=== PATIENT | male | born 1950 | race Caucasian/White ===

== ENCOUNTER → 2018-08-24 | Outpatient (CLI) | payer MEDICARE ==
[~2018-08-24] MED LIST: CYCL10TA9 PO; LISI40TA PO; MTF500T PO; NAPR-243 PO; PROP80CA4 PO; ROSU10TA12 PO; SILD100T PO
--- NOTE | 2018-08-24 15:26 | Diagnostic Imaging Report ---
INDICATION: Renal insufficiency. TECHNIQUE: Bilateral renal sonography was performed in the routine fashion. FINDINGS: The right kidney measures 12.9 x 5.1 x 5.6 cm. The left kidney measures 13.2 x 6.0 x 5.4 cm. Both kidneys show normal cortical echogenicity and thickness with no hydronephrosis or mass. There are bilateral ureteral jets. The urinary bladder appears unremarkable. IMPRESSION: Unremarkable bilateral renal sonography. Dictated by: Dictated on workstation # [id number]
== END ==
LOC: RAD 13:38
PROVIDERS: ATTEND Family Medicine
DX: N28.9 Disorder of kidney and ureter, unspecified (principal)
CPT/HCPCS: 76770

== ENCOUNTER 2019-10-14 21:51 | Emergency (ER) | payer MEDICARE ==
[~2019-10-14] VITALS: Ht 190.5 cm; Wt 105.0 kg
--- OUTSIDE RECORDS SUMMARY | 2019-10-14 22:25 | XMS REPORT | CCD ---
Author Author Inocente Og D.O. Organization [facility] Address [address] [place] [address] Phone Care Team Providers Care [place] Name Role Phone Najma Og D.O. PP Unavailable CCM Unavailable Summary Purpose Interface Exchange Insurance Providers Payer name Policy type / Coverage type Covered republican ID Effective Begin Date Effective End Date [employer]RO[employer] MEDICARE Medicare Part B [id number] Unknown [facility] Medicare Part B [id number] Un known Family history Father Diagnosis Age At Onset Diabetes mellitus Type 2 Unknown Myocardial infarction Unknown Brother Diagnosis Age At Onset Diabetes mellitus Type 2 Unknown Mother Diagnosis Age At Onset Osteoarthritis Unknown Cerebrovascular disease Unknown Social History Social History Element Codes Description Effective Dates Tobacco history SNOMED CT: 816535066 Never smoker 12/21/2014 Marital status Unknown 07/30/2010 Employment Unknown Retired 07/30/2010 Allergies, Adverse Reactions, Alerts Substance Reaction Codes Entered Date Inactivated Date Status * NO KNOWN ENVIRONMENTAL ALLERGIES Unknown 04/24/2010 N o Inactive Date Active * NO KNOWN FOOD ALLERGIES Unknown 04/24/2010 No Inactiv e Date Active * NO KNOWN DRUG ALLERGIES Unknown 04/24/2010 No Inactiv e Date Active Problems Condition Codes Effective Dates Condition Status Essential hypertension ICD-9: 401.9 ICD-10: I10 07/22/2013 Active Stress reaction ICD-9: 308.9 ICD-10: F43.0 08/30/2019 Active Type 2 diabetes mellitus with hyperglycemia ICD-9: 250 .02 ICD-10: E11.65 06/02/2019 Active Gastro-esophageal reflux disease without esophagitis I CD-9: 530.81 ICD-10: K21.9 06/02/2019 Active Mixed hyperlipidemia ICD-9: 272.2 ICD-10: E78.2 05/24/2019 Active Type 2 diabetes mellitus without complications ICD-9: 250.00 ICD-10: E11.9 09/18/2014 Active Chronic kidney disease, unspecified ICD-9: 585.9 ICD-10: N18.9 08/20/2018 Active Unspecified kidney failure ICD-9: 586 ICD-10: N19 08/19/2018 Active Type 1 diabetes mellitus with unspecified complication s ICD-9: 250.00 ICD-10: E10.8 09/18/2014 Active Mixed hyperlipidemia ICD-9: 272.4 ICD-10: E78.2 12/14/2013 Active Nicotine dependence, unspecified, uncomplicated ICD-9: 305.1 ICD-10: F17.200 07/09/2016 Active Encounter for screening for malignant neoplasm of pros sommers ICD-9: V76.44 ICD-10: Z12.5 08/30/2015 Active Male erectile disorder ICD-9: 607.84 ICD-10: F52.21 01/13/2018 Active Glossitis ICD-9: 529.0 ICD-10: K14.0 10/06/2017 Active Actinic keratosis ICD-9: 702.0 ICD-10: L57.0 03/02/2012 Active Other fatigue ICD-9: 780.79 ICD-10: R53.83 08/15/2014 Active Bitten or stung by nonvenomous insect an d other nonvenomous arthropods, subsequent encounter ICD-9: V58.89 ICD-10: W57.XXXD 09/11/2015 Active Insect bite (nonvenomous), right thigh, subsequent enc ounter ICD-9: V58.89 ICD-10: S70.361D 09/11/2015 Active Bitten or stung by nonvenomous insect an d other nonvenomous arthropods, initial encounter ICD-9: 919.4 ICD-10: W57.XXXA 09/09/2015 Active Insect bite (nonvenomous), right thigh, initial encoun ter ICD-9: 916.4 ICD-10: S70.361A 09/09/2015 Active Abnormal weight gain ICD-9: 783.1 ICD-10: R63.5 09/05/2015 Active Encounter for immunization ICD-9: V06.5 ICD-10: Z23 09/05/2015 Active Encounter for screening for malignant neoplasm of colo n ICD-9: V76.51 ICD-10: Z12.11 09/05/2015 Active Diarrhea, unspecified ICD-9: 787.91 ICD-10: R19.7 11/25/2012 Active FLU VACCINE ICD-9: V04.81 ICD-10: Z23 01/16/2015 Active PNEUMOCOCCAL VACCINE ICD-9: V03.82 ICD-10: Z23 01/16/2015 Active Impaired fasting glucose ICD-9: 790.21 ICD-10: R73.01 12/14/2013 Active ACTINIC KERATOSIS ICD-9: 702.0 03/02/2012 Active DM W/O COMPLICATION TYPE II ICD-9: 250.00 09/18/2014 Acti ve MALAISE AND FATIGUE ICD-9: 780.79 08/15/2014 Active HYPERLIPIDEMIA NEC/NOS ICD-9: 272.4 12/14/2013 Active IMPAIRED FASTING GLUCOSE ICD-9: 790.21 12/14/2013 Active Post herpetic neuralgia ICD-9: 053.19 09/23/2013 Active Shingles ICD-9: 053.9 09/23/2013 Active HYPERTENSION ICD-9: 401.9 07/22/2013 Active DIARRHEA ICD-9: 787.91 11/25/2012 Active Dry skin dermatitis ICD-9: 692.89 08/27/2012 Active Fungal dermatitis ICD-9: 111.9 08/27/2012 Active Hypertension Unknown 04/15/2011 Active URINARY TRACT INFECTION ICD-9: 599.0 10/29/2010 Active TOBACCO USE DISORDER ICD-9: 305.1 04/24/2010 Active Erectile dysfunction ICD-9: 607.84 04/19/2010 Active MIXED HYPERLIPIDEMIA ICD-9: 272.2 04/19/2010 Active Osteoarthritis ICD-9: 715.90 04/19/2010 Active ROUTINE MEDICAL EXAM ICD-9: V70.0 04/19/2010 Active Medications Medication Codes Instructions Start Date Stop Date Status Fill Instructions fenofibrate micronized 134 mg capsule RxNorm: 787874 1 Capsule(s) Oral QD for triglycerides 10/03/2019 01/01/2020 Active amlodipine 5 mg tablet RxNorm: 736665 TAKE 1 TABLET BY MOUTH ON CE DAILY 09/12/2019 12/10/2019 Active propranolol ER 80 mg capsule,24 hr,extended release RxNorm: 498203 TAKE 1 CAPSULE BY MOUTH ONCE DAILY 09/08/2019 12/06/2019 Active metformin ER 500 mg tablet,extended release 24 hr RxNorm: 86 0975 TAKE 1 TABLET BY MOUTH ONCE DAILY 09/08/2019 12/06/2019 Active escitalopram 10 mg tablet RxNorm: 722399 1 Tablet(s) Oral QD 201911/28/2019 Active fenofibrate micronized 134 mg capsule RxNorm: 424608 TA KE 1 CAPSULE BY MOUTH ONCE DAILY FOR TRIGLYCERIDES 07/08/2019 10/02/2019 Inactive amlodipine 5 mg tablet RxNorm: 303492 TAKE 1 TABLET BY MOUTH ON CE DAILY 06/16/2019 09/11/2019 Inactive metformin ER 500 mg tablet,extended release 24 hr RxNorm: 86 0975 TAKE 1 TABLET BY MOUTH ONCE DAILY 06/10/2019 09/07/2019 Inactive propranolol ER 80 mg capsule,24 hr,extended release RxNorm: 801289 TAKE 1 CAPSULE BY MOUTH ONCE DAILY 06/10/2019 09/07/2019 Inactive Vitamin D3 25 mcg (1,000 unit) capsule RxNorm: 127649 1 Capsule(s) Oral two times a day 06/02/2019 No Stop Date Active turmeric 400 mg capsule RxNorm: 1 Capsule(s) Oral QD 06/02/2019 No Stop Date Active Fish Oil 120 mg-180 mg-500 mg capsule RxNorm: 2 Capsule(s) Ora l QD 06/02/2019 No Stop Date Active 16.2 mg-0.1037 mg-0.0194 mg tablet RxNorm: 7108896 1 Tablet(s) Oral four times a day as needed abdominal pain/diarrhea 06/02/2019 No Stop D ate Active fenofibrate micronized 134 mg capsule RxNorm: 002266 1 Capsule(s) Oral QD for triglycerides 04/14/2019 07/07/2019 Inactive amlodipine 5 mg tablet RxNorm: 581178 TAKE 1 TABLET BY MOUTH ON CE DAILY 03/22/2019 06/15/2019 Inactive metformin ER 500 mg tablet,extended release 24 hr RxNorm: 86 0975 TAKE 1 TABLET BY MOUTH ONCE DAILY 03/15/2019 06/09/2019 Inactive propranolol ER 80 mg capsule,24 hr,extended release RxNorm: 829732 TAKE 1 CAPSULE BY MOUTH ONCE DAILY 03/15/2019 06/09/2019 Inactive amlodipine 5 mg tablet RxNorm: 725753 1 Tablet(s) PO QD 12/27/2018 Inactive fenofibrate micronized 134 mg capsule RxNorm: 329507 TA KE 1 CAPSULE BY MOUTH ONCE DAILY FOR TRIGLYCERIDES 10/11/2018 04/13/2019 Inactive amlodipine 5 mg tablet RxNorm: 965828 1 Tablet(s) PO QD 09/30/2018 Inactive metformin ER 500 mg tablet,extended release 24 hr RxNorm: 86 0975 TAKE 1 TABLET BY MOUTH ONCE DAILY 09/21/2018 03/14/2019 Inactive propranolol ER 80 mg capsule,24 hr,extended release RxNorm: 285811 TAKE 1 CAPSULE BY MOUTH ONCE DAILY 09/21/2018 03/14/2019 Inactive amlodipine 5 mg tablet RxNorm: 451661 1 Tablet(s) PO QD 08/25/2018 Inactive amlodipine 5 mg tablet RxNorm: 042121 1 Tablet(s) PO QD 08/25/2018 Inactive lisinopril 40 mg tablet RxNorm: 045604 TAKE 1 TABLET BY MOUTH O NCE DAILY 07/21/2018 08/24/2018 Inactive fenofibrate micronized 134 mg capsule RxNorm: 362522 TA KE 1 CAPSULE BY MOUTH ONCE DAILY FOR TRIGLYCERIDES 07/12/2018 10/10/2018 Inactive propranolol ER 80 mg capsule,24 hr,extended release RxNorm: 908354 TAKE 1 CAPSULE BY MOUTH ONCE DAILY 06/21/2018 09/20/2018 Inactive lisinopril 40 mg tablet RxNorm: 087109 TAKE 1 TABLET BY MOUTH O NCE DAILY 04/26/2018 07/20/2018 Inactive metformin ER 500 mg tablet,extended release 24 hr RxNorm: 262201 1 Tablet(s) QD 03/31/2018 09/20/2018 Inactive lisinopril 40 mg tablet RxNorm: 522527 TAKE 1 TABLET BY MOUTH O NCE DAILY 01/28/2018 04/25/2018 Inactive Vitamin D3 5,000 unit tablet RxNorm: 558749 1 Tablet(s) PO QD 01/1908/18/2018 Inactive fenofibrate micronized 134 mg capsule RxNorm: 901897 1 Capsule(s) PO QD for triglycerides 01/19/2018 07/11/2018 Inactive metformin ER 500 mg tablet,extended release 24 hr RxNorm: 472601 1 Tablet(s) QD 12/31/2017 03/30/2018 Inactive metformin ER 500 mg tablet,extended release 24 hr RxNorm: 421155 Tablet(s) 12/30/2017 12/30/2017 Inactive propranolol ER 80 mg capsule,24 hr,extended release RxNorm: 977756 1 Capsule(s) PO QD 12/17/2017 06/14/2018 Inactive metformin ER 500 mg tablet,extended release 24 hr RxNorm: 86 0975 1 Tablet(s) PO QD DUE FOR LABS AND APPT 12/02/2017 12/30/2017 Inactive Crestor 10 mg tablet RxNorm: 226927 TAKE ONE TABLET BY MOUTH ON CE DAILY 11/01/2017 01/18/2018 Inactive lisinopril 40 mg tablet RxNorm: 962277 TAKE ONE TABLET BY MOUTH ONCE DAILY 11/01/2017 01/27/2018 Inactive metformin ER 500 mg tablet,extended release 24 hr RxNorm: 86 0975 1 Tablet(s) PO QD DUE FOR LABS AND APPT 10/16/2017 10/30/2017 Inactive metformin ER 500 mg tablet,extended release 24 hr RxNorm: 86 0975 1 Tablet(s) PO QD DUE FOR LABS AND APPT 09/08/2017 09/22/2017 Inactive propranolol ER 80 mg capsule,24 hr,extended release RxNorm: 919887 1 Capsule(s) PO QD DUE FOR APPT 09/08/2017 12/17/2017 Inactive Crestor 10 mg tablet RxNorm: 524484 1 Tablet(s) PO QD T CHELSI ONE TABLET BY MOUTH DAILY 03/11/2017 09/06/2017 Inactive propranolol ER 80 mg capsule,24 hr,extended release RxNorm: 182238 1 Capsule(s) PO QD TAKE ONE CAPSULE BY MOUTH DAILY - REPLACES AMLODOPINE 03/11/2017 09/08/2017 Inactive metformin ER 500 mg tablet,extended release 24 hr RxNorm: 86 0975 1 Tablet(s) PO QD 03/11/2017 09/08/2017 Inactive lisinopril 40 mg tablet RxNorm: 647100 1 Tablet(s) PO QD 03/11/2017 0 09/06/2017 Inactive lisinopril 40 mg tablet RxNorm: 516031 1 Tablet(s) PO QD 02/16/2017 1 05/11/2016 Inactive metformin ER 500 mg tablet,extended release 24 hr RxNorm: 86 0975 1 Tablet(s) PO QD Due for labs and follow up before further refills 02/16/2017 017 Inactive propranolol ER 80 mg capsule,24 hr,extended release RxNorm: 579693 Capsule(s) TAKE ONE CAPSULE BY MOUTH DAILY - REPLACES AMLODOPINE 11/19/20162016 Inactive lisinopril 40 mg tablet RxNorm: 764889 1 Tablet(s) PO QD 11/17/2016 1 04/18/2016 Inactive metformin ER 500 mg tablet,extended release 24 hr RxNorm: 86 0975 1 Tablet(s) PO QD 11/17/2016 02/16/2017 Inactive lisinopril 40 mg tablet RxNorm: 243104 1 Tablet(s) PO Q D TAKE ONE TABLET BY MOUTH DAILY 08/19/2016 11/17/2016 Inactive metformin ER 500 mg tablet,extended release 24 hr RxNorm: 86 0975 Tablet(s) TAKE ONE TABLET BY MOUTH DAILY 08/19/2016 11/16/2016 Inactive propranolol ER 80 mg capsule,24 hr,extended release RxNorm: 194639 Capsule(s) TAKE ONE CAPSULE BY MOUTH DAILY - REPLACES AMLODOPINE 08/19/20162016 Inactive Crestor 10 mg tablet RxNorm: 191129 TAKE ONE TABLET BY MOUTH DAILY 06/16/2016 03/10/2017 Inactive lisinopril 40 mg tablet RxNorm: 268792 1 Tablet(s) PO Q D TAKE ONE TABLET BY MOUTH DAILY 05/23/2016 08/18/2016 Inactive metformin ER 500 mg tablet,extended release 24 hr RxNorm: 86 0975 TAKE ONE TABLET BY MOUTH DAILY 05/23/2016 08/19/2016 Inactive propranolol ER 80 mg capsule,24 hr,extended release RxNorm: 016767 TAKE ONE CAPSULE BY MOUTH DAILY - REPLACES AMLODOPINE 05/23/2016 08/19/2016 [place] [facility] Crestor 10 mg tablet RxNorm: 411377 TAKE ONE TABLET BY MOUTH DAILY 03/31/2016 06/15/2016 Inactive metformin ER 500 mg tablet,extended release 24 hr RxNorm: 86 0975 TAKE ONE TABLET BY MOUTH DAILY 02/19/2016 05/22/2016 Inactive propranolol ER 80 mg capsule,24 hr,extended release RxNorm: 043782 TAKE ONE CAPSULE BY MOUTH DAILY - REPLACES AMLODOPINE 11/23/2015 05/20/2016 [place] [facility] metformin ER 500 mg tablet,extended release 24 hr RxNorm: 86 0975 TAKE ONE TABLET BY MOUTH DAILY 11/08/2015 02/05/2016 Inactive Bactroban Nasal 2 % ointment RxNorm: 097486 Apply topic ally to affected area twice daily 09/10/2015 03/09/2016 Inactive Vibramycin 100 mg capsule RxNorm: 405960 1 Capsule(s) PO BID 201509/23/2015 Inactive lisinopril 40 mg tablet RxNorm: 039748 1 Tablet(s) PO Q D TAKE ONE TABLET BY MOUTH DAILY 08/27/2015 02/22/2016 Inactive metformin ER 500 mg tablet,extended release 24 hr RxNorm: 86 0975 TAKE ONE TABLET BY MOUTH DAILY 08/06/2015 11/03/2015 Inactive Levsin/SL 0.125 mg sublingual tablet RxNorm: 9429751 1 T ablet(s) SL Q4H as needed for stomach cramps 06/29/2015 07/03/2015 Inactive lisinopril 40 mg tablet RxNorm: 906420 Tablet(s) TAKE ONE TABLE T BY MOUTH DAILY 06/07/2015 08/26/2015 Inactive propranolol ER 80 mg capsule,24 hr,extended release RxNorm: 386914 TAKE ONE CAPSULE BY MOUTH DAILY - REPLACES AMLODOPINE 05/30/2015 11/22/2015 [place] [facility] metformin ER 500 mg tablet,extended release 24 hr RxNorm: 86 0975 1 Tablet(s) PO QD 05/10/2015 08/05/2015 Inactive Crestor 10 mg tablet RxNorm: 662980 TAKE ONE TABLET BY MOUTH DAILY 04/18/2015 10/14/2015 Inactive metformin ER 500 mg tablet,extended release 24 hr RxNorm: 86 0975 TAKE ONE TABLET BY MOUTH DAILY 02/07/2015 05/10/2015 Inactive sildenafil 20 mg tablet RxNorm: 709193 1 Tablet(s) PO QD 01/17/2015 1 04/17/2014 Inactive propranolol ER 80 mg capsule,24 hr,extended release RxNorm: 675301 1 Capsule(s) PO QD replaces amlodopine 11/28/2014 05/26/2015 Inactive [[facility] FOR UNINSURED PATIENTS -- BIN:[id number], PCN: ASPROD1, Group: [id number], ID# [id number], Process claim through [employer], for questions: . THIS IS NOT INSURANCE.] lisinopril 40 mg tablet RxNorm: 520676 TAKE ONE TABLET BY MOUTH DAILY 11/16/2014 06/07/2015 Inactive lisinopril 40 mg tablet RxNorm: 714440 1 Tablet(s) PO QD 08/21/2014 0 11/15/2014 Inactive [AttnRPh: Saving apply/adjudicate RxGRP: SG20 RxBIN:[id number] RxPCN: ID#:[id number]] lisinopril 40 mg tablet RxNorm: 595442 1 Tablet(s) PO Q D NEEDS SEEN FOR APPOINTMENT 07/14/2014 08/21/2014 Inactive [AttnRPh: Saving apply/adjudicate RxGRP:SG20 RxBIN:[id number] RxPCN: ID#:[id number]] Crestor 10 mg tablet RxNorm: 871993 TAKE ONE TABLET BY MOUTH EV EILEEN DAY 07/06/2014 01/01/2015 Inactive metformin ER 500 mg tablet,extended release 24 hr RxNorm: 86 0975 1 Tablet(s) QD TAKE ONE TABLET BY MOUTH ONCE A DAY 06/09/2014 12/05/2014 Inactive propranolol ER 80 mg capsule,24 hr,extended release RxNorm: 757101 1 Capsule(s) PO QD replaces amlodopine 06/05/2014 11/28/2014 Inactive [[facility] FOR UNINSURED PATIENTS -- BIN:[id number], PCN: [id number], Group: [id number], ID# [id number], Process claim through [employer], for questions: . THIS IS NOT INSURANCE.] propranolol ER 80 mg capsule,24 hr,extended release RxNorm: 769373 1 Capsule(s) PO QD replaces amlodopine 03/07/2014 06/05/2014 Inactive [[facility] FOR UNINSURED PATIENTS -- BIN:[id number], PCN: [id number], Group: [id number], ID# [id number], Process claim through [employer], for questions: . THIS IS NOT INSURANCE.] metformin ER 500 mg tablet,extended release 24 hr RxNorm: 86 0975 TAKE ONE TABLET BY MOUTH ONCE A DAY 12/15/2013 06/09/2014 Inactive propranolol ER 80 mg capsule,24 hr,extended release RxNorm: 046212 1 Capsule(s) PO QD replaces amlodopine 12/09/2013 03/07/2014 Inactive [[facility] -- BIN:292062, PCN: [id number], Group: [id number], ID# [id number], Process claim through [employer], for questions: . THIS IS NOT INSURANCE.] acyclovir 800 mg tablet RxNorm: 409313 1 Tablet(s) PO QID 09/23/2013 09/29/2013 Inactive gabapentin 300 mg capsule RxNorm: 070605 1 Capsule(s) PO BID 201310/07/2013 Inactive metformin ER 500 mg tablet,extended release 24 hr RxNorm: 86 0975 1 Tablet(s) PO QD 09/19/2013 12/14/2013 Inactive propranolol ER 80 mg capsule,24 hr,extended release RxNorm: 779765 1 Capsule(s) PO QD replaces amlodopine 09/15/2013 12/09/2013 Inactive metformin ER 500 mg 24 hr tablet,extended release RxNorm: 86 0975 1 Tablet(s) PO QD 09/15/2013 09/18/2013 Inactive lisinopril 40 mg tablet RxNorm: 092648 1 Tablet(s) PO QD 07/19/2013 0 07/14/2014 Inactive Crestor 10 mg tablet RxNorm: 901328 Tablet(s) PO TAKE O NE TABLET BY MOUTH EVERY DAY 07/12/2013 07/05/2014 Inactive propranolol ER 80 mg capsule,24 hr,extended release RxNorm: 688022 1 Capsule(s) PO QD replaces amlodopine 06/20/2013 09/15/2013 Inactive triamcinolone acetonide 0.1 % topical ointment RxNorm: 87248 36 Application TOP BID 06/20/2013 06/26/2013 Inactive Crestor 10 mg tablet RxNorm: 339139 1 Tablet(s) PO QD 04/18/201310/2013 Inactive Viagra 100 mg tablet RxNorm: 417478 1 Tablet(s) PO as directed 01/0508/18/2018 Inactive TAKE ONE TABLET BY MOUTH DIRECTED Crestor 10 mg tablet RxNorm: 819477 1 Tablet(s) PO QD 01/17/201304/06 Inactive metformin ER 500 mg tablet,extended release 24 hr RxNorm: 86 0975 1 Tablet(s) PO QD TAKE ONE TABLET BY MOUTH EVERY DAY 12/23/2012 09/15/2013 Inactive triamcinolone acetonide 0.1 % topical ointment RxNorm: 10608 36 Application TOP BID 08/27/2012 09/02/2012 Inactive ketoconazole 2 % topical cream RxNorm: 575677 1 Application TOP QAM 08/27/2012 09/02/2012 Inactive lisinopril 40 mg tablet RxNorm: 242835 1 Tablet(s) PO QD 07/21/2012 0 07/15/2013 Inactive Crestor 10 mg tablet RxNorm: 703765 1 Tablet(s) PO QD 07/21/201210/04 Inactive amlodipine 10 mg tablet RxNorm: 642857 1 Tablet(s) PO QHS 07/21/2012 07/15/2013 Inactive metformin ER 500 mg tablet,extended release 24 hr RxNorm: 86 0977 Tablet(s) PO TAKE ONE TABLET BY MOUTH EVERY DAY 03/31/2012 12/22/2012 Inactive lisinopril 40 mg tablet RxNorm: 940930 1 Tablet(s) PO QD 07/29/2011 0 07/20/2012 Inactive amlodipine 10 mg tablet RxNorm: 958790 1 Tablet(s) PO QHS 07/29/2011 07/20/2012 Inactive amlodipine 10 mg Tab RxNorm: 417277 1 Tablet(s) PO QHS 07/29/2011 Inactive Viagra 100 mg tablet RxNorm: 161350 1 Tablet(s) PO as directed 07/0601/24/2013 Inactive TAKE ONE TABLET BY MOUTH DIRECTED Crestor 10 mg tablet RxNorm: 379402 1 Tablet(s) PO QD 07/29/201107/05 Inactive Norvasc 5 mg Tab RxNorm: 629484 1 Tablet(s) PO QD 07/16/2011 07/28/19 12 Inactive Norvasc 5 mg Tab RxNorm: 350293 1 Tablet(s) PO QD 06/26/2011 07/15/19 12 Inactive lisinopril 40 mg Tab RxNorm: 235423 1 Tablet(s) PO QD 05/13/201107/06 Inactive metformin ER 500 mg tablet,extended release 24 hr RxNorm: 86 0977 1 Tablet(s) PO QD 03/18/2011 07/28/2011 Inactive Crestor 10 mg Tab RxNorm: 875233 1 Tablet(s) PO QHS 01/27/20112011 Inactive metformin ER 500 mg 24 hr Tab RxNorm: 335199 1 Tablet(s) PO QD 11/0403/17/2011 Inactive Viagra 100 mg Tab RxNorm: 753709 Tablet(s) PO TAKE ON E TABLET BY MOUTH DIRECTED 08/26/2010 07/28/2011 Inactive metformin ER 500 mg 24 hr Tab RxNorm: 117723 1 Tablet(s) PO QD 07/0611/18/2010 Inactive Crestor 10 mg Tab RxNorm: 022106 1 Tablet(s) PO QHS 07/30/20102010 Inactive Crestor 10 mg Tab RxNorm: 645057 1 Tablet(s) PO QHS 05/20/20102010 Inactive Wellbutrin SR 150 mg Tab RxNorm: 865241 1 Tablet(s) PO QAM 04/24/19 11 07/22/2010 Inactive Multivitamin And Mineral tablet RxNorm: 1 Tablet(s) PO QD No Start Date Active FreeStyle Lite Strips RxNorm: 1 Unit Dose Miscel laneous AC & HS check blood sugar AC and HS No Start Date Active Co Q-10 200 mg capsule RxNorm: 770513 1 Capsule(s) PO QD No Start Date Active lancets RxNorm: 1 Milliliter(s) Miscellaneous AC & HS No Start Robert e Active Vitamin D3 4,000 unit capsule RxNorm: 9202003 1 Capsule(s) PO QD No Start Date 07/08/2016 Inactive Fish Oil 360 mg-1,200 mg capsule RxNorm: 026152 2 Capsule(s) PO QD No Start Date 01/30/2019 Inactive hydrocodone 5 mg-acetaminophen 325 mg tablet RxNorm: 492569 1 Tablet(s) PO Q4H as needed for severe pain No Start Date 12/30/2015 Inactive Xanax 0.25 mg tablet RxNorm: 772669 1/2 Tablet(s) PO PRN for se andrea stress No Start Date 07/08/2016 Inactive lisinopril 40 mg Tab RxNorm: 067836 1 Tablet(s) PO QD No Start Date 0 05/12/2011 Inactive Fish Oil 1,000 mg capsule RxNorm: 1 Capsule(s) PO QD No Start Date 09/18/2014 Inactive naproxen 500 mg Tab RxNorm: 757074 1 Tablet(s) PO BID No Start Date 0 07/28/2011 Inactive aspirin 81 mg tablet RxNorm: 048423 1 Tablet(s) PO QD No Start Date 0 05/09/2018 Inactive Crestor 10 mg Tab RxNorm: 808798 1 Tablet(s) PO QD No Start Date 07/06 Inactive Crestor 5 mg tablet RxNorm: 798172 1 Tablet(s) PO QD No Start Date Inactive Fish Oil Oral RxNorm: Oral No Start Date 09/18/2014 Inactive Viagra 100 mg Tab RxNorm: 730661 1 Tablet(s) PO as directed No Star t Date 08/25/2010 Inactive metformin ER 500 mg 24 hr tablet,extended release RxNorm: 86 0975 1 Tablet(s) PO QD No Start Date 09/14/2013 Inactive Medication Administered No Medication Administered data Immunizations Vaccine Codes Date Status Influenza CVX: 135 01/26/2019 Complete Influenza CVX: 135 01/26/2019 Complete Pneumococcal CVX: 33 09/06/2015 Influenza CVX: 135 01/17/2015 Pneumococcal CVX: 133 01/17/2015 Results Observation Observation Code Item Item Code Result Date [facility] Location GLYCOSYLATED HEMOGLOBIN TEST 04812 Hgb A1c 13054-8 6.6 % 0 08/24/2019 Unknown MEAN GLUC 8466827 Calc Mean Gluc 143 mg/dL 08/24/2019 Unkn own COMPREHENSIVE METABOLIC 60776 AST 24 U/L 2019 Unknown COMPREHENSIVE METABOLIC 46096 ALT 32 U/L 2019 Unknown COMPREHENSIVE METABOLIC 82061 BUN 14 mg/dL 2019 Unknown COMPREHENSIVE METABOLIC 33355 ALBUMIN 4.7 g/dL 2019 Unknown COMPREHENSIVE METABOLIC 09909 CHLORIDE 103 mmol/L 08/23 Unknown COMPREHENSIVE METABOLIC 75970 Bili Total 0.5 mg/dL 08/23 Unknown COMPREHENSIVE METABOLIC 15701 ALK PHOS 57 U/L 2019 Unknown COMPREHENSIVE METABOLIC 74880 SODIUM 140 mmol/L 08/23 Unknown COMPREHENSIVE METABOLIC 19408 CREATININE 1.20 mg/dL 08/05 Unknown COMPREHENSIVE METABOLIC 17999 CALCIUM 9.9 mg/dL 2019 Unknown COMPREHENSIVE METABOLIC 98276 POTASSIUM 4.4 mmol/L 08/23 Unknown COMPREHENSIVE METABOLIC 62582 Total Protein 6.9 g/dL Unknown COMPREHENSIVE METABOLIC 20485 Glucose 123 mg/dL 2019 Unknown COMPREHENSIVE METABOLIC 04274 Bicarbonate 25 mmol/L 08/05 Unknown COMPREHENSIVE METABOLIC 50463 AGAP 12 mmol/L 2019 Unknown GFR CALC 2326433 GFR Afr Amr >60 mL/min 08/24/2019 Unknow n GFR CALC 5862351 GFR Non Afr Amr 60 mL/min 08/24/2019 Unk nown GLYCOSYLATED HEMOGLOBIN TEST 29989 Hgb A1c 10833-6 6.7 % 0 05/24/2019 Unknown COMPREHENSIVE METABOLIC 26431 AST 21 U/L 2019 Unknown COMPREHENSIVE METABOLIC 92476 ALT 26 U/L 2019 Unknown COMPREHENSIVE METABOLIC 28748 BUN 14 mg/dL 2019 Unknown COMPREHENSIVE METABOLIC 19305 ALBUMIN 4.4 g/dL 2019 Unknown COMPREHENSIVE METABOLIC 22174 CHLORIDE 102 mmol/L 05/24 Unknown COMPREHENSIVE METABOLIC 64881 Bili Total 0.4 mg/dL 05/24 Unknown COMPREHENSIVE METABOLIC 49383 ALK PHOS 55 U/L 2019 Unknown COMPREHENSIVE METABOLIC 06838 SODIUM 139 mmol/L 05/24 Unknown COMPREHENSIVE METABOLIC 69539 CREATININE 1.28 mg/dL 05/07 Unknown COMPREHENSIVE METABOLIC 38770 CALCIUM 9.7 mg/dL 2019 Unknown COMPREHENSIVE METABOLIC 03486 POTASSIUM 4.7 mmol/L 05/24 Unknown COMPREHENSIVE METABOLIC 18127 Total Protein 6.8 g/dL Unknown COMPREHENSIVE METABOLIC 61449 Glucose 130 mg/dL 2019 Unknown COMPREHENSIVE METABOLIC 19452 Bicarbonate 29 mmol/L 05/07 Unknown COMPREHENSIVE METABOLIC 24503 AGAP 8 mmol/L 2019 Unknown MEAN GLUC 8398916 Calc Mean Gluc 146 mg/dL 05/24/2019 Unkn own GFR CALC 1302770 GFR Afr Amr >60 mL/min 05/24/2019 Unknow n GFR CALC 2761105 GFR Non Afr Amr 56 mL/min 05/24/2019 Unk nown MEAN GLUC 1422904 Calc Mean Gluc 140 mg/dL 01/26/2019 Unkn own GLYCOSYLATED HEMOGLOBIN TEST 26664 Hgb A1c 76549-3 6.5 % 1 Unknown COMPREHENSIVE METABOLIC 78966 AST 17 U/L 2018 Unknown COMPREHENSIVE METABOLIC 23266 ALT 19 U/L 2018 Unknown COMPREHENSIVE METABOLIC 99087 BUN 19 mg/dL 2018 Unknown COMPREHENSIVE METABOLIC 78690 ALBUMIN 4.3 g/dL 2018 Unknown COMPREHENSIVE METABOLIC 85532 CHLORIDE 103 mmol/L 01/26 Unknown COMPREHENSIVE METABOLIC 93921 Bili Total 0.6 mg/dL 01/26 Unknown COMPREHENSIVE METABOLIC 46802 ALK PHOS 60 U/L 2018 Unknown COMPREHENSIVE METABOLIC 33530 SODIUM 140 mmol/L 01/26 Unknown COMPREHENSIVE METABOLIC 33032 CREATININE 1.21 mg/dL 01/05 Unknown COMPREHENSIVE METABOLIC 61245 CALCIUM 9.6 mg/dL 2018 Unknown COMPREHENSIVE METABOLIC 45463 POTASSIUM 4.5 mmol/L 01/26 Unknown COMPREHENSIVE METABOLIC 77960 Total Protein 6.7 g/dL Unknown COMPREHENSIVE METABOLIC 91348 Glucose 111 mg/dL 2018 Unknown COMPREHENSIVE METABOLIC 42606 Bicarbonate 28 mmol/L 01/05 Unknown COMPREHENSIVE METABOLIC 60109 AGAP 9 mmol/L 2018 Unknown COMPLETE BLOOD COUNT [id number] WBC 10.7 10e9/L 019 Unknown COMPLETE BLOOD COUNT [id number] RBC 4.38 10e12/L 2018 Unknown COMPLETE BLOOD COUNT [id number] HEMOGLOBIN 13.7 g/dL 01/27/20 19 Unknown COMPLETE BLOOD COUNT [id number] HEMATOCRIT 42.0 % 01/27/20 19 Unknown COMPLETE BLOOD COUNT [id number] MCV 95.9 fL 9 Unknown COMPLETE BLOOD COUNT [id number] MCH 31.3 pg 9 Unknown COMPLETE BLOOD COUNT [id number] MCHC 32.6 g/dL 9 Unknown COMPLETE BLOOD COUNT [id number] PLATELET COUNT 232 10e9/L Unknown COMPLETE BLOOD COUNT [id number] Mean Plt Volume 11.4 fL Unknown COMPLETE BLOOD COUNT [id number] Neut Auto 68.7 % 9 Unknown COMPLETE BLOOD COUNT [id number] Lymph Auto 21.2 % 01/27/20 19 Unknown COMPLETE BLOOD COUNT [id number] [place] Auto 8.1 % 9 Unknown COMPLETE BLOOD COUNT [id number] RDW 14.1 % 9 Unknown COMPLETE BLOOD COUNT 9008951 Eos Auto 1.8 % 9 Unknown COMPLETE BLOOD COUNT 8694526 Baso Auto 0.2 % 9 Unknown COMPLETE BLOOD COUNT [id number] Neutrophil Abs 7.35 10e9/L Unknown COMPLETE BLOOD COUNT [id number] Lymphocyte Abs 2.27 10e9/L Unknown COMPLETE BLOOD COUNT [id number] Monocyte Abs 0.87 10e9/L 01/05 Unknown COMPLETE BLOOD COUNT [id number] Eosinophil Abs 0.19 10e9/L Unknown COMPLETE BLOOD COUNT 4298159 RDW-SD 47.7 fL 9 Unknown COMPLETE BLOOD COUNT [id number] Basophil Abs 0.02 10e9/L 01/05 Unknown GFR CALC [id number] GFR Non Afr Amr 59 mL/min 01/26/2019 Unk nown GFR CALC [id number] GFR Afr Amr >60 mL/min 01/26/2019 Unknow n LIPID GROUP 92305 Cholesterol 215 mg/dL 01/26/2019 Unkno wn LIPID GROUP 08872 Triglyceride 221 mg/dL 01/26/2019 Unkn own LIPID GROUP 51807 HDL CHOLESTEROL 41 mg/dL 01/26/2019 U nknown LIPID GROUP 49600 Chol/HDL Ratio 5.24 ratio 01/26/2019 U nknown LIPID GROUP 56727 NON-HDL Chol 174 mg/dL 01/26/2019 Unkn own LIPID GROUP 82634 LDL Cholesterol 130 mg/dL 01/26/2019 [place] [address] Glucose 104 mg/dL 09/30 [place] [address] CREATININE 1.18 mg/dL [place] [address] BUN 19 mg/dL 09/30 [place] [address] SODIUM 139 mmol/L 09/05 [place] [address] POTASSIUM 4.1 mmol/L 09/05 [place] [address] CHLORIDE 105 mmol/L 09/05 [place] [address] Bicarbonate 26 mmol/L [place] [address] AGAP 8 mmol/L 09/30 [place] [address] CALCIUM 9.3 mg/dL 09/30 Unknown GFR CALC 1578859 GFR Non Afr Amr >60 mL/min 09/30/2018 Un known GFR CALC 6743464 GFR Afr Amr >60 mL/min 09/30/2018 Unknow n MICROALBUMIN URINE RANDOM 56889 U Microalbumin <2.0 mg/L 08/19/2018 Unknown MICROALBUMIN URINE RANDOM 04803 U Creatinine 66 mg/dL 0 08/19/2018 Unknown MICROALBUMIN URINE RANDOM 02138 ALB/CR Ratio <3.0 mg/gCR 08/19/2018 Unknown COMPREHENSIVE METABOLIC 53143 AST 21 U/L 2018 Unknown COMPREHENSIVE METABOLIC 97273 ALT 20 U/L 2018 Unknown COMPREHENSIVE METABOLIC 46861 BUN 31 mg/dL 2018 Unknown COMPREHENSIVE METABOLIC 87942 ALBUMIN 4.4 g/dL 2018 Unknown COMPREHENSIVE METABOLIC 53810 CHLORIDE 105 mmol/L 08/16 Unknown COMPREHENSIVE METABOLIC 54402 Bili Total 0.5 mg/dL 08/16 Unknown COMPREHENSIVE METABOLIC 41980 ALK PHOS 40 U/L 2018 Unknown COMPREHENSIVE METABOLIC 24722 SODIUM 140 mmol/L 08/16 Unknown COMPREHENSIVE METABOLIC 29370 CREATININE 1.45 mg/dL 08/04 Unknown COMPREHENSIVE METABOLIC 76870 CALCIUM 9.8 mg/dL 2018 Unknown COMPREHENSIVE METABOLIC 74432 POTASSIUM 5.1 mmol/L 08/16 Unknown COMPREHENSIVE METABOLIC 45932 Total Protein 6.9 g/dL Unknown COMPREHENSIVE METABOLIC 63985 Glucose 110 mg/dL 2018 Unknown COMPREHENSIVE METABOLIC 49007 Bicarbonate 25 mmol/L 08/04 Unknown COMPREHENSIVE METABOLIC 42515 AGAP 10 mmol/L 2018 Unknown GFR CALC 7117522 GFR Afr Amr 58 mL/min 08/16/2018 Unknown GFR CALC 5692041 GFR Non Afr Amr 48 mL/min 08/16/2018 Unk nown GLYCOSYLATED HEMOGLOBIN TEST 81316 Hgb A1c 01745-3 5.9 % 0 08/16/2018 Unknown LIPID GROUP 22269 Cholesterol 226 mg/dL 08/16/2018 Unkno wn LIPID GROUP 58971 Triglyceride 335 mg/dL 08/16/2018 Unkn own LIPID GROUP 88125 HDL CHOLESTEROL 32 mg/dL 08/16/2018 U nknown LIPID GROUP 86102 Chol/HDL Ratio 7.06 ratio 08/16/2018 U nknown LIPID GROUP 48243 NON-HDL Chol 194 mg/dL 08/16/2018 Unkn own LIPID GROUP 06301 LDL Cholesterol 127 mg/dL 08/16/2018 U nknown THYROID STIMULATING HORMONE 33583 TSH 2.475 uIU/mL 08/16/2018 Unknown COMPLETE BLOOD COUNT 9283755 WBC 7.5 10e9/L 08/17/19 19 Unknown COMPLETE BLOOD COUNT [id number] RBC 4.09 10e12/L 2018 Unknown COMPLETE BLOOD COUNT 1442326 HEMOGLOBIN 12.9 g/dL 08/17/19 19 Unknown COMPLETE BLOOD COUNT [id number] HEMATOCRIT 40.0 % 08/17/19 19 Unknown COMPLETE BLOOD COUNT [id number] MCV 97.8 fL 9 Unknown COMPLETE BLOOD COUNT 0751004 MCH 31.5 pg 9 Unknown COMPLETE BLOOD COUNT 0689552 MCHC 32.3 g/dL 9 Unknown COMPLETE BLOOD COUNT 7759604 PLATELET COUNT 258 10e9/L Unknown COMPLETE BLOOD COUNT 1926788 Mean Plt Volume 11.4 fL Unknown COMPLETE BLOOD COUNT 2446824 Neut Auto 62.9 % 9 Unknown COMPLETE BLOOD COUNT 0999116 Lymph Auto 27.3 % 08/17/19 19 Unknown COMPLETE BLOOD COUNT 7229843 [place] Auto 8.2 % 9 Unknown COMPLETE BLOOD COUNT 5509456 RDW 13.3 % 9 Unknown COMPLETE BLOOD COUNT 6139085 Eos Auto 1.5 % 9 Unknown COMPLETE BLOOD COUNT 9117465 Baso Auto 0.1 % 9 Unknown COMPLETE BLOOD COUNT 0876362 Neutrophil Abs 4.72 10e9/L Unknown COMPLETE BLOOD COUNT 1994861 Lymphocyte Abs 2.05 10e9/L Unknown COMPLETE BLOOD COUNT [id number] Monocyte Abs 0.62 10e9/L 08/04 Unknown COMPLETE BLOOD COUNT [id number] Eosinophil Abs 0.11 10e9/L Unknown COMPLETE BLOOD COUNT 9379521 RDW-SD 46.7 fL 9 Unknown COMPLETE BLOOD COUNT [id number] Basophil Abs 0.01 10e9/L 08/04 Unknown MEAN GLUC 2160418 Calc Mean Gluc 123 mg/dL 08/16/2018 Unkn own LIPID GROUP 19497 Cholesterol 212 mg/dL 05/05/2018 Unkno wn LIPID GROUP 74601 Triglyceride 271 mg/dL 05/05/2018 Unkn own LIPID GROUP 92156 HDL CHOLESTEROL 38 mg/dL 05/05/2018 U nknown LIPID GROUP 55937 Chol/HDL Ratio 5.58 ratio 05/05/2018 U nknown LIPID GROUP 59087 NON-HDL Chol 174 mg/dL 05/05/2018 Unkn own LIPID GROUP 96920 LDL Cholesterol 120 mg/dL 05/05/2018 U nknown GFR CALC 5455484 GFR Non Afr Amr 49 mL/min 05/05/2018 Unk nown GFR CALC 7696369 GFR Afr Amr 59 mL/min 05/05/2018 Unknown GLYCOSYLATED HEMOGLOBIN TEST 47259 Hgb A1c 98498-8 6.0 % 0 05/05/2018 Unknown MEAN GLUC 1549540 Calc Mean Gluc 126 mg/dL 05/05/2018 Unkn own COMPREHENSIVE METABOLIC 69613 AST 18 U/L 2018 Unknown COMPREHENSIVE METABOLIC 31784 ALT 23 U/L 2018 Unknown COMPREHENSIVE METABOLIC 07070 BUN 30 mg/dL 2018 Unknown COMPREHENSIVE METABOLIC 84321 ALBUMIN 4.3 g/dL 2018 Unknown COMPREHENSIVE METABOLIC 05426 CHLORIDE 106 mmol/L 05/05 Unknown COMPREHENSIVE METABOLIC 67656 Bili Total 0.4 mg/dL 05/05 Unknown COMPREHENSIVE METABOLIC 01821 ALK PHOS 39 U/L 2018 Unknown COMPREHENSIVE METABOLIC 78095 SODIUM 139 mmol/L 05/05 Unknown COMPREHENSIVE METABOLIC 03232 CREATININE 1.44 mg/dL 04/08 Unknown COMPREHENSIVE METABOLIC 88097 CALCIUM 9.6 mg/dL 2018 Unknown COMPREHENSIVE METABOLIC 47760 POTASSIUM 4.7 mmol/L 05/05 Unknown COMPREHENSIVE METABOLIC 78035 Total Protein 6.6 g/dL Unknown COMPREHENSIVE METABOLIC 79755 Glucose 112 mg/dL 2018 Unknown COMPREHENSIVE METABOLIC 05948 Bicarbonate 28 mmol/L 04/08 Unknown COMPREHENSIVE METABOLIC 94214 AGAP 5 mmol/L 2018 Unknown THYROID STIMULATING HORMONE 22009 TSH 3.725 uIU/mL 05/05/2018 Unknown COMPLETE BLOOD COUNT 5830644 WBC 8.2 10e9/L 05/05/19 19 Unknown COMPLETE BLOOD COUNT [id number] RBC 4.02 10e12/L 2018 Unknown COMPLETE BLOOD COUNT [id number] HEMOGLOBIN 12.7 g/dL 05/05/19 19 Unknown COMPLETE BLOOD COUNT 4475903 HEMATOCRIT 39.3 % 05/05/19 19 Unknown COMPLETE BLOOD COUNT 3122789 MCV 97.8 fL 9 Unknown COMPLETE BLOOD COUNT 2020374 MCH 31.6 pg 9 Unknown COMPLETE BLOOD COUNT 1435714 MCHC 32.3 g/dL 9 Unknown COMPLETE BLOOD COUNT 2912315 PLATELET COUNT 213 10e9/L Unknown COMPLETE BLOOD COUNT 4675657 Mean Plt Volume 11.7 fL Unknown COMPLETE BLOOD COUNT 6770112 Neut Auto 55.7 % 9 Unknown COMPLETE BLOOD COUNT 1486269 Lymph Auto 33.2 % 05/05/19 19 Unknown COMPLETE BLOOD COUNT 3343880 [place] Auto 8.5 % 9 Unknown COMPLETE BLOOD COUNT 2033632 RDW 13.9 % 9 Unknown COMPLETE BLOOD COUNT 4696466 Eos Auto 2.4 % 9 Unknown COMPLETE BLOOD COUNT 4016643 Baso Auto 0.2 % 9 Unknown COMPLETE BLOOD COUNT 1027824 Neutrophil Abs 4.57 10e9/L Unknown COMPLETE BLOOD COUNT 5387132 Lymphocyte Abs 2.72 10e9/L Unknown COMPLETE BLOOD COUNT 3948757 Monocyte Abs 0.70 10e9/L 04/08 Unknown COMPLETE BLOOD COUNT 1368089 Eosinophil Abs 0.20 10e9/L Unknown COMPLETE BLOOD COUNT [id number] Basophil Abs 0.02 10e9/L 04/08 Unknown COMPLETE BLOOD COUNT [id number] RDW-SD 48.8 fL 01/30/201 9 Unknown MICROALBUMIN URINE RANDOM 09926 U Microalbumin 19.3 mg/L 01/19/2018 Unknown MICROALBUMIN URINE RANDOM 82998 U Creatinine 96 mg/dL 1 Unknown MICROALBUMIN URINE RANDOM 80459 ALB/CR Ratio 20.1 mg/gCR 01/19/2018 Unknown LIPID GROUP 83603 Cholesterol 173 mg/dL 01/13/2018 Unkno wn LIPID GROUP 75816 Triglyceride 386 mg/dL 01/13/2018 Unkn own LIPID GROUP 53552 HDL CHOLESTEROL 37 mg/dL 01/13/2018 U nknown LIPID GROUP 37494 Chol/HDL Ratio 4.68 ratio 01/13/2018 U nknown LIPID GROUP 86979 NON-HDL Chol 136 mg/dL 01/13/2018 Unkn own LIPID GROUP 79191 LDL Cholesterol 59 mg/dL 01/13/2018 U nknown COMPLETE BLOOD COUNT 2768816 WBC TNP:Client Request 01/13/2018 Unknown COMPLETE BLOOD COUNT [id number] RBC TNP:Client Request 01/13/2018 Unknown COMPLETE BLOOD COUNT 9304044 HEMOGLOBIN TNP:Client Request 01/13/2018 Unknown COMPLETE BLOOD COUNT [id number] HEMATOCRIT TNP:Client Request 01/13/2018 Unknown COMPLETE BLOOD COUNT [id number] MCV TNP:Client Request 01/13/2018 Unknown COMPLETE BLOOD COUNT 6016689 MCH TNP:Client Request 01/13/2018 Unknown COMPLETE BLOOD COUNT [id number] MCHC TNP:Client Request 01/13/2018 Unknown COMPLETE BLOOD COUNT [id number] PLATELET COUNT TNP:Client Req uest 01/13/2018 Unknown COMPLETE BLOOD COUNT 6738913 Mean Plt Volume TNP:Client Re quest 01/13/2018 Unknown COMPLETE BLOOD COUNT [id number] Neut Auto TNP:Client Request 01/13/2018 Unknown COMPLETE BLOOD COUNT [id number] Lymph Auto TNP:Client Request 01/13/2018 Unknown COMPLETE BLOOD COUNT [id number] [place] Auto TNP:Client Request 01/13/2018 Unknown COMPLETE BLOOD COUNT [id number] RDW TNP:Client Request 01/13/2018 Unknown COMPLETE BLOOD COUNT [id number] Eos Auto TNP:Client Request 01/13/2018 Unknown COMPLETE BLOOD COUNT [id number] Baso Auto TNP:Client Request 01/13/2018 Unknown COMPLETE BLOOD COUNT 1147568 Neutrophil Abs TNP:Client Req uest 01/13/2018 Unknown COMPLETE BLOOD COUNT [id number] Lymphocyte Abs TNP:Client Req uest 01/13/2018 Unknown COMPLETE BLOOD COUNT [id number] Monocyte Abs TNP:Client Reque st 01/13/2018 Unknown COMPLETE BLOOD COUNT [id number] Eosinophil Abs TNP:Client Req uest 01/13/2018 Unknown COMPLETE BLOOD COUNT [id number] Basophil Abs TNP:Client Reque st 01/13/2018 Unknown COMPLETE BLOOD COUNT [id number] RDW-SD TNP:Client Request 01/13/2018 Unknown GLYCOSYLATED HEMOGLOBIN TEST 00885 Hgb A1c 40421-1 6.2 % 1 Unknown THYROID STIMULATING HORMONE 85205 TSH 2.764 uIU/mL 01/13/2018 Unknown COMPREHENSIVE METABOLIC 34799 AST 19 U/L 2017 Unknown COMPREHENSIVE METABOLIC 37923 ALT 21 U/L 2017 Unknown COMPREHENSIVE METABOLIC 10145 BUN 16 mg/dL 2017 Unknown COMPREHENSIVE METABOLIC 35540 ALBUMIN 4.2 g/dL 2017 Unknown COMPREHENSIVE METABOLIC 28312 CHLORIDE 105 mmol/L 01/13 Unknown COMPREHENSIVE METABOLIC 24072 Bili Total 0.5 mg/dL 01/13 Unknown COMPREHENSIVE METABOLIC 98729 ALK PHOS 85 U/L 2017 Unknown COMPREHENSIVE METABOLIC 51201 SODIUM 139 mmol/L 01/13 Unknown COMPREHENSIVE METABOLIC 66497 CREATININE 1.07 mg/dL 01/04 Unknown COMPREHENSIVE METABOLIC 72898 CALCIUM 9.2 mg/dL 2017 Unknown COMPREHENSIVE METABOLIC 89336 POTASSIUM 4.4 mmol/L 01/13 Unknown COMPREHENSIVE METABOLIC 56671 Total Protein 7.7 g/dL Unknown COMPREHENSIVE METABOLIC 64436 Glucose 130 mg/dL 2017 Unknown COMPREHENSIVE METABOLIC 61114 Bicarbonate 27 mmol/L 01/04 Unknown COMPREHENSIVE METABOLIC 69367 AGAP 7 mmol/L 2017 Unknown PSA EQUIMOLAR JERSON 52138 PSA Total 1.16 ng/mL 8 Unknown MEAN GLUC 5687724 Calc Mean Gluc 131 mg/dL 01/13/2018 Unkn own GFR CALC 4148015 GFR Non Afr Amr >60 mL/min 01/13/2018 Un known GFR CALC 8900740 GFR Afr Amr >60 mL/min 01/13/2018 Unknow n MEAN GLUC 6020369 Calc Mean Gluc 134 mg/dL 10/06/2017 Unkn own GFR CALC 4187008 GFR Afr Amr >60 mL/min 10/06/2017 Unknow n GFR CALC 0842898 GFR Non Afr Amr >60 mL/min 10/06/2017 Un known GLYCOSYLATED HEMOGLOBIN TEST 14205 Hgb A1c 43782-8 6.3 % 0 10/06/2017 Unknown VITAMIN B 12 16404 VITAMIN B12 1202 pg/mL 10/06/2017 Unk nown COMPLETE BLOOD COUNT [id number] WBC 7.4 10e9/L 10/07/19 18 Unknown COMPLETE BLOOD COUNT [id number] RBC 4.24 10e12/L 2017 Unknown COMPLETE BLOOD COUNT [id number] HEMOGLOBIN 13.5 g/dL 10/07/19 18 Unknown COMPLETE BLOOD COUNT 9333734 HEMATOCRIT 41.6 % 10/07/19 18 Unknown COMPLETE BLOOD COUNT 0868537 MCV 98.1 fL 8 Unknown COMPLETE BLOOD COUNT 9643857 MCH 31.8 pg 8 Unknown COMPLETE BLOOD COUNT 1353793 MCHC 32.5 g/dL 8 Unknown COMPLETE BLOOD COUNT 9497203 PLATELET COUNT 223 10e9/L 06/2017 Unknown COMPLETE BLOOD COUNT 2310909 Mean Plt Volume 11.9 fL 06/2017 Unknown COMPLETE BLOOD COUNT 6057216 Neut Auto 58.0 % 8 Unknown COMPLETE BLOOD COUNT 6946109 Lymph Auto 29.7 % 10/07/19 18 Unknown COMPLETE BLOOD COUNT 9145918 [place] Auto 8.3 % 8 Unknown COMPLETE BLOOD COUNT 6201069 RDW 14.0 % 8 Unknown COMPLETE BLOOD COUNT 9665490 Eos Auto 3.7 % 8 Unknown COMPLETE BLOOD COUNT 7042884 Baso Auto 0.3 % 8 Unknown COMPLETE BLOOD COUNT [id number] Neutrophil Abs 4.29 10e9/L Unknown COMPLETE BLOOD COUNT 1121041 Lymphocyte Abs 2.20 10e9/L Unknown COMPLETE BLOOD COUNT [id number] Monocyte Abs 0.61 10e9/L 06/2017 Unknown COMPLETE BLOOD COUNT [id number] Eosinophil Abs 0.27 10e9/L Unknown COMPLETE BLOOD COUNT 0877881 Basophil Abs 0.02 10e9/L 06/2017 Unknown COMPLETE BLOOD COUNT [id number] RDW-SD 48.6 fL 07/03/201 8 Unknown LIPID GROUP 26259 Cholesterol 216 mg/dL 10/06/2017 Unkno wn LIPID GROUP 77462 Triglyceride 335 mg/dL 10/06/2017 Unkn own LIPID GROUP 49658 HDL CHOLESTEROL 33 mg/dL 10/06/2017 U nknown LIPID GROUP 07325 Chol/HDL Ratio 6.55 ratio 10/06/2017 U nknown LIPID GROUP 93489 NON-HDL Chol 183 mg/dL 10/06/2017 Unkn own LIPID GROUP 05015 LDL Cholesterol 116 mg/dL 10/06/2017 U nknown COMPREHENSIVE METABOLIC 35627 AST 15 U/L 2017 Unknown COMPREHENSIVE METABOLIC 32944 ALT 15 U/L 2017 Unknown COMPREHENSIVE METABOLIC 65682 BUN 21 mg/dL 2017 Unknown COMPREHENSIVE METABOLIC 14465 ALBUMIN 4.1 g/dL 2017 Unknown COMPREHENSIVE METABOLIC 52908 CHLORIDE 107 mmol/L 10/06 Unknown COMPREHENSIVE METABOLIC 45998 Bili Total 0.6 mg/dL 10/06 Unknown COMPREHENSIVE METABOLIC 99850 ALK PHOS 68 U/L 2017 Unknown COMPREHENSIVE METABOLIC 37159 SODIUM 140 mmol/L 10/06 Unknown COMPREHENSIVE METABOLIC 58017 CREATININE 1.12 mg/dL 06/2017 Unknown COMPREHENSIVE METABOLIC 08033 CALCIUM 9.7 mg/dL 2017 Unknown COMPREHENSIVE METABOLIC 42741 POTASSIUM 4.6 mmol/L 10/06 Unknown COMPREHENSIVE METABOLIC 19229 Total Protein 6.6 g/dL Unknown COMPREHENSIVE METABOLIC 10550 Glucose 114 mg/dL 2017 Unknown COMPREHENSIVE METABOLIC 25873 Bicarbonate 26 mmol/L 06/2017 Unknown COMPREHENSIVE METABOLIC 22258 AGAP 7 mmol/L 2017 Unknown GLYCOSYLATED HEMOGLOBIN TEST 43446 Hgb A1c 88583-7 6.1 % 1 05/05/2016 Unknown GFR CALC 5682753 GFR Non Afr Amr >60 mL/min 03/05/2017 Un known GFR CALC 0044360 GFR Afr Amr >60 mL/min 03/05/2017 Unknow n MEAN GLUC 8377422 Calc Mean Gluc 128 mg/dL 03/05/2017 Unkn own COMPREHENSIVE METABOLIC 61959 AST 18 U/L 2016 Unknown COMPREHENSIVE METABOLIC 45569 ALT 20 U/L 2016 Unknown COMPREHENSIVE METABOLIC 70126 BUN 15 mg/dL 2016 Unknown COMPREHENSIVE METABOLIC 08949 ALBUMIN 4.3 g/dL 2016 Unknown COMPREHENSIVE METABOLIC 58820 CHLORIDE 105 mmol/L 03/05 Unknown COMPREHENSIVE METABOLIC 79107 Bili Total 0.5 mg/dL 03/05 Unknown COMPREHENSIVE METABOLIC 44133 ALK PHOS 57 U/L 2016 Unknown COMPREHENSIVE METABOLIC 74849 SODIUM 141 mmol/L 03/05 Unknown COMPREHENSIVE METABOLIC 02981 CREATININE 1.07 mg/dL 02/06 Unknown COMPREHENSIVE METABOLIC 74911 CALCIUM 9.3 mg/dL 2016 Unknown COMPREHENSIVE METABOLIC 76870 POTASSIUM 4.8 mmol/L 03/05 Unknown COMPREHENSIVE METABOLIC 97398 Total Protein 6.2 g/dL Unknown COMPREHENSIVE METABOLIC 00801 Glucose 118 mg/dL 2016 Unknown COMPREHENSIVE METABOLIC 12306 Bicarbonate 29 mmol/L 02/06 Unknown COMPREHENSIVE METABOLIC 97747 AGAP 7 mmol/L 2016 Unknown FREE T4 62823 T4 Free 1.38 ng/dL 03/05/2017 Unknown COMPLETE BLOOD COUNT 2289180 WBC 8.4 10e9/L 03/05/20 17 Unknown COMPLETE BLOOD COUNT [id number] RBC 4.11 10e12/L 2016 Unknown COMPLETE BLOOD COUNT [id number] HEMOGLOBIN 12.8 g/dL 03/05/20 17 Unknown COMPLETE BLOOD COUNT 1343130 HEMATOCRIT 40.1 % 03/05/20 17 Unknown COMPLETE BLOOD COUNT [id number] MCV 97.6 fL 7 Unknown COMPLETE BLOOD COUNT 7328377 MCH 31.1 pg 7 Unknown COMPLETE BLOOD COUNT 8531403 MCHC 31.9 g/dL 7 Unknown COMPLETE BLOOD COUNT 4772882 PLATELET COUNT 184 10e9/L Unknown COMPLETE BLOOD COUNT 3233258 Mean Plt Volume 11.3 fL Unknown COMPLETE BLOOD COUNT 2090888 Neut Auto 62.5 % 7 Unknown COMPLETE BLOOD COUNT 4679022 Lymph Auto 26.4 % 03/05/20 17 Unknown COMPLETE BLOOD COUNT [id number] [place] Auto 7.9 % 7 Unknown COMPLETE BLOOD COUNT 2864548 RDW 13.5 % 7 Unknown COMPLETE BLOOD COUNT 2580742 Eos Auto 3.0 % 7 Unknown COMPLETE BLOOD COUNT 9694738 Baso Auto 0.2 % 7 Unknown COMPLETE BLOOD COUNT 2720416 Neutrophil Abs 5.25 10e9/L Unknown COMPLETE BLOOD COUNT [id number] Lymphocyte Abs 2.22 10e9/L Unknown COMPLETE BLOOD COUNT [id number] Monocyte Abs 0.66 10e9/L 02/06 Unknown COMPLETE BLOOD COUNT [id number] Eosinophil Abs 0.25 10e9/L Unknown COMPLETE BLOOD COUNT [id number] RDW-SD 46.7 fL 7 Unknown COMPLETE BLOOD COUNT [id number] Basophil Abs 0.02 10e9/L 02/06 Unknown THYROID STIMULATING HORMONE 32335 TSH 2.330 uIU/mL 03/05/2017 Unknown LIPID GROUP 83934 Cholesterol 135 mg/dL 03/05/2017 Unkno wn LIPID GROUP 96747 Triglyceride 297 mg/dL 03/05/2017 Unkn own LIPID GROUP 09841 HDL CHOLESTEROL 34 mg/dL 03/05/2017 U nknown LIPID GROUP 61879 Chol/HDL Ratio 3.97 ratio 03/05/2017 U nknown LIPID GROUP 89190 NON-HDL Chol 101 mg/dL 03/05/2017 Unkn own LIPID GROUP 39501 LDL Cholesterol 42 mg/dL 03/05/2017 U nknown GLYCOSYLATED HEMOGLOBIN TEST 47311 Hgb A1c 63211-7 6.5 % 1 05/07/2015 Unknown GFR CALC 0207706 GFR Non Afr Amr 55 mL/min 03/06/2016 Unk nown GFR CALC 4014488 GFR Afr Amr >60 mL/min 03/06/2016 Unknow n COMPLETE BLOOD COUNT 3866493 WBC 8.5 10e9/L 03/06/20 16 Unknown COMPLETE BLOOD COUNT 1367742 RBC 4.32 10e12/L 2015 Unknown COMPLETE BLOOD COUNT 8004505 HEMOGLOBIN 13.5 g/dL 03/06/20 16 Unknown COMPLETE BLOOD COUNT [id number] HEMATOCRIT 41.3 % 03/06/20 16 Unknown COMPLETE BLOOD COUNT 5779005 MCV 95.6 fL 6 Unknown COMPLETE BLOOD COUNT 2462553 MCH 31.3 pg 6 Unknown COMPLETE BLOOD COUNT 9977986 MCHC 32.7 g/dL 6 Unknown COMPLETE BLOOD COUNT 3434865 PLATELET COUNT 191 10e9/L 04/2015 Unknown COMPLETE BLOOD COUNT 2230004 Mean Plt Volume 11.7 fL 04/2015 Unknown COMPLETE BLOOD COUNT 9169779 Neut Auto 64.2 % 6 Unknown COMPLETE BLOOD COUNT [id number] Lymph Auto 25.9 % 03/06/20 16 Unknown COMPLETE BLOOD COUNT 5407296 [place] Auto 7.8 % 6 Unknown COMPLETE BLOOD COUNT 7484608 RDW 13.4 % 6 Unknown COMPLETE BLOOD COUNT 8038514 Eos Auto 2.0 % 6 Unknown COMPLETE BLOOD COUNT 7192885 Baso Auto 0.1 % 6 Unknown COMPLETE BLOOD COUNT [id number] Neutrophil Abs 5.46 10e9/L Unknown COMPLETE BLOOD COUNT 9337785 Lymphocyte Abs 2.20 10e9/L Unknown COMPLETE BLOOD COUNT [id number] Monocyte Abs 0.66 10e9/L 04/2015 Unknown COMPLETE BLOOD COUNT 3897852 Eosinophil Abs 0.17 10e9/L Unknown COMPLETE BLOOD COUNT [id number] RDW-SD 45.0 fL 6 Unknown COMPLETE BLOOD COUNT [id number] Basophil Abs 0.01 10e9/L 04/2015 Unknown FREE T4 75253 T4 Free 1.34 ng/dL 03/06/2016 Unknown MEAN GLUC 3906364 Calc Mean Gluc 140 mg/dL 03/06/2016 Unkn own COMPREHENSIVE METABOLIC 78716 AST 15 U/L 2015 Unknown COMPREHENSIVE METABOLIC 51289 ALT 18 U/L 2015 Unknown COMPREHENSIVE METABOLIC 19756 BUN 21 mg/dL 2015 Unknown COMPREHENSIVE METABOLIC 54673 ALBUMIN 4.3 g/dL 2015 Unknown COMPREHENSIVE METABOLIC 50590 CHLORIDE 103 mmol/L 03/06 Unknown COMPREHENSIVE METABOLIC 86328 Bili Total 0.4 mg/dL 03/06 Unknown COMPREHENSIVE METABOLIC 18439 ALK PHOS 68 U/L 2015 Unknown COMPREHENSIVE METABOLIC 61510 SODIUM 140 mmol/L 03/06 Unknown COMPREHENSIVE METABOLIC 72361 CREATININE 1.31 mg/dL 04/2015 Unknown COMPREHENSIVE METABOLIC 50475 CALCIUM 9.4 mg/dL 2015 Unknown COMPREHENSIVE METABOLIC 69737 POTASSIUM 4.8 mmol/L 03/06 Unknown COMPREHENSIVE METABOLIC 49735 Total Protein 6.6 g/dL Unknown COMPREHENSIVE METABOLIC 81302 Glucose 142 mg/dL 2015 Unknown COMPREHENSIVE METABOLIC 86294 Bicarbonate 29 mmol/L 04/2015 Unknown COMPREHENSIVE METABOLIC 28551 AGAP 8 mmol/L 2015 Unknown THYROID STIMULATING HORMONE 76357 TSH 2.288 uIU/mL 03/06/2016 Unknown LIPID GROUP 13577 Cholesterol 154 mg/dL 03/06/2016 Unkno wn LIPID GROUP 80177 Triglyceride 266 mg/dL 03/06/2016 Unkn own LIPID GROUP 46293 HDL CHOLESTEROL 38 mg/dL 03/06/2016 U nknown LIPID GROUP 44031 Chol/HDL Ratio 4.05 ratio 03/06/2016 U nknown LIPID GROUP 06907 NON-HDL Chol 116 mg/dL 03/06/2016 Unkn own LIPID GROUP 76364 LDL Cholesterol 63 mg/dL 03/06/2016 U nknown MEAN GLUC 3448707 Mean Glucose 128 mg/dL 08/31/2015 Unknow n COMPLETE BLOOD COUNT [id number] WBC 8.4 10e9/L 08/31/19 16 Unknown COMPLETE BLOOD COUNT [id number] RBC 4.12 10e12/L 2015 Unknown COMPLETE BLOOD COUNT 4680056 HEMOGLOBIN 12.8 g/dL 08/31/19 16 Unknown COMPLETE BLOOD COUNT 8386455 HEMATOCRIT 39.6 % 08/31/19 16 Unknown COMPLETE BLOOD COUNT 7041650 MCV 96.1 fL 6 Unknown COMPLETE BLOOD COUNT [id number] MCH 31.1 pg 6 Unknown COMPLETE BLOOD COUNT 8884033 MCHC 32.3 g/dL 6 Unknown COMPLETE BLOOD COUNT 9503016 PLATELET COUNT 184 10e9/L Unknown COMPLETE BLOOD COUNT 2713692 Mean Plt Volume 12.0 fL Unknown COMPLETE BLOOD COUNT 7298725 Neut Auto 59.8 % 6 Unknown COMPLETE BLOOD COUNT 9246728 Lymph Auto 27.9 % 08/31/19 16 Unknown COMPLETE BLOOD COUNT [id number] [place] Auto 9.1 % 6 Unknown COMPLETE BLOOD COUNT 0383717 RDW 13.6 % 6 Unknown COMPLETE BLOOD COUNT 7574579 Eos Auto 3.1 % 6 Unknown COMPLETE BLOOD COUNT 4780646 Baso Auto 0.1 % 6 Unknown COMPLETE BLOOD COUNT [id number] Neutrophil Abs 5.02 10e9/L Unknown COMPLETE BLOOD COUNT [id number] Lymphoctye Abs 2.34 10e9/L Unknown COMPLETE BLOOD COUNT [id number] Monocyte Abs 0.76 10e9/L 08/05 Unknown COMPLETE BLOOD COUNT [id number] Eosinophil Abs 0.26 10e9/L Unknown COMPLETE BLOOD COUNT [id number] RDW-SD 46.3 fL 6 Unknown COMPLETE BLOOD COUNT [id number] Basophil Abs 0.01 10e9/L 08/05 Unknown GLYCOSYLATED HEMOGLOBIN TEST 21433 Hgb A1c 89738-9 6.1 % 0 08/31/2015 Unknown GFR CALC [id number] GFR Non Afr Amr >60 mL/min 08/31/2015 Un known GFR CALC [id number] GFR Afr Amr >60 mL/min 08/31/2015 Unknow n FREE T4 61995 T4 Free 1.21 ng/dL 08/31/2015 Unknown THYROID STIMULATING HORMONE 54084 TSH 2.988 uIU/mL 08/31/2015 Unknown COMPREHENSIVE METABOLIC 57074 AST 16 U/L 2015 Unknown COMPREHENSIVE METABOLIC 58375 ALT 19 U/L 2015 Unknown COMPREHENSIVE METABOLIC 88358 BUN 17 mg/dL 2015 Unknown COMPREHENSIVE METABOLIC 80220 ALBUMIN 4.3 g/dL 2015 Unknown COMPREHENSIVE METABOLIC 30459 CHLORIDE 107 mmol/L 08/30 Unknown COMPREHENSIVE METABOLIC 82334 Bili Total 0.4 mg/dL 08/30 Unknown COMPREHENSIVE METABOLIC 70873 ALK PHOS 66 U/L 2015 Unknown COMPREHENSIVE METABOLIC 61076 SODIUM 140 mmol/L 08/30 Unknown COMPREHENSIVE METABOLIC 92357 CREATININE 1.07 mg/dL 08/05 Unknown COMPREHENSIVE METABOLIC 80128 CALCIUM 9.5 mg/dL 2015 Unknown COMPREHENSIVE METABOLIC 36852 POTASSIUM 4.5 mmol/L 08/30 Unknown COMPREHENSIVE METABOLIC 87819 Total Protein 6.7 g/dL Unknown COMPREHENSIVE METABOLIC 15730 Glucose 122 mg/dL 2015 Unknown COMPREHENSIVE METABOLIC 33724 Bicarbonate 26 mmol/L 08/05 Unknown COMPREHENSIVE METABOLIC 97448 AGAP 7 mmol/L 2015 Unknown LIPID GROUP 27780 Cholesterol 171 mg/dL 08/31/2015 Unkno wn LIPID GROUP 42081 Triglyceride 428 mg/dL 08/31/2015 Unkn own LIPID GROUP 08513 HDL CHOLESTEROL 35 mg/dL 08/31/2015 U nknown LIPID GROUP 01327 Chol/HDL Ratio 4.89 ratio 08/31/2015 U nknown LIPID GROUP 92767 NON-HDL Chol 136 mg/dL 08/31/2015 Unkn own LIPID GROUP 26518 LDL Cholesterol 50 mg/dL 08/31/2015 U nknown PSA EQUIMOLAR JERSON 39373 PSA Total 0.47 ng/mL 6 Unknown GFR CALC [id number] GFR AA >60 ML/MIN 01/12/2015 Unknown GFR CALC [id number] GFR NON-AA >60 ML/MIN 01/12/2015 Unknown COMPREHENSIVE METABOLIC 47668 AST 18 U/L 2014 Unknown COMPREHENSIVE METABOLIC 69341 ALT 19 IU/L 2014 Unknown COMPREHENSIVE METABOLIC 19136 BUN 19 MG/DL 2014 Unknown COMPREHENSIVE METABOLIC 82429 ALBUMIN 4.7 GM/DL 2014 Unknown COMPREHENSIVE METABOLIC 51998 CHLORIDE 104 MMOL/L 01/12 Unknown COMPREHENSIVE METABOLIC 11455 BILI TOT 0.8 MG/DL 2014 Unknown COMPREHENSIVE METABOLIC 37543 ALK PHOS 58 U/L 2014 Unknown COMPREHENSIVE METABOLIC 47877 SODIUM 139 MMOL/L 01/12 Unknown COMPREHENSIVE METABOLIC 05594 CREATININE 1.09 MG/DL 12/2014 Unknown COMPREHENSIVE METABOLIC 83151 CALCIUM 9.6 MG/DL 2014 Unknown COMPREHENSIVE METABOLIC 13242 POTASSIUM 4.4 MMOL/L 01/12 Unknown COMPREHENSIVE METABOLIC 78087 PROT TOT 6.7 GM/DL 2014 Unknown COMPREHENSIVE METABOLIC 70913 Glucose 109 MG/DL 2014 Unknown COMPREHENSIVE METABOLIC 68523 BICARB 27 MMOL/L 2014 Unknown COMPREHENSIVE METABOLIC 33408 ANION GAP 8 MEQ/L 2014 Unknown LIPID GROUP 57141 HDL TEST 36 MG/DL 01/12/2015 Unknown LIPID GROUP 99833 TRIG 220 MG/DL 01/12/2015 Unknown LIPID GROUP 99644 TEST LDL 58 MG/DL 01/12/2015 Unknown LIPID GROUP 43021 CHOL 138 MG/DL 01/12/2015 Unknown LIPID GROUP 35863 RCHOL/HDL 3.83 RATIO 01/12/2015 Unknow n LIPID GROUP 57955 NON-HDL CH 102 MG/DL 01/12/2015 Unknow n GLYCOSYLATED HEMOGLOBIN TEST 83277 A1C HPLC 06779-3 6.1 % 1 Unknown COMPLETE BLOOD COUNT 5327178 WBC 7.1 10e9/L 01/13/20 15 Unknown COMPLETE BLOOD COUNT [id number] RBC 4.38 10e12/L 2014 Unknown COMPLETE BLOOD COUNT 6906335 HGB 13.7 g/dL 5 Unknown COMPLETE BLOOD COUNT [id number] HCT DET 41.3 % 5 Unknown COMPLETE BLOOD COUNT 4862505 MCV 94.3 fL 5 Unknown COMPLETE BLOOD COUNT 9873712 MCH 31.3 pg 5 Unknown COMPLETE BLOOD COUNT 6180273 MCHC 33.2 g/dL 5 Unknown COMPLETE BLOOD COUNT [id number] PLT 174 10e9/L 01/13/20 15 Unknown COMPLETE BLOOD COUNT 0300047 MPV 11.8 fL 5 Unknown COMPLETE BLOOD COUNT 3444339 SAMIR % 61.3 % 5 Unknown COMPLETE BLOOD COUNT 9539639 LY % 28.3 % 5 Unknown COMPLETE BLOOD COUNT [id number] MON % 7.6 % 5 Unknown COMPLETE BLOOD COUNT 3142792 EOS % 2.7 % 5 Unknown COMPLETE BLOOD COUNT 3565915 BASO % 0.1 % 5 Unknown COMPLETE BLOOD COUNT 6260297 RDW 13.1 % 5 Unknown COMPLETE BLOOD COUNT [id number] ABS SAMIR 4.35 10e9/L 015 Unknown COMPLETE BLOOD COUNT 3169236 ABS LYMPH 2.01 10e9/L 015 Unknown COMPLETE BLOOD COUNT 1440963 ABS MONO 0.54 10e9/L 015 Unknown COMPLETE BLOOD COUNT [id number] ABS EOS 0.19 10e9/L 015 Unknown COMPLETE BLOOD COUNT 6461743 ABS BASO 0.01 10e9/L 015 Unknown COMPLETE BLOOD COUNT [id number] RDW-SD 43.9 fL 5 Unknown GLYCOSYLATED HEMOGLOBIN TEST 15349 A1C [facility] 62595-6 6.1 % 0 08/15/2014 Unknown COMPLETE BLOOD COUNT [id number] WBC 9.7 10e9/L 08/16/19 15 Unknown COMPLETE BLOOD COUNT 8339152 RBC 4.29 10e12/L 2014 Unknown COMPLETE BLOOD COUNT 7719599 HGB 13.3 g/dL 5 Unknown COMPLETE BLOOD COUNT 9543851 HCT DET 40.5 % 5 Unknown COMPLETE BLOOD COUNT 6220959 MCV 94.4 fL 5 Unknown COMPLETE BLOOD COUNT 6843281 MCH 31.0 pg 5 Unknown COMPLETE BLOOD COUNT 6964522 MCHC 32.8 g/dL 5 Unknown COMPLETE BLOOD COUNT 6861557 PLT 227 10e9/L 08/16/19 15 Unknown COMPLETE BLOOD COUNT 0716106 MPV 11.0 fL 5 Unknown COMPLETE BLOOD COUNT 0865221 SAMIR % 66.4 % 5 Unknown COMPLETE BLOOD COUNT 6195407 LY % 23.7 % 5 Unknown COMPLETE BLOOD COUNT 5990884 MON % 8.1 % 5 Unknown COMPLETE BLOOD COUNT 4199196 EOS % 1.6 % 5 Unknown COMPLETE BLOOD COUNT [id number] BASO % 0.2 % 5 Unknown COMPLETE BLOOD COUNT 3624596 RDW 13.4 % 5 Unknown COMPLETE BLOOD COUNT 7842740 ABS SAMIR 6.44 10e9/L 015 Unknown COMPLETE BLOOD COUNT 1827846 ABS LYMPH 2.30 10e9/L 015 Unknown COMPLETE BLOOD COUNT 8682127 ABS MONO 0.79 10e9/L 015 Unknown COMPLETE BLOOD COUNT 7146799 ABS EOS 0.16 10e9/L 015 Unknown COMPLETE BLOOD COUNT 6609418 ABS BASO 0.02 10e9/L 015 Unknown COMPLETE BLOOD COUNT [id number] RDW-SD 44.7 fL 5 Unknown COMPREHENSIVE METABOLIC 63850 AST 17 U/L 2014 Unknown COMPREHENSIVE METABOLIC 81561 ALT 23 IU/L 2014 Unknown COMPREHENSIVE METABOLIC 25663 BUN 16 MG/DL 2014 Unknown COMPREHENSIVE METABOLIC 37877 ALBUMIN 4.3 GM/DL 2014 Unknown COMPREHENSIVE METABOLIC 76197 CHLORIDE 107 MMOL/L 08/15 Unknown COMPREHENSIVE METABOLIC 75704 BILI TOT 0.4 MG/DL 2014 Unknown COMPREHENSIVE METABOLIC 91124 ALK PHOS 91 U/L 2014 Unknown COMPREHENSIVE METABOLIC 64269 SODIUM 139 MMOL/L 08/15 Unknown COMPREHENSIVE METABOLIC 62904 CREATININE 1.07 MG/DL 08/04 Unknown COMPREHENSIVE METABOLIC 71480 CALCIUM 9.6 MG/DL 2014 Unknown COMPREHENSIVE METABOLIC 99851 POTASSIUM 4.6 MMOL/L 08/15 Unknown COMPREHENSIVE METABOLIC 50798 PROT TOT 6.7 GM/DL 2014 Unknown COMPREHENSIVE METABOLIC 31742 Glucose 111 MG/DL 2014 Unknown COMPREHENSIVE METABOLIC 40824 BICARB 27 MMOL/L 2014 Unknown COMPREHENSIVE METABOLIC 45234 ANION GAP 5 MEQ/L 2014 Unknown GFR CALC 3753159 GFR AA >60 ML/MIN 08/15/2014 Unknown GFR CALC 4239597 GFR NON-AA >60 ML/MIN 08/15/2014 Unknown THYROID STIMULATING HORMONE 48061 TSH 1.598 uIU/ML 08/15/2014 Unknown LIPID GROUP 17663 HDL TEST 33 MG/DL 08/15/2014 Unknown LIPID GROUP 92322 TRIG 187 MG/DL 08/15/2014 Unknown LIPID GROUP 51523 TEST LDL 58 MG/DL 08/15/2014 Unknown LIPID GROUP 78691 CHOL 128 MG/DL 08/15/2014 Unknown LIPID GROUP 89247 RCHOL/HDL 3.88 RATIO 08/15/2014 Unknow n LIPID GROUP 79763 NON-HDL CH 95 MG/DL 08/15/2014 Unknow n PSA EQUIMOLAR JERSON 72403 PSA EQ 0.70 NG/ML 5 Unknown FREE T4 50174 FREE T4 1.32 NG/DL 08/15/2014 Unknown GFR CALC 8601025 GFR AA >60 ML/MIN 12/14/2013 Unknown GFR CALC 8038848 GFR NON-AA 58.0L ML/MIN 12/14/2013 Unkno wn COMPLETE BLOOD COUNT 5807929 WBC 8.7 10e9/L 12/15/19 14 Unknown COMPLETE BLOOD COUNT 9986940 RBC 4.32 10e12/L 2013 Unknown COMPLETE BLOOD COUNT 3492503 HGB 13.5 g/dL 4 Unknown COMPLETE BLOOD COUNT 0405603 HCT DET 40.6 % 4 Unknown COMPLETE BLOOD COUNT 2700096 MCV 94.0 fL 4 Unknown COMPLETE BLOOD COUNT 6337831 MCH 31.3 pg 4 Unknown COMPLETE BLOOD COUNT 5103396 MCHC 33.3 g/dL 4 Unknown COMPLETE BLOOD COUNT 7580872 PLT 205 10e9/L 12/15/19 14 Unknown COMPLETE BLOOD COUNT 5120717 MPV 11.7 fL 4 Unknown COMPLETE BLOOD COUNT 4618592 SAMIR % 62.5 % 4 Unknown COMPLETE BLOOD COUNT 5826456 LY % 26.9 % 4 Unknown COMPLETE BLOOD COUNT 3997010 MON % 8.8 % 4 Unknown COMPLETE BLOOD COUNT 9950857 EOS % 1.7 % 4 Unknown COMPLETE BLOOD COUNT 8890456 BASO % 0.1 % 4 Unknown COMPLETE BLOOD COUNT 3775972 RDW 13.4 % 4 Unknown COMPLETE BLOOD COUNT [id number] ABS SAMIR 5.44 10e9/L 014 Unknown COMPLETE BLOOD COUNT 1637727 ABS LYMPH 2.34 10e9/L 014 Unknown COMPLETE BLOOD COUNT 8538280 ABS MONO 0.77 10e9/L 014 Unknown COMPLETE BLOOD COUNT 4742453 ABS EOS 0.15 10e9/L 014 Unknown COMPLETE BLOOD COUNT 1428805 ABS BASO 0.01 10e9/L 014 Unknown COMPLETE BLOOD COUNT 9553918 RDW-SD 44.7 fL 4 Unknown COMPREHENSIVE METABOLIC 36141 AST 14 U/L 2013 Unknown COMPREHENSIVE METABOLIC 22768 ALT 12 IU/L 2013 Unknown COMPREHENSIVE METABOLIC 55458 BUN 24 MG/DL 2013 Unknown COMPREHENSIVE METABOLIC 27047 ALBUMIN 4.5 GM/DL 2013 Unknown COMPREHENSIVE METABOLIC 30270 CHLORIDE 104 MMOL/L 12/14 Unknown COMPREHENSIVE METABOLIC 05453 BILI TOT 0.6 MG/DL 2013 Unknown COMPREHENSIVE METABOLIC 32785 ALK PHOS 82 U/L 2013 Unknown COMPREHENSIVE METABOLIC 17778 SODIUM 135 MMOL/L 12/14 Unknown COMPREHENSIVE METABOLIC 46742 CREATININE 1.25 MG/DL 12/05 Unknown COMPREHENSIVE METABOLIC 57527 CALCIUM 9.8 MG/DL 2013 Unknown COMPREHENSIVE METABOLIC 38104 POTASSIUM 4.7 MMOL/L 12/14 Unknown COMPREHENSIVE METABOLIC 53249 PROT TOT 6.7 GM/DL 2013 Unknown COMPREHENSIVE METABOLIC 67024 Glucose 126 MG/DL 2013 Unknown COMPREHENSIVE METABOLIC 04650 BICARB 27 MMOL/L 2013 Unknown COMPREHENSIVE METABOLIC 42938 ANION GAP 4 MEQ/L 2013 Unknown THYROID STIMULATING HORMONE 96669 TSH 3.281 uIU/ML 12/14/2013 Unknown FREE T4 01881 FREE T4 1.28 NG/DL 12/14/2013 Unknown LIPID GROUP 24193 HDL TEST 36 MG/DL 12/14/2013 Unknown LIPID GROUP 63670 TRIG 253 MG/DL 12/14/2013 Unknown LIPID GROUP 24250 TEST LDL 56 MG/DL 12/14/2013 Unknown LIPID GROUP 24438 CHOL 143 MG/DL 12/14/2013 Unknown LIPID GROUP 50765 RCHOL/HDL 3.97 RATIO 12/14/2013 Unknow n LIPID GROUP 80952 NON-HDL CH 107 MG/DL 12/14/2013 Unknow n GLYCOSYLATED HEMOGLOBIN TEST 02048 A1C HPLC 97804-4 6.1 % 0 12/14/2013 Unknown GLYCOSYLATED HEMOGLOBIN TEST 14661 A1C HPLC 67816-9 6.0 % 0 06/08/2013 Unknown LIPID GROUP 82912 HDL TEST 39 MG/DL 06/08/2013 Unknown LIPID GROUP 78988 TRIG 166 MG/DL 06/08/2013 Unknown LIPID GROUP 17641 TEST LDL 86 MG/DL 06/08/2013 Unknown LIPID GROUP 32631 CHOL 158 MG/DL 06/08/2013 Unknown LIPID GROUP 79527 RCHOL/HDL 4.05 RATIO 06/08/2013 Unknow n COMPREHENSIVE METABOLIC 13806 AST 17 U/L 2013 Unknown COMPREHENSIVE METABOLIC 11704 ALT 25 IU/L 2013 Unknown COMPREHENSIVE METABOLIC 62856 BUN 18 MG/DL 2013 Unknown COMPREHENSIVE METABOLIC 80779 ALBUMIN 4.5 GM/DL 2013 Unknown COMPREHENSIVE METABOLIC 65881 CHLORIDE 103 MMOL/L 06/08 Unknown COMPREHENSIVE METABOLIC 81968 BILI TOT 0.4 MG/DL 2013 Unknown COMPREHENSIVE METABOLIC 77514 ALK PHOS 72 U/L 2013 Unknown COMPREHENSIVE METABOLIC 15795 SODIUM 137 MMOL/L 06/08 Unknown COMPREHENSIVE METABOLIC 59951 CREATININE 1.07 MG/DL 08/2013 Unknown COMPREHENSIVE METABOLIC 82186 CALCIUM 9.7 MG/DL 2013 Unknown COMPREHENSIVE METABOLIC 43971 POTASSIUM 4.7 MMOL/L 06/08 Unknown COMPREHENSIVE METABOLIC 65684 PROT TOT 6.6 GM/DL 2013 Unknown COMPREHENSIVE METABOLIC 73329 Glucose 130 MG/DL 2013 Unknown COMPREHENSIVE METABOLIC 51513 BICARB 25 MMOL/L 2013 Unknown COMPREHENSIVE METABOLIC 99926 ANION GAP 9 MEQ/L 2013 Unknown FREE T4 13309 FREE T4 1.29 NG/DL 06/08/2013 Unknown THYROID STIMULATING HORMONE 11133 TSH 2.445 uIU/ML 06/08/2013 Unknown GFR CALC 0685046 GFR AA >60 ML/MIN 06/08/2013 Unknown GFR CALC 9368088 GFR NON-AA >60 ML/MIN 06/08/2013 Unknown COMPLETE BLOOD COUNT 8044771 WBC 8.2 10e9/L 06/09/19 14 Unknown COMPLETE BLOOD COUNT 1220917 RBC 4.63 10e12/L 2013 Unknown COMPLETE BLOOD COUNT 5600406 HGB 14.1 g/dL 4 Unknown COMPLETE BLOOD COUNT 8335693 HCT DET 42.6 % 4 Unknown COMPLETE BLOOD COUNT 5259708 MCV 92.0 fL 4 Unknown COMPLETE BLOOD COUNT 5354263 MCH 30.5 pg 4 Unknown COMPLETE BLOOD COUNT 3772653 MCHC 33.1 g/dL 4 Unknown COMPLETE BLOOD COUNT 1437570 PLT 222 10e9/L 06/09/19 14 Unknown COMPLETE BLOOD COUNT 4844191 MPV 10.8 fL 4 Unknown COMPLETE BLOOD COUNT 4945728 SAMIR % 60.8 % 4 Unknown COMPLETE BLOOD COUNT 5407335 LY % 29.2 % 4 Unknown COMPLETE BLOOD COUNT 2523469 MON % 7.6 % 4 Unknown COMPLETE BLOOD COUNT 7089138 EOS % 2.3 % 4 Unknown COMPLETE BLOOD COUNT 0414395 BASO % 0.1 % 4 Unknown COMPLETE BLOOD COUNT 5667510 RDW 13.7 % 4 Unknown COMPLETE BLOOD COUNT 4698830 ABS SAMIR 4.99 10e9/L 014 Unknown COMPLETE BLOOD COUNT 0429168 ABS LYMPH 2.39 10e9/L 014 Unknown COMPLETE BLOOD COUNT 8352564 ABS MONO 0.62 10e9/L 014 Unknown COMPLETE BLOOD COUNT 4061911 ABS EOS 0.19 10e9/L 014 Unknown COMPLETE BLOOD COUNT 0116245 ABS BASO 0.01 10e9/L 014 Unknown COMPLETE BLOOD COUNT 3906432 RDW-SD 45.2 fL 4 Unknown LIPID GROUP 69638 HDL TEST 40 MG/DL 11/11/2012 Unknown LIPID GROUP 88625 TRIG 153 MG/DL 11/11/2012 Unknown LIPID GROUP 42817 TEST LDL 71 MG/DL 11/11/2012 Unknown LIPID GROUP 78814 CHOL 142 MG/DL 11/11/2012 Unknown LIPID GROUP 36256 RCHOL/HDL 3.55 RATIO 11/11/2012 Unknow n GFR CALC 0673062 GFR AA >60 ML/MIN 11/11/2012 Unknown GFR CALC 1324690 GFR NON-AA 57.0L ML/MIN 11/11/2012 Unkno wn HEMOGLOBIN A1C (GLYCOSYLATED) 2327560 A1C [facility] 18619-2 5.9 % 11/11/2012 Unknown THYROID STIMULATING HORMONE 60791 TSH 2.439 uIU/ML 11/11/2012 Unknown COMPLETE BLOOD COUNT 6048072 WBC 8.5 10e9/L 11/12/19 13 Unknown COMPLETE BLOOD COUNT 1865512 RBC 4.42 10e12/L 2012 Unknown COMPLETE BLOOD COUNT 6030944 HGB 13.7 g/dL 3 Unknown COMPLETE BLOOD COUNT 5108200 HCT DET 41.3 % 3 Unknown COMPLETE BLOOD COUNT 1198839 MCV 93.4 fL 3 Unknown COMPLETE BLOOD COUNT 1963148 MCH 31.0 pg 3 Unknown COMPLETE BLOOD COUNT 5985830 MCHC 33.2 g/dL 3 Unknown COMPLETE BLOOD COUNT 5432007 PLT 220 10e9/L 11/12/19 13 Unknown COMPLETE BLOOD COUNT 9452071 MPV 10.8 fL 3 Unknown COMPLETE BLOOD COUNT 3006132 SAMIR % 60.4 % 3 Unknown COMPLETE BLOOD COUNT 5393663 LY % 28.7 % 3 Unknown COMPLETE BLOOD COUNT 2657462 MON % 8.0 % 3 Unknown COMPLETE BLOOD COUNT 3544292 EOS % 2.8 % 3 Unknown COMPLETE BLOOD COUNT 3239972 BASO % 0.1 % 3 Unknown COMPLETE BLOOD COUNT 3333225 RDW 13.7 % 3 Unknown COMPLETE BLOOD COUNT 3524668 ABS SAMIR 5.13 10e9/L 013 Unknown COMPLETE BLOOD COUNT 7558962 ABS LYMPH 2.44 10e9/L 013 Unknown COMPLETE BLOOD COUNT 6656760 ABS MONO 0.68 10e9/L 013 Unknown COMPLETE BLOOD COUNT 8560643 ABS EOS 0.24 10e9/L 013 Unknown COMPLETE BLOOD COUNT 5145671 ABS BASO 0.01 10e9/L 013 Unknown COMPLETE BLOOD COUNT 7662640 RDW-SD 45.6 fL 3 Unknown COMPREHENSIVE METABOLIC 00205 AST 19 U/L 2012 Unknown COMPREHENSIVE METABOLIC 93503 ALT 28 IU/L 2012 Unknown COMPREHENSIVE METABOLIC 14288 BUN 31 MG/DL 2012 Unknown COMPREHENSIVE METABOLIC 44733 ALBUMIN 4.7 GM/DL 2012 Unknown COMPREHENSIVE METABOLIC 93655 CHLORIDE 106 MMOL/L 11/11 Unknown COMPREHENSIVE METABOLIC 00474 BILI TOT 0.5 MG/DL 2012 Unknown COMPREHENSIVE METABOLIC 98809 ALK PHOS 64 U/L 2012 Unknown COMPREHENSIVE METABOLIC 88959 SODIUM 136 MMOL/L 11/11 Unknown COMPREHENSIVE METABOLIC 73932 CREATININE 1.27 MG/DL 11/2012 Unknown COMPREHENSIVE METABOLIC 52824 CALCIUM 9.4 MG/DL 2012 Unknown COMPREHENSIVE METABOLIC 39637 POTASSIUM 4.9 MMOL/L 11/11 Unknown COMPREHENSIVE METABOLIC 40957 PROT TOT 6.7 GM/DL 2012 Unknown COMPREHENSIVE METABOLIC 55783 Glucose 108 MG/DL 2012 Unknown COMPREHENSIVE METABOLIC 19660 BICARB 21 MMOL/L 2012 Unknown COMPREHENSIVE METABOLIC 98319 ANION GAP 9 MEQ/L 2012 Unknown THYROID STIMULATING HORMONE 63873 TSH 2.572 uIU/ML 05/04/2012 Unknown COMPLETE BLOOD COUNT 6894849 WBC 9.3 10e9/L 05/04/19 13 Unknown COMPLETE BLOOD COUNT 4112842 RBC 4.43 10e12/L 2012 Unknown COMPLETE BLOOD COUNT 3646464 HGB 14.2 g/dL 3 Unknown COMPLETE BLOOD COUNT 7429264 HCT DET 41.1 % 3 Unknown COMPLETE BLOOD COUNT 4868772 MCV 92.8 fL 3 Unknown COMPLETE BLOOD COUNT 6173711 MCH 32.1 pg 3 Unknown COMPLETE BLOOD COUNT 3508614 MCHC 34.5 g/dL 3 Unknown COMPLETE BLOOD COUNT 6678447 PLT 193 10e9/L 05/04/19 13 Unknown COMPLETE BLOOD COUNT 9162976 MPV 10.8 fL 3 Unknown COMPLETE BLOOD COUNT 0333214 SAMIR % 63.0 % 3 Unknown COMPLETE BLOOD COUNT 4460194 LY % 25.3 % 3 Unknown COMPLETE BLOOD COUNT 6134867 MON % 9.1 % 3 Unknown COMPLETE BLOOD COUNT 3690222 EOS % 2.5 % 3 Unknown COMPLETE BLOOD COUNT 3844645 BASO % 0.1 % 3 Unknown COMPLETE BLOOD COUNT 4865777 RDW 12.6 % 3 Unknown COMPLETE BLOOD COUNT 9616610 ABS SAMIR 5.86 10e9/L 013 Unknown COMPLETE BLOOD COUNT 0218821 ABS LYMPH 2.35 10e9/L 013 Unknown COMPLETE BLOOD COUNT 1325449 ABS MONO 0.85 10e9/L 013 Unknown COMPLETE BLOOD COUNT 3365750 ABS EOS 0.23 10e9/L 013 Unknown COMPLETE BLOOD COUNT 1944767 ABS BASO 0.01 10e9/L 013 Unknown COMPLETE BLOOD COUNT 5858194 RDW-SD 41.2 fL 3 Unknown LIPID GROUP 00617 HDL TEST 35 MG/DL 05/04/2012 Unknown LIPID GROUP 76338 TRIG 236 MG/DL 05/04/2012 Unknown LIPID GROUP 14884 TEST LDL 64 MG/DL 05/04/2012 Unknown LIPID GROUP 71866 CHOL 146 MG/DL 05/04/2012 Unknown LIPID GROUP 56450 RCHOL/HDL 4.17 RATIO 05/04/2012 Unknow n COMPREHENSIVE METABOLIC 63501 AST 23 U/L 2012 Unknown COMPREHENSIVE METABOLIC 78586 ALT 33 IU/L 2012 Unknown COMPREHENSIVE METABOLIC 54523 BUN 16 MG/DL 2012 Unknown COMPREHENSIVE METABOLIC 17871 ALBUMIN 4.8 GM/DL 2012 Unknown COMPREHENSIVE METABOLIC 61915 CHLORIDE 104 MMOL/L 05/04 Unknown COMPREHENSIVE METABOLIC 47978 BILI TOT 0.5 MG/DL 2012 Unknown COMPREHENSIVE METABOLIC 37581 ALK PHOS 70 U/L 2012 Unknown COMPREHENSIVE METABOLIC 43086 SODIUM 138 MMOL/L 05/04 Unknown COMPREHENSIVE METABOLIC 55938 CREATININE 1.08 MG/DL 04/07 Unknown COMPREHENSIVE METABOLIC 27970 CALCIUM 9.7 MG/DL 2012 Unknown COMPREHENSIVE METABOLIC 20057 POTASSIUM 4.4 MMOL/L 05/04 Unknown COMPREHENSIVE METABOLIC 56511 PROT TOT 6.8 GM/DL 2012 Unknown COMPREHENSIVE METABOLIC 63723 Glucose 114 MG/DL 2012 Unknown COMPREHENSIVE METABOLIC 94931 BICARB 27 MMOL/L 2012 Unknown COMPREHENSIVE METABOLIC 17468 ANION GAP 7 MEQ/L 2012 Unknown FREE T4 58288 FREE T4 1.11 NG/DL 05/04/2012 Unknown GFR CALC 5592426 GFR AA >60 ML/MIN 05/04/2012 Unknown GFR CALC 0074374 GFR NON-AA >60 ML/MIN 05/04/2012 Unknown GLYCOSYLATED HEMOGLOBIN TEST 36800 A1C HPLC 44210-1 5.8 % 0 10/29/2011 Unknown COMPREHENSIVE METABOLIC 90961 AST 17 U/L 2011 Unknown COMPREHENSIVE METABOLIC 46396 ALT 21 IU/L 2011 Unknown COMPREHENSIVE METABOLIC 86431 BUN 17 MG/DL 2011 Unknown COMPREHENSIVE METABOLIC 05768 ALBUMIN 4.8 GM/DL 2011 Unknown COMPREHENSIVE METABOLIC 14176 CHLORIDE 106 MMOL/L 10/28 Unknown COMPREHENSIVE METABOLIC 75491 BILI TOT 0.6 MG/DL 2011 Unknown COMPREHENSIVE METABOLIC 46070 ALK PHOS 57 U/L 2011 Unknown COMPREHENSIVE METABOLIC 15161 SODIUM 139 MMOL/L 10/28 Unknown COMPREHENSIVE METABOLIC 17675 CREATININE 1.08 MG/DL 10/05 Unknown COMPREHENSIVE METABOLIC 87434 CALCIUM 9.6 MG/DL 2011 Unknown COMPREHENSIVE METABOLIC 04048 POTASSIUM 4.4 MMOL/L 10/28 Unknown COMPREHENSIVE METABOLIC 30173 PROT TOT 6.9 GM/DL 2011 Unknown COMPREHENSIVE METABOLIC 70885 Glucose 104 MG/DL 2011 Unknown COMPREHENSIVE METABOLIC 09612 BICARB 25 MMOL/L 2011 Unknown COMPREHENSIVE METABOLIC 10393 ANION GAP 8 MEQ/L 2011 Unknown LIPID GROUP 15763 HDL TEST 39 MG/DL 10/29/2011 Unknown LIPID GROUP 47839 TRIG 176 MG/DL 10/29/2011 Unknown LIPID GROUP 48701 TEST LDL 70 MG/DL 10/29/2011 Unknown LIPID GROUP 56099 CHOL 144 MG/DL 10/29/2011 Unknown LIPID GROUP 28053 RCHOL/HDL 3.69 RATIO 10/29/2011 Unknow n GFR CALC 6031344 GFR AA >60 ML/MIN 10/29/2011 Unknown GFR CALC 6822247 GFR NON-AA >60 ML/MIN 10/29/2011 Unknown GFR CALC 3292589 GFR AA >60 ML/MIN 03/14/2011 Unknown GFR CALC 4764735 GFR NON-AA >60 ML/MIN 03/14/2011 Unknown GLYCOSYLATED HEMOGLOBIN TEST 10368 A1C HPLC 54892-8 5.7 % 1 05/15/2010 Unknown COMPREHENSIVE METABOLIC 32725 AST 18 U/L 2010 Unknown COMPREHENSIVE METABOLIC 10809 ALT 25 IU/L 2010 Unknown COMPREHENSIVE METABOLIC 59801 BUN 15 MG/DL 2010 Unknown COMPREHENSIVE METABOLIC 36940 ALBUMIN 4.6 GM/DL 2010 Unknown COMPREHENSIVE METABOLIC 54467 CHLORIDE 107 MMOL/L 03/14 Unknown COMPREHENSIVE METABOLIC 75955 BILI TOT 0.6 MG/DL 2010 Unknown COMPREHENSIVE METABOLIC 24588 ALK PHOS 54 U/L 2010 Unknown COMPREHENSIVE METABOLIC 84132 SODIUM 140 MMOL/L 03/14 Unknown COMPREHENSIVE METABOLIC 18191 CREATININE 1.02 MG/DL 12/2010 Unknown COMPREHENSIVE METABOLIC 66734 CALCIUM 9.4 MG/DL 2010 Unknown COMPREHENSIVE METABOLIC 51193 POTASSIUM 4.6 MMOL/L 03/14 Unknown COMPREHENSIVE METABOLIC 29968 PROT TOT 7.0 GM/DL 2010 Unknown COMPREHENSIVE METABOLIC 72926 Glucose 107 MG/DL 2010 Unknown COMPREHENSIVE METABOLIC 71454 BICARB 28 MMOL/L 2010 Unknown COMPREHENSIVE METABOLIC 42969 ANION GAP 5 MEQ/L 2010 Unknown LIPID GROUP 61575 HDL TEST 39 MG/DL 03/14/2011 Unknown LIPID GROUP 00521 TRIG 157 MG/DL 03/14/2011 Unknown LIPID GROUP 20840 TEST LDL 66 MG/DL 03/14/2011 Unknown LIPID GROUP 12368 CHOL 136 MG/DL 03/14/2011 Unknown LIPID GROUP 92281 RCHOL/HDL 3.49 RATIO 03/14/2011 Unknow n GFR CALC 4802337 GFR AA >60 ML/MIN 11/11/2010 Unknown GFR CALC 4122065 GFR NON-AA >60 ML/MIN 11/11/2010 Unknown LIPID GROUP 89520 HDL TEST 39 MG/DL 11/11/2010 Unknown LIPID GROUP 05957 TRIG 212 MG/DL 11/11/2010 Unknown LIPID GROUP 94228 TEST LDL 67 MG/DL 11/11/2010 Unknown LIPID GROUP 13472 CHOL 148 MG/DL 11/11/2010 Unknown LIPID GROUP 43121 RCHOL/HDL 3.79 RATIO 11/11/2010 Unknow n COMPREHENSIVE METABOLIC 99580 AST 17 U/L 2010 Unknown COMPREHENSIVE METABOLIC 39124 ALT 21 IU/L 2010 Unknown COMPREHENSIVE METABOLIC 83327 BUN 16 MG/DL 2010 Unknown COMPREHENSIVE METABOLIC 87332 ALBUMIN 4.6 GM/DL 2010 Unknown COMPREHENSIVE METABOLIC 64376 CHLORIDE 106 MMOL/L 11/11 Unknown COMPREHENSIVE METABOLIC 94427 BILI TOT 0.5 MG/DL 2010 Unknown COMPREHENSIVE METABOLIC 52250 ALK PHOS 61 U/L 2010 Unknown COMPREHENSIVE METABOLIC 79236 SODIUM 139 MMOL/L 11/11 Unknown COMPREHENSIVE METABOLIC 20721 CREATININE 1.00 MG/DL 11/2010 Unknown COMPREHENSIVE METABOLIC 61632 CALCIUM 9.5 MG/DL 2010 Unknown COMPREHENSIVE METABOLIC 45728 POTASSIUM 4.5 MMOL/L 11/11 Unknown COMPREHENSIVE METABOLIC 01907 PROT TOT 6.9 GM/DL 2010 Unknown COMPREHENSIVE METABOLIC 35678 Glucose 111 MG/DL 2010 Unknown COMPREHENSIVE METABOLIC 68894 BICARB 26 MMOL/L 2010 Unknown COMPREHENSIVE METABOLIC 83851 ANION GAP 7 MEQ/L 2010 Unknown HEMOGLOBIN A1C (GLYCOSYLATED) 50412 A1C HPLC 09048-2 5.6 % 07/24/2010 Unknown GFR CALC 3848968 GFR AA >60 ML/MIN 07/23/2010 Unknown GFR CALC 4497668 GFR NON-AA >60 ML/MIN 07/23/2010 Unknown COMPREHENSIVE METABOLIC 01017 AST 19 U/L 2010 Unknown COMPREHENSIVE METABOLIC 23214 ALT 33 IU/L 2010 Unknown COMPREHENSIVE METABOLIC 51588 BUN 14 MG/DL 2010 Unknown COMPREHENSIVE METABOLIC 90673 ALBUMIN 4.7 GM/DL 2010 Unknown COMPREHENSIVE METABOLIC 33570 CHLORIDE 107 MMOL/L 07/23 Unknown COMPREHENSIVE METABOLIC 56846 BILI TOT 0.4 MG/DL 2010 Unknown COMPREHENSIVE METABOLIC 27939 ALK PHOS 80 U/L 2010 Unknown COMPREHENSIVE METABOLIC 51470 SODIUM 141 MMOL/L 07/23 Unknown COMPREHENSIVE METABOLIC 74797 CREATININE 0.97 MG/DL 07/05 Unknown COMPREHENSIVE METABOLIC 70453 CALCIUM 9.5 MG/DL 2010 Unknown COMPREHENSIVE METABOLIC 36025 POTASSIUM 4.1 MMOL/L 07/23 Unknown COMPREHENSIVE METABOLIC 12804 PROT TOT 6.8 GM/DL 2010 Unknown COMPREHENSIVE METABOLIC 95179 Glucose 120 MG/DL 2010 Unknown COMPREHENSIVE METABOLIC 38096 BICARB 26 MMOL/L 2010 Unknown COMPREHENSIVE METABOLIC 04064 ANION GAP 8 MEQ/L 2010 Unknown LIPID GROUP 82334 HDL TEST 41 MG/DL 07/23/2010 Unknown LIPID GROUP 12967 TRIG 175 MG/DL 07/23/2010 Unknown LIPID GROUP 28046 TEST LDL 72 MG/DL 07/23/2010 Unknown LIPID GROUP 46004 CHOL 148 MG/DL 07/23/2010 Unknown LIPID GROUP 91852 RCHOL/HDL 3.61 RATIO 07/23/2010 Unknow n PSA FREE AND TOTAL 58761|08699 % FREE PSA FOOTNOTE % 011 Unknown PSA FREE AND TOTAL 48785|32916 XPSA TOTAL 0.83 NG/ML 011 Unknown PSA FREE AND TOTAL 52145|22172 XPSA FREE 0.13 NG/ML 04/26/19 11 Unknown VITAMIN D TOTAL (25 HYDROXY) 83965 VIT D TOTL 26 NG/ML 04/22/2010 Unknown TESTOSTERONE TOTAL 39319 TESTOS TO 387 NG/DL 04/19/2010 Unknown GFR CALC [id number] GFR AA >60 ML/MIN 04/19/2010 Unknown GFR CALC 2398377 GFR NON-AA >60 ML/MIN 04/19/2010 Unknown COMPLETE BLOOD COUNT 22539 WBC 7.0 10e9/L 04/19/19 11 Unknown COMPLETE BLOOD COUNT 38930 RBC 5.07 10e12/L 2010 Unknown COMPLETE BLOOD COUNT 88291 HGB 15.6 g/dL 1 Unknown COMPLETE BLOOD COUNT 40007 HCT DET 46.2 % 1 Unknown COMPLETE BLOOD COUNT 63969 MCV 91.1 fL 1 Unknown COMPLETE BLOOD COUNT 28751 MCH 30.8 pg 1 Unknown COMPLETE BLOOD COUNT 78695 MCHC 33.8 g/dL 1 Unknown COMPLETE BLOOD COUNT 59842 PLT 205 10e9/L 04/19/19 11 Unknown COMPLETE BLOOD COUNT 59859 MPV 11.1 fL 1 Unknown COMPLETE BLOOD COUNT 86334 SAMIR % 62.4 % 1 Unknown COMPLETE BLOOD COUNT 13524 LY % 28.5 % 1 Unknown COMPLETE BLOOD COUNT 57982 MON % 6.9 % 1 Unknown COMPLETE BLOOD COUNT 87448 EOS % 2.1 % 1 Unknown COMPLETE BLOOD COUNT 64144 BASO % 0.1 % 1 Unknown COMPLETE BLOOD COUNT 43355 RDW 13.4 % 1 Unknown COMPLETE BLOOD COUNT 03202 ABS SAMIR 4.37 10e9/L 011 Unknown COMPLETE BLOOD COUNT 99908 ABS LYMPH 2.00 10e9/L 011 Unknown COMPLETE BLOOD COUNT 61266 ABS MONO 0.48 10e9/L 011 Unknown COMPLETE BLOOD COUNT 09435 ABS EOS 0.15 10e9/L 011 Unknown COMPLETE BLOOD COUNT 23696 ABS BASO 0.01 10e9/L 011 Unknown COMPLETE BLOOD COUNT 04567 RDW-SD 43.8 fL 1 Unknown LIPID GROUP 64405 HDL TEST 39 MG/DL 04/19/2010 Unknown LIPID GROUP 11965 TRIG 244 MG/DL 04/19/2010 Unknown LIPID GROUP 33495 TEST LDL 168 MG/DL 04/19/2010 Unknown LIPID GROUP 90119 CHOL 256 MG/DL 04/19/2010 Unknown LIPID GROUP 34782 RCHOL/HDL 6.56 RATIO 04/19/2010 Unknow n COMPREHENSIVE METABOLIC 77024 AST 28 U/L 2010 Unknown COMPREHENSIVE METABOLIC 03250 ALT 46 IU/L 2010 Unknown COMPREHENSIVE METABOLIC 98406 BUN 14 MG/DL 2010 Unknown COMPREHENSIVE METABOLIC 75491 ALBUMIN 4.9 GM/DL 2010 Unknown COMPREHENSIVE METABOLIC 87355 CHLORIDE 104 MMOL/L 04/19 Unknown COMPREHENSIVE METABOLIC 20737 BILI TOT 0.8 MG/DL 2010 Unknown COMPREHENSIVE METABOLIC 26027 ALK PHOS 71 U/L 2010 Unknown COMPREHENSIVE METABOLIC 15779 SODIUM 139 MMOL/L 04/19 Unknown COMPREHENSIVE METABOLIC 89803 CREATININE 1.06 MG/DL 04/06 Unknown COMPREHENSIVE METABOLIC 48230 CALCIUM 9.9 MG/DL 2010 Unknown COMPREHENSIVE METABOLIC 29678 POTASSIUM 4.3 MMOL/L 04/19 Unknown COMPREHENSIVE METABOLIC 02764 PROT TOT 7.2 GM/DL 2010 Unknown COMPREHENSIVE METABOLIC 60839 Glucose 99 MG/DL 2010 Unknown COMPREHENSIVE METABOLIC 06433 BICARB 28 MMOL/L 2010 Unknown COMPREHENSIVE METABOLIC 61164 ANION GAP 7 MEQ/L 2010 Unknown FREE T4 [id number] FREE T4 1.26 NG/DL 04/19/2010 Unknown Procedures Procedure Codes Date ROUTINE VENIPUNCTURE CPT-4: 51145 08/24/2019 COMPREHEN METABOLIC PANEL CPT-4: 17900 08/24/2019 A1C HPLC CPT-4: 73334 08/24/2019 ROUTINE VENIPUNCTURE CPT-4: 90798 05/24/2019 COMPREHEN METABOLIC PANEL CPT-4: 59024 05/24/2019 A1C HPLC CPT-4: 07394 05/24/2019 FLU VACC PRSV FREE INC ANTIG 65 AND OLDER CPT-4: 53114 01/26/2019 FLU VACC PRSV FREE INC ANTIG 65 AND OLDER CPT-4: 49202 01/26/2019 ADMIN INFLUENZA VIRUS VAC CPT-4: G0008 01/26/2019 ROUTINE VENIPUNCTURE CPT-4: 22668 01/26/2019 COMPREHEN METABOLIC PANEL CPT-4: 59171 01/26/2019 COMPLETE CBC W/AUTO DIFF WBC CPT-4: 64417 01/26/2019 LIPID PANEL CPT-4: 47631 01/26/2019 A1C HPLC CPT-4: 64080 01/26/2019 ROUTINE VENIPUNCTURE CPT-4: 55398 09/30/2018 METABOLIC PANEL TOTAL CA CPT-4: 53716 09/30/2018 URINALYSIS NONAUTO W/O SCOPE CPT-4: 08414 08/19/2018 URINE CULTURE/ COLONY COUNT CPT-4: 12348 08/19/2018 MICROALBUMIN QUANTITATIVE CPT-4: 63502 08/19/2018 ROUTINE VENIPUNCTURE CPT-4: 97851 08/16/2018 ASSAY THYROID STIM HORMONE CPT-4: 35278 08/16/2018 COMPREHEN METABOLIC PANEL CPT-4: 36732 08/16/2018 COMPLETE CBC W/AUTO DIFF WBC CPT-4: 15410 08/16/2018 LIPID PANEL CPT-4: 46732 08/16/2018 A1C HPLC CPT-4: 47825 08/16/2018 LIPID PANEL CPT-4: 40059 05/05/2018 COMPREHEN METABOLIC PANEL CPT-4: 18486 05/05/2018 ROUTINE VENIPUNCTURE CPT-4: 46583 05/05/2018 A1C HPLC CPT-4: 06582 05/05/2018 COMPLETE CBC W/AUTO DIFF WBC CPT-4: 41844 05/05/2018 ASSAY THYROID STIM HORMONE CPT-4: 20908 05/05/2018 MICROALBUMIN QUANTITATIVE CPT-4: 19910 01/19/2018 PRESCRIP TRANSMIT VIA ERX SY CPT-4: G8553 01/19/2018 ROUTINE VENIPUNCTURE CPT-4: 40722 01/13/2018 COMPREHEN METABOLIC PANEL CPT-4: 74640 01/13/2018 A1C HPLC CPT-4: 55278 01/13/2018 LIPID PANEL CPT-4: 66868 01/13/2018 ASSAY OF PSA TOTAL CPT-4: 93228 01/13/2018 ASSAY THYROID STIM HORMONE CPT-4: 30684 01/13/2018 ROUTINE VENIPUNCTURE CPT-4: 70301 10/06/2017 COMPREHEN METABOLIC PANEL CPT-4: 39243 10/06/2017 COMPLETE CBC W/AUTO DIFF WBC CPT-4: 89333 10/06/2017 LIPID PANEL CPT-4: 12514 10/06/2017 A1C HPLC CPT-4: 63403 10/06/2017 VITAMIN B-12 CPT-4: 45923 10/06/2017 DESTRUCT PREMALG LESION (Cryosurgery) CPT-4: 38611 DESTRUCT PREMALG LES 2-14 CPT-4: 89316 04/23/2017 PRESCRIP TRANSMIT VIA ERX SY CPT-4: G8553 03/11/2017 ROUTINE VENIPUNCTURE CPT-4: 66416 03/05/2017 ASSAY OF FREE THYROXINE CPT-4: 21200 03/05/2017 ASSAY THYROID STIM HORMONE CPT-4: 42698 03/05/2017 COMPREHEN METABOLIC PANEL CPT-4: 06105 03/05/2017 COMPLETE CBC W/AUTO DIFF WBC CPT-4: 62242 03/05/2017 LIPID PANEL CPT-4: 88619 03/05/2017 A1C HPLC CPT-4: 15545 03/05/2017 ROUTINE VENIPUNCTURE CPT-4: 50392 06/16/2016 ASSAY OF FREE THYROXINE CPT-4: 89511 06/16/2016 ASSAY THYROID STIM HORMONE CPT-4: 68248 06/16/2016 COMPREHEN METABOLIC PANEL CPT-4: 71931 06/16/2016 COMPLETE CBC W/AUTO DIFF WBC CPT-4: 74251 06/16/2016 LIPID PANEL CPT-4: 40336 06/16/2016 A1C HPLC CPT-4: 05886 06/16/2016 ROUTINE VENIPUNCTURE CPT-4: 81409 03/06/2016 ASSAY OF FREE THYROXINE CPT-4: 40543 03/06/2016 ASSAY THYROID STIM HORMONE CPT-4: 61656 03/06/2016 COMPREHEN METABOLIC PANEL CPT-4: 08860 03/06/2016 COMPLETE CBC W/AUTO DIFF WBC CPT-4: 19628 03/06/2016 LIPID PANEL CPT-4: 80361 03/06/2016 A1C HPLC CPT-4: 68530 03/06/2016 PRESCRIP TRANSMIT VIA ERX SY CPT-4: G8553 09/10/2015 PNEUMOCOCCAL VACC 23 ROSANNE IM CPT-4: 33758 09/06/2015 ADMIN PNEUMOCOCCAL VACCINE CPT-4: G0009 09/06/2015 ROUTINE VENIPUNCTURE CPT-4: 86942 08/31/2015 COMPREHEN METABOLIC PANEL CPT-4: 44207 08/31/2015 COMPLETE CBC W/AUTO DIFF WBC CPT-4: 63942 08/31/2015 LIPID PANEL CPT-4: 93101 08/31/2015 ASSAY OF PSA TOTAL CPT-4: 32052 08/31/2015 A1C HPLC CPT-4: 70414 08/31/2015 ASSAY OF FREE THYROXINE CPT-4: 16628 08/31/2015 ASSAY THYROID STIM HORMONE CPT-4: 82752 08/31/2015 PRESCRIP TRANSMIT VIA ERX SY CPT-4: G8553 06/29/2015 FLU VACC PRSV FREE INC ANTIG 65 AND OLDER CPT-4: 10896 01/17/2015 PNEUMOCOCCAL VACC 13 ROSANNE IM CPT-4: 38378 01/17/2015 ADMIN INFLUENZA VIRUS VAC CPT-4: G0008 01/17/2015 ADMIN PNEUMOCOCCAL VACCINE CPT-4: G0009 01/17/2015 DESTRUCT PREMALG LESION (Cryosurgery) CPT-4: 36619 PRESCRIP TRANSMIT VIA ERX SY CPT-4: G8553 01/17/2015 ROUTINE VENIPUNCTURE CPT-4: 25427 01/12/2015 COMPREHEN METABOLIC PANEL CPT-4: 89170 01/12/2015 COMPLETE CBC W/AUTO DIFF WBC CPT-4: 59600 01/12/2015 LIPID PANEL CPT-4: 19144 01/12/2015 A1C HPLC CPT-4: 18835 01/12/2015 DESTRUCT PREMALG LESION (Cryosurgery) CPT-4: 43020 ROUTINE VENIPUNCTURE CPT-4: 95643 08/15/2014 COMPREHEN METABOLIC PANEL CPT-4: 75894 08/15/2014 COMPLETE CBC W/AUTO DIFF WBC CPT-4: 15771 08/15/2014 LIPID PANEL CPT-4: 42973 08/15/2014 A1C HPLC CPT-4: 93875 08/15/2014 ASSAY OF PSA TOTAL CPT-4: 41256 08/15/2014 ASSAY OF FREE THYROXINE CPT-4: 41289 08/15/2014 ASSAY THYROID STIM HORMONE CPT-4: 15560 08/15/2014 ROUTINE VENIPUNCTURE CPT-4: 96316 12/14/2013 ASSAY OF FREE THYROXINE CPT-4: 30634 12/14/2013 ASSAY THYROID STIM HORMONE CPT-4: 04281 12/14/2013 COMPREHEN METABOLIC PANEL CPT-4: 19675 12/14/2013 COMPLETE CBC W/AUTO DIFF WBC CPT-4: 94197 12/14/2013 LIPID PANEL CPT-4: 77343 12/14/2013 A1C HPLC CPT-4: 83733 12/14/2013 ROUTINE VENIPUNCTURE CPT-4: 81822 06/08/2013 ASSAY OF FREE THYROXINE CPT-4: 32870 06/08/2013 ASSAY THYROID STIM HORMONE CPT-4: 86966 06/08/2013 COMPREHEN METABOLIC PANEL CPT-4: 79262 06/08/2013 COMPLETE CBC W/AUTO DIFF WBC CPT-4: 30483 06/08/2013 LIPID PANEL CPT-4: 42465 06/08/2013 A1C HPLC CPT-4: 05960 06/08/2013 ROUTINE VENIPUNCTURE CPT-4: 10737 11/11/2012 COMPREHEN METABOLIC PANEL CPT-4: 36080 11/11/2012 COMPLETE CBC W/AUTO DIFF WBC CPT-4: 18496 11/11/2012 LIPID PANEL CPT-4: 27185 11/11/2012 A1C GLYCOSYLATED HEMOGLOBIN TEST CPT-4: 92088 013 ASSAY THYROID STIM HORMONE CPT-4: 23331 11/11/2012 ROUTINE VENIPUNCTURE CPT-4: 22827 05/04/2012 ASSAY OF FREE THYROXINE CPT-4: 77182 05/04/2012 ASSAY THYROID STIM HORMONE CPT-4: 03303 05/04/2012 COMPREHEN METABOLIC PANEL CPT-4: 41849 05/04/2012 COMPLETE CBC W/AUTO DIFF WBC CPT-4: 25030 05/04/2012 LIPID PANEL CPT-4: 24222 05/04/2012 DESTRUCT PREMALG LESION (Cryosurgery) CPT-4: 03366 DESTRUCT PREMALG LES 2-14 CPT-4: 79946 03/02/2012 ROUTINE VENIPUNCTURE CPT-4: 04601 10/29/2011 COMPREHEN METABOLIC PANEL CPT-4: 75986 10/29/2011 LIPID PANEL CPT-4: 62858 10/29/2011 A1C GLYCOSYLATED HEMOGLOBIN TEST CPT-4: 08768 012 ROUTINE VENIPUNCTURE CPT-4: 34084 07/29/2011 COMPREHEN METABOLIC PANEL CPT-4: 12431 07/29/2011 LIPID PANEL CPT-4: 93640 07/29/2011 A1C GLYCOSYLATED HEMOGLOBIN TEST CPT-4: 12367 012 ROUTINE VENIPUNCTURE CPT-4: 74473 03/14/2011 COMPREHEN METABOLIC PANEL CPT-4: 31843 03/14/2011 LIPID PANEL CPT-4: 33016 03/14/2011 A1C GLYCOSYLATED HEMOGLOBIN TEST CPT-4: 08982 011 ROUTINE VENIPUNCTURE CPT-4: 51274 11/11/2010 COMPREHEN METABOLIC PANEL CPT-4: 24267 11/11/2010 LIPID PANEL CPT-4: 29625 11/11/2010 URINE CULTURE/ COLONY COUNT CPT-4: 16215 11/11/2010 URINALYSIS NONAUTO W/O SCOPE CPT-4: 93333 10/29/2010 URINE CULTURE/ COLONY COUNT CPT-4: 06461 10/29/2010 LIPID PANEL CPT-4: 97460 07/23/2010 COMPREHEN METABOLIC PANEL CPT-4: 61661 07/23/2010 ROUTINE VENIPUNCTURE CPT-4: 31170 07/23/2010 ROUTINE VENIPUNCTURE CPT-4: 87314 04/26/2010 PSA FREE AND TOTAL CPT-4: 21297|34572 04/26/2010 OCCULT BLOOD FECES CPT-4: 72296 04/24/2010 ROUTINE VENIPUNCTURE CPT-4: 79629 04/19/2010 COMPLETE CBC W/AUTO DIFF WBC CPT-4: 44567 04/19/2010 COMPREHEN METABOLIC PANEL CPT-4: 38443 04/19/2010 LIPID PANEL CPT-4: 51479 04/19/2010 TESTOSTERONE TOTAL - MALE CPT-4: 25854 04/19/2010 ASSAY THYROID STIM HORMONE CPT-4: 83083 04/19/2010 ASSAY OF FREE THYROXINE CPT-4: 51756 04/19/2010 VITAMIN D TOTAL (25 HYDROXY) CPT-4: 37012 04/19/2010 Vital Signs Date Vital 08/30/2019 Blood Pressure 1: 144/76 Code: 8480-6 Heart Rate 1: 84 bpm Respiratory Rate: 20 bpm SpO2: 98% Temperature: 36.9 (C) / 98.4 (F) We ight: 240 lbs 06/02/2019 Blood Pressure 1: 132/80 Code: 8480-6 BMI: 29.5 Code: 72772-6 Heart Rate 1: 64 bpm Height: 6'3" Respiratory Rate: 18 bpm SpO2: 97% Tempera ture: 36.6 (C) / 97.9 (F) Weight: 236 lbs 01/31/2019 Blood Pressure 1: 146/80 Code: 8480-6 Heart Rate 1: 60 bpm Respiratory Rate: 18 bpm SpO2: 96% Temperature: 36.8 (C) / 98.3 (F) We ight: 231 lbs 09/30/2018 Blood Pressure 1: 142/80 Code: 8480-6 He art Rate 1: 65 bpm 08/19/2018 Blood Pressure 1: 116/74 Code: 8480-6 Heart Rate 1: 64 bpm Respiratory Rate: 20 bpm SpO2: 96% Temperature: 36.6 (C) / 97.9 (F) We ight: 227 lbs 05/10/2018 Blood Pressure 1: 112/70 Code: 8480-6 BMI: 28.9 Code: 40931-6 Heart Rate 1: 60 bpm Height: 6'3" Respiratory Rate: 20 bpm SpO2: 95% Tempera ture: 36.6 (C) / 97.9 (F) Weight: 231 lbs 01/19/2018 Blood Pressure 1: 150/82 Code: 8480-6 Heart Rate 1: 63 bpm Respiratory Rate: 18 bpm SpO2: 98% Temperature: 36.0 (C) / 96.8 (F) We ight: 225 lbs 10/15/2017 Blood Pressure 1: 126/82 Code: 8480-6 BMI: 27.9 Code: 87683-6 Heart Rate 1: 64 bpm Height: 6'3" Respiratory Rate: 20 bpm SpO2: 96% Tempera ture: 36.7 (C) / 98.1 (F) Weight: 223 lbs 04/23/2017 Blood Pressure 1: 136/74 Code: 8480-6 BMI: 28.7 Code: 81547-3 Heart Rate 1: 76 bpm Height: 6'3" Respiratory Rate: 20 bpm Temperature: 37 .0 (C) / 98.6 (F) Weight: 230 lbs 03/11/2017 Blood Pressure 1: 136/66 Code: 8480-6 BMI: 28.6 Code: 61713-5 Heart Rate 1: 60 bpm Height: 6'3" Respiratory Rate: 20 bpm Temperature: 36 .7 (C) / 98.1 (F) Weight: 229 lbs 07/09/2016 Blood Pressure 1: 132/80 Code: 8480-6 BMI: 27.7 Code: 75825-4 Heart Rate 1: 64 bpm Height: 6'3" Respiratory Rate: 20 bpm SpO2: 96% Tempera ture: 36.9 (C) / 98.4 (F) Weight: 222 lbs 03/10/2016 Blood Pressure 1: 134/78 Code: 8480-6 BMI: 28.5 Code: 50310-5 Heart Rate 1: 60 bpm Height: 6'3" Respiratory Rate: 20 bpm SpO2: 96% Tempera ture: 36.7 (C) / 98.1 (F) Weight: 228 lbs 09/12/2015 Blood Pressure 1: 136/78 Code: 8480-6 Heart Rate 1: 84 bpm Height: Respiratory Rate: 24 bpm SpO2: 97% Temperature: 36.4 (C) / 97.6 (F) We ight: 09/10/2015 Blood Pressure 1: 124/76 Code: 8480-6 BMI: 28.5 Code: 33637-3 Heart Rate 1: 76 bpm Height: 6'3" Respiratory Rate: 24 bpm SpO2: 97% Tempera ture: 36.4 (C) / 97.6 (F) Weight: 228 lbs 09/06/2015 Blood Pressure 1: 12482 Code: 8480-6 BMI: 29.0 Code: 22583-3 Heart Rate 1: 66 bpm Height: 6'3" Respiratory Rate: 20 bpm SpO2: 97% Tempera ture: 36.4 (C) / 97.6 (F) Weight: 232 lbs 06/29/2015 Blood Pressure 1: 124 Code: 8480-6 Heart Rate 1: 88 bpm Height: Respiratory Rate: 20 bpm Temperature: 36.7 (C) / 98.1 (F) Weight: 01/17/2015 Blood Pressure 1: 12478 Code: 8480-6 BMI: 27.7 Code: 62138-0 Heart Rate 1: 76 bpm Height: 6'3" Respiratory Rate: 20 bpm Temperature: 36 .6 (C) / 97.8 (F) Weight: 222 lbs 09/19/2014 Blood Pressure 1: 128/80 Code: 8480-6 BMI: 27.4 Code: 15439-9 Heart Rate 1: 64 bpm Height: 6'3" Respiratory Rate: 20 bpm Temperature: 36 .4 (C) / 97.6 (F) Weight: 219 lbs 10/17/2013 Blood Pressure 1: 116/70 Code: 8480-6 Heart Rate 1: 88 bpm Respiratory Rate: 20 bpm Temperature: 36.9 (C) / 98.4 (F) Weight: 220 lbs 09/23/2013 Blood Pressure 1: 124/80 Code: 8480-6 BMI: 28.7 Code: 26410-3 Heart Rate 1: 76 bpm Height: 6'3" Respiratory Rate: 20 bpm Temperature: 36 .8 (C) / 98.2 (F) Weight: 230 lbs 07/22/2013 Blood Pressure 1: 128/70 Code: 8480-6 He art Rate 1: 78 bpm 06/20/2013 Blood Pressure 1: 144/86 Code: 8480-6 BMI: 28.7 Code: 29973-8 Heart Rate 1: 92 bpm Height: 6'3" Respiratory Rate: 20 bpm Temperature: 36 .4 (C) / 97.6 (F) Weight: 230 lbs 11/25/2012 Blood Pressure 1: 128/80 Code: 8480-6 BMI: 27.5 Code: 77651-9 Heart Rate 1: 92 bpm Height: 6'3" Respiratory Rate: 20 bpm Temperature: 36 .8 (C) / 98.3 (F) Weight: 220 lbs 08/27/2012 Blood Pressure 1: 142/80 Code: 8480-6 BMI: 27.7 Code: 71945-5 Heart Rate 1: 76 bpm Height: 6'3" Respiratory Rate: 20 bpm Temperature: 36 .8 (C) / 98.3 (F) Weight: 222 lbs 05/11/2012 Blood Pressure 1: 136/80 Code: 8480-6 BMI: 27.7 Code: 65245-2 Heart Rate 1: 76 bpm Height: 6'3" Respiratory Rate: 20 bpm Temperature: 36 .8 (C) / 98.3 (F) Weight: 222 lbs 03/02/2012 Blood Pressure 1: 136/70 Code: 8480-6 BMI: 28.0 Code: 60533-1 Heart Rate 1: 80 bpm Height: 6'3" Respiratory Rate: 20 bpm Temperature: 36 .6 (C) / 97.8 (F) Weight: 224 lbs 12/11/2011 Blood Pressure 1: 142/80 Code: 8480-6 BMI: 27.1 Code: 54666-3 Heart Rate 1: 84 bpm Height: 6'3" Respiratory Rate: 20 bpm Temperature: 36 .9 (C) / 98.4 (F) Weight: 217 lbs 08/14/2011 Blood Pressure 1: 130/82 Code: 8480-6 He art Rate 1: 64 bpm 07/29/2011 Blood Pressure 1: 132/64 Code: 8480-6 BMI: 26.7 Code: 91023-4 Heart Rate 1: 72 bpm Height: 6'3" Respiratory Rate: 20 bpm Temperature: 36 .6 (C) / 97.9 (F) Weight: 214 lbs 07/23/2011 Blood Pressure 1: 138/76 Code: 8480-6 He art Rate 1: 100 bpm 06/24/2011 Blood Pressure 1: 124/72 Code: 8480-6 He art Rate 1: 64 bpm 05/20/2011 Blood Pressure 1: 142/87 Code: 8480-6 He art Rate 1: 76 bpm 04/29/2011 Blood Pressure 1: 166/90 Code: 8480-6 Bl ood Pressure 2: 150/76 Code: 8480-6 Heart Rate 1: 90 bpm 04/15/2011 Blood Pressure 1: 174/82 Code: 8480-6 Bl ood Pressure 2: 156/86 Code: 8480-6 Heart Rate 1: 76 bpm 03/18/2011 Blood Pressure 1: 142/88 Code: 8480-6 BMI: 26.4 Code: 97939-1 Heart Rate 1: 80 bpm Height: 6'3" Respiratory Rate: 20 bpm Temperature: 36 .7 (C) / 98.0 (F) Weight: 211 lbs 07/30/2010 Blood Pressure 1: 140/86 Code: 8480-6 Heart Rate 1: 80 bpm Temperature: 36.4 (C) / 97.6 (F) Weight: 219 lbs 04/24/2010 Blood Pressure 1: 136/80 Code: 8480-6 Heart Rate 1: 72 bpm Temperature: 36.1 (C) / 97.0 (F) Weight: 216 lbs Functional Status No Functional Status data Reason For Visit Reason For Visit Effective Dates Notes follow up 08/30/2019 Patient has basal ce ll carcinoma on face and will be having laser treatment done on it follow up 06/02/2019 lab draw 05/24/2019 follow up 01/31/2019 lab draw 01/26/2019 Flu shot blood pressure check 09/30/2018 follow up 08/19/2018 lab draw 08/16/2018 follow up 05/10/2018 lab draw 05/05/2018 follow up 01/19/2018 lab draw 01/13/2018 here for fasting lab work follow up 10/15/2017 lab draw 10/06/2017 skin lesion 04/23/2017 follow up 03/11/2017 lab draw 03/05/2017 follow up 07/09/2016 lab draw 06/16/2016 follow up 03/10/2016 lab draw 03/06/2016 follow up 09/12/2015 2 day tick bite 09/10/2015 Patient noticed tick bite on Satur morning on 09/08/15 at own home to inner thigh right side- follow up 09/06/2015 Discuss labs- 4 ceci h followup lab draw 08/31/2015 diarrhea 06/29/2015 follow up 01/17/2015 lab draw 01/12/2015 follow up 09/19/2014 lab draw 08/15/2014 lab draw 12/14/2013 follow up 10/17/2013 rash 09/23/2013 blood pressure check 07/22/2013 follow up 06/20/2013 Discuss coming off t he metformin lab draw 06/08/2013 follow up 11/25/2012 lab draw 11/11/2012 rash 08/27/2012 Having sense of smel l problems the last 3 weeks follow up 05/11/2012 discuss labs lab draw 05/04/2012 skin lesion 03/02/2012 request cryotherapy follow up 12/11/2011 discuss labs from [facility] 2011 lab draw 10/29/2011 blood pressure check 08/14/2011 high blood pressure 07/29/2011 readings are up and down, currently taking amlodipine 7.5mg daily, and lisinopril 40mg blood pressure check 07/23/2011 blood pressure check 06/24/2011 blood pressure check 05/20/2011 blood pressure check 04/29/2011 blood pressure check 04/15/2011 follow up 03/18/2011 discuss labs lab draw 11/11/2010 follow up 07/30/2010 discuss labs lab draw 07/23/2010 Yearly Checkup/Physical 04/24/2010 discuss labs Encounters Encounter Performer Location Codes Date ([id number]) OFFICE/OUTPATIENT VISIT EST Diagnosis: Type 2 diabetes mellitus with hyperglycemia[ICD10: E11.65] Diagnosis: Essential hypertension[ICD10: I10] Diagnosis: Stress reaction[ICD10: F43.0] Najma [employer] CPT-4: 69755 08/30/2019 ([id number]) NURSE/OUTPATIENT VISIT EST Diagnosis: Essential (primary) hypertension[ICD10: I10] Diagnosis: Type 2 diabetes mellitus with hyperglycemia[ICD10: E11.65] Najma OG [employer] CPT-4: 64049 08/24/2019 ([id number]) OFFICE/OUTPATIENT VISIT EST Diagnosis: Essential (primary) hypertension[ICD10: I10] Diagnosis: Gastro-esophageal reflux disease without esophagitis[ICD10: K21.9] Diagnosis: Type 2 diabetes mellitus with hyperglycemia[ICD10: E11.65] Najma OG DO [facility] CPT-4: 63892 06/02/2019 ([id number]) NURSE/OUTPATIENT VISIT EST Diagnosis: Type 2 diabetes mellitus without complications[ICD10: E11.9] Diagnosis: Essential (primary) hypertension[ICD10: I10] Diagnosis: Mixed hyperlipidemia[ICD10: E78.2] Najma OG DO [facility] CPT-4: 83853 05/24/2019 ([id number]) OFFICE/OUTPATIENT VISIT EST Diagnosis: Essential (primary) hypertension[ICD10: I10] Diagnosis: Type 2 diabetes mellitus without complications[ICD10: E11.9] Diagnosis: Mixed hyperlipidemia[ICD10: E78.2] Najma OG [facility] CPT-4: 62641 01/31/2019 ([id number]) NURSE/OUTPATIENT VISIT EST Diagnosis: Mixed hyperlipidemia[ICD10: E78.2] Diagnosis: Type 2 diabetes mellitus without complications[ICD10: E11.9] Diagnosis: Essential (primary) hypertension[ICD10: I10] Diagnosis: Chronic kidney disease, unspecified[ICD10: N18.9] Najma OG DO [employer] CPT-4: 66492 01/26/2019 ([id number]) NURSE/OUTPATIENT VISIT EST Diagnosis: Chronic kidney disease, unspecified[ICD10: N18.9] Diagnosis: Essential (primary) hypertension[ICD10: I10] Najma OG DO [facility] CPT-4: 37173 09/30/2018 ([id number]) OFFICE/OUTPATIENT VISIT EST Diagnosis: Essential (primary) hypertension[ICD10: I10] Diagnosis: Type 2 diabetes mellitus without complications[ICD10: E11.9] Diagnosis: Mixed hyperlipidemia[ICD10: E78.2] Diagnosis: Unspecified kidney failure[ICD10: N19] Najma ABBOTTTg CHAPMAN Matilda OG [employer] CPT-4: 81850 08/19/2018 ([id number]) NURSE/OUTPATIENT VISIT EST Diagnosis: Essential (primary) hypertension[ICD10: I10] Diagnosis: Type 1 diabetes mellitus with unspecified complications[ICD10: E10.8] Diagnosis: Mixed hyperlipidemia[ICD10: E78.2] Najma GODINEZ [employer] CPT-4: 77875 08/16/2018 ([id number]) OFFICE/OUTPATIENT VISIT EST Diagnosis: Essential (primary) hypertension[ICD10: I10] Diagnosis: Type 2 diabetes mellitus without complications[ICD10: E11.9] Diagnosis: Mixed hyperlipidemia[ICD10: E78.2] Najma ROWAN [employer] CPT-4: 38532 05/10/2018 ([id number]) NURSE/OUTPATIENT VISIT EST Diagnosis: Essential (primary) hypertension[ICD10: I10] Diagnosis: Mixed hyperlipidemia[ICD10: E78.2] Diagnosis: Type 1 diabetes mellitus with unspecified complications[ICD10: E10.8] Najma MCARTHUR [employer] CPT-4: 29397 05/05/2018 ([id number]) OFFICE/OUTPATIENT VISIT EST Diagnosis: Type 2 diabetes mellitus without complications[ICD10: E11.9] Diagnosis: Mixed hyperlipidemia[ICD10: E78.2] Diagnosis: Nicotine dependence, unspecified, uncomplicated[ICD10: F17.200] Diagnosis: Essential (primary) hypertension[ICD10: I10] Najma [employer] CPT-4: 84979 01/19/2018 ([id number]) NURSE/OUTPATIENT VISIT EST Diagnosis: Type 1 diabetes mellitus with unspecified complications[ICD10: E10.8] Diagnosis: Essential (primary) hypertension[ICD10: I10] Diagnosis: Male erectile disorder[ICD10: F52.21] Diagnosis: Encounter for screening for malignant neoplasm of prostate[ICD10: Z12.5] Najma OG [employer] CPT-4: 05104 01/13/2018 ([id number]) OFFICE/OUTPATIENT VISIT EST Diagnosis: Type 2 diabetes mellitus without complications[ICD10: E11.9] Diagnosis: Essential (primary) hypertension[ICD10: I10] Diagnosis: Mixed hyperlipidemia[ICD10: E78.2] Najma OG [facility] CPT-4: 91001 10/15/2017 ([id number]) NURSE/OUTPATIENT VISIT EST Diagnosis: Type 2 diabetes mellitus without complications[ICD10: E11.9] Diagnosis: Mixed hyperlipidemia[ICD10: E78.2] Diagnosis: Essential (primary) hypertension[ICD10: I10] Diagnosis: Glossitis[ICD10: K14.0] Najma THAKKAR [employer] CPT-4: 38588 10/06/2017 ([id number]) OFFICE/OUTPATIENT VISIT EST Diagnosis: Type 2 diabetes mellitus without complications[ICD10: E11.9] Diagnosis: Mixed hyperlipidemia[ICD10: E78.2] Diagnosis: Essential (primary) hypertension[ICD10: I10] Najma OG DO [facility] CPT-4: 07754 03/11/2017 ([id number]) OFFICE/OUTPATIENT VISIT EST Diagnosis: Type 1 diabetes mellitus with unspecified complications[ICD10: E10.8] Diagnosis: Mixed hyperlipidemia[ICD10: E78.2] Diagnosis: Essential (primary) hypertension[ICD10: I10] Diagnosis: Other fatigue[ICD10: R53.83] Najma OG [employer] CPT-4: 20666 03/05/2017 ([id number]) OFFICE/OUTPATIENT VISIT EST Diagnosis: Type 2 diabetes mellitus without complications[ICD10: E11.9] Diagnosis: Mixed hyperlipidemia[ICD10: E78.2] Diagnosis: Essential (primary) hypertension[ICD10: I10] Diagnosis: Nicotine dependence, unspecified, uncomplicated[ICD10: F17.200] Najma OG [employer] CPT-4: 82068 07/09/2016 ([id number]) OFFICE/OUTPATIENT VISIT EST Diagnosis: Type 1 diabetes mellitus with unspecified complications[ICD10: E10.8] Diagnosis: Mixed hyperlipidemia[ICD10: E78.2] Diagnosis: Essential (primary) hypertension[ICD10: I10] Najma OG [employer] CPT-4: 85596 06/16/2016 ([id number]) OFFICE/OUTPATIENT VISIT EST Diagnosis: Type 2 diabetes mellitus without complications[ICD10: E11.9] Diagnosis: Mixed hyperlipidemia[ICD10: E78.2] Diagnosis: Essential (primary) hypertension[ICD10: I10] Najma OG [employer] CPT-4: 17900 03/10/2016 ([id number]) OFFICE/OUTPATIENT VISIT EST Diagnosis: Type 1 diabetes mellitus with unspecified complications[ICD10: E10.8] Diagnosis: Mixed hyperlipidemia[ICD10: E78.2] Diagnosis: Essential (primary) hypertension[ICD10: I10] Najma OG [facility] CPT-4: 12946 03/06/2016 ([id number]) OFFICE/OUTPATIENT VISIT EST Diagnosis: Bitten or stung by nonvenomous insect and other nonvenomous arthropods, subsequent encounter[ICD10: W57.XXXD] Diagnosis: Insect bite (nonvenomous), right thigh, subsequent encounter[ICD10: S70.361D] Barbara ABBOTTQUELINE Matilda SAMSONSonarworksBIJAN [facility] CPT-4: 43776 11/2015 ([id number]) OFFICE/OUTPATIENT VISIT EST Diagnosis: Bitten or stung by nonvenomous insect and other nonvenomous arthropods, initial encounter[ICD10: W57.XXXA] Diagnosis: Insect bite (nonvenomous), right thigh, initial encounter[ICD10: S70.361A] Barbara ABBOTTQUELINE Matilda OG [facility] CPT-4: 47587 09/2015 ([id number]) OFFICE/OUTPATIENT VISIT EST Diagnosis: Mixed hyperlipidemia[ICD10: E78.2] Diagnosis: Essential (primary) hypertension[ICD10: I10] Diagnosis: Type 2 diabetes mellitus without complications[ICD10: E11.9] Diagnosis: Encounter for immunization[ICD10: Z23] Diagnosis: Encounter for screening for malignant neoplasm of colon[ICD10: Z12.11] Diagnosis: Abnormal weight gain[ICD10: R63.5] Barbara ABBOTTDAREN GRETCHEN OG [facility] CPT-4: 03389 09/06/2015 ([id number]) OFFICE/OUTPATIENT VISIT EST Diagnosis: Type 2 diabetes mellitus without complications[ICD10: E11.9] Diagnosis: Mixed hyperlipidemia[ICD10: E78.2] Diagnosis: Essential (primary) hypertension[ICD10: I10] Diagnosis: Encounter for screening for malignant neoplasm of prostate[ICD10: Z12.5] Diagnosis: Other fatigue[ICD10: R53.83] Najma OG [facility] CPT-4: 10187 08/31/2015 OFFICE/OUTPATIENT VISIT EST Diagnosis: Diarrhea, unspecified[ICD10: R19.7] Henrietta Lubin KAYLEY OG [facility] CPT-4: 28006 06/29/2015 OFFICE/OUTPATIENT VISIT EST Diagnosis: PNEUMOCOCCAL VACCINE[ICD10: Z23] Diagnosis: FLU VACCINE[ICD10: Z23] Diagnosis: Essential (primary) hypertension[ICD10: I10] Diagnosis: Mixed hyperlipidemia[ICD10: E78.2] Diagnosis: Type 1 diabetes mellitus with unspecified complications[ICD10: E10.8] Diagnosis: Actinic keratosis[ICD10: L57.0] [facility] CPT-4: 93880 01/17/2015 ([id number]) OFFICE/OUTPATIENT VISIT EST Diagnosis: Type 2 diabetes mellitus without complications[ICD10: E11.9] Diagnosis: Impaired fasting glucose[ICD10: R73.01] Diagnosis: Mixed hyperlipidemia[ICD10: E78.2] Diagnosis: Essential (primary) hypertension[ICD10: I10] Najma OG [facility] CPT-4: 17149 01/12/2015 ([id number]) OFFICE/OUTPATIENT VISIT EST Diagnosis: - I - HYPERLIPIDEMIA NEC/NOS[ICD9: 272.4] Diagnosis: HYPERTENSION[ICD9: 401.9] Diagnosis: DM W/O COMPLICATION TYPE II[ICD9: 250.00] Diagnosis: ACTINIC KERATOSIS[ICD9: 702.0] Najma OG [facility] CPT-4: 35842 09/19/2014 ([id number]) OFFICE/OUTPATIENT VISIT EST Diagnosis: HYPERLIPIDEMIA NEC/NOS[ICD9: 272.4] Diagnosis: HYPERTENSION[ICD9: 401.9] Diagnosis: IMPAIRED FASTING GLUCOSE[ICD9: 790.21] Diagnosis: MALAISE AND FATIGUE[ICD9: 780.79] Najma Orendbijan OG DO [facility] CPT-4: 14797 08/15/2014 ([id number]) OFFICE/OUTPATIENT VISIT EST Diagnosis: HYPERLIPIDEMIA NEC/NOS[ICD9: 272.4] Diagnosis: HYPERTENSION[ICD9: 401.9] Diagnosis: IMPAIRED FASTING GLUCOSE[ICD9: 790.21] Najma OG DO [facility] CPT-4: 35525 12/14/2013 ([id number]) OFFICE/OUTPATIENT VISIT EST Diagnosis: Post herpetic neuralgia[ICD9: 053.19] Najma OG [facility] CPT-4: 28579 10/17/2013 OFFICE/OUTPATIENT VISIT EST Diagnosis: Shingles[ICD9: 053.9] Diagnosis: Post herpetic neuralgia[ICD9: 053.19] Jeanie Navarro CLAUDE OG [facility] CPT-4: 60027 09/23/2013 ([id number]) OFFICE/OUTPATIENT VISIT EST Diagnosis: HYPERTENSION[ICD9: 401.9] Diagnosis: HYPERLIPIDEMIA NEC/NOS[ICD9: 272.4] Diagnosis: IMPAIRED FASTING GLUCOSE[ICD9: 790.21] Najma OG [facility] CPT-4: 55310 06/20/2013 ([id number]) OFFICE/OUTPATIENT VISIT EST Diagnosis: HYPERLIPIDEMIA NEC/NOS[ICD9: 272.4] Diagnosis: MALAISE AND FATIGUE[ICD9: 780.79] Diagnosis: ROUTINE MEDICAL EXAM[ICD9: V70.0] Diagnosis: HYPERTENSION[ICD9: 401.9] Diagnosis: IMPAIRED FASTING GLUCOSE[ICD9: 790.21] Najma OG [facility] CPT-4: 29354 06/08/2013 ([id number]) OFFICE/OUTPATIENT VISIT EST Diagnosis: HYPERLIPIDEMIA NEC/NOS[ICD9: 272.4] Diagnosis: HYPERTENSION[ICD9: 401.9] Diagnosis: IMPAIRED FASTING GLUCOSE[ICD9: 790.21] Diagnosis: DIARRHEA[ICD9: 787.91] Najma Orendbijan Stallings [facility] CPT-4: 40284 11/25/2012 ([id number]) OFFICE/OUTPATIENT VISIT EST Diagnosis: HYPERLIPIDEMIA NEC/NOS[ICD9: 272.4] Diagnosis: HYPERTENSION[ICD9: 401.9] Diagnosis: IMPAIRED FASTING GLUCOSE[ICD9: 790.21] Diagnosis: MALAISE AND FATIGUE[ICD9: 780.79] Najma OG DO [facility] CPT-4: 51450 11/11/2012 OFFICE/OUTPATIENT VISIT EST Diagnosis: Fungal dermatitis[ICD9: 111.9] Diagnosis: Dry skin dermatitis[ICD9: 692.89] Henrietta Tristian FILI OG DO [facility] CPT-4: 51752 08/27/2012 ([id number]) OFFICE/OUTPATIENT VISIT EST Diagnosis: HYPERTENSION[ICD9: 401.9] Diagnosis: HYPERLIPIDEMIA NEC/NOS[ICD9: 272.4] Najma Heverpepperbijan OG DO [facility] CPT-4: 38701 05/11/2012 ([id number]) OFFICE/OUTPATIENT VISIT EST Diagnosis: HYPERLIPIDEMIA NEC/NOS[ICD9: 272.4] Diagnosis: HYPERTENSION[ICD9: 401.9] Diagnosis: ROUTINE MEDICAL EXAM[ICD9: V70.0] Najma OG DO [facility] CPT-4: 59097 05/04/2012 ([id number]) OFFICE/OUTPATIENT VISIT EST Diagnosis: HYPERTENSION[ICD9: 401.9] Diagnosis: HYPERLIPIDEMIA NEC/NOS[ICD9: 272.4] Diagnosis: IMPAIRED FASTING GLUCOSE[ICD9: 790.21] Najma Og SHABNAM OG DO [facility] CPT-4: 76941 12/11/2011 ([id number]) OFFICE/OUTPATIENT VISIT EST Diagnosis: HYPERLIPIDEMIA NEC/NOS[ICD9: 272.4] Diagnosis: HYPERTENSION[ICD9: 401.9] Diagnosis: IMPAIRED FASTING GLUCOSE[ICD9: 790.21] Najma Heverpepperbijan ABBOTTQ ADELA SAMSONNDBIJAN WADE [facility] CPT-4: 00855 10/29/2011 ([id number]) OFFICE/OUTPATIENT VISIT EST Diagnosis: HYPERTENSION[ICD9: 401.9] Namja MCARTHUR Matilda PAYAN [facility] CPT-4: 20818 08/14/2011 ([id number]) OFFICE/OUTPATIENT VISIT EST Diagnosis: HYPERTENSION[ICD9: 401.9] Diagnosis: IMPAIRED FASTING GLUCOSE[ICD9: 790.21] Najma LONGER [facility] CPT-4: 85258 07/29/2011 ([id number]) OFFICE/OUTPATIENT VISIT EST Diagnosis: HYPERTENSION[ICD9: 401.9] Najma [facility] CPT-4: 39312 07/23/2011 ([id number]) OFFICE/OUTPATIENT VISIT EST Diagnosis: HYPERTENSION[ICD9: 401.9] Najma [facility]SON [facility] CPT-4: 40669 06/24/2011 OFFICE/OUTPATIENT VISIT EST Diagnosis: HYPERTENSION[ICD9: 401.9] Najma [facility]SON [facility] CPT-4: 65454 05/20/2011 OFFICE/OUTPATIENT VISIT EST Diagnosis: HYPERTENSION[ICD9: 401.9] Najma SAMSON NDER DO [facility] CPT-4: 79595 04/15/2011 OFFICE/OUTPATIENT VISIT EST Diagnosis: HYPERLIPIDEMIA NEC/NOS[ICD9: 272.4] Diagnosis: IMPAIRED FASTING GLUCOSE[ICD9: 790.21] Najma LONGER [facility] CPT-4: 64215 03/18/2011 ([id number]) OFFICE/OUTPATIENT VISIT EST Najma OG DO [facility] CPT-4: 02891 07/30/2010 ([id number]) PREV VISIT, EST, AGE 40-64 Najma OG DO [facility] CPT-4: 74047 04/24/2010 Plan of Care Planned Activity Notes Codes Status Date Appointment: Srikanthbijan Najma AmeenaMatilde [id number] CAN[facility] 09/01/2019 Visit Diagnosis Plan: Type 2 diabetes mellitus with hy perglycemia Discussion: Lab discussed Accuchecks daily Continue current meds Check CMP and HbA1C in 3mos then fwup ICD-9 : 250.02 ICD-10 : E11.65 08/30/2019 Visit Diagnosis Plan: Stress reaction Discussion: Rest art lexapro ICD-9 : 308.9 ICD-10 : F43.0 08/30/2019 Visit Diagnosis Plan: Essential hypertension Discussio n: Stable ICD-9 : 401.9 ICD-10 : I10 08/30/2019 Appointment: Najma Og WPtel: [address] [place] [address] [place] FOLLOW UP 08/30/2019 Patient Education: escitalopram oxalate- [employer] Co upon [id number] [email or web address]/[email or web address] Completed 08/30/2019 Appointment: Najma Og WPtel: [address] [place] [address] [place] LAB 08/24/2019 Visit Diagnosis Plan: Type 2 diabetes mellitus with hy perglycemia Discussion: Lab discussed Accuchecks daily Continue current meds and work on lifestyle Check CMP and HbA1C in 3mos then fwup ICD-9 : 250.02 ICD-10 : E11.65 06/02/2019 Visit Diagnosis Plan: Essential (primary) hypertension Discussion: Stable ICD-9 : 401.9 ICD-10 : I10 06/02/2019 Visit Diagnosis Plan: Gastro-esophageal reflux disease without esophagitis Discussion: Pepcid 20mg daily ICD-9 : 530.81 ICD-10 : K21.9 06/02/2019 Appointment: Najma Og WPtel: [address] [place], [place] [phone] [place] FOLLOW UP 06/02/2019 Appointment: Najma Og WPtel: [address] [place], [place] [phone] [place] LAB 05/24/2019 Visit Diagnosis Plan: Essential (primary) hypertension Discussion: Stable ICD-9 : 401.9 ICD-10 : I10 01/31/2019 Visit Diagnosis Plan: Type 2 diabetes mellitus without complications Discussion: Lab discussed Accuchecks daily Continue current meds Check CMP and HbA1C in 3mos then fwup ICD-9 : 250.00 ICD-10 : E11.9 01/31/2019 Visit Diagnosis Plan: Mixed hyperlipidemia Discussion: Mediterranean diet Combination of cardio and weight bearing exercise ICD-9 : 272.2 ICD-10 : E78.2 01/31/2019 Appointment: Najma Og WPtel: [address] [place] [address] US FOLLOW UP 01/31/2019 Appointment: Najma Og WPtel: [address] [place] [address] US LAB 01/26/2019 Appointment: Najma Og WPtel: [address] [place] [address] US LAB 09/30/2018 Visit Diagnosis Plan: Unspecified kidney failure Discu ssion: Culture urine, if negative will likely need renal US ICD-9 : 586 ICD-10 : N19 08/19/2018 Visit Diagnosis Plan: Essential (primary) hypertension Discussion: Stable ICD-9 : 401.9 ICD-10 : I10 08/19/2018 Visit Diagnosis Plan: Type 2 diabetes mellitus without complications Discussion: Lab discussed Accuchecks daily Continue current meds Check CMP and HbA1C in 3mos then fwup ICD-9 : 250.00 ICD-10 : E11.9 08/19/2018 Appointment: Najma Og WPtel: [address] [place] [address] US FOLLOW UP 08/19/2018 Appointment: Najma Og WPtel: [address] [place] [address] US LAB 08/16/2018 Visit Diagnosis Plan: Essential (primary) hypertension Discussion: Stable ICD-9 : 401.9 ICD-10 : I10 05/10/2018 Visit Diagnosis Plan: Type 2 diabetes mellitus without complications Discussion: Lab discussed Accuchecks daily Lifestyle change ICD-9 : 250.00 ICD-10 : E11.9 05/10/2018 Visit Diagnosis Plan: Mixed hyperlipidemia Discussion: Continue current meds Lifestyle change--Mediterranean diet with combo of cardio/weight bearing exercise Follow Up: 3 months ICD-9 : 272.4 ICD-10 : E78.2 05/10/2018 Appointment: Najma Og WPtel: [address] [place] [address] US FOLLOW UP 05/10/2018 Patient Education: Low Back Pain Exercises: Illustration Completed 05/10/2018 Patient Education: Low Back Pain Exercises Completed 05/10/2018 Appointment: Najma Og WPtel: [address] [place] [address] US LAB 05/05/2018 Visit Diagnosis Plan: Type 2 diabetes mellitus without complications DiscussionLab discussed: Lab discussed Accuchecks daily Follow Up: 4 months ICD-9 : 250.00 ICD-10 : E11.9 01/19/2018 Visit Diagnosis Plan: Nicotine dependence, unspecified , uncomplicated Discussion: Smoking cessation Recommend Low Dose CT Scan of Lungs--patient states he will think about it Recommend Shingrix Recommend flu shot now--patient wants to wait until end of month ICD-9 : 305.1 ICD-10 : F17.200 01/19/2018 Visit Diagnosis Plan: Mixed hyperlipidemia Discussion: Lab discussed Add fenofibrate 134mg daily ICD-9 : 272.4 ICD-10 : E78.2 01/19/2018 Appointment: Najma Og WPtel: [address] [place] [address] FOLLOW UP 01/19/2018 Patient Education: Patient Medication Summary Completed 01/19/2018 Appointment: Najma Og WPtel: [address] [place] [address] US LAB 01/13/2018 Patient Education: Patient Medication Summary Completed 01/13/2018 Visit Diagnosis Plan: Type 2 diabetes mellitus without complications Discussion: Lab discussed Continue current meds Accuchecks daily Recommend shingrix ICD-9 : 250.00 ICD-10 : E11.9 10/15/2017 Visit Diagnosis Plan: Mixed hyperlipidemia Discussion: Restart crestor at 5mg daily Make sure taking Vitamin D3 1000u daily Follow Up: 3 months ICD-9 : 272.2 ICD-10 : E78.2 10/15/2017 Visit Diagnosis Plan: Essential (primary) hypertension Discussion: Stable ICD-9 : 401.9 ICD-10 : I10 10/15/2017 Appointment: Najma Og WPtel: [address] [place], [place] [phone] FOLLOW UP 10/15/2017 Patient Education: Patient Medication Summary Completed 10/15/2017 Appointment: Najma Og WPtel: [address] [place], [place] [phone] [place] LAB 10/06/2017 Patient Education: Patient Medication Summary Completed 10/06/2017 Visit Diagnosis Plan: Actinic keratosis Discussion: Cr yotherapy as above ICD-9 : 702.0 ICD-10 : L57.0 04/23/2017 Appointment: Najma Og WPtel: [address] [place] [address] OFFICE SURGERY 04/23/2017 Patient Education: Patient Medication Summary Completed 04/23/2017 Visit Diagnosis Plan: Type 2 diabetes mellitus without complications Discussion: Lab discussed Accuchecks daily Continue current meds ICD-9 : 250.00 ICD-10 : E11.9 03/11/2017 Visit Diagnosis Plan: Essential (primary) hypertension Discussion: Stable Will return after first of year for cryotherapy to AKs of arms and face ICD-9 : 401.9 ICD-10 : I10 03/11/2017 Visit Diagnosis Plan: Mixed hyperlipidemia Discussion: Lab discussed TG have went up but patient wants to keep meds the same and focus on diet/exercise/lifestyle change the next 6mos then recheck ICD-9 : 272.2 ICD-10 : E78.2 03/11/2017 Appointment: Najma gO WPtel: [address] [place], [place] [phone] FOLLOW UP 03/11/2017 Patient Education: Patient Medication Summary Completed 03/11/2017 Appointment: Najma Og WPtel: [address] [place], [place] [phone] [place] LAB 03/05/2017 Patient Education: Patient Medication Summary Completed 03/05/2017 Visit Diagnosis Plan: Mixed hyperlipidemia Discussion: Lab discussed Continue current meds ICD-9 : 272.2 ICD-10 : E78.2 07/09/2016 Visit Diagnosis Plan: Type 2 diabetes mellitus without complications Discussion: Lab discussed Accuchecks daily Continue metformin Follow Up: 3 months ICD-9 : 250.00 ICD-10 : E11.9 07/09/2016 Visit Diagnosis Plan: Nicotine dependence, unspecified , uncomplicated Discussion: Smoking cessation ICD-9 : 305.1 ICD-10 : F17.200 07/09/2016 Appointment: Najma Og WPtel: [address] [place], [place] [phone] [place] 07/08 lm ~sl 07/09 confirmed~sl FOLLOW UP 08/2016 Patient Education: Patient Medication Summary Completed 07/09/2016 Appointment: Najma Og WPtel: [address] [place], [place] [phone] US LAB 06/16/2016 Patient Education: Patient Medication Summary Completed 06/16/2016 Visit Plan: Lab discussed Accuchecks maribel ly Lifestyle change for 3mos then check CMP, HbA1C in 3mos Has had flu and pneumonia shot 03/10/2016 Appointment: Najma Og WPtel: [address] [place], [place] [phone] US 03/06 confirmed `sl FOLLOW UP 03/10/2016 Patient Education: Patient Medication Summary Completed 03/10/2016 Appointment: Najma Og WPtel: [address] [place], [place] [phone] [place] LAB 03/06/2016 Patient Education: Patient Medication Summary Completed 03/06/2016 Referral: [id number] [facility] Ref[facility] Completed 10/22/2015 Visit Plan: Tick bite area looks much be tter Continue current rxs and close monitoring Follow up if any new symptoms or worsening appearance 09/12/2015 Appointment: Barbara Brower [address] [place], [place] [phone] 09/10 confirmed~sl FOLLOW UP 09/12/2015 Patient Education: Patient Medication Summary Completed 09/12/2015 Visit Plan: Cover as above 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 topical steroids to calm down the inflammation(suspect most of redness is due to histamine response vs infection) Monitor closely Follow up in 2 days to recheck 09/10/2015 Appointment: Barbara Brower [address] [place] [address] ACUTE ILLNESS 09/10/2015 Patient Education: Patient Medication Summary Completed 09/10/2015 Visit Plan: Counseled on weight gain, im proving diet and exercise No med changes today Needs repeat cmp and lipids in 4 months to see if trigs, glucose and A1C are improved with diet and exericse Pneumonvax given Appt with Dr Keller to be arranged for routine colonoscopy Patient to consider shingles vaccine 09/06/2015 Appointment: Barbara Brower [address] [place] [address] FOLLOW UP 09/06/2015 Patient Education: Patient Medication Summary Completed 09/06/2015 Care Plan: Referral Order SNOMED-CT : [id number] Pending 09/06/2015 Appointment: Najma Og WPtel: [address] [place] [address] LAB 08/31/2015 Patient Education: Patient Medication Summary Completed 08/31/2015 Visit Plan: Offered aggressive (KUB, IV fluids, Labs) vs. conservative (oral hydration, treat symptoms, watchful waiting). Elects for conservative + labs. CBC & CMP at [facility] Discussed needed oral hydration (preferably with sports drinks), 24 hour clear liquid followed by BRAT diet and advance as tolerated Discussed s/s of worsening, go to UC/ER. 06/29/2015 Appointment: Henrietta Lubin WPtel: [phone] ACUTE ILLNESS 06/29/2015 Patient Education: Patient Medication Summary Completed 06/29/2015 Visit Plan: Lab discussed Will keep meds the same Discussed diet/exercise at length Cryotherapy as above to AKs of arms Flu and Prevnar 13 given Trial of revatio per patient request for ED--warned of no nitrates Recheck 4mos 01/17/2015 Appointment: Najma Og WPtel: [address] [place], [place] [phone] [place] 01/16 confirmed~sl FOLLOW UP 01/17/2015 Patient Education: Patient Medication Summary Completed 01/17/2015 Appointment: Najma Og WPtel: [address] [place], [place] [phone] [place] LAB 01/12/2015 Patient Education: Patient Medication Summary Completed 01/12/2015 Visit Plan: Lab discussed Start accuchec ks daily Cryotherapy as above 09/19/2014 Appointment: Najma Og WPtel: [address] [place], [place] [phone] 09/18 confirmed -mf FOLLOW UP 09/19/2014 Patient Education: Patient Medication Summary Completed 09/19/2014 Appointment: Najma Og WPtel: [address] [place], [place] [phone] [place] LAB 08/15/2014 Patient Education: Patient Medication Summary Completed 08/15/2014 Appointment: Najma Og WPtel: [address] [place], [place] [phone] ACUTE ILLNESS 12/14/2013 Patient Education: Patient Medication Summary Completed 12/14/2013 Visit Plan: Patient using tylenol prn pa in Discussed possible shingles shot for booster in 9-12mos 10/17/2013 Appointment: Najma Og WPtel: [address] [place], [place] [phone] [place] FOLLOW UP 10/17/2013 Patient Education: Patient Medication Summary Completed 10/17/2013 Appointment: Jeanie Briceño WPtel: [address] [place] [address] ACUTE ILLNESS 09/23/2013 Patient Education: Patient Medication Summary Completed 09/23/2013 Appointment: Najma Og WPtel: [address] [place], [place] [phone] [place] BP CHECK 07/22/2013 Patient Education: Patient Medication Summary Completed 07/22/2013 Visit Plan: Lab discussed Discussed swit arun amlodopine to beta slim to see if helps with tremor BP check in 1mo 06/20/2013 Appointment: Najma Og WPtel: [address] [place], [place] [phone] 06/17 no answer FOLLOW UP 06/20/2013 Patient Education: Patient Medication Summary Completed 06/20/2013 Appointment: Najma Og WPtel: [address] [place], [place] [phone] [place] LAB 06/08/2013 Patient Education: Patient Medication Summary Completed 06/08/2013 Visit Plan: BRAT diet and yogurt and gat orade Lab discussed Continue current meds Spot checks on BS 11/25/2012 Appointment: Najma Og WPtel: [address] [place], [place] [phone] 11/24 vm FOLLOW UP 11/25/2012 Patient Education: Patient Medication Summary Completed 11/25/2012 Appointment: Najma Og WPtel: [address] [place], [place] [phone] LAB 11/11/2012 Patient Education: Patient Medication Summary Completed 11/11/2012 Appointment: Henrietta Lubin WPtel: [address] [place], [place] [phone] [place] WORK IN 08/27/2012 Patient Education: Patient Medication Summary Completed 08/27/2012 Visit Plan: Pt going to get new home BP moniter Continue crestor and restart fish oil and will check fasting lab in 6mos Lab results discussed 05/11/2012 Appointment: Najma Og WPtel: [address] [place], [place] [phone] 05/10 vm FOLLOW UP 05/11/2012 Patient Education: Patient Medication Summary Completed 05/11/2012 Appointment: Najma Og WPtel: [address] [place], [place] [phone] [place] LAB 05/04/2012 Patient Education: Patient Medication Summary Completed 05/04/2012 Visit Plan: 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 and forehead 03/02/2012 Appointment: Najma Og WPtel: [address] [place], [place] [phone] 03/01 OFFICE SURGERY 03/02/2012 Patient Education: Patient Medication Summary Completed 03/02/2012 Visit Plan: Labs discussed--recheck lab end of Feb/first of Mar Continue current meds and continue to moniter BS daily and BP 1-2 times a week Plan on cryotherapy this fall so can wear longsleeves after procedure See urology 12/11/2011 Appointment: Najma Og WPtel: [address] [place], [place] [phone] FOLLOW UP 12/11/2011 Patient Education: Patient Medication Summary Completed 12/11/2011 Appointment: Najma Og WPtel: [address] [place], [place] [id number] LAB 10/29/2011 Patient Education: Patient Medication Summary Completed 10/29/2011 Appointment: Najma Og WPtel: [address] [place], [place] [phone] BP CHECK 08/14/2011 Patient Education: Patient Medication Summary Completed 08/14/2011 Appointment: Najma Og WPtel: [address] [place], [place] [phone] ACUTE ILLNESS 07/29/2011 Patient Education: Patient Medication Summary Completed 07/29/2011 Appointment: Najma Og WPtel: [address] [place], [place] [phone] BP CHECK 07/23/2011 Patient Education: Patient Medication Summary Completed 07/23/2011 Appointment: Najma Og WPtel: [address] [place], [place] [phone] BP CHECK 06/24/2011 Patient Education: Patient Medication Summary Completed 06/24/2011 Appointment: Najma Og WPtel: [address] [place], [place] [phone] [place] BP CHECK 05/20/2011 Patient Education: Patient Medication Summary Completed 05/20/2011 Appointment: Najma Og WPtel: [address] [place], [place] [phone] US BP CHECK 04/29/2011 Patient Education: Patient Medication Summary Completed 04/29/2011 Appointment: Najma Og WPtel: [address] [place] [phone] [place] BP CHECK 04/15/2011 Patient Education: Patient Medication Summary Completed 04/15/2011 Visit Plan: Continue current meds Add fi sh oil 1gm daily Glucometer given to use for accuchecks prn 03/18/2011 Appointment: Najma Og WPtel: [address] [place], [place] [phone] [place] FOLLOW UP 03/18/2011 Patient Education: Patient Medication Summary Completed 03/18/2011 Appointment: Najma Og WPtel: [address] [place] [phone] [place] LAB 03/14/2011 Patient Education: Patient Medication Summary Completed 03/14/2011 Appointment: Najma Og WPtel: [address] [place] [phone] [place] LAB 11/11/2010 Appointment: Najma Og WPtel: [address] [place] [phone] [place] UA 11/11/2010 Patient Education: Patient Medication Summary Completed 11/11/2010 Appointment: Najma Og WPtel: [address] [place] [phone] [place] LAB 10/29/2010 Patient Education: Patient Medication Summary Completed 10/29/2010 Appointment: Najma Og WPtel: [address] [place] [phone] US FOLLOW UP 07/30/2010 Patient Education: Patient Medication Summary Completed 07/30/2010 Appointment: Najma Og WPtel: [address] [place], [place] [phone] [place] LAB 07/23/2010 Patient Education: Patient Medication Summary Completed 07/23/2010 Appointment: Najma Og WPtel: [address] [place], [place] [phone] [place] LAB 04/26/2010 Patient Education: Patient Medication Summary Completed 04/26/2010 Visit Plan: Add PSA to lab Restart Crest or at 10mg daily Trial of Wellbutrin to aid in smoking cessation Check Lipids and LFTs in 3mos 04/24/2010 Appointment: Najma Og WPtel: [address] [place], [place] [phone] FOLLOW UP 04/24/2010 Patient Education: Patient Medication Summary Completed 04/24/2010 Appointment: Najma Og WPtel: [address] [place] [phone] [place] LAB 04/19/2010 Patient Education: Patient Medication Summary Completed 04/19/2010 Referral: Donavon Keller WPtel: [address] [id number] Referral Completed Instructions Comment . Lab discussed Accuchecks daily Lifestyle change for 3mos then check CMP, HbA1C in 3mos Has had flu and pneumonia shot . Tick bite area looks much better Continue current rxs and close monitoring Follow up if any new symptoms or worsening appearance . Cover as above OTC antihistamines and topical steroids to calm down the inflammation(suspect most of redness is due to histamine response vs infection) Monitor closely Follow up in 2 days to recheck . Counseled on weight gain, improving di et and exercise No med changes today Needs repeat cmp and lipids in 4 months to see if trigs, glucose and A1C are improved with diet and exericse Pneumonvax given Appt with Dr Keller to be arranged for routine colonoscopy Patient to consider shingles vaccine . Offered aggressive (KUB, IV fluids, L abs) vs. conservative (oral hydration, treat symptoms, watchful waiting). Elects for conservative + labs. CBC & CMP at [facility] Discussed needed oral hydration (preferably with sports drinks), 24 hour clear liquid followed by BRAT diet and advance as tolerated Discussed s/s of worsening, go to UC/ER. . Lab discussed Will keep meds the same Discussed diet/exercise at length Cryotherapy as above to AKs of arms Flu and Prevnar 13 given Trial of revatio per patient request for ED--warned of no nitrates Recheck 4mos . Lab discussed Start accuchecks daily Cryotherapy as above . Patient using tylenol prn pain Discussed possible shingles shot for booster in 9-12mos . Lab discussed Discussed switching amlodopine to beta slim to see if helps with tremor BP check in 1mo . BRAT diet and yogurt and gatorade Lab discussed Continue current meds Spot checks on BS . Pt going to get new home BP moniter Continue crestor and restart fish oil and will check fasting lab in 6mos Lab results discussed . 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 of arms and forehead . Labs discussed--recheck lab end of Feb /first of Mar Continue current meds and continue to moniter BS daily and BP 1-2 times a week Plan on cryotherapy this fall so can wear longsleeves after procedure See urology . Continue current meds Add fish oil 1gm daily Glucometer given to use for accuchecks prn . Add PSA to lab Restart Crestor at 10mg daily Trial of Wellbutrin to aid in smoking cessation Check Lipids and LFTs in 3mos Medical Equipment No Medical Equipment data Health Concerns Section Health Concerns data not found Goals Section Goals data not found Interventions Section Interventions data not found Health Status Evaluations/Outcomes Section Health Status Evaluations/Outcomes data not found Advance Directives No Advance Directive data
--- OUTSIDE RECORDS SUMMARY | 2019-10-14 22:26 | XMS REPORT | CCD ---
Author Author Inocente Og D.O. Organization [facility] Address [address] [place] [address] Phone Care Team Providers Care Hatch Tender Name Role Phone Najma Og D.O. PP Unavailable CCM Unavailable Summary Purpose Interface Exchange Insurance Providers Payer name Policy type / Coverage type Covered constitution party ID Effective Begin Date Effective End Date [employer] MEDICARE Medicare Part B [id number] [facility] Medicare Part B [id number] Un known Family history Father Diagnosis Age At Onset Diabetes mellitus Type 2 Unknown Myocardial infarction Unknown Brother Diagnosis Age At Onset Diabetes mellitus Type 2 Unknown Mother Diagnosis Age At Onset Osteoarthritis Unknown Cerebrovascular disease Unknown Social History Social History Element Codes Description Effective Dates Tobacco history SNOMED CT: 456300973 Never smoker 12/21/2014 Marital status Unknown 07/30/2010 [...] Start Date Stop Date Status Fill Instructions amlodipine 5 mg tablet RxNorm: 932000 TAKE 1 TABLET BY MOUTH ON CE DAILY 09/12/2019 12/10/2019 Active propranolol ER 80 mg capsule,24 hr,extended release RxNorm: 181671 TAKE 1 CAPSULE BY MOUTH ONCE DAILY 09/08/2019 12/06/2019 Active metformin ER 500 mg tablet,extended release 24 hr RxNorm: 86 0975 TAKE 1 TABLET BY MOUTH ONCE DAILY 09/08/2019 12/06/2019 Active escitalopram 10 mg tablet RxNorm: 472911 1 Tablet(s) Oral QD 201911/28/2019 Active fenofibrate micronized 134 mg capsule RxNorm: 569314 TA KE 1 CAPSULE BY MOUTH ONCE DAILY FOR TRIGLYCERIDES 07/08/2019 10/05/2019 Active amlodipine 5 mg tablet RxNorm: 754146 TAKE 1 TABLET BY MOUTH ON CE DAILY 06/16/2019 09/11/2019 Inactive metformin ER 500 mg tablet,extended release 24 hr RxNorm: 86 0975 TAKE 1 TABLET BY MOUTH ONCE DAILY 06/10/2019 09/07/2019 Inactive propranolol ER 80 mg capsule,24 hr,extended release RxNorm: 764586 TAKE 1 CAPSULE BY MOUTH ONCE DAILY 06/10/2019 09/07/2019 Inactive Vitamin D3 25 mcg (1,000 unit) capsule RxNorm: 756366 1 Capsule(s) Oral two times a day 06/02/2019 No Stop Date Active turmeric 400 mg capsule RxNorm: 1 Capsule(s) Oral QD 06/02/2019 No Stop Date Active Fish Oil 120 mg-180 mg-500 mg capsule RxNorm: 2 Capsule(s) Ora l QD 06/02/2019 No Stop Date Active 16.2 mg-0.1037 mg-0.0194 mg tablet RxNorm: 7308721 1 Tablet(s) Oral four times a day as needed abdominal pain/diarrhea 06/02/2019 No Stop D ate Active fenofibrate micronized 134 mg capsule RxNorm: 305402 1 Capsule(s) Oral QD for triglycerides 04/14/2019 07/07/2019 Inactive amlodipine 5 mg tablet RxNorm: 891551 TAKE 1 TABLET BY MOUTH ON CE DAILY 03/22/2019 06/15/2019 Inactive metformin ER 500 mg tablet,extended release 24 hr RxNorm: 86 0975 TAKE 1 TABLET BY MOUTH ONCE DAILY 03/15/2019 06/09/2019 Inactive propranolol ER 80 mg capsule,24 hr,extended release RxNorm: 502828 TAKE 1 CAPSULE BY MOUTH ONCE DAILY 03/15/2019 06/09/2019 Inactive amlodipine 5 mg tablet RxNorm: 591803 1 Tablet(s) PO QD 12/27/2018 Inactive fenofibrate micronized 134 mg capsule RxNorm: 341337 TA KE 1 CAPSULE BY MOUTH ONCE DAILY FOR TRIGLYCERIDES 10/11/2018 04/13/2019 Inactive amlodipine 5 mg tablet RxNorm: 142226 1 Tablet(s) PO QD 09/30/2018 Inactive metformin ER 500 mg tablet,extended release 24 hr RxNorm: 86 0975 TAKE 1 TABLET BY MOUTH ONCE DAILY 09/21/2018 03/14/2019 Inactive propranolol ER 80 mg capsule,24 hr,extended release RxNorm: 221090 TAKE 1 CAPSULE BY MOUTH ONCE DAILY 09/21/2018 03/14/2019 Inactive amlodipine 5 mg tablet RxNorm: 779322 1 Tablet(s) PO QD 08/25/2018 Inactive amlodipine 5 mg tablet RxNorm: 594632 1 Tablet(s) PO QD 08/25/2018 Inactive lisinopril 40 mg tablet RxNorm: 909344 TAKE 1 TABLET BY MOUTH O NCE DAILY 07/21/2018 08/24/2018 Inactive fenofibrate micronized 134 mg capsule RxNorm: 738741 TA KE 1 CAPSULE BY MOUTH ONCE DAILY FOR TRIGLYCERIDES 07/12/2018 10/10/2018 Inactive propranolol ER 80 mg capsule,24 hr,extended release RxNorm: 700079 TAKE 1 CAPSULE BY MOUTH ONCE DAILY 06/21/2018 09/20/2018 Inactive lisinopril 40 mg tablet RxNorm: 208754 TAKE 1 TABLET BY MOUTH O NCE DAILY 04/26/2018 07/20/2018 Inactive metformin ER 500 mg tablet,extended release 24 hr RxNorm: 926166 1 Tablet(s) QD 03/31/2018 09/20/2018 Inactive lisinopril 40 mg tablet RxNorm: 752199 TAKE 1 TABLET BY MOUTH O NCE DAILY 01/28/2018 04/25/2018 Inactive Vitamin D3 5,000 unit tablet RxNorm: 973095 1 Tablet(s) PO QD 01/1908/18/2018 Inactive fenofibrate micronized 134 mg capsule RxNorm: 919388 1 Capsule(s) PO QD for triglycerides 01/19/2018 07/11/2018 Inactive metformin ER 500 mg tablet,extended release 24 hr RxNorm: 545029 1 Tablet(s) QD 12/31/2017 03/30/2018 Inactive metformin ER 500 mg tablet,extended release 24 hr RxNorm: 708567 Tablet(s) 12/30/2017 12/30/2017 Inactive propranolol ER 80 mg capsule,24 hr,extended release RxNorm: 353482 1 Capsule(s) PO QD 12/17/2017 06/14/2018 Inactive metformin ER 500 mg tablet,extended release 24 hr RxNorm: 86 0975 1 Tablet(s) PO QD DUE FOR LABS AND APPT 12/02/2017 12/30/2017 Inactive Crestor 10 mg tablet RxNorm: 884544 TAKE ONE TABLET BY MOUTH ON CE DAILY 11/01/2017 01/18/2018 Inactive lisinopril 40 mg tablet RxNorm: 854172 TAKE ONE TABLET BY MOUTH ONCE DAILY [...] ER 80 mg capsule,24 hr,extended release RxNorm: 882540 1 Capsule(s) PO QD DUE FOR APPT 09/08/2017 12/17/2017 Inactive Crestor 10 mg tablet RxNorm: 827985 1 Tablet(s) PO QD T CHELSI ONE TABLET BY MOUTH DAILY 03/11/2017 09/06/2017 Inactive propranolol ER 80 mg capsule,24 hr,extended release RxNorm: 354711 1 Capsule(s) PO QD TAKE ONE CAPSULE BY MOUTH DAILY - REPLACES AMLODOPINE 03/11/2017 09/08/2017 Inactive metformin ER 500 mg tablet,extended release 24 hr RxNorm: 86 0975 1 Tablet(s) PO QD 03/11/2017 09/08/2017 Inactive lisinopril 40 mg tablet RxNorm: 964199 1 Tablet(s) PO QD 03/11/2017 0 09/06/2017 Inactive lisinopril 40 mg tablet RxNorm: 744860 1 Tablet(s) PO QD 02/16/2017 1 05/11/2016 Inactive metformin ER 500 mg tablet,extended release 24 hr RxNorm: 86 0975 1 Tablet(s) PO QD Due for labs and follow up before further refills 02/16/2017 017 Inactive propranolol ER 80 mg capsule,24 hr,extended release RxNorm: 890515 Capsule(s) TAKE ONE CAPSULE BY MOUTH DAILY - REPLACES AMLODOPINE 11/19/20162016 Inactive lisinopril 40 mg tablet RxNorm: 116538 1 Tablet(s) PO QD 11/17/2016 1 04/18/2016 Inactive metformin ER 500 mg tablet,extended release 24 hr RxNorm: 86 0975 1 Tablet(s) PO QD 11/17/2016 02/16/2017 Inactive lisinopril 40 mg tablet RxNorm: 297065 1 Tablet(s) PO Q D TAKE ONE TABLET BY MOUTH DAILY 08/19/2016 11/17/2016 Inactive metformin ER 500 mg tablet,extended release 24 hr RxNorm: 86 0975 Tablet(s) TAKE ONE TABLET BY MOUTH DAILY 08/19/2016 11/16/2016 Inactive propranolol ER 80 mg capsule,24 hr,extended release RxNorm: 621989 Capsule(s) TAKE ONE CAPSULE BY MOUTH DAILY - REPLACES AMLODOPINE 08/19/20162016 Inactive Crestor 10 mg tablet RxNorm: 900003 TAKE ONE TABLET BY MOUTH DAILY 06/16/2016 03/10/2017 Inactive lisinopril 40 mg tablet RxNorm: 061376 1 Tablet(s) PO Q D TAKE ONE TABLET BY MOUTH DAILY 05/23/2016 08/18/2016 Inactive metformin ER 500 mg tablet,extended release 24 hr RxNorm: 86 0975 TAKE ONE TABLET BY MOUTH DAILY 05/23/2016 08/19/2016 Inactive propranolol ER 80 mg capsule,24 hr,extended release RxNorm: 302473 TAKE ONE CAPSULE BY MOUTH DAILY - REPLACES AMLODOPINE 05/23/2016 08/19/2016 Yvonne ctive Crestor 10 mg tablet RxNorm: 326702 TAKE ONE TABLET BY MOUTH DAILY 03/31/2016 06/15/2016 Inactive metformin ER 500 mg tablet,extended release 24 hr RxNorm: 86 0975 TAKE ONE TABLET BY MOUTH DAILY 02/19/2016 05/22/2016 Inactive propranolol ER 80 mg capsule,24 hr,extended release RxNorm: 782698 TAKE ONE CAPSULE BY MOUTH DAILY - REPLACES AMLODOPINE 11/23/2015 05/20/2016 Yvonne ctive metformin ER 500 mg tablet,extended release 24 hr RxNorm: 86 0975 TAKE ONE TABLET BY MOUTH DAILY 11/08/2015 02/05/2016 Inactive Bactroban Nasal 2 % ointment RxNorm: 754859 Apply topic ally to affected area twice daily 09/10/2015 03/09/2016 Inactive Vibramycin 100 mg capsule RxNorm: 029616 1 Capsule(s) PO BID 201509/23/2015 Inactive lisinopril 40 mg tablet RxNorm: 115988 1 Tablet(s) PO Q D TAKE ONE TABLET BY MOUTH DAILY 08/27/2015 02/22/2016 Inactive metformin ER 500 mg tablet,extended release 24 hr RxNorm: 86 0975 TAKE ONE TABLET BY MOUTH DAILY 08/06/2015 11/03/2015 Inactive Levsin/SL 0.125 mg sublingual tablet RxNorm: 7075960 1 T ablet(s) SL Q4H as needed for stomach cramps 06/29/2015 07/03/2015 Inactive lisinopril 40 mg tablet RxNorm: 546784 Tablet(s) TAKE ONE TABLE T BY MOUTH DAILY 06/07/2015 08/26/2015 Inactive propranolol ER 80 mg capsule,24 hr,extended release RxNorm: 373878 TAKE ONE CAPSULE BY MOUTH DAILY - REPLACES AMLODOPINE 05/30/2015 11/22/2015 Yvonne ctive metformin ER 500 mg tablet,extended release 24 hr RxNorm: 86 0975 1 Tablet(s) PO QD 05/10/2015 08/05/2015 Inactive Crestor 10 mg tablet RxNorm: 052044 TAKE ONE TABLET BY MOUTH DAILY 04/18/2015 10/14/2015 Inactive metformin ER 500 mg tablet,extended release 24 hr RxNorm: 86 0975 TAKE ONE TABLET BY MOUTH DAILY 02/07/2015 05/10/2015 Inactive sildenafil 20 mg tablet RxNorm: 517610 1 Tablet(s) PO QD 01/17/2015 1 04/17/2014 Inactive propranolol ER 80 mg capsule,24 hr,extended release RxNorm: 156765 1 Capsule(s) PO QD replaces amlodopine 11/28/2014 05/26/2015 Inactive [SALINASIN GS FOR UNINSURED PATIENTS -- BIN:[id number], PCN: [id number], Group: [id number], ID# [id number], Process claim through [employer], for questions: . THIS IS NOT INSURANCE.] lisinopril 40 mg tablet RxNorm: 283516 TAKE ONE TABLET BY MOUTH DAILY 11/16/2014 06/07/2015 Inactive lisinopril 40 mg tablet RxNorm: 969212 1 Tablet(s) PO QD 08/21/2014 0 11/15/2014 Inactive [AttnRPh: Saving apply/adjudicate RxGRP: SG20 RxBIN:[id number] RxPCN: ID#:[id number]] lisinopril 40 mg tablet RxNorm: 960146 1 Tablet(s) PO Q D NEEDS SEEN FOR APPOINTMENT 07/14/2014 08/21/2014 Inactive [AttnRPh: Saving apply/adjudicate RxGRP:SG20 RxBIN:[id number] RxPCN: ID#:[id number]] Crestor 10 mg tablet RxNorm: 680010 TAKE ONE TABLET BY MOUTH 07/06/2014 01/01/2015 Inactive metformin ER 500 mg tablet,extended release 24 hr RxNorm: 86 0975 1 Tablet(s) QD TAKE ONE TABLET BY MOUTH ONCE A DAY 06/09/2014 12/05/2014 Inactive propranolol ER 80 mg capsule,24 hr,extended release RxNorm: 274663 1 Capsule(s) PO QD replaces amlodopine 06/05/2014 11/28/2014 Inactive [SAVIN GS FOR UNINSURED PATIENTS -- BIN:[id number], PCN: [id number], Group: [id number], ID# [id number], Process claim through [employer], for questions: . THIS IS NOT INSURANCE.] propranolol ER 80 mg capsule,24 hr,extended release RxNorm: 318881 1 Capsule(s) PO QD replaces amlodopine 03/07/2014 06/05/2014 Inactive [SAVIN GS FOR UNINSURED PATIENTS -- BIN:856384, PCN: [id number], Group: [id number], ID# [id number], Process claim through [employer], for questions: . THIS IS NOT INSURANCE.] metformin ER 500 mg tablet,extended release 24 hr RxNorm: 86 0975 TAKE ONE TABLET BY MOUTH ONCE A DAY 12/15/2013 06/09/2014 Inactive propranolol ER 80 mg capsule,24 hr,extended release RxNorm: 879905 1 Capsule(s) PO QD replaces amlodopine 12/09/2013 03/07/2014 Inactive [NICOLAS FOR UNINSURED PATIENTS -- BIN:763346, PCN: [id number], Group: [id number], ID# [id number], Process claim through [employer], for questions: . THIS IS NOT INSURANCE.] acyclovir 800 mg tablet RxNorm: 797565 1 Tablet(s) PO QID 09/23/2013 09/29/2013 Inactive gabapentin 300 mg capsule RxNorm: 378031 1 Capsule(s) PO BID 201310/07/2013 Inactive metformin ER 500 mg tablet,extended release 24 hr RxNorm: 86 0975 1 Tablet(s) PO QD 09/19/2013 12/14/2013 Inactive propranolol ER 80 mg capsule,24 hr,extended release RxNorm: 383464 1 Capsule(s) PO QD replaces amlodopine 09/15/2013 12/09/2013 Inactive metformin ER 500 mg 24 hr tablet,extended release RxNorm: 86 0975 1 Tablet(s) PO QD 09/15/2013 09/18/2013 Inactive lisinopril 40 mg tablet RxNorm: 101372 1 Tablet(s) PO QD 07/19/2013 0 07/14/2014 Inactive Crestor 10 mg tablet RxNorm: 829672 Tablet(s) PO TAKE O NE TABLET BY MOUTH EVERY DAY 07/12/2013 07/05/2014 Inactive propranolol ER 80 mg capsule,24 hr,extended release RxNorm: 154089 1 Capsule(s) PO QD replaces amlodopine 06/20/2013 09/15/2013 Inactive triamcinolone acetonide 0.1 % topical ointment RxNorm: 65832 36 Application TOP BID 06/20/2013 06/26/2013 Inactive Crestor 10 mg tablet RxNorm: 945941 1 Tablet(s) PO QD 04/18/201310/2013 Inactive Viagra 100 mg tablet RxNorm: 920176 1 Tablet(s) PO as directed 01/0508/18/2018 Inactive TAKE ONE TABLET BY MOUTH DIRECTED Crestor 10 mg tablet RxNorm: 559934 1 Tablet(s) PO QD 01/17/201304/06 Inactive metformin ER 500 mg tablet,extended release 24 hr RxNorm: 86 0975 1 Tablet(s) PO QD TAKE ONE TABLET BY MOUTH EVERY DAY 12/23/2012 09/15/2013 Inactive triamcinolone acetonide 0.1 % topical ointment RxNorm: 88426 36 Application TOP BID 08/27/2012 09/02/2012 Inactive ketoconazole 2 % topical cream RxNorm: 416770 1 Application TOP QAM 08/27/2012 09/02/2012 Inactive lisinopril 40 mg tablet RxNorm: 801850 1 Tablet(s) PO QD 07/21/2012 0 07/15/2013 Inactive Crestor 10 mg tablet RxNorm: 847814 1 Tablet(s) PO QD 07/21/201210/04 Inactive amlodipine 10 mg tablet RxNorm: 333557 1 Tablet(s) PO QHS 07/21/2012 07/15/2013 Inactive metformin ER 500 mg tablet,extended release 24 hr RxNorm: 86 0977 Tablet(s) PO TAKE ONE TABLET BY MOUTH EVERY DAY 03/31/2012 12/22/2012 Inactive lisinopril 40 mg tablet RxNorm: 055645 1 Tablet(s) PO QD 07/29/2011 0 07/20/2012 Inactive amlodipine 10 mg tablet RxNorm: 773023 1 Tablet(s) PO QHS 07/29/2011 07/20/2012 Inactive amlodipine 10 mg Tab RxNorm: 679342 1 Tablet(s) PO QHS 07/29/2011 Inactive Viagra 100 mg tablet RxNorm: 435416 1 Tablet(s) PO as directed 07/0601/24/2013 Inactive TAKE ONE TABLET BY MOUTH DIRECTED Crestor 10 mg tablet RxNorm: 563283 1 Tablet(s) PO QD 07/29/201107/05 Inactive Norvasc 5 mg Tab RxNorm: 184916 1 Tablet(s) PO QD 07/16/2011 07/28/19 Inactive Norvasc 5 mg Tab RxNorm: 325586 1 Tablet(s) PO QD 06/26/2011 07/15/19 12 Inactive lisinopril 40 mg Tab RxNorm: 507040 1 Tablet(s) PO QD 05/13/201107/06 Inactive metformin ER 500 mg tablet,extended release 24 hr RxNorm: 86 0977 1 Tablet(s) PO QD 03/18/2011 07/28/2011 Inactive Crestor 10 mg Tab RxNorm: 340127 1 Tablet(s) PO QHS 01/27/20112011 Inactive metformin ER 500 mg 24 hr Tab RxNorm: 264075 1 Tablet(s) PO QD 11/0403/17/2011 Inactive Viagra 100 mg Tab RxNorm: 286317 Tablet(s) PO TAKE ON E TABLET BY MOUTH DIRECTED 08/26/2010 07/28/2011 Inactive metformin ER 500 mg 24 hr Tab RxNorm: 589813 1 Tablet(s) PO QD 07/0611/18/2010 Inactive Crestor 10 mg Tab RxNorm: 949198 1 Tablet(s) PO QHS 07/30/20102010 Inactive Crestor 10 mg Tab RxNorm: 847820 1 Tablet(s) PO QHS 05/20/20102010 Inactive Wellbutrin SR 150 mg Tab RxNorm: 769097 1 Tablet(s) PO QAM 04/24/19 11 07/22/2010 Inactive Multivitamin And Mineral tablet RxNorm: 1 Tablet(s) PO QD No Start Date Active FreeStyle Lite Strips RxNorm: 1 Unit Dose Miscel laneous AC & HS check blood sugar AC and HS No Start Date Active Co Q-10 200 mg capsule RxNorm: 628541 1 Capsule(s) PO QD No Start Date Active lancets RxNorm: 1 Milliliter(s) Miscellaneous AC & HS No Start Robert e Active Vitamin D3 4,000 unit capsule RxNorm: 6757441 1 Capsule(s) PO QD No Start Date 07/08/2016 Inactive Fish Oil 360 mg-1,200 mg capsule RxNorm: 585940 2 Capsule(s) PO QD No Start Date 01/30/2019 Inactive hydrocodone 5 mg-acetaminophen 325 mg tablet RxNorm: 657266 1 Tablet(s) PO Q4H as needed for severe pain No Start Date 12/30/2015 Inactive Xanax 0.25 mg tablet RxNorm: 702380 1/2 Tablet(s) PO PRN for se andrea stress No Start Date 07/08/2016 Inactive lisinopril 40 mg Tab RxNorm: 000617 1 Tablet(s) PO QD No Start Date 0 05/12/2011 Inactive Fish Oil 1,000 mg capsule RxNorm: 1 Capsule(s) PO QD No Start Date 09/18/2014 Inactive naproxen 500 mg Tab RxNorm: 401178 1 Tablet(s) PO BID No Start Date 0 07/28/2011 Inactive aspirin 81 mg tablet RxNorm: 833952 1 Tablet(s) PO QD No Start Date 0 05/09/2018 Inactive Crestor 10 mg Tab RxNorm: 989976 1 Tablet(s) PO QD No Start Date 07/06 Inactive Crestor 5 mg tablet RxNorm: 062105 1 Tablet(s) PO QD No Start Date Inactive Fish Oil Oral RxNorm: Oral No Start Date 09/18/2014 Inactive Viagra 100 mg Tab RxNorm: 962161 1 Tablet(s) PO as directed No Star [...] Code Item Item Code Result Date S [facility] Location GLYCOSYLATED HEMOGLOBIN TEST 70008 Hgb A1c 64426-4 6.6 % 0 08/24/2019 Unknown MEAN GLUC 9797286 Calc Mean Gluc 143 mg/dL 08/24/2019 Unkn own COMPREHENSIVE METABOLIC 42889 AST 24 U/L 2019 Unknown COMPREHENSIVE METABOLIC 52456 ALT 32 U/L 2019 Unknown COMPREHENSIVE METABOLIC 32286 BUN 14 mg/dL 2019 Unknown COMPREHENSIVE METABOLIC 01798 ALBUMIN 4.7 g/dL 2019 Unknown COMPREHENSIVE METABOLIC 19057 CHLORIDE 103 mmol/L 08/23 Unknown COMPREHENSIVE METABOLIC 58566 Bili Total 0.5 mg/dL 08/23 Unknown COMPREHENSIVE METABOLIC 16582 ALK PHOS 57 U/L 2019 Unknown COMPREHENSIVE METABOLIC 25979 SODIUM 140 mmol/L 08/23 Unknown COMPREHENSIVE METABOLIC 37744 CREATININE 1.20 mg/dL 08/05 Unknown COMPREHENSIVE METABOLIC 31149 CALCIUM 9.9 mg/dL 2019 Unknown COMPREHENSIVE METABOLIC 44688 POTASSIUM 4.4 mmol/L 08/23 Unknown COMPREHENSIVE METABOLIC 12963 Total Protein 6.9 g/dL Unknown COMPREHENSIVE METABOLIC 74846 Glucose 123 mg/dL 2019 Unknown COMPREHENSIVE METABOLIC 68840 Bicarbonate 25 mmol/L 08/05 Unknown COMPREHENSIVE METABOLIC 69060 AGAP 12 mmol/L 2019 Unknown GFR CALC 0282028 GFR Afr Amr >60 mL/min 08/24/2019 Unknow n GFR CALC 2041150 GFR Non Afr Amr 60 mL/min 08/24/2019 Unk nown GLYCOSYLATED HEMOGLOBIN TEST 27574 Hgb A1c 93744-5 6.7 % 0 05/24/2019 Unknown COMPREHENSIVE METABOLIC 58123 AST 21 U/L 2019 Unknown COMPREHENSIVE METABOLIC 51180 ALT 26 U/L 2019 Unknown COMPREHENSIVE METABOLIC 77704 BUN 14 mg/dL 2019 Unknown COMPREHENSIVE METABOLIC 24041 ALBUMIN 4.4 g/dL 2019 Unknown COMPREHENSIVE METABOLIC 07142 CHLORIDE 102 mmol/L 05/24 Unknown COMPREHENSIVE METABOLIC 56722 Bili Total 0.4 mg/dL 05/24 Unknown COMPREHENSIVE METABOLIC 27515 ALK PHOS 55 U/L 2019 Unknown COMPREHENSIVE METABOLIC 14357 SODIUM 139 mmol/L 05/24 Unknown COMPREHENSIVE METABOLIC 90698 CREATININE 1.28 mg/dL 05/07 Unknown COMPREHENSIVE METABOLIC 49610 CALCIUM 9.7 mg/dL 2019 Unknown COMPREHENSIVE METABOLIC 50940 POTASSIUM 4.7 mmol/L 05/24 Unknown COMPREHENSIVE METABOLIC 69836 Total Protein 6.8 g/dL Unknown COMPREHENSIVE METABOLIC 17514 Glucose 130 mg/dL 2019 Unknown COMPREHENSIVE METABOLIC 58066 Bicarbonate 29 mmol/L 05/07 Unknown COMPREHENSIVE METABOLIC 76461 AGAP 8 mmol/L 2019 Unknown MEAN GLUC 8289989 Calc Mean Gluc 146 mg/dL 05/24/2019 Unkn own GFR CALC 8731228 GFR Afr Amr >60 mL/min 05/24/2019 Unknow n GFR CALC 7100097 GFR Non Afr Amr 56 mL/min 05/24/2019 Unk nown MEAN GLUC 7000217 Calc Mean Gluc 140 mg/dL 01/26/2019 Unkn own GLYCOSYLATED HEMOGLOBIN TEST 77919 Hgb A1c 44578-7 6.5 % 1 Unknown COMPREHENSIVE METABOLIC 60802 AST 17 U/L 2018 Unknown COMPREHENSIVE METABOLIC 66568 ALT 19 U/L 2018 Unknown COMPREHENSIVE METABOLIC 76674 BUN 19 mg/dL 2018 Unknown COMPREHENSIVE METABOLIC 34250 ALBUMIN 4.3 g/dL 2018 Unknown COMPREHENSIVE METABOLIC 50218 CHLORIDE 103 mmol/L 01/26 Unknown COMPREHENSIVE METABOLIC 03143 Bili Total 0.6 mg/dL 01/26 Unknown COMPREHENSIVE METABOLIC 65617 ALK PHOS 60 U/L 2018 Unknown COMPREHENSIVE METABOLIC 60787 SODIUM 140 mmol/L 01/26 Unknown COMPREHENSIVE METABOLIC 10657 CREATININE 1.21 mg/dL 01/05 Unknown COMPREHENSIVE METABOLIC 97434 CALCIUM 9.6 mg/dL 2018 Unknown COMPREHENSIVE METABOLIC 23217 POTASSIUM 4.5 mmol/L 01/26 Unknown COMPREHENSIVE METABOLIC 55032 Total Protein 6.7 g/dL Unknown COMPREHENSIVE METABOLIC 51740 Glucose 111 mg/dL 2018 Unknown COMPREHENSIVE METABOLIC 15943 Bicarbonate 28 mmol/L 01/05 Unknown COMPREHENSIVE METABOLIC 98548 AGAP 9 mmol/L 2018 Unknown COMPLETE BLOOD COUNT 7069505 WBC 10.7 10e9/L 019 Unknown COMPLETE BLOOD COUNT 7673286 RBC 4.38 10e12/L 2018 Unknown COMPLETE BLOOD COUNT 8448938 HEMOGLOBIN 13.7 g/dL 01/27/20 19 Unknown COMPLETE BLOOD COUNT 8770135 HEMATOCRIT 42.0 % 01/27/20 19 Unknown COMPLETE BLOOD COUNT 1822916 MCV 95.9 fL 9 Unknown COMPLETE BLOOD COUNT 4811297 MCH 31.3 pg 9 Unknown COMPLETE BLOOD COUNT 4548144 MCHC 32.6 g/dL 9 Unknown COMPLETE BLOOD COUNT 8008579 PLATELET COUNT 232 10e9/L Unknown COMPLETE BLOOD COUNT 0110571 Mean Plt Volume 11.4 fL Unknown COMPLETE BLOOD COUNT 9939798 Neut Auto 68.7 % 9 Unknown COMPLETE BLOOD COUNT 2565733 Lymph Auto 21.2 % 01/27/20 19 Unknown COMPLETE BLOOD COUNT 4213335 [place] Auto 8.1 % 9 Unknown COMPLETE BLOOD COUNT 0827621 Eos Auto 1.8 % 9 Unknown COMPLETE BLOOD COUNT 1021641 RDW 14.1 % 9 Unknown COMPLETE BLOOD COUNT 5728908 Baso Auto 0.2 % 9 Unknown COMPLETE BLOOD COUNT 9271982 Neutrophil Abs 7.35 10e9/L Unknown COMPLETE BLOOD COUNT 2366142 Lymphocyte Abs 2.27 10e9/L Unknown COMPLETE BLOOD COUNT 5302294 Monocyte Abs 0.87 10e9/L 01/05 Unknown COMPLETE BLOOD COUNT 2483008 Eosinophil Abs 0.19 10e9/L Unknown COMPLETE BLOOD COUNT 9514489 RDW-SD 47.7 fL 9 Unknown COMPLETE BLOOD COUNT 3905984 Basophil Abs 0.02 10e9/L 01/05 Unknown GFR CALC 6121537 GFR Afr Amr >60 mL/min 01/26/2019 Unknow n GFR CALC 3099005 GFR Non Afr Amr 59 mL/min 01/26/2019 Unk nown LIPID GROUP 61546 Cholesterol 215 mg/dL 01/26/2019 Unkno wn LIPID GROUP 11059 Triglyceride 221 mg/dL 01/26/2019 Unkn own LIPID GROUP 10377 HDL CHOLESTEROL 41 mg/dL 01/26/2019 U nknown LIPID GROUP 05330 Chol/HDL Ratio 5.24 ratio 01/26/2019 U nknown LIPID GROUP 19672 NON-HDL Chol 174 mg/dL 01/26/2019 Unkn own LIPID GROUP 34361 LDL Cholesterol 130 mg/dL 01/26/2019 [place] [address] Glucose 104 mg/dL 09/30 [place] [address] CREATININE 1.18 mg/dL [place] [address] BUN 19 mg/dL 09/30 [place] [address] SODIUM 139 mmol/L 09/05 [place] [address] POTASSIUM 4.1 mmol/L 09/05 [place] [address] CHLORIDE 105 mmol/L 09/05 [place] [address] Bicarbonate 26 mmol/L [place] [address] AGAP 8 mmol/L 09/30 [place] [address] CALCIUM 9.3 mg/dL 09/30 Unknown GFR CALC 9231283 GFR Non Afr Amr >60 mL/min 09/30/2018 Un known GFR CALC 9426484 GFR Afr Amr >60 mL/min 09/30/2018 Unknow n MICROALBUMIN URINE RANDOM 14546 U Microalbumin <2.0 mg/L 08/19/2018 Unknown MICROALBUMIN URINE RANDOM 88576 U Creatinine 66 mg/dL 0 08/19/2018 Unknown MICROALBUMIN URINE RANDOM 10827 ALB/CR Ratio <3.0 mg/gCR 08/19/2018 Unknown COMPREHENSIVE METABOLIC 89369 AST 21 U/L 2018 Unknown COMPREHENSIVE METABOLIC 65300 ALT 20 U/L 2018 Unknown COMPREHENSIVE METABOLIC 52872 BUN 31 mg/dL 2018 Unknown COMPREHENSIVE METABOLIC 54799 ALBUMIN 4.4 g/dL 2018 Unknown COMPREHENSIVE METABOLIC 60181 CHLORIDE 105 mmol/L 08/16 Unknown COMPREHENSIVE METABOLIC 53857 Bili Total 0.5 mg/dL 08/16 Unknown COMPREHENSIVE METABOLIC 27435 ALK PHOS 40 U/L 2018 Unknown COMPREHENSIVE METABOLIC 27078 SODIUM 140 mmol/L 08/16 Unknown COMPREHENSIVE METABOLIC 09305 CREATININE 1.45 mg/dL 08/04 Unknown COMPREHENSIVE METABOLIC 57746 CALCIUM 9.8 mg/dL 2018 Unknown COMPREHENSIVE METABOLIC 18419 POTASSIUM 5.1 mmol/L 08/16 Unknown COMPREHENSIVE METABOLIC 69130 Total Protein 6.9 g/dL Unknown COMPREHENSIVE METABOLIC 73621 Glucose 110 mg/dL 2018 Unknown COMPREHENSIVE METABOLIC 94421 Bicarbonate 25 mmol/L 08/04 Unknown COMPREHENSIVE METABOLIC 71455 AGAP 10 mmol/L 2018 Unknown GFR CALC [id number] GFR Non Afr Amr 48 mL/min 08/16/2018 Unk nown GFR CALC [id number] GFR Afr Amr 58 mL/min 08/16/2018 Unknown GLYCOSYLATED HEMOGLOBIN TEST 45326 Hgb A1c 98587-4 5.9 % 0 08/16/2018 Unknown LIPID GROUP 71806 Cholesterol 226 mg/dL 08/16/2018 Unkno wn LIPID GROUP 87780 Triglyceride 335 mg/dL 08/16/2018 Unkn own LIPID GROUP 28660 HDL CHOLESTEROL 32 mg/dL 08/16/2018 U nknown LIPID GROUP 44375 Chol/HDL Ratio 7.06 ratio 08/16/2018 U nknown LIPID GROUP 39262 NON-HDL Chol 194 mg/dL 08/16/2018 Unkn own LIPID GROUP 14997 LDL Cholesterol 127 mg/dL 08/16/2018 U nknown THYROID STIMULATING HORMONE 56595 TSH 2.475 uIU/mL 08/16/2018 Unknown COMPLETE BLOOD COUNT [id number] WBC 7.5 10e9/L 08/17/19 19 Unknown COMPLETE BLOOD COUNT [id number] RBC 4.09 10e12/L 2018 Unknown COMPLETE BLOOD COUNT [id number] HEMOGLOBIN 12.9 g/dL 08/17/19 19 Unknown COMPLETE BLOOD COUNT [id number] HEMATOCRIT 40.0 % 08/17/19 19 Unknown COMPLETE BLOOD COUNT [id number] MCV 97.8 fL 9 Unknown COMPLETE BLOOD COUNT [id number] MCH 31.5 pg 9 Unknown COMPLETE BLOOD COUNT [id number] MCHC 32.3 g/dL 9 Unknown COMPLETE BLOOD COUNT [id number] PLATELET COUNT 258 10e9/L Unknown COMPLETE BLOOD COUNT 8047990 Mean Plt Volume 11.4 fL Unknown COMPLETE BLOOD COUNT 7868954 Neut Auto 62.9 % 9 Unknown COMPLETE BLOOD COUNT 1260015 Lymph Auto 27.3 % 08/17/19 19 Unknown COMPLETE BLOOD COUNT [id number] [place] Auto 8.2 % 9 Unknown COMPLETE BLOOD COUNT 6706805 Eos Auto 1.5 % 9 Unknown COMPLETE BLOOD COUNT 8606549 RDW 13.3 % 9 Unknown COMPLETE BLOOD COUNT [id number] Baso Auto 0.1 % 9 Unknown COMPLETE BLOOD COUNT [id number] Neutrophil Abs 4.72 10e9/L Unknown COMPLETE BLOOD COUNT [id number] Lymphocyte Abs 2.05 10e9/L Unknown COMPLETE BLOOD COUNT [id number] Monocyte Abs 0.62 10e9/L 08/04 Unknown COMPLETE BLOOD COUNT [id number] Eosinophil Abs 0.11 10e9/L Unknown COMPLETE BLOOD COUNT [id number] RDW-SD 46.7 fL 9 Unknown COMPLETE BLOOD COUNT [id number] Basophil Abs 0.01 10e9/L 08/04 Unknown MEAN GLUC [id number] Calc Mean Gluc 123 mg/dL 08/16/2018 Unkn own LIPID GROUP 69123 Cholesterol 212 mg/dL 05/05/2018 [facility] w[facility] 56226 Triglyceride 271 mg/dL 05/05/2018 [facility] own [facility] 78091 HDL CHOLESTEROL 38 mg/dL 05/05/2018 U nknown LIPID GROUP 24269 Chol/HDL Ratio 5.58 ratio 05/05/2018 U nknown LIP[facility] GROUP 61052 NON-HDL Chol 174 mg/dL 05/05/2018 [facility] own LIP[facility] GROUP 73668 LDL Cholesterol 120 mg/dL 05/05/2018 U nknown GFR CALC 3379696 GFR Non Afr Amr 49 mL/min 05/05/2018 Unk nown GFR CALC 1912748 GFR Afr Amr 59 mL/min 05/05/2018 Unknown GLYCOSYLATED HEMOGLOBIN TEST 35739 Hgb A1c 90577-3 6.0 % 0 05/05/2018 Unknown MEAN GLUC 1806908 Calc Mean Gluc 126 mg/dL 05/05/2018 Unkn own COMPREHENSIVE METABOLIC 24607 AST 18 U/L 2018 Unknown COMPREHENSIVE METABOLIC 64871 ALT 23 U/L 2018 Unknown COMPREHENSIVE METABOLIC 04999 BUN 30 mg/dL 2018 Unknown COMPREHENSIVE METABOLIC 99158 ALBUMIN 4.3 g/dL 2018 Unknown COMPREHENSIVE METABOLIC 77387 CHLORIDE 106 mmol/L 05/05 Unknown COMPREHENSIVE METABOLIC 95281 Bili Total 0.4 mg/dL 05/05 Unknown COMPREHENSIVE METABOLIC 20406 ALK PHOS 39 U/L 2018 Unknown COMPREHENSIVE METABOLIC 00312 SODIUM 139 mmol/L 05/05 Unknown COMPREHENSIVE METABOLIC 93562 CREATININE 1.44 mg/dL 04/08 Unknown COMPREHENSIVE METABOLIC 99421 CALCIUM 9.6 mg/dL 2018 Unknown COMPREHENSIVE METABOLIC 36292 POTASSIUM 4.7 mmol/L 05/05 Unknown COMPREHENSIVE METABOLIC 49272 Total Protein 6.6 g/dL Unknown COMPREHENSIVE METABOLIC 09624 Glucose 112 mg/dL 2018 Unknown COMPREHENSIVE METABOLIC 34213 Bicarbonate 28 mmol/L 04/08 Unknown COMPREHENSIVE METABOLIC 21469 AGAP 5 mmol/L 2018 Unknown THYROID STIMULATING HORMONE 39602 TSH 3.725 uIU/mL 05/05/2018 Unknown COMPLETE BLOOD COUNT 8272267 WBC 8.2 10e9/L 05/05/19 19 Unknown COMPLETE BLOOD COUNT [id number] RBC 4.02 10e12/L 2018 Unknown COMPLETE BLOOD COUNT 8931045 HEMOGLOBIN 12.7 g/dL 05/05/19 19 Unknown COMPLETE BLOOD COUNT [id number] HEMATOCRIT 39.3 % 05/05/19 19 Unknown COMPLETE BLOOD COUNT [id number] MCV 97.8 fL 9 Unknown COMPLETE BLOOD COUNT 2749579 MCH 31.6 pg 9 Unknown COMPLETE BLOOD COUNT 4010938 MCHC 32.3 g/dL 9 Unknown COMPLETE BLOOD COUNT [id number] PLATELET COUNT 213 10e9/L Unknown COMPLETE BLOOD COUNT 5282711 Mean Plt Volume 11.7 fL Unknown COMPLETE BLOOD COUNT 2416052 Neut Auto 55.7 % 9 Unknown COMPLETE BLOOD COUNT 4137784 Lymph Auto 33.2 % 05/05/19 19 Unknown COMPLETE BLOOD COUNT 8564132 [place] Auto 8.5 % 9 Unknown COMPLETE BLOOD COUNT 1132815 Eos Auto 2.4 % 9 Unknown COMPLETE BLOOD COUNT 8883895 RDW 13.9 % 9 Unknown COMPLETE BLOOD COUNT 6682248 Baso Auto 0.2 % 9 Unknown COMPLETE BLOOD COUNT 1157094 Neutrophil Abs 4.57 10e9/L Unknown COMPLETE BLOOD COUNT 1149634 Lymphocyte Abs 2.72 10e9/L Unknown COMPLETE BLOOD COUNT 0734018 Monocyte Abs 0.70 10e9/L 04/08 Unknown COMPLETE BLOOD COUNT 2979793 Eosinophil Abs 0.20 10e9/L Unknown COMPLETE BLOOD COUNT [id number] Basophil Abs 0.02 10e9/L 04/08 Unknown COMPLETE BLOOD COUNT [id number] RDW-SD 48.8 fL 9 Unknown MICROALBUMIN URINE RANDOM 37491 U Microalbumin 19.3 mg/L 01/19/2018 Unknown MICROALBUMIN URINE RANDOM 16445 U Creatinine 96 mg/dL 1 Unknown MICROALBUMIN URINE RANDOM 03302 ALB/CR Ratio 20.1 mg/gCR 01/19/2018 Unknown LIPID GROUP 05815 Cholesterol 173 mg/dL 01/13/2018 [facility] 65052 Triglyceride 386 mg/dL 01/13/2018 [facility] own L[facility] 35908 HDL CHOLESTEROL 37 mg/dL 01/13/2018 U nknown LIPID GROUP 53243 Chol/HDL Ratio 4.68 ratio 01/13/2018 U nknown LIP[facility] GROUP 57365 NON-HDL Chol 136 mg/dL 01/13/2018 [facility] own LIP[facility] GROUP 96726 LDL Cholesterol 59 mg/dL 01/13/2018 U nknown COMPLETE BLOOD COUNT 1116763 WBC TNP:Client Request 01/13/2018 Unknown COMPLETE BLOOD COUNT 1071439 RBC TNP:Client Request 01/13/2018 Unknown COMPLETE BLOOD COUNT [id number] HEMOGLOBIN TNP:Client Request 01/13/2018 Unknown COMPLETE BLOOD COUNT 3780817 HEMATOCRIT TNP:Client Request 01/13/2018 Unknown COMPLETE BLOOD COUNT [id number] MCV TNP:Client Request 01/13/2018 Unknown COMPLETE BLOOD COUNT 2940636 MCH TNP:Client Request 01/13/2018 Unknown COMPLETE BLOOD COUNT 1373049 MCHC TNP:Client Request 01/13/2018 Unknown COMPLETE BLOOD COUNT [id number] PLATELET COUNT TNP:Client Req uest 01/13/2018 Unknown COMPLETE BLOOD COUNT 9726063 Mean Plt Volume TNP:Client Re quest 01/13/2018 Unknown COMPLETE BLOOD COUNT 0770401 Neut Auto TNP:Client Request 01/13/2018 Unknown COMPLETE BLOOD COUNT [id number] Lymph Auto TNP:Client Request 01/13/2018 Unknown COMPLETE BLOOD COUNT [id number] [place] Auto TNP:Client Request 01/13/2018 Unknown COMPLETE BLOOD COUNT [id number] RDW TNP:Client Request 01/13/2018 Unknown COMPLETE BLOOD COUNT 1482577 Eos Auto TNP:Client Request 01/13/2018 Unknown COMPLETE BLOOD COUNT [id number] Baso Auto TNP:Client Request 01/13/2018 Unknown COMPLETE BLOOD COUNT [id number] Neutrophil Abs TNP:Client Req uest 01/13/2018 Unknown COMPLETE BLOOD COUNT [id number] Lymphocyte Abs TNP:Client Req uest 01/13/2018 Unknown COMPLETE BLOOD COUNT [id number] Monocyte Abs TNP:Client Reque st 01/13/2018 Unknown COMPLETE BLOOD COUNT [id number] Eosinophil Abs TNP:Client Req uest 01/13/2018 Unknown COMPLETE BLOOD COUNT [id number] Basophil Abs TNP:Client Reque st 01/13/2018 Unknown COMPLETE BLOOD COUNT [id number] RDW-SD TNP:Client Request 01/13/2018 Unknown GLYCOSYLATED HEMOGLOBIN TEST 53186 Hgb A1c 86124-1 6.2 % 1 Unknown THYROID STIMULATING HORMONE 31085 TSH 2.764 uIU/mL 01/13/2018 Unknown COMPREHENSIVE METABOLIC 28981 AST 19 U/L 2017 Unknown COMPREHENSIVE METABOLIC 28883 ALT 21 U/L 2017 Unknown COMPREHENSIVE METABOLIC 99411 BUN 16 mg/dL 2017 Unknown COMPREHENSIVE METABOLIC 32206 ALBUMIN 4.2 g/dL 2017 Unknown COMPREHENSIVE METABOLIC 43876 CHLORIDE 105 mmol/L 01/13 Unknown COMPREHENSIVE METABOLIC 97000 Bili Total 0.5 mg/dL 01/13 Unknown COMPREHENSIVE METABOLIC 44578 ALK PHOS 85 U/L 2017 Unknown COMPREHENSIVE METABOLIC 16785 SODIUM 139 mmol/L 01/13 Unknown COMPREHENSIVE METABOLIC 60288 CREATININE 1.07 mg/dL 01/04 Unknown COMPREHENSIVE METABOLIC 68940 CALCIUM 9.2 mg/dL 2017 Unknown COMPREHENSIVE METABOLIC 49973 POTASSIUM 4.4 mmol/L 01/13 Unknown COMPREHENSIVE METABOLIC 18397 Total Protein 7.7 g/dL Unknown COMPREHENSIVE METABOLIC 26796 Glucose 130 mg/dL 2017 Unknown COMPREHENSIVE METABOLIC 61966 Bicarbonate 27 mmol/L 01/04 Unknown COMPREHENSIVE METABOLIC 06095 AGAP 7 mmol/L 2017 Unknown PSA EQUIMOLAR JERSON 42556 PSA Total 1.16 ng/mL 8 Unknown MEAN GLUC 5644353 Calc Mean Gluc 131 mg/dL 01/13/2018 Unkn own GFR CALC 8580587 GFR Non Afr Amr >60 mL/min 01/13/2018 Un known GFR CALC 1465607 GFR Afr Amr >60 mL/min 01/13/2018 Unknow n MEAN GLUC 6975070 Calc Mean Gluc 134 mg/dL 10/06/2017 Unkn own GFR CALC 5822776 GFR Non Afr Amr >60 mL/min 10/06/2017 Un known GFR CALC 2770053 GFR Afr Amr >60 mL/min 10/06/2017 Unknow n GLYCOSYLATED HEMOGLOBIN TEST 68509 Hgb A1c 95191-9 6.3 % 0 10/06/2017 Unknown VITAMIN B 12 44332 VITAMIN B12 1202 pg/mL 10/06/2017 Unk nown COMPLETE BLOOD COUNT 6646853 WBC 7.4 10e9/L 10/07/19 18 Unknown COMPLETE BLOOD COUNT 4163417 RBC 4.24 10e12/L 2017 Unknown COMPLETE BLOOD COUNT 8180630 HEMOGLOBIN 13.5 g/dL 10/07/19 18 Unknown COMPLETE BLOOD COUNT 8106630 HEMATOCRIT 41.6 % 10/07/19 18 Unknown COMPLETE BLOOD COUNT 9149268 MCV 98.1 fL 8 Unknown COMPLETE BLOOD COUNT 6221040 MCH 31.8 pg 8 Unknown COMPLETE BLOOD COUNT 2546930 MCHC 32.5 g/dL 8 Unknown COMPLETE BLOOD COUNT [id number] PLATELET COUNT 223 10e9/L 06/2017 Unknown COMPLETE BLOOD COUNT 9045041 Mean Plt Volume 11.9 fL 06/2017 Unknown COMPLETE BLOOD COUNT 2814526 Neut Auto 58.0 % 8 Unknown COMPLETE BLOOD COUNT 7609295 Lymph Auto 29.7 % 10/07/19 18 Unknown COMPLETE BLOOD COUNT 7675726 [place] Auto 8.3 % 8 Unknown COMPLETE BLOOD COUNT 1014677 RDW 14.0 % 8 Unknown COMPLETE BLOOD COUNT 2973179 Eos Auto 3.7 % 8 Unknown COMPLETE BLOOD COUNT 8952752 Baso Auto 0.3 % 8 Unknown COMPLETE BLOOD COUNT 4185182 Neutrophil Abs 4.29 10e9/L Unknown COMPLETE BLOOD COUNT [id number] Lymphocyte Abs 2.20 10e9/L Unknown COMPLETE BLOOD COUNT 8113104 Monocyte Abs 0.61 10e9/L 06/2017 Unknown COMPLETE BLOOD COUNT 9835041 Eosinophil Abs 0.27 10e9/L Unknown COMPLETE BLOOD COUNT 7589094 Basophil Abs 0.02 10e9/L 06/2017 Unknown COMPLETE BLOOD COUNT 2556655 RDW-SD 48.6 fL 8 Unknown LIPID GROUP 49960 Cholesterol 216 mg/dL 10/06/2017 [facility] w[facility] 68907 Triglyceride 335 mg/dL 10/06/2017 Unkn own LIP[facility] GROUP 84582 HDL CHOLESTEROL 33 mg/dL 10/06/2017 U nknown LIPID GROUP 13901 Chol/HDL Ratio 6.55 ratio 10/06/2017 U nknown LIPID GROUP 85232 NON-HDL Chol 183 mg/dL 10/06/2017 Unkn own LIP[facility] GROUP 28144 LDL Cholesterol 116 mg/dL 10/06/2017 U nknown COMPREHENSIVE METABOLIC 09191 AST 15 U/L 2017 Unknown COMPREHENSIVE METABOLIC 55409 ALT 15 U/L 2017 Unknown COMPREHENSIVE METABOLIC 45404 BUN 21 mg/dL 2017 Unknown COMPREHENSIVE METABOLIC 15324 ALBUMIN 4.1 g/dL 2017 Unknown COMPREHENSIVE METABOLIC 85203 CHLORIDE 107 mmol/L 10/06 Unknown COMPREHENSIVE METABOLIC 85176 Bili Total 0.6 mg/dL 10/06 Unknown COMPREHENSIVE METABOLIC 61303 ALK PHOS 68 U/L 2017 Unknown COMPREHENSIVE METABOLIC 55635 SODIUM 140 mmol/L 10/06 Unknown COMPREHENSIVE METABOLIC 87907 CREATININE 1.12 mg/dL 06/2017 Unknown COMPREHENSIVE METABOLIC 86689 CALCIUM 9.7 mg/dL 2017 Unknown COMPREHENSIVE METABOLIC 90091 POTASSIUM 4.6 mmol/L 10/06 Unknown COMPREHENSIVE METABOLIC 73781 Total Protein 6.6 g/dL Unknown COMPREHENSIVE METABOLIC 83189 Glucose 114 mg/dL 2017 Unknown COMPREHENSIVE METABOLIC 18619 Bicarbonate 26 mmol/L 06/2017 Unknown COMPREHENSIVE METABOLIC 99241 AGAP 7 mmol/L 2017 Unknown GLYCOSYLATED HEMOGLOBIN TEST 01133 Hgb A1c 65410-3 6.1 % 1 05/05/2016 Unknown GFR CALC 1737828 GFR Non Afr Amr >60 mL/min 03/05/2017 Un known GFR CALC 3347302 GFR Afr Amr >60 mL/min 03/05/2017 Unknow n MEAN GLUC 4682719 Calc Mean Gluc 128 mg/dL 03/05/2017 Unkn own COMPREHENSIVE METABOLIC 75580 AST 18 U/L 2016 Unknown COMPREHENSIVE METABOLIC 52124 ALT 20 U/L 2016 Unknown COMPREHENSIVE METABOLIC 60421 BUN 15 mg/dL 2016 Unknown COMPREHENSIVE METABOLIC 59033 ALBUMIN 4.3 g/dL 2016 Unknown COMPREHENSIVE METABOLIC 22473 CHLORIDE 105 mmol/L 03/05 Unknown COMPREHENSIVE METABOLIC 58801 Bili Total 0.5 mg/dL 03/05 Unknown COMPREHENSIVE METABOLIC 87056 ALK PHOS 57 U/L 2016 Unknown COMPREHENSIVE METABOLIC 05315 SODIUM 141 mmol/L 03/05 Unknown COMPREHENSIVE METABOLIC 09195 CREATININE 1.07 mg/dL 02/06 Unknown COMPREHENSIVE METABOLIC 58366 CALCIUM 9.3 mg/dL 2016 Unknown COMPREHENSIVE METABOLIC 54058 POTASSIUM 4.8 mmol/L 03/05 Unknown COMPREHENSIVE METABOLIC 85775 Total Protein 6.2 g/dL Unknown COMPREHENSIVE METABOLIC 49029 Glucose 118 mg/dL 2016 Unknown COMPREHENSIVE METABOLIC 62952 Bicarbonate 29 mmol/L 02/06 Unknown COMPREHENSIVE METABOLIC 26542 AGAP 7 mmol/L 2016 Unknown FREE T4 51341 T4 Free 1.38 ng/dL 03/05/2017 Unknown COMPLETE BLOOD COUNT [id number] WBC 8.4 10e9/L 03/05/20 17 Unknown COMPLETE BLOOD COUNT 5903574 RBC 4.11 10e12/L 2016 Unknown COMPLETE BLOOD COUNT [id number] HEMOGLOBIN 12.8 g/dL 03/05/20 17 Unknown COMPLETE BLOOD COUNT 2429355 HEMATOCRIT 40.1 % 03/05/20 17 Unknown COMPLETE BLOOD COUNT 1923748 MCV 97.6 fL 7 Unknown COMPLETE BLOOD COUNT 8071373 MCH 31.1 pg 7 Unknown COMPLETE BLOOD COUNT 2257923 MCHC 31.9 g/dL 7 Unknown COMPLETE BLOOD COUNT 9133040 PLATELET COUNT 184 10e9/L Unknown COMPLETE BLOOD COUNT 7269614 Mean Plt Volume 11.3 fL Unknown COMPLETE BLOOD COUNT 9220475 Neut Auto 62.5 % 7 Unknown COMPLETE BLOOD COUNT 8430909 Lymph Auto 26.4 % 03/05/20 17 Unknown COMPLETE BLOOD COUNT 1380883 [place] Auto 7.9 % 7 Unknown COMPLETE BLOOD COUNT 6121450 RDW 13.5 % 7 Unknown COMPLETE BLOOD COUNT 8651245 Eos Auto 3.0 % 7 Unknown COMPLETE BLOOD COUNT 0277279 Baso Auto 0.2 % 7 Unknown COMPLETE BLOOD COUNT 6703733 Neutrophil Abs 5.25 10e9/L Unknown COMPLETE BLOOD COUNT 2969857 Lymphocyte Abs 2.22 10e9/L Unknown COMPLETE BLOOD COUNT [id number] Monocyte Abs 0.66 10e9/L 02/06 Unknown COMPLETE BLOOD COUNT 6366616 Eosinophil Abs 0.25 10e9/L Unknown COMPLETE BLOOD COUNT 4061584 RDW-SD 46.7 fL 7 Unknown COMPLETE BLOOD COUNT [id number] Basophil Abs 0.02 10e9/L 02/06 Unknown THYROID STIMULATING HORMONE 65491 TSH 2.330 uIU/mL 03/05/2017 Unknown LIPID GROUP 37414 Cholesterol 135 mg/dL 03/05/2017 [facility] wn LIPID GROUP 03760 Triglyceride 297 mg/dL 03/05/2017 Unkn own LIPID GROUP 33800 HDL CHOLESTEROL 34 mg/dL 03/05/2017 U nknown LIPID GROUP 11238 Chol/HDL Ratio 3.97 ratio 03/05/2017 U nknown LIPID GROUP 73860 NON-HDL Chol 101 mg/dL 03/05/2017 Unkn own LIPID GROUP 52084 LDL Cholesterol 42 mg/dL 03/05/2017 U nknown GLYCOSYLATED HEMOGLOBIN TEST 70134 Hgb A1c 28561-9 6.5 % 1 05/07/2015 Unknown GFR CALC 1324204 GFR Non Afr Amr 55 mL/min 03/06/2016 Unk nown GFR CALC 2606301 GFR Afr Amr >60 mL/min 03/06/2016 Unknow n COMPLETE BLOOD COUNT 6733695 WBC 8.5 10e9/L 03/06/20 16 Unknown COMPLETE BLOOD COUNT [id number] RBC 4.32 10e12/L 2015 Unknown COMPLETE BLOOD COUNT 2237885 HEMOGLOBIN 13.5 g/dL 03/06/20 16 Unknown COMPLETE BLOOD COUNT 3046198 HEMATOCRIT 41.3 % 03/06/20 16 Unknown COMPLETE BLOOD COUNT 6662975 MCV 95.6 fL 6 Unknown COMPLETE BLOOD COUNT 6695910 MCH 31.3 pg 6 Unknown COMPLETE BLOOD COUNT 9548796 MCHC 32.7 g/dL 6 Unknown COMPLETE BLOOD COUNT 9836698 PLATELET COUNT 191 10e9/L 04/2015 Unknown COMPLETE BLOOD COUNT 0397602 Mean Plt Volume 11.7 fL 04/2015 Unknown COMPLETE BLOOD COUNT 0396205 Neut Auto 64.2 % 6 Unknown COMPLETE BLOOD COUNT 7921446 Lymph Auto 25.9 % 03/06/20 16 Unknown COMPLETE BLOOD COUNT 7152923 [place] Auto 7.8 % 6 Unknown COMPLETE BLOOD COUNT 1097580 RDW 13.4 % 6 Unknown COMPLETE BLOOD COUNT 5832515 Eos Auto 2.0 % 6 Unknown COMPLETE BLOOD COUNT 6717905 Baso Auto 0.1 % 6 Unknown COMPLETE BLOOD COUNT 8579544 Neutrophil Abs 5.46 10e9/L Unknown COMPLETE BLOOD COUNT 1188749 Lymphocyte Abs 2.20 10e9/L Unknown COMPLETE BLOOD COUNT 2923552 Monocyte Abs 0.66 10e9/L 04/2015 Unknown COMPLETE BLOOD COUNT 0314899 Eosinophil Abs 0.17 10e9/L Unknown COMPLETE BLOOD COUNT 3650776 RDW-SD 45.0 fL 6 Unknown COMPLETE BLOOD COUNT [id number] Basophil Abs 0.01 10e9/L 04/2015 Unknown FREE T4 88200 T4 Free 1.34 ng/dL 03/06/2016 Unknown MEAN GLUC 6110331 Calc Mean Gluc 140 mg/dL 03/06/2016 Unkn own COMPREHENSIVE METABOLIC 22309 AST 15 U/L 2015 Unknown COMPREHENSIVE METABOLIC 27569 ALT 18 U/L 2015 Unknown COMPREHENSIVE METABOLIC 09609 BUN 21 mg/dL 2015 Unknown COMPREHENSIVE METABOLIC 85335 ALBUMIN 4.3 g/dL 2015 Unknown COMPREHENSIVE METABOLIC 51369 CHLORIDE 103 mmol/L 03/06 Unknown COMPREHENSIVE METABOLIC 65535 Bili Total 0.4 mg/dL 03/06 Unknown COMPREHENSIVE METABOLIC 13318 ALK PHOS 68 U/L 2015 Unknown COMPREHENSIVE METABOLIC 82570 SODIUM 140 mmol/L 03/06 Unknown COMPREHENSIVE METABOLIC 01072 CREATININE 1.31 mg/dL 04/2015 Unknown COMPREHENSIVE METABOLIC 79516 CALCIUM 9.4 mg/dL 2015 Unknown COMPREHENSIVE METABOLIC 26433 POTASSIUM 4.8 mmol/L 03/06 Unknown COMPREHENSIVE METABOLIC 64589 Total Protein 6.6 g/dL Unknown COMPREHENSIVE METABOLIC 78554 Glucose 142 mg/dL 2015 Unknown COMPREHENSIVE METABOLIC 32737 Bicarbonate 29 mmol/L 04/2015 Unknown COMPREHENSIVE METABOLIC 08254 AGAP 8 mmol/L 2015 Unknown THYROID STIMULATING HORMONE 68134 TSH 2.288 uIU/mL 03/06/2016 Unknown LIPID GROUP 59080 Cholesterol 154 mg/dL 03/06/2016 Unkno wn LIPID GROUP 78990 Triglyceride 266 mg/dL 03/06/2016 Unkn own LIPID GROUP 82648 HDL CHOLESTEROL 38 mg/dL 03/06/2016 U nknown LIPID GROUP 47713 Chol/HDL Ratio 4.05 ratio 03/06/2016 U nknown LIPID GROUP 89260 NON-HDL Chol 116 mg/dL 03/06/2016 Unkn own LIPID GROUP 40413 LDL Cholesterol 63 mg/dL 03/06/2016 U nknown MEAN GLUC 2810828 Mean Glucose 128 mg/dL 08/31/2015 Unknow n COMPLETE BLOOD COUNT [id number] WBC 8.4 10e9/L 08/31/19 16 Unknown COMPLETE BLOOD COUNT 6288258 RBC 4.12 10e12/L 2015 Unknown COMPLETE BLOOD COUNT 6319617 HEMOGLOBIN 12.8 g/dL 08/31/19 16 Unknown COMPLETE BLOOD COUNT [id number] HEMATOCRIT 39.6 % 08/31/19 16 Unknown COMPLETE BLOOD COUNT 9275558 MCV 96.1 fL 6 Unknown COMPLETE BLOOD COUNT 8266158 MCH 31.1 pg 6 Unknown COMPLETE BLOOD COUNT 1059155 MCHC 32.3 g/dL 6 Unknown COMPLETE BLOOD COUNT 4181420 PLATELET COUNT 184 10e9/L Unknown COMPLETE BLOOD COUNT 7984886 Mean Plt Volume 12.0 fL Unknown COMPLETE BLOOD COUNT 4297529 Neut Auto 59.8 % 6 Unknown COMPLETE BLOOD COUNT 4946514 Lymph Auto 27.9 % 08/31/19 16 Unknown COMPLETE BLOOD COUNT 9812415 [place] Auto 9.1 % 6 Unknown COMPLETE BLOOD COUNT 0236244 RDW 13.6 % 6 Unknown COMPLETE BLOOD COUNT 2299192 Eos Auto 3.1 % 6 Unknown COMPLETE BLOOD COUNT 3496289 Baso Auto 0.1 % 6 Unknown COMPLETE BLOOD COUNT [id number] Neutrophil Abs 5.02 10e9/L Unknown COMPLETE BLOOD COUNT 7922830 Lymphoctye Abs 2.34 10e9/L Unknown COMPLETE BLOOD COUNT 3178948 Monocyte Abs 0.76 10e9/L 08/05 Unknown COMPLETE BLOOD COUNT 7837767 Eosinophil Abs 0.26 10e9/L Unknown COMPLETE BLOOD COUNT 6349696 RDW-SD 46.3 fL 6 Unknown COMPLETE BLOOD COUNT 5359904 Basophil Abs 0.01 10e9/L 08/05 Unknown GLYCOSYLATED HEMOGLOBIN TEST 02236 Hgb A1c 50055-7 6.1 % 0 08/31/2015 Unknown GFR CALC 1112065 GFR Non Afr Amr >60 mL/min 08/31/2015 Un known GFR CALC 5230537 GFR Afr Amr >60 mL/min 08/31/2015 Unknow n FREE T4 41061 T4 Free 1.21 ng/dL 08/31/2015 Unknown THYROID STIMULATING HORMONE 97637 TSH 2.988 uIU/mL 08/31/2015 Unknown COMPREHENSIVE METABOLIC 96479 AST 16 U/L 2015 Unknown COMPREHENSIVE METABOLIC 55569 ALT 19 U/L 2015 Unknown COMPREHENSIVE METABOLIC 44174 BUN 17 mg/dL 2015 Unknown COMPREHENSIVE METABOLIC 51412 ALBUMIN 4.3 g/dL 2015 Unknown COMPREHENSIVE METABOLIC 32074 CHLORIDE 107 mmol/L 08/30 Unknown COMPREHENSIVE METABOLIC 05601 Bili Total 0.4 mg/dL 08/30 Unknown COMPREHENSIVE METABOLIC 67028 ALK PHOS 66 U/L 2015 Unknown COMPREHENSIVE METABOLIC 09870 SODIUM 140 mmol/L 08/30 Unknown COMPREHENSIVE METABOLIC 35197 CREATININE 1.07 mg/dL 08/05 Unknown COMPREHENSIVE METABOLIC 16165 CALCIUM 9.5 mg/dL 2015 Unknown COMPREHENSIVE METABOLIC 45960 POTASSIUM 4.5 mmol/L 08/30 Unknown COMPREHENSIVE METABOLIC 80693 Total Protein 6.7 g/dL Unknown COMPREHENSIVE METABOLIC 57815 Glucose 122 mg/dL 2015 Unknown COMPREHENSIVE METABOLIC 89826 Bicarbonate 26 mmol/L 08/05 Unknown COMPREHENSIVE METABOLIC 69823 AGAP 7 mmol/L 2015 Unknown LIPID GROUP 69607 Cholesterol 171 mg/dL 08/31/2015 Unkno wn LIPID GROUP 29288 Triglyceride 428 mg/dL 08/31/2015 Unkn own LIPID GROUP 20310 HDL CHOLESTEROL 35 mg/dL 08/31/2015 U nknown LIPID GROUP 67227 Chol/HDL Ratio 4.89 ratio 08/31/2015 U nknown LIPID GROUP 14606 NON-HDL Chol 136 mg/dL 08/31/2015 Unkn own LIPID GROUP 17705 LDL Cholesterol 50 mg/dL 08/31/2015 U nknown PSA EQUIMOLAR JERSON 43644 PSA Total 0.47 ng/mL 6 Unknown GFR CALC 7583843 GFR AA >60 ML/MIN 01/12/2015 Unknown GFR CALC 4153571 GFR NON-AA >60 ML/MIN 01/12/2015 Unknown COMPREHENSIVE METABOLIC 61514 AST 18 U/L 2014 Unknown COMPREHENSIVE METABOLIC 08281 ALT 19 IU/L 2014 Unknown COMPREHENSIVE METABOLIC 22906 BUN 19 MG/DL 2014 Unknown COMPREHENSIVE METABOLIC 07435 ALBUMIN 4.7 GM/DL 2014 Unknown COMPREHENSIVE METABOLIC 00419 CHLORIDE 104 MMOL/L 01/12 Unknown COMPREHENSIVE METABOLIC 80119 BILI TOT 0.8 MG/DL 2014 Unknown COMPREHENSIVE METABOLIC 53341 ALK PHOS 58 U/L 2014 Unknown COMPREHENSIVE METABOLIC 71936 SODIUM 139 MMOL/L 01/12 Unknown COMPREHENSIVE METABOLIC 85520 CREATININE 1.09 MG/DL 12/2014 Unknown COMPREHENSIVE METABOLIC 75859 CALCIUM 9.6 MG/DL 2014 Unknown COMPREHENSIVE METABOLIC 57345 POTASSIUM 4.4 MMOL/L 01/12 Unknown COMPREHENSIVE METABOLIC 38192 PROT TOT 6.7 GM/DL 2014 Unknown COMPREHENSIVE METABOLIC 77584 Glucose 109 MG/DL 2014 Unknown COMPREHENSIVE METABOLIC 16154 BICARB 27 MMOL/L 2014 Unknown COMPREHENSIVE METABOLIC 97830 ANION GAP 8 MEQ/L 2014 Unknown LIPID GROUP 81647 HDL TEST 36 MG/DL 01/12/2015 Unknown LIPID GROUP 33725 TRIG 220 MG/DL 01/12/2015 Unknown LIPID GROUP 58273 TEST LDL 58 MG/DL 01/12/2015 Unknown LIPID GROUP 12826 CHOL 138 MG/DL 01/12/2015 Unknown LIPID GROUP 24678 RCHOL/HDL 3.83 RATIO 01/12/2015 Unknow n LIPID GROUP 50922 NON-HDL CH 102 MG/DL 01/12/2015 Unknow n GLYCOSYLATED HEMOGLOBIN TEST 34157 A1C HPLC 72048-2 6.1 % 1 Unknown COMPLETE BLOOD COUNT 1159529 WBC 7.1 10e9/L 01/13/20 15 Unknown COMPLETE BLOOD COUNT 6379514 RBC 4.38 10e12/L 2014 Unknown COMPLETE BLOOD COUNT 2770706 HGB 13.7 g/dL 5 Unknown COMPLETE BLOOD COUNT 2685745 HCT DET 41.3 % 5 Unknown COMPLETE BLOOD COUNT 0111815 MCV 94.3 fL 5 Unknown COMPLETE BLOOD COUNT 2474822 MCH 31.3 pg 5 Unknown COMPLETE BLOOD COUNT 3783825 MCHC 33.2 g/dL 5 Unknown COMPLETE BLOOD COUNT 2579174 PLT 174 10e9/L 01/13/20 15 Unknown COMPLETE BLOOD COUNT 7111883 MPV 11.8 fL 5 Unknown COMPLETE BLOOD COUNT 6898420 SAMIR % 61.3 % 5 Unknown COMPLETE BLOOD COUNT 2545500 LY % 28.3 % 5 Unknown COMPLETE BLOOD COUNT 9049193 MON % 7.6 % 5 Unknown COMPLETE BLOOD COUNT 1759407 EOS % 2.7 % 5 Unknown COMPLETE BLOOD COUNT 8738712 BASO % 0.1 % 5 Unknown COMPLETE BLOOD COUNT 6072988 RDW 13.1 % 5 Unknown COMPLETE BLOOD COUNT 3162908 ABS SAMIR 4.35 10e9/L 015 Unknown COMPLETE BLOOD COUNT 7599422 ABS LYMPH 2.01 10e9/L 015 Unknown COMPLETE BLOOD COUNT 0453786 ABS MONO 0.54 10e9/L 015 Unknown COMPLETE BLOOD COUNT 5967706 ABS EOS 0.19 10e9/L 015 Unknown COMPLETE BLOOD COUNT 2349519 ABS BASO 0.01 10e9/L 015 Unknown COMPLETE BLOOD COUNT 3086668 RDW-SD 43.9 fL 5 Unknown GLYCOSYLATED HEMOGLOBIN TEST 94343 A1C HPLC 45384-1 6.1 % 0 08/15/2014 Unknown COMPLETE BLOOD COUNT 6098875 WBC 9.7 10e9/L 08/16/19 15 Unknown COMPLETE BLOOD COUNT [id number] RBC 4.29 10e12/L 2014 Unknown COMPLETE BLOOD COUNT [id number] HGB 13.3 g/dL 5 Unknown COMPLETE BLOOD COUNT [id number] HCT DET 40.5 % 5 Unknown COMPLETE BLOOD COUNT [id number] MCV 94.4 fL 5 Unknown COMPLETE BLOOD COUNT [id number] MCH 31.0 pg 5 Unknown COMPLETE BLOOD COUNT [id number] MCHC 32.8 g/dL 5 Unknown COMPLETE BLOOD COUNT [id number] PLT 227 10e9/L 08/16/19 15 Unknown COMPLETE BLOOD COUNT [id number] MPV 11.0 fL 5 Unknown COMPLETE BLOOD COUNT [id number] SAMIR % 66.4 % 5 Unknown COMPLETE BLOOD COUNT [id number] LY % 23.7 % 5 Unknown COMPLETE BLOOD COUNT [id number] MON % 8.1 % 5 Unknown COMPLETE BLOOD COUNT [id number] EOS % 1.6 % 5 Unknown COMPLETE BLOOD COUNT [id number] BASO % 0.2 % 5 Unknown COMPLETE BLOOD COUNT [id number] RDW 13.4 % 5 Unknown COMPLETE BLOOD COUNT [id number] ABS SAMIR 6.44 10e9/L 015 Unknown COMPLETE BLOOD COUNT [id number] ABS LYMPH 2.30 10e9/L 015 Unknown COMPLETE BLOOD COUNT [id number] ABS MONO 0.79 10e9/L 015 Unknown COMPLETE BLOOD COUNT [id number] ABS EOS 0.16 10e9/L 015 Unknown COMPLETE BLOOD COUNT [id number] ABS BASO 0.02 10e9/L 015 Unknown COMPLETE BLOOD COUNT [id number] RDW-SD 44.7 fL 5 Unknown COMPREHENSIVE METABOLIC 47140 AST 17 U/L 2014 Unknown COMPREHENSIVE METABOLIC 64945 ALT 23 IU/L 2014 Unknown COMPREHENSIVE METABOLIC 77954 BUN 16 MG/DL 2014 Unknown COMPREHENSIVE METABOLIC 40167 ALBUMIN 4.3 GM/DL 2014 Unknown COMPREHENSIVE METABOLIC 70902 CHLORIDE 107 MMOL/L 08/15 Unknown COMPREHENSIVE METABOLIC 75551 BILI TOT 0.4 MG/DL 2014 Unknown COMPREHENSIVE METABOLIC 49734 ALK PHOS 91 U/L 2014 Unknown COMPREHENSIVE METABOLIC 85949 SODIUM 139 MMOL/L 08/15 Unknown COMPREHENSIVE METABOLIC 27488 CREATININE 1.07 MG/DL 08/04 Unknown COMPREHENSIVE METABOLIC 32101 CALCIUM 9.6 MG/DL 2014 Unknown COMPREHENSIVE METABOLIC 93859 POTASSIUM 4.6 MMOL/L 08/15 Unknown COMPREHENSIVE METABOLIC 44223 PROT TOT 6.7 GM/DL 2014 Unknown COMPREHENSIVE METABOLIC 27900 Glucose 111 MG/DL 2014 Unknown COMPREHENSIVE METABOLIC 75603 BICARB 27 MMOL/L 2014 Unknown COMPREHENSIVE METABOLIC 30360 ANION GAP 5 MEQ/L 2014 Unknown GFR CALC [id number] GFR AA >60 ML/MIN 08/15/2014 Unknown GFR CALC 1569110 GFR NON-AA >60 ML/MIN 08/15/2014 Unknown THYROID STIMULATING HORMONE 66468 TSH 1.598 uIU/ML 08/15/2014 Unknown LIPID GROUP 38487 HDL TEST 33 MG/DL 08/15/2014 Unknown LIPID GROUP 45260 TRIG 187 MG/DL 08/15/2014 Unknown LIPID GROUP 98992 TEST LDL 58 MG/DL 08/15/2014 Unknown LIPID GROUP 13200 CHOL 128 MG/DL 08/15/2014 Unknown LIPID GROUP 64028 RCHOL/HDL 3.88 RATIO 08/15/2014 Unknow n LIPID GROUP 55386 NON-HDL CH 95 MG/DL 08/15/2014 Unknow n PSA EQUIMOLAR JERSON 32422 PSA EQ 0.70 NG/ML 5 Unknown FREE T4 83313 FREE T4 1.32 NG/DL 08/15/2014 Unknown GFR CALC 3324031 GFR AA >60 ML/MIN 12/14/2013 Unknown GFR CALC 4104113 GFR NON-AA 58.0L ML/MIN 12/14/2013 Unkno wn COMPLETE BLOOD COUNT 7675140 WBC 8.7 10e9/L 12/15/19 14 Unknown COMPLETE BLOOD COUNT 2565681 RBC 4.32 10e12/L 2013 Unknown COMPLETE BLOOD COUNT 3351141 HGB 13.5 g/dL 4 Unknown COMPLETE BLOOD COUNT 3291077 HCT DET 40.6 % 4 Unknown COMPLETE BLOOD COUNT 9440234 MCV 94.0 fL 4 Unknown COMPLETE BLOOD COUNT 8989658 MCH 31.3 pg 4 Unknown COMPLETE BLOOD COUNT 3000415 MCHC 33.3 g/dL 4 Unknown COMPLETE BLOOD COUNT 1169571 PLT 205 10e9/L 12/15/19 14 Unknown COMPLETE BLOOD COUNT 9477873 MPV 11.7 fL 4 Unknown COMPLETE BLOOD COUNT 4496739 SAMIR % 62.5 % 4 Unknown COMPLETE BLOOD COUNT 3690040 LY % 26.9 % 4 Unknown COMPLETE BLOOD COUNT 6397543 MON % 8.8 % 4 Unknown COMPLETE BLOOD COUNT 9595366 EOS % 1.7 % 4 Unknown COMPLETE BLOOD COUNT 4633769 BASO % 0.1 % 4 Unknown COMPLETE BLOOD COUNT 0303708 RDW 13.4 % 4 Unknown COMPLETE BLOOD COUNT 9378306 ABS SAMIR 5.44 10e9/L 014 Unknown COMPLETE BLOOD COUNT 6975602 ABS LYMPH 2.34 10e9/L 014 Unknown COMPLETE BLOOD COUNT 2837822 ABS MONO 0.77 10e9/L 014 Unknown COMPLETE BLOOD COUNT 8202785 ABS EOS 0.15 10e9/L 014 Unknown COMPLETE BLOOD COUNT 1201549 ABS BASO 0.01 10e9/L 014 Unknown COMPLETE BLOOD COUNT 8928994 RDW-SD 44.7 fL 4 Unknown COMPREHENSIVE METABOLIC 13671 AST 14 U/L 2013 Unknown COMPREHENSIVE METABOLIC 91553 ALT 12 IU/L 2013 Unknown COMPREHENSIVE METABOLIC 93449 BUN 24 MG/DL 2013 Unknown COMPREHENSIVE METABOLIC 40907 ALBUMIN 4.5 GM/DL 2013 Unknown COMPREHENSIVE METABOLIC 32309 CHLORIDE 104 MMOL/L 12/14 Unknown COMPREHENSIVE METABOLIC 51677 BILI TOT 0.6 MG/DL 2013 Unknown COMPREHENSIVE METABOLIC 64364 ALK PHOS 82 U/L 2013 Unknown COMPREHENSIVE METABOLIC 95165 SODIUM 135 MMOL/L 12/14 Unknown COMPREHENSIVE METABOLIC 25165 CREATININE 1.25 MG/DL 12/05 Unknown COMPREHENSIVE METABOLIC 87424 CALCIUM 9.8 MG/DL 2013 Unknown COMPREHENSIVE METABOLIC 51065 POTASSIUM 4.7 MMOL/L 12/14 Unknown COMPREHENSIVE METABOLIC 32188 PROT TOT 6.7 GM/DL 2013 Unknown COMPREHENSIVE METABOLIC 48543 Glucose 126 MG/DL 2013 Unknown COMPREHENSIVE METABOLIC 89233 BICARB 27 MMOL/L 2013 Unknown COMPREHENSIVE METABOLIC 27998 ANION GAP 4 MEQ/L 2013 Unknown THYROID STIMULATING HORMONE 04873 TSH 3.281 uIU/ML 12/14/2013 Unknown FREE T4 48734 FREE T4 1.28 NG/DL 12/14/2013 Unknown LIPID GROUP 54356 HDL TEST 36 MG/DL 12/14/2013 Unknown LIPID GROUP 19941 TRIG 253 MG/DL 12/14/2013 Unknown LIPID GROUP 62342 TEST LDL 56 MG/DL 12/14/2013 Unknown LIPID GROUP 66630 CHOL 143 MG/DL 12/14/2013 Unknown LIPID GROUP 04883 RCHOL/HDL 3.97 RATIO 12/14/2013 Unknow n LIPID GROUP 74294 NON-HDL CH 107 MG/DL 12/14/2013 Unknow n GLYCOSYLATED HEMOGLOBIN TEST 63593 A1C HPLC 16418-6 6.1 % 0 12/14/2013 Unknown GLYCOSYLATED HEMOGLOBIN TEST 21276 A1C HPLC 88455-4 6.0 % 0 06/08/2013 Unknown LIPID GROUP 43511 HDL TEST 39 MG/DL 06/08/2013 Unknown LIPID GROUP 65222 TRIG 166 MG/DL 06/08/2013 Unknown LIPID GROUP 10452 TEST LDL 86 MG/DL 06/08/2013 Unknown LIPID GROUP 95010 CHOL 158 MG/DL 06/08/2013 Unknown LIPID GROUP 02176 RCHOL/HDL 4.05 RATIO 06/08/2013 Unknow n COMPREHENSIVE METABOLIC 76525 AST 17 U/L 2013 Unknown COMPREHENSIVE METABOLIC 52261 ALT 25 IU/L 2013 Unknown COMPREHENSIVE METABOLIC 59083 BUN 18 MG/DL 2013 Unknown COMPREHENSIVE METABOLIC 82551 ALBUMIN 4.5 GM/DL 2013 Unknown COMPREHENSIVE METABOLIC 14987 CHLORIDE 103 MMOL/L 06/08 Unknown COMPREHENSIVE METABOLIC 46555 BILI TOT 0.4 MG/DL 2013 Unknown COMPREHENSIVE METABOLIC 91836 ALK PHOS 72 U/L 2013 Unknown COMPREHENSIVE METABOLIC 72577 SODIUM 137 MMOL/L 06/08 Unknown COMPREHENSIVE METABOLIC 40801 CREATININE 1.07 MG/DL 08/2013 Unknown COMPREHENSIVE METABOLIC 63422 CALCIUM 9.7 MG/DL 2013 Unknown COMPREHENSIVE METABOLIC 41079 POTASSIUM 4.7 MMOL/L 06/08 Unknown COMPREHENSIVE METABOLIC 62242 PROT TOT 6.6 GM/DL 2013 Unknown COMPREHENSIVE METABOLIC 40950 Glucose 130 MG/DL 2013 Unknown COMPREHENSIVE METABOLIC 31092 BICARB 25 MMOL/L 2013 Unknown COMPREHENSIVE METABOLIC 22753 ANION GAP 9 MEQ/L 2013 Unknown FREE T4 63125 FREE T4 1.29 NG/DL 06/08/2013 Unknown THYROID STIMULATING HORMONE 81978 TSH 2.445 uIU/ML 06/08/2013 Unknown GFR CALC 4486330 GFR AA >60 ML/MIN 06/08/2013 Unknown GFR CALC 6874301 GFR NON-AA >60 ML/MIN 06/08/2013 Unknown COMPLETE BLOOD COUNT 2988111 WBC 8.2 10e9/L 06/09/19 14 Unknown COMPLETE BLOOD COUNT 3157157 RBC 4.63 10e12/L 2013 Unknown COMPLETE BLOOD COUNT 0339379 HGB 14.1 g/dL 4 Unknown COMPLETE BLOOD COUNT 3912491 HCT DET 42.6 % 4 Unknown COMPLETE BLOOD COUNT 4805025 MCV 92.0 fL 4 Unknown COMPLETE BLOOD COUNT 8942780 MCH 30.5 pg 4 Unknown COMPLETE BLOOD COUNT 7331571 MCHC 33.1 g/dL 4 Unknown COMPLETE BLOOD COUNT 7135949 PLT 222 10e9/L 06/09/19 14 Unknown COMPLETE BLOOD COUNT 1010748 MPV 10.8 fL 4 Unknown COMPLETE BLOOD COUNT 7789061 SAMIR % 60.8 % 4 Unknown COMPLETE BLOOD COUNT 3508459 LY % 29.2 % 4 Unknown COMPLETE BLOOD COUNT 7857328 MON % 7.6 % 4 Unknown COMPLETE BLOOD COUNT [id number] EOS % 2.3 % 4 Unknown COMPLETE BLOOD COUNT 5820635 BASO % 0.1 % 4 Unknown COMPLETE BLOOD COUNT 4015835 RDW 13.7 % 4 Unknown COMPLETE BLOOD COUNT 5792328 ABS SAMIR 4.99 10e9/L 014 Unknown COMPLETE BLOOD COUNT 0863314 ABS LYMPH 2.39 10e9/L 014 Unknown COMPLETE BLOOD COUNT 8879159 ABS MONO 0.62 10e9/L 014 Unknown COMPLETE BLOOD COUNT 4004816 ABS EOS 0.19 10e9/L 014 Unknown COMPLETE BLOOD COUNT 9445837 ABS BASO 0.01 10e9/L 014 Unknown COMPLETE BLOOD COUNT 1634522 RDW-SD 45.2 fL 4 Unknown LIPID GROUP 87870 HDL TEST 40 MG/DL 11/11/2012 Unknown LIPID GROUP 43289 TRIG 153 MG/DL 11/11/2012 Unknown LIPID GROUP 61559 TEST LDL 71 MG/DL 11/11/2012 Unknown LIPID GROUP 71177 CHOL 142 MG/DL 11/11/2012 Unknown LIPID GROUP 85377 RCHOL/HDL 3.55 RATIO 11/11/2012 Unknow n GFR CALC 7394390 GFR AA >60 ML/MIN 11/11/2012 Unknown GFR CALC 5083242 GFR NON-AA 57.0L ML/MIN 11/11/2012 Unkno wn HEMOGLOBIN A1C (GLYCOSYLATED) 5469339 A1C HPLC 70654-2 5.9 % 11/11/2012 Unknown THYROID STIMULATING HORMONE 96984 TSH 2.439 uIU/ML 11/11/2012 Unknown COMPLETE BLOOD COUNT 0806208 WBC 8.5 10e9/L 11/12/19 13 Unknown COMPLETE BLOOD COUNT 3585445 RBC 4.42 10e12/L 2012 Unknown COMPLETE BLOOD COUNT 7929104 HGB 13.7 g/dL 3 Unknown COMPLETE BLOOD COUNT 0360508 HCT DET 41.3 % 3 Unknown COMPLETE BLOOD COUNT 4826284 MCV 93.4 fL 3 Unknown COMPLETE BLOOD COUNT 1805246 MCH 31.0 pg 3 Unknown COMPLETE BLOOD COUNT 1268702 MCHC 33.2 g/dL 3 Unknown COMPLETE BLOOD COUNT 1943407 PLT 220 10e9/L 11/12/19 13 Unknown COMPLETE BLOOD COUNT 4334755 MPV 10.8 fL 3 Unknown COMPLETE BLOOD COUNT 7677322 SAMIR % 60.4 % 3 Unknown COMPLETE BLOOD COUNT 3613142 LY % 28.7 % 3 Unknown COMPLETE BLOOD COUNT 5968520 MON % 8.0 % 3 Unknown COMPLETE BLOOD COUNT 8203390 EOS % 2.8 % 3 Unknown COMPLETE BLOOD COUNT 7213778 BASO % 0.1 % 3 Unknown COMPLETE BLOOD COUNT 0033558 RDW 13.7 % 3 Unknown COMPLETE BLOOD COUNT 7564081 ABS SAMIR 5.13 10e9/L 013 Unknown COMPLETE BLOOD COUNT 7236772 ABS LYMPH 2.44 10e9/L 013 Unknown COMPLETE BLOOD COUNT 5602598 ABS MONO 0.68 10e9/L 013 Unknown COMPLETE BLOOD COUNT 6488063 ABS EOS 0.24 10e9/L 013 Unknown COMPLETE BLOOD COUNT 7614053 ABS BASO 0.01 10e9/L 013 Unknown COMPLETE BLOOD COUNT 9917546 RDW-SD 45.6 fL 3 Unknown COMPREHENSIVE METABOLIC 47710 AST 19 U/L 2012 Unknown COMPREHENSIVE METABOLIC 65422 ALT 28 IU/L 2012 Unknown COMPREHENSIVE METABOLIC 79399 BUN 31 MG/DL 2012 Unknown COMPREHENSIVE METABOLIC 72018 ALBUMIN 4.7 GM/DL 2012 Unknown COMPREHENSIVE METABOLIC 28451 CHLORIDE 106 MMOL/L 11/11 Unknown COMPREHENSIVE METABOLIC 03827 BILI TOT 0.5 MG/DL 2012 Unknown COMPREHENSIVE METABOLIC 06897 ALK PHOS 64 U/L 2012 Unknown COMPREHENSIVE METABOLIC 22329 SODIUM 136 MMOL/L 11/11 Unknown COMPREHENSIVE METABOLIC 60503 CREATININE 1.27 MG/DL 11/2012 Unknown COMPREHENSIVE METABOLIC 51741 CALCIUM 9.4 MG/DL 2012 Unknown COMPREHENSIVE METABOLIC 23350 POTASSIUM 4.9 MMOL/L 11/11 Unknown COMPREHENSIVE METABOLIC 11880 PROT TOT 6.7 GM/DL 2012 Unknown COMPREHENSIVE METABOLIC 07698 Glucose 108 MG/DL 2012 Unknown COMPREHENSIVE METABOLIC 43026 BICARB 21 MMOL/L 2012 Unknown COMPREHENSIVE METABOLIC 13416 ANION GAP 9 MEQ/L 2012 Unknown THYROID STIMULATING HORMONE 87363 TSH 2.572 uIU/ML 05/04/2012 Unknown COMPLETE BLOOD COUNT 5252071 WBC 9.3 10e9/L 05/04/19 13 Unknown COMPLETE BLOOD COUNT 3779441 RBC 4.43 10e12/L 2012 Unknown COMPLETE BLOOD COUNT 5710043 HGB 14.2 g/dL 3 Unknown COMPLETE BLOOD COUNT 9228526 HCT DET 41.1 % 3 Unknown COMPLETE BLOOD COUNT 4462306 MCV 92.8 fL 3 Unknown COMPLETE BLOOD COUNT 0145294 MCH 32.1 pg 3 Unknown COMPLETE BLOOD COUNT 4359589 MCHC 34.5 g/dL 3 Unknown COMPLETE BLOOD COUNT 0335607 PLT 193 10e9/L 05/04/19 13 Unknown COMPLETE BLOOD COUNT 6885269 MPV 10.8 fL 3 Unknown COMPLETE BLOOD COUNT 1450420 SAMIR % 63.0 % 3 Unknown COMPLETE BLOOD COUNT 9135094 LY % 25.3 % 3 Unknown COMPLETE BLOOD COUNT 1558568 MON % 9.1 % 3 Unknown COMPLETE BLOOD COUNT 0089174 EOS % 2.5 % 3 Unknown COMPLETE BLOOD COUNT 5131103 BASO % 0.1 % 3 Unknown COMPLETE BLOOD COUNT 0817703 RDW 12.6 % 3 Unknown COMPLETE BLOOD COUNT 3986966 ABS SAMIR 5.86 10e9/L 013 Unknown COMPLETE BLOOD COUNT 8802849 ABS LYMPH 2.35 10e9/L 013 Unknown COMPLETE BLOOD COUNT 0341804 ABS MONO 0.85 10e9/L 013 Unknown COMPLETE BLOOD COUNT 1834831 ABS EOS 0.23 10e9/L 013 Unknown COMPLETE BLOOD COUNT 1148630 ABS BASO 0.01 10e9/L 013 Unknown COMPLETE BLOOD COUNT 9573191 RDW-SD 41.2 fL 3 Unknown LIPID GROUP 29456 HDL TEST 35 MG/DL 05/04/2012 Unknown LIPID GROUP 49943 TRIG 236 MG/DL 05/04/2012 Unknown LIPID GROUP 39034 TEST LDL 64 MG/DL 05/04/2012 Unknown LIPID GROUP 64588 CHOL 146 MG/DL 05/04/2012 Unknown LIPID GROUP 86286 RCHOL/HDL 4.17 RATIO 05/04/2012 Unknow n COMPREHENSIVE METABOLIC 09840 AST 23 U/L 2012 Unknown COMPREHENSIVE METABOLIC 65335 ALT 33 IU/L 2012 Unknown COMPREHENSIVE METABOLIC 61395 BUN 16 MG/DL 2012 Unknown COMPREHENSIVE METABOLIC 66790 ALBUMIN 4.8 GM/DL 2012 Unknown COMPREHENSIVE METABOLIC 79319 CHLORIDE 104 MMOL/L 05/04 Unknown COMPREHENSIVE METABOLIC 36618 BILI TOT 0.5 MG/DL 2012 Unknown COMPREHENSIVE METABOLIC 08339 ALK PHOS 70 U/L 2012 Unknown COMPREHENSIVE METABOLIC 84986 SODIUM 138 MMOL/L 05/04 Unknown COMPREHENSIVE METABOLIC 28802 CREATININE 1.08 MG/DL 04/07 Unknown COMPREHENSIVE METABOLIC 03960 CALCIUM 9.7 MG/DL 2012 Unknown COMPREHENSIVE METABOLIC 39845 POTASSIUM 4.4 MMOL/L 05/04 Unknown COMPREHENSIVE METABOLIC 70803 PROT TOT 6.8 GM/DL 2012 Unknown COMPREHENSIVE METABOLIC 15774 Glucose 114 MG/DL 2012 Unknown COMPREHENSIVE METABOLIC 51044 BICARB 27 MMOL/L 2012 Unknown COMPREHENSIVE METABOLIC 49925 ANION GAP 7 MEQ/L 2012 Unknown FREE T4 35807 FREE T4 1.11 NG/DL 05/04/2012 Unknown GFR CALC 9934189 GFR AA >60 ML/MIN 05/04/2012 Unknown GFR CALC 7754627 GFR NON-AA >60 ML/MIN 05/04/2012 Unknown GLYCOSYLATED HEMOGLOBIN TEST 94503 A1C HPLC 36963-7 5.8 % 0 10/29/2011 Unknown COMPREHENSIVE METABOLIC 88822 AST 17 U/L 2011 Unknown COMPREHENSIVE METABOLIC 78420 ALT 21 IU/L 2011 Unknown COMPREHENSIVE METABOLIC 69602 BUN 17 MG/DL 2011 Unknown COMPREHENSIVE METABOLIC 06760 ALBUMIN 4.8 GM/DL 2011 Unknown COMPREHENSIVE METABOLIC 93388 CHLORIDE 106 MMOL/L 10/28 Unknown COMPREHENSIVE METABOLIC 77163 BILI TOT 0.6 MG/DL 2011 Unknown COMPREHENSIVE METABOLIC 44928 ALK PHOS 57 U/L 2011 Unknown COMPREHENSIVE METABOLIC 45826 SODIUM 139 MMOL/L 10/28 Unknown COMPREHENSIVE METABOLIC 34131 CREATININE 1.08 MG/DL 10/05 Unknown COMPREHENSIVE METABOLIC 63441 CALCIUM 9.6 MG/DL 2011 Unknown COMPREHENSIVE METABOLIC 17783 POTASSIUM 4.4 MMOL/L 10/28 Unknown COMPREHENSIVE METABOLIC 07282 PROT TOT 6.9 GM/DL 2011 Unknown COMPREHENSIVE METABOLIC 70482 Glucose 104 MG/DL 2011 Unknown COMPREHENSIVE METABOLIC 75778 BICARB 25 MMOL/L 2011 Unknown COMPREHENSIVE METABOLIC 22196 ANION GAP 8 MEQ/L 2011 Unknown LIPID GROUP 77908 HDL TEST 39 MG/DL 10/29/2011 Unknown LIPID GROUP 45758 TRIG 176 MG/DL 10/29/2011 Unknown LIPID GROUP 95721 TEST LDL 70 MG/DL 10/29/2011 Unknown LIPID GROUP 73972 CHOL 144 MG/DL 10/29/2011 Unknown LIPID GROUP 45689 RCHOL/HDL 3.69 RATIO 10/29/2011 Unknow n GFR CALC 7108826 GFR AA >60 ML/MIN 10/29/2011 Unknown GFR CALC 7180022 GFR NON-AA >60 ML/MIN 10/29/2011 Unknown GFR CALC 2730805 GFR AA >60 ML/MIN 03/14/2011 Unknown GFR CALC 4843238 GFR NON-AA >60 ML/MIN 03/14/2011 Unknown GLYCOSYLATED HEMOGLOBIN TEST 71529 A1C HPLC 21970-3 5.7 % 1 05/15/2010 Unknown COMPREHENSIVE METABOLIC 96772 AST 18 U/L 2010 Unknown COMPREHENSIVE METABOLIC 32652 ALT 25 IU/L 2010 Unknown COMPREHENSIVE METABOLIC 33769 BUN 15 MG/DL 2010 Unknown COMPREHENSIVE METABOLIC 58556 ALBUMIN 4.6 GM/DL 2010 Unknown COMPREHENSIVE METABOLIC 06722 CHLORIDE 107 MMOL/L 03/14 Unknown COMPREHENSIVE METABOLIC 52969 BILI TOT 0.6 MG/DL 2010 Unknown COMPREHENSIVE METABOLIC 93087 ALK PHOS 54 U/L 2010 Unknown COMPREHENSIVE METABOLIC 47445 SODIUM 140 MMOL/L 03/14 Unknown COMPREHENSIVE METABOLIC 33158 CREATININE 1.02 MG/DL 12/2010 Unknown COMPREHENSIVE METABOLIC 65746 CALCIUM 9.4 MG/DL 2010 Unknown COMPREHENSIVE METABOLIC 11911 POTASSIUM 4.6 MMOL/L 03/14 Unknown COMPREHENSIVE METABOLIC 64185 PROT TOT 7.0 GM/DL 2010 Unknown COMPREHENSIVE METABOLIC 70727 Glucose 107 MG/DL 2010 Unknown COMPREHENSIVE METABOLIC 18215 BICARB 28 MMOL/L 2010 Unknown COMPREHENSIVE METABOLIC 84408 ANION GAP 5 MEQ/L 2010 Unknown LIPID GROUP 92798 HDL TEST 39 MG/DL 03/14/2011 Unknown LIPID GROUP 91256 TRIG 157 MG/DL 03/14/2011 Unknown LIPID GROUP 68817 TEST LDL 66 MG/DL 03/14/2011 Unknown LIPID GROUP 35308 CHOL 136 MG/DL 03/14/2011 Unknown LIPID GROUP 99077 RCHOL/HDL 3.49 RATIO 03/14/2011 Unknow n GFR CALC 8894009 GFR AA >60 ML/MIN 11/11/2010 Unknown GFR CALC 5085737 GFR NON-AA >60 ML/MIN 11/11/2010 Unknown LIPID GROUP 32650 HDL TEST 39 MG/DL 11/11/2010 Unknown LIPID GROUP 70365 TRIG 212 MG/DL 11/11/2010 Unknown LIPID GROUP 32082 TEST LDL 67 MG/DL 11/11/2010 Unknown LIPID GROUP 85283 CHOL 148 MG/DL 11/11/2010 Unknown LIPID GROUP 15239 RCHOL/HDL 3.79 RATIO 11/11/2010 Unknow n COMPREHENSIVE METABOLIC 39271 AST 17 U/L 2010 Unknown COMPREHENSIVE METABOLIC 89694 ALT 21 IU/L 2010 Unknown COMPREHENSIVE METABOLIC 76068 BUN 16 MG/DL 2010 Unknown COMPREHENSIVE METABOLIC 82306 ALBUMIN 4.6 GM/DL 2010 Unknown COMPREHENSIVE METABOLIC 14687 CHLORIDE 106 MMOL/L 11/11 Unknown COMPREHENSIVE METABOLIC 69499 BILI TOT 0.5 MG/DL 2010 Unknown COMPREHENSIVE METABOLIC 06072 ALK PHOS 61 U/L 2010 Unknown COMPREHENSIVE METABOLIC 01119 SODIUM 139 MMOL/L 11/11 Unknown COMPREHENSIVE METABOLIC 60835 CREATININE 1.00 MG/DL 11/2010 Unknown COMPREHENSIVE METABOLIC 87825 CALCIUM 9.5 MG/DL 2010 Unknown COMPREHENSIVE METABOLIC 90861 POTASSIUM 4.5 MMOL/L 11/11 Unknown COMPREHENSIVE METABOLIC 97898 PROT TOT 6.9 GM/DL 2010 Unknown COMPREHENSIVE METABOLIC 40381 Glucose 111 MG/DL 2010 Unknown COMPREHENSIVE METABOLIC 99292 BICARB 26 MMOL/L 2010 Unknown COMPREHENSIVE METABOLIC 89283 ANION GAP 7 MEQ/L 2010 Unknown HEMOGLOBIN A1C (GLYCOSYLATED) 46274 A1C HPLC 45252-9 5.6 % 07/24/2010 Unknown GFR CALC 9941713 GFR AA >60 ML/MIN 07/23/2010 Unknown GFR CALC 2582621 GFR NON-AA >60 ML/MIN 07/23/2010 Unknown COMPREHENSIVE METABOLIC 86891 AST 19 U/L 2010 Unknown COMPREHENSIVE METABOLIC 97440 ALT 33 IU/L 2010 Unknown COMPREHENSIVE METABOLIC 55891 BUN 14 MG/DL 2010 Unknown COMPREHENSIVE METABOLIC 32774 ALBUMIN 4.7 GM/DL 2010 Unknown COMPREHENSIVE METABOLIC 98001 CHLORIDE 107 MMOL/L 07/23 Unknown COMPREHENSIVE METABOLIC 77960 BILI TOT 0.4 MG/DL 2010 Unknown COMPREHENSIVE METABOLIC 20994 ALK PHOS 80 U/L 2010 Unknown COMPREHENSIVE METABOLIC 70900 SODIUM 141 MMOL/L 07/23 Unknown COMPREHENSIVE METABOLIC 57157 CREATININE 0.97 MG/DL 07/05 Unknown COMPREHENSIVE METABOLIC 98698 CALCIUM 9.5 MG/DL 2010 Unknown COMPREHENSIVE METABOLIC 35286 POTASSIUM 4.1 MMOL/L 07/23 Unknown COMPREHENSIVE METABOLIC 00418 PROT TOT 6.8 GM/DL 2010 Unknown COMPREHENSIVE METABOLIC 62900 Glucose 120 MG/DL 2010 Unknown COMPREHENSIVE METABOLIC 90220 BICARB 26 MMOL/L 2010 Unknown COMPREHENSIVE METABOLIC 92207 ANION GAP 8 MEQ/L 2010 Unknown LIPID GROUP 24826 HDL TEST 41 MG/DL 07/23/2010 Unknown LIPID GROUP 31455 TRIG 175 MG/DL 07/23/2010 Unknown LIPID GROUP 36671 TEST LDL 72 MG/DL 07/23/2010 Unknown LIPID GROUP 15419 CHOL 148 MG/DL 07/23/2010 Unknown LIPID GROUP 72142 RCHOL/HDL 3.61 RATIO 07/23/2010 Unknow n PSA FREE AND TOTAL 12072|00266 % FREE PSA FOOTNOTE % 011 Unknown PSA FREE AND TOTAL 07428|88656 XPSA TOTAL 0.83 NG/ML 011 Unknown PSA FREE AND TOTAL 53243|26122 XPSA FREE 0.13 NG/ML 04/26/19 11 Unknown VITAMIN D TOTAL (25 HYDROXY) 99010 VIT D TOTL 26 NG/ML 04/22/2010 Unknown TESTOSTERONE TOTAL 59343 TESTOS TO 387 NG/DL 04/19/2010 Unknown GFR CALC 7220610 GFR AA >60 ML/MIN 04/19/2010 Unknown GFR CALC 0289432 GFR NON-AA >60 ML/MIN 04/19/2010 Unknown COMPLETE BLOOD COUNT 00688 WBC 7.0 10e9/L 04/19/19 11 Unknown COMPLETE BLOOD COUNT 02341 RBC 5.07 10e12/L 2010 Unknown COMPLETE BLOOD COUNT 73471 HGB 15.6 g/dL 1 Unknown COMPLETE BLOOD COUNT 90524 HCT DET 46.2 % 1 Unknown COMPLETE BLOOD COUNT 30509 MCV 91.1 fL 1 Unknown COMPLETE BLOOD COUNT 71907 MCH 30.8 pg 1 Unknown COMPLETE BLOOD COUNT 65511 MCHC 33.8 g/dL 1 Unknown COMPLETE BLOOD COUNT 72124 PLT 205 10e9/L 04/19/19 11 Unknown COMPLETE BLOOD COUNT 04685 MPV 11.1 fL 1 Unknown COMPLETE BLOOD COUNT 14358 SAMIR % 62.4 % 1 Unknown COMPLETE BLOOD COUNT 38674 LY % 28.5 % 1 Unknown COMPLETE BLOOD COUNT 45749 MON % 6.9 % 1 Unknown COMPLETE BLOOD COUNT 39474 EOS % 2.1 % 1 Unknown COMPLETE BLOOD COUNT 73299 BASO % 0.1 % 1 Unknown COMPLETE BLOOD COUNT 41319 RDW 13.4 % 1 Unknown COMPLETE BLOOD COUNT 90334 ABS SAMIR 4.37 10e9/L 011 Unknown COMPLETE BLOOD COUNT 46754 ABS LYMPH 2.00 10e9/L 011 Unknown COMPLETE BLOOD COUNT 50653 ABS MONO 0.48 10e9/L 011 Unknown COMPLETE BLOOD COUNT 99925 ABS EOS 0.15 10e9/L 011 Unknown COMPLETE BLOOD COUNT 91723 ABS BASO 0.01 10e9/L 011 Unknown COMPLETE BLOOD COUNT 61279 RDW-SD 43.8 fL 1 Unknown LIPID GROUP 73448 HDL TEST 39 MG/DL 04/19/2010 Unknown LIPID GROUP 65327 TRIG 244 MG/DL 04/19/2010 Unknown LIPID GROUP 88782 TEST LDL 168 MG/DL 04/19/2010 Unknown LIPID GROUP 29323 CHOL 256 MG/DL 04/19/2010 Unknown LIPID GROUP 13210 RCHOL/HDL 6.56 RATIO 04/19/2010 Unknow n COMPREHENSIVE METABOLIC 35496 AST 28 U/L 2010 Unknown COMPREHENSIVE METABOLIC 79350 ALT 46 IU/L 2010 Unknown COMPREHENSIVE METABOLIC 79173 BUN 14 MG/DL 2010 Unknown COMPREHENSIVE METABOLIC 57910 ALBUMIN 4.9 GM/DL 2010 Unknown COMPREHENSIVE METABOLIC 47372 CHLORIDE 104 MMOL/L 04/19 Unknown COMPREHENSIVE METABOLIC 21783 BILI TOT 0.8 MG/DL 2010 Unknown COMPREHENSIVE METABOLIC 67785 ALK PHOS 71 U/L 2010 Unknown COMPREHENSIVE METABOLIC 53346 SODIUM 139 MMOL/L 04/19 Unknown COMPREHENSIVE METABOLIC 05781 CREATININE 1.06 MG/DL 04/06 Unknown COMPREHENSIVE METABOLIC 28182 CALCIUM 9.9 MG/DL 2010 Unknown COMPREHENSIVE METABOLIC 51378 POTASSIUM 4.3 MMOL/L 04/19 Unknown COMPREHENSIVE METABOLIC 75705 PROT TOT 7.2 GM/DL 2010 Unknown COMPREHENSIVE METABOLIC 58249 Glucose 99 MG/DL 2010 Unknown COMPREHENSIVE METABOLIC 76835 BICARB 28 MMOL/L 2010 Unknown COMPREHENSIVE METABOLIC 91274 ANION GAP 7 MEQ/L 2010 Unknown FREE T4 10820 FREE T4 1.26 NG/DL 04/19/2010 Unknown Procedures Procedure Codes Date ROUTINE VENIPUNCTURE CPT-4: 24764 08/24/2019 COMPREHEN METABOLIC PANEL CPT-4: 68485 08/24/2019 A1C HPLC CPT-4: 96943 08/24/2019 ROUTINE VENIPUNCTURE CPT-4: 87964 05/24/2019 COMPREHEN METABOLIC PANEL CPT-4: 86155 05/24/2019 A1C HPLC CPT-4: 47840 05/24/2019 FLU VACC PRSV FREE INC ANTIG 65 AND OLDER CPT-4: 92600 01/26/2019 FLU VACC PRSV FREE INC ANTIG 65 AND OLDER CPT-4: 42832 01/26/2019 ADMIN INFLUENZA VIRUS VAC CPT-4: G0008 01/26/2019 ROUTINE VENIPUNCTURE CPT-4: 60480 01/26/2019 COMPREHEN METABOLIC PANEL CPT-4: 32121 01/26/2019 COMPLETE CBC W/AUTO DIFF WBC CPT-4: 29205 01/26/2019 LIPID PANEL CPT-4: 71590 01/26/2019 A1C HPLC CPT-4: 11689 01/26/2019 ROUTINE VENIPUNCTURE CPT-4: 09250 09/30/2018 METABOLIC PANEL TOTAL CA CPT-4: 97467 09/30/2018 URINALYSIS NONAUTO W/O SCOPE CPT-4: 38625 08/19/2018 URINE CULTURE/ COLONY COUNT CPT-4: 71837 08/19/2018 MICROALBUMIN QUANTITATIVE CPT-4: 36424 08/19/2018 ROUTINE VENIPUNCTURE CPT-4: 54880 08/16/2018 ASSAY THYROID STIM HORMONE CPT-4: 39854 08/16/2018 COMPREHEN METABOLIC PANEL CPT-4: 00662 08/16/2018 COMPLETE CBC W/AUTO DIFF WBC CPT-4: 53337 08/16/2018 LIPID PANEL CPT-4: 35327 08/16/2018 A1C HPLC CPT-4: 22005 08/16/2018 LIPID PANEL CPT-4: 70651 05/05/2018 COMPREHEN METABOLIC PANEL CPT-4: 19755 05/05/2018 ROUTINE VENIPUNCTURE CPT-4: 67632 05/05/2018 A1C HPLC CPT-4: 09309 05/05/2018 COMPLETE CBC W/AUTO DIFF WBC CPT-4: 13938 05/05/2018 ASSAY THYROID STIM HORMONE CPT-4: 65484 05/05/2018 MICROALBUMIN QUANTITATIVE CPT-4: 00107 01/19/2018 PRESCRIP TRANSMIT VIA ERX SY CPT-4: G8553 01/19/2018 ROUTINE VENIPUNCTURE CPT-4: 46708 01/13/2018 COMPREHEN METABOLIC PANEL CPT-4: 59586 01/13/2018 A1C HPLC CPT-4: 99583 01/13/2018 LIPID PANEL CPT-4: 82446 01/13/2018 ASSAY OF PSA TOTAL CPT-4: 05301 01/13/2018 ASSAY THYROID STIM HORMONE CPT-4: 20980 01/13/2018 ROUTINE VENIPUNCTURE CPT-4: 58825 10/06/2017 COMPREHEN METABOLIC PANEL CPT-4: 72343 10/06/2017 COMPLETE CBC W/AUTO DIFF WBC CPT-4: 98066 10/06/2017 LIPID PANEL CPT-4: 86642 10/06/2017 A1C HPLC CPT-4: 68580 10/06/2017 VITAMIN B-12 CPT-4: 10/06/2017 DESTRUCT PREMALG LESION (Cryosurgery) CPT-4: 94584 DESTRUCT PREMALG LES 2-14 CPT-4: 36060 04/23/2017 PRESCRIP TRANSMIT VIA ERX SY CPT-4: G8553 03/11/2017 ROUTINE VENIPUNCTURE CPT-4: 96077 03/05/2017 ASSAY OF FREE THYROXINE CPT-4: 45584 03/05/2017 ASSAY THYROID STIM HORMONE CPT-4: 58592 03/05/2017 COMPREHEN METABOLIC PANEL CPT-4: 27904 03/05/2017 COMPLETE CBC W/AUTO DIFF WBC CPT-4: 73310 03/05/2017 LIPID PANEL CPT-4: 89542 03/05/2017 A1C HPLC CPT-4: 33086 03/05/2017 ROUTINE VENIPUNCTURE CPT-4: 60350 06/16/2016 ASSAY OF FREE THYROXINE CPT-4: 80522 06/16/2016 ASSAY THYROID STIM HORMONE CPT-4: 68435 06/16/2016 COMPREHEN METABOLIC PANEL CPT-4: 74802 06/16/2016 COMPLETE CBC W/AUTO DIFF WBC CPT-4: 67400 06/16/2016 LIPID PANEL CPT-4: 61655 06/16/2016 A1C HPLC CPT-4: 91447 06/16/2016 ROUTINE VENIPUNCTURE CPT-4: 52337 03/06/2016 ASSAY OF FREE THYROXINE CPT-4: 01426 03/06/2016 ASSAY THYROID STIM HORMONE CPT-4: 38502 03/06/2016 COMPREHEN METABOLIC PANEL CPT-4: 85607 03/06/2016 COMPLETE CBC W/AUTO DIFF WBC CPT-4: 07257 03/06/2016 LIPID PANEL CPT-4: 71198 03/06/2016 A1C HPLC CPT-4: 86942 03/06/2016 PRESCRIP TRANSMIT VIA ERX SY CPT-4: G8553 09/10/2015 PNEUMOCOCCAL VACC 23 ROSANNE IM CPT-4: 97603 09/06/2015 ADMIN PNEUMOCOCCAL VACCINE CPT-4: G0009 09/06/2015 ROUTINE VENIPUNCTURE CPT-4: 63046 08/31/2015 COMPREHEN METABOLIC PANEL CPT-4: 86898 08/31/2015 COMPLETE CBC W/AUTO DIFF WBC CPT-4: 22252 08/31/2015 LIPID PANEL CPT-4: 52101 08/31/2015 ASSAY OF PSA TOTAL CPT-4: 25452 08/31/2015 A1C HPLC CPT-4: 88857 08/31/2015 ASSAY OF FREE THYROXINE CPT-4: 53323 08/31/2015 ASSAY THYROID STIM HORMONE CPT-4: 39620 08/31/2015 PRESCRIP TRANSMIT VIA ERX SY CPT-4: G8553 06/29/2015 FLU VACC PRSV FREE INC ANTIG 65 AND OLDER CPT-4: 56041 01/17/2015 PNEUMOCOCCAL VACC 13 ROSANNE IM CPT-4: 89586 01/17/2015 ADMIN INFLUENZA VIRUS VAC CPT-4: G0008 01/17/2015 ADMIN PNEUMOCOCCAL VACCINE CPT-4: G0009 01/17/2015 DESTRUCT PREMALG LESION (Cryosurgery) CPT-4: 51026 PRESCRIP TRANSMIT VIA ERX SY CPT-4: G8553 01/17/2015 ROUTINE VENIPUNCTURE CPT-4: 00598 01/12/2015 COMPREHEN METABOLIC PANEL CPT-4: 63137 01/12/2015 COMPLETE CBC W/AUTO DIFF WBC CPT-4: 81579 01/12/2015 LIPID PANEL CPT-4: 30475 01/12/2015 A1C HPLC CPT-4: 70683 01/12/2015 DESTRUCT PREMALG LESION (Cryosurgery) CPT-4: 09656 ROUTINE VENIPUNCTURE CPT-4: 23441 08/15/2014 COMPREHEN METABOLIC PANEL CPT-4: 71483 08/15/2014 COMPLETE CBC W/AUTO DIFF WBC CPT-4: 81939 08/15/2014 LIPID PANEL CPT-4: 31151 08/15/2014 A1C HPLC CPT-4: 54159 08/15/2014 ASSAY OF PSA TOTAL CPT-4: 44593 08/15/2014 ASSAY OF FREE THYROXINE CPT-4: 88742 08/15/2014 ASSAY THYROID STIM HORMONE CPT-4: 02176 08/15/2014 ROUTINE VENIPUNCTURE CPT-4: 00542 12/14/2013 ASSAY OF FREE THYROXINE CPT-4: 53762 12/14/2013 ASSAY THYROID STIM HORMONE CPT-4: 97834 12/14/2013 COMPREHEN METABOLIC PANEL CPT-4: 64080 12/14/2013 COMPLETE CBC W/AUTO DIFF WBC CPT-4: 26295 12/14/2013 LIPID PANEL CPT-4: 60807 12/14/2013 A1C HPLC CPT-4: 95461 12/14/2013 ROUTINE VENIPUNCTURE CPT-4: 20996 06/08/2013 ASSAY OF FREE THYROXINE CPT-4: 34422 06/08/2013 ASSAY THYROID STIM HORMONE CPT-4: 35124 06/08/2013 COMPREHEN METABOLIC PANEL CPT-4: 57191 06/08/2013 COMPLETE CBC W/AUTO DIFF WBC CPT-4: 08015 06/08/2013 LIPID PANEL CPT-4: 86218 06/08/2013 A1C HPLC CPT-4: 56665 06/08/2013 ROUTINE VENIPUNCTURE CPT-4: 17280 11/11/2012 COMPREHEN METABOLIC PANEL CPT-4: 34714 11/11/2012 COMPLETE CBC W/AUTO DIFF WBC CPT-4: 67428 11/11/2012 LIPID PANEL CPT-4: 33679 11/11/2012 A1C GLYCOSYLATED HEMOGLOBIN TEST CPT-4: 87739 013 ASSAY THYROID STIM HORMONE CPT-4: 86005 11/11/2012 ROUTINE VENIPUNCTURE CPT-4: 27153 05/04/2012 ASSAY OF FREE THYROXINE CPT-4: 09878 05/04/2012 ASSAY THYROID STIM HORMONE CPT-4: 06305 05/04/2012 COMPREHEN METABOLIC PANEL CPT-4: 19948 05/04/2012 COMPLETE CBC W/AUTO DIFF WBC CPT-4: 22891 05/04/2012 LIPID PANEL CPT-4: 41897 05/04/2012 DESTRUCT PREMALG LESION (Cryosurgery) CPT-4: 54762 DESTRUCT PREMALG LES 2-14 CPT-4: 85959 03/02/2012 ROUTINE VENIPUNCTURE CPT-4: 08523 10/29/2011 COMPREHEN METABOLIC PANEL CPT-4: 44922 10/29/2011 LIPID PANEL CPT-4: 64293 10/29/2011 A1C GLYCOSYLATED HEMOGLOBIN TEST CPT-4: 62677 012 ROUTINE VENIPUNCTURE CPT-4: 56023 07/29/2011 COMPREHEN METABOLIC PANEL CPT-4: 09760 07/29/2011 LIPID PANEL CPT-4: 49551 07/29/2011 A1C GLYCOSYLATED HEMOGLOBIN TEST CPT-4: 75952 012 ROUTINE VENIPUNCTURE CPT-4: 27641 03/14/2011 COMPREHEN METABOLIC PANEL CPT-4: 51199 03/14/2011 LIPID PANEL CPT-4: 30154 03/14/2011 A1C GLYCOSYLATED HEMOGLOBIN TEST CPT-4: 34427 011 ROUTINE VENIPUNCTURE CPT-4: 87866 11/11/2010 COMPREHEN METABOLIC PANEL CPT-4: 24100 11/11/2010 LIPID PANEL CPT-4: 71580 11/11/2010 URINE CULTURE/ COLONY COUNT CPT-4: 21967 11/11/2010 URINALYSIS NONAUTO W/O SCOPE CPT-4: 86172 10/29/2010 URINE CULTURE/ COLONY COUNT CPT-4: 05820 10/29/2010 LIPID PANEL CPT-4: 76486 07/23/2010 COMPREHEN METABOLIC PANEL CPT-4: 72619 07/23/2010 ROUTINE VENIPUNCTURE CPT-4: 59371 07/23/2010 ROUTINE VENIPUNCTURE CPT-4: 67462 04/26/2010 PSA FREE AND TOTAL CPT-4: 22639|63692 04/26/2010 OCCULT BLOOD FECES CPT-4: 30167 04/24/2010 ROUTINE VENIPUNCTURE CPT-4: 49939 04/19/2010 COMPLETE CBC W/AUTO DIFF WBC CPT-4: 14637 04/19/2010 COMPREHEN METABOLIC PANEL CPT-4: 29464 04/19/2010 LIPID PANEL CPT-4: 80369 04/19/2010 TESTOSTERONE TOTAL - MALE CPT-4: 19078 04/19/2010 ASSAY THYROID STIM HORMONE CPT-4: 48329 04/19/2010 ASSAY OF FREE THYROXINE CPT-4: 55909 04/19/2010 VITAMIN D TOTAL (25 HYDROXY) CPT-4: 81677 04/19/2010 Vital Signs Date Vital 08/30/2019 Blood Pressure 1: 144/76 Code: 8480-6 Heart Rate 1: 84 bpm Respiratory Rate: 20 bpm SpO2: 98% Temperature: 36.9 (C) / 98.4 (F) We ight: 240 lbs 06/02/2019 Blood Pressure 1: 132/80 Code: 8480-6 BMI: 29.5 Code: 99858-2 Heart Rate 1: 64 bpm Height: 6'3" [...] 1: 112/70 Code: 8480-6 BMI: 28.9 Code: 78850-2 Heart Rate 1: 60 bpm Height: 6'3" Respiratory Rate: 20 bpm SpO2: 95% Tempera ture: 36.6 (C) / 97.9 (F) Weight: 231 lbs 01/19/2018 Blood Pressure 1: 150/82 Code: 8480-6 Heart Rate 1: 63 bpm Respiratory Rate: 18 bpm SpO2: 98% Temperature: 36.0 (C) / 96.8 (F) We ight: 225 lbs 10/15/2017 Blood Pressure 1: 126/82 Code: 8480-6 BMI: 27.9 Code: 53716-3 Heart Rate 1: 64 bpm Height: 6'3" Respiratory Rate: 20 bpm SpO2: 96% Tempera ture: 36.7 (C) / 98.1 (F) Weight: 223 lbs 04/23/2017 Blood Pressure 1: 136/74 Code: 8480-6 BMI: 28.7 Code: 73129-9 Heart Rate 1: 76 bpm Height: 6'3" Respiratory Rate: 20 bpm Temperature: 37 .0 (C) / 98.6 (F) Weight: 230 lbs 03/11/2017 Blood Pressure 1: 136/66 Code: 8480-6 BMI: 28.6 Code: 11652-9 Heart Rate 1: 60 bpm Height: 6'3" Respiratory Rate: 20 bpm Temperature: 36 .7 (C) / 98.1 (F) Weight: 229 lbs 07/09/2016 Blood Pressure 1: 132/80 Code: 8480-6 BMI: 27.7 Code: 30391-4 Heart Rate 1: 64 bpm Height: 6'3" Respiratory Rate: 20 bpm SpO2: 96% Tempera ture: 36.9 (C) / 98.4 (F) Weight: 222 lbs 03/10/2016 Blood Pressure 1: 134/78 Code: 8480-6 BMI: 28.5 Code: 94321-7 Heart Rate 1: 60 bpm Height: 6'3" Respiratory Rate: 20 bpm SpO2: 96% Tempera ture: 36.7 (C) / 98.1 (F) Weight: 228 lbs 09/12/2015 Blood Pressure 1: 136/78 Code: 8480-6 Heart Rate 1: 84 bpm Height: Respiratory Rate: 24 bpm SpO2: 97% Temperature: 36.4 (C) / 97.6 (F) We ight: 09/10/2015 Blood Pressure 1: 124/76 Code: 8480-6 BMI: 28.5 Code: 24141-7 Heart Rate 1: 76 bpm Height: 6'3" Respiratory Rate: 24 bpm SpO2: 97% Tempera ture: 36.4 (C) / 97.6 (F) Weight: 228 lbs 09/06/2015 Blood Pressure 1: 124 Code: 8480-6 BMI: 29.0 Code: 18614-8 Heart Rate 1: 66 bpm Height: 6'3" Respiratory Rate: 20 bpm SpO2: 97% Tempera ture: 36.4 (C) / 97.6 (F) Weight: 232 lbs 06/29/2015 Blood Pressure 1: 124 Code: 8480-6 Heart Rate 1: 88 bpm Height: Respiratory Rate: 20 bpm Temperature: 36.7 (C) / 98.1 (F) Weight: 01/17/2015 Blood Pressure 1: 124 Code: 8480-6 BMI: 27.7 Code: 22577-8 Heart Rate 1: 76 bpm Height: 6'3" Respiratory Rate: 20 bpm Temperature: 36 .6 (C) / 97.8 (F) Weight: 222 lbs 09/19/2014 Blood Pressure 1: 128/80 Code: 8480-6 BMI: 27.4 Code: 48376-6 Heart Rate 1: 64 bpm Height: 6'3" Respiratory Rate: 20 bpm Temperature: 36 .4 (C) / 97.6 (F) Weight: 219 lbs 10/17/2013 Blood Pressure 1: 116/70 Code: 8480-6 Heart Rate 1: 88 bpm Respiratory Rate: 20 bpm Temperature: 36.9 (C) / 98.4 (F) Weight: 220 lbs 09/23/2013 Blood Pressure 1: 124/80 Code: 8480-6 BMI: 28.7 Code: 62585-2 Heart Rate 1: 76 bpm Height: 6'3" Respiratory Rate: 20 bpm Temperature: 36 .8 (C) / 98.2 (F) Weight: 230 lbs 07/22/2013 Blood Pressure 1: 128/70 Code: 8480-6 He art Rate 1: 78 bpm 06/20/2013 Blood Pressure 1: 144/86 Code: 8480-6 BMI: 28.7 Code: 29053-5 Heart Rate 1: 92 bpm Height: 6'3" Respiratory Rate: 20 bpm Temperature: 36 .4 (C) / 97.6 (F) Weight: 230 lbs 11/25/2012 Blood Pressure 1: 128/80 Code: 8480-6 BMI: 27.5 Code: 57175-4 Heart Rate 1: 92 bpm Height: 6'3" Respiratory Rate: 20 bpm Temperature: 36 .8 (C) / 98.3 (F) Weight: 220 lbs 08/27/2012 Blood Pressure 1: 142/80 Code: 8480-6 BMI: 27.7 Code: 15620-0 Heart Rate 1: 76 bpm Height: 6'3" Respiratory Rate: 20 bpm Temperature: 36 .8 (C) / 98.3 (F) Weight: 222 lbs 05/11/2012 Blood Pressure 1: 136/80 Code: 8480-6 BMI: 27.7 Code: 76973-4 Heart Rate 1: 76 bpm Height: 6'3" Respiratory Rate: 20 bpm Temperature: 36 .8 (C) / 98.3 (F) Weight: 222 lbs 03/02/2012 Blood Pressure 1: 136/70 Code: 8480-6 BMI: 28.0 Code: 03450-5 Heart Rate 1: 80 bpm Height: 6'3" Respiratory Rate: 20 bpm Temperature: 36 .6 (C) / 97.8 (F) Weight: 224 lbs 12/11/2011 Blood Pressure 1: 142/80 Code: 8480-6 BMI: 27.1 Code: 06302-2 Heart Rate 1: 84 bpm Height: 6'3" Respiratory Rate: 20 bpm Temperature: 36 .9 (C) / 98.4 (F) Weight: 217 lbs 08/14/2011 Blood Pressure 1: 130/82 Code: 8480-6 He art Rate 1: 64 bpm 07/29/2011 Blood Pressure 1: 132/64 Code: 8480-6 BMI: 26.7 Code: 50980-5 Heart Rate 1: 72 bpm Height: 6'3" [...] 1: 142/88 Code: 8480-6 BMI: 26.4 Code: 60213-3 Heart Rate 1: 80 bpm Height: 6'3" [...] bite 09/10/2015 Patient noticed tick bite on Thursday morning on 09/08/15 at own home to [...] labs Encounters Encounter Performer Location Codes Date ([id number]) OFFICE/OUTPATIENT VISIT EST Diagnosis: Type 2 diabetes mellitus with hyperglycemia[ICD10: E11.65] Diagnosis: Essential hypertension[ICD10: I10] Diagnosis: Stress reaction[ICD10: F43.0] Najma OG [employer] CPT-4: 55766 08/30/2019 ([id number]) NURSE/OUTPATIENT VISIT EST Diagnosis: Essential (primary) hypertension[ICD10: I10] Diagnosis: Type 2 diabetes mellitus with hyperglycemia[ICD10: E11.65] Najma OG [employer] CPT-4: 84909 08/24/2019 ([id number]) OFFICE/OUTPATIENT VISIT EST Diagnosis: Essential (primary) hypertension[ICD10: I10] Diagnosis: Gastro-esophageal reflux disease without esophagitis[ICD10: K21.9] Diagnosis: Type 2 diabetes mellitus with hyperglycemia[ICD10: E11.65] Najma OG [employer] CPT-4: 69111 06/02/2019 ([id number]) NURSE/OUTPATIENT VISIT EST Diagnosis: Type 2 diabetes mellitus without complications[ICD10: E11.9] Diagnosis: Essential (primary) hypertension[ICD10: I10] Diagnosis: Mixed hyperlipidemia[ICD10: E78.2] Najma OG [employer] CPT-4: 24381 05/24/2019 ([id number]) OFFICE/OUTPATIENT VISIT EST Diagnosis: Essential (primary) hypertension[ICD10: I10] Diagnosis: Type 2 diabetes mellitus without complications[ICD10: E11.9] Diagnosis: Mixed hyperlipidemia[ICD10: E78.2] Najma OG [employer] CPT-4: 35954 01/31/2019 ([id number]) NURSE/OUTPATIENT VISIT EST Diagnosis: Mixed hyperlipidemia[ICD10: E78.2] Diagnosis: Type 2 diabetes mellitus without complications[ICD10: E11.9] Diagnosis: Essential (primary) hypertension[ICD10: I10] Diagnosis: Chronic kidney disease, unspecified[ICD10: N18.9] Najma OG [employer] CPT-4: 27861 01/26/2019 ([id number]) NURSE/OUTPATIENT VISIT EST Diagnosis: Chronic kidney disease, unspecified[ICD10: N18.9] Diagnosis: Essential (primary) hypertension[ICD10: I10] Najma OG [employer] CPT-4: 24376 09/30/2018 ([id number]) OFFICE/OUTPATIENT VISIT EST Diagnosis: Essential (primary) hypertension[ICD10: I10] Diagnosis: Type 2 diabetes mellitus without complications[ICD10: E11.9] Diagnosis: Mixed hyperlipidemia[ICD10: E78.2] Diagnosis: Unspecified kidney failure[ICD10: N19] Najma OG [employer] CPT-4: 62356 08/19/2018 ([id number]) NURSE/OUTPATIENT VISIT EST Diagnosis: Essential (primary) hypertension[ICD10: I10] Diagnosis: Type 1 diabetes mellitus with unspecified complications[ICD10: E10.8] Diagnosis: Mixed hyperlipidemia[ICD10: E78.2] Najma GODINEZ [employer] OG [employer] CPT-4: 98883 08/16/2018 ([id number]) OFFICE/OUTPATIENT VISIT EST Diagnosis: Essential (primary) hypertension[ICD10: I10] Diagnosis: Type 2 diabetes mellitus without complications[ICD10: E11.9] Diagnosis: Mixed hyperlipidemia[ICD10: E78.2] Najma GODINEZ [employer] O[employer] CPT-4: 52291 05/10/2018 ([id number]) NURSE/OUTPATIENT VISIT EST Diagnosis: Essential (primary) hypertension[ICD10: I10] Diagnosis: Mixed hyperlipidemia[ICD10: E78.2] Diagnosis: Type 1 diabetes mellitus with unspecified complications[ICD10: E10.8] Najma OG [employer] CPT-4: 80429 05/05/2018 ([id number]) OFFICE/OUTPATIENT VISIT EST Diagnosis: Type 2 diabetes mellitus without complications[ICD10: E11.9] Diagnosis: Mixed hyperlipidemia[ICD10: E78.2] Diagnosis: Nicotine dependence, unspecified, uncomplicated[ICD10: F17.200] Diagnosis: Essential (primary) hypertension[ICD10: I10] Najma OG [employer] CPT-4: 16701 01/19/2018 ([id number]) NURSE/OUTPATIENT VISIT EST Diagnosis: Type 1 diabetes mellitus with unspecified complications[ICD10: E10.8] Diagnosis: Essential (primary) hypertension[ICD10: I10] Diagnosis: Male erectile disorder[ICD10: F52.21] Diagnosis: Encounter for screening for malignant neoplasm of prostate[ICD10: Z12.5] Najma OG [employer] CPT-4: 64334 01/13/2018 ([id number]) OFFICE/OUTPATIENT VISIT EST Diagnosis: Type 2 diabetes mellitus without complications[ICD10: E11.9] Diagnosis: Essential (primary) hypertension[ICD10: I10] Diagnosis: Mixed hyperlipidemia[ICD10: E78.2] Najmaanaid GODINEZ [employer] OG [employer] CPT-4: 00330 10/15/2017 ([id number]) NURSE/OUTPATIENT VISIT EST Diagnosis: Type 2 diabetes mellitus without complications[ICD10: E11.9] Diagnosis: Mixed hyperlipidemia[ICD10: E78.2] Diagnosis: Essential (primary) hypertension[ICD10: I10] Diagnosis: Glossitis[ICD10: K14.0] Najma THAKKAR [employer] CPT-4: 14525 10/06/2017 ([id number]) OFFICE/OUTPATIENT VISIT EST Diagnosis: Type 2 diabetes mellitus without complications[ICD10: E11.9] Diagnosis: Mixed hyperlipidemia[ICD10: E78.2] Diagnosis: Essential (primary) hypertension[ICD10: I10] Najma OG [employer] CPT-4: 26820 03/11/2017 ([id number]) OFFICE/OUTPATIENT VISIT EST Diagnosis: Type 1 diabetes mellitus with unspecified complications[ICD10: E10.8] Diagnosis: Mixed hyperlipidemia[ICD10: E78.2] Diagnosis: Essential (primary) hypertension[ICD10: I10] Diagnosis: Other fatigue[ICD10: R53.83] Najma OG [employer] CPT-4: 94167 03/05/2017 ([id number]) OFFICE/OUTPATIENT VISIT EST Diagnosis: Type 2 diabetes mellitus without complications[ICD10: E11.9] Diagnosis: Mixed hyperlipidemia[ICD10: E78.2] Diagnosis: Essential (primary) hypertension[ICD10: I10] Diagnosis: Nicotine dependence, unspecified, uncomplicated[ICD10: F17.200] Najma OG [employer] CPT-4: 07615 07/09/2016 ([id number]) OFFICE/OUTPATIENT VISIT EST Diagnosis: Type 1 diabetes mellitus with unspecified complications[ICD10: E10.8] Diagnosis: Mixed hyperlipidemia[ICD10: E78.2] Diagnosis: Essential (primary) hypertension[ICD10: I10] Najma OG [employer] CPT-4: 08513 06/16/2016 ([id number]) OFFICE/OUTPATIENT VISIT EST Diagnosis: Type 2 diabetes mellitus without complications[ICD10: E11.9] Diagnosis: Mixed hyperlipidemia[ICD10: E78.2] Diagnosis: Essential (primary) hypertension[ICD10: I10] Najma OG [employer] [facility] CPT-4: 41999 03/10/2016 ([id number]) OFFICE/OUTPATIENT VISIT EST Diagnosis: Type 1 diabetes mellitus with unspecified complications[ICD10: E10.8] Diagnosis: Mixed hyperlipidemia[ICD10: E78.2] Diagnosis: Essential (primary) hypertension[ICD10: I10] Najma OG [employer] [facility] CPT-4: 62390 03/06/2016 ([id number]) OFFICE/OUTPATIENT VISIT EST Diagnosis: Bitten or stung by nonvenomous insect and other nonvenomous arthropods, subsequent encounter[ICD10: W57.XXXD] Diagnosis: Insect bite (nonvenomous), right thigh, subsequent encounter[ICD10: S70.361D] Barbara MANUELLINE Matilda OG [employer] [facility] CPT-4: 33930 11/2015 ([id number]) OFFICE/OUTPATIENT VISIT EST Diagnosis: Bitten or stung by nonvenomous insect and other nonvenomous arthropods, initial encounter[ICD10: W57.XXXA] Diagnosis: Insect bite (nonvenomous), right thigh, initial encounter[ICD10: S70.361A] Barbara ABBOTTQUELINE Matilda OG [employer] [facility] CPT-4: 16476 09/2015 ([id number]) OFFICE/OUTPATIENT VISIT EST Diagnosis: Mixed hyperlipidemia[ICD10: E78.2] Diagnosis: Essential (primary) hypertension[ICD10: I10] Diagnosis: Type 2 diabetes mellitus without complications[ICD10: E11.9] Diagnosis: Encounter for immunization[ICD10: Z23] Diagnosis: Encounter for screening for malignant neoplasm of colon[ICD10: Z12.11] Diagnosis: Abnormal weight gain[ICD10: R63.5] Barbara OG [employer] [facility] CPT-4: 15466 09/06/2015 ([id number]) OFFICE/OUTPATIENT VISIT EST Diagnosis: Type 2 diabetes mellitus without complications[ICD10: E11.9] Diagnosis: Mixed hyperlipidemia[ICD10: E78.2] Diagnosis: Essential (primary) hypertension[ICD10: I10] Diagnosis: Encounter for screening for malignant neoplasm of prostate[ICD10: Z12.5] Diagnosis: Other fatigue[ICD10: R53.83] Najma OG DO [facility] CPT-4: 71303 08/31/2015 OFFICE/OUTPATIENT VISIT EST Diagnosis: Diarrhea, unspecified[ICD10: R19.7] Henrietta SowMyriamJim OG DO [facility] CPT-4: 73812 06/29/2015 OFFICE/OUTPATIENT VISIT EST Diagnosis: PNEUMOCOCCAL VACCINE[ICD10: Z23] Diagnosis: FLU VACCINE[ICD10: Z23] Diagnosis: Essential (primary) hypertension[ICD10: I10] Diagnosis: Mixed hyperlipidemia[ICD10: E78.2] Diagnosis: Type 1 diabetes mellitus with unspecified complications[ICD10: E10.8] Diagnosis: Actinic keratosis[ICD10: L57.0] Najma OG [facility] CPT-4: 67260 01/17/2015 ([id number]) OFFICE/OUTPATIENT VISIT EST Diagnosis: Type 2 diabetes mellitus without complications[ICD10: E11.9] Diagnosis: Impaired fasting glucose[ICD10: R73.01] Diagnosis: Mixed hyperlipidemia[ICD10: E78.2] Diagnosis: Essential (primary) hypertension[ICD10: I10] Najma MANUELLINE Matilda OG [facility] CPT-4: 08436 01/12/2015 ([id number]) OFFICE/OUTPATIENT VISIT EST Diagnosis: - I - HYPERLIPIDEMIA NEC/NOS[ICD9: 272.4] Diagnosis: HYPERTENSION[ICD9: 401.9] Diagnosis: DM W/O COMPLICATION TYPE II[ICD9: 250.00] Diagnosis: ACTINIC KERATOSIS[ICD9: 702.0] Najma OG DO [facility] CPT-4: 60934 09/19/2014 ([id number]) OFFICE/OUTPATIENT VISIT EST Diagnosis: HYPERLIPIDEMIA NEC/NOS[ICD9: 272.4] Diagnosis: HYPERTENSION[ICD9: 401.9] Diagnosis: IMPAIRED FASTING GLUCOSE[ICD9: 790.21] Diagnosis: MALAISE AND FATIGUE[ICD9: 780.79] Najma Jenkins Matilda OG [employer] [facility] CPT-4: 76085 08/15/2014 ([id number]) OFFICE/OUTPATIENT VISIT EST Diagnosis: HYPERLIPIDEMIA NEC/NOS[ICD9: 272.4] Diagnosis: HYPERTENSION[ICD9: 401.9] Diagnosis: IMPAIRED FASTING GLUCOSE[ICD9: 790.21] Najma OG [facility] CPT-4: 73592 12/14/2013 ([id number]) OFFICE/OUTPATIENT VISIT EST Diagnosis: Post herpetic neuralgia[ICD9: 053.19] Najma [facility] CPT-4: 76671 10/17/2013 OFFICE/OUTPATIENT VISIT EST Diagnosis: Shingles[ICD9: 053.9] Diagnosis: Post herpetic neuralgia[ICD9: 053.19] Jeanie [facility] CPT-4: 16076 09/23/2013 ([id number]) OFFICE/OUTPATIENT VISIT EST Diagnosis: HYPERTENSION[ICD9: 401.9] Diagnosis: HYPERLIPIDEMIA NEC/NOS[ICD9: 272.4] Diagnosis: IMPAIRED FASTING GLUCOSE[ICD9: 790.21] Najma [facility] CPT-4: 91954 06/20/2013 ([id number]) OFFICE/OUTPATIENT VISIT EST Diagnosis: HYPERLIPIDEMIA NEC/NOS[ICD9: 272.4] Diagnosis: MALAISE AND FATIGUE[ICD9: 780.79] Diagnosis: ROUTINE MEDICAL EXAM[ICD9: V70.0] Diagnosis: HYPERTENSION[ICD9: 401.9] Diagnosis: IMPAIRED FASTING GLUCOSE[ICD9: 790.21] Najma [facility] CPT-4: 84075 06/08/2013 ([id number]) OFFICE/OUTPATIENT VISIT EST Diagnosis: HYPERLIPIDEMIA NEC/NOS[ICD9: 272.4] Diagnosis: HYPERTENSION[ICD9: 401.9] Diagnosis: IMPAIRED FASTING GLUCOSE[ICD9: 790.21] Diagnosis: DIARRHEA[ICD9: 787.91] Najma ELKINS [facility] CPT-4: 33587 11/25/2012 ([id number]) OFFICE/OUTPATIENT VISIT EST Diagnosis: HYPERLIPIDEMIA NEC/NOS[ICD9: 272.4] Diagnosis: HYPERTENSION[ICD9: 401.9] Diagnosis: IMPAIRED FASTING GLUCOSE[ICD9: 790.21] Diagnosis: MALAISE AND FATIGUE[ICD9: 780.79] Najma OG [employer] CPT-4: 65073 11/11/2012 OFFICE/OUTPATIENT VISIT EST Diagnosis: Fungal dermatitis[ICD9: 111.9] Diagnosis: Dry skin dermatitis[ICD9: 692.89] Henrietta Lubin FILI OG [employer] CPT-4: 73539 08/27/2012 ([id number]) OFFICE/OUTPATIENT VISIT EST Diagnosis: HYPERTENSION[ICD9: 401.9] Diagnosis: HYPERLIPIDEMIA NEC/NOS[ICD9: 272.4] Najma OG [employer] CPT-4: 99460 05/11/2012 ([id number]) OFFICE/OUTPATIENT VISIT EST Diagnosis: HYPERLIPIDEMIA NEC/NOS[ICD9: 272.4] Diagnosis: HYPERTENSION[ICD9: 401.9] Diagnosis: ROUTINE MEDICAL EXAM[ICD9: V70.0] Najma OG [employer] CPT-4: 44834 05/04/2012 ([id number]) OFFICE/OUTPATIENT VISIT EST Diagnosis: HYPERTENSION[ICD9: 401.9] Diagnosis: HYPERLIPIDEMIA NEC/NOS[ICD9: 272.4] Diagnosis: IMPAIRED FASTING GLUCOSE[ICD9: 790.21] Najma OG [employer] CPT-4: 07171 12/11/2011 ([id number]) OFFICE/OUTPATIENT VISIT EST Diagnosis: HYPERLIPIDEMIA NEC/NOS[ICD9: 272.4] Diagnosis: HYPERTENSION[ICD9: 401.9] Diagnosis: IMPAIRED FASTING GLUCOSE[ICD9: 790.21] Najma OG [employer] CPT-4: 43286 10/29/2011 ([id number]) OFFICE/OUTPATIENT VISIT EST Diagnosis: HYPERTENSION[ICD9: 401.9] Najma PAYAN [employer] CPT-4: 30581 08/14/2011 ([id number]) OFFICE/OUTPATIENT VISIT EST Diagnosis: HYPERTENSION[ICD9: 401.9] Diagnosis: IMPAIRED FASTING GLUCOSE[ICD9: 790.21] [facility]ajma [facility] CPT-4: 97860 07/29/2011 ([id number]) OFFICE/OUTPATIENT VISIT EST Diagnosis: HYPERTENSION[ICD9: 401.9] Najma SAMSON [facility] CPT-4: 46509 07/23/2011 ([id number]) OFFICE/OUTPATIENT VISIT EST Diagnosis: HYPERTENSION[ICD9: 401.9] Najma SAMSON [employer] CPT-4: 31427 06/24/2011 OFFICE/OUTPATIENT VISIT EST Diagnosis: HYPERTENSION[ICD9: 401.9] Najma SAMSON [employer] [facility] CPT-4: 59491 05/20/2011 OFFICE/OUTPATIENT VISIT EST Diagnosis: HYPERTENSION[ICD9: 401.9] Najma SAMSON [employer] [facility] CPT-4: 73562 04/15/2011 OFFICE/OUTPATIENT VISIT EST Diagnosis: HYPERLIPIDEMIA NEC/NOS[ICD9: 272.4] Diagnosis: IMPAIRED FASTING GLUCOSE[ICD9: 790.21] Najma LONGER [facility] CPT-4: 99892 03/18/2011 ([id number]) OFFICE/OUTPATIENT VISIT EST Najma OG DO [facility] CPT-4: 70381 07/30/2010 ([id number]) PREV VISIT, EST, AGE 40-64 Najma OG DO [facility] CPT-4: 82905 04/24/2010 Plan of Care Planned Activity Notes Codes Status Date Appointment: [facility]aj[facility] [phone] [id number] [facility] 09/01/2019 Visit Diagnosis Plan: Type 2 diabetes mellitus with hy perglycemia Discussion: Lab discussed Accuchecks daily Continue current meds Check CMP and HbA1C in 3mos then fwup ICD-9 : 250.02 ICD-10 : E11.65 08/30/2019 Visit Diagnosis Plan: Essential hypertension Discussio n: Stable ICD-9 : 401.9 ICD-10 : I10 08/30/2019 Visit Diagnosis Plan: Stress reaction Discussion: Rest art lexapro ICD-9 : 308.9 ICD-10 : F43.0 08/30/2019 Appointment: Najma Og WPtel: [address] [place], [place] [id number] US FOLLOW UP 08/30/2019 Patient Education: escitalopram oxalate- [employer] Co upon [id number] [email or web address] Completed 08/30/2019 Appointment: Najma Og WPtel: [address] [place], [place] [phone] US LAB 08/24/2019 Visit Diagnosis Plan: Type 2 diabetes mellitus with hy perglycemia Discussion: Lab discussed Accuchecks daily Continue current meds and work on lifestyle Check CMP and HbA1C in 3mos then fwup ICD-9 : 250.02 ICD-10 : E11.65 06/02/2019 Visit Diagnosis Plan: Gastro-esophageal reflux disease without esophagitis Discussion: Pepcid 20mg daily ICD-9 : 530.81 ICD-10 : K21.9 06/02/2019 Visit Diagnosis Plan: Essential (primary) hypertension Discussion: Stable ICD-9 : 401.9 ICD-10 : I10 06/02/2019 Appointment: Najma Og WPtel: [address] [place], [place] [phone] US FOLLOW UP 06/02/2019 Appointment: Najma Og WPtel: [address] [place], [place] [phone] US LAB 05/24/2019 Visit Diagnosis Plan: Essential [...] : E78.2 01/31/2019 Appointment: Najma Og WPtel: [address] [place] [address] US FOLLOW UP 01/31/2019 Appointment: Najma Og WPtel: [address] [place] [address] US LAB 01/26/2019 Appointment: Najma Og WPtel: [address] [place] [address] US LAB 09/30/2018 Visit Diagnosis Plan: Essential (primary) hypertension Discussion: Stable ICD-9 : 401.9 ICD-10 : I10 08/19/2018 Visit Diagnosis Plan: Type 2 diabetes mellitus without complications Discussion: Lab discussed Accuchecks daily Continue current meds Check CMP and HbA1C in 3mos then fwup ICD-9 : 250.00 ICD-10 : E11.9 08/19/2018 Visit Diagnosis Plan: Unspecified kidney failure Discu ssion: Culture urine, if negative will likely need renal US ICD-9 : 586 ICD-10 : N19 08/19/2018 Appointment: Najma Og WPtel: [address] [place] [address] FOLLOW UP 08/19/2018 Appointment: Najma Og WPtel: [address] [place] [address] US LAB 08/16/2018 Visit Diagnosis Plan: Type 2 diabetes mellitus without complications Discussion: Lab discussed Accuchecks daily Lifestyle change ICD-9 : 250.00 ICD-10 : E11.9 05/10/2018 Visit Diagnosis Plan: Mixed hyperlipidemia Discussion: Continue current meds Lifestyle change--Mediterranean diet with combo of cardio/weight bearing exercise Follow Up: 3 months ICD-9 : 272.4 ICD-10 : E78.2 05/10/2018 Visit Diagnosis Plan: Essential (primary) hypertension Discussion: Stable ICD-9 : 401.9 ICD-10 : I10 05/10/2018 Appointment: Najma Og WPtel: [address] [place], [place] [id number] [place] FOLLOW UP 05/10/2018 Patient Education: Low Back Pain Exercises: Illustration Completed 05/10/2018 Patient Education: Low Back Pain Exercises Completed 05/10/2018 Appointment: Najma Og WPtel: [address] [place], [place] [phone] US LAB 05/05/2018 Visit Diagnosis Plan: Type [...] 272.4 ICD-10 : E78.2 01/19/2018 Appointment: Najma gO WPtel: [address] [place], [place] [id number] [facility] FOLLOW UP 01/19/2018 Patient Education: Patient Medication Summary Completed 01/19/2018 Appointment: Najma Og WPtel: [address] [place], [place] [id number] [place] LAB 01/13/2018 Patient Education: Patient Medication Summary Completed 01/13/2018 Visit Diagnosis Plan: Type 2 diabetes mellitus without complications Discussion: Lab discussed Continue current meds Accuchecks daily Recommend shingrix ICD-9 : 250.00 ICD-10 : E11.9 10/15/2017 Visit Diagnosis Plan: Essential (primary) hypertension Discussion: Stable ICD-9 : 401.9 ICD-10 : I10 10/15/2017 Visit Diagnosis Plan: Mixed hyperlipidemia Discussion: Restart crestor at 5mg daily Make sure taking Vitamin D3 1000u daily Follow Up: 3 months ICD-9 : 272.2 ICD-10 : E78.2 10/15/2017 Appointment: Najma Og: [address] [place], [place] [id number] FOLLOW UP 10/15/2017 Patient Education: Patient Medication Summary Completed 10/15/2017 Appointment: Najma Og WPtel: [address] [place], [place] [id number] [place] LAB 10/06/2017 Patient Education: Patient Medication Summary Completed 10/06/2017 Visit Diagnosis Plan: Actinic keratosis Discussion: Cr yotherapy as above ICD-9 : 702.0 ICD-10 : L57.0 04/23/2017 Appointment: Najma Og WPtel: [address] [place], [place] [phone] OFFICE SURGERY 04/23/2017 Patient Education: Patient Medication Summary Completed 04/23/2017 Visit Diagnosis Plan: Essential (primary) hypertension Discussion: [...] ICD-9 : 272.2 ICD-10 : E78.2 03/11/2017 Visit Diagnosis Plan: Type 2 diabetes mellitus without complications Discussion: Lab discussed Accuchecks daily Continue current meds ICD-9 : 250.00 ICD-10 : E11.9 03/11/2017 Appointment: Najma Og WPtel: [address] [place], [place] [id number] FOLLOW UP 03/11/2017 Patient Education: Patient Medication Summary Completed 03/11/2017 Appointment: Najma Og WPtel: [address] [place], [place] [phone] [place] LAB 03/05/2017 Patient Education: Patient Medication Summary Completed 03/05/2017 Visit Diagnosis Plan: Mixed hyperlipidemia Discussion: Lab discussed Continue current meds ICD-9 : 272.2 ICD-10 : E78.2 07/09/2016 Visit Diagnosis Plan: Nicotine dependence, unspecified , uncomplicated Discussion: Smoking cessation ICD-9 : 305.1 ICD-10 : F17.200 07/09/2016 Visit Diagnosis Plan: Type 2 diabetes mellitus without complications Discussion: Lab discussed Accuchecks daily Continue metformin Follow Up: 3 months ICD-9 : 250.00 ICD-10 : E11.9 07/09/2016 Appointment: Najma Og WPtel: [address] [place], [place] [phone] [place] 07/08 lm ~sl 07/09 confirmed~sl FOLLOW UP 08/2016 Patient Education: Patient Medication Summary Completed 07/09/2016 Appointment: Najma Og WPtel: [address] [place] [address] [place] LAB 06/16/2016 Patient Education: Patient Medication Summary Completed 06/16/2016 Visit Plan: Lab discussed Accuchecks maribel ly Lifestyle change for 3mos then check CMP, HbA1C in 3mos Has had flu and pneumonia shot 03/10/2016 Appointment: Najma Og WPtel: [address] [place], [place] [phone] [place] 03/06 confirmed `sl FOLLOW UP 03/10/2016 Patient Education: Patient Medication Summary Completed 03/10/2016 Appointment: Najma Og WPtel: [address] [place], [place] [phone] [place] LAB 03/06/2016 Patient Education: Patient Medication Summary Completed 03/06/2016 Referral: Donavon Keller WPtel: [address] [place] [address] [id number] [place] Referral Completed 10/22/2015 Visit Plan: Tick bite area looks much be tter Continue current rxs and close monitoring Follow up if any new symptoms or worsening appearance 09/12/2015 Appointment: Barbara Brower [address] [place] [address] [place], [place] [phone] 09/10 confirmed~sl FOLLOW UP 09/12/2015 Patient Education: Patient Medication Summary Completed 09/12/2015 Visit Plan: Cover as above 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 topical steroids to calm down the inflammation(suspect most of redness is due to histamine response vs infection) Monitor closely Follow up in 2 days to recheck 09/10/2015 Appointment: Barbara Brower [address] [place] [address] ACUTE ILLNESS 09/10/2015 Patient Education: Patient Medication [...] consider shingles vaccine 09/06/2015 Appointment: Barbara Brower [address] [place] [address] FOLLOW UP 09/06/2015 Patient Education: Patient Medication Summary Completed 09/06/2015 Care Plan: Referral Order SNOMED-CT : [id number] Pending 09/06/2015 Appointment: Najma Og WPtel: [address] [place] [address] LAB 08/31/2015 Patient Education: Patient Medication Summary Completed 08/31/2015 Visit Plan: Offered aggressive (KUB, IV fluids, Labs) vs. conservative (oral hydration, treat symptoms, watchful waiting). Elects for conservative + labs. CBC & CMP at [facility] Discussed needed oral hydration (preferably with sports drinks), 24 hour clear liquid followed by BRAT diet and advance as tolerated Discussed s/s of worsening, go to UC/ER. 06/29/2015 Appointment: Henrietta Lubin WPtel: [address] [place], [place] [phone] ACUTE ILLNESS 06/29/2015 Patient Education: Patient Medication Summary Completed 06/29/2015 Visit Plan: Lab discussed Will keep meds the same Discussed diet/exercise at length Cryotherapy as above to AKs of arms Flu and Prevnar 13 given Trial of revatio per patient request for ED--warned of no nitrates Recheck 4mos 01/17/2015 Appointment: Najma Og WPtel: [address] [place], [place] [phone] 01/16 confirmed~sl FOLLOW UP 01/17/2015 Patient Education: Patient Medication Summary Completed 01/17/2015 Appointment: Najma Og WPtel: [address] [place] [address] [place] LAB 01/12/2015 Patient Education: Patient Medication Summary Completed 01/12/2015 Visit Plan: Lab discussed Start accuchec ks daily Cryotherapy as above 09/19/2014 Appointment: Najma Og WPtel: [address] [place] [address] [place] 09/18 confirmed -mf FOLLOW UP 09/19/2014 Patient Education: Patient Medication Summary Completed 09/19/2014 Appointment: Najma Og WPtel: [address] [place] [address] [place] LAB 08/15/2014 Patient Education: Patient Medication Summary Completed 08/15/2014 Appointment: Najma Og WPtel: [address] [place] [address] ACUTE ILLNESS 12/14/2013 Patient Education: Patient Medication Summary Completed 12/14/2013 Visit Plan: Patient using tylenol prn pa in Discussed possible shingles shot for booster in 9-12mos 10/17/2013 Appointment: Najma Og WPtel: [address] [place] [address] FOLLOW UP 10/17/2013 Patient Education: Patient Medication Summary Completed 10/17/2013 Appointment: Jeanie Briceño WPtel: [address] [place] [address] ACUTE ILLNESS 09/23/2013 Patient Education: Patient Medication Summary Completed 09/23/2013 Appointment: Najma Og WPtel: [address] [place] [address] BP CHECK 07/22/2013 Patient Education: Patient Medication Summary Completed 07/22/2013 Visit Plan: Lab discussed Discussed swit arun amlodopine to beta slim to see if helps with tremor BP check in 1mo 06/20/2013 Appointment: Najma Og WPtel: [address] [place], [place] [phone] 06/17 no answer FOLLOW UP 06/20/2013 Patient Education: Patient Medication Summary Completed 06/20/2013 Appointment: Najma Og WPtel: [address] [place], [place] [phone] LAB 06/08/2013 Patient Education: Patient Medication Summary Completed 06/08/2013 Visit Plan: BRAT diet and yogurt and gat orade Lab discussed Continue current meds Spot checks on BS 11/25/2012 Appointment: Najma Og WPtel: [address] [place], [place] [phone] 11/24 vm FOLLOW UP 11/25/2012 Patient Education: Patient Medication Summary Completed 11/25/2012 Appointment: Najma Og WPtel: [address] [place], [place] [phone] LAB 11/11/2012 Patient Education: Patient Medication Summary Completed 11/11/2012 Appointment: Henrietta Lubin WPtel: [address] [place], [place] [phone] WORK IN 08/27/2012 Patient Education: Patient Medication Summary Completed 08/27/2012 Visit Plan: Pt going to get new home BP moniter Continue crestor and restart fish oil and will check fasting lab in 6mos Lab results discussed 05/11/2012 Appointment: Najma Og WPtel: [address] [place], [place] [phone] 05/10 vm FOLLOW UP 05/11/2012 Patient Education: Patient Medication Summary Completed 05/11/2012 Appointment: Najma Og WPtel: [address] [place], [place] [phone] LAB 05/04/2012 Patient Education: Patient Medication Summary Completed 05/04/2012 Visit Plan: 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 and forehead 03/02/2012 Appointment: Najma Og WPtel: [address] [place], [place] [phone] 03/01 OFFICE SURGERY 03/02/2012 Patient Education: Patient Medication Summary Completed 03/02/2012 Visit Plan: Labs discussed--recheck lab end of Feb/mar Continue current meds and continue to moniter BS daily and BP 1-2 times a week Plan on cryotherapy this fall so can wear longsleeves after procedure See urology 12/11/2011 Appointment: Najma Og WPtel: [address] [place], [place] [phone] FOLLOW UP 12/11/2011 Patient Education: Patient Medication Summary Completed 12/11/2011 Appointment: Najma Og WPtel: [address] [place], [place] [phone] [place] LAB 10/29/2011 Patient Education: Patient Medication Summary Completed 10/29/2011 Appointment: Najma Og WPtel: [address] [place], [place] [phone] BP CHECK 08/14/2011 Patient Education: Patient Medication Summary Completed 08/14/2011 Appointment: Najma Og WPtel: [address] [place], [place] [phone] ACUTE ILLNESS 07/29/2011 Patient Education: Patient Medication Summary Completed 07/29/2011 Appointment: Najma Og WPtel: [address] [place], [place] [phone] BP CHECK 07/23/2011 Patient Education: Patient Medication Summary Completed 07/23/2011 Appointment: Najma Og WPtel: [address] [place], [place] [phone] BP CHECK 06/24/2011 Patient Education: Patient Medication Summary Completed 06/24/2011 Appointment: Najma Og WPtel: [address] [place], [place] [phone] BP CHECK 05/20/2011 Patient Education: Patient Medication Summary Completed 05/20/2011 Appointment: Najma Og WPtel: [address] [place] [address] BP CHECK 04/29/2011 Patient Education: Patient Medication Summary Completed 04/29/2011 Appointment: Najma Og WPtel: [address] [place], [place] [phone] BP CHECK 04/15/2011 Patient Education: Patient Medication Summary Completed 04/15/2011 Visit Plan: Continue current meds Add fi sh oil 1gm daily Glucometer given to use for accuchecks prn 03/18/2011 Appointment: Najma Ogtel: [address] [place] [address] FOLLOW UP 03/18/2011 Patient Education: Patient Medication Summary Completed 03/18/2011 Appointment: Najma Og WPtel: [address] [place] [address] [place] LAB 03/14/2011 Patient Education: Patient Medication Summary Completed 03/14/2011 Appointment: Najma Og WPtel: [address] [place] [address] [place] LAB 11/11/2010 Appointment: Najma Og WPtel: [address] [place], [place] [phone] [place] UA 11/11/2010 Patient Education: Patient Medication Summary Completed 11/11/2010 Appointment: Najma Og WPtel: [address] [place], [place] [phone] [place] LAB 10/29/2010 Patient Education: Patient Medication Summary Completed 10/29/2010 Appointment: Najma Og WPtel: [address] [place], [place] [phone] [place] FOLLOW UP 07/30/2010 Patient Education: Patient Medication Summary Completed 07/30/2010 [facility]ment[facility] [address] [facility] [facility] 07/23/2010 Patient Education: Patient Medication Summary Completed 07/23/2010 Appointment: Najma Og [facility]Ptel[facility] [address] [facility] [facility] 04/26/2010 Patient Education: Patient Medication Summary Completed 04/26/2010 Visit Plan: Add PSA to lab Restart Crest or at 10mg daily Trial of Wellbutrin to aid in smoking cessation Check Lipids and LFTs in 3mos 04/24/2010 Appointment: Najma Og WPtel: [address] [id number] FOLLOW UP 04/24/2010 Patient Education: Patient Medication Summary Completed 04/24/2010 Appointment: Najma Og WPtel: [address] [facility] [place] [facility] 04/19/2010 Patient Education: Patient Medication Summary Completed 04/19/2010 Referral: Donavon Keller WPtel: [address] [facility] [id number] [place] Referral Completed Instructions Comment . Lab discussed [...] conservative + labs. CBC & CMP at [facility] Discussed needed oral hydration (preferably with sports [...]
--- OUTSIDE RECORDS SUMMARY | 2019-10-14 22:27 | XMS REPORT | CCD ---
Author Author Inocente Og D.O. Organization [facility] Address [address] [place] [address] Phone Care Team Providers Care Sales Systems Engineer Name Role Phone Najma Og D.O. PP Unavailable CCM Unavailable Summary Purpose Interface Exchange Insurance Providers Payer name Policy type / Coverage type Covered democrat ID Effective Begin Date Effective End Date [employer] MEDICARE Medicare Part B [id number] Unknown [facility] Medicare Part B [id number] Un known Family history Father Diagnosis Age At Onset Diabetes mellitus Type 2 Unknown Myocardial infarction Unknown Brother Diagnosis Age At Onset Diabetes mellitus Type 2 Unknown Mother Diagnosis Age At Onset Osteoarthritis Unknown Cerebrovascular disease Unknown Social History Social History Element Codes Description Effective Dates Tobacco history SNOMED CT: 133374271 Never smoker 12/21/2014 Marital status Unknown 07/30/2010 [...] Start Date Stop Date Status Fill Instructions propranolol ER 80 mg capsule,24 hr,extended release RxNorm: 872381 TAKE 1 CAPSULE BY MOUTH ONCE DAILY 09/08/2019 12/06/2019 Active metformin ER 500 mg tablet,extended release 24 hr RxNorm: 86 0975 TAKE 1 TABLET BY MOUTH ONCE DAILY 09/08/2019 12/06/2019 Active escitalopram 10 mg tablet RxNorm: 771609 1 Tablet(s) Oral QD 201911/28/2019 Active fenofibrate micronized 134 mg capsule RxNorm: 992384 TA KE 1 CAPSULE BY MOUTH ONCE DAILY FOR TRIGLYCERIDES 07/08/2019 10/05/2019 Active amlodipine 5 mg tablet RxNorm: 812995 TAKE 1 TABLET BY MOUTH ON CE DAILY 06/16/2019 09/13/2019 Active metformin ER 500 mg tablet,extended release 24 hr RxNorm: 86 0975 TAKE 1 TABLET BY MOUTH ONCE DAILY 06/10/2019 09/07/2019 Inactive propranolol ER 80 mg capsule,24 hr,extended release RxNorm: 277435 TAKE 1 CAPSULE BY MOUTH ONCE DAILY 06/10/2019 09/07/2019 Inactive Vitamin D3 25 mcg (1,000 unit) capsule RxNorm: 057578 1 Capsule(s) Oral two times a day 06/02/2019 No Stop Date Active turmeric 400 mg capsule RxNorm: 1 Capsule(s) Oral QD 06/02/2019 No Stop Date Active Fish Oil 120 mg-180 mg-500 mg capsule RxNorm: 2 Capsule(s) Ora l QD 06/02/2019 No Stop Date Active 16.2 mg-0.1037 mg-0.0194 mg tablet RxNorm: 9858904 1 Tablet(s) Oral four times a day as needed abdominal pain/diarrhea 06/02/2019 No Stop D ate Active fenofibrate micronized 134 mg capsule RxNorm: 321698 1 Capsule(s) Oral QD for triglycerides 04/14/2019 07/07/2019 Inactive amlodipine 5 mg tablet RxNorm: 856410 TAKE 1 TABLET BY MOUTH ON CE DAILY 03/22/2019 06/15/2019 Inactive metformin ER 500 mg tablet,extended release 24 hr RxNorm: 86 0975 TAKE 1 TABLET BY MOUTH ONCE DAILY 03/15/2019 06/09/2019 Inactive propranolol ER 80 mg capsule,24 hr,extended release RxNorm: 666912 TAKE 1 CAPSULE BY MOUTH ONCE DAILY 03/15/2019 06/09/2019 Inactive amlodipine 5 mg tablet RxNorm: 249287 1 Tablet(s) PO QD 12/27/2018 Inactive fenofibrate micronized 134 mg capsule RxNorm: 101964 TA KE 1 CAPSULE BY MOUTH ONCE DAILY FOR TRIGLYCERIDES 10/11/2018 04/13/2019 Inactive amlodipine 5 mg tablet RxNorm: 563960 1 Tablet(s) PO QD 09/30/2018 Inactive metformin ER 500 mg tablet,extended release 24 hr RxNorm: 86 0975 TAKE 1 TABLET BY MOUTH ONCE DAILY 09/21/2018 03/14/2019 Inactive propranolol ER 80 mg capsule,24 hr,extended release RxNorm: 575679 TAKE 1 CAPSULE BY MOUTH ONCE DAILY 09/21/2018 03/14/2019 Inactive amlodipine 5 mg tablet RxNorm: 138832 1 Tablet(s) PO QD 08/25/2018 Inactive amlodipine 5 mg tablet RxNorm: 334365 1 Tablet(s) PO QD 08/25/2018 Inactive lisinopril 40 mg tablet RxNorm: 759391 TAKE 1 TABLET BY MOUTH O NCE DAILY 07/21/2018 08/24/2018 Inactive fenofibrate micronized 134 mg capsule RxNorm: 288773 TA KE 1 CAPSULE BY MOUTH ONCE DAILY FOR TRIGLYCERIDES 07/12/2018 10/10/2018 Inactive propranolol ER 80 mg capsule,24 hr,extended release RxNorm: 012935 TAKE 1 CAPSULE BY MOUTH ONCE DAILY 06/21/2018 09/20/2018 Inactive lisinopril 40 mg tablet RxNorm: 551227 TAKE 1 TABLET BY MOUTH O NCE DAILY 04/26/2018 07/20/2018 Inactive metformin ER 500 mg tablet,extended release 24 hr RxNorm: 369504 1 Tablet(s) QD 03/31/2018 09/20/2018 Inactive lisinopril 40 mg tablet RxNorm: 031007 TAKE 1 TABLET BY MOUTH O NCE DAILY 01/28/2018 04/25/2018 Inactive Vitamin D3 5,000 unit tablet RxNorm: 967864 1 Tablet(s) PO QD 01/1908/18/2018 Inactive fenofibrate micronized 134 mg capsule RxNorm: 976642 1 Capsule(s) PO QD for triglycerides 01/19/2018 07/11/2018 Inactive metformin ER 500 mg tablet,extended release 24 hr RxNorm: 068660 1 Tablet(s) QD 12/31/2017 03/30/2018 Inactive metformin ER 500 mg tablet,extended release 24 hr RxNorm: 561952 Tablet(s) 12/30/2017 12/30/2017 Inactive propranolol ER 80 mg capsule,24 hr,extended release RxNorm: 619462 1 Capsule(s) PO QD 12/17/2017 06/14/2018 Inactive metformin ER 500 mg tablet,extended release 24 hr RxNorm: 86 0975 1 Tablet(s) PO QD DUE FOR LABS AND APPT 12/02/2017 12/30/2017 Inactive Crestor 10 mg tablet RxNorm: 113405 TAKE ONE TABLET BY MOUTH ON CE DAILY 11/01/2017 01/18/2018 Inactive lisinopril 40 mg tablet RxNorm: 299503 TAKE ONE TABLET BY MOUTH ONCE DAILY [...] ER 80 mg capsule,24 hr,extended release RxNorm: 263671 1 Capsule(s) PO QD DUE FOR APPT 09/08/2017 12/17/2017 Inactive Crestor 10 mg tablet RxNorm: 918831 1 Tablet(s) PO QD T CHELSI ONE TABLET BY MOUTH DAILY 03/11/2017 09/06/2017 Inactive propranolol ER 80 mg capsule,24 hr,extended release RxNorm: 227976 1 Capsule(s) PO QD TAKE ONE CAPSULE BY MOUTH DAILY - REPLACES AMLODOPINE 03/11/2017 09/08/2017 Inactive metformin ER 500 mg tablet,extended release 24 hr RxNorm: 86 0975 1 Tablet(s) PO QD 03/11/2017 09/08/2017 Inactive lisinopril 40 mg tablet RxNorm: 202271 1 Tablet(s) PO QD 03/11/2017 0 09/06/2017 Inactive lisinopril 40 mg tablet RxNorm: 043306 1 Tablet(s) PO QD 02/16/2017 1 05/11/2016 Inactive metformin ER 500 mg tablet,extended release 24 hr RxNorm: 86 0975 1 Tablet(s) PO QD Due for labs and follow up before further refills 02/16/2017 017 Inactive propranolol ER 80 mg capsule,24 hr,extended release RxNorm: 858855 Capsule(s) TAKE ONE CAPSULE BY MOUTH DAILY - REPLACES AMLODOPINE 11/19/20162016 Inactive lisinopril 40 mg tablet RxNorm: 797287 1 Tablet(s) PO QD 11/17/2016 1 04/18/2016 Inactive metformin ER 500 mg tablet,extended release 24 hr RxNorm: 86 0975 1 Tablet(s) PO QD 11/17/2016 02/16/2017 Inactive lisinopril 40 mg tablet RxNorm: 526403 1 Tablet(s) PO Q D TAKE ONE TABLET BY MOUTH DAILY 08/19/2016 11/17/2016 Inactive metformin ER 500 mg tablet,extended release 24 hr RxNorm: 86 0975 Tablet(s) TAKE ONE TABLET BY MOUTH DAILY 08/19/2016 11/16/2016 Inactive propranolol ER 80 mg capsule,24 hr,extended release RxNorm: 989046 Capsule(s) TAKE ONE CAPSULE BY MOUTH DAILY - REPLACES AMLODOPINE 08/19/20162016 Inactive Crestor 10 mg tablet RxNorm: 551134 TAKE ONE TABLET BY MOUTH DAILY 06/16/2016 03/10/2017 Inactive lisinopril 40 mg tablet RxNorm: 533206 1 Tablet(s) PO Q D TAKE ONE TABLET BY MOUTH DAILY 05/23/2016 08/18/2016 Inactive metformin ER 500 mg tablet,extended release 24 hr RxNorm: 86 0975 TAKE ONE TABLET BY MOUTH DAILY 05/23/2016 08/19/2016 Inactive propranolol ER 80 mg capsule,24 hr,extended release RxNorm: 692893 TAKE ONE CAPSULE BY MOUTH DAILY - REPLACES AMLODOPINE 05/23/2016 08/19/[address] [place] [facility] Crestor 10 mg tablet RxNorm: 322758 TAKE ONE TABLET BY MOUTH DAILY 03/31/2016 06/15/2016 Inactive metformin ER 500 mg tablet,extended release 24 hr RxNorm: 86 0975 TAKE ONE TABLET BY MOUTH DAILY 02/19/2016 05/22/2016 Inactive propranolol ER 80 mg capsule,24 hr,extended release RxNorm: 136809 TAKE ONE CAPSULE BY MOUTH DAILY - REPLACES AMLODOPINE 11/23/2015 05/20/2016 [place] [facility] metformin ER 500 mg tablet,extended release 24 hr RxNorm: 86 0975 TAKE ONE TABLET BY MOUTH DAILY 11/08/2015 02/05/2016 Inactive Bactroban Nasal 2 % ointment RxNorm: 983018 Apply topic ally to affected area twice daily 09/10/2015 03/09/2016 Inactive Vibramycin 100 mg capsule RxNorm: 961708 1 Capsule(s) PO BID 201509/23/2015 Inactive lisinopril 40 mg tablet RxNorm: 285530 1 Tablet(s) PO Q D TAKE ONE TABLET BY MOUTH DAILY 08/27/2015 02/22/2016 Inactive metformin ER 500 mg tablet,extended release 24 hr RxNorm: 86 0975 TAKE ONE TABLET BY MOUTH DAILY 08/06/2015 11/03/2015 Inactive Levsin/SL 0.125 mg sublingual tablet RxNorm: 3950339 1 T ablet(s) SL Q4H as needed for stomach cramps 06/29/2015 07/03/2015 Inactive lisinopril 40 mg tablet RxNorm: 054095 Tablet(s) TAKE ONE TABLE T BY MOUTH DAILY 06/07/2015 08/26/2015 Inactive propranolol ER 80 mg capsule,24 hr,extended release RxNorm: 298985 TAKE ONE CAPSULE BY MOUTH DAILY - REPLACES AMLODOPINE 05/30/2015 11/22/2015 [place] [facility] metformin ER 500 mg tablet,extended release 24 hr RxNorm: 86 0975 1 Tablet(s) PO QD 05/10/2015 08/05/2015 Inactive Crestor 10 mg tablet RxNorm: 090839 TAKE ONE TABLET BY MOUTH DAILY 04/18/2015 10/14/2015 Inactive metformin ER 500 mg tablet,extended release 24 hr RxNorm: 86 0975 TAKE ONE TABLET BY MOUTH DAILY 02/07/2015 05/10/2015 Inactive sildenafil 20 mg tablet RxNorm: 530119 1 Tablet(s) PO QD 01/17/2015 1 04/17/2014 Inactive propranolol ER 80 mg capsule,24 hr,extended release RxNorm: 407782 1 Capsule(s) PO QD replaces amlodopine 11/28/2014 05/26/2015 Inactive [NICOLAS FOR UNINSURED PATIENTS -- BIN:513314, PCN: [id number], Group: [id number], ID# [id number], Process claim through [employer], for questions: . THIS IS NOT INSURANCE.] lisinopril 40 mg tablet RxNorm: 696057 TAKE ONE TABLET BY MOUTH DAILY 11/16/2014 06/07/2015 Inactive lisinopril 40 mg tablet RxNorm: 216776 1 Tablet(s) PO QD 08/21/2014 0 11/15/2014 Inactive [AttnRPh: Saving apply/adjudicate RxGRP: [id number] RxBIN:[id number] RxPCN: ID#:[id number]] lisinopril 40 mg tablet RxNorm: 840515 1 Tablet(s) PO Q D NEEDS SEEN FOR APPOINTMENT 07/14/2014 08/21/2014 Inactive [AttnRPh: Saving apply/adjudicate RxGRP:SG20 RxBIN:[id number] RxPCN: ID#:[id number]] Crestor 10 mg tablet RxNorm: 879683 TAKE ONE TABLET BY MOUTH EV EILEEN DAY 07/06/2014 01/01/2015 Inactive metformin ER 500 mg tablet,extended release 24 hr RxNorm: 86 0975 1 Tablet(s) QD TAKE ONE TABLET BY MOUTH ONCE A DAY 06/09/2014 12/05/2014 Inactive propranolol ER 80 mg capsule,24 hr,extended release RxNorm: 565443 1 Capsule(s) PO QD replaces amlodopine 06/05/2014 11/28/2014 Inactive [[employer] FOR UNINSURED PATIENTS -- BIN:124869, PCN: [id number], Group: [id number], ID# [id number], Process claim through [employer], for questions: . THIS IS NOT INSURANCE.] propranolol ER 80 mg capsule,24 hr,extended release RxNorm: 224876 1 Capsule(s) PO QD replaces amlodopine 03/07/2014 06/05/2014 Inactive [SAVIN GS FOR UNINSURED PATIENTS -- BIN:896778, PCN: [id number], Group: [id number], ID# [id number], Process claim through [employer], for questions: . THIS IS NOT INSURANCE.] metformin ER 500 mg tablet,extended release 24 hr RxNorm: 86 0975 TAKE ONE TABLET BY MOUTH ONCE A DAY 12/15/2013 06/09/2014 Inactive propranolol ER 80 mg capsule,24 hr,extended release RxNorm: 015276 1 Capsule(s) PO QD replaces amlodopine 12/09/2013 03/07/2014 Inactive [NICOLAS FOR UNINSURED PATIENTS -- BIN:549781, PCN: [id number], Group: [id number], ID# [id number], Process claim through [employer], for questions: . THIS IS NOT INSURANCE.] acyclovir 800 mg tablet RxNorm: 403311 1 Tablet(s) PO QID 09/23/2013 09/29/2013 Inactive gabapentin 300 mg capsule RxNorm: 982114 1 Capsule(s) PO BID 201310/07/2013 Inactive metformin ER 500 mg tablet,extended release 24 hr RxNorm: 86 0975 1 Tablet(s) PO QD 09/19/2013 12/14/2013 Inactive propranolol ER 80 mg capsule,24 hr,extended release RxNorm: 641772 1 Capsule(s) PO QD replaces amlodopine 09/15/2013 12/09/2013 Inactive metformin ER 500 mg 24 hr tablet,extended release RxNorm: 86 0975 1 Tablet(s) PO QD 09/15/2013 09/18/2013 Inactive lisinopril 40 mg tablet RxNorm: 808031 1 Tablet(s) PO QD 07/19/2013 0 07/14/2014 Inactive Crestor 10 mg tablet RxNorm: 730201 Tablet(s) PO TAKE O NE TABLET BY MOUTH EVERY DAY 07/12/2013 07/05/2014 Inactive propranolol ER 80 mg capsule,24 hr,extended release RxNorm: 468847 1 Capsule(s) PO QD replaces amlodopine 06/20/2013 09/15/2013 Inactive triamcinolone acetonide 0.1 % topical ointment RxNorm: 27123 36 Application TOP BID 06/20/2013 06/26/2013 Inactive Crestor 10 mg tablet RxNorm: 627376 1 Tablet(s) PO QD 04/18/201310/2013 Inactive Viagra 100 mg tablet RxNorm: 618120 1 Tablet(s) PO as directed 01/0508/18/2018 Inactive TAKE ONE TABLET BY MOUTH DIRECTED Crestor 10 mg tablet RxNorm: 168057 1 Tablet(s) PO QD 01/17/201304/06 Inactive metformin ER 500 mg tablet,extended release 24 hr RxNorm: 86 0975 1 Tablet(s) PO QD TAKE ONE TABLET BY MOUTH EVERY DAY 12/23/2012 09/15/2013 Inactive triamcinolone acetonide 0.1 % topical ointment RxNorm: 88313 36 Application TOP BID 08/27/2012 09/02/2012 Inactive ketoconazole 2 % topical cream RxNorm: 304484 1 Application TOP QAM 08/27/2012 09/02/2012 Inactive lisinopril 40 mg tablet RxNorm: 806386 1 Tablet(s) PO QD 07/21/2012 0 07/15/2013 Inactive Crestor 10 mg tablet RxNorm: 107121 1 Tablet(s) PO QD 07/21/201210/04 Inactive amlodipine 10 mg tablet RxNorm: 636832 1 Tablet(s) PO QHS 07/21/2012 07/15/2013 Inactive metformin ER 500 mg tablet,extended release 24 hr RxNorm: 86 0977 Tablet(s) PO TAKE ONE TABLET BY MOUTH EVERY DAY 03/31/2012 12/22/2012 Inactive lisinopril 40 mg tablet RxNorm: 065475 1 Tablet(s) PO QD 07/29/2011 0 07/20/2012 Inactive amlodipine 10 mg tablet RxNorm: 500437 1 Tablet(s) PO QHS 07/29/2011 07/20/2012 Inactive amlodipine 10 mg Tab RxNorm: 041508 1 Tablet(s) PO QHS 07/29/2011 Inactive Viagra 100 mg tablet RxNorm: 592089 1 Tablet(s) PO as directed 07/0601/24/2013 Inactive TAKE ONE TABLET BY MOUTH DIRECTED Crestor 10 mg tablet RxNorm: 590064 1 Tablet(s) PO QD 07/29/201107/05 Inactive Norvasc 5 mg Tab RxNorm: 751679 1 Tablet(s) PO QD 07/16/2011 07/28/19 12 Inactive Norvasc 5 mg Tab RxNorm: 546632 1 Tablet(s) PO QD 06/26/2011 07/15/19 12 Inactive lisinopril 40 mg Tab RxNorm: 042612 1 Tablet(s) PO QD 05/13/201107/06 Inactive metformin ER 500 mg tablet,extended release 24 hr RxNorm: 86 0977 1 Tablet(s) PO QD 03/18/2011 07/28/2011 Inactive Crestor 10 mg Tab RxNorm: 268803 1 Tablet(s) PO QHS 01/27/20112011 Inactive metformin ER 500 mg 24 hr Tab RxNorm: 795358 1 Tablet(s) PO QD 11/0403/17/2011 Inactive Viagra 100 mg Tab RxNorm: 781194 Tablet(s) PO TAKE ON E TABLET BY MOUTH DIRECTED 08/26/2010 07/28/2011 Inactive metformin ER 500 mg 24 hr Tab RxNorm: 643103 1 Tablet(s) PO QD 07/0611/18/2010 Inactive Crestor 10 mg Tab RxNorm: 294872 1 Tablet(s) PO QHS 07/30/20102010 Inactive Crestor 10 mg Tab RxNorm: 465356 1 Tablet(s) PO QHS 05/20/20102010 Inactive Wellbutrin SR 150 mg Tab RxNorm: 612578 1 Tablet(s) PO QAM 04/24/19 11 07/22/2010 Inactive Multivitamin And Mineral tablet RxNorm: 1 Tablet(s) PO QD No Start Date Active FreeStyle Lite Strips RxNorm: 1 Unit Dose Miscel laneous AC & HS check blood sugar AC and HS No Start Date Active Co Q-10 200 mg capsule RxNorm: 164557 1 Capsule(s) PO QD No Start Date Active lancets RxNorm: 1 Milliliter(s) Miscellaneous AC & HS No Start Robert e Active Vitamin D3 4,000 unit capsule RxNorm: 4553896 1 Capsule(s) PO QD No Start Date 07/08/2016 Inactive Fish Oil 360 mg-1,200 mg capsule RxNorm: 796107 2 Capsule(s) PO QD No Start Date 01/30/2019 Inactive hydrocodone 5 mg-acetaminophen 325 mg tablet RxNorm: 474715 1 Tablet(s) PO Q4H as needed for severe pain No Start Date 12/30/2015 Inactive Xanax 0.25 mg tablet RxNorm: 073401 1/2 Tablet(s) PO PRN for se andrea stress No Start Date 07/08/2016 Inactive lisinopril 40 mg Tab RxNorm: 497241 1 Tablet(s) PO QD No Start Date 0 05/12/2011 Inactive Fish Oil 1,000 mg capsule RxNorm: 1 Capsule(s) PO QD No Start Date 09/18/2014 Inactive naproxen 500 mg Tab RxNorm: 281139 1 Tablet(s) PO BID No Start Date 0 07/28/2011 Inactive aspirin 81 mg tablet RxNorm: 255222 1 Tablet(s) PO QD No Start Date 0 05/09/2018 Inactive Crestor 10 mg Tab RxNorm: 110572 1 Tablet(s) PO QD No Start Date 07/06 Inactive Crestor 5 mg tablet RxNorm: 699750 1 Tablet(s) PO QD No Start Date Inactive Fish Oil Oral RxNorm: Oral No Start Date 09/18/2014 Inactive Viagra 100 mg Tab RxNorm: 494340 1 Tablet(s) PO as directed No Star [...] Code Item Item Code Result Date S [facility] Location GLYCOSYLATED HEMOGLOBIN TEST 88603 Hgb A1c 48599-6 6.6 % 0 08/24/2019 Unknown MEAN GLUC 3058175 Calc Mean Gluc 143 mg/dL 08/24/2019 Unkn own COMPREHENSIVE METABOLIC 46021 AST 24 U/L 2019 Unknown COMPREHENSIVE METABOLIC 81599 ALT 32 U/L 2019 Unknown COMPREHENSIVE METABOLIC 17357 BUN 14 mg/dL 2019 Unknown COMPREHENSIVE METABOLIC 82066 ALBUMIN 4.7 g/dL 2019 Unknown COMPREHENSIVE METABOLIC 57753 CHLORIDE 103 mmol/L 08/23 Unknown COMPREHENSIVE METABOLIC 76851 Bili Total 0.5 mg/dL 08/23 Unknown COMPREHENSIVE METABOLIC 10873 ALK PHOS 57 U/L 2019 Unknown COMPREHENSIVE METABOLIC 84485 SODIUM 140 mmol/L 08/23 Unknown COMPREHENSIVE METABOLIC 40090 CREATININE 1.20 mg/dL 08/05 Unknown COMPREHENSIVE METABOLIC 07817 CALCIUM 9.9 mg/dL 2019 Unknown COMPREHENSIVE METABOLIC 62791 POTASSIUM 4.4 mmol/L 08/23 Unknown COMPREHENSIVE METABOLIC 71031 Total Protein 6.9 g/dL Unknown COMPREHENSIVE METABOLIC 58664 Glucose 123 mg/dL 2019 Unknown COMPREHENSIVE METABOLIC 90659 Bicarbonate 25 mmol/L 08/05 Unknown COMPREHENSIVE METABOLIC 30493 AGAP 12 mmol/L 2019 Unknown GFR CALC 2789012 GFR Non Afr Amr 60 mL/min 08/24/2019 Unk nown GFR CALC 6695884 GFR Afr Amr >60 mL/min 08/24/2019 Unknow n GLYCOSYLATED HEMOGLOBIN TEST 78446 Hgb A1c 32892-9 6.7 % 0 05/24/2019 Unknown COMPREHENSIVE METABOLIC 85915 AST 21 U/L 2019 Unknown COMPREHENSIVE METABOLIC 29597 ALT 26 U/L 2019 Unknown COMPREHENSIVE METABOLIC 84566 BUN 14 mg/dL 2019 Unknown COMPREHENSIVE METABOLIC 21499 ALBUMIN 4.4 g/dL 2019 Unknown COMPREHENSIVE METABOLIC 67828 CHLORIDE 102 mmol/L 05/24 Unknown COMPREHENSIVE METABOLIC 63641 Bili Total 0.4 mg/dL 05/24 Unknown COMPREHENSIVE METABOLIC 27166 ALK PHOS 55 U/L 2019 Unknown COMPREHENSIVE METABOLIC 17534 SODIUM 139 mmol/L 05/24 Unknown COMPREHENSIVE METABOLIC 89651 CREATININE 1.28 mg/dL 05/07 Unknown COMPREHENSIVE METABOLIC 80756 CALCIUM 9.7 mg/dL 2019 Unknown COMPREHENSIVE METABOLIC 75352 POTASSIUM 4.7 mmol/L 05/24 Unknown COMPREHENSIVE METABOLIC 45407 Total Protein 6.8 g/dL Unknown COMPREHENSIVE METABOLIC 45067 Glucose 130 mg/dL 2019 Unknown COMPREHENSIVE METABOLIC 79659 Bicarbonate 29 mmol/L 05/07 Unknown COMPREHENSIVE METABOLIC 01694 AGAP 8 mmol/L 2019 Unknown MEAN GLUC 1481279 Calc Mean Gluc 146 mg/dL 05/24/2019 Unkn own GFR CALC 2807947 GFR Non Afr Amr 56 mL/min 05/24/2019 Unk nown GFR CALC 8653425 GFR Afr Amr >60 mL/min 05/24/2019 Unknow n MEAN GLUC [id number] Calc Mean Gluc 140 mg/dL 01/26/2019 Unkn own GLYCOSYLATED HEMOGLOBIN TEST 80635 Hgb A1c 34361-7 6.5 % 1 Unknown COMPREHENSIVE METABOLIC 38462 AST 17 U/L 2018 Unknown COMPREHENSIVE METABOLIC 03999 ALT 19 U/L 2018 Unknown COMPREHENSIVE METABOLIC 49817 BUN 19 mg/dL 2018 Unknown COMPREHENSIVE METABOLIC 24758 ALBUMIN 4.3 g/dL 2018 Unknown COMPREHENSIVE METABOLIC 28452 CHLORIDE 103 mmol/L 01/26 Unknown COMPREHENSIVE METABOLIC 28482 Bili Total 0.6 mg/dL 01/26 Unknown COMPREHENSIVE METABOLIC 10592 ALK PHOS 60 U/L 2018 Unknown COMPREHENSIVE METABOLIC 78221 SODIUM 140 mmol/L 01/26 Unknown COMPREHENSIVE METABOLIC 51788 CREATININE 1.21 mg/dL 01/05 Unknown COMPREHENSIVE METABOLIC 77584 CALCIUM 9.6 mg/dL 2018 Unknown COMPREHENSIVE METABOLIC 40638 POTASSIUM 4.5 mmol/L 01/26 Unknown COMPREHENSIVE METABOLIC 49148 Total Protein 6.7 g/dL Unknown COMPREHENSIVE METABOLIC 91564 Glucose 111 mg/dL 2018 Unknown COMPREHENSIVE METABOLIC 70446 Bicarbonate 28 mmol/L 01/05 Unknown COMPREHENSIVE METABOLIC 18352 AGAP 9 mmol/L 2018 Unknown COMPLETE BLOOD COUNT 8058478 WBC 10.7 10e9/L 019 Unknown COMPLETE BLOOD COUNT 3408786 RBC 4.38 10e12/L 2018 Unknown COMPLETE BLOOD COUNT 7438797 HEMOGLOBIN 13.7 g/dL 01/27/20 19 Unknown COMPLETE BLOOD COUNT 9358054 HEMATOCRIT 42.0 % 01/27/20 19 Unknown COMPLETE BLOOD COUNT 7227142 MCV 95.9 fL 9 Unknown COMPLETE BLOOD COUNT 4626559 MCH 31.3 pg 9 Unknown COMPLETE BLOOD COUNT 7201665 MCHC 32.6 g/dL 9 Unknown COMPLETE BLOOD COUNT 4899255 PLATELET COUNT 232 10e9/L Unknown COMPLETE BLOOD COUNT 8949048 Mean Plt Volume 11.4 fL Unknown COMPLETE BLOOD COUNT 2427250 Neut Auto 68.7 % 9 Unknown COMPLETE BLOOD COUNT 3922451 Lymph Auto 21.2 % 01/27/20 19 Unknown COMPLETE BLOOD COUNT 2021147 Richardson Auto 8.1 % 9 Unknown COMPLETE BLOOD COUNT 9426607 RDW 14.1 % 9 Unknown COMPLETE BLOOD COUNT 8804685 Eos Auto 1.8 % 9 Unknown COMPLETE BLOOD COUNT 1168330 Baso Auto 0.2 % 9 Unknown COMPLETE BLOOD COUNT 6368387 Neutrophil Abs 7.35 10e9/L Unknown COMPLETE BLOOD COUNT 9321723 Lymphocyte Abs 2.27 10e9/L Unknown COMPLETE BLOOD COUNT 5104138 Monocyte Abs 0.87 10e9/L 01/05 Unknown COMPLETE BLOOD COUNT 3590825 Eosinophil Abs 0.19 10e9/L Unknown COMPLETE BLOOD COUNT 0884983 RDW-SD 47.7 fL 9 Unknown COMPLETE BLOOD COUNT 9896647 Basophil Abs 0.02 10e9/L 01/05 Unknown GFR CALC 6162607 GFR Non Afr Amr 59 mL/min 01/26/2019 Unk nown GFR CALC 8450056 GFR Afr Amr >60 mL/min 01/26/2019 Unknow n LIPID GROUP 49398 Cholesterol 215 mg/dL 01/26/2019 Unkno wn LIPID GROUP 82064 Triglyceride 221 mg/dL 01/26/2019 Unkn own LIPID GROUP 76591 HDL CHOLESTEROL 41 mg/dL 01/26/2019 U nknown LIPID GROUP 76222 Chol/HDL Ratio 5.24 ratio 01/26/2019 U nknown LIPID GROUP 43667 NON-HDL Chol 174 mg/dL 01/26/2019 Unkn own LIPID GROUP 03450 LDL Cholesterol 130 mg/dL 01/26/2019 [place] [address] Glucose 104 mg/dL 09/30 [place] [address] CREATININE 1.18 mg/dL [place] [address] BUN 19 mg/dL 09/30 [place] [address] SODIUM 139 mmol/L 09/05 [place] [address] POTASSIUM 4.1 mmol/L 09/05 [place] [address] CHLORIDE 105 mmol/L 09/05 [place] [address] Bicarbonate 26 mmol/[place] [address] AGAP 8 mmol/L 09/30 [place] [address] CALCIUM 9.3 mg/dL 09/30 Unknown GFR CALC 1731439 GFR Non Afr Amr >60 mL/min 09/30/2018 Un known GFR CALC 9801079 GFR Afr Amr >60 mL/min 09/30/2018 Unknow n MICROALBUMIN URINE RANDOM 67278 U Microalbumin <2.0 mg/L 08/19/2018 Unknown MICROALBUMIN URINE RANDOM 58991 U Creatinine 66 mg/dL 0 08/19/2018 Unknown MICROALBUMIN URINE RANDOM 87699 ALB/CR Ratio <3.0 mg/gCR 08/19/2018 Unknown COMPREHENSIVE METABOLIC 21970 AST 21 U/L 2018 Unknown COMPREHENSIVE METABOLIC 51437 ALT 20 U/L 2018 Unknown COMPREHENSIVE METABOLIC 58616 BUN 31 mg/dL 2018 Unknown COMPREHENSIVE METABOLIC 86111 ALBUMIN 4.4 g/dL 2018 Unknown COMPREHENSIVE METABOLIC 88012 CHLORIDE 105 mmol/L 08/16 Unknown COMPREHENSIVE METABOLIC 26932 Bili Total 0.5 mg/dL 08/16 Unknown COMPREHENSIVE METABOLIC 06721 ALK PHOS 40 U/L 2018 Unknown COMPREHENSIVE METABOLIC 23463 SODIUM 140 mmol/L 08/16 Unknown COMPREHENSIVE METABOLIC 10563 CREATININE 1.45 mg/dL 08/04 Unknown COMPREHENSIVE METABOLIC 15263 CALCIUM 9.8 mg/dL 2018 Unknown COMPREHENSIVE METABOLIC 15588 POTASSIUM 5.1 mmol/L 08/16 Unknown COMPREHENSIVE METABOLIC 81645 Total Protein 6.9 g/dL Unknown COMPREHENSIVE METABOLIC 55378 Glucose 110 mg/dL 2018 Unknown COMPREHENSIVE METABOLIC 83100 Bicarbonate 25 mmol/L 08/04 Unknown COMPREHENSIVE METABOLIC 99121 AGAP 10 mmol/L 2018 Unknown GFR CALC 9344353 GFR Non Afr Amr 48 mL/min 08/16/2018 Unk nown GFR CALC 0732710 GFR Afr Amr 58 mL/min 08/16/2018 Unknown GLYCOSYLATED HEMOGLOBIN TEST 15737 Hgb A1c 33171-3 5.9 % 0 08/16/2018 Unknown LIPID GROUP 86960 Cholesterol 226 mg/dL 08/16/2018 Unkno wn LIPID GROUP 03607 Triglyceride 335 mg/dL 08/16/2018 Unkn own LIPID GROUP 68662 HDL CHOLESTEROL 32 mg/dL 08/16/2018 U nknown LIPID GROUP 63464 Chol/HDL Ratio 7.06 ratio 08/16/2018 U nknown LIPID GROUP 26643 NON-HDL Chol 194 mg/dL 08/16/2018 Unkn own LIPID GROUP 90484 LDL Cholesterol 127 mg/dL 08/16/2018 U nknown THYROID STIMULATING HORMONE 68089 TSH 2.475 uIU/mL 08/16/2018 Unknown COMPLETE BLOOD COUNT 8989826 WBC 7.5 10e9/L 08/17/19 19 Unknown COMPLETE BLOOD COUNT [id number] RBC 4.09 10e12/L 2018 Unknown COMPLETE BLOOD COUNT 6669451 HEMOGLOBIN 12.9 g/dL 08/17/19 19 Unknown COMPLETE BLOOD COUNT 2147185 HEMATOCRIT 40.0 % 08/17/19 19 Unknown COMPLETE BLOOD COUNT [id number] MCV 97.8 fL 9 Unknown COMPLETE BLOOD COUNT [id number] MCH 31.5 pg 9 Unknown COMPLETE BLOOD COUNT [id number] MCHC 32.3 g/dL 9 Unknown COMPLETE BLOOD COUNT [id number] PLATELET COUNT 258 10e9/L Unknown COMPLETE BLOOD COUNT 1116140 Mean Plt Volume 11.4 fL Unknown COMPLETE BLOOD COUNT [id number] Neut Auto 62.9 % 9 Unknown COMPLETE BLOOD COUNT [id number] Lymph Auto 27.3 % 08/17/19 19 Unknown COMPLETE BLOOD COUNT [id number] Richardson Auto 8.2 % 9 Unknown COMPLETE BLOOD COUNT [id number] RDW 13.3 % 9 Unknown COMPLETE BLOOD COUNT 3196004 Eos Auto 1.5 % 9 Unknown COMPLETE BLOOD COUNT [id number] Baso Auto 0.1 % 9 Unknown COMPLETE BLOOD COUNT [id number] Neutrophil Abs 4.72 10e9/L Unknown COMPLETE BLOOD COUNT [id number] Lymphocyte Abs 2.05 10e9/L Unknown COMPLETE BLOOD COUNT [id number] Monocyte Abs 0.62 10e9/L 08/04 Unknown COMPLETE BLOOD COUNT [id number] Eosinophil Abs 0.11 10e9/L Unknown COMPLETE BLOOD COUNT [id number] RDW-SD 46.7 fL 9 Unknown COMPLETE BLOOD COUNT [id number] Basophil Abs 0.01 10e9/L 08/04 Unknown MEAN GLUC [id number] Calc Mean Gluc 123 mg/dL 08/16/2018 [facility] own [facility] 73015 Cholesterol 212 mg/dL 05/05/2018 [facility] 75333 Triglyceride 271 mg/dL 05/05/2018 [facility] 28203 HDL CHOLESTEROL 38 mg/dL 05/05/2018 U nknown L[facility] 29173 Chol/HDL Ratio 5.58 ratio 05/05/2018 U nknown L[facility] 75291 NON-HDL Chol 174 mg/dL 05/05/2018 [facility] own [facility] 33986 LDL Cholesterol 120 mg/dL 05/05/2018 U nknown GFR CALC 4354674 GFR Non Afr Amr 49 mL/min 05/05/2018 Unk nown GFR CALC 8241157 GFR Afr Amr 59 mL/min 05/05/2018 Unknown GLYCOSYLATED HEMOGLOBIN TEST 01720 Hgb A1c 55491-8 6.0 % 0 05/05/2018 Unknown MEAN GLUC 6316331 Calc Mean Gluc 126 mg/dL 05/05/2018 Unkn own COMPREHENSIVE METABOLIC 91239 AST 18 U/L 2018 Unknown COMPREHENSIVE METABOLIC 99184 ALT 23 U/L 2018 Unknown COMPREHENSIVE METABOLIC 09705 BUN 30 mg/dL 2018 Unknown COMPREHENSIVE METABOLIC 47404 ALBUMIN 4.3 g/dL 2018 Unknown COMPREHENSIVE METABOLIC 41838 CHLORIDE 106 mmol/L 05/05 Unknown COMPREHENSIVE METABOLIC 10952 Bili Total 0.4 mg/dL 05/05 Unknown COMPREHENSIVE METABOLIC 93605 ALK PHOS 39 U/L 2018 Unknown COMPREHENSIVE METABOLIC 54611 SODIUM 139 mmol/L 05/05 Unknown COMPREHENSIVE METABOLIC 83167 CREATININE 1.44 mg/dL 04/08 Unknown COMPREHENSIVE METABOLIC 79858 CALCIUM 9.6 mg/dL 2018 Unknown COMPREHENSIVE METABOLIC 95321 POTASSIUM 4.7 mmol/L 05/05 Unknown COMPREHENSIVE METABOLIC 72317 Total Protein 6.6 g/dL Unknown COMPREHENSIVE METABOLIC 74841 Glucose 112 mg/dL 2018 Unknown COMPREHENSIVE METABOLIC 43353 Bicarbonate 28 mmol/L 04/08 Unknown COMPREHENSIVE METABOLIC 39612 AGAP 5 mmol/L 2018 Unknown THYROID STIMULATING HORMONE 58099 TSH 3.725 uIU/mL 05/05/2018 Unknown COMPLETE BLOOD COUNT [id number] WBC 8.2 10e9/L 05/05/19 19 Unknown COMPLETE BLOOD COUNT [id number] RBC 4.02 10e12/L 2018 Unknown COMPLETE BLOOD COUNT [id number] HEMOGLOBIN 12.7 g/dL 05/05/19 19 Unknown COMPLETE BLOOD COUNT 9703824 HEMATOCRIT 39.3 % 05/05/19 19 Unknown COMPLETE BLOOD COUNT [id number] MCV 97.8 fL 9 Unknown COMPLETE BLOOD COUNT [id number] MCH 31.6 pg 9 Unknown COMPLETE BLOOD COUNT [id number] MCHC 32.3 g/dL 9 Unknown COMPLETE BLOOD COUNT [id number] PLATELET COUNT 213 10e9/L Unknown COMPLETE BLOOD COUNT 1888116 Mean Plt Volume 11.7 fL Unknown COMPLETE BLOOD COUNT 4138071 Neut Auto 55.7 % 9 Unknown COMPLETE BLOOD COUNT [id number] Lymph Auto 33.2 % 05/05/19 19 Unknown COMPLETE BLOOD COUNT [id number] Richardson Auto 8.5 % 9 Unknown COMPLETE BLOOD COUNT 5535691 RDW 13.9 % 9 Unknown COMPLETE BLOOD COUNT [id number] Eos Auto 2.4 % 9 Unknown COMPLETE BLOOD COUNT 6136913 Baso Auto 0.2 % 9 Unknown COMPLETE BLOOD COUNT [id number] Neutrophil Abs 4.57 10e9/L Unknown COMPLETE BLOOD COUNT [id number] Lymphocyte Abs 2.72 10e9/L Unknown COMPLETE BLOOD COUNT [id number] Monocyte Abs 0.70 10e9/L 04/08 Unknown COMPLETE BLOOD COUNT [id number] Eosinophil Abs 0.20 10e9/L Unknown COMPLETE BLOOD COUNT [id number] RDW-SD 48.8 fL 9 Unknown COMPLETE BLOOD COUNT [id number] Basophil Abs 0.02 10e9/L 04/08 Unknown MICROALBUMIN URINE RANDOM 85598 U Microalbumin 19.3 mg/L 01/19/2018 Unknown MICROALBUMIN URINE RANDOM 86491 U Creatinine 96 mg/dL 1 Unknown MICROALBUMIN URINE RANDOM 43386 ALB/CR Ratio 20.1 mg/gCR 01/19/2018 Unknown LIPID GROUP 74821 Cholesterol 173 mg/dL 01/13/2018 [facility] 51658 Triglyceride 386 mg/dL 01/13/2018 [facility] 00456 HDL CHOLESTEROL 37 mg/dL 01/13/2018 U nknown L[facility] 44668 Chol/HDL Ratio 4.68 ratio 01/13/2018 U nknown [facility] 15383 NON-HDL Chol 136 mg/dL 01/13/2018 [facility] 04490 LDL Cholesterol 59 mg/dL 01/13/2018 U nknown COMPLETE BLOOD COUNT [id number] WBC TNP:Client Request 01/13/2018 Unknown COMPLETE BLOOD COUNT [id number] RBC TNP:Client Request 01/13/2018 Unknown COMPLETE BLOOD COUNT [id number] HEMOGLOBIN TNP:Client Request 01/13/2018 Unknown COMPLETE BLOOD COUNT 2381918 HEMATOCRIT TNP:Client Request 01/13/2018 Unknown COMPLETE BLOOD COUNT [id number] MCV TNP:Client Request 01/13/2018 Unknown COMPLETE BLOOD COUNT 6108201 MCH TNP:Client Request 01/13/2018 Unknown COMPLETE BLOOD COUNT [id number] MCHC TNP:Client Request 01/13/2018 Unknown COMPLETE BLOOD COUNT [id number] PLATELET COUNT TNP:Client Req uest 01/13/2018 Unknown COMPLETE BLOOD COUNT 0075051 Mean Plt Volume TNP:Client Re quest 01/13/2018 Unknown COMPLETE BLOOD COUNT 8093000 Neut Auto TNP:Client Request 01/13/2018 Unknown COMPLETE BLOOD COUNT [id number] Lymph Auto TNP:Client Request 01/13/2018 Unknown COMPLETE BLOOD COUNT [id number] Richardson Auto TNP:Client Request 01/13/2018 Unknown COMPLETE BLOOD COUNT [id number] RDW TNP:Client Request 01/13/2018 Unknown COMPLETE BLOOD COUNT [id number] Eos Auto TNP:Client Request 01/13/2018 Unknown COMPLETE BLOOD COUNT [id number] Baso Auto TNP:Client Request 01/13/2018 Unknown COMPLETE BLOOD COUNT [id number] Neutrophil Abs TNP:Client Req uest 01/13/2018 Unknown COMPLETE BLOOD COUNT [id number] Lymphocyte Abs TNP:Client Req uest 01/13/2018 Unknown COMPLETE BLOOD COUNT 8551937 Monocyte Abs TNP:Client Reque st 01/13/2018 Unknown COMPLETE BLOOD COUNT [id number] Eosinophil Abs TNP:Client Req uest 01/13/2018 Unknown COMPLETE BLOOD COUNT [id number] RDW-SD TNP:Client Request 01/13/2018 Unknown COMPLETE BLOOD COUNT [id number] Basophil Abs TNP:Client Reque st 01/13/2018 Unknown GLYCOSYLATED HEMOGLOBIN TEST 25396 Hgb A1c 18987-0 6.2 % 1 Unknown THYROID STIMULATING HORMONE 83867 TSH 2.764 uIU/mL 01/13/2018 Unknown COMPREHENSIVE METABOLIC 81893 AST 19 U/L 2017 Unknown COMPREHENSIVE METABOLIC 11517 ALT 21 U/L 2017 Unknown COMPREHENSIVE METABOLIC 62745 BUN 16 mg/dL 2017 Unknown COMPREHENSIVE METABOLIC 17227 ALBUMIN 4.2 g/dL 2017 Unknown COMPREHENSIVE METABOLIC 03031 CHLORIDE 105 mmol/L 01/13 Unknown COMPREHENSIVE METABOLIC 68422 Bili Total 0.5 mg/dL 01/13 Unknown COMPREHENSIVE METABOLIC 94976 ALK PHOS 85 U/L 2017 Unknown COMPREHENSIVE METABOLIC 49641 SODIUM 139 mmol/L 01/13 Unknown COMPREHENSIVE METABOLIC 47975 CREATININE 1.07 mg/dL 01/04 Unknown COMPREHENSIVE METABOLIC 05420 CALCIUM 9.2 mg/dL 2017 Unknown COMPREHENSIVE METABOLIC 89707 POTASSIUM 4.4 mmol/L 01/13 Unknown COMPREHENSIVE METABOLIC 37227 Total Protein 7.7 g/dL Unknown COMPREHENSIVE METABOLIC 71021 Glucose 130 mg/dL 2017 Unknown COMPREHENSIVE METABOLIC 71594 Bicarbonate 27 mmol/L 01/04 Unknown COMPREHENSIVE METABOLIC 42735 AGAP 7 mmol/L 2017 Unknown PSA EQUIMOLAR JERSON 62138 PSA Total 1.16 ng/mL 8 Unknown MEAN GLUC 0895113 Calc Mean Gluc 131 mg/dL 01/13/2018 Unkn own GFR CALC 9588583 GFR Non Afr Amr >60 mL/min 01/13/2018 Un known GFR CALC 8607737 GFR Afr Amr >60 mL/min 01/13/2018 Unknow n MEAN GLUC 4016357 Calc Mean Gluc 134 mg/dL 10/06/2017 Unkn own GFR CALC 1496776 GFR Non Afr Amr >60 mL/min 10/06/2017 Un known GFR CALC 8420021 GFR Afr Amr >60 mL/min 10/06/2017 Unknow n GLYCOSYLATED HEMOGLOBIN TEST 52653 Hgb A1c 03118-1 6.3 % 0 10/06/2017 Unknown VITAMIN B 12 30796 VITAMIN B12 1202 pg/mL 10/06/2017 Unk nown COMPLETE BLOOD COUNT 7253829 WBC 7.4 10e9/L 10/07/19 18 Unknown COMPLETE BLOOD COUNT [id number] RBC 4.24 10e12/L 2017 Unknown COMPLETE BLOOD COUNT 8156362 HEMOGLOBIN 13.5 g/dL 10/07/19 18 Unknown COMPLETE BLOOD COUNT 6833063 HEMATOCRIT 41.6 % 10/07/19 18 Unknown COMPLETE BLOOD COUNT 4419336 MCV 98.1 fL 8 Unknown COMPLETE BLOOD COUNT 6458910 MCH 31.8 pg 8 Unknown COMPLETE BLOOD COUNT 9640219 MCHC 32.5 g/dL 8 Unknown COMPLETE BLOOD COUNT 3867551 PLATELET COUNT 223 10e9/L 06/2017 Unknown COMPLETE BLOOD COUNT 0796998 Mean Plt Volume 11.9 fL 06/2017 Unknown COMPLETE BLOOD COUNT 0432685 Neut Auto 58.0 % 8 Unknown COMPLETE BLOOD COUNT 8194561 Lymph Auto 29.7 % 10/07/19 18 Unknown COMPLETE BLOOD COUNT 9991853 Richardson Auto 8.3 % 8 Unknown COMPLETE BLOOD COUNT 6459269 RDW 14.0 % 8 Unknown COMPLETE BLOOD COUNT 8364600 Eos Auto 3.7 % 8 Unknown COMPLETE BLOOD COUNT 3552101 Baso Auto 0.3 % 8 Unknown COMPLETE BLOOD COUNT [id number] Neutrophil Abs 4.29 10e9/L Unknown COMPLETE BLOOD COUNT 6185747 Lymphocyte Abs 2.20 10e9/L Unknown COMPLETE BLOOD COUNT [id number] Monocyte Abs 0.61 10e9/L 06/2017 Unknown COMPLETE BLOOD COUNT 5104526 Eosinophil Abs 0.27 10e9/L Unknown COMPLETE BLOOD COUNT 9046742 RDW-SD 48.6 fL 8 Unknown COMPLETE BLOOD COUNT [id number] Basophil Abs 0.02 10e9/L 06/2017 Unknown LIPID GROUP 04327 Cholesterol 216 mg/dL 10/06/2017 [facility] 52433 Triglyceride 335 mg/dL 10/06/2017 [facility] own [facility] 13249 HDL CHOLESTEROL 33 mg/dL 10/06/2017 U nknown LIP[facility] GROUP 35162 Chol/HDL Ratio 6.55 ratio 10/06/2017 [facility]knon [facility] 63654 NON-HDL Chol 183 mg/dL 10/06/2017 Unkn own [facility] 54417 LDL Cholesterol 116 mg/dL 10/06/2017 U nknown COMPREHENSIVE METABOLIC 55135 AST 15 U/L 2017 Unknown COMPREHENSIVE METABOLIC 20232 ALT 15 U/L 2017 Unknown COMPREHENSIVE METABOLIC 42107 BUN 21 mg/dL 2017 Unknown COMPREHENSIVE METABOLIC 16537 ALBUMIN 4.1 g/dL 2017 Unknown COMPREHENSIVE METABOLIC 91124 CHLORIDE 107 mmol/L 10/06 Unknown COMPREHENSIVE METABOLIC 83131 Bili Total 0.6 mg/dL 10/06 Unknown COMPREHENSIVE METABOLIC 16418 ALK PHOS 68 U/L 2017 Unknown COMPREHENSIVE METABOLIC 68871 SODIUM 140 mmol/L 10/06 Unknown COMPREHENSIVE METABOLIC 76458 CREATININE 1.12 mg/dL 06/2017 Unknown COMPREHENSIVE METABOLIC 73733 CALCIUM 9.7 mg/dL 2017 Unknown COMPREHENSIVE METABOLIC 31235 POTASSIUM 4.6 mmol/L 10/06 Unknown COMPREHENSIVE METABOLIC 74326 Total Protein 6.6 g/dL Unknown COMPREHENSIVE METABOLIC 90448 Glucose 114 mg/dL 2017 Unknown COMPREHENSIVE METABOLIC 31895 Bicarbonate 26 mmol/L 06/2017 Unknown COMPREHENSIVE METABOLIC 26186 AGAP 7 mmol/L 2017 Unknown GLYCOSYLATED HEMOGLOBIN TEST 97742 Hgb A1c 88606-3 6.1 % 1 05/05/2016 Unknown GFR CALC 7133459 GFR Non Afr Amr >60 mL/min 03/05/2017 Un known GFR CALC 8313036 GFR Afr Amr >60 mL/min 03/05/2017 Unknow n MEAN GLUC 1002428 Calc Mean Gluc 128 mg/dL 03/05/2017 Unkn own COMPREHENSIVE METABOLIC 27197 AST 18 U/L 2016 Unknown COMPREHENSIVE METABOLIC 50251 ALT 20 U/L 2016 Unknown COMPREHENSIVE METABOLIC 82421 BUN 15 mg/dL 2016 Unknown COMPREHENSIVE METABOLIC 84577 ALBUMIN 4.3 g/dL 2016 Unknown COMPREHENSIVE METABOLIC 14594 CHLORIDE 105 mmol/L 03/05 Unknown COMPREHENSIVE METABOLIC 59389 Bili Total 0.5 mg/dL 03/05 Unknown COMPREHENSIVE METABOLIC 18758 ALK PHOS 57 U/L 2016 Unknown COMPREHENSIVE METABOLIC 07158 SODIUM 141 mmol/L 03/05 Unknown COMPREHENSIVE METABOLIC 08205 CREATININE 1.07 mg/dL 02/06 Unknown COMPREHENSIVE METABOLIC 97227 CALCIUM 9.3 mg/dL 2016 Unknown COMPREHENSIVE METABOLIC 75715 POTASSIUM 4.8 mmol/L 03/05 Unknown COMPREHENSIVE METABOLIC 82024 Total Protein 6.2 g/dL Unknown COMPREHENSIVE METABOLIC 59388 Glucose 118 mg/dL 2016 Unknown COMPREHENSIVE METABOLIC 88204 Bicarbonate 29 mmol/L 02/06 Unknown COMPREHENSIVE METABOLIC 95906 AGAP 7 mmol/L 2016 Unknown FREE T4 50527 T4 Free 1.38 ng/dL 03/05/2017 Unknown COMPLETE BLOOD COUNT [id number] WBC 8.4 10e9/L 03/05/20 17 Unknown COMPLETE BLOOD COUNT [id number] RBC 4.11 10e12/L 2016 Unknown COMPLETE BLOOD COUNT 1596929 HEMOGLOBIN 12.8 g/dL 03/05/20 17 Unknown COMPLETE BLOOD COUNT 0175338 HEMATOCRIT 40.1 % 03/05/20 17 Unknown COMPLETE BLOOD COUNT 1250996 MCV 97.6 fL 7 Unknown COMPLETE BLOOD COUNT [id number] MCH 31.1 pg 7 Unknown COMPLETE BLOOD COUNT 1637700 MCHC 31.9 g/dL 7 Unknown COMPLETE BLOOD COUNT 6476758 PLATELET COUNT 184 10e9/L Unknown COMPLETE BLOOD COUNT 7846021 Mean Plt Volume 11.3 fL Unknown COMPLETE BLOOD COUNT 2546374 Neut Auto 62.5 % 7 Unknown COMPLETE BLOOD COUNT 3759244 Lymph Auto 26.4 % 03/05/20 17 Unknown COMPLETE BLOOD COUNT 5282002 Richardson Auto 7.9 % 7 Unknown COMPLETE BLOOD COUNT 6718293 RDW 13.5 % 7 Unknown COMPLETE BLOOD COUNT 1885378 Eos Auto 3.0 % 7 Unknown COMPLETE BLOOD COUNT 0499611 Baso Auto 0.2 % 7 Unknown COMPLETE BLOOD COUNT 8474544 Neutrophil Abs 5.25 10e9/L Unknown COMPLETE BLOOD COUNT [id number] Lymphocyte Abs 2.22 10e9/L Unknown COMPLETE BLOOD COUNT [id number] Monocyte Abs 0.66 10e9/L 02/06 Unknown COMPLETE BLOOD COUNT 1966890 Eosinophil Abs 0.25 10e9/L Unknown COMPLETE BLOOD COUNT 5183005 RDW-SD 46.7 fL 7 Unknown COMPLETE BLOOD COUNT 8794216 Basophil Abs 0.02 10e9/L 02/06 Unknown THYROID STIMULATING HORMONE 78664 TSH 2.330 uIU/mL 03/05/2017 Unknown LIPID GROUP 01354 Cholesterol 135 mg/dL 03/05/2017 [facility] w[facility] 21612 Triglyceride 297 mg/dL 03/05/2017 Unkn own LIP[facility] GROUP 99670 HDL CHOLESTEROL 34 mg/dL 03/05/2017 U nknown LIPID GROUP 37906 Chol/HDL Ratio 3.97 ratio 03/05/2017 U nknown LIPID GROUP 88741 NON-HDL Chol 101 mg/dL 03/05/2017 Unkn own [facility] 72503 LDL Cholesterol 42 mg/dL 03/05/2017 U nknown GLYCOSYLATED HEMOGLOBIN TEST 80141 Hgb A1c 12705-5 6.5 % 1 05/07/2015 Unknown GFR CALC 9204836 GFR Non Afr Amr 55 mL/min 03/06/2016 Unk nown GFR CALC 7643303 GFR Afr Amr >60 mL/min 03/06/2016 Unknow n COMPLETE BLOOD COUNT 6714792 WBC 8.5 10e9/L 03/06/20 16 Unknown COMPLETE BLOOD COUNT 5235636 RBC 4.32 10e12/L 2015 Unknown COMPLETE BLOOD COUNT 8720995 HEMOGLOBIN 13.5 g/dL 03/06/20 16 Unknown COMPLETE BLOOD COUNT [id number] HEMATOCRIT 41.3 % 03/06/20 16 Unknown COMPLETE BLOOD COUNT 3077829 MCV 95.6 fL 6 Unknown COMPLETE BLOOD COUNT 9602036 MCH 31.3 pg 6 Unknown COMPLETE BLOOD COUNT 2656894 MCHC 32.7 g/dL 6 Unknown COMPLETE BLOOD COUNT 9138758 PLATELET COUNT 191 10e9/L 04/2015 Unknown COMPLETE BLOOD COUNT 3414377 Mean Plt Volume 11.7 fL 04/2015 Unknown COMPLETE BLOOD COUNT 3414465 Neut Auto 64.2 % 6 Unknown COMPLETE BLOOD COUNT 2515733 Lymph Auto 25.9 % 03/06/20 16 Unknown COMPLETE BLOOD COUNT 4415030 Richardson Auto 7.8 % 6 Unknown COMPLETE BLOOD COUNT 2800401 RDW 13.4 % 6 Unknown COMPLETE BLOOD COUNT 5343635 Eos Auto 2.0 % 6 Unknown COMPLETE BLOOD COUNT 6793713 Baso Auto 0.1 % 6 Unknown COMPLETE BLOOD COUNT 8320429 Neutrophil Abs 5.46 10e9/L Unknown COMPLETE BLOOD COUNT [id number] Lymphocyte Abs 2.20 10e9/L Unknown COMPLETE BLOOD COUNT [id number] Monocyte Abs 0.66 10e9/L 04/2015 Unknown COMPLETE BLOOD COUNT 9594387 Eosinophil Abs 0.17 10e9/L Unknown COMPLETE BLOOD COUNT 8879446 RDW-SD 45.0 fL 6 Unknown COMPLETE BLOOD COUNT 8438851 Basophil Abs 0.01 10e9/L 04/2015 Unknown FREE T4 19280 T4 Free 1.34 ng/dL 03/06/2016 Unknown MEAN GLUC 8970409 Calc Mean Gluc 140 mg/dL 03/06/2016 Unkn own COMPREHENSIVE METABOLIC 06189 AST 15 U/L 2015 Unknown COMPREHENSIVE METABOLIC 45091 ALT 18 U/L 2015 Unknown COMPREHENSIVE METABOLIC 78198 BUN 21 mg/dL 2015 Unknown COMPREHENSIVE METABOLIC 60730 ALBUMIN 4.3 g/dL 2015 Unknown COMPREHENSIVE METABOLIC 37066 CHLORIDE 103 mmol/L 03/06 Unknown COMPREHENSIVE METABOLIC 55351 Bili Total 0.4 mg/dL 03/06 Unknown COMPREHENSIVE METABOLIC 89351 ALK PHOS 68 U/L 2015 Unknown COMPREHENSIVE METABOLIC 66813 SODIUM 140 mmol/L 03/06 Unknown COMPREHENSIVE METABOLIC 13923 CREATININE 1.31 mg/dL 04/2015 Unknown COMPREHENSIVE METABOLIC 01026 CALCIUM 9.4 mg/dL 2015 Unknown COMPREHENSIVE METABOLIC 83539 POTASSIUM 4.8 mmol/L 03/06 Unknown COMPREHENSIVE METABOLIC 92480 Total Protein 6.6 g/dL Unknown COMPREHENSIVE METABOLIC 93879 Glucose 142 mg/dL 2015 Unknown COMPREHENSIVE METABOLIC 78030 Bicarbonate 29 mmol/L 04/2015 Unknown COMPREHENSIVE METABOLIC 35473 AGAP 8 mmol/L 2015 Unknown THYROID STIMULATING HORMONE 31606 TSH 2.288 uIU/mL 03/06/2016 Unknown LIPID GROUP 13032 Cholesterol 154 mg/dL 03/06/2016 [facility]kno wn LIP[facility] GROUP 74554 Triglyceride 266 mg/dL 03/06/2016 Unkn own LIP[facility] GROUP 71374 HDL CHOLESTEROL 38 mg/dL 03/06/2016 U nknown LIPID GROUP 93606 Chol/HDL Ratio 4.05 ratio 03/06/2016 U nknown LIPID GROUP 18455 NON-HDL Chol 116 mg/dL 03/06/2016 Unkn own LIPID GROUP 81833 LDL Cholesterol 63 mg/dL 03/06/2016 U nknown MEAN GLUC 8673152 Mean Glucose 128 mg/dL 08/31/2015 Unknow n COMPLETE BLOOD COUNT [id number] WBC 8.4 10e9/L 08/31/19 16 Unknown COMPLETE BLOOD COUNT 1433383 RBC 4.12 10e12/L 2015 Unknown COMPLETE BLOOD COUNT 6949872 HEMOGLOBIN 12.8 g/dL 08/31/19 16 Unknown COMPLETE BLOOD COUNT 5317152 HEMATOCRIT 39.6 % 08/31/19 16 Unknown COMPLETE BLOOD COUNT 5956180 MCV 96.1 fL 6 Unknown COMPLETE BLOOD COUNT 9270114 MCH 31.1 pg 6 Unknown COMPLETE BLOOD COUNT 2579640 MCHC 32.3 g/dL 6 Unknown COMPLETE BLOOD COUNT 8231491 PLATELET COUNT 184 10e9/L Unknown COMPLETE BLOOD COUNT 5820873 Mean Plt Volume 12.0 fL Unknown COMPLETE BLOOD COUNT 1691732 Neut Auto 59.8 % 6 Unknown COMPLETE BLOOD COUNT 0707004 Lymph Auto 27.9 % 08/31/19 16 Unknown COMPLETE BLOOD COUNT 5400680 Richardson Auto 9.1 % 6 Unknown COMPLETE BLOOD COUNT 8830323 RDW 13.6 % 6 Unknown COMPLETE BLOOD COUNT 0852522 Eos Auto 3.1 % 6 Unknown COMPLETE BLOOD COUNT 1376867 Baso Auto 0.1 % 6 Unknown COMPLETE BLOOD COUNT 6271156 Neutrophil Abs 5.02 10e9/L Unknown COMPLETE BLOOD COUNT [id number] Lymphoctye Abs 2.34 10e9/L Unknown COMPLETE BLOOD COUNT 5456581 Monocyte Abs 0.76 10e9/L 08/05 Unknown COMPLETE BLOOD COUNT 9296112 Eosinophil Abs 0.26 10e9/L Unknown COMPLETE BLOOD COUNT 2075702 RDW-SD 46.3 fL 6 Unknown COMPLETE BLOOD COUNT 0780786 Basophil Abs 0.01 10e9/L 08/05 Unknown GLYCOSYLATED HEMOGLOBIN TEST 41205 Hgb A1c 60383-5 6.1 % 0 08/31/2015 Unknown GFR CALC 4327862 GFR Non Afr Amr >60 mL/min 08/31/2015 Un known GFR CALC 6103050 GFR Afr Amr >60 mL/min 08/31/2015 Unknow n FREE T4 81723 T4 Free 1.21 ng/dL 08/31/2015 Unknown THYROID STIMULATING HORMONE 61114 TSH 2.988 uIU/mL 08/31/2015 Unknown COMPREHENSIVE METABOLIC 82724 AST 16 U/L 2015 Unknown COMPREHENSIVE METABOLIC 41477 ALT 19 U/L 2015 Unknown COMPREHENSIVE METABOLIC 18712 BUN 17 mg/dL 2015 Unknown COMPREHENSIVE METABOLIC 71693 ALBUMIN 4.3 g/dL 2015 Unknown COMPREHENSIVE METABOLIC 25038 CHLORIDE 107 mmol/L 08/30 Unknown COMPREHENSIVE METABOLIC 45182 Bili Total 0.4 mg/dL 08/30 Unknown COMPREHENSIVE METABOLIC 60952 ALK PHOS 66 U/L 2015 Unknown COMPREHENSIVE METABOLIC 25166 SODIUM 140 mmol/L 08/30 Unknown COMPREHENSIVE METABOLIC 29823 CREATININE 1.07 mg/dL 08/05 Unknown COMPREHENSIVE METABOLIC 37006 CALCIUM 9.5 mg/dL 2015 Unknown COMPREHENSIVE METABOLIC 55438 POTASSIUM 4.5 mmol/L 08/30 Unknown COMPREHENSIVE METABOLIC 59194 Total Protein 6.7 g/dL Unknown COMPREHENSIVE METABOLIC 02935 Glucose 122 mg/dL 2015 Unknown COMPREHENSIVE METABOLIC 75897 Bicarbonate 26 mmol/L 08/05 Unknown COMPREHENSIVE METABOLIC 77721 AGAP 7 mmol/L 2015 Unknown LIPID GROUP 04498 Cholesterol 171 mg/dL 08/31/2015 Unkno wn LIPID GROUP 66712 Triglyceride 428 mg/dL 08/31/2015 Unkn own LIPID GROUP 21121 HDL CHOLESTEROL 35 mg/dL 08/31/2015 U nknown LIPID GROUP 92641 Chol/HDL Ratio 4.89 ratio 08/31/2015 U nknown LIPID GROUP 17246 NON-HDL Chol 136 mg/dL 08/31/2015 Unkn own LIPID GROUP 86052 LDL Cholesterol 50 mg/dL 08/31/2015 U nknown PSA EQUIMOLAR JERSON 99236 PSA Total 0.47 ng/mL 6 Unknown GFR CALC 7378124 GFR AA >60 ML/MIN 01/12/2015 Unknown GFR CALC 9609714 GFR NON-AA >60 ML/MIN 01/12/2015 Unknown COMPREHENSIVE METABOLIC 87413 AST 18 U/L 2014 Unknown COMPREHENSIVE METABOLIC 59547 ALT 19 IU/L 2014 Unknown COMPREHENSIVE METABOLIC 70935 BUN 19 MG/DL 2014 Unknown COMPREHENSIVE METABOLIC 30230 ALBUMIN 4.7 GM/DL 2014 Unknown COMPREHENSIVE METABOLIC 98001 CHLORIDE 104 MMOL/L 01/12 Unknown COMPREHENSIVE METABOLIC 54662 BILI TOT 0.8 MG/DL 2014 Unknown COMPREHENSIVE METABOLIC 83934 ALK PHOS 58 U/L 2014 Unknown COMPREHENSIVE METABOLIC 81401 SODIUM 139 MMOL/L 01/12 Unknown COMPREHENSIVE METABOLIC 96731 CREATININE 1.09 MG/DL 12/2014 Unknown COMPREHENSIVE METABOLIC 19281 CALCIUM 9.6 MG/DL 2014 Unknown COMPREHENSIVE METABOLIC 13216 POTASSIUM 4.4 MMOL/L 01/12 Unknown COMPREHENSIVE METABOLIC 73778 PROT TOT 6.7 GM/DL 2014 Unknown COMPREHENSIVE METABOLIC 02281 Glucose 109 MG/DL 2014 Unknown COMPREHENSIVE METABOLIC 28945 BICARB 27 MMOL/L 2014 Unknown COMPREHENSIVE METABOLIC 04067 ANION GAP 8 MEQ/L 2014 Unknown LIPID GROUP 29589 HDL TEST 36 MG/DL 01/12/2015 Unknown LIPID GROUP 71358 TRIG 220 MG/DL 01/12/2015 Unknown LIPID GROUP 34843 TEST LDL 58 MG/DL 01/12/2015 Unknown LIPID GROUP 62780 CHOL 138 MG/DL 01/12/2015 Unknown LIPID GROUP 18227 RCHOL/HDL 3.83 RATIO 01/12/2015 Unknow n LIPID GROUP 92753 NON-HDL CH 102 MG/DL 01/12/2015 Unknow n GLYCOSYLATED HEMOGLOBIN TEST 20224 A1C HPLC 07591-1 6.1 % 1 Unknown COMPLETE BLOOD COUNT 6107210 WBC 7.1 10e9/L 01/13/20 15 Unknown COMPLETE BLOOD COUNT 3525883 RBC 4.38 10e12/L 2014 Unknown COMPLETE BLOOD COUNT 9730982 HGB 13.7 g/dL 5 Unknown COMPLETE BLOOD COUNT 9012605 HCT DET 41.3 % 5 Unknown COMPLETE BLOOD COUNT 1820174 MCV 94.3 fL 5 Unknown COMPLETE BLOOD COUNT 4470004 MCH 31.3 pg 5 Unknown COMPLETE BLOOD COUNT 6362466 MCHC 33.2 g/dL 5 Unknown COMPLETE BLOOD COUNT 7416601 PLT 174 10e9/L 01/13/20 15 Unknown COMPLETE BLOOD COUNT 3066189 MPV 11.8 fL 5 Unknown COMPLETE BLOOD COUNT 1297775 SAMIR % 61.3 % 5 Unknown COMPLETE BLOOD COUNT 4443158 LY % 28.3 % 5 Unknown COMPLETE BLOOD COUNT 7354712 MON % 7.6 % 5 Unknown COMPLETE BLOOD COUNT 3669780 EOS % 2.7 % 5 Unknown COMPLETE BLOOD COUNT 4682415 BASO % 0.1 % 5 Unknown COMPLETE BLOOD COUNT 9902065 RDW 13.1 % 5 Unknown COMPLETE BLOOD COUNT 6233155 ABS SAMIR 4.35 10e9/L 015 Unknown COMPLETE BLOOD COUNT 4791347 ABS LYMPH 2.01 10e9/L 015 Unknown COMPLETE BLOOD COUNT 1934701 ABS MONO 0.54 10e9/L 015 Unknown COMPLETE BLOOD COUNT 7507376 ABS EOS 0.19 10e9/L 015 Unknown COMPLETE BLOOD COUNT 0697512 ABS BASO 0.01 10e9/L 015 Unknown COMPLETE BLOOD COUNT 6759135 RDW-SD 43.9 fL 5 Unknown GLYCOSYLATED HEMOGLOBIN TEST 15841 A1C HPLC 50319-3 6.1 % 0 08/15/2014 Unknown COMPLETE BLOOD COUNT [id number] WBC 9.7 10e9/L 08/16/19 15 Unknown COMPLETE BLOOD COUNT [id number] RBC 4.29 10e12/L 2014 Unknown COMPLETE BLOOD COUNT [id number] HGB 13.3 g/dL 5 Unknown COMPLETE BLOOD COUNT [id number] HCT DET 40.5 % 5 Unknown COMPLETE BLOOD COUNT [id number] MCV 94.4 fL 5 Unknown COMPLETE BLOOD COUNT [id number] MCH 31.0 pg 5 Unknown COMPLETE BLOOD COUNT [id number] MCHC 32.8 g/dL 5 Unknown COMPLETE BLOOD COUNT [id number] PLT 227 10e9/L 08/16/19 15 Unknown COMPLETE BLOOD COUNT [id number] MPV 11.0 fL 5 Unknown COMPLETE BLOOD COUNT [id number] SAMIR % 66.4 % 5 Unknown COMPLETE BLOOD COUNT [id number] LY % 23.7 % 5 Unknown COMPLETE BLOOD COUNT [id number] MON % 8.1 % 5 Unknown COMPLETE BLOOD COUNT [id number] EOS % 1.6 % 5 Unknown COMPLETE BLOOD COUNT [id number] BASO % 0.2 % 5 Unknown COMPLETE BLOOD COUNT [id number] RDW 13.4 % 5 Unknown COMPLETE BLOOD COUNT [id number] ABS SAMIR 6.44 10e9/L 015 Unknown COMPLETE BLOOD COUNT [id number] ABS LYMPH 2.30 10e9/L 015 Unknown COMPLETE BLOOD COUNT [id number] ABS MONO 0.79 10e9/L 015 Unknown COMPLETE BLOOD COUNT [id number] ABS EOS 0.16 10e9/L 015 Unknown COMPLETE BLOOD COUNT [id number] ABS BASO 0.02 10e9/L 015 Unknown COMPLETE BLOOD COUNT [id number] RDW-SD 44.7 fL 5 Unknown COMPREHENSIVE METABOLIC 05095 AST 17 U/L 2014 Unknown COMPREHENSIVE METABOLIC 38316 ALT 23 IU/L 2014 Unknown COMPREHENSIVE METABOLIC 52719 BUN 16 MG/DL 2014 Unknown COMPREHENSIVE METABOLIC 55567 ALBUMIN 4.3 GM/DL 2014 Unknown COMPREHENSIVE METABOLIC 16815 CHLORIDE 107 MMOL/L 08/15 Unknown COMPREHENSIVE METABOLIC 17722 BILI TOT 0.4 MG/DL 2014 Unknown COMPREHENSIVE METABOLIC 78131 ALK PHOS 91 U/L 2014 Unknown COMPREHENSIVE METABOLIC 28216 SODIUM 139 MMOL/L 08/15 Unknown COMPREHENSIVE METABOLIC 03505 CREATININE 1.07 MG/DL 08/04 Unknown COMPREHENSIVE METABOLIC 71739 CALCIUM 9.6 MG/DL 2014 Unknown COMPREHENSIVE METABOLIC 05883 POTASSIUM 4.6 MMOL/L 08/15 Unknown COMPREHENSIVE METABOLIC 01157 PROT TOT 6.7 GM/DL 2014 Unknown COMPREHENSIVE METABOLIC 13173 Glucose 111 MG/DL 2014 Unknown COMPREHENSIVE METABOLIC 14752 BICARB 27 MMOL/L 2014 Unknown COMPREHENSIVE METABOLIC 37849 ANION GAP 5 MEQ/L 2014 Unknown GFR CALC [id number] GFR AA >60 ML/MIN 08/15/2014 Unknown GFR CALC [id number] GFR NON-AA >60 ML/MIN 08/15/2014 Unknown THYROID STIMULATING HORMONE 10645 TSH 1.598 uIU/ML 08/15/2014 Unknown LIPID GROUP 31345 HDL TEST 33 MG/DL 08/15/2014 Unknown LIPID GROUP 34461 TRIG 187 MG/DL 08/15/2014 Unknown LIPID GROUP 05516 TEST LDL 58 MG/DL 08/15/2014 Unknown LIPID GROUP 96569 CHOL 128 MG/DL 08/15/2014 Unknown LIPID GROUP 84544 RCHOL/HDL 3.88 RATIO 08/15/2014 Unknow n LIPID GROUP 67206 NON-HDL CH 95 MG/DL 08/15/2014 Unknow n PSA EQUIMOLAR JERSON 64464 PSA EQ 0.70 NG/ML 5 Unknown FREE T4 09714 FREE T4 1.32 NG/DL 08/15/2014 Unknown GFR CALC 7471531 GFR AA >60 ML/MIN 12/14/2013 Unknown GFR CALC 8948499 GFR NON-AA 58.0L ML/MIN 12/14/2013 Unkno wn COMPLETE BLOOD COUNT 9323752 WBC 8.7 10e9/L 12/15/19 14 Unknown COMPLETE BLOOD COUNT 3075584 RBC 4.32 10e12/L 2013 Unknown COMPLETE BLOOD COUNT 8740949 HGB 13.5 g/dL 4 Unknown COMPLETE BLOOD COUNT 8305878 HCT DET 40.6 % 4 Unknown COMPLETE BLOOD COUNT 2674405 MCV 94.0 fL 4 Unknown COMPLETE BLOOD COUNT 6543847 MCH 31.3 pg 4 Unknown COMPLETE BLOOD COUNT 3521142 MCHC 33.3 g/dL 4 Unknown COMPLETE BLOOD COUNT 7998350 PLT 205 10e9/L 12/15/19 14 Unknown COMPLETE BLOOD COUNT 6447357 MPV 11.7 fL 4 Unknown COMPLETE BLOOD COUNT 3814662 SAMIR % 62.5 % 4 Unknown COMPLETE BLOOD COUNT 9546681 LY % 26.9 % 4 Unknown COMPLETE BLOOD COUNT 6450580 MON % 8.8 % 4 Unknown COMPLETE BLOOD COUNT 0261899 EOS % 1.7 % 4 Unknown COMPLETE BLOOD COUNT 1259463 BASO % 0.1 % 4 Unknown COMPLETE BLOOD COUNT 8480307 RDW 13.4 % 4 Unknown COMPLETE BLOOD COUNT 5522247 ABS SAMIR 5.44 10e9/L 014 Unknown COMPLETE BLOOD COUNT 5086021 ABS LYMPH 2.34 10e9/L 014 Unknown COMPLETE BLOOD COUNT 1322539 ABS MONO 0.77 10e9/L 014 Unknown COMPLETE BLOOD COUNT 0826243 ABS EOS 0.15 10e9/L 014 Unknown COMPLETE BLOOD COUNT [id number] ABS BASO 0.01 10e9/L 014 Unknown COMPLETE BLOOD COUNT 2273963 RDW-SD 44.7 fL 4 Unknown COMPREHENSIVE METABOLIC 78538 AST 14 U/L 2013 Unknown COMPREHENSIVE METABOLIC 12965 ALT 12 IU/L 2013 Unknown COMPREHENSIVE METABOLIC 47819 BUN 24 MG/DL 2013 Unknown COMPREHENSIVE METABOLIC 16709 ALBUMIN 4.5 GM/DL 2013 Unknown COMPREHENSIVE METABOLIC 11667 CHLORIDE 104 MMOL/L 12/14 Unknown COMPREHENSIVE METABOLIC 92742 BILI TOT 0.6 MG/DL 2013 Unknown COMPREHENSIVE METABOLIC 05369 ALK PHOS 82 U/L 2013 Unknown COMPREHENSIVE METABOLIC 12226 SODIUM 135 MMOL/L 12/14 Unknown COMPREHENSIVE METABOLIC 70414 CREATININE 1.25 MG/DL 12/05 Unknown COMPREHENSIVE METABOLIC 13644 CALCIUM 9.8 MG/DL 2013 Unknown COMPREHENSIVE METABOLIC 17743 POTASSIUM 4.7 MMOL/L 12/14 Unknown COMPREHENSIVE METABOLIC 16533 PROT TOT 6.7 GM/DL 2013 Unknown COMPREHENSIVE METABOLIC 39117 Glucose 126 MG/DL 2013 Unknown COMPREHENSIVE METABOLIC 11040 BICARB 27 MMOL/L 2013 Unknown COMPREHENSIVE METABOLIC 49337 ANION GAP 4 MEQ/L 2013 Unknown THYROID STIMULATING HORMONE 39280 TSH 3.281 uIU/ML 12/14/2013 Unknown FREE T4 72144 FREE T4 1.28 NG/DL 12/14/2013 Unknown LIPID GROUP 78241 HDL TEST 36 MG/DL 12/14/2013 Unknown LIPID GROUP 57644 TRIG 253 MG/DL 12/14/2013 Unknown LIPID GROUP 12597 TEST LDL 56 MG/DL 12/14/2013 Unknown LIPID GROUP 96554 CHOL 143 MG/DL 12/14/2013 Unknown LIPID GROUP 75480 RCHOL/HDL 3.97 RATIO 12/14/2013 Unknow n LIPID GROUP 92722 NON-HDL CH 107 MG/DL 12/14/2013 Unknow n GLYCOSYLATED HEMOGLOBIN TEST 92957 A1C HPLC 80523-3 6.1 % 0 12/14/2013 Unknown GLYCOSYLATED HEMOGLOBIN TEST 31340 A1C HPLC 36192-3 6.0 % 0 06/08/2013 Unknown LIPID GROUP 98562 HDL TEST 39 MG/DL 06/08/2013 Unknown LIPID GROUP 35493 TRIG 166 MG/DL 06/08/2013 Unknown LIPID GROUP 10903 TEST LDL 86 MG/DL 06/08/2013 Unknown LIPID GROUP 76701 CHOL 158 MG/DL 06/08/2013 Unknown LIPID GROUP 87326 RCHOL/HDL 4.05 RATIO 06/08/2013 Unknow n COMPREHENSIVE METABOLIC 52519 AST 17 U/L 2013 Unknown COMPREHENSIVE METABOLIC 84227 ALT 25 IU/L 2013 Unknown COMPREHENSIVE METABOLIC 14097 BUN 18 MG/DL 2013 Unknown COMPREHENSIVE METABOLIC 15705 ALBUMIN 4.5 GM/DL 2013 Unknown COMPREHENSIVE METABOLIC 17146 CHLORIDE 103 MMOL/L 06/08 Unknown COMPREHENSIVE METABOLIC 66399 BILI TOT 0.4 MG/DL 2013 Unknown COMPREHENSIVE METABOLIC 55401 ALK PHOS 72 U/L 2013 Unknown COMPREHENSIVE METABOLIC 23729 SODIUM 137 MMOL/L 06/08 Unknown COMPREHENSIVE METABOLIC 98838 CREATININE 1.07 MG/DL 08/2013 Unknown COMPREHENSIVE METABOLIC 41951 CALCIUM 9.7 MG/DL 2013 Unknown COMPREHENSIVE METABOLIC 82943 POTASSIUM 4.7 MMOL/L 06/08 Unknown COMPREHENSIVE METABOLIC 30824 PROT TOT 6.6 GM/DL 2013 Unknown COMPREHENSIVE METABOLIC 19368 Glucose 130 MG/DL 2013 Unknown COMPREHENSIVE METABOLIC 43340 BICARB 25 MMOL/L 2013 Unknown COMPREHENSIVE METABOLIC 28994 ANION GAP 9 MEQ/L 2013 Unknown FREE T4 79203 FREE T4 1.29 NG/DL 06/08/2013 Unknown THYROID STIMULATING HORMONE 08528 TSH 2.445 uIU/ML 06/08/2013 Unknown GFR CALC 9690468 GFR AA >60 ML/MIN 06/08/2013 Unknown GFR CALC 4667646 GFR NON-AA >60 ML/MIN 06/08/2013 Unknown COMPLETE BLOOD COUNT 3530430 WBC 8.2 10e9/L 06/09/19 14 Unknown COMPLETE BLOOD COUNT 0167149 RBC 4.63 10e12/L 2013 Unknown COMPLETE BLOOD COUNT 0974146 HGB 14.1 g/dL 4 Unknown COMPLETE BLOOD COUNT 8120333 HCT DET 42.6 % 4 Unknown COMPLETE BLOOD COUNT 5039377 MCV 92.0 fL 4 Unknown COMPLETE BLOOD COUNT 3716055 MCH 30.5 pg 4 Unknown COMPLETE BLOOD COUNT 8929429 MCHC 33.1 g/dL 4 Unknown COMPLETE BLOOD COUNT 7587454 PLT 222 10e9/L 06/09/19 14 Unknown COMPLETE BLOOD COUNT 2778335 MPV 10.8 fL 4 Unknown COMPLETE BLOOD COUNT 5434860 SAMIR % 60.8 % 4 Unknown COMPLETE BLOOD COUNT 2827040 LY % 29.2 % 4 Unknown COMPLETE BLOOD COUNT 9960543 MON % 7.6 % 4 Unknown COMPLETE BLOOD COUNT 8924040 EOS % 2.3 % 4 Unknown COMPLETE BLOOD COUNT 8714444 BASO % 0.1 % 4 Unknown COMPLETE BLOOD COUNT 9573006 RDW 13.7 % 4 Unknown COMPLETE BLOOD COUNT 0329495 ABS SAMIR 4.99 10e9/L 014 Unknown COMPLETE BLOOD COUNT 8187986 ABS LYMPH 2.39 10e9/L 014 Unknown COMPLETE BLOOD COUNT 0049008 ABS MONO 0.62 10e9/L 014 Unknown COMPLETE BLOOD COUNT 1468192 ABS EOS 0.19 10e9/L 014 Unknown COMPLETE BLOOD COUNT 4590475 ABS BASO 0.01 10e9/L 014 Unknown COMPLETE BLOOD COUNT 4421274 RDW-SD 45.2 fL 4 Unknown LIPID GROUP 35325 HDL TEST 40 MG/DL 11/11/2012 Unknown LIPID GROUP 44966 TRIG 153 MG/DL 11/11/2012 Unknown LIPID GROUP 45972 TEST LDL 71 MG/DL 11/11/2012 Unknown LIPID GROUP 37970 CHOL 142 MG/DL 11/11/2012 Unknown LIPID GROUP 31526 RCHOL/HDL 3.55 RATIO 11/11/2012 Unknow n GFR CALC 8033159 GFR AA >60 ML/MIN 11/11/2012 Unknown GFR CALC 3862854 GFR NON-AA 57.0L ML/MIN 11/11/2012 Unkno wn HEMOGLOBIN A1C (GLYCOSYLATED) 1677239 A1C HPLC 59300-1 5.9 % 11/11/2012 Unknown THYROID STIMULATING HORMONE 65945 TSH 2.439 uIU/ML 11/11/2012 Unknown COMPLETE BLOOD COUNT 2739857 WBC 8.5 10e9/L 11/12/19 13 Unknown COMPLETE BLOOD COUNT 5535091 RBC 4.42 10e12/L 2012 Unknown COMPLETE BLOOD COUNT 1383272 HGB 13.7 g/dL 3 Unknown COMPLETE BLOOD COUNT 8482585 HCT DET 41.3 % 3 Unknown COMPLETE BLOOD COUNT 8482247 MCV 93.4 fL 3 Unknown COMPLETE BLOOD COUNT 6395803 MCH 31.0 pg 3 Unknown COMPLETE BLOOD COUNT 6664679 MCHC 33.2 g/dL 3 Unknown COMPLETE BLOOD COUNT 7649520 PLT 220 10e9/L 11/12/19 13 Unknown COMPLETE BLOOD COUNT 4882610 MPV 10.8 fL 3 Unknown COMPLETE BLOOD COUNT 7151447 SAMIR % 60.4 % 3 Unknown COMPLETE BLOOD COUNT 0657718 LY % 28.7 % 3 Unknown COMPLETE BLOOD COUNT 1286855 MON % 8.0 % 3 Unknown COMPLETE BLOOD COUNT 7927200 EOS % 2.8 % 3 Unknown COMPLETE BLOOD COUNT 2899027 BASO % 0.1 % 3 Unknown COMPLETE BLOOD COUNT 2473722 RDW 13.7 % 3 Unknown COMPLETE BLOOD COUNT 3072961 ABS SAMIR 5.13 10e9/L 013 Unknown COMPLETE BLOOD COUNT 7787259 ABS LYMPH 2.44 10e9/L 013 Unknown COMPLETE BLOOD COUNT 2543051 ABS MONO 0.68 10e9/L 013 Unknown COMPLETE BLOOD COUNT 3894849 ABS EOS 0.24 10e9/L 013 Unknown COMPLETE BLOOD COUNT 6333718 ABS BASO 0.01 10e9/L 013 Unknown COMPLETE BLOOD COUNT 8430344 RDW-SD 45.6 fL 3 Unknown COMPREHENSIVE METABOLIC 19430 AST 19 U/L 2012 Unknown COMPREHENSIVE METABOLIC 99396 ALT 28 IU/L 2012 Unknown COMPREHENSIVE METABOLIC 05089 BUN 31 MG/DL 2012 Unknown COMPREHENSIVE METABOLIC 30051 ALBUMIN 4.7 GM/DL 2012 Unknown COMPREHENSIVE METABOLIC 20704 CHLORIDE 106 MMOL/L 11/11 Unknown COMPREHENSIVE METABOLIC 69394 BILI TOT 0.5 MG/DL 2012 Unknown COMPREHENSIVE METABOLIC 08218 ALK PHOS 64 U/L 2012 Unknown COMPREHENSIVE METABOLIC 35082 SODIUM 136 MMOL/L 11/11 Unknown COMPREHENSIVE METABOLIC 62295 CREATININE 1.27 MG/DL 11/2012 Unknown COMPREHENSIVE METABOLIC 42360 CALCIUM 9.4 MG/DL 2012 Unknown COMPREHENSIVE METABOLIC 26265 POTASSIUM 4.9 MMOL/L 11/11 Unknown COMPREHENSIVE METABOLIC 69343 PROT TOT 6.7 GM/DL 2012 Unknown COMPREHENSIVE METABOLIC 49117 Glucose 108 MG/DL 2012 Unknown COMPREHENSIVE METABOLIC 67919 BICARB 21 MMOL/L 2012 Unknown COMPREHENSIVE METABOLIC 45780 ANION GAP 9 MEQ/L 2012 Unknown THYROID STIMULATING HORMONE 68817 TSH 2.572 uIU/ML 05/04/2012 Unknown COMPLETE BLOOD COUNT 5498575 WBC 9.3 10e9/L 05/04/19 13 Unknown COMPLETE BLOOD COUNT 1490945 RBC 4.43 10e12/L 2012 Unknown COMPLETE BLOOD COUNT 7576000 HGB 14.2 g/dL 3 Unknown COMPLETE BLOOD COUNT 2401433 HCT DET 41.1 % 3 Unknown COMPLETE BLOOD COUNT 8908759 MCV 92.8 fL 3 Unknown COMPLETE BLOOD COUNT 0509729 MCH 32.1 pg 3 Unknown COMPLETE BLOOD COUNT 3641858 MCHC 34.5 g/dL 3 Unknown COMPLETE BLOOD COUNT 7060681 PLT 193 10e9/L 05/04/19 13 Unknown COMPLETE BLOOD COUNT 5274809 MPV 10.8 fL 3 Unknown COMPLETE BLOOD COUNT 8307120 SAMIR % 63.0 % 3 Unknown COMPLETE BLOOD COUNT 9076931 LY % 25.3 % 3 Unknown COMPLETE BLOOD COUNT 9822878 MON % 9.1 % 3 Unknown COMPLETE BLOOD COUNT 2583998 EOS % 2.5 % 3 Unknown COMPLETE BLOOD COUNT 4359477 BASO % 0.1 % 3 Unknown COMPLETE BLOOD COUNT 1779098 RDW 12.6 % 3 Unknown COMPLETE BLOOD COUNT 5084318 ABS SAMIR 5.86 10e9/L 013 Unknown COMPLETE BLOOD COUNT 0908234 ABS LYMPH 2.35 10e9/L 013 Unknown COMPLETE BLOOD COUNT 3110785 ABS MONO 0.85 10e9/L 013 Unknown COMPLETE BLOOD COUNT 2886899 ABS EOS 0.23 10e9/L 013 Unknown COMPLETE BLOOD COUNT 5900789 ABS BASO 0.01 10e9/L 013 Unknown COMPLETE BLOOD COUNT 1615149 RDW-SD 41.2 fL 3 Unknown LIPID GROUP 78023 HDL TEST 35 MG/DL 05/04/2012 Unknown LIPID GROUP 91235 TRIG 236 MG/DL 05/04/2012 Unknown LIPID GROUP 26140 TEST LDL 64 MG/DL 05/04/2012 Unknown LIPID GROUP 32578 CHOL 146 MG/DL 05/04/2012 Unknown LIPID GROUP 28566 RCHOL/HDL 4.17 RATIO 05/04/2012 Unknow n COMPREHENSIVE METABOLIC 71826 AST 23 U/L 2012 Unknown COMPREHENSIVE METABOLIC 29304 ALT 33 IU/L 2012 Unknown COMPREHENSIVE METABOLIC 78849 BUN 16 MG/DL 2012 Unknown COMPREHENSIVE METABOLIC 75505 ALBUMIN 4.8 GM/DL 2012 Unknown COMPREHENSIVE METABOLIC 21026 CHLORIDE 104 MMOL/L 05/04 Unknown COMPREHENSIVE METABOLIC 86859 BILI TOT 0.5 MG/DL 2012 Unknown COMPREHENSIVE METABOLIC 89865 ALK PHOS 70 U/L 2012 Unknown COMPREHENSIVE METABOLIC 36528 SODIUM 138 MMOL/L 05/04 Unknown COMPREHENSIVE METABOLIC 03435 CREATININE 1.08 MG/DL 04/07 Unknown COMPREHENSIVE METABOLIC 53860 CALCIUM 9.7 MG/DL 2012 Unknown COMPREHENSIVE METABOLIC 84295 POTASSIUM 4.4 MMOL/L 05/04 Unknown COMPREHENSIVE METABOLIC 40968 PROT TOT 6.8 GM/DL 2012 Unknown COMPREHENSIVE METABOLIC 44574 Glucose 114 MG/DL 2012 Unknown COMPREHENSIVE METABOLIC 43323 BICARB 27 MMOL/L 2012 Unknown COMPREHENSIVE METABOLIC 63137 ANION GAP 7 MEQ/L 2012 Unknown FREE T4 68344 FREE T4 1.11 NG/DL 05/04/2012 Unknown GFR CALC 8629277 GFR AA >60 ML/MIN 05/04/2012 Unknown GFR CALC 9971806 GFR NON-AA >60 ML/MIN 05/04/2012 Unknown GLYCOSYLATED HEMOGLOBIN TEST 94057 A1C HPLC 40585-6 5.8 % 0 10/29/2011 Unknown COMPREHENSIVE METABOLIC 54846 AST 17 U/L 2011 Unknown COMPREHENSIVE METABOLIC 82143 ALT 21 IU/L 2011 Unknown COMPREHENSIVE METABOLIC 11858 BUN 17 MG/DL 2011 Unknown COMPREHENSIVE METABOLIC 66052 ALBUMIN 4.8 GM/DL 2011 Unknown COMPREHENSIVE METABOLIC 93430 CHLORIDE 106 MMOL/L 10/28 Unknown COMPREHENSIVE METABOLIC 88893 BILI TOT 0.6 MG/DL 2011 Unknown COMPREHENSIVE METABOLIC 09965 ALK PHOS 57 U/L 2011 Unknown COMPREHENSIVE METABOLIC 65174 SODIUM 139 MMOL/L 10/28 Unknown COMPREHENSIVE METABOLIC 61876 CREATININE 1.08 MG/DL 10/05 Unknown COMPREHENSIVE METABOLIC 24570 CALCIUM 9.6 MG/DL 2011 Unknown COMPREHENSIVE METABOLIC 54311 POTASSIUM 4.4 MMOL/L 10/28 Unknown COMPREHENSIVE METABOLIC 06698 PROT TOT 6.9 GM/DL 2011 Unknown COMPREHENSIVE METABOLIC 47300 Glucose 104 MG/DL 2011 Unknown COMPREHENSIVE METABOLIC 23110 BICARB 25 MMOL/L 2011 Unknown COMPREHENSIVE METABOLIC 24043 ANION GAP 8 MEQ/L 2011 Unknown LIPID GROUP 55882 HDL TEST 39 MG/DL 10/29/2011 Unknown LIPID GROUP 00105 TRIG 176 MG/DL 10/29/2011 Unknown LIPID GROUP 46616 TEST LDL 70 MG/DL 10/29/2011 Unknown LIPID GROUP 82967 CHOL 144 MG/DL 10/29/2011 Unknown LIPID GROUP 76402 RCHOL/HDL 3.69 RATIO 10/29/2011 Unknow n GFR CALC 2635560 GFR AA >60 ML/MIN 10/29/2011 Unknown GFR CALC 6437879 GFR NON-AA >60 ML/MIN 10/29/2011 Unknown GFR CALC 3760909 GFR AA >60 ML/MIN 03/14/2011 Unknown GFR CALC 7783720 GFR NON-AA >60 ML/MIN 03/14/2011 Unknown GLYCOSYLATED HEMOGLOBIN TEST 04062 A1C HPLC 82925-0 5.7 % 1 05/15/2010 Unknown COMPREHENSIVE METABOLIC 76300 AST 18 U/L 2010 Unknown COMPREHENSIVE METABOLIC 48926 ALT 25 IU/L 2010 Unknown COMPREHENSIVE METABOLIC 92490 BUN 15 MG/DL 2010 Unknown COMPREHENSIVE METABOLIC 25400 ALBUMIN 4.6 GM/DL 2010 Unknown COMPREHENSIVE METABOLIC 64558 CHLORIDE 107 MMOL/L 03/14 Unknown COMPREHENSIVE METABOLIC 13665 BILI TOT 0.6 MG/DL 2010 Unknown COMPREHENSIVE METABOLIC 15595 ALK PHOS 54 U/L 2010 Unknown COMPREHENSIVE METABOLIC 57014 SODIUM 140 MMOL/L 03/14 Unknown COMPREHENSIVE METABOLIC 06025 CREATININE 1.02 MG/DL 12/2010 Unknown COMPREHENSIVE METABOLIC 13687 CALCIUM 9.4 MG/DL 2010 Unknown COMPREHENSIVE METABOLIC 27399 POTASSIUM 4.6 MMOL/L 03/14 Unknown COMPREHENSIVE METABOLIC 36566 PROT TOT 7.0 GM/DL 2010 Unknown COMPREHENSIVE METABOLIC 44801 Glucose 107 MG/DL 2010 Unknown COMPREHENSIVE METABOLIC 47130 BICARB 28 MMOL/L 2010 Unknown COMPREHENSIVE METABOLIC 96056 ANION GAP 5 MEQ/L 2010 Unknown LIPID GROUP 06478 HDL TEST 39 MG/DL 03/14/2011 Unknown LIPID GROUP 87138 TRIG 157 MG/DL 03/14/2011 Unknown LIPID GROUP 40057 TEST LDL 66 MG/DL 03/14/2011 Unknown LIPID GROUP 11382 CHOL 136 MG/DL 03/14/2011 Unknown LIPID GROUP 76021 RCHOL/HDL 3.49 RATIO 03/14/2011 Unknow n GFR CALC 9498179 GFR AA >60 ML/MIN 11/11/2010 Unknown GFR CALC 9458255 GFR NON-AA >60 ML/MIN 11/11/2010 Unknown LIPID GROUP 32092 HDL TEST 39 MG/DL 11/11/2010 Unknown LIPID GROUP 54514 TRIG 212 MG/DL 11/11/2010 Unknown LIPID GROUP 55680 TEST LDL 67 MG/DL 11/11/2010 Unknown LIPID GROUP 79615 CHOL 148 MG/DL 11/11/2010 Unknown LIPID GROUP 41470 RCHOL/HDL 3.79 RATIO 11/11/2010 Unknow n COMPREHENSIVE METABOLIC 43055 AST 17 U/L 2010 Unknown COMPREHENSIVE METABOLIC 18099 ALT 21 IU/L 2010 Unknown COMPREHENSIVE METABOLIC 04974 BUN 16 MG/DL 2010 Unknown COMPREHENSIVE METABOLIC 72482 ALBUMIN 4.6 GM/DL 2010 Unknown COMPREHENSIVE METABOLIC 86004 CHLORIDE 106 MMOL/L 11/11 Unknown COMPREHENSIVE METABOLIC 27862 BILI TOT 0.5 MG/DL 2010 Unknown COMPREHENSIVE METABOLIC 43707 ALK PHOS 61 U/L 2010 Unknown COMPREHENSIVE METABOLIC 50387 SODIUM 139 MMOL/L 11/11 Unknown COMPREHENSIVE METABOLIC 16281 CREATININE 1.00 MG/DL 11/2010 Unknown COMPREHENSIVE METABOLIC 46498 CALCIUM 9.5 MG/DL 2010 Unknown COMPREHENSIVE METABOLIC 75223 POTASSIUM 4.5 MMOL/L 11/11 Unknown COMPREHENSIVE METABOLIC 69405 PROT TOT 6.9 GM/DL 2010 Unknown COMPREHENSIVE METABOLIC 86989 Glucose 111 MG/DL 2010 Unknown COMPREHENSIVE METABOLIC 49385 BICARB 26 MMOL/L 2010 Unknown COMPREHENSIVE METABOLIC 32529 ANION GAP 7 MEQ/L 2010 Unknown HEMOGLOBIN A1C (GLYCOSYLATED) 60035 A1C HPLC 05858-5 5.6 % 07/24/2010 Unknown GFR CALC 0216232 GFR AA >60 ML/MIN 07/23/2010 Unknown GFR CALC 0409470 GFR NON-AA >60 ML/MIN 07/23/2010 Unknown COMPREHENSIVE METABOLIC 47027 AST 19 U/L 2010 Unknown COMPREHENSIVE METABOLIC 50095 ALT 33 IU/L 2010 Unknown COMPREHENSIVE METABOLIC 27822 BUN 14 MG/DL 2010 Unknown COMPREHENSIVE METABOLIC 54056 ALBUMIN 4.7 GM/DL 2010 Unknown COMPREHENSIVE METABOLIC 01086 CHLORIDE 107 MMOL/L 07/23 Unknown COMPREHENSIVE METABOLIC 11313 BILI TOT 0.4 MG/DL 2010 Unknown COMPREHENSIVE METABOLIC 07275 ALK PHOS 80 U/L 2010 Unknown COMPREHENSIVE METABOLIC 04417 SODIUM 141 MMOL/L 07/23 Unknown COMPREHENSIVE METABOLIC 09509 CREATININE 0.97 MG/DL 07/05 Unknown COMPREHENSIVE METABOLIC 05563 CALCIUM 9.5 MG/DL 2010 Unknown COMPREHENSIVE METABOLIC 56028 POTASSIUM 4.1 MMOL/L 07/23 Unknown COMPREHENSIVE METABOLIC 03623 PROT TOT 6.8 GM/DL 2010 Unknown COMPREHENSIVE METABOLIC 62171 Glucose 120 MG/DL 2010 Unknown COMPREHENSIVE METABOLIC 52422 BICARB 26 MMOL/L 2010 Unknown COMPREHENSIVE METABOLIC 14253 ANION GAP 8 MEQ/L 2010 Unknown LIPID GROUP 44689 HDL TEST 41 MG/DL 07/23/2010 Unknown LIPID GROUP 07906 TRIG 175 MG/DL 07/23/2010 Unknown LIPID GROUP 22971 TEST LDL 72 MG/DL 07/23/2010 Unknown LIPID GROUP 27072 CHOL 148 MG/DL 07/23/2010 Unknown LIPID GROUP 25238 RCHOL/HDL 3.61 RATIO 07/23/2010 Unknow n PSA FREE AND TOTAL 84070|08966 % FREE PSA FOOTNOTE % 011 Unknown PSA FREE AND TOTAL 10971|82999 XPSA TOTAL 0.83 NG/ML 011 Unknown PSA FREE AND TOTAL 94062|96630 XPSA FREE 0.13 NG/ML 04/26/19 11 Unknown VITAMIN D TOTAL (25 HYDROXY) 21331 VIT D TOTL 26 NG/ML 04/22/2010 Unknown TESTOSTERONE TOTAL 85708 TESTOS TO 387 NG/DL 04/19/2010 Unknown GFR CALC 3728330 GFR AA >60 ML/MIN 04/19/2010 Unknown GFR CALC 4430994 GFR NON-AA >60 ML/MIN 04/19/2010 Unknown COMPLETE BLOOD COUNT 57694 WBC 7.0 10e9/L 04/19/19 11 Unknown COMPLETE BLOOD COUNT 05785 RBC 5.07 10e12/L 2010 Unknown COMPLETE BLOOD COUNT 45021 HGB 15.6 g/dL 1 Unknown COMPLETE BLOOD COUNT 74553 HCT DET 46.2 % 1 Unknown COMPLETE BLOOD COUNT 08990 MCV 91.1 fL 1 Unknown COMPLETE BLOOD COUNT 29902 MCH 30.8 pg 1 Unknown COMPLETE BLOOD COUNT 15068 MCHC 33.8 g/dL 1 Unknown COMPLETE BLOOD COUNT 54540 PLT 205 10e9/L 04/19/19 11 Unknown COMPLETE BLOOD COUNT 19342 MPV 11.1 fL 1 Unknown COMPLETE BLOOD COUNT 47119 SAMIR % 62.4 % 1 Unknown COMPLETE BLOOD COUNT 72434 LY % 28.5 % 1 Unknown COMPLETE BLOOD COUNT 38755 MON % 6.9 % 1 Unknown COMPLETE BLOOD COUNT 82426 EOS % 2.1 % 1 Unknown COMPLETE BLOOD COUNT 15181 BASO % 0.1 % 1 Unknown COMPLETE BLOOD COUNT 37390 RDW 13.4 % 1 Unknown COMPLETE BLOOD COUNT 79060 ABS SAMIR 4.37 10e9/L 011 Unknown COMPLETE BLOOD COUNT 59735 ABS LYMPH 2.00 10e9/L 011 Unknown COMPLETE BLOOD COUNT 18584 ABS MONO 0.48 10e9/L 011 Unknown COMPLETE BLOOD COUNT 31798 ABS EOS 0.15 10e9/L 011 Unknown COMPLETE BLOOD COUNT 58674 ABS BASO 0.01 10e9/L 011 Unknown COMPLETE BLOOD COUNT 42390 RDW-SD 43.8 fL 1 Unknown LIPID GROUP 17372 HDL TEST 39 MG/DL 04/19/2010 Unknown LIPID GROUP 28735 TRIG 244 MG/DL 04/19/2010 Unknown LIPID GROUP 92866 TEST LDL 168 MG/DL 04/19/2010 Unknown LIPID GROUP 01985 CHOL 256 MG/DL 04/19/2010 Unknown LIPID GROUP 42334 RCHOL/HDL 6.56 RATIO 04/19/2010 Unknow n COMPREHENSIVE METABOLIC 29108 AST 28 U/L 2010 Unknown COMPREHENSIVE METABOLIC 67630 ALT 46 IU/L 2010 Unknown COMPREHENSIVE METABOLIC 35281 BUN 14 MG/DL 2010 Unknown COMPREHENSIVE METABOLIC 47549 ALBUMIN 4.9 GM/DL 2010 Unknown COMPREHENSIVE METABOLIC 23085 CHLORIDE 104 MMOL/L 04/19 Unknown COMPREHENSIVE METABOLIC 95390 BILI TOT 0.8 MG/DL 2010 Unknown COMPREHENSIVE METABOLIC 56080 ALK PHOS 71 U/L 2010 Unknown COMPREHENSIVE METABOLIC 66957 SODIUM 139 MMOL/L 04/19 Unknown COMPREHENSIVE METABOLIC 16666 CREATININE 1.06 MG/DL 04/06 Unknown COMPREHENSIVE METABOLIC 92826 CALCIUM 9.9 MG/DL 2010 Unknown COMPREHENSIVE METABOLIC 24739 POTASSIUM 4.3 MMOL/L 04/19 Unknown COMPREHENSIVE METABOLIC 15322 PROT TOT 7.2 GM/DL 2010 Unknown COMPREHENSIVE METABOLIC 32083 Glucose 99 MG/DL 2010 Unknown COMPREHENSIVE METABOLIC 09521 BICARB 28 MMOL/L 2010 Unknown COMPREHENSIVE METABOLIC 20094 ANION GAP 7 MEQ/L 2010 Unknown FREE T4 17978 FREE T4 1.26 NG/DL 04/19/2010 Unknown Procedures Procedure Codes Date ROUTINE VENIPUNCTURE CPT-4: 85701 08/24/2019 COMPREHEN METABOLIC PANEL CPT-4: 55448 08/24/2019 A1C HPLC CPT-4: 94211 08/24/2019 ROUTINE VENIPUNCTURE CPT-4: 50396 05/24/2019 COMPREHEN METABOLIC PANEL CPT-4: 34919 05/24/2019 A1C HPLC CPT-4: 29976 05/24/2019 FLU VACC PRSV FREE INC ANTIG 65 AND OLDER CPT-4: 07504 01/26/2019 FLU VACC PRSV FREE INC ANTIG 65 AND OLDER CPT-4: 58562 01/26/2019 ADMIN INFLUENZA VIRUS VAC CPT-4: G0008 01/26/2019 ROUTINE VENIPUNCTURE CPT-4: 35563 01/26/2019 COMPREHEN METABOLIC PANEL CPT-4: 16380 01/26/2019 COMPLETE CBC W/AUTO DIFF WBC CPT-4: 02096 01/26/2019 LIPID PANEL CPT-4: 76285 01/26/2019 A1C HPLC CPT-4: 19848 01/26/2019 ROUTINE VENIPUNCTURE CPT-4: 14138 09/30/2018 METABOLIC PANEL TOTAL CA CPT-4: 14023 09/30/2018 URINALYSIS NONAUTO W/O SCOPE CPT-4: 85105 08/19/2018 URINE CULTURE/ COLONY COUNT CPT-4: 51865 08/19/2018 MICROALBUMIN QUANTITATIVE CPT-4: 77992 08/19/2018 ROUTINE VENIPUNCTURE CPT-4: 73355 08/16/2018 ASSAY THYROID STIM HORMONE CPT-4: 22193 08/16/2018 COMPREHEN METABOLIC PANEL CPT-4: 31519 08/16/2018 COMPLETE CBC W/AUTO DIFF WBC CPT-4: 67567 08/16/2018 LIPID PANEL CPT-4: 36443 08/16/2018 A1C HPLC CPT-4: 37175 08/16/2018 LIPID PANEL CPT-4: 41894 05/05/2018 COMPREHEN METABOLIC PANEL CPT-4: 62247 05/05/2018 ROUTINE VENIPUNCTURE CPT-4: 21347 05/05/2018 A1C HPLC CPT-4: 80495 05/05/2018 COMPLETE CBC W/AUTO DIFF WBC CPT-4: 34803 05/05/2018 ASSAY THYROID STIM HORMONE CPT-4: 07019 05/05/2018 MICROALBUMIN QUANTITATIVE CPT-4: 18866 01/19/2018 PRESCRIP TRANSMIT VIA ERX SY CPT-4: G8553 01/19/2018 ROUTINE VENIPUNCTURE CPT-4: 66024 01/13/2018 COMPREHEN METABOLIC PANEL CPT-4: 16858 01/13/2018 A1C HPLC CPT-4: 52243 01/13/2018 LIPID PANEL CPT-4: 42040 01/13/2018 ASSAY OF PSA TOTAL CPT-4: 70943 01/13/2018 ASSAY THYROID STIM HORMONE CPT-4: 24793 01/13/2018 ROUTINE VENIPUNCTURE CPT-4: 16854 10/06/2017 COMPREHEN METABOLIC PANEL CPT-4: 30392 10/06/2017 COMPLETE CBC W/AUTO DIFF WBC CPT-4: 88018 10/06/2017 LIPID PANEL CPT-4: 32153 10/06/2017 A1C HPLC CPT-4: 66126 10/06/2017 VITAMIN B-12 CPT-4: 88203 10/06/2017 DESTRUCT PREMALG LESION (Cryosurgery) CPT-4: 07885 DESTRUCT PREMALG LES 2-14 CPT-4: 14794 04/23/2017 PRESCRIP TRANSMIT VIA ERX SY CPT-4: G8553 03/11/2017 ROUTINE VENIPUNCTURE CPT-4: 61206 03/05/2017 ASSAY OF FREE THYROXINE CPT-4: 35739 03/05/2017 ASSAY THYROID STIM HORMONE CPT-4: 98686 03/05/2017 COMPREHEN METABOLIC PANEL CPT-4: 73613 03/05/2017 COMPLETE CBC W/AUTO DIFF WBC CPT-4: 99888 03/05/2017 LIPID PANEL CPT-4: 95518 03/05/2017 A1C HPLC CPT-4: 38660 03/05/2017 ROUTINE VENIPUNCTURE CPT-4: 01882 06/16/2016 ASSAY OF FREE THYROXINE CPT-4: 87220 06/16/2016 ASSAY THYROID STIM HORMONE CPT-4: 80159 06/16/2016 COMPREHEN METABOLIC PANEL CPT-4: 37193 06/16/2016 COMPLETE CBC W/AUTO DIFF WBC CPT-4: 34423 06/16/2016 LIPID PANEL CPT-4: 36796 06/16/2016 A1C HPLC CPT-4: 33118 06/16/2016 ROUTINE VENIPUNCTURE CPT-4: 19043 03/06/2016 ASSAY OF FREE THYROXINE CPT-4: 47336 03/06/2016 ASSAY THYROID STIM HORMONE CPT-4: 83101 03/06/2016 COMPREHEN METABOLIC PANEL CPT-4: 94961 03/06/2016 COMPLETE CBC W/AUTO DIFF WBC CPT-4: 56165 03/06/2016 LIPID PANEL CPT-4: 86303 03/06/2016 A1C HPLC CPT-4: 62609 03/06/2016 PRESCRIP TRANSMIT VIA ERX SY CPT-4: G8553 09/10/2015 PNEUMOCOCCAL VACC 23 ROSANNE IM CPT-4: 04406 09/06/2015 ADMIN PNEUMOCOCCAL VACCINE CPT-4: G0009 09/06/2015 ROUTINE VENIPUNCTURE CPT-4: 55703 08/31/2015 COMPREHEN METABOLIC PANEL CPT-4: 62963 08/31/2015 COMPLETE CBC W/AUTO DIFF WBC CPT-4: 18335 08/31/2015 LIPID PANEL CPT-4: 08888 08/31/2015 ASSAY OF PSA TOTAL CPT-4: 42534 08/31/2015 A1C HPLC CPT-4: 92938 08/31/2015 ASSAY OF FREE THYROXINE CPT-4: 45293 08/31/2015 ASSAY THYROID STIM HORMONE CPT-4: 70571 08/31/2015 PRESCRIP TRANSMIT VIA ERX SY CPT-4: G8553 06/29/2015 FLU VACC PRSV FREE INC ANTIG 65 AND OLDER CPT-4: 93195 01/17/2015 PNEUMOCOCCAL VACC 13 ROSANNE IM CPT-4: 83412 01/17/2015 ADMIN INFLUENZA VIRUS VAC CPT-4: G0008 01/17/2015 ADMIN PNEUMOCOCCAL VACCINE CPT-4: G0009 01/17/2015 DESTRUCT PREMALG LESION (Cryosurgery) CPT-4: 71273 PRESCRIP TRANSMIT VIA ERX SY CPT-4: G8553 01/17/2015 ROUTINE VENIPUNCTURE CPT-4: 72617 01/12/2015 COMPREHEN METABOLIC PANEL CPT-4: 82734 01/12/2015 COMPLETE CBC W/AUTO DIFF WBC CPT-4: 40137 01/12/2015 LIPID PANEL CPT-4: 17173 01/12/2015 A1C HPLC CPT-4: 69378 01/12/2015 DESTRUCT PREMALG LESION (Cryosurgery) CPT-4: 39185 ROUTINE VENIPUNCTURE CPT-4: 26491 08/15/2014 COMPREHEN METABOLIC PANEL CPT-4: 52626 08/15/2014 COMPLETE CBC W/AUTO DIFF WBC CPT-4: 87752 08/15/2014 LIPID PANEL CPT-4: 83809 08/15/2014 A1C HPLC CPT-4: 27833 08/15/2014 ASSAY OF PSA TOTAL CPT-4: 14843 08/15/2014 ASSAY OF FREE THYROXINE CPT-4: 49120 08/15/2014 ASSAY THYROID STIM HORMONE CPT-4: 59230 08/15/2014 ROUTINE VENIPUNCTURE CPT-4: 05514 12/14/2013 ASSAY OF FREE THYROXINE CPT-4: 98363 12/14/2013 ASSAY THYROID STIM HORMONE CPT-4: 29465 12/14/2013 COMPREHEN METABOLIC PANEL CPT-4: 39360 12/14/2013 COMPLETE CBC W/AUTO DIFF WBC CPT-4: 45909 12/14/2013 LIPID PANEL CPT-4: 30838 12/14/2013 A1C HPLC CPT-4: 06665 12/14/2013 ROUTINE VENIPUNCTURE CPT-4: 25952 06/08/2013 ASSAY OF FREE THYROXINE CPT-4: 77149 06/08/2013 ASSAY THYROID STIM HORMONE CPT-4: 62463 06/08/2013 COMPREHEN METABOLIC PANEL CPT-4: 74777 06/08/2013 COMPLETE CBC W/AUTO DIFF WBC CPT-4: 49897 06/08/2013 LIPID PANEL CPT-4: 01549 06/08/2013 A1C HPLC CPT-4: 92785 06/08/2013 ROUTINE VENIPUNCTURE CPT-4: 57454 11/11/2012 COMPREHEN METABOLIC PANEL CPT-4: 58309 11/11/2012 COMPLETE CBC W/AUTO DIFF WBC CPT-4: 21356 11/11/2012 LIPID PANEL CPT-4: 39642 11/11/2012 A1C GLYCOSYLATED HEMOGLOBIN TEST CPT-4: 11256 013 ASSAY THYROID STIM HORMONE CPT-4: 59190 11/11/2012 ROUTINE VENIPUNCTURE CPT-4: 63172 05/04/2012 ASSAY OF FREE THYROXINE CPT-4: 41589 05/04/2012 ASSAY THYROID STIM HORMONE CPT-4: 34051 05/04/2012 COMPREHEN METABOLIC PANEL CPT-4: 67436 05/04/2012 COMPLETE CBC W/AUTO DIFF WBC CPT-4: 75167 05/04/2012 LIPID PANEL CPT-4: 98113 05/04/2012 DESTRUCT PREMALG LESION (Cryosurgery) CPT-4: 90494 DESTRUCT PREMALG LES 2-14 CPT-4: 64707 03/02/2012 ROUTINE VENIPUNCTURE CPT-4: 55444 10/29/2011 COMPREHEN METABOLIC PANEL CPT-4: 61650 10/29/2011 LIPID PANEL CPT-4: 65972 10/29/2011 A1C GLYCOSYLATED HEMOGLOBIN TEST CPT-4: 76576 012 ROUTINE VENIPUNCTURE CPT-4: 14454 07/29/2011 COMPREHEN METABOLIC PANEL CPT-4: 83697 07/29/2011 LIPID PANEL CPT-4: 40277 07/29/2011 A1C GLYCOSYLATED HEMOGLOBIN TEST CPT-4: 24333 012 ROUTINE VENIPUNCTURE CPT-4: 90520 03/14/2011 COMPREHEN METABOLIC PANEL CPT-4: 24322 03/14/2011 LIPID PANEL CPT-4: 32138 03/14/2011 A1C GLYCOSYLATED HEMOGLOBIN TEST CPT-4: 79820 011 ROUTINE VENIPUNCTURE CPT-4: 66240 11/11/2010 COMPREHEN METABOLIC PANEL CPT-4: 22771 11/11/2010 LIPID PANEL CPT-4: 00512 11/11/2010 URINE CULTURE/ COLONY COUNT CPT-4: 38726 11/11/2010 URINALYSIS NONAUTO W/O SCOPE CPT-4: 91684 10/29/2010 URINE CULTURE/ COLONY COUNT CPT-4: 58584 10/29/2010 LIPID PANEL CPT-4: 65710 07/23/2010 COMPREHEN METABOLIC PANEL CPT-4: 88186 07/23/2010 ROUTINE VENIPUNCTURE CPT-4: 85666 07/23/2010 ROUTINE VENIPUNCTURE CPT-4: 76685 04/26/2010 PSA FREE AND TOTAL CPT-4: 84850|95280 04/26/2010 OCCULT BLOOD FECES CPT-4: 80938 04/24/2010 ROUTINE VENIPUNCTURE CPT-4: 93307 04/19/2010 COMPLETE CBC W/AUTO DIFF WBC CPT-4: 55804 04/19/2010 COMPREHEN METABOLIC PANEL CPT-4: 60553 04/19/2010 LIPID PANEL CPT-4: 56219 04/19/2010 TESTOSTERONE TOTAL - MALE CPT-4: 26283 04/19/2010 ASSAY THYROID STIM HORMONE CPT-4: 64685 04/19/2010 ASSAY OF FREE THYROXINE CPT-4: 62170 04/19/2010 VITAMIN D TOTAL (25 HYDROXY) CPT-4: 09782 04/19/2010 Vital Signs Date Vital 08/30/2019 Blood Pressure 1: 144/76 Code: 8480-6 Heart Rate 1: 84 bpm Respiratory Rate: 20 bpm SpO2: 98% Temperature: 36.9 (C) / 98.4 (F) We ight: 240 lbs 06/02/2019 Blood Pressure 1: 132/80 Code: 8480-6 BMI: 29.5 Code: 71472-5 Heart Rate 1: 64 bpm Height: 6'3" [...] 1: 112/70 Code: 8480-6 BMI: 28.9 Code: 24900-8 Heart Rate 1: 60 bpm Height: 6'3" Respiratory Rate: 20 bpm SpO2: 95% Tempera ture: 36.6 (C) / 97.9 (F) Weight: 231 lbs 01/19/2018 Blood Pressure 1: 150/82 Code: 8480-6 Heart Rate 1: 63 bpm Respiratory Rate: 18 bpm SpO2: 98% Temperature: 36.0 (C) / 96.8 (F) We ight: 225 lbs 10/15/2017 Blood Pressure 1: 126/82 Code: 8480-6 BMI: 27.9 Code: 85087-5 Heart Rate 1: 64 bpm Height: 6'3" Respiratory Rate: 20 bpm SpO2: 96% Tempera ture: 36.7 (C) / 98.1 (F) Weight: 223 lbs 04/23/2017 Blood Pressure 1: 136/74 Code: 8480-6 BMI: 28.7 Code: 68637-9 Heart Rate 1: 76 bpm Height: 6'3" Respiratory Rate: 20 bpm Temperature: 37 .0 (C) / 98.6 (F) Weight: 230 lbs 03/11/2017 Blood Pressure 1: 136/66 Code: 8480-6 BMI: 28.6 Code: 80511-6 Heart Rate 1: 60 bpm Height: 6'3" Respiratory Rate: 20 bpm Temperature: 36 .7 (C) / 98.1 (F) Weight: 229 lbs 07/09/2016 Blood Pressure 1: 132/80 Code: 8480-6 BMI: 27.7 Code: 46594-4 Heart Rate 1: 64 bpm Height: 6'3" Respiratory Rate: 20 bpm SpO2: 96% Tempera ture: 36.9 (C) / 98.4 (F) Weight: 222 lbs 03/10/2016 Blood Pressure 1: 134/78 Code: 8480-6 BMI: 28.5 Code: 77823-9 Heart Rate 1: 60 bpm Height: 6'3" Respiratory Rate: 20 bpm SpO2: 96% Tempera ture: 36.7 (C) / 98.1 (F) Weight: 228 lbs 09/12/2015 Blood Pressure 1: 136/78 Code: 8480-6 Heart Rate 1: 84 bpm Height: Respiratory Rate: 24 bpm SpO2: 97% Temperature: 36.4 (C) / 97.6 (F) We ight: 09/10/2015 Blood Pressure 1: 124/76 Code: 8480-6 BMI: 28.5 Code: 20821-3 Heart Rate 1: 76 bpm Height: 6'3" Respiratory Rate: 24 bpm SpO2: 97% Tempera ture: 36.4 (C) / 97.6 (F) Weight: 228 lbs 09/06/2015 Blood Pressure 1: 124 Code: 8480-6 BMI: 29.0 Code: 09735-7 Heart Rate 1: 66 bpm Height: 6'3" Respiratory Rate: 20 bpm SpO2: 97% Tempera ture: 36.4 (C) / 97.6 (F) Weight: 232 lbs 06/29/2015 Blood Pressure 1: 124 Code: 8480-6 Heart Rate 1: 88 bpm Height: Respiratory Rate: 20 bpm Temperature: 36.7 (C) / 98.1 (F) Weight: 01/17/2015 Blood Pressure 1: 124 Code: 8480-6 BMI: 27.7 Code: 13629-2 Heart Rate 1: 76 bpm Height: 6'3" Respiratory Rate: 20 bpm Temperature: 36 .6 (C) / 97.8 (F) Weight: 222 lbs 09/19/2014 Blood Pressure 1: 128/80 Code: 8480-6 BMI: 27.4 Code: 10477-5 Heart Rate 1: 64 bpm Height: 6'3" Respiratory Rate: 20 bpm Temperature: 36 .4 (C) / 97.6 (F) Weight: 219 lbs 10/17/2013 Blood Pressure 1: 116/70 Code: 8480-6 Heart Rate 1: 88 bpm Respiratory Rate: 20 bpm Temperature: 36.9 (C) / 98.4 (F) Weight: 220 lbs 09/23/2013 Blood Pressure 1: 124/80 Code: 8480-6 BMI: 28.7 Code: 68340-9 Heart Rate 1: 76 bpm Height: 6'3" Respiratory Rate: 20 bpm Temperature: 36 .8 (C) / 98.2 (F) Weight: 230 lbs 07/22/2013 Blood Pressure 1: 128/70 Code: 8480-6 He art Rate 1: 78 bpm 06/20/2013 Blood Pressure 1: 144/86 Code: 8480-6 BMI: 28.7 Code: 23918-1 Heart Rate 1: 92 bpm Height: 6'3" Respiratory Rate: 20 bpm Temperature: 36 .4 (C) / 97.6 (F) Weight: 230 lbs 11/25/2012 Blood Pressure 1: 128/80 Code: 8480-6 BMI: 27.5 Code: 94906-5 Heart Rate 1: 92 bpm Height: 6'3" Respiratory Rate: 20 bpm Temperature: 36 .8 (C) / 98.3 (F) Weight: 220 lbs 08/27/2012 Blood Pressure 1: 142/80 Code: 8480-6 BMI: 27.7 Code: 76447-4 Heart Rate 1: 76 bpm Height: 6'3" Respiratory Rate: 20 bpm Temperature: 36 .8 (C) / 98.3 (F) Weight: 222 lbs 05/11/2012 Blood Pressure 1: 136/80 Code: 8480-6 BMI: 27.7 Code: 08066-6 Heart Rate 1: 76 bpm Height: 6'3" Respiratory Rate: 20 bpm Temperature: 36 .8 (C) / 98.3 (F) Weight: 222 lbs 03/02/2012 Blood Pressure 1: 136/70 Code: 8480-6 BMI: 28.0 Code: 55239-0 Heart Rate 1: 80 bpm Height: 6'3" Respiratory Rate: 20 bpm Temperature: 36 .6 (C) / 97.8 (F) Weight: 224 lbs 12/11/2011 Blood Pressure 1: 142/80 Code: 8480-6 BMI: 27.1 Code: 80013-9 Heart Rate 1: 84 bpm Height: 6'3" Respiratory Rate: 20 bpm Temperature: 36 .9 (C) / 98.4 (F) Weight: 217 lbs 08/14/2011 Blood Pressure 1: 130/82 Code: 8480-6 He art Rate 1: 64 bpm 07/29/2011 Blood Pressure 1: 132/64 Code: 8480-6 BMI: 26.7 Code: 36085-4 Heart Rate 1: 72 bpm Height: 6'3" [...] 1: 142/88 Code: 8480-6 BMI: 26.4 Code: 50417-9 Heart Rate 1: 80 bpm Height: 6'3" [...] cryotherapy follow up 12/11/2011 discuss labs from [facility] 2011 lab draw 10/29/2011 blood pressure check [...] labs Encounters Encounter Performer Location Codes Date ([id number]) OFFICE/OUTPATIENT VISIT EST Diagnosis: Type 2 diabetes mellitus with hyperglycemia[ICD10: E11.65] Diagnosis: Essential hypertension[ICD10: I10] Diagnosis: Stress reaction[ICD10: F43.0] Najma MCARTHUR [employer] [facility] CPT-4: 03672 08/30/2019 ([id number]) NURSE/OUTPATIENT VISIT EST Diagnosis: Essential (primary) hypertension[ICD10: I10] Diagnosis: Type 2 diabetes mellitus with hyperglycemia[ICD10: E11.65] Najma MCARTHUR [employer] CPT-4: 62255 08/24/2019 ([id number]) OFFICE/OUTPATIENT VISIT EST Diagnosis: Essential (primary) hypertension[ICD10: I10] Diagnosis: Gastro-esophageal reflux disease without esophagitis[ICD10: K21.9] Diagnosis: Type 2 diabetes mellitus with hyperglycemia[ICD10: E11.65] Najma MCARTHUR [employer] CPT-4: 57378 06/02/2019 ([id number]) NURSE/OUTPATIENT VISIT EST Diagnosis: Type 2 diabetes mellitus without complications[ICD10: E11.9] Diagnosis: Essential (primary) hypertension[ICD10: I10] Diagnosis: Mixed hyperlipidemia[ICD10: E78.2] Najma KATHLEENNDBIJAN WADE [facility] CPT-4: 16532 05/24/2019 ([id number]) OFFICE/OUTPATIENT VISIT EST Diagnosis: Essential (primary) hypertension[ICD10: I10] Diagnosis: Type 2 diabetes mellitus without complications[ICD10: E11.9] Diagnosis: Mixed hyperlipidemia[ICD10: E78.2] Najma GODINEZ SMatilde KATHLEENNDBIJAN [employer] [facility] CPT-4: 08881 01/31/2019 ([id number]) NURSE/OUTPATIENT VISIT EST Diagnosis: Mixed hyperlipidemia[ICD10: E78.2] Diagnosis: Type 2 diabetes mellitus without complications[ICD10: E11.9] Diagnosis: Essential (primary) hypertension[ICD10: I10] Diagnosis: Chronic kidney disease, unspecified[ICD10: N18.9] Najma MANUELLINE Matilda OG [employer] [facility] CPT-4: 06699 01/26/2019 ([id number]) NURSE/OUTPATIENT VISIT EST Diagnosis: Chronic kidney disease, unspecified[ICD10: N18.9] Diagnosis: Essential (primary) hypertension[ICD10: I10] Najma OG DO [facility] CPT-4: 79991 09/30/2018 ([id number]) OFFICE/OUTPATIENT VISIT EST Diagnosis: Essential (primary) hypertension[ICD10: I10] Diagnosis: Type 2 diabetes mellitus without complications[ICD10: E11.9] Diagnosis: Mixed hyperlipidemia[ICD10: E78.2] Diagnosis: Unspecified kidney failure[ICD10: N19] Najma Kathleenpepperbijan SHABNAM CHAPMAN Matilda KATHLEENNDBIJAN [employer] [facility] CPT-4: 82766 08/19/2018 ([id number]) NURSE/OUTPATIENT VISIT EST Diagnosis: Essential (primary) hypertension[ICD10: I10] Diagnosis: Type 1 diabetes mellitus with unspecified complications[ICD10: E10.8] Diagnosis: Mixed hyperlipidemia[ICD10: E78.2] Najma GODINEZ SMatilde OG [facility] CPT-4: 78626 08/16/2018 ([id number]) OFFICE/OUTPATIENT VISIT EST Diagnosis: Essential (primary) hypertension[ICD10: I10] Diagnosis: Type 2 diabetes mellitus without complications[ICD10: E11.9] Diagnosis: Mixed hyperlipidemia[ICD10: E78.2] Najma OG [facility] CPT-4: 27625 05/10/2018 ([id number]) NURSE/OUTPATIENT VISIT EST Diagnosis: Essential (primary) hypertension[ICD10: I10] Diagnosis: Mixed hyperlipidemia[ICD10: E78.2] Diagnosis: Type 1 diabetes mellitus with unspecified complications[ICD10: E10.8] Najma OG [facility] CPT-4: 74521 05/05/2018 ([id number]) OFFICE/OUTPATIENT VISIT EST Diagnosis: Type 2 diabetes mellitus without complications[ICD10: E11.9] Diagnosis: Mixed hyperlipidemia[ICD10: E78.2] Diagnosis: Nicotine dependence, unspecified, uncomplicated[ICD10: F17.200] Diagnosis: Essential (primary) hypertension[ICD10: I10] Najma OG [facility] CPT-4: 87338 01/19/2018 ([id number]) NURSE/OUTPATIENT VISIT EST Diagnosis: Type 1 diabetes mellitus with unspecified complications[ICD10: E10.8] Diagnosis: Essential (primary) hypertension[ICD10: I10] Diagnosis: Male erectile disorder[ICD10: F52.21] Diagnosis: Encounter for screening for malignant neoplasm of prostate[ICD10: Z12.5] Najma OG [facility] CPT-4: 25925 01/13/2018 ([id number]) OFFICE/OUTPATIENT VISIT EST Diagnosis: Type 2 diabetes mellitus without complications[ICD10: E11.9] Diagnosis: Essential (primary) hypertension[ICD10: I10] Diagnosis: Mixed hyperlipidemia[ICD10: E78.2] Najma GODINEZ SaygentMatilde [facility] CPT-4: 06473 10/15/2017 ([id number]) NURSE/OUTPATIENT VISIT EST Diagnosis: Type 2 diabetes mellitus without complications[ICD10: E11.9] Diagnosis: Mixed hyperlipidemia[ICD10: E78.2] Diagnosis: Essential (primary) hypertension[ICD10: I10] Diagnosis: Glossitis[ICD10: K14.0] Najma THAKKAR [employer] [facility] CPT-4: 65036 10/06/2017 ([id number]) OFFICE/OUTPATIENT VISIT EST Diagnosis: Type 2 diabetes mellitus without complications[ICD10: E11.9] Diagnosis: Mixed hyperlipidemia[ICD10: E78.2] Diagnosis: Essential (primary) hypertension[ICD10: I10] Najma OG DO [facility] CPT-4: 38550 03/11/2017 ([id number]) OFFICE/OUTPATIENT VISIT EST Diagnosis: Type 1 diabetes mellitus with unspecified complications[ICD10: E10.8] Diagnosis: Mixed hyperlipidemia[ICD10: E78.2] Diagnosis: Essential (primary) hypertension[ICD10: I10] Diagnosis: Other fatigue[ICD10: R53.83] Najma OG [employer] [facility] CPT-4: 04660 03/05/2017 ([id number]) OFFICE/OUTPATIENT VISIT EST Diagnosis: Type 2 diabetes mellitus without complications[ICD10: E11.9] Diagnosis: Mixed hyperlipidemia[ICD10: E78.2] Diagnosis: Essential (primary) hypertension[ICD10: I10] Diagnosis: Nicotine dependence, unspecified, uncomplicated[ICD10: F17.200] Najma OG [employer] [facility] CPT-4: 17755 07/09/2016 ([id number]) OFFICE/OUTPATIENT VISIT EST Diagnosis: Type 1 diabetes mellitus with unspecified complications[ICD10: E10.8] Diagnosis: Mixed hyperlipidemia[ICD10: E78.2] Diagnosis: Essential (primary) hypertension[ICD10: I10] Najma OG DO [facility] CPT-4: 26862 06/16/2016 ([id number]) OFFICE/OUTPATIENT VISIT EST Diagnosis: Type 2 diabetes mellitus without complications[ICD10: E11.9] Diagnosis: Mixed hyperlipidemia[ICD10: E78.2] Diagnosis: Essential (primary) hypertension[ICD10: I10] Najma OG [employer] [facility] CPT-4: 77622 03/10/2016 ([id number]) OFFICE/OUTPATIENT VISIT EST Diagnosis: Type 1 diabetes mellitus with unspecified complications[ICD10: E10.8] Diagnosis: Mixed hyperlipidemia[ICD10: E78.2] Diagnosis: Essential (primary) hypertension[ICD10: I10] Najma MCARTHUR Matilda O[facility] CPT-4: 73562 03/06/2016 ([id number]) OFFICE/OUTPATIENT VISIT EST Diagnosis: Bitten or stung by nonvenomous insect and other nonvenomous arthropods, subsequent encounter[ICD10: W57.XXXD] Diagnosis: Insect bite (nonvenomous), right thigh, subsequent encounter[ICD10: S70.361D] Barbara Brower NAJMA AmeenaMatilde Tilkee [facility] CPT-4: 37490 11/2015 ([id number]) OFFICE/OUTPATIENT VISIT EST Diagnosis: Bitten or stung by nonvenomous insect and other nonvenomous arthropods, initial encounter[ICD10: W57.XXXA] Diagnosis: Insect bite (nonvenomous), right thigh, initial encounter[ICD10: S70.361A] Barbaralinnette Brower NAJMA AmeenaMatilde Tilkee [facility] CPT-4: 21392 09/2015 ([id number]) OFFICE/OUTPATIENT VISIT EST Diagnosis: Mixed hyperlipidemia[ICD10: E78.2] Diagnosis: Essential (primary) hypertension[ICD10: I10] Diagnosis: Type 2 diabetes mellitus without complications[ICD10: E11.9] Diagnosis: Encounter for immunization[ICD10: Z23] Diagnosis: Encounter for screening for malignant neoplasm of colon[ICD10: Z12.11] Diagnosis: Abnormal weight gain[ICD10: R63.5] Barbara Brower ANUM GODINEZ Matilda KATHLEEN[employer] [facility] CPT-4: 43564 09/06/2015 ([id number]) OFFICE/OUTPATIENT VISIT EST Diagnosis: Type 2 diabetes mellitus without complications[ICD10: E11.9] Diagnosis: Mixed hyperlipidemia[ICD10: E78.2] Diagnosis: Essential (primary) hypertension[ICD10: I10] Diagnosis: Encounter for screening for malignant neoplasm of prostate[ICD10: Z12.5] Diagnosis: Other fatigue[ICD10: R53.83] Najma MCARTHUR [employer] [facility] CPT-4: 83711 08/31/2015 OFFICE/OUTPATIENT VISIT EST Diagnosis: Diarrhea, unspecified[ICD10: R19.7] Henrietta SandersonOctavia KAYLEY OG [facility] CPT-4: 52982 06/29/2015 OFFICE/OUTPATIENT VISIT EST Diagnosis: PNEUMOCOCCAL VACCINE[ICD10: Z23] Diagnosis: FLU VACCINE[ICD10: Z23] Diagnosis: Essential (primary) hypertension[ICD10: I10] Diagnosis: Mixed hyperlipidemia[ICD10: E78.2] Diagnosis: Type 1 diabetes mellitus with unspecified complications[ICD10: E10.8] Diagnosis: Actinic keratosis[ICD10: L57.0] Najma MANUELLINE Matilda OG [facility] CPT-4: 81997 01/17/2015 ([id number]) OFFICE/OUTPATIENT VISIT EST Diagnosis: Type 2 diabetes mellitus without complications[ICD10: E11.9] Diagnosis: Impaired fasting glucose[ICD10: R73.01] Diagnosis: Mixed hyperlipidemia[ICD10: E78.2] Diagnosis: Essential (primary) hypertension[ICD10: I10] Najmaanaid MANUELLINE [facility]ilda [facility] CPT-[facility]: 79376 01/12/2015 ([id number]) OFFICE/OUTPATIENT VISIT EST Diagnosis: - I - HYPERLIPIDEMIA NEC/NOS[ICD9: 272.4] Diagnosis: HYPERTENSION[ICD9: 401.9] Diagnosis: DM W/O COMPLICATION TYPE II[ICD9: 250.00] Diagnosis: ACTINIC KERATOSIS[ICD9: 702.0] Najmaanaid Kathleenpepperbijan MANUELNAJMA Ameena OG [facility] CPT-4: 85994 09/19/2014 ([id number]) OFFICE/OUTPATIENT VISIT EST Diagnosis: HYPERLIPIDEMIA NEC/NOS[ICD9: 272.4] Diagnosis: HYPERTENSION[ICD9: 401.9] Diagnosis: IMPAIRED FASTING GLUCOSE[ICD9: 790.21] Diagnosis: MALAISE AND FATIGUE[ICD9: 780.79] Najma Longbijan FILI Jenkins Matilda OG [employer] [facility] CPT-4: 24503 08/15/2014 ([id number]) OFFICE/OUTPATIENT VISIT EST Diagnosis: HYPERLIPIDEMIA NEC/NOS[ICD9: 272.4] Diagnosis: HYPERTENSION[ICD9: 401.9] Diagnosis: IMPAIRED FASTING GLUCOSE[ICD9: 790.21] Najma OG [employer] [facility] CPT-4: 30580 12/14/2013 ([id number]) OFFICE/OUTPATIENT VISIT EST Diagnosis: Post herpetic neuralgia[ICD9: 053.19] Najma OG DO [facility] CPT-4: 58200 10/17/2013 OFFICE/OUTPATIENT VISIT EST Diagnosis: Shingles[ICD9: 053.9] Diagnosis: Post herpetic neuralgia[ICD9: 053.19] Jeanie OG [employer] [facility] CPT-4: 28236 09/23/2013 ([id number]) OFFICE/OUTPATIENT VISIT EST Diagnosis: HYPERTENSION[ICD9: 401.9] Diagnosis: HYPERLIPIDEMIA NEC/NOS[ICD9: 272.4] Diagnosis: IMPAIRED FASTING GLUCOSE[ICD9: 790.21] Najma LONG [employer] [facility] CPT-4: 83657 06/20/2013 ([id number]) OFFICE/OUTPATIENT VISIT EST Diagnosis: HYPERLIPIDEMIA NEC/NOS[ICD9: 272.4] Diagnosis: MALAISE AND FATIGUE[ICD9: 780.79] Diagnosis: ROUTINE MEDICAL EXAM[ICD9: V70.0] Diagnosis: HYPERTENSION[ICD9: 401.9] Diagnosis: IMPAIRED FASTING GLUCOSE[ICD9: 790.21] Najma LONG [employer] [facility] CPT-4: 17461 06/08/2013 ([id number]) OFFICE/OUTPATIENT VISIT EST Diagnosis: HYPERLIPIDEMIA NEC/NOS[ICD9: 272.4] Diagnosis: HYPERTENSION[ICD9: 401.9] Diagnosis: IMPAIRED FASTING GLUCOSE[ICD9: 790.21] Diagnosis: DIARRHEA[ICD9: 787.91] Najma Stallings [employer] [facility] CPT-4: 06660 11/25/2012 ([id number]) OFFICE/OUTPATIENT VISIT EST Diagnosis: HYPERLIPIDEMIA NEC/NOS[ICD9: 272.4] Diagnosis: HYPERTENSION[ICD9: 401.9] Diagnosis: IMPAIRED FASTING GLUCOSE[ICD9: 790.21] Diagnosis: MALAISE AND FATIGUE[ICD9: 780.79] Najma OG DO [facility] CPT-4: 03835 11/11/2012 OFFICE/OUTPATIENT VISIT EST Diagnosis: Fungal dermatitis[ICD9: 111.9] Diagnosis: Dry skin dermatitis[ICD9: 692.89] Henrietta SowMyriamJim OG DO [facility] CPT-4: 92304 08/27/2012 ([id number]) OFFICE/OUTPATIENT VISIT EST Diagnosis: HYPERTENSION[ICD9: 401.9] Diagnosis: HYPERLIPIDEMIA NEC/NOS[ICD9: 272.4] Najma OG DO [facility] CPT-4: 55678 05/11/2012 ([id number]) OFFICE/OUTPATIENT VISIT EST Diagnosis: HYPERLIPIDEMIA NEC/NOS[ICD9: 272.4] Diagnosis: HYPERTENSION[ICD9: 401.9] Diagnosis: ROUTINE MEDICAL EXAM[ICD9: V70.0] Najma OG DO [facility] CPT-4: 59822 05/04/2012 ([id number]) OFFICE/OUTPATIENT VISIT EST Diagnosis: HYPERTENSION[ICD9: 401.9] Diagnosis: HYPERLIPIDEMIA NEC/NOS[ICD9: 272.4] Diagnosis: IMPAIRED FASTING GLUCOSE[ICD9: 790.21] Najma OG DO [facility] CPT-4: 39208 12/11/2011 ([id number]) OFFICE/OUTPATIENT VISIT EST Diagnosis: HYPERLIPIDEMIA NEC/NOS[ICD9: 272.4] Diagnosis: HYPERTENSION[ICD9: 401.9] Diagnosis: IMPAIRED FASTING GLUCOSE[ICD9: 790.21] Najma LONGER [facility] CPT-4: 64775 10/29/2011 ([id number]) OFFICE/OUTPATIENT VISIT EST Diagnosis: HYPERTENSION[ICD9: 401.9] Najma PAYAN DO [facility] CPT-4: 90640 08/14/2011 ([id number]) OFFICE/OUTPATIENT VISIT EST Diagnosis: HYPERTENSION[ICD9: 401.9] Diagnosis: IMPAIRED FASTING GLUCOSE[ICD9: 790.21] Najma KATHLEENNDBIJAN WADE [facility] CPT-4: 15796 07/29/2011 ([id number]) OFFICE/OUTPATIENT VISIT EST Diagnosis: HYPERTENSION[ICD9: 401.9] Najma KATHLEEN [facility] CPT-4: 97223 07/23/2011 ([id number]) OFFICE/OUTPATIENT VISIT EST Diagnosis: HYPERTENSION[ICD9: 401.9] Najma KATHLEEN [facility] CPT-4: 87604 06/24/2011 OFFICE/OUTPATIENT VISIT EST Diagnosis: HYPERTENSION[ICD9: 401.9] Najma KATHLEEN [facility] CPT-4: 00214 05/20/2011 OFFICE/OUTPATIENT VISIT EST Diagnosis: HYPERTENSION[ICD9: 401.9] Najma KATHLEEN [employer] CPT-4: 21511 04/15/2011 OFFICE/OUTPATIENT VISIT EST Diagnosis: HYPERLIPIDEMIA NEC/NOS[ICD9: 272.4] Diagnosis: IMPAIRED FASTING GLUCOSE[ICD9: 790.21] Najma KATHLEENNDER [employer] CPT-4: 07911 03/18/2011 ([id number]) OFFICE/OUTPATIENT VISIT EST Najma KATHLEENNDER [employer] CPT-4: 14194 07/30/2010 ([id number]) PREV VISIT, EST, AGE 40-64 Najma LONGER [employer] CPT-4: 66931 04/24/2010 Plan of Care Planned Activity Notes Codes Status Date Appointment: [facility] [phone] [id number] [facility] 09/01/2019 Visit Diagnosis Plan: Type [...] : I10 08/30/2019 Appointment: Najma Og WPtel: [address] [place] [address] US FOLLOW UP 08/30/2019 Patient Education: escitalopram oxalate- [employer] Co upon [id number] [email or web address] Completed 08/30/2019 Appointment: Najma Og WPtel: [address] [place] [address] US LAB 08/24/2019 Visit Diagnosis Plan: Type [...] : K21.9 06/02/2019 Appointment: Najma Og WPtel: [address] [place] [address] US FOLLOW UP 06/02/2019 Appointment: Najma Og WPtel: [address] [place] [address] US LAB 05/24/2019 Visit Diagnosis Plan: Essential [...] : E78.2 01/31/2019 Appointment: Najma Og WPtel: [address] [place] [address] US FOLLOW UP 01/31/2019 Appointment: Najma Og WPtel: [address] [place] [address] US LAB 01/26/2019 Appointment: Najma Og WPtel: [address] [place] [address] US LAB 09/30/2018 Visit Diagnosis Plan: Unspecified [...] : E11.9 08/19/2018 Appointment: Najma Og WPtel: [address] [place] [address] US FOLLOW UP 08/19/2018 Appointment: Najma Og WPtel: [address] [place] [address] US LAB 08/16/2018 Visit Diagnosis Plan: Essential [...] : E78.2 05/10/2018 Appointment: Najma Og WPtel: [address] [place] [address] US FOLLOW UP 05/10/2018 Patient Education: Low Back Pain Exercises: Illustration Completed 05/10/2018 Patient Education: Low Back Pain Exercises Completed 05/10/2018 Appointment: Najma Og WPtel: [address] [place], [place] [id number] US LAB 05/05/2018 Visit Diagnosis Plan: Type [...] : E78.2 01/19/2018 Appointment: Najma Og WPtel: [address] [place], [place] [id number] US FOLLOW UP 01/19/2018 Patient Education: Patient Medication Summary Completed 01/19/2018 Appointment: Najma Og WPtel: [address] [place], [place] [id number] US LAB 01/13/2018 Patient Education: Patient Medication [...] : I10 10/15/2017 Appointment: Najma Og WPtel: [address] [place], [place] [phone] US FOLLOW UP 10/15/2017 Patient Education: Patient Medication Summary Completed 10/15/2017 Appointment: Najma Og WPtel: [address] [place], [place] [id number] LAB 10/06/2017 Patient Education: Patient Medication Summary Completed 10/06/2017 Visit Diagnosis Plan: Actinic keratosis Discussion: Cr yotherapy as above ICD-9 : 702.0 ICD-10 : L57.0 04/23/2017 Appointment: Najma Og WPtel: [address] [place], [place] [id number] OFFICE SURGERY 04/23/2017 Patient Education: Patient Medication [...] 272.2 ICD-10 : E78.2 03/11/2017 Appointment: Najma Og WPtel: [address] [place], [place] [id number] FOLLOW UP 03/11/2017 Patient Education: Patient Medication Summary Completed 03/11/2017 Appointment: Najma Og WPtel: [address] [place] [id number] LAB 03/05/2017 Patient Education: Patient Medication Summary [...] : 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 07/09/2016 Appointment: Najma Og WPtel: [address] [place], [place] [phone] US 07/08 lm ~sl 07/09 confirmed~sl FOLLOW UP 08/2016 Patient Education: Patient Medication Summary Completed 07/09/2016 Appointment: Najma Og WPtel: [address] [place], [place] [phone] US LAB 06/16/2016 Patient Education: Patient Medication Summary Completed 06/16/2016 Visit Plan: Lab discussed [place] Lifestyle change for 3mos then check CMP, HbA1C in 3mos Has had flu and pneumonia shot 03/10/2016 Appointment: Najma Og WPtel: [address] [place], [place] [phone] [place] 03/06 confirmed `sl FOLLOW UP 03/10/2016 Patient Education: Patient Medication Summary Completed 03/10/2016 Appointment: Najma Og WPtel: [address] [place], [place] [phone] [place] LAB 03/06/2016 Patient Education: Patient Medication Summary Completed 03/06/2016 Ref[facility]: [id number] [place] Referral Completed 10/22/2015 Visit Plan: Tick bite area looks much be tter Continue current rxs and close monitoring Follow up if any new symptoms or worsening appearance 09/12/2015 Appointment: Barbara Brower [address] [place], [place] [phone] 09/10 confirmed~sl FOLLOW UP 09/12/2015 Patient Education: Patient Medication Summary Completed 09/12/2015 Visit Plan: Cover as above 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 topical steroids to calm down the inflammation(suspect most of redness is due to histamine response vs infection) Monitor closely Follow up in 2 days to recheck 09/10/2015 Appointment: Barbara Brower [address] [place], [place] [id number] ACUTE ILLNESS 09/10/2015 Patient Education: Patient Medication [...] consider shingles vaccine 09/06/2015 Appointment: Barbara Brower [address] [place] [address] FOLLOW UP 09/06/2015 Patient Education: Patient Medication Summary Completed 09/06/2015 Care Plan: Referral Order SNOMED-CT : [id number] Pending 09/06/2015 Appointment: Najma Og WPtel: [address] [place] [address] LAB 08/31/2015 Patient Education: Patient Medication Summary Completed 08/31/2015 Visit Plan: Offered aggressive (KUB, IV fluids, Labs) vs. conservative (oral hydration, treat symptoms, watchful waiting). Elects for conservative + labs. CBC & CMP at [facility] Discussed needed oral hydration (preferably with sports drinks), 24 hour clear liquid followed by BRAT diet and advance as tolerated Discussed s/s of worsening, go to UC/ER. 06/29/2015 Appointment: Henrietta Lubin WPtel: [address] [place] [address] ACUTE ILLNESS 06/29/2015 Patient Education: Patient Medication Summary Completed 06/29/2015 Visit Plan: Lab discussed Will keep meds the same Discussed diet/exercise at length Cryotherapy as above to AKs of arms Flu and Prevnar 13 given Trial of revatio per patient request for ED--warned of no nitrates Recheck 4mos 01/17/2015 Appointment: Najma Og WPtel: [address] [place], [place] [phone] 01/16 confirmed~sl FOLLOW UP 01/17/2015 Patient Education: Patient Medication Summary Completed 01/17/2015 Appointment: Najma Og WPtel: [address] [place], [place] [id number] [place] LAB 01/12/2015 Patient Education: Patient Medication Summary Completed 01/12/2015 Visit Plan: Lab discussed Start accuchec ks daily Cryotherapy as above 09/19/2014 Appointment: Najma Og WPtel: [address] [place], [place] [phone] [place] 09/18 confirmed -mf FOLLOW UP 09/19/2014 Patient Education: Patient Medication Summary Completed 09/19/2014 Appointment: Najma Og WPtel: [address] [place], [place] [phone] [place] LAB 08/15/2014 Patient Education: Patient Medication Summary Completed 08/15/2014 Appointment: Najma Og WPtel: [address] [place], [place] [phone] AC[facility] ILLNESS 12/14/2013 Patient Education: Patient Medication Summary Completed 12/14/2013 Visit Plan: Patient using tylenol prn pa in Discussed possible shingles shot for booster in 9-12mos 10/17/2013 Appointment: Najma Og WPtel: [address] [place], [place] [phone] FOLLOW UP 10/17/2013 Patient Education: Patient Medication Summary Completed 10/17/2013 Appointment: Jeanie Briceño WPtel: [address] [place] [address] ACUTE ILLNESS 09/23/2013 Patient Education: Patient Medication Summary Completed 09/23/2013 Appointment: Najma Og WPtel: [address] [place], [place] [phone] BP CHECK 07/22/2013 Patient Education: Patient Medication Summary Completed 07/22/2013 Visit Plan: Lab discussed Discussed swit arun amlodopine to beta slim to see if helps with tremor BP check in 1mo 06/20/2013 Appointment: Najma Og WPtel: [address] [place], [place] [phone] 06/17 no answer FOLLOW UP 06/20/2013 Patient Education: Patient Medication Summary Completed 06/20/2013 Appointment: Najma Og WPtel: [address] [place], [place] [phone] LAB 06/08/2013 Patient Education: Patient Medication Summary Completed 06/08/2013 Visit Plan: BRAT diet and yogurt and gat orade Lab discussed Continue current meds Spot checks on BS 11/25/2012 Appointment: Najma Og WPtel: [address] [place] [phone] 11/24 vm FOLLOW UP 11/25/2012 Patient Education: Patient Medication Summary Completed 11/25/2012 Appointment: Najma Og WPtel: [address] [place] [phone] LAB 11/11/2012 Patient Education: Patient Medication Summary Completed 11/11/2012 Appointment: Henrietta Lubin WPtel: [address] [place], [place] [id number] WORK IN 08/27/2012 Patient Education: Patient Medication Summary Completed 08/27/2012 Visit Plan: Pt going to get new home BP moniter Continue crestor and restart fish oil and will check fasting lab in 6mos Lab results discussed 05/11/2012 Appointment: Najma Og WPtel: [address] [place] [phone] 05/10 FOLLOW UP 05/11/2012 Patient Education: Patient Medication Summary Completed 05/11/2012 Appointment: Najma Og WPtel: [address] [place] [id number] [place] LAB 05/04/2012 Patient Education: Patient Medication Summary Completed 05/04/2012 Visit Plan: 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 and forehead 03/02/2012 Appointment: Najma Og WPtel: [address] [place] [id number] 03/01 OFFICE SURGERY 03/02/2012 Patient Education: Patient Medication Summary Completed 03/02/2012 Visit Plan: Labs discussed--recheck lab end of Feb/mar Continue current meds and continue to moniter BS daily and BP 1-2 times a week Plan on cryotherapy this fall so can wear longsleeves after procedure See urology 12/11/2011 Appointment: Najma Og WPtel: [address] [place], [place] [phone] FOLLOW UP 12/11/2011 Patient Education: Patient Medication Summary Completed 12/11/2011 Appointment: Najma Og WPtel: [address] [place] [phone] LAB 10/29/2011 Patient Education: Patient Medication Summary Completed 10/29/2011 Appointment: Najma Og WPtel: [address] [place] [phone] BP CHECK 08/14/2011 Patient Education: Patient Medication Summary Completed 08/14/2011 Appointment: Najma Og WPtel: [address] [place], [place] [phone] AC[facility]LL[facility] 07/29/2011 Patient Education: Patient Medication Summary Completed 07/29/2011 Appointment: Najma Og WPtel: [address] [place] [phone] BP CHECK 07/23/2011 Patient Education: Patient Medication Summary Completed 07/23/2011 Appointment: Najma Og WPtel: [address] [place] [phone] BP CHECK 06/24/2011 Patient Education: Patient Medication Summary Completed 06/24/2011 Appointment: Najma Og WPtel: [address] [place] [phone] BP CHECK 05/20/2011 Patient Education: Patient Medication Summary Completed 05/20/2011 Appointment: Najma Og WPtel: [address] [place], [place] [phone] [place] BP CHECK 04/29/2011 Patient Education: Patient Medication Summary Completed 04/29/2011 Appointment: Najma Ogtel: [address] [place], [place] [phone] [place] BP CHECK 04/15/2011 Patient Education: Patient Medication Summary Completed 04/15/2011 Visit Plan: Continue current meds Add fi sh oil 1gm daily Glucometer given to use for accuchecks prn 03/18/2011 Appointment: Najma Og WPtel: [address] [place] [phone] [place] FOLLOW UP 03/18/2011 Patient Education: Patient Medication Summary Completed 03/18/2011 Appointment: Najma Og WPtel: [address] [place] [phone] [place] LAB 03/14/2011 Patient Education: Patient Medication Summary Completed 03/14/2011 Appointment: Najma Og WPtel: [address] [place] [phone] [place] LAB 11/11/2010 Appointment: Najma Og WPtel: [address] [place] [phone] [place] UA 11/11/2010 Patient Education: Patient Medication Summary Completed 11/11/2010 Appointment: Najma Og WPtel: [address] [place] [phone] [place] LAB 10/29/2010 Patient Education: Patient Medication Summary Completed 10/29/2010 Appointment: Najma Og WPtel: [address] [place] [phone] [place] FOLLOW UP 07/30/2010 Patient Education: Patient Medication Summary Completed 07/30/2010 Appointment: Najma Og WPtel: [address] [place] [phone] [place] LAB 07/23/2010 Patient Education: Patient Medication Summary Completed 07/23/2010 Appointment: Najma Og WPtel: [address] [place], [place] [phone] [place] LAB 04/26/2010 Patient Education: Patient Medication Summary Completed 04/26/2010 Visit Plan: Add PSA to lab Restart Crest or at 10mg daily Trial of Wellbutrin to aid in smoking cessation Check Lipids and LFTs in 3mos 04/24/2010 Appointment: Najma Og WPtel: [phone] [id number] [place] FOLLOW UP 04/24/2010 Patient Education: Patient Medication Summary Completed 04/24/2010 Appointment: Najma Og WPtel: [address] [facility] [place] LAB 04/19/2010 Patient Education: Patient Medication Summary Completed 04/19/2010 Referral: Donavon Keller WPtel: 1 [facility] [employer] [id number] [place] Referral Completed Instructions Comment . Lab [...] conservative + labs. CBC & CMP at [facility] Discussed needed oral hydration (preferably with [...] . Labs discussed--recheck lab end of Feb /mar Continue current meds and continue to moniter [...]
--- OUTSIDE RECORDS SUMMARY | 2019-10-14 22:29 | XMS REPORT | CCD ---
Author Author Inocente Og D.O. Organization [facility] Address [address] [place] [address] Phone Care Team Providers Care Spanish Professor Name Role Phone Najma Og D.O. PP Unavailable CCM Unavailable Summary Purpose Interface Exchange Insurance Providers Payer name Policy type / Coverage type Covered democrat ID Effective Begin Date Effective End Date [employer] MEDICARE Medicare Part B [id number] Unknown [facility] Medicare Part B [id number] Un known Family history Father Diagnosis Age At Onset Diabetes mellitus Type 2 Unknown Myocardial infarction Unknown Brother Diagnosis Age At Onset Diabetes mellitus Type 2 Unknown Mother Diagnosis Age At Onset Osteoarthritis Unknown Cerebrovascular disease Unknown Social History Social History Element Codes Description Effective Dates Tobacco history SNOMED CT: 035488888 Never smoker 12/21/2014 Marital status Unknown 07/30/2010 [...] Start Date Stop Date Status Fill Instructions metformin ER 500 mg tablet,extended release 24 hr RxNorm: 86 0975 TAKE 1 TABLET BY MOUTH ONCE DAILY 09/08/2019 12/06/2019 Active escitalopram 10 mg tablet RxNorm: 152082 1 Tablet(s) Oral QD 201911/28/2019 Active fenofibrate micronized 134 mg capsule RxNorm: 614338 TA KE 1 CAPSULE BY MOUTH ONCE DAILY FOR TRIGLYCERIDES 07/08/2019 10/05/2019 Active amlodipine 5 mg tablet RxNorm: 243547 TAKE 1 TABLET BY MOUTH ON CE DAILY 06/16/2019 09/13/2019 Active propranolol ER 80 mg capsule,24 hr,extended release RxNorm: 783599 TAKE 1 CAPSULE BY MOUTH ONCE DAILY 06/10/2019 09/07/2019 Inactive metformin ER 500 mg tablet,extended release 24 hr RxNorm: 86 0975 TAKE 1 TABLET BY MOUTH ONCE DAILY 06/10/2019 09/07/2019 Inactive Vitamin D3 25 mcg (1,000 unit) capsule RxNorm: 092098 1 Capsule(s) Oral two times a day 06/02/2019 No Stop Date Active turmeric 400 mg capsule RxNorm: 1 Capsule(s) Oral QD 06/02/2019 No Stop Date Active Fish Oil 120 mg-180 mg-500 mg capsule RxNorm: 2 Capsule(s) Ora l QD 06/02/2019 No Stop Date Active 16.2 mg-0.1037 mg-0.0194 mg tablet RxNorm: 7886545 1 Tablet(s) Oral four times a day as needed abdominal pain/diarrhea 06/02/2019 No Stop D ate Active fenofibrate micronized 134 mg capsule RxNorm: 794861 1 Capsule(s) Oral QD for triglycerides 04/14/2019 07/07/2019 Inactive amlodipine 5 mg tablet RxNorm: 392876 TAKE 1 TABLET BY MOUTH ON CE DAILY 03/22/2019 06/15/2019 Inactive metformin ER 500 mg tablet,extended release 24 hr RxNorm: 86 0975 TAKE 1 TABLET BY MOUTH ONCE DAILY 03/15/2019 06/09/2019 Inactive propranolol ER 80 mg capsule,24 hr,extended release RxNorm: 904049 TAKE 1 CAPSULE BY MOUTH ONCE DAILY 03/15/2019 06/09/2019 Inactive amlodipine 5 mg tablet RxNorm: 448352 1 Tablet(s) PO QD 12/27/2018 Inactive fenofibrate micronized 134 mg capsule RxNorm: 786720 TA KE 1 CAPSULE BY MOUTH ONCE DAILY FOR TRIGLYCERIDES 10/11/2018 04/13/2019 Inactive amlodipine 5 mg tablet RxNorm: 785272 1 Tablet(s) PO QD 09/30/2018 Inactive metformin ER 500 mg tablet,extended release 24 hr RxNorm: 86 0975 TAKE 1 TABLET BY MOUTH ONCE DAILY 09/21/2018 03/14/2019 Inactive propranolol ER 80 mg capsule,24 hr,extended release RxNorm: 325104 TAKE 1 CAPSULE BY MOUTH ONCE DAILY 09/21/2018 03/14/2019 Inactive amlodipine 5 mg tablet RxNorm: 500270 1 Tablet(s) PO QD 08/25/2018 Inactive amlodipine 5 mg tablet RxNorm: 481569 1 Tablet(s) PO QD 08/25/2018 Inactive lisinopril 40 mg tablet RxNorm: 871194 TAKE 1 TABLET BY MOUTH O NCE DAILY 07/21/2018 08/24/2018 Inactive fenofibrate micronized 134 mg capsule RxNorm: 554002 TA KE 1 CAPSULE BY MOUTH ONCE DAILY FOR TRIGLYCERIDES 07/12/2018 10/10/2018 Inactive propranolol ER 80 mg capsule,24 hr,extended release RxNorm: 027360 TAKE 1 CAPSULE BY MOUTH ONCE DAILY 06/21/2018 09/20/2018 Inactive lisinopril 40 mg tablet RxNorm: 157208 TAKE 1 TABLET BY MOUTH O NCE DAILY 04/26/2018 07/20/2018 Inactive metformin ER 500 mg tablet,extended release 24 hr RxNorm: 901516 1 Tablet(s) QD 03/31/2018 09/20/2018 Inactive lisinopril 40 mg tablet RxNorm: 532594 TAKE 1 TABLET BY MOUTH O NCE DAILY 01/28/2018 04/25/2018 Inactive Vitamin D3 5,000 unit tablet RxNorm: 507772 1 Tablet(s) PO QD 01/1908/18/2018 Inactive fenofibrate micronized 134 mg capsule RxNorm: 317729 1 Capsule(s) PO QD for triglycerides 01/19/2018 07/11/2018 Inactive metformin ER 500 mg tablet,extended release 24 hr RxNorm: 976535 1 Tablet(s) QD 12/31/2017 03/30/2018 Inactive metformin ER 500 mg tablet,extended release 24 hr RxNorm: 649083 Tablet(s) 12/30/2017 12/30/2017 Inactive propranolol ER 80 mg capsule,24 hr,extended release RxNorm: 724746 1 Capsule(s) PO QD 12/17/2017 06/14/2018 Inactive metformin ER 500 mg tablet,extended release 24 hr RxNorm: 86 0975 1 Tablet(s) PO QD DUE FOR LABS AND APPT 12/02/2017 12/30/2017 Inactive Crestor 10 mg tablet RxNorm: 658994 TAKE ONE TABLET BY MOUTH ON CE DAILY 11/01/2017 01/18/2018 Inactive lisinopril 40 mg tablet RxNorm: 333916 TAKE ONE TABLET BY MOUTH ONCE DAILY [...] ER 80 mg capsule,24 hr,extended release RxNorm: 066635 1 Capsule(s) PO QD DUE FOR APPT 09/08/2017 12/17/2017 Inactive Crestor 10 mg tablet RxNorm: 962504 1 Tablet(s) PO QD T CHELSI ONE TABLET BY MOUTH DAILY 03/11/2017 09/06/2017 Inactive propranolol ER 80 mg capsule,24 hr,extended release RxNorm: 184372 1 Capsule(s) PO QD TAKE ONE CAPSULE BY MOUTH DAILY - REPLACES AMLODOPINE 03/11/2017 09/08/2017 Inactive metformin ER 500 mg tablet,extended release 24 hr RxNorm: 86 0975 1 Tablet(s) PO QD 03/11/2017 09/08/2017 Inactive lisinopril 40 mg tablet RxNorm: 977766 1 Tablet(s) PO QD 03/11/2017 0 09/06/2017 Inactive lisinopril 40 mg tablet RxNorm: 593588 1 Tablet(s) PO QD 02/16/2017 1 05/11/2016 Inactive metformin ER 500 mg tablet,extended release 24 hr RxNorm: 86 0975 1 Tablet(s) PO QD Due for labs and follow up before further refills 02/16/2017 017 Inactive propranolol ER 80 mg capsule,24 hr,extended release RxNorm: 777100 Capsule(s) TAKE ONE CAPSULE BY MOUTH DAILY - REPLACES AMLODOPINE 11/19/20162016 Inactive lisinopril 40 mg tablet RxNorm: 530803 1 Tablet(s) PO QD 11/17/2016 1 04/18/2016 Inactive metformin ER 500 mg tablet,extended release 24 hr RxNorm: 86 0975 1 Tablet(s) PO QD 11/17/2016 02/16/2017 Inactive lisinopril 40 mg tablet RxNorm: 337950 1 Tablet(s) PO Q D TAKE ONE TABLET BY MOUTH DAILY 08/19/2016 11/17/2016 Inactive metformin ER 500 mg tablet,extended release 24 hr RxNorm: 86 0975 Tablet(s) TAKE ONE TABLET BY MOUTH DAILY 08/19/2016 11/16/2016 Inactive propranolol ER 80 mg capsule,24 hr,extended release RxNorm: 505624 Capsule(s) TAKE ONE CAPSULE BY MOUTH DAILY - REPLACES AMLODOPINE 08/19/20162016 Inactive Crestor 10 mg tablet RxNorm: 812450 TAKE ONE TABLET BY MOUTH DAILY 06/16/2016 03/10/2017 Inactive lisinopril 40 mg tablet RxNorm: 513716 1 Tablet(s) PO Q D TAKE ONE TABLET BY MOUTH DAILY 05/23/2016 08/18/2016 Inactive metformin ER 500 mg tablet,extended release 24 hr RxNorm: 86 0975 TAKE ONE TABLET BY MOUTH DAILY 05/23/2016 08/19/2016 Inactive propranolol ER 80 mg capsule,24 hr,extended release RxNorm: 901647 TAKE ONE CAPSULE BY MOUTH DAILY - REPLACES AMLODOPINE 05/23/2016 08/19/2016 [place] [facility] Crestor 10 mg tablet RxNorm: 068230 TAKE ONE TABLET BY MOUTH DAILY 03/31/2016 06/15/2016 Inactive metformin ER 500 mg tablet,extended release 24 hr RxNorm: 86 0975 TAKE ONE TABLET BY MOUTH DAILY 02/19/2016 05/22/2016 Inactive propranolol ER 80 mg capsule,24 hr,extended release RxNorm: 519655 TAKE ONE CAPSULE BY MOUTH DAILY - REPLACES AMLODOPINE 11/23/2015 05/20/2016 [place] [facility] metformin ER 500 mg tablet,extended release 24 hr RxNorm: 86 0975 TAKE ONE TABLET BY MOUTH DAILY 11/08/2015 02/05/2016 Inactive Bactroban Nasal 2 % ointment RxNorm: 484053 Apply topic ally to affected area twice daily 09/10/2015 03/09/2016 Inactive Vibramycin 100 mg capsule RxNorm: 419563 1 Capsule(s) PO BID 201509/23/2015 Inactive lisinopril 40 mg tablet RxNorm: 203645 1 Tablet(s) PO Q D TAKE ONE TABLET BY MOUTH DAILY 08/27/2015 02/22/2016 Inactive metformin ER 500 mg tablet,extended release 24 hr RxNorm: 86 0975 TAKE ONE TABLET BY MOUTH DAILY 08/06/2015 11/03/2015 Inactive Levsin/SL 0.125 mg sublingual tablet RxNorm: 6258421 1 T ablet(s) SL Q4H as needed for stomach cramps 06/29/2015 07/03/2015 Inactive lisinopril 40 mg tablet RxNorm: 040561 Tablet(s) TAKE ONE TABLE T BY MOUTH DAILY 06/07/2015 08/26/2015 Inactive propranolol ER 80 mg capsule,24 hr,extended release RxNorm: 301654 TAKE ONE CAPSULE BY MOUTH DAILY - REPLACES AMLODOPINE 05/30/2015 11/22/2015 [place] [facility] metformin ER 500 mg tablet,extended release 24 hr RxNorm: 86 0975 1 Tablet(s) PO QD 05/10/2015 08/05/2015 Inactive Crestor 10 mg tablet RxNorm: 917262 TAKE ONE TABLET BY MOUTH DAILY 04/18/2015 10/14/2015 Inactive metformin ER 500 mg tablet,extended release 24 hr RxNorm: 86 0975 TAKE ONE TABLET BY MOUTH DAILY 02/07/2015 05/10/2015 Inactive sildenafil 20 mg tablet RxNorm: 912408 1 Tablet(s) PO QD 01/17/2015 1 04/17/2014 Inactive propranolol ER 80 mg capsule,24 hr,extended release RxNorm: 146092 1 Capsule(s) PO QD replaces amlodopine 11/28/2014 05/26/2015 Inactive [[facility] -- BIN:[id number], PCN: [id number], Group: [id number], ID# [id number], Process claim through [employer], for questions: . THIS IS NOT INSURANCE.] lisinopril 40 mg tablet RxNorm: 007526 TAKE ONE TABLET BY MOUTH DAILY 11/16/2014 06/07/2015 Inactive lisinopril 40 mg tablet RxNorm: 640975 1 Tablet(s) PO QD 08/21/2014 0 11/15/2014 Inactive [AttnRPh: Saving apply/adjudicate RxGRP: [id number] RxBIN:[id number] RxPCN: ID#:[id number]] lisinopril 40 mg tablet RxNorm: 117434 1 Tablet(s) PO Q D NEEDS SEEN FOR APPOINTMENT 07/14/2014 08/21/2014 Inactive [AttnRPh: Saving apply/adjudicate RxGRP:SG20 RxBIN:[id number] RxPCN: ID#:[id number]] Crestor 10 mg tablet RxNorm: 029507 TAKE ONE TABLET BY MOUTH 07/06/2014 01/01/2015 Inactive metformin ER 500 mg tablet,extended release 24 hr RxNorm: 86 0975 1 Tablet(s) QD TAKE ONE TABLET BY MOUTH ONCE A DAY 06/09/2014 12/05/2014 Inactive propranolol ER 80 mg capsule,24 hr,extended release RxNorm: 766737 1 Capsule(s) PO QD replaces amlodopine 06/05/2014 11/28/2014 Inactive [[facility] UNINSURED PATIENTS -- BIN:[id number], PCN: [id number], Group: [id number], ID# [id number], Process claim through [employer], for questions: . THIS IS NOT INSURANCE.] propranolol ER 80 mg capsule,24 hr,extended release RxNorm: 208827 1 Capsule(s) PO QD replaces amlodopine 03/07/2014 06/05/2014 Inactive [[facility] UNINSURED PATIENTS -- BIN:[id number], PCN: [id number], Group: [id number], ID# [id number], Process claim through [employer], for questions: . THIS IS NOT INSURANCE.] metformin ER 500 mg tablet,extended release 24 hr RxNorm: 86 0975 TAKE ONE TABLET BY MOUTH ONCE A DAY 12/15/2013 06/09/2014 Inactive propranolol ER 80 mg capsule,24 hr,extended release RxNorm: 423107 1 Capsule(s) PO QD replaces amlodopine 12/09/2013 03/07/2014 Inactive [[facility] UNINSURED PATIENTS -- BIN:805661, PCN: [id number], Group: [id number], ID# [id number], Process claim through [employer], for questions: . THIS IS NOT INSURANCE.] acyclovir 800 mg tablet RxNorm: 261855 1 Tablet(s) PO QID 09/23/2013 09/29/2013 Inactive gabapentin 300 mg capsule RxNorm: 422484 1 Capsule(s) PO BID 201310/07/2013 Inactive metformin ER 500 mg tablet,extended release 24 hr RxNorm: 86 0975 1 Tablet(s) PO QD 09/19/2013 12/14/2013 Inactive propranolol ER 80 mg capsule,24 hr,extended release RxNorm: 479580 1 Capsule(s) PO QD replaces amlodopine 09/15/2013 12/09/2013 Inactive metformin ER 500 mg 24 hr tablet,extended release RxNorm: 86 0975 1 Tablet(s) PO QD 09/15/2013 09/18/2013 Inactive lisinopril 40 mg tablet RxNorm: 043861 1 Tablet(s) PO QD 07/19/2013 0 07/14/2014 Inactive Crestor 10 mg tablet RxNorm: 812281 Tablet(s) PO TAKE O NE TABLET BY MOUTH EVERY DAY 07/12/2013 07/05/2014 Inactive propranolol ER 80 mg capsule,24 hr,extended release RxNorm: 981273 1 Capsule(s) PO QD replaces amlodopine 06/20/2013 09/15/2013 Inactive triamcinolone acetonide 0.1 % topical ointment RxNorm: 00028 36 Application TOP BID 06/20/2013 06/26/2013 Inactive Crestor 10 mg tablet RxNorm: 735681 1 Tablet(s) PO QD 04/18/201310/2013 Inactive Viagra 100 mg tablet RxNorm: 623787 1 Tablet(s) PO as directed 01/0508/18/2018 Inactive TAKE ONE TABLET BY MOUTH DIRECTED Crestor 10 mg tablet RxNorm: 149671 1 Tablet(s) PO QD 01/17/201304/06 Inactive metformin ER 500 mg tablet,extended release 24 hr RxNorm: 86 0975 1 Tablet(s) PO QD TAKE ONE TABLET BY MOUTH EVERY DAY 12/23/2012 09/15/2013 Inactive triamcinolone acetonide 0.1 % topical ointment RxNorm: 80904 36 Application TOP BID 08/27/2012 09/02/2012 Inactive ketoconazole 2 % topical cream RxNorm: 060086 1 Application TOP QAM 08/27/2012 09/02/2012 Inactive lisinopril 40 mg tablet RxNorm: 049089 1 Tablet(s) PO QD 07/21/2012 0 07/15/2013 Inactive Crestor 10 mg tablet RxNorm: 951820 1 Tablet(s) PO QD 07/21/201210/04 Inactive amlodipine 10 mg tablet RxNorm: 520130 1 Tablet(s) PO QHS 07/21/2012 07/15/2013 Inactive metformin ER 500 mg tablet,extended release 24 hr RxNorm: 86 0977 Tablet(s) PO TAKE ONE TABLET BY MOUTH EVERY DAY 03/31/2012 12/22/2012 Inactive lisinopril 40 mg tablet RxNorm: 535635 1 Tablet(s) PO QD 07/29/2011 0 07/20/2012 Inactive amlodipine 10 mg tablet RxNorm: 780479 1 Tablet(s) PO QHS 07/29/2011 07/20/2012 Inactive amlodipine 10 mg Tab RxNorm: 409676 1 Tablet(s) PO QHS 07/29/2011 Inactive Viagra 100 mg tablet RxNorm: 835200 1 Tablet(s) PO as directed 07/0601/24/2013 Inactive TAKE ONE TABLET BY MOUTH DIRECTED Crestor 10 mg tablet RxNorm: 360267 1 Tablet(s) PO QD 07/29/201107/05 Inactive Norvasc 5 mg Tab RxNorm: 835177 1 Tablet(s) PO QD 07/16/2011 07/28/19 12 Inactive Norvasc 5 mg Tab RxNorm: 295447 1 Tablet(s) PO QD 06/26/2011 07/15/19 12 Inactive lisinopril 40 mg Tab RxNorm: 178674 1 Tablet(s) PO QD 05/13/201107/06 Inactive metformin ER 500 mg tablet,extended release 24 hr RxNorm: 86 0977 1 Tablet(s) PO QD 03/18/2011 07/28/2011 Inactive Crestor 10 mg Tab RxNorm: 373675 1 Tablet(s) PO QHS 01/27/20112011 Inactive metformin ER 500 mg 24 hr Tab RxNorm: 714703 1 Tablet(s) PO QD 11/0403/17/2011 Inactive Viagra 100 mg Tab RxNorm: 611841 Tablet(s) PO TAKE ON E TABLET BY MOUTH DIRECTED 08/26/2010 07/28/2011 Inactive metformin ER 500 mg 24 hr Tab RxNorm: 680127 1 Tablet(s) PO QD 07/0611/18/2010 Inactive Crestor 10 mg Tab RxNorm: 504558 1 Tablet(s) PO QHS 07/30/20102010 Inactive Crestor 10 mg Tab RxNorm: 878920 1 Tablet(s) PO QHS 05/20/20102010 Inactive Wellbutrin SR 150 mg Tab RxNorm: 174905 1 Tablet(s) PO QAM 04/24/19 11 07/22/2010 Inactive Multivitamin And Mineral tablet RxNorm: 1 Tablet(s) PO QD No Start Date Active FreeStyle Lite Strips RxNorm: 1 Unit Dose Miscel laneous AC & HS check blood sugar AC and HS No Start Date Active Co Q-10 200 mg capsule RxNorm: 555991 1 Capsule(s) PO QD No Start Date Active lancets RxNorm: 1 Milliliter(s) Miscellaneous AC & HS No Start Robert e Active Vitamin D3 4,000 unit capsule RxNorm: 2992275 1 Capsule(s) PO QD No Start Date 07/08/2016 Inactive Fish Oil 360 mg-1,200 mg capsule RxNorm: 778147 2 Capsule(s) PO QD No Start Date 01/30/2019 Inactive hydrocodone 5 mg-acetaminophen 325 mg tablet RxNorm: 015820 1 Tablet(s) PO Q4H as needed for severe pain No Start Date 12/30/2015 Inactive Xanax 0.25 mg tablet RxNorm: 933855 1/2 Tablet(s) PO PRN for se andrea stress No Start Date 07/08/2016 Inactive lisinopril 40 mg Tab RxNorm: 259543 1 Tablet(s) PO QD No Start Date 0 05/12/2011 Inactive Fish Oil 1,000 mg capsule RxNorm: 1 Capsule(s) PO QD No Start Date 09/18/2014 Inactive naproxen 500 mg Tab RxNorm: 338183 1 Tablet(s) PO BID No Start Date 0 07/28/2011 Inactive aspirin 81 mg tablet RxNorm: 063732 1 Tablet(s) PO QD No Start Date 0 05/09/2018 Inactive Crestor 10 mg Tab RxNorm: 855889 1 Tablet(s) PO QD No Start Date 07/06 Inactive Crestor 5 mg tablet RxNorm: 069053 1 Tablet(s) PO QD No Start Date Inactive Fish Oil Oral RxNorm: Oral No Start Date 09/18/2014 Inactive Viagra 100 mg Tab RxNorm: 914571 1 Tablet(s) PO as directed No Star [...] Code Item Item Code Result Date S vice Location GLYCOSYLATED HEMOGLOBIN TEST 76550 Hgb A1c 53061-0 6.6 % 0 08/24/2019 Unknown MEAN GLUC 9658187 Calc Mean Gluc 143 mg/dL 08/24/2019 Unkn own COMPREHENSIVE METABOLIC 55785 AST 24 U/L 2019 Unknown COMPREHENSIVE METABOLIC 19291 ALT 32 U/L 2019 Unknown COMPREHENSIVE METABOLIC 16177 BUN 14 mg/dL 2019 Unknown COMPREHENSIVE METABOLIC 82043 ALBUMIN 4.7 g/dL 2019 Unknown COMPREHENSIVE METABOLIC 66044 CHLORIDE 103 mmol/L 08/23 Unknown COMPREHENSIVE METABOLIC 39131 Bili Total 0.5 mg/dL 08/23 Unknown COMPREHENSIVE METABOLIC 37570 ALK PHOS 57 U/L 2019 Unknown COMPREHENSIVE METABOLIC 98471 SODIUM 140 mmol/L 08/23 Unknown COMPREHENSIVE METABOLIC 91810 CREATININE 1.20 mg/dL 08/05 Unknown COMPREHENSIVE METABOLIC 33091 CALCIUM 9.9 mg/dL 2019 Unknown COMPREHENSIVE METABOLIC 43465 POTASSIUM 4.4 mmol/L 08/23 Unknown COMPREHENSIVE METABOLIC 85865 Total Protein 6.9 g/dL Unknown COMPREHENSIVE METABOLIC 83034 Glucose 123 mg/dL 2019 Unknown COMPREHENSIVE METABOLIC 63438 Bicarbonate 25 mmol/L 08/05 Unknown COMPREHENSIVE METABOLIC 62576 AGAP 12 mmol/L 2019 Unknown GFR CALC 9648536 GFR Non Afr Amr 60 mL/min 08/24/2019 Unk nown GFR CALC [id number] GFR Afr Amr >60 mL/min 08/24/2019 Unknow n GLYCOSYLATED HEMOGLOBIN TEST 86276 Hgb A1c 36201-7 6.7 % 0 05/24/2019 Unknown COMPREHENSIVE METABOLIC 16341 AST 21 U/L 2019 Unknown COMPREHENSIVE METABOLIC 86815 ALT 26 U/L 2019 Unknown COMPREHENSIVE METABOLIC 71858 BUN 14 mg/dL 2019 Unknown COMPREHENSIVE METABOLIC 24668 ALBUMIN 4.4 g/dL 2019 Unknown COMPREHENSIVE METABOLIC 18258 CHLORIDE 102 mmol/L 05/24 Unknown COMPREHENSIVE METABOLIC 13706 Bili Total 0.4 mg/dL 05/24 Unknown COMPREHENSIVE METABOLIC 69812 ALK PHOS 55 U/L 2019 Unknown COMPREHENSIVE METABOLIC 53732 SODIUM 139 mmol/L 05/24 Unknown COMPREHENSIVE METABOLIC 66258 CREATININE 1.28 mg/dL 05/07 Unknown COMPREHENSIVE METABOLIC 65028 CALCIUM 9.7 mg/dL 2019 Unknown COMPREHENSIVE METABOLIC 31846 POTASSIUM 4.7 mmol/L 05/24 Unknown COMPREHENSIVE METABOLIC 80096 Total Protein 6.8 g/dL Unknown COMPREHENSIVE METABOLIC 18730 Glucose 130 mg/dL 2019 Unknown COMPREHENSIVE METABOLIC 75274 Bicarbonate 29 mmol/L 05/07 Unknown COMPREHENSIVE METABOLIC 61056 AGAP 8 mmol/L 2019 Unknown MEAN GLUC 9905576 Calc Mean Gluc 146 mg/dL 05/24/2019 Unkn own GFR CALC 9091318 GFR Non Afr Amr 56 mL/min 05/24/2019 Unk nown GFR CALC 8070751 GFR Afr Amr >60 mL/min 05/24/2019 Unknow n MEAN GLUC Calc Mean Gluc 140 mg/dL 01/26/2019 Unkn own GLYCOSYLATED HEMOGLOBIN TEST 48362 Hgb A1c 65587-0 6.5 % 1 Unknown COMPREHENSIVE METABOLIC 50934 AST 17 U/L 2018 Unknown COMPREHENSIVE METABOLIC 67640 ALT 19 U/L 2018 Unknown COMPREHENSIVE METABOLIC 99796 BUN 19 mg/dL 2018 Unknown COMPREHENSIVE METABOLIC 21048 ALBUMIN 4.3 g/dL 2018 Unknown COMPREHENSIVE METABOLIC 51548 CHLORIDE 103 mmol/L 01/26 Unknown COMPREHENSIVE METABOLIC 45181 Bili Total 0.6 mg/dL 01/26 Unknown COMPREHENSIVE METABOLIC 23340 ALK PHOS 60 U/L 2018 Unknown COMPREHENSIVE METABOLIC 98149 SODIUM 140 mmol/L 01/26 Unknown COMPREHENSIVE METABOLIC 46786 CREATININE 1.21 mg/dL 01/05 Unknown COMPREHENSIVE METABOLIC 59237 CALCIUM 9.6 mg/dL 2018 Unknown COMPREHENSIVE METABOLIC 53852 POTASSIUM 4.5 mmol/L 01/26 Unknown COMPREHENSIVE METABOLIC 68876 Total Protein 6.7 g/dL Unknown COMPREHENSIVE METABOLIC 94050 Glucose 111 mg/dL 2018 Unknown COMPREHENSIVE METABOLIC 39669 Bicarbonate 28 mmol/L 01/05 Unknown COMPREHENSIVE METABOLIC 67067 AGAP 9 mmol/L 2018 Unknown COMPLETE BLOOD COUNT 6067666 WBC 10.7 10e9/L 019 Unknown COMPLETE BLOOD COUNT 7232734 RBC 4.38 10e12/L 2018 Unknown COMPLETE BLOOD COUNT 5339674 HEMOGLOBIN 13.7 g/dL 01/27/20 19 Unknown COMPLETE BLOOD COUNT 1366011 HEMATOCRIT 42.0 % 01/27/20 19 Unknown COMPLETE BLOOD COUNT 3493939 MCV 95.9 fL 9 Unknown COMPLETE BLOOD COUNT 4693690 MCH 31.3 pg 9 Unknown COMPLETE BLOOD COUNT 6473489 MCHC 32.6 g/dL 9 Unknown COMPLETE BLOOD COUNT 2443449 PLATELET COUNT 232 10e9/L Unknown COMPLETE BLOOD COUNT 6015228 Mean Plt Volume 11.4 fL Unknown COMPLETE BLOOD COUNT 3751272 Neut Auto 68.7 % 9 Unknown COMPLETE BLOOD COUNT 8270721 Lymph Auto 21.2 % 01/27/20 19 Unknown COMPLETE BLOOD COUNT 5438055 [place] Auto 8.1 % 9 Unknown COMPLETE BLOOD COUNT 7215593 RDW 14.1 % 9 Unknown COMPLETE BLOOD COUNT 4047844 Eos Auto 1.8 % 9 Unknown COMPLETE BLOOD COUNT 5593370 Baso Auto 0.2 % 9 Unknown COMPLETE BLOOD COUNT 2378334 Neutrophil Abs 7.35 10e9/L Unknown COMPLETE BLOOD COUNT 5253335 Lymphocyte Abs 2.27 10e9/L Unknown COMPLETE BLOOD COUNT 1795670 Monocyte Abs 0.87 10e9/L 01/05 Unknown COMPLETE BLOOD COUNT 5876416 Eosinophil Abs 0.19 10e9/L Unknown COMPLETE BLOOD COUNT 1019619 RDW-SD 47.7 fL 9 Unknown COMPLETE BLOOD COUNT [id number] Basophil Abs 0.02 10e9/L 01/05 Unknown GFR CALC 2798748 GFR Afr Amr >60 mL/min 01/26/2019 Unknow n GFR CALC [id number] GFR Non Afr Amr 59 mL/min 01/26/2019 Unk nown LIPID GROUP 52308 Cholesterol 215 mg/dL 01/26/2019 Unkno wn LIPID GROUP 82098 Triglyceride 221 mg/dL 01/26/2019 Unkn own LIPID GROUP 73495 HDL CHOLESTEROL 41 mg/dL 01/26/2019 U nknown LIPID GROUP 39713 Chol/HDL Ratio 5.24 ratio 01/26/2019 U nknown LIPID GROUP 81745 NON-HDL Chol 174 mg/dL 01/26/2019 Unkn own LIPID GROUP 23875 LDL Cholesterol 130 mg/dL 01/26/2019 [place] [address] Glucose 104 mg/dL 09/30 [place] [address] CREATININE 1.18 mg/dL [place] [address] BUN 19 mg/dL 09/30 [place] [address] SODIUM 139 mmol/L 09/05 [place] [address] POTASSIUM 4.1 mmol/L 09/05 [place] [address] CHLORIDE 105 mmol/L 09/05 [place] [address] Bicarbonate 26 mmol/L [place] [address] AGAP 8 mmol/L 09/30 [place] [address] CALCIUM 9.3 mg/dL 09/30 Unknown GFR CALC 7035672 GFR Non Afr Amr >60 mL/min 09/30/2018 Un known GFR CALC 8707357 GFR Afr Amr >60 mL/min 09/30/2018 Unknow n MICROALBUMIN URINE RANDOM 64613 U Microalbumin <2.0 mg/L 08/19/2018 Unknown MICROALBUMIN URINE RANDOM 43277 U Creatinine 66 mg/dL 0 08/19/2018 Unknown MICROALBUMIN URINE RANDOM 70257 ALB/CR Ratio <3.0 mg/gCR 08/19/2018 Unknown COMPREHENSIVE METABOLIC 36529 AST 21 U/L 2018 Unknown COMPREHENSIVE METABOLIC 14253 ALT 20 U/L 2018 Unknown COMPREHENSIVE METABOLIC 15269 BUN 31 mg/dL 2018 Unknown COMPREHENSIVE METABOLIC 94618 ALBUMIN 4.4 g/dL 2018 Unknown COMPREHENSIVE METABOLIC 22910 CHLORIDE 105 mmol/L 08/16 Unknown COMPREHENSIVE METABOLIC 88914 Bili Total 0.5 mg/dL 08/16 Unknown COMPREHENSIVE METABOLIC 03716 ALK PHOS 40 U/L 2018 Unknown COMPREHENSIVE METABOLIC 67457 SODIUM 140 mmol/L 08/16 Unknown COMPREHENSIVE METABOLIC 49606 CREATININE 1.45 mg/dL 08/04 Unknown COMPREHENSIVE METABOLIC 12258 CALCIUM 9.8 mg/dL 2018 Unknown COMPREHENSIVE METABOLIC 01139 POTASSIUM 5.1 mmol/L 08/16 Unknown COMPREHENSIVE METABOLIC 14388 Total Protein 6.9 g/dL Unknown COMPREHENSIVE METABOLIC 95164 Glucose 110 mg/dL 2018 Unknown COMPREHENSIVE METABOLIC 33596 Bicarbonate 25 mmol/L 08/04 Unknown COMPREHENSIVE METABOLIC 21541 AGAP 10 mmol/L 2018 Unknown GFR CALC 4666624 GFR Afr Amr 58 mL/min 08/16/2018 Unknown GFR CALC 1012964 GFR Non Afr Amr 48 mL/min 08/16/2018 Unk nown GLYCOSYLATED HEMOGLOBIN TEST 44972 Hgb A1c 18407-2 5.9 % 0 08/16/2018 Unknown LIPID GROUP 43953 Cholesterol 226 mg/dL 08/16/2018 Unkno wn LIPID GROUP 42721 Triglyceride 335 mg/dL 08/16/2018 Unkn own LIPID GROUP 41121 HDL CHOLESTEROL 32 mg/dL 08/16/2018 U nknown LIPID GROUP 88981 Chol/HDL Ratio 7.06 ratio 08/16/2018 U nknown LIPID GROUP 23575 NON-HDL Chol 194 mg/dL 08/16/2018 Unkn own LIPID GROUP 31850 LDL Cholesterol 127 mg/dL 08/16/2018 U nknown THYROID STIMULATING HORMONE 86792 TSH 2.475 uIU/mL 08/16/2018 Unknown COMPLETE BLOOD COUNT [id number] WBC 7.5 10e9/L 08/17/19 19 Unknown COMPLETE BLOOD COUNT [id number] RBC 4.09 10e12/L 2018 Unknown COMPLETE BLOOD COUNT [id number] HEMOGLOBIN 12.9 g/dL 08/17/19 19 Unknown COMPLETE BLOOD COUNT [id number] HEMATOCRIT 40.0 % 08/17/19 19 Unknown COMPLETE BLOOD COUNT 1243176 MCV 97.8 fL 9 Unknown COMPLETE BLOOD COUNT [id number] MCH 31.5 pg 9 Unknown COMPLETE BLOOD COUNT [id number] MCHC 32.3 g/dL 9 Unknown COMPLETE BLOOD COUNT [id number] PLATELET COUNT 258 10e9/L Unknown COMPLETE BLOOD COUNT [id number] Mean Plt Volume 11.4 fL Unknown COMPLETE BLOOD COUNT [id number] Neut Auto 62.9 % 9 Unknown COMPLETE BLOOD COUNT [id number] Lymph Auto 27.3 % 08/17/19 19 Unknown COMPLETE BLOOD COUNT [id number] [place] Auto 8.2 % 9 Unknown COMPLETE BLOOD COUNT 5300321 Eos Auto 1.5 % 9 Unknown COMPLETE BLOOD COUNT [id number] RDW 13.3 % 9 Unknown COMPLETE BLOOD COUNT 1310068 Baso Auto 0.1 % 9 Unknown COMPLETE BLOOD COUNT [id number] Neutrophil Abs 4.72 10e9/L Unknown COMPLETE BLOOD COUNT [id number] Lymphocyte Abs 2.05 10e9/L Unknown COMPLETE BLOOD COUNT [id number] Monocyte Abs 0.62 10e9/L 08/04 Unknown COMPLETE BLOOD COUNT [id number] Eosinophil Abs 0.11 10e9/L Unknown COMPLETE BLOOD COUNT [id number] RDW-SD 46.7 fL 9 Unknown COMPLETE BLOOD COUNT [id number] Basophil Abs 0.01 10e9/L 08/04 Unknown MEAN GLUC [id number] Calc Mean Gluc 123 mg/dL 08/16/2018 Unkn own L[facility] 88706 Cholesterol 212 mg/dL 05/05/2018 [facility] wn [facility] 11817 Triglyceride 271 mg/dL 05/05/2018 [facility]kn own [facility] 40750 HDL CHOLESTEROL 38 mg/dL 05/05/2018 U nknown L[facility] GROUP 98134 Chol/HDL Ratio 5.58 ratio 05/05/2018 U nknown L[facility] GROUP 73521 NON-HDL Chol 174 mg/dL 05/05/2018 Unkn own [facility] 70502 LDL Cholesterol 120 mg/dL 05/05/2018 U nknown GFR CALC 5335272 GFR Non Afr Amr 49 mL/min 05/05/2018 Unk nown GFR CALC 9402019 GFR Afr Amr 59 mL/min 05/05/2018 Unknown GLYCOSYLATED HEMOGLOBIN TEST 93045 Hgb A1c 70704-9 6.0 % 0 05/05/2018 Unknown MEAN GLUC 2474994 Calc Mean Gluc 126 mg/dL 05/05/2018 Unkn own COMPREHENSIVE METABOLIC 80763 AST 18 U/L 2018 Unknown COMPREHENSIVE METABOLIC 77667 ALT 23 U/L 2018 Unknown COMPREHENSIVE METABOLIC 70725 BUN 30 mg/dL 2018 Unknown COMPREHENSIVE METABOLIC 66001 ALBUMIN 4.3 g/dL 2018 Unknown COMPREHENSIVE METABOLIC 68975 CHLORIDE 106 mmol/L 05/05 Unknown COMPREHENSIVE METABOLIC 18318 Bili Total 0.4 mg/dL 05/05 Unknown COMPREHENSIVE METABOLIC 52175 ALK PHOS 39 U/L 2018 Unknown COMPREHENSIVE METABOLIC 50131 SODIUM 139 mmol/L 05/05 Unknown COMPREHENSIVE METABOLIC 35268 CREATININE 1.44 mg/dL 04/08 Unknown COMPREHENSIVE METABOLIC 05734 CALCIUM 9.6 mg/dL 2018 Unknown COMPREHENSIVE METABOLIC 73456 POTASSIUM 4.7 mmol/L 05/05 Unknown COMPREHENSIVE METABOLIC 63338 Total Protein 6.6 g/dL Unknown COMPREHENSIVE METABOLIC 57827 Glucose 112 mg/dL 2018 Unknown COMPREHENSIVE METABOLIC 64651 Bicarbonate 28 mmol/L 04/08 Unknown COMPREHENSIVE METABOLIC 73374 AGAP 5 mmol/L 2018 Unknown THYROID STIMULATING HORMONE 25473 TSH 3.725 uIU/mL 05/05/2018 Unknown COMPLETE BLOOD COUNT [id number] WBC 8.2 10e9/L 05/05/19 19 Unknown COMPLETE BLOOD COUNT [id number] RBC 4.02 10e12/L 2018 Unknown COMPLETE BLOOD COUNT 2399446 HEMOGLOBIN 12.7 g/dL 05/05/19 19 Unknown COMPLETE BLOOD COUNT [id number] HEMATOCRIT 39.3 % 05/05/19 19 Unknown COMPLETE BLOOD COUNT [id number] MCV 97.8 fL 9 Unknown COMPLETE BLOOD COUNT 1474560 MCH 31.6 pg 9 Unknown COMPLETE BLOOD COUNT 1829435 MCHC 32.3 g/dL 9 Unknown COMPLETE BLOOD COUNT 1034975 PLATELET COUNT 213 10e9/L Unknown COMPLETE BLOOD COUNT [id number] Mean Plt Volume 11.7 fL Unknown COMPLETE BLOOD COUNT 7517594 Neut Auto 55.7 % 9 Unknown COMPLETE BLOOD COUNT [id number] Lymph Auto 33.2 % 05/05/19 19 Unknown COMPLETE BLOOD COUNT 0107402 [place] Auto 8.5 % 9 Unknown COMPLETE BLOOD COUNT 3627730 RDW 13.9 % 9 Unknown COMPLETE BLOOD COUNT 9268555 Eos Auto 2.4 % 9 Unknown COMPLETE BLOOD COUNT 8715249 Baso Auto 0.2 % 9 Unknown COMPLETE BLOOD COUNT 7012250 Neutrophil Abs 4.57 10e9/L Unknown COMPLETE BLOOD COUNT [id number] Lymphocyte Abs 2.72 10e9/L Unknown COMPLETE BLOOD COUNT [id number] Monocyte Abs 0.70 10e9/L 04/08 Unknown COMPLETE BLOOD COUNT [id number] Eosinophil Abs 0.20 10e9/L Unknown COMPLETE BLOOD COUNT 3688763 Basophil Abs 0.02 10e9/L 04/08 Unknown COMPLETE BLOOD COUNT [id number] RDW-SD 48.8 fL 9 Unknown MICROALBUMIN URINE RANDOM 50883 U Microalbumin 19.3 mg/L 01/19/2018 Unknown MICROALBUMIN URINE RANDOM 73637 U Creatinine 96 mg/dL 1 Unknown MICROALBUMIN URINE RANDOM 39358 ALB/CR Ratio 20.1 mg/gCR 01/19/2018 Unknown LIPID GROUP 71430 Cholesterol 173 mg/dL 01/13/2018 [facility] 03400 Triglyceride 386 mg/dL 01/13/2018 [facility] own [facility] 97843 HDL CHOLESTEROL 37 mg/dL 01/13/2018 U nknown L[facility] 55689 Chol/HDL Ratio 4.68 ratio 01/13/2018 U nknown L[facility] GROUP 71885 NON-HDL Chol 136 mg/dL 01/13/2018 [facility] own [facility] 47533 LDL Cholesterol 59 mg/dL 01/13/2018 U nknown COMPLETE BLOOD COUNT 3017043 WBC TNP:Client Request 01/13/2018 Unknown COMPLETE BLOOD COUNT [id number] RBC TNP:Client Request 01/13/2018 Unknown COMPLETE BLOOD COUNT [id number] HEMOGLOBIN TNP:Client Request 01/13/2018 Unknown COMPLETE BLOOD COUNT [id number] HEMATOCRIT TNP:Client Request 01/13/2018 Unknown COMPLETE BLOOD COUNT [id number] MCV TNP:Client Request 01/13/2018 Unknown COMPLETE BLOOD COUNT 5010688 MCH TNP:Client Request 01/13/2018 Unknown COMPLETE BLOOD COUNT 5341774 MCHC TNP:Client Request 01/13/2018 Unknown COMPLETE BLOOD COUNT [id number] PLATELET COUNT TNP:Client Req uest 01/13/2018 Unknown COMPLETE BLOOD COUNT [id number] Mean Plt Volume TNP:Client Re quest 01/13/2018 Unknown COMPLETE BLOOD COUNT [id number] Neut Auto TNP:Client Request 01/13/2018 Unknown COMPLETE BLOOD COUNT [id number] Lymph Auto TNP:Client Request 01/13/2018 Unknown COMPLETE BLOOD COUNT [id number] [place] Auto TNP:Client Request 01/13/2018 Unknown COMPLETE BLOOD COUNT [id number] Eos Auto TNP:Client Request 01/13/2018 Unknown COMPLETE BLOOD COUNT [id number] RDW TNP:Client Request 01/13/2018 Unknown COMPLETE BLOOD COUNT [id number] Baso Auto TNP:Client Request 01/13/2018 Unknown COMPLETE BLOOD COUNT [id number] Neutrophil Abs TNP:Client Req uest 01/13/2018 Unknown COMPLETE BLOOD COUNT [id number] Lymphocyte Abs TNP:Client Req uest 01/13/2018 Unknown COMPLETE BLOOD COUNT [id number] Monocyte Abs TNP:Client Reque st 01/13/2018 Unknown COMPLETE BLOOD COUNT [id number] Eosinophil Abs TNP:Client Req uest 01/13/2018 Unknown COMPLETE BLOOD COUNT [id number] Basophil Abs TNP:Client Reque st 01/13/2018 Unknown COMPLETE BLOOD COUNT [id number] RDW-SD TNP:Client Request 01/13/2018 Unknown GLYCOSYLATED HEMOGLOBIN TEST 96350 Hgb A1c 64556-4 6.2 % 1 Unknown THYROID STIMULATING HORMONE 13332 TSH 2.764 uIU/mL 01/13/2018 Unknown COMPREHENSIVE METABOLIC 87752 AST 19 U/L 2017 Unknown COMPREHENSIVE METABOLIC 99692 ALT 21 U/L 2017 Unknown COMPREHENSIVE METABOLIC 09433 BUN 16 mg/dL 2017 Unknown COMPREHENSIVE METABOLIC 31461 ALBUMIN 4.2 g/dL 2017 Unknown COMPREHENSIVE METABOLIC 28216 CHLORIDE 105 mmol/L 01/13 Unknown COMPREHENSIVE METABOLIC 10580 Bili Total 0.5 mg/dL 01/13 Unknown COMPREHENSIVE METABOLIC 89029 ALK PHOS 85 U/L 2017 Unknown COMPREHENSIVE METABOLIC 20917 SODIUM 139 mmol/L 01/13 Unknown COMPREHENSIVE METABOLIC 51899 CREATININE 1.07 mg/dL 01/04 Unknown COMPREHENSIVE METABOLIC 25326 CALCIUM 9.2 mg/dL 2017 Unknown COMPREHENSIVE METABOLIC 14654 POTASSIUM 4.4 mmol/L 01/13 Unknown COMPREHENSIVE METABOLIC 00999 Total Protein 7.7 g/dL Unknown COMPREHENSIVE METABOLIC 88634 Glucose 130 mg/dL 2017 Unknown COMPREHENSIVE METABOLIC 88757 Bicarbonate 27 mmol/L 01/04 Unknown COMPREHENSIVE METABOLIC 24966 AGAP 7 mmol/L 2017 Unknown PSA EQUIMOLAR JERSON 63456 PSA Total 1.16 ng/mL 8 Unknown MEAN GLUC 1677987 Calc Mean Gluc 131 mg/dL 01/13/2018 Unkn own GFR CALC 7378357 GFR Non Afr Amr >60 mL/min 01/13/2018 Un known GFR CALC 7945406 GFR Afr Amr >60 mL/min 01/13/2018 Unknow n MEAN GLUC 0863032 Calc Mean Gluc 134 mg/dL 10/06/2017 Unkn own GFR CALC 5734061 GFR Non Afr Amr >60 mL/min 10/06/2017 Un known GFR CALC 3420075 GFR Afr Amr >60 mL/min 10/06/2017 Unknow n GLYCOSYLATED HEMOGLOBIN TEST 68088 Hgb A1c 27501-4 6.3 % 0 10/06/2017 Unknown VITAMIN B 12 78425 VITAMIN B12 1202 pg/mL 10/06/2017 Unk nown COMPLETE BLOOD COUNT [id number] WBC 7.4 10e9/L 10/07/19 18 Unknown COMPLETE BLOOD COUNT [id number] RBC 4.24 10e12/L 2017 Unknown COMPLETE BLOOD COUNT 2904178 HEMOGLOBIN 13.5 g/dL 10/07/19 18 Unknown COMPLETE BLOOD COUNT [id number] HEMATOCRIT 41.6 % 10/07/19 18 Unknown COMPLETE BLOOD COUNT 5720211 MCV 98.1 fL 8 Unknown COMPLETE BLOOD COUNT 4972811 MCH 31.8 pg 8 Unknown COMPLETE BLOOD COUNT 7220574 MCHC 32.5 g/dL 8 Unknown COMPLETE BLOOD COUNT 2540535 PLATELET COUNT 223 10e9/L 06/2017 Unknown COMPLETE BLOOD COUNT 6642653 Mean Plt Volume 11.9 fL 06/2017 Unknown COMPLETE BLOOD COUNT 6478260 Neut Auto 58.0 % 8 Unknown COMPLETE BLOOD COUNT [id number] Lymph Auto 29.7 % 10/07/19 18 Unknown COMPLETE BLOOD COUNT 8401367 [place] Auto 8.3 % 8 Unknown COMPLETE BLOOD COUNT 9650988 RDW 14.0 % 8 Unknown COMPLETE BLOOD COUNT 5718233 Eos Auto 3.7 % 8 Unknown COMPLETE BLOOD COUNT 4697231 Baso Auto 0.3 % 8 Unknown COMPLETE BLOOD COUNT 5738429 Neutrophil Abs 4.29 10e9/L Unknown COMPLETE BLOOD COUNT 5830129 Lymphocyte Abs 2.20 10e9/L Unknown COMPLETE BLOOD COUNT [id number] Monocyte Abs 0.61 10e9/L 06/2017 Unknown COMPLETE BLOOD COUNT 1377938 Eosinophil Abs 0.27 10e9/L Unknown COMPLETE BLOOD COUNT 6267526 RDW-SD 48.6 fL 8 Unknown COMPLETE BLOOD COUNT 7632113 Basophil Abs 0.02 10e9/L 06/2017 Unknown LIPID GROUP 85052 Cholesterol 216 mg/dL 10/06/2017 [facility] wn [facility] 34578 Triglyceride 335 mg/dL 10/06/2017 Unkn own [facility] 54771 HDL CHOLESTEROL 33 mg/dL 10/06/2017 U nknown LIP[facility] GROUP 40167 Chol/HDL Ratio 6.55 ratio 10/06/2017 U nknown LIP[facility] GROUP 42488 NON-HDL Chol 183 mg/dL 10/06/2017 Unkn own [facility] 32671 LDL Cholesterol 116 mg/dL 10/06/2017 U nknown COMPREHENSIVE METABOLIC 55561 AST 15 U/L 2017 Unknown COMPREHENSIVE METABOLIC 95222 ALT 15 U/L 2017 Unknown COMPREHENSIVE METABOLIC 61422 BUN 21 mg/dL 2017 Unknown COMPREHENSIVE METABOLIC 69464 ALBUMIN 4.1 g/dL 2017 Unknown COMPREHENSIVE METABOLIC 24233 CHLORIDE 107 mmol/L 10/06 Unknown COMPREHENSIVE METABOLIC 57916 Bili Total 0.6 mg/dL 10/06 Unknown COMPREHENSIVE METABOLIC 24704 ALK PHOS 68 U/L 2017 Unknown COMPREHENSIVE METABOLIC 47622 SODIUM 140 mmol/L 10/06 Unknown COMPREHENSIVE METABOLIC 23030 CREATININE 1.12 mg/dL 06/2017 Unknown COMPREHENSIVE METABOLIC 98677 CALCIUM 9.7 mg/dL 2017 Unknown COMPREHENSIVE METABOLIC 54241 POTASSIUM 4.6 mmol/L 10/06 Unknown COMPREHENSIVE METABOLIC 46976 Total Protein 6.6 g/dL Unknown COMPREHENSIVE METABOLIC 00392 Glucose 114 mg/dL 2017 Unknown COMPREHENSIVE METABOLIC 76214 Bicarbonate 26 mmol/L 06/2017 Unknown COMPREHENSIVE METABOLIC 96620 AGAP 7 mmol/L 2017 Unknown GLYCOSYLATED HEMOGLOBIN TEST 94346 Hgb A1c 17203-2 6.1 % 1 05/05/2016 Unknown GFR CALC 7934758 GFR Afr Amr >60 mL/min 03/05/2017 Unknow n GFR CALC 6426127 GFR Non Afr Amr >60 mL/min 03/05/2017 Un known MEAN GLUC 0344355 Calc Mean Gluc 128 mg/dL 03/05/2017 Unkn own COMPREHENSIVE METABOLIC 47142 AST 18 U/L 2016 Unknown COMPREHENSIVE METABOLIC 69484 ALT 20 U/L 2016 Unknown COMPREHENSIVE METABOLIC 13882 BUN 15 mg/dL 2016 Unknown COMPREHENSIVE METABOLIC 26982 ALBUMIN 4.3 g/dL 2016 Unknown COMPREHENSIVE METABOLIC 01612 CHLORIDE 105 mmol/L 03/05 Unknown COMPREHENSIVE METABOLIC 63583 Bili Total 0.5 mg/dL 03/05 Unknown COMPREHENSIVE METABOLIC 52523 ALK PHOS 57 U/L 2016 Unknown COMPREHENSIVE METABOLIC 53936 SODIUM 141 mmol/L 03/05 Unknown COMPREHENSIVE METABOLIC 32869 CREATININE 1.07 mg/dL 02/06 Unknown COMPREHENSIVE METABOLIC 91983 CALCIUM 9.3 mg/dL 2016 Unknown COMPREHENSIVE METABOLIC 78638 POTASSIUM 4.8 mmol/L 03/05 Unknown COMPREHENSIVE METABOLIC 00851 Total Protein 6.2 g/dL Unknown COMPREHENSIVE METABOLIC 10070 Glucose 118 mg/dL 2016 Unknown COMPREHENSIVE METABOLIC 66859 Bicarbonate 29 mmol/L 02/06 Unknown COMPREHENSIVE METABOLIC 02831 AGAP 7 mmol/L 2016 Unknown FREE T4 56166 T4 Free 1.38 ng/dL 03/05/2017 Unknown COMPLETE BLOOD COUNT 1066284 WBC 8.4 10e9/L 03/05/20 17 Unknown COMPLETE BLOOD COUNT 1170515 RBC 4.11 10e12/L 2016 Unknown COMPLETE BLOOD COUNT 0840815 HEMOGLOBIN 12.8 g/dL 03/05/20 17 Unknown COMPLETE BLOOD COUNT 5873713 HEMATOCRIT 40.1 % 03/05/20 17 Unknown COMPLETE BLOOD COUNT 4748775 MCV 97.6 fL 7 Unknown COMPLETE BLOOD COUNT 7145838 MCH 31.1 pg 7 Unknown COMPLETE BLOOD COUNT 1684802 MCHC 31.9 g/dL 7 Unknown COMPLETE BLOOD COUNT 1352350 PLATELET COUNT 184 10e9/L Unknown COMPLETE BLOOD COUNT 5154699 Mean Plt Volume 11.3 fL Unknown COMPLETE BLOOD COUNT [id number] Neut Auto 62.5 % 7 Unknown COMPLETE BLOOD COUNT 4666696 Lymph Auto 26.4 % 03/05/20 17 Unknown COMPLETE BLOOD COUNT 2933177 [place] Auto 7.9 % 7 Unknown COMPLETE BLOOD COUNT 2530657 RDW 13.5 % 7 Unknown COMPLETE BLOOD COUNT 6627899 Eos Auto 3.0 % 7 Unknown COMPLETE BLOOD COUNT 7472092 Baso Auto 0.2 % 7 Unknown COMPLETE BLOOD COUNT 7822136 Neutrophil Abs 5.25 10e9/L Unknown COMPLETE BLOOD COUNT [id number] Lymphocyte Abs 2.22 10e9/L Unknown COMPLETE BLOOD COUNT 4839919 Monocyte Abs 0.66 10e9/L 02/06 Unknown COMPLETE BLOOD COUNT 5784865 Eosinophil Abs 0.25 10e9/L Unknown COMPLETE BLOOD COUNT 3950451 RDW-SD 46.7 fL 7 Unknown COMPLETE BLOOD COUNT [id number] Basophil Abs 0.02 10e9/L 02/06 Unknown THYROID STIMULATING HORMONE 57325 TSH 2.330 uIU/mL 03/05/2017 Unknown LIPID GROUP 39809 Cholesterol 135 mg/dL 03/05/2017 [facility]kno wn LIP[facility] 95444 Triglyceride 297 mg/dL 03/05/2017 Unkn own LIP[facility] GROUP 47045 HDL CHOLESTEROL 34 mg/dL 03/05/2017 U nknown LIPID GROUP 27856 Chol/HDL Ratio 3.97 ratio 03/05/2017 U nknown LIPID GROUP 36813 NON-HDL Chol 101 mg/dL 03/05/2017 Unkn own LIPID GROUP 98555 LDL Cholesterol 42 mg/dL 03/05/2017 U nknown GLYCOSYLATED HEMOGLOBIN TEST 18486 Hgb A1c 53662-7 6.5 % 1 05/07/2015 Unknown GFR CALC 1802841 GFR Non Afr Amr 55 mL/min 03/06/2016 Unk nown GFR CALC 6527859 GFR Afr Amr >60 mL/min 03/06/2016 Unknow n COMPLETE BLOOD COUNT 5253701 WBC 8.5 10e9/L 03/06/20 16 Unknown COMPLETE BLOOD COUNT [id number] RBC 4.32 10e12/L 2015 Unknown COMPLETE BLOOD COUNT 9918909 HEMOGLOBIN 13.5 g/dL 03/06/20 16 Unknown COMPLETE BLOOD COUNT 9844824 HEMATOCRIT 41.3 % 03/06/20 16 Unknown COMPLETE BLOOD COUNT 4454248 MCV 95.6 fL 6 Unknown COMPLETE BLOOD COUNT 3159196 MCH 31.3 pg 6 Unknown COMPLETE BLOOD COUNT 9574761 MCHC 32.7 g/dL 6 Unknown COMPLETE BLOOD COUNT 5353452 PLATELET COUNT 191 10e9/L 04/2015 Unknown COMPLETE BLOOD COUNT 7728185 Mean Plt Volume 11.7 fL 04/2015 Unknown COMPLETE BLOOD COUNT 2316584 Neut Auto 64.2 % 6 Unknown COMPLETE BLOOD COUNT 8540776 Lymph Auto 25.9 % 03/06/20 16 Unknown COMPLETE BLOOD COUNT 0281804 [place] Auto 7.8 % 6 Unknown COMPLETE BLOOD COUNT 9682333 Eos Auto 2.0 % 6 Unknown COMPLETE BLOOD COUNT 6308286 RDW 13.4 % 6 Unknown COMPLETE BLOOD COUNT 0692325 Baso Auto 0.1 % 6 Unknown COMPLETE BLOOD COUNT 0324591 Neutrophil Abs 5.46 10e9/L Unknown COMPLETE BLOOD COUNT 2465106 Lymphocyte Abs 2.20 10e9/L Unknown COMPLETE BLOOD COUNT [id number] Monocyte Abs 0.66 10e9/L 04/2015 Unknown COMPLETE BLOOD COUNT 3047011 Eosinophil Abs 0.17 10e9/L Unknown COMPLETE BLOOD COUNT 8480864 RDW-SD 45.0 fL 6 Unknown COMPLETE BLOOD COUNT 1479900 Basophil Abs 0.01 10e9/L 04/2015 Unknown FREE T4 95876 T4 Free 1.34 ng/dL 03/06/2016 Unknown MEAN GLUC 0260191 Calc Mean Gluc 140 mg/dL 03/06/2016 Unkn own COMPREHENSIVE METABOLIC 20594 AST 15 U/L 2015 Unknown COMPREHENSIVE METABOLIC 83419 ALT 18 U/L 2015 Unknown COMPREHENSIVE METABOLIC 88525 BUN 21 mg/dL 2015 Unknown COMPREHENSIVE METABOLIC 32653 ALBUMIN 4.3 g/dL 2015 Unknown COMPREHENSIVE METABOLIC 98753 CHLORIDE 103 mmol/L 03/06 Unknown COMPREHENSIVE METABOLIC 81585 Bili Total 0.4 mg/dL 03/06 Unknown COMPREHENSIVE METABOLIC 83401 ALK PHOS 68 U/L 2015 Unknown COMPREHENSIVE METABOLIC 46689 SODIUM 140 mmol/L 03/06 Unknown COMPREHENSIVE METABOLIC 35982 CREATININE 1.31 mg/dL 04/2015 Unknown COMPREHENSIVE METABOLIC 05777 CALCIUM 9.4 mg/dL 2015 Unknown COMPREHENSIVE METABOLIC 54453 POTASSIUM 4.8 mmol/L 03/06 Unknown COMPREHENSIVE METABOLIC 53107 Total Protein 6.6 g/dL Unknown COMPREHENSIVE METABOLIC 93600 Glucose 142 mg/dL 2015 Unknown COMPREHENSIVE METABOLIC 43440 Bicarbonate 29 mmol/L 04/2015 Unknown COMPREHENSIVE METABOLIC 04538 AGAP 8 mmol/L 2015 Unknown THYROID STIMULATING HORMONE 23828 TSH 2.288 uIU/mL 03/06/2016 Unknown LIPID GROUP 17759 Cholesterol 154 mg/dL 03/06/2016 Unkno wn LIPID GROUP 95599 Triglyceride 266 mg/dL 03/06/2016 Unkn own LIPID GROUP 42497 HDL CHOLESTEROL 38 mg/dL 03/06/2016 U nknown LIPID GROUP 54726 Chol/HDL Ratio 4.05 ratio 03/06/2016 U nknown LIPID GROUP 56248 NON-HDL Chol 116 mg/dL 03/06/2016 Unkn own LIPID GROUP 05964 LDL Cholesterol 63 mg/dL 03/06/2016 U nknown MEAN GLUC 6495974 Mean Glucose 128 mg/dL 08/31/2015 Unknow n COMPLETE BLOOD COUNT 9879961 WBC 8.4 10e9/L 08/31/19 16 Unknown COMPLETE BLOOD COUNT [id number] RBC 4.12 10e12/L 2015 Unknown COMPLETE BLOOD COUNT 2737220 HEMOGLOBIN 12.8 g/dL 08/31/19 16 Unknown COMPLETE BLOOD COUNT 0357192 HEMATOCRIT 39.6 % 08/31/19 16 Unknown COMPLETE BLOOD COUNT 8359541 MCV 96.1 fL 6 Unknown COMPLETE BLOOD COUNT 6408867 MCH 31.1 pg 6 Unknown COMPLETE BLOOD COUNT 5978841 MCHC 32.3 g/dL 6 Unknown COMPLETE BLOOD COUNT 7194820 PLATELET COUNT 184 10e9/L Unknown COMPLETE BLOOD COUNT 1557523 Mean Plt Volume 12.0 fL Unknown COMPLETE BLOOD COUNT 1611862 Neut Auto 59.8 % 6 Unknown COMPLETE BLOOD COUNT 3273227 Lymph Auto 27.9 % 08/31/19 16 Unknown COMPLETE BLOOD COUNT 3933362 [place] Auto 9.1 % 6 Unknown COMPLETE BLOOD COUNT 5299337 RDW 13.6 % 6 Unknown COMPLETE BLOOD COUNT 1360851 Eos Auto 3.1 % 6 Unknown COMPLETE BLOOD COUNT 9248047 Baso Auto 0.1 % 6 Unknown COMPLETE BLOOD COUNT [id number] Neutrophil Abs 5.02 10e9/L Unknown COMPLETE BLOOD COUNT 8456962 Lymphoctye Abs 2.34 10e9/L Unknown COMPLETE BLOOD COUNT 8582101 Monocyte Abs 0.76 10e9/L 08/05 Unknown COMPLETE BLOOD COUNT 0795925 Eosinophil Abs 0.26 10e9/L Unknown COMPLETE BLOOD COUNT 9101648 RDW-SD 46.3 fL 05/27/201 6 Unknown COMPLETE BLOOD COUNT 5968917 Basophil Abs 0.01 10e9/L 08/05 Unknown GLYCOSYLATED HEMOGLOBIN TEST 17563 Hgb A1c 75501-1 6.1 % 0 08/31/2015 Unknown GFR CALC 9537819 GFR Afr Amr >60 mL/min 08/31/2015 Unknow n GFR CALC 9636559 GFR Non Afr Amr >60 mL/min 08/31/2015 Un known FREE T4 71911 T4 Free 1.21 ng/dL 08/31/2015 Unknown THYROID STIMULATING HORMONE 98945 TSH 2.988 uIU/mL 08/31/2015 Unknown COMPREHENSIVE METABOLIC 76890 AST 16 U/L 2015 Unknown COMPREHENSIVE METABOLIC 31201 ALT 19 U/L 2015 Unknown COMPREHENSIVE METABOLIC 13276 BUN 17 mg/dL 2015 Unknown COMPREHENSIVE METABOLIC 29275 ALBUMIN 4.3 g/dL 2015 Unknown COMPREHENSIVE METABOLIC 14786 CHLORIDE 107 mmol/L 08/30 Unknown COMPREHENSIVE METABOLIC 08083 Bili Total 0.4 mg/dL 08/30 Unknown COMPREHENSIVE METABOLIC 59303 ALK PHOS 66 U/L 2015 Unknown COMPREHENSIVE METABOLIC 03813 SODIUM 140 mmol/L 08/30 Unknown COMPREHENSIVE METABOLIC 35464 CREATININE 1.07 mg/dL 08/05 Unknown COMPREHENSIVE METABOLIC 57829 CALCIUM 9.5 mg/dL 2015 Unknown COMPREHENSIVE METABOLIC 00351 POTASSIUM 4.5 mmol/L 08/30 Unknown COMPREHENSIVE METABOLIC 80663 Total Protein 6.7 g/dL Unknown COMPREHENSIVE METABOLIC 05224 Glucose 122 mg/dL 2015 Unknown COMPREHENSIVE METABOLIC 65995 Bicarbonate 26 mmol/L 08/05 Unknown COMPREHENSIVE METABOLIC 48477 AGAP 7 mmol/L 2015 Unknown LIPID GROUP 35157 Cholesterol 171 mg/dL 08/31/2015 Unkno wn LIPID GROUP 10884 Triglyceride 428 mg/dL 08/31/2015 Unkn own LIPID GROUP 21272 HDL CHOLESTEROL 35 mg/dL 08/31/2015 U nknown LIPID GROUP 98810 Chol/HDL Ratio 4.89 ratio 08/31/2015 U nknown LIPID GROUP 59876 NON-HDL Chol 136 mg/dL 08/31/2015 Unkn own LIPID GROUP 27103 LDL Cholesterol 50 mg/dL 08/31/2015 U nknown PSA EQUIMOLAR JERSON 88961 PSA Total 0.47 ng/mL 6 Unknown GFR CALC 9207076 GFR AA >60 ML/MIN 01/12/2015 Unknown GFR CALC 6602767 GFR NON-AA >60 ML/MIN 01/12/2015 Unknown COMPREHENSIVE METABOLIC 14893 AST 18 U/L 2014 Unknown COMPREHENSIVE METABOLIC 01515 ALT 19 IU/L 2014 Unknown COMPREHENSIVE METABOLIC 87115 BUN 19 MG/DL 2014 Unknown COMPREHENSIVE METABOLIC 72240 ALBUMIN 4.7 GM/DL 2014 Unknown COMPREHENSIVE METABOLIC 71907 CHLORIDE 104 MMOL/L 01/12 Unknown COMPREHENSIVE METABOLIC 68073 BILI TOT 0.8 MG/DL 2014 Unknown COMPREHENSIVE METABOLIC 58892 ALK PHOS 58 U/L 2014 Unknown COMPREHENSIVE METABOLIC 44607 SODIUM 139 MMOL/L 01/12 Unknown COMPREHENSIVE METABOLIC 51808 CREATININE 1.09 MG/DL 12/2014 Unknown COMPREHENSIVE METABOLIC 81456 CALCIUM 9.6 MG/DL 2014 Unknown COMPREHENSIVE METABOLIC 15624 POTASSIUM 4.4 MMOL/L 01/12 Unknown COMPREHENSIVE METABOLIC 36015 PROT TOT 6.7 GM/DL 2014 Unknown COMPREHENSIVE METABOLIC 72093 Glucose 109 MG/DL 2014 Unknown COMPREHENSIVE METABOLIC 19171 BICARB 27 MMOL/L 2014 Unknown COMPREHENSIVE METABOLIC 62481 ANION GAP 8 MEQ/L 2014 Unknown LIPID GROUP 68380 HDL TEST 36 MG/DL 01/12/2015 Unknown LIPID GROUP 15259 TRIG 220 MG/DL 01/12/2015 Unknown LIPID GROUP 99256 TEST LDL 58 MG/DL 01/12/2015 Unknown LIPID GROUP 33939 CHOL 138 MG/DL 01/12/2015 Unknown LIPID GROUP 89197 RCHOL/HDL 3.83 RATIO 01/12/2015 Unknow n LIPID GROUP 33293 NON-HDL CH 102 MG/DL 01/12/2015 Unknow n GLYCOSYLATED HEMOGLOBIN TEST 24305 A1C HPLC 52157-5 6.1 % 1 Unknown COMPLETE BLOOD COUNT 3250404 WBC 7.1 10e9/L 01/13/20 15 Unknown COMPLETE BLOOD COUNT [id number] RBC 4.38 10e12/L 2014 Unknown COMPLETE BLOOD COUNT 9155238 HGB 13.7 g/dL 5 Unknown COMPLETE BLOOD COUNT 4193262 HCT DET 41.3 % 5 Unknown COMPLETE BLOOD COUNT 8745869 MCV 94.3 fL 5 Unknown COMPLETE BLOOD COUNT 2134855 MCH 31.3 pg 5 Unknown COMPLETE BLOOD COUNT 1008400 MCHC 33.2 g/dL 5 Unknown COMPLETE BLOOD COUNT 9820455 PLT 174 10e9/L 01/13/20 15 Unknown COMPLETE BLOOD COUNT 4067588 MPV 11.8 fL 5 Unknown COMPLETE BLOOD COUNT 2909440 SAMIR % 61.3 % 5 Unknown COMPLETE BLOOD COUNT 3027919 LY % 28.3 % 5 Unknown COMPLETE BLOOD COUNT 0248915 MON % 7.6 % 5 Unknown COMPLETE BLOOD COUNT 2904974 EOS % 2.7 % 5 Unknown COMPLETE BLOOD COUNT 3149638 BASO % 0.1 % 5 Unknown COMPLETE BLOOD COUNT 5541949 RDW 13.1 % 5 Unknown COMPLETE BLOOD COUNT 6493817 ABS SAMIR 4.35 10e9/L 015 Unknown COMPLETE BLOOD COUNT 5909878 ABS LYMPH 2.01 10e9/L 015 Unknown COMPLETE BLOOD COUNT 1587256 ABS MONO 0.54 10e9/L 015 Unknown COMPLETE BLOOD COUNT [id number] ABS EOS 0.19 10e9/L 015 Unknown COMPLETE BLOOD COUNT 4280346 ABS BASO 0.01 10e9/L 015 Unknown COMPLETE BLOOD COUNT 2082941 RDW-SD 43.9 fL 5 Unknown GLYCOSYLATED HEMOGLOBIN TEST 93652 A1C HPLC 73685-1 6.1 % 0 08/15/2014 Unknown COMPLETE BLOOD COUNT 1797002 WBC 9.7 10e9/L 08/16/19 15 Unknown COMPLETE BLOOD COUNT 0409531 RBC 4.29 10e12/L 2014 Unknown COMPLETE BLOOD COUNT 9530375 HGB 13.3 g/dL 5 Unknown COMPLETE BLOOD COUNT [id number] HCT DET 40.5 % 5 Unknown COMPLETE BLOOD COUNT [id number] MCV 94.4 fL 5 Unknown COMPLETE BLOOD COUNT [id number] MCH 31.0 pg 5 Unknown COMPLETE BLOOD COUNT [id number] MCHC 32.8 g/dL 5 Unknown COMPLETE BLOOD COUNT [id number] PLT 227 10e9/L 08/16/19 15 Unknown COMPLETE BLOOD COUNT [id number] MPV 11.0 fL 5 Unknown COMPLETE BLOOD COUNT [id number] SAMIR % 66.4 % 5 Unknown COMPLETE BLOOD COUNT [id number] LY % 23.7 % 5 Unknown COMPLETE BLOOD COUNT [id number] MON % 8.1 % 5 Unknown COMPLETE BLOOD COUNT [id number] EOS % 1.6 % 5 Unknown COMPLETE BLOOD COUNT [id number] BASO % 0.2 % 5 Unknown COMPLETE BLOOD COUNT 0208014 RDW 13.4 % 5 Unknown COMPLETE BLOOD COUNT [id number] ABS SAMIR 6.44 10e9/L 015 Unknown COMPLETE BLOOD COUNT [id number] ABS LYMPH 2.30 10e9/L 015 Unknown COMPLETE BLOOD COUNT [id number] ABS MONO 0.79 10e9/L 015 Unknown COMPLETE BLOOD COUNT [id number] ABS EOS 0.16 10e9/L 015 Unknown COMPLETE BLOOD COUNT [id number] ABS BASO 0.02 10e9/L 015 Unknown COMPLETE BLOOD COUNT [id number] RDW-SD 44.7 fL 5 Unknown COMPREHENSIVE METABOLIC 25673 AST 17 U/L 2014 Unknown COMPREHENSIVE METABOLIC 09144 ALT 23 IU/L 2014 Unknown COMPREHENSIVE METABOLIC 88566 BUN 16 MG/DL 2014 Unknown COMPREHENSIVE METABOLIC 91972 ALBUMIN 4.3 GM/DL 2014 Unknown COMPREHENSIVE METABOLIC 93326 CHLORIDE 107 MMOL/L 08/15 Unknown COMPREHENSIVE METABOLIC 68940 BILI TOT 0.4 MG/DL 2014 Unknown COMPREHENSIVE METABOLIC 67300 ALK PHOS 91 U/L 2014 Unknown COMPREHENSIVE METABOLIC 67578 SODIUM 139 MMOL/L 08/15 Unknown COMPREHENSIVE METABOLIC 93033 CREATININE 1.07 MG/DL 08/04 Unknown COMPREHENSIVE METABOLIC 56911 CALCIUM 9.6 MG/DL 2014 Unknown COMPREHENSIVE METABOLIC 68015 POTASSIUM 4.6 MMOL/L 08/15 Unknown COMPREHENSIVE METABOLIC 82815 PROT TOT 6.7 GM/DL 2014 Unknown COMPREHENSIVE METABOLIC 16719 Glucose 111 MG/DL 2014 Unknown COMPREHENSIVE METABOLIC 96060 BICARB 27 MMOL/L 2014 Unknown COMPREHENSIVE METABOLIC 89639 ANION GAP 5 MEQ/L 2014 Unknown GFR CALC [id number] GFR AA >60 ML/MIN 08/15/2014 Unknown GFR CALC [id number] GFR NON-AA >60 ML/MIN 08/15/2014 Unknown THYROID STIMULATING HORMONE 49633 TSH 1.598 uIU/ML 08/15/2014 Unknown LIPID GROUP 42935 HDL TEST 33 MG/DL 08/15/2014 Unknown LIPID GROUP 74023 TRIG 187 MG/DL 08/15/2014 Unknown LIPID GROUP 96041 TEST LDL 58 MG/DL 08/15/2014 Unknown LIPID GROUP 64565 CHOL 128 MG/DL 08/15/2014 Unknown LIPID GROUP 25349 RCHOL/HDL 3.88 RATIO 08/15/2014 Unknow n LIPID GROUP 47190 NON-HDL CH 95 MG/DL 08/15/2014 Unknow n PSA EQUIMOLAR JERSON 52154 PSA EQ 0.70 NG/ML 5 Unknown FREE T4 05830 FREE T4 1.32 NG/DL 08/15/2014 Unknown GFR CALC 1701323 GFR AA >60 ML/MIN 12/14/2013 Unknown GFR CALC 6946459 GFR NON-AA 58.0L ML/MIN 12/14/2013 Unkno wn COMPLETE BLOOD COUNT [id number] WBC 8.7 10e9/L 12/15/19 14 Unknown COMPLETE BLOOD COUNT 9297473 RBC 4.32 10e12/L 2013 Unknown COMPLETE BLOOD COUNT 0309982 HGB 13.5 g/dL 4 Unknown COMPLETE BLOOD COUNT [id number] HCT DET 40.6 % 4 Unknown COMPLETE BLOOD COUNT 6136535 MCV 94.0 fL 4 Unknown COMPLETE BLOOD COUNT 0688679 MCH 31.3 pg 4 Unknown COMPLETE BLOOD COUNT 8689911 MCHC 33.3 g/dL 4 Unknown COMPLETE BLOOD COUNT 8759796 PLT 205 10e9/L 12/15/19 14 Unknown COMPLETE BLOOD COUNT 8581574 MPV 11.7 fL 4 Unknown COMPLETE BLOOD COUNT 7512193 SAMIR % 62.5 % 4 Unknown COMPLETE BLOOD COUNT 5108483 LY % 26.9 % 4 Unknown COMPLETE BLOOD COUNT 8365044 MON % 8.8 % 4 Unknown COMPLETE BLOOD COUNT 4265449 EOS % 1.7 % 4 Unknown COMPLETE BLOOD COUNT 5817712 BASO % 0.1 % 4 Unknown COMPLETE BLOOD COUNT 2179947 RDW 13.4 % 4 Unknown COMPLETE BLOOD COUNT [id number] ABS SAMIR 5.44 10e9/L 014 Unknown COMPLETE BLOOD COUNT [id number] ABS LYMPH 2.34 10e9/L 014 Unknown COMPLETE BLOOD COUNT [id number] ABS MONO 0.77 10e9/L 014 Unknown COMPLETE BLOOD COUNT [id number] ABS EOS 0.15 10e9/L 014 Unknown COMPLETE BLOOD COUNT 5949915 ABS BASO 0.01 10e9/L 014 Unknown COMPLETE BLOOD COUNT 1826323 RDW-SD 44.7 fL 4 Unknown COMPREHENSIVE METABOLIC 26795 AST 14 U/L 2013 Unknown COMPREHENSIVE METABOLIC 26583 ALT 12 IU/L 2013 Unknown COMPREHENSIVE METABOLIC 34753 BUN 24 MG/DL 2013 Unknown COMPREHENSIVE METABOLIC 10662 ALBUMIN 4.5 GM/DL 2013 Unknown COMPREHENSIVE METABOLIC 20268 CHLORIDE 104 MMOL/L 12/14 Unknown COMPREHENSIVE METABOLIC 00640 BILI TOT 0.6 MG/DL 2013 Unknown COMPREHENSIVE METABOLIC 50228 ALK PHOS 82 U/L 2013 Unknown COMPREHENSIVE METABOLIC 03252 SODIUM 135 MMOL/L 12/14 Unknown COMPREHENSIVE METABOLIC 33901 CREATININE 1.25 MG/DL 12/05 Unknown COMPREHENSIVE METABOLIC 75155 CALCIUM 9.8 MG/DL 2013 Unknown COMPREHENSIVE METABOLIC 03512 POTASSIUM 4.7 MMOL/L 12/14 Unknown COMPREHENSIVE METABOLIC 74531 PROT TOT 6.7 GM/DL 2013 Unknown COMPREHENSIVE METABOLIC 98946 Glucose 126 MG/DL 2013 Unknown COMPREHENSIVE METABOLIC 99296 BICARB 27 MMOL/L 2013 Unknown COMPREHENSIVE METABOLIC 26487 ANION GAP 4 MEQ/L 2013 Unknown THYROID STIMULATING HORMONE 64372 TSH 3.281 uIU/ML 12/14/2013 Unknown FREE T4 22500 FREE T4 1.28 NG/DL 12/14/2013 Unknown LIPID GROUP 17689 HDL TEST 36 MG/DL 12/14/2013 Unknown LIPID GROUP 17997 TRIG 253 MG/DL 12/14/2013 Unknown LIPID GROUP 47635 TEST LDL 56 MG/DL 12/14/2013 Unknown LIPID GROUP 64520 CHOL 143 MG/DL 12/14/2013 Unknown LIPID GROUP 40685 RCHOL/HDL 3.97 RATIO 12/14/2013 Unknow n LIPID GROUP 30434 NON-HDL CH 107 MG/DL 12/14/2013 Unknow n GLYCOSYLATED HEMOGLOBIN TEST 31339 A1C HPLC 00512-7 6.1 % 0 12/14/2013 Unknown GLYCOSYLATED HEMOGLOBIN TEST 29725 A1C HPLC 52244-0 6.0 % 0 06/08/2013 Unknown LIPID GROUP 15069 HDL TEST 39 MG/DL 06/08/2013 Unknown LIPID GROUP 41053 TRIG 166 MG/DL 06/08/2013 Unknown LIPID GROUP 28896 TEST LDL 86 MG/DL 06/08/2013 Unknown LIPID GROUP 40532 CHOL 158 MG/DL 06/08/2013 Unknown LIPID GROUP 13466 RCHOL/HDL 4.05 RATIO 06/08/2013 Unknow n COMPREHENSIVE METABOLIC 78103 AST 17 U/L 2013 Unknown COMPREHENSIVE METABOLIC 93682 ALT 25 IU/L 2013 Unknown COMPREHENSIVE METABOLIC 40940 BUN 18 MG/DL 2013 Unknown COMPREHENSIVE METABOLIC 04917 ALBUMIN 4.5 GM/DL 2013 Unknown COMPREHENSIVE METABOLIC 18820 CHLORIDE 103 MMOL/L 06/08 Unknown COMPREHENSIVE METABOLIC 47132 BILI TOT 0.4 MG/DL 2013 Unknown COMPREHENSIVE METABOLIC 80296 ALK PHOS 72 U/L 2013 Unknown COMPREHENSIVE METABOLIC 52293 SODIUM 137 MMOL/L 06/08 Unknown COMPREHENSIVE METABOLIC 13947 CREATININE 1.07 MG/DL 08/2013 Unknown COMPREHENSIVE METABOLIC 21101 CALCIUM 9.7 MG/DL 2013 Unknown COMPREHENSIVE METABOLIC 11138 POTASSIUM 4.7 MMOL/L 06/08 Unknown COMPREHENSIVE METABOLIC 40604 PROT TOT 6.6 GM/DL 2013 Unknown COMPREHENSIVE METABOLIC 97257 Glucose 130 MG/DL 2013 Unknown COMPREHENSIVE METABOLIC 50916 BICARB 25 MMOL/L 2013 Unknown COMPREHENSIVE METABOLIC 75225 ANION GAP 9 MEQ/L 2013 Unknown FREE T4 07878 FREE T4 1.29 NG/DL 06/08/2013 Unknown THYROID STIMULATING HORMONE 07465 TSH 2.445 uIU/ML 06/08/2013 Unknown GFR CALC 3405265 GFR AA >60 ML/MIN 06/08/2013 Unknown GFR CALC 5545303 GFR NON-AA >60 ML/MIN 06/08/2013 Unknown COMPLETE BLOOD COUNT 9259460 WBC 8.2 10e9/L 06/09/19 14 Unknown COMPLETE BLOOD COUNT 2396290 RBC 4.63 10e12/L 2013 Unknown COMPLETE BLOOD COUNT 7642988 HGB 14.1 g/dL 4 Unknown COMPLETE BLOOD COUNT 9273869 HCT DET 42.6 % 4 Unknown COMPLETE BLOOD COUNT 1001067 MCV 92.0 fL 4 Unknown COMPLETE BLOOD COUNT 2569324 MCH 30.5 pg 4 Unknown COMPLETE BLOOD COUNT 5905741 MCHC 33.1 g/dL 4 Unknown COMPLETE BLOOD COUNT 4118177 PLT 222 10e9/L 06/09/19 14 Unknown COMPLETE BLOOD COUNT 9606084 MPV 10.8 fL 4 Unknown COMPLETE BLOOD COUNT 5205131 SAMIR % 60.8 % 4 Unknown COMPLETE BLOOD COUNT 5999335 LY % 29.2 % 4 Unknown COMPLETE BLOOD COUNT [id number] MON % 7.6 % 4 Unknown COMPLETE BLOOD COUNT 5345231 EOS % 2.3 % 4 Unknown COMPLETE BLOOD COUNT 6147012 BASO % 0.1 % 4 Unknown COMPLETE BLOOD COUNT 7466244 RDW 13.7 % 4 Unknown COMPLETE BLOOD COUNT [id number] ABS SAMIR 4.99 10e9/L 014 Unknown COMPLETE BLOOD COUNT 8578152 ABS LYMPH 2.39 10e9/L 014 Unknown COMPLETE BLOOD COUNT 1640184 ABS MONO 0.62 10e9/L 014 Unknown COMPLETE BLOOD COUNT 8519968 ABS EOS 0.19 10e9/L 014 Unknown COMPLETE BLOOD COUNT 1732391 ABS BASO 0.01 10e9/L 014 Unknown COMPLETE BLOOD COUNT 4775248 RDW-SD 45.2 fL 4 Unknown LIPID GROUP 93163 HDL TEST 40 MG/DL 11/11/2012 Unknown LIPID GROUP 76286 TRIG 153 MG/DL 11/11/2012 Unknown LIPID GROUP 85911 TEST LDL 71 MG/DL 11/11/2012 Unknown LIPID GROUP 28673 CHOL 142 MG/DL 11/11/2012 Unknown LIPID GROUP 99981 RCHOL/HDL 3.55 RATIO 11/11/2012 Unknow n GFR CALC 8377238 GFR AA >60 ML/MIN 11/11/2012 Unknown GFR CALC 0716907 GFR NON-AA 57.0L ML/MIN 11/11/2012 Unkno wn HEMOGLOBIN A1C (GLYCOSYLATED) 0225860 A1C HPLC 08273-9 5.9 % 11/11/2012 Unknown THYROID STIMULATING HORMONE 42306 TSH 2.439 uIU/ML 11/11/2012 Unknown COMPLETE BLOOD COUNT 7910596 WBC 8.5 10e9/L 11/12/19 13 Unknown COMPLETE BLOOD COUNT 3974780 RBC 4.42 10e12/L 2012 Unknown COMPLETE BLOOD COUNT 3746206 HGB 13.7 g/dL 3 Unknown COMPLETE BLOOD COUNT 5148706 HCT DET 41.3 % 3 Unknown COMPLETE BLOOD COUNT 0768504 MCV 93.4 fL 3 Unknown COMPLETE BLOOD COUNT 9069080 MCH 31.0 pg 3 Unknown COMPLETE BLOOD COUNT 0166592 MCHC 33.2 g/dL 3 Unknown COMPLETE BLOOD COUNT 9502937 PLT 220 10e9/L 11/12/19 13 Unknown COMPLETE BLOOD COUNT 1248326 MPV 10.8 fL 3 Unknown COMPLETE BLOOD COUNT 8136316 SAMIR % 60.4 % 3 Unknown COMPLETE BLOOD COUNT 2782896 LY % 28.7 % 3 Unknown COMPLETE BLOOD COUNT 9525538 MON % 8.0 % 3 Unknown COMPLETE BLOOD COUNT 7447663 EOS % 2.8 % 3 Unknown COMPLETE BLOOD COUNT 3887726 BASO % 0.1 % 3 Unknown COMPLETE BLOOD COUNT 4855402 RDW 13.7 % 3 Unknown COMPLETE BLOOD COUNT 3007827 ABS SAMIR 5.13 10e9/L 013 Unknown COMPLETE BLOOD COUNT 0634518 ABS LYMPH 2.44 10e9/L 013 Unknown COMPLETE BLOOD COUNT 8174929 ABS MONO 0.68 10e9/L 013 Unknown COMPLETE BLOOD COUNT 0413318 ABS EOS 0.24 10e9/L 013 Unknown COMPLETE BLOOD COUNT 8965083 ABS BASO 0.01 10e9/L 013 Unknown COMPLETE BLOOD COUNT 2404658 RDW-SD 45.6 fL 3 Unknown COMPREHENSIVE METABOLIC 44961 AST 19 U/L 2012 Unknown COMPREHENSIVE METABOLIC 33220 ALT 28 IU/L 2012 Unknown COMPREHENSIVE METABOLIC 23879 BUN 31 MG/DL 2012 Unknown COMPREHENSIVE METABOLIC 00333 ALBUMIN 4.7 GM/DL 2012 Unknown COMPREHENSIVE METABOLIC 33773 CHLORIDE 106 MMOL/L 11/11 Unknown COMPREHENSIVE METABOLIC 09364 BILI TOT 0.5 MG/DL 2012 Unknown COMPREHENSIVE METABOLIC 13452 ALK PHOS 64 U/L 2012 Unknown COMPREHENSIVE METABOLIC 05755 SODIUM 136 MMOL/L 11/11 Unknown COMPREHENSIVE METABOLIC 84055 CREATININE 1.27 MG/DL 11/2012 Unknown COMPREHENSIVE METABOLIC 53066 CALCIUM 9.4 MG/DL 2012 Unknown COMPREHENSIVE METABOLIC 75876 POTASSIUM 4.9 MMOL/L 11/11 Unknown COMPREHENSIVE METABOLIC 04655 PROT TOT 6.7 GM/DL 2012 Unknown COMPREHENSIVE METABOLIC 18864 Glucose 108 MG/DL 2012 Unknown COMPREHENSIVE METABOLIC 32397 BICARB 21 MMOL/L 2012 Unknown COMPREHENSIVE METABOLIC 89106 ANION GAP 9 MEQ/L 2012 Unknown THYROID STIMULATING HORMONE 10843 TSH 2.572 uIU/ML 05/04/2012 Unknown COMPLETE BLOOD COUNT [id number] WBC 9.3 10e9/L 05/04/19 13 Unknown COMPLETE BLOOD COUNT 5041815 RBC 4.43 10e12/L 2012 Unknown COMPLETE BLOOD COUNT 5977361 HGB 14.2 g/dL 3 Unknown COMPLETE BLOOD COUNT 4479684 HCT DET 41.1 % 3 Unknown COMPLETE BLOOD COUNT 1327261 MCV 92.8 fL 3 Unknown COMPLETE BLOOD COUNT 3382631 MCH 32.1 pg 3 Unknown COMPLETE BLOOD COUNT 6132273 MCHC 34.5 g/dL 3 Unknown COMPLETE BLOOD COUNT 0342924 PLT 193 10e9/L 05/04/19 13 Unknown COMPLETE BLOOD COUNT 8462845 MPV 10.8 fL 3 Unknown COMPLETE BLOOD COUNT 9596145 SAMIR % 63.0 % 3 Unknown COMPLETE BLOOD COUNT 7387886 LY % 25.3 % 3 Unknown COMPLETE BLOOD COUNT 6588976 MON % 9.1 % 3 Unknown COMPLETE BLOOD COUNT 0145854 EOS % 2.5 % 3 Unknown COMPLETE BLOOD COUNT 3395317 BASO % 0.1 % 3 Unknown COMPLETE BLOOD COUNT 8990708 RDW 12.6 % 3 Unknown COMPLETE BLOOD COUNT 4789229 ABS SAMIR 5.86 10e9/L 013 Unknown COMPLETE BLOOD COUNT 5441201 ABS LYMPH 2.35 10e9/L 013 Unknown COMPLETE BLOOD COUNT 2641793 ABS MONO 0.85 10e9/L 013 Unknown COMPLETE BLOOD COUNT [id number] ABS EOS 0.23 10e9/L 013 Unknown COMPLETE BLOOD COUNT 9769341 ABS BASO 0.01 10e9/L 013 Unknown COMPLETE BLOOD COUNT 7197895 RDW-SD 41.2 fL 3 Unknown LIPID GROUP 55152 HDL TEST 35 MG/DL 05/04/2012 Unknown LIPID GROUP 71272 TRIG 236 MG/DL 05/04/2012 Unknown LIPID GROUP 05543 TEST LDL 64 MG/DL 05/04/2012 Unknown LIPID GROUP 55559 CHOL 146 MG/DL 05/04/2012 Unknown LIPID GROUP 13462 RCHOL/HDL 4.17 RATIO 05/04/2012 Unknow n COMPREHENSIVE METABOLIC 56890 AST 23 U/L 2012 Unknown COMPREHENSIVE METABOLIC 49959 ALT 33 IU/L 2012 Unknown COMPREHENSIVE METABOLIC 22773 BUN 16 MG/DL 2012 Unknown COMPREHENSIVE METABOLIC 53946 ALBUMIN 4.8 GM/DL 2012 Unknown COMPREHENSIVE METABOLIC 74599 CHLORIDE 104 MMOL/L 05/04 Unknown COMPREHENSIVE METABOLIC 65965 BILI TOT 0.5 MG/DL 2012 Unknown COMPREHENSIVE METABOLIC 02049 ALK PHOS 70 U/L 2012 Unknown COMPREHENSIVE METABOLIC 63736 SODIUM 138 MMOL/L 05/04 Unknown COMPREHENSIVE METABOLIC 03073 CREATININE 1.08 MG/DL 04/07 Unknown COMPREHENSIVE METABOLIC 28786 CALCIUM 9.7 MG/DL 2012 Unknown COMPREHENSIVE METABOLIC 45192 POTASSIUM 4.4 MMOL/L 05/04 Unknown COMPREHENSIVE METABOLIC 54411 PROT TOT 6.8 GM/DL 2012 Unknown COMPREHENSIVE METABOLIC 88544 Glucose 114 MG/DL 2012 Unknown COMPREHENSIVE METABOLIC 44838 BICARB 27 MMOL/L 2012 Unknown COMPREHENSIVE METABOLIC 46738 ANION GAP 7 MEQ/L 2012 Unknown FREE T4 01536 FREE T4 1.11 NG/DL 05/04/2012 Unknown GFR CALC 5962374 GFR AA >60 ML/MIN 05/04/2012 Unknown GFR CALC 1964819 GFR NON-AA >60 ML/MIN 05/04/2012 Unknown GLYCOSYLATED HEMOGLOBIN TEST 88053 A1C HPLC 70584-8 5.8 % 0 10/29/2011 Unknown COMPREHENSIVE METABOLIC 00447 AST 17 U/L 2011 Unknown COMPREHENSIVE METABOLIC 61328 ALT 21 IU/L 2011 Unknown COMPREHENSIVE METABOLIC 31550 BUN 17 MG/DL 2011 Unknown COMPREHENSIVE METABOLIC 43096 ALBUMIN 4.8 GM/DL 2011 Unknown COMPREHENSIVE METABOLIC 41540 CHLORIDE 106 MMOL/L 10/28 Unknown COMPREHENSIVE METABOLIC 91945 BILI TOT 0.6 MG/DL 2011 Unknown COMPREHENSIVE METABOLIC 15516 ALK PHOS 57 U/L 2011 Unknown COMPREHENSIVE METABOLIC 02899 SODIUM 139 MMOL/L 10/28 Unknown COMPREHENSIVE METABOLIC 18357 CREATININE 1.08 MG/DL 10/05 Unknown COMPREHENSIVE METABOLIC 80075 CALCIUM 9.6 MG/DL 2011 Unknown COMPREHENSIVE METABOLIC 13532 POTASSIUM 4.4 MMOL/L 10/28 Unknown COMPREHENSIVE METABOLIC 51033 PROT TOT 6.9 GM/DL 2011 Unknown COMPREHENSIVE METABOLIC 28636 Glucose 104 MG/DL 2011 Unknown COMPREHENSIVE METABOLIC 44345 BICARB 25 MMOL/L 2011 Unknown COMPREHENSIVE METABOLIC 54329 ANION GAP 8 MEQ/L 2011 Unknown LIPID GROUP 76184 HDL TEST 39 MG/DL 10/29/2011 Unknown LIPID GROUP 91035 TRIG 176 MG/DL 10/29/2011 Unknown LIPID GROUP 51858 TEST LDL 70 MG/DL 10/29/2011 Unknown LIPID GROUP 62590 CHOL 144 MG/DL 10/29/2011 Unknown LIPID GROUP 86315 RCHOL/HDL 3.69 RATIO 10/29/2011 Unknow n GFR CALC 3273797 GFR AA >60 ML/MIN 10/29/2011 Unknown GFR CALC 8193177 GFR NON-AA >60 ML/MIN 10/29/2011 Unknown GFR CALC 2312734 GFR AA >60 ML/MIN 03/14/2011 Unknown GFR CALC 9897500 GFR NON-AA >60 ML/MIN 03/14/2011 Unknown GLYCOSYLATED HEMOGLOBIN TEST 94183 A1C HPLC 21969-5 5.7 % 1 05/15/2010 Unknown COMPREHENSIVE METABOLIC 38991 AST 18 U/L 2010 Unknown COMPREHENSIVE METABOLIC 68477 ALT 25 IU/L 2010 Unknown COMPREHENSIVE METABOLIC 19993 BUN 15 MG/DL 2010 Unknown COMPREHENSIVE METABOLIC 06170 ALBUMIN 4.6 GM/DL 2010 Unknown COMPREHENSIVE METABOLIC 87245 CHLORIDE 107 MMOL/L 03/14 Unknown COMPREHENSIVE METABOLIC 54890 BILI TOT 0.6 MG/DL 2010 Unknown COMPREHENSIVE METABOLIC 62814 ALK PHOS 54 U/L 2010 Unknown COMPREHENSIVE METABOLIC 25105 SODIUM 140 MMOL/L 03/14 Unknown COMPREHENSIVE METABOLIC 11716 CREATININE 1.02 MG/DL 12/2010 Unknown COMPREHENSIVE METABOLIC 98732 CALCIUM 9.4 MG/DL 2010 Unknown COMPREHENSIVE METABOLIC 68408 POTASSIUM 4.6 MMOL/L 03/14 Unknown COMPREHENSIVE METABOLIC 29681 PROT TOT 7.0 GM/DL 2010 Unknown COMPREHENSIVE METABOLIC 50195 Glucose 107 MG/DL 2010 Unknown COMPREHENSIVE METABOLIC 93197 BICARB 28 MMOL/L 2010 Unknown COMPREHENSIVE METABOLIC 52420 ANION GAP 5 MEQ/L 2010 Unknown LIPID GROUP 38882 HDL TEST 39 MG/DL 03/14/2011 Unknown LIPID GROUP 42659 TRIG 157 MG/DL 03/14/2011 Unknown LIPID GROUP 24035 TEST LDL 66 MG/DL 03/14/2011 Unknown LIPID GROUP 78904 CHOL 136 MG/DL 03/14/2011 Unknown LIPID GROUP 55240 RCHOL/HDL 3.49 RATIO 03/14/2011 Unknow n GFR CALC 5793577 GFR AA >60 ML/MIN 11/11/2010 Unknown GFR CALC 7830596 GFR NON-AA >60 ML/MIN 11/11/2010 Unknown LIPID GROUP 90684 HDL TEST 39 MG/DL 11/11/2010 Unknown LIPID GROUP 34422 TRIG 212 MG/DL 11/11/2010 Unknown LIPID GROUP 72980 TEST LDL 67 MG/DL 11/11/2010 Unknown LIPID GROUP 23391 CHOL 148 MG/DL 11/11/2010 Unknown LIPID GROUP 34791 RCHOL/HDL 3.79 RATIO 11/11/2010 Unknow n COMPREHENSIVE METABOLIC 41514 AST 17 U/L 2010 Unknown COMPREHENSIVE METABOLIC 72719 ALT 21 IU/L 2010 Unknown COMPREHENSIVE METABOLIC 77887 BUN 16 MG/DL 2010 Unknown COMPREHENSIVE METABOLIC 76689 ALBUMIN 4.6 GM/DL 2010 Unknown COMPREHENSIVE METABOLIC 54901 CHLORIDE 106 MMOL/L 11/11 Unknown COMPREHENSIVE METABOLIC 51401 BILI TOT 0.5 MG/DL 2010 Unknown COMPREHENSIVE METABOLIC 73429 ALK PHOS 61 U/L 2010 Unknown COMPREHENSIVE METABOLIC 60765 SODIUM 139 MMOL/L 11/11 Unknown COMPREHENSIVE METABOLIC 68418 CREATININE 1.00 MG/DL 11/2010 Unknown COMPREHENSIVE METABOLIC 85072 CALCIUM 9.5 MG/DL 2010 Unknown COMPREHENSIVE METABOLIC 02712 POTASSIUM 4.5 MMOL/L 11/11 Unknown COMPREHENSIVE METABOLIC 34913 PROT TOT 6.9 GM/DL 2010 Unknown COMPREHENSIVE METABOLIC 13827 Glucose 111 MG/DL 2010 Unknown COMPREHENSIVE METABOLIC 73033 BICARB 26 MMOL/L 2010 Unknown COMPREHENSIVE METABOLIC 03636 ANION GAP 7 MEQ/L 2010 Unknown HEMOGLOBIN A1C (GLYCOSYLATED) 00717 A1C HPLC 89750-5 5.6 % 07/24/2010 Unknown GFR CALC 7575891 GFR AA >60 ML/MIN 07/23/2010 Unknown GFR CALC 5764588 GFR NON-AA >60 ML/MIN 07/23/2010 Unknown COMPREHENSIVE METABOLIC 60823 AST 19 U/L 2010 Unknown COMPREHENSIVE METABOLIC 16330 ALT 33 IU/L 2010 Unknown COMPREHENSIVE METABOLIC 17649 BUN 14 MG/DL 2010 Unknown COMPREHENSIVE METABOLIC 44333 ALBUMIN 4.7 GM/DL 2010 Unknown COMPREHENSIVE METABOLIC 91439 CHLORIDE 107 MMOL/L 07/23 Unknown COMPREHENSIVE METABOLIC 67507 BILI TOT 0.4 MG/DL 2010 Unknown COMPREHENSIVE METABOLIC 87311 ALK PHOS 80 U/L 2010 Unknown COMPREHENSIVE METABOLIC 94763 SODIUM 141 MMOL/L 07/23 Unknown COMPREHENSIVE METABOLIC 21819 CREATININE 0.97 MG/DL 07/05 Unknown COMPREHENSIVE METABOLIC 92444 CALCIUM 9.5 MG/DL 2010 Unknown COMPREHENSIVE METABOLIC 12926 POTASSIUM 4.1 MMOL/L 07/23 Unknown COMPREHENSIVE METABOLIC 86045 PROT TOT 6.8 GM/DL 2010 Unknown COMPREHENSIVE METABOLIC 45895 Glucose 120 MG/DL 2010 Unknown COMPREHENSIVE METABOLIC 47477 BICARB 26 MMOL/L 2010 Unknown COMPREHENSIVE METABOLIC 65068 ANION GAP 8 MEQ/L 2010 Unknown LIPID GROUP 36896 HDL TEST 41 MG/DL 07/23/2010 Unknown LIPID GROUP 80792 TRIG 175 MG/DL 07/23/2010 Unknown LIPID GROUP 41162 TEST LDL 72 MG/DL 07/23/2010 Unknown LIPID GROUP 67686 CHOL 148 MG/DL 07/23/2010 Unknown LIPID GROUP 21028 RCHOL/HDL 3.61 RATIO 07/23/2010 Unknow n PSA FREE AND TOTAL 51318|22126 % FREE PSA FOOTNOTE % 011 Unknown PSA FREE AND TOTAL 04573|66505 XPSA TOTAL 0.83 NG/ML 011 Unknown PSA FREE AND TOTAL 91138|89401 XPSA FREE 0.13 NG/ML 04/26/19 11 Unknown VITAMIN D TOTAL (25 HYDROXY) 92454 VIT D TOTL 26 NG/ML 04/22/2010 Unknown TESTOSTERONE TOTAL 33466 TESTOS TO 387 NG/DL 04/19/2010 Unknown GFR CALC 4622365 GFR AA >60 ML/MIN 04/19/2010 Unknown GFR CALC 0188737 GFR NON-AA >60 ML/MIN 04/19/2010 Unknown COMPLETE BLOOD COUNT 20706 WBC 7.0 10e9/L 04/19/19 11 Unknown COMPLETE BLOOD COUNT 80425 RBC 5.07 10e12/L 2010 Unknown COMPLETE BLOOD COUNT 03279 HGB 15.6 g/dL 1 Unknown COMPLETE BLOOD COUNT 63529 HCT DET 46.2 % 1 Unknown COMPLETE BLOOD COUNT 44799 MCV 91.1 fL 1 Unknown COMPLETE BLOOD COUNT 65571 MCH 30.8 pg 1 Unknown COMPLETE BLOOD COUNT 41589 MCHC 33.8 g/dL 1 Unknown COMPLETE BLOOD COUNT 21227 PLT 205 10e9/L 04/19/19 11 Unknown COMPLETE BLOOD COUNT 10398 MPV 11.1 fL 1 Unknown COMPLETE BLOOD COUNT 86865 SAMIR % 62.4 % 1 Unknown COMPLETE BLOOD COUNT 58290 LY % 28.5 % 1 Unknown COMPLETE BLOOD COUNT 23691 MON % 6.9 % 1 Unknown COMPLETE BLOOD COUNT 33091 EOS % 2.1 % 1 Unknown COMPLETE BLOOD COUNT 98728 BASO % 0.1 % 1 Unknown COMPLETE BLOOD COUNT 31891 RDW 13.4 % 1 Unknown COMPLETE BLOOD COUNT 80842 ABS SAMIR 4.37 10e9/L 011 Unknown COMPLETE BLOOD COUNT 56293 ABS LYMPH 2.00 10e9/L 011 Unknown COMPLETE BLOOD COUNT 76098 ABS MONO 0.48 10e9/L 011 Unknown COMPLETE BLOOD COUNT 27316 ABS EOS 0.15 10e9/L 011 Unknown COMPLETE BLOOD COUNT 48035 ABS BASO 0.01 10e9/L 011 Unknown COMPLETE BLOOD COUNT 70382 RDW-SD 43.8 fL 1 Unknown LIPID GROUP 77846 HDL TEST 39 MG/DL 04/19/2010 Unknown LIPID GROUP 61200 TRIG 244 MG/DL 04/19/2010 Unknown LIPID GROUP 46791 TEST LDL 168 MG/DL 04/19/2010 Unknown LIPID GROUP 63008 CHOL 256 MG/DL 04/19/2010 Unknown LIPID GROUP 75252 RCHOL/HDL 6.56 RATIO 04/19/2010 Unknow n COMPREHENSIVE METABOLIC 37187 AST 28 U/L 2010 Unknown COMPREHENSIVE METABOLIC 05068 ALT 46 IU/L 2010 Unknown COMPREHENSIVE METABOLIC 05799 BUN 14 MG/DL 2010 Unknown COMPREHENSIVE METABOLIC 82117 ALBUMIN 4.9 GM/DL 2010 Unknown COMPREHENSIVE METABOLIC 76168 CHLORIDE 104 MMOL/L 04/19 Unknown COMPREHENSIVE METABOLIC 70871 BILI TOT 0.8 MG/DL 2010 Unknown COMPREHENSIVE METABOLIC 76893 ALK PHOS 71 U/L 2010 Unknown COMPREHENSIVE METABOLIC 36610 SODIUM 139 MMOL/L 04/19 Unknown COMPREHENSIVE METABOLIC 56907 CREATININE 1.06 MG/DL 04/06 Unknown COMPREHENSIVE METABOLIC 35360 CALCIUM 9.9 MG/DL 2010 Unknown COMPREHENSIVE METABOLIC 73539 POTASSIUM 4.3 MMOL/L 04/19 Unknown COMPREHENSIVE METABOLIC 73495 PROT TOT 7.2 GM/DL 2010 Unknown COMPREHENSIVE METABOLIC 15277 Glucose 99 MG/DL 2010 Unknown COMPREHENSIVE METABOLIC 05020 BICARB 28 MMOL/L 2010 Unknown COMPREHENSIVE METABOLIC 61498 ANION GAP 7 MEQ/L 2010 Unknown FREE T4 32587 FREE T4 1.26 NG/DL 04/19/2010 Unknown Procedures Procedure Codes Date ROUTINE VENIPUNCTURE CPT-4: 69994 08/24/2019 COMPREHEN METABOLIC PANEL CPT-4: 73611 08/24/2019 A1C HPLC CPT-4: 44830 08/24/2019 ROUTINE VENIPUNCTURE CPT-4: 72845 05/24/2019 COMPREHEN METABOLIC PANEL CPT-4: 17929 05/24/2019 A1C HPLC CPT-4: 35510 05/24/2019 FLU VACC PRSV FREE INC ANTIG 65 AND OLDER CPT-4: 73854 01/26/2019 FLU VACC PRSV FREE INC ANTIG 65 AND OLDER CPT-4: 11259 01/26/2019 ADMIN INFLUENZA VIRUS VAC CPT-4: G0008 01/26/2019 ROUTINE VENIPUNCTURE CPT-4: 69414 01/26/2019 COMPREHEN METABOLIC PANEL CPT-4: 23811 01/26/2019 COMPLETE CBC W/AUTO DIFF WBC CPT-4: 95784 01/26/2019 LIPID PANEL CPT-4: 06516 01/26/2019 A1C HPLC CPT-4: 73726 01/26/2019 ROUTINE VENIPUNCTURE CPT-4: 24469 09/30/2018 METABOLIC PANEL TOTAL CA CPT-4: 87005 09/30/2018 URINALYSIS NONAUTO W/O SCOPE CPT-4: 93195 08/19/2018 URINE CULTURE/ COLONY COUNT CPT-4: 76841 08/19/2018 MICROALBUMIN QUANTITATIVE CPT-4: 12080 08/19/2018 ROUTINE VENIPUNCTURE CPT-4: 27317 08/16/2018 ASSAY THYROID STIM HORMONE CPT-4: 67161 08/16/2018 COMPREHEN METABOLIC PANEL CPT-4: 09619 08/16/2018 COMPLETE CBC W/AUTO DIFF WBC CPT-4: 64761 08/16/2018 LIPID PANEL CPT-4: 28454 08/16/2018 A1C HPLC CPT-4: 75802 08/16/2018 LIPID PANEL CPT-4: 54755 05/05/2018 COMPREHEN METABOLIC PANEL CPT-4: 65252 05/05/2018 ROUTINE VENIPUNCTURE CPT-4: 23857 05/05/2018 A1C HPLC CPT-4: 15562 05/05/2018 COMPLETE CBC W/AUTO DIFF WBC CPT-4: 25193 05/05/2018 ASSAY THYROID STIM HORMONE CPT-4: 64804 05/05/2018 MICROALBUMIN QUANTITATIVE CPT-4: 08329 01/19/2018 PRESCRIP TRANSMIT VIA ERX SY CPT-4: G8553 01/19/2018 ROUTINE VENIPUNCTURE CPT-4: 51667 01/13/2018 COMPREHEN METABOLIC PANEL CPT-4: 79760 01/13/2018 A1C HPLC CPT-4: 70270 01/13/2018 LIPID PANEL CPT-4: 45978 01/13/2018 ASSAY OF PSA TOTAL CPT-4: 46687 01/13/2018 ASSAY THYROID STIM HORMONE CPT-4: 97174 01/13/2018 ROUTINE VENIPUNCTURE CPT-4: 03530 10/06/2017 COMPREHEN METABOLIC PANEL CPT-4: 25143 10/06/2017 COMPLETE CBC W/AUTO DIFF WBC CPT-4: 29584 10/06/2017 LIPID PANEL CPT-4: 08864 10/06/2017 A1C HPLC CPT-4: 57377 10/06/2017 VITAMIN B-12 CPT-4: 58277 10/06/2017 DESTRUCT PREMALG LESION (Cryosurgery) CPT-4: 17302 DESTRUCT PREMALG LES 2-14 CPT-4: 28967 04/23/2017 PRESCRIP TRANSMIT VIA ERX SY CPT-4: G8553 03/11/2017 ROUTINE VENIPUNCTURE CPT-4: 77482 03/05/2017 ASSAY OF FREE THYROXINE CPT-4: 81679 03/05/2017 ASSAY THYROID STIM HORMONE CPT-4: 54359 03/05/2017 COMPREHEN METABOLIC PANEL CPT-4: 04695 03/05/2017 COMPLETE CBC W/AUTO DIFF WBC CPT-4: 10783 03/05/2017 LIPID PANEL CPT-4: 09711 03/05/2017 A1C HPLC CPT-4: 06607 03/05/2017 ROUTINE VENIPUNCTURE CPT-4: 12440 06/16/2016 ASSAY OF FREE THYROXINE CPT-4: 03295 06/16/2016 ASSAY THYROID STIM HORMONE CPT-4: 02009 06/16/2016 COMPREHEN METABOLIC PANEL CPT-4: 75713 06/16/2016 COMPLETE CBC W/AUTO DIFF WBC CPT-4: 01388 06/16/2016 LIPID PANEL CPT-4: 24071 06/16/2016 A1C HPLC CPT-4: 21402 06/16/2016 ROUTINE VENIPUNCTURE CPT-4: 92953 03/06/2016 ASSAY OF FREE THYROXINE CPT-4: 65311 03/06/2016 ASSAY THYROID STIM HORMONE CPT-4: 19651 03/06/2016 COMPREHEN METABOLIC PANEL CPT-4: 89373 03/06/2016 COMPLETE CBC W/AUTO DIFF WBC CPT-4: 54946 03/06/2016 LIPID PANEL CPT-4: 93644 03/06/2016 A1C HPLC CPT-4: 91543 03/06/2016 PRESCRIP TRANSMIT VIA ERX SY CPT-4: G8553 09/10/2015 PNEUMOCOCCAL VACC 23 ROSANNE IM CPT-4: 75861 09/06/2015 ADMIN PNEUMOCOCCAL VACCINE CPT-4: G0009 09/06/2015 ROUTINE VENIPUNCTURE CPT-4: 16481 08/31/2015 COMPREHEN METABOLIC PANEL CPT-4: 43111 08/31/2015 COMPLETE CBC W/AUTO DIFF WBC CPT-4: 11650 08/31/2015 LIPID PANEL CPT-4: 94574 08/31/2015 ASSAY OF PSA TOTAL CPT-4: 67043 08/31/2015 A1C HPLC CPT-4: 42883 08/31/2015 ASSAY OF FREE THYROXINE CPT-4: 30351 08/31/2015 ASSAY THYROID STIM HORMONE CPT-4: 68543 08/31/2015 PRESCRIP TRANSMIT VIA ERX SY CPT-4: G8553 06/29/2015 FLU VACC PRSV FREE INC ANTIG 65 AND OLDER CPT-4: 30570 01/17/2015 PNEUMOCOCCAL VACC 13 ROSANNE IM CPT-4: 02723 01/17/2015 ADMIN INFLUENZA VIRUS VAC CPT-4: G0008 01/17/2015 ADMIN PNEUMOCOCCAL VACCINE CPT-4: G0009 01/17/2015 DESTRUCT PREMALG LESION (Cryosurgery) CPT-4: 80824 PRESCRIP TRANSMIT VIA ERX SY CPT-4: G8553 01/17/2015 ROUTINE VENIPUNCTURE CPT-4: 08150 01/12/2015 COMPREHEN METABOLIC PANEL CPT-4: 65820 01/12/2015 COMPLETE CBC W/AUTO DIFF WBC CPT-4: 26657 01/12/2015 LIPID PANEL CPT-4: 14432 01/12/2015 A1C HPLC CPT-4: 80777 01/12/2015 DESTRUCT PREMALG LESION (Cryosurgery) CPT-4: 75155 ROUTINE VENIPUNCTURE CPT-4: 86380 08/15/2014 COMPREHEN METABOLIC PANEL CPT-4: 81731 08/15/2014 COMPLETE CBC W/AUTO DIFF WBC CPT-4: 05406 08/15/2014 LIPID PANEL CPT-4: 77056 08/15/2014 A1C HPLC CPT-4: 85705 08/15/2014 ASSAY OF PSA TOTAL CPT-4: [id number] 08/15/2014 ASSAY OF FREE THYROXINE CPT-4: 92091 08/15/2014 ASSAY THYROID STIM HORMONE CPT-4: 08862 08/15/2014 ROUTINE VENIPUNCTURE CPT-4: 70627 12/14/2013 ASSAY OF FREE THYROXINE CPT-4: 83079 12/14/2013 ASSAY THYROID STIM HORMONE CPT-4: 75661 12/14/2013 COMPREHEN METABOLIC PANEL CPT-4: 63170 12/14/2013 COMPLETE CBC W/AUTO DIFF WBC CPT-4: 92237 12/14/2013 LIPID PANEL CPT-4: 35131 12/14/2013 A1C HPLC CPT-4: 03967 12/14/2013 ROUTINE VENIPUNCTURE CPT-4: 42685 06/08/2013 ASSAY OF FREE THYROXINE CPT-4: 29332 06/08/2013 ASSAY THYROID STIM HORMONE CPT-4: 46981 06/08/2013 COMPREHEN METABOLIC PANEL CPT-4: 10865 06/08/2013 COMPLETE CBC W/AUTO DIFF WBC CPT-4: 70040 06/08/2013 LIPID PANEL CPT-4: 49232 06/08/2013 A1C HPLC CPT-4: 17339 06/08/2013 ROUTINE VENIPUNCTURE CPT-4: 18361 11/11/2012 COMPREHEN METABOLIC PANEL CPT-4: 85482 11/11/2012 COMPLETE CBC W/AUTO DIFF WBC CPT-4: 31092 11/11/2012 LIPID PANEL CPT-4: 15813 11/11/2012 A1C GLYCOSYLATED HEMOGLOBIN TEST CPT-4: 46359 013 ASSAY THYROID STIM HORMONE CPT-4: 58778 11/11/2012 ROUTINE VENIPUNCTURE CPT-4: 83824 05/04/2012 ASSAY OF FREE THYROXINE CPT-4: 85443 05/04/2012 ASSAY THYROID STIM HORMONE CPT-4: 41646 05/04/2012 COMPREHEN METABOLIC PANEL CPT-4: 78141 05/04/2012 COMPLETE CBC W/AUTO DIFF WBC CPT-4: 82372 05/04/2012 LIPID PANEL CPT-4: 36962 05/04/2012 DESTRUCT PREMALG LESION (Cryosurgery) CPT-4: 76915 DESTRUCT PREMALG LES 2-14 CPT-4: 15206 03/02/2012 ROUTINE VENIPUNCTURE CPT-4: 01024 10/29/2011 COMPREHEN METABOLIC PANEL CPT-4: 09796 10/29/2011 LIPID PANEL CPT-4: 53556 10/29/2011 A1C GLYCOSYLATED HEMOGLOBIN TEST CPT-4: 82830 012 ROUTINE VENIPUNCTURE CPT-4: 80230 07/29/2011 COMPREHEN METABOLIC PANEL CPT-4: 84549 07/29/2011 LIPID PANEL CPT-4: 68355 07/29/2011 A1C GLYCOSYLATED HEMOGLOBIN TEST CPT-4: 77468 012 ROUTINE VENIPUNCTURE CPT-4: 51395 03/14/2011 COMPREHEN METABOLIC PANEL CPT-4: 27575 03/14/2011 LIPID PANEL CPT-4: 48625 03/14/2011 A1C GLYCOSYLATED HEMOGLOBIN TEST CPT-4: 88038 011 ROUTINE VENIPUNCTURE CPT-4: 42788 11/11/2010 COMPREHEN METABOLIC PANEL CPT-4: 39804 11/11/2010 LIPID PANEL CPT-4: 18653 11/11/2010 URINE CULTURE/ COLONY COUNT CPT-4: 99351 11/11/2010 URINALYSIS NONAUTO W/O SCOPE CPT-4: 10835 10/29/2010 URINE CULTURE/ COLONY COUNT CPT-4: 77938 10/29/2010 LIPID PANEL CPT-4: 56426 07/23/2010 COMPREHEN METABOLIC PANEL CPT-4: 55497 07/23/2010 ROUTINE VENIPUNCTURE CPT-4: 01490 07/23/2010 ROUTINE VENIPUNCTURE CPT-4: 52837 04/26/2010 PSA FREE AND TOTAL CPT-4: 23498|91636 04/26/2010 OCCULT BLOOD FECES CPT-4: 52032 04/24/2010 ROUTINE VENIPUNCTURE CPT-4: 27848 04/19/2010 COMPLETE CBC W/AUTO DIFF WBC CPT-4: 38740 04/19/2010 COMPREHEN METABOLIC PANEL CPT-4: 14818 04/19/2010 LIPID PANEL CPT-4: 76892 04/19/2010 TESTOSTERONE TOTAL - MALE CPT-4: 58318 04/19/2010 ASSAY THYROID STIM HORMONE CPT-4: 86381 04/19/2010 ASSAY OF FREE THYROXINE CPT-4: 62797 04/19/2010 VITAMIN D TOTAL (25 HYDROXY) CPT-4: 95763 04/19/2010 Vital Signs Date Vital 08/30/2019 Blood Pressure 1: 144/76 Code: 8480-6 Heart Rate 1: 84 bpm Respiratory Rate: 20 bpm SpO2: 98% Temperature: 36.9 (C) / 98.4 (F) We ight: 240 lbs 06/02/2019 Blood Pressure 1: 132/80 Code: 8480-6 BMI: 29.5 Code: 65390-7 Heart Rate 1: 64 bpm Height: 6'3" [...] 1: 112/70 Code: 8480-6 BMI: 28.9 Code: 52425-8 Heart Rate 1: 60 bpm Height: 6'3" Respiratory Rate: 20 bpm SpO2: 95% Tempera ture: 36.6 (C) / 97.9 (F) Weight: 231 lbs 01/19/2018 Blood Pressure 1: 150/82 Code: 8480-6 Heart Rate 1: 63 bpm Respiratory Rate: 18 bpm SpO2: 98% Temperature: 36.0 (C) / 96.8 (F) We ight: 225 lbs 10/15/2017 Blood Pressure 1: 126/82 Code: 8480-6 BMI: 27.9 Code: 83049-6 Heart Rate 1: 64 bpm Height: 6'3" Respiratory Rate: 20 bpm SpO2: 96% Tempera ture: 36.7 (C) / 98.1 (F) Weight: 223 lbs 04/23/2017 Blood Pressure 1: 136/74 Code: 8480-6 BMI: 28.7 Code: 47978-9 Heart Rate 1: 76 bpm Height: 6'3" Respiratory Rate: 20 bpm Temperature: 37 .0 (C) / 98.6 (F) Weight: 230 lbs 03/11/2017 Blood Pressure 1: 136/66 Code: 8480-6 BMI: 28.6 Code: 13485-7 Heart Rate 1: 60 bpm Height: 6'3" Respiratory Rate: 20 bpm Temperature: 36 .7 (C) / 98.1 (F) Weight: 229 lbs 07/09/2016 Blood Pressure 1: 132/80 Code: 8480-6 BMI: 27.7 Code: 44220-6 Heart Rate 1: 64 bpm Height: 6'3" Respiratory Rate: 20 bpm SpO2: 96% Tempera ture: 36.9 (C) / 98.4 (F) Weight: 222 lbs 03/10/2016 Blood Pressure 1: 134/78 Code: 8480-6 BMI: 28.5 Code: 61247-8 Heart Rate 1: 60 bpm Height: 6'3" Respiratory Rate: 20 bpm SpO2: 96% Tempera ture: 36.7 (C) / 98.1 (F) Weight: 228 lbs 09/12/2015 Blood Pressure 1: 136/78 Code: 8480-6 Heart Rate 1: 84 bpm Height: Respiratory Rate: 24 bpm SpO2: 97% Temperature: 36.4 (C) / 97.6 (F) We ight: 09/10/2015 Blood Pressure 1: 124/76 Code: 8480-6 BMI: 28.5 Code: 66191-4 Heart Rate 1: 76 bpm Height: 6'3" Respiratory Rate: 24 bpm SpO2: 97% Tempera ture: 36.4 (C) / 97.6 (F) Weight: 228 lbs 09/06/2015 Blood Pressure 1: 124 Code: 8480-6 BMI: 29.0 Code: 71714-5 Heart Rate 1: 66 bpm Height: 6'3" Respiratory Rate: 20 bpm SpO2: 97% Tempera ture: 36.4 (C) / 97.6 (F) Weight: 232 lbs 06/29/2015 Blood Pressure 1: 12482 Code: 8480-6 Heart Rate 1: 88 bpm Height: Respiratory Rate: 20 bpm Temperature: 36.7 (C) / 98.1 (F) Weight: 01/17/2015 Blood Pressure 1: 124 Code: 8480-6 BMI: 27.7 Code: 70248-0 Heart Rate 1: 76 bpm Height: 6'3" Respiratory Rate: 20 bpm Temperature: 36 .6 (C) / 97.8 (F) Weight: 222 lbs 09/19/2014 Blood Pressure 1: 12880 Code: 8480-6 BMI: 27.4 Code: 88839-4 Heart Rate 1: 64 bpm Height: 6'3" Respiratory Rate: 20 bpm Temperature: 36 .4 (C) / 97.6 (F) Weight: 219 lbs 10/17/2013 Blood Pressure 1: 11670 Code: 8480-6 Heart Rate 1: 88 bpm Respiratory Rate: 20 bpm Temperature: 36.9 (C) / 98.4 (F) Weight: 220 lbs 09/23/2013 Blood Pressure 1: 12480 Code: 8480-6 BMI: 28.7 Code: 36141-9 Heart Rate 1: 76 bpm Height: 6'3" Respiratory Rate: 20 bpm Temperature: 36 .8 (C) / 98.2 (F) Weight: 230 lbs 07/22/2013 Blood Pressure 1: 128/70 Code: 8480-6 He art Rate 1: 78 bpm 06/20/2013 Blood Pressure 1: 144/86 Code: 8480-6 BMI: 28.7 Code: 86173-8 Heart Rate 1: 92 bpm Height: 6'3" Respiratory Rate: 20 bpm Temperature: 36 .4 (C) / 97.6 (F) Weight: 230 lbs 11/25/2012 Blood Pressure 1: 12880 Code: 8480-6 BMI: 27.5 Code: 63353-1 Heart Rate 1: 92 bpm Height: 6'3" Respiratory Rate: 20 bpm Temperature: 36 .8 (C) / 98.3 (F) Weight: 220 lbs 08/27/2012 Blood Pressure 1: 142/80 Code: 8480-6 BMI: 27.7 Code: 10803-0 Heart Rate 1: 76 bpm Height: 6'3" Respiratory Rate: 20 bpm Temperature: 36 .8 (C) / 98.3 (F) Weight: 222 lbs 05/11/2012 Blood Pressure 1: 136/80 Code: 8480-6 BMI: 27.7 Code: 72301-8 Heart Rate 1: 76 bpm Height: 6'3" Respiratory Rate: 20 bpm Temperature: 36 .8 (C) / 98.3 (F) Weight: 222 lbs 03/02/2012 Blood Pressure 1: 136/70 Code: 8480-6 BMI: 28.0 Code: 63048-6 Heart Rate 1: 80 bpm Height: 6'3" Respiratory Rate: 20 bpm Temperature: 36 .6 (C) / 97.8 (F) Weight: 224 lbs 12/11/2011 Blood Pressure 1: 142/80 Code: 8480-6 BMI: 27.1 Code: 93979-8 Heart Rate 1: 84 bpm Height: 6'3" Respiratory Rate: 20 bpm Temperature: 36 .9 (C) / 98.4 (F) Weight: 217 lbs 08/14/2011 Blood Pressure 1: 130/82 Code: 8480-6 He art Rate 1: 64 bpm 07/29/2011 Blood Pressure 1: 132/64 Code: 8480-6 BMI: 26.7 Code: 18955-7 Heart Rate 1: 72 bpm Height: 6'3" [...] 1: 142/88 Code: 8480-6 BMI: 26.4 Code: 91708-2 Heart Rate 1: 80 bpm Height: 6'3" [...] labs Encounters Encounter Performer Location Codes Date ([id number]) OFFICE/OUTPATIENT VISIT EST Diagnosis: Type 2 diabetes mellitus with hyperglycemia[ICD10: E11.65] Diagnosis: Essential hypertension[ICD10: I10] Diagnosis: Stress reaction[ICD10: F43.0] Najma Heverlane ABBOTTNAJMA [employer] CPT-4: 77839 08/30/2019 ([id number]) NURSE/OUTPATIENT VISIT EST Diagnosis: Essential (primary) hypertension[ICD10: I10] Diagnosis: Type 2 diabetes mellitus with hyperglycemia[ICD10: E11.65] Najma HeverpepperKimble NAJMA [employer] CPT-4: 76541 08/24/2019 ([id number]) OFFICE/OUTPATIENT VISIT EST Diagnosis: Essential (primary) hypertension[ICD10: I10] Diagnosis: Gastro-esophageal reflux disease without esophagitis[ICD10: K21.9] Diagnosis: Type 2 diabetes mellitus with hyperglycemia[ICD10: E11.65] Najma Heverlane MCARTHUR [employer] CPT-4: 44879 06/02/2019 ([id number]) NURSE/OUTPATIENT VISIT EST Diagnosis: Type 2 diabetes mellitus without complications[ICD10: E11.9] Diagnosis: Essential (primary) hypertension[ICD10: I10] Diagnosis: Mixed hyperlipidemia[ICD10: E78.2] Najma GODINEZ [employer] [facility] [employer] CPT-4: 36339 05/24/2019 ([id number]) OFFICE/OUTPATIENT VISIT EST Diagnosis: Essential (primary) hypertension[ICD10: I10] Diagnosis: Type 2 diabetes mellitus without complications[ICD10: E11.9] Diagnosis: Mixed hyperlipidemia[ICD10: E78.2] Najma GODINEZ [employer] SAMSONEnevoBIJAN [employer] CPT-4: 03799 01/31/2019 ([id number]) NURSE/OUTPATIENT VISIT EST Diagnosis: Mixed hyperlipidemia[ICD10: E78.2] Diagnosis: Type 2 diabetes mellitus without complications[ICD10: E11.9] Diagnosis: Essential (primary) hypertension[ICD10: I10] Diagnosis: Chronic kidney disease, unspecified[ICD10: N18.9] Najma SAMSONEnevoBIJAN [employer] CPT-4: 25052 01/26/2019 ([id number]) NURSE/OUTPATIENT VISIT EST Diagnosis: Chronic kidney disease, unspecified[ICD10: N18.9] Diagnosis: Essential (primary) hypertension[ICD10: I10] Najma SAMSONEnevoBIJAN [employer] CPT-4: 06711 09/30/2018 ([id number]) OFFICE/OUTPATIENT VISIT EST Diagnosis: Essential (primary) hypertension[ICD10: I10] Diagnosis: Type 2 diabetes mellitus without complications[ICD10: E11.9] Diagnosis: Mixed hyperlipidemia[ICD10: E78.2] Diagnosis: Unspecified kidney failure[ICD10: N19] Najma [employer] CPT-4: 20783 08/19/2018 ([id number]) NURSE/OUTPATIENT VISIT EST Diagnosis: Essential (primary) hypertension[ICD10: I10] Diagnosis: Type 1 diabetes mellitus with unspecified complications[ICD10: E10.8] Diagnosis: Mixed hyperlipidemia[ICD10: E78.2] Najma GODINEZ [employer] CPT-4: 28314 08/16/2018 ([id number]) OFFICE/OUTPATIENT VISIT EST Diagnosis: Essential (primary) hypertension[ICD10: I10] Diagnosis: Type 2 diabetes mellitus without complications[ICD10: E11.9] Diagnosis: Mixed hyperlipidemia[ICD10: E78.2] Najma GODINEZ [employer] CPT-4: 79426 05/10/2018 ([id number]) NURSE/OUTPATIENT VISIT EST Diagnosis: Essential (primary) hypertension[ICD10: I10] Diagnosis: Mixed hyperlipidemia[ICD10: E78.2] Diagnosis: Type 1 diabetes mellitus with unspecified complications[ICD10: E10.8] Najma [employer] CPT-4: 00867 05/05/2018 ([id number]) OFFICE/OUTPATIENT VISIT EST Diagnosis: Type 2 diabetes mellitus without complications[ICD10: E11.9] Diagnosis: Mixed hyperlipidemia[ICD10: E78.2] Diagnosis: Nicotine dependence, unspecified, uncomplicated[ICD10: F17.200] Diagnosis: Essential (primary) hypertension[ICD10: I10] Najma MCARTHUR [employer] CPT-4: 12489 01/19/2018 ([id number]) NURSE/OUTPATIENT VISIT EST Diagnosis: Type 1 diabetes mellitus with unspecified complications[ICD10: E10.8] Diagnosis: Essential (primary) hypertension[ICD10: I10] Diagnosis: Male erectile disorder[ICD10: F52.21] Diagnosis: Encounter for screening for malignant neoplasm of prostate[ICD10: Z12.5] Najma [employer] CPT-4: 82132 01/13/2018 ([id number]) OFFICE/OUTPATIENT VISIT EST Diagnosis: Type 2 diabetes mellitus without complications[ICD10: E11.9] Diagnosis: Essential (primary) hypertension[ICD10: I10] Diagnosis: Mixed hyperlipidemia[ICD10: E78.2] Najma GODINEZ [employer] CPT-4: 11007 10/15/2017 ([id number]) NURSE/OUTPATIENT VISIT EST Diagnosis: Type 2 diabetes mellitus without complications[ICD10: E11.9] Diagnosis: Mixed hyperlipidemia[ICD10: E78.2] Diagnosis: Essential (primary) hypertension[ICD10: I10] Diagnosis: Glossitis[ICD10: K14.0] Najma THAKKAR [employer] [facility] CPT-4: 37399 10/06/2017 ([id number]) OFFICE/OUTPATIENT VISIT EST Diagnosis: Type 2 diabetes mellitus without complications[ICD10: E11.9] Diagnosis: Mixed hyperlipidemia[ICD10: E78.2] Diagnosis: Essential (primary) hypertension[ICD10: I10] Najma OG DO [facility] CPT-4: 35885 03/11/2017 ([id number]) OFFICE/OUTPATIENT VISIT EST Diagnosis: Type 1 diabetes mellitus with unspecified complications[ICD10: E10.8] Diagnosis: Mixed hyperlipidemia[ICD10: E78.2] Diagnosis: Essential (primary) hypertension[ICD10: I10] Diagnosis: Other fatigue[ICD10: R53.83] Najma OG [employer] [facility] CPT-4: 02457 03/05/2017 ([id number]) OFFICE/OUTPATIENT VISIT EST Diagnosis: Type 2 diabetes mellitus without complications[ICD10: E11.9] Diagnosis: Mixed hyperlipidemia[ICD10: E78.2] Diagnosis: Essential (primary) hypertension[ICD10: I10] Diagnosis: Nicotine dependence, unspecified, uncomplicated[ICD10: F17.200] Najma OG [employer] [facility] CPT-4: 93411 07/09/2016 ([id number]) OFFICE/OUTPATIENT VISIT EST Diagnosis: Type 1 diabetes mellitus with unspecified complications[ICD10: E10.8] Diagnosis: Mixed hyperlipidemia[ICD10: E78.2] Diagnosis: Essential (primary) hypertension[ICD10: I10] Najma OG [employer] [facility] CPT-4: 26215 06/16/2016 ([id number]) OFFICE/OUTPATIENT VISIT EST Diagnosis: Type 2 diabetes mellitus without complications[ICD10: E11.9] Diagnosis: Mixed hyperlipidemia[ICD10: E78.2] Diagnosis: Essential (primary) hypertension[ICD10: I10] Najma OG DO [facility] CPT-4: 35411 03/10/2016 ([id number]) OFFICE/OUTPATIENT VISIT EST Diagnosis: Type 1 diabetes mellitus with unspecified complications[ICD10: E10.8] Diagnosis: Mixed hyperlipidemia[ICD10: E78.2] Diagnosis: Essential (primary) hypertension[ICD10: I10] Najma Heverpepperbijan MANUELNAJMA Matilda OG [employer] [facility] CPT-4: 18207 03/06/2016 ([id number]) OFFICE/OUTPATIENT VISIT EST Diagnosis: Bitten or stung by nonvenomous insect and other nonvenomous arthropods, subsequent encounter[ICD10: W57.XXXD] Diagnosis: Insect bite (nonvenomous), right thigh, subsequent encounter[ICD10: S70.361D] Barbara MANUELLINE Matilda [employer] [facility] CPT-4: 80320 11/2015 ([id number]) OFFICE/OUTPATIENT VISIT EST Diagnosis: Bitten or stung by nonvenomous insect and other nonvenomous arthropods, initial encounter[ICD10: W57.XXXA] Diagnosis: Insect bite (nonvenomous), right thigh, initial encounter[ICD10: S70.361A] Barbara MANUELLINE Matilda LONGGuaranteach [facility] CPT-4: 36994 09/2015 ([id number]) OFFICE/OUTPATIENT VISIT EST Diagnosis: Mixed hyperlipidemia[ICD10: E78.2] Diagnosis: Essential (primary) hypertension[ICD10: I10] Diagnosis: Type 2 diabetes mellitus without complications[ICD10: E11.9] Diagnosis: Encounter for immunization[ICD10: Z23] Diagnosis: Encounter for screening for malignant neoplasm of colon[ICD10: Z12.11] Diagnosis: Abnormal weight gain[ICD10: R63.5] Barbara Brower MAREVELINA GRETCHEN Matilda [facility]ONGG[facility] CPT-4: 03176 09/06/2015 ([id number]) OFFICE/OUTPATIENT VISIT EST Diagnosis: Type 2 diabetes mellitus without complications[ICD10: E11.9] Diagnosis: Mixed hyperlipidemia[ICD10: E78.2] Diagnosis: Essential (primary) hypertension[ICD10: I10] Diagnosis: Encounter for screening for malignant neoplasm of prostate[ICD10: Z12.5] Diagnosis: Other fatigue[ICD10: R53.83] Najma MCARTHUR Matilda [employer] [facility] CPT-4: 65842 08/31/2015 OFFICE/OUTPATIENT VISIT EST Diagnosis: Diarrhea, unspecified[ICD10: R19.7] Henrietta MANUELLisette OG DO [facility] CPT-4: 60207 06/29/2015 OFFICE/OUTPATIENT VISIT EST Diagnosis: PNEUMOCOCCAL VACCINE[ICD10: Z23] Diagnosis: FLU VACCINE[ICD10: Z23] Diagnosis: Essential (primary) hypertension[ICD10: I10] Diagnosis: Mixed hyperlipidemia[ICD10: E78.2] Diagnosis: Type 1 diabetes mellitus with unspecified complications[ICD10: E10.8] Diagnosis: Actinic keratosis[ICD10: L57.0] Najma OG [facility] CPT-4: 23227 01/17/2015 ([id number]) OFFICE/OUTPATIENT VISIT EST Diagnosis: Type 2 diabetes mellitus without complications[ICD10: E11.9] Diagnosis: Impaired fasting glucose[ICD10: R73.01] Diagnosis: Mixed hyperlipidemia[ICD10: E78.2] Diagnosis: Essential (primary) hypertension[ICD10: I10] Najma Heverpepperbijan ABBOTTNAJMA Matilda [facility] CPT-4: 32634 01/12/2015 ([id number]) OFFICE/OUTPATIENT VISIT EST Diagnosis: - I - HYPERLIPIDEMIA NEC/NOS[ICD9: 272.4] Diagnosis: HYPERTENSION[ICD9: 401.9] Diagnosis: DM W/O COMPLICATION TYPE II[ICD9: 250.00] Diagnosis: ACTINIC KERATOSIS[ICD9: 702.0] Najma Earle ABBOTTQUELINE Ameena [facility] CPT-4: 99346 09/19/2014 ([id number]) OFFICE/OUTPATIENT VISIT EST Diagnosis: HYPERLIPIDEMIA NEC/NOS[ICD9: 272.4] Diagnosis: HYPERTENSION[ICD9: 401.9] Diagnosis: IMPAIRED FASTING GLUCOSE[ICD9: 790.21] Diagnosis: MALAISE AND FATIGUE[ICD9: 780.79] Najma Heverlane Jenkins Matilda [facility] CPT-4: 22745 08/15/2014 ([id number]) OFFICE/OUTPATIENT VISIT EST Diagnosis: HYPERLIPIDEMIA NEC/NOS[ICD9: 272.4] Diagnosis: HYPERTENSION[ICD9: 401.9] Diagnosis: IMPAIRED FASTING GLUCOSE[ICD9: 790.21] Najma CHAPMAN Matilda OG [facility] CPT-4: 73868 12/14/2013 ([id number]) OFFICE/OUTPATIENT VISIT EST Diagnosis: Post herpetic neuralgia[ICD9: 053.19] Najma ARCE CECILIA LindquistMatilde [facility] CPT-4: 90329 10/17/2013 OFFICE/OUTPATIENT VISIT EST Diagnosis: Shingles[ICD9: 053.9] Diagnosis: Post herpetic neuralgia[ICD9: 053.19] Jeanie Briceño SCARDELTA LindquistMatilde [facility] CPT-4: 25166 09/23/2013 ([id number]) OFFICE/OUTPATIENT VISIT EST Diagnosis: HYPERTENSION[ICD9: 401.9] Diagnosis: HYPERLIPIDEMIA NEC/NOS[ICD9: 272.4] Diagnosis: IMPAIRED FASTING GLUCOSE[ICD9: 790.21] Najma Longbijan ABBOTTQ ADELA OG [employer] [facility] CPT-4: 19919 06/20/2013 ([id number]) OFFICE/OUTPATIENT VISIT EST Diagnosis: HYPERLIPIDEMIA NEC/NOS[ICD9: 272.4] Diagnosis: MALAISE AND FATIGUE[ICD9: 780.79] Diagnosis: ROUTINE MEDICAL EXAM[ICD9: V70.0] Diagnosis: HYPERTENSION[ICD9: 401.9] Diagnosis: IMPAIRED FASTING GLUCOSE[ICD9: 790.21] Najma HAQUE ADELA OG [employer] [facility] CPT-4: 77502 06/08/2013 ([id number]) OFFICE/OUTPATIENT VISIT EST Diagnosis: HYPERLIPIDEMIA NEC/NOS[ICD9: 272.4] Diagnosis: HYPERTENSION[ICD9: 401.9] Diagnosis: IMPAIRED FASTING GLUCOSE[ICD9: 790.21] Diagnosis: DIARRHEA[ICD9: 787.91] Najma MCARTHUR AmeenaMatilde BRITTNI Stallings [employer] [facility] CPT-4: 64954 11/25/2012 ([id number]) OFFICE/OUTPATIENT VISIT EST Diagnosis: HYPERLIPIDEMIA NEC/NOS[ICD9: 272.4] Diagnosis: HYPERTENSION[ICD9: 401.9] Diagnosis: IMPAIRED FASTING GLUCOSE[ICD9: 790.21] Diagnosis: MALAISE AND FATIGUE[ICD9: 780.79] Najma Jenkins mAeenaMatilde EARLE [employer] [facility] CPT-4: 32618 11/11/2012 OFFICE/OUTPATIENT VISIT EST Diagnosis: Fungal dermatitis[ICD9: 111.9] Diagnosis: Dry skin dermatitis[ICD9: 692.89] Henriettafan Lubin FILI OG DO [facility] CPT-4: 79397 08/27/2012 ([id number]) OFFICE/OUTPATIENT VISIT EST Diagnosis: HYPERTENSION[ICD9: 401.9] Diagnosis: HYPERLIPIDEMIA NEC/NOS[ICD9: 272.4] Najma OG DO [facility] CPT-4: 55736 05/11/2012 ([id number]) OFFICE/OUTPATIENT VISIT EST Diagnosis: HYPERLIPIDEMIA NEC/NOS[ICD9: 272.4] Diagnosis: HYPERTENSION[ICD9: 401.9] Diagnosis: ROUTINE MEDICAL EXAM[ICD9: V70.0] Najma OG DO [facility] CPT-4: 37608 05/04/2012 ([id number]) OFFICE/OUTPATIENT VISIT EST Diagnosis: HYPERTENSION[ICD9: 401.9] Diagnosis: HYPERLIPIDEMIA NEC/NOS[ICD9: 272.4] Diagnosis: IMPAIRED FASTING GLUCOSE[ICD9: 790.21] Najma OG DO [facility] CPT-4: 18925 12/11/2011 ([id number]) OFFICE/OUTPATIENT VISIT EST Diagnosis: HYPERLIPIDEMIA NEC/NOS[ICD9: 272.4] Diagnosis: HYPERTENSION[ICD9: 401.9] Diagnosis: IMPAIRED FASTING GLUCOSE[ICD9: 790.21] Najma SAMSONNDER [facility] CPT-4: 94538 10/29/2011 ([id number]) OFFICE/OUTPATIENT VISIT EST Diagnosis: HYPERTENSION[ICD9: 401.9] Najma PAYAN DO [facility] CPT-4: 04890 08/14/2011 ([id number]) OFFICE/OUTPATIENT VISIT EST Diagnosis: HYPERTENSION[ICD9: 401.9] Diagnosis: IMPAIRED FASTING GLUCOSE[ICD9: 790.21] Najma SAMSONNDER [facility] CPT-4: 73085 07/29/2011 ([id number]) OFFICE/OUTPATIENT VISIT EST Diagnosis: HYPERTENSION[ICD9: 401.9] Najma SAMSON NDER DO [facility] CPT-4: 61347 07/23/2011 ([id number]) OFFICE/OUTPATIENT VISIT EST Diagnosis: HYPERTENSION[ICD9: 401.9] Najma SAMSON NDER DO [facility] CPT-4: 72814 06/24/2011 OFFICE/OUTPATIENT VISIT EST Diagnosis: HYPERTENSION[ICD9: 401.9] Najma SAMSON [facility] CPT-4: 51676 05/20/2011 OFFICE/OUTPATIENT VISIT EST Diagnosis: HYPERTENSION[ICD9: 401.9] Najma SAMSON NDER DO [facility] CPT-4: 56811 04/15/2011 OFFICE/OUTPATIENT VISIT EST Diagnosis: HYPERLIPIDEMIA NEC/NOS[ICD9: 272.4] Diagnosis: IMPAIRED FASTING GLUCOSE[ICD9: 790.21] Najma SAMSONNDER [employer] CPT-4: 83434 03/18/2011 ([id number]) OFFICE/OUTPATIENT VISIT EST Najma LONGER [employer] CPT-4: 17880 07/30/2010 ([id number]) PREV VISIT, EST, AGE 40-64 Najma OG DO [employer] CPT-4: 62305 04/24/2010 Plan of Care Planned Activity Notes Codes Status Date Appointment: Najma Og WPtel: [address] [place], [place] [id number] US CANCELED 09/01/2019 Visit Diagnosis Plan: Type [...] : I10 08/30/2019 Appointment: Naj[facility] Og [facility]el[facility] [phone] [facility] [place] [place] FOLLOW UP 08/30/2019 Patient Education: escitalopram oxalate- [employer] Co upon [id number] [email or web address] Completed 08/30/2019 Appointment: Najma Og WPtel: [address] [place] [address] US LAB 08/24/2019 Visit Diagnosis Plan: Type [...] : K21.9 06/02/2019 Appointment: Najma Og WPtel: [address] [place] [address] US FOLLOW UP 06/02/2019 Appointment: Najma Og WPtel: [address] [place], [place] [phone] US LAB 05/24/2019 Visit Diagnosis Plan: Essential [...] : E78.2 01/31/2019 Appointment: Najma Og WPtel: [address] [place] [address] US FOLLOW UP 01/31/2019 Appointment: Najma Og WPtel: [address] [place] [address] US LAB 01/26/2019 Appointment: Najma Og WPtel: [address] [place] [address] US LAB 09/30/2018 Visit Diagnosis Plan: Unspecified [...] : E11.9 08/19/2018 Appointment: Najma Og WPtel: [address] [place] [address] US FOLLOW UP 08/19/2018 Appointment: Najma Og WPtel: [address] [place] [address] US LAB 08/16/2018 Visit Diagnosis Plan: Essential [...] 272.4 ICD-10 : E78.2 05/10/2018 Appointment: Najma Ogtel: [address] [place] [address] US FOLLOW UP 05/10/2018 Patient Education: Low Back Pain Exercises: Illustration Completed 05/10/2018 Patient Education: Low Back Pain Exercises Completed 05/10/2018 Appointment: Najma Og: [address] [place], [place] [id number] US LAB 05/05/2018 Visit Diagnosis Plan: Type [...] : E78.2 01/19/2018 Appointment: Najma Og WPtel: [address] [place], [place] [phone] FOLLOW UP 01/19/2018 Patient Education: Patient Medication Summary Completed 01/19/2018 Appointment: Najma Og WPtel: [address] [place], [place] [phone] US LAB 01/13/2018 Patient Education: Patient Medication [...] : I10 10/15/2017 Appointment: Najma Og WPtel: [address] [place], [place] [phone] US FOLLOW UP 10/15/2017 Patient Education: Patient Medication Summary Completed 10/15/2017 Appointment: Najma Og WPtel: [address] [place], [place] [id number] US LAB 10/06/2017 Patient Education: Patient Medication Summary Completed 10/06/2017 Visit Diagnosis Plan: Actinic keratosis Discussion: Cr yotherapy as above ICD-9 : 702.0 ICD-10 : L57.0 04/23/2017 Appointment: Najma Og WPtel: [address] [place], [place] [phone] OFFICE SURGERY 04/23/2017 Patient Education: Patient [...] : E78.2 03/11/2017 Appointment: Najma Og WPtel: [address] [place], [place] [phone] FOLLOW UP 03/11/2017 Patient Education: Patient Medication Summary Completed 03/11/2017 Appointment: Najma Og WPtel: [address] [place], [place] [phone] LAB 03/05/2017 Patient Education: Patient Medication Summary [...] : F17.200 07/09/2016 Appointment: Najma Og WPtel: [address] [place], [place] [phone] 07/08 lm ~sl 07/09 confirmed~sl FOLLOW UP 08/2016 Patient Education: Patient Medication Summary Completed 07/09/2016 Appointment: Najma Og WPtel: [address] [place], [place] [phone] US LAB 06/16/2016 Patient Education: Patient Medication Summary Completed 06/16/2016 Visit Plan: Lab 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 [employer]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 Lifestyle change for 3mos then check CMP, HbA1C in 3mos Has had flu and pneumonia shot 03/10/2016 Appointment: Najma Og WPtel: [address] [place], [place] [id number] 03/06 confirmed `sl FOLLOW UP 03/10/2016 Patient Education: Patient Medication Summary Completed 03/10/2016 Appointment: Najma Og WPtel: [address] [place], [place] [phone] [place] LAB 03/06/2016 Patient Education: Patient Medication Summary Completed 03/06/2016 Referral: Donavon Keller WPtel: [address] [facility] [place] Referral Completed 10/22/2015 Visit Plan: Tick bite area looks much be tter Continue current rxs and close monitoring Follow up if any new symptoms or worsening appearance 09/12/2015 Appointment: Barbara Brower [address] [place] [address] 09/10 confirmed~sl FOLLOW UP 09/12/2015 Patient Education: Patient Medication Summary Completed 09/12/2015 Visit Plan: Cover as above 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 topical steroids to calm down the inflammation(suspect most of redness is due to histamine response vs infection) Monitor closely Follow up in 2 days to recheck 09/10/2015 Appointment: Barbara Brower [address] [place] [address] ACUTE ILLNESS 09/10/2015 Patient Education: Patient Medication [...] consider shingles vaccine 09/06/2015 Appointment: Barbara Brower [address] [facility] FOLLOW UP 09/06/2015 Patient Education: Patient Medication Summary Completed 09/06/2015 Care Plan: Referral Order SNOMED-CT : [id number] Pending 09/06/2015 Appointment: Najma Og WPtel: [address] [place], [place] [id number] LAB 08/31/2015 Patient Education: Patient Medication Summary Completed 08/31/2015 Visit Plan: Offered aggressive (KUB, IV fluids, Labs) vs. conservative (oral hydration, treat symptoms, watchful waiting). Elects for conservative + labs. CBC & CMP at [facility] [place] Discussed needed oral hydration (preferably with sports drinks), 24 hour clear liquid followed by BRAT diet and advance as tolerated Discussed s/s of worsening, go to UC/ER. 06/29/2015 Appointment: Henrietta Lubin WPtel: [address] [place] [address] ACUTE ILLNESS 06/29/2015 Patient Education: Patient Medication Summary Completed 06/29/2015 Visit Plan: Lab discussed Will keep meds the same Discussed diet/exercise at length Cryotherapy as above to AKs of arms Flu and Prevnar 13 given Trial of revatio per patient request for ED--warned of no nitrates Recheck 4mos 01/17/2015 Appointment: Najma Og WPtel: [address] [place], [place] [phone] 01/16 confirmed~sl FOLLOW UP 01/17/2015 Patient Education: Patient Medication Summary Completed 01/17/2015 Appointment: Najma Og WPtel: [address] [place], [place] [phone] [place] LAB 01/12/2015 Patient Education: Patient Medication Summary Completed 01/12/2015 Visit Plan: Lab discussed Start accuchec ks daily Cryotherapy as above 09/19/2014 Appointment: Najma Og WPtel: [address] [place] [address] 09/18 confirmed -mf FOLLOW UP 09/19/2014 Patient Education: Patient Medication Summary Completed 09/19/2014 Appointment: Najma Og WPtel: [address] [place] [address] [place] LAB 08/15/2014 Patient Education: Patient Medication Summary Completed 08/15/2014 Appointment: Najma Og WPtel: [address] [place] [address] ACUTE ILLNESS 12/14/2013 Patient Education: Patient Medication Summary Completed 12/14/2013 Visit Plan: Patient using tylenol prn pa in Discussed possible shingles shot for booster in 9-12mos 10/17/2013 Appointment: Najma Og WPtel: [address] [place] [address] FOLLOW UP 10/17/2013 Patient Education: Patient Medication Summary Completed 10/17/2013 Appointment: Jeanie Briceño WPtel: [address] [place] [address] ACUTE ILLNESS 09/23/2013 Patient Education: Patient Medication Summary Completed 09/23/2013 Appointment: Najma Og WPtel: [address] [place] [address] BP CHECK 07/22/2013 Patient Education: Patient Medication Summary Completed 07/22/2013 Visit Plan: Lab discussed Discussed swit arun amlodopine to beta slim to see if helps with tremor BP check in 1mo 06/20/2013 Appointment: Najma Og WPtel: [address] [place] [address] 06/17 no answer FOLLOW UP 06/20/2013 Patient Education: Patient Medication Summary Completed 06/20/2013 Appointment: Najma Og WPtel: [address] [place], [place] [id number] LAB 06/08/2013 Patient Education: Patient Medication Summary Completed 06/08/2013 Visit Plan: BRAT diet and yogurt and gat orade Lab discussed Continue current meds Spot checks on BS 11/25/2012 Appointment: Najma Og WPtel: [address] [place], [place] [phone] 11/24 FOLLOW UP 11/25/2012 Patient Education: Patient Medication Summary Completed 11/25/2012 Appointment: Najma Og WPtel: [address] [place], [place] [phone] LAB 11/11/2012 Patient Education: Patient Medication Summary Completed 11/11/2012 Appointment: Henrietta Lubin WPtel: [address] [place], [place] [phone] WORK IN 08/27/2012 Patient Education: Patient Medication Summary Completed 08/27/2012 Visit Plan: Pt going to get new home BP moniter Continue crestor and restart fish oil and will check fasting lab in 6mos Lab results discussed 05/11/2012 Appointment: Najma Og WPtel: [address] [place], [place] [phone] 05/10 FOLLOW UP 05/11/2012 Patient Education: Patient Medication Summary Completed 05/11/2012 Appointment: Najma Og WPtel: [address] [place] [id number] LAB 05/04/2012 Patient Education: Patient Medication Summary Completed 05/04/2012 Visit Plan: 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 and forehead 03/02/2012 Appointment: Najma Og WPtel: [address] [place], [place] [phone] 03/01 OFFICE SURGERY 03/02/2012 Patient Education: Patient Medication Summary Completed 03/02/2012 Visit Plan: Labs discussed--recheck lab end of Nov/first of Mar Continue current meds and continue to moniter BS daily and BP 1-2 times a week Plan on cryotherapy this fall so can wear longsleeves after procedure See urology 12/11/2011 Appointment: Najma Og WPtel: [address] [place], [place] [id number] FOLLOW UP 12/11/2011 Patient Education: Patient Medication Summary Completed 12/11/2011 Appointment: Najma Og WPtel: [address] [place], [place] [phone] [place] LAB 10/29/2011 Patient Education: Patient Medication Summary Completed 10/29/2011 Appointment: Najma Og WPtel: [address] [place] [address] BP CHECK 08/14/2011 Patient Education: Patient Medication Summary Completed 08/14/2011 Appointment: Najma Og WPtel: [address] [place] [address] ACUTE ILLNESS 07/29/2011 Patient Education: Patient Medication Summary Completed 07/29/2011 Appointment: Najma Og WPtel: [address] [place] [address] BP CHECK 07/23/2011 Patient Education: Patient Medication Summary Completed 07/23/2011 Appointment: Najma Og WPtel: [address] [place], [place] [phone] BP CHECK 06/24/2011 Patient Education: Patient Medication Summary Completed 06/24/2011 Appointment: Najma Og WPtel: [address] [place] [address] [place] BP CHECK 05/20/2011 Patient Education: Patient Medication Summary Completed 05/20/2011 Appointment: Najma Og WPtel: [address] [place], [place] [phone] BP CHECK 04/29/2011 Patient Education: Patient Medication Summary Completed 04/29/2011 Appointment: Najma Og WPtel: [facility] [facility] [place] [place] BP CHECK 04/15/2011 Patient Education: Patient Medication Summary Completed 04/15/2011 Visit Plan: Continue current meds Add fi sh oil 1gm daily Glucometer given to use for accuchecks prn 03/18/2011 Appointment: Najma Og WPtel: [address] [place], [place] [phone] [place] FOLLOW UP 03/18/2011 Patient Education: Patient Medication Summary Completed 03/18/2011 Appointment: Najma Og WPtel: [address] [place], [place] [phone] [place] LAB 03/14/2011 Patient Education: Patient Medication Summary Completed 03/14/2011 Appointment: Najma Og WPtel: [address] [place], [place] [phone] [place] LAB 11/11/2010 Appointment: Najma Og WPtel: [address] [place], [place] [id number] [place] UA 11/11/2010 Patient Education: Patient Medication Summary Completed 11/11/2010 Appointment: Najma Og WPtel: [address] [place], [place] [id number] [place] LAB 10/29/2010 Patient Education: Patient Medication Summary Completed 10/29/2010 Appointment: Najma Og WPtel: [address] [place], [place] [id number] [place] FOLLOW UP 07/30/2010 Patient Education: Patient Medication Summary Completed 07/30/2010 Appointment: Najma Og WPtel: [address] [place], [place] [phone] [place] LAB 07/23/2010 Patient Education: Patient Medication Summary Completed 07/23/2010 Appointment: Najma Og WPtel: [address] [place], [place] [phone] [place] LAB 04/26/2010 Patient Education: Patient Medication Summary Completed 04/26/2010 Visit Plan: Add PSA to lab Restart Crest or at 10mg daily Trial of Wellbutrin to aid in smoking cessation Check Lipids and LFTs in 3mos 04/24/2010 Appointment: Najma Og WPtel: [address] [facility] [place] [place] FOLLOW UP 04/24/2010 Patient Education: Patient Medication Summary Completed 04/24/2010 Appointment: Najma Og WPtel: [address] [facility] [place] [place] LAB 04/19/2010 Patient Education: Patient Medication Summary Completed 04/19/2010 Referral: Donavon Keller WPtel: [address] [facility] [address] [id number] [place] Referral Completed Instructions Comment . Lab [...] + labs. CBC & CMP at [facility] [place] Discussed needed oral hydration (preferably with sports [...]
--- OUTSIDE RECORDS SUMMARY | 2019-10-14 22:30 | XMS REPORT | CCD ---
Author Author Inocente Og D.O. Organization [facility] Address [address] [place] [address] Phone Care Team Providers Care General Farm Hand Name Role Phone Najma Og D.O. PP Unavailable CCM Unavailable Summary Purpose Interface Exchange Insurance Providers Payer name Policy type / Coverage type Covered constitution party ID Effective Begin Date Effective End Date [employer] MEDICARE Medicare Part B [id number] Unknown [facility] Medicare Part B [id number] Un known Family history Father Diagnosis Age At Onset Diabetes mellitus Type 2 Unknown Myocardial infarction Unknown Brother Diagnosis Age At Onset Diabetes mellitus Type 2 Unknown Mother Diagnosis Age At Onset Osteoarthritis Unknown Cerebrovascular disease Unknown Social History Social History Element Codes Description Effective Dates Tobacco history SNOMED CT: 612546501 Never smoker 12/21/2014 Marital status Unknown 07/30/2010 [...] Start Date Stop Date Status Fill Instructions escitalopram 10 mg tablet RxNorm: 511534 1 Tablet(s) Oral QD 201911/28/2019 Active fenofibrate micronized 134 mg capsule RxNorm: 392994 TA KE 1 CAPSULE BY MOUTH ONCE DAILY FOR TRIGLYCERIDES 07/08/2019 10/05/2019 Active amlodipine 5 mg tablet RxNorm: 314767 TAKE 1 TABLET BY MOUTH ON CE DAILY 06/16/2019 09/13/2019 Active metformin ER 500 mg tablet,extended release 24 hr RxNorm: 86 0975 TAKE 1 TABLET BY MOUTH ONCE DAILY 06/10/2019 09/07/2019 Active propranolol ER 80 mg capsule,24 hr,extended release RxNorm: 730321 TAKE 1 CAPSULE BY MOUTH ONCE DAILY 06/10/2019 09/07/2019 Active Vitamin D3 25 mcg (1,000 unit) capsule RxNorm: 086758 1 Capsule(s) Oral two times a day 06/02/2019 No Stop Date Active turmeric 400 mg capsule RxNorm: 1 Capsule(s) Oral QD 06/02/2019 No Stop Date Active Fish Oil 120 mg-180 mg-500 mg capsule RxNorm: 2 Capsule(s) Ora l QD 06/02/2019 No Stop Date Active 16.2 mg-0.1037 mg-0.0194 mg tablet RxNorm: 0896945 1 Tablet(s) Oral four times a day as needed abdominal pain/diarrhea 06/02/2019 No Stop D ate Active fenofibrate micronized 134 mg capsule RxNorm: 543503 1 Capsule(s) Oral QD for triglycerides 04/14/2019 07/07/2019 Inactive amlodipine 5 mg tablet RxNorm: 933324 TAKE 1 TABLET BY MOUTH ON CE DAILY 03/22/2019 06/15/2019 Inactive metformin ER 500 mg tablet,extended release 24 hr RxNorm: 86 0975 TAKE 1 TABLET BY MOUTH ONCE DAILY 03/15/2019 06/09/2019 Inactive propranolol ER 80 mg capsule,24 hr,extended release RxNorm: 730756 TAKE 1 CAPSULE BY MOUTH ONCE DAILY 03/15/2019 06/09/2019 Inactive amlodipine 5 mg tablet RxNorm: 063727 1 Tablet(s) PO QD 12/27/2018 Inactive fenofibrate micronized 134 mg capsule RxNorm: 859291 TA KE 1 CAPSULE BY MOUTH ONCE DAILY FOR TRIGLYCERIDES 10/11/2018 04/13/2019 Inactive amlodipine 5 mg tablet RxNorm: 834418 1 Tablet(s) PO QD 09/30/2018 Inactive metformin ER 500 mg tablet,extended release 24 hr RxNorm: 86 0975 TAKE 1 TABLET BY MOUTH ONCE DAILY 09/21/2018 03/14/2019 Inactive propranolol ER 80 mg capsule,24 hr,extended release RxNorm: 830615 TAKE 1 CAPSULE BY MOUTH ONCE DAILY 09/21/2018 03/14/2019 Inactive amlodipine 5 mg tablet RxNorm: 316613 1 Tablet(s) PO QD 08/25/2018 Inactive amlodipine 5 mg tablet RxNorm: 151277 1 Tablet(s) PO QD 08/25/2018 Inactive lisinopril 40 mg tablet RxNorm: 612488 TAKE 1 TABLET BY MOUTH O NCE DAILY 07/21/2018 08/24/2018 Inactive fenofibrate micronized 134 mg capsule RxNorm: 098191 TA KE 1 CAPSULE BY MOUTH ONCE DAILY FOR TRIGLYCERIDES 07/12/2018 10/10/2018 Inactive propranolol ER 80 mg capsule,24 hr,extended release RxNorm: 434407 TAKE 1 CAPSULE BY MOUTH ONCE DAILY 06/21/2018 09/20/2018 Inactive lisinopril 40 mg tablet RxNorm: 229393 TAKE 1 TABLET BY MOUTH O NCE DAILY 04/26/2018 07/20/2018 Inactive metformin ER 500 mg tablet,extended release 24 hr RxNorm: 479220 1 Tablet(s) QD 03/31/2018 09/20/2018 Inactive lisinopril 40 mg tablet RxNorm: 894538 TAKE 1 TABLET BY MOUTH O NCE DAILY 01/28/2018 04/25/2018 Inactive Vitamin D3 5,000 unit tablet RxNorm: 183273 1 Tablet(s) PO QD 01/1908/18/2018 Inactive fenofibrate micronized 134 mg capsule RxNorm: 664810 1 Capsule(s) PO QD for triglycerides 01/19/2018 07/11/2018 Inactive metformin ER 500 mg tablet,extended release 24 hr RxNorm: 820457 1 Tablet(s) QD 12/31/2017 03/30/2018 Inactive metformin ER 500 mg tablet,extended release 24 hr RxNorm: 256694 Tablet(s) 12/30/2017 12/30/2017 Inactive propranolol ER 80 mg capsule,24 hr,extended release RxNorm: 609916 1 Capsule(s) PO QD 12/17/2017 06/14/2018 Inactive metformin ER 500 mg tablet,extended release 24 hr RxNorm: 86 0975 1 Tablet(s) PO QD DUE FOR LABS AND APPT 12/02/2017 12/30/2017 Inactive Crestor 10 mg tablet RxNorm: 752209 TAKE ONE TABLET BY MOUTH ON CE DAILY 11/01/2017 01/18/2018 Inactive lisinopril 40 mg tablet RxNorm: 410672 TAKE ONE TABLET BY MOUTH ONCE DAILY [...] ER 80 mg capsule,24 hr,extended release RxNorm: 606662 1 Capsule(s) PO QD DUE FOR APPT 09/08/2017 12/17/2017 Inactive Crestor 10 mg tablet RxNorm: 738416 1 Tablet(s) PO QD T CHELSI ONE TABLET BY MOUTH DAILY 03/11/2017 09/06/2017 Inactive propranolol ER 80 mg capsule,24 hr,extended release RxNorm: 228865 1 Capsule(s) PO QD TAKE ONE CAPSULE BY MOUTH DAILY - REPLACES AMLODOPINE 03/11/2017 09/08/2017 Inactive metformin ER 500 mg tablet,extended release 24 hr RxNorm: 86 0975 1 Tablet(s) PO QD 03/11/2017 09/08/2017 Inactive lisinopril 40 mg tablet RxNorm: 390701 1 Tablet(s) PO QD 03/11/2017 0 09/06/2017 Inactive lisinopril 40 mg tablet RxNorm: 387313 1 Tablet(s) PO QD 02/16/2017 1 05/11/2016 Inactive metformin ER 500 mg tablet,extended release 24 hr RxNorm: 86 0975 1 Tablet(s) PO QD Due for labs and follow up before further refills 02/16/2017 017 Inactive propranolol ER 80 mg capsule,24 hr,extended release RxNorm: 931011 Capsule(s) TAKE ONE CAPSULE BY MOUTH DAILY - REPLACES AMLODOPINE 11/19/20162016 Inactive lisinopril 40 mg tablet RxNorm: 561555 1 Tablet(s) PO QD 11/17/2016 1 04/18/2016 Inactive metformin ER 500 mg tablet,extended release 24 hr RxNorm: 86 0975 1 Tablet(s) PO QD 11/17/2016 02/16/2017 Inactive lisinopril 40 mg tablet RxNorm: 380931 1 Tablet(s) PO Q D TAKE ONE TABLET BY MOUTH DAILY 08/19/2016 11/17/2016 Inactive metformin ER 500 mg tablet,extended release 24 hr RxNorm: 86 0975 Tablet(s) TAKE ONE TABLET BY MOUTH DAILY 08/19/2016 11/16/2016 Inactive propranolol ER 80 mg capsule,24 hr,extended release RxNorm: 689403 Capsule(s) TAKE ONE CAPSULE BY MOUTH DAILY - REPLACES AMLODOPINE 08/19/20162016 Inactive Crestor 10 mg tablet RxNorm: 454040 TAKE ONE TABLET BY MOUTH DAILY 06/16/2016 03/10/2017 Inactive lisinopril 40 mg tablet RxNorm: 640702 1 Tablet(s) PO Q D TAKE ONE TABLET BY MOUTH DAILY 05/23/2016 08/18/2016 Inactive metformin ER 500 mg tablet,extended release 24 hr RxNorm: 86 0975 TAKE ONE TABLET BY MOUTH DAILY 05/23/2016 08/19/2016 Inactive propranolol ER 80 mg capsule,24 hr,extended release RxNorm: 837223 TAKE ONE CAPSULE BY MOUTH DAILY - REPLACES AMLODOPINE 05/23/2016 08/19/2016 [place] [facility] Crestor 10 mg tablet RxNorm: 370702 TAKE ONE TABLET BY MOUTH DAILY 03/31/2016 06/15/2016 Inactive metformin ER 500 mg tablet,extended release 24 hr RxNorm: 86 0975 TAKE ONE TABLET BY MOUTH DAILY 02/19/2016 05/22/2016 Inactive propranolol ER 80 mg capsule,24 hr,extended release RxNorm: 767993 TAKE ONE CAPSULE BY MOUTH DAILY - REPLACES AMLODOPINE 11/23/2015 05/20/2016 [place] [facility] metformin ER 500 mg tablet,extended release 24 hr RxNorm: 86 0975 TAKE ONE TABLET BY MOUTH DAILY 11/08/2015 02/05/2016 Inactive Bactroban Nasal 2 % ointment RxNorm: 070448 Apply topic ally to affected area twice daily 09/10/2015 03/09/2016 Inactive Vibramycin 100 mg capsule RxNorm: 470432 1 Capsule(s) PO BID 201509/23/2015 Inactive lisinopril 40 mg tablet RxNorm: 352262 1 Tablet(s) PO Q D TAKE ONE TABLET BY MOUTH DAILY 08/27/2015 02/22/2016 Inactive metformin ER 500 mg tablet,extended release 24 hr RxNorm: 86 0975 TAKE ONE TABLET BY MOUTH DAILY 08/06/2015 11/03/2015 Inactive Levsin/SL 0.125 mg sublingual tablet RxNorm: 2068970 1 T ablet(s) SL Q4H as needed for stomach cramps 06/29/2015 07/03/2015 Inactive lisinopril 40 mg tablet RxNorm: 933471 Tablet(s) TAKE ONE TABLE T BY MOUTH DAILY 06/07/2015 08/26/2015 Inactive propranolol ER 80 mg capsule,24 hr,extended release RxNorm: 897319 TAKE ONE CAPSULE BY MOUTH DAILY - REPLACES AMLODOPINE 05/30/2015 11/22/2015 [place] [facility] metformin ER 500 mg tablet,extended release 24 hr RxNorm: 86 0975 1 Tablet(s) PO QD 05/10/2015 08/05/2015 Inactive Crestor 10 mg tablet RxNorm: 407103 TAKE ONE TABLET BY MOUTH DAILY 04/18/2015 10/14/2015 Inactive metformin ER 500 mg tablet,extended release 24 hr RxNorm: 86 0975 TAKE ONE TABLET BY MOUTH DAILY 02/07/2015 05/10/2015 Inactive sildenafil 20 mg tablet RxNorm: 739857 1 Tablet(s) PO QD 01/17/2015 1 04/17/2014 Inactive propranolol ER 80 mg capsule,24 hr,extended release RxNorm: 723854 1 Capsule(s) PO QD replaces amlodopine 11/28/2014 05/26/2015 Inactive [[facility] -- BIN:[id number], PCN: [id number], Group: [id number], ID# [id number], Process claim through [employer], for questions: . THIS IS NOT INSURANCE.] lisinopril 40 mg tablet RxNorm: 808151 TAKE ONE TABLET BY MOUTH DAILY 11/16/2014 06/07/2015 Inactive lisinopril 40 mg tablet RxNorm: 318923 1 Tablet(s) PO QD 08/21/2014 0 11/15/2014 Inactive [AttnRPh: Saving apply/adjudicate RxGRP: [id number] RxBIN:[id number] RxPCN: ID#:[id number]] lisinopril 40 mg tablet RxNorm: 728329 1 Tablet(s) PO Q D NEEDS SEEN FOR APPOINTMENT 07/14/2014 08/21/2014 Inactive [AttnRPh: Saving apply/adjudicate RxGRP:SG20 RxBIN:[id number] RxPCN: ID#:[id number]] Crestor 10 mg tablet RxNorm: 102385 TAKE ONE TABLET BY MOUTH EV EILEEN DAY 07/06/2014 01/01/2015 Inactive metformin ER 500 mg tablet,extended release 24 hr RxNorm: 86 0975 1 Tablet(s) QD TAKE ONE TABLET BY MOUTH ONCE A DAY 06/09/2014 12/05/2014 Inactive propranolol ER 80 mg capsule,24 hr,extended release RxNorm: 855431 1 Capsule(s) PO QD replaces amlodopine 06/05/2014 11/28/2014 Inactive [[facility] -- BIN:[id number], PCN: [id number], Group: [id number], ID# [id number], Process claim through [employer], for questions: . THIS IS NOT INSURANCE.] propranolol ER 80 mg capsule,24 hr,extended release RxNorm: 827792 1 Capsule(s) PO QD replaces amlodopine 03/07/2014 06/05/2014 Inactive [[facility] -- BIN:[id number], PCN: [id number], Group: [id number], ID# [id number], Process claim through [employer], for questions: . THIS IS NOT INSURANCE.] metformin ER 500 mg tablet,extended release 24 hr RxNorm: 86 0975 TAKE ONE TABLET BY MOUTH ONCE A DAY 12/15/2013 06/09/2014 Inactive propranolol ER 80 mg capsule,24 hr,extended release RxNorm: 145333 1 Capsule(s) PO QD replaces amlodopine 12/09/2013 03/07/2014 Inactive [[facility] -- BIN:113725, PCN: [id number], Group: [id number], ID# [id number], Process claim through [employer], for questions: . THIS IS NOT INSURANCE.] acyclovir 800 mg tablet RxNorm: 672359 1 Tablet(s) PO QID 09/23/2013 09/29/2013 Inactive gabapentin 300 mg capsule RxNorm: 828070 1 Capsule(s) PO BID 201310/07/2013 Inactive metformin ER 500 mg tablet,extended release 24 hr RxNorm: 86 0975 1 Tablet(s) PO QD 09/19/2013 12/14/2013 Inactive propranolol ER 80 mg capsule,24 hr,extended release RxNorm: 392540 1 Capsule(s) PO QD replaces amlodopine 09/15/2013 12/09/2013 Inactive metformin ER 500 mg 24 hr tablet,extended release RxNorm: 86 0975 1 Tablet(s) PO QD 09/15/2013 09/18/2013 Inactive lisinopril 40 mg tablet RxNorm: 663731 1 Tablet(s) PO QD 07/19/2013 0 07/14/2014 Inactive Crestor 10 mg tablet RxNorm: 555678 Tablet(s) PO TAKE O NE TABLET BY MOUTH EVERY DAY 07/12/2013 07/05/2014 Inactive propranolol ER 80 mg capsule,24 hr,extended release RxNorm: 383180 1 Capsule(s) PO QD replaces amlodopine 06/20/2013 09/15/2013 Inactive triamcinolone acetonide 0.1 % topical ointment RxNorm: 75967 36 Application TOP BID 06/20/2013 06/26/2013 Inactive Crestor 10 mg tablet RxNorm: 205177 1 Tablet(s) PO QD 04/18/201310/2013 Inactive Viagra 100 mg tablet RxNorm: 669033 1 Tablet(s) PO as directed 01/0508/18/2018 Inactive TAKE ONE TABLET BY MOUTH DIRECTED Crestor 10 mg tablet RxNorm: 017957 1 Tablet(s) PO QD 01/17/201304/06 Inactive metformin ER 500 mg tablet,extended release 24 hr RxNorm: 86 0975 1 Tablet(s) PO QD TAKE ONE TABLET BY MOUTH EVERY DAY 12/23/2012 09/15/2013 Inactive triamcinolone acetonide 0.1 % topical ointment RxNorm: 09942 36 Application TOP BID 08/27/2012 09/02/2012 Inactive ketoconazole 2 % topical cream RxNorm: 892321 1 Application TOP QAM 08/27/2012 09/02/2012 Inactive lisinopril 40 mg tablet RxNorm: 653978 1 Tablet(s) PO QD 07/21/2012 0 07/15/2013 Inactive Crestor 10 mg tablet RxNorm: 874998 1 Tablet(s) PO QD 07/21/201210/04 Inactive amlodipine 10 mg tablet RxNorm: 917732 1 Tablet(s) PO QHS 07/21/2012 07/15/2013 Inactive metformin ER 500 mg tablet,extended release 24 hr RxNorm: 86 0977 Tablet(s) PO TAKE ONE TABLET BY MOUTH EVERY DAY 03/31/2012 12/22/2012 Inactive lisinopril 40 mg tablet RxNorm: 431657 1 Tablet(s) PO QD 07/29/2011 0 07/20/2012 Inactive amlodipine 10 mg tablet RxNorm: 983535 1 Tablet(s) PO QHS 07/29/2011 07/20/2012 Inactive amlodipine 10 mg Tab RxNorm: 925372 1 Tablet(s) PO QHS 07/29/2011 Inactive Viagra 100 mg tablet RxNorm: 080439 1 Tablet(s) PO as directed 07/0601/24/2013 Inactive TAKE ONE TABLET BY MOUTH DIRECTED Crestor 10 mg tablet RxNorm: 676556 1 Tablet(s) PO QD 07/29/201107/05 Inactive Norvasc 5 mg Tab RxNorm: 097197 1 Tablet(s) PO QD 07/16/2011 07/28/19 12 Inactive Norvasc 5 mg Tab RxNorm: 339812 1 Tablet(s) PO QD 06/26/2011 07/15/19 12 Inactive lisinopril 40 mg Tab RxNorm: 085668 1 Tablet(s) PO QD 05/13/201107/06 Inactive metformin ER 500 mg tablet,extended release 24 hr RxNorm: 86 0977 1 Tablet(s) PO QD 03/18/2011 07/28/2011 Inactive Crestor 10 mg Tab RxNorm: 862349 1 Tablet(s) PO QHS 01/27/20112011 Inactive metformin ER 500 mg 24 hr Tab RxNorm: 348999 1 Tablet(s) PO QD 11/0403/17/2011 Inactive Viagra 100 mg Tab RxNorm: 058237 Tablet(s) PO TAKE ON E TABLET BY MOUTH DIRECTED 08/26/2010 07/28/2011 Inactive metformin ER 500 mg 24 hr Tab RxNorm: 089434 1 Tablet(s) PO QD 07/0611/18/2010 Inactive Crestor 10 mg Tab RxNorm: 062055 1 Tablet(s) PO QHS 07/30/20102010 Inactive Crestor 10 mg Tab RxNorm: 283422 1 Tablet(s) PO QHS 05/20/20102010 Inactive Wellbutrin SR 150 mg Tab RxNorm: 641326 1 Tablet(s) PO QAM 04/24/19 11 07/22/2010 Inactive Multivitamin And Mineral tablet RxNorm: 1 Tablet(s) PO QD No Start Date Active FreeStyle Lite Strips RxNorm: 1 Unit Dose Miscel laneous AC & HS check blood sugar AC and HS No Start Date Active Co Q-10 200 mg capsule RxNorm: 150835 1 Capsule(s) PO QD No Start Date Active lancets RxNorm: 1 Milliliter(s) Miscellaneous AC & HS No Start Robert e Active Vitamin D3 4,000 unit capsule RxNorm: 5060483 1 Capsule(s) PO QD No Start Date 07/08/2016 Inactive Fish Oil 360 mg-1,200 mg capsule RxNorm: 587414 2 Capsule(s) PO QD No Start Date 01/30/2019 Inactive hydrocodone 5 mg-acetaminophen 325 mg tablet RxNorm: 589683 1 Tablet(s) PO Q4H as needed for severe pain No Start Date 12/30/2015 Inactive Xanax 0.25 mg tablet RxNorm: 478130 1/2 Tablet(s) PO PRN for se andrea stress No Start Date 07/08/2016 Inactive lisinopril 40 mg Tab RxNorm: 014765 1 Tablet(s) PO QD No Start Date 0 05/12/2011 Inactive Fish Oil 1,000 mg capsule RxNorm: 1 Capsule(s) PO QD No Start Date 09/18/2014 Inactive naproxen 500 mg Tab RxNorm: 241225 1 Tablet(s) PO BID No Start Date 0 07/28/2011 Inactive aspirin 81 mg tablet RxNorm: 500667 1 Tablet(s) PO QD No Start Date 0 05/09/2018 Inactive Crestor 10 mg Tab RxNorm: 184404 1 Tablet(s) PO QD No Start Date 07/06 Inactive Crestor 5 mg tablet RxNorm: 347586 1 Tablet(s) PO QD No Start Date Inactive Fish Oil Oral RxNorm: Oral No Start Date 09/18/2014 Inactive Viagra 100 mg Tab RxNorm: 606853 1 Tablet(s) PO as directed No Star [...] Code Item Item Code Result Date S [facility] Location GLYCOSYLATED HEMOGLOBIN TEST 94827 Hgb A1c 30497-2 6.6 % 0 08/24/2019 Unknown MEAN GLUC 4835380 Calc Mean Gluc 143 mg/dL 08/24/2019 Unkn own COMPREHENSIVE METABOLIC 49687 AST 24 U/L 2019 Unknown COMPREHENSIVE METABOLIC 46941 ALT 32 U/L 2019 Unknown COMPREHENSIVE METABOLIC 74610 BUN 14 mg/dL 2019 Unknown COMPREHENSIVE METABOLIC 72857 ALBUMIN 4.7 g/dL 2019 Unknown COMPREHENSIVE METABOLIC 48263 CHLORIDE 103 mmol/L 08/23 Unknown COMPREHENSIVE METABOLIC 05937 Bili Total 0.5 mg/dL 08/23 Unknown COMPREHENSIVE METABOLIC 18279 ALK PHOS 57 U/L 2019 Unknown COMPREHENSIVE METABOLIC 78060 SODIUM 140 mmol/L 08/23 Unknown COMPREHENSIVE METABOLIC 07650 CREATININE 1.20 mg/dL 08/05 Unknown COMPREHENSIVE METABOLIC 30023 CALCIUM 9.9 mg/dL 2019 Unknown COMPREHENSIVE METABOLIC 69615 POTASSIUM 4.4 mmol/L 08/23 Unknown COMPREHENSIVE METABOLIC 37350 Total Protein 6.9 g/dL Unknown COMPREHENSIVE METABOLIC 04648 Glucose 123 mg/dL 2019 Unknown COMPREHENSIVE METABOLIC 90470 Bicarbonate 25 mmol/L 08/05 Unknown COMPREHENSIVE METABOLIC 58447 AGAP 12 mmol/L 2019 Unknown GFR CALC 4981954 GFR Non Afr Amr 60 mL/min 08/24/2019 Unk nown GFR CALC 0125157 GFR Afr Amr >60 mL/min 08/24/2019 Unknow n GLYCOSYLATED HEMOGLOBIN TEST 91082 Hgb A1c 36260-7 6.7 % 0 05/24/2019 Unknown COMPREHENSIVE METABOLIC 38325 AST 21 U/L 2019 Unknown COMPREHENSIVE METABOLIC 39587 ALT 26 U/L 2019 Unknown COMPREHENSIVE METABOLIC 23573 BUN 14 mg/dL 2019 Unknown COMPREHENSIVE METABOLIC 18444 ALBUMIN 4.4 g/dL 2019 Unknown COMPREHENSIVE METABOLIC 41525 CHLORIDE 102 mmol/L 05/24 Unknown COMPREHENSIVE METABOLIC 27084 Bili Total 0.4 mg/dL 05/24 Unknown COMPREHENSIVE METABOLIC 93998 ALK PHOS 55 U/L 2019 Unknown COMPREHENSIVE METABOLIC 43504 SODIUM 139 mmol/L 05/24 Unknown COMPREHENSIVE METABOLIC 02389 CREATININE 1.28 mg/dL 05/07 Unknown COMPREHENSIVE METABOLIC 93956 CALCIUM 9.7 mg/dL 2019 Unknown COMPREHENSIVE METABOLIC 53676 POTASSIUM 4.7 mmol/L 05/24 Unknown COMPREHENSIVE METABOLIC 38991 Total Protein 6.8 g/dL Unknown COMPREHENSIVE METABOLIC 57516 Glucose 130 mg/dL 2019 Unknown COMPREHENSIVE METABOLIC 21696 Bicarbonate 29 mmol/L 05/07 Unknown COMPREHENSIVE METABOLIC 44927 AGAP 8 mmol/L 2019 Unknown MEAN GLUC 8221790 Calc Mean Gluc 146 mg/dL 05/24/2019 Unkn own GFR CALC 9092004 GFR Non Afr Amr 56 mL/min 05/24/2019 Unk nown GFR CALC 9626970 GFR Afr Amr >60 mL/min 05/24/2019 Unknow n MEAN GLUC 9903169 Calc Mean Gluc 140 mg/dL 01/26/2019 Unkn own GLYCOSYLATED HEMOGLOBIN TEST 52029 Hgb A1c 35024-9 6.5 % 1 Unknown COMPREHENSIVE METABOLIC 42279 AST 17 U/L 2018 Unknown COMPREHENSIVE METABOLIC 11478 ALT 19 U/L 2018 Unknown COMPREHENSIVE METABOLIC 88298 BUN 19 mg/dL 2018 Unknown COMPREHENSIVE METABOLIC 28220 ALBUMIN 4.3 g/dL 2018 Unknown COMPREHENSIVE METABOLIC 64505 CHLORIDE 103 mmol/L 01/26 Unknown COMPREHENSIVE METABOLIC 95136 Bili Total 0.6 mg/dL 01/26 Unknown COMPREHENSIVE METABOLIC 88944 ALK PHOS 60 U/L 2018 Unknown COMPREHENSIVE METABOLIC 45918 SODIUM 140 mmol/L 01/26 Unknown COMPREHENSIVE METABOLIC 13480 CREATININE 1.21 mg/dL 01/05 Unknown COMPREHENSIVE METABOLIC 02629 CALCIUM 9.6 mg/dL 2018 Unknown COMPREHENSIVE METABOLIC 68262 POTASSIUM 4.5 mmol/L 01/26 Unknown COMPREHENSIVE METABOLIC 29682 Total Protein 6.7 g/dL Unknown COMPREHENSIVE METABOLIC 31578 Glucose 111 mg/dL 2018 Unknown COMPREHENSIVE METABOLIC 65406 Bicarbonate 28 mmol/L 01/05 Unknown COMPREHENSIVE METABOLIC 42005 AGAP 9 mmol/L 2018 Unknown COMPLETE BLOOD COUNT 2764177 WBC 10.7 10e9/L 019 Unknown COMPLETE BLOOD COUNT 8189505 RBC 4.38 10e12/L 2018 Unknown COMPLETE BLOOD COUNT 5498572 HEMOGLOBIN 13.7 g/dL 01/27/20 19 Unknown COMPLETE BLOOD COUNT 5057124 HEMATOCRIT 42.0 % 01/27/20 19 Unknown COMPLETE BLOOD COUNT 1927386 MCV 95.9 fL 9 Unknown COMPLETE BLOOD COUNT 7338462 MCH 31.3 pg 9 Unknown COMPLETE BLOOD COUNT 0478715 MCHC 32.6 g/dL 9 Unknown COMPLETE BLOOD COUNT 0902307 PLATELET COUNT 232 10e9/L Unknown COMPLETE BLOOD COUNT 1646919 Mean Plt Volume 11.4 fL Unknown COMPLETE BLOOD COUNT 2165942 Neut Auto 68.7 % 9 Unknown COMPLETE BLOOD COUNT 0234509 Lymph Auto 21.2 % 01/27/20 19 Unknown COMPLETE BLOOD COUNT 3372356 [place] Auto 8.1 % 9 Unknown COMPLETE BLOOD COUNT 6670689 RDW 14.1 % 9 Unknown COMPLETE BLOOD COUNT 3825442 Eos Auto 1.8 % 9 Unknown COMPLETE BLOOD COUNT 8828675 Baso Auto 0.2 % 9 Unknown COMPLETE BLOOD COUNT 2406899 Neutrophil Abs 7.35 10e9/L Unknown COMPLETE BLOOD COUNT 0499952 Lymphocyte Abs 2.27 10e9/L Unknown COMPLETE BLOOD COUNT 2049938 Monocyte Abs 0.87 10e9/L 01/05 Unknown COMPLETE BLOOD COUNT 1694131 Eosinophil Abs 0.19 10e9/L Unknown COMPLETE BLOOD COUNT 3600693 RDW-SD 47.7 fL 9 Unknown COMPLETE BLOOD COUNT 0639569 Basophil Abs 0.02 10e9/L 01/05 Unknown GFR CALC 9979470 GFR Non Afr Amr 59 mL/min 01/26/2019 Unk nown GFR CALC 2145772 GFR Afr Amr >60 mL/min 01/26/2019 Unknow n LIPID GROUP 48394 Cholesterol 215 mg/dL 01/26/2019 Unkno wn LIPID GROUP 94654 Triglyceride 221 mg/dL 01/26/2019 Unkn own LIPID GROUP 30238 HDL CHOLESTEROL 41 mg/dL 01/26/2019 U nknown LIPID GROUP 52111 Chol/HDL Ratio 5.24 ratio 01/26/2019 U nknown LIPID GROUP 48719 NON-HDL Chol 174 mg/dL 01/26/2019 Unkn own LIPID GROUP 74623 LDL Cholesterol 130 mg/dL 01/26/2019 [place] [address] Glucose 104 mg/dL 09/30 [place] [address] CREATININE 1.18 mg/dL [place] [address] BUN 19 mg/dL 09/30 [place] [address] SODIUM 139 mmol/L 09/05 [place] [address] POTASSIUM 4.1 mmol/L 09/05 [place] [address] CHLORIDE 105 mmol/L 09/05 [place] [address] Bicarbonate 26 mmol/L [place] [address] AGAP 8 mmol/L 09/30 [place] [address] CALCIUM 9.3 mg/dL 09/30 Unknown GFR CALC 3331606 GFR Non Afr Amr >60 mL/min 09/30/2018 Un known GFR CALC 4484450 GFR Afr Amr >60 mL/min 09/30/2018 Unknow n MICROALBUMIN URINE RANDOM 35947 U Microalbumin <2.0 mg/L 08/19/2018 Unknown MICROALBUMIN URINE RANDOM 85251 U Creatinine 66 mg/dL 0 08/19/2018 Unknown MICROALBUMIN URINE RANDOM 33578 ALB/CR Ratio <3.0 mg/gCR 08/19/2018 Unknown COMPREHENSIVE METABOLIC 28209 AST 21 U/L 2018 Unknown COMPREHENSIVE METABOLIC 28368 ALT 20 U/L 2018 Unknown COMPREHENSIVE METABOLIC 35599 BUN 31 mg/dL 2018 Unknown COMPREHENSIVE METABOLIC 81709 ALBUMIN 4.4 g/dL 2018 Unknown COMPREHENSIVE METABOLIC 55314 CHLORIDE 105 mmol/L 08/16 Unknown COMPREHENSIVE METABOLIC 87847 Bili Total 0.5 mg/dL 08/16 Unknown COMPREHENSIVE METABOLIC 21140 ALK PHOS 40 U/L 2018 Unknown COMPREHENSIVE METABOLIC 20786 SODIUM 140 mmol/L 08/16 Unknown COMPREHENSIVE METABOLIC 80129 CREATININE 1.45 mg/dL 08/04 Unknown COMPREHENSIVE METABOLIC 23096 CALCIUM 9.8 mg/dL 2018 Unknown COMPREHENSIVE METABOLIC 55225 POTASSIUM 5.1 mmol/L 08/16 Unknown COMPREHENSIVE METABOLIC 62757 Total Protein 6.9 g/dL Unknown COMPREHENSIVE METABOLIC 98312 Glucose 110 mg/dL 2018 Unknown COMPREHENSIVE METABOLIC 72620 Bicarbonate 25 mmol/L 08/04 Unknown COMPREHENSIVE METABOLIC 15577 AGAP 10 mmol/L 2018 Unknown GFR CALC 1600624 GFR Non Afr Amr 48 mL/min 08/16/2018 Unk nown GFR CALC 1829198 GFR Afr Amr 58 mL/min 08/16/2018 Unknown GLYCOSYLATED HEMOGLOBIN TEST 81049 Hgb A1c 90018-8 5.9 % 0 08/16/2018 Unknown LIPID GROUP 05116 Cholesterol 226 mg/dL 08/16/2018 Unkno wn LIPID GROUP 21204 Triglyceride 335 mg/dL 08/16/2018 Unkn own LIPID GROUP 89569 HDL CHOLESTEROL 32 mg/dL 08/16/2018 U nknown LIPID GROUP 00603 Chol/HDL Ratio 7.06 ratio 08/16/2018 U nknown LIPID GROUP 52090 NON-HDL Chol 194 mg/dL 08/16/2018 Unkn own LIPID GROUP 57245 LDL Cholesterol 127 mg/dL 08/16/2018 U nknown THYROID STIMULATING HORMONE 14262 TSH 2.475 uIU/mL 08/16/2018 Unknown COMPLETE BLOOD COUNT 7642413 WBC 7.5 10e9/L 08/17/19 19 Unknown COMPLETE BLOOD COUNT [id number] RBC 4.09 10e12/L 2018 Unknown COMPLETE BLOOD COUNT [id number] HEMOGLOBIN 12.9 g/dL 08/17/19 19 Unknown COMPLETE BLOOD COUNT 2664029 HEMATOCRIT 40.0 % 08/17/19 19 Unknown COMPLETE BLOOD COUNT 7992572 MCV 97.8 fL 9 Unknown COMPLETE BLOOD COUNT 3109949 MCH 31.5 pg 9 Unknown COMPLETE BLOOD COUNT 8902532 MCHC 32.3 g/dL 9 Unknown COMPLETE BLOOD COUNT 7149755 PLATELET COUNT 258 10e9/L Unknown COMPLETE BLOOD COUNT 1970973 Mean Plt Volume 11.4 fL Unknown COMPLETE BLOOD COUNT [id number] Neut Auto 62.9 % 9 Unknown COMPLETE BLOOD COUNT [id number] Lymph Auto 27.3 % 08/17/19 19 Unknown COMPLETE BLOOD COUNT [id number] [place] Auto 8.2 % 9 Unknown COMPLETE BLOOD COUNT 1895133 RDW 13.3 % 9 Unknown COMPLETE BLOOD COUNT 9570169 Eos Auto 1.5 % 9 Unknown COMPLETE BLOOD COUNT [id number] Baso Auto 0.1 % 9 Unknown COMPLETE BLOOD COUNT [id number] Neutrophil Abs 4.72 10e9/L Unknown COMPLETE BLOOD COUNT [id number] Lymphocyte Abs 2.05 10e9/L Unknown COMPLETE BLOOD COUNT [id number] Monocyte Abs 0.62 10e9/L 08/04 Unknown COMPLETE BLOOD COUNT [id number] Eosinophil Abs 0.11 10e9/L Unknown COMPLETE BLOOD COUNT [id number] RDW-SD 46.7 fL 9 Unknown COMPLETE BLOOD COUNT [id number] Basophil Abs 0.01 10e9/L 08/04 Unknown MEAN GLUC 0590836 Calc Mean Gluc 123 mg/dL 08/16/2018 Unkn own LIP[facility] GROUP 83657 Cholesterol 212 mg/dL 05/05/2018 Unkno wn [facility] 85721 Triglyceride 271 mg/dL 05/05/2018 Unkn own [facility] 57319 HDL CHOLESTEROL 38 mg/dL 05/05/2018 U nknown LIPID GROUP 56297 Chol/HDL Ratio 5.58 ratio 05/05/2018 U nknown LIPID GROUP 63916 NON-HDL Chol 174 mg/dL 05/05/2018 Unkn own L[facility] GROUP 72789 LDL Cholesterol 120 mg/dL 05/05/2018 U nknown GFR CALC 7880923 GFR Non Afr Amr 49 mL/min 05/05/2018 Unk nown GFR CALC 1543304 GFR Afr Amr 59 mL/min 05/05/2018 Unknown GLYCOSYLATED HEMOGLOBIN TEST 30476 Hgb A1c 20206-4 6.0 % 0 05/05/2018 Unknown MEAN GLUC 8682357 Calc Mean Gluc 126 mg/dL 05/05/2018 Unkn own COMPREHENSIVE METABOLIC 64469 AST 18 U/L 2018 Unknown COMPREHENSIVE METABOLIC 70617 ALT 23 U/L 2018 Unknown COMPREHENSIVE METABOLIC 10237 BUN 30 mg/dL 2018 Unknown COMPREHENSIVE METABOLIC 11236 ALBUMIN 4.3 g/dL 2018 Unknown COMPREHENSIVE METABOLIC 15701 CHLORIDE 106 mmol/L 05/05 Unknown COMPREHENSIVE METABOLIC 15552 Bili Total 0.4 mg/dL 05/05 Unknown COMPREHENSIVE METABOLIC 20398 ALK PHOS 39 U/L 2018 Unknown COMPREHENSIVE METABOLIC 92607 SODIUM 139 mmol/L 05/05 Unknown COMPREHENSIVE METABOLIC 13588 CREATININE 1.44 mg/dL 04/08 Unknown COMPREHENSIVE METABOLIC 02204 CALCIUM 9.6 mg/dL 2018 Unknown COMPREHENSIVE METABOLIC 28946 POTASSIUM 4.7 mmol/L 05/05 Unknown COMPREHENSIVE METABOLIC 28568 Total Protein 6.6 g/dL Unknown COMPREHENSIVE METABOLIC 13294 Glucose 112 mg/dL 2018 Unknown COMPREHENSIVE METABOLIC 48147 Bicarbonate 28 mmol/L 04/08 Unknown COMPREHENSIVE METABOLIC 72175 AGAP 5 mmol/L 2018 Unknown THYROID STIMULATING HORMONE 81110 TSH 3.725 uIU/mL 05/05/2018 Unknown COMPLETE BLOOD COUNT 0598368 WBC 8.2 10e9/L 05/05/19 19 Unknown COMPLETE BLOOD COUNT [id number] RBC 4.02 10e12/L 2018 Unknown COMPLETE BLOOD COUNT 8386342 HEMOGLOBIN 12.7 g/dL 05/05/19 19 Unknown COMPLETE BLOOD COUNT 4756226 HEMATOCRIT 39.3 % 05/05/19 19 Unknown COMPLETE BLOOD COUNT 0548954 MCV 97.8 fL 9 Unknown COMPLETE BLOOD COUNT 2250930 MCH 31.6 pg 9 Unknown COMPLETE BLOOD COUNT 9569732 MCHC 32.3 g/dL 9 Unknown COMPLETE BLOOD COUNT 1167343 PLATELET COUNT 213 10e9/L Unknown COMPLETE BLOOD COUNT 4137627 Mean Plt Volume 11.7 fL Unknown COMPLETE BLOOD COUNT 0806269 Neut Auto 55.7 % 9 Unknown COMPLETE BLOOD COUNT [id number] Lymph Auto 33.2 % 05/05/19 19 Unknown COMPLETE BLOOD COUNT [id number] [place] Auto 8.5 % 9 Unknown COMPLETE BLOOD COUNT 9249458 RDW 13.9 % 9 Unknown COMPLETE BLOOD COUNT 5853846 Eos Auto 2.4 % 9 Unknown COMPLETE BLOOD COUNT 1163097 Baso Auto 0.2 % 9 Unknown COMPLETE BLOOD COUNT [id number] Neutrophil Abs 4.57 10e9/L Unknown COMPLETE BLOOD COUNT [id number] Lymphocyte Abs 2.72 10e9/L Unknown COMPLETE BLOOD COUNT [id number] Monocyte Abs 0.70 10e9/L 04/08 Unknown COMPLETE BLOOD COUNT 7377745 Eosinophil Abs 0.20 10e9/L Unknown COMPLETE BLOOD COUNT [id number] RDW-SD 48.8 fL 9 Unknown COMPLETE BLOOD COUNT [id number] Basophil Abs 0.02 10e9/L 04/08 Unknown MICROALBUMIN URINE RANDOM 44499 U Microalbumin 19.3 mg/L 01/19/2018 Unknown MICROALBUMIN URINE RANDOM 15743 U Creatinine 96 mg/dL 1 Unknown MICROALBUMIN URINE RANDOM 00294 ALB/CR Ratio 20.1 mg/gCR 01/19/2018 Unknown LIPID GROUP 52403 Cholesterol 173 mg/dL 01/13/2018 [facility] wn [facility] 76964 Triglyceride 386 mg/dL 01/13/2018 Unkn own L[facility] 03517 HDL CHOLESTEROL 37 mg/dL 01/13/2018 U nknown LIPID GROUP 41813 Chol/HDL Ratio 4.68 ratio 01/13/2018 U nknown LIP[facility] GROUP 13522 NON-HDL Chol 136 mg/dL 01/13/2018 Unkn own L[facility] 45340 LDL Cholesterol 59 mg/dL 01/13/2018 U nknown COMPLETE BLOOD COUNT 2457112 WBC TNP:Client Request 01/13/2018 Unknown COMPLETE BLOOD COUNT 8292458 RBC TNP:Client Request 01/13/2018 Unknown COMPLETE BLOOD COUNT 7491175 HEMOGLOBIN TNP:Client Request 01/13/2018 Unknown COMPLETE BLOOD COUNT [id number] HEMATOCRIT TNP:Client Request 01/13/2018 Unknown COMPLETE BLOOD COUNT 5369518 MCV TNP:Client Request 01/13/2018 Unknown COMPLETE BLOOD COUNT [id number] MCH TNP:Client Request 01/13/2018 Unknown COMPLETE BLOOD COUNT [id number] MCHC TNP:Client Request 01/13/2018 Unknown COMPLETE BLOOD COUNT 6186743 PLATELET COUNT TNP:Client Req uest 01/13/2018 Unknown COMPLETE BLOOD COUNT 0929192 Mean Plt Volume TNP:Client Re quest 01/13/2018 Unknown COMPLETE BLOOD COUNT [id number] Neut Auto TNP:Client Request 01/13/2018 Unknown COMPLETE BLOOD COUNT 4355404 Lymph Auto TNP:Client Request 01/13/2018 Unknown COMPLETE BLOOD COUNT 1298663 [place] Auto TNP:Client Request 01/13/2018 Unknown COMPLETE BLOOD COUNT [id number] RDW TNP:Client Request 01/13/2018 Unknown COMPLETE BLOOD COUNT 1298876 Eos Auto TNP:Client Request 01/13/2018 Unknown COMPLETE BLOOD COUNT [id number] Baso Auto TNP:Client Request 01/13/2018 Unknown COMPLETE BLOOD COUNT [id number] Neutrophil Abs TNP:Client Req uest 01/13/2018 Unknown COMPLETE BLOOD COUNT [id number] Lymphocyte Abs TNP:Client Req uest 01/13/2018 Unknown COMPLETE BLOOD COUNT [id number] Monocyte Abs TNP:Client Reque st 01/13/2018 Unknown COMPLETE BLOOD COUNT [id number] Eosinophil Abs TNP:Client Req uest 01/13/2018 Unknown COMPLETE BLOOD COUNT [id number] RDW-SD TNP:Client Request 01/13/2018 Unknown COMPLETE BLOOD COUNT [id number] Basophil Abs TNP:Client Reque st 01/13/2018 Unknown GLYCOSYLATED HEMOGLOBIN TEST 35376 Hgb A1c 53754-0 6.2 % 1 Unknown THYROID STIMULATING HORMONE 25080 TSH 2.764 uIU/mL 01/13/2018 Unknown COMPREHENSIVE METABOLIC 25866 AST 19 U/L 2017 Unknown COMPREHENSIVE METABOLIC 62399 ALT 21 U/L 2017 Unknown COMPREHENSIVE METABOLIC 44080 BUN 16 mg/dL 2017 Unknown COMPREHENSIVE METABOLIC 65180 ALBUMIN 4.2 g/dL 2017 Unknown COMPREHENSIVE METABOLIC 37031 CHLORIDE 105 mmol/L 01/13 Unknown COMPREHENSIVE METABOLIC 46666 Bili Total 0.5 mg/dL 01/13 Unknown COMPREHENSIVE METABOLIC 30057 ALK PHOS 85 U/L 2017 Unknown COMPREHENSIVE METABOLIC 31069 SODIUM 139 mmol/L 01/13 Unknown COMPREHENSIVE METABOLIC 66485 CREATININE 1.07 mg/dL 01/04 Unknown COMPREHENSIVE METABOLIC 61837 CALCIUM 9.2 mg/dL 2017 Unknown COMPREHENSIVE METABOLIC 27228 POTASSIUM 4.4 mmol/L 01/13 Unknown COMPREHENSIVE METABOLIC 43901 Total Protein 7.7 g/dL Unknown COMPREHENSIVE METABOLIC 84048 Glucose 130 mg/dL 2017 Unknown COMPREHENSIVE METABOLIC 21302 Bicarbonate 27 mmol/L 01/04 Unknown COMPREHENSIVE METABOLIC 56739 AGAP 7 mmol/L 2017 Unknown PSA EQUIMOLAR JERSON 46218 PSA Total 1.16 ng/mL 8 Unknown MEAN GLUC 9694708 Calc Mean Gluc 131 mg/dL 01/13/2018 Unkn own GFR CALC 2525049 GFR Non Afr Amr >60 mL/min 01/13/2018 Un known GFR CALC 0615629 GFR Afr Amr >60 mL/min 01/13/2018 Unknow n MEAN GLUC 9789340 Calc Mean Gluc 134 mg/dL 10/06/2017 Unkn own GFR CALC 3496757 GFR Non Afr Amr >60 mL/min 10/06/2017 Un known GFR CALC 0165986 GFR Afr Amr >60 mL/min 10/06/2017 Unknow n GLYCOSYLATED HEMOGLOBIN TEST 49845 Hgb A1c 97220-0 6.3 % 0 10/06/2017 Unknown VITAMIN B 12 04855 VITAMIN B12 1202 pg/mL 10/06/2017 Unk nown COMPLETE BLOOD COUNT 8011696 WBC 7.4 10e9/L 10/07/19 18 Unknown COMPLETE BLOOD COUNT [id number] RBC 4.24 10e12/L 2017 Unknown COMPLETE BLOOD COUNT 6640802 HEMOGLOBIN 13.5 g/dL 10/07/19 18 Unknown COMPLETE BLOOD COUNT 9100442 HEMATOCRIT 41.6 % 10/07/19 18 Unknown COMPLETE BLOOD COUNT 3657292 MCV 98.1 fL 8 Unknown COMPLETE BLOOD COUNT 9585790 MCH 31.8 pg 8 Unknown COMPLETE BLOOD COUNT 2663853 MCHC 32.5 g/dL 8 Unknown COMPLETE BLOOD COUNT 5255578 PLATELET COUNT 223 10e9/L 06/2017 Unknown COMPLETE BLOOD COUNT 2046069 Mean Plt Volume 11.9 fL 06/2017 Unknown COMPLETE BLOOD COUNT 6435566 Neut Auto 58.0 % 8 Unknown COMPLETE BLOOD COUNT 3484818 Lymph Auto 29.7 % 10/07/19 18 Unknown COMPLETE BLOOD COUNT 3215577 [place] Auto 8.3 % 8 Unknown COMPLETE BLOOD COUNT 8349976 RDW 14.0 % 8 Unknown COMPLETE BLOOD COUNT 0872686 Eos Auto 3.7 % 8 Unknown COMPLETE BLOOD COUNT 3904331 Baso Auto 0.3 % 8 Unknown COMPLETE BLOOD COUNT 4361161 Neutrophil Abs 4.29 10e9/L Unknown COMPLETE BLOOD COUNT [id number] Lymphocyte Abs 2.20 10e9/L Unknown COMPLETE BLOOD COUNT 6368433 Monocyte Abs 0.61 10e9/L 06/2017 Unknown COMPLETE BLOOD COUNT [id number] Eosinophil Abs 0.27 10e9/L Unknown COMPLETE BLOOD COUNT 5641757 RDW-SD 48.6 fL 8 Unknown COMPLETE BLOOD COUNT 1073117 Basophil Abs 0.02 10e9/L 06/2017 Unknown LIPID GROUP 40513 Cholesterol 216 mg/dL 10/06/2017 Unkno wn [facility] 30402 Triglyceride 335 mg/dL 10/06/2017 Unkn own L[facility] 77283 HDL CHOLESTEROL 33 mg/dL 10/06/2017 U nknown LIPID GROUP 22877 Chol/HDL Ratio 6.55 ratio 10/06/2017 U nknown LIPID GROUP 07456 NON-HDL Chol 183 mg/dL 10/06/2017 Unkn own LIP[facility] GROUP 99948 LDL Cholesterol 116 mg/dL 10/06/2017 U nknown COMPREHENSIVE METABOLIC 86494 AST 15 U/L 2017 Unknown COMPREHENSIVE METABOLIC 84926 ALT 15 U/L 2017 Unknown COMPREHENSIVE METABOLIC 64215 BUN 21 mg/dL 2017 Unknown COMPREHENSIVE METABOLIC 04763 ALBUMIN 4.1 g/dL 2017 Unknown COMPREHENSIVE METABOLIC 10043 CHLORIDE 107 mmol/L 10/06 Unknown COMPREHENSIVE METABOLIC 49291 Bili Total 0.6 mg/dL 10/06 Unknown COMPREHENSIVE METABOLIC 46727 ALK PHOS 68 U/L 2017 Unknown COMPREHENSIVE METABOLIC 19958 SODIUM 140 mmol/L 10/06 Unknown COMPREHENSIVE METABOLIC 59898 CREATININE 1.12 mg/dL 06/2017 Unknown COMPREHENSIVE METABOLIC 56693 CALCIUM 9.7 mg/dL 2017 Unknown COMPREHENSIVE METABOLIC 95403 POTASSIUM 4.6 mmol/L 10/06 Unknown COMPREHENSIVE METABOLIC 86235 Total Protein 6.6 g/dL Unknown COMPREHENSIVE METABOLIC 94955 Glucose 114 mg/dL 2017 Unknown COMPREHENSIVE METABOLIC 78316 Bicarbonate 26 mmol/L 06/2017 Unknown COMPREHENSIVE METABOLIC 73367 AGAP 7 mmol/L 2017 Unknown GLYCOSYLATED HEMOGLOBIN TEST 50459 Hgb A1c 36337-4 6.1 % 1 05/05/2016 Unknown GFR CALC 3220470 GFR Non Afr Amr >60 mL/min 03/05/2017 Un known GFR CALC 9607380 GFR Afr Amr >60 mL/min 03/05/2017 Unknow n MEAN GLUC 1510445 Calc Mean Gluc 128 mg/dL 03/05/2017 Unkn own COMPREHENSIVE METABOLIC 88131 AST 18 U/L 2016 Unknown COMPREHENSIVE METABOLIC 26876 ALT 20 U/L 2016 Unknown COMPREHENSIVE METABOLIC 85998 BUN 15 mg/dL 2016 Unknown COMPREHENSIVE METABOLIC 66739 ALBUMIN 4.3 g/dL 2016 Unknown COMPREHENSIVE METABOLIC 95053 CHLORIDE 105 mmol/L 03/05 Unknown COMPREHENSIVE METABOLIC 13127 Bili Total 0.5 mg/dL 03/05 Unknown COMPREHENSIVE METABOLIC 33421 ALK PHOS 57 U/L 2016 Unknown COMPREHENSIVE METABOLIC 52651 SODIUM 141 mmol/L 03/05 Unknown COMPREHENSIVE METABOLIC 55948 CREATININE 1.07 mg/dL 02/06 Unknown COMPREHENSIVE METABOLIC 94023 CALCIUM 9.3 mg/dL 2016 Unknown COMPREHENSIVE METABOLIC 77943 POTASSIUM 4.8 mmol/L 03/05 Unknown COMPREHENSIVE METABOLIC 67359 Total Protein 6.2 g/dL Unknown COMPREHENSIVE METABOLIC 37736 Glucose 118 mg/dL 2016 Unknown COMPREHENSIVE METABOLIC 17567 Bicarbonate 29 mmol/L 02/06 Unknown COMPREHENSIVE METABOLIC 92548 AGAP 7 mmol/L 2016 Unknown FREE T4 43162 T4 Free 1.38 ng/dL 03/05/2017 Unknown COMPLETE BLOOD COUNT 8828403 WBC 8.4 10e9/L 03/05/20 17 Unknown COMPLETE BLOOD COUNT 9975637 RBC 4.11 10e12/L 2016 Unknown COMPLETE BLOOD COUNT 9502412 HEMOGLOBIN 12.8 g/dL 03/05/20 17 Unknown COMPLETE BLOOD COUNT 4107992 HEMATOCRIT 40.1 % 03/05/20 17 Unknown COMPLETE BLOOD COUNT 6917385 MCV 97.6 fL 7 Unknown COMPLETE BLOOD COUNT 0853704 MCH 31.1 pg 7 Unknown COMPLETE BLOOD COUNT 0621645 MCHC 31.9 g/dL 7 Unknown COMPLETE BLOOD COUNT 6752683 PLATELET COUNT 184 10e9/L Unknown COMPLETE BLOOD COUNT 6603473 Mean Plt Volume 11.3 fL Unknown COMPLETE BLOOD COUNT 1975514 Neut Auto 62.5 % 7 Unknown COMPLETE BLOOD COUNT 4901383 Lymph Auto 26.4 % 03/05/20 17 Unknown COMPLETE BLOOD COUNT 2970335 [place] Auto 7.9 % 7 Unknown COMPLETE BLOOD COUNT 5423136 RDW 13.5 % 7 Unknown COMPLETE BLOOD COUNT 4064064 Eos Auto 3.0 % 7 Unknown COMPLETE BLOOD COUNT 8910564 Baso Auto 0.2 % 7 Unknown COMPLETE BLOOD COUNT 9354620 Neutrophil Abs 5.25 10e9/L Unknown COMPLETE BLOOD COUNT 9707017 Lymphocyte Abs 2.22 10e9/L Unknown COMPLETE BLOOD COUNT 8242796 Monocyte Abs 0.66 10e9/L 02/06 Unknown COMPLETE BLOOD COUNT 1832449 Eosinophil Abs 0.25 10e9/L Unknown COMPLETE BLOOD COUNT [id number] RDW-SD 46.7 fL 7 Unknown COMPLETE BLOOD COUNT 3646057 Basophil Abs 0.02 10e9/L 02/06 Unknown THYROID STIMULATING HORMONE 24983 TSH 2.330 uIU/mL 03/05/2017 Unknown LIPID GROUP 59129 Cholesterol 135 mg/dL 03/05/2017 Unkno wn LIPID GROUP 68654 Triglyceride 297 mg/dL 03/05/2017 Unkn own LIPID GROUP 93422 HDL CHOLESTEROL 34 mg/dL 03/05/2017 U nknown LIPID GROUP 43171 Chol/HDL Ratio 3.97 ratio 03/05/2017 U nknown LIPID GROUP 22786 NON-HDL Chol 101 mg/dL 03/05/2017 Unkn own LIPID GROUP 28454 LDL Cholesterol 42 mg/dL 03/05/2017 U nknown GLYCOSYLATED HEMOGLOBIN TEST 98459 Hgb A1c 72329-3 6.5 % 1 05/07/2015 Unknown GFR CALC 9278880 GFR Non Afr Amr 55 mL/min 03/06/2016 Unk nown GFR CALC 1131085 GFR Afr Amr >60 mL/min 03/06/2016 Unknow n COMPLETE BLOOD COUNT 4465769 WBC 8.5 10e9/L 03/06/20 16 Unknown COMPLETE BLOOD COUNT 3546042 RBC 4.32 10e12/L 2015 Unknown COMPLETE BLOOD COUNT 7860074 HEMOGLOBIN 13.5 g/dL 03/06/20 16 Unknown COMPLETE BLOOD COUNT [id number] HEMATOCRIT 41.3 % 03/06/20 16 Unknown COMPLETE BLOOD COUNT 7511008 MCV 95.6 fL 6 Unknown COMPLETE BLOOD COUNT 8251959 MCH 31.3 pg 6 Unknown COMPLETE BLOOD COUNT 5306312 MCHC 32.7 g/dL 6 Unknown COMPLETE BLOOD COUNT 8025337 PLATELET COUNT 191 10e9/L 04/2015 Unknown COMPLETE BLOOD COUNT 5396731 Mean Plt Volume 11.7 fL 04/2015 Unknown COMPLETE BLOOD COUNT 4030985 Neut Auto 64.2 % 6 Unknown COMPLETE BLOOD COUNT 2065520 Lymph Auto 25.9 % 03/06/20 16 Unknown COMPLETE BLOOD COUNT [id number] [place] Auto 7.8 % 6 Unknown COMPLETE BLOOD COUNT 4374461 RDW 13.4 % 6 Unknown COMPLETE BLOOD COUNT 7878208 Eos Auto 2.0 % 6 Unknown COMPLETE BLOOD COUNT 4928684 Baso Auto 0.1 % 6 Unknown COMPLETE BLOOD COUNT 2274450 Neutrophil Abs 5.46 10e9/L Unknown COMPLETE BLOOD COUNT [id number] Lymphocyte Abs 2.20 10e9/L Unknown COMPLETE BLOOD COUNT 1195863 Monocyte Abs 0.66 10e9/L 04/2015 Unknown COMPLETE BLOOD COUNT 4062751 Eosinophil Abs 0.17 10e9/L Unknown COMPLETE BLOOD COUNT 1796306 RDW-SD 45.0 fL 6 Unknown COMPLETE BLOOD COUNT [id number] Basophil Abs 0.01 10e9/L 04/2015 Unknown FREE T4 53026 T4 Free 1.34 ng/dL 03/06/2016 Unknown MEAN GLUC 6498470 Calc Mean Gluc 140 mg/dL 03/06/2016 Unkn own COMPREHENSIVE METABOLIC 42269 AST 15 U/L 2015 Unknown COMPREHENSIVE METABOLIC 34006 ALT 18 U/L 2015 Unknown COMPREHENSIVE METABOLIC 56360 BUN 21 mg/dL 2015 Unknown COMPREHENSIVE METABOLIC 90710 ALBUMIN 4.3 g/dL 2015 Unknown COMPREHENSIVE METABOLIC 83463 CHLORIDE 103 mmol/L 03/06 Unknown COMPREHENSIVE METABOLIC 91444 Bili Total 0.4 mg/dL 03/06 Unknown COMPREHENSIVE METABOLIC 74610 ALK PHOS 68 U/L 2015 Unknown COMPREHENSIVE METABOLIC 77883 SODIUM 140 mmol/L 03/06 Unknown COMPREHENSIVE METABOLIC 27037 CREATININE 1.31 mg/dL 04/2015 Unknown COMPREHENSIVE METABOLIC 71925 CALCIUM 9.4 mg/dL 2015 Unknown COMPREHENSIVE METABOLIC 81736 POTASSIUM 4.8 mmol/L 03/06 Unknown COMPREHENSIVE METABOLIC 10768 Total Protein 6.6 g/dL Unknown COMPREHENSIVE METABOLIC 97664 Glucose 142 mg/dL 2015 Unknown COMPREHENSIVE METABOLIC 69597 Bicarbonate 29 mmol/L 04/2015 Unknown COMPREHENSIVE METABOLIC 73879 AGAP 8 mmol/L 2015 Unknown THYROID STIMULATING HORMONE 80481 TSH 2.288 uIU/mL 03/06/2016 Unknown LIPID GROUP 54427 Cholesterol 154 mg/dL 03/06/2016 Unkno wn LIPID GROUP 41724 Triglyceride 266 mg/dL 03/06/2016 Unkn own LIPID GROUP 36126 HDL CHOLESTEROL 38 mg/dL 03/06/2016 U nknown LIPID GROUP 96946 Chol/HDL Ratio 4.05 ratio 03/06/2016 U nknown LIPID GROUP 77447 NON-HDL Chol 116 mg/dL 03/06/2016 Unkn own LIPID GROUP 52440 LDL Cholesterol 63 mg/dL 03/06/2016 U nkno MEAN GLUC 4053733 Mean Glucose 128 mg/dL 08/31/2015 Unknow n COMPLETE BLOOD COUNT 4297440 WBC 8.4 10e9/L 08/31/19 16 Unknown COMPLETE BLOOD COUNT [id number] RBC 4.12 10e12/L 2015 Unknown COMPLETE BLOOD COUNT 4871336 HEMOGLOBIN 12.8 g/dL 08/31/19 16 Unknown COMPLETE BLOOD COUNT 9424164 HEMATOCRIT 39.6 % 08/31/19 16 Unknown COMPLETE BLOOD COUNT 2866963 MCV 96.1 fL 6 Unknown COMPLETE BLOOD COUNT 0275030 MCH 31.1 pg 6 Unknown COMPLETE BLOOD COUNT 7545530 MCHC 32.3 g/dL 6 Unknown COMPLETE BLOOD COUNT 6362761 PLATELET COUNT 184 10e9/L Unknown COMPLETE BLOOD COUNT 9085684 Mean Plt Volume 12.0 fL Unknown COMPLETE BLOOD COUNT 2742489 Neut Auto 59.8 % 6 Unknown COMPLETE BLOOD COUNT 5120172 Lymph Auto 27.9 % 08/31/19 16 Unknown COMPLETE BLOOD COUNT 7699606 [place] Auto 9.1 % 6 Unknown COMPLETE BLOOD COUNT 2382064 RDW 13.6 % 6 Unknown COMPLETE BLOOD COUNT 8016324 Eos Auto 3.1 % 6 Unknown COMPLETE BLOOD COUNT 0849547 Baso Auto 0.1 % 6 Unknown COMPLETE BLOOD COUNT 7055934 Neutrophil Abs 5.02 10e9/L Unknown COMPLETE BLOOD COUNT 5670284 Lymphoctye Abs 2.34 10e9/L Unknown COMPLETE BLOOD COUNT 2645517 Monocyte Abs 0.76 10e9/L 08/05 Unknown COMPLETE BLOOD COUNT 6880307 Eosinophil Abs 0.26 10e9/L Unknown COMPLETE BLOOD COUNT 8589423 RDW-SD 46.3 fL 6 Unknown COMPLETE BLOOD COUNT 5974133 Basophil Abs 0.01 10e9/L 08/05 Unknown GLYCOSYLATED HEMOGLOBIN TEST 66094 Hgb A1c 73849-2 6.1 % 0 08/31/2015 Unknown GFR CALC 5720112 GFR Non Afr Amr >60 mL/min 08/31/2015 Un known GFR CALC 4564266 GFR Afr Amr >60 mL/min 08/31/2015 Unknow n FREE T4 01692 T4 Free 1.21 ng/dL 08/31/2015 Unknown THYROID STIMULATING HORMONE 74406 TSH 2.988 uIU/mL 08/31/2015 Unknown COMPREHENSIVE METABOLIC 06070 AST 16 U/L 2015 Unknown COMPREHENSIVE METABOLIC 19687 ALT 19 U/L 2015 Unknown COMPREHENSIVE METABOLIC 63168 BUN 17 mg/dL 2015 Unknown COMPREHENSIVE METABOLIC 93669 ALBUMIN 4.3 g/dL 2015 Unknown COMPREHENSIVE METABOLIC 81576 CHLORIDE 107 mmol/L 08/30 Unknown COMPREHENSIVE METABOLIC 92833 Bili Total 0.4 mg/dL 08/30 Unknown COMPREHENSIVE METABOLIC 94428 ALK PHOS 66 U/L 2015 Unknown COMPREHENSIVE METABOLIC 71724 SODIUM 140 mmol/L 08/30 Unknown COMPREHENSIVE METABOLIC 25991 CREATININE 1.07 mg/dL 08/05 Unknown COMPREHENSIVE METABOLIC 09088 CALCIUM 9.5 mg/dL 2015 Unknown COMPREHENSIVE METABOLIC 68368 POTASSIUM 4.5 mmol/L 08/30 Unknown COMPREHENSIVE METABOLIC 14333 Total Protein 6.7 g/dL Unknown COMPREHENSIVE METABOLIC 02061 Glucose 122 mg/dL 2015 Unknown COMPREHENSIVE METABOLIC 60625 Bicarbonate 26 mmol/L 08/05 Unknown COMPREHENSIVE METABOLIC 45516 AGAP 7 mmol/L 2015 Unknown LIPID GROUP 72360 Cholesterol 171 mg/dL 08/31/2015 Unkno wn LIPID GROUP 66887 Triglyceride 428 mg/dL 08/31/2015 Unkn own LIPID GROUP 68153 HDL CHOLESTEROL 35 mg/dL 08/31/2015 U nknown LIPID GROUP 21111 Chol/HDL Ratio 4.89 ratio 08/31/2015 U nknown LIPID GROUP 54568 NON-HDL Chol 136 mg/dL 08/31/2015 Unkn own LIPID GROUP 66493 LDL Cholesterol 50 mg/dL 08/31/2015 U nknown PSA EQUIMOLAR JERSON 40071 PSA Total 0.47 ng/mL 6 Unknown GFR CALC 9821853 GFR AA >60 ML/MIN 01/12/2015 Unknown GFR CALC 5764249 GFR NON-AA >60 ML/MIN 01/12/2015 Unknown COMPREHENSIVE METABOLIC 66342 AST 18 U/L 2014 Unknown COMPREHENSIVE METABOLIC 74434 ALT 19 IU/L 2014 Unknown COMPREHENSIVE METABOLIC 31660 BUN 19 MG/DL 2014 Unknown COMPREHENSIVE METABOLIC 70815 ALBUMIN 4.7 GM/DL 2014 Unknown COMPREHENSIVE METABOLIC 22322 CHLORIDE 104 MMOL/L 01/12 Unknown COMPREHENSIVE METABOLIC 44699 BILI TOT 0.8 MG/DL 2014 Unknown COMPREHENSIVE METABOLIC 61451 ALK PHOS 58 U/L 2014 Unknown COMPREHENSIVE METABOLIC 99592 SODIUM 139 MMOL/L 01/12 Unknown COMPREHENSIVE METABOLIC 23442 CREATININE 1.09 MG/DL 12/2014 Unknown COMPREHENSIVE METABOLIC 52934 CALCIUM 9.6 MG/DL 2014 Unknown COMPREHENSIVE METABOLIC 38313 POTASSIUM 4.4 MMOL/L 01/12 Unknown COMPREHENSIVE METABOLIC 63526 PROT TOT 6.7 GM/DL 2014 Unknown COMPREHENSIVE METABOLIC 43893 Glucose 109 MG/DL 2014 Unknown COMPREHENSIVE METABOLIC 95761 BICARB 27 MMOL/L 2014 Unknown COMPREHENSIVE METABOLIC 13541 ANION GAP 8 MEQ/L 2014 Unknown LIPID GROUP 31144 HDL TEST 36 MG/DL 01/12/2015 Unknown LIPID GROUP 08513 TRIG 220 MG/DL 01/12/2015 Unknown LIPID GROUP 75038 TEST LDL 58 MG/DL 01/12/2015 Unknown LIPID GROUP 35469 CHOL 138 MG/DL 01/12/2015 Unknown LIPID GROUP 99269 RCHOL/HDL 3.83 RATIO 01/12/2015 Unknow n LIPID GROUP 09619 NON-HDL CH 102 MG/DL 01/12/2015 Unknow n GLYCOSYLATED HEMOGLOBIN TEST 47623 A1C HPLC 65099-6 6.1 % 1 Unknown COMPLETE BLOOD COUNT 0024034 WBC 7.1 10e9/L 01/13/20 15 Unknown COMPLETE BLOOD COUNT 8046820 RBC 4.38 10e12/L 2014 Unknown COMPLETE BLOOD COUNT 8095655 HGB 13.7 g/dL 5 Unknown COMPLETE BLOOD COUNT 8021454 HCT DET 41.3 % 5 Unknown COMPLETE BLOOD COUNT 8556831 MCV 94.3 fL 5 Unknown COMPLETE BLOOD COUNT 7107655 MCH 31.3 pg 5 Unknown COMPLETE BLOOD COUNT 4603608 MCHC 33.2 g/dL 5 Unknown COMPLETE BLOOD COUNT 0600389 PLT 174 10e9/L 01/13/20 15 Unknown COMPLETE BLOOD COUNT 6138065 MPV 11.8 fL 5 Unknown COMPLETE BLOOD COUNT 2200680 SAMIR % 61.3 % 5 Unknown COMPLETE BLOOD COUNT 0958240 LY % 28.3 % 5 Unknown COMPLETE BLOOD COUNT 4859131 MON % 7.6 % 5 Unknown COMPLETE BLOOD COUNT 4191179 EOS % 2.7 % 5 Unknown COMPLETE BLOOD COUNT 6231547 BASO % 0.1 % 5 Unknown COMPLETE BLOOD COUNT 4633886 RDW 13.1 % 5 Unknown COMPLETE BLOOD COUNT 2128298 ABS SAMIR 4.35 10e9/L 015 Unknown COMPLETE BLOOD COUNT 0497316 ABS LYMPH 2.01 10e9/L 015 Unknown COMPLETE BLOOD COUNT 0960728 ABS MONO 0.54 10e9/L 015 Unknown COMPLETE BLOOD COUNT 5897923 ABS EOS 0.19 10e9/L 015 Unknown COMPLETE BLOOD COUNT 5343260 ABS BASO 0.01 10e9/L 015 Unknown COMPLETE BLOOD COUNT 4675906 RDW-SD 43.9 fL 5 Unknown GLYCOSYLATED HEMOGLOBIN TEST 23740 A1C HPLC 09635-6 6.1 % 0 08/15/2014 Unknown COMPLETE BLOOD COUNT 9680915 WBC 9.7 10e9/L 08/16/19 15 Unknown COMPLETE BLOOD COUNT 3357539 RBC 4.29 10e12/L 2014 Unknown COMPLETE BLOOD COUNT 1005766 HGB 13.3 g/dL 5 Unknown COMPLETE BLOOD COUNT 6073148 HCT DET 40.5 % 5 Unknown COMPLETE BLOOD COUNT 4713094 MCV 94.4 fL 5 Unknown COMPLETE BLOOD COUNT 1223028 MCH 31.0 pg 5 Unknown COMPLETE BLOOD COUNT 1615749 MCHC 32.8 g/dL 5 Unknown COMPLETE BLOOD COUNT [id number] PLT 227 10e9/L 08/16/19 15 Unknown COMPLETE BLOOD COUNT [id number] MPV 11.0 fL 5 Unknown COMPLETE BLOOD COUNT [id number] SAMIR % 66.4 % 5 Unknown COMPLETE BLOOD COUNT [id number] LY % 23.7 % 5 Unknown COMPLETE BLOOD COUNT [id number] MON % 8.1 % 5 Unknown COMPLETE BLOOD COUNT [id number] EOS % 1.6 % 5 Unknown COMPLETE BLOOD COUNT [id number] BASO % 0.2 % 5 Unknown COMPLETE BLOOD COUNT [id number] RDW 13.4 % 5 Unknown COMPLETE BLOOD COUNT [id number] ABS SAMIR 6.44 10e9/L 015 Unknown COMPLETE BLOOD COUNT [id number] ABS LYMPH 2.30 10e9/L 015 Unknown COMPLETE BLOOD COUNT [id number] ABS MONO 0.79 10e9/L 015 Unknown COMPLETE BLOOD COUNT [id number] ABS EOS 0.16 10e9/L 015 Unknown COMPLETE BLOOD COUNT [id number] ABS BASO 0.02 10e9/L 015 Unknown COMPLETE BLOOD COUNT 2785401 RDW-SD 44.7 fL 5 Unknown COMPREHENSIVE METABOLIC 88215 AST 17 U/L 2014 Unknown COMPREHENSIVE METABOLIC 37840 ALT 23 IU/L 2014 Unknown COMPREHENSIVE METABOLIC 48907 BUN 16 MG/DL 2014 Unknown COMPREHENSIVE METABOLIC 06674 ALBUMIN 4.3 GM/DL 2014 Unknown COMPREHENSIVE METABOLIC 60780 CHLORIDE 107 MMOL/L 08/15 Unknown COMPREHENSIVE METABOLIC 01211 BILI TOT 0.4 MG/DL 2014 Unknown COMPREHENSIVE METABOLIC 46475 ALK PHOS 91 U/L 2014 Unknown COMPREHENSIVE METABOLIC 29037 SODIUM 139 MMOL/L 08/15 Unknown COMPREHENSIVE METABOLIC 28427 CREATININE 1.07 MG/DL 08/04 Unknown COMPREHENSIVE METABOLIC 06837 CALCIUM 9.6 MG/DL 2014 Unknown COMPREHENSIVE METABOLIC 75159 POTASSIUM 4.6 MMOL/L 08/15 Unknown COMPREHENSIVE METABOLIC 70179 PROT TOT 6.7 GM/DL 2014 Unknown COMPREHENSIVE METABOLIC 54694 Glucose 111 MG/DL 2014 Unknown COMPREHENSIVE METABOLIC 85749 BICARB 27 MMOL/L 2014 Unknown COMPREHENSIVE METABOLIC 11431 ANION GAP 5 MEQ/L 2014 Unknown GFR CALC [id number] GFR AA >60 ML/MIN 08/15/2014 Unknown GFR CALC [id number] GFR NON-AA >60 ML/MIN 08/15/2014 Unknown THYROID STIMULATING HORMONE 23007 TSH 1.598 uIU/ML 08/15/2014 Unknown LIPID GROUP 57905 HDL TEST 33 MG/DL 08/15/2014 Unknown LIPID GROUP 85048 TRIG 187 MG/DL 08/15/2014 Unknown [facility] 84542 TEST LDL 58 MG/DL 08/15/2014 Unknown [facility] 69957 CHOL 128 MG/DL 08/15/2014 Unknown [facility] 26702 RCHOL/HDL 3.88 RATIO 08/15/2014 Unknow n [facility] 85298 NON-HDL CH 95 MG/DL 08/15/2014 Unknow n PSA EQUIMOLAR JERSON 08792 PSA EQ 0.70 NG/ML 5 Unknown FREE T4 71215 FREE T4 1.32 NG/DL 08/15/2014 Unknown GFR CALC 0132606 GFR AA >60 ML/MIN 12/14/2013 Unknown GFR CALC 0757646 GFR NON-AA 58.0L ML/MIN 12/14/2013 Unkno wn COMPLETE BLOOD COUNT [id number] WBC 8.7 10e9/L 12/15/19 14 Unknown COMPLETE BLOOD COUNT 7043514 RBC 4.32 10e12/L 2013 Unknown COMPLETE BLOOD COUNT 4271671 HGB 13.5 g/dL 4 Unknown COMPLETE BLOOD COUNT 5474916 HCT DET 40.6 % 4 Unknown COMPLETE BLOOD COUNT 2337687 MCV 94.0 fL 4 Unknown COMPLETE BLOOD COUNT 8175815 MCH 31.3 pg 4 Unknown COMPLETE BLOOD COUNT 4229804 MCHC 33.3 g/dL 4 Unknown COMPLETE BLOOD COUNT [id number] PLT 205 10e9/L 12/15/19 14 Unknown COMPLETE BLOOD COUNT 7189937 MPV 11.7 fL 4 Unknown COMPLETE BLOOD COUNT 6135520 SAMIR % 62.5 % 4 Unknown COMPLETE BLOOD COUNT 5622476 LY % 26.9 % 4 Unknown COMPLETE BLOOD COUNT [id number] MON % 8.8 % 4 Unknown COMPLETE BLOOD COUNT 9159965 EOS % 1.7 % 4 Unknown COMPLETE BLOOD COUNT 8359536 BASO % 0.1 % 4 Unknown COMPLETE BLOOD COUNT 9735131 RDW 13.4 % 4 Unknown COMPLETE BLOOD COUNT 9969128 ABS SAMIR 5.44 10e9/L 014 Unknown COMPLETE BLOOD COUNT 7667790 ABS LYMPH 2.34 10e9/L 014 Unknown COMPLETE BLOOD COUNT 1674594 ABS MONO 0.77 10e9/L 014 Unknown COMPLETE BLOOD COUNT 7042860 ABS EOS 0.15 10e9/L 014 Unknown COMPLETE BLOOD COUNT 8228029 ABS BASO 0.01 10e9/L 014 Unknown COMPLETE BLOOD COUNT 4398329 RDW-SD 44.7 fL 4 Unknown COMPREHENSIVE METABOLIC 19579 AST 14 U/L 2013 Unknown COMPREHENSIVE METABOLIC 76851 ALT 12 IU/L 2013 Unknown COMPREHENSIVE METABOLIC 18921 BUN 24 MG/DL 2013 Unknown COMPREHENSIVE METABOLIC 12050 ALBUMIN 4.5 GM/DL 2013 Unknown COMPREHENSIVE METABOLIC 69515 CHLORIDE 104 MMOL/L 12/14 Unknown COMPREHENSIVE METABOLIC 05226 BILI TOT 0.6 MG/DL 2013 Unknown COMPREHENSIVE METABOLIC 00011 ALK PHOS 82 U/L 2013 Unknown COMPREHENSIVE MET[facility]OLIC 69880 SODIUM 135 MMOL/L 12/14 Unknown COMPREHENSIVE METABOLIC 08456 CREATININE 1.25 MG/DL 12/05 Unknown COMPREHENSIVE MET[facility]OLIC 55690 CALCIUM 9.8 MG/DL 2013 Unknown COMPREHENSIVE METABOLIC 60298 POTASSIUM 4.7 MMOL/L 12/14 Unknown COMPREHENSIVE MET[facility]OLIC 95890 PROT TOT 6.7 GM/DL 2013 Unknown COMPREHENSIVE METABOLIC 47321 Glucose 126 MG/DL 2013 Unknown COMPREHENSIVE METABOLIC 21311 BICARB 27 MMOL/L 2013 Unknown COMPREHENSIVE METABOLIC 92575 ANION GAP 4 MEQ/L 2013 Unknown THYROID STIMULATING HORMONE 38300 TSH 3.281 uIU/ML 12/14/2013 Unknown FREE T4 19965 FREE T4 1.28 NG/DL 12/14/2013 Unknown [facility] 79833 HDL TEST 36 MG/DL 12/14/2013 Unknown [facility] 65723 TRIG 253 MG/DL 12/14/2013 Unknown [facility] 31203 TEST LDL 56 MG/DL 12/14/2013 Unknown [facility] 69192 CHOL 143 MG/DL 12/14/2013 Unknown [facility] 54909 RCHOL/HDL 3.97 RATIO 12/14/2013 Unknow n [facility] 01129 NON-HDL CH 107 MG/DL 12/14/2013 Unknow n GLYCOSYLATED HEMOGLOBIN TEST 68434 A1C HPLC 93821-9 6.1 % 0 12/14/2013 Unknown GLYCOSYLATED HEMOGLOBIN TEST 68016 A1C HPLC 26814-1 6.0 % 0 06/08/2013 Unknown [facility] 49662 HDL TEST 39 MG/DL 06/08/2013 Unknown [facility] 56868 TRIG 166 MG/DL 06/08/2013 Unknown [facility] 48680 TEST LDL 86 MG/DL 06/08/2013 Unknown [facility] 87096 CHOL 158 MG/DL 06/08/2013 Unknown [facility] 55819 RCHOL/HDL 4.05 RATIO 06/08/2013 Unknow n COMPREHENSIVE METABOLIC 88643 AST 17 U/L 2013 Unknown COMPREHENSIVE METABOLIC 27651 ALT 25 IU/L 2013 Unknown COMPREHENSIVE METABOLIC 61374 BUN 18 MG/DL 2013 Unknown COMPREHENSIVE METABOLIC 87782 ALBUMIN 4.5 GM/DL 2013 Unknown COMPREHENSIVE METABOLIC 40740 CHLORIDE 103 MMOL/L 06/08 Unknown COMPREHENSIVE METABOLIC 67323 BILI TOT 0.4 MG/DL 2013 Unknown COMPREHENSIVE METABOLIC 51783 ALK PHOS 72 U/L 2013 Unknown COMPREHENSIVE METABOLIC 28287 SODIUM 137 MMOL/L 06/08 Unknown COMPREHENSIVE METABOLIC 88165 CREATININE 1.07 MG/DL 08/2013 Unknown COMPREHENSIVE METABOLIC 17964 CALCIUM 9.7 MG/DL 2013 Unknown COMPREHENSIVE METABOLIC 73298 POTASSIUM 4.7 MMOL/L 06/08 Unknown COMPREHENSIVE METABOLIC 23067 PROT TOT 6.6 GM/DL 2013 Unknown COMPREHENSIVE METABOLIC 21331 Glucose 130 MG/DL 2013 Unknown COMPREHENSIVE METABOLIC 06921 BICARB 25 MMOL/L 2013 Unknown COMPREHENSIVE METABOLIC 66608 ANION GAP 9 MEQ/L 2013 Unknown FREE T4 28623 FREE T4 1.29 NG/DL 06/08/2013 Unknown THYROID STIMULATING HORMONE 24184 TSH 2.445 uIU/ML 06/08/2013 Unknown GFR CALC 9776198 GFR AA >60 ML/MIN 06/08/2013 Unknown GFR CALC 4094044 GFR NON-AA >60 ML/MIN 06/08/2013 Unknown COMPLETE BLOOD COUNT 7915434 WBC 8.2 10e9/L 06/09/19 14 Unknown COMPLETE BLOOD COUNT 0593168 RBC 4.63 10e12/L 2013 Unknown COMPLETE BLOOD COUNT 0319820 HGB 14.1 g/dL 4 Unknown COMPLETE BLOOD COUNT 7289234 HCT DET 42.6 % 4 Unknown COMPLETE BLOOD COUNT 2017086 MCV 92.0 fL 4 Unknown COMPLETE BLOOD COUNT 4794062 MCH 30.5 pg 4 Unknown COMPLETE BLOOD COUNT 4382263 MCHC 33.1 g/dL 4 Unknown COMPLETE BLOOD COUNT 2857602 PLT 222 10e9/L 06/09/19 14 Unknown COMPLETE BLOOD COUNT 4404762 MPV 10.8 fL 4 Unknown COMPLETE BLOOD COUNT 9009669 SAMIR % 60.8 % 4 Unknown COMPLETE BLOOD COUNT 4469448 LY % 29.2 % 4 Unknown COMPLETE BLOOD COUNT 3033776 MON % 7.6 % 4 Unknown COMPLETE BLOOD COUNT 3199501 EOS % 2.3 % 4 Unknown COMPLETE BLOOD COUNT 8459640 BASO % 0.1 % 4 Unknown COMPLETE BLOOD COUNT 5489487 RDW 13.7 % 4 Unknown COMPLETE BLOOD COUNT 7463743 ABS SAMIR 4.99 10e9/L 014 Unknown COMPLETE BLOOD COUNT 4025391 ABS LYMPH 2.39 10e9/L 014 Unknown COMPLETE BLOOD COUNT 9077558 ABS MONO 0.62 10e9/L 014 Unknown COMPLETE BLOOD COUNT 7594808 ABS EOS 0.19 10e9/L 014 Unknown COMPLETE BLOOD COUNT 1439608 ABS BASO 0.01 10e9/L 014 Unknown COMPLETE BLOOD COUNT 3288102 RDW-SD 45.2 fL 4 Unknown [facility] 86786 HDL TEST 40 MG/DL 11/11/2012 Unknown [facility] 74605 TRIG 153 MG/DL 11/11/2012 Unknown [facility] 77869 TEST LDL 71 MG/DL 11/11/2012 Unknown [facility] 06423 CHOL 142 MG/DL 11/11/2012 Unknown [facility] 60971 RCHOL/HDL 3.55 RATIO 11/11/2012 Unknow n GFR CALC 5938712 GFR AA >60 ML/MIN 11/11/2012 Unknown GFR CALC 2772323 GFR NON-AA 57.0L ML/MIN 11/11/2012 Unkno wn HEMOGLOBIN A1C (GLYCOSYLATED) 1860362 A1C HPLC 55508-2 5.9 % 11/11/2012 Unknown THYROID STIMULATING HORMONE 23427 TSH 2.439 uIU/ML 11/11/2012 Unknown COMPLETE BLOOD COUNT 3357134 WBC 8.5 10e9/L 11/12/19 13 Unknown COMPLETE BLOOD COUNT 8263336 RBC 4.42 10e12/L 2012 Unknown COMPLETE BLOOD COUNT 9742426 HGB 13.7 g/dL 3 Unknown COMPLETE BLOOD COUNT 3694308 HCT DET 41.3 % 3 Unknown COMPLETE BLOOD COUNT 1856472 MCV 93.4 fL 3 Unknown COMPLETE BLOOD COUNT 9704749 MCH 31.0 pg 3 Unknown COMPLETE BLOOD COUNT 4322679 MCHC 33.2 g/dL 3 Unknown COMPLETE BLOOD COUNT 6225618 PLT 220 10e9/L 11/12/19 13 Unknown COMPLETE BLOOD COUNT 0035232 MPV 10.8 fL 3 Unknown COMPLETE BLOOD COUNT 9264847 SAMIR % 60.4 % 3 Unknown COMPLETE BLOOD COUNT 9965349 LY % 28.7 % 3 Unknown COMPLETE BLOOD COUNT 8303835 MON % 8.0 % 3 Unknown COMPLETE BLOOD COUNT 1220978 EOS % 2.8 % 3 Unknown COMPLETE BLOOD COUNT 1821691 BASO % 0.1 % 3 Unknown COMPLETE BLOOD COUNT 4620964 RDW 13.7 % 3 Unknown COMPLETE BLOOD COUNT 5463086 ABS SAMIR 5.13 10e9/L 013 Unknown COMPLETE BLOOD COUNT 5885607 ABS LYMPH 2.44 10e9/L 013 Unknown COMPLETE BLOOD COUNT 4455145 ABS MONO 0.68 10e9/L 013 Unknown COMPLETE BLOOD COUNT 7105946 ABS EOS 0.24 10e9/L 013 Unknown COMPLETE BLOOD COUNT 8347342 ABS BASO 0.01 10e9/L 013 Unknown COMPLETE BLOOD COUNT 5623974 RDW-SD 45.6 fL 3 Unknown COMPREHENSIVE METABOLIC 30161 AST 19 U/L 2012 Unknown COMPREHENSIVE METABOLIC 72228 ALT 28 IU/L 2012 Unknown COMPREHENSIVE METABOLIC 85476 BUN 31 MG/DL 2012 Unknown COMPREHENSIVE METABOLIC 98587 ALBUMIN 4.7 GM/DL 2012 Unknown COMPREHENSIVE METABOLIC 99525 CHLORIDE 106 MMOL/L 11/11 Unknown COMPREHENSIVE METABOLIC 80610 BILI TOT 0.5 MG/DL 2012 Unknown COMPREHENSIVE METABOLIC 89216 ALK PHOS 64 U/L 2012 Unknown COMPREHENSIVE METABOLIC 73471 SODIUM 136 MMOL/L 11/11 Unknown COMPREHENSIVE METABOLIC 17336 CREATININE 1.27 MG/DL 11/2012 Unknown COMPREHENSIVE METABOLIC 54361 CALCIUM 9.4 MG/DL 2012 Unknown COMPREHENSIVE METABOLIC 59221 POTASSIUM 4.9 MMOL/L 11/11 Unknown COMPREHENSIVE METABOLIC 02752 PROT TOT 6.7 GM/DL 2012 Unknown COMPREHENSIVE METABOLIC 76256 Glucose 108 MG/DL 2012 Unknown COMPREHENSIVE METABOLIC 95393 BICARB 21 MMOL/L 2012 Unknown COMPREHENSIVE METABOLIC 19117 ANION GAP 9 MEQ/L 2012 Unknown THYROID STIMULATING HORMONE 13669 TSH 2.572 uIU/ML 05/04/2012 Unknown COMPLETE BLOOD COUNT 9348091 WBC 9.3 10e9/L 05/04/19 13 Unknown COMPLETE BLOOD COUNT 7226609 RBC 4.43 10e12/L 2012 Unknown COMPLETE BLOOD COUNT 3097225 HGB 14.2 g/dL 3 Unknown COMPLETE BLOOD COUNT 7247333 HCT DET 41.1 % 3 Unknown COMPLETE BLOOD COUNT 9807051 MCV 92.8 fL 3 Unknown COMPLETE BLOOD COUNT 2093373 MCH 32.1 pg 3 Unknown COMPLETE BLOOD COUNT 8897722 MCHC 34.5 g/dL 3 Unknown COMPLETE BLOOD COUNT 6392658 PLT 193 10e9/L 05/04/19 13 Unknown COMPLETE BLOOD COUNT 4333251 MPV 10.8 fL 3 Unknown COMPLETE BLOOD COUNT 3464093 SAMIR % 63.0 % 3 Unknown COMPLETE BLOOD COUNT 9240339 LY % 25.3 % 3 Unknown COMPLETE BLOOD COUNT 1179840 MON % 9.1 % 3 Unknown COMPLETE BLOOD COUNT 5354206 EOS % 2.5 % 3 Unknown COMPLETE BLOOD COUNT 0528888 BASO % 0.1 % 3 Unknown COMPLETE BLOOD COUNT 1069671 RDW 12.6 % 3 Unknown COMPLETE BLOOD COUNT 5381943 ABS SAMIR 5.86 10e9/L 013 Unknown COMPLETE BLOOD COUNT 5322562 ABS LYMPH 2.35 10e9/L 013 Unknown COMPLETE BLOOD COUNT 1046524 ABS MONO 0.85 10e9/L 013 Unknown COMPLETE BLOOD COUNT 7411582 ABS EOS 0.23 10e9/L 013 Unknown COMPLETE BLOOD COUNT 1193034 ABS BASO 0.01 10e9/L 013 Unknown COMPLETE BLOOD COUNT 1898442 RDW-SD 41.2 fL 3 Unknown [facility] 11187 HDL TEST 35 MG/DL 05/04/2012 Unknown [facility] 83538 TRIG 236 MG/DL 05/04/2012 Unknown [facility] 59833 TEST LDL 64 MG/DL 05/04/2012 Unknown [facility] 54104 CHOL 146 MG/DL 05/04/2012 Unknown [facility] 58045 RCHOL/HDL 4.17 RATIO 05/04/2012 Unknow n COMPREHENSIVE METABOLIC 46405 AST 23 U/L 2012 Unknown COMPREHENSIVE METABOLIC 79781 ALT 33 IU/L 2012 Unknown COMPREHENSIVE METABOLIC 57096 BUN 16 MG/DL 2012 Unknown COMPREHENSIVE METABOLIC 26120 ALBUMIN 4.8 GM/DL 2012 Unknown COMPREHENSIVE METABOLIC 60394 CHLORIDE 104 MMOL/L 05/04 Unknown COMPREHENSIVE METABOLIC 99199 BILI TOT 0.5 MG/DL 2012 Unknown COMPREHENSIVE METABOLIC 16794 ALK PHOS 70 U/L 2012 Unknown COMPREHENSIVE METABOLIC 65427 SODIUM 138 MMOL/L 05/04 Unknown COMPREHENSIVE METABOLIC 77083 CREATININE 1.08 MG/DL 04/07 Unknown COMPREHENSIVE METABOLIC 35148 CALCIUM 9.7 MG/DL 2012 Unknown COMPREHENSIVE METABOLIC 15174 POTASSIUM 4.4 MMOL/L 05/04 Unknown COMPREHENSIVE METABOLIC 28887 PROT TOT 6.8 GM/DL 2012 Unknown COMPREHENSIVE METABOLIC 96315 Glucose 114 MG/DL 2012 Unknown COMPREHENSIVE METABOLIC 45600 BICARB 27 MMOL/L 2012 Unknown COMPREHENSIVE METABOLIC 56799 ANION GAP 7 MEQ/L 2012 Unknown FREE T4 94785 FREE T4 1.11 NG/DL 05/04/2012 Unknown GFR CALC 6106491 GFR AA >60 ML/MIN 05/04/2012 Unknown GFR CALC 7891617 GFR NON-AA >60 ML/MIN 05/04/2012 Unknown GLYCOSYLATED HEMOGLOBIN TEST 19976 A1C HPLC 25231-3 5.8 % 0 10/29/2011 Unknown COMPREHENSIVE METABOLIC 47362 AST 17 U/L 2011 Unknown COMPREHENSIVE METABOLIC 02884 ALT 21 IU/L 2011 Unknown COMPREHENSIVE METABOLIC 26993 BUN 17 MG/DL 2011 Unknown COMPREHENSIVE METABOLIC 05436 ALBUMIN 4.8 GM/DL 2011 Unknown COMPREHENSIVE METABOLIC 39875 CHLORIDE 106 MMOL/L 10/28 Unknown COMPREHENSIVE METABOLIC 35014 BILI TOT 0.6 MG/DL 2011 Unknown COMPREHENSIVE METABOLIC 13670 ALK PHOS 57 U/L 2011 Unknown COMPREHENSIVE METABOLIC 14097 SODIUM 139 MMOL/L 10/28 Unknown COMPREHENSIVE METABOLIC 27170 CREATININE 1.08 MG/DL 10/05 Unknown COMPREHENSIVE METABOLIC 94893 CALCIUM 9.6 MG/DL 2011 Unknown COMPREHENSIVE METABOLIC 92204 POTASSIUM 4.4 MMOL/L 10/28 Unknown COMPREHENSIVE METABOLIC 35294 PROT TOT 6.9 GM/DL 2011 Unknown COMPREHENSIVE METABOLIC 22807 Glucose 104 MG/DL 2011 Unknown COMPREHENSIVE METABOLIC 79147 BICARB 25 MMOL/L 2011 Unknown COMPREHENSIVE METABOLIC 94340 ANION GAP 8 MEQ/L 2011 Unknown [facility] 98100 HDL TEST 39 MG/DL 10/29/2011 Unknown [facility] 24304 TRIG 176 MG/DL 10/29/2011 Unknown [facility] 03687 TEST LDL 70 MG/DL 10/29/2011 Unknown [facility] 63474 CHOL 144 MG/DL 10/29/2011 Unknown [facility] 79465 RCHOL/HDL 3.69 RATIO 10/29/2011 Unknow n GFR CALC 8085925 GFR AA >60 ML/MIN 10/29/2011 Unknown GFR CALC 4416831 GFR NON-AA >60 ML/MIN 10/29/2011 Unknown GFR CALC 2603991 GFR AA >60 ML/MIN 03/14/2011 Unknown GFR CALC 5405066 GFR NON-AA >60 ML/MIN 03/14/2011 Unknown GLYCOSYLATED HEMOGLOBIN TEST 22292 A1C HPLC 76311-3 5.7 % 1 05/15/2010 Unknown COMPREHENSIVE METABOLIC 45495 AST 18 U/L 2010 Unknown COMPREHENSIVE METABOLIC 30167 ALT 25 IU/L 2010 Unknown COMPREHENSIVE METABOLIC 70027 BUN 15 MG/DL 2010 Unknown COMPREHENSIVE METABOLIC 76831 ALBUMIN 4.6 GM/DL 2010 Unknown COMPREHENSIVE METABOLIC 09371 CHLORIDE 107 MMOL/L 03/14 Unknown COMPREHENSIVE METABOLIC 31854 BILI TOT 0.6 MG/DL 2010 Unknown COMPREHENSIVE METABOLIC 62943 ALK PHOS 54 U/L 2010 Unknown COMPREHENSIVE METABOLIC 15115 SODIUM 140 MMOL/L 03/14 Unknown COMPREHENSIVE METABOLIC 47212 CREATININE 1.02 MG/DL 12/2010 Unknown COMPREHENSIVE METABOLIC 32886 CALCIUM 9.4 MG/DL 2010 Unknown COMPREHENSIVE METABOLIC 59620 POTASSIUM 4.6 MMOL/L 03/14 Unknown COMPREHENSIVE METABOLIC 41642 PROT TOT 7.0 GM/DL 2010 Unknown COMPREHENSIVE METABOLIC 64857 Glucose 107 MG/DL 2010 Unknown COMPREHENSIVE METABOLIC 02775 BICARB 28 MMOL/L 2010 Unknown COMPREHENSIVE METABOLIC 57071 ANION GAP 5 MEQ/L 2010 Unknown [facility] GROUP 91834 HDL TEST 39 MG/DL 03/14/2011 Unknown [facility] 16612 TRIG 157 MG/DL 03/14/2011 Unknown [facility] 34373 TEST LDL 66 MG/DL 03/14/2011 Unknown [facility] 32759 CHOL 136 MG/DL 03/14/2011 Unknown [facility] 42652 RCHOL/HDL 3.49 RATIO 03/14/2011 Unknow n GFR CALC 4594717 GFR AA >60 ML/MIN 11/11/2010 Unknown GFR CALC 2432248 GFR NON-AA >60 ML/MIN 11/11/2010 Unknown [facility] 22882 HDL TEST 39 MG/DL 11/11/2010 Unknown [facility] 78442 TRIG 212 MG/DL 11/11/2010 Unknown [facility] 65238 TEST LDL 67 MG/DL 11/11/2010 Unknown [facility] 31163 CHOL 148 MG/DL 11/11/2010 Unknown [facility] 38037 RCHOL/HDL 3.79 RATIO 11/11/2010 Unknow n COMPREHENSIVE METABOLIC 47062 AST 17 U/L 2010 Unknown COMPREHENSIVE METABOLIC 23671 ALT 21 IU/L 2010 Unknown COMPREHENSIVE METABOLIC 73133 BUN 16 MG/DL 2010 Unknown COMPREHENSIVE METABOLIC 08950 ALBUMIN 4.6 GM/DL 2010 Unknown COMPREHENSIVE METABOLIC 06300 CHLORIDE 106 MMOL/L 11/11 Unknown COMPREHENSIVE METABOLIC 11968 BILI TOT 0.5 MG/DL 2010 Unknown COMPREHENSIVE METABOLIC 66920 ALK PHOS 61 U/L 2010 Unknown COMPREHENSIVE METABOLIC 24155 SODIUM 139 MMOL/L 11/11 Unknown COMPREHENSIVE METABOLIC 93590 CREATININE 1.00 MG/DL 11/2010 Unknown COMPREHENSIVE METABOLIC 72546 CALCIUM 9.5 MG/DL 2010 Unknown COMPREHENSIVE METABOLIC 21590 POTASSIUM 4.5 MMOL/L 11/11 Unknown COMPREHENSIVE METABOLIC 08352 PROT TOT 6.9 GM/DL 2010 Unknown COMPREHENSIVE METABOLIC 12045 Glucose 111 MG/DL 2010 Unknown COMPREHENSIVE METABOLIC 65795 BICARB 26 MMOL/L 2010 Unknown COMPREHENSIVE METABOLIC 47765 ANION GAP 7 MEQ/L 2010 Unknown HEMOGLOBIN A1C (GLYCOSYLATED) 88486 A1C [facility] 63623-0 5.6 % 07/24/2010 Unknown GFR CALC 6535833 GFR AA >60 ML/MIN 07/23/2010 Unknown GFR CALC 4253892 GFR NON-AA >60 ML/MIN 07/23/2010 Unknown COMPREHENSIVE METABOLIC 56229 AST 19 U/L 2010 Unknown COMPREHENSIVE METABOLIC 48808 ALT 33 IU/L 2010 Unknown COMPREHENSIVE METABOLIC 44931 BUN 14 MG/DL 2010 Unknown COMPREHENSIVE METABOLIC 96516 ALBUMIN 4.7 GM/DL 2010 Unknown COMPREHENSIVE METABOLIC 00228 CHLORIDE 107 MMOL/L 07/23 Unknown COMPREHENSIVE METABOLIC 56915 BILI TOT 0.4 MG/DL 2010 Unknown COMPREHENSIVE METABOLIC 17034 ALK PHOS 80 U/L 2010 Unknown COMPREHENSIVE METABOLIC 48159 SODIUM 141 MMOL/L 07/23 Unknown COMPREHENSIVE METABOLIC 80741 CREATININE 0.97 MG/DL 07/05 Unknown COMPREHENSIVE METABOLIC 64731 CALCIUM 9.5 MG/DL 2010 Unknown COMPREHENSIVE METABOLIC 96419 POTASSIUM 4.1 MMOL/L 07/23 Unknown COMPREHENSIVE METABOLIC 31222 PROT TOT 6.8 GM/DL 2010 Unknown COMPREHENSIVE METABOLIC 97317 Glucose 120 MG/DL 2010 Unknown COMPREHENSIVE METABOLIC 52581 BICARB 26 MMOL/L 2010 Unknown COMPREHENSIVE METABOLIC 19950 ANION GAP 8 MEQ/L 2010 Unknown LIP[facility] GROUP 68430 HDL TEST 41 MG/DL 07/23/2010 Unknown [facility] GROUP 71148 TRIG 175 MG/DL 07/23/2010 Unknown [facility] 63833 TEST LDL 72 MG/DL 07/23/2010 Unknown [facility] GROUP 48242 CHOL 148 MG/DL 07/23/2010 Unknown L[facility] GROUP 83014 RCHOL/HDL 3.61 RATIO 07/23/2010 Unknow n PSA FREE AND TOTAL 08722|90167 % FREE PSA FOOTNOTE % 011 Unknown PSA FREE AND TOTAL 09848|32529 XPSA TOTAL 0.83 NG/ML 011 Unknown PSA FREE AND TOTAL 87938|39918 XPSA FREE 0.13 NG/ML 04/26/19 11 Unknown VITAMIN D TOTAL (25 HYDROXY) 74498 VIT D TOTL 26 NG/ML 04/22/2010 Unknown TESTOSTERONE TOTAL 01570 TESTOS TO 387 NG/DL 04/19/2010 Unknown GFR CALC 1501482 GFR AA >60 ML/MIN 04/19/2010 Unknown GFR CALC 9247294 GFR NON-AA >60 ML/MIN 04/19/2010 Unknown COMPLETE BLOOD COUNT 74603 WBC 7.0 10e9/L 04/19/19 11 Unknown COMPLETE BLOOD COUNT 80027 RBC 5.07 10e12/L 2010 Unknown COMPLETE BLOOD COUNT 33523 HGB 15.6 g/dL 1 Unknown COMPLETE BLOOD COUNT 40060 HCT DET 46.2 % 1 Unknown COMPLETE BLOOD COUNT 33643 MCV 91.1 fL 1 Unknown COMPLETE BLOOD COUNT 40461 MCH 30.8 pg 1 Unknown COMPLETE BLOOD COUNT 82179 MCHC 33.8 g/dL 1 Unknown COMPLETE BLOOD COUNT 91917 PLT 205 10e9/L 04/19/19 11 Unknown COMPLETE BLOOD COUNT 70064 MPV 11.1 fL 1 Unknown COMPLETE BLOOD COUNT 52012 SAMIR % 62.4 % 1 Unknown COMPLETE BLOOD COUNT 39476 LY % 28.5 % 1 Unknown COMPLETE BLOOD COUNT 93788 MON % 6.9 % 1 Unknown COMPLETE BLOOD COUNT 74696 EOS % 2.1 % 1 Unknown COMPLETE BLOOD COUNT 85400 BASO % 0.1 % 1 Unknown COMPLETE BLOOD COUNT 70857 RDW 13.4 % 1 Unknown COMPLETE BLOOD COUNT 93280 ABS SAMIR 4.37 10e9/L 011 Unknown COMPLETE BLOOD COUNT 80410 ABS LYMPH 2.00 10e9/L 011 Unknown COMPLETE BLOOD COUNT 90369 ABS MONO 0.48 10e9/L 011 Unknown COMPLETE BLOOD COUNT 06161 ABS EOS 0.15 10e9/L 011 Unknown COMPLETE BLOOD COUNT 54418 ABS BASO 0.01 10e9/L 011 Unknown COMPLETE BLOOD COUNT 75744 RDW-SD 43.8 fL 1 Unknown LIPID GROUP 95961 HDL TEST 39 MG/DL 04/19/2010 Unknown LIPID GROUP 56723 TRIG 244 MG/DL 04/19/2010 Unknown LIPID GROUP 75577 TEST LDL 168 MG/DL 04/19/2010 Unknown LIPID GROUP 39312 CHOL 256 MG/DL 04/19/2010 Unknown LIPID GROUP 88355 RCHOL/HDL 6.56 RATIO 04/19/2010 Unknow n COMPREHENSIVE METABOLIC 55913 AST 28 U/L 2010 Unknown COMPREHENSIVE METABOLIC 88376 ALT 46 IU/L 2010 Unknown COMPREHENSIVE METABOLIC 64949 BUN 14 MG/DL 2010 Unknown COMPREHENSIVE METABOLIC 23521 ALBUMIN 4.9 GM/DL 2010 Unknown COMPREHENSIVE METABOLIC 65583 CHLORIDE 104 MMOL/L 04/19 Unknown COMPREHENSIVE METABOLIC 42271 BILI TOT 0.8 MG/DL 2010 Unknown COMPREHENSIVE METABOLIC 79704 ALK PHOS 71 U/L 2010 Unknown COMPREHENSIVE METABOLIC 30735 SODIUM 139 MMOL/L 04/19 Unknown COMPREHENSIVE METABOLIC 42316 CREATININE 1.06 MG/DL 04/06 Unknown COMPREHENSIVE METABOLIC 70246 CALCIUM 9.9 MG/DL 2010 Unknown COMPREHENSIVE METABOLIC 54107 POTASSIUM 4.3 MMOL/L 04/19 Unknown COMPREHENSIVE METABOLIC 61803 PROT TOT 7.2 GM/DL 2010 Unknown COMPREHENSIVE METABOLIC 43522 Glucose 99 MG/DL 2010 Unknown COMPREHENSIVE METABOLIC 55037 BICARB 28 MMOL/L 2010 Unknown COMPREHENSIVE METABOLIC 09047 ANION GAP 7 MEQ/L 2010 Unknown FREE T4 91002 FREE T4 1.26 NG/DL 04/19/2010 Unknown Procedures Procedure Codes Date ROUTINE VENIPUNCTURE CPT-4: 43569 08/24/2019 COMPREHEN METABOLIC PANEL CPT-4: 81137 08/24/2019 A1C HPLC CPT-4: 28553 08/24/2019 ROUTINE VENIPUNCTURE CPT-4: 88787 05/24/2019 COMPREHEN METABOLIC PANEL CPT-4: 11092 05/24/2019 A1C HPLC CPT-4: 02379 05/24/2019 FLU VACC PRSV FREE INC ANTIG 65 AND OLDER CPT-4: 29325 01/26/2019 FLU VACC PRSV FREE INC ANTIG 65 AND OLDER CPT-4: 36945 01/26/2019 ADMIN INFLUENZA VIRUS VAC CPT-4: G0008 01/26/2019 ROUTINE VENIPUNCTURE CPT-4: 12489 01/26/2019 COMPREHEN METABOLIC PANEL CPT-4: 47586 01/26/2019 COMPLETE CBC W/AUTO DIFF WBC CPT-4: 61712 01/26/2019 LIPID PANEL CPT-4: 41944 01/26/2019 A1C HPLC CPT-4: 23643 01/26/2019 ROUTINE VENIPUNCTURE CPT-4: 95958 09/30/2018 METABOLIC PANEL TOTAL CA CPT-4: 47496 09/30/2018 URINALYSIS NONAUTO W/O SCOPE CPT-4: 49585 08/19/2018 URINE CULTURE/ COLONY COUNT CPT-4: 16760 08/19/2018 MICROALBUMIN QUANTITATIVE CPT-4: 93585 08/19/2018 ROUTINE VENIPUNCTURE CPT-4: 89924 08/16/2018 ASSAY THYROID STIM HORMONE CPT-4: 27058 08/16/2018 COMPREHEN METABOLIC PANEL CPT-4: 50213 08/16/2018 COMPLETE CBC W/AUTO DIFF WBC CPT-4: 24500 08/16/2018 LIPID PANEL CPT-4: 66276 08/16/2018 A1C HPLC CPT-4: 01990 08/16/2018 LIPID PANEL CPT-4: 74163 05/05/2018 COMPREHEN METABOLIC PANEL CPT-4: 26100 05/05/2018 ROUTINE VENIPUNCTURE CPT-4: 95037 05/05/2018 A1C HPLC CPT-4: 81681 05/05/2018 COMPLETE CBC W/AUTO DIFF WBC CPT-4: 90995 05/05/2018 ASSAY THYROID STIM HORMONE CPT-4: 22100 05/05/2018 MICROALBUMIN QUANTITATIVE CPT-4: 79110 01/19/2018 PRESCRIP TRANSMIT VIA ERX SY CPT-4: G8553 01/19/2018 ROUTINE VENIPUNCTURE CPT-4: 67296 01/13/2018 COMPREHEN METABOLIC PANEL CPT-4: 99770 01/13/2018 A1C HPLC CPT-4: 39946 01/13/2018 LIPID PANEL CPT-4: 63784 01/13/2018 ASSAY OF PSA TOTAL CPT-4: 40166 01/13/2018 ASSAY THYROID STIM HORMONE CPT-4: 86063 01/13/2018 ROUTINE VENIPUNCTURE CPT-4: 73902 10/06/2017 COMPREHEN METABOLIC PANEL CPT-4: 63538 10/06/2017 COMPLETE CBC W/AUTO DIFF WBC CPT-4: 35506 10/06/2017 LIPID PANEL CPT-4: 52947 10/06/2017 A1C HPLC CPT-4: 87839 10/06/2017 VITAMIN B-12 CPT-4: 93620 10/06/2017 DESTRUCT PREMALG LESION (Cryosurgery) CPT-4: 55081 DESTRUCT PREMALG LES 2-14 CPT-4: 37590 04/23/2017 PRESCRIP TRANSMIT VIA ERX SY CPT-4: G8553 03/11/2017 ROUTINE VENIPUNCTURE CPT-4: 74927 03/05/2017 ASSAY OF FREE THYROXINE CPT-4: 81838 03/05/2017 ASSAY THYROID STIM HORMONE CPT-4: 07872 03/05/2017 COMPREHEN METABOLIC PANEL CPT-4: 62102 03/05/2017 COMPLETE CBC W/AUTO DIFF WBC CPT-4: 20149 03/05/2017 LIPID PANEL CPT-4: 48405 03/05/2017 A1C HPLC CPT-4: 96513 03/05/2017 ROUTINE VENIPUNCTURE CPT-4: 30837 06/16/2016 ASSAY OF FREE THYROXINE CPT-4: 49937 06/16/2016 ASSAY THYROID STIM HORMONE CPT-4: 62241 06/16/2016 COMPREHEN METABOLIC PANEL CPT-4: 25840 06/16/2016 COMPLETE CBC W/AUTO DIFF WBC CPT-4: 14806 06/16/2016 LIPID PANEL CPT-4: 68915 06/16/2016 A1C HPLC CPT-4: 51453 06/16/2016 ROUTINE VENIPUNCTURE CPT-4: 74870 03/06/2016 ASSAY OF FREE THYROXINE CPT-4: 31381 03/06/2016 ASSAY THYROID STIM HORMONE CPT-4: 34648 03/06/2016 COMPREHEN METABOLIC PANEL CPT-4: 76122 03/06/2016 COMPLETE CBC W/AUTO DIFF WBC CPT-4: 94178 03/06/2016 LIPID PANEL CPT-4: 11628 03/06/2016 A1C HPLC CPT-4: 84482 03/06/2016 PRESCRIP TRANSMIT VIA ERX SY CPT-4: G8553 09/10/2015 PNEUMOCOCCAL VACC 23 ROSANNE IM CPT-4: 96207 09/06/2015 ADMIN PNEUMOCOCCAL VACCINE CPT-4: G0009 09/06/2015 ROUTINE VENIPUNCTURE CPT-4: 03537 08/31/2015 COMPREHEN METABOLIC PANEL CPT-4: 83554 08/31/2015 COMPLETE CBC W/AUTO DIFF WBC CPT-4: 26184 08/31/2015 LIPID PANEL CPT-4: 02799 08/31/2015 ASSAY OF PSA TOTAL CPT-4: 36944 08/31/2015 A1C HPLC CPT-4: 76647 08/31/2015 ASSAY OF FREE THYROXINE CPT-4: 57527 08/31/2015 ASSAY THYROID STIM HORMONE CPT-4: 45403 08/31/2015 PRESCRIP TRANSMIT VIA ERX SY CPT-4: G8553 06/29/2015 FLU VACC PRSV FREE INC ANTIG 65 AND OLDER CPT-4: 34306 01/17/2015 PNEUMOCOCCAL VACC 13 ROSANNE IM CPT-4: 17954 01/17/2015 ADMIN INFLUENZA VIRUS VAC CPT-4: G0008 01/17/2015 ADMIN PNEUMOCOCCAL VACCINE CPT-4: G0009 01/17/2015 DESTRUCT PREMALG LESION (Cryosurgery) CPT-4: 58633 PRESCRIP TRANSMIT VIA ERX SY CPT-4: G8553 01/17/2015 ROUTINE VENIPUNCTURE CPT-4: 20529 01/12/2015 COMPREHEN METABOLIC PANEL CPT-4: 91574 01/12/2015 COMPLETE CBC W/AUTO DIFF WBC CPT-4: 16711 01/12/2015 LIPID PANEL CPT-4: 77278 01/12/2015 A1C HPLC CPT-4: 31684 01/12/2015 DESTRUCT PREMALG LESION (Cryosurgery) CPT-4: 74021 ROUTINE VENIPUNCTURE CPT-4: 65910 08/15/2014 COMPREHEN METABOLIC PANEL CPT-4: 68127 08/15/2014 COMPLETE CBC W/AUTO DIFF WBC CPT-4: 03681 08/15/2014 LIPID PANEL CPT-4: 10269 08/15/2014 A1C HPLC CPT-4: 09414 08/15/2014 ASSAY OF PSA TOTAL CPT-4: 89083 08/15/2014 ASSAY OF FREE THYROXINE CPT-4: 59613 08/15/2014 ASSAY THYROID STIM HORMONE CPT-4: 05326 08/15/2014 ROUTINE VENIPUNCTURE CPT-4: 79209 12/14/2013 ASSAY OF FREE THYROXINE CPT-4: 03260 12/14/2013 ASSAY THYROID STIM HORMONE CPT-4: 28281 12/14/2013 COMPREHEN METABOLIC PANEL CPT-4: 88792 12/14/2013 COMPLETE CBC W/AUTO DIFF WBC CPT-4: 89151 12/14/2013 LIPID PANEL CPT-4: 41940 12/14/2013 A1C HPLC CPT-4: 78503 12/14/2013 ROUTINE VENIPUNCTURE CPT-4: 82558 06/08/2013 ASSAY OF FREE THYROXINE CPT-4: 86695 06/08/2013 ASSAY THYROID STIM HORMONE CPT-4: 53161 06/08/2013 COMPREHEN METABOLIC PANEL CPT-4: 76225 06/08/2013 COMPLETE CBC W/AUTO DIFF WBC CPT-4: 69247 06/08/2013 LIPID PANEL CPT-4: 66259 06/08/2013 A1C HPLC CPT-4: 47610 06/08/2013 ROUTINE VENIPUNCTURE CPT-4: 60235 11/11/2012 COMPREHEN METABOLIC PANEL CPT-4: 48109 11/11/2012 COMPLETE CBC W/AUTO DIFF WBC CPT-4: 65787 11/11/2012 LIPID PANEL CPT-4: 48850 11/11/2012 A1C GLYCOSYLATED HEMOGLOBIN TEST CPT-4: 57891 013 ASSAY THYROID STIM HORMONE CPT-4: 50132 11/11/2012 ROUTINE VENIPUNCTURE CPT-4: 93343 05/04/2012 ASSAY OF FREE THYROXINE CPT-4: 62181 05/04/2012 ASSAY THYROID STIM HORMONE CPT-4: 43969 05/04/2012 COMPREHEN METABOLIC PANEL CPT-4: 55233 05/04/2012 COMPLETE CBC W/AUTO DIFF WBC CPT-4: 60616 05/04/2012 LIPID PANEL CPT-4: 17288 05/04/2012 DESTRUCT PREMALG LESION (Cryosurgery) CPT-4: 14762 DESTRUCT PREMALG LES 2-14 CPT-4: 65721 03/02/2012 ROUTINE VENIPUNCTURE CPT-4: 68499 10/29/2011 COMPREHEN METABOLIC PANEL CPT-4: 44322 10/29/2011 LIPID PANEL CPT-4: 40226 10/29/2011 A1C GLYCOSYLATED HEMOGLOBIN TEST CPT-4: 37078 012 ROUTINE VENIPUNCTURE CPT-4: 38458 07/29/2011 COMPREHEN METABOLIC PANEL CPT-4: 77907 07/29/2011 LIPID PANEL CPT-4: 46822 07/29/2011 A1C GLYCOSYLATED HEMOGLOBIN TEST CPT-4: 48566 012 ROUTINE VENIPUNCTURE CPT-4: 29386 03/14/2011 COMPREHEN METABOLIC PANEL CPT-4: 92264 03/14/2011 LIPID PANEL CPT-4: 62950 03/14/2011 A1C GLYCOSYLATED HEMOGLOBIN TEST CPT-4: 17096 011 ROUTINE VENIPUNCTURE CPT-4: 57419 11/11/2010 COMPREHEN METABOLIC PANEL CPT-4: 41497 11/11/2010 LIPID PANEL CPT-4: 57649 11/11/2010 URINE CULTURE/ COLONY COUNT CPT-4: 43017 11/11/2010 URINALYSIS NONAUTO W/O SCOPE CPT-4: 95991 10/29/2010 URINE CULTURE/ COLONY COUNT CPT-4: 15485 10/29/2010 LIPID PANEL CPT-4: 12816 07/23/2010 COMPREHEN METABOLIC PANEL CPT-4: 88716 07/23/2010 ROUTINE VENIPUNCTURE CPT-4: 18665 07/23/2010 ROUTINE VENIPUNCTURE CPT-4: 99413 04/26/2010 PSA FREE AND TOTAL CPT-4: 37824|44090 04/26/2010 OCCULT BLOOD FECES CPT-4: 17018 04/24/2010 ROUTINE VENIPUNCTURE CPT-4: 18517 04/19/2010 COMPLETE CBC W/AUTO DIFF WBC CPT-4: 32654 04/19/2010 COMPREHEN METABOLIC PANEL CPT-4: 83918 04/19/2010 LIPID PANEL CPT-4: 66657 04/19/2010 TESTOSTERONE TOTAL - MALE CPT-4: 46514 04/19/2010 ASSAY THYROID STIM HORMONE CPT-4: 39852 04/19/2010 ASSAY OF FREE THYROXINE CPT-4: 18361 04/19/2010 VITAMIN D TOTAL (25 HYDROXY) CPT-4: 83307 04/19/2010 Vital Signs Date Vital 08/30/2019 Blood Pressure 1: 144/76 Code: 8480-6 Heart Rate 1: 84 bpm Respiratory Rate: 20 bpm SpO2: 98% Temperature: 36.9 (C) / 98.4 (F) We ight: 240 lbs 06/02/2019 Blood Pressure 1: 132/80 Code: 8480-6 BMI: 29.5 Code: 62896-6 Heart Rate 1: 64 bpm Height: 6'3" [...] 1: 112/70 Code: 8480-6 BMI: 28.9 Code: 97537-6 Heart Rate 1: 60 bpm Height: 6'3" Respiratory Rate: 20 bpm SpO2: 95% Tempera ture: 36.6 (C) / 97.9 (F) Weight: 231 lbs 01/19/2018 Blood Pressure 1: 150/82 Code: 8480-6 Heart Rate 1: 63 bpm Respiratory Rate: 18 bpm SpO2: 98% Temperature: 36.0 (C) / 96.8 (F) We ight: 225 lbs 10/15/2017 Blood Pressure 1: 126/82 Code: 8480-6 BMI: 27.9 Code: 62960-2 Heart Rate 1: 64 bpm Height: 6'3" Respiratory Rate: 20 bpm SpO2: 96% Tempera ture: 36.7 (C) / 98.1 (F) Weight: 223 lbs 04/23/2017 Blood Pressure 1: 136/74 Code: 8480-6 BMI: 28.7 Code: 46208-5 Heart Rate 1: 76 bpm Height: 6'3" Respiratory Rate: 20 bpm Temperature: 37 .0 (C) / 98.6 (F) Weight: 230 lbs 03/11/2017 Blood Pressure 1: 136/66 Code: 8480-6 BMI: 28.6 Code: 09557-7 Heart Rate 1: 60 bpm Height: 6'3" Respiratory Rate: 20 bpm Temperature: 36 .7 (C) / 98.1 (F) Weight: 229 lbs 07/09/2016 Blood Pressure 1: 132/80 Code: 8480-6 BMI: 27.7 Code: 08682-6 Heart Rate 1: 64 bpm Height: 6'3" Respiratory Rate: 20 bpm SpO2: 96% Tempera ture: 36.9 (C) / 98.4 (F) Weight: 222 lbs 03/10/2016 Blood Pressure 1: 134/78 Code: 8480-6 BMI: 28.5 Code: 49343-1 Heart Rate 1: 60 bpm Height: 6'3" Respiratory Rate: 20 bpm SpO2: 96% Tempera ture: 36.7 (C) / 98.1 (F) Weight: 228 lbs 09/12/2015 Blood Pressure 1: 136/78 Code: 8480-6 Heart Rate 1: 84 bpm Height: Respiratory Rate: 24 bpm SpO2: 97% Temperature: 36.4 (C) / 97.6 (F) We ight: 09/10/2015 Blood Pressure 1: 124/ Code: 8480-6 BMI: 28.5 Code: 45296-1 Heart Rate 1: 76 bpm Height: 6'3" Respiratory Rate: 24 bpm SpO2: 97% Tempera ture: 36.4 (C) / 97.6 (F) Weight: 228 lbs 09/06/2015 Blood Pressure 1: 124/82 Code: 8480-6 BMI: 29.0 Code: 98326-6 Heart Rate 1: 66 bpm Height: 6'3" Respiratory Rate: 20 bpm SpO2: 97% Tempera ture: 36.4 (C) / 97.6 (F) Weight: 232 lbs 06/29/2015 Blood Pressure 1: 124/82 Code: 8480-6 Heart Rate 1: 88 bpm Height: Respiratory Rate: 20 bpm Temperature: 36.7 (C) / 98.1 (F) Weight: 01/17/2015 Blood Pressure 1: 124 Code: 8480-6 BMI: 27.7 Code: 52185-1 Heart Rate 1: 76 bpm Height: 6'3" Respiratory Rate: 20 bpm Temperature: 36 .6 (C) / 97.8 (F) Weight: 222 lbs 09/19/2014 Blood Pressure 1: 128/80 Code: 8480-6 BMI: 27.4 Code: 63723-7 Heart Rate 1: 64 bpm Height: 6'3" Respiratory Rate: 20 bpm Temperature: 36 .4 (C) / 97.6 (F) Weight: 219 lbs 10/17/2013 Blood Pressure 1: 11670 Code: 8480-6 Heart Rate 1: 88 bpm Respiratory Rate: 20 bpm Temperature: 36.9 (C) / 98.4 (F) Weight: 220 lbs 09/23/2013 Blood Pressure 1: 12480 Code: 8480-6 BMI: 28.7 Code: 44325-6 Heart Rate 1: 76 bpm Height: 6'3" Respiratory Rate: 20 bpm Temperature: 36 .8 (C) / 98.2 (F) Weight: 230 lbs 07/22/2013 Blood Pressure 1: 128/70 Code: 8480-6 He art Rate 1: 78 bpm 06/20/2013 Blood Pressure 1: 144/86 Code: 8480-6 BMI: 28.7 Code: 15248-3 Heart Rate 1: 92 bpm Height: 6'3" Respiratory Rate: 20 bpm Temperature: 36 .4 (C) / 97.6 (F) Weight: 230 lbs 11/25/2012 Blood Pressure 1: 128/80 Code: 8480-6 BMI: 27.5 Code: 07660-8 Heart Rate 1: 92 bpm Height: 6'3" Respiratory Rate: 20 bpm Temperature: 36 .8 (C) / 98.3 (F) Weight: 220 lbs 08/27/2012 Blood Pressure 1: 142/80 Code: 8480-6 BMI: 27.7 Code: 17389-9 Heart Rate 1: 76 bpm Height: 6'3" Respiratory Rate: 20 bpm Temperature: 36 .8 (C) / 98.3 (F) Weight: 222 lbs 05/11/2012 Blood Pressure 1: 136/80 Code: 8480-6 BMI: 27.7 Code: 72776-7 Heart Rate 1: 76 bpm Height: 6'3" Respiratory Rate: 20 bpm Temperature: 36 .8 (C) / 98.3 (F) Weight: 222 lbs 03/02/2012 Blood Pressure 1: 136/70 Code: 8480-6 BMI: 28.0 Code: 94688-5 Heart Rate 1: 80 bpm Height: 6'3" Respiratory Rate: 20 bpm Temperature: 36 .6 (C) / 97.8 (F) Weight: 224 lbs 12/11/2011 Blood Pressure 1: 142/80 Code: 8480-6 BMI: 27.1 Code: 41898-3 Heart Rate 1: 84 bpm Height: 6'3" Respiratory Rate: 20 bpm Temperature: 36 .9 (C) / 98.4 (F) Weight: 217 lbs 08/14/2011 Blood Pressure 1: 130/82 Code: 8480-6 He art Rate 1: 64 bpm 07/29/2011 Blood Pressure 1: 132/64 Code: 8480-6 BMI: 26.7 Code: 85984-4 Heart Rate 1: 72 bpm Height: 6'3" [...] 1: 142/88 Code: 8480-6 BMI: 26.4 Code: 66762-6 Heart Rate 1: 80 bpm Height: 6'3" [...] follow up 12/11/2011 discuss labs from [place] 2011 lab draw 10/29/2011 blood pressure check [...] labs Encounters Encounter Performer Location Codes Date ([id number]) OFFICE/OUTPATIENT VISIT EST Diagnosis: Type 2 diabetes mellitus with hyperglycemia[ICD10: E11.65] Diagnosis: Essential hypertension[ICD10: I10] Diagnosis: Stress reaction[ICD10: F43.0] Najma Grey [employer] CPT-4: 34816 08/30/2019 ([id number]) NURSE/OUTPATIENT VISIT EST Diagnosis: Essential (primary) hypertension[ICD10: I10] Diagnosis: Type 2 diabetes mellitus with hyperglycemia[ICD10: E11.65] Najma Grey PlairORA [email or web address] CPT-4: 40075 08/24/2019 ([id number]) OFFICE/OUTPATIENT VISIT EST Diagnosis: Essential (primary) hypertension[ICD10: I10] Diagnosis: Gastro-esophageal reflux disease without esophagitis[ICD10: K21.9] Diagnosis: Type 2 diabetes mellitus with hyperglycemia[ICD10: E11.65] Najma Grey [employer] CPT-4: 01435 06/02/2019 ([id number]) NURSE/OUTPATIENT VISIT EST Diagnosis: Type 2 diabetes mellitus without complications[ICD10: E11.9] Diagnosis: Essential (primary) hypertension[ICD10: I10] Diagnosis: Mixed hyperlipidemia[ICD10: E78.2] Najma Grey PlairORA [facility] CPT-4: 85270 05/24/2019 ([id number]) OFFICE/OUTPATIENT VISIT EST Diagnosis: Essential (primary) hypertension[ICD10: I10] Diagnosis: Type 2 diabetes mellitus without complications[ICD10: E11.9] Diagnosis: Mixed hyperlipidemia[ICD10: E78.2] Najma KATHLE[employer] [facility] CPT-4: 55978 01/31/2019 ([id number]) NURSE/OUTPATIENT VISIT EST Diagnosis: Mixed hyperlipidemia[ICD10: E78.2] Diagnosis: Type 2 diabetes mellitus without complications[ICD10: E11.9] Diagnosis: Essential (primary) hypertension[ICD10: I10] Diagnosis: Chronic kidney disease, unspecified[ICD10: N18.9] Najma MANUELLINE Matilda OG [facility] CPT-4: 12843 01/26/2019 ([id number]) NURSE/OUTPATIENT VISIT EST Diagnosis: Chronic kidney disease, unspecified[ICD10: N18.9] Diagnosis: Essential (primary) hypertension[ICD10: I10] Najma LONG [facility] CPT-4: 69976 09/30/2018 ([id number]) OFFICE/OUTPATIENT VISIT EST Diagnosis: Essential (primary) hypertension[ICD10: I10] Diagnosis: Type 2 diabetes mellitus without complications[ICD10: E11.9] Diagnosis: Mixed hyperlipidemia[ICD10: E78.2] Diagnosis: Unspecified kidney failure[ICD10: N19] Najma Hevervicentedasha SHABNAM CHAPMAN Matilda LONG [facility] CPT-4: 23780 08/19/2018 ([id number]) NURSE/OUTPATIENT VISIT EST Diagnosis: Essential (primary) hypertension[ICD10: I10] Diagnosis: Type 1 diabetes mellitus with unspecified complications[ICD10: E10.8] Diagnosis: Mixed hyperlipidemia[ICD10: E78.2] Najma Orenddasha ANUM GODINEZ Matilda OG [facility] CPT-4: 42283 08/16/2018 ([id number]) OFFICE/OUTPATIENT VISIT EST Diagnosis: Essential (primary) hypertension[ICD10: I10] Diagnosis: Type 2 diabetes mellitus without complications[ICD10: E11.9] Diagnosis: Mixed hyperlipidemia[ICD10: E78.2] Najma OG DO [employer] CPT-4: 52607 05/10/2018 ([id number]) NURSE/OUTPATIENT VISIT EST Diagnosis: Essential (primary) hypertension[ICD10: I10] Diagnosis: Mixed hyperlipidemia[ICD10: E78.2] Diagnosis: Type 1 diabetes mellitus with unspecified complications[ICD10: E10.8] Najma OG DO [facility] CPT-4: 96921 05/05/2018 ([id number]) OFFICE/OUTPATIENT VISIT EST Diagnosis: Type 2 diabetes mellitus without complications[ICD10: E11.9] Diagnosis: Mixed hyperlipidemia[ICD10: E78.2] Diagnosis: Nicotine dependence, unspecified, uncomplicated[ICD10: F17.200] Diagnosis: Essential (primary) hypertension[ICD10: I10] Najma OG DO [employer] CPT-4: 74278 01/19/2018 ([id number]) NURSE/OUTPATIENT VISIT EST Diagnosis: Type 1 diabetes mellitus with unspecified complications[ICD10: E10.8] Diagnosis: Essential (primary) hypertension[ICD10: I10] Diagnosis: Male erectile disorder[ICD10: F52.21] Diagnosis: Encounter for screening for malignant neoplasm of prostate[ICD10: Z12.5] Najma OG DO [employer] CPT-4: 50043 01/13/2018 ([id number]) OFFICE/OUTPATIENT VISIT EST Diagnosis: Type 2 diabetes mellitus without complications[ICD10: E11.9] Diagnosis: Essential (primary) hypertension[ICD10: I10] Diagnosis: Mixed hyperlipidemia[ICD10: E78.2] Najma OG [email or web address] CPT-4: 88679 10/15/2017 ([id number]) NURSE/OUTPATIENT VISIT EST Diagnosis: Type 2 diabetes mellitus without complications[ICD10: E11.9] Diagnosis: Mixed hyperlipidemia[ICD10: E78.2] Diagnosis: Essential (primary) hypertension[ICD10: I10] Diagnosis: Glossitis[ICD10: K14.0] Najma THAKKAR [email or web address] CPT-4: 61671 10/06/2017 ([id number]) OFFICE/OUTPATIENT VISIT EST Diagnosis: Type 2 diabetes mellitus without complications[ICD10: E11.9] Diagnosis: Mixed hyperlipidemia[ICD10: E78.2] Diagnosis: Essential (primary) hypertension[ICD10: I10] Najma OG [email or web address] CPT-4: 72328 03/11/2017 ([id number]) OFFICE/OUTPATIENT VISIT EST Diagnosis: Type 1 diabetes mellitus with unspecified complications[ICD10: E10.8] Diagnosis: Mixed hyperlipidemia[ICD10: E78.2] Diagnosis: Essential (primary) hypertension[ICD10: I10] Diagnosis: Other fatigue[ICD10: R53.83] Najma OG [email or web address] CPT-4: 77992 03/05/2017 ([id number]) OFFICE/OUTPATIENT VISIT EST Diagnosis: Type 2 diabetes mellitus without complications[ICD10: E11.9] Diagnosis: Mixed hyperlipidemia[ICD10: E78.2] Diagnosis: Essential (primary) hypertension[ICD10: I10] Diagnosis: Nicotine dependence, unspecified, uncomplicated[ICD10: F17.200] Najma OG [email or web address] CPT-4: 76974 07/09/2016 ([id number]) OFFICE/OUTPATIENT VISIT EST Diagnosis: Type 1 diabetes mellitus with unspecified complications[ICD10: E10.8] Diagnosis: Mixed hyperlipidemia[ICD10: E78.2] Diagnosis: Essential (primary) hypertension[ICD10: I10] Najma OG [email or web address] CPT-4: 54044 06/16/2016 ([id number]) OFFICE/OUTPATIENT VISIT EST Diagnosis: Type 2 diabetes mellitus without complications[ICD10: E11.9] Diagnosis: Mixed hyperlipidemia[ICD10: E78.2] Diagnosis: Essential (primary) hypertension[ICD10: I10] Najma OG [email or web address] CPT-4: 75886 03/10/2016 ([id number]) OFFICE/OUTPATIENT VISIT EST Diagnosis: Type 1 diabetes mellitus with unspecified complications[ICD10: E10.8] Diagnosis: Mixed hyperlipidemia[ICD10: E78.2] Diagnosis: Essential (primary) hypertension[ICD10: I10] Najma OG [email or web address] CPT-4: 71081 03/06/2016 ([id number]) OFFICE/OUTPATIENT VISIT EST Diagnosis: Bitten or stung by nonvenomous insect and other nonvenomous arthropods, subsequent encounter[ICD10: W57.XXXD] Diagnosis: Insect bite (nonvenomous), right thigh, subsequent encounter[ICD10: S70.361D] Barbara Brower NAJMA AmeenaMatilde [facility] [facility] CPT-4: 59917 11/2015 ([id number]) OFFICE/OUTPATIENT VISIT EST Diagnosis: Bitten or stung by nonvenomous insect and other nonvenomous arthropods, initial encounter[ICD10: W57.XXXA] Diagnosis: Insect bite (nonvenomous), right thigh, initial encounter[ICD10: S70.361A] Barbara Brower NAJMA AmeenaMatilde [employer] [facility] CPT-4: 28753 09/2015 ([id number]) OFFICE/OUTPATIENT VISIT EST Diagnosis: Mixed hyperlipidemia[ICD10: E78.2] Diagnosis: Essential (primary) hypertension[ICD10: I10] Diagnosis: Type 2 diabetes mellitus without complications[ICD10: E11.9] Diagnosis: Encounter for immunization[ICD10: Z23] Diagnosis: Encounter for screening for malignant neoplasm of colon[ICD10: Z12.11] Diagnosis: Abnormal weight gain[ICD10: R63.5] Barbara Brower ANUM GODINEZ [employer] [facility] CPT-4: 19345 09/06/2015 ([id number]) OFFICE/OUTPATIENT VISIT EST Diagnosis: Type 2 diabetes mellitus without complications[ICD10: E11.9] Diagnosis: Mixed hyperlipidemia[ICD10: E78.2] Diagnosis: Essential (primary) hypertension[ICD10: I10] Diagnosis: Encounter for screening for malignant neoplasm of prostate[ICD10: Z12.5] Diagnosis: Other fatigue[ICD10: R53.83] Najma MCARTHUR [employer] [facility] CPT-4: 27997 08/31/2015 OFFICE/OUTPATIENT VISIT EST Diagnosis: Diarrhea, unspecified[ICD10: R19.7] Henrietta MCCOY [employer] [facility] CPT-4: 47631 06/29/2015 OFFICE/OUTPATIENT VISIT EST Diagnosis: PNEUMOCOCCAL VACCINE[ICD10: Z23] Diagnosis: FLU VACCINE[ICD10: Z23] Diagnosis: Essential (primary) hypertension[ICD10: I10] Diagnosis: Mixed hyperlipidemia[ICD10: E78.2] Diagnosis: Type 1 diabetes mellitus with unspecified complications[ICD10: E10.8] Diagnosis: Actinic keratosis[ICD10: L57.0] Najma Kathleenora MCARTHUR Matilda OG [facility] CPT-4: 78903 01/17/2015 ([id number]) OFFICE/OUTPATIENT VISIT EST Diagnosis: Type 2 diabetes mellitus without complications[ICD10: E11.9] Diagnosis: Impaired fasting glucose[ICD10: R73.01] Diagnosis: Mixed hyperlipidemia[ICD10: E78.2] Diagnosis: Essential (primary) hypertension[ICD10: I10] Najma MCARTHUR Matilda OG [email or web address] CPT-4: 28076 01/12/2015 ([id number]) OFFICE/OUTPATIENT VISIT EST Diagnosis: - I - HYPERLIPIDEMIA NEC/NOS[ICD9: 272.4] Diagnosis: HYPERTENSION[ICD9: 401.9] Diagnosis: DM W/O COMPLICATION TYPE II[ICD9: 250.00] Diagnosis: ACTINIC KERATOSIS[ICD9: 702.0] Najma MCARTHUR Ameena Clayton [email or web address] CPT-4: 55161 09/19/2014 ([id number]) OFFICE/OUTPATIENT VISIT EST Diagnosis: HYPERLIPIDEMIA NEC/NOS[ICD9: 272.4] Diagnosis: HYPERTENSION[ICD9: 401.9] Diagnosis: IMPAIRED FASTING GLUCOSE[ICD9: 790.21] Diagnosis: MALAISE AND FATIGUE[ICD9: 780.79] Najma Jenkins Matilda [employer] CPT-4: 08836 08/15/2014 ([id number]) OFFICE/OUTPATIENT VISIT EST Diagnosis: HYPERLIPIDEMIA NEC/NOS[ICD9: 272.4] Diagnosis: HYPERTENSION[ICD9: 401.9] Diagnosis: IMPAIRED FASTING GLUCOSE[ICD9: 790.21] Najma CHAPMAN Matilda [facility] CPT-4: 30915 12/14/2013 ([id number]) OFFICE/OUTPATIENT VISIT EST Diagnosis: Post herpetic neuralgia[ICD9: 053.19] Najma OG [facility] CPT-4: 80011 10/17/2013 OFFICE/OUTPATIENT VISIT EST Diagnosis: Shingles[ICD9: 053.9] Diagnosis: Post herpetic neuralgia[ICD9: 053.19] Jeanie OG [facility] CPT-4: 37188 09/23/2013 ([id number]) OFFICE/OUTPATIENT VISIT EST Diagnosis: HYPERTENSION[ICD9: 401.9] Diagnosis: HYPERLIPIDEMIA NEC/NOS[ICD9: 272.4] Diagnosis: IMPAIRED FASTING GLUCOSE[ICD9: 790.21] Najma OG [facility] CPT-4: 04806 06/20/2013 ([id number]) OFFICE/OUTPATIENT VISIT EST Diagnosis: HYPERLIPIDEMIA NEC/NOS[ICD9: 272.4] Diagnosis: MALAISE AND FATIGUE[ICD9: 780.79] Diagnosis: ROUTINE MEDICAL EXAM[ICD9: V70.0] Diagnosis: HYPERTENSION[ICD9: 401.9] Diagnosis: IMPAIRED FASTING GLUCOSE[ICD9: 790.21] Najma OG [facility] CPT-4: 82955 06/08/2013 ([id number]) OFFICE/OUTPATIENT VISIT EST Diagnosis: HYPERLIPIDEMIA NEC/NOS[ICD9: 272.4] Diagnosis: HYPERTENSION[ICD9: 401.9] Diagnosis: IMPAIRED FASTING GLUCOSE[ICD9: 790.21] Diagnosis: DIARRHEA[ICD9: 787.91] Najma MCARTHUR AmeenaMatilde BRITTNI Stallings [facility] CPT-4: 12127 11/25/2012 ([id number]) OFFICE/OUTPATIENT VISIT EST Diagnosis: HYPERLIPIDEMIA NEC/NOS[ICD9: 272.4] Diagnosis: HYPERTENSION[ICD9: 401.9] Diagnosis: IMPAIRED FASTING GLUCOSE[ICD9: 790.21] Diagnosis: MALAISE AND FATIGUE[ICD9: 780.79] Najma Jenkins [facility]ilde [facility] CPT-4: 37640 11/11/2012 OFFICE/OUTPATIENT VISIT EST Diagnosis: Fungal dermatitis[ICD9: 111.9] Diagnosis: Dry skin dermatitis[ICD9: 692.89] Henrietta Grey HEVERVICENTEER DO [facility] CPT-4: 36795 08/27/2012 ([id number]) OFFICE/OUTPATIENT VISIT EST Diagnosis: HYPERTENSION[ICD9: 401.9] Diagnosis: HYPERLIPIDEMIA NEC/NOS[ICD9: 272.4] Najma OG DO [facility] CPT-4: 15105 05/11/2012 ([id number]) OFFICE/OUTPATIENT VISIT EST Diagnosis: HYPERLIPIDEMIA NEC/NOS[ICD9: 272.4] Diagnosis: HYPERTENSION[ICD9: 401.9] Diagnosis: ROUTINE MEDICAL EXAM[ICD9: V70.0] Najma OG DO [facility] CPT-4: 59085 05/04/2012 ([id number]) OFFICE/OUTPATIENT VISIT EST Diagnosis: HYPERTENSION[ICD9: 401.9] Diagnosis: HYPERLIPIDEMIA NEC/NOS[ICD9: 272.4] Diagnosis: IMPAIRED FASTING GLUCOSE[ICD9: 790.21] Najma OG DO [facility] CPT-4: 03341 12/11/2011 ([id number]) OFFICE/OUTPATIENT VISIT EST Diagnosis: HYPERLIPIDEMIA NEC/NOS[ICD9: 272.4] Diagnosis: HYPERTENSION[ICD9: 401.9] Diagnosis: IMPAIRED FASTING GLUCOSE[ICD9: 790.21] Najma OG DO [facility] CPT-4: 03056 10/29/2011 ([id number]) OFFICE/OUTPATIENT VISIT EST Diagnosis: HYPERTENSION[ICD9: 401.9] Najma PAYAN DO [facility] CPT-4: 62916 08/14/2011 ([id number]) OFFICE/OUTPATIENT VISIT EST Diagnosis: HYPERTENSION[ICD9: 401.9] Diagnosis: IMPAIRED FASTING GLUCOSE[ICD9: 790.21] Najma OG DO [facility] CPT-4: 14903 07/29/2011 ([id number]) OFFICE/OUTPATIENT VISIT EST Diagnosis: HYPERTENSION[ICD9: 401.9] Najma PAYAN DO [facility] CPT-4: 34995 07/23/2011 ([id number]) OFFICE/OUTPATIENT VISIT EST Diagnosis: HYPERTENSION[ICD9: 401.9] Najma CLINTON CPT-4: 71995 06/24/2011 OFFICE/OUTPATIENT VISIT EST Diagnosis: HYPERTENSION[ICD9: 401.9] Najma CLINTON CPT-4: 08648 05/20/2011 OFFICE/OUTPATIENT VISIT EST Diagnosis: HYPERTENSION[ICD9: 401.9] Najma ZARATER [facility] CPT-4: 02722 04/15/2011 OFFICE/OUTPATIENT VISIT EST Diagnosis: HYPERLIPIDEMIA NEC/NOS[ICD9: 272.4] Diagnosis: IMPAIRED FASTING GLUCOSE[ICD9: 790.21] Najma OG DO [facility] CPT-4: 00428 03/18/2011 ([id number]) OFFICE/OUTPATIENT VISIT EST Najma OG DO [employer] CPT-4: 85283 07/30/2010 ([id number]) PREV VISIT, EST, AGE 40-64 Najma OG DO [employer] CPT-4: 48691 04/24/2010 Plan of Care Planned Activity Notes Codes Status Date Visit Diagnosis Plan: Essential hypertension Discussio n: Stable ICD-9 : 401.9 ICD-10 : I10 08/30/2019 Visit Diagnosis Plan: Type 2 diabetes mellitus with hy perglycemia Discussion: Lab discussed Accuchecks daily Continue current meds Check CMP and HbA1C in 3mos then fwup ICD-9 : 250.02 ICD-10 : E11.65 08/30/2019 Visit Diagnosis Plan: Stress reaction Discussion: Rest art lexapro ICD-9 : 308.9 ICD-10 : F43.0 08/30/2019 Patient Education: escitalopram oxalate- [employer] Co upon [id number] [email or web address]/[email or web address]/[email or web address] Completed 08/30/2019 Appointment: [facility] [phone] [phone] [facility] 08/24/2019 Visit Diagnosis Plan: Type [...] I10 06/02/2019 Appointment: Najma Og WPtel: [address] [place] [address] US FOLLOW UP 06/02/2019 Appointment: Najma Og WPtel: [address] [place], [place] [phone] US LAB 05/24/2019 Visit Diagnosis Plan: Essential [...] : E78.2 01/31/2019 Appointment: Najma Og WPtel: [address] [place], [place] [phone] US FOLLOW UP 01/31/2019 Appointment: Najma Og WPtel: [address] [place], [place] [phone] US LAB 01/26/2019 Appointment: Najma Og WPtel: [address] [place], [place] [phone] US LAB 09/30/2018 Visit Diagnosis Plan: Essential [...] : N19 08/19/2018 Appointment: Najma Og WPtel: [address] [place], [place] [phone] US FOLLOW UP 08/19/2018 Appointment: Najma Og WPtel: [address] [place], [place] [phone] US LAB 08/16/2018 Visit Diagnosis Plan: Type [...] : I10 05/10/2018 Appointment: Najma Og WPtel: [address] [place], [place] [phone] FOLLOW UP 05/10/2018 Patient Education: Low Back Pain Exercises: Illustration Completed 05/10/2018 Patient Education: Low Back Pain Exercises Completed 05/10/2018 Appointment: Najma Og WPtel: [address] [place], [place] [phone] US LAB 05/05/2018 Visit Diagnosis Plan: Type [...] : E78.2 01/19/2018 Appointment: Najma Og WPtel: [address] [place], [place] [id number] FOLLOW UP 01/19/2018 Patient Education: Patient Medication Summary Completed 01/19/2018 Appointment: Najma Og WPtel: [address] [place], [place] [id number] [place] LAB 01/13/2018 Patient Education: Patient Medication [...] 272.2 ICD-10 : E78.2 10/15/2017 Appointment: Najma Og WPtel: [address] [place], [place] [phone] US FOLLOW UP 10/15/2017 Patient Education: Patient Medication Summary Completed 10/15/2017 Appointment: Najma Og WPtel: [address] [place], [place] [id number] [place] LAB 10/06/2017 Patient Education: Patient Medication Summary Completed 10/06/2017 Visit Diagnosis Plan: Actinic keratosis Discussion: Cr yotherapy as above ICD-9 : 702.0 ICD-10 : L57.0 04/23/2017 Appointment: Najma Og WPtel: [address] [place], [place] [phone] OFFICE SURGERY 04/23/2017 Patient Education: Patient Medication [...] : E11.9 03/11/2017 Appointment: Najma Og WPtel: [address] [place], [place] [phone] US FOLLOW UP 03/11/2017 Patient Education: Patient Medication Summary Completed 03/11/2017 Appointment: Najma Og WPtel: [address] [place], [place] [phone] [place] LAB 03/05/2017 Patient Education: Patient Medication [...] : F17.200 07/09/2016 Appointment: Najma Og WPtel: [address] [place], [place] [id number] US 07/08 lm ~sl 07/09 confirmed~sl FOLLOW UP 08/2016 Patient Education: Patient Medication Summary Completed 07/09/2016 Appointment: Najma Og WPtel: [address] [place], [place] [id number] [place] LAB 06/16/2016 Patient Education: Patient Medication Summary Completed 06/16/2016 Visit Plan: Lab discussed Accjeremy shine Lifestyle change for 3mos then check CMP, HbA1C in 3mos Has had flu and pneumonia shot 03/10/2016 Appointment: Najma Og WPtel: [address] [place], [place] [phone] 03/06 confirmed `sl FOLLOW UP 03/10/2016 Patient Education: Patient Medication Summary Completed 03/10/2016 Appointment: Najma Og WPtel: [address] [place], [place] [phone] LAB 03/06/2016 Patient Education: Patient Medication Summary Completed 03/06/2016 Referral: Donavon Keller WPtel: [id number] [place] Referral Completed 10/22/2015 Visit Plan: Tick bite area looks much be tter Continue current rxs and close monitoring Follow up if any new symptoms or worsening appearance 09/12/2015 Appointment: Barbara Brower [address] [place], [place] [id number] 09/10 confirmed~sl FOLLOW UP 09/12/2015 Patient Education: Patient Medication Summary Completed 09/12/2015 Visit Plan: Cover as above 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 topical steroids to calm down the inflammation(suspect most of redness is due to histamine response vs infection) Monitor closely Follow up in 2 days to recheck 09/10/2015 Appointment: Barbara Brower [address] [place] [address] ACUTE ILLNESS 09/10/2015 Patient Education: Patient Medication [...] consider shingles vaccine 09/06/2015 Appointment: Barbara Brower [address] [place], [place] [phone] FOLLOW UP 09/06/2015 Patient Education: Patient Medication Summary Completed 09/06/2015 Care Plan: Referral Order SNOMED-CT : [id number] Pending 09/06/2015 Appointment: Najma Og WPtel: [address] [place], [place] [phone] [place] LAB 08/31/2015 Patient Education: Patient Medication Summary [...] to UC/ER. 06/29/2015 Appointment: Henrietta Lubin WPtel: [address] [place], [place] [id number] ACUTE ILLNESS 06/29/2015 Patient Education: Patient Medication Summary Completed 06/29/2015 Visit Plan: Lab discussed Will keep meds the same Discussed diet/exercise at length Cryotherapy as above to AKs of arms Flu and Prevnar 13 given Trial of revatio per patient request for ED--warned of no nitrates Recheck 4mos 01/17/2015 Appointment: Najma Og WPtel: [address] [place] [address] 01/16 confirmed~sl FOLLOW UP 01/17/2015 Patient Education: Patient Medication Summary Completed 01/17/2015 Appointment: Najma Og WPtel: [address] [place], [place] [phone] [place] LAB 01/12/2015 Patient Education: Patient Medication Summary Completed 01/12/2015 Visit Plan: Lab discussed Start accuchec ks daily Cryotherapy as above 09/19/2014 Appointment: Najma Og WPtel: [address] [place], [place] [phone] 09/18 confirmed -mf FOLLOW UP 09/19/2014 Patient Education: Patient Medication Summary Completed 09/19/2014 Appointment: Najma Og WPtel: [address] [place], [place] [phone] [place] LAB 08/15/2014 Patient Education: Patient Medication Summary Completed 08/15/2014 Appointment: Najma Og WPtel: [address] [place] [address] ACUTE ILLNESS 12/14/2013 Patient Education: Patient Medication Summary Completed 12/14/2013 Visit Plan: Patient using tylenol prn pa in Discussed possible shingles shot for booster in 9-12mos 10/17/2013 Appointment: Najma Og WPtel: [address] [place] [address] FOLLOW UP 10/17/2013 Patient Education: Patient Medication Summary Completed 10/17/2013 Appointment: Jeanie Briceño WPtel: [address] [place] [address] ACUTE ILLNESS 09/23/2013 Patient Education: Patient Medication Summary Completed 09/23/2013 Appointment: Najma Og WPtel: [address] [place] [address] BP CHECK 07/22/2013 Patient Education: Patient Medication Summary Completed 07/22/2013 Visit Plan: Lab discussed Discussed swit arun amlodopine to beta slim to see if helps with tremor BP check in 1mo 06/20/2013 Appointment: Najma Og WPtel: [address] [place] [address] 06/17 no answer FOLLOW UP 06/20/2013 Patient Education: Patient Medication Summary Completed 06/20/2013 Appointment: Najma Og WPtel: [address] [place], [place] [phone] [place] LAB 06/08/2013 Patient Education: Patient Medication Summary Completed 06/08/2013 Visit Plan: BRAT diet and yogurt and gat orade Lab discussed Continue current meds Spot checks on BS 11/25/2012 Appointment: Najma Og WPtel: [address] [place], [place] [phone] 11/24 vm FOLLOW UP 11/25/2012 Patient Education: Patient Medication Summary Completed 11/25/2012 Appointment: Najma Og WPtel: [address] [place], [place] [phone] LAB 11/11/2012 Patient Education: Patient Medication Summary Completed 11/11/2012 Appointment: Henrietta Lubin WPtel: [address] [place], [place] [phone] WORK IN 08/27/2012 Patient Education: Patient Medication Summary Completed 08/27/2012 Visit Plan: Pt going to get new home BP moniter Continue crestor and restart fish oil and will check fasting lab in 6mos Lab results discussed 05/11/2012 Appointment: Najma Og WPtel: [address] [place], [place] [phone] 05/10 FOLLOW UP 05/11/2012 Patient Education: Patient Medication Summary Completed 05/11/2012 Appointment: Najma Og WPtel: [address] [place], [place] [phone] LAB 05/04/2012 Patient Education: Patient Medication Summary Completed 05/04/2012 Visit Plan: 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 and forehead 03/02/2012 Appointment: Najma Og WPtel: [address] [place], [place] [phone] 03/01 OFFICE SURGERY 03/02/2012 Patient Education: Patient Medication Summary Completed 03/02/2012 Visit Plan: Labs discussed--recheck lab end of Feb/ of Mar Continue current meds and continue to moniter BS daily and BP 1-2 times a week Plan on cryotherapy this fall so can wear longsleeves after procedure See urology 12/11/2011 Appointment: Najma Og WPtel: [address] [place], [place] [phone] FOLLOW UP 12/11/2011 Patient Education: Patient Medication Summary Completed 12/11/2011 Appointment: Najma Og WPtel: [address] [place], [place] [phone] [place] LAB 10/29/2011 Patient Education: Patient Medication Summary Completed 10/29/2011 Appointment: Najma Og WPtel: [address] [place] [address] BP CHECK 08/14/2011 Patient Education: Patient Medication Summary Completed 08/14/2011 Appointment: Najma Og WPtel: [address] [place] [address] ACUTE ILLNESS 07/29/2011 Patient Education: Patient Medication Summary Completed 07/29/2011 Appointment: Najma Og WPtel: [address] [place] [address] BP CHECK 07/23/2011 Patient Education: Patient Medication Summary Completed 07/23/2011 Appointment: Najma Og WPtel: [address] [place] [address] BP CHECK 06/24/2011 Patient Education: Patient Medication Summary Completed 06/24/2011 Appointment: Najma Og WPtel: [address] [place] [address] BP CHECK 05/20/2011 Patient Education: Patient Medication Summary Completed 05/20/2011 Appointment: Najma Og WPtel: [address] [place] [address] BP CHECK 04/29/2011 Patient Education: Patient Medication Summary Completed 04/29/2011 Appointment: Najma Og WPtel: [address] [place] [address] BP CHECK 04/15/2011 Patient Education: Patient Medication Summary Completed 04/15/2011 Visit Plan: Continue current meds Add fi sh oil 1gm daily Glucometer given to use for accuchecks prn 03/18/2011 Appointment: Najma Og WPtel: [address] [place] [address] FOLLOW UP 03/18/2011 Patient Education: Patient Medication Summary Completed 03/18/2011 Appointment: Najma Og WPtel: [address] [place], [place] [phone] [place] LAB 03/14/2011 Patient Education: Patient Medication Summary Completed 03/14/2011 Appointment: Najma Og WPtel: [address] [place], [place] [phone] [place] LAB 11/11/2010 Appointment: Najma Og WPtel: [address] [place], [place] [id number] [place] UA 11/11/2010 Patient Education: Patient Medication Summary Completed 11/11/2010 Appointment: Najma Og WPtel: [address] [place], [place] [phone] LAB 10/29/2010 Patient Education: Patient Medication Summary Completed 10/29/2010 Appointment: Najma Og WPtel: [address] [place], [place] [id number] [place] FOLLOW UP 07/30/2010 Patient Education: Patient Medication Summary Completed 07/30/2010 Appointment: Najma Og WPtel: [address] [place], [place] [phone] [place] LAB 07/23/2010 Patient Education: Patient Medication Summary Completed 07/23/2010 Appointment: Najma Og WPtel: [address] [place], [place] [phone] LAB 04/26/2010 Patient Education: Patient Medication Summary Completed 04/26/2010 Visit Plan: Add PSA to lab Restart Crest or at 10mg daily Trial of Wellbutrin to aid in smoking cessation Check Lipids and LFTs in 3mos 04/24/2010 Appointment: Najma Og WPtel: [address] [place], [place] [id number] [place] FOLLOW UP 04/24/2010 Patient Education: Patient Medication Summary Completed 04/24/2010 Appointment: Najma Og WPtel: [phone] [id number] [place] LAB 04/19/2010 Patient Education: Patient Medication Summary Completed 04/19/2010 Referral: Donavon Keller WPtel: [address] [id number] [place] Referral Completed Instructions Comment . Lab [...] + labs. CBC & CMP at [facility] Discussed needed oral hydration (preferably with [...] forehead . Labs discussed--recheck lab end of Nov /first of Mar Continue current meds and [...]
--- OUTSIDE RECORDS SUMMARY | 2019-10-14 22:31 | XMS REPORT | CCD ---
Author Author Inocente Og D.O. Organization [facility] Address [address] [place] [address] Phone Care Team Providers Care Reprographics Associate Name Role Phone Najma Og D.O. PP Unavailable CCM Unavailable Summary Purpose Interface Exchange Insurance Providers Payer name Policy type / Coverage type Covered alliance party ID Effective Begin Date Effective End Date [employer] MEDICARE Medicare Part B [id number] Unknown [facility] Medicare Part B [id number] Un known Family history Father Diagnosis Age At Onset Diabetes mellitus Type 2 Unknown Myocardial infarction Unknown Brother Diagnosis Age At Onset Diabetes mellitus Type 2 Unknown Mother Diagnosis Age At Onset Osteoarthritis Unknown Cerebrovascular disease Unknown Social History Social History Element Codes Description Effective Dates Tobacco history SNOMED CT: 492159385 Never smoker 12/21/2014 Marital status Unknown 07/30/2010 [...] Fill Instructions escitalopram 10 mg tablet RxNorm: 225948 1 Tablet(s) Oral QD 201911/28/2019 Active fenofibrate micronized 134 mg capsule RxNorm: 538906 TA KE 1 CAPSULE BY MOUTH ONCE DAILY FOR TRIGLYCERIDES 07/08/2019 10/05/2019 Active amlodipine 5 mg tablet RxNorm: 060976 TAKE 1 TABLET BY MOUTH ON CE DAILY 06/16/2019 09/13/2019 Active metformin ER 500 mg tablet,extended release 24 hr RxNorm: 86 0975 TAKE 1 TABLET BY MOUTH ONCE DAILY 06/10/2019 09/07/2019 Active propranolol ER 80 mg capsule,24 hr,extended release RxNorm: 382503 TAKE 1 CAPSULE BY MOUTH ONCE DAILY 06/10/2019 09/07/2019 Active Vitamin D3 25 mcg (1,000 unit) capsule RxNorm: 116732 1 Capsule(s) Oral two times a day 06/02/2019 No Stop Date Active turmeric 400 mg capsule RxNorm: 1 Capsule(s) Oral QD 06/02/2019 No Stop Date Active Fish Oil 120 mg-180 mg-500 mg capsule RxNorm: 2 Capsule(s) Ora l QD 06/02/2019 No Stop Date Active 16.2 mg-0.1037 mg-0.0194 mg tablet RxNorm: 6137105 1 Tablet(s) Oral four times a day as needed abdominal pain/diarrhea 06/02/2019 No Stop D ate Active fenofibrate micronized 134 mg capsule RxNorm: 044603 1 Capsule(s) Oral QD for triglycerides 04/14/2019 07/07/2019 Inactive amlodipine 5 mg tablet RxNorm: 200389 TAKE 1 TABLET BY MOUTH ON CE DAILY 03/22/2019 06/15/2019 Inactive metformin ER 500 mg tablet,extended release 24 hr RxNorm: 86 0975 TAKE 1 TABLET BY MOUTH ONCE DAILY 03/15/2019 06/09/2019 Inactive propranolol ER 80 mg capsule,24 hr,extended release RxNorm: 391143 TAKE 1 CAPSULE BY MOUTH ONCE DAILY 03/15/2019 06/09/2019 Inactive amlodipine 5 mg tablet RxNorm: 953531 1 Tablet(s) PO QD 12/27/2018 Inactive fenofibrate micronized 134 mg capsule RxNorm: 477710 TA KE 1 CAPSULE BY MOUTH ONCE DAILY FOR TRIGLYCERIDES 10/11/2018 04/13/2019 Inactive amlodipine 5 mg tablet RxNorm: 315707 1 Tablet(s) PO QD 09/30/2018 Inactive metformin ER 500 mg tablet,extended release 24 hr RxNorm: 86 0975 TAKE 1 TABLET BY MOUTH ONCE DAILY 09/21/2018 03/14/2019 Inactive propranolol ER 80 mg capsule,24 hr,extended release RxNorm: 073258 TAKE 1 CAPSULE BY MOUTH ONCE DAILY 09/21/2018 03/14/2019 Inactive amlodipine 5 mg tablet RxNorm: 641241 1 Tablet(s) PO QD 08/25/2018 Inactive amlodipine 5 mg tablet RxNorm: 195928 1 Tablet(s) PO QD 08/25/2018 Inactive lisinopril 40 mg tablet RxNorm: 215568 TAKE 1 TABLET BY MOUTH O NCE DAILY 07/21/2018 08/24/2018 Inactive fenofibrate micronized 134 mg capsule RxNorm: 497541 TA KE 1 CAPSULE BY MOUTH ONCE DAILY FOR TRIGLYCERIDES 07/12/2018 10/10/2018 Inactive propranolol ER 80 mg capsule,24 hr,extended release RxNorm: 830830 TAKE 1 CAPSULE BY MOUTH ONCE DAILY 06/21/2018 09/20/2018 Inactive lisinopril 40 mg tablet RxNorm: 967814 TAKE 1 TABLET BY MOUTH O NCE DAILY 04/26/2018 07/20/2018 Inactive metformin ER 500 mg tablet,extended release 24 hr RxNorm: 350272 1 Tablet(s) QD 03/31/2018 09/20/2018 Inactive lisinopril 40 mg tablet RxNorm: 266775 TAKE 1 TABLET BY MOUTH O NCE DAILY 01/28/2018 04/25/2018 Inactive Vitamin D3 5,000 unit tablet RxNorm: 063164 1 Tablet(s) PO QD 01/1908/18/2018 Inactive fenofibrate micronized 134 mg capsule RxNorm: 302235 1 Capsule(s) PO QD for triglycerides 01/19/2018 07/11/2018 Inactive metformin ER 500 mg tablet,extended release 24 hr RxNorm: 016106 1 Tablet(s) QD 12/31/2017 03/30/2018 Inactive metformin ER 500 mg tablet,extended release 24 hr RxNorm: 636493 Tablet(s) 12/30/2017 12/30/2017 Inactive propranolol ER 80 mg capsule,24 hr,extended release RxNorm: 665265 1 Capsule(s) PO QD 12/17/2017 06/14/2018 Inactive metformin ER 500 mg tablet,extended release 24 hr RxNorm: 86 0975 1 Tablet(s) PO QD DUE FOR LABS AND APPT 12/02/2017 12/30/2017 Inactive Crestor 10 mg tablet RxNorm: 285916 TAKE ONE TABLET BY MOUTH ON CE DAILY 11/01/2017 01/18/2018 Inactive lisinopril 40 mg tablet RxNorm: 395878 TAKE ONE TABLET BY MOUTH ONCE DAILY [...] ER 80 mg capsule,24 hr,extended release RxNorm: 371511 1 Capsule(s) PO QD DUE FOR APPT 09/08/2017 12/17/2017 Inactive Crestor 10 mg tablet RxNorm: 177420 1 Tablet(s) PO QD T CHELSI ONE TABLET BY MOUTH DAILY 03/11/2017 09/06/2017 Inactive propranolol ER 80 mg capsule,24 hr,extended release RxNorm: 319133 1 Capsule(s) PO QD TAKE ONE CAPSULE BY MOUTH DAILY - REPLACES AMLODOPINE 03/11/2017 09/08/2017 Inactive metformin ER 500 mg tablet,extended release 24 hr RxNorm: 86 0975 1 Tablet(s) PO QD 03/11/2017 09/08/2017 Inactive lisinopril 40 mg tablet RxNorm: 725356 1 Tablet(s) PO QD 03/11/2017 0 09/06/2017 Inactive lisinopril 40 mg tablet RxNorm: 269725 1 Tablet(s) PO QD 02/16/2017 1 05/11/2016 Inactive metformin ER 500 mg tablet,extended release 24 hr RxNorm: 86 0975 1 Tablet(s) PO QD Due for labs and follow up before further refills 02/16/2017 017 Inactive propranolol ER 80 mg capsule,24 hr,extended release RxNorm: 396146 Capsule(s) TAKE ONE CAPSULE BY MOUTH DAILY - REPLACES AMLODOPINE 11/19/20162016 Inactive lisinopril 40 mg tablet RxNorm: 593337 1 Tablet(s) PO QD 11/17/2016 1 04/18/2016 Inactive metformin ER 500 mg tablet,extended release 24 hr RxNorm: 86 0975 1 Tablet(s) PO QD 11/17/2016 02/16/2017 Inactive lisinopril 40 mg tablet RxNorm: 832477 1 Tablet(s) PO Q D TAKE ONE TABLET BY MOUTH DAILY 08/19/2016 11/17/2016 Inactive metformin ER 500 mg tablet,extended release 24 hr RxNorm: 86 0975 Tablet(s) TAKE ONE TABLET BY MOUTH DAILY 08/19/2016 11/16/2016 Inactive propranolol ER 80 mg capsule,24 hr,extended release RxNorm: 845369 Capsule(s) TAKE ONE CAPSULE BY MOUTH DAILY - REPLACES AMLODOPINE 08/19/20162016 Inactive Crestor 10 mg tablet RxNorm: 775485 TAKE ONE TABLET BY MOUTH DAILY 06/16/2016 03/10/2017 Inactive lisinopril 40 mg tablet RxNorm: 646585 1 Tablet(s) PO Q D TAKE ONE TABLET BY MOUTH DAILY 05/23/2016 08/18/2016 Inactive metformin ER 500 mg tablet,extended release 24 hr RxNorm: 86 0975 TAKE ONE TABLET BY MOUTH DAILY 05/23/2016 08/19/2016 Inactive propranolol ER 80 mg capsule,24 hr,extended release RxNorm: 163887 TAKE ONE CAPSULE BY MOUTH DAILY - REPLACES AMLODOPINE 05/23/2016 08/19/2016 [place] [facility] Crestor 10 mg tablet RxNorm: 037954 TAKE ONE TABLET BY MOUTH DAILY 03/31/2016 06/15/2016 Inactive metformin ER 500 mg tablet,extended release 24 hr RxNorm: 86 0975 TAKE ONE TABLET BY MOUTH DAILY 02/19/2016 05/22/2016 Inactive propranolol ER 80 mg capsule,24 hr,extended release RxNorm: 391055 TAKE ONE CAPSULE BY MOUTH DAILY - REPLACES AMLODOPINE 11/23/2015 05/20/2016 [place] metformin ER 500 mg tablet,extended release 24 hr RxNorm: 86 0975 TAKE ONE TABLET BY MOUTH DAILY 11/08/2015 02/05/2016 Inactive Bactroban Nasal 2 % ointment RxNorm: 320272 Apply topic ally to affected area twice daily 09/10/2015 03/09/2016 Inactive Vibramycin 100 mg capsule RxNorm: 225703 1 Capsule(s) PO BID 201509/23/2015 Inactive lisinopril 40 mg tablet RxNorm: 154373 1 Tablet(s) PO Q D TAKE ONE TABLET BY MOUTH DAILY 08/27/2015 02/22/2016 Inactive metformin ER 500 mg tablet,extended release 24 hr RxNorm: 86 0975 TAKE ONE TABLET BY MOUTH DAILY 08/06/2015 11/03/2015 Inactive Levsin/SL 0.125 mg sublingual tablet RxNorm: 9223971 1 T ablet(s) SL Q4H as needed for stomach cramps 06/29/2015 07/03/2015 Inactive lisinopril 40 mg tablet RxNorm: 791091 Tablet(s) TAKE ONE TABLE T BY MOUTH DAILY 06/07/2015 08/26/2015 Inactive propranolol ER 80 mg capsule,24 hr,extended release RxNorm: 748138 TAKE ONE CAPSULE BY MOUTH DAILY - REPLACES AMLODOPINE 05/30/2015 11/22/2015 [place] metformin ER 500 mg tablet,extended release 24 hr RxNorm: 86 0975 1 Tablet(s) PO QD 05/10/2015 08/05/2015 Inactive Crestor 10 mg tablet RxNorm: 554038 TAKE ONE TABLET BY MOUTH DAILY 04/18/2015 10/14/2015 Inactive metformin ER 500 mg tablet,extended release 24 hr RxNorm: 86 0975 TAKE ONE TABLET BY MOUTH DAILY 02/07/2015 05/10/2015 Inactive sildenafil 20 mg tablet RxNorm: 139376 1 Tablet(s) PO QD 01/17/2015 1 04/17/2014 Inactive propranolol ER 80 mg capsule,24 hr,extended release RxNorm: 273759 1 Capsule(s) PO QD replaces amlodopine 11/28/2014 05/26/2015 Inactive [[facility] -- BIN:[id number], PCN: [id number], Group: [id number], ID# [id number], Process claim through [employer], for questions: . THIS IS NOT INSURANCE.] lisinopril 40 mg tablet RxNorm: 970228 TAKE ONE TABLET BY MOUTH DAILY 11/16/2014 06/07/2015 Inactive lisinopril 40 mg tablet RxNorm: 345434 1 Tablet(s) PO QD 08/21/2014 0 11/15/2014 Inactive [AttnRPh: Saving apply/adjudicate RxGRP: SG20 RxBIN:[id number] RxPCN: ID#:[id number]] lisinopril 40 mg tablet RxNorm: 964149 1 Tablet(s) PO Q D NEEDS SEEN FOR APPOINTMENT 07/14/2014 08/21/2014 Inactive [AttnRPh: Saving apply/adjudicate RxGRP:SG20 RxBIN:[id number] RxPCN: ID#:[id number]] Crestor 10 mg tablet RxNorm: 621867 TAKE ONE TABLET BY MOUTH EV EILEEN DAY 07/06/2014 01/01/2015 Inactive metformin ER 500 mg tablet,extended release 24 hr RxNorm: 86 0975 1 Tablet(s) QD TAKE ONE TABLET BY MOUTH ONCE A DAY 06/09/2014 12/05/2014 Inactive propranolol ER 80 mg capsule,24 hr,extended release RxNorm: 827763 1 Capsule(s) PO QD replaces amlodopine 06/05/2014 11/28/2014 Inactive [[employer] -- BIN:[id number], PCN: [id number], Group: [id number], ID# [id number], Process claim through [employer], for questions: . THIS IS NOT INSURANCE.] propranolol ER 80 mg capsule,24 hr,extended release RxNorm: 340537 1 Capsule(s) PO QD replaces amlodopine 03/07/2014 06/05/2014 Inactive [[facility] -- BIN:[id number], PCN: [id number], Group: [id number], ID# [id number], Process claim through [employer], for questions: . THIS IS NOT INSURANCE.] metformin ER 500 mg tablet,extended release 24 hr RxNorm: 86 0975 TAKE ONE TABLET BY MOUTH ONCE A DAY 12/15/2013 06/09/2014 Inactive propranolol ER 80 mg capsule,24 hr,extended release RxNorm: 200941 1 Capsule(s) PO QD replaces amlodopine 12/09/2013 03/07/2014 Inactive [[facility] -- BIN:[id number], PCN: ASPROD1, Group: [id number], ID# [id number], Process claim through [employer], for questions: . THIS IS NOT INSURANCE.] acyclovir 800 mg tablet RxNorm: 295242 1 Tablet(s) PO QID 09/23/2013 09/29/2013 Inactive gabapentin 300 mg capsule RxNorm: 580765 1 Capsule(s) PO BID 201310/07/2013 Inactive metformin ER 500 mg tablet,extended release 24 hr RxNorm: 86 0975 1 Tablet(s) PO QD 09/19/2013 12/14/2013 Inactive propranolol ER 80 mg capsule,24 hr,extended release RxNorm: 407798 1 Capsule(s) PO QD replaces amlodopine 09/15/2013 12/09/2013 Inactive metformin ER 500 mg 24 hr tablet,extended release RxNorm: 86 0975 1 Tablet(s) PO QD 09/15/2013 09/18/2013 Inactive lisinopril 40 mg tablet RxNorm: 248189 1 Tablet(s) PO QD 07/19/2013 0 07/14/2014 Inactive Crestor 10 mg tablet RxNorm: 239981 Tablet(s) PO TAKE O NE TABLET BY MOUTH EVERY DAY 07/12/2013 07/05/2014 Inactive propranolol ER 80 mg capsule,24 hr,extended release RxNorm: 547016 1 Capsule(s) PO QD replaces amlodopine 06/20/2013 09/15/2013 Inactive triamcinolone acetonide 0.1 % topical ointment RxNorm: 14256 36 Application TOP BID 06/20/2013 06/26/2013 Inactive Crestor 10 mg tablet RxNorm: 176863 1 Tablet(s) PO QD 04/18/201310/2013 Inactive Viagra 100 mg tablet RxNorm: 284884 1 Tablet(s) PO as directed 01/0508/18/2018 Inactive TAKE ONE TABLET BY MOUTH DIRECTED Crestor 10 mg tablet RxNorm: 447965 1 Tablet(s) PO QD 01/17/201304/06 Inactive metformin ER 500 mg tablet,extended release 24 hr RxNorm: 86 0975 1 Tablet(s) PO QD TAKE ONE TABLET BY MOUTH EVERY DAY 12/23/2012 09/15/2013 Inactive triamcinolone acetonide 0.1 % topical ointment RxNorm: 93200 36 Application TOP BID 08/27/2012 09/02/2012 Inactive ketoconazole 2 % topical cream RxNorm: 444453 1 Application TOP QAM 08/27/2012 09/02/2012 Inactive lisinopril 40 mg tablet RxNorm: 826370 1 Tablet(s) PO QD 07/21/2012 0 07/15/2013 Inactive Crestor 10 mg tablet RxNorm: 929039 1 Tablet(s) PO QD 07/21/201210/04 Inactive amlodipine 10 mg tablet RxNorm: 150486 1 Tablet(s) PO QHS 07/21/2012 07/15/2013 Inactive metformin ER 500 mg tablet,extended release 24 hr RxNorm: 86 0977 Tablet(s) PO TAKE ONE TABLET BY MOUTH EVERY DAY 03/31/2012 12/22/2012 Inactive lisinopril 40 mg tablet RxNorm: 511406 1 Tablet(s) PO QD 07/29/2011 0 07/20/2012 Inactive amlodipine 10 mg tablet RxNorm: 660844 1 Tablet(s) PO QHS 07/29/2011 07/20/2012 Inactive amlodipine 10 mg Tab RxNorm: 229207 1 Tablet(s) PO QHS 07/29/2011 Inactive Viagra 100 mg tablet RxNorm: 014349 1 Tablet(s) PO as directed 07/0601/24/2013 Inactive TAKE ONE TABLET BY MOUTH DIRECTED Crestor 10 mg tablet RxNorm: 098699 1 Tablet(s) PO QD 07/29/201107/05 Inactive Norvasc 5 mg Tab RxNorm: 206459 1 Tablet(s) PO QD 07/16/2011 07/28/19 12 Inactive Norvasc 5 mg Tab RxNorm: 373363 1 Tablet(s) PO QD 06/26/2011 07/15/19 12 Inactive lisinopril 40 mg Tab RxNorm: 872764 1 Tablet(s) PO QD 05/13/201107/06 Inactive metformin ER 500 mg tablet,extended release 24 hr RxNorm: 86 0977 1 Tablet(s) PO QD 03/18/2011 07/28/2011 Inactive Crestor 10 mg Tab RxNorm: 056364 1 Tablet(s) PO QHS 01/27/20112011 Inactive metformin ER 500 mg 24 hr Tab RxNorm: 453687 1 Tablet(s) PO QD 11/0403/17/2011 Inactive Viagra 100 mg Tab RxNorm: 112599 Tablet(s) PO TAKE ON E TABLET BY MOUTH DIRECTED 08/26/2010 07/28/2011 Inactive metformin ER 500 mg 24 hr Tab RxNorm: 440283 1 Tablet(s) PO QD 07/0611/18/2010 Inactive Crestor 10 mg Tab RxNorm: 044155 1 Tablet(s) PO QHS 07/30/20102010 Inactive Crestor 10 mg Tab RxNorm: 937146 1 Tablet(s) PO QHS 05/20/20102010 Inactive Wellbutrin SR 150 mg Tab RxNorm: 341715 1 Tablet(s) PO QAM 04/24/19 11 07/22/2010 Inactive Multivitamin And Mineral tablet RxNorm: 1 Tablet(s) PO QD No Start Date Active FreeStyle Lite Strips RxNorm: 1 Unit Dose Miscel laneous AC & HS check blood sugar AC and HS No Start Date Active Co Q-10 200 mg capsule RxNorm: 266806 1 Capsule(s) PO QD No Start Date Active lancets RxNorm: 1 Milliliter(s) Miscellaneous AC & HS No Start Robert e Active Vitamin D3 4,000 unit capsule RxNorm: 0207269 1 Capsule(s) PO QD No Start Date 07/08/2016 Inactive Fish Oil 360 mg-1,200 mg capsule RxNorm: 340886 2 Capsule(s) PO QD No Start Date 01/30/2019 Inactive hydrocodone 5 mg-acetaminophen 325 mg tablet RxNorm: 549073 1 Tablet(s) PO Q4H as needed for severe pain No Start Date 12/30/2015 Inactive Xanax 0.25 mg tablet RxNorm: 569462 1/2 Tablet(s) PO PRN for se andrea stress No Start Date 07/08/2016 Inactive lisinopril 40 mg Tab RxNorm: 219940 1 Tablet(s) PO QD No Start Date 0 05/12/2011 Inactive Fish Oil 1,000 mg capsule RxNorm: 1 Capsule(s) PO QD No Start Date 09/18/2014 Inactive naproxen 500 mg Tab RxNorm: 418690 1 Tablet(s) PO BID No Start Date 0 07/28/2011 Inactive aspirin 81 mg tablet RxNorm: 377378 1 Tablet(s) PO QD No Start Date 0 05/09/2018 Inactive Crestor 10 mg Tab RxNorm: 399202 1 Tablet(s) PO QD No Start Date 07/06 Inactive Crestor 5 mg tablet RxNorm: 865879 1 Tablet(s) PO QD No Start Date Inactive Fish Oil Oral RxNorm: Oral No Start Date 09/18/2014 Inactive Viagra 100 mg Tab RxNorm: 608863 1 Tablet(s) PO as directed No Star [...] Code Item Item Code Result Date [facility] Location GLYCOSYLATED HEMOGLOBIN TEST 94568 Hgb A1c 63557-6 6.6 % 0 08/24/2019 Unknown MEAN GLUC 8678509 Calc Mean Gluc 143 mg/dL 08/24/2019 Unkn own COMPREHENSIVE METABOLIC 97749 AST 24 U/L 2019 Unknown COMPREHENSIVE METABOLIC 09797 ALT 32 U/L 2019 Unknown COMPREHENSIVE METABOLIC 34528 BUN 14 mg/dL 2019 Unknown COMPREHENSIVE METABOLIC 74513 ALBUMIN 4.7 g/dL 2019 Unknown COMPREHENSIVE METABOLIC 96001 CHLORIDE 103 mmol/L 08/23 Unknown COMPREHENSIVE METABOLIC 02721 Bili Total 0.5 mg/dL 08/23 Unknown COMPREHENSIVE METABOLIC 63092 ALK PHOS 57 U/L 2019 Unknown COMPREHENSIVE METABOLIC 00960 SODIUM 140 mmol/L 08/23 Unknown COMPREHENSIVE METABOLIC 95858 CREATININE 1.20 mg/dL 08/05 Unknown COMPREHENSIVE METABOLIC 43193 CALCIUM 9.9 mg/dL 2019 Unknown COMPREHENSIVE METABOLIC 14707 POTASSIUM 4.4 mmol/L 08/23 Unknown COMPREHENSIVE METABOLIC 99722 Total Protein 6.9 g/dL Unknown COMPREHENSIVE METABOLIC 03341 Glucose 123 mg/dL 2019 Unknown COMPREHENSIVE METABOLIC 95833 Bicarbonate 25 mmol/L 08/05 Unknown COMPREHENSIVE METABOLIC 01976 AGAP 12 mmol/L 2019 Unknown GFR CALC 5501423 GFR Non Afr Amr 60 mL/min 08/24/2019 Unk nown GFR CALC 4852977 GFR Afr Amr >60 mL/min 08/24/2019 Unknow n GLYCOSYLATED HEMOGLOBIN TEST 85242 Hgb A1c 56525-4 6.7 % 0 05/24/2019 Unknown COMPREHENSIVE METABOLIC 36535 AST 21 U/L 2019 Unknown COMPREHENSIVE METABOLIC 25836 ALT 26 U/L 2019 Unknown COMPREHENSIVE METABOLIC 50236 BUN 14 mg/dL 2019 Unknown COMPREHENSIVE METABOLIC 32550 ALBUMIN 4.4 g/dL 2019 Unknown COMPREHENSIVE METABOLIC 36385 CHLORIDE 102 mmol/L 05/24 Unknown COMPREHENSIVE METABOLIC 60177 Bili Total 0.4 mg/dL 05/24 Unknown COMPREHENSIVE METABOLIC 89588 ALK PHOS 55 U/L 2019 Unknown COMPREHENSIVE METABOLIC 50448 SODIUM 139 mmol/L 05/24 Unknown COMPREHENSIVE METABOLIC 80942 CREATININE 1.28 mg/dL 05/07 Unknown COMPREHENSIVE METABOLIC 48734 CALCIUM 9.7 mg/dL 2019 Unknown COMPREHENSIVE METABOLIC 02793 POTASSIUM 4.7 mmol/L 05/24 Unknown COMPREHENSIVE METABOLIC 17335 Total Protein 6.8 g/dL Unknown COMPREHENSIVE METABOLIC 26775 Glucose 130 mg/dL 2019 Unknown COMPREHENSIVE METABOLIC 26668 Bicarbonate 29 mmol/L 05/07 Unknown COMPREHENSIVE METABOLIC 31303 AGAP 8 mmol/L 2019 Unknown MEAN GLUC 1932791 Calc Mean Gluc 146 mg/dL 05/24/2019 Unkn own GFR CALC 7199409 GFR Non Afr Amr 56 mL/min 05/24/2019 Unk nown GFR CALC 7999894 GFR Afr Amr >60 mL/min 05/24/2019 Unknow n MEAN GLUC 4429379 Calc Mean Gluc 140 mg/dL 01/26/2019 Unkn own GLYCOSYLATED HEMOGLOBIN TEST 72749 Hgb A1c 78073-0 6.5 % 1 Unknown COMPREHENSIVE METABOLIC 99244 AST 17 U/L 2018 Unknown COMPREHENSIVE METABOLIC 44942 ALT 19 U/L 2018 Unknown COMPREHENSIVE METABOLIC 58369 BUN 19 mg/dL 2018 Unknown COMPREHENSIVE METABOLIC 45412 ALBUMIN 4.3 g/dL 2018 Unknown COMPREHENSIVE METABOLIC 43122 CHLORIDE 103 mmol/L 01/26 Unknown COMPREHENSIVE METABOLIC 04035 Bili Total 0.6 mg/dL 01/26 Unknown COMPREHENSIVE METABOLIC 07048 ALK PHOS 60 U/L 2018 Unknown COMPREHENSIVE METABOLIC 93404 SODIUM 140 mmol/L 01/26 Unknown COMPREHENSIVE METABOLIC 34688 CREATININE 1.21 mg/dL 01/05 Unknown COMPREHENSIVE METABOLIC 25875 CALCIUM 9.6 mg/dL 2018 Unknown COMPREHENSIVE METABOLIC 53604 POTASSIUM 4.5 mmol/L 01/26 Unknown COMPREHENSIVE METABOLIC 15439 Total Protein 6.7 g/dL Unknown COMPREHENSIVE METABOLIC 43887 Glucose 111 mg/dL 2018 Unknown COMPREHENSIVE METABOLIC 92282 Bicarbonate 28 mmol/L 01/05 Unknown COMPREHENSIVE METABOLIC 64539 AGAP 9 mmol/L 2018 Unknown COMPLETE BLOOD COUNT 3296349 WBC 10.7 10e9/L 019 Unknown COMPLETE BLOOD COUNT 3687510 RBC 4.38 10e12/L 2018 Unknown COMPLETE BLOOD COUNT 4650620 HEMOGLOBIN 13.7 g/dL 01/27/20 19 Unknown COMPLETE BLOOD COUNT 3606027 HEMATOCRIT 42.0 % 01/27/20 19 Unknown COMPLETE BLOOD COUNT 5510785 MCV 95.9 fL 9 Unknown COMPLETE BLOOD COUNT 2216001 MCH 31.3 pg 9 Unknown COMPLETE BLOOD COUNT 6385568 MCHC 32.6 g/dL 9 Unknown COMPLETE BLOOD COUNT 1389534 PLATELET COUNT 232 10e9/L Unknown COMPLETE BLOOD COUNT 7678223 Mean Plt Volume 11.4 fL Unknown COMPLETE BLOOD COUNT 5574248 Neut Auto 68.7 % 9 Unknown COMPLETE BLOOD COUNT 5007621 Lymph Auto 21.2 % 01/27/20 19 Unknown COMPLETE BLOOD COUNT 4724300 [place] Auto 8.1 % 9 Unknown COMPLETE BLOOD COUNT 6236736 RDW 14.1 % 9 Unknown COMPLETE BLOOD COUNT 1814644 Eos Auto 1.8 % 9 Unknown COMPLETE BLOOD COUNT 5395618 Baso Auto 0.2 % 9 Unknown COMPLETE BLOOD COUNT 4063379 Neutrophil Abs 7.35 10e9/L Unknown COMPLETE BLOOD COUNT 4116890 Lymphocyte Abs 2.27 10e9/L Unknown COMPLETE BLOOD COUNT 3619634 Monocyte Abs 0.87 10e9/L 01/05 Unknown COMPLETE BLOOD COUNT 2052975 Eosinophil Abs 0.19 10e9/L Unknown COMPLETE BLOOD COUNT 7098417 RDW-SD 47.7 fL 9 Unknown COMPLETE BLOOD COUNT 2946476 Basophil Abs 0.02 10e9/L 01/05 Unknown GFR CALC 0624289 GFR Non Afr Amr 59 mL/min 01/26/2019 Unk nown GFR CALC [id number] GFR Afr Amr >60 mL/min 01/26/2019 Unknow n LIPID GROUP 96718 Cholesterol 215 mg/dL 01/26/2019 Unkno wn LIPID GROUP 36234 Triglyceride 221 mg/dL 01/26/2019 Unkn own LIPID GROUP 72266 HDL CHOLESTEROL 41 mg/dL 01/26/2019 U nknown LIPID GROUP 65687 Chol/HDL Ratio 5.24 ratio 01/26/2019 U nknown LIPID GROUP 60832 NON-HDL Chol 174 mg/dL 01/26/2019 Unkn own LIPID GROUP 28150 LDL Cholesterol 130 mg/dL 01/26/2019 [place] [address] Glucose 104 mg/dL 09/30 [place] [address] CREATININE 1.18 mg/dL [place] [address] BUN 19 mg/dL 09/30 [place] [address] SODIUM 139 mmol/L 09/05 [place] [address] POTASSIUM 4.1 mmol/L 09/05 [place] [address] CHLORIDE 105 mmol/L 09/05 [place] [address] Bicarbonate 26 mmol/L [place] [address] AGAP 8 mmol/L 09/30 [place] [address] CALCIUM 9.3 mg/dL 09/30 Unknown GFR CALC 1944038 GFR Non Afr Amr >60 mL/min 09/30/2018 Un known GFR CALC 7638381 GFR Afr Amr >60 mL/min 09/30/2018 Unknow n MICROALBUMIN URINE RANDOM 81103 U Microalbumin <2.0 mg/L 08/19/2018 Unknown MICROALBUMIN URINE RANDOM 69222 U Creatinine 66 mg/dL 0 08/19/2018 Unknown MICROALBUMIN URINE RANDOM 16858 ALB/CR Ratio <3.0 mg/gCR 08/19/2018 Unknown COMPREHENSIVE METABOLIC 37895 AST 21 U/L 2018 Unknown COMPREHENSIVE METABOLIC 68744 ALT 20 U/L 2018 Unknown COMPREHENSIVE METABOLIC 57201 BUN 31 mg/dL 2018 Unknown COMPREHENSIVE METABOLIC 65461 ALBUMIN 4.4 g/dL 2018 Unknown COMPREHENSIVE METABOLIC 93947 CHLORIDE 105 mmol/L 08/16 Unknown COMPREHENSIVE METABOLIC 46184 Bili Total 0.5 mg/dL 08/16 Unknown COMPREHENSIVE METABOLIC 76651 ALK PHOS 40 U/L 2018 Unknown COMPREHENSIVE METABOLIC 08856 SODIUM 140 mmol/L 08/16 Unknown COMPREHENSIVE METABOLIC 51474 CREATININE 1.45 mg/dL 08/04 Unknown COMPREHENSIVE METABOLIC 74458 CALCIUM 9.8 mg/dL 2018 Unknown COMPREHENSIVE METABOLIC 20948 POTASSIUM 5.1 mmol/L 08/16 Unknown COMPREHENSIVE METABOLIC 15742 Total Protein 6.9 g/dL Unknown COMPREHENSIVE METABOLIC 57325 Glucose 110 mg/dL 2018 Unknown COMPREHENSIVE METABOLIC 13693 Bicarbonate 25 mmol/L 08/04 Unknown COMPREHENSIVE METABOLIC 93739 AGAP 10 mmol/L 2018 Unknown GFR CALC 2239695 GFR Non Afr Amr 48 mL/min 08/16/2018 Unk nown GFR CALC 1744368 GFR Afr Amr 58 mL/min 08/16/2018 Unknown GLYCOSYLATED HEMOGLOBIN TEST 56324 Hgb A1c 09357-3 5.9 % 0 08/16/2018 Unknown LIPID GROUP 64167 Cholesterol 226 mg/dL 08/16/2018 Unkno wn LIPID GROUP 73882 Triglyceride 335 mg/dL 08/16/2018 Unkn own LIPID GROUP 85038 HDL CHOLESTEROL 32 mg/dL 08/16/2018 U nknown LIPID GROUP 66226 Chol/HDL Ratio 7.06 ratio 08/16/2018 U nknown LIPID GROUP 47220 NON-HDL Chol 194 mg/dL 08/16/2018 Unkn own LIPID GROUP 26289 LDL Cholesterol 127 mg/dL 08/16/2018 U nknown THYROID STIMULATING HORMONE 78458 TSH 2.475 uIU/mL 08/16/2018 Unknown COMPLETE BLOOD COUNT [id number] WBC 7.5 10e9/L 08/17/19 19 Unknown COMPLETE BLOOD COUNT [id number] RBC 4.09 10e12/L 2018 Unknown COMPLETE BLOOD COUNT [id number] HEMOGLOBIN 12.9 g/dL 08/17/19 19 Unknown COMPLETE BLOOD COUNT [id number] HEMATOCRIT 40.0 % 08/17/19 19 Unknown COMPLETE BLOOD COUNT [id number] MCV 97.8 fL 9 Unknown COMPLETE BLOOD COUNT [id number] MCH 31.5 pg 9 Unknown COMPLETE BLOOD COUNT 7235086 MCHC 32.3 g/dL 9 Unknown COMPLETE BLOOD COUNT [id number] PLATELET COUNT 258 10e9/L Unknown COMPLETE BLOOD COUNT [id number] Mean Plt Volume 11.4 fL Unknown COMPLETE BLOOD COUNT [id number] Neut Auto 62.9 % 9 Unknown COMPLETE BLOOD COUNT [id number] Lymph Auto 27.3 % 08/17/19 19 Unknown COMPLETE BLOOD COUNT [id number] [place] Auto 8.2 % 9 Unknown COMPLETE BLOOD COUNT 6468168 RDW 13.3 % 9 Unknown COMPLETE BLOOD COUNT 5911062 Eos Auto 1.5 % 9 Unknown COMPLETE BLOOD COUNT 9120139 Baso Auto 0.1 % 9 Unknown COMPLETE BLOOD COUNT 7125911 Neutrophil Abs 4.72 10e9/L Unknown COMPLETE BLOOD COUNT [id number] Lymphocyte Abs 2.05 10e9/L Unknown COMPLETE BLOOD COUNT [id number] Monocyte Abs 0.62 10e9/L 08/04 Unknown COMPLETE BLOOD COUNT [id number] Eosinophil Abs 0.11 10e9/L Unknown COMPLETE BLOOD COUNT 9157933 RDW-SD 46.7 fL 9 Unknown COMPLETE BLOOD COUNT [id number] Basophil Abs 0.01 10e9/L 08/04 Unknown MEAN GLUC 4995083 Calc Mean Gluc 123 mg/dL 08/16/2018 Unkn own LIP[facility] GROUP 03608 Cholesterol 212 mg/dL 05/05/2018 [facility] wn LIP[facility] 81023 Triglyceride 271 mg/dL 05/05/2018 Unkn own L[facility] 50437 HDL CHOLESTEROL 38 mg/dL 05/05/2018 U nknown LIPID GROUP 92367 Chol/HDL Ratio 5.58 ratio 05/05/2018 U nknown LIPID GROUP 23510 NON-HDL Chol 174 mg/dL 05/05/2018 Unkn own LIP[facility] GROUP 73940 LDL Cholesterol 120 mg/dL 05/05/2018 U nknown GFR CALC 5319210 GFR Non Afr Amr 49 mL/min 05/05/2018 Unk nown GFR CALC 6169704 GFR Afr Amr 59 mL/min 05/05/2018 Unknown GLYCOSYLATED HEMOGLOBIN TEST 27017 Hgb A1c 38087-3 6.0 % 0 05/05/2018 Unknown MEAN GLUC 4551240 Calc Mean Gluc 126 mg/dL 05/05/2018 Unkn own COMPREHENSIVE METABOLIC 96363 AST 18 U/L 2018 Unknown COMPREHENSIVE METABOLIC 85948 ALT 23 U/L 2018 Unknown COMPREHENSIVE METABOLIC 03102 BUN 30 mg/dL 2018 Unknown COMPREHENSIVE METABOLIC 38973 ALBUMIN 4.3 g/dL 2018 Unknown COMPREHENSIVE METABOLIC 90548 CHLORIDE 106 mmol/L 05/05 Unknown COMPREHENSIVE METABOLIC 01082 Bili Total 0.4 mg/dL 05/05 Unknown COMPREHENSIVE METABOLIC 63597 ALK PHOS 39 U/L 2018 Unknown COMPREHENSIVE METABOLIC 86684 SODIUM 139 mmol/L 05/05 Unknown COMPREHENSIVE METABOLIC 01203 CREATININE 1.44 mg/dL 04/08 Unknown COMPREHENSIVE METABOLIC 41894 CALCIUM 9.6 mg/dL 2018 Unknown COMPREHENSIVE METABOLIC 15110 POTASSIUM 4.7 mmol/L 05/05 Unknown COMPREHENSIVE METABOLIC 35261 Total Protein 6.6 g/dL Unknown COMPREHENSIVE METABOLIC 46277 Glucose 112 mg/dL 2018 Unknown COMPREHENSIVE METABOLIC 48528 Bicarbonate 28 mmol/L 04/08 Unknown COMPREHENSIVE METABOLIC 72772 AGAP 5 mmol/L 2018 Unknown THYROID STIMULATING HORMONE 03080 TSH 3.725 uIU/mL 05/05/2018 Unknown COMPLETE BLOOD COUNT 5311651 WBC 8.2 10e9/L 05/05/19 19 Unknown COMPLETE BLOOD COUNT 7548629 RBC 4.02 10e12/L 2018 Unknown COMPLETE BLOOD COUNT 6486221 HEMOGLOBIN 12.7 g/dL 05/05/19 19 Unknown COMPLETE BLOOD COUNT 4361207 HEMATOCRIT 39.3 % 05/05/19 19 Unknown COMPLETE BLOOD COUNT 8370605 MCV 97.8 fL 9 Unknown COMPLETE BLOOD COUNT 2714979 MCH 31.6 pg 9 Unknown COMPLETE BLOOD COUNT 0412722 MCHC 32.3 g/dL 9 Unknown COMPLETE BLOOD COUNT 4389488 PLATELET COUNT 213 10e9/L Unknown COMPLETE BLOOD COUNT 1393041 Mean Plt Volume 11.7 fL Unknown COMPLETE BLOOD COUNT 5225267 Neut Auto 55.7 % 9 Unknown COMPLETE BLOOD COUNT 8085194 Lymph Auto 33.2 % 05/05/19 19 Unknown COMPLETE BLOOD COUNT 3365641 [place] Auto 8.5 % 9 Unknown COMPLETE BLOOD COUNT 2476968 RDW 13.9 % 9 Unknown COMPLETE BLOOD COUNT 9411228 Eos Auto 2.4 % 9 Unknown COMPLETE BLOOD COUNT 8997311 Baso Auto 0.2 % 9 Unknown COMPLETE BLOOD COUNT [id number] Neutrophil Abs 4.57 10e9/L Unknown COMPLETE BLOOD COUNT [id number] Lymphocyte Abs 2.72 10e9/L Unknown COMPLETE BLOOD COUNT 1252729 Monocyte Abs 0.70 10e9/L 04/08 Unknown COMPLETE BLOOD COUNT 0521776 Eosinophil Abs 0.20 10e9/L Unknown COMPLETE BLOOD COUNT 9300113 RDW-SD 48.8 fL 9 Unknown COMPLETE BLOOD COUNT [id number] Basophil Abs 0.02 10e9/L 04/08 Unknown MICROALBUMIN URINE RANDOM 08560 U Microalbumin 19.3 mg/L 01/19/2018 Unknown MICROALBUMIN URINE RANDOM 11652 U Creatinine 96 mg/dL 1 Unknown MICROALBUMIN URINE RANDOM 66534 ALB/CR Ratio 20.1 mg/gCR 01/19/2018 Unknown LIPID GROUP 91530 Cholesterol 173 mg/dL 01/13/2018 [facility] w[facility] LIP[facility] 02381 Triglyceride 386 mg/dL 01/13/2018 [facility]kn own LIP[facility] 70775 HDL CHOLESTEROL 37 mg/dL 01/13/2018 U nknown LIPID GROUP 33880 Chol/HDL Ratio 4.68 ratio 01/13/2018 U nknown LIPID GROUP 43383 NON-HDL Chol 136 mg/dL 01/13/2018 Unkn own LIP[facility] GROUP 91162 LDL Cholesterol 59 mg/dL 01/13/2018 U nknown COMPLETE BLOOD COUNT 6064197 WBC TNP:Client Request 01/13/2018 Unknown COMPLETE BLOOD COUNT 5301339 RBC TNP:Client Request 01/13/2018 Unknown COMPLETE BLOOD COUNT 9804910 HEMOGLOBIN TNP:Client Request 01/13/2018 Unknown COMPLETE BLOOD COUNT 3124270 HEMATOCRIT TNP:Client Request 01/13/2018 Unknown COMPLETE BLOOD COUNT [id number] MCV TNP:Client Request 01/13/2018 Unknown COMPLETE BLOOD COUNT [id number] MCH TNP:Client Request 01/13/2018 Unknown COMPLETE BLOOD COUNT 8716869 MCHC TNP:Client Request 01/13/2018 Unknown COMPLETE BLOOD COUNT [id number] PLATELET COUNT TNP:Client Req uest 01/13/2018 Unknown COMPLETE BLOOD COUNT 5057734 Mean Plt Volume TNP:Client Re quest 01/13/2018 Unknown COMPLETE BLOOD COUNT 2230318 Neut Auto TNP:Client Request 01/13/2018 Unknown COMPLETE BLOOD COUNT 4168669 Lymph Auto TNP:Client Request 01/13/2018 Unknown COMPLETE BLOOD COUNT 4276068 [place] Auto TNP:Client Request 01/13/2018 Unknown COMPLETE BLOOD COUNT 7138603 RDW TNP:Client Request 01/13/2018 Unknown COMPLETE BLOOD COUNT 3425131 Eos Auto TNP:Client Request 01/13/2018 Unknown COMPLETE BLOOD COUNT [id number] Baso Auto TNP:Client Request 01/13/2018 Unknown COMPLETE BLOOD COUNT [id number] Neutrophil Abs TNP:Client Req uest 01/13/2018 Unknown COMPLETE BLOOD COUNT [id number] Lymphocyte Abs TNP:Client Req uest 01/13/2018 Unknown COMPLETE BLOOD COUNT 1133764 Monocyte Abs TNP:Client Reque st 01/13/2018 Unknown COMPLETE BLOOD COUNT 3584738 Eosinophil Abs TNP:Client Req uest 01/13/2018 Unknown COMPLETE BLOOD COUNT 8110375 RDW-SD TNP:Client Request 01/13/2018 Unknown COMPLETE BLOOD COUNT 9858590 Basophil Abs TNP:Client Reque st 01/13/2018 Unknown GLYCOSYLATED HEMOGLOBIN TEST 12440 Hgb A1c 92188-0 6.2 % 1 Unknown THYROID STIMULATING HORMONE 20338 TSH 2.764 uIU/mL 01/13/2018 Unknown COMPREHENSIVE METABOLIC 54657 AST 19 U/L 2017 Unknown COMPREHENSIVE METABOLIC 63384 ALT 21 U/L 2017 Unknown COMPREHENSIVE METABOLIC 95751 BUN 16 mg/dL 2017 Unknown COMPREHENSIVE METABOLIC 84871 ALBUMIN 4.2 g/dL 2017 Unknown COMPREHENSIVE METABOLIC 95918 CHLORIDE 105 mmol/L 01/13 Unknown COMPREHENSIVE METABOLIC 22099 Bili Total 0.5 mg/dL 01/13 Unknown COMPREHENSIVE METABOLIC 11183 ALK PHOS 85 U/L 2017 Unknown COMPREHENSIVE METABOLIC 76956 SODIUM 139 mmol/L 01/13 Unknown COMPREHENSIVE METABOLIC 86568 CREATININE 1.07 mg/dL 01/04 Unknown COMPREHENSIVE METABOLIC 39233 CALCIUM 9.2 mg/dL 2017 Unknown COMPREHENSIVE METABOLIC 38856 POTASSIUM 4.4 mmol/L 01/13 Unknown COMPREHENSIVE METABOLIC 03787 Total Protein 7.7 g/dL Unknown COMPREHENSIVE METABOLIC 84643 Glucose 130 mg/dL 2017 Unknown COMPREHENSIVE METABOLIC 72246 Bicarbonate 27 mmol/L 01/04 Unknown COMPREHENSIVE METABOLIC 52256 AGAP 7 mmol/L 2017 Unknown PSA EQUIMOLAR JERSON 31303 PSA Total 1.16 ng/mL 8 Unknown MEAN GLUC 3029043 Calc Mean Gluc 131 mg/dL 01/13/2018 Unkn own GFR CALC 4464438 GFR Non Afr Amr >60 mL/min 01/13/2018 Un known GFR CALC 4116642 GFR Afr Amr >60 mL/min 01/13/2018 Unknow n MEAN GLUC 3109246 Calc Mean Gluc 134 mg/dL 10/06/2017 Unkn own GFR CALC 0918150 GFR Non Afr Amr >60 mL/min 10/06/2017 Un known GFR CALC 7498167 GFR Afr Amr >60 mL/min 10/06/2017 Unknow n GLYCOSYLATED HEMOGLOBIN TEST 41748 Hgb A1c 60768-7 6.3 % 0 10/06/2017 Unknown VITAMIN B 12 73817 VITAMIN B12 1202 pg/mL 10/06/2017 Unk nown COMPLETE BLOOD COUNT 5383730 WBC 7.4 10e9/L 10/07/19 18 Unknown COMPLETE BLOOD COUNT 3698901 RBC 4.24 10e12/L 2017 Unknown COMPLETE BLOOD COUNT 6545765 HEMOGLOBIN 13.5 g/dL 10/07/19 18 Unknown COMPLETE BLOOD COUNT 9140772 HEMATOCRIT 41.6 % 10/07/19 18 Unknown COMPLETE BLOOD COUNT 1956582 MCV 98.1 fL 8 Unknown COMPLETE BLOOD COUNT 9124948 MCH 31.8 pg 8 Unknown COMPLETE BLOOD COUNT 8448721 MCHC 32.5 g/dL 8 Unknown COMPLETE BLOOD COUNT 7156707 PLATELET COUNT 223 10e9/L 06/2017 Unknown COMPLETE BLOOD COUNT 9679071 Mean Plt Volume 11.9 fL 06/2017 Unknown COMPLETE BLOOD COUNT 4826696 Neut Auto 58.0 % 8 Unknown COMPLETE BLOOD COUNT 0815129 Lymph Auto 29.7 % 10/07/19 18 Unknown COMPLETE BLOOD COUNT 3452269 [place] Auto 8.3 % 8 Unknown COMPLETE BLOOD COUNT 1897057 RDW 14.0 % 8 Unknown COMPLETE BLOOD COUNT 2282493 Eos Auto 3.7 % 8 Unknown COMPLETE BLOOD COUNT 0190307 Baso Auto 0.3 % 8 Unknown COMPLETE BLOOD COUNT 8915848 Neutrophil Abs 4.29 10e9/L Unknown COMPLETE BLOOD COUNT 4082680 Lymphocyte Abs 2.20 10e9/L Unknown COMPLETE BLOOD COUNT 8930483 Monocyte Abs 0.61 10e9/L 06/2017 Unknown COMPLETE BLOOD COUNT 0569101 Eosinophil Abs 0.27 10e9/L Unknown COMPLETE BLOOD COUNT 9253938 RDW-SD 48.6 fL 8 Unknown COMPLETE BLOOD COUNT 1463202 Basophil Abs 0.02 10e9/L 06/2017 Unknown LIPID GROUP 04571 Cholesterol 216 mg/dL 10/06/2017 [facility]no wn LIP[facility] 14226 Triglyceride 335 mg/dL 10/06/2017 Unkn own LIPID GROUP 92326 HDL CHOLESTEROL 33 mg/dL 10/06/2017 U nknown LIPID GROUP 61576 Chol/HDL Ratio 6.55 ratio 10/06/2017 U nknown LIPID GROUP 16199 NON-HDL Chol 183 mg/dL 10/06/2017 Unkn own LIPID GROUP 65507 LDL Cholesterol 116 mg/dL 10/06/2017 U nknown COMPREHENSIVE METABOLIC 35845 AST 15 U/L 2017 Unknown COMPREHENSIVE METABOLIC 71933 ALT 15 U/L 2017 Unknown COMPREHENSIVE METABOLIC 17058 BUN 21 mg/dL 2017 Unknown COMPREHENSIVE METABOLIC 77425 ALBUMIN 4.1 g/dL 2017 Unknown COMPREHENSIVE METABOLIC 59847 CHLORIDE 107 mmol/L 10/06 Unknown COMPREHENSIVE METABOLIC 48187 Bili Total 0.6 mg/dL 10/06 Unknown COMPREHENSIVE METABOLIC 27474 ALK PHOS 68 U/L 2017 Unknown COMPREHENSIVE METABOLIC 87591 SODIUM 140 mmol/L 10/06 Unknown COMPREHENSIVE METABOLIC 02218 CREATININE 1.12 mg/dL 06/2017 Unknown COMPREHENSIVE METABOLIC 46175 CALCIUM 9.7 mg/dL 2017 Unknown COMPREHENSIVE METABOLIC 90820 POTASSIUM 4.6 mmol/L 10/06 Unknown COMPREHENSIVE METABOLIC 39888 Total Protein 6.6 g/dL Unknown COMPREHENSIVE METABOLIC 32474 Glucose 114 mg/dL 2017 Unknown COMPREHENSIVE METABOLIC 47772 Bicarbonate 26 mmol/L 06/2017 Unknown COMPREHENSIVE METABOLIC 67779 AGAP 7 mmol/L 2017 Unknown GLYCOSYLATED HEMOGLOBIN TEST 37348 Hgb A1c 45557-0 6.1 % 1 05/05/2016 Unknown GFR CALC 8810789 GFR Non Afr Amr >60 mL/min 03/05/2017 Un known GFR CALC 4775617 GFR Afr Amr >60 mL/min 03/05/2017 Unknow n MEAN GLUC 6713327 Calc Mean Gluc 128 mg/dL 03/05/2017 Unkn own COMPREHENSIVE METABOLIC 57637 AST 18 U/L 2016 Unknown COMPREHENSIVE METABOLIC 82837 ALT 20 U/L 2016 Unknown COMPREHENSIVE METABOLIC 11382 BUN 15 mg/dL 2016 Unknown COMPREHENSIVE METABOLIC 88999 ALBUMIN 4.3 g/dL 2016 Unknown COMPREHENSIVE METABOLIC 06883 CHLORIDE 105 mmol/L 03/05 Unknown COMPREHENSIVE METABOLIC 34732 Bili Total 0.5 mg/dL 03/05 Unknown COMPREHENSIVE METABOLIC 07076 ALK PHOS 57 U/L 2016 Unknown COMPREHENSIVE METABOLIC 35984 SODIUM 141 mmol/L 03/05 Unknown COMPREHENSIVE METABOLIC 21069 CREATININE 1.07 mg/dL 02/06 Unknown COMPREHENSIVE METABOLIC 98263 CALCIUM 9.3 mg/dL 2016 Unknown COMPREHENSIVE METABOLIC 29080 POTASSIUM 4.8 mmol/L 03/05 Unknown COMPREHENSIVE METABOLIC 03542 Total Protein 6.2 g/dL Unknown COMPREHENSIVE METABOLIC 64542 Glucose 118 mg/dL 2016 Unknown COMPREHENSIVE METABOLIC 71346 Bicarbonate 29 mmol/L 02/06 Unknown COMPREHENSIVE METABOLIC 67306 AGAP 7 mmol/L 2016 Unknown FREE T4 14556 T4 Free 1.38 ng/dL 03/05/2017 Unknown COMPLETE BLOOD COUNT 4759288 WBC 8.4 10e9/L 03/05/20 17 Unknown COMPLETE BLOOD COUNT 7408995 RBC 4.11 10e12/L 2016 Unknown COMPLETE BLOOD COUNT 4428111 HEMOGLOBIN 12.8 g/dL 03/05/20 17 Unknown COMPLETE BLOOD COUNT 5387207 HEMATOCRIT 40.1 % 03/05/20 17 Unknown COMPLETE BLOOD COUNT 4395373 MCV 97.6 fL 7 Unknown COMPLETE BLOOD COUNT 7097179 MCH 31.1 pg 7 Unknown COMPLETE BLOOD COUNT 5789977 MCHC 31.9 g/dL 7 Unknown COMPLETE BLOOD COUNT 8212164 PLATELET COUNT 184 10e9/L Unknown COMPLETE BLOOD COUNT 6702944 Mean Plt Volume 11.3 fL Unknown COMPLETE BLOOD COUNT 9668474 Neut Auto 62.5 % 7 Unknown COMPLETE BLOOD COUNT 1333533 Lymph Auto 26.4 % 03/05/20 17 Unknown COMPLETE BLOOD COUNT 0927049 [place] Auto 7.9 % 7 Unknown COMPLETE BLOOD COUNT 2718870 RDW 13.5 % 7 Unknown COMPLETE BLOOD COUNT 8109209 Eos Auto 3.0 % 7 Unknown COMPLETE BLOOD COUNT 9542326 Baso Auto 0.2 % 7 Unknown COMPLETE BLOOD COUNT 5512181 Neutrophil Abs 5.25 10e9/L Unknown COMPLETE BLOOD COUNT 8922365 Lymphocyte Abs 2.22 10e9/L Unknown COMPLETE BLOOD COUNT 6116295 Monocyte Abs 0.66 10e9/L 02/06 Unknown COMPLETE BLOOD COUNT 6289276 Eosinophil Abs 0.25 10e9/L Unknown COMPLETE BLOOD COUNT 1897364 RDW-SD 46.7 fL 7 Unknown COMPLETE BLOOD COUNT 1263564 Basophil Abs 0.02 10e9/L 02/06 Unknown THYROID STIMULATING HORMONE 35526 TSH 2.330 uIU/mL 03/05/2017 Unknown LIPID GROUP 87367 Cholesterol 135 mg/dL 03/05/2017 Unkno wn LIPID GROUP 14956 Triglyceride 297 mg/dL 03/05/2017 Unkn own LIPID GROUP 65844 HDL CHOLESTEROL 34 mg/dL 03/05/2017 U nknown LIPID GROUP 41240 Chol/HDL Ratio 3.97 ratio 03/05/2017 U nknown LIPID GROUP 69476 NON-HDL Chol 101 mg/dL 03/05/2017 Unkn own LIPID GROUP 89499 LDL Cholesterol 42 mg/dL 03/05/2017 U nknown GLYCOSYLATED HEMOGLOBIN TEST 46246 Hgb A1c 36774-9 6.5 % 1 05/07/2015 Unknown GFR CALC 5573552 GFR Non Afr Amr 55 mL/min 03/06/2016 Unk nown GFR CALC 3219073 GFR Afr Amr >60 mL/min 03/06/2016 Unknow n COMPLETE BLOOD COUNT 1219280 WBC 8.5 10e9/L 03/06/20 16 Unknown COMPLETE BLOOD COUNT 6796028 RBC 4.32 10e12/L 2015 Unknown COMPLETE BLOOD COUNT 3207232 HEMOGLOBIN 13.5 g/dL 03/06/20 16 Unknown COMPLETE BLOOD COUNT 9845079 HEMATOCRIT 41.3 % 03/06/20 16 Unknown COMPLETE BLOOD COUNT 4207908 MCV 95.6 fL 6 Unknown COMPLETE BLOOD COUNT 5449851 MCH 31.3 pg 6 Unknown COMPLETE BLOOD COUNT 0580958 MCHC 32.7 g/dL 6 Unknown COMPLETE BLOOD COUNT 6352998 PLATELET COUNT 191 10e9/L 04/2015 Unknown COMPLETE BLOOD COUNT 4073266 Mean Plt Volume 11.7 fL 04/2015 Unknown COMPLETE BLOOD COUNT 1677003 Neut Auto 64.2 % 6 Unknown COMPLETE BLOOD COUNT 0427256 Lymph Auto 25.9 % 03/06/20 16 Unknown COMPLETE BLOOD COUNT 0115681 [place] Auto 7.8 % 6 Unknown COMPLETE BLOOD COUNT 8608869 RDW 13.4 % 6 Unknown COMPLETE BLOOD COUNT 7602862 Eos Auto 2.0 % 6 Unknown COMPLETE BLOOD COUNT 6408339 Baso Auto 0.1 % 6 Unknown COMPLETE BLOOD COUNT 1667135 Neutrophil Abs 5.46 10e9/L Unknown COMPLETE BLOOD COUNT 5905113 Lymphocyte Abs 2.20 10e9/L Unknown COMPLETE BLOOD COUNT 6616413 Monocyte Abs 0.66 10e9/L 04/2015 Unknown COMPLETE BLOOD COUNT 0580795 Eosinophil Abs 0.17 10e9/L Unknown COMPLETE BLOOD COUNT 5840577 RDW-SD 45.0 fL 6 Unknown COMPLETE BLOOD COUNT 4040192 Basophil Abs 0.01 10e9/L 04/2015 Unknown FREE T4 46767 T4 Free 1.34 ng/dL 03/06/2016 Unknown MEAN GLUC 5282170 Calc Mean Gluc 140 mg/dL 03/06/2016 Unkn own COMPREHENSIVE METABOLIC 13134 AST 15 U/L 2015 Unknown COMPREHENSIVE METABOLIC 84131 ALT 18 U/L 2015 Unknown COMPREHENSIVE METABOLIC 56926 BUN 21 mg/dL 2015 Unknown COMPREHENSIVE METABOLIC 22059 ALBUMIN 4.3 g/dL 2015 Unknown COMPREHENSIVE METABOLIC 29262 CHLORIDE 103 mmol/L 03/06 Unknown COMPREHENSIVE METABOLIC 34744 Bili Total 0.4 mg/dL 03/06 Unknown COMPREHENSIVE METABOLIC 24220 ALK PHOS 68 U/L 2015 Unknown COMPREHENSIVE METABOLIC 11275 SODIUM 140 mmol/L 03/06 Unknown COMPREHENSIVE METABOLIC 13389 CREATININE 1.31 mg/dL 04/2015 Unknown COMPREHENSIVE METABOLIC 33804 CALCIUM 9.4 mg/dL 2015 Unknown COMPREHENSIVE METABOLIC 56544 POTASSIUM 4.8 mmol/L 03/06 Unknown COMPREHENSIVE METABOLIC 30684 Total Protein 6.6 g/dL Unknown COMPREHENSIVE METABOLIC 53878 Glucose 142 mg/dL 2015 Unknown COMPREHENSIVE METABOLIC 38597 Bicarbonate 29 mmol/L 04/2015 Unknown COMPREHENSIVE METABOLIC 33420 AGAP 8 mmol/L 2015 Unknown THYROID STIMULATING HORMONE 76195 TSH 2.288 uIU/mL 03/06/2016 Unknown LIPID GROUP 81625 Cholesterol 154 mg/dL 03/06/2016 Unkno wn LIPID GROUP 07808 Triglyceride 266 mg/dL 03/06/2016 Unkn own LIPID GROUP 27853 HDL CHOLESTEROL 38 mg/dL 03/06/2016 U nknown LIPID GROUP 49343 Chol/HDL Ratio 4.05 ratio 03/06/2016 U nknown LIPID GROUP 74689 NON-HDL Chol 116 mg/dL 03/06/2016 Unkn own LIPID GROUP 66923 LDL Cholesterol 63 mg/dL 03/06/2016 U nkno MEAN GLUC 6896498 Mean Glucose 128 mg/dL 08/31/2015 Unknow n COMPLETE BLOOD COUNT 9887756 WBC 8.4 10e9/L 08/31/19 16 Unknown COMPLETE BLOOD COUNT 5147030 RBC 4.12 10e12/L 2015 Unknown COMPLETE BLOOD COUNT 7902816 HEMOGLOBIN 12.8 g/dL 08/31/19 16 Unknown COMPLETE BLOOD COUNT 8238599 HEMATOCRIT 39.6 % 08/31/19 16 Unknown COMPLETE BLOOD COUNT 4028426 MCV 96.1 fL 6 Unknown COMPLETE BLOOD COUNT 1529816 MCH 31.1 pg 6 Unknown COMPLETE BLOOD COUNT 9324054 MCHC 32.3 g/dL 6 Unknown COMPLETE BLOOD COUNT 2190470 PLATELET COUNT 184 10e9/L Unknown COMPLETE BLOOD COUNT 1129620 Mean Plt Volume 12.0 fL Unknown COMPLETE BLOOD COUNT 9687330 Neut Auto 59.8 % 6 Unknown COMPLETE BLOOD COUNT 0924106 Lymph Auto 27.9 % 08/31/19 16 Unknown COMPLETE BLOOD COUNT 7967510 [place] Auto 9.1 % 6 Unknown COMPLETE BLOOD COUNT 1448457 RDW 13.6 % 6 Unknown COMPLETE BLOOD COUNT 8081218 Eos Auto 3.1 % 6 Unknown COMPLETE BLOOD COUNT 8474441 Baso Auto 0.1 % 6 Unknown COMPLETE BLOOD COUNT 8554188 Neutrophil Abs 5.02 10e9/L Unknown COMPLETE BLOOD COUNT 1647600 Lymphoctye Abs 2.34 10e9/L Unknown COMPLETE BLOOD COUNT 7801256 Monocyte Abs 0.76 10e9/L 08/05 Unknown COMPLETE BLOOD COUNT 6111301 Eosinophil Abs 0.26 10e9/L Unknown COMPLETE BLOOD COUNT 5932199 RDW-SD 46.3 fL 6 Unknown COMPLETE BLOOD COUNT 6466166 Basophil Abs 0.01 10e9/L 08/05 Unknown GLYCOSYLATED HEMOGLOBIN TEST 21270 Hgb A1c 20442-5 6.1 % 0 08/31/2015 Unknown GFR CALC 5373450 GFR Non Afr Amr >60 mL/min 08/31/2015 Un known GFR CALC 2891080 GFR Afr Amr >60 mL/min 08/31/2015 Unknow n FREE T4 95695 T4 Free 1.21 ng/dL 08/31/2015 Unknown THYROID STIMULATING HORMONE 41049 TSH 2.988 uIU/mL 08/31/2015 Unknown COMPREHENSIVE METABOLIC 74663 AST 16 U/L 2015 Unknown COMPREHENSIVE METABOLIC 07099 ALT 19 U/L 2015 Unknown COMPREHENSIVE METABOLIC 57076 BUN 17 mg/dL 2015 Unknown COMPREHENSIVE METABOLIC 87234 ALBUMIN 4.3 g/dL 2015 Unknown COMPREHENSIVE METABOLIC 67686 CHLORIDE 107 mmol/L 08/30 Unknown COMPREHENSIVE METABOLIC 65934 Bili Total 0.4 mg/dL 08/30 Unknown COMPREHENSIVE METABOLIC 35141 ALK PHOS 66 U/L 2015 Unknown COMPREHENSIVE METABOLIC 43999 SODIUM 140 mmol/L 08/30 Unknown COMPREHENSIVE METABOLIC 69341 CREATININE 1.07 mg/dL 08/05 Unknown COMPREHENSIVE METABOLIC 96431 CALCIUM 9.5 mg/dL 2015 Unknown COMPREHENSIVE METABOLIC 03307 POTASSIUM 4.5 mmol/L 08/30 Unknown COMPREHENSIVE METABOLIC 60400 Total Protein 6.7 g/dL Unknown COMPREHENSIVE METABOLIC 94842 Glucose 122 mg/dL 2015 Unknown COMPREHENSIVE METABOLIC 14522 Bicarbonate 26 mmol/L 08/05 Unknown COMPREHENSIVE METABOLIC 36106 AGAP 7 mmol/L 2015 Unknown LIPID GROUP 18286 Cholesterol 171 mg/dL 08/31/2015 Unkno wn LIPID GROUP 28365 Triglyceride 428 mg/dL 08/31/2015 Unkn own LIPID GROUP 82982 HDL CHOLESTEROL 35 mg/dL 08/31/2015 U nknown LIPID GROUP 69964 Chol/HDL Ratio 4.89 ratio 08/31/2015 U nknown LIPID GROUP 14127 NON-HDL Chol 136 mg/dL 08/31/2015 Unkn own LIPID GROUP 29015 LDL Cholesterol 50 mg/dL 08/31/2015 U nknown PSA EQUIMOLAR JERSON 74244 PSA Total 0.47 ng/mL 6 Unknown GFR CALC 6211477 GFR AA >60 ML/MIN 01/12/2015 Unknown GFR CALC 1082486 GFR NON-AA >60 ML/MIN 01/12/2015 Unknown COMPREHENSIVE METABOLIC 51070 AST 18 U/L 2014 Unknown COMPREHENSIVE METABOLIC 15122 ALT 19 IU/L 2014 Unknown COMPREHENSIVE METABOLIC 54510 BUN 19 MG/DL 2014 Unknown COMPREHENSIVE METABOLIC 85573 ALBUMIN 4.7 GM/DL 2014 Unknown COMPREHENSIVE METABOLIC 87214 CHLORIDE 104 MMOL/L 01/12 Unknown COMPREHENSIVE METABOLIC 14031 BILI TOT 0.8 MG/DL 2014 Unknown COMPREHENSIVE METABOLIC 91788 ALK PHOS 58 U/L 2014 Unknown COMPREHENSIVE METABOLIC 63165 SODIUM 139 MMOL/L 01/12 Unknown COMPREHENSIVE METABOLIC 38031 CREATININE 1.09 MG/DL 12/2014 Unknown COMPREHENSIVE METABOLIC 19671 CALCIUM 9.6 MG/DL 2014 Unknown COMPREHENSIVE METABOLIC 25599 POTASSIUM 4.4 MMOL/L 01/12 Unknown COMPREHENSIVE METABOLIC 09221 PROT TOT 6.7 GM/DL 2014 Unknown COMPREHENSIVE METABOLIC 14389 Glucose 109 MG/DL 2014 Unknown COMPREHENSIVE METABOLIC 35937 BICARB 27 MMOL/L 2014 Unknown COMPREHENSIVE METABOLIC 43411 ANION GAP 8 MEQ/L 2014 Unknown LIPID GROUP 35350 HDL TEST 36 MG/DL 01/12/2015 Unknown LIPID GROUP 85347 TRIG 220 MG/DL 01/12/2015 Unknown LIPID GROUP 92150 TEST LDL 58 MG/DL 01/12/2015 Unknown LIPID GROUP 60411 CHOL 138 MG/DL 01/12/2015 Unknown LIPID GROUP 35824 RCHOL/HDL 3.83 RATIO 01/12/2015 Unknow n LIPID GROUP 31595 NON-HDL CH 102 MG/DL 01/12/2015 Unknow n GLYCOSYLATED HEMOGLOBIN TEST 71415 A1C HPLC 41950-0 6.1 % 1 Unknown COMPLETE BLOOD COUNT 7199494 WBC 7.1 10e9/L 01/13/20 15 Unknown COMPLETE BLOOD COUNT 2581297 RBC 4.38 10e12/L 2014 Unknown COMPLETE BLOOD COUNT 5127892 HGB 13.7 g/dL 5 Unknown COMPLETE BLOOD COUNT 4731155 HCT DET 41.3 % 5 Unknown COMPLETE BLOOD COUNT 0947145 MCV 94.3 fL 5 Unknown COMPLETE BLOOD COUNT 5590234 MCH 31.3 pg 5 Unknown COMPLETE BLOOD COUNT 5130753 MCHC 33.2 g/dL 5 Unknown COMPLETE BLOOD COUNT 4298653 PLT 174 10e9/L 01/13/20 15 Unknown COMPLETE BLOOD COUNT 7029858 MPV 11.8 fL 5 Unknown COMPLETE BLOOD COUNT 6517897 SAMIR % 61.3 % 5 Unknown COMPLETE BLOOD COUNT 0721598 LY % 28.3 % 5 Unknown COMPLETE BLOOD COUNT 3926408 MON % 7.6 % 5 Unknown COMPLETE BLOOD COUNT 5515542 EOS % 2.7 % 5 Unknown COMPLETE BLOOD COUNT 7484792 BASO % 0.1 % 5 Unknown COMPLETE BLOOD COUNT 7841743 RDW 13.1 % 5 Unknown COMPLETE BLOOD COUNT 7733235 ABS SAMIR 4.35 10e9/L 015 Unknown COMPLETE BLOOD COUNT 6559135 ABS LYMPH 2.01 10e9/L 015 Unknown COMPLETE BLOOD COUNT 5791300 ABS MONO 0.54 10e9/L 015 Unknown COMPLETE BLOOD COUNT 3945244 ABS EOS 0.19 10e9/L 015 Unknown COMPLETE BLOOD COUNT 5773047 ABS BASO 0.01 10e9/L 015 Unknown COMPLETE BLOOD COUNT 9897313 RDW-SD 43.9 fL 5 Unknown GLYCOSYLATED HEMOGLOBIN TEST 56428 A1C HPLC 65485-6 6.1 % 0 08/15/2014 Unknown COMPLETE BLOOD COUNT 2503737 WBC 9.7 10e9/L 08/16/19 15 Unknown COMPLETE BLOOD COUNT 4419349 RBC 4.29 10e12/L 2014 Unknown COMPLETE BLOOD COUNT 1191417 HGB 13.3 g/dL 5 Unknown COMPLETE BLOOD COUNT 5574715 HCT DET 40.5 % 5 Unknown COMPLETE BLOOD COUNT 4795890 MCV 94.4 fL 5 Unknown COMPLETE BLOOD COUNT 2290642 MCH 31.0 pg 5 Unknown COMPLETE BLOOD COUNT 0893144 MCHC 32.8 g/dL 5 Unknown COMPLETE BLOOD COUNT [id number] PLT 227 10e9/L 08/16/19 15 Unknown COMPLETE BLOOD COUNT [id number] MPV 11.0 fL 5 Unknown COMPLETE BLOOD COUNT [id number] SAMIR % 66.4 % 5 Unknown COMPLETE BLOOD COUNT [id number] LY % 23.7 % 5 Unknown COMPLETE BLOOD COUNT [id number] MON % 8.1 % 5 Unknown COMPLETE BLOOD COUNT [id number] EOS % 1.6 % 5 Unknown COMPLETE BLOOD COUNT [id number] BASO % 0.2 % 5 Unknown COMPLETE BLOOD COUNT [id number] RDW 13.4 % 5 Unknown COMPLETE BLOOD COUNT [id number] ABS SAMIR 6.44 10e9/L 015 Unknown COMPLETE BLOOD COUNT [id number] ABS LYMPH 2.30 10e9/L 015 Unknown COMPLETE BLOOD COUNT [id number] ABS MONO 0.79 10e9/L 015 Unknown COMPLETE BLOOD COUNT [id number] ABS EOS 0.16 10e9/L 015 Unknown COMPLETE BLOOD COUNT [id number] ABS BASO 0.02 10e9/L 015 Unknown COMPLETE BLOOD COUNT [id number] RDW-SD 44.7 fL 5 Unknown COMPREHENSIVE METABOLIC 31097 AST 17 U/L 2014 Unknown COMPREHENSIVE METABOLIC 02960 ALT 23 IU/L 2014 Unknown COMPREHENSIVE METABOLIC 55893 BUN 16 MG/DL 2014 Unknown COMPREHENSIVE METABOLIC 33237 ALBUMIN 4.3 GM/DL 2014 Unknown COMPREHENSIVE METABOLIC 63054 CHLORIDE 107 MMOL/L 08/15 Unknown COMPREHENSIVE METABOLIC 12656 BILI TOT 0.4 MG/DL 2014 Unknown COMPREHENSIVE METABOLIC 95544 ALK PHOS 91 U/L 2014 Unknown COMPREHENSIVE METABOLIC 83787 SODIUM 139 MMOL/L 08/15 Unknown COMPREHENSIVE METABOLIC 13883 CREATININE 1.07 MG/DL 08/04 Unknown COMPREHENSIVE METABOLIC 97105 CALCIUM 9.6 MG/DL 2014 Unknown COMPREHENSIVE METABOLIC 24224 POTASSIUM 4.6 MMOL/L 08/15 Unknown COMPREHENSIVE METABOLIC 45677 PROT TOT 6.7 GM/DL 2014 Unknown COMPREHENSIVE METABOLIC 17806 Glucose 111 MG/DL 2014 Unknown COMPREHENSIVE METABOLIC 63895 BICARB 27 MMOL/L 2014 Unknown COMPREHENSIVE METABOLIC 44607 ANION GAP 5 MEQ/L 2014 Unknown GFR CALC [id number] GFR AA >60 ML/MIN 08/15/2014 Unknown GFR CALC [id number] GFR NON-AA >60 ML/MIN 08/15/2014 Unknown THYROID STIMULATING HORMONE 40906 TSH 1.598 uIU/ML 08/15/2014 Unknown LIPID GROUP 31767 HDL TEST 33 MG/DL 08/15/2014 Unknown LIPID GROUP 70621 TRIG 187 MG/DL 08/15/2014 Unknown LIPID GROUP 57756 TEST LDL 58 MG/DL 08/15/2014 Unknown LIPID GROUP 16296 CHOL 128 MG/DL 08/15/2014 Unknown LIPID GROUP 86258 RCHOL/HDL 3.88 RATIO 08/15/2014 Unknow n LIPID GROUP 10045 NON-HDL CH 95 MG/DL 08/15/2014 Unknow n PSA EQUIMOLAR JERSON 46827 PSA EQ 0.70 NG/ML 5 Unknown FREE T4 75656 FREE T4 1.32 NG/DL 08/15/2014 Unknown GFR CALC 4890279 GFR AA >60 ML/MIN 12/14/2013 Unknown GFR CALC 7940732 GFR NON-AA 58.0L ML/MIN 12/14/2013 Unkno wn COMPLETE BLOOD COUNT [id number] WBC 8.7 10e9/L 12/15/19 14 Unknown COMPLETE BLOOD COUNT [id number] RBC 4.32 10e12/L 2013 Unknown COMPLETE BLOOD COUNT 2912986 HGB 13.5 g/dL 4 Unknown COMPLETE BLOOD COUNT [id number] HCT DET 40.6 % 4 Unknown COMPLETE BLOOD COUNT 6707304 MCV 94.0 fL 4 Unknown COMPLETE BLOOD COUNT 6675084 MCH 31.3 pg 4 Unknown COMPLETE BLOOD COUNT 9544686 MCHC 33.3 g/dL 4 Unknown COMPLETE BLOOD COUNT 5963165 PLT 205 10e9/L 12/15/19 14 Unknown COMPLETE BLOOD COUNT [id number] MPV 11.7 fL 4 Unknown COMPLETE BLOOD COUNT [id number] SAMIR % 62.5 % 4 Unknown COMPLETE BLOOD COUNT 7698984 LY % 26.9 % 4 Unknown COMPLETE BLOOD COUNT [id number] MON % 8.8 % 4 Unknown COMPLETE BLOOD COUNT [id number] EOS % 1.7 % 4 Unknown COMPLETE BLOOD COUNT 6277517 BASO % 0.1 % 4 Unknown COMPLETE BLOOD COUNT 3127619 RDW 13.4 % 4 Unknown COMPLETE BLOOD COUNT [id number] ABS SAMIR 5.44 10e9/L 014 Unknown COMPLETE BLOOD COUNT [id number] ABS LYMPH 2.34 10e9/L 014 Unknown COMPLETE BLOOD COUNT [id number] ABS MONO 0.77 10e9/L 014 Unknown COMPLETE BLOOD COUNT [id number] ABS EOS 0.15 10e9/L 014 Unknown COMPLETE BLOOD COUNT 7557317 ABS BASO 0.01 10e9/L 014 Unknown COMPLETE BLOOD COUNT 8204027 RDW-SD 44.7 fL 4 Unknown COMPREHENSIVE METABOLIC 80480 AST 14 U/L 2013 Unknown COMPREHENSIVE METABOLIC 32296 ALT 12 IU/L 2013 Unknown COMPREHENSIVE METABOLIC 91268 BUN 24 MG/DL 2013 Unknown COMPREHENSIVE METABOLIC 71719 ALBUMIN 4.5 GM/DL 2013 Unknown COMPREHENSIVE METABOLIC 13536 CHLORIDE 104 MMOL/L 12/14 Unknown COMPREHENSIVE METABOLIC 46766 BILI TOT 0.6 MG/DL 2013 Unknown COMPREHENSIVE METABOLIC 67385 ALK PHOS 82 U/L 2013 Unknown COMPREHENSIVE METABOLIC 63147 SODIUM 135 MMOL/L 12/14 Unknown COMPREHENSIVE METABOLIC 43840 CREATININE 1.25 MG/DL 12/05 Unknown COMPREHENSIVE METABOLIC 90649 CALCIUM 9.8 MG/DL 2013 Unknown COMPREHENSIVE METABOLIC 72906 POTASSIUM 4.7 MMOL/L 12/14 Unknown COMPREHENSIVE METABOLIC 19263 PROT TOT 6.7 GM/DL 2013 Unknown COMPREHENSIVE METABOLIC 67863 Glucose 126 MG/DL 2013 Unknown COMPREHENSIVE METABOLIC 76523 BICARB 27 MMOL/L 2013 Unknown COMPREHENSIVE METABOLIC 20839 ANION GAP 4 MEQ/L 2013 Unknown THYROID STIMULATING HORMONE 74129 TSH 3.281 uIU/ML 12/14/2013 Unknown FREE T4 93331 FREE T4 1.28 NG/DL 12/14/2013 Unknown LIPID GROUP 81067 HDL TEST 36 MG/DL 12/14/2013 Unknown LIPID GROUP 20134 TRIG 253 MG/DL 12/14/2013 Unknown LIPID GROUP 80506 TEST LDL 56 MG/DL 12/14/2013 Unknown LIPID GROUP 45600 CHOL 143 MG/DL 12/14/2013 Unknown LIPID GROUP 08127 RCHOL/HDL 3.97 RATIO 12/14/2013 Unknow n LIPID GROUP 03313 NON-HDL CH 107 MG/DL 12/14/2013 Unknow n GLYCOSYLATED HEMOGLOBIN TEST 00219 A1C HPLC 20905-7 6.1 % 0 12/14/2013 Unknown GLYCOSYLATED HEMOGLOBIN TEST 19263 A1C HPLC 89901-8 6.0 % 0 06/08/2013 Unknown LIPID GROUP 55239 HDL TEST 39 MG/DL 06/08/2013 Unknown LIPID GROUP 19400 TRIG 166 MG/DL 06/08/2013 Unknown LIPID GROUP 99371 TEST LDL 86 MG/DL 06/08/2013 Unknown LIPID GROUP 74342 CHOL 158 MG/DL 06/08/2013 Unknown LIPID GROUP 10325 RCHOL/HDL 4.05 RATIO 06/08/2013 Unknow n COMPREHENSIVE METABOLIC 74473 AST 17 U/L 2013 Unknown COMPREHENSIVE METABOLIC 86936 ALT 25 IU/L 2013 Unknown COMPREHENSIVE METABOLIC 88041 BUN 18 MG/DL 2013 Unknown COMPREHENSIVE METABOLIC 41962 ALBUMIN 4.5 GM/DL 2013 Unknown COMPREHENSIVE METABOLIC 17333 CHLORIDE 103 MMOL/L 06/08 Unknown COMPREHENSIVE METABOLIC 11383 BILI TOT 0.4 MG/DL 2013 Unknown COMPREHENSIVE METABOLIC 97013 ALK PHOS 72 U/L 2013 Unknown COMPREHENSIVE METABOLIC 12701 SODIUM 137 MMOL/L 06/08 Unknown COMPREHENSIVE METABOLIC 55013 CREATININE 1.07 MG/DL 08/2013 Unknown COMPREHENSIVE METABOLIC 19285 CALCIUM 9.7 MG/DL 2013 Unknown COMPREHENSIVE METABOLIC 69318 POTASSIUM 4.7 MMOL/L 06/08 Unknown COMPREHENSIVE METABOLIC 72584 PROT TOT 6.6 GM/DL 2013 Unknown COMPREHENSIVE METABOLIC 88915 Glucose 130 MG/DL 2013 Unknown COMPREHENSIVE METABOLIC 19763 BICARB 25 MMOL/L 2013 Unknown COMPREHENSIVE METABOLIC 50947 ANION GAP 9 MEQ/L 2013 Unknown FREE T4 58025 FREE T4 1.29 NG/DL 06/08/2013 Unknown THYROID STIMULATING HORMONE 35578 TSH 2.445 uIU/ML 06/08/2013 Unknown GFR CALC 0349012 GFR AA >60 ML/MIN 06/08/2013 Unknown GFR CALC 9916411 GFR NON-AA >60 ML/MIN 06/08/2013 Unknown COMPLETE BLOOD COUNT 7373561 WBC 8.2 10e9/L 06/09/19 14 Unknown COMPLETE BLOOD COUNT 3225859 RBC 4.63 10e12/L 2013 Unknown COMPLETE BLOOD COUNT 1843299 HGB 14.1 g/dL 4 Unknown COMPLETE BLOOD COUNT 5845396 HCT DET 42.6 % 4 Unknown COMPLETE BLOOD COUNT 8873418 MCV 92.0 fL 4 Unknown COMPLETE BLOOD COUNT 2090188 MCH 30.5 pg 4 Unknown COMPLETE BLOOD COUNT 8673373 MCHC 33.1 g/dL 4 Unknown COMPLETE BLOOD COUNT 9927511 PLT 222 10e9/L 06/09/19 14 Unknown COMPLETE BLOOD COUNT 0596060 MPV 10.8 fL 4 Unknown COMPLETE BLOOD COUNT 0317383 SAMIR % 60.8 % 4 Unknown COMPLETE BLOOD COUNT 7798589 LY % 29.2 % 4 Unknown COMPLETE BLOOD COUNT 6741270 MON % 7.6 % 4 Unknown COMPLETE BLOOD COUNT 9222001 EOS % 2.3 % 4 Unknown COMPLETE BLOOD COUNT 6749677 BASO % 0.1 % 4 Unknown COMPLETE BLOOD COUNT 4607620 RDW 13.7 % 4 Unknown COMPLETE BLOOD COUNT [id number] ABS SAMIR 4.99 10e9/L 014 Unknown COMPLETE BLOOD COUNT [id number] ABS LYMPH 2.39 10e9/L 014 Unknown COMPLETE BLOOD COUNT [id number] ABS MONO 0.62 10e9/L 014 Unknown COMPLETE BLOOD COUNT 3124842 ABS EOS 0.19 10e9/L 014 Unknown COMPLETE BLOOD COUNT 6626506 ABS BASO 0.01 10e9/L 014 Unknown COMPLETE BLOOD COUNT 4019340 RDW-SD 45.2 fL 4 Unknown LIPID GROUP 81468 HDL TEST 40 MG/DL 11/11/2012 Unknown LIPID GROUP 36282 TRIG 153 MG/DL 11/11/2012 Unknown LIPID GROUP 59292 TEST LDL 71 MG/DL 11/11/2012 Unknown LIPID GROUP 58443 CHOL 142 MG/DL 11/11/2012 Unknown LIPID GROUP 83349 RCHOL/HDL 3.55 RATIO 11/11/2012 Unknow n GFR CALC 6120802 GFR AA >60 ML/MIN 11/11/2012 Unknown GFR CALC 9297230 GFR NON-AA 57.0L ML/MIN 11/11/2012 Unkno wn HEMOGLOBIN A1C (GLYCOSYLATED) 8462714 A1C HPLC 96541-9 5.9 % 11/11/2012 Unknown THYROID STIMULATING HORMONE 15185 TSH 2.439 uIU/ML 11/11/2012 Unknown COMPLETE BLOOD COUNT 1811554 WBC 8.5 10e9/L 11/12/19 13 Unknown COMPLETE BLOOD COUNT 6271136 RBC 4.42 10e12/L 2012 Unknown COMPLETE BLOOD COUNT 5521695 HGB 13.7 g/dL 3 Unknown COMPLETE BLOOD COUNT 8634859 HCT DET 41.3 % 3 Unknown COMPLETE BLOOD COUNT 6138050 MCV 93.4 fL 3 Unknown COMPLETE BLOOD COUNT 3278949 MCH 31.0 pg 3 Unknown COMPLETE BLOOD COUNT 2134945 MCHC 33.2 g/dL 3 Unknown COMPLETE BLOOD COUNT 3083028 PLT 220 10e9/L 11/12/19 13 Unknown COMPLETE BLOOD COUNT 4701487 MPV 10.8 fL 3 Unknown COMPLETE BLOOD COUNT 3124094 SAMIR % 60.4 % 3 Unknown COMPLETE BLOOD COUNT 2921462 LY % 28.7 % 3 Unknown COMPLETE BLOOD COUNT 3823836 MON % 8.0 % 3 Unknown COMPLETE BLOOD COUNT 3958452 EOS % 2.8 % 3 Unknown COMPLETE BLOOD COUNT 9315571 BASO % 0.1 % 3 Unknown COMPLETE BLOOD COUNT 3980748 RDW 13.7 % 3 Unknown COMPLETE BLOOD COUNT 1627546 ABS SAMIR 5.13 10e9/L 013 Unknown COMPLETE BLOOD COUNT 2883881 ABS LYMPH 2.44 10e9/L 013 Unknown COMPLETE BLOOD COUNT 6675753 ABS MONO 0.68 10e9/L 013 Unknown COMPLETE BLOOD COUNT [id number] ABS EOS 0.24 10e9/L 013 Unknown COMPLETE BLOOD COUNT 4816854 ABS BASO 0.01 10e9/L 013 Unknown COMPLETE BLOOD COUNT 4692034 RDW-SD 45.6 fL 3 Unknown COMPREHENSIVE METABOLIC 61700 AST 19 U/L 2012 Unknown COMPREHENSIVE METABOLIC 00840 ALT 28 IU/L 2012 Unknown COMPREHENSIVE METABOLIC 36164 BUN 31 MG/DL 2012 Unknown COMPREHENSIVE METABOLIC 15646 ALBUMIN 4.7 GM/DL 2012 Unknown COMPREHENSIVE METABOLIC 57057 CHLORIDE 106 MMOL/L 11/11 Unknown COMPREHENSIVE METABOLIC 44483 BILI TOT 0.5 MG/DL 2012 Unknown COMPREHENSIVE METABOLIC 41122 ALK PHOS 64 U/L 2012 Unknown COMPREHENSIVE METABOLIC 82835 SODIUM 136 MMOL/L 11/11 Unknown COMPREHENSIVE METABOLIC 49351 CREATININE 1.27 MG/DL 11/2012 Unknown COMPREHENSIVE METABOLIC 86173 CALCIUM 9.4 MG/DL 2012 Unknown COMPREHENSIVE METABOLIC 41885 POTASSIUM 4.9 MMOL/L 11/11 Unknown COMPREHENSIVE METABOLIC 09542 PROT TOT 6.7 GM/DL 2012 Unknown COMPREHENSIVE METABOLIC 04192 Glucose 108 MG/DL 2012 Unknown COMPREHENSIVE METABOLIC 15692 BICARB 21 MMOL/L 2012 Unknown COMPREHENSIVE METABOLIC 95960 ANION GAP 9 MEQ/L 2012 Unknown THYROID STIMULATING HORMONE 04940 TSH 2.572 uIU/ML 05/04/2012 Unknown COMPLETE BLOOD COUNT [id number] WBC 9.3 10e9/L 05/04/19 13 Unknown COMPLETE BLOOD COUNT [id number] RBC 4.43 10e12/L 2012 Unknown COMPLETE BLOOD COUNT 1397034 HGB 14.2 g/dL 3 Unknown COMPLETE BLOOD COUNT [id number] HCT DET 41.1 % 3 Unknown COMPLETE BLOOD COUNT 9620240 MCV 92.8 fL 3 Unknown COMPLETE BLOOD COUNT 4532525 MCH 32.1 pg 3 Unknown COMPLETE BLOOD COUNT 1223603 MCHC 34.5 g/dL 3 Unknown COMPLETE BLOOD COUNT 4552561 PLT 193 10e9/L 05/04/19 13 Unknown COMPLETE BLOOD COUNT 2843650 MPV 10.8 fL 3 Unknown COMPLETE BLOOD COUNT 9061946 SAMIR % 63.0 % 3 Unknown COMPLETE BLOOD COUNT [id number] LY % 25.3 % 3 Unknown COMPLETE BLOOD COUNT 9775069 MON % 9.1 % 3 Unknown COMPLETE BLOOD COUNT 3748925 EOS % 2.5 % 3 Unknown COMPLETE BLOOD COUNT 4331996 BASO % 0.1 % 3 Unknown COMPLETE BLOOD COUNT [id number] RDW 12.6 % 3 Unknown COMPLETE BLOOD COUNT 6526489 ABS SAMIR 5.86 10e9/L 013 Unknown COMPLETE BLOOD COUNT [id number] ABS LYMPH 2.35 10e9/L 013 Unknown COMPLETE BLOOD COUNT 3728371 ABS MONO 0.85 10e9/L 013 Unknown COMPLETE BLOOD COUNT [id number] ABS EOS 0.23 10e9/L 013 Unknown COMPLETE BLOOD COUNT 5087885 ABS BASO 0.01 10e9/L 013 Unknown COMPLETE BLOOD COUNT 0890514 RDW-SD 41.2 fL 3 Unknown LIPID GROUP 86680 HDL TEST 35 MG/DL 05/04/2012 Unknown LIPID GROUP 39062 TRIG 236 MG/DL 05/04/2012 Unknown LIPID GROUP 55386 TEST LDL 64 MG/DL 05/04/2012 Unknown LIPID GROUP 40693 CHOL 146 MG/DL 05/04/2012 Unknown LIPID GROUP 12765 RCHOL/HDL 4.17 RATIO 05/04/2012 Unknow n COMPREHENSIVE METABOLIC 85833 AST 23 U/L 2012 Unknown COMPREHENSIVE METABOLIC 57654 ALT 33 IU/L 2012 Unknown COMPREHENSIVE METABOLIC 59633 BUN 16 MG/DL 2012 Unknown COMPREHENSIVE METABOLIC 78976 ALBUMIN 4.8 GM/DL 2012 Unknown COMPREHENSIVE METABOLIC 24202 CHLORIDE 104 MMOL/L 05/04 Unknown COMPREHENSIVE METABOLIC 90566 BILI TOT 0.5 MG/DL 2012 Unknown COMPREHENSIVE METABOLIC 57109 ALK PHOS 70 U/L 2012 Unknown COMPREHENSIVE METABOLIC 46246 SODIUM 138 MMOL/L 05/04 Unknown COMPREHENSIVE METABOLIC 05387 CREATININE 1.08 MG/DL 04/07 Unknown COMPREHENSIVE METABOLIC 51805 CALCIUM 9.7 MG/DL 2012 Unknown COMPREHENSIVE METABOLIC 04901 POTASSIUM 4.4 MMOL/L 05/04 Unknown COMPREHENSIVE METABOLIC 82460 PROT TOT 6.8 GM/DL 2012 Unknown COMPREHENSIVE METABOLIC 83602 Glucose 114 MG/DL 2012 Unknown COMPREHENSIVE METABOLIC 52787 BICARB 27 MMOL/L 2012 Unknown COMPREHENSIVE METABOLIC 79589 ANION GAP 7 MEQ/L 2012 Unknown FREE T4 73114 FREE T4 1.11 NG/DL 05/04/2012 Unknown GFR CALC 8518691 GFR AA >60 ML/MIN 05/04/2012 Unknown GFR CALC 8189898 GFR NON-AA >60 ML/MIN 05/04/2012 Unknown GLYCOSYLATED HEMOGLOBIN TEST 84030 A1C HPLC 34370-0 5.8 % 0 10/29/2011 Unknown COMPREHENSIVE METABOLIC 22474 AST 17 U/L 2011 Unknown COMPREHENSIVE METABOLIC 72611 ALT 21 IU/L 2011 Unknown COMPREHENSIVE METABOLIC 80135 BUN 17 MG/DL 2011 Unknown COMPREHENSIVE METABOLIC 70397 ALBUMIN 4.8 GM/DL 2011 Unknown COMPREHENSIVE METABOLIC 81256 CHLORIDE 106 MMOL/L 10/28 Unknown COMPREHENSIVE METABOLIC 56990 BILI TOT 0.6 MG/DL 2011 Unknown COMPREHENSIVE METABOLIC 95274 ALK PHOS 57 U/L 2011 Unknown COMPREHENSIVE METABOLIC 12586 SODIUM 139 MMOL/L 10/28 Unknown COMPREHENSIVE METABOLIC 52606 CREATININE 1.08 MG/DL 10/05 Unknown COMPREHENSIVE METABOLIC 30671 CALCIUM 9.6 MG/DL 2011 Unknown COMPREHENSIVE METABOLIC 14425 POTASSIUM 4.4 MMOL/L 10/28 Unknown COMPREHENSIVE METABOLIC 33062 PROT TOT 6.9 GM/DL 2011 Unknown COMPREHENSIVE METABOLIC 78767 Glucose 104 MG/DL 2011 Unknown COMPREHENSIVE METABOLIC 53205 BICARB 25 MMOL/L 2011 Unknown COMPREHENSIVE METABOLIC 33415 ANION GAP 8 MEQ/L 2011 Unknown LIPID GROUP 85940 HDL TEST 39 MG/DL 10/29/2011 Unknown LIPID GROUP 58678 TRIG 176 MG/DL 10/29/2011 Unknown LIPID GROUP 14024 TEST LDL 70 MG/DL 10/29/2011 Unknown LIPID GROUP 21940 CHOL 144 MG/DL 10/29/2011 Unknown LIPID GROUP 61555 RCHOL/HDL 3.69 RATIO 10/29/2011 Unknow n GFR CALC 6929580 GFR AA >60 ML/MIN 10/29/2011 Unknown GFR CALC 2169892 GFR NON-AA >60 ML/MIN 10/29/2011 Unknown GFR CALC 3711690 GFR AA >60 ML/MIN 03/14/2011 Unknown GFR CALC 1233013 GFR NON-AA >60 ML/MIN 03/14/2011 Unknown GLYCOSYLATED HEMOGLOBIN TEST 98797 A1C HPLC 35610-6 5.7 % 1 05/15/2010 Unknown COMPREHENSIVE METABOLIC 80680 AST 18 U/L 2010 Unknown COMPREHENSIVE METABOLIC 90427 ALT 25 IU/L 2010 Unknown COMPREHENSIVE METABOLIC 43017 BUN 15 MG/DL 2010 Unknown COMPREHENSIVE METABOLIC 05892 ALBUMIN 4.6 GM/DL 2010 Unknown COMPREHENSIVE METABOLIC 07167 CHLORIDE 107 MMOL/L 03/14 Unknown COMPREHENSIVE METABOLIC 15206 BILI TOT 0.6 MG/DL 2010 Unknown COMPREHENSIVE METABOLIC 09073 ALK PHOS 54 U/L 2010 Unknown COMPREHENSIVE METABOLIC 50860 SODIUM 140 MMOL/L 03/14 Unknown COMPREHENSIVE METABOLIC 82889 CREATININE 1.02 MG/DL 12/2010 Unknown COMPREHENSIVE METABOLIC 40364 CALCIUM 9.4 MG/DL 2010 Unknown COMPREHENSIVE METABOLIC 89130 POTASSIUM 4.6 MMOL/L 03/14 Unknown COMPREHENSIVE METABOLIC 04009 PROT TOT 7.0 GM/DL 2010 Unknown COMPREHENSIVE METABOLIC 52223 Glucose 107 MG/DL 2010 Unknown COMPREHENSIVE METABOLIC 59208 BICARB 28 MMOL/L 2010 Unknown COMPREHENSIVE METABOLIC 35386 ANION GAP 5 MEQ/L 2010 Unknown LIPID GROUP 75589 HDL TEST 39 MG/DL 03/14/2011 Unknown LIPID GROUP 42569 TRIG 157 MG/DL 03/14/2011 Unknown LIPID GROUP 89939 TEST LDL 66 MG/DL 03/14/2011 Unknown LIPID GROUP 63998 CHOL 136 MG/DL 03/14/2011 Unknown LIPID GROUP 29886 RCHOL/HDL 3.49 RATIO 03/14/2011 Unknow n GFR CALC 5963022 GFR AA >60 ML/MIN 11/11/2010 Unknown GFR CALC 6538217 GFR NON-AA >60 ML/MIN 11/11/2010 Unknown LIPID GROUP 18155 HDL TEST 39 MG/DL 11/11/2010 Unknown LIPID GROUP 60928 TRIG 212 MG/DL 11/11/2010 Unknown LIPID GROUP 02812 TEST LDL 67 MG/DL 11/11/2010 Unknown LIPID GROUP 65847 CHOL 148 MG/DL 11/11/2010 Unknown LIPID GROUP 57672 RCHOL/HDL 3.79 RATIO 11/11/2010 Unknow n COMPREHENSIVE METABOLIC 98411 AST 17 U/L 2010 Unknown COMPREHENSIVE METABOLIC 09880 ALT 21 IU/L 2010 Unknown COMPREHENSIVE METABOLIC 00656 BUN 16 MG/DL 2010 Unknown COMPREHENSIVE METABOLIC 29092 ALBUMIN 4.6 GM/DL 2010 Unknown COMPREHENSIVE METABOLIC 65102 CHLORIDE 106 MMOL/L 11/11 Unknown COMPREHENSIVE METABOLIC 22605 BILI TOT 0.5 MG/DL 2010 Unknown COMPREHENSIVE METABOLIC 58406 ALK PHOS 61 U/L 2010 Unknown COMPREHENSIVE METABOLIC 34640 SODIUM 139 MMOL/L 11/11 Unknown COMPREHENSIVE METABOLIC 83118 CREATININE 1.00 MG/DL 11/2010 Unknown COMPREHENSIVE METABOLIC 82821 CALCIUM 9.5 MG/DL 2010 Unknown COMPREHENSIVE METABOLIC 22972 POTASSIUM 4.5 MMOL/L 11/11 Unknown COMPREHENSIVE METABOLIC 95026 PROT TOT 6.9 GM/DL 2010 Unknown COMPREHENSIVE METABOLIC 12285 Glucose 111 MG/DL 2010 Unknown COMPREHENSIVE METABOLIC 75368 BICARB 26 MMOL/L 2010 Unknown COMPREHENSIVE METABOLIC 56111 ANION GAP 7 MEQ/L 2010 Unknown HEMOGLOBIN A1C (GLYCOSYLATED) 50145 A1C [facility] 16791-4 5.6 % 07/24/2010 Unknown GFR CALC 3070679 GFR AA >60 ML/MIN 07/23/2010 Unknown GFR CALC 5529359 GFR NON-AA >60 ML/MIN 07/23/2010 Unknown COMPREHENSIVE METABOLIC 82726 AST 19 U/L 2010 Unknown COMPREHENSIVE METABOLIC 23008 ALT 33 IU/L 2010 Unknown COMPREHENSIVE METABOLIC 07856 BUN 14 MG/DL 2010 Unknown COMPREHENSIVE METABOLIC 56775 ALBUMIN 4.7 GM/DL 2010 Unknown COMPREHENSIVE METABOLIC 58115 CHLORIDE 107 MMOL/L 07/23 Unknown COMPREHENSIVE METABOLIC 28573 BILI TOT 0.4 MG/DL 2010 Unknown COMPREHENSIVE METABOLIC 97772 ALK PHOS 80 U/L 2010 Unknown COMPREHENSIVE METABOLIC 95956 SODIUM 141 MMOL/L 07/23 Unknown COMPREHENSIVE METABOLIC 61144 CREATININE 0.97 MG/DL 07/05 Unknown COMPREHENSIVE METABOLIC 39420 CALCIUM 9.5 MG/DL 2010 Unknown COMPREHENSIVE METABOLIC 41809 POTASSIUM 4.1 MMOL/L 07/23 Unknown COMPREHENSIVE METABOLIC 11857 PROT TOT 6.8 GM/DL 2010 Unknown COMPREHENSIVE METABOLIC 81899 Glucose 120 MG/DL 2010 Unknown COMPREHENSIVE METABOLIC 63613 BICARB 26 MMOL/L 2010 Unknown COMPREHENSIVE METABOLIC 12992 ANION GAP 8 MEQ/L 2010 Unknown LIPID GROUP 25523 HDL TEST 41 MG/DL 07/23/2010 Unknown LIPID GROUP 63419 TRIG 175 MG/DL 07/23/2010 Unknown LIPID GROUP 99171 TEST LDL 72 MG/DL 07/23/2010 Unknown LIPID GROUP 79445 CHOL 148 MG/DL 07/23/2010 Unknown LIPID GROUP 79060 RCHOL/HDL 3.61 RATIO 07/23/2010 Unknow n PSA FREE AND TOTAL 17402|23424 % FREE PSA FOOTNOTE % 011 Unknown PSA FREE AND TOTAL 48264|39748 XPSA TOTAL 0.83 NG/ML 011 Unknown PSA FREE AND TOTAL 23604|09112 XPSA FREE 0.13 NG/ML 04/26/19 11 Unknown VITAMIN D TOTAL (25 HYDROXY) 01696 VIT D TOTL 26 NG/ML 04/22/2010 Unknown TESTOSTERONE TOTAL 28719 TESTOS TO 387 NG/DL 04/19/2010 Unknown GFR CALC 4179759 GFR AA >60 ML/MIN 04/19/2010 Unknown GFR CALC 9502244 GFR NON-AA >60 ML/MIN 04/19/2010 Unknown COMPLETE BLOOD COUNT 30899 WBC 7.0 10e9/L 04/19/19 11 Unknown COMPLETE BLOOD COUNT 97295 RBC 5.07 10e12/L 2010 Unknown COMPLETE BLOOD COUNT 87123 HGB 15.6 g/dL 1 Unknown COMPLETE BLOOD COUNT 02392 HCT DET 46.2 % 1 Unknown COMPLETE BLOOD COUNT 00677 MCV 91.1 fL 1 Unknown COMPLETE BLOOD COUNT 96240 MCH 30.8 pg 1 Unknown COMPLETE BLOOD COUNT 65925 MCHC 33.8 g/dL 1 Unknown COMPLETE BLOOD COUNT 40843 PLT 205 10e9/L 04/19/19 11 Unknown COMPLETE BLOOD COUNT 85579 MPV 11.1 fL 1 Unknown COMPLETE BLOOD COUNT 40884 SAMIR % 62.4 % 1 Unknown COMPLETE BLOOD COUNT 76845 LY % 28.5 % 1 Unknown COMPLETE BLOOD COUNT 37079 MON % 6.9 % 1 Unknown COMPLETE BLOOD COUNT 65733 EOS % 2.1 % 1 Unknown COMPLETE BLOOD COUNT 93026 BASO % 0.1 % 1 Unknown COMPLETE BLOOD COUNT 19913 RDW 13.4 % 1 Unknown COMPLETE BLOOD COUNT 11253 ABS SAMIR 4.37 10e9/L 011 Unknown COMPLETE BLOOD COUNT 67925 ABS LYMPH 2.00 10e9/L 011 Unknown COMPLETE BLOOD COUNT 64340 ABS MONO 0.48 10e9/L 011 Unknown COMPLETE BLOOD COUNT 49644 ABS EOS 0.15 10e9/L 011 Unknown COMPLETE BLOOD COUNT 27126 ABS BASO 0.01 10e9/L 011 Unknown COMPLETE BLOOD COUNT 81930 RDW-SD 43.8 fL 1 Unknown LIPID GROUP 23978 HDL TEST 39 MG/DL 04/19/2010 Unknown LIPID GROUP 43239 TRIG 244 MG/DL 04/19/2010 Unknown LIPID GROUP 14942 TEST LDL 168 MG/DL 04/19/2010 Unknown LIPID GROUP 54588 CHOL 256 MG/DL 04/19/2010 Unknown LIPID GROUP 74178 RCHOL/HDL 6.56 RATIO 04/19/2010 Unknow n COMPREHENSIVE METABOLIC 09864 AST 28 U/L 2010 Unknown COMPREHENSIVE METABOLIC 65849 ALT 46 IU/L 2010 Unknown COMPREHENSIVE METABOLIC 36250 BUN 14 MG/DL 2010 Unknown COMPREHENSIVE METABOLIC 83529 ALBUMIN 4.9 GM/DL 2010 Unknown COMPREHENSIVE METABOLIC 35457 CHLORIDE 104 MMOL/L 04/19 Unknown COMPREHENSIVE METABOLIC 16446 BILI TOT 0.8 MG/DL 2010 Unknown COMPREHENSIVE METABOLIC 94699 ALK PHOS 71 U/L 2010 Unknown COMPREHENSIVE METABOLIC 05320 SODIUM 139 MMOL/L 04/19 Unknown COMPREHENSIVE METABOLIC 94049 CREATININE 1.06 MG/DL 04/06 Unknown COMPREHENSIVE METABOLIC 39943 CALCIUM 9.9 MG/DL 2010 Unknown COMPREHENSIVE METABOLIC 25512 POTASSIUM 4.3 MMOL/L 04/19 Unknown COMPREHENSIVE METABOLIC 25285 PROT TOT 7.2 GM/DL 2010 Unknown COMPREHENSIVE METABOLIC 01143 Glucose 99 MG/DL 2010 Unknown COMPREHENSIVE METABOLIC 44287 BICARB 28 MMOL/L 2010 Unknown COMPREHENSIVE METABOLIC 83681 ANION GAP 7 MEQ/L 2010 Unknown FREE T4 87988 FREE T4 1.26 NG/DL 04/19/2010 Unknown Procedures Procedure Codes Date ROUTINE VENIPUNCTURE CPT-4: 08417 08/24/2019 COMPREHEN METABOLIC PANEL CPT-4: 60669 08/24/2019 A1C HPLC CPT-4: 80918 08/24/2019 ROUTINE VENIPUNCTURE CPT-4: 27143 05/24/2019 COMPREHEN METABOLIC PANEL CPT-4: 89422 05/24/2019 A1C HPLC CPT-4: 06743 05/24/2019 FLU VACC PRSV FREE INC ANTIG 65 AND OLDER CPT-4: 00148 01/26/2019 FLU VACC PRSV FREE INC ANTIG 65 AND OLDER CPT-4: 20823 01/26/2019 ADMIN INFLUENZA VIRUS VAC CPT-4: G0008 01/26/2019 ROUTINE VENIPUNCTURE CPT-4: 14276 01/26/2019 COMPREHEN METABOLIC PANEL CPT-4: 12709 01/26/2019 COMPLETE CBC W/AUTO DIFF WBC CPT-4: 09369 01/26/2019 LIPID PANEL CPT-4: 84827 01/26/2019 A1C HPLC CPT-4: 70972 01/26/2019 ROUTINE VENIPUNCTURE CPT-4: 53046 09/30/2018 METABOLIC PANEL TOTAL CA CPT-4: 33473 09/30/2018 URINALYSIS NONAUTO W/O SCOPE CPT-4: 96342 08/19/2018 URINE CULTURE/ COLONY COUNT CPT-4: 31937 08/19/2018 MICROALBUMIN QUANTITATIVE CPT-4: 24758 08/19/2018 ROUTINE VENIPUNCTURE CPT-4: 76005 08/16/2018 ASSAY THYROID STIM HORMONE CPT-4: 73017 08/16/2018 COMPREHEN METABOLIC PANEL CPT-4: 74191 08/16/2018 COMPLETE CBC W/AUTO DIFF WBC CPT-4: 85913 08/16/2018 LIPID PANEL CPT-4: 41501 08/16/2018 A1C HPLC CPT-4: 55703 08/16/2018 LIPID PANEL CPT-4: 16109 05/05/2018 COMPREHEN METABOLIC PANEL CPT-4: 99673 05/05/2018 ROUTINE VENIPUNCTURE CPT-4: 03590 05/05/2018 A1C HPLC CPT-4: 42050 05/05/2018 COMPLETE CBC W/AUTO DIFF WBC CPT-4: 09863 05/05/2018 ASSAY THYROID STIM HORMONE CPT-4: 61035 05/05/2018 MICROALBUMIN QUANTITATIVE CPT-4: 31133 01/19/2018 PRESCRIP TRANSMIT VIA ERX SY CPT-4: G8553 01/19/2018 ROUTINE VENIPUNCTURE CPT-4: 36617 01/13/2018 COMPREHEN METABOLIC PANEL CPT-4: 86826 01/13/2018 A1C HPLC CPT-4: 94018 01/13/2018 LIPID PANEL CPT-4: 73113 01/13/2018 ASSAY OF PSA TOTAL CPT-4: 29844 01/13/2018 ASSAY THYROID STIM HORMONE CPT-4: 33329 01/13/2018 ROUTINE VENIPUNCTURE CPT-4: 04298 10/06/2017 COMPREHEN METABOLIC PANEL CPT-4: 87078 10/06/2017 COMPLETE CBC W/AUTO DIFF WBC CPT-4: 91701 10/06/2017 LIPID PANEL CPT-4: 17391 10/06/2017 A1C HPLC CPT-4: 52261 10/06/2017 VITAMIN B-12 CPT-4: 35502 10/06/2017 DESTRUCT PREMALG LESION (Cryosurgery) CPT-4: 01120 DESTRUCT PREMALG LES 2-14 CPT-4: 11465 04/23/2017 PRESCRIP TRANSMIT VIA ERX SY CPT-4: G8553 03/11/2017 ROUTINE VENIPUNCTURE CPT-4: 42924 03/05/2017 ASSAY OF FREE THYROXINE CPT-4: 76459 03/05/2017 ASSAY THYROID STIM HORMONE CPT-4: 30093 03/05/2017 COMPREHEN METABOLIC PANEL CPT-4: 24293 03/05/2017 COMPLETE CBC W/AUTO DIFF WBC CPT-4: 28112 03/05/2017 LIPID PANEL CPT-4: 94225 03/05/2017 A1C HPLC CPT-4: 26772 03/05/2017 ROUTINE VENIPUNCTURE CPT-4: 71876 06/16/2016 ASSAY OF FREE THYROXINE CPT-4: 42113 06/16/2016 ASSAY THYROID STIM HORMONE CPT-4: 77265 06/16/2016 COMPREHEN METABOLIC PANEL CPT-4: 54730 06/16/2016 COMPLETE CBC W/AUTO DIFF WBC CPT-4: 11698 06/16/2016 LIPID PANEL CPT-4: 60460 06/16/2016 A1C HPLC CPT-4: 19346 06/16/2016 ROUTINE VENIPUNCTURE CPT-4: 15968 03/06/2016 ASSAY OF FREE THYROXINE CPT-4: 96478 03/06/2016 ASSAY THYROID STIM HORMONE CPT-4: 80390 03/06/2016 COMPREHEN METABOLIC PANEL CPT-4: 40240 03/06/2016 COMPLETE CBC W/AUTO DIFF WBC CPT-4: 20074 03/06/2016 LIPID PANEL CPT-4: 79282 03/06/2016 A1C HPLC CPT-4: 79159 03/06/2016 PRESCRIP TRANSMIT VIA ERX SY CPT-4: G8553 09/10/2015 PNEUMOCOCCAL VACC 23 ROSANNE IM CPT-4: 31628 09/06/2015 ADMIN PNEUMOCOCCAL VACCINE CPT-4: G0009 09/06/2015 ROUTINE VENIPUNCTURE CPT-4: 19220 08/31/2015 COMPREHEN METABOLIC PANEL CPT-4: 83784 08/31/2015 COMPLETE CBC W/AUTO DIFF WBC CPT-4: 27608 08/31/2015 LIPID PANEL CPT-4: 85127 08/31/2015 ASSAY OF PSA TOTAL CPT-4: 17089 08/31/2015 A1C HPLC CPT-4: 15559 08/31/2015 ASSAY OF FREE THYROXINE CPT-4: 09330 08/31/2015 ASSAY THYROID STIM HORMONE CPT-4: 24481 08/31/2015 PRESCRIP TRANSMIT VIA ERX SY CPT-4: G8553 06/29/2015 FLU VACC PRSV FREE INC ANTIG 65 AND OLDER CPT-4: 14679 01/17/2015 PNEUMOCOCCAL VACC 13 ROSANNE IM CPT-4: 06722 01/17/2015 ADMIN INFLUENZA VIRUS VAC CPT-4: G0008 01/17/2015 ADMIN PNEUMOCOCCAL VACCINE CPT-4: G0009 01/17/2015 DESTRUCT PREMALG LESION (Cryosurgery) CPT-4: 19875 PRESCRIP TRANSMIT VIA ERX SY CPT-4: G8553 01/17/2015 ROUTINE VENIPUNCTURE CPT-4: 30025 01/12/2015 COMPREHEN METABOLIC PANEL CPT-4: 65590 01/12/2015 COMPLETE CBC W/AUTO DIFF WBC CPT-4: 06653 01/12/2015 LIPID PANEL CPT-4: 17823 01/12/2015 A1C HPLC CPT-4: 04457 01/12/2015 DESTRUCT PREMALG LESION (Cryosurgery) CPT-4: 20551 ROUTINE VENIPUNCTURE CPT-4: 45646 08/15/2014 COMPREHEN METABOLIC PANEL CPT-4: 48498 08/15/2014 COMPLETE CBC W/AUTO DIFF WBC CPT-4: 35095 08/15/2014 LIPID PANEL CPT-4: 02750 08/15/2014 A1C HPLC CPT-4: 77133 08/15/2014 ASSAY OF PSA TOTAL CPT-4: 49037 08/15/2014 ASSAY OF FREE THYROXINE CPT-4: 10908 08/15/2014 ASSAY THYROID STIM HORMONE CPT-4: 64476 08/15/2014 ROUTINE VENIPUNCTURE CPT-4: 34927 12/14/2013 ASSAY OF FREE THYROXINE CPT-4: 59387 12/14/2013 ASSAY THYROID STIM HORMONE CPT-4: 04663 12/14/2013 COMPREHEN METABOLIC PANEL CPT-4: 83331 12/14/2013 COMPLETE CBC W/AUTO DIFF WBC CPT-4: 39248 12/14/2013 LIPID PANEL CPT-4: 77041 12/14/2013 A1C HPLC CPT-4: 37565 12/14/2013 ROUTINE VENIPUNCTURE CPT-4: 87900 06/08/2013 ASSAY OF FREE THYROXINE CPT-4: 38821 06/08/2013 ASSAY THYROID STIM HORMONE CPT-4: 97615 06/08/2013 COMPREHEN METABOLIC PANEL CPT-4: 30176 06/08/2013 COMPLETE CBC W/AUTO DIFF WBC CPT-4: 71651 06/08/2013 LIPID PANEL CPT-4: 17902 06/08/2013 A1C HPLC CPT-4: 02822 06/08/2013 ROUTINE VENIPUNCTURE CPT-4: 45129 11/11/2012 COMPREHEN METABOLIC PANEL CPT-4: 63025 11/11/2012 COMPLETE CBC W/AUTO DIFF WBC CPT-4: 25535 11/11/2012 LIPID PANEL CPT-4: 02413 11/11/2012 A1C GLYCOSYLATED HEMOGLOBIN TEST CPT-4: 85835 013 ASSAY THYROID STIM HORMONE CPT-4: 12940 11/11/2012 ROUTINE VENIPUNCTURE CPT-4: 00948 05/04/2012 ASSAY OF FREE THYROXINE CPT-4: 64348 05/04/2012 ASSAY THYROID STIM HORMONE CPT-4: 38151 05/04/2012 COMPREHEN METABOLIC PANEL CPT-4: 17780 05/04/2012 COMPLETE CBC W/AUTO DIFF WBC CPT-4: 83871 05/04/2012 LIPID PANEL CPT-4: 42417 05/04/2012 DESTRUCT PREMALG LESION (Cryosurgery) CPT-4: 80473 DESTRUCT PREMALG LES 2-14 CPT-4: 18704 03/02/2012 ROUTINE VENIPUNCTURE CPT-4: 77151 10/29/2011 COMPREHEN METABOLIC PANEL CPT-4: 96225 10/29/2011 LIPID PANEL CPT-4: 13210 10/29/2011 A1C GLYCOSYLATED HEMOGLOBIN TEST CPT-4: 49975 012 ROUTINE VENIPUNCTURE CPT-4: 18142 07/29/2011 COMPREHEN METABOLIC PANEL CPT-4: 77704 07/29/2011 LIPID PANEL CPT-4: 17664 07/29/2011 A1C GLYCOSYLATED HEMOGLOBIN TEST CPT-4: 29552 012 ROUTINE VENIPUNCTURE CPT-4: 95115 03/14/2011 COMPREHEN METABOLIC PANEL CPT-4: 54654 03/14/2011 LIPID PANEL CPT-4: 53670 03/14/2011 A1C GLYCOSYLATED HEMOGLOBIN TEST CPT-4: 69141 011 ROUTINE VENIPUNCTURE CPT-4: 94279 11/11/2010 COMPREHEN METABOLIC PANEL CPT-4: 93985 11/11/2010 LIPID PANEL CPT-4: 39409 11/11/2010 URINE CULTURE/ COLONY COUNT CPT-4: 58003 11/11/2010 URINALYSIS NONAUTO W/O SCOPE CPT-4: 21777 10/29/2010 URINE CULTURE/ COLONY COUNT CPT-4: 47625 10/29/2010 LIPID PANEL CPT-4: 11255 07/23/2010 COMPREHEN METABOLIC PANEL CPT-4: 09282 07/23/2010 ROUTINE VENIPUNCTURE CPT-4: 33449 07/23/2010 ROUTINE VENIPUNCTURE CPT-4: 90983 04/26/2010 PSA FREE AND TOTAL CPT-4: 96918|79289 04/26/2010 OCCULT BLOOD FECES CPT-4: 42670 04/24/2010 ROUTINE VENIPUNCTURE CPT-4: 38902 04/19/2010 COMPLETE CBC W/AUTO DIFF WBC CPT-4: 56053 04/19/2010 COMPREHEN METABOLIC PANEL CPT-4: 21779 04/19/2010 LIPID PANEL CPT-4: 71312 04/19/2010 TESTOSTERONE TOTAL - MALE CPT-4: 44701 04/19/2010 ASSAY THYROID STIM HORMONE CPT-4: 42026 04/19/2010 ASSAY OF FREE THYROXINE CPT-4: 74714 04/19/2010 VITAMIN D TOTAL (25 HYDROXY) CPT-4: 19459 04/19/2010 Vital Signs Date Vital 08/30/2019 Blood Pressure 1: 144/76 Code: 8480-6 Heart Rate 1: 84 bpm Respiratory Rate: 20 bpm SpO2: 98% Temperature: 36.9 (C) / 98.4 (F) We ight: 240 lbs 06/02/2019 Blood Pressure 1: 132/80 Code: 8480-6 BMI: 29.5 Code: 27542-6 Heart Rate 1: 64 bpm Height: 6'3" [...] 1: 112/70 Code: 8480-6 BMI: 28.9 Code: 34016-2 Heart Rate 1: 60 bpm Height: 6'3" Respiratory Rate: 20 bpm SpO2: 95% Tempera ture: 36.6 (C) / 97.9 (F) Weight: 231 lbs 01/19/2018 Blood Pressure 1: 150/82 Code: 8480-6 Heart Rate 1: 63 bpm Respiratory Rate: 18 bpm SpO2: 98% Temperature: 36.0 (C) / 96.8 (F) We ight: 225 lbs 10/15/2017 Blood Pressure 1: 126/82 Code: 8480-6 BMI: 27.9 Code: 28564-8 Heart Rate 1: 64 bpm Height: 6'3" Respiratory Rate: 20 bpm SpO2: 96% Tempera ture: 36.7 (C) / 98.1 (F) Weight: 223 lbs 04/23/2017 Blood Pressure 1: 136/74 Code: 8480-6 BMI: 28.7 Code: 71985-0 Heart Rate 1: 76 bpm Height: 6'3" Respiratory Rate: 20 bpm Temperature: 37 .0 (C) / 98.6 (F) Weight: 230 lbs 03/11/2017 Blood Pressure 1: 136/66 Code: 8480-6 BMI: 28.6 Code: 20797-5 Heart Rate 1: 60 bpm Height: 6'3" Respiratory Rate: 20 bpm Temperature: 36 .7 (C) / 98.1 (F) Weight: 229 lbs 07/09/2016 Blood Pressure 1: 132/80 Code: 8480-6 BMI: 27.7 Code: 83099-3 Heart Rate 1: 64 bpm Height: 6'3" Respiratory Rate: 20 bpm SpO2: 96% Tempera ture: 36.9 (C) / 98.4 (F) Weight: 222 lbs 03/10/2016 Blood Pressure 1: 134/78 Code: 8480-6 BMI: 28.5 Code: 02916-0 Heart Rate 1: 60 bpm Height: 6'3" Respiratory Rate: 20 bpm SpO2: 96% Tempera ture: 36.7 (C) / 98.1 (F) Weight: 228 lbs 09/12/2015 Blood Pressure 1: 136/78 Code: 8480-6 Heart Rate 1: 84 bpm Height: Respiratory Rate: 24 bpm SpO2: 97% Temperature: 36.4 (C) / 97.6 (F) We ight: 09/10/2015 Blood Pressure 1: 124/ Code: 8480-6 BMI: 28.5 Code: 36271-4 Heart Rate 1: 76 bpm Height: 6'3" Respiratory Rate: 24 bpm SpO2: 97% Tempera ture: 36.4 (C) / 97.6 (F) Weight: 228 lbs 09/06/2015 Blood Pressure 1: 124/82 Code: 8480-6 BMI: 29.0 Code: 46482-7 Heart Rate 1: 66 bpm Height: 6'3" Respiratory Rate: 20 bpm SpO2: 97% Tempera ture: 36.4 (C) / 97.6 (F) Weight: 232 lbs 06/29/2015 Blood Pressure 1: 124/82 Code: 8480-6 Heart Rate 1: 88 bpm Height: Respiratory Rate: 20 bpm Temperature: 36.7 (C) / 98.1 (F) Weight: 01/17/2015 Blood Pressure 1: 124 Code: 8480-6 BMI: 27.7 Code: 08608-1 Heart Rate 1: 76 bpm Height: 6'3" Respiratory Rate: 20 bpm Temperature: 36 .6 (C) / 97.8 (F) Weight: 222 lbs 09/19/2014 Blood Pressure 1: 128/80 Code: 8480-6 BMI: 27.4 Code: 96930-3 Heart Rate 1: 64 bpm Height: 6'3" Respiratory Rate: 20 bpm Temperature: 36 .4 (C) / 97.6 (F) Weight: 219 lbs 10/17/2013 Blood Pressure 1: 11670 Code: 8480-6 Heart Rate 1: 88 bpm Respiratory Rate: 20 bpm Temperature: 36.9 (C) / 98.4 (F) Weight: 220 lbs 09/23/2013 Blood Pressure 1: 12480 Code: 8480-6 BMI: 28.7 Code: 51930-3 Heart Rate 1: 76 bpm Height: 6'3" Respiratory Rate: 20 bpm Temperature: 36 .8 (C) / 98.2 (F) Weight: 230 lbs 07/22/2013 Blood Pressure 1: 128/70 Code: 8480-6 He art Rate 1: 78 bpm 06/20/2013 Blood Pressure 1: 144/86 Code: 8480-6 BMI: 28.7 Code: 64087-2 Heart Rate 1: 92 bpm Height: 6'3" Respiratory Rate: 20 bpm Temperature: 36 .4 (C) / 97.6 (F) Weight: 230 lbs 11/25/2012 Blood Pressure 1: 128/80 Code: 8480-6 BMI: 27.5 Code: 82151-3 Heart Rate 1: 92 bpm Height: 6'3" Respiratory Rate: 20 bpm Temperature: 36 .8 (C) / 98.3 (F) Weight: 220 lbs 08/27/2012 Blood Pressure 1: 142/80 Code: 8480-6 BMI: 27.7 Code: 96946-2 Heart Rate 1: 76 bpm Height: 6'3" Respiratory Rate: 20 bpm Temperature: 36 .8 (C) / 98.3 (F) Weight: 222 lbs 05/11/2012 Blood Pressure 1: 136/80 Code: 8480-6 BMI: 27.7 Code: 78972-9 Heart Rate 1: 76 bpm Height: 6'3" Respiratory Rate: 20 bpm Temperature: 36 .8 (C) / 98.3 (F) Weight: 222 lbs 03/02/2012 Blood Pressure 1: 136/70 Code: 8480-6 BMI: 28.0 Code: 37402-0 Heart Rate 1: 80 bpm Height: 6'3" Respiratory Rate: 20 bpm Temperature: 36 .6 (C) / 97.8 (F) Weight: 224 lbs 12/11/2011 Blood Pressure 1: 142/80 Code: 8480-6 BMI: 27.1 Code: 93346-7 Heart Rate 1: 84 bpm Height: 6'3" Respiratory Rate: 20 bpm Temperature: 36 .9 (C) / 98.4 (F) Weight: 217 lbs 08/14/2011 Blood Pressure 1: 130/82 Code: 8480-6 He art Rate 1: 64 bpm 07/29/2011 Blood Pressure 1: 132/64 Code: 8480-6 BMI: 26.7 Code: 29231-8 Heart Rate 1: 72 bpm Height: 6'3" [...] 1: 142/88 Code: 8480-6 BMI: 26.4 Code: 51551-4 Heart Rate 1: 80 bpm Height: 6'3" [...] labs Encounters Encounter Performer Location Codes Date ([id number]) OFFICE/OUTPATIENT VISIT EST Diagnosis: Type 2 diabetes mellitus with hyperglycemia[ICD10: E11.65] Diagnosis: Essential hypertension[ICD10: I10] Diagnosis: Stress reaction[ICD10: F43.0] Najma Grey [facility] CPT-4: 14789 08/30/2019 ([id number]) NURSE/OUTPATIENT VISIT EST Diagnosis: Essential (primary) hypertension[ICD10: I10] Diagnosis: Type 2 diabetes mellitus with hyperglycemia[ICD10: E11.65] Najma Grey [facility] [employer] CPT-4: 49964 08/24/2019 ([id number]) OFFICE/OUTPATIENT VISIT EST Diagnosis: Essential (primary) hypertension[ICD10: I10] Diagnosis: Gastro-esophageal reflux disease without esophagitis[ICD10: K21.9] Diagnosis: Type 2 diabetes mellitus with hyperglycemia[ICD10: E11.65] Najma Grey [facility] CPT-4: 98045 06/02/2019 ([id number]) NURSE/OUTPATIENT VISIT EST Diagnosis: Type 2 diabetes mellitus without complications[ICD10: E11.9] Diagnosis: Essential (primary) hypertension[ICD10: I10] Diagnosis: Mixed hyperlipidemia[ICD10: E78.2] Najma Grey [facility] [employer] [facility] CPT-4: 38868 05/24/2019 ([id number]) OFFICE/OUTPATIENT VISIT EST Diagnosis: Essential (primary) hypertension[ICD10: I10] Diagnosis: Type 2 diabetes mellitus without complications[ICD10: E11.9] Diagnosis: Mixed hyperlipidemia[ICD10: E78.2] Najma KATHLEENGazelle [employer] [facility] CPT-4: 43090 01/31/2019 ([id number]) NURSE/OUTPATIENT VISIT EST Diagnosis: Mixed hyperlipidemia[ICD10: E78.2] Diagnosis: Type 2 diabetes mellitus without complications[ICD10: E11.9] Diagnosis: Essential (primary) hypertension[ICD10: I10] Diagnosis: Chronic kidney disease, unspecified[ICD10: N18.9] Najma MANUELLINE Matilda OG [employer] [facility] CPT-4: 77016 01/26/2019 ([id number]) NURSE/OUTPATIENT VISIT EST Diagnosis: Chronic kidney disease, unspecified[ICD10: N18.9] Diagnosis: Essential (primary) hypertension[ICD10: I10] Najma LONG [employer] [facility] CPT-4: 99485 09/30/2018 ([id number]) OFFICE/OUTPATIENT VISIT EST Diagnosis: Essential (primary) hypertension[ICD10: I10] Diagnosis: Type 2 diabetes mellitus without complications[ICD10: E11.9] Diagnosis: Mixed hyperlipidemia[ICD10: E78.2] Diagnosis: Unspecified kidney failure[ICD10: N19] Najma Hevervicentedasha SHABNAM CHAPMAN Matilda LONG [employer] [facility] CPT-4: 13765 08/19/2018 ([id number]) NURSE/OUTPATIENT VISIT EST Diagnosis: Essential (primary) hypertension[ICD10: I10] Diagnosis: Type 1 diabetes mellitus with unspecified complications[ICD10: E10.8] Diagnosis: Mixed hyperlipidemia[ICD10: E78.2] Najma Orenddasha ANUM GODINEZ Matilda OG [employer] [facility] CPT-4: 33548 08/16/2018 ([id number]) OFFICE/OUTPATIENT VISIT EST Diagnosis: Essential (primary) hypertension[ICD10: I10] Diagnosis: Type 2 diabetes mellitus without complications[ICD10: E11.9] Diagnosis: Mixed hyperlipidemia[ICD10: E78.2] Najma OG DO [employer] CPT-4: 06169 05/10/2018 ([id number]) NURSE/OUTPATIENT VISIT EST Diagnosis: Essential (primary) hypertension[ICD10: I10] Diagnosis: Mixed hyperlipidemia[ICD10: E78.2] Diagnosis: Type 1 diabetes mellitus with unspecified complications[ICD10: E10.8] Najma OG DO [facility] CPT-4: 40145 05/05/2018 ([id number]) OFFICE/OUTPATIENT VISIT EST Diagnosis: Type 2 diabetes mellitus without complications[ICD10: E11.9] Diagnosis: Mixed hyperlipidemia[ICD10: E78.2] Diagnosis: Nicotine dependence, unspecified, uncomplicated[ICD10: F17.200] Diagnosis: Essential (primary) hypertension[ICD10: I10] Najma OG DO [employer] CPT-4: 65838 01/19/2018 ([id number]) NURSE/OUTPATIENT VISIT EST Diagnosis: Type 1 diabetes mellitus with unspecified complications[ICD10: E10.8] Diagnosis: Essential (primary) hypertension[ICD10: I10] Diagnosis: Male erectile disorder[ICD10: F52.21] Diagnosis: Encounter for screening for malignant neoplasm of prostate[ICD10: Z12.5] Najma OG DO [employer] CPT-4: 93920 01/13/2018 ([id number]) OFFICE/OUTPATIENT VISIT EST Diagnosis: Type 2 diabetes mellitus without complications[ICD10: E11.9] Diagnosis: Essential (primary) hypertension[ICD10: I10] Diagnosis: Mixed hyperlipidemia[ICD10: E78.2] Najma OG [employer] CPT-4: 58205 10/15/2017 ([id number]) NURSE/OUTPATIENT VISIT EST Diagnosis: Type 2 diabetes mellitus without complications[ICD10: E11.9] Diagnosis: Mixed hyperlipidemia[ICD10: E78.2] Diagnosis: Essential (primary) hypertension[ICD10: I10] Diagnosis: Glossitis[ICD10: K14.0] Najma THAKKAR [employer] CPT-4: 20160 10/06/2017 ([id number]) OFFICE/OUTPATIENT VISIT EST Diagnosis: Type 2 diabetes mellitus without complications[ICD10: E11.9] Diagnosis: Mixed hyperlipidemia[ICD10: E78.2] Diagnosis: Essential (primary) hypertension[ICD10: I10] Najma OG [employer] CPT-4: 51807 03/11/2017 ([id number]) OFFICE/OUTPATIENT VISIT EST Diagnosis: Type 1 diabetes mellitus with unspecified complications[ICD10: E10.8] Diagnosis: Mixed hyperlipidemia[ICD10: E78.2] Diagnosis: Essential (primary) hypertension[ICD10: I10] Diagnosis: Other fatigue[ICD10: R53.83] Najma OG [employer] CPT-4: 70846 03/05/2017 ([id number]) OFFICE/OUTPATIENT VISIT EST Diagnosis: Type 2 diabetes mellitus without complications[ICD10: E11.9] Diagnosis: Mixed hyperlipidemia[ICD10: E78.2] Diagnosis: Essential (primary) hypertension[ICD10: I10] Diagnosis: Nicotine dependence, unspecified, uncomplicated[ICD10: F17.200] Najma OG [employer] CPT-4: 19928 07/09/2016 ([id number]) OFFICE/OUTPATIENT VISIT EST Diagnosis: Type 1 diabetes mellitus with unspecified complications[ICD10: E10.8] Diagnosis: Mixed hyperlipidemia[ICD10: E78.2] Diagnosis: Essential (primary) hypertension[ICD10: I10] Najma OG [employer] CPT-4: 19228 06/16/2016 ([id number]) OFFICE/OUTPATIENT VISIT EST Diagnosis: Type 2 diabetes mellitus without complications[ICD10: E11.9] Diagnosis: Mixed hyperlipidemia[ICD10: E78.2] Diagnosis: Essential (primary) hypertension[ICD10: I10] Najma OG [employer] CPT-4: 79842 03/10/2016 ([id number]) OFFICE/OUTPATIENT VISIT EST Diagnosis: Type 1 diabetes mellitus with unspecified complications[ICD10: E10.8] Diagnosis: Mixed hyperlipidemia[ICD10: E78.2] Diagnosis: Essential (primary) hypertension[ICD10: I10] Najma OG [employer] CPT-4: 94463 03/06/2016 ([id number]) OFFICE/OUTPATIENT VISIT EST Diagnosis: Bitten or stung by nonvenomous insect and other nonvenomous arthropods, subsequent encounter[ICD10: W57.XXXD] Diagnosis: Insect bite (nonvenomous), right thigh, subsequent encounter[ICD10: S70.361D] Barbara Brower NAJMA AmeenaMatilde [employer] [facility] CPT-4: 04517 11/2015 ([id number]) OFFICE/OUTPATIENT VISIT EST Diagnosis: Bitten or stung by nonvenomous insect and other nonvenomous arthropods, initial encounter[ICD10: W57.XXXA] Diagnosis: Insect bite (nonvenomous), right thigh, initial encounter[ICD10: S70.361A] Barbara Brower NAJMA AmeenaMatilde [employer] [facility] CPT-4: 30898 09/2015 ([id number]) OFFICE/OUTPATIENT VISIT EST Diagnosis: Mixed hyperlipidemia[ICD10: E78.2] Diagnosis: Essential (primary) hypertension[ICD10: I10] Diagnosis: Type 2 diabetes mellitus without complications[ICD10: E11.9] Diagnosis: Encounter for immunization[ICD10: Z23] Diagnosis: Encounter for screening for malignant neoplasm of colon[ICD10: Z12.11] Diagnosis: Abnormal weight gain[ICD10: R63.5] Barbara Brower ANUM GODINEZ [employer] [facility] CPT-4: 77628 09/06/2015 ([id number]) OFFICE/OUTPATIENT VISIT EST Diagnosis: Type 2 diabetes mellitus without complications[ICD10: E11.9] Diagnosis: Mixed hyperlipidemia[ICD10: E78.2] Diagnosis: Essential (primary) hypertension[ICD10: I10] Diagnosis: Encounter for screening for malignant neoplasm of prostate[ICD10: Z12.5] Diagnosis: Other fatigue[ICD10: R53.83] Najma MCARTHUR [employer] [facility] CPT-4: 58516 08/31/2015 OFFICE/OUTPATIENT VISIT EST Diagnosis: Diarrhea, unspecified[ICD10: R19.7] Henrietta MCCOY [employer] [facility] CPT-4: 02607 06/29/2015 OFFICE/OUTPATIENT VISIT EST Diagnosis: PNEUMOCOCCAL VACCINE[ICD10: Z23] Diagnosis: FLU VACCINE[ICD10: Z23] Diagnosis: Essential (primary) hypertension[ICD10: I10] Diagnosis: Mixed hyperlipidemia[ICD10: E78.2] Diagnosis: Type 1 diabetes mellitus with unspecified complications[ICD10: E10.8] Diagnosis: Actinic keratosis[ICD10: L57.0] Najma Kathleenora MCARTHUR Matilda OG [employer] [facility] CPT-4: 98750 01/17/2015 ([id number]) OFFICE/OUTPATIENT VISIT EST Diagnosis: Type 2 diabetes mellitus without complications[ICD10: E11.9] Diagnosis: Impaired fasting glucose[ICD10: R73.01] Diagnosis: Mixed hyperlipidemia[ICD10: E78.2] Diagnosis: Essential (primary) hypertension[ICD10: I10] Najma MCARTHUR Matilda OG [employer] CPT-4: 25779 01/12/2015 ([id number]) OFFICE/OUTPATIENT VISIT EST Diagnosis: - I - HYPERLIPIDEMIA NEC/NOS[ICD9: 272.4] Diagnosis: HYPERTENSION[ICD9: 401.9] Diagnosis: DM W/O COMPLICATION TYPE II[ICD9: 250.00] Diagnosis: ACTINIC KERATOSIS[ICD9: 702.0] Najma MCARTHUR Ameena Clayton [employer] CPT-4: 26283 09/19/2014 ([id number]) OFFICE/OUTPATIENT VISIT EST Diagnosis: HYPERLIPIDEMIA NEC/NOS[ICD9: 272.4] Diagnosis: HYPERTENSION[ICD9: 401.9] Diagnosis: IMPAIRED FASTING GLUCOSE[ICD9: 790.21] Diagnosis: MALAISE AND FATIGUE[ICD9: 780.79] Najma Jenkins Matilda [employer] CPT-4: 26961 08/15/2014 ([id number]) OFFICE/OUTPATIENT VISIT EST Diagnosis: HYPERLIPIDEMIA NEC/NOS[ICD9: 272.4] Diagnosis: HYPERTENSION[ICD9: 401.9] Diagnosis: IMPAIRED FASTING GLUCOSE[ICD9: 790.21] Najma CHAPMAN Matilda [employer] CPT-4: 16526 12/14/2013 ([id number]) OFFICE/OUTPATIENT VISIT EST Diagnosis: Post herpetic neuralgia[ICD9: 053.19] Najma OG [facility] CPT-4: 79402 10/17/2013 OFFICE/OUTPATIENT VISIT EST Diagnosis: Shingles[ICD9: 053.9] Diagnosis: Post herpetic neuralgia[ICD9: 053.19] Jeanie OG [facility] CPT-4: 20894 09/23/2013 ([id number]) OFFICE/OUTPATIENT VISIT EST Diagnosis: HYPERTENSION[ICD9: 401.9] Diagnosis: HYPERLIPIDEMIA NEC/NOS[ICD9: 272.4] Diagnosis: IMPAIRED FASTING GLUCOSE[ICD9: 790.21] Najma OG [facility] CPT-4: 41325 06/20/2013 ([id number]) OFFICE/OUTPATIENT VISIT EST Diagnosis: HYPERLIPIDEMIA NEC/NOS[ICD9: 272.4] Diagnosis: MALAISE AND FATIGUE[ICD9: 780.79] Diagnosis: ROUTINE MEDICAL EXAM[ICD9: V70.0] Diagnosis: HYPERTENSION[ICD9: 401.9] Diagnosis: IMPAIRED FASTING GLUCOSE[ICD9: 790.21] Najma OG [facility] CPT-4: 25566 06/08/2013 ([id number]) OFFICE/OUTPATIENT VISIT EST Diagnosis: HYPERLIPIDEMIA NEC/NOS[ICD9: 272.4] Diagnosis: HYPERTENSION[ICD9: 401.9] Diagnosis: IMPAIRED FASTING GLUCOSE[ICD9: 790.21] Diagnosis: DIARRHEA[ICD9: 787.91] Najma MCARTHUR AmeenaMatilde BRITTNI Stallings [facility] CPT-4: 56806 11/25/2012 ([id number]) OFFICE/OUTPATIENT VISIT EST Diagnosis: HYPERLIPIDEMIA NEC/NOS[ICD9: 272.4] Diagnosis: HYPERTENSION[ICD9: 401.9] Diagnosis: IMPAIRED FASTING GLUCOSE[ICD9: 790.21] Diagnosis: MALAISE AND FATIGUE[ICD9: 780.79] Najma Jenknis AmeenaMatilde [facility] CPT-4: 41738 11/11/2012 OFFICE/OUTPATIENT VISIT EST Diagnosis: Fungal dermatitis[ICD9: 111.9] Diagnosis: Dry skin dermatitis[ICD9: 692.89] Henrietta Grey HEVERVICENTEER DO [facility] CPT-4: 77198 08/27/2012 ([id number]) OFFICE/OUTPATIENT VISIT EST Diagnosis: HYPERTENSION[ICD9: 401.9] Diagnosis: HYPERLIPIDEMIA NEC/NOS[ICD9: 272.4] Najma OG DO [facility] CPT-4: 47795 05/11/2012 ([id number]) OFFICE/OUTPATIENT VISIT EST Diagnosis: HYPERLIPIDEMIA NEC/NOS[ICD9: 272.4] Diagnosis: HYPERTENSION[ICD9: 401.9] Diagnosis: ROUTINE MEDICAL EXAM[ICD9: V70.0] Najma OG DO [facility] CPT-4: 52296 05/04/2012 ([id number]) OFFICE/OUTPATIENT VISIT EST Diagnosis: HYPERTENSION[ICD9: 401.9] Diagnosis: HYPERLIPIDEMIA NEC/NOS[ICD9: 272.4] Diagnosis: IMPAIRED FASTING GLUCOSE[ICD9: 790.21] Najma OG DO [facility] CPT-4: 46420 12/11/2011 ([id number]) OFFICE/OUTPATIENT VISIT EST Diagnosis: HYPERLIPIDEMIA NEC/NOS[ICD9: 272.4] Diagnosis: HYPERTENSION[ICD9: 401.9] Diagnosis: IMPAIRED FASTING GLUCOSE[ICD9: 790.21] Najma OG DO [facility] CPT-4: 68927 10/29/2011 ([id number]) OFFICE/OUTPATIENT VISIT EST Diagnosis: HYPERTENSION[ICD9: 401.9] Najma PAYAN DO [facility] CPT-4: 45412 08/14/2011 ([id number]) OFFICE/OUTPATIENT VISIT EST Diagnosis: HYPERTENSION[ICD9: 401.9] Diagnosis: IMPAIRED FASTING GLUCOSE[ICD9: 790.21] Najma OG DO [facility] CPT-4: 68302 07/29/2011 ([id number]) OFFICE/OUTPATIENT VISIT EST Diagnosis: HYPERTENSION[ICD9: 401.9] Najma PAYAN DO [facility] CPT-4: 37591 07/23/2011 ([id number]) OFFICE/OUTPATIENT VISIT EST Diagnosis: HYPERTENSION[ICD9: 401.9] Najma PAYAN DO [facility] CPT-4: 29516 06/24/2011 OFFICE/OUTPATIENT VISIT EST Diagnosis: HYPERTENSION[ICD9: 401.9] Najma PAYAN DO [facility] CPT-4: 70752 05/20/2011 OFFICE/OUTPATIENT VISIT EST Diagnosis: HYPERTENSION[ICD9: 401.9] Najma ZARATER [facility] CPT-4: 87890 04/15/2011 OFFICE/OUTPATIENT VISIT EST Diagnosis: HYPERLIPIDEMIA NEC/NOS[ICD9: 272.4] Diagnosis: IMPAIRED FASTING GLUCOSE[ICD9: 790.21] Najma OG DO [facility] CPT-4: 09722 03/18/2011 ([id number]) OFFICE/OUTPATIENT VISIT EST Najma OG DO [employer] CPT-4: 39358 07/30/2010 ([id number]) PREV VISIT, EST, AGE 40-64 Najma OG DO [facility] CPT-4: 19909 04/24/2010 Plan of Care Planned Activity Notes Codes Status Date Visit Diagnosis Plan: Type 2 diabetes mellitus [...] ICD-9 : 401.9 ICD-10 : I10 08/30/2019 Patient Education: escitalopram oxalate- [employer] [place] [id number] [email or web address] Completed 08/30/2019 Appointment: Njama Og WPtel[facility] [phone] [id number] [facility] 08/24/2019 Visit Diagnosis Plan: Type [...] : K21.9 06/02/2019 Appointment: Najma Og WPtel: [address] [place] [address] US FOLLOW UP 06/02/2019 Appointment: Najma Og WPtel: [address] [place], [place] [phone] US LAB 05/24/2019 Visit Diagnosis Plan: Essential [...] 272.2 ICD-10 : E78.2 01/31/2019 Appointment: Najma Ogtel: [address] [place], [place] [phone] US FOLLOW UP 01/31/2019 Appointment: Najma Og WPtel: [address] [place], [place] [phone] US LAB 01/26/2019 Appointment: Najma Og WPtel: [address] [place], [place] [phone] US LAB 09/30/2018 Visit Diagnosis Plan: Unspecified [...] : E11.9 08/19/2018 Appointment: Najma Og WPtel: [address] [place], [place] [phone] FOLLOW UP 08/19/2018 Appointment: Najma Og WPtel: [address] [place], [place] [phone] US LAB 08/16/2018 Visit Diagnosis Plan: Essential [...] : E78.2 05/10/2018 Appointment: Najma Og WPtel: [address] [place], [place] [id number] FOLLOW UP 05/10/2018 Patient Education: Low Back Pain Exercises: Illustration Completed 05/10/2018 Patient Education: Low Back Pain Exercises Completed 05/10/2018 Appointment: Najma Og WPtel: [address] [place], [place] [id number] US LAB 05/05/2018 Visit Diagnosis Plan: Type [...] : E78.2 01/19/2018 Appointment: Najma Og WPtel: [address] [place], [place] [id number] FOLLOW UP 01/19/2018 Patient Education: Patient Medication Summary Completed 01/19/2018 Appointment: Najma Og WPtel: [address] [place], [place] [id number] US LAB 01/13/2018 Patient Education: Patient Medication [...] : I10 10/15/2017 Appointment: Najma Og WPtel: [address] [place], [place] [id number] US FOLLOW UP 10/15/2017 Patient Education: Patient Medication Summary Completed 10/15/2017 Appointment: Najma Og WPtel: [address] [place], [place] [id number] US LAB 10/06/2017 Patient Education: Patient Medication Summary Completed 10/06/2017 Visit Diagnosis Plan: Actinic keratosis Discussion: Cr yotherapy as above ICD-9 : 702.0 ICD-10 : L57.0 04/23/2017 Appointment: Najma Og WPtel: [address] [place], [place] [id number] OFFICE SURGERY 04/23/2017 Patient Education: Patient Medication [...] : E78.2 03/11/2017 Appointment: Najma Og WPtel: [address] [place], [place] [phone] US FOLLOW UP 03/11/2017 Patient Education: Patient Medication Summary Completed 03/11/2017 Appointment: Najma Og WPtel: [address] [place], [place] [id number] LAB 03/05/2017 Patient Education: Patient Medication Summary [...] : F17.200 07/09/2016 Appointment: Najma Og WPtel: [address] [place], [place] [id number] US 07/08 lm ~sl 07/09 confirmed~sl FOLLOW UP 08/2016 Patient Education: Patient Medication Summary Completed 07/09/2016 Appointment: Najma Og WPtel: [address] [place], [place] [id number] US LAB 06/16/2016 Patient Education: Patient Medication Summary Completed 06/16/2016 Visit Plan: Lab discussed Accjeremy shine Lifestyle change for 3mos then check CMP, HbA1C in 3mos Has had flu and pneumonia shot 03/10/2016 Appointment: Najma Og WPtel: [address] [place], [place] [phone] 03/06 confirmed `sl FOLLOW UP 03/10/2016 Patient Education: Patient Medication Summary Completed 03/10/2016 Appointment: Najma Og WPtel: [address] [place], [place] [phone] LAB 03/06/2016 Patient Education: Patient Medication Summary Completed 03/06/2016 Referral: Donavon Keller WPtel: [id number] [place] Referral Completed 10/22/2015 Visit Plan: Tick bite area looks much be tter Continue current rxs and close monitoring Follow up if any new symptoms or worsening appearance 09/12/2015 Appointment: Barbara Brower [address] [place], [place] [id number] 09/10 confirmed~sl FOLLOW UP 09/12/2015 Patient Education: Patient Medication Summary Completed 09/12/2015 Visit Plan: Cover as above 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 topical steroids to calm down the inflammation(suspect most of redness is due to histamine response vs infection) Monitor closely Follow up in 2 days to recheck 09/10/2015 Appointment: Barbara Brower [address] [place] [address] ACUTE ILLNESS 09/10/2015 Patient Education: Patient Medication [...] consider shingles vaccine 09/06/2015 Appointment: Barbara Brower [address] [place], [place] [phone] FOLLOW UP 09/06/2015 Patient Education: Patient Medication Summary Completed 09/06/2015 Care Plan: Referral Order SNOMED-CT : [id number] Pending 09/06/2015 Appointment: Najma Og WPtel: [address] [place], [place] [phone] [place] LAB 08/31/2015 Patient Education: Patient Medication [...] to UC/ER. 06/29/2015 Appointment: Henrietta Lubin WPtel: [address] [place], [place] [id number] ACUTE ILLNESS 06/29/2015 Patient Education: Patient Medication Summary Completed 06/29/2015 Visit Plan: Lab discussed Will keep meds the same Discussed diet/exercise at length Cryotherapy as above to AKs of arms Flu and Prevnar 13 given Trial of revatio per patient request for ED--warned of no nitrates Recheck 4mos 01/17/2015 Appointment: Najma Og WPtel: [address] [place] [address] 01/16 confirmed~sl FOLLOW UP 01/17/2015 Patient Education: Patient Medication Summary Completed 01/17/2015 Appointment: Najma Og WPtel: [address] [place], [place] [phone] [place] LAB 01/12/2015 Patient Education: Patient Medication Summary Completed 01/12/2015 Visit Plan: Lab discussed Start accuchec ks daily Cryotherapy as above 09/19/2014 Appointment: Najma Og WPtel: [address] [place] [phone] 09/18 confirmed -mf FOLLOW UP 09/19/2014 Patient Education: Patient Medication Summary Completed 09/19/2014 Appointment: Najma Og WPtel: [address] [place] [phone] [place] LAB 08/15/2014 Patient Education: Patient Medication Summary Completed 08/15/2014 Appointment: Najma Og WPtel: [address] [place] [address] ACUTE ILLNESS 12/14/2013 Patient Education: Patient Medication Summary Completed 12/14/2013 Visit Plan: Patient using tylenol prn pa in Discussed possible shingles shot for booster in 9-12mos 10/17/2013 Appointment: Najma Og WPtel: [address] [place] [address] FOLLOW UP 10/17/2013 Patient Education: Patient Medication Summary Completed 10/17/2013 Appointment: Jeanie Briceño WPtel: [address] [place] [address] ACUTE ILLNESS 09/23/2013 Patient Education: Patient Medication Summary Completed 09/23/2013 Appointment: Najma Og WPtel: [address] [place] [address] BP CHECK 07/22/2013 Patient Education: Patient Medication Summary Completed 07/22/2013 Visit Plan: Lab discussed Discussed swit arun amlodopine to beta slim to see if helps with tremor BP check in 1mo 06/20/2013 Appointment: Najma Og WPtel: [address] [place] [address] 06/17 no answer FOLLOW UP 06/20/2013 Patient Education: Patient Medication Summary Completed 06/20/2013 Appointment: Najma Og WPtel: [address] [place], [place] [phone] [place] LAB 06/08/2013 Patient Education: Patient Medication Summary Completed 06/08/2013 Visit Plan: BRAT diet and yogurt and gat orade Lab discussed Continue current meds Spot checks on BS 11/25/2012 Appointment: Najma Og WPtel: [address] [place], [place] [id number] 11/24 vm FOLLOW UP 11/25/2012 Patient Education: Patient Medication Summary Completed 11/25/2012 Appointment: Najma Og WPtel: [address] [place] [phone] LAB 11/11/2012 Patient Education: Patient Medication Summary Completed 11/11/2012 Appointment: Henrietta Lubin WPtel: [address] [place], [place] [phone] WORK IN 08/27/2012 Patient Education: Patient Medication Summary Completed 08/27/2012 Visit Plan: Pt going to get new home BP moniter Continue crestor and restart fish oil and will check fasting lab in 6mos Lab results discussed 05/11/2012 Appointment: Najma Og WPtel: [address] [place], [place] [phone] 05/10 FOLLOW UP 05/11/2012 Patient Education: Patient Medication Summary Completed 05/11/2012 Appointment: Najma Og WPtel: [address] [place], [place] [phone] LAB 05/04/2012 Patient Education: Patient Medication Summary Completed 05/04/2012 Visit Plan: 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 and forehead 03/02/2012 Appointment: Najma Og WPtel: [address] [place] [phone] 03/01 OFFICE SURGERY 03/02/2012 Patient Education: Patient Medication Summary Completed 03/02/2012 Visit Plan: Labs discussed--recheck lab end of Feb/ of Mar Continue current meds and continue to moniter BS daily and BP 1-2 times a week Plan on cryotherapy this fall so can wear longsleeves after procedure See urology 12/11/2011 Appointment: Najma Og WPtel: [address] [place], [place] [phone] FOLLOW UP 12/11/2011 Patient Education: Patient Medication Summary Completed 12/11/2011 Appointment: Najma Og WPtel: [address] [place] [phone] [place] LAB 10/29/2011 Patient Education: Patient Medication Summary Completed 10/29/2011 Appointment: Najma Og WPtel: [address] [place] [address] BP CHECK 08/14/2011 Patient Education: Patient Medication Summary Completed 08/14/2011 Appointment: Najma Og WPtel: [address] [place] [address] ACUTE ILLNESS 07/29/2011 Patient Education: Patient Medication Summary Completed 07/29/2011 Appointment: Najma Og WPtel: [address] [place] [address] BP CHECK 07/23/2011 Patient Education: Patient Medication Summary Completed 07/23/2011 Appointment: Najma Og WPtel: [address] [place] [address] BP CHECK 06/24/2011 Patient Education: Patient Medication Summary Completed 06/24/2011 Appointment: Najma Og WPtel: [address] [place] [address] BP CHECK 05/20/2011 Patient Education: Patient Medication Summary Completed 05/20/2011 Appointment: Najma Og WPtel: [address] [place] [address] BP CHECK 04/29/2011 Patient Education: Patient Medication Summary Completed 04/29/2011 Appointment: Najma Og WPtel: [address] [place] [address] BP CHECK 04/15/2011 Patient Education: Patient Medication Summary Completed 04/15/2011 Visit Plan: Continue current meds Add fi sh oil 1gm daily Glucometer given to use for accuchecks prn 03/18/2011 Appointment: Najma Og WPtel: [address] [place] [address] FOLLOW UP 03/18/2011 Patient Education: Patient Medication Summary Completed 03/18/2011 Appointment: Najma Og WPtel: [address] [place], [place] [phone] [place] LAB 03/14/2011 Patient Education: Patient Medication Summary Completed 03/14/2011 Appointment: Najma Og WPtel: [address] [place], [place] [phone] [place] LAB 11/11/2010 Appointment: Najma Og WPtel: [address] [place], [place] [id number] [place] UA 11/11/2010 Patient Education: Patient Medication Summary Completed 11/11/2010 Appointment: Najma Og WPtel: [address] [place], [place] [phone] LAB 10/29/2010 Patient Education: Patient Medication Summary Completed 10/29/2010 Appointment: Najma Og WPtel: [address] [place], [place] [id number] [place] FOLLOW UP 07/30/2010 Patient Education: Patient Medication Summary Completed 07/30/2010 Appointment: Najma Og WPtel: [address] [place] [phone] [place] LAB 07/23/2010 Patient Education: Patient Medication Summary Completed 07/23/2010 Appointment: Najma Og WPtel: [address] [place] [phone] LAB 04/26/2010 Patient Education: Patient Medication Summary Completed 04/26/2010 Visit Plan: Add PSA to lab Restart Crest or at 10mg daily Trial of Wellbutrin to aid in smoking cessation Check Lipids and LFTs in 3mos 04/24/2010 Appointment: Najma Og WPtel: [address] [place], [place] [id number] [place] FOLLOW UP 04/24/2010 Patient Education: Patient Medication Summary Completed 04/24/2010 Appointment: Najma Og WPtel: [address] [id number] [place] LAB 04/19/2010 Patient Education: Patient Medication Summary Completed 04/19/2010 Referral: Donavon Keller WPtel: [address] [id number] [place] Referral Completed Instructions Comment . Lab [...] + labs. CBC & CMP at [facility] Discussed needed oral hydration (preferably with [...]
--- OUTSIDE RECORDS SUMMARY | 2019-10-14 22:33 | XMS REPORT | CCD ---
Author Author Inocente Og D.O. 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 PP Unavailable CCM Unavailable Summary Purpose Interface Exchange Insurance Providers Payer name Policy type / Coverage type Covered alliance party ID Effective Begin Date Effective End Date [employer] MEDICARE Medicare Part B [id number] Unknown [facility] Medicare Part B [id number] Un known Family history Father Diagnosis Age At Onset Diabetes mellitus Type 2 Unknown Myocardial infarction Unknown Brother Diagnosis Age At Onset Diabetes mellitus Type 2 Unknown Mother Diagnosis Age At Onset Osteoarthritis Unknown Cerebrovascular disease Unknown Social History Social History Element Codes Description Effective Dates Tobacco history SNOMED CT: 646349172 Never smoker 12/21/2014 Marital status Unknown 07/30/2010 [...] Fill Instructions escitalopram 10 mg tablet RxNorm: 546309 1 Tablet(s) Oral QD 201911/28/2019 Active fenofibrate micronized 134 mg capsule RxNorm: 240183 TA KE 1 CAPSULE BY MOUTH ONCE DAILY FOR TRIGLYCERIDES 07/08/2019 10/05/2019 Active amlodipine 5 mg tablet RxNorm: 660745 TAKE 1 TABLET BY MOUTH ON CE DAILY 06/16/2019 09/13/2019 Active metformin ER 500 mg tablet,extended release 24 hr RxNorm: 86 0975 TAKE 1 TABLET BY MOUTH ONCE DAILY 06/10/2019 09/07/2019 Active propranolol ER 80 mg capsule,24 hr,extended release RxNorm: 246686 TAKE 1 CAPSULE BY MOUTH ONCE DAILY 06/10/2019 09/07/2019 Active Vitamin D3 25 mcg (1,000 unit) capsule RxNorm: 905492 1 Capsule(s) Oral two times a day 06/02/2019 No Stop Date Active turmeric 400 mg capsule RxNorm: 1 Capsule(s) Oral QD 06/02/2019 No Stop Date Active Fish Oil 120 mg-180 mg-500 mg capsule RxNorm: 2 Capsule(s) Ora l QD 06/02/2019 No Stop Date Active 16.2 mg-0.1037 mg-0.0194 mg tablet RxNorm: 7349585 1 Tablet(s) Oral four times a day as needed abdominal pain/diarrhea 06/02/2019 No Stop D ate Active fenofibrate micronized 134 mg capsule RxNorm: 749810 1 Capsule(s) Oral QD for triglycerides 04/14/2019 07/07/2019 Inactive amlodipine 5 mg tablet RxNorm: 761460 TAKE 1 TABLET BY MOUTH ON CE DAILY 03/22/2019 06/15/2019 Inactive metformin ER 500 mg tablet,extended release 24 hr RxNorm: 86 0975 TAKE 1 TABLET BY MOUTH ONCE DAILY 03/15/2019 06/09/2019 Inactive propranolol ER 80 mg capsule,24 hr,extended release RxNorm: 354868 TAKE 1 CAPSULE BY MOUTH ONCE DAILY 03/15/2019 06/09/2019 Inactive amlodipine 5 mg tablet RxNorm: 039827 1 Tablet(s) PO QD 12/27/2018 Inactive fenofibrate micronized 134 mg capsule RxNorm: 829450 TA KE 1 CAPSULE BY MOUTH ONCE DAILY FOR TRIGLYCERIDES 10/11/2018 04/13/2019 Inactive amlodipine 5 mg tablet RxNorm: 142635 1 Tablet(s) PO QD 09/30/2018 Inactive metformin ER 500 mg tablet,extended release 24 hr RxNorm: 86 0975 TAKE 1 TABLET BY MOUTH ONCE DAILY 09/21/2018 03/14/2019 Inactive propranolol ER 80 mg capsule,24 hr,extended release RxNorm: 978228 TAKE 1 CAPSULE BY MOUTH ONCE DAILY 09/21/2018 03/14/2019 Inactive amlodipine 5 mg tablet RxNorm: 729563 1 Tablet(s) PO QD 08/25/2018 Inactive amlodipine 5 mg tablet RxNorm: 295894 1 Tablet(s) PO QD 08/25/2018 Inactive lisinopril 40 mg tablet RxNorm: 463220 TAKE 1 TABLET BY MOUTH O NCE DAILY 07/21/2018 08/24/2018 Inactive fenofibrate micronized 134 mg capsule RxNorm: 199824 TA KE 1 CAPSULE BY MOUTH ONCE DAILY FOR TRIGLYCERIDES 07/12/2018 10/10/2018 Inactive propranolol ER 80 mg capsule,24 hr,extended release RxNorm: 613793 TAKE 1 CAPSULE BY MOUTH ONCE DAILY 06/21/2018 09/20/2018 Inactive lisinopril 40 mg tablet RxNorm: 989665 TAKE 1 TABLET BY MOUTH O NCE DAILY 04/26/2018 07/20/2018 Inactive metformin ER 500 mg tablet,extended release 24 hr RxNorm: 923095 1 Tablet(s) QD 03/31/2018 09/20/2018 Inactive lisinopril 40 mg tablet RxNorm: 356109 TAKE 1 TABLET BY MOUTH O NCE DAILY 01/28/2018 04/25/2018 Inactive Vitamin D3 5,000 unit tablet RxNorm: 995892 1 Tablet(s) PO QD 01/1908/18/2018 Inactive fenofibrate micronized 134 mg capsule RxNorm: 106634 1 Capsule(s) PO QD for triglycerides 01/19/2018 07/11/2018 Inactive metformin ER 500 mg tablet,extended release 24 hr RxNorm: 191108 1 Tablet(s) QD 12/31/2017 03/30/2018 Inactive metformin ER 500 mg tablet,extended release 24 hr RxNorm: 569773 Tablet(s) 12/30/2017 12/30/2017 Inactive propranolol ER 80 mg capsule,24 hr,extended release RxNorm: 100425 1 Capsule(s) PO QD 12/17/2017 06/14/2018 Inactive metformin ER 500 mg tablet,extended release 24 hr RxNorm: 86 0975 1 Tablet(s) PO QD DUE FOR LABS AND APPT 12/02/2017 12/30/2017 Inactive Crestor 10 mg tablet RxNorm: 145134 TAKE ONE TABLET BY MOUTH ON CE DAILY 11/01/2017 01/18/2018 Inactive lisinopril 40 mg tablet RxNorm: 204154 TAKE ONE TABLET BY MOUTH ONCE DAILY [...] ER 80 mg capsule,24 hr,extended release RxNorm: 400816 1 Capsule(s) PO QD DUE FOR APPT 09/08/2017 12/17/2017 Inactive Crestor 10 mg tablet RxNorm: 926496 1 Tablet(s) PO QD T CHELSI ONE TABLET BY MOUTH DAILY 03/11/2017 09/06/2017 Inactive propranolol ER 80 mg capsule,24 hr,extended release RxNorm: 710550 1 Capsule(s) PO QD TAKE ONE CAPSULE BY MOUTH DAILY - REPLACES AMLODOPINE 03/11/2017 09/08/2017 Inactive metformin ER 500 mg tablet,extended release 24 hr RxNorm: 86 0975 1 Tablet(s) PO QD 03/11/2017 09/08/2017 Inactive lisinopril 40 mg tablet RxNorm: 163554 1 Tablet(s) PO QD 03/11/2017 0 09/06/2017 Inactive lisinopril 40 mg tablet RxNorm: 493477 1 Tablet(s) PO QD 02/16/2017 1 05/11/2016 Inactive metformin ER 500 mg tablet,extended release 24 hr RxNorm: 86 0975 1 Tablet(s) PO QD Due for labs and follow up before further refills 02/16/2017 017 Inactive propranolol ER 80 mg capsule,24 hr,extended release RxNorm: 680791 Capsule(s) TAKE ONE CAPSULE BY MOUTH DAILY - REPLACES AMLODOPINE 11/19/20162016 Inactive lisinopril 40 mg tablet RxNorm: 997361 1 Tablet(s) PO QD 11/17/2016 1 04/18/2016 Inactive metformin ER 500 mg tablet,extended release 24 hr RxNorm: 86 0975 1 Tablet(s) PO QD 11/17/2016 02/16/2017 Inactive lisinopril 40 mg tablet RxNorm: 597268 1 Tablet(s) PO Q D TAKE ONE TABLET BY MOUTH DAILY 08/19/2016 11/17/2016 Inactive metformin ER 500 mg tablet,extended release 24 hr RxNorm: 86 0975 Tablet(s) TAKE ONE TABLET BY MOUTH DAILY 08/19/2016 11/16/2016 Inactive propranolol ER 80 mg capsule,24 hr,extended release RxNorm: 945394 Capsule(s) TAKE ONE CAPSULE BY MOUTH DAILY - REPLACES AMLODOPINE 08/19/20162016 Inactive Crestor 10 mg tablet RxNorm: 970768 TAKE ONE TABLET BY MOUTH DAILY 06/16/2016 03/10/2017 Inactive lisinopril 40 mg tablet RxNorm: 054444 1 Tablet(s) PO Q D TAKE ONE TABLET BY MOUTH DAILY 05/23/2016 08/18/2016 Inactive metformin ER 500 mg tablet,extended release 24 hr RxNorm: 86 0975 TAKE ONE TABLET BY MOUTH DAILY 05/23/2016 08/19/2016 Inactive propranolol ER 80 mg capsule,24 hr,extended release RxNorm: 470856 TAKE ONE CAPSULE BY MOUTH DAILY - REPLACES AMLODOPINE 05/23/2016 08/19/[address] [facility] Crestor 10 mg tablet RxNorm: 109060 TAKE ONE TABLET BY MOUTH DAILY 03/31/2016 06/15/2016 Inactive metformin ER 500 mg tablet,extended release 24 hr RxNorm: 86 0975 TAKE ONE TABLET BY MOUTH DAILY 02/19/2016 05/22/2016 Inactive propranolol ER 80 mg capsule,24 hr,extended release RxNorm: 934329 TAKE ONE CAPSULE BY MOUTH DAILY - REPLACES AMLODOPINE 11/23/2015 05/20/2016 [facility] metformin ER 500 mg tablet,extended release 24 hr RxNorm: 86 0975 TAKE ONE TABLET BY MOUTH DAILY 11/08/2015 02/05/2016 Inactive Bactroban Nasal 2 % ointment RxNorm: 768560 Apply topic ally to affected area twice daily 09/10/2015 03/09/2016 Inactive Vibramycin 100 mg capsule RxNorm: 755456 1 Capsule(s) PO BID 201509/23/2015 Inactive lisinopril 40 mg tablet RxNorm: 642018 1 Tablet(s) PO Q D TAKE ONE TABLET BY MOUTH DAILY 08/27/2015 02/22/2016 Inactive metformin ER 500 mg tablet,extended release 24 hr RxNorm: 86 0975 TAKE ONE TABLET BY MOUTH DAILY 08/06/2015 11/03/2015 Inactive Levsin/SL 0.125 mg sublingual tablet RxNorm: 9450375 1 T ablet(s) SL Q4H as needed for stomach cramps 06/29/2015 07/03/2015 Inactive lisinopril 40 mg tablet RxNorm: 759558 Tablet(s) TAKE ONE TABLE T BY MOUTH DAILY 06/07/2015 08/26/2015 Inactive propranolol ER 80 mg capsule,24 hr,extended release RxNorm: 951361 TAKE ONE CAPSULE BY MOUTH DAILY - REPLACES AMLODOPINE 05/30/2015 11/22/2015 [facility] metformin ER 500 mg tablet,extended release 24 hr RxNorm: 86 0975 1 Tablet(s) PO QD 05/10/2015 08/05/2015 Inactive Crestor 10 mg tablet RxNorm: 272059 TAKE ONE TABLET BY MOUTH DAILY 04/18/2015 10/14/2015 Inactive metformin ER 500 mg tablet,extended release 24 hr RxNorm: 86 0975 TAKE ONE TABLET BY MOUTH DAILY 02/07/2015 05/10/2015 Inactive sildenafil 20 mg tablet RxNorm: 010762 1 Tablet(s) PO QD 01/17/2015 1 04/17/2014 Inactive propranolol ER 80 mg capsule,24 hr,extended release RxNorm: 733390 1 Capsule(s) PO QD replaces amlodopine 11/28/2014 05/26/2015 Inactive [[facility] FOR UNINSURED PATIENTS -- BIN:[id number], PCN: [id number], Group: [id number], ID# [id number], Process claim through eReceipts, for questions: . THIS IS NOT INSURANCE.] lisinopril 40 mg tablet RxNorm: 459302 TAKE ONE TABLET BY MOUTH DAILY 11/16/2014 06/07/2015 Inactive lisinopril 40 mg tablet RxNorm: 274075 1 Tablet(s) PO QD 08/21/2014 0 11/15/2014 Inactive [AttnRPh: Saving apply/adjudicate RxGRP: [id number] RxBIN:[id number] RxPCN: ID#:[id number]] lisinopril 40 mg tablet RxNorm: 379672 1 Tablet(s) PO Q D NEEDS SEEN FOR APPOINTMENT 07/14/2014 08/21/2014 Inactive [AttnRPh: Saving apply/adjudicate RxGRP:SG20 RxBIN:[id number] RxPCN: ID#:[id number]] Crestor 10 mg tablet RxNorm: 150091 TAKE ONE TABLET BY MOUTH EV EILEEN DAY 07/06/2014 01/01/2015 Inactive metformin ER 500 mg tablet,extended release 24 hr RxNorm: 86 0975 1 Tablet(s) QD TAKE ONE TABLET BY MOUTH ONCE A DAY 06/09/2014 12/05/2014 Inactive propranolol ER 80 mg capsule,24 hr,extended release RxNorm: 111248 1 Capsule(s) PO QD replaces amlodopine 06/05/2014 11/28/2014 Inactive [[facility] FOR UNINSURED PATIENTS -- BIN:[id number], PCN: [id number], Group: [id number], ID# [id number], Process claim through eReceipts, for questions: . THIS IS NOT INSURANCE.] propranolol ER 80 mg capsule,24 hr,extended release RxNorm: 424283 1 Capsule(s) PO QD replaces amlodopine 03/07/2014 06/05/2014 Inactive [[facility] FOR UNINSURED PATIENTS -- BIN:[id number], PCN: [id number], Group: [id number], ID# [id number], Process claim through eReceipts, for questions: . THIS IS NOT INSURANCE.] metformin ER 500 mg tablet,extended release 24 hr RxNorm: 86 0975 TAKE ONE TABLET BY MOUTH ONCE A DAY 12/15/2013 06/09/2014 Inactive propranolol ER 80 mg capsule,24 hr,extended release RxNorm: 015457 1 Capsule(s) PO QD replaces amlodopine 12/09/2013 03/07/2014 Inactive [[facility] FOR UNINSURED PATIENTS -- BIN:400442, PCN: [id number], Group: [id number], ID# [id number], Process claim through eReceipts, for questions: . THIS IS NOT INSURANCE.] acyclovir 800 mg tablet RxNorm: 667129 1 Tablet(s) PO QID 09/23/2013 09/29/2013 Inactive gabapentin 300 mg capsule RxNorm: 777860 1 Capsule(s) PO BID 201310/07/2013 Inactive metformin ER 500 mg tablet,extended release 24 hr RxNorm: 86 0975 1 Tablet(s) PO QD 09/19/2013 12/14/2013 Inactive propranolol ER 80 mg capsule,24 hr,extended release RxNorm: 178831 1 Capsule(s) PO QD replaces amlodopine 09/15/2013 12/09/2013 Inactive metformin ER 500 mg 24 hr tablet,extended release RxNorm: 86 0975 1 Tablet(s) PO QD 09/15/2013 09/18/2013 Inactive lisinopril 40 mg tablet RxNorm: 887595 1 Tablet(s) PO QD 07/19/2013 0 07/14/2014 Inactive Crestor 10 mg tablet RxNorm: 521306 Tablet(s) PO TAKE O NE TABLET BY MOUTH EVERY DAY 07/12/2013 07/05/2014 Inactive propranolol ER 80 mg capsule,24 hr,extended release RxNorm: 751840 1 Capsule(s) PO QD replaces amlodopine 06/20/2013 09/15/2013 Inactive triamcinolone acetonide 0.1 % topical ointment RxNorm: 54030 36 Application TOP BID 06/20/2013 06/26/2013 Inactive Crestor 10 mg tablet RxNorm: 324307 1 Tablet(s) PO QD 04/18/201310/2013 Inactive Viagra 100 mg tablet RxNorm: 122256 1 Tablet(s) PO as directed 01/0508/18/2018 Inactive TAKE ONE TABLET BY MOUTH DIRECTED Crestor 10 mg tablet RxNorm: 160693 1 Tablet(s) PO QD 01/17/201304/06 Inactive metformin ER 500 mg tablet,extended release 24 hr RxNorm: 86 0975 1 Tablet(s) PO QD TAKE ONE TABLET BY MOUTH EVERY DAY 12/23/2012 09/15/2013 Inactive triamcinolone acetonide 0.1 % topical ointment RxNorm: 37492 36 Application TOP BID 08/27/2012 09/02/2012 Inactive ketoconazole 2 % topical cream RxNorm: 130566 1 Application TOP QAM 08/27/2012 09/02/2012 Inactive lisinopril 40 mg tablet RxNorm: 680613 1 Tablet(s) PO QD 07/21/2012 0 07/15/2013 Inactive Crestor 10 mg tablet RxNorm: 456657 1 Tablet(s) PO QD 07/21/201210/04 Inactive amlodipine 10 mg tablet RxNorm: 586584 1 Tablet(s) PO QHS 07/21/2012 07/15/2013 Inactive metformin ER 500 mg tablet,extended release 24 hr RxNorm: 86 0977 Tablet(s) PO TAKE ONE TABLET BY MOUTH EVERY DAY 03/31/2012 12/22/2012 Inactive lisinopril 40 mg tablet RxNorm: 043506 1 Tablet(s) PO QD 07/29/2011 0 07/20/2012 Inactive amlodipine 10 mg tablet RxNorm: 506008 1 Tablet(s) PO QHS 07/29/2011 07/20/2012 Inactive amlodipine 10 mg Tab RxNorm: 388517 1 Tablet(s) PO QHS 07/29/2011 Inactive Viagra 100 mg tablet RxNorm: 378776 1 Tablet(s) PO as directed 07/0601/24/2013 Inactive TAKE ONE TABLET BY MOUTH DIRECTED Crestor 10 mg tablet RxNorm: 646337 1 Tablet(s) PO QD 07/29/201107/05 Inactive Norvasc 5 mg Tab RxNorm: 306472 1 Tablet(s) PO QD 07/16/2011 07/28/19 12 Inactive Norvasc 5 mg Tab RxNorm: 007515 1 Tablet(s) PO QD 06/26/2011 07/15/19 12 Inactive lisinopril 40 mg Tab RxNorm: 214108 1 Tablet(s) PO QD 05/13/201107/06 Inactive metformin ER 500 mg tablet,extended release 24 hr RxNorm: 86 0977 1 Tablet(s) PO QD 03/18/2011 07/28/2011 Inactive Crestor 10 mg Tab RxNorm: 409174 1 Tablet(s) PO QHS 01/27/20112011 Inactive metformin ER 500 mg 24 hr Tab RxNorm: 711112 1 Tablet(s) PO QD 11/0403/17/2011 Inactive Viagra 100 mg Tab RxNorm: 768730 Tablet(s) PO TAKE ON E TABLET BY MOUTH DIRECTED 08/26/2010 07/28/2011 Inactive metformin ER 500 mg 24 hr Tab RxNorm: 000169 1 Tablet(s) PO QD 07/0611/18/2010 Inactive Crestor 10 mg Tab RxNorm: 086737 1 Tablet(s) PO QHS 07/30/20102010 Inactive Crestor 10 mg Tab RxNorm: 970992 1 Tablet(s) PO QHS 05/20/20102010 Inactive Wellbutrin SR 150 mg Tab RxNorm: 001884 1 Tablet(s) PO QAM 04/24/19 11 07/22/2010 Inactive Multivitamin And Mineral tablet RxNorm: 1 Tablet(s) PO QD No Start Date Active FreeStyle Lite Strips RxNorm: 1 Unit Dose Miscel laneous AC & HS check blood sugar AC and HS No Start Date Active Co Q-10 200 mg capsule RxNorm: 225270 1 Capsule(s) PO QD No Start Date Active lancets RxNorm: 1 Milliliter(s) Miscellaneous AC & HS No Start Robert e Active Vitamin D3 4,000 unit capsule RxNorm: 3068057 1 Capsule(s) PO QD No Start Date 07/08/2016 Inactive Fish Oil 360 mg-1,200 mg capsule RxNorm: 348978 2 Capsule(s) PO QD No Start Date 01/30/2019 Inactive hydrocodone 5 mg-acetaminophen 325 mg tablet RxNorm: 909099 1 Tablet(s) PO Q4H as needed for severe pain No Start Date 12/30/2015 Inactive Xanax 0.25 mg tablet RxNorm: 168243 1/2 Tablet(s) PO PRN for se andrea stress No Start Date 07/08/2016 Inactive lisinopril 40 mg Tab RxNorm: 265588 1 Tablet(s) PO QD No Start Date 0 05/12/2011 Inactive Fish Oil 1,000 mg capsule RxNorm: 1 Capsule(s) PO QD No Start Date 09/18/2014 Inactive naproxen 500 mg Tab RxNorm: 107360 1 Tablet(s) PO BID No Start Date 0 07/28/2011 Inactive aspirin 81 mg tablet RxNorm: 582663 1 Tablet(s) PO QD No Start Date 0 05/09/2018 Inactive Crestor 10 mg Tab RxNorm: 111560 1 Tablet(s) PO QD No Start Date 07/06 Inactive Crestor 5 mg tablet RxNorm: 335399 1 Tablet(s) PO QD No Start Date Inactive Fish Oil Oral RxNorm: Oral No Start Date 09/18/2014 Inactive Viagra 100 mg Tab RxNorm: 961803 1 Tablet(s) PO as directed No Star [...] Code Item Item Code Result Date [facility] Location GLYCOSYLATED HEMOGLOBIN TEST 40178 Hgb A1c 77424-6 6.6 % 0 08/24/2019 Unknown MEAN GLUC 4140839 Calc Mean Gluc 143 mg/dL 08/24/2019 Unkn own COMPREHENSIVE METABOLIC 32382 AST 24 U/L 2019 Unknown COMPREHENSIVE METABOLIC 42469 ALT 32 U/L 2019 Unknown COMPREHENSIVE METABOLIC 33486 BUN 14 mg/dL 2019 Unknown COMPREHENSIVE METABOLIC 60148 ALBUMIN 4.7 g/dL 2019 Unknown COMPREHENSIVE METABOLIC 56634 CHLORIDE 103 mmol/L 08/23 Unknown COMPREHENSIVE METABOLIC 24801 Bili Total 0.5 mg/dL 08/23 Unknown COMPREHENSIVE METABOLIC 00035 ALK PHOS 57 U/L 2019 Unknown COMPREHENSIVE METABOLIC 44106 SODIUM 140 mmol/L 08/23 Unknown COMPREHENSIVE METABOLIC 59320 CREATININE 1.20 mg/dL 08/05 Unknown COMPREHENSIVE METABOLIC 62993 CALCIUM 9.9 mg/dL 2019 Unknown COMPREHENSIVE METABOLIC 66392 POTASSIUM 4.4 mmol/L 08/23 Unknown COMPREHENSIVE METABOLIC 52840 Total Protein 6.9 g/dL Unknown COMPREHENSIVE METABOLIC 49844 Glucose 123 mg/dL 2019 Unknown COMPREHENSIVE METABOLIC 69527 Bicarbonate 25 mmol/L 08/05 Unknown COMPREHENSIVE METABOLIC 82168 AGAP 12 mmol/L 2019 Unknown GFR CALC 8410865 GFR Non Afr Amr 60 mL/min 08/24/2019 Unk nown GFR CALC 9385032 GFR Afr Amr >60 mL/min 08/24/2019 Unknow n GLYCOSYLATED HEMOGLOBIN TEST 55787 Hgb A1c 84144-3 6.7 % 0 05/24/2019 Unknown COMPREHENSIVE METABOLIC 24623 AST 21 U/L 2019 Unknown COMPREHENSIVE METABOLIC 91296 ALT 26 U/L 2019 Unknown COMPREHENSIVE METABOLIC 81739 BUN 14 mg/dL 2019 Unknown COMPREHENSIVE METABOLIC 50758 ALBUMIN 4.4 g/dL 2019 Unknown COMPREHENSIVE METABOLIC 27097 CHLORIDE 102 mmol/L 05/24 Unknown COMPREHENSIVE METABOLIC 85086 Bili Total 0.4 mg/dL 05/24 Unknown COMPREHENSIVE METABOLIC 77165 ALK PHOS 55 U/L 2019 Unknown COMPREHENSIVE METABOLIC 04237 SODIUM 139 mmol/L 05/24 Unknown COMPREHENSIVE METABOLIC 52418 CREATININE 1.28 mg/dL 05/07 Unknown COMPREHENSIVE METABOLIC 43289 CALCIUM 9.7 mg/dL 2019 Unknown COMPREHENSIVE METABOLIC 80213 POTASSIUM 4.7 mmol/L 05/24 Unknown COMPREHENSIVE METABOLIC 15809 Total Protein 6.8 g/dL Unknown COMPREHENSIVE METABOLIC 20862 Glucose 130 mg/dL 2019 Unknown COMPREHENSIVE METABOLIC 75908 Bicarbonate 29 mmol/L 05/07 Unknown COMPREHENSIVE METABOLIC 58263 AGAP 8 mmol/L 2019 Unknown MEAN GLUC 6027590 Calc Mean Gluc 146 mg/dL 05/24/2019 Unkn own GFR CALC 3795442 GFR Non Afr Amr 56 mL/min 05/24/2019 Unk nown GFR CALC 9240250 GFR Afr Amr >60 mL/min 05/24/2019 Unknow n MEAN GLUC 8952906 Calc Mean Gluc 140 mg/dL 01/26/2019 Unkn own GLYCOSYLATED HEMOGLOBIN TEST 42319 Hgb A1c 41892-8 6.5 % 1 Unknown COMPREHENSIVE METABOLIC 49056 AST 17 U/L 2018 Unknown COMPREHENSIVE METABOLIC 56871 ALT 19 U/L 2018 Unknown COMPREHENSIVE METABOLIC 49718 BUN 19 mg/dL 2018 Unknown COMPREHENSIVE METABOLIC 71267 ALBUMIN 4.3 g/dL 2018 Unknown COMPREHENSIVE METABOLIC 52312 CHLORIDE 103 mmol/L 01/26 Unknown COMPREHENSIVE METABOLIC 33319 Bili Total 0.6 mg/dL 01/26 Unknown COMPREHENSIVE METABOLIC 37640 ALK PHOS 60 U/L 2018 Unknown COMPREHENSIVE METABOLIC 87399 SODIUM 140 mmol/L 01/26 Unknown COMPREHENSIVE METABOLIC 05392 CREATININE 1.21 mg/dL 01/05 Unknown COMPREHENSIVE METABOLIC 31584 CALCIUM 9.6 mg/dL 2018 Unknown COMPREHENSIVE METABOLIC 68503 POTASSIUM 4.5 mmol/L 01/26 Unknown COMPREHENSIVE METABOLIC 83050 Total Protein 6.7 g/dL Unknown COMPREHENSIVE METABOLIC 28442 Glucose 111 mg/dL 2018 Unknown COMPREHENSIVE METABOLIC 88419 Bicarbonate 28 mmol/L 01/05 Unknown COMPREHENSIVE METABOLIC 10522 AGAP 9 mmol/L 2018 Unknown COMPLETE BLOOD COUNT 7564715 WBC 10.7 10e9/L 019 Unknown COMPLETE BLOOD COUNT 4846258 RBC 4.38 10e12/L 2018 Unknown COMPLETE BLOOD COUNT 3851093 HEMOGLOBIN 13.7 g/dL 01/27/20 19 Unknown COMPLETE BLOOD COUNT 1426027 HEMATOCRIT 42.0 % 01/27/20 19 Unknown COMPLETE BLOOD COUNT 6268770 MCV 95.9 fL 9 Unknown COMPLETE BLOOD COUNT 7913112 MCH 31.3 pg 9 Unknown COMPLETE BLOOD COUNT 9153127 MCHC 32.6 g/dL 9 Unknown COMPLETE BLOOD COUNT 2828317 PLATELET COUNT 232 10e9/L Unknown COMPLETE BLOOD COUNT 1792546 Mean Plt Volume 11.4 fL Unknown COMPLETE BLOOD COUNT 2833265 Neut Auto 68.7 % 9 Unknown COMPLETE BLOOD COUNT [id number] Lymph Auto 21.2 % 01/27/20 19 Unknown COMPLETE BLOOD COUNT 3708828 [place] Auto 8.1 % 9 Unknown COMPLETE BLOOD COUNT 3574335 RDW 14.1 % 9 Unknown COMPLETE BLOOD COUNT 1536804 Eos Auto 1.8 % 9 Unknown COMPLETE BLOOD COUNT 8817217 Baso Auto 0.2 % 9 Unknown COMPLETE BLOOD COUNT 3218451 Neutrophil Abs 7.35 10e9/L Unknown COMPLETE BLOOD COUNT 5807629 Lymphocyte Abs 2.27 10e9/L Unknown COMPLETE BLOOD COUNT 8661741 Monocyte Abs 0.87 10e9/L 01/05 Unknown COMPLETE BLOOD COUNT 7131967 Eosinophil Abs 0.19 10e9/L Unknown COMPLETE BLOOD COUNT 2876844 RDW-SD 47.7 fL 9 Unknown COMPLETE BLOOD COUNT [id number] Basophil Abs 0.02 10e9/L 01/05 Unknown GFR CALC 0884818 GFR Non Afr Amr 59 mL/min 01/26/2019 Unk nown GFR CALC [id number] GFR Afr Amr >60 mL/min 01/26/2019 Unknow n LIPID GROUP 15996 Cholesterol 215 mg/dL 01/26/2019 Unkno wn LIPID GROUP 06316 Triglyceride 221 mg/dL 01/26/2019 Unkn own LIPID GROUP 88744 HDL CHOLESTEROL 41 mg/dL 01/26/2019 U nknown LIPID GROUP 33557 Chol/HDL Ratio 5.24 ratio 01/26/2019 U nknown LIPID GROUP 47378 NON-HDL Chol 174 mg/dL 01/26/2019 Unkn own LIPID GROUP 21673 LDL Cholesterol 130 mg/dL 01/26/2019 U [place] [address] Glucose 104 mg/dL 09/30 [place] [address] CREATININE 1.18 mg/dL [place] [address] BUN 19 mg/dL 09/30 [place] [address] SODIUM 139 mmol/L 09/05 [place] [address] POTASSIUM 4.1 mmol/L 09/05 [place] [address] CHLORIDE 105 mmol/L 09/05 [place] [address] Bicarbonate 26 mmol/L [place] [address] AGAP 8 mmol/L 09/30 [place] [address] CALCIUM 9.3 mg/dL 09/30 Unknown GFR CALC 4009098 GFR Non Afr Amr >60 mL/min 09/30/2018 Un known GFR CALC 8977416 GFR Afr Amr >60 mL/min 09/30/2018 Unknow n MICROALBUMIN URINE RANDOM 52995 U Microalbumin <2.0 mg/L 08/19/2018 Unknown MICROALBUMIN URINE RANDOM 46824 U Creatinine 66 mg/dL 0 08/19/2018 Unknown MICROALBUMIN URINE RANDOM 18158 ALB/CR Ratio <3.0 mg/gCR 08/19/2018 Unknown COMPREHENSIVE METABOLIC 98109 AST 21 U/L 2018 Unknown COMPREHENSIVE METABOLIC 79024 ALT 20 U/L 2018 Unknown COMPREHENSIVE METABOLIC 75571 BUN 31 mg/dL 2018 Unknown COMPREHENSIVE METABOLIC 68335 ALBUMIN 4.4 g/dL 2018 Unknown COMPREHENSIVE METABOLIC 11212 CHLORIDE 105 mmol/L 08/16 Unknown COMPREHENSIVE METABOLIC 23596 Bili Total 0.5 mg/dL 08/16 Unknown COMPREHENSIVE METABOLIC 99090 ALK PHOS 40 U/L 2018 Unknown COMPREHENSIVE METABOLIC 06764 SODIUM 140 mmol/L 08/16 Unknown COMPREHENSIVE METABOLIC 57718 CREATININE 1.45 mg/dL 08/04 Unknown COMPREHENSIVE METABOLIC 16572 CALCIUM 9.8 mg/dL 2018 Unknown COMPREHENSIVE METABOLIC 60535 POTASSIUM 5.1 mmol/L 08/16 Unknown COMPREHENSIVE METABOLIC 63366 Total Protein 6.9 g/dL Unknown COMPREHENSIVE METABOLIC 47617 Glucose 110 mg/dL 2018 Unknown COMPREHENSIVE METABOLIC 21125 Bicarbonate 25 mmol/L 08/04 Unknown COMPREHENSIVE METABOLIC 26615 AGAP 10 mmol/L 2018 Unknown GFR CALC 3177687 GFR Non Afr Amr 48 mL/min 08/16/2018 Unk nown GFR CALC 5882520 GFR Afr Amr 58 mL/min 08/16/2018 Unknown GLYCOSYLATED HEMOGLOBIN TEST 65348 Hgb A1c 89979-6 5.9 % 0 08/16/2018 Unknown LIPID GROUP 60215 Cholesterol 226 mg/dL 08/16/2018 Unkno wn LIPID GROUP 94627 Triglyceride 335 mg/dL 08/16/2018 Unkn own LIPID GROUP 53559 HDL CHOLESTEROL 32 mg/dL 08/16/2018 U nknown LIPID GROUP 95978 Chol/HDL Ratio 7.06 ratio 08/16/2018 U nknown LIPID GROUP 00084 NON-HDL Chol 194 mg/dL 08/16/2018 Unkn own LIPID GROUP 41717 LDL Cholesterol 127 mg/dL 08/16/2018 U nknown THYROID STIMULATING HORMONE 54834 TSH 2.475 uIU/mL 08/16/2018 Unknown COMPLETE BLOOD COUNT 9145813 WBC 7.5 10e9/L 08/17/19 19 Unknown COMPLETE BLOOD COUNT 7100932 RBC 4.09 10e12/L 2018 Unknown COMPLETE BLOOD COUNT [id number] HEMOGLOBIN 12.9 g/dL 08/17/19 19 Unknown COMPLETE BLOOD COUNT 8293956 HEMATOCRIT 40.0 % 08/17/19 19 Unknown COMPLETE BLOOD COUNT 0148518 MCV 97.8 fL 9 Unknown COMPLETE BLOOD COUNT 1369322 MCH 31.5 pg 9 Unknown COMPLETE BLOOD COUNT 9998795 MCHC 32.3 g/dL 9 Unknown COMPLETE BLOOD COUNT 9896574 PLATELET COUNT 258 10e9/L Unknown COMPLETE BLOOD COUNT 1722106 Mean Plt Volume 11.4 fL Unknown COMPLETE BLOOD COUNT [id number] Neut Auto 62.9 % 9 Unknown COMPLETE BLOOD COUNT [id number] Lymph Auto 27.3 % 08/17/19 19 Unknown COMPLETE BLOOD COUNT [id number] [place] Auto 8.2 % 9 Unknown COMPLETE BLOOD COUNT 1110812 RDW 13.3 % 9 Unknown COMPLETE BLOOD COUNT [id number] Eos Auto 1.5 % 9 Unknown COMPLETE BLOOD COUNT [id number] Baso Auto 0.1 % 9 Unknown COMPLETE BLOOD COUNT [id number] Neutrophil Abs 4.72 10e9/L Unknown COMPLETE BLOOD COUNT [id number] Lymphocyte Abs 2.05 10e9/L Unknown COMPLETE BLOOD COUNT [id number] Monocyte Abs 0.62 10e9/L 08/04 Unknown COMPLETE BLOOD COUNT [id number] Eosinophil Abs 0.11 10e9/L Unknown COMPLETE BLOOD COUNT [id number] RDW-SD 46.7 fL 9 Unknown COMPLETE BLOOD COUNT [id number] Basophil Abs 0.01 10e9/L 08/04 Unknown MEAN GLUC 1013126 Calc Mean Gluc 123 mg/dL 08/16/2018 Unkn own L[facility] 63092 Cholesterol 212 mg/dL 05/05/2018 [facility]kno wn [facility] 46620 Triglyceride 271 mg/dL 05/05/2018 Unkn own [facility] 17500 HDL CHOLESTEROL 38 mg/dL 05/05/2018 U nknown LIPID GROUP 22942 Chol/HDL Ratio 5.58 ratio 05/05/2018 U nknown LIP[facility] GROUP 75511 NON-HDL Chol 174 mg/dL 05/05/2018 Unkn own [facility] 98175 LDL Cholesterol 120 mg/dL 05/05/2018 U nknown GFR CALC 8820757 GFR Non Afr Amr 49 mL/min 05/05/2018 Unk nown GFR CALC 2146392 GFR Afr Amr 59 mL/min 05/05/2018 Unknown GLYCOSYLATED HEMOGLOBIN TEST 48126 Hgb A1c 62652-2 6.0 % 0 05/05/2018 Unknown MEAN GLUC 3230102 Calc Mean Gluc 126 mg/dL 05/05/2018 Unkn own COMPREHENSIVE METABOLIC 72220 AST 18 U/L 2018 Unknown COMPREHENSIVE METABOLIC 68381 ALT 23 U/L 2018 Unknown COMPREHENSIVE METABOLIC 98310 BUN 30 mg/dL 2018 Unknown COMPREHENSIVE METABOLIC 13278 ALBUMIN 4.3 g/dL 2018 Unknown COMPREHENSIVE METABOLIC 71032 CHLORIDE 106 mmol/L 05/05 Unknown COMPREHENSIVE METABOLIC 18235 Bili Total 0.4 mg/dL 05/05 Unknown COMPREHENSIVE METABOLIC 50572 ALK PHOS 39 U/L 2018 Unknown COMPREHENSIVE METABOLIC 16508 SODIUM 139 mmol/L 05/05 Unknown COMPREHENSIVE METABOLIC 64807 CREATININE 1.44 mg/dL 04/08 Unknown COMPREHENSIVE METABOLIC 46915 CALCIUM 9.6 mg/dL 2018 Unknown COMPREHENSIVE METABOLIC 13725 POTASSIUM 4.7 mmol/L 05/05 Unknown COMPREHENSIVE METABOLIC 88617 Total Protein 6.6 g/dL Unknown COMPREHENSIVE METABOLIC 10395 Glucose 112 mg/dL 2018 Unknown COMPREHENSIVE METABOLIC 27389 Bicarbonate 28 mmol/L 04/08 Unknown COMPREHENSIVE METABOLIC 17908 AGAP 5 mmol/L 2018 Unknown THYROID STIMULATING HORMONE 66041 TSH 3.725 uIU/mL 05/05/2018 Unknown COMPLETE BLOOD COUNT 1843995 WBC 8.2 10e9/L 05/05/19 19 Unknown COMPLETE BLOOD COUNT [id number] RBC 4.02 10e12/L 2018 Unknown COMPLETE BLOOD COUNT 6450173 HEMOGLOBIN 12.7 g/dL 05/05/19 19 Unknown COMPLETE BLOOD COUNT [id number] HEMATOCRIT 39.3 % 05/05/19 19 Unknown COMPLETE BLOOD COUNT [id number] MCV 97.8 fL 9 Unknown COMPLETE BLOOD COUNT [id number] MCH 31.6 pg 9 Unknown COMPLETE BLOOD COUNT 7078666 MCHC 32.3 g/dL 9 Unknown COMPLETE BLOOD COUNT 0818702 PLATELET COUNT 213 10e9/L Unknown COMPLETE BLOOD COUNT 2469944 Mean Plt Volume 11.7 fL Unknown COMPLETE BLOOD COUNT 7763632 Neut Auto 55.7 % 9 Unknown COMPLETE BLOOD COUNT [id number] Lymph Auto 33.2 % 05/05/19 19 Unknown COMPLETE BLOOD COUNT 4198116 [place] Auto 8.5 % 9 Unknown COMPLETE BLOOD COUNT 6825098 RDW 13.9 % 9 Unknown COMPLETE BLOOD COUNT 6234591 Eos Auto 2.4 % 9 Unknown COMPLETE BLOOD COUNT 1716301 Baso Auto 0.2 % 9 Unknown COMPLETE BLOOD COUNT [id number] Neutrophil Abs 4.57 10e9/L Unknown COMPLETE BLOOD COUNT [id number] Lymphocyte Abs 2.72 10e9/L Unknown COMPLETE BLOOD COUNT [id number] Monocyte Abs 0.70 10e9/L 04/08 Unknown COMPLETE BLOOD COUNT [id number] Eosinophil Abs 0.20 10e9/L Unknown COMPLETE BLOOD COUNT [id number] RDW-SD 48.8 fL 9 Unknown COMPLETE BLOOD COUNT [id number] Basophil Abs 0.02 10e9/L 04/08 Unknown MICROALBUMIN URINE RANDOM 70616 U Microalbumin 19.3 mg/L 01/19/2018 Unknown MICROALBUMIN URINE RANDOM 15096 U Creatinine 96 mg/dL 1 Unknown MICROALBUMIN URINE RANDOM 64375 ALB/CR Ratio 20.1 mg/gCR 01/19/2018 Unknown LIPID GROUP 36818 Cholesterol 173 mg/dL 01/13/2018 [facility] wn [facility] 51951 Triglyceride 386 mg/dL 01/13/2018 Unkn own L[facility] 34520 HDL CHOLESTEROL 37 mg/dL 01/13/2018 U nknown LIPID GROUP 95232 Chol/HDL Ratio 4.68 ratio 01/13/2018 U nknown LIP[facility] GROUP 22368 NON-HDL Chol 136 mg/dL 01/13/2018 Unkn own [facility] 83983 LDL Cholesterol 59 mg/dL 01/13/2018 U nknown COMPLETE BLOOD COUNT 4537602 WBC TNP:Client Request 01/13/2018 Unknown COMPLETE BLOOD COUNT [id number] RBC TNP:Client Request 01/13/2018 Unknown COMPLETE BLOOD COUNT 1265477 HEMOGLOBIN TNP:Client Request 01/13/2018 Unknown COMPLETE BLOOD COUNT 1559844 HEMATOCRIT TNP:Client Request 01/13/2018 Unknown COMPLETE BLOOD COUNT [id number] MCV TNP:Client Request 01/13/2018 Unknown COMPLETE BLOOD COUNT 4557282 MCH TNP:Client Request 01/13/2018 Unknown COMPLETE BLOOD COUNT 8465036 MCHC TNP:Client Request 01/13/2018 Unknown COMPLETE BLOOD COUNT [id number] PLATELET COUNT TNP:Client Req uest 01/13/2018 Unknown COMPLETE BLOOD COUNT 9950461 Mean Plt Volume TNP:Client Re quest 01/13/2018 Unknown COMPLETE BLOOD COUNT 7114738 Neut Auto TNP:Client Request 01/13/2018 Unknown COMPLETE BLOOD COUNT [id number] Lymph Auto TNP:Client Request 01/13/2018 Unknown COMPLETE BLOOD COUNT [id number] [place] Auto TNP:Client Request 01/13/2018 Unknown COMPLETE BLOOD COUNT 1134315 RDW TNP:Client Request 01/13/2018 Unknown COMPLETE BLOOD COUNT [id number] Eos Auto TNP:Client Request 01/13/2018 Unknown COMPLETE BLOOD COUNT 7065608 Baso Auto TNP:Client Request 01/13/2018 Unknown COMPLETE BLOOD COUNT [id number] Neutrophil Abs TNP:Client Req uest 01/13/2018 Unknown COMPLETE BLOOD COUNT [id number] Lymphocyte Abs TNP:Client Req uest 01/13/2018 Unknown COMPLETE BLOOD COUNT [id number] Monocyte Abs TNP:Client Reque st 01/13/2018 Unknown COMPLETE BLOOD COUNT [id number] Eosinophil Abs TNP:Client Req uest 01/13/2018 Unknown COMPLETE BLOOD COUNT [id number] RDW-SD TNP:Client Request 01/13/2018 Unknown COMPLETE BLOOD COUNT [id number] Basophil Abs TNP:Client Reque st 01/13/2018 Unknown GLYCOSYLATED HEMOGLOBIN TEST 16052 Hgb A1c 48731-0 6.2 % 1 Unknown THYROID STIMULATING HORMONE 87262 TSH 2.764 uIU/mL 01/13/2018 Unknown COMPREHENSIVE METABOLIC 06617 AST 19 U/L 2017 Unknown COMPREHENSIVE METABOLIC 47063 ALT 21 U/L 2017 Unknown COMPREHENSIVE METABOLIC 63671 BUN 16 mg/dL 2017 Unknown COMPREHENSIVE METABOLIC 97714 ALBUMIN 4.2 g/dL 2017 Unknown COMPREHENSIVE METABOLIC 89348 CHLORIDE 105 mmol/L 01/13 Unknown COMPREHENSIVE METABOLIC 58280 Bili Total 0.5 mg/dL 01/13 Unknown COMPREHENSIVE METABOLIC 38968 ALK PHOS 85 U/L 2017 Unknown COMPREHENSIVE METABOLIC 16060 SODIUM 139 mmol/L 01/13 Unknown COMPREHENSIVE METABOLIC 17957 CREATININE 1.07 mg/dL 01/04 Unknown COMPREHENSIVE METABOLIC 95159 CALCIUM 9.2 mg/dL 2017 Unknown COMPREHENSIVE METABOLIC 36702 POTASSIUM 4.4 mmol/L 01/13 Unknown COMPREHENSIVE METABOLIC 90836 Total Protein 7.7 g/dL Unknown COMPREHENSIVE METABOLIC 22648 Glucose 130 mg/dL 2017 Unknown COMPREHENSIVE METABOLIC 76681 Bicarbonate 27 mmol/L 01/04 Unknown COMPREHENSIVE METABOLIC 22967 AGAP 7 mmol/L 2017 Unknown PSA EQUIMOLAR JERSON 96222 PSA Total 1.16 ng/mL 8 Unknown MEAN GLUC 1961370 Calc Mean Gluc 131 mg/dL 01/13/2018 Unkn own GFR CALC 3071242 GFR Non Afr Amr >60 mL/min 01/13/2018 Un known GFR CALC 9782352 GFR Afr Amr >60 mL/min 01/13/2018 Unknow n MEAN GLUC 8807185 Calc Mean Gluc 134 mg/dL 10/06/2017 Unkn own GFR CALC 9255103 GFR Non Afr Amr >60 mL/min 10/06/2017 Un known GFR CALC 2478583 GFR Afr Amr >60 mL/min 10/06/2017 Unknow n GLYCOSYLATED HEMOGLOBIN TEST 06395 Hgb A1c 46139-7 6.3 % 0 10/06/2017 Unknown VITAMIN B 12 01617 VITAMIN B12 1202 pg/mL 10/06/2017 Unk nown COMPLETE BLOOD COUNT 8117148 WBC 7.4 10e9/L 10/07/19 18 Unknown COMPLETE BLOOD COUNT 9691826 RBC 4.24 10e12/L 2017 Unknown COMPLETE BLOOD COUNT 8527671 HEMOGLOBIN 13.5 g/dL 10/07/19 18 Unknown COMPLETE BLOOD COUNT [id number] HEMATOCRIT 41.6 % 10/07/19 18 Unknown COMPLETE BLOOD COUNT 4622319 MCV 98.1 fL 8 Unknown COMPLETE BLOOD COUNT 1731830 MCH 31.8 pg 8 Unknown COMPLETE BLOOD COUNT 1563889 MCHC 32.5 g/dL 8 Unknown COMPLETE BLOOD COUNT 3129568 PLATELET COUNT 223 10e9/L 06/2017 Unknown COMPLETE BLOOD COUNT 6113864 Mean Plt Volume 11.9 fL 06/2017 Unknown COMPLETE BLOOD COUNT 7023031 Neut Auto 58.0 % 8 Unknown COMPLETE BLOOD COUNT 0349412 Lymph Auto 29.7 % 10/07/19 18 Unknown COMPLETE BLOOD COUNT 4866751 [place] Auto 8.3 % 8 Unknown COMPLETE BLOOD COUNT 6292246 RDW 14.0 % 8 Unknown COMPLETE BLOOD COUNT 2241434 Eos Auto 3.7 % 8 Unknown COMPLETE BLOOD COUNT 3112200 Baso Auto 0.3 % 8 Unknown COMPLETE BLOOD COUNT 3285839 Neutrophil Abs 4.29 10e9/L Unknown COMPLETE BLOOD COUNT 5391787 Lymphocyte Abs 2.20 10e9/L Unknown COMPLETE BLOOD COUNT [id number] Monocyte Abs 0.61 10e9/L 06/2017 Unknown COMPLETE BLOOD COUNT 0283763 Eosinophil Abs 0.27 10e9/L Unknown COMPLETE BLOOD COUNT 0837379 RDW-SD 48.6 fL 8 Unknown COMPLETE BLOOD COUNT [id number] Basophil Abs 0.02 10e9/L 06/2017 Unknown LIPID GROUP 77557 Cholesterol 216 mg/dL 10/06/2017 [facility]kno wn [facility] 86367 Triglyceride 335 mg/dL 10/06/2017 Unkn own [facility] 83252 HDL CHOLESTEROL 33 mg/dL 10/06/2017 U nknown LIPID GROUP 96595 Chol/HDL Ratio 6.55 ratio 10/06/2017 U nknown LIPID GROUP 20317 NON-HDL Chol 183 mg/dL 10/06/2017 Unkn own LIP[facility] GROUP 41439 LDL Cholesterol 116 mg/dL 10/06/2017 U nknown COMPREHENSIVE METABOLIC 88691 AST 15 U/L 2017 Unknown COMPREHENSIVE METABOLIC 46214 ALT 15 U/L 2017 Unknown COMPREHENSIVE METABOLIC 12669 BUN 21 mg/dL 2017 Unknown COMPREHENSIVE METABOLIC 40397 ALBUMIN 4.1 g/dL 2017 Unknown COMPREHENSIVE METABOLIC 17038 CHLORIDE 107 mmol/L 10/06 Unknown COMPREHENSIVE METABOLIC 18976 Bili Total 0.6 mg/dL 10/06 Unknown COMPREHENSIVE METABOLIC 84385 ALK PHOS 68 U/L 2017 Unknown COMPREHENSIVE METABOLIC 32498 SODIUM 140 mmol/L 10/06 Unknown COMPREHENSIVE METABOLIC 93554 CREATININE 1.12 mg/dL 06/2017 Unknown COMPREHENSIVE METABOLIC 88683 CALCIUM 9.7 mg/dL 2017 Unknown COMPREHENSIVE METABOLIC 59676 POTASSIUM 4.6 mmol/L 10/06 Unknown COMPREHENSIVE METABOLIC 53534 Total Protein 6.6 g/dL Unknown COMPREHENSIVE METABOLIC 12908 Glucose 114 mg/dL 2017 Unknown COMPREHENSIVE METABOLIC 57963 Bicarbonate 26 mmol/L 06/2017 Unknown COMPREHENSIVE METABOLIC 62062 AGAP 7 mmol/L 2017 Unknown GLYCOSYLATED HEMOGLOBIN TEST 72141 Hgb A1c 35010-7 6.1 % 1 05/05/2016 Unknown GFR CALC 2110209 GFR Non Afr Amr >60 mL/min 03/05/2017 Un known GFR CALC 1008459 GFR Afr Amr >60 mL/min 03/05/2017 Unknow n MEAN GLUC 3741951 Calc Mean Gluc 128 mg/dL 03/05/2017 Unkn own COMPREHENSIVE METABOLIC 91515 AST 18 U/L 2016 Unknown COMPREHENSIVE METABOLIC 23522 ALT 20 U/L 2016 Unknown COMPREHENSIVE METABOLIC 04463 BUN 15 mg/dL 2016 Unknown COMPREHENSIVE METABOLIC 34355 ALBUMIN 4.3 g/dL 2016 Unknown COMPREHENSIVE METABOLIC 00521 CHLORIDE 105 mmol/L 03/05 Unknown COMPREHENSIVE METABOLIC 70816 Bili Total 0.5 mg/dL 03/05 Unknown COMPREHENSIVE METABOLIC 04878 ALK PHOS 57 U/L 2016 Unknown COMPREHENSIVE METABOLIC 26457 SODIUM 141 mmol/L 03/05 Unknown COMPREHENSIVE METABOLIC 40791 CREATININE 1.07 mg/dL 02/06 Unknown COMPREHENSIVE METABOLIC 38233 CALCIUM 9.3 mg/dL 2016 Unknown COMPREHENSIVE METABOLIC 93842 POTASSIUM 4.8 mmol/L 03/05 Unknown COMPREHENSIVE METABOLIC 27602 Total Protein 6.2 g/dL Unknown COMPREHENSIVE METABOLIC 14715 Glucose 118 mg/dL 2016 Unknown COMPREHENSIVE METABOLIC 17357 Bicarbonate 29 mmol/L 02/06 Unknown COMPREHENSIVE METABOLIC 56584 AGAP 7 mmol/L 2016 Unknown FREE T4 24019 T4 Free 1.38 ng/dL 03/05/2017 Unknown COMPLETE BLOOD COUNT 1891893 WBC 8.4 10e9/L 03/05/20 17 Unknown COMPLETE BLOOD COUNT 1973558 RBC 4.11 10e12/L 2016 Unknown COMPLETE BLOOD COUNT 4642346 HEMOGLOBIN 12.8 g/dL 03/05/20 17 Unknown COMPLETE BLOOD COUNT 8622116 HEMATOCRIT 40.1 % 03/05/20 17 Unknown COMPLETE BLOOD COUNT 1308939 MCV 97.6 fL 7 Unknown COMPLETE BLOOD COUNT 9366052 MCH 31.1 pg 7 Unknown COMPLETE BLOOD COUNT 9271242 MCHC 31.9 g/dL 7 Unknown COMPLETE BLOOD COUNT 3368009 PLATELET COUNT 184 10e9/L Unknown COMPLETE BLOOD COUNT 4116930 Mean Plt Volume 11.3 fL Unknown COMPLETE BLOOD COUNT [id number] Neut Auto 62.5 % 7 Unknown COMPLETE BLOOD COUNT [id number] Lymph Auto 26.4 % 03/05/20 17 Unknown COMPLETE BLOOD COUNT 7124685 [place] Auto 7.9 % 7 Unknown COMPLETE BLOOD COUNT 4831027 RDW 13.5 % 7 Unknown COMPLETE BLOOD COUNT 3978711 Eos Auto 3.0 % 7 Unknown COMPLETE BLOOD COUNT 2161142 Baso Auto 0.2 % 7 Unknown COMPLETE BLOOD COUNT 0254219 Neutrophil Abs 5.25 10e9/L Unknown COMPLETE BLOOD COUNT 0621968 Lymphocyte Abs 2.22 10e9/L Unknown COMPLETE BLOOD COUNT [id number] Monocyte Abs 0.66 10e9/L 02/06 Unknown COMPLETE BLOOD COUNT 0945969 Eosinophil Abs 0.25 10e9/L Unknown COMPLETE BLOOD COUNT 7881049 RDW-SD 46.7 fL 7 Unknown COMPLETE BLOOD COUNT 5561390 Basophil Abs 0.02 10e9/L 02/06 Unknown THYROID STIMULATING HORMONE 70257 TSH 2.330 uIU/mL 03/05/2017 Unknown LIPID GROUP 74787 Cholesterol 135 mg/dL 03/05/2017 Unkno wn LIPID GROUP 67456 Triglyceride 297 mg/dL 03/05/2017 Unkn own LIPID GROUP 96507 HDL CHOLESTEROL 34 mg/dL 03/05/2017 U nknown LIPID GROUP 41865 Chol/HDL Ratio 3.97 ratio 03/05/2017 U nknown LIPID GROUP 53884 NON-HDL Chol 101 mg/dL 03/05/2017 Unkn own LIPID GROUP 23009 LDL Cholesterol 42 mg/dL 03/05/2017 U nknown GLYCOSYLATED HEMOGLOBIN TEST 33524 Hgb A1c 90479-6 6.5 % 1 05/07/2015 Unknown GFR CALC 1370610 GFR Non Afr Amr 55 mL/min 03/06/2016 Unk nown GFR CALC 0495701 GFR Afr Amr >60 mL/min 03/06/2016 Unknow n COMPLETE BLOOD COUNT 4307753 WBC 8.5 10e9/L 03/06/20 16 Unknown COMPLETE BLOOD COUNT [id number] RBC 4.32 10e12/L 2015 Unknown COMPLETE BLOOD COUNT 8697867 HEMOGLOBIN 13.5 g/dL 03/06/20 16 Unknown COMPLETE BLOOD COUNT 4983692 HEMATOCRIT 41.3 % 03/06/20 16 Unknown COMPLETE BLOOD COUNT 4381584 MCV 95.6 fL 6 Unknown COMPLETE BLOOD COUNT 7975009 MCH 31.3 pg 6 Unknown COMPLETE BLOOD COUNT 6775726 MCHC 32.7 g/dL 6 Unknown COMPLETE BLOOD COUNT 9386807 PLATELET COUNT 191 10e9/L 04/2015 Unknown COMPLETE BLOOD COUNT 5672237 Mean Plt Volume 11.7 fL 04/2015 Unknown COMPLETE BLOOD COUNT 5669552 Neut Auto 64.2 % 6 Unknown COMPLETE BLOOD COUNT 6418472 Lymph Auto 25.9 % 03/06/20 16 Unknown COMPLETE BLOOD COUNT 9302145 [place] Auto 7.8 % 6 Unknown COMPLETE BLOOD COUNT 2614712 RDW 13.4 % 6 Unknown COMPLETE BLOOD COUNT 5096104 Eos Auto 2.0 % 6 Unknown COMPLETE BLOOD COUNT 0888352 Baso Auto 0.1 % 6 Unknown COMPLETE BLOOD COUNT 5047840 Neutrophil Abs 5.46 10e9/L Unknown COMPLETE BLOOD COUNT 1641128 Lymphocyte Abs 2.20 10e9/L Unknown COMPLETE BLOOD COUNT 0663583 Monocyte Abs 0.66 10e9/L 04/2015 Unknown COMPLETE BLOOD COUNT 3792324 Eosinophil Abs 0.17 10e9/L Unknown COMPLETE BLOOD COUNT 0513802 RDW-SD 45.0 fL 6 Unknown COMPLETE BLOOD COUNT [id number] Basophil Abs 0.01 10e9/L 04/2015 Unknown FREE T4 18788 T4 Free 1.34 ng/dL 03/06/2016 Unknown MEAN GLUC 4964500 Calc Mean Gluc 140 mg/dL 03/06/2016 Unkn own COMPREHENSIVE METABOLIC 07818 AST 15 U/L 2015 Unknown COMPREHENSIVE METABOLIC 34355 ALT 18 U/L 2015 Unknown COMPREHENSIVE METABOLIC 90859 BUN 21 mg/dL 2015 Unknown COMPREHENSIVE METABOLIC 67471 ALBUMIN 4.3 g/dL 2015 Unknown COMPREHENSIVE METABOLIC 70078 CHLORIDE 103 mmol/L 03/06 Unknown COMPREHENSIVE METABOLIC 62279 Bili Total 0.4 mg/dL 03/06 Unknown COMPREHENSIVE METABOLIC 56352 ALK PHOS 68 U/L 2015 Unknown COMPREHENSIVE METABOLIC 27355 SODIUM 140 mmol/L 03/06 Unknown COMPREHENSIVE METABOLIC 35484 CREATININE 1.31 mg/dL 04/2015 Unknown COMPREHENSIVE METABOLIC 29076 CALCIUM 9.4 mg/dL 2015 Unknown COMPREHENSIVE METABOLIC 96487 POTASSIUM 4.8 mmol/L 03/06 Unknown COMPREHENSIVE METABOLIC 27622 Total Protein 6.6 g/dL Unknown COMPREHENSIVE METABOLIC 84646 Glucose 142 mg/dL 2015 Unknown COMPREHENSIVE METABOLIC 01935 Bicarbonate 29 mmol/L 04/2015 Unknown COMPREHENSIVE METABOLIC 59403 AGAP 8 mmol/L 2015 Unknown THYROID STIMULATING HORMONE 09075 TSH 2.288 uIU/mL 03/06/2016 Unknown LIPID GROUP 87014 Cholesterol 154 mg/dL 03/06/2016 Unkno wn LIPID GROUP 95016 Triglyceride 266 mg/dL 03/06/2016 Unkn own LIPID GROUP 72845 HDL CHOLESTEROL 38 mg/dL 03/06/2016 U nknown LIPID GROUP 91994 Chol/HDL Ratio 4.05 ratio 03/06/2016 U nknown LIPID GROUP 88691 NON-HDL Chol 116 mg/dL 03/06/2016 Unkn own LIPID GROUP 96494 LDL Cholesterol 63 mg/dL 03/06/2016 U nkno MEAN GLUC 1280349 Mean Glucose 128 mg/dL 08/31/2015 Unknow n COMPLETE BLOOD COUNT 5445766 WBC 8.4 10e9/L 08/31/19 16 Unknown COMPLETE BLOOD COUNT 9998357 RBC 4.12 10e12/L 2015 Unknown COMPLETE BLOOD COUNT 7464083 HEMOGLOBIN 12.8 g/dL 08/31/19 16 Unknown COMPLETE BLOOD COUNT 4239815 HEMATOCRIT 39.6 % 08/31/19 16 Unknown COMPLETE BLOOD COUNT 2613557 MCV 96.1 fL 6 Unknown COMPLETE BLOOD COUNT 8229382 MCH 31.1 pg 6 Unknown COMPLETE BLOOD COUNT 4645027 MCHC 32.3 g/dL 6 Unknown COMPLETE BLOOD COUNT 8059072 PLATELET COUNT 184 10e9/L Unknown COMPLETE BLOOD COUNT 8112951 Mean Plt Volume 12.0 fL Unknown COMPLETE BLOOD COUNT 8378280 Neut Auto 59.8 % 6 Unknown COMPLETE BLOOD COUNT 6843136 Lymph Auto 27.9 % 08/31/19 16 Unknown COMPLETE BLOOD COUNT 8495686 [place] Auto 9.1 % 6 Unknown COMPLETE BLOOD COUNT 0915163 RDW 13.6 % 6 Unknown COMPLETE BLOOD COUNT 7711900 Eos Auto 3.1 % 6 Unknown COMPLETE BLOOD COUNT 8105131 Baso Auto 0.1 % 6 Unknown COMPLETE BLOOD COUNT 1248579 Neutrophil Abs 5.02 10e9/L Unknown COMPLETE BLOOD COUNT 3524229 Lymphoctye Abs 2.34 10e9/L Unknown COMPLETE BLOOD COUNT 6157180 Monocyte Abs 0.76 10e9/L 08/05 Unknown COMPLETE BLOOD COUNT 8282488 Eosinophil Abs 0.26 10e9/L Unknown COMPLETE BLOOD COUNT 2954542 RDW-SD 46.3 fL 6 Unknown COMPLETE BLOOD COUNT 1262560 Basophil Abs 0.01 10e9/L 08/05 Unknown GLYCOSYLATED HEMOGLOBIN TEST 43945 Hgb A1c 75977-9 6.1 % 0 08/31/2015 Unknown GFR CALC 0172272 GFR Non Afr Amr >60 mL/min 08/31/2015 Un known GFR CALC 5629584 GFR Afr Amr >60 mL/min 08/31/2015 Unknow n FREE T4 23002 T4 Free 1.21 ng/dL 08/31/2015 Unknown THYROID STIMULATING HORMONE 27852 TSH 2.988 uIU/mL 08/31/2015 Unknown COMPREHENSIVE METABOLIC 72907 AST 16 U/L 2015 Unknown COMPREHENSIVE METABOLIC 41627 ALT 19 U/L 2015 Unknown COMPREHENSIVE METABOLIC 98861 BUN 17 mg/dL 2015 Unknown COMPREHENSIVE METABOLIC 56745 ALBUMIN 4.3 g/dL 2015 Unknown COMPREHENSIVE METABOLIC 57292 CHLORIDE 107 mmol/L 08/30 Unknown COMPREHENSIVE METABOLIC 55947 Bili Total 0.4 mg/dL 08/30 Unknown COMPREHENSIVE METABOLIC 65539 ALK PHOS 66 U/L 2015 Unknown COMPREHENSIVE METABOLIC 34095 SODIUM 140 mmol/L 08/30 Unknown COMPREHENSIVE METABOLIC 71991 CREATININE 1.07 mg/dL 08/05 Unknown COMPREHENSIVE METABOLIC 05098 CALCIUM 9.5 mg/dL 2015 Unknown COMPREHENSIVE METABOLIC 39371 POTASSIUM 4.5 mmol/L 08/30 Unknown COMPREHENSIVE METABOLIC 89523 Total Protein 6.7 g/dL Unknown COMPREHENSIVE METABOLIC 35908 Glucose 122 mg/dL 2015 Unknown COMPREHENSIVE METABOLIC 47848 Bicarbonate 26 mmol/L 08/05 Unknown COMPREHENSIVE METABOLIC 17960 AGAP 7 mmol/L 2015 Unknown LIPID GROUP 07795 Cholesterol 171 mg/dL 08/31/2015 Unkno wn LIPID GROUP 59532 Triglyceride 428 mg/dL 08/31/2015 Unkn own LIPID GROUP 94305 HDL CHOLESTEROL 35 mg/dL 08/31/2015 U nknown LIPID GROUP 24126 Chol/HDL Ratio 4.89 ratio 08/31/2015 U nknown LIPID GROUP 43906 NON-HDL Chol 136 mg/dL 08/31/2015 Unkn own LIPID GROUP 71386 LDL Cholesterol 50 mg/dL 08/31/2015 U nknown PSA EQUIMOLAR JERSON 81317 PSA Total 0.47 ng/mL 6 Unknown GFR CALC 5267971 GFR AA >60 ML/MIN 01/12/2015 Unknown GFR CALC 9500817 GFR NON-AA >60 ML/MIN 01/12/2015 Unknown COMPREHENSIVE METABOLIC 54027 AST 18 U/L 2014 Unknown COMPREHENSIVE METABOLIC 82242 ALT 19 IU/L 2014 Unknown COMPREHENSIVE METABOLIC 16571 BUN 19 MG/DL 2014 Unknown COMPREHENSIVE METABOLIC 75368 ALBUMIN 4.7 GM/DL 2014 Unknown COMPREHENSIVE METABOLIC 70843 CHLORIDE 104 MMOL/L 01/12 Unknown COMPREHENSIVE METABOLIC 27251 BILI TOT 0.8 MG/DL 2014 Unknown COMPREHENSIVE METABOLIC 48994 ALK PHOS 58 U/L 2014 Unknown COMPREHENSIVE METABOLIC 31048 SODIUM 139 MMOL/L 01/12 Unknown COMPREHENSIVE METABOLIC 45097 CREATININE 1.09 MG/DL 12/2014 Unknown COMPREHENSIVE METABOLIC 96652 CALCIUM 9.6 MG/DL 2014 Unknown COMPREHENSIVE METABOLIC 37244 POTASSIUM 4.4 MMOL/L 01/12 Unknown COMPREHENSIVE METABOLIC 61368 PROT TOT 6.7 GM/DL 2014 Unknown COMPREHENSIVE METABOLIC 17142 Glucose 109 MG/DL 2014 Unknown COMPREHENSIVE METABOLIC 92507 BICARB 27 MMOL/L 2014 Unknown COMPREHENSIVE METABOLIC 36249 ANION GAP 8 MEQ/L 2014 Unknown LIPID GROUP 74031 HDL TEST 36 MG/DL 01/12/2015 Unknown LIPID GROUP 80779 TRIG 220 MG/DL 01/12/2015 Unknown LIPID GROUP 66070 TEST LDL 58 MG/DL 01/12/2015 Unknown LIPID GROUP 16875 CHOL 138 MG/DL 01/12/2015 Unknown LIPID GROUP 48013 RCHOL/HDL 3.83 RATIO 01/12/2015 Unknow n LIPID GROUP 45989 NON-HDL CH 102 MG/DL 01/12/2015 Unknow n GLYCOSYLATED HEMOGLOBIN TEST 65770 A1C HPLC 44376-1 6.1 % 1 Unknown COMPLETE BLOOD COUNT 1761198 WBC 7.1 10e9/L 01/13/20 15 Unknown COMPLETE BLOOD COUNT 5553881 RBC 4.38 10e12/L 2014 Unknown COMPLETE BLOOD COUNT 4949961 HGB 13.7 g/dL 5 Unknown COMPLETE BLOOD COUNT 3223350 HCT DET 41.3 % 5 Unknown COMPLETE BLOOD COUNT 6191516 MCV 94.3 fL 5 Unknown COMPLETE BLOOD COUNT 3811736 MCH 31.3 pg 5 Unknown COMPLETE BLOOD COUNT 6959002 MCHC 33.2 g/dL 5 Unknown COMPLETE BLOOD COUNT 5799615 PLT 174 10e9/L 01/13/20 15 Unknown COMPLETE BLOOD COUNT 2422843 MPV 11.8 fL 5 Unknown COMPLETE BLOOD COUNT 7962750 SAMIR % 61.3 % 5 Unknown COMPLETE BLOOD COUNT 1600185 LY % 28.3 % 5 Unknown COMPLETE BLOOD COUNT 6061207 MON % 7.6 % 5 Unknown COMPLETE BLOOD COUNT 1600050 EOS % 2.7 % 5 Unknown COMPLETE BLOOD COUNT 4680830 BASO % 0.1 % 5 Unknown COMPLETE BLOOD COUNT 2738203 RDW 13.1 % 5 Unknown COMPLETE BLOOD COUNT 3886580 ABS SAMIR 4.35 10e9/L 015 Unknown COMPLETE BLOOD COUNT 6600859 ABS LYMPH 2.01 10e9/L 015 Unknown COMPLETE BLOOD COUNT 2646515 ABS MONO 0.54 10e9/L 015 Unknown COMPLETE BLOOD COUNT 6709573 ABS EOS 0.19 10e9/L 015 Unknown COMPLETE BLOOD COUNT 7892602 ABS BASO 0.01 10e9/L 015 Unknown COMPLETE BLOOD COUNT 8508624 RDW-SD 43.9 fL 5 Unknown GLYCOSYLATED HEMOGLOBIN TEST 56078 A1C HPLC 28901-3 6.1 % 0 08/15/2014 Unknown COMPLETE BLOOD COUNT 8334658 WBC 9.7 10e9/L 08/16/19 15 Unknown COMPLETE BLOOD COUNT 2706449 RBC 4.29 10e12/L 2014 Unknown COMPLETE BLOOD COUNT 7654014 HGB 13.3 g/dL 5 Unknown COMPLETE BLOOD COUNT 6383961 HCT DET 40.5 % 5 Unknown COMPLETE BLOOD COUNT 5283457 MCV 94.4 fL 5 Unknown COMPLETE BLOOD COUNT 2149882 MCH 31.0 pg 5 Unknown COMPLETE BLOOD COUNT 2760092 MCHC 32.8 g/dL 5 Unknown COMPLETE BLOOD COUNT [id number] PLT 227 10e9/L 08/16/19 15 Unknown COMPLETE BLOOD COUNT [id number] MPV 11.0 fL 5 Unknown COMPLETE BLOOD COUNT [id number] SAMIR % 66.4 % 5 Unknown COMPLETE BLOOD COUNT [id number] LY % 23.7 % 5 Unknown COMPLETE BLOOD COUNT [id number] MON % 8.1 % 5 Unknown COMPLETE BLOOD COUNT [id number] EOS % 1.6 % 5 Unknown COMPLETE BLOOD COUNT [id number] BASO % 0.2 % 5 Unknown COMPLETE BLOOD COUNT [id number] RDW 13.4 % 5 Unknown COMPLETE BLOOD COUNT [id number] ABS SAMIR 6.44 10e9/L 015 Unknown COMPLETE BLOOD COUNT [id number] ABS LYMPH 2.30 10e9/L 015 Unknown COMPLETE BLOOD COUNT [id number] ABS MONO 0.79 10e9/L 015 Unknown COMPLETE BLOOD COUNT [id number] ABS EOS 0.16 10e9/L 015 Unknown COMPLETE BLOOD COUNT [id number] ABS BASO 0.02 10e9/L 015 Unknown COMPLETE BLOOD COUNT [id number] RDW-SD 44.7 fL 5 Unknown COMPREHENSIVE METABOLIC 58281 AST 17 U/L 2014 Unknown COMPREHENSIVE METABOLIC 16131 ALT 23 IU/L 2014 Unknown COMPREHENSIVE METABOLIC 74697 BUN 16 MG/DL 2014 Unknown COMPREHENSIVE METABOLIC 70801 ALBUMIN 4.3 GM/DL 2014 Unknown COMPREHENSIVE METABOLIC 03969 CHLORIDE 107 MMOL/L 08/15 Unknown COMPREHENSIVE METABOLIC 14348 BILI TOT 0.4 MG/DL 2014 Unknown COMPREHENSIVE METABOLIC 25881 ALK PHOS 91 U/L 2014 Unknown COMPREHENSIVE METABOLIC 71634 SODIUM 139 MMOL/L 08/15 Unknown COMPREHENSIVE METABOLIC 40151 CREATININE 1.07 MG/DL 08/04 Unknown COMPREHENSIVE METABOLIC 33716 CALCIUM 9.6 MG/DL 2014 Unknown COMPREHENSIVE METABOLIC 07171 POTASSIUM 4.6 MMOL/L 08/15 Unknown COMPREHENSIVE METABOLIC 07698 PROT TOT 6.7 GM/DL 2014 Unknown COMPREHENSIVE METABOLIC 00867 Glucose 111 MG/DL 2014 Unknown COMPREHENSIVE METABOLIC 47104 BICARB 27 MMOL/L 2014 Unknown COMPREHENSIVE METABOLIC 68973 ANION GAP 5 MEQ/L 2014 Unknown GFR CALC [id number] GFR AA >60 ML/MIN 08/15/2014 Unknown GFR CALC [id number] GFR NON-AA >60 ML/MIN 08/15/2014 Unknown THYROID STIMULATING HORMONE 11007 TSH 1.598 uIU/ML 08/15/2014 Unknown LIPID GROUP 89748 HDL TEST 33 MG/DL 08/15/2014 Unknown LIPID GROUP 81998 TRIG 187 MG/DL 08/15/2014 Unknown LIPID GROUP [id number] TEST LDL 58 MG/DL 08/15/2014 Unknown LIPID GROUP 71174 CHOL 128 MG/DL 08/15/2014 Unknown [facility]IP[facility] GROUP 78799 RCHOL/HDL 3.88 RATIO 08/15/2014 Unknow n LIPID GROUP 83221 NON-HDL CH 95 MG/DL 08/15/2014 Unknow n PSA EQUIMOLAR JERSON 36375 PSA EQ 0.70 NG/ML 5 Unknown FREE T4 23030 FREE T4 1.32 NG/DL 08/15/2014 Unknown GFR CALC 2376476 GFR AA >60 ML/MIN 12/14/2013 Unknown GFR CALC 7484287 GFR NON-AA 58.0L ML/MIN 12/14/2013 Unkno wn COMPLETE BLOOD COUNT 2101418 WBC 8.7 10e9/L 12/15/19 14 Unknown COMPLETE BLOOD COUNT [id number] RBC 4.32 10e12/L 2013 Unknown COMPLETE BLOOD COUNT 1701312 HGB 13.5 g/dL 4 Unknown COMPLETE BLOOD COUNT 8444278 HCT DET 40.6 % 4 Unknown COMPLETE BLOOD COUNT 3355504 MCV 94.0 fL 4 Unknown COMPLETE BLOOD COUNT 3887094 MCH 31.3 pg 4 Unknown COMPLETE BLOOD COUNT 6468452 MCHC 33.3 g/dL 4 Unknown COMPLETE BLOOD COUNT 0598458 PLT 205 10e9/L 12/15/19 14 Unknown COMPLETE BLOOD COUNT 7057758 MPV 11.7 fL 4 Unknown COMPLETE BLOOD COUNT [id number] SAMIR % 62.5 % 4 Unknown COMPLETE BLOOD COUNT 8837201 LY % 26.9 % 4 Unknown COMPLETE BLOOD COUNT 5383104 MON % 8.8 % 4 Unknown COMPLETE BLOOD COUNT 2916143 EOS % 1.7 % 4 Unknown COMPLETE BLOOD COUNT [id number] BASO % 0.1 % 4 Unknown COMPLETE BLOOD COUNT 3797222 RDW 13.4 % 4 Unknown COMPLETE BLOOD COUNT [id number] ABS SAMIR 5.44 10e9/L 014 Unknown COMPLETE BLOOD COUNT [id number] ABS LYMPH 2.34 10e9/L 014 Unknown COMPLETE BLOOD COUNT [id number] ABS MONO 0.77 10e9/L 014 Unknown COMPLETE BLOOD COUNT [id number] ABS EOS 0.15 10e9/L 014 Unknown COMPLETE BLOOD COUNT 4993217 ABS BASO 0.01 10e9/L 014 Unknown COMPLETE BLOOD COUNT 9046609 RDW-SD 44.7 fL 4 Unknown COMPREHENSIVE METABOLIC 05743 AST 14 U/L 2013 Unknown COMPREHENSIVE METABOLIC 33877 ALT 12 IU/L 2013 Unknown COMPREHENSIVE METABOLIC 16355 BUN 24 MG/DL 2013 Unknown COMPREHENSIVE METABOLIC 68138 ALBUMIN 4.5 GM/DL 2013 Unknown COMPREHENSIVE METABOLIC 96462 CHLORIDE 104 MMOL/L 12/14 Unknown COMPREHENSIVE METABOLIC 64158 BILI TOT 0.6 MG/DL 2013 Unknown COMPREHENSIVE METABOLIC 09625 ALK PHOS 82 U/L 2013 Unknown COMPREHENSIVE METABOLIC 38724 SODIUM 135 MMOL/L 12/14 Unknown COMPREHENSIVE METABOLIC 06553 CREATININE 1.25 MG/DL 12/05 Unknown COMPREHENSIVE METABOLIC 82379 CALCIUM 9.8 MG/DL 2013 Unknown COMPREHENSIVE METABOLIC 26029 POTASSIUM 4.7 MMOL/L 12/14 Unknown COMPREHENSIVE METABOLIC 26130 PROT TOT 6.7 GM/DL 2013 Unknown COMPREHENSIVE METABOLIC 92951 Glucose 126 MG/DL 2013 Unknown COMPREHENSIVE METABOLIC 58457 BICARB 27 MMOL/L 2013 Unknown COMPREHENSIVE METABOLIC 38047 ANION GAP 4 MEQ/L 2013 Unknown THYROID STIMULATING HORMONE 55135 TSH 3.281 uIU/ML 12/14/2013 Unknown FREE T4 04836 FREE T4 1.28 NG/DL 12/14/2013 Unknown LIPID GROUP 70245 HDL TEST 36 MG/DL 12/14/2013 Unknown LIP[facility] GROUP 17283 TRIG 253 MG/DL 12/14/2013 Unknown LIP[facility] GROUP 83734 TEST LDL 56 MG/DL 12/14/2013 Unknown LIP[facility] GROUP 32397 CHOL 143 MG/DL 12/14/2013 Unknown LIP[facility] GROUP 35217 RCHOL/HDL 3.97 RATIO 12/14/2013 Unknow n LIP[facility] GROUP 37916 NON-HDL CH 107 MG/DL 12/14/2013 Unknow n GLYCOSYLATED HEMOGLOBIN TEST 63048 A1C HPLC 77268-0 6.1 % 0 12/14/2013 Unknown GLYCOSYLATED HEMOGLOBIN TEST 28315 A1C HPLC 32437-7 6.0 % 0 06/08/2013 Unknown LIPID GROUP 61716 HDL TEST 39 MG/DL 06/08/2013 Unknown LIPID GROUP 83863 TRIG 166 MG/DL 06/08/2013 Unknown LIP[facility] GROUP 89524 TEST LDL 86 MG/DL 06/08/2013 Unknown LIPID GROUP 84577 CHOL 158 MG/DL 06/08/2013 Unknown LIPID GROUP 20654 RCHOL/HDL 4.05 RATIO 06/08/2013 Unknow n COMPREHENSIVE METABOLIC 56290 AST 17 U/L 2013 Unknown COMPREHENSIVE METABOLIC 63414 ALT 25 IU/L 2013 Unknown COMPREHENSIVE METABOLIC 75009 BUN 18 MG/DL 2013 Unknown COMPREHENSIVE METABOLIC 55089 ALBUMIN 4.5 GM/DL 2013 Unknown COMPREHENSIVE METABOLIC 34634 CHLORIDE 103 MMOL/L 06/08 Unknown COMPREHENSIVE METABOLIC 72524 BILI TOT 0.4 MG/DL 2013 Unknown COMPREHENSIVE METABOLIC 76304 ALK PHOS 72 U/L 2013 Unknown COMPREHENSIVE METABOLIC 93025 SODIUM 137 MMOL/L 06/08 Unknown COMPREHENSIVE METABOLIC 20332 CREATININE 1.07 MG/DL 08/2013 Unknown COMPREHENSIVE METABOLIC 85577 CALCIUM 9.7 MG/DL 2013 Unknown COMPREHENSIVE METABOLIC 69062 POTASSIUM 4.7 MMOL/L 06/08 Unknown COMPREHENSIVE METABOLIC 41193 PROT TOT 6.6 GM/DL 2013 Unknown COMPREHENSIVE METABOLIC 75751 Glucose 130 MG/DL 2013 Unknown COMPREHENSIVE METABOLIC 87915 BICARB 25 MMOL/L 2013 Unknown COMPREHENSIVE METABOLIC 66398 ANION GAP 9 MEQ/L 2013 Unknown FREE T4 26351 FREE T4 1.29 NG/DL 06/08/2013 Unknown THYROID STIMULATING HORMONE 52459 TSH 2.445 uIU/ML 06/08/2013 Unknown GFR CALC 4195867 GFR AA >60 ML/MIN 06/08/2013 Unknown GFR CALC 1933096 GFR NON-AA >60 ML/MIN 06/08/2013 Unknown COMPLETE BLOOD COUNT 1547567 WBC 8.2 10e9/L 06/09/19 14 Unknown COMPLETE BLOOD COUNT 8535999 RBC 4.63 10e12/L 2013 Unknown COMPLETE BLOOD COUNT 6141289 HGB 14.1 g/dL 4 Unknown COMPLETE BLOOD COUNT 8951302 HCT DET 42.6 % 4 Unknown COMPLETE BLOOD COUNT 6060465 MCV 92.0 fL 4 Unknown COMPLETE BLOOD COUNT 4351732 MCH 30.5 pg 4 Unknown COMPLETE BLOOD COUNT 6982015 MCHC 33.1 g/dL 4 Unknown COMPLETE BLOOD COUNT [id number] PLT 222 10e9/L 06/09/19 14 Unknown COMPLETE BLOOD COUNT 9459309 MPV 10.8 fL 4 Unknown COMPLETE BLOOD COUNT 3178621 SAMIR % 60.8 % 4 Unknown COMPLETE BLOOD COUNT 8166389 LY % 29.2 % 4 Unknown COMPLETE BLOOD COUNT 1464949 MON % 7.6 % 4 Unknown COMPLETE BLOOD COUNT 5367548 EOS % 2.3 % 4 Unknown COMPLETE BLOOD COUNT 2461473 BASO % 0.1 % 4 Unknown COMPLETE BLOOD COUNT 3652554 RDW 13.7 % 4 Unknown COMPLETE BLOOD COUNT 3559054 ABS SAMIR 4.99 10e9/L 014 Unknown COMPLETE BLOOD COUNT 1041207 ABS LYMPH 2.39 10e9/L 014 Unknown COMPLETE BLOOD COUNT 5354554 ABS MONO 0.62 10e9/L 014 Unknown COMPLETE BLOOD COUNT 9105408 ABS EOS 0.19 10e9/L 014 Unknown COMPLETE BLOOD COUNT 4964041 ABS BASO 0.01 10e9/L 014 Unknown COMPLETE BLOOD COUNT 9777482 RDW-SD 45.2 fL 4 Unknown LIPID GROUP 45150 HDL TEST 40 MG/DL 11/11/2012 Unknown LIPID GROUP 34459 TRIG 153 MG/DL 11/11/2012 Unknown LIPID GROUP 48131 TEST LDL 71 MG/DL 11/11/2012 Unknown LIPID GROUP 52369 CHOL 142 MG/DL 11/11/2012 Unknown LIPID GROUP 06539 RCHOL/HDL 3.55 RATIO 11/11/2012 Unknow n GFR CALC 1508766 GFR AA >60 ML/MIN 11/11/2012 Unknown GFR CALC 1618154 GFR NON-AA 57.0L ML/MIN 11/11/2012 Unkno wn HEMOGLOBIN A1C (GLYCOSYLATED) 8346787 A1C HPLC 10249-3 5.9 % 11/11/2012 Unknown THYROID STIMULATING HORMONE 52027 TSH 2.439 uIU/ML 11/11/2012 Unknown COMPLETE BLOOD COUNT 6339011 WBC 8.5 10e9/L 11/12/19 13 Unknown COMPLETE BLOOD COUNT 0645160 RBC 4.42 10e12/L 2012 Unknown COMPLETE BLOOD COUNT 9752335 HGB 13.7 g/dL 3 Unknown COMPLETE BLOOD COUNT 0098939 HCT DET 41.3 % 3 Unknown COMPLETE BLOOD COUNT 7026352 MCV 93.4 fL 3 Unknown COMPLETE BLOOD COUNT 1554873 MCH 31.0 pg 3 Unknown COMPLETE BLOOD COUNT 3310402 MCHC 33.2 g/dL 3 Unknown COMPLETE BLOOD COUNT 7763751 PLT 220 10e9/L 11/12/19 13 Unknown COMPLETE BLOOD COUNT 4277143 MPV 10.8 fL 3 Unknown COMPLETE BLOOD COUNT 0198300 SAMIR % 60.4 % 3 Unknown COMPLETE BLOOD COUNT 9342453 LY % 28.7 % 3 Unknown COMPLETE BLOOD COUNT 9690900 MON % 8.0 % 3 Unknown COMPLETE BLOOD COUNT 1498429 EOS % 2.8 % 3 Unknown COMPLETE BLOOD COUNT 0009516 BASO % 0.1 % 3 Unknown COMPLETE BLOOD COUNT 0790677 RDW 13.7 % 3 Unknown COMPLETE BLOOD COUNT 9478124 ABS SAMIR 5.13 10e9/L 013 Unknown COMPLETE BLOOD COUNT 2064512 ABS LYMPH 2.44 10e9/L 013 Unknown COMPLETE BLOOD COUNT 0313991 ABS MONO 0.68 10e9/L 013 Unknown COMPLETE BLOOD COUNT 1114864 ABS EOS 0.24 10e9/L 013 Unknown COMPLETE BLOOD COUNT 2571266 ABS BASO 0.01 10e9/L 013 Unknown COMPLETE BLOOD COUNT 3236521 RDW-SD 45.6 fL 3 Unknown COMPREHENSIVE METABOLIC 23251 AST 19 U/L 2012 Unknown COMPREHENSIVE METABOLIC 53303 ALT 28 IU/L 2012 Unknown COMPREHENSIVE METABOLIC 44017 BUN 31 MG/DL 2012 Unknown COMPREHENSIVE METABOLIC 44992 ALBUMIN 4.7 GM/DL 2012 Unknown COMPREHENSIVE METABOLIC 19964 CHLORIDE 106 MMOL/L 11/11 Unknown COMPREHENSIVE METABOLIC 59484 BILI TOT 0.5 MG/DL 2012 Unknown COMPREHENSIVE METABOLIC 25167 ALK PHOS 64 U/L 2012 Unknown COMPREHENSIVE METABOLIC 85874 SODIUM 136 MMOL/L 11/11 Unknown COMPREHENSIVE METABOLIC 96781 CREATININE 1.27 MG/DL 11/2012 Unknown COMPREHENSIVE METABOLIC 95431 CALCIUM 9.4 MG/DL 2012 Unknown COMPREHENSIVE METABOLIC 37511 POTASSIUM 4.9 MMOL/L 11/11 Unknown COMPREHENSIVE METABOLIC 14349 PROT TOT 6.7 GM/DL 2012 Unknown COMPREHENSIVE METABOLIC 09427 Glucose 108 MG/DL 2012 Unknown COMPREHENSIVE METABOLIC 81858 BICARB 21 MMOL/L 2012 Unknown COMPREHENSIVE METABOLIC 17592 ANION GAP 9 MEQ/L 2012 Unknown THYROID STIMULATING HORMONE 48612 TSH 2.572 uIU/ML 05/04/2012 Unknown COMPLETE BLOOD COUNT 1961424 WBC 9.3 10e9/L 05/04/19 13 Unknown COMPLETE BLOOD COUNT 1648753 RBC 4.43 10e12/L 2012 Unknown COMPLETE BLOOD COUNT 2216241 HGB 14.2 g/dL 3 Unknown COMPLETE BLOOD COUNT 7634603 HCT DET 41.1 % 3 Unknown COMPLETE BLOOD COUNT 2283573 MCV 92.8 fL 3 Unknown COMPLETE BLOOD COUNT 7005847 MCH 32.1 pg 3 Unknown COMPLETE BLOOD COUNT 6381923 MCHC 34.5 g/dL 3 Unknown COMPLETE BLOOD COUNT 3903417 PLT 193 10e9/L 05/04/19 13 Unknown COMPLETE BLOOD COUNT 4880121 MPV 10.8 fL 3 Unknown COMPLETE BLOOD COUNT [id number] SAMIR % 63.0 % 3 Unknown COMPLETE BLOOD COUNT 1352077 LY % 25.3 % 3 Unknown COMPLETE BLOOD COUNT 7910766 MON % 9.1 % 3 Unknown COMPLETE BLOOD COUNT 9319196 EOS % 2.5 % 3 Unknown COMPLETE BLOOD COUNT 2136398 BASO % 0.1 % 3 Unknown COMPLETE BLOOD COUNT 9709597 RDW 12.6 % 3 Unknown COMPLETE BLOOD COUNT 2728343 ABS SAMIR 5.86 10e9/L 013 Unknown COMPLETE BLOOD COUNT 1878735 ABS LYMPH 2.35 10e9/L 013 Unknown COMPLETE BLOOD COUNT 8688922 ABS MONO 0.85 10e9/L 013 Unknown COMPLETE BLOOD COUNT 8614266 ABS EOS 0.23 10e9/L 013 Unknown COMPLETE BLOOD COUNT 6514782 ABS BASO 0.01 10e9/L 013 Unknown COMPLETE BLOOD COUNT 1815910 RDW-SD 41.2 fL 3 Unknown LIPID GROUP 84031 HDL TEST 35 MG/DL 05/04/2012 Unknown LIPID GROUP 64887 TRIG 236 MG/DL 05/04/2012 Unknown LIP[facility] GROUP 99879 TEST LDL 64 MG/DL 05/04/2012 Unknown LIP[facility] GROUP 26407 CHOL 146 MG/DL 05/04/2012 Unknown LIP[facility] GROUP 28878 RCHOL/HDL 4.17 RATIO 05/04/2012 Unknow n COMPREHENSIVE METABOLIC 56805 AST 23 U/L 2012 Unknown COMPREHENSIVE METABOLIC 49681 ALT 33 IU/L 2012 Unknown COMPREHENSIVE METABOLIC 76138 BUN 16 MG/DL 2012 Unknown COMPREHENSIVE METABOLIC 24411 ALBUMIN 4.8 GM/DL 2012 Unknown COMPREHENSIVE METABOLIC 75269 CHLORIDE 104 MMOL/L 05/04 Unknown COMPREHENSIVE METABOLIC 82805 BILI TOT 0.5 MG/DL 2012 Unknown COMPREHENSIVE METABOLIC 67955 ALK PHOS 70 U/L 2012 Unknown COMPREHENSIVE METABOLIC 82824 SODIUM 138 MMOL/L 05/04 Unknown COMPREHENSIVE METABOLIC 27823 CREATININE 1.08 MG/DL 04/07 Unknown COMPREHENSIVE METABOLIC 28611 CALCIUM 9.7 MG/DL 2012 Unknown COMPREHENSIVE METABOLIC 61845 POTASSIUM 4.4 MMOL/L 05/04 Unknown COMPREHENSIVE METABOLIC 69840 PROT TOT 6.8 GM/DL 2012 Unknown COMPREHENSIVE METABOLIC 43516 Glucose 114 MG/DL 2012 Unknown COMPREHENSIVE METABOLIC 43984 BICARB 27 MMOL/L 2012 Unknown COMPREHENSIVE METABOLIC 14584 ANION GAP 7 MEQ/L 2012 Unknown FREE T4 43137 FREE T4 1.11 NG/DL 05/04/2012 Unknown GFR CALC 0377703 GFR AA >60 ML/MIN 05/04/2012 Unknown GFR CALC 1850092 GFR NON-AA >60 ML/MIN 05/04/2012 Unknown GLYCOSYLATED HEMOGLOBIN TEST 40471 A1C HPLC 50296-4 5.8 % 0 10/29/2011 Unknown COMPREHENSIVE METABOLIC 83412 AST 17 U/L 2011 Unknown COMPREHENSIVE METABOLIC 96733 ALT 21 IU/L 2011 Unknown COMPREHENSIVE METABOLIC 41747 BUN 17 MG/DL 2011 Unknown COMPREHENSIVE METABOLIC 23633 ALBUMIN 4.8 GM/DL 2011 Unknown COMPREHENSIVE METABOLIC 40524 CHLORIDE 106 MMOL/L 10/28 Unknown COMPREHENSIVE METABOLIC 77100 BILI TOT 0.6 MG/DL 2011 Unknown COMPREHENSIVE METABOLIC 97309 ALK PHOS 57 U/L 2011 Unknown COMPREHENSIVE METABOLIC 94128 SODIUM 139 MMOL/L 10/28 Unknown COMPREHENSIVE METABOLIC 78404 CREATININE 1.08 MG/DL 10/05 Unknown COMPREHENSIVE METABOLIC 46960 CALCIUM 9.6 MG/DL 2011 Unknown COMPREHENSIVE METABOLIC 29496 POTASSIUM 4.4 MMOL/L 10/28 Unknown COMPREHENSIVE METABOLIC 15955 PROT TOT 6.9 GM/DL 2011 Unknown COMPREHENSIVE METABOLIC 27503 Glucose 104 MG/DL 2011 Unknown COMPREHENSIVE METABOLIC 22880 BICARB 25 MMOL/L 2011 Unknown COMPREHENSIVE METABOLIC 17612 ANION GAP 8 MEQ/L 2011 Unknown LIPID GROUP 83935 HDL TEST 39 MG/DL 10/29/2011 Unknown LIPID GROUP 25207 TRIG 176 MG/DL 10/29/2011 Unknown LIPID GROUP 52307 TEST LDL 70 MG/DL 10/29/2011 Unknown LIPID GROUP 38239 CHOL 144 MG/DL 10/29/2011 Unknown LIPID GROUP 63722 RCHOL/HDL 3.69 RATIO 10/29/2011 Unknow n GFR CALC 3403036 GFR AA >60 ML/MIN 10/29/2011 Unknown GFR CALC 6130049 GFR NON-AA >60 ML/MIN 10/29/2011 Unknown GFR CALC 2980501 GFR AA >60 ML/MIN 03/14/2011 Unknown GFR CALC 3231980 GFR NON-AA >60 ML/MIN 03/14/2011 Unknown GLYCOSYLATED HEMOGLOBIN TEST 01210 A1C HPLC 80238-5 5.7 % 1 05/15/2010 Unknown COMPREHENSIVE METABOLIC 79923 AST 18 U/L 2010 Unknown COMPREHENSIVE METABOLIC 85650 ALT 25 IU/L 2010 Unknown COMPREHENSIVE METABOLIC 71110 BUN 15 MG/DL 2010 Unknown COMPREHENSIVE METABOLIC 78843 ALBUMIN 4.6 GM/DL 2010 Unknown COMPREHENSIVE METABOLIC 85830 CHLORIDE 107 MMOL/L 03/14 Unknown COMPREHENSIVE METABOLIC 43584 BILI TOT 0.6 MG/DL 2010 Unknown COMPREHENSIVE METABOLIC 69769 ALK PHOS 54 U/L 2010 Unknown COMPREHENSIVE METABOLIC 03324 SODIUM 140 MMOL/L 03/14 Unknown COMPREHENSIVE METABOLIC 08453 CREATININE 1.02 MG/DL 12/2010 Unknown COMPREHENSIVE METABOLIC 24165 CALCIUM 9.4 MG/DL 2010 Unknown COMPREHENSIVE METABOLIC 35818 POTASSIUM 4.6 MMOL/L 03/14 Unknown COMPREHENSIVE METABOLIC 62961 PROT TOT 7.0 GM/DL 2010 Unknown COMPREHENSIVE METABOLIC 39383 Glucose 107 MG/DL 2010 Unknown COMPREHENSIVE METABOLIC 41059 BICARB 28 MMOL/L 2010 Unknown COMPREHENSIVE METABOLIC 85427 ANION GAP 5 MEQ/L 2010 Unknown LIPID GROUP 62590 HDL TEST 39 MG/DL 03/14/2011 Unknown LIPID GROUP 02761 TRIG 157 MG/DL 03/14/2011 Unknown LIPID GROUP 28458 TEST LDL 66 MG/DL 03/14/2011 Unknown LIPID GROUP 84449 CHOL 136 MG/DL 03/14/2011 Unknown LIPID GROUP 19675 RCHOL/HDL 3.49 RATIO 03/14/2011 Unknow n GFR CALC 4609720 GFR AA >60 ML/MIN 11/11/2010 Unknown GFR CALC 1579365 GFR NON-AA >60 ML/MIN 11/11/2010 Unknown LIPID GROUP 71836 HDL TEST 39 MG/DL 11/11/2010 Unknown LIPID GROUP 37766 TRIG 212 MG/DL 11/11/2010 Unknown LIPID GROUP 81509 TEST LDL 67 MG/DL 11/11/2010 Unknown LIPID GROUP 52039 CHOL 148 MG/DL 11/11/2010 Unknown LIPID GROUP 73966 RCHOL/HDL 3.79 RATIO 11/11/2010 Unknow n COMPREHENSIVE METABOLIC 76207 AST 17 U/L 2010 Unknown COMPREHENSIVE METABOLIC 64339 ALT 21 IU/L 2010 Unknown COMPREHENSIVE METABOLIC 76509 BUN 16 MG/DL 2010 Unknown COMPREHENSIVE METABOLIC 31404 ALBUMIN 4.6 GM/DL 2010 Unknown COMPREHENSIVE METABOLIC 11227 CHLORIDE 106 MMOL/L 11/11 Unknown COMPREHENSIVE METABOLIC 89283 BILI TOT 0.5 MG/DL 2010 Unknown COMPREHENSIVE METABOLIC 01254 ALK PHOS 61 U/L 2010 Unknown COMPREHENSIVE METABOLIC 16546 SODIUM 139 MMOL/L 11/11 Unknown COMPREHENSIVE METABOLIC 44695 CREATININE 1.00 MG/DL 11/2010 Unknown COMPREHENSIVE METABOLIC 99291 CALCIUM 9.5 MG/DL 2010 Unknown COMPREHENSIVE METABOLIC 98011 POTASSIUM 4.5 MMOL/L 11/11 Unknown COMPREHENSIVE METABOLIC 74600 PROT TOT 6.9 GM/DL 2010 Unknown COMPREHENSIVE METABOLIC 49823 Glucose 111 MG/DL 2010 Unknown COMPREHENSIVE METABOLIC 54912 BICARB 26 MMOL/L 2010 Unknown COMPREHENSIVE METABOLIC 68845 ANION GAP 7 MEQ/L 2010 Unknown HEMOGLOBIN A1C (GLYCOSYLATED) [address] [facility] 15194-9 5.6 % 07/24/2010 Unknown GFR CALC 8335924 GFR AA >60 ML/MIN 07/23/2010 Unknown GFR CALC 4465276 GFR NON-AA >60 ML/MIN 07/23/2010 Unknown COMPREHENSIVE METABOLIC 00972 AST 19 U/L 2010 Unknown COMPREHENSIVE METABOLIC 09699 ALT 33 IU/L 2010 Unknown COMPREHENSIVE METABOLIC 90854 BUN 14 MG/DL 2010 Unknown COMPREHENSIVE METABOLIC 42091 ALBUMIN 4.7 GM/DL 2010 Unknown COMPREHENSIVE METABOLIC 62443 CHLORIDE 107 MMOL/L 07/23 Unknown COMPREHENSIVE METABOLIC 34172 BILI TOT 0.4 MG/DL 2010 Unknown COMPREHENSIVE METABOLIC 08960 ALK PHOS 80 U/L 2010 Unknown COMPREHENSIVE METABOLIC 06865 SODIUM 141 MMOL/L 07/23 Unknown COMPREHENSIVE METABOLIC 50129 CREATININE 0.97 MG/DL 07/05 Unknown COMPREHENSIVE METABOLIC 17709 CALCIUM 9.5 MG/DL 2010 Unknown COMPREHENSIVE METABOLIC 61034 POTASSIUM 4.1 MMOL/L 07/23 Unknown COMPREHENSIVE METABOLIC 30843 PROT TOT 6.8 GM/DL 2010 Unknown COMPREHENSIVE METABOLIC 68389 Glucose 120 MG/DL 2010 Unknown COMPREHENSIVE METABOLIC 23065 BICARB 26 MMOL/L 2010 Unknown COMPREHENSIVE METABOLIC 76645 ANION GAP 8 MEQ/L 2010 Unknown LIPID GROUP 00704 HDL TEST 41 MG/DL 07/23/2010 Unknown LIPID GROUP 65173 TRIG 175 MG/DL 07/23/2010 Unknown LIPID GROUP 21904 TEST LDL 72 MG/DL 07/23/2010 Unknown LIPID GROUP 40289 CHOL 148 MG/DL 07/23/2010 Unknown LIPID GROUP 91891 RCHOL/HDL 3.61 RATIO 07/23/2010 Unknow n PSA FREE AND TOTAL 15768|58371 % FREE PSA FOOTNOTE % 011 Unknown PSA FREE AND TOTAL 64439|12382 XPSA TOTAL 0.83 NG/ML 011 Unknown PSA FREE AND TOTAL 72048|06679 XPSA FREE 0.13 NG/ML 04/26/19 11 Unknown VITAMIN D TOTAL (25 HYDROXY) 55902 VIT D TOTL 26 NG/ML 04/22/2010 Unknown TESTOSTERONE TOTAL 29005 TESTOS TO 387 NG/DL 04/19/2010 Unknown GFR CALC 3492883 GFR AA >60 ML/MIN 04/19/2010 Unknown GFR CALC 0106915 GFR NON-AA >60 ML/MIN 04/19/2010 Unknown COMPLETE BLOOD COUNT 20996 WBC 7.0 10e9/L 04/19/19 11 Unknown COMPLETE BLOOD COUNT 55173 RBC 5.07 10e12/L 2010 Unknown COMPLETE BLOOD COUNT 34046 HGB 15.6 g/dL 1 Unknown COMPLETE BLOOD COUNT 11281 HCT DET 46.2 % 1 Unknown COMPLETE BLOOD COUNT 86341 MCV 91.1 fL 1 Unknown COMPLETE BLOOD COUNT 39837 MCH 30.8 pg 1 Unknown COMPLETE BLOOD COUNT 60886 MCHC 33.8 g/dL 1 Unknown COMPLETE BLOOD COUNT 43451 PLT 205 10e9/L 04/19/19 11 Unknown COMPLETE BLOOD COUNT 57610 MPV 11.1 fL 1 Unknown COMPLETE BLOOD COUNT 58867 SAMIR % 62.4 % 1 Unknown COMPLETE BLOOD COUNT 81065 LY % 28.5 % 1 Unknown COMPLETE BLOOD COUNT 73698 MON % 6.9 % 1 Unknown COMPLETE BLOOD COUNT 43004 EOS % 2.1 % 1 Unknown COMPLETE BLOOD COUNT 06948 BASO % 0.1 % 1 Unknown COMPLETE BLOOD COUNT 86610 RDW 13.4 % 1 Unknown COMPLETE BLOOD COUNT 46367 ABS SAMIR 4.37 10e9/L 011 Unknown COMPLETE BLOOD COUNT 78098 ABS LYMPH 2.00 10e9/L 011 Unknown COMPLETE BLOOD COUNT 21819 ABS MONO 0.48 10e9/L 011 Unknown COMPLETE BLOOD COUNT 06785 ABS EOS 0.15 10e9/L 011 Unknown COMPLETE BLOOD COUNT 15410 ABS BASO 0.01 10e9/L 011 Unknown COMPLETE BLOOD COUNT 99687 RDW-SD 43.8 fL 1 Unknown LIPID GROUP 79271 HDL TEST 39 MG/DL 04/19/2010 Unknown LIPID GROUP 37966 TRIG 244 MG/DL 04/19/2010 Unknown LIPID GROUP 54072 TEST LDL 168 MG/DL 04/19/2010 Unknown LIPID GROUP 09104 CHOL 256 MG/DL 04/19/2010 Unknown LIPID GROUP 72290 RCHOL/HDL 6.56 RATIO 04/19/2010 Unknow n COMPREHENSIVE METABOLIC 76935 AST 28 U/L 2010 Unknown COMPREHENSIVE METABOLIC 30215 ALT 46 IU/L 2010 Unknown COMPREHENSIVE METABOLIC 58965 BUN 14 MG/DL 2010 Unknown COMPREHENSIVE METABOLIC 77080 ALBUMIN 4.9 GM/DL 2010 Unknown COMPREHENSIVE METABOLIC 61717 CHLORIDE 104 MMOL/L 04/19 Unknown COMPREHENSIVE METABOLIC 17299 BILI TOT 0.8 MG/DL 2010 Unknown COMPREHENSIVE METABOLIC 74196 ALK PHOS 71 U/L 2010 Unknown COMPREHENSIVE METABOLIC 48615 SODIUM 139 MMOL/L 04/19 Unknown COMPREHENSIVE METABOLIC 59415 CREATININE 1.06 MG/DL 04/06 Unknown COMPREHENSIVE METABOLIC 00649 CALCIUM 9.9 MG/DL 2010 Unknown COMPREHENSIVE METABOLIC 09614 POTASSIUM 4.3 MMOL/L 04/19 Unknown COMPREHENSIVE METABOLIC 41244 PROT TOT 7.2 GM/DL 2010 Unknown COMPREHENSIVE METABOLIC 45264 Glucose 99 MG/DL 2010 Unknown COMPREHENSIVE METABOLIC 93140 BICARB 28 MMOL/L 2010 Unknown COMPREHENSIVE METABOLIC 98801 ANION GAP 7 MEQ/L 2010 Unknown FREE T4 55510 FREE T4 1.26 NG/DL 04/19/2010 Unknown Procedures Procedure Codes Date ROUTINE VENIPUNCTURE CPT-4: 33027 08/24/2019 COMPREHEN METABOLIC PANEL CPT-4: 07907 08/24/2019 A1C HPLC CPT-4: 38335 08/24/2019 ROUTINE VENIPUNCTURE CPT-4: 04039 05/24/2019 COMPREHEN METABOLIC PANEL CPT-4: 22474 05/24/2019 A1C HPLC CPT-4: 27514 05/24/2019 FLU VACC PRSV FREE INC ANTIG 65 AND OLDER CPT-4: 60281 01/26/2019 FLU VACC PRSV FREE INC ANTIG 65 AND OLDER CPT-4: 46422 01/26/2019 ADMIN INFLUENZA VIRUS VAC CPT-4: G0008 01/26/2019 ROUTINE VENIPUNCTURE CPT-4: 37027 01/26/2019 COMPREHEN METABOLIC PANEL CPT-4: 89614 01/26/2019 COMPLETE CBC W/AUTO DIFF WBC CPT-4: 15017 01/26/2019 LIPID PANEL CPT-4: 63906 01/26/2019 A1C HPLC CPT-4: 75588 01/26/2019 ROUTINE VENIPUNCTURE CPT-4: 39226 09/30/2018 METABOLIC PANEL TOTAL CA CPT-4: 47347 09/30/2018 URINALYSIS NONAUTO W/O SCOPE CPT-4: 16482 08/19/2018 URINE CULTURE/ COLONY COUNT CPT-4: 46344 08/19/2018 MICROALBUMIN QUANTITATIVE CPT-4: 13483 08/19/2018 ROUTINE VENIPUNCTURE CPT-4: 81920 08/16/2018 ASSAY THYROID STIM HORMONE CPT-4: 76884 08/16/2018 COMPREHEN METABOLIC PANEL CPT-4: 37777 08/16/2018 COMPLETE CBC W/AUTO DIFF WBC CPT-4: 27392 08/16/2018 LIPID PANEL CPT-4: 19222 08/16/2018 A1C HPLC CPT-4: 18216 08/16/2018 LIPID PANEL CPT-4: 63761 05/05/2018 COMPREHEN METABOLIC PANEL CPT-4: 81795 05/05/2018 ROUTINE VENIPUNCTURE CPT-4: 28060 05/05/2018 A1C HPLC CPT-4: 33070 05/05/2018 COMPLETE CBC W/AUTO DIFF WBC CPT-4: 45169 05/05/2018 ASSAY THYROID STIM HORMONE CPT-4: 57585 05/05/2018 MICROALBUMIN QUANTITATIVE CPT-4: 00292 01/19/2018 PRESCRIP TRANSMIT VIA ERX SY CPT-4: G8553 01/19/2018 ROUTINE VENIPUNCTURE CPT-4: 56413 01/13/2018 COMPREHEN METABOLIC PANEL CPT-4: 58332 01/13/2018 A1C HPLC CPT-4: 73763 01/13/2018 LIPID PANEL CPT-4: 89182 01/13/2018 ASSAY OF PSA TOTAL CPT-4: 69367 01/13/2018 ASSAY THYROID STIM HORMONE CPT-4: 34676 01/13/2018 ROUTINE VENIPUNCTURE CPT-4: 81383 10/06/2017 COMPREHEN METABOLIC PANEL CPT-4: 22062 10/06/2017 COMPLETE CBC W/AUTO DIFF WBC CPT-4: 84900 10/06/2017 LIPID PANEL CPT-4: 82052 10/06/2017 A1C HPLC CPT-4: 43393 10/06/2017 VITAMIN B-12 CPT-4: 06462 10/06/2017 DESTRUCT PREMALG LESION (Cryosurgery) CPT-4: 61299 DESTRUCT PREMALG LES 2-14 CPT-4: 30726 04/23/2017 PRESCRIP TRANSMIT VIA ERX SY CPT-4: G8553 03/11/2017 ROUTINE VENIPUNCTURE CPT-4: 45282 03/05/2017 ASSAY OF FREE THYROXINE CPT-4: 40648 03/05/2017 ASSAY THYROID STIM HORMONE CPT-4: 61619 03/05/2017 COMPREHEN METABOLIC PANEL CPT-4: 68188 03/05/2017 COMPLETE CBC W/AUTO DIFF WBC CPT-4: 39581 03/05/2017 LIPID PANEL CPT-4: 07668 03/05/2017 A1C HPLC CPT-4: 12182 03/05/2017 ROUTINE VENIPUNCTURE CPT-4: 78580 06/16/2016 ASSAY OF FREE THYROXINE CPT-4: 05431 06/16/2016 ASSAY THYROID STIM HORMONE CPT-4: 27730 06/16/2016 COMPREHEN METABOLIC PANEL CPT-4: 07649 06/16/2016 COMPLETE CBC W/AUTO DIFF WBC CPT-4: 55318 06/16/2016 LIPID PANEL CPT-4: 15964 06/16/2016 A1C HPLC CPT-4: 23111 06/16/2016 ROUTINE VENIPUNCTURE CPT-4: 62953 03/06/2016 ASSAY OF FREE THYROXINE CPT-4: 00142 03/06/2016 ASSAY THYROID STIM HORMONE CPT-4: 19023 03/06/2016 COMPREHEN METABOLIC PANEL CPT-4: 09214 03/06/2016 COMPLETE CBC W/AUTO DIFF WBC CPT-4: 60798 03/06/2016 LIPID PANEL CPT-4: 81127 03/06/2016 A1C HPLC CPT-4: 12477 03/06/2016 PRESCRIP TRANSMIT VIA ERX SY CPT-4: G8553 09/10/2015 PNEUMOCOCCAL VACC 23 ROSANNE IM CPT-4: 73270 09/06/2015 ADMIN PNEUMOCOCCAL VACCINE CPT-4: G0009 09/06/2015 ROUTINE VENIPUNCTURE CPT-4: 58965 08/31/2015 COMPREHEN METABOLIC PANEL CPT-4: 40714 08/31/2015 COMPLETE CBC W/AUTO DIFF WBC CPT-4: 12461 08/31/2015 LIPID PANEL CPT-4: 95666 08/31/2015 ASSAY OF PSA TOTAL CPT-4: 92186 08/31/2015 A1C HPLC CPT-4: 09103 08/31/2015 ASSAY OF FREE THYROXINE CPT-4: 31344 08/31/2015 ASSAY THYROID STIM HORMONE CPT-4: 63443 08/31/2015 PRESCRIP TRANSMIT VIA ERX SY CPT-4: G8553 06/29/2015 FLU VACC PRSV FREE INC ANTIG 65 AND OLDER CPT-4: 42683 01/17/2015 PNEUMOCOCCAL VACC 13 ROSANNE IM CPT-4: 44223 01/17/2015 ADMIN INFLUENZA VIRUS VAC CPT-4: G0008 01/17/2015 ADMIN PNEUMOCOCCAL VACCINE CPT-4: G0009 01/17/2015 DESTRUCT PREMALG LESION (Cryosurgery) CPT-4: 13377 PRESCRIP TRANSMIT VIA ERX SY CPT-4: G8553 01/17/2015 ROUTINE VENIPUNCTURE CPT-4: 10410 01/12/2015 COMPREHEN METABOLIC PANEL CPT-4: 73784 01/12/2015 COMPLETE CBC W/AUTO DIFF WBC CPT-4: 07453 01/12/2015 LIPID PANEL CPT-4: 83359 01/12/2015 A1C HPLC CPT-4: 00107 01/12/2015 DESTRUCT PREMALG LESION (Cryosurgery) CPT-4: 84982 ROUTINE VENIPUNCTURE CPT-4: 82149 08/15/2014 COMPREHEN METABOLIC PANEL CPT-4: 02346 08/15/2014 COMPLETE CBC W/AUTO DIFF WBC CPT-4: 11859 08/15/2014 LIPID PANEL CPT-4: 35251 08/15/2014 A1C HPLC CPT-4: 53989 08/15/2014 ASSAY OF PSA TOTAL CPT-4: 28340 08/15/2014 ASSAY OF FREE THYROXINE CPT-4: 93471 08/15/2014 ASSAY THYROID STIM HORMONE CPT-4: 55262 08/15/2014 ROUTINE VENIPUNCTURE CPT-4: 85865 12/14/2013 ASSAY OF FREE THYROXINE CPT-4: 65094 12/14/2013 ASSAY THYROID STIM HORMONE CPT-4: 20570 12/14/2013 COMPREHEN METABOLIC PANEL CPT-4: 17753 12/14/2013 COMPLETE CBC W/AUTO DIFF WBC CPT-4: 59111 12/14/2013 LIPID PANEL CPT-4: 31655 12/14/2013 A1C HPLC CPT-4: 34913 12/14/2013 ROUTINE VENIPUNCTURE CPT-4: 16171 06/08/2013 ASSAY OF FREE THYROXINE CPT-4: 38606 06/08/2013 ASSAY THYROID STIM HORMONE CPT-4: 87353 06/08/2013 COMPREHEN METABOLIC PANEL CPT-4: 16363 06/08/2013 COMPLETE CBC W/AUTO DIFF WBC CPT-4: 73571 06/08/2013 LIPID PANEL CPT-4: 75826 06/08/2013 A1C HPLC CPT-4: 31318 06/08/2013 ROUTINE VENIPUNCTURE CPT-4: 79033 11/11/2012 COMPREHEN METABOLIC PANEL CPT-4: 64906 11/11/2012 COMPLETE CBC W/AUTO DIFF WBC CPT-4: 80766 11/11/2012 LIPID PANEL CPT-4: 73404 11/11/2012 A1C GLYCOSYLATED HEMOGLOBIN TEST CPT-4: 43757 013 ASSAY THYROID STIM HORMONE CPT-4: 98069 11/11/2012 ROUTINE VENIPUNCTURE CPT-4: 67077 05/04/2012 ASSAY OF FREE THYROXINE CPT-4: 98116 05/04/2012 ASSAY THYROID STIM HORMONE CPT-4: 24960 05/04/2012 COMPREHEN METABOLIC PANEL CPT-4: 17376 05/04/2012 COMPLETE CBC W/AUTO DIFF WBC CPT-4: 26417 05/04/2012 LIPID PANEL CPT-4: 54534 05/04/2012 DESTRUCT PREMALG LESION (Cryosurgery) CPT-4: 09410 DESTRUCT PREMALG LES 2-14 CPT-4: 14981 03/02/2012 ROUTINE VENIPUNCTURE CPT-4: 84595 10/29/2011 COMPREHEN METABOLIC PANEL CPT-4: 58109 10/29/2011 LIPID PANEL CPT-4: 08724 10/29/2011 A1C GLYCOSYLATED HEMOGLOBIN TEST CPT-4: 04371 012 ROUTINE VENIPUNCTURE CPT-4: 86518 07/29/2011 COMPREHEN METABOLIC PANEL CPT-4: 55722 07/29/2011 LIPID PANEL CPT-4: 67609 07/29/2011 A1C GLYCOSYLATED HEMOGLOBIN TEST CPT-4: 15292 012 ROUTINE VENIPUNCTURE CPT-4: 24598 03/14/2011 COMPREHEN METABOLIC PANEL CPT-4: 40189 03/14/2011 LIPID PANEL CPT-4: 12756 03/14/2011 A1C GLYCOSYLATED HEMOGLOBIN TEST CPT-4: 67945 011 ROUTINE VENIPUNCTURE CPT-4: 21772 11/11/2010 COMPREHEN METABOLIC PANEL CPT-4: 63333 11/11/2010 LIPID PANEL CPT-4: 83869 11/11/2010 URINE CULTURE/ COLONY COUNT CPT-4: 02836 11/11/2010 URINALYSIS NONAUTO W/O SCOPE CPT-4: 44423 10/29/2010 URINE CULTURE/ COLONY COUNT CPT-4: 50671 10/29/2010 LIPID PANEL CPT-4: 19851 07/23/2010 COMPREHEN METABOLIC PANEL CPT-4: 17404 07/23/2010 ROUTINE VENIPUNCTURE CPT-4: 77858 07/23/2010 ROUTINE VENIPUNCTURE CPT-4: 18708 04/26/2010 PSA FREE AND TOTAL CPT-4: 02464|20386 04/26/2010 OCCULT BLOOD FECES CPT-4: 16251 04/24/2010 ROUTINE VENIPUNCTURE CPT-4: 55415 04/19/2010 COMPLETE CBC W/AUTO DIFF WBC CPT-4: 91856 04/19/2010 COMPREHEN METABOLIC PANEL CPT-4: 74721 04/19/2010 LIPID PANEL CPT-4: 66058 04/19/2010 TESTOSTERONE TOTAL - MALE CPT-4: 28169 04/19/2010 ASSAY THYROID STIM HORMONE CPT-4: 15314 04/19/2010 ASSAY OF FREE THYROXINE CPT-4: 44023 04/19/2010 VITAMIN D TOTAL (25 HYDROXY) CPT-4: 68382 04/19/2010 Vital Signs Date Vital 08/30/2019 Blood Pressure 1: 144/76 Code: 8480-6 Heart Rate 1: 84 bpm Respiratory Rate: 20 bpm SpO2: 98% Temperature: 36.9 (C) / 98.4 (F) We ight: 240 lbs 06/02/2019 Blood Pressure 1: 132/80 Code: 8480-6 BMI: 29.5 Code: 31595-5 Heart Rate 1: 64 bpm Height: 6'3" [...] 1: 112/70 Code: 8480-6 BMI: 28.9 Code: 04168-3 Heart Rate 1: 60 bpm Height: 6'3" Respiratory Rate: 20 bpm SpO2: 95% Tempera ture: 36.6 (C) / 97.9 (F) Weight: 231 lbs 01/19/2018 Blood Pressure 1: 150/82 Code: 8480-6 Heart Rate 1: 63 bpm Respiratory Rate: 18 bpm SpO2: 98% Temperature: 36.0 (C) / 96.8 (F) We ight: 225 lbs 10/15/2017 Blood Pressure 1: 126/82 Code: 8480-6 BMI: 27.9 Code: 69530-0 Heart Rate 1: 64 bpm Height: 6'3" Respiratory Rate: 20 bpm SpO2: 96% Tempera ture: 36.7 (C) / 98.1 (F) Weight: 223 lbs 04/23/2017 Blood Pressure 1: 136/74 Code: 8480-6 BMI: 28.7 Code: 20179-8 Heart Rate 1: 76 bpm Height: 6'3" Respiratory Rate: 20 bpm Temperature: 37 .0 (C) / 98.6 (F) Weight: 230 lbs 03/11/2017 Blood Pressure 1: 136/66 Code: 8480-6 BMI: 28.6 Code: 88093-2 Heart Rate 1: 60 bpm Height: 6'3" Respiratory Rate: 20 bpm Temperature: 36 .7 (C) / 98.1 (F) Weight: 229 lbs 07/09/2016 Blood Pressure 1: 132/80 Code: 8480-6 BMI: 27.7 Code: 54494-8 Heart Rate 1: 64 bpm Height: 6'3" Respiratory Rate: 20 bpm SpO2: 96% Tempera ture: 36.9 (C) / 98.4 (F) Weight: 222 lbs 03/10/2016 Blood Pressure 1: 134/78 Code: 8480-6 BMI: 28.5 Code: 04714-3 Heart Rate 1: 60 bpm Height: 6'3" Respiratory Rate: 20 bpm SpO2: 96% Tempera ture: 36.7 (C) / 98.1 (F) Weight: 228 lbs 09/12/2015 Blood Pressure 1: 136/78 Code: 8480-6 Heart Rate 1: 84 bpm Height: Respiratory Rate: 24 bpm SpO2: 97% Temperature: 36.4 (C) / 97.6 (F) We ight: 09/10/2015 Blood Pressure 1: 124/ Code: 8480-6 BMI: 28.5 Code: 74439-5 Heart Rate 1: 76 bpm Height: 6'3" Respiratory Rate: 24 bpm SpO2: 97% Tempera ture: 36.4 (C) / 97.6 (F) Weight: 228 lbs 09/06/2015 Blood Pressure 1: 124/82 Code: 8480-6 BMI: 29.0 Code: 47613-6 Heart Rate 1: 66 bpm Height: 6'3" Respiratory Rate: 20 bpm SpO2: 97% Tempera ture: 36.4 (C) / 97.6 (F) Weight: 232 lbs 06/29/2015 Blood Pressure 1: 124/82 Code: 8480-6 Heart Rate 1: 88 bpm Height: Respiratory Rate: 20 bpm Temperature: 36.7 (C) / 98.1 (F) Weight: 01/17/2015 Blood Pressure 1: 124 Code: 8480-6 BMI: 27.7 Code: 33566-3 Heart Rate 1: 76 bpm Height: 6'3" Respiratory Rate: 20 bpm Temperature: 36 .6 (C) / 97.8 (F) Weight: 222 lbs 09/19/2014 Blood Pressure 1: 128/80 Code: 8480-6 BMI: 27.4 Code: 50300-0 Heart Rate 1: 64 bpm Height: 6'3" Respiratory Rate: 20 bpm Temperature: 36 .4 (C) / 97.6 (F) Weight: 219 lbs 10/17/2013 Blood Pressure 1: 11670 Code: 8480-6 Heart Rate 1: 88 bpm Respiratory Rate: 20 bpm Temperature: 36.9 (C) / 98.4 (F) Weight: 220 lbs 09/23/2013 Blood Pressure 1: 12480 Code: 8480-6 BMI: 28.7 Code: 85309-6 Heart Rate 1: 76 bpm Height: 6'3" Respiratory Rate: 20 bpm Temperature: 36 .8 (C) / 98.2 (F) Weight: 230 lbs 07/22/2013 Blood Pressure 1: 128/70 Code: 8480-6 He art Rate 1: 78 bpm 06/20/2013 Blood Pressure 1: 144/86 Code: 8480-6 BMI: 28.7 Code: 85967-7 Heart Rate 1: 92 bpm Height: 6'3" Respiratory Rate: 20 bpm Temperature: 36 .4 (C) / 97.6 (F) Weight: 230 lbs 11/25/2012 Blood Pressure 1: 128/80 Code: 8480-6 BMI: 27.5 Code: 62136-1 Heart Rate 1: 92 bpm Height: 6'3" Respiratory Rate: 20 bpm Temperature: 36 .8 (C) / 98.3 (F) Weight: 220 lbs 08/27/2012 Blood Pressure 1: 142/80 Code: 8480-6 BMI: 27.7 Code: 12960-5 Heart Rate 1: 76 bpm Height: 6'3" Respiratory Rate: 20 bpm Temperature: 36 .8 (C) / 98.3 (F) Weight: 222 lbs 05/11/2012 Blood Pressure 1: 136/80 Code: 8480-6 BMI: 27.7 Code: 58539-3 Heart Rate 1: 76 bpm Height: 6'3" Respiratory Rate: 20 bpm Temperature: 36 .8 (C) / 98.3 (F) Weight: 222 lbs 03/02/2012 Blood Pressure 1: 136/70 Code: 8480-6 BMI: 28.0 Code: 45095-9 Heart Rate 1: 80 bpm Height: 6'3" Respiratory Rate: 20 bpm Temperature: 36 .6 (C) / 97.8 (F) Weight: 224 lbs 12/11/2011 Blood Pressure 1: 142/80 Code: 8480-6 BMI: 27.1 Code: 95823-3 Heart Rate 1: 84 bpm Height: 6'3" Respiratory Rate: 20 bpm Temperature: 36 .9 (C) / 98.4 (F) Weight: 217 lbs 08/14/2011 Blood Pressure 1: 130/82 Code: 8480-6 He art Rate 1: 64 bpm 07/29/2011 Blood Pressure 1: 132/64 Code: 8480-6 BMI: 26.7 Code: 44055-9 Heart Rate 1: 72 bpm Height: 6'3" [...] 1: 142/88 Code: 8480-6 BMI: 26.4 Code: 71619-0 Heart Rate 1: 80 bpm Height: 6'3" [...] labs Encounters Encounter Performer Location Codes Date ([id number]) OFFICE/OUTPATIENT VISIT EST Diagnosis: Type 2 diabetes mellitus with hyperglycemia[ICD10: E11.65] Diagnosis: Essential hypertension[ICD10: I10] Diagnosis: Stress reaction[ICD10: F43.0] Najma Grey [employer] CPT-4: 06248 08/30/2019 ([id number]) NURSE/OUTPATIENT VISIT EST Diagnosis: Essential (primary) hypertension[ICD10: I10] Diagnosis: Type 2 diabetes mellitus with hyperglycemia[ICD10: E11.65] Najma Grey [email or web address] CPT-4: 70598 08/24/2019 ([id number]) OFFICE/OUTPATIENT VISIT EST Diagnosis: Essential (primary) hypertension[ICD10: I10] Diagnosis: Gastro-esophageal reflux disease without esophagitis[ICD10: K21.9] Diagnosis: Type 2 diabetes mellitus with hyperglycemia[ICD10: E11.65] Najma Grey [employer] CPT-4: 27947 06/02/2019 ([id number]) NURSE/OUTPATIENT VISIT EST Diagnosis: Type 2 diabetes mellitus without complications[ICD10: E11.9] Diagnosis: Essential (primary) hypertension[ICD10: I10] Diagnosis: Mixed hyperlipidemia[ICD10: E78.2] Najma Grey [employer] [facility] CPT-4: 21705 05/24/2019 ([id number]) OFFICE/OUTPATIENT VISIT EST Diagnosis: Essential (primary) hypertension[ICD10: I10] Diagnosis: Type 2 diabetes mellitus without complications[ICD10: E11.9] Diagnosis: Mixed hyperlipidemia[ICD10: E78.2] Najma KATHLEENSolum [employer] [facility] CPT-4: 39597 01/31/2019 ([id number]) NURSE/OUTPATIENT VISIT EST Diagnosis: Mixed hyperlipidemia[ICD10: E78.2] Diagnosis: Type 2 diabetes mellitus without complications[ICD10: E11.9] Diagnosis: Essential (primary) hypertension[ICD10: I10] Diagnosis: Chronic kidney disease, unspecified[ICD10: N18.9] Najma MANUELLINE Matilda OG [employer] [facility] CPT-4: 92471 01/26/2019 ([id number]) NURSE/OUTPATIENT VISIT EST Diagnosis: Chronic kidney disease, unspecified[ICD10: N18.9] Diagnosis: Essential (primary) hypertension[ICD10: I10] Najma LONG [employer] [facility] CPT-4: 91009 09/30/2018 ([id number]) OFFICE/OUTPATIENT VISIT EST Diagnosis: Essential (primary) hypertension[ICD10: I10] Diagnosis: Type 2 diabetes mellitus without complications[ICD10: E11.9] Diagnosis: Mixed hyperlipidemia[ICD10: E78.2] Diagnosis: Unspecified kidney failure[ICD10: N19] Najma Hevervicentedasha SHABNAM CHAPMAN Matilda LONG [employer] [facility] CPT-4: 92970 08/19/2018 ([id number]) NURSE/OUTPATIENT VISIT EST Diagnosis: Essential (primary) hypertension[ICD10: I10] Diagnosis: Type 1 diabetes mellitus with unspecified complications[ICD10: E10.8] Diagnosis: Mixed hyperlipidemia[ICD10: E78.2] Najma Orenddasha ANUM GODINEZ Matilda OG [employer] [facility] CPT-4: 39216 08/16/2018 ([id number]) OFFICE/OUTPATIENT VISIT EST Diagnosis: Essential (primary) hypertension[ICD10: I10] Diagnosis: Type 2 diabetes mellitus without complications[ICD10: E11.9] Diagnosis: Mixed hyperlipidemia[ICD10: E78.2] Najma OG DO [employer] CPT-4: 77686 05/10/2018 ([id number]) NURSE/OUTPATIENT VISIT EST Diagnosis: Essential (primary) hypertension[ICD10: I10] Diagnosis: Mixed hyperlipidemia[ICD10: E78.2] Diagnosis: Type 1 diabetes mellitus with unspecified complications[ICD10: E10.8] Najma OG DO [facility] CPT-4: 69232 05/05/2018 ([id number]) OFFICE/OUTPATIENT VISIT EST Diagnosis: Type 2 diabetes mellitus without complications[ICD10: E11.9] Diagnosis: Mixed hyperlipidemia[ICD10: E78.2] Diagnosis: Nicotine dependence, unspecified, uncomplicated[ICD10: F17.200] Diagnosis: Essential (primary) hypertension[ICD10: I10] Najma OG DO [employer] CPT-4: 67555 01/19/2018 ([id number]) NURSE/OUTPATIENT VISIT EST Diagnosis: Type 1 diabetes mellitus with unspecified complications[ICD10: E10.8] Diagnosis: Essential (primary) hypertension[ICD10: I10] Diagnosis: Male erectile disorder[ICD10: F52.21] Diagnosis: Encounter for screening for malignant neoplasm of prostate[ICD10: Z12.5] Najma OG DO [employer] CPT-4: 75010 01/13/2018 ([id number]) OFFICE/OUTPATIENT VISIT EST Diagnosis: Type 2 diabetes mellitus without complications[ICD10: E11.9] Diagnosis: Essential (primary) hypertension[ICD10: I10] Diagnosis: Mixed hyperlipidemia[ICD10: E78.2] Najma OG [email or web address] CPT-4: 96705 10/15/2017 ([id number]) NURSE/OUTPATIENT VISIT EST Diagnosis: Type 2 diabetes mellitus without complications[ICD10: E11.9] Diagnosis: Mixed hyperlipidemia[ICD10: E78.2] Diagnosis: Essential (primary) hypertension[ICD10: I10] Diagnosis: Glossitis[ICD10: K14.0] Najma THAKKAR [email or web address] CPT-4: 01740 10/06/2017 ([id number]) OFFICE/OUTPATIENT VISIT EST Diagnosis: Type 2 diabetes mellitus without complications[ICD10: E11.9] Diagnosis: Mixed hyperlipidemia[ICD10: E78.2] Diagnosis: Essential (primary) hypertension[ICD10: I10] Najma OG [email or web address] CPT-4: 72167 03/11/2017 ([id number]) OFFICE/OUTPATIENT VISIT EST Diagnosis: Type 1 diabetes mellitus with unspecified complications[ICD10: E10.8] Diagnosis: Mixed hyperlipidemia[ICD10: E78.2] Diagnosis: Essential (primary) hypertension[ICD10: I10] Diagnosis: Other fatigue[ICD10: R53.83] Najma OG [email or web address] CPT-4: 72949 03/05/2017 ([id number]) OFFICE/OUTPATIENT VISIT EST Diagnosis: Type 2 diabetes mellitus without complications[ICD10: E11.9] Diagnosis: Mixed hyperlipidemia[ICD10: E78.2] Diagnosis: Essential (primary) hypertension[ICD10: I10] Diagnosis: Nicotine dependence, unspecified, uncomplicated[ICD10: F17.200] Najma OG [email or web address] CPT-4: 70219 07/09/2016 ([id number]) OFFICE/OUTPATIENT VISIT EST Diagnosis: Type 1 diabetes mellitus with unspecified complications[ICD10: E10.8] Diagnosis: Mixed hyperlipidemia[ICD10: E78.2] Diagnosis: Essential (primary) hypertension[ICD10: I10] Najma OG [email or web address] CPT-4: 08490 06/16/2016 ([id number]) OFFICE/OUTPATIENT VISIT EST Diagnosis: Type 2 diabetes mellitus without complications[ICD10: E11.9] Diagnosis: Mixed hyperlipidemia[ICD10: E78.2] Diagnosis: Essential (primary) hypertension[ICD10: I10] Najma OG [email or web address] CPT-4: 57118 03/10/2016 ([id number]) OFFICE/OUTPATIENT VISIT EST Diagnosis: Type 1 diabetes mellitus with unspecified complications[ICD10: E10.8] Diagnosis: Mixed hyperlipidemia[ICD10: E78.2] Diagnosis: Essential (primary) hypertension[ICD10: I10] Najma OG [email or web address] CPT-4: 99049 03/06/2016 ([id number]) OFFICE/OUTPATIENT VISIT EST Diagnosis: Bitten or stung by nonvenomous insect and other nonvenomous arthropods, subsequent encounter[ICD10: W57.XXXD] Diagnosis: Insect bite (nonvenomous), right thigh, subsequent encounter[ICD10: S70.361D] Barbara Brower NAJMA AmeenaMatilde [employer] [facility] CPT-4: 19467 11/2015 ([id number]) OFFICE/OUTPATIENT VISIT EST Diagnosis: Bitten or stung by nonvenomous insect and other nonvenomous arthropods, initial encounter[ICD10: W57.XXXA] Diagnosis: Insect bite (nonvenomous), right thigh, initial encounter[ICD10: S70.361A] Barbara Brower NAJMA AmeenaMatilde [employer] [facility] CPT-4: 37850 09/2015 ([id number]) OFFICE/OUTPATIENT VISIT EST Diagnosis: Mixed hyperlipidemia[ICD10: E78.2] Diagnosis: Essential (primary) hypertension[ICD10: I10] Diagnosis: Type 2 diabetes mellitus without complications[ICD10: E11.9] Diagnosis: Encounter for immunization[ICD10: Z23] Diagnosis: Encounter for screening for malignant neoplasm of colon[ICD10: Z12.11] Diagnosis: Abnormal weight gain[ICD10: R63.5] Barbara Brower ANUM GODINEZ [employer]ATHLE[employer] [facility] CPT-4: 40758 09/06/2015 ([id number]) OFFICE/OUTPATIENT VISIT EST Diagnosis: Type 2 diabetes mellitus without complications[ICD10: E11.9] Diagnosis: Mixed hyperlipidemia[ICD10: E78.2] Diagnosis: Essential (primary) hypertension[ICD10: I10] Diagnosis: Encounter for screening for malignant neoplasm of prostate[ICD10: Z12.5] Diagnosis: Other fatigue[ICD10: R53.83] Najma MCARTHUR [employer] [facility] CPT-4: 79669 08/31/2015 OFFICE/OUTPATIENT VISIT EST Diagnosis: Diarrhea, unspecified[ICD10: R19.7] Henrietta MCCOY [employer] [facility] CPT-4: 78625 06/29/2015 OFFICE/OUTPATIENT VISIT EST Diagnosis: PNEUMOCOCCAL VACCINE[ICD10: Z23] Diagnosis: FLU VACCINE[ICD10: Z23] Diagnosis: Essential (primary) hypertension[ICD10: I10] Diagnosis: Mixed hyperlipidemia[ICD10: E78.2] Diagnosis: Type 1 diabetes mellitus with unspecified complications[ICD10: E10.8] Diagnosis: Actinic keratosis[ICD10: L57.0] Najma Kathleenora MCARTHUR Matilda OG [employer] [facility] CPT-4: 11327 01/17/2015 ([id number]) OFFICE/OUTPATIENT VISIT EST Diagnosis: Type 2 diabetes mellitus without complications[ICD10: E11.9] Diagnosis: Impaired fasting glucose[ICD10: R73.01] Diagnosis: Mixed hyperlipidemia[ICD10: E78.2] Diagnosis: Essential (primary) hypertension[ICD10: I10] Najma MCARTHUR Matilda OG [email or web address] CPT-4: 02194 01/12/2015 ([id number]) OFFICE/OUTPATIENT VISIT EST Diagnosis: - I - HYPERLIPIDEMIA NEC/NOS[ICD9: 272.4] Diagnosis: HYPERTENSION[ICD9: 401.9] Diagnosis: DM W/O COMPLICATION TYPE II[ICD9: 250.00] Diagnosis: ACTINIC KERATOSIS[ICD9: 702.0] Najma MCARTHUR Ameena [facility] [email or web address] CPT-4: 45712 09/19/2014 ([id number]) OFFICE/OUTPATIENT VISIT EST Diagnosis: HYPERLIPIDEMIA NEC/NOS[ICD9: 272.4] Diagnosis: HYPERTENSION[ICD9: 401.9] Diagnosis: IMPAIRED FASTING GLUCOSE[ICD9: 790.21] Diagnosis: MALAISE AND FATIGUE[ICD9: 780.79] Najma Jenkins Matilda [employer] CPT-4: 46392 08/15/2014 ([id number]) OFFICE/OUTPATIENT VISIT EST Diagnosis: HYPERLIPIDEMIA NEC/NOS[ICD9: 272.4] Diagnosis: HYPERTENSION[ICD9: 401.9] Diagnosis: IMPAIRED FASTING GLUCOSE[ICD9: 790.21] Najma CHAPMAN Matilda [employer] CPT-4: 22256 12/14/2013 ([id number]) OFFICE/OUTPATIENT VISIT EST Diagnosis: Post herpetic neuralgia[ICD9: 053.19] Najma OG [facility] CPT-4: 17547 10/17/2013 OFFICE/OUTPATIENT VISIT EST Diagnosis: Shingles[ICD9: 053.9] Diagnosis: Post herpetic neuralgia[ICD9: 053.19] Jeanie OG [facility] CPT-4: 41465 09/23/2013 ([id number]) OFFICE/OUTPATIENT VISIT EST Diagnosis: HYPERTENSION[ICD9: 401.9] Diagnosis: HYPERLIPIDEMIA NEC/NOS[ICD9: 272.4] Diagnosis: IMPAIRED FASTING GLUCOSE[ICD9: 790.21] Najma OG [facility] CPT-4: 77868 06/20/2013 ([id number]) OFFICE/OUTPATIENT VISIT EST Diagnosis: HYPERLIPIDEMIA NEC/NOS[ICD9: 272.4] Diagnosis: MALAISE AND FATIGUE[ICD9: 780.79] Diagnosis: ROUTINE MEDICAL EXAM[ICD9: V70.0] Diagnosis: HYPERTENSION[ICD9: 401.9] Diagnosis: IMPAIRED FASTING GLUCOSE[ICD9: 790.21] Najma OG [facility] CPT-4: 09452 06/08/2013 ([id number]) OFFICE/OUTPATIENT VISIT EST Diagnosis: HYPERLIPIDEMIA NEC/NOS[ICD9: 272.4] Diagnosis: HYPERTENSION[ICD9: 401.9] Diagnosis: IMPAIRED FASTING GLUCOSE[ICD9: 790.21] Diagnosis: DIARRHEA[ICD9: 787.91] Najma MCARTHUR AmeenaMatilde BRITTNI Stallings [facility] CPT-4: 99817 11/25/2012 ([id number]) OFFICE/OUTPATIENT VISIT EST Diagnosis: HYPERLIPIDEMIA NEC/NOS[ICD9: 272.4] Diagnosis: HYPERTENSION[ICD9: 401.9] Diagnosis: IMPAIRED FASTING GLUCOSE[ICD9: 790.21] Diagnosis: MALAISE AND FATIGUE[ICD9: 780.79] Najma Jenkins AmeenaMatilde [facility] CPT-4: 98420 11/11/2012 OFFICE/OUTPATIENT VISIT EST Diagnosis: Fungal dermatitis[ICD9: 111.9] Diagnosis: Dry skin dermatitis[ICD9: 692.89] Henrietta Grey HEVERVICENTEER DO [facility] CPT-4: 44587 08/27/2012 ([id number]) OFFICE/OUTPATIENT VISIT EST Diagnosis: HYPERTENSION[ICD9: 401.9] Diagnosis: HYPERLIPIDEMIA NEC/NOS[ICD9: 272.4] Najma OG DO [facility] CPT-4: 56307 05/11/2012 ([id number]) OFFICE/OUTPATIENT VISIT EST Diagnosis: HYPERLIPIDEMIA NEC/NOS[ICD9: 272.4] Diagnosis: HYPERTENSION[ICD9: 401.9] Diagnosis: ROUTINE MEDICAL EXAM[ICD9: V70.0] Najma OG DO [facility] CPT-4: 23556 05/04/2012 ([id number]) OFFICE/OUTPATIENT VISIT EST Diagnosis: HYPERTENSION[ICD9: 401.9] Diagnosis: HYPERLIPIDEMIA NEC/NOS[ICD9: 272.4] Diagnosis: IMPAIRED FASTING GLUCOSE[ICD9: 790.21] Najma OG DO [facility] CPT-4: 41565 12/11/2011 ([id number]) OFFICE/OUTPATIENT VISIT EST Diagnosis: HYPERLIPIDEMIA NEC/NOS[ICD9: 272.4] Diagnosis: HYPERTENSION[ICD9: 401.9] Diagnosis: IMPAIRED FASTING GLUCOSE[ICD9: 790.21] Najma OG DO [facility] CPT-4: 73567 10/29/2011 ([id number]) OFFICE/OUTPATIENT VISIT EST Diagnosis: HYPERTENSION[ICD9: 401.9] Najma PAYAN DO [facility] CPT-4: 31391 08/14/2011 ([id number]) OFFICE/OUTPATIENT VISIT EST Diagnosis: HYPERTENSION[ICD9: 401.9] Diagnosis: IMPAIRED FASTING GLUCOSE[ICD9: 790.21] Najma OG DO [facility] CPT-4: 08246 07/29/2011 ([id number]) OFFICE/OUTPATIENT VISIT EST Diagnosis: HYPERTENSION[ICD9: 401.9] Najma PAYAN DO [facility] CPT-4: 29223 07/23/2011 ([id number]) OFFICE/OUTPATIENT VISIT EST Diagnosis: HYPERTENSION[ICD9: 401.9] Najma CLINTON CPT-4: 64015 06/24/2011 OFFICE/OUTPATIENT VISIT EST Diagnosis: HYPERTENSION[ICD9: 401.9] Najma CLINTON CPT-4: 64213 05/20/2011 OFFICE/OUTPATIENT VISIT EST Diagnosis: HYPERTENSION[ICD9: 401.9] Najma ZARATER [facility] CPT-4: 38509 04/15/2011 OFFICE/OUTPATIENT VISIT EST Diagnosis: HYPERLIPIDEMIA NEC/NOS[ICD9: 272.4] Diagnosis: IMPAIRED FASTING GLUCOSE[ICD9: 790.21] Najma OG DO [facility] CPT-4: 21822 03/18/2011 ([id number]) OFFICE/OUTPATIENT VISIT EST Najma OG DO [employer] CPT-4: 33481 07/30/2010 ([id number]) PREV VISIT, EST, AGE 40-64 Najma OG DO [employer] CPT-4: 70960 04/24/2010 Plan of Care Planned Activity Notes [...] Patient Education: escitalopram oxalate- [employer] Co upon [id number] [email or web address]/[email or web address] Completed 08/30/2019 Appointment: [facility] [phone] [id number] [facility] 08/24/2019 Visit Diagnosis Plan: Type [...] : I10 06/02/2019 Appointment: Najma Og WPtel: [address] [place] [address] US FOLLOW UP 06/02/2019 Appointment: Najma Og WPtel: [address] [place], [place] [phone] US LAB 05/24/2019 Visit Diagnosis Plan: Essential [...] ICD-10 : E78.2 01/31/2019 Appointment: Najma Ogtel: [address] [place], [place] [phone] US FOLLOW UP 01/31/2019 Appointment: Najma Og WPtel: [address] [place], [place] [phone] US LAB 01/26/2019 Appointment: Najma Og WPtel: [address] [place], [place] [phone] US LAB 09/30/2018 Visit Diagnosis Plan: Unspecified [...] : E11.9 08/19/2018 Appointment: Najma Og WPtel: [address] [place], [place] [phone] FOLLOW UP 08/19/2018 Appointment: Najma Og WPtel: [address] [place], [place] [phone] US LAB 08/16/2018 Visit Diagnosis Plan: Essential [...] : E78.2 05/10/2018 Appointment: Najma Og WPtel: [address] [place], [place] [phone] FOLLOW UP 05/10/2018 Patient Education: Low Back Pain Exercises: Illustration Completed 05/10/2018 Patient Education: Low Back Pain Exercises Completed 05/10/2018 Appointment: Najma Og WPtel: [address] [place], [place] [phone] US LAB 05/05/2018 Visit Diagnosis Plan: Type [...] : E78.2 01/19/2018 Appointment: Najma Og WPtel: [address] [place], [place] [id number] FOLLOW UP 01/19/2018 Patient Education: Patient Medication Summary Completed 01/19/2018 Appointment: Najma Og WPtel: [address] [place], [place] [id number] [place] LAB 01/13/2018 Patient Education: Patient Medication [...] : I10 10/15/2017 Appointment: Najma Og WPtel: [address] [place], [place] [phone] [place] FOLLOW UP 10/15/2017 Patient Education: Patient Medication Summary Completed 10/15/2017 Appointment: Najma Og WPtel: [address] [place], [place] [id number] [place] LAB 10/06/2017 Patient Education: Patient Medication Summary Completed 10/06/2017 Visit Diagnosis Plan: Actinic keratosis Discussion: Cr yotherapy as above ICD-9 : 702.0 ICD-10 : L57.0 04/23/2017 Appointment: Najma Og WPtel: [address] [place], [place] [id number] OFFICE SURGERY 04/23/2017 Patient Education: Patient Medication [...] : E78.2 03/11/2017 Appointment: Najma Og WPtel: [address] [place], [place] [phone] [place] FOLLOW UP 03/11/2017 Patient Education: Patient Medication Summary Completed 03/11/2017 Appointment: Najma Og WPtel: [address] [place] [id number] LAB 03/05/2017 Patient Education: Patient Medication Summary [...] : F17.200 07/09/2016 Appointment: Najma Og WPtel: [address] [place] [id number] [place] 07/08 lm ~sl 07/09 confirmed~sl FOLLOW UP 08/2016 Patient Education: Patient Medication Summary Completed 07/09/2016 Appointment: Najma Og WPtel: [address] [place] [id number] [place] LAB 06/16/2016 Patient Education: Patient Medication Summary Completed 06/16/2016 Visit Plan: Lab discussed Accjeremy shine Lifestyle change for 3mos then check CMP, HbA1C in 3mos Has had flu and pneumonia shot 03/10/2016 Appointment: Najma Og WPtel: [address] [place], [place] [phone] 03/06 confirmed `sl FOLLOW UP 03/10/2016 Patient Education: Patient Medication Summary Completed 03/10/2016 Appointment: Najma Og WPtel: [address] [place], [place] [phone] LAB 03/06/2016 Patient Education: Patient Medication Summary Completed 03/06/2016 Referral: Donavon Keller WPtel: [address] [id number] [place] Referral Completed 10/22/2015 Visit Plan: Tick bite area looks much be tter Continue current rxs and close monitoring Follow up if any new symptoms or worsening appearance 09/12/2015 Appointment: Barbara Brower [address] [place], [place] [id number] 09/10 confirmed~sl FOLLOW UP 09/12/2015 Patient Education: Patient Medication Summary Completed 09/12/2015 Visit Plan: Cover as above 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 topical steroids to calm down the inflammation(suspect most of redness is due to histamine response vs infection) Monitor closely Follow up in 2 days to recheck 09/10/2015 Appointment: Barbara Brower [address] [place] [address] ACUTE ILLNESS 09/10/2015 Patient Education: Patient Medication [...] consider shingles vaccine 09/06/2015 Appointment: Barbara Brower [address] [place], [place] [phone] FOLLOW UP 09/06/2015 Patient Education: Patient Medication Summary Completed 09/06/2015 Care Plan: Referral Order SNOMED-CT : [id number] Pending 09/06/2015 Appointment: Najma Og WPtel: [address] [place], [place] [phone] [place] LAB 08/31/2015 Patient Education: Patient Medication [...] to UC/ER. 06/29/2015 Appointment: Henrietta Lubin WPtel: [address] [place], [place] [id number] ACUTE ILLNESS 06/29/2015 Patient Education: Patient Medication Summary Completed 06/29/2015 Visit Plan: Lab discussed Will keep meds the same Discussed diet/exercise at length Cryotherapy as above to AKs of arms Flu and Prevnar 13 given Trial of revatio per patient request for ED--warned of no nitrates Recheck 4mos 01/17/2015 Appointment: Najma Og WPtel: [address] [place] [address] 01/16 confirmed~sl FOLLOW UP 01/17/2015 Patient Education: Patient Medication Summary Completed 01/17/2015 Appointment: Najma Og WPtel: [address] [place], [place] [phone] [place] LAB 01/12/2015 Patient Education: Patient Medication Summary Completed 01/12/2015 Visit Plan: Lab discussed Start accuchec ks daily Cryotherapy as above 09/19/2014 Appointment: Najma Og WPtel: [address] [place], [place] [phone] 09/18 confirmed -mf FOLLOW UP 09/19/2014 Patient Education: Patient Medication Summary Completed 09/19/2014 Appointment: Najma Og WPtel: [address] [place], [place] [phone] [place] LAB 08/15/2014 Patient Education: Patient Medication Summary Completed 08/15/2014 Appointment: Najma Og WPtel: [address] [place] [address] ACUTE ILLNESS 12/14/2013 Patient Education: Patient Medication Summary Completed 12/14/2013 Visit Plan: Patient using tylenol prn pa in Discussed possible shingles shot for booster in 9-12mos 10/17/2013 Appointment: Najma Og WPtel: [address] [place] [address] FOLLOW UP 10/17/2013 Patient Education: Patient Medication Summary Completed 10/17/2013 Appointment: Jeanie Briceño WPtel: [address] [place] [address] ACUTE ILLNESS 09/23/2013 Patient Education: Patient Medication Summary Completed 09/23/2013 Appointment: Najma Og WPtel: [address] [place] [address] BP CHECK 07/22/2013 Patient Education: Patient Medication Summary Completed 07/22/2013 Visit Plan: Lab discussed Discussed swit arun amlodopine to beta slim to see if helps with tremor BP check in 1mo 06/20/2013 Appointment: Najma Og WPtel: [address] [place] [address] 06/17 no answer FOLLOW UP 06/20/2013 Patient Education: Patient Medication Summary Completed 06/20/2013 Appointment: Najma Og WPtel: [address] [place], [place] [phone] [place] LAB 06/08/2013 Patient Education: Patient Medication Summary Completed 06/08/2013 Visit Plan: BRAT diet and yogurt and gat orade Lab discussed Continue current meds Spot checks on BS 11/25/2012 Appointment: Najma Og WPtel: [address] [place], [place] [phone] 11/24 vm FOLLOW UP 11/25/2012 Patient Education: Patient Medication Summary Completed 11/25/2012 Appointment: Najma Og WPtel: [address] [place], [place] [phone] LAB 11/11/2012 Patient Education: Patient Medication Summary Completed 11/11/2012 Appointment: Henrietta Lubin WPtel: [address] [place], [place] [phone] WORK IN 08/27/2012 Patient Education: Patient Medication Summary Completed 08/27/2012 Visit Plan: Pt going to get new home BP moniter Continue crestor and restart fish oil and will check fasting lab in 6mos Lab results discussed 05/11/2012 Appointment: Najma Og WPtel: [address] [place], [place] [phone] 05/10 FOLLOW UP 05/11/2012 Patient Education: Patient Medication Summary Completed 05/11/2012 Appointment: Najma Og WPtel: [address] [place], [place] [phone] LAB 05/04/2012 Patient Education: Patient Medication Summary Completed 05/04/2012 Visit Plan: 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 and forehead 03/02/2012 Appointment: Najma Og WPtel: [address] [place], [place] [phone] 03/01 OFFICE SURGERY 03/02/2012 Patient Education: Patient Medication Summary Completed 03/02/2012 Visit Plan: Labs discussed--recheck lab end of Feb/ of Mar Continue current meds and continue to moniter BS daily and BP 1-2 times a week Plan on cryotherapy this fall so can wear longsleeves after procedure See urology 12/11/2011 Appointment: Najma Og WPtel: [address] [place], [place] [phone] FOLLOW UP 12/11/2011 Patient Education: Patient Medication Summary Completed 12/11/2011 Appointment: Najma Og WPtel: [address] [place], [place] [phone] [place] LAB 10/29/2011 Patient Education: Patient Medication Summary Completed 10/29/2011 Appointment: Najma Og WPtel: [address] [place] [address] BP CHECK 08/14/2011 Patient Education: Patient Medication Summary Completed 08/14/2011 Appointment: Najma Og WPtel: [address] [place] [address] ACUTE ILLNESS 07/29/2011 Patient Education: Patient Medication Summary Completed 07/29/2011 Appointment: Najma Og WPtel: [address] [place] [address] BP CHECK 07/23/2011 Patient Education: Patient Medication Summary Completed 07/23/2011 Appointment: Najma Og WPtel: [address] [place] [address] BP CHECK 06/24/2011 Patient Education: Patient Medication Summary Completed 06/24/2011 Appointment: Najma Og WPtel: [address] [place] [address] BP CHECK 05/20/2011 Patient Education: Patient Medication Summary Completed 05/20/2011 Appointment: Najma Og WPtel: [address] [place] [address] BP CHECK 04/29/2011 Patient Education: Patient Medication Summary Completed 04/29/2011 Appointment: Najma Og WPtel: [address] [place] [address] BP CHECK 04/15/2011 Patient Education: Patient Medication Summary Completed 04/15/2011 Visit Plan: Continue current meds Add fi sh oil 1gm daily Glucometer given to use for accuchecks prn 03/18/2011 Appointment: Najma Og WPtel: [address] [place] [address] FOLLOW UP 03/18/2011 Patient Education: Patient Medication Summary Completed 03/18/2011 Appointment: Najma Og WPtel: [address] [place], [place] [phone] [place] LAB 03/14/2011 Patient Education: Patient Medication Summary Completed 03/14/2011 Appointment: Najma Og WPtel: [address] [place], [place] [phone] [place] LAB 11/11/2010 Appointment: Najma Og WPtel: [address] [place], [place] [phone] [place] UA 11/11/2010 Patient Education: Patient Medication Summary Completed 11/11/2010 Appointment: Najma Og WPtel: [address] [place], [place] [phone] LAB 10/29/2010 Patient Education: Patient Medication Summary Completed 10/29/2010 Appointment: Najma Og WPtel: [address] [place], [place] [phone] [place] FOLLOW UP 07/30/2010 Patient Education: Patient Medication Summary Completed 07/30/2010 Appointment: Najma Og WPtel: [address] [place], [place] [phone] [place] LAB 07/23/2010 Patient Education: Patient Medication Summary Completed 07/23/2010 Appointment: Najma Og WPtel: [address] [place], [place] [phone] LAB 04/26/2010 Patient Education: Patient Medication Summary Completed 04/26/2010 Visit Plan: Add PSA to lab Restart Crest or at 10mg daily Trial of Wellbutrin to aid in smoking cessation Check Lipids and LFTs in 3mos 04/24/2010 Appointment: Najma Og WPtel: [address] [place], [place] [phone] [place] FOLLOW UP 04/24/2010 Patient Education: Patient Medication Summary Completed 04/24/2010 Appointment: Najma Og WPtel: [address] [id number] [place] LAB 04/19/2010 Patient Education: Patient Medication Summary Completed 04/19/2010 Referral: Donavon Keller WPtel: [address] [id number] [place] Referral Completed Instructions Comment . Lab [...]
--- OUTSIDE RECORDS SUMMARY | 2019-10-14 22:34 | XMS REPORT | CCD ---
Author Author Inocente Og D.O. Organization [facility] Address [address] [place] [address] Phone Care Team Providers Care Bacteriologist Pharmaceutical Name Role Phone Najma gO D.O. PP Unavailable CCM Unavailable Summary Purpose Interface Exchange Insurance Providers Payer name Policy type / Coverage type Covered green party ID Effective Begin Date Effective End Date [employer] MEDICARE Medicare Part B [id number] Unknown [facility] Medicare Part B [id number] Un known Family history Father Diagnosis Age At Onset Diabetes mellitus Type 2 Unknown Myocardial infarction Unknown Brother Diagnosis Age At Onset Diabetes mellitus Type 2 Unknown Mother Diagnosis Age At Onset Osteoarthritis Unknown Cerebrovascular disease Unknown Social History Social History Element Codes Description Effective Dates Tobacco history SNOMED CT: 987066390 Never smoker 12/21/2014 Marital status Unknown 07/30/2010 [...] Fill Instructions escitalopram 10 mg tablet RxNorm: 054780 1 Tablet(s) Oral QD 201911/28/2019 Active fenofibrate micronized 134 mg capsule RxNorm: 380724 TA KE 1 CAPSULE BY MOUTH ONCE DAILY FOR TRIGLYCERIDES 07/08/2019 10/05/2019 Active amlodipine 5 mg tablet RxNorm: 154257 TAKE 1 TABLET BY MOUTH ON CE DAILY 06/16/2019 09/13/2019 Active metformin ER 500 mg tablet,extended release 24 hr RxNorm: 86 0975 TAKE 1 TABLET BY MOUTH ONCE DAILY 06/10/2019 09/07/2019 Active propranolol ER 80 mg capsule,24 hr,extended release RxNorm: 505318 TAKE 1 CAPSULE BY MOUTH ONCE DAILY 06/10/2019 09/07/2019 Active Vitamin D3 25 mcg (1,000 unit) capsule RxNorm: 125627 1 Capsule(s) Oral two times a day 06/02/2019 No Stop Date Active turmeric 400 mg capsule RxNorm: 1 Capsule(s) Oral QD 06/02/2019 No Stop Date Active Fish Oil 120 mg-180 mg-500 mg capsule RxNorm: 2 Capsule(s) Ora l QD 06/02/2019 No Stop Date Active 16.2 mg-0.1037 mg-0.0194 mg tablet RxNorm: 2614682 1 Tablet(s) Oral four times a day as needed abdominal pain/diarrhea 06/02/2019 No Stop D ate Active fenofibrate micronized 134 mg capsule RxNorm: 065277 1 Capsule(s) Oral QD for triglycerides 04/14/2019 07/07/2019 Inactive amlodipine 5 mg tablet RxNorm: 068234 TAKE 1 TABLET BY MOUTH ON CE DAILY 03/22/2019 06/15/2019 Inactive metformin ER 500 mg tablet,extended release 24 hr RxNorm: 86 0975 TAKE 1 TABLET BY MOUTH ONCE DAILY 03/15/2019 06/09/2019 Inactive propranolol ER 80 mg capsule,24 hr,extended release RxNorm: 123236 TAKE 1 CAPSULE BY MOUTH ONCE DAILY 03/15/2019 06/09/2019 Inactive amlodipine 5 mg tablet RxNorm: 558654 1 Tablet(s) PO QD 12/27/2018 Inactive fenofibrate micronized 134 mg capsule RxNorm: 367425 TA KE 1 CAPSULE BY MOUTH ONCE DAILY FOR TRIGLYCERIDES 10/11/2018 04/13/2019 Inactive amlodipine 5 mg tablet RxNorm: 702215 1 Tablet(s) PO QD 09/30/2018 Inactive metformin ER 500 mg tablet,extended release 24 hr RxNorm: 86 0975 TAKE 1 TABLET BY MOUTH ONCE DAILY 09/21/2018 03/14/2019 Inactive propranolol ER 80 mg capsule,24 hr,extended release RxNorm: 464610 TAKE 1 CAPSULE BY MOUTH ONCE DAILY 09/21/2018 03/14/2019 Inactive amlodipine 5 mg tablet RxNorm: 284750 1 Tablet(s) PO QD 08/25/2018 Inactive amlodipine 5 mg tablet RxNorm: 421599 1 Tablet(s) PO QD 08/25/2018 Inactive lisinopril 40 mg tablet RxNorm: 377691 TAKE 1 TABLET BY MOUTH O NCE DAILY 07/21/2018 08/24/2018 Inactive fenofibrate micronized 134 mg capsule RxNorm: 321002 TA KE 1 CAPSULE BY MOUTH ONCE DAILY FOR TRIGLYCERIDES 07/12/2018 10/10/2018 Inactive propranolol ER 80 mg capsule,24 hr,extended release RxNorm: 141590 TAKE 1 CAPSULE BY MOUTH ONCE DAILY 06/21/2018 09/20/2018 Inactive lisinopril 40 mg tablet RxNorm: 599296 TAKE 1 TABLET BY MOUTH O NCE DAILY 04/26/2018 07/20/2018 Inactive metformin ER 500 mg tablet,extended release 24 hr RxNorm: 054414 1 Tablet(s) QD 03/31/2018 09/20/2018 Inactive lisinopril 40 mg tablet RxNorm: 018614 TAKE 1 TABLET BY MOUTH O NCE DAILY 01/28/2018 04/25/2018 Inactive Vitamin D3 5,000 unit tablet RxNorm: 273742 1 Tablet(s) PO QD 01/1908/18/2018 Inactive fenofibrate micronized 134 mg capsule RxNorm: 730231 1 Capsule(s) PO QD for triglycerides 01/19/2018 07/11/2018 Inactive metformin ER 500 mg tablet,extended release 24 hr RxNorm: 761701 1 Tablet(s) QD 12/31/2017 03/30/2018 Inactive metformin ER 500 mg tablet,extended release 24 hr RxNorm: 899624 Tablet(s) 12/30/2017 12/30/2017 Inactive propranolol ER 80 mg capsule,24 hr,extended release RxNorm: 372107 1 Capsule(s) PO QD 12/17/2017 06/14/2018 Inactive metformin ER 500 mg tablet,extended release 24 hr RxNorm: 86 0975 1 Tablet(s) PO QD DUE FOR LABS AND APPT 12/02/2017 12/30/2017 Inactive Crestor 10 mg tablet RxNorm: 634087 TAKE ONE TABLET BY MOUTH ON CE DAILY 11/01/2017 01/18/2018 Inactive lisinopril 40 mg tablet RxNorm: 529849 TAKE ONE TABLET BY MOUTH ONCE DAILY [...] ER 80 mg capsule,24 hr,extended release RxNorm: 858680 1 Capsule(s) PO QD DUE FOR APPT 09/08/2017 12/17/2017 Inactive Crestor 10 mg tablet RxNorm: 690753 1 Tablet(s) PO QD T CHELSI ONE TABLET BY MOUTH DAILY 03/11/2017 09/06/2017 Inactive propranolol ER 80 mg capsule,24 hr,extended release RxNorm: 207025 1 Capsule(s) PO QD TAKE ONE CAPSULE BY MOUTH DAILY - REPLACES AMLODOPINE 03/11/2017 09/08/2017 Inactive metformin ER 500 mg tablet,extended release 24 hr RxNorm: 86 0975 1 Tablet(s) PO QD 03/11/2017 09/08/2017 Inactive lisinopril 40 mg tablet RxNorm: 710868 1 Tablet(s) PO QD 03/11/2017 0 09/06/2017 Inactive lisinopril 40 mg tablet RxNorm: 687622 1 Tablet(s) PO QD 02/16/2017 1 05/11/2016 Inactive metformin ER 500 mg tablet,extended release 24 hr RxNorm: 86 0975 1 Tablet(s) PO QD Due for labs and follow up before further refills 02/16/2017 017 Inactive propranolol ER 80 mg capsule,24 hr,extended release RxNorm: 665096 Capsule(s) TAKE ONE CAPSULE BY MOUTH DAILY - REPLACES AMLODOPINE 11/19/20162016 Inactive lisinopril 40 mg tablet RxNorm: 141567 1 Tablet(s) PO QD 11/17/2016 1 04/18/2016 Inactive metformin ER 500 mg tablet,extended release 24 hr RxNorm: 86 0975 1 Tablet(s) PO QD 11/17/2016 02/16/2017 Inactive lisinopril 40 mg tablet RxNorm: 836175 1 Tablet(s) PO Q D TAKE ONE TABLET BY MOUTH DAILY 08/19/2016 11/17/2016 Inactive metformin ER 500 mg tablet,extended release 24 hr RxNorm: 86 0975 Tablet(s) TAKE ONE TABLET BY MOUTH DAILY 08/19/2016 11/16/2016 Inactive propranolol ER 80 mg capsule,24 hr,extended release RxNorm: 326666 Capsule(s) TAKE ONE CAPSULE BY MOUTH DAILY - REPLACES AMLODOPINE 08/19/20162016 Inactive Crestor 10 mg tablet RxNorm: 450582 TAKE ONE TABLET BY MOUTH DAILY 06/16/2016 03/10/2017 Inactive lisinopril 40 mg tablet RxNorm: 711610 1 Tablet(s) PO Q D TAKE ONE TABLET BY MOUTH DAILY 05/23/2016 08/18/2016 Inactive metformin ER 500 mg tablet,extended release 24 hr RxNorm: 86 0975 TAKE ONE TABLET BY MOUTH DAILY 05/23/2016 08/19/2016 Inactive propranolol ER 80 mg capsule,24 hr,extended release RxNorm: 754954 TAKE ONE CAPSULE BY MOUTH DAILY - REPLACES AMLODOPINE 05/23/2016 08/19/[address] [facility] Crestor 10 mg tablet RxNorm: 098338 TAKE ONE TABLET BY MOUTH DAILY 03/31/2016 06/15/2016 Inactive metformin ER 500 mg tablet,extended release 24 hr RxNorm: 86 0975 TAKE ONE TABLET BY MOUTH DAILY 02/19/2016 05/22/2016 Inactive propranolol ER 80 mg capsule,24 hr,extended release RxNorm: 478019 TAKE ONE CAPSULE BY MOUTH DAILY - REPLACES AMLODOPINE 11/23/2015 05/20/2016 [facility] metformin ER 500 mg tablet,extended release 24 hr RxNorm: 86 0975 TAKE ONE TABLET BY MOUTH DAILY 11/08/2015 02/05/2016 Inactive Bactroban Nasal 2 % ointment RxNorm: 262014 Apply topic ally to affected area twice daily 09/10/2015 03/09/2016 Inactive Vibramycin 100 mg capsule RxNorm: 238055 1 Capsule(s) PO BID 201509/23/2015 Inactive lisinopril 40 mg tablet RxNorm: 489133 1 Tablet(s) PO Q D TAKE ONE TABLET BY MOUTH DAILY 08/27/2015 02/22/2016 Inactive metformin ER 500 mg tablet,extended release 24 hr RxNorm: 86 0975 TAKE ONE TABLET BY MOUTH DAILY 08/06/2015 11/03/2015 Inactive Levsin/SL 0.125 mg sublingual tablet RxNorm: 0810562 1 T ablet(s) SL Q4H as needed for stomach cramps 06/29/2015 07/03/2015 Inactive lisinopril 40 mg tablet RxNorm: 709651 Tablet(s) TAKE ONE TABLE T BY MOUTH DAILY 06/07/2015 08/26/2015 Inactive propranolol ER 80 mg capsule,24 hr,extended release RxNorm: 904055 TAKE ONE CAPSULE BY MOUTH DAILY - REPLACES AMLODOPINE 05/30/2015 11/22/2015 [facility] metformin ER 500 mg tablet,extended release 24 hr RxNorm: 86 0975 1 Tablet(s) PO QD 05/10/2015 08/05/2015 Inactive Crestor 10 mg tablet RxNorm: 049594 TAKE ONE TABLET BY MOUTH DAILY 04/18/2015 10/14/2015 Inactive metformin ER 500 mg tablet,extended release 24 hr RxNorm: 86 0975 TAKE ONE TABLET BY MOUTH DAILY 02/07/2015 05/10/2015 Inactive sildenafil 20 mg tablet RxNorm: 800786 1 Tablet(s) PO QD 01/17/2015 1 04/17/2014 Inactive propranolol ER 80 mg capsule,24 hr,extended release RxNorm: 604112 1 Capsule(s) PO QD replaces amlodopine 11/28/2014 05/26/2015 Inactive [[facility]UR[facility] -- BIN:[id number], PCN: [id number], Group: [id number], ID# [id number], Process claim through [employer]OB[employer]-LEARN, for questions: . THIS IS NOT INSURANCE.] lisinopril 40 mg tablet RxNorm: 825643 TAKE ONE TABLET BY MOUTH DAILY 11/16/2014 06/07/2015 Inactive lisinopril 40 mg tablet RxNorm: 518909 1 Tablet(s) PO QD 08/21/2014 0 11/15/2014 Inactive [AttnRPh: Saving apply/adjudicate RxGRP: [id number] RxBIN:[id number] RxPCN: ID#:[id number]] lisinopril 40 mg tablet RxNorm: 702455 1 Tablet(s) PO Q D NEEDS SEEN FOR APPOINTMENT 07/14/2014 08/21/2014 Inactive [AttnRPh: Saving apply/adjudicate RxGRP:SG20 RxBIN:[id number] RxPCN: ID#:[id number]] Crestor 10 mg tablet RxNorm: 446158 TAKE ONE TABLET BY MOUTH EV EILEEN DAY 07/06/2014 01/01/2015 Inactive metformin ER 500 mg tablet,extended release 24 hr RxNorm: 86 0975 1 Tablet(s) QD TAKE ONE TABLET BY MOUTH ONCE A DAY 06/09/2014 12/05/2014 Inactive propranolol ER 80 mg capsule,24 hr,extended release RxNorm: 349877 1 Capsule(s) PO QD replaces amlodopine 06/05/2014 11/28/2014 Inactive [[facility] -- BIN:[id number], PCN: [id number], Group: [id number], ID# [id number], Process claim through [employer]LEARN, for questions: . THIS IS NOT INSURANCE.] propranolol ER 80 mg capsule,24 hr,extended release RxNorm: 963801 1 Capsule(s) PO QD replaces amlodopine 03/07/2014 06/05/2014 Inactive [[facility] FOR UNINSURED PATIENTS -- BIN:[id number], PCN: [id number], Group: [id number], ID# [id number], Process claim through [employer]LEARN, for questions: . THIS IS NOT INSURANCE.] metformin ER 500 mg tablet,extended release 24 hr RxNorm: 86 0975 TAKE ONE TABLET BY MOUTH ONCE A DAY 12/15/2013 06/09/2014 Inactive propranolol ER 80 mg capsule,24 hr,extended release RxNorm: 932218 1 Capsule(s) PO QD replaces amlodopine 12/09/2013 03/07/2014 Inactive [[facility] FOR UNINSURED PATIENTS -- BIN:483347, PCN: [id number], Group: [id number], ID# [id number], Process claim through [employer]LEARN, for questions: . THIS IS NOT INSURANCE.] acyclovir 800 mg tablet RxNorm: 889449 1 Tablet(s) PO QID 09/23/2013 09/29/2013 Inactive gabapentin 300 mg capsule RxNorm: 076657 1 Capsule(s) PO BID 201310/07/2013 Inactive metformin ER 500 mg tablet,extended release 24 hr RxNorm: 86 0975 1 Tablet(s) PO QD 09/19/2013 12/14/2013 Inactive propranolol ER 80 mg capsule,24 hr,extended release RxNorm: 688028 1 Capsule(s) PO QD replaces amlodopine 09/15/2013 12/09/2013 Inactive metformin ER 500 mg 24 hr tablet,extended release RxNorm: 86 0975 1 Tablet(s) PO QD 09/15/2013 09/18/2013 Inactive lisinopril 40 mg tablet RxNorm: 605012 1 Tablet(s) PO QD 07/19/2013 0 07/14/2014 Inactive Crestor 10 mg tablet RxNorm: 326669 Tablet(s) PO TAKE O NE TABLET BY MOUTH EVERY DAY 07/12/2013 07/05/2014 Inactive propranolol ER 80 mg capsule,24 hr,extended release RxNorm: 317341 1 Capsule(s) PO QD replaces amlodopine 06/20/2013 09/15/2013 Inactive triamcinolone acetonide 0.1 % topical ointment RxNorm: 74933 36 Application TOP BID 06/20/2013 06/26/2013 Inactive Crestor 10 mg tablet RxNorm: 514480 1 Tablet(s) PO QD 04/18/201310/2013 Inactive Viagra 100 mg tablet RxNorm: 305773 1 Tablet(s) PO as directed 01/0508/18/2018 Inactive TAKE ONE TABLET BY MOUTH DIRECTED Crestor 10 mg tablet RxNorm: 536191 1 Tablet(s) PO QD 01/17/201304/06 Inactive metformin ER 500 mg tablet,extended release 24 hr RxNorm: 86 0975 1 Tablet(s) PO QD TAKE ONE TABLET BY MOUTH EVERY DAY 12/23/2012 09/15/2013 Inactive triamcinolone acetonide 0.1 % topical ointment RxNorm: 88937 36 Application TOP BID 08/27/2012 09/02/2012 Inactive ketoconazole 2 % topical cream RxNorm: 334074 1 Application TOP QAM 08/27/2012 09/02/2012 Inactive lisinopril 40 mg tablet RxNorm: 302731 1 Tablet(s) PO QD 07/21/2012 0 07/15/2013 Inactive Crestor 10 mg tablet RxNorm: 098680 1 Tablet(s) PO QD 07/21/201210/04 Inactive amlodipine 10 mg tablet RxNorm: 335221 1 Tablet(s) PO QHS 07/21/2012 07/15/2013 Inactive metformin ER 500 mg tablet,extended release 24 hr RxNorm: 86 0977 Tablet(s) PO TAKE ONE TABLET BY MOUTH EVERY DAY 03/31/2012 12/22/2012 Inactive lisinopril 40 mg tablet RxNorm: 342166 1 Tablet(s) PO QD 07/29/2011 0 07/20/2012 Inactive amlodipine 10 mg tablet RxNorm: 942632 1 Tablet(s) PO QHS 07/29/2011 07/20/2012 Inactive amlodipine 10 mg Tab RxNorm: 640411 1 Tablet(s) PO QHS 07/29/2011 Inactive Viagra 100 mg tablet RxNorm: 882803 1 Tablet(s) PO as directed 07/0601/24/2013 Inactive TAKE ONE TABLET BY MOUTH DIRECTED Crestor 10 mg tablet RxNorm: 623788 1 Tablet(s) PO QD 07/29/201107/05 Inactive Norvasc 5 mg Tab RxNorm: 203576 1 Tablet(s) PO QD 07/16/2011 07/28/19 12 Inactive Norvasc 5 mg Tab RxNorm: 271939 1 Tablet(s) PO QD 06/26/2011 07/15/19 12 Inactive lisinopril 40 mg Tab RxNorm: 071577 1 Tablet(s) PO QD 05/13/201107/06 Inactive metformin ER 500 mg tablet,extended release 24 hr RxNorm: 86 0977 1 Tablet(s) PO QD 03/18/2011 07/28/2011 Inactive Crestor 10 mg Tab RxNorm: 218799 1 Tablet(s) PO QHS 01/27/20112011 Inactive metformin ER 500 mg 24 hr Tab RxNorm: 366673 1 Tablet(s) PO QD 11/0403/17/2011 Inactive Viagra 100 mg Tab RxNorm: 143553 Tablet(s) PO TAKE ON E TABLET BY MOUTH DIRECTED 08/26/2010 07/28/2011 Inactive metformin ER 500 mg 24 hr Tab RxNorm: 067238 1 Tablet(s) PO QD 07/0611/18/2010 Inactive Crestor 10 mg Tab RxNorm: 906590 1 Tablet(s) PO QHS 07/30/20102010 Inactive Crestor 10 mg Tab RxNorm: 950645 1 Tablet(s) PO QHS 05/20/20102010 Inactive Wellbutrin SR 150 mg Tab RxNorm: 868733 1 Tablet(s) PO QAM 04/24/19 11 07/22/2010 Inactive Multivitamin And Mineral tablet RxNorm: 1 Tablet(s) PO QD No Start Date Active FreeStyle Lite Strips RxNorm: 1 Unit Dose Miscel laneous AC & HS check blood sugar AC and HS No Start Date Active Co Q-10 200 mg capsule RxNorm: 544600 1 Capsule(s) PO QD No Start Date Active lancets RxNorm: 1 Milliliter(s) Miscellaneous AC & HS No Start Robert e Active Vitamin D3 4,000 unit capsule RxNorm: 1553209 1 Capsule(s) PO QD No Start Date 07/08/2016 Inactive Fish Oil 360 mg-1,200 mg capsule RxNorm: 886833 2 Capsule(s) PO QD No Start Date 01/30/2019 Inactive hydrocodone 5 mg-acetaminophen 325 mg tablet RxNorm: 118588 1 Tablet(s) PO Q4H as needed for severe pain No Start Date 12/30/2015 Inactive Xanax 0.25 mg tablet RxNorm: 548286 1/2 Tablet(s) PO PRN for se andrea stress No Start Date 07/08/2016 Inactive lisinopril 40 mg Tab RxNorm: 651048 1 Tablet(s) PO QD No Start Date 0 05/12/2011 Inactive Fish Oil 1,000 mg capsule RxNorm: 1 Capsule(s) PO QD No Start Date 09/18/2014 Inactive naproxen 500 mg Tab RxNorm: 030408 1 Tablet(s) PO BID No Start Date 0 07/28/2011 Inactive aspirin 81 mg tablet RxNorm: 692998 1 Tablet(s) PO QD No Start Date 0 05/09/2018 Inactive Crestor 10 mg Tab RxNorm: 629771 1 Tablet(s) PO QD No Start Date 07/06 Inactive Crestor 5 mg tablet RxNorm: 887842 1 Tablet(s) PO QD No Start Date Inactive Fish Oil Oral RxNorm: Oral No Start Date 09/18/2014 Inactive Viagra 100 mg Tab RxNorm: 789438 1 Tablet(s) PO as directed No Star [...] [facility] Location GLYCOSYLATED HEMOGLOBIN TEST 27156 Hgb A1c 44192-8 6.6 % 0 08/24/2019 Unknown MEAN GLUC 7812958 Calc Mean Gluc 143 mg/dL 08/24/2019 Unkn own COMPREHENSIVE METABOLIC 76910 AST 24 U/L 2019 Unknown COMPREHENSIVE METABOLIC 85098 ALT 32 U/L 2019 Unknown COMPREHENSIVE METABOLIC 31490 BUN 14 mg/dL 2019 Unknown COMPREHENSIVE METABOLIC 37717 ALBUMIN 4.7 g/dL 2019 Unknown COMPREHENSIVE METABOLIC 62198 CHLORIDE 103 mmol/L 08/23 Unknown COMPREHENSIVE METABOLIC 19360 Bili Total 0.5 mg/dL 08/23 Unknown COMPREHENSIVE METABOLIC 38503 ALK PHOS 57 U/L 2019 Unknown COMPREHENSIVE METABOLIC 82483 SODIUM 140 mmol/L 08/23 Unknown COMPREHENSIVE METABOLIC 29977 CREATININE 1.20 mg/dL 08/05 Unknown COMPREHENSIVE METABOLIC 58390 CALCIUM 9.9 mg/dL 2019 Unknown COMPREHENSIVE METABOLIC 94581 POTASSIUM 4.4 mmol/L 08/23 Unknown COMPREHENSIVE METABOLIC 58696 Total Protein 6.9 g/dL Unknown COMPREHENSIVE METABOLIC 50786 Glucose 123 mg/dL 2019 Unknown COMPREHENSIVE METABOLIC 64612 Bicarbonate 25 mmol/L 08/05 Unknown COMPREHENSIVE METABOLIC 26276 AGAP 12 mmol/L 2019 Unknown GFR CALC 0112559 GFR Non Afr Amr 60 mL/min 08/24/2019 Unk nown GFR CALC 9803058 GFR Afr Amr >60 mL/min 08/24/2019 Unknow n GLYCOSYLATED HEMOGLOBIN TEST 56751 Hgb A1c 32264-3 6.7 % 0 05/24/2019 Unknown COMPREHENSIVE METABOLIC 34394 AST 21 U/L 2019 Unknown COMPREHENSIVE METABOLIC 68478 ALT 26 U/L 2019 Unknown COMPREHENSIVE METABOLIC 10690 BUN 14 mg/dL 2019 Unknown COMPREHENSIVE METABOLIC 77955 ALBUMIN 4.4 g/dL 2019 Unknown COMPREHENSIVE METABOLIC 31367 CHLORIDE 102 mmol/L 05/24 Unknown COMPREHENSIVE METABOLIC 23840 Bili Total 0.4 mg/dL 05/24 Unknown COMPREHENSIVE METABOLIC 41788 ALK PHOS 55 U/L 2019 Unknown COMPREHENSIVE METABOLIC 58054 SODIUM 139 mmol/L 05/24 Unknown COMPREHENSIVE METABOLIC 42809 CREATININE 1.28 mg/dL 05/07 Unknown COMPREHENSIVE METABOLIC 56348 CALCIUM 9.7 mg/dL 2019 Unknown COMPREHENSIVE METABOLIC 73327 POTASSIUM 4.7 mmol/L 05/24 Unknown COMPREHENSIVE METABOLIC 55570 Total Protein 6.8 g/dL Unknown COMPREHENSIVE METABOLIC 94294 Glucose 130 mg/dL 2019 Unknown COMPREHENSIVE METABOLIC 03936 Bicarbonate 29 mmol/L 05/07 Unknown COMPREHENSIVE METABOLIC 34077 AGAP 8 mmol/L 2019 Unknown MEAN GLUC 3072678 Calc Mean Gluc 146 mg/dL 05/24/2019 Unkn own GFR CALC [id number] GFR Non Afr Amr 56 mL/min 05/24/2019 Unk nown GFR CALC 5962297 GFR Afr Amr >60 mL/min 05/24/2019 Unknow n MEAN GLUC 0582619 Calc Mean Gluc 140 mg/dL 01/26/2019 Unkn own GLYCOSYLATED HEMOGLOBIN TEST 53709 Hgb A1c 67110-4 6.5 % 1 Unknown COMPREHENSIVE METABOLIC 91805 AST 17 U/L 2018 Unknown COMPREHENSIVE METABOLIC 37388 ALT 19 U/L 2018 Unknown COMPREHENSIVE METABOLIC 92804 BUN 19 mg/dL 2018 Unknown COMPREHENSIVE METABOLIC 56431 ALBUMIN 4.3 g/dL 2018 Unknown COMPREHENSIVE METABOLIC 43591 CHLORIDE 103 mmol/L 01/26 Unknown COMPREHENSIVE METABOLIC 73256 Bili Total 0.6 mg/dL 01/26 Unknown COMPREHENSIVE METABOLIC 07337 ALK PHOS 60 U/L 2018 Unknown COMPREHENSIVE METABOLIC 71655 SODIUM 140 mmol/L 01/26 Unknown COMPREHENSIVE METABOLIC 84699 CREATININE 1.21 mg/dL 01/05 Unknown COMPREHENSIVE METABOLIC 30449 CALCIUM 9.6 mg/dL 2018 Unknown COMPREHENSIVE METABOLIC 15813 POTASSIUM 4.5 mmol/L 01/26 Unknown COMPREHENSIVE METABOLIC 81331 Total Protein 6.7 g/dL Unknown COMPREHENSIVE METABOLIC 67872 Glucose 111 mg/dL 2018 Unknown COMPREHENSIVE METABOLIC 39391 Bicarbonate 28 mmol/L 01/05 Unknown COMPREHENSIVE METABOLIC 38351 AGAP 9 mmol/L 2018 Unknown COMPLETE BLOOD COUNT 9627691 WBC 10.7 10e9/L 019 Unknown COMPLETE BLOOD COUNT 8023548 RBC 4.38 10e12/L 2018 Unknown COMPLETE BLOOD COUNT 7781708 HEMOGLOBIN 13.7 g/dL 01/27/20 19 Unknown COMPLETE BLOOD COUNT 3033524 HEMATOCRIT 42.0 % 01/27/20 19 Unknown COMPLETE BLOOD COUNT 0241711 MCV 95.9 fL 9 Unknown COMPLETE BLOOD COUNT 3608828 MCH 31.3 pg 9 Unknown COMPLETE BLOOD COUNT 1076403 MCHC 32.6 g/dL 9 Unknown COMPLETE BLOOD COUNT 6222870 PLATELET COUNT 232 10e9/L Unknown COMPLETE BLOOD COUNT 6162047 Mean Plt Volume 11.4 fL Unknown COMPLETE BLOOD COUNT 7655685 Neut Auto 68.7 % 9 Unknown COMPLETE BLOOD COUNT 3576183 Lymph Auto 21.2 % 01/27/20 19 Unknown COMPLETE BLOOD COUNT 9216107 [place] Auto 8.1 % 9 Unknown COMPLETE BLOOD COUNT 8939773 RDW 14.1 % 9 Unknown COMPLETE BLOOD COUNT 5329543 Eos Auto 1.8 % 9 Unknown COMPLETE BLOOD COUNT 1472506 Baso Auto 0.2 % 9 Unknown COMPLETE BLOOD COUNT 5976549 Neutrophil Abs 7.35 10e9/L Unknown COMPLETE BLOOD COUNT 2868364 Lymphocyte Abs 2.27 10e9/L Unknown COMPLETE BLOOD COUNT 4324243 Monocyte Abs 0.87 10e9/L 01/05 Unknown COMPLETE BLOOD COUNT 3347051 Eosinophil Abs 0.19 10e9/L Unknown COMPLETE BLOOD COUNT 0742261 RDW-SD 47.7 fL 9 Unknown COMPLETE BLOOD COUNT 2269145 Basophil Abs 0.02 10e9/L 01/05 Unknown GFR CALC 0391878 GFR Non Afr Amr 59 mL/min 01/26/2019 Unk nown GFR CALC [id number] GFR Afr Amr >60 mL/min 01/26/2019 Unknow n LIPID GROUP 41734 Cholesterol 215 mg/dL 01/26/2019 Unkno wn LIPID GROUP 59149 Triglyceride 221 mg/dL 01/26/2019 Unkn own LIPID GROUP 92654 HDL CHOLESTEROL 41 mg/dL 01/26/2019 U nknown LIPID GROUP 84052 Chol/HDL Ratio 5.24 ratio 01/26/2019 U nknown LIPID GROUP 26595 NON-HDL Chol 174 mg/dL 01/26/2019 Unkn own LIPID GROUP 04417 LDL Cholesterol 130 mg/dL 01/26/2019 [place] [address] Glucose 104 mg/dL 09/30 [place] [address] CREATININE 1.18 mg/dL [place] [address] BUN 19 mg/dL 09/30 [place] [address] SODIUM 139 mmol/L 09/05 [place] [address] POTASSIUM 4.1 mmol/L 09/05 [place] [address] CHLORIDE 105 mmol/L 09/05 [place] [address] Bicarbonate 26 mmol/[place] [address] AGAP 8 mmol/L 09/30 [place] [address] CALCIUM 9.3 mg/dL 09/30 Unknown GFR CALC 3823974 GFR Non Afr Amr >60 mL/min 09/30/2018 Un known GFR CALC 1176536 GFR Afr Amr >60 mL/min 09/30/2018 Unknow n MICROALBUMIN URINE RANDOM 72116 U Microalbumin <2.0 mg/L 08/19/2018 Unknown MICROALBUMIN URINE RANDOM 92533 U Creatinine 66 mg/dL 0 08/19/2018 Unknown MICROALBUMIN URINE RANDOM 43620 ALB/CR Ratio <3.0 mg/gCR 08/19/2018 Unknown COMPREHENSIVE METABOLIC 50781 AST 21 U/L 2018 Unknown COMPREHENSIVE METABOLIC 77193 ALT 20 U/L 2018 Unknown COMPREHENSIVE METABOLIC 83304 BUN 31 mg/dL 2018 Unknown COMPREHENSIVE METABOLIC 72906 ALBUMIN 4.4 g/dL 2018 Unknown COMPREHENSIVE METABOLIC 47626 CHLORIDE 105 mmol/L 08/16 Unknown COMPREHENSIVE METABOLIC 79105 Bili Total 0.5 mg/dL 08/16 Unknown COMPREHENSIVE METABOLIC 88987 ALK PHOS 40 U/L 2018 Unknown COMPREHENSIVE METABOLIC 85409 SODIUM 140 mmol/L 08/16 Unknown COMPREHENSIVE METABOLIC 20788 CREATININE 1.45 mg/dL 08/04 Unknown COMPREHENSIVE METABOLIC 47870 CALCIUM 9.8 mg/dL 2018 Unknown COMPREHENSIVE METABOLIC 89357 POTASSIUM 5.1 mmol/L 08/16 Unknown COMPREHENSIVE METABOLIC 84262 Total Protein 6.9 g/dL Unknown COMPREHENSIVE METABOLIC 07957 Glucose 110 mg/dL 2018 Unknown COMPREHENSIVE METABOLIC 49910 Bicarbonate 25 mmol/L 08/04 Unknown COMPREHENSIVE METABOLIC 82856 AGAP 10 mmol/L 2018 Unknown GFR CALC 8555382 GFR Non Afr Amr 48 mL/min 08/16/2018 Unk nown GFR CALC 1309670 GFR Afr Amr 58 mL/min 08/16/2018 Unknown GLYCOSYLATED HEMOGLOBIN TEST 70297 Hgb A1c 99696-9 5.9 % 0 08/16/2018 Unknown LIPID GROUP 14405 Cholesterol 226 mg/dL 08/16/2018 Unkno wn LIPID GROUP 99811 Triglyceride 335 mg/dL 08/16/2018 Unkn own LIPID GROUP 08136 HDL CHOLESTEROL 32 mg/dL 08/16/2018 U nknown LIPID GROUP 78669 Chol/HDL Ratio 7.06 ratio 08/16/2018 U nknown LIPID GROUP 34249 NON-HDL Chol 194 mg/dL 08/16/2018 Unkn own LIPID GROUP 79922 LDL Cholesterol 127 mg/dL 08/16/2018 U nknown THYROID STIMULATING HORMONE 93950 TSH 2.475 uIU/mL 08/16/2018 Unknown COMPLETE BLOOD COUNT 1463102 WBC 7.5 10e9/L 08/17/19 19 Unknown COMPLETE BLOOD COUNT 8751994 RBC 4.09 10e12/L 2018 Unknown COMPLETE BLOOD COUNT [id number] HEMOGLOBIN 12.9 g/dL 08/17/19 19 Unknown COMPLETE BLOOD COUNT 7479704 HEMATOCRIT 40.0 % 08/17/19 19 Unknown COMPLETE BLOOD COUNT [id number] MCV 97.8 fL 9 Unknown COMPLETE BLOOD COUNT 1567251 MCH 31.5 pg 9 Unknown COMPLETE BLOOD COUNT 3772322 MCHC 32.3 g/dL 9 Unknown COMPLETE BLOOD COUNT [id number] PLATELET COUNT 258 10e9/L Unknown COMPLETE BLOOD COUNT [id number] Mean Plt Volume 11.4 fL Unknown COMPLETE BLOOD COUNT [id number] Neut Auto 62.9 % 9 Unknown COMPLETE BLOOD COUNT [id number] Lymph Auto 27.3 % 08/17/19 19 Unknown COMPLETE BLOOD COUNT [id number] [place] Auto 8.2 % 9 Unknown COMPLETE BLOOD COUNT [id number] Eos Auto 1.5 % 9 Unknown COMPLETE BLOOD COUNT [id number] RDW 13.3 % 9 Unknown COMPLETE BLOOD COUNT [id number] Baso Auto 0.1 % 9 Unknown COMPLETE BLOOD COUNT [id number] Neutrophil Abs 4.72 10e9/L Unknown COMPLETE BLOOD COUNT [id number] Lymphocyte Abs 2.05 10e9/L Unknown COMPLETE BLOOD COUNT [id number] Monocyte Abs 0.62 10e9/L 08/04 Unknown COMPLETE BLOOD COUNT [id number] Eosinophil Abs 0.11 10e9/L Unknown COMPLETE BLOOD COUNT [id number] RDW-SD 46.7 fL 9 Unknown COMPLETE BLOOD COUNT [id number] Basophil Abs 0.01 10e9/L 08/04 Unknown MEAN GLUC [id number] Calc Mean Gluc 123 mg/dL 08/16/2018 Unkn own L[facility] 42808 Cholesterol 212 mg/dL 05/05/2018 [facility]kno wn [facility] 88766 Triglyceride 271 mg/dL 05/05/2018 Unkn own [facility] 05692 HDL CHOLESTEROL 38 mg/dL 05/05/2018 U nknown LIPID GROUP 77603 Chol/HDL Ratio 5.58 ratio 05/05/2018 U nknown LIP[facility] GROUP 95068 NON-HDL Chol 174 mg/dL 05/05/2018 Unkn own LIP[facility] GROUP 72506 LDL Cholesterol 120 mg/dL 05/05/2018 U nknown GFR CALC 8264248 GFR Non Afr Amr 49 mL/min 05/05/2018 Unk nown GFR CALC 0037138 GFR Afr Amr 59 mL/min 05/05/2018 Unknown GLYCOSYLATED HEMOGLOBIN TEST 80805 Hgb A1c 16545-3 6.0 % 0 05/05/2018 Unknown MEAN GLUC 4170879 Calc Mean Gluc 126 mg/dL 05/05/2018 Unkn own COMPREHENSIVE METABOLIC 60899 AST 18 U/L 2018 Unknown COMPREHENSIVE METABOLIC 11156 ALT 23 U/L 2018 Unknown COMPREHENSIVE METABOLIC 62192 BUN 30 mg/dL 2018 Unknown COMPREHENSIVE METABOLIC 17021 ALBUMIN 4.3 g/dL 2018 Unknown COMPREHENSIVE METABOLIC 96288 CHLORIDE 106 mmol/L 05/05 Unknown COMPREHENSIVE METABOLIC 19058 Bili Total 0.4 mg/dL 05/05 Unknown COMPREHENSIVE METABOLIC 91205 ALK PHOS 39 U/L 2018 Unknown COMPREHENSIVE METABOLIC 54283 SODIUM 139 mmol/L 05/05 Unknown COMPREHENSIVE METABOLIC 63607 CREATININE 1.44 mg/dL 04/08 Unknown COMPREHENSIVE METABOLIC 17322 CALCIUM 9.6 mg/dL 2018 Unknown COMPREHENSIVE METABOLIC 19592 POTASSIUM 4.7 mmol/L 05/05 Unknown COMPREHENSIVE METABOLIC 28278 Total Protein 6.6 g/dL Unknown COMPREHENSIVE METABOLIC 53753 Glucose 112 mg/dL 2018 Unknown COMPREHENSIVE METABOLIC 97642 Bicarbonate 28 mmol/L 04/08 Unknown COMPREHENSIVE METABOLIC 47273 AGAP 5 mmol/L 2018 Unknown THYROID STIMULATING HORMONE 88725 TSH 3.725 uIU/mL 05/05/2018 Unknown COMPLETE BLOOD COUNT [id number] WBC 8.2 10e9/L 05/05/19 19 Unknown COMPLETE BLOOD COUNT [id number] RBC 4.02 10e12/L 2018 Unknown COMPLETE BLOOD COUNT [id number] HEMOGLOBIN 12.7 g/dL 05/05/19 19 Unknown COMPLETE BLOOD COUNT [id number] HEMATOCRIT 39.3 % 05/05/19 19 Unknown COMPLETE BLOOD COUNT [id number] MCV 97.8 fL 9 Unknown COMPLETE BLOOD COUNT 7907258 MCH 31.6 pg 9 Unknown COMPLETE BLOOD COUNT 7000658 MCHC 32.3 g/dL 9 Unknown COMPLETE BLOOD COUNT [id number] PLATELET COUNT 213 10e9/L Unknown COMPLETE BLOOD COUNT 6028069 Mean Plt Volume 11.7 fL Unknown COMPLETE BLOOD COUNT 9486561 Neut Auto 55.7 % 9 Unknown COMPLETE BLOOD COUNT 9728128 Lymph Auto 33.2 % 05/05/19 19 Unknown COMPLETE BLOOD COUNT [id number] [place] Auto 8.5 % 9 Unknown COMPLETE BLOOD COUNT 3083297 RDW 13.9 % 9 Unknown COMPLETE BLOOD COUNT 9087082 Eos Auto 2.4 % 9 Unknown COMPLETE BLOOD COUNT [id number] Baso Auto 0.2 % 9 Unknown COMPLETE BLOOD COUNT [id number] Neutrophil Abs 4.57 10e9/L Unknown COMPLETE BLOOD COUNT [id number] Lymphocyte Abs 2.72 10e9/L Unknown COMPLETE BLOOD COUNT [id number] Monocyte Abs 0.70 10e9/L 04/08 Unknown COMPLETE BLOOD COUNT [id number] Eosinophil Abs 0.20 10e9/L Unknown COMPLETE BLOOD COUNT [id number] Basophil Abs 0.02 10e9/L 04/08 Unknown COMPLETE BLOOD COUNT [id number] RDW-SD 48.8 fL 9 Unknown MICROALBUMIN URINE RANDOM 24731 U Microalbumin 19.3 mg/L 01/19/2018 Unknown MICROALBUMIN URINE RANDOM 09449 U Creatinine 96 mg/dL 1 Unknown MICROALBUMIN URINE RANDOM 97208 ALB/CR Ratio 20.1 mg/gCR 01/19/2018 Unknown LIPID GROUP 27043 Cholesterol 173 mg/dL 01/13/2018 [facility] wn [facility] 32256 Triglyceride 386 mg/dL 01/13/2018 Unkn own [facility] 34195 HDL CHOLESTEROL 37 mg/dL 01/13/2018 U nknown LIP[facility] GROUP 61538 Chol/HDL Ratio 4.68 ratio 01/13/2018 U nknown LIP[facility] GROUP 40577 NON-HDL Chol 136 mg/dL 01/13/2018 Unkn own [facility] 81857 LDL Cholesterol 59 mg/dL 01/13/2018 U nknown COMPLETE BLOOD COUNT [id number] WBC TNP:Client Request 01/13/2018 Unknown COMPLETE BLOOD COUNT [id number] RBC TNP:Client Request 01/13/2018 Unknown COMPLETE BLOOD COUNT 6667134 HEMOGLOBIN TNP:Client Request 01/13/2018 Unknown COMPLETE BLOOD COUNT [id number] HEMATOCRIT TNP:Client Request 01/13/2018 Unknown COMPLETE BLOOD COUNT [id number] MCV TNP:Client Request 01/13/2018 Unknown COMPLETE BLOOD COUNT 5557157 MCH TNP:Client Request 01/13/2018 Unknown COMPLETE BLOOD COUNT [id number] MCHC TNP:Client Request 01/13/2018 Unknown COMPLETE BLOOD COUNT 4894261 PLATELET COUNT TNP:Client Req uest 01/13/2018 Unknown COMPLETE BLOOD COUNT 1251726 Mean Plt Volume TNP:Client Re quest 01/13/2018 Unknown COMPLETE BLOOD COUNT [id number] Neut Auto TNP:Client Request 01/13/2018 Unknown COMPLETE BLOOD COUNT [id number] Lymph Auto TNP:Client Request 01/13/2018 Unknown COMPLETE BLOOD COUNT [id number] [place]on Auto TNP:Client Request 01/13/2018 Unknown COMPLETE BLOOD COUNT [id number] RDW TNP:Client Request 01/13/2018 Unknown COMPLETE BLOOD COUNT [id number] Eos Auto TNP:Client Request 01/13/2018 Unknown COMPLETE BLOOD COUNT [id number] Baso Auto TNP:Client Request 01/13/2018 Unknown COMPLETE BLOOD COUNT [id number] Neutrophil Abs TNP:Client Req uest 01/13/2018 Unknown COMPLETE BLOOD COUNT [id number] Lymphocyte Abs TNP:Client Req uest 01/13/2018 Unknown COMPLETE BLOOD COUNT [id number] Monocyte Abs TNP:Client Reque st 01/13/2018 Unknown COMPLETE BLOOD COUNT [id number] Eosinophil Abs TNP:Client Req uest 01/13/2018 Unknown COMPLETE BLOOD COUNT [id number] RDW-SD TNP:Client Request 01/13/2018 Unknown COMPLETE BLOOD COUNT [id number] Basophil Abs TNP:Client Reque st 01/13/2018 Unknown GLYCOSYLATED HEMOGLOBIN TEST 93438 Hgb A1c 28818-7 6.2 % 1 Unknown THYROID STIMULATING HORMONE 15455 TSH 2.764 uIU/mL 01/13/2018 Unknown COMPREHENSIVE METABOLIC 36613 AST 19 U/L 2017 Unknown COMPREHENSIVE METABOLIC 03147 ALT 21 U/L 2017 Unknown COMPREHENSIVE METABOLIC 03681 BUN 16 mg/dL 2017 Unknown COMPREHENSIVE METABOLIC 92526 ALBUMIN 4.2 g/dL 2017 Unknown COMPREHENSIVE METABOLIC 54761 CHLORIDE 105 mmol/L 01/13 Unknown COMPREHENSIVE METABOLIC 52579 Bili Total 0.5 mg/dL 01/13 Unknown COMPREHENSIVE METABOLIC 54985 ALK PHOS 85 U/L 2017 Unknown COMPREHENSIVE METABOLIC 67278 SODIUM 139 mmol/L 01/13 Unknown COMPREHENSIVE METABOLIC 41145 CREATININE 1.07 mg/dL 01/04 Unknown COMPREHENSIVE METABOLIC 98221 CALCIUM 9.2 mg/dL 2017 Unknown COMPREHENSIVE METABOLIC 65878 POTASSIUM 4.4 mmol/L 01/13 Unknown COMPREHENSIVE METABOLIC 13846 Total Protein 7.7 g/dL Unknown COMPREHENSIVE METABOLIC 78070 Glucose 130 mg/dL 2017 Unknown COMPREHENSIVE METABOLIC 47233 Bicarbonate 27 mmol/L 01/04 Unknown COMPREHENSIVE METABOLIC 63960 AGAP 7 mmol/L 2017 Unknown PSA EQUIMOLAR JERSON 26074 PSA Total 1.16 ng/mL 8 Unknown MEAN GLUC 0642973 Calc Mean Gluc 131 mg/dL 01/13/2018 Unkn own GFR CALC 4798702 GFR Non Afr Amr >60 mL/min 01/13/2018 Un known GFR CALC 8999018 GFR Afr Amr >60 mL/min 01/13/2018 Unknow n MEAN GLUC 2839011 Calc Mean Gluc 134 mg/dL 10/06/2017 Unkn own GFR CALC 7834265 GFR Non Afr Amr >60 mL/min 10/06/2017 Un known GFR CALC 3405369 GFR Afr Amr >60 mL/min 10/06/2017 Unknow n GLYCOSYLATED HEMOGLOBIN TEST 21057 Hgb A1c 99224-1 6.3 % 0 10/06/2017 Unknown VITAMIN B 12 30879 VITAMIN B12 1202 pg/mL 10/06/2017 Unk nown COMPLETE BLOOD COUNT [id number] WBC 7.4 10e9/L 10/07/19 18 Unknown COMPLETE BLOOD COUNT 7368179 RBC 4.24 10e12/L 2017 Unknown COMPLETE BLOOD COUNT 1681422 HEMOGLOBIN 13.5 g/dL 10/07/19 18 Unknown COMPLETE BLOOD COUNT [id number] HEMATOCRIT 41.6 % 10/07/19 18 Unknown COMPLETE BLOOD COUNT 2907751 MCV 98.1 fL 8 Unknown COMPLETE BLOOD COUNT 0405788 MCH 31.8 pg 8 Unknown COMPLETE BLOOD COUNT 8472556 MCHC 32.5 g/dL 8 Unknown COMPLETE BLOOD COUNT 4685698 PLATELET COUNT 223 10e9/L 06/2017 Unknown COMPLETE BLOOD COUNT 1931599 Mean Plt Volume 11.9 fL 06/2017 Unknown COMPLETE BLOOD COUNT 2504402 Neut Auto 58.0 % 8 Unknown COMPLETE BLOOD COUNT [id number] Lymph Auto 29.7 % 10/07/19 18 Unknown COMPLETE BLOOD COUNT 1388467 [place] Auto 8.3 % 8 Unknown COMPLETE BLOOD COUNT 4996116 RDW 14.0 % 8 Unknown COMPLETE BLOOD COUNT 6898987 Eos Auto 3.7 % 8 Unknown COMPLETE BLOOD COUNT 7881577 Baso Auto 0.3 % 8 Unknown COMPLETE BLOOD COUNT 7937717 Neutrophil Abs 4.29 10e9/L Unknown COMPLETE BLOOD COUNT [id number] Lymphocyte Abs 2.20 10e9/L Unknown COMPLETE BLOOD COUNT 5740206 Monocyte Abs 0.61 10e9/L 06/2017 Unknown COMPLETE BLOOD COUNT 3043343 Eosinophil Abs 0.27 10e9/L Unknown COMPLETE BLOOD COUNT 0685419 RDW-SD 48.6 fL 8 Unknown COMPLETE BLOOD COUNT 6793547 Basophil Abs 0.02 10e9/L 06/2017 Unknown LIPID GROUP 57878 Cholesterol 216 mg/dL 10/06/2017 [facility]kno wn [facility] 03889 Triglyceride 335 mg/dL 10/06/2017 Unkn own [facility] 30871 HDL CHOLESTEROL 33 mg/dL 10/06/2017 U nknown LIPID GROUP 42438 Chol/HDL Ratio 6.55 ratio 10/06/2017 U nknown LIPID GROUP 52384 NON-HDL Chol 183 mg/dL 10/06/2017 Unkn own LIP[facility] GROUP 32881 LDL Cholesterol 116 mg/dL 10/06/2017 U nknown COMPREHENSIVE METABOLIC 09233 AST 15 U/L 2017 Unknown COMPREHENSIVE METABOLIC 06352 ALT 15 U/L 2017 Unknown COMPREHENSIVE METABOLIC 31609 BUN 21 mg/dL 2017 Unknown COMPREHENSIVE METABOLIC 68669 ALBUMIN 4.1 g/dL 2017 Unknown COMPREHENSIVE METABOLIC 33077 CHLORIDE 107 mmol/L 10/06 Unknown COMPREHENSIVE METABOLIC 30144 Bili Total 0.6 mg/dL 10/06 Unknown COMPREHENSIVE METABOLIC 71323 ALK PHOS 68 U/L 2017 Unknown COMPREHENSIVE METABOLIC 65111 SODIUM 140 mmol/L 10/06 Unknown COMPREHENSIVE METABOLIC 61274 CREATININE 1.12 mg/dL 06/2017 Unknown COMPREHENSIVE METABOLIC 25774 CALCIUM 9.7 mg/dL 2017 Unknown COMPREHENSIVE METABOLIC 48563 POTASSIUM 4.6 mmol/L 10/06 Unknown COMPREHENSIVE METABOLIC 28267 Total Protein 6.6 g/dL Unknown COMPREHENSIVE METABOLIC 40740 Glucose 114 mg/dL 2017 Unknown COMPREHENSIVE METABOLIC 40738 Bicarbonate 26 mmol/L 06/2017 Unknown COMPREHENSIVE METABOLIC 39054 AGAP 7 mmol/L 2017 Unknown GLYCOSYLATED HEMOGLOBIN TEST 49279 Hgb A1c 61409-9 6.1 % 1 05/05/2016 Unknown GFR CALC 1259662 GFR Non Afr Amr >60 mL/min 03/05/2017 Un known GFR CALC 9562472 GFR Afr Amr >60 mL/min 03/05/2017 Unknow n MEAN GLUC 3609917 Calc Mean Gluc 128 mg/dL 03/05/2017 Unkn own COMPREHENSIVE METABOLIC 52444 AST 18 U/L 2016 Unknown COMPREHENSIVE METABOLIC 22045 ALT 20 U/L 2016 Unknown COMPREHENSIVE METABOLIC 19088 BUN 15 mg/dL 2016 Unknown COMPREHENSIVE METABOLIC 37109 ALBUMIN 4.3 g/dL 2016 Unknown COMPREHENSIVE METABOLIC 64783 CHLORIDE 105 mmol/L 03/05 Unknown COMPREHENSIVE METABOLIC 08950 Bili Total 0.5 mg/dL 03/05 Unknown COMPREHENSIVE METABOLIC 56522 ALK PHOS 57 U/L 2016 Unknown COMPREHENSIVE METABOLIC 59113 SODIUM 141 mmol/L 03/05 Unknown COMPREHENSIVE METABOLIC 38264 CREATININE 1.07 mg/dL 02/06 Unknown COMPREHENSIVE METABOLIC 01298 CALCIUM 9.3 mg/dL 2016 Unknown COMPREHENSIVE METABOLIC 73362 POTASSIUM 4.8 mmol/L 03/05 Unknown COMPREHENSIVE METABOLIC 91056 Total Protein 6.2 g/dL Unknown COMPREHENSIVE METABOLIC 30717 Glucose 118 mg/dL 2016 Unknown COMPREHENSIVE METABOLIC 41041 Bicarbonate 29 mmol/L 02/06 Unknown COMPREHENSIVE METABOLIC 61580 AGAP 7 mmol/L 2016 Unknown FREE T4 74139 T4 Free 1.38 ng/dL 03/05/2017 Unknown COMPLETE BLOOD COUNT [id number] WBC 8.4 10e9/L 03/05/20 17 Unknown COMPLETE BLOOD COUNT [id number] RBC 4.11 10e12/L 2016 Unknown COMPLETE BLOOD COUNT 8979647 HEMOGLOBIN 12.8 g/dL 03/05/20 17 Unknown COMPLETE BLOOD COUNT 5582675 HEMATOCRIT 40.1 % 03/05/20 17 Unknown COMPLETE BLOOD COUNT 1192011 MCV 97.6 fL 7 Unknown COMPLETE BLOOD COUNT 2738376 MCH 31.1 pg 7 Unknown COMPLETE BLOOD COUNT 7256200 MCHC 31.9 g/dL 7 Unknown COMPLETE BLOOD COUNT 9552860 PLATELET COUNT 184 10e9/L Unknown COMPLETE BLOOD COUNT 0273741 Mean Plt Volume 11.3 fL Unknown COMPLETE BLOOD COUNT 9169701 Neut Auto 62.5 % 7 Unknown COMPLETE BLOOD COUNT 9392705 Lymph Auto 26.4 % 03/05/20 17 Unknown COMPLETE BLOOD COUNT 8686605 [place] Auto 7.9 % 7 Unknown COMPLETE BLOOD COUNT 3526678 RDW 13.5 % 7 Unknown COMPLETE BLOOD COUNT 7513651 Eos Auto 3.0 % 7 Unknown COMPLETE BLOOD COUNT 1847947 Baso Auto 0.2 % 7 Unknown COMPLETE BLOOD COUNT 9029644 Neutrophil Abs 5.25 10e9/L Unknown COMPLETE BLOOD COUNT 8176062 Lymphocyte Abs 2.22 10e9/L Unknown COMPLETE BLOOD COUNT [id number] Monocyte Abs 0.66 10e9/L 02/06 Unknown COMPLETE BLOOD COUNT 4122772 Eosinophil Abs 0.25 10e9/L Unknown COMPLETE BLOOD COUNT 9334222 RDW-SD 46.7 fL 7 Unknown COMPLETE BLOOD COUNT [id number] Basophil Abs 0.02 10e9/L 02/06 Unknown THYROID STIMULATING HORMONE 40323 TSH 2.330 uIU/mL 03/05/2017 Unknown LIPID GROUP 81740 Cholesterol 135 mg/dL 03/05/2017 Unkno wn LIPID GROUP 52460 Triglyceride 297 mg/dL 03/05/2017 Unkn own LIPID GROUP 31384 HDL CHOLESTEROL 34 mg/dL 03/05/2017 U nknown LIPID GROUP 41105 Chol/HDL Ratio 3.97 ratio 03/05/2017 U nknown LIPID GROUP 78259 NON-HDL Chol 101 mg/dL 03/05/2017 Unkn own LIPID GROUP 41573 LDL Cholesterol 42 mg/dL 03/05/2017 U nknown GLYCOSYLATED HEMOGLOBIN TEST 48379 Hgb A1c 46179-2 6.5 % 1 05/07/2015 Unknown GFR CALC 2384813 GFR Non Afr Amr 55 mL/min 03/06/2016 Unk nown GFR CALC 3118845 GFR Afr Amr >60 mL/min 03/06/2016 Unknow n COMPLETE BLOOD COUNT 5251649 WBC 8.5 10e9/L 03/06/20 16 Unknown COMPLETE BLOOD COUNT [id number] RBC 4.32 10e12/L 2015 Unknown COMPLETE BLOOD COUNT 2929948 HEMOGLOBIN 13.5 g/dL 03/06/20 16 Unknown COMPLETE BLOOD COUNT 2509214 HEMATOCRIT 41.3 % 03/06/20 16 Unknown COMPLETE BLOOD COUNT 5294287 MCV 95.6 fL 6 Unknown COMPLETE BLOOD COUNT 4571757 MCH 31.3 pg 6 Unknown COMPLETE BLOOD COUNT 4536216 MCHC 32.7 g/dL 6 Unknown COMPLETE BLOOD COUNT 9147414 PLATELET COUNT 191 10e9/L 04/2015 Unknown COMPLETE BLOOD COUNT 9860363 Mean Plt Volume 11.7 fL 04/2015 Unknown COMPLETE BLOOD COUNT 2294541 Neut Auto 64.2 % 6 Unknown COMPLETE BLOOD COUNT 1532080 Lymph Auto 25.9 % 03/06/20 16 Unknown COMPLETE BLOOD COUNT 0289543 [place] Auto 7.8 % 6 Unknown COMPLETE BLOOD COUNT 2332217 RDW 13.4 % 6 Unknown COMPLETE BLOOD COUNT 7897242 Eos Auto 2.0 % 6 Unknown COMPLETE BLOOD COUNT 4385085 Baso Auto 0.1 % 6 Unknown COMPLETE BLOOD COUNT 8184599 Neutrophil Abs 5.46 10e9/L Unknown COMPLETE BLOOD COUNT 9078771 Lymphocyte Abs 2.20 10e9/L Unknown COMPLETE BLOOD COUNT 2578084 Monocyte Abs 0.66 10e9/L 04/2015 Unknown COMPLETE BLOOD COUNT [id number] Eosinophil Abs 0.17 10e9/L Unknown COMPLETE BLOOD COUNT [id number] RDW-SD 45.0 fL 6 Unknown COMPLETE BLOOD COUNT [id number] Basophil Abs 0.01 10e9/L 04/2015 Unknown FREE T4 89506 T4 Free 1.34 ng/dL 03/06/2016 Unknown MEAN GLUC 9474284 Calc Mean Gluc 140 mg/dL 03/06/2016 Unkn own COMPREHENSIVE METABOLIC 91365 AST 15 U/L 2015 Unknown COMPREHENSIVE METABOLIC 23301 ALT 18 U/L 2015 Unknown COMPREHENSIVE METABOLIC 60388 BUN 21 mg/dL 2015 Unknown COMPREHENSIVE METABOLIC 85735 ALBUMIN 4.3 g/dL 2015 Unknown COMPREHENSIVE METABOLIC 77949 CHLORIDE 103 mmol/L 03/06 Unknown COMPREHENSIVE METABOLIC 90609 Bili Total 0.4 mg/dL 03/06 Unknown COMPREHENSIVE METABOLIC 63086 ALK PHOS 68 U/L 2015 Unknown COMPREHENSIVE METABOLIC 93637 SODIUM 140 mmol/L 03/06 Unknown COMPREHENSIVE METABOLIC 57088 CREATININE 1.31 mg/dL 04/2015 Unknown COMPREHENSIVE METABOLIC 08252 CALCIUM 9.4 mg/dL 2015 Unknown COMPREHENSIVE METABOLIC 52365 POTASSIUM 4.8 mmol/L 03/06 Unknown COMPREHENSIVE METABOLIC 81991 Total Protein 6.6 g/dL Unknown COMPREHENSIVE METABOLIC 30638 Glucose 142 mg/dL 2015 Unknown COMPREHENSIVE METABOLIC 85313 Bicarbonate 29 mmol/L 04/2015 Unknown COMPREHENSIVE METABOLIC 10017 AGAP 8 mmol/L 2015 Unknown THYROID STIMULATING HORMONE 64586 TSH 2.288 uIU/mL 03/06/2016 Unknown LIPID GROUP 98577 Cholesterol 154 mg/dL 03/06/2016 Unkno wn LIPID GROUP 09886 Triglyceride 266 mg/dL 03/06/2016 Unkn own LIPID GROUP 32926 HDL CHOLESTEROL 38 mg/dL 03/06/2016 U nknown LIPID GROUP 19029 Chol/HDL Ratio 4.05 ratio 03/06/2016 U nknown LIPID GROUP 89861 NON-HDL Chol 116 mg/dL 03/06/2016 Unkn own LIPID GROUP 39405 LDL Cholesterol 63 mg/dL 03/06/2016 U nkno MEAN GLUC 2743717 Mean Glucose 128 mg/dL 08/31/2015 Unknow n COMPLETE BLOOD COUNT 9062827 WBC 8.4 10e9/L 08/31/19 16 Unknown COMPLETE BLOOD COUNT [id number] RBC 4.12 10e12/L 2015 Unknown COMPLETE BLOOD COUNT 1582207 HEMOGLOBIN 12.8 g/dL 08/31/19 16 Unknown COMPLETE BLOOD COUNT 5856845 HEMATOCRIT 39.6 % 08/31/19 16 Unknown COMPLETE BLOOD COUNT 8121849 MCV 96.1 fL 6 Unknown COMPLETE BLOOD COUNT 7187625 MCH 31.1 pg 6 Unknown COMPLETE BLOOD COUNT 7199002 MCHC 32.3 g/dL 6 Unknown COMPLETE BLOOD COUNT 7670058 PLATELET COUNT 184 10e9/L Unknown COMPLETE BLOOD COUNT 2756585 Mean Plt Volume 12.0 fL Unknown COMPLETE BLOOD COUNT 8622875 Neut Auto 59.8 % 6 Unknown COMPLETE BLOOD COUNT 9393188 Lymph Auto 27.9 % 08/31/19 16 Unknown COMPLETE BLOOD COUNT 7255703 [place] Auto 9.1 % 6 Unknown COMPLETE BLOOD COUNT 4522666 RDW 13.6 % 6 Unknown COMPLETE BLOOD COUNT 7830006 Eos Auto 3.1 % 6 Unknown COMPLETE BLOOD COUNT 2386402 Baso Auto 0.1 % 6 Unknown COMPLETE BLOOD COUNT 4650330 Neutrophil Abs 5.02 10e9/L Unknown COMPLETE BLOOD COUNT 1235877 Lymphoctye Abs 2.34 10e9/L Unknown COMPLETE BLOOD COUNT 2797050 Monocyte Abs 0.76 10e9/L 08/05 Unknown COMPLETE BLOOD COUNT 0040408 Eosinophil Abs 0.26 10e9/L Unknown COMPLETE BLOOD COUNT 2754595 Basophil Abs 0.01 10e9/L 08/05 Unknown COMPLETE BLOOD COUNT 1636889 RDW-SD 46.3 fL 6 Unknown GLYCOSYLATED HEMOGLOBIN TEST 22317 Hgb A1c 52127-0 6.1 % 0 08/31/2015 Unknown GFR CALC 7030384 GFR Afr Amr >60 mL/min 08/31/2015 Unknow n GFR CALC 6478340 GFR Non Afr Amr >60 mL/min 08/31/2015 Un known FREE T4 15708 T4 Free 1.21 ng/dL 08/31/2015 Unknown THYROID STIMULATING HORMONE 57326 TSH 2.988 uIU/mL 08/31/2015 Unknown COMPREHENSIVE METABOLIC 81148 AST 16 U/L 2015 Unknown COMPREHENSIVE METABOLIC 70989 ALT 19 U/L 2015 Unknown COMPREHENSIVE METABOLIC 51158 BUN 17 mg/dL 2015 Unknown COMPREHENSIVE METABOLIC 61334 ALBUMIN 4.3 g/dL 2015 Unknown COMPREHENSIVE METABOLIC 93224 CHLORIDE 107 mmol/L 08/30 Unknown COMPREHENSIVE METABOLIC 09744 Bili Total 0.4 mg/dL 08/30 Unknown COMPREHENSIVE METABOLIC 71998 ALK PHOS 66 U/L 2015 Unknown COMPREHENSIVE METABOLIC 99610 SODIUM 140 mmol/L 08/30 Unknown COMPREHENSIVE METABOLIC 98804 CREATININE 1.07 mg/dL 08/05 Unknown COMPREHENSIVE METABOLIC 26368 CALCIUM 9.5 mg/dL 2015 Unknown COMPREHENSIVE METABOLIC 47855 POTASSIUM 4.5 mmol/L 08/30 Unknown COMPREHENSIVE METABOLIC 73122 Total Protein 6.7 g/dL Unknown COMPREHENSIVE METABOLIC 78760 Glucose 122 mg/dL 2015 Unknown COMPREHENSIVE METABOLIC 80730 Bicarbonate 26 mmol/L 08/05 Unknown COMPREHENSIVE METABOLIC 86717 AGAP 7 mmol/L 2015 Unknown LIPID GROUP 27182 Cholesterol 171 mg/dL 08/31/2015 Unkno wn LIPID GROUP 92041 Triglyceride 428 mg/dL 08/31/2015 Unkn own LIPID GROUP 50977 HDL CHOLESTEROL 35 mg/dL 08/31/2015 U nknown LIPID GROUP 26780 Chol/HDL Ratio 4.89 ratio 08/31/2015 U nknown LIPID GROUP 67717 NON-HDL Chol 136 mg/dL 08/31/2015 Unkn own LIPID GROUP 91146 LDL Cholesterol 50 mg/dL 08/31/2015 U nknown PSA EQUIMOLAR JERSON 49232 PSA Total 0.47 ng/mL 6 Unknown GFR CALC 2641446 GFR AA >60 ML/MIN 01/12/2015 Unknown GFR CALC 2377671 GFR NON-AA >60 ML/MIN 01/12/2015 Unknown COMPREHENSIVE METABOLIC 93363 AST 18 U/L 2014 Unknown COMPREHENSIVE METABOLIC 19041 ALT 19 IU/L 2014 Unknown COMPREHENSIVE METABOLIC 46611 BUN 19 MG/DL 2014 Unknown COMPREHENSIVE METABOLIC 09780 ALBUMIN 4.7 GM/DL 2014 Unknown COMPREHENSIVE METABOLIC 68082 CHLORIDE 104 MMOL/L 01/12 Unknown COMPREHENSIVE METABOLIC 60039 BILI TOT 0.8 MG/DL 2014 Unknown COMPREHENSIVE METABOLIC 88906 ALK PHOS 58 U/L 2014 Unknown COMPREHENSIVE METABOLIC 23802 SODIUM 139 MMOL/L 01/12 Unknown COMPREHENSIVE METABOLIC 79275 CREATININE 1.09 MG/DL 12/2014 Unknown COMPREHENSIVE METABOLIC 14179 CALCIUM 9.6 MG/DL 2014 Unknown COMPREHENSIVE METABOLIC 87710 POTASSIUM 4.4 MMOL/L 01/12 Unknown COMPREHENSIVE METABOLIC 45442 PROT TOT 6.7 GM/DL 2014 Unknown COMPREHENSIVE METABOLIC 47375 Glucose 109 MG/DL 2014 Unknown COMPREHENSIVE METABOLIC 11230 BICARB 27 MMOL/L 2014 Unknown COMPREHENSIVE METABOLIC 91710 ANION GAP 8 MEQ/L 2014 Unknown LIPID GROUP 71230 HDL TEST 36 MG/DL 01/12/2015 Unknown LIPID GROUP 68243 TRIG 220 MG/DL 01/12/2015 Unknown LIPID GROUP 75608 TEST LDL 58 MG/DL 01/12/2015 Unknown LIPID GROUP 98127 CHOL 138 MG/DL 01/12/2015 Unknown LIPID GROUP 16721 RCHOL/HDL 3.83 RATIO 01/12/2015 Unknow n LIPID GROUP 26544 NON-HDL CH 102 MG/DL 01/12/2015 Unknow n GLYCOSYLATED HEMOGLOBIN TEST 61338 A1C HPLC 70102-9 6.1 % 1 Unknown COMPLETE BLOOD COUNT 4654594 WBC 7.1 10e9/L 01/13/20 15 Unknown COMPLETE BLOOD COUNT 9803860 RBC 4.38 10e12/L 2014 Unknown COMPLETE BLOOD COUNT 6602370 HGB 13.7 g/dL 5 Unknown COMPLETE BLOOD COUNT 4042350 HCT DET 41.3 % 5 Unknown COMPLETE BLOOD COUNT 6950067 MCV 94.3 fL 5 Unknown COMPLETE BLOOD COUNT 3281357 MCH 31.3 pg 5 Unknown COMPLETE BLOOD COUNT 3121893 MCHC 33.2 g/dL 5 Unknown COMPLETE BLOOD COUNT 0165440 PLT 174 10e9/L 01/13/20 15 Unknown COMPLETE BLOOD COUNT 7792500 MPV 11.8 fL 5 Unknown COMPLETE BLOOD COUNT 4377347 SAMIR % 61.3 % 5 Unknown COMPLETE BLOOD COUNT 4185426 LY % 28.3 % 5 Unknown COMPLETE BLOOD COUNT 0066519 MON % 7.6 % 5 Unknown COMPLETE BLOOD COUNT 6146586 EOS % 2.7 % 5 Unknown COMPLETE BLOOD COUNT 4776169 BASO % 0.1 % 5 Unknown COMPLETE BLOOD COUNT 9129337 RDW 13.1 % 5 Unknown COMPLETE BLOOD COUNT 4743863 ABS SAMIR 4.35 10e9/L 015 Unknown COMPLETE BLOOD COUNT 5451227 ABS LYMPH 2.01 10e9/L 015 Unknown COMPLETE BLOOD COUNT 3582359 ABS MONO 0.54 10e9/L 015 Unknown COMPLETE BLOOD COUNT 7696660 ABS EOS 0.19 10e9/L 015 Unknown COMPLETE BLOOD COUNT 0816265 ABS BASO 0.01 10e9/L 015 Unknown COMPLETE BLOOD COUNT 2232000 RDW-SD 43.9 fL 5 Unknown GLYCOSYLATED HEMOGLOBIN TEST 98993 A1C HPLC 99973-0 6.1 % 0 08/15/2014 Unknown COMPLETE BLOOD COUNT 1379305 WBC 9.7 10e9/L 08/16/19 15 Unknown COMPLETE BLOOD COUNT 3914386 RBC 4.29 10e12/L 2014 Unknown COMPLETE BLOOD COUNT 5392638 HGB 13.3 g/dL 5 Unknown COMPLETE BLOOD COUNT 3120175 HCT DET 40.5 % 5 Unknown COMPLETE BLOOD COUNT 9262029 MCV 94.4 fL 5 Unknown COMPLETE BLOOD COUNT 8452811 MCH 31.0 pg 5 Unknown COMPLETE BLOOD COUNT 8293778 MCHC 32.8 g/dL 5 Unknown COMPLETE BLOOD COUNT 3961796 PLT 227 10e9/L 08/16/19 15 Unknown COMPLETE BLOOD COUNT [id number] MPV 11.0 fL 5 Unknown COMPLETE BLOOD COUNT [id number] SAMIR % 66.4 % 5 Unknown COMPLETE BLOOD COUNT [id number] LY % 23.7 % 5 Unknown COMPLETE BLOOD COUNT [id number] MON % 8.1 % 5 Unknown COMPLETE BLOOD COUNT [id number] EOS % 1.6 % 5 Unknown COMPLETE BLOOD COUNT [id number] BASO % 0.2 % 5 Unknown COMPLETE BLOOD COUNT [id number] RDW 13.4 % 5 Unknown COMPLETE BLOOD COUNT [id number] ABS SAMIR 6.44 10e9/L 015 Unknown COMPLETE BLOOD COUNT [id number] ABS LYMPH 2.30 10e9/L 015 Unknown COMPLETE BLOOD COUNT [id number] ABS MONO 0.79 10e9/L 015 Unknown COMPLETE BLOOD COUNT [id number] ABS EOS 0.16 10e9/L 015 Unknown COMPLETE BLOOD COUNT [id number] ABS BASO 0.02 10e9/L 015 Unknown COMPLETE BLOOD COUNT [id number] RDW-SD 44.7 fL 5 Unknown COMPREHENSIVE METABOLIC 94100 AST 17 U/L 2014 Unknown COMPREHENSIVE METABOLIC 10595 ALT 23 IU/L 2014 Unknown COMPREHENSIVE METABOLIC 99368 BUN 16 MG/DL 2014 Unknown COMPREHENSIVE METABOLIC 85653 ALBUMIN 4.3 GM/DL 2014 Unknown COMPREHENSIVE METABOLIC 17256 CHLORIDE 107 MMOL/L 08/15 Unknown COMPREHENSIVE METABOLIC 01459 BILI TOT 0.4 MG/DL 2014 Unknown COMPREHENSIVE METABOLIC 69559 ALK PHOS 91 U/L 2014 Unknown COMPREHENSIVE METABOLIC 89217 SODIUM 139 MMOL/L 08/15 Unknown COMPREHENSIVE METABOLIC 77568 CREATININE 1.07 MG/DL 08/04 Unknown COMPREHENSIVE METABOLIC 22255 CALCIUM 9.6 MG/DL 2014 Unknown COMPREHENSIVE METABOLIC 26603 POTASSIUM 4.6 MMOL/L 08/15 Unknown COMPREHENSIVE METABOLIC 29072 PROT TOT 6.7 GM/DL 2014 Unknown COMPREHENSIVE METABOLIC 45509 Glucose 111 MG/DL 2014 Unknown COMPREHENSIVE METABOLIC 02750 BICARB 27 MMOL/L 2014 Unknown COMPREHENSIVE METABOLIC 44832 ANION GAP 5 MEQ/L 2014 Unknown GFR CALC [id number] GFR AA >60 ML/MIN 08/15/2014 Unknown GFR CALC [id number] GFR NON-AA >60 ML/MIN 08/15/2014 Unknown THYROID STIMULATING HORMONE 43241 TSH 1.598 uIU/ML 08/15/2014 Unknown LIPID GROUP 84109 HDL TEST 33 MG/DL 08/15/2014 Unknown LIPID GROUP 36249 TRIG 187 MG/DL 08/15/2014 Unknown LIPID GROUP 80953 TEST LDL 58 MG/DL 08/15/2014 Unknown [facility] 04406 CHOL 128 MG/DL 08/15/2014 Unknown LIPID GROUP 97199 RCHOL/HDL 3.88 RATIO 08/15/2014 Unknow n LIPID GROUP 00796 NON-HDL CH 95 MG/DL 08/15/2014 Unknow n PSA EQUIMOLAR JERSON 86694 PSA EQ 0.70 NG/ML 5 Unknown FREE T4 86217 FREE T4 1.32 NG/DL 08/15/2014 Unknown GFR CALC 1364497 GFR AA >60 ML/MIN 12/14/2013 Unknown GFR CALC 0776813 GFR NON-AA 58.0L ML/MIN 12/14/2013 Unkno wn COMPLETE BLOOD COUNT 3266851 WBC 8.7 10e9/L 12/15/19 14 Unknown COMPLETE BLOOD COUNT [id number] RBC 4.32 10e12/L 2013 Unknown COMPLETE BLOOD COUNT 5842040 HGB 13.5 g/dL 4 Unknown COMPLETE BLOOD COUNT [id number] HCT DET 40.6 % 4 Unknown COMPLETE BLOOD COUNT 3563717 MCV 94.0 fL 4 Unknown COMPLETE BLOOD COUNT 8546479 MCH 31.3 pg 4 Unknown COMPLETE BLOOD COUNT 7309461 MCHC 33.3 g/dL 4 Unknown COMPLETE BLOOD COUNT [id number] PLT 205 10e9/L 12/15/19 14 Unknown COMPLETE BLOOD COUNT 0447659 MPV 11.7 fL 4 Unknown COMPLETE BLOOD COUNT 2920382 SAMIR % 62.5 % 4 Unknown COMPLETE BLOOD COUNT 9609012 LY % 26.9 % 4 Unknown COMPLETE BLOOD COUNT 7344791 MON % 8.8 % 4 Unknown COMPLETE BLOOD COUNT 1843585 EOS % 1.7 % 4 Unknown COMPLETE BLOOD COUNT 8034739 BASO % 0.1 % 4 Unknown COMPLETE BLOOD COUNT 2536156 RDW 13.4 % 4 Unknown COMPLETE BLOOD COUNT 8605150 ABS SAMIR 5.44 10e9/L 014 Unknown COMPLETE BLOOD COUNT 3142142 ABS LYMPH 2.34 10e9/L 014 Unknown COMPLETE BLOOD COUNT 3294156 ABS MONO 0.77 10e9/L 014 Unknown COMPLETE BLOOD COUNT [id number] ABS EOS 0.15 10e9/L 014 Unknown COMPLETE BLOOD COUNT 6811092 ABS BASO 0.01 10e9/L 014 Unknown COMPLETE BLOOD COUNT 1117926 RDW-SD 44.7 fL 4 Unknown COMPREHENSIVE METABOLIC 90906 AST 14 U/L 2013 Unknown COMPREHENSIVE METABOLIC 29725 ALT 12 IU/L 2013 Unknown COMPREHENSIVE METABOLIC 17258 BUN 24 MG/DL 2013 Unknown COMPREHENSIVE METABOLIC 79524 ALBUMIN 4.5 GM/DL 2013 Unknown COMPREHENSIVE METABOLIC 58668 CHLORIDE 104 MMOL/L 12/14 Unknown COMPREHENSIVE METABOLIC 56668 BILI TOT 0.6 MG/DL 2013 Unknown COMPREHENSIVE METABOLIC 82992 ALK PHOS 82 U/L 2013 Unknown COMPREHENSIVE METABOLIC 28289 SODIUM 135 MMOL/L 12/14 Unknown COMPREHENSIVE METABOLIC 51616 CREATININE 1.25 MG/DL 12/05 Unknown COMPREHENSIVE METABOLIC 58764 CALCIUM 9.8 MG/DL 2013 Unknown COMPREHENSIVE METABOLIC 35503 POTASSIUM 4.7 MMOL/L 12/14 Unknown COMPREHENSIVE METABOLIC 37501 PROT TOT 6.7 GM/DL 2013 Unknown COMPREHENSIVE METABOLIC 33701 Glucose 126 MG/DL 2013 Unknown COMPREHENSIVE METABOLIC 55372 BICARB 27 MMOL/L 2013 Unknown COMPREHENSIVE METABOLIC 78526 ANION GAP 4 MEQ/L 2013 Unknown THYROID STIMULATING HORMONE 66654 TSH 3.281 uIU/ML 12/14/2013 Unknown FREE T4 04325 FREE T4 1.28 NG/DL 12/14/2013 Unknown LIP[facility] GROUP 46117 HDL TEST 36 MG/DL 12/14/2013 Unknown LIP[facility] GROUP 29864 TRIG 253 MG/DL 12/14/2013 Unknown [facility]IP[facility] GROUP 13545 TEST LDL 56 MG/DL 12/14/2013 Unknown LIP[facility] GROUP 60516 CHOL 143 MG/DL 12/14/2013 Unknown LIP[facility] GROUP 18099 RCHOL/HDL 3.97 RATIO 12/14/2013 Unknow n LIP[facility] GROUP 84777 NON-HDL CH 107 MG/DL 12/14/2013 Unknow n GLYCOSYLATED HEMOGLOBIN TEST 72238 A1C HPLC 48411-4 6.1 % 0 12/14/2013 Unknown GLYCOSYLATED HEMOGLOBIN TEST 89589 A1C HPLC 61850-4 6.0 % 0 06/08/2013 Unknown [facility] GROUP 43044 HDL TEST 39 MG/DL 06/08/2013 Unknown LIP[facility] GROUP 99477 TRIG 166 MG/DL 06/08/2013 Unknown LIP[facility] GROUP 71181 TEST LDL 86 MG/DL 06/08/2013 Unknown [facility] GROUP 20052 CHOL 158 MG/DL 06/08/2013 Unknown LIP[facility] GROUP 52559 RCHOL/HDL 4.05 RATIO 06/08/2013 Unknow n COMPREHENSIVE METABOLIC 73945 AST 17 U/L 2013 Unknown COMPREHENSIVE METABOLIC 85012 ALT 25 IU/L 2013 Unknown COMPREHENSIVE METABOLIC 43728 BUN 18 MG/DL 2013 Unknown COMPREHENSIVE METABOLIC 25240 ALBUMIN 4.5 GM/DL 2013 Unknown COMPREHENSIVE METABOLIC 81069 CHLORIDE 103 MMOL/L 06/08 Unknown COMPREHENSIVE METABOLIC 92726 BILI TOT 0.4 MG/DL 2013 Unknown COMPREHENSIVE METABOLIC 68950 ALK PHOS 72 U/L 2013 Unknown COMPREHENSIVE METABOLIC 15042 SODIUM 137 MMOL/L 06/08 Unknown COMPREHENSIVE METABOLIC 40657 CREATININE 1.07 MG/DL 08/2013 Unknown COMPREHENSIVE METABOLIC 12371 CALCIUM 9.7 MG/DL 2013 Unknown COMPREHENSIVE METABOLIC 95877 POTASSIUM 4.7 MMOL/L 06/08 Unknown COMPREHENSIVE METABOLIC 27162 PROT TOT 6.6 GM/DL 2013 Unknown COMPREHENSIVE METABOLIC 65807 Glucose 130 MG/DL 2013 Unknown COMPREHENSIVE METABOLIC 33851 BICARB 25 MMOL/L 2013 Unknown COMPREHENSIVE METABOLIC 35314 ANION GAP 9 MEQ/L 2013 Unknown FREE T4 45786 FREE T4 1.29 NG/DL 06/08/2013 Unknown THYROID STIMULATING HORMONE 47367 TSH 2.445 uIU/ML 06/08/2013 Unknown GFR CALC 9987020 GFR AA >60 ML/MIN 06/08/2013 Unknown GFR CALC 5464231 GFR NON-AA >60 ML/MIN 06/08/2013 Unknown COMPLETE BLOOD COUNT 0367269 WBC 8.2 10e9/L 06/09/19 14 Unknown COMPLETE BLOOD COUNT [id number] RBC 4.63 10e12/L 2013 Unknown COMPLETE BLOOD COUNT 2790032 HGB 14.1 g/dL 4 Unknown COMPLETE BLOOD COUNT 0912183 HCT DET 42.6 % 4 Unknown COMPLETE BLOOD COUNT 6809534 MCV 92.0 fL 4 Unknown COMPLETE BLOOD COUNT 3775811 MCH 30.5 pg 4 Unknown COMPLETE BLOOD COUNT 1981596 MCHC 33.1 g/dL 4 Unknown COMPLETE BLOOD COUNT 0308097 PLT 222 10e9/L 06/09/19 14 Unknown COMPLETE BLOOD COUNT 7525380 MPV 10.8 fL 4 Unknown COMPLETE BLOOD COUNT 2775140 SAMIR % 60.8 % 4 Unknown COMPLETE BLOOD COUNT 9112797 LY % 29.2 % 4 Unknown COMPLETE BLOOD COUNT 4322561 MON % 7.6 % 4 Unknown COMPLETE BLOOD COUNT 4790060 EOS % 2.3 % 4 Unknown COMPLETE BLOOD COUNT 3050479 BASO % 0.1 % 4 Unknown COMPLETE BLOOD COUNT 5146550 RDW 13.7 % 4 Unknown COMPLETE BLOOD COUNT 8259686 ABS SAMIR 4.99 10e9/L 014 Unknown COMPLETE BLOOD COUNT 7324883 ABS LYMPH 2.39 10e9/L 014 Unknown COMPLETE BLOOD COUNT 7620002 ABS MONO 0.62 10e9/L 014 Unknown COMPLETE BLOOD COUNT 9010296 ABS EOS 0.19 10e9/L 014 Unknown COMPLETE BLOOD COUNT 4422049 ABS BASO 0.01 10e9/L 014 Unknown COMPLETE BLOOD COUNT 6853535 RDW-SD 45.2 fL 4 Unknown LIPID GROUP 09977 HDL TEST 40 MG/DL 11/11/2012 Unknown [facility] GROUP 50393 TRIG 153 MG/DL 11/11/2012 Unknown [facility] GROUP 06858 TEST LDL 71 MG/DL 11/11/2012 Unknown LIP[facility] GROUP 60328 CHOL 142 MG/DL 11/11/2012 Unknown [facility] GROUP 76743 RCHOL/HDL 3.55 RATIO 11/11/2012 Unknow n GFR CALC 7760547 GFR AA >60 ML/MIN 11/11/2012 Unknown GFR CALC 6419830 GFR NON-AA 57.0L ML/MIN 11/11/2012 Unkno wn HEMOGLOBIN A1C (GLYCOSYLATED) 0658490 A1C HPLC 64909-7 5.9 % 11/11/2012 Unknown THYROID STIMULATING HORMONE 95346 TSH 2.439 uIU/ML 11/11/2012 Unknown COMPLETE BLOOD COUNT 8919495 WBC 8.5 10e9/L 11/12/19 13 Unknown COMPLETE BLOOD COUNT 0952917 RBC 4.42 10e12/L 2012 Unknown COMPLETE BLOOD COUNT 8263124 HGB 13.7 g/dL 3 Unknown COMPLETE BLOOD COUNT 4294191 HCT DET 41.3 % 3 Unknown COMPLETE BLOOD COUNT 0647116 MCV 93.4 fL 3 Unknown COMPLETE BLOOD COUNT 7444705 MCH 31.0 pg 3 Unknown COMPLETE BLOOD COUNT 6842753 MCHC 33.2 g/dL 3 Unknown COMPLETE BLOOD COUNT 0330522 PLT 220 10e9/L 11/12/19 13 Unknown COMPLETE BLOOD COUNT 3246431 MPV 10.8 fL 3 Unknown COMPLETE BLOOD COUNT 7547230 SAMIR % 60.4 % 3 Unknown COMPLETE BLOOD COUNT 0297339 LY % 28.7 % 3 Unknown COMPLETE BLOOD COUNT 0910029 MON % 8.0 % 3 Unknown COMPLETE BLOOD COUNT 2466877 EOS % 2.8 % 3 Unknown COMPLETE BLOOD COUNT 5058834 BASO % 0.1 % 3 Unknown COMPLETE BLOOD COUNT 0981280 RDW 13.7 % 3 Unknown COMPLETE BLOOD COUNT 9578857 ABS SAMIR 5.13 10e9/L 013 Unknown COMPLETE BLOOD COUNT 8497644 ABS LYMPH 2.44 10e9/L 013 Unknown COMPLETE BLOOD COUNT 8413284 ABS MONO 0.68 10e9/L 013 Unknown COMPLETE BLOOD COUNT 4685966 ABS EOS 0.24 10e9/L 013 Unknown COMPLETE BLOOD COUNT 5201093 ABS BASO 0.01 10e9/L 013 Unknown COMPLETE BLOOD COUNT 2695997 RDW-SD 45.6 fL 3 Unknown COMPREHENSIVE METABOLIC 96581 AST 19 U/L 2012 Unknown COMPREHENSIVE METABOLIC 89949 ALT 28 IU/L 2012 Unknown COMPREHENSIVE METABOLIC 00332 BUN 31 MG/DL 2012 Unknown COMPREHENSIVE METABOLIC 13918 ALBUMIN 4.7 GM/DL 2012 Unknown COMPREHENSIVE METABOLIC 62516 CHLORIDE 106 MMOL/L 11/11 Unknown COMPREHENSIVE METABOLIC 08281 BILI TOT 0.5 MG/DL 2012 Unknown COMPREHENSIVE METABOLIC 41041 ALK PHOS 64 U/L 2012 Unknown COMPREHENSIVE METABOLIC 74561 SODIUM 136 MMOL/L 11/11 Unknown COMPREHENSIVE METABOLIC 82428 CREATININE 1.27 MG/DL 11/2012 Unknown COMPREHENSIVE METABOLIC 53655 CALCIUM 9.4 MG/DL 2012 Unknown COMPREHENSIVE METABOLIC 76355 POTASSIUM 4.9 MMOL/L 11/11 Unknown COMPREHENSIVE METABOLIC 81791 PROT TOT 6.7 GM/DL 2012 Unknown COMPREHENSIVE METABOLIC 02344 Glucose 108 MG/DL 2012 Unknown COMPREHENSIVE METABOLIC 18341 BICARB 21 MMOL/L 2012 Unknown COMPREHENSIVE METABOLIC 25349 ANION GAP 9 MEQ/L 2012 Unknown THYROID STIMULATING HORMONE 57399 TSH 2.572 uIU/ML 05/04/2012 Unknown COMPLETE BLOOD COUNT 8516240 WBC 9.3 10e9/L 05/04/19 13 Unknown COMPLETE BLOOD COUNT 4455519 RBC 4.43 10e12/L 2012 Unknown COMPLETE BLOOD COUNT 8944572 HGB 14.2 g/dL 3 Unknown COMPLETE BLOOD COUNT 4953837 HCT DET 41.1 % 3 Unknown COMPLETE BLOOD COUNT 6428028 MCV 92.8 fL 3 Unknown COMPLETE BLOOD COUNT 3051866 MCH 32.1 pg 3 Unknown COMPLETE BLOOD COUNT 2611350 MCHC 34.5 g/dL 3 Unknown COMPLETE BLOOD COUNT 9398786 PLT 193 10e9/L 05/04/19 13 Unknown COMPLETE BLOOD COUNT 0147799 MPV 10.8 fL 3 Unknown COMPLETE BLOOD COUNT 1911378 SAMIR % 63.0 % 3 Unknown COMPLETE BLOOD COUNT 9624205 LY % 25.3 % 3 Unknown COMPLETE BLOOD COUNT 5936963 MON % 9.1 % 3 Unknown COMPLETE BLOOD COUNT 5108449 EOS % 2.5 % 3 Unknown COMPLETE BLOOD COUNT 0440461 BASO % 0.1 % 3 Unknown COMPLETE BLOOD COUNT 2614430 RDW 12.6 % 3 Unknown COMPLETE BLOOD COUNT 0189049 ABS SAMIR 5.86 10e9/L 013 Unknown COMPLETE BLOOD COUNT 6723584 ABS LYMPH 2.35 10e9/L 013 Unknown COMPLETE BLOOD COUNT 5387980 ABS MONO 0.85 10e9/L 013 Unknown COMPLETE BLOOD COUNT 3359387 ABS EOS 0.23 10e9/L 013 Unknown COMPLETE BLOOD COUNT 9545961 ABS BASO 0.01 10e9/L 013 Unknown COMPLETE BLOOD COUNT 1798919 RDW-SD 41.2 fL 3 Unknown LIP[facility] GROUP 30304 HDL TEST 35 MG/DL 05/04/2012 Unknown LIPID GROUP 04976 TRIG 236 MG/DL 05/04/2012 Unknown LIPID GROUP 63386 TEST LDL 64 MG/DL 05/04/2012 Unknown LIP[facility] GROUP 60801 CHOL 146 MG/DL 05/04/2012 Unknown LIP[facility] GROUP 52595 RCHOL/HDL 4.17 RATIO 05/04/2012 Unknow n COMPREHENSIVE METABOLIC 67725 AST 23 U/L 2012 Unknown COMPREHENSIVE METABOLIC 43461 ALT 33 IU/L 2012 Unknown COMPREHENSIVE METABOLIC 16422 BUN 16 MG/DL 2012 Unknown COMPREHENSIVE METABOLIC 28647 ALBUMIN 4.8 GM/DL 2012 Unknown COMPREHENSIVE METABOLIC 73382 CHLORIDE 104 MMOL/L 05/04 Unknown COMPREHENSIVE METABOLIC 64637 BILI TOT 0.5 MG/DL 2012 Unknown COMPREHENSIVE METABOLIC 51788 ALK PHOS 70 U/L 2012 Unknown COMPREHENSIVE METABOLIC 27624 SODIUM 138 MMOL/L 05/04 Unknown COMPREHENSIVE METABOLIC 20351 CREATININE 1.08 MG/DL 04/07 Unknown COMPREHENSIVE METABOLIC 23891 CALCIUM 9.7 MG/DL 2012 Unknown COMPREHENSIVE METABOLIC 77386 POTASSIUM 4.4 MMOL/L 05/04 Unknown COMPREHENSIVE METABOLIC 89605 PROT TOT 6.8 GM/DL 2012 Unknown COMPREHENSIVE METABOLIC 73126 Glucose 114 MG/DL 2012 Unknown COMPREHENSIVE METABOLIC 98555 BICARB 27 MMOL/L 2012 Unknown COMPREHENSIVE METABOLIC 65234 ANION GAP 7 MEQ/L 2012 Unknown FREE T4 17123 FREE T4 1.11 NG/DL 05/04/2012 Unknown GFR CALC 8726261 GFR AA >60 ML/MIN 05/04/2012 Unknown GFR CALC 8004783 GFR NON-AA >60 ML/MIN 05/04/2012 Unknown GLYCOSYLATED HEMOGLOBIN TEST 82094 A1C HPLC 28627-1 5.8 % 0 10/29/2011 Unknown COMPREHENSIVE METABOLIC 77017 AST 17 U/L 2011 Unknown COMPREHENSIVE METABOLIC 83031 ALT 21 IU/L 2011 Unknown COMPREHENSIVE METABOLIC 71729 BUN 17 MG/DL 2011 Unknown COMPREHENSIVE METABOLIC 51350 ALBUMIN 4.8 GM/DL 2011 Unknown COMPREHENSIVE METABOLIC 85402 CHLORIDE 106 MMOL/L 10/28 Unknown COMPREHENSIVE METABOLIC 28067 BILI TOT 0.6 MG/DL 2011 Unknown COMPREHENSIVE METABOLIC 95245 ALK PHOS 57 U/L 2011 Unknown COMPREHENSIVE METABOLIC 75521 SODIUM 139 MMOL/L 10/28 Unknown COMPREHENSIVE METABOLIC 40216 CREATININE 1.08 MG/DL 10/05 Unknown COMPREHENSIVE METABOLIC 88015 CALCIUM 9.6 MG/DL 2011 Unknown COMPREHENSIVE METABOLIC 23055 POTASSIUM 4.4 MMOL/L 10/28 Unknown COMPREHENSIVE METABOLIC 58197 PROT TOT 6.9 GM/DL 2011 Unknown COMPREHENSIVE METABOLIC 47429 Glucose 104 MG/DL 2011 Unknown COMPREHENSIVE METABOLIC 79129 BICARB 25 MMOL/L 2011 Unknown COMPREHENSIVE METABOLIC 72124 ANION GAP 8 MEQ/L 2011 Unknown LIPID GROUP 11636 HDL TEST 39 MG/DL 10/29/2011 Unknown LIPID GROUP 04381 TRIG 176 MG/DL 10/29/2011 Unknown LIPID GROUP 41902 TEST LDL 70 MG/DL 10/29/2011 Unknown LIPID GROUP 78651 CHOL 144 MG/DL 10/29/2011 Unknown LIPID GROUP 21311 RCHOL/HDL 3.69 RATIO 10/29/2011 Unknow n GFR CALC 8024831 GFR AA >60 ML/MIN 10/29/2011 Unknown GFR CALC 2084252 GFR NON-AA >60 ML/MIN 10/29/2011 Unknown GFR CALC 1821104 GFR AA >60 ML/MIN 03/14/2011 Unknown GFR CALC 5171957 GFR NON-AA >60 ML/MIN 03/14/2011 Unknown GLYCOSYLATED HEMOGLOBIN TEST 31144 A1C HPLC 79293-2 5.7 % 1 05/15/2010 Unknown COMPREHENSIVE METABOLIC 53655 AST 18 U/L 2010 Unknown COMPREHENSIVE METABOLIC 30753 ALT 25 IU/L 2010 Unknown COMPREHENSIVE METABOLIC 97235 BUN 15 MG/DL 2010 Unknown COMPREHENSIVE METABOLIC 44756 ALBUMIN 4.6 GM/DL 2010 Unknown COMPREHENSIVE METABOLIC 53067 CHLORIDE 107 MMOL/L 03/14 Unknown COMPREHENSIVE METABOLIC 34248 BILI TOT 0.6 MG/DL 2010 Unknown COMPREHENSIVE METABOLIC 14670 ALK PHOS 54 U/L 2010 Unknown COMPREHENSIVE METABOLIC 18146 SODIUM 140 MMOL/L 03/14 Unknown COMPREHENSIVE METABOLIC 79993 CREATININE 1.02 MG/DL 12/2010 Unknown COMPREHENSIVE METABOLIC 60990 CALCIUM 9.4 MG/DL 2010 Unknown COMPREHENSIVE METABOLIC 22415 POTASSIUM 4.6 MMOL/L 03/14 Unknown COMPREHENSIVE METABOLIC 70078 PROT TOT 7.0 GM/DL 2010 Unknown COMPREHENSIVE METABOLIC 16498 Glucose 107 MG/DL 2010 Unknown COMPREHENSIVE METABOLIC 09002 BICARB 28 MMOL/L 2010 Unknown COMPREHENSIVE METABOLIC 85388 ANION GAP 5 MEQ/L 2010 Unknown LIPID GROUP 69658 HDL TEST 39 MG/DL 03/14/2011 Unknown LIPID GROUP 12231 TRIG 157 MG/DL 03/14/2011 Unknown LIPID GROUP 33082 TEST LDL 66 MG/DL 03/14/2011 Unknown LIPID GROUP 53955 CHOL 136 MG/DL 03/14/2011 Unknown LIPID GROUP 07674 RCHOL/HDL 3.49 RATIO 03/14/2011 Unknow n GFR CALC 3583651 GFR AA >60 ML/MIN 11/11/2010 Unknown GFR CALC 0931909 GFR NON-AA >60 ML/MIN 11/11/2010 Unknown LIPID GROUP 15400 HDL TEST 39 MG/DL 11/11/2010 Unknown LIPID GROUP 61459 TRIG 212 MG/DL 11/11/2010 Unknown LIPID GROUP 93801 TEST LDL 67 MG/DL 11/11/2010 Unknown LIPID GROUP 77231 CHOL 148 MG/DL 11/11/2010 Unknown LIPID GROUP 67218 RCHOL/HDL 3.79 RATIO 11/11/2010 Unknow n COMPREHENSIVE METABOLIC 11099 AST 17 U/L 2010 Unknown COMPREHENSIVE METABOLIC 41906 ALT 21 IU/L 2010 Unknown COMPREHENSIVE METABOLIC 59155 BUN 16 MG/DL 2010 Unknown COMPREHENSIVE METABOLIC 15322 ALBUMIN 4.6 GM/DL 2010 Unknown COMPREHENSIVE METABOLIC 25161 CHLORIDE 106 MMOL/L 11/11 Unknown COMPREHENSIVE METABOLIC 34352 BILI TOT 0.5 MG/DL 2010 Unknown COMPREHENSIVE METABOLIC 42317 ALK PHOS 61 U/L 2010 Unknown COMPREHENSIVE METABOLIC 06826 SODIUM 139 MMOL/L 11/11 Unknown COMPREHENSIVE METABOLIC 85509 CREATININE 1.00 MG/DL 11/2010 Unknown COMPREHENSIVE METABOLIC 30059 CALCIUM 9.5 MG/DL 2010 Unknown COMPREHENSIVE METABOLIC 97576 POTASSIUM 4.5 MMOL/L 11/11 Unknown COMPREHENSIVE METABOLIC 19661 PROT TOT 6.9 GM/DL 2010 Unknown COMPREHENSIVE METABOLIC 70011 Glucose 111 MG/DL 2010 Unknown COMPREHENSIVE METABOLIC 75326 BICARB 26 MMOL/L 2010 Unknown COMPREHENSIVE METABOLIC 06908 ANION GAP 7 MEQ/L 2010 Unknown HEMOGLOBIN A1C (GLYCOSYLATED) 59010 A1C [facility] 67411-0 5.6 % 07/24/2010 Unknown GFR CALC 6054291 GFR AA >60 ML/MIN 07/23/2010 Unknown GFR CALC 2034034 GFR NON-AA >60 ML/MIN 07/23/2010 Unknown COMPREHENSIVE METABOLIC 68238 AST 19 U/L 2010 Unknown COMPREHENSIVE METABOLIC 76003 ALT 33 IU/L 2010 Unknown COMPREHENSIVE METABOLIC 23997 BUN 14 MG/DL 2010 Unknown COMPREHENSIVE METABOLIC 47114 ALBUMIN 4.7 GM/DL 2010 Unknown COMPREHENSIVE METABOLIC 26816 CHLORIDE 107 MMOL/L 07/23 Unknown COMPREHENSIVE METABOLIC 61438 BILI TOT 0.4 MG/DL 2010 Unknown COMPREHENSIVE METABOLIC 66433 ALK PHOS 80 U/L 2010 Unknown COMPREHENSIVE METABOLIC 11143 SODIUM 141 MMOL/L 07/23 Unknown COMPREHENSIVE METABOLIC 68370 CREATININE 0.97 MG/DL 07/05 Unknown COMPREHENSIVE METABOLIC 93844 CALCIUM 9.5 MG/DL 2010 Unknown COMPREHENSIVE METABOLIC 95382 POTASSIUM 4.1 MMOL/L 07/23 Unknown COMPREHENSIVE METABOLIC 82462 PROT TOT 6.8 GM/DL 2010 Unknown COMPREHENSIVE METABOLIC 01299 Glucose 120 MG/DL 2010 Unknown COMPREHENSIVE METABOLIC 53984 BICARB 26 MMOL/L 2010 Unknown COMPREHENSIVE METABOLIC 56335 ANION GAP 8 MEQ/L 2010 Unknown LIPID GROUP 15231 HDL TEST 41 MG/DL 07/23/2010 Unknown LIPID GROUP 08644 TRIG 175 MG/DL 07/23/2010 Unknown LIPID GROUP 23230 TEST LDL 72 MG/DL 07/23/2010 Unknown LIPID GROUP 19249 CHOL 148 MG/DL 07/23/2010 Unknown LIPID GROUP 18992 RCHOL/HDL 3.61 RATIO 07/23/2010 Unknow n PSA FREE AND TOTAL 52428|27816 % FREE PSA FOOTNOTE % 011 Unknown PSA FREE AND TOTAL 92206|79547 XPSA TOTAL 0.83 NG/ML 011 Unknown PSA FREE AND TOTAL 16954|08883 XPSA FREE 0.13 NG/ML 04/26/19 11 Unknown VITAMIN D TOTAL (25 HYDROXY) 85165 VIT D TOTL 26 NG/ML 04/22/2010 Unknown TESTOSTERONE TOTAL 13736 TESTOS TO 387 NG/DL 04/19/2010 Unknown GFR CALC 2872475 GFR AA >60 ML/MIN 04/19/2010 Unknown GFR CALC 5559148 GFR NON-AA >60 ML/MIN 04/19/2010 Unknown COMPLETE BLOOD COUNT 34647 WBC 7.0 10e9/L 04/19/19 11 Unknown COMPLETE BLOOD COUNT 66509 RBC 5.07 10e12/L 2010 Unknown COMPLETE BLOOD COUNT 95919 HGB 15.6 g/dL 1 Unknown COMPLETE BLOOD COUNT 64164 HCT DET 46.2 % 1 Unknown COMPLETE BLOOD COUNT 01707 MCV 91.1 fL 1 Unknown COMPLETE BLOOD COUNT 30189 MCH 30.8 pg 1 Unknown COMPLETE BLOOD COUNT 53885 MCHC 33.8 g/dL 1 Unknown COMPLETE BLOOD COUNT 63799 PLT 205 10e9/L 04/19/19 11 Unknown COMPLETE BLOOD COUNT 30448 MPV 11.1 fL 1 Unknown COMPLETE BLOOD COUNT 33796 SAMIR % 62.4 % 1 Unknown COMPLETE BLOOD COUNT 77525 LY % 28.5 % 1 Unknown COMPLETE BLOOD COUNT 23700 MON % 6.9 % 1 Unknown COMPLETE BLOOD COUNT 97798 EOS % 2.1 % 1 Unknown COMPLETE BLOOD COUNT 98723 BASO % 0.1 % 1 Unknown COMPLETE BLOOD COUNT 99331 RDW 13.4 % 1 Unknown COMPLETE BLOOD COUNT 05502 ABS SAMIR 4.37 10e9/L 011 Unknown COMPLETE BLOOD COUNT 06767 ABS LYMPH 2.00 10e9/L 011 Unknown COMPLETE BLOOD COUNT 33731 ABS MONO 0.48 10e9/L 011 Unknown COMPLETE BLOOD COUNT 29044 ABS EOS 0.15 10e9/L 011 Unknown COMPLETE BLOOD COUNT 94009 ABS BASO 0.01 10e9/L 011 Unknown COMPLETE BLOOD COUNT 34846 RDW-SD 43.8 fL 1 Unknown LIPID GROUP 01371 HDL TEST 39 MG/DL 04/19/2010 Unknown LIPID GROUP 63357 TRIG 244 MG/DL 04/19/2010 Unknown LIPID GROUP 48395 TEST LDL 168 MG/DL 04/19/2010 Unknown LIPID GROUP 45413 CHOL 256 MG/DL 04/19/2010 Unknown LIPID GROUP 62213 RCHOL/HDL 6.56 RATIO 04/19/2010 Unknow n COMPREHENSIVE METABOLIC 96256 AST 28 U/L 2010 Unknown COMPREHENSIVE METABOLIC 86791 ALT 46 IU/L 2010 Unknown COMPREHENSIVE METABOLIC 12710 BUN 14 MG/DL 2010 Unknown COMPREHENSIVE METABOLIC 78075 ALBUMIN 4.9 GM/DL 2010 Unknown COMPREHENSIVE METABOLIC 39064 CHLORIDE 104 MMOL/L 04/19 Unknown COMPREHENSIVE METABOLIC 44175 BILI TOT 0.8 MG/DL 2010 Unknown COMPREHENSIVE METABOLIC 06836 ALK PHOS 71 U/L 2010 Unknown COMPREHENSIVE METABOLIC 24157 SODIUM 139 MMOL/L 04/19 Unknown COMPREHENSIVE METABOLIC 72566 CREATININE 1.06 MG/DL 04/06 Unknown COMPREHENSIVE METABOLIC 59003 CALCIUM 9.9 MG/DL 2010 Unknown COMPREHENSIVE METABOLIC 48610 POTASSIUM 4.3 MMOL/L 04/19 Unknown COMPREHENSIVE METABOLIC 37913 PROT TOT 7.2 GM/DL 2010 Unknown COMPREHENSIVE METABOLIC 53699 Glucose 99 MG/DL 2010 Unknown COMPREHENSIVE METABOLIC 39164 BICARB 28 MMOL/L 2010 Unknown COMPREHENSIVE METABOLIC 27016 ANION GAP 7 MEQ/L 2010 Unknown FREE T4 02160 FREE T4 1.26 NG/DL 04/19/2010 Unknown Procedures Procedure Codes Date ROUTINE VENIPUNCTURE CPT-4: 74438 08/24/2019 COMPREHEN METABOLIC PANEL CPT-4: 56953 08/24/2019 A1C HPLC CPT-4: 13728 08/24/2019 ROUTINE VENIPUNCTURE CPT-4: 05379 05/24/2019 COMPREHEN METABOLIC PANEL CPT-4: 54220 05/24/2019 A1C HPLC CPT-4: 38400 05/24/2019 FLU VACC PRSV FREE INC ANTIG 65 AND OLDER CPT-4: 61215 01/26/2019 FLU VACC PRSV FREE INC ANTIG 65 AND OLDER CPT-4: 11436 01/26/2019 ADMIN INFLUENZA VIRUS VAC CPT-4: G0008 01/26/2019 ROUTINE VENIPUNCTURE CPT-4: 01332 01/26/2019 COMPREHEN METABOLIC PANEL CPT-4: 07445 01/26/2019 COMPLETE CBC W/AUTO DIFF WBC CPT-4: 60846 01/26/2019 LIPID PANEL CPT-4: 09044 01/26/2019 A1C HPLC CPT-4: 94077 01/26/2019 ROUTINE VENIPUNCTURE CPT-4: 11737 09/30/2018 METABOLIC PANEL TOTAL CA CPT-4: 57769 09/30/2018 URINALYSIS NONAUTO W/O SCOPE CPT-4: 23089 08/19/2018 URINE CULTURE/ COLONY COUNT CPT-4: 13908 08/19/2018 MICROALBUMIN QUANTITATIVE CPT-4: 80346 08/19/2018 ROUTINE VENIPUNCTURE CPT-4: 75564 08/16/2018 ASSAY THYROID STIM HORMONE CPT-4: 20563 08/16/2018 COMPREHEN METABOLIC PANEL CPT-4: 63840 08/16/2018 COMPLETE CBC W/AUTO DIFF WBC CPT-4: 28377 08/16/2018 LIPID PANEL CPT-4: 56729 08/16/2018 A1C HPLC CPT-4: 77610 08/16/2018 LIPID PANEL CPT-4: 95788 05/05/2018 COMPREHEN METABOLIC PANEL CPT-4: 84949 05/05/2018 ROUTINE VENIPUNCTURE CPT-4: 59741 05/05/2018 A1C HPLC CPT-4: 20103 05/05/2018 COMPLETE CBC W/AUTO DIFF WBC CPT-4: 66173 05/05/2018 ASSAY THYROID STIM HORMONE CPT-4: 06453 05/05/2018 MICROALBUMIN QUANTITATIVE CPT-4: 63023 01/19/2018 PRESCRIP TRANSMIT VIA ERX SY CPT-4: G8553 01/19/2018 ROUTINE VENIPUNCTURE CPT-4: 66766 01/13/2018 COMPREHEN METABOLIC PANEL CPT-4: 62982 01/13/2018 A1C HPLC CPT-4: 07838 01/13/2018 LIPID PANEL CPT-4: 78042 01/13/2018 ASSAY OF PSA TOTAL CPT-4: 69878 01/13/2018 ASSAY THYROID STIM HORMONE CPT-4: 71558 01/13/2018 ROUTINE VENIPUNCTURE CPT-4: 94114 10/06/2017 COMPREHEN METABOLIC PANEL CPT-4: 16850 10/06/2017 COMPLETE CBC W/AUTO DIFF WBC CPT-4: 39510 10/06/2017 LIPID PANEL CPT-4: 14170 10/06/2017 A1C HPLC CPT-4: 47634 10/06/2017 VITAMIN B-12 CPT-4: 33832 10/06/2017 DESTRUCT PREMALG LESION (Cryosurgery) CPT-4: 15352 DESTRUCT PREMALG LES 2-14 CPT-4: 39210 04/23/2017 PRESCRIP TRANSMIT VIA ERX SY CPT-4: G8553 03/11/2017 ROUTINE VENIPUNCTURE CPT-4: 56216 03/05/2017 ASSAY OF FREE THYROXINE CPT-4: 47035 03/05/2017 ASSAY THYROID STIM HORMONE CPT-4: 28884 03/05/2017 COMPREHEN METABOLIC PANEL CPT-4: 89251 03/05/2017 COMPLETE CBC W/AUTO DIFF WBC CPT-4: 90237 03/05/2017 LIPID PANEL CPT-4: 02147 03/05/2017 A1C HPLC CPT-4: 15831 03/05/2017 ROUTINE VENIPUNCTURE CPT-4: 58791 06/16/2016 ASSAY OF FREE THYROXINE CPT-4: 14688 06/16/2016 ASSAY THYROID STIM HORMONE CPT-4: 80485 06/16/2016 COMPREHEN METABOLIC PANEL CPT-4: 25283 06/16/2016 COMPLETE CBC W/AUTO DIFF WBC CPT-4: 69197 06/16/2016 LIPID PANEL CPT-4: 69707 06/16/2016 A1C HPLC CPT-4: 65354 06/16/2016 ROUTINE VENIPUNCTURE CPT-4: 03642 03/06/2016 ASSAY OF FREE THYROXINE CPT-4: 42834 03/06/2016 ASSAY THYROID STIM HORMONE CPT-4: 39881 03/06/2016 COMPREHEN METABOLIC PANEL CPT-4: 49673 03/06/2016 COMPLETE CBC W/AUTO DIFF WBC CPT-4: 03294 03/06/2016 LIPID PANEL CPT-4: 66818 03/06/2016 A1C HPLC CPT-4: 80058 03/06/2016 PRESCRIP TRANSMIT VIA ERX SY CPT-4: G8553 09/10/2015 PNEUMOCOCCAL VACC 23 ROSANNE IM CPT-4: 67595 09/06/2015 ADMIN PNEUMOCOCCAL VACCINE CPT-4: G0009 09/06/2015 ROUTINE VENIPUNCTURE CPT-4: 04068 08/31/2015 COMPREHEN METABOLIC PANEL CPT-4: 53305 08/31/2015 COMPLETE CBC W/AUTO DIFF WBC CPT-4: 69172 08/31/2015 LIPID PANEL CPT-4: 12566 08/31/2015 ASSAY OF PSA TOTAL CPT-4: 19693 08/31/2015 A1C HPLC CPT-4: 60691 08/31/2015 ASSAY OF FREE THYROXINE CPT-4: 18985 08/31/2015 ASSAY THYROID STIM HORMONE CPT-4: 07649 08/31/2015 PRESCRIP TRANSMIT VIA ERX SY CPT-4: G8553 06/29/2015 FLU VACC PRSV FREE INC ANTIG 65 AND OLDER CPT-4: 08821 01/17/2015 PNEUMOCOCCAL VACC 13 ROSANNE IM CPT-4: 57588 01/17/2015 ADMIN INFLUENZA VIRUS VAC CPT-4: G0008 01/17/2015 ADMIN PNEUMOCOCCAL VACCINE CPT-4: G0009 01/17/2015 DESTRUCT PREMALG LESION (Cryosurgery) CPT-4: 04847 PRESCRIP TRANSMIT VIA ERX SY CPT-4: G8553 01/17/2015 ROUTINE VENIPUNCTURE CPT-4: 07453 01/12/2015 COMPREHEN METABOLIC PANEL CPT-4: 63013 01/12/2015 COMPLETE CBC W/AUTO DIFF WBC CPT-4: 44294 01/12/2015 LIPID PANEL CPT-4: 27409 01/12/2015 A1C HPLC CPT-4: 27099 01/12/2015 DESTRUCT PREMALG LESION (Cryosurgery) CPT-4: 89979 ROUTINE VENIPUNCTURE CPT-4: 11698 08/15/2014 COMPREHEN METABOLIC PANEL CPT-4: 00339 08/15/2014 COMPLETE CBC W/AUTO DIFF WBC CPT-4: 43186 08/15/2014 LIPID PANEL CPT-4: 74942 08/15/2014 A1C HPLC CPT-4: 14324 08/15/2014 ASSAY OF PSA TOTAL CPT-4: 54380 08/15/2014 ASSAY OF FREE THYROXINE CPT-4: 67890 08/15/2014 ASSAY THYROID STIM HORMONE CPT-4: 40383 08/15/2014 ROUTINE VENIPUNCTURE CPT-4: 71809 12/14/2013 ASSAY OF FREE THYROXINE CPT-4: 83074 12/14/2013 ASSAY THYROID STIM HORMONE CPT-4: 60553 12/14/2013 COMPREHEN METABOLIC PANEL CPT-4: 49458 12/14/2013 COMPLETE CBC W/AUTO DIFF WBC CPT-4: 54512 12/14/2013 LIPID PANEL CPT-4: 67584 12/14/2013 A1C HPLC CPT-4: 54982 12/14/2013 ROUTINE VENIPUNCTURE CPT-4: 05435 06/08/2013 ASSAY OF FREE THYROXINE CPT-4: 57540 06/08/2013 ASSAY THYROID STIM HORMONE CPT-4: 80602 06/08/2013 COMPREHEN METABOLIC PANEL CPT-4: 42584 06/08/2013 COMPLETE CBC W/AUTO DIFF WBC CPT-4: 03972 06/08/2013 LIPID PANEL CPT-4: 69277 06/08/2013 A1C HPLC CPT-4: 85205 06/08/2013 ROUTINE VENIPUNCTURE CPT-4: 64095 11/11/2012 COMPREHEN METABOLIC PANEL CPT-4: 11308 11/11/2012 COMPLETE CBC W/AUTO DIFF WBC CPT-4: 55530 11/11/2012 LIPID PANEL CPT-4: 26278 11/11/2012 A1C GLYCOSYLATED HEMOGLOBIN TEST CPT-4: 72247 013 ASSAY THYROID STIM HORMONE CPT-4: 95939 11/11/2012 ROUTINE VENIPUNCTURE CPT-4: 26825 05/04/2012 ASSAY OF FREE THYROXINE CPT-4: 75384 05/04/2012 ASSAY THYROID STIM HORMONE CPT-4: 03408 05/04/2012 COMPREHEN METABOLIC PANEL CPT-4: 44224 05/04/2012 COMPLETE CBC W/AUTO DIFF WBC CPT-4: 15411 05/04/2012 LIPID PANEL CPT-4: 16193 05/04/2012 DESTRUCT PREMALG LESION (Cryosurgery) CPT-4: 10367 DESTRUCT PREMALG LES 2-14 CPT-4: 10724 03/02/2012 ROUTINE VENIPUNCTURE CPT-4: 36314 10/29/2011 COMPREHEN METABOLIC PANEL CPT-4: 44061 10/29/2011 LIPID PANEL CPT-4: 00533 10/29/2011 A1C GLYCOSYLATED HEMOGLOBIN TEST CPT-4: 88378 012 ROUTINE VENIPUNCTURE CPT-4: 78611 07/29/2011 COMPREHEN METABOLIC PANEL CPT-4: 30431 07/29/2011 LIPID PANEL CPT-4: 39919 07/29/2011 A1C GLYCOSYLATED HEMOGLOBIN TEST CPT-4: 57348 012 ROUTINE VENIPUNCTURE CPT-4: 31996 03/14/2011 COMPREHEN METABOLIC PANEL CPT-4: 56612 03/14/2011 LIPID PANEL CPT-4: 49178 03/14/2011 A1C GLYCOSYLATED HEMOGLOBIN TEST CPT-4: 57898 011 ROUTINE VENIPUNCTURE CPT-4: 40570 11/11/2010 COMPREHEN METABOLIC PANEL CPT-4: 00144 11/11/2010 LIPID PANEL CPT-4: 19950 11/11/2010 URINE CULTURE/ COLONY COUNT CPT-4: 73542 11/11/2010 URINALYSIS NONAUTO W/O SCOPE CPT-4: 66656 10/29/2010 URINE CULTURE/ COLONY COUNT CPT-4: 38272 10/29/2010 LIPID PANEL CPT-4: 34292 07/23/2010 COMPREHEN METABOLIC PANEL CPT-4: 48915 07/23/2010 ROUTINE VENIPUNCTURE CPT-4: 62536 07/23/2010 ROUTINE VENIPUNCTURE CPT-4: 68317 04/26/2010 PSA FREE AND TOTAL CPT-4: 00646|03272 04/26/2010 OCCULT BLOOD FECES CPT-4: 16558 04/24/2010 ROUTINE VENIPUNCTURE CPT-4: 57587 04/19/2010 COMPLETE CBC W/AUTO DIFF WBC CPT-4: 12108 04/19/2010 COMPREHEN METABOLIC PANEL CPT-4: 60692 04/19/2010 LIPID PANEL CPT-4: 67484 04/19/2010 TESTOSTERONE TOTAL - MALE CPT-4: 35306 04/19/2010 ASSAY THYROID STIM HORMONE CPT-4: 17783 04/19/2010 ASSAY OF FREE THYROXINE CPT-4: 79296 04/19/2010 VITAMIN D TOTAL (25 HYDROXY) CPT-4: 33620 04/19/2010 Vital Signs Date Vital 08/30/2019 Blood Pressure 1: 144/76 Code: 8480-6 Heart Rate 1: 84 bpm Respiratory Rate: 20 bpm SpO2: 98% Temperature: 36.9 (C) / 98.4 (F) We ight: 240 lbs 06/02/2019 Blood Pressure 1: 132/80 Code: 8480-6 BMI: 29.5 Code: 07669-8 Heart Rate 1: 64 bpm Height: 6'3" [...] 1: 112/70 Code: 8480-6 BMI: 28.9 Code: 98148-5 Heart Rate 1: 60 bpm Height: 6'3" Respiratory Rate: 20 bpm SpO2: 95% Tempera ture: 36.6 (C) / 97.9 (F) Weight: 231 lbs 01/19/2018 Blood Pressure 1: 150/82 Code: 8480-6 Heart Rate 1: 63 bpm Respiratory Rate: 18 bpm SpO2: 98% Temperature: 36.0 (C) / 96.8 (F) We ight: 225 lbs 10/15/2017 Blood Pressure 1: 126/82 Code: 8480-6 BMI: 27.9 Code: 06641-4 Heart Rate 1: 64 bpm Height: 6'3" Respiratory Rate: 20 bpm SpO2: 96% Tempera ture: 36.7 (C) / 98.1 (F) Weight: 223 lbs 04/23/2017 Blood Pressure 1: 136/74 Code: 8480-6 BMI: 28.7 Code: 95067-5 Heart Rate 1: 76 bpm Height: 6'3" Respiratory Rate: 20 bpm Temperature: 37 .0 (C) / 98.6 (F) Weight: 230 lbs 03/11/2017 Blood Pressure 1: 136/66 Code: 8480-6 BMI: 28.6 Code: 52203-4 Heart Rate 1: 60 bpm Height: 6'3" Respiratory Rate: 20 bpm Temperature: 36 .7 (C) / 98.1 (F) Weight: 229 lbs 07/09/2016 Blood Pressure 1: 132/80 Code: 8480-6 BMI: 27.7 Code: 11403-7 Heart Rate 1: 64 bpm Height: 6'3" Respiratory Rate: 20 bpm SpO2: 96% Tempera ture: 36.9 (C) / 98.4 (F) Weight: 222 lbs 03/10/2016 Blood Pressure 1: 134/78 Code: 8480-6 BMI: 28.5 Code: 21664-0 Heart Rate 1: 60 bpm Height: 6'3" Respiratory Rate: 20 bpm SpO2: 96% Tempera ture: 36.7 (C) / 98.1 (F) Weight: 228 lbs 09/12/2015 Blood Pressure 1: 136/78 Code: 8480-6 Heart Rate 1: 84 bpm Height: Respiratory Rate: 24 bpm SpO2: 97% Temperature: 36.4 (C) / 97.6 (F) We ight: 09/10/2015 Blood Pressure 1: 124/ Code: 8480-6 BMI: 28.5 Code: 32623-3 Heart Rate 1: 76 bpm Height: 6'3" Respiratory Rate: 24 bpm SpO2: 97% Tempera ture: 36.4 (C) / 97.6 (F) Weight: 228 lbs 09/06/2015 Blood Pressure 1: 124/82 Code: 8480-6 BMI: 29.0 Code: 94266-1 Heart Rate 1: 66 bpm Height: 6'3" Respiratory Rate: 20 bpm SpO2: 97% Tempera ture: 36.4 (C) / 97.6 (F) Weight: 232 lbs 06/29/2015 Blood Pressure 1: 124/82 Code: 8480-6 Heart Rate 1: 88 bpm Height: Respiratory Rate: 20 bpm Temperature: 36.7 (C) / 98.1 (F) Weight: 01/17/2015 Blood Pressure 1: 124 Code: 8480-6 BMI: 27.7 Code: 62801-2 Heart Rate 1: 76 bpm Height: 6'3" Respiratory Rate: 20 bpm Temperature: 36 .6 (C) / 97.8 (F) Weight: 222 lbs 09/19/2014 Blood Pressure 1: 128/80 Code: 8480-6 BMI: 27.4 Code: 03185-6 Heart Rate 1: 64 bpm Height: 6'3" Respiratory Rate: 20 bpm Temperature: 36 .4 (C) / 97.6 (F) Weight: 219 lbs 10/17/2013 Blood Pressure 1: 11670 Code: 8480-6 Heart Rate 1: 88 bpm Respiratory Rate: 20 bpm Temperature: 36.9 (C) / 98.4 (F) Weight: 220 lbs 09/23/2013 Blood Pressure 1: 12480 Code: 8480-6 BMI: 28.7 Code: 64828-9 Heart Rate 1: 76 bpm Height: 6'3" Respiratory Rate: 20 bpm Temperature: 36 .8 (C) / 98.2 (F) Weight: 230 lbs 07/22/2013 Blood Pressure 1: 128/70 Code: 8480-6 He art Rate 1: 78 bpm 06/20/2013 Blood Pressure 1: 144/86 Code: 8480-6 BMI: 28.7 Code: 12108-5 Heart Rate 1: 92 bpm Height: 6'3" Respiratory Rate: 20 bpm Temperature: 36 .4 (C) / 97.6 (F) Weight: 230 lbs 11/25/2012 Blood Pressure 1: 128/80 Code: 8480-6 BMI: 27.5 Code: 77056-9 Heart Rate 1: 92 bpm Height: 6'3" Respiratory Rate: 20 bpm Temperature: 36 .8 (C) / 98.3 (F) Weight: 220 lbs 08/27/2012 Blood Pressure 1: 142/80 Code: 8480-6 BMI: 27.7 Code: 31539-2 Heart Rate 1: 76 bpm Height: 6'3" Respiratory Rate: 20 bpm Temperature: 36 .8 (C) / 98.3 (F) Weight: 222 lbs 05/11/2012 Blood Pressure 1: 136/80 Code: 8480-6 BMI: 27.7 Code: 65421-1 Heart Rate 1: 76 bpm Height: 6'3" Respiratory Rate: 20 bpm Temperature: 36 .8 (C) / 98.3 (F) Weight: 222 lbs 03/02/2012 Blood Pressure 1: 136/70 Code: 8480-6 BMI: 28.0 Code: 95175-7 Heart Rate 1: 80 bpm Height: 6'3" Respiratory Rate: 20 bpm Temperature: 36 .6 (C) / 97.8 (F) Weight: 224 lbs 12/11/2011 Blood Pressure 1: 142/80 Code: 8480-6 BMI: 27.1 Code: 94503-1 Heart Rate 1: 84 bpm Height: 6'3" Respiratory Rate: 20 bpm Temperature: 36 .9 (C) / 98.4 (F) Weight: 217 lbs 08/14/2011 Blood Pressure 1: 130/82 Code: 8480-6 He art Rate 1: 64 bpm 07/29/2011 Blood Pressure 1: 132/64 Code: 8480-6 BMI: 26.7 Code: 85108-3 Heart Rate 1: 72 bpm Height: 6'3" [...] 1: 142/88 Code: 8480-6 BMI: 26.4 Code: 37822-5 Heart Rate 1: 80 bpm Height: 6'3" [...] labs Encounters Encounter Performer Location Codes Date ([id number]) OFFICE/OUTPATIENT VISIT EST Diagnosis: Type 2 diabetes mellitus with hyperglycemia[ICD10: E11.65] Diagnosis: Essential hypertension[ICD10: I10] Diagnosis: Stress reaction[ICD10: F43.0] Najma Grey [employer] CPT-4: 18300 08/30/2019 ([id number]) NURSE/OUTPATIENT VISIT EST Diagnosis: Essential (primary) hypertension[ICD10: I10] Diagnosis: Type 2 diabetes mellitus with hyperglycemia[ICD10: E11.65] Najma Grey [employer] CPT-4: 06640 08/24/2019 ([id number]) OFFICE/OUTPATIENT VISIT EST Diagnosis: Essential (primary) hypertension[ICD10: I10] Diagnosis: Gastro-esophageal reflux disease without esophagitis[ICD10: K21.9] Diagnosis: Type 2 diabetes mellitus with hyperglycemia[ICD10: E11.65] Najma Grey [employer] CPT-4: 01846 06/02/2019 ([id number]) NURSE/OUTPATIENT VISIT EST Diagnosis: Type 2 diabetes mellitus without complications[ICD10: E11.9] Diagnosis: Essential (primary) hypertension[ICD10: I10] Diagnosis: Mixed hyperlipidemia[ICD10: E78.2] Najma Grey [employer] [facility] CPT-4: 08066 05/24/2019 ([id number]) OFFICE/OUTPATIENT VISIT EST Diagnosis: Essential (primary) hypertension[ICD10: I10] Diagnosis: Type 2 diabetes mellitus without complications[ICD10: E11.9] Diagnosis: Mixed hyperlipidemia[ICD10: E78.2] Najma KATHLEENPrivacyStar [employer] [facility] CPT-4: 27588 01/31/2019 ([id number]) NURSE/OUTPATIENT VISIT EST Diagnosis: Mixed hyperlipidemia[ICD10: E78.2] Diagnosis: Type 2 diabetes mellitus without complications[ICD10: E11.9] Diagnosis: Essential (primary) hypertension[ICD10: I10] Diagnosis: Chronic kidney disease, unspecified[ICD10: N18.9] Najma MANUELLINE Matilda OG [employer] [facility] CPT-4: 50844 01/26/2019 ([id number]) NURSE/OUTPATIENT VISIT EST Diagnosis: Chronic kidney disease, unspecified[ICD10: N18.9] Diagnosis: Essential (primary) hypertension[ICD10: I10] Najma LONG [employer] [facility] CPT-4: 62993 09/30/2018 ([id number]) OFFICE/OUTPATIENT VISIT EST Diagnosis: Essential (primary) hypertension[ICD10: I10] Diagnosis: Type 2 diabetes mellitus without complications[ICD10: E11.9] Diagnosis: Mixed hyperlipidemia[ICD10: E78.2] Diagnosis: Unspecified kidney failure[ICD10: N19] Najma Hevervicentedasha SHABNAM CHAPMAN Matilda LONG [employer] [facility] CPT-4: 64612 08/19/2018 ([id number]) NURSE/OUTPATIENT VISIT EST Diagnosis: Essential (primary) hypertension[ICD10: I10] Diagnosis: Type 1 diabetes mellitus with unspecified complications[ICD10: E10.8] Diagnosis: Mixed hyperlipidemia[ICD10: E78.2] Najma Orenddasha ANUM GODINEZ Matilda OG [employer] [facility] CPT-4: 26927 08/16/2018 ([id number]) OFFICE/OUTPATIENT VISIT EST Diagnosis: Essential (primary) hypertension[ICD10: I10] Diagnosis: Type 2 diabetes mellitus without complications[ICD10: E11.9] Diagnosis: Mixed hyperlipidemia[ICD10: E78.2] Najma OG DO [employer] CPT-4: 27517 05/10/2018 ([id number]) NURSE/OUTPATIENT VISIT EST Diagnosis: Essential (primary) hypertension[ICD10: I10] Diagnosis: Mixed hyperlipidemia[ICD10: E78.2] Diagnosis: Type 1 diabetes mellitus with unspecified complications[ICD10: E10.8] Najma OG DO [facility] CPT-4: 51135 05/05/2018 ([id number]) OFFICE/OUTPATIENT VISIT EST Diagnosis: Type 2 diabetes mellitus without complications[ICD10: E11.9] Diagnosis: Mixed hyperlipidemia[ICD10: E78.2] Diagnosis: Nicotine dependence, unspecified, uncomplicated[ICD10: F17.200] Diagnosis: Essential (primary) hypertension[ICD10: I10] Najma OG DO [employer] CPT-4: 32671 01/19/2018 ([id number]) NURSE/OUTPATIENT VISIT EST Diagnosis: Type 1 diabetes mellitus with unspecified complications[ICD10: E10.8] Diagnosis: Essential (primary) hypertension[ICD10: I10] Diagnosis: Male erectile disorder[ICD10: F52.21] Diagnosis: Encounter for screening for malignant neoplasm of prostate[ICD10: Z12.5] Najma OG DO [employer] CPT-4: 25432 01/13/2018 ([id number]) OFFICE/OUTPATIENT VISIT EST Diagnosis: Type 2 diabetes mellitus without complications[ICD10: E11.9] Diagnosis: Essential (primary) hypertension[ICD10: I10] Diagnosis: Mixed hyperlipidemia[ICD10: E78.2] Najma OG [employer] CPT-4: 64782 10/15/2017 ([id number]) NURSE/OUTPATIENT VISIT EST Diagnosis: Type 2 diabetes mellitus without complications[ICD10: E11.9] Diagnosis: Mixed hyperlipidemia[ICD10: E78.2] Diagnosis: Essential (primary) hypertension[ICD10: I10] Diagnosis: Glossitis[ICD10: K14.0] Najma THAKKAR [employer] CPT-4: 22333 10/06/2017 ([id number]) OFFICE/OUTPATIENT VISIT EST Diagnosis: Type 2 diabetes mellitus without complications[ICD10: E11.9] Diagnosis: Mixed hyperlipidemia[ICD10: E78.2] Diagnosis: Essential (primary) hypertension[ICD10: I10] Najma OG [employer] CPT-4: 19822 03/11/2017 ([id number]) OFFICE/OUTPATIENT VISIT EST Diagnosis: Type 1 diabetes mellitus with unspecified complications[ICD10: E10.8] Diagnosis: Mixed hyperlipidemia[ICD10: E78.2] Diagnosis: Essential (primary) hypertension[ICD10: I10] Diagnosis: Other fatigue[ICD10: R53.83] Najma OG [employer] CPT-4: 26585 03/05/2017 ([id number]) OFFICE/OUTPATIENT VISIT EST Diagnosis: Type 2 diabetes mellitus without complications[ICD10: E11.9] Diagnosis: Mixed hyperlipidemia[ICD10: E78.2] Diagnosis: Essential (primary) hypertension[ICD10: I10] Diagnosis: Nicotine dependence, unspecified, uncomplicated[ICD10: F17.200] Najma OG [employer] CPT-4: 00236 07/09/2016 ([id number]) OFFICE/OUTPATIENT VISIT EST Diagnosis: Type 1 diabetes mellitus with unspecified complications[ICD10: E10.8] Diagnosis: Mixed hyperlipidemia[ICD10: E78.2] Diagnosis: Essential (primary) hypertension[ICD10: I10] Najma OG [employer] CPT-4: 31051 06/16/2016 ([id number]) OFFICE/OUTPATIENT VISIT EST Diagnosis: Type 2 diabetes mellitus without complications[ICD10: E11.9] Diagnosis: Mixed hyperlipidemia[ICD10: E78.2] Diagnosis: Essential (primary) hypertension[ICD10: I10] Najma OG [employer] CPT-4: 05352 03/10/2016 ([id number]) OFFICE/OUTPATIENT VISIT EST Diagnosis: Type 1 diabetes mellitus with unspecified complications[ICD10: E10.8] Diagnosis: Mixed hyperlipidemia[ICD10: E78.2] Diagnosis: Essential (primary) hypertension[ICD10: I10] Najma OG [employer] CPT-4: 66158 03/06/2016 ([id number]) OFFICE/OUTPATIENT VISIT EST Diagnosis: Bitten or stung by nonvenomous insect and other nonvenomous arthropods, subsequent encounter[ICD10: W57.XXXD] Diagnosis: Insect bite (nonvenomous), right thigh, subsequent encounter[ICD10: S70.361D] Barbara Brower NAJMA AmeenaMatilde P[employer] [facility] CPT-4: 75494 11/2015 ([id number]) OFFICE/OUTPATIENT VISIT EST Diagnosis: Bitten or stung by nonvenomous insect and other nonvenomous arthropods, initial encounter[ICD10: W57.XXXA] Diagnosis: Insect bite (nonvenomous), right thigh, initial encounter[ICD10: S70.361A] Barbara Brower NAJMA AmeenaMatilde [employer] [facility] CPT-4: 73434 09/2015 ([id number]) OFFICE/OUTPATIENT VISIT EST Diagnosis: Mixed hyperlipidemia[ICD10: E78.2] Diagnosis: Essential (primary) hypertension[ICD10: I10] Diagnosis: Type 2 diabetes mellitus without complications[ICD10: E11.9] Diagnosis: Encounter for immunization[ICD10: Z23] Diagnosis: Encounter for screening for malignant neoplasm of colon[ICD10: Z12.11] Diagnosis: Abnormal weight gain[ICD10: R63.5] Barbara Brower ANUM GODINEZ [employer] [facility] CPT-4: 93337 09/06/2015 ([id number]) OFFICE/OUTPATIENT VISIT EST Diagnosis: Type 2 diabetes mellitus without complications[ICD10: E11.9] Diagnosis: Mixed hyperlipidemia[ICD10: E78.2] Diagnosis: Essential (primary) hypertension[ICD10: I10] Diagnosis: Encounter for screening for malignant neoplasm of prostate[ICD10: Z12.5] Diagnosis: Other fatigue[ICD10: R53.83] Najma MCARTHUR [employer] [facility] CPT-4: 89871 08/31/2015 OFFICE/OUTPATIENT VISIT EST Diagnosis: Diarrhea, unspecified[ICD10: R19.7] Henrietta MCCOY [employer] [facility] CPT-4: 85149 06/29/2015 OFFICE/OUTPATIENT VISIT EST Diagnosis: PNEUMOCOCCAL VACCINE[ICD10: Z23] Diagnosis: FLU VACCINE[ICD10: Z23] Diagnosis: Essential (primary) hypertension[ICD10: I10] Diagnosis: Mixed hyperlipidemia[ICD10: E78.2] Diagnosis: Type 1 diabetes mellitus with unspecified complications[ICD10: E10.8] Diagnosis: Actinic keratosis[ICD10: L57.0] Najma Kathleenora MCARTHUR Matilda OG [employer] [facility] CPT-4: 25565 01/17/2015 ([id number]) OFFICE/OUTPATIENT VISIT EST Diagnosis: Type 2 diabetes mellitus without complications[ICD10: E11.9] Diagnosis: Impaired fasting glucose[ICD10: R73.01] Diagnosis: Mixed hyperlipidemia[ICD10: E78.2] Diagnosis: Essential (primary) hypertension[ICD10: I10] Najma MCARTHUR Matilda OG [employer] CPT-4: 45508 01/12/2015 ([id number]) OFFICE/OUTPATIENT VISIT EST Diagnosis: - I - HYPERLIPIDEMIA NEC/NOS[ICD9: 272.4] Diagnosis: HYPERTENSION[ICD9: 401.9] Diagnosis: DM W/O COMPLICATION TYPE II[ICD9: 250.00] Diagnosis: ACTINIC KERATOSIS[ICD9: 702.0] Najma MCARTHUR Ameena Clayton [employer] CPT-4: 06994 09/19/2014 ([id number]) OFFICE/OUTPATIENT VISIT EST Diagnosis: HYPERLIPIDEMIA NEC/NOS[ICD9: 272.4] Diagnosis: HYPERTENSION[ICD9: 401.9] Diagnosis: IMPAIRED FASTING GLUCOSE[ICD9: 790.21] Diagnosis: MALAISE AND FATIGUE[ICD9: 780.79] Najma Jenkins Matilda [employer] CPT-4: 20708 08/15/2014 ([id number]) OFFICE/OUTPATIENT VISIT EST Diagnosis: HYPERLIPIDEMIA NEC/NOS[ICD9: 272.4] Diagnosis: HYPERTENSION[ICD9: 401.9] Diagnosis: IMPAIRED FASTING GLUCOSE[ICD9: 790.21] Najma CHAPMAN Matilda [employer] CPT-4: 41786 12/14/2013 ([id number]) OFFICE/OUTPATIENT VISIT EST Diagnosis: Post herpetic neuralgia[ICD9: 053.19] Najma OG [facility] CPT-4: 28220 10/17/2013 OFFICE/OUTPATIENT VISIT EST Diagnosis: Shingles[ICD9: 053.9] Diagnosis: Post herpetic neuralgia[ICD9: 053.19] Jeanie OG [facility] CPT-4: 58415 09/23/2013 ([id number]) OFFICE/OUTPATIENT VISIT EST Diagnosis: HYPERTENSION[ICD9: 401.9] Diagnosis: HYPERLIPIDEMIA NEC/NOS[ICD9: 272.4] Diagnosis: IMPAIRED FASTING GLUCOSE[ICD9: 790.21] Najma OG [facility] CPT-4: 86846 06/20/2013 ([id number]) OFFICE/OUTPATIENT VISIT EST Diagnosis: HYPERLIPIDEMIA NEC/NOS[ICD9: 272.4] Diagnosis: MALAISE AND FATIGUE[ICD9: 780.79] Diagnosis: ROUTINE MEDICAL EXAM[ICD9: V70.0] Diagnosis: HYPERTENSION[ICD9: 401.9] Diagnosis: IMPAIRED FASTING GLUCOSE[ICD9: 790.21] Najma OG [facility] CPT-4: 55907 06/08/2013 ([id number]) OFFICE/OUTPATIENT VISIT EST Diagnosis: HYPERLIPIDEMIA NEC/NOS[ICD9: 272.4] Diagnosis: HYPERTENSION[ICD9: 401.9] Diagnosis: IMPAIRED FASTING GLUCOSE[ICD9: 790.21] Diagnosis: DIARRHEA[ICD9: 787.91] Najma MCARTHUR AmeenaMatilde BRITTNI Stallings [facility] CPT-4: 87192 11/25/2012 ([id number]) OFFICE/OUTPATIENT VISIT EST Diagnosis: HYPERLIPIDEMIA NEC/NOS[ICD9: 272.4] Diagnosis: HYPERTENSION[ICD9: 401.9] Diagnosis: IMPAIRED FASTING GLUCOSE[ICD9: 790.21] Diagnosis: MALAISE AND FATIGUE[ICD9: 780.79] Najma Jeknins [facility]enaMatilde [facility] CPT-[facility]: 14292 11/11/2012 OFFICE/OUTPATIENT VISIT EST Diagnosis: Fungal dermatitis[ICD9: 111.9] Diagnosis: Dry skin dermatitis[ICD9: 692.89] Henrietta Grey HEVERVICENTEER DO [facility] CPT-4: 32632 08/27/2012 ([id number]) OFFICE/OUTPATIENT VISIT EST Diagnosis: HYPERTENSION[ICD9: 401.9] Diagnosis: HYPERLIPIDEMIA NEC/NOS[ICD9: 272.4] Najma OG DO [facility] CPT-4: 17515 05/11/2012 ([id number]) OFFICE/OUTPATIENT VISIT EST Diagnosis: HYPERLIPIDEMIA NEC/NOS[ICD9: 272.4] Diagnosis: HYPERTENSION[ICD9: 401.9] Diagnosis: ROUTINE MEDICAL EXAM[ICD9: V70.0] Najma OG DO [facility] CPT-4: 72995 05/04/2012 ([id number]) OFFICE/OUTPATIENT VISIT EST Diagnosis: HYPERTENSION[ICD9: 401.9] Diagnosis: HYPERLIPIDEMIA NEC/NOS[ICD9: 272.4] Diagnosis: IMPAIRED FASTING GLUCOSE[ICD9: 790.21] Najma OG DO [facility] CPT-4: 78732 12/11/2011 ([id number]) OFFICE/OUTPATIENT VISIT EST Diagnosis: HYPERLIPIDEMIA NEC/NOS[ICD9: 272.4] Diagnosis: HYPERTENSION[ICD9: 401.9] Diagnosis: IMPAIRED FASTING GLUCOSE[ICD9: 790.21] Najma OG DO [facility] CPT-4: 82352 10/29/2011 ([id number]) OFFICE/OUTPATIENT VISIT EST Diagnosis: HYPERTENSION[ICD9: 401.9] Najma PAYAN DO [facility] CPT-4: 39649 08/14/2011 ([id number]) OFFICE/OUTPATIENT VISIT EST Diagnosis: HYPERTENSION[ICD9: 401.9] Diagnosis: IMPAIRED FASTING GLUCOSE[ICD9: 790.21] Najma OG DO [facility] CPT-4: 43757 07/29/2011 ([id number]) OFFICE/OUTPATIENT VISIT EST Diagnosis: HYPERTENSION[ICD9: 401.9] Najma PAYAN DO [facility] CPT-4: 51703 07/23/2011 ([id number]) OFFICE/OUTPATIENT VISIT EST Diagnosis: HYPERTENSION[ICD9: 401.9] Najma PAYAN DO [facility] CPT-4: 47070 06/24/2011 OFFICE/OUTPATIENT VISIT EST Diagnosis: HYPERTENSION[ICD9: 401.9] Najma PAYAN DO [facility] CPT-4: 07897 05/20/2011 OFFICE/OUTPATIENT VISIT EST Diagnosis: HYPERTENSION[ICD9: 401.9] Najma ZARATER [facility] CPT-4: 63894 04/15/2011 OFFICE/OUTPATIENT VISIT EST Diagnosis: HYPERLIPIDEMIA NEC/NOS[ICD9: 272.4] Diagnosis: IMPAIRED FASTING GLUCOSE[ICD9: 790.21] aNjma OG DO [facility] CPT-4: 56670 03/18/2011 ([id number]) OFFICE/OUTPATIENT VISIT EST Najma OG DO [employer] CPT-4: 10579 07/30/2010 ([id number]) PREV VISIT, EST, AGE 40-64 Najma OG DO [facility] CPT-4: 13048 04/24/2010 Plan of Care Planned Activity Notes [...] Patient Education: escitalopram oxalate- [employer] Co upon [id number] [email or web address] Completed 08/30/2019 Appointment: [facility]aj[facility] [phone] [id number] [facility] 08/24/2019 Visit Diagnosis Plan: [...] : K21.9 06/02/2019 Appointment: Najma Og WPtel: [address] [place] [address] US FOLLOW UP 06/02/2019 Appointment: Najma Og WPtel: [address] [place], [place] [phone] US LAB 05/24/2019 Visit Diagnosis Plan: Essential [...] ICD-10 : E78.2 01/31/2019 Appointment: Najma Ogtel: [address] [place], [place] [phone] US FOLLOW UP 01/31/2019 Appointment: Najma Og WPtel: [address] [place], [place] [phone] US LAB 01/26/2019 Appointment: Najma Og WPtel: [address] [place], [place] [phone] US LAB 09/30/2018 Visit Diagnosis Plan: Unspecified [...] : E11.9 08/19/2018 Appointment: Najma Og WPtel: [address] [place], [place] [phone] FOLLOW UP 08/19/2018 Appointment: Najma Og WPtel: [address] [place], [place] [phone] US LAB 08/16/2018 Visit Diagnosis Plan: Essential [...] : E78.2 05/10/2018 Appointment: Najma Og WPtel: [address] [place], [place] [phone] FOLLOW UP 05/10/2018 Patient Education: Low Back Pain Exercises: Illustration Completed 05/10/2018 Patient Education: Low Back Pain Exercises Completed 05/10/2018 Appointment: Najma Og WPtel: [address] [place], [place] [phone] US LAB 05/05/2018 Visit Diagnosis Plan: Type [...] : E78.2 01/19/2018 Appointment: Najma Og WPtel: [address] [place], [place] [id number] FOLLOW UP 01/19/2018 Patient Education: Patient Medication Summary Completed 01/19/2018 Appointment: Najma Og WPtel: [address] [place], [place] [id number] US LAB 01/13/2018 Patient Education: Patient Medication [...] : I10 10/15/2017 Appointment: Najma Og WPtel: [address] [place], [place] [phone] US FOLLOW UP 10/15/2017 Patient Education: Patient Medication Summary Completed 10/15/2017 Appointment: Najma Og WPtel: [address] [place], [place] [id number] [place] LAB 10/06/2017 Patient Education: Patient Medication Summary Completed 10/06/2017 Visit Diagnosis Plan: Actinic keratosis Discussion: Cr yotherapy as above ICD-9 : 702.0 ICD-10 : L57.0 04/23/2017 Appointment: Najma Og WPtel: [address] [place], [place] [id number] OFFICE SURGERY 04/23/2017 Patient Education: Patient Medication [...] : E78.2 03/11/2017 Appointment: Najma Og WPtel: [address] [place], [place] [phone] [place] FOLLOW UP 03/11/2017 Patient Education: Patient Medication Summary Completed 03/11/2017 Appointment: Najma Og WPtel: [address] [place], [place] [id number] LAB 03/05/2017 Patient Education: Patient Medication Summary [...] 305.1 ICD-10 : F17.200 07/09/2016 Appointment: Najma gO WPtel: [address] [place] [id number] [place] 07/08 lm ~sl 07/09 confirmed~sl FOLLOW UP 08/2016 Patient Education: Patient Medication Summary Completed 07/09/2016 Appointment: Najma Og WPtel: [address] [place], [place] [id number] [place] LAB 06/16/2016 Patient Education: Patient Medication Summary Completed 06/16/2016 Visit Plan: Lab discussed Accjeremy shine Lifestyle change for 3mos then check CMP, HbA1C in 3mos Has had flu and pneumonia shot 03/10/2016 Appointment: Najma Og WPtel: [address] [place], [place] [phone] 03/06 confirmed `sl FOLLOW UP 03/10/2016 Patient Education: Patient Medication Summary Completed 03/10/2016 Appointment: Najma Og WPtel: [address] [place], [place] [phone] LAB 03/06/2016 Patient Education: Patient Medication Summary Completed 03/06/2016 Referral: Donavon Keller WPtel: [address] [id number] [place] Referral Completed 10/22/2015 Visit Plan: Tick bite area looks much be tter Continue current rxs and close monitoring Follow up if any new symptoms or worsening appearance 09/12/2015 Appointment: Barbara Brower [address] [place], [place] [id number] 09/10 confirmed~sl FOLLOW UP 09/12/2015 Patient Education: Patient Medication Summary Completed 09/12/2015 Visit Plan: Cover as above 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 topical steroids to calm down the inflammation(suspect most of redness is due to histamine response vs infection) Monitor closely Follow up in 2 days to recheck 09/10/2015 Appointment: Barbara Brower [address] [place] [address] ACUTE ILLNESS 09/10/2015 Patient Education: Patient Medication [...] shingles vaccine 09/06/2015 Appointment: Barbara Brower [address] [place], [place] [phone] FOLLOW UP 09/06/2015 Patient Education: Patient Medication Summary Completed 09/06/2015 Care Plan: Referral Order SNOMED-CT : [id number] Pending 09/06/2015 Appointment: Najma Og WPtel: [address] [place], [place] [phone] US LAB 08/31/2015 Patient Education: Patient Medication [...] to UC/ER. 06/29/2015 Appointment: Henrietta Lubin WPtel: [address] [place], [place] [id number] ACUTE ILLNESS 06/29/2015 Patient Education: Patient Medication Summary Completed 06/29/2015 Visit Plan: Lab discussed Will keep meds the same Discussed diet/exercise at length Cryotherapy as above to AKs of arms Flu and Prevnar 13 given Trial of revatio per patient request for ED--warned of no nitrates Recheck 4mos 01/17/2015 Appointment: Najma Og WPtel: [address] [place] [address] 01/16 confirmed~sl FOLLOW UP 01/17/2015 Patient Education: Patient Medication Summary Completed 01/17/2015 Appointment: Najma Og WPtel: [address] [place], [place] [phone] US LAB 01/12/2015 Patient Education: Patient Medication Summary Completed 01/12/2015 Visit Plan: Lab discussed Start accuchec ks daily Cryotherapy as above 09/19/2014 Appointment: Najma Og WPtel: [address] [place], [place] [phone] 09/18 confirmed -mf FOLLOW UP 09/19/2014 Patient Education: Patient Medication Summary Completed 09/19/2014 Appointment: Najma Og WPtel: [address] [place], [place] [phone] US LAB 08/15/2014 Patient Education: Patient Medication Summary Completed 08/15/2014 Appointment: Najma Og WPtel: [address] [place] [address] ACUTE ILLNESS 12/14/2013 Patient Education: Patient Medication Summary Completed 12/14/2013 Visit Plan: Patient using tylenol prn pa in Discussed possible shingles shot for booster in 9-12mos 10/17/2013 Appointment: Namja Og WPtel: [address] [place] [address] FOLLOW UP 10/17/2013 Patient Education: Patient Medication Summary Completed 10/17/2013 Appointment: Jeanie Briceño WPtel: [address] [place] [address] ACUTE ILLNESS 09/23/2013 Patient Education: Patient Medication Summary Completed 09/23/2013 Appointment: Najma Og WPtel: [address] [place] [address] BP CHECK 07/22/2013 Patient Education: Patient Medication Summary Completed 07/22/2013 Visit Plan: Lab discussed Discussed swit arun amlodopine to beta slim to see if helps with tremor BP check in 1mo 06/20/2013 Appointment: Najma Og WPtel: [address] [place] [address] 06/17 no answer FOLLOW UP 06/20/2013 Patient Education: Patient Medication Summary Completed 06/20/2013 Appointment: Najma Og WPtel: [address] [place], [place] [phone] US LAB 06/08/2013 Patient Education: Patient Medication Summary Completed 06/08/2013 Visit Plan: BRAT diet and yogurt and gat orade Lab discussed Continue current meds Spot checks on BS 11/25/2012 Appointment: Najma Og WPtel: [address] [place], [place] [id number] 11/24 vm FOLLOW UP 11/25/2012 Patient Education: Patient Medication Summary Completed 11/25/2012 Appointment: Najma Og WPtel: [address] [place], [place] [phone] LAB 11/11/2012 Patient Education: Patient Medication Summary Completed 11/11/2012 Appointment: Henrietta Lubin WPtel: [address] [place], [place] [phone] WORK IN 08/27/2012 Patient Education: Patient Medication Summary Completed 08/27/2012 Visit Plan: Pt going to get new home BP moniter Continue crestor and restart fish oil and will check fasting lab in 6mos Lab results discussed 05/11/2012 Appointment: Najma Og WPtel: [address] [place], [place] [phone] 05/10 FOLLOW UP 05/11/2012 Patient Education: Patient Medication Summary Completed 05/11/2012 Appointment: Najma Og WPtel: [address] [place], [place] [phone] LAB 05/04/2012 Patient Education: Patient Medication Summary Completed 05/04/2012 Visit Plan: 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 and forehead 03/02/2012 Appointment: Najma gO WPtel: [address] [place], [place] [phone] 03/01 OFFICE SURGERY 03/02/2012 Patient Education: Patient Medication Summary Completed 03/02/2012 Visit Plan: Labs discussed--recheck lab end of Feb/ of Mar Continue current meds and continue to moniter BS daily and BP 1-2 times a week Plan on cryotherapy this fall so can wear longsleeves after procedure See urology 12/11/2011 Appointment: Najma Og WPtel: [address] [place], [place] [phone] FOLLOW UP 12/11/2011 Patient Education: Patient Medication Summary Completed 12/11/2011 Appointment: Najma Og WPtel: [address] [place], [place] [phone] US LAB 10/29/2011 Patient Education: Patient Medication Summary Completed 10/29/2011 Appointment: Najma Og WPtel: [address] [place] [address] BP CHECK 08/14/2011 Patient Education: Patient Medication Summary Completed 08/14/2011 Appointment: Najma Og WPtel: [address] [place] [address] ACUTE ILLNESS 07/29/2011 Patient Education: Patient Medication Summary Completed 07/29/2011 Appointment: Najma Og WPtel: [address] [place] [address] BP CHECK 07/23/2011 Patient Education: Patient Medication Summary Completed 07/23/2011 Appointment: Najma Og WPtel: [address] [place] [address] BP CHECK 06/24/2011 Patient Education: Patient Medication Summary Completed 06/24/2011 Appointment: Najma Og WPtel: [address] [place] [address] BP CHECK 05/20/2011 Patient Education: Patient Medication Summary Completed 05/20/2011 Appointment: Najma Og WPtel: [address] [place] [address] BP CHECK 04/29/2011 Patient Education: Patient Medication Summary Completed 04/29/2011 Appointment: Najma Og WPtel: [address] [place] [address] BP CHECK 04/15/2011 Patient Education: Patient Medication Summary Completed 04/15/2011 Visit Plan: Continue current meds Add fi sh oil 1gm daily Glucometer given to use for accuchecks prn 03/18/2011 Appointment: Najma Og WPtel: [address] [place] [address] FOLLOW UP 03/18/2011 Patient Education: Patient Medication Summary Completed 03/18/2011 Appointment: Najma Og WPtel: [address] [place], [place] [phone] US LAB 03/14/2011 Patient Education: Patient Medication Summary Completed 03/14/2011 Appointment: Najma Og WPtel: [address] [place], [place] [phone] US LAB 11/11/2010 Appointment: Najma Og WPtel: [phone] [place], [place] [phone] [place] UA 11/11/2010 Patient Education: Patient Medication Summary Completed 11/11/2010 Appointment: Najma Og WPtel: [address] [place], [place] [phone] LAB 10/29/2010 Patient Education: Patient Medication Summary Completed 10/29/2010 Appointment: Najma Og WPtel: [address] [place], [place] [id number] [place] FOLLOW UP 07/30/2010 Patient Education: Patient Medication Summary Completed 07/30/2010 Appointment: Najma Og WPtel: [address] [place], [place] [phone] US LAB 07/23/2010 Patient Education: Patient Medication Summary Completed 07/23/2010 Appointment: Najma Og WPtel: [address] [place], [place] [phone] LAB 04/26/2010 Patient Education: Patient Medication Summary Completed 04/26/2010 Visit Plan: Add PSA to lab Restart Crest or at 10mg daily Trial of Wellbutrin to aid in smoking cessation Check Lipids and LFTs in 3mos 04/24/2010 Appointment: Najma Og WPtel: [address] [place], [place] [phone] [place] FOLLOW UP 04/24/2010 Patient Education: Patient Medication Summary Completed 04/24/2010 Appointment: Najma Og WPtel: [phone] [id number] US LAB 04/19/2010 Patient Education: Patient Medication Summary Completed 04/19/2010 Referral: Donavon Keller WPtel: [facility] [address] [id number] US Referral Completed Instructions Comment . Lab [...] + labs. CBC & CMP at [facility] Discussed needed oral hydration (preferably with sports [...]
--- OUTSIDE RECORDS SUMMARY | 2019-10-14 22:35 | XMS REPORT | CCD ---
Author Author Inocente Og D.O. 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 PP Unavailable CCM Unavailable Summary Purpose Interface Exchange Insurance Providers Payer name Policy type / Coverage type Covered green party ID Effective Begin Date Effective End Date [employer] MEDICARE Medicare Part B [id number] Unknown [facility] Medicare Part B [id number] Un known Family history Father Diagnosis Age At Onset Diabetes mellitus Type 2 Unknown Myocardial infarction Unknown Brother Diagnosis Age At Onset Diabetes mellitus Type 2 Unknown Mother Diagnosis Age At Onset Osteoarthritis Unknown Cerebrovascular disease Unknown Social History Social History Element Codes Description Effective Dates Tobacco history SNOMED CT: 342598373 Never smoker 12/21/2014 Marital status Unknown 07/30/2010 [...] Condition Codes Effective Dates Condition Status Essential (primary) hypertension ICD-9: 401.9 ICD-10: I10 07/22/2013 Active Type 2 diabetes mellitus with hyperglycemia [...] Instructions fenofibrate micronized 134 mg capsule RxNorm: 209921 TA KE 1 CAPSULE BY MOUTH ONCE DAILY FOR TRIGLYCERIDES 07/08/2019 10/05/2019 Active amlodipine 5 mg tablet RxNorm: 917336 TAKE 1 TABLET BY MOUTH ON CE DAILY 06/16/2019 09/13/2019 Active metformin ER 500 mg tablet,extended release 24 hr RxNorm: 86 0975 TAKE 1 TABLET BY MOUTH ONCE DAILY 06/10/2019 09/07/2019 Active propranolol ER 80 mg capsule,24 hr,extended release RxNorm: 845789 TAKE 1 CAPSULE BY MOUTH ONCE DAILY 06/10/2019 09/07/2019 Active Vitamin D3 25 mcg (1,000 unit) capsule RxNorm: 664818 1 Capsule(s) Oral two times a day 06/02/2019 No Stop Date Active turmeric 400 mg capsule RxNorm: 1 Capsule(s) Oral QD 06/02/2019 No Stop Date Active Fish Oil 120 mg-180 mg-500 mg capsule RxNorm: 2 Capsule(s) Ora l QD 06/02/2019 No Stop Date Active 16.2 mg-0.1037 mg-0.0194 mg tablet RxNorm: 3341070 1 Tablet(s) Oral four times a day as needed abdominal pain/diarrhea 06/02/2019 No Stop D ate Active fenofibrate micronized 134 mg capsule RxNorm: 271318 1 Capsule(s) Oral QD for triglycerides 04/14/2019 07/07/2019 Inactive amlodipine 5 mg tablet RxNorm: 561879 TAKE 1 TABLET BY MOUTH ON CE DAILY 03/22/2019 06/15/2019 Inactive metformin ER 500 mg tablet,extended release 24 hr RxNorm: 86 0975 TAKE 1 TABLET BY MOUTH ONCE DAILY 03/15/2019 06/09/2019 Inactive propranolol ER 80 mg capsule,24 hr,extended release RxNorm: 110444 TAKE 1 CAPSULE BY MOUTH ONCE DAILY 03/15/2019 06/09/2019 Inactive amlodipine 5 mg tablet RxNorm: 601616 1 Tablet(s) PO QD 12/27/2018 Inactive fenofibrate micronized 134 mg capsule RxNorm: 428372 TA KE 1 CAPSULE BY MOUTH ONCE DAILY FOR TRIGLYCERIDES 10/11/2018 04/13/2019 Inactive amlodipine 5 mg tablet RxNorm: 791185 1 Tablet(s) PO QD 09/30/2018 Inactive metformin ER 500 mg tablet,extended release 24 hr RxNorm: 86 0975 TAKE 1 TABLET BY MOUTH ONCE DAILY 09/21/2018 03/14/2019 Inactive propranolol ER 80 mg capsule,24 hr,extended release RxNorm: 325788 TAKE 1 CAPSULE BY MOUTH ONCE DAILY 09/21/2018 03/14/2019 Inactive amlodipine 5 mg tablet RxNorm: 427322 1 Tablet(s) PO QD 08/25/2018 Inactive amlodipine 5 mg tablet RxNorm: 145667 1 Tablet(s) PO QD 08/25/2018 Inactive lisinopril 40 mg tablet RxNorm: 880621 TAKE 1 TABLET BY MOUTH O NCE DAILY 07/21/2018 08/24/2018 Inactive fenofibrate micronized 134 mg capsule RxNorm: 002098 TA KE 1 CAPSULE BY MOUTH ONCE DAILY FOR TRIGLYCERIDES 07/12/2018 10/10/2018 Inactive propranolol ER 80 mg capsule,24 hr,extended release RxNorm: 205952 TAKE 1 CAPSULE BY MOUTH ONCE DAILY 06/21/2018 09/20/2018 Inactive lisinopril 40 mg tablet RxNorm: 126785 TAKE 1 TABLET BY MOUTH O NCE DAILY 04/26/2018 07/20/2018 Inactive metformin ER 500 mg tablet,extended release 24 hr RxNorm: 010104 1 Tablet(s) QD 03/31/2018 09/20/2018 Inactive lisinopril 40 mg tablet RxNorm: 292507 TAKE 1 TABLET BY MOUTH O NCE DAILY 01/28/2018 04/25/2018 Inactive Vitamin D3 5,000 unit tablet RxNorm: 498975 1 Tablet(s) PO QD 01/1908/18/2018 Inactive fenofibrate micronized 134 mg capsule RxNorm: 792451 1 Capsule(s) PO QD for triglycerides 01/19/2018 07/11/2018 Inactive metformin ER 500 mg tablet,extended release 24 hr RxNorm: 133420 1 Tablet(s) QD 12/31/2017 03/30/2018 Inactive metformin ER 500 mg tablet,extended release 24 hr RxNorm: 032797 Tablet(s) 12/30/2017 12/30/2017 Inactive propranolol ER 80 mg capsule,24 hr,extended release RxNorm: 005720 1 Capsule(s) PO QD 12/17/2017 06/14/2018 Inactive metformin ER 500 mg tablet,extended release 24 hr RxNorm: 86 0975 1 Tablet(s) PO QD DUE FOR LABS AND APPT 12/02/2017 12/30/2017 Inactive Crestor 10 mg tablet RxNorm: 856010 TAKE ONE TABLET BY MOUTH ON CE DAILY 11/01/2017 01/18/2018 Inactive lisinopril 40 mg tablet RxNorm: 492182 TAKE ONE TABLET BY MOUTH ONCE DAILY [...] ER 80 mg capsule,24 hr,extended release RxNorm: 051032 1 Capsule(s) PO QD DUE FOR APPT 09/08/2017 12/17/2017 Inactive Crestor 10 mg tablet RxNorm: 578779 1 Tablet(s) PO QD T CHELSI ONE TABLET BY MOUTH DAILY 03/11/2017 09/06/2017 Inactive propranolol ER 80 mg capsule,24 hr,extended release RxNorm: 601726 1 Capsule(s) PO QD TAKE ONE CAPSULE BY MOUTH DAILY - REPLACES AMLODOPINE 03/11/2017 09/08/2017 Inactive metformin ER 500 mg tablet,extended release 24 hr RxNorm: 86 0975 1 Tablet(s) PO QD 03/11/2017 09/08/2017 Inactive lisinopril 40 mg tablet RxNorm: 977168 1 Tablet(s) PO QD 03/11/2017 0 09/06/2017 Inactive lisinopril 40 mg tablet RxNorm: 318247 1 Tablet(s) PO QD 02/16/2017 1 05/11/2016 Inactive metformin ER 500 mg tablet,extended release 24 hr RxNorm: 86 0975 1 Tablet(s) PO QD Due for labs and follow up before further refills 02/16/2017 017 Inactive propranolol ER 80 mg capsule,24 hr,extended release RxNorm: 910278 Capsule(s) TAKE ONE CAPSULE BY MOUTH DAILY - REPLACES AMLODOPINE 11/19/20162016 Inactive lisinopril 40 mg tablet RxNorm: 603006 1 Tablet(s) PO QD 11/17/2016 1 04/18/2016 Inactive metformin ER 500 mg tablet,extended release 24 hr RxNorm: 86 0975 1 Tablet(s) PO QD 11/17/2016 02/16/2017 Inactive lisinopril 40 mg tablet RxNorm: 643783 1 Tablet(s) PO Q D TAKE ONE TABLET BY MOUTH DAILY 08/19/2016 11/17/2016 Inactive metformin ER 500 mg tablet,extended release 24 hr RxNorm: 86 0975 Tablet(s) TAKE ONE TABLET BY MOUTH DAILY 08/19/2016 11/16/2016 Inactive propranolol ER 80 mg capsule,24 hr,extended release RxNorm: 343726 Capsule(s) TAKE ONE CAPSULE BY MOUTH DAILY - REPLACES AMLODOPINE 08/19/20162016 Inactive Crestor 10 mg tablet RxNorm: 237559 TAKE ONE TABLET BY MOUTH DAILY 06/16/2016 03/10/2017 Inactive lisinopril 40 mg tablet RxNorm: 011885 1 Tablet(s) PO Q D TAKE ONE TABLET BY MOUTH DAILY 05/23/2016 08/18/2016 Inactive metformin ER 500 mg tablet,extended release 24 hr RxNorm: 86 0975 TAKE ONE TABLET BY MOUTH DAILY 05/23/2016 08/19/2016 Inactive propranolol ER 80 mg capsule,24 hr,extended release RxNorm: 137060 TAKE ONE CAPSULE BY MOUTH DAILY - REPLACES AMLODOPINE 05/23/2016 08/19/[address] [place] [facility] Crestor 10 mg tablet RxNorm: 110384 TAKE ONE TABLET BY MOUTH DAILY 03/31/2016 06/15/2016 Inactive metformin ER 500 mg tablet,extended release 24 hr RxNorm: 86 0975 TAKE ONE TABLET BY MOUTH DAILY 02/19/2016 05/22/2016 Inactive propranolol ER 80 mg capsule,24 hr,extended release RxNorm: 924650 TAKE ONE CAPSULE BY MOUTH DAILY - REPLACES AMLODOPINE 11/23/2015 05/20/2016 [place] [facility] metformin ER 500 mg tablet,extended release 24 hr RxNorm: 86 0975 TAKE ONE TABLET BY MOUTH DAILY 11/08/2015 02/05/2016 Inactive Bactroban Nasal 2 % ointment RxNorm: 544360 Apply topic ally to affected area twice daily 09/10/2015 03/09/2016 Inactive Vibramycin 100 mg capsule RxNorm: 338592 1 Capsule(s) PO BID 201509/23/2015 Inactive lisinopril 40 mg tablet RxNorm: 281475 1 Tablet(s) PO Q D TAKE ONE TABLET BY MOUTH DAILY 08/27/2015 02/22/2016 Inactive metformin ER 500 mg tablet,extended release 24 hr RxNorm: 86 0975 TAKE ONE TABLET BY MOUTH DAILY 08/06/2015 11/03/2015 Inactive Levsin/SL 0.125 mg sublingual tablet RxNorm: 1089858 1 T ablet(s) SL Q4H as needed for stomach cramps 06/29/2015 07/03/2015 Inactive lisinopril 40 mg tablet RxNorm: 967817 Tablet(s) TAKE ONE TABLE T BY MOUTH DAILY 06/07/2015 08/26/2015 Inactive propranolol ER 80 mg capsule,24 hr,extended release RxNorm: 863660 TAKE ONE CAPSULE BY MOUTH DAILY - REPLACES AMLODOPINE 05/30/2015 11/22/2015 [place] [facility] metformin ER 500 mg tablet,extended release 24 hr RxNorm: 86 0975 1 Tablet(s) PO QD 05/10/2015 08/05/2015 Inactive Crestor 10 mg tablet RxNorm: 366683 TAKE ONE TABLET BY MOUTH DAILY 04/18/2015 10/14/2015 Inactive metformin ER 500 mg tablet,extended release 24 hr RxNorm: 86 0975 TAKE ONE TABLET BY MOUTH DAILY 02/07/2015 05/10/2015 Inactive sildenafil 20 mg tablet RxNorm: 229380 1 Tablet(s) PO QD 01/17/2015 1 04/17/2014 Inactive propranolol ER 80 mg capsule,24 hr,extended release RxNorm: 651943 1 Capsule(s) PO QD replaces amlodopine 11/28/2014 05/26/2015 Inactive [[facility] -- BIN:[id number], PCN: [id number], Group: [id number], ID# [id number], Process claim through [employer], for questions: . THIS IS NOT INSURANCE.] lisinopril 40 mg tablet RxNorm: 436728 TAKE ONE TABLET BY MOUTH DAILY 11/16/2014 06/07/2015 Inactive lisinopril 40 mg tablet RxNorm: 884157 1 Tablet(s) PO QD 08/21/2014 0 11/15/2014 Inactive [AttnRPh: Saving apply/adjudicate RxGRP: [id number] RxBIN:[id number] RxPCN: ID#:[id number]] lisinopril 40 mg tablet RxNorm: 984087 1 Tablet(s) PO Q D NEEDS SEEN FOR APPOINTMENT 07/14/2014 08/21/2014 Inactive [AttnRPh: Saving apply/adjudicate RxGRP:SG20 RxBIN:[id number] RxPCN: ID#:[id number]] Crestor 10 mg tablet RxNorm: 845547 TAKE ONE TABLET BY MOUTH EV EILEEN07/06/2014 01/01/2015 Inactive metformin ER 500 mg tablet,extended release 24 hr RxNorm: 86 0975 1 Tablet(s) QD TAKE ONE TABLET BY MOUTH ONCE A DAY 06/09/2014 12/05/2014 Inactive propranolol ER 80 mg capsule,24 hr,extended release RxNorm: 343251 1 Capsule(s) PO QD replaces amlodopine 06/05/2014 11/28/2014 Inactive [[facility] -- BIN:[id number], PCN: [id number], Group: [id number], ID# [id number], Process claim through [employer], for questions: . THIS IS NOT INSURANCE.] propranolol ER 80 mg capsule,24 hr,extended release RxNorm: 700322 1 Capsule(s) PO QD replaces amlodopine 03/07/2014 06/05/2014 Inactive [[facility] -- BIN:[id number], PCN: [id number], Group: [id number], ID# [id number], Process claim through [employer], for questions: . THIS IS NOT INSURANCE.] metformin ER 500 mg tablet,extended release 24 hr RxNorm: 86 0975 TAKE ONE TABLET BY MOUTH ONCE A DAY 12/15/2013 06/09/2014 Inactive propranolol ER 80 mg capsule,24 hr,extended release RxNorm: 718094 1 Capsule(s) PO QD replaces amlodopine 12/09/2013 03/07/2014 Inactive [[facility] -- BIN:[id number], PCN: [id number], Group: [id number], ID# [id number], Process claim through [employer], for questions: . THIS IS NOT INSURANCE.] acyclovir 800 mg tablet RxNorm: 038766 1 Tablet(s) PO QID 09/23/2013 09/29/2013 Inactive gabapentin 300 mg capsule RxNorm: 511100 1 Capsule(s) PO BID 201310/07/2013 Inactive metformin ER 500 mg tablet,extended release 24 hr RxNorm: 86 0975 1 Tablet(s) PO QD 09/19/2013 12/14/2013 Inactive propranolol ER 80 mg capsule,24 hr,extended release RxNorm: 401242 1 Capsule(s) PO QD replaces amlodopine 09/15/2013 12/09/2013 Inactive metformin ER 500 mg 24 hr tablet,extended release RxNorm: 86 0975 1 Tablet(s) PO QD 09/15/2013 09/18/2013 Inactive lisinopril 40 mg tablet RxNorm: 329387 1 Tablet(s) PO QD 07/19/2013 0 07/14/2014 Inactive Crestor 10 mg tablet RxNorm: 151436 Tablet(s) PO TAKE O NE TABLET BY MOUTH EVERY DAY 07/12/2013 07/05/2014 Inactive propranolol ER 80 mg capsule,24 hr,extended release RxNorm: 174085 1 Capsule(s) PO QD replaces amlodopine 06/20/2013 09/15/2013 Inactive triamcinolone acetonide 0.1 % topical ointment RxNorm: 87626 36 Application TOP BID 06/20/2013 06/26/2013 Inactive Crestor 10 mg tablet RxNorm: 626966 1 Tablet(s) PO QD 04/18/201310/2013 Inactive Viagra 100 mg tablet RxNorm: 452986 1 Tablet(s) PO as directed 01/0508/18/2018 Inactive TAKE ONE TABLET BY MOUTH DIRECTED Crestor 10 mg tablet RxNorm: 887533 1 Tablet(s) PO QD 01/17/201304/06 Inactive metformin ER 500 mg tablet,extended release 24 hr RxNorm: 86 0975 1 Tablet(s) PO QD TAKE ONE TABLET BY MOUTH EVERY DAY 12/23/2012 09/15/2013 Inactive triamcinolone acetonide 0.1 % topical ointment RxNorm: 18605 36 Application TOP BID 08/27/2012 09/02/2012 Inactive ketoconazole 2 % topical cream RxNorm: 973499 1 Application TOP QAM 08/27/2012 09/02/2012 Inactive lisinopril 40 mg tablet RxNorm: 057175 1 Tablet(s) PO QD 07/21/2012 0 07/15/2013 Inactive Crestor 10 mg tablet RxNorm: 231028 1 Tablet(s) PO QD 07/21/201210/04 Inactive amlodipine 10 mg tablet RxNorm: 116040 1 Tablet(s) PO QHS 07/21/2012 07/15/2013 Inactive metformin ER 500 mg tablet,extended release 24 hr RxNorm: 86 0977 Tablet(s) PO TAKE ONE TABLET BY MOUTH EVERY DAY 03/31/2012 12/22/2012 Inactive lisinopril 40 mg tablet RxNorm: 610256 1 Tablet(s) PO QD 07/29/2011 0 07/20/2012 Inactive amlodipine 10 mg tablet RxNorm: 301299 1 Tablet(s) PO QHS 07/29/2011 07/20/2012 Inactive amlodipine 10 mg Tab RxNorm: 663444 1 Tablet(s) PO QHS 07/29/2011 Inactive Viagra 100 mg tablet RxNorm: 364251 1 Tablet(s) PO as directed 07/0601/24/2013 Inactive TAKE ONE TABLET BY MOUTH DIRECTED Crestor 10 mg tablet RxNorm: 566157 1 Tablet(s) PO QD 07/29/201107/05 Inactive Norvasc 5 mg Tab RxNorm: 351738 1 Tablet(s) PO QD 07/16/2011 07/28/19 12 Inactive Norvasc 5 mg Tab RxNorm: 924683 1 Tablet(s) PO QD 06/26/2011 07/15/19 12 Inactive lisinopril 40 mg Tab RxNorm: 643588 1 Tablet(s) PO QD 05/13/201107/06 Inactive metformin ER 500 mg tablet,extended release 24 hr RxNorm: 86 0977 1 Tablet(s) PO QD 03/18/2011 07/28/2011 Inactive Crestor 10 mg Tab RxNorm: 218464 1 Tablet(s) PO QHS 01/27/20112011 Inactive metformin ER 500 mg 24 hr Tab RxNorm: 836359 1 Tablet(s) PO QD 11/0403/17/2011 Inactive Viagra 100 mg Tab RxNorm: 775055 Tablet(s) PO TAKE ON E TABLET BY MOUTH DIRECTED 08/26/2010 07/28/2011 Inactive metformin ER 500 mg 24 hr Tab RxNorm: 095160 1 Tablet(s) PO QD 07/0611/18/2010 Inactive Crestor 10 mg Tab RxNorm: 085601 1 Tablet(s) PO QHS 07/30/20102010 Inactive Crestor 10 mg Tab RxNorm: 821570 1 Tablet(s) PO QHS 05/20/20102010 Inactive Wellbutrin SR 150 mg Tab RxNorm: 260702 1 Tablet(s) PO QAM 04/24/19 11 07/22/2010 Inactive Multivitamin And Mineral tablet RxNorm: 1 Tablet(s) PO QD No Start Date Active FreeStyle Lite Strips RxNorm: 1 Unit Dose Miscel laneous AC & HS check blood sugar AC and HS No Start Date Active Co Q-10 200 mg capsule RxNorm: 229692 1 Capsule(s) PO QD No Start Date Active lancets RxNorm: 1 Milliliter(s) Miscellaneous AC & HS No Start Robert e Active Vitamin D3 4,000 unit capsule RxNorm: 9425627 1 Capsule(s) PO QD No Start Date 07/08/2016 Inactive Fish Oil 360 mg-1,200 mg capsule RxNorm: 123456 2 Capsule(s) PO QD No Start Date 01/30/2019 Inactive hydrocodone 5 mg-acetaminophen 325 mg tablet RxNorm: 157683 1 Tablet(s) PO Q4H as needed for severe pain No Start Date 12/30/2015 Inactive Xanax 0.25 mg tablet RxNorm: 212598 1/2 Tablet(s) PO PRN for se andrea stress No Start Date 07/08/2016 Inactive lisinopril 40 mg Tab RxNorm: 297257 1 Tablet(s) PO QD No Start Date 0 05/12/2011 Inactive Fish Oil 1,000 mg capsule RxNorm: 1 Capsule(s) PO QD No Start Date 09/18/2014 Inactive naproxen 500 mg Tab RxNorm: 116485 1 Tablet(s) PO BID No Start Date 0 07/28/2011 Inactive aspirin 81 mg tablet RxNorm: 369752 1 Tablet(s) PO QD No Start Date 0 05/09/2018 Inactive Crestor 10 mg Tab RxNorm: 411515 1 Tablet(s) PO QD No Start Date 07/06 Inactive Crestor 5 mg tablet RxNorm: 651134 1 Tablet(s) PO QD No Start Date Inactive Fish Oil Oral RxNorm: Oral No Start Date 09/18/2014 Inactive Viagra 100 mg Tab RxNorm: 070777 1 Tablet(s) PO as directed No Star [...] Code Item Item Code Result Date S [facility] Location COMPREHENSIVE METABOLIC 94696 AST 24 U/L 2019 Unknown COMPREHENSIVE METABOLIC 49862 ALT 32 U/L 2019 Unknown COMPREHENSIVE METABOLIC 31046 BUN 14 mg/dL 2019 Unknown COMPREHENSIVE METABOLIC 11297 ALBUMIN 4.7 g/dL 2019 Unknown COMPREHENSIVE METABOLIC 93131 CHLORIDE 103 mmol/L 08/23 Unknown COMPREHENSIVE METABOLIC 80350 Bili Total 0.5 mg/dL 08/23 Unknown COMPREHENSIVE METABOLIC 47588 ALK PHOS 57 U/L 2019 Unknown COMPREHENSIVE METABOLIC 69515 SODIUM 140 mmol/L 08/23 Unknown COMPREHENSIVE METABOLIC 20379 CREATININE 1.20 mg/dL 08/05 Unknown COMPREHENSIVE METABOLIC 69568 CALCIUM 9.9 mg/dL 2019 Unknown COMPREHENSIVE METABOLIC 72208 POTASSIUM 4.4 mmol/L 08/23 Unknown COMPREHENSIVE METABOLIC 76093 Total Protein 6.9 g/dL Unknown COMPREHENSIVE METABOLIC 90896 Glucose 123 mg/dL 2019 Unknown COMPREHENSIVE METABOLIC 70638 Bicarbonate 25 mmol/L 08/05 Unknown COMPREHENSIVE METABOLIC 66872 AGAP 12 mmol/L 2019 Unknown GLYCOSYLATED HEMOGLOBIN TEST 51613 Hgb A1c 24742-7 6.7 % 0 05/24/2019 Unknown COMPREHENSIVE METABOLIC 42369 AST 21 U/L 02/18/ 2020 Unknown COMPREHENSIVE METABOLIC 52668 ALT 26 U/L 2019 Unknown COMPREHENSIVE METABOLIC 25381 BUN 14 mg/dL 2019 Unknown COMPREHENSIVE METABOLIC 67034 ALBUMIN 4.4 g/dL 2019 Unknown COMPREHENSIVE METABOLIC 81504 CHLORIDE 102 mmol/L 05/24 Unknown COMPREHENSIVE METABOLIC 99494 Bili Total 0.4 mg/dL 05/24 Unknown COMPREHENSIVE METABOLIC 46123 ALK PHOS 55 U/L 2019 Unknown COMPREHENSIVE METABOLIC 05651 SODIUM 139 mmol/L 05/24 Unknown COMPREHENSIVE METABOLIC 83492 CREATININE 1.28 mg/dL 05/07 Unknown COMPREHENSIVE METABOLIC 71718 CALCIUM 9.7 mg/dL 2019 Unknown COMPREHENSIVE METABOLIC 13649 POTASSIUM 4.7 mmol/L 05/24 Unknown COMPREHENSIVE METABOLIC 69676 Total Protein 6.8 g/dL Unknown COMPREHENSIVE METABOLIC 84785 Glucose 130 mg/dL 2019 Unknown COMPREHENSIVE METABOLIC 56247 Bicarbonate 29 mmol/L 05/07 Unknown COMPREHENSIVE METABOLIC 73264 AGAP 8 mmol/L 2019 Unknown MEAN GLUC [id number] Calc Mean Gluc 146 mg/dL 05/24/2019 Unkn own GFR CALC [id number] GFR Non Afr Amr 56 mL/min 05/24/2019 Unk nown GFR CALC 1016245 GFR Afr Amr >60 mL/min 05/24/2019 Unknow n MEAN GLUC [id number] Calc Mean Gluc 140 mg/dL 01/26/2019 Unkn own GLYCOSYLATED HEMOGLOBIN TEST 20192 Hgb A1c 13314-2 6.5 % 1 Unknown COMPREHENSIVE METABOLIC 10057 AST 17 U/L 2018 Unknown COMPREHENSIVE METABOLIC 94674 ALT 19 U/L 2018 Unknown COMPREHENSIVE METABOLIC 38546 BUN 19 mg/dL 2018 Unknown COMPREHENSIVE METABOLIC 78502 ALBUMIN 4.3 g/dL 2018 Unknown COMPREHENSIVE METABOLIC 24276 CHLORIDE 103 mmol/L 01/26 Unknown COMPREHENSIVE METABOLIC 56682 Bili Total 0.6 mg/dL 01/26 Unknown COMPREHENSIVE METABOLIC 61620 ALK PHOS 60 U/L 2018 Unknown COMPREHENSIVE METABOLIC 87664 SODIUM 140 mmol/L 01/26 Unknown COMPREHENSIVE METABOLIC 11310 CREATININE 1.21 mg/dL 01/05 Unknown COMPREHENSIVE METABOLIC 69466 CALCIUM 9.6 mg/dL 2018 Unknown COMPREHENSIVE METABOLIC 21203 POTASSIUM 4.5 mmol/L 01/26 Unknown COMPREHENSIVE METABOLIC 26674 Total Protein 6.7 g/dL Unknown COMPREHENSIVE METABOLIC 47755 Glucose 111 mg/dL 2018 Unknown COMPREHENSIVE METABOLIC 53485 Bicarbonate 28 mmol/L 01/05 Unknown COMPREHENSIVE METABOLIC 43142 AGAP 9 mmol/L 2018 Unknown COMPLETE BLOOD COUNT 1483773 WBC 10.7 10e9/L 019 Unknown COMPLETE BLOOD COUNT [id number] RBC 4.38 10e12/L 2018 Unknown COMPLETE BLOOD COUNT [id number] HEMOGLOBIN 13.7 g/dL 01/27/20 19 Unknown COMPLETE BLOOD COUNT 3169601 HEMATOCRIT 42.0 % 01/27/20 19 Unknown COMPLETE BLOOD COUNT [id number] MCV 95.9 fL 9 Unknown COMPLETE BLOOD COUNT [id number] MCH 31.3 pg 9 Unknown COMPLETE BLOOD COUNT 4653020 MCHC 32.6 g/dL 9 Unknown COMPLETE BLOOD COUNT [id number] PLATELET COUNT 232 10e9/L Unknown COMPLETE BLOOD COUNT 2372660 Mean Plt Volume 11.4 fL Unknown COMPLETE BLOOD COUNT [id number] Neut Auto 68.7 % 9 Unknown COMPLETE BLOOD COUNT [id number] Lymph Auto 21.2 % 01/27/20 19 Unknown COMPLETE BLOOD COUNT 1627318 Falls Auto 8.1 % 9 Unknown COMPLETE BLOOD COUNT 8641532 RDW 14.1 % 9 Unknown COMPLETE BLOOD COUNT 8642135 Eos Auto 1.8 % 9 Unknown COMPLETE BLOOD COUNT 9179987 Baso Auto 0.2 % 9 Unknown COMPLETE BLOOD COUNT [id number] Neutrophil Abs 7.35 10e9/L Unknown COMPLETE BLOOD COUNT [id number] Lymphocyte Abs 2.27 10e9/L Unknown COMPLETE BLOOD COUNT [id number] Monocyte Abs 0.87 10e9/L 01/05 Unknown COMPLETE BLOOD COUNT 8385099 Eosinophil Abs 0.19 10e9/L Unknown COMPLETE BLOOD COUNT [id number] RDW-SD 47.7 fL 9 Unknown COMPLETE BLOOD COUNT [id number] Basophil Abs 0.02 10e9/L 01/05 Unknown GFR CALC 8316310 GFR Non Afr Amr 59 mL/min 01/26/2019 Unk nown GFR CALC [id number] GFR Afr Amr >60 mL/min 01/26/2019 Unknow n LIPID GROUP 28372 Cholesterol 215 mg/dL 01/26/2019 Unkno wn LIPID GROUP 33187 Triglyceride 221 mg/dL 01/26/2019 Unkn own LIPID GROUP 88629 HDL CHOLESTEROL 41 mg/dL 01/26/2019 U nknown LIPID GROUP 78417 Chol/HDL Ratio 5.24 ratio 01/26/2019 U nknown LIPID GROUP 33770 NON-HDL Chol 174 mg/dL 01/26/2019 Unkn own LIPID GROUP 82589 LDL Cholesterol 130 mg/dL 01/26/2019 [place] [address] Glucose 104 mg/dL 09/30 [place] [address] CREATININE 1.18 mg/dL [place] [address] BUN 19 mg/dL 09/30 [place] [address] SODIUM 139 mmol/L 09/05 [place] [address] POTASSIUM 4.1 mmol/L 09/05 [place] [address] CHLORIDE 105 mmol/L 09/05 [place] [address] Bicarbonate 26 mmol/L [place] [address] AGAP 8 mmol/L 09/30 [place] [address] CALCIUM 9.3 mg/dL 09/30 Unknown GFR CALC 2665612 GFR Non Afr Amr >60 mL/min 09/30/2018 Un known GFR CALC [id number] GFR Afr Amr >60 mL/min 09/30/2018 Unknow n MICROALBUMIN URINE RANDOM 99835 U Microalbumin <2.0 mg/L 08/19/2018 Unknown MICROALBUMIN URINE RANDOM 89310 U Creatinine 66 mg/dL 0 08/19/2018 Unknown MICROALBUMIN URINE RANDOM 07731 ALB/CR Ratio <3.0 mg/gCR 08/19/2018 Unknown COMPREHENSIVE METABOLIC 48768 AST 21 U/L 2018 Unknown COMPREHENSIVE METABOLIC 69221 ALT 20 U/L 2018 Unknown COMPREHENSIVE METABOLIC 90823 BUN 31 mg/dL 2018 Unknown COMPREHENSIVE METABOLIC 79360 ALBUMIN 4.4 g/dL 2018 Unknown COMPREHENSIVE METABOLIC 51599 CHLORIDE 105 mmol/L 08/16 Unknown COMPREHENSIVE METABOLIC 14838 Bili Total 0.5 mg/dL 08/16 Unknown COMPREHENSIVE METABOLIC 15709 ALK PHOS 40 U/L 2018 Unknown COMPREHENSIVE METABOLIC 43768 SODIUM 140 mmol/L 08/16 Unknown COMPREHENSIVE METABOLIC 02201 CREATININE 1.45 mg/dL 08/04 Unknown COMPREHENSIVE METABOLIC 44759 CALCIUM 9.8 mg/dL 2018 Unknown COMPREHENSIVE METABOLIC 66935 POTASSIUM 5.1 mmol/L 08/16 Unknown COMPREHENSIVE METABOLIC 01152 Total Protein 6.9 g/dL Unknown COMPREHENSIVE METABOLIC 42361 Glucose 110 mg/dL 2018 Unknown COMPREHENSIVE METABOLIC 09195 Bicarbonate 25 mmol/L 08/04 Unknown COMPREHENSIVE METABOLIC 22469 AGAP 10 mmol/L 2018 Unknown GFR CALC 8818565 GFR Non Afr Amr 48 mL/min 08/16/2018 Unk nown GFR CALC 3175443 GFR Afr Amr 58 mL/min 08/16/2018 Unknown GLYCOSYLATED HEMOGLOBIN TEST 24810 Hgb A1c 72885-9 5.9 % 0 08/16/2018 Unknown LIPID GROUP 21358 Cholesterol 226 mg/dL 08/16/2018 Unkno wn LIPID GROUP 01889 Triglyceride 335 mg/dL 08/16/2018 Unkn own LIPID GROUP 87268 HDL CHOLESTEROL 32 mg/dL 08/16/2018 U nknown LIPID GROUP 06770 Chol/HDL Ratio 7.06 ratio 08/16/2018 U nknown LIPID GROUP 57626 NON-HDL Chol 194 mg/dL 08/16/2018 Unkn own LIPID GROUP 17943 LDL Cholesterol 127 mg/dL 08/16/2018 U nknown THYROID STIMULATING HORMONE 25364 TSH 2.475 uIU/mL 08/16/2018 Unknown COMPLETE BLOOD COUNT [id number] WBC 7.5 10e9/L 08/17/19 19 Unknown COMPLETE BLOOD COUNT [id number] RBC 4.09 10e12/L 2018 Unknown COMPLETE BLOOD COUNT [id number] HEMOGLOBIN 12.9 g/dL 08/17/19 19 Unknown COMPLETE BLOOD COUNT [id number] HEMATOCRIT 40.0 % 08/17/19 19 Unknown COMPLETE BLOOD COUNT 7204010 MCV 97.8 fL 9 Unknown COMPLETE BLOOD COUNT [id number] MCH 31.5 pg 9 Unknown COMPLETE BLOOD COUNT 7482154 MCHC 32.3 g/dL 9 Unknown COMPLETE BLOOD COUNT [id number] PLATELET COUNT 258 10e9/L Unknown COMPLETE BLOOD COUNT 0240841 Mean Plt Volume 11.4 fL Unknown COMPLETE BLOOD COUNT [id number] Neut Auto 62.9 % 9 Unknown COMPLETE BLOOD COUNT [id number] Lymph Auto 27.3 % 08/17/19 19 Unknown COMPLETE BLOOD COUNT 0860503 Falls Auto 8.2 % 9 Unknown COMPLETE BLOOD COUNT [id number] RDW 13.3 % 9 Unknown COMPLETE BLOOD COUNT [id number] Eos Auto 1.5 % 9 Unknown COMPLETE BLOOD COUNT [id number] Baso Auto 0.1 % 9 Unknown COMPLETE BLOOD COUNT [id number] Neutrophil Abs 4.72 10e9/L Unknown COMPLETE BLOOD COUNT [id number] Lymphocyte Abs 2.05 10e9/L Unknown COMPLETE BLOOD COUNT [id number] Monocyte Abs 0.62 10e9/L 08/04 Unknown COMPLETE BLOOD COUNT [id number] Eosinophil Abs 0.11 10e9/L Unknown COMPLETE BLOOD COUNT [id number] RDW-SD 46.7 fL 9 Unknown COMPLETE BLOOD COUNT [id number] Basophil Abs 0.01 10e9/L 08/04 Unknown MEAN GLUC 1953776 Calc Mean Gluc 123 mg/dL 08/16/2018 Unkn own L[facility] 25313 Cholesterol 212 mg/dL 05/05/2018 [facility] w[facility] L[facility] 77588 Triglyceride 271 mg/dL 05/05/2018 Unkn own [facility] 78604 HDL CHOLESTEROL 38 mg/dL 05/05/2018 U nknown LIPID GROUP 94401 Chol/HDL Ratio 5.58 ratio 05/05/2018 U nknown LIPID GROUP 42590 NON-HDL Chol 174 mg/dL 05/05/2018 [facility]kn own LIP[facility] GROUP 71734 LDL Cholesterol 120 mg/dL 05/05/2018 U nknown GFR CALC 0716267 GFR Non Afr Amr 49 mL/min 05/05/2018 Unk nown GFR CALC 9034675 GFR Afr Amr 59 mL/min 05/05/2018 Unknown GLYCOSYLATED HEMOGLOBIN TEST 75886 Hgb A1c 26832-3 6.0 % 0 05/05/2018 Unknown MEAN GLUC 7670260 Calc Mean Gluc 126 mg/dL 05/05/2018 Unkn own COMPREHENSIVE METABOLIC 32977 AST 18 U/L 2018 Unknown COMPREHENSIVE METABOLIC 17089 ALT 23 U/L 2018 Unknown COMPREHENSIVE METABOLIC 78690 BUN 30 mg/dL 2018 Unknown COMPREHENSIVE METABOLIC 30041 ALBUMIN 4.3 g/dL 2018 Unknown COMPREHENSIVE METABOLIC 65266 CHLORIDE 106 mmol/L 05/05 Unknown COMPREHENSIVE METABOLIC 70365 Bili Total 0.4 mg/dL 05/05 Unknown COMPREHENSIVE METABOLIC 66655 ALK PHOS 39 U/L 2018 Unknown COMPREHENSIVE METABOLIC 42442 SODIUM 139 mmol/L 05/05 Unknown COMPREHENSIVE METABOLIC 58264 CREATININE 1.44 mg/dL 04/08 Unknown COMPREHENSIVE METABOLIC 29963 CALCIUM 9.6 mg/dL 2018 Unknown COMPREHENSIVE METABOLIC 36626 POTASSIUM 4.7 mmol/L 05/05 Unknown COMPREHENSIVE METABOLIC 54088 Total Protein 6.6 g/dL Unknown COMPREHENSIVE METABOLIC 77122 Glucose 112 mg/dL 2018 Unknown COMPREHENSIVE METABOLIC 61513 Bicarbonate 28 mmol/L 04/08 Unknown COMPREHENSIVE METABOLIC 11029 AGAP 5 mmol/L 2018 Unknown THYROID STIMULATING HORMONE 35105 TSH 3.725 uIU/mL 05/05/2018 Unknown COMPLETE BLOOD COUNT 1307737 WBC 8.2 10e9/L 05/05/19 19 Unknown COMPLETE BLOOD COUNT [id number] RBC 4.02 10e12/L 2018 Unknown COMPLETE BLOOD COUNT 8372943 HEMOGLOBIN 12.7 g/dL 05/05/19 19 Unknown COMPLETE BLOOD COUNT [id number] HEMATOCRIT 39.3 % 05/05/19 19 Unknown COMPLETE BLOOD COUNT 1795403 MCV 97.8 fL 9 Unknown COMPLETE BLOOD COUNT 8977776 MCH 31.6 pg 9 Unknown COMPLETE BLOOD COUNT 2871770 MCHC 32.3 g/dL 9 Unknown COMPLETE BLOOD COUNT [id number] PLATELET COUNT 213 10e9/L Unknown COMPLETE BLOOD COUNT 0303436 Mean Plt Volume 11.7 fL Unknown COMPLETE BLOOD COUNT 9387790 Neut Auto 55.7 % 9 Unknown COMPLETE BLOOD COUNT [id number] Lymph Auto 33.2 % 05/05/19 19 Unknown COMPLETE BLOOD COUNT 2740833 [place] Auto 8.5 % 9 Unknown COMPLETE BLOOD COUNT 4236640 RDW 13.9 % 9 Unknown COMPLETE BLOOD COUNT 8960523 Eos Auto 2.4 % 9 Unknown COMPLETE BLOOD COUNT 9030853 Baso Auto 0.2 % 9 Unknown COMPLETE BLOOD COUNT 7275828 Neutrophil Abs 4.57 10e9/L Unknown COMPLETE BLOOD COUNT 6709382 Lymphocyte Abs 2.72 10e9/L Unknown COMPLETE BLOOD COUNT [id number] Monocyte Abs 0.70 10e9/L 04/08 Unknown COMPLETE BLOOD COUNT [id number] Eosinophil Abs 0.20 10e9/L Unknown COMPLETE BLOOD COUNT 9358344 RDW-SD 48.8 fL 9 Unknown COMPLETE BLOOD COUNT [id number] Basophil Abs 0.02 10e9/L 04/08 Unknown MICROALBUMIN URINE RANDOM 17067 U Microalbumin 19.3 mg/L 01/19/2018 Unknown MICROALBUMIN URINE RANDOM 16252 U Creatinine 96 mg/dL 1 Unknown MICROALBUMIN URINE RANDOM 58636 ALB/CR Ratio 20.1 mg/gCR 01/19/2018 Unknown LIPID GROUP 14233 Cholesterol 173 mg/dL 01/13/2018 [facility] 23942 Triglyceride 386 mg/dL 01/13/2018 [facility] own L[facility] 33896 HDL CHOLESTEROL 37 mg/dL 01/13/2018 U nknown LIPID GROUP 70366 Chol/HDL Ratio 4.68 ratio 01/13/2018 U nknown LIPID GROUP 78100 NON-HDL Chol 136 mg/dL 01/13/2018 [facility] own [facility] 40760 LDL Cholesterol 59 mg/dL 01/13/2018 U nknown COMPLETE BLOOD COUNT [id number] WBC TNP:Client Request 01/13/2018 Unknown COMPLETE BLOOD COUNT [id number] RBC TNP:Client Request 01/13/2018 Unknown COMPLETE BLOOD COUNT [id number] HEMOGLOBIN TNP:Client Request 01/13/2018 Unknown COMPLETE BLOOD COUNT [id number] HEMATOCRIT TNP:Client Request 01/13/2018 Unknown COMPLETE BLOOD COUNT 9708155 MCV TNP:Client Request 01/13/2018 Unknown COMPLETE BLOOD COUNT [id number] MCH TNP:Client Request 01/13/2018 Unknown COMPLETE BLOOD COUNT 9323000 MCHC TNP:Client Request 01/13/2018 Unknown COMPLETE BLOOD COUNT 9942576 PLATELET COUNT TNP:Client Req uest 01/13/2018 Unknown COMPLETE BLOOD COUNT 2901421 Mean Plt Volume TNP:Client Re quest 01/13/2018 Unknown COMPLETE BLOOD COUNT [id number] Neut Auto TNP:Client Request 01/13/2018 Unknown COMPLETE BLOOD COUNT [id number] Lymph Auto TNP:Client Request 01/13/2018 Unknown COMPLETE BLOOD COUNT [id number] Falls Auto TNP:Client Request 01/13/2018 Unknown COMPLETE BLOOD COUNT 1711531 RDW TNP:Client Request 01/13/2018 Unknown COMPLETE BLOOD COUNT 7784916 Eos Auto TNP:Client Request 01/13/2018 Unknown COMPLETE BLOOD COUNT [id number] Baso Auto TNP:Client Request 01/13/2018 Unknown COMPLETE BLOOD COUNT [id number] Neutrophil Abs TNP:Client Req uest 01/13/2018 Unknown COMPLETE BLOOD COUNT [id number] Lymphocyte Abs TNP:Client Req uest 01/13/2018 Unknown COMPLETE BLOOD COUNT [id number] Monocyte Abs TNP:Client Reque st 01/13/2018 Unknown COMPLETE BLOOD COUNT 1074797 Eosinophil Abs TNP:Client Req uest 01/13/2018 Unknown COMPLETE BLOOD COUNT [id number] RDW-SD TNP:Client Request 01/13/2018 Unknown COMPLETE BLOOD COUNT [id number] Basophil Abs TNP:Client Reque st 01/13/2018 Unknown GLYCOSYLATED HEMOGLOBIN TEST 67375 Hgb A1c 27496-1 6.2 % 1 Unknown THYROID STIMULATING HORMONE 38654 TSH 2.764 uIU/mL 01/13/2018 Unknown COMPREHENSIVE METABOLIC 83067 AST 19 U/L 2017 Unknown COMPREHENSIVE METABOLIC 89886 ALT 21 U/L 2017 Unknown COMPREHENSIVE METABOLIC 43292 BUN 16 mg/dL 2017 Unknown COMPREHENSIVE METABOLIC 56410 ALBUMIN 4.2 g/dL 2017 Unknown COMPREHENSIVE METABOLIC 87462 CHLORIDE 105 mmol/L 01/13 Unknown COMPREHENSIVE METABOLIC 69739 Bili Total 0.5 mg/dL 01/13 Unknown COMPREHENSIVE METABOLIC 35369 ALK PHOS 85 U/L 2017 Unknown COMPREHENSIVE METABOLIC 37095 SODIUM 139 mmol/L 01/13 Unknown COMPREHENSIVE METABOLIC 51310 CREATININE 1.07 mg/dL 01/04 Unknown COMPREHENSIVE METABOLIC 30989 CALCIUM 9.2 mg/dL 2017 Unknown COMPREHENSIVE METABOLIC 37476 POTASSIUM 4.4 mmol/L 01/13 Unknown COMPREHENSIVE METABOLIC 11259 Total Protein 7.7 g/dL Unknown COMPREHENSIVE METABOLIC 03359 Glucose 130 mg/dL 2017 Unknown COMPREHENSIVE METABOLIC 75919 Bicarbonate 27 mmol/L 01/04 Unknown COMPREHENSIVE METABOLIC 21855 AGAP 7 mmol/L 2017 Unknown PSA EQUIMOLAR JERSON 12920 PSA Total 1.16 ng/mL 8 Unknown MEAN GLUC 0159281 Calc Mean Gluc 131 mg/dL 01/13/2018 Unkn own GFR CALC 1767572 GFR Non Afr Amr >60 mL/min 01/13/2018 Un known GFR CALC 2155980 GFR Afr Amr >60 mL/min 01/13/2018 Unknow n MEAN GLUC 8012116 Calc Mean Gluc 134 mg/dL 10/06/2017 Unkn own GFR CALC 0963815 GFR Non Afr Amr >60 mL/min 10/06/2017 Un known GFR CALC 2455389 GFR Afr Amr >60 mL/min 10/06/2017 Unknow n GLYCOSYLATED HEMOGLOBIN TEST 72155 Hgb A1c 78604-3 6.3 % 0 10/06/2017 Unknown VITAMIN B 12 59959 VITAMIN B12 1202 pg/mL 10/06/2017 Unk nown COMPLETE BLOOD COUNT [id number] WBC 7.4 10e9/L 10/07/19 18 Unknown COMPLETE BLOOD COUNT 9056313 RBC 4.24 10e12/L 2017 Unknown COMPLETE BLOOD COUNT [id number] HEMOGLOBIN 13.5 g/dL 10/07/19 18 Unknown COMPLETE BLOOD COUNT 4956340 HEMATOCRIT 41.6 % 10/07/19 18 Unknown COMPLETE BLOOD COUNT 2828451 MCV 98.1 fL 8 Unknown COMPLETE BLOOD COUNT 4951429 MCH 31.8 pg 8 Unknown COMPLETE BLOOD COUNT 3023678 MCHC 32.5 g/dL 8 Unknown COMPLETE BLOOD COUNT 6121366 PLATELET COUNT 223 10e9/L 06/2017 Unknown COMPLETE BLOOD COUNT 8151922 Mean Plt Volume 11.9 fL 06/2017 Unknown COMPLETE BLOOD COUNT 3020790 Neut Auto 58.0 % 8 Unknown COMPLETE BLOOD COUNT 9879054 Lymph Auto 29.7 % 10/07/19 18 Unknown COMPLETE BLOOD COUNT 2010607 [place] Auto 8.3 % 8 Unknown COMPLETE BLOOD COUNT 9479017 RDW 14.0 % 8 Unknown COMPLETE BLOOD COUNT 0814952 Eos Auto 3.7 % 8 Unknown COMPLETE BLOOD COUNT 2149486 Baso Auto 0.3 % 8 Unknown COMPLETE BLOOD COUNT 2201169 Neutrophil Abs 4.29 10e9/L Unknown COMPLETE BLOOD COUNT 1541947 Lymphocyte Abs 2.20 10e9/L Unknown COMPLETE BLOOD COUNT 5267056 Monocyte Abs 0.61 10e9/L 06/2017 Unknown COMPLETE BLOOD COUNT 2899657 Eosinophil Abs 0.27 10e9/L Unknown COMPLETE BLOOD COUNT 5625877 RDW-SD 48.6 fL 8 Unknown COMPLETE BLOOD COUNT [id number] Basophil Abs 0.02 10e9/L 06/2017 Unknown LIPID GROUP 42821 Cholesterol 216 mg/dL 10/06/2017 [facility] wn LIP[facility] GROUP 96967 Triglyceride 335 mg/dL 10/06/2017 Unkn own LIP[facility] GROUP 30457 HDL CHOLESTEROL 33 mg/dL 10/06/2017 U nknown LIPID GROUP 47903 Chol/HDL Ratio 6.55 ratio 10/06/2017 U nknown LIPID GROUP 20083 NON-HDL Chol 183 mg/dL 10/06/2017 Unkn own LIP[facility] GROUP 49810 LDL Cholesterol 116 mg/dL 10/06/2017 U nknown COMPREHENSIVE METABOLIC 70710 AST 15 U/L 2017 Unknown COMPREHENSIVE METABOLIC 37388 ALT 15 U/L 2017 Unknown COMPREHENSIVE METABOLIC 48974 BUN 21 mg/dL 2017 Unknown COMPREHENSIVE METABOLIC 54748 ALBUMIN 4.1 g/dL 2017 Unknown COMPREHENSIVE METABOLIC 32941 CHLORIDE 107 mmol/L 10/06 Unknown COMPREHENSIVE METABOLIC 19941 Bili Total 0.6 mg/dL 10/06 Unknown COMPREHENSIVE METABOLIC 46960 ALK PHOS 68 U/L 2017 Unknown COMPREHENSIVE METABOLIC 09280 SODIUM 140 mmol/L 10/06 Unknown COMPREHENSIVE METABOLIC 80552 CREATININE 1.12 mg/dL 06/2017 Unknown COMPREHENSIVE METABOLIC 41383 CALCIUM 9.7 mg/dL 2017 Unknown COMPREHENSIVE METABOLIC 86960 POTASSIUM 4.6 mmol/L 10/06 Unknown COMPREHENSIVE METABOLIC 52224 Total Protein 6.6 g/dL Unknown COMPREHENSIVE METABOLIC 86660 Glucose 114 mg/dL 2017 Unknown COMPREHENSIVE METABOLIC 38065 Bicarbonate 26 mmol/L 06/2017 Unknown COMPREHENSIVE METABOLIC 08201 AGAP 7 mmol/L 2017 Unknown GLYCOSYLATED HEMOGLOBIN TEST 80892 Hgb A1c 16090-6 6.1 % 1 05/05/2016 Unknown GFR CALC 5336997 GFR Non Afr Amr >60 mL/min 03/05/2017 Un known GFR CALC 4259158 GFR Afr Amr >60 mL/min 03/05/2017 Unknow n MEAN GLUC 7350187 Calc Mean Gluc 128 mg/dL 03/05/2017 Unkn own COMPREHENSIVE METABOLIC 36764 AST 18 U/L 2016 Unknown COMPREHENSIVE METABOLIC 00863 ALT 20 U/L 2016 Unknown COMPREHENSIVE METABOLIC 48181 BUN 15 mg/dL 2016 Unknown COMPREHENSIVE METABOLIC 01270 ALBUMIN 4.3 g/dL 2016 Unknown COMPREHENSIVE METABOLIC 77648 CHLORIDE 105 mmol/L 03/05 Unknown COMPREHENSIVE METABOLIC 36558 Bili Total 0.5 mg/dL 03/05 Unknown COMPREHENSIVE METABOLIC 54702 ALK PHOS 57 U/L 2016 Unknown COMPREHENSIVE METABOLIC 11984 SODIUM 141 mmol/L 03/05 Unknown COMPREHENSIVE METABOLIC 19929 CREATININE 1.07 mg/dL 02/06 Unknown COMPREHENSIVE METABOLIC 26657 CALCIUM 9.3 mg/dL 2016 Unknown COMPREHENSIVE METABOLIC 14494 POTASSIUM 4.8 mmol/L 03/05 Unknown COMPREHENSIVE METABOLIC 99121 Total Protein 6.2 g/dL Unknown COMPREHENSIVE METABOLIC 18538 Glucose 118 mg/dL 2016 Unknown COMPREHENSIVE METABOLIC 34933 Bicarbonate 29 mmol/L 02/06 Unknown COMPREHENSIVE METABOLIC 61152 AGAP 7 mmol/L 2016 Unknown FREE T4 27737 T4 Free 1.38 ng/dL 03/05/2017 Unknown COMPLETE BLOOD COUNT 7693294 WBC 8.4 10e9/L 03/05/20 17 Unknown COMPLETE BLOOD COUNT [id number] RBC 4.11 10e12/L 2016 Unknown COMPLETE BLOOD COUNT 6266237 HEMOGLOBIN 12.8 g/dL 11/30/20 17 Unknown COMPLETE BLOOD COUNT 6754982 HEMATOCRIT 40.1 % 03/05/20 17 Unknown COMPLETE BLOOD COUNT 9490413 MCV 97.6 fL 7 Unknown COMPLETE BLOOD COUNT 5055890 MCH 31.1 pg 7 Unknown COMPLETE BLOOD COUNT 3435827 MCHC 31.9 g/dL 7 Unknown COMPLETE BLOOD COUNT 8911527 PLATELET COUNT 184 10e9/L Unknown COMPLETE BLOOD COUNT 4727909 Mean Plt Volume 11.3 fL Unknown COMPLETE BLOOD COUNT 8592327 Neut Auto 62.5 % 7 Unknown COMPLETE BLOOD COUNT 7046001 Lymph Auto 26.4 % 03/05/20 17 Unknown COMPLETE BLOOD COUNT [id number] [place] Auto 7.9 % 7 Unknown COMPLETE BLOOD COUNT 0940797 RDW 13.5 % 7 Unknown COMPLETE BLOOD COUNT 2989565 Eos Auto 3.0 % 7 Unknown COMPLETE BLOOD COUNT 0734484 Baso Auto 0.2 % 7 Unknown COMPLETE BLOOD COUNT 3878008 Neutrophil Abs 5.25 10e9/L Unknown COMPLETE BLOOD COUNT [id number] Lymphocyte Abs 2.22 10e9/L Unknown COMPLETE BLOOD COUNT [id number] Monocyte Abs 0.66 10e9/L 02/06 Unknown COMPLETE BLOOD COUNT 9569148 Eosinophil Abs 0.25 10e9/L Unknown COMPLETE BLOOD COUNT 2376895 RDW-SD 46.7 fL 7 Unknown COMPLETE BLOOD COUNT 9985255 Basophil Abs 0.02 10e9/L 02/06 Unknown THYROID STIMULATING HORMONE 61764 TSH 2.330 uIU/mL 03/05/2017 Unknown LIPID GROUP 76596 Cholesterol 135 mg/dL 03/05/2017 Unkno wn LIPID GROUP 99759 Triglyceride 297 mg/dL 03/05/2017 Unkn own LIPID GROUP 67046 HDL CHOLESTEROL 34 mg/dL 03/05/2017 U nknown LIPID GROUP 78722 Chol/HDL Ratio 3.97 ratio 03/05/2017 U nknown LIPID GROUP 48542 NON-HDL Chol 101 mg/dL 03/05/2017 Unkn own LIPID GROUP 18464 LDL Cholesterol 42 mg/dL 03/05/2017 U nknown GLYCOSYLATED HEMOGLOBIN TEST 99964 Hgb A1c 85831-6 6.5 % 1 05/07/2015 Unknown GFR CALC 0444066 GFR Non Afr Amr 55 mL/min 03/06/2016 Unk nown GFR CALC 6079139 GFR Afr Amr >60 mL/min 03/06/2016 Unknow n COMPLETE BLOOD COUNT 4265127 WBC 8.5 10e9/L 03/06/20 16 Unknown COMPLETE BLOOD COUNT [id number] RBC 4.32 10e12/L 2015 Unknown COMPLETE BLOOD COUNT 3335542 HEMOGLOBIN 13.5 g/dL 03/06/20 16 Unknown COMPLETE BLOOD COUNT 3765002 HEMATOCRIT 41.3 % 03/06/20 16 Unknown COMPLETE BLOOD COUNT 7306196 MCV 95.6 fL 6 Unknown COMPLETE BLOOD COUNT 7149108 MCH 31.3 pg 6 Unknown COMPLETE BLOOD COUNT 6024855 MCHC 32.7 g/dL 6 Unknown COMPLETE BLOOD COUNT 9937764 PLATELET COUNT 191 10e9/L 04/2015 Unknown COMPLETE BLOOD COUNT 6782861 Mean Plt Volume 11.7 fL 04/2015 Unknown COMPLETE BLOOD COUNT 1821337 Neut Auto 64.2 % 6 Unknown COMPLETE BLOOD COUNT 8944955 Lymph Auto 25.9 % 03/06/20 16 Unknown COMPLETE BLOOD COUNT 1231365 [place] Auto 7.8 % 6 Unknown COMPLETE BLOOD COUNT 7850391 RDW 13.4 % 6 Unknown COMPLETE BLOOD COUNT 5153261 Eos Auto 2.0 % 6 Unknown COMPLETE BLOOD COUNT 7239527 Baso Auto 0.1 % 6 Unknown COMPLETE BLOOD COUNT 2248733 Neutrophil Abs 5.46 10e9/L Unknown COMPLETE BLOOD COUNT 7214254 Lymphocyte Abs 2.20 10e9/L Unknown COMPLETE BLOOD COUNT [id number] Monocyte Abs 0.66 10e9/L 04/2015 Unknown COMPLETE BLOOD COUNT 0328617 Eosinophil Abs 0.17 10e9/L Unknown COMPLETE BLOOD COUNT 9988606 RDW-SD 45.0 fL 6 Unknown COMPLETE BLOOD COUNT [id number] Basophil Abs 0.01 10e9/L 04/2015 Unknown FREE T4 40821 T4 Free 1.34 ng/dL 03/06/2016 Unknown MEAN GLUC 6419237 Calc Mean Gluc 140 mg/dL 03/06/2016 Unkn own COMPREHENSIVE METABOLIC 53348 AST 15 U/L 2015 Unknown COMPREHENSIVE METABOLIC 22355 ALT 18 U/L 2015 Unknown COMPREHENSIVE METABOLIC 27587 BUN 21 mg/dL 2015 Unknown COMPREHENSIVE METABOLIC 50946 ALBUMIN 4.3 g/dL 2015 Unknown COMPREHENSIVE METABOLIC 00622 CHLORIDE 103 mmol/L 03/06 Unknown COMPREHENSIVE METABOLIC 12404 Bili Total 0.4 mg/dL 03/06 Unknown COMPREHENSIVE METABOLIC 04905 ALK PHOS 68 U/L 2015 Unknown COMPREHENSIVE METABOLIC 88501 SODIUM 140 mmol/L 03/06 Unknown COMPREHENSIVE METABOLIC 75416 CREATININE 1.31 mg/dL 04/2015 Unknown COMPREHENSIVE METABOLIC 15154 CALCIUM 9.4 mg/dL 2015 Unknown COMPREHENSIVE METABOLIC 72900 POTASSIUM 4.8 mmol/L 03/06 Unknown COMPREHENSIVE METABOLIC 97433 Total Protein 6.6 g/dL Unknown COMPREHENSIVE METABOLIC 72998 Glucose 142 mg/dL 2015 Unknown COMPREHENSIVE METABOLIC 16543 Bicarbonate 29 mmol/L 04/2015 Unknown COMPREHENSIVE METABOLIC 03309 AGAP 8 mmol/L 2015 Unknown THYROID STIMULATING HORMONE 64134 TSH 2.288 uIU/mL 03/06/2016 Unknown LIPID GROUP 30530 Cholesterol 154 mg/dL 03/06/2016 Unkno wn LIPID GROUP 10601 Triglyceride 266 mg/dL 03/06/2016 Unkn own LIPID GROUP 94578 HDL CHOLESTEROL 38 mg/dL 03/06/2016 U nknown LIPID GROUP 55286 Chol/HDL Ratio 4.05 ratio 03/06/2016 U nknown LIPID GROUP 53430 NON-HDL Chol 116 mg/dL 03/06/2016 Unkn own LIPID GROUP 92671 LDL Cholesterol 63 mg/dL 03/06/2016 U nknown MEAN GLUC Mean Glucose 128 mg/dL 08/31/2015 Unknow n COMPLETE BLOOD COUNT 0538501 WBC 8.4 10e9/L 08/31/19 16 Unknown COMPLETE BLOOD COUNT 6645171 RBC 4.12 10e12/L 2015 Unknown COMPLETE BLOOD COUNT 5174424 HEMOGLOBIN 12.8 g/dL 08/31/19 16 Unknown COMPLETE BLOOD COUNT 8954004 HEMATOCRIT 39.6 % 08/31/19 16 Unknown COMPLETE BLOOD COUNT 4614225 MCV 96.1 fL 6 Unknown COMPLETE BLOOD COUNT 5405420 MCH 31.1 pg 6 Unknown COMPLETE BLOOD COUNT 5630555 MCHC 32.3 g/dL 6 Unknown COMPLETE BLOOD COUNT 4877393 PLATELET COUNT 184 10e9/L Unknown COMPLETE BLOOD COUNT 9582041 Mean Plt Volume 12.0 fL Unknown COMPLETE BLOOD COUNT 3433038 Neut Auto 59.8 % 6 Unknown COMPLETE BLOOD COUNT 4401466 Lymph Auto 27.9 % 08/31/19 16 Unknown COMPLETE BLOOD COUNT [id number] [place] Auto 9.1 % 6 Unknown COMPLETE BLOOD COUNT 1491592 RDW 13.6 % 6 Unknown COMPLETE BLOOD COUNT 6986391 Eos Auto 3.1 % 6 Unknown COMPLETE BLOOD COUNT 0766726 Baso Auto 0.1 % 6 Unknown COMPLETE BLOOD COUNT 7106317 Neutrophil Abs 5.02 10e9/L Unknown COMPLETE BLOOD COUNT [id number] Lymphoctye Abs 2.34 10e9/L Unknown COMPLETE BLOOD COUNT 1124395 Monocyte Abs 0.76 10e9/L 08/05 Unknown COMPLETE BLOOD COUNT 5607739 Eosinophil Abs 0.26 10e9/L Unknown COMPLETE BLOOD COUNT 7882890 RDW-SD 46.3 fL 6 Unknown COMPLETE BLOOD COUNT 1524569 Basophil Abs 0.01 10e9/L 08/05 Unknown GLYCOSYLATED HEMOGLOBIN TEST 12295 Hgb A1c 92983-9 6.1 % 0 08/31/2015 Unknown GFR CALC 7972143 GFR Non Afr Amr >60 mL/min 08/31/2015 Un known GFR CALC 9336677 GFR Afr Amr >60 mL/min 08/31/2015 Unknow n FREE T4 46517 T4 Free 1.21 ng/dL 08/31/2015 Unknown THYROID STIMULATING HORMONE 29732 TSH 2.988 uIU/mL 08/31/2015 Unknown COMPREHENSIVE METABOLIC 54483 AST 16 U/L 2015 Unknown COMPREHENSIVE METABOLIC 01787 ALT 19 U/L 2015 Unknown COMPREHENSIVE METABOLIC 18229 BUN 17 mg/dL 2015 Unknown COMPREHENSIVE METABOLIC 17336 ALBUMIN 4.3 g/dL 2015 Unknown COMPREHENSIVE METABOLIC 73114 CHLORIDE 107 mmol/L 08/30 Unknown COMPREHENSIVE METABOLIC 50833 Bili Total 0.4 mg/dL 08/30 Unknown COMPREHENSIVE METABOLIC 47567 ALK PHOS 66 U/L 2015 Unknown COMPREHENSIVE METABOLIC 08082 SODIUM 140 mmol/L 08/30 Unknown COMPREHENSIVE METABOLIC 27871 CREATININE 1.07 mg/dL 08/05 Unknown COMPREHENSIVE METABOLIC 97695 CALCIUM 9.5 mg/dL 2015 Unknown COMPREHENSIVE METABOLIC 46461 POTASSIUM 4.5 mmol/L 08/30 Unknown COMPREHENSIVE METABOLIC 45915 Total Protein 6.7 g/dL Unknown COMPREHENSIVE METABOLIC 06139 Glucose 122 mg/dL 2015 Unknown COMPREHENSIVE METABOLIC 80974 Bicarbonate 26 mmol/L 08/05 Unknown COMPREHENSIVE METABOLIC 13915 AGAP 7 mmol/L 2015 Unknown LIPID GROUP 72215 Cholesterol 171 mg/dL 08/31/2015 Unkno wn LIPID GROUP 87229 Triglyceride 428 mg/dL 08/31/2015 Unkn own LIPID GROUP 65037 HDL CHOLESTEROL 35 mg/dL 08/31/2015 U nknown LIPID GROUP 47210 Chol/HDL Ratio 4.89 ratio 08/31/2015 U nknown LIPID GROUP 90505 NON-HDL Chol 136 mg/dL 08/31/2015 Unkn own LIPID GROUP 34050 LDL Cholesterol 50 mg/dL 08/31/2015 U nknown PSA EQUIMOLAR JERSON 95097 PSA Total 0.47 ng/mL 6 Unknown GFR CALC 4118782 GFR AA >60 ML/MIN 01/12/2015 Unknown GFR CALC 8230894 GFR NON-AA >60 ML/MIN 01/12/2015 Unknown COMPREHENSIVE METABOLIC 16442 AST 18 U/L 2014 Unknown COMPREHENSIVE METABOLIC 42511 ALT 19 IU/L 2014 Unknown COMPREHENSIVE METABOLIC 05781 BUN 19 MG/DL 2014 Unknown COMPREHENSIVE METABOLIC 27847 ALBUMIN 4.7 GM/DL 2014 Unknown COMPREHENSIVE METABOLIC 78106 CHLORIDE 104 MMOL/L 01/12 Unknown COMPREHENSIVE METABOLIC 24360 BILI TOT 0.8 MG/DL 2014 Unknown COMPREHENSIVE METABOLIC 84283 ALK PHOS 58 U/L 2014 Unknown COMPREHENSIVE METABOLIC 75060 SODIUM 139 MMOL/L 01/12 Unknown COMPREHENSIVE METABOLIC 95836 CREATININE 1.09 MG/DL 12/2014 Unknown COMPREHENSIVE METABOLIC 58394 CALCIUM 9.6 MG/DL 2014 Unknown COMPREHENSIVE METABOLIC 68358 POTASSIUM 4.4 MMOL/L 01/12 Unknown COMPREHENSIVE METABOLIC 24621 PROT TOT 6.7 GM/DL 2014 Unknown COMPREHENSIVE METABOLIC 43619 Glucose 109 MG/DL 2014 Unknown COMPREHENSIVE METABOLIC 76296 BICARB 27 MMOL/L 2014 Unknown COMPREHENSIVE METABOLIC 54279 ANION GAP 8 MEQ/L 2014 Unknown LIPID GROUP 45102 HDL TEST 36 MG/DL 01/12/2015 Unknown LIPID GROUP 18779 TRIG 220 MG/DL 01/12/2015 Unknown LIPID GROUP 71213 TEST LDL 58 MG/DL 01/12/2015 Unknown LIPID GROUP 46000 CHOL 138 MG/DL 01/12/2015 Unknown LIPID GROUP 17163 RCHOL/HDL 3.83 RATIO 01/12/2015 Unknow n LIPID GROUP 22500 NON-HDL CH 102 MG/DL 01/12/2015 Unknow n GLYCOSYLATED HEMOGLOBIN TEST 75469 A1C HPLC 55539-2 6.1 % 1 Unknown COMPLETE BLOOD COUNT 2376259 WBC 7.1 10e9/L 01/13/20 15 Unknown COMPLETE BLOOD COUNT 4337472 RBC 4.38 10e12/L 2014 Unknown COMPLETE BLOOD COUNT 8332740 HGB 13.7 g/dL 5 Unknown COMPLETE BLOOD COUNT 9265800 HCT DET 41.3 % 5 Unknown COMPLETE BLOOD COUNT 3182677 MCV 94.3 fL 5 Unknown COMPLETE BLOOD COUNT 9675061 MCH 31.3 pg 5 Unknown COMPLETE BLOOD COUNT 6760801 MCHC 33.2 g/dL 5 Unknown COMPLETE BLOOD COUNT 4459273 PLT 174 10e9/L 01/13/20 15 Unknown COMPLETE BLOOD COUNT 8588190 MPV 11.8 fL 5 Unknown COMPLETE BLOOD COUNT 6172041 SAMIR % 61.3 % 5 Unknown COMPLETE BLOOD COUNT 9127973 LY % 28.3 % 5 Unknown COMPLETE BLOOD COUNT 3891898 MON % 7.6 % 5 Unknown COMPLETE BLOOD COUNT 8996363 EOS % 2.7 % 5 Unknown COMPLETE BLOOD COUNT 0535291 BASO % 0.1 % 5 Unknown COMPLETE BLOOD COUNT 8401171 RDW 13.1 % 5 Unknown COMPLETE BLOOD COUNT 5659864 ABS SAMIR 4.35 10e9/L 015 Unknown COMPLETE BLOOD COUNT 7110982 ABS LYMPH 2.01 10e9/L 015 Unknown COMPLETE BLOOD COUNT 6097281 ABS MONO 0.54 10e9/L 015 Unknown COMPLETE BLOOD COUNT 5459516 ABS EOS 0.19 10e9/L 015 Unknown COMPLETE BLOOD COUNT 4329686 ABS BASO 0.01 10e9/L 015 Unknown COMPLETE BLOOD COUNT 1719931 RDW-SD 43.9 fL 5 Unknown GLYCOSYLATED HEMOGLOBIN TEST 43221 A1C HPLC 84219-6 6.1 % 0 08/15/2014 Unknown COMPLETE BLOOD COUNT [id number] WBC 9.7 10e9/L 08/16/19 15 Unknown COMPLETE BLOOD COUNT 9981366 RBC 4.29 10e12/L 2014 Unknown COMPLETE BLOOD COUNT 0029797 HGB 13.3 g/dL 5 Unknown COMPLETE BLOOD COUNT 7566969 HCT DET 40.5 % 5 Unknown COMPLETE BLOOD COUNT 4014346 MCV 94.4 fL 5 Unknown COMPLETE BLOOD COUNT 8846916 MCH 31.0 pg 5 Unknown COMPLETE BLOOD COUNT 9489032 MCHC 32.8 g/dL 5 Unknown COMPLETE BLOOD COUNT 0639626 PLT 227 10e9/L 08/16/19 15 Unknown COMPLETE BLOOD COUNT 8698746 MPV 11.0 fL 5 Unknown COMPLETE BLOOD COUNT 6971121 SAMIR % 66.4 % 5 Unknown COMPLETE BLOOD COUNT 9412814 LY % 23.7 % 5 Unknown COMPLETE BLOOD COUNT 5856728 MON % 8.1 % 5 Unknown COMPLETE BLOOD COUNT [id number] EOS % 1.6 % 5 Unknown COMPLETE BLOOD COUNT [id number] BASO % 0.2 % 5 Unknown COMPLETE BLOOD COUNT [id number] RDW 13.4 % 5 Unknown COMPLETE BLOOD COUNT [id number] ABS SAMIR 6.44 10e9/L 015 Unknown COMPLETE BLOOD COUNT [id number] ABS LYMPH 2.30 10e9/L 015 Unknown COMPLETE BLOOD COUNT [id number] ABS MONO 0.79 10e9/L 015 Unknown COMPLETE BLOOD COUNT [id number] ABS EOS 0.16 10e9/L 015 Unknown COMPLETE BLOOD COUNT [id number] ABS BASO 0.02 10e9/L 015 Unknown COMPLETE BLOOD COUNT [id number] RDW-SD 44.7 fL 5 Unknown COMPREHENSIVE METABOLIC 35303 AST 17 U/L 2014 Unknown COMPREHENSIVE METABOLIC 68523 ALT 23 IU/L 2014 Unknown COMPREHENSIVE METABOLIC 25294 BUN 16 MG/DL 2014 Unknown COMPREHENSIVE METABOLIC 53359 ALBUMIN 4.3 GM/DL 2014 Unknown COMPREHENSIVE METABOLIC 57243 CHLORIDE 107 MMOL/L 08/15 Unknown COMPREHENSIVE METABOLIC 88714 BILI TOT 0.4 MG/DL 2014 Unknown COMPREHENSIVE METABOLIC 59538 ALK PHOS 91 U/L 2014 Unknown COMPREHENSIVE METABOLIC 87828 SODIUM 139 MMOL/L 08/15 Unknown COMPREHENSIVE METABOLIC 22812 CREATININE 1.07 MG/DL 08/04 Unknown COMPREHENSIVE METABOLIC 37444 CALCIUM 9.6 MG/DL 2014 Unknown COMPREHENSIVE METABOLIC 81771 POTASSIUM 4.6 MMOL/L 08/15 Unknown COMPREHENSIVE METABOLIC 88442 PROT TOT 6.7 GM/DL 2014 Unknown COMPREHENSIVE METABOLIC 35109 Glucose 111 MG/DL 2014 Unknown COMPREHENSIVE METABOLIC 96531 BICARB 27 MMOL/L 2014 Unknown COMPREHENSIVE METABOLIC 88648 ANION GAP 5 MEQ/L 2014 Unknown GFR CALC [id number] GFR AA >60 ML/MIN 08/15/2014 Unknown GFR CALC [id number] GFR NON-AA >60 ML/MIN 08/15/2014 Unknown THYROID STIMULATING HORMONE 21080 TSH 1.598 uIU/ML 08/15/2014 Unknown LIPID GROUP 39813 HDL TEST 33 MG/DL 08/15/2014 Unknown LIPID GROUP 67334 TRIG 187 MG/DL 08/15/2014 Unknown LIPID GROUP 00503 TEST LDL 58 MG/DL 08/15/2014 Unknown LIPID GROUP 81093 CHOL 128 MG/DL 08/15/2014 Unknown LIPID GROUP 77950 RCHOL/HDL 3.88 RATIO 08/15/2014 Unknow n LIPID GROUP 41707 NON-HDL CH 95 MG/DL 08/15/2014 Unknow n PSA [facility] [address] PSA EQ 0.70 NG/ML 5 Unknown FREE T4 62920 FREE T4 1.32 NG/DL 08/15/2014 Unknown GFR CALC [id number] GFR AA >60 ML/MIN 12/14/2013 Unknown GFR CALC 2055023 GFR NON-AA 58.0L ML/MIN 12/14/2013 Unkno wn COMPLETE BLOOD COUNT [id number] WBC 8.7 10e9/L 12/15/19 14 Unknown COMPLETE BLOOD COUNT [id number] RBC 4.32 10e12/L 2013 Unknown COMPLETE BLOOD COUNT 3655851 HGB 13.5 g/dL 4 Unknown COMPLETE BLOOD COUNT 2333685 HCT DET 40.6 % 4 Unknown COMPLETE BLOOD COUNT 0858597 MCV 94.0 fL 4 Unknown COMPLETE BLOOD COUNT 9818559 MCH 31.3 pg 4 Unknown COMPLETE BLOOD COUNT 4493799 MCHC 33.3 g/dL 4 Unknown COMPLETE BLOOD COUNT 4285093 PLT 205 10e9/L 12/15/19 14 Unknown COMPLETE BLOOD COUNT 9509823 MPV 11.7 fL 4 Unknown COMPLETE BLOOD COUNT 5295476 SAMIR % 62.5 % 4 Unknown COMPLETE BLOOD COUNT 4764106 LY % 26.9 % 4 Unknown COMPLETE BLOOD COUNT 7101395 MON % 8.8 % 4 Unknown COMPLETE BLOOD COUNT [id number] EOS % 1.7 % 4 Unknown COMPLETE BLOOD COUNT 5353241 BASO % 0.1 % 4 Unknown COMPLETE BLOOD COUNT 5204767 RDW 13.4 % 4 Unknown COMPLETE BLOOD COUNT [id number] ABS SAMIR 5.44 10e9/L 014 Unknown COMPLETE BLOOD COUNT 0687883 ABS LYMPH 2.34 10e9/L 014 Unknown COMPLETE BLOOD COUNT [id number] ABS MONO 0.77 10e9/L 014 Unknown COMPLETE BLOOD COUNT [id number] ABS EOS 0.15 10e9/L 014 Unknown COMPLETE BLOOD COUNT 7986283 ABS BASO 0.01 10e9/L 014 Unknown COMPLETE BLOOD COUNT 7173720 RDW-SD 44.7 fL 4 Unknown COMPREHENSIVE METABOLIC 07204 AST 14 U/L 2013 Unknown COMPREHENSIVE METABOLIC 64439 ALT 12 IU/L 2013 Unknown COMPREHENSIVE METABOLIC 52133 BUN 24 MG/DL 2013 Unknown COMPREHENSIVE METABOLIC 44859 ALBUMIN 4.5 GM/DL 2013 Unknown COMPREHENSIVE METABOLIC 18036 CHLORIDE 104 MMOL/L 12/14 Unknown COMPREHENSIVE METABOLIC 40555 BILI TOT 0.6 MG/DL 2013 Unknown COMPREHENSIVE METABOLIC 53130 ALK PHOS 82 U/L 2013 Unknown COMPREHENSIVE METABOLIC 31363 SODIUM 135 MMOL/L 12/14 Unknown COMPREHENSIVE METABOLIC 58124 CREATININE 1.25 MG/DL 12/05 Unknown COMPREHENSIVE METABOLIC 73298 CALCIUM 9.8 MG/DL 2013 Unknown COMPREHENSIVE METABOLIC 90511 POTASSIUM 4.7 MMOL/L 12/14 Unknown COMPREHENSIVE METABOLIC 54065 PROT TOT 6.7 GM/DL 2013 Unknown COMPREHENSIVE METABOLIC 15319 Glucose 126 MG/DL 2013 Unknown COMPREHENSIVE METABOLIC 34069 BICARB 27 MMOL/L 2013 Unknown COMPREHENSIVE METABOLIC 73624 ANION GAP 4 MEQ/L 2013 Unknown THYROID STIMULATING HORMONE 29606 TSH 3.281 uIU/ML 12/14/2013 Unknown FREE T4 81903 FREE T4 1.28 NG/DL 12/14/2013 Unknown LIPID GROUP 86906 HDL TEST 36 MG/DL 12/14/2013 Unknown LIPID GROUP 43373 TRIG 253 MG/DL 12/14/2013 Unknown LIPID GROUP 42702 TEST LDL 56 MG/DL 12/14/2013 Unknown LIPID GROUP 55221 CHOL 143 MG/DL 12/14/2013 Unknown LIPID GROUP 32434 RCHOL/HDL 3.97 RATIO 12/14/2013 Unknow n LIPID GROUP 52302 NON-HDL CH 107 MG/DL 12/14/2013 Unknow n GLYCOSYLATED HEMOGLOBIN TEST 21695 A1C HPLC 92959-2 6.1 % 0 12/14/2013 Unknown GLYCOSYLATED HEMOGLOBIN TEST 49971 A1C HPLC 44879-2 6.0 % 0 06/08/2013 Unknown LIPID GROUP 92339 HDL TEST 39 MG/DL 06/08/2013 Unknown LIPID GROUP 22637 TRIG 166 MG/DL 06/08/2013 Unknown LIPID GROUP 43102 TEST LDL 86 MG/DL 06/08/2013 Unknown LIPID GROUP 08893 CHOL 158 MG/DL 06/08/2013 Unknown LIPID GROUP 27384 RCHOL/HDL 4.05 RATIO 06/08/2013 Unknow n COMPREHENSIVE METABOLIC 00786 AST 17 U/L 2013 Unknown COMPREHENSIVE METABOLIC 19027 ALT 25 IU/L 2013 Unknown COMPREHENSIVE METABOLIC 66991 BUN 18 MG/DL 2013 Unknown COMPREHENSIVE METABOLIC 06561 ALBUMIN 4.5 GM/DL 2013 Unknown COMPREHENSIVE METABOLIC 16007 CHLORIDE 103 MMOL/L 06/08 Unknown COMPREHENSIVE METABOLIC 07889 BILI TOT 0.4 MG/DL 2013 Unknown COMPREHENSIVE METABOLIC 90949 ALK PHOS 72 U/L 2013 Unknown COMPREHENSIVE METABOLIC 48450 SODIUM 137 MMOL/L 06/08 Unknown COMPREHENSIVE METABOLIC 11537 CREATININE 1.07 MG/DL 08/2013 Unknown COMPREHENSIVE METABOLIC 87876 CALCIUM 9.7 MG/DL 2013 Unknown COMPREHENSIVE METABOLIC 36382 POTASSIUM 4.7 MMOL/L 06/08 Unknown COMPREHENSIVE METABOLIC 31345 PROT TOT 6.6 GM/DL 2013 Unknown COMPREHENSIVE METABOLIC 23120 Glucose 130 MG/DL 2013 Unknown COMPREHENSIVE METABOLIC 51695 BICARB 25 MMOL/L 2013 Unknown COMPREHENSIVE METABOLIC 57064 ANION GAP 9 MEQ/L 2013 Unknown FREE T4 86661 FREE T4 1.29 NG/DL 06/08/2013 Unknown THYROID STIMULATING HORMONE 82096 TSH 2.445 uIU/ML 06/08/2013 Unknown GFR CALC 4267444 GFR AA >60 ML/MIN 06/08/2013 Unknown GFR CALC 5299975 GFR NON-AA >60 ML/MIN 06/08/2013 Unknown COMPLETE BLOOD COUNT 2415559 WBC 8.2 10e9/L 06/09/19 14 Unknown COMPLETE BLOOD COUNT 2839487 RBC 4.63 10e12/L 2013 Unknown COMPLETE BLOOD COUNT 2701161 HGB 14.1 g/dL 4 Unknown COMPLETE BLOOD COUNT 1321674 HCT DET 42.6 % 4 Unknown COMPLETE BLOOD COUNT 3295172 MCV 92.0 fL 4 Unknown COMPLETE BLOOD COUNT 2282362 MCH 30.5 pg 4 Unknown COMPLETE BLOOD COUNT 2679168 MCHC 33.1 g/dL 4 Unknown COMPLETE BLOOD COUNT 7756237 PLT 222 10e9/L 06/09/19 14 Unknown COMPLETE BLOOD COUNT 1730342 MPV 10.8 fL 4 Unknown COMPLETE BLOOD COUNT 9857212 SAMIR % 60.8 % 4 Unknown COMPLETE BLOOD COUNT 0033643 LY % 29.2 % 4 Unknown COMPLETE BLOOD COUNT 7807675 MON % 7.6 % 4 Unknown COMPLETE BLOOD COUNT 6346641 EOS % 2.3 % 4 Unknown COMPLETE BLOOD COUNT 8100080 BASO % 0.1 % 4 Unknown COMPLETE BLOOD COUNT 5504771 RDW 13.7 % 4 Unknown COMPLETE BLOOD COUNT 9558965 ABS SAMIR 4.99 10e9/L 014 Unknown COMPLETE BLOOD COUNT 8960671 ABS LYMPH 2.39 10e9/L 014 Unknown COMPLETE BLOOD COUNT 7658562 ABS MONO 0.62 10e9/L 014 Unknown COMPLETE BLOOD COUNT 5580958 ABS EOS 0.19 10e9/L 014 Unknown COMPLETE BLOOD COUNT 8515525 ABS BASO 0.01 10e9/L 014 Unknown COMPLETE BLOOD COUNT 5985961 RDW-SD 45.2 fL 4 Unknown LIPID GROUP 79366 HDL TEST 40 MG/DL 11/11/2012 Unknown LIPID GROUP 54499 TRIG 153 MG/DL 11/11/2012 Unknown LIPID GROUP 18010 TEST LDL 71 MG/DL 11/11/2012 Unknown LIPID GROUP 81520 CHOL 142 MG/DL 11/11/2012 Unknown LIPID GROUP 55580 RCHOL/HDL 3.55 RATIO 11/11/2012 Unknow n GFR CALC 7480963 GFR AA >60 ML/MIN 11/11/2012 Unknown GFR CALC 2492316 GFR NON-AA 57.0L ML/MIN 11/11/2012 Unkno wn HEMOGLOBIN A1C (GLYCOSYLATED) 4233115 A1C HPLC 04554-7 5.9 % 11/11/2012 Unknown THYROID STIMULATING HORMONE 39557 TSH 2.439 uIU/ML 11/11/2012 Unknown COMPLETE BLOOD COUNT 0467471 WBC 8.5 10e9/L 11/12/19 13 Unknown COMPLETE BLOOD COUNT 3282020 RBC 4.42 10e12/L 2012 Unknown COMPLETE BLOOD COUNT 3047495 HGB 13.7 g/dL 3 Unknown COMPLETE BLOOD COUNT 7577771 HCT DET 41.3 % 3 Unknown COMPLETE BLOOD COUNT 4972551 MCV 93.4 fL 3 Unknown COMPLETE BLOOD COUNT 3438419 MCH 31.0 pg 3 Unknown COMPLETE BLOOD COUNT 8059578 MCHC 33.2 g/dL 3 Unknown COMPLETE BLOOD COUNT 8366376 PLT 220 10e9/L 11/12/19 13 Unknown COMPLETE BLOOD COUNT 8332042 MPV 10.8 fL 3 Unknown COMPLETE BLOOD COUNT 6715232 SAMIR % 60.4 % 3 Unknown COMPLETE BLOOD COUNT 7177580 LY % 28.7 % 3 Unknown COMPLETE BLOOD COUNT 9592393 MON % 8.0 % 3 Unknown COMPLETE BLOOD COUNT [id number] EOS % 2.8 % 3 Unknown COMPLETE BLOOD COUNT 7633546 BASO % 0.1 % 3 Unknown COMPLETE BLOOD COUNT 5526111 RDW 13.7 % 3 Unknown COMPLETE BLOOD COUNT 1596052 ABS SAMIR 5.13 10e9/L 013 Unknown COMPLETE BLOOD COUNT [id number] ABS LYMPH 2.44 10e9/L 013 Unknown COMPLETE BLOOD COUNT [id number] ABS MONO 0.68 10e9/L 013 Unknown COMPLETE BLOOD COUNT 2744081 ABS EOS 0.24 10e9/L 013 Unknown COMPLETE BLOOD COUNT 7584334 ABS BASO 0.01 10e9/L 013 Unknown COMPLETE BLOOD COUNT 7722564 RDW-SD 45.6 fL 3 Unknown COMPREHENSIVE METABOLIC 54539 AST 19 U/L 2012 Unknown COMPREHENSIVE METABOLIC 33440 ALT 28 IU/L 2012 Unknown COMPREHENSIVE METABOLIC 50299 BUN 31 MG/DL 2012 Unknown COMPREHENSIVE METABOLIC 76021 ALBUMIN 4.7 GM/DL 2012 Unknown COMPREHENSIVE METABOLIC 22015 CHLORIDE 106 MMOL/L 11/11 Unknown COMPREHENSIVE METABOLIC 62772 BILI TOT 0.5 MG/DL 2012 Unknown COMPREHENSIVE METABOLIC 32353 ALK PHOS 64 U/L 2012 Unknown COMPREHENSIVE METABOLIC 88804 SODIUM 136 MMOL/L 11/11 Unknown COMPREHENSIVE METABOLIC 14067 CREATININE 1.27 MG/DL 11/2012 Unknown COMPREHENSIVE METABOLIC 04708 CALCIUM 9.4 MG/DL 2012 Unknown COMPREHENSIVE METABOLIC 01173 POTASSIUM 4.9 MMOL/L 11/11 Unknown COMPREHENSIVE METABOLIC 22659 PROT TOT 6.7 GM/DL 2012 Unknown COMPREHENSIVE METABOLIC 76362 Glucose 108 MG/DL 2012 Unknown COMPREHENSIVE METABOLIC 49757 BICARB 21 MMOL/L 2012 Unknown COMPREHENSIVE METABOLIC 90019 ANION GAP 9 MEQ/L 2012 Unknown THYROID STIMULATING HORMONE 03705 TSH 2.572 uIU/ML 05/04/2012 Unknown COMPLETE BLOOD COUNT 7226910 WBC 9.3 10e9/L 05/04/19 13 Unknown COMPLETE BLOOD COUNT [id number] RBC 4.43 10e12/L 2012 Unknown COMPLETE BLOOD COUNT 5965340 HGB 14.2 g/dL 3 Unknown COMPLETE BLOOD COUNT 5994726 HCT DET 41.1 % 3 Unknown COMPLETE BLOOD COUNT 7821461 MCV 92.8 fL 3 Unknown COMPLETE BLOOD COUNT 7532319 MCH 32.1 pg 3 Unknown COMPLETE BLOOD COUNT 7527087 MCHC 34.5 g/dL 3 Unknown COMPLETE BLOOD COUNT 4612498 PLT 193 10e9/L 05/04/19 13 Unknown COMPLETE BLOOD COUNT 8452526 MPV 10.8 fL 3 Unknown COMPLETE BLOOD COUNT 5813470 SAMIR % 63.0 % 3 Unknown COMPLETE BLOOD COUNT 5765860 LY % 25.3 % 3 Unknown COMPLETE BLOOD COUNT 5572828 MON % 9.1 % 3 Unknown COMPLETE BLOOD COUNT 6405270 EOS % 2.5 % 3 Unknown COMPLETE BLOOD COUNT 1525264 BASO % 0.1 % 3 Unknown COMPLETE BLOOD COUNT 9794525 RDW 12.6 % 3 Unknown COMPLETE BLOOD COUNT 9050843 ABS SAMIR 5.86 10e9/L 013 Unknown COMPLETE BLOOD COUNT 0243741 ABS LYMPH 2.35 10e9/L 013 Unknown COMPLETE BLOOD COUNT 0378678 ABS MONO 0.85 10e9/L 013 Unknown COMPLETE BLOOD COUNT 4133055 ABS EOS 0.23 10e9/L 013 Unknown COMPLETE BLOOD COUNT 0505785 ABS BASO 0.01 10e9/L 013 Unknown COMPLETE BLOOD COUNT 7679677 RDW-SD 41.2 fL 3 Unknown LIPID GROUP 39918 HDL TEST 35 MG/DL 05/04/2012 Unknown LIPID GROUP 68538 TRIG 236 MG/DL 05/04/2012 Unknown LIPID GROUP 86124 TEST LDL 64 MG/DL 05/04/2012 Unknown LIPID GROUP 11760 CHOL 146 MG/DL 05/04/2012 Unknown LIPID GROUP 75077 RCHOL/HDL 4.17 RATIO 05/04/2012 Unknow n COMPREHENSIVE METABOLIC 75583 AST 23 U/L 2012 Unknown COMPREHENSIVE METABOLIC 94437 ALT 33 IU/L 2012 Unknown COMPREHENSIVE METABOLIC 39704 BUN 16 MG/DL 2012 Unknown COMPREHENSIVE METABOLIC 72432 ALBUMIN 4.8 GM/DL 2012 Unknown COMPREHENSIVE METABOLIC 41595 CHLORIDE 104 MMOL/L 05/04 Unknown COMPREHENSIVE METABOLIC 88445 BILI TOT 0.5 MG/DL 2012 Unknown COMPREHENSIVE METABOLIC 06234 ALK PHOS 70 U/L 2012 Unknown COMPREHENSIVE METABOLIC 41966 SODIUM 138 MMOL/L 05/04 Unknown COMPREHENSIVE METABOLIC 90896 CREATININE 1.08 MG/DL 04/07 Unknown COMPREHENSIVE METABOLIC 96320 CALCIUM 9.7 MG/DL 2012 Unknown COMPREHENSIVE METABOLIC 48793 POTASSIUM 4.4 MMOL/L 05/04 Unknown COMPREHENSIVE METABOLIC 73872 PROT TOT 6.8 GM/DL 2012 Unknown COMPREHENSIVE METABOLIC 04709 Glucose 114 MG/DL 2012 Unknown COMPREHENSIVE METABOLIC 57736 BICARB 27 MMOL/L 2012 Unknown COMPREHENSIVE METABOLIC 41151 ANION GAP 7 MEQ/L 2012 Unknown FREE T4 56590 FREE T4 1.11 NG/DL 05/04/2012 Unknown GFR CALC 5873280 GFR AA >60 ML/MIN 05/04/2012 Unknown GFR CALC 7817383 GFR NON-AA >60 ML/MIN 05/04/2012 Unknown GLYCOSYLATED HEMOGLOBIN TEST 94435 A1C HPLC 57358-7 5.8 % 0 10/29/2011 Unknown COMPREHENSIVE METABOLIC 13793 AST 17 U/L 2011 Unknown COMPREHENSIVE METABOLIC 33984 ALT 21 IU/L 2011 Unknown COMPREHENSIVE METABOLIC 08585 BUN 17 MG/DL 2011 Unknown COMPREHENSIVE METABOLIC 43215 ALBUMIN 4.8 GM/DL 2011 Unknown COMPREHENSIVE METABOLIC 85693 CHLORIDE 106 MMOL/L 10/28 Unknown COMPREHENSIVE METABOLIC 77958 BILI TOT 0.6 MG/DL 2011 Unknown COMPREHENSIVE METABOLIC 67173 ALK PHOS 57 U/L 2011 Unknown COMPREHENSIVE METABOLIC 78519 SODIUM 139 MMOL/L 10/28 Unknown COMPREHENSIVE METABOLIC 43123 CREATININE 1.08 MG/DL 10/05 Unknown COMPREHENSIVE METABOLIC 91816 CALCIUM 9.6 MG/DL 2011 Unknown COMPREHENSIVE METABOLIC 36159 POTASSIUM 4.4 MMOL/L 10/28 Unknown COMPREHENSIVE METABOLIC 97628 PROT TOT 6.9 GM/DL 2011 Unknown COMPREHENSIVE METABOLIC 64117 Glucose 104 MG/DL 2011 Unknown COMPREHENSIVE METABOLIC 01167 BICARB 25 MMOL/L 2011 Unknown COMPREHENSIVE METABOLIC 45846 ANION GAP 8 MEQ/L 2011 Unknown LIPID GROUP 08898 HDL TEST 39 MG/DL 10/29/2011 Unknown LIPID GROUP 05266 TRIG 176 MG/DL 10/29/2011 Unknown LIPID GROUP 68328 TEST LDL 70 MG/DL 10/29/2011 Unknown LIPID GROUP 34018 CHOL 144 MG/DL 10/29/2011 Unknown LIPID GROUP 38633 RCHOL/HDL 3.69 RATIO 10/29/2011 Unknow n GFR CALC 2574092 GFR AA >60 ML/MIN 10/29/2011 Unknown GFR CALC 4474226 GFR NON-AA >60 ML/MIN 10/29/2011 Unknown GFR CALC 2007753 GFR AA >60 ML/MIN 03/14/2011 Unknown GFR CALC 6212074 GFR NON-AA >60 ML/MIN 03/14/2011 Unknown GLYCOSYLATED HEMOGLOBIN TEST 80374 A1C HPLC 59578-4 5.7 % 1 05/15/2010 Unknown COMPREHENSIVE METABOLIC 22724 AST 18 U/L 2010 Unknown COMPREHENSIVE METABOLIC 38094 ALT 25 IU/L 2010 Unknown COMPREHENSIVE METABOLIC 57837 BUN 15 MG/DL 2010 Unknown COMPREHENSIVE METABOLIC 36521 ALBUMIN 4.6 GM/DL 2010 Unknown COMPREHENSIVE METABOLIC 00531 CHLORIDE 107 MMOL/L 03/14 Unknown COMPREHENSIVE METABOLIC 41860 BILI TOT 0.6 MG/DL 2010 Unknown COMPREHENSIVE METABOLIC 07728 ALK PHOS 54 U/L 2010 Unknown COMPREHENSIVE METABOLIC 78795 SODIUM 140 MMOL/L 03/14 Unknown COMPREHENSIVE METABOLIC 13931 CREATININE 1.02 MG/DL 12/2010 Unknown COMPREHENSIVE METABOLIC 47924 CALCIUM 9.4 MG/DL 2010 Unknown COMPREHENSIVE METABOLIC 46737 POTASSIUM 4.6 MMOL/L 03/14 Unknown COMPREHENSIVE METABOLIC 57808 PROT TOT 7.0 GM/DL 2010 Unknown COMPREHENSIVE METABOLIC 40879 Glucose 107 MG/DL 2010 Unknown COMPREHENSIVE METABOLIC 96307 BICARB 28 MMOL/L 2010 Unknown COMPREHENSIVE METABOLIC 02811 ANION GAP 5 MEQ/L 2010 Unknown LIPID GROUP 35087 HDL TEST 39 MG/DL 03/14/2011 Unknown LIPID GROUP 31534 TRIG 157 MG/DL 03/14/2011 Unknown LIPID GROUP 33321 TEST LDL 66 MG/DL 03/14/2011 Unknown LIPID GROUP 92127 CHOL 136 MG/DL 03/14/2011 Unknown LIPID GROUP 14867 RCHOL/HDL 3.49 RATIO 03/14/2011 Unknow n GFR CALC 9971468 GFR AA >60 ML/MIN 11/11/2010 Unknown GFR CALC 4906563 GFR NON-AA >60 ML/MIN 11/11/2010 Unknown LIPID GROUP 88190 HDL TEST 39 MG/DL 11/11/2010 Unknown LIPID GROUP 33786 TRIG 212 MG/DL 11/11/2010 Unknown LIPID GROUP 91697 TEST LDL 67 MG/DL 11/11/2010 Unknown LIPID GROUP 66579 CHOL 148 MG/DL 11/11/2010 Unknown LIPID GROUP 24713 RCHOL/HDL 3.79 RATIO 11/11/2010 Unknow n COMPREHENSIVE METABOLIC 73242 AST 17 U/L 2010 Unknown COMPREHENSIVE METABOLIC 35035 ALT 21 IU/L 2010 Unknown COMPREHENSIVE METABOLIC 52366 BUN 16 MG/DL 2010 Unknown COMPREHENSIVE METABOLIC 99857 ALBUMIN 4.6 GM/DL 2010 Unknown COMPREHENSIVE METABOLIC 16702 CHLORIDE 106 MMOL/L 11/11 Unknown COMPREHENSIVE METABOLIC 31570 BILI TOT 0.5 MG/DL 2010 Unknown COMPREHENSIVE METABOLIC 26269 ALK PHOS 61 U/L 2010 Unknown COMPREHENSIVE METABOLIC 17352 SODIUM 139 MMOL/L 11/11 Unknown COMPREHENSIVE METABOLIC 85112 CREATININE 1.00 MG/DL 11/2010 Unknown COMPREHENSIVE METABOLIC 58805 CALCIUM 9.5 MG/DL 2010 Unknown COMPREHENSIVE METABOLIC 35257 POTASSIUM 4.5 MMOL/L 11/11 Unknown COMPREHENSIVE METABOLIC 08152 PROT TOT 6.9 GM/DL 2010 Unknown COMPREHENSIVE METABOLIC 27711 Glucose 111 MG/DL 2010 Unknown COMPREHENSIVE METABOLIC 60978 BICARB 26 MMOL/L 2010 Unknown COMPREHENSIVE METABOLIC 11931 ANION GAP 7 MEQ/L 2010 Unknown HEMOGLOBIN A1C (GLYCOSYLATED) 80228 A1C HPLC 14987-1 5.6 % 07/24/2010 Unknown GFR CALC 9561958 GFR AA >60 ML/MIN 07/23/2010 Unknown GFR CALC 5362244 GFR NON-AA >60 ML/MIN 07/23/2010 Unknown COMPREHENSIVE METABOLIC 68738 AST 19 U/L 2010 Unknown COMPREHENSIVE METABOLIC 92131 ALT 33 IU/L 2010 Unknown COMPREHENSIVE METABOLIC 75613 BUN 14 MG/DL 2010 Unknown COMPREHENSIVE METABOLIC 87480 ALBUMIN 4.7 GM/DL 2010 Unknown COMPREHENSIVE METABOLIC 88688 CHLORIDE 107 MMOL/L 07/23 Unknown COMPREHENSIVE METABOLIC 55277 BILI TOT 0.4 MG/DL 2010 Unknown COMPREHENSIVE METABOLIC 42408 ALK PHOS 80 U/L 2010 Unknown COMPREHENSIVE METABOLIC 64453 SODIUM 141 MMOL/L 07/23 Unknown COMPREHENSIVE METABOLIC 89031 CREATININE 0.97 MG/DL 07/05 Unknown COMPREHENSIVE METABOLIC 22444 CALCIUM 9.5 MG/DL 2010 Unknown COMPREHENSIVE METABOLIC 86739 POTASSIUM 4.1 MMOL/L 07/23 Unknown COMPREHENSIVE METABOLIC 32105 PROT TOT 6.8 GM/DL 2010 Unknown COMPREHENSIVE METABOLIC 75639 Glucose 120 MG/DL 2010 Unknown COMPREHENSIVE METABOLIC 83422 BICARB 26 MMOL/L 2010 Unknown COMPREHENSIVE METABOLIC 02559 ANION GAP 8 MEQ/L 2010 Unknown LIPID GROUP 12755 HDL TEST 41 MG/DL 07/23/2010 Unknown LIPID GROUP 29589 TRIG 175 MG/DL 07/23/2010 Unknown LIPID GROUP 50493 TEST LDL 72 MG/DL 07/23/2010 Unknown LIPID GROUP 40734 CHOL 148 MG/DL 07/23/2010 Unknown LIPID GROUP 71486 RCHOL/HDL 3.61 RATIO 07/23/2010 Unknow n PSA FREE AND TOTAL 60499|72451 % FREE PSA FOOTNOTE % 011 Unknown PSA FREE AND TOTAL 02086|05598 XPSA TOTAL 0.83 NG/ML 011 Unknown PSA FREE AND TOTAL 00540|31532 XPSA FREE 0.13 NG/ML 04/26/19 11 Unknown VITAMIN D TOTAL (25 HYDROXY) 80187 VIT D TOTL 26 NG/ML 04/22/2010 Unknown TESTOSTERONE TOTAL 11594 TESTOS TO 387 NG/DL 04/19/2010 Unknown GFR CALC 9497706 GFR AA >60 ML/MIN 04/19/2010 Unknown GFR CALC 1670389 GFR NON-AA >60 ML/MIN 04/19/2010 Unknown COMPLETE BLOOD COUNT 58180 WBC 7.0 10e9/L 04/19/19 11 Unknown COMPLETE BLOOD COUNT 82819 RBC 5.07 10e12/L 2010 Unknown COMPLETE BLOOD COUNT 60756 HGB 15.6 g/dL 1 Unknown COMPLETE BLOOD COUNT 37745 HCT DET 46.2 % 1 Unknown COMPLETE BLOOD COUNT 02121 MCV 91.1 fL 1 Unknown COMPLETE BLOOD COUNT 64023 MCH 30.8 pg 1 Unknown COMPLETE BLOOD COUNT 81236 MCHC 33.8 g/dL 1 Unknown COMPLETE BLOOD COUNT 23607 PLT 205 10e9/L 04/19/19 11 Unknown COMPLETE BLOOD COUNT 15483 MPV 11.1 fL 1 Unknown COMPLETE BLOOD COUNT 70164 SAMIR % 62.4 % 1 Unknown COMPLETE BLOOD COUNT 95179 LY % 28.5 % 1 Unknown COMPLETE BLOOD COUNT 07175 MON % 6.9 % 1 Unknown COMPLETE BLOOD COUNT 58327 EOS % 2.1 % 1 Unknown COMPLETE BLOOD COUNT 14864 BASO % 0.1 % 1 Unknown COMPLETE BLOOD COUNT 94533 RDW 13.4 % 1 Unknown COMPLETE BLOOD COUNT 45058 ABS SAMIR 4.37 10e9/L 011 Unknown COMPLETE BLOOD COUNT 60120 ABS LYMPH 2.00 10e9/L 011 Unknown COMPLETE BLOOD COUNT 99060 ABS MONO 0.48 10e9/L 011 Unknown COMPLETE BLOOD COUNT 74780 ABS EOS 0.15 10e9/L 011 Unknown COMPLETE BLOOD COUNT 34501 ABS BASO 0.01 10e9/L 011 Unknown COMPLETE BLOOD COUNT 45667 RDW-SD 43.8 fL 1 Unknown LIPID GROUP 45683 HDL TEST 39 MG/DL 04/19/2010 Unknown LIPID GROUP 49493 TRIG 244 MG/DL 04/19/2010 Unknown LIPID GROUP 81047 TEST LDL 168 MG/DL 04/19/2010 Unknown LIPID GROUP 93754 CHOL 256 MG/DL 04/19/2010 Unknown LIPID GROUP 40170 RCHOL/HDL 6.56 RATIO 04/19/2010 Unknow n COMPREHENSIVE METABOLIC 19655 AST 28 U/L 2010 Unknown COMPREHENSIVE METABOLIC 18601 ALT 46 IU/L 2010 Unknown COMPREHENSIVE METABOLIC 26999 BUN 14 MG/DL 2010 Unknown COMPREHENSIVE METABOLIC 13834 ALBUMIN 4.9 GM/DL 2010 Unknown COMPREHENSIVE METABOLIC 66473 CHLORIDE 104 MMOL/L 04/19 Unknown COMPREHENSIVE METABOLIC 49166 BILI TOT 0.8 MG/DL 2010 Unknown COMPREHENSIVE METABOLIC 17303 ALK PHOS 71 U/L 2010 Unknown COMPREHENSIVE METABOLIC 88408 SODIUM 139 MMOL/L 04/19 Unknown COMPREHENSIVE METABOLIC 94677 CREATININE 1.06 MG/DL 04/06 Unknown COMPREHENSIVE METABOLIC 93741 CALCIUM 9.9 MG/DL 2010 Unknown COMPREHENSIVE METABOLIC 62490 POTASSIUM 4.3 MMOL/L 04/19 Unknown COMPREHENSIVE METABOLIC 78727 PROT TOT 7.2 GM/DL 2010 Unknown COMPREHENSIVE METABOLIC 75580 Glucose 99 MG/DL 2010 Unknown COMPREHENSIVE METABOLIC 48807 BICARB 28 MMOL/L 2010 Unknown COMPREHENSIVE METABOLIC 09098 ANION GAP 7 MEQ/L 2010 Unknown FREE T4 18348 FREE T4 1.26 NG/DL 04/19/2010 Unknown Procedures Procedure Codes Date ROUTINE VENIPUNCTURE CPT-4: 84764 08/24/2019 COMPREHEN METABOLIC PANEL CPT-4: 61781 08/24/2019 A1C HPLC CPT-4: 26741 08/24/2019 ROUTINE VENIPUNCTURE CPT-4: 16008 05/24/2019 COMPREHEN METABOLIC PANEL CPT-4: 37685 05/24/2019 A1C HPLC CPT-4: 99546 05/24/2019 FLU VACC PRSV FREE INC ANTIG 65 AND OLDER CPT-4: 95708 01/26/2019 FLU VACC PRSV FREE INC ANTIG 65 AND OLDER CPT-4: 02718 01/26/2019 ADMIN INFLUENZA VIRUS VAC CPT-4: G0008 01/26/2019 ROUTINE VENIPUNCTURE CPT-4: 76842 01/26/2019 COMPREHEN METABOLIC PANEL CPT-4: 62441 01/26/2019 COMPLETE CBC W/AUTO DIFF WBC CPT-4: 09554 01/26/2019 LIPID PANEL CPT-4: 56922 01/26/2019 A1C HPLC CPT-4: 50976 01/26/2019 ROUTINE VENIPUNCTURE CPT-4: 25614 09/30/2018 METABOLIC PANEL TOTAL CA CPT-4: 89946 09/30/2018 URINALYSIS NONAUTO W/O SCOPE CPT-4: 97950 08/19/2018 URINE CULTURE/ COLONY COUNT CPT-4: 09372 08/19/2018 MICROALBUMIN QUANTITATIVE CPT-4: 55287 08/19/2018 ROUTINE VENIPUNCTURE CPT-4: 97792 08/16/2018 ASSAY THYROID STIM HORMONE CPT-4: 29992 08/16/2018 COMPREHEN METABOLIC PANEL CPT-4: 15092 08/16/2018 COMPLETE CBC W/AUTO DIFF WBC CPT-4: 77012 08/16/2018 LIPID PANEL CPT-4: 11072 08/16/2018 A1C HPLC CPT-4: 19644 08/16/2018 LIPID PANEL CPT-4: 99578 05/05/2018 COMPREHEN METABOLIC PANEL CPT-4: 81129 05/05/2018 ROUTINE VENIPUNCTURE CPT-4: 26828 05/05/2018 A1C HPLC CPT-4: 64502 05/05/2018 COMPLETE CBC W/AUTO DIFF WBC CPT-4: 10985 05/05/2018 ASSAY THYROID STIM HORMONE CPT-4: 36997 05/05/2018 MICROALBUMIN QUANTITATIVE CPT-4: 41422 01/19/2018 PRESCRIP TRANSMIT VIA ERX SY CPT-4: G8553 01/19/2018 ROUTINE VENIPUNCTURE CPT-4: 64601 01/13/2018 COMPREHEN METABOLIC PANEL CPT-4: 58896 01/13/2018 A1C HPLC CPT-4: 92100 01/13/2018 LIPID PANEL CPT-4: 77122 01/13/2018 ASSAY OF PSA TOTAL CPT-4: 85693 01/13/2018 ASSAY THYROID STIM HORMONE CPT-4: 78149 01/13/2018 ROUTINE VENIPUNCTURE CPT-4: 01875 10/06/2017 COMPREHEN METABOLIC PANEL CPT-4: 97055 10/06/2017 COMPLETE CBC W/AUTO DIFF WBC CPT-4: 15236 10/06/2017 LIPID PANEL CPT-4: 95747 10/06/2017 A1C HPLC CPT-4: 33363 10/06/2017 VITAMIN B-12 CPT-4: 30631 10/06/2017 DESTRUCT PREMALG LESION (Cryosurgery) CPT-4: 98508 DESTRUCT PREMALG LES 2-14 CPT-4: 07045 04/23/2017 PRESCRIP TRANSMIT VIA ERX SY CPT-4: G8553 03/11/2017 ROUTINE VENIPUNCTURE CPT-4: 71509 03/05/2017 ASSAY OF FREE THYROXINE CPT-4: 44932 03/05/2017 ASSAY THYROID STIM HORMONE CPT-4: 09609 03/05/2017 COMPREHEN METABOLIC PANEL CPT-4: 80962 03/05/2017 COMPLETE CBC W/AUTO DIFF WBC CPT-4: 97685 03/05/2017 LIPID PANEL CPT-4: 03879 03/05/2017 A1C HPLC CPT-4: 54908 03/05/2017 ROUTINE VENIPUNCTURE CPT-4: 46420 06/16/2016 ASSAY OF FREE THYROXINE CPT-4: 62861 06/16/2016 ASSAY THYROID STIM HORMONE CPT-4: 31861 06/16/2016 COMPREHEN METABOLIC PANEL CPT-4: 54105 06/16/2016 COMPLETE CBC W/AUTO DIFF WBC CPT-4: 10247 06/16/2016 LIPID PANEL CPT-4: 87331 06/16/2016 A1C HPLC CPT-4: 04193 06/16/2016 ROUTINE VENIPUNCTURE CPT-4: 77376 03/06/2016 ASSAY OF FREE THYROXINE CPT-4: 83964 03/06/2016 ASSAY THYROID STIM HORMONE CPT-4: 86652 03/06/2016 COMPREHEN METABOLIC PANEL CPT-4: 32044 03/06/2016 COMPLETE CBC W/AUTO DIFF WBC CPT-4: 78630 03/06/2016 LIPID PANEL CPT-4: 87523 03/06/2016 A1C HPLC CPT-4: 77071 03/06/2016 PRESCRIP TRANSMIT VIA ERX SY CPT-4: G8553 09/10/2015 PNEUMOCOCCAL VACC 23 ROSANNE IM CPT-4: 70552 09/06/2015 ADMIN PNEUMOCOCCAL VACCINE CPT-4: G0009 09/06/2015 ROUTINE VENIPUNCTURE CPT-4: 60388 08/31/2015 COMPREHEN METABOLIC PANEL CPT-4: 77043 08/31/2015 COMPLETE CBC W/AUTO DIFF WBC CPT-4: 12144 08/31/2015 LIPID PANEL CPT-4: 11778 08/31/2015 ASSAY OF PSA TOTAL CPT-4: 24700 08/31/2015 A1C HPLC CPT-4: 50077 08/31/2015 ASSAY OF FREE THYROXINE CPT-4: 90318 08/31/2015 ASSAY THYROID STIM HORMONE CPT-4: 80981 08/31/2015 PRESCRIP TRANSMIT VIA ERX SY CPT-4: G8553 06/29/2015 FLU VACC PRSV FREE INC ANTIG 65 AND OLDER CPT-4: 11237 01/17/2015 PNEUMOCOCCAL VACC 13 ROSANNE IM CPT-4: 10210 01/17/2015 ADMIN INFLUENZA VIRUS VAC CPT-4: G0008 01/17/2015 ADMIN PNEUMOCOCCAL VACCINE CPT-4: G0009 01/17/2015 DESTRUCT PREMALG LESION (Cryosurgery) CPT-4: 76379 PRESCRIP TRANSMIT VIA ERX SY CPT-4: G8553 01/17/2015 ROUTINE VENIPUNCTURE CPT-4: 59357 01/12/2015 COMPREHEN METABOLIC PANEL CPT-4: 77319 01/12/2015 COMPLETE CBC W/AUTO DIFF WBC CPT-4: 34453 01/12/2015 LIPID PANEL CPT-4: 94503 01/12/2015 A1C HPLC CPT-4: 82374 01/12/2015 DESTRUCT PREMALG LESION (Cryosurgery) CPT-4: 29238 ROUTINE VENIPUNCTURE CPT-4: 45618 08/15/2014 COMPREHEN METABOLIC PANEL CPT-4: 03653 08/15/2014 COMPLETE CBC W/AUTO DIFF WBC CPT-4: 97032 08/15/2014 LIPID PANEL CPT-4: 31748 08/15/2014 A1C HPLC CPT-4: 05932 08/15/2014 ASSAY OF PSA TOTAL CPT-4: 69138 08/15/2014 ASSAY OF FREE THYROXINE CPT-4: 79395 08/15/2014 ASSAY THYROID STIM HORMONE CPT-4: 88170 08/15/2014 ROUTINE VENIPUNCTURE CPT-4: 45860 12/14/2013 ASSAY OF FREE THYROXINE CPT-4: 83291 12/14/2013 ASSAY THYROID STIM HORMONE CPT-4: 42785 12/14/2013 COMPREHEN METABOLIC PANEL CPT-4: 51250 12/14/2013 COMPLETE CBC W/AUTO DIFF WBC CPT-4: 26931 12/14/2013 LIPID PANEL CPT-4: 94262 12/14/2013 A1C HPLC CPT-4: 92264 12/14/2013 ROUTINE VENIPUNCTURE CPT-4: 57613 06/08/2013 ASSAY OF FREE THYROXINE CPT-4: 90499 06/08/2013 ASSAY THYROID STIM HORMONE CPT-4: 37221 06/08/2013 COMPREHEN METABOLIC PANEL CPT-4: 07442 06/08/2013 COMPLETE CBC W/AUTO DIFF WBC CPT-4: 23938 06/08/2013 LIPID PANEL CPT-4: 40164 06/08/2013 A1C HPLC CPT-4: 63555 06/08/2013 ROUTINE VENIPUNCTURE CPT-4: 96933 11/11/2012 COMPREHEN METABOLIC PANEL CPT-4: 27232 11/11/2012 COMPLETE CBC W/AUTO DIFF WBC CPT-4: 87040 11/11/2012 LIPID PANEL CPT-4: 69520 11/11/2012 A1C GLYCOSYLATED HEMOGLOBIN TEST CPT-4: 97005 013 ASSAY THYROID STIM HORMONE CPT-4: 81735 11/11/2012 ROUTINE VENIPUNCTURE CPT-4: 02089 05/04/2012 ASSAY OF FREE THYROXINE CPT-4: 76480 05/04/2012 ASSAY THYROID STIM HORMONE CPT-4: 57675 05/04/2012 COMPREHEN METABOLIC PANEL CPT-4: 43995 05/04/2012 COMPLETE CBC W/AUTO DIFF WBC CPT-4: 20167 05/04/2012 LIPID PANEL CPT-4: 29341 05/04/2012 DESTRUCT PREMALG LESION (Cryosurgery) CPT-4: 37807 DESTRUCT PREMALG LES 2-14 CPT-4: 74381 03/02/2012 ROUTINE VENIPUNCTURE CPT-4: 04996 10/29/2011 COMPREHEN METABOLIC PANEL CPT-4: 78965 10/29/2011 LIPID PANEL CPT-4: 92538 10/29/2011 A1C GLYCOSYLATED HEMOGLOBIN TEST CPT-4: 55062 012 ROUTINE VENIPUNCTURE CPT-4: 15493 07/29/2011 COMPREHEN METABOLIC PANEL CPT-4: 28200 07/29/2011 LIPID PANEL CPT-4: 41079 07/29/2011 A1C GLYCOSYLATED HEMOGLOBIN TEST CPT-4: 29527 012 ROUTINE VENIPUNCTURE CPT-4: 73814 03/14/2011 COMPREHEN METABOLIC PANEL CPT-4: 87462 03/14/2011 LIPID PANEL CPT-4: 59715 03/14/2011 A1C GLYCOSYLATED HEMOGLOBIN TEST CPT-4: 95155 011 ROUTINE VENIPUNCTURE CPT-4: 96563 11/11/2010 COMPREHEN METABOLIC PANEL CPT-4: 52789 11/11/2010 LIPID PANEL CPT-4: 49753 11/11/2010 URINE CULTURE/ COLONY COUNT CPT-4: 46041 11/11/2010 URINALYSIS NONAUTO W/O SCOPE CPT-4: 13038 10/29/2010 URINE CULTURE/ COLONY COUNT CPT-4: 72349 10/29/2010 LIPID PANEL CPT-4: 39527 07/23/2010 COMPREHEN METABOLIC PANEL CPT-4: 03998 07/23/2010 ROUTINE VENIPUNCTURE CPT-4: 47674 07/23/2010 ROUTINE VENIPUNCTURE CPT-4: 27544 04/26/2010 PSA FREE AND TOTAL CPT-4: 76795|35838 04/26/2010 OCCULT BLOOD FECES CPT-4: 47048 04/24/2010 ROUTINE VENIPUNCTURE CPT-4: 27674 04/19/2010 COMPLETE CBC W/AUTO DIFF WBC CPT-4: 96231 04/19/2010 COMPREHEN METABOLIC PANEL CPT-4: 62906 04/19/2010 LIPID PANEL CPT-4: 33331 04/19/2010 TESTOSTERONE TOTAL - MALE CPT-4: 43514 04/19/2010 ASSAY THYROID STIM HORMONE CPT-4: 98729 04/19/2010 ASSAY OF FREE THYROXINE CPT-4: 36150 04/19/2010 VITAMIN D TOTAL (25 HYDROXY) CPT-4: 50267 04/19/2010 Vital Signs Date Vital 06/02/2019 Blood Pressure 1: 132/80 Code: 8480-6 BMI: 29.5 Code: 47248-4 Heart Rate 1: 64 bpm Height: 6'3" [...] 1: 112/70 Code: 8480-6 BMI: 28.9 Code: 91719-2 Heart Rate 1: 60 bpm Height: 6'3" Respiratory Rate: 20 bpm SpO2: 95% Tempera ture: 36.6 (C) / 97.9 (F) Weight: 231 lbs 01/19/2018 Blood Pressure 1: 150/82 Code: 8480-6 Heart Rate 1: 63 bpm Respiratory Rate: 18 bpm SpO2: 98% Temperature: 36.0 (C) / 96.8 (F) We ight: 225 lbs 10/15/2017 Blood Pressure 1: 126/82 Code: 8480-6 BMI: 27.9 Code: 39695-8 Heart Rate 1: 64 bpm Height: 6'3" Respiratory Rate: 20 bpm SpO2: 96% Tempera ture: 36.7 (C) / 98.1 (F) Weight: 223 lbs 04/23/2017 Blood Pressure 1: 136/74 Code: 8480-6 BMI: 28.7 Code: 88025-9 Heart Rate 1: 76 bpm Height: 6'3" Respiratory Rate: 20 bpm Temperature: 37 .0 (C) / 98.6 (F) Weight: 230 lbs 03/11/2017 Blood Pressure 1: 136/66 Code: 8480-6 BMI: 28.6 Code: 89312-4 Heart Rate 1: 60 bpm Height: 6'3" Respiratory Rate: 20 bpm Temperature: 36 .7 (C) / 98.1 (F) Weight: 229 lbs 07/09/2016 Blood Pressure 1: 132/80 Code: 8480-6 BMI: 27.7 Code: 71816-9 Heart Rate 1: 64 bpm Height: 6'3" Respiratory Rate: 20 bpm SpO2: 96% Tempera ture: 36.9 (C) / 98.4 (F) Weight: 222 lbs 03/10/2016 Blood Pressure 1: 134/78 Code: 8480-6 BMI: 28.5 Code: 02541-5 Heart Rate 1: 60 bpm Height: 6'3" Respiratory Rate: 20 bpm SpO2: 96% Tempera ture: 36.7 (C) / 98.1 (F) Weight: 228 lbs 09/12/2015 Blood Pressure 1: 13678 Code: 8480-6 Heart Rate 1: 84 bpm Height: Respiratory Rate: 24 bpm SpO2: 97% Temperature: 36.4 (C) / 97.6 (F) We ight: 09/10/2015 Blood Pressure 1: 124 Code: 8480-6 BMI: 28.5 Code: 81078-3 Heart Rate 1: 76 bpm Height: 6'3" Respiratory Rate: 24 bpm SpO2: 97% Tempera ture: 36.4 (C) / 97.6 (F) Weight: 228 lbs 09/06/2015 Blood Pressure 1: 12482 Code: 8480-6 BMI: 29.0 Code: 92593-3 Heart Rate 1: 66 bpm Height: 6'3" Respiratory Rate: 20 bpm SpO2: 97% Tempera ture: 36.4 (C) / 97.6 (F) Weight: 232 lbs 06/29/2015 Blood Pressure 1: 124/82 Code: 8480-6 Heart Rate 1: 88 bpm Height: Respiratory Rate: 20 bpm Temperature: 36.7 (C) / 98.1 (F) Weight: 01/17/2015 Blood Pressure 1: 124 Code: 8480-6 BMI: 27.7 Code: 42165-4 Heart Rate 1: 76 bpm Height: 6'3" Respiratory Rate: 20 bpm Temperature: 36 .6 (C) / 97.8 (F) Weight: 222 lbs 09/19/2014 Blood Pressure 1: 128/80 Code: 8480-6 BMI: 27.4 Code: 89813-6 Heart Rate 1: 64 bpm Height: 6'3" Respiratory Rate: 20 bpm Temperature: 36 .4 (C) / 97.6 (F) Weight: 219 lbs 10/17/2013 Blood Pressure 1: 116/70 Code: 8480-6 Heart Rate 1: 88 bpm Respiratory Rate: 20 bpm Temperature: 36.9 (C) / 98.4 (F) Weight: 220 lbs 09/23/2013 Blood Pressure 1: 124/80 Code: 8480-6 BMI: 28.7 Code: 68850-4 Heart Rate 1: 76 bpm Height: 6'3" Respiratory Rate: 20 bpm Temperature: 36 .8 (C) / 98.2 (F) Weight: 230 lbs 07/22/2013 Blood Pressure 1: 128/70 Code: 8480-6 He art Rate 1: 78 bpm 06/20/2013 Blood Pressure 1: 144/86 Code: 8480-6 BMI: 28.7 Code: 84201-1 Heart Rate 1: 92 bpm Height: 6'3" Respiratory Rate: 20 bpm Temperature: 36 .4 (C) / 97.6 (F) Weight: 230 lbs 11/25/2012 Blood Pressure 1: 128/80 Code: 8480-6 BMI: 27.5 Code: 37961-9 Heart Rate 1: 92 bpm Height: 6'3" Respiratory Rate: 20 bpm Temperature: 36 .8 (C) / 98.3 (F) Weight: 220 lbs 08/27/2012 Blood Pressure 1: 142/80 Code: 8480-6 BMI: 27.7 Code: 37364-2 Heart Rate 1: 76 bpm Height: 6'3" Respiratory Rate: 20 bpm Temperature: 36 .8 (C) / 98.3 (F) Weight: 222 lbs 05/11/2012 Blood Pressure 1: 136/80 Code: 8480-6 BMI: 27.7 Code: 16494-7 Heart Rate 1: 76 bpm Height: 6'3" Respiratory Rate: 20 bpm Temperature: 36 .8 (C) / 98.3 (F) Weight: 222 lbs 03/02/2012 Blood Pressure 1: 136/70 Code: 8480-6 BMI: 28.0 Code: 96622-2 Heart Rate 1: 80 bpm Height: 6'3" Respiratory Rate: 20 bpm Temperature: 36 .6 (C) / 97.8 (F) Weight: 224 lbs 12/11/2011 Blood Pressure 1: 142/80 Code: 8480-6 BMI: 27.1 Code: 92414-5 Heart Rate 1: 84 bpm Height: 6'3" Respiratory Rate: 20 bpm Temperature: 36 .9 (C) / 98.4 (F) Weight: 217 lbs 08/14/2011 Blood Pressure 1: 130/82 Code: 8480-6 He art Rate 1: 64 bpm 07/29/2011 Blood Pressure 1: 132/64 Code: 8480-6 BMI: 26.7 Code: 70027-9 Heart Rate 1: 72 bpm Height: 6'3" [...] 1: 142/88 Code: 8480-6 BMI: 26.4 Code: 54294-5 Heart Rate 1: 80 bpm Height: 6'3" [...] For Visit Effective Dates Notes follow up 06/02/2019 lab draw 05/24/2019 follow [...] labs Encounters Encounter Performer Location Codes Date ([id number]) NURSE/OUTPATIENT VISIT EST Diagnosis: Essential (primary) hypertension[ICD10: I10] Diagnosis: Type 2 diabetes mellitus with hyperglycemia[ICD10: E11.65] Najma OG [facility] CPT-4: 61236 08/24/2019 ([id number]) OFFICE/OUTPATIENT VISIT EST Diagnosis: Essential (primary) hypertension[ICD10: I10] Diagnosis: Gastro-esophageal reflux disease without esophagitis[ICD10: K21.9] Diagnosis: Type 2 diabetes mellitus with hyperglycemia[ICD10: E11.65] Najma OG DO [facility] CPT-4: 87150 06/02/2019 ([id number]) NURSE/OUTPATIENT VISIT EST Diagnosis: Type 2 diabetes mellitus without complications[ICD10: E11.9] Diagnosis: Essential (primary) hypertension[ICD10: I10] Diagnosis: Mixed hyperlipidemia[ICD10: E78.2] Najma OG [facility] CPT-4: 29959 05/24/2019 ([id number]) OFFICE/OUTPATIENT VISIT EST Diagnosis: Essential (primary) hypertension[ICD10: I10] Diagnosis: Type 2 diabetes mellitus without complications[ICD10: E11.9] Diagnosis: Mixed hyperlipidemia[ICD10: E78.2] Najma OG [facility] CPT-4: 71118 01/31/2019 ([id number]) NURSE/OUTPATIENT VISIT EST Diagnosis: Mixed hyperlipidemia[ICD10: E78.2] Diagnosis: Type 2 diabetes mellitus without complications[ICD10: E11.9] Diagnosis: Essential (primary) hypertension[ICD10: I10] Diagnosis: Chronic kidney disease, unspecified[ICD10: N18.9] Najma OG DO [facility] CPT-4: 64107 01/26/2019 ([id number]) NURSE/OUTPATIENT VISIT EST Diagnosis: Chronic kidney disease, unspecified[ICD10: N18.9] Diagnosis: Essential (primary) hypertension[ICD10: I10] Najma GO DO [facility] CPT-4: 96776 09/30/2018 ([id number]) OFFICE/OUTPATIENT VISIT EST Diagnosis: Essential (primary) hypertension[ICD10: I10] Diagnosis: Type 2 diabetes mellitus without complications[ICD10: E11.9] Diagnosis: Mixed hyperlipidemia[ICD10: E78.2] Diagnosis: Unspecified kidney failure[ICD10: N19] Najma OG [facility] CPT-4: 43350 08/19/2018 ([id number]) NURSE/OUTPATIENT VISIT EST Diagnosis: Essential (primary) hypertension[ICD10: I10] Diagnosis: Type 1 diabetes mellitus with unspecified complications[ICD10: E10.8] Diagnosis: Mixed hyperlipidemia[ICD10: E78.2] Najma GODINEZ [employer] OG [facility] CPT-4: 68431 08/16/2018 ([id number]) OFFICE/OUTPATIENT VISIT EST Diagnosis: Essential (primary) hypertension[ICD10: I10] Diagnosis: Type 2 diabetes mellitus without complications[ICD10: E11.9] Diagnosis: Mixed hyperlipidemia[ICD10: E78.2] Najma GODINEZ [facility] CPT-4: 95528 05/10/2018 ([id number]) NURSE/OUTPATIENT VISIT EST Diagnosis: Essential (primary) hypertension[ICD10: I10] Diagnosis: Mixed hyperlipidemia[ICD10: E78.2] Diagnosis: Type 1 diabetes mellitus with unspecified complications[ICD10: E10.8] Najma OG [facility] CPT-4: 83778 05/05/2018 ([id number]) OFFICE/OUTPATIENT VISIT EST Diagnosis: Type 2 diabetes mellitus without complications[ICD10: E11.9] Diagnosis: Mixed hyperlipidemia[ICD10: E78.2] Diagnosis: Nicotine dependence, unspecified, uncomplicated[ICD10: F17.200] Diagnosis: Essential (primary) hypertension[ICD10: I10] Najma OG [facility] CPT-4: 57098 01/19/2018 ([id number]) NURSE/OUTPATIENT VISIT EST Diagnosis: Type 1 diabetes mellitus with unspecified complications[ICD10: E10.8] Diagnosis: Essential (primary) hypertension[ICD10: I10] Diagnosis: Male erectile disorder[ICD10: F52.21] Diagnosis: Encounter for screening for malignant neoplasm of prostate[ICD10: Z12.5] Najma LONGER [facility] CPT-4: 46264 01/13/2018 ([id number]) OFFICE/OUTPATIENT VISIT EST Diagnosis: Type 2 diabetes mellitus without complications[ICD10: E11.9] Diagnosis: Essential (primary) hypertension[ICD10: I10] Diagnosis: Mixed hyperlipidemia[ICD10: E78.2] Najma OG [facility] CPT-4: 16240 10/15/2017 ([id number]) NURSE/OUTPATIENT VISIT EST Diagnosis: Type 2 diabetes mellitus without complications[ICD10: E11.9] Diagnosis: Mixed hyperlipidemia[ICD10: E78.2] Diagnosis: Essential (primary) hypertension[ICD10: I10] Diagnosis: Glossitis[ICD10: K14.0] Najma THAKKAR [facility] CPT-4: 28700 10/06/2017 ([id number]) OFFICE/OUTPATIENT VISIT EST Diagnosis: Type 2 diabetes mellitus without complications[ICD10: E11.9] Diagnosis: Mixed hyperlipidemia[ICD10: E78.2] Diagnosis: Essential (primary) hypertension[ICD10: I10] Najma OG [facility] CPT-4: 82747 03/11/2017 ([id number]) OFFICE/OUTPATIENT VISIT EST Diagnosis: Type 1 diabetes mellitus with unspecified complications[ICD10: E10.8] Diagnosis: Mixed hyperlipidemia[ICD10: E78.2] Diagnosis: Essential (primary) hypertension[ICD10: I10] Diagnosis: Other fatigue[ICD10: R53.83] Najma OG [facility] CPT-4: 61868 03/05/2017 ([id number]) OFFICE/OUTPATIENT VISIT EST Diagnosis: Type 2 diabetes mellitus without complications[ICD10: E11.9] Diagnosis: Mixed hyperlipidemia[ICD10: E78.2] Diagnosis: Essential (primary) hypertension[ICD10: I10] Diagnosis: Nicotine dependence, unspecified, uncomplicated[ICD10: F17.200] Najma OG [facility] CPT-4: 34723 07/09/2016 ([id number]) OFFICE/OUTPATIENT VISIT EST Diagnosis: Type 1 diabetes mellitus with unspecified complications[ICD10: E10.8] Diagnosis: Mixed hyperlipidemia[ICD10: E78.2] Diagnosis: Essential (primary) hypertension[ICD10: I10] Najma OG [facility] CPT-4: 97557 06/16/2016 ([id number]) OFFICE/OUTPATIENT VISIT EST Diagnosis: Type 2 diabetes mellitus without complications[ICD10: E11.9] Diagnosis: Mixed hyperlipidemia[ICD10: E78.2] Diagnosis: Essential (primary) hypertension[ICD10: I10] Najma OG [facility] CPT-4: 61326 03/10/2016 ([id number]) OFFICE/OUTPATIENT VISIT EST Diagnosis: Type 1 diabetes mellitus with unspecified complications[ICD10: E10.8] Diagnosis: Mixed hyperlipidemia[ICD10: E78.2] Diagnosis: Essential (primary) hypertension[ICD10: I10] Najma OG [facility] CPT-4: 30399 03/06/2016 ([id number]) OFFICE/OUTPATIENT VISIT EST Diagnosis: Bitten or stung by nonvenomous insect and other nonvenomous arthropods, subsequent encounter[ICD10: W57.XXXD] Diagnosis: Insect bite (nonvenomous), right thigh, subsequent encounter[ICD10: S70.361D] Barbara OG [facility] CPT-4: 41277 11/2015 ([id number]) OFFICE/OUTPATIENT VISIT EST Diagnosis: Bitten or stung by nonvenomous insect and other nonvenomous arthropods, initial encounter[ICD10: W57.XXXA] Diagnosis: Insect bite (nonvenomous), right thigh, initial encounter[ICD10: S70.361A] Barbara OG [facility] CPT-4: 12692 09/2015 ([id number]) OFFICE/OUTPATIENT VISIT EST Diagnosis: Mixed hyperlipidemia[ICD10: E78.2] Diagnosis: Essential (primary) hypertension[ICD10: I10] Diagnosis: Type 2 diabetes mellitus without complications[ICD10: E11.9] Diagnosis: Encounter for immunization[ICD10: Z23] Diagnosis: Encounter for screening for malignant neoplasm of colon[ICD10: Z12.11] Diagnosis: Abnormal weight gain[ICD10: R63.5] aBrbara Brower MAREVELINA GRETCHEN Matilda OG [facility] CPT-4: 99711 09/06/2015 ([id number]) OFFICE/OUTPATIENT VISIT EST Diagnosis: Type 2 diabetes mellitus without complications[ICD10: E11.9] Diagnosis: Mixed hyperlipidemia[ICD10: E78.2] Diagnosis: Essential (primary) hypertension[ICD10: I10] Diagnosis: Encounter for screening for malignant neoplasm of prostate[ICD10: Z12.5] Diagnosis: Other fatigue[ICD10: R53.83] Najma MCARTHUR AmeenaMatilde KAHLIL [facility] CPT-4: 96882 08/31/2015 OFFICE/OUTPATIENT VISIT EST Diagnosis: Diarrhea, unspecified[ICD10: R19.7] Henrietta MCCOY Matilda LONG [facility] CPT-4: 28357 06/29/2015 OFFICE/OUTPATIENT VISIT EST Diagnosis: PNEUMOCOCCAL VACCINE[ICD10: Z23] Diagnosis: FLU VACCINE[ICD10: Z23] Diagnosis: Essential (primary) hypertension[ICD10: I10] Diagnosis: Mixed hyperlipidemia[ICD10: E78.2] Diagnosis: Type 1 diabetes mellitus with unspecified complications[ICD10: E10.8] Diagnosis: Actinic keratosis[ICD10: L57.0] Najma MCARTHUR AmeenaMatilde MERCEDES [facility] CPT-4: 81087 01/17/2015 ([id number]) OFFICE/OUTPATIENT VISIT EST Diagnosis: Type 2 diabetes mellitus without complications[ICD10: E11.9] Diagnosis: Impaired fasting glucose[ICD10: R73.01] Diagnosis: Mixed hyperlipidemia[ICD10: E78.2] Diagnosis: Essential (primary) hypertension[ICD10: I10] Najma MCARTHUR AmeenaMatilde KAHLIL [facility] CPT-4: 59355 01/12/2015 ([id number]) OFFICE/OUTPATIENT VISIT EST Diagnosis: - I - HYPERLIPIDEMIA NEC/NOS[ICD9: 272.4] Diagnosis: HYPERTENSION[ICD9: 401.9] Diagnosis: DM W/O COMPLICATION TYPE II[ICD9: 250.00] Diagnosis: ACTINIC KERATOSIS[ICD9: 702.0] Najma MCARTHUR Ameena Matilde MERCEDES [facility] CPT-4: 03660 09/19/2014 ([id number]) OFFICE/OUTPATIENT VISIT EST Diagnosis: HYPERLIPIDEMIA NEC/NOS[ICD9: 272.4] Diagnosis: HYPERTENSION[ICD9: 401.9] Diagnosis: IMPAIRED FASTING GLUCOSE[ICD9: 790.21] Diagnosis: MALAISE AND FATIGUE[ICD9: 780.79] Najma OG [facility] CPT-4: 71317 08/15/2014 ([id number]) OFFICE/OUTPATIENT VISIT EST Diagnosis: HYPERLIPIDEMIA NEC/NOS[ICD9: 272.4] Diagnosis: HYPERTENSION[ICD9: 401.9] Diagnosis: IMPAIRED FASTING GLUCOSE[ICD9: 790.21] Najma LONG [facility] CPT-4: 87841 12/14/2013 ([id number]) OFFICE/OUTPATIENT VISIT EST Diagnosis: Post herpetic neuralgia[ICD9: 053.19] Najma LONG [facility] CPT-4: 03880 10/17/2013 OFFICE/OUTPATIENT VISIT EST Diagnosis: Shingles[ICD9: 053.9] Diagnosis: Post herpetic neuralgia[ICD9: 053.19] Jeanie Briceño CLAUDE LONG [facility] CPT-4: 26213 09/23/2013 ([id number]) OFFICE/OUTPATIENT VISIT EST Diagnosis: HYPERTENSION[ICD9: 401.9] Diagnosis: HYPERLIPIDEMIA NEC/NOS[ICD9: 272.4] Diagnosis: IMPAIRED FASTING GLUCOSE[ICD9: 790.21] Najma LONG [facility] CPT-4: 33936 06/20/2013 ([id number]) OFFICE/OUTPATIENT VISIT EST Diagnosis: HYPERLIPIDEMIA NEC/NOS[ICD9: 272.4] Diagnosis: MALAISE AND FATIGUE[ICD9: 780.79] Diagnosis: ROUTINE MEDICAL EXAM[ICD9: V70.0] Diagnosis: HYPERTENSION[ICD9: 401.9] Diagnosis: IMPAIRED FASTING GLUCOSE[ICD9: 790.21] Najma LONG [facility] CPT-4: 10072 06/08/2013 ([id number]) OFFICE/OUTPATIENT VISIT EST Diagnosis: HYPERLIPIDEMIA NEC/NOS[ICD9: 272.4] Diagnosis: HYPERTENSION[ICD9: 401.9] Diagnosis: IMPAIRED FASTING GLUCOSE[ICD9: 790.21] Diagnosis: DIARRHEA[ICD9: 787.91] Najma MCARTHUR AmeenaMatilde BRITTNI Stallings [facility] CPT-4: 66971 11/25/2012 ([id number]) OFFICE/OUTPATIENT VISIT EST Diagnosis: HYPERLIPIDEMIA NEC/NOS[ICD9: 272.4] Diagnosis: HYPERTENSION[ICD9: 401.9] Diagnosis: IMPAIRED FASTING GLUCOSE[ICD9: 790.21] Diagnosis: MALAISE AND FATIGUE[ICD9: 780.79] Najma Heverlane Jenkins Matilda OG [facility] CPT-4: 96615 11/11/2012 OFFICE/OUTPATIENT VISIT EST Diagnosis: Fungal dermatitis[ICD9: 111.9] Diagnosis: Dry skin dermatitis[ICD9: 692.89] Henrietta Lubin FILI E AmeenaMatilde MERCEDES [facility] CPT-4: 79090 08/27/2012 ([id number]) OFFICE/OUTPATIENT VISIT EST Diagnosis: HYPERTENSION[ICD9: 401.9] Diagnosis: HYPERLIPIDEMIA NEC/NOS[ICD9: 272.4] Najma Heverlane MCCOY Matilda LONG [facility] CPT-4: 73863 05/11/2012 ([id number]) OFFICE/OUTPATIENT VISIT EST Diagnosis: HYPERLIPIDEMIA NEC/NOS[ICD9: 272.4] Diagnosis: HYPERTENSION[ICD9: 401.9] Diagnosis: ROUTINE MEDICAL EXAM[ICD9: V70.0] Najma Jenkins AmeenaMatilde MERCEDES [facility] CPT-4: 40399 05/04/2012 ([id number]) OFFICE/OUTPATIENT VISIT EST Diagnosis: HYPERTENSION[ICD9: 401.9] Diagnosis: HYPERLIPIDEMIA NEC/NOS[ICD9: 272.4] Diagnosis: IMPAIRED FASTING GLUCOSE[ICD9: 790.21] Najma CHAPMAN AmeenaMatilde MERCEDES [facility] CPT-4: 77839 12/11/2011 ([id number]) OFFICE/OUTPATIENT VISIT EST Diagnosis: HYPERLIPIDEMIA NEC/NOS[ICD9: 272.4] Diagnosis: HYPERTENSION[ICD9: 401.9] Diagnosis: IMPAIRED FASTING GLUCOSE[ICD9: 790.21] Najma LONGER [facility] CPT-4: 00302 10/29/2011 ([id number]) OFFICE/OUTPATIENT VISIT EST Diagnosis: HYPERTENSION[ICD9: 401.9] Najma ZARATER [facility] CPT-4: 65340 08/14/2011 ([id number]) OFFICE/OUTPATIENT VISIT EST Diagnosis: HYPERTENSION[ICD9: 401.9] Diagnosis: IMPAIRED FASTING GLUCOSE[ICD9: 790.21] Najma OG DO [facility] CPT-4: 45814 07/29/2011 ([id number]) OFFICE/OUTPATIENT VISIT EST Diagnosis: HYPERTENSION[ICD9: 401.9] Najma ZARATER [facility] CPT-4: 52833 07/23/2011 ([id number]) OFFICE/OUTPATIENT VISIT EST Diagnosis: HYPERTENSION[ICD9: 401.9] Najma ZARATER [facility] CPT-4: 71050 06/24/2011 OFFICE/OUTPATIENT VISIT EST Diagnosis: HYPERTENSION[ICD9: 401.9] Najma ZARATER [facility] CPT-4: 15946 05/20/2011 OFFICE/OUTPATIENT VISIT EST Diagnosis: HYPERTENSION[ICD9: 401.9] Najma SAMSON NDER DO [facility] CPT-4: 35672 04/15/2011 OFFICE/OUTPATIENT VISIT EST Diagnosis: HYPERLIPIDEMIA NEC/NOS[ICD9: 272.4] Diagnosis: IMPAIRED FASTING GLUCOSE[ICD9: 790.21] Najma LONGER [facility] CPT-4: 06534 03/18/2011 ([id number]) OFFICE/OUTPATIENT VISIT EST Najma OG DO [facility] CPT-4: 46697 07/30/2010 ([id number]) PREV VISIT, EST, AGE 40-64 Najma LONGER [facility] CPT-4: 49807 04/24/2010 Plan of Care Planned Activity Notes [...] : I10 06/02/2019 Appointment: Najma Og WPtel: [address] [place], [place] [phone] US FOLLOW UP 06/02/2019 Appointment: Najma Og WPtel: [address] [place] [phone] US LAB 05/24/2019 Visit Diagnosis Plan: Essential [...] : E78.2 01/31/2019 Appointment: Najma Og WPtel: [address] [place] [phone] US FOLLOW UP 01/31/2019 Appointment: Najma Og WPtel: [address] [place] [phone] US LAB 01/26/2019 Appointment: Najma Og WPtel: [address] [place] [phone] US LAB 09/30/2018 Visit Diagnosis Plan: Essential [...] : N19 08/19/2018 Appointment: Najma Og WPtel: [address] [place] [phone] US FOLLOW UP 08/19/2018 Appointment: Najma Og WPtel: [address] [place] [phone] US LAB 08/16/2018 Visit Diagnosis Plan: Type [...] 401.9 ICD-10 : I10 05/10/2018 Appointment: Najma Ogtel: [address] [place], [place] [phone] US FOLLOW UP 05/10/2018 Patient Education: Low Back Pain Exercises: Illustration Completed 05/10/2018 Patient Education: Low Back Pain Exercises Completed 05/10/2018 Appointment: Najma Ogtel: [address] [place] [phone] US LAB 05/05/2018 Visit Diagnosis Plan: Type [...] : E78.2 01/19/2018 Appointment: Najma Og WPtel: [address] [place] [phone] FOLLOW UP 01/19/2018 Patient Education: Patient Medication Summary Completed 01/19/2018 Appointment: Najma Og WPtel: [address] [place] [phone] LAB 01/13/2018 Patient Education: Patient Medication Summary [...] : E78.2 10/15/2017 Appointment: Najma Og WPtel: [address] [place], [place] [phone] FOLLOW UP 10/15/2017 Patient Education: Patient Medication Summary Completed 10/15/2017 Appointment: Najma Og WPtel: [address] [place] [phone] US LAB 10/06/2017 Patient Education: Patient Medication Summary Completed 10/06/2017 Visit Diagnosis Plan: Actinic keratosis Discussion: Cr yotherapy as above ICD-9 : 702.0 ICD-10 : L57.0 04/23/2017 Appointment: Najma Og WPtel: [address] [place] [phone] OFFICE SURGERY 04/23/2017 Patient Education: Patient Medication [...] : E11.9 03/11/2017 Appointment: Najma Og WPtel: [address] [place] [phone] US FOLLOW UP 03/11/2017 Patient Education: Patient Medication Summary Completed 03/11/2017 Appointment: Najma Og WPtel: [address] [place] [phone] US LAB 03/05/2017 Patient Education: Patient Medication Summary Completed 03/05/2017 Visit Diagnosis Plan: Type 2 diabetes mellitus without complications Discussion: Lab discussed Accuchecks daily Continue metformin Follow Up: 3 months ICD-9 : 250.00 ICD-10 : E11.9 07/09/2016 Visit Diagnosis Plan: Nicotine dependence, unspecified , uncomplicated Discussion: Smoking cessation ICD-9 : 305.1 ICD-10 : F17.200 07/09/2016 Visit Diagnosis Plan: Mixed hyperlipidemia Discussion: Lab discussed Continue current meds ICD-9 : 272.2 ICD-10 : E78.2 07/09/2016 Appointment: Najma Og WPtel: [address] [place], [place] [id number] [place] 07/08 lm ~sl 07/09 confirmed~sl FOLLOW UP 08/2016 Patient Education: Patient Medication Summary Completed 07/09/2016 Appointment: Najma Og [facility]Ptel[id number] [place] [facility] 06/16/2016 Patient Education: Patient Medication Summary Completed 06/16/2016 Visit Plan: Lab discussed Accuchecks maribel ly Lifestyle change for 3mos then check CMP, HbA1C in 3mos Has had flu and pneumonia shot 03/10/2016 Appointment: Najma Og WPtel: [address] [place] [address] 03/06 confirmed `sl FOLLOW UP 03/10/2016 Patient Education: Patient Medication Summary Completed 03/10/2016 Appointment: Najma Og WPtel: [address] [place] [address] LAB 03/06/2016 Patient Education: Patient Medication Summary Completed 03/06/2016 Referral: Donavon Keller WPtel: [id number] [place] Referral Completed 10/22/2015 Visit Plan: Tick bite area looks much be tter Continue current rxs and close monitoring Follow up if any new symptoms or worsening appearance 09/12/2015 Appointment: Barbara Brower [address] [place] [address] 09/10 confirmed~sl FOLLOW UP 09/12/2015 Patient Education: Patient Medication Summary Completed 09/12/2015 Visit Plan: Cover as above 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 topical steroids to calm down the inflammation(suspect most of redness is due to histamine response vs infection) Monitor closely Follow up in 2 days to recheck 09/10/2015 Appointment: Barbara Brower [address] [place] [address] ACUTE ILLNESS 09/10/2015 Patient Education: Patient Medication [...] consider shingles vaccine 09/06/2015 Appointment: Barbara Brower [address] [place] [address] FOLLOW UP 09/06/2015 Patient Education: Patient Medication Summary Completed 09/06/2015 Care Plan: Referral Order SNOMED-CT : [id number] Pending 09/06/2015 Appointment: Najma Og WPtel: [phone] [id number] [place] [facility] 08/31/2015 Patient Education: Patient Medication Summary Completed 08/31/2015 Visit Plan: Offered aggressive (KUB, IV fluids, Labs) vs. conservative (oral hydration, treat symptoms, watchful waiting). Elects for conservative + labs. CBC & CMP at [facility] Discussed needed oral hydration (preferably with sports drinks), 24 hour clear liquid followed by BRAT diet and advance as tolerated Discussed s/s of worsening, go to UC/ER. 06/29/2015 Appointment: Henrietta Lubin WPtel: [phone] [facility] ACUTE ILLNESS 06/29/2015 Patient Education: Patient Medication Summary Completed 06/29/2015 Visit Plan: Lab discussed Will keep meds the same Discussed diet/exercise at length Cryotherapy as above to AKs of arms Flu and Prevnar 13 given Trial of revatio per patient request for ED--warned of no nitrates Recheck 4mos 01/17/2015 Appointment: Najma Og WPtel: [address] [place], [place] [id number] 01/16 confirmed~sl FOLLOW UP 01/17/2015 Patient Education: Patient Medication Summary Completed 01/17/2015 Appointment: Najma Og WPtel: [address] [place] [id number] [place] LAB 01/12/2015 Patient Education: Patient Medication Summary Completed 01/12/2015 Visit Plan: Lab discussed Start accuchec ks daily Cryotherapy as above 09/19/2014 Appointment: Najma Og WPtel: [address] [place], [place] [phone] [place] 09/18 confirmed -mf FOLLOW UP 09/19/2014 Patient Education: Patient Medication Summary Completed 09/19/2014 Appointment: Najma Og WPtel: [address] [place], [place] [id number] [place] LAB 08/15/2014 Patient Education: Patient Medication Summary Completed 08/15/2014 Appointment: Najma Og WPtel: [address] [place] [address] ACUTE ILLNESS 12/14/2013 Patient Education: Patient Medication Summary Completed 12/14/2013 Visit Plan: Patient using tylenol prn pa in Discussed possible shingles shot for booster in 9-12mos 10/17/2013 Appointment: Najma Og WPtel: [address] [place] [address] FOLLOW UP 10/17/2013 Patient Education: Patient Medication Summary Completed 10/17/2013 Appointment: Jeanie Briceño WPtel: [address] [place] [address] ACUTE ILLNESS 09/23/2013 Patient Education: Patient Medication Summary Completed 09/23/2013 Appointment: Najma Og WPtel: [address] [place] [address] BP CHECK 07/22/2013 Patient Education: Patient Medication Summary Completed 07/22/2013 Visit Plan: Lab discussed Discussed swit arun amlodopine to beta slim to see if helps with tremor BP check in 1mo 06/20/2013 Appointment: Najma Og WPtel: [address] [place] [address] 06/17 no answer FOLLOW UP 06/20/2013 Patient Education: Patient Medication Summary Completed 06/20/2013 Appointment: Najma Og WPtel: [address] [place], [place] [phone] [place] LAB 06/08/2013 Patient Education: Patient Medication Summary Completed 06/08/2013 Visit Plan: BRAT diet and yogurt and gat orade Lab discussed Continue current meds Spot checks on BS 11/25/2012 Appointment: Najma Og WPtel: [address] [place], [place] [id number] 11/24 vm FOLLOW UP 11/25/2012 Patient Education: Patient Medication Summary Completed 11/25/2012 Appointment: Najma Og WPtel: [address] [place] [id number] LAB 11/11/2012 Patient Education: Patient Medication Summary Completed 11/11/2012 Appointment: Henrietta Lubin WPtel: [address] [place], [place] [id number] WORK IN 08/27/2012 Patient Education: Patient Medication Summary Completed 08/27/2012 Visit Plan: Pt going to get new home BP moniter Continue crestor and restart fish oil and will check fasting lab in 6mos Lab results discussed 05/11/2012 Appointment: Najma Og WPtel: [address] [place] [id number] 05/10 FOLLOW UP 05/11/2012 Patient Education: Patient Medication Summary Completed 05/11/2012 Appointment: Najma Og WPtel: [address] [place] [id number] LAB 05/04/2012 Patient Education: Patient Medication Summary Completed 05/04/2012 Visit Plan: 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 and forehead 03/02/2012 Appointment: Najma Og WPtel: [address] [place], [place] [phone] 03/01 OFFICE SURGERY 03/02/2012 Patient Education: Patient Medication Summary Completed 03/02/2012 Visit Plan: Labs discussed--recheck lab end of Feb/mar Continue current meds and continue to moniter BS daily and BP 1-2 times a week Plan on cryotherapy this fall so can wear longsleeves after procedure See urology 12/11/2011 Appointment: Najma Og WPtel: [address] [place] [id number] FOLLOW UP 12/11/2011 Patient Education: Patient Medication Summary Completed 12/11/2011 Appointment: Najma Og WPtel: [address] [place], [place] [phone] LAB 10/29/2011 Patient Education: Patient Medication Summary Completed 10/29/2011 Appointment: Najma Og WPtel: [address] [place] [place] [id number] BP CHECK 08/14/2011 Patient Education: Patient Medication Summary Completed 08/14/2011 Appointment: Najma Og WPtel: [address] [place] [address] ACUTE ILLNESS 07/29/2011 Patient Education: Patient Medication Summary Completed 07/29/2011 Appointment: Najma Og WPtel: [address] [place] [address] BP CHECK 07/23/2011 Patient Education: Patient Medication Summary Completed 07/23/2011 Appointment: Najma Og WPtel: [address] [place] [address] BP CHECK 06/24/2011 Patient Education: Patient Medication Summary Completed 06/24/2011 Appointment: Najma Og WPtel: [address] [place], [place] [phone] BP CHECK 05/20/2011 Patient Education: Patient Medication Summary Completed 05/20/2011 Appointment: Najma Og WPtel: [address] [place], [place] [phone] BP CHECK 04/29/2011 Patient Education: Patient Medication Summary Completed 04/29/2011 Appointment: Najma Og WPtel: [address] [place], [place] [id number] BP CHECK 04/15/2011 Patient Education: Patient Medication Summary Completed 04/15/2011 Visit Plan: Continue current meds Add fi sh oil 1gm daily Glucometer given to use for accuchecks prn 03/18/2011 Appointment: Najma Og WPtel: [address] [place], [place] [phone] FOLLOW UP 03/18/2011 Patient Education: Patient Medication Summary Completed 03/18/2011 Appointment: Najma Og WPtel: [address] [place], [place] [phone] [place] LAB 03/14/2011 Patient Education: Patient Medication Summary Completed 03/14/2011 Appointment: Najma Og WPtel: [address] [place] [phone] [place] LAB 11/11/2010 Appointment: Najma Og WPtel: [address] [place], [place] [phone] [place] UA 11/11/2010 Patient Education: Patient Medication Summary Completed 11/11/2010 Appointment: Najma Og WPtel: [address] [place], [place] [phone] LAB 10/29/2010 Patient Education: Patient Medication Summary Completed 10/29/2010 Appointment: Najma Og WPtel: [address] [place] [address] FOLLOW UP 07/30/2010 Patient Education: Patient Medication Summary Completed 07/30/2010 Appointment: Najma Og WPtel: [address] [place] [address] LAB 07/23/2010 Patient Education: Patient Medication Summary Completed 07/23/2010 Appointment: Najma Og WPtel: [address] [place] [id number] LAB 04/26/2010 Patient Education: Patient Medication Summary Completed 04/26/2010 Visit Plan: Add PSA to lab Restart Crest or at 10mg daily Trial of Wellbutrin to aid in smoking cessation Check Lipids and LFTs in 3mos 04/24/2010 Appointment: Najma Og WPtel: [address] [place], [place] [phone] [place] FOLLOW UP 04/24/2010 Patient Education: Patient Medication Summary Completed 04/24/2010 Appointment: Najma Og WPtel: [phone] [id number] [place] 04/19/2010 Patient Education: Patient Medication Summary Completed 04/19/2010 Referral: Donavon Keller WPtel: [facility] [place] [id number] [place] Referral Completed Instructions Comment . Lab [...] labs. CBC & CMP at [facility] Discussed needed oral hydration (preferably with sports [...] discussed--recheck lab end of Nov /first of Dec Continue current meds and continue to moniter [...]
--- OUTSIDE RECORDS SUMMARY | 2019-10-14 22:37 | XMS REPORT | CCD ---
Author Author Inocente Og D.O. Organization [facility] Address [address] [place] [address] Phone Care Team Providers Care Chief Of Vital Statistics Name Role Phone Najma Og D.O. PP Unavailable CCM Unavailable Summary Purpose Interface Exchange Insurance Providers Payer name Policy type / Coverage type Covered republican ID Effective Begin Date Effective End Date [employer] MEDICARE Medicare Part B [id number] Unknown [facility] Medicare Part B [id number] Un known Family history Father Diagnosis Age At Onset Diabetes mellitus Type 2 Unknown Myocardial infarction Unknown Brother Diagnosis Age At Onset Diabetes mellitus Type 2 Unknown Mother Diagnosis Age At Onset Osteoarthritis Unknown Cerebrovascular disease Unknown Social History Social History Element Codes Description Effective Dates Tobacco history SNOMED CT: 397629025 Never smoker 12/21/2014 Marital status Unknown 07/30/2010 [...] Instructions fenofibrate micronized 134 mg capsule RxNorm: 679571 TA KE 1 CAPSULE BY MOUTH ONCE DAILY FOR TRIGLYCERIDES 07/08/2019 10/05/2019 Active amlodipine 5 mg tablet RxNorm: 225421 TAKE 1 TABLET BY MOUTH ON CE DAILY 06/16/2019 09/13/2019 Active metformin ER 500 mg tablet,extended release 24 hr RxNorm: 86 0975 TAKE 1 TABLET BY MOUTH ONCE DAILY 06/10/2019 09/07/2019 Active propranolol ER 80 mg capsule,24 hr,extended release RxNorm: 797205 TAKE 1 CAPSULE BY MOUTH ONCE DAILY 06/10/2019 09/07/2019 Active Vitamin D3 25 mcg (1,000 unit) capsule RxNorm: 728747 1 Capsule(s) Oral two times a day 06/02/2019 No Stop Date Active turmeric 400 mg capsule RxNorm: 1 Capsule(s) Oral QD 06/02/2019 No Stop Date Active Fish Oil 120 mg-180 mg-500 mg capsule RxNorm: 2 Capsule(s) Ora l QD 06/02/2019 No Stop Date Active 16.2 mg-0.1037 mg-0.0194 mg tablet RxNorm: 0791060 1 Tablet(s) Oral four times a day as needed abdominal pain/diarrhea 06/02/2019 No Stop D ate Active fenofibrate micronized 134 mg capsule RxNorm: 490829 1 Capsule(s) Oral QD for triglycerides 04/14/2019 07/07/2019 Inactive amlodipine 5 mg tablet RxNorm: 934851 TAKE 1 TABLET BY MOUTH ON CE DAILY 03/22/2019 06/15/2019 Inactive metformin ER 500 mg tablet,extended release 24 hr RxNorm: 86 0975 TAKE 1 TABLET BY MOUTH ONCE DAILY 03/15/2019 06/09/2019 Inactive propranolol ER 80 mg capsule,24 hr,extended release RxNorm: 945848 TAKE 1 CAPSULE BY MOUTH ONCE DAILY 03/15/2019 06/09/2019 Inactive amlodipine 5 mg tablet RxNorm: 335510 1 Tablet(s) PO QD 12/27/2018 Inactive fenofibrate micronized 134 mg capsule RxNorm: 807691 TA KE 1 CAPSULE BY MOUTH ONCE DAILY FOR TRIGLYCERIDES 10/11/2018 04/13/2019 Inactive amlodipine 5 mg tablet RxNorm: 310863 1 Tablet(s) PO QD 09/30/2018 Inactive metformin ER 500 mg tablet,extended release 24 hr RxNorm: 86 0975 TAKE 1 TABLET BY MOUTH ONCE DAILY 09/21/2018 03/14/2019 Inactive propranolol ER 80 mg capsule,24 hr,extended release RxNorm: 198030 TAKE 1 CAPSULE BY MOUTH ONCE DAILY 09/21/2018 03/14/2019 Inactive amlodipine 5 mg tablet RxNorm: 363655 1 Tablet(s) PO QD 08/25/2018 Inactive amlodipine 5 mg tablet RxNorm: 007172 1 Tablet(s) PO QD 08/25/2018 Inactive lisinopril 40 mg tablet RxNorm: 193893 TAKE 1 TABLET BY MOUTH O NCE DAILY 07/21/2018 08/24/2018 Inactive fenofibrate micronized 134 mg capsule RxNorm: 001148 TA KE 1 CAPSULE BY MOUTH ONCE DAILY FOR TRIGLYCERIDES 07/12/2018 10/10/2018 Inactive propranolol ER 80 mg capsule,24 hr,extended release RxNorm: 751732 TAKE 1 CAPSULE BY MOUTH ONCE DAILY 06/21/2018 09/20/2018 Inactive lisinopril 40 mg tablet RxNorm: 097976 TAKE 1 TABLET BY MOUTH O NCE DAILY 04/26/2018 07/20/2018 Inactive metformin ER 500 mg tablet,extended release 24 hr RxNorm: 717754 1 Tablet(s) QD 03/31/2018 09/20/2018 Inactive lisinopril 40 mg tablet RxNorm: 933349 TAKE 1 TABLET BY MOUTH O NCE DAILY 01/28/2018 04/25/2018 Inactive Vitamin D3 5,000 unit tablet RxNorm: 234890 1 Tablet(s) PO QD 01/1908/18/2018 Inactive fenofibrate micronized 134 mg capsule RxNorm: 953198 1 Capsule(s) PO QD for triglycerides 01/19/2018 07/11/2018 Inactive metformin ER 500 mg tablet,extended release 24 hr RxNorm: 947164 1 Tablet(s) QD 12/31/2017 03/30/2018 Inactive metformin ER 500 mg tablet,extended release 24 hr RxNorm: 939182 Tablet(s) 12/30/2017 12/30/2017 Inactive propranolol ER 80 mg capsule,24 hr,extended release RxNorm: 123283 1 Capsule(s) PO QD 12/17/2017 06/14/2018 Inactive metformin ER 500 mg tablet,extended release 24 hr RxNorm: 86 0975 1 Tablet(s) PO QD DUE FOR LABS AND APPT 12/02/2017 12/30/2017 Inactive Crestor 10 mg tablet RxNorm: 711135 TAKE ONE TABLET BY MOUTH ON CE DAILY 11/01/2017 01/18/2018 Inactive lisinopril 40 mg tablet RxNorm: 598739 TAKE ONE TABLET BY MOUTH ONCE DAILY [...] ER 80 mg capsule,24 hr,extended release RxNorm: 437821 1 Capsule(s) PO QD DUE FOR APPT 09/08/2017 12/17/2017 Inactive Crestor 10 mg tablet RxNorm: 063009 1 Tablet(s) PO QD T CHELSI ONE TABLET BY MOUTH DAILY 03/11/2017 09/06/2017 Inactive propranolol ER 80 mg capsule,24 hr,extended release RxNorm: 799151 1 Capsule(s) PO QD TAKE ONE CAPSULE BY MOUTH DAILY - REPLACES AMLODOPINE 03/11/2017 09/08/2017 Inactive metformin ER 500 mg tablet,extended release 24 hr RxNorm: 86 0975 1 Tablet(s) PO QD 03/11/2017 09/08/2017 Inactive lisinopril 40 mg tablet RxNorm: 340102 1 Tablet(s) PO QD 03/11/2017 0 09/06/2017 Inactive lisinopril 40 mg tablet RxNorm: 548166 1 Tablet(s) PO QD 02/16/2017 1 05/11/2016 Inactive metformin ER 500 mg tablet,extended release 24 hr RxNorm: 86 0975 1 Tablet(s) PO QD Due for labs and follow up before further refills 02/16/2017 017 Inactive propranolol ER 80 mg capsule,24 hr,extended release RxNorm: 194978 Capsule(s) TAKE ONE CAPSULE BY MOUTH DAILY - REPLACES AMLODOPINE 11/19/20162016 Inactive lisinopril 40 mg tablet RxNorm: 516093 1 Tablet(s) PO QD 11/17/2016 1 04/18/2016 Inactive metformin ER 500 mg tablet,extended release 24 hr RxNorm: 86 0975 1 Tablet(s) PO QD 11/17/2016 02/16/2017 Inactive lisinopril 40 mg tablet RxNorm: 674237 1 Tablet(s) PO Q D TAKE ONE TABLET BY MOUTH DAILY 08/19/2016 11/17/2016 Inactive metformin ER 500 mg tablet,extended release 24 hr RxNorm: 86 0975 Tablet(s) TAKE ONE TABLET BY MOUTH DAILY 08/19/2016 11/16/2016 Inactive propranolol ER 80 mg capsule,24 hr,extended release RxNorm: 055428 Capsule(s) TAKE ONE CAPSULE BY MOUTH DAILY - REPLACES AMLODOPINE 08/19/20162016 Inactive Crestor 10 mg tablet RxNorm: 043233 TAKE ONE TABLET BY MOUTH DAILY 06/16/2016 03/10/2017 Inactive lisinopril 40 mg tablet RxNorm: 438627 1 Tablet(s) PO Q D TAKE ONE TABLET BY MOUTH DAILY 05/23/2016 08/18/2016 Inactive metformin ER 500 mg tablet,extended release 24 hr RxNorm: 86 0975 TAKE ONE TABLET BY MOUTH DAILY 05/23/2016 08/19/2016 Inactive propranolol ER 80 mg capsule,24 hr,extended release RxNorm: 350020 TAKE ONE CAPSULE BY MOUTH DAILY - REPLACES AMLODOPINE 05/23/2016 08/19/2016 [place] [facility] Crestor 10 mg tablet RxNorm: 963957 TAKE ONE TABLET BY MOUTH DAILY 03/31/2016 06/15/2016 Inactive metformin ER 500 mg tablet,extended release 24 hr RxNorm: 86 0975 TAKE ONE TABLET BY MOUTH DAILY 02/19/2016 05/22/2016 Inactive propranolol ER 80 mg capsule,24 hr,extended release RxNorm: 812404 TAKE ONE CAPSULE BY MOUTH DAILY - REPLACES AMLODOPINE 11/23/2015 05/20/2016 [place] [facility] metformin ER 500 mg tablet,extended release 24 hr RxNorm: 86 0975 TAKE ONE TABLET BY MOUTH DAILY 11/08/2015 02/05/2016 Inactive Bactroban Nasal 2 % ointment RxNorm: 889248 Apply topic ally to affected area twice daily 09/10/2015 03/09/2016 Inactive Vibramycin 100 mg capsule RxNorm: 706360 1 Capsule(s) PO BID 201509/23/2015 Inactive lisinopril 40 mg tablet RxNorm: 962459 1 Tablet(s) PO Q D TAKE ONE TABLET BY MOUTH DAILY 08/27/2015 02/22/2016 Inactive metformin ER 500 mg tablet,extended release 24 hr RxNorm: 86 0975 TAKE ONE TABLET BY MOUTH DAILY 08/06/2015 11/03/2015 Inactive Levsin/SL 0.125 mg sublingual tablet RxNorm: 0040912 1 T ablet(s) SL Q4H as needed for stomach cramps 06/29/2015 07/03/2015 Inactive lisinopril 40 mg tablet RxNorm: 501930 Tablet(s) TAKE ONE TABLE T BY MOUTH DAILY 06/07/2015 08/26/2015 Inactive propranolol ER 80 mg capsule,24 hr,extended release RxNorm: 716070 TAKE ONE CAPSULE BY MOUTH DAILY - REPLACES AMLODOPINE 05/30/2015 11/22/2015 [place] [facility] metformin ER 500 mg tablet,extended release 24 hr RxNorm: 86 0975 1 Tablet(s) PO QD 05/10/2015 08/05/2015 Inactive Crestor 10 mg tablet RxNorm: 064197 TAKE ONE TABLET BY MOUTH DAILY 04/18/2015 10/14/2015 Inactive metformin ER 500 mg tablet,extended release 24 hr RxNorm: 86 0975 TAKE ONE TABLET BY MOUTH DAILY 02/07/2015 05/10/2015 Inactive sildenafil 20 mg tablet RxNorm: 403828 1 Tablet(s) PO QD 01/17/2015 1 04/17/2014 Inactive propranolol ER 80 mg capsule,24 hr,extended release RxNorm: 149566 1 Capsule(s) PO QD replaces amlodopine 11/28/2014 05/26/2015 Inactive [[facility] -- BIN:[id number], PCN: [id number], Group: [id number], ID# [id number], Process claim through [employer], for questions: . THIS IS NOT INSURANCE.] lisinopril 40 mg tablet RxNorm: 335322 TAKE ONE TABLET BY MOUTH DAILY 11/16/2014 06/07/2015 Inactive lisinopril 40 mg tablet RxNorm: 728868 1 Tablet(s) PO QD 08/21/2014 0 11/15/2014 Inactive [AttnRPh: Saving apply/adjudicate RxGRP: [id number] RxBIN:[id number] RxPCN: ID#:[id number]] lisinopril 40 mg tablet RxNorm: 804715 1 Tablet(s) PO Q D NEEDS SEEN FOR APPOINTMENT 07/14/2014 08/21/2014 Inactive [AttnRPh: Saving apply/adjudicate RxGRP:SG20 RxBIN:[id number] RxPCN: ID#:[id number]] Crestor 10 mg tablet RxNorm: 996172 TAKE ONE TABLET BY MOUTH EV EILEEN07/06/2014 01/01/2015 Inactive metformin ER 500 mg tablet,extended release 24 hr RxNorm: 86 0975 1 Tablet(s) QD TAKE ONE TABLET BY MOUTH ONCE A DAY 06/09/2014 12/05/2014 Inactive propranolol ER 80 mg capsule,24 hr,extended release RxNorm: 410262 1 Capsule(s) PO QD replaces amlodopine 06/05/2014 11/28/2014 Inactive [[facility] -- BIN:[id number], PCN: [id number], Group: [id number], ID# [id number], Process claim through [employer], for questions: . THIS IS NOT INSURANCE.] propranolol ER 80 mg capsule,24 hr,extended release RxNorm: 424709 1 Capsule(s) PO QD replaces amlodopine 03/07/2014 06/05/2014 Inactive [[facility] -- BIN:429092, PCN: [id number], Group: [id number], ID# [id number], Process claim through [employer], for questions: . THIS IS NOT INSURANCE.] metformin ER 500 mg tablet,extended release 24 hr RxNorm: 86 0975 TAKE ONE TABLET BY MOUTH ONCE A DAY 12/15/2013 06/09/2014 Inactive propranolol ER 80 mg capsule,24 hr,extended release RxNorm: 008077 1 Capsule(s) PO QD replaces amlodopine 12/09/2013 03/07/2014 Inactive [[facility] -- BIN:[id number], PCN: [id number], Group: [id number], ID# [id number], Process claim through [employer], for questions: . THIS IS NOT INSURANCE.] acyclovir 800 mg tablet RxNorm: 878955 1 Tablet(s) PO QID 09/23/2013 09/29/2013 Inactive gabapentin 300 mg capsule RxNorm: 441404 1 Capsule(s) PO BID 201310/07/2013 Inactive metformin ER 500 mg tablet,extended release 24 hr RxNorm: 86 0975 1 Tablet(s) PO QD 09/19/2013 12/14/2013 Inactive propranolol ER 80 mg capsule,24 hr,extended release RxNorm: 029781 1 Capsule(s) PO QD replaces amlodopine 09/15/2013 12/09/2013 Inactive metformin ER 500 mg 24 hr tablet,extended release RxNorm: 86 0975 1 Tablet(s) PO QD 09/15/2013 09/18/2013 Inactive lisinopril 40 mg tablet RxNorm: 476716 1 Tablet(s) PO QD 07/19/2013 0 07/14/2014 Inactive Crestor 10 mg tablet RxNorm: 161258 Tablet(s) PO TAKE O NE TABLET BY MOUTH EVERY DAY 07/12/2013 07/05/2014 Inactive propranolol ER 80 mg capsule,24 hr,extended release RxNorm: 836723 1 Capsule(s) PO QD replaces amlodopine 06/20/2013 09/15/2013 Inactive triamcinolone acetonide 0.1 % topical ointment RxNorm: 56632 36 Application TOP BID 06/20/2013 06/26/2013 Inactive Crestor 10 mg tablet RxNorm: 642229 1 Tablet(s) PO QD 04/18/201310/2013 Inactive Viagra 100 mg tablet RxNorm: 089599 1 Tablet(s) PO as directed 01/0508/18/2018 Inactive TAKE ONE TABLET BY MOUTH DIRECTED Crestor 10 mg tablet RxNorm: 336047 1 Tablet(s) PO QD 01/17/201304/06 Inactive metformin ER 500 mg tablet,extended release 24 hr RxNorm: 86 0975 1 Tablet(s) PO QD TAKE ONE TABLET BY MOUTH EVERY DAY 12/23/2012 09/15/2013 Inactive triamcinolone acetonide 0.1 % topical ointment RxNorm: 49853 36 Application TOP BID 08/27/2012 09/02/2012 Inactive ketoconazole 2 % topical cream RxNorm: 696283 1 Application TOP QAM 08/27/2012 09/02/2012 Inactive lisinopril 40 mg tablet RxNorm: 506926 1 Tablet(s) PO QD 07/21/2012 0 07/15/2013 Inactive Crestor 10 mg tablet RxNorm: 318503 1 Tablet(s) PO QD 07/21/201210/04 Inactive amlodipine 10 mg tablet RxNorm: 008580 1 Tablet(s) PO QHS 07/21/2012 07/15/2013 Inactive metformin ER 500 mg tablet,extended release 24 hr RxNorm: 86 0977 Tablet(s) PO TAKE ONE TABLET BY MOUTH EVERY DAY 03/31/2012 12/22/2012 Inactive lisinopril 40 mg tablet RxNorm: 224904 1 Tablet(s) PO QD 07/29/2011 0 07/20/2012 Inactive amlodipine 10 mg tablet RxNorm: 137122 1 Tablet(s) PO QHS 07/29/2011 07/20/2012 Inactive amlodipine 10 mg Tab RxNorm: 140940 1 Tablet(s) PO QHS 07/29/2011 Inactive Viagra 100 mg tablet RxNorm: 058828 1 Tablet(s) PO as directed 07/0601/24/2013 Inactive TAKE ONE TABLET BY MOUTH DIRECTED Crestor 10 mg tablet RxNorm: 503476 1 Tablet(s) PO QD 07/29/201107/05 Inactive Norvasc 5 mg Tab RxNorm: 007329 1 Tablet(s) PO QD 07/16/2011 07/28/19 12 Inactive Norvasc 5 mg Tab RxNorm: 993877 1 Tablet(s) PO QD 06/26/2011 07/15/19 12 Inactive lisinopril 40 mg Tab RxNorm: 268553 1 Tablet(s) PO QD 05/13/201107/06 Inactive metformin ER 500 mg tablet,extended release 24 hr RxNorm: 86 0977 1 Tablet(s) PO QD 03/18/2011 07/28/2011 Inactive Crestor 10 mg Tab RxNorm: 163531 1 Tablet(s) PO QHS 01/27/20112011 Inactive metformin ER 500 mg 24 hr Tab RxNorm: 437383 1 Tablet(s) PO QD 11/0403/17/2011 Inactive Viagra 100 mg Tab RxNorm: 754744 Tablet(s) PO TAKE ON E TABLET BY MOUTH DIRECTED 08/26/2010 07/28/2011 Inactive metformin ER 500 mg 24 hr Tab RxNorm: 228669 1 Tablet(s) PO QD 07/0611/18/2010 Inactive Crestor 10 mg Tab RxNorm: 008762 1 Tablet(s) PO QHS 07/30/20102010 Inactive Crestor 10 mg Tab RxNorm: 182019 1 Tablet(s) PO QHS 05/20/20102010 Inactive Wellbutrin SR 150 mg Tab RxNorm: 754967 1 Tablet(s) PO QAM 04/24/19 11 07/22/2010 Inactive Multivitamin And Mineral tablet RxNorm: 1 Tablet(s) PO QD No Start Date Active FreeStyle Lite Strips RxNorm: 1 Unit Dose Miscel laneous AC & HS check blood sugar AC and HS No Start Date Active Co Q-10 200 mg capsule RxNorm: 857318 1 Capsule(s) PO QD No Start Date Active lancets RxNorm: 1 Milliliter(s) Miscellaneous AC & HS No Start Robert e Active Vitamin D3 4,000 unit capsule RxNorm: 4109957 1 Capsule(s) PO QD No Start Date 07/08/2016 Inactive Fish Oil 360 mg-1,200 mg capsule RxNorm: 326300 2 Capsule(s) PO QD No Start Date 01/30/2019 Inactive hydrocodone 5 mg-acetaminophen 325 mg tablet RxNorm: 230166 1 Tablet(s) PO Q4H as needed for severe pain No Start Date 12/30/2015 Inactive Xanax 0.25 mg tablet RxNorm: 552773 1/2 Tablet(s) PO PRN for se andrea stress No Start Date 07/08/2016 Inactive lisinopril 40 mg Tab RxNorm: 182293 1 Tablet(s) PO QD No Start Date 0 05/12/2011 Inactive Fish Oil 1,000 mg capsule RxNorm: 1 Capsule(s) PO QD No Start Date 09/18/2014 Inactive naproxen 500 mg Tab RxNorm: 782211 1 Tablet(s) PO BID No Start Date 0 07/28/2011 Inactive aspirin 81 mg tablet RxNorm: 606427 1 Tablet(s) PO QD No Start Date 0 05/09/2018 Inactive Crestor 10 mg Tab RxNorm: 967958 1 Tablet(s) PO QD No Start Date 07/06 Inactive Crestor 5 mg tablet RxNorm: 573424 1 Tablet(s) PO QD No Start Date Inactive Fish Oil Oral RxNorm: Oral No Start Date 09/18/2014 Inactive Viagra 100 mg Tab RxNorm: 820117 1 Tablet(s) PO as directed No Star [...] Code Item Item Code Result Date S vic Location GLYCOSYLATED HEMOGLOBIN TEST 41557 Hgb A1c 10998-5 6.7 % 0 05/24/2019 Unknown [facility] 84612 AST 21 U/L 2019 Unknown [facility] 91045 ALT 26 U/L 2019 Unknown COMPREHENSIVE MET[facility]OLIC 19160 BUN 14 mg/dL 2019 Unknown COMPREHENSIVE MET[facility]OLIC 01716 ALBUMIN 4.4 g/dL 2019 Unknown COMPREHENSIVE METABOLIC 20496 CHLORIDE 102 mmol/L 05/24 Unknown COMPREHENSIVE METABOLIC 18515 Bili Total 0.4 mg/dL 05/24 Unknown COMPREHENSIVE METABOLIC 06823 ALK PHOS 55 U/L 2019 Unknown COMPREHENSIVE METABOLIC 11978 SODIUM 139 mmol/L 05/24 Unknown COMPREHENSIVE METABOLIC 01206 CREATININE 1.28 mg/dL 05/07 Unknown COMPREHENSIVE METABOLIC 93973 CALCIUM 9.7 mg/dL 2019 Unknown COMPREHENSIVE METABOLIC 42065 POTASSIUM 4.7 mmol/L 05/24 Unknown COMPREHENSIVE METABOLIC 42918 Total Protein 6.8 g/dL Unknown COMPREHENSIVE METABOLIC 63431 Glucose 130 mg/dL 2019 Unknown COMPREHENSIVE METABOLIC 95597 Bicarbonate 29 mmol/L 05/07 Unknown COMPREHENSIVE METABOLIC 29676 AGAP 8 mmol/L 2019 Unknown MEAN GLUC 8459494 Calc Mean Gluc 146 mg/dL 05/24/2019 Unkn own GFR CALC [id number] GFR Non Afr Amr 56 mL/min 05/24/2019 Unk nown GFR CALC [id number] GFR Afr Amr >60 mL/min 05/24/2019 Unknow n MEAN GLUC 0090218 Calc Mean Gluc 140 mg/dL 01/26/2019 Unkn own GLYCOSYLATED HEMOGLOBIN TEST 72396 Hgb A1c 88370-6 6.5 % 1 Unknown COMPREHENSIVE METABOLIC 84659 AST 17 U/L 2018 Unknown COMPREHENSIVE METABOLIC 68294 ALT 19 U/L 2018 Unknown COMPREHENSIVE METABOLIC 27251 BUN 19 mg/dL 2018 Unknown COMPREHENSIVE METABOLIC 46694 ALBUMIN 4.3 g/dL 2018 Unknown COMPREHENSIVE METABOLIC 93832 CHLORIDE 103 mmol/L 01/26 Unknown COMPREHENSIVE METABOLIC 65688 Bili Total 0.6 mg/dL 01/26 Unknown COMPREHENSIVE METABOLIC 80221 ALK PHOS 60 U/L 2018 Unknown COMPREHENSIVE METABOLIC 39100 SODIUM 140 mmol/L 01/26 Unknown COMPREHENSIVE METABOLIC 97760 CREATININE 1.21 mg/dL 01/05 Unknown COMPREHENSIVE METABOLIC 24818 CALCIUM 9.6 mg/dL 2018 Unknown COMPREHENSIVE METABOLIC 70710 POTASSIUM 4.5 mmol/L 01/26 Unknown COMPREHENSIVE METABOLIC 53526 Total Protein 6.7 g/dL Unknown COMPREHENSIVE METABOLIC 38098 Glucose 111 mg/dL 2018 Unknown COMPREHENSIVE METABOLIC 54676 Bicarbonate 28 mmol/L 01/05 Unknown COMPREHENSIVE METABOLIC 02158 AGAP 9 mmol/L 2018 Unknown COMPLETE BLOOD COUNT 3788486 WBC 10.7 10e9/L 019 Unknown COMPLETE BLOOD COUNT [id number] RBC 4.38 10e12/L 2018 Unknown COMPLETE BLOOD COUNT [id number] HEMOGLOBIN 13.7 g/dL 01/27/20 19 Unknown COMPLETE BLOOD COUNT 7771210 HEMATOCRIT 42.0 % 01/27/20 19 Unknown COMPLETE BLOOD COUNT [id number] MCV 95.9 fL 9 Unknown COMPLETE BLOOD COUNT [id number] MCH 31.3 pg 9 Unknown COMPLETE BLOOD COUNT 5354261 MCHC 32.6 g/dL 9 Unknown COMPLETE BLOOD COUNT [id number] PLATELET COUNT 232 10e9/L Unknown COMPLETE BLOOD COUNT 7979701 Mean Plt Volume 11.4 fL Unknown COMPLETE BLOOD COUNT 7436986 Neut Auto 68.7 % 9 Unknown COMPLETE BLOOD COUNT [id number] Lymph Auto 21.2 % 01/27/20 19 Unknown COMPLETE BLOOD COUNT 2005725 [place] Auto 8.1 % 9 Unknown COMPLETE BLOOD COUNT [id number] RDW 14.1 % 9 Unknown COMPLETE BLOOD COUNT [id number] Eos Auto 1.8 % 9 Unknown COMPLETE BLOOD COUNT [id number] Baso Auto 0.2 % 9 Unknown COMPLETE BLOOD COUNT 2255177 Neutrophil Abs 7.35 10e9/L Unknown COMPLETE BLOOD COUNT [id number] Lymphocyte Abs 2.27 10e9/L Unknown COMPLETE BLOOD COUNT [id number] Monocyte Abs 0.87 10e9/L 01/05 Unknown COMPLETE BLOOD COUNT [id number] Eosinophil Abs 0.19 10e9/L Unknown COMPLETE BLOOD COUNT [id number] RDW-SD 47.7 fL 9 Unknown COMPLETE BLOOD COUNT 0904610 Basophil Abs 0.02 10e9/L 01/05 Unknown GFR CALC [id number] GFR Non Afr Amr 59 mL/min 01/26/2019 Unk nown GFR CALC 1044127 GFR Afr Amr >60 mL/min 01/26/2019 Unknow n LIPID GROUP 98165 Cholesterol 215 mg/dL 01/26/2019 Unkno wn LIPID GROUP 02014 Triglyceride 221 mg/dL 01/26/2019 Unkn own LIP[facility] GROUP 10291 HDL CHOLESTEROL 41 mg/dL 01/26/2019 U nknown LIPID GROUP 87227 Chol/HDL Ratio 5.24 ratio 01/26/2019 U nknown LIPID GROUP 35797 NON-HDL Chol 174 mg/dL 01/26/2019 Unkn own LIPID GROUP 46298 LDL Cholesterol 130 mg/dL 01/26/2019 [place] [address] Glucose 104 mg/dL 09/30 [place] [address] CREATININE 1.18 mg/dL [place] [address] BUN 19 mg/dL 09/30 [place] [address] SODIUM 139 mmol/L 09/05 [place] [address] POTASSIUM 4.1 mmol/L 09/05 [place] [address] CHLORIDE 105 mmol/L 09/05 [place] [address] Bicarbonate 26 mmol/L [place] [address] AGAP 8 mmol/L 09/30 [place] [address] CALCIUM 9.3 mg/dL 09/30 Unknown GFR CALC 2584300 GFR Non Afr Amr >60 mL/min 09/30/2018 Un known GFR CALC [id number] GFR Afr Amr >60 mL/min 09/30/2018 Unknow n MICROALBUMIN URINE RANDOM 48839 U Microalbumin <2.0 mg/L 08/19/2018 Unknown MICROALBUMIN URINE RANDOM 11524 U Creatinine 66 mg/dL 0 08/19/2018 Unknown MICROALBUMIN URINE RANDOM 28257 ALB/CR Ratio <3.0 mg/gCR 08/19/2018 Unknown COMPREHENSIVE METABOLIC 96421 AST 21 U/L 2018 Unknown COMPREHENSIVE METABOLIC 82034 ALT 20 U/L 2018 Unknown COMPREHENSIVE METABOLIC 28705 BUN 31 mg/dL 2018 Unknown COMPREHENSIVE METABOLIC 38735 ALBUMIN 4.4 g/dL 2018 Unknown COMPREHENSIVE METABOLIC 90999 CHLORIDE 105 mmol/L 08/16 Unknown COMPREHENSIVE METABOLIC 72487 Bili Total 0.5 mg/dL 08/16 Unknown COMPREHENSIVE METABOLIC 19930 ALK PHOS 40 U/L 2018 Unknown COMPREHENSIVE METABOLIC 46863 SODIUM 140 mmol/L 08/16 Unknown COMPREHENSIVE METABOLIC 08339 CREATININE 1.45 mg/dL 08/04 Unknown COMPREHENSIVE METABOLIC 60023 CALCIUM 9.8 mg/dL 2018 Unknown COMPREHENSIVE METABOLIC 39821 POTASSIUM 5.1 mmol/L 08/16 Unknown COMPREHENSIVE METABOLIC 22675 Total Protein 6.9 g/dL Unknown COMPREHENSIVE METABOLIC 92901 Glucose 110 mg/dL 2018 Unknown COMPREHENSIVE METABOLIC 06626 Bicarbonate 25 mmol/L 08/04 Unknown COMPREHENSIVE METABOLIC 08712 AGAP 10 mmol/L 2018 Unknown GFR CALC 6677508 GFR Non Afr Amr 48 mL/min 08/16/2018 Unk nown GFR CALC [id number] GFR Afr Amr 58 mL/min 08/16/2018 Unknown GLYCOSYLATED HEMOGLOBIN TEST 87470 Hgb A1c 19997-7 .9 % 0 08/16/2018 Unknown LIP[facility] GROUP 64007 Cholesterol 226 mg/dL 08/16/2018 Unkno wn LIPID GROUP 63946 Triglyceride 335 mg/dL 08/16/2018 Unkn own LIPID GROUP 11541 HDL CHOLESTEROL 32 mg/dL 08/16/2018 U nknown LIPID GROUP 23462 Chol/HDL Ratio 7.06 ratio 08/16/2018 U nknown LIPID GROUP 19381 NON-HDL Chol 194 mg/dL 08/16/2018 Unkn own LIP[facility] GROUP 55368 LDL Cholesterol 127 mg/dL 08/16/2018 U nknown THYROID STIMULATING HORMONE 38945 TSH 2.475 uIU/mL 08/16/2018 Unknown COMPLETE BLOOD COUNT 8939934 WBC 7.5 10e9/L 08/17/19 19 Unknown COMPLETE BLOOD COUNT 8287394 RBC 4.09 10e12/L 2018 Unknown COMPLETE BLOOD COUNT 0469568 HEMOGLOBIN 12.9 g/dL 08/17/19 19 Unknown COMPLETE BLOOD COUNT 3643781 HEMATOCRIT 40.0 % 08/17/19 19 Unknown COMPLETE BLOOD COUNT 4603084 MCV 97.8 fL 9 Unknown COMPLETE BLOOD COUNT [id number] MCH 31.5 pg 9 Unknown COMPLETE BLOOD COUNT 4050886 MCHC 32.3 g/dL 9 Unknown COMPLETE BLOOD COUNT 5778833 PLATELET COUNT 258 10e9/L Unknown COMPLETE BLOOD COUNT 3785851 Mean Plt Volume 11.4 fL Unknown COMPLETE BLOOD COUNT 6627013 Neut Auto 62.9 % 9 Unknown COMPLETE BLOOD COUNT 5841472 Lymph Auto 27.3 % 08/17/19 19 Unknown COMPLETE BLOOD COUNT 1928348 [place] Auto 8.2 % 9 Unknown COMPLETE BLOOD COUNT 1677312 RDW 13.3 % 9 Unknown COMPLETE BLOOD COUNT 9305773 Eos Auto 1.5 % 9 Unknown COMPLETE BLOOD COUNT 7888060 Baso Auto 0.1 % 9 Unknown COMPLETE BLOOD COUNT [id number] Neutrophil Abs 4.72 10e9/L Unknown COMPLETE BLOOD COUNT [id number] Lymphocyte Abs 2.05 10e9/L Unknown COMPLETE BLOOD COUNT [id number] Monocyte Abs 0.62 10e9/L 08/04 Unknown COMPLETE BLOOD COUNT [id number] Eosinophil Abs 0.11 10e9/L Unknown COMPLETE BLOOD COUNT [id number] RDW-SD 46.7 fL 9 Unknown COMPLETE BLOOD COUNT [id number] Basophil Abs 0.01 10e9/L 08/04 Unknown MEAN GLUC [id number] Calc Mean Gluc 123 mg/dL 08/16/2018 Unkn own [facility] 75058 Cholesterol 212 mg/dL 05/05/2018 Unkno wn [facility] 90326 Triglyceride 271 mg/dL 05/05/2018 Unkn own [facility] 53665 HDL CHOLESTEROL 38 mg/dL 05/05/2018 U nknown [facility] 92558 Chol/HDL Ratio 5.58 ratio 05/05/2018 U nknown [facility] 95369 NON-HDL Chol 174 mg/dL 05/05/2018 Unkn own [facility] 38622 LDL Cholesterol 120 mg/dL 05/05/2018 U nknown GFR CALC [id number] GFR Non Afr Amr 49 mL/min 05/05/2018 Unk nown GFR CALC [id number] GFR Afr Amr 59 mL/min 05/05/2018 Unknown GLYCOSYLATED HEMOGLOBIN TEST 33722 Hgb A1c 00293-0 6.0 % 0 05/05/2018 Unknown MEAN GLUC [id number] Calc Mean Gluc 126 mg/dL 05/05/2018 Unkn own COMPREHENSIVE METABOLIC 58643 AST 18 U/L 2018 Unknown COMPREHENSIVE METABOLIC 44302 ALT 23 U/L 2018 Unknown COMPREHENSIVE METABOLIC 77591 BUN 30 mg/dL 2018 Unknown COMPREHENSIVE METABOLIC 62196 ALBUMIN 4.3 g/dL 2018 Unknown COMPREHENSIVE METABOLIC 42531 CHLORIDE 106 mmol/L 05/05 Unknown COMPREHENSIVE METABOLIC 00837 Bili Total 0.4 mg/dL 05/05 Unknown COMPREHENSIVE METABOLIC 29865 ALK PHOS 39 U/L 2018 Unknown COMPREHENSIVE METABOLIC 80995 SODIUM 139 mmol/L 05/05 Unknown COMPREHENSIVE METABOLIC 62122 CREATININE 1.44 mg/dL 04/08 Unknown COMPREHENSIVE METABOLIC 02413 CALCIUM 9.6 mg/dL 2018 Unknown COMPREHENSIVE METABOLIC 25564 POTASSIUM 4.7 mmol/L 05/05 Unknown COMPREHENSIVE METABOLIC 36217 Total Protein 6.6 g/dL Unknown COMPREHENSIVE METABOLIC 82107 Glucose 112 mg/dL 2018 Unknown COMPREHENSIVE METABOLIC 70139 Bicarbonate 28 mmol/L 04/08 Unknown COMPREHENSIVE METABOLIC 85362 AGAP 5 mmol/L 2018 Unknown THYROID STIMULATING HORMONE 72471 TSH 3.725 uIU/mL 05/05/2018 Unknown COMPLETE BLOOD COUNT [id number] WBC 8.2 10e9/L 05/05/19 19 Unknown COMPLETE BLOOD COUNT [id number] RBC 4.02 10e12/L 2018 Unknown COMPLETE BLOOD COUNT [id number] HEMOGLOBIN 12.7 g/dL 05/05/19 19 Unknown COMPLETE BLOOD COUNT [id number] HEMATOCRIT 39.3 % 05/05/19 19 Unknown COMPLETE BLOOD COUNT [id number] MCV 97.8 fL 9 Unknown COMPLETE BLOOD COUNT [id number] MCH 31.6 pg 9 Unknown COMPLETE BLOOD COUNT 7889309 MCHC 32.3 g/dL 9 Unknown COMPLETE BLOOD COUNT 3088508 PLATELET COUNT 213 10e9/L Unknown COMPLETE BLOOD COUNT 9103512 Mean Plt Volume 11.7 fL Unknown COMPLETE BLOOD COUNT 8585186 Neut Auto 55.7 % 9 Unknown COMPLETE BLOOD COUNT 7929898 Lymph Auto 33.2 % 05/05/19 19 Unknown COMPLETE BLOOD COUNT 1511336 [place] Auto 8.5 % 9 Unknown COMPLETE BLOOD COUNT 1718368 RDW 13.9 % 9 Unknown COMPLETE BLOOD COUNT 9671750 Eos Auto 2.4 % 9 Unknown COMPLETE BLOOD COUNT 0456210 Baso Auto 0.2 % 9 Unknown COMPLETE BLOOD COUNT [id number] Neutrophil Abs 4.57 10e9/L Unknown COMPLETE BLOOD COUNT [id number] Lymphocyte Abs 2.72 10e9/L Unknown COMPLETE BLOOD COUNT [id number] Monocyte Abs 0.70 10e9/L 04/08 Unknown COMPLETE BLOOD COUNT [id number] Eosinophil Abs 0.20 10e9/L Unknown COMPLETE BLOOD COUNT 5644758 RDW-SD 48.8 fL 9 Unknown COMPLETE BLOOD COUNT [id number] Basophil Abs 0.02 10e9/L 04/08 Unknown MICROALBUMIN URINE RANDOM 34338 U Microalbumin 19.3 mg/L 01/19/2018 Unknown MICROALBUMIN URINE RANDOM 47779 U Creatinine 96 mg/dL 1 Unknown MICROALBUMIN URINE RANDOM 46701 ALB/CR Ratio 20.1 mg/gCR 01/19/2018 Unknown LIPID GROUP 33809 Cholesterol 173 mg/dL 01/13/2018 Unkno wn LIPID GROUP 66873 Triglyceride 386 mg/dL 01/13/2018 Unkn own LIPID GROUP 71985 HDL CHOLESTEROL 37 mg/dL 01/13/2018 U nknown LIPID GROUP 38884 Chol/HDL Ratio 4.68 ratio 01/13/2018 U nknown LIPID GROUP 76004 NON-HDL Chol 136 mg/dL 01/13/2018 Unkn own LIPID GROUP 49491 LDL Cholesterol 59 mg/dL 01/13/2018 U nknown COMPLETE BLOOD COUNT [id number] WBC TNP:Client Request 01/13/2018 Unknown COMPLETE BLOOD COUNT [id number] RBC TNP:Client Request 01/13/2018 Unknown COMPLETE BLOOD COUNT 9251137 HEMOGLOBIN TNP:Client Request 01/13/2018 Unknown COMPLETE BLOOD COUNT [id number] HEMATOCRIT TNP:Client Request 01/13/2018 Unknown COMPLETE BLOOD COUNT [id number] MCV TNP:Client Request 01/13/2018 Unknown COMPLETE BLOOD COUNT [id number] MCH TNP:Client Request 01/13/2018 Unknown COMPLETE BLOOD COUNT 4015429 MCHC TNP:Client Request 01/13/2018 Unknown COMPLETE BLOOD COUNT 1159139 PLATELET COUNT TNP:Client Req uest 01/13/2018 Unknown COMPLETE BLOOD COUNT 4420818 Mean Plt Volume TNP:Client Re quest 01/13/2018 Unknown COMPLETE BLOOD COUNT [id number] Neut Auto TNP:Client Request 01/13/2018 Unknown COMPLETE BLOOD COUNT [id number] Lymph Auto TNP:Client Request 01/13/2018 Unknown COMPLETE BLOOD COUNT [id number] [place] Auto TNP:Client Request 01/13/2018 Unknown COMPLETE BLOOD COUNT 7205688 RDW TNP:Client Request 01/13/2018 Unknown COMPLETE BLOOD COUNT 0401590 Eos Auto TNP:Client Request 01/13/2018 Unknown COMPLETE BLOOD COUNT 7138141 Baso Auto TNP:Client Request 01/13/2018 Unknown COMPLETE BLOOD COUNT [id number] Neutrophil Abs TNP:Client Req uest 01/13/2018 Unknown COMPLETE BLOOD COUNT [id number] Lymphocyte Abs TNP:Client Req uest 01/13/2018 Unknown COMPLETE BLOOD COUNT [id number] Monocyte Abs TNP:Client Reque st 01/13/2018 Unknown COMPLETE BLOOD COUNT [id number] Eosinophil Abs TNP:Client Req uest 01/13/2018 Unknown COMPLETE BLOOD COUNT [id number] RDW-SD TNP:Client Request 01/13/2018 Unknown COMPLETE BLOOD COUNT [id number] Basophil Abs TNP:Client Reque st 01/13/2018 Unknown GLYCOSYLATED HEMOGLOBIN TEST 32133 Hgb A1c 41887-0 6.2 % 1 Unknown THYROID STIMULATING HORMONE 39994 TSH 2.764 uIU/mL 01/13/2018 Unknown COMPREHENSIVE METABOLIC 39721 AST 19 U/L 2017 Unknown COMPREHENSIVE METABOLIC 77421 ALT 21 U/L 2017 Unknown COMPREHENSIVE METABOLIC 36275 BUN 16 mg/dL 2017 Unknown COMPREHENSIVE METABOLIC 58445 ALBUMIN 4.2 g/dL 2017 Unknown COMPREHENSIVE METABOLIC 59264 CHLORIDE 105 mmol/L 01/13 Unknown COMPREHENSIVE METABOLIC 45012 Bili Total 0.5 mg/dL 01/13 Unknown COMPREHENSIVE METABOLIC 93803 ALK PHOS 85 U/L 2017 Unknown COMPREHENSIVE METABOLIC 89396 SODIUM 139 mmol/L 01/13 Unknown COMPREHENSIVE METABOLIC 55684 CREATININE 1.07 mg/dL 01/04 Unknown COMPREHENSIVE METABOLIC 98631 CALCIUM 9.2 mg/dL 2017 Unknown COMPREHENSIVE METABOLIC 73652 POTASSIUM 4.4 mmol/L 01/13 Unknown COMPREHENSIVE METABOLIC 66258 Total Protein 7.7 g/dL Unknown COMPREHENSIVE METABOLIC 48386 Glucose 130 mg/dL 2017 Unknown COMPREHENSIVE METABOLIC 64504 Bicarbonate 27 mmol/L 01/04 Unknown COMPREHENSIVE METABOLIC 80550 AGAP 7 mmol/L 2017 Unknown PSA EQUIMOLAR JERSON 81545 PSA Total 1.16 ng/mL 8 Unknown MEAN GLUC 3977390 Calc Mean Gluc 131 mg/dL 01/13/2018 Unkn own GFR CALC 7043731 GFR Non Afr Amr >60 mL/min 01/13/2018 Un known GFR CALC 1406980 GFR Afr Amr >60 mL/min 01/13/2018 Unknow n MEAN GLUC 3432168 Calc Mean Gluc 134 mg/dL 10/06/2017 Unkn own GFR CALC 1355977 GFR Non Afr Amr >60 mL/min 10/06/2017 Un known GFR CALC 1909549 GFR Afr Amr >60 mL/min 10/06/2017 Unknow n GLYCOSYLATED HEMOGLOBIN TEST 95936 Hgb A1c 89493-9 6.3 % 0 10/06/2017 Unknown VITAMIN B 12 23569 VITAMIN B12 1202 pg/mL 10/06/2017 Unk nown COMPLETE BLOOD COUNT 7367907 WBC 7.4 10e9/L 10/07/19 18 Unknown COMPLETE BLOOD COUNT 8992866 RBC 4.24 10e12/L 2017 Unknown COMPLETE BLOOD COUNT 9286852 HEMOGLOBIN 13.5 g/dL 10/07/19 18 Unknown COMPLETE BLOOD COUNT 6091118 HEMATOCRIT 41.6 % 10/07/19 18 Unknown COMPLETE BLOOD COUNT 6684811 MCV 98.1 fL 8 Unknown COMPLETE BLOOD COUNT 9163031 MCH 31.8 pg 8 Unknown COMPLETE BLOOD COUNT 6829419 MCHC 32.5 g/dL 8 Unknown COMPLETE BLOOD COUNT 6617223 PLATELET COUNT 223 10e9/L 06/2017 Unknown COMPLETE BLOOD COUNT 1117679 Mean Plt Volume 11.9 fL 06/2017 Unknown COMPLETE BLOOD COUNT 7457176 Neut Auto 58.0 % 8 Unknown COMPLETE BLOOD COUNT 7042900 Lymph Auto 29.7 % 10/07/19 18 Unknown COMPLETE BLOOD COUNT 4146480 [place] Auto 8.3 % 8 Unknown COMPLETE BLOOD COUNT 1382367 RDW 14.0 % 8 Unknown COMPLETE BLOOD COUNT 2939738 Eos Auto 3.7 % 8 Unknown COMPLETE BLOOD COUNT 5283829 Baso Auto 0.3 % 8 Unknown COMPLETE BLOOD COUNT 1185348 Neutrophil Abs 4.29 10e9/L Unknown COMPLETE BLOOD COUNT 3739355 Lymphocyte Abs 2.20 10e9/L Unknown COMPLETE BLOOD COUNT [id number] Monocyte Abs 0.61 10e9/L 06/2017 Unknown COMPLETE BLOOD COUNT 3931859 Eosinophil Abs 0.27 10e9/L Unknown COMPLETE BLOOD COUNT 7096428 RDW-SD 48.6 fL 8 Unknown COMPLETE BLOOD COUNT [id number] Basophil Abs 0.02 10e9/L 06/2017 Unknown LIPID GROUP 57913 Cholesterol 216 mg/dL 10/06/2017 Unkno wn LIPID GROUP 31223 Triglyceride 335 mg/dL 10/06/2017 Unkn own LIPID GROUP 02829 HDL CHOLESTEROL 33 mg/dL 10/06/2017 U nknown LIPID GROUP 34987 Chol/HDL Ratio 6.55 ratio 10/06/2017 U nknown LIPID GROUP 82579 NON-HDL Chol 183 mg/dL 10/06/2017 Unkn own LIPID GROUP 41400 LDL Cholesterol 116 mg/dL 10/06/2017 U nknown COMPREHENSIVE METABOLIC 67153 AST 15 U/L 2017 Unknown COMPREHENSIVE METABOLIC 74408 ALT 15 U/L 2017 Unknown COMPREHENSIVE METABOLIC 40166 BUN 21 mg/dL 2017 Unknown COMPREHENSIVE METABOLIC 21873 ALBUMIN 4.1 g/dL 2017 Unknown COMPREHENSIVE METABOLIC 69465 CHLORIDE 107 mmol/L 10/06 Unknown COMPREHENSIVE METABOLIC 81301 Bili Total 0.6 mg/dL 10/06 Unknown COMPREHENSIVE METABOLIC 79507 ALK PHOS 68 U/L 2017 Unknown COMPREHENSIVE METABOLIC 75084 SODIUM 140 mmol/L 10/06 Unknown COMPREHENSIVE METABOLIC 25938 CREATININE 1.12 mg/dL 06/2017 Unknown COMPREHENSIVE METABOLIC 24165 CALCIUM 9.7 mg/dL 2017 Unknown COMPREHENSIVE METABOLIC 62317 POTASSIUM 4.6 mmol/L 10/06 Unknown COMPREHENSIVE METABOLIC 93211 Total Protein 6.6 g/dL Unknown COMPREHENSIVE METABOLIC 07033 Glucose 114 mg/dL 2017 Unknown COMPREHENSIVE METABOLIC 77281 Bicarbonate 26 mmol/L 06/2017 Unknown COMPREHENSIVE METABOLIC 73177 AGAP 7 mmol/L 2017 Unknown GLYCOSYLATED HEMOGLOBIN TEST 55596 Hgb A1c 78411-6 6.1 % 1 05/05/2016 Unknown GFR CALC 4358423 GFR Non Afr Amr >60 mL/min 03/05/2017 Un known GFR CALC 7453924 GFR Afr Amr >60 mL/min 03/05/2017 Unknow n MEAN GLUC 0211631 Calc Mean Gluc 128 mg/dL 03/05/2017 Unkn own COMPREHENSIVE METABOLIC 62776 AST 18 U/L 2016 Unknown COMPREHENSIVE METABOLIC 85656 ALT 20 U/L 2016 Unknown COMPREHENSIVE METABOLIC 59195 BUN 15 mg/dL 2016 Unknown COMPREHENSIVE METABOLIC 67096 ALBUMIN 4.3 g/dL 2016 Unknown COMPREHENSIVE METABOLIC 90323 CHLORIDE 105 mmol/L 03/05 Unknown COMPREHENSIVE METABOLIC 89221 Bili Total 0.5 mg/dL 03/05 Unknown COMPREHENSIVE METABOLIC 63293 ALK PHOS 57 U/L 2016 Unknown COMPREHENSIVE METABOLIC 45145 SODIUM 141 mmol/L 03/05 Unknown COMPREHENSIVE METABOLIC 77424 CREATININE 1.07 mg/dL 02/06 Unknown COMPREHENSIVE METABOLIC 45676 CALCIUM 9.3 mg/dL 2016 Unknown COMPREHENSIVE METABOLIC 61896 POTASSIUM 4.8 mmol/L 03/05 Unknown COMPREHENSIVE METABOLIC 81030 Total Protein 6.2 g/dL Unknown COMPREHENSIVE METABOLIC 76316 Glucose 118 mg/dL 2016 Unknown COMPREHENSIVE METABOLIC 50569 Bicarbonate 29 mmol/L 02/06 Unknown COMPREHENSIVE METABOLIC 37077 AGAP 7 mmol/L 2016 Unknown FREE T4 54103 T4 Free 1.38 ng/dL 03/05/2017 Unknown COMPLETE BLOOD COUNT 9680145 WBC 8.4 10e9/L 03/05/20 17 Unknown COMPLETE BLOOD COUNT 2093861 RBC 4.11 10e12/L 2016 Unknown COMPLETE BLOOD COUNT 3232615 HEMOGLOBIN 12.8 g/dL 03/05/20 17 Unknown COMPLETE BLOOD COUNT 4858925 HEMATOCRIT 40.1 % 03/05/20 17 Unknown COMPLETE BLOOD COUNT 4757863 MCV 97.6 fL 7 Unknown COMPLETE BLOOD COUNT 3924611 MCH 31.1 pg 7 Unknown COMPLETE BLOOD COUNT 0400665 MCHC 31.9 g/dL 7 Unknown COMPLETE BLOOD COUNT 5025876 PLATELET COUNT 184 10e9/L Unknown COMPLETE BLOOD COUNT 2331331 Mean Plt Volume 11.3 fL Unknown COMPLETE BLOOD COUNT 5559190 Neut Auto 62.5 % 7 Unknown COMPLETE BLOOD COUNT 8287241 Lymph Auto 26.4 % 03/05/20 17 Unknown COMPLETE BLOOD COUNT 4909120 [place] Auto 7.9 % 7 Unknown COMPLETE BLOOD COUNT 8851738 RDW 13.5 % 7 Unknown COMPLETE BLOOD COUNT 1970764 Eos Auto 3.0 % 7 Unknown COMPLETE BLOOD COUNT 5932875 Baso Auto 0.2 % 7 Unknown COMPLETE BLOOD COUNT 5232291 Neutrophil Abs 5.25 10e9/L Unknown COMPLETE BLOOD COUNT 8261681 Lymphocyte Abs 2.22 10e9/L Unknown COMPLETE BLOOD COUNT 5292783 Monocyte Abs 0.66 10e9/L 02/06 Unknown COMPLETE BLOOD COUNT 0678230 Eosinophil Abs 0.25 10e9/L Unknown COMPLETE BLOOD COUNT 7101447 RDW-SD 46.7 fL 7 Unknown COMPLETE BLOOD COUNT 2447430 Basophil Abs 0.02 10e9/L 02/06 Unknown THYROID STIMULATING HORMONE 75800 TSH 2.330 uIU/mL 03/05/2017 Unknown LIPID GROUP 54796 Cholesterol 135 mg/dL 03/05/2017 Unkno wn LIPID GROUP 08510 Triglyceride 297 mg/dL 03/05/2017 Unkn own LIPID GROUP 84862 HDL CHOLESTEROL 34 mg/dL 03/05/2017 U nknown LIPID GROUP 55409 Chol/HDL Ratio 3.97 ratio 03/05/2017 U nknown LIPID GROUP 78161 NON-HDL Chol 101 mg/dL 03/05/2017 Unkn own LIPID GROUP 95061 LDL Cholesterol 42 mg/dL 03/05/2017 U nknown GLYCOSYLATED HEMOGLOBIN TEST 91400 Hgb A1c 58710-0 6.5 % 1 05/07/2015 Unknown GFR CALC 1980094 GFR Non Afr Amr 55 mL/min 03/06/2016 Unk nown GFR CALC 9476970 GFR Afr Amr >60 mL/min 03/06/2016 Unknow n COMPLETE BLOOD COUNT 2629348 WBC 8.5 10e9/L 03/06/20 16 Unknown COMPLETE BLOOD COUNT 5824438 RBC 4.32 10e12/L 2015 Unknown COMPLETE BLOOD COUNT 1070792 HEMOGLOBIN 13.5 g/dL 03/06/20 16 Unknown COMPLETE BLOOD COUNT 3303114 HEMATOCRIT 41.3 % 03/06/20 16 Unknown COMPLETE BLOOD COUNT 6948795 MCV 95.6 fL 6 Unknown COMPLETE BLOOD COUNT 0118487 MCH 31.3 pg 6 Unknown COMPLETE BLOOD COUNT 3894036 MCHC 32.7 g/dL 6 Unknown COMPLETE BLOOD COUNT 3431762 PLATELET COUNT 191 10e9/L 04/2015 Unknown COMPLETE BLOOD COUNT 3531620 Mean Plt Volume 11.7 fL 04/2015 Unknown COMPLETE BLOOD COUNT 1712777 Neut Auto 64.2 % 6 Unknown COMPLETE BLOOD COUNT 6265806 Lymph Auto 25.9 % 03/06/20 16 Unknown COMPLETE BLOOD COUNT 0528142 [place] Auto 7.8 % 6 Unknown COMPLETE BLOOD COUNT 7760750 RDW 13.4 % 6 Unknown COMPLETE BLOOD COUNT 1495320 Eos Auto 2.0 % 6 Unknown COMPLETE BLOOD COUNT 5506565 Baso Auto 0.1 % 6 Unknown COMPLETE BLOOD COUNT 0921376 Neutrophil Abs 5.46 10e9/L Unknown COMPLETE BLOOD COUNT 7073224 Lymphocyte Abs 2.20 10e9/L Unknown COMPLETE BLOOD COUNT 7145864 Monocyte Abs 0.66 10e9/L 04/2015 Unknown COMPLETE BLOOD COUNT 8922740 Eosinophil Abs 0.17 10e9/L Unknown COMPLETE BLOOD COUNT 3842630 RDW-SD 45.0 fL 6 Unknown COMPLETE BLOOD COUNT [id number] Basophil Abs 0.01 10e9/L 04/2015 Unknown FREE T4 28110 T4 Free 1.34 ng/dL 03/06/2016 Unknown MEAN GLUC 6525213 Calc Mean Gluc 140 mg/dL 03/06/2016 Unkn own COMPREHENSIVE METABOLIC 35126 AST 15 U/L 2015 Unknown COMPREHENSIVE METABOLIC 99826 ALT 18 U/L 2015 Unknown COMPREHENSIVE METABOLIC 37610 BUN 21 mg/dL 2015 Unknown COMPREHENSIVE METABOLIC 67653 ALBUMIN 4.3 g/dL 2015 Unknown COMPREHENSIVE METABOLIC 50906 CHLORIDE 103 mmol/L 03/06 Unknown COMPREHENSIVE METABOLIC 48015 Bili Total 0.4 mg/dL 03/06 Unknown COMPREHENSIVE METABOLIC 82228 ALK PHOS 68 U/L 2015 Unknown COMPREHENSIVE METABOLIC 18302 SODIUM 140 mmol/L 03/06 Unknown COMPREHENSIVE METABOLIC 43985 CREATININE 1.31 mg/dL 04/2015 Unknown COMPREHENSIVE METABOLIC 15515 CALCIUM 9.4 mg/dL 2015 Unknown COMPREHENSIVE METABOLIC 14669 POTASSIUM 4.8 mmol/L 03/06 Unknown COMPREHENSIVE METABOLIC 23338 Total Protein 6.6 g/dL Unknown COMPREHENSIVE METABOLIC 99763 Glucose 142 mg/dL 2015 Unknown COMPREHENSIVE METABOLIC 66048 Bicarbonate 29 mmol/L 04/2015 Unknown COMPREHENSIVE METABOLIC 70080 AGAP 8 mmol/L 2015 Unknown THYROID STIMULATING HORMONE 72518 TSH 2.288 uIU/mL 03/06/2016 Unknown LIPID GROUP 76655 Cholesterol 154 mg/dL 03/06/2016 Unkno wn LIPID GROUP 78149 Triglyceride 266 mg/dL 03/06/2016 Unkn own LIPID GROUP 71281 HDL CHOLESTEROL 38 mg/dL 03/06/2016 U nknown LIPID GROUP 76003 Chol/HDL Ratio 4.05 ratio 03/06/2016 U nknown LIPID GROUP 90076 NON-HDL Chol 116 mg/dL 03/06/2016 Unkn own LIPID GROUP 67544 LDL Cholesterol 63 mg/dL 03/06/2016 U nknown MEAN GLUC 8338908 Mean Glucose 128 mg/dL 08/31/2015 Unknow n COMPLETE BLOOD COUNT 8850342 WBC 8.4 10e9/L 08/31/19 16 Unknown COMPLETE BLOOD COUNT 8202998 RBC 4.12 10e12/L 2015 Unknown COMPLETE BLOOD COUNT 7335151 HEMOGLOBIN 12.8 g/dL 08/31/19 16 Unknown COMPLETE BLOOD COUNT 8211322 HEMATOCRIT 39.6 % 08/31/19 16 Unknown COMPLETE BLOOD COUNT 6481430 MCV 96.1 fL 6 Unknown COMPLETE BLOOD COUNT 1818043 MCH 31.1 pg 6 Unknown COMPLETE BLOOD COUNT 6667872 MCHC 32.3 g/dL 6 Unknown COMPLETE BLOOD COUNT 9503761 PLATELET COUNT 184 10e9/L Unknown COMPLETE BLOOD COUNT 5288264 Mean Plt Volume 12.0 fL Unknown COMPLETE BLOOD COUNT 4377154 Neut Auto 59.8 % 6 Unknown COMPLETE BLOOD COUNT 6647206 Lymph Auto 27.9 % 08/31/19 16 Unknown COMPLETE BLOOD COUNT 4740115 [place] Auto 9.1 % 6 Unknown COMPLETE BLOOD COUNT 2337726 RDW 13.6 % 6 Unknown COMPLETE BLOOD COUNT 9681310 Eos Auto 3.1 % 6 Unknown COMPLETE BLOOD COUNT 4433797 Baso Auto 0.1 % 6 Unknown COMPLETE BLOOD COUNT 2223628 Neutrophil Abs 5.02 10e9/L Unknown COMPLETE BLOOD COUNT 1460988 Lymphoctye Abs 2.34 10e9/L Unknown COMPLETE BLOOD COUNT 9840201 Monocyte Abs 0.76 10e9/L 08/05 Unknown COMPLETE BLOOD COUNT 6457904 Eosinophil Abs 0.26 10e9/L Unknown COMPLETE BLOOD COUNT 2840376 RDW-SD 46.3 fL 6 Unknown COMPLETE BLOOD COUNT 6946376 Basophil Abs 0.01 10e9/L 08/05 Unknown GLYCOSYLATED HEMOGLOBIN TEST 88100 Hgb A1c 97042-9 6.1 % 0 08/31/2015 Unknown GFR CALC 6437824 GFR Non Afr Amr >60 mL/min 08/31/2015 Un known GFR CALC 0535055 GFR Afr Amr >60 mL/min 08/31/2015 Unknow n FREE T4 09523 T4 Free 1.21 ng/dL 08/31/2015 Unknown THYROID STIMULATING HORMONE 94804 TSH 2.988 uIU/mL 08/31/2015 Unknown COMPREHENSIVE METABOLIC 94467 AST 16 U/L 2015 Unknown COMPREHENSIVE METABOLIC 00166 ALT 19 U/L 2015 Unknown COMPREHENSIVE METABOLIC 99138 BUN 17 mg/dL 2015 Unknown COMPREHENSIVE METABOLIC 06357 ALBUMIN 4.3 g/dL 2015 Unknown COMPREHENSIVE METABOLIC 59334 CHLORIDE 107 mmol/L 08/30 Unknown COMPREHENSIVE METABOLIC 55003 Bili Total 0.4 mg/dL 08/30 Unknown COMPREHENSIVE METABOLIC 99735 ALK PHOS 66 U/L 2015 Unknown COMPREHENSIVE METABOLIC 66856 SODIUM 140 mmol/L 08/30 Unknown COMPREHENSIVE METABOLIC 62147 CREATININE 1.07 mg/dL 08/05 Unknown COMPREHENSIVE METABOLIC 61802 CALCIUM 9.5 mg/dL 2015 Unknown COMPREHENSIVE METABOLIC 86769 POTASSIUM 4.5 mmol/L 08/30 Unknown COMPREHENSIVE METABOLIC 71306 Total Protein 6.7 g/dL Unknown COMPREHENSIVE METABOLIC 76165 Glucose 122 mg/dL 2015 Unknown COMPREHENSIVE METABOLIC 52363 Bicarbonate 26 mmol/L 08/05 Unknown COMPREHENSIVE METABOLIC 59815 AGAP 7 mmol/L 2015 Unknown LIPID GROUP 62058 Cholesterol 171 mg/dL 08/31/2015 Unkno wn LIPID GROUP 81960 Triglyceride 428 mg/dL 08/31/2015 Unkn own LIPID GROUP 90951 HDL CHOLESTEROL 35 mg/dL 08/31/2015 U nknown LIPID GROUP 97084 Chol/HDL Ratio 4.89 ratio 08/31/2015 U nknon LIPID GROUP 79565 NON-HDL Chol 136 mg/dL 08/31/2015 Unkn own LIPID GROUP 29653 LDL Cholesterol 50 mg/dL 08/31/2015 U nknown PSA EQUIMOLAR JERSON 25694 PSA Total 0.47 ng/mL 6 Unknown GFR CALC 6800434 GFR AA >60 ML/MIN 01/12/2015 Unknown GFR CALC 2234836 GFR NON-AA >60 ML/MIN 01/12/2015 Unknown COMPREHENSIVE METABOLIC 56277 AST 18 U/L 2014 Unknown COMPREHENSIVE METABOLIC 49238 ALT 19 IU/L 2014 Unknown COMPREHENSIVE METABOLIC 44077 BUN 19 MG/DL 2014 Unknown COMPREHENSIVE METABOLIC 47507 ALBUMIN 4.7 GM/DL 2014 Unknown COMPREHENSIVE METABOLIC 60620 CHLORIDE 104 MMOL/L 01/12 Unknown COMPREHENSIVE METABOLIC 24955 BILI TOT 0.8 MG/DL 2014 Unknown COMPREHENSIVE METABOLIC 79832 ALK PHOS 58 U/L 2014 Unknown COMPREHENSIVE METABOLIC 89072 SODIUM 139 MMOL/L 01/12 Unknown COMPREHENSIVE METABOLIC 18125 CREATININE 1.09 MG/DL 12/2014 Unknown COMPREHENSIVE METABOLIC 15666 CALCIUM 9.6 MG/DL 2014 Unknown COMPREHENSIVE METABOLIC 98874 POTASSIUM 4.4 MMOL/L 01/12 Unknown COMPREHENSIVE METABOLIC 81245 PROT TOT 6.7 GM/DL 2014 Unknown COMPREHENSIVE METABOLIC 95944 Glucose 109 MG/DL 2014 Unknown COMPREHENSIVE METABOLIC 79370 BICARB 27 MMOL/L 2014 Unknown COMPREHENSIVE METABOLIC 46731 ANION GAP 8 MEQ/L 2014 Unknown LIPID GROUP 18252 HDL TEST 36 MG/DL 01/12/2015 Unknown LIPID GROUP 84036 TRIG 220 MG/DL 01/12/2015 Unknown LIPID GROUP 47882 TEST LDL 58 MG/DL 01/12/2015 Unknown LIPID GROUP 85471 CHOL 138 MG/DL 01/12/2015 Unknown LIPID GROUP 61855 RCHOL/HDL 3.83 RATIO 01/12/2015 Unknow n LIPID GROUP 14120 NON-HDL CH 102 MG/DL 01/12/2015 Unknow n GLYCOSYLATED HEMOGLOBIN TEST 77543 A1C HPLC 97477-6 6.1 % 1 Unknown COMPLETE BLOOD COUNT 8622836 WBC 7.1 10e9/L 01/13/20 15 Unknown COMPLETE BLOOD COUNT 7351308 RBC 4.38 10e12/L 2014 Unknown COMPLETE BLOOD COUNT 5194585 HGB 13.7 g/dL 5 Unknown COMPLETE BLOOD COUNT 9434824 HCT DET 41.3 % 5 Unknown COMPLETE BLOOD COUNT 7802873 MCV 94.3 fL 5 Unknown COMPLETE BLOOD COUNT 7121885 MCH 31.3 pg 5 Unknown COMPLETE BLOOD COUNT 4698706 MCHC 33.2 g/dL 5 Unknown COMPLETE BLOOD COUNT 0135529 PLT 174 10e9/L 01/13/20 15 Unknown COMPLETE BLOOD COUNT 7842277 MPV 11.8 fL 5 Unknown COMPLETE BLOOD COUNT 2613807 SAMIR % 61.3 % 5 Unknown COMPLETE BLOOD COUNT 3374132 LY % 28.3 % 5 Unknown COMPLETE BLOOD COUNT 8257131 MON % 7.6 % 5 Unknown COMPLETE BLOOD COUNT 8080667 EOS % 2.7 % 5 Unknown COMPLETE BLOOD COUNT 9679702 BASO % 0.1 % 5 Unknown COMPLETE BLOOD COUNT 0482833 RDW 13.1 % 5 Unknown COMPLETE BLOOD COUNT 4349680 ABS SAMIR 4.35 10e9/L 015 Unknown COMPLETE BLOOD COUNT 6628182 ABS LYMPH 2.01 10e9/L 015 Unknown COMPLETE BLOOD COUNT 6742392 ABS MONO 0.54 10e9/L 015 Unknown COMPLETE BLOOD COUNT 2932335 ABS EOS 0.19 10e9/L 015 Unknown COMPLETE BLOOD COUNT 2025842 ABS BASO 0.01 10e9/L 015 Unknown COMPLETE BLOOD COUNT 9579399 RDW-SD 43.9 fL 5 Unknown GLYCOSYLATED HEMOGLOBIN TEST 64784 A1C HPLC 06962-7 6.1 % 0 08/15/2014 Unknown COMPLETE BLOOD COUNT 0504489 WBC 9.7 10e9/L 08/16/19 15 Unknown COMPLETE BLOOD COUNT 6179534 RBC 4.29 10e12/L 2014 Unknown COMPLETE BLOOD COUNT 2056024 HGB 13.3 g/dL 5 Unknown COMPLETE BLOOD COUNT 4612296 HCT DET 40.5 % 5 Unknown COMPLETE BLOOD COUNT 4451923 MCV 94.4 fL 5 Unknown COMPLETE BLOOD COUNT 1569259 MCH 31.0 pg 5 Unknown COMPLETE BLOOD COUNT 5330562 MCHC 32.8 g/dL 5 Unknown COMPLETE BLOOD COUNT 4739685 PLT 227 10e9/L 08/16/19 15 Unknown COMPLETE BLOOD COUNT 9044727 MPV 11.0 fL 5 Unknown COMPLETE BLOOD COUNT 0558264 SAMIR % 66.4 % 5 Unknown COMPLETE BLOOD COUNT 4521529 LY % 23.7 % 5 Unknown COMPLETE BLOOD COUNT 5893672 MON % 8.1 % 5 Unknown COMPLETE BLOOD COUNT 6522005 EOS % 1.6 % 5 Unknown COMPLETE BLOOD COUNT 1739643 BASO % 0.2 % 5 Unknown COMPLETE BLOOD COUNT 4650125 RDW 13.4 % 5 Unknown COMPLETE BLOOD COUNT [id number] ABS SAMIR 6.44 10e9/L 015 Unknown COMPLETE BLOOD COUNT 6374475 ABS LYMPH 2.30 10e9/L 015 Unknown COMPLETE BLOOD COUNT 7677982 ABS MONO 0.79 10e9/L 015 Unknown COMPLETE BLOOD COUNT 7793788 ABS EOS 0.16 10e9/L 015 Unknown COMPLETE BLOOD COUNT 1524649 ABS BASO 0.02 10e9/L 015 Unknown COMPLETE BLOOD COUNT 4601020 RDW-SD 44.7 fL 5 Unknown COMPREHENSIVE METABOLIC 02936 AST 17 U/L 2014 Unknown COMPREHENSIVE METABOLIC 93390 ALT 23 IU/L 2014 Unknown COMPREHENSIVE METABOLIC 16722 BUN 16 MG/DL 2014 Unknown COMPREHENSIVE METABOLIC 98462 ALBUMIN 4.3 GM/DL 2014 Unknown COMPREHENSIVE METABOLIC 19768 CHLORIDE 107 MMOL/L 08/15 Unknown COMPREHENSIVE METABOLIC 35229 BILI TOT 0.4 MG/DL 2014 Unknown COMPREHENSIVE METABOLIC 33236 ALK PHOS 91 U/L 2014 Unknown COMPREHENSIVE METABOLIC 10722 SODIUM 139 MMOL/L 08/15 Unknown COMPREHENSIVE METABOLIC 02660 CREATININE 1.07 MG/DL 08/04 Unknown COMPREHENSIVE METABOLIC 06560 CALCIUM 9.6 MG/DL 2014 Unknown COMPREHENSIVE METABOLIC 74820 POTASSIUM 4.6 MMOL/L 08/15 Unknown COMPREHENSIVE METABOLIC 18411 PROT TOT 6.7 GM/DL 2014 Unknown COMPREHENSIVE METABOLIC 62962 Glucose 111 MG/DL 2014 Unknown COMPREHENSIVE METABOLIC 70347 BICARB 27 MMOL/L 2014 Unknown COMPREHENSIVE METABOLIC 93274 ANION GAP 5 MEQ/L 2014 Unknown GFR CALC [id number] GFR AA >60 ML/MIN 08/15/2014 Unknown GFR CALC [id number] GFR NON-AA >60 ML/MIN 08/15/2014 Unknown THYROID STIMULATING HORMONE 63587 TSH 1.598 uIU/ML 08/15/2014 Unknown LIPID GROUP 47669 HDL TEST 33 MG/DL 08/15/2014 Unknown LIPID GROUP 36499 TRIG 187 MG/DL 08/15/2014 Unknown LIPID GROUP 98881 TEST LDL 58 MG/DL 08/15/2014 Unknown LIPID GROUP 22597 CHOL 128 MG/DL 08/15/2014 Unknown LIPID GROUP 48786 RCHOL/HDL 3.88 RATIO 08/15/2014 Unknow n LIPID GROUP 95698 NON-HDL CH 95 MG/DL 08/15/2014 Unknow n PSA EQUIMOLAR JERSON 93491 PSA EQ 0.70 NG/ML 5 Unknown FREE T4 41197 FREE T4 1.32 NG/DL 08/15/2014 Unknown GFR CALC [id number] GFR AA >60 ML/MIN 12/14/2013 Unknown GFR CALC 9805161 GFR NON-AA 58.0L ML/MIN 12/14/2013 Unkno wn COMPLETE BLOOD COUNT 5477276 WBC 8.7 10e9/L 12/15/19 14 Unknown COMPLETE BLOOD COUNT 9926813 RBC 4.32 10e12/L 2013 Unknown COMPLETE BLOOD COUNT 1667201 HGB 13.5 g/dL 4 Unknown COMPLETE BLOOD COUNT 8833299 HCT DET 40.6 % 4 Unknown COMPLETE BLOOD COUNT 5820089 MCV 94.0 fL 4 Unknown COMPLETE BLOOD COUNT 4528946 MCH 31.3 pg 4 Unknown COMPLETE BLOOD COUNT 8583602 MCHC 33.3 g/dL 4 Unknown COMPLETE BLOOD COUNT 7016837 PLT 205 10e9/L 12/15/19 14 Unknown COMPLETE BLOOD COUNT 5552031 MPV 11.7 fL 4 Unknown COMPLETE BLOOD COUNT 8789169 SAMIR % 62.5 % 4 Unknown COMPLETE BLOOD COUNT 6549274 LY % 26.9 % 4 Unknown COMPLETE BLOOD COUNT 3956414 MON % 8.8 % 4 Unknown COMPLETE BLOOD COUNT 2088274 EOS % 1.7 % 4 Unknown COMPLETE BLOOD COUNT 4664960 BASO % 0.1 % 4 Unknown COMPLETE BLOOD COUNT 7338052 RDW 13.4 % 4 Unknown COMPLETE BLOOD COUNT [id number] ABS SAMIR 5.44 10e9/L 014 Unknown COMPLETE BLOOD COUNT [id number] ABS LYMPH 2.34 10e9/L 014 Unknown COMPLETE BLOOD COUNT [id number] ABS MONO 0.77 10e9/L 014 Unknown COMPLETE BLOOD COUNT [id number] ABS EOS 0.15 10e9/L 014 Unknown COMPLETE BLOOD COUNT [id number] ABS BASO 0.01 10e9/L 014 Unknown COMPLETE BLOOD COUNT [id number] RDW-SD 44.7 fL 4 Unknown COMPREHENSIVE METABOLIC 28364 AST 14 U/L 2013 Unknown COMPREHENSIVE METABOLIC 80596 ALT 12 IU/L 2013 Unknown COMPREHENSIVE METABOLIC 05301 BUN 24 MG/DL 2013 Unknown COMPREHENSIVE METABOLIC 05046 ALBUMIN 4.5 GM/DL 2013 Unknown COMPREHENSIVE METABOLIC 34712 CHLORIDE 104 MMOL/L 12/14 Unknown COMPREHENSIVE METABOLIC 53265 BILI TOT 0.6 MG/DL 2013 Unknown COMPREHENSIVE METABOLIC 07824 ALK PHOS 82 U/L 2013 Unknown COMPREHENSIVE METABOLIC 19290 SODIUM 135 MMOL/L 12/14 Unknown COMPREHENSIVE METABOLIC 50076 CREATININE 1.25 MG/DL 12/05 Unknown COMPREHENSIVE METABOLIC 87772 CALCIUM 9.8 MG/DL 2013 Unknown COMPREHENSIVE METABOLIC 26235 POTASSIUM 4.7 MMOL/L 12/14 Unknown COMPREHENSIVE METABOLIC 30957 PROT TOT 6.7 GM/DL 2013 Unknown COMPREHENSIVE METABOLIC 14454 Glucose 126 MG/DL 2013 Unknown COMPREHENSIVE METABOLIC 57318 BICARB 27 MMOL/L 2013 Unknown COMPREHENSIVE METABOLIC 45490 ANION GAP 4 MEQ/L 2013 Unknown THYROID STIMULATING HORMONE 32485 TSH 3.281 uIU/ML 12/14/2013 Unknown FREE T4 31578 FREE T4 1.28 NG/DL 12/14/2013 Unknown LIPID GROUP 84062 HDL TEST 36 MG/DL 12/14/2013 Unknown LIPID GROUP 00852 TRIG 253 MG/DL 12/14/2013 Unknown LIPID GROUP 73615 TEST LDL 56 MG/DL 12/14/2013 Unknown LIPID GROUP 25427 CHOL 143 MG/DL 12/14/2013 Unknown LIPID GROUP 10853 RCHOL/HDL 3.97 RATIO 12/14/2013 Unknow n LIPID GROUP 44713 NON-HDL CH 107 MG/DL 12/14/2013 Unknow n GLYCOSYLATED HEMOGLOBIN TEST 10075 A1C HPLC 74273-4 6.1 % 0 12/14/2013 Unknown GLYCOSYLATED HEMOGLOBIN TEST 79716 A1C HPLC 33409-5 6.0 % 0 06/08/2013 Unknown LIPID GROUP 06715 HDL TEST 39 MG/DL 06/08/2013 Unknown LIPID GROUP 54567 TRIG 166 MG/DL 06/08/2013 Unknown LIPID GROUP 51986 TEST LDL 86 MG/DL 06/08/2013 Unknown LIPID GROUP 99877 CHOL 158 MG/DL 06/08/2013 Unknown LIPID GROUP 79881 RCHOL/HDL 4.05 RATIO 06/08/2013 Unknow n COMPREHENSIVE METABOLIC 01217 AST 17 U/L 2013 Unknown COMPREHENSIVE METABOLIC 19904 ALT 25 IU/L 2013 Unknown COMPREHENSIVE METABOLIC 79994 BUN 18 MG/DL 2013 Unknown COMPREHENSIVE METABOLIC 34568 ALBUMIN 4.5 GM/DL 2013 Unknown COMPREHENSIVE METABOLIC 54608 CHLORIDE 103 MMOL/L 06/08 Unknown COMPREHENSIVE METABOLIC 27878 BILI TOT 0.4 MG/DL 2013 Unknown COMPREHENSIVE METABOLIC 33630 ALK PHOS 72 U/L 2013 Unknown COMPREHENSIVE METABOLIC 22866 SODIUM 137 MMOL/L 06/08 Unknown COMPREHENSIVE METABOLIC 99491 CREATININE 1.07 MG/DL 08/2013 Unknown COMPREHENSIVE METABOLIC 38522 CALCIUM 9.7 MG/DL 2013 Unknown COMPREHENSIVE METABOLIC 64951 POTASSIUM 4.7 MMOL/L 06/08 Unknown COMPREHENSIVE METABOLIC 04835 PROT TOT 6.6 GM/DL 2013 Unknown COMPREHENSIVE METABOLIC 09604 Glucose 130 MG/DL 2013 Unknown COMPREHENSIVE METABOLIC 28544 BICARB 25 MMOL/L 2013 Unknown COMPREHENSIVE METABOLIC 08331 ANION GAP 9 MEQ/L 2013 Unknown FREE T4 32150 FREE T4 1.29 NG/DL 06/08/2013 Unknown THYROID STIMULATING HORMONE 59965 TSH 2.445 uIU/ML 06/08/2013 Unknown GFR CALC GFR AA >60 ML/MIN 06/08/2013 Unknown GFR CALC GFR NON-AA >60 ML/MIN 06/08/2013 Unknown COMPLETE BLOOD COUNT [id number] WBC 8.2 10e9/L 06/09/19 14 Unknown COMPLETE BLOOD COUNT [id number] RBC 4.63 10e12/L 2013 Unknown COMPLETE BLOOD COUNT [id number] HGB 14.1 g/dL 4 Unknown COMPLETE BLOOD COUNT [id number] HCT DET 42.6 % 4 Unknown COMPLETE BLOOD COUNT 7369039 MCV 92.0 fL 4 Unknown COMPLETE BLOOD COUNT 2326157 MCH 30.5 pg 4 Unknown COMPLETE BLOOD COUNT 3512683 MCHC 33.1 g/dL 4 Unknown COMPLETE BLOOD COUNT [id number] PLT 222 10e9/L 06/09/19 14 Unknown COMPLETE BLOOD COUNT 6556366 MPV 10.8 fL 4 Unknown COMPLETE BLOOD COUNT [id number] SAMIR % 60.8 % 4 Unknown COMPLETE BLOOD COUNT [id number] LY % 29.2 % 4 Unknown COMPLETE BLOOD COUNT [id number] MON % 7.6 % 4 Unknown COMPLETE BLOOD COUNT [id number] EOS % 2.3 % 4 Unknown COMPLETE BLOOD COUNT [id number] BASO % 0.1 % 4 Unknown COMPLETE BLOOD COUNT [id number] RDW 13.7 % 4 Unknown COMPLETE BLOOD COUNT 1600155 ABS SAMIR 4.99 10e9/L 014 Unknown COMPLETE BLOOD COUNT [id number] ABS LYMPH 2.39 10e9/L 014 Unknown COMPLETE BLOOD COUNT [id number] ABS MONO 0.62 10e9/L 014 Unknown COMPLETE BLOOD COUNT [id number] ABS EOS 0.19 10e9/L 014 Unknown COMPLETE BLOOD COUNT [id number] ABS BASO 0.01 10e9/L 014 Unknown COMPLETE BLOOD COUNT [id number] RDW-SD 45.2 fL 4 Unknown LIPID GROUP 65958 HDL TEST 40 MG/DL 11/11/2012 Unknown LIPID GROUP 51188 TRIG 153 MG/DL 11/11/2012 Unknown LIPID GROUP 72298 TEST LDL 71 MG/DL 11/11/2012 Unknown LIPID GROUP 38393 CHOL 142 MG/DL 11/11/2012 Unknown LIPID GROUP 89711 RCHOL/HDL 3.55 RATIO 11/11/2012 Unknow n GFR CALC 6291240 GFR AA >60 ML/MIN 11/11/2012 Unknown GFR CALC 2643890 GFR NON-AA 57.0L ML/MIN 11/11/2012 Unkno wn HEMOGLOBIN A1C (GLYCOSYLATED) 3066194 A1C HPLC 65165-3 5.9 % 11/11/2012 Unknown THYROID STIMULATING HORMONE 48646 TSH 2.439 uIU/ML 11/11/2012 Unknown COMPLETE BLOOD COUNT 7063293 WBC 8.5 10e9/L 11/12/19 13 Unknown COMPLETE BLOOD COUNT [id number] RBC 4.42 10e12/L 2012 Unknown COMPLETE BLOOD COUNT 9853184 HGB 13.7 g/dL 3 Unknown COMPLETE BLOOD COUNT 3114072 HCT DET 41.3 % 3 Unknown COMPLETE BLOOD COUNT 5180706 MCV 93.4 fL 3 Unknown COMPLETE BLOOD COUNT 0601196 MCH 31.0 pg 3 Unknown COMPLETE BLOOD COUNT 2845846 MCHC 33.2 g/dL 3 Unknown COMPLETE BLOOD COUNT 7096409 PLT 220 10e9/L 11/12/19 13 Unknown COMPLETE BLOOD COUNT 7163661 MPV 10.8 fL 3 Unknown COMPLETE BLOOD COUNT [id number] SAMIR % 60.4 % 3 Unknown COMPLETE BLOOD COUNT 7778431 LY % 28.7 % 3 Unknown COMPLETE BLOOD COUNT [id number] MON % 8.0 % 3 Unknown COMPLETE BLOOD COUNT [id number] EOS % 2.8 % 3 Unknown COMPLETE BLOOD COUNT 1926103 BASO % 0.1 % 3 Unknown COMPLETE BLOOD COUNT 7553787 RDW 13.7 % 3 Unknown COMPLETE BLOOD COUNT [id number] ABS SAMIR 5.13 10e9/L 013 Unknown COMPLETE BLOOD COUNT [id number] ABS LYMPH 2.44 10e9/L 013 Unknown COMPLETE BLOOD COUNT [id number] ABS MONO 0.68 10e9/L 013 Unknown COMPLETE BLOOD COUNT [id number] ABS EOS 0.24 10e9/L 013 Unknown COMPLETE BLOOD COUNT [id number] ABS BASO 0.01 10e9/L 013 Unknown COMPLETE BLOOD COUNT [id number] RDW-SD 45.6 fL 3 Unknown COMPREHENSIVE METABOLIC 94702 AST 19 U/L 2012 Unknown COMPREHENSIVE METABOLIC 31716 ALT 28 IU/L 2012 Unknown COMPREHENSIVE METABOLIC 33065 BUN 31 MG/DL 2012 Unknown COMPREHENSIVE METABOLIC 12998 ALBUMIN 4.7 GM/DL 2012 Unknown COMPREHENSIVE METABOLIC 11441 CHLORIDE 106 MMOL/L 11/11 Unknown COMPREHENSIVE METABOLIC 48745 BILI TOT 0.5 MG/DL 2012 Unknown COMPREHENSIVE METABOLIC 31295 ALK PHOS 64 U/L 2012 Unknown COMPREHENSIVE METABOLIC 63993 SODIUM 136 MMOL/L 11/11 Unknown COMPREHENSIVE METABOLIC 52542 CREATININE 1.27 MG/DL 11/2012 Unknown COMPREHENSIVE METABOLIC 30378 CALCIUM 9.4 MG/DL 2012 Unknown COMPREHENSIVE METABOLIC 07211 POTASSIUM 4.9 MMOL/L 11/11 Unknown COMPREHENSIVE METABOLIC 25832 PROT TOT 6.7 GM/DL 2012 Unknown COMPREHENSIVE METABOLIC 09275 Glucose 108 MG/DL 2012 Unknown COMPREHENSIVE METABOLIC 48186 BICARB 21 MMOL/L 2012 Unknown COMPREHENSIVE METABOLIC 89623 ANION GAP 9 MEQ/L 2012 Unknown THYROID STIMULATING HORMONE 62693 TSH 2.572 uIU/ML 05/04/2012 Unknown COMPLETE BLOOD COUNT [id number] WBC 9.3 10e9/L 05/04/19 13 Unknown COMPLETE BLOOD COUNT [id number] RBC 4.43 10e12/L 2012 Unknown COMPLETE BLOOD COUNT 7979476 HGB 14.2 g/dL 3 Unknown COMPLETE BLOOD COUNT [id number] HCT DET 41.1 % 3 Unknown COMPLETE BLOOD COUNT 6837177 MCV 92.8 fL 3 Unknown COMPLETE BLOOD COUNT 3296814 MCH 32.1 pg 3 Unknown COMPLETE BLOOD COUNT 4082380 MCHC 34.5 g/dL 3 Unknown COMPLETE BLOOD COUNT [id number] PLT 193 10e9/L 05/04/19 13 Unknown COMPLETE BLOOD COUNT [id number] MPV 10.8 fL 3 Unknown COMPLETE BLOOD COUNT 6014283 SAMIR % 63.0 % 3 Unknown COMPLETE BLOOD COUNT 3558040 LY % 25.3 % 3 Unknown COMPLETE BLOOD COUNT [id number] MON % 9.1 % 3 Unknown COMPLETE BLOOD COUNT 1348179 EOS % 2.5 % 3 Unknown COMPLETE BLOOD COUNT 2360294 BASO % 0.1 % 3 Unknown COMPLETE BLOOD COUNT 1824313 RDW 12.6 % 3 Unknown COMPLETE BLOOD COUNT [id number] ABS SAMIR 5.86 10e9/L 013 Unknown COMPLETE BLOOD COUNT [id number] ABS LYMPH 2.35 10e9/L 013 Unknown COMPLETE BLOOD COUNT [id number] ABS MONO 0.85 10e9/L 013 Unknown COMPLETE BLOOD COUNT [id number] ABS EOS 0.23 10e9/L 013 Unknown COMPLETE BLOOD COUNT [id number] ABS BASO 0.01 10e9/L 013 Unknown COMPLETE BLOOD COUNT [id number] RDW-SD 41.2 fL 3 Unknown LIPID GROUP 10221 HDL TEST 35 MG/DL 05/04/2012 Unknown LIPID GROUP 16601 TRIG 236 MG/DL 05/04/2012 Unknown LIPID GROUP 05133 TEST LDL 64 MG/DL 05/04/2012 Unknown LIPID GROUP 12192 CHOL 146 MG/DL 05/04/2012 Unknown LIPID GROUP 18365 RCHOL/HDL 4.17 RATIO 05/04/2012 Unknow n COMPREHENSIVE METABOLIC 88402 AST 23 U/L 2012 Unknown COMPREHENSIVE METABOLIC 22877 ALT 33 IU/L 2012 Unknown COMPREHENSIVE METABOLIC 58313 BUN 16 MG/DL 2012 Unknown COMPREHENSIVE METABOLIC 72473 ALBUMIN 4.8 GM/DL 2012 Unknown COMPREHENSIVE METABOLIC 38381 CHLORIDE 104 MMOL/L 05/04 Unknown COMPREHENSIVE METABOLIC 64139 BILI TOT 0.5 MG/DL 2012 Unknown COMPREHENSIVE METABOLIC 78472 ALK PHOS 70 U/L 2012 Unknown COMPREHENSIVE METABOLIC 53287 SODIUM 138 MMOL/L 05/04 Unknown COMPREHENSIVE METABOLIC 26685 CREATININE 1.08 MG/DL 04/07 Unknown COMPREHENSIVE METABOLIC 12576 CALCIUM 9.7 MG/DL 2012 Unknown COMPREHENSIVE METABOLIC 53388 POTASSIUM 4.4 MMOL/L 05/04 Unknown COMPREHENSIVE METABOLIC 52002 PROT TOT 6.8 GM/DL 2012 Unknown COMPREHENSIVE METABOLIC 30010 Glucose 114 MG/DL 2012 Unknown COMPREHENSIVE METABOLIC 27105 BICARB 27 MMOL/L 2012 Unknown COMPREHENSIVE METABOLIC 37760 ANION GAP 7 MEQ/L 2012 Unknown FREE T4 74310 FREE T4 1.11 NG/DL 05/04/2012 Unknown GFR CALC 1460840 GFR AA >60 ML/MIN 05/04/2012 Unknown GFR CALC 7683529 GFR NON-AA >60 ML/MIN 05/04/2012 Unknown GLYCOSYLATED HEMOGLOBIN TEST 28624 A1C HPLC 66576-3 5.8 % 0 10/29/2011 Unknown COMPREHENSIVE METABOLIC 85826 AST 17 U/L 2011 Unknown COMPREHENSIVE METABOLIC 09412 ALT 21 IU/L 2011 Unknown COMPREHENSIVE METABOLIC 87787 BUN 17 MG/DL 2011 Unknown COMPREHENSIVE METABOLIC 38551 ALBUMIN 4.8 GM/DL 2011 Unknown COMPREHENSIVE METABOLIC 31983 CHLORIDE 106 MMOL/L 10/28 Unknown COMPREHENSIVE METABOLIC 09096 BILI TOT 0.6 MG/DL 2011 Unknown COMPREHENSIVE METABOLIC 67360 ALK PHOS 57 U/L 2011 Unknown COMPREHENSIVE METABOLIC 90608 SODIUM 139 MMOL/L 10/28 Unknown COMPREHENSIVE METABOLIC 68454 CREATININE 1.08 MG/DL 10/05 Unknown COMPREHENSIVE METABOLIC 21175 CALCIUM 9.6 MG/DL 2011 Unknown COMPREHENSIVE METABOLIC 09887 POTASSIUM 4.4 MMOL/L 10/28 Unknown COMPREHENSIVE METABOLIC 83462 PROT TOT 6.9 GM/DL 2011 Unknown COMPREHENSIVE METABOLIC 35191 Glucose 104 MG/DL 2011 Unknown COMPREHENSIVE METABOLIC 96868 BICARB 25 MMOL/L 2011 Unknown COMPREHENSIVE METABOLIC 12159 ANION GAP 8 MEQ/L 2011 Unknown LIPID GROUP 56270 HDL TEST 39 MG/DL 10/29/2011 Unknown LIPID GROUP 57913 TRIG 176 MG/DL 10/29/2011 Unknown LIPID GROUP 73111 TEST LDL 70 MG/DL 10/29/2011 Unknown LIPID GROUP 09399 CHOL 144 MG/DL 10/29/2011 Unknown LIPID GROUP 42000 RCHOL/HDL 3.69 RATIO 10/29/2011 Unknow n GFR CALC 3671233 GFR AA >60 ML/MIN 10/29/2011 Unknown GFR CALC 7050622 GFR NON-AA >60 ML/MIN 10/29/2011 Unknown GFR CALC 8991919 GFR AA >60 ML/MIN 03/14/2011 Unknown GFR CALC 7035689 GFR NON-AA >60 ML/MIN 03/14/2011 Unknown GLYCOSYLATED HEMOGLOBIN TEST 81534 A1C HPLC 21371-3 5.7 % 1 05/15/2010 Unknown COMPREHENSIVE METABOLIC 62640 AST 18 U/L 2010 Unknown COMPREHENSIVE METABOLIC 50757 ALT 25 IU/L 2010 Unknown COMPREHENSIVE METABOLIC 53834 BUN 15 MG/DL 2010 Unknown COMPREHENSIVE METABOLIC 91583 ALBUMIN 4.6 GM/DL 2010 Unknown COMPREHENSIVE METABOLIC 63474 CHLORIDE 107 MMOL/L 03/14 Unknown COMPREHENSIVE METABOLIC 83938 BILI TOT 0.6 MG/DL 2010 Unknown COMPREHENSIVE METABOLIC 69506 ALK PHOS 54 U/L 2010 Unknown COMPREHENSIVE METABOLIC 06830 SODIUM 140 MMOL/L 03/14 Unknown COMPREHENSIVE METABOLIC 54818 CREATININE 1.02 MG/DL 12/2010 Unknown COMPREHENSIVE METABOLIC 61599 CALCIUM 9.4 MG/DL 2010 Unknown COMPREHENSIVE METABOLIC 74057 POTASSIUM 4.6 MMOL/L 03/14 Unknown COMPREHENSIVE METABOLIC 48436 PROT TOT 7.0 GM/DL 2010 Unknown COMPREHENSIVE METABOLIC 93652 Glucose 107 MG/DL 2010 Unknown COMPREHENSIVE METABOLIC 34518 BICARB 28 MMOL/L 2010 Unknown COMPREHENSIVE METABOLIC 87260 ANION GAP 5 MEQ/L 2010 Unknown LIPID GROUP 58771 HDL TEST 39 MG/DL 03/14/2011 Unknown LIPID GROUP 72383 TRIG 157 MG/DL 03/14/2011 Unknown LIPID GROUP 79282 TEST LDL 66 MG/DL 03/14/2011 Unknown LIPID GROUP 74146 CHOL 136 MG/DL 03/14/2011 Unknown LIPID GROUP 69453 RCHOL/HDL 3.49 RATIO 03/14/2011 Unknow n GFR CALC 3797982 GFR AA >60 ML/MIN 11/11/2010 Unknown GFR CALC 7121189 GFR NON-AA >60 ML/MIN 11/11/2010 Unknown LIPID GROUP 60869 HDL TEST 39 MG/DL 11/11/2010 Unknown LIPID GROUP 44861 TRIG 212 MG/DL 11/11/2010 Unknown LIPID GROUP 37870 TEST LDL 67 MG/DL 11/11/2010 Unknown LIPID GROUP 78178 CHOL 148 MG/DL 11/11/2010 Unknown LIPID GROUP 29170 RCHOL/HDL 3.79 RATIO 11/11/2010 Unknow n COMPREHENSIVE METABOLIC 45992 AST 17 U/L 2010 Unknown COMPREHENSIVE METABOLIC 25342 ALT 21 IU/L 2010 Unknown COMPREHENSIVE METABOLIC 40495 BUN 16 MG/DL 2010 Unknown COMPREHENSIVE METABOLIC 67743 ALBUMIN 4.6 GM/DL 2010 Unknown COMPREHENSIVE METABOLIC 35341 CHLORIDE 106 MMOL/L 11/11 Unknown COMPREHENSIVE METABOLIC 64892 BILI TOT 0.5 MG/DL 2010 Unknown COMPREHENSIVE METABOLIC 04395 ALK PHOS 61 U/L 2010 Unknown COMPREHENSIVE METABOLIC 50024 SODIUM 139 MMOL/L 11/11 Unknown COMPREHENSIVE METABOLIC 58819 CREATININE 1.00 MG/DL 11/2010 Unknown COMPREHENSIVE METABOLIC 17492 CALCIUM 9.5 MG/DL 2010 Unknown COMPREHENSIVE METABOLIC 32204 POTASSIUM 4.5 MMOL/L 11/11 Unknown COMPREHENSIVE METABOLIC 11638 PROT TOT 6.9 GM/DL 2010 Unknown COMPREHENSIVE METABOLIC 54993 Glucose 111 MG/DL 2010 Unknown COMPREHENSIVE METABOLIC 89986 BICARB 26 MMOL/L 2010 Unknown COMPREHENSIVE METABOLIC 38266 ANION GAP 7 MEQ/L 2010 Unknown HEMOGLOBIN A1C (GLYCOSYLATED) 90213 A1C HPLC 54137-7 5.6 % 07/24/2010 Unknown GFR CALC 9548337 GFR AA >60 ML/MIN 07/23/2010 Unknown GFR CALC 9065189 GFR NON-AA >60 ML/MIN 07/23/2010 Unknown COMPREHENSIVE METABOLIC 95176 AST 19 U/L 2010 Unknown COMPREHENSIVE METABOLIC 55950 ALT 33 IU/L 2010 Unknown COMPREHENSIVE METABOLIC 56716 BUN 14 MG/DL 2010 Unknown COMPREHENSIVE METABOLIC 19085 ALBUMIN 4.7 GM/DL 2010 Unknown COMPREHENSIVE METABOLIC 71183 CHLORIDE 107 MMOL/L 07/23 Unknown COMPREHENSIVE METABOLIC 95330 BILI TOT 0.4 MG/DL 2010 Unknown COMPREHENSIVE METABOLIC 68021 ALK PHOS 80 U/L 2010 Unknown COMPREHENSIVE METABOLIC 42332 SODIUM 141 MMOL/L 07/23 Unknown COMPREHENSIVE METABOLIC 25007 CREATININE 0.97 MG/DL 07/05 Unknown COMPREHENSIVE METABOLIC 71382 CALCIUM 9.5 MG/DL 2010 Unknown COMPREHENSIVE METABOLIC 94169 POTASSIUM 4.1 MMOL/L 07/23 Unknown COMPREHENSIVE METABOLIC 17570 PROT TOT 6.8 GM/DL 2010 Unknown COMPREHENSIVE METABOLIC 60599 Glucose 120 MG/DL 2010 Unknown COMPREHENSIVE METABOLIC 70537 BICARB 26 MMOL/L 2010 Unknown COMPREHENSIVE METABOLIC 44407 ANION GAP 8 MEQ/L 2010 Unknown LIPID GROUP 27468 HDL TEST 41 MG/DL 07/23/2010 Unknown LIPID GROUP 54960 TRIG 175 MG/DL 07/23/2010 Unknown LIPID GROUP 64404 TEST LDL 72 MG/DL 07/23/2010 Unknown LIPID GROUP 56425 CHOL 148 MG/DL 07/23/2010 Unknown LIPID GROUP 76892 RCHOL/HDL 3.61 RATIO 07/23/2010 Unknow n PSA FREE AND TOTAL 70969|21723 % FREE PSA FOOTNOTE % 011 Unknown PSA FREE AND TOTAL 52283|26067 XPSA TOTAL 0.83 NG/ML 011 Unknown PSA FREE AND TOTAL 26666|91808 XPSA FREE 0.13 NG/ML 04/26/19 11 Unknown VITAMIN D TOTAL (25 HYDROXY) 59954 VIT D TOTL 26 NG/ML 04/22/2010 Unknown TESTOSTERONE TOTAL 66949 TESTOS TO 387 NG/DL 04/19/2010 Unknown GFR CALC 2618539 GFR AA >60 ML/MIN 04/19/2010 Unknown GFR CALC 6973151 GFR NON-AA >60 ML/MIN 04/19/2010 Unknown COMPLETE BLOOD COUNT 24938 WBC 7.0 10e9/L 04/19/19 11 Unknown COMPLETE BLOOD COUNT 76334 RBC 5.07 10e12/L 2010 Unknown COMPLETE BLOOD COUNT 38669 HGB 15.6 g/dL 1 Unknown COMPLETE BLOOD COUNT 65285 HCT DET 46.2 % 1 Unknown COMPLETE BLOOD COUNT 56640 MCV 91.1 fL 1 Unknown COMPLETE BLOOD COUNT 86430 MCH 30.8 pg 1 Unknown COMPLETE BLOOD COUNT 62578 MCHC 33.8 g/dL 1 Unknown COMPLETE BLOOD COUNT 28596 PLT 205 10e9/L 04/19/19 11 Unknown COMPLETE BLOOD COUNT 68683 MPV 11.1 fL 1 Unknown COMPLETE BLOOD COUNT 28123 SAMIR % 62.4 % 1 Unknown COMPLETE BLOOD COUNT 24030 LY % 28.5 % 1 Unknown COMPLETE BLOOD COUNT 95397 MON % 6.9 % 1 Unknown COMPLETE BLOOD COUNT 10607 EOS % 2.1 % 1 Unknown COMPLETE BLOOD COUNT 97755 BASO % 0.1 % 1 Unknown COMPLETE BLOOD COUNT 75239 RDW 13.4 % 1 Unknown COMPLETE BLOOD COUNT 83593 ABS SAMIR 4.37 10e9/L 011 Unknown COMPLETE BLOOD COUNT 84819 ABS LYMPH 2.00 10e9/L 011 Unknown COMPLETE BLOOD COUNT 24819 ABS MONO 0.48 10e9/L 011 Unknown COMPLETE BLOOD COUNT 13314 ABS EOS 0.15 10e9/L 011 Unknown COMPLETE BLOOD COUNT 70993 ABS BASO 0.01 10e9/L 011 Unknown COMPLETE BLOOD COUNT 31301 RDW-SD 43.8 fL 1 Unknown LIPID GROUP 60759 HDL TEST 39 MG/DL 04/19/2010 Unknown LIPID GROUP 29565 TRIG 244 MG/DL 04/19/2010 Unknown LIPID GROUP 46599 TEST LDL 168 MG/DL 04/19/2010 Unknown LIPID GROUP 97934 CHOL 256 MG/DL 04/19/2010 Unknown LIPID GROUP 80354 RCHOL/HDL 6.56 RATIO 04/19/2010 Unknow n COMPREHENSIVE METABOLIC 66873 AST 28 U/L 2010 Unknown COMPREHENSIVE METABOLIC 12687 ALT 46 IU/L 2010 Unknown COMPREHENSIVE METABOLIC 16582 BUN 14 MG/DL 2010 Unknown COMPREHENSIVE METABOLIC 45556 ALBUMIN 4.9 GM/DL 2010 Unknown COMPREHENSIVE METABOLIC 12428 CHLORIDE 104 MMOL/L 04/19 Unknown COMPREHENSIVE METABOLIC 60238 BILI TOT 0.8 MG/DL 2010 Unknown COMPREHENSIVE METABOLIC 88712 ALK PHOS 71 U/L 2010 Unknown COMPREHENSIVE METABOLIC 65738 SODIUM 139 MMOL/L 04/19 Unknown COMPREHENSIVE METABOLIC 70639 CREATININE 1.06 MG/DL 04/06 Unknown COMPREHENSIVE METABOLIC 41892 CALCIUM 9.9 MG/DL 2010 Unknown COMPREHENSIVE METABOLIC 07095 POTASSIUM 4.3 MMOL/L 04/19 Unknown COMPREHENSIVE METABOLIC 90729 PROT TOT 7.2 GM/DL 2010 Unknown COMPREHENSIVE METABOLIC 71986 Glucose 99 MG/DL 2010 Unknown COMPREHENSIVE METABOLIC 08544 BICARB 28 MMOL/L 2010 Unknown COMPREHENSIVE METABOLIC 32364 ANION GAP 7 MEQ/L 2010 Unknown FREE T4 61116 FREE T4 1.26 NG/DL 04/19/2010 Unknown Procedures Procedure Codes Date ROUTINE VENIPUNCTURE CPT-4: 74751 08/24/2019 COMPREHEN METABOLIC PANEL CPT-4: 92457 08/24/2019 A1C HPLC CPT-4: 43488 08/24/2019 ROUTINE VENIPUNCTURE CPT-4: 64786 05/24/2019 COMPREHEN METABOLIC PANEL CPT-4: 40213 05/24/2019 A1C HPLC CPT-4: 20982 05/24/2019 FLU VACC PRSV FREE INC ANTIG 65 AND OLDER CPT-4: 23185 01/26/2019 FLU VACC PRSV FREE INC ANTIG 65 AND OLDER CPT-4: 76426 01/26/2019 ADMIN INFLUENZA VIRUS VAC CPT-4: G0008 01/26/2019 ROUTINE VENIPUNCTURE CPT-4: 01230 01/26/2019 COMPREHEN METABOLIC PANEL CPT-4: 96214 01/26/2019 COMPLETE CBC W/AUTO DIFF WBC CPT-4: 43142 01/26/2019 LIPID PANEL CPT-4: 76285 01/26/2019 A1C HPLC CPT-4: 31660 01/26/2019 ROUTINE VENIPUNCTURE CPT-4: 33560 09/30/2018 METABOLIC PANEL TOTAL CA CPT-4: 41328 09/30/2018 URINALYSIS NONAUTO W/O SCOPE CPT-4: 45371 08/19/2018 URINE CULTURE/ COLONY COUNT CPT-4: 32595 08/19/2018 MICROALBUMIN QUANTITATIVE CPT-4: 79829 08/19/2018 ROUTINE VENIPUNCTURE CPT-4: 65879 08/16/2018 ASSAY THYROID STIM HORMONE CPT-4: 72234 08/16/2018 COMPREHEN METABOLIC PANEL CPT-4: 67072 08/16/2018 COMPLETE CBC W/AUTO DIFF WBC CPT-4: 58324 08/16/2018 LIPID PANEL CPT-4: 35597 08/16/2018 A1C HPLC CPT-4: 13592 08/16/2018 LIPID PANEL CPT-4: 66116 05/05/2018 COMPREHEN METABOLIC PANEL CPT-4: 09828 05/05/2018 ROUTINE VENIPUNCTURE CPT-4: 39578 05/05/2018 A1C HPLC CPT-4: 39446 05/05/2018 COMPLETE CBC W/AUTO DIFF WBC CPT-4: 36995 05/05/2018 ASSAY THYROID STIM HORMONE CPT-4: 63361 05/05/2018 MICROALBUMIN QUANTITATIVE CPT-4: 44438 01/19/2018 PRESCRIP TRANSMIT VIA ERX SY CPT-4: G8553 01/19/2018 ROUTINE VENIPUNCTURE CPT-4: 82407 01/13/2018 COMPREHEN METABOLIC PANEL CPT-4: 55606 01/13/2018 A1C HPLC CPT-4: 27032 01/13/2018 LIPID PANEL CPT-4: 44698 01/13/2018 ASSAY OF PSA TOTAL CPT-4: 13531 01/13/2018 ASSAY THYROID STIM HORMONE CPT-4: 44915 01/13/2018 ROUTINE VENIPUNCTURE CPT-4: 41023 10/06/2017 COMPREHEN METABOLIC PANEL CPT-4: 18261 10/06/2017 COMPLETE CBC W/AUTO DIFF WBC CPT-4: 81725 10/06/2017 LIPID PANEL CPT-4: 86781 10/06/2017 A1C HPLC CPT-4: 46398 10/06/2017 VITAMIN B-12 CPT-4: 87168 10/06/2017 DESTRUCT PREMALG LESION (Cryosurgery) CPT-4: 16898 DESTRUCT PREMALG LES 2-14 CPT-4: 36920 04/23/2017 PRESCRIP TRANSMIT VIA ERX SY CPT-4: G8553 03/11/2017 ROUTINE VENIPUNCTURE CPT-4: 02018 03/05/2017 ASSAY OF FREE THYROXINE CPT-4: 22036 03/05/2017 ASSAY THYROID STIM HORMONE CPT-4: 02549 03/05/2017 COMPREHEN METABOLIC PANEL CPT-4: 55064 03/05/2017 COMPLETE CBC W/AUTO DIFF WBC CPT-4: 82821 03/05/2017 LIPID PANEL CPT-4: 37790 03/05/2017 A1C HPLC CPT-4: 12941 03/05/2017 ROUTINE VENIPUNCTURE CPT-4: 19200 06/16/2016 ASSAY OF FREE THYROXINE CPT-4: 65522 06/16/2016 ASSAY THYROID STIM HORMONE CPT-4: 01041 06/16/2016 COMPREHEN METABOLIC PANEL CPT-4: 39410 06/16/2016 COMPLETE CBC W/AUTO DIFF WBC CPT-4: 42506 06/16/2016 LIPID PANEL CPT-4: 49569 06/16/2016 A1C HPLC CPT-4: 94223 06/16/2016 ROUTINE VENIPUNCTURE CPT-4: 00552 03/06/2016 ASSAY OF FREE THYROXINE CPT-4: 81140 03/06/2016 ASSAY THYROID STIM HORMONE CPT-4: 84907 03/06/2016 COMPREHEN METABOLIC PANEL CPT-4: 68444 03/06/2016 COMPLETE CBC W/AUTO DIFF WBC CPT-4: 07396 03/06/2016 LIPID PANEL CPT-4: 00927 03/06/2016 A1C HPLC CPT-4: 41781 03/06/2016 PRESCRIP TRANSMIT VIA ERX SY CPT-4: G8553 09/10/2015 PNEUMOCOCCAL VACC 23 ROSANNE IM CPT-4: 47558 09/06/2015 ADMIN PNEUMOCOCCAL VACCINE CPT-4: G0009 09/06/2015 ROUTINE VENIPUNCTURE CPT-4: 63118 08/31/2015 COMPREHEN METABOLIC PANEL CPT-4: 74515 08/31/2015 COMPLETE CBC W/AUTO DIFF WBC CPT-4: 86590 08/31/2015 LIPID PANEL CPT-4: 92647 08/31/2015 ASSAY OF PSA TOTAL CPT-4: 07948 08/31/2015 A1C HPLC CPT-4: 91010 08/31/2015 ASSAY OF FREE THYROXINE CPT-4: 45938 08/31/2015 ASSAY THYROID STIM HORMONE CPT-4: 76690 08/31/2015 PRESCRIP TRANSMIT VIA ERX SY CPT-4: G8553 06/29/2015 FLU VACC PRSV FREE INC ANTIG 65 AND OLDER CPT-4: 29829 01/17/2015 PNEUMOCOCCAL VACC 13 ROSANNE IM CPT-4: 86023 01/17/2015 ADMIN INFLUENZA VIRUS VAC CPT-4: G0008 01/17/2015 ADMIN PNEUMOCOCCAL VACCINE CPT-4: G0009 01/17/2015 DESTRUCT PREMALG LESION (Cryosurgery) CPT-4: 13439 PRESCRIP TRANSMIT VIA ERX SY CPT-4: G8553 01/17/2015 ROUTINE VENIPUNCTURE CPT-4: 26314 01/12/2015 COMPREHEN METABOLIC PANEL CPT-4: 29386 01/12/2015 COMPLETE CBC W/AUTO DIFF WBC CPT-4: 18791 01/12/2015 LIPID PANEL CPT-4: 21531 01/12/2015 A1C HPLC CPT-4: 22347 01/12/2015 DESTRUCT PREMALG LESION (Cryosurgery) CPT-4: 94822 ROUTINE VENIPUNCTURE CPT-4: 83929 08/15/2014 COMPREHEN METABOLIC PANEL CPT-4: 87348 08/15/2014 COMPLETE CBC W/AUTO DIFF WBC CPT-4: 52247 08/15/2014 LIPID PANEL CPT-4: 69141 08/15/2014 A1C HPLC CPT-4: 43688 08/15/2014 ASSAY OF PSA TOTAL CPT-4: 09467 08/15/2014 ASSAY OF FREE THYROXINE CPT-4: 98937 08/15/2014 ASSAY THYROID STIM HORMONE CPT-4: 02237 08/15/2014 ROUTINE VENIPUNCTURE CPT-4: 10796 12/14/2013 ASSAY OF FREE THYROXINE CPT-4: 75916 12/14/2013 ASSAY THYROID STIM HORMONE CPT-4: 50042 12/14/2013 COMPREHEN METABOLIC PANEL CPT-4: 04693 12/14/2013 COMPLETE CBC W/AUTO DIFF WBC CPT-4: 42911 12/14/2013 LIPID PANEL CPT-4: 34393 12/14/2013 A1C HPLC CPT-4: 38208 12/14/2013 ROUTINE VENIPUNCTURE CPT-4: 13116 06/08/2013 ASSAY OF FREE THYROXINE CPT-4: 89996 06/08/2013 ASSAY THYROID STIM HORMONE CPT-4: 73247 06/08/2013 COMPREHEN METABOLIC PANEL CPT-4: 34072 06/08/2013 COMPLETE CBC W/AUTO DIFF WBC CPT-4: 58958 06/08/2013 LIPID PANEL CPT-4: 96402 06/08/2013 A1C HPLC CPT-4: 10768 06/08/2013 ROUTINE VENIPUNCTURE CPT-4: 70830 11/11/2012 COMPREHEN METABOLIC PANEL CPT-4: 95499 11/11/2012 COMPLETE CBC W/AUTO DIFF WBC CPT-4: 59117 11/11/2012 LIPID PANEL CPT-4: 86435 11/11/2012 A1C GLYCOSYLATED HEMOGLOBIN TEST CPT-4: 87608 013 ASSAY THYROID STIM HORMONE CPT-4: 36177 11/11/2012 ROUTINE VENIPUNCTURE CPT-4: 29774 05/04/2012 ASSAY OF FREE THYROXINE CPT-4: 63748 05/04/2012 ASSAY THYROID STIM HORMONE CPT-4: 11817 05/04/2012 COMPREHEN METABOLIC PANEL CPT-4: 05404 05/04/2012 COMPLETE CBC W/AUTO DIFF WBC CPT-4: 98110 05/04/2012 LIPID PANEL CPT-4: 62141 05/04/2012 DESTRUCT PREMALG LESION (Cryosurgery) CPT-4: 12373 DESTRUCT PREMALG LES 2-14 CPT-4: 33673 03/02/2012 ROUTINE VENIPUNCTURE CPT-4: 42861 10/29/2011 COMPREHEN METABOLIC PANEL CPT-4: 81496 10/29/2011 LIPID PANEL CPT-4: 03637 10/29/2011 A1C GLYCOSYLATED HEMOGLOBIN TEST CPT-4: 57535 012 ROUTINE VENIPUNCTURE CPT-4: 27406 07/29/2011 COMPREHEN METABOLIC PANEL CPT-4: 49037 07/29/2011 LIPID PANEL CPT-4: 49331 07/29/2011 A1C GLYCOSYLATED HEMOGLOBIN TEST CPT-4: 05176 012 ROUTINE VENIPUNCTURE CPT-4: 76618 03/14/2011 COMPREHEN METABOLIC PANEL CPT-4: 23742 03/14/2011 LIPID PANEL CPT-4: 95957 03/14/2011 A1C GLYCOSYLATED HEMOGLOBIN TEST CPT-4: 79268 011 ROUTINE VENIPUNCTURE CPT-4: 36494 11/11/2010 COMPREHEN METABOLIC PANEL CPT-4: 35921 11/11/2010 LIPID PANEL CPT-4: 64462 11/11/2010 URINE CULTURE/ COLONY COUNT CPT-4: 87441 11/11/2010 URINALYSIS NONAUTO W/O SCOPE CPT-4: 66902 10/29/2010 URINE CULTURE/ COLONY COUNT CPT-4: 22796 10/29/2010 LIPID PANEL CPT-4: 19640 07/23/2010 COMPREHEN METABOLIC PANEL CPT-4: 65280 07/23/2010 ROUTINE VENIPUNCTURE CPT-4: 57933 07/23/2010 ROUTINE VENIPUNCTURE CPT-4: 60203 04/26/2010 PSA FREE AND TOTAL CPT-4: 51602|39966 04/26/2010 OCCULT BLOOD FECES CPT-4: 03237 04/24/2010 ROUTINE VENIPUNCTURE CPT-4: 08270 04/19/2010 COMPLETE CBC W/AUTO DIFF WBC CPT-4: 25198 04/19/2010 COMPREHEN METABOLIC PANEL CPT-4: 19564 04/19/2010 LIPID PANEL CPT-4: 68369 04/19/2010 TESTOSTERONE TOTAL - MALE CPT-4: 23242 04/19/2010 ASSAY THYROID STIM HORMONE CPT-4: 85852 04/19/2010 ASSAY OF FREE THYROXINE CPT-4: 88578 04/19/2010 VITAMIN D TOTAL (25 HYDROXY) CPT-4: 69048 04/19/2010 Vital Signs Date Vital 06/02/2019 Blood Pressure 1: 132/80 Code: 8480-6 BMI: 29.5 Code: 28724-3 Heart Rate 1: 64 bpm Height: 6'3" Respiratory Rate: 18 bpm SpO2: 97% Tempera ture: 36.6 (C) / 97.9 (F) Weight: 236 lbs 01/31/2019 Blood Pressure 1: 146/80 Code: 8480-6 Heart Rate 1: 60 bpm Respiratory Rate: 18 bpm SpO2: 96% Temperature: 36.8 (C) / 98.3 (F) We ight: 231 lbs 09/30/2018 Blood Pressure 1: 142/80 Code: 8480-6 art Rate 1: 65 bpm 08/19/2018 Blood Pressure 1: 116/74 Code: 8480-6 Heart Rate 1: 64 bpm Respiratory Rate: 20 bpm SpO2: 96% Temperature: 36.6 (C) / 97.9 (F) We ight: 227 lbs 05/10/2018 Blood Pressure 1: 112/70 Code: 8480-6 BMI: 28.9 Code: 66893-0 Heart Rate 1: 60 bpm Height: 6'3" Respiratory Rate: 20 bpm SpO2: 95% Tempera ture: 36.6 (C) / 97.9 (F) Weight: 231 lbs 01/19/2018 Blood Pressure 1: 150/82 Code: 8480-6 Heart Rate 1: 63 bpm Respiratory Rate: 18 bpm SpO2: 98% Temperature: 36.0 (C) / 96.8 (F) We ight: 225 lbs 10/15/2017 Blood Pressure 1: 126/82 Code: 8480-6 BMI: 27.9 Code: 36355-1 Heart Rate 1: 64 bpm Height: 6'3" Respiratory Rate: 20 bpm SpO2: 96% Tempera ture: 36.7 (C) / 98.1 (F) Weight: 223 lbs 04/23/2017 Blood Pressure 1: 136/74 Code: 8480-6 BMI: 28.7 Code: 84679-7 Heart Rate 1: 76 bpm Height: 6'3" Respiratory Rate: 20 bpm Temperature: 37 .0 (C) / 98.6 (F) Weight: 230 lbs 03/11/2017 Blood Pressure 1: 136/66 Code: 8480-6 BMI: 28.6 Code: 03821-0 Heart Rate 1: 60 bpm Height: 6'3" Respiratory Rate: 20 bpm Temperature: 36 .7 (C) / 98.1 (F) Weight: 229 lbs 07/09/2016 Blood Pressure 1: 132/80 Code: 8480-6 BMI: 27.7 Code: 44986-2 Heart Rate 1: 64 bpm Height: 6'3" Respiratory Rate: 20 bpm SpO2: 96% Tempera ture: 36.9 (C) / 98.4 (F) Weight: 222 lbs 03/10/2016 Blood Pressure 1: 134/78 Code: 8480-6 BMI: 28.5 Code: 08519-2 Heart Rate 1: 60 bpm Height: 6'3" Respiratory Rate: 20 bpm SpO2: 96% Tempera ture: 36.7 (C) / 98.1 (F) Weight: 228 lbs 09/12/2015 Blood Pressure 1: 136/78 Code: 8480-6 Heart Rate 1: 84 bpm Height: Respiratory Rate: 24 bpm SpO2: 97% Temperature: 36.4 (C) / 97.6 (F) We ight: 09/10/2015 Blood Pressure 1: 124/76 Code: 8480-6 BMI: 28.5 Code: 93097-1 Heart Rate 1: 76 bpm Height: 6'3" Respiratory Rate: 24 bpm SpO2: 97% Tempera ture: 36.4 (C) / 97.6 (F) Weight: 228 lbs 09/06/2015 Blood Pressure 1: 124 Code: 8480-6 BMI: 29.0 Code: 91548-8 Heart Rate 1: 66 bpm Height: 6'3" Respiratory Rate: 20 bpm SpO2: 97% Tempera ture: 36.4 (C) / 97.6 (F) Weight: 232 lbs 06/29/2015 Blood Pressure 1: 124 Code: 8480-6 Heart Rate 1: 88 bpm Height: Respiratory Rate: 20 bpm Temperature: 36.7 (C) / 98.1 (F) Weight: 01/17/2015 Blood Pressure 1: 124 Code: 8480-6 BMI: 27.7 Code: 12854-8 Heart Rate 1: 76 bpm Height: 6'3" Respiratory Rate: 20 bpm Temperature: 36 .6 (C) / 97.8 (F) Weight: 222 lbs 09/19/2014 Blood Pressure 1: 12880 Code: 8480-6 BMI: 27.4 Code: 11594-4 Heart Rate 1: 64 bpm Height: 6'3" Respiratory Rate: 20 bpm Temperature: 36 .4 (C) / 97.6 (F) Weight: 219 lbs 10/17/2013 Blood Pressure 1: 116/70 Code: 8480-6 Heart Rate 1: 88 bpm Respiratory Rate: 20 bpm Temperature: 36.9 (C) / 98.4 (F) Weight: 220 lbs 09/23/2013 Blood Pressure 1: 12480 Code: 8480-6 BMI: 28.7 Code: 42896-0 Heart Rate 1: 76 bpm Height: 6'3" Respiratory Rate: 20 bpm Temperature: 36 .8 (C) / 98.2 (F) Weight: 230 lbs 07/22/2013 Blood Pressure 1: 128/70 Code: 8480-6 He art Rate 1: 78 bpm 06/20/2013 Blood Pressure 1: 144/86 Code: 8480-6 BMI: 28.7 Code: 70639-3 Heart Rate 1: 92 bpm Height: 6'3" Respiratory Rate: 20 bpm Temperature: 36 .4 (C) / 97.6 (F) Weight: 230 lbs 11/25/2012 Blood Pressure 1: 128/80 Code: 8480-6 BMI: 27.5 Code: 28459-1 Heart Rate 1: 92 bpm Height: 6'3" Respiratory Rate: 20 bpm Temperature: 36 .8 (C) / 98.3 (F) Weight: 220 lbs 08/27/2012 Blood Pressure 1: 142/80 Code: 8480-6 BMI: 27.7 Code: 08945-4 Heart Rate 1: 76 bpm Height: 6'3" Respiratory Rate: 20 bpm Temperature: 36 .8 (C) / 98.3 (F) Weight: 222 lbs 05/11/2012 Blood Pressure 1: 136/80 Code: 8480-6 BMI: 27.7 Code: 31747-3 Heart Rate 1: 76 bpm Height: 6'3" Respiratory Rate: 20 bpm Temperature: 36 .8 (C) / 98.3 (F) Weight: 222 lbs 03/02/2012 Blood Pressure 1: 136/70 Code: 8480-6 BMI: 28.0 Code: 60848-0 Heart Rate 1: 80 bpm Height: 6'3" Respiratory Rate: 20 bpm Temperature: 36 .6 (C) / 97.8 (F) Weight: 224 lbs 12/11/2011 Blood Pressure 1: 142/80 Code: 8480-6 BMI: 27.1 Code: 34904-0 Heart Rate 1: 84 bpm Height: 6'3" Respiratory Rate: 20 bpm Temperature: 36 .9 (C) / 98.4 (F) Weight: 217 lbs 08/14/2011 Blood Pressure 1: 130/82 Code: 8480-6 He art Rate 1: 64 bpm 07/29/2011 Blood Pressure 1: 132/64 Code: 8480-6 BMI: 26.7 Code: 80990-8 Heart Rate 1: 72 bpm Height: 6'3" [...] 1: 142/88 Code: 8480-6 BMI: 26.4 Code: 44170-7 Heart Rate 1: 80 bpm Height: 6'3" [...] labs Encounters Encounter Performer Location Codes Date ([id number]) NURSE/OUTPATIENT VISIT EST Diagnosis: Essential (primary) hypertension[ICD10: I10] Diagnosis: Type 2 diabetes mellitus with hyperglycemia[ICD10: E11.65] Najma MCARTHUR [employer] CPT-4: 23336 08/24/2019 ([id number]) OFFICE/OUTPATIENT VISIT EST Diagnosis: Essential (primary) hypertension[ICD10: I10] Diagnosis: Gastro-esophageal reflux disease without esophagitis[ICD10: K21.9] Diagnosis: Type 2 diabetes mellitus with hyperglycemia[ICD10: E11.65] Najma MCARTHUR [employer] [facility] CPT-4: 42653 06/02/2019 ([id number]) NURSE/OUTPATIENT VISIT EST Diagnosis: Type 2 diabetes mellitus without complications[ICD10: E11.9] Diagnosis: Essential (primary) hypertension[ICD10: I10] Diagnosis: Mixed hyperlipidemia[ICD10: E78.2] Najma GODINEZ [employer] [facility] CPT-4: 37889 05/24/2019 ([id number]) OFFICE/OUTPATIENT VISIT EST Diagnosis: Essential (primary) hypertension[ICD10: I10] Diagnosis: Type 2 diabetes mellitus without complications[ICD10: E11.9] Diagnosis: Mixed hyperlipidemia[ICD10: E78.2] Najma GODINEZ Info [email or web address] CPT-4: 04188 01/31/2019 ([id number]) NURSE/OUTPATIENT VISIT EST Diagnosis: Mixed hyperlipidemia[ICD10: E78.2] Diagnosis: Type 2 diabetes mellitus without complications[ICD10: E11.9] Diagnosis: Essential (primary) hypertension[ICD10: I10] Diagnosis: Chronic kidney disease, unspecified[ICD10: N18.9] Najma OG [employer] CPT-4: 33494 01/26/2019 ([id number]) NURSE/OUTPATIENT VISIT EST Diagnosis: Chronic kidney disease, unspecified[ICD10: N18.9] Diagnosis: Essential (primary) hypertension[ICD10: I10] Najma SAMSONGreenFuelBIJAN oboxo CPT-4: 67903 09/30/2018 ([id number]) OFFICE/OUTPATIENT VISIT EST Diagnosis: Essential (primary) hypertension[ICD10: I10] Diagnosis: Type 2 diabetes mellitus without complications[ICD10: E11.9] Diagnosis: Mixed hyperlipidemia[ICD10: E78.2] Diagnosis: Unspecified kidney failure[ICD10: N19] Najma HAQUE ADELA [email or web address] CPT-4: 19178 08/19/2018 ([id number]) NURSE/OUTPATIENT VISIT EST Diagnosis: Essential (primary) hypertension[ICD10: I10] Diagnosis: Type 1 diabetes mellitus with unspecified complications[ICD10: E10.8] Diagnosis: Mixed hyperlipidemia[ICD10: E78.2] Najma MANUELEVELINA GRETCHEN [email or web address] CPT-4: 27670 08/16/2018 ([id number]) OFFICE/OUTPATIENT VISIT EST Diagnosis: Essential (primary) hypertension[ICD10: I10] Diagnosis: Type 2 diabetes mellitus without complications[ICD10: E11.9] Diagnosis: Mixed hyperlipidemia[ICD10: E78.2] Najmaanaid Og ANUM GRETCHEN [employer] CPT-4: 71464 05/10/2018 ([id number]) NURSE/OUTPATIENT VISIT EST Diagnosis: Essential (primary) hypertension[ICD10: I10] Diagnosis: Mixed hyperlipidemia[ICD10: E78.2] Diagnosis: Type 1 diabetes mellitus with unspecified complications[ICD10: E10.8] Najma OG [employer] [facility] CPT-4: 68809 05/05/2018 ([id number]) OFFICE/OUTPATIENT VISIT EST Diagnosis: Type 2 diabetes mellitus without complications[ICD10: E11.9] Diagnosis: Mixed hyperlipidemia[ICD10: E78.2] Diagnosis: Nicotine dependence, unspecified, uncomplicated[ICD10: F17.200] Diagnosis: Essential (primary) hypertension[ICD10: I10] Najma MANUELLINE Matilda OG [employer] [facility] CPT-4: 39190 01/19/2018 ([id number]) NURSE/OUTPATIENT VISIT EST Diagnosis: Type 1 diabetes mellitus with unspecified complications[ICD10: E10.8] Diagnosis: Essential (primary) hypertension[ICD10: I10] Diagnosis: Male erectile disorder[ICD10: F52.21] Diagnosis: Encounter for screening for malignant neoplasm of prostate[ICD10: Z12.5] Najma MANUELLINE Matilda LONG [employer] [facility] CPT-4: 48207 01/13/2018 ([id number]) OFFICE/OUTPATIENT VISIT EST Diagnosis: Type 2 diabetes mellitus without complications[ICD10: E11.9] Diagnosis: Essential (primary) hypertension[ICD10: I10] Diagnosis: Mixed hyperlipidemia[ICD10: E78.2] Najma ABBOTTDAREN GODINEZ Matilda LONG [employer] [facility] CPT-4: 95611 10/15/2017 ([id number]) NURSE/OUTPATIENT VISIT EST Diagnosis: Type 2 diabetes mellitus without complications[ICD10: E11.9] Diagnosis: Mixed hyperlipidemia[ICD10: E78.2] Diagnosis: Essential (primary) hypertension[ICD10: I10] Diagnosis: Glossitis[ICD10: K14.0] Najma MANUELLINE Matilda THAKKAR [employer] [facility] CPT-4: 24239 10/06/2017 ([id number]) OFFICE/OUTPATIENT VISIT EST Diagnosis: Type 2 diabetes mellitus without complications[ICD10: E11.9] Diagnosis: Mixed hyperlipidemia[ICD10: E78.2] Diagnosis: Essential (primary) hypertension[ICD10: I10] Najma OG DO [facility] CPT-4: 98857 03/11/2017 ([id number]) OFFICE/OUTPATIENT VISIT EST Diagnosis: Type 1 diabetes mellitus with unspecified complications[ICD10: E10.8] Diagnosis: Mixed hyperlipidemia[ICD10: E78.2] Diagnosis: Essential (primary) hypertension[ICD10: I10] Diagnosis: Other fatigue[ICD10: R53.83] Najma OG DO [facility] CPT-4: 00979 03/05/2017 ([id number]) OFFICE/OUTPATIENT VISIT EST Diagnosis: Type 2 diabetes mellitus without complications[ICD10: E11.9] Diagnosis: Mixed hyperlipidemia[ICD10: E78.2] Diagnosis: Essential (primary) hypertension[ICD10: I10] Diagnosis: Nicotine dependence, unspecified, uncomplicated[ICD10: F17.200] Najma OG DO [facility] CPT-4: 57081 07/09/2016 ([id number]) OFFICE/OUTPATIENT VISIT EST Diagnosis: Type 1 diabetes mellitus with unspecified complications[ICD10: E10.8] Diagnosis: Mixed hyperlipidemia[ICD10: E78.2] Diagnosis: Essential (primary) hypertension[ICD10: I10] Najma OG DO [facility] CPT-4: 68611 06/16/2016 ([id number]) OFFICE/OUTPATIENT VISIT EST Diagnosis: Type 2 diabetes mellitus without complications[ICD10: E11.9] Diagnosis: Mixed hyperlipidemia[ICD10: E78.2] Diagnosis: Essential (primary) hypertension[ICD10: I10] Najma OG DO [facility] CPT-4: 70348 03/10/2016 ([id number]) OFFICE/OUTPATIENT VISIT EST Diagnosis: Type 1 diabetes mellitus with unspecified complications[ICD10: E10.8] Diagnosis: Mixed hyperlipidemia[ICD10: E78.2] Diagnosis: Essential (primary) hypertension[ICD10: I10] Najma OG DO [facility] CPT-4: 15872 03/06/2016 ([id number]) OFFICE/OUTPATIENT VISIT EST Diagnosis: Bitten or stung by nonvenomous insect and other nonvenomous arthropods, subsequent encounter[ICD10: W57.XXXD] Diagnosis: Insect bite (nonvenomous), right thigh, subsequent encounter[ICD10: S70.361D] Barbara Brower NAJMA AmeenaMatilde Mag[facility] CPT-4: 42075 11/2015 ([id number]) OFFICE/OUTPATIENT VISIT EST Diagnosis: Bitten or stung by nonvenomous insect and other nonvenomous arthropods, initial encounter[ICD10: W57.XXXA] Diagnosis: Insect bite (nonvenomous), right thigh, initial encounter[ICD10: S70.361A] Barbara Brower NAJMA [employer] [facility] CPT-4: 54088 09/2015 ([id number]) OFFICE/OUTPATIENT VISIT EST Diagnosis: Mixed hyperlipidemia[ICD10: E78.2] Diagnosis: Essential (primary) hypertension[ICD10: I10] Diagnosis: Type 2 diabetes mellitus without complications[ICD10: E11.9] Diagnosis: Encounter for immunization[ICD10: Z23] Diagnosis: Encounter for screening for malignant neoplasm of colon[ICD10: Z12.11] Diagnosis: Abnormal weight gain[ICD10: R63.5] Barbara Brower ANUM GODINEZ [employer] CPT-4: 01903 09/06/2015 ([id number]) OFFICE/OUTPATIENT VISIT EST Diagnosis: Type 2 diabetes mellitus without complications[ICD10: E11.9] Diagnosis: Mixed hyperlipidemia[ICD10: E78.2] Diagnosis: Essential (primary) hypertension[ICD10: I10] Diagnosis: Encounter for screening for malignant neoplasm of prostate[ICD10: Z12.5] Diagnosis: Other fatigue[ICD10: R53.83] Najma MCARTHUR Info [employer]ilde [employer] CPT-4: 32490 08/31/2015 OFFICE/OUTPATIENT VISIT EST Diagnosis: Diarrhea, unspecified[ICD10: R19.7] Henrietta MCCOY [employer] CPT-4: 73372 06/29/2015 OFFICE/OUTPATIENT VISIT EST Diagnosis: PNEUMOCOCCAL VACCINE[ICD10: Z23] Diagnosis: FLU VACCINE[ICD10: Z23] Diagnosis: Essential (primary) hypertension[ICD10: I10] Diagnosis: Mixed hyperlipidemia[ICD10: E78.2] Diagnosis: Type 1 diabetes mellitus with unspecified complications[ICD10: E10.8] Diagnosis: Actinic keratosis[ICD10: L57.0] Najma OG [facility] CPT-4: 11986 01/17/2015 ([id number]) OFFICE/OUTPATIENT VISIT EST Diagnosis: Type 2 diabetes mellitus without complications[ICD10: E11.9] Diagnosis: Impaired fasting glucose[ICD10: R73.01] Diagnosis: Mixed hyperlipidemia[ICD10: E78.2] Diagnosis: Essential (primary) hypertension[ICD10: I10] Najma OG [employer] [facility] CPT-4: 14592 01/12/2015 ([id number]) OFFICE/OUTPATIENT VISIT EST Diagnosis: - I - HYPERLIPIDEMIA NEC/NOS[ICD9: 272.4] Diagnosis: HYPERTENSION[ICD9: 401.9] Diagnosis: DM W/O COMPLICATION TYPE II[ICD9: 250.00] Diagnosis: ACTINIC KERATOSIS[ICD9: 702.0] Najma OG [employer] [facility] CPT-4: 89594 09/19/2014 ([id number]) OFFICE/OUTPATIENT VISIT EST Diagnosis: HYPERLIPIDEMIA NEC/NOS[ICD9: 272.4] Diagnosis: HYPERTENSION[ICD9: 401.9] Diagnosis: IMPAIRED FASTING GLUCOSE[ICD9: 790.21] Diagnosis: MALAISE AND FATIGUE[ICD9: 780.79] Najma OG [employer] [facility] CPT-4: 74703 08/15/2014 ([id number]) OFFICE/OUTPATIENT VISIT EST Diagnosis: HYPERLIPIDEMIA NEC/NOS[ICD9: 272.4] Diagnosis: HYPERTENSION[ICD9: 401.9] Diagnosis: IMPAIRED FASTING GLUCOSE[ICD9: 790.21] Najma Heverlane CHAPMAN Matilda OG [employer] [facility] CPT-4: 80792 12/14/2013 ([id number]) OFFICE/OUTPATIENT VISIT EST Diagnosis: Post herpetic neuralgia[ICD9: 053.19] Najma BROOKS Matilda OG [employer] [facility] CPT-4: 43332 10/17/2013 OFFICE/OUTPATIENT VISIT EST Diagnosis: Shingles[ICD9: 053.9] Diagnosis: Post herpetic neuralgia[ICD9: 053.19] Jeanie ScottRandshawneeamita [facility] CPT-4: 41601 09/23/2013 ([id number]) OFFICE/OUTPATIENT VISIT EST Diagnosis: HYPERTENSION[ICD9: 401.9] Diagnosis: HYPERLIPIDEMIA NEC/NOS[ICD9: 272.4] Diagnosis: IMPAIRED FASTING GLUCOSE[ICD9: 790.21] [facility] CPT-4: 21724 06/20/2013 ([id number]) OFFICE/OUTPATIENT VISIT EST Diagnosis: HYPERLIPIDEMIA NEC/NOS[ICD9: 272.4] Diagnosis: MALAISE AND FATIGUE[ICD9: 780.79] Diagnosis: ROUTINE MEDICAL EXAM[ICD9: V70.0] Diagnosis: HYPERTENSION[ICD9: 401.9] Diagnosis: IMPAIRED FASTING GLUCOSE[ICD9: 790.21] [facility] CPT-4: 69515 06/08/2013 ([id number]) OFFICE/OUTPATIENT VISIT EST Diagnosis: HYPERLIPIDEMIA NEC/NOS[ICD9: 272.4] Diagnosis: HYPERTENSION[ICD9: 401.9] Diagnosis: IMPAIRED FASTING GLUCOSE[ICD9: 790.21] Diagnosis: DIARRHEA[ICD9: 787.91] Najma MANUELLINE Matilda Stallings [facility] CPT-4: 22211 11/25/2012 ([id number]) OFFICE/OUTPATIENT VISIT EST Diagnosis: HYPERLIPIDEMIA NEC/NOS[ICD9: 272.4] Diagnosis: HYPERTENSION[ICD9: 401.9] Diagnosis: IMPAIRED FASTING GLUCOSE[ICD9: 790.21] Diagnosis: MALAISE AND FATIGUE[ICD9: 780.79] Najma Hevervicentebijan FILI Gregory LONG [employer] [facility] CPT-4: 25805 11/11/2012 OFFICE/OUTPATIENT VISIT EST Diagnosis: Fungal dermatitis[ICD9: 111.9] Diagnosis: Dry skin dermatitis[ICD9: 692.89] Henrietta Jenkins AmeenaMatilde MERCEDES [employer] [facility] CPT-4: 32095 08/27/2012 ([id number]) OFFICE/OUTPATIENT VISIT EST Diagnosis: HYPERTENSION[ICD9: 401.9] Diagnosis: HYPERLIPIDEMIA NEC/NOS[ICD9: 272.4] Najma SAMSONNDER [facility] CPT-4: 04416 05/11/2012 ([id number]) OFFICE/OUTPATIENT VISIT EST Diagnosis: HYPERLIPIDEMIA NEC/NOS[ICD9: 272.4] Diagnosis: HYPERTENSION[ICD9: 401.9] Diagnosis: ROUTINE MEDICAL EXAM[ICD9: V70.0] Najma SAMSONNDER [facility] CPT-4: 33676 05/04/2012 ([id number]) OFFICE/OUTPATIENT VISIT EST Diagnosis: HYPERTENSION[ICD9: 401.9] Diagnosis: HYPERLIPIDEMIA NEC/NOS[ICD9: 272.4] Diagnosis: IMPAIRED FASTING GLUCOSE[ICD9: 790.21] Najma SAMSONNDBIJAN WADE [facility] CPT-4: 79080 12/11/2011 ([id number]) OFFICE/OUTPATIENT VISIT EST Diagnosis: HYPERLIPIDEMIA NEC/NOS[ICD9: 272.4] Diagnosis: HYPERTENSION[ICD9: 401.9] Diagnosis: IMPAIRED FASTING GLUCOSE[ICD9: 790.21] Najma SAMSONNDER [facility] CPT-4: 15754 10/29/2011 ([id number]) OFFICE/OUTPATIENT VISIT EST Diagnosis: HYPERTENSION[ICD9: 401.9] Najma SAMSON NDER [facility] CPT-4: 44335 08/14/2011 ([id number]) OFFICE/OUTPATIENT VISIT EST Diagnosis: HYPERTENSION[ICD9: 401.9] Diagnosis: IMPAIRED FASTING GLUCOSE[ICD9: 790.21] Najma SAMSONNDER [facility] CPT-4: 80362 07/29/2011 ([id number]) OFFICE/OUTPATIENT VISIT EST Diagnosis: HYPERTENSION[ICD9: 401.9] Najma SAMSON NDER [facility] CPT-4: 96214 07/23/2011 ([id number]) OFFICE/OUTPATIENT VISIT EST Diagnosis: HYPERTENSION[ICD9: 401.9] Najma SAMSON NDER [facility] CPT-4: 53722 06/24/2011 OFFICE/OUTPATIENT VISIT EST Diagnosis: HYPERTENSION[ICD9: 401.9] Najma PAYAN DO [facility] CPT-4: 04336 05/20/2011 OFFICE/OUTPATIENT VISIT EST Diagnosis: HYPERTENSION[ICD9: 401.9] Najma PAYAN DO [facility] CPT-4: 21785 04/15/2011 OFFICE/OUTPATIENT VISIT EST Diagnosis: HYPERLIPIDEMIA NEC/NOS[ICD9: 272.4] Diagnosis: IMPAIRED FASTING GLUCOSE[ICD9: 790.21] Najma OG DO [facility] CPT-4: 77319 03/18/2011 ([id number]) OFFICE/OUTPATIENT VISIT EST Najma OG DO [facility] CPT-4: 62051 07/30/2010 ([id number]) PREV VISIT, EST, AGE 40-64 Najma OG DO [facility] CPT-4: 72026 04/24/2010 Plan of Care Planned Activity Notes [...] : K21.9 06/02/2019 Appointment: Najma Og [facility]: [phone] [facility] [place] [place] FO[place] 06/02/2019 Appointment: Najma Og WPtel: [phone] [facility] [place] [place] 05/24/2019 Visit Diagnosis Plan: Essential [...] : E78.2 01/31/2019 Appointment: Najma Og WPtel: [address] [place] [address] US FOLLOW UP 01/31/2019 Appointment: Najma Og WPtel: [address] [place] [address] US LAB 01/26/2019 Appointment: Najma Og WPtel: [address] [place] [address] US LAB 09/30/2018 Visit Diagnosis Plan: Unspecified [...] : E11.9 08/19/2018 Appointment: Najma Og WPtel: [address] [place] [address] US FOLLOW UP 08/19/2018 Appointment: Najma Og WPtel: [address] [place], [place] [phone] [place] LAB 08/16/2018 Visit Diagnosis Plan: Essential [...] : E78.2 05/10/2018 Appointment: Najma Og WPtel: [address] [place], [place] [phone] [place] FOLLOW UP 05/10/2018 Patient Education: Low Back Pain Exercises: Illustration Completed 05/10/2018 Patient Education: Low Back Pain Exercises Completed 05/10/2018 Appointment: Najma Og WPtel: [address] [place], [place] [phone] [place] LAB 05/05/2018 Visit Diagnosis Plan: Type [...] : E78.2 01/19/2018 Appointment: Najma Og WPtel: [address] [place], [place] [phone] [place] FOLLOW UP 01/19/2018 Patient Education: Patient Medication Summary Completed 01/19/2018 Appointment: Najma Og WPtel: [address] [place], [place] [phone] [place] LAB 01/13/2018 Patient Education: Patient Medication [...] : I10 10/15/2017 Appointment: Najma Og WPtel: [address] [place], [place] [phone] [place] FOLLOW UP 10/15/2017 Patient Education: Patient Medication Summary Completed 10/15/2017 Appointment: Najma Og WPtel: [address] [place], [place] [phone] [place] LAB 10/06/2017 Patient Education: Patient Medication Summary Completed 10/06/2017 Visit Diagnosis Plan: Actinic keratosis Discussion: Cr yotherapy as above ICD-9 : 702.0 ICD-10 : L57.0 04/23/2017 Appointment: Najma Og WPtel: [address] [place] [phone] 04/23/2017 Patient Education: Patient [...] : E78.2 03/11/2017 Appointment: Najma Og WPtel: [address] [place], [place] [phone] [place] FOLLOW UP 03/11/2017 Patient Education: Patient Medication Summary Completed 03/11/2017 Appointment: Najma Og WPtel: [address] [place], [place] [phone] [place] LAB 03/05/2017 Patient Education: Patient Medication [...] : F17.200 07/09/2016 Appointment: Najma Og WPtel: [address] [place], [place] [phone] [place] 07/08 lm ~sl 07/09 confirmed~sl FOLLOW UP 08/2016 Patient Education: Patient Medication Summary Completed 07/09/2016 Appointment: Najma Og WPtel: [address] [place] [address] [place] LAB 06/16/2016 Patient Education: Patient Medication Summary Completed 06/16/2016 Visit Plan: Lab discussed Accuchecks maribel ly Lifestyle change for 3mos then check CMP, HbA1C in 3mos Has had flu and pneumonia shot 03/10/2016 Appointment: Najma Og WPtel: [address] [place], [place] [phone] [place] 03/06 confirmed `sl FOLLOW UP 03/10/2016 Patient Education: Patient Medication Summary Completed 03/10/2016 Appointment: Najma Og WPtel: [address] [place], [place] [phone] [place] LAB 03/06/2016 Patient Education: Patient Medication Summary Completed 03/06/2016 Referral: Don[facility]on [id number] [place] Referral Completed 10/22/2015 Visit Plan: Tick bite area looks much be tter Continue current rxs and close monitoring Follow up if any new symptoms or worsening appearance 09/12/2015 Appointment: Barbara Brower [address] [place] [address] 09/10 confirmed~sl FOLLOW UP 09/12/2015 Patient Education: Patient Medication Summary Completed 09/12/2015 Visit Plan: Cover as above 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 topical steroids to calm down the inflammation(suspect most of redness is due to histamine response vs infection) Monitor closely Follow up in 2 days to recheck 09/10/2015 Appointment: Barbara Brower [address] [place], [place] [id number] 09/10/2015 Patient Education: Patient [...] consider shingles vaccine 09/06/2015 Appointment: Barbara Brower [address] [place], [place] [phone] FOLLOW UP 09/06/2015 Patient Education: Patient Medication Summary Completed 09/06/2015 Care Plan: Referral Order SNOMED-CT : [id number] Pending 09/06/2015 Appointment: Najma Og WPtel: [phone] [id number] LAB 08/31/2015 Patient Education: Patient Medication Summary Completed 08/31/2015 Visit Plan: Offered aggressive (KUB, IV fluids, Labs) vs. conservative (oral hydration, treat symptoms, watchful waiting). Elects for conservative + labs. CBC & CMP at [facility] Discussed needed oral hydration (preferably with sports drinks), 24 hour clear liquid followed by BRAT diet and advance as tolerated Discussed s/s of worsening, go to UC/ER. 06/29/2015 Appointment: Henrietta Lubin WPtel: [phone] [id number] ACUTE ILLNESS 06/29/2015 Patient Education: Patient Medication Summary Completed 06/29/2015 Visit Plan: Lab discussed Will keep meds the same Discussed diet/exercise at length Cryotherapy as above to AKs of arms Flu and Prevnar 13 given Trial of revatio per patient request for ED--warned of no nitrates Recheck 4mos 01/17/2015 Appointment: Najma Og WPtel: [address] [place], [place] [id number] 01/16 confirmed~sl FOLLOW UP 01/17/2015 Patient Education: Patient Medication Summary Completed 01/17/2015 Appointment: Najma Og WPtel: [address] [place], [place] [phone] [place] LAB 01/12/2015 Patient Education: Patient Medication Summary Completed 01/12/2015 Visit Plan: Lab discussed Start accuchec ks daily Cryotherapy as above 09/19/2014 Appointment: Najma Og WPtel: [address] [place] [address] 09/18 confirmed -mf FOLLOW UP 09/19/2014 Patient Education: Patient Medication Summary Completed 09/19/2014 Appointment: Najma Og WPtel: [address] [place] [address] LAB 08/15/2014 Patient Education: Patient Medication Summary Completed 08/15/2014 Appointment: Najma Og WPtel: [address] [place] [address] ACUTE ILLNESS 12/14/2013 Patient Education: Patient Medication Summary Completed 12/14/2013 Visit Plan: Patient using tylenol prn pa in Discussed possible shingles shot for booster in 9-12mos 10/17/2013 Appointment: Najma Og WPtel: [address] [place], [place] [phone] FOLLOW UP 10/17/2013 Patient Education: Patient Medication Summary Completed 10/17/2013 Appointment: Jeanie Briceño WPtel: [address] [place] [address] ACUTE ILLNESS 09/23/2013 Patient Education: Patient Medication Summary Completed 09/23/2013 Appointment: Najma Og WPtel: [address] [place] [address] BP CHECK 07/22/2013 Patient Education: Patient Medication Summary Completed 07/22/2013 Visit Plan: Lab discussed Discussed swit arun amlodopine to beta slim to see if helps with tremor BP check in 1mo 06/20/2013 Appointment: Najma Og WPtel: [address] [place], [place] [phone] 06/17 no answer FOLLOW UP 06/20/2013 Patient Education: Patient Medication Summary Completed 06/20/2013 Appointment: Najma Og WPtel: [address] [place], [place] [phone] [place] LAB 06/08/2013 Patient Education: Patient Medication Summary Completed 06/08/2013 Visit Plan: BRAT diet and yogurt and gat orade Lab discussed Continue current meds Spot checks on BS 11/25/2012 Appointment: Najma Og WPtel: [address] [place], [place] [phone] 11/24 vm FOLLOW UP 11/25/2012 Patient Education: Patient Medication Summary Completed 11/25/2012 Appointment: Najma Og WPtel: [address] [place], [place] [phone] LAB 11/11/2012 Patient Education: Patient Medication Summary Completed 11/11/2012 Appointment: Henrietta Lubin WPtel: [address] [place], [place] [id number] WORK IN 08/27/2012 Patient Education: Patient Medication Summary Completed 08/27/2012 Visit Plan: Pt going to get new home BP moniter Continue crestor and restart fish oil and will check fasting lab in 6mos Lab results discussed 05/11/2012 Appointment: Najma Og WPtel: [address] [place], [place] [phone] 05/10 vm FOLLOW UP 05/11/2012 Patient Education: Patient Medication Summary Completed 05/11/2012 Appointment: Najma Og WPtel: [address] [place], [place] [phone] [place] LAB 05/04/2012 Patient Education: Patient Medication Summary Completed 05/04/2012 Visit Plan: 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 and forehead 03/02/2012 Appointment: Najma Og WPtel: [address] [place], [place] [phone] 03/01 OFFICE SURGERY 03/02/2012 Patient Education: Patient Medication Summary Completed 03/02/2012 Visit Plan: Labs discussed--recheck lab end of Feb/mar Continue current meds and continue to moniter BS daily and BP 1-2 times a week Plan on cryotherapy this fall so can wear longsleeves after procedure See urology 12/11/2011 Appointment: Najma Og WPtel: [address] [place] [address] FOLLOW UP 12/11/2011 Patient Education: Patient Medication Summary Completed 12/11/2011 Appointment: Najma Og WPtel: [address] [place], [place] [phone] LAB 10/29/2011 Patient Education: Patient Medication Summary Completed 10/29/2011 Appointment: Najma Og WPtel: [address] [place] [address] BP CHECK 08/14/2011 Patient Education: Patient Medication Summary Completed 08/14/2011 Appointment: Najma Og WPtel: [address] [place], [place] [id number] ACUTE ILLNESS 07/29/2011 Patient Education: Patient Medication Summary Completed 07/29/2011 Appointment: Najma Og WPtel: [address] [place] [address] BP CHECK 07/23/2011 Patient Education: Patient Medication Summary Completed 07/23/2011 Appointment: Najma Og WPtel: [address] [place], [place] [id number] BP CHECK 06/24/2011 Patient Education: Patient Medication Summary Completed 06/24/2011 Appointment: Najma Og WPtel: [address] [place], [place] [phone] [place] BP CHECK 05/20/2011 Patient Education: Patient Medication Summary Completed 05/20/2011 Appointment: Najma Og WPtel: [address] [place], [place] [phone] [place] BP CHECK 04/29/2011 Patient Education: Patient Medication Summary Completed 04/29/2011 Appointment: Najma Og WPtel: [address] [place], [place] [phone] [place] BP CHECK 04/15/2011 Patient Education: Patient Medication Summary Completed 04/15/2011 Visit Plan: Continue current meds Add fi sh oil 1gm daily Glucometer given to use for accuchecks prn 03/18/2011 Appointment: Najma Og WPtel: [address] [place] [phone] [place] FOLLOW UP 03/18/2011 Patient Education: Patient Medication Summary Completed 03/18/2011 Appointment: Najma Og WPtel: [address] [place] [phone] [place] LAB 03/14/2011 Patient Education: Patient Medication Summary Completed 03/14/2011 Appointment: Najma Og WPtel: [address] [place], [place] [phone] [place] LAB 11/11/2010 Appointment: Najma Og WPtel: [address] [place], [place] [id number] [place] UA 11/11/2010 Patient Education: Patient Medication Summary Completed 11/11/2010 Appointment: Najma Og WPtel: [address] [place], [place] [phone] [place] LAB 10/29/2010 Patient Education: Patient Medication Summary Completed 10/29/2010 Appointment: Najma Og WPtel: [address] [place] [phone] [place] FOLLOW UP 07/30/2010 Patient Education: Patient Medication Summary Completed 07/30/2010 Appointment: Najma Og WPtel: [address] [place] [phone] [place] LAB 07/23/2010 Patient Education: Patient Medication Summary Completed 07/23/2010 Appointment: Najma Og WPtel: [address] [place] [phone] [place] LAB 04/26/2010 Patient Education: Patient Medication Summary Completed 04/26/2010 Visit Plan: Add PSA to lab Restart Crest or at 10mg daily Trial of Wellbutrin to aid in smoking cessation Check Lipids and LFTs in 3mos 04/24/2010 Appointment: Najma Og WPtel: [address] [place], [place] [phone] FOLLOW UP 04/24/2010 Patient Education: Patient Medication Summary Completed 04/24/2010 Appointment: Najma Og WPtel: [address] [place], [place] [phone] [place] LAB 04/19/2010 Patient Education: Patient Medication Summary Completed 04/19/2010 Referral: Donavon Keller WPtel: [address] [id number] [place] Referral Completed Instructions Comment . Lab [...]
--- OUTSIDE RECORDS SUMMARY | 2019-10-14 22:38 | XMS REPORT | CCD ---
Author Author Inocente Og D.O. 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 PP Unavailable CCM Unavailable Summary Purpose Interface Exchange Insurance Providers Payer name Policy type / Coverage type Covered libertarian ID Effective Begin Date Effective End Date [employer]RO[employer] MEDICARE Medicare Part B [id number] Unknown [facility] Medicare Part B [id number] Un known Family history Father Diagnosis Age At Onset Diabetes mellitus Type 2 Unknown Myocardial infarction Unknown Brother Diagnosis Age At Onset Diabetes mellitus Type 2 Unknown Mother Diagnosis Age At Onset Osteoarthritis Unknown Cerebrovascular disease Unknown Social History Social History Element Codes Description Effective Dates Tobacco history SNOMED CT: 459772713 Never smoker 12/21/2014 Marital status Unknown 07/30/2010 [...] Instructions fenofibrate micronized 134 mg capsule RxNorm: 217811 TA KE 1 CAPSULE BY MOUTH ONCE DAILY FOR TRIGLYCERIDES 07/08/2019 10/05/2019 Active amlodipine 5 mg tablet RxNorm: 994451 TAKE 1 TABLET BY MOUTH ON CE DAILY 06/16/2019 09/13/2019 Active metformin ER 500 mg tablet,extended release 24 hr RxNorm: 86 0975 TAKE 1 TABLET BY MOUTH ONCE DAILY 06/10/2019 09/07/2019 Active propranolol ER 80 mg capsule,24 hr,extended release RxNorm: 845300 TAKE 1 CAPSULE BY MOUTH ONCE DAILY 06/10/2019 09/07/2019 Active Vitamin D3 25 mcg (1,000 unit) capsule RxNorm: 848741 1 Capsule(s) Oral two times a day 06/02/2019 No Stop Date Active turmeric 400 mg capsule RxNorm: 1 Capsule(s) Oral QD 06/02/2019 No Stop Date Active Fish Oil 120 mg-180 mg-500 mg capsule RxNorm: 2 Capsule(s) Ora l QD 06/02/2019 No Stop Date Active 16.2 mg-0.1037 mg-0.0194 mg tablet RxNorm: 1276080 1 Tablet(s) Oral four times a day as needed abdominal pain/diarrhea 06/02/2019 No Stop D ate Active fenofibrate micronized 134 mg capsule RxNorm: 146755 1 Capsule(s) Oral QD for triglycerides 04/14/2019 07/07/2019 Inactive amlodipine 5 mg tablet RxNorm: 036078 TAKE 1 TABLET BY MOUTH ON CE DAILY 03/22/2019 06/15/2019 Inactive metformin ER 500 mg tablet,extended release 24 hr RxNorm: 86 0975 TAKE 1 TABLET BY MOUTH ONCE DAILY 03/15/2019 06/09/2019 Inactive propranolol ER 80 mg capsule,24 hr,extended release RxNorm: 115474 TAKE 1 CAPSULE BY MOUTH ONCE DAILY 03/15/2019 06/09/2019 Inactive amlodipine 5 mg tablet RxNorm: 560076 1 Tablet(s) PO QD 12/27/2018 Inactive fenofibrate micronized 134 mg capsule RxNorm: 785301 TA KE 1 CAPSULE BY MOUTH ONCE DAILY FOR TRIGLYCERIDES 10/11/2018 04/13/2019 Inactive amlodipine 5 mg tablet RxNorm: 918009 1 Tablet(s) PO QD 09/30/2018 Inactive metformin ER 500 mg tablet,extended release 24 hr RxNorm: 86 0975 TAKE 1 TABLET BY MOUTH ONCE DAILY 09/21/2018 03/14/2019 Inactive propranolol ER 80 mg capsule,24 hr,extended release RxNorm: 647424 TAKE 1 CAPSULE BY MOUTH ONCE DAILY 09/21/2018 03/14/2019 Inactive amlodipine 5 mg tablet RxNorm: 847050 1 Tablet(s) PO QD 08/25/2018 Inactive amlodipine 5 mg tablet RxNorm: 209832 1 Tablet(s) PO QD 08/25/2018 Inactive lisinopril 40 mg tablet RxNorm: 388615 TAKE 1 TABLET BY MOUTH O NCE DAILY 07/21/2018 08/24/2018 Inactive fenofibrate micronized 134 mg capsule RxNorm: 939819 TA KE 1 CAPSULE BY MOUTH ONCE DAILY FOR TRIGLYCERIDES 07/12/2018 10/10/2018 Inactive propranolol ER 80 mg capsule,24 hr,extended release RxNorm: 752927 TAKE 1 CAPSULE BY MOUTH ONCE DAILY 06/21/2018 09/20/2018 Inactive lisinopril 40 mg tablet RxNorm: 455997 TAKE 1 TABLET BY MOUTH O NCE DAILY 04/26/2018 07/20/2018 Inactive metformin ER 500 mg tablet,extended release 24 hr RxNorm: 398293 1 Tablet(s) QD 03/31/2018 09/20/2018 Inactive lisinopril 40 mg tablet RxNorm: 177988 TAKE 1 TABLET BY MOUTH O NCE DAILY 01/28/2018 04/25/2018 Inactive Vitamin D3 5,000 unit tablet RxNorm: 942051 1 Tablet(s) PO QD 01/1908/18/2018 Inactive fenofibrate micronized 134 mg capsule RxNorm: 830005 1 Capsule(s) PO QD for triglycerides 01/19/2018 07/11/2018 Inactive metformin ER 500 mg tablet,extended release 24 hr RxNorm: 963119 1 Tablet(s) QD 12/31/2017 03/30/2018 Inactive metformin ER 500 mg tablet,extended release 24 hr RxNorm: 123544 Tablet(s) 12/30/2017 12/30/2017 Inactive propranolol ER 80 mg capsule,24 hr,extended release RxNorm: 767307 1 Capsule(s) PO QD 12/17/2017 06/14/2018 Inactive metformin ER 500 mg tablet,extended release 24 hr RxNorm: 86 0975 1 Tablet(s) PO QD DUE FOR LABS AND APPT 12/02/2017 12/30/2017 Inactive Crestor 10 mg tablet RxNorm: 185966 TAKE ONE TABLET BY MOUTH ON CE DAILY 11/01/2017 01/18/2018 Inactive lisinopril 40 mg tablet RxNorm: 365688 TAKE ONE TABLET BY MOUTH ONCE DAILY [...] ER 80 mg capsule,24 hr,extended release RxNorm: 227870 1 Capsule(s) PO QD DUE FOR APPT 09/08/2017 12/17/2017 Inactive Crestor 10 mg tablet RxNorm: 205050 1 Tablet(s) PO QD T CHELSI ONE TABLET BY MOUTH DAILY 03/11/2017 09/06/2017 Inactive propranolol ER 80 mg capsule,24 hr,extended release RxNorm: 094045 1 Capsule(s) PO QD TAKE ONE CAPSULE BY MOUTH DAILY - REPLACES AMLODOPINE 03/11/2017 09/08/2017 Inactive metformin ER 500 mg tablet,extended release 24 hr RxNorm: 86 0975 1 Tablet(s) PO QD 03/11/2017 09/08/2017 Inactive lisinopril 40 mg tablet RxNorm: 854809 1 Tablet(s) PO QD 03/11/2017 0 09/06/2017 Inactive lisinopril 40 mg tablet RxNorm: 732031 1 Tablet(s) PO QD 02/16/2017 1 05/11/2016 Inactive metformin ER 500 mg tablet,extended release 24 hr RxNorm: 86 0975 1 Tablet(s) PO QD Due for labs and follow up before further refills 02/16/2017 017 Inactive propranolol ER 80 mg capsule,24 hr,extended release RxNorm: 952952 Capsule(s) TAKE ONE CAPSULE BY MOUTH DAILY - REPLACES AMLODOPINE 11/19/20162016 Inactive lisinopril 40 mg tablet RxNorm: 796146 1 Tablet(s) PO QD 11/17/2016 1 04/18/2016 Inactive metformin ER 500 mg tablet,extended release 24 hr RxNorm: 86 0975 1 Tablet(s) PO QD 11/17/2016 02/16/2017 Inactive lisinopril 40 mg tablet RxNorm: 889023 1 Tablet(s) PO Q D TAKE ONE TABLET BY MOUTH DAILY 08/19/2016 11/17/2016 Inactive metformin ER 500 mg tablet,extended release 24 hr RxNorm: 86 0975 Tablet(s) TAKE ONE TABLET BY MOUTH DAILY 08/19/2016 11/16/2016 Inactive propranolol ER 80 mg capsule,24 hr,extended release RxNorm: 641873 Capsule(s) TAKE ONE CAPSULE BY MOUTH DAILY - REPLACES AMLODOPINE 08/19/20162016 Inactive Crestor 10 mg tablet RxNorm: 979331 TAKE ONE TABLET BY MOUTH DAILY 06/16/2016 03/10/2017 Inactive lisinopril 40 mg tablet RxNorm: 193064 1 Tablet(s) PO Q D TAKE ONE TABLET BY MOUTH DAILY 05/23/2016 08/18/2016 Inactive metformin ER 500 mg tablet,extended release 24 hr RxNorm: 86 0975 TAKE ONE TABLET BY MOUTH DAILY 05/23/2016 08/19/2016 Inactive propranolol ER 80 mg capsule,24 hr,extended release RxNorm: 849019 TAKE ONE CAPSULE BY MOUTH DAILY - REPLACES AMLODOPINE 05/23/2016 08/19/2016 [place] [facility] Crestor 10 mg tablet RxNorm: 031371 TAKE ONE TABLET BY MOUTH DAILY 03/31/2016 06/15/2016 Inactive metformin ER 500 mg tablet,extended release 24 hr RxNorm: 86 0975 TAKE ONE TABLET BY MOUTH DAILY 02/19/2016 05/22/2016 Inactive propranolol ER 80 mg capsule,24 hr,extended release RxNorm: 916943 TAKE ONE CAPSULE BY MOUTH DAILY - REPLACES AMLODOPINE 11/23/2015 05/20/2016 [place] [facility] metformin ER 500 mg tablet,extended release 24 hr RxNorm: 86 0975 TAKE ONE TABLET BY MOUTH DAILY 11/08/2015 02/05/2016 Inactive Bactroban Nasal 2 % ointment RxNorm: 302963 Apply topic ally to affected area twice daily 09/10/2015 03/09/2016 Inactive Vibramycin 100 mg capsule RxNorm: 420513 1 Capsule(s) PO BID 201509/23/2015 Inactive lisinopril 40 mg tablet RxNorm: 880679 1 Tablet(s) PO Q D TAKE ONE TABLET BY MOUTH DAILY 08/27/2015 02/22/2016 Inactive metformin ER 500 mg tablet,extended release 24 hr RxNorm: 86 0975 TAKE ONE TABLET BY MOUTH DAILY 08/06/2015 11/03/2015 Inactive Levsin/SL 0.125 mg sublingual tablet RxNorm: 0914010 1 T ablet(s) SL Q4H as needed for stomach cramps 06/29/2015 07/03/2015 Inactive lisinopril 40 mg tablet RxNorm: 248211 Tablet(s) TAKE ONE TABLE T BY MOUTH DAILY 06/07/2015 08/26/2015 Inactive propranolol ER 80 mg capsule,24 hr,extended release RxNorm: 356168 TAKE ONE CAPSULE BY MOUTH DAILY - REPLACES AMLODOPINE 05/30/2015 11/22/2015 [place] [facility] metformin ER 500 mg tablet,extended release 24 hr RxNorm: 86 0975 1 Tablet(s) PO QD 05/10/2015 08/05/2015 Inactive Crestor 10 mg tablet RxNorm: 253688 TAKE ONE TABLET BY MOUTH DAILY 04/18/2015 10/14/2015 Inactive metformin ER 500 mg tablet,extended release 24 hr RxNorm: 86 0975 TAKE ONE TABLET BY MOUTH DAILY 02/07/2015 05/10/2015 Inactive sildenafil 20 mg tablet RxNorm: 840134 1 Tablet(s) PO QD 01/17/2015 1 04/17/2014 Inactive propranolol ER 80 mg capsule,24 hr,extended release RxNorm: 806409 1 Capsule(s) PO QD replaces amlodopine 11/28/2014 05/26/2015 Inactive [[facility] -- BIN:[id number], PCN: [id number], Group: [id number], ID# [id number], Process claim through [employer], for questions: . THIS IS NOT INSURANCE.] lisinopril 40 mg tablet RxNorm: 015960 TAKE ONE TABLET BY MOUTH DAILY 11/16/2014 06/07/2015 Inactive lisinopril 40 mg tablet RxNorm: 090798 1 Tablet(s) PO QD 08/21/2014 0 11/15/2014 Inactive [AttnRPh: Saving apply/adjudicate RxGRP: [id number] RxBIN:[id number] RxPCN: ID#:[id number]] lisinopril 40 mg tablet RxNorm: 132438 1 Tablet(s) PO Q D NEEDS SEEN FOR APPOINTMENT 07/14/2014 08/21/2014 Inactive [AttnRPh: Saving apply/adjudicate RxGRP:SG20 RxBIN:[id number] RxPCN: ID#:[id number]] Crestor 10 mg tablet RxNorm: 669911 TAKE ONE TABLET BY MOUTH EV EILEEN07/06/2014 01/01/2015 Inactive metformin ER 500 mg tablet,extended release 24 hr RxNorm: 86 0975 1 Tablet(s) QD TAKE ONE TABLET BY MOUTH ONCE A DAY 06/09/2014 12/05/2014 Inactive propranolol ER 80 mg capsule,24 hr,extended release RxNorm: 883422 1 Capsule(s) PO QD replaces amlodopine 06/05/2014 11/28/2014 Inactive [[facility] -- BIN:[id number], PCN: [id number], Group: [id number], ID# [id number], Process claim through [employer], for questions: . THIS IS NOT INSURANCE.] propranolol ER 80 mg capsule,24 hr,extended release RxNorm: 657373 1 Capsule(s) PO QD replaces amlodopine 03/07/2014 06/05/2014 Inactive [[facility] -- BIN:[id number], PCN: [id number], Group: [id number], ID# [id number], Process claim through [employer], for questions: . THIS IS NOT INSURANCE.] metformin ER 500 mg tablet,extended release 24 hr RxNorm: 86 0975 TAKE ONE TABLET BY MOUTH ONCE A DAY 12/15/2013 06/09/2014 Inactive propranolol ER 80 mg capsule,24 hr,extended release RxNorm: 833779 1 Capsule(s) PO QD replaces amlodopine 12/09/2013 03/07/2014 Inactive [[facility] -- BIN:867786, PCN: [id number], Group: [id number], ID# [id number], Process claim through [employer], for questions: . THIS IS NOT INSURANCE.] acyclovir 800 mg tablet RxNorm: 389898 1 Tablet(s) PO QID 09/23/2013 09/29/2013 Inactive gabapentin 300 mg capsule RxNorm: 336311 1 Capsule(s) PO BID 201310/07/2013 Inactive metformin ER 500 mg tablet,extended release 24 hr RxNorm: 86 0975 1 Tablet(s) PO QD 09/19/2013 12/14/2013 Inactive propranolol ER 80 mg capsule,24 hr,extended release RxNorm: 611677 1 Capsule(s) PO QD replaces amlodopine 09/15/2013 12/09/2013 Inactive metformin ER 500 mg 24 hr tablet,extended release RxNorm: 86 0975 1 Tablet(s) PO QD 09/15/2013 09/18/2013 Inactive lisinopril 40 mg tablet RxNorm: 205340 1 Tablet(s) PO QD 07/19/2013 0 07/14/2014 Inactive Crestor 10 mg tablet RxNorm: 813331 Tablet(s) PO TAKE O NE TABLET BY MOUTH EVERY DAY 07/12/2013 07/05/2014 Inactive propranolol ER 80 mg capsule,24 hr,extended release RxNorm: 092454 1 Capsule(s) PO QD replaces amlodopine 06/20/2013 09/15/2013 Inactive triamcinolone acetonide 0.1 % topical ointment RxNorm: 51762 36 Application TOP BID 06/20/2013 06/26/2013 Inactive Crestor 10 mg tablet RxNorm: 196385 1 Tablet(s) PO QD 04/18/201310/2013 Inactive Viagra 100 mg tablet RxNorm: 979837 1 Tablet(s) PO as directed 01/0508/18/2018 Inactive TAKE ONE TABLET BY MOUTH DIRECTED Crestor 10 mg tablet RxNorm: 870374 1 Tablet(s) PO QD 01/17/201304/06 Inactive metformin ER 500 mg tablet,extended release 24 hr RxNorm: 86 0975 1 Tablet(s) PO QD TAKE ONE TABLET BY MOUTH EVERY DAY 12/23/2012 09/15/2013 Inactive triamcinolone acetonide 0.1 % topical ointment RxNorm: 40144 36 Application TOP BID 08/27/2012 09/02/2012 Inactive ketoconazole 2 % topical cream RxNorm: 244627 1 Application TOP QAM 08/27/2012 09/02/2012 Inactive lisinopril 40 mg tablet RxNorm: 240278 1 Tablet(s) PO QD 07/21/2012 0 07/15/2013 Inactive Crestor 10 mg tablet RxNorm: 886419 1 Tablet(s) PO QD 07/21/201210/04 Inactive amlodipine 10 mg tablet RxNorm: 455162 1 Tablet(s) PO QHS 07/21/2012 07/15/2013 Inactive metformin ER 500 mg tablet,extended release 24 hr RxNorm: 86 0977 Tablet(s) PO TAKE ONE TABLET BY MOUTH EVERY DAY 03/31/2012 12/22/2012 Inactive lisinopril 40 mg tablet RxNorm: 586376 1 Tablet(s) PO QD 07/29/2011 0 07/20/2012 Inactive amlodipine 10 mg tablet RxNorm: 687393 1 Tablet(s) PO QHS 07/29/2011 07/20/2012 Inactive amlodipine 10 mg Tab RxNorm: 692535 1 Tablet(s) PO QHS 07/29/2011 Inactive Viagra 100 mg tablet RxNorm: 851128 1 Tablet(s) PO as directed 07/0601/24/2013 Inactive TAKE ONE TABLET BY MOUTH DIRECTED Crestor 10 mg tablet RxNorm: 931005 1 Tablet(s) PO QD 07/29/201107/05 Inactive Norvasc 5 mg Tab RxNorm: 938654 1 Tablet(s) PO QD 07/16/2011 07/28/19 12 Inactive Norvasc 5 mg Tab RxNorm: 738875 1 Tablet(s) PO QD 06/26/2011 07/15/19 12 Inactive lisinopril 40 mg Tab RxNorm: 392486 1 Tablet(s) PO QD 05/13/201107/06 Inactive metformin ER 500 mg tablet,extended release 24 hr RxNorm: 86 0977 1 Tablet(s) PO QD 03/18/2011 07/28/2011 Inactive Crestor 10 mg Tab RxNorm: 171346 1 Tablet(s) PO QHS 01/27/20112011 Inactive metformin ER 500 mg 24 hr Tab RxNorm: 109837 1 Tablet(s) PO QD 11/0403/17/2011 Inactive Viagra 100 mg Tab RxNorm: 606222 Tablet(s) PO TAKE ON E TABLET BY MOUTH DIRECTED 08/26/2010 07/28/2011 Inactive metformin ER 500 mg 24 hr Tab RxNorm: 678826 1 Tablet(s) PO QD 07/0611/18/2010 Inactive Crestor 10 mg Tab RxNorm: 728599 1 Tablet(s) PO QHS 07/30/20102010 Inactive Crestor 10 mg Tab RxNorm: 847922 1 Tablet(s) PO QHS 05/20/20102010 Inactive Wellbutrin SR 150 mg Tab RxNorm: 184316 1 Tablet(s) PO QAM 04/24/19 11 07/22/2010 Inactive Multivitamin And Mineral tablet RxNorm: 1 Tablet(s) PO QD No Start Date Active FreeStyle Lite Strips RxNorm: 1 Unit Dose Miscel laneous AC & HS check blood sugar AC and HS No Start Date Active Co Q-10 200 mg capsule RxNorm: 377711 1 Capsule(s) PO QD No Start Date Active lancets RxNorm: 1 Milliliter(s) Miscellaneous AC & HS No Start Robert e Active Vitamin D3 4,000 unit capsule RxNorm: 0771754 1 Capsule(s) PO QD No Start Date 07/08/2016 Inactive Fish Oil 360 mg-1,200 mg capsule RxNorm: 882195 2 Capsule(s) PO QD No Start Date 01/30/2019 Inactive hydrocodone 5 mg-acetaminophen 325 mg tablet RxNorm: 916655 1 Tablet(s) PO Q4H as needed for severe pain No Start Date 12/30/2015 Inactive Xanax 0.25 mg tablet RxNorm: 253395 1/2 Tablet(s) PO PRN for se andrea stress No Start Date 07/08/2016 Inactive lisinopril 40 mg Tab RxNorm: 162292 1 Tablet(s) PO QD No Start Date 0 05/12/2011 Inactive Fish Oil 1,000 mg capsule RxNorm: 1 Capsule(s) PO QD No Start Date 09/18/2014 Inactive naproxen 500 mg Tab RxNorm: 621561 1 Tablet(s) PO BID No Start Date 0 07/28/2011 Inactive aspirin 81 mg tablet RxNorm: 502722 1 Tablet(s) PO QD No Start Date 0 05/09/2018 Inactive Crestor 10 mg Tab RxNorm: 934380 1 Tablet(s) PO QD No Start Date 07/06 Inactive Crestor 5 mg tablet RxNorm: 198184 1 Tablet(s) PO QD No Start Date Inactive Fish Oil Oral RxNorm: Oral No Start Date 09/18/2014 Inactive Viagra 100 mg Tab RxNorm: 181752 1 Tablet(s) PO as directed No Star [...] Date S vic Location GLYCOSYLATED HEMOGLOBIN TEST 46630 Hgb A1c 15904-5 6.7 % 0 05/24/2019 Unknown COMPREHENSIVE METABOLIC 28766 AST 21 U/L 2019 Unknown COMPREHENSIVE METABOLIC 61457 ALT 26 U/L 2019 Unknown COMPREHENSIVE METABOLIC 57434 BUN 14 mg/dL 2019 Unknown COMPREHENSIVE METABOLIC 01078 ALBUMIN 4.4 g/dL 2019 Unknown COMPREHENSIVE METABOLIC 32857 CHLORIDE 102 mmol/L 05/24 Unknown COMPREHENSIVE METABOLIC 52483 Bili Total 0.4 mg/dL 05/24 Unknown COMPREHENSIVE METABOLIC 91058 ALK PHOS 55 U/L 2019 Unknown COMPREHENSIVE METABOLIC 91741 SODIUM 139 mmol/L 05/24 Unknown COMPREHENSIVE METABOLIC 63291 CREATININE 1.28 mg/dL 05/07 Unknown COMPREHENSIVE METABOLIC 45114 CALCIUM 9.7 mg/dL 2019 Unknown COMPREHENSIVE METABOLIC 25159 POTASSIUM 4.7 mmol/L 05/24 Unknown COMPREHENSIVE METABOLIC 23034 Total Protein 6.8 g/dL Unknown COMPREHENSIVE METABOLIC 59429 Glucose 130 mg/dL 2019 Unknown COMPREHENSIVE METABOLIC 88331 Bicarbonate 29 mmol/L 05/07 Unknown COMPREHENSIVE METABOLIC 90177 AGAP 8 mmol/L 2019 Unknown MEAN GLUC 8511028 Calc Mean Gluc 146 mg/dL 05/24/2019 Unkn own GFR CALC [id number] GFR Non Afr Amr 56 mL/min 05/24/2019 Unk nown GFR CALC [id number] GFR Afr Amr >60 mL/min 05/24/2019 Unknow n MEAN GLUC 5985994 Calc Mean Gluc 140 mg/dL 01/26/2019 Unkn own GLYCOSYLATED HEMOGLOBIN TEST 62945 Hgb A1c 42662-2 6.5 % 1 Unknown COMPREHENSIVE METABOLIC 77370 AST 17 U/L 2018 Unknown COMPREHENSIVE METABOLIC 27982 ALT 19 U/L 2018 Unknown COMPREHENSIVE METABOLIC 48215 BUN 19 mg/dL 2018 Unknown COMPREHENSIVE METABOLIC 40219 ALBUMIN 4.3 g/dL 2018 Unknown COMPREHENSIVE METABOLIC 87624 CHLORIDE 103 mmol/L 01/26 Unknown COMPREHENSIVE METABOLIC 54524 Bili Total 0.6 mg/dL 01/26 Unknown COMPREHENSIVE METABOLIC 18025 ALK PHOS 60 U/L 2018 Unknown COMPREHENSIVE METABOLIC 21232 SODIUM 140 mmol/L 01/26 Unknown COMPREHENSIVE METABOLIC 70948 CREATININE 1.21 mg/dL 01/05 Unknown COMPREHENSIVE METABOLIC 59666 CALCIUM 9.6 mg/dL 2018 Unknown COMPREHENSIVE METABOLIC 13664 POTASSIUM 4.5 mmol/L 01/26 Unknown COMPREHENSIVE METABOLIC 63502 Total Protein 6.7 g/dL Unknown COMPREHENSIVE METABOLIC 78076 Glucose 111 mg/dL 2018 Unknown COMPREHENSIVE METABOLIC 52246 Bicarbonate 28 mmol/L 01/05 Unknown COMPREHENSIVE METABOLIC 17217 AGAP 9 mmol/L 2018 Unknown COMPLETE BLOOD COUNT [id number] WBC 10.7 10e9/L 019 Unknown COMPLETE BLOOD COUNT [id number] RBC 4.38 10e12/L 2018 Unknown COMPLETE BLOOD COUNT [id number] HEMOGLOBIN 13.7 g/dL 01/27/20 19 Unknown COMPLETE BLOOD COUNT [id number] HEMATOCRIT 42.0 % 01/27/20 19 Unknown COMPLETE BLOOD COUNT 9481086 MCV 95.9 fL 9 Unknown COMPLETE BLOOD COUNT [id number] MCH 31.3 pg 9 Unknown COMPLETE BLOOD COUNT 2009783 MCHC 32.6 g/dL 9 Unknown COMPLETE BLOOD COUNT 6664728 PLATELET COUNT 232 10e9/L Unknown COMPLETE BLOOD COUNT 0944170 Mean Plt Volume 11.4 fL Unknown COMPLETE BLOOD COUNT 7019054 Neut Auto 68.7 % 9 Unknown COMPLETE BLOOD COUNT 0552578 Lymph Auto 21.2 % 01/27/20 19 Unknown COMPLETE BLOOD COUNT 6625601 Cotton Auto 8.1 % 9 Unknown COMPLETE BLOOD COUNT 5134661 RDW 14.1 % 9 Unknown COMPLETE BLOOD COUNT 7462186 Eos Auto 1.8 % 9 Unknown COMPLETE BLOOD COUNT 5122321 Baso Auto 0.2 % 9 Unknown COMPLETE BLOOD COUNT 3656014 Neutrophil Abs 7.35 10e9/L Unknown COMPLETE BLOOD COUNT 7434995 Lymphocyte Abs 2.27 10e9/L Unknown COMPLETE BLOOD COUNT [id number] Monocyte Abs 0.87 10e9/L 01/05 Unknown COMPLETE BLOOD COUNT 3143073 Eosinophil Abs 0.19 10e9/L Unknown COMPLETE BLOOD COUNT 3459254 RDW-SD 47.7 fL 9 Unknown COMPLETE BLOOD COUNT [id number] Basophil Abs 0.02 10e9/L 01/05 Unknown GFR CALC [id number] GFR Non Afr Amr 59 mL/min 01/26/2019 Unk nown GFR CALC [id number] GFR Afr Amr >60 mL/min 01/26/2019 Unknow n LIPID GROUP 04455 Cholesterol 215 mg/dL 01/26/2019 Unkno wn LIPID GROUP 46438 Triglyceride 221 mg/dL 01/26/2019 Unkn own LIPID GROUP 45366 HDL CHOLESTEROL 41 mg/dL 01/26/2019 U nknown LIPID GROUP 49193 Chol/HDL Ratio 5.24 ratio 01/26/2019 U nknown LIPID GROUP 22438 NON-HDL Chol 174 mg/dL 01/26/2019 Unkn own LIPID GROUP 29009 LDL Cholesterol 130 mg/dL 01/26/2019 [place] [address] Glucose 104 mg/dL 09/30 [place] [address] CREATININE 1.18 mg/dL [place] [address] BUN 19 mg/dL 09/30 [place] [address] SODIUM 139 mmol/L 09/05 [place] [address] POTASSIUM 4.1 mmol/L 09/05 [place] [address] CHLORIDE 105 mmol/L 09/05 [place] [address] Bicarbonate 26 mmol/L [place] [address] AGAP 8 mmol/L 09/30 [place] [address] CALCIUM 9.3 mg/dL 09/30 Unknown GFR CALC [id number] GFR Non Afr Amr >60 mL/min 09/30/2018 Un known GFR CALC [id number] GFR Afr Amr >60 mL/min 09/30/2018 Unknow n MICROALBUMIN URINE RANDOM 07934 U Microalbumin <2.0 mg/L 08/19/2018 Unknown MICROALBUMIN URINE RANDOM 95426 U Creatinine 66 mg/dL 0 08/19/2018 Unknown MICROALBUMIN URINE RANDOM 34616 ALB/CR Ratio <3.0 mg/gCR 08/19/2018 Unknown COMPREHENSIVE METABOLIC 99646 AST 21 U/L 2018 Unknown COMPREHENSIVE METABOLIC 72211 ALT 20 U/L 2018 Unknown COMPREHENSIVE METABOLIC 10436 BUN 31 mg/dL 2018 Unknown COMPREHENSIVE METABOLIC 08640 ALBUMIN 4.4 g/dL 2018 Unknown COMPREHENSIVE METABOLIC 61072 CHLORIDE 105 mmol/L 08/16 Unknown COMPREHENSIVE METABOLIC 78127 Bili Total 0.5 mg/dL 08/16 Unknown COMPREHENSIVE METABOLIC 31979 ALK PHOS 40 U/L 2018 Unknown COMPREHENSIVE METABOLIC 03545 SODIUM 140 mmol/L 08/16 Unknown COMPREHENSIVE METABOLIC 68694 CREATININE 1.45 mg/dL 08/04 Unknown COMPREHENSIVE METABOLIC 26122 CALCIUM 9.8 mg/dL 2018 Unknown COMPREHENSIVE METABOLIC 80976 POTASSIUM 5.1 mmol/L 08/16 Unknown COMPREHENSIVE METABOLIC 62630 Total Protein 6.9 g/dL Unknown COMPREHENSIVE METABOLIC 36819 Glucose 110 mg/dL 2018 Unknown COMPREHENSIVE METABOLIC 40964 Bicarbonate 25 mmol/L 08/04 Unknown COMPREHENSIVE METABOLIC 32756 AGAP 10 mmol/L 2018 Unknown GFR CALC 1286343 GFR Non Afr Amr 48 mL/min 08/16/2018 Unk nown GFR CALC 5657056 GFR Afr Amr 58 mL/min 08/16/2018 Unknown GLYCOSYLATED HEMOGLOBIN TEST 18684 Hgb A1c 55526-1 .9 % 0 08/16/2018 Unknown LIPID GROUP 92833 Cholesterol 226 mg/dL 08/16/2018 Unkno wn LIPID GROUP 53121 Triglyceride 335 mg/dL 08/16/2018 Unkn own LIPID GROUP 03430 HDL CHOLESTEROL 32 mg/dL 08/16/2018 U nknown LIPID GROUP 49750 Chol/HDL Ratio 7.06 ratio 08/16/2018 U nknown LIPID GROUP 46029 NON-HDL Chol 194 mg/dL 08/16/2018 Unkn own LIPID GROUP 62440 LDL Cholesterol 127 mg/dL 08/16/2018 U nknown THYROID STIMULATING HORMONE 46976 TSH 2.475 uIU/mL 08/16/2018 Unknown COMPLETE BLOOD COUNT 0567878 WBC 7.5 10e9/L 08/17/19 19 Unknown COMPLETE BLOOD COUNT 2435407 RBC 4.09 10e12/L 2018 Unknown COMPLETE BLOOD COUNT 3973713 HEMOGLOBIN 12.9 g/dL 08/17/19 19 Unknown COMPLETE BLOOD COUNT 3561467 HEMATOCRIT 40.0 % 08/17/19 19 Unknown COMPLETE BLOOD COUNT 7371844 MCV 97.8 fL 9 Unknown COMPLETE BLOOD COUNT 2908504 MCH 31.5 pg 9 Unknown COMPLETE BLOOD COUNT 1030554 MCHC 32.3 g/dL 9 Unknown COMPLETE BLOOD COUNT 2344499 PLATELET COUNT 258 10e9/L Unknown COMPLETE BLOOD COUNT 9969885 Mean Plt Volume 11.4 fL Unknown COMPLETE BLOOD COUNT 8846481 Neut Auto 62.9 % 9 Unknown COMPLETE BLOOD COUNT 9042058 Lymph Auto 27.3 % 08/17/19 19 Unknown COMPLETE BLOOD COUNT 6831319 Cotton Auto 8.2 % 9 Unknown COMPLETE BLOOD COUNT 9199527 RDW 13.3 % 9 Unknown COMPLETE BLOOD COUNT 8492329 Eos Auto 1.5 % 9 Unknown COMPLETE BLOOD COUNT 0675709 Baso Auto 0.1 % 9 Unknown COMPLETE BLOOD COUNT 2824335 Neutrophil Abs 4.72 10e9/L Unknown COMPLETE BLOOD COUNT 6798691 Lymphocyte Abs 2.05 10e9/L Unknown COMPLETE BLOOD COUNT [id number] Monocyte Abs 0.62 10e9/L 08/04 Unknown COMPLETE BLOOD COUNT [id number] Eosinophil Abs 0.11 10e9/L Unknown COMPLETE BLOOD COUNT [id number] RDW-SD 46.7 fL 9 Unknown COMPLETE BLOOD COUNT [id number] Basophil Abs 0.01 10e9/L 08/04 Unknown MEAN GLUC [id number] Calc Mean Gluc 123 mg/dL 08/16/2018 Unkn own [facility] 01260 Cholesterol 212 mg/dL 05/05/2018 Unkno wn [facility] 10430 Triglyceride 271 mg/dL 05/05/2018 Unkn own [facility] 30099 HDL CHOLESTEROL 38 mg/dL 05/05/2018 U nknown L[facility] 52760 Chol/HDL Ratio 5.58 ratio 05/05/2018 U nknown L[facility] GROUP 95974 NON-HDL Chol 174 mg/dL 05/05/2018 Unkn own [facility] 21609 LDL Cholesterol 120 mg/dL 05/05/2018 U nknown GFR CALC [id number] GFR Non Afr Amr 49 mL/min 05/05/2018 Unk nown GFR CALC [id number] GFR Afr Amr 59 mL/min 05/05/2018 Unknown GLYCOSYLATED HEMOGLOBIN TEST 00714 Hgb A1c 26470-7 6.0 % 0 05/05/2018 Unknown MEAN GLUC [id number] Calc Mean Gluc 126 mg/dL 05/05/2018 Unkn own COMPREHENSIVE METABOLIC 78108 AST 18 U/L 2018 Unknown COMPREHENSIVE METABOLIC 79832 ALT 23 U/L 2018 Unknown COMPREHENSIVE METABOLIC 00505 BUN 30 mg/dL 2018 Unknown COMPREHENSIVE METABOLIC 50551 ALBUMIN 4.3 g/dL 2018 Unknown COMPREHENSIVE METABOLIC 57891 CHLORIDE 106 mmol/L 05/05 Unknown COMPREHENSIVE METABOLIC 87391 Bili Total 0.4 mg/dL 05/05 Unknown COMPREHENSIVE METABOLIC 44803 ALK PHOS 39 U/L 2018 Unknown COMPREHENSIVE METABOLIC 54133 SODIUM 139 mmol/L 05/05 Unknown COMPREHENSIVE METABOLIC 22350 CREATININE 1.44 mg/dL 04/08 Unknown COMPREHENSIVE METABOLIC 05599 CALCIUM 9.6 mg/dL 2018 Unknown COMPREHENSIVE METABOLIC 75360 POTASSIUM 4.7 mmol/L 05/05 Unknown COMPREHENSIVE METABOLIC 31377 Total Protein 6.6 g/dL Unknown COMPREHENSIVE METABOLIC 32150 Glucose 112 mg/dL 2018 Unknown COMPREHENSIVE METABOLIC 08099 Bicarbonate 28 mmol/L 04/08 Unknown COMPREHENSIVE METABOLIC 63383 AGAP 5 mmol/L 2018 Unknown THYROID STIMULATING HORMONE 18268 TSH 3.725 uIU/mL 05/05/2018 Unknown COMPLETE BLOOD COUNT 0898301 WBC 8.2 10e9/L 05/05/19 19 Unknown COMPLETE BLOOD COUNT [id number] RBC 4.02 10e12/L 2018 Unknown COMPLETE BLOOD COUNT 8284574 HEMOGLOBIN 12.7 g/dL 05/05/19 19 Unknown COMPLETE BLOOD COUNT [id number] HEMATOCRIT 39.3 % 05/05/19 19 Unknown COMPLETE BLOOD COUNT [id number] MCV 97.8 fL 9 Unknown COMPLETE BLOOD COUNT 2085096 MCH 31.6 pg 9 Unknown COMPLETE BLOOD COUNT 4021704 MCHC 32.3 g/dL 9 Unknown COMPLETE BLOOD COUNT 4708854 PLATELET COUNT 213 10e9/L Unknown COMPLETE BLOOD COUNT 6909984 Mean Plt Volume 11.7 fL Unknown COMPLETE BLOOD COUNT 7108998 Neut Auto 55.7 % 9 Unknown COMPLETE BLOOD COUNT 6101169 Lymph Auto 33.2 % 05/05/19 19 Unknown COMPLETE BLOOD COUNT [id number] Cotton Auto 8.5 % 9 Unknown COMPLETE BLOOD COUNT 5091180 RDW 13.9 % 9 Unknown COMPLETE BLOOD COUNT 7237184 Eos Auto 2.4 % 9 Unknown COMPLETE BLOOD COUNT 5999461 Baso Auto 0.2 % 9 Unknown COMPLETE BLOOD COUNT [id number] Neutrophil Abs 4.57 10e9/L Unknown COMPLETE BLOOD COUNT [id number] Lymphocyte Abs 2.72 10e9/L Unknown COMPLETE BLOOD COUNT [id number] Monocyte Abs 0.70 10e9/L 04/08 Unknown COMPLETE BLOOD COUNT [id number] Eosinophil Abs 0.20 10e9/L Unknown COMPLETE BLOOD COUNT [id number] RDW-SD 48.8 fL 9 Unknown COMPLETE BLOOD COUNT [id number] Basophil Abs 0.02 10e9/L 04/08 Unknown MICROALBUMIN URINE RANDOM 07700 U Microalbumin 19.3 mg/L 01/19/2018 Unknown MICROALBUMIN URINE RANDOM 20814 U Creatinine 96 mg/dL 1 Unknown MICROALBUMIN URINE RANDOM 48604 ALB/CR Ratio 20.1 mg/gCR 01/19/2018 Unknown LIPID GROUP 58176 Cholesterol 173 mg/dL 01/13/2018 Unkno wn LIPID GROUP 44799 Triglyceride 386 mg/dL 01/13/2018 Unkn own LIPID GROUP 95258 HDL CHOLESTEROL 37 mg/dL 01/13/2018 U nknown LIPID GROUP 56250 Chol/HDL Ratio 4.68 ratio 01/13/2018 U nknown LIPID GROUP 16838 NON-HDL Chol 136 mg/dL 01/13/2018 Unkn own LIPID GROUP 27119 LDL Cholesterol 59 mg/dL 01/13/2018 U nknown COMPLETE BLOOD COUNT 4047891 WBC TNP:Client Request 01/13/2018 Unknown COMPLETE BLOOD COUNT 1267237 RBC TNP:Client Request 01/13/2018 Unknown COMPLETE BLOOD COUNT [id number] HEMOGLOBIN TNP:Client Request 01/13/2018 Unknown COMPLETE BLOOD COUNT 0940796 HEMATOCRIT TNP:Client Request 01/13/2018 Unknown COMPLETE BLOOD COUNT 2078872 MCV TNP:Client Request 01/13/2018 Unknown COMPLETE BLOOD COUNT 5617643 MCH TNP:Client Request 01/13/2018 Unknown COMPLETE BLOOD COUNT [id number] MCHC TNP:Client Request 01/13/2018 Unknown COMPLETE BLOOD COUNT 1675349 PLATELET COUNT TNP:Client Req uest 01/13/2018 Unknown COMPLETE BLOOD COUNT 4122237 Mean Plt Volume TNP:Client Re quest 01/13/2018 Unknown COMPLETE BLOOD COUNT [id number] Neut Auto TNP:Client Request 01/13/2018 Unknown COMPLETE BLOOD COUNT [id number] Lymph Auto TNP:Client Request 01/13/2018 Unknown COMPLETE BLOOD COUNT [id number] Cotton Auto TNP:Client Request 01/13/2018 Unknown COMPLETE BLOOD COUNT [id number] RDW TNP:Client Request 01/13/2018 Unknown COMPLETE BLOOD COUNT [id number] Eos Auto TNP:Client Request 01/13/2018 Unknown COMPLETE BLOOD COUNT [id number] Baso Auto TNP:Client Request 01/13/2018 Unknown COMPLETE BLOOD COUNT [id number] Neutrophil Abs TNP:Client Req uest 01/13/2018 Unknown COMPLETE BLOOD COUNT [id number] Lymphocyte Abs TNP:Client Req uest 01/13/2018 Unknown COMPLETE BLOOD COUNT [id number] Monocyte Abs TNP:Client Reque st 01/13/2018 Unknown COMPLETE BLOOD COUNT [id number] Eosinophil Abs TNP:Client Req uest 01/13/2018 Unknown COMPLETE BLOOD COUNT [id number] RDW-SD TNP:Client Request 01/13/2018 Unknown COMPLETE BLOOD COUNT [id number] Basophil Abs TNP:Client Reque st 01/13/2018 Unknown GLYCOSYLATED HEMOGLOBIN TEST 51492 Hgb A1c 04993-6 6.2 % 1 Unknown THYROID STIMULATING HORMONE 92486 TSH 2.764 uIU/mL 01/13/2018 Unknown COMPREHENSIVE METABOLIC 44589 AST 19 U/L 2017 Unknown COMPREHENSIVE METABOLIC 32678 ALT 21 U/L 2017 Unknown COMPREHENSIVE METABOLIC 61160 BUN 16 mg/dL 2017 Unknown COMPREHENSIVE METABOLIC 87728 ALBUMIN 4.2 g/dL 2017 Unknown COMPREHENSIVE METABOLIC 80248 CHLORIDE 105 mmol/L 01/13 Unknown COMPREHENSIVE METABOLIC 14919 Bili Total 0.5 mg/dL 01/13 Unknown COMPREHENSIVE METABOLIC 71884 ALK PHOS 85 U/L 2017 Unknown COMPREHENSIVE METABOLIC 00620 SODIUM 139 mmol/L 01/13 Unknown COMPREHENSIVE METABOLIC 40472 CREATININE 1.07 mg/dL 01/04 Unknown COMPREHENSIVE METABOLIC 02845 CALCIUM 9.2 mg/dL 2017 Unknown COMPREHENSIVE METABOLIC 08997 POTASSIUM 4.4 mmol/L 01/13 Unknown COMPREHENSIVE METABOLIC 72669 Total Protein 7.7 g/dL Unknown COMPREHENSIVE METABOLIC 15755 Glucose 130 mg/dL 2017 Unknown COMPREHENSIVE METABOLIC 05650 Bicarbonate 27 mmol/L 01/04 Unknown COMPREHENSIVE METABOLIC 94464 AGAP 7 mmol/L 2017 Unknown PSA EQUIMOLAR JERSON 88520 PSA Total 1.16 ng/mL 8 Unknown MEAN GLUC 4332936 Calc Mean Gluc 131 mg/dL 01/13/2018 Unkn own GFR CALC 8135564 GFR Non Afr Amr >60 mL/min 01/13/2018 Un known GFR CALC 4400504 GFR Afr Amr >60 mL/min 01/13/2018 Unknow n MEAN GLUC 4554657 Calc Mean Gluc 134 mg/dL 10/06/2017 Unkn own GFR CALC 1537109 GFR Non Afr Amr >60 mL/min 10/06/2017 Un known GFR CALC 3041332 GFR Afr Amr >60 mL/min 10/06/2017 Unknow n GLYCOSYLATED HEMOGLOBIN TEST 73978 Hgb A1c 82733-3 6.3 % 0 10/06/2017 Unknown VITAMIN B 12 37932 VITAMIN B12 1202 pg/mL 10/06/2017 Unk nown COMPLETE BLOOD COUNT 0845345 WBC 7.4 10e9/L 10/07/19 18 Unknown COMPLETE BLOOD COUNT 8093159 RBC 4.24 10e12/L 2017 Unknown COMPLETE BLOOD COUNT 3969507 HEMOGLOBIN 13.5 g/dL 10/07/19 18 Unknown COMPLETE BLOOD COUNT 6705916 HEMATOCRIT 41.6 % 10/07/19 18 Unknown COMPLETE BLOOD COUNT 8216614 MCV 98.1 fL 8 Unknown COMPLETE BLOOD COUNT 0061266 MCH 31.8 pg 8 Unknown COMPLETE BLOOD COUNT 8133082 MCHC 32.5 g/dL 8 Unknown COMPLETE BLOOD COUNT 8343637 PLATELET COUNT 223 10e9/L 06/2017 Unknown COMPLETE BLOOD COUNT 5590553 Mean Plt Volume 11.9 fL 06/2017 Unknown COMPLETE BLOOD COUNT 4396045 Neut Auto 58.0 % 8 Unknown COMPLETE BLOOD COUNT 8399620 Lymph Auto 29.7 % 10/07/19 18 Unknown COMPLETE BLOOD COUNT 7703581 Cotton Auto 8.3 % 8 Unknown COMPLETE BLOOD COUNT 5857178 RDW 14.0 % 8 Unknown COMPLETE BLOOD COUNT 3538967 Eos Auto 3.7 % 8 Unknown COMPLETE BLOOD COUNT 8474039 Baso Auto 0.3 % 8 Unknown COMPLETE BLOOD COUNT 6462280 Neutrophil Abs 4.29 10e9/L Unknown COMPLETE BLOOD COUNT 0789956 Lymphocyte Abs 2.20 10e9/L Unknown COMPLETE BLOOD COUNT 0769312 Monocyte Abs 0.61 10e9/L 06/2017 Unknown COMPLETE BLOOD COUNT 4672812 Eosinophil Abs 0.27 10e9/L Unknown COMPLETE BLOOD COUNT 3158981 RDW-SD 48.6 fL 8 Unknown COMPLETE BLOOD COUNT 3800610 Basophil Abs 0.02 10e9/L 06/2017 Unknown LIPID GROUP 11706 Cholesterol 216 mg/dL 10/06/2017 Unkno wn LIPID GROUP 03533 Triglyceride 335 mg/dL 10/06/2017 Unkn own LIPID GROUP 94978 HDL CHOLESTEROL 33 mg/dL 10/06/2017 U nknown LIPID GROUP 49632 Chol/HDL Ratio 6.55 ratio 10/06/2017 U nknown LIPID GROUP 30907 NON-HDL Chol 183 mg/dL 10/06/2017 Unkn own LIPID GROUP 20045 LDL Cholesterol 116 mg/dL 10/06/2017 U nknown COMPREHENSIVE METABOLIC 48688 AST 15 U/L 2017 Unknown COMPREHENSIVE METABOLIC 53924 ALT 15 U/L 2017 Unknown COMPREHENSIVE METABOLIC 35306 BUN 21 mg/dL 2017 Unknown COMPREHENSIVE METABOLIC 01154 ALBUMIN 4.1 g/dL 2017 Unknown COMPREHENSIVE METABOLIC 16822 CHLORIDE 107 mmol/L 10/06 Unknown COMPREHENSIVE METABOLIC 89944 Bili Total 0.6 mg/dL 10/06 Unknown COMPREHENSIVE METABOLIC 58478 ALK PHOS 68 U/L 2017 Unknown COMPREHENSIVE METABOLIC 40893 SODIUM 140 mmol/L 10/06 Unknown COMPREHENSIVE METABOLIC 58844 CREATININE 1.12 mg/dL 06/2017 Unknown COMPREHENSIVE METABOLIC 61618 CALCIUM 9.7 mg/dL 2017 Unknown COMPREHENSIVE METABOLIC 60296 POTASSIUM 4.6 mmol/L 10/06 Unknown COMPREHENSIVE METABOLIC 67426 Total Protein 6.6 g/dL Unknown COMPREHENSIVE METABOLIC 93941 Glucose 114 mg/dL 2017 Unknown COMPREHENSIVE METABOLIC 69637 Bicarbonate 26 mmol/L 06/2017 Unknown COMPREHENSIVE METABOLIC 65589 AGAP 7 mmol/L 2017 Unknown GLYCOSYLATED HEMOGLOBIN TEST 38282 Hgb A1c 11965-0 6.1 % 1 05/05/2016 Unknown GFR CALC 5134864 GFR Non Afr Amr >60 mL/min 03/05/2017 Un known GFR CALC 8032752 GFR Afr Amr >60 mL/min 03/05/2017 Unknow n MEAN GLUC 7739104 Calc Mean Gluc 128 mg/dL 03/05/2017 Unkn own COMPREHENSIVE METABOLIC 70272 AST 18 U/L 2016 Unknown COMPREHENSIVE METABOLIC 08227 ALT 20 U/L 2016 Unknown COMPREHENSIVE METABOLIC 10596 BUN 15 mg/dL 2016 Unknown COMPREHENSIVE METABOLIC 44884 ALBUMIN 4.3 g/dL 2016 Unknown COMPREHENSIVE METABOLIC 08417 CHLORIDE 105 mmol/L 03/05 Unknown COMPREHENSIVE METABOLIC 78102 Bili Total 0.5 mg/dL 03/05 Unknown COMPREHENSIVE METABOLIC 21173 ALK PHOS 57 U/L 2016 Unknown COMPREHENSIVE METABOLIC 33623 SODIUM 141 mmol/L 03/05 Unknown COMPREHENSIVE METABOLIC 87433 CREATININE 1.07 mg/dL 02/06 Unknown COMPREHENSIVE METABOLIC 33805 CALCIUM 9.3 mg/dL 2016 Unknown COMPREHENSIVE METABOLIC 56661 POTASSIUM 4.8 mmol/L 03/05 Unknown COMPREHENSIVE METABOLIC 26077 Total Protein 6.2 g/dL Unknown COMPREHENSIVE METABOLIC 37233 Glucose 118 mg/dL 2016 Unknown COMPREHENSIVE METABOLIC 20506 Bicarbonate 29 mmol/L 02/06 Unknown COMPREHENSIVE METABOLIC 72392 AGAP 7 mmol/L 2016 Unknown FREE T4 72305 T4 Free 1.38 ng/dL 03/05/2017 Unknown COMPLETE BLOOD COUNT 0770308 WBC 8.4 10e9/L 03/05/20 17 Unknown COMPLETE BLOOD COUNT 3136056 RBC 4.11 10e12/L 2016 Unknown COMPLETE BLOOD COUNT 8356642 HEMOGLOBIN 12.8 g/dL 03/05/20 17 Unknown COMPLETE BLOOD COUNT 2966020 HEMATOCRIT 40.1 % 03/05/20 17 Unknown COMPLETE BLOOD COUNT 2426373 MCV 97.6 fL 7 Unknown COMPLETE BLOOD COUNT 4065152 MCH 31.1 pg 7 Unknown COMPLETE BLOOD COUNT 1483869 MCHC 31.9 g/dL 7 Unknown COMPLETE BLOOD COUNT 9259424 PLATELET COUNT 184 10e9/L Unknown COMPLETE BLOOD COUNT 6062854 Mean Plt Volume 11.3 fL Unknown COMPLETE BLOOD COUNT 5178856 Neut Auto 62.5 % 7 Unknown COMPLETE BLOOD COUNT 0559810 Lymph Auto 26.4 % 03/05/20 17 Unknown COMPLETE BLOOD COUNT 6652800 Cotton Auto 7.9 % 7 Unknown COMPLETE BLOOD COUNT 3387711 RDW 13.5 % 7 Unknown COMPLETE BLOOD COUNT 7953991 Eos Auto 3.0 % 7 Unknown COMPLETE BLOOD COUNT 6579772 Baso Auto 0.2 % 7 Unknown COMPLETE BLOOD COUNT 6296055 Neutrophil Abs 5.25 10e9/L Unknown COMPLETE BLOOD COUNT 4380600 Lymphocyte Abs 2.22 10e9/L Unknown COMPLETE BLOOD COUNT [id number] Monocyte Abs 0.66 10e9/L 02/06 Unknown COMPLETE BLOOD COUNT 1446302 Eosinophil Abs 0.25 10e9/L Unknown COMPLETE BLOOD COUNT 5332090 RDW-SD 46.7 fL 7 Unknown COMPLETE BLOOD COUNT [id number] Basophil Abs 0.02 10e9/L 02/06 Unknown THYROID STIMULATING HORMONE 07270 TSH 2.330 uIU/mL 03/05/2017 Unknown LIPID GROUP 47909 Cholesterol 135 mg/dL 03/05/2017 Unkno wn LIPID GROUP 48188 Triglyceride 297 mg/dL 03/05/2017 Unkn own LIPID GROUP 39841 HDL CHOLESTEROL 34 mg/dL 03/05/2017 U nknown LIPID GROUP 10961 Chol/HDL Ratio 3.97 ratio 03/05/2017 U nknown LIPID GROUP 51094 NON-HDL Chol 101 mg/dL 03/05/2017 Unkn own LIPID GROUP 41903 LDL Cholesterol 42 mg/dL 03/05/2017 U nknown GLYCOSYLATED HEMOGLOBIN TEST 85890 Hgb A1c 23672-9 6.5 % 1 05/07/2015 Unknown GFR CALC 3542812 GFR Non Afr Amr 55 mL/min 03/06/2016 Unk nown GFR CALC 8402101 GFR Afr Amr >60 mL/min 03/06/2016 Unknow n COMPLETE BLOOD COUNT 4637475 WBC 8.5 10e9/L 03/06/20 16 Unknown COMPLETE BLOOD COUNT 9704893 RBC 4.32 10e12/L 2015 Unknown COMPLETE BLOOD COUNT 0115074 HEMOGLOBIN 13.5 g/dL 03/06/20 16 Unknown COMPLETE BLOOD COUNT 5911011 HEMATOCRIT 41.3 % 03/06/20 16 Unknown COMPLETE BLOOD COUNT 0230588 MCV 95.6 fL 6 Unknown COMPLETE BLOOD COUNT 9528463 MCH 31.3 pg 6 Unknown COMPLETE BLOOD COUNT 4890679 MCHC 32.7 g/dL 6 Unknown COMPLETE BLOOD COUNT 7931767 PLATELET COUNT 191 10e9/L 04/2015 Unknown COMPLETE BLOOD COUNT 0002602 Mean Plt Volume 11.7 fL 04/2015 Unknown COMPLETE BLOOD COUNT [id number] Neut Auto 64.2 % 6 Unknown COMPLETE BLOOD COUNT 7515668 Lymph Auto 25.9 % 03/06/20 16 Unknown COMPLETE BLOOD COUNT 9437521 Cotton Auto 7.8 % 6 Unknown COMPLETE BLOOD COUNT 6467366 RDW 13.4 % 6 Unknown COMPLETE BLOOD COUNT 9468983 Eos Auto 2.0 % 6 Unknown COMPLETE BLOOD COUNT 8903884 Baso Auto 0.1 % 6 Unknown COMPLETE BLOOD COUNT [id number] Neutrophil Abs 5.46 10e9/L Unknown COMPLETE BLOOD COUNT 3430743 Lymphocyte Abs 2.20 10e9/L Unknown COMPLETE BLOOD COUNT 5944564 Monocyte Abs 0.66 10e9/L 04/2015 Unknown COMPLETE BLOOD COUNT 6578846 Eosinophil Abs 0.17 10e9/L Unknown COMPLETE BLOOD COUNT 7482425 RDW-SD 45.0 fL 6 Unknown COMPLETE BLOOD COUNT [id number] Basophil Abs 0.01 10e9/L 04/2015 Unknown FREE T4 19305 T4 Free 1.34 ng/dL 03/06/2016 Unknown MEAN GLUC 8052910 Calc Mean Gluc 140 mg/dL 03/06/2016 Unkn own COMPREHENSIVE METABOLIC 39018 AST 15 U/L 2015 Unknown COMPREHENSIVE METABOLIC 44056 ALT 18 U/L 2015 Unknown COMPREHENSIVE METABOLIC 40494 BUN 21 mg/dL 2015 Unknown COMPREHENSIVE METABOLIC 65357 ALBUMIN 4.3 g/dL 2015 Unknown COMPREHENSIVE METABOLIC 56212 CHLORIDE 103 mmol/L 03/06 Unknown COMPREHENSIVE METABOLIC 96202 Bili Total 0.4 mg/dL 03/06 Unknown COMPREHENSIVE METABOLIC 93788 ALK PHOS 68 U/L 2015 Unknown COMPREHENSIVE METABOLIC 58589 SODIUM 140 mmol/L 03/06 Unknown COMPREHENSIVE METABOLIC 49695 CREATININE 1.31 mg/dL 04/2015 Unknown COMPREHENSIVE METABOLIC 70276 CALCIUM 9.4 mg/dL 2015 Unknown COMPREHENSIVE METABOLIC 04647 POTASSIUM 4.8 mmol/L 03/06 Unknown COMPREHENSIVE METABOLIC 95374 Total Protein 6.6 g/dL Unknown COMPREHENSIVE METABOLIC 32397 Glucose 142 mg/dL 2015 Unknown COMPREHENSIVE METABOLIC 35332 Bicarbonate 29 mmol/L 04/2015 Unknown COMPREHENSIVE METABOLIC 62203 AGAP 8 mmol/L 2015 Unknown THYROID STIMULATING HORMONE 17587 TSH 2.288 uIU/mL 03/06/2016 Unknown LIPID GROUP 23077 Cholesterol 154 mg/dL 03/06/2016 Unkno wn LIPID GROUP 57084 Triglyceride 266 mg/dL 03/06/2016 Unkn own LIPID GROUP 04204 HDL CHOLESTEROL 38 mg/dL 03/06/2016 U nknown LIPID GROUP 71088 Chol/HDL Ratio 4.05 ratio 03/06/2016 U nknown LIPID GROUP 14633 NON-HDL Chol 116 mg/dL 03/06/2016 Unkn own LIPID GROUP 50264 LDL Cholesterol 63 mg/dL 03/06/2016 U nknown MEAN GLUC 4137670 Mean Glucose 128 mg/dL 08/31/2015 Unknow n COMPLETE BLOOD COUNT 0365105 WBC 8.4 10e9/L 08/31/19 16 Unknown COMPLETE BLOOD COUNT 1928796 RBC 4.12 10e12/L 2015 Unknown COMPLETE BLOOD COUNT 7089119 HEMOGLOBIN 12.8 g/dL 08/31/19 16 Unknown COMPLETE BLOOD COUNT 4294020 HEMATOCRIT 39.6 % 08/31/19 16 Unknown COMPLETE BLOOD COUNT 0946079 MCV 96.1 fL 6 Unknown COMPLETE BLOOD COUNT 7671762 MCH 31.1 pg 6 Unknown COMPLETE BLOOD COUNT 1050660 MCHC 32.3 g/dL 6 Unknown COMPLETE BLOOD COUNT 3587480 PLATELET COUNT 184 10e9/L Unknown COMPLETE BLOOD COUNT 2590292 Mean Plt Volume 12.0 fL Unknown COMPLETE BLOOD COUNT 3640632 Neut Auto 59.8 % 6 Unknown COMPLETE BLOOD COUNT 1749643 Lymph Auto 27.9 % 08/31/19 16 Unknown COMPLETE BLOOD COUNT 9179215 Cotton Auto 9.1 % 6 Unknown COMPLETE BLOOD COUNT 3863816 RDW 13.6 % 6 Unknown COMPLETE BLOOD COUNT 7799679 Eos Auto 3.1 % 6 Unknown COMPLETE BLOOD COUNT 1229113 Baso Auto 0.1 % 6 Unknown COMPLETE BLOOD COUNT 9107403 Neutrophil Abs 5.02 10e9/L Unknown COMPLETE BLOOD COUNT 8630857 Lymphoctye Abs 2.34 10e9/L Unknown COMPLETE BLOOD COUNT 4536379 Monocyte Abs 0.76 10e9/L 08/05 Unknown COMPLETE BLOOD COUNT 3630871 Eosinophil Abs 0.26 10e9/L Unknown COMPLETE BLOOD COUNT 4057314 RDW-SD 46.3 fL 6 Unknown COMPLETE BLOOD COUNT 7206766 Basophil Abs 0.01 10e9/L 08/05 Unknown GLYCOSYLATED HEMOGLOBIN TEST 51970 Hgb A1c 32657-4 6.1 % 0 08/31/2015 Unknown GFR CALC 3599773 GFR Non Afr Amr >60 mL/min 08/31/2015 Un known GFR CALC 5142499 GFR Afr Amr >60 mL/min 08/31/2015 Unknow n FREE T4 87206 T4 Free 1.21 ng/dL 08/31/2015 Unknown THYROID STIMULATING HORMONE 91597 TSH 2.988 uIU/mL 08/31/2015 Unknown COMPREHENSIVE METABOLIC 54591 AST 16 U/L 2015 Unknown COMPREHENSIVE METABOLIC 86821 ALT 19 U/L 2015 Unknown COMPREHENSIVE METABOLIC 22227 BUN 17 mg/dL 2015 Unknown COMPREHENSIVE METABOLIC 46699 ALBUMIN 4.3 g/dL 2015 Unknown COMPREHENSIVE METABOLIC 72703 CHLORIDE 107 mmol/L 08/30 Unknown COMPREHENSIVE METABOLIC 78118 Bili Total 0.4 mg/dL 08/30 Unknown COMPREHENSIVE METABOLIC 11208 ALK PHOS 66 U/L 2015 Unknown COMPREHENSIVE METABOLIC 77038 SODIUM 140 mmol/L 08/30 Unknown COMPREHENSIVE METABOLIC 26408 CREATININE 1.07 mg/dL 08/05 Unknown COMPREHENSIVE METABOLIC 31305 CALCIUM 9.5 mg/dL 2015 Unknown COMPREHENSIVE METABOLIC 87251 POTASSIUM 4.5 mmol/L 08/30 Unknown COMPREHENSIVE METABOLIC 71944 Total Protein 6.7 g/dL Unknown COMPREHENSIVE METABOLIC 03636 Glucose 122 mg/dL 2015 Unknown COMPREHENSIVE METABOLIC 99707 Bicarbonate 26 mmol/L 08/05 Unknown COMPREHENSIVE METABOLIC 60439 AGAP 7 mmol/L 2015 Unknown LIPID GROUP 86754 Cholesterol 171 mg/dL 08/31/2015 Unkno wn LIPID GROUP 61576 Triglyceride 428 mg/dL 08/31/2015 Unkn own LIPID GROUP 14096 HDL CHOLESTEROL 35 mg/dL 08/31/2015 U nknown LIPID GROUP 98922 Chol/HDL Ratio 4.89 ratio 08/31/2015 U nknon LIPID GROUP 47116 NON-HDL Chol 136 mg/dL 08/31/2015 Unkn own LIPID GROUP 73687 LDL Cholesterol 50 mg/dL 08/31/2015 U nknown PSA EQUIMOLAR JERSON 73334 PSA Total 0.47 ng/mL 6 Unknown GFR CALC 8433977 GFR AA >60 ML/MIN 01/12/2015 Unknown GFR CALC 9466479 GFR NON-AA >60 ML/MIN 01/12/2015 Unknown COMPREHENSIVE METABOLIC 49966 AST 18 U/L 2014 Unknown COMPREHENSIVE METABOLIC 96998 ALT 19 IU/L 2014 Unknown COMPREHENSIVE METABOLIC 77764 BUN 19 MG/DL 2014 Unknown COMPREHENSIVE METABOLIC 56036 ALBUMIN 4.7 GM/DL 2014 Unknown COMPREHENSIVE METABOLIC 92636 CHLORIDE 104 MMOL/L 01/12 Unknown COMPREHENSIVE METABOLIC 14585 BILI TOT 0.8 MG/DL 2014 Unknown COMPREHENSIVE METABOLIC 74407 ALK PHOS 58 U/L 2014 Unknown COMPREHENSIVE METABOLIC 21060 SODIUM 139 MMOL/L 01/12 Unknown COMPREHENSIVE METABOLIC 04462 CREATININE 1.09 MG/DL 12/2014 Unknown COMPREHENSIVE METABOLIC 70908 CALCIUM 9.6 MG/DL 2014 Unknown COMPREHENSIVE METABOLIC 81956 POTASSIUM 4.4 MMOL/L 01/12 Unknown COMPREHENSIVE METABOLIC 21609 PROT TOT 6.7 GM/DL 2014 Unknown COMPREHENSIVE METABOLIC 98448 Glucose 109 MG/DL 2014 Unknown COMPREHENSIVE METABOLIC 08311 BICARB 27 MMOL/L 2014 Unknown COMPREHENSIVE METABOLIC 91023 ANION GAP 8 MEQ/L 2014 Unknown LIPID GROUP 55868 HDL TEST 36 MG/DL 01/12/2015 Unknown LIPID GROUP 43288 TRIG 220 MG/DL 01/12/2015 Unknown LIPID GROUP 11490 TEST LDL 58 MG/DL 01/12/2015 Unknown LIPID GROUP 01098 CHOL 138 MG/DL 01/12/2015 Unknown LIPID GROUP 33623 RCHOL/HDL 3.83 RATIO 01/12/2015 Unknow n LIPID GROUP 60825 NON-HDL CH 102 MG/DL 01/12/2015 Unknow n GLYCOSYLATED HEMOGLOBIN TEST 78303 A1C HPLC 00716-5 6.1 % 1 Unknown COMPLETE BLOOD COUNT 1800283 WBC 7.1 10e9/L 01/13/20 15 Unknown COMPLETE BLOOD COUNT 5728903 RBC 4.38 10e12/L 2014 Unknown COMPLETE BLOOD COUNT 6452259 HGB 13.7 g/dL 5 Unknown COMPLETE BLOOD COUNT 2926713 HCT DET 41.3 % 5 Unknown COMPLETE BLOOD COUNT 6477401 MCV 94.3 fL 5 Unknown COMPLETE BLOOD COUNT 3582661 MCH 31.3 pg 5 Unknown COMPLETE BLOOD COUNT 5116296 MCHC 33.2 g/dL 5 Unknown COMPLETE BLOOD COUNT 7564254 PLT 174 10e9/L 01/13/20 15 Unknown COMPLETE BLOOD COUNT 5077956 MPV 11.8 fL 5 Unknown COMPLETE BLOOD COUNT 2314840 SAMIR % 61.3 % 5 Unknown COMPLETE BLOOD COUNT 8252334 LY % 28.3 % 5 Unknown COMPLETE BLOOD COUNT 9502788 MON % 7.6 % 5 Unknown COMPLETE BLOOD COUNT 9510735 EOS % 2.7 % 5 Unknown COMPLETE BLOOD COUNT 1321389 BASO % 0.1 % 5 Unknown COMPLETE BLOOD COUNT 2883102 RDW 13.1 % 5 Unknown COMPLETE BLOOD COUNT 0838561 ABS SAMIR 4.35 10e9/L 015 Unknown COMPLETE BLOOD COUNT 2777168 ABS LYMPH 2.01 10e9/L 015 Unknown COMPLETE BLOOD COUNT 9511732 ABS MONO 0.54 10e9/L 015 Unknown COMPLETE BLOOD COUNT 4804307 ABS EOS 0.19 10e9/L 015 Unknown COMPLETE BLOOD COUNT 4302251 ABS BASO 0.01 10e9/L 015 Unknown COMPLETE BLOOD COUNT 1254462 RDW-SD 43.9 fL 5 Unknown GLYCOSYLATED HEMOGLOBIN TEST 52295 A1C HPLC 70819-1 6.1 % 0 08/15/2014 Unknown COMPLETE BLOOD COUNT 1749373 WBC 9.7 10e9/L 08/16/19 15 Unknown COMPLETE BLOOD COUNT 6207440 RBC 4.29 10e12/L 2014 Unknown COMPLETE BLOOD COUNT 9245179 HGB 13.3 g/dL 5 Unknown COMPLETE BLOOD COUNT 7118737 HCT DET 40.5 % 5 Unknown COMPLETE BLOOD COUNT 3447977 MCV 94.4 fL 5 Unknown COMPLETE BLOOD COUNT 4960743 MCH 31.0 pg 5 Unknown COMPLETE BLOOD COUNT 1023251 MCHC 32.8 g/dL 5 Unknown COMPLETE BLOOD COUNT 4288414 PLT 227 10e9/L 08/16/19 15 Unknown COMPLETE BLOOD COUNT 5219388 MPV 11.0 fL 5 Unknown COMPLETE BLOOD COUNT 0479040 SAMIR % 66.4 % 5 Unknown COMPLETE BLOOD COUNT 2023616 LY % 23.7 % 5 Unknown COMPLETE BLOOD COUNT 9152649 MON % 8.1 % 5 Unknown COMPLETE BLOOD COUNT 7216434 EOS % 1.6 % 5 Unknown COMPLETE BLOOD COUNT 3368872 BASO % 0.2 % 5 Unknown COMPLETE BLOOD COUNT 2861670 RDW 13.4 % 5 Unknown COMPLETE BLOOD COUNT 3680591 ABS SAMIR 6.44 10e9/L 015 Unknown COMPLETE BLOOD COUNT 0599722 ABS LYMPH 2.30 10e9/L 015 Unknown COMPLETE BLOOD COUNT 6223466 ABS MONO 0.79 10e9/L 015 Unknown COMPLETE BLOOD COUNT 9866874 ABS EOS 0.16 10e9/L 015 Unknown COMPLETE BLOOD COUNT 3095618 ABS BASO 0.02 10e9/L 015 Unknown COMPLETE BLOOD COUNT 3431383 RDW-SD 44.7 fL 5 Unknown COMPREHENSIVE METABOLIC 34607 AST 17 U/L 2014 Unknown COMPREHENSIVE METABOLIC 75298 ALT 23 IU/L 2014 Unknown COMPREHENSIVE METABOLIC 31757 BUN 16 MG/DL 2014 Unknown COMPREHENSIVE METABOLIC 81012 ALBUMIN 4.3 GM/DL 2014 Unknown COMPREHENSIVE METABOLIC 30415 CHLORIDE 107 MMOL/L 08/15 Unknown COMPREHENSIVE METABOLIC 95362 BILI TOT 0.4 MG/DL 2014 Unknown COMPREHENSIVE METABOLIC 18223 ALK PHOS 91 U/L 2014 Unknown COMPREHENSIVE METABOLIC 04073 SODIUM 139 MMOL/L 08/15 Unknown COMPREHENSIVE METABOLIC 66253 CREATININE 1.07 MG/DL 08/04 Unknown COMPREHENSIVE METABOLIC 56987 CALCIUM 9.6 MG/DL 2014 Unknown COMPREHENSIVE METABOLIC 29971 POTASSIUM 4.6 MMOL/L 08/15 Unknown COMPREHENSIVE METABOLIC 87204 PROT TOT 6.7 GM/DL 2014 Unknown COMPREHENSIVE METABOLIC 29962 Glucose 111 MG/DL 2014 Unknown COMPREHENSIVE METABOLIC 23545 BICARB 27 MMOL/L 2014 Unknown COMPREHENSIVE METABOLIC 44156 ANION GAP 5 MEQ/L 2014 Unknown GFR CALC [id number] GFR AA >60 ML/MIN 08/15/2014 Unknown GFR CALC [id number] GFR NON-AA >60 ML/MIN 08/15/2014 Unknown THYROID STIMULATING HORMONE 91059 TSH 1.598 uIU/ML 08/15/2014 Unknown LIPID GROUP 40605 HDL TEST 33 MG/DL 08/15/2014 Unknown LIPID GROUP 99168 TRIG 187 MG/DL 08/15/2014 Unknown LIPID GROUP 50655 TEST LDL 58 MG/DL 08/15/2014 Unknown LIPID GROUP 29482 CHOL 128 MG/DL 08/15/2014 Unknown LIPID GROUP 84506 RCHOL/HDL 3.88 RATIO 08/15/2014 Unknow n LIPID GROUP 06230 NON-HDL CH 95 MG/DL 08/15/2014 Unknow n PSA EQUIMOLAR JERSON 83822 PSA EQ 0.70 NG/ML 5 Unknown FREE T4 85147 FREE T4 1.32 NG/DL 08/15/2014 Unknown GFR CALC [id number] GFR AA >60 ML/MIN 12/14/2013 Unknown GFR CALC 7962403 GFR NON-AA 58.0L ML/MIN 12/14/2013 Unkno wn COMPLETE BLOOD COUNT [id number] WBC 8.7 10e9/L 12/15/19 14 Unknown COMPLETE BLOOD COUNT [id number] RBC 4.32 10e12/L 2013 Unknown COMPLETE BLOOD COUNT 9845181 HGB 13.5 g/dL 4 Unknown COMPLETE BLOOD COUNT 2690127 HCT DET 40.6 % 4 Unknown COMPLETE BLOOD COUNT 4232926 MCV 94.0 fL 4 Unknown COMPLETE BLOOD COUNT 0433777 MCH 31.3 pg 4 Unknown COMPLETE BLOOD COUNT 9248320 MCHC 33.3 g/dL 4 Unknown COMPLETE BLOOD COUNT 1579885 PLT 205 10e9/L 12/15/19 14 Unknown COMPLETE BLOOD COUNT 1440072 MPV 11.7 fL 4 Unknown COMPLETE BLOOD COUNT [id number] SAMIR % 62.5 % 4 Unknown COMPLETE BLOOD COUNT 3763671 LY % 26.9 % 4 Unknown COMPLETE BLOOD COUNT [id number] MON % 8.8 % 4 Unknown COMPLETE BLOOD COUNT 8826350 EOS % 1.7 % 4 Unknown COMPLETE BLOOD COUNT 7586045 BASO % 0.1 % 4 Unknown COMPLETE BLOOD COUNT 3046929 RDW 13.4 % 4 Unknown COMPLETE BLOOD COUNT [id number] ABS SAMIR 5.44 10e9/L 014 Unknown COMPLETE BLOOD COUNT [id number] ABS LYMPH 2.34 10e9/L 014 Unknown COMPLETE BLOOD COUNT [id number] ABS MONO 0.77 10e9/L 014 Unknown COMPLETE BLOOD COUNT [id number] ABS EOS 0.15 10e9/L 014 Unknown COMPLETE BLOOD COUNT [id number] ABS BASO 0.01 10e9/L 014 Unknown COMPLETE BLOOD COUNT [id number] RDW-SD 44.7 fL 4 Unknown COMPREHENSIVE METABOLIC 16878 AST 14 U/L 2013 Unknown COMPREHENSIVE METABOLIC 40827 ALT 12 IU/L 2013 Unknown COMPREHENSIVE METABOLIC 57778 BUN 24 MG/DL 2013 Unknown COMPREHENSIVE METABOLIC 21926 ALBUMIN 4.5 GM/DL 2013 Unknown COMPREHENSIVE METABOLIC 76589 CHLORIDE 104 MMOL/L 12/14 Unknown COMPREHENSIVE METABOLIC 56903 BILI TOT 0.6 MG/DL 2013 Unknown COMPREHENSIVE METABOLIC 33331 ALK PHOS 82 U/L 2013 Unknown COMPREHENSIVE METABOLIC 58496 SODIUM 135 MMOL/L 12/14 Unknown COMPREHENSIVE METABOLIC 79006 CREATININE 1.25 MG/DL 12/05 Unknown COMPREHENSIVE METABOLIC 29920 CALCIUM 9.8 MG/DL 2013 Unknown COMPREHENSIVE METABOLIC 60968 POTASSIUM 4.7 MMOL/L 12/14 Unknown COMPREHENSIVE METABOLIC 89837 PROT TOT 6.7 GM/DL 2013 Unknown COMPREHENSIVE METABOLIC 13426 Glucose 126 MG/DL 2013 Unknown COMPREHENSIVE METABOLIC 03924 BICARB 27 MMOL/L 2013 Unknown COMPREHENSIVE METABOLIC 21403 ANION GAP 4 MEQ/L 2013 Unknown THYROID STIMULATING HORMONE 96387 TSH 3.281 uIU/ML 12/14/2013 Unknown FREE T4 56232 FREE T4 1.28 NG/DL 12/14/2013 Unknown LIPID GROUP 51688 HDL TEST 36 MG/DL 12/14/2013 Unknown LIPID GROUP 65623 TRIG 253 MG/DL 12/14/2013 Unknown LIPID GROUP 56306 TEST LDL 56 MG/DL 12/14/2013 Unknown LIPID GROUP 33122 CHOL 143 MG/DL 12/14/2013 Unknown LIPID GROUP 28401 RCHOL/HDL 3.97 RATIO 12/14/2013 Unknow n LIPID GROUP 83847 NON-HDL CH 107 MG/DL 12/14/2013 Unknow n GLYCOSYLATED HEMOGLOBIN TEST 92868 A1C HPLC 57900-3 6.1 % 0 12/14/2013 Unknown GLYCOSYLATED HEMOGLOBIN TEST 37150 A1C HPLC 36435-2 6.0 % 0 06/08/2013 Unknown LIPID GROUP 49993 HDL TEST 39 MG/DL 06/08/2013 Unknown LIPID GROUP 28132 TRIG 166 MG/DL 06/08/2013 Unknown LIPID GROUP 22832 TEST LDL 86 MG/DL 06/08/2013 Unknown LIPID GROUP 22947 CHOL 158 MG/DL 06/08/2013 Unknown LIPID GROUP 81944 RCHOL/HDL 4.05 RATIO 06/08/2013 Unknow n COMPREHENSIVE METABOLIC 78761 AST 17 U/L 2013 Unknown COMPREHENSIVE METABOLIC 65092 ALT 25 IU/L 2013 Unknown COMPREHENSIVE METABOLIC 69085 BUN 18 MG/DL 2013 Unknown COMPREHENSIVE METABOLIC 15399 ALBUMIN 4.5 GM/DL 2013 Unknown COMPREHENSIVE METABOLIC 58604 CHLORIDE 103 MMOL/L 06/08 Unknown COMPREHENSIVE METABOLIC 69054 BILI TOT 0.4 MG/DL 2013 Unknown COMPREHENSIVE METABOLIC 93692 ALK PHOS 72 U/L 2013 Unknown COMPREHENSIVE METABOLIC 29722 SODIUM 137 MMOL/L 06/08 Unknown COMPREHENSIVE METABOLIC 10560 CREATININE 1.07 MG/DL 08/2013 Unknown COMPREHENSIVE METABOLIC 20344 CALCIUM 9.7 MG/DL 2013 Unknown COMPREHENSIVE METABOLIC 84147 POTASSIUM 4.7 MMOL/L 06/08 Unknown COMPREHENSIVE METABOLIC 94874 PROT TOT 6.6 GM/DL 2013 Unknown COMPREHENSIVE METABOLIC 49028 Glucose 130 MG/DL 2013 Unknown COMPREHENSIVE METABOLIC 06938 BICARB 25 MMOL/L 2013 Unknown COMPREHENSIVE METABOLIC 81629 ANION GAP 9 MEQ/L 2013 Unknown FREE T4 11211 FREE T4 1.29 NG/DL 06/08/2013 Unknown THYROID STIMULATING HORMONE 94190 TSH 2.445 uIU/ML 06/08/2013 Unknown GFR CALC GFR AA >60 ML/MIN 06/08/2013 Unknown GFR CALC GFR NON-AA >60 ML/MIN 06/08/2013 Unknown COMPLETE BLOOD COUNT [id number] WBC 8.2 10e9/L 06/09/19 14 Unknown COMPLETE BLOOD COUNT [id number] RBC 4.63 10e12/L 2013 Unknown COMPLETE BLOOD COUNT 7123328 HGB 14.1 g/dL 4 Unknown COMPLETE BLOOD COUNT [id number] HCT DET 42.6 % 4 Unknown COMPLETE BLOOD COUNT 3812671 MCV 92.0 fL 4 Unknown COMPLETE BLOOD COUNT 7962557 MCH 30.5 pg 4 Unknown COMPLETE BLOOD COUNT 9169613 MCHC 33.1 g/dL 4 Unknown COMPLETE BLOOD COUNT [id number] PLT 222 10e9/L 06/09/19 14 Unknown COMPLETE BLOOD COUNT 5849363 MPV 10.8 fL 4 Unknown COMPLETE BLOOD COUNT 1863114 SAMIR % 60.8 % 4 Unknown COMPLETE BLOOD COUNT 1749698 LY % 29.2 % 4 Unknown COMPLETE BLOOD COUNT [id number] MON % 7.6 % 4 Unknown COMPLETE BLOOD COUNT [id number] EOS % 2.3 % 4 Unknown COMPLETE BLOOD COUNT [id number] BASO % 0.1 % 4 Unknown COMPLETE BLOOD COUNT [id number] RDW 13.7 % 4 Unknown COMPLETE BLOOD COUNT [id number] ABS SAMIR 4.99 10e9/L 014 Unknown COMPLETE BLOOD COUNT [id number] ABS LYMPH 2.39 10e9/L 014 Unknown COMPLETE BLOOD COUNT [id number] ABS MONO 0.62 10e9/L 014 Unknown COMPLETE BLOOD COUNT [id number] ABS EOS 0.19 10e9/L 014 Unknown COMPLETE BLOOD COUNT [id number] ABS BASO 0.01 10e9/L 014 Unknown COMPLETE BLOOD COUNT 7387652 RDW-SD 45.2 fL 4 Unknown LIPID GROUP 34651 HDL TEST 40 MG/DL 11/11/2012 Unknown LIPID GROUP 77264 TRIG 153 MG/DL 11/11/2012 Unknown LIPID GROUP 84986 TEST LDL 71 MG/DL 11/11/2012 Unknown LIPID GROUP 40684 CHOL 142 MG/DL 11/11/2012 Unknown LIPID GROUP 69957 RCHOL/HDL 3.55 RATIO 11/11/2012 Unknow n GFR CALC 5811870 GFR AA >60 ML/MIN 11/11/2012 Unknown GFR CALC 1086794 GFR NON-AA 57.0L ML/MIN 11/11/2012 Unkno wn HEMOGLOBIN A1C (GLYCOSYLATED) 5768912 A1C HPLC 17940-4 5.9 % 11/11/2012 Unknown THYROID STIMULATING HORMONE 20732 TSH 2.439 uIU/ML 11/11/2012 Unknown COMPLETE BLOOD COUNT [id number] WBC 8.5 10e9/L 11/12/19 13 Unknown COMPLETE BLOOD COUNT [id number] RBC 4.42 10e12/L 2012 Unknown COMPLETE BLOOD COUNT 2473886 HGB 13.7 g/dL 3 Unknown COMPLETE BLOOD COUNT [id number] HCT DET 41.3 % 3 Unknown COMPLETE BLOOD COUNT 0014152 MCV 93.4 fL 3 Unknown COMPLETE BLOOD COUNT 3249591 MCH 31.0 pg 3 Unknown COMPLETE BLOOD COUNT 8149247 MCHC 33.2 g/dL 3 Unknown COMPLETE BLOOD COUNT 5795218 PLT 220 10e9/L 11/12/19 13 Unknown COMPLETE BLOOD COUNT 8558474 MPV 10.8 fL 3 Unknown COMPLETE BLOOD COUNT 9417448 SAMIR % 60.4 % 3 Unknown COMPLETE BLOOD COUNT 4392428 LY % 28.7 % 3 Unknown COMPLETE BLOOD COUNT [id number] MON % 8.0 % 3 Unknown COMPLETE BLOOD COUNT 6098303 EOS % 2.8 % 3 Unknown COMPLETE BLOOD COUNT [id number] BASO % 0.1 % 3 Unknown COMPLETE BLOOD COUNT [id number] RDW 13.7 % 3 Unknown COMPLETE BLOOD COUNT [id number] ABS SAMIR 5.13 10e9/L 013 Unknown COMPLETE BLOOD COUNT [id number] ABS LYMPH 2.44 10e9/L 013 Unknown COMPLETE BLOOD COUNT [id number] ABS MONO 0.68 10e9/L 013 Unknown COMPLETE BLOOD COUNT [id number] ABS EOS 0.24 10e9/L 013 Unknown COMPLETE BLOOD COUNT [id number] ABS BASO 0.01 10e9/L 013 Unknown COMPLETE BLOOD COUNT [id number] RDW-SD 45.6 fL 3 Unknown COMPREHENSIVE METABOLIC 97362 AST 19 U/L 2012 Unknown COMPREHENSIVE METABOLIC 77343 ALT 28 IU/L 2012 Unknown COMPREHENSIVE METABOLIC 45849 BUN 31 MG/DL 2012 Unknown COMPREHENSIVE METABOLIC 22875 ALBUMIN 4.7 GM/DL 2012 Unknown COMPREHENSIVE METABOLIC 10314 CHLORIDE 106 MMOL/L 11/11 Unknown COMPREHENSIVE METABOLIC 55804 BILI TOT 0.5 MG/DL 2012 Unknown COMPREHENSIVE METABOLIC 79967 ALK PHOS 64 U/L 2012 Unknown COMPREHENSIVE METABOLIC 00051 SODIUM 136 MMOL/L 11/11 Unknown COMPREHENSIVE METABOLIC 93748 CREATININE 1.27 MG/DL 11/2012 Unknown COMPREHENSIVE METABOLIC 75865 CALCIUM 9.4 MG/DL 2012 Unknown COMPREHENSIVE METABOLIC 14033 POTASSIUM 4.9 MMOL/L 11/11 Unknown COMPREHENSIVE METABOLIC 68564 PROT TOT 6.7 GM/DL 2012 Unknown COMPREHENSIVE METABOLIC 73967 Glucose 108 MG/DL 2012 Unknown COMPREHENSIVE METABOLIC 59919 BICARB 21 MMOL/L 2012 Unknown COMPREHENSIVE METABOLIC 84290 ANION GAP 9 MEQ/L 2012 Unknown THYROID STIMULATING HORMONE 56059 TSH 2.572 uIU/ML 05/04/2012 Unknown COMPLETE BLOOD COUNT [id number] WBC 9.3 10e9/L 05/04/19 13 Unknown COMPLETE BLOOD COUNT [id number] RBC 4.43 10e12/L 2012 Unknown COMPLETE BLOOD COUNT 3081070 HGB 14.2 g/dL 3 Unknown COMPLETE BLOOD COUNT 9283782 HCT DET 41.1 % 3 Unknown COMPLETE BLOOD COUNT 3292644 MCV 92.8 fL 3 Unknown COMPLETE BLOOD COUNT 8284726 MCH 32.1 pg 3 Unknown COMPLETE BLOOD COUNT 6983628 MCHC 34.5 g/dL 3 Unknown COMPLETE BLOOD COUNT 1290779 PLT 193 10e9/L 05/04/19 13 Unknown COMPLETE BLOOD COUNT 2588239 MPV 10.8 fL 3 Unknown COMPLETE BLOOD COUNT 8753974 SAMIR % 63.0 % 3 Unknown COMPLETE BLOOD COUNT 2938592 LY % 25.3 % 3 Unknown COMPLETE BLOOD COUNT 0260776 MON % 9.1 % 3 Unknown COMPLETE BLOOD COUNT 7079022 EOS % 2.5 % 3 Unknown COMPLETE BLOOD COUNT [id number] BASO % 0.1 % 3 Unknown COMPLETE BLOOD COUNT 5880177 RDW 12.6 % 3 Unknown COMPLETE BLOOD COUNT [id number] ABS SAMIR 5.86 10e9/L 013 Unknown COMPLETE BLOOD COUNT [id number] ABS LYMPH 2.35 10e9/L 013 Unknown COMPLETE BLOOD COUNT [id number] ABS MONO 0.85 10e9/L 013 Unknown COMPLETE BLOOD COUNT [id number] ABS EOS 0.23 10e9/L 013 Unknown COMPLETE BLOOD COUNT [id number] ABS BASO 0.01 10e9/L 013 Unknown COMPLETE BLOOD COUNT 7750374 RDW-SD 41.2 fL 3 Unknown LIPID GROUP 91446 HDL TEST 35 MG/DL 05/04/2012 Unknown LIPID GROUP 66990 TRIG 236 MG/DL 05/04/2012 Unknown LIPID GROUP 80347 TEST LDL 64 MG/DL 05/04/2012 Unknown LIPID GROUP 54680 CHOL 146 MG/DL 05/04/2012 Unknown LIPID GROUP 31601 RCHOL/HDL 4.17 RATIO 05/04/2012 Unknow n COMPREHENSIVE METABOLIC 80520 AST 23 U/L 2012 Unknown COMPREHENSIVE METABOLIC 57874 ALT 33 IU/L 2012 Unknown COMPREHENSIVE METABOLIC 20996 BUN 16 MG/DL 2012 Unknown COMPREHENSIVE METABOLIC 70012 ALBUMIN 4.8 GM/DL 2012 Unknown COMPREHENSIVE METABOLIC 69535 CHLORIDE 104 MMOL/L 05/04 Unknown COMPREHENSIVE METABOLIC 48045 BILI TOT 0.5 MG/DL 2012 Unknown COMPREHENSIVE METABOLIC 83586 ALK PHOS 70 U/L 2012 Unknown COMPREHENSIVE METABOLIC 13115 SODIUM 138 MMOL/L 05/04 Unknown COMPREHENSIVE METABOLIC 69136 CREATININE 1.08 MG/DL 04/07 Unknown COMPREHENSIVE METABOLIC 50175 CALCIUM 9.7 MG/DL 2012 Unknown COMPREHENSIVE METABOLIC 47231 POTASSIUM 4.4 MMOL/L 05/04 Unknown COMPREHENSIVE METABOLIC 02175 PROT TOT 6.8 GM/DL 2012 Unknown COMPREHENSIVE METABOLIC 55025 Glucose 114 MG/DL 2012 Unknown COMPREHENSIVE METABOLIC 64651 BICARB 27 MMOL/L 2012 Unknown COMPREHENSIVE METABOLIC 92917 ANION GAP 7 MEQ/L 2012 Unknown FREE T4 49101 FREE T4 1.11 NG/DL 05/04/2012 Unknown GFR CALC 8323184 GFR AA >60 ML/MIN 05/04/2012 Unknown GFR CALC 2123439 GFR NON-AA >60 ML/MIN 05/04/2012 Unknown GLYCOSYLATED HEMOGLOBIN TEST 79613 A1C HPLC 22927-1 5.8 % 0 10/29/2011 Unknown COMPREHENSIVE METABOLIC 01419 AST 17 U/L 2011 Unknown COMPREHENSIVE METABOLIC 65704 ALT 21 IU/L 2011 Unknown COMPREHENSIVE METABOLIC 37917 BUN 17 MG/DL 2011 Unknown COMPREHENSIVE METABOLIC 63042 ALBUMIN 4.8 GM/DL 2011 Unknown COMPREHENSIVE METABOLIC 73357 CHLORIDE 106 MMOL/L 10/28 Unknown COMPREHENSIVE METABOLIC 40725 BILI TOT 0.6 MG/DL 2011 Unknown COMPREHENSIVE METABOLIC 87940 ALK PHOS 57 U/L 2011 Unknown COMPREHENSIVE METABOLIC 36729 SODIUM 139 MMOL/L 10/28 Unknown COMPREHENSIVE METABOLIC 23218 CREATININE 1.08 MG/DL 10/05 Unknown COMPREHENSIVE METABOLIC 60400 CALCIUM 9.6 MG/DL 2011 Unknown COMPREHENSIVE METABOLIC 48839 POTASSIUM 4.4 MMOL/L 10/28 Unknown COMPREHENSIVE METABOLIC 23627 PROT TOT 6.9 GM/DL 2011 Unknown COMPREHENSIVE METABOLIC 32229 Glucose 104 MG/DL 2011 Unknown COMPREHENSIVE METABOLIC 82411 BICARB 25 MMOL/L 2011 Unknown COMPREHENSIVE METABOLIC 68008 ANION GAP 8 MEQ/L 2011 Unknown LIPID GROUP 40037 HDL TEST 39 MG/DL 10/29/2011 Unknown LIPID GROUP 36527 TRIG 176 MG/DL 10/29/2011 Unknown LIPID GROUP 23806 TEST LDL 70 MG/DL 10/29/2011 Unknown LIPID GROUP 09361 CHOL 144 MG/DL 10/29/2011 Unknown LIPID GROUP 53762 RCHOL/HDL 3.69 RATIO 10/29/2011 Unknow n GFR CALC 5561954 GFR AA >60 ML/MIN 10/29/2011 Unknown GFR CALC 2870062 GFR NON-AA >60 ML/MIN 10/29/2011 Unknown GFR CALC 1632429 GFR AA >60 ML/MIN 03/14/2011 Unknown GFR CALC 3381882 GFR NON-AA >60 ML/MIN 03/14/2011 Unknown GLYCOSYLATED HEMOGLOBIN TEST 03157 A1C HPLC 77886-9 5.7 % 1 05/15/2010 Unknown COMPREHENSIVE METABOLIC 74264 AST 18 U/L 2010 Unknown COMPREHENSIVE METABOLIC 37894 ALT 25 IU/L 2010 Unknown COMPREHENSIVE METABOLIC 36797 BUN 15 MG/DL 2010 Unknown COMPREHENSIVE METABOLIC 27833 ALBUMIN 4.6 GM/DL 2010 Unknown COMPREHENSIVE METABOLIC 57445 CHLORIDE 107 MMOL/L 03/14 Unknown COMPREHENSIVE METABOLIC 31551 BILI TOT 0.6 MG/DL 2010 Unknown COMPREHENSIVE METABOLIC 90347 ALK PHOS 54 U/L 2010 Unknown COMPREHENSIVE METABOLIC 28201 SODIUM 140 MMOL/L 03/14 Unknown COMPREHENSIVE METABOLIC 05652 CREATININE 1.02 MG/DL 12/2010 Unknown COMPREHENSIVE METABOLIC 82110 CALCIUM 9.4 MG/DL 2010 Unknown COMPREHENSIVE METABOLIC 50996 POTASSIUM 4.6 MMOL/L 03/14 Unknown COMPREHENSIVE METABOLIC 65872 PROT TOT 7.0 GM/DL 2010 Unknown COMPREHENSIVE METABOLIC 61376 Glucose 107 MG/DL 2010 Unknown COMPREHENSIVE METABOLIC 76703 BICARB 28 MMOL/L 2010 Unknown COMPREHENSIVE METABOLIC 84464 ANION GAP 5 MEQ/L 2010 Unknown LIPID GROUP 10478 HDL TEST 39 MG/DL 03/14/2011 Unknown LIPID GROUP 81150 TRIG 157 MG/DL 03/14/2011 Unknown LIPID GROUP 28842 TEST LDL 66 MG/DL 03/14/2011 Unknown LIPID GROUP 19072 CHOL 136 MG/DL 03/14/2011 Unknown LIPID GROUP 96112 RCHOL/HDL 3.49 RATIO 03/14/2011 Unknow n GFR CALC 9143771 GFR AA >60 ML/MIN 11/11/2010 Unknown GFR CALC 0717906 GFR NON-AA >60 ML/MIN 11/11/2010 Unknown LIPID GROUP 44436 HDL TEST 39 MG/DL 11/11/2010 Unknown LIPID GROUP 86408 TRIG 212 MG/DL 11/11/2010 Unknown LIPID GROUP 86653 TEST LDL 67 MG/DL 11/11/2010 Unknown LIPID GROUP 07191 CHOL 148 MG/DL 11/11/2010 Unknown LIPID GROUP 26624 RCHOL/HDL 3.79 RATIO 11/11/2010 Unknow n COMPREHENSIVE METABOLIC 07782 AST 17 U/L 2010 Unknown COMPREHENSIVE METABOLIC 96600 ALT 21 IU/L 2010 Unknown COMPREHENSIVE METABOLIC 96517 BUN 16 MG/DL 2010 Unknown COMPREHENSIVE METABOLIC 12898 ALBUMIN 4.6 GM/DL 2010 Unknown COMPREHENSIVE METABOLIC 61699 CHLORIDE 106 MMOL/L 11/11 Unknown COMPREHENSIVE METABOLIC 24212 BILI TOT 0.5 MG/DL 2010 Unknown COMPREHENSIVE METABOLIC 69395 ALK PHOS 61 U/L 2010 Unknown COMPREHENSIVE METABOLIC 68192 SODIUM 139 MMOL/L 11/11 Unknown COMPREHENSIVE METABOLIC 01403 CREATININE 1.00 MG/DL 11/2010 Unknown COMPREHENSIVE METABOLIC 87898 CALCIUM 9.5 MG/DL 2010 Unknown COMPREHENSIVE METABOLIC 89698 POTASSIUM 4.5 MMOL/L 11/11 Unknown COMPREHENSIVE METABOLIC 87970 PROT TOT 6.9 GM/DL 2010 Unknown COMPREHENSIVE METABOLIC 24576 Glucose 111 MG/DL 2010 Unknown COMPREHENSIVE METABOLIC 60374 BICARB 26 MMOL/L 2010 Unknown COMPREHENSIVE METABOLIC 00649 ANION GAP 7 MEQ/L 2010 Unknown HEMOGLOBIN A1C (GLYCOSYLATED) 34163 A1C HPLC 76777-0 5.6 % 07/24/2010 Unknown GFR CALC 4355099 GFR AA >60 ML/MIN 07/23/2010 Unknown GFR CALC 0303619 GFR NON-AA >60 ML/MIN 07/23/2010 Unknown COMPREHENSIVE METABOLIC 51438 AST 19 U/L 2010 Unknown COMPREHENSIVE METABOLIC 74906 ALT 33 IU/L 2010 Unknown COMPREHENSIVE METABOLIC 37348 BUN 14 MG/DL 2010 Unknown COMPREHENSIVE METABOLIC 28051 ALBUMIN 4.7 GM/DL 2010 Unknown COMPREHENSIVE METABOLIC 69763 CHLORIDE 107 MMOL/L 07/23 Unknown COMPREHENSIVE METABOLIC 17366 BILI TOT 0.4 MG/DL 2010 Unknown COMPREHENSIVE METABOLIC 42256 ALK PHOS 80 U/L 2010 Unknown COMPREHENSIVE METABOLIC 61688 SODIUM 141 MMOL/L 07/23 Unknown COMPREHENSIVE METABOLIC 72550 CREATININE 0.97 MG/DL 07/05 Unknown COMPREHENSIVE METABOLIC 20636 CALCIUM 9.5 MG/DL 2010 Unknown COMPREHENSIVE METABOLIC 21442 POTASSIUM 4.1 MMOL/L 07/23 Unknown COMPREHENSIVE METABOLIC 68190 PROT TOT 6.8 GM/DL 2010 Unknown COMPREHENSIVE METABOLIC 80388 Glucose 120 MG/DL 2010 Unknown COMPREHENSIVE METABOLIC 42899 BICARB 26 MMOL/L 2010 Unknown COMPREHENSIVE METABOLIC 21575 ANION GAP 8 MEQ/L 2010 Unknown LIPID GROUP 77292 HDL TEST 41 MG/DL 07/23/2010 Unknown LIPID GROUP 47094 TRIG 175 MG/DL 07/23/2010 Unknown LIPID GROUP 10825 TEST LDL 72 MG/DL 07/23/2010 Unknown LIPID GROUP 45884 CHOL 148 MG/DL 07/23/2010 Unknown LIPID GROUP 79573 RCHOL/HDL 3.61 RATIO 07/23/2010 Unknow n PSA FREE AND TOTAL 17338|71329 % FREE PSA FOOTNOTE % 011 Unknown PSA FREE AND TOTAL 56007|55396 XPSA TOTAL 0.83 NG/ML 011 Unknown PSA FREE AND TOTAL 36444|67636 XPSA FREE 0.13 NG/ML 04/26/19 11 Unknown VITAMIN D TOTAL (25 HYDROXY) 55656 VIT D TOTL 26 NG/ML 04/22/2010 Unknown TESTOSTERONE TOTAL 13288 TESTOS TO 387 NG/DL 04/19/2010 Unknown GFR CALC 9154211 GFR AA >60 ML/MIN 04/19/2010 Unknown GFR CALC 7007690 GFR NON-AA >60 ML/MIN 04/19/2010 Unknown COMPLETE BLOOD COUNT 33688 WBC 7.0 10e9/L 04/19/19 11 Unknown COMPLETE BLOOD COUNT 91420 RBC 5.07 10e12/L 2010 Unknown COMPLETE BLOOD COUNT 24785 HGB 15.6 g/dL 1 Unknown COMPLETE BLOOD COUNT 93154 HCT DET 46.2 % 1 Unknown COMPLETE BLOOD COUNT 21507 MCV 91.1 fL 1 Unknown COMPLETE BLOOD COUNT 37991 MCH 30.8 pg 1 Unknown COMPLETE BLOOD COUNT 18476 MCHC 33.8 g/dL 1 Unknown COMPLETE BLOOD COUNT 08374 PLT 205 10e9/L 04/19/19 11 Unknown COMPLETE BLOOD COUNT 57553 MPV 11.1 fL 1 Unknown COMPLETE BLOOD COUNT 73059 SAMIR % 62.4 % 1 Unknown COMPLETE BLOOD COUNT 51027 LY % 28.5 % 1 Unknown COMPLETE BLOOD COUNT 89517 MON % 6.9 % 1 Unknown COMPLETE BLOOD COUNT 35798 EOS % 2.1 % 1 Unknown COMPLETE BLOOD COUNT 48012 BASO % 0.1 % 1 Unknown COMPLETE BLOOD COUNT 73146 RDW 13.4 % 1 Unknown COMPLETE BLOOD COUNT 48904 ABS SAMIR 4.37 10e9/L 011 Unknown COMPLETE BLOOD COUNT 83806 ABS LYMPH 2.00 10e9/L 011 Unknown COMPLETE BLOOD COUNT 31575 ABS MONO 0.48 10e9/L 011 Unknown COMPLETE BLOOD COUNT 72374 ABS EOS 0.15 10e9/L 011 Unknown COMPLETE BLOOD COUNT 17479 ABS BASO 0.01 10e9/L 011 Unknown COMPLETE BLOOD COUNT 66937 RDW-SD 43.8 fL 1 Unknown LIPID GROUP 33742 HDL TEST 39 MG/DL 04/19/2010 Unknown LIPID GROUP 77038 TRIG 244 MG/DL 04/19/2010 Unknown LIPID GROUP 60678 TEST LDL 168 MG/DL 04/19/2010 Unknown LIPID GROUP 54768 CHOL 256 MG/DL 04/19/2010 Unknown LIPID GROUP 86159 RCHOL/HDL 6.56 RATIO 04/19/2010 Unknow n COMPREHENSIVE METABOLIC 49255 AST 28 U/L 2010 Unknown COMPREHENSIVE METABOLIC 93238 ALT 46 IU/L 2010 Unknown COMPREHENSIVE METABOLIC 79129 BUN 14 MG/DL 2010 Unknown COMPREHENSIVE METABOLIC 49654 ALBUMIN 4.9 GM/DL 2010 Unknown COMPREHENSIVE METABOLIC 07909 CHLORIDE 104 MMOL/L 04/19 Unknown COMPREHENSIVE METABOLIC 40186 BILI TOT 0.8 MG/DL 2010 Unknown COMPREHENSIVE METABOLIC 13878 ALK PHOS 71 U/L 2010 Unknown COMPREHENSIVE METABOLIC 79295 SODIUM 139 MMOL/L 04/19 Unknown COMPREHENSIVE METABOLIC 13367 CREATININE 1.06 MG/DL 04/06 Unknown COMPREHENSIVE METABOLIC 18463 CALCIUM 9.9 MG/DL 2010 Unknown COMPREHENSIVE METABOLIC 20060 POTASSIUM 4.3 MMOL/L 04/19 Unknown COMPREHENSIVE METABOLIC 27852 PROT TOT 7.2 GM/DL 2010 Unknown COMPREHENSIVE METABOLIC 27590 Glucose 99 MG/DL 2010 Unknown COMPREHENSIVE METABOLIC 98662 BICARB 28 MMOL/L 2010 Unknown COMPREHENSIVE METABOLIC 64576 ANION GAP 7 MEQ/L 2010 Unknown FREE T4 26169 FREE T4 1.26 NG/DL 04/19/2010 Unknown Procedures Procedure Codes Date ROUTINE VENIPUNCTURE CPT-4: 82999 08/24/2019 COMPREHEN METABOLIC PANEL CPT-4: 08691 08/24/2019 A1C HPLC CPT-4: 44113 08/24/2019 ROUTINE VENIPUNCTURE CPT-4: 41518 05/24/2019 COMPREHEN METABOLIC PANEL CPT-4: 46382 05/24/2019 A1C HPLC CPT-4: 48058 05/24/2019 FLU VACC PRSV FREE INC ANTIG 65 AND OLDER CPT-4: 35474 01/26/2019 FLU VACC PRSV FREE INC ANTIG 65 AND OLDER CPT-4: 09014 01/26/2019 ADMIN INFLUENZA VIRUS VAC CPT-4: G0008 01/26/2019 ROUTINE VENIPUNCTURE CPT-4: 93458 01/26/2019 COMPREHEN METABOLIC PANEL CPT-4: 21640 01/26/2019 COMPLETE CBC W/AUTO DIFF WBC CPT-4: 84828 01/26/2019 LIPID PANEL CPT-4: 75888 01/26/2019 A1C HPLC CPT-4: 72236 01/26/2019 ROUTINE VENIPUNCTURE CPT-4: 41405 09/30/2018 METABOLIC PANEL TOTAL CA CPT-4: 15728 09/30/2018 URINALYSIS NONAUTO W/O SCOPE CPT-4: 89156 08/19/2018 URINE CULTURE/ COLONY COUNT CPT-4: 96074 08/19/2018 MICROALBUMIN QUANTITATIVE CPT-4: 57132 08/19/2018 ROUTINE VENIPUNCTURE CPT-4: 55820 08/16/2018 ASSAY THYROID STIM HORMONE CPT-4: 82746 08/16/2018 COMPREHEN METABOLIC PANEL CPT-4: 99821 08/16/2018 COMPLETE CBC W/AUTO DIFF WBC CPT-4: 92204 08/16/2018 LIPID PANEL CPT-4: 53381 08/16/2018 A1C HPLC CPT-4: 51196 08/16/2018 LIPID PANEL CPT-4: 86575 05/05/2018 COMPREHEN METABOLIC PANEL CPT-4: 74880 05/05/2018 ROUTINE VENIPUNCTURE CPT-4: 18090 05/05/2018 A1C HPLC CPT-4: 18908 05/05/2018 COMPLETE CBC W/AUTO DIFF WBC CPT-4: 17780 05/05/2018 ASSAY THYROID STIM HORMONE CPT-4: 94593 05/05/2018 MICROALBUMIN QUANTITATIVE CPT-4: 94573 01/19/2018 PRESCRIP TRANSMIT VIA ERX SY CPT-4: G8553 01/19/2018 ROUTINE VENIPUNCTURE CPT-4: 99853 01/13/2018 COMPREHEN METABOLIC PANEL CPT-4: 94554 01/13/2018 A1C HPLC CPT-4: 97969 01/13/2018 LIPID PANEL CPT-4: 56329 01/13/2018 ASSAY OF PSA TOTAL CPT-4: 41199 01/13/2018 ASSAY THYROID STIM HORMONE CPT-4: 01079 01/13/2018 ROUTINE VENIPUNCTURE CPT-4: 05516 10/06/2017 COMPREHEN METABOLIC PANEL CPT-4: 28298 10/06/2017 COMPLETE CBC W/AUTO DIFF WBC CPT-4: 85712 10/06/2017 LIPID PANEL CPT-4: 77226 10/06/2017 A1C HPLC CPT-4: 43699 10/06/2017 VITAMIN B-12 CPT-4: 00758 10/06/2017 DESTRUCT PREMALG LESION (Cryosurgery) CPT-4: 92833 DESTRUCT PREMALG LES 2-14 CPT-4: 26721 04/23/2017 PRESCRIP TRANSMIT VIA ERX SY CPT-4: G8553 03/11/2017 ROUTINE VENIPUNCTURE CPT-4: 28622 03/05/2017 ASSAY OF FREE THYROXINE CPT-4: 62263 03/05/2017 ASSAY THYROID STIM HORMONE CPT-4: 96120 03/05/2017 COMPREHEN METABOLIC PANEL CPT-4: 22231 03/05/2017 COMPLETE CBC W/AUTO DIFF WBC CPT-4: 01683 03/05/2017 LIPID PANEL CPT-4: 26236 03/05/2017 A1C HPLC CPT-4: 12877 03/05/2017 ROUTINE VENIPUNCTURE CPT-4: 19978 06/16/2016 ASSAY OF FREE THYROXINE CPT-4: 37839 06/16/2016 ASSAY THYROID STIM HORMONE CPT-4: 42888 06/16/2016 COMPREHEN METABOLIC PANEL CPT-4: 40288 06/16/2016 COMPLETE CBC W/AUTO DIFF WBC CPT-4: 39578 06/16/2016 LIPID PANEL CPT-4: 98655 06/16/2016 A1C HPLC CPT-4: 26789 06/16/2016 ROUTINE VENIPUNCTURE CPT-4: 93963 03/06/2016 ASSAY OF FREE THYROXINE CPT-4: 20168 03/06/2016 ASSAY THYROID STIM HORMONE CPT-4: 19363 03/06/2016 COMPREHEN METABOLIC PANEL CPT-4: 23290 03/06/2016 COMPLETE CBC W/AUTO DIFF WBC CPT-4: 62276 03/06/2016 LIPID PANEL CPT-4: 28413 03/06/2016 A1C HPLC CPT-4: 79174 03/06/2016 PRESCRIP TRANSMIT VIA ERX SY CPT-4: G8553 09/10/2015 PNEUMOCOCCAL VACC 23 ROSANNE IM CPT-4: 23010 09/06/2015 ADMIN PNEUMOCOCCAL VACCINE CPT-4: G0009 09/06/2015 ROUTINE VENIPUNCTURE CPT-4: 82522 08/31/2015 COMPREHEN METABOLIC PANEL CPT-4: 92091 08/31/2015 COMPLETE CBC W/AUTO DIFF WBC CPT-4: 13047 08/31/2015 LIPID PANEL CPT-4: 38112 08/31/2015 ASSAY OF PSA TOTAL CPT-4: 00518 08/31/2015 A1C HPLC CPT-4: 71026 08/31/2015 ASSAY OF FREE THYROXINE CPT-4: 19255 08/31/2015 ASSAY THYROID STIM HORMONE CPT-4: 85961 08/31/2015 PRESCRIP TRANSMIT VIA ERX SY CPT-4: G8553 06/29/2015 FLU VACC PRSV FREE INC ANTIG 65 AND OLDER CPT-4: 39262 01/17/2015 PNEUMOCOCCAL VACC 13 ROSANNE IM CPT-4: 70500 01/17/2015 ADMIN INFLUENZA VIRUS VAC CPT-4: G0008 01/17/2015 ADMIN PNEUMOCOCCAL VACCINE CPT-4: G0009 01/17/2015 DESTRUCT PREMALG LESION (Cryosurgery) CPT-4: 16712 PRESCRIP TRANSMIT VIA ERX SY CPT-4: G8553 01/17/2015 ROUTINE VENIPUNCTURE CPT-4: 08629 01/12/2015 COMPREHEN METABOLIC PANEL CPT-4: 55713 01/12/2015 COMPLETE CBC W/AUTO DIFF WBC CPT-4: 40673 01/12/2015 LIPID PANEL CPT-4: 72265 01/12/2015 A1C HPLC CPT-4: 05644 01/12/2015 DESTRUCT PREMALG LESION (Cryosurgery) CPT-4: 22391 ROUTINE VENIPUNCTURE CPT-4: 57785 08/15/2014 COMPREHEN METABOLIC PANEL CPT-4: 35091 08/15/2014 COMPLETE CBC W/AUTO DIFF WBC CPT-4: 82958 08/15/2014 LIPID PANEL CPT-4: 64638 08/15/2014 A1C HPLC CPT-4: 35448 08/15/2014 ASSAY OF PSA TOTAL CPT-4: 02728 08/15/2014 ASSAY OF FREE THYROXINE CPT-4: 31810 08/15/2014 ASSAY THYROID STIM HORMONE CPT-4: 34397 08/15/2014 ROUTINE VENIPUNCTURE CPT-4: 78353 12/14/2013 ASSAY OF FREE THYROXINE CPT-4: 86464 12/14/2013 ASSAY THYROID STIM HORMONE CPT-4: 10765 12/14/2013 COMPREHEN METABOLIC PANEL CPT-4: 39930 12/14/2013 COMPLETE CBC W/AUTO DIFF WBC CPT-4: 11972 12/14/2013 LIPID PANEL CPT-4: 88340 12/14/2013 A1C HPLC CPT-4: 72736 12/14/2013 ROUTINE VENIPUNCTURE CPT-4: 59840 06/08/2013 ASSAY OF FREE THYROXINE CPT-4: 49716 06/08/2013 ASSAY THYROID STIM HORMONE CPT-4: 40048 06/08/2013 COMPREHEN METABOLIC PANEL CPT-4: 55632 06/08/2013 COMPLETE CBC W/AUTO DIFF WBC CPT-4: 49903 06/08/2013 LIPID PANEL CPT-4: 71189 06/08/2013 A1C HPLC CPT-4: 43088 06/08/2013 ROUTINE VENIPUNCTURE CPT-4: 15837 11/11/2012 COMPREHEN METABOLIC PANEL CPT-4: 18149 11/11/2012 COMPLETE CBC W/AUTO DIFF WBC CPT-4: 59505 11/11/2012 LIPID PANEL CPT-4: 31270 11/11/2012 A1C GLYCOSYLATED HEMOGLOBIN TEST CPT-4: 14194 013 ASSAY THYROID STIM HORMONE CPT-4: 10246 11/11/2012 ROUTINE VENIPUNCTURE CPT-4: 45504 05/04/2012 ASSAY OF FREE THYROXINE CPT-4: 47822 05/04/2012 ASSAY THYROID STIM HORMONE CPT-4: 88720 05/04/2012 COMPREHEN METABOLIC PANEL CPT-4: 03689 05/04/2012 COMPLETE CBC W/AUTO DIFF WBC CPT-4: 82547 05/04/2012 LIPID PANEL CPT-4: 44112 05/04/2012 DESTRUCT PREMALG LESION (Cryosurgery) CPT-4: 88382 DESTRUCT PREMALG LES 2-14 CPT-4: 41328 03/02/2012 ROUTINE VENIPUNCTURE CPT-4: 24430 10/29/2011 COMPREHEN METABOLIC PANEL CPT-4: 80418 10/29/2011 LIPID PANEL CPT-4: 89275 10/29/2011 A1C GLYCOSYLATED HEMOGLOBIN TEST CPT-4: 10632 012 ROUTINE VENIPUNCTURE CPT-4: 23158 07/29/2011 COMPREHEN METABOLIC PANEL CPT-4: 40942 07/29/2011 LIPID PANEL CPT-4: 83120 07/29/2011 A1C GLYCOSYLATED HEMOGLOBIN TEST CPT-4: 33924 012 ROUTINE VENIPUNCTURE CPT-4: 14160 03/14/2011 COMPREHEN METABOLIC PANEL CPT-4: 12306 03/14/2011 LIPID PANEL CPT-4: 01303 03/14/2011 A1C GLYCOSYLATED HEMOGLOBIN TEST CPT-4: 43794 011 ROUTINE VENIPUNCTURE CPT-4: 96118 11/11/2010 COMPREHEN METABOLIC PANEL CPT-4: 86278 11/11/2010 LIPID PANEL CPT-4: 95526 11/11/2010 URINE CULTURE/ COLONY COUNT CPT-4: 00127 11/11/2010 URINALYSIS NONAUTO W/O SCOPE CPT-4: 50670 10/29/2010 URINE CULTURE/ COLONY COUNT CPT-4: 56136 10/29/2010 LIPID PANEL CPT-4: 81357 07/23/2010 COMPREHEN METABOLIC PANEL CPT-4: 86035 07/23/2010 ROUTINE VENIPUNCTURE CPT-4: 12685 07/23/2010 ROUTINE VENIPUNCTURE CPT-4: 04953 04/26/2010 PSA FREE AND TOTAL CPT-4: 68924|10772 04/26/2010 OCCULT BLOOD FECES CPT-4: 41142 04/24/2010 ROUTINE VENIPUNCTURE CPT-4: 10830 04/19/2010 COMPLETE CBC W/AUTO DIFF WBC CPT-4: 69411 04/19/2010 COMPREHEN METABOLIC PANEL CPT-4: 94768 04/19/2010 LIPID PANEL CPT-4: 36792 04/19/2010 TESTOSTERONE TOTAL - MALE CPT-4: 57567 04/19/2010 ASSAY THYROID STIM HORMONE CPT-4: 39702 04/19/2010 ASSAY OF FREE THYROXINE CPT-4: 59602 04/19/2010 VITAMIN D TOTAL (25 HYDROXY) CPT-4: 36810 04/19/2010 Vital Signs Date Vital 06/02/2019 Blood Pressure 1: 132/80 Code: 8480-6 BMI: 29.5 Code: 17179-4 Heart Rate 1: 64 bpm Height: 6'3" [...] 1: 112/70 Code: 8480-6 BMI: 28.9 Code: 90120-7 Heart Rate 1: 60 bpm Height: 6'3" Respiratory Rate: 20 bpm SpO2: 95% Tempera ture: 36.6 (C) / 97.9 (F) Weight: 231 lbs 01/19/2018 Blood Pressure 1: 150/82 Code: 8480-6 Heart Rate 1: 63 bpm Respiratory Rate: 18 bpm SpO2: 98% Temperature: 36.0 (C) / 96.8 (F) We ight: 225 lbs 10/15/2017 Blood Pressure 1: 126/82 Code: 8480-6 BMI: 27.9 Code: 23013-0 Heart Rate 1: 64 bpm Height: 6'3" Respiratory Rate: 20 bpm SpO2: 96% Tempera ture: 36.7 (C) / 98.1 (F) Weight: 223 lbs 04/23/2017 Blood Pressure 1: 136/74 Code: 8480-6 BMI: 28.7 Code: 28314-0 Heart Rate 1: 76 bpm Height: 6'3" Respiratory Rate: 20 bpm Temperature: 37 .0 (C) / 98.6 (F) Weight: 230 lbs 03/11/2017 Blood Pressure 1: 136/66 Code: 8480-6 BMI: 28.6 Code: 28644-2 Heart Rate 1: 60 bpm Height: 6'3" Respiratory Rate: 20 bpm Temperature: 36 .7 (C) / 98.1 (F) Weight: 229 lbs 07/09/2016 Blood Pressure 1: 132/80 Code: 8480-6 BMI: 27.7 Code: 29986-2 Heart Rate 1: 64 bpm Height: 6'3" Respiratory Rate: 20 bpm SpO2: 96% Tempera ture: 36.9 (C) / 98.4 (F) Weight: 222 lbs 03/10/2016 Blood Pressure 1: 134/78 Code: 8480-6 BMI: 28.5 Code: 53305-0 Heart Rate 1: 60 bpm Height: 6'3" Respiratory Rate: 20 bpm SpO2: 96% Tempera ture: 36.7 (C) / 98.1 (F) Weight: 228 lbs 09/12/2015 Blood Pressure 1: 136/78 Code: 8480-6 Heart Rate 1: 84 bpm Height: Respiratory Rate: 24 bpm SpO2: 97% Temperature: 36.4 (C) / 97.6 (F) We ight: 09/10/2015 Blood Pressure 1: 124/76 Code: 8480-6 BMI: 28.5 Code: 73056-2 Heart Rate 1: 76 bpm Height: 6'3" Respiratory Rate: 24 bpm SpO2: 97% Tempera ture: 36.4 (C) / 97.6 (F) Weight: 228 lbs 09/06/2015 Blood Pressure 1: 124 Code: 8480-6 BMI: 29.0 Code: 21821-0 Heart Rate 1: 66 bpm Height: 6'3" Respiratory Rate: 20 bpm SpO2: 97% Tempera ture: 36.4 (C) / 97.6 (F) Weight: 232 lbs 06/29/2015 Blood Pressure 1: 124 Code: 8480-6 Heart Rate 1: 88 bpm Height: Respiratory Rate: 20 bpm Temperature: 36.7 (C) / 98.1 (F) Weight: 01/17/2015 Blood Pressure 1: 124 Code: 8480-6 BMI: 27.7 Code: 85984-8 Heart Rate 1: 76 bpm Height: 6'3" Respiratory Rate: 20 bpm Temperature: 36 .6 (C) / 97.8 (F) Weight: 222 lbs 09/19/2014 Blood Pressure 1: 12880 Code: 8480-6 BMI: 27.4 Code: 60074-5 Heart Rate 1: 64 bpm Height: 6'3" Respiratory Rate: 20 bpm Temperature: 36 .4 (C) / 97.6 (F) Weight: 219 lbs 10/17/2013 Blood Pressure 1: 116/70 Code: 8480-6 Heart Rate 1: 88 bpm Respiratory Rate: 20 bpm Temperature: 36.9 (C) / 98.4 (F) Weight: 220 lbs 09/23/2013 Blood Pressure 1: 12480 Code: 8480-6 BMI: 28.7 Code: 42745-7 Heart Rate 1: 76 bpm Height: 6'3" Respiratory Rate: 20 bpm Temperature: 36 .8 (C) / 98.2 (F) Weight: 230 lbs 07/22/2013 Blood Pressure 1: 128/70 Code: 8480-6 He art Rate 1: 78 bpm 06/20/2013 Blood Pressure 1: 144/86 Code: 8480-6 BMI: 28.7 Code: 45496-2 Heart Rate 1: 92 bpm Height: 6'3" Respiratory Rate: 20 bpm Temperature: 36 .4 (C) / 97.6 (F) Weight: 230 lbs 11/25/2012 Blood Pressure 1: 128/80 Code: 8480-6 BMI: 27.5 Code: 45462-9 Heart Rate 1: 92 bpm Height: 6'3" Respiratory Rate: 20 bpm Temperature: 36 .8 (C) / 98.3 (F) Weight: 220 lbs 08/27/2012 Blood Pressure 1: 142/80 Code: 8480-6 BMI: 27.7 Code: 75304-1 Heart Rate 1: 76 bpm Height: 6'3" Respiratory Rate: 20 bpm Temperature: 36 .8 (C) / 98.3 (F) Weight: 222 lbs 05/11/2012 Blood Pressure 1: 136/80 Code: 8480-6 BMI: 27.7 Code: 67657-9 Heart Rate 1: 76 bpm Height: 6'3" Respiratory Rate: 20 bpm Temperature: 36 .8 (C) / 98.3 (F) Weight: 222 lbs 03/02/2012 Blood Pressure 1: 136/70 Code: 8480-6 BMI: 28.0 Code: 94403-9 Heart Rate 1: 80 bpm Height: 6'3" Respiratory Rate: 20 bpm Temperature: 36 .6 (C) / 97.8 (F) Weight: 224 lbs 12/11/2011 Blood Pressure 1: 142/80 Code: 8480-6 BMI: 27.1 Code: 49814-5 Heart Rate 1: 84 bpm Height: 6'3" Respiratory Rate: 20 bpm Temperature: 36 .9 (C) / 98.4 (F) Weight: 217 lbs 08/14/2011 Blood Pressure 1: 130/82 Code: 8480-6 He art Rate 1: 64 bpm 07/29/2011 Blood Pressure 1: 132/64 Code: 8480-6 BMI: 26.7 Code: 02693-9 Heart Rate 1: 72 bpm Height: 6'3" [...] 1: 142/88 Code: 8480-6 BMI: 26.4 Code: 61321-6 Heart Rate 1: 80 bpm Height: 6'3" [...] labs Encounters Encounter Performer Location Codes Date ([id number]) NURSE/OUTPATIENT VISIT EST Diagnosis: Essential (primary) hypertension[ICD10: I10] Diagnosis: Type 2 diabetes mellitus with hyperglycemia[ICD10: E11.65] Najma MCARTHUR [employer] CPT-4: 58772 08/24/2019 ([id number]) OFFICE/OUTPATIENT VISIT EST Diagnosis: Essential (primary) hypertension[ICD10: I10] Diagnosis: Gastro-esophageal reflux disease without esophagitis[ICD10: K21.9] Diagnosis: Type 2 diabetes mellitus with hyperglycemia[ICD10: E11.65] Najma MCARTHUR [employer]Matilde [employer] CPT-4: 26091 06/02/2019 ([id number]) NURSE/OUTPATIENT VISIT EST Diagnosis: Type 2 diabetes mellitus without complications[ICD10: E11.9] Diagnosis: Essential (primary) hypertension[ICD10: I10] Diagnosis: Mixed hyperlipidemia[ICD10: E78.2] Najma GODINEZ [employer]ilde [employer] CPT-4: 26485 05/24/2019 ([id number]) OFFICE/OUTPATIENT VISIT EST Diagnosis: Essential (primary) hypertension[ICD10: I10] Diagnosis: Type 2 diabetes mellitus without complications[ICD10: E11.9] Diagnosis: Mixed hyperlipidemia[ICD10: E78.2] Najma GODINEZ [facility] CPT-4: 18776 01/31/2019 ([id number]) NURSE/OUTPATIENT VISIT EST Diagnosis: Mixed hyperlipidemia[ICD10: E78.2] Diagnosis: Type 2 diabetes mellitus without complications[ICD10: E11.9] Diagnosis: Essential (primary) hypertension[ICD10: I10] Diagnosis: Chronic kidney disease, unspecified[ICD10: N18.9] Najma OG [employer] CPT-4: 81714 01/26/2019 ([id number]) NURSE/OUTPATIENT VISIT EST Diagnosis: Chronic kidney disease, unspecified[ICD10: N18.9] Diagnosis: Essential (primary) hypertension[ICD10: I10] Najma SAMSONAntenna SoftwareBIJAN [employer] CPT-4: 26992 09/30/2018 ([id number]) OFFICE/OUTPATIENT VISIT EST Diagnosis: Essential (primary) hypertension[ICD10: I10] Diagnosis: Type 2 diabetes mellitus without complications[ICD10: E11.9] Diagnosis: Mixed hyperlipidemia[ICD10: E78.2] Diagnosis: Unspecified kidney failure[ICD10: N19] Najma HAQUE ADELA [facility]ilde [facility] CPT-4: 34669 08/19/2018 ([id number]) NURSE/OUTPATIENT VISIT EST Diagnosis: Essential (primary) hypertension[ICD10: I10] Diagnosis: Type 1 diabetes mellitus with unspecified complications[ICD10: E10.8] Diagnosis: Mixed hyperlipidemia[ICD10: E78.2] Najma MANUELEVELINA GRETCHEN [facility] CPT-4: 21170 08/16/2018 ([id number]) OFFICE/OUTPATIENT VISIT EST Diagnosis: Essential (primary) hypertension[ICD10: I10] Diagnosis: Type 2 diabetes mellitus without complications[ICD10: E11.9] Diagnosis: Mixed hyperlipidemia[ICD10: E78.2] Najmaanaid Og ANUM GRETCHEN [employer] CPT-4: 97727 05/10/2018 ([id number]) NURSE/OUTPATIENT VISIT EST Diagnosis: Essential (primary) hypertension[ICD10: I10] Diagnosis: Mixed hyperlipidemia[ICD10: E78.2] Diagnosis: Type 1 diabetes mellitus with unspecified complications[ICD10: E10.8] Najma OG [employer] [facility] CPT-4: 18324 05/05/2018 ([id number]) OFFICE/OUTPATIENT VISIT EST Diagnosis: Type 2 diabetes mellitus without complications[ICD10: E11.9] Diagnosis: Mixed hyperlipidemia[ICD10: E78.2] Diagnosis: Nicotine dependence, unspecified, uncomplicated[ICD10: F17.200] Diagnosis: Essential (primary) hypertension[ICD10: I10] Najma MANUELLINE Matilda OG [employer] [facility] CPT-4: 65675 01/19/2018 ([id number]) NURSE/OUTPATIENT VISIT EST Diagnosis: Type 1 diabetes mellitus with unspecified complications[ICD10: E10.8] Diagnosis: Essential (primary) hypertension[ICD10: I10] Diagnosis: Male erectile disorder[ICD10: F52.21] Diagnosis: Encounter for screening for malignant neoplasm of prostate[ICD10: Z12.5] Najma MANUELLINE Matilda LONG [employer] [facility] CPT-4: 78169 01/13/2018 ([id number]) OFFICE/OUTPATIENT VISIT EST Diagnosis: Type 2 diabetes mellitus without complications[ICD10: E11.9] Diagnosis: Essential (primary) hypertension[ICD10: I10] Diagnosis: Mixed hyperlipidemia[ICD10: E78.2] Najma ABBOTTDAREN GODINEZ Matilda LONG [employer] [facility] CPT-4: 82505 10/15/2017 ([id number]) NURSE/OUTPATIENT VISIT EST Diagnosis: Type 2 diabetes mellitus without complications[ICD10: E11.9] Diagnosis: Mixed hyperlipidemia[ICD10: E78.2] Diagnosis: Essential (primary) hypertension[ICD10: I10] Diagnosis: Glossitis[ICD10: K14.0] Najma MANUELLINE Matilda THAKKAR [employer] [facility] CPT-4: 79779 10/06/2017 ([id number]) OFFICE/OUTPATIENT VISIT EST Diagnosis: Type 2 diabetes mellitus without complications[ICD10: E11.9] Diagnosis: Mixed hyperlipidemia[ICD10: E78.2] Diagnosis: Essential (primary) hypertension[ICD10: I10] Najma OG DO [facility] CPT-4: 23257 03/11/2017 ([id number]) OFFICE/OUTPATIENT VISIT EST Diagnosis: Type 1 diabetes mellitus with unspecified complications[ICD10: E10.8] Diagnosis: Mixed hyperlipidemia[ICD10: E78.2] Diagnosis: Essential (primary) hypertension[ICD10: I10] Diagnosis: Other fatigue[ICD10: R53.83] Najma OG DO [facility] CPT-4: 02288 03/05/2017 ([id number]) OFFICE/OUTPATIENT VISIT EST Diagnosis: Type 2 diabetes mellitus without complications[ICD10: E11.9] Diagnosis: Mixed hyperlipidemia[ICD10: E78.2] Diagnosis: Essential (primary) hypertension[ICD10: I10] Diagnosis: Nicotine dependence, unspecified, uncomplicated[ICD10: F17.200] Najma OG DO [facility] CPT-4: 32864 07/09/2016 ([id number]) OFFICE/OUTPATIENT VISIT EST Diagnosis: Type 1 diabetes mellitus with unspecified complications[ICD10: E10.8] Diagnosis: Mixed hyperlipidemia[ICD10: E78.2] Diagnosis: Essential (primary) hypertension[ICD10: I10] Najma OG DO [facility] CPT-4: 66555 06/16/2016 ([id number]) OFFICE/OUTPATIENT VISIT EST Diagnosis: Type 2 diabetes mellitus without complications[ICD10: E11.9] Diagnosis: Mixed hyperlipidemia[ICD10: E78.2] Diagnosis: Essential (primary) hypertension[ICD10: I10] Najma OG DO [facility] CPT-4: 71078 03/10/2016 ([id number]) OFFICE/OUTPATIENT VISIT EST Diagnosis: Type 1 diabetes mellitus with unspecified complications[ICD10: E10.8] Diagnosis: Mixed hyperlipidemia[ICD10: E78.2] Diagnosis: Essential (primary) hypertension[ICD10: I10] Najma OG DO [facility] CPT-4: 74243 03/06/2016 ([id number]) OFFICE/OUTPATIENT VISIT EST Diagnosis: Bitten or stung by nonvenomous insect and other nonvenomous arthropods, subsequent encounter[ICD10: W57.XXXD] Diagnosis: Insect bite (nonvenomous), right thigh, subsequent encounter[ICD10: S70.361D] Barbara Brower NAJMA AmeenaMatilde [employer] CPT-4: 99933 11/2015 ([id number]) OFFICE/OUTPATIENT VISIT EST Diagnosis: Bitten or stung by nonvenomous insect and other nonvenomous arthropods, initial encounter[ICD10: W57.XXXA] Diagnosis: Insect bite (nonvenomous), right thigh, initial encounter[ICD10: S70.361A] Barbara Brower NAJMA Grey [employer] CPT-4: 49852 09/2015 ([id number]) OFFICE/OUTPATIENT VISIT EST Diagnosis: Mixed hyperlipidemia[ICD10: E78.2] Diagnosis: Essential (primary) hypertension[ICD10: I10] Diagnosis: Type 2 diabetes mellitus without complications[ICD10: E11.9] Diagnosis: Encounter for immunization[ICD10: Z23] Diagnosis: Encounter for screening for malignant neoplasm of colon[ICD10: Z12.11] Diagnosis: Abnormal weight gain[ICD10: R63.5] Barbara Brower ANUM GODINEZ [employer] CPT-4: 41304 09/06/2015 ([id number]) OFFICE/OUTPATIENT VISIT EST Diagnosis: Type 2 diabetes mellitus without complications[ICD10: E11.9] Diagnosis: Mixed hyperlipidemia[ICD10: E78.2] Diagnosis: Essential (primary) hypertension[ICD10: I10] Diagnosis: Encounter for screening for malignant neoplasm of prostate[ICD10: Z12.5] Diagnosis: Other fatigue[ICD10: R53.83] Najma MCARTHUR FanchimpMatilde [facility] CPT-4: 30096 08/31/2015 OFFICE/OUTPATIENT VISIT EST Diagnosis: Diarrhea, unspecified[ICD10: R19.7] Henrietta MCCOY [employer] CPT-4: 22010 06/29/2015 OFFICE/OUTPATIENT VISIT EST Diagnosis: PNEUMOCOCCAL VACCINE[ICD10: Z23] Diagnosis: FLU VACCINE[ICD10: Z23] Diagnosis: Essential (primary) hypertension[ICD10: I10] Diagnosis: Mixed hyperlipidemia[ICD10: E78.2] Diagnosis: Type 1 diabetes mellitus with unspecified complications[ICD10: E10.8] Diagnosis: Actinic keratosis[ICD10: L57.0] Najma OG [facility] CPT-4: 78306 01/17/2015 ([id number]) OFFICE/OUTPATIENT VISIT EST Diagnosis: Type 2 diabetes mellitus without complications[ICD10: E11.9] Diagnosis: Impaired fasting glucose[ICD10: R73.01] Diagnosis: Mixed hyperlipidemia[ICD10: E78.2] Diagnosis: Essential (primary) hypertension[ICD10: I10] Najma OG [employer] [facility] CPT-4: 95274 01/12/2015 ([id number]) OFFICE/OUTPATIENT VISIT EST Diagnosis: - I - HYPERLIPIDEMIA NEC/NOS[ICD9: 272.4] Diagnosis: HYPERTENSION[ICD9: 401.9] Diagnosis: DM W/O COMPLICATION TYPE II[ICD9: 250.00] Diagnosis: ACTINIC KERATOSIS[ICD9: 702.0] Najma OG [employer] [facility] CPT-4: 39514 09/19/2014 ([id number]) OFFICE/OUTPATIENT VISIT EST Diagnosis: HYPERLIPIDEMIA NEC/NOS[ICD9: 272.4] Diagnosis: HYPERTENSION[ICD9: 401.9] Diagnosis: IMPAIRED FASTING GLUCOSE[ICD9: 790.21] Diagnosis: MALAISE AND FATIGUE[ICD9: 780.79] Najma OG [employer] [facility] CPT-4: 73754 08/15/2014 ([id number]) OFFICE/OUTPATIENT VISIT EST Diagnosis: HYPERLIPIDEMIA NEC/NOS[ICD9: 272.4] Diagnosis: HYPERTENSION[ICD9: 401.9] Diagnosis: IMPAIRED FASTING GLUCOSE[ICD9: 790.21] Najma Heverlane CHAPMAN Matilda OG [employer] [facility] CPT-4: 74709 12/14/2013 ([id number]) OFFICE/OUTPATIENT VISIT EST Diagnosis: Post herpetic neuralgia[ICD9: 053.19] Najma BROOKS Matilda OG [employer] [facility] CPT-4: 53465 10/17/2013 OFFICE/OUTPATIENT VISIT EST Diagnosis: Shingles[ICD9: 053.9] Diagnosis: Post herpetic neuralgia[ICD9: 053.19] Jeanie ScottRandshawneeamita [facility] CPT-[facility]: 69835 09/23/2013 ([id number]) OFFICE/OUTPATIENT VISIT EST Diagnosis: HYPERTENSION[ICD9: 401.9] Diagnosis: HYPERLIPIDEMIA NEC/NOS[ICD9: 272.4] Diagnosis: IMPAIRED FASTING GLUCOSE[ICD9: 790.21] [facility]: 83652 06/20/2013 ([id number]) OFFICE/OUTPATIENT VISIT EST Diagnosis: HYPERLIPIDEMIA NEC/NOS[ICD9: 272.4] Diagnosis: MALAISE AND FATIGUE[ICD9: 780.79] Diagnosis: ROUTINE MEDICAL EXAM[ICD9: V70.0] Diagnosis: HYPERTENSION[ICD9: 401.9] Diagnosis: IMPAIRED FASTING GLUCOSE[ICD9: 790.21] [facility]: 89968 06/08/2013 ([id number]) OFFICE/OUTPATIENT VISIT EST Diagnosis: HYPERLIPIDEMIA NEC/NOS[ICD9: 272.4] Diagnosis: HYPERTENSION[ICD9: 401.9] Diagnosis: IMPAIRED FASTING GLUCOSE[ICD9: 790.21] Diagnosis: DIARRHEA[ICD9: 787.91] Najma MANUELLINE Matilda Stallings [facility] CPT-4: 62094 11/25/2012 ([id number]) OFFICE/OUTPATIENT VISIT EST Diagnosis: HYPERLIPIDEMIA NEC/NOS[ICD9: 272.4] Diagnosis: HYPERTENSION[ICD9: 401.9] Diagnosis: IMPAIRED FASTING GLUCOSE[ICD9: 790.21] Diagnosis: MALAISE AND FATIGUE[ICD9: 780.79] Najma Hevervicentebijan FILI Gregory LONG [employer] [facility] CPT-4: 56905 11/11/2012 OFFICE/OUTPATIENT VISIT EST Diagnosis: Fungal dermatitis[ICD9: 111.9] Diagnosis: Dry skin dermatitis[ICD9: 692.89] Henrietta Jenkins AmeenaMatilde MERCEDES [employer] [facility] CPT-4: 63577 08/27/2012 ([id number]) OFFICE/OUTPATIENT VISIT EST Diagnosis: HYPERTENSION[ICD9: 401.9] Diagnosis: HYPERLIPIDEMIA NEC/NOS[ICD9: 272.4] Najma SAMSONNDER [facility] CPT-4: 79415 05/11/2012 ([id number]) OFFICE/OUTPATIENT VISIT EST Diagnosis: HYPERLIPIDEMIA NEC/NOS[ICD9: 272.4] Diagnosis: HYPERTENSION[ICD9: 401.9] Diagnosis: ROUTINE MEDICAL EXAM[ICD9: V70.0] Najma SAMSONNDER [facility] CPT-4: 40150 05/04/2012 ([id number]) OFFICE/OUTPATIENT VISIT EST Diagnosis: HYPERTENSION[ICD9: 401.9] Diagnosis: HYPERLIPIDEMIA NEC/NOS[ICD9: 272.4] Diagnosis: IMPAIRED FASTING GLUCOSE[ICD9: 790.21] Najma SAMSONNDBIJAN WADE [facility] CPT-4: 11818 12/11/2011 ([id number]) OFFICE/OUTPATIENT VISIT EST Diagnosis: HYPERLIPIDEMIA NEC/NOS[ICD9: 272.4] Diagnosis: HYPERTENSION[ICD9: 401.9] Diagnosis: IMPAIRED FASTING GLUCOSE[ICD9: 790.21] Najma SAMSONNDER [facility] CPT-4: 46342 10/29/2011 ([id number]) OFFICE/OUTPATIENT VISIT EST Diagnosis: HYPERTENSION[ICD9: 401.9] Najma SAMSON NDER [facility] CPT-4: 04435 08/14/2011 ([id number]) OFFICE/OUTPATIENT VISIT EST Diagnosis: HYPERTENSION[ICD9: 401.9] Diagnosis: IMPAIRED FASTING GLUCOSE[ICD9: 790.21] Najma SAMSONNDER [facility] CPT-4: 29222 07/29/2011 ([id number]) OFFICE/OUTPATIENT VISIT EST Diagnosis: HYPERTENSION[ICD9: 401.9] Najma SAMSON NDER [facility] CPT-4: 56236 07/23/2011 ([id number]) OFFICE/OUTPATIENT VISIT EST Diagnosis: HYPERTENSION[ICD9: 401.9] Najma SAMSON NDER [facility] CPT-4: 58497 06/24/2011 OFFICE/OUTPATIENT VISIT EST Diagnosis: HYPERTENSION[ICD9: 401.9] Najma PAYAN DO [employer] CPT-4: 90581 05/20/2011 OFFICE/OUTPATIENT VISIT EST Diagnosis: HYPERTENSION[ICD9: 401.9] Najma PAYAN DO [facility] [facility] CPT-4: 37782 04/15/2011 OFFICE/OUTPATIENT VISIT EST Diagnosis: HYPERLIPIDEMIA NEC/NOS[ICD9: 272.4] Diagnosis: IMPAIRED FASTING GLUCOSE[ICD9: 790.21] Najma OG DO [facility] [facility] CPT-4: 81553 03/18/2011 ([id number]) OFFICE/OUTPATIENT VISIT EST Najma OG DO [facility] CPT-4: 49554 07/30/2010 ([id number]) PREV VISIT, EST, AGE 40-64 Najma OG DO [facility] CPT-4: 43904 04/24/2010 Plan of Care Planned Activity Notes [...] : I10 06/02/2019 [facility]ment[facility] [phone] [facility] [facility] 06/02/2019 Appointment: [facility] [phone] [facility] [facility] 05/24/2019 Visit Diagnosis Plan: Essential [...] : E78.2 01/31/2019 Appointment: Najma Og WPtel: [address] [place] [address] US FOLLOW UP 01/31/2019 Appointment: Najma Og WPtel: [address] [place] [address] US LAB 01/26/2019 Appointment: Najma Og WPtel: [address] [place] [address] US LAB 09/30/2018 Visit Diagnosis Plan: Essential [...] : N19 08/19/2018 Appointment: Najma Og WPtel: [address] [place] [address] US FOLLOW UP 08/19/2018 Appointment: Najma Og WPtel: [address] [place], [place] [phone] [place] LAB 08/16/2018 Visit Diagnosis Plan: Type [...] : I10 05/10/2018 Appointment: Najma Og WPtel: [address] [place], [place] [phone] US FOLLOW UP 05/10/2018 Patient Education: Low Back Pain Exercises: Illustration Completed 05/10/2018 Patient Education: Low Back Pain Exercises Completed 05/10/2018 Appointment: Najma Og WPtel: [address] [place], [place] [phone] [place] LAB 05/05/2018 Visit Diagnosis Plan: Type [...] : E78.2 01/19/2018 Appointment: Najma Og WPtel: [address] [place], [place] [phone] US FOLLOW UP 01/19/2018 Patient Education: Patient Medication Summary Completed 01/19/2018 Appointment: Najma Og WPtel: [address] [place], [place] [phone] [place] LAB 01/13/2018 Patient Education: Patient Medication [...] : E78.2 10/15/2017 Appointment: Najma Og WPtel: [address] [place], [place] [phone] [place] FOLLOW UP 10/15/2017 Patient Education: Patient Medication Summary Completed 10/15/2017 Appointment: Najma Og WPtel: [address] [place], [place] [phone] [place] LAB 10/06/2017 Patient Education: Patient Medication Summary Completed 10/06/2017 Visit Diagnosis Plan: Actinic keratosis Discussion: Cr yotherapy as above ICD-9 : 702.0 ICD-10 : L57.0 04/23/2017 Appointment: Najma Og WPtel: [address] [place], [place] [phone] OFF[facility] 04/23/2017 Patient Education: Patient Medication [...] : E11.9 03/11/2017 Appointment: Najma Og WPtel: [address] [place], [place] [phone] [place] FOLLOW UP 03/11/2017 Patient Education: Patient Medication Summary Completed 03/11/2017 Appointment: Najma Og WPtel: [address] [place], [place] [phone] [place] LAB 03/05/2017 Patient Education: Patient Medication [...] : E78.2 07/09/2016 Appointment: Najma Og WPtel: [address] [place] [address] [place] 07/08 lm ~sl 07/09 confirmed~sl FOLLOW UP 08/2016 Patient Education: Patient Medication Summary Completed 07/09/2016 Appointment: Najma Og WPtel: [address] [place] [address] US LAB 06/16/2016 Patient Education: Patient Medication Summary Completed 06/16/2016 Visit Plan: Lab discussed Accuchecks maribel ly Lifestyle change for 3mos then check CMP, HbA1C in 3mos Has had flu and pneumonia shot 03/10/2016 Appointment: Najma Og WPtel: [address] [place], [place] [phone] [place] 03/06 confirmed `sl FOLLOW UP 03/10/2016 Patient Education: Patient Medication Summary Completed 03/10/2016 Appointment: Najma Og WPtel: [address] [place], [place] [phone] [place] LAB 03/06/2016 Patient Education: Patient Medication Summary Completed 03/06/2016 [facility] [facility] Ref[facility] Completed 10/22/2015 Visit Plan: Tick bite area looks much be tter Continue current rxs and close monitoring Follow up if any new symptoms or worsening appearance 09/12/2015 Appointment: Barbara Brower [address] [place] [address] 09/10 confirmed~sl FOLLOW UP 09/12/2015 Patient Education: Patient Medication Summary Completed 09/12/2015 Visit Plan: Cover as above 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 topical steroids to calm down the inflammation(suspect most of redness is due to histamine response vs infection) Monitor closely Follow up in 2 days to recheck 09/10/2015 Appointment: Barbara Brower [address] [place], [place] [phone] ACUTE [facility]LL[facility] 09/10/2015 Patient Education: Patient Medication [...] consider shingles vaccine 09/06/2015 Appointment: Barbara Brower [address] [place], [place] [phone] FOLLOW UP 09/06/2015 Patient Education: Patient Medication Summary Completed 09/06/2015 Care Plan: Referral Order SNOMED-CT : [id number] Pending 09/06/2015 Appointment: Najma Og WPtel: [phone] [id number] LAB 08/31/2015 Patient Education: Patient Medication Summary Completed 08/31/2015 Visit Plan: Offered aggressive (KUB, IV fluids, Labs) vs. conservative (oral hydration, treat symptoms, watchful waiting). Elects for conservative + labs. CBC & CMP at [facility] Discussed needed oral hydration (preferably with sports drinks), 24 hour clear liquid followed by BRAT diet and advance as tolerated Discussed s/s of worsening, go to UC/ER. 06/29/2015 Appointment: Henrietta Lubin WPtel: [phone] [id number] ACUTE ILLNESS 06/29/2015 Patient Education: Patient Medication Summary Completed 06/29/2015 Visit Plan: Lab discussed Will keep meds the same Discussed diet/exercise at length Cryotherapy as above to AKs of arms Flu and Prevnar 13 given Trial of revatio per patient request for ED--warned of no nitrates Recheck 4mos 01/17/2015 Appointment: Najma Og WPtel: [address] [place], [place] [phone] 01/16 confirmed~sl FOLLOW UP 01/17/2015 Patient Education: Patient Medication Summary Completed 01/17/2015 Appointment: Najma Og WPtel: [address] [place], [place] [id number] US LAB 01/12/2015 Patient Education: Patient Medication Summary Completed 01/12/2015 Visit Plan: Lab discussed Start accuchec ks daily Cryotherapy as above 09/19/2014 Appointment: Najma Og WPtel: [address] [place] [address] 09/18 confirmed -mf FOLLOW UP 09/19/2014 Patient Education: Patient Medication Summary Completed 09/19/2014 Appointment: Najma Og WPtel: [address] [place] [address] LAB 08/15/2014 Patient Education: Patient Medication Summary Completed 08/15/2014 Appointment: Najma Og WPtel: [address] [place] [address] ACUTE ILLNESS 12/14/2013 Patient Education: Patient Medication Summary Completed 12/14/2013 Visit Plan: Patient using tylenol prn pa in Discussed possible shingles shot for booster in 9-12mos 10/17/2013 Appointment: Najma Og WPtel: [address] [place], [place] [phone] FOLLOW UP 10/17/2013 Patient Education: Patient Medication Summary Completed 10/17/2013 Appointment: Jeanie Briceño WPtel: [address] [place] [address] ACUTE ILLNESS 09/23/2013 Patient Education: Patient Medication Summary Completed 09/23/2013 Appointment: Najma Og WPtel: [address] [place] [address] BP CHECK 07/22/2013 Patient Education: Patient Medication Summary Completed 07/22/2013 Visit Plan: Lab discussed Discussed swit arun amlodopine to beta slim to see if helps with tremor BP check in 1mo 06/20/2013 Appointment: Najma Og WPtel: [address] [place], [place] [phone] 06/17 no answer FOLLOW UP 06/20/2013 Patient Education: Patient Medication Summary Completed 06/20/2013 Appointment: Najma Og WPtel: [address] [place], [place] [phone] US LAB 06/08/2013 Patient Education: Patient Medication Summary Completed 06/08/2013 Visit Plan: BRAT diet and yogurt and gat orade Lab discussed Continue current meds Spot checks on BS 11/25/2012 Appointment: Najma Og WPtel: [address] [place], [place] [phone] 11/24 vm FOLLOW UP 11/25/2012 Patient Education: Patient Medication Summary Completed 11/25/2012 Appointment: Najma Og WPtel: [address] [place], [place] [phone] LAB 11/11/2012 Patient Education: Patient Medication Summary Completed 11/11/2012 Appointment: Henrietta Lubin WPtel: [address] [place], [place] [id number] WORK IN 08/27/2012 Patient Education: Patient Medication Summary Completed 08/27/2012 Visit Plan: Pt going to get new home BP moniter Continue crestor and restart fish oil and will check fasting lab in 6mos Lab results discussed 05/11/2012 Appointment: Najma Og WPtel: [address] [place], [place] [phone] 05/10 vm FOLLOW UP 05/11/2012 Patient Education: Patient Medication Summary Completed 05/11/2012 Appointment: Najma Og WPtel: [address] [place], [place] [phone] US LAB 05/04/2012 Patient Education: Patient Medication Summary Completed 05/04/2012 Visit Plan: 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 and forehead 03/02/2012 Appointment: Najma Og WPtel: [address] [place], [place] [phone] 03/01 OFFICE SURGERY 03/02/2012 Patient Education: Patient Medication Summary Completed 03/02/2012 Visit Plan: Labs discussed--recheck lab end of Feb/mar Continue current meds and continue to moniter BS daily and BP 1-2 times a week Plan on cryotherapy this fall so can wear longsleeves after procedure See urology 12/11/2011 Appointment: Najma Og WPtel: [address] [place] [address] FOLLOW UP 12/11/2011 Patient Education: Patient Medication Summary Completed 12/11/2011 Appointment: Najma Og WPtel: [address] [place], [place] [phone] LAB 10/29/2011 Patient Education: Patient Medication Summary Completed 10/29/2011 Appointment: Najma Og WPtel: [address] [place] [address] BP CHECK 08/14/2011 Patient Education: Patient Medication Summary Completed 08/14/2011 Appointment: Najma Og WPtel: [address] [place] [id number] ACUTE ILLNESS 07/29/2011 Patient Education: Patient Medication Summary Completed 07/29/2011 Appointment: Najma Og WPtel: [address] [place] [address] BP CHECK 07/23/2011 Patient Education: Patient Medication Summary Completed 07/23/2011 Appointment: Najma Og WPtel: [address] [place], [place] [id number] BP CHECK 06/24/2011 Patient Education: Patient Medication Summary Completed 06/24/2011 Appointment: Najma Og WPtel: [address] [place], [place] [phone] [place] BP CHECK 05/20/2011 Patient Education: Patient Medication Summary Completed 05/20/2011 Appointment: Najma Og WPtel: [address] [place], [place] [phone] [place] BP CHECK 04/29/2011 Patient Education: Patient Medication Summary Completed 04/29/2011 Appointment: Najma Og WPtel: [address] [place], [place] [phone] [place] BP CHECK 04/15/2011 Patient Education: Patient Medication Summary Completed 04/15/2011 Visit Plan: Continue current meds Add fi sh oil 1gm daily Glucometer given to use for accuchecks prn 03/18/2011 Appointment: Najma Og WPtel: [address] [place], [place] [phone] [place] FOLLOW UP 03/18/2011 Patient Education: Patient Medication Summary Completed 03/18/2011 Appointment: Najma Og WPtel: [address] [place], [place] [phone] US LAB 03/14/2011 Patient Education: Patient Medication Summary Completed 03/14/2011 Appointment: Najma Og WPtel: [address] [place], [place] [phone] [place] LAB 11/11/2010 Appointment: Najma Og WPtel: [address] [place], [place] [id number] [place] UA 11/11/2010 Patient Education: Patient Medication Summary Completed 11/11/2010 Appointment: Najma Og WPtel: [address] [place], [place] [phone] [place] LAB 10/29/2010 Patient Education: Patient Medication Summary Completed 10/29/2010 Appointment: Najma Og WPtel: [address] [place], [place] [phone] [place] FOLLOW UP 07/30/2010 Patient Education: Patient Medication Summary Completed 07/30/2010 Appointment: Najma Og WPtel: [address] [place] [phone] [place] LAB 07/23/2010 Patient Education: Patient Medication Summary Completed 07/23/2010 Appointment: Najma Og WPtel: [address] [place] [phone] [place] LAB 04/26/2010 Patient Education: Patient Medication Summary Completed 04/26/2010 Visit Plan: Add PSA to lab Restart Crest or at 10mg daily Trial of Wellbutrin to aid in smoking cessation Check Lipids and LFTs in 3mos 04/24/2010 Appointment: Najma Og WPtel: [address] [place], [place] [phone] FOLLOW UP 04/24/2010 Patient Education: Patient Medication Summary Completed 04/24/2010 Appointment: Najma Og WPtel: [address] [place], [place] [phone] [place] LAB 04/19/2010 Patient Education: Patient Medication Summary Completed 04/19/2010 Referral: Donavon Keller WPtel: [id number] [place] Referral Completed Instructions Comment . Lab [...]
--- OUTSIDE RECORDS SUMMARY | 2019-10-14 22:39 | XMS REPORT | CCD ---
Author Author Inocente Og D.O. Organization [facility] Address [address] [place] [address] Phone Care Team Providers Care Blend Technician Name Role Phone Najma Og D.O. PP Unavailable CCM Unavailable Summary Purpose Interface Exchange Insurance Providers Payer name Policy type / Coverage type Covered libertarian ID Effective Begin Date Effective End Date [employer] MEDICARE Medicare Part B [id number] Unknown [facility] Medicare Part B [id number] Un known Family history Father Diagnosis Age At Onset Diabetes mellitus Type 2 Unknown Myocardial infarction Unknown Brother Diagnosis Age At Onset Diabetes mellitus Type 2 Unknown Mother Diagnosis Age At Onset Osteoarthritis Unknown Cerebrovascular disease Unknown Social History Social History Element Codes Description Effective Dates Tobacco history SNOMED CT: 466605973 Never smoker 12/21/2014 Marital status Unknown 07/30/2010 [...] Instructions fenofibrate micronized 134 mg capsule RxNorm: 667395 TA KE 1 CAPSULE BY MOUTH ONCE DAILY FOR TRIGLYCERIDES 07/08/2019 10/05/2019 Active amlodipine 5 mg tablet RxNorm: 572556 TAKE 1 TABLET BY MOUTH ON CE DAILY 06/16/2019 09/13/2019 Active metformin ER 500 mg tablet,extended release 24 hr RxNorm: 86 0975 TAKE 1 TABLET BY MOUTH ONCE DAILY 06/10/2019 09/07/2019 Active propranolol ER 80 mg capsule,24 hr,extended release RxNorm: 842927 TAKE 1 CAPSULE BY MOUTH ONCE DAILY 06/10/2019 09/07/2019 Active Vitamin D3 25 mcg (1,000 unit) capsule RxNorm: 757590 1 Capsule(s) Oral two times a day 06/02/2019 No Stop Date Active turmeric 400 mg capsule RxNorm: 1 Capsule(s) Oral QD 06/02/2019 No Stop Date Active Fish Oil 120 mg-180 mg-500 mg capsule RxNorm: 2 Capsule(s) Ora l QD 06/02/2019 No Stop Date Active 16.2 mg-0.1037 mg-0.0194 mg tablet RxNorm: 2161826 1 Tablet(s) Oral four times a day as needed abdominal pain/diarrhea 06/02/2019 No Stop D ate Active fenofibrate micronized 134 mg capsule RxNorm: 113920 1 Capsule(s) Oral QD for triglycerides 04/14/2019 07/07/2019 Inactive amlodipine 5 mg tablet RxNorm: 196238 TAKE 1 TABLET BY MOUTH ON CE DAILY 03/22/2019 06/15/2019 Inactive metformin ER 500 mg tablet,extended release 24 hr RxNorm: 86 0975 TAKE 1 TABLET BY MOUTH ONCE DAILY 03/15/2019 06/09/2019 Inactive propranolol ER 80 mg capsule,24 hr,extended release RxNorm: 503059 TAKE 1 CAPSULE BY MOUTH ONCE DAILY 03/15/2019 06/09/2019 Inactive amlodipine 5 mg tablet RxNorm: 470652 1 Tablet(s) PO QD 12/27/2018 Inactive fenofibrate micronized 134 mg capsule RxNorm: 067717 TA KE 1 CAPSULE BY MOUTH ONCE DAILY FOR TRIGLYCERIDES 10/11/2018 04/13/2019 Inactive amlodipine 5 mg tablet RxNorm: 698107 1 Tablet(s) PO QD 09/30/2018 Inactive metformin ER 500 mg tablet,extended release 24 hr RxNorm: 86 0975 TAKE 1 TABLET BY MOUTH ONCE DAILY 09/21/2018 03/14/2019 Inactive propranolol ER 80 mg capsule,24 hr,extended release RxNorm: 418714 TAKE 1 CAPSULE BY MOUTH ONCE DAILY 09/21/2018 03/14/2019 Inactive amlodipine 5 mg tablet RxNorm: 567328 1 Tablet(s) PO QD 08/25/2018 Inactive amlodipine 5 mg tablet RxNorm: 478635 1 Tablet(s) PO QD 08/25/2018 Inactive lisinopril 40 mg tablet RxNorm: 648305 TAKE 1 TABLET BY MOUTH O NCE DAILY 07/21/2018 08/24/2018 Inactive fenofibrate micronized 134 mg capsule RxNorm: 566249 TA KE 1 CAPSULE BY MOUTH ONCE DAILY FOR TRIGLYCERIDES 07/12/2018 10/10/2018 Inactive propranolol ER 80 mg capsule,24 hr,extended release RxNorm: 198688 TAKE 1 CAPSULE BY MOUTH ONCE DAILY 06/21/2018 09/20/2018 Inactive lisinopril 40 mg tablet RxNorm: 569341 TAKE 1 TABLET BY MOUTH O NCE DAILY 04/26/2018 07/20/2018 Inactive metformin ER 500 mg tablet,extended release 24 hr RxNorm: 360857 1 Tablet(s) QD 03/31/2018 09/20/2018 Inactive lisinopril 40 mg tablet RxNorm: 170877 TAKE 1 TABLET BY MOUTH O NCE DAILY 01/28/2018 04/25/2018 Inactive Vitamin D3 5,000 unit tablet RxNorm: 081225 1 Tablet(s) PO QD 01/1908/18/2018 Inactive fenofibrate micronized 134 mg capsule RxNorm: 779784 1 Capsule(s) PO QD for triglycerides 01/19/2018 07/11/2018 Inactive metformin ER 500 mg tablet,extended release 24 hr RxNorm: 089265 1 Tablet(s) QD 12/31/2017 03/30/2018 Inactive metformin ER 500 mg tablet,extended release 24 hr RxNorm: 215583 Tablet(s) 12/30/2017 12/30/2017 Inactive propranolol ER 80 mg capsule,24 hr,extended release RxNorm: 742145 1 Capsule(s) PO QD 12/17/2017 06/14/2018 Inactive metformin ER 500 mg tablet,extended release 24 hr RxNorm: 86 0975 1 Tablet(s) PO QD DUE FOR LABS AND APPT 12/02/2017 12/30/2017 Inactive Crestor 10 mg tablet RxNorm: 989158 TAKE ONE TABLET BY MOUTH ON CE DAILY 11/01/2017 01/18/2018 Inactive lisinopril 40 mg tablet RxNorm: 229575 TAKE ONE TABLET BY MOUTH ONCE DAILY [...] ER 80 mg capsule,24 hr,extended release RxNorm: 726780 1 Capsule(s) PO QD DUE FOR APPT 09/08/2017 12/17/2017 Inactive Crestor 10 mg tablet RxNorm: 844010 1 Tablet(s) PO QD T CHELSI ONE TABLET BY MOUTH DAILY 03/11/2017 09/06/2017 Inactive propranolol ER 80 mg capsule,24 hr,extended release RxNorm: 174749 1 Capsule(s) PO QD TAKE ONE CAPSULE BY MOUTH DAILY - REPLACES AMLODOPINE 03/11/2017 09/08/2017 Inactive metformin ER 500 mg tablet,extended release 24 hr RxNorm: 86 0975 1 Tablet(s) PO QD 03/11/2017 09/08/2017 Inactive lisinopril 40 mg tablet RxNorm: 741454 1 Tablet(s) PO QD 03/11/2017 0 09/06/2017 Inactive lisinopril 40 mg tablet RxNorm: 266003 1 Tablet(s) PO QD 02/16/2017 1 05/11/2016 Inactive metformin ER 500 mg tablet,extended release 24 hr RxNorm: 86 0975 1 Tablet(s) PO QD Due for labs and follow up before further refills 02/16/2017 017 Inactive propranolol ER 80 mg capsule,24 hr,extended release RxNorm: 871562 Capsule(s) TAKE ONE CAPSULE BY MOUTH DAILY - REPLACES AMLODOPINE 11/19/20162016 Inactive lisinopril 40 mg tablet RxNorm: 137312 1 Tablet(s) PO QD 11/17/2016 1 04/18/2016 Inactive metformin ER 500 mg tablet,extended release 24 hr RxNorm: 86 0975 1 Tablet(s) PO QD 11/17/2016 02/16/2017 Inactive lisinopril 40 mg tablet RxNorm: 821327 1 Tablet(s) PO Q D TAKE ONE TABLET BY MOUTH DAILY 08/19/2016 11/17/2016 Inactive metformin ER 500 mg tablet,extended release 24 hr RxNorm: 86 0975 Tablet(s) TAKE ONE TABLET BY MOUTH DAILY 08/19/2016 11/16/2016 Inactive propranolol ER 80 mg capsule,24 hr,extended release RxNorm: 746156 Capsule(s) TAKE ONE CAPSULE BY MOUTH DAILY - REPLACES AMLODOPINE 08/19/20162016 Inactive Crestor 10 mg tablet RxNorm: 442533 TAKE ONE TABLET BY MOUTH DAILY 06/16/2016 03/10/2017 Inactive lisinopril 40 mg tablet RxNorm: 662020 1 Tablet(s) PO Q D TAKE ONE TABLET BY MOUTH DAILY 05/23/2016 08/18/2016 Inactive metformin ER 500 mg tablet,extended release 24 hr RxNorm: 86 0975 TAKE ONE TABLET BY MOUTH DAILY 05/23/2016 08/19/2016 Inactive propranolol ER 80 mg capsule,24 hr,extended release RxNorm: 120760 TAKE ONE CAPSULE BY MOUTH DAILY - REPLACES AMLODOPINE 05/23/2016 08/19/2016 [place] [facility] Crestor 10 mg tablet RxNorm: 744103 TAKE ONE TABLET BY MOUTH DAILY 03/31/2016 06/15/2016 Inactive metformin ER 500 mg tablet,extended release 24 hr RxNorm: 86 0975 TAKE ONE TABLET BY MOUTH DAILY 02/19/2016 05/22/2016 Inactive propranolol ER 80 mg capsule,24 hr,extended release RxNorm: 259347 TAKE ONE CAPSULE BY MOUTH DAILY - REPLACES AMLODOPINE 11/23/2015 05/20/2016 [place] [facility] metformin ER 500 mg tablet,extended release 24 hr RxNorm: 86 0975 TAKE ONE TABLET BY MOUTH DAILY 11/08/2015 02/05/2016 Inactive Bactroban Nasal 2 % ointment RxNorm: 069059 Apply topic ally to affected area twice daily 09/10/2015 03/09/2016 Inactive Vibramycin 100 mg capsule RxNorm: 581163 1 Capsule(s) PO BID 201509/23/2015 Inactive lisinopril 40 mg tablet RxNorm: 611265 1 Tablet(s) PO Q D TAKE ONE TABLET BY MOUTH DAILY 08/27/2015 02/22/2016 Inactive metformin ER 500 mg tablet,extended release 24 hr RxNorm: 86 0975 TAKE ONE TABLET BY MOUTH DAILY 08/06/2015 11/03/2015 Inactive Levsin/SL 0.125 mg sublingual tablet RxNorm: 8005977 1 T ablet(s) SL Q4H as needed for stomach cramps 06/29/2015 07/03/2015 Inactive lisinopril 40 mg tablet RxNorm: 109690 Tablet(s) TAKE ONE TABLE T BY MOUTH DAILY 06/07/2015 08/26/2015 Inactive propranolol ER 80 mg capsule,24 hr,extended release RxNorm: 870654 TAKE ONE CAPSULE BY MOUTH DAILY - REPLACES AMLODOPINE 05/30/2015 11/22/2015 [place] [facility] metformin ER 500 mg tablet,extended release 24 hr RxNorm: 86 0975 1 Tablet(s) PO QD 05/10/2015 08/05/2015 Inactive Crestor 10 mg tablet RxNorm: 070225 TAKE ONE TABLET BY MOUTH DAILY 04/18/2015 10/14/2015 Inactive metformin ER 500 mg tablet,extended release 24 hr RxNorm: 86 0975 TAKE ONE TABLET BY MOUTH DAILY 02/07/2015 05/10/2015 Inactive sildenafil 20 mg tablet RxNorm: 120774 1 Tablet(s) PO QD 01/17/2015 1 04/17/2014 Inactive propranolol ER 80 mg capsule,24 hr,extended release RxNorm: 424060 1 Capsule(s) PO QD replaces amlodopine 11/28/2014 05/26/2015 Inactive [[facility] -- BIN:[id number], PCN: [id number], Group: [id number], ID# [id number], Process claim through [employer], for questions: . THIS IS NOT INSURANCE.] lisinopril 40 mg tablet RxNorm: 817028 TAKE ONE TABLET BY MOUTH DAILY 11/16/2014 06/07/2015 Inactive lisinopril 40 mg tablet RxNorm: 711727 1 Tablet(s) PO QD 08/21/2014 0 11/15/2014 Inactive [AttnRPh: Saving apply/adjudicate RxGRP: [id number] RxBIN:[id number] RxPCN: ID#:[id number]] lisinopril 40 mg tablet RxNorm: 858265 1 Tablet(s) PO Q D NEEDS SEEN FOR APPOINTMENT 07/14/2014 08/21/2014 Inactive [AttnRPh: Saving apply/adjudicate RxGRP:SG20 RxBIN:[id number] RxPCN: ID#:[id number]] Crestor 10 mg tablet RxNorm: 223968 TAKE ONE TABLET BY MOUTH EV EILEEN07/06/2014 01/01/2015 Inactive metformin ER 500 mg tablet,extended release 24 hr RxNorm: 86 0975 1 Tablet(s) QD TAKE ONE TABLET BY MOUTH ONCE A DAY 06/09/2014 12/05/2014 Inactive propranolol ER 80 mg capsule,24 hr,extended release RxNorm: 703915 1 Capsule(s) PO QD replaces amlodopine 06/05/2014 11/28/2014 Inactive [[facility] -- BIN:[id number], PCN: [id number], Group: [id number], ID# [id number], Process claim through [employer], for questions: . THIS IS NOT INSURANCE.] propranolol ER 80 mg capsule,24 hr,extended release RxNorm: 727565 1 Capsule(s) PO QD replaces amlodopine 03/07/2014 06/05/2014 Inactive [[facility] -- BIN:[id number], PCN: [id number], Group: [id number], ID# [id number], Process claim through [employer], for questions: . THIS IS NOT INSURANCE.] metformin ER 500 mg tablet,extended release 24 hr RxNorm: 86 0975 TAKE ONE TABLET BY MOUTH ONCE A DAY 12/15/2013 06/09/2014 Inactive propranolol ER 80 mg capsule,24 hr,extended release RxNorm: 093098 1 Capsule(s) PO QD replaces amlodopine 12/09/2013 03/07/2014 Inactive [[facility] -- BIN:173305, PCN: [id number], Group: [id number], ID# [id number], Process claim through [employer], for questions: . THIS IS NOT INSURANCE.] acyclovir 800 mg tablet RxNorm: 619931 1 Tablet(s) PO QID 09/23/2013 09/29/2013 Inactive gabapentin 300 mg capsule RxNorm: 787030 1 Capsule(s) PO BID 201310/07/2013 Inactive metformin ER 500 mg tablet,extended release 24 hr RxNorm: 86 0975 1 Tablet(s) PO QD 09/19/2013 12/14/2013 Inactive propranolol ER 80 mg capsule,24 hr,extended release RxNorm: 465108 1 Capsule(s) PO QD replaces amlodopine 09/15/2013 12/09/2013 Inactive metformin ER 500 mg 24 hr tablet,extended release RxNorm: 86 0975 1 Tablet(s) PO QD 09/15/2013 09/18/2013 Inactive lisinopril 40 mg tablet RxNorm: 805990 1 Tablet(s) PO QD 07/19/2013 0 07/14/2014 Inactive Crestor 10 mg tablet RxNorm: 492786 Tablet(s) PO TAKE O NE TABLET BY MOUTH EVERY DAY 07/12/2013 07/05/2014 Inactive propranolol ER 80 mg capsule,24 hr,extended release RxNorm: 266682 1 Capsule(s) PO QD replaces amlodopine 06/20/2013 09/15/2013 Inactive triamcinolone acetonide 0.1 % topical ointment RxNorm: 20294 36 Application TOP BID 06/20/2013 06/26/2013 Inactive Crestor 10 mg tablet RxNorm: 875142 1 Tablet(s) PO QD 04/18/201310/2013 Inactive Viagra 100 mg tablet RxNorm: 907403 1 Tablet(s) PO as directed 01/0508/18/2018 Inactive TAKE ONE TABLET BY MOUTH DIRECTED Crestor 10 mg tablet RxNorm: 257406 1 Tablet(s) PO QD 01/17/201304/06 Inactive metformin ER 500 mg tablet,extended release 24 hr RxNorm: 86 0975 1 Tablet(s) PO QD TAKE ONE TABLET BY MOUTH EVERY DAY 12/23/2012 09/15/2013 Inactive triamcinolone acetonide 0.1 % topical ointment RxNorm: 97761 36 Application TOP BID 08/27/2012 09/02/2012 Inactive ketoconazole 2 % topical cream RxNorm: 794057 1 Application TOP QAM 08/27/2012 09/02/2012 Inactive lisinopril 40 mg tablet RxNorm: 071851 1 Tablet(s) PO QD 07/21/2012 0 07/15/2013 Inactive Crestor 10 mg tablet RxNorm: 934026 1 Tablet(s) PO QD 07/21/201210/04 Inactive amlodipine 10 mg tablet RxNorm: 737625 1 Tablet(s) PO QHS 07/21/2012 07/15/2013 Inactive metformin ER 500 mg tablet,extended release 24 hr RxNorm: 86 0977 Tablet(s) PO TAKE ONE TABLET BY MOUTH EVERY DAY 03/31/2012 12/22/2012 Inactive lisinopril 40 mg tablet RxNorm: 727521 1 Tablet(s) PO QD 07/29/2011 0 07/20/2012 Inactive amlodipine 10 mg tablet RxNorm: 641706 1 Tablet(s) PO QHS 07/29/2011 07/20/2012 Inactive amlodipine 10 mg Tab RxNorm: 665550 1 Tablet(s) PO QHS 07/29/2011 Inactive Viagra 100 mg tablet RxNorm: 599860 1 Tablet(s) PO as directed 07/0601/24/2013 Inactive TAKE ONE TABLET BY MOUTH DIRECTED Crestor 10 mg tablet RxNorm: 175480 1 Tablet(s) PO QD 07/29/201107/05 Inactive Norvasc 5 mg Tab RxNorm: 260465 1 Tablet(s) PO QD 07/16/2011 07/28/19 12 Inactive Norvasc 5 mg Tab RxNorm: 318819 1 Tablet(s) PO QD 06/26/2011 07/15/19 12 Inactive lisinopril 40 mg Tab RxNorm: 736909 1 Tablet(s) PO QD 05/13/201107/06 Inactive metformin ER 500 mg tablet,extended release 24 hr RxNorm: 86 0977 1 Tablet(s) PO QD 03/18/2011 07/28/2011 Inactive Crestor 10 mg Tab RxNorm: 895445 1 Tablet(s) PO QHS 01/27/20112011 Inactive metformin ER 500 mg 24 hr Tab RxNorm: 474666 1 Tablet(s) PO QD 11/0403/17/2011 Inactive Viagra 100 mg Tab RxNorm: 456303 Tablet(s) PO TAKE ON E TABLET BY MOUTH DIRECTED 08/26/2010 07/28/2011 Inactive metformin ER 500 mg 24 hr Tab RxNorm: 914352 1 Tablet(s) PO QD 07/0611/18/2010 Inactive Crestor 10 mg Tab RxNorm: 357728 1 Tablet(s) PO QHS 07/30/20102010 Inactive Crestor 10 mg Tab RxNorm: 869308 1 Tablet(s) PO QHS 05/20/20102010 Inactive Wellbutrin SR 150 mg Tab RxNorm: 204207 1 Tablet(s) PO QAM 04/24/19 11 07/22/2010 Inactive Multivitamin And Mineral tablet RxNorm: 1 Tablet(s) PO QD No Start Date Active FreeStyle Lite Strips RxNorm: 1 Unit Dose Miscel laneous AC & HS check blood sugar AC and HS No Start Date Active Co Q-10 200 mg capsule RxNorm: 881932 1 Capsule(s) PO QD No Start Date Active lancets RxNorm: 1 Milliliter(s) Miscellaneous AC & HS No Start Robert e Active Vitamin D3 4,000 unit capsule RxNorm: 5487429 1 Capsule(s) PO QD No Start Date 07/08/2016 Inactive Fish Oil 360 mg-1,200 mg capsule RxNorm: 966909 2 Capsule(s) PO QD No Start Date 01/30/2019 Inactive hydrocodone 5 mg-acetaminophen 325 mg tablet RxNorm: 815245 1 Tablet(s) PO Q4H as needed for severe pain No Start Date 12/30/2015 Inactive Xanax 0.25 mg tablet RxNorm: 900019 1/2 Tablet(s) PO PRN for se andrea stress No Start Date 07/08/2016 Inactive lisinopril 40 mg Tab RxNorm: 448202 1 Tablet(s) PO QD No Start Date 0 05/12/2011 Inactive Fish Oil 1,000 mg capsule RxNorm: 1 Capsule(s) PO QD No Start Date 09/18/2014 Inactive naproxen 500 mg Tab RxNorm: 987708 1 Tablet(s) PO BID No Start Date 0 07/28/2011 Inactive aspirin 81 mg tablet RxNorm: 435208 1 Tablet(s) PO QD No Start Date 0 05/09/2018 Inactive Crestor 10 mg Tab RxNorm: 774642 1 Tablet(s) PO QD No Start Date 07/06 Inactive Crestor 5 mg tablet RxNorm: 271319 1 Tablet(s) PO QD No Start Date Inactive Fish Oil Oral RxNorm: Oral No Start Date 09/18/2014 Inactive Viagra 100 mg Tab RxNorm: 282325 1 Tablet(s) PO as directed No Star [...] Date S vic Location GLYCOSYLATED HEMOGLOBIN TEST 43986 Hgb A1c 12779-0 6.7 % 0 05/24/2019 Unknown COMPREHENSIVE METABOLIC 56002 AST 21 U/L 2019 Unknown COMPREHENSIVE METABOLIC 09227 ALT 26 U/L 2019 Unknown COMPREHENSIVE METABOLIC 95478 BUN 14 mg/dL 2019 Unknown COMPREHENSIVE METABOLIC 82068 ALBUMIN 4.4 g/dL 2019 Unknown COMPREHENSIVE METABOLIC 67358 CHLORIDE 102 mmol/L 05/24 Unknown COMPREHENSIVE METABOLIC 59966 Bili Total 0.4 mg/dL 05/24 Unknown COMPREHENSIVE METABOLIC 14634 ALK PHOS 55 U/L 2019 Unknown COMPREHENSIVE METABOLIC 84656 SODIUM 139 mmol/L 05/24 Unknown COMPREHENSIVE METABOLIC 44566 CREATININE 1.28 mg/dL 05/07 Unknown COMPREHENSIVE METABOLIC 99466 CALCIUM 9.7 mg/dL 2019 Unknown COMPREHENSIVE METABOLIC 17012 POTASSIUM 4.7 mmol/L 05/24 Unknown COMPREHENSIVE METABOLIC 41349 Total Protein 6.8 g/dL Unknown COMPREHENSIVE METABOLIC 48541 Glucose 130 mg/dL 2019 Unknown COMPREHENSIVE METABOLIC 85579 Bicarbonate 29 mmol/L 05/07 Unknown COMPREHENSIVE METABOLIC 52013 AGAP 8 mmol/L 2019 Unknown MEAN GLUC 9051555 Calc Mean Gluc 146 mg/dL 05/24/2019 Unkn own GFR CALC [id number] GFR Non Afr Amr 56 mL/min 05/24/2019 Unk nown GFR CALC [id number] GFR Afr Amr >60 mL/min 05/24/2019 Unknow n MEAN GLUC 0164553 Calc Mean Gluc 140 mg/dL 01/26/2019 Unkn own GLYCOSYLATED HEMOGLOBIN TEST 17661 Hgb A1c 13525-6 6.5 % 1 Unknown COMPREHENSIVE METABOLIC 82530 AST 17 U/L 2018 Unknown COMPREHENSIVE METABOLIC 83691 ALT 19 U/L 2018 Unknown COMPREHENSIVE METABOLIC 23119 BUN 19 mg/dL 2018 Unknown COMPREHENSIVE METABOLIC 68202 ALBUMIN 4.3 g/dL 2018 Unknown COMPREHENSIVE METABOLIC 79017 CHLORIDE 103 mmol/L 01/26 Unknown COMPREHENSIVE METABOLIC 64876 Bili Total 0.6 mg/dL 01/26 Unknown COMPREHENSIVE METABOLIC 90952 ALK PHOS 60 U/L 2018 Unknown COMPREHENSIVE METABOLIC 81834 SODIUM 140 mmol/L 01/26 Unknown COMPREHENSIVE METABOLIC 55836 CREATININE 1.21 mg/dL 01/05 Unknown COMPREHENSIVE METABOLIC 46390 CALCIUM 9.6 mg/dL 2018 Unknown COMPREHENSIVE METABOLIC 38572 POTASSIUM 4.5 mmol/L 01/26 Unknown COMPREHENSIVE METABOLIC 94424 Total Protein 6.7 g/dL Unknown COMPREHENSIVE METABOLIC 26201 Glucose 111 mg/dL 2018 Unknown COMPREHENSIVE METABOLIC 51441 Bicarbonate 28 mmol/L 01/05 Unknown COMPREHENSIVE METABOLIC 30892 AGAP 9 mmol/L 2018 Unknown COMPLETE BLOOD COUNT [id number] WBC 10.7 10e9/L 019 Unknown COMPLETE BLOOD COUNT [id number] RBC 4.38 10e12/L 2018 Unknown COMPLETE BLOOD COUNT [id number] HEMOGLOBIN 13.7 g/dL 01/27/20 19 Unknown COMPLETE BLOOD COUNT [id number] HEMATOCRIT 42.0 % 01/27/20 19 Unknown COMPLETE BLOOD COUNT [id number] MCV 95.9 fL 9 Unknown COMPLETE BLOOD COUNT [id number] MCH 31.3 pg 9 Unknown COMPLETE BLOOD COUNT 1712094 MCHC 32.6 g/dL 9 Unknown COMPLETE BLOOD COUNT [id number] PLATELET COUNT 232 10e9/L Unknown COMPLETE BLOOD COUNT 1048206 Mean Plt Volume 11.4 fL Unknown COMPLETE BLOOD COUNT 8025944 Neut Auto 68.7 % 9 Unknown COMPLETE BLOOD COUNT [id number] Lymph Auto 21.2 % 01/27/20 19 Unknown COMPLETE BLOOD COUNT 7501906 [place] Auto 8.1 % 9 Unknown COMPLETE BLOOD COUNT [id number] RDW 14.1 % 9 Unknown COMPLETE BLOOD COUNT [id number] Eos Auto 1.8 % 9 Unknown COMPLETE BLOOD COUNT 1301845 Baso Auto 0.2 % 9 Unknown COMPLETE BLOOD COUNT [id number] Neutrophil Abs 7.35 10e9/L Unknown COMPLETE BLOOD COUNT [id number] Lymphocyte Abs 2.27 10e9/L Unknown COMPLETE BLOOD COUNT [id number] Monocyte Abs 0.87 10e9/L 01/05 Unknown COMPLETE BLOOD COUNT [id number] Eosinophil Abs 0.19 10e9/L Unknown COMPLETE BLOOD COUNT [id number] RDW-SD 47.7 fL 9 Unknown COMPLETE BLOOD COUNT [id number] Basophil Abs 0.02 10e9/L 01/05 Unknown GFR CALC 8339635 GFR Non Afr Amr 59 mL/min 01/26/2019 Unk nown GFR CALC [id number] GFR Afr Amr >60 mL/min 01/26/2019 Unknow n LIPID GROUP 76630 Cholesterol 215 mg/dL 01/26/2019 Unkno wn LIPID GROUP 76302 Triglyceride 221 mg/dL 01/26/2019 Unkn own LIP[facility] GROUP 50315 HDL CHOLESTEROL 41 mg/dL 01/26/2019 U nknown LIPID GROUP 08387 Chol/HDL Ratio 5.24 ratio 01/26/2019 U nknown LIPID GROUP 10316 NON-HDL Chol 174 mg/dL 01/26/2019 Unkn own LIPID GROUP 62653 LDL Cholesterol 130 mg/dL 01/26/2019 [place] [address] Glucose 104 mg/dL 09/30 [place] [address] CREATININE 1.18 mg/dL [place] [address] BUN 19 mg/dL 09/30 [place] [address] SODIUM 139 mmol/L 09/05 [place] [address] POTASSIUM 4.1 mmol/L 09/05 [place] [address] CHLORIDE 105 mmol/L 09/05 [place] [address] Bicarbonate 26 mmol/L [place] [address] AGAP 8 mmol/L 09/30 [place] [address] CALCIUM 9.3 mg/dL 09/30 Unknown GFR CALC [id number] GFR Non Afr Amr >60 mL/min 09/30/2018 Un known GFR CALC [id number] GFR Afr Amr >60 mL/min 09/30/2018 Unknow n MICROALBUMIN URINE RANDOM 38721 U Microalbumin <2.0 mg/L 08/19/2018 Unknown MICROALBUMIN URINE RANDOM 43918 U Creatinine 66 mg/dL 0 08/19/2018 Unknown MICROALBUMIN URINE RANDOM 94301 ALB/CR Ratio <3.0 mg/gCR 08/19/2018 Unknown COMPREHENSIVE METABOLIC 99501 AST 21 U/L 2018 Unknown COMPREHENSIVE METABOLIC 24005 ALT 20 U/L 2018 Unknown COMPREHENSIVE METABOLIC 19085 BUN 31 mg/dL 2018 Unknown COMPREHENSIVE METABOLIC 15779 ALBUMIN 4.4 g/dL 2018 Unknown COMPREHENSIVE METABOLIC 17217 CHLORIDE 105 mmol/L 08/16 Unknown COMPREHENSIVE METABOLIC 44816 Bili Total 0.5 mg/dL 08/16 Unknown COMPREHENSIVE METABOLIC 49897 ALK PHOS 40 U/L 2018 Unknown COMPREHENSIVE METABOLIC 86010 SODIUM 140 mmol/L 08/16 Unknown COMPREHENSIVE METABOLIC 33507 CREATININE 1.45 mg/dL 08/04 Unknown COMPREHENSIVE METABOLIC 87146 CALCIUM 9.8 mg/dL 2018 Unknown COMPREHENSIVE METABOLIC 47648 POTASSIUM 5.1 mmol/L 08/16 Unknown COMPREHENSIVE METABOLIC 32024 Total Protein 6.9 g/dL Unknown COMPREHENSIVE METABOLIC 67081 Glucose 110 mg/dL 2018 Unknown COMPREHENSIVE METABOLIC 53891 Bicarbonate 25 mmol/L 08/04 Unknown COMPREHENSIVE METABOLIC 14918 AGAP 10 mmol/L 2018 Unknown GFR CALC 9375914 GFR Non Afr Amr 48 mL/min 08/16/2018 Unk nown GFR CALC [id number] GFR Afr Amr 58 mL/min 08/16/2018 Unknown GLYCOSYLATED HEMOGLOBIN TEST 89011 Hgb A1c 05918-5 .9 % 0 08/16/2018 Unknown LIP[facility] GROUP 00144 Cholesterol 226 mg/dL 08/16/2018 Unkno wn LIPID GROUP 71651 Triglyceride 335 mg/dL 08/16/2018 Unkn own LIP[facility] GROUP 10402 HDL CHOLESTEROL 32 mg/dL 08/16/2018 U nknown LIPID GROUP 22925 Chol/HDL Ratio 7.06 ratio 08/16/2018 U nknown LIPID GROUP 21521 NON-HDL Chol 194 mg/dL 08/16/2018 Unkn own LIPID GROUP 58549 LDL Cholesterol 127 mg/dL 08/16/2018 U nknown THYROID STIMULATING HORMONE 89119 TSH 2.475 uIU/mL 08/16/2018 Unknown COMPLETE BLOOD COUNT 1302935 WBC 7.5 10e9/L 08/17/19 19 Unknown COMPLETE BLOOD COUNT 0827947 RBC 4.09 10e12/L 2018 Unknown COMPLETE BLOOD COUNT [id number] HEMOGLOBIN 12.9 g/dL 08/17/19 19 Unknown COMPLETE BLOOD COUNT 5804383 HEMATOCRIT 40.0 % 08/17/19 19 Unknown COMPLETE BLOOD COUNT 5272624 MCV 97.8 fL 9 Unknown COMPLETE BLOOD COUNT [id number] MCH 31.5 pg 9 Unknown COMPLETE BLOOD COUNT 1380546 MCHC 32.3 g/dL 9 Unknown COMPLETE BLOOD COUNT 9476446 PLATELET COUNT 258 10e9/L Unknown COMPLETE BLOOD COUNT 8144028 Mean Plt Volume 11.4 fL Unknown COMPLETE BLOOD COUNT 3584856 Neut Auto 62.9 % 9 Unknown COMPLETE BLOOD COUNT 5254844 Lymph Auto 27.3 % 08/17/19 19 Unknown COMPLETE BLOOD COUNT [id number] [place] Auto 8.2 % 9 Unknown COMPLETE BLOOD COUNT 2541210 RDW 13.3 % 9 Unknown COMPLETE BLOOD COUNT 9157970 Eos Auto 1.5 % 9 Unknown COMPLETE BLOOD COUNT 5430906 Baso Auto 0.1 % 9 Unknown COMPLETE BLOOD COUNT 1917513 Neutrophil Abs 4.72 10e9/L Unknown COMPLETE BLOOD COUNT 8436109 Lymphocyte Abs 2.05 10e9/L Unknown COMPLETE BLOOD COUNT [id number] Monocyte Abs 0.62 10e9/L 08/04 Unknown COMPLETE BLOOD COUNT [id number] Eosinophil Abs 0.11 10e9/L Unknown COMPLETE BLOOD COUNT [id number] RDW-SD 46.7 fL 9 Unknown COMPLETE BLOOD COUNT [id number] Basophil Abs 0.01 10e9/L 08/04 Unknown MEAN GLUC [id number] Calc Mean Gluc 123 mg/dL 08/16/2018 Unkn own LIPID GROUP 31585 Cholesterol 212 mg/dL 05/05/2018 Unkno wn LIPID GROUP 06020 Triglyceride 271 mg/dL 05/05/2018 Unkn own [facility] 69217 HDL CHOLESTEROL 38 mg/dL 05/05/2018 U nknown LIPID GROUP 09426 Chol/HDL Ratio 5.58 ratio 05/05/2018 U nknown LIPID GROUP 86164 NON-HDL Chol 174 mg/dL 05/05/2018 Unkn own LIP[facility] GROUP 80697 LDL Cholesterol 120 mg/dL 05/05/2018 U nknown GFR CALC [id number] GFR Non Afr Amr 49 mL/min 05/05/2018 Unk nown GFR CALC [id number] GFR Afr Amr 59 mL/min 05/05/2018 Unknown GLYCOSYLATED HEMOGLOBIN TEST 67560 Hgb A1c 89628-1 6.0 % 0 05/05/2018 Unknown MEAN GLUC [id number] Calc Mean Gluc 126 mg/dL 05/05/2018 Unkn own COMPREHENSIVE METABOLIC 23071 AST 18 U/L 2018 Unknown COMPREHENSIVE METABOLIC 77926 ALT 23 U/L 2018 Unknown COMPREHENSIVE METABOLIC 65974 BUN 30 mg/dL 2018 Unknown COMPREHENSIVE METABOLIC 51231 ALBUMIN 4.3 g/dL 2018 Unknown COMPREHENSIVE METABOLIC 51078 CHLORIDE 106 mmol/L 05/05 Unknown COMPREHENSIVE METABOLIC 05819 Bili Total 0.4 mg/dL 05/05 Unknown COMPREHENSIVE METABOLIC 28268 ALK PHOS 39 U/L 2018 Unknown COMPREHENSIVE METABOLIC 59418 SODIUM 139 mmol/L 05/05 Unknown COMPREHENSIVE METABOLIC 99005 CREATININE 1.44 mg/dL 04/08 Unknown COMPREHENSIVE METABOLIC 35933 CALCIUM 9.6 mg/dL 2018 Unknown COMPREHENSIVE METABOLIC 93292 POTASSIUM 4.7 mmol/L 05/05 Unknown COMPREHENSIVE METABOLIC 96750 Total Protein 6.6 g/dL Unknown COMPREHENSIVE METABOLIC 91213 Glucose 112 mg/dL 2018 Unknown COMPREHENSIVE METABOLIC 67798 Bicarbonate 28 mmol/L 04/08 Unknown COMPREHENSIVE METABOLIC 00173 AGAP 5 mmol/L 2018 Unknown THYROID STIMULATING HORMONE 62209 TSH 3.725 uIU/mL 05/05/2018 Unknown COMPLETE BLOOD COUNT [id number] WBC 8.2 10e9/L 05/05/19 19 Unknown COMPLETE BLOOD COUNT [id number] RBC 4.02 10e12/L 2018 Unknown COMPLETE BLOOD COUNT [id number] HEMOGLOBIN 12.7 g/dL 05/05/19 19 Unknown COMPLETE BLOOD COUNT [id number] HEMATOCRIT 39.3 % 05/05/19 19 Unknown COMPLETE BLOOD COUNT [id number] MCV 97.8 fL 9 Unknown COMPLETE BLOOD COUNT [id number] MCH 31.6 pg 9 Unknown COMPLETE BLOOD COUNT [id number] MCHC 32.3 g/dL 9 Unknown COMPLETE BLOOD COUNT 1557187 PLATELET COUNT 213 10e9/L Unknown COMPLETE BLOOD COUNT [id number] Mean Plt Volume 11.7 fL Unknown COMPLETE BLOOD COUNT 2705007 Neut Auto 55.7 % 9 Unknown COMPLETE BLOOD COUNT [id number] Lymph Auto 33.2 % 05/05/19 19 Unknown COMPLETE BLOOD COUNT 7357425 [place] Auto 8.5 % 9 Unknown COMPLETE BLOOD COUNT 8254403 RDW 13.9 % 9 Unknown COMPLETE BLOOD COUNT 6353466 Eos Auto 2.4 % 9 Unknown COMPLETE BLOOD COUNT [id number] Baso Auto 0.2 % 9 Unknown COMPLETE BLOOD COUNT [id number] Neutrophil Abs 4.57 10e9/L Unknown COMPLETE BLOOD COUNT [id number] Lymphocyte Abs 2.72 10e9/L Unknown COMPLETE BLOOD COUNT [id number] Monocyte Abs 0.70 10e9/L 04/08 Unknown COMPLETE BLOOD COUNT [id number] Eosinophil Abs 0.20 10e9/L Unknown COMPLETE BLOOD COUNT [id number] RDW-SD 48.8 fL 9 Unknown COMPLETE BLOOD COUNT [id number] Basophil Abs 0.02 10e9/L 04/08 Unknown MICROALBUMIN URINE RANDOM 08777 U Microalbumin 19.3 mg/L 01/19/2018 Unknown MICROALBUMIN URINE RANDOM 00191 U Creatinine 96 mg/dL 1 Unknown MICROALBUMIN URINE RANDOM 28439 ALB/CR Ratio 20.1 mg/gCR 01/19/2018 Unknown LIPID GROUP 25528 Cholesterol 173 mg/dL 01/13/2018 Unkno wn LIPID GROUP 00103 Triglyceride 386 mg/dL 01/13/2018 Unkn own LIPID GROUP 31370 HDL CHOLESTEROL 37 mg/dL 01/13/2018 U nknown LIPID GROUP 56811 Chol/HDL Ratio 4.68 ratio 01/13/2018 U nknown LIPID GROUP 98919 NON-HDL Chol 136 mg/dL 01/13/2018 Unkn own LIPID GROUP 07733 LDL Cholesterol 59 mg/dL 01/13/2018 U nknown COMPLETE BLOOD COUNT [id number] WBC TNP:Client Request 01/13/2018 Unknown COMPLETE BLOOD COUNT [id number] RBC TNP:Client Request 01/13/2018 Unknown COMPLETE BLOOD COUNT [id number] HEMOGLOBIN TNP:Client Request 01/13/2018 Unknown COMPLETE BLOOD COUNT [id number] HEMATOCRIT TNP:Client Request 01/13/2018 Unknown COMPLETE BLOOD COUNT [id number] MCV TNP:Client Request 01/13/2018 Unknown COMPLETE BLOOD COUNT [id number] MCH TNP:Client Request 01/13/2018 Unknown COMPLETE BLOOD COUNT [id number] MCHC TNP:Client Request 01/13/2018 Unknown COMPLETE BLOOD COUNT [id number] PLATELET COUNT TNP:Client Req uest 01/13/2018 Unknown COMPLETE BLOOD COUNT 1857377 Mean Plt Volume TNP:Client Re quest 01/13/2018 Unknown COMPLETE BLOOD COUNT [id number] Neut Auto TNP:Client Request 01/13/2018 Unknown COMPLETE BLOOD COUNT [id number] Lymph Auto TNP:Client Request 01/13/2018 Unknown COMPLETE BLOOD COUNT [id number] [place] Auto TNP:Client Request 01/13/2018 Unknown COMPLETE BLOOD COUNT [id number] RDW TNP:Client Request 01/13/2018 Unknown COMPLETE BLOOD COUNT [id number] Eos Auto TNP:Client Request 01/13/2018 Unknown COMPLETE BLOOD COUNT [id number] Baso Auto TNP:Client Request 01/13/2018 Unknown COMPLETE BLOOD COUNT [id number] Neutrophil Abs TNP:Client Req uest 01/13/2018 Unknown COMPLETE BLOOD COUNT [id number] Lymphocyte Abs TNP:Client Req uest 01/13/2018 Unknown COMPLETE BLOOD COUNT [id number] Monocyte Abs TNP:Client Reque st 01/13/2018 Unknown COMPLETE BLOOD COUNT 8329005 Eosinophil Abs TNP:Client Req uest 01/13/2018 Unknown COMPLETE BLOOD COUNT [id number] RDW-SD TNP:Client Request 01/13/2018 Unknown COMPLETE BLOOD COUNT [id number] Basophil Abs TNP:Client Reque st 01/13/2018 Unknown GLYCOSYLATED HEMOGLOBIN TEST 56193 Hgb A1c 35336-5 6.2 % 1 Unknown THYROID STIMULATING HORMONE 61591 TSH 2.764 uIU/mL 01/13/2018 Unknown COMPREHENSIVE METABOLIC 54028 AST 19 U/L 2017 Unknown COMPREHENSIVE METABOLIC 55519 ALT 21 U/L 2017 Unknown COMPREHENSIVE METABOLIC 71362 BUN 16 mg/dL 2017 Unknown COMPREHENSIVE METABOLIC 05539 ALBUMIN 4.2 g/dL 2017 Unknown COMPREHENSIVE METABOLIC 35054 CHLORIDE 105 mmol/L 01/13 Unknown COMPREHENSIVE METABOLIC 48671 Bili Total 0.5 mg/dL 01/13 Unknown COMPREHENSIVE METABOLIC 36880 ALK PHOS 85 U/L 2017 Unknown COMPREHENSIVE METABOLIC 52474 SODIUM 139 mmol/L 01/13 Unknown COMPREHENSIVE METABOLIC 95582 CREATININE 1.07 mg/dL 01/04 Unknown COMPREHENSIVE METABOLIC 92438 CALCIUM 9.2 mg/dL 2017 Unknown COMPREHENSIVE METABOLIC 03626 POTASSIUM 4.4 mmol/L 01/13 Unknown COMPREHENSIVE METABOLIC 94671 Total Protein 7.7 g/dL Unknown COMPREHENSIVE METABOLIC 27981 Glucose 130 mg/dL 2017 Unknown COMPREHENSIVE METABOLIC 22067 Bicarbonate 27 mmol/L 01/04 Unknown COMPREHENSIVE METABOLIC 13013 AGAP 7 mmol/L 2017 Unknown PSA EQUIMOLAR JERSON 21094 PSA Total 1.16 ng/mL 8 Unknown MEAN GLUC 5777794 Calc Mean Gluc 131 mg/dL 01/13/2018 Unkn own GFR CALC 0687405 GFR Non Afr Amr >60 mL/min 01/13/2018 Un known GFR CALC 5192541 GFR Afr Amr >60 mL/min 01/13/2018 Unknow n MEAN GLUC 9957239 Calc Mean Gluc 134 mg/dL 10/06/2017 Unkn own GFR CALC 3363314 GFR Non Afr Amr >60 mL/min 10/06/2017 Un known GFR CALC 7891504 GFR Afr Amr >60 mL/min 10/06/2017 Unknow n GLYCOSYLATED HEMOGLOBIN TEST 70042 Hgb A1c 47585-0 6.3 % 0 10/06/2017 Unknown VITAMIN B 12 55777 VITAMIN B12 1202 pg/mL 10/06/2017 Unk nown COMPLETE BLOOD COUNT [id number] WBC 7.4 10e9/L 10/07/19 18 Unknown COMPLETE BLOOD COUNT [id number] RBC 4.24 10e12/L 2017 Unknown COMPLETE BLOOD COUNT [id number] HEMOGLOBIN 13.5 g/dL 10/07/19 18 Unknown COMPLETE BLOOD COUNT [id number] HEMATOCRIT 41.6 % 10/07/19 18 Unknown COMPLETE BLOOD COUNT 7361822 MCV 98.1 fL 8 Unknown COMPLETE BLOOD COUNT 4564919 MCH 31.8 pg 8 Unknown COMPLETE BLOOD COUNT 5853422 MCHC 32.5 g/dL 8 Unknown COMPLETE BLOOD COUNT [id number] PLATELET COUNT 223 10e9/L 06/2017 Unknown COMPLETE BLOOD COUNT [id number] Mean Plt Volume 11.9 fL 06/2017 Unknown COMPLETE BLOOD COUNT 0513222 Neut Auto 58.0 % 8 Unknown COMPLETE BLOOD COUNT 7083555 Lymph Auto 29.7 % 10/07/19 18 Unknown COMPLETE BLOOD COUNT 7085445 [place] Auto 8.3 % 8 Unknown COMPLETE BLOOD COUNT 1088925 RDW 14.0 % 8 Unknown COMPLETE BLOOD COUNT 7087160 Eos Auto 3.7 % 8 Unknown COMPLETE BLOOD COUNT 7826567 Baso Auto 0.3 % 8 Unknown COMPLETE BLOOD COUNT 8032897 Neutrophil Abs 4.29 10e9/L Unknown COMPLETE BLOOD COUNT 2367039 Lymphocyte Abs 2.20 10e9/L Unknown COMPLETE BLOOD COUNT 6189014 Monocyte Abs 0.61 10e9/L 06/2017 Unknown COMPLETE BLOOD COUNT 7136710 Eosinophil Abs 0.27 10e9/L Unknown COMPLETE BLOOD COUNT 7598578 RDW-SD 48.6 fL 8 Unknown COMPLETE BLOOD COUNT 7063892 Basophil Abs 0.02 10e9/L 06/2017 Unknown LIPID GROUP 12328 Cholesterol 216 mg/dL 10/06/2017 Unkno wn LIPID GROUP 18614 Triglyceride 335 mg/dL 10/06/2017 Unkn own LIPID GROUP 03892 HDL CHOLESTEROL 33 mg/dL 10/06/2017 U nknown LIPID GROUP 67066 Chol/HDL Ratio 6.55 ratio 10/06/2017 U nknown LIPID GROUP 93995 NON-HDL Chol 183 mg/dL 10/06/2017 Unkn own LIPID GROUP 45623 LDL Cholesterol 116 mg/dL 10/06/2017 U nknown COMPREHENSIVE METABOLIC 97065 AST 15 U/L 2017 Unknown COMPREHENSIVE METABOLIC 82892 ALT 15 U/L 2017 Unknown COMPREHENSIVE METABOLIC 90565 BUN 21 mg/dL 2017 Unknown COMPREHENSIVE METABOLIC 09566 ALBUMIN 4.1 g/dL 2017 Unknown COMPREHENSIVE METABOLIC 20325 CHLORIDE 107 mmol/L 10/06 Unknown COMPREHENSIVE METABOLIC 53606 Bili Total 0.6 mg/dL 10/06 Unknown COMPREHENSIVE METABOLIC 71629 ALK PHOS 68 U/L 2017 Unknown COMPREHENSIVE METABOLIC 37599 SODIUM 140 mmol/L 10/06 Unknown COMPREHENSIVE METABOLIC 57467 CREATININE 1.12 mg/dL 06/2017 Unknown COMPREHENSIVE METABOLIC 31636 CALCIUM 9.7 mg/dL 2017 Unknown COMPREHENSIVE METABOLIC 05442 POTASSIUM 4.6 mmol/L 10/06 Unknown COMPREHENSIVE METABOLIC 06385 Total Protein 6.6 g/dL Unknown COMPREHENSIVE METABOLIC 77918 Glucose 114 mg/dL 2017 Unknown COMPREHENSIVE METABOLIC 41785 Bicarbonate 26 mmol/L 06/2017 Unknown COMPREHENSIVE METABOLIC 72161 AGAP 7 mmol/L 2017 Unknown GLYCOSYLATED HEMOGLOBIN TEST 24526 Hgb A1c 72492-4 6.1 % 1 05/05/2016 Unknown GFR CALC 2965598 GFR Non Afr Amr >60 mL/min 03/05/2017 Un known GFR CALC 1996198 GFR Afr Amr >60 mL/min 03/05/2017 Unknow n MEAN GLUC 2582883 Calc Mean Gluc 128 mg/dL 03/05/2017 Unkn own COMPREHENSIVE METABOLIC 74880 AST 18 U/L 2016 Unknown COMPREHENSIVE METABOLIC 73647 ALT 20 U/L 2016 Unknown COMPREHENSIVE METABOLIC 49555 BUN 15 mg/dL 2016 Unknown COMPREHENSIVE METABOLIC 63572 ALBUMIN 4.3 g/dL 2016 Unknown COMPREHENSIVE METABOLIC 93307 CHLORIDE 105 mmol/L 03/05 Unknown COMPREHENSIVE METABOLIC 62674 Bili Total 0.5 mg/dL 03/05 Unknown COMPREHENSIVE METABOLIC 98105 ALK PHOS 57 U/L 2016 Unknown COMPREHENSIVE METABOLIC 55240 SODIUM 141 mmol/L 03/05 Unknown COMPREHENSIVE METABOLIC 37933 CREATININE 1.07 mg/dL 02/06 Unknown COMPREHENSIVE METABOLIC 07448 CALCIUM 9.3 mg/dL 2016 Unknown COMPREHENSIVE METABOLIC 85138 POTASSIUM 4.8 mmol/L 03/05 Unknown COMPREHENSIVE METABOLIC 48606 Total Protein 6.2 g/dL Unknown COMPREHENSIVE METABOLIC 72318 Glucose 118 mg/dL 2016 Unknown COMPREHENSIVE METABOLIC 62450 Bicarbonate 29 mmol/L 02/06 Unknown COMPREHENSIVE METABOLIC 73008 AGAP 7 mmol/L 2016 Unknown FREE T4 78444 T4 Free 1.38 ng/dL 03/05/2017 Unknown COMPLETE BLOOD COUNT 1377259 WBC 8.4 10e9/L 03/05/20 17 Unknown COMPLETE BLOOD COUNT [id number] RBC 4.11 10e12/L 2016 Unknown COMPLETE BLOOD COUNT 1500782 HEMOGLOBIN 12.8 g/dL 03/05/20 17 Unknown COMPLETE BLOOD COUNT 6483922 HEMATOCRIT 40.1 % 03/05/20 17 Unknown COMPLETE BLOOD COUNT 8403944 MCV 97.6 fL 7 Unknown COMPLETE BLOOD COUNT 7928371 MCH 31.1 pg 7 Unknown COMPLETE BLOOD COUNT 5015206 MCHC 31.9 g/dL 7 Unknown COMPLETE BLOOD COUNT 9903527 PLATELET COUNT 184 10e9/L Unknown COMPLETE BLOOD COUNT 8509842 Mean Plt Volume 11.3 fL Unknown COMPLETE BLOOD COUNT 0160262 Neut Auto 62.5 % 7 Unknown COMPLETE BLOOD COUNT 7514438 Lymph Auto 26.4 % 03/05/20 17 Unknown COMPLETE BLOOD COUNT 6278888 [place] Auto 7.9 % 7 Unknown COMPLETE BLOOD COUNT 8543886 RDW 13.5 % 7 Unknown COMPLETE BLOOD COUNT 8300731 Eos Auto 3.0 % 7 Unknown COMPLETE BLOOD COUNT 8452507 Baso Auto 0.2 % 7 Unknown COMPLETE BLOOD COUNT 4222110 Neutrophil Abs 5.25 10e9/L Unknown COMPLETE BLOOD COUNT 5798822 Lymphocyte Abs 2.22 10e9/L Unknown COMPLETE BLOOD COUNT 6705811 Monocyte Abs 0.66 10e9/L 02/06 Unknown COMPLETE BLOOD COUNT 5570309 Eosinophil Abs 0.25 10e9/L Unknown COMPLETE BLOOD COUNT 6706006 RDW-SD 46.7 fL 7 Unknown COMPLETE BLOOD COUNT 1090867 Basophil Abs 0.02 10e9/L 02/06 Unknown THYROID STIMULATING HORMONE 95840 TSH 2.330 uIU/mL 03/05/2017 Unknown LIPID GROUP 84949 Cholesterol 135 mg/dL 03/05/2017 Unkno wn LIPID GROUP 33374 Triglyceride 297 mg/dL 03/05/2017 Unkn own LIPID GROUP 80460 HDL CHOLESTEROL 34 mg/dL 03/05/2017 U nknown LIPID GROUP 38990 Chol/HDL Ratio 3.97 ratio 03/05/2017 U nknown LIPID GROUP 50558 NON-HDL Chol 101 mg/dL 03/05/2017 Unkn own LIPID GROUP 54554 LDL Cholesterol 42 mg/dL 03/05/2017 U nknown GLYCOSYLATED HEMOGLOBIN TEST 87952 Hgb A1c 71074-3 6.5 % 1 05/07/2015 Unknown GFR CALC 9460990 GFR Non Afr Amr 55 mL/min 03/06/2016 Unk nown GFR CALC 0130585 GFR Afr Amr >60 mL/min 03/06/2016 Unknow n COMPLETE BLOOD COUNT 8622230 WBC 8.5 10e9/L 03/06/20 16 Unknown COMPLETE BLOOD COUNT [id number] RBC 4.32 10e12/L 2015 Unknown COMPLETE BLOOD COUNT 3365508 HEMOGLOBIN 13.5 g/dL 03/06/20 16 Unknown COMPLETE BLOOD COUNT 1139602 HEMATOCRIT 41.3 % 03/06/20 16 Unknown COMPLETE BLOOD COUNT 6588920 MCV 95.6 fL 6 Unknown COMPLETE BLOOD COUNT 1192862 MCH 31.3 pg 6 Unknown COMPLETE BLOOD COUNT 6331413 MCHC 32.7 g/dL 6 Unknown COMPLETE BLOOD COUNT 6649059 PLATELET COUNT 191 10e9/L 04/2015 Unknown COMPLETE BLOOD COUNT 8283937 Mean Plt Volume 11.7 fL 04/2015 Unknown COMPLETE BLOOD COUNT 1108152 Neut Auto 64.2 % 6 Unknown COMPLETE BLOOD COUNT 8188426 Lymph Auto 25.9 % 03/06/20 16 Unknown COMPLETE BLOOD COUNT 8549423 [place] Auto 7.8 % 6 Unknown COMPLETE BLOOD COUNT 9149376 RDW 13.4 % 6 Unknown COMPLETE BLOOD COUNT 6947315 Eos Auto 2.0 % 6 Unknown COMPLETE BLOOD COUNT 0239035 Baso Auto 0.1 % 6 Unknown COMPLETE BLOOD COUNT 6398533 Neutrophil Abs 5.46 10e9/L Unknown COMPLETE BLOOD COUNT 9125092 Lymphocyte Abs 2.20 10e9/L Unknown COMPLETE BLOOD COUNT [id number] Monocyte Abs 0.66 10e9/L 04/2015 Unknown COMPLETE BLOOD COUNT 0521044 Eosinophil Abs 0.17 10e9/L Unknown COMPLETE BLOOD COUNT 2648347 RDW-SD 45.0 fL 6 Unknown COMPLETE BLOOD COUNT 9279076 Basophil Abs 0.01 10e9/L 04/2015 Unknown FREE T4 89794 T4 Free 1.34 ng/dL 03/06/2016 Unknown MEAN GLUC 4436955 Calc Mean Gluc 140 mg/dL 03/06/2016 Unkn own COMPREHENSIVE METABOLIC 13107 AST 15 U/L 2015 Unknown COMPREHENSIVE METABOLIC 34674 ALT 18 U/L 2015 Unknown COMPREHENSIVE METABOLIC 23320 BUN 21 mg/dL 2015 Unknown COMPREHENSIVE METABOLIC 61909 ALBUMIN 4.3 g/dL 2015 Unknown COMPREHENSIVE METABOLIC 72315 CHLORIDE 103 mmol/L 03/06 Unknown COMPREHENSIVE METABOLIC 79130 Bili Total 0.4 mg/dL 03/06 Unknown COMPREHENSIVE METABOLIC 95559 ALK PHOS 68 U/L 2015 Unknown COMPREHENSIVE METABOLIC 92560 SODIUM 140 mmol/L 03/06 Unknown COMPREHENSIVE METABOLIC 17496 CREATININE 1.31 mg/dL 04/2015 Unknown COMPREHENSIVE METABOLIC 35408 CALCIUM 9.4 mg/dL 2015 Unknown COMPREHENSIVE METABOLIC 37005 POTASSIUM 4.8 mmol/L 03/06 Unknown COMPREHENSIVE METABOLIC 34234 Total Protein 6.6 g/dL Unknown COMPREHENSIVE METABOLIC 29851 Glucose 142 mg/dL 2015 Unknown COMPREHENSIVE METABOLIC 32342 Bicarbonate 29 mmol/L 04/2015 Unknown COMPREHENSIVE METABOLIC 00519 AGAP 8 mmol/L 2015 Unknown THYROID STIMULATING HORMONE 00341 TSH 2.288 uIU/mL 03/06/2016 Unknown LIPID GROUP 61918 Cholesterol 154 mg/dL 03/06/2016 Unkno wn LIPID GROUP 71843 Triglyceride 266 mg/dL 03/06/2016 Unkn own LIPID GROUP 37799 HDL CHOLESTEROL 38 mg/dL 03/06/2016 U nknown LIPID GROUP 08011 Chol/HDL Ratio 4.05 ratio 03/06/2016 U nknown LIPID GROUP 71037 NON-HDL Chol 116 mg/dL 03/06/2016 Unkn own LIPID GROUP 13393 LDL Cholesterol 63 mg/dL 03/06/2016 U nknown MEAN GLUC 3566340 Mean Glucose 128 mg/dL 08/31/2015 Unknow n COMPLETE BLOOD COUNT 7403893 WBC 8.4 10e9/L 08/31/19 16 Unknown COMPLETE BLOOD COUNT [id number] RBC 4.12 10e12/L 2015 Unknown COMPLETE BLOOD COUNT 3483916 HEMOGLOBIN 12.8 g/dL 08/31/19 16 Unknown COMPLETE BLOOD COUNT 1153939 HEMATOCRIT 39.6 % 08/31/19 16 Unknown COMPLETE BLOOD COUNT 9626216 MCV 96.1 fL 6 Unknown COMPLETE BLOOD COUNT 1622732 MCH 31.1 pg 6 Unknown COMPLETE BLOOD COUNT 3391094 MCHC 32.3 g/dL 6 Unknown COMPLETE BLOOD COUNT 7240987 PLATELET COUNT 184 10e9/L Unknown COMPLETE BLOOD COUNT 0199360 Mean Plt Volume 12.0 fL Unknown COMPLETE BLOOD COUNT 9055900 Neut Auto 59.8 % 6 Unknown COMPLETE BLOOD COUNT 2005100 Lymph Auto 27.9 % 08/31/19 16 Unknown COMPLETE BLOOD COUNT 7097946 [place] Auto 9.1 % 6 Unknown COMPLETE BLOOD COUNT 4156855 RDW 13.6 % 6 Unknown COMPLETE BLOOD COUNT 1886398 Eos Auto 3.1 % 6 Unknown COMPLETE BLOOD COUNT 8829164 Baso Auto 0.1 % 6 Unknown COMPLETE BLOOD COUNT 2540589 Neutrophil Abs 5.02 10e9/L Unknown COMPLETE BLOOD COUNT 3169359 Lymphoctye Abs 2.34 10e9/L Unknown COMPLETE BLOOD COUNT 4508766 Monocyte Abs 0.76 10e9/L 08/05 Unknown COMPLETE BLOOD COUNT 1338056 Eosinophil Abs 0.26 10e9/L Unknown COMPLETE BLOOD COUNT 0677482 RDW-SD 46.3 fL 6 Unknown COMPLETE BLOOD COUNT 2292664 Basophil Abs 0.01 10e9/L 08/05 Unknown GLYCOSYLATED HEMOGLOBIN TEST 05917 Hgb A1c 83745-1 6.1 % 0 08/31/2015 Unknown GFR CALC 4584015 GFR Non Afr Amr >60 mL/min 08/31/2015 Un known GFR CALC 7383776 GFR Afr Amr >60 mL/min 08/31/2015 Unknow n FREE T4 13303 T4 Free 1.21 ng/dL 08/31/2015 Unknown THYROID STIMULATING HORMONE 01027 TSH 2.988 uIU/mL 08/31/2015 Unknown COMPREHENSIVE METABOLIC 80743 AST 16 U/L 2015 Unknown COMPREHENSIVE METABOLIC 32639 ALT 19 U/L 2015 Unknown COMPREHENSIVE METABOLIC 85872 BUN 17 mg/dL 2015 Unknown COMPREHENSIVE METABOLIC 12781 ALBUMIN 4.3 g/dL 2015 Unknown COMPREHENSIVE METABOLIC 94880 CHLORIDE 107 mmol/L 08/30 Unknown COMPREHENSIVE METABOLIC 54875 Bili Total 0.4 mg/dL 08/30 Unknown COMPREHENSIVE METABOLIC 98926 ALK PHOS 66 U/L 2015 Unknown COMPREHENSIVE METABOLIC 75216 SODIUM 140 mmol/L 08/30 Unknown COMPREHENSIVE METABOLIC 18376 CREATININE 1.07 mg/dL 08/05 Unknown COMPREHENSIVE METABOLIC 85750 CALCIUM 9.5 mg/dL 2015 Unknown COMPREHENSIVE METABOLIC 76857 POTASSIUM 4.5 mmol/L 08/30 Unknown COMPREHENSIVE METABOLIC 76313 Total Protein 6.7 g/dL Unknown COMPREHENSIVE METABOLIC 41905 Glucose 122 mg/dL 2015 Unknown COMPREHENSIVE METABOLIC 57115 Bicarbonate 26 mmol/L 08/05 Unknown COMPREHENSIVE METABOLIC 68646 AGAP 7 mmol/L 2015 Unknown LIPID GROUP 09243 Cholesterol 171 mg/dL 08/31/2015 Unkno wn LIPID GROUP 16930 Triglyceride 428 mg/dL 08/31/2015 Unkn own LIPID GROUP 94402 HDL CHOLESTEROL 35 mg/dL 08/31/2015 U nknown LIPID GROUP 32343 Chol/HDL Ratio 4.89 ratio 08/31/2015 U nknon LIPID GROUP 78147 NON-HDL Chol 136 mg/dL 08/31/2015 Unkn own LIPID GROUP 31028 LDL Cholesterol 50 mg/dL 08/31/2015 U nknown PSA EQUIMOLAR JERSON 38129 PSA Total 0.47 ng/mL 6 Unknown GFR CALC 8395990 GFR AA >60 ML/MIN 01/12/2015 Unknown GFR CALC 4107340 GFR NON-AA >60 ML/MIN 01/12/2015 Unknown COMPREHENSIVE METABOLIC 52067 AST 18 U/L 2014 Unknown COMPREHENSIVE METABOLIC 33047 ALT 19 IU/L 2014 Unknown COMPREHENSIVE METABOLIC 34253 BUN 19 MG/DL 2014 Unknown COMPREHENSIVE METABOLIC 50964 ALBUMIN 4.7 GM/DL 2014 Unknown COMPREHENSIVE METABOLIC 63290 CHLORIDE 104 MMOL/L 01/12 Unknown COMPREHENSIVE METABOLIC 61684 BILI TOT 0.8 MG/DL 2014 Unknown COMPREHENSIVE METABOLIC 50645 ALK PHOS 58 U/L 2014 Unknown COMPREHENSIVE METABOLIC 89769 SODIUM 139 MMOL/L 01/12 Unknown COMPREHENSIVE METABOLIC 62575 CREATININE 1.09 MG/DL 12/2014 Unknown COMPREHENSIVE METABOLIC 61646 CALCIUM 9.6 MG/DL 2014 Unknown COMPREHENSIVE METABOLIC 57629 POTASSIUM 4.4 MMOL/L 01/12 Unknown COMPREHENSIVE METABOLIC 53943 PROT TOT 6.7 GM/DL 2014 Unknown COMPREHENSIVE METABOLIC 01599 Glucose 109 MG/DL 2014 Unknown COMPREHENSIVE METABOLIC 23156 BICARB 27 MMOL/L 2014 Unknown COMPREHENSIVE METABOLIC 09541 ANION GAP 8 MEQ/L 2014 Unknown LIPID GROUP 69169 HDL TEST 36 MG/DL 01/12/2015 Unknown LIPID GROUP 76529 TRIG 220 MG/DL 01/12/2015 Unknown LIPID GROUP 34789 TEST LDL 58 MG/DL 01/12/2015 Unknown LIPID GROUP 37219 CHOL 138 MG/DL 01/12/2015 Unknown LIPID GROUP 36865 RCHOL/HDL 3.83 RATIO 01/12/2015 Unknow n LIPID GROUP 59829 NON-HDL CH 102 MG/DL 01/12/2015 Unknow n GLYCOSYLATED HEMOGLOBIN TEST 58158 A1C HPLC 04560-6 6.1 % 1 Unknown COMPLETE BLOOD COUNT 4626130 WBC 7.1 10e9/L 01/13/20 15 Unknown COMPLETE BLOOD COUNT 9708357 RBC 4.38 10e12/L 2014 Unknown COMPLETE BLOOD COUNT 8454894 HGB 13.7 g/dL 5 Unknown COMPLETE BLOOD COUNT 2345069 HCT DET 41.3 % 5 Unknown COMPLETE BLOOD COUNT 1455185 MCV 94.3 fL 5 Unknown COMPLETE BLOOD COUNT 7878558 MCH 31.3 pg 5 Unknown COMPLETE BLOOD COUNT 7086708 MCHC 33.2 g/dL 5 Unknown COMPLETE BLOOD COUNT 7078356 PLT 174 10e9/L 01/13/20 15 Unknown COMPLETE BLOOD COUNT 0935772 MPV 11.8 fL 5 Unknown COMPLETE BLOOD COUNT 0267088 SAMIR % 61.3 % 5 Unknown COMPLETE BLOOD COUNT 8632173 LY % 28.3 % 5 Unknown COMPLETE BLOOD COUNT 0524733 MON % 7.6 % 5 Unknown COMPLETE BLOOD COUNT 8426834 EOS % 2.7 % 5 Unknown COMPLETE BLOOD COUNT 9747229 BASO % 0.1 % 5 Unknown COMPLETE BLOOD COUNT 5579384 RDW 13.1 % 5 Unknown COMPLETE BLOOD COUNT 0969718 ABS SAMIR 4.35 10e9/L 015 Unknown COMPLETE BLOOD COUNT 7330086 ABS LYMPH 2.01 10e9/L 015 Unknown COMPLETE BLOOD COUNT 7092899 ABS MONO 0.54 10e9/L 015 Unknown COMPLETE BLOOD COUNT 2638510 ABS EOS 0.19 10e9/L 015 Unknown COMPLETE BLOOD COUNT 8863450 ABS BASO 0.01 10e9/L 015 Unknown COMPLETE BLOOD COUNT 4376934 RDW-SD 43.9 fL 5 Unknown GLYCOSYLATED HEMOGLOBIN TEST 76245 A1C HPLC 65663-3 6.1 % 0 08/15/2014 Unknown COMPLETE BLOOD COUNT 9596911 WBC 9.7 10e9/L 08/16/19 15 Unknown COMPLETE BLOOD COUNT 0156361 RBC 4.29 10e12/L 2014 Unknown COMPLETE BLOOD COUNT 1166687 HGB 13.3 g/dL 5 Unknown COMPLETE BLOOD COUNT 1364649 HCT DET 40.5 % 5 Unknown COMPLETE BLOOD COUNT 1415640 MCV 94.4 fL 5 Unknown COMPLETE BLOOD COUNT 9186560 MCH 31.0 pg 5 Unknown COMPLETE BLOOD COUNT 5050731 MCHC 32.8 g/dL 5 Unknown COMPLETE BLOOD COUNT 9781605 PLT 227 10e9/L 08/16/19 15 Unknown COMPLETE BLOOD COUNT 4723526 MPV 11.0 fL 5 Unknown COMPLETE BLOOD COUNT 4957215 SAMIR % 66.4 % 5 Unknown COMPLETE BLOOD COUNT 7039171 LY % 23.7 % 5 Unknown COMPLETE BLOOD COUNT 7084954 MON % 8.1 % 5 Unknown COMPLETE BLOOD COUNT 1480074 EOS % 1.6 % 5 Unknown COMPLETE BLOOD COUNT 2272339 BASO % 0.2 % 5 Unknown COMPLETE BLOOD COUNT 0837567 RDW 13.4 % 5 Unknown COMPLETE BLOOD COUNT 3589324 ABS SAMIR 6.44 10e9/L 015 Unknown COMPLETE BLOOD COUNT 5196669 ABS LYMPH 2.30 10e9/L 015 Unknown COMPLETE BLOOD COUNT 8264226 ABS MONO 0.79 10e9/L 015 Unknown COMPLETE BLOOD COUNT 6475660 ABS EOS 0.16 10e9/L 015 Unknown COMPLETE BLOOD COUNT 9459190 ABS BASO 0.02 10e9/L 015 Unknown COMPLETE BLOOD COUNT 5599698 RDW-SD 44.7 fL 5 Unknown COMPREHENSIVE METABOLIC 65137 AST 17 U/L 2014 Unknown COMPREHENSIVE METABOLIC 85008 ALT 23 IU/L 2014 Unknown COMPREHENSIVE METABOLIC 76148 BUN 16 MG/DL 2014 Unknown COMPREHENSIVE METABOLIC 56469 ALBUMIN 4.3 GM/DL 2014 Unknown COMPREHENSIVE METABOLIC 76701 CHLORIDE 107 MMOL/L 08/15 Unknown COMPREHENSIVE METABOLIC 64650 BILI TOT 0.4 MG/DL 2014 Unknown COMPREHENSIVE METABOLIC 53605 ALK PHOS 91 U/L 2014 Unknown COMPREHENSIVE METABOLIC 40455 SODIUM 139 MMOL/L 08/15 Unknown COMPREHENSIVE METABOLIC 28140 CREATININE 1.07 MG/DL 08/04 Unknown COMPREHENSIVE METABOLIC 52200 CALCIUM 9.6 MG/DL 2014 Unknown COMPREHENSIVE METABOLIC 77547 POTASSIUM 4.6 MMOL/L 08/15 Unknown COMPREHENSIVE METABOLIC 08854 PROT TOT 6.7 GM/DL 2014 Unknown COMPREHENSIVE METABOLIC 24747 Glucose 111 MG/DL 2014 Unknown COMPREHENSIVE METABOLIC 22569 BICARB 27 MMOL/L 2014 Unknown COMPREHENSIVE METABOLIC 08540 ANION GAP 5 MEQ/L 2014 Unknown GFR CALC [id number] GFR AA >60 ML/MIN 08/15/2014 Unknown GFR CALC 9955631 GFR NON-AA >60 ML/MIN 08/15/2014 Unknown THYROID STIMULATING HORMONE 08298 TSH 1.598 uIU/ML 08/15/2014 Unknown LIPID GROUP 03387 HDL TEST 33 MG/DL 08/15/2014 Unknown LIPID GROUP 78608 TRIG 187 MG/DL 08/15/2014 Unknown LIPID GROUP 40303 TEST LDL 58 MG/DL 08/15/2014 Unknown LIPID GROUP 20259 CHOL 128 MG/DL 08/15/2014 Unknown LIPID GROUP 96627 RCHOL/HDL 3.88 RATIO 08/15/2014 Unknow n LIPID GROUP 97323 NON-HDL CH 95 MG/DL 08/15/2014 Unknow n PSA EQUIMOLAR JERSON 71731 PSA EQ 0.70 NG/ML 5 Unknown FREE T4 32047 FREE T4 1.32 NG/DL 08/15/2014 Unknown GFR CALC 0782060 GFR AA >60 ML/MIN 12/14/2013 Unknown GFR CALC 3544537 GFR NON-AA 58.0L ML/MIN 12/14/2013 Unkno wn COMPLETE BLOOD COUNT 7074403 WBC 8.7 10e9/L 12/15/19 14 Unknown COMPLETE BLOOD COUNT 7480173 RBC 4.32 10e12/L 2013 Unknown COMPLETE BLOOD COUNT 9133528 HGB 13.5 g/dL 4 Unknown COMPLETE BLOOD COUNT 0657902 HCT DET 40.6 % 4 Unknown COMPLETE BLOOD COUNT 5002381 MCV 94.0 fL 4 Unknown COMPLETE BLOOD COUNT 0904803 MCH 31.3 pg 4 Unknown COMPLETE BLOOD COUNT 9261951 MCHC 33.3 g/dL 4 Unknown COMPLETE BLOOD COUNT 6099449 PLT 205 10e9/L 12/15/19 14 Unknown COMPLETE BLOOD COUNT 2388006 MPV 11.7 fL 4 Unknown COMPLETE BLOOD COUNT 1981413 SAMIR % 62.5 % 4 Unknown COMPLETE BLOOD COUNT 0539610 LY % 26.9 % 4 Unknown COMPLETE BLOOD COUNT 2615309 MON % 8.8 % 4 Unknown COMPLETE BLOOD COUNT 0365504 EOS % 1.7 % 4 Unknown COMPLETE BLOOD COUNT 1890561 BASO % 0.1 % 4 Unknown COMPLETE BLOOD COUNT 6267585 RDW 13.4 % 4 Unknown COMPLETE BLOOD COUNT 9912779 ABS SAMIR 5.44 10e9/L 014 Unknown COMPLETE BLOOD COUNT [id number] ABS LYMPH 2.34 10e9/L 014 Unknown COMPLETE BLOOD COUNT [id number] ABS MONO 0.77 10e9/L 014 Unknown COMPLETE BLOOD COUNT [id number] ABS EOS 0.15 10e9/L 014 Unknown COMPLETE BLOOD COUNT [id number] ABS BASO 0.01 10e9/L 014 Unknown COMPLETE BLOOD COUNT [id number] RDW-SD 44.7 fL 4 Unknown COMPREHENSIVE METABOLIC 96281 AST 14 U/L 2013 Unknown COMPREHENSIVE METABOLIC 53067 ALT 12 IU/L 2013 Unknown COMPREHENSIVE METABOLIC 72222 BUN 24 MG/DL 2013 Unknown COMPREHENSIVE METABOLIC 36355 ALBUMIN 4.5 GM/DL 2013 Unknown COMPREHENSIVE METABOLIC 27305 CHLORIDE 104 MMOL/L 12/14 Unknown COMPREHENSIVE METABOLIC 05642 BILI TOT 0.6 MG/DL 2013 Unknown COMPREHENSIVE METABOLIC 98557 ALK PHOS 82 U/L 2013 Unknown COMPREHENSIVE METABOLIC 87067 SODIUM 135 MMOL/L 12/14 Unknown COMPREHENSIVE METABOLIC 14355 CREATININE 1.25 MG/DL 12/05 Unknown COMPREHENSIVE METABOLIC 11173 CALCIUM 9.8 MG/DL 2013 Unknown COMPREHENSIVE METABOLIC 57845 POTASSIUM 4.7 MMOL/L 12/14 Unknown COMPREHENSIVE METABOLIC 75028 PROT TOT 6.7 GM/DL 2013 Unknown COMPREHENSIVE METABOLIC 49566 Glucose 126 MG/DL 2013 Unknown COMPREHENSIVE METABOLIC 16755 BICARB 27 MMOL/L 2013 Unknown COMPREHENSIVE METABOLIC 56922 ANION GAP 4 MEQ/L 2013 Unknown THYROID STIMULATING HORMONE 34662 TSH 3.281 uIU/ML 12/14/2013 Unknown FREE T4 67175 FREE T4 1.28 NG/DL 12/14/2013 Unknown LIPID GROUP 15963 HDL TEST 36 MG/DL 12/14/2013 Unknown LIPID GROUP 00612 TRIG 253 MG/DL 12/14/2013 Unknown LIPID GROUP 59828 TEST LDL 56 MG/DL 12/14/2013 Unknown LIPID GROUP 72303 CHOL 143 MG/DL 12/14/2013 Unknown LIPID GROUP 51476 RCHOL/HDL 3.97 RATIO 12/14/2013 Unknow n LIPID GROUP 74038 NON-HDL CH 107 MG/DL 12/14/2013 Unknow n GLYCOSYLATED HEMOGLOBIN TEST 44335 A1C HPLC 43295-4 6.1 % 0 12/14/2013 Unknown GLYCOSYLATED HEMOGLOBIN TEST 23956 A1C HPLC 23712-8 6.0 % 0 06/08/2013 Unknown LIPID GROUP 70223 HDL TEST 39 MG/DL 06/08/2013 Unknown LIPID GROUP 88012 TRIG 166 MG/DL 06/08/2013 Unknown LIPID GROUP 68303 TEST LDL 86 MG/DL 06/08/2013 Unknown LIPID GROUP 66662 CHOL 158 MG/DL 06/08/2013 Unknown LIPID GROUP 91079 RCHOL/HDL 4.05 RATIO 06/08/2013 Unknow n COMPREHENSIVE METABOLIC 68102 AST 17 U/L 2013 Unknown COMPREHENSIVE METABOLIC 85406 ALT 25 IU/L 2013 Unknown COMPREHENSIVE METABOLIC 41427 BUN 18 MG/DL 2013 Unknown COMPREHENSIVE METABOLIC 17309 ALBUMIN 4.5 GM/DL 2013 Unknown COMPREHENSIVE METABOLIC 79202 CHLORIDE 103 MMOL/L 06/08 Unknown COMPREHENSIVE METABOLIC 35846 BILI TOT 0.4 MG/DL 2013 Unknown COMPREHENSIVE METABOLIC 98340 ALK PHOS 72 U/L 2013 Unknown COMPREHENSIVE METABOLIC 54830 SODIUM 137 MMOL/L 06/08 Unknown COMPREHENSIVE METABOLIC 79223 CREATININE 1.07 MG/DL 08/2013 Unknown COMPREHENSIVE METABOLIC 84206 CALCIUM 9.7 MG/DL 2013 Unknown COMPREHENSIVE METABOLIC 02969 POTASSIUM 4.7 MMOL/L 06/08 Unknown COMPREHENSIVE METABOLIC 65297 PROT TOT 6.6 GM/DL 2013 Unknown COMPREHENSIVE METABOLIC 27162 Glucose 130 MG/DL 2013 Unknown COMPREHENSIVE METABOLIC 70436 BICARB 25 MMOL/L 2013 Unknown COMPREHENSIVE METABOLIC 26048 ANION GAP 9 MEQ/L 2013 Unknown FREE T4 80689 FREE T4 1.29 NG/DL 06/08/2013 Unknown THYROID STIMULATING HORMONE 51679 TSH 2.445 uIU/ML 06/08/2013 Unknown GFR CALC GFR AA >60 ML/MIN 06/08/2013 Unknown GFR CALC GFR NON-AA >60 ML/MIN 06/08/2013 Unknown COMPLETE BLOOD COUNT [id number] WBC 8.2 10e9/L 06/09/19 14 Unknown COMPLETE BLOOD COUNT [id number] RBC 4.63 10e12/L 2013 Unknown COMPLETE BLOOD COUNT [id number] HGB 14.1 g/dL 4 Unknown COMPLETE BLOOD COUNT [id number] HCT DET 42.6 % 4 Unknown COMPLETE BLOOD COUNT [id number] MCV 92.0 fL 4 Unknown COMPLETE BLOOD COUNT [id number] MCH 30.5 pg 4 Unknown COMPLETE BLOOD COUNT 0528603 MCHC 33.1 g/dL 4 Unknown COMPLETE BLOOD COUNT [id number] PLT 222 10e9/L 06/09/19 14 Unknown COMPLETE BLOOD COUNT [id number] MPV 10.8 fL 4 Unknown COMPLETE BLOOD COUNT 5091617 SAMIR % 60.8 % 4 Unknown COMPLETE BLOOD COUNT [id number] LY % 29.2 % 4 Unknown COMPLETE BLOOD COUNT 1936409 MON % 7.6 % 4 Unknown COMPLETE BLOOD COUNT [id number] EOS % 2.3 % 4 Unknown COMPLETE BLOOD COUNT [id number] BASO % 0.1 % 4 Unknown COMPLETE BLOOD COUNT [id number] RDW 13.7 % 4 Unknown COMPLETE BLOOD COUNT [id number] ABS SAMIR 4.99 10e9/L 014 Unknown COMPLETE BLOOD COUNT [id number] ABS LYMPH 2.39 10e9/L 014 Unknown COMPLETE BLOOD COUNT [id number] ABS MONO 0.62 10e9/L 014 Unknown COMPLETE BLOOD COUNT [id number] ABS EOS 0.19 10e9/L 014 Unknown COMPLETE BLOOD COUNT [id number] ABS BASO 0.01 10e9/L 014 Unknown COMPLETE BLOOD COUNT [id number] RDW-SD 45.2 fL 4 Unknown LIPID GROUP 32070 HDL TEST 40 MG/DL 11/11/2012 Unknown LIPID GROUP 62471 TRIG 153 MG/DL 11/11/2012 Unknown LIPID GROUP 99065 TEST LDL 71 MG/DL 11/11/2012 Unknown LIPID GROUP 27162 CHOL 142 MG/DL 11/11/2012 Unknown LIPID GROUP 80459 RCHOL/HDL 3.55 RATIO 11/11/2012 Unknow n GFR CALC 5679717 GFR AA >60 ML/MIN 11/11/2012 Unknown GFR CALC 7299585 GFR NON-AA 57.0L ML/MIN 11/11/2012 Unkno wn HEMOGLOBIN A1C (GLYCOSYLATED) 3920772 A1C HPLC 33033-3 5.9 % 11/11/2012 Unknown THYROID STIMULATING HORMONE 81016 TSH 2.439 uIU/ML 11/11/2012 Unknown COMPLETE BLOOD COUNT [id number] WBC 8.5 10e9/L 11/12/19 13 Unknown COMPLETE BLOOD COUNT [id number] RBC 4.42 10e12/L 2012 Unknown COMPLETE BLOOD COUNT [id number] HGB 13.7 g/dL 3 Unknown COMPLETE BLOOD COUNT [id number] HCT DET 41.3 % 3 Unknown COMPLETE BLOOD COUNT 9149206 MCV 93.4 fL 3 Unknown COMPLETE BLOOD COUNT [id number] MCH 31.0 pg 3 Unknown COMPLETE BLOOD COUNT [id number] MCHC 33.2 g/dL 3 Unknown COMPLETE BLOOD COUNT [id number] PLT 220 10e9/L 11/12/19 13 Unknown COMPLETE BLOOD COUNT [id number] MPV 10.8 fL 3 Unknown COMPLETE BLOOD COUNT [id number] SAMIR % 60.4 % 3 Unknown COMPLETE BLOOD COUNT 8354054 LY % 28.7 % 3 Unknown COMPLETE BLOOD COUNT [id number] MON % 8.0 % 3 Unknown COMPLETE BLOOD COUNT [id number] EOS % 2.8 % 3 Unknown COMPLETE BLOOD COUNT [id number] BASO % 0.1 % 3 Unknown COMPLETE BLOOD COUNT 7631815 RDW 13.7 % 3 Unknown COMPLETE BLOOD COUNT [id number] ABS SAMIR 5.13 10e9/L 013 Unknown COMPLETE BLOOD COUNT [id number] ABS LYMPH 2.44 10e9/L 013 Unknown COMPLETE BLOOD COUNT [id number] ABS MONO 0.68 10e9/L 013 Unknown COMPLETE BLOOD COUNT [id number] ABS EOS 0.24 10e9/L 013 Unknown COMPLETE BLOOD COUNT [id number] ABS BASO 0.01 10e9/L 013 Unknown COMPLETE BLOOD COUNT [id number] RDW-SD 45.6 fL 3 Unknown COMPREHENSIVE METABOLIC 54456 AST 19 U/L 2012 Unknown COMPREHENSIVE METABOLIC 76172 ALT 28 IU/L 2012 Unknown COMPREHENSIVE METABOLIC 61123 BUN 31 MG/DL 2012 Unknown COMPREHENSIVE METABOLIC 75418 ALBUMIN 4.7 GM/DL 2012 Unknown COMPREHENSIVE METABOLIC 55000 CHLORIDE 106 MMOL/L 11/11 Unknown COMPREHENSIVE METABOLIC 36146 BILI TOT 0.5 MG/DL 2012 Unknown COMPREHENSIVE METABOLIC 01660 ALK PHOS 64 U/L 2012 Unknown COMPREHENSIVE METABOLIC 43907 SODIUM 136 MMOL/L 11/11 Unknown COMPREHENSIVE METABOLIC 00153 CREATININE 1.27 MG/DL 11/2012 Unknown COMPREHENSIVE METABOLIC 40405 CALCIUM 9.4 MG/DL 2012 Unknown COMPREHENSIVE METABOLIC 50227 POTASSIUM 4.9 MMOL/L 11/11 Unknown COMPREHENSIVE METABOLIC 21274 PROT TOT 6.7 GM/DL 2012 Unknown COMPREHENSIVE METABOLIC 45085 Glucose 108 MG/DL 2012 Unknown COMPREHENSIVE METABOLIC 18120 BICARB 21 MMOL/L 2012 Unknown COMPREHENSIVE METABOLIC 50597 ANION GAP 9 MEQ/L 2012 Unknown THYROID STIMULATING HORMONE 59590 TSH 2.572 uIU/ML 05/04/2012 Unknown COMPLETE BLOOD COUNT [id number] WBC 9.3 10e9/L 05/04/19 13 Unknown COMPLETE BLOOD COUNT [id number] RBC 4.43 10e12/L 2012 Unknown COMPLETE BLOOD COUNT 8908528 HGB 14.2 g/dL 3 Unknown COMPLETE BLOOD COUNT [id number] HCT DET 41.1 % 3 Unknown COMPLETE BLOOD COUNT 1374055 MCV 92.8 fL 3 Unknown COMPLETE BLOOD COUNT 9288841 MCH 32.1 pg 3 Unknown COMPLETE BLOOD COUNT 1362254 MCHC 34.5 g/dL 3 Unknown COMPLETE BLOOD COUNT 9774625 PLT 193 10e9/L 05/04/19 13 Unknown COMPLETE BLOOD COUNT [id number] MPV 10.8 fL 3 Unknown COMPLETE BLOOD COUNT [id number] SAMIR % 63.0 % 3 Unknown COMPLETE BLOOD COUNT [id number] LY % 25.3 % 3 Unknown COMPLETE BLOOD COUNT 1137169 MON % 9.1 % 3 Unknown COMPLETE BLOOD COUNT [id number] EOS % 2.5 % 3 Unknown COMPLETE BLOOD COUNT [id number] BASO % 0.1 % 3 Unknown COMPLETE BLOOD COUNT 6627857 RDW 12.6 % 3 Unknown COMPLETE BLOOD COUNT [id number] ABS SAMIR 5.86 10e9/L 013 Unknown COMPLETE BLOOD COUNT [id number] ABS LYMPH 2.35 10e9/L 013 Unknown COMPLETE BLOOD COUNT [id number] ABS MONO 0.85 10e9/L 013 Unknown COMPLETE BLOOD COUNT [id number] ABS EOS 0.23 10e9/L 013 Unknown COMPLETE BLOOD COUNT [id number] ABS BASO 0.01 10e9/L 013 Unknown COMPLETE BLOOD COUNT [id number] RDW-SD 41.2 fL 3 Unknown LIPID GROUP 24586 HDL TEST 35 MG/DL 05/04/2012 Unknown LIPID GROUP 02917 TRIG 236 MG/DL 05/04/2012 Unknown LIPID GROUP 25436 TEST LDL 64 MG/DL 05/04/2012 Unknown LIPID GROUP 13214 CHOL 146 MG/DL 05/04/2012 Unknown LIPID GROUP 89640 RCHOL/HDL 4.17 RATIO 05/04/2012 Unknow n COMPREHENSIVE METABOLIC 67851 AST 23 U/L 2012 Unknown COMPREHENSIVE METABOLIC 46415 ALT 33 IU/L 2012 Unknown COMPREHENSIVE METABOLIC 03585 BUN 16 MG/DL 2012 Unknown COMPREHENSIVE METABOLIC 18876 ALBUMIN 4.8 GM/DL 2012 Unknown COMPREHENSIVE METABOLIC 20103 CHLORIDE 104 MMOL/L 05/04 Unknown COMPREHENSIVE METABOLIC 19909 BILI TOT 0.5 MG/DL 2012 Unknown COMPREHENSIVE METABOLIC 87559 ALK PHOS 70 U/L 2012 Unknown COMPREHENSIVE METABOLIC 14119 SODIUM 138 MMOL/L 05/04 Unknown COMPREHENSIVE METABOLIC 39001 CREATININE 1.08 MG/DL 04/07 Unknown COMPREHENSIVE METABOLIC 24739 CALCIUM 9.7 MG/DL 2012 Unknown COMPREHENSIVE METABOLIC 42103 POTASSIUM 4.4 MMOL/L 05/04 Unknown COMPREHENSIVE METABOLIC 70634 PROT TOT 6.8 GM/DL 2012 Unknown COMPREHENSIVE METABOLIC 70952 Glucose 114 MG/DL 2012 Unknown COMPREHENSIVE METABOLIC 30465 BICARB 27 MMOL/L 2012 Unknown COMPREHENSIVE METABOLIC 90134 ANION GAP 7 MEQ/L 2012 Unknown FREE T4 09415 FREE T4 1.11 NG/DL 05/04/2012 Unknown GFR CALC 0642900 GFR AA >60 ML/MIN 05/04/2012 Unknown GFR CALC 8525435 GFR NON-AA >60 ML/MIN 05/04/2012 Unknown GLYCOSYLATED HEMOGLOBIN TEST 56187 A1C HPLC 44037-5 5.8 % 0 10/29/2011 Unknown COMPREHENSIVE METABOLIC 55916 AST 17 U/L 2011 Unknown COMPREHENSIVE METABOLIC 39784 ALT 21 IU/L 2011 Unknown COMPREHENSIVE METABOLIC 73134 BUN 17 MG/DL 2011 Unknown COMPREHENSIVE METABOLIC 60891 ALBUMIN 4.8 GM/DL 2011 Unknown COMPREHENSIVE METABOLIC 67883 CHLORIDE 106 MMOL/L 10/28 Unknown COMPREHENSIVE METABOLIC 76258 BILI TOT 0.6 MG/DL 2011 Unknown COMPREHENSIVE METABOLIC 27227 ALK PHOS 57 U/L 2011 Unknown COMPREHENSIVE METABOLIC 28024 SODIUM 139 MMOL/L 10/28 Unknown COMPREHENSIVE METABOLIC 87543 CREATININE 1.08 MG/DL 10/05 Unknown COMPREHENSIVE METABOLIC 73264 CALCIUM 9.6 MG/DL 2011 Unknown COMPREHENSIVE METABOLIC 44298 POTASSIUM 4.4 MMOL/L 10/28 Unknown COMPREHENSIVE METABOLIC 99080 PROT TOT 6.9 GM/DL 2011 Unknown COMPREHENSIVE METABOLIC 49552 Glucose 104 MG/DL 2011 Unknown COMPREHENSIVE METABOLIC 14088 BICARB 25 MMOL/L 2011 Unknown COMPREHENSIVE METABOLIC 26811 ANION GAP 8 MEQ/L 2011 Unknown LIPID GROUP 50576 HDL TEST 39 MG/DL 10/29/2011 Unknown LIPID GROUP 76057 TRIG 176 MG/DL 10/29/2011 Unknown LIPID GROUP 62501 TEST LDL 70 MG/DL 10/29/2011 Unknown LIPID GROUP 52745 CHOL 144 MG/DL 10/29/2011 Unknown LIPID GROUP 34241 RCHOL/HDL 3.69 RATIO 10/29/2011 Unknow n GFR CALC 9374831 GFR AA >60 ML/MIN 10/29/2011 Unknown GFR CALC 4874567 GFR NON-AA >60 ML/MIN 10/29/2011 Unknown GFR CALC 5019003 GFR AA >60 ML/MIN 03/14/2011 Unknown GFR CALC 3358072 GFR NON-AA >60 ML/MIN 03/14/2011 Unknown GLYCOSYLATED HEMOGLOBIN TEST 58774 A1C HPLC 38519-0 5.7 % 1 05/15/2010 Unknown COMPREHENSIVE METABOLIC 36236 AST 18 U/L 2010 Unknown COMPREHENSIVE METABOLIC 76611 ALT 25 IU/L 2010 Unknown COMPREHENSIVE METABOLIC 77570 BUN 15 MG/DL 2010 Unknown COMPREHENSIVE METABOLIC 50943 ALBUMIN 4.6 GM/DL 2010 Unknown COMPREHENSIVE METABOLIC 72553 CHLORIDE 107 MMOL/L 03/14 Unknown COMPREHENSIVE METABOLIC 68979 BILI TOT 0.6 MG/DL 2010 Unknown COMPREHENSIVE METABOLIC 15799 ALK PHOS 54 U/L 2010 Unknown COMPREHENSIVE METABOLIC 44633 SODIUM 140 MMOL/L 03/14 Unknown COMPREHENSIVE METABOLIC 64019 CREATININE 1.02 MG/DL 12/2010 Unknown COMPREHENSIVE METABOLIC 07769 CALCIUM 9.4 MG/DL 2010 Unknown COMPREHENSIVE METABOLIC 63217 POTASSIUM 4.6 MMOL/L 03/14 Unknown COMPREHENSIVE METABOLIC 79989 PROT TOT 7.0 GM/DL 2010 Unknown COMPREHENSIVE METABOLIC 08741 Glucose 107 MG/DL 2010 Unknown COMPREHENSIVE METABOLIC 22012 BICARB 28 MMOL/L 2010 Unknown COMPREHENSIVE METABOLIC 50047 ANION GAP 5 MEQ/L 2010 Unknown LIPID GROUP 04371 HDL TEST 39 MG/DL 03/14/2011 Unknown LIPID GROUP 87490 TRIG 157 MG/DL 03/14/2011 Unknown LIPID GROUP 30165 TEST LDL 66 MG/DL 03/14/2011 Unknown LIPID GROUP 63247 CHOL 136 MG/DL 03/14/2011 Unknown LIPID GROUP 70314 RCHOL/HDL 3.49 RATIO 03/14/2011 Unknow n GFR CALC 0544158 GFR AA >60 ML/MIN 11/11/2010 Unknown GFR CALC 0920585 GFR NON-AA >60 ML/MIN 11/11/2010 Unknown LIPID GROUP 63681 HDL TEST 39 MG/DL 11/11/2010 Unknown LIPID GROUP 20260 TRIG 212 MG/DL 11/11/2010 Unknown LIPID GROUP 79160 TEST LDL 67 MG/DL 11/11/2010 Unknown LIPID GROUP 04025 CHOL 148 MG/DL 11/11/2010 Unknown LIPID GROUP 74538 RCHOL/HDL 3.79 RATIO 11/11/2010 Unknow n COMPREHENSIVE METABOLIC 99121 AST 17 U/L 2010 Unknown COMPREHENSIVE METABOLIC 35822 ALT 21 IU/L 2010 Unknown COMPREHENSIVE METABOLIC 19732 BUN 16 MG/DL 2010 Unknown COMPREHENSIVE METABOLIC 00339 ALBUMIN 4.6 GM/DL 2010 Unknown COMPREHENSIVE METABOLIC 65091 CHLORIDE 106 MMOL/L 11/11 Unknown COMPREHENSIVE METABOLIC 78371 BILI TOT 0.5 MG/DL 2010 Unknown COMPREHENSIVE METABOLIC 54477 ALK PHOS 61 U/L 2010 Unknown COMPREHENSIVE METABOLIC 19688 SODIUM 139 MMOL/L 11/11 Unknown COMPREHENSIVE METABOLIC 58877 CREATININE 1.00 MG/DL 11/2010 Unknown COMPREHENSIVE METABOLIC 17147 CALCIUM 9.5 MG/DL 2010 Unknown COMPREHENSIVE METABOLIC 81761 POTASSIUM 4.5 MMOL/L 11/11 Unknown COMPREHENSIVE METABOLIC 35163 PROT TOT 6.9 GM/DL 2010 Unknown COMPREHENSIVE METABOLIC 64888 Glucose 111 MG/DL 2010 Unknown COMPREHENSIVE METABOLIC 12091 BICARB 26 MMOL/L 2010 Unknown COMPREHENSIVE METABOLIC 67460 ANION GAP 7 MEQ/L 2010 Unknown HEMOGLOBIN A1C (GLYCOSYLATED) 78303 A1C HPLC 77445-1 5.6 % 07/24/2010 Unknown GFR CALC 8335173 GFR AA >60 ML/MIN 07/23/2010 Unknown GFR CALC 1203132 GFR NON-AA >60 ML/MIN 07/23/2010 Unknown COMPREHENSIVE METABOLIC 28587 AST 19 U/L 2010 Unknown COMPREHENSIVE METABOLIC 75583 ALT 33 IU/L 2010 Unknown COMPREHENSIVE METABOLIC 89538 BUN 14 MG/DL 2010 Unknown COMPREHENSIVE METABOLIC 03278 ALBUMIN 4.7 GM/DL 2010 Unknown COMPREHENSIVE METABOLIC 34393 CHLORIDE 107 MMOL/L 07/23 Unknown COMPREHENSIVE METABOLIC 71281 BILI TOT 0.4 MG/DL 2010 Unknown COMPREHENSIVE METABOLIC 08796 ALK PHOS 80 U/L 2010 Unknown COMPREHENSIVE METABOLIC 54608 SODIUM 141 MMOL/L 07/23 Unknown COMPREHENSIVE METABOLIC 46251 CREATININE 0.97 MG/DL 07/05 Unknown COMPREHENSIVE METABOLIC 69887 CALCIUM 9.5 MG/DL 2010 Unknown COMPREHENSIVE METABOLIC 83758 POTASSIUM 4.1 MMOL/L 07/23 Unknown COMPREHENSIVE METABOLIC 54907 PROT TOT 6.8 GM/DL 2010 Unknown COMPREHENSIVE METABOLIC 40202 Glucose 120 MG/DL 2010 Unknown COMPREHENSIVE METABOLIC 84579 BICARB 26 MMOL/L 2010 Unknown COMPREHENSIVE METABOLIC 35959 ANION GAP 8 MEQ/L 2010 Unknown LIPID GROUP 74296 HDL TEST 41 MG/DL 07/23/2010 Unknown LIPID GROUP 14426 TRIG 175 MG/DL 07/23/2010 Unknown LIPID GROUP 26943 TEST LDL 72 MG/DL 07/23/2010 Unknown LIPID GROUP 04185 CHOL 148 MG/DL 07/23/2010 Unknown LIPID GROUP 80993 RCHOL/HDL 3.61 RATIO 07/23/2010 Unknow n PSA FREE AND TOTAL 97286|87251 % FREE PSA FOOTNOTE % 011 Unknown PSA FREE AND TOTAL 84755|60980 XPSA TOTAL 0.83 NG/ML 011 Unknown PSA FREE AND TOTAL 52940|27033 XPSA FREE 0.13 NG/ML 04/26/19 11 Unknown VITAMIN D TOTAL (25 HYDROXY) 11658 VIT D TOTL 26 NG/ML 04/22/2010 Unknown TESTOSTERONE TOTAL 11917 TESTOS TO 387 NG/DL 04/19/2010 Unknown GFR CALC 1019880 GFR AA >60 ML/MIN 04/19/2010 Unknown GFR CALC 5356020 GFR NON-AA >60 ML/MIN 04/19/2010 Unknown COMPLETE BLOOD COUNT 06396 WBC 7.0 10e9/L 04/19/19 11 Unknown COMPLETE BLOOD COUNT 58675 RBC 5.07 10e12/L 2010 Unknown COMPLETE BLOOD COUNT 67232 HGB 15.6 g/dL 1 Unknown COMPLETE BLOOD COUNT 47287 HCT DET 46.2 % 1 Unknown COMPLETE BLOOD COUNT 54406 MCV 91.1 fL 1 Unknown COMPLETE BLOOD COUNT 72335 MCH 30.8 pg 1 Unknown COMPLETE BLOOD COUNT 23173 MCHC 33.8 g/dL 1 Unknown COMPLETE BLOOD COUNT 41754 PLT 205 10e9/L 04/19/19 11 Unknown COMPLETE BLOOD COUNT 63337 MPV 11.1 fL 1 Unknown COMPLETE BLOOD COUNT 60155 SAMIR % 62.4 % 1 Unknown COMPLETE BLOOD COUNT 61520 LY % 28.5 % 1 Unknown COMPLETE BLOOD COUNT 34510 MON % 6.9 % 1 Unknown COMPLETE BLOOD COUNT 43328 EOS % 2.1 % 1 Unknown COMPLETE BLOOD COUNT 75329 BASO % 0.1 % 1 Unknown COMPLETE BLOOD COUNT 03433 RDW 13.4 % 1 Unknown COMPLETE BLOOD COUNT 02217 ABS SAMIR 4.37 10e9/L 011 Unknown COMPLETE BLOOD COUNT 12674 ABS LYMPH 2.00 10e9/L 011 Unknown COMPLETE BLOOD COUNT 26737 ABS MONO 0.48 10e9/L 011 Unknown COMPLETE BLOOD COUNT 74574 ABS EOS 0.15 10e9/L 011 Unknown COMPLETE BLOOD COUNT 69215 ABS BASO 0.01 10e9/L 011 Unknown COMPLETE BLOOD COUNT 05031 RDW-SD 43.8 fL 1 Unknown LIPID GROUP 69265 HDL TEST 39 MG/DL 04/19/2010 Unknown LIPID GROUP 68384 TRIG 244 MG/DL 04/19/2010 Unknown LIPID GROUP 01224 TEST LDL 168 MG/DL 04/19/2010 Unknown LIPID GROUP 30000 CHOL 256 MG/DL 04/19/2010 Unknown LIPID GROUP 63320 RCHOL/HDL 6.56 RATIO 04/19/2010 Unknow n COMPREHENSIVE METABOLIC 73747 AST 28 U/L 2010 Unknown COMPREHENSIVE METABOLIC 80578 ALT 46 IU/L 2010 Unknown COMPREHENSIVE METABOLIC 67619 BUN 14 MG/DL 2010 Unknown COMPREHENSIVE METABOLIC 28607 ALBUMIN 4.9 GM/DL 2010 Unknown COMPREHENSIVE METABOLIC 35563 CHLORIDE 104 MMOL/L 04/19 Unknown COMPREHENSIVE METABOLIC 50986 BILI TOT 0.8 MG/DL 2010 Unknown COMPREHENSIVE METABOLIC 53500 ALK PHOS 71 U/L 2010 Unknown COMPREHENSIVE METABOLIC 68931 SODIUM 139 MMOL/L 04/19 Unknown COMPREHENSIVE METABOLIC 68034 CREATININE 1.06 MG/DL 04/06 Unknown COMPREHENSIVE METABOLIC 42882 CALCIUM 9.9 MG/DL 2010 Unknown COMPREHENSIVE METABOLIC 89673 POTASSIUM 4.3 MMOL/L 04/19 Unknown COMPREHENSIVE METABOLIC 68868 PROT TOT 7.2 GM/DL 2010 Unknown COMPREHENSIVE METABOLIC 03722 Glucose 99 MG/DL 2010 Unknown COMPREHENSIVE METABOLIC 14463 BICARB 28 MMOL/L 2010 Unknown COMPREHENSIVE METABOLIC 24955 ANION GAP 7 MEQ/L 2010 Unknown FREE T4 59870 FREE T4 1.26 NG/DL 04/19/2010 Unknown Procedures Procedure Codes Date ROUTINE VENIPUNCTURE CPT-4: 43816 08/24/2019 COMPREHEN METABOLIC PANEL CPT-4: 60284 08/24/2019 A1C HPLC CPT-4: 17314 08/24/2019 ROUTINE VENIPUNCTURE CPT-4: 88883 05/24/2019 COMPREHEN METABOLIC PANEL CPT-4: 53767 05/24/2019 A1C HPLC CPT-4: 84453 05/24/2019 FLU VACC PRSV FREE INC ANTIG 65 AND OLDER CPT-4: 23941 01/26/2019 FLU VACC PRSV FREE INC ANTIG 65 AND OLDER CPT-4: 98771 01/26/2019 ADMIN INFLUENZA VIRUS VAC CPT-4: G0008 01/26/2019 ROUTINE VENIPUNCTURE CPT-4: 61709 01/26/2019 COMPREHEN METABOLIC PANEL CPT-4: 96750 01/26/2019 COMPLETE CBC W/AUTO DIFF WBC CPT-4: 53060 01/26/2019 LIPID PANEL CPT-4: 00497 01/26/2019 A1C HPLC CPT-4: 11156 01/26/2019 ROUTINE VENIPUNCTURE CPT-4: 37969 09/30/2018 METABOLIC PANEL TOTAL CA CPT-4: 24357 09/30/2018 URINALYSIS NONAUTO W/O SCOPE CPT-4: 85469 08/19/2018 URINE CULTURE/ COLONY COUNT CPT-4: 85206 08/19/2018 MICROALBUMIN QUANTITATIVE CPT-4: 70057 08/19/2018 ROUTINE VENIPUNCTURE CPT-4: 75257 08/16/2018 ASSAY THYROID STIM HORMONE CPT-4: 87187 08/16/2018 COMPREHEN METABOLIC PANEL CPT-4: 89112 08/16/2018 COMPLETE CBC W/AUTO DIFF WBC CPT-4: 52829 08/16/2018 LIPID PANEL CPT-4: 09057 08/16/2018 A1C HPLC CPT-4: 06188 08/16/2018 LIPID PANEL CPT-4: 72447 05/05/2018 COMPREHEN METABOLIC PANEL CPT-4: 77484 05/05/2018 ROUTINE VENIPUNCTURE CPT-4: 87632 05/05/2018 A1C HPLC CPT-4: 24848 05/05/2018 COMPLETE CBC W/AUTO DIFF WBC CPT-4: 01557 05/05/2018 ASSAY THYROID STIM HORMONE CPT-4: 45460 05/05/2018 MICROALBUMIN QUANTITATIVE CPT-4: 52273 01/19/2018 PRESCRIP TRANSMIT VIA ERX SY CPT-4: G8553 01/19/2018 ROUTINE VENIPUNCTURE CPT-4: 61019 01/13/2018 COMPREHEN METABOLIC PANEL CPT-4: 25794 01/13/2018 A1C HPLC CPT-4: 74040 01/13/2018 LIPID PANEL CPT-4: 71934 01/13/2018 ASSAY OF PSA TOTAL CPT-4: 33350 01/13/2018 ASSAY THYROID STIM HORMONE CPT-4: 28393 01/13/2018 ROUTINE VENIPUNCTURE CPT-4: 83616 10/06/2017 COMPREHEN METABOLIC PANEL CPT-4: 61126 10/06/2017 COMPLETE CBC W/AUTO DIFF WBC CPT-4: 40875 10/06/2017 LIPID PANEL CPT-4: 11508 10/06/2017 A1C HPLC CPT-4: 60720 10/06/2017 VITAMIN B-12 CPT-4: 17155 10/06/2017 DESTRUCT PREMALG LESION (Cryosurgery) CPT-4: 28066 DESTRUCT PREMALG LES 2-14 CPT-4: 47275 04/23/2017 PRESCRIP TRANSMIT VIA ERX SY CPT-4: G8553 03/11/2017 ROUTINE VENIPUNCTURE CPT-4: 50748 03/05/2017 ASSAY OF FREE THYROXINE CPT-4: 85078 03/05/2017 ASSAY THYROID STIM HORMONE CPT-4: 24369 03/05/2017 COMPREHEN METABOLIC PANEL CPT-4: 18884 03/05/2017 COMPLETE CBC W/AUTO DIFF WBC CPT-4: 94709 03/05/2017 LIPID PANEL CPT-4: 41125 03/05/2017 A1C HPLC CPT-4: 29945 03/05/2017 ROUTINE VENIPUNCTURE CPT-4: 10055 06/16/2016 ASSAY OF FREE THYROXINE CPT-4: 44150 06/16/2016 ASSAY THYROID STIM HORMONE CPT-4: 70583 06/16/2016 COMPREHEN METABOLIC PANEL CPT-4: 87375 06/16/2016 COMPLETE CBC W/AUTO DIFF WBC CPT-4: 07651 06/16/2016 LIPID PANEL CPT-4: 26147 06/16/2016 A1C HPLC CPT-4: 61539 06/16/2016 ROUTINE VENIPUNCTURE CPT-4: 94414 03/06/2016 ASSAY OF FREE THYROXINE CPT-4: 93050 03/06/2016 ASSAY THYROID STIM HORMONE CPT-4: 44275 03/06/2016 COMPREHEN METABOLIC PANEL CPT-4: 19726 03/06/2016 COMPLETE CBC W/AUTO DIFF WBC CPT-4: 36009 03/06/2016 LIPID PANEL CPT-4: 31356 03/06/2016 A1C HPLC CPT-4: 04661 03/06/2016 PRESCRIP TRANSMIT VIA ERX SY CPT-4: G8553 09/10/2015 PNEUMOCOCCAL VACC 23 ROSANNE IM CPT-4: 62206 09/06/2015 ADMIN PNEUMOCOCCAL VACCINE CPT-4: G0009 09/06/2015 ROUTINE VENIPUNCTURE CPT-4: 11679 08/31/2015 COMPREHEN METABOLIC PANEL CPT-4: 84001 08/31/2015 COMPLETE CBC W/AUTO DIFF WBC CPT-4: 22222 08/31/2015 LIPID PANEL CPT-4: 11693 08/31/2015 ASSAY OF PSA TOTAL CPT-4: 55667 08/31/2015 A1C HPLC CPT-4: 65742 08/31/2015 ASSAY OF FREE THYROXINE CPT-4: 15484 08/31/2015 ASSAY THYROID STIM HORMONE CPT-4: 71414 08/31/2015 PRESCRIP TRANSMIT VIA ERX SY CPT-4: G8553 06/29/2015 FLU VACC PRSV FREE INC ANTIG 65 AND OLDER CPT-4: 63912 01/17/2015 PNEUMOCOCCAL VACC 13 ROSANNE IM CPT-4: 17981 01/17/2015 ADMIN INFLUENZA VIRUS VAC CPT-4: G0008 01/17/2015 ADMIN PNEUMOCOCCAL VACCINE CPT-4: G0009 01/17/2015 DESTRUCT PREMALG LESION (Cryosurgery) CPT-4: 69503 PRESCRIP TRANSMIT VIA ERX SY CPT-4: G8553 01/17/2015 ROUTINE VENIPUNCTURE CPT-4: 53201 01/12/2015 COMPREHEN METABOLIC PANEL CPT-4: 57055 01/12/2015 COMPLETE CBC W/AUTO DIFF WBC CPT-4: 32320 01/12/2015 LIPID PANEL CPT-4: 59869 01/12/2015 A1C HPLC CPT-4: 61788 01/12/2015 DESTRUCT PREMALG LESION (Cryosurgery) CPT-4: 68130 ROUTINE VENIPUNCTURE CPT-4: 69326 08/15/2014 COMPREHEN METABOLIC PANEL CPT-4: 66220 08/15/2014 COMPLETE CBC W/AUTO DIFF WBC CPT-4: 99787 08/15/2014 LIPID PANEL CPT-4: 77788 08/15/2014 A1C HPLC CPT-4: 95795 08/15/2014 ASSAY OF PSA TOTAL CPT-4: 89968 08/15/2014 ASSAY OF FREE THYROXINE CPT-4: 87387 08/15/2014 ASSAY THYROID STIM HORMONE CPT-4: 32804 08/15/2014 ROUTINE VENIPUNCTURE CPT-4: 78599 12/14/2013 ASSAY OF FREE THYROXINE CPT-4: 83606 12/14/2013 ASSAY THYROID STIM HORMONE CPT-4: 91906 12/14/2013 COMPREHEN METABOLIC PANEL CPT-4: 27702 12/14/2013 COMPLETE CBC W/AUTO DIFF WBC CPT-4: 13107 12/14/2013 LIPID PANEL CPT-4: 76643 12/14/2013 A1C HPLC CPT-4: 66770 12/14/2013 ROUTINE VENIPUNCTURE CPT-4: 88313 06/08/2013 ASSAY OF FREE THYROXINE CPT-4: 99892 06/08/2013 ASSAY THYROID STIM HORMONE CPT-4: 27728 06/08/2013 COMPREHEN METABOLIC PANEL CPT-4: 14173 06/08/2013 COMPLETE CBC W/AUTO DIFF WBC CPT-4: 33145 06/08/2013 LIPID PANEL CPT-4: 19415 06/08/2013 A1C HPLC CPT-4: 53938 06/08/2013 ROUTINE VENIPUNCTURE CPT-4: 04008 11/11/2012 COMPREHEN METABOLIC PANEL CPT-4: 54016 11/11/2012 COMPLETE CBC W/AUTO DIFF WBC CPT-4: 05790 11/11/2012 LIPID PANEL CPT-4: 59064 11/11/2012 A1C GLYCOSYLATED HEMOGLOBIN TEST CPT-4: 12407 013 ASSAY THYROID STIM HORMONE CPT-4: 72842 11/11/2012 ROUTINE VENIPUNCTURE CPT-4: 20824 05/04/2012 ASSAY OF FREE THYROXINE CPT-4: 60481 05/04/2012 ASSAY THYROID STIM HORMONE CPT-4: 32732 05/04/2012 COMPREHEN METABOLIC PANEL CPT-4: 89849 05/04/2012 COMPLETE CBC W/AUTO DIFF WBC CPT-4: 01082 05/04/2012 LIPID PANEL CPT-4: 84062 05/04/2012 DESTRUCT PREMALG LESION (Cryosurgery) CPT-4: 79472 DESTRUCT PREMALG LES 2-14 CPT-4: 73038 03/02/2012 ROUTINE VENIPUNCTURE CPT-4: 67812 10/29/2011 COMPREHEN METABOLIC PANEL CPT-4: 81537 10/29/2011 LIPID PANEL CPT-4: 78684 10/29/2011 A1C GLYCOSYLATED HEMOGLOBIN TEST CPT-4: 71975 012 ROUTINE VENIPUNCTURE CPT-4: 52719 07/29/2011 COMPREHEN METABOLIC PANEL CPT-4: 90719 07/29/2011 LIPID PANEL CPT-4: 33188 07/29/2011 A1C GLYCOSYLATED HEMOGLOBIN TEST CPT-4: 72519 012 ROUTINE VENIPUNCTURE CPT-4: 42581 03/14/2011 COMPREHEN METABOLIC PANEL CPT-4: 76561 03/14/2011 LIPID PANEL CPT-4: 74802 03/14/2011 A1C GLYCOSYLATED HEMOGLOBIN TEST CPT-4: 41650 011 ROUTINE VENIPUNCTURE CPT-4: 64341 11/11/2010 COMPREHEN METABOLIC PANEL CPT-4: 33803 11/11/2010 LIPID PANEL CPT-4: 05423 11/11/2010 URINE CULTURE/ COLONY COUNT CPT-4: 58428 11/11/2010 URINALYSIS NONAUTO W/O SCOPE CPT-4: 30167 10/29/2010 URINE CULTURE/ COLONY COUNT CPT-4: 14533 10/29/2010 LIPID PANEL CPT-4: 14920 07/23/2010 COMPREHEN METABOLIC PANEL CPT-4: 22163 07/23/2010 ROUTINE VENIPUNCTURE CPT-4: 34657 07/23/2010 ROUTINE VENIPUNCTURE CPT-4: 08570 04/26/2010 PSA FREE AND TOTAL CPT-4: 42267|96951 04/26/2010 OCCULT BLOOD FECES CPT-4: 52312 04/24/2010 ROUTINE VENIPUNCTURE CPT-4: 72176 04/19/2010 COMPLETE CBC W/AUTO DIFF WBC CPT-4: 72358 04/19/2010 COMPREHEN METABOLIC PANEL CPT-4: 90182 04/19/2010 LIPID PANEL CPT-4: 70050 04/19/2010 TESTOSTERONE TOTAL - MALE CPT-4: 91675 04/19/2010 ASSAY THYROID STIM HORMONE CPT-4: 38270 04/19/2010 ASSAY OF FREE THYROXINE CPT-4: 37794 04/19/2010 VITAMIN D TOTAL (25 HYDROXY) CPT-4: 49291 04/19/2010 Vital Signs Date Vital 06/02/2019 Blood Pressure 1: 132/80 Code: 8480-6 BMI: 29.5 Code: 89039-2 Heart Rate 1: 64 bpm Height: 6'3" [...] 1: 112/70 Code: 8480-6 BMI: 28.9 Code: 98576-1 Heart Rate 1: 60 bpm Height: 6'3" Respiratory Rate: 20 bpm SpO2: 95% Tempera ture: 36.6 (C) / 97.9 (F) Weight: 231 lbs 01/19/2018 Blood Pressure 1: 150/82 Code: 8480-6 Heart Rate 1: 63 bpm Respiratory Rate: 18 bpm SpO2: 98% Temperature: 36.0 (C) / 96.8 (F) We ight: 225 lbs 10/15/2017 Blood Pressure 1: 126/82 Code: 8480-6 BMI: 27.9 Code: 69072-4 Heart Rate 1: 64 bpm Height: 6'3" Respiratory Rate: 20 bpm SpO2: 96% Tempera ture: 36.7 (C) / 98.1 (F) Weight: 223 lbs 04/23/2017 Blood Pressure 1: 136/74 Code: 8480-6 BMI: 28.7 Code: 25537-0 Heart Rate 1: 76 bpm Height: 6'3" Respiratory Rate: 20 bpm Temperature: 37 .0 (C) / 98.6 (F) Weight: 230 lbs 03/11/2017 Blood Pressure 1: 136/66 Code: 8480-6 BMI: 28.6 Code: 68096-2 Heart Rate 1: 60 bpm Height: 6'3" Respiratory Rate: 20 bpm Temperature: 36 .7 (C) / 98.1 (F) Weight: 229 lbs 07/09/2016 Blood Pressure 1: 132/80 Code: 8480-6 BMI: 27.7 Code: 83999-8 Heart Rate 1: 64 bpm Height: 6'3" Respiratory Rate: 20 bpm SpO2: 96% Tempera ture: 36.9 (C) / 98.4 (F) Weight: 222 lbs 03/10/2016 Blood Pressure 1: 134/78 Code: 8480-6 BMI: 28.5 Code: 81476-7 Heart Rate 1: 60 bpm Height: 6'3" Respiratory Rate: 20 bpm SpO2: 96% Tempera ture: 36.7 (C) / 98.1 (F) Weight: 228 lbs 09/12/2015 Blood Pressure 1: 136/78 Code: 8480-6 Heart Rate 1: 84 bpm Height: Respiratory Rate: 24 bpm SpO2: 97% Temperature: 36.4 (C) / 97.6 (F) We ight: 09/10/2015 Blood Pressure 1: 124/76 Code: 8480-6 BMI: 28.5 Code: 50637-6 Heart Rate 1: 76 bpm Height: 6'3" Respiratory Rate: 24 bpm SpO2: 97% Tempera ture: 36.4 (C) / 97.6 (F) Weight: 228 lbs 09/06/2015 Blood Pressure 1: 124 Code: 8480-6 BMI: 29.0 Code: 56269-9 Heart Rate 1: 66 bpm Height: 6'3" Respiratory Rate: 20 bpm SpO2: 97% Tempera ture: 36.4 (C) / 97.6 (F) Weight: 232 lbs 06/29/2015 Blood Pressure 1: 124 Code: 8480-6 Heart Rate 1: 88 bpm Height: Respiratory Rate: 20 bpm Temperature: 36.7 (C) / 98.1 (F) Weight: 01/17/2015 Blood Pressure 1: 124 Code: 8480-6 BMI: 27.7 Code: 75024-6 Heart Rate 1: 76 bpm Height: 6'3" Respiratory Rate: 20 bpm Temperature: 36 .6 (C) / 97.8 (F) Weight: 222 lbs 09/19/2014 Blood Pressure 1: 12880 Code: 8480-6 BMI: 27.4 Code: 55269-2 Heart Rate 1: 64 bpm Height: 6'3" Respiratory Rate: 20 bpm Temperature: 36 .4 (C) / 97.6 (F) Weight: 219 lbs 10/17/2013 Blood Pressure 1: 116/70 Code: 8480-6 Heart Rate 1: 88 bpm Respiratory Rate: 20 bpm Temperature: 36.9 (C) / 98.4 (F) Weight: 220 lbs 09/23/2013 Blood Pressure 1: 12480 Code: 8480-6 BMI: 28.7 Code: 56238-0 Heart Rate 1: 76 bpm Height: 6'3" Respiratory Rate: 20 bpm Temperature: 36 .8 (C) / 98.2 (F) Weight: 230 lbs 07/22/2013 Blood Pressure 1: 128/70 Code: 8480-6 He art Rate 1: 78 bpm 06/20/2013 Blood Pressure 1: 144/86 Code: 8480-6 BMI: 28.7 Code: 41930-3 Heart Rate 1: 92 bpm Height: 6'3" Respiratory Rate: 20 bpm Temperature: 36 .4 (C) / 97.6 (F) Weight: 230 lbs 11/25/2012 Blood Pressure 1: 128/80 Code: 8480-6 BMI: 27.5 Code: 17345-2 Heart Rate 1: 92 bpm Height: 6'3" Respiratory Rate: 20 bpm Temperature: 36 .8 (C) / 98.3 (F) Weight: 220 lbs 08/27/2012 Blood Pressure 1: 142/80 Code: 8480-6 BMI: 27.7 Code: 26392-4 Heart Rate 1: 76 bpm Height: 6'3" Respiratory Rate: 20 bpm Temperature: 36 .8 (C) / 98.3 (F) Weight: 222 lbs 05/11/2012 Blood Pressure 1: 136/80 Code: 8480-6 BMI: 27.7 Code: 52560-0 Heart Rate 1: 76 bpm Height: 6'3" Respiratory Rate: 20 bpm Temperature: 36 .8 (C) / 98.3 (F) Weight: 222 lbs 03/02/2012 Blood Pressure 1: 136/70 Code: 8480-6 BMI: 28.0 Code: 09340-4 Heart Rate 1: 80 bpm Height: 6'3" Respiratory Rate: 20 bpm Temperature: 36 .6 (C) / 97.8 (F) Weight: 224 lbs 12/11/2011 Blood Pressure 1: 142/80 Code: 8480-6 BMI: 27.1 Code: 76911-7 Heart Rate 1: 84 bpm Height: 6'3" Respiratory Rate: 20 bpm Temperature: 36 .9 (C) / 98.4 (F) Weight: 217 lbs 08/14/2011 Blood Pressure 1: 130/82 Code: 8480-6 He art Rate 1: 64 bpm 07/29/2011 Blood Pressure 1: 132/64 Code: 8480-6 BMI: 26.7 Code: 28083-1 Heart Rate 1: 72 bpm Height: 6'3" [...] 1: 142/88 Code: 8480-6 BMI: 26.4 Code: 85623-8 Heart Rate 1: 80 bpm Height: 6'3" [...] labs Encounters Encounter Performer Location Codes Date ([id number]) NURSE/OUTPATIENT VISIT EST Diagnosis: Essential (primary) hypertension[ICD10: I10] Diagnosis: Type 2 diabetes mellitus with hyperglycemia[ICD10: E11.65] Najma MCARTHUR [employer] CPT-4: 45150 08/24/2019 ([id number]) OFFICE/OUTPATIENT VISIT EST Diagnosis: Essential (primary) hypertension[ICD10: I10] Diagnosis: Gastro-esophageal reflux disease without esophagitis[ICD10: K21.9] Diagnosis: Type 2 diabetes mellitus with hyperglycemia[ICD10: E11.65] Najma MCARTHUR [employer] CPT-4: 37956 06/02/2019 ([id number]) NURSE/OUTPATIENT VISIT EST Diagnosis: Type 2 diabetes mellitus without complications[ICD10: E11.9] Diagnosis: Essential (primary) hypertension[ICD10: I10] Diagnosis: Mixed hyperlipidemia[ICD10: E78.2] Najma GODINEZ [employer] CPT-4: 30546 05/24/2019 ([id number]) OFFICE/OUTPATIENT VISIT EST Diagnosis: Essential (primary) hypertension[ICD10: I10] Diagnosis: Type 2 diabetes mellitus without complications[ICD10: E11.9] Diagnosis: Mixed hyperlipidemia[ICD10: E78.2] Najma GODINEZ [employer] CPT-4: 05599 01/31/2019 ([id number]) NURSE/OUTPATIENT VISIT EST Diagnosis: Mixed hyperlipidemia[ICD10: E78.2] Diagnosis: Type 2 diabetes mellitus without complications[ICD10: E11.9] Diagnosis: Essential (primary) hypertension[ICD10: I10] Diagnosis: Chronic kidney disease, unspecified[ICD10: N18.9] Najma OG [employer] CPT-4: 87462 01/26/2019 ([id number]) NURSE/OUTPATIENT VISIT EST Diagnosis: Chronic kidney disease, unspecified[ICD10: N18.9] Diagnosis: Essential (primary) hypertension[ICD10: I10] Najma SAMSONBreitbart News NetworkBIJAN [employer] CPT-4: 89721 09/30/2018 ([id number]) OFFICE/OUTPATIENT VISIT EST Diagnosis: Essential (primary) hypertension[ICD10: I10] Diagnosis: Type 2 diabetes mellitus without complications[ICD10: E11.9] Diagnosis: Mixed hyperlipidemia[ICD10: E78.2] Diagnosis: Unspecified kidney failure[ICD10: N19] Najma HAQUE ADELA [employer] CPT-4: 77789 08/19/2018 ([id number]) NURSE/OUTPATIENT VISIT EST Diagnosis: Essential (primary) hypertension[ICD10: I10] Diagnosis: Type 1 diabetes mellitus with unspecified complications[ICD10: E10.8] Diagnosis: Mixed hyperlipidemia[ICD10: E78.2] Najma MANUELEVELINA GRETCHEN [employer] CPT-4: 90832 08/16/2018 ([id number]) OFFICE/OUTPATIENT VISIT EST Diagnosis: Essential (primary) hypertension[ICD10: I10] Diagnosis: Type 2 diabetes mellitus without complications[ICD10: E11.9] Diagnosis: Mixed hyperlipidemia[ICD10: E78.2] Najmaanaid Og [employer] G[employer] CPT-4: 87142 05/10/2018 ([id number]) NURSE/OUTPATIENT VISIT EST Diagnosis: Essential (primary) hypertension[ICD10: I10] Diagnosis: Mixed hyperlipidemia[ICD10: E78.2] Diagnosis: Type 1 diabetes mellitus with unspecified complications[ICD10: E10.8] Najma OG [employer] [facility] CPT-4: 15471 05/05/2018 ([id number]) OFFICE/OUTPATIENT VISIT EST Diagnosis: Type 2 diabetes mellitus without complications[ICD10: E11.9] Diagnosis: Mixed hyperlipidemia[ICD10: E78.2] Diagnosis: Nicotine dependence, unspecified, uncomplicated[ICD10: F17.200] Diagnosis: Essential (primary) hypertension[ICD10: I10] Najma MANUELLINE Matilda OG [employer] [facility] CPT-4: 62730 01/19/2018 ([id number]) NURSE/OUTPATIENT VISIT EST Diagnosis: Type 1 diabetes mellitus with unspecified complications[ICD10: E10.8] Diagnosis: Essential (primary) hypertension[ICD10: I10] Diagnosis: Male erectile disorder[ICD10: F52.21] Diagnosis: Encounter for screening for malignant neoplasm of prostate[ICD10: Z12.5] Najma MANUELLINE Matilda LONG [employer] [facility] CPT-4: 08483 01/13/2018 ([id number]) OFFICE/OUTPATIENT VISIT EST Diagnosis: Type 2 diabetes mellitus without complications[ICD10: E11.9] Diagnosis: Essential (primary) hypertension[ICD10: I10] Diagnosis: Mixed hyperlipidemia[ICD10: E78.2] Najma ABBOTTDAREN GODINEZ Matilda LONG [employer] [facility] CPT-4: 92286 10/15/2017 ([id number]) NURSE/OUTPATIENT VISIT EST Diagnosis: Type 2 diabetes mellitus without complications[ICD10: E11.9] Diagnosis: Mixed hyperlipidemia[ICD10: E78.2] Diagnosis: Essential (primary) hypertension[ICD10: I10] Diagnosis: Glossitis[ICD10: K14.0] Najma MANUELLINE Matilda THAKKAR [employer] [facility] CPT-4: 34217 10/06/2017 ([id number]) OFFICE/OUTPATIENT VISIT EST Diagnosis: Type 2 diabetes mellitus without complications[ICD10: E11.9] Diagnosis: Mixed hyperlipidemia[ICD10: E78.2] Diagnosis: Essential (primary) hypertension[ICD10: I10] Najma OG DO [facility] CPT-4: 54817 03/11/2017 ([id number]) OFFICE/OUTPATIENT VISIT EST Diagnosis: Type 1 diabetes mellitus with unspecified complications[ICD10: E10.8] Diagnosis: Mixed hyperlipidemia[ICD10: E78.2] Diagnosis: Essential (primary) hypertension[ICD10: I10] Diagnosis: Other fatigue[ICD10: R53.83] Najma OG DO [facility] CPT-4: 61131 03/05/2017 ([id number]) OFFICE/OUTPATIENT VISIT EST Diagnosis: Type 2 diabetes mellitus without complications[ICD10: E11.9] Diagnosis: Mixed hyperlipidemia[ICD10: E78.2] Diagnosis: Essential (primary) hypertension[ICD10: I10] Diagnosis: Nicotine dependence, unspecified, uncomplicated[ICD10: F17.200] Najma OG DO [facility] CPT-4: 44939 07/09/2016 ([id number]) OFFICE/OUTPATIENT VISIT EST Diagnosis: Type 1 diabetes mellitus with unspecified complications[ICD10: E10.8] Diagnosis: Mixed hyperlipidemia[ICD10: E78.2] Diagnosis: Essential (primary) hypertension[ICD10: I10] Najma OG DO [facility] CPT-4: 80244 06/16/2016 ([id number]) OFFICE/OUTPATIENT VISIT EST Diagnosis: Type 2 diabetes mellitus without complications[ICD10: E11.9] Diagnosis: Mixed hyperlipidemia[ICD10: E78.2] Diagnosis: Essential (primary) hypertension[ICD10: I10] Najma OG DO [facility] CPT-4: 54000 03/10/2016 ([id number]) OFFICE/OUTPATIENT VISIT EST Diagnosis: Type 1 diabetes mellitus with unspecified complications[ICD10: E10.8] Diagnosis: Mixed hyperlipidemia[ICD10: E78.2] Diagnosis: Essential (primary) hypertension[ICD10: I10] Najma OG DO [facility] CPT-4: 70985 03/06/2016 ([id number]) OFFICE/OUTPATIENT VISIT EST Diagnosis: Bitten or stung by nonvenomous insect and other nonvenomous arthropods, subsequent encounter[ICD10: W57.XXXD] Diagnosis: Insect bite (nonvenomous), right thigh, subsequent encounter[ICD10: S70.361D] Barbara Brower NAJMA [employer] CPT-4: 64748 11/2015 ([id number]) OFFICE/OUTPATIENT VISIT EST Diagnosis: Bitten or stung by nonvenomous insect and other nonvenomous arthropods, initial encounter[ICD10: W57.XXXA] Diagnosis: Insect bite (nonvenomous), right thigh, initial encounter[ICD10: S70.361A] Barbara Brower NAJMA [employer] CPT-4: 58886 09/2015 ([id number]) OFFICE/OUTPATIENT VISIT EST Diagnosis: Mixed hyperlipidemia[ICD10: E78.2] Diagnosis: Essential (primary) hypertension[ICD10: I10] Diagnosis: Type 2 diabetes mellitus without complications[ICD10: E11.9] Diagnosis: Encounter for immunization[ICD10: Z23] Diagnosis: Encounter for screening for malignant neoplasm of colon[ICD10: Z12.11] Diagnosis: Abnormal weight gain[ICD10: R63.5] Barbara Brower ANUM GODINEZ [employer] CPT-4: 68086 09/06/2015 ([id number]) OFFICE/OUTPATIENT VISIT EST Diagnosis: Type 2 diabetes mellitus without complications[ICD10: E11.9] Diagnosis: Mixed hyperlipidemia[ICD10: E78.2] Diagnosis: Essential (primary) hypertension[ICD10: I10] Diagnosis: Encounter for screening for malignant neoplasm of prostate[ICD10: Z12.5] Diagnosis: Other fatigue[ICD10: R53.83] Najma MCARTHUR [employer] CPT-4: 04791 08/31/2015 OFFICE/OUTPATIENT VISIT EST Diagnosis: Diarrhea, unspecified[ICD10: R19.7] Henrietta MCCOY [employer] CPT-4: 45144 06/29/2015 OFFICE/OUTPATIENT VISIT EST Diagnosis: PNEUMOCOCCAL VACCINE[ICD10: Z23] Diagnosis: FLU VACCINE[ICD10: Z23] Diagnosis: Essential (primary) hypertension[ICD10: I10] Diagnosis: Mixed hyperlipidemia[ICD10: E78.2] Diagnosis: Type 1 diabetes mellitus with unspecified complications[ICD10: E10.8] Diagnosis: Actinic keratosis[ICD10: L57.0] Najma OG [facility] CPT-4: 16158 01/17/2015 ([id number]) OFFICE/OUTPATIENT VISIT EST Diagnosis: Type 2 diabetes mellitus without complications[ICD10: E11.9] Diagnosis: Impaired fasting glucose[ICD10: R73.01] Diagnosis: Mixed hyperlipidemia[ICD10: E78.2] Diagnosis: Essential (primary) hypertension[ICD10: I10] Najma OG [employer] [facility] CPT-4: 62342 01/12/2015 ([id number]) OFFICE/OUTPATIENT VISIT EST Diagnosis: - I - HYPERLIPIDEMIA NEC/NOS[ICD9: 272.4] Diagnosis: HYPERTENSION[ICD9: 401.9] Diagnosis: DM W/O COMPLICATION TYPE II[ICD9: 250.00] Diagnosis: ACTINIC KERATOSIS[ICD9: 702.0] Najma OG [employer] [facility] CPT-4: 11269 09/19/2014 ([id number]) OFFICE/OUTPATIENT VISIT EST Diagnosis: HYPERLIPIDEMIA NEC/NOS[ICD9: 272.4] Diagnosis: HYPERTENSION[ICD9: 401.9] Diagnosis: IMPAIRED FASTING GLUCOSE[ICD9: 790.21] Diagnosis: MALAISE AND FATIGUE[ICD9: 780.79] Najma OG [employer] [facility] CPT-4: 89810 08/15/2014 ([id number]) OFFICE/OUTPATIENT VISIT EST Diagnosis: HYPERLIPIDEMIA NEC/NOS[ICD9: 272.4] Diagnosis: HYPERTENSION[ICD9: 401.9] Diagnosis: IMPAIRED FASTING GLUCOSE[ICD9: 790.21] Najma Heverlane CHAPMAN Matilda OG [employer] [facility] CPT-4: 00284 12/14/2013 ([id number]) OFFICE/OUTPATIENT VISIT EST Diagnosis: Post herpetic neuralgia[ICD9: 053.19] Najma BROOKS Matilda OG [employer] [facility] CPT-4: 69145 10/17/2013 OFFICE/OUTPATIENT VISIT EST Diagnosis: Shingles[ICD9: 053.9] Diagnosis: Post herpetic neuralgia[ICD9: 053.19] Jeanie ScottRandshawneeamita [facility] CPT-[facility]: 35353 09/23/2013 ([id number]) OFFICE/OUTPATIENT VISIT EST Diagnosis: HYPERTENSION[ICD9: 401.9] Diagnosis: HYPERLIPIDEMIA NEC/NOS[ICD9: 272.4] Diagnosis: IMPAIRED FASTING GLUCOSE[ICD9: 790.21] [facility] CPT-[facility]: 22395 06/20/2013 ([id number]) OFFICE/OUTPATIENT VISIT EST Diagnosis: HYPERLIPIDEMIA NEC/NOS[ICD9: 272.4] Diagnosis: MALAISE AND FATIGUE[ICD9: 780.79] Diagnosis: ROUTINE MEDICAL EXAM[ICD9: V70.0] Diagnosis: HYPERTENSION[ICD9: 401.9] Diagnosis: IMPAIRED FASTING GLUCOSE[ICD9: 790.21] [facility] CPT-[facility]: 36469 06/08/2013 ([id number]) OFFICE/OUTPATIENT VISIT EST Diagnosis: HYPERLIPIDEMIA NEC/NOS[ICD9: 272.4] Diagnosis: HYPERTENSION[ICD9: 401.9] Diagnosis: IMPAIRED FASTING GLUCOSE[ICD9: 790.21] Diagnosis: DIARRHEA[ICD9: 787.91] Najma MANUELLINE Matilda Stallings [facility] CPT-4: 44553 11/25/2012 ([id number]) OFFICE/OUTPATIENT VISIT EST Diagnosis: HYPERLIPIDEMIA NEC/NOS[ICD9: 272.4] Diagnosis: HYPERTENSION[ICD9: 401.9] Diagnosis: IMPAIRED FASTING GLUCOSE[ICD9: 790.21] Diagnosis: MALAISE AND FATIGUE[ICD9: 780.79] Najma Hevervicentebijan FILI Gregory LONG [employer] [facility] CPT-4: 97234 11/11/2012 OFFICE/OUTPATIENT VISIT EST Diagnosis: Fungal dermatitis[ICD9: 111.9] Diagnosis: Dry skin dermatitis[ICD9: 692.89] Henrietta Jenkins AmeenaMatilde MERCEDES [employer] [facility] CPT-4: 18498 08/27/2012 ([id number]) OFFICE/OUTPATIENT VISIT EST Diagnosis: HYPERTENSION[ICD9: 401.9] Diagnosis: HYPERLIPIDEMIA NEC/NOS[ICD9: 272.4] Najma SAMSONNDER [facility] CPT-4: 70739 05/11/2012 ([id number]) OFFICE/OUTPATIENT VISIT EST Diagnosis: HYPERLIPIDEMIA NEC/NOS[ICD9: 272.4] Diagnosis: HYPERTENSION[ICD9: 401.9] Diagnosis: ROUTINE MEDICAL EXAM[ICD9: V70.0] Najma SAMSONNDER [facility] CPT-4: 05352 05/04/2012 ([id number]) OFFICE/OUTPATIENT VISIT EST Diagnosis: HYPERTENSION[ICD9: 401.9] Diagnosis: HYPERLIPIDEMIA NEC/NOS[ICD9: 272.4] Diagnosis: IMPAIRED FASTING GLUCOSE[ICD9: 790.21] Najma ASMSONNDBIJAN WADE [facility] CPT-4: 18259 12/11/2011 ([id number]) OFFICE/OUTPATIENT VISIT EST Diagnosis: HYPERLIPIDEMIA NEC/NOS[ICD9: 272.4] Diagnosis: HYPERTENSION[ICD9: 401.9] Diagnosis: IMPAIRED FASTING GLUCOSE[ICD9: 790.21] Najma SAMSONNDER [facility] CPT-4: 06872 10/29/2011 ([id number]) OFFICE/OUTPATIENT VISIT EST Diagnosis: HYPERTENSION[ICD9: 401.9] Najma SAMSON NDER [facility] CPT-4: 70094 08/14/2011 ([id number]) OFFICE/OUTPATIENT VISIT EST Diagnosis: HYPERTENSION[ICD9: 401.9] Diagnosis: IMPAIRED FASTING GLUCOSE[ICD9: 790.21] Najma SAMSONNDER [facility] CPT-4: 49148 07/29/2011 ([id number]) OFFICE/OUTPATIENT VISIT EST Diagnosis: HYPERTENSION[ICD9: 401.9] Najma SAMSON NDER [facility] CPT-4: 48083 07/23/2011 ([id number]) OFFICE/OUTPATIENT VISIT EST Diagnosis: HYPERTENSION[ICD9: 401.9] Najma SAMSON NDER [facility] CPT-4: 05559 06/24/2011 OFFICE/OUTPATIENT VISIT EST Diagnosis: HYPERTENSION[ICD9: 401.9] Najma PAYAN DO [employer] CPT-4: 03470 05/20/2011 OFFICE/OUTPATIENT VISIT EST Diagnosis: HYPERTENSION[ICD9: 401.9] Najma PAYAN DO [employer] CPT-4: 63748 04/15/2011 OFFICE/OUTPATIENT VISIT EST Diagnosis: HYPERLIPIDEMIA NEC/NOS[ICD9: 272.4] Diagnosis: IMPAIRED FASTING GLUCOSE[ICD9: 790.21] Najma OG DO [employer] CPT-4: 00479 03/18/2011 ([id number]) OFFICE/OUTPATIENT VISIT EST Najma OG DO [employer] CPT-4: 27801 07/30/2010 ([id number]) PREV VISIT, EST, AGE 40-64 Najma OG DO [employer] CPT-4: 72037 04/24/2010 Plan of Care Planned Activity Notes [...] K21.9 06/02/2019 Appointment[facility] [phone] [id number] [facility] 06/02/2019 Appointment: [facility]aj[facility] Og [facility] [phone] [facility] [facility] 05/24/2019 Visit Diagnosis Plan: Essential [...] : E78.2 01/31/2019 Appointment: Najma Og WPtel: [address] [place] [address] US FOLLOW UP 01/31/2019 Appointment: Najma Og WPtel: [address] [place] [address] US LAB 01/26/2019 Appointment: Najma Og WPtel: [address] [place] [address] US LAB 09/30/2018 Visit Diagnosis Plan: Unspecified [...] : E11.9 08/19/2018 Appointment: Najma Og WPtel: [address] [place] [address] US FOLLOW UP 08/19/2018 Appointment: Najma Og WPtel: [address] [place], [place] [phone] [place] LAB 08/16/2018 Visit Diagnosis Plan: Essential [...] : E78.2 05/10/2018 Appointment: Najma Og WPtel: [address] [place], [place] [phone] [place] FOLLOW UP 05/10/2018 Patient Education: Low Back Pain Exercises: Illustration Completed 05/10/2018 Patient Education: Low Back Pain Exercises Completed 05/10/2018 Appointment: Najma Og WPtel: [address] [place], [place] [phone] [place] LAB 05/05/2018 Visit Diagnosis Plan: Type [...] : E78.2 01/19/2018 Appointment: Najma Og WPtel: [address] [place], [place] [phone] [place] FOLLOW UP 01/19/2018 Patient Education: Patient Medication Summary Completed 01/19/2018 Appointment: Najma Og WPtel: [address] [place], [place] [phone] [place] LAB 01/13/2018 Patient Education: Patient Medication [...] : I10 10/15/2017 Appointment: Najma Og WPtel: [address] [place], [place] [phone] [place] FOLLOW UP 10/15/2017 Patient Education: Patient Medication Summary Completed 10/15/2017 Appointment: Najma Og WPtel: [address] [place], [place] [phone] [place] LAB 10/06/2017 Patient Education: Patient Medication Summary Completed 10/06/2017 Visit Diagnosis Plan: Actinic keratosis Discussion: Cr yotherapy as above ICD-9 : 702.0 ICD-10 : L57.0 04/23/2017 Appointment: Najma Og WPtel: [address] [place], [place] [phone] OFFICE SURGERY 04/23/2017 Patient Education: Patient Medication [...] : E78.2 03/11/2017 Appointment: Najma Og WPtel: [address] [place], [place] [phone] [place] FOLLOW UP 03/11/2017 Patient Education: Patient Medication Summary Completed 03/11/2017 Appointment: Najma Og WPtel: [address] [place], [place] [phone] [place] LAB 03/05/2017 Patient Education: Patient Medication [...] : F17.200 07/09/2016 Appointment: Najma Og WPtel: [address] [place], [place] [phone] [place] 07/08 lm ~sl 07/09 confirmed~sl FOLLOW UP 08/2016 Patient Education: Patient Medication Summary Completed 07/09/2016 Appointment: Najma Og WPtel: [address] [place] [address] US LAB 06/16/2016 Patient Education: Patient Medication Summary Completed 06/16/2016 Visit Plan: Lab discussed Accuchecks maribel ly Lifestyle change for 3mos then check CMP, HbA1C in 3mos Has had flu and pneumonia shot 03/10/2016 Appointment: Najma Og WPtel: [address] [place], [place] [phone] [place] 03/06 confirmed `sl FOLLOW UP 03/10/2016 Patient Education: Patient Medication Summary Completed 03/10/2016 Appointment: Najma Og WPtel: [address] [place], [place] [phone] [place] LAB 03/06/2016 Patient Education: Patient Medication Summary Completed 03/06/2016 Ref[facility]: [id number] [facility] Ref[facility] Completed 10/22/2015 Visit Plan: Tick bite area looks much be tter Continue current rxs and close monitoring Follow up if any new symptoms or worsening appearance 09/12/2015 Appointment: Barbara Brower [address] [place] [address] 09/10 confirmed~sl FOLLOW UP 09/12/2015 Patient Education: Patient Medication Summary Completed 09/12/2015 Visit Plan: Cover as above 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 topical steroids to calm down the inflammation(suspect most of redness is due to histamine response vs infection) Monitor closely Follow up in 2 days to recheck 09/10/2015 Appointment: Barbara Brower [address] [place], [place] [phone] ACUTE ILLNESS 09/10/2015 Patient Education: Patient Medication [...] consider shingles vaccine 09/06/2015 Appointment: Barbara Brower [address] [place], [place] [phone] FOLLOW UP 09/06/2015 Patient Education: Patient Medication Summary Completed 09/06/2015 Care Plan: Referral Order SNOMED-CT : [id number] Pending 09/06/2015 Appointment: Najma Og WPtel: [phone] [phone] LAB 08/31/2015 Patient Education: Patient Medication Summary [...] UC/ER. 06/29/2015 Appointment: Henrietta Lubin WPtel: [phone] [id number] ACUTE ILLNESS 06/29/2015 Patient Education: Patient Medication Summary Completed 06/29/2015 Visit Plan: Lab discussed Will keep meds the same Discussed diet/exercise at length Cryotherapy as above to AKs of arms Flu and Prevnar 13 given Trial of revatio per patient request for ED--warned of no nitrates Recheck 4mos 01/17/2015 Appointment: Najma Og WPtel: [address] [place], [place] [phone] 01/16 confirmed~sl FOLLOW UP 01/17/2015 Patient Education: Patient Medication Summary Completed 01/17/2015 Appointment: Najma Og WPtel: [address] [place], [place] [phone] [place] LAB 01/12/2015 Patient Education: Patient Medication Summary Completed 01/12/2015 Visit Plan: Lab discussed Start accuchec ks daily Cryotherapy as above 09/19/2014 Appointment: Najma Og WPtel: [address] [place] [address] 09/18 confirmed -mf FOLLOW UP 09/19/2014 Patient Education: Patient Medication Summary Completed 09/19/2014 Appointment: Najma Og WPtel: [address] [place] [address] LAB 08/15/2014 Patient Education: Patient Medication Summary Completed 08/15/2014 Appointment: Najma Og WPtel: [address] [place] [address] ACUTE ILLNESS 12/14/2013 Patient Education: Patient Medication Summary Completed 12/14/2013 Visit Plan: Patient using tylenol prn pa in Discussed possible shingles shot for booster in 9-12mos 10/17/2013 Appointment: Najma Og WPtel: [address] [place], [place] [phone] FOLLOW UP 10/17/2013 Patient Education: Patient Medication Summary Completed 10/17/2013 Appointment: Jeanie Briceño WPtel: [address] [place] [address] ACUTE ILLNESS 09/23/2013 Patient Education: Patient Medication Summary Completed 09/23/2013 Appointment: Najma Og WPtel: [address] [place] [address] BP CHECK 07/22/2013 Patient Education: Patient Medication Summary Completed 07/22/2013 Visit Plan: Lab discussed Discussed swit arun amlodopine to beta slim to see if helps with tremor BP check in 1mo 06/20/2013 Appointment: Najma Og WPtel: [address] [place], [place] [phone] 06/17 no answer FOLLOW UP 06/20/2013 Patient Education: Patient Medication Summary Completed 06/20/2013 Appointment: Najma Og WPtel: [address] [place], [place] [phone] [place] LAB 06/08/2013 Patient Education: Patient Medication Summary Completed 06/08/2013 Visit Plan: BRAT diet and yogurt and gat orade Lab discussed Continue current meds Spot checks on BS 11/25/2012 Appointment: Najma Og WPtel: [address] [place], [place] [phone] 11/24 vm FOLLOW UP 11/25/2012 Patient Education: Patient Medication Summary Completed 11/25/2012 Appointment: Najma Og WPtel: [address] [place], [place] [phone] LAB 11/11/2012 Patient Education: Patient Medication Summary Completed 11/11/2012 Appointment: Henrietta Lubin WPtel: [address] [place], [place] [id number] WORK IN 08/27/2012 Patient Education: Patient Medication Summary Completed 08/27/2012 Visit Plan: Pt going to get new home BP moniter Continue crestor and restart fish oil and will check fasting lab in 6mos Lab results discussed 05/11/2012 Appointment: Najma Og WPtel: [address] [place], [place] [phone] 05/10 vm FOLLOW UP 05/11/2012 Patient Education: Patient Medication Summary Completed 05/11/2012 Appointment: Najma Og WPtel: [address] [place], [place] [phone] [place] LAB 05/04/2012 Patient Education: Patient Medication Summary Completed 05/04/2012 Visit Plan: 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 and forehead 03/02/2012 Appointment: Najma Og WPtel: [address] [place], [place] [phone] 03/01 OFFICE SURGERY 03/02/2012 Patient Education: Patient Medication Summary Completed 03/02/2012 Visit Plan: Labs discussed--recheck lab end of Feb/mar Continue current meds and continue to moniter BS daily and BP 1-2 times a week Plan on cryotherapy this fall so can wear longsleeves after procedure See urology 12/11/2011 Appointment: Najma Og WPtel: [address] [place] [address] FOLLOW UP 12/11/2011 Patient Education: Patient Medication Summary Completed 12/11/2011 Appointment: Najma Og WPtel: [address] [place], [place] [phone] LAB 10/29/2011 Patient Education: Patient Medication Summary Completed 10/29/2011 Appointment: Najma Og WPtel: [address] [place] [address] BP CHECK 08/14/2011 Patient Education: Patient Medication Summary Completed 08/14/2011 Appointment: Najma Og WPtel: [address] [place], [place] [phone] ACUTE ILLNESS 07/29/2011 Patient Education: Patient Medication Summary Completed 07/29/2011 Appointment: Najma Og WPtel: [address] [place] [address] BP CHECK 07/23/2011 Patient Education: Patient Medication Summary Completed 07/23/2011 Appointment: Najma Og WPtel: [address] [place], [place] [phone] BP CHECK 06/24/2011 Patient Education: Patient Medication Summary Completed 06/24/2011 Appointment: Najma Og WPtel: [address] [place], [place] [phone] [place] BP CHECK 05/20/2011 Patient Education: Patient Medication Summary Completed 05/20/2011 Appointment: Najma Og WPtel: [address] [place], [place] [phone] [place] BP CHECK 04/29/2011 Patient Education: Patient Medication Summary Completed 04/29/2011 Appointment: Najma Og WPtel: [address] [place], [place] [phone] [place] BP CHECK 04/15/2011 Patient Education: Patient Medication Summary Completed 04/15/2011 Visit Plan: Continue current meds Add fi sh oil 1gm daily Glucometer given to use for accuchecks prn 03/18/2011 Appointment: Najma Og WPtel: [address] [place], [place] [phone] [place] FOLLOW UP 03/18/2011 Patient Education: Patient Medication Summary Completed 03/18/2011 Appointment: Najma Og WPtel: [address] [place] [phone] [place] LAB 03/14/2011 Patient Education: Patient Medication Summary Completed 03/14/2011 Appointment: Najma Og WPtel: [address] [place] [phone] [place] LAB 11/11/2010 Appointment: Najma Og WPtel: [address] [place], [place] [phone] [place] UA 11/11/2010 Patient Education: Patient Medication Summary Completed 11/11/2010 Appointment: Najma Og WPtel: [address] [place], [place] [phone] [place] LAB 10/29/2010 Patient Education: Patient Medication Summary Completed 10/29/2010 Appointment: Najma Og WPtel: [address] [place] [phone] [place] FOLLOW UP 07/30/2010 Patient Education: Patient Medication Summary Completed 07/30/2010 Appointment: Najma Og WPtel: [address] [place], [place] [phone] [place] LAB 07/23/2010 Patient Education: Patient Medication Summary Completed 07/23/2010 Appointment: Najma Og WPtel: [address] [place], [place] [phone] [place] LAB 04/26/2010 Patient Education: Patient Medication Summary Completed 04/26/2010 Visit Plan: Add PSA to lab Restart Crest or at 10mg daily Trial of Wellbutrin to aid in smoking cessation Check Lipids and LFTs in 3mos 04/24/2010 Appointment: Najma Og WPtel: [address] [place], [place] [phone] FOLLOW UP 04/24/2010 Patient Education: Patient Medication Summary Completed 04/24/2010 Appointment: Najma Og WPtel: [address] [place], [place] [phone] [place] LAB 04/19/2010 Patient Education: Patient Medication Summary Completed 04/19/2010 Referral: Donavon Keller WPtel: [id number] [place] Referral Completed Instructions Comment . Lab [...]
--- OUTSIDE RECORDS SUMMARY | 2019-10-14 22:41 | XMS REPORT | CCD ---
Author Author Inocente Og D.O. Organization [facility] Address [address] [place] [address] Phone Care Team Providers Care [employer] Foreign [employer] Tutor Name Role Phone Najma Og D.O. PP Unavailable CCM Unavailable Summary Purpose Interface Exchange Insurance Providers Payer name Policy type / Coverage type Covered democrat ID Effective Begin Date Effective End Date [employer] MEDICARE Medicare Part B [id number] Unknown [facility] Medicare Part B [id number] Un known Family history Father Diagnosis Age At Onset Diabetes mellitus Type 2 Unknown Myocardial infarction Unknown Brother Diagnosis Age At Onset Diabetes mellitus Type 2 Unknown Mother Diagnosis Age At Onset Osteoarthritis Unknown Cerebrovascular disease Unknown Social History Social History Element Codes Description Effective Dates Tobacco history SNOMED CT: 480696149 Never smoker 12/21/2014 Marital status Unknown 07/30/2010 [...] Instructions fenofibrate micronized 134 mg capsule RxNorm: 500450 TA KE 1 CAPSULE BY MOUTH ONCE DAILY FOR TRIGLYCERIDES 07/08/2019 10/05/2019 Active amlodipine 5 mg tablet RxNorm: 519618 TAKE 1 TABLET BY MOUTH ON CE DAILY 06/16/2019 09/13/2019 Active metformin ER 500 mg tablet,extended release 24 hr RxNorm: 86 0975 TAKE 1 TABLET BY MOUTH ONCE DAILY 06/10/2019 09/07/2019 Active propranolol ER 80 mg capsule,24 hr,extended release RxNorm: 479466 TAKE 1 CAPSULE BY MOUTH ONCE DAILY 06/10/2019 09/07/2019 Active Vitamin D3 25 mcg (1,000 unit) capsule RxNorm: 105807 1 Capsule(s) Oral two times a day 06/02/2019 No Stop Date Active turmeric 400 mg capsule RxNorm: 1 Capsule(s) Oral QD 06/02/2019 No Stop Date Active Fish Oil 120 mg-180 mg-500 mg capsule RxNorm: 2 Capsule(s) Ora l QD 06/02/2019 No Stop Date Active 16.2 mg-0.1037 mg-0.0194 mg tablet RxNorm: 2413272 1 Tablet(s) Oral four times a day as needed abdominal pain/diarrhea 06/02/2019 No Stop D ate Active fenofibrate micronized 134 mg capsule RxNorm: 971207 1 Capsule(s) Oral QD for triglycerides 04/14/2019 07/07/2019 Inactive amlodipine 5 mg tablet RxNorm: 107415 TAKE 1 TABLET BY MOUTH ON CE DAILY 03/22/2019 06/15/2019 Inactive metformin ER 500 mg tablet,extended release 24 hr RxNorm: 86 0975 TAKE 1 TABLET BY MOUTH ONCE DAILY 03/15/2019 06/09/2019 Inactive propranolol ER 80 mg capsule,24 hr,extended release RxNorm: 832240 TAKE 1 CAPSULE BY MOUTH ONCE DAILY 03/15/2019 06/09/2019 Inactive amlodipine 5 mg tablet RxNorm: 313820 1 Tablet(s) PO QD 12/27/2018 Inactive fenofibrate micronized 134 mg capsule RxNorm: 116225 TA KE 1 CAPSULE BY MOUTH ONCE DAILY FOR TRIGLYCERIDES 10/11/2018 04/13/2019 Inactive amlodipine 5 mg tablet RxNorm: 598138 1 Tablet(s) PO QD 09/30/2018 Inactive metformin ER 500 mg tablet,extended release 24 hr RxNorm: 86 0975 TAKE 1 TABLET BY MOUTH ONCE DAILY 09/21/2018 03/14/2019 Inactive propranolol ER 80 mg capsule,24 hr,extended release RxNorm: 025444 TAKE 1 CAPSULE BY MOUTH ONCE DAILY 09/21/2018 03/14/2019 Inactive amlodipine 5 mg tablet RxNorm: 553266 1 Tablet(s) PO QD 08/25/2018 Inactive amlodipine 5 mg tablet RxNorm: 130514 1 Tablet(s) PO QD 08/25/2018 Inactive lisinopril 40 mg tablet RxNorm: 342247 TAKE 1 TABLET BY MOUTH O NCE DAILY 07/21/2018 08/24/2018 Inactive fenofibrate micronized 134 mg capsule RxNorm: 779031 TA KE 1 CAPSULE BY MOUTH ONCE DAILY FOR TRIGLYCERIDES 07/12/2018 10/10/2018 Inactive propranolol ER 80 mg capsule,24 hr,extended release RxNorm: 171793 TAKE 1 CAPSULE BY MOUTH ONCE DAILY 06/21/2018 09/20/2018 Inactive lisinopril 40 mg tablet RxNorm: 769562 TAKE 1 TABLET BY MOUTH O NCE DAILY 04/26/2018 07/20/2018 Inactive metformin ER 500 mg tablet,extended release 24 hr RxNorm: 662952 1 Tablet(s) QD 03/31/2018 09/20/2018 Inactive lisinopril 40 mg tablet RxNorm: 437455 TAKE 1 TABLET BY MOUTH O NCE DAILY 01/28/2018 04/25/2018 Inactive Vitamin D3 5,000 unit tablet RxNorm: 353800 1 Tablet(s) PO QD 01/1908/18/2018 Inactive fenofibrate micronized 134 mg capsule RxNorm: 717347 1 Capsule(s) PO QD for triglycerides 01/19/2018 07/11/2018 Inactive metformin ER 500 mg tablet,extended release 24 hr RxNorm: 275598 1 Tablet(s) QD 12/31/2017 03/30/2018 Inactive metformin ER 500 mg tablet,extended release 24 hr RxNorm: 503756 Tablet(s) 12/30/2017 12/30/2017 Inactive propranolol ER 80 mg capsule,24 hr,extended release RxNorm: 631782 1 Capsule(s) PO QD 12/17/2017 06/14/2018 Inactive metformin ER 500 mg tablet,extended release 24 hr RxNorm: 86 0975 1 Tablet(s) PO QD DUE FOR LABS AND APPT 12/02/2017 12/30/2017 Inactive Crestor 10 mg tablet RxNorm: 392948 TAKE ONE TABLET BY MOUTH ON CE DAILY 11/01/2017 01/18/2018 Inactive lisinopril 40 mg tablet RxNorm: 860260 TAKE ONE TABLET BY MOUTH ONCE DAILY [...] ER 80 mg capsule,24 hr,extended release RxNorm: 345682 1 Capsule(s) PO QD DUE FOR APPT 09/08/2017 12/17/2017 Inactive Crestor 10 mg tablet RxNorm: 285955 1 Tablet(s) PO QD T CHELSI ONE TABLET BY MOUTH DAILY 03/11/2017 09/06/2017 Inactive propranolol ER 80 mg capsule,24 hr,extended release RxNorm: 405961 1 Capsule(s) PO QD TAKE ONE CAPSULE BY MOUTH DAILY - REPLACES AMLODOPINE 03/11/2017 09/08/2017 Inactive metformin ER 500 mg tablet,extended release 24 hr RxNorm: 86 0975 1 Tablet(s) PO QD 03/11/2017 09/08/2017 Inactive lisinopril 40 mg tablet RxNorm: 274439 1 Tablet(s) PO QD 03/11/2017 0 09/06/2017 Inactive lisinopril 40 mg tablet RxNorm: 219322 1 Tablet(s) PO QD 02/16/2017 1 05/11/2016 Inactive metformin ER 500 mg tablet,extended release 24 hr RxNorm: 86 0975 1 Tablet(s) PO QD Due for labs and follow up before further refills 02/16/2017 017 Inactive propranolol ER 80 mg capsule,24 hr,extended release RxNorm: 542067 Capsule(s) TAKE ONE CAPSULE BY MOUTH DAILY - REPLACES AMLODOPINE 11/19/20162016 Inactive lisinopril 40 mg tablet RxNorm: 044932 1 Tablet(s) PO QD 11/17/2016 1 04/18/2016 Inactive metformin ER 500 mg tablet,extended release 24 hr RxNorm: 86 0975 1 Tablet(s) PO QD 11/17/2016 02/16/2017 Inactive lisinopril 40 mg tablet RxNorm: 555165 1 Tablet(s) PO Q D TAKE ONE TABLET BY MOUTH DAILY 08/19/2016 11/17/2016 Inactive metformin ER 500 mg tablet,extended release 24 hr RxNorm: 86 0975 Tablet(s) TAKE ONE TABLET BY MOUTH DAILY 08/19/2016 11/16/2016 Inactive propranolol ER 80 mg capsule,24 hr,extended release RxNorm: 333645 Capsule(s) TAKE ONE CAPSULE BY MOUTH DAILY - REPLACES AMLODOPINE 08/19/20162016 Inactive Crestor 10 mg tablet RxNorm: 998482 TAKE ONE TABLET BY MOUTH DAILY 06/16/2016 03/10/2017 Inactive lisinopril 40 mg tablet RxNorm: 169283 1 Tablet(s) PO Q D TAKE ONE TABLET BY MOUTH DAILY 05/23/2016 08/18/2016 Inactive metformin ER 500 mg tablet,extended release 24 hr RxNorm: 86 0975 TAKE ONE TABLET BY MOUTH DAILY 05/23/2016 08/19/2016 Inactive propranolol ER 80 mg capsule,24 hr,extended release RxNorm: 599212 TAKE ONE CAPSULE BY MOUTH DAILY - REPLACES AMLODOPINE 05/23/2016 08/19/2016 [place] [facility] Crestor 10 mg tablet RxNorm: 299841 TAKE ONE TABLET BY MOUTH DAILY 03/31/2016 06/15/2016 Inactive metformin ER 500 mg tablet,extended release 24 hr RxNorm: 86 0975 TAKE ONE TABLET BY MOUTH DAILY 02/19/2016 05/22/2016 Inactive propranolol ER 80 mg capsule,24 hr,extended release RxNorm: 143538 TAKE ONE CAPSULE BY MOUTH DAILY - REPLACES AMLODOPINE 11/23/2015 05/20/2016 [place] [facility] metformin ER 500 mg tablet,extended release 24 hr RxNorm: 86 0975 TAKE ONE TABLET BY MOUTH DAILY 11/08/2015 02/05/2016 Inactive Bactroban Nasal 2 % ointment RxNorm: 525863 Apply topic ally to affected area twice daily 09/10/2015 03/09/2016 Inactive Vibramycin 100 mg capsule RxNorm: 779991 1 Capsule(s) PO BID 201509/23/2015 Inactive lisinopril 40 mg tablet RxNorm: 537816 1 Tablet(s) PO Q D TAKE ONE TABLET BY MOUTH DAILY 08/27/2015 02/22/2016 Inactive metformin ER 500 mg tablet,extended release 24 hr RxNorm: 86 0975 TAKE ONE TABLET BY MOUTH DAILY 08/06/2015 11/03/2015 Inactive Levsin/SL 0.125 mg sublingual tablet RxNorm: 4436342 1 T ablet(s) SL Q4H as needed for stomach cramps 06/29/2015 07/03/2015 Inactive lisinopril 40 mg tablet RxNorm: 788243 Tablet(s) TAKE ONE TABLE T BY MOUTH DAILY 06/07/2015 08/26/2015 Inactive propranolol ER 80 mg capsule,24 hr,extended release RxNorm: 622034 TAKE ONE CAPSULE BY MOUTH DAILY - REPLACES AMLODOPINE 05/30/2015 11/22/2015 [place] [facility] metformin ER 500 mg tablet,extended release 24 hr RxNorm: 86 0975 1 Tablet(s) PO QD 05/10/2015 08/05/2015 Inactive Crestor 10 mg tablet RxNorm: 220787 TAKE ONE TABLET BY MOUTH DAILY 04/18/2015 10/14/2015 Inactive metformin ER 500 mg tablet,extended release 24 hr RxNorm: 86 0975 TAKE ONE TABLET BY MOUTH DAILY 02/07/2015 05/10/2015 Inactive sildenafil 20 mg tablet RxNorm: 125312 1 Tablet(s) PO QD 01/17/2015 1 04/17/2014 Inactive propranolol ER 80 mg capsule,24 hr,extended release RxNorm: 377874 1 Capsule(s) PO QD replaces amlodopine 11/28/2014 05/26/2015 Inactive [[facility] -- BIN:[id number], PCN: [id number], Group: [id number], ID# [id number], Process claim through Outbox, for questions: . THIS IS NOT INSURANCE.] lisinopril 40 mg tablet RxNorm: 942734 TAKE ONE TABLET BY MOUTH DAILY 11/16/2014 06/07/2015 Inactive lisinopril 40 mg tablet RxNorm: 580111 1 Tablet(s) PO QD 08/21/2014 0 11/15/2014 Inactive [AttnRPh: Saving apply/adjudicate RxGRP: [id number] RxBIN:[id number] RxPCN: ID#:[id number]] lisinopril 40 mg tablet RxNorm: 966976 1 Tablet(s) PO Q D NEEDS SEEN FOR APPOINTMENT 07/14/2014 08/21/2014 Inactive [AttnRPh: Saving apply/adjudicate RxGRP:SG20 RxBIN:[id number] RxPCN: ID#:[id number]] Crestor 10 mg tablet RxNorm: 265045 TAKE ONE TABLET BY MOUTH EV EILEEN07/06/2014 01/01/2015 Inactive metformin ER 500 mg tablet,extended release 24 hr RxNorm: 86 0975 1 Tablet(s) QD TAKE ONE TABLET BY MOUTH ONCE A DAY 06/09/2014 12/05/2014 Inactive propranolol ER 80 mg capsule,24 hr,extended release RxNorm: 745229 1 Capsule(s) PO QD replaces amlodopine 06/05/2014 11/28/2014 Inactive [[facility] -- BIN:[id number], PCN: [id number], Group: [id number], ID# [id number], Process claim through MedImpact, for questions: . THIS IS NOT INSURANCE.] propranolol ER 80 mg capsule,24 hr,extended release RxNorm: 910334 1 Capsule(s) PO QD replaces amlodopine 03/07/2014 06/05/2014 Inactive [[facility] -- BIN:[id number], PCN: [id number], Group: [id number], ID# [id number], Process claim through MedImpact, for questions: . THIS IS NOT INSURANCE.] metformin ER 500 mg tablet,extended release 24 hr RxNorm: 86 0975 TAKE ONE TABLET BY MOUTH ONCE A DAY 12/15/2013 06/09/2014 Inactive propranolol ER 80 mg capsule,24 hr,extended release RxNorm: 634718 1 Capsule(s) PO QD replaces amlodopine 12/09/2013 03/07/2014 Inactive [[facility] -- BIN:589969, PCN: [id number], Group: [id number], ID# [id number], Process claim through MedImpact, for questions: . THIS IS NOT INSURANCE.] acyclovir 800 mg tablet RxNorm: 937203 1 Tablet(s) PO QID 09/23/2013 09/29/2013 Inactive gabapentin 300 mg capsule RxNorm: 135919 1 Capsule(s) PO BID 201310/07/2013 Inactive metformin ER 500 mg tablet,extended release 24 hr RxNorm: 86 0975 1 Tablet(s) PO QD 09/19/2013 12/14/2013 Inactive propranolol ER 80 mg capsule,24 hr,extended release RxNorm: 079607 1 Capsule(s) PO QD replaces amlodopine 09/15/2013 12/09/2013 Inactive metformin ER 500 mg 24 hr tablet,extended release RxNorm: 86 0975 1 Tablet(s) PO QD 09/15/2013 09/18/2013 Inactive lisinopril 40 mg tablet RxNorm: 702231 1 Tablet(s) PO QD 07/19/2013 0 07/14/2014 Inactive Crestor 10 mg tablet RxNorm: 512340 Tablet(s) PO TAKE O NE TABLET BY MOUTH EVERY DAY 07/12/2013 07/05/2014 Inactive propranolol ER 80 mg capsule,24 hr,extended release RxNorm: 906032 1 Capsule(s) PO QD replaces amlodopine 06/20/2013 09/15/2013 Inactive triamcinolone acetonide 0.1 % topical ointment RxNorm: 75639 36 Application TOP BID 06/20/2013 06/26/2013 Inactive Crestor 10 mg tablet RxNorm: 696613 1 Tablet(s) PO QD 04/18/201310/2013 Inactive Viagra 100 mg tablet RxNorm: 196376 1 Tablet(s) PO as directed 01/0508/18/2018 Inactive TAKE ONE TABLET BY MOUTH DIRECTED Crestor 10 mg tablet RxNorm: 937075 1 Tablet(s) PO QD 01/17/201304/06 Inactive metformin ER 500 mg tablet,extended release 24 hr RxNorm: 86 0975 1 Tablet(s) PO QD TAKE ONE TABLET BY MOUTH EVERY DAY 12/23/2012 09/15/2013 Inactive triamcinolone acetonide 0.1 % topical ointment RxNorm: 88204 36 Application TOP BID 08/27/2012 09/02/2012 Inactive ketoconazole 2 % topical cream RxNorm: 635474 1 Application TOP QAM 08/27/2012 09/02/2012 Inactive lisinopril 40 mg tablet RxNorm: 832000 1 Tablet(s) PO QD 07/21/2012 0 07/15/2013 Inactive Crestor 10 mg tablet RxNorm: 893261 1 Tablet(s) PO QD 07/21/201210/04 Inactive amlodipine 10 mg tablet RxNorm: 028544 1 Tablet(s) PO QHS 07/21/2012 07/15/2013 Inactive metformin ER 500 mg tablet,extended release 24 hr RxNorm: 86 0977 Tablet(s) PO TAKE ONE TABLET BY MOUTH EVERY DAY 03/31/2012 12/22/2012 Inactive lisinopril 40 mg tablet RxNorm: 504799 1 Tablet(s) PO QD 07/29/2011 0 07/20/2012 Inactive amlodipine 10 mg tablet RxNorm: 081717 1 Tablet(s) PO QHS 07/29/2011 07/20/2012 Inactive amlodipine 10 mg Tab RxNorm: 540565 1 Tablet(s) PO QHS 07/29/2011 Inactive Viagra 100 mg tablet RxNorm: 675849 1 Tablet(s) PO as directed 07/0601/24/2013 Inactive TAKE ONE TABLET BY MOUTH DIRECTED Crestor 10 mg tablet RxNorm: 553770 1 Tablet(s) PO QD 07/29/201107/05 Inactive Norvasc 5 mg Tab RxNorm: 717133 1 Tablet(s) PO QD 07/16/2011 07/28/19 12 Inactive Norvasc 5 mg Tab RxNorm: 409903 1 Tablet(s) PO QD 06/26/2011 07/15/19 12 Inactive lisinopril 40 mg Tab RxNorm: 008828 1 Tablet(s) PO QD 05/13/201107/06 Inactive metformin ER 500 mg tablet,extended release 24 hr RxNorm: 86 0977 1 Tablet(s) PO QD 03/18/2011 07/28/2011 Inactive Crestor 10 mg Tab RxNorm: 311853 1 Tablet(s) PO QHS 01/27/20112011 Inactive metformin ER 500 mg 24 hr Tab RxNorm: 525003 1 Tablet(s) PO QD 11/0403/17/2011 Inactive Viagra 100 mg Tab RxNorm: 640457 Tablet(s) PO TAKE ON E TABLET BY MOUTH DIRECTED 08/26/2010 07/28/2011 Inactive metformin ER 500 mg 24 hr Tab RxNorm: 479845 1 Tablet(s) PO QD 07/0611/18/2010 Inactive Crestor 10 mg Tab RxNorm: 473693 1 Tablet(s) PO QHS 07/30/20102010 Inactive Crestor 10 mg Tab RxNorm: 824973 1 Tablet(s) PO QHS 05/20/20102010 Inactive Wellbutrin SR 150 mg Tab RxNorm: 324277 1 Tablet(s) PO QAM 04/24/19 11 07/22/2010 Inactive Multivitamin And Mineral tablet RxNorm: 1 Tablet(s) PO QD No Start Date Active FreeStyle Lite Strips RxNorm: 1 Unit Dose Miscel laneous AC & HS check blood sugar AC and HS No Start Date Active Co Q-10 200 mg capsule RxNorm: 656947 1 Capsule(s) PO QD No Start Date Active lancets RxNorm: 1 Milliliter(s) Miscellaneous AC & HS No Start Robert e Active Vitamin D3 4,000 unit capsule RxNorm: 0305160 1 Capsule(s) PO QD No Start Date 07/08/2016 Inactive Fish Oil 360 mg-1,200 mg capsule RxNorm: 337287 2 Capsule(s) PO QD No Start Date 01/30/2019 Inactive hydrocodone 5 mg-acetaminophen 325 mg tablet RxNorm: 402634 1 Tablet(s) PO Q4H as needed for severe pain No Start Date 12/30/2015 Inactive Xanax 0.25 mg tablet RxNorm: 833175 1/2 Tablet(s) PO PRN for se andrea stress No Start Date 07/08/2016 Inactive lisinopril 40 mg Tab RxNorm: 271828 1 Tablet(s) PO QD No Start Date 0 05/12/2011 Inactive Fish Oil 1,000 mg capsule RxNorm: 1 Capsule(s) PO QD No Start Date 09/18/2014 Inactive naproxen 500 mg Tab RxNorm: 078657 1 Tablet(s) PO BID No Start Date 0 07/28/2011 Inactive aspirin 81 mg tablet RxNorm: 062295 1 Tablet(s) PO QD No Start Date 0 05/09/2018 Inactive Crestor 10 mg Tab RxNorm: 016706 1 Tablet(s) PO QD No Start Date 07/06 Inactive Crestor 5 mg tablet RxNorm: 822492 1 Tablet(s) PO QD No Start Date Inactive Fish Oil Oral RxNorm: Oral No Start Date 09/18/2014 Inactive Viagra 100 mg Tab RxNorm: 320777 1 Tablet(s) PO as directed No Star [...] Date S vic Location GLYCOSYLATED HEMOGLOBIN TEST 37852 Hgb A1c 84274-5 6.7 % 0 05/24/2019 Unknown COMPREHENSIVE METABOLIC 35464 AST 21 U/L 2019 Unknown COMPREHENSIVE METABOLIC 98886 ALT 26 U/L 2019 Unknown COMPREHENSIVE METABOLIC 57043 BUN 14 mg/dL 2019 Unknown COMPREHENSIVE METABOLIC 28257 ALBUMIN 4.4 g/dL 2019 Unknown COMPREHENSIVE METABOLIC 75892 CHLORIDE 102 mmol/L 05/24 Unknown COMPREHENSIVE METABOLIC 74509 Bili Total 0.4 mg/dL 05/24 Unknown COMPREHENSIVE METABOLIC 47677 ALK PHOS 55 U/L 2019 Unknown COMPREHENSIVE METABOLIC 91143 SODIUM 139 mmol/L 05/24 Unknown COMPREHENSIVE METABOLIC 13649 CREATININE 1.28 mg/dL 05/07 Unknown COMPREHENSIVE METABOLIC 39152 CALCIUM 9.7 mg/dL 2019 Unknown COMPREHENSIVE METABOLIC 79265 POTASSIUM 4.7 mmol/L 05/24 Unknown COMPREHENSIVE METABOLIC 94346 Total Protein 6.8 g/dL Unknown COMPREHENSIVE METABOLIC 25930 Glucose 130 mg/dL 2019 Unknown COMPREHENSIVE METABOLIC 64738 Bicarbonate 29 mmol/L 05/07 Unknown COMPREHENSIVE METABOLIC 74612 AGAP 8 mmol/L 2019 Unknown MEAN GLUC 7411335 Calc Mean Gluc 146 mg/dL 05/24/2019 Unkn own GFR CALC [id number] GFR Afr Amr >60 mL/min 05/24/2019 Unknow n GFR CALC 0475086 GFR Non Afr Amr 56 mL/min 05/24/2019 Unk nown MEAN GLUC 7639415 Calc Mean Gluc 140 mg/dL 01/26/2019 Unkn own GLYCOSYLATED HEMOGLOBIN TEST 36517 Hgb A1c 40609-9 6.5 % 1 Unknown COMPREHENSIVE METABOLIC 01505 AST 17 U/L 2018 Unknown COMPREHENSIVE METABOLIC 09469 ALT 19 U/L 2018 Unknown COMPREHENSIVE METABOLIC 99147 BUN 19 mg/dL 2018 Unknown COMPREHENSIVE METABOLIC 69482 ALBUMIN 4.3 g/dL 2018 Unknown COMPREHENSIVE METABOLIC 15735 CHLORIDE 103 mmol/L 01/26 Unknown COMPREHENSIVE METABOLIC 17148 Bili Total 0.6 mg/dL 01/26 Unknown COMPREHENSIVE METABOLIC 06811 ALK PHOS 60 U/L 2018 Unknown COMPREHENSIVE METABOLIC 67047 SODIUM 140 mmol/L 01/26 Unknown COMPREHENSIVE METABOLIC 75899 CREATININE 1.21 mg/dL 01/05 Unknown COMPREHENSIVE METABOLIC 11825 CALCIUM 9.6 mg/dL 2018 Unknown COMPREHENSIVE METABOLIC 54570 POTASSIUM 4.5 mmol/L 01/26 Unknown COMPREHENSIVE METABOLIC 81862 Total Protein 6.7 g/dL Unknown COMPREHENSIVE METABOLIC 30168 Glucose 111 mg/dL 2018 Unknown COMPREHENSIVE METABOLIC 44604 Bicarbonate 28 mmol/L 01/05 Unknown COMPREHENSIVE METABOLIC 34885 AGAP 9 mmol/L 2018 Unknown COMPLETE BLOOD COUNT [id number] WBC 10.7 10e9/L 019 Unknown COMPLETE BLOOD COUNT 5689473 RBC 4.38 10e12/L 2018 Unknown COMPLETE BLOOD COUNT 6288180 HEMOGLOBIN 13.7 g/dL 01/27/20 19 Unknown COMPLETE BLOOD COUNT 0853679 HEMATOCRIT 42.0 % 01/27/20 19 Unknown COMPLETE BLOOD COUNT [id number] MCV 95.9 fL 9 Unknown COMPLETE BLOOD COUNT [id number] MCH 31.3 pg 9 Unknown COMPLETE BLOOD COUNT 9561272 MCHC 32.6 g/dL 9 Unknown COMPLETE BLOOD COUNT 4111177 PLATELET COUNT 232 10e9/L Unknown COMPLETE BLOOD COUNT 1237371 Mean Plt Volume 11.4 fL Unknown COMPLETE BLOOD COUNT 4809996 Neut Auto 68.7 % 9 Unknown COMPLETE BLOOD COUNT 8885017 Lymph Auto 21.2 % 01/27/20 19 Unknown COMPLETE BLOOD COUNT [id number] [place] Auto 8.1 % 9 Unknown COMPLETE BLOOD COUNT 3003019 RDW 14.1 % 9 Unknown COMPLETE BLOOD COUNT 8153418 Eos Auto 1.8 % 9 Unknown COMPLETE BLOOD COUNT [id number] Baso Auto 0.2 % 9 Unknown COMPLETE BLOOD COUNT [id number] Neutrophil Abs 7.35 10e9/L Unknown COMPLETE BLOOD COUNT [id number] Lymphocyte Abs 2.27 10e9/L Unknown COMPLETE BLOOD COUNT [id number] Monocyte Abs 0.87 10e9/L 01/05 Unknown COMPLETE BLOOD COUNT [id number] Eosinophil Abs 0.19 10e9/L Unknown COMPLETE BLOOD COUNT [id number] Basophil Abs 0.02 10e9/L 01/05 Unknown COMPLETE BLOOD COUNT [id number] RDW-SD 47.7 fL 9 Unknown GFR CALC 6541535 GFR Non Afr Amr 59 mL/min 01/26/2019 Unk nown GFR CALC [id number] GFR Afr Amr >60 mL/min 01/26/2019 Unknow n LIPID GROUP 01420 Cholesterol 215 mg/dL 01/26/2019 Unkno wn LIPID GROUP 30148 Triglyceride 221 mg/dL 01/26/2019 Unkn own L[facility] GROUP 24178 HDL CHOLESTEROL 41 mg/dL 01/26/2019 U nknown LIPID GROUP 05056 Chol/HDL Ratio 5.24 ratio 01/26/2019 U nknown LIPID GROUP 83481 NON-HDL Chol 174 mg/dL 01/26/2019 Unkn own LIP[facility] GROUP 52028 LDL Cholesterol 130 mg/dL 01/26/2019 [place] [address] Glucose 104 mg/dL 09/30 [place] [address] CREATININE 1.18 mg/dL [place] [address] BUN 19 mg/dL 09/30 [place] [address] SODIUM 139 mmol/L 09/05 [place] [address] POTASSIUM 4.1 mmol/L 09/05 [place] [address] CHLORIDE 105 mmol/L 09/05 [place] [address] Bicarbonate 26 mmol/L [place] [address] AGAP 8 mmol/L 09/30 [place] [address] CALCIUM 9.3 mg/dL 09/30 Unknown GFR CALC 0443393 GFR Afr Amr >60 mL/min 09/30/2018 Unknow n GFR CALC 6684788 GFR Non Afr Amr >60 mL/min 09/30/2018 Un known MICROALBUMIN URINE RANDOM 82234 U Microalbumin <2.0 mg/L 08/19/2018 Unknown MICROALBUMIN URINE RANDOM 11248 U Creatinine 66 mg/dL 0 08/19/2018 Unknown MICROALBUMIN URINE RANDOM 78478 ALB/CR Ratio <3.0 mg/gCR 08/19/2018 Unknown COMPREHENSIVE METABOLIC 92587 AST 21 U/L 2018 Unknown COMPREHENSIVE METABOLIC 96060 ALT 20 U/L 2018 Unknown COMPREHENSIVE METABOLIC 53871 BUN 31 mg/dL 2018 Unknown COMPREHENSIVE METABOLIC 86216 ALBUMIN 4.4 g/dL 2018 Unknown COMPREHENSIVE METABOLIC 05669 CHLORIDE 105 mmol/L 08/16 Unknown COMPREHENSIVE METABOLIC 05123 Bili Total 0.5 mg/dL 08/16 Unknown COMPREHENSIVE METABOLIC 32769 ALK PHOS 40 U/L 2018 Unknown COMPREHENSIVE METABOLIC 93030 SODIUM 140 mmol/L 08/16 Unknown COMPREHENSIVE METABOLIC 46949 CREATININE 1.45 mg/dL 08/04 Unknown COMPREHENSIVE METABOLIC 49320 CALCIUM 9.8 mg/dL 2018 Unknown COMPREHENSIVE METABOLIC 97474 POTASSIUM 5.1 mmol/L 08/16 Unknown COMPREHENSIVE METABOLIC 39505 Total Protein 6.9 g/dL Unknown COMPREHENSIVE METABOLIC 44187 Glucose 110 mg/dL 2018 Unknown COMPREHENSIVE METABOLIC 45213 Bicarbonate 25 mmol/L 08/04 Unknown COMPREHENSIVE METABOLIC 27552 AGAP 10 mmol/L 2018 Unknown GFR CALC 9044911 GFR Afr Amr 58 mL/min 08/16/2018 Unknown GFR CALC 6744791 GFR Non Afr Amr 48 mL/min 08/16/2018 Unk nown GLYCOSYLATED HEMOGLOBIN TEST 90112 Hgb A1c 34962-5 5.9 % 0 08/16/2018 Unknown L[facility] GROUP 07482 Cholesterol 226 mg/dL 08/16/2018 Unkno wn LIPID GROUP 45982 Triglyceride 335 mg/dL 08/16/2018 Unkn own LIP[facility] GROUP 29674 HDL CHOLESTEROL 32 mg/dL 08/16/2018 U nknown LIPID GROUP 92001 Chol/HDL Ratio 7.06 ratio 08/16/2018 U nknown LIPID GROUP 96799 NON-HDL Chol 194 mg/dL 08/16/2018 Unkn own LIP[facility] GROUP 88482 LDL Cholesterol 127 mg/dL 08/16/2018 U nknown THYROID STIMULATING HORMONE 39396 TSH 2.475 uIU/mL 08/16/2018 Unknown COMPLETE BLOOD COUNT [id number] WBC 7.5 10e9/L 08/17/19 19 Unknown COMPLETE BLOOD COUNT [id number] RBC 4.09 10e12/L 2018 Unknown COMPLETE BLOOD COUNT 6756908 HEMOGLOBIN 12.9 g/dL 08/17/19 19 Unknown COMPLETE BLOOD COUNT 7899616 HEMATOCRIT 40.0 % 08/17/19 19 Unknown COMPLETE BLOOD COUNT 7385741 MCV 97.8 fL 9 Unknown COMPLETE BLOOD COUNT 0495763 MCH 31.5 pg 9 Unknown COMPLETE BLOOD COUNT 1786181 MCHC 32.3 g/dL 9 Unknown COMPLETE BLOOD COUNT 8413621 PLATELET COUNT 258 10e9/L Unknown COMPLETE BLOOD COUNT 9404150 Mean Plt Volume 11.4 fL Unknown COMPLETE BLOOD COUNT 5248908 Neut Auto 62.9 % 9 Unknown COMPLETE BLOOD COUNT 3998747 Lymph Auto 27.3 % 08/17/19 19 Unknown COMPLETE BLOOD COUNT 7991552 [place] Auto 8.2 % 9 Unknown COMPLETE BLOOD COUNT 7639685 RDW 13.3 % 9 Unknown COMPLETE BLOOD COUNT 6163798 Eos Auto 1.5 % 9 Unknown COMPLETE BLOOD COUNT 8374450 Baso Auto 0.1 % 9 Unknown COMPLETE BLOOD COUNT 9746452 Neutrophil Abs 4.72 10e9/L Unknown COMPLETE BLOOD COUNT [id number] Lymphocyte Abs 2.05 10e9/L Unknown COMPLETE BLOOD COUNT [id number] Monocyte Abs 0.62 10e9/L 08/04 Unknown COMPLETE BLOOD COUNT [id number] Eosinophil Abs 0.11 10e9/L Unknown COMPLETE BLOOD COUNT [id number] Basophil Abs 0.01 10e9/L 08/04 Unknown COMPLETE BLOOD COUNT [id number] RDW-SD 46.7 fL 9 Unknown MEAN GLUC [id number] Calc Mean Gluc 123 mg/dL 08/16/2018 Unkn own [facility] 79551 Cholesterol 212 mg/dL 05/05/2018 Unkno wn [facility] 13032 Triglyceride 271 mg/dL 05/05/2018 Unkn own [facility] 29349 HDL CHOLESTEROL 38 mg/dL 05/05/2018 U nknown [facility] 10518 Chol/HDL Ratio 5.58 ratio 05/05/2018 U nknown [facility] 93832 NON-HDL Chol 174 mg/dL 05/05/2018 Unkn own [facility] 18481 LDL Cholesterol 120 mg/dL 05/05/2018 U nknown GFR CALC [id number] GFR Non Afr Amr 49 mL/min 05/05/2018 Unk nown GFR CALC [id number] GFR Afr Amr 59 mL/min 05/05/2018 Unknown GLYCOSYLATED HEMOGLOBIN TEST 93532 Hgb A1c 91285-7 6.0 % 0 05/05/2018 Unknown MEAN GLUC [id number] Calc Mean Gluc 126 mg/dL 05/05/2018 Unkn own COMPREHENSIVE METABOLIC 25141 AST 18 U/L 2018 Unknown COMPREHENSIVE METABOLIC 93784 ALT 23 U/L 2018 Unknown COMPREHENSIVE METABOLIC 52540 BUN 30 mg/dL 2018 Unknown COMPREHENSIVE METABOLIC 91749 ALBUMIN 4.3 g/dL 2018 Unknown COMPREHENSIVE METABOLIC 28876 CHLORIDE 106 mmol/L 05/05 Unknown COMPREHENSIVE METABOLIC 33373 Bili Total 0.4 mg/dL 05/05 Unknown COMPREHENSIVE METABOLIC 05386 ALK PHOS 39 U/L 2018 Unknown COMPREHENSIVE METABOLIC 87781 SODIUM 139 mmol/L 05/05 Unknown COMPREHENSIVE METABOLIC 98586 CREATININE 1.44 mg/dL 04/08 Unknown COMPREHENSIVE METABOLIC 24717 CALCIUM 9.6 mg/dL 2018 Unknown COMPREHENSIVE METABOLIC 75037 POTASSIUM 4.7 mmol/L 05/05 Unknown COMPREHENSIVE METABOLIC 45097 Total Protein 6.6 g/dL Unknown COMPREHENSIVE METABOLIC 95087 Glucose 112 mg/dL 2018 Unknown COMPREHENSIVE METABOLIC 38946 Bicarbonate 28 mmol/L 04/08 Unknown COMPREHENSIVE METABOLIC 79119 AGAP 5 mmol/L 2018 Unknown THYROID STIMULATING HORMONE 39132 TSH 3.725 uIU/mL 05/05/2018 Unknown COMPLETE BLOOD COUNT [id number] WBC 8.2 10e9/L 05/05/19 19 Unknown COMPLETE BLOOD COUNT [id number] RBC 4.02 10e12/L 2018 Unknown COMPLETE BLOOD COUNT [id number] HEMOGLOBIN 12.7 g/dL 05/05/19 19 Unknown COMPLETE BLOOD COUNT [id number] HEMATOCRIT 39.3 % 05/05/19 19 Unknown COMPLETE BLOOD COUNT [id number] MCV 97.8 fL 9 Unknown COMPLETE BLOOD COUNT 9968503 MCH 31.6 pg 9 Unknown COMPLETE BLOOD COUNT [id number] MCHC 32.3 g/dL 9 Unknown COMPLETE BLOOD COUNT [id number] PLATELET COUNT 213 10e9/L Unknown COMPLETE BLOOD COUNT 5091116 Mean Plt Volume 11.7 fL Unknown COMPLETE BLOOD COUNT 1154399 Neut Auto 55.7 % 9 Unknown COMPLETE BLOOD COUNT [id number] Lymph Auto 33.2 % 05/05/19 19 Unknown COMPLETE BLOOD COUNT [id number] [place] Auto 8.5 % 9 Unknown COMPLETE BLOOD COUNT 0115654 Eos Auto 2.4 % 9 Unknown COMPLETE BLOOD COUNT [id number] RDW 13.9 % 9 Unknown COMPLETE BLOOD COUNT 1100563 Baso Auto 0.2 % 9 Unknown COMPLETE BLOOD COUNT 0458147 Neutrophil Abs 4.57 10e9/L Unknown COMPLETE BLOOD COUNT [id number] Lymphocyte Abs 2.72 10e9/L Unknown COMPLETE BLOOD COUNT [id number] Monocyte Abs 0.70 10e9/L 04/08 Unknown COMPLETE BLOOD COUNT [id number] Eosinophil Abs 0.20 10e9/L Unknown COMPLETE BLOOD COUNT [id number] RDW-SD 48.8 fL 9 Unknown COMPLETE BLOOD COUNT [id number] Basophil Abs 0.02 10e9/L 04/08 Unknown MICROALBUMIN URINE RANDOM 12275 U Microalbumin 19.3 mg/L 01/19/2018 Unknown MICROALBUMIN URINE RANDOM 09641 U Creatinine 96 mg/dL 1 Unknown MICROALBUMIN URINE RANDOM 16405 ALB/CR Ratio 20.1 mg/gCR 01/19/2018 Unknown LIPID GROUP 99723 Cholesterol 173 mg/dL 01/13/2018 Unkno wn LIPID GROUP 19060 Triglyceride 386 mg/dL 01/13/2018 Unkn own LIPID GROUP 40229 HDL CHOLESTEROL 37 mg/dL 01/13/2018 U nknown LIPID GROUP 34712 Chol/HDL Ratio 4.68 ratio 01/13/2018 U nknown LIPID GROUP 40792 NON-HDL Chol 136 mg/dL 01/13/2018 Unkn own LIPID GROUP 50747 LDL Cholesterol 59 mg/dL 01/13/2018 U nknown COMPLETE BLOOD COUNT [id number] WBC TNP:Client Request 01/13/2018 Unknown COMPLETE BLOOD COUNT 1195994 RBC TNP:Client Request 01/13/2018 Unknown COMPLETE BLOOD COUNT [id number] HEMOGLOBIN TNP:Client Request 01/13/2018 Unknown COMPLETE BLOOD COUNT [id number] HEMATOCRIT TNP:Client Request 01/13/2018 Unknown COMPLETE BLOOD COUNT [id number] MCV TNP:Client Request 01/13/2018 Unknown COMPLETE BLOOD COUNT [id number] MCH TNP:Client Request 01/13/2018 Unknown COMPLETE BLOOD COUNT [id number] MCHC TNP:Client Request 01/13/2018 Unknown COMPLETE BLOOD COUNT [id number] PLATELET COUNT TNP:Client Req uest 01/13/2018 Unknown COMPLETE BLOOD COUNT [id number] Mean Plt Volume TNP:Client Re quest 01/13/2018 Unknown COMPLETE BLOOD COUNT [id number] Neut Auto TNP:Client Request 01/13/2018 Unknown COMPLETE BLOOD COUNT [id number] Lymph Auto TNP:Client Request 01/13/2018 Unknown COMPLETE BLOOD COUNT [id number] [place] Auto TNP:Client Request 01/13/2018 Unknown COMPLETE BLOOD COUNT [id number] RDW TNP:Client Request 01/13/2018 Unknown COMPLETE BLOOD COUNT [id number] Eos Auto TNP:Client Request 01/13/2018 Unknown COMPLETE BLOOD COUNT [id number] Baso Auto TNP:Client Request 01/13/2018 Unknown COMPLETE BLOOD COUNT [id number] Neutrophil Abs TNP:Client Req uest 01/13/2018 Unknown COMPLETE BLOOD COUNT [id number] Lymphocyte Abs TNP:Client Req uest 01/13/2018 Unknown COMPLETE BLOOD COUNT [id number] Monocyte Abs TNP:Client Reque st 01/13/2018 Unknown COMPLETE BLOOD COUNT [id number] Eosinophil Abs TNP:Client Req uest 01/13/2018 Unknown COMPLETE BLOOD COUNT [id number] RDW-SD TNP:Client Request 01/13/2018 Unknown COMPLETE BLOOD COUNT [id number] Basophil Abs TNP:Client Reque st 01/13/2018 Unknown GLYCOSYLATED HEMOGLOBIN TEST 82778 Hgb A1c 52490-5 6.2 % 1 Unknown THYROID STIMULATING HORMONE 31284 TSH 2.764 uIU/mL 01/13/2018 Unknown COMPREHENSIVE METABOLIC 73263 AST 19 U/L 2017 Unknown COMPREHENSIVE METABOLIC 85700 ALT 21 U/L 2017 Unknown COMPREHENSIVE METABOLIC 22425 BUN 16 mg/dL 2017 Unknown COMPREHENSIVE METABOLIC 23595 ALBUMIN 4.2 g/dL 2017 Unknown COMPREHENSIVE METABOLIC 06454 CHLORIDE 105 mmol/L 01/13 Unknown COMPREHENSIVE METABOLIC 70661 Bili Total 0.5 mg/dL 01/13 Unknown COMPREHENSIVE METABOLIC 80195 ALK PHOS 85 U/L 2017 Unknown COMPREHENSIVE METABOLIC 29268 SODIUM 139 mmol/L 01/13 Unknown COMPREHENSIVE METABOLIC 43592 CREATININE 1.07 mg/dL 01/04 Unknown COMPREHENSIVE METABOLIC 50108 CALCIUM 9.2 mg/dL 2017 Unknown COMPREHENSIVE METABOLIC 97361 POTASSIUM 4.4 mmol/L 01/13 Unknown COMPREHENSIVE METABOLIC 75586 Total Protein 7.7 g/dL Unknown COMPREHENSIVE METABOLIC 07546 Glucose 130 mg/dL 2017 Unknown COMPREHENSIVE METABOLIC 90889 Bicarbonate 27 mmol/L 01/04 Unknown COMPREHENSIVE METABOLIC 76947 AGAP 7 mmol/L 2017 Unknown PSA EQUIMOLAR JERSON 85301 PSA Total 1.16 ng/mL 8 Unknown MEAN GLUC 5731149 Calc Mean Gluc 131 mg/dL 01/13/2018 Unkn own GFR CALC 1526833 GFR Non Afr Amr >60 mL/min 01/13/2018 Un known GFR CALC 4642987 GFR Afr Amr >60 mL/min 01/13/2018 Unknow n MEAN GLUC 4333475 Calc Mean Gluc 134 mg/dL 10/06/2017 Unkn own GFR CALC 3667239 GFR Non Afr Amr >60 mL/min 10/06/2017 Un known GFR CALC 8604966 GFR Afr Amr >60 mL/min 10/06/2017 Unknow n GLYCOSYLATED HEMOGLOBIN TEST 99865 Hgb A1c 27058-0 6.3 % 0 10/06/2017 Unknown VITAMIN B 12 72429 VITAMIN B12 1202 pg/mL 10/06/2017 Unk nown COMPLETE BLOOD COUNT 0035752 WBC 7.4 10e9/L 10/07/19 18 Unknown COMPLETE BLOOD COUNT [id number] RBC 4.24 10e12/L 2017 Unknown COMPLETE BLOOD COUNT [id number] HEMOGLOBIN 13.5 g/dL 10/07/19 18 Unknown COMPLETE BLOOD COUNT 5595807 HEMATOCRIT 41.6 % 10/07/19 18 Unknown COMPLETE BLOOD COUNT 6530388 MCV 98.1 fL 8 Unknown COMPLETE BLOOD COUNT 1885694 MCH 31.8 pg 8 Unknown COMPLETE BLOOD COUNT 2381938 MCHC 32.5 g/dL 8 Unknown COMPLETE BLOOD COUNT [id number] PLATELET COUNT 223 10e9/L 06/2017 Unknown COMPLETE BLOOD COUNT 3592007 Mean Plt Volume 11.9 fL 06/2017 Unknown COMPLETE BLOOD COUNT 2459770 Neut Auto 58.0 % 8 Unknown COMPLETE BLOOD COUNT 3516077 Lymph Auto 29.7 % 10/07/19 18 Unknown COMPLETE BLOOD COUNT 6691557 [place] Auto 8.3 % 8 Unknown COMPLETE BLOOD COUNT 2911257 Eos Auto 3.7 % 8 Unknown COMPLETE BLOOD COUNT 9115478 RDW 14.0 % 8 Unknown COMPLETE BLOOD COUNT 6232123 Baso Auto 0.3 % 8 Unknown COMPLETE BLOOD COUNT 0737449 Neutrophil Abs 4.29 10e9/L Unknown COMPLETE BLOOD COUNT [id number] Lymphocyte Abs 2.20 10e9/L Unknown COMPLETE BLOOD COUNT [id number] Monocyte Abs 0.61 10e9/L 06/2017 Unknown COMPLETE BLOOD COUNT [id number] Eosinophil Abs 0.27 10e9/L Unknown COMPLETE BLOOD COUNT [id number] Basophil Abs 0.02 10e9/L 06/2017 Unknown COMPLETE BLOOD COUNT 7557610 RDW-SD 48.6 fL 8 Unknown LIPID GROUP 47430 Cholesterol 216 mg/dL 10/06/2017 Unkno wn LIPID GROUP 10133 Triglyceride 335 mg/dL 10/06/2017 Unkn own LIPID GROUP 12093 HDL CHOLESTEROL 33 mg/dL 10/06/2017 U nknown LIPID GROUP 88493 Chol/HDL Ratio 6.55 ratio 10/06/2017 U nknown LIPID GROUP 47762 NON-HDL Chol 183 mg/dL 10/06/2017 Unkn own LIPID GROUP 85877 LDL Cholesterol 116 mg/dL 10/06/2017 U nknown COMPREHENSIVE METABOLIC 16426 AST 15 U/L 2017 Unknown COMPREHENSIVE METABOLIC 61653 ALT 15 U/L 2017 Unknown COMPREHENSIVE METABOLIC 78226 BUN 21 mg/dL 2017 Unknown COMPREHENSIVE METABOLIC 42841 ALBUMIN 4.1 g/dL 2017 Unknown COMPREHENSIVE METABOLIC 75162 CHLORIDE 107 mmol/L 10/06 Unknown COMPREHENSIVE METABOLIC 33802 Bili Total 0.6 mg/dL 10/06 Unknown COMPREHENSIVE METABOLIC 63748 ALK PHOS 68 U/L 2017 Unknown COMPREHENSIVE METABOLIC 44379 SODIUM 140 mmol/L 10/06 Unknown COMPREHENSIVE METABOLIC 39782 CREATININE 1.12 mg/dL 06/2017 Unknown COMPREHENSIVE METABOLIC 57587 CALCIUM 9.7 mg/dL 2017 Unknown COMPREHENSIVE METABOLIC 62596 POTASSIUM 4.6 mmol/L 10/06 Unknown COMPREHENSIVE METABOLIC 61252 Total Protein 6.6 g/dL Unknown COMPREHENSIVE METABOLIC 26079 Glucose 114 mg/dL 2017 Unknown COMPREHENSIVE METABOLIC 21882 Bicarbonate 26 mmol/L 06/2017 Unknown COMPREHENSIVE METABOLIC 01837 AGAP 7 mmol/L 2017 Unknown GLYCOSYLATED HEMOGLOBIN TEST 03699 Hgb A1c 30906-6 6.1 % 1 05/05/2016 Unknown GFR CALC 6374354 GFR Non Afr Amr >60 mL/min 03/05/2017 Un known GFR CALC 6451058 GFR Afr Amr >60 mL/min 03/05/2017 Unknow n MEAN GLUC 8361126 Calc Mean Gluc 128 mg/dL 03/05/2017 Unkn own COMPREHENSIVE METABOLIC 80425 AST 18 U/L 2016 Unknown COMPREHENSIVE METABOLIC 53357 ALT 20 U/L 2016 Unknown COMPREHENSIVE METABOLIC 83284 BUN 15 mg/dL 2016 Unknown COMPREHENSIVE METABOLIC 80717 ALBUMIN 4.3 g/dL 2016 Unknown COMPREHENSIVE METABOLIC 95250 CHLORIDE 105 mmol/L 03/05 Unknown COMPREHENSIVE METABOLIC 69204 Bili Total 0.5 mg/dL 03/05 Unknown COMPREHENSIVE METABOLIC 62158 ALK PHOS 57 U/L 2016 Unknown COMPREHENSIVE METABOLIC 20116 SODIUM 141 mmol/L 03/05 Unknown COMPREHENSIVE METABOLIC 22730 CREATININE 1.07 mg/dL 02/06 Unknown COMPREHENSIVE METABOLIC 67957 CALCIUM 9.3 mg/dL 2016 Unknown COMPREHENSIVE METABOLIC 50797 POTASSIUM 4.8 mmol/L 03/05 Unknown COMPREHENSIVE METABOLIC 70740 Total Protein 6.2 g/dL Unknown COMPREHENSIVE METABOLIC 04258 Glucose 118 mg/dL 2016 Unknown COMPREHENSIVE METABOLIC 84286 Bicarbonate 29 mmol/L 02/06 Unknown COMPREHENSIVE METABOLIC 66535 AGAP 7 mmol/L 2016 Unknown FREE T4 53100 T4 Free 1.38 ng/dL 03/05/2017 Unknown COMPLETE BLOOD COUNT 8140719 WBC 8.4 10e9/L 03/05/20 17 Unknown COMPLETE BLOOD COUNT 0578047 RBC 4.11 10e12/L 2016 Unknown COMPLETE BLOOD COUNT 5876947 HEMOGLOBIN 12.8 g/dL 03/05/20 17 Unknown COMPLETE BLOOD COUNT 7553403 HEMATOCRIT 40.1 % 03/05/20 17 Unknown COMPLETE BLOOD COUNT 0604656 MCV 97.6 fL 7 Unknown COMPLETE BLOOD COUNT 1424581 MCH 31.1 pg 7 Unknown COMPLETE BLOOD COUNT 1062340 MCHC 31.9 g/dL 7 Unknown COMPLETE BLOOD COUNT 1548071 PLATELET COUNT 184 10e9/L Unknown COMPLETE BLOOD COUNT 4412312 Mean Plt Volume 11.3 fL Unknown COMPLETE BLOOD COUNT 5610364 Neut Auto 62.5 % 7 Unknown COMPLETE BLOOD COUNT 4442175 Lymph Auto 26.4 % 03/05/20 17 Unknown COMPLETE BLOOD COUNT 6014497 [place] Auto 7.9 % 7 Unknown COMPLETE BLOOD COUNT 9953253 RDW 13.5 % 7 Unknown COMPLETE BLOOD COUNT 5868698 Eos Auto 3.0 % 7 Unknown COMPLETE BLOOD COUNT 6272783 Baso Auto 0.2 % 7 Unknown COMPLETE BLOOD COUNT 1436286 Neutrophil Abs 5.25 10e9/L Unknown COMPLETE BLOOD COUNT [id number] Lymphocyte Abs 2.22 10e9/L Unknown COMPLETE BLOOD COUNT 8248187 Monocyte Abs 0.66 10e9/L 02/06 Unknown COMPLETE BLOOD COUNT 1527421 Eosinophil Abs 0.25 10e9/L Unknown COMPLETE BLOOD COUNT 8235818 RDW-SD 46.7 fL 7 Unknown COMPLETE BLOOD COUNT 3123074 Basophil Abs 0.02 10e9/L 02/06 Unknown THYROID STIMULATING HORMONE 61606 TSH 2.330 uIU/mL 03/05/2017 Unknown LIPID GROUP 71350 Cholesterol 135 mg/dL 03/05/2017 Unkno wn LIPID GROUP 17900 Triglyceride 297 mg/dL 03/05/2017 Unkn own LIPID GROUP 43203 HDL CHOLESTEROL 34 mg/dL 03/05/2017 U nknown LIPID GROUP 03448 Chol/HDL Ratio 3.97 ratio 03/05/2017 U nknown LIPID GROUP 51696 NON-HDL Chol 101 mg/dL 03/05/2017 Unkn own LIPID GROUP 74455 LDL Cholesterol 42 mg/dL 03/05/2017 U nknown GLYCOSYLATED HEMOGLOBIN TEST 82431 Hgb A1c 73473-7 6.5 % 1 05/07/2015 Unknown GFR CALC 8718356 GFR Non Afr Amr 55 mL/min 03/06/2016 Unk nown GFR CALC 1933601 GFR Afr Amr >60 mL/min 03/06/2016 Unknow n COMPLETE BLOOD COUNT 8699418 WBC 8.5 10e9/L 03/06/20 16 Unknown COMPLETE BLOOD COUNT 8827276 RBC 4.32 10e12/L 2015 Unknown COMPLETE BLOOD COUNT 5643266 HEMOGLOBIN 13.5 g/dL 03/06/20 16 Unknown COMPLETE BLOOD COUNT 2879469 HEMATOCRIT 41.3 % 03/06/20 16 Unknown COMPLETE BLOOD COUNT 3823970 MCV 95.6 fL 6 Unknown COMPLETE BLOOD COUNT 0320263 MCH 31.3 pg 6 Unknown COMPLETE BLOOD COUNT 5432246 MCHC 32.7 g/dL 6 Unknown COMPLETE BLOOD COUNT 4230947 PLATELET COUNT 191 10e9/L 04/2015 Unknown COMPLETE BLOOD COUNT 0745358 Mean Plt Volume 11.7 fL 04/2015 Unknown COMPLETE BLOOD COUNT 6719179 Neut Auto 64.2 % 6 Unknown COMPLETE BLOOD COUNT 4138161 Lymph Auto 25.9 % 03/06/20 16 Unknown COMPLETE BLOOD COUNT 2404664 [place] Auto 7.8 % 6 Unknown COMPLETE BLOOD COUNT 9804767 RDW 13.4 % 6 Unknown COMPLETE BLOOD COUNT 2741088 Eos Auto 2.0 % 6 Unknown COMPLETE BLOOD COUNT 9477275 Baso Auto 0.1 % 6 Unknown COMPLETE BLOOD COUNT 6113711 Neutrophil Abs 5.46 10e9/L Unknown COMPLETE BLOOD COUNT 5180757 Lymphocyte Abs 2.20 10e9/L Unknown COMPLETE BLOOD COUNT [id number] Monocyte Abs 0.66 10e9/L 04/2015 Unknown COMPLETE BLOOD COUNT [id number] Eosinophil Abs 0.17 10e9/L Unknown COMPLETE BLOOD COUNT 4949871 RDW-SD 45.0 fL 6 Unknown COMPLETE BLOOD COUNT 7635449 Basophil Abs 0.01 10e9/L 04/2015 Unknown FREE T4 65028 T4 Free 1.34 ng/dL 03/06/2016 Unknown MEAN GLUC 2418502 Calc Mean Gluc 140 mg/dL 03/06/2016 Unkn own COMPREHENSIVE METABOLIC 34898 AST 15 U/L 2015 Unknown COMPREHENSIVE METABOLIC 95099 ALT 18 U/L 2015 Unknown COMPREHENSIVE METABOLIC 37103 BUN 21 mg/dL 2015 Unknown COMPREHENSIVE METABOLIC 28057 ALBUMIN 4.3 g/dL 2015 Unknown COMPREHENSIVE METABOLIC 82852 CHLORIDE 103 mmol/L 03/06 Unknown COMPREHENSIVE METABOLIC 18784 Bili Total 0.4 mg/dL 03/06 Unknown COMPREHENSIVE METABOLIC 19502 ALK PHOS 68 U/L 2015 Unknown COMPREHENSIVE METABOLIC 33936 SODIUM 140 mmol/L 03/06 Unknown COMPREHENSIVE METABOLIC 49875 CREATININE 1.31 mg/dL 04/2015 Unknown COMPREHENSIVE METABOLIC 01307 CALCIUM 9.4 mg/dL 2015 Unknown COMPREHENSIVE METABOLIC 58214 POTASSIUM 4.8 mmol/L 03/06 Unknown COMPREHENSIVE METABOLIC 20709 Total Protein 6.6 g/dL Unknown COMPREHENSIVE METABOLIC 52747 Glucose 142 mg/dL 2015 Unknown COMPREHENSIVE METABOLIC 19855 Bicarbonate 29 mmol/L 04/2015 Unknown COMPREHENSIVE METABOLIC 64677 AGAP 8 mmol/L 2015 Unknown THYROID STIMULATING HORMONE 36586 TSH 2.288 uIU/mL 03/06/2016 Unknown LIPID GROUP 40334 Cholesterol 154 mg/dL 03/06/2016 Unkno wn LIPID GROUP 74445 Triglyceride 266 mg/dL 03/06/2016 Unkn own LIPID GROUP 95269 HDL CHOLESTEROL 38 mg/dL 03/06/2016 U nknown LIPID GROUP 91594 Chol/HDL Ratio 4.05 ratio 03/06/2016 U nknown LIPID GROUP 75428 NON-HDL Chol 116 mg/dL 03/06/2016 Unkn own LIPID GROUP 38152 LDL Cholesterol 63 mg/dL 03/06/2016 U nknown MEAN GLUC 0051751 Mean Glucose 128 mg/dL 08/31/2015 Unknow n COMPLETE BLOOD COUNT 0280754 WBC 8.4 10e9/L 08/31/19 16 Unknown COMPLETE BLOOD COUNT 4434519 RBC 4.12 10e12/L 2015 Unknown COMPLETE BLOOD COUNT 1667123 HEMOGLOBIN 12.8 g/dL 08/31/19 16 Unknown COMPLETE BLOOD COUNT 5133531 HEMATOCRIT 39.6 % 08/31/19 16 Unknown COMPLETE BLOOD COUNT 5706988 MCV 96.1 fL 6 Unknown COMPLETE BLOOD COUNT 1304187 MCH 31.1 pg 6 Unknown COMPLETE BLOOD COUNT 3166534 MCHC 32.3 g/dL 6 Unknown COMPLETE BLOOD COUNT 2578450 PLATELET COUNT 184 10e9/L Unknown COMPLETE BLOOD COUNT 3486547 Mean Plt Volume 12.0 fL Unknown COMPLETE BLOOD COUNT 8904031 Neut Auto 59.8 % 6 Unknown COMPLETE BLOOD COUNT 8811346 Lymph Auto 27.9 % 08/31/19 16 Unknown COMPLETE BLOOD COUNT 3567570 [place] Auto 9.1 % 6 Unknown COMPLETE BLOOD COUNT 1800804 Eos Auto 3.1 % 6 Unknown COMPLETE BLOOD COUNT 3957207 RDW 13.6 % 6 Unknown COMPLETE BLOOD COUNT 0492013 Baso Auto 0.1 % 6 Unknown COMPLETE BLOOD COUNT 7003636 Neutrophil Abs 5.02 10e9/L Unknown COMPLETE BLOOD COUNT 7560477 Lymphoctye Abs 2.34 10e9/L Unknown COMPLETE BLOOD COUNT 3870394 Monocyte Abs 0.76 10e9/L 08/05 Unknown COMPLETE BLOOD COUNT 0863959 Eosinophil Abs 0.26 10e9/L Unknown COMPLETE BLOOD COUNT 5346034 RDW-SD 46.3 fL 6 Unknown COMPLETE BLOOD COUNT [id number] Basophil Abs 0.01 10e9/L 08/05 Unknown GLYCOSYLATED HEMOGLOBIN TEST 49125 Hgb A1c 90363-6 6.1 % 0 08/31/2015 Unknown GFR CALC 5887135 GFR Non Afr Amr >60 mL/min 08/31/2015 Un known GFR CALC 4977363 GFR Afr Amr >60 mL/min 08/31/2015 Unknow n FREE T4 94126 T4 Free 1.21 ng/dL 08/31/2015 Unknown THYROID STIMULATING HORMONE 18559 TSH 2.988 uIU/mL 08/31/2015 Unknown COMPREHENSIVE METABOLIC 55347 AST 16 U/L 2015 Unknown COMPREHENSIVE METABOLIC 79555 ALT 19 U/L 2015 Unknown COMPREHENSIVE METABOLIC 04058 BUN 17 mg/dL 2015 Unknown COMPREHENSIVE METABOLIC 86633 ALBUMIN 4.3 g/dL 2015 Unknown COMPREHENSIVE METABOLIC 55248 CHLORIDE 107 mmol/L 08/30 Unknown COMPREHENSIVE METABOLIC 41945 Bili Total 0.4 mg/dL 08/30 Unknown COMPREHENSIVE METABOLIC 21375 ALK PHOS 66 U/L 2015 Unknown COMPREHENSIVE METABOLIC 20099 SODIUM 140 mmol/L 08/30 Unknown COMPREHENSIVE METABOLIC 54033 CREATININE 1.07 mg/dL 08/05 Unknown COMPREHENSIVE METABOLIC 90325 CALCIUM 9.5 mg/dL 2015 Unknown COMPREHENSIVE METABOLIC 64858 POTASSIUM 4.5 mmol/L 08/30 Unknown COMPREHENSIVE METABOLIC 25889 Total Protein 6.7 g/dL Unknown COMPREHENSIVE METABOLIC 42670 Glucose 122 mg/dL 2015 Unknown COMPREHENSIVE METABOLIC 86084 Bicarbonate 26 mmol/L 08/05 Unknown COMPREHENSIVE METABOLIC 39077 AGAP 7 mmol/L 2015 Unknown LIPID GROUP 46438 Cholesterol 171 mg/dL 08/31/2015 Unkno wn LIPID GROUP 04414 Triglyceride 428 mg/dL 08/31/2015 Unkn own LIPID GROUP 90253 HDL CHOLESTEROL 35 mg/dL 08/31/2015 U nknown LIPID GROUP 93216 Chol/HDL Ratio 4.89 ratio 08/31/2015 U nknon LIPID GROUP 10938 NON-HDL Chol 136 mg/dL 08/31/2015 Unkn own LIPID GROUP 56576 LDL Cholesterol 50 mg/dL 08/31/2015 U nknown PSA EQUIMOLAR JERSON 30784 PSA Total 0.47 ng/mL 6 Unknown GFR CALC 7972049 GFR AA >60 ML/MIN 01/12/2015 Unknown GFR CALC 6563352 GFR NON-AA >60 ML/MIN 01/12/2015 Unknown COMPREHENSIVE METABOLIC 00534 AST 18 U/L 2014 Unknown COMPREHENSIVE METABOLIC 41199 ALT 19 IU/L 2014 Unknown COMPREHENSIVE METABOLIC 83343 BUN 19 MG/DL 2014 Unknown COMPREHENSIVE METABOLIC 86672 ALBUMIN 4.7 GM/DL 2014 Unknown COMPREHENSIVE METABOLIC 79954 CHLORIDE 104 MMOL/L 01/12 Unknown COMPREHENSIVE METABOLIC 02988 BILI TOT 0.8 MG/DL 2014 Unknown COMPREHENSIVE METABOLIC 67723 ALK PHOS 58 U/L 2014 Unknown COMPREHENSIVE METABOLIC 32368 SODIUM 139 MMOL/L 01/12 Unknown COMPREHENSIVE METABOLIC 07384 CREATININE 1.09 MG/DL 12/2014 Unknown COMPREHENSIVE METABOLIC 70734 CALCIUM 9.6 MG/DL 2014 Unknown COMPREHENSIVE METABOLIC 44111 POTASSIUM 4.4 MMOL/L 01/12 Unknown COMPREHENSIVE METABOLIC 51138 PROT TOT 6.7 GM/DL 2014 Unknown COMPREHENSIVE METABOLIC 46626 Glucose 109 MG/DL 2014 Unknown COMPREHENSIVE METABOLIC 45120 BICARB 27 MMOL/L 2014 Unknown COMPREHENSIVE METABOLIC 70193 ANION GAP 8 MEQ/L 2014 Unknown LIPID GROUP 34021 HDL TEST 36 MG/DL 01/12/2015 Unknown LIPID GROUP 77219 TRIG 220 MG/DL 01/12/2015 Unknown LIPID GROUP 45035 TEST LDL 58 MG/DL 01/12/2015 Unknown LIPID GROUP 31702 CHOL 138 MG/DL 01/12/2015 Unknown LIPID GROUP 90869 RCHOL/HDL 3.83 RATIO 01/12/2015 Unknow n LIPID GROUP 54016 NON-HDL CH 102 MG/DL 01/12/2015 Unknow n GLYCOSYLATED HEMOGLOBIN TEST 27073 A1C HPLC 54755-9 6.1 % 1 Unknown COMPLETE BLOOD COUNT 9519243 WBC 7.1 10e9/L 01/13/20 15 Unknown COMPLETE BLOOD COUNT 9992725 RBC 4.38 10e12/L 2014 Unknown COMPLETE BLOOD COUNT 6685275 HGB 13.7 g/dL 5 Unknown COMPLETE BLOOD COUNT 9132696 HCT DET 41.3 % 5 Unknown COMPLETE BLOOD COUNT 2888922 MCV 94.3 fL 5 Unknown COMPLETE BLOOD COUNT 6441811 MCH 31.3 pg 5 Unknown COMPLETE BLOOD COUNT 0399556 MCHC 33.2 g/dL 5 Unknown COMPLETE BLOOD COUNT 5804838 PLT 174 10e9/L 01/13/20 15 Unknown COMPLETE BLOOD COUNT 3271377 MPV 11.8 fL 5 Unknown COMPLETE BLOOD COUNT 8848673 SAMIR % 61.3 % 5 Unknown COMPLETE BLOOD COUNT 4089194 LY % 28.3 % 5 Unknown COMPLETE BLOOD COUNT 9913201 MON % 7.6 % 5 Unknown COMPLETE BLOOD COUNT 8934606 EOS % 2.7 % 5 Unknown COMPLETE BLOOD COUNT 0534069 BASO % 0.1 % 5 Unknown COMPLETE BLOOD COUNT 2746083 RDW 13.1 % 5 Unknown COMPLETE BLOOD COUNT 1803734 ABS SAMIR 4.35 10e9/L 015 Unknown COMPLETE BLOOD COUNT 6603207 ABS LYMPH 2.01 10e9/L 015 Unknown COMPLETE BLOOD COUNT 6459634 ABS MONO 0.54 10e9/L 015 Unknown COMPLETE BLOOD COUNT 2319899 ABS EOS 0.19 10e9/L 015 Unknown COMPLETE BLOOD COUNT 3561847 ABS BASO 0.01 10e9/L 015 Unknown COMPLETE BLOOD COUNT 8474254 RDW-SD 43.9 fL 5 Unknown GLYCOSYLATED HEMOGLOBIN TEST 57496 A1C HPLC 14419-3 6.1 % 0 08/15/2014 Unknown COMPLETE BLOOD COUNT 5767761 WBC 9.7 10e9/L 08/16/19 15 Unknown COMPLETE BLOOD COUNT 5801554 RBC 4.29 10e12/L 2014 Unknown COMPLETE BLOOD COUNT 2120623 HGB 13.3 g/dL 5 Unknown COMPLETE BLOOD COUNT 6965759 HCT DET 40.5 % 5 Unknown COMPLETE BLOOD COUNT 1199371 MCV 94.4 fL 5 Unknown COMPLETE BLOOD COUNT 3342804 MCH 31.0 pg 5 Unknown COMPLETE BLOOD COUNT 7212517 MCHC 32.8 g/dL 5 Unknown COMPLETE BLOOD COUNT 6226618 PLT 227 10e9/L 08/16/19 15 Unknown COMPLETE BLOOD COUNT 3748358 MPV 11.0 fL 5 Unknown COMPLETE BLOOD COUNT 7164623 SAMIR % 66.4 % 5 Unknown COMPLETE BLOOD COUNT 6662179 LY % 23.7 % 5 Unknown COMPLETE BLOOD COUNT 8792606 MON % 8.1 % 5 Unknown COMPLETE BLOOD COUNT 8436244 EOS % 1.6 % 5 Unknown COMPLETE BLOOD COUNT 8819962 BASO % 0.2 % 5 Unknown COMPLETE BLOOD COUNT 2427061 RDW 13.4 % 5 Unknown COMPLETE BLOOD COUNT 1014982 ABS SAMIR 6.44 10e9/L 015 Unknown COMPLETE BLOOD COUNT 5478273 ABS LYMPH 2.30 10e9/L 015 Unknown COMPLETE BLOOD COUNT 2573420 ABS MONO 0.79 10e9/L 015 Unknown COMPLETE BLOOD COUNT 5971362 ABS EOS 0.16 10e9/L 015 Unknown COMPLETE BLOOD COUNT 6850038 ABS BASO 0.02 10e9/L 015 Unknown COMPLETE BLOOD COUNT 7072023 RDW-SD 44.7 fL 5 Unknown COMPREHENSIVE METABOLIC 32985 AST 17 U/L 2014 Unknown COMPREHENSIVE METABOLIC 35218 ALT 23 IU/L 2014 Unknown COMPREHENSIVE METABOLIC 52963 BUN 16 MG/DL 2014 Unknown COMPREHENSIVE METABOLIC 96460 ALBUMIN 4.3 GM/DL 2014 Unknown COMPREHENSIVE METABOLIC 18217 CHLORIDE 107 MMOL/L 08/15 Unknown COMPREHENSIVE METABOLIC 83582 BILI TOT 0.4 MG/DL 2014 Unknown COMPREHENSIVE METABOLIC 27367 ALK PHOS 91 U/L 2014 Unknown COMPREHENSIVE METABOLIC 93559 SODIUM 139 MMOL/L 08/15 Unknown COMPREHENSIVE METABOLIC 74044 CREATININE 1.07 MG/DL 08/04 Unknown COMPREHENSIVE METABOLIC 82511 CALCIUM 9.6 MG/DL 2014 Unknown COMPREHENSIVE METABOLIC 56491 POTASSIUM 4.6 MMOL/L 08/15 Unknown COMPREHENSIVE METABOLIC 85224 PROT TOT 6.7 GM/DL 2014 Unknown COMPREHENSIVE METABOLIC 11676 Glucose 111 MG/DL 2014 Unknown COMPREHENSIVE METABOLIC 17890 BICARB 27 MMOL/L 2014 Unknown COMPREHENSIVE METABOLIC 90420 ANION GAP 5 MEQ/L 2014 Unknown GFR CALC 1132844 GFR AA >60 ML/MIN 08/15/2014 Unknown GFR CALC [id number] GFR NON-AA >60 ML/MIN 08/15/2014 Unknown THYROID STIMULATING HORMONE 81434 TSH 1.598 uIU/ML 08/15/2014 Unknown LIPID GROUP 41207 HDL TEST 33 MG/DL 08/15/2014 Unknown LIPID GROUP 19373 TRIG 187 MG/DL 08/15/2014 Unknown LIPID GROUP 98512 TEST LDL 58 MG/DL 08/15/2014 Unknown LIPID GROUP 11552 CHOL 128 MG/DL 08/15/2014 Unknown LIPID GROUP 99908 RCHOL/HDL 3.88 RATIO 08/15/2014 Unknow n LIPID GROUP 79750 NON-HDL CH 95 MG/DL 08/15/2014 Unknow n PSA EQUIMOLAR JERSON 36124 PSA EQ 0.70 NG/ML 5 Unknown FREE T4 80685 FREE T4 1.32 NG/DL 08/15/2014 Unknown GFR CALC 5110392 GFR AA >60 ML/MIN 12/14/2013 Unknown GFR CALC 4880541 GFR NON-AA 58.0L ML/MIN 12/14/2013 Unkno wn COMPLETE BLOOD COUNT 8698486 WBC 8.7 10e9/L 12/15/19 14 Unknown COMPLETE BLOOD COUNT [id number] RBC 4.32 10e12/L 2013 Unknown COMPLETE BLOOD COUNT 9960095 HGB 13.5 g/dL 4 Unknown COMPLETE BLOOD COUNT 4599553 HCT DET 40.6 % 4 Unknown COMPLETE BLOOD COUNT 4117118 MCV 94.0 fL 4 Unknown COMPLETE BLOOD COUNT 5870219 MCH 31.3 pg 4 Unknown COMPLETE BLOOD COUNT 6559936 MCHC 33.3 g/dL 4 Unknown COMPLETE BLOOD COUNT 7344458 PLT 205 10e9/L 12/15/19 14 Unknown COMPLETE BLOOD COUNT 9117422 MPV 11.7 fL 4 Unknown COMPLETE BLOOD COUNT 9759158 SAMIR % 62.5 % 4 Unknown COMPLETE BLOOD COUNT 9804085 LY % 26.9 % 4 Unknown COMPLETE BLOOD COUNT 8487472 MON % 8.8 % 4 Unknown COMPLETE BLOOD COUNT 0009793 EOS % 1.7 % 4 Unknown COMPLETE BLOOD COUNT 3784863 BASO % 0.1 % 4 Unknown COMPLETE BLOOD COUNT 5393449 RDW 13.4 % 4 Unknown COMPLETE BLOOD COUNT 7600386 ABS SAMIR 5.44 10e9/L 014 Unknown COMPLETE BLOOD COUNT [id number] ABS LYMPH 2.34 10e9/L 014 Unknown COMPLETE BLOOD COUNT [id number] ABS MONO 0.77 10e9/L 014 Unknown COMPLETE BLOOD COUNT [id number] ABS EOS 0.15 10e9/L 014 Unknown COMPLETE BLOOD COUNT [id number] ABS BASO 0.01 10e9/L 014 Unknown COMPLETE BLOOD COUNT [id number] RDW-SD 44.7 fL 4 Unknown COMPREHENSIVE METABOLIC 14770 AST 14 U/L 2013 Unknown COMPREHENSIVE METABOLIC 97020 ALT 12 IU/L 2013 Unknown COMPREHENSIVE METABOLIC 08580 BUN 24 MG/DL 2013 Unknown COMPREHENSIVE METABOLIC 03117 ALBUMIN 4.5 GM/DL 2013 Unknown COMPREHENSIVE METABOLIC 10983 CHLORIDE 104 MMOL/L 12/14 Unknown COMPREHENSIVE METABOLIC 23768 BILI TOT 0.6 MG/DL 2013 Unknown COMPREHENSIVE METABOLIC 34668 ALK PHOS 82 U/L 2013 Unknown COMPREHENSIVE METABOLIC 59481 SODIUM 135 MMOL/L 12/14 Unknown COMPREHENSIVE METABOLIC 07902 CREATININE 1.25 MG/DL 12/05 Unknown COMPREHENSIVE METABOLIC 90108 CALCIUM 9.8 MG/DL 2013 Unknown COMPREHENSIVE METABOLIC 71772 POTASSIUM 4.7 MMOL/L 12/14 Unknown COMPREHENSIVE METABOLIC 34188 PROT TOT 6.7 GM/DL 2013 Unknown COMPREHENSIVE METABOLIC 60134 Glucose 126 MG/DL 2013 Unknown COMPREHENSIVE METABOLIC 67724 BICARB 27 MMOL/L 2013 Unknown COMPREHENSIVE METABOLIC 26549 ANION GAP 4 MEQ/L 2013 Unknown THYROID STIMULATING HORMONE 02804 TSH 3.281 uIU/ML 12/14/2013 Unknown FREE T4 58436 FREE T4 1.28 NG/DL 12/14/2013 Unknown LIPID GROUP 98585 HDL TEST 36 MG/DL 12/14/2013 Unknown LIPID GROUP 19010 TRIG 253 MG/DL 12/14/2013 Unknown LIPID GROUP 40174 TEST LDL 56 MG/DL 12/14/2013 Unknown LIPID GROUP 36071 CHOL 143 MG/DL 12/14/2013 Unknown LIPID GROUP 56219 RCHOL/HDL 3.97 RATIO 12/14/2013 Unknow n LIPID GROUP 31563 NON-HDL CH 107 MG/DL 12/14/2013 Unknow n GLYCOSYLATED HEMOGLOBIN TEST 02418 A1C HPLC 79001-6 6.1 % 0 12/14/2013 Unknown GLYCOSYLATED HEMOGLOBIN TEST 28945 A1C HPLC 55724-1 6.0 % 0 06/08/2013 Unknown LIPID GROUP 86044 HDL TEST 39 MG/DL 06/08/2013 Unknown LIPID GROUP 47382 TRIG 166 MG/DL 06/08/2013 Unknown LIPID GROUP 59222 TEST LDL 86 MG/DL 06/08/2013 Unknown LIPID GROUP 81873 CHOL 158 MG/DL 06/08/2013 Unknown LIPID GROUP 45571 RCHOL/HDL 4.05 RATIO 06/08/2013 Unknow n COMPREHENSIVE METABOLIC 13561 AST 17 U/L 2013 Unknown COMPREHENSIVE METABOLIC 25462 ALT 25 IU/L 2013 Unknown COMPREHENSIVE METABOLIC 99453 BUN 18 MG/DL 2013 Unknown COMPREHENSIVE METABOLIC 69250 ALBUMIN 4.5 GM/DL 2013 Unknown COMPREHENSIVE METABOLIC 21271 CHLORIDE 103 MMOL/L 06/08 Unknown COMPREHENSIVE METABOLIC 68139 BILI TOT 0.4 MG/DL 2013 Unknown COMPREHENSIVE METABOLIC 69942 ALK PHOS 72 U/L 2013 Unknown COMPREHENSIVE METABOLIC 38128 SODIUM 137 MMOL/L 06/08 Unknown COMPREHENSIVE METABOLIC 27655 CREATININE 1.07 MG/DL 08/2013 Unknown COMPREHENSIVE METABOLIC 23185 CALCIUM 9.7 MG/DL 2013 Unknown COMPREHENSIVE METABOLIC 11318 POTASSIUM 4.7 MMOL/L 06/08 Unknown COMPREHENSIVE METABOLIC 37731 PROT TOT 6.6 GM/DL 2013 Unknown COMPREHENSIVE METABOLIC 73231 Glucose 130 MG/DL 2013 Unknown COMPREHENSIVE METABOLIC 90978 BICARB 25 MMOL/L 2013 Unknown COMPREHENSIVE METABOLIC 77547 ANION GAP 9 MEQ/L 2013 Unknown FREE T4 35013 FREE T4 1.29 NG/DL 06/08/2013 Unknown THYROID STIMULATING HORMONE 07469 TSH 2.445 uIU/ML 06/08/2013 Unknown GFR CALC GFR AA >60 ML/MIN 06/08/2013 Unknown GFR CALC GFR NON-AA >60 ML/MIN 06/08/2013 Unknown COMPLETE BLOOD COUNT [id number] WBC 8.2 10e9/L 06/09/19 14 Unknown COMPLETE BLOOD COUNT [id number] RBC 4.63 10e12/L 2013 Unknown COMPLETE BLOOD COUNT 5657001 HGB 14.1 g/dL 4 Unknown COMPLETE BLOOD COUNT [id number] HCT DET 42.6 % 4 Unknown COMPLETE BLOOD COUNT 4334481 MCV 92.0 fL 4 Unknown COMPLETE BLOOD COUNT 2355629 MCH 30.5 pg 4 Unknown COMPLETE BLOOD COUNT 0967437 MCHC 33.1 g/dL 4 Unknown COMPLETE BLOOD COUNT [id number] PLT 222 10e9/L 06/09/19 14 Unknown COMPLETE BLOOD COUNT 8871876 MPV 10.8 fL 4 Unknown COMPLETE BLOOD COUNT [id number] SAMIR % 60.8 % 4 Unknown COMPLETE BLOOD COUNT [id number] LY % 29.2 % 4 Unknown COMPLETE BLOOD COUNT [id number] MON % 7.6 % 4 Unknown COMPLETE BLOOD COUNT [id number] EOS % 2.3 % 4 Unknown COMPLETE BLOOD COUNT [id number] BASO % 0.1 % 4 Unknown COMPLETE BLOOD COUNT 7474343 RDW 13.7 % 4 Unknown COMPLETE BLOOD COUNT [id number] ABS SAMIR 4.99 10e9/L 014 Unknown COMPLETE BLOOD COUNT [id number] ABS LYMPH 2.39 10e9/L 014 Unknown COMPLETE BLOOD COUNT [id number] ABS MONO 0.62 10e9/L 014 Unknown COMPLETE BLOOD COUNT [id number] ABS EOS 0.19 10e9/L 014 Unknown COMPLETE BLOOD COUNT [id number] ABS BASO 0.01 10e9/L 014 Unknown COMPLETE BLOOD COUNT [id number] RDW-SD 45.2 fL 4 Unknown LIPID GROUP 59539 HDL TEST 40 MG/DL 11/11/2012 Unknown LIPID GROUP 73535 TRIG 153 MG/DL 11/11/2012 Unknown LIPID GROUP 55766 TEST LDL 71 MG/DL 11/11/2012 Unknown LIPID GROUP 25634 CHOL 142 MG/DL 11/11/2012 Unknown LIPID GROUP 07377 RCHOL/HDL 3.55 RATIO 11/11/2012 Unknow n GFR CALC 5134518 GFR AA >60 ML/MIN 11/11/2012 Unknown GFR CALC 6438564 GFR NON-AA 57.0L ML/MIN 11/11/2012 Unkno wn HEMOGLOBIN A1C (GLYCOSYLATED) 4160112 A1C HPLC 15364-2 5.9 % 11/11/2012 Unknown THYROID STIMULATING HORMONE 84386 TSH 2.439 uIU/ML 11/11/2012 Unknown COMPLETE BLOOD COUNT 1260386 WBC 8.5 10e9/L 11/12/19 13 Unknown COMPLETE BLOOD COUNT [id number] RBC 4.42 10e12/L 2012 Unknown COMPLETE BLOOD COUNT 2980106 HGB 13.7 g/dL 3 Unknown COMPLETE BLOOD COUNT [id number] HCT DET 41.3 % 3 Unknown COMPLETE BLOOD COUNT 0610094 MCV 93.4 fL 3 Unknown COMPLETE BLOOD COUNT 9216504 MCH 31.0 pg 3 Unknown COMPLETE BLOOD COUNT 5006085 MCHC 33.2 g/dL 3 Unknown COMPLETE BLOOD COUNT 4383554 PLT 220 10e9/L 11/12/19 13 Unknown COMPLETE BLOOD COUNT 4480191 MPV 10.8 fL 3 Unknown COMPLETE BLOOD COUNT [id number] SAMIR % 60.4 % 3 Unknown COMPLETE BLOOD COUNT 6245958 LY % 28.7 % 3 Unknown COMPLETE BLOOD COUNT 2542452 MON % 8.0 % 3 Unknown COMPLETE BLOOD COUNT [id number] EOS % 2.8 % 3 Unknown COMPLETE BLOOD COUNT 3532193 BASO % 0.1 % 3 Unknown COMPLETE BLOOD COUNT 5814215 RDW 13.7 % 3 Unknown COMPLETE BLOOD COUNT [id number] ABS SAMIR 5.13 10e9/L 013 Unknown COMPLETE BLOOD COUNT [id number] ABS LYMPH 2.44 10e9/L 013 Unknown COMPLETE BLOOD COUNT [id number] ABS MONO 0.68 10e9/L 013 Unknown COMPLETE BLOOD COUNT [id number] ABS EOS 0.24 10e9/L 013 Unknown COMPLETE BLOOD COUNT [id number] ABS BASO 0.01 10e9/L 013 Unknown COMPLETE BLOOD COUNT [id number] RDW-SD 45.6 fL 3 Unknown COMPREHENSIVE METABOLIC 52504 AST 19 U/L 2012 Unknown COMPREHENSIVE METABOLIC 55290 ALT 28 IU/L 2012 Unknown COMPREHENSIVE METABOLIC 53727 BUN 31 MG/DL 2012 Unknown COMPREHENSIVE METABOLIC 34234 ALBUMIN 4.7 GM/DL 2012 Unknown COMPREHENSIVE METABOLIC 35170 CHLORIDE 106 MMOL/L 11/11 Unknown COMPREHENSIVE METABOLIC 48732 BILI TOT 0.5 MG/DL 2012 Unknown COMPREHENSIVE METABOLIC 58920 ALK PHOS 64 U/L 2012 Unknown COMPREHENSIVE METABOLIC 79254 SODIUM 136 MMOL/L 11/11 Unknown COMPREHENSIVE METABOLIC 60446 CREATININE 1.27 MG/DL 11/2012 Unknown COMPREHENSIVE METABOLIC 43648 CALCIUM 9.4 MG/DL 2012 Unknown COMPREHENSIVE METABOLIC 95826 POTASSIUM 4.9 MMOL/L 11/11 Unknown COMPREHENSIVE METABOLIC 36022 PROT TOT 6.7 GM/DL 2012 Unknown COMPREHENSIVE METABOLIC 95618 Glucose 108 MG/DL 2012 Unknown COMPREHENSIVE METABOLIC 41126 BICARB 21 MMOL/L 2012 Unknown COMPREHENSIVE METABOLIC 22058 ANION GAP 9 MEQ/L 2012 Unknown THYROID STIMULATING HORMONE 30185 TSH 2.572 uIU/ML 05/04/2012 Unknown COMPLETE BLOOD COUNT [id number] WBC 9.3 10e9/L 05/04/19 13 Unknown COMPLETE BLOOD COUNT [id number] RBC 4.43 10e12/L 2012 Unknown COMPLETE BLOOD COUNT 8650979 HGB 14.2 g/dL 3 Unknown COMPLETE BLOOD COUNT 9374572 HCT DET 41.1 % 3 Unknown COMPLETE BLOOD COUNT 5864342 MCV 92.8 fL 3 Unknown COMPLETE BLOOD COUNT 8829461 MCH 32.1 pg 3 Unknown COMPLETE BLOOD COUNT 2488585 MCHC 34.5 g/dL 3 Unknown COMPLETE BLOOD COUNT 6819619 PLT 193 10e9/L 05/04/19 13 Unknown COMPLETE BLOOD COUNT 4992711 MPV 10.8 fL 3 Unknown COMPLETE BLOOD COUNT [id number] SAMIR % 63.0 % 3 Unknown COMPLETE BLOOD COUNT 9376254 LY % 25.3 % 3 Unknown COMPLETE BLOOD COUNT [id number] MON % 9.1 % 3 Unknown COMPLETE BLOOD COUNT 9471610 EOS % 2.5 % 3 Unknown COMPLETE BLOOD COUNT [id number] BASO % 0.1 % 3 Unknown COMPLETE BLOOD COUNT 8265902 RDW 12.6 % 3 Unknown COMPLETE BLOOD COUNT 4672315 ABS SAMIR 5.86 10e9/L 013 Unknown COMPLETE BLOOD COUNT [id number] ABS LYMPH 2.35 10e9/L 013 Unknown COMPLETE BLOOD COUNT [id number] ABS MONO 0.85 10e9/L 013 Unknown COMPLETE BLOOD COUNT [id number] ABS EOS 0.23 10e9/L 013 Unknown COMPLETE BLOOD COUNT [id number] ABS BASO 0.01 10e9/L 013 Unknown COMPLETE BLOOD COUNT [id number] RDW-SD 41.2 fL 3 Unknown LIPID GROUP 91432 HDL TEST 35 MG/DL 05/04/2012 Unknown LIPID GROUP 92825 TRIG 236 MG/DL 05/04/2012 Unknown LIPID GROUP 40469 TEST LDL 64 MG/DL 05/04/2012 Unknown LIPID GROUP 85291 CHOL 146 MG/DL 05/04/2012 Unknown LIPID GROUP 65522 RCHOL/HDL 4.17 RATIO 05/04/2012 Unknow n COMPREHENSIVE METABOLIC 23994 AST 23 U/L 2012 Unknown COMPREHENSIVE METABOLIC 92492 ALT 33 IU/L 2012 Unknown COMPREHENSIVE METABOLIC 76658 BUN 16 MG/DL 2012 Unknown COMPREHENSIVE METABOLIC 83027 ALBUMIN 4.8 GM/DL 2012 Unknown COMPREHENSIVE METABOLIC 93860 CHLORIDE 104 MMOL/L 05/04 Unknown COMPREHENSIVE METABOLIC 94335 BILI TOT 0.5 MG/DL 2012 Unknown COMPREHENSIVE METABOLIC 02564 ALK PHOS 70 U/L 2012 Unknown COMPREHENSIVE METABOLIC 16186 SODIUM 138 MMOL/L 05/04 Unknown COMPREHENSIVE METABOLIC 20870 CREATININE 1.08 MG/DL 04/07 Unknown COMPREHENSIVE METABOLIC 95114 CALCIUM 9.7 MG/DL 2012 Unknown COMPREHENSIVE METABOLIC 65349 POTASSIUM 4.4 MMOL/L 05/04 Unknown COMPREHENSIVE METABOLIC 05812 PROT TOT 6.8 GM/DL 2012 Unknown COMPREHENSIVE METABOLIC 82107 Glucose 114 MG/DL 2012 Unknown COMPREHENSIVE METABOLIC 35350 BICARB 27 MMOL/L 2012 Unknown COMPREHENSIVE METABOLIC 94839 ANION GAP 7 MEQ/L 2012 Unknown FREE T4 11283 FREE T4 1.11 NG/DL 05/04/2012 Unknown GFR CALC 8112426 GFR AA >60 ML/MIN 05/04/2012 Unknown GFR CALC 2285665 GFR NON-AA >60 ML/MIN 05/04/2012 Unknown GLYCOSYLATED HEMOGLOBIN TEST 48451 A1C HPLC 92879-5 5.8 % 0 10/29/2011 Unknown COMPREHENSIVE METABOLIC 17658 AST 17 U/L 2011 Unknown COMPREHENSIVE METABOLIC 99017 ALT 21 IU/L 2011 Unknown COMPREHENSIVE METABOLIC 24929 BUN 17 MG/DL 2011 Unknown COMPREHENSIVE METABOLIC 39177 ALBUMIN 4.8 GM/DL 2011 Unknown COMPREHENSIVE METABOLIC 99914 CHLORIDE 106 MMOL/L 10/28 Unknown COMPREHENSIVE METABOLIC 32093 BILI TOT 0.6 MG/DL 2011 Unknown COMPREHENSIVE METABOLIC 16377 ALK PHOS 57 U/L 2011 Unknown COMPREHENSIVE METABOLIC 01210 SODIUM 139 MMOL/L 10/28 Unknown COMPREHENSIVE METABOLIC 25192 CREATININE 1.08 MG/DL 10/05 Unknown COMPREHENSIVE METABOLIC 58947 CALCIUM 9.6 MG/DL 2011 Unknown COMPREHENSIVE METABOLIC 85706 POTASSIUM 4.4 MMOL/L 10/28 Unknown COMPREHENSIVE METABOLIC 91206 PROT TOT 6.9 GM/DL 2011 Unknown COMPREHENSIVE METABOLIC 70407 Glucose 104 MG/DL 2011 Unknown COMPREHENSIVE METABOLIC 65894 BICARB 25 MMOL/L 2011 Unknown COMPREHENSIVE METABOLIC 82395 ANION GAP 8 MEQ/L 2011 Unknown LIPID GROUP 54456 HDL TEST 39 MG/DL 10/29/2011 Unknown LIPID GROUP 86415 TRIG 176 MG/DL 10/29/2011 Unknown LIPID GROUP 16683 TEST LDL 70 MG/DL 10/29/2011 Unknown LIPID GROUP 35583 CHOL 144 MG/DL 10/29/2011 Unknown LIPID GROUP 44957 RCHOL/HDL 3.69 RATIO 10/29/2011 Unknow n GFR CALC 1965963 GFR AA >60 ML/MIN 10/29/2011 Unknown GFR CALC 5134537 GFR NON-AA >60 ML/MIN 10/29/2011 Unknown GFR CALC 1950805 GFR AA >60 ML/MIN 03/14/2011 Unknown GFR CALC 2543295 GFR NON-AA >60 ML/MIN 03/14/2011 Unknown GLYCOSYLATED HEMOGLOBIN TEST 30016 A1C HPLC 77212-3 5.7 % 1 05/15/2010 Unknown COMPREHENSIVE METABOLIC 66889 AST 18 U/L 2010 Unknown COMPREHENSIVE METABOLIC 68305 ALT 25 IU/L 2010 Unknown COMPREHENSIVE METABOLIC 43098 BUN 15 MG/DL 2010 Unknown COMPREHENSIVE METABOLIC 57134 ALBUMIN 4.6 GM/DL 2010 Unknown COMPREHENSIVE METABOLIC 83457 CHLORIDE 107 MMOL/L 03/14 Unknown COMPREHENSIVE METABOLIC 43033 BILI TOT 0.6 MG/DL 2010 Unknown COMPREHENSIVE METABOLIC 33672 ALK PHOS 54 U/L 2010 Unknown COMPREHENSIVE METABOLIC 40733 SODIUM 140 MMOL/L 03/14 Unknown COMPREHENSIVE METABOLIC 16056 CREATININE 1.02 MG/DL 12/2010 Unknown COMPREHENSIVE METABOLIC 61986 CALCIUM 9.4 MG/DL 2010 Unknown COMPREHENSIVE METABOLIC 07291 POTASSIUM 4.6 MMOL/L 03/14 Unknown COMPREHENSIVE METABOLIC 93901 PROT TOT 7.0 GM/DL 2010 Unknown COMPREHENSIVE METABOLIC 39544 Glucose 107 MG/DL 2010 Unknown COMPREHENSIVE METABOLIC 31202 BICARB 28 MMOL/L 2010 Unknown COMPREHENSIVE METABOLIC 30607 ANION GAP 5 MEQ/L 2010 Unknown LIPID GROUP 48364 HDL TEST 39 MG/DL 03/14/2011 Unknown LIPID GROUP 24557 TRIG 157 MG/DL 03/14/2011 Unknown LIPID GROUP 04841 TEST LDL 66 MG/DL 03/14/2011 Unknown LIPID GROUP 51409 CHOL 136 MG/DL 03/14/2011 Unknown LIPID GROUP 34695 RCHOL/HDL 3.49 RATIO 03/14/2011 Unknow n GFR CALC 8281010 GFR AA >60 ML/MIN 11/11/2010 Unknown GFR CALC 3587159 GFR NON-AA >60 ML/MIN 11/11/2010 Unknown LIPID GROUP 79366 HDL TEST 39 MG/DL 11/11/2010 Unknown LIPID GROUP 71965 TRIG 212 MG/DL 11/11/2010 Unknown LIPID GROUP 34380 TEST LDL 67 MG/DL 11/11/2010 Unknown LIPID GROUP 14618 CHOL 148 MG/DL 11/11/2010 Unknown LIPID GROUP 72578 RCHOL/HDL 3.79 RATIO 11/11/2010 Unknow n COMPREHENSIVE METABOLIC 48097 AST 17 U/L 2010 Unknown COMPREHENSIVE METABOLIC 24886 ALT 21 IU/L 2010 Unknown COMPREHENSIVE METABOLIC 08229 BUN 16 MG/DL 2010 Unknown COMPREHENSIVE METABOLIC 28315 ALBUMIN 4.6 GM/DL 2010 Unknown COMPREHENSIVE METABOLIC 76888 CHLORIDE 106 MMOL/L 11/11 Unknown COMPREHENSIVE METABOLIC 30221 BILI TOT 0.5 MG/DL 2010 Unknown COMPREHENSIVE METABOLIC 40476 ALK PHOS 61 U/L 2010 Unknown COMPREHENSIVE METABOLIC 04650 SODIUM 139 MMOL/L 11/11 Unknown COMPREHENSIVE METABOLIC 81445 CREATININE 1.00 MG/DL 11/2010 Unknown COMPREHENSIVE METABOLIC 39865 CALCIUM 9.5 MG/DL 2010 Unknown COMPREHENSIVE METABOLIC 82382 POTASSIUM 4.5 MMOL/L 11/11 Unknown COMPREHENSIVE METABOLIC 19142 PROT TOT 6.9 GM/DL 2010 Unknown COMPREHENSIVE METABOLIC 26219 Glucose 111 MG/DL 2010 Unknown COMPREHENSIVE METABOLIC 68331 BICARB 26 MMOL/L 2010 Unknown COMPREHENSIVE METABOLIC 11205 ANION GAP 7 MEQ/L 2010 Unknown HEMOGLOBIN A1C (GLYCOSYLATED) 16499 A1C HPLC 03926-3 5.6 % 07/24/2010 Unknown GFR CALC 5799027 GFR AA >60 ML/MIN 07/23/2010 Unknown GFR CALC 3307489 GFR NON-AA >60 ML/MIN 07/23/2010 Unknown COMPREHENSIVE METABOLIC 58044 AST 19 U/L 2010 Unknown COMPREHENSIVE METABOLIC 85611 ALT 33 IU/L 2010 Unknown COMPREHENSIVE METABOLIC 36447 BUN 14 MG/DL 2010 Unknown COMPREHENSIVE METABOLIC 18652 ALBUMIN 4.7 GM/DL 2010 Unknown COMPREHENSIVE METABOLIC 11438 CHLORIDE 107 MMOL/L 07/23 Unknown COMPREHENSIVE METABOLIC 81568 BILI TOT 0.4 MG/DL 2010 Unknown COMPREHENSIVE METABOLIC 86998 ALK PHOS 80 U/L 2010 Unknown COMPREHENSIVE METABOLIC 58612 SODIUM 141 MMOL/L 07/23 Unknown COMPREHENSIVE METABOLIC 45046 CREATININE 0.97 MG/DL 07/05 Unknown COMPREHENSIVE METABOLIC 43187 CALCIUM 9.5 MG/DL 2010 Unknown COMPREHENSIVE METABOLIC 33492 POTASSIUM 4.1 MMOL/L 07/23 Unknown COMPREHENSIVE METABOLIC 29345 PROT TOT 6.8 GM/DL 2010 Unknown COMPREHENSIVE METABOLIC 16934 Glucose 120 MG/DL 2010 Unknown COMPREHENSIVE METABOLIC 69538 BICARB 26 MMOL/L 2010 Unknown COMPREHENSIVE METABOLIC 28324 ANION GAP 8 MEQ/L 2010 Unknown LIPID GROUP 08059 HDL TEST 41 MG/DL 07/23/2010 Unknown LIPID GROUP 77873 TRIG 175 MG/DL 07/23/2010 Unknown LIPID GROUP 36383 TEST LDL 72 MG/DL 07/23/2010 Unknown LIPID GROUP 67691 CHOL 148 MG/DL 07/23/2010 Unknown LIPID GROUP 61724 RCHOL/HDL 3.61 RATIO 07/23/2010 Unknow n PSA FREE AND TOTAL 98137|15187 % FREE PSA FOOTNOTE % 011 Unknown PSA FREE AND TOTAL 97651|15186 XPSA TOTAL 0.83 NG/ML 011 Unknown PSA FREE AND TOTAL 25164|65970 XPSA FREE 0.13 NG/ML 04/26/19 11 Unknown VITAMIN D TOTAL (25 HYDROXY) 74833 VIT D TOTL 26 NG/ML 04/22/2010 Unknown TESTOSTERONE TOTAL 80005 TESTOS TO 387 NG/DL 04/19/2010 Unknown GFR CALC 2839676 GFR AA >60 ML/MIN 04/19/2010 Unknown GFR CALC 6449927 GFR NON-AA >60 ML/MIN 04/19/2010 Unknown COMPLETE BLOOD COUNT 99913 WBC 7.0 10e9/L 04/19/19 11 Unknown COMPLETE BLOOD COUNT 81990 RBC 5.07 10e12/L 2010 Unknown COMPLETE BLOOD COUNT 41081 HGB 15.6 g/dL 1 Unknown COMPLETE BLOOD COUNT 91403 HCT DET 46.2 % 1 Unknown COMPLETE BLOOD COUNT 44041 MCV 91.1 fL 1 Unknown COMPLETE BLOOD COUNT 92463 MCH 30.8 pg 1 Unknown COMPLETE BLOOD COUNT 86576 MCHC 33.8 g/dL 1 Unknown COMPLETE BLOOD COUNT 41914 PLT 205 10e9/L 04/19/19 11 Unknown COMPLETE BLOOD COUNT 58261 MPV 11.1 fL 1 Unknown COMPLETE BLOOD COUNT 11593 SAMIR % 62.4 % 1 Unknown COMPLETE BLOOD COUNT 33359 LY % 28.5 % 1 Unknown COMPLETE BLOOD COUNT 22968 MON % 6.9 % 1 Unknown COMPLETE BLOOD COUNT 68356 EOS % 2.1 % 1 Unknown COMPLETE BLOOD COUNT 75953 BASO % 0.1 % 1 Unknown COMPLETE BLOOD COUNT 99869 RDW 13.4 % 1 Unknown COMPLETE BLOOD COUNT 46787 ABS SAMIR 4.37 10e9/L 011 Unknown COMPLETE BLOOD COUNT 23726 ABS LYMPH 2.00 10e9/L 011 Unknown COMPLETE BLOOD COUNT 64870 ABS MONO 0.48 10e9/L 011 Unknown COMPLETE BLOOD COUNT 62231 ABS EOS 0.15 10e9/L 011 Unknown COMPLETE BLOOD COUNT 81007 ABS BASO 0.01 10e9/L 011 Unknown COMPLETE BLOOD COUNT 87367 RDW-SD 43.8 fL 1 Unknown LIPID GROUP 46926 HDL TEST 39 MG/DL 04/19/2010 Unknown LIPID GROUP 41934 TRIG 244 MG/DL 04/19/2010 Unknown LIPID GROUP 00167 TEST LDL 168 MG/DL 04/19/2010 Unknown LIPID GROUP 65947 CHOL 256 MG/DL 04/19/2010 Unknown LIPID GROUP 54076 RCHOL/HDL 6.56 RATIO 04/19/2010 Unknow n COMPREHENSIVE METABOLIC 98801 AST 28 U/L 2010 Unknown COMPREHENSIVE METABOLIC 67440 ALT 46 IU/L 2010 Unknown COMPREHENSIVE METABOLIC 55375 BUN 14 MG/DL 2010 Unknown COMPREHENSIVE METABOLIC 12278 ALBUMIN 4.9 GM/DL 2010 Unknown COMPREHENSIVE METABOLIC 83843 CHLORIDE 104 MMOL/L 04/19 Unknown COMPREHENSIVE METABOLIC 85454 BILI TOT 0.8 MG/DL 2010 Unknown COMPREHENSIVE METABOLIC 71927 ALK PHOS 71 U/L 2010 Unknown COMPREHENSIVE METABOLIC 40731 SODIUM 139 MMOL/L 04/19 Unknown COMPREHENSIVE METABOLIC 62923 CREATININE 1.06 MG/DL 04/06 Unknown COMPREHENSIVE METABOLIC 36848 CALCIUM 9.9 MG/DL 2010 Unknown COMPREHENSIVE METABOLIC 11460 POTASSIUM 4.3 MMOL/L 04/19 Unknown COMPREHENSIVE METABOLIC 32033 PROT TOT 7.2 GM/DL 2010 Unknown COMPREHENSIVE METABOLIC 30507 Glucose 99 MG/DL 2010 Unknown COMPREHENSIVE METABOLIC 98636 BICARB 28 MMOL/L 2010 Unknown COMPREHENSIVE METABOLIC 73114 ANION GAP 7 MEQ/L 2010 Unknown FREE T4 07267 FREE T4 1.26 NG/DL 04/19/2010 Unknown Procedures Procedure Codes Date ROUTINE VENIPUNCTURE CPT-4: 10177 08/24/2019 COMPREHEN METABOLIC PANEL CPT-4: 22033 08/24/2019 A1C HPLC CPT-4: 71775 08/24/2019 ROUTINE VENIPUNCTURE CPT-4: 37346 05/24/2019 COMPREHEN METABOLIC PANEL CPT-4: 14320 05/24/2019 A1C HPLC CPT-4: 70679 05/24/2019 FLU VACC PRSV FREE INC ANTIG 65 AND OLDER CPT-4: 13658 01/26/2019 FLU VACC PRSV FREE INC ANTIG 65 AND OLDER CPT-4: 75205 01/26/2019 ADMIN INFLUENZA VIRUS VAC CPT-4: G0008 01/26/2019 ROUTINE VENIPUNCTURE CPT-4: 77281 01/26/2019 COMPREHEN METABOLIC PANEL CPT-4: 68085 01/26/2019 COMPLETE CBC W/AUTO DIFF WBC CPT-4: 54631 01/26/2019 LIPID PANEL CPT-4: 03530 01/26/2019 A1C HPLC CPT-4: 44676 01/26/2019 ROUTINE VENIPUNCTURE CPT-4: 53488 09/30/2018 METABOLIC PANEL TOTAL CA CPT-4: 56024 09/30/2018 URINALYSIS NONAUTO W/O SCOPE CPT-4: 66425 08/19/2018 URINE CULTURE/ COLONY COUNT CPT-4: 53455 08/19/2018 MICROALBUMIN QUANTITATIVE CPT-4: 54557 08/19/2018 ROUTINE VENIPUNCTURE CPT-4: 97152 08/16/2018 ASSAY THYROID STIM HORMONE CPT-4: 12988 08/16/2018 COMPREHEN METABOLIC PANEL CPT-4: 14658 08/16/2018 COMPLETE CBC W/AUTO DIFF WBC CPT-4: 61630 08/16/2018 LIPID PANEL CPT-4: 19264 08/16/2018 A1C HPLC CPT-4: 33643 08/16/2018 LIPID PANEL CPT-4: 24558 05/05/2018 COMPREHEN METABOLIC PANEL CPT-4: 64314 05/05/2018 ROUTINE VENIPUNCTURE CPT-4: 31032 05/05/2018 A1C HPLC CPT-4: 42073 05/05/2018 COMPLETE CBC W/AUTO DIFF WBC CPT-4: 82531 05/05/2018 ASSAY THYROID STIM HORMONE CPT-4: 12053 05/05/2018 MICROALBUMIN QUANTITATIVE CPT-4: 25656 01/19/2018 PRESCRIP TRANSMIT VIA ERX SY CPT-4: G8553 01/19/2018 ROUTINE VENIPUNCTURE CPT-4: 55284 01/13/2018 COMPREHEN METABOLIC PANEL CPT-4: 91286 01/13/2018 A1C HPLC CPT-4: 36769 01/13/2018 LIPID PANEL CPT-4: 29903 01/13/2018 ASSAY OF PSA TOTAL CPT-4: 75006 01/13/2018 ASSAY THYROID STIM HORMONE CPT-4: 34791 01/13/2018 ROUTINE VENIPUNCTURE CPT-4: 61490 10/06/2017 COMPREHEN METABOLIC PANEL CPT-4: 28888 10/06/2017 COMPLETE CBC W/AUTO DIFF WBC CPT-4: 95600 10/06/2017 LIPID PANEL CPT-4: 78708 10/06/2017 A1C HPLC CPT-4: 52208 10/06/2017 VITAMIN B-12 CPT-4: 44130 10/06/2017 DESTRUCT PREMALG LESION (Cryosurgery) CPT-4: 24916 DESTRUCT PREMALG LES 2-14 CPT-4: 82895 04/23/2017 PRESCRIP TRANSMIT VIA ERX SY CPT-4: G8553 03/11/2017 ROUTINE VENIPUNCTURE CPT-4: 11207 03/05/2017 ASSAY OF FREE THYROXINE CPT-4: 24044 03/05/2017 ASSAY THYROID STIM HORMONE CPT-4: 00330 03/05/2017 COMPREHEN METABOLIC PANEL CPT-4: 22842 03/05/2017 COMPLETE CBC W/AUTO DIFF WBC CPT-4: 98602 03/05/2017 LIPID PANEL CPT-4: 03026 03/05/2017 A1C HPLC CPT-4: 13946 03/05/2017 ROUTINE VENIPUNCTURE CPT-4: 61119 06/16/2016 ASSAY OF FREE THYROXINE CPT-4: 34970 06/16/2016 ASSAY THYROID STIM HORMONE CPT-4: 42293 06/16/2016 COMPREHEN METABOLIC PANEL CPT-4: 18612 06/16/2016 COMPLETE CBC W/AUTO DIFF WBC CPT-4: 40220 06/16/2016 LIPID PANEL CPT-4: 85768 06/16/2016 A1C HPLC CPT-4: 71808 06/16/2016 ROUTINE VENIPUNCTURE CPT-4: 26232 03/06/2016 ASSAY OF FREE THYROXINE CPT-4: 13248 03/06/2016 ASSAY THYROID STIM HORMONE CPT-4: 65533 03/06/2016 COMPREHEN METABOLIC PANEL CPT-4: 63004 03/06/2016 COMPLETE CBC W/AUTO DIFF WBC CPT-4: 91991 03/06/2016 LIPID PANEL CPT-4: 42196 03/06/2016 A1C HPLC CPT-4: 09656 03/06/2016 PRESCRIP TRANSMIT VIA ERX SY CPT-4: G8553 09/10/2015 PNEUMOCOCCAL VACC 23 ROSANNE IM CPT-4: 31385 09/06/2015 ADMIN PNEUMOCOCCAL VACCINE CPT-4: G0009 09/06/2015 ROUTINE VENIPUNCTURE CPT-4: 11776 08/31/2015 COMPREHEN METABOLIC PANEL CPT-4: 14085 08/31/2015 COMPLETE CBC W/AUTO DIFF WBC CPT-4: 97869 08/31/2015 LIPID PANEL CPT-4: 57995 08/31/2015 ASSAY OF PSA TOTAL CPT-4: 98149 08/31/2015 A1C HPLC CPT-4: 90914 08/31/2015 ASSAY OF FREE THYROXINE CPT-4: 16641 08/31/2015 ASSAY THYROID STIM HORMONE CPT-4: 80526 08/31/2015 PRESCRIP TRANSMIT VIA ERX SY CPT-4: G8553 06/29/2015 FLU VACC PRSV FREE INC ANTIG 65 AND OLDER CPT-4: 57284 01/17/2015 PNEUMOCOCCAL VACC 13 ROSANNE IM CPT-4: 32091 01/17/2015 ADMIN INFLUENZA VIRUS VAC CPT-4: G0008 01/17/2015 ADMIN PNEUMOCOCCAL VACCINE CPT-4: G0009 01/17/2015 DESTRUCT PREMALG LESION (Cryosurgery) CPT-4: 13006 PRESCRIP TRANSMIT VIA ERX SY CPT-4: G8553 01/17/2015 ROUTINE VENIPUNCTURE CPT-4: 55521 01/12/2015 COMPREHEN METABOLIC PANEL CPT-4: 12641 01/12/2015 COMPLETE CBC W/AUTO DIFF WBC CPT-4: 17959 01/12/2015 LIPID PANEL CPT-4: 49700 01/12/2015 A1C HPLC CPT-4: 72242 01/12/2015 DESTRUCT PREMALG LESION (Cryosurgery) CPT-4: 48881 ROUTINE VENIPUNCTURE CPT-4: 43627 08/15/2014 COMPREHEN METABOLIC PANEL CPT-4: 65290 08/15/2014 COMPLETE CBC W/AUTO DIFF WBC CPT-4: 89385 08/15/2014 LIPID PANEL CPT-4: 13230 08/15/2014 A1C HPLC CPT-4: 50750 08/15/2014 ASSAY OF PSA TOTAL CPT-4: 12538 08/15/2014 ASSAY OF FREE THYROXINE CPT-4: 57966 08/15/2014 ASSAY THYROID STIM HORMONE CPT-4: 79937 08/15/2014 ROUTINE VENIPUNCTURE CPT-4: 81159 12/14/2013 ASSAY OF FREE THYROXINE CPT-4: 43904 12/14/2013 ASSAY THYROID STIM HORMONE CPT-4: 17650 12/14/2013 COMPREHEN METABOLIC PANEL CPT-4: 84660 12/14/2013 COMPLETE CBC W/AUTO DIFF WBC CPT-4: 94485 12/14/2013 LIPID PANEL CPT-4: 09107 12/14/2013 A1C HPLC CPT-4: 54896 12/14/2013 ROUTINE VENIPUNCTURE CPT-4: 66681 06/08/2013 ASSAY OF FREE THYROXINE CPT-4: 13866 06/08/2013 ASSAY THYROID STIM HORMONE CPT-4: 90030 06/08/2013 COMPREHEN METABOLIC PANEL CPT-4: 85125 06/08/2013 COMPLETE CBC W/AUTO DIFF WBC CPT-4: 02719 06/08/2013 LIPID PANEL CPT-4: 16751 06/08/2013 A1C HPLC CPT-4: 33648 06/08/2013 ROUTINE VENIPUNCTURE CPT-4: 69447 11/11/2012 COMPREHEN METABOLIC PANEL CPT-4: 43795 11/11/2012 COMPLETE CBC W/AUTO DIFF WBC CPT-4: 18418 11/11/2012 LIPID PANEL CPT-4: 19943 11/11/2012 A1C GLYCOSYLATED HEMOGLOBIN TEST CPT-4: 21124 013 ASSAY THYROID STIM HORMONE CPT-4: 19896 11/11/2012 ROUTINE VENIPUNCTURE CPT-4: 48555 05/04/2012 ASSAY OF FREE THYROXINE CPT-4: 12556 05/04/2012 ASSAY THYROID STIM HORMONE CPT-4: 74123 05/04/2012 COMPREHEN METABOLIC PANEL CPT-4: 12294 05/04/2012 COMPLETE CBC W/AUTO DIFF WBC CPT-4: 15173 05/04/2012 LIPID PANEL CPT-4: 27075 05/04/2012 DESTRUCT PREMALG LESION (Cryosurgery) CPT-4: 56989 DESTRUCT PREMALG LES 2-14 CPT-4: 90392 03/02/2012 ROUTINE VENIPUNCTURE CPT-4: 63693 10/29/2011 COMPREHEN METABOLIC PANEL CPT-4: 23080 10/29/2011 LIPID PANEL CPT-4: 80738 10/29/2011 A1C GLYCOSYLATED HEMOGLOBIN TEST CPT-4: 12073 012 ROUTINE VENIPUNCTURE CPT-4: 11527 07/29/2011 COMPREHEN METABOLIC PANEL CPT-4: 82822 07/29/2011 LIPID PANEL CPT-4: 72980 07/29/2011 A1C GLYCOSYLATED HEMOGLOBIN TEST CPT-4: 39979 012 ROUTINE VENIPUNCTURE CPT-4: 87456 03/14/2011 COMPREHEN METABOLIC PANEL CPT-4: 42408 03/14/2011 LIPID PANEL CPT-4: 73664 03/14/2011 A1C GLYCOSYLATED HEMOGLOBIN TEST CPT-4: 41188 011 ROUTINE VENIPUNCTURE CPT-4: 90945 11/11/2010 COMPREHEN METABOLIC PANEL CPT-4: 78151 11/11/2010 LIPID PANEL CPT-4: 80451 11/11/2010 URINE CULTURE/ COLONY COUNT CPT-4: 95790 11/11/2010 URINALYSIS NONAUTO W/O SCOPE CPT-4: 68490 10/29/2010 URINE CULTURE/ COLONY COUNT CPT-4: 65192 10/29/2010 LIPID PANEL CPT-4: 82456 07/23/2010 COMPREHEN METABOLIC PANEL CPT-4: 61526 07/23/2010 ROUTINE VENIPUNCTURE CPT-4: 23586 07/23/2010 ROUTINE VENIPUNCTURE CPT-4: 01266 04/26/2010 PSA FREE AND TOTAL CPT-4: 09963|85042 04/26/2010 OCCULT BLOOD FECES CPT-4: 56399 04/24/2010 ROUTINE VENIPUNCTURE CPT-4: 74031 04/19/2010 COMPLETE CBC W/AUTO DIFF WBC CPT-4: 74495 04/19/2010 COMPREHEN METABOLIC PANEL CPT-4: 43249 04/19/2010 LIPID PANEL CPT-4: 62307 04/19/2010 TESTOSTERONE TOTAL - MALE CPT-4: 76690 04/19/2010 ASSAY THYROID STIM HORMONE CPT-4: 73000 04/19/2010 ASSAY OF FREE THYROXINE CPT-4: 09901 04/19/2010 VITAMIN D TOTAL (25 HYDROXY) CPT-4: 54716 04/19/2010 Vital Signs Date Vital 06/02/2019 Blood Pressure 1: 132/80 Code: 8480-6 BMI: 29.5 Code: 51789-3 Heart Rate 1: 64 bpm Height: 6'3" [...] 1: 112/70 Code: 8480-6 BMI: 28.9 Code: 79813-8 Heart Rate 1: 60 bpm Height: 6'3" Respiratory Rate: 20 bpm SpO2: 95% Tempera ture: 36.6 (C) / 97.9 (F) Weight: 231 lbs 01/19/2018 Blood Pressure 1: 150/82 Code: 8480-6 Heart Rate 1: 63 bpm Respiratory Rate: 18 bpm SpO2: 98% Temperature: 36.0 (C) / 96.8 (F) We ight: 225 lbs 10/15/2017 Blood Pressure 1: 126/82 Code: 8480-6 BMI: 27.9 Code: 38860-5 Heart Rate 1: 64 bpm Height: 6'3" Respiratory Rate: 20 bpm SpO2: 96% Tempera ture: 36.7 (C) / 98.1 (F) Weight: 223 lbs 04/23/2017 Blood Pressure 1: 136/74 Code: 8480-6 BMI: 28.7 Code: 30173-9 Heart Rate 1: 76 bpm Height: 6'3" Respiratory Rate: 20 bpm Temperature: 37 .0 (C) / 98.6 (F) Weight: 230 lbs 03/11/2017 Blood Pressure 1: 136/66 Code: 8480-6 BMI: 28.6 Code: 81724-9 Heart Rate 1: 60 bpm Height: 6'3" Respiratory Rate: 20 bpm Temperature: 36 .7 (C) / 98.1 (F) Weight: 229 lbs 07/09/2016 Blood Pressure 1: 132/80 Code: 8480-6 BMI: 27.7 Code: 71268-0 Heart Rate 1: 64 bpm Height: 6'3" Respiratory Rate: 20 bpm SpO2: 96% Tempera ture: 36.9 (C) / 98.4 (F) Weight: 222 lbs 03/10/2016 Blood Pressure 1: 134/78 Code: 8480-6 BMI: 28.5 Code: 04002-0 Heart Rate 1: 60 bpm Height: 6'3" Respiratory Rate: 20 bpm SpO2: 96% Tempera ture: 36.7 (C) / 98.1 (F) Weight: 228 lbs 09/12/2015 Blood Pressure 1: 136/78 Code: 8480-6 Heart Rate 1: 84 bpm Height: Respiratory Rate: 24 bpm SpO2: 97% Temperature: 36.4 (C) / 97.6 (F) We ight: 09/10/2015 Blood Pressure 1: 124/76 Code: 8480-6 BMI: 28.5 Code: 39817-3 Heart Rate 1: 76 bpm Height: 6'3" Respiratory Rate: 24 bpm SpO2: 97% Tempera ture: 36.4 (C) / 97.6 (F) Weight: 228 lbs 09/06/2015 Blood Pressure 1: 124 Code: 8480-6 BMI: 29.0 Code: 47645-9 Heart Rate 1: 66 bpm Height: 6'3" Respiratory Rate: 20 bpm SpO2: 97% Tempera ture: 36.4 (C) / 97.6 (F) Weight: 232 lbs 06/29/2015 Blood Pressure 1: 124 Code: 8480-6 Heart Rate 1: 88 bpm Height: Respiratory Rate: 20 bpm Temperature: 36.7 (C) / 98.1 (F) Weight: 01/17/2015 Blood Pressure 1: 124 Code: 8480-6 BMI: 27.7 Code: 33264-8 Heart Rate 1: 76 bpm Height: 6'3" Respiratory Rate: 20 bpm Temperature: 36 .6 (C) / 97.8 (F) Weight: 222 lbs 09/19/2014 Blood Pressure 1: 12880 Code: 8480-6 BMI: 27.4 Code: 16155-7 Heart Rate 1: 64 bpm Height: 6'3" Respiratory Rate: 20 bpm Temperature: 36 .4 (C) / 97.6 (F) Weight: 219 lbs 10/17/2013 Blood Pressure 1: 116/70 Code: 8480-6 Heart Rate 1: 88 bpm Respiratory Rate: 20 bpm Temperature: 36.9 (C) / 98.4 (F) Weight: 220 lbs 09/23/2013 Blood Pressure 1: 12480 Code: 8480-6 BMI: 28.7 Code: 85126-2 Heart Rate 1: 76 bpm Height: 6'3" Respiratory Rate: 20 bpm Temperature: 36 .8 (C) / 98.2 (F) Weight: 230 lbs 07/22/2013 Blood Pressure 1: 128/70 Code: 8480-6 He art Rate 1: 78 bpm 06/20/2013 Blood Pressure 1: 144/86 Code: 8480-6 BMI: 28.7 Code: 93318-6 Heart Rate 1: 92 bpm Height: 6'3" Respiratory Rate: 20 bpm Temperature: 36 .4 (C) / 97.6 (F) Weight: 230 lbs 11/25/2012 Blood Pressure 1: 128/80 Code: 8480-6 BMI: 27.5 Code: 67508-3 Heart Rate 1: 92 bpm Height: 6'3" Respiratory Rate: 20 bpm Temperature: 36 .8 (C) / 98.3 (F) Weight: 220 lbs 08/27/2012 Blood Pressure 1: 142/80 Code: 8480-6 BMI: 27.7 Code: 64634-0 Heart Rate 1: 76 bpm Height: 6'3" Respiratory Rate: 20 bpm Temperature: 36 .8 (C) / 98.3 (F) Weight: 222 lbs 05/11/2012 Blood Pressure 1: 136/80 Code: 8480-6 BMI: 27.7 Code: 44937-6 Heart Rate 1: 76 bpm Height: 6'3" Respiratory Rate: 20 bpm Temperature: 36 .8 (C) / 98.3 (F) Weight: 222 lbs 03/02/2012 Blood Pressure 1: 136/70 Code: 8480-6 BMI: 28.0 Code: 41067-5 Heart Rate 1: 80 bpm Height: 6'3" Respiratory Rate: 20 bpm Temperature: 36 .6 (C) / 97.8 (F) Weight: 224 lbs 12/11/2011 Blood Pressure 1: 142/80 Code: 8480-6 BMI: 27.1 Code: 49450-6 Heart Rate 1: 84 bpm Height: 6'3" Respiratory Rate: 20 bpm Temperature: 36 .9 (C) / 98.4 (F) Weight: 217 lbs 08/14/2011 Blood Pressure 1: 130/82 Code: 8480-6 He art Rate 1: 64 bpm 07/29/2011 Blood Pressure 1: 132/64 Code: 8480-6 BMI: 26.7 Code: 04823-1 Heart Rate 1: 72 bpm Height: 6'3" [...] 1: 142/88 Code: 8480-6 BMI: 26.4 Code: 21530-6 Heart Rate 1: 80 bpm Height: 6'3" [...] labs Encounters Encounter Performer Location Codes Date ([id number]) NURSE/OUTPATIENT VISIT EST Diagnosis: Essential (primary) hypertension[ICD10: I10] Diagnosis: Type 2 diabetes mellitus with hyperglycemia[ICD10: E11.65] Najma [facility]ARTHUR [facility] [employer] CPT-4: 47849 08/24/2019 ([id number]) OFFICE/OUTPATIENT VISIT EST Diagnosis: Essential (primary) hypertension[ICD10: I10] Diagnosis: Gastro-esophageal reflux disease without esophagitis[ICD10: K21.9] Diagnosis: Type 2 diabetes mellitus with hyperglycemia[ICD10: E11.65] Najma [facility]ARTHUR [facility] [employer] CPT-4: 53331 06/02/2019 ([id number]) NURSE/OUTPATIENT VISIT EST Diagnosis: Type 2 diabetes mellitus without complications[ICD10: E11.9] Diagnosis: Essential (primary) hypertension[ICD10: I10] Diagnosis: Mixed hyperlipidemia[ICD10: E78.2] Najma GODINEZ [facility] [employer] CPT-4: 98539 05/24/2019 ([id number]) OFFICE/OUTPATIENT VISIT EST Diagnosis: Essential (primary) hypertension[ICD10: I10] Diagnosis: Type 2 diabetes mellitus without complications[ICD10: E11.9] Diagnosis: Mixed hyperlipidemia[ICD10: E78.2] Najma GODINEZ [facility] [employer] CPT-4: 77446 01/31/2019 ([id number]) NURSE/OUTPATIENT VISIT EST Diagnosis: Mixed hyperlipidemia[ICD10: E78.2] Diagnosis: Type 2 diabetes mellitus without complications[ICD10: E11.9] Diagnosis: Essential (primary) hypertension[ICD10: I10] Diagnosis: Chronic kidney disease, unspecified[ICD10: N18.9] Najma OG [employer] CPT-4: 08945 01/26/2019 ([id number]) NURSE/OUTPATIENT VISIT EST Diagnosis: Chronic kidney disease, unspecified[ICD10: N18.9] Diagnosis: Essential (primary) hypertension[ICD10: I10] Najma SAMSONAdvice CompanyBIJAN [employer] CPT-4: 62629 09/30/2018 ([id number]) OFFICE/OUTPATIENT VISIT EST Diagnosis: Essential (primary) hypertension[ICD10: I10] Diagnosis: Type 2 diabetes mellitus without complications[ICD10: E11.9] Diagnosis: Mixed hyperlipidemia[ICD10: E78.2] Diagnosis: Unspecified kidney failure[ICD10: N19] Najma HAQUE ADELA [facility] [employer] CPT-4: 14332 08/19/2018 ([id number]) NURSE/OUTPATIENT VISIT EST Diagnosis: Essential (primary) hypertension[ICD10: I10] Diagnosis: Type 1 diabetes mellitus with unspecified complications[ICD10: E10.8] Diagnosis: Mixed hyperlipidemia[ICD10: E78.2] Najma MANUELEVELINA GRETCHEN [facility] [employer] CPT-4: 52232 08/16/2018 ([id number]) OFFICE/OUTPATIENT VISIT EST Diagnosis: Essential (primary) hypertension[ICD10: I10] Diagnosis: Type 2 diabetes mellitus without complications[ICD10: E11.9] Diagnosis: Mixed hyperlipidemia[ICD10: E78.2] Najmaanaid Og ANUM GRETCHEN [employer] CPT-4: 59332 05/10/2018 ([id number]) NURSE/OUTPATIENT VISIT EST Diagnosis: Essential (primary) hypertension[ICD10: I10] Diagnosis: Mixed hyperlipidemia[ICD10: E78.2] Diagnosis: Type 1 diabetes mellitus with unspecified complications[ICD10: E10.8] Najma OG [employer] [facility] CPT-4: 75214 05/05/2018 ([id number]) OFFICE/OUTPATIENT VISIT EST Diagnosis: Type 2 diabetes mellitus without complications[ICD10: E11.9] Diagnosis: Mixed hyperlipidemia[ICD10: E78.2] Diagnosis: Nicotine dependence, unspecified, uncomplicated[ICD10: F17.200] Diagnosis: Essential (primary) hypertension[ICD10: I10] Najma MANUELLINE Matilda OG [employer] [facility] CPT-4: 25973 01/19/2018 ([id number]) NURSE/OUTPATIENT VISIT EST Diagnosis: Type 1 diabetes mellitus with unspecified complications[ICD10: E10.8] Diagnosis: Essential (primary) hypertension[ICD10: I10] Diagnosis: Male erectile disorder[ICD10: F52.21] Diagnosis: Encounter for screening for malignant neoplasm of prostate[ICD10: Z12.5] Najma MANUELLINE Matilda LONG [employer] [facility] CPT-4: 95151 01/13/2018 ([id number]) OFFICE/OUTPATIENT VISIT EST Diagnosis: Type 2 diabetes mellitus without complications[ICD10: E11.9] Diagnosis: Essential (primary) hypertension[ICD10: I10] Diagnosis: Mixed hyperlipidemia[ICD10: E78.2] Najma ABBOTTDAREN GODINEZ Matilda LONG [employer] [facility] CPT-4: 57846 10/15/2017 ([id number]) NURSE/OUTPATIENT VISIT EST Diagnosis: Type 2 diabetes mellitus without complications[ICD10: E11.9] Diagnosis: Mixed hyperlipidemia[ICD10: E78.2] Diagnosis: Essential (primary) hypertension[ICD10: I10] Diagnosis: Glossitis[ICD10: K14.0] Najma MANUELLINE Matilda THAKKAR [employer] [facility] CPT-4: 96648 10/06/2017 ([id number]) OFFICE/OUTPATIENT VISIT EST Diagnosis: Type 2 diabetes mellitus without complications[ICD10: E11.9] Diagnosis: Mixed hyperlipidemia[ICD10: E78.2] Diagnosis: Essential (primary) hypertension[ICD10: I10] Najma OG DO [facility] CPT-4: 28139 03/11/2017 ([id number]) OFFICE/OUTPATIENT VISIT EST Diagnosis: Type 1 diabetes mellitus with unspecified complications[ICD10: E10.8] Diagnosis: Mixed hyperlipidemia[ICD10: E78.2] Diagnosis: Essential (primary) hypertension[ICD10: I10] Diagnosis: Other fatigue[ICD10: R53.83] Najma OG DO [facility] CPT-4: 66435 03/05/2017 ([id number]) OFFICE/OUTPATIENT VISIT EST Diagnosis: Type 2 diabetes mellitus without complications[ICD10: E11.9] Diagnosis: Mixed hyperlipidemia[ICD10: E78.2] Diagnosis: Essential (primary) hypertension[ICD10: I10] Diagnosis: Nicotine dependence, unspecified, uncomplicated[ICD10: F17.200] Najma OG DO [facility] CPT-4: 94379 07/09/2016 ([id number]) OFFICE/OUTPATIENT VISIT EST Diagnosis: Type 1 diabetes mellitus with unspecified complications[ICD10: E10.8] Diagnosis: Mixed hyperlipidemia[ICD10: E78.2] Diagnosis: Essential (primary) hypertension[ICD10: I10] Najma OG DO [facility] CPT-4: 72064 06/16/2016 ([id number]) OFFICE/OUTPATIENT VISIT EST Diagnosis: Type 2 diabetes mellitus without complications[ICD10: E11.9] Diagnosis: Mixed hyperlipidemia[ICD10: E78.2] Diagnosis: Essential (primary) hypertension[ICD10: I10] Najma OG DO [facility] CPT-4: 77752 03/10/2016 ([id number]) OFFICE/OUTPATIENT VISIT EST Diagnosis: Type 1 diabetes mellitus with unspecified complications[ICD10: E10.8] Diagnosis: Mixed hyperlipidemia[ICD10: E78.2] Diagnosis: Essential (primary) hypertension[ICD10: I10] Najma OG DO [facility] CPT-4: 49342 03/06/2016 ([id number]) OFFICE/OUTPATIENT VISIT EST Diagnosis: Bitten or stung by nonvenomous insect and other nonvenomous arthropods, subsequent encounter[ICD10: W57.XXXD] Diagnosis: Insect bite (nonvenomous), right thigh, subsequent encounter[ICD10: S70.361D] Barbara Brower NAJMA [employer] CPT-4: 90495 11/2015 ([id number]) OFFICE/OUTPATIENT VISIT EST Diagnosis: Bitten or stung by nonvenomous insect and other nonvenomous arthropods, initial encounter[ICD10: W57.XXXA] Diagnosis: Insect bite (nonvenomous), right thigh, initial encounter[ICD10: S70.361A] Barbara Brower NAJMA [employer] CPT-4: 21874 09/2015 ([id number]) OFFICE/OUTPATIENT VISIT EST Diagnosis: Mixed hyperlipidemia[ICD10: E78.2] Diagnosis: Essential (primary) hypertension[ICD10: I10] Diagnosis: Type 2 diabetes mellitus without complications[ICD10: E11.9] Diagnosis: Encounter for immunization[ICD10: Z23] Diagnosis: Encounter for screening for malignant neoplasm of colon[ICD10: Z12.11] Diagnosis: Abnormal weight gain[ICD10: R63.5] Barbara Brower ANUM GODINEZ [facility] [employer] CPT-4: 85834 09/06/2015 ([id number]) OFFICE/OUTPATIENT VISIT EST Diagnosis: Type 2 diabetes mellitus without complications[ICD10: E11.9] Diagnosis: Mixed hyperlipidemia[ICD10: E78.2] Diagnosis: Essential (primary) hypertension[ICD10: I10] Diagnosis: Encounter for screening for malignant neoplasm of prostate[ICD10: Z12.5] Diagnosis: Other fatigue[ICD10: R53.83] Najma MCARTHUR [facility] [employer] CPT-4: 85061 08/31/2015 OFFICE/OUTPATIENT VISIT EST Diagnosis: Diarrhea, unspecified[ICD10: R19.7] Henrietta MCCOY [facility] [employer] CPT-4: 28740 06/29/2015 OFFICE/OUTPATIENT VISIT EST Diagnosis: PNEUMOCOCCAL VACCINE[ICD10: Z23] Diagnosis: FLU VACCINE[ICD10: Z23] Diagnosis: Essential (primary) hypertension[ICD10: I10] Diagnosis: Mixed hyperlipidemia[ICD10: E78.2] Diagnosis: Type 1 diabetes mellitus with unspecified complications[ICD10: E10.8] Diagnosis: Actinic keratosis[ICD10: L57.0] Najma OG [facility] CPT-4: 02128 01/17/2015 ([id number]) OFFICE/OUTPATIENT VISIT EST Diagnosis: Type 2 diabetes mellitus without complications[ICD10: E11.9] Diagnosis: Impaired fasting glucose[ICD10: R73.01] Diagnosis: Mixed hyperlipidemia[ICD10: E78.2] Diagnosis: Essential (primary) hypertension[ICD10: I10] Najma OG [employer] [facility] CPT-4: 49869 01/12/2015 ([id number]) OFFICE/OUTPATIENT VISIT EST Diagnosis: - I - HYPERLIPIDEMIA NEC/NOS[ICD9: 272.4] Diagnosis: HYPERTENSION[ICD9: 401.9] Diagnosis: DM W/O COMPLICATION TYPE II[ICD9: 250.00] Diagnosis: ACTINIC KERATOSIS[ICD9: 702.0] Najma OG [employer] [facility] CPT-4: 54103 09/19/2014 ([id number]) OFFICE/OUTPATIENT VISIT EST Diagnosis: HYPERLIPIDEMIA NEC/NOS[ICD9: 272.4] Diagnosis: HYPERTENSION[ICD9: 401.9] Diagnosis: IMPAIRED FASTING GLUCOSE[ICD9: 790.21] Diagnosis: MALAISE AND FATIGUE[ICD9: 780.79] Najma OG [employer] [facility] CPT-4: 21844 08/15/2014 ([id number]) OFFICE/OUTPATIENT VISIT EST Diagnosis: HYPERLIPIDEMIA NEC/NOS[ICD9: 272.4] Diagnosis: HYPERTENSION[ICD9: 401.9] Diagnosis: IMPAIRED FASTING GLUCOSE[ICD9: 790.21] Najma Heverlane CHAPMAN Matilda OG [employer] [facility] CPT-4: 76095 12/14/2013 ([id number]) OFFICE/OUTPATIENT VISIT EST Diagnosis: Post herpetic neuralgia[ICD9: 053.19] Najma BROOKS Matilda OG [employer] [facility] CPT-4: 83303 10/17/2013 OFFICE/OUTPATIENT VISIT EST Diagnosis: Shingles[ICD9: 053.9] Diagnosis: Post herpetic neuralgia[ICD9: 053.19] Jeanie ScottRandshawneeamita [facility] CPT-[facility]: 89923 09/23/2013 ([id number]) OFFICE/OUTPATIENT VISIT EST Diagnosis: HYPERTENSION[ICD9: 401.9] Diagnosis: HYPERLIPIDEMIA NEC/NOS[ICD9: 272.4] Diagnosis: IMPAIRED FASTING GLUCOSE[ICD9: 790.21] [facility] CPT-[facility]: 15025 06/20/2013 ([id number]) OFFICE/OUTPATIENT VISIT EST Diagnosis: HYPERLIPIDEMIA NEC/NOS[ICD9: 272.4] Diagnosis: MALAISE AND FATIGUE[ICD9: 780.79] Diagnosis: ROUTINE MEDICAL EXAM[ICD9: V70.0] Diagnosis: HYPERTENSION[ICD9: 401.9] Diagnosis: IMPAIRED FASTING GLUCOSE[ICD9: 790.21] [facility] CPT-[facility]: 01568 06/08/2013 ([id number]) OFFICE/OUTPATIENT VISIT EST Diagnosis: HYPERLIPIDEMIA NEC/NOS[ICD9: 272.4] Diagnosis: HYPERTENSION[ICD9: 401.9] Diagnosis: IMPAIRED FASTING GLUCOSE[ICD9: 790.21] Diagnosis: DIARRHEA[ICD9: 787.91] Najma MANUELLINE Matilda Stallings [facility] CPT-4: 20782 11/25/2012 ([id number]) OFFICE/OUTPATIENT VISIT EST Diagnosis: HYPERLIPIDEMIA NEC/NOS[ICD9: 272.4] Diagnosis: HYPERTENSION[ICD9: 401.9] Diagnosis: IMPAIRED FASTING GLUCOSE[ICD9: 790.21] Diagnosis: MALAISE AND FATIGUE[ICD9: 780.79] Najma Hevervicentebijan FILI Gregory LONG [employer] [facility] CPT-4: 07385 11/11/2012 OFFICE/OUTPATIENT VISIT EST Diagnosis: Fungal dermatitis[ICD9: 111.9] Diagnosis: Dry skin dermatitis[ICD9: 692.89] Henrietta Jenkins AmeenaMatilde MERCEDES [employer] [facility] CPT-4: 77234 08/27/2012 ([id number]) OFFICE/OUTPATIENT VISIT EST Diagnosis: HYPERTENSION[ICD9: 401.9] Diagnosis: HYPERLIPIDEMIA NEC/NOS[ICD9: 272.4] Najma SAMSONNDER [facility] CPT-4: 30910 05/11/2012 ([id number]) OFFICE/OUTPATIENT VISIT EST Diagnosis: HYPERLIPIDEMIA NEC/NOS[ICD9: 272.4] Diagnosis: HYPERTENSION[ICD9: 401.9] Diagnosis: ROUTINE MEDICAL EXAM[ICD9: V70.0] Najma SAMSONNDER [facility] CPT-4: 02719 05/04/2012 ([id number]) OFFICE/OUTPATIENT VISIT EST Diagnosis: HYPERTENSION[ICD9: 401.9] Diagnosis: HYPERLIPIDEMIA NEC/NOS[ICD9: 272.4] Diagnosis: IMPAIRED FASTING GLUCOSE[ICD9: 790.21] Najma SAMSONNDBIJAN WADE [facility] CPT-4: 25854 12/11/2011 ([id number]) OFFICE/OUTPATIENT VISIT EST Diagnosis: HYPERLIPIDEMIA NEC/NOS[ICD9: 272.4] Diagnosis: HYPERTENSION[ICD9: 401.9] Diagnosis: IMPAIRED FASTING GLUCOSE[ICD9: 790.21] Najma SAMSONNDER [facility] CPT-4: 46158 10/29/2011 ([id number]) OFFICE/OUTPATIENT VISIT EST Diagnosis: HYPERTENSION[ICD9: 401.9] Najma SAMSON NDER [facility] CPT-4: 40305 08/14/2011 ([id number]) OFFICE/OUTPATIENT VISIT EST Diagnosis: HYPERTENSION[ICD9: 401.9] Diagnosis: IMPAIRED FASTING GLUCOSE[ICD9: 790.21] Najma SAMSONNDER [facility] CPT-4: 08466 07/29/2011 ([id number]) OFFICE/OUTPATIENT VISIT EST Diagnosis: HYPERTENSION[ICD9: 401.9] Najma SAMSON NDER [facility] CPT-4: 78727 07/23/2011 ([id number]) OFFICE/OUTPATIENT VISIT EST Diagnosis: HYPERTENSION[ICD9: 401.9] Najma SAMSON NDER [facility] CPT-4: 25887 06/24/2011 OFFICE/OUTPATIENT VISIT EST Diagnosis: HYPERTENSION[ICD9: 401.9] Najma PAYAN DO [employer] CPT-4: 10556 05/20/2011 OFFICE/OUTPATIENT VISIT EST Diagnosis: HYPERTENSION[ICD9: 401.9] Najma PAYAN DO [employer] CPT-4: 85027 04/15/2011 OFFICE/OUTPATIENT VISIT EST Diagnosis: HYPERLIPIDEMIA NEC/NOS[ICD9: 272.4] Diagnosis: IMPAIRED FASTING GLUCOSE[ICD9: 790.21] Najma OG DO [employer] CPT-4: 94245 03/18/2011 ([id number]) OFFICE/OUTPATIENT VISIT EST Najma OG DO [employer] CPT-4: 97959 07/30/2010 ([id number]) PREV VISIT, EST, AGE 40-64 Najma OG DO [employer] CPT-4: 64040 04/24/2010 Plan of Care Planned Activity Notes [...] : I10 06/02/2019 [facility]ment[phone] [id number] [facility] 06/02/2019 Appointment: [facility]aj[facility] [phone] [facility] [facility] 05/24/2019 Visit Diagnosis Plan: Essential [...] : E78.2 01/31/2019 Appointment: Najma Og WPtel: [address] [place] [address] [place] FOLLOW UP 01/31/2019 Appointment: Najma Og WPtel: [address] [place] [address] [place] LAB 01/26/2019 Appointment: Najma Og WPtel: [address] [place] [address] [place] LAB 09/30/2018 Visit Diagnosis Plan: Essential [...] : N19 08/19/2018 Appointment: Najma Og WPtel: [address] [place] [address] US FOLLOW UP 08/19/2018 Appointment: Najma Og WPtel: [address] [place], [place] [phone] [place] LAB 08/16/2018 Visit Diagnosis Plan: Type [...] : I10 05/10/2018 Appointment: Najma Og WPtel: [address] [place], [place] [phone] [place] FOLLOW UP 05/10/2018 Patient Education: Low Back Pain Exercises: Illustration Completed 05/10/2018 Patient Education: Low Back Pain Exercises Completed 05/10/2018 Appointment: Najma Og WPtel: [address] [place], [place] [phone] [place] LAB 05/05/2018 Visit Diagnosis Plan: Type [...] E78.2 01/19/2018 Appointment: Najma Og WPtel: [address] [place], [place] [phone] [place] FOLLOW UP 01/19/2018 Patient Education: Patient Medication Summary Completed 01/19/2018 Appointment: Najma Og WPtel: [address] [place], [place] [phone] [place] LAB 01/13/2018 Patient Education: Patient Medication [...] : E78.2 10/15/2017 Appointment: Najma Og WPtel: [address] [place], [place] [phone] [place] FOLLOW UP 10/15/2017 Patient Education: Patient Medication Summary Completed 10/15/2017 Appointment: Najma Og WPtel: [address] [place], [place] [phone] [place] LAB 10/06/2017 Patient Education: Patient Medication Summary Completed 10/06/2017 Visit Diagnosis Plan: Actinic keratosis Discussion: Cr yotherapy as above ICD-9 : 702.0 ICD-10 : L57.0 04/23/2017 Appointment: Najma Og WPtel: [address] [place], [place] [phone] OFFICE SURGERY 04/23/2017 Patient Education: Patient [...] : E11.9 03/11/2017 Appointment: Najma Og WPtel: [address] [place], [place] [phone] [place] FOLLOW UP 03/11/2017 Patient Education: Patient Medication Summary Completed 03/11/2017 Appointment: Najma Og WPtel: [address] [place], [place] [phone] [place] LAB 03/05/2017 Patient Education: Patient Medication [...] : E78.2 07/09/2016 Appointment: Najma Og WPtel: [address] [place] [address] [place] 07/08 lm ~sl 07/09 confirmed~sl FOLLOW UP 08/2016 Patient Education: Patient Medication Summary Completed 07/09/2016 Appointment: Najma Og WPtel: [address] [place] [address] [place] LAB 06/16/2016 Patient Education: Patient Medication Summary Completed 06/16/2016 Visit Plan: Lab discussed Accuchecks maribel ly Lifestyle change for 3mos then check CMP, HbA1C in 3mos Has had flu and pneumonia shot 03/10/2016 Appointment: Najma Og WPtel: [address] [place], [place] [phone] [place] 03/06 confirmed `sl FOLLOW UP 03/10/2016 Patient Education: Patient Medication Summary Completed 03/10/2016 Appointment: Najma Og WPtel: [address] [place], [place] [phone] [place] LAB 03/06/2016 Patient Education: Patient Medication Summary Completed 03/06/2016 [facility] [facility] Completed 10/22/2015 Visit Plan: Tick bite area looks much be tter Continue current rxs and close monitoring Follow up if any new symptoms or worsening appearance 09/12/2015 Appointment: Barbara Brower [address] [place] [address] 09/10 confirmed~sl FOLLOW UP 09/12/2015 Patient Education: Patient Medication Summary Completed 09/12/2015 Visit Plan: Cover as above 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 topical steroids to calm down the inflammation(suspect most of redness is due to histamine response vs infection) Monitor closely Follow up in 2 days to recheck 09/10/2015 Appointment: Barbara Brower [address] [place], [place] [phone] ACUTE ILLNESS 09/10/2015 Patient Education: Patient [...] consider shingles vaccine 09/06/2015 Appointment: Barbara Brower [address] [place], [place] [phone] FOLLOW UP 09/06/2015 Patient Education: Patient Medication Summary Completed 09/06/2015 Care Plan: Referral Order SNOMED-CT : [id number] Pending 09/06/2015 Appointment: Najma Og WPtel: [phone] [id number] LAB 08/31/2015 Patient Education: Patient Medication [...] UC/ER. 06/29/2015 Appointment: Henrietta Lubin WPtel: [phone] [id number] ACUTE ILLNESS 06/29/2015 Patient Education: Patient Medication Summary Completed 06/29/2015 Visit Plan: Lab discussed Will keep meds the same Discussed diet/exercise at length Cryotherapy as above to AKs of arms Flu and Prevnar 13 given Trial of revatio per patient request for ED--warned of no nitrates Recheck 4mos 01/17/2015 Appointment: Najma Og WPtel: [address] [place], [place] [phone] 01/16 confirmed~sl FOLLOW UP 01/17/2015 Patient Education: Patient Medication Summary Completed 01/17/2015 Appointment: Najma Og WPtel: [address] [place], [place] [phone] [facility] 01/12/2015 Patient Education: Patient Medication Summary Completed 01/12/2015 Visit Plan: Lab discussed Start accuchec ks daily Cryotherapy as above 09/19/2014 Appointment: Najma Og WPtel: [address] [place] [address] 09/18 confirmed -mf FOLLOW UP 09/19/2014 Patient Education: Patient Medication Summary Completed 09/19/2014 Appointment: Najma Og WPtel: [address] [place] [address] LAB 08/15/2014 Patient Education: Patient Medication Summary Completed 08/15/2014 Appointment: Najma Og WPtel: [address] [place] [address] ACUTE ILLNESS 12/14/2013 Patient Education: Patient Medication Summary Completed 12/14/2013 Visit Plan: Patient using tylenol prn pa in Discussed possible shingles shot for booster in 9-12mos 10/17/2013 Appointment: Najma Og WPtel: [address] [place], [place] [phone] FOLLOW UP 10/17/2013 Patient Education: Patient Medication Summary Completed 10/17/2013 Appointment: Jeanie Briceño WPtel: [address] [place] [address] ACUTE ILLNESS 09/23/2013 Patient Education: Patient Medication Summary Completed 09/23/2013 Appointment: Najma Og WPtel: [address] [place] [address] BP CHECK 07/22/2013 Patient Education: Patient Medication Summary Completed 07/22/2013 Visit Plan: Lab discussed Discussed swit arun amlodopine to beta slim to see if helps with tremor BP check in 1mo 06/20/2013 Appointment: Najma Og WPtel: [address] [place], [place] [phone] 06/17 no answer FOLLOW UP 06/20/2013 Patient Education: Patient Medication Summary Completed 06/20/2013 Appointment: Najma Og WPtel: [address] [place], [place] [phone] [place] LAB 06/08/2013 Patient Education: Patient Medication Summary Completed 06/08/2013 Visit Plan: BRAT diet and yogurt and gat orade Lab discussed Continue current meds Spot checks on BS 11/25/2012 Appointment: Najma Og WPtel: [address] [place], [place] [phone] 11/24 vm FOLLOW UP 11/25/2012 Patient Education: Patient Medication Summary Completed 11/25/2012 Appointment: Najma Og WPtel: [address] [place], [place] [phone] LAB 11/11/2012 Patient Education: Patient Medication Summary Completed 11/11/2012 Appointment: Henrietta Lubin WPtel: [address] [place], [place] [id number] WORK IN 08/27/2012 Patient Education: Patient Medication Summary Completed 08/27/2012 Visit Plan: Pt going to get new home BP moniter Continue crestor and restart fish oil and will check fasting lab in 6mos Lab results discussed 05/11/2012 Appointment: Najma Og WPtel: [address] [place], [place] [phone] 05/10 vm FOLLOW UP 05/11/2012 Patient Education: Patient Medication Summary Completed 05/11/2012 Appointment: Najam Og WPtel: [address] [place], [place] [phone] [place] LAB 05/04/2012 Patient Education: Patient Medication Summary Completed 05/04/2012 Visit Plan: 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 and forehead 03/02/2012 Appointment: Najma Og WPtel: [address] [place], [place] [phone] 03/01 OFFICE SURGERY 03/02/2012 Patient Education: Patient Medication Summary Completed 03/02/2012 Visit Plan: Labs discussed--recheck lab end of Feb/mar Continue current meds and continue to moniter BS daily and BP 1-2 times a week Plan on cryotherapy this fall so can wear longsleeves after procedure See urology 12/11/2011 Appointment: Najma Og WPtel: [address] [place] [address] FOLLOW UP 12/11/2011 Patient Education: Patient Medication Summary Completed 12/11/2011 Appointment: Najma Og WPtel: [address] [place], [place] [phone] LAB 10/29/2011 Patient Education: Patient Medication Summary Completed 10/29/2011 Appointment: Najma Og WPtel: [address] [place] [address] BP CHECK 08/14/2011 Patient Education: Patient Medication Summary Completed 08/14/2011 Appointment: Najma Og WPtel: [address] [place], [place] [phone] ACUTE ILLNESS 07/29/2011 Patient Education: Patient Medication Summary Completed 07/29/2011 Appointment: Najma Og WPtel: [address] [place] [address] BP CHECK 07/23/2011 Patient Education: Patient Medication Summary Completed 07/23/2011 Appointment: Najma Og WPtel: [address] [place], [place] [id number] BP CHECK 06/24/2011 Patient Education: Patient Medication Summary Completed 06/24/2011 Appointment: Najma Og WPtel: [address] [place], [place] [phone] [place] BP CHECK 05/20/2011 Patient Education: Patient Medication Summary Completed 05/20/2011 Appointment: Najma Og WPtel: [address] [place] [phone] [place] BP CHECK 04/29/2011 Patient Education: Patient Medication Summary Completed 04/29/2011 Appointment: Najma Og WPtel: [address] [place] [phone] [place] BP CHECK 04/15/2011 Patient Education: Patient Medication Summary Completed 04/15/2011 Visit Plan: Continue current meds Add fi sh oil 1gm daily Glucometer given to use for accuchecks prn 03/18/2011 Appointment: Najma Og WPtel: [address] [place], [place] [phone] [place] FOLLOW UP 03/18/2011 Patient Education: Patient Medication Summary Completed 03/18/2011 Appointment: Najma Og WPtel: [address] [place], [place] [phone] [place] LAB 03/14/2011 Patient Education: Patient Medication Summary Completed 03/14/2011 Appointment: Najma Og WPtel: [address] [place], [place] [phone] [place] LAB 11/11/2010 Appointment: Najma Og WPtel: [address] [place], [place] [id number] [place] UA 11/11/2010 Patient Education: Patient Medication Summary Completed 11/11/2010 Appointment: Najma Og WPtel: [address] [place], [place] [phone] [place] LAB 10/29/2010 Patient Education: Patient Medication Summary Completed 10/29/2010 Appointment: Najma Og WPtel: [address] [place], [place] [phone] [place] FOLLOW UP 07/30/2010 Patient Education: Patient Medication Summary Completed 07/30/2010 Appointment: Najma Og WPtel: [address] [place], [place] [phone] [place] LAB 07/23/2010 Patient Education: Patient Medication Summary Completed 07/23/2010 Appointment: Najma Og WPtel: [address] [place], [place] [phone] [place] LAB 04/26/2010 Patient Education: Patient Medication Summary Completed 04/26/2010 Visit Plan: Add PSA to lab Restart Crest or at 10mg daily Trial of Wellbutrin to aid in smoking cessation Check Lipids and LFTs in 3mos 04/24/2010 Appointment: Najma Og WPtel: [address] [place], [place] [phone] FOLLOW UP 04/24/2010 Patient Education: Patient Medication Summary Completed 04/24/2010 Appointment: Najma Og WPtel: [address] [place], [place] [phone] [place] LAB 04/19/2010 Patient Education: Patient Medication Summary Completed 04/19/2010 Referral: Donavon Keller WPtel: [address] [facility] [place] Referral Completed Instructions Comment . Lab [...]
[2019-10-14] MEDS ORDERED: FENO134C (22:42)
[2019-10-14] MEDS ORDERED: AMLO5TAB9 (22:42)
[2019-10-14] MEDS ORDERED: ESCI10TA55 (22:42)
--- OUTSIDE RECORDS SUMMARY | 2019-10-14 22:42 | XMS REPORT | CCD ---
Author Author Inocente Og D.O. 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 PP Unavailable CCM Unavailable Summary Purpose Interface Exchange Insurance Providers Payer name Policy type / Coverage type Covered green party ID Effective Begin Date Effective End Date [employer] MEDICARE Medicare Part B [id number] Unknown [facility] Medicare Part B [id number] Un known Family history Father Diagnosis Age At Onset Diabetes mellitus Type 2 Unknown Myocardial infarction Unknown Brother Diagnosis Age At Onset Diabetes mellitus Type 2 Unknown Mother Diagnosis Age At Onset Osteoarthritis Unknown Cerebrovascular disease Unknown Social History Social History Element Codes Description Effective Dates Tobacco history SNOMED CT: 776395957 Never smoker 12/21/2014 Marital status Unknown 07/30/2010 [...] hypertension ICD-9: 401.9 ICD-10: I10 07/22/2013 Active Gastro-esophageal reflux disease without esophagitis I CD-9: 530.81 ICD-10: K21.9 06/02/2019 Active Type 2 diabetes mellitus with hyperglycemia ICD-9: 250 .02 ICD-10: E11.65 06/02/2019 Active Mixed hyperlipidemia ICD-9: 272.2 ICD-10: [...] Instructions fenofibrate micronized 134 mg capsule RxNorm: 753050 TA KE 1 CAPSULE BY MOUTH ONCE DAILY FOR TRIGLYCERIDES 07/08/2019 10/05/2019 Active amlodipine 5 mg tablet RxNorm: 314484 TAKE 1 TABLET BY MOUTH ON CE DAILY 06/16/2019 09/13/2019 Active metformin ER 500 mg tablet,extended release 24 hr RxNorm: 86 0975 TAKE 1 TABLET BY MOUTH ONCE DAILY 06/10/2019 09/07/2019 Active propranolol ER 80 mg capsule,24 hr,extended release RxNorm: 105897 TAKE 1 CAPSULE BY MOUTH ONCE DAILY 06/10/2019 09/07/2019 Active Vitamin D3 25 mcg (1,000 unit) capsule RxNorm: 641058 1 Capsule(s) Oral two times a day 06/02/2019 No Stop Date Active turmeric 400 mg capsule RxNorm: 1 Capsule(s) Oral QD 06/02/2019 No Stop Date Active Fish Oil 120 mg-180 mg-500 mg capsule RxNorm: 2 Capsule(s) Ora l QD 06/02/2019 No Stop Date Active 16.2 mg-0.1037 mg-0.0194 mg tablet RxNorm: 0619881 1 Tablet(s) Oral four times a day as needed abdominal pain/diarrhea 06/02/2019 No Stop D ate Active fenofibrate micronized 134 mg capsule RxNorm: 534556 1 Capsule(s) Oral QD for triglycerides 04/14/2019 07/07/2019 Inactive amlodipine 5 mg tablet RxNorm: 999024 TAKE 1 TABLET BY MOUTH ON CE DAILY 03/22/2019 06/15/2019 Inactive metformin ER 500 mg tablet,extended release 24 hr RxNorm: 86 0975 TAKE 1 TABLET BY MOUTH ONCE DAILY 03/15/2019 06/09/2019 Inactive propranolol ER 80 mg capsule,24 hr,extended release RxNorm: 655011 TAKE 1 CAPSULE BY MOUTH ONCE DAILY 03/15/2019 06/09/2019 Inactive amlodipine 5 mg tablet RxNorm: 697289 1 Tablet(s) PO QD 12/27/2018 Inactive fenofibrate micronized 134 mg capsule RxNorm: 164407 TA KE 1 CAPSULE BY MOUTH ONCE DAILY FOR TRIGLYCERIDES 10/11/2018 04/13/2019 Inactive amlodipine 5 mg tablet RxNorm: 121274 1 Tablet(s) PO QD 09/30/2018 Inactive metformin ER 500 mg tablet,extended release 24 hr RxNorm: 86 0975 TAKE 1 TABLET BY MOUTH ONCE DAILY 09/21/2018 03/14/2019 Inactive propranolol ER 80 mg capsule,24 hr,extended release RxNorm: 265136 TAKE 1 CAPSULE BY MOUTH ONCE DAILY 09/21/2018 03/14/2019 Inactive amlodipine 5 mg tablet RxNorm: 591411 1 Tablet(s) PO QD 08/25/2018 Inactive amlodipine 5 mg tablet RxNorm: 878059 1 Tablet(s) PO QD 08/25/2018 Inactive lisinopril 40 mg tablet RxNorm: 420472 TAKE 1 TABLET BY MOUTH O NCE DAILY 07/21/2018 08/24/2018 Inactive fenofibrate micronized 134 mg capsule RxNorm: 811428 TA KE 1 CAPSULE BY MOUTH ONCE DAILY FOR TRIGLYCERIDES 07/12/2018 10/10/2018 Inactive propranolol ER 80 mg capsule,24 hr,extended release RxNorm: 835323 TAKE 1 CAPSULE BY MOUTH ONCE DAILY 06/21/2018 09/20/2018 Inactive lisinopril 40 mg tablet RxNorm: 668495 TAKE 1 TABLET BY MOUTH O NCE DAILY 04/26/2018 07/20/2018 Inactive metformin ER 500 mg tablet,extended release 24 hr RxNorm: 000118 1 Tablet(s) QD 03/31/2018 09/20/2018 Inactive lisinopril 40 mg tablet RxNorm: 335241 TAKE 1 TABLET BY MOUTH O NCE DAILY 01/28/2018 04/25/2018 Inactive Vitamin D3 5,000 unit tablet RxNorm: 648515 1 Tablet(s) PO QD 01/1908/18/2018 Inactive fenofibrate micronized 134 mg capsule RxNorm: 341302 1 Capsule(s) PO QD for triglycerides 01/19/2018 07/11/2018 Inactive metformin ER 500 mg tablet,extended release 24 hr RxNorm: 111371 1 Tablet(s) QD 12/31/2017 03/30/2018 Inactive metformin ER 500 mg tablet,extended release 24 hr RxNorm: 010773 Tablet(s) 12/30/2017 12/30/2017 Inactive propranolol ER 80 mg capsule,24 hr,extended release RxNorm: 023349 1 Capsule(s) PO QD 12/17/2017 06/14/2018 Inactive metformin ER 500 mg tablet,extended release 24 hr RxNorm: 86 0975 1 Tablet(s) PO QD DUE FOR LABS AND APPT 12/02/2017 12/30/2017 Inactive Crestor 10 mg tablet RxNorm: 368304 TAKE ONE TABLET BY MOUTH ON CE DAILY 11/01/2017 01/18/2018 Inactive lisinopril 40 mg tablet RxNorm: 775060 TAKE ONE TABLET BY MOUTH ONCE DAILY [...] ER 80 mg capsule,24 hr,extended release RxNorm: 524520 1 Capsule(s) PO QD DUE FOR APPT 09/08/2017 12/17/2017 Inactive Crestor 10 mg tablet RxNorm: 917996 1 Tablet(s) PO QD T CHELSI ONE TABLET BY MOUTH DAILY 03/11/2017 09/06/2017 Inactive propranolol ER 80 mg capsule,24 hr,extended release RxNorm: 275124 1 Capsule(s) PO QD TAKE ONE CAPSULE BY MOUTH DAILY - REPLACES AMLODOPINE 03/11/2017 09/08/2017 Inactive metformin ER 500 mg tablet,extended release 24 hr RxNorm: 86 0975 1 Tablet(s) PO QD 03/11/2017 09/08/2017 Inactive lisinopril 40 mg tablet RxNorm: 626859 1 Tablet(s) PO QD 03/11/2017 0 09/06/2017 Inactive lisinopril 40 mg tablet RxNorm: 835773 1 Tablet(s) PO QD 02/16/2017 1 05/11/2016 Inactive metformin ER 500 mg tablet,extended release 24 hr RxNorm: 86 0975 1 Tablet(s) PO QD Due for labs and follow up before further refills 02/16/2017 017 Inactive propranolol ER 80 mg capsule,24 hr,extended release RxNorm: 142117 Capsule(s) TAKE ONE CAPSULE BY MOUTH DAILY - REPLACES AMLODOPINE 11/19/20162016 Inactive lisinopril 40 mg tablet RxNorm: 278058 1 Tablet(s) PO QD 11/17/2016 1 04/18/2016 Inactive metformin ER 500 mg tablet,extended release 24 hr RxNorm: 86 0975 1 Tablet(s) PO QD 11/17/2016 02/16/2017 Inactive lisinopril 40 mg tablet RxNorm: 000849 1 Tablet(s) PO Q D TAKE ONE TABLET BY MOUTH DAILY 08/19/2016 11/17/2016 Inactive metformin ER 500 mg tablet,extended release 24 hr RxNorm: 86 0975 Tablet(s) TAKE ONE TABLET BY MOUTH DAILY 08/19/2016 11/16/2016 Inactive propranolol ER 80 mg capsule,24 hr,extended release RxNorm: 392270 Capsule(s) TAKE ONE CAPSULE BY MOUTH DAILY - REPLACES AMLODOPINE 08/19/20162016 Inactive Crestor 10 mg tablet RxNorm: 092104 TAKE ONE TABLET BY MOUTH DAILY 06/16/2016 03/10/2017 Inactive lisinopril 40 mg tablet RxNorm: 741291 1 Tablet(s) PO Q D TAKE ONE TABLET BY MOUTH DAILY 05/23/2016 08/18/2016 Inactive metformin ER 500 mg tablet,extended release 24 hr RxNorm: 86 0975 TAKE ONE TABLET BY MOUTH DAILY 05/23/2016 08/19/2016 Inactive propranolol ER 80 mg capsule,24 hr,extended release RxNorm: 362842 TAKE ONE CAPSULE BY MOUTH DAILY - REPLACES AMLODOPINE 05/23/2016 08/19/2016 [place] [facility] Crestor 10 mg tablet RxNorm: 647608 TAKE ONE TABLET BY MOUTH DAILY 03/31/2016 06/15/2016 Inactive metformin ER 500 mg tablet,extended release 24 hr RxNorm: 86 0975 TAKE ONE TABLET BY MOUTH DAILY 02/19/2016 05/22/2016 Inactive propranolol ER 80 mg capsule,24 hr,extended release RxNorm: 737358 TAKE ONE CAPSULE BY MOUTH DAILY - REPLACES AMLODOPINE 11/23/2015 05/20/2016 [place] [facility] metformin ER 500 mg tablet,extended release 24 hr RxNorm: 86 0975 TAKE ONE TABLET BY MOUTH DAILY 11/08/2015 02/05/2016 Inactive Bactroban Nasal 2 % ointment RxNorm: 740331 Apply topic ally to affected area twice daily 09/10/2015 03/09/2016 Inactive Vibramycin 100 mg capsule RxNorm: 216604 1 Capsule(s) PO BID 201509/23/2015 Inactive lisinopril 40 mg tablet RxNorm: 276834 1 Tablet(s) PO Q D TAKE ONE TABLET BY MOUTH DAILY 08/27/2015 02/22/2016 Inactive metformin ER 500 mg tablet,extended release 24 hr RxNorm: 86 0975 TAKE ONE TABLET BY MOUTH DAILY 08/06/2015 11/03/2015 Inactive Levsin/SL 0.125 mg sublingual tablet RxNorm: 8102713 1 T ablet(s) SL Q4H as needed for stomach cramps 06/29/2015 07/03/2015 Inactive lisinopril 40 mg tablet RxNorm: 397019 Tablet(s) TAKE ONE TABLE T BY MOUTH DAILY 06/07/2015 08/26/2015 Inactive propranolol ER 80 mg capsule,24 hr,extended release RxNorm: 600327 TAKE ONE CAPSULE BY MOUTH DAILY - REPLACES AMLODOPINE 05/30/2015 11/22/2015 [place] [facility] metformin ER 500 mg tablet,extended release 24 hr RxNorm: 86 0975 1 Tablet(s) PO QD 05/10/2015 08/05/2015 Inactive Crestor 10 mg tablet RxNorm: 534446 TAKE ONE TABLET BY MOUTH DAILY 04/18/2015 10/14/2015 Inactive metformin ER 500 mg tablet,extended release 24 hr RxNorm: 86 0975 TAKE ONE TABLET BY MOUTH DAILY 02/07/2015 05/10/2015 Inactive sildenafil 20 mg tablet RxNorm: 756966 1 Tablet(s) PO QD 01/17/2015 1 04/17/2014 Inactive propranolol ER 80 mg capsule,24 hr,extended release RxNorm: 718944 1 Capsule(s) PO QD replaces amlodopine 11/28/2014 05/26/2015 Inactive [[facility] -- BIN:[id number], PCN: [id number], Group: [id number], ID# [id number], Process claim through [employer], for questions: . THIS IS NOT INSURANCE.] lisinopril 40 mg tablet RxNorm: 385273 TAKE ONE TABLET BY MOUTH DAILY 11/16/2014 06/07/2015 Inactive lisinopril 40 mg tablet RxNorm: 990465 1 Tablet(s) PO QD 08/21/2014 0 11/15/2014 Inactive [AttnRPh: Saving apply/adjudicate RxGRP: [id number] RxBIN:[id number] RxPCN: ID#:[id number]] lisinopril 40 mg tablet RxNorm: 727217 1 Tablet(s) PO Q D NEEDS SEEN FOR APPOINTMENT 07/14/2014 08/21/2014 Inactive [AttnRPh: Saving apply/adjudicate RxGRP:SG20 RxBIN:[id number] RxPCN: ID#:[id number]] Crestor 10 mg tablet RxNorm: 033000 TAKE ONE TABLET BY MOUTH EV EILEEN07/06/2014 01/01/2015 Inactive metformin ER 500 mg tablet,extended release 24 hr RxNorm: 86 0975 1 Tablet(s) QD TAKE ONE TABLET BY MOUTH ONCE A DAY 06/09/2014 12/05/2014 Inactive propranolol ER 80 mg capsule,24 hr,extended release RxNorm: 235297 1 Capsule(s) PO QD replaces amlodopine 06/05/2014 11/28/2014 Inactive [[facility] -- BIN:[id number], PCN: [id number], Group: [id number], ID# [id number], Process claim through [employer], for questions: . THIS IS NOT INSURANCE.] propranolol ER 80 mg capsule,24 hr,extended release RxNorm: 992663 1 Capsule(s) PO QD replaces amlodopine 03/07/2014 06/05/2014 Inactive [[facility] -- BIN:[id number], PCN: [id number], Group: [id number], ID# [id number], Process claim through [employer], for questions: . THIS IS NOT INSURANCE.] metformin ER 500 mg tablet,extended release 24 hr RxNorm: 86 0975 TAKE ONE TABLET BY MOUTH ONCE A DAY 12/15/2013 06/09/2014 Inactive propranolol ER 80 mg capsule,24 hr,extended release RxNorm: 644159 1 Capsule(s) PO QD replaces amlodopine 12/09/2013 03/07/2014 Inactive [[facility] -- BIN:[id number], PCN: [id number], Group: [id number], ID# [id number], Process claim through [employer], for questions: . THIS IS NOT INSURANCE.] acyclovir 800 mg tablet RxNorm: 144803 1 Tablet(s) PO QID 09/23/2013 09/29/2013 Inactive gabapentin 300 mg capsule RxNorm: 486158 1 Capsule(s) PO BID 201310/07/2013 Inactive metformin ER 500 mg tablet,extended release 24 hr RxNorm: 86 0975 1 Tablet(s) PO QD 09/19/2013 12/14/2013 Inactive propranolol ER 80 mg capsule,24 hr,extended release RxNorm: 265580 1 Capsule(s) PO QD replaces amlodopine 09/15/2013 12/09/2013 Inactive metformin ER 500 mg 24 hr tablet,extended release RxNorm: 86 0975 1 Tablet(s) PO QD 09/15/2013 09/18/2013 Inactive lisinopril 40 mg tablet RxNorm: 034233 1 Tablet(s) PO QD 07/19/2013 0 07/14/2014 Inactive Crestor 10 mg tablet RxNorm: 700957 Tablet(s) PO TAKE O NE TABLET BY MOUTH EVERY DAY 07/12/2013 07/05/2014 Inactive propranolol ER 80 mg capsule,24 hr,extended release RxNorm: 847514 1 Capsule(s) PO QD replaces amlodopine 06/20/2013 09/15/2013 Inactive triamcinolone acetonide 0.1 % topical ointment RxNorm: 22339 36 Application TOP BID 06/20/2013 06/26/2013 Inactive Crestor 10 mg tablet RxNorm: 041636 1 Tablet(s) PO QD 04/18/201310/2013 Inactive Viagra 100 mg tablet RxNorm: 052642 1 Tablet(s) PO as directed 01/0508/18/2018 Inactive TAKE ONE TABLET BY MOUTH DIRECTED Crestor 10 mg tablet RxNorm: 088662 1 Tablet(s) PO QD 01/17/201304/06 Inactive metformin ER 500 mg tablet,extended release 24 hr RxNorm: 86 0975 1 Tablet(s) PO QD TAKE ONE TABLET BY MOUTH EVERY DAY 12/23/2012 09/15/2013 Inactive triamcinolone acetonide 0.1 % topical ointment RxNorm: 74125 36 Application TOP BID 08/27/2012 09/02/2012 Inactive ketoconazole 2 % topical cream RxNorm: 673767 1 Application TOP QAM 08/27/2012 09/02/2012 Inactive lisinopril 40 mg tablet RxNorm: 302473 1 Tablet(s) PO QD 07/21/2012 0 07/15/2013 Inactive Crestor 10 mg tablet RxNorm: 290021 1 Tablet(s) PO QD 07/21/201210/04 Inactive amlodipine 10 mg tablet RxNorm: 112345 1 Tablet(s) PO QHS 07/21/2012 07/15/2013 Inactive metformin ER 500 mg tablet,extended release 24 hr RxNorm: 86 0977 Tablet(s) PO TAKE ONE TABLET BY MOUTH EVERY DAY 03/31/2012 12/22/2012 Inactive lisinopril 40 mg tablet RxNorm: 325154 1 Tablet(s) PO QD 07/29/2011 0 07/20/2012 Inactive amlodipine 10 mg tablet RxNorm: 948681 1 Tablet(s) PO QHS 07/29/2011 07/20/2012 Inactive amlodipine 10 mg Tab RxNorm: 922863 1 Tablet(s) PO QHS 07/29/2011 Inactive Viagra 100 mg tablet RxNorm: 586274 1 Tablet(s) PO as directed 07/0601/24/2013 Inactive TAKE ONE TABLET BY MOUTH DIRECTED Crestor 10 mg tablet RxNorm: 184520 1 Tablet(s) PO QD 07/29/201107/05 Inactive Norvasc 5 mg Tab RxNorm: 462024 1 Tablet(s) PO QD 07/16/2011 07/28/19 12 Inactive Norvasc 5 mg Tab RxNorm: 445942 1 Tablet(s) PO QD 06/26/2011 07/15/19 12 Inactive lisinopril 40 mg Tab RxNorm: 595415 1 Tablet(s) PO QD 05/13/201107/06 Inactive metformin ER 500 mg tablet,extended release 24 hr RxNorm: 86 0977 1 Tablet(s) PO QD 03/18/2011 07/28/2011 Inactive Crestor 10 mg Tab RxNorm: 486158 1 Tablet(s) PO QHS 01/27/20112011 Inactive metformin ER 500 mg 24 hr Tab RxNorm: 127423 1 Tablet(s) PO QD 11/0403/17/2011 Inactive Viagra 100 mg Tab RxNorm: 457125 Tablet(s) PO TAKE ON E TABLET BY MOUTH DIRECTED 08/26/2010 07/28/2011 Inactive metformin ER 500 mg 24 hr Tab RxNorm: 565381 1 Tablet(s) PO QD 07/0611/18/2010 Inactive Crestor 10 mg Tab RxNorm: 971708 1 Tablet(s) PO QHS 07/30/20102010 Inactive Crestor 10 mg Tab RxNorm: 552286 1 Tablet(s) PO QHS 05/20/20102010 Inactive Wellbutrin SR 150 mg Tab RxNorm: 987217 1 Tablet(s) PO QAM 04/24/19 11 07/22/2010 Inactive Multivitamin And Mineral tablet RxNorm: 1 Tablet(s) PO QD No Start Date Active FreeStyle Lite Strips RxNorm: 1 Unit Dose Miscel laneous AC & HS check blood sugar AC and HS No Start Date Active Co Q-10 200 mg capsule RxNorm: 698254 1 Capsule(s) PO QD No Start Date Active lancets RxNorm: 1 Milliliter(s) Miscellaneous AC & HS No Start Robert e Active Vitamin D3 4,000 unit capsule RxNorm: 7919974 1 Capsule(s) PO QD No Start Date 07/08/2016 Inactive Fish Oil 360 mg-1,200 mg capsule RxNorm: 550188 2 Capsule(s) PO QD No Start Date 01/30/2019 Inactive hydrocodone 5 mg-acetaminophen 325 mg tablet RxNorm: 211989 1 Tablet(s) PO Q4H as needed for severe pain No Start Date 12/30/2015 Inactive Xanax 0.25 mg tablet RxNorm: 560091 1/2 Tablet(s) PO PRN for se andrea stress No Start Date 07/08/2016 Inactive lisinopril 40 mg Tab RxNorm: 813737 1 Tablet(s) PO QD No Start Date 0 05/12/2011 Inactive Fish Oil 1,000 mg capsule RxNorm: 1 Capsule(s) PO QD No Start Date 09/18/2014 Inactive naproxen 500 mg Tab RxNorm: 265024 1 Tablet(s) PO BID No Start Date 0 07/28/2011 Inactive aspirin 81 mg tablet RxNorm: 439806 1 Tablet(s) PO QD No Start Date 0 05/09/2018 Inactive Crestor 10 mg Tab RxNorm: 830916 1 Tablet(s) PO QD No Start Date 07/06 Inactive Crestor 5 mg tablet RxNorm: 038109 1 Tablet(s) PO QD No Start Date Inactive Fish Oil Oral RxNorm: Oral No Start Date 09/18/2014 Inactive Viagra 100 mg Tab RxNorm: 804988 1 Tablet(s) PO as directed No Star [...] Date S vic Location GLYCOSYLATED HEMOGLOBIN TEST 78913 Hgb A1c 97851-0 6.7 % 0 05/24/2019 Unknown COMPREHENSIVE METABOLIC 15617 AST 21 U/L 2019 Unknown COMPREHENSIVE METABOLIC 56023 ALT 26 U/L 2019 Unknown COMPREHENSIVE METABOLIC 81703 BUN 14 mg/dL 2019 Unknown COMPREHENSIVE METABOLIC 50989 ALBUMIN 4.4 g/dL 2019 Unknown COMPREHENSIVE METABOLIC 18954 CHLORIDE 102 mmol/L 05/24 Unknown COMPREHENSIVE METABOLIC 97725 Bili Total 0.4 mg/dL 05/24 Unknown COMPREHENSIVE METABOLIC 84219 ALK PHOS 55 U/L 2019 Unknown COMPREHENSIVE METABOLIC 00792 SODIUM 139 mmol/L 05/24 Unknown COMPREHENSIVE METABOLIC 81931 CREATININE 1.28 mg/dL 05/07 Unknown COMPREHENSIVE METABOLIC 19279 CALCIUM 9.7 mg/dL 2019 Unknown COMPREHENSIVE METABOLIC 56940 POTASSIUM 4.7 mmol/L 05/24 Unknown COMPREHENSIVE METABOLIC 13454 Total Protein 6.8 g/dL Unknown COMPREHENSIVE METABOLIC 80747 Glucose 130 mg/dL 2019 Unknown COMPREHENSIVE METABOLIC 74639 Bicarbonate 29 mmol/L 05/07 Unknown COMPREHENSIVE METABOLIC 37854 AGAP 8 mmol/L 2019 Unknown MEAN GLUC 1832205 Calc Mean Gluc 146 mg/dL 05/24/2019 Unkn own GFR CALC [id number] GFR Non Afr Amr 56 mL/min 05/24/2019 Unk nown GFR CALC 7424855 GFR Afr Amr >60 mL/min 05/24/2019 Unknow n MEAN GLUC 3724703 Calc Mean Gluc 140 mg/dL 01/26/2019 Unkn own GLYCOSYLATED HEMOGLOBIN TEST 54503 Hgb A1c 26862-9 6.5 % 1 Unknown COMPREHENSIVE METABOLIC 49527 AST 17 U/L 2018 Unknown COMPREHENSIVE METABOLIC 45022 ALT 19 U/L 2018 Unknown COMPREHENSIVE METABOLIC 27752 BUN 19 mg/dL 2018 Unknown COMPREHENSIVE METABOLIC 88163 ALBUMIN 4.3 g/dL 2018 Unknown COMPREHENSIVE METABOLIC 24797 CHLORIDE 103 mmol/L 01/26 Unknown COMPREHENSIVE METABOLIC 29161 Bili Total 0.6 mg/dL 01/26 Unknown COMPREHENSIVE METABOLIC 39929 ALK PHOS 60 U/L 2018 Unknown COMPREHENSIVE METABOLIC 36490 SODIUM 140 mmol/L 01/26 Unknown COMPREHENSIVE METABOLIC 00228 CREATININE 1.21 mg/dL 01/05 Unknown COMPREHENSIVE METABOLIC 36807 CALCIUM 9.6 mg/dL 2018 Unknown COMPREHENSIVE METABOLIC 71649 POTASSIUM 4.5 mmol/L 01/26 Unknown COMPREHENSIVE METABOLIC 98793 Total Protein 6.7 g/dL Unknown COMPREHENSIVE METABOLIC 80844 Glucose 111 mg/dL 2018 Unknown COMPREHENSIVE METABOLIC 03184 Bicarbonate 28 mmol/L 01/05 Unknown COMPREHENSIVE METABOLIC 21125 AGAP 9 mmol/L 2018 Unknown COMPLETE BLOOD COUNT [id number] WBC 10.7 10e9/L 019 Unknown COMPLETE BLOOD COUNT [id number] RBC 4.38 10e12/L 2018 Unknown COMPLETE BLOOD COUNT [id number] HEMOGLOBIN 13.7 g/dL 01/27/20 19 Unknown COMPLETE BLOOD COUNT [id number] HEMATOCRIT 42.0 % 01/27/20 19 Unknown COMPLETE BLOOD COUNT [id number] MCV 95.9 fL 9 Unknown COMPLETE BLOOD COUNT [id number] MCH 31.3 pg 9 Unknown COMPLETE BLOOD COUNT 0271062 MCHC 32.6 g/dL 9 Unknown COMPLETE BLOOD COUNT [id number] PLATELET COUNT 232 10e9/L Unknown COMPLETE BLOOD COUNT [id number] Mean Plt Volume 11.4 fL Unknown COMPLETE BLOOD COUNT 2960802 Neut Auto 68.7 % 9 Unknown COMPLETE BLOOD COUNT [id number] Lymph Auto 21.2 % 01/27/20 19 Unknown COMPLETE BLOOD COUNT [id number] [place] Auto 8.1 % 9 Unknown COMPLETE BLOOD COUNT 8409044 Eos Auto 1.8 % 9 Unknown COMPLETE BLOOD COUNT 2501102 RDW 14.1 % 9 Unknown COMPLETE BLOOD COUNT 7379697 Baso Auto 0.2 % 9 Unknown COMPLETE BLOOD COUNT 7132110 Neutrophil Abs 7.35 10e9/L Unknown COMPLETE BLOOD COUNT [id number] Lymphocyte Abs 2.27 10e9/L Unknown COMPLETE BLOOD COUNT 3331600 Monocyte Abs 0.87 10e9/L 01/05 Unknown COMPLETE BLOOD COUNT [id number] Eosinophil Abs 0.19 10e9/L Unknown COMPLETE BLOOD COUNT [id number] RDW-SD 47.7 fL 9 Unknown COMPLETE BLOOD COUNT [id number] Basophil Abs 0.02 10e9/L 01/05 Unknown GFR CALC [id number] GFR Non Afr Amr 59 mL/min 01/26/2019 Unk nown GFR CALC 7257201 GFR Afr Amr >60 mL/min 01/26/2019 Unknow n LIPID GROUP 03390 Cholesterol 215 mg/dL 01/26/2019 Unkno wn LIPID GROUP 26958 Triglyceride 221 mg/dL 01/26/2019 Unkn own L[facility] GROUP 26093 HDL CHOLESTEROL 41 mg/dL 01/26/2019 U nknown LIPID GROUP 82575 Chol/HDL Ratio 5.24 ratio 01/26/2019 U nknown LIPID GROUP 80757 NON-HDL Chol 174 mg/dL 01/26/2019 Unkn own LIPID GROUP 82300 LDL Cholesterol 130 mg/dL 01/26/2019 [place] [address] Glucose 104 mg/dL 09/30 [place] [address] CREATININE 1.18 mg/dL [place] [address] BUN 19 mg/dL 09/30 [place] [address] SODIUM 139 mmol/L 09/05 [place] [address] POTASSIUM 4.1 mmol/L 09/05 [place] [address] CHLORIDE 105 mmol/L 09/05 [place] [address] Bicarbonate 26 mmol/L [place] [address] AGAP 8 mmol/L 09/30 [place] [address] CALCIUM 9.3 mg/dL 09/30 Unknown GFR CALC 7450988 GFR Non Afr Amr >60 mL/min 09/30/2018 Un known GFR CALC 4841723 GFR Afr Amr >60 mL/min 09/30/2018 Unknow n MICROALBUMIN URINE RANDOM 09941 U Microalbumin <2.0 mg/L 08/19/2018 Unknown MICROALBUMIN URINE RANDOM 10199 U Creatinine 66 mg/dL 0 08/19/2018 Unknown MICROALBUMIN URINE RANDOM 30026 ALB/CR Ratio <3.0 mg/gCR 08/19/2018 Unknown COMPREHENSIVE METABOLIC 77052 AST 21 U/L 2018 Unknown COMPREHENSIVE METABOLIC 90212 ALT 20 U/L 2018 Unknown COMPREHENSIVE METABOLIC 57962 BUN 31 mg/dL 2018 Unknown COMPREHENSIVE METABOLIC 13772 ALBUMIN 4.4 g/dL 2018 Unknown COMPREHENSIVE METABOLIC 93446 CHLORIDE 105 mmol/L 08/16 Unknown COMPREHENSIVE METABOLIC 56360 Bili Total 0.5 mg/dL 08/16 Unknown COMPREHENSIVE METABOLIC 03333 ALK PHOS 40 U/L 2018 Unknown COMPREHENSIVE METABOLIC 36361 SODIUM 140 mmol/L 08/16 Unknown COMPREHENSIVE METABOLIC 59964 CREATININE 1.45 mg/dL 08/04 Unknown COMPREHENSIVE METABOLIC 69167 CALCIUM 9.8 mg/dL 2018 Unknown COMPREHENSIVE METABOLIC 54008 POTASSIUM 5.1 mmol/L 08/16 Unknown COMPREHENSIVE METABOLIC 67090 Total Protein 6.9 g/dL Unknown COMPREHENSIVE METABOLIC 18596 Glucose 110 mg/dL 2018 Unknown COMPREHENSIVE METABOLIC 11182 Bicarbonate 25 mmol/L 08/04 Unknown COMPREHENSIVE METABOLIC 85423 AGAP 10 mmol/L 2018 Unknown GFR CALC 9265944 GFR Afr Amr 58 mL/min 08/16/2018 Unknown GFR CALC 6934005 GFR Non Afr Amr 48 mL/min 08/16/2018 Unk nown GLYCOSYLATED HEMOGLOBIN TEST 25131 Hgb A1c 42179-4 5.9 % 0 08/16/2018 Unknown LIP[facility] GROUP 04556 Cholesterol 226 mg/dL 08/16/2018 Unkno wn LIPID GROUP 74264 Triglyceride 335 mg/dL 08/16/2018 Unkn own LIPID GROUP 94013 HDL CHOLESTEROL 32 mg/dL 08/16/2018 U nknown LIPID GROUP 69161 Chol/HDL Ratio 7.06 ratio 08/16/2018 U nknown LIP[facility] GROUP 59672 NON-HDL Chol 194 mg/dL 08/16/2018 Unkn own LIP[facility] GROUP 04129 LDL Cholesterol 127 mg/dL 08/16/2018 U nknown THYROID STIMULATING HORMONE 61362 TSH 2.475 uIU/mL 08/16/2018 Unknown COMPLETE BLOOD COUNT 3685253 WBC 7.5 10e9/L 08/17/19 19 Unknown COMPLETE BLOOD COUNT [id number] RBC 4.09 10e12/L 2018 Unknown COMPLETE BLOOD COUNT 3228375 HEMOGLOBIN 12.9 g/dL 08/17/19 19 Unknown COMPLETE BLOOD COUNT 8350132 HEMATOCRIT 40.0 % 08/17/19 19 Unknown COMPLETE BLOOD COUNT 7470231 MCV 97.8 fL 9 Unknown COMPLETE BLOOD COUNT 6744155 MCH 31.5 pg 9 Unknown COMPLETE BLOOD COUNT 1573292 MCHC 32.3 g/dL 9 Unknown COMPLETE BLOOD COUNT 6797441 PLATELET COUNT 258 10e9/L Unknown COMPLETE BLOOD COUNT 8535078 Mean Plt Volume 11.4 fL Unknown COMPLETE BLOOD COUNT 0064234 Neut Auto 62.9 % 9 Unknown COMPLETE BLOOD COUNT 2755857 Lymph Auto 27.3 % 08/17/19 19 Unknown COMPLETE BLOOD COUNT 3091105 [place] Auto 8.2 % 9 Unknown COMPLETE BLOOD COUNT [id number] RDW 13.3 % 9 Unknown COMPLETE BLOOD COUNT [id number] Eos Auto 1.5 % 9 Unknown COMPLETE BLOOD COUNT [id number] Baso Auto 0.1 % 9 Unknown COMPLETE BLOOD COUNT [id number] Neutrophil Abs 4.72 10e9/L Unknown COMPLETE BLOOD COUNT [id number] Lymphocyte Abs 2.05 10e9/L Unknown COMPLETE BLOOD COUNT [id number] Monocyte Abs 0.62 10e9/L 08/04 Unknown COMPLETE BLOOD COUNT [id number] Eosinophil Abs 0.11 10e9/L Unknown COMPLETE BLOOD COUNT [id number] RDW-SD 46.7 fL 9 Unknown COMPLETE BLOOD COUNT [id number] Basophil Abs 0.01 10e9/L 08/04 Unknown MEAN GLUC [id number] Calc Mean Gluc 123 mg/dL 08/16/2018 Unkn own [facility] 05224 Cholesterol 212 mg/dL 05/05/2018 Unkno wn [facility] 72118 Triglyceride 271 mg/dL 05/05/2018 Unkn own [facility] 44414 HDL CHOLESTEROL 38 mg/dL 05/05/2018 U nknown [facility] 12188 Chol/HDL Ratio 5.58 ratio 05/05/2018 U nknown LIPID GROUP 31871 NON-HDL Chol 174 mg/dL 05/05/2018 [facility] own LIPID GROUP 95739 LDL Cholesterol 120 mg/dL 05/05/2018 U nknown GFR CALC [id number] GFR Non Afr Amr 49 mL/min 05/05/2018 Unk nown GFR CALC [id number] GFR Afr Amr 59 mL/min 05/05/2018 Unknown GLYCOSYLATED HEMOGLOBIN TEST 11926 Hgb A1c 07306-1 6.0 % 0 05/05/2018 Unknown MEAN GLUC 7392342 Calc Mean Gluc 126 mg/dL 05/05/2018 [facility]kn own COMPREHENSIVE METABOLIC 50709 AST 18 U/L 2018 Unknown COMPREHENSIVE METABOLIC 46215 ALT 23 U/L 2018 Unknown COMPREHENSIVE METABOLIC 24482 BUN 30 mg/dL 2018 Unknown COMPREHENSIVE METABOLIC 83165 ALBUMIN 4.3 g/dL 2018 Unknown COMPREHENSIVE METABOLIC 42867 CHLORIDE 106 mmol/L 05/05 Unknown COMPREHENSIVE METABOLIC 40684 Bili Total 0.4 mg/dL 05/05 Unknown COMPREHENSIVE METABOLIC 80395 ALK PHOS 39 U/L 2018 Unknown COMPREHENSIVE METABOLIC 57882 SODIUM 139 mmol/L 05/05 Unknown COMPREHENSIVE METABOLIC 68281 CREATININE 1.44 mg/dL 04/08 Unknown COMPREHENSIVE METABOLIC 77076 CALCIUM 9.6 mg/dL 2018 Unknown COMPREHENSIVE METABOLIC 09650 POTASSIUM 4.7 mmol/L 05/05 Unknown COMPREHENSIVE METABOLIC 71682 Total Protein 6.6 g/dL Unknown COMPREHENSIVE METABOLIC 08666 Glucose 112 mg/dL 2018 Unknown COMPREHENSIVE METABOLIC 18780 Bicarbonate 28 mmol/L 04/08 Unknown COMPREHENSIVE METABOLIC 19295 AGAP 5 mmol/L 2018 Unknown THYROID STIMULATING HORMONE 00234 TSH 3.725 uIU/mL 05/05/2018 Unknown COMPLETE BLOOD COUNT 9287661 WBC 8.2 10e9/L 05/05/19 19 Unknown COMPLETE BLOOD COUNT [id number] RBC 4.02 10e12/L 2018 Unknown COMPLETE BLOOD COUNT [id number] HEMOGLOBIN 12.7 g/dL 05/05/19 19 Unknown COMPLETE BLOOD COUNT 0639842 HEMATOCRIT 39.3 % 05/05/19 19 Unknown COMPLETE BLOOD COUNT [id number] MCV 97.8 fL 9 Unknown COMPLETE BLOOD COUNT 4326487 MCH 31.6 pg 9 Unknown COMPLETE BLOOD COUNT 9576100 MCHC 32.3 g/dL 9 Unknown COMPLETE BLOOD COUNT [id number] PLATELET COUNT 213 10e9/L Unknown COMPLETE BLOOD COUNT 1017817 Mean Plt Volume 11.7 fL Unknown COMPLETE BLOOD COUNT 8495283 Neut Auto 55.7 % 9 Unknown COMPLETE BLOOD COUNT [id number] Lymph Auto 33.2 % 05/05/19 19 Unknown COMPLETE BLOOD COUNT 7692492 [place] Auto 8.5 % 9 Unknown COMPLETE BLOOD COUNT 6028764 Eos Auto 2.4 % 9 Unknown COMPLETE BLOOD COUNT 9186617 RDW 13.9 % 9 Unknown COMPLETE BLOOD COUNT [id number] Baso Auto 0.2 % 9 Unknown COMPLETE BLOOD COUNT 3532109 Neutrophil Abs 4.57 10e9/L Unknown COMPLETE BLOOD COUNT 8055609 Lymphocyte Abs 2.72 10e9/L Unknown COMPLETE BLOOD COUNT [id number] Monocyte Abs 0.70 10e9/L 04/08 Unknown COMPLETE BLOOD COUNT 1006570 Eosinophil Abs 0.20 10e9/L Unknown COMPLETE BLOOD COUNT [id number] RDW-SD 48.8 fL 9 Unknown COMPLETE BLOOD COUNT [id number] Basophil Abs 0.02 10e9/L 04/08 Unknown MICROALBUMIN URINE RANDOM 20532 U Microalbumin 19.3 mg/L 01/19/2018 Unknown MICROALBUMIN URINE RANDOM 84045 U Creatinine 96 mg/dL 1 Unknown MICROALBUMIN URINE RANDOM 72482 ALB/CR Ratio 20.1 mg/gCR 01/19/2018 Unknown LIPID GROUP 15603 Cholesterol 173 mg/dL 01/13/2018 [facility] wn LIPID GROUP 24271 Triglyceride 386 mg/dL 01/13/2018 [facility] LIPID GROUP 39786 HDL CHOLESTEROL 37 mg/dL 01/13/2018 U nknown LIPID GROUP 74508 Chol/HDL Ratio 4.68 ratio 01/13/2018 U nknown LIPID GROUP 92053 NON-HDL Chol 136 mg/dL 01/13/2018 [facility] LIPID GROUP 81257 LDL Cholesterol 59 mg/dL 01/13/2018 U nknown COMPLETE BLOOD COUNT [id number] WBC TNP:Client Request 01/13/2018 Unknown COMPLETE BLOOD COUNT 3337270 RBC TNP:Client Request 01/13/2018 Unknown COMPLETE BLOOD COUNT 7983582 HEMOGLOBIN TNP:Client Request 01/13/2018 Unknown COMPLETE BLOOD COUNT 4575102 HEMATOCRIT TNP:Client Request 01/13/2018 Unknown COMPLETE BLOOD COUNT [id number] MCV TNP:Client Request 01/13/2018 Unknown COMPLETE BLOOD COUNT 0024370 MCH TNP:Client Request 01/13/2018 Unknown COMPLETE BLOOD COUNT 0040563 MCHC TNP:Client Request 01/13/2018 Unknown COMPLETE BLOOD COUNT [id number] PLATELET COUNT TNP:Client Req uest 01/13/2018 Unknown COMPLETE BLOOD COUNT 7723175 Mean Plt Volume TNP:Client Re quest 01/13/2018 Unknown COMPLETE BLOOD COUNT [id number] Neut Auto TNP:Client Request 01/13/2018 Unknown COMPLETE BLOOD COUNT [id number] Lymph Auto TNP:Client Request 01/13/2018 Unknown COMPLETE BLOOD COUNT [id number] [place] Auto TNP:Client Request 01/13/2018 Unknown COMPLETE BLOOD COUNT [id number] RDW TNP:Client Request 01/13/2018 Unknown COMPLETE BLOOD COUNT [id number] Eos Auto TNP:Client Request 01/13/2018 Unknown COMPLETE BLOOD COUNT [id number] Baso Auto TNP:Client Request 01/13/2018 Unknown COMPLETE BLOOD COUNT [id number] Neutrophil Abs TNP:Client Req uest 01/13/2018 Unknown COMPLETE BLOOD COUNT 8082005 Lymphocyte Abs TNP:Client Req uest 01/13/2018 Unknown COMPLETE BLOOD COUNT [id number] Monocyte Abs TNP:Client Reque st 01/13/2018 Unknown COMPLETE BLOOD COUNT [id number] Eosinophil Abs TNP:Client Req uest 01/13/2018 Unknown COMPLETE BLOOD COUNT [id number] RDW-SD TNP:Client Request 01/13/2018 Unknown COMPLETE BLOOD COUNT [id number] Basophil Abs TNP:Client Reque st 01/13/2018 Unknown GLYCOSYLATED HEMOGLOBIN TEST 18587 Hgb A1c 70827-3 6.2 % 1 Unknown THYROID STIMULATING HORMONE 74633 TSH 2.764 uIU/mL 01/13/2018 Unknown COMPREHENSIVE METABOLIC 47591 AST 19 U/L 2017 Unknown COMPREHENSIVE METABOLIC 82507 ALT 21 U/L 2017 Unknown COMPREHENSIVE METABOLIC 27746 BUN 16 mg/dL 2017 Unknown COMPREHENSIVE METABOLIC 68226 ALBUMIN 4.2 g/dL 2017 Unknown COMPREHENSIVE METABOLIC 16356 CHLORIDE 105 mmol/L 01/13 Unknown COMPREHENSIVE METABOLIC 36998 Bili Total 0.5 mg/dL 01/13 Unknown COMPREHENSIVE METABOLIC 20341 ALK PHOS 85 U/L 2017 Unknown COMPREHENSIVE METABOLIC 36257 SODIUM 139 mmol/L 01/13 Unknown COMPREHENSIVE METABOLIC 48400 CREATININE 1.07 mg/dL 01/04 Unknown COMPREHENSIVE METABOLIC 24847 CALCIUM 9.2 mg/dL 2017 Unknown COMPREHENSIVE METABOLIC 73230 POTASSIUM 4.4 mmol/L 01/13 Unknown COMPREHENSIVE METABOLIC 45686 Total Protein 7.7 g/dL Unknown COMPREHENSIVE METABOLIC 23724 Glucose 130 mg/dL 2017 Unknown COMPREHENSIVE METABOLIC 13346 Bicarbonate 27 mmol/L 01/04 Unknown COMPREHENSIVE METABOLIC 54878 AGAP 7 mmol/L 2017 Unknown PSA EQUIMOLAR JERSON 43659 PSA Total 1.16 ng/mL 8 Unknown MEAN GLUC 8886325 Calc Mean Gluc 131 mg/dL 01/13/2018 [facility] own GFR CALC 2439836 GFR Afr Amr >60 mL/min 01/13/2018 Unknow n GFR CALC 4237824 GFR Non Afr Amr >60 mL/min 01/13/2018 Un known MEAN GLUC 5350215 Calc Mean Gluc 134 mg/dL 10/06/2017 Unkn own GFR CALC 3763159 GFR Afr Amr >60 mL/min 10/06/2017 Unknow n GFR CALC 3741344 GFR Non Afr Amr >60 mL/min 10/06/2017 Un known GLYCOSYLATED HEMOGLOBIN TEST 75860 Hgb A1c 07584-2 6.3 % 0 10/06/2017 Unknown VITAMIN B 12 83925 VITAMIN B12 1202 pg/mL 10/06/2017 Unk nown COMPLETE BLOOD COUNT 1447424 WBC 7.4 10e9/L 10/07/19 18 Unknown COMPLETE BLOOD COUNT [id number] RBC 4.24 10e12/L 2017 Unknown COMPLETE BLOOD COUNT 8469223 HEMOGLOBIN 13.5 g/dL 10/07/19 18 Unknown COMPLETE BLOOD COUNT 9829127 HEMATOCRIT 41.6 % 10/07/19 18 Unknown COMPLETE BLOOD COUNT 9978085 MCV 98.1 fL 8 Unknown COMPLETE BLOOD COUNT 8978423 MCH 31.8 pg 8 Unknown COMPLETE BLOOD COUNT 7061798 MCHC 32.5 g/dL 8 Unknown COMPLETE BLOOD COUNT 1585010 PLATELET COUNT 223 10e9/L 06/2017 Unknown COMPLETE BLOOD COUNT 6052510 Mean Plt Volume 11.9 fL 06/2017 Unknown COMPLETE BLOOD COUNT 1548076 Neut Auto 58.0 % 8 Unknown COMPLETE BLOOD COUNT 7806427 Lymph Auto 29.7 % 10/07/19 18 Unknown COMPLETE BLOOD COUNT 5703100 [place] Auto 8.3 % 8 Unknown COMPLETE BLOOD COUNT 2477013 Eos Auto 3.7 % 8 Unknown COMPLETE BLOOD COUNT 1503299 RDW 14.0 % 8 Unknown COMPLETE BLOOD COUNT 1818243 Baso Auto 0.3 % 8 Unknown COMPLETE BLOOD COUNT 9042690 Neutrophil Abs 4.29 10e9/L Unknown COMPLETE BLOOD COUNT [id number] Lymphocyte Abs 2.20 10e9/L Unknown COMPLETE BLOOD COUNT 4678033 Monocyte Abs 0.61 10e9/L 06/2017 Unknown COMPLETE BLOOD COUNT 6456591 Eosinophil Abs 0.27 10e9/L Unknown COMPLETE BLOOD COUNT 0764420 Basophil Abs 0.02 10e9/L 06/2017 Unknown COMPLETE BLOOD COUNT 1020141 RDW-SD 48.6 fL 8 Unknown LIPID GROUP 96595 Cholesterol 216 mg/dL 10/06/2017 [facility] wn LIPID GROUP 69363 Triglyceride 335 mg/dL 10/06/2017 [facility] LIPID GROUP 26599 HDL CHOLESTEROL 33 mg/dL 10/06/2017 U nknown LIPID GROUP 94924 Chol/HDL Ratio 6.55 ratio 10/06/2017 U nknown LIPID GROUP 40511 NON-HDL Chol 183 mg/dL 10/06/2017 [facility] own LIPID GROUP 11647 LDL Cholesterol 116 mg/dL 10/06/2017 U nknown COMPREHENSIVE METABOLIC 30060 AST 15 U/L 2017 Unknown COMPREHENSIVE METABOLIC 74737 ALT 15 U/L 2017 Unknown COMPREHENSIVE METABOLIC 77603 BUN 21 mg/dL 2017 Unknown COMPREHENSIVE METABOLIC 68184 ALBUMIN 4.1 g/dL 2017 Unknown COMPREHENSIVE METABOLIC 04515 CHLORIDE 107 mmol/L 10/06 Unknown COMPREHENSIVE METABOLIC 09576 Bili Total 0.6 mg/dL 10/06 Unknown COMPREHENSIVE METABOLIC 99958 ALK PHOS 68 U/L 2017 Unknown COMPREHENSIVE METABOLIC 58600 SODIUM 140 mmol/L 10/06 Unknown COMPREHENSIVE METABOLIC 75645 CREATININE 1.12 mg/dL 06/2017 Unknown COMPREHENSIVE METABOLIC 29060 CALCIUM 9.7 mg/dL 2017 Unknown COMPREHENSIVE METABOLIC 71535 POTASSIUM 4.6 mmol/L 10/06 Unknown COMPREHENSIVE METABOLIC 50061 Total Protein 6.6 g/dL Unknown COMPREHENSIVE METABOLIC 55223 Glucose 114 mg/dL 2017 Unknown COMPREHENSIVE METABOLIC 61150 Bicarbonate 26 mmol/L 06/2017 Unknown COMPREHENSIVE METABOLIC 03405 AGAP 7 mmol/L 2017 Unknown GLYCOSYLATED HEMOGLOBIN TEST 25388 Hgb A1c 23102-8 6.1 % 1 05/05/2016 Unknown GFR CALC 7361498 GFR Afr Amr >60 mL/min 03/05/2017 Unknow n GFR CALC 9545916 GFR Non Afr Amr >60 mL/min 03/05/2017 Un known MEAN GLUC 1428273 Calc Mean Gluc 128 mg/dL 03/05/2017 Unkn own COMPREHENSIVE METABOLIC 19905 AST 18 U/L 2016 Unknown COMPREHENSIVE METABOLIC 87202 ALT 20 U/L 2016 Unknown COMPREHENSIVE METABOLIC 30326 BUN 15 mg/dL 2016 Unknown COMPREHENSIVE METABOLIC 74538 ALBUMIN 4.3 g/dL 2016 Unknown COMPREHENSIVE METABOLIC 72002 CHLORIDE 105 mmol/L 03/05 Unknown COMPREHENSIVE METABOLIC 28501 Bili Total 0.5 mg/dL 03/05 Unknown COMPREHENSIVE METABOLIC 02914 ALK PHOS 57 U/L 2016 Unknown COMPREHENSIVE METABOLIC 02217 SODIUM 141 mmol/L 03/05 Unknown COMPREHENSIVE METABOLIC 24666 CREATININE 1.07 mg/dL 02/06 Unknown COMPREHENSIVE METABOLIC 88940 CALCIUM 9.3 mg/dL 2016 Unknown COMPREHENSIVE METABOLIC 85842 POTASSIUM 4.8 mmol/L 03/05 Unknown COMPREHENSIVE METABOLIC 51480 Total Protein 6.2 g/dL Unknown COMPREHENSIVE METABOLIC 16667 Glucose 118 mg/dL 2016 Unknown COMPREHENSIVE METABOLIC 13442 Bicarbonate 29 mmol/L 02/06 Unknown COMPREHENSIVE METABOLIC 40866 AGAP 7 mmol/L 2016 Unknown FREE T4 33210 T4 Free 1.38 ng/dL 03/05/2017 Unknown COMPLETE BLOOD COUNT 5930792 WBC 8.4 10e9/L 03/05/20 17 Unknown COMPLETE BLOOD COUNT [id number] RBC 4.11 10e12/L 2016 Unknown COMPLETE BLOOD COUNT 9818542 HEMOGLOBIN 12.8 g/dL 03/05/20 17 Unknown COMPLETE BLOOD COUNT 3142508 HEMATOCRIT 40.1 % 03/05/20 17 Unknown COMPLETE BLOOD COUNT 3018032 MCV 97.6 fL 7 Unknown COMPLETE BLOOD COUNT 2318094 MCH 31.1 pg 7 Unknown COMPLETE BLOOD COUNT 4343584 MCHC 31.9 g/dL 7 Unknown COMPLETE BLOOD COUNT 2027311 PLATELET COUNT 184 10e9/L Unknown COMPLETE BLOOD COUNT 1569603 Mean Plt Volume 11.3 fL Unknown COMPLETE BLOOD COUNT 2992234 Neut Auto 62.5 % 7 Unknown COMPLETE BLOOD COUNT 7171686 Lymph Auto 26.4 % 03/05/20 17 Unknown COMPLETE BLOOD COUNT 8307592 [place] Auto 7.9 % 7 Unknown COMPLETE BLOOD COUNT 7582032 RDW 13.5 % 7 Unknown COMPLETE BLOOD COUNT 5747861 Eos Auto 3.0 % 7 Unknown COMPLETE BLOOD COUNT 5753659 Baso Auto 0.2 % 7 Unknown COMPLETE BLOOD COUNT 3761699 Neutrophil Abs 5.25 10e9/L Unknown COMPLETE BLOOD COUNT 9896612 Lymphocyte Abs 2.22 10e9/L Unknown COMPLETE BLOOD COUNT 9367599 Monocyte Abs 0.66 10e9/L 02/06 Unknown COMPLETE BLOOD COUNT 3525450 Eosinophil Abs 0.25 10e9/L Unknown COMPLETE BLOOD COUNT 3886352 RDW-SD 46.7 fL 7 Unknown COMPLETE BLOOD COUNT [id number] Basophil Abs 0.02 10e9/L 02/06 Unknown THYROID STIMULATING HORMONE 89858 TSH 2.330 uIU/mL 03/05/2017 Unknown LIPID GROUP 00813 Cholesterol 135 mg/dL 03/05/2017 [facility]kno wn LIPID GROUP 97661 Triglyceride 297 mg/dL 03/05/2017 [facility] own LIPID GROUP 21944 HDL CHOLESTEROL 34 mg/dL 03/05/2017 U nknown LIPID GROUP 36773 Chol/HDL Ratio 3.97 ratio 03/05/2017 U nknown LIPID GROUP 50196 NON-HDL Chol 101 mg/dL 03/05/2017 [facility] own LIPID GROUP 69922 LDL Cholesterol 42 mg/dL 03/05/2017 U nknown GLYCOSYLATED HEMOGLOBIN TEST 86458 Hgb A1c 45007-9 6.5 % 1 05/07/2015 Unknown GFR CALC 8590574 GFR Non Afr Amr 55 mL/min 03/06/2016 Unk nown GFR CALC 4697758 GFR Afr Amr >60 mL/min 03/06/2016 Unknow n COMPLETE BLOOD COUNT 9104528 WBC 8.5 10e9/L 03/06/20 16 Unknown COMPLETE BLOOD COUNT 7847081 RBC 4.32 10e12/L 2015 Unknown COMPLETE BLOOD COUNT 1620438 HEMOGLOBIN 13.5 g/dL 03/06/20 16 Unknown COMPLETE BLOOD COUNT 3531634 HEMATOCRIT 41.3 % 03/06/20 16 Unknown COMPLETE BLOOD COUNT 5703963 MCV 95.6 fL 6 Unknown COMPLETE BLOOD COUNT 9452474 MCH 31.3 pg 6 Unknown COMPLETE BLOOD COUNT 0803602 MCHC 32.7 g/dL 6 Unknown COMPLETE BLOOD COUNT 6421153 PLATELET COUNT 191 10e9/L 04/2015 Unknown COMPLETE BLOOD COUNT 7352557 Mean Plt Volume 11.7 fL 04/2015 Unknown COMPLETE BLOOD COUNT 2462211 Neut Auto 64.2 % 6 Unknown COMPLETE BLOOD COUNT 9564445 Lymph Auto 25.9 % 03/06/20 16 Unknown COMPLETE BLOOD COUNT 3691730 [place] Auto 7.8 % 6 Unknown COMPLETE BLOOD COUNT 2788352 RDW 13.4 % 6 Unknown COMPLETE BLOOD COUNT 4996332 Eos Auto 2.0 % 6 Unknown COMPLETE BLOOD COUNT 1380620 Baso Auto 0.1 % 6 Unknown COMPLETE BLOOD COUNT 1195263 Neutrophil Abs 5.46 10e9/L Unknown COMPLETE BLOOD COUNT 4437221 Lymphocyte Abs 2.20 10e9/L Unknown COMPLETE BLOOD COUNT [id number] Monocyte Abs 0.66 10e9/L 04/2015 Unknown COMPLETE BLOOD COUNT 1758794 Eosinophil Abs 0.17 10e9/L Unknown COMPLETE BLOOD COUNT 3083770 RDW-SD 45.0 fL 6 Unknown COMPLETE BLOOD COUNT [id number] Basophil Abs 0.01 10e9/L 04/2015 Unknown FREE T4 56204 T4 Free 1.34 ng/dL 03/06/2016 Unknown MEAN GLUC 5525768 Calc Mean Gluc 140 mg/dL 03/06/2016 Unkn own COMPREHENSIVE METABOLIC 69456 AST 15 U/L 2015 Unknown COMPREHENSIVE METABOLIC 39050 ALT 18 U/L 2015 Unknown COMPREHENSIVE METABOLIC 56504 BUN 21 mg/dL 2015 Unknown COMPREHENSIVE METABOLIC 80008 ALBUMIN 4.3 g/dL 2015 Unknown COMPREHENSIVE METABOLIC 81017 CHLORIDE 103 mmol/L 03/06 Unknown COMPREHENSIVE METABOLIC 13294 Bili Total 0.4 mg/dL 03/06 Unknown COMPREHENSIVE METABOLIC 70222 ALK PHOS 68 U/L 2015 Unknown COMPREHENSIVE METABOLIC 23387 SODIUM 140 mmol/L 03/06 Unknown COMPREHENSIVE METABOLIC 54919 CREATININE 1.31 mg/dL 04/2015 Unknown COMPREHENSIVE METABOLIC 57535 CALCIUM 9.4 mg/dL 2015 Unknown COMPREHENSIVE METABOLIC 02453 POTASSIUM 4.8 mmol/L 03/06 Unknown COMPREHENSIVE METABOLIC 02753 Total Protein 6.6 g/dL Unknown COMPREHENSIVE METABOLIC 83872 Glucose 142 mg/dL 2015 Unknown COMPREHENSIVE METABOLIC 12820 Bicarbonate 29 mmol/L 04/2015 Unknown COMPREHENSIVE METABOLIC 33095 AGAP 8 mmol/L 2015 Unknown THYROID STIMULATING HORMONE 61676 TSH 2.288 uIU/mL 03/06/2016 Unknown LIPID GROUP 46930 Cholesterol 154 mg/dL 03/06/2016 Unkno wn LIPID GROUP 86873 Triglyceride 266 mg/dL 03/06/2016 Unkn own LIPID GROUP 73791 HDL CHOLESTEROL 38 mg/dL 03/06/2016 U nknown LIPID GROUP 21501 Chol/HDL Ratio 4.05 ratio 03/06/2016 U nknown LIPID GROUP 06766 NON-HDL Chol 116 mg/dL 03/06/2016 Unkn own LIPID GROUP 58070 LDL Cholesterol 63 mg/dL 03/06/2016 U nknown MEAN GLUC 9984733 Mean Glucose 128 mg/dL 08/31/2015 Unknow n COMPLETE BLOOD COUNT 1151935 WBC 8.4 10e9/L 08/31/19 16 Unknown COMPLETE BLOOD COUNT 6153488 RBC 4.12 10e12/L 2015 Unknown COMPLETE BLOOD COUNT 9513726 HEMOGLOBIN 12.8 g/dL 08/31/19 16 Unknown COMPLETE BLOOD COUNT 5592411 HEMATOCRIT 39.6 % 08/31/19 16 Unknown COMPLETE BLOOD COUNT 7882309 MCV 96.1 fL 6 Unknown COMPLETE BLOOD COUNT 1132058 MCH 31.1 pg 6 Unknown COMPLETE BLOOD COUNT 5990172 MCHC 32.3 g/dL 6 Unknown COMPLETE BLOOD COUNT 9168713 PLATELET COUNT 184 10e9/L Unknown COMPLETE BLOOD COUNT 2020933 Mean Plt Volume 12.0 fL Unknown COMPLETE BLOOD COUNT 2729618 Neut Auto 59.8 % 6 Unknown COMPLETE BLOOD COUNT 7416658 Lymph Auto 27.9 % 08/31/19 16 Unknown COMPLETE BLOOD COUNT 2658766 [place] Auto 9.1 % 6 Unknown COMPLETE BLOOD COUNT 4499210 RDW 13.6 % 6 Unknown COMPLETE BLOOD COUNT 7168759 Eos Auto 3.1 % 6 Unknown COMPLETE BLOOD COUNT 3300101 Baso Auto 0.1 % 6 Unknown COMPLETE BLOOD COUNT 0343042 Neutrophil Abs 5.02 10e9/L Unknown COMPLETE BLOOD COUNT 8676743 Lymphoctye Abs 2.34 10e9/L Unknown COMPLETE BLOOD COUNT 9864159 Monocyte Abs 0.76 10e9/L 08/05 Unknown COMPLETE BLOOD COUNT 0588930 Eosinophil Abs 0.26 10e9/L Unknown COMPLETE BLOOD COUNT 9170176 RDW-SD 46.3 fL 6 Unknown COMPLETE BLOOD COUNT 3388310 Basophil Abs 0.01 10e9/L 08/05 Unknown GLYCOSYLATED HEMOGLOBIN TEST 07052 Hgb A1c 04035-5 6.1 % 0 08/31/2015 Unknown GFR CALC 8213815 GFR Afr Amr >60 mL/min 08/31/2015 Unknow n GFR CALC 4085955 GFR Non Afr Amr >60 mL/min 08/31/2015 Un known FREE T4 22377 T4 Free 1.21 ng/dL 08/31/2015 Unknown THYROID STIMULATING HORMONE 70866 TSH 2.988 uIU/mL 08/31/2015 Unknown COMPREHENSIVE METABOLIC 20987 AST 16 U/L 2015 Unknown COMPREHENSIVE METABOLIC 02715 ALT 19 U/L 2015 Unknown COMPREHENSIVE METABOLIC 41090 BUN 17 mg/dL 2015 Unknown COMPREHENSIVE METABOLIC 34766 ALBUMIN 4.3 g/dL 2015 Unknown COMPREHENSIVE METABOLIC 39707 CHLORIDE 107 mmol/L 08/30 Unknown COMPREHENSIVE METABOLIC 14276 Bili Total 0.4 mg/dL 08/30 Unknown COMPREHENSIVE METABOLIC 98712 ALK PHOS 66 U/L 2015 Unknown COMPREHENSIVE METABOLIC 79666 SODIUM 140 mmol/L 08/30 Unknown COMPREHENSIVE METABOLIC 50659 CREATININE 1.07 mg/dL 08/05 Unknown COMPREHENSIVE METABOLIC 54090 CALCIUM 9.5 mg/dL 2015 Unknown COMPREHENSIVE METABOLIC 24647 POTASSIUM 4.5 mmol/L 08/30 Unknown COMPREHENSIVE METABOLIC 23313 Total Protein 6.7 g/dL Unknown COMPREHENSIVE METABOLIC 26095 Glucose 122 mg/dL 2015 Unknown COMPREHENSIVE METABOLIC 21258 Bicarbonate 26 mmol/L 08/05 Unknown COMPREHENSIVE METABOLIC 12420 AGAP 7 mmol/L 2015 Unknown LIPID GROUP 03378 Cholesterol 171 mg/dL 08/31/2015 Unkno wn LIPID GROUP 29220 Triglyceride 428 mg/dL 08/31/2015 Unkn own LIPID GROUP 05351 HDL CHOLESTEROL 35 mg/dL 08/31/2015 U nknown LIPID GROUP 52080 Chol/HDL Ratio 4.89 ratio 08/31/2015 U nknon LIPID GROUP 67727 NON-HDL Chol 136 mg/dL 08/31/2015 Unkn own LIPID GROUP 55039 LDL Cholesterol 50 mg/dL 08/31/2015 U nknown PSA EQUIMOLAR JERSON 61345 PSA Total 0.47 ng/mL 6 Unknown GFR CALC 8690391 GFR AA >60 ML/MIN 01/12/2015 Unknown GFR CALC 5079396 GFR NON-AA >60 ML/MIN 01/12/2015 Unknown COMPREHENSIVE METABOLIC 91358 AST 18 U/L 2014 Unknown COMPREHENSIVE METABOLIC 97484 ALT 19 IU/L 2014 Unknown COMPREHENSIVE METABOLIC 30385 BUN 19 MG/DL 2014 Unknown COMPREHENSIVE METABOLIC 41818 ALBUMIN 4.7 GM/DL 2014 Unknown COMPREHENSIVE METABOLIC 32967 CHLORIDE 104 MMOL/L 01/12 Unknown COMPREHENSIVE METABOLIC 26160 BILI TOT 0.8 MG/DL 2014 Unknown COMPREHENSIVE METABOLIC 33437 ALK PHOS 58 U/L 2014 Unknown COMPREHENSIVE METABOLIC 75759 SODIUM 139 MMOL/L 01/12 Unknown COMPREHENSIVE METABOLIC 80686 CREATININE 1.09 MG/DL 12/2014 Unknown COMPREHENSIVE METABOLIC 22947 CALCIUM 9.6 MG/DL 2014 Unknown COMPREHENSIVE METABOLIC 33494 POTASSIUM 4.4 MMOL/L 01/12 Unknown COMPREHENSIVE METABOLIC 38045 PROT TOT 6.7 GM/DL 2014 Unknown COMPREHENSIVE METABOLIC 47711 Glucose 109 MG/DL 2014 Unknown COMPREHENSIVE METABOLIC 84955 BICARB 27 MMOL/L 2014 Unknown COMPREHENSIVE METABOLIC 85971 ANION GAP 8 MEQ/L 2014 Unknown LIPID GROUP 57710 HDL TEST 36 MG/DL 01/12/2015 Unknown LIPID GROUP 89577 TRIG 220 MG/DL 01/12/2015 Unknown LIPID GROUP 99624 TEST LDL 58 MG/DL 01/12/2015 Unknown LIPID GROUP 26146 CHOL 138 MG/DL 01/12/2015 Unknown LIPID GROUP 69755 RCHOL/HDL 3.83 RATIO 01/12/2015 Unknow n LIPID GROUP 03502 NON-HDL CH 102 MG/DL 01/12/2015 Unknow n GLYCOSYLATED HEMOGLOBIN TEST 09922 A1C HPLC 08534-3 6.1 % 1 Unknown COMPLETE BLOOD COUNT 5958235 WBC 7.1 10e9/L 01/13/20 15 Unknown COMPLETE BLOOD COUNT [id number] RBC 4.38 10e12/L 2014 Unknown COMPLETE BLOOD COUNT 8642427 HGB 13.7 g/dL 5 Unknown COMPLETE BLOOD COUNT 2356364 HCT DET 41.3 % 5 Unknown COMPLETE BLOOD COUNT 7129441 MCV 94.3 fL 5 Unknown COMPLETE BLOOD COUNT 1258285 MCH 31.3 pg 5 Unknown COMPLETE BLOOD COUNT 8637736 MCHC 33.2 g/dL 5 Unknown COMPLETE BLOOD COUNT 2074887 PLT 174 10e9/L 01/13/20 15 Unknown COMPLETE BLOOD COUNT 6398791 MPV 11.8 fL 5 Unknown COMPLETE BLOOD COUNT 1185538 SAMIR % 61.3 % 5 Unknown COMPLETE BLOOD COUNT 5489972 LY % 28.3 % 5 Unknown COMPLETE BLOOD COUNT 3427859 MON % 7.6 % 5 Unknown COMPLETE BLOOD COUNT 7815646 EOS % 2.7 % 5 Unknown COMPLETE BLOOD COUNT 0486550 BASO % 0.1 % 5 Unknown COMPLETE BLOOD COUNT 2940022 RDW 13.1 % 5 Unknown COMPLETE BLOOD COUNT 1483550 ABS SAMIR 4.35 10e9/L 015 Unknown COMPLETE BLOOD COUNT 5305292 ABS LYMPH 2.01 10e9/L 015 Unknown COMPLETE BLOOD COUNT 4503672 ABS MONO 0.54 10e9/L 015 Unknown COMPLETE BLOOD COUNT 5315410 ABS EOS 0.19 10e9/L 015 Unknown COMPLETE BLOOD COUNT 7187660 ABS BASO 0.01 10e9/L 015 Unknown COMPLETE BLOOD COUNT 3967451 RDW-SD 43.9 fL 5 Unknown GLYCOSYLATED HEMOGLOBIN TEST 79358 A1C HPLC 05171-5 6.1 % 0 08/15/2014 Unknown COMPLETE BLOOD COUNT 0409234 WBC 9.7 10e9/L 08/16/19 15 Unknown COMPLETE BLOOD COUNT 9963615 RBC 4.29 10e12/L 2014 Unknown COMPLETE BLOOD COUNT 4420086 HGB 13.3 g/dL 5 Unknown COMPLETE BLOOD COUNT 5100365 HCT DET 40.5 % 5 Unknown COMPLETE BLOOD COUNT 9852536 MCV 94.4 fL 5 Unknown COMPLETE BLOOD COUNT 0321660 MCH 31.0 pg 5 Unknown COMPLETE BLOOD COUNT 0245200 MCHC 32.8 g/dL 5 Unknown COMPLETE BLOOD COUNT 7350070 PLT 227 10e9/L 08/16/19 15 Unknown COMPLETE BLOOD COUNT 6382884 MPV 11.0 fL 5 Unknown COMPLETE BLOOD COUNT 5076616 SAMIR % 66.4 % 5 Unknown COMPLETE BLOOD COUNT 7413734 LY % 23.7 % 5 Unknown COMPLETE BLOOD COUNT 1283453 MON % 8.1 % 5 Unknown COMPLETE BLOOD COUNT 4740190 EOS % 1.6 % 5 Unknown COMPLETE BLOOD COUNT 5541283 BASO % 0.2 % 5 Unknown COMPLETE BLOOD COUNT 4749970 RDW 13.4 % 5 Unknown COMPLETE BLOOD COUNT 5736825 ABS SAMIR 6.44 10e9/L 015 Unknown COMPLETE BLOOD COUNT 2826371 ABS LYMPH 2.30 10e9/L 015 Unknown COMPLETE BLOOD COUNT 5955814 ABS MONO 0.79 10e9/L 015 Unknown COMPLETE BLOOD COUNT 5200146 ABS EOS 0.16 10e9/L 015 Unknown COMPLETE BLOOD COUNT 6344654 ABS BASO 0.02 10e9/L 015 Unknown COMPLETE BLOOD COUNT 3371502 RDW-SD 44.7 fL 5 Unknown COMPREHENSIVE METABOLIC 63885 AST 17 U/L 2014 Unknown COMPREHENSIVE METABOLIC 55870 ALT 23 IU/L 2014 Unknown COMPREHENSIVE METABOLIC 97384 BUN 16 MG/DL 2014 Unknown COMPREHENSIVE METABOLIC 53376 ALBUMIN 4.3 GM/DL 2014 Unknown COMPREHENSIVE METABOLIC 35623 CHLORIDE 107 MMOL/L 08/15 Unknown COMPREHENSIVE METABOLIC 54099 BILI TOT 0.4 MG/DL 2014 Unknown COMPREHENSIVE METABOLIC 03109 ALK PHOS 91 U/L 2014 Unknown COMPREHENSIVE METABOLIC 49896 SODIUM 139 MMOL/L 08/15 Unknown COMPREHENSIVE METABOLIC 87766 CREATININE 1.07 MG/DL 08/04 Unknown COMPREHENSIVE METABOLIC 37576 CALCIUM 9.6 MG/DL 2014 Unknown COMPREHENSIVE METABOLIC 25800 POTASSIUM 4.6 MMOL/L 08/15 Unknown COMPREHENSIVE METABOLIC 14206 PROT TOT 6.7 GM/DL 2014 Unknown COMPREHENSIVE METABOLIC 00667 Glucose 111 MG/DL 2014 Unknown COMPREHENSIVE METABOLIC 44677 BICARB 27 MMOL/L 2014 Unknown COMPREHENSIVE METABOLIC 89912 ANION GAP 5 MEQ/L 2014 Unknown GFR CALC [id number] GFR AA >60 ML/MIN 08/15/2014 Unknown GFR CALC [id number] GFR NON-AA >60 ML/MIN 08/15/2014 Unknown THYROID STIMULATING HORMONE 35002 TSH 1.598 uIU/ML 08/15/2014 Unknown LIPID GROUP 24367 HDL TEST 33 MG/DL 08/15/2014 Unknown LIPID GROUP 36420 TRIG 187 MG/DL 08/15/2014 Unknown LIPID GROUP 54145 TEST LDL 58 MG/DL 08/15/2014 Unknown LIPID GROUP 85329 CHOL 128 MG/DL 08/15/2014 Unknown LIPID GROUP 21239 RCHOL/HDL 3.88 RATIO 08/15/2014 Unknow n LIPID GROUP 53454 NON-HDL CH 95 MG/DL 08/15/2014 Unknow n PSA EQUIMOLAR JERSON 62010 PSA EQ 0.70 NG/ML 5 Unknown FREE T4 36996 FREE T4 1.32 NG/DL 08/15/2014 Unknown GFR CALC 1982614 GFR AA >60 ML/MIN 12/14/2013 Unknown GFR CALC 5929179 GFR NON-AA 58.0L ML/MIN 12/14/2013 Unkno wn COMPLETE BLOOD COUNT [id number] WBC 8.7 10e9/L 12/15/19 14 Unknown COMPLETE BLOOD COUNT [id number] RBC 4.32 10e12/L 2013 Unknown COMPLETE BLOOD COUNT 3491285 HGB 13.5 g/dL 4 Unknown COMPLETE BLOOD COUNT 0934903 HCT DET 40.6 % 4 Unknown COMPLETE BLOOD COUNT 3765079 MCV 94.0 fL 4 Unknown COMPLETE BLOOD COUNT 0909047 MCH 31.3 pg 4 Unknown COMPLETE BLOOD COUNT 6248994 MCHC 33.3 g/dL 4 Unknown COMPLETE BLOOD COUNT 3261433 PLT 205 10e9/L 12/15/19 14 Unknown COMPLETE BLOOD COUNT [id number] MPV 11.7 fL 4 Unknown COMPLETE BLOOD COUNT 6162259 SAMIR % 62.5 % 4 Unknown COMPLETE BLOOD COUNT 2393710 LY % 26.9 % 4 Unknown COMPLETE BLOOD COUNT [id number] MON % 8.8 % 4 Unknown COMPLETE BLOOD COUNT [id number] EOS % 1.7 % 4 Unknown COMPLETE BLOOD COUNT [id number] BASO % 0.1 % 4 Unknown COMPLETE BLOOD COUNT [id number] RDW 13.4 % 4 Unknown COMPLETE BLOOD COUNT [id number] ABS SAMIR 5.44 10e9/L 014 Unknown COMPLETE BLOOD COUNT [id number] ABS LYMPH 2.34 10e9/L 014 Unknown COMPLETE BLOOD COUNT [id number] ABS MONO 0.77 10e9/L 014 Unknown COMPLETE BLOOD COUNT [id number] ABS EOS 0.15 10e9/L 014 Unknown COMPLETE BLOOD COUNT [id number] ABS BASO 0.01 10e9/L 014 Unknown COMPLETE BLOOD COUNT [id number] RDW-SD 44.7 fL 4 Unknown COMPREHENSIVE METABOLIC 28183 AST 14 U/L 2013 Unknown COMPREHENSIVE METABOLIC 06803 ALT 12 IU/L 2013 Unknown COMPREHENSIVE METABOLIC 63802 BUN 24 MG/DL 2013 Unknown COMPREHENSIVE METABOLIC 18325 ALBUMIN 4.5 GM/DL 2013 Unknown COMPREHENSIVE METABOLIC 67140 CHLORIDE 104 MMOL/L 12/14 Unknown COMPREHENSIVE METABOLIC 33565 BILI TOT 0.6 MG/DL 2013 Unknown COMPREHENSIVE METABOLIC 51992 ALK PHOS 82 U/L 2013 Unknown COMPREHENSIVE METABOLIC 27341 SODIUM 135 MMOL/L 12/14 Unknown COMPREHENSIVE METABOLIC 68637 CREATININE 1.25 MG/DL 12/05 Unknown COMPREHENSIVE METABOLIC 64427 CALCIUM 9.8 MG/DL 2013 Unknown COMPREHENSIVE METABOLIC 92113 POTASSIUM 4.7 MMOL/L 12/14 Unknown COMPREHENSIVE METABOLIC 28091 PROT TOT 6.7 GM/DL 2013 Unknown COMPREHENSIVE METABOLIC 23691 Glucose 126 MG/DL 2013 Unknown COMPREHENSIVE METABOLIC 04484 BICARB 27 MMOL/L 2013 Unknown COMPREHENSIVE METABOLIC 27558 ANION GAP 4 MEQ/L 2013 Unknown THYROID STIMULATING HORMONE 77321 TSH 3.281 uIU/ML 12/14/2013 Unknown FREE T4 13499 FREE T4 1.28 NG/DL 12/14/2013 Unknown LIPID GROUP 94549 HDL TEST 36 MG/DL 12/14/2013 Unknown LIPID GROUP 63296 TRIG 253 MG/DL 12/14/2013 Unknown LIPID GROUP 33522 TEST LDL 56 MG/DL 12/14/2013 Unknown LIPID GROUP 81698 CHOL 143 MG/DL 12/14/2013 Unknown LIPID GROUP 50580 RCHOL/HDL 3.97 RATIO 12/14/2013 Unknow n LIPID GROUP 44139 NON-HDL CH 107 MG/DL 12/14/2013 Unknow n GLYCOSYLATED HEMOGLOBIN TEST 80868 A1C HPLC 02169-3 6.1 % 0 12/14/2013 Unknown GLYCOSYLATED HEMOGLOBIN TEST 16524 A1C HPLC 75041-6 6.0 % 0 06/08/2013 Unknown LIPID GROUP 65196 HDL TEST 39 MG/DL 06/08/2013 Unknown LIPID GROUP 20643 TRIG 166 MG/DL 06/08/2013 Unknown LIPID GROUP 41394 TEST LDL 86 MG/DL 06/08/2013 Unknown LIPID GROUP 06185 CHOL 158 MG/DL 06/08/2013 Unknown LIPID GROUP 47973 RCHOL/HDL 4.05 RATIO 06/08/2013 Unknow n COMPREHENSIVE METABOLIC 36647 AST 17 U/L 2013 Unknown COMPREHENSIVE METABOLIC 11665 ALT 25 IU/L 2013 Unknown COMPREHENSIVE METABOLIC 83947 BUN 18 MG/DL 2013 Unknown COMPREHENSIVE METABOLIC 70467 ALBUMIN 4.5 GM/DL 2013 Unknown COMPREHENSIVE METABOLIC 20082 CHLORIDE 103 MMOL/L 06/08 Unknown COMPREHENSIVE METABOLIC 03696 BILI TOT 0.4 MG/DL 2013 Unknown COMPREHENSIVE METABOLIC 93185 ALK PHOS 72 U/L 2013 Unknown COMPREHENSIVE METABOLIC 10029 SODIUM 137 MMOL/L 06/08 Unknown COMPREHENSIVE METABOLIC 08207 CREATININE 1.07 MG/DL 08/2013 Unknown COMPREHENSIVE METABOLIC 02317 CALCIUM 9.7 MG/DL 2013 Unknown COMPREHENSIVE METABOLIC 96096 POTASSIUM 4.7 MMOL/L 06/08 Unknown COMPREHENSIVE METABOLIC 52179 PROT TOT 6.6 GM/DL 2013 Unknown COMPREHENSIVE METABOLIC 82361 Glucose 130 MG/DL 2013 Unknown COMPREHENSIVE METABOLIC 40759 BICARB 25 MMOL/L 2013 Unknown COMPREHENSIVE METABOLIC 92663 ANION GAP 9 MEQ/L 2013 Unknown FREE T4 80039 FREE T4 1.29 NG/DL 06/08/2013 Unknown THYROID STIMULATING HORMONE 74300 TSH 2.445 uIU/ML 06/08/2013 Unknown GFR CALC GFR AA >60 ML/MIN 06/08/2013 Unknown GFR CALC GFR NON-AA >60 ML/MIN 06/08/2013 Unknown COMPLETE BLOOD COUNT [id number] WBC 8.2 10e9/L 06/09/19 14 Unknown COMPLETE BLOOD COUNT [id number] RBC 4.63 10e12/L 2013 Unknown COMPLETE BLOOD COUNT [id number] HGB 14.1 g/dL 4 Unknown COMPLETE BLOOD COUNT [id number] HCT DET 42.6 % 4 Unknown COMPLETE BLOOD COUNT 0568804 MCV 92.0 fL 4 Unknown COMPLETE BLOOD COUNT [id number] MCH 30.5 pg 4 Unknown COMPLETE BLOOD COUNT 2686968 MCHC 33.1 g/dL 4 Unknown COMPLETE BLOOD COUNT [id number] PLT 222 10e9/L 06/09/19 14 Unknown COMPLETE BLOOD COUNT 2904962 MPV 10.8 fL 4 Unknown COMPLETE BLOOD COUNT [id number] SAMIR % 60.8 % 4 Unknown COMPLETE BLOOD COUNT [id number] LY % 29.2 % 4 Unknown COMPLETE BLOOD COUNT [id number] MON % 7.6 % 4 Unknown COMPLETE BLOOD COUNT [id number] EOS % 2.3 % 4 Unknown COMPLETE BLOOD COUNT [id number] BASO % 0.1 % 4 Unknown COMPLETE BLOOD COUNT 3640915 RDW 13.7 % 4 Unknown COMPLETE BLOOD COUNT 1336888 ABS SAMIR 4.99 10e9/L 014 Unknown COMPLETE BLOOD COUNT [id number] ABS LYMPH 2.39 10e9/L 014 Unknown COMPLETE BLOOD COUNT [id number] ABS MONO 0.62 10e9/L 014 Unknown COMPLETE BLOOD COUNT [id number] ABS EOS 0.19 10e9/L 014 Unknown COMPLETE BLOOD COUNT [id number] ABS BASO 0.01 10e9/L 014 Unknown COMPLETE BLOOD COUNT [id number] RDW-SD 45.2 fL 4 Unknown LIPID GROUP 57250 HDL TEST 40 MG/DL 11/11/2012 Unknown LIPID GROUP 69581 TRIG 153 MG/DL 11/11/2012 Unknown LIPID GROUP 56099 TEST LDL 71 MG/DL 11/11/2012 Unknown LIPID GROUP 49541 CHOL 142 MG/DL 11/11/2012 Unknown LIPID GROUP 25193 RCHOL/HDL 3.55 RATIO 11/11/2012 Unknow n GFR CALC 3805397 GFR AA >60 ML/MIN 11/11/2012 Unknown GFR CALC 0026975 GFR NON-AA 57.0L ML/MIN 11/11/2012 Unkno wn HEMOGLOBIN A1C (GLYCOSYLATED) 5119257 A1C HPLC 40669-9 5.9 % 11/11/2012 Unknown THYROID STIMULATING HORMONE 39841 TSH 2.439 uIU/ML 11/11/2012 Unknown COMPLETE BLOOD COUNT [id number] WBC 8.5 10e9/L 11/12/19 13 Unknown COMPLETE BLOOD COUNT [id number] RBC 4.42 10e12/L 2012 Unknown COMPLETE BLOOD COUNT 6201327 HGB 13.7 g/dL 3 Unknown COMPLETE BLOOD COUNT 3471122 HCT DET 41.3 % 3 Unknown COMPLETE BLOOD COUNT 3421432 MCV 93.4 fL 3 Unknown COMPLETE BLOOD COUNT 8666540 MCH 31.0 pg 3 Unknown COMPLETE BLOOD COUNT 2900868 MCHC 33.2 g/dL 3 Unknown COMPLETE BLOOD COUNT 5552510 PLT 220 10e9/L 11/12/19 13 Unknown COMPLETE BLOOD COUNT 8677654 MPV 10.8 fL 3 Unknown COMPLETE BLOOD COUNT 3775878 SAMIR % 60.4 % 3 Unknown COMPLETE BLOOD COUNT 7367823 LY % 28.7 % 3 Unknown COMPLETE BLOOD COUNT [id number] MON % 8.0 % 3 Unknown COMPLETE BLOOD COUNT [id number] EOS % 2.8 % 3 Unknown COMPLETE BLOOD COUNT [id number] BASO % 0.1 % 3 Unknown COMPLETE BLOOD COUNT 3989715 RDW 13.7 % 3 Unknown COMPLETE BLOOD COUNT 7370626 ABS SAMIR 5.13 10e9/L 013 Unknown COMPLETE BLOOD COUNT 1021513 ABS LYMPH 2.44 10e9/L 013 Unknown COMPLETE BLOOD COUNT [id number] ABS MONO 0.68 10e9/L 013 Unknown COMPLETE BLOOD COUNT [id number] ABS EOS 0.24 10e9/L 013 Unknown COMPLETE BLOOD COUNT [id number] ABS BASO 0.01 10e9/L 013 Unknown COMPLETE BLOOD COUNT [id number] RDW-SD 45.6 fL 3 Unknown COMPREHENSIVE METABOLIC 45609 AST 19 U/L 2012 Unknown COMPREHENSIVE METABOLIC 60210 ALT 28 IU/L 2012 Unknown COMPREHENSIVE METABOLIC 61710 BUN 31 MG/DL 2012 Unknown COMPREHENSIVE METABOLIC 24973 ALBUMIN 4.7 GM/DL 2012 Unknown COMPREHENSIVE METABOLIC 92345 CHLORIDE 106 MMOL/L 11/11 Unknown COMPREHENSIVE METABOLIC 62548 BILI TOT 0.5 MG/DL 2012 Unknown COMPREHENSIVE METABOLIC 36864 ALK PHOS 64 U/L 2012 Unknown COMPREHENSIVE METABOLIC 79301 SODIUM 136 MMOL/L 11/11 Unknown COMPREHENSIVE METABOLIC 66792 CREATININE 1.27 MG/DL 11/2012 Unknown COMPREHENSIVE METABOLIC 30502 CALCIUM 9.4 MG/DL 2012 Unknown COMPREHENSIVE METABOLIC 48698 POTASSIUM 4.9 MMOL/L 11/11 Unknown COMPREHENSIVE METABOLIC 05249 PROT TOT 6.7 GM/DL 2012 Unknown COMPREHENSIVE METABOLIC 89780 Glucose 108 MG/DL 2012 Unknown COMPREHENSIVE METABOLIC 99932 BICARB 21 MMOL/L 2012 Unknown COMPREHENSIVE METABOLIC 75692 ANION GAP 9 MEQ/L 2012 Unknown THYROID STIMULATING HORMONE 85537 TSH 2.572 uIU/ML 05/04/2012 Unknown COMPLETE BLOOD COUNT [id number] WBC 9.3 10e9/L 05/04/19 13 Unknown COMPLETE BLOOD COUNT [id number] RBC 4.43 10e12/L 2012 Unknown COMPLETE BLOOD COUNT 9889253 HGB 14.2 g/dL 3 Unknown COMPLETE BLOOD COUNT 9597692 HCT DET 41.1 % 3 Unknown COMPLETE BLOOD COUNT 3683663 MCV 92.8 fL 3 Unknown COMPLETE BLOOD COUNT 2488403 MCH 32.1 pg 3 Unknown COMPLETE BLOOD COUNT 0694506 MCHC 34.5 g/dL 3 Unknown COMPLETE BLOOD COUNT 3433304 PLT 193 10e9/L 05/04/19 13 Unknown COMPLETE BLOOD COUNT [id number] MPV 10.8 fL 3 Unknown COMPLETE BLOOD COUNT 0767426 SAMIR % 63.0 % 3 Unknown COMPLETE BLOOD COUNT 2733131 LY % 25.3 % 3 Unknown COMPLETE BLOOD COUNT [id number] MON % 9.1 % 3 Unknown COMPLETE BLOOD COUNT [id number] EOS % 2.5 % 3 Unknown COMPLETE BLOOD COUNT 7207316 BASO % 0.1 % 3 Unknown COMPLETE BLOOD COUNT 8750486 RDW 12.6 % 3 Unknown COMPLETE BLOOD COUNT 5822000 ABS SAMIR 5.86 10e9/L 013 Unknown COMPLETE BLOOD COUNT 1923907 ABS LYMPH 2.35 10e9/L 013 Unknown COMPLETE BLOOD COUNT 1115080 ABS MONO 0.85 10e9/L 013 Unknown COMPLETE BLOOD COUNT 8841211 ABS EOS 0.23 10e9/L 013 Unknown COMPLETE BLOOD COUNT 9357640 ABS BASO 0.01 10e9/L 013 Unknown COMPLETE BLOOD COUNT [id number] RDW-SD 41.2 fL 3 Unknown LIPID GROUP 86471 HDL TEST 35 MG/DL 05/04/2012 Unknown LIPID GROUP 16789 TRIG 236 MG/DL 05/04/2012 Unknown LIPID GROUP 02808 TEST LDL 64 MG/DL 05/04/2012 Unknown LIPID GROUP 65942 CHOL 146 MG/DL 05/04/2012 Unknown LIPID GROUP 51645 RCHOL/HDL 4.17 RATIO 05/04/2012 Unknow n COMPREHENSIVE METABOLIC 54824 AST 23 U/L 2012 Unknown COMPREHENSIVE METABOLIC 60873 ALT 33 IU/L 2012 Unknown COMPREHENSIVE METABOLIC 56090 BUN 16 MG/DL 2012 Unknown COMPREHENSIVE METABOLIC 25342 ALBUMIN 4.8 GM/DL 2012 Unknown COMPREHENSIVE METABOLIC 85676 CHLORIDE 104 MMOL/L 05/04 Unknown COMPREHENSIVE METABOLIC 24581 BILI TOT 0.5 MG/DL 2012 Unknown COMPREHENSIVE METABOLIC 21593 ALK PHOS 70 U/L 2012 Unknown COMPREHENSIVE METABOLIC 59896 SODIUM 138 MMOL/L 05/04 Unknown COMPREHENSIVE METABOLIC 46468 CREATININE 1.08 MG/DL 04/07 Unknown COMPREHENSIVE METABOLIC 89542 CALCIUM 9.7 MG/DL 2012 Unknown COMPREHENSIVE METABOLIC 79435 POTASSIUM 4.4 MMOL/L 05/04 Unknown COMPREHENSIVE METABOLIC 12624 PROT TOT 6.8 GM/DL 2012 Unknown COMPREHENSIVE METABOLIC 64313 Glucose 114 MG/DL 2012 Unknown COMPREHENSIVE METABOLIC 55462 BICARB 27 MMOL/L 2012 Unknown COMPREHENSIVE METABOLIC 44206 ANION GAP 7 MEQ/L 2012 Unknown FREE T4 55271 FREE T4 1.11 NG/DL 05/04/2012 Unknown GFR CALC 5227008 GFR AA >60 ML/MIN 05/04/2012 Unknown GFR CALC 3652398 GFR NON-AA >60 ML/MIN 05/04/2012 Unknown GLYCOSYLATED HEMOGLOBIN TEST 23389 A1C HPLC 75110-6 5.8 % 0 10/29/2011 Unknown COMPREHENSIVE METABOLIC 54540 AST 17 U/L 2011 Unknown COMPREHENSIVE METABOLIC 76983 ALT 21 IU/L 2011 Unknown COMPREHENSIVE METABOLIC 36271 BUN 17 MG/DL 2011 Unknown COMPREHENSIVE METABOLIC 14383 ALBUMIN 4.8 GM/DL 2011 Unknown COMPREHENSIVE METABOLIC 13233 CHLORIDE 106 MMOL/L 10/28 Unknown COMPREHENSIVE METABOLIC 97904 BILI TOT 0.6 MG/DL 2011 Unknown COMPREHENSIVE METABOLIC 61783 ALK PHOS 57 U/L 2011 Unknown COMPREHENSIVE METABOLIC 27639 SODIUM 139 MMOL/L 10/28 Unknown COMPREHENSIVE METABOLIC 05285 CREATININE 1.08 MG/DL 10/05 Unknown COMPREHENSIVE METABOLIC 11568 CALCIUM 9.6 MG/DL 2011 Unknown COMPREHENSIVE METABOLIC 98950 POTASSIUM 4.4 MMOL/L 10/28 Unknown COMPREHENSIVE METABOLIC 45868 PROT TOT 6.9 GM/DL 2011 Unknown COMPREHENSIVE METABOLIC 32637 Glucose 104 MG/DL 2011 Unknown COMPREHENSIVE METABOLIC 96177 BICARB 25 MMOL/L 2011 Unknown COMPREHENSIVE METABOLIC 86794 ANION GAP 8 MEQ/L 2011 Unknown LIPID GROUP 49604 HDL TEST 39 MG/DL 10/29/2011 Unknown LIPID GROUP 07297 TRIG 176 MG/DL 10/29/2011 Unknown LIPID GROUP 17614 TEST LDL 70 MG/DL 10/29/2011 Unknown LIPID GROUP 03477 CHOL 144 MG/DL 10/29/2011 Unknown LIPID GROUP 22658 RCHOL/HDL 3.69 RATIO 10/29/2011 Unknow n GFR CALC 9161981 GFR AA >60 ML/MIN 10/29/2011 Unknown GFR CALC 8695488 GFR NON-AA >60 ML/MIN 10/29/2011 Unknown GFR CALC 8548563 GFR AA >60 ML/MIN 03/14/2011 Unknown GFR CALC 6287590 GFR NON-AA >60 ML/MIN 03/14/2011 Unknown GLYCOSYLATED HEMOGLOBIN TEST 87648 A1C HPLC 16601-3 5.7 % 1 05/15/2010 Unknown COMPREHENSIVE METABOLIC 26902 AST 18 U/L 2010 Unknown COMPREHENSIVE METABOLIC 71869 ALT 25 IU/L 2010 Unknown COMPREHENSIVE METABOLIC 93461 BUN 15 MG/DL 2010 Unknown COMPREHENSIVE METABOLIC 88486 ALBUMIN 4.6 GM/DL 2010 Unknown COMPREHENSIVE METABOLIC 08387 CHLORIDE 107 MMOL/L 03/14 Unknown COMPREHENSIVE METABOLIC 82710 BILI TOT 0.6 MG/DL 2010 Unknown COMPREHENSIVE METABOLIC 91810 ALK PHOS 54 U/L 2010 Unknown COMPREHENSIVE METABOLIC 61822 SODIUM 140 MMOL/L 03/14 Unknown COMPREHENSIVE METABOLIC 74420 CREATININE 1.02 MG/DL 12/2010 Unknown COMPREHENSIVE METABOLIC 62102 CALCIUM 9.4 MG/DL 2010 Unknown COMPREHENSIVE METABOLIC 00392 POTASSIUM 4.6 MMOL/L 03/14 Unknown COMPREHENSIVE METABOLIC 32871 PROT TOT 7.0 GM/DL 2010 Unknown COMPREHENSIVE METABOLIC 38962 Glucose 107 MG/DL 2010 Unknown COMPREHENSIVE METABOLIC 89101 BICARB 28 MMOL/L 2010 Unknown COMPREHENSIVE METABOLIC 28574 ANION GAP 5 MEQ/L 2010 Unknown LIPID GROUP 22396 HDL TEST 39 MG/DL 03/14/2011 Unknown LIPID GROUP 39722 TRIG 157 MG/DL 03/14/2011 Unknown LIPID GROUP 36292 TEST LDL 66 MG/DL 03/14/2011 Unknown LIPID GROUP 32231 CHOL 136 MG/DL 03/14/2011 Unknown LIPID GROUP 38829 RCHOL/HDL 3.49 RATIO 03/14/2011 Unknow n GFR CALC 9245813 GFR AA >60 ML/MIN 11/11/2010 Unknown GFR CALC 2866021 GFR NON-AA >60 ML/MIN 11/11/2010 Unknown LIPID GROUP 14225 HDL TEST 39 MG/DL 11/11/2010 Unknown LIPID GROUP 68904 TRIG 212 MG/DL 11/11/2010 Unknown LIPID GROUP 23854 TEST LDL 67 MG/DL 11/11/2010 Unknown LIPID GROUP 45452 CHOL 148 MG/DL 11/11/2010 Unknown LIPID GROUP 58079 RCHOL/HDL 3.79 RATIO 11/11/2010 Unknow n COMPREHENSIVE METABOLIC 90648 AST 17 U/L 2010 Unknown COMPREHENSIVE METABOLIC 39160 ALT 21 IU/L 2010 Unknown COMPREHENSIVE METABOLIC 06516 BUN 16 MG/DL 2010 Unknown COMPREHENSIVE METABOLIC 75294 ALBUMIN 4.6 GM/DL 2010 Unknown COMPREHENSIVE METABOLIC 89807 CHLORIDE 106 MMOL/L 11/11 Unknown COMPREHENSIVE METABOLIC 93814 BILI TOT 0.5 MG/DL 2010 Unknown COMPREHENSIVE METABOLIC 09501 ALK PHOS 61 U/L 2010 Unknown COMPREHENSIVE METABOLIC 20634 SODIUM 139 MMOL/L 11/11 Unknown COMPREHENSIVE METABOLIC 11972 CREATININE 1.00 MG/DL 11/2010 Unknown COMPREHENSIVE METABOLIC 34896 CALCIUM 9.5 MG/DL 2010 Unknown COMPREHENSIVE METABOLIC 90060 POTASSIUM 4.5 MMOL/L 11/11 Unknown COMPREHENSIVE METABOLIC 63353 PROT TOT 6.9 GM/DL 2010 Unknown COMPREHENSIVE METABOLIC 36491 Glucose 111 MG/DL 2010 Unknown COMPREHENSIVE METABOLIC 91351 BICARB 26 MMOL/L 2010 Unknown COMPREHENSIVE METABOLIC 81208 ANION GAP 7 MEQ/L 2010 Unknown HEMOGLOBIN A1C (GLYCOSYLATED) 07175 A1C HPLC 97909-5 5.6 % 07/24/2010 Unknown GFR CALC 3101616 GFR AA >60 ML/MIN 07/23/2010 Unknown GFR CALC 5847748 GFR NON-AA >60 ML/MIN 07/23/2010 Unknown COMPREHENSIVE METABOLIC 37385 AST 19 U/L 2010 Unknown COMPREHENSIVE METABOLIC 36003 ALT 33 IU/L 2010 Unknown COMPREHENSIVE METABOLIC 17003 BUN 14 MG/DL 2010 Unknown COMPREHENSIVE METABOLIC 58639 ALBUMIN 4.7 GM/DL 2010 Unknown COMPREHENSIVE METABOLIC 16254 CHLORIDE 107 MMOL/L 07/23 Unknown COMPREHENSIVE METABOLIC 62326 BILI TOT 0.4 MG/DL 2010 Unknown COMPREHENSIVE METABOLIC 41167 ALK PHOS 80 U/L 2010 Unknown COMPREHENSIVE METABOLIC 21512 SODIUM 141 MMOL/L 07/23 Unknown COMPREHENSIVE METABOLIC 19613 CREATININE 0.97 MG/DL 07/05 Unknown COMPREHENSIVE METABOLIC 41230 CALCIUM 9.5 MG/DL 2010 Unknown COMPREHENSIVE METABOLIC 80012 POTASSIUM 4.1 MMOL/L 07/23 Unknown COMPREHENSIVE METABOLIC 95364 PROT TOT 6.8 GM/DL 2010 Unknown COMPREHENSIVE METABOLIC 60415 Glucose 120 MG/DL 2010 Unknown COMPREHENSIVE METABOLIC 20160 BICARB 26 MMOL/L 2010 Unknown COMPREHENSIVE METABOLIC 03341 ANION GAP 8 MEQ/L 2010 Unknown LIPID GROUP 80658 HDL TEST 41 MG/DL 07/23/2010 Unknown LIPID GROUP 00487 TRIG 175 MG/DL 07/23/2010 Unknown LIPID GROUP 85277 TEST LDL 72 MG/DL 07/23/2010 Unknown LIPID GROUP 56629 CHOL 148 MG/DL 07/23/2010 Unknown LIPID GROUP 33851 RCHOL/HDL 3.61 RATIO 07/23/2010 Unknow n PSA FREE AND TOTAL 85320|10984 % FREE PSA FOOTNOTE % 011 Unknown PSA FREE AND TOTAL 84403|79196 XPSA TOTAL 0.83 NG/ML 011 Unknown PSA FREE AND TOTAL 44418|42071 XPSA FREE 0.13 NG/ML 04/26/19 11 Unknown VITAMIN D TOTAL (25 HYDROXY) 00949 VIT D TOTL 26 NG/ML 04/22/2010 Unknown TESTOSTERONE TOTAL 52918 TESTOS TO 387 NG/DL 04/19/2010 Unknown GFR CALC 6784101 GFR AA >60 ML/MIN 04/19/2010 Unknown GFR CALC 8480599 GFR NON-AA >60 ML/MIN 04/19/2010 Unknown COMPLETE BLOOD COUNT 95749 WBC 7.0 10e9/L 04/19/19 11 Unknown COMPLETE BLOOD COUNT 12039 RBC 5.07 10e12/L 2010 Unknown COMPLETE BLOOD COUNT 94221 HGB 15.6 g/dL 1 Unknown COMPLETE BLOOD COUNT 93407 HCT DET 46.2 % 1 Unknown COMPLETE BLOOD COUNT 51412 MCV 91.1 fL 1 Unknown COMPLETE BLOOD COUNT 33425 MCH 30.8 pg 1 Unknown COMPLETE BLOOD COUNT 83251 MCHC 33.8 g/dL 1 Unknown COMPLETE BLOOD COUNT 43248 PLT 205 10e9/L 04/19/19 11 Unknown COMPLETE BLOOD COUNT 10223 MPV 11.1 fL 1 Unknown COMPLETE BLOOD COUNT 86937 SAMIR % 62.4 % 1 Unknown COMPLETE BLOOD COUNT 31437 LY % 28.5 % 1 Unknown COMPLETE BLOOD COUNT 76615 MON % 6.9 % 1 Unknown COMPLETE BLOOD COUNT 21621 EOS % 2.1 % 1 Unknown COMPLETE BLOOD COUNT 07587 BASO % 0.1 % 1 Unknown COMPLETE BLOOD COUNT 07826 RDW 13.4 % 1 Unknown COMPLETE BLOOD COUNT 52655 ABS SAMIR 4.37 10e9/L 011 Unknown COMPLETE BLOOD COUNT 85063 ABS LYMPH 2.00 10e9/L 011 Unknown COMPLETE BLOOD COUNT 66961 ABS MONO 0.48 10e9/L 011 Unknown COMPLETE BLOOD COUNT 28519 ABS EOS 0.15 10e9/L 011 Unknown COMPLETE BLOOD COUNT 40459 ABS BASO 0.01 10e9/L 011 Unknown COMPLETE BLOOD COUNT 89678 RDW-SD 43.8 fL 1 Unknown LIPID GROUP 00095 HDL TEST 39 MG/DL 04/19/2010 Unknown LIPID GROUP 00183 TRIG 244 MG/DL 04/19/2010 Unknown LIPID GROUP 79105 TEST LDL 168 MG/DL 04/19/2010 Unknown LIPID GROUP 92439 CHOL 256 MG/DL 04/19/2010 Unknown LIPID GROUP 62031 RCHOL/HDL 6.56 RATIO 04/19/2010 Unknow n COMPREHENSIVE METABOLIC 00976 AST 28 U/L 2010 Unknown COMPREHENSIVE METABOLIC 23069 ALT 46 IU/L 2010 Unknown COMPREHENSIVE METABOLIC 91847 BUN 14 MG/DL 2010 Unknown COMPREHENSIVE METABOLIC 71562 ALBUMIN 4.9 GM/DL 2010 Unknown COMPREHENSIVE METABOLIC 50975 CHLORIDE 104 MMOL/L 04/19 Unknown COMPREHENSIVE METABOLIC 06763 BILI TOT 0.8 MG/DL 2010 Unknown COMPREHENSIVE METABOLIC 95438 ALK PHOS 71 U/L 2010 Unknown COMPREHENSIVE METABOLIC 55984 SODIUM 139 MMOL/L 04/19 Unknown COMPREHENSIVE METABOLIC 71527 CREATININE 1.06 MG/DL 04/06 Unknown COMPREHENSIVE METABOLIC 32004 CALCIUM 9.9 MG/DL 2010 Unknown COMPREHENSIVE METABOLIC 97280 POTASSIUM 4.3 MMOL/L 04/19 Unknown COMPREHENSIVE METABOLIC 88596 PROT TOT 7.2 GM/DL 2010 Unknown COMPREHENSIVE METABOLIC 87041 Glucose 99 MG/DL 2010 Unknown COMPREHENSIVE METABOLIC 45395 BICARB 28 MMOL/L 2010 Unknown COMPREHENSIVE METABOLIC 48934 ANION GAP 7 MEQ/L 2010 Unknown FREE T4 55722 FREE T4 1.26 NG/DL 04/19/2010 Unknown Procedures Procedure Codes Date ROUTINE VENIPUNCTURE CPT-4: 78056 05/24/2019 COMPREHEN METABOLIC PANEL CPT-4: 31370 05/24/2019 A1C HPLC CPT-4: 15869 05/24/2019 FLU VACC PRSV FREE INC ANTIG 65 AND OLDER CPT-4: 25729 01/26/2019 FLU VACC PRSV FREE INC ANTIG 65 AND OLDER CPT-4: 88321 01/26/2019 ADMIN INFLUENZA VIRUS VAC CPT-4: G0008 01/26/2019 ROUTINE VENIPUNCTURE CPT-4: 04962 01/26/2019 COMPREHEN METABOLIC PANEL CPT-4: 01051 01/26/2019 COMPLETE CBC W/AUTO DIFF WBC CPT-4: 32197 01/26/2019 LIPID PANEL CPT-4: 94970 01/26/2019 A1C HPLC CPT-4: 04887 01/26/2019 ROUTINE VENIPUNCTURE CPT-4: 63661 09/30/2018 METABOLIC PANEL TOTAL CA CPT-4: 59287 09/30/2018 URINALYSIS NONAUTO W/O SCOPE CPT-4: 64031 08/19/2018 URINE CULTURE/ COLONY COUNT CPT-4: 09228 08/19/2018 MICROALBUMIN QUANTITATIVE CPT-4: 01385 08/19/2018 ROUTINE VENIPUNCTURE CPT-4: 61306 08/16/2018 ASSAY THYROID STIM HORMONE CPT-4: 58424 08/16/2018 COMPREHEN METABOLIC PANEL CPT-4: 86626 08/16/2018 COMPLETE CBC W/AUTO DIFF WBC CPT-4: 64222 08/16/2018 LIPID PANEL CPT-4: 14400 08/16/2018 A1C HPLC CPT-4: 68208 08/16/2018 LIPID PANEL CPT-4: 49175 05/05/2018 COMPREHEN METABOLIC PANEL CPT-4: 18413 05/05/2018 ROUTINE VENIPUNCTURE CPT-4: 54353 05/05/2018 A1C HPLC CPT-4: 15096 05/05/2018 COMPLETE CBC W/AUTO DIFF WBC CPT-4: 74984 05/05/2018 ASSAY THYROID STIM HORMONE CPT-4: 30032 05/05/2018 MICROALBUMIN QUANTITATIVE CPT-4: 32433 01/19/2018 PRESCRIP TRANSMIT VIA ERX SY CPT-4: G8553 01/19/2018 ROUTINE VENIPUNCTURE CPT-4: 68394 01/13/2018 COMPREHEN METABOLIC PANEL CPT-4: 48922 01/13/2018 A1C HPLC CPT-4: 96528 01/13/2018 LIPID PANEL CPT-4: 69745 01/13/2018 ASSAY OF PSA TOTAL CPT-4: 59042 01/13/2018 ASSAY THYROID STIM HORMONE CPT-4: 90524 01/13/2018 ROUTINE VENIPUNCTURE CPT-4: 75929 10/06/2017 COMPREHEN METABOLIC PANEL CPT-4: 62005 10/06/2017 COMPLETE CBC W/AUTO DIFF WBC CPT-4: 39082 10/06/2017 LIPID PANEL CPT-4: 32637 10/06/2017 A1C HPLC CPT-4: 56462 10/06/2017 VITAMIN B-12 CPT-4: 08398 10/06/2017 DESTRUCT PREMALG LESION (Cryosurgery) CPT-4: 28972 DESTRUCT PREMALG LES 2-14 CPT-4: 28488 04/23/2017 PRESCRIP TRANSMIT VIA ERX SY CPT-4: G8553 03/11/2017 ROUTINE VENIPUNCTURE CPT-4: 95227 03/05/2017 ASSAY OF FREE THYROXINE CPT-4: 24636 03/05/2017 ASSAY THYROID STIM HORMONE CPT-4: 99124 03/05/2017 COMPREHEN METABOLIC PANEL CPT-4: 54257 03/05/2017 COMPLETE CBC W/AUTO DIFF WBC CPT-4: 97144 03/05/2017 LIPID PANEL CPT-4: 73159 03/05/2017 A1C HPLC CPT-4: 12602 03/05/2017 ROUTINE VENIPUNCTURE CPT-4: 15768 06/16/2016 ASSAY OF FREE THYROXINE CPT-4: 48393 06/16/2016 ASSAY THYROID STIM HORMONE CPT-4: 79758 06/16/2016 COMPREHEN METABOLIC PANEL CPT-4: 24182 06/16/2016 COMPLETE CBC W/AUTO DIFF WBC CPT-4: 20451 06/16/2016 LIPID PANEL CPT-4: 91540 06/16/2016 A1C HPLC CPT-4: 92947 06/16/2016 ROUTINE VENIPUNCTURE CPT-4: 71107 03/06/2016 ASSAY OF FREE THYROXINE CPT-4: 86202 03/06/2016 ASSAY THYROID STIM HORMONE CPT-4: 31974 03/06/2016 COMPREHEN METABOLIC PANEL CPT-4: 28633 03/06/2016 COMPLETE CBC W/AUTO DIFF WBC CPT-4: 07069 03/06/2016 LIPID PANEL CPT-4: 02440 03/06/2016 A1C HPLC CPT-4: 72150 03/06/2016 PRESCRIP TRANSMIT VIA ERX SY CPT-4: G8553 09/10/2015 PNEUMOCOCCAL VACC 23 ROSANNE IM CPT-4: 15140 09/06/2015 ADMIN PNEUMOCOCCAL VACCINE CPT-4: G0009 09/06/2015 ROUTINE VENIPUNCTURE CPT-4: 36024 08/31/2015 COMPREHEN METABOLIC PANEL CPT-4: 38924 08/31/2015 COMPLETE CBC W/AUTO DIFF WBC CPT-4: 60941 08/31/2015 LIPID PANEL CPT-4: 31072 08/31/2015 ASSAY OF PSA TOTAL CPT-4: 41832 08/31/2015 A1C HPLC CPT-4: 15478 08/31/2015 ASSAY OF FREE THYROXINE CPT-4: 31491 08/31/2015 ASSAY THYROID STIM HORMONE CPT-4: 97262 08/31/2015 PRESCRIP TRANSMIT VIA ERX SY CPT-4: G8553 06/29/2015 FLU VACC PRSV FREE INC ANTIG 65 AND OLDER CPT-4: 07787 01/17/2015 PNEUMOCOCCAL VACC 13 ROSANNE IM CPT-4: 10207 01/17/2015 ADMIN INFLUENZA VIRUS VAC CPT-4: G0008 01/17/2015 ADMIN PNEUMOCOCCAL VACCINE CPT-4: G0009 01/17/2015 DESTRUCT PREMALG LESION (Cryosurgery) CPT-4: 24058 PRESCRIP TRANSMIT VIA ERX SY CPT-4: G8553 01/17/2015 ROUTINE VENIPUNCTURE CPT-4: 75306 01/12/2015 COMPREHEN METABOLIC PANEL CPT-4: 85313 01/12/2015 COMPLETE CBC W/AUTO DIFF WBC CPT-4: 29658 01/12/2015 LIPID PANEL CPT-4: 40992 01/12/2015 A1C HPLC CPT-4: 28620 01/12/2015 DESTRUCT PREMALG LESION (Cryosurgery) CPT-4: 24265 ROUTINE VENIPUNCTURE CPT-4: 46605 08/15/2014 COMPREHEN METABOLIC PANEL CPT-4: 33845 08/15/2014 COMPLETE CBC W/AUTO DIFF WBC CPT-4: 45604 08/15/2014 LIPID PANEL CPT-4: 04638 08/15/2014 A1C HPLC CPT-4: 41704 08/15/2014 ASSAY OF PSA TOTAL CPT-4: 89801 08/15/2014 ASSAY OF FREE THYROXINE CPT-4: 78040 08/15/2014 ASSAY THYROID STIM HORMONE CPT-4: 83469 08/15/2014 ROUTINE VENIPUNCTURE CPT-4: 52150 12/14/2013 ASSAY OF FREE THYROXINE CPT-4: 09142 12/14/2013 ASSAY THYROID STIM HORMONE CPT-4: 05220 12/14/2013 COMPREHEN METABOLIC PANEL CPT-4: 65813 12/14/2013 COMPLETE CBC W/AUTO DIFF WBC CPT-4: 37981 12/14/2013 LIPID PANEL CPT-4: 00869 12/14/2013 A1C HPLC CPT-4: 16707 12/14/2013 ROUTINE VENIPUNCTURE CPT-4: 04587 06/08/2013 ASSAY OF FREE THYROXINE CPT-4: 10567 06/08/2013 ASSAY THYROID STIM HORMONE CPT-4: 96325 06/08/2013 COMPREHEN METABOLIC PANEL CPT-4: 55479 06/08/2013 COMPLETE CBC W/AUTO DIFF WBC CPT-4: 85422 06/08/2013 LIPID PANEL CPT-4: 20505 06/08/2013 A1C HPLC CPT-4: 80787 06/08/2013 ROUTINE VENIPUNCTURE CPT-4: 28734 11/11/2012 COMPREHEN METABOLIC PANEL CPT-4: 80539 11/11/2012 COMPLETE CBC W/AUTO DIFF WBC CPT-4: 39004 11/11/2012 LIPID PANEL CPT-4: 35211 11/11/2012 A1C GLYCOSYLATED HEMOGLOBIN TEST CPT-4: 23263 013 ASSAY THYROID STIM HORMONE CPT-4: 47661 11/11/2012 ROUTINE VENIPUNCTURE CPT-4: 97486 05/04/2012 ASSAY OF FREE THYROXINE CPT-4: 38195 05/04/2012 ASSAY THYROID STIM HORMONE CPT-4: 03248 05/04/2012 COMPREHEN METABOLIC PANEL CPT-4: 16671 05/04/2012 COMPLETE CBC W/AUTO DIFF WBC CPT-4: 88774 05/04/2012 LIPID PANEL CPT-4: 73682 05/04/2012 DESTRUCT PREMALG LESION (Cryosurgery) CPT-4: 27720 DESTRUCT PREMALG LES 2-14 CPT-4: [id number] 03/02/2012 ROUTINE VENIPUNCTURE CPT-4: 27820 10/29/2011 COMPREHEN METABOLIC PANEL CPT-4: 39794 10/29/2011 LIPID PANEL CPT-4: 81932 10/29/2011 A1C GLYCOSYLATED HEMOGLOBIN TEST CPT-4: 52366 012 ROUTINE VENIPUNCTURE CPT-4: 82288 07/29/2011 COMPREHEN METABOLIC PANEL CPT-4: 57020 07/29/2011 LIPID PANEL CPT-4: 49098 07/29/2011 A1C GLYCOSYLATED HEMOGLOBIN TEST CPT-4: 38649 012 ROUTINE VENIPUNCTURE CPT-4: 51345 03/14/2011 COMPREHEN METABOLIC PANEL CPT-4: 29895 03/14/2011 LIPID PANEL CPT-4: 18466 03/14/2011 A1C GLYCOSYLATED HEMOGLOBIN TEST CPT-4: 52138 011 ROUTINE VENIPUNCTURE CPT-4: 26145 11/11/2010 COMPREHEN METABOLIC PANEL CPT-4: 52762 11/11/2010 LIPID PANEL CPT-4: 53738 11/11/2010 URINE CULTURE/ COLONY COUNT CPT-4: 62675 11/11/2010 URINALYSIS NONAUTO W/O SCOPE CPT-4: 09580 10/29/2010 URINE CULTURE/ COLONY COUNT CPT-4: 03760 10/29/2010 LIPID PANEL CPT-4: 22771 07/23/2010 COMPREHEN METABOLIC PANEL CPT-4: 19774 07/23/2010 ROUTINE VENIPUNCTURE CPT-4: 49319 07/23/2010 ROUTINE VENIPUNCTURE CPT-4: 57112 04/26/2010 PSA FREE AND TOTAL CPT-4: 40686|19333 04/26/2010 OCCULT BLOOD FECES CPT-4: 94554 04/24/2010 ROUTINE VENIPUNCTURE CPT-4: 03335 04/19/2010 COMPLETE CBC W/AUTO DIFF WBC CPT-4: 27315 04/19/2010 COMPREHEN METABOLIC PANEL CPT-4: 32915 04/19/2010 LIPID PANEL CPT-4: 01730 04/19/2010 TESTOSTERONE TOTAL - MALE CPT-4: 26203 04/19/2010 ASSAY THYROID STIM HORMONE CPT-4: 42343 04/19/2010 ASSAY OF FREE THYROXINE CPT-4: 08244 04/19/2010 VITAMIN D TOTAL (25 HYDROXY) CPT-4: 79680 04/19/2010 Vital Signs Date Vital 06/02/2019 Blood Pressure 1: 132/80 Code: 8480-6 BMI: 29.5 Code: 98140-8 Heart Rate 1: 64 bpm Height: 6'3" [...] 1: 112/70 Code: 8480-6 BMI: 28.9 Code: 89298-0 Heart Rate 1: 60 bpm Height: 6'3" Respiratory Rate: 20 bpm SpO2: 95% Tempera ture: 36.6 (C) / 97.9 (F) Weight: 231 lbs 01/19/2018 Blood Pressure 1: 150/82 Code: 8480-6 Heart Rate 1: 63 bpm Respiratory Rate: 18 bpm SpO2: 98% Temperature: 36.0 (C) / 96.8 (F) We ight: 225 lbs 10/15/2017 Blood Pressure 1: 126/82 Code: 8480-6 BMI: 27.9 Code: 75725-6 Heart Rate 1: 64 bpm Height: 6'3" Respiratory Rate: 20 bpm SpO2: 96% Tempera ture: 36.7 (C) / 98.1 (F) Weight: 223 lbs 04/23/2017 Blood Pressure 1: 136/74 Code: 8480-6 BMI: 28.7 Code: 58326-1 Heart Rate 1: 76 bpm Height: 6'3" Respiratory Rate: 20 bpm Temperature: 37 .0 (C) / 98.6 (F) Weight: 230 lbs 03/11/2017 Blood Pressure 1: 136/66 Code: 8480-6 BMI: 28.6 Code: 42179-5 Heart Rate 1: 60 bpm Height: 6'3" Respiratory Rate: 20 bpm Temperature: 36 .7 (C) / 98.1 (F) Weight: 229 lbs 07/09/2016 Blood Pressure 1: 132/80 Code: 8480-6 BMI: 27.7 Code: 88287-4 Heart Rate 1: 64 bpm Height: 6'3" Respiratory Rate: 20 bpm SpO2: 96% Tempera ture: 36.9 (C) / 98.4 (F) Weight: 222 lbs 03/10/2016 Blood Pressure 1: 134/78 Code: 8480-6 BMI: 28.5 Code: 42101-8 Heart Rate 1: 60 bpm Height: 6'3" Respiratory Rate: 20 bpm SpO2: 96% Tempera ture: 36.7 (C) / 98.1 (F) Weight: 228 lbs 09/12/2015 Blood Pressure 1: 136/78 Code: 8480-6 Heart Rate 1: 84 bpm Height: Respiratory Rate: 24 bpm SpO2: 97% Temperature: 36.4 (C) / 97.6 (F) We ight: 09/10/2015 Blood Pressure 1: 124/76 Code: 8480-6 BMI: 28.5 Code: 77930-3 Heart Rate 1: 76 bpm Height: 6'3" Respiratory Rate: 24 bpm SpO2: 97% Tempera ture: 36.4 (C) / 97.6 (F) Weight: 228 lbs 09/06/2015 Blood Pressure 1: 124/82 Code: 8480-6 BMI: 29.0 Code: 92489-2 Heart Rate 1: 66 bpm Height: 6'3" Respiratory Rate: 20 bpm SpO2: 97% Tempera ture: 36.4 (C) / 97.6 (F) Weight: 232 lbs 06/29/2015 Blood Pressure 1: 124/82 Code: 8480-6 Heart Rate 1: 88 bpm Height: Respiratory Rate: 20 bpm Temperature: 36.7 (C) / 98.1 (F) Weight: 01/17/2015 Blood Pressure 1: 124/78 Code: 8480-6 BMI: 27.7 Code: 13967-8 Heart Rate 1: 76 bpm Height: 6'3" Respiratory Rate: 20 bpm Temperature: 36 .6 (C) / 97.8 (F) Weight: 222 lbs 09/19/2014 Blood Pressure 1: 128/80 Code: 8480-6 BMI: 27.4 Code: 29309-7 Heart Rate 1: 64 bpm Height: 6'3" Respiratory Rate: 20 bpm Temperature: 36 .4 (C) / 97.6 (F) Weight: 219 lbs 10/17/2013 Blood Pressure 1: 116/70 Code: 8480-6 Heart Rate 1: 88 bpm Respiratory Rate: 20 bpm Temperature: 36.9 (C) / 98.4 (F) Weight: 220 lbs 09/23/2013 Blood Pressure 1: 124/80 Code: 8480-6 BMI: 28.7 Code: 52418-7 Heart Rate 1: 76 bpm Height: 6'3" Respiratory Rate: 20 bpm Temperature: 36 .8 (C) / 98.2 (F) Weight: 230 lbs 07/22/2013 Blood Pressure 1: 128/70 Code: 8480-6 He art Rate 1: 78 bpm 06/20/2013 Blood Pressure 1: 144/86 Code: 8480-6 BMI: 28.7 Code: 81417-4 Heart Rate 1: 92 bpm Height: 6'3" Respiratory Rate: 20 bpm Temperature: 36 .4 (C) / 97.6 (F) Weight: 230 lbs 11/25/2012 Blood Pressure 1: 128/80 Code: 8480-6 BMI: 27.5 Code: 05508-9 Heart Rate 1: 92 bpm Height: 6'3" Respiratory Rate: 20 bpm Temperature: 36 .8 (C) / 98.3 (F) Weight: 220 lbs 08/27/2012 Blood Pressure 1: 142/80 Code: 8480-6 BMI: 27.7 Code: 95388-5 Heart Rate 1: 76 bpm Height: 6'3" Respiratory Rate: 20 bpm Temperature: 36 .8 (C) / 98.3 (F) Weight: 222 lbs 05/11/2012 Blood Pressure 1: 136/80 Code: 8480-6 BMI: 27.7 Code: 44124-9 Heart Rate 1: 76 bpm Height: 6'3" Respiratory Rate: 20 bpm Temperature: 36 .8 (C) / 98.3 (F) Weight: 222 lbs 03/02/2012 Blood Pressure 1: 136/70 Code: 8480-6 BMI: 28.0 Code: 07525-5 Heart Rate 1: 80 bpm Height: 6'3" Respiratory Rate: 20 bpm Temperature: 36 .6 (C) / 97.8 (F) Weight: 224 lbs 12/11/2011 Blood Pressure 1: 142/80 Code: 8480-6 BMI: 27.1 Code: 63811-5 Heart Rate 1: 84 bpm Height: 6'3" Respiratory Rate: 20 bpm Temperature: 36 .9 (C) / 98.4 (F) Weight: 217 lbs 08/14/2011 Blood Pressure 1: 130/82 Code: 8480-6 He art Rate 1: 64 bpm 07/29/2011 Blood Pressure 1: 132/64 Code: 8480-6 BMI: 26.7 Code: 23220-5 Heart Rate 1: 72 bpm Height: 6'3" [...] 1: 142/88 Code: 8480-6 BMI: 26.4 Code: 48151-5 Heart Rate 1: 80 bpm Height: 6'3" [...] labs Encounters Encounter Performer Location Codes Date ([id number]) OFFICE/OUTPATIENT VISIT EST Diagnosis: Essential (primary) hypertension[ICD10: I10] Diagnosis: Gastro-esophageal reflux disease without esophagitis[ICD10: K21.9] Diagnosis: Type 2 diabetes mellitus with hyperglycemia[ICD10: E11.65] Najma MCARTHUR [facility] CPT-4: 29663 06/02/2019 ([id number]) NURSE/OUTPATIENT VISIT EST Diagnosis: Type 2 diabetes mellitus without complications[ICD10: E11.9] Diagnosis: Essential (primary) hypertension[ICD10: I10] Diagnosis: Mixed hyperlipidemia[ICD10: E78.2] Najma ROWAN [facility] CPT-4: 73032 05/24/2019 ([id number]) OFFICE/OUTPATIENT VISIT EST Diagnosis: Essential (primary) hypertension[ICD10: I10] Diagnosis: Type 2 diabetes mellitus without complications[ICD10: E11.9] Diagnosis: Mixed hyperlipidemia[ICD10: E78.2] Najma ROWAN [facility] CPT-4: 01203 01/31/2019 ([id number]) NURSE/OUTPATIENT VISIT EST Diagnosis: Mixed hyperlipidemia[ICD10: E78.2] Diagnosis: Type 2 diabetes mellitus without complications[ICD10: E11.9] Diagnosis: Essential (primary) hypertension[ICD10: I10] Diagnosis: Chronic kidney disease, unspecified[ICD10: N18.9] Najma OG DO [facility] CPT-4: 13937 01/26/2019 ([id number]) NURSE/OUTPATIENT VISIT EST Diagnosis: Chronic kidney disease, unspecified[ICD10: N18.9] Diagnosis: Essential (primary) hypertension[ICD10: I10] Najma OG DO [facility] CPT-4: 21377 09/30/2018 ([id number]) OFFICE/OUTPATIENT VISIT EST Diagnosis: Essential (primary) hypertension[ICD10: I10] Diagnosis: Type 2 diabetes mellitus without complications[ICD10: E11.9] Diagnosis: Mixed hyperlipidemia[ICD10: E78.2] Diagnosis: Unspecified kidney failure[ICD10: N19] Najma OG [employer] CPT-4: 19250 08/19/2018 ([id number]) NURSE/OUTPATIENT VISIT EST Diagnosis: Essential (primary) hypertension[ICD10: I10] Diagnosis: Type 1 diabetes mellitus with unspecified complications[ICD10: E10.8] Diagnosis: Mixed hyperlipidemia[ICD10: E78.2] Najma GODINEZ [employer] CPT-4: 13416 08/16/2018 ([id number]) OFFICE/OUTPATIENT VISIT EST Diagnosis: Essential (primary) hypertension[ICD10: I10] Diagnosis: Type 2 diabetes mellitus without complications[ICD10: E11.9] Diagnosis: Mixed hyperlipidemia[ICD10: E78.2] Najma OG [employer] CPT-4: 68845 05/10/2018 ([id number]) NURSE/OUTPATIENT VISIT EST Diagnosis: Essential (primary) hypertension[ICD10: I10] Diagnosis: Mixed hyperlipidemia[ICD10: E78.2] Diagnosis: Type 1 diabetes mellitus with unspecified complications[ICD10: E10.8] Najma OG [employer] CPT-4: 13968 05/05/2018 ([id number]) OFFICE/OUTPATIENT VISIT EST Diagnosis: Type 2 diabetes mellitus without complications[ICD10: E11.9] Diagnosis: Mixed hyperlipidemia[ICD10: E78.2] Diagnosis: Nicotine dependence, unspecified, uncomplicated[ICD10: F17.200] Diagnosis: Essential (primary) hypertension[ICD10: I10] Najma OG [employer] CPT-4: 16844 01/19/2018 ([id number]) NURSE/OUTPATIENT VISIT EST Diagnosis: Type 1 diabetes mellitus with unspecified complications[ICD10: E10.8] Diagnosis: Essential (primary) hypertension[ICD10: I10] Diagnosis: Male erectile disorder[ICD10: F52.21] Diagnosis: Encounter for screening for malignant neoplasm of prostate[ICD10: Z12.5] Najma OG [employer] CPT-4: 66065 01/13/2018 ([id number]) OFFICE/OUTPATIENT VISIT EST Diagnosis: Type 2 diabetes mellitus without complications[ICD10: E11.9] Diagnosis: Essential (primary) hypertension[ICD10: I10] Diagnosis: Mixed hyperlipidemia[ICD10: E78.2] Najma OG [employer] CPT-4: 73992 10/15/2017 ([id number]) NURSE/OUTPATIENT VISIT EST Diagnosis: Type 2 diabetes mellitus without complications[ICD10: E11.9] Diagnosis: Mixed hyperlipidemia[ICD10: E78.2] Diagnosis: Essential (primary) hypertension[ICD10: I10] Diagnosis: Glossitis[ICD10: K14.0] Najma THAKKAR [employer] CPT-4: 56032 10/06/2017 ([id number]) OFFICE/OUTPATIENT VISIT EST Diagnosis: Type 2 diabetes mellitus without complications[ICD10: E11.9] Diagnosis: Mixed hyperlipidemia[ICD10: E78.2] Diagnosis: Essential (primary) hypertension[ICD10: I10] Najma OG [employer] CPT-4: 27799 03/11/2017 ([id number]) OFFICE/OUTPATIENT VISIT EST Diagnosis: Type 1 diabetes mellitus with unspecified complications[ICD10: E10.8] Diagnosis: Mixed hyperlipidemia[ICD10: E78.2] Diagnosis: Essential (primary) hypertension[ICD10: I10] Diagnosis: Other fatigue[ICD10: R53.83] Najma OG [facility] CPT-4: 35313 03/05/2017 ([id number]) OFFICE/OUTPATIENT VISIT EST Diagnosis: Type 2 diabetes mellitus without complications[ICD10: E11.9] Diagnosis: Mixed hyperlipidemia[ICD10: E78.2] Diagnosis: Essential (primary) hypertension[ICD10: I10] Diagnosis: Nicotine dependence, unspecified, uncomplicated[ICD10: F17.200] Najma OG DO [facility] CPT-4: 41276 07/09/2016 ([id number]) OFFICE/OUTPATIENT VISIT EST Diagnosis: Type 1 diabetes mellitus with unspecified complications[ICD10: E10.8] Diagnosis: Mixed hyperlipidemia[ICD10: E78.2] Diagnosis: Essential (primary) hypertension[ICD10: I10] Najma OG DO [facility] CPT-4: 24137 06/16/2016 ([id number]) OFFICE/OUTPATIENT VISIT EST Diagnosis: Type 2 diabetes mellitus without complications[ICD10: E11.9] Diagnosis: Mixed hyperlipidemia[ICD10: E78.2] Diagnosis: Essential (primary) hypertension[ICD10: I10] Najma OG [facility] CPT-4: 87522 03/10/2016 ([id number]) OFFICE/OUTPATIENT VISIT EST Diagnosis: Type 1 diabetes mellitus with unspecified complications[ICD10: E10.8] Diagnosis: Mixed hyperlipidemia[ICD10: E78.2] Diagnosis: Essential (primary) hypertension[ICD10: I10] Najma OG [facility] CPT-4: 79340 03/06/2016 ([id number]) OFFICE/OUTPATIENT VISIT EST Diagnosis: Bitten or stung by nonvenomous insect and other nonvenomous arthropods, subsequent encounter[ICD10: W57.XXXD] Diagnosis: Insect bite (nonvenomous), right thigh, subsequent encounter[ICD10: S70.361D] Barbara Brower NAJMA OG [facility] CPT-4: 70994 11/2015 ([id number]) OFFICE/OUTPATIENT VISIT EST Diagnosis: Bitten or stung by nonvenomous insect and other nonvenomous arthropods, initial encounter[ICD10: W57.XXXA] Diagnosis: Insect bite (nonvenomous), right thigh, initial encounter[ICD10: S70.361A] Barbara Brower NAJMA [facility] CPT-4: 70641 09/2015 ([id number]) OFFICE/OUTPATIENT VISIT EST Diagnosis: Mixed hyperlipidemia[ICD10: E78.2] Diagnosis: Essential (primary) hypertension[ICD10: I10] Diagnosis: Type 2 diabetes mellitus without complications[ICD10: E11.9] Diagnosis: Encounter for immunization[ICD10: Z23] Diagnosis: Encounter for screening for malignant neoplasm of colon[ICD10: Z12.11] Diagnosis: Abnormal weight gain[ICD10: R63.5] Barbara Brower ANUM GODINEZ [employer] CPT-4: 87279 09/06/2015 ([id number]) OFFICE/OUTPATIENT VISIT EST Diagnosis: Type 2 diabetes mellitus without complications[ICD10: E11.9] Diagnosis: Mixed hyperlipidemia[ICD10: E78.2] Diagnosis: Essential (primary) hypertension[ICD10: I10] Diagnosis: Encounter for screening for malignant neoplasm of prostate[ICD10: Z12.5] Diagnosis: Other fatigue[ICD10: R53.83] Najma MCARTHUR [employer] CPT-4: 82177 08/31/2015 OFFICE/OUTPATIENT VISIT EST Diagnosis: Diarrhea, unspecified[ICD10: R19.7] Henrietta MCCOY [facility] CPT-4: 69718 06/29/2015 OFFICE/OUTPATIENT VISIT EST Diagnosis: PNEUMOCOCCAL VACCINE[ICD10: Z23] Diagnosis: FLU VACCINE[ICD10: Z23] Diagnosis: Essential (primary) hypertension[ICD10: I10] Diagnosis: Mixed hyperlipidemia[ICD10: E78.2] Diagnosis: Type 1 diabetes mellitus with unspecified complications[ICD10: E10.8] Diagnosis: Actinic keratosis[ICD10: L57.0] Najma MCARTHUR [employer] CPT-4: 25530 01/17/2015 ([id number]) OFFICE/OUTPATIENT VISIT EST Diagnosis: Type 2 diabetes mellitus without complications[ICD10: E11.9] Diagnosis: Impaired fasting glucose[ICD10: R73.01] Diagnosis: Mixed hyperlipidemia[ICD10: E78.2] Diagnosis: Essential (primary) hypertension[ICD10: I10] Najma OG [facility] CPT-4: 79744 01/12/2015 ([id number]) OFFICE/OUTPATIENT VISIT EST Diagnosis: - I - HYPERLIPIDEMIA NEC/NOS[ICD9: 272.4] Diagnosis: HYPERTENSION[ICD9: 401.9] Diagnosis: DM W/O COMPLICATION TYPE II[ICD9: 250.00] Diagnosis: ACTINIC KERATOSIS[ICD9: 702.0] Najma OG DO [facility] CPT-4: 37317 09/19/2014 ([id number]) OFFICE/OUTPATIENT VISIT EST Diagnosis: HYPERLIPIDEMIA NEC/NOS[ICD9: 272.4] Diagnosis: HYPERTENSION[ICD9: 401.9] Diagnosis: IMPAIRED FASTING GLUCOSE[ICD9: 790.21] Diagnosis: MALAISE AND FATIGUE[ICD9: 780.79] Najma PENN Gregory AmeenaMatilde MERCEDES [facility] CPT-4: 86489 08/15/2014 ([id number]) OFFICE/OUTPATIENT VISIT EST Diagnosis: HYPERLIPIDEMIA NEC/NOS[ICD9: 272.4] Diagnosis: HYPERTENSION[ICD9: 401.9] Diagnosis: IMPAIRED FASTING GLUCOSE[ICD9: 790.21] Najma HAQUE ADELA LONG [facility] CPT-4: 26351 12/14/2013 ([id number]) OFFICE/OUTPATIENT VISIT EST Diagnosis: Post herpetic neuralgia[ICD9: 053.19] Najma BROOKS AmeenaMatilde KAHLIL [facility] CPT-4: 61777 10/17/2013 OFFICE/OUTPATIENT VISIT EST Diagnosis: Shingles[ICD9: 053.9] Diagnosis: Post herpetic neuralgia[ICD9: 053.19] Jeanie BROOKS AmeenaMatilde MERCEDES [facility] CPT-4: 68484 09/23/2013 ([id number]) OFFICE/OUTPATIENT VISIT EST Diagnosis: HYPERTENSION[ICD9: 401.9] Diagnosis: HYPERLIPIDEMIA NEC/NOS[ICD9: 272.4] Diagnosis: IMPAIRED FASTING GLUCOSE[ICD9: 790.21] Najma HAQUE ADELA OG [facility] CPT-4: 01496 06/20/2013 ([id number]) OFFICE/OUTPATIENT VISIT EST Diagnosis: HYPERLIPIDEMIA NEC/NOS[ICD9: 272.4] Diagnosis: MALAISE AND FATIGUE[ICD9: 780.79] Diagnosis: ROUTINE MEDICAL EXAM[ICD9: V70.0] Diagnosis: HYPERTENSION[ICD9: 401.9] Diagnosis: IMPAIRED FASTING GLUCOSE[ICD9: 790.21] Najma Heverpepperdasha SHABNAM ADELA OG [facility] CPT-4: 16507 06/08/2013 ([id number]) OFFICE/OUTPATIENT VISIT EST Diagnosis: HYPERLIPIDEMIA NEC/NOS[ICD9: 272.4] Diagnosis: HYPERTENSION[ICD9: 401.9] Diagnosis: IMPAIRED FASTING GLUCOSE[ICD9: 790.21] Diagnosis: DIARRHEA[ICD9: 787.91] Najma Grey HEVERELLIOT Stallings [facility] CPT-4: 69051 11/25/2012 ([id number]) OFFICE/OUTPATIENT VISIT EST Diagnosis: HYPERLIPIDEMIA NEC/NOS[ICD9: 272.4] Diagnosis: HYPERTENSION[ICD9: 401.9] Diagnosis: IMPAIRED FASTING GLUCOSE[ICD9: 790.21] Diagnosis: MALAISE AND FATIGUE[ICD9: 780.79] Najma Jenkins AmeenaMatilde KAHLIL [facility] CPT-4: 82136 11/11/2012 OFFICE/OUTPATIENT VISIT EST Diagnosis: Fungal dermatitis[ICD9: 111.9] Diagnosis: Dry skin dermatitis[ICD9: 692.89] Henrietta Grey KAHLIL [facility] CPT-4: 56020 08/27/2012 ([id number]) OFFICE/OUTPATIENT VISIT EST Diagnosis: HYPERTENSION[ICD9: 401.9] Diagnosis: HYPERLIPIDEMIA NEC/NOS[ICD9: 272.4] Najma MCCOY AmeenaMatilde KAHLIL [facility] CPT-4: 87545 05/11/2012 ([id number]) OFFICE/OUTPATIENT VISIT EST Diagnosis: HYPERLIPIDEMIA NEC/NOS[ICD9: 272.4] Diagnosis: HYPERTENSION[ICD9: 401.9] Diagnosis: ROUTINE MEDICAL EXAM[ICD9: V70.0] Najma Grey KAHLIL [facility] CPT-4: 80349 05/04/2012 ([id number]) OFFICE/OUTPATIENT VISIT EST Diagnosis: HYPERTENSION[ICD9: 401.9] Diagnosis: HYPERLIPIDEMIA NEC/NOS[ICD9: 272.4] Diagnosis: IMPAIRED FASTING GLUCOSE[ICD9: 790.21] Najma SAMSONNDER [facility] CPT-4: 68730 12/11/2011 ([id number]) OFFICE/OUTPATIENT VISIT EST Diagnosis: HYPERLIPIDEMIA NEC/NOS[ICD9: 272.4] Diagnosis: HYPERTENSION[ICD9: 401.9] Diagnosis: IMPAIRED FASTING GLUCOSE[ICD9: 790.21] Najma SAMSONNDER [facility] CPT-4: 41000 10/29/2011 ([id number]) OFFICE/OUTPATIENT VISIT EST Diagnosis: HYPERTENSION[ICD9: 401.9] Najma SAMSON NDER DO [facility] CPT-4: 34584 08/14/2011 ([id number]) OFFICE/OUTPATIENT VISIT EST Diagnosis: HYPERTENSION[ICD9: 401.9] Diagnosis: IMPAIRED FASTING GLUCOSE[ICD9: 790.21] Najma SAMSONNDER [facility] CPT-4: 26267 07/29/2011 ([id number]) OFFICE/OUTPATIENT VISIT EST Diagnosis: HYPERTENSION[ICD9: 401.9] Najma SAMSON NDER DO [facility] CPT-4: 31001 07/23/2011 ([id number]) OFFICE/OUTPATIENT VISIT EST Diagnosis: HYPERTENSION[ICD9: 401.9] Najma SAMSON NDER DO [facility] CPT-4: 06128 06/24/2011 OFFICE/OUTPATIENT VISIT EST Diagnosis: HYPERTENSION[ICD9: 401.9] Najma SAMSON NDER DO [facility] CPT-4: 97797 05/20/2011 OFFICE/OUTPATIENT VISIT EST Diagnosis: HYPERTENSION[ICD9: 401.9] Najma SAMSON NDER DO [facility] CPT-4: 26632 04/15/2011 OFFICE/OUTPATIENT VISIT EST Diagnosis: HYPERLIPIDEMIA NEC/NOS[ICD9: 272.4] Diagnosis: IMPAIRED FASTING GLUCOSE[ICD9: 790.21] Najma CLINTON CPT-4: 51419 03/18/2011 ([id number]) OFFICE/OUTPATIENT VISIT EST Najma OG DO [employer] CPT-4: 10520 07/30/2010 ([id number]) PREV VISIT, EST, AGE 40-64 Najma CLINTON CPT-4: 51989 04/24/2010 Plan of Care Planned Activity Notes Codes Status Date Visit Diagnosis Plan: Essential (primary) hypertension Discussion: Stable ICD-9 : 401.9 ICD-10 : I10 06/02/2019 Visit Diagnosis Plan: Gastro-esophageal reflux disease without esophagitis Discussion: Pepcid 20mg daily ICD-9 : 530.81 ICD-10 : K21.9 06/02/2019 Visit Diagnosis Plan: Type 2 diabetes mellitus with hy perglycemia Discussion: Lab discussed Accuchecks daily Continue current meds and work on lifestyle Check CMP and HbA1C in 3mos then fwup ICD-9 : 250.02 ICD-10 : E11.65 06/02/2019 Appointment: Najma Og WPtel: [address] [place] [address] [place] FOLLOW UP 06/02/2019 Appointment: Najma Og WPtel: [address] [place], [place] [phone] [place] LAB 05/24/2019 Visit Diagnosis Plan: Essential [...] : E78.2 01/31/2019 Appointment: Najma Og WPtel: [address] [place] [address] US FOLLOW UP 01/31/2019 Appointment: Najma Og WPtel: [address] [place] [address] US LAB 01/26/2019 Appointment: Najma Og WPtel: [address] [place], [place] [phone] [place] LAB 09/30/2018 Visit Diagnosis Plan: Essential [...] : N19 08/19/2018 Appointment: Najma Og WPtel: [address] [place] [address] US FOLLOW UP 08/19/2018 Appointment: Najma Og WPtel: [address] [place] [address] [place] LAB 08/16/2018 Visit Diagnosis Plan: Type [...] : 401.9 ICD-10 : I10 05/10/2018 Appointment: Njama Og WPtel: [address] [place] [address] US FOLLOW UP 05/10/2018 Patient Education: Low Back Pain Exercises: Illustration Completed 05/10/2018 Patient Education: Low Back Pain Exercises Completed 05/10/2018 Appointment: Najma Og WPtel: [address] [place], [place] [phone] [place] LAB 05/05/2018 Visit Diagnosis Plan: Type [...] : E78.2 01/19/2018 Appointment: Najma Og WPtel: [address] [place] [address] US FOLLOW UP 01/19/2018 Patient Education: Patient Medication Summary Completed 01/19/2018 Appointment: Najma Og WPtel: [address] [place], [place] [phone] [place] LAB 01/13/2018 Patient Education: Patient Medication [...] : 272.2 ICD-10 : E78.2 10/15/2017 Appointment: Najam Og WPtel: [address] [place], [place] [phone] [place] FOLLOW UP 10/15/2017 Patient Education: Patient Medication Summary Completed 10/15/2017 Appointment: Najma Og WPtel: [address] [place], [place] [phone] [place] LAB 10/06/2017 Patient Education: Patient Medication Summary Completed 10/06/2017 Visit Diagnosis Plan: Actinic keratosis Discussion: Cr yotherapy as above ICD-9 : 702.0 ICD-10 : L57.0 04/23/2017 Appointment: Najma Og WPtel: [address] [place], [place] [phone] OFFICE SURGERY 04/23/2017 Patient Education: Patient Medication [...] : E11.9 03/11/2017 Appointment: Najma Og WPtel: [address] [place], [place] [phone] FOLLOW UP 03/11/2017 Patient Education: Patient Medication Summary Completed 03/11/2017 Appointment: Najma Og WPtel: [address] [place], [place] [phone] LAB 03/05/2017 Patient Education: Patient Medication Summary [...] : E78.2 07/09/2016 Appointment: Najma Og WPtel: [address] [place], [place] [phone] [place] 07/08 lm ~sl 07/09 confirmed~sl FOLLOW UP 08/2016 Patient Education: Patient Medication Summary Completed 07/09/2016 Appointment: Najma Og WPtel: [address] [place], [place] [phone] [place] LAB 06/16/2016 Patient Education: Patient Medication Summary Completed 06/16/2016 Visit Plan: Lab discussed [facility]uchchrista [facility] Lifestyle change for 3mos then check CMP, HbA1C in 3mos Has had flu and pneumonia shot 03/10/2016 Appointment: Najma Og WPtel: [address] [place], [place] [phone] 03/06 confirmed `sl FOLLOW UP 03/10/2016 Patient Education: Patient Medication Summary Completed 03/10/2016 Appointment: Najma Og WPtel: [address] [place], [place] [phone] [place] LAB 03/06/2016 Patient Education: Patient Medication Summary Completed 03/06/2016 [phone] [place] Ref[facility] Completed 10/22/2015 Visit Plan: Tick bite area looks much be tter Continue current rxs and close monitoring Follow up if any new symptoms or worsening appearance 09/12/2015 Appointment: Barbara Brower [address] [place], [place] [phone] 09/10 confirmed~sl FOLLOW UP 09/12/2015 Patient Education: Patient Medication Summary Completed 09/12/2015 Visit Plan: Cover as above 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 topical steroids to calm down the inflammation(suspect most of redness is due to histamine response vs infection) Monitor closely Follow up in 2 days to recheck 09/10/2015 Appointment: Barbara Brower [address] [place], [place] [phone] 09/10/2015 Patient Education: [...] shingles vaccine 09/06/2015 Appointment: Barbara Brower [phone] [id number] FOLLOW UP 09/06/2015 Patient Education: Patient Medication Summary Completed 09/06/2015 Care Plan: Referral Order SNOMED-CT : [id number] Pending 09/06/2015 Appointment: Najma Og WPtel: [address] [place], [place] [phone] 08/31/2015 Patient Education: Patient Medication Summary Completed 08/31/2015 Visit Plan: Offered aggressive (KUB, IV fluids, Labs) vs. conservative (oral hydration, treat symptoms, watchful waiting). Elects for conservative + labs. CBC & CMP at [facility] [place] Discussed needed oral hydration (preferably with sports drinks), 24 hour clear liquid followed by BRAT diet and advance as tolerated Discussed s/s of worsening, go to UC/ER. 06/29/2015 Appointment: Henrietta Lubin WPtel: [address] [place], [place] [id number] 06/29/2015 Patient Education: Patient Medication Summary Completed 06/29/2015 Visit Plan: Lab discussed Will keep meds the same Discussed diet/exercise at length Cryotherapy as above to AKs of arms Flu and Prevnar 13 given Trial of revatio per patient request for ED--warned of no nitrates Recheck 4mos 01/17/2015 Appointment: Najma Og WPtel: [address] [place], [place] [phone] 01/16 confirmed~sl FOLLOW UP 01/17/2015 Patient Education: Patient Medication Summary Completed 01/17/2015 Appointment: Najma Og WPtel: [address] [place], [place] [phone] LAB 01/12/2015 Patient Education: Patient Medication Summary Completed 01/12/2015 Visit Plan: Lab discussed Start accuchec ks daily Cryotherapy as above 09/19/2014 Appointment: Najma Og WPtel: [address] [place] [address] 09/18 confirmed -mf FOLLOW UP 09/19/2014 Patient Education: Patient Medication Summary Completed 09/19/2014 Appointment: Najma Og WPtel: [address] [place] [address] [place] LAB 08/15/2014 Patient Education: Patient Medication Summary Completed 08/15/2014 Appointment: Najma Og WPtel: [address] [place] [address] ACUTE ILLNESS 12/14/2013 Patient Education: Patient Medication Summary Completed 12/14/2013 Visit Plan: Patient using tylenol prn pa in Discussed possible shingles shot for booster in 9-12mos 10/17/2013 Appointment: Najma Og WPtel: [address] [place] [address] FOLLOW UP 10/17/2013 Patient Education: Patient Medication Summary Completed 10/17/2013 Appointment: Jeanie Briceño WPtel: [address] [place] [address] ACUTE ILLNESS 09/23/2013 Patient Education: Patient Medication Summary Completed 09/23/2013 Appointment: Najma Og WPtel: [address] [place] [address] BP CHECK 07/22/2013 Patient Education: Patient Medication Summary Completed 07/22/2013 Visit Plan: Lab discussed Discussed swit arun amlodopine to beta slim to see if helps with tremor BP check in 1mo 06/20/2013 Appointment: Najma Og WPtel: [address] [place] [address] 06/17 no answer FOLLOW UP 06/20/2013 Patient Education: Patient Medication Summary Completed 06/20/2013 Appointment: Najma Og WPtel: [address] [place], [place] [id number] LAB 06/08/2013 Patient Education: Patient Medication Summary Completed 06/08/2013 Visit Plan: BRAT diet and yogurt and gat orade Lab discussed Continue current meds Spot checks on BS 11/25/2012 Appointment: Najma Og WPtel: [address] [place], [place] [id number] 11/24 FOLLOW UP 11/25/2012 Patient Education: Patient Medication Summary Completed 11/25/2012 Appointment: Najma Og WPtel: [address] [place], [place] [phone] LAB 11/11/2012 Patient Education: Patient Medication Summary Completed 11/11/2012 Appointment: Henrietta Lubin WPtel: [address] [place], [place] [phone] WORK IN 08/27/2012 Patient Education: Patient Medication Summary Completed 08/27/2012 Visit Plan: Pt going to get new home BP moniter Continue crestor and restart fish oil and will check fasting lab in 6mos Lab results discussed 05/11/2012 Appointment: Najma Og WPtel: [address] [place], [place] [id number] 05/10 FOLLOW UP 05/11/2012 Patient Education: Patient Medication Summary Completed 05/11/2012 Appointment: Najma Og WPtel: [address] [place], [place] [id number] LAB 05/04/2012 Patient Education: Patient Medication Summary Completed 05/04/2012 Visit Plan: 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 and forehead 03/02/2012 Appointment: Najma Og WPtel: [address] [place], [place] [id number] 03/01 OFFICE SURGERY 03/02/2012 Patient Education: Patient Medication Summary Completed 03/02/2012 Visit Plan: Labs discussed--recheck lab end of Feb/mar Continue current meds and continue to moniter BS daily and BP 1-2 times a week Plan on cryotherapy this fall so can wear longsleeves after procedure See urology 12/11/2011 Appointment: Najma Og WPtel: [address] [place], [place] [phone] [place] FOLLOW UP 12/11/2011 Patient Education: Patient Medication Summary Completed 12/11/2011 Appointment: Najma Og WPtel: [address] [place], [place] [phone] [place] LAB 10/29/2011 Patient Education: Patient Medication Summary Completed 10/29/2011 Appointment: Najma Og WPtel: [address] [place], [place] [phone] BP CHECK 08/14/2011 Patient Education: Patient Medication Summary Completed 08/14/2011 Appointment: Najma Og WPtel: [address] [place] [address] ACUTE ILLNESS 07/29/2011 Patient Education: Patient Medication Summary Completed 07/29/2011 Appointment: Najma Og WPtel: [address] [place] [address] BP CHECK 07/23/2011 Patient Education: Patient Medication Summary Completed 07/23/2011 Appointment: Najma Og WPtel: [address] [place], [place] [phone] [place] BP CHECK 06/24/2011 Patient Education: Patient Medication Summary Completed 06/24/2011 Appointment: Najma Og WPtel: [address] [place], [place] [phone] [place] BP CHECK 05/20/2011 Patient Education: Patient Medication Summary Completed 05/20/2011 Appointment: Najma Og WPtel: [address] [place], [place] [phone] BP CHECK 04/29/2011 Patient Education: Patient Medication Summary Completed 04/29/2011 Appointment: Najma Og WPtel: [address] [place], [place] [phone] [place] BP CHECK 04/15/2011 Patient Education: Patient Medication Summary Completed 04/15/2011 Visit Plan: Continue current meds Add fi sh oil 1gm daily Glucometer given to use for accuchecks prn 03/18/2011 Appointment: Najma Og WPtel: [address] [place], [place] [phone] [place] FOLLOW UP 03/18/2011 Patient Education: Patient Medication Summary Completed 03/18/2011 Appointment: Najma Og WPtel: [address] [place] [phone] [place] LAB 03/14/2011 Patient Education: Patient Medication Summary Completed 03/14/2011 Appointment: Najma Og WPtel: [address] [place], [place] [phone] [place] LAB 11/11/2010 Appointment: Najma Og WPtel: [address] [place], [place] [phone] [place] UA 11/11/2010 Patient Education: Patient Medication Summary Completed 11/11/2010 Appointment: Najma Og WPtel: [address] [place], [place] [phone] [place] LAB 10/29/2010 Patient Education: Patient Medication Summary Completed 10/29/2010 Appointment: Najma Og WPtel: [address] [place], [place] [phone] [place] FOLLOW UP 07/30/2010 Patient Education: Patient Medication Summary Completed 07/30/2010 Appointment: Najma Og WPtel: [address] [place], [place] [phone] [place] LAB 07/23/2010 Patient Education: Patient Medication Summary Completed 07/23/2010 [facility]ment[facility] [phone] [facility] [facility] 04/26/2010 Patient Education: Patient Medication Summary Completed 04/26/2010 Visit Plan: Add PSA to lab Restart Crest or at 10mg daily Trial of Wellbutrin to aid in smoking cessation Check Lipids and LFTs in 3mos 04/24/2010 Appointment: [facility]aj[facility] Og [facility]Ptel[facility] [phone] [facility] FOLLOW UP 04/24/2010 Patient Education: Patient Medication Summary Completed 04/24/2010 Appointment: [facility]aj[facility] Og [facility]el[facility] [phone] [facility] [facility] 04/19/2010 Patient Education: Patient Medication Summary Completed 04/19/2010 Referral: Donavon Keller WPtel: [address] [facility] [employer] [id number] [place] Referral Completed Instructions Comment . Lab [...] + labs. CBC & CMP at [facility] [place] Discussed needed oral hydration (preferably with sports [...]
--- OUTSIDE RECORDS SUMMARY | 2019-10-14 22:43 | XMS REPORT | CCD ---
Author Author Inocente Og D.O. 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 PP Unavailable CCM Unavailable Summary Purpose Interface Exchange Insurance Providers Payer name Policy type / Coverage type Covered green party ID Effective Begin Date Effective End Date [employer] MEDICARE Medicare Part B [id number] Unknown [facility] Medicare Part B [id number] Un known Family history Father Diagnosis Age At Onset Diabetes mellitus Type 2 Unknown Myocardial infarction Unknown Brother Diagnosis Age At Onset Diabetes mellitus Type 2 Unknown Mother Diagnosis Age At Onset Osteoarthritis Unknown Cerebrovascular disease Unknown Social History Social History Element Codes Description Effective Dates Tobacco history SNOMED CT: 975559715 Never smoker 12/21/2014 Marital status Unknown 07/30/2010 [...] Fill Instructions amlodipine 5 mg tablet RxNorm: 912852 TAKE 1 TABLET BY MOUTH ON CE DAILY 06/16/2019 09/13/2019 Active metformin ER 500 mg tablet,extended release 24 hr RxNorm: 86 0975 TAKE 1 TABLET BY MOUTH ONCE DAILY 06/10/2019 09/07/2019 Active propranolol ER 80 mg capsule,24 hr,extended release RxNorm: 059038 TAKE 1 CAPSULE BY MOUTH ONCE DAILY 06/10/2019 09/07/2019 Active Vitamin D3 25 mcg (1,000 unit) capsule RxNorm: 634650 1 Capsule(s) Oral two times a day 06/02/2019 No Stop Date Active turmeric 400 mg capsule RxNorm: 1 Capsule(s) Oral QD 06/02/2019 No Stop Date Active Fish Oil 120 mg-180 mg-500 mg capsule RxNorm: 2 Capsule(s) Ora l QD 06/02/2019 No Stop Date Active 16.2 mg-0.1037 mg-0.0194 mg tablet RxNorm: 0032951 1 Tablet(s) Oral four times a day as needed abdominal pain/diarrhea 06/02/2019 No Stop D ate Active fenofibrate micronized 134 mg capsule RxNorm: 023307 1 Capsule(s) Oral QD for triglycerides 04/14/2019 07/13/2019 Active amlodipine 5 mg tablet RxNorm: 692558 TAKE 1 TABLET BY MOUTH ON CE DAILY 03/22/2019 06/15/2019 Inactive metformin ER 500 mg tablet,extended release 24 hr RxNorm: 86 0975 TAKE 1 TABLET BY MOUTH ONCE DAILY 03/15/2019 06/09/2019 Inactive propranolol ER 80 mg capsule,24 hr,extended release RxNorm: 009564 TAKE 1 CAPSULE BY MOUTH ONCE DAILY 03/15/2019 06/09/2019 Inactive amlodipine 5 mg tablet RxNorm: 462174 1 Tablet(s) PO QD 12/27/2018 Inactive fenofibrate micronized 134 mg capsule RxNorm: 494491 TA KE 1 CAPSULE BY MOUTH ONCE DAILY FOR TRIGLYCERIDES 10/11/2018 04/13/2019 Inactive amlodipine 5 mg tablet RxNorm: 685887 1 Tablet(s) PO QD 09/30/2018 Inactive metformin ER 500 mg tablet,extended release 24 hr RxNorm: 86 0975 TAKE 1 TABLET BY MOUTH ONCE DAILY 09/21/2018 03/14/2019 Inactive propranolol ER 80 mg capsule,24 hr,extended release RxNorm: 938567 TAKE 1 CAPSULE BY MOUTH ONCE DAILY 09/21/2018 03/14/2019 Inactive amlodipine 5 mg tablet RxNorm: 499994 1 Tablet(s) PO QD 08/25/2018 Inactive amlodipine 5 mg tablet RxNorm: 746519 1 Tablet(s) PO QD 08/25/2018 Inactive lisinopril 40 mg tablet RxNorm: 043736 TAKE 1 TABLET BY MOUTH O NCE DAILY 07/21/2018 08/24/2018 Inactive fenofibrate micronized 134 mg capsule RxNorm: 589051 TA KE 1 CAPSULE BY MOUTH ONCE DAILY FOR TRIGLYCERIDES 07/12/2018 10/10/2018 Inactive propranolol ER 80 mg capsule,24 hr,extended release RxNorm: 378730 TAKE 1 CAPSULE BY MOUTH ONCE DAILY 06/21/2018 09/20/2018 Inactive lisinopril 40 mg tablet RxNorm: 432483 TAKE 1 TABLET BY MOUTH O NCE DAILY 04/26/2018 07/20/2018 Inactive metformin ER 500 mg tablet,extended release 24 hr RxNorm: 075602 1 Tablet(s) QD 03/31/2018 09/20/2018 Inactive lisinopril 40 mg tablet RxNorm: 559381 TAKE 1 TABLET BY MOUTH O NCE DAILY 01/28/2018 04/25/2018 Inactive Vitamin D3 5,000 unit tablet RxNorm: 170948 1 Tablet(s) PO QD 01/1908/18/2018 Inactive fenofibrate micronized 134 mg capsule RxNorm: 057006 1 Capsule(s) PO QD for triglycerides 01/19/2018 07/11/2018 Inactive metformin ER 500 mg tablet,extended release 24 hr RxNorm: 642584 1 Tablet(s) QD 12/31/2017 03/30/2018 Inactive metformin ER 500 mg tablet,extended release 24 hr RxNorm: 250965 Tablet(s) 12/30/2017 12/30/2017 Inactive propranolol ER 80 mg capsule,24 hr,extended release RxNorm: 576367 1 Capsule(s) PO QD 12/17/2017 06/14/2018 Inactive metformin ER 500 mg tablet,extended release 24 hr RxNorm: 86 0975 1 Tablet(s) PO QD DUE FOR LABS AND APPT 12/02/2017 12/30/2017 Inactive Crestor 10 mg tablet RxNorm: 908438 TAKE ONE TABLET BY MOUTH ON CE DAILY 11/01/2017 01/18/2018 Inactive lisinopril 40 mg tablet RxNorm: 948986 TAKE ONE TABLET BY MOUTH ONCE DAILY [...] ER 80 mg capsule,24 hr,extended release RxNorm: 959579 1 Capsule(s) PO QD DUE FOR APPT 09/08/2017 12/17/2017 Inactive Crestor 10 mg tablet RxNorm: 571003 1 Tablet(s) PO QD T CHELSI ONE TABLET BY MOUTH DAILY 03/11/2017 09/06/2017 Inactive propranolol ER 80 mg capsule,24 hr,extended release RxNorm: 401476 1 Capsule(s) PO QD TAKE ONE CAPSULE BY MOUTH DAILY - REPLACES AMLODOPINE 03/11/2017 09/08/2017 Inactive metformin ER 500 mg tablet,extended release 24 hr RxNorm: 86 0975 1 Tablet(s) PO QD 03/11/2017 09/08/2017 Inactive lisinopril 40 mg tablet RxNorm: 599378 1 Tablet(s) PO QD 03/11/2017 0 09/06/2017 Inactive lisinopril 40 mg tablet RxNorm: 385210 1 Tablet(s) PO QD 02/16/2017 1 05/11/2016 Inactive metformin ER 500 mg tablet,extended release 24 hr RxNorm: 86 0975 1 Tablet(s) PO QD Due for labs and follow up before further refills 02/16/2017 017 Inactive propranolol ER 80 mg capsule,24 hr,extended release RxNorm: 986794 Capsule(s) TAKE ONE CAPSULE BY MOUTH DAILY - REPLACES AMLODOPINE 11/19/20162016 Inactive lisinopril 40 mg tablet RxNorm: 648021 1 Tablet(s) PO QD 11/17/2016 1 04/18/2016 Inactive metformin ER 500 mg tablet,extended release 24 hr RxNorm: 86 0975 1 Tablet(s) PO QD 11/17/2016 02/16/2017 Inactive lisinopril 40 mg tablet RxNorm: 528096 1 Tablet(s) PO Q D TAKE ONE TABLET BY MOUTH DAILY 08/19/2016 11/17/2016 Inactive metformin ER 500 mg tablet,extended release 24 hr RxNorm: 86 0975 Tablet(s) TAKE ONE TABLET BY MOUTH DAILY 08/19/2016 11/16/2016 Inactive propranolol ER 80 mg capsule,24 hr,extended release RxNorm: 606841 Capsule(s) TAKE ONE CAPSULE BY MOUTH DAILY - REPLACES AMLODOPINE 08/19/20162016 Inactive Crestor 10 mg tablet RxNorm: 440519 TAKE ONE TABLET BY MOUTH DAILY 06/16/2016 03/10/2017 Inactive lisinopril 40 mg tablet RxNorm: 673581 1 Tablet(s) PO Q D TAKE ONE TABLET BY MOUTH DAILY 05/23/2016 08/18/2016 Inactive metformin ER 500 mg tablet,extended release 24 hr RxNorm: 86 0975 TAKE ONE TABLET BY MOUTH DAILY 05/23/2016 08/19/2016 Inactive propranolol ER 80 mg capsule,24 hr,extended release RxNorm: 029846 TAKE ONE CAPSULE BY MOUTH DAILY - REPLACES AMLODOPINE 05/23/2016 08/19/2016 [facility] Crestor 10 mg tablet RxNorm: 151840 TAKE ONE TABLET BY MOUTH DAILY 03/31/2016 06/15/2016 Inactive metformin ER 500 mg tablet,extended release 24 hr RxNorm: 86 0975 TAKE ONE TABLET BY MOUTH DAILY 02/19/2016 05/22/2016 Inactive propranolol ER 80 mg capsule,24 hr,extended release RxNorm: 415077 TAKE ONE CAPSULE BY MOUTH DAILY - REPLACES AMLODOPINE 11/23/2015 05/20/2016 [facility] metformin ER 500 mg tablet,extended release 24 hr RxNorm: 86 0975 TAKE ONE TABLET BY MOUTH DAILY 11/08/2015 02/05/2016 Inactive Bactroban Nasal 2 % ointment RxNorm: 983794 Apply topic ally to affected area twice daily 09/10/2015 03/09/2016 Inactive Vibramycin 100 mg capsule RxNorm: 086665 1 Capsule(s) PO BID 201509/23/2015 Inactive lisinopril 40 mg tablet RxNorm: 501462 1 Tablet(s) PO Q D TAKE ONE TABLET BY MOUTH DAILY 08/27/2015 02/22/2016 Inactive metformin ER 500 mg tablet,extended release 24 hr RxNorm: 86 0975 TAKE ONE TABLET BY MOUTH DAILY 08/06/2015 11/03/2015 Inactive Levsin/SL 0.125 mg sublingual tablet RxNorm: 0233432 1 T ablet(s) SL Q4H as needed for stomach cramps 06/29/2015 07/03/2015 Inactive lisinopril 40 mg tablet RxNorm: 367324 Tablet(s) TAKE ONE TABLE T BY MOUTH DAILY 06/07/2015 08/26/2015 Inactive propranolol ER 80 mg capsule,24 hr,extended release RxNorm: 254799 TAKE ONE CAPSULE BY MOUTH DAILY - REPLACES AMLODOPINE 05/30/2015 11/22/2015 [facility] metformin ER 500 mg tablet,extended release 24 hr RxNorm: 86 0975 1 Tablet(s) PO QD 05/10/2015 08/05/2015 Inactive Crestor 10 mg tablet RxNorm: 595673 TAKE ONE TABLET BY MOUTH DAILY 04/18/2015 10/14/2015 Inactive metformin ER 500 mg tablet,extended release 24 hr RxNorm: 86 0975 TAKE ONE TABLET BY MOUTH DAILY 02/07/2015 05/10/2015 Inactive sildenafil 20 mg tablet RxNorm: 308886 1 Tablet(s) PO QD 01/17/2015 1 04/17/2014 Inactive propranolol ER 80 mg capsule,24 hr,extended release RxNorm: 920851 1 Capsule(s) PO QD replaces amlodopine 11/28/2014 05/26/2015 Inactive [[facility] BIN:[id number], PCN: [id number], Group: [id number], ID# [id number], Process claim through VoluBill, for questions: . THIS IS NOT INSURANCE.] lisinopril 40 mg tablet RxNorm: 738741 TAKE ONE TABLET BY MOUTH DAILY 11/16/2014 06/07/2015 Inactive lisinopril 40 mg tablet RxNorm: 138143 1 Tablet(s) PO QD 08/21/2014 0 11/15/2014 Inactive [AttnRPh: Saving apply/adjudicate RxGRP: [id number] RxBIN:[id number] RxPCN: ID#:[id number]] lisinopril 40 mg tablet RxNorm: 670346 1 Tablet(s) PO Q D NEEDS SEEN FOR APPOINTMENT 07/14/2014 08/21/2014 Inactive [AttnRPh: Saving apply/adjudicate RxGRP:SG20 RxBIN:[id number] RxN: ID#:[id number]] Crestor 10 mg tablet RxNorm: 774342 TAKE ONE TABLET BY MOUTH 07/06/2014 01/01/2015 Inactive metformin ER 500 mg tablet,extended release 24 hr RxNorm: 86 0975 1 Tablet(s) QD TAKE ONE TABLET BY MOUTH ONCE A DAY 06/09/2014 12/05/2014 Inactive propranolol ER 80 mg capsule,24 hr,extended release RxNorm: 339868 1 Capsule(s) PO QD replaces amlodopine 06/05/2014 11/28/2014 Inactive [[facility] -- BIN:[id number], PCN: [id number], Group: [id number], ID# [id number], Process claim through VoluBill, for questions: . THIS IS NOT INSURANCE.] propranolol ER 80 mg capsule,24 hr,extended release RxNorm: 104470 1 Capsule(s) PO QD replaces amlodopine 03/07/2014 06/05/2014 Inactive [[facility] -- BIN:[id number], PCN: [id number], Group: [id number], ID# [id number], Process claim through VoluBill, for questions: . THIS IS NOT INSURANCE.] metformin ER 500 mg tablet,extended release 24 hr RxNorm: 86 0975 TAKE ONE TABLET BY MOUTH ONCE A DAY 12/15/2013 06/09/2014 Inactive propranolol ER 80 mg capsule,24 hr,extended release RxNorm: 334395 1 Capsule(s) PO QD replaces amlodopine 12/09/2013 03/07/2014 Inactive [[facility] -- BIN:[id number], PCN: [id number], Group: [id number], ID# [id number], Process claim through VoluBill, for questions: . THIS IS NOT INSURANCE.] acyclovir 800 mg tablet RxNorm: 126999 1 Tablet(s) PO QID 09/23/2013 09/29/2013 Inactive gabapentin 300 mg capsule RxNorm: 622398 1 Capsule(s) PO BID 201310/07/2013 Inactive metformin ER 500 mg tablet,extended release 24 hr RxNorm: 86 0975 1 Tablet(s) PO QD 09/19/2013 12/14/2013 Inactive propranolol ER 80 mg capsule,24 hr,extended release RxNorm: 003030 1 Capsule(s) PO QD replaces amlodopine 09/15/2013 12/09/2013 Inactive metformin ER 500 mg 24 hr tablet,extended release RxNorm: 86 0975 1 Tablet(s) PO QD 09/15/2013 09/18/2013 Inactive lisinopril 40 mg tablet RxNorm: 903854 1 Tablet(s) PO QD 07/19/2013 0 07/14/2014 Inactive Crestor 10 mg tablet RxNorm: 800379 Tablet(s) PO TAKE O NE TABLET BY MOUTH EVERY DAY 07/12/2013 07/05/2014 Inactive propranolol ER 80 mg capsule,24 hr,extended release RxNorm: 788631 1 Capsule(s) PO QD replaces amlodopine 06/20/2013 09/15/2013 Inactive triamcinolone acetonide 0.1 % topical ointment RxNorm: 51372 36 Application TOP BID 06/20/2013 06/26/2013 Inactive Crestor 10 mg tablet RxNorm: 339437 1 Tablet(s) PO QD 04/18/201310/2013 Inactive Viagra 100 mg tablet RxNorm: 863578 1 Tablet(s) PO as directed 01/0508/18/2018 Inactive TAKE ONE TABLET BY MOUTH DIRECTED Crestor 10 mg tablet RxNorm: 978402 1 Tablet(s) PO QD 01/17/201304/06 Inactive metformin ER 500 mg tablet,extended release 24 hr RxNorm: 86 0975 1 Tablet(s) PO QD TAKE ONE TABLET BY MOUTH EVERY DAY 12/23/2012 09/15/2013 Inactive triamcinolone acetonide 0.1 % topical ointment RxNorm: 02136 36 Application TOP BID 08/27/2012 09/02/2012 Inactive ketoconazole 2 % topical cream RxNorm: 710035 1 Application TOP QAM 08/27/2012 09/02/2012 Inactive lisinopril 40 mg tablet RxNorm: 682828 1 Tablet(s) PO QD 07/21/2012 0 07/15/2013 Inactive Crestor 10 mg tablet RxNorm: 448358 1 Tablet(s) PO QD 07/21/201210/04 Inactive amlodipine 10 mg tablet RxNorm: 540028 1 Tablet(s) PO QHS 07/21/2012 07/15/2013 Inactive metformin ER 500 mg tablet,extended release 24 hr RxNorm: 86 0977 Tablet(s) PO TAKE ONE TABLET BY MOUTH EVERY DAY 03/31/2012 12/22/2012 Inactive lisinopril 40 mg tablet RxNorm: 489801 1 Tablet(s) PO QD 07/29/2011 0 07/20/2012 Inactive amlodipine 10 mg tablet RxNorm: 188528 1 Tablet(s) PO QHS 07/29/2011 07/20/2012 Inactive amlodipine 10 mg Tab RxNorm: 725859 1 Tablet(s) PO QHS 07/29/2011 Inactive Viagra 100 mg tablet RxNorm: 072043 1 Tablet(s) PO as directed 07/0601/24/2013 Inactive TAKE ONE TABLET BY MOUTH DIRECTED Crestor 10 mg tablet RxNorm: 815554 1 Tablet(s) PO QD 07/29/201107/05 Inactive Norvasc 5 mg Tab RxNorm: 515645 1 Tablet(s) PO QD 07/16/2011 07/28/19 12 Inactive Norvasc 5 mg Tab RxNorm: 358489 1 Tablet(s) PO QD 06/26/2011 07/15/19 12 Inactive lisinopril 40 mg Tab RxNorm: 316977 1 Tablet(s) PO QD 05/13/201107/06 Inactive metformin ER 500 mg tablet,extended release 24 hr RxNorm: 86 0977 1 Tablet(s) PO QD 03/18/2011 07/28/2011 Inactive Crestor 10 mg Tab RxNorm: 504312 1 Tablet(s) PO QHS 01/27/20112011 Inactive metformin ER 500 mg 24 hr Tab RxNorm: 775093 1 Tablet(s) PO QD 11/0403/17/2011 Inactive Viagra 100 mg Tab RxNorm: 685575 Tablet(s) PO TAKE ON E TABLET BY MOUTH DIRECTED 08/26/2010 07/28/2011 Inactive metformin ER 500 mg 24 hr Tab RxNorm: 433168 1 Tablet(s) PO QD 07/0611/18/2010 Inactive Crestor 10 mg Tab RxNorm: 936256 1 Tablet(s) PO QHS 07/30/20102010 Inactive Crestor 10 mg Tab RxNorm: 994927 1 Tablet(s) PO QHS 05/20/20102010 Inactive Wellbutrin SR 150 mg Tab RxNorm: 104682 1 Tablet(s) PO QAM 04/24/19 11 07/22/2010 Inactive Multivitamin And Mineral tablet RxNorm: 1 Tablet(s) PO QD No Start Date Active FreeStyle Lite Strips RxNorm: 1 Unit Dose Miscel laneous AC & HS check blood sugar AC and HS No Start Date Active Co Q-10 200 mg capsule RxNorm: 551694 1 Capsule(s) PO QD No Start Date Active lancets RxNorm: 1 Milliliter(s) Miscellaneous AC & HS No Start Robert e Active Vitamin D3 4,000 unit capsule RxNorm: 3497080 1 Capsule(s) PO QD No Start Date 07/08/2016 Inactive Fish Oil 360 mg-1,200 mg capsule RxNorm: 246892 2 Capsule(s) PO QD No Start Date 01/30/2019 Inactive hydrocodone 5 mg-acetaminophen 325 mg tablet RxNorm: 403423 1 Tablet(s) PO Q4H as needed for severe pain No Start Date 12/30/2015 Inactive Xanax 0.25 mg tablet RxNorm: 662855 1/2 Tablet(s) PO PRN for se andrea stress No Start Date 07/08/2016 Inactive lisinopril 40 mg Tab RxNorm: 852850 1 Tablet(s) PO QD No Start Date 0 05/12/2011 Inactive Fish Oil 1,000 mg capsule RxNorm: 1 Capsule(s) PO QD No Start Date 09/18/2014 Inactive naproxen 500 mg Tab RxNorm: 582057 1 Tablet(s) PO BID No Start Date 0 07/28/2011 Inactive aspirin 81 mg tablet RxNorm: 061021 1 Tablet(s) PO QD No Start Date 0 05/09/2018 Inactive Crestor 10 mg Tab RxNorm: 434405 1 Tablet(s) PO QD No Start Date 07/06 Inactive Crestor 5 mg tablet RxNorm: 231954 1 Tablet(s) PO QD No Start Date Inactive Fish Oil Oral RxNorm: Oral No Start Date 09/18/2014 Inactive Viagra 100 mg Tab RxNorm: 291641 1 Tablet(s) PO as directed No Star [...] Code Item Item Code Result Date S ervice Location GLYCOSYLATED HEMOGLOBIN TEST 07625 Hgb A1c 74233-6 6.7 % 0 05/24/2019 Unknown COMPREHENSIVE METABOLIC 59474 AST 21 U/L 2019 Unknown COMPREHENSIVE METABOLIC 31218 ALT 26 U/L 2019 Unknown COMPREHENSIVE METABOLIC 88411 BUN 14 mg/dL 2019 Unknown COMPREHENSIVE METABOLIC 75037 ALBUMIN 4.4 g/dL 2019 Unknown COMPREHENSIVE METABOLIC 96135 CHLORIDE 102 mmol/L 05/24 Unknown COMPREHENSIVE METABOLIC 27190 Bili Total 0.4 mg/dL 05/24 Unknown COMPREHENSIVE METABOLIC 81261 ALK PHOS 55 U/L 2019 Unknown COMPREHENSIVE METABOLIC 16333 SODIUM 139 mmol/L 05/24 Unknown COMPREHENSIVE METABOLIC 49476 CREATININE 1.28 mg/dL 05/07 Unknown COMPREHENSIVE METABOLIC 15434 CALCIUM 9.7 mg/dL 2019 Unknown COMPREHENSIVE METABOLIC 51471 POTASSIUM 4.7 mmol/L 05/24 Unknown COMPREHENSIVE METABOLIC 72885 Total Protein 6.8 g/dL Unknown COMPREHENSIVE METABOLIC 20913 Glucose 130 mg/dL 2019 Unknown COMPREHENSIVE METABOLIC 00395 Bicarbonate 29 mmol/L 05/07 Unknown COMPREHENSIVE METABOLIC 63754 AGAP 8 mmol/L 2019 Unknown MEAN GLUC 1532890 Calc Mean Gluc 146 mg/dL 05/24/2019 Unkn own GFR CALC 1406518 GFR Afr Amr >60 mL/min 05/24/2019 Unknow n GFR CALC 4301812 GFR Non Afr Amr 56 mL/min 05/24/2019 Unk nown MEAN GLUC 5033330 Calc Mean Gluc 140 mg/dL 01/26/2019 Unkn own GLYCOSYLATED HEMOGLOBIN TEST 32137 Hgb A1c 66897-3 6.5 % 1 Unknown COMPREHENSIVE METABOLIC 84563 AST 17 U/L 2018 Unknown COMPREHENSIVE METABOLIC 73999 ALT 19 U/L 2018 Unknown COMPREHENSIVE METABOLIC 83309 BUN 19 mg/dL 2018 Unknown COMPREHENSIVE METABOLIC 09573 ALBUMIN 4.3 g/dL 2018 Unknown COMPREHENSIVE METABOLIC 56798 CHLORIDE 103 mmol/L 01/26 Unknown COMPREHENSIVE METABOLIC 46990 Bili Total 0.6 mg/dL 01/26 Unknown COMPREHENSIVE METABOLIC 69815 ALK PHOS 60 U/L 2018 Unknown COMPREHENSIVE METABOLIC 17234 SODIUM 140 mmol/L 01/26 Unknown COMPREHENSIVE METABOLIC 10846 CREATININE 1.21 mg/dL 01/05 Unknown COMPREHENSIVE METABOLIC 08054 CALCIUM 9.6 mg/dL 2018 Unknown COMPREHENSIVE METABOLIC 10625 POTASSIUM 4.5 mmol/L 01/26 Unknown COMPREHENSIVE METABOLIC 60457 Total Protein 6.7 g/dL Unknown COMPREHENSIVE METABOLIC 64591 Glucose 111 mg/dL 2018 Unknown COMPREHENSIVE METABOLIC 93215 Bicarbonate 28 mmol/L 01/05 Unknown COMPREHENSIVE METABOLIC 54609 AGAP 9 mmol/L 2018 Unknown COMPLETE BLOOD COUNT 3456322 WBC 10.7 10e9/L 019 Unknown COMPLETE BLOOD COUNT 7083650 RBC 4.38 10e12/L 2018 Unknown COMPLETE BLOOD COUNT 1601516 HEMOGLOBIN 13.7 g/dL 01/27/20 19 Unknown COMPLETE BLOOD COUNT 5550509 HEMATOCRIT 42.0 % 01/27/20 19 Unknown COMPLETE BLOOD COUNT 7609909 MCV 95.9 fL 9 Unknown COMPLETE BLOOD COUNT 3885782 MCH 31.3 pg 9 Unknown COMPLETE BLOOD COUNT 3785384 MCHC 32.6 g/dL 9 Unknown COMPLETE BLOOD COUNT 1293056 PLATELET COUNT 232 10e9/L Unknown COMPLETE BLOOD COUNT [id number] Mean Plt Volume 11.4 fL Unknown COMPLETE BLOOD COUNT 7842518 Neut Auto 68.7 % 9 Unknown COMPLETE BLOOD COUNT 9833611 Lymph Auto 21.2 % 01/27/20 19 Unknown COMPLETE BLOOD COUNT 0502799 [place] Auto 8.1 % 9 Unknown COMPLETE BLOOD COUNT 9491665 Eos Auto 1.8 % 9 Unknown COMPLETE BLOOD COUNT 3000860 RDW 14.1 % 9 Unknown COMPLETE BLOOD COUNT 5604573 Baso Auto 0.2 % 9 Unknown COMPLETE BLOOD COUNT [id number] Neutrophil Abs 7.35 10e9/L Unknown COMPLETE BLOOD COUNT 9839805 Lymphocyte Abs 2.27 10e9/L Unknown COMPLETE BLOOD COUNT [id number] Monocyte Abs 0.87 10e9/L 01/05 Unknown COMPLETE BLOOD COUNT [id number] Eosinophil Abs 0.19 10e9/L Unknown COMPLETE BLOOD COUNT [id number] RDW-SD 47.7 fL 9 Unknown COMPLETE BLOOD COUNT [id number] Basophil Abs 0.02 10e9/L 01/05 Unknown GFR CALC 8417769 GFR Non Afr Amr 59 mL/min 01/26/2019 Unk nown GFR CALC [id number] GFR Afr Amr >60 mL/min 01/26/2019 Unknow n LIPID GROUP 91499 Cholesterol 215 mg/dL 01/26/2019 Unkno wn LIP[facility] GROUP 91331 Triglyceride 221 mg/dL 01/26/2019 Unkn own [facility] 84879 HDL CHOLESTEROL 41 mg/dL 01/26/2019 U nknown L[facility] GROUP 76919 Chol/HDL Ratio 5.24 ratio 01/26/2019 U nknown L[facility] GROUP 42071 NON-HDL Chol 174 mg/dL 01/26/2019 Unkn own [facility] 71895 LDL Cholesterol 130 mg/dL 01/26/2019 [place] [address] Glucose 104 mg/dL 09/30 [place] [address] CREATININE 1.18 mg/dL [place] [address] BUN 19 mg/dL 09/30 [place] [address] SODIUM 139 mmol/L 09/05 [place] [address] POTASSIUM 4.1 mmol/L 09/05 [place] [address] CHLORIDE 105 mmol/L 09/05 [place] [address] Bicarbonate 26 mmol/L [place] [address] AGAP 8 mmol/L 09/30 [place] [address] CALCIUM 9.3 mg/dL 09/30 Unknown GFR CALC 4136966 GFR Afr Amr >60 mL/min 09/30/2018 Unknow n GFR CALC 3241272 GFR Non Afr Amr >60 mL/min 09/30/2018 Un known MICROALBUMIN URINE RANDOM 39160 U Microalbumin <2.0 mg/L 08/19/2018 Unknown MICROALBUMIN URINE RANDOM 37509 U Creatinine 66 mg/dL 0 08/19/2018 Unknown MICROALBUMIN URINE RANDOM 27315 ALB/CR Ratio <3.0 mg/gCR 08/19/2018 Unknown COMPREHENSIVE METABOLIC 69347 AST 21 U/L 2018 Unknown COMPREHENSIVE METABOLIC 73409 ALT 20 U/L 2018 Unknown COMPREHENSIVE METABOLIC 81711 BUN 31 mg/dL 2018 Unknown COMPREHENSIVE METABOLIC 25388 ALBUMIN 4.4 g/dL 2018 Unknown COMPREHENSIVE METABOLIC 87235 CHLORIDE 105 mmol/L 08/16 Unknown COMPREHENSIVE METABOLIC 41015 Bili Total 0.5 mg/dL 08/16 Unknown COMPREHENSIVE METABOLIC 82851 ALK PHOS 40 U/L 2018 Unknown COMPREHENSIVE METABOLIC 72190 SODIUM 140 mmol/L 08/16 Unknown COMPREHENSIVE METABOLIC 09598 CREATININE 1.45 mg/dL 08/04 Unknown COMPREHENSIVE METABOLIC 60831 CALCIUM 9.8 mg/dL 2018 Unknown COMPREHENSIVE METABOLIC 92876 POTASSIUM 5.1 mmol/L 08/16 Unknown COMPREHENSIVE METABOLIC 05011 Total Protein 6.9 g/dL Unknown COMPREHENSIVE METABOLIC 78742 Glucose 110 mg/dL 2018 Unknown COMPREHENSIVE METABOLIC 47900 Bicarbonate 25 mmol/L 08/04 Unknown COMPREHENSIVE METABOLIC 02888 AGAP 10 mmol/L 2018 Unknown GFR CALC 8172688 GFR Afr Amr 58 mL/min 08/16/2018 Unknown GFR CALC 8785561 GFR Non Afr Amr 48 mL/min 08/16/2018 Unk nown GLYCOSYLATED HEMOGLOBIN TEST 70354 Hgb A1c 88065-4 5.9 % 0 08/16/2018 Unknown L[facility] GROUP 56234 Cholesterol 226 mg/dL 08/16/2018 Unkno wn LIP[facility] GROUP 12334 Triglyceride 335 mg/dL 08/16/2018 Unkn own L[facility] GROUP 79127 HDL CHOLESTEROL 32 mg/dL 08/16/2018 U nknown LIP[facility] GROUP 08774 Chol/HDL Ratio 7.06 ratio 08/16/2018 U nknown [facility] GROUP 31436 NON-HDL Chol 194 mg/dL 08/16/2018 Unkn own [facility] 43926 LDL Cholesterol 127 mg/dL 08/16/2018 U nknown THYROID STIMULATING HORMONE 60899 TSH 2.475 uIU/mL 08/16/2018 Unknown COMPLETE BLOOD COUNT 7453630 WBC 7.5 10e9/L 08/17/19 19 Unknown COMPLETE BLOOD COUNT 3069802 RBC 4.09 10e12/L 2018 Unknown COMPLETE BLOOD COUNT 0467506 HEMOGLOBIN 12.9 g/dL 08/17/19 19 Unknown COMPLETE BLOOD COUNT 5461046 HEMATOCRIT 40.0 % 08/17/19 19 Unknown COMPLETE BLOOD COUNT [id number] MCV 97.8 fL 9 Unknown COMPLETE BLOOD COUNT 1377705 MCH 31.5 pg 9 Unknown COMPLETE BLOOD COUNT 0743850 MCHC 32.3 g/dL 9 Unknown COMPLETE BLOOD COUNT 8784877 PLATELET COUNT 258 10e9/L Unknown COMPLETE BLOOD COUNT 7669069 Mean Plt Volume 11.4 fL Unknown COMPLETE BLOOD COUNT 8235570 Neut Auto 62.9 % 9 Unknown COMPLETE BLOOD COUNT 7096831 Lymph Auto 27.3 % 08/17/19 19 Unknown COMPLETE BLOOD COUNT 6985769 [place] Auto 8.2 % 9 Unknown COMPLETE BLOOD COUNT 5106619 Eos Auto 1.5 % 9 Unknown COMPLETE BLOOD COUNT 7603916 RDW 13.3 % 9 Unknown COMPLETE BLOOD COUNT 1740798 Baso Auto 0.1 % 9 Unknown COMPLETE BLOOD COUNT 4531175 Neutrophil Abs 4.72 10e9/L Unknown COMPLETE BLOOD COUNT 1876332 Lymphocyte Abs 2.05 10e9/L Unknown COMPLETE BLOOD COUNT 4477375 Monocyte Abs 0.62 10e9/L 08/04 Unknown COMPLETE BLOOD COUNT [id number] Eosinophil Abs 0.11 10e9/L Unknown COMPLETE BLOOD COUNT [id number] Basophil Abs 0.01 10e9/L 08/04 Unknown COMPLETE BLOOD COUNT [id number] RDW-SD 46.7 fL 9 Unknown MEAN GLUC [id number] Calc Mean Gluc 123 mg/dL 08/16/2018 Unkn own L[facility] 82309 Cholesterol 212 mg/dL 05/05/2018 Unkno wn [facility] 59409 Triglyceride 271 mg/dL 05/05/2018 Unkn own [facility] 79653 HDL CHOLESTEROL 38 mg/dL 05/05/2018 U nknown L[facility] 96606 Chol/HDL Ratio 5.58 ratio 05/05/2018 U nknown [facility] 55756 NON-HDL Chol 174 mg/dL 05/05/2018 Unkn own [facility] 21754 LDL Cholesterol 120 mg/dL 05/05/2018 U nknown GFR CALC [id number] GFR Afr Amr 59 mL/min 05/05/2018 Unknown GFR CALC [id number] GFR Non Afr Amr 49 mL/min 05/05/2018 Unk nown GLYCOSYLATED HEMOGLOBIN TEST 12648 Hgb A1c 63454-0 6.0 % 0 05/05/2018 Unknown MEAN GLUC [id number] Calc Mean Gluc 126 mg/dL 05/05/2018 Unkn own COMPREHENSIVE METABOLIC 18228 AST 18 U/L 2018 Unknown COMPREHENSIVE METABOLIC 18579 ALT 23 U/L 2018 Unknown COMPREHENSIVE METABOLIC 85101 BUN 30 mg/dL 2018 Unknown COMPREHENSIVE METABOLIC 69903 ALBUMIN 4.3 g/dL 2018 Unknown COMPREHENSIVE METABOLIC 23002 CHLORIDE 106 mmol/L 05/05 Unknown COMPREHENSIVE METABOLIC 09626 Bili Total 0.4 mg/dL 05/05 Unknown COMPREHENSIVE METABOLIC 72310 ALK PHOS 39 U/L 2018 Unknown COMPREHENSIVE METABOLIC 71455 SODIUM 139 mmol/L 05/05 Unknown COMPREHENSIVE METABOLIC 15113 CREATININE 1.44 mg/dL 04/08 Unknown COMPREHENSIVE METABOLIC 49853 CALCIUM 9.6 mg/dL 2018 Unknown COMPREHENSIVE METABOLIC 80291 POTASSIUM 4.7 mmol/L 05/05 Unknown COMPREHENSIVE METABOLIC 16158 Total Protein 6.6 g/dL Unknown COMPREHENSIVE METABOLIC 44483 Glucose 112 mg/dL 2018 Unknown COMPREHENSIVE METABOLIC 35076 Bicarbonate 28 mmol/L 04/08 Unknown COMPREHENSIVE METABOLIC 74029 AGAP 5 mmol/L 2018 Unknown THYROID STIMULATING HORMONE 23793 TSH 3.725 uIU/mL 05/05/2018 Unknown COMPLETE BLOOD COUNT [id number] WBC 8.2 10e9/L 05/05/19 19 Unknown COMPLETE BLOOD COUNT [id number] RBC 4.02 10e12/L 2018 Unknown COMPLETE BLOOD COUNT [id number] HEMOGLOBIN 12.7 g/dL 05/05/19 19 Unknown COMPLETE BLOOD COUNT [id number] HEMATOCRIT 39.3 % 05/05/19 19 Unknown COMPLETE BLOOD COUNT [id number] MCV 97.8 fL 9 Unknown COMPLETE BLOOD COUNT 6995064 MCH 31.6 pg 9 Unknown COMPLETE BLOOD COUNT [id number] MCHC 32.3 g/dL 9 Unknown COMPLETE BLOOD COUNT [id number] PLATELET COUNT 213 10e9/L Unknown COMPLETE BLOOD COUNT 7137331 Mean Plt Volume 11.7 fL Unknown COMPLETE BLOOD COUNT [id number] Neut Auto 55.7 % 9 Unknown COMPLETE BLOOD COUNT [id number] Lymph Auto 33.2 % 05/05/19 19 Unknown COMPLETE BLOOD COUNT 6988000 Woodson Auto 8.5 % 9 Unknown COMPLETE BLOOD COUNT [id number] RDW 13.9 % 9 Unknown COMPLETE BLOOD COUNT 1075609 Eos Auto 2.4 % 9 Unknown COMPLETE BLOOD COUNT [id number] Baso Auto 0.2 % 9 Unknown COMPLETE BLOOD COUNT [id number] Neutrophil Abs 4.57 10e9/L Unknown COMPLETE BLOOD COUNT [id number] Lymphocyte Abs 2.72 10e9/L Unknown COMPLETE BLOOD COUNT [id number] Monocyte Abs 0.70 10e9/L 04/08 Unknown COMPLETE BLOOD COUNT [id number] Eosinophil Abs 0.20 10e9/L Unknown COMPLETE BLOOD COUNT 9062010 Basophil Abs 0.02 10e9/L 04/08 Unknown COMPLETE BLOOD COUNT [id number] RDW-SD 48.8 fL 9 Unknown MICROALBUMIN URINE RANDOM 14140 U Microalbumin 19.3 mg/L 01/19/2018 Unknown MICROALBUMIN URINE RANDOM 68032 U Creatinine 96 mg/dL 1 Unknown MICROALBUMIN URINE RANDOM 51834 ALB/CR Ratio 20.1 mg/gCR 01/19/2018 Unknown LIPID GROUP 31726 Cholesterol 173 mg/dL 01/13/2018 Unkno wn LIPID GROUP 98316 Triglyceride 386 mg/dL 01/13/2018 Unkn own LIPID GROUP 98807 HDL CHOLESTEROL 37 mg/dL 01/13/2018 U nknown LIPID GROUP 09516 Chol/HDL Ratio 4.68 ratio 01/13/2018 U nknown LIPID GROUP 27620 NON-HDL Chol 136 mg/dL 01/13/2018 Unkn own LIPID GROUP 61686 LDL Cholesterol 59 mg/dL 01/13/2018 U nknown COMPLETE BLOOD COUNT [id number] WBC TNP:Client Request 01/13/2018 Unknown COMPLETE BLOOD COUNT [id number] RBC TNP:Client Request 01/13/2018 Unknown COMPLETE BLOOD COUNT [id number] HEMOGLOBIN TNP:Client Request 01/13/2018 Unknown COMPLETE BLOOD COUNT [id number] HEMATOCRIT TNP:Client Request 01/13/2018 Unknown COMPLETE BLOOD COUNT [id number] MCV TNP:Client Request 01/13/2018 Unknown COMPLETE BLOOD COUNT [id number] MCH TNP:Client Request 01/13/2018 Unknown COMPLETE BLOOD COUNT 1158724 MCHC TNP:Client Request 01/13/2018 Unknown COMPLETE BLOOD COUNT [id number] PLATELET COUNT TNP:Client Req uest 01/13/2018 Unknown COMPLETE BLOOD COUNT 3624553 Mean Plt Volume TNP:Client Re quest 01/13/2018 Unknown COMPLETE BLOOD COUNT [id number] Neut Auto TNP:Client Request 01/13/2018 Unknown COMPLETE BLOOD COUNT [id number] Lymph Auto TNP:Client Request 01/13/2018 Unknown COMPLETE BLOOD COUNT [id number] Woodson Auto TNP:Client Request 01/13/2018 Unknown COMPLETE BLOOD COUNT [id number] RDW TNP:Client Request 01/13/2018 Unknown COMPLETE BLOOD COUNT [id number] Eos Auto TNP:Client Request 01/13/2018 Unknown COMPLETE BLOOD COUNT [id number] Baso Auto TNP:Client Request 01/13/2018 Unknown COMPLETE BLOOD COUNT [id number] Neutrophil Abs TNP:Client Req uest 01/13/2018 Unknown COMPLETE BLOOD COUNT [id number] Lymphocyte Abs TNP:Client Req uest 01/13/2018 Unknown COMPLETE BLOOD COUNT [id number] Monocyte Abs TNP:Client Reque st 01/13/2018 Unknown COMPLETE BLOOD COUNT [id number] Eosinophil Abs TNP:Client Req uest 01/13/2018 Unknown COMPLETE BLOOD COUNT [id number] Basophil Abs TNP:Client Reque st 01/13/2018 Unknown COMPLETE BLOOD COUNT [id number] RDW-SD TNP:Client Request 01/13/2018 Unknown GLYCOSYLATED HEMOGLOBIN TEST 55444 Hgb A1c 77240-9 6.2 % 1 Unknown THYROID STIMULATING HORMONE 23256 TSH 2.764 uIU/mL 01/13/2018 Unknown COMPREHENSIVE METABOLIC 22626 AST 19 U/L 2017 Unknown COMPREHENSIVE METABOLIC 09303 ALT 21 U/L 2017 Unknown COMPREHENSIVE METABOLIC 07047 BUN 16 mg/dL 2017 Unknown COMPREHENSIVE METABOLIC 89174 ALBUMIN 4.2 g/dL 2017 Unknown COMPREHENSIVE METABOLIC 06905 CHLORIDE 105 mmol/L 01/13 Unknown COMPREHENSIVE METABOLIC 61232 Bili Total 0.5 mg/dL 01/13 Unknown COMPREHENSIVE METABOLIC 75052 ALK PHOS 85 U/L 2017 Unknown COMPREHENSIVE METABOLIC 58180 SODIUM 139 mmol/L 01/13 Unknown COMPREHENSIVE METABOLIC 57332 CREATININE 1.07 mg/dL 01/04 Unknown COMPREHENSIVE METABOLIC 84825 CALCIUM 9.2 mg/dL 2017 Unknown COMPREHENSIVE METABOLIC 58358 POTASSIUM 4.4 mmol/L 01/13 Unknown COMPREHENSIVE METABOLIC 91777 Total Protein 7.7 g/dL Unknown COMPREHENSIVE METABOLIC 58391 Glucose 130 mg/dL 2017 Unknown COMPREHENSIVE METABOLIC 50608 Bicarbonate 27 mmol/L 01/04 Unknown COMPREHENSIVE METABOLIC 84909 AGAP 7 mmol/L 2017 Unknown PSA EQUIMOLAR JERSON 31174 PSA Total 1.16 ng/mL 8 Unknown MEAN GLUC Calc Mean Gluc 131 mg/dL 01/13/2018 Unkn own GFR CALC 5651147 GFR Non Afr Amr >60 mL/min 01/13/2018 Un known GFR CALC 8247610 GFR Afr Amr >60 mL/min 01/13/2018 Unknow n MEAN GLUC 0630840 Calc Mean Gluc 134 mg/dL 10/06/2017 Unkn own GFR CALC 7712879 GFR Non Afr Amr >60 mL/min 10/06/2017 Un known GFR CALC 1074339 GFR Afr Amr >60 mL/min 10/06/2017 Unknow n GLYCOSYLATED HEMOGLOBIN TEST 86384 Hgb A1c 10152-2 6.3 % 0 10/06/2017 Unknown VITAMIN B 12 75525 VITAMIN B12 1202 pg/mL 10/06/2017 Unk nown COMPLETE BLOOD COUNT 2559440 WBC 7.4 10e9/L 10/07/19 18 Unknown COMPLETE BLOOD COUNT [id number] RBC 4.24 10e12/L 2017 Unknown COMPLETE BLOOD COUNT 1309674 HEMOGLOBIN 13.5 g/dL 10/07/19 18 Unknown COMPLETE BLOOD COUNT 3738758 HEMATOCRIT 41.6 % 10/07/19 18 Unknown COMPLETE BLOOD COUNT 3571060 MCV 98.1 fL 8 Unknown COMPLETE BLOOD COUNT 0820009 MCH 31.8 pg 8 Unknown COMPLETE BLOOD COUNT 6556062 MCHC 32.5 g/dL 8 Unknown COMPLETE BLOOD COUNT [id number] PLATELET COUNT 223 10e9/L 06/2017 Unknown COMPLETE BLOOD COUNT 0551902 Mean Plt Volume 11.9 fL 06/2017 Unknown COMPLETE BLOOD COUNT 0957117 Neut Auto 58.0 % 8 Unknown COMPLETE BLOOD COUNT 6742361 Lymph Auto 29.7 % 10/07/19 18 Unknown COMPLETE BLOOD COUNT 1570379 Woodson Auto 8.3 % 8 Unknown COMPLETE BLOOD COUNT 8512180 RDW 14.0 % 8 Unknown COMPLETE BLOOD COUNT 6765354 Eos Auto 3.7 % 8 Unknown COMPLETE BLOOD COUNT 6195064 Baso Auto 0.3 % 8 Unknown COMPLETE BLOOD COUNT 6379828 Neutrophil Abs 4.29 10e9/L Unknown COMPLETE BLOOD COUNT [id number] Lymphocyte Abs 2.20 10e9/L Unknown COMPLETE BLOOD COUNT [id number] Monocyte Abs 0.61 10e9/L 06/2017 Unknown COMPLETE BLOOD COUNT 8200342 Eosinophil Abs 0.27 10e9/L Unknown COMPLETE BLOOD COUNT [id number] Basophil Abs 0.02 10e9/L 06/2017 Unknown COMPLETE BLOOD COUNT 3867117 RDW-SD 48.6 fL 8 Unknown LIPID GROUP 28132 Cholesterol 216 mg/dL 10/06/2017 Unkno wn LIPID GROUP 35599 Triglyceride 335 mg/dL 10/06/2017 Unkn own LIPID GROUP 11363 HDL CHOLESTEROL 33 mg/dL 10/06/2017 U nknown LIPID GROUP 77203 Chol/HDL Ratio 6.55 ratio 10/06/2017 U nknon LIPID GROUP 20750 NON-HDL Chol 183 mg/dL 10/06/2017 Unkn own LIPID GROUP 45571 LDL Cholesterol 116 mg/dL 10/06/2017 U nknown COMPREHENSIVE METABOLIC 98280 AST 15 U/L 2017 Unknown COMPREHENSIVE METABOLIC 76193 ALT 15 U/L 2017 Unknown COMPREHENSIVE METABOLIC 61292 BUN 21 mg/dL 2017 Unknown COMPREHENSIVE METABOLIC 43697 ALBUMIN 4.1 g/dL 2017 Unknown COMPREHENSIVE METABOLIC 43381 CHLORIDE 107 mmol/L 10/06 Unknown COMPREHENSIVE METABOLIC 37530 Bili Total 0.6 mg/dL 10/06 Unknown COMPREHENSIVE METABOLIC 56510 ALK PHOS 68 U/L 2017 Unknown COMPREHENSIVE METABOLIC 03274 SODIUM 140 mmol/L 10/06 Unknown COMPREHENSIVE METABOLIC 62902 CREATININE 1.12 mg/dL 06/2017 Unknown COMPREHENSIVE METABOLIC 93331 CALCIUM 9.7 mg/dL 2017 Unknown COMPREHENSIVE METABOLIC 18414 POTASSIUM 4.6 mmol/L 10/06 Unknown COMPREHENSIVE METABOLIC 84631 Total Protein 6.6 g/dL Unknown COMPREHENSIVE METABOLIC 89078 Glucose 114 mg/dL 2017 Unknown COMPREHENSIVE METABOLIC 39295 Bicarbonate 26 mmol/L 06/2017 Unknown COMPREHENSIVE METABOLIC 32714 AGAP 7 mmol/L 2017 Unknown GLYCOSYLATED HEMOGLOBIN TEST 53999 Hgb A1c 38305-3 6.1 % 1 05/05/2016 Unknown GFR CALC 6143697 GFR Non Afr Amr >60 mL/min 03/05/2017 Un known GFR CALC 8218507 GFR Afr Amr >60 mL/min 03/05/2017 Unknow n MEAN GLUC 7767219 Calc Mean Gluc 128 mg/dL 03/05/2017 Unkn own COMPREHENSIVE METABOLIC 78693 AST 18 U/L 2016 Unknown COMPREHENSIVE METABOLIC 43738 ALT 20 U/L 2016 Unknown COMPREHENSIVE METABOLIC 44930 BUN 15 mg/dL 2016 Unknown COMPREHENSIVE METABOLIC 38095 ALBUMIN 4.3 g/dL 2016 Unknown COMPREHENSIVE METABOLIC 48449 CHLORIDE 105 mmol/L 03/05 Unknown COMPREHENSIVE METABOLIC 66722 Bili Total 0.5 mg/dL 03/05 Unknown COMPREHENSIVE METABOLIC 93887 ALK PHOS 57 U/L 2016 Unknown COMPREHENSIVE METABOLIC 19025 SODIUM 141 mmol/L 03/05 Unknown COMPREHENSIVE METABOLIC 02227 CREATININE 1.07 mg/dL 02/06 Unknown COMPREHENSIVE METABOLIC 41566 CALCIUM 9.3 mg/dL 2016 Unknown COMPREHENSIVE METABOLIC 07744 POTASSIUM 4.8 mmol/L 03/05 Unknown COMPREHENSIVE METABOLIC 45878 Total Protein 6.2 g/dL Unknown COMPREHENSIVE METABOLIC 53100 Glucose 118 mg/dL 2016 Unknown COMPREHENSIVE METABOLIC 42285 Bicarbonate 29 mmol/L 02/06 Unknown COMPREHENSIVE METABOLIC 83239 AGAP 7 mmol/L 2016 Unknown FREE T4 71516 T4 Free 1.38 ng/dL 03/05/2017 Unknown COMPLETE BLOOD COUNT 4255263 WBC 8.4 10e9/L 03/05/20 17 Unknown COMPLETE BLOOD COUNT 3297174 RBC 4.11 10e12/L 2016 Unknown COMPLETE BLOOD COUNT 0819843 HEMOGLOBIN 12.8 g/dL 03/05/20 17 Unknown COMPLETE BLOOD COUNT 7570091 HEMATOCRIT 40.1 % 03/05/20 17 Unknown COMPLETE BLOOD COUNT 7685294 MCV 97.6 fL 7 Unknown COMPLETE BLOOD COUNT 1804765 MCH 31.1 pg 7 Unknown COMPLETE BLOOD COUNT 2467516 MCHC 31.9 g/dL 7 Unknown COMPLETE BLOOD COUNT 4261494 PLATELET COUNT 184 10e9/L Unknown COMPLETE BLOOD COUNT 5595845 Mean Plt Volume 11.3 fL Unknown COMPLETE BLOOD COUNT 6724126 Neut Auto 62.5 % 7 Unknown COMPLETE BLOOD COUNT 2295486 Lymph Auto 26.4 % 03/05/20 17 Unknown COMPLETE BLOOD COUNT 7967997 Woodson Auto 7.9 % 7 Unknown COMPLETE BLOOD COUNT 6330281 RDW 13.5 % 7 Unknown COMPLETE BLOOD COUNT 6452787 Eos Auto 3.0 % 7 Unknown COMPLETE BLOOD COUNT 8931244 Baso Auto 0.2 % 7 Unknown COMPLETE BLOOD COUNT 9691801 Neutrophil Abs 5.25 10e9/L Unknown COMPLETE BLOOD COUNT 1083499 Lymphocyte Abs 2.22 10e9/L Unknown COMPLETE BLOOD COUNT 9120096 Monocyte Abs 0.66 10e9/L 02/06 Unknown COMPLETE BLOOD COUNT 6100425 Eosinophil Abs 0.25 10e9/L Unknown COMPLETE BLOOD COUNT 4393323 RDW-SD 46.7 fL 7 Unknown COMPLETE BLOOD COUNT [id number] Basophil Abs 0.02 10e9/L 02/06 Unknown THYROID STIMULATING HORMONE 57452 TSH 2.330 uIU/mL 03/05/2017 Unknown LIPID GROUP 04116 Cholesterol 135 mg/dL 03/05/2017 Unkno wn LIPID GROUP 33196 Triglyceride 297 mg/dL 03/05/2017 Unkn own LIPID GROUP 30019 HDL CHOLESTEROL 34 mg/dL 03/05/2017 U nknown LIPID GROUP 34199 Chol/HDL Ratio 3.97 ratio 03/05/2017 U nknown LIPID GROUP 10870 NON-HDL Chol 101 mg/dL 03/05/2017 Unkn own LIPID GROUP 13238 LDL Cholesterol 42 mg/dL 03/05/2017 U nknown GLYCOSYLATED HEMOGLOBIN TEST 39478 Hgb A1c 92499-5 6.5 % 1 05/07/2015 Unknown GFR CALC 1700649 GFR Non Afr Amr 55 mL/min 03/06/2016 Unk nown GFR CALC 0075454 GFR Afr Amr >60 mL/min 03/06/2016 Unknow n COMPLETE BLOOD COUNT 2586928 WBC 8.5 10e9/L 03/06/20 16 Unknown COMPLETE BLOOD COUNT [id number] RBC 4.32 10e12/L 2015 Unknown COMPLETE BLOOD COUNT 0580011 HEMOGLOBIN 13.5 g/dL 03/06/20 16 Unknown COMPLETE BLOOD COUNT 3648076 HEMATOCRIT 41.3 % 03/06/20 16 Unknown COMPLETE BLOOD COUNT 1195266 MCV 95.6 fL 6 Unknown COMPLETE BLOOD COUNT 1497447 MCH 31.3 pg 6 Unknown COMPLETE BLOOD COUNT 9116485 MCHC 32.7 g/dL 6 Unknown COMPLETE BLOOD COUNT 2402463 PLATELET COUNT 191 10e9/L 04/2015 Unknown COMPLETE BLOOD COUNT 2787109 Mean Plt Volume 11.7 fL 04/2015 Unknown COMPLETE BLOOD COUNT 9006414 Neut Auto 64.2 % 6 Unknown COMPLETE BLOOD COUNT 5047149 Lymph Auto 25.9 % 12/01/20 16 Unknown COMPLETE BLOOD COUNT 5077091 [place]son Auto 7.8 % 6 Unknown COMPLETE BLOOD COUNT 2315080 RDW 13.4 % 6 Unknown COMPLETE BLOOD COUNT 8213316 Eos Auto 2.0 % 6 Unknown COMPLETE BLOOD COUNT 8347208 Baso Auto 0.1 % 6 Unknown COMPLETE BLOOD COUNT 0308257 Neutrophil Abs 5.46 10e9/L Unknown COMPLETE BLOOD COUNT [id number] Lymphocyte Abs 2.20 10e9/L Unknown COMPLETE BLOOD COUNT [id number] Monocyte Abs 0.66 10e9/L 04/2015 Unknown COMPLETE BLOOD COUNT 9724586 Eosinophil Abs 0.17 10e9/L Unknown COMPLETE BLOOD COUNT 8032703 RDW-SD 45.0 fL 6 Unknown COMPLETE BLOOD COUNT 6175961 Basophil Abs 0.01 10e9/L 04/2015 Unknown FREE T4 53081 T4 Free 1.34 ng/dL 03/06/2016 Unknown MEAN GLUC 2662392 Calc Mean Gluc 140 mg/dL 03/06/2016 Unkn own COMPREHENSIVE METABOLIC 70177 AST 15 U/L 2015 Unknown COMPREHENSIVE METABOLIC 53383 ALT 18 U/L 2015 Unknown COMPREHENSIVE METABOLIC 96755 BUN 21 mg/dL 2015 Unknown COMPREHENSIVE METABOLIC 91892 ALBUMIN 4.3 g/dL 2015 Unknown COMPREHENSIVE METABOLIC 90188 CHLORIDE 103 mmol/L 03/06 Unknown COMPREHENSIVE METABOLIC 04807 Bili Total 0.4 mg/dL 03/06 Unknown COMPREHENSIVE METABOLIC 77012 ALK PHOS 68 U/L 2015 Unknown COMPREHENSIVE METABOLIC 49561 SODIUM 140 mmol/L 03/06 Unknown COMPREHENSIVE METABOLIC 41100 CREATININE 1.31 mg/dL 04/2015 Unknown COMPREHENSIVE METABOLIC 59769 CALCIUM 9.4 mg/dL 2015 Unknown COMPREHENSIVE METABOLIC 51282 POTASSIUM 4.8 mmol/L 03/06 Unknown COMPREHENSIVE METABOLIC 17004 Total Protein 6.6 g/dL Unknown COMPREHENSIVE METABOLIC 31992 Glucose 142 mg/dL 2015 Unknown COMPREHENSIVE METABOLIC 64059 Bicarbonate 29 mmol/L 04/2015 Unknown COMPREHENSIVE METABOLIC 11830 AGAP 8 mmol/L 2015 Unknown THYROID STIMULATING HORMONE 83964 TSH 2.288 uIU/mL 03/06/2016 Unknown LIPID GROUP 27107 Cholesterol 154 mg/dL 03/06/2016 Unkno wn LIPID GROUP 15730 Triglyceride 266 mg/dL 03/06/2016 Unkn own LIPID GROUP 78606 HDL CHOLESTEROL 38 mg/dL 03/06/2016 U nknown LIPID GROUP 03380 Chol/HDL Ratio 4.05 ratio 03/06/2016 U nknown LIPID GROUP 72655 NON-HDL Chol 116 mg/dL 03/06/2016 Unkn own LIPID GROUP 58656 LDL Cholesterol 63 mg/dL 03/06/2016 U nknown MEAN GLUC 5753700 Mean Glucose 128 mg/dL 08/31/2015 Unknow n COMPLETE BLOOD COUNT 9847007 WBC 8.4 10e9/L 08/31/19 16 Unknown COMPLETE BLOOD COUNT 6905738 RBC 4.12 10e12/L 2015 Unknown COMPLETE BLOOD COUNT 1271302 HEMOGLOBIN 12.8 g/dL 08/31/19 16 Unknown COMPLETE BLOOD COUNT 7473212 HEMATOCRIT 39.6 % 08/31/19 16 Unknown COMPLETE BLOOD COUNT 4045878 MCV 96.1 fL 6 Unknown COMPLETE BLOOD COUNT 4262537 MCH 31.1 pg 6 Unknown COMPLETE BLOOD COUNT 3321537 MCHC 32.3 g/dL 6 Unknown COMPLETE BLOOD COUNT 6473870 PLATELET COUNT 184 10e9/L Unknown COMPLETE BLOOD COUNT 1502395 Mean Plt Volume 12.0 fL Unknown COMPLETE BLOOD COUNT 5055923 Neut Auto 59.8 % 6 Unknown COMPLETE BLOOD COUNT 4394009 Lymph Auto 27.9 % 08/31/19 16 Unknown COMPLETE BLOOD COUNT 0529447 [place]son Auto 9.1 % 6 Unknown COMPLETE BLOOD COUNT 6036925 RDW 13.6 % 6 Unknown COMPLETE BLOOD COUNT 8289208 Eos Auto 3.1 % 6 Unknown COMPLETE BLOOD COUNT 1140989 Baso Auto 0.1 % 6 Unknown COMPLETE BLOOD COUNT 7575160 Neutrophil Abs 5.02 10e9/L Unknown COMPLETE BLOOD COUNT 4387529 Lymphoctye Abs 2.34 10e9/L Unknown COMPLETE BLOOD COUNT 9535505 Monocyte Abs 0.76 10e9/L 08/05 Unknown COMPLETE BLOOD COUNT 2779752 Eosinophil Abs 0.26 10e9/L Unknown COMPLETE BLOOD COUNT 0446320 RDW-SD 46.3 fL 6 Unknown COMPLETE BLOOD COUNT [id number] Basophil Abs 0.01 10e9/L 08/05 Unknown GLYCOSYLATED HEMOGLOBIN TEST 42643 Hgb A1c 96220-2 6.1 % 0 08/31/2015 Unknown GFR CALC 1275936 GFR Non Afr Amr >60 mL/min 08/31/2015 Un known GFR CALC 4277835 GFR Afr Amr >60 mL/min 08/31/2015 Unknow n FREE T4 24670 T4 Free 1.21 ng/dL 08/31/2015 Unknown THYROID STIMULATING HORMONE 38338 TSH 2.988 uIU/mL 08/31/2015 Unknown COMPREHENSIVE METABOLIC 01815 AST 16 U/L 2015 Unknown COMPREHENSIVE METABOLIC 03670 ALT 19 U/L 2015 Unknown COMPREHENSIVE METABOLIC 91965 BUN 17 mg/dL 2015 Unknown COMPREHENSIVE METABOLIC 78501 ALBUMIN 4.3 g/dL 2015 Unknown COMPREHENSIVE METABOLIC 98991 CHLORIDE 107 mmol/L 08/30 Unknown COMPREHENSIVE METABOLIC 08788 Bili Total 0.4 mg/dL 08/30 Unknown COMPREHENSIVE METABOLIC 62312 ALK PHOS 66 U/L 2015 Unknown COMPREHENSIVE METABOLIC 45030 SODIUM 140 mmol/L 08/30 Unknown COMPREHENSIVE METABOLIC 02521 CREATININE 1.07 mg/dL 08/05 Unknown COMPREHENSIVE METABOLIC 82415 CALCIUM 9.5 mg/dL 2015 Unknown COMPREHENSIVE METABOLIC 34566 POTASSIUM 4.5 mmol/L 08/30 Unknown COMPREHENSIVE METABOLIC 67820 Total Protein 6.7 g/dL Unknown COMPREHENSIVE METABOLIC 06245 Glucose 122 mg/dL 2015 Unknown COMPREHENSIVE METABOLIC 72665 Bicarbonate 26 mmol/L 08/05 Unknown COMPREHENSIVE METABOLIC 02066 AGAP 7 mmol/L 2015 Unknown LIPID GROUP 41445 Cholesterol 171 mg/dL 08/31/2015 Unkno wn LIPID GROUP 09028 Triglyceride 428 mg/dL 08/31/2015 Unkn own LIPID GROUP 73590 HDL CHOLESTEROL 35 mg/dL 08/31/2015 U nknown LIPID GROUP 87233 Chol/HDL Ratio 4.89 ratio 08/31/2015 U nknown LIPID GROUP 63608 NON-HDL Chol 136 mg/dL 08/31/2015 Unkn own LIPID GROUP 75171 LDL Cholesterol 50 mg/dL 08/31/2015 U nknown PSA EQUIMOLAR JERSON 31962 PSA Total 0.47 ng/mL 6 Unknown GFR CALC 2887263 GFR AA >60 ML/MIN 01/12/2015 Unknown GFR CALC 2865718 GFR NON-AA >60 ML/MIN 01/12/2015 Unknown COMPREHENSIVE METABOLIC 76558 AST 18 U/L 2014 Unknown COMPREHENSIVE METABOLIC 03961 ALT 19 IU/L 2014 Unknown COMPREHENSIVE METABOLIC 80630 BUN 19 MG/DL 2014 Unknown COMPREHENSIVE METABOLIC 22780 ALBUMIN 4.7 GM/DL 2014 Unknown COMPREHENSIVE METABOLIC 72649 CHLORIDE 104 MMOL/L 01/12 Unknown COMPREHENSIVE METABOLIC 96262 BILI TOT 0.8 MG/DL 2014 Unknown COMPREHENSIVE METABOLIC 92154 ALK PHOS 58 U/L 2014 Unknown COMPREHENSIVE METABOLIC 57866 SODIUM 139 MMOL/L 01/12 Unknown COMPREHENSIVE METABOLIC 81275 CREATININE 1.09 MG/DL 12/2014 Unknown COMPREHENSIVE METABOLIC 03129 CALCIUM 9.6 MG/DL 2014 Unknown COMPREHENSIVE METABOLIC 25951 POTASSIUM 4.4 MMOL/L 01/12 Unknown COMPREHENSIVE METABOLIC 20250 PROT TOT 6.7 GM/DL 2014 Unknown COMPREHENSIVE METABOLIC 53552 Glucose 109 MG/DL 2014 Unknown COMPREHENSIVE METABOLIC 75313 BICARB 27 MMOL/L 2014 Unknown COMPREHENSIVE METABOLIC 07539 ANION GAP 8 MEQ/L 2014 Unknown LIPID GROUP 40600 HDL TEST 36 MG/DL 01/12/2015 Unknown LIPID GROUP 24415 TRIG 220 MG/DL 01/12/2015 Unknown LIPID GROUP 12502 TEST LDL 58 MG/DL 01/12/2015 Unknown LIPID GROUP 43876 CHOL 138 MG/DL 01/12/2015 Unknown LIPID GROUP 18462 RCHOL/HDL 3.83 RATIO 01/12/2015 Unknow n LIPID GROUP 59978 NON-HDL CH 102 MG/DL 01/12/2015 Unknow n GLYCOSYLATED HEMOGLOBIN TEST 81455 A1C HPLC 84831-1 6.1 % 1 Unknown COMPLETE BLOOD COUNT 6269124 WBC 7.1 10e9/L 01/13/20 15 Unknown COMPLETE BLOOD COUNT 7260392 RBC 4.38 10e12/L 2014 Unknown COMPLETE BLOOD COUNT 5204718 HGB 13.7 g/dL 5 Unknown COMPLETE BLOOD COUNT 5189172 HCT DET 41.3 % 5 Unknown COMPLETE BLOOD COUNT 4221744 MCV 94.3 fL 5 Unknown COMPLETE BLOOD COUNT 5821430 MCH 31.3 pg 5 Unknown COMPLETE BLOOD COUNT 5833078 MCHC 33.2 g/dL 5 Unknown COMPLETE BLOOD COUNT 0143216 PLT 174 10e9/L 01/13/20 15 Unknown COMPLETE BLOOD COUNT 2524281 MPV 11.8 fL 5 Unknown COMPLETE BLOOD COUNT 6624440 SAMIR % 61.3 % 5 Unknown COMPLETE BLOOD COUNT 7507025 LY % 28.3 % 5 Unknown COMPLETE BLOOD COUNT 7132088 MON % 7.6 % 5 Unknown COMPLETE BLOOD COUNT 8992284 EOS % 2.7 % 5 Unknown COMPLETE BLOOD COUNT 1944071 BASO % 0.1 % 5 Unknown COMPLETE BLOOD COUNT 7920875 RDW 13.1 % 5 Unknown COMPLETE BLOOD COUNT 8010594 ABS SAMIR 4.35 10e9/L 015 Unknown COMPLETE BLOOD COUNT 5280332 ABS LYMPH 2.01 10e9/L 015 Unknown COMPLETE BLOOD COUNT 3651871 ABS MONO 0.54 10e9/L 015 Unknown COMPLETE BLOOD COUNT 6601274 ABS EOS 0.19 10e9/L 015 Unknown COMPLETE BLOOD COUNT 7910219 ABS BASO 0.01 10e9/L 015 Unknown COMPLETE BLOOD COUNT 8584167 RDW-SD 43.9 fL 5 Unknown GLYCOSYLATED HEMOGLOBIN TEST 67333 A1C HPLC 46569-4 6.1 % 0 08/15/2014 Unknown COMPLETE BLOOD COUNT 8317936 WBC 9.7 10e9/L 08/16/19 15 Unknown COMPLETE BLOOD COUNT 1579397 RBC 4.29 10e12/L 2014 Unknown COMPLETE BLOOD COUNT 3343375 HGB 13.3 g/dL 5 Unknown COMPLETE BLOOD COUNT 8125516 HCT DET 40.5 % 5 Unknown COMPLETE BLOOD COUNT 3503191 MCV 94.4 fL 5 Unknown COMPLETE BLOOD COUNT 3179775 MCH 31.0 pg 5 Unknown COMPLETE BLOOD COUNT 4060900 MCHC 32.8 g/dL 5 Unknown COMPLETE BLOOD COUNT 7014308 PLT 227 10e9/L 08/16/19 15 Unknown COMPLETE BLOOD COUNT 0702552 MPV 11.0 fL 5 Unknown COMPLETE BLOOD COUNT 3220834 SAMIR % 66.4 % 5 Unknown COMPLETE BLOOD COUNT 3223373 LY % 23.7 % 5 Unknown COMPLETE BLOOD COUNT 2177976 MON % 8.1 % 5 Unknown COMPLETE BLOOD COUNT 1119946 EOS % 1.6 % 5 Unknown COMPLETE BLOOD COUNT 2127943 BASO % 0.2 % 5 Unknown COMPLETE BLOOD COUNT 5052642 RDW 13.4 % 5 Unknown COMPLETE BLOOD COUNT [id number] ABS SAMIR 6.44 10e9/L 015 Unknown COMPLETE BLOOD COUNT 5754083 ABS LYMPH 2.30 10e9/L 015 Unknown COMPLETE BLOOD COUNT 1378903 ABS MONO 0.79 10e9/L 015 Unknown COMPLETE BLOOD COUNT 3957020 ABS EOS 0.16 10e9/L 015 Unknown COMPLETE BLOOD COUNT 1511055 ABS BASO 0.02 10e9/L 015 Unknown COMPLETE BLOOD COUNT 7218402 RDW-SD 44.7 fL 5 Unknown COMPREHENSIVE METABOLIC 70628 AST 17 U/L 2014 Unknown COMPREHENSIVE METABOLIC 31572 ALT 23 IU/L 2014 Unknown COMPREHENSIVE METABOLIC 67455 BUN 16 MG/DL 2014 Unknown COMPREHENSIVE METABOLIC 39040 ALBUMIN 4.3 GM/DL 2014 Unknown COMPREHENSIVE METABOLIC 73740 CHLORIDE 107 MMOL/L 08/15 Unknown COMPREHENSIVE METABOLIC 21862 BILI TOT 0.4 MG/DL 2014 Unknown COMPREHENSIVE METABOLIC 51262 ALK PHOS 91 U/L 2014 Unknown COMPREHENSIVE METABOLIC 34843 SODIUM 139 MMOL/L 08/15 Unknown COMPREHENSIVE METABOLIC 28905 CREATININE 1.07 MG/DL 08/04 Unknown COMPREHENSIVE METABOLIC 37824 CALCIUM 9.6 MG/DL 2014 Unknown COMPREHENSIVE METABOLIC 25897 POTASSIUM 4.6 MMOL/L 08/15 Unknown COMPREHENSIVE METABOLIC 41542 PROT TOT 6.7 GM/DL 2014 Unknown COMPREHENSIVE METABOLIC 99644 Glucose 111 MG/DL 2014 Unknown COMPREHENSIVE METABOLIC 28936 BICARB 27 MMOL/L 2014 Unknown COMPREHENSIVE METABOLIC 24173 ANION GAP 5 MEQ/L 2014 Unknown GFR CALC [id number] GFR AA >60 ML/MIN 08/15/2014 Unknown GFR CALC [id number] GFR NON-AA >60 ML/MIN 08/15/2014 Unknown THYROID STIMULATING HORMONE 43917 TSH 1.598 uIU/ML 08/15/2014 Unknown LIPID GROUP 66776 HDL TEST 33 MG/DL 08/15/2014 Unknown LIPID GROUP 25496 TRIG 187 MG/DL 08/15/2014 Unknown LIPID GROUP 86518 TEST LDL 58 MG/DL 08/15/2014 Unknown LIPID GROUP 31550 CHOL 128 MG/DL 08/15/2014 Unknown LIPID GROUP 81303 RCHOL/HDL 3.88 RATIO 08/15/2014 Unknow n LIPID GROUP 89558 NON-HDL CH 95 MG/DL 08/15/2014 Unknow n PSA EQUIMOLAR JERSON 29798 PSA EQ 0.70 NG/ML 5 Unknown FREE T4 66863 FREE T4 1.32 NG/DL 08/15/2014 Unknown GFR CALC 2331671 GFR AA >60 ML/MIN 12/14/2013 Unknown GFR CALC [id number] GFR NON-AA 58.0L ML/MIN 12/14/2013 Unkno wn COMPLETE BLOOD COUNT 9503485 WBC 8.7 10e9/L 12/15/19 14 Unknown COMPLETE BLOOD COUNT [id number] RBC 4.32 10e12/L 2013 Unknown COMPLETE BLOOD COUNT 5159778 HGB 13.5 g/dL 4 Unknown COMPLETE BLOOD COUNT 5274844 HCT DET 40.6 % 4 Unknown COMPLETE BLOOD COUNT 2411091 MCV 94.0 fL 4 Unknown COMPLETE BLOOD COUNT 7403708 MCH 31.3 pg 4 Unknown COMPLETE BLOOD COUNT 1201891 MCHC 33.3 g/dL 4 Unknown COMPLETE BLOOD COUNT 8106109 PLT 205 10e9/L 09/10/20 14 Unknown COMPLETE BLOOD COUNT 2399095 MPV 11.7 fL 4 Unknown COMPLETE BLOOD COUNT 6866808 SAMIR % 62.5 % 4 Unknown COMPLETE BLOOD COUNT 2916092 LY % 26.9 % 4 Unknown COMPLETE BLOOD COUNT 0386253 MON % 8.8 % 4 Unknown COMPLETE BLOOD COUNT 5767420 EOS % 1.7 % 4 Unknown COMPLETE BLOOD COUNT 6098599 BASO % 0.1 % 4 Unknown COMPLETE BLOOD COUNT 9880377 RDW 13.4 % 4 Unknown COMPLETE BLOOD COUNT 9174331 ABS SAMIR 5.44 10e9/L 014 Unknown COMPLETE BLOOD COUNT 9634657 ABS LYMPH 2.34 10e9/L 014 Unknown COMPLETE BLOOD COUNT 0732273 ABS MONO 0.77 10e9/L 014 Unknown COMPLETE BLOOD COUNT [id number] ABS EOS 0.15 10e9/L 014 Unknown COMPLETE BLOOD COUNT [id number] ABS BASO 0.01 10e9/L 014 Unknown COMPLETE BLOOD COUNT [id number] RDW-SD 44.7 fL 4 Unknown COMPREHENSIVE METABOLIC 58932 AST 14 U/L 2013 Unknown COMPREHENSIVE METABOLIC 93042 ALT 12 IU/L 2013 Unknown COMPREHENSIVE METABOLIC 40901 BUN 24 MG/DL 2013 Unknown COMPREHENSIVE METABOLIC 36558 ALBUMIN 4.5 GM/DL 2013 Unknown COMPREHENSIVE METABOLIC 03877 CHLORIDE 104 MMOL/L 12/14 Unknown COMPREHENSIVE METABOLIC 73888 BILI TOT 0.6 MG/DL 2013 Unknown COMPREHENSIVE METABOLIC 20909 ALK PHOS 82 U/L 2013 Unknown COMPREHENSIVE METABOLIC 41762 SODIUM 135 MMOL/L 12/14 Unknown COMPREHENSIVE METABOLIC 29418 CREATININE 1.25 MG/DL 12/05 Unknown COMPREHENSIVE METABOLIC 79577 CALCIUM 9.8 MG/DL 2013 Unknown COMPREHENSIVE METABOLIC 16246 POTASSIUM 4.7 MMOL/L 12/14 Unknown COMPREHENSIVE METABOLIC 91599 PROT TOT 6.7 GM/DL 2013 Unknown COMPREHENSIVE METABOLIC 57872 Glucose 126 MG/DL 2013 Unknown COMPREHENSIVE METABOLIC 63276 BICARB 27 MMOL/L 2013 Unknown COMPREHENSIVE METABOLIC 00377 ANION GAP 4 MEQ/L 2013 Unknown THYROID STIMULATING HORMONE 39496 TSH 3.281 uIU/ML 12/14/2013 Unknown FREE T4 49681 FREE T4 1.28 NG/DL 12/14/2013 Unknown LIPID GROUP 24866 HDL TEST 36 MG/DL 12/14/2013 Unknown LIPID GROUP 67208 TRIG 253 MG/DL 12/14/2013 Unknown LIPID GROUP 49978 TEST LDL 56 MG/DL 12/14/2013 Unknown LIPID GROUP 15825 CHOL 143 MG/DL 12/14/2013 Unknown LIPID GROUP 86749 RCHOL/HDL 3.97 RATIO 12/14/2013 Unknow n LIPID GROUP 87272 NON-HDL CH 107 MG/DL 12/14/2013 Unknow n GLYCOSYLATED HEMOGLOBIN TEST 06332 A1C HPLC 40509-8 6.1 % 0 12/14/2013 Unknown GLYCOSYLATED HEMOGLOBIN TEST 24916 A1C HPLC 89870-5 6.0 % 0 06/08/2013 Unknown LIPID GROUP 52699 HDL TEST 39 MG/DL 06/08/2013 Unknown LIPID GROUP 16967 TRIG 166 MG/DL 06/08/2013 Unknown LIPID GROUP 85067 TEST LDL 86 MG/DL 06/08/2013 Unknown LIPID GROUP 04907 CHOL 158 MG/DL 06/08/2013 Unknown LIPID GROUP 37809 RCHOL/HDL 4.05 RATIO 06/08/2013 Unknow n COMPREHENSIVE METABOLIC 36316 AST 17 U/L 2013 Unknown COMPREHENSIVE METABOLIC 25435 ALT 25 IU/L 2013 Unknown COMPREHENSIVE METABOLIC 86223 BUN 18 MG/DL 2013 Unknown COMPREHENSIVE METABOLIC 87214 ALBUMIN 4.5 GM/DL 2013 Unknown COMPREHENSIVE METABOLIC 82847 CHLORIDE 103 MMOL/L 06/08 Unknown COMPREHENSIVE METABOLIC 45166 BILI TOT 0.4 MG/DL 2013 Unknown COMPREHENSIVE METABOLIC 50945 ALK PHOS 72 U/L 2013 Unknown COMPREHENSIVE METABOLIC 11095 SODIUM 137 MMOL/L 06/08 Unknown COMPREHENSIVE METABOLIC 99523 CREATININE 1.07 MG/DL 08/2013 Unknown COMPREHENSIVE METABOLIC 08545 CALCIUM 9.7 MG/DL 2013 Unknown COMPREHENSIVE METABOLIC 70832 POTASSIUM 4.7 MMOL/L 06/08 Unknown COMPREHENSIVE METABOLIC 87040 PROT TOT 6.6 GM/DL 2013 Unknown COMPREHENSIVE METABOLIC 45883 Glucose 130 MG/DL 2013 Unknown COMPREHENSIVE METABOLIC 28742 BICARB 25 MMOL/L 2013 Unknown COMPREHENSIVE METABOLIC 17377 ANION GAP 9 MEQ/L 2013 Unknown FREE T4 27844 FREE T4 1.29 NG/DL 06/08/2013 Unknown THYROID STIMULATING HORMONE 29683 TSH 2.445 uIU/ML 06/08/2013 Unknown GFR CALC GFR AA >60 ML/MIN 06/08/2013 Unknown GFR CALC 0311589 GFR NON-AA >60 ML/MIN 06/08/2013 Unknown COMPLETE BLOOD COUNT [id number] WBC 8.2 10e9/L 06/09/19 14 Unknown COMPLETE BLOOD COUNT [id number] RBC 4.63 10e12/L 2013 Unknown COMPLETE BLOOD COUNT 4505376 HGB 14.1 g/dL 4 Unknown COMPLETE BLOOD COUNT [id number] HCT DET 42.6 % 4 Unknown COMPLETE BLOOD COUNT [id number] MCV 92.0 fL 4 Unknown COMPLETE BLOOD COUNT 7684039 MCH 30.5 pg 4 Unknown COMPLETE BLOOD COUNT 8892276 MCHC 33.1 g/dL 4 Unknown COMPLETE BLOOD COUNT [id number] PLT 222 10e9/L 06/09/19 14 Unknown COMPLETE BLOOD COUNT 0578489 MPV 10.8 fL 4 Unknown COMPLETE BLOOD COUNT 2928187 SAMIR % 60.8 % 4 Unknown COMPLETE BLOOD COUNT [id number] LY % 29.2 % 4 Unknown COMPLETE BLOOD COUNT 1158202 MON % 7.6 % 4 Unknown COMPLETE BLOOD COUNT 8091021 EOS % 2.3 % 4 Unknown COMPLETE BLOOD COUNT [id number] BASO % 0.1 % 4 Unknown COMPLETE BLOOD COUNT [id number] RDW 13.7 % 4 Unknown COMPLETE BLOOD COUNT [id number] ABS SAMIR 4.99 10e9/L 014 Unknown COMPLETE BLOOD COUNT [id number] ABS LYMPH 2.39 10e9/L 014 Unknown COMPLETE BLOOD COUNT [id number] ABS MONO 0.62 10e9/L 014 Unknown COMPLETE BLOOD COUNT [id number] ABS EOS 0.19 10e9/L 014 Unknown COMPLETE BLOOD COUNT [id number] ABS BASO 0.01 10e9/L 014 Unknown COMPLETE BLOOD COUNT [id number] RDW-SD 45.2 fL 4 Unknown LIPID GROUP 74669 HDL TEST 40 MG/DL 11/11/2012 Unknown LIPID GROUP 48054 TRIG 153 MG/DL 11/11/2012 Unknown LIPID GROUP 57877 TEST LDL 71 MG/DL 11/11/2012 Unknown LIPID GROUP 27914 CHOL 142 MG/DL 11/11/2012 Unknown LIPID GROUP 66182 RCHOL/HDL 3.55 RATIO 11/11/2012 Unknow n GFR CALC 4413761 GFR AA >60 ML/MIN 11/11/2012 Unknown GFR CALC 3148408 GFR NON-AA 57.0L ML/MIN 11/11/2012 Unkno wn HEMOGLOBIN A1C (GLYCOSYLATED) 7675036 A1C HPLC 71304-5 5.9 % 11/11/2012 Unknown THYROID STIMULATING HORMONE 74794 TSH 2.439 uIU/ML 11/11/2012 Unknown COMPLETE BLOOD COUNT [id number] WBC 8.5 10e9/L 11/12/19 13 Unknown COMPLETE BLOOD COUNT [id number] RBC 4.42 10e12/L 2012 Unknown COMPLETE BLOOD COUNT [id number] HGB 13.7 g/dL 3 Unknown COMPLETE BLOOD COUNT [id number] HCT DET 41.3 % 3 Unknown COMPLETE BLOOD COUNT 9273571 MCV 93.4 fL 3 Unknown COMPLETE BLOOD COUNT [id number] MCH 31.0 pg 3 Unknown COMPLETE BLOOD COUNT 8185474 MCHC 33.2 g/dL 3 Unknown COMPLETE BLOOD COUNT [id number] PLT 220 10e9/L 11/12/19 13 Unknown COMPLETE BLOOD COUNT [id number] MPV 10.8 fL 3 Unknown COMPLETE BLOOD COUNT [id number] SAMIR % 60.4 % 3 Unknown COMPLETE BLOOD COUNT 1580939 LY % 28.7 % 3 Unknown COMPLETE BLOOD COUNT [id number] MON % 8.0 % 3 Unknown COMPLETE BLOOD COUNT [id number] EOS % 2.8 % 3 Unknown COMPLETE BLOOD COUNT [id number] BASO % 0.1 % 3 Unknown COMPLETE BLOOD COUNT [id number] RDW 13.7 % 3 Unknown COMPLETE BLOOD COUNT [id number] ABS SAMIR 5.13 10e9/L 013 Unknown COMPLETE BLOOD COUNT [id number] ABS LYMPH 2.44 10e9/L 013 Unknown COMPLETE BLOOD COUNT [id number] ABS MONO 0.68 10e9/L 013 Unknown COMPLETE BLOOD COUNT [id number] ABS EOS 0.24 10e9/L 013 Unknown COMPLETE BLOOD COUNT [id number] ABS BASO 0.01 10e9/L 013 Unknown COMPLETE BLOOD COUNT [id number] RDW-SD 45.6 fL 3 Unknown COMPREHENSIVE METABOLIC 45924 AST 19 U/L 2012 Unknown COMPREHENSIVE METABOLIC 48010 ALT 28 IU/L 2012 Unknown COMPREHENSIVE METABOLIC 87350 BUN 31 MG/DL 2012 Unknown COMPREHENSIVE METABOLIC 11451 ALBUMIN 4.7 GM/DL 2012 Unknown COMPREHENSIVE METABOLIC 17213 CHLORIDE 106 MMOL/L 11/11 Unknown COMPREHENSIVE METABOLIC 89671 BILI TOT 0.5 MG/DL 2012 Unknown COMPREHENSIVE METABOLIC 69532 ALK PHOS 64 U/L 2012 Unknown COMPREHENSIVE METABOLIC 83456 SODIUM 136 MMOL/L 11/11 Unknown COMPREHENSIVE METABOLIC 28764 CREATININE 1.27 MG/DL 11/2012 Unknown COMPREHENSIVE METABOLIC 85585 CALCIUM 9.4 MG/DL 2012 Unknown COMPREHENSIVE METABOLIC 61772 POTASSIUM 4.9 MMOL/L 11/11 Unknown COMPREHENSIVE METABOLIC 16540 PROT TOT 6.7 GM/DL 2012 Unknown COMPREHENSIVE METABOLIC 28931 Glucose 108 MG/DL 2012 Unknown COMPREHENSIVE METABOLIC 02851 BICARB 21 MMOL/L 2012 Unknown COMPREHENSIVE METABOLIC 21855 ANION GAP 9 MEQ/L 2012 Unknown THYROID STIMULATING HORMONE 18049 TSH 2.572 uIU/ML 05/04/2012 Unknown COMPLETE BLOOD COUNT [id number] WBC 9.3 10e9/L 05/04/19 13 Unknown COMPLETE BLOOD COUNT [id number] RBC 4.43 10e12/L 2012 Unknown COMPLETE BLOOD COUNT [id number] HGB 14.2 g/dL 3 Unknown COMPLETE BLOOD COUNT [id number] HCT DET 41.1 % 3 Unknown COMPLETE BLOOD COUNT 7760604 MCV 92.8 fL 3 Unknown COMPLETE BLOOD COUNT 2978158 MCH 32.1 pg 3 Unknown COMPLETE BLOOD COUNT 7288248 MCHC 34.5 g/dL 3 Unknown COMPLETE BLOOD COUNT [id number] PLT 193 10e9/L 05/04/19 13 Unknown COMPLETE BLOOD COUNT [id number] MPV 10.8 fL 3 Unknown COMPLETE BLOOD COUNT 1240528 SAMIR % 63.0 % 3 Unknown COMPLETE BLOOD COUNT [id number] LY % 25.3 % 3 Unknown COMPLETE BLOOD COUNT [id number] MON % 9.1 % 3 Unknown COMPLETE BLOOD COUNT [id number] EOS % 2.5 % 3 Unknown COMPLETE BLOOD COUNT 3728882 BASO % 0.1 % 3 Unknown COMPLETE BLOOD COUNT 8067336 RDW 12.6 % 3 Unknown COMPLETE BLOOD COUNT [id number] ABS SAMIR 5.86 10e9/L 013 Unknown COMPLETE BLOOD COUNT [id number] ABS LYMPH 2.35 10e9/L 013 Unknown COMPLETE BLOOD COUNT [id number] ABS MONO 0.85 10e9/L 013 Unknown COMPLETE BLOOD COUNT [id number] ABS EOS 0.23 10e9/L 013 Unknown COMPLETE BLOOD COUNT [id number] ABS BASO 0.01 10e9/L 013 Unknown COMPLETE BLOOD COUNT [id number] RDW-SD 41.2 fL 3 Unknown LIPID GROUP 54018 HDL TEST 35 MG/DL 05/04/2012 Unknown LIPID GROUP 63390 TRIG 236 MG/DL 05/04/2012 Unknown LIPID GROUP 52152 TEST LDL 64 MG/DL 05/04/2012 Unknown LIPID GROUP 20691 CHOL 146 MG/DL 05/04/2012 Unknown LIPID GROUP 70310 RCHOL/HDL 4.17 RATIO 05/04/2012 Unknow n COMPREHENSIVE METABOLIC 82541 AST 23 U/L 2012 Unknown COMPREHENSIVE METABOLIC 86078 ALT 33 IU/L 2012 Unknown COMPREHENSIVE METABOLIC 63545 BUN 16 MG/DL 2012 Unknown COMPREHENSIVE METABOLIC 41193 ALBUMIN 4.8 GM/DL 2012 Unknown COMPREHENSIVE METABOLIC 68481 CHLORIDE 104 MMOL/L 05/04 Unknown COMPREHENSIVE METABOLIC 81447 BILI TOT 0.5 MG/DL 2012 Unknown COMPREHENSIVE METABOLIC 04411 ALK PHOS 70 U/L 2012 Unknown COMPREHENSIVE METABOLIC 74548 SODIUM 138 MMOL/L 05/04 Unknown COMPREHENSIVE METABOLIC 72357 CREATININE 1.08 MG/DL 04/07 Unknown COMPREHENSIVE METABOLIC 25916 CALCIUM 9.7 MG/DL 2012 Unknown COMPREHENSIVE METABOLIC 67630 POTASSIUM 4.4 MMOL/L 05/04 Unknown COMPREHENSIVE METABOLIC 25584 PROT TOT 6.8 GM/DL 2012 Unknown COMPREHENSIVE METABOLIC 04821 Glucose 114 MG/DL 2012 Unknown COMPREHENSIVE METABOLIC 43080 BICARB 27 MMOL/L 2012 Unknown COMPREHENSIVE METABOLIC 10377 ANION GAP 7 MEQ/L 2012 Unknown FREE T4 38968 FREE T4 1.11 NG/DL 05/04/2012 Unknown GFR CALC 4771194 GFR AA >60 ML/MIN 05/04/2012 Unknown GFR CALC 8326906 GFR NON-AA >60 ML/MIN 05/04/2012 Unknown GLYCOSYLATED HEMOGLOBIN TEST 52137 A1C HPLC 74227-5 5.8 % 0 10/29/2011 Unknown COMPREHENSIVE METABOLIC 13805 AST 17 U/L 2011 Unknown COMPREHENSIVE METABOLIC 00964 ALT 21 IU/L 2011 Unknown COMPREHENSIVE METABOLIC 13987 BUN 17 MG/DL 2011 Unknown COMPREHENSIVE METABOLIC 87304 ALBUMIN 4.8 GM/DL 2011 Unknown COMPREHENSIVE METABOLIC 34682 CHLORIDE 106 MMOL/L 10/28 Unknown COMPREHENSIVE METABOLIC 07661 BILI TOT 0.6 MG/DL 2011 Unknown COMPREHENSIVE METABOLIC 03501 ALK PHOS 57 U/L 2011 Unknown COMPREHENSIVE METABOLIC 47780 SODIUM 139 MMOL/L 10/28 Unknown COMPREHENSIVE METABOLIC 00857 CREATININE 1.08 MG/DL 10/05 Unknown COMPREHENSIVE METABOLIC 79597 CALCIUM 9.6 MG/DL 2011 Unknown COMPREHENSIVE METABOLIC 81951 POTASSIUM 4.4 MMOL/L 10/28 Unknown COMPREHENSIVE METABOLIC 73222 PROT TOT 6.9 GM/DL 2011 Unknown COMPREHENSIVE METABOLIC 49385 Glucose 104 MG/DL 2011 Unknown COMPREHENSIVE METABOLIC 60657 BICARB 25 MMOL/L 2011 Unknown COMPREHENSIVE METABOLIC 79659 ANION GAP 8 MEQ/L 2011 Unknown LIPID GROUP 37883 HDL TEST 39 MG/DL 10/29/2011 Unknown LIPID GROUP 93172 TRIG 176 MG/DL 10/29/2011 Unknown LIPID GROUP 08723 TEST LDL 70 MG/DL 10/29/2011 Unknown LIPID GROUP 60693 CHOL 144 MG/DL 10/29/2011 Unknown LIPID GROUP 74648 RCHOL/HDL 3.69 RATIO 10/29/2011 Unknow n GFR CALC 3207803 GFR AA >60 ML/MIN 10/29/2011 Unknown GFR CALC 3244861 GFR NON-AA >60 ML/MIN 10/29/2011 Unknown GFR CALC 7001757 GFR AA >60 ML/MIN 03/14/2011 Unknown GFR CALC 3735936 GFR NON-AA >60 ML/MIN 03/14/2011 Unknown GLYCOSYLATED HEMOGLOBIN TEST 85700 A1C HPLC 40316-0 5.7 % 1 05/15/2010 Unknown COMPREHENSIVE METABOLIC 19240 AST 18 U/L 2010 Unknown COMPREHENSIVE METABOLIC 96582 ALT 25 IU/L 2010 Unknown COMPREHENSIVE METABOLIC 71200 BUN 15 MG/DL 2010 Unknown COMPREHENSIVE METABOLIC 41605 ALBUMIN 4.6 GM/DL 2010 Unknown COMPREHENSIVE METABOLIC 99290 CHLORIDE 107 MMOL/L 03/14 Unknown COMPREHENSIVE METABOLIC 42560 BILI TOT 0.6 MG/DL 2010 Unknown COMPREHENSIVE METABOLIC 31908 ALK PHOS 54 U/L 2010 Unknown COMPREHENSIVE METABOLIC 39620 SODIUM 140 MMOL/L 03/14 Unknown COMPREHENSIVE METABOLIC 96994 CREATININE 1.02 MG/DL 12/2010 Unknown COMPREHENSIVE METABOLIC 77044 CALCIUM 9.4 MG/DL 2010 Unknown COMPREHENSIVE METABOLIC 12086 POTASSIUM 4.6 MMOL/L 03/14 Unknown COMPREHENSIVE METABOLIC 42052 PROT TOT 7.0 GM/DL 2010 Unknown COMPREHENSIVE METABOLIC 48936 Glucose 107 MG/DL 2010 Unknown COMPREHENSIVE METABOLIC 33430 BICARB 28 MMOL/L 2010 Unknown COMPREHENSIVE METABOLIC 41923 ANION GAP 5 MEQ/L 2010 Unknown LIPID GROUP 14281 HDL TEST 39 MG/DL 03/14/2011 Unknown LIPID GROUP 50684 TRIG 157 MG/DL 03/14/2011 Unknown LIPID GROUP 02422 TEST LDL 66 MG/DL 03/14/2011 Unknown LIPID GROUP 05805 CHOL 136 MG/DL 03/14/2011 Unknown LIPID GROUP 46272 RCHOL/HDL 3.49 RATIO 03/14/2011 Unknow n GFR CALC 5362833 GFR AA >60 ML/MIN 11/11/2010 Unknown GFR CALC 3309540 GFR NON-AA >60 ML/MIN 11/11/2010 Unknown LIPID GROUP 33827 HDL TEST 39 MG/DL 11/11/2010 Unknown LIPID GROUP 72111 TRIG 212 MG/DL 11/11/2010 Unknown LIPID GROUP 69077 TEST LDL 67 MG/DL 11/11/2010 Unknown LIPID GROUP 75463 CHOL 148 MG/DL 11/11/2010 Unknown LIPID GROUP 98441 RCHOL/HDL 3.79 RATIO 11/11/2010 Unknow n COMPREHENSIVE METABOLIC 41585 AST 17 U/L 2010 Unknown COMPREHENSIVE METABOLIC 18567 ALT 21 IU/L 2010 Unknown COMPREHENSIVE METABOLIC 08416 BUN 16 MG/DL 2010 Unknown COMPREHENSIVE METABOLIC 64368 ALBUMIN 4.6 GM/DL 2010 Unknown COMPREHENSIVE METABOLIC 53714 CHLORIDE 106 MMOL/L 11/11 Unknown COMPREHENSIVE METABOLIC 57777 BILI TOT 0.5 MG/DL 2010 Unknown COMPREHENSIVE METABOLIC 50438 ALK PHOS 61 U/L 2010 Unknown COMPREHENSIVE METABOLIC 37815 SODIUM 139 MMOL/L 11/11 Unknown COMPREHENSIVE METABOLIC 22936 CREATININE 1.00 MG/DL 11/2010 Unknown COMPREHENSIVE METABOLIC 08054 CALCIUM 9.5 MG/DL 2010 Unknown COMPREHENSIVE METABOLIC 70235 POTASSIUM 4.5 MMOL/L 11/11 Unknown COMPREHENSIVE METABOLIC 78397 PROT TOT 6.9 GM/DL 2010 Unknown COMPREHENSIVE METABOLIC 31374 Glucose 111 MG/DL 2010 Unknown COMPREHENSIVE METABOLIC 10629 BICARB 26 MMOL/L 2010 Unknown COMPREHENSIVE METABOLIC 71048 ANION GAP 7 MEQ/L 2010 Unknown HEMOGLOBIN A1C (GLYCOSYLATED) 38698 A1C HPLC 86926-1 5.6 % 07/24/2010 Unknown GFR CALC 9104749 GFR AA >60 ML/MIN 07/23/2010 Unknown GFR CALC 5829212 GFR NON-AA >60 ML/MIN 07/23/2010 Unknown COMPREHENSIVE METABOLIC 48084 AST 19 U/L 2010 Unknown COMPREHENSIVE METABOLIC 62030 ALT 33 IU/L 2010 Unknown COMPREHENSIVE METABOLIC 99047 BUN 14 MG/DL 2010 Unknown COMPREHENSIVE METABOLIC 76374 ALBUMIN 4.7 GM/DL 2010 Unknown COMPREHENSIVE METABOLIC 92397 CHLORIDE 107 MMOL/L 07/23 Unknown COMPREHENSIVE METABOLIC 46332 BILI TOT 0.4 MG/DL 2010 Unknown COMPREHENSIVE METABOLIC 04216 ALK PHOS 80 U/L 2010 Unknown COMPREHENSIVE METABOLIC 46860 SODIUM 141 MMOL/L 07/23 Unknown COMPREHENSIVE METABOLIC 17213 CREATININE 0.97 MG/DL 07/05 Unknown COMPREHENSIVE METABOLIC 72184 CALCIUM 9.5 MG/DL 2010 Unknown COMPREHENSIVE METABOLIC 55026 POTASSIUM 4.1 MMOL/L 07/23 Unknown COMPREHENSIVE METABOLIC 91638 PROT TOT 6.8 GM/DL 2010 Unknown COMPREHENSIVE METABOLIC 67023 Glucose 120 MG/DL 2010 Unknown COMPREHENSIVE METABOLIC 83446 BICARB 26 MMOL/L 2010 Unknown COMPREHENSIVE METABOLIC 96240 ANION GAP 8 MEQ/L 2010 Unknown LIPID GROUP 84445 HDL TEST 41 MG/DL 07/23/2010 Unknown LIPID GROUP 32613 TRIG 175 MG/DL 07/23/2010 Unknown LIPID GROUP 34520 TEST LDL 72 MG/DL 07/23/2010 Unknown LIPID GROUP 21782 CHOL 148 MG/DL 07/23/2010 Unknown LIPID GROUP 78870 RCHOL/HDL 3.61 RATIO 07/23/2010 Unknow n PSA FREE AND TOTAL 57310|50612 % FREE PSA FOOTNOTE % 011 Unknown PSA FREE AND TOTAL 75789|19499 XPSA TOTAL 0.83 NG/ML 011 Unknown PSA FREE AND TOTAL 89279|44119 XPSA FREE 0.13 NG/ML 04/26/19 11 Unknown VITAMIN D TOTAL (25 HYDROXY) 53051 VIT D TOTL 26 NG/ML 04/22/2010 Unknown TESTOSTERONE TOTAL 93089 TESTOS TO 387 NG/DL 04/19/2010 Unknown GFR CALC 5875888 GFR AA >60 ML/MIN 04/19/2010 Unknown GFR CALC 5960531 GFR NON-AA >60 ML/MIN 04/19/2010 Unknown COMPLETE BLOOD COUNT 80382 WBC 7.0 10e9/L 04/19/19 11 Unknown COMPLETE BLOOD COUNT 43134 RBC 5.07 10e12/L 2010 Unknown COMPLETE BLOOD COUNT 15943 HGB 15.6 g/dL 1 Unknown COMPLETE BLOOD COUNT 39794 HCT DET 46.2 % 1 Unknown COMPLETE BLOOD COUNT 16268 MCV 91.1 fL 1 Unknown COMPLETE BLOOD COUNT 81798 MCH 30.8 pg 1 Unknown COMPLETE BLOOD COUNT 13422 MCHC 33.8 g/dL 1 Unknown COMPLETE BLOOD COUNT 76345 PLT 205 10e9/L 04/19/19 11 Unknown COMPLETE BLOOD COUNT 28814 MPV 11.1 fL 1 Unknown COMPLETE BLOOD COUNT 33123 SAMIR % 62.4 % 1 Unknown COMPLETE BLOOD COUNT 03675 LY % 28.5 % 1 Unknown COMPLETE BLOOD COUNT 78202 MON % 6.9 % 1 Unknown COMPLETE BLOOD COUNT 85498 EOS % 2.1 % 1 Unknown COMPLETE BLOOD COUNT 16985 BASO % 0.1 % 1 Unknown COMPLETE BLOOD COUNT 37864 RDW 13.4 % 1 Unknown COMPLETE BLOOD COUNT 88751 ABS SAMIR 4.37 10e9/L 011 Unknown COMPLETE BLOOD COUNT 58810 ABS LYMPH 2.00 10e9/L 011 Unknown COMPLETE BLOOD COUNT 58088 ABS MONO 0.48 10e9/L 011 Unknown COMPLETE BLOOD COUNT 27132 ABS EOS 0.15 10e9/L 011 Unknown COMPLETE BLOOD COUNT 97926 ABS BASO 0.01 10e9/L 011 Unknown COMPLETE BLOOD COUNT 29652 RDW-SD 43.8 fL 1 Unknown LIPID GROUP 80638 HDL TEST 39 MG/DL 04/19/2010 Unknown LIPID GROUP 75344 TRIG 244 MG/DL 04/19/2010 Unknown LIPID GROUP 04706 TEST LDL 168 MG/DL 04/19/2010 Unknown LIPID GROUP 41570 CHOL 256 MG/DL 04/19/2010 Unknown LIPID GROUP 11541 RCHOL/HDL 6.56 RATIO 04/19/2010 Unknow n COMPREHENSIVE METABOLIC 66518 AST 28 U/L 2010 Unknown COMPREHENSIVE METABOLIC 22237 ALT 46 IU/L 2010 Unknown COMPREHENSIVE METABOLIC 01980 BUN 14 MG/DL 2010 Unknown COMPREHENSIVE METABOLIC 95152 ALBUMIN 4.9 GM/DL 2010 Unknown COMPREHENSIVE METABOLIC 91312 CHLORIDE 104 MMOL/L 04/19 Unknown COMPREHENSIVE METABOLIC 41200 BILI TOT 0.8 MG/DL 2010 Unknown COMPREHENSIVE METABOLIC 62458 ALK PHOS 71 U/L 2010 Unknown COMPREHENSIVE METABOLIC 73432 SODIUM 139 MMOL/L 04/19 Unknown COMPREHENSIVE METABOLIC 66500 CREATININE 1.06 MG/DL 04/06 Unknown COMPREHENSIVE METABOLIC 17026 CALCIUM 9.9 MG/DL 2010 Unknown COMPREHENSIVE METABOLIC 27141 POTASSIUM 4.3 MMOL/L 04/19 Unknown COMPREHENSIVE METABOLIC 46771 PROT TOT 7.2 GM/DL 2010 Unknown COMPREHENSIVE METABOLIC 54693 Glucose 99 MG/DL 2010 Unknown COMPREHENSIVE METABOLIC 74076 BICARB 28 MMOL/L 2010 Unknown COMPREHENSIVE METABOLIC 11559 ANION GAP 7 MEQ/L 2010 Unknown FREE T4 08001 FREE T4 1.26 NG/DL 04/19/2010 Unknown Procedures Procedure Codes Date ROUTINE VENIPUNCTURE CPT-4: 42022 05/24/2019 COMPREHEN METABOLIC PANEL CPT-4: 73997 05/24/2019 A1C HPLC CPT-4: 42111 05/24/2019 FLU VACC PRSV FREE INC ANTIG 65 AND OLDER CPT-4: 36921 01/26/2019 FLU VACC PRSV FREE INC ANTIG 65 AND OLDER CPT-4: 04357 01/26/2019 ADMIN INFLUENZA VIRUS VAC CPT-4: G0008 01/26/2019 ROUTINE VENIPUNCTURE CPT-4: 98885 01/26/2019 COMPREHEN METABOLIC PANEL CPT-4: 76448 01/26/2019 COMPLETE CBC W/AUTO DIFF WBC CPT-4: 73135 01/26/2019 LIPID PANEL CPT-4: 84963 01/26/2019 A1C HPLC CPT-4: 87658 01/26/2019 ROUTINE VENIPUNCTURE CPT-4: 30000 09/30/2018 METABOLIC PANEL TOTAL CA CPT-4: 27141 09/30/2018 URINALYSIS NONAUTO W/O SCOPE CPT-4: 78368 08/19/2018 URINE CULTURE/ COLONY COUNT CPT-4: 50913 08/19/2018 MICROALBUMIN QUANTITATIVE CPT-4: 96227 08/19/2018 ROUTINE VENIPUNCTURE CPT-4: 58304 08/16/2018 ASSAY THYROID STIM HORMONE CPT-4: 62521 08/16/2018 COMPREHEN METABOLIC PANEL CPT-4: 80980 08/16/2018 COMPLETE CBC W/AUTO DIFF WBC CPT-4: 21008 08/16/2018 LIPID PANEL CPT-4: 75420 08/16/2018 A1C HPLC CPT-4: 14104 08/16/2018 LIPID PANEL CPT-4: 39625 05/05/2018 COMPREHEN METABOLIC PANEL CPT-4: 01169 05/05/2018 ROUTINE VENIPUNCTURE CPT-4: 71154 05/05/2018 A1C HPLC CPT-4: 64356 05/05/2018 COMPLETE CBC W/AUTO DIFF WBC CPT-4: 03146 05/05/2018 ASSAY THYROID STIM HORMONE CPT-4: 29656 05/05/2018 MICROALBUMIN QUANTITATIVE CPT-4: 92627 01/19/2018 PRESCRIP TRANSMIT VIA ERX SY CPT-4: G8553 01/19/2018 ROUTINE VENIPUNCTURE CPT-4: 73954 01/13/2018 COMPREHEN METABOLIC PANEL CPT-4: 63402 01/13/2018 A1C HPLC CPT-4: 51520 01/13/2018 LIPID PANEL CPT-4: 88591 01/13/2018 ASSAY OF PSA TOTAL CPT-4: 96980 01/13/2018 ASSAY THYROID STIM HORMONE CPT-4: 60981 01/13/2018 ROUTINE VENIPUNCTURE CPT-4: 07140 10/06/2017 COMPREHEN METABOLIC PANEL CPT-4: 27451 10/06/2017 COMPLETE CBC W/AUTO DIFF WBC CPT-4: 61674 10/06/2017 LIPID PANEL CPT-4: 26006 10/06/2017 A1C HPLC CPT-4: 81444 10/06/2017 VITAMIN B-12 CPT-4: 78660 10/06/2017 DESTRUCT PREMALG LESION (Cryosurgery) CPT-4: 70905 DESTRUCT PREMALG LES 2-14 CPT-4: 18255 04/23/2017 PRESCRIP TRANSMIT VIA ERX SY CPT-4: G8553 03/11/2017 ROUTINE VENIPUNCTURE CPT-4: 69063 03/05/2017 ASSAY OF FREE THYROXINE CPT-4: 23512 03/05/2017 ASSAY THYROID STIM HORMONE CPT-4: 25725 03/05/2017 COMPREHEN METABOLIC PANEL CPT-4: 74984 03/05/2017 COMPLETE CBC W/AUTO DIFF WBC CPT-4: 01159 03/05/2017 LIPID PANEL CPT-4: 25656 03/05/2017 A1C HPLC CPT-4: 89395 03/05/2017 ROUTINE VENIPUNCTURE CPT-4: 36076 06/16/2016 ASSAY OF FREE THYROXINE CPT-4: 48995 06/16/2016 ASSAY THYROID STIM HORMONE CPT-4: 40011 06/16/2016 COMPREHEN METABOLIC PANEL CPT-4: 44710 06/16/2016 COMPLETE CBC W/AUTO DIFF WBC CPT-4: 20567 06/16/2016 LIPID PANEL CPT-4: 94940 06/16/2016 A1C HPLC CPT-4: 65012 06/16/2016 ROUTINE VENIPUNCTURE CPT-4: 06707 03/06/2016 ASSAY OF FREE THYROXINE CPT-4: 92884 03/06/2016 ASSAY THYROID STIM HORMONE CPT-4: 35651 03/06/2016 COMPREHEN METABOLIC PANEL CPT-4: 25829 03/06/2016 COMPLETE CBC W/AUTO DIFF WBC CPT-4: 80737 03/06/2016 LIPID PANEL CPT-4: 85416 03/06/2016 A1C HPLC CPT-4: 54554 03/06/2016 PRESCRIP TRANSMIT VIA ERX SY CPT-4: G8553 09/10/2015 PNEUMOCOCCAL VACC 23 ROSANNE IM CPT-4: 21702 09/06/2015 ADMIN PNEUMOCOCCAL VACCINE CPT-4: G0009 09/06/2015 ROUTINE VENIPUNCTURE CPT-4: 81799 08/31/2015 COMPREHEN METABOLIC PANEL CPT-4: 13248 08/31/2015 COMPLETE CBC W/AUTO DIFF WBC CPT-4: 29170 08/31/2015 LIPID PANEL CPT-4: 87962 08/31/2015 ASSAY OF PSA TOTAL CPT-4: 85880 08/31/2015 A1C HPLC CPT-4: 67918 08/31/2015 ASSAY OF FREE THYROXINE CPT-4: 04416 08/31/2015 ASSAY THYROID STIM HORMONE CPT-4: 04000 08/31/2015 PRESCRIP TRANSMIT VIA ERX SY CPT-4: G8553 06/29/2015 FLU VACC PRSV FREE INC ANTIG 65 AND OLDER CPT-4: 98971 01/17/2015 PNEUMOCOCCAL VACC 13 ROSANNE IM CPT-4: 61915 01/17/2015 ADMIN INFLUENZA VIRUS VAC CPT-4: G0008 01/17/2015 ADMIN PNEUMOCOCCAL VACCINE CPT-4: G0009 01/17/2015 DESTRUCT PREMALG LESION (Cryosurgery) CPT-4: 27347 PRESCRIP TRANSMIT VIA ERX SY CPT-4: G8553 01/17/2015 ROUTINE VENIPUNCTURE CPT-4: 60748 01/12/2015 COMPREHEN METABOLIC PANEL CPT-4: 44972 01/12/2015 COMPLETE CBC W/AUTO DIFF WBC CPT-4: 98457 01/12/2015 LIPID PANEL CPT-4: 23618 01/12/2015 A1C HPLC CPT-4: 57331 01/12/2015 DESTRUCT PREMALG LESION (Cryosurgery) CPT-4: 59571 ROUTINE VENIPUNCTURE CPT-4: 52152 08/15/2014 COMPREHEN METABOLIC PANEL CPT-4: 42859 08/15/2014 COMPLETE CBC W/AUTO DIFF WBC CPT-4: 22568 08/15/2014 LIPID PANEL CPT-4: 53875 08/15/2014 A1C HPLC CPT-4: 89395 08/15/2014 ASSAY OF PSA TOTAL CPT-4: 24432 08/15/2014 ASSAY OF FREE THYROXINE CPT-4: 99525 08/15/2014 ASSAY THYROID STIM HORMONE CPT-4: 24702 08/15/2014 ROUTINE VENIPUNCTURE CPT-4: 15779 12/14/2013 ASSAY OF FREE THYROXINE CPT-4: 62141 12/14/2013 ASSAY THYROID STIM HORMONE CPT-4: 51919 12/14/2013 COMPREHEN METABOLIC PANEL CPT-4: 31053 12/14/2013 COMPLETE CBC W/AUTO DIFF WBC CPT-4: 72286 12/14/2013 LIPID PANEL CPT-4: 35325 12/14/2013 A1C HPLC CPT-4: 37912 12/14/2013 ROUTINE VENIPUNCTURE CPT-4: 56170 06/08/2013 ASSAY OF FREE THYROXINE CPT-4: 94974 06/08/2013 ASSAY THYROID STIM HORMONE CPT-4: 98019 06/08/2013 COMPREHEN METABOLIC PANEL CPT-4: 24955 06/08/2013 COMPLETE CBC W/AUTO DIFF WBC CPT-4: 96466 06/08/2013 LIPID PANEL CPT-4: 57386 06/08/2013 A1C HPLC CPT-4: 86413 06/08/2013 ROUTINE VENIPUNCTURE CPT-4: 05190 11/11/2012 COMPREHEN METABOLIC PANEL CPT-4: 37267 11/11/2012 COMPLETE CBC W/AUTO DIFF WBC CPT-4: 25691 11/11/2012 LIPID PANEL CPT-4: 60011 11/11/2012 A1C GLYCOSYLATED HEMOGLOBIN TEST CPT-4: 16262 013 ASSAY THYROID STIM HORMONE CPT-4: 94604 11/11/2012 ROUTINE VENIPUNCTURE CPT-4: 66526 05/04/2012 ASSAY OF FREE THYROXINE CPT-4: 58332 05/04/2012 ASSAY THYROID STIM HORMONE CPT-4: 62169 05/04/2012 COMPREHEN METABOLIC PANEL CPT-4: 16322 05/04/2012 COMPLETE CBC W/AUTO DIFF WBC CPT-4: 65706 05/04/2012 LIPID PANEL CPT-4: 15555 05/04/2012 DESTRUCT PREMALG LESION (Cryosurgery) CPT-4: 25364 DESTRUCT PREMALG LES 2-14 CPT-4: 84476 03/02/2012 ROUTINE VENIPUNCTURE CPT-4: 33746 10/29/2011 COMPREHEN METABOLIC PANEL CPT-4: 66678 10/29/2011 LIPID PANEL CPT-4: 12797 10/29/2011 A1C GLYCOSYLATED HEMOGLOBIN TEST CPT-4: 03570 012 ROUTINE VENIPUNCTURE CPT-4: 62560 07/29/2011 COMPREHEN METABOLIC PANEL CPT-4: 41797 07/29/2011 LIPID PANEL CPT-4: 06741 07/29/2011 A1C GLYCOSYLATED HEMOGLOBIN TEST CPT-4: 48429 012 ROUTINE VENIPUNCTURE CPT-4: 31197 03/14/2011 COMPREHEN METABOLIC PANEL CPT-4: 41648 03/14/2011 LIPID PANEL CPT-4: 15656 03/14/2011 A1C GLYCOSYLATED HEMOGLOBIN TEST CPT-4: 86534 011 ROUTINE VENIPUNCTURE CPT-4: 95321 11/11/2010 COMPREHEN METABOLIC PANEL CPT-4: 96568 11/11/2010 LIPID PANEL CPT-4: 39843 11/11/2010 URINE CULTURE/ COLONY COUNT CPT-4: 11274 11/11/2010 URINALYSIS NONAUTO W/O SCOPE CPT-4: 04138 10/29/2010 URINE CULTURE/ COLONY COUNT CPT-4: 44954 10/29/2010 LIPID PANEL CPT-4: 25744 07/23/2010 COMPREHEN METABOLIC PANEL CPT-4: 74767 07/23/2010 ROUTINE VENIPUNCTURE CPT-4: 57588 07/23/2010 ROUTINE VENIPUNCTURE CPT-4: 02720 04/26/2010 PSA FREE AND TOTAL CPT-4: 38983|62721 04/26/2010 OCCULT BLOOD FECES CPT-4: 78995 04/24/2010 ROUTINE VENIPUNCTURE CPT-4: 23937 04/19/2010 COMPLETE CBC W/AUTO DIFF WBC CPT-4: 81724 04/19/2010 COMPREHEN METABOLIC PANEL CPT-4: 74841 04/19/2010 LIPID PANEL CPT-4: 00845 04/19/2010 TESTOSTERONE TOTAL - MALE CPT-4: 29817 04/19/2010 ASSAY THYROID STIM HORMONE CPT-4: 79454 04/19/2010 ASSAY OF FREE THYROXINE CPT-4: 70091 04/19/2010 VITAMIN D TOTAL (25 HYDROXY) CPT-4: 72380 04/19/2010 Vital Signs Date Vital 06/02/2019 Blood Pressure 1: 132/80 Code: 8480-6 BMI: 29.5 Code: 67011-1 Heart Rate 1: 64 bpm Height: 6'3" [...] 1: 112/70 Code: 8480-6 BMI: 28.9 Code: 19044-8 Heart Rate 1: 60 bpm Height: 6'3" Respiratory Rate: 20 bpm SpO2: 95% Tempera ture: 36.6 (C) / 97.9 (F) Weight: 231 lbs 01/19/2018 Blood Pressure 1: 150/82 Code: 8480-6 Heart Rate 1: 63 bpm Respiratory Rate: 18 bpm SpO2: 98% Temperature: 36.0 (C) / 96.8 (F) We ight: 225 lbs 10/15/2017 Blood Pressure 1: 126/82 Code: 8480-6 BMI: 27.9 Code: 52445-7 Heart Rate 1: 64 bpm Height: 6'3" Respiratory Rate: 20 bpm SpO2: 96% Tempera ture: 36.7 (C) / 98.1 (F) Weight: 223 lbs 04/23/2017 Blood Pressure 1: 136/74 Code: 8480-6 BMI: 28.7 Code: 52372-3 Heart Rate 1: 76 bpm Height: 6'3" Respiratory Rate: 20 bpm Temperature: 37 .0 (C) / 98.6 (F) Weight: 230 lbs 03/11/2017 Blood Pressure 1: 136/66 Code: 8480-6 BMI: 28.6 Code: 24045-1 Heart Rate 1: 60 bpm Height: 6'3" Respiratory Rate: 20 bpm Temperature: 36 .7 (C) / 98.1 (F) Weight: 229 lbs 07/09/2016 Blood Pressure 1: 132/80 Code: 8480-6 BMI: 27.7 Code: 57293-2 Heart Rate 1: 64 bpm Height: 6'3" Respiratory Rate: 20 bpm SpO2: 96% Tempera ture: 36.9 (C) / 98.4 (F) Weight: 222 lbs 03/10/2016 Blood Pressure 1: 134/78 Code: 8480-6 BMI: 28.5 Code: 33761-8 Heart Rate 1: 60 bpm Height: 6'3" Respiratory Rate: 20 bpm SpO2: 96% Tempera ture: 36.7 (C) / 98.1 (F) Weight: 228 lbs 09/12/2015 Blood Pressure 1: 136/78 Code: 8480-6 Heart Rate 1: 84 bpm Height: Respiratory Rate: 24 bpm SpO2: 97% Temperature: 36.4 (C) / 97.6 (F) We ight: 09/10/2015 Blood Pressure 1: 124/76 Code: 8480-6 BMI: 28.5 Code: 87431-6 Heart Rate 1: 76 bpm Height: 6'3" Respiratory Rate: 24 bpm SpO2: 97% Tempera ture: 36.4 (C) / 97.6 (F) Weight: 228 lbs 09/06/2015 Blood Pressure 1: 124/82 Code: 8480-6 BMI: 29.0 Code: 16518-6 Heart Rate 1: 66 bpm Height: 6'3" Respiratory Rate: 20 bpm SpO2: 97% Tempera ture: 36.4 (C) / 97.6 (F) Weight: 232 lbs 06/29/2015 Blood Pressure 1: 124/ Code: 8480-6 Heart Rate 1: 88 bpm Height: Respiratory Rate: 20 bpm Temperature: 36.7 (C) / 98.1 (F) Weight: 01/17/2015 Blood Pressure 1: 124/ Code: 8480-6 BMI: 27.7 Code: 33792-0 Heart Rate 1: 76 bpm Height: 6'3" Respiratory Rate: 20 bpm Temperature: 36 .6 (C) / 97.8 (F) Weight: 222 lbs 09/19/2014 Blood Pressure 1: 128/80 Code: 8480-6 BMI: 27.4 Code: 33894-4 Heart Rate 1: 64 bpm Height: 6'3" Respiratory Rate: 20 bpm Temperature: 36 .4 (C) / 97.6 (F) Weight: 219 lbs 10/17/2013 Blood Pressure 1: 11670 Code: 8480-6 Heart Rate 1: 88 bpm Respiratory Rate: 20 bpm Temperature: 36.9 (C) / 98.4 (F) Weight: 220 lbs 09/23/2013 Blood Pressure 1: 124/80 Code: 8480-6 BMI: 28.7 Code: 12908-4 Heart Rate 1: 76 bpm Height: 6'3" Respiratory Rate: 20 bpm Temperature: 36 .8 (C) / 98.2 (F) Weight: 230 lbs 07/22/2013 Blood Pressure 1: 128/70 Code: 8480-6 art Rate 1: 78 bpm 06/20/2013 Blood Pressure 1: 144/86 Code: 8480-6 BMI: 28.7 Code: 46070-9 Heart Rate 1: 92 bpm Height: 6'3" Respiratory Rate: 20 bpm Temperature: 36 .4 (C) / 97.6 (F) Weight: 230 lbs 11/25/2012 Blood Pressure 1: 128/80 Code: 8480-6 BMI: 27.5 Code: 81880-1 Heart Rate 1: 92 bpm Height: 6'3" Respiratory Rate: 20 bpm Temperature: 36 .8 (C) / 98.3 (F) Weight: 220 lbs 08/27/2012 Blood Pressure 1: 142/80 Code: 8480-6 BMI: 27.7 Code: 53153-1 Heart Rate 1: 76 bpm Height: 6'3" Respiratory Rate: 20 bpm Temperature: 36 .8 (C) / 98.3 (F) Weight: 222 lbs 05/11/2012 Blood Pressure 1: 136/80 Code: 8480-6 BMI: 27.7 Code: 43699-0 Heart Rate 1: 76 bpm Height: 6'3" Respiratory Rate: 20 bpm Temperature: 36 .8 (C) / 98.3 (F) Weight: 222 lbs 03/02/2012 Blood Pressure 1: 136/70 Code: 8480-6 BMI: 28.0 Code: 57731-0 Heart Rate 1: 80 bpm Height: 6'3" Respiratory Rate: 20 bpm Temperature: 36 .6 (C) / 97.8 (F) Weight: 224 lbs 12/11/2011 Blood Pressure 1: 142/80 Code: 8480-6 BMI: 27.1 Code: 27898-7 Heart Rate 1: 84 bpm Height: 6'3" Respiratory Rate: 20 bpm Temperature: 36 .9 (C) / 98.4 (F) Weight: 217 lbs 08/14/2011 Blood Pressure 1: 130/82 Code: 8480-6 He art Rate 1: 64 bpm 07/29/2011 Blood Pressure 1: 132/64 Code: 8480-6 BMI: 26.7 Code: 77525-9 Heart Rate 1: 72 bpm Height: 6'3" [...] 1: 142/88 Code: 8480-6 BMI: 26.4 Code: 17002-4 Heart Rate 1: 80 bpm Height: 6'3" [...] labs Encounters Encounter Performer Location Codes Date () OFFICE/OUTPATIENT VISIT EST Diagnosis: Essential (primary) hypertension[ICD10: I10] Diagnosis: Gastro-esophageal reflux disease without esophagitis[ICD10: K21.9] Diagnosis: Type 2 diabetes mellitus with hyperglycemia[ICD10: E11.65] Najma MCARTHUR [employer] CPT-4: 41673 06/02/2019 ([id number]) NURSE/OUTPATIENT VISIT EST Diagnosis: Type 2 diabetes mellitus without complications[ICD10: E11.9] Diagnosis: Essential (primary) hypertension[ICD10: I10] Diagnosis: Mixed hyperlipidemia[ICD10: E78.2] Najma GODINEZ [employer] CPT-4: 57068 05/24/2019 ([id number]) OFFICE/OUTPATIENT VISIT EST Diagnosis: Essential (primary) hypertension[ICD10: I10] Diagnosis: Type 2 diabetes mellitus without complications[ICD10: E11.9] Diagnosis: Mixed hyperlipidemia[ICD10: E78.2] Najma GODINEZ [employer] CPT-4: 48209 01/31/2019 ([id number]) NURSE/OUTPATIENT VISIT EST Diagnosis: Mixed hyperlipidemia[ICD10: E78.2] Diagnosis: Type 2 diabetes mellitus without complications[ICD10: E11.9] Diagnosis: Essential (primary) hypertension[ICD10: I10] Diagnosis: Chronic kidney disease, unspecified[ICD10: N18.9] aNjma MCARTHUR [employer] CPT-4: 42877 01/26/2019 ([id number]) NURSE/OUTPATIENT VISIT EST Diagnosis: Chronic kidney disease, unspecified[ICD10: N18.9] Diagnosis: Essential (primary) hypertension[ICD10: I10] Najma OG [employer] CPT-4: 88969 09/30/2018 ([id number]) OFFICE/OUTPATIENT VISIT EST Diagnosis: Essential (primary) hypertension[ICD10: I10] Diagnosis: Type 2 diabetes mellitus without complications[ICD10: E11.9] Diagnosis: Mixed hyperlipidemia[ICD10: E78.2] Diagnosis: Unspecified kidney failure[ICD10: N19] Najma [employer]GA[employer]ang[employer] CPT-4: 96583 08/19/2018 ([id number]) NURSE/OUTPATIENT VISIT EST Diagnosis: Essential (primary) hypertension[ICD10: I10] Diagnosis: Type 1 diabetes mellitus with unspecified complications[ICD10: E10.8] Diagnosis: Mixed hyperlipidemia[ICD10: E78.2] Najma Kathleenvicentedasha ABBOTTHARPALEVELINA GODINEZ [employer] CPT-4: 44606 08/16/2018 ([id number]) OFFICE/OUTPATIENT VISIT EST Diagnosis: Essential (primary) hypertension[ICD10: I10] Diagnosis: Type 2 diabetes mellitus without complications[ICD10: E11.9] Diagnosis: Mixed hyperlipidemia[ICD10: E78.2] Najma Kathleenvicentedasha ABBOTTHARPALEVELINA GODINEZ [employer] CPT-4: 43929 05/10/2018 ([id number]) NURSE/OUTPATIENT VISIT EST Diagnosis: Essential (primary) hypertension[ICD10: I10] Diagnosis: Mixed hyperlipidemia[ICD10: E78.2] Diagnosis: Type 1 diabetes mellitus with unspecified complications[ICD10: E10.8] Najma Kathleenvicentedasha [employer] CPT-4: 16515 05/05/2018 ([id number]) OFFICE/OUTPATIENT VISIT EST Diagnosis: Type 2 diabetes mellitus without complications[ICD10: E11.9] Diagnosis: Mixed hyperlipidemia[ICD10: E78.2] Diagnosis: Nicotine dependence, unspecified, uncomplicated[ICD10: F17.200] Diagnosis: Essential (primary) hypertension[ICD10: I10] Najma OG DO [facility] CPT-4: 96116 01/19/2018 ([id number]) NURSE/OUTPATIENT VISIT EST Diagnosis: Type 1 diabetes mellitus with unspecified complications[ICD10: E10.8] Diagnosis: Essential (primary) hypertension[ICD10: I10] Diagnosis: Male erectile disorder[ICD10: F52.21] Diagnosis: Encounter for screening for malignant neoplasm of prostate[ICD10: Z12.5] Najma OG DO [facility] CPT-4: 12875 01/13/2018 ([id number]) OFFICE/OUTPATIENT VISIT EST Diagnosis: Type 2 diabetes mellitus without complications[ICD10: E11.9] Diagnosis: Essential (primary) hypertension[ICD10: I10] Diagnosis: Mixed hyperlipidemia[ICD10: E78.2] Najma OG Taasera [facility] CPT-4: 69487 10/15/2017 ([id number]) NURSE/OUTPATIENT VISIT EST Diagnosis: Type 2 diabetes mellitus without complications[ICD10: E11.9] Diagnosis: Mixed hyperlipidemia[ICD10: E78.2] Diagnosis: Essential (primary) hypertension[ICD10: I10] Diagnosis: Glossitis[ICD10: K14.0] Najma THAKKAR Taasera [facility] CPT-4: 52715 10/06/2017 ([id number]) OFFICE/OUTPATIENT VISIT EST Diagnosis: Type 2 diabetes mellitus without complications[ICD10: E11.9] Diagnosis: Mixed hyperlipidemia[ICD10: E78.2] Diagnosis: Essential (primary) hypertension[ICD10: I10] Najma OG Taasera [facility] CPT-4: 07937 03/11/2017 ([id number]) OFFICE/OUTPATIENT VISIT EST Diagnosis: Type 1 diabetes mellitus with unspecified complications[ICD10: E10.8] Diagnosis: Mixed hyperlipidemia[ICD10: E78.2] Diagnosis: Essential (primary) hypertension[ICD10: I10] Diagnosis: Other fatigue[ICD10: R53.83] Najma OG Taasera [facility] CPT-4: 05114 03/05/2017 ([id number]) OFFICE/OUTPATIENT VISIT EST Diagnosis: Type 2 diabetes mellitus without complications[ICD10: E11.9] Diagnosis: Mixed hyperlipidemia[ICD10: E78.2] Diagnosis: Essential (primary) hypertension[ICD10: I10] Diagnosis: Nicotine dependence, unspecified, uncomplicated[ICD10: F17.200] Najma OG [employer] CPT-4: 34743 07/09/2016 ([id number]) OFFICE/OUTPATIENT VISIT EST Diagnosis: Type 1 diabetes mellitus with unspecified complications[ICD10: E10.8] Diagnosis: Mixed hyperlipidemia[ICD10: E78.2] Diagnosis: Essential (primary) hypertension[ICD10: I10] Najma OG DO [employer] CPT-4: 85507 06/16/2016 ([id number]) OFFICE/OUTPATIENT VISIT EST Diagnosis: Type 2 diabetes mellitus without complications[ICD10: E11.9] Diagnosis: Mixed hyperlipidemia[ICD10: E78.2] Diagnosis: Essential (primary) hypertension[ICD10: I10] Najma OG [employer] CPT-4: 59034 03/10/2016 ([id number]) OFFICE/OUTPATIENT VISIT EST Diagnosis: Type 1 diabetes mellitus with unspecified complications[ICD10: E10.8] Diagnosis: Mixed hyperlipidemia[ICD10: E78.2] Diagnosis: Essential (primary) hypertension[ICD10: I10] Najma OG [employer] CPT-4: 29230 03/06/2016 ([id number]) OFFICE/OUTPATIENT VISIT EST Diagnosis: Bitten or stung by nonvenomous insect and other nonvenomous arthropods, subsequent encounter[ICD10: W57.XXXD] Diagnosis: Insect bite (nonvenomous), right thigh, subsequent encounter[ICD10: S70.361D] [place] Brower NAJMA OG [employer] CPT-4: 29720 11/2015 ([id number]) OFFICE/OUTPATIENT VISIT EST Diagnosis: Bitten or stung by nonvenomous insect and other nonvenomous arthropods, initial encounter[ICD10: W57.XXXA] Diagnosis: Insect bite (nonvenomous), right thigh, initial encounter[ICD10: S70.361A] Barbara Brower NAJMA OG Taasera [facility] CPT-4: 23812 09/2015 ([id number]) OFFICE/OUTPATIENT VISIT EST Diagnosis: Mixed hyperlipidemia[ICD10: E78.2] Diagnosis: Essential (primary) hypertension[ICD10: I10] Diagnosis: Type 2 diabetes mellitus without complications[ICD10: E11.9] Diagnosis: Encounter for immunization[ICD10: Z23] Diagnosis: Encounter for screening for malignant neoplasm of colon[ICD10: Z12.11] Diagnosis: Abnormal weight gain[ICD10: R63.5] Barbara Brower ANUM Grey HEVERVICENTE Taasera [facility] CPT-4: 24876 09/06/2015 ([id number]) OFFICE/OUTPATIENT VISIT EST Diagnosis: Type 2 diabetes mellitus without complications[ICD10: E11.9] Diagnosis: Mixed hyperlipidemia[ICD10: E78.2] Diagnosis: Essential (primary) hypertension[ICD10: I10] Diagnosis: Encounter for screening for malignant neoplasm of prostate[ICD10: Z12.5] Diagnosis: Other fatigue[ICD10: R53.83] Najma Grey HEVERVICENTE Taasera [facility] CPT-4: 07513 08/31/2015 OFFICE/OUTPATIENT VISIT EST Diagnosis: Diarrhea, unspecified[ICD10: R19.7] Henrietta Grey LoyalisVICENTE Taasera [facility] CPT-4: 55498 06/29/2015 OFFICE/OUTPATIENT VISIT EST Diagnosis: PNEUMOCOCCAL VACCINE[ICD10: Z23] Diagnosis: FLU VACCINE[ICD10: Z23] Diagnosis: Essential (primary) hypertension[ICD10: I10] Diagnosis: Mixed hyperlipidemia[ICD10: E78.2] Diagnosis: Type 1 diabetes mellitus with unspecified complications[ICD10: E10.8] Diagnosis: Actinic keratosis[ICD10: L57.0] Najma Grey LoyalisVICENTE Taasera [facility] CPT-4: 45818 01/17/2015 ([id number]) OFFICE/OUTPATIENT VISIT EST Diagnosis: Type 2 diabetes mellitus without complications[ICD10: E11.9] Diagnosis: Impaired fasting glucose[ICD10: R73.01] Diagnosis: Mixed hyperlipidemia[ICD10: E78.2] Diagnosis: Essential (primary) hypertension[ICD10: I10] Najma Grey LoyalisVICENTE Taasera [facility] CPT-4: 96963 01/12/2015 ([id number]) OFFICE/OUTPATIENT VISIT EST Diagnosis: - I - HYPERLIPIDEMIA NEC/NOS[ICD9: 272.4] Diagnosis: HYPERTENSION[ICD9: 401.9] Diagnosis: DM W/O COMPLICATION TYPE II[ICD9: 250.00] Diagnosis: ACTINIC KERATOSIS[ICD9: 702.0] Najma OG DO [facility] CPT-4: 78252 09/19/2014 ([id number]) OFFICE/OUTPATIENT VISIT EST Diagnosis: HYPERLIPIDEMIA NEC/NOS[ICD9: 272.4] Diagnosis: HYPERTENSION[ICD9: 401.9] Diagnosis: IMPAIRED FASTING GLUCOSE[ICD9: 790.21] Diagnosis: MALAISE AND FATIGUE[ICD9: 780.79] Najma OG Taasera [facility] CPT-4: 05176 08/15/2014 ([id number]) OFFICE/OUTPATIENT VISIT EST Diagnosis: HYPERLIPIDEMIA NEC/NOS[ICD9: 272.4] Diagnosis: HYPERTENSION[ICD9: 401.9] Diagnosis: IMPAIRED FASTING GLUCOSE[ICD9: 790.21] Najma OG Taasera [facility] CPT-4: 86018 12/14/2013 ([id number]) OFFICE/OUTPATIENT VISIT EST Diagnosis: Post herpetic neuralgia[ICD9: 053.19] Najma OG Taasera [facility] CPT-4: 53939 10/17/2013 OFFICE/OUTPATIENT VISIT EST Diagnosis: Shingles[ICD9: 053.9] Diagnosis: Post herpetic neuralgia[ICD9: 053.19] Jeanie Navarro CLAUDE OG Taasera [facility] CPT-4: 86525 09/23/2013 ([id number]) OFFICE/OUTPATIENT VISIT EST Diagnosis: HYPERTENSION[ICD9: 401.9] Diagnosis: HYPERLIPIDEMIA NEC/NOS[ICD9: 272.4] Diagnosis: IMPAIRED FASTING GLUCOSE[ICD9: 790.21] Najma OG Taasera [facility] CPT-4: 61122 06/20/2013 ([id number]) OFFICE/OUTPATIENT VISIT EST Diagnosis: HYPERLIPIDEMIA NEC/NOS[ICD9: 272.4] Diagnosis: MALAISE AND FATIGUE[ICD9: 780.79] Diagnosis: ROUTINE MEDICAL EXAM[ICD9: V70.0] Diagnosis: HYPERTENSION[ICD9: 401.9] Diagnosis: IMPAIRED FASTING GLUCOSE[ICD9: 790.21] Najma Earle SHABNAMTg OG [employer] CPT-4: 68250 06/08/2013 ([id number]) OFFICE/OUTPATIENT VISIT EST Diagnosis: HYPERLIPIDEMIA NEC/NOS[ICD9: 272.4] Diagnosis: HYPERTENSION[ICD9: 401.9] Diagnosis: IMPAIRED FASTING GLUCOSE[ICD9: 790.21] Diagnosis: DIARRHEA[ICD9: 787.91] Najmaanaid MCARTHUR AemenaMatilde BRITTNI Stallings [employer] CPT-4: 10417 11/25/2012 ([id number]) OFFICE/OUTPATIENT VISIT EST Diagnosis: HYPERLIPIDEMIA NEC/NOS[ICD9: 272.4] Diagnosis: HYPERTENSION[ICD9: 401.9] Diagnosis: IMPAIRED FASTING GLUCOSE[ICD9: 790.21] Diagnosis: MALAISE AND FATIGUE[ICD9: 780.79] Najma Heverlane Jenkins [employer] CPT-4: 19371 11/11/2012 OFFICE/OUTPATIENT VISIT EST Diagnosis: Fungal dermatitis[ICD9: 111.9] Diagnosis: Dry skin dermatitis[ICD9: 692.89] Henrietta Jenkins Matilda OG [employer] CPT-4: 64927 08/27/2012 ([id number]) OFFICE/OUTPATIENT VISIT EST Diagnosis: HYPERTENSION[ICD9: 401.9] Diagnosis: HYPERLIPIDEMIA NEC/NOS[ICD9: 272.4] Najma MCCOY Matilda OG [employer] CPT-4: 74733 05/11/2012 ([id number]) OFFICE/OUTPATIENT VISIT EST Diagnosis: HYPERLIPIDEMIA NEC/NOS[ICD9: 272.4] Diagnosis: HYPERTENSION[ICD9: 401.9] Diagnosis: ROUTINE MEDICAL EXAM[ICD9: V70.0] Najma Jenkins Matilda OG [employer] CPT-4: 26204 05/04/2012 ([id number]) OFFICE/OUTPATIENT VISIT EST Diagnosis: HYPERTENSION[ICD9: 401.9] Diagnosis: HYPERLIPIDEMIA NEC/NOS[ICD9: 272.4] Diagnosis: IMPAIRED FASTING GLUCOSE[ICD9: 790.21] Najma KATHLEENNDER [facility] CPT-4: 79517 12/11/2011 ([id number]) OFFICE/OUTPATIENT VISIT EST Diagnosis: HYPERLIPIDEMIA NEC/NOS[ICD9: 272.4] Diagnosis: HYPERTENSION[ICD9: 401.9] Diagnosis: IMPAIRED FASTING GLUCOSE[ICD9: 790.21] Najma KATHLEENNDER [facility] CPT-4: 80833 10/29/2011 ([id number]) OFFICE/OUTPATIENT VISIT EST Diagnosis: HYPERTENSION[ICD9: 401.9] Najma KATHLEEN NDER [facility] CPT-4: 51887 08/14/2011 ([id number]) OFFICE/OUTPATIENT VISIT EST Diagnosis: HYPERTENSION[ICD9: 401.9] Diagnosis: IMPAIRED FASTING GLUCOSE[ICD9: 790.21] Najma KATHLEENNDER [facility] CPT-4: 42701 07/29/2011 ([id number]) OFFICE/OUTPATIENT VISIT EST Diagnosis: HYPERTENSION[ICD9: 401.9] Najma KATHLEEN NDER [facility] CPT-4: 12907 07/23/2011 ([id number]) OFFICE/OUTPATIENT VISIT EST Diagnosis: HYPERTENSION[ICD9: 401.9] Najma KATHLEEN NDER DO [facility] CPT-4: 61664 06/24/2011 OFFICE/OUTPATIENT VISIT EST Diagnosis: HYPERTENSION[ICD9: 401.9] Najma KATHLEEN NDER DO [facility] CPT-4: 27165 05/20/2011 OFFICE/OUTPATIENT VISIT EST Diagnosis: HYPERTENSION[ICD9: 401.9] Najma KATHLEEN NDER DO [facility] CPT-4: 41075 04/15/2011 OFFICE/OUTPATIENT VISIT EST Diagnosis: HYPERLIPIDEMIA NEC/NOS[ICD9: 272.4] Diagnosis: IMPAIRED FASTING GLUCOSE[ICD9: 790.21] Najma KATHLEENNDER [facility] CPT-4: 11861 03/18/2011 ([id number]) OFFICE/OUTPATIENT VISIT EST Najma GO DO [employer] CPT-4: 29675 07/30/2010 ([id number]) PREV VISIT, EST, AGE 40-64 Najma OG DO [employer] CPT-4: 51239 04/24/2010 Plan of Care Planned Activity Notes [...] : E11.65 06/02/2019 Appointment: Najma Og WPtel: [address] [place] [address] US FOLLOW UP 06/02/2019 Appointment: Najma Og WPtel: [address] [place] [address] US LAB 05/24/2019 Visit Diagnosis Plan: Essential [...] : E78.2 01/31/2019 Appointment: Najma Og WPtel: [address] [place] [address] US FOLLOW UP 01/31/2019 Appointment: Najma Og WPtel: [address] [place] [address] US LAB 01/26/2019 Appointment: Najma Og WPtel: [address] [place], [place] [phone] US LAB 09/30/2018 Visit Diagnosis Plan: Essential [...] : N19 08/19/2018 Appointment: Najma Og WPtel: [address] [place] [address] US FOLLOW UP 08/19/2018 Appointment: Najma Og WPtel: [address] [place], [place] [phone] US LAB 08/16/2018 Visit Diagnosis Plan: Type [...] : I10 05/10/2018 Appointment: Najma Og WPtel: [address] [place] [address] US FOLLOW UP 05/10/2018 Patient Education: Low Back Pain Exercises: Illustration Completed 05/10/2018 Patient Education: Low Back Pain Exercises Completed 05/10/2018 Appointment: Najma Og WPtel: [address] [place] [address] US LAB 05/05/2018 Visit Diagnosis Plan: Type [...] : E78.2 01/19/2018 Appointment: Najma Og WPtel: [address] [place] [address] FOLLOW UP 01/19/2018 Patient Education: Patient Medication Summary Completed 01/19/2018 Appointment: Najma Og WPtel: [address] [place] [address] LAB 01/13/2018 Patient Education: Patient Medication Summary [...] : E78.2 10/15/2017 Appointment: Najma Og WPtel: [address] [place], [place] [phone] US FOLLOW UP 10/15/2017 Patient Education: Patient Medication Summary Completed 10/15/2017 Appointment: Najma Og WPtel: [address] [place], [place] [phone] LAB 10/06/2017 Patient Education: Patient Medication Summary Completed 10/06/2017 Visit Diagnosis Plan: Actinic keratosis Discussion: Cr yotherapy as above ICD-9 : 702.0 ICD-10 : L57.0 04/23/2017 Appointment: Najma Og WPtel: [address] [place], [place] [phone] OFFICE SURGERY 04/23/2017 Patient Education: Patient Medication [...] : E11.9 03/11/2017 Appointment: Najma Og WPtel: [address] [place], [place] [phone] FO[facility] 03/11/2017 Patient Education: Patient Medication Summary Completed 03/11/2017 Appointment: Najma Og WPtel: [address] [place], [place] [phone] US LAB 03/05/2017 Patient Education: Patient Medication [...] : E78.2 07/09/2016 Appointment: Najma Og WPtel: [address] [place], [place] [phone] US 07/08 lm ~sl 07/09 confirmed~sl FOLLOW UP 08/2016 Patient Education: Patient Medication Summary Completed 07/09/2016 Appointment: Najma Og WPtel: [address] [place], [place] [phone] US LAB 06/16/2016 Patient Education: Patient Medication Summary Completed 06/16/2016 Visit Plan: Lab discussed [place] Lifestyle change for 3mos then check CMP, HbA1C in 3mos Has had flu and pneumonia shot 03/10/2016 Appointment: Najma Og WPtel: [address] [place], [place] [phone] 03/06 confirmed `sl FOLLOW UP 03/10/2016 Patient Education: Patient Medication Summary Completed 03/10/2016 Appointment: Najma Og WPtel: [address] [place], [place] [phone] US LAB 03/06/2016 Patient Education: Patient Medication Summary Completed 03/06/2016 Referral: Donavon Keller WPtel: [id number] [place] Referral Completed 10/22/2015 Visit Plan: Tick bite area looks much be tter Continue current rxs and close monitoring Follow up if any new symptoms or worsening appearance 09/12/2015 Appointment: Barbara Brower [address] [place] [phone] 09/10 confirmed~sl FOLLOW UP 09/12/2015 Patient Education: Patient Medication Summary Completed 09/12/2015 Visit Plan: Cover as above 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 topical steroids to calm down the inflammation(suspect most of redness is due to histamine response vs infection) Monitor closely Follow up in 2 days to recheck 09/10/2015 Appointment: Barbara Brower [address] [place], [place] [phone] ACUTE [facility] 09/10/2015 Patient Education: [...] consider shingles vaccine 09/06/2015 Appointment: Barbara Brower [address] [place] [address] FOLLOW UP 09/06/2015 Patient Education: Patient Medication Summary Completed 09/06/2015 Care Plan: Referral Order SNOMED-CT : [id number] Pending 09/06/2015 Appointment: Najma Og WPtel: [address] [place], [place] [phone] [place] LAB 08/31/2015 Patient Education: Patient Medication Summary Completed 08/31/2015 Visit Plan: Offered aggressive (KUB, IV fluids, Labs) vs. conservative (oral hydration, treat symptoms, watchful waiting). Elects for conservative + labs. CBC & CMP at [facility] Discussed needed oral hydration (preferably with sports drinks), 24 hour clear liquid followed by BRAT diet and advance as tolerated Discussed s/s of worsening, go to UC/ER. 06/29/2015 Appointment: Henrietta Lubin WPtel: [address] [place] [address] ACUTE ILLNESS 06/29/2015 Patient Education: Patient Medication Summary Completed 06/29/2015 Visit Plan: Lab discussed Will keep meds the same Discussed diet/exercise at length Cryotherapy as above to AKs of arms Flu and Prevnar 13 given Trial of revatio per patient request for ED--warned of no nitrates Recheck 4mos 01/17/2015 Appointment: Najma Og WPtel: [address] [place], [place] [phone] [place] 01/16 confirmed~sl FOLLOW UP 01/17/2015 Patient Education: Patient Medication Summary Completed 01/17/2015 Appointment: Najma Og WPtel: [address] [place], [place] [phone] US LAB 01/12/2015 Patient Education: Patient Medication Summary Completed 01/12/2015 Visit Plan: Lab discussed Start accuchec ks daily Cryotherapy as above 09/19/2014 Appointment: Najma Ogtel: [id number] [place], [place] [id number] 09/18 confirmed -mf FOLLOW UP 09/19/2014 Patient Education: Patient Medication Summary Completed 09/19/2014 Appointment: Najma Og WPtel: [address] [place], [place] [id number] US LAB 08/15/2014 Patient Education: Patient Medication Summary Completed 08/15/2014 Appointment: Najma Og WPtel: [address] [place], [place] [id number] ACUTE ILLNESS 12/14/2013 Patient Education: Patient Medication Summary Completed 12/14/2013 Visit Plan: Patient using tylenol prn pa in Discussed possible shingles shot for booster in 9-12mos 10/17/2013 Appointment: Najma Og WPtel: [address] [place] [address] FOLLOW UP 10/17/2013 Patient Education: Patient Medication Summary Completed 10/17/2013 Appointment: Jeanie Briceño WPtel: [address] [place] [address] ACUTE ILLNESS 09/23/2013 Patient Education: Patient Medication Summary Completed 09/23/2013 Appointment: Najma Og WPtel: [address] [place], [place] [id number] BP CHECK 07/22/2013 Patient Education: Patient Medication Summary Completed 07/22/2013 Visit Plan: Lab discussed Discussed swit arun amlodopine to beta slim to see if helps with tremor BP check in 1mo 06/20/2013 Appointment: Najma Og WPtel: [address] [place], [place] [phone] 06/17 no answer FOLLOW UP 06/20/2013 Patient Education: Patient Medication Summary Completed 06/20/2013 Appointment: Najma Og WPtel: [address] [place], [place] [phone] US LAB 06/08/2013 Patient Education: Patient Medication Summary Completed 06/08/2013 Visit Plan: BRAT diet and yogurt and gat orade Lab discussed Continue current meds Spot checks on BS 11/25/2012 Appointment: Najma Og WPtel: [address] [place], [place] [id number] 11/24 FOLLOW UP 11/25/2012 Patient Education: Patient Medication Summary Completed 11/25/2012 Appointment: Najma Og WPtel: [address] [place], [place] [id number] LAB 11/11/2012 Patient Education: Patient Medication Summary Completed 11/11/2012 Appointment: Henrietta Lubin WPtel: [address] [place] [address] [place], [place] [id number] WORK IN 08/27/2012 Patient Education: Patient Medication Summary Completed 08/27/2012 Visit Plan: Pt going to get new home BP moniter Continue crestor and restart fish oil and will check fasting lab in 6mos Lab results discussed 05/11/2012 Appointment: Najma Og WPtel: [address] [place], [place] [phone] 05/10 FOLLOW UP 05/11/2012 Patient Education: Patient Medication Summary Completed 05/11/2012 Appointment: Najma Og WPtel: [address] [place], [place] [id number] LAB 05/04/2012 Patient Education: Patient Medication Summary Completed 05/04/2012 Visit Plan: 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 and forehead 03/02/2012 Appointment: Najma Og WPtel: [address] [place], [place] [phone] 03/01 OFFICE SURGERY 03/02/2012 Patient Education: Patient Medication Summary Completed 03/02/2012 Visit Plan: Labs discussed--recheck lab end of Nov/first of Mar Continue current meds and continue to moniter BS daily and BP 1-2 times a week Plan on cryotherapy this fall so can wear longsleeves after procedure See urology 12/11/2011 Appointment: Najma Og WPtel: [address] [place], [place] [id number] FOLLOW UP 12/11/2011 Patient Education: Patient Medication Summary Completed 12/11/2011 Appointment: Najma Og WPtel: [address] [place], [place] [phone] [place] LAB 10/29/2011 Patient Education: Patient Medication Summary Completed 10/29/2011 Appointment: Najma Og WPtel: [address] [place], [place] [id number] BP CHECK 08/14/2011 Patient Education: Patient Medication Summary Completed 08/14/2011 Appointment: Najma Og WPtel: [address] [place], [place] [id number] ACUTE ILLNESS 07/29/2011 Patient Education: Patient Medication Summary Completed 07/29/2011 Appointment: Najma Og WPtel: [address] [place], [place] [id number] BP CHECK 07/23/2011 Patient Education: Patient Medication Summary Completed 07/23/2011 Appointment: Najma Og WPtel: [address] [place], [place] [phone] [place] BP CHECK 06/24/2011 Patient Education: Patient Medication Summary Completed 06/24/2011 Appointment: Najma Og WPtel: [address] [place], [place] [id number] BP CHECK 05/20/2011 Patient Education: Patient Medication Summary Completed 05/20/2011 Appointment: Najma Og WPtel: [address] [place] [address] [place] BP CHECK 04/29/2011 Patient Education: Patient Medication Summary Completed 04/29/2011 Appointment: Najma Og WPtel: [phone] [address] [place] BP CHECK 04/15/2011 Patient Education: Patient Medication Summary Completed 04/15/2011 Visit Plan: Continue current meds Add fi sh oil 1gm daily Glucometer given to use for accuchecks prn 03/18/2011 Appointment: Najma Ogtel: [address] [place], [place] [phone] [place] FOLLOW UP 03/18/2011 Patient Education: Patient Medication Summary Completed 03/18/2011 Appointment: Najma Og WPtel: [address] [place], [place] [phone] US LAB 03/14/2011 Patient Education: Patient Medication Summary Completed 03/14/2011 Appointment: Najma Og WPtel: [address] [place], [place] [phone] [place] LAB 11/11/2010 Appointment: Najma Og WPtel: [address] [place] [address] [place] UA 11/11/2010 Patient Education: Patient Medication Summary Completed 11/11/2010 Appointment: Najma Og WPtel: [address] [place], [place] [phone] [place] LAB 10/29/2010 Patient Education: Patient Medication Summary Completed 10/29/2010 Appointment: Najma Og WPtel: [address] [place], [place] [phone] [place] FOLLOW UP 07/30/2010 Patient Education: Patient Medication Summary Completed 07/30/2010 Appointment: Najma Og WPtel: [address] [place], [place] [phone] [place] LAB 07/23/2010 Patient Education: Patient Medication Summary Completed 07/23/2010 Appointment: Najma Og WPtel: [address] [place], [place] [phone] [place] LAB 04/26/2010 Patient Education: Patient Medication Summary Completed 04/26/2010 Visit Plan: Add PSA to lab Restart Crest or at 10mg daily Trial of Wellbutrin to aid in smoking cessation Check Lipids and LFTs in 3mos 04/24/2010 Appointment: Najma Og WPtel: [phone] [facility] FOLLOW UP 04/24/2010 Patient Education: Patient Medication Summary Completed 04/24/2010 Appointment: Najma Og WPtel: [address] [facility] US LAB 04/19/2010 Patient Education: Patient Medication Summary Completed 04/19/2010 Referral: Donavon Keller WPtel: [address] [facility] etaskr [id number] US Referral Completed Instructions Comment . Lab [...] conservative + labs. CBC & CMP at [facility] Discussed needed oral hydration (preferably with [...] Lab discussed Discussed switching amlodopine to beta silm to see if helps with tremor BP [...]
--- OUTSIDE RECORDS SUMMARY | 2019-10-14 22:44 | XMS REPORT | CCD ---
Author Author Inocente Og D.O. Organization [facility] Address [address] [place] [address] Phone Care Team Providers Care Iso Coordinator Name Role Phone Najma Og D.O. PP Unavailable CCM Unavailable Summary Purpose Interface Exchange Insurance Providers Payer name Policy type / Coverage type Covered republican ID Effective Begin Date Effective End Date [employer] MEDICARE Medicare Part B [id number] Unknown [facility] Medicare Part B [id number] Un known Family history Father Diagnosis Age At Onset Diabetes mellitus Type 2 Unknown Myocardial infarction Unknown Brother Diagnosis Age At Onset Diabetes mellitus Type 2 Unknown Mother Diagnosis Age At Onset Osteoarthritis Unknown Cerebrovascular disease Unknown Social History Social History Element Codes Description Effective Dates Tobacco history SNOMED CT: 514738360 Never smoker 12/21/2014 Marital status Unknown 07/30/2010 [...] ER 80 mg capsule,24 hr,extended release RxNorm: 293130 TAKE 1 CAPSULE BY MOUTH ONCE DAILY 06/10/2019 09/07/2019 Active Vitamin D3 25 mcg (1,000 unit) capsule RxNorm: 715048 1 Capsule(s) Oral two times a day 06/02/2019 No Stop Date Active turmeric 400 mg capsule RxNorm: 1 Capsule(s) Oral QD 06/02/2019 No Stop Date Active Fish Oil 120 mg-180 mg-500 mg capsule RxNorm: 2 Capsule(s) Ora l QD 06/02/2019 No Stop Date Active 16.2 mg-0.1037 mg-0.0194 mg tablet RxNorm: 4044148 1 Tablet(s) Oral four times a day as needed abdominal pain/diarrhea 06/02/2019 No Stop D ate Active fenofibrate micronized 134 mg capsule RxNorm: 390073 1 Capsule(s) Oral QD for triglycerides 04/14/2019 07/13/2019 Active amlodipine 5 mg tablet RxNorm: 746688 TAKE 1 TABLET BY MOUTH ON CE DAILY 03/22/2019 06/19/2019 Active metformin ER 500 mg tablet,extended release 24 hr RxNorm: 86 0975 TAKE 1 TABLET BY MOUTH ONCE DAILY 03/15/2019 06/09/2019 Inactive propranolol ER 80 mg capsule,24 hr,extended release RxNorm: 435148 TAKE 1 CAPSULE BY MOUTH ONCE DAILY 03/15/2019 06/09/2019 Inactive amlodipine 5 mg tablet RxNorm: 750942 1 Tablet(s) PO QD 12/27/2018 Inactive fenofibrate micronized 134 mg capsule RxNorm: 480559 TA KE 1 CAPSULE BY MOUTH ONCE DAILY FOR TRIGLYCERIDES 10/11/2018 04/13/2019 Inactive amlodipine 5 mg tablet RxNorm: 264542 1 Tablet(s) PO QD 09/30/2018 Inactive metformin ER 500 mg tablet,extended release 24 hr RxNorm: 86 0975 TAKE 1 TABLET BY MOUTH ONCE DAILY 09/21/2018 03/14/2019 Inactive propranolol ER 80 mg capsule,24 hr,extended release RxNorm: 969517 TAKE 1 CAPSULE BY MOUTH ONCE DAILY 09/21/2018 03/14/2019 Inactive amlodipine 5 mg tablet RxNorm: 177425 1 Tablet(s) PO QD 08/25/2018 Inactive amlodipine 5 mg tablet RxNorm: 671455 1 Tablet(s) PO QD 08/25/2018 Inactive lisinopril 40 mg tablet RxNorm: 288861 TAKE 1 TABLET BY MOUTH O NCE DAILY 07/21/2018 08/24/2018 Inactive fenofibrate micronized 134 mg capsule RxNorm: 932544 TA KE 1 CAPSULE BY MOUTH ONCE DAILY FOR TRIGLYCERIDES 07/12/2018 10/10/2018 Inactive propranolol ER 80 mg capsule,24 hr,extended release RxNorm: 748140 TAKE 1 CAPSULE BY MOUTH ONCE DAILY 06/21/2018 09/20/2018 Inactive lisinopril 40 mg tablet RxNorm: 963569 TAKE 1 TABLET BY MOUTH O NCE DAILY 04/26/2018 07/20/2018 Inactive metformin ER 500 mg tablet,extended release 24 hr RxNorm: 325624 1 Tablet(s) QD 03/31/2018 09/20/2018 Inactive lisinopril 40 mg tablet RxNorm: 862629 TAKE 1 TABLET BY MOUTH O NCE DAILY 01/28/2018 04/25/2018 Inactive Vitamin D3 5,000 unit tablet RxNorm: 414741 1 Tablet(s) PO QD 01/1908/18/2018 Inactive fenofibrate micronized 134 mg capsule RxNorm: 660544 1 Capsule(s) PO QD for triglycerides 01/19/2018 07/11/2018 Inactive metformin ER 500 mg tablet,extended release 24 hr RxNorm: 005611 1 Tablet(s) QD 12/31/2017 03/30/2018 Inactive metformin ER 500 mg tablet,extended release 24 hr RxNorm: 606151 Tablet(s) 12/30/2017 12/30/2017 Inactive propranolol ER 80 mg capsule,24 hr,extended release RxNorm: 055158 1 Capsule(s) PO QD 12/17/2017 06/14/2018 Inactive metformin ER 500 mg tablet,extended release 24 hr RxNorm: 86 0975 1 Tablet(s) PO QD DUE FOR LABS AND APPT 12/02/2017 12/30/2017 Inactive Crestor 10 mg tablet RxNorm: 862545 TAKE ONE TABLET BY MOUTH ON CE DAILY 11/01/2017 01/18/2018 Inactive lisinopril 40 mg tablet RxNorm: 311467 TAKE ONE TABLET BY MOUTH ONCE DAILY [...] ER 80 mg capsule,24 hr,extended release RxNorm: 709352 1 Capsule(s) PO QD DUE FOR APPT 09/08/2017 12/17/2017 Inactive Crestor 10 mg tablet RxNorm: 954800 1 Tablet(s) PO QD T CHELSI ONE TABLET BY MOUTH DAILY 03/11/2017 09/06/2017 Inactive propranolol ER 80 mg capsule,24 hr,extended release RxNorm: 046086 1 Capsule(s) PO QD TAKE ONE CAPSULE BY MOUTH DAILY - REPLACES AMLODOPINE 03/11/2017 09/08/2017 Inactive metformin ER 500 mg tablet,extended release 24 hr RxNorm: 86 0975 1 Tablet(s) PO QD 03/11/2017 09/08/2017 Inactive lisinopril 40 mg tablet RxNorm: 736147 1 Tablet(s) PO QD 03/11/2017 0 09/06/2017 Inactive lisinopril 40 mg tablet RxNorm: 162890 1 Tablet(s) PO QD 02/16/2017 1 05/11/2016 Inactive metformin ER 500 mg tablet,extended release 24 hr RxNorm: 86 0975 1 Tablet(s) PO QD Due for labs and follow up before further refills 02/16/2017 017 Inactive propranolol ER 80 mg capsule,24 hr,extended release RxNorm: 080365 Capsule(s) TAKE ONE CAPSULE BY MOUTH DAILY - REPLACES AMLODOPINE 11/19/20162016 Inactive lisinopril 40 mg tablet RxNorm: 662393 1 Tablet(s) PO QD 11/17/2016 1 04/18/2016 Inactive metformin ER 500 mg tablet,extended release 24 hr RxNorm: 86 0975 1 Tablet(s) PO QD 11/17/2016 02/16/2017 Inactive lisinopril 40 mg tablet RxNorm: 905026 1 Tablet(s) PO Q D TAKE ONE TABLET BY MOUTH DAILY 08/19/2016 11/17/2016 Inactive metformin ER 500 mg tablet,extended release 24 hr RxNorm: 86 0975 Tablet(s) TAKE ONE TABLET BY MOUTH DAILY 08/19/2016 11/16/2016 Inactive propranolol ER 80 mg capsule,24 hr,extended release RxNorm: 380224 Capsule(s) TAKE ONE CAPSULE BY MOUTH DAILY - REPLACES AMLODOPINE 08/19/20162016 Inactive Crestor 10 mg tablet RxNorm: 701380 TAKE ONE TABLET BY MOUTH DAILY 06/16/2016 03/10/2017 Inactive lisinopril 40 mg tablet RxNorm: 383200 1 Tablet(s) PO Q D TAKE ONE TABLET BY MOUTH DAILY 05/23/2016 08/18/2016 Inactive metformin ER 500 mg tablet,extended release 24 hr RxNorm: 86 0975 TAKE ONE TABLET BY MOUTH DAILY 05/23/2016 08/19/2016 Inactive propranolol ER 80 mg capsule,24 hr,extended release RxNorm: 596529 TAKE ONE CAPSULE BY MOUTH DAILY - REPLACES AMLODOPINE 05/23/2016 08/19/2016 [place] [facility] Crestor 10 mg tablet RxNorm: 270370 TAKE ONE TABLET BY MOUTH DAILY 03/31/2016 06/15/2016 Inactive metformin ER 500 mg tablet,extended release 24 hr RxNorm: 86 0975 TAKE ONE TABLET BY MOUTH DAILY 02/19/2016 05/22/2016 Inactive propranolol ER 80 mg capsule,24 hr,extended release RxNorm: 174056 TAKE ONE CAPSULE BY MOUTH DAILY - REPLACES AMLODOPINE 11/23/2015 05/20/2016 [place] [facility]ive metformin ER 500 mg tablet,extended release 24 hr RxNorm: 86 0975 TAKE ONE TABLET BY MOUTH DAILY 11/08/2015 02/05/2016 Inactive Bactroban Nasal 2 % ointment RxNorm: 101113 Apply topic ally to affected area twice daily 09/10/2015 03/09/2016 Inactive Vibramycin 100 mg capsule RxNorm: 241675 1 Capsule(s) PO BID 201509/23/2015 Inactive lisinopril 40 mg tablet RxNorm: 498746 1 Tablet(s) PO Q D TAKE ONE TABLET BY MOUTH DAILY 08/27/2015 02/22/2016 Inactive metformin ER 500 mg tablet,extended release 24 hr RxNorm: 86 0975 TAKE ONE TABLET BY MOUTH DAILY 08/06/2015 11/03/2015 Inactive Levsin/SL 0.125 mg sublingual tablet RxNorm: 2510107 1 T ablet(s) SL Q4H as needed for stomach cramps 06/29/2015 07/03/2015 Inactive lisinopril 40 mg tablet RxNorm: 184420 Tablet(s) TAKE ONE TABLE T BY MOUTH DAILY 06/07/2015 08/26/2015 Inactive propranolol ER 80 mg capsule,24 hr,extended release RxNorm: 435654 TAKE ONE CAPSULE BY MOUTH DAILY - REPLACES AMLODOPINE 05/30/2015 11/22/2015 [place] ctive metformin ER 500 mg tablet,extended release 24 hr RxNorm: 86 0975 1 Tablet(s) PO QD 05/10/2015 08/05/2015 Inactive Crestor 10 mg tablet RxNorm: 281256 TAKE ONE TABLET BY MOUTH DAILY 04/18/2015 10/14/2015 Inactive metformin ER 500 mg tablet,extended release 24 hr RxNorm: 86 0975 TAKE ONE TABLET BY MOUTH DAILY 02/07/2015 05/10/2015 Inactive sildenafil 20 mg tablet RxNorm: 963426 1 Tablet(s) PO QD 01/17/2015 1 04/17/2014 Inactive propranolol ER 80 mg capsule,24 hr,extended release RxNorm: 666269 1 Capsule(s) PO QD replaces amlodopine 11/28/2014 05/26/2015 Inactive [[facility] -- BIN:[id number], PCN: [id number], Group: [id number], ID# [id number], Process claim through [employer], for questions: . THIS IS NOT INSURANCE.] lisinopril 40 mg tablet RxNorm: 442061 TAKE ONE TABLET BY MOUTH DAILY 11/16/2014 06/07/2015 Inactive lisinopril 40 mg tablet RxNorm: 459798 1 Tablet(s) PO QD 08/21/2014 0 11/15/2014 Inactive [AttnRPh: Saving apply/adjudicate RxGRP: [id number] RxBIN:[id number] RxPCN: ID#:[id number]] lisinopril 40 mg tablet RxNorm: 426067 1 Tablet(s) PO Q D NEEDS SEEN FOR APPOINTMENT 07/14/2014 08/21/2014 Inactive [AttnRPh: Saving apply/adjudicate RxGRP:SG20 RxBIN:[id number] RxPCN:HT ID#:[id number]] Crestor 10 mg tablet RxNorm: 605485 TAKE ONE TABLET BY MOUTH 07/06/2014 01/01/2015 Inactive metformin ER 500 mg tablet,extended release 24 hr RxNorm: 86 0975 1 Tablet(s) QD TAKE ONE TABLET BY MOUTH ONCE A DAY 06/09/2014 12/05/2014 Inactive propranolol ER 80 mg capsule,24 hr,extended release RxNorm: 178061 1 Capsule(s) PO QD replaces amlodopine 06/05/2014 11/28/2014 Inactive [[facility] -- BIN:[id number], PCN: [id number], Group: [id number], ID# [id number], Process claim through [employer], for questions: . THIS IS NOT INSURANCE.] propranolol ER 80 mg capsule,24 hr,extended release RxNorm: 193389 1 Capsule(s) PO QD replaces amlodopine 03/07/2014 06/05/2014 Inactive [[facility] -- BIN:418150, PCN: [id number], Group: [id number], ID# [id number], Process claim through [employer], for questions: . THIS IS NOT INSURANCE.] metformin ER 500 mg tablet,extended release 24 hr RxNorm: 86 0975 TAKE ONE TABLET BY MOUTH ONCE A DAY 12/15/2013 06/09/2014 Inactive propranolol ER 80 mg capsule,24 hr,extended release RxNorm: 339791 1 Capsule(s) PO QD replaces amlodopine 12/09/2013 03/07/2014 Inactive [[facility] -- BIN:458325, PCN: [id number], Group: [id number], ID# [id number], Process claim through [employer], for questions: . THIS IS NOT INSURANCE.] acyclovir 800 mg tablet RxNorm: 785622 1 Tablet(s) PO QID 09/23/2013 09/29/2013 Inactive gabapentin 300 mg capsule RxNorm: 074136 1 Capsule(s) PO BID 201310/07/2013 Inactive metformin ER 500 mg tablet,extended release 24 hr RxNorm: 86 0975 1 Tablet(s) PO QD 09/19/2013 12/14/2013 Inactive propranolol ER 80 mg capsule,24 hr,extended release RxNorm: 403151 1 Capsule(s) PO QD replaces amlodopine 09/15/2013 12/09/2013 Inactive metformin ER 500 mg 24 hr tablet,extended release RxNorm: 86 0975 1 Tablet(s) PO QD 09/15/2013 09/18/2013 Inactive lisinopril 40 mg tablet RxNorm: 776136 1 Tablet(s) PO QD 07/19/2013 0 07/14/2014 Inactive Crestor 10 mg tablet RxNorm: 381363 Tablet(s) PO TAKE O NE TABLET BY MOUTH EVERY DAY 07/12/2013 07/05/2014 Inactive propranolol ER 80 mg capsule,24 hr,extended release RxNorm: 037340 1 Capsule(s) PO QD replaces amlodopine 06/20/2013 09/15/2013 Inactive triamcinolone acetonide 0.1 % topical ointment RxNorm: 48336 36 Application TOP BID 06/20/2013 06/26/2013 Inactive Crestor 10 mg tablet RxNorm: 869294 1 Tablet(s) PO QD 04/18/201310/2013 Inactive Viagra 100 mg tablet RxNorm: 965087 1 Tablet(s) PO as directed 01/0508/18/2018 Inactive TAKE ONE TABLET BY MOUTH DIRECTED Crestor 10 mg tablet RxNorm: 708414 1 Tablet(s) PO QD 01/17/201304/06 Inactive metformin ER 500 mg tablet,extended release 24 hr RxNorm: 86 0975 1 Tablet(s) PO QD TAKE ONE TABLET BY MOUTH EVERY DAY 12/23/2012 09/15/2013 Inactive triamcinolone acetonide 0.1 % topical ointment RxNorm: 87840 36 Application TOP BID 08/27/2012 09/02/2012 Inactive ketoconazole 2 % topical cream RxNorm: 902361 1 Application TOP QAM 08/27/2012 09/02/2012 Inactive lisinopril 40 mg tablet RxNorm: 180584 1 Tablet(s) PO QD 07/21/2012 0 07/15/2013 Inactive Crestor 10 mg tablet RxNorm: 425727 1 Tablet(s) PO QD 07/21/201210/04 Inactive amlodipine 10 mg tablet RxNorm: 543915 1 Tablet(s) PO QHS 07/21/2012 07/15/2013 Inactive metformin ER 500 mg tablet,extended release 24 hr RxNorm: 86 0977 Tablet(s) PO TAKE ONE TABLET BY MOUTH EVERY DAY 03/31/2012 12/22/2012 Inactive lisinopril 40 mg tablet RxNorm: 934475 1 Tablet(s) PO QD 07/29/2011 0 07/20/2012 Inactive amlodipine 10 mg tablet RxNorm: 304095 1 Tablet(s) PO QHS 07/29/2011 07/20/2012 Inactive amlodipine 10 mg Tab RxNorm: 155141 1 Tablet(s) PO QHS 07/29/2011 Inactive Viagra 100 mg tablet RxNorm: 130367 1 Tablet(s) PO as directed 07/0601/24/2013 Inactive TAKE ONE TABLET BY MOUTH DIRECTED Crestor 10 mg tablet RxNorm: 944103 1 Tablet(s) PO QD 07/29/201107/05 Inactive Norvasc 5 mg Tab RxNorm: 052997 1 Tablet(s) PO QD 07/16/2011 07/28/19 12 Inactive Norvasc 5 mg Tab RxNorm: 984119 1 Tablet(s) PO QD 06/26/2011 07/15/19 12 Inactive lisinopril 40 mg Tab RxNorm: 719686 1 Tablet(s) PO QD 05/13/201107/06 Inactive metformin ER 500 mg tablet,extended release 24 hr RxNorm: 86 0977 1 Tablet(s) PO QD 03/18/2011 07/28/2011 Inactive Crestor 10 mg Tab RxNorm: 221163 1 Tablet(s) PO QHS 01/27/20112011 Inactive metformin ER 500 mg 24 hr Tab RxNorm: 250439 1 Tablet(s) PO QD 11/0403/17/2011 Inactive Viagra 100 mg Tab RxNorm: 591633 Tablet(s) PO TAKE ON E TABLET BY MOUTH DIRECTED 08/26/2010 07/28/2011 Inactive metformin ER 500 mg 24 hr Tab RxNorm: 167381 1 Tablet(s) PO QD 07/0611/18/2010 Inactive Crestor 10 mg Tab RxNorm: 997645 1 Tablet(s) PO QHS 07/30/20102010 Inactive Crestor 10 mg Tab RxNorm: 833123 1 Tablet(s) PO QHS 05/20/20102010 Inactive Wellbutrin SR 150 mg Tab RxNorm: 612334 1 Tablet(s) PO QAM 04/24/19 11 07/22/2010 Inactive Multivitamin And Mineral tablet RxNorm: 1 Tablet(s) PO QD No Start Date Active FreeStyle Lite Strips RxNorm: 1 Unit Dose Miscel laneous AC & HS check blood sugar AC and HS No Start Date Active Co Q-10 200 mg capsule RxNorm: 588797 1 Capsule(s) PO QD No Start Date Active lancets RxNorm: 1 Milliliter(s) Miscellaneous AC & HS No Start Robert e Active Vitamin D3 4,000 unit capsule RxNorm: 2845900 1 Capsule(s) PO QD No Start Date 07/08/2016 Inactive Fish Oil 360 mg-1,200 mg capsule RxNorm: 952756 2 Capsule(s) PO QD No Start Date 01/30/2019 Inactive hydrocodone 5 mg-acetaminophen 325 mg tablet RxNorm: 574608 1 Tablet(s) PO Q4H as needed for severe pain No Start Date 12/30/2015 Inactive Xanax 0.25 mg tablet RxNorm: 585666 1/2 Tablet(s) PO PRN for se andrea stress No Start Date 07/08/2016 Inactive lisinopril 40 mg Tab RxNorm: 687550 1 Tablet(s) PO QD No Start Date 0 05/12/2011 Inactive Fish Oil 1,000 mg capsule RxNorm: 1 Capsule(s) PO QD No Start Date 09/18/2014 Inactive naproxen 500 mg Tab RxNorm: 766532 1 Tablet(s) PO BID No Start Date 0 07/28/2011 Inactive aspirin 81 mg tablet RxNorm: 611169 1 Tablet(s) PO QD No Start Date 0 05/09/2018 Inactive Crestor 10 mg Tab RxNorm: 902451 1 Tablet(s) PO QD No Start Date 07/06 Inactive Crestor 5 mg tablet RxNorm: 692899 1 Tablet(s) PO QD No Start Date Inactive Fish Oil Oral RxNorm: Oral No Start Date 09/18/2014 Inactive Viagra 100 mg Tab RxNorm: 639000 1 Tablet(s) PO as directed No Star [...] Date S vice Location GLYCOSYLATED HEMOGLOBIN TEST 85261 Hgb A1c 41793-2 6.7 % 0 05/24/2019 Unknown COMPREHENSIVE METABOLIC 97588 AST 21 U/L 2019 Unknown COMPREHENSIVE METABOLIC 71988 ALT 26 U/L 2019 Unknown COMPREHENSIVE METABOLIC 43389 BUN 14 mg/dL 2019 Unknown COMPREHENSIVE METABOLIC 13058 ALBUMIN 4.4 g/dL 2019 Unknown COMPREHENSIVE METABOLIC 20353 CHLORIDE 102 mmol/L 05/24 Unknown COMPREHENSIVE METABOLIC 65513 Bili Total 0.4 mg/dL 05/24 Unknown COMPREHENSIVE METABOLIC 00034 ALK PHOS 55 U/L 2019 Unknown COMPREHENSIVE METABOLIC 55204 SODIUM 139 mmol/L 05/24 Unknown COMPREHENSIVE METABOLIC 16136 CREATININE 1.28 mg/dL 05/07 Unknown COMPREHENSIVE METABOLIC 08323 CALCIUM 9.7 mg/dL 2019 Unknown COMPREHENSIVE METABOLIC 22202 POTASSIUM 4.7 mmol/L 05/24 Unknown COMPREHENSIVE METABOLIC 28473 Total Protein 6.8 g/dL Unknown COMPREHENSIVE METABOLIC 15919 Glucose 130 mg/dL 2019 Unknown COMPREHENSIVE METABOLIC 72865 Bicarbonate 29 mmol/L 05/07 Unknown COMPREHENSIVE METABOLIC 21519 AGAP 8 mmol/L 2019 Unknown MEAN GLUC Calc Mean Gluc 146 mg/dL 05/24/2019 Unkn own GFR CALC [id number] GFR Non Afr Amr 56 mL/min 05/24/2019 Unk nown GFR CALC [id number] GFR Afr Amr >60 mL/min 05/24/2019 Unknow n MEAN GLUC Calc Mean Gluc 140 mg/dL 01/26/2019 Unkn own GLYCOSYLATED HEMOGLOBIN TEST 54599 Hgb A1c 99633-4 6.5 % 1 Unknown COMPREHENSIVE METABOLIC 80772 AST 17 U/L 2018 Unknown COMPREHENSIVE METABOLIC 50980 ALT 19 U/L 2018 Unknown COMPREHENSIVE METABOLIC 94338 BUN 19 mg/dL 2018 Unknown COMPREHENSIVE METABOLIC 50066 ALBUMIN 4.3 g/dL 2018 Unknown COMPREHENSIVE METABOLIC 06037 CHLORIDE 103 mmol/L 01/26 Unknown COMPREHENSIVE METABOLIC 27940 Bili Total 0.6 mg/dL 01/26 Unknown COMPREHENSIVE METABOLIC 32432 ALK PHOS 60 U/L 2018 Unknown COMPREHENSIVE METABOLIC 88801 SODIUM 140 mmol/L 01/26 Unknown COMPREHENSIVE METABOLIC 38080 CREATININE 1.21 mg/dL 01/05 Unknown COMPREHENSIVE METABOLIC 87931 CALCIUM 9.6 mg/dL 2018 Unknown COMPREHENSIVE METABOLIC 29518 POTASSIUM 4.5 mmol/L 01/26 Unknown COMPREHENSIVE METABOLIC 71027 Total Protein 6.7 g/dL Unknown COMPREHENSIVE METABOLIC 17188 Glucose 111 mg/dL 2018 Unknown COMPREHENSIVE METABOLIC 90861 Bicarbonate 28 mmol/L 01/05 Unknown COMPREHENSIVE METABOLIC 93312 AGAP 9 mmol/L 2018 Unknown COMPLETE BLOOD COUNT 5100274 WBC 10.7 10e9/L 019 Unknown COMPLETE BLOOD COUNT [id number] RBC 4.38 10e12/L 2018 Unknown COMPLETE BLOOD COUNT [id number] HEMOGLOBIN 13.7 g/dL 01/27/20 19 Unknown COMPLETE BLOOD COUNT [id number] HEMATOCRIT 42.0 % 01/27/20 19 Unknown COMPLETE BLOOD COUNT [id number] MCV 95.9 fL 9 Unknown COMPLETE BLOOD COUNT 4617581 MCH 31.3 pg 9 Unknown COMPLETE BLOOD COUNT 8104979 MCHC 32.6 g/dL 9 Unknown COMPLETE BLOOD COUNT 2036036 PLATELET COUNT 232 10e9/L Unknown COMPLETE BLOOD COUNT 6894354 Mean Plt Volume 11.4 fL Unknown COMPLETE BLOOD COUNT 9512635 Neut Auto 68.7 % 9 Unknown COMPLETE BLOOD COUNT [id number] Lymph Auto 21.2 % 01/27/20 19 Unknown COMPLETE BLOOD COUNT [id number] [place] Auto 8.1 % 9 Unknown COMPLETE BLOOD COUNT [id number] RDW 14.1 % 9 Unknown COMPLETE BLOOD COUNT 0242903 Eos Auto 1.8 % 9 Unknown COMPLETE BLOOD COUNT 0072932 Baso Auto 0.2 % 9 Unknown COMPLETE BLOOD COUNT 7102974 Neutrophil Abs 7.35 10e9/L Unknown COMPLETE BLOOD COUNT 1993222 Lymphocyte Abs 2.27 10e9/L Unknown COMPLETE BLOOD COUNT [id number] Monocyte Abs 0.87 10e9/L 01/05 Unknown COMPLETE BLOOD COUNT 0755109 Eosinophil Abs 0.19 10e9/L Unknown COMPLETE BLOOD COUNT [id number] RDW-SD 47.7 fL 9 Unknown COMPLETE BLOOD COUNT [id number] Basophil Abs 0.02 10e9/L 01/05 Unknown GFR CALC 6922548 GFR Non Afr Amr 59 mL/min 01/26/2019 Unk nown GFR CALC [id number] GFR Afr Amr >60 mL/min 01/26/2019 Unknow n LIPID GROUP 28927 Cholesterol 215 mg/dL 01/26/2019 Unkno wn LIPID GROUP 45842 Triglyceride 221 mg/dL 01/26/2019 Unkn own LIP[facility] GROUP 34206 HDL CHOLESTEROL 41 mg/dL 01/26/2019 U nknown LIPID GROUP 96655 Chol/HDL Ratio 5.24 ratio 01/26/2019 U nknown LIPID GROUP 10585 NON-HDL Chol 174 mg/dL 01/26/2019 Unkn own LIP[facility] GROUP 55544 LDL Cholesterol 130 mg/dL 01/26/2019 [place] [address] Glucose 104 mg/dL 09/30 [place] [address] CREATININE 1.18 mg/dL [place] [address] BUN 19 mg/dL 09/30 [place] [address] SODIUM 139 mmol/L 09/05 [place] [address] POTASSIUM 4.1 mmol/L 09/05 [place] [address] CHLORIDE 105 mmol/L 09/05 [place] [address] Bicarbonate 26 mmol/L [place] [address] AGAP 8 mmol/L 09/30 [place] [address] CALCIUM 9.3 mg/dL 09/30 Unknown GFR CALC 7866793 GFR Non Afr Amr >60 mL/min 09/30/2018 Un known GFR CALC 0673253 GFR Afr Amr >60 mL/min 09/30/2018 Unknow n MICROALBUMIN URINE RANDOM 21761 U Microalbumin <2.0 mg/L 08/19/2018 Unknown MICROALBUMIN URINE RANDOM 08894 U Creatinine 66 mg/dL 0 08/19/2018 Unknown MICROALBUMIN URINE RANDOM 28585 ALB/CR Ratio <3.0 mg/gCR 08/19/2018 Unknown COMPREHENSIVE METABOLIC 22974 AST 21 U/L 2018 Unknown COMPREHENSIVE METABOLIC 50613 ALT 20 U/L 2018 Unknown COMPREHENSIVE METABOLIC 18937 BUN 31 mg/dL 2018 Unknown COMPREHENSIVE METABOLIC 72123 ALBUMIN 4.4 g/dL 2018 Unknown COMPREHENSIVE METABOLIC 43115 CHLORIDE 105 mmol/L 08/16 Unknown COMPREHENSIVE METABOLIC 23785 Bili Total 0.5 mg/dL 08/16 Unknown COMPREHENSIVE METABOLIC 12844 ALK PHOS 40 U/L 2018 Unknown COMPREHENSIVE METABOLIC 77207 SODIUM 140 mmol/L 08/16 Unknown COMPREHENSIVE METABOLIC 10417 CREATININE 1.45 mg/dL 08/04 Unknown COMPREHENSIVE METABOLIC 45921 CALCIUM 9.8 mg/dL 2018 Unknown COMPREHENSIVE METABOLIC 14307 POTASSIUM 5.1 mmol/L 08/16 Unknown COMPREHENSIVE METABOLIC 09900 Total Protein 6.9 g/dL Unknown COMPREHENSIVE METABOLIC 98522 Glucose 110 mg/dL 2018 Unknown COMPREHENSIVE METABOLIC 98812 Bicarbonate 25 mmol/L 08/04 Unknown COMPREHENSIVE METABOLIC 54226 AGAP 10 mmol/L 2018 Unknown GFR CALC 7193893 GFR Non Afr Amr 48 mL/min 08/16/2018 Unk nown GFR CALC 9455181 GFR Afr Amr 58 mL/min 08/16/2018 Unknown GLYCOSYLATED HEMOGLOBIN TEST 14260 Hgb A1c 79950-5 5.9 % 0 08/16/2018 Unknown LIPID GROUP 01509 Cholesterol 226 mg/dL 08/16/2018 Unkno wn LIP[facility] GROUP 60188 Triglyceride 335 mg/dL 08/16/2018 Unkn own [facility] GROUP 34783 HDL CHOLESTEROL 32 mg/dL 08/16/2018 U nknown L[facility] GROUP 99223 Chol/HDL Ratio 7.06 ratio 08/16/2018 [facility] 68954 NON-HDL Chol 194 mg/dL 08/16/2018 Unkn own [facility] GROUP 84490 LDL Cholesterol 127 mg/dL 08/16/2018 U [facility] THYROID STIMULATING HORMONE 77175 TSH 2.475 uIU/mL 08/16/2018 Unknown COMPLETE BLOOD COUNT 9817450 WBC 7.5 10e9/L 08/17/19 19 Unknown COMPLETE BLOOD COUNT 9735869 RBC 4.09 10e12/L 2018 Unknown COMPLETE BLOOD COUNT 4548190 HEMOGLOBIN 12.9 g/dL 08/17/19 19 Unknown COMPLETE BLOOD COUNT 9729829 HEMATOCRIT 40.0 % 08/17/19 19 Unknown COMPLETE BLOOD COUNT 7021324 MCV 97.8 fL 9 Unknown COMPLETE BLOOD COUNT 1594491 MCH 31.5 pg 9 Unknown COMPLETE BLOOD COUNT 1579447 MCHC 32.3 g/dL 9 Unknown COMPLETE BLOOD COUNT 3986032 PLATELET COUNT 258 10e9/L Unknown COMPLETE BLOOD COUNT 9145297 Mean Plt Volume 11.4 fL Unknown COMPLETE BLOOD COUNT 0139194 Neut Auto 62.9 % 9 Unknown COMPLETE BLOOD COUNT 7419944 Lymph Auto 27.3 % 08/17/19 19 Unknown COMPLETE BLOOD COUNT 9239002 [place] Auto 8.2 % 9 Unknown COMPLETE BLOOD COUNT 4778849 RDW 13.3 % 9 Unknown COMPLETE BLOOD COUNT 3995075 Eos Auto 1.5 % 9 Unknown COMPLETE BLOOD COUNT 2131157 Baso Auto 0.1 % 9 Unknown COMPLETE BLOOD COUNT 4587468 Neutrophil Abs 4.72 10e9/L Unknown COMPLETE BLOOD COUNT 8531178 Lymphocyte Abs 2.05 10e9/L Unknown COMPLETE BLOOD COUNT 7196171 Monocyte Abs 0.62 10e9/L 08/04 Unknown COMPLETE BLOOD COUNT 0698802 Eosinophil Abs 0.11 10e9/L Unknown COMPLETE BLOOD COUNT 9817335 RDW-SD 46.7 fL 9 Unknown COMPLETE BLOOD COUNT [id number] Basophil Abs 0.01 10e9/L 08/04 Unknown MEAN GLUC 6244315 Calc Mean Gluc 123 mg/dL 08/16/2018 Unkn own LIPID GROUP 07080 Cholesterol 212 mg/dL 05/05/2018 Unkno wn LIPID GROUP 20927 Triglyceride 271 mg/dL 05/05/2018 Unkn own LIPID GROUP 44931 HDL CHOLESTEROL 38 mg/dL 05/05/2018 U nknown LIPID GROUP 18673 Chol/HDL Ratio 5.58 ratio 05/05/2018 U nknown LIPID GROUP 40000 NON-HDL Chol 174 mg/dL 05/05/2018 Unkn own LIPID GROUP 78287 LDL Cholesterol 120 mg/dL 05/05/2018 U nknown GFR CALC 2040756 GFR Non Afr Amr 49 mL/min 05/05/2018 Unk nown GFR CALC [id number] GFR Afr Amr 59 mL/min 05/05/2018 Unknown GLYCOSYLATED HEMOGLOBIN TEST 96352 Hgb A1c 79751-8 6.0 % 0 05/05/2018 Unknown MEAN GLUC 1887676 Calc Mean Gluc 126 mg/dL 05/05/2018 Unkn own COMPREHENSIVE METABOLIC 52164 AST 18 U/L 2018 Unknown COMPREHENSIVE METABOLIC 39517 ALT 23 U/L 2018 Unknown COMPREHENSIVE METABOLIC 33941 BUN 30 mg/dL 2018 Unknown COMPREHENSIVE METABOLIC 89238 ALBUMIN 4.3 g/dL 2018 Unknown COMPREHENSIVE METABOLIC 26632 CHLORIDE 106 mmol/L 05/05 Unknown COMPREHENSIVE METABOLIC 38716 Bili Total 0.4 mg/dL 05/05 Unknown COMPREHENSIVE METABOLIC 96863 ALK PHOS 39 U/L 2018 Unknown COMPREHENSIVE METABOLIC 51618 SODIUM 139 mmol/L 05/05 Unknown COMPREHENSIVE METABOLIC 76379 CREATININE 1.44 mg/dL 04/08 Unknown COMPREHENSIVE METABOLIC 67721 CALCIUM 9.6 mg/dL 2018 Unknown COMPREHENSIVE METABOLIC 83541 POTASSIUM 4.7 mmol/L 05/05 Unknown COMPREHENSIVE METABOLIC 85182 Total Protein 6.6 g/dL Unknown COMPREHENSIVE METABOLIC 68294 Glucose 112 mg/dL 2018 Unknown COMPREHENSIVE METABOLIC 82838 Bicarbonate 28 mmol/L 04/08 Unknown COMPREHENSIVE METABOLIC 56900 AGAP 5 mmol/L 2018 Unknown THYROID STIMULATING HORMONE 09439 TSH 3.725 uIU/mL 05/05/2018 Unknown COMPLETE BLOOD COUNT [id number] WBC 8.2 10e9/L 05/05/19 19 Unknown COMPLETE BLOOD COUNT [id number] RBC 4.02 10e12/L 2018 Unknown COMPLETE BLOOD COUNT [id number] HEMOGLOBIN 12.7 g/dL 05/05/19 19 Unknown COMPLETE BLOOD COUNT [id number] HEMATOCRIT 39.3 % 05/05/19 19 Unknown COMPLETE BLOOD COUNT [id number] MCV 97.8 fL 9 Unknown COMPLETE BLOOD COUNT 7286337 MCH 31.6 pg 9 Unknown COMPLETE BLOOD COUNT 7150186 MCHC 32.3 g/dL 9 Unknown COMPLETE BLOOD COUNT 1476413 PLATELET COUNT 213 10e9/L Unknown COMPLETE BLOOD COUNT 1351447 Mean Plt Volume 11.7 fL Unknown COMPLETE BLOOD COUNT [id number] Neut Auto 55.7 % 9 Unknown COMPLETE BLOOD COUNT [id number] Lymph Auto 33.2 % 05/05/19 19 Unknown COMPLETE BLOOD COUNT 0605441 [place] Auto 8.5 % 9 Unknown COMPLETE BLOOD COUNT [id number] RDW 13.9 % 9 Unknown COMPLETE BLOOD COUNT 1400502 Eos Auto 2.4 % 9 Unknown COMPLETE BLOOD COUNT 9387872 Baso Auto 0.2 % 9 Unknown COMPLETE BLOOD COUNT [id number] Neutrophil Abs 4.57 10e9/L Unknown COMPLETE BLOOD COUNT [id number] Lymphocyte Abs 2.72 10e9/L Unknown COMPLETE BLOOD COUNT [id number] Monocyte Abs 0.70 10e9/L 04/08 Unknown COMPLETE BLOOD COUNT [id number] Eosinophil Abs 0.20 10e9/L Unknown COMPLETE BLOOD COUNT [id number] RDW-SD 48.8 fL 9 Unknown COMPLETE BLOOD COUNT [id number] Basophil Abs 0.02 10e9/L 04/08 Unknown MICROALBUMIN URINE RANDOM 00318 U Microalbumin 19.3 mg/L 01/19/2018 Unknown MICROALBUMIN URINE RANDOM 29658 U Creatinine 96 mg/dL 1 Unknown MICROALBUMIN URINE RANDOM 64653 ALB/CR Ratio 20.1 mg/gCR 01/19/2018 Unknown LIPID GROUP 79297 Cholesterol 173 mg/dL 01/13/2018 Unkno wn LIPID GROUP 71807 Triglyceride 386 mg/dL 01/13/2018 Unkn own LIPID GROUP 29067 HDL CHOLESTEROL 37 mg/dL 01/13/2018 U nknown LIPID GROUP 18677 Chol/HDL Ratio 4.68 ratio 01/13/2018 U nknown LIPID GROUP 05957 NON-HDL Chol 136 mg/dL 01/13/2018 Unkn own LIPID GROUP 76860 LDL Cholesterol 59 mg/dL 01/13/2018 U nknown COMPLETE BLOOD COUNT [id number] WBC TNP:Client Request 01/13/2018 Unknown COMPLETE BLOOD COUNT [id number] RBC TNP:Client Request 01/13/2018 Unknown COMPLETE BLOOD COUNT [id number] HEMOGLOBIN TNP:Client Request 01/13/2018 Unknown COMPLETE BLOOD COUNT [id number] HEMATOCRIT TNP:Client Request 01/13/2018 Unknown COMPLETE BLOOD COUNT [id number] MCV TNP:Client Request 01/13/2018 Unknown COMPLETE BLOOD COUNT 6231171 MCH TNP:Client Request 01/13/2018 Unknown COMPLETE BLOOD COUNT 1902557 MCHC TNP:Client Request 01/13/2018 Unknown COMPLETE BLOOD COUNT [id number] PLATELET COUNT TNP:Client Req uest 01/13/2018 Unknown COMPLETE BLOOD COUNT [id number] Mean Plt Volume TNP:Client Re quest 01/13/2018 Unknown COMPLETE BLOOD COUNT [id number] Neut Auto TNP:Client Request 01/13/2018 Unknown COMPLETE BLOOD COUNT [id number] Lymph Auto TNP:Client Request 01/13/2018 Unknown COMPLETE BLOOD COUNT [id number] [place] Auto TNP:Client Request 01/13/2018 Unknown COMPLETE BLOOD COUNT [id number] RDW TNP:Client Request 01/13/2018 Unknown COMPLETE BLOOD COUNT [id number] Eos Auto TNP:Client Request 01/13/2018 Unknown COMPLETE BLOOD COUNT [id number] Baso Auto TNP:Client Request 01/13/2018 Unknown COMPLETE BLOOD COUNT [id number] Neutrophil Abs TNP:Client Req uest 01/13/2018 Unknown COMPLETE BLOOD COUNT [id number] Lymphocyte Abs TNP:Client Req uest 01/13/2018 Unknown COMPLETE BLOOD COUNT [id number] Monocyte Abs TNP:Client Reque st 01/13/2018 Unknown COMPLETE BLOOD COUNT [id number] Eosinophil Abs TNP:Client Req uest 01/13/2018 Unknown COMPLETE BLOOD COUNT [id number] RDW-SD TNP:Client Request 01/13/2018 Unknown COMPLETE BLOOD COUNT [id number] Basophil Abs TNP:Client Reque st 01/13/2018 Unknown GLYCOSYLATED HEMOGLOBIN TEST 06285 Hgb A1c 63065-0 6.2 % 1 Unknown THYROID STIMULATING HORMONE 52480 TSH 2.764 uIU/mL 01/13/2018 Unknown COMPREHENSIVE METABOLIC 01315 AST 19 U/L 2017 Unknown COMPREHENSIVE METABOLIC 98009 ALT 21 U/L 2017 Unknown COMPREHENSIVE METABOLIC 05807 BUN 16 mg/dL 2017 Unknown COMPREHENSIVE METABOLIC 75950 ALBUMIN 4.2 g/dL 2017 Unknown COMPREHENSIVE METABOLIC 27294 CHLORIDE 105 mmol/L 01/13 Unknown COMPREHENSIVE METABOLIC 34039 Bili Total 0.5 mg/dL 01/13 Unknown COMPREHENSIVE METABOLIC 43521 ALK PHOS 85 U/L 2017 Unknown COMPREHENSIVE METABOLIC 76206 SODIUM 139 mmol/L 01/13 Unknown COMPREHENSIVE METABOLIC 12582 CREATININE 1.07 mg/dL 01/04 Unknown COMPREHENSIVE METABOLIC 06451 CALCIUM 9.2 mg/dL 2017 Unknown COMPREHENSIVE METABOLIC 57405 POTASSIUM 4.4 mmol/L 01/13 Unknown COMPREHENSIVE METABOLIC 43284 Total Protein 7.7 g/dL Unknown COMPREHENSIVE METABOLIC 10899 Glucose 130 mg/dL 2017 Unknown COMPREHENSIVE METABOLIC 75046 Bicarbonate 27 mmol/L 01/04 Unknown COMPREHENSIVE METABOLIC 92415 AGAP 7 mmol/L 2017 Unknown PSA EQUIMOLAR JERSON 95826 PSA Total 1.16 ng/mL 8 Unknown MEAN GLUC 2086621 Calc Mean Gluc 131 mg/dL 01/13/2018 Unkn own GFR CALC 6219535 GFR Non Afr Amr >60 mL/min 01/13/2018 Un known GFR CALC 6266761 GFR Afr Amr >60 mL/min 01/13/2018 Unknow n MEAN GLUC 0646497 Calc Mean Gluc 134 mg/dL 10/06/2017 Unkn own GFR CALC 2500234 GFR Non Afr Amr >60 mL/min 10/06/2017 Un known GFR CALC 7146472 GFR Afr Amr >60 mL/min 10/06/2017 Unknow n GLYCOSYLATED HEMOGLOBIN TEST 29600 Hgb A1c 10486-7 6.3 % 0 10/06/2017 Unknown VITAMIN B 12 35461 VITAMIN B12 1202 pg/mL 10/06/2017 Unk nown COMPLETE BLOOD COUNT 5647737 WBC 7.4 10L 10/07/19 18 Unknown COMPLETE BLOOD COUNT [id number] RBC 4.24 10e12/L 2017 Unknown COMPLETE BLOOD COUNT 5701568 HEMOGLOBIN 13.5 g/dL 10/07/19 18 Unknown COMPLETE BLOOD COUNT 8278484 HEMATOCRIT 41.6 % 10/07/19 18 Unknown COMPLETE BLOOD COUNT 1217209 MCV 98.1 fL 8 Unknown COMPLETE BLOOD COUNT 3009781 MCH 31.8 pg 8 Unknown COMPLETE BLOOD COUNT 9776438 MCHC 32.5 g/dL 8 Unknown COMPLETE BLOOD COUNT [id number] PLATELET COUNT 223 10e9/L 06/2017 Unknown COMPLETE BLOOD COUNT 4563578 Mean Plt Volume 11.9 fL 06/2017 Unknown COMPLETE BLOOD COUNT 0151200 Neut Auto 58.0 % 8 Unknown COMPLETE BLOOD COUNT 2387529 Lymph Auto 29.7 % 10/07/19 18 Unknown COMPLETE BLOOD COUNT 5803353 [place] Auto 8.3 % 8 Unknown COMPLETE BLOOD COUNT 9637891 RDW 14.0 % 8 Unknown COMPLETE BLOOD COUNT 2106493 Eos Auto 3.7 % 8 Unknown COMPLETE BLOOD COUNT 4036871 Baso Auto 0.3 % 8 Unknown COMPLETE BLOOD COUNT 9022142 Neutrophil Abs 4.29 10e9/L Unknown COMPLETE BLOOD COUNT 5473960 Lymphocyte Abs 2.20 10e9/L Unknown COMPLETE BLOOD COUNT [id number] Monocyte Abs 0.61 10e9/L 06/2017 Unknown COMPLETE BLOOD COUNT 7717284 Eosinophil Abs 0.27 10e9/L Unknown COMPLETE BLOOD COUNT [id number] RDW-SD 48.6 fL 8 Unknown COMPLETE BLOOD COUNT [id number] Basophil Abs 0.02 10e9/L 06/2017 Unknown LIPID GROUP 92002 Cholesterol 216 mg/dL 10/06/2017 Unkno wn LIPID GROUP 33461 Triglyceride 335 mg/dL 10/06/2017 Unkn own LIPID GROUP 85669 HDL CHOLESTEROL 33 mg/dL 10/06/2017 U nknown LIPID GROUP 81792 Chol/HDL Ratio 6.55 ratio 10/06/2017 U nknown LIPID GROUP 08806 NON-HDL Chol 183 mg/dL 10/06/2017 Unkn own LIPID GROUP 50914 LDL Cholesterol 116 mg/dL 10/06/2017 U nknown COMPREHENSIVE METABOLIC 40661 AST 15 U/L 2017 Unknown COMPREHENSIVE METABOLIC 10638 ALT 15 U/L 2017 Unknown COMPREHENSIVE METABOLIC 93139 BUN 21 mg/dL 2017 Unknown COMPREHENSIVE METABOLIC 69226 ALBUMIN 4.1 g/dL 2017 Unknown COMPREHENSIVE METABOLIC 49017 CHLORIDE 107 mmol/L 10/06 Unknown COMPREHENSIVE METABOLIC 67399 Bili Total 0.6 mg/dL 10/06 Unknown COMPREHENSIVE METABOLIC 77879 ALK PHOS 68 U/L 2017 Unknown COMPREHENSIVE METABOLIC 67676 SODIUM 140 mmol/L 10/06 Unknown COMPREHENSIVE METABOLIC 43972 CREATININE 1.12 mg/dL 06/2017 Unknown COMPREHENSIVE METABOLIC 67607 CALCIUM 9.7 mg/dL 2017 Unknown COMPREHENSIVE METABOLIC 52606 POTASSIUM 4.6 mmol/L 10/06 Unknown COMPREHENSIVE METABOLIC 32236 Total Protein 6.6 g/dL Unknown COMPREHENSIVE METABOLIC 34027 Glucose 114 mg/dL 2017 Unknown COMPREHENSIVE METABOLIC 81502 Bicarbonate 26 mmol/L 06/2017 Unknown COMPREHENSIVE METABOLIC 35464 AGAP 7 mmol/L 2017 Unknown GLYCOSYLATED HEMOGLOBIN TEST 20849 Hgb A1c 29606-2 6.1 % 1 05/05/2016 Unknown GFR CALC 1452877 GFR Non Afr Amr >60 mL/min 03/05/2017 Un known GFR CALC 3964870 GFR Afr Amr >60 mL/min 03/05/2017 Unknow n MEAN GLUC 1819323 Calc Mean Gluc 128 mg/dL 03/05/2017 Unkn own COMPREHENSIVE METABOLIC 95831 AST 18 U/L 2016 Unknown COMPREHENSIVE METABOLIC 06343 ALT 20 U/L 2016 Unknown COMPREHENSIVE METABOLIC 02241 BUN 15 mg/dL 2016 Unknown COMPREHENSIVE METABOLIC 86890 ALBUMIN 4.3 g/dL 2016 Unknown COMPREHENSIVE METABOLIC 49640 CHLORIDE 105 mmol/L 03/05 Unknown COMPREHENSIVE METABOLIC 78218 Bili Total 0.5 mg/dL 03/05 Unknown COMPREHENSIVE METABOLIC 75947 ALK PHOS 57 U/L 2016 Unknown COMPREHENSIVE METABOLIC 62133 SODIUM 141 mmol/L 03/05 Unknown COMPREHENSIVE METABOLIC 13101 CREATININE 1.07 mg/dL 02/06 Unknown COMPREHENSIVE METABOLIC 87920 CALCIUM 9.3 mg/dL 2016 Unknown COMPREHENSIVE METABOLIC 19979 POTASSIUM 4.8 mmol/L 03/05 Unknown COMPREHENSIVE METABOLIC 38852 Total Protein 6.2 g/dL Unknown COMPREHENSIVE METABOLIC 88625 Glucose 118 mg/dL 2016 Unknown COMPREHENSIVE METABOLIC 52040 Bicarbonate 29 mmol/L 02/06 Unknown COMPREHENSIVE METABOLIC 42635 AGAP 7 mmol/L 2016 Unknown FREE T4 10944 T4 Free 1.38 ng/dL 03/05/2017 Unknown COMPLETE BLOOD COUNT 8063263 WBC 8.4 10e9/L 03/05/20 17 Unknown COMPLETE BLOOD COUNT 1194855 RBC 4.11 10e12/L 2016 Unknown COMPLETE BLOOD COUNT 6626338 HEMOGLOBIN 12.8 g/dL 03/05/20 17 Unknown COMPLETE BLOOD COUNT 0835265 HEMATOCRIT 40.1 % 03/05/20 17 Unknown COMPLETE BLOOD COUNT 5845334 MCV 97.6 fL 7 Unknown COMPLETE BLOOD COUNT 6166941 MCH 31.1 pg 7 Unknown COMPLETE BLOOD COUNT 3328967 MCHC 31.9 g/dL 7 Unknown COMPLETE BLOOD COUNT 2394645 PLATELET COUNT 184 10e9/L Unknown COMPLETE BLOOD COUNT 0012680 Mean Plt Volume 11.3 fL Unknown COMPLETE BLOOD COUNT 1774278 Neut Auto 62.5 % 7 Unknown COMPLETE BLOOD COUNT 2274907 Lymph Auto 26.4 % 03/05/20 17 Unknown COMPLETE BLOOD COUNT 2767177 [place] Auto 7.9 % 7 Unknown COMPLETE BLOOD COUNT 0698274 RDW 13.5 % 7 Unknown COMPLETE BLOOD COUNT 6957763 Eos Auto 3.0 % 7 Unknown COMPLETE BLOOD COUNT 7236431 Baso Auto 0.2 % 7 Unknown COMPLETE BLOOD COUNT 3246822 Neutrophil Abs 5.25 10e9/L Unknown COMPLETE BLOOD COUNT 8153139 Lymphocyte Abs 2.22 10e9/L Unknown COMPLETE BLOOD COUNT 9377214 Monocyte Abs 0.66 10e9/L 02/06 Unknown COMPLETE BLOOD COUNT 4059848 Eosinophil Abs 0.25 10e9/L Unknown COMPLETE BLOOD COUNT 7304395 RDW-SD 46.7 fL 7 Unknown COMPLETE BLOOD COUNT 8749642 Basophil Abs 0.02 10e9/L 02/06 Unknown THYROID STIMULATING HORMONE 69149 TSH 2.330 uIU/mL 03/05/2017 Unknown LIPID GROUP 27276 Cholesterol 135 mg/dL 03/05/2017 Unkno wn LIPID GROUP 74299 Triglyceride 297 mg/dL 03/05/2017 Unkn own LIPID GROUP 09448 HDL CHOLESTEROL 34 mg/dL 03/05/2017 U nknown LIPID GROUP 34412 Chol/HDL Ratio 3.97 ratio 03/05/2017 U nknown LIPID GROUP 12311 NON-HDL Chol 101 mg/dL 03/05/2017 Unkn own LIPID GROUP 77718 LDL Cholesterol 42 mg/dL 03/05/2017 U nknown GLYCOSYLATED HEMOGLOBIN TEST 34648 Hgb A1c 05968-5 6.5 % 1 05/07/2015 Unknown GFR CALC 5922827 GFR Non Afr Amr 55 mL/min 03/06/2016 Unk nown GFR CALC 2084322 GFR Afr Amr >60 mL/min 03/06/2016 Unknow n COMPLETE BLOOD COUNT 7226497 WBC 8.5 10e9/L 03/06/20 16 Unknown COMPLETE BLOOD COUNT 1989594 RBC 4.32 10e12/L 2015 Unknown COMPLETE BLOOD COUNT 9872543 HEMOGLOBIN 13.5 g/dL 03/06/20 16 Unknown COMPLETE BLOOD COUNT 4275818 HEMATOCRIT 41.3 % 03/06/20 16 Unknown COMPLETE BLOOD COUNT 4812397 MCV 95.6 fL 6 Unknown COMPLETE BLOOD COUNT 2268987 MCH 31.3 pg 6 Unknown COMPLETE BLOOD COUNT 7442328 MCHC 32.7 g/dL 6 Unknown COMPLETE BLOOD COUNT 9957129 PLATELET COUNT 191 10e9/L 04/2015 Unknown COMPLETE BLOOD COUNT 8187809 Mean Plt Volume 11.7 fL 04/2015 Unknown COMPLETE BLOOD COUNT 0191031 Neut Auto 64.2 % 6 Unknown COMPLETE BLOOD COUNT 9454816 Lymph Auto 25.9 % 03/06/20 16 Unknown COMPLETE BLOOD COUNT 5713852 [place] Auto 7.8 % 6 Unknown COMPLETE BLOOD COUNT 3629327 RDW 13.4 % 6 Unknown COMPLETE BLOOD COUNT 3415253 Eos Auto 2.0 % 6 Unknown COMPLETE BLOOD COUNT 9380438 Baso Auto 0.1 % 6 Unknown COMPLETE BLOOD COUNT 5183338 Neutrophil Abs 5.46 10e9/L Unknown COMPLETE BLOOD COUNT 6747574 Lymphocyte Abs 2.20 10e9/L Unknown COMPLETE BLOOD COUNT 2162831 Monocyte Abs 0.66 10e9/L 04/2015 Unknown COMPLETE BLOOD COUNT 2185466 Eosinophil Abs 0.17 10e9/L Unknown COMPLETE BLOOD COUNT 2738454 RDW-SD 45.0 fL 6 Unknown COMPLETE BLOOD COUNT [id number] Basophil Abs 0.01 10e9/L 04/2015 Unknown FREE T4 76115 T4 Free 1.34 ng/dL 03/06/2016 Unknown MEAN GLUC 4821833 Calc Mean Gluc 140 mg/dL 03/06/2016 Unkn own COMPREHENSIVE METABOLIC 20185 AST 15 U/L 2015 Unknown COMPREHENSIVE METABOLIC 29458 ALT 18 U/L 2015 Unknown COMPREHENSIVE METABOLIC 75102 BUN 21 mg/dL 2015 Unknown COMPREHENSIVE METABOLIC 27277 ALBUMIN 4.3 g/dL 2015 Unknown COMPREHENSIVE METABOLIC 66772 CHLORIDE 103 mmol/L 03/06 Unknown COMPREHENSIVE METABOLIC 88967 Bili Total 0.4 mg/dL 03/06 Unknown COMPREHENSIVE METABOLIC 21995 ALK PHOS 68 U/L 2015 Unknown COMPREHENSIVE METABOLIC 05086 SODIUM 140 mmol/L 03/06 Unknown COMPREHENSIVE METABOLIC 15470 CREATININE 1.31 mg/dL 04/2015 Unknown COMPREHENSIVE METABOLIC 17334 CALCIUM 9.4 mg/dL 2015 Unknown COMPREHENSIVE METABOLIC 58842 POTASSIUM 4.8 mmol/L 03/06 Unknown COMPREHENSIVE METABOLIC 19833 Total Protein 6.6 g/dL Unknown COMPREHENSIVE METABOLIC 42603 Glucose 142 mg/dL 2015 Unknown COMPREHENSIVE METABOLIC 55815 Bicarbonate 29 mmol/L 04/2015 Unknown COMPREHENSIVE METABOLIC 66460 AGAP 8 mmol/L 2015 Unknown THYROID STIMULATING HORMONE 39451 TSH 2.288 uIU/mL 03/06/2016 Unknown LIPID GROUP 99615 Cholesterol 154 mg/dL 03/06/2016 Unkno wn LIPID GROUP 07958 Triglyceride 266 mg/dL 03/06/2016 Unkn own LIPID GROUP 33439 HDL CHOLESTEROL 38 mg/dL 03/06/2016 U nknown LIPID GROUP 41266 Chol/HDL Ratio 4.05 ratio 03/06/2016 U nknown LIPID GROUP 69119 NON-HDL Chol 116 mg/dL 03/06/2016 Unkn own LIPID GROUP 64570 LDL Cholesterol 63 mg/dL 03/06/2016 U nknown MEAN GLUC 5257534 Mean Glucose 128 mg/dL 08/31/2015 Unknow n COMPLETE BLOOD COUNT 7421365 WBC 8.4 10e9/L 08/31/19 16 Unknown COMPLETE BLOOD COUNT [id number] RBC 4.12 10e12/L 2015 Unknown COMPLETE BLOOD COUNT 9461827 HEMOGLOBIN 12.8 g/dL 08/31/19 16 Unknown COMPLETE BLOOD COUNT 2889960 HEMATOCRIT 39.6 % 08/31/19 16 Unknown COMPLETE BLOOD COUNT 8533485 MCV 96.1 fL 6 Unknown COMPLETE BLOOD COUNT 5821438 MCH 31.1 pg 6 Unknown COMPLETE BLOOD COUNT 3758308 MCHC 32.3 g/dL 6 Unknown COMPLETE BLOOD COUNT 0622291 PLATELET COUNT 184 10e9/L Unknown COMPLETE BLOOD COUNT 1962598 Mean Plt Volume 12.0 fL Unknown COMPLETE BLOOD COUNT 4484820 Neut Auto 59.8 % 6 Unknown COMPLETE BLOOD COUNT 3550223 Lymph Auto 27.9 % 08/31/19 16 Unknown COMPLETE BLOOD COUNT 0766905 [place] Auto 9.1 % 6 Unknown COMPLETE BLOOD COUNT 6697178 RDW 13.6 % 6 Unknown COMPLETE BLOOD COUNT 6500267 Eos Auto 3.1 % 6 Unknown COMPLETE BLOOD COUNT 8928089 Baso Auto 0.1 % 6 Unknown COMPLETE BLOOD COUNT 7831581 Neutrophil Abs 5.02 10e9/L Unknown COMPLETE BLOOD COUNT 0817752 Lymphoctye Abs 2.34 10e9/L Unknown COMPLETE BLOOD COUNT [id number] Monocyte Abs 0.76 10e9/L 08/05 Unknown COMPLETE BLOOD COUNT [id number] Eosinophil Abs 0.26 10e9/L Unknown COMPLETE BLOOD COUNT 0077146 RDW-SD 46.3 fL 201 6 Unknown COMPLETE BLOOD COUNT 8502792 Basophil Abs 0.01 10e9/L 08/05 Unknown GLYCOSYLATED HEMOGLOBIN TEST 25138 Hgb A1c 02405-6 6.1 % 0 08/31/2015 Unknown GFR CALC 1881625 GFR Non Afr Amr >60 mL/min 08/31/2015 Un known GFR CALC 7647444 GFR Afr Amr >60 mL/min 08/31/2015 Unknow n FREE T4 24624 T4 Free 1.21 ng/dL 08/31/2015 Unknown THYROID STIMULATING HORMONE 92626 TSH 2.988 uIU/mL 08/31/2015 Unknown COMPREHENSIVE METABOLIC 24380 AST 16 U/L 2015 Unknown COMPREHENSIVE METABOLIC 43718 ALT 19 U/L 2015 Unknown COMPREHENSIVE METABOLIC 23289 BUN 17 mg/dL 2015 Unknown COMPREHENSIVE METABOLIC 77546 ALBUMIN 4.3 g/dL 2015 Unknown COMPREHENSIVE METABOLIC 30486 CHLORIDE 107 mmol/L 08/30 Unknown COMPREHENSIVE METABOLIC 47013 Bili Total 0.4 mg/dL 08/30 Unknown COMPREHENSIVE METABOLIC 62086 ALK PHOS 66 U/L 2015 Unknown COMPREHENSIVE METABOLIC 20183 SODIUM 140 mmol/L 08/30 Unknown COMPREHENSIVE METABOLIC 99081 CREATININE 1.07 mg/dL 08/05 Unknown COMPREHENSIVE METABOLIC 73069 CALCIUM 9.5 mg/dL 2015 Unknown COMPREHENSIVE METABOLIC 11104 POTASSIUM 4.5 mmol/L 08/30 Unknown COMPREHENSIVE METABOLIC 31961 Total Protein 6.7 g/dL Unknown COMPREHENSIVE METABOLIC 57532 Glucose 122 mg/dL 2015 Unknown COMPREHENSIVE METABOLIC 04280 Bicarbonate 26 mmol/L 08/05 Unknown COMPREHENSIVE METABOLIC 73273 AGAP 7 mmol/L 2015 Unknown LIPID GROUP 10422 Cholesterol 171 mg/dL 08/31/2015 Unkno wn LIPID GROUP 26834 Triglyceride 428 mg/dL 08/31/2015 Unkn own LIPID GROUP 61722 HDL CHOLESTEROL 35 mg/dL 08/31/2015 U nknown LIPID GROUP 17891 Chol/HDL Ratio 4.89 ratio 08/31/2015 U nknown LIPID GROUP 66487 NON-HDL Chol 136 mg/dL 08/31/2015 Unkn own LIPID GROUP 32363 LDL Cholesterol 50 mg/dL 08/31/2015 U nknown PSA EQUIMOLAR JERSON 75997 PSA Total 0.47 ng/mL 6 Unknown GFR CALC 5638094 GFR AA >60 ML/MIN 01/12/2015 Unknown GFR CALC 3450249 GFR NON-AA >60 ML/MIN 01/12/2015 Unknown COMPREHENSIVE METABOLIC 42299 AST 18 U/L 2014 Unknown COMPREHENSIVE METABOLIC 69028 ALT 19 IU/L 2014 Unknown COMPREHENSIVE METABOLIC 23321 BUN 19 MG/DL 2014 Unknown COMPREHENSIVE METABOLIC 09241 ALBUMIN 4.7 GM/DL 2014 Unknown COMPREHENSIVE METABOLIC 14761 CHLORIDE 104 MMOL/L 01/12 Unknown COMPREHENSIVE METABOLIC 65089 BILI TOT 0.8 MG/DL 2014 Unknown COMPREHENSIVE METABOLIC 29984 ALK PHOS 58 U/L 2014 Unknown COMPREHENSIVE METABOLIC 48120 SODIUM 139 MMOL/L 01/12 Unknown COMPREHENSIVE METABOLIC 03185 CREATININE 1.09 MG/DL 12/2014 Unknown COMPREHENSIVE METABOLIC 02313 CALCIUM 9.6 MG/DL 2014 Unknown COMPREHENSIVE METABOLIC 05453 POTASSIUM 4.4 MMOL/L 01/12 Unknown COMPREHENSIVE METABOLIC 56254 PROT TOT 6.7 GM/DL 2014 Unknown COMPREHENSIVE METABOLIC 16912 Glucose 109 MG/DL 2014 Unknown COMPREHENSIVE METABOLIC 56769 BICARB 27 MMOL/L 2014 Unknown COMPREHENSIVE METABOLIC 79575 ANION GAP 8 MEQ/L 2014 Unknown LIPID GROUP 62207 HDL TEST 36 MG/DL 01/12/2015 Unknown LIPID GROUP 06085 TRIG 220 MG/DL 01/12/2015 Unknown LIPID GROUP 87114 TEST LDL 58 MG/DL 01/12/2015 Unknown LIPID GROUP 95616 CHOL 138 MG/DL 01/12/2015 Unknown LIPID GROUP 60945 RCHOL/HDL 3.83 RATIO 01/12/2015 Unknow n LIPID GROUP 00384 NON-HDL CH 102 MG/DL 01/12/2015 Unknow n GLYCOSYLATED HEMOGLOBIN TEST 28483 A1C HPLC 64492-4 6.1 % 1 Unknown COMPLETE BLOOD COUNT 7784755 WBC 7.1 10e9/L 01/13/20 15 Unknown COMPLETE BLOOD COUNT 1817154 RBC 4.38 10e12/L 2014 Unknown COMPLETE BLOOD COUNT 5733386 HGB 13.7 g/dL 5 Unknown COMPLETE BLOOD COUNT 8320851 HCT DET 41.3 % 5 Unknown COMPLETE BLOOD COUNT 2413780 MCV 94.3 fL 5 Unknown COMPLETE BLOOD COUNT 3682575 MCH 31.3 pg 5 Unknown COMPLETE BLOOD COUNT 1251681 MCHC 33.2 g/dL 5 Unknown COMPLETE BLOOD COUNT 1025385 PLT 174 10e9/L 01/13/20 15 Unknown COMPLETE BLOOD COUNT 4927528 MPV 11.8 fL 5 Unknown COMPLETE BLOOD COUNT 4539258 SAMIR % 61.3 % 5 Unknown COMPLETE BLOOD COUNT 1276083 LY % 28.3 % 5 Unknown COMPLETE BLOOD COUNT 6053840 MON % 7.6 % 5 Unknown COMPLETE BLOOD COUNT 7173259 EOS % 2.7 % 5 Unknown COMPLETE BLOOD COUNT 5301572 BASO % 0.1 % 5 Unknown COMPLETE BLOOD COUNT 3324168 RDW 13.1 % 5 Unknown COMPLETE BLOOD COUNT 3625772 ABS SAMIR 4.35 10e9/L 015 Unknown COMPLETE BLOOD COUNT 1626739 ABS LYMPH 2.01 10e9/L 015 Unknown COMPLETE BLOOD COUNT 7809398 ABS MONO 0.54 10e9/L 015 Unknown COMPLETE BLOOD COUNT 9874467 ABS EOS 0.19 10e9/L 015 Unknown COMPLETE BLOOD COUNT 4618001 ABS BASO 0.01 10e9/L 015 Unknown COMPLETE BLOOD COUNT 9655302 RDW-SD 43.9 fL 5 Unknown GLYCOSYLATED HEMOGLOBIN TEST 87276 A1C HPLC 49484-4 6.1 % 0 08/15/2014 Unknown COMPLETE BLOOD COUNT 3979424 WBC 9.7 10e9/L 08/16/19 15 Unknown COMPLETE BLOOD COUNT 3446836 RBC 4.29 10e12/L 2014 Unknown COMPLETE BLOOD COUNT 3572539 HGB 13.3 g/dL 5 Unknown COMPLETE BLOOD COUNT 8120671 HCT DET 40.5 % 5 Unknown COMPLETE BLOOD COUNT 6058158 MCV 94.4 fL 5 Unknown COMPLETE BLOOD COUNT 0536270 MCH 31.0 pg 5 Unknown COMPLETE BLOOD COUNT 3744661 MCHC 32.8 g/dL 5 Unknown COMPLETE BLOOD COUNT 4791625 PLT 227 10e9/L 08/16/19 15 Unknown COMPLETE BLOOD COUNT 2220717 MPV 11.0 fL 5 Unknown COMPLETE BLOOD COUNT 2660232 SAMIR % 66.4 % 5 Unknown COMPLETE BLOOD COUNT 9213194 LY % 23.7 % 5 Unknown COMPLETE BLOOD COUNT 7866329 MON % 8.1 % 5 Unknown COMPLETE BLOOD COUNT 7132134 EOS % 1.6 % 5 Unknown COMPLETE BLOOD COUNT 7293700 BASO % 0.2 % 5 Unknown COMPLETE BLOOD COUNT 5349305 RDW 13.4 % 5 Unknown COMPLETE BLOOD COUNT 7567483 ABS SAMIR 6.44 10e9/L 015 Unknown COMPLETE BLOOD COUNT 0300218 ABS LYMPH 2.30 10e9/L 015 Unknown COMPLETE BLOOD COUNT 7081922 ABS MONO 0.79 10e9/L 015 Unknown COMPLETE BLOOD COUNT 6838936 ABS EOS 0.16 10e9/L 015 Unknown COMPLETE BLOOD COUNT 9681630 ABS BASO 0.02 10e9/L 015 Unknown COMPLETE BLOOD COUNT 5605877 RDW-SD 44.7 fL 5 Unknown COMPREHENSIVE METABOLIC 86366 AST 17 U/L 2014 Unknown COMPREHENSIVE METABOLIC 86783 ALT 23 IU/L 2014 Unknown COMPREHENSIVE METABOLIC 01926 BUN 16 MG/DL 2014 Unknown COMPREHENSIVE METABOLIC 59122 ALBUMIN 4.3 GM/DL 2014 Unknown COMPREHENSIVE METABOLIC 10718 CHLORIDE 107 MMOL/L 08/15 Unknown COMPREHENSIVE METABOLIC 92642 BILI TOT 0.4 MG/DL 2014 Unknown COMPREHENSIVE METABOLIC 22372 ALK PHOS 91 U/L 2014 Unknown COMPREHENSIVE METABOLIC 01449 SODIUM 139 MMOL/L 08/15 Unknown COMPREHENSIVE METABOLIC 35740 CREATININE 1.07 MG/DL 08/04 Unknown COMPREHENSIVE METABOLIC 91903 CALCIUM 9.6 MG/DL 2014 Unknown COMPREHENSIVE METABOLIC 40498 POTASSIUM 4.6 MMOL/L 08/15 Unknown COMPREHENSIVE METABOLIC 55526 PROT TOT 6.7 GM/DL 2014 Unknown COMPREHENSIVE METABOLIC 51821 Glucose 111 MG/DL 2014 Unknown COMPREHENSIVE METABOLIC 49134 BICARB 27 MMOL/L 2014 Unknown COMPREHENSIVE METABOLIC 63180 ANION GAP 5 MEQ/L 2014 Unknown GFR CALC 9116585 GFR AA >60 ML/MIN 08/15/2014 Unknown GFR CALC [id number] GFR NON-AA >60 ML/MIN 08/15/2014 Unknown THYROID STIMULATING HORMONE 40287 TSH 1.598 uIU/ML 08/15/2014 Unknown LIPID GROUP 50701 HDL TEST 33 MG/DL 08/15/2014 Unknown LIPID GROUP 23242 TRIG 187 MG/DL 08/15/2014 Unknown LIPID GROUP 44463 TEST LDL 58 MG/DL 08/15/2014 Unknown LIPID GROUP 89662 CHOL 128 MG/DL 08/15/2014 Unknown LIPID GROUP 59095 RCHOL/HDL 3.88 RATIO 08/15/2014 Unknow n LIPID GROUP 55489 NON-HDL CH 95 MG/DL 08/15/2014 Unknow n PSA EQUIMOLAR JERSON 63107 PSA EQ 0.70 NG/ML 5 Unknown FREE T4 21030 FREE T4 1.32 NG/DL 08/15/2014 Unknown GFR CALC [id number] GFR AA >60 ML/MIN 12/14/2013 Unknown GFR CALC [id number] GFR NON-AA 58.0L ML/MIN 12/14/2013 Unkno wn COMPLETE BLOOD COUNT [id number] WBC 8.7 10e9/L 12/15/19 14 Unknown COMPLETE BLOOD COUNT [id number] RBC 4.32 10e12/L 2013 Unknown COMPLETE BLOOD COUNT [id number] HGB 13.5 g/dL 4 Unknown COMPLETE BLOOD COUNT 6147346 HCT DET 40.6 % 4 Unknown COMPLETE BLOOD COUNT [id number] MCV 94.0 fL 4 Unknown COMPLETE BLOOD COUNT 5983333 MCH 31.3 pg 4 Unknown COMPLETE BLOOD COUNT 5183581 MCHC 33.3 g/dL 4 Unknown COMPLETE BLOOD COUNT 2842697 PLT 205 10e9/L 12/15/19 14 Unknown COMPLETE BLOOD COUNT [id number] MPV 11.7 fL 4 Unknown COMPLETE BLOOD COUNT [id number] SAMIR % 62.5 % 4 Unknown COMPLETE BLOOD COUNT 4065504 LY % 26.9 % 4 Unknown COMPLETE BLOOD COUNT [id number] MON % 8.8 % 4 Unknown COMPLETE BLOOD COUNT [id number] EOS % 1.7 % 4 Unknown COMPLETE BLOOD COUNT [id number] BASO % 0.1 % 4 Unknown COMPLETE BLOOD COUNT 4717003 RDW 13.4 % 4 Unknown COMPLETE BLOOD COUNT [id number] ABS SAMIR 5.44 10e9/L 014 Unknown COMPLETE BLOOD COUNT [id number] ABS LYMPH 2.34 10e9/L 014 Unknown COMPLETE BLOOD COUNT [id number] ABS MONO 0.77 10e9/L 014 Unknown COMPLETE BLOOD COUNT [id number] ABS EOS 0.15 10e9/L 014 Unknown COMPLETE BLOOD COUNT [id number] ABS BASO 0.01 10e9/L 014 Unknown COMPLETE BLOOD COUNT [id number] RDW-SD 44.7 fL 4 Unknown COMPREHENSIVE METABOLIC 55954 AST 14 U/L 2013 Unknown COMPREHENSIVE METABOLIC 20782 ALT 12 IU/L 2013 Unknown COMPREHENSIVE METABOLIC 10333 BUN 24 MG/DL 2013 Unknown COMPREHENSIVE METABOLIC 98582 ALBUMIN 4.5 GM/DL 2013 Unknown COMPREHENSIVE METABOLIC 87932 CHLORIDE 104 MMOL/L 12/14 Unknown COMPREHENSIVE METABOLIC 11987 BILI TOT 0.6 MG/DL 2013 Unknown COMPREHENSIVE METABOLIC 02619 ALK PHOS 82 U/L 2013 Unknown COMPREHENSIVE METABOLIC 69454 SODIUM 135 MMOL/L 12/14 Unknown COMPREHENSIVE METABOLIC 38845 CREATININE 1.25 MG/DL 12/05 Unknown COMPREHENSIVE METABOLIC 50702 CALCIUM 9.8 MG/DL 2013 Unknown COMPREHENSIVE METABOLIC 62267 POTASSIUM 4.7 MMOL/L 12/14 Unknown COMPREHENSIVE METABOLIC 80390 PROT TOT 6.7 GM/DL 2013 Unknown COMPREHENSIVE METABOLIC 56878 Glucose 126 MG/DL 2013 Unknown COMPREHENSIVE METABOLIC 29782 BICARB 27 MMOL/L 2013 Unknown COMPREHENSIVE METABOLIC 74162 ANION GAP 4 MEQ/L 2013 Unknown THYROID STIMULATING HORMONE 89156 TSH 3.281 uIU/ML 12/14/2013 Unknown FREE T4 42974 FREE T4 1.28 NG/DL 12/14/2013 Unknown LIPID GROUP 03622 HDL TEST 36 MG/DL 12/14/2013 Unknown LIPID GROUP 24345 TRIG 253 MG/DL 12/14/2013 Unknown LIPID GROUP 70854 TEST LDL 56 MG/DL 12/14/2013 Unknown LIPID GROUP 32053 CHOL 143 MG/DL 12/14/2013 Unknown LIPID GROUP 11546 RCHOL/HDL 3.97 RATIO 12/14/2013 Unknow n LIPID GROUP 25716 NON-HDL CH 107 MG/DL 12/14/2013 Unknow n GLYCOSYLATED HEMOGLOBIN TEST 94580 A1C HPLC 62398-3 6.1 % 0 12/14/2013 Unknown GLYCOSYLATED HEMOGLOBIN TEST 21719 A1C HPLC 22839-2 6.0 % 0 06/08/2013 Unknown LIPID GROUP 80804 HDL TEST 39 MG/DL 06/08/2013 Unknown LIPID GROUP 20558 TRIG 166 MG/DL 06/08/2013 Unknown LIPID GROUP 61898 TEST LDL 86 MG/DL 06/08/2013 Unknown LIPID GROUP 06639 CHOL 158 MG/DL 06/08/2013 Unknown LIPID GROUP 38739 RCHOL/HDL 4.05 RATIO 06/08/2013 Unknow n COMPREHENSIVE METABOLIC 11419 AST 17 U/L 2013 Unknown COMPREHENSIVE METABOLIC 66161 ALT 25 IU/L 2013 Unknown COMPREHENSIVE METABOLIC 04547 BUN 18 MG/DL 2013 Unknown COMPREHENSIVE METABOLIC 66723 ALBUMIN 4.5 GM/DL 2013 Unknown COMPREHENSIVE METABOLIC 96950 CHLORIDE 103 MMOL/L 06/08 Unknown COMPREHENSIVE METABOLIC 00957 BILI TOT 0.4 MG/DL 2013 Unknown COMPREHENSIVE METABOLIC 21451 ALK PHOS 72 U/L 2013 Unknown COMPREHENSIVE METABOLIC 26614 SODIUM 137 MMOL/L 06/08 Unknown COMPREHENSIVE METABOLIC 96760 CREATININE 1.07 MG/DL 08/2013 Unknown COMPREHENSIVE METABOLIC 40919 CALCIUM 9.7 MG/DL 2013 Unknown COMPREHENSIVE METABOLIC 84595 POTASSIUM 4.7 MMOL/L 06/08 Unknown COMPREHENSIVE METABOLIC 97556 PROT TOT 6.6 GM/DL 2013 Unknown COMPREHENSIVE METABOLIC 10740 Glucose 130 MG/DL 2013 Unknown COMPREHENSIVE METABOLIC 05768 BICARB 25 MMOL/L 2013 Unknown COMPREHENSIVE METABOLIC 26732 ANION GAP 9 MEQ/L 2013 Unknown FREE T4 79684 FREE T4 1.29 NG/DL 06/08/2013 Unknown THYROID STIMULATING HORMONE 29593 TSH 2.445 uIU/ML 06/08/2013 Unknown GFR CALC 1235164 GFR AA >60 ML/MIN 06/08/2013 Unknown GFR CALC 9561201 GFR NON-AA >60 ML/MIN 06/08/2013 Unknown COMPLETE BLOOD COUNT [id number] WBC 8.2 10e9/L 06/09/19 14 Unknown COMPLETE BLOOD COUNT [id number] RBC 4.63 10e12/L 2013 Unknown COMPLETE BLOOD COUNT 8559744 HGB 14.1 g/dL 4 Unknown COMPLETE BLOOD COUNT 9850091 HCT DET 42.6 % 4 Unknown COMPLETE BLOOD COUNT 7494041 MCV 92.0 fL 4 Unknown COMPLETE BLOOD COUNT 2829781 MCH 30.5 pg 4 Unknown COMPLETE BLOOD COUNT 4041420 MCHC 33.1 g/dL 4 Unknown COMPLETE BLOOD COUNT 8722455 PLT 222 10e9/L 06/09/19 14 Unknown COMPLETE BLOOD COUNT 9632796 MPV 10.8 fL 4 Unknown COMPLETE BLOOD COUNT 3764989 SAMIR % 60.8 % 4 Unknown COMPLETE BLOOD COUNT 1821943 LY % 29.2 % 4 Unknown COMPLETE BLOOD COUNT 7469170 MON % 7.6 % 4 Unknown COMPLETE BLOOD COUNT 3146240 EOS % 2.3 % 4 Unknown COMPLETE BLOOD COUNT 2329375 BASO % 0.1 % 4 Unknown COMPLETE BLOOD COUNT 0520902 RDW 13.7 % 4 Unknown COMPLETE BLOOD COUNT 9894759 ABS SAMIR 4.99 10e9/L 014 Unknown COMPLETE BLOOD COUNT 3297646 ABS LYMPH 2.39 10e9/L 014 Unknown COMPLETE BLOOD COUNT 5758027 ABS MONO 0.62 10e9/L 014 Unknown COMPLETE BLOOD COUNT 7056331 ABS EOS 0.19 10e9/L 014 Unknown COMPLETE BLOOD COUNT 4200033 ABS BASO 0.01 10e9/L 014 Unknown COMPLETE BLOOD COUNT 3359711 RDW-SD 45.2 fL 4 Unknown LIPID GROUP 37125 HDL TEST 40 MG/DL 11/11/2012 Unknown LIPID GROUP 56956 TRIG 153 MG/DL 11/11/2012 Unknown LIPID GROUP 91067 TEST LDL 71 MG/DL 11/11/2012 Unknown LIPID GROUP 17848 CHOL 142 MG/DL 11/11/2012 Unknown LIPID GROUP 24804 RCHOL/HDL 3.55 RATIO 11/11/2012 Unknow n GFR CALC 1867477 GFR AA >60 ML/MIN 11/11/2012 Unknown GFR CALC 7367270 GFR NON-AA 57.0L ML/MIN 11/11/2012 Unkno wn HEMOGLOBIN A1C (GLYCOSYLATED) 8817428 A1C HPLC 74980-4 5.9 % 11/11/2012 Unknown THYROID STIMULATING HORMONE 83771 TSH 2.439 uIU/ML 11/11/2012 Unknown COMPLETE BLOOD COUNT 6556336 WBC 8.5 10e9/L 11/12/19 13 Unknown COMPLETE BLOOD COUNT 4363953 RBC 4.42 10e12/L 2012 Unknown COMPLETE BLOOD COUNT 5779526 HGB 13.7 g/dL 3 Unknown COMPLETE BLOOD COUNT 2943824 HCT DET 41.3 % 3 Unknown COMPLETE BLOOD COUNT 9401456 MCV 93.4 fL 3 Unknown COMPLETE BLOOD COUNT 6472835 MCH 31.0 pg 3 Unknown COMPLETE BLOOD COUNT 9568406 MCHC 33.2 g/dL 3 Unknown COMPLETE BLOOD COUNT 9603093 PLT 220 10e9/L 11/12/19 13 Unknown COMPLETE BLOOD COUNT 8321566 MPV 10.8 fL 3 Unknown COMPLETE BLOOD COUNT 1846228 SAMIR % 60.4 % 3 Unknown COMPLETE BLOOD COUNT 9559560 LY % 28.7 % 3 Unknown COMPLETE BLOOD COUNT 3094495 MON % 8.0 % 3 Unknown COMPLETE BLOOD COUNT 9187887 EOS % 2.8 % 3 Unknown COMPLETE BLOOD COUNT 8621064 BASO % 0.1 % 3 Unknown COMPLETE BLOOD COUNT 1118778 RDW 13.7 % 3 Unknown COMPLETE BLOOD COUNT 8078117 ABS SAMIR 5.13 10e9/L 013 Unknown COMPLETE BLOOD COUNT 2853673 ABS LYMPH 2.44 10e9/L 013 Unknown COMPLETE BLOOD COUNT 0869601 ABS MONO 0.68 10e9/L 013 Unknown COMPLETE BLOOD COUNT 4828468 ABS EOS 0.24 10e9/L 013 Unknown COMPLETE BLOOD COUNT 6702784 ABS BASO 0.01 10e9/L 013 Unknown COMPLETE BLOOD COUNT 0813228 RDW-SD 45.6 fL 3 Unknown COMPREHENSIVE METABOLIC 74519 AST 19 U/L 2012 Unknown COMPREHENSIVE METABOLIC 70291 ALT 28 IU/L 2012 Unknown COMPREHENSIVE METABOLIC 71664 BUN 31 MG/DL 2012 Unknown COMPREHENSIVE METABOLIC 67813 ALBUMIN 4.7 GM/DL 2012 Unknown COMPREHENSIVE METABOLIC 65539 CHLORIDE 106 MMOL/L 11/11 Unknown COMPREHENSIVE METABOLIC 66082 BILI TOT 0.5 MG/DL 2012 Unknown COMPREHENSIVE METABOLIC 07926 ALK PHOS 64 U/L 2012 Unknown COMPREHENSIVE METABOLIC 46841 SODIUM 136 MMOL/L 11/11 Unknown COMPREHENSIVE METABOLIC 83051 CREATININE 1.27 MG/DL 11/2012 Unknown COMPREHENSIVE METABOLIC 53378 CALCIUM 9.4 MG/DL 2012 Unknown COMPREHENSIVE METABOLIC 67560 POTASSIUM 4.9 MMOL/L 11/11 Unknown COMPREHENSIVE METABOLIC 05735 PROT TOT 6.7 GM/DL 2012 Unknown COMPREHENSIVE METABOLIC 51330 Glucose 108 MG/DL 2012 Unknown COMPREHENSIVE METABOLIC 04921 BICARB 21 MMOL/L 2012 Unknown COMPREHENSIVE METABOLIC 54509 ANION GAP 9 MEQ/L 2012 Unknown THYROID STIMULATING HORMONE 37052 TSH 2.572 uIU/ML 05/04/2012 Unknown COMPLETE BLOOD COUNT 4735296 WBC 9.3 10e9/L 05/04/19 13 Unknown COMPLETE BLOOD COUNT 3778443 RBC 4.43 10e12/L 2012 Unknown COMPLETE BLOOD COUNT 5464786 HGB 14.2 g/dL 3 Unknown COMPLETE BLOOD COUNT 1388047 HCT DET 41.1 % 3 Unknown COMPLETE BLOOD COUNT 5587405 MCV 92.8 fL 3 Unknown COMPLETE BLOOD COUNT 6459752 MCH 32.1 pg 3 Unknown COMPLETE BLOOD COUNT 5508011 MCHC 34.5 g/dL 3 Unknown COMPLETE BLOOD COUNT 1449448 PLT 193 10e9/L 05/04/19 13 Unknown COMPLETE BLOOD COUNT 9260599 MPV 10.8 fL 3 Unknown COMPLETE BLOOD COUNT 9683933 SAMIR % 63.0 % 3 Unknown COMPLETE BLOOD COUNT 3818505 LY % 25.3 % 3 Unknown COMPLETE BLOOD COUNT 9551725 MON % 9.1 % 3 Unknown COMPLETE BLOOD COUNT 6303703 EOS % 2.5 % 3 Unknown COMPLETE BLOOD COUNT 3390568 BASO % 0.1 % 3 Unknown COMPLETE BLOOD COUNT 1964740 RDW 12.6 % 3 Unknown COMPLETE BLOOD COUNT 3472888 ABS SAMIR 5.86 10e9/L 013 Unknown COMPLETE BLOOD COUNT [id number] ABS LYMPH 2.35 10e9/L 013 Unknown COMPLETE BLOOD COUNT 6126177 ABS MONO 0.85 10e9/L 013 Unknown COMPLETE BLOOD COUNT 2121504 ABS EOS 0.23 10e9/L 013 Unknown COMPLETE BLOOD COUNT [id number] ABS BASO 0.01 10e9/L 013 Unknown COMPLETE BLOOD COUNT 6214739 RDW-SD 41.2 fL 3 Unknown LIPID GROUP 63737 HDL TEST 35 MG/DL 05/04/2012 Unknown LIPID GROUP 17834 TRIG 236 MG/DL 05/04/2012 Unknown LIPID GROUP 96857 TEST LDL 64 MG/DL 05/04/2012 Unknown LIPID GROUP 29774 CHOL 146 MG/DL 05/04/2012 Unknown LIPID GROUP 09965 RCHOL/HDL 4.17 RATIO 05/04/2012 Unknow n COMPREHENSIVE METABOLIC 25817 AST 23 U/L 2012 Unknown COMPREHENSIVE METABOLIC 96060 ALT 33 IU/L 2012 Unknown COMPREHENSIVE METABOLIC 29161 BUN 16 MG/DL 2012 Unknown COMPREHENSIVE METABOLIC 28820 ALBUMIN 4.8 GM/DL 2012 Unknown COMPREHENSIVE METABOLIC 06869 CHLORIDE 104 MMOL/L 05/04 Unknown COMPREHENSIVE METABOLIC 41449 BILI TOT 0.5 MG/DL 2012 Unknown COMPREHENSIVE METABOLIC 07564 ALK PHOS 70 U/L 2012 Unknown COMPREHENSIVE METABOLIC 53776 SODIUM 138 MMOL/L 05/04 Unknown COMPREHENSIVE METABOLIC 39344 CREATININE 1.08 MG/DL 04/07 Unknown COMPREHENSIVE METABOLIC 01946 CALCIUM 9.7 MG/DL 2012 Unknown COMPREHENSIVE METABOLIC 48124 POTASSIUM 4.4 MMOL/L 05/04 Unknown COMPREHENSIVE METABOLIC 15592 PROT TOT 6.8 GM/DL 2012 Unknown COMPREHENSIVE METABOLIC 76743 Glucose 114 MG/DL 2012 Unknown COMPREHENSIVE METABOLIC 57765 BICARB 27 MMOL/L 2012 Unknown COMPREHENSIVE METABOLIC 22808 ANION GAP 7 MEQ/L 2012 Unknown FREE T4 01121 FREE T4 1.11 NG/DL 05/04/2012 Unknown GFR CALC 3204244 GFR AA >60 ML/MIN 05/04/2012 Unknown GFR CALC 3867839 GFR NON-AA >60 ML/MIN 05/04/2012 Unknown GLYCOSYLATED HEMOGLOBIN TEST 59181 A1C HPLC 30145-3 5.8 % 0 10/29/2011 Unknown COMPREHENSIVE METABOLIC 92750 AST 17 U/L 2011 Unknown COMPREHENSIVE METABOLIC 89638 ALT 21 IU/L 2011 Unknown COMPREHENSIVE METABOLIC 78613 BUN 17 MG/DL 2011 Unknown COMPREHENSIVE METABOLIC 67238 ALBUMIN 4.8 GM/DL 2011 Unknown COMPREHENSIVE METABOLIC 74874 CHLORIDE 106 MMOL/L 10/28 Unknown COMPREHENSIVE METABOLIC 27776 BILI TOT 0.6 MG/DL 2011 Unknown COMPREHENSIVE METABOLIC 43376 ALK PHOS 57 U/L 2011 Unknown COMPREHENSIVE METABOLIC 85969 SODIUM 139 MMOL/L 10/28 Unknown COMPREHENSIVE METABOLIC 21178 CREATININE 1.08 MG/DL 10/05 Unknown COMPREHENSIVE METABOLIC 93282 CALCIUM 9.6 MG/DL 2011 Unknown COMPREHENSIVE METABOLIC 49875 POTASSIUM 4.4 MMOL/L 10/28 Unknown COMPREHENSIVE METABOLIC 34814 PROT TOT 6.9 GM/DL 2011 Unknown COMPREHENSIVE METABOLIC 22618 Glucose 104 MG/DL 2011 Unknown COMPREHENSIVE METABOLIC 09285 BICARB 25 MMOL/L 2011 Unknown COMPREHENSIVE METABOLIC 59850 ANION GAP 8 MEQ/L 2011 Unknown LIPID GROUP 97261 HDL TEST 39 MG/DL 10/29/2011 Unknown LIPID GROUP 24103 TRIG 176 MG/DL 10/29/2011 Unknown LIPID GROUP 44438 TEST LDL 70 MG/DL 10/29/2011 Unknown LIPID GROUP 39820 CHOL 144 MG/DL 10/29/2011 Unknown LIPID GROUP 71292 RCHOL/HDL 3.69 RATIO 10/29/2011 Unknow n GFR CALC 4509807 GFR AA >60 ML/MIN 10/29/2011 Unknown GFR CALC 8602596 GFR NON-AA >60 ML/MIN 10/29/2011 Unknown GFR CALC 0542734 GFR AA >60 ML/MIN 03/14/2011 Unknown GFR CALC 9565251 GFR NON-AA >60 ML/MIN 03/14/2011 Unknown GLYCOSYLATED HEMOGLOBIN TEST 43127 A1C HPLC 07275-4 5.7 % 1 05/15/2010 Unknown COMPREHENSIVE METABOLIC 99223 AST 18 U/L 2010 Unknown COMPREHENSIVE METABOLIC 93480 ALT 25 IU/L 2010 Unknown COMPREHENSIVE METABOLIC 39540 BUN 15 MG/DL 2010 Unknown COMPREHENSIVE METABOLIC 66930 ALBUMIN 4.6 GM/DL 2010 Unknown COMPREHENSIVE METABOLIC 33976 CHLORIDE 107 MMOL/L 03/14 Unknown COMPREHENSIVE METABOLIC 39033 BILI TOT 0.6 MG/DL 2010 Unknown COMPREHENSIVE METABOLIC 17585 ALK PHOS 54 U/L 2010 Unknown COMPREHENSIVE METABOLIC 01269 SODIUM 140 MMOL/L 03/14 Unknown COMPREHENSIVE METABOLIC 25916 CREATININE 1.02 MG/DL 12/2010 Unknown COMPREHENSIVE METABOLIC 53876 CALCIUM 9.4 MG/DL 2010 Unknown COMPREHENSIVE METABOLIC 04933 POTASSIUM 4.6 MMOL/L 03/14 Unknown COMPREHENSIVE METABOLIC 35869 PROT TOT 7.0 GM/DL 2010 Unknown COMPREHENSIVE METABOLIC 51222 Glucose 107 MG/DL 2010 Unknown COMPREHENSIVE METABOLIC 84975 BICARB 28 MMOL/L 2010 Unknown COMPREHENSIVE METABOLIC 60757 ANION GAP 5 MEQ/L 2010 Unknown LIPID GROUP 40812 HDL TEST 39 MG/DL 03/14/2011 Unknown LIPID GROUP 79449 TRIG 157 MG/DL 03/14/2011 Unknown LIPID GROUP 46149 TEST LDL 66 MG/DL 03/14/2011 Unknown LIPID GROUP 15572 CHOL 136 MG/DL 03/14/2011 Unknown LIPID GROUP 10580 RCHOL/HDL 3.49 RATIO 03/14/2011 Unknow n GFR CALC 3645336 GFR AA >60 ML/MIN 11/11/2010 Unknown GFR CALC 0981405 GFR NON-AA >60 ML/MIN 11/11/2010 Unknown LIPID GROUP 67440 HDL TEST 39 MG/DL 11/11/2010 Unknown LIPID GROUP 56940 TRIG 212 MG/DL 11/11/2010 Unknown LIPID GROUP 93779 TEST LDL 67 MG/DL 11/11/2010 Unknown LIPID GROUP 51547 CHOL 148 MG/DL 11/11/2010 Unknown LIPID GROUP 18374 RCHOL/HDL 3.79 RATIO 11/11/2010 Unknow n COMPREHENSIVE METABOLIC 47476 AST 17 U/L 2010 Unknown COMPREHENSIVE METABOLIC 35291 ALT 21 IU/L 2010 Unknown COMPREHENSIVE METABOLIC 92487 BUN 16 MG/DL 2010 Unknown COMPREHENSIVE METABOLIC 06289 ALBUMIN 4.6 GM/DL 2010 Unknown COMPREHENSIVE METABOLIC 77258 CHLORIDE 106 MMOL/L 11/11 Unknown COMPREHENSIVE METABOLIC 84959 BILI TOT 0.5 MG/DL 2010 Unknown COMPREHENSIVE METABOLIC 01988 ALK PHOS 61 U/L 2010 Unknown COMPREHENSIVE METABOLIC 17517 SODIUM 139 MMOL/L 11/11 Unknown COMPREHENSIVE METABOLIC 23992 CREATININE 1.00 MG/DL 11/2010 Unknown COMPREHENSIVE METABOLIC 96522 CALCIUM 9.5 MG/DL 2010 Unknown COMPREHENSIVE METABOLIC 60790 POTASSIUM 4.5 MMOL/L 11/11 Unknown COMPREHENSIVE METABOLIC 76332 PROT TOT 6.9 GM/DL 2010 Unknown COMPREHENSIVE METABOLIC 44798 Glucose 111 MG/DL 2010 Unknown COMPREHENSIVE METABOLIC 74420 BICARB 26 MMOL/L 2010 Unknown COMPREHENSIVE METABOLIC 62670 ANION GAP 7 MEQ/L 2010 Unknown HEMOGLOBIN A1C (GLYCOSYLATED) 75146 A1C HPLC 85171-4 5.6 % 07/24/2010 Unknown GFR CALC 4462623 GFR AA >60 ML/MIN 07/23/2010 Unknown GFR CALC 0909407 GFR NON-AA >60 ML/MIN 07/23/2010 Unknown COMPREHENSIVE METABOLIC 15034 AST 19 U/L 2010 Unknown COMPREHENSIVE METABOLIC 54624 ALT 33 IU/L 2010 Unknown COMPREHENSIVE METABOLIC 75616 BUN 14 MG/DL 2010 Unknown COMPREHENSIVE METABOLIC 83988 ALBUMIN 4.7 GM/DL 2010 Unknown COMPREHENSIVE METABOLIC 44855 CHLORIDE 107 MMOL/L 07/23 Unknown COMPREHENSIVE METABOLIC 16697 BILI TOT 0.4 MG/DL 2010 Unknown COMPREHENSIVE METABOLIC 80209 ALK PHOS 80 U/L 2010 Unknown COMPREHENSIVE METABOLIC 79267 SODIUM 141 MMOL/L 07/23 Unknown COMPREHENSIVE METABOLIC 48437 CREATININE 0.97 MG/DL 07/05 Unknown COMPREHENSIVE METABOLIC 18968 CALCIUM 9.5 MG/DL 2010 Unknown COMPREHENSIVE METABOLIC 62469 POTASSIUM 4.1 MMOL/L 07/23 Unknown COMPREHENSIVE METABOLIC 50177 PROT TOT 6.8 GM/DL 2010 Unknown COMPREHENSIVE METABOLIC 95244 Glucose 120 MG/DL 2010 Unknown COMPREHENSIVE METABOLIC 08331 BICARB 26 MMOL/L 2010 Unknown COMPREHENSIVE METABOLIC 47430 ANION GAP 8 MEQ/L 2010 Unknown LIPID GROUP 39458 HDL TEST 41 MG/DL 07/23/2010 Unknown LIPID GROUP 28584 TRIG 175 MG/DL 07/23/2010 Unknown LIPID GROUP 70788 TEST LDL 72 MG/DL 07/23/2010 Unknown LIPID GROUP 51601 CHOL 148 MG/DL 07/23/2010 Unknown LIPID GROUP 53499 RCHOL/HDL 3.61 RATIO 07/23/2010 Unknow n PSA FREE AND TOTAL 59063|11825 % FREE PSA FOOTNOTE % 011 Unknown PSA FREE AND TOTAL 48840|87256 XPSA TOTAL 0.83 NG/ML 011 Unknown PSA FREE AND TOTAL 98980|98844 XPSA FREE 0.13 NG/ML 04/26/19 11 Unknown VITAMIN D TOTAL (25 HYDROXY) 61065 VIT D TOTL 26 NG/ML 04/22/2010 Unknown TESTOSTERONE TOTAL 84885 TESTOS TO 387 NG/DL 04/19/2010 Unknown GFR CALC 0245765 GFR AA >60 ML/MIN 04/19/2010 Unknown GFR CALC 1896340 GFR NON-AA >60 ML/MIN 04/19/2010 Unknown COMPLETE BLOOD COUNT 62475 WBC 7.0 10e9/L 04/19/19 11 Unknown COMPLETE BLOOD COUNT 82348 RBC 5.07 10e12/L 2010 Unknown COMPLETE BLOOD COUNT 70558 HGB 15.6 g/dL 1 Unknown COMPLETE BLOOD COUNT 08233 HCT DET 46.2 % 1 Unknown COMPLETE BLOOD COUNT 91269 MCV 91.1 fL 1 Unknown COMPLETE BLOOD COUNT 47641 MCH 30.8 pg 1 Unknown COMPLETE BLOOD COUNT 67045 MCHC 33.8 g/dL 1 Unknown COMPLETE BLOOD COUNT 63392 PLT 205 10e9/L 04/19/19 11 Unknown COMPLETE BLOOD COUNT 44574 MPV 11.1 fL 1 Unknown COMPLETE BLOOD COUNT 81231 SAMIR % 62.4 % 1 Unknown COMPLETE BLOOD COUNT 85400 LY % 28.5 % 1 Unknown COMPLETE BLOOD COUNT 96270 MON % 6.9 % 1 Unknown COMPLETE BLOOD COUNT 82138 EOS % 2.1 % 1 Unknown COMPLETE BLOOD COUNT 63827 BASO % 0.1 % 1 Unknown COMPLETE BLOOD COUNT 58522 RDW 13.4 % 1 Unknown COMPLETE BLOOD COUNT 64915 ABS SAMIR 4.37 10e9/L 011 Unknown COMPLETE BLOOD COUNT 38351 ABS LYMPH 2.00 10e9/L 011 Unknown COMPLETE BLOOD COUNT 78492 ABS MONO 0.48 10e9/L 011 Unknown COMPLETE BLOOD COUNT 60581 ABS EOS 0.15 10e9/L 011 Unknown COMPLETE BLOOD COUNT 46957 ABS BASO 0.01 10e9/L 011 Unknown COMPLETE BLOOD COUNT 56668 RDW-SD 43.8 fL 1 Unknown LIPID GROUP 93913 HDL TEST 39 MG/DL 04/19/2010 Unknown LIPID GROUP 91222 TRIG 244 MG/DL 04/19/2010 Unknown LIPID GROUP 18844 TEST LDL 168 MG/DL 04/19/2010 Unknown LIPID GROUP 48649 CHOL 256 MG/DL 04/19/2010 Unknown LIPID GROUP 61777 RCHOL/HDL 6.56 RATIO 04/19/2010 Unknow n COMPREHENSIVE METABOLIC 07157 AST 28 U/L 2010 Unknown COMPREHENSIVE METABOLIC 78302 ALT 46 IU/L 2010 Unknown COMPREHENSIVE METABOLIC 49940 BUN 14 MG/DL 2010 Unknown COMPREHENSIVE METABOLIC 23770 ALBUMIN 4.9 GM/DL 2010 Unknown COMPREHENSIVE METABOLIC 96678 CHLORIDE 104 MMOL/L 04/19 Unknown COMPREHENSIVE METABOLIC 87469 BILI TOT 0.8 MG/DL 2010 Unknown COMPREHENSIVE METABOLIC 15732 ALK PHOS 71 U/L 2010 Unknown COMPREHENSIVE METABOLIC 09324 SODIUM 139 MMOL/L 04/19 Unknown COMPREHENSIVE METABOLIC 16507 CREATININE 1.06 MG/DL 04/06 Unknown COMPREHENSIVE METABOLIC 43599 CALCIUM 9.9 MG/DL 2010 Unknown COMPREHENSIVE METABOLIC 64727 POTASSIUM 4.3 MMOL/L 04/19 Unknown COMPREHENSIVE METABOLIC 74062 PROT TOT 7.2 GM/DL 2010 Unknown COMPREHENSIVE METABOLIC 51160 Glucose 99 MG/DL 2010 Unknown COMPREHENSIVE METABOLIC 98917 BICARB 28 MMOL/L 2010 Unknown COMPREHENSIVE METABOLIC 19884 ANION GAP 7 MEQ/L 2010 Unknown FREE T4 80712 FREE T4 1.26 NG/DL 04/19/2010 Unknown Procedures Procedure Codes Date ROUTINE VENIPUNCTURE CPT-4: 82762 05/24/2019 COMPREHEN METABOLIC PANEL CPT-4: 15498 05/24/2019 A1C HPLC CPT-4: 93443 05/24/2019 FLU VACC PRSV FREE INC ANTIG 65 AND OLDER CPT-4: 17196 01/26/2019 FLU VACC PRSV FREE INC ANTIG 65 AND OLDER CPT-4: 89673 01/26/2019 ADMIN INFLUENZA VIRUS VAC CPT-4: G0008 01/26/2019 ROUTINE VENIPUNCTURE CPT-4: 54871 01/26/2019 COMPREHEN METABOLIC PANEL CPT-4: 81705 01/26/2019 COMPLETE CBC W/AUTO DIFF WBC CPT-4: 13260 01/26/2019 LIPID PANEL CPT-4: 16333 01/26/2019 A1C HPLC CPT-4: 35937 01/26/2019 ROUTINE VENIPUNCTURE CPT-4: 41876 09/30/2018 METABOLIC PANEL TOTAL CA CPT-4: 35930 09/30/2018 URINALYSIS NONAUTO W/O SCOPE CPT-4: 72354 08/19/2018 URINE CULTURE/ COLONY COUNT CPT-4: 18644 08/19/2018 MICROALBUMIN QUANTITATIVE CPT-4: 23363 08/19/2018 ROUTINE VENIPUNCTURE CPT-4: 08963 08/16/2018 ASSAY THYROID STIM HORMONE CPT-4: 45663 08/16/2018 COMPREHEN METABOLIC PANEL CPT-4: 35220 08/16/2018 COMPLETE CBC W/AUTO DIFF WBC CPT-4: 63798 08/16/2018 LIPID PANEL CPT-4: 05090 08/16/2018 A1C HPLC CPT-4: 60105 08/16/2018 LIPID PANEL CPT-4: 73499 05/05/2018 COMPREHEN METABOLIC PANEL CPT-4: 12789 05/05/2018 ROUTINE VENIPUNCTURE CPT-4: 91324 05/05/2018 A1C HPLC CPT-4: 69869 05/05/2018 COMPLETE CBC W/AUTO DIFF WBC CPT-4: 55012 05/05/2018 ASSAY THYROID STIM HORMONE CPT-4: 84848 05/05/2018 MICROALBUMIN QUANTITATIVE CPT-4: 27244 01/19/2018 PRESCRIP TRANSMIT VIA ERX SY CPT-4: G8553 01/19/2018 ROUTINE VENIPUNCTURE CPT-4: 82794 01/13/2018 COMPREHEN METABOLIC PANEL CPT-4: 83559 01/13/2018 A1C HPLC CPT-4: 03012 01/13/2018 LIPID PANEL CPT-4: 78451 01/13/2018 ASSAY OF PSA TOTAL CPT-4: 42321 01/13/2018 ASSAY THYROID STIM HORMONE CPT-4: 29670 01/13/2018 ROUTINE VENIPUNCTURE CPT-4: 74329 10/06/2017 COMPREHEN METABOLIC PANEL CPT-4: 54682 10/06/2017 COMPLETE CBC W/AUTO DIFF WBC CPT-4: 60342 10/06/2017 LIPID PANEL CPT-4: 35949 10/06/2017 A1C HPLC CPT-4: 30214 10/06/2017 VITAMIN B-12 CPT-4: 21201 10/06/2017 DESTRUCT PREMALG LESION (Cryosurgery) CPT-4: 93501 DESTRUCT PREMALG LES 2-14 CPT-4: 84793 04/23/2017 PRESCRIP TRANSMIT VIA ERX SY CPT-4: G8553 03/11/2017 ROUTINE VENIPUNCTURE CPT-4: 90041 03/05/2017 ASSAY OF FREE THYROXINE CPT-4: 88911 03/05/2017 ASSAY THYROID STIM HORMONE CPT-4: 86786 03/05/2017 COMPREHEN METABOLIC PANEL CPT-4: 29840 03/05/2017 COMPLETE CBC W/AUTO DIFF WBC CPT-4: 65700 03/05/2017 LIPID PANEL CPT-4: 72877 03/05/2017 A1C HPLC CPT-4: 78464 03/05/2017 ROUTINE VENIPUNCTURE CPT-4: 71355 06/16/2016 ASSAY OF FREE THYROXINE CPT-4: 15049 06/16/2016 ASSAY THYROID STIM HORMONE CPT-4: 37738 06/16/2016 COMPREHEN METABOLIC PANEL CPT-4: 09260 06/16/2016 COMPLETE CBC W/AUTO DIFF WBC CPT-4: 52984 06/16/2016 LIPID PANEL CPT-4: 22137 06/16/2016 A1C HPLC CPT-4: 41900 06/16/2016 ROUTINE VENIPUNCTURE CPT-4: 44072 03/06/2016 ASSAY OF FREE THYROXINE CPT-4: 75686 03/06/2016 ASSAY THYROID STIM HORMONE CPT-4: 70767 03/06/2016 COMPREHEN METABOLIC PANEL CPT-4: 99905 03/06/2016 COMPLETE CBC W/AUTO DIFF WBC CPT-4: 63067 03/06/2016 LIPID PANEL CPT-4: 00088 03/06/2016 A1C HPLC CPT-4: 63486 03/06/2016 PRESCRIP TRANSMIT VIA ERX SY CPT-4: G8553 09/10/2015 PNEUMOCOCCAL VACC 23 ROSANNE IM CPT-4: 12201 09/06/2015 ADMIN PNEUMOCOCCAL VACCINE CPT-4: G0009 09/06/2015 ROUTINE VENIPUNCTURE CPT-4: 75213 08/31/2015 COMPREHEN METABOLIC PANEL CPT-4: 89456 08/31/2015 COMPLETE CBC W/AUTO DIFF WBC CPT-4: 00203 08/31/2015 LIPID PANEL CPT-4: 71671 08/31/2015 ASSAY OF PSA TOTAL CPT-4: 40473 08/31/2015 A1C HPLC CPT-4: 00825 08/31/2015 ASSAY OF FREE THYROXINE CPT-4: 83982 08/31/2015 ASSAY THYROID STIM HORMONE CPT-4: 19380 08/31/2015 PRESCRIP TRANSMIT VIA ERX SY CPT-4: G8553 06/29/2015 FLU VACC PRSV FREE INC ANTIG 65 AND OLDER CPT-4: 36192 01/17/2015 PNEUMOCOCCAL VACC 13 ROSANNE IM CPT-4: 05261 01/17/2015 ADMIN INFLUENZA VIRUS VAC CPT-4: G0008 01/17/2015 ADMIN PNEUMOCOCCAL VACCINE CPT-4: G0009 01/17/2015 DESTRUCT PREMALG LESION (Cryosurgery) CPT-4: 80977 PRESCRIP TRANSMIT VIA ERX SY CPT-4: G8553 01/17/2015 ROUTINE VENIPUNCTURE CPT-4: 33431 01/12/2015 COMPREHEN METABOLIC PANEL CPT-4: 94858 01/12/2015 COMPLETE CBC W/AUTO DIFF WBC CPT-4: 17469 01/12/2015 LIPID PANEL CPT-4: 00780 01/12/2015 A1C HPLC CPT-4: 78199 01/12/2015 DESTRUCT PREMALG LESION (Cryosurgery) CPT-4: 24810 ROUTINE VENIPUNCTURE CPT-4: 77164 08/15/2014 COMPREHEN METABOLIC PANEL CPT-4: 60359 08/15/2014 COMPLETE CBC W/AUTO DIFF WBC CPT-4: 80347 08/15/2014 LIPID PANEL CPT-4: 29468 08/15/2014 A1C HPLC CPT-4: 94652 08/15/2014 ASSAY OF PSA TOTAL CPT-4: 32985 08/15/2014 ASSAY OF FREE THYROXINE CPT-4: 79448 08/15/2014 ASSAY THYROID STIM HORMONE CPT-4: 30937 08/15/2014 ROUTINE VENIPUNCTURE CPT-4: 21674 12/14/2013 ASSAY OF FREE THYROXINE CPT-4: 85981 12/14/2013 ASSAY THYROID STIM HORMONE CPT-4: 28194 12/14/2013 COMPREHEN METABOLIC PANEL CPT-4: 83862 12/14/2013 COMPLETE CBC W/AUTO DIFF WBC CPT-4: 21089 12/14/2013 LIPID PANEL CPT-4: 01683 12/14/2013 A1C HPLC CPT-4: 15120 12/14/2013 ROUTINE VENIPUNCTURE CPT-4: 44430 06/08/2013 ASSAY OF FREE THYROXINE CPT-4: 37663 06/08/2013 ASSAY THYROID STIM HORMONE CPT-4: 06062 06/08/2013 COMPREHEN METABOLIC PANEL CPT-4: 79576 06/08/2013 COMPLETE CBC W/AUTO DIFF WBC CPT-4: 13743 06/08/2013 LIPID PANEL CPT-4: 01628 06/08/2013 A1C HPLC CPT-4: 17709 06/08/2013 ROUTINE VENIPUNCTURE CPT-4: 27048 11/11/2012 COMPREHEN METABOLIC PANEL CPT-4: 13474 11/11/2012 COMPLETE CBC W/AUTO DIFF WBC CPT-4: 46190 11/11/2012 LIPID PANEL CPT-4: 90107 11/11/2012 A1C GLYCOSYLATED HEMOGLOBIN TEST CPT-4: 30705 013 ASSAY THYROID STIM HORMONE CPT-4: 83581 11/11/2012 ROUTINE VENIPUNCTURE CPT-4: 03573 05/04/2012 ASSAY OF FREE THYROXINE CPT-4: 14634 05/04/2012 ASSAY THYROID STIM HORMONE CPT-4: 73652 05/04/2012 COMPREHEN METABOLIC PANEL CPT-4: 90209 05/04/2012 COMPLETE CBC W/AUTO DIFF WBC CPT-4: 37827 05/04/2012 LIPID PANEL CPT-4: 96833 05/04/2012 DESTRUCT PREMALG LESION (Cryosurgery) CPT-4: 26837 DESTRUCT PREMALG LES 2-14 CPT-4: 69784 03/02/2012 ROUTINE VENIPUNCTURE CPT-4: 82906 10/29/2011 COMPREHEN METABOLIC PANEL CPT-4: 77226 10/29/2011 LIPID PANEL CPT-4: 25800 10/29/2011 A1C GLYCOSYLATED HEMOGLOBIN TEST CPT-4: 28595 012 ROUTINE VENIPUNCTURE CPT-4: 21172 07/29/2011 COMPREHEN METABOLIC PANEL CPT-4: 50698 07/29/2011 LIPID PANEL CPT-4: 99921 07/29/2011 A1C GLYCOSYLATED HEMOGLOBIN TEST CPT-4: 31908 012 ROUTINE VENIPUNCTURE CPT-4: 13756 03/14/2011 COMPREHEN METABOLIC PANEL CPT-4: 84909 03/14/2011 LIPID PANEL CPT-4: 02663 03/14/2011 A1C GLYCOSYLATED HEMOGLOBIN TEST CPT-4: 47487 011 ROUTINE VENIPUNCTURE CPT-4: 69134 11/11/2010 COMPREHEN METABOLIC PANEL CPT-4: 42674 11/11/2010 LIPID PANEL CPT-4: [id number] 11/11/2010 URINE CULTURE/ COLONY COUNT CPT-4: 42428 11/11/2010 URINALYSIS NONAUTO W/O SCOPE CPT-4: 93257 10/29/2010 URINE CULTURE/ COLONY COUNT CPT-4: 11811 10/29/2010 LIPID PANEL CPT-4: 95703 07/23/2010 COMPREHEN METABOLIC PANEL CPT-4: 77005 07/23/2010 ROUTINE VENIPUNCTURE CPT-4: 63972 07/23/2010 ROUTINE VENIPUNCTURE CPT-4: 29084 04/26/2010 PSA FREE AND TOTAL CPT-4: 96187|00746 04/26/2010 OCCULT BLOOD FECES CPT-4: 54230 04/24/2010 ROUTINE VENIPUNCTURE CPT-4: 45502 04/19/2010 COMPLETE CBC W/AUTO DIFF WBC CPT-4: 04863 04/19/2010 COMPREHEN METABOLIC PANEL CPT-4: 63412 04/19/2010 LIPID PANEL CPT-4: 30301 04/19/2010 TESTOSTERONE TOTAL - MALE CPT-4: 30348 04/19/2010 ASSAY THYROID STIM HORMONE CPT-4: 86919 04/19/2010 ASSAY OF FREE THYROXINE CPT-4: 94169 04/19/2010 VITAMIN D TOTAL (25 HYDROXY) CPT-4: 09987 04/19/2010 Vital Signs Date Vital 06/02/2019 Blood Pressure 1: 132/80 Code: 8480-6 BMI: 29.5 Code: 78841-5 Heart Rate 1: 64 bpm Height: 6'3" [...] 1: 112/70 Code: 8480-6 BMI: 28.9 Code: 67656-5 Heart Rate 1: 60 bpm Height: 6'3" Respiratory Rate: 20 bpm SpO2: 95% Tempera ture: 36.6 (C) / 97.9 (F) Weight: 231 lbs 01/19/2018 Blood Pressure 1: 150/82 Code: 8480-6 Heart Rate 1: 63 bpm Respiratory Rate: 18 bpm SpO2: 98% Temperature: 36.0 (C) / 96.8 (F) We ight: 225 lbs 10/15/2017 Blood Pressure 1: 126/82 Code: 8480-6 BMI: 27.9 Code: 08129-8 Heart Rate 1: 64 bpm Height: 6'3" Respiratory Rate: 20 bpm SpO2: 96% Tempera ture: 36.7 (C) / 98.1 (F) Weight: 223 lbs 04/23/2017 Blood Pressure 1: 136/74 Code: 8480-6 BMI: 28.7 Code: 06223-4 Heart Rate 1: 76 bpm Height: 6'3" Respiratory Rate: 20 bpm Temperature: 37 .0 (C) / 98.6 (F) Weight: 230 lbs 03/11/2017 Blood Pressure 1: 136/66 Code: 8480-6 BMI: 28.6 Code: 89410-7 Heart Rate 1: 60 bpm Height: 6'3" Respiratory Rate: 20 bpm Temperature: 36 .7 (C) / 98.1 (F) Weight: 229 lbs 07/09/2016 Blood Pressure 1: 132/80 Code: 8480-6 BMI: 27.7 Code: 14732-0 Heart Rate 1: 64 bpm Height: 6'3" Respiratory Rate: 20 bpm SpO2: 96% Tempera ture: 36.9 (C) / 98.4 (F) Weight: 222 lbs 03/10/2016 Blood Pressure 1: 134/78 Code: 8480-6 BMI: 28.5 Code: 88480-5 Heart Rate 1: 60 bpm Height: 6'3" Respiratory Rate: 20 bpm SpO2: 96% Tempera ture: 36.7 (C) / 98.1 (F) Weight: 228 lbs 09/12/2015 Blood Pressure 1: 136/78 Code: 8480-6 Heart Rate 1: 84 bpm Height: Respiratory Rate: 24 bpm SpO2: 97% Temperature: 36.4 (C) / 97.6 (F) We ight: 09/10/2015 Blood Pressure 1: 124/76 Code: 8480-6 BMI: 28.5 Code: 14433-4 Heart Rate 1: 76 bpm Height: 6'3" Respiratory Rate: 24 bpm SpO2: 97% Tempera ture: 36.4 (C) / 97.6 (F) Weight: 228 lbs 09/06/2015 Blood Pressure 1: 124/82 Code: 8480-6 BMI: 29.0 Code: 14538-1 Heart Rate 1: 66 bpm Height: 6'3" Respiratory Rate: 20 bpm SpO2: 97% Tempera ture: 36.4 (C) / 97.6 (F) Weight: 232 lbs 06/29/2015 Blood Pressure 1: 124/82 Code: 8480-6 Heart Rate 1: 88 bpm Height: Respiratory Rate: 20 bpm Temperature: 36.7 (C) / 98.1 (F) Weight: 01/17/2015 Blood Pressure 1: 124/78 Code: 8480-6 BMI: 27.7 Code: 78735-7 Heart Rate 1: 76 bpm Height: 6'3" Respiratory Rate: 20 bpm Temperature: 36 .6 (C) / 97.8 (F) Weight: 222 lbs 09/19/2014 Blood Pressure 1: 128/80 Code: 8480-6 BMI: 27.4 Code: 06532-4 Heart Rate 1: 64 bpm Height: 6'3" Respiratory Rate: 20 bpm Temperature: 36 .4 (C) / 97.6 (F) Weight: 219 lbs 10/17/2013 Blood Pressure 1: 116/70 Code: 8480-6 Heart Rate 1: 88 bpm Respiratory Rate: 20 bpm Temperature: 36.9 (C) / 98.4 (F) Weight: 220 lbs 09/23/2013 Blood Pressure 1: 124/80 Code: 8480-6 BMI: 28.7 Code: 20817-0 Heart Rate 1: 76 bpm Height: 6'3" Respiratory Rate: 20 bpm Temperature: 36 .8 (C) / 98.2 (F) Weight: 230 lbs 07/22/2013 Blood Pressure 1: 128/70 Code: 8480-6 He art Rate 1: 78 bpm 06/20/2013 Blood Pressure 1: 144/86 Code: 8480-6 BMI: 28.7 Code: 38085-8 Heart Rate 1: 92 bpm Height: 6'3" Respiratory Rate: 20 bpm Temperature: 36 .4 (C) / 97.6 (F) Weight: 230 lbs 11/25/2012 Blood Pressure 1: 128/80 Code: 8480-6 BMI: 27.5 Code: 10875-2 Heart Rate 1: 92 bpm Height: 6'3" Respiratory Rate: 20 bpm Temperature: 36 .8 (C) / 98.3 (F) Weight: 220 lbs 08/27/2012 Blood Pressure 1: 142/80 Code: 8480-6 BMI: 27.7 Code: 42647-3 Heart Rate 1: 76 bpm Height: 6'3" Respiratory Rate: 20 bpm Temperature: 36 .8 (C) / 98.3 (F) Weight: 222 lbs 05/11/2012 Blood Pressure 1: 136/80 Code: 8480-6 BMI: 27.7 Code: 07407-7 Heart Rate 1: 76 bpm Height: 6'3" Respiratory Rate: 20 bpm Temperature: 36 .8 (C) / 98.3 (F) Weight: 222 lbs 03/02/2012 Blood Pressure 1: 136/70 Code: 8480-6 BMI: 28.0 Code: 47031-8 Heart Rate 1: 80 bpm Height: 6'3" Respiratory Rate: 20 bpm Temperature: 36 .6 (C) / 97.8 (F) Weight: 224 lbs 12/11/2011 Blood Pressure 1: 142/80 Code: 8480-6 BMI: 27.1 Code: 01339-9 Heart Rate 1: 84 bpm Height: 6'3" Respiratory Rate: 20 bpm Temperature: 36 .9 (C) / 98.4 (F) Weight: 217 lbs 08/14/2011 Blood Pressure 1: 130/82 Code: 8480-6 He art Rate 1: 64 bpm 07/29/2011 Blood Pressure 1: 132/64 Code: 8480-6 BMI: 26.7 Code: 90928-8 Heart Rate 1: 72 bpm Height: 6'3" [...] 1: 142/88 Code: 8480-6 BMI: 26.4 Code: 09512-7 Heart Rate 1: 80 bpm Height: 6'3" [...] labs Encounters Encounter Performer Location Codes Date ([id number]) OFFICE/OUTPATIENT VISIT EST Diagnosis: Essential (primary) hypertension[ICD10: I10] Diagnosis: Gastro-esophageal reflux disease without esophagitis[ICD10: K21.9] Diagnosis: Type 2 diabetes mellitus with hyperglycemia[ICD10: E11.65] Najma MCARTHUR [employer] CPT-4: 55375 06/02/2019 ([id number]) NURSE/OUTPATIENT VISIT EST Diagnosis: Type 2 diabetes mellitus without complications[ICD10: E11.9] Diagnosis: Essential (primary) hypertension[ICD10: I10] Diagnosis: Mixed hyperlipidemia[ICD10: E78.2] Najma ROWAN [employer] CPT-4: 29412 05/24/2019 ([id number]) OFFICE/OUTPATIENT VISIT EST Diagnosis: Essential (primary) hypertension[ICD10: I10] Diagnosis: Type 2 diabetes mellitus without complications[ICD10: E11.9] Diagnosis: Mixed hyperlipidemia[ICD10: E78.2] Najma ROWAN [employer] CPT-4: 67140 01/31/2019 ([id number]) NURSE/OUTPATIENT VISIT EST Diagnosis: Mixed hyperlipidemia[ICD10: E78.2] Diagnosis: Type 2 diabetes mellitus without complications[ICD10: E11.9] Diagnosis: Essential (primary) hypertension[ICD10: I10] Diagnosis: Chronic kidney disease, unspecified[ICD10: N18.9] Najma MCARTHUR [employer] CPT-4: 40652 01/26/2019 ([id number]) NURSE/OUTPATIENT VISIT EST Diagnosis: Chronic kidney disease, unspecified[ICD10: N18.9] Diagnosis: Essential (primary) hypertension[ICD10: I10] Najma OG DO [facility] CPT-4: 40745 09/30/2018 ([id number]) OFFICE/OUTPATIENT VISIT EST Diagnosis: Essential (primary) hypertension[ICD10: I10] Diagnosis: Type 2 diabetes mellitus without complications[ICD10: E11.9] Diagnosis: Mixed hyperlipidemia[ICD10: E78.2] Diagnosis: Unspecified kidney failure[ICD10: N19] Najma OG [employer] CPT-4: 91141 08/19/2018 ([id number]) NURSE/OUTPATIENT VISIT EST Diagnosis: Essential (primary) hypertension[ICD10: I10] Diagnosis: Type 1 diabetes mellitus with unspecified complications[ICD10: E10.8] Diagnosis: Mixed hyperlipidemia[ICD10: E78.2] Najma OG [employer] CPT-4: 65017 08/16/2018 ([id number]) OFFICE/OUTPATIENT VISIT EST Diagnosis: Essential (primary) hypertension[ICD10: I10] Diagnosis: Type 2 diabetes mellitus without complications[ICD10: E11.9] Diagnosis: Mixed hyperlipidemia[ICD10: E78.2] Najma OG [employer] CPT-4: 28029 05/10/2018 ([id number]) NURSE/OUTPATIENT VISIT EST Diagnosis: Essential (primary) hypertension[ICD10: I10] Diagnosis: Mixed hyperlipidemia[ICD10: E78.2] Diagnosis: Type 1 diabetes mellitus with unspecified complications[ICD10: E10.8] Najma OG [employer] CPT-4: 80712 05/05/2018 ([id number]) OFFICE/OUTPATIENT VISIT EST Diagnosis: Type 2 diabetes mellitus without complications[ICD10: E11.9] Diagnosis: Mixed hyperlipidemia[ICD10: E78.2] Diagnosis: Nicotine dependence, unspecified, uncomplicated[ICD10: F17.200] Diagnosis: Essential (primary) hypertension[ICD10: I10] Najma OG [employer] CPT-4: 06970 01/19/2018 ([id number]) NURSE/OUTPATIENT VISIT EST Diagnosis: Type 1 diabetes mellitus with unspecified complications[ICD10: E10.8] Diagnosis: Essential (primary) hypertension[ICD10: I10] Diagnosis: Male erectile disorder[ICD10: F52.21] Diagnosis: Encounter for screening for malignant neoplasm of prostate[ICD10: Z12.5] Najma OG [employer] CPT-4: 66914 01/13/2018 ([id number]) OFFICE/OUTPATIENT VISIT EST Diagnosis: Type 2 diabetes mellitus without complications[ICD10: E11.9] Diagnosis: Essential (primary) hypertension[ICD10: I10] Diagnosis: Mixed hyperlipidemia[ICD10: E78.2] Najma OG [employer] [facility] CPT-4: 99673 10/15/2017 ([id number]) NURSE/OUTPATIENT VISIT EST Diagnosis: Type 2 diabetes mellitus without complications[ICD10: E11.9] Diagnosis: Mixed hyperlipidemia[ICD10: E78.2] Diagnosis: Essential (primary) hypertension[ICD10: I10] Diagnosis: Glossitis[ICD10: K14.0] Najma THAKKAR [employer] CPT-4: 97014 10/06/2017 ([id number]) OFFICE/OUTPATIENT VISIT EST Diagnosis: Type 2 diabetes mellitus without complications[ICD10: E11.9] Diagnosis: Mixed hyperlipidemia[ICD10: E78.2] Diagnosis: Essential (primary) hypertension[ICD10: I10] Najma OG [employer] [facility] CPT-4: 36455 03/11/2017 ([id number]) OFFICE/OUTPATIENT VISIT EST Diagnosis: Type 1 diabetes mellitus with unspecified complications[ICD10: E10.8] Diagnosis: Mixed hyperlipidemia[ICD10: E78.2] Diagnosis: Essential (primary) hypertension[ICD10: I10] Diagnosis: Other fatigue[ICD10: R53.83] Najma OG [employer] CPT-4: 72181 03/05/2017 ([id number]) OFFICE/OUTPATIENT VISIT EST Diagnosis: Type 2 diabetes mellitus without complications[ICD10: E11.9] Diagnosis: Mixed hyperlipidemia[ICD10: E78.2] Diagnosis: Essential (primary) hypertension[ICD10: I10] Diagnosis: Nicotine dependence, unspecified, uncomplicated[ICD10: F17.200] Najma OG DO [facility] CPT-4: 11869 07/09/2016 ([id number]) OFFICE/OUTPATIENT VISIT EST Diagnosis: Type 1 diabetes mellitus with unspecified complications[ICD10: E10.8] Diagnosis: Mixed hyperlipidemia[ICD10: E78.2] Diagnosis: Essential (primary) hypertension[ICD10: I10] Najma OG DO [facility] CPT-4: 14641 06/16/2016 ([id number]) OFFICE/OUTPATIENT VISIT EST Diagnosis: Type 2 diabetes mellitus without complications[ICD10: E11.9] Diagnosis: Mixed hyperlipidemia[ICD10: E78.2] Diagnosis: Essential (primary) hypertension[ICD10: I10] Najam OG DO [facility] CPT-4: 06706 03/10/2016 ([id number]) OFFICE/OUTPATIENT VISIT EST Diagnosis: Type 1 diabetes mellitus with unspecified complications[ICD10: E10.8] Diagnosis: Mixed hyperlipidemia[ICD10: E78.2] Diagnosis: Essential (primary) hypertension[ICD10: I10] Najma OG DO [facility] CPT-4: 41639 03/06/2016 ([id number]) OFFICE/OUTPATIENT VISIT EST Diagnosis: Bitten or stung by nonvenomous insect and other nonvenomous arthropods, subsequent encounter[ICD10: W57.XXXD] Diagnosis: Insect bite (nonvenomous), right thigh, subsequent encounter[ICD10: S70.361D] Barbara OG [employer] [facility] CPT-4: 47162 11/2015 ([id number]) OFFICE/OUTPATIENT VISIT EST Diagnosis: Bitten or stung by nonvenomous insect and other nonvenomous arthropods, initial encounter[ICD10: W57.XXXA] Diagnosis: Insect bite (nonvenomous), right thigh, initial encounter[ICD10: S70.361A] Barbara OG DO [facility] CPT-4: 79087 09/2015 ([id number]) OFFICE/OUTPATIENT VISIT EST Diagnosis: Mixed hyperlipidemia[ICD10: E78.2] Diagnosis: Essential (primary) hypertension[ICD10: I10] Diagnosis: Type 2 diabetes mellitus without complications[ICD10: E11.9] Diagnosis: Encounter for immunization[ICD10: Z23] Diagnosis: Encounter for screening for malignant neoplasm of colon[ICD10: Z12.11] Diagnosis: Abnormal weight gain[ICD10: R63.5] Barbara GODINEZ AmeenaMatilde MERCEDES [employer] [facility] CPT-4: 42318 09/06/2015 ([id number]) OFFICE/OUTPATIENT VISIT EST Diagnosis: Type 2 diabetes mellitus without complications[ICD10: E11.9] Diagnosis: Mixed hyperlipidemia[ICD10: E78.2] Diagnosis: Essential (primary) hypertension[ICD10: I10] Diagnosis: Encounter for screening for malignant neoplasm of prostate[ICD10: Z12.5] Diagnosis: Other fatigue[ICD10: R53.83] Najma MCARTUHR AmeenaMatilde Clarassance [employer] [facility] CPT-4: 14856 08/31/2015 OFFICE/OUTPATIENT VISIT EST Diagnosis: Diarrhea, unspecified[ICD10: R19.7] Henrietta MCCOY [employer]meenaMatilde [employer] [facility] CPT-4: 54446 06/29/2015 OFFICE/OUTPATIENT VISIT EST Diagnosis: PNEUMOCOCCAL VACCINE[ICD10: Z23] Diagnosis: FLU VACCINE[ICD10: Z23] Diagnosis: Essential (primary) hypertension[ICD10: I10] Diagnosis: Mixed hyperlipidemia[ICD10: E78.2] Diagnosis: Type 1 diabetes mellitus with unspecified complications[ICD10: E10.8] Diagnosis: Actinic keratosis[ICD10: L57.0] Najma MCARTHUR [employer] [facility] CPT-4: 97885 01/17/2015 ([id number]) OFFICE/OUTPATIENT VISIT EST Diagnosis: Type 2 diabetes mellitus without complications[ICD10: E11.9] Diagnosis: Impaired fasting glucose[ICD10: R73.01] Diagnosis: Mixed hyperlipidemia[ICD10: E78.2] Diagnosis: Essential (primary) hypertension[ICD10: I10] Najma Grey [employer] [facility] CPT-4: 33052 01/12/2015 ([id number]) OFFICE/OUTPATIENT VISIT EST Diagnosis: - I - HYPERLIPIDEMIA NEC/NOS[ICD9: 272.4] Diagnosis: HYPERTENSION[ICD9: 401.9] Diagnosis: DM W/O COMPLICATION TYPE II[ICD9: 250.00] Diagnosis: ACTINIC KERATOSIS[ICD9: 702.0] Najma OG [facility] CPT-4: 06752 09/19/2014 ([id number]) OFFICE/OUTPATIENT VISIT EST Diagnosis: HYPERLIPIDEMIA NEC/NOS[ICD9: 272.4] Diagnosis: HYPERTENSION[ICD9: 401.9] Diagnosis: IMPAIRED FASTING GLUCOSE[ICD9: 790.21] Diagnosis: MALAISE AND FATIGUE[ICD9: 780.79] Najma LONG [employer] [facility] CPT-4: 54833 08/15/2014 ([id number]) OFFICE/OUTPATIENT VISIT EST Diagnosis: HYPERLIPIDEMIA NEC/NOS[ICD9: 272.4] Diagnosis: HYPERTENSION[ICD9: 401.9] Diagnosis: IMPAIRED FASTING GLUCOSE[ICD9: 790.21] Najma HAQUE CECILIA LONG [employer] [facility] CPT-4: 40958 12/14/2013 ([id number]) OFFICE/OUTPATIENT VISIT EST Diagnosis: Post herpetic neuralgia[ICD9: 053.19] Najma LONG [employer] [facility] CPT-4: 07989 10/17/2013 OFFICE/OUTPATIENT VISIT EST Diagnosis: Shingles[ICD9: 053.9] Diagnosis: Post herpetic neuralgia[ICD9: 053.19] Jeanie ABBOTTDELTA LONG [employer] [facility] CPT-4: 63696 09/23/2013 ([id number]) OFFICE/OUTPATIENT VISIT EST Diagnosis: HYPERTENSION[ICD9: 401.9] Diagnosis: HYPERLIPIDEMIA NEC/NOS[ICD9: 272.4] Diagnosis: IMPAIRED FASTING GLUCOSE[ICD9: 790.21] Najmaanaid LONG [employer] [facility] CPT-4: 42160 06/20/2013 ([id number]) OFFICE/OUTPATIENT VISIT EST Diagnosis: HYPERLIPIDEMIA NEC/NOS[ICD9: 272.4] Diagnosis: MALAISE AND FATIGUE[ICD9: 780.79] Diagnosis: ROUTINE MEDICAL EXAM[ICD9: V70.0] Diagnosis: HYPERTENSION[ICD9: 401.9] Diagnosis: IMPAIRED FASTING GLUCOSE[ICD9: 790.21] Najma CHAPMAN Matilda OG [employer] CPT-4: 24726 06/08/2013 ([id number]) OFFICE/OUTPATIENT VISIT EST Diagnosis: HYPERLIPIDEMIA NEC/NOS[ICD9: 272.4] Diagnosis: HYPERTENSION[ICD9: 401.9] Diagnosis: IMPAIRED FASTING GLUCOSE[ICD9: 790.21] Diagnosis: DIARRHEA[ICD9: 787.91] Najma MCARTHUR AmeenaMatilde BRITTNI Stallings [employer] CPT-4: 60726 11/25/2012 ([id number]) OFFICE/OUTPATIENT VISIT EST Diagnosis: HYPERLIPIDEMIA NEC/NOS[ICD9: 272.4] Diagnosis: HYPERTENSION[ICD9: 401.9] Diagnosis: IMPAIRED FASTING GLUCOSE[ICD9: 790.21] Diagnosis: MALAISE AND FATIGUE[ICD9: 780.79] Najma Heverlane Jenkins AmeenaMatilde [employer] CPT-4: 74454 11/11/2012 OFFICE/OUTPATIENT VISIT EST Diagnosis: Fungal dermatitis[ICD9: 111.9] Diagnosis: Dry skin dermatitis[ICD9: 692.89] Henrietta Jenkins AmeenaMatilde [employer] CPT-4: 83496 08/27/2012 ([id number]) OFFICE/OUTPATIENT VISIT EST Diagnosis: HYPERTENSION[ICD9: 401.9] Diagnosis: HYPERLIPIDEMIA NEC/NOS[ICD9: 272.4] Najma MCCOY [employer]enaMatilde [employer] CPT-4: 16149 05/11/2012 ([id number]) OFFICE/OUTPATIENT VISIT EST Diagnosis: HYPERLIPIDEMIA NEC/NOS[ICD9: 272.4] Diagnosis: HYPERTENSION[ICD9: 401.9] Diagnosis: ROUTINE MEDICAL EXAM[ICD9: V70.0] Najma Jenkins AmeenaMatilde [employer] CPT-4: 79526 05/04/2012 ([id number]) OFFICE/OUTPATIENT VISIT EST Diagnosis: HYPERTENSION[ICD9: 401.9] Diagnosis: HYPERLIPIDEMIA NEC/NOS[ICD9: 272.4] Diagnosis: IMPAIRED FASTING GLUCOSE[ICD9: 790.21] Najma SAMSONNDER [facility] CPT-4: 56704 12/11/2011 ([id number]) OFFICE/OUTPATIENT VISIT EST Diagnosis: HYPERLIPIDEMIA NEC/NOS[ICD9: 272.4] Diagnosis: HYPERTENSION[ICD9: 401.9] Diagnosis: IMPAIRED FASTING GLUCOSE[ICD9: 790.21] Najma Grey ORENDER [facility] CPT-4: 35272 10/29/2011 ([id number]) OFFICE/OUTPATIENT VISIT EST Diagnosis: HYPERTENSION[ICD9: 401.9] Najma SAMSON NDER DO [facility] CPT-4: 57416 08/14/2011 ([id number]) OFFICE/OUTPATIENT VISIT EST Diagnosis: HYPERTENSION[ICD9: 401.9] Diagnosis: IMPAIRED FASTING GLUCOSE[ICD9: 790.21] Najma SAMSONNDER [facility] CPT-4: 12764 07/29/2011 ([id number]) OFFICE/OUTPATIENT VISIT EST Diagnosis: HYPERTENSION[ICD9: 401.9] Najma SAMSON NDER DO [facility] CPT-4: 97104 07/23/2011 ([id number]) OFFICE/OUTPATIENT VISIT EST Diagnosis: HYPERTENSION[ICD9: 401.9] Najma SAMSON NDER DO [facility] CPT-4: 29946 06/24/2011 OFFICE/OUTPATIENT VISIT EST Diagnosis: HYPERTENSION[ICD9: 401.9] Najma SAMSON NDER DO [facility] CPT-4: 91380 05/20/2011 OFFICE/OUTPATIENT VISIT EST Diagnosis: HYPERTENSION[ICD9: 401.9] Najma SAMSON NDER DO [facility] CPT-4: 68098 04/15/2011 OFFICE/OUTPATIENT VISIT EST Diagnosis: HYPERLIPIDEMIA NEC/NOS[ICD9: 272.4] Diagnosis: IMPAIRED FASTING GLUCOSE[ICD9: 790.21] Najma CHAPMAN SMatilde ORENDER DO [facility] CPT-4: 34920 03/18/2011 ([id number]) OFFICE/OUTPATIENT VISIT EST Najma Grey [facility] CPT-4: 89830 07/30/2010 ([id number]) PREV VISIT, EST, AGE 40-64 Najma ABBOTTDELTA LindquistMatilde OG DO [facility] CPT-4: 61305 04/24/2010 Plan of Care Planned Activity Notes [...] : E11.65 06/02/2019 Appointment: Najma Og WPtel: [address] [place] [address] US FOLLOW UP 06/02/2019 Appointment: Najma Og WPtel: [address] [place], [place] [phone] [place] LAB 05/24/2019 Visit Diagnosis Plan: Type 2 diabetes mellitus without complications Discussion: Lab discussed Accuchecks daily Continue current meds Check CMP and HbA1C in 3mos then fwup ICD-9 : 250.00 ICD-10 : E11.9 01/31/2019 Visit Diagnosis Plan: Mixed hyperlipidemia Discussion: Mediterranean diet Combination of cardio and weight bearing exercise ICD-9 : 272.2 ICD-10 : E78.2 01/31/2019 Visit Diagnosis Plan: Essential (primary) hypertension Discussion: Stable ICD-9 : 401.9 ICD-10 : I10 01/31/2019 Appointment: Najma Og WPtel: [address] [place] [address] US FOLLOW UP 01/31/2019 Appointment: Najma Og WPtel: [address] [place], [place] [phone] [place] LAB 01/26/2019 Appointment: Najma Og WPtel: [address] [place], [place] [phone] [place] LAB 09/30/2018 Visit Diagnosis Plan: Essential [...] : N19 08/19/2018 Appointment: Najma Og WPtel: [address] [place] [address] US FOLLOW UP 08/19/2018 Appointment: Najma Og WPtel: [address] [place], [place] [phone] [place] LAB 08/16/2018 Visit Diagnosis Plan: Type [...] : I10 05/10/2018 Appointment: Najma Og WPtel: [address] [place], [place] [phone] US FOLLOW UP 05/10/2018 Patient Education: Low Back Pain Exercises: Illustration Completed 05/10/2018 Patient Education: Low Back Pain Exercises Completed 05/10/2018 Appointment: Najma Og WPtel: [address] [place], [place] [phone] [place] LAB 05/05/2018 Visit Diagnosis Plan: Type [...] : E78.2 01/19/2018 Appointment: Najma Og WPtel: [address] [place], [place] [phone] FOLLOW UP 01/19/2018 Patient Education: Patient Medication Summary Completed 01/19/2018 Appointment: Najma Og WPtel: [address] [place], [place] [phone] [place] LAB 01/13/2018 Patient Education: Patient Medication [...] : E78.2 10/15/2017 Appointment: Najma Og WPtel: [address] [place], [place] [phone] [place] FOLLOW UP 10/15/2017 Patient Education: Patient Medication Summary Completed 10/15/2017 Appointment: Najma Og WPtel: [address] [place], [place] [phone] [place] LAB 10/06/2017 Patient Education: Patient Medication Summary Completed 10/06/2017 Visit Diagnosis Plan: Actinic keratosis Discussion: Cr yotherapy as above ICD-9 : 702.0 ICD-10 : L57.0 04/23/2017 Appointment: Najma Og WPtel: [address] [place], [place] [phone] OFFICE SURGERY 04/23/2017 Patient Education: Patient Medication [...] : E11.9 03/11/2017 Appointment: Najma Og WPtel: [address] [place], [place] [phone] FOLLOW UP 03/11/2017 Patient Education: Patient Medication Summary Completed 03/11/2017 Appointment: Najma Og WPtel: [address] [place], [place] [phone] LAB 03/05/2017 Patient Education: Patient Medication Summary [...] : E78.2 07/09/2016 Appointment: Najma Og WPtel: [address] [place], [place] [phone] [place] 07/08 lm ~sl 07/09 confirmed~sl FOLLOW UP 08/2016 Patient Education: Patient Medication Summary Completed 07/09/2016 Appointment: Najma Og WPtel: [address] [place], [place] [phone] [place] LAB 06/16/2016 Patient Education: Patient Medication Summary Completed 06/16/2016 Visit Plan: Lab discussed Pura lópez fátima Lifestyle change for 3mos then check CMP, HbA1C in 3mos Has had flu and pneumonia shot 03/10/2016 Appointment: Najma Og WPtel: [address] [place], [place] [phone] 03/06 confirmed `sl FOLLOW UP 03/10/2016 Patient Education: Patient Medication Summary Completed 03/10/2016 Appointment: Najma Og WPtel: [address] [place], [place] [phone] 03/06/2016 Patient Education: Patient Medication Summary Completed 03/06/2016 Referral: Donavon Keller WPtel: [address] [place] [address] [employer] [id number] [place] Referral Completed 10/22/2015 Visit Plan: Tick bite area looks much be tter Continue current rxs and close monitoring Follow up if any new symptoms or worsening appearance 09/12/2015 Appointment: Barbara Brower [address] 09/10 confirmed~sl FOLLOW UP 09/12/2015 Patient Education: Patient Medication Summary Completed 09/12/2015 Visit Plan: Cover as above 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 topical steroids to calm down the inflammation(suspect most of redness is due to histamine response vs infection) Monitor closely Follow up in 2 days to recheck 09/10/2015 Appointment: Barbaar Brower [address] ACUTE ILLNESS 09/10/2015 Patient Education: Patient Medication [...] shingles vaccine 09/06/2015 Appointment: Barbara Brower [address] [facility]66[facility] FOLLOW UP 09/06/2015 Patient Education: Patient Medication Summary Completed 09/06/2015 Care Plan: Referral Order SNOMED-CT : [id number] Pending 09/06/2015 Appointment: Najma Og WPtel: [address] [place], [place] [phone] [place] LAB 08/31/2015 Patient Education: Patient Medication [...] to UC/ER. 06/29/2015 Appointment: Henrietta Lubin WPtel: [address] [place], [place] [phone] ACUTE ILLNESS 06/29/2015 Patient Education: Patient Medication Summary Completed 06/29/2015 Visit Plan: Lab discussed Will keep meds the same Discussed diet/exercise at length Cryotherapy as above to AKs of arms Flu and Prevnar 13 given Trial of revatio per patient request for ED--warned of no nitrates Recheck 4mos 01/17/2015 Appointment: Najma Og WPtel: [address] [place], [place] [phone] 01/16 confirmed~sl FOLLOW UP 01/17/2015 Patient Education: Patient Medication Summary Completed 01/17/2015 Appointment: Najma Og WPtel: [address] [place], [place] [phone] US LAB 01/12/2015 Patient Education: Patient Medication Summary Completed 01/12/2015 Visit Plan: Lab discussed Start accuchec ks daily Cryotherapy as above 09/19/2014 Appointment: Najma Og WPtel: [address] [place], [place] [phone] 09/18 confirmed -mf FOLLOW UP 09/19/2014 Patient Education: Patient Medication Summary Completed 09/19/2014 Appointment: Najma Og WPtel: [address] [address] [place], [place] [phone] US LAB 08/15/2014 Patient Education: Patient Medication Summary Completed 08/15/2014 Appointment: Najma Og WPtel: [address] [place] [address] ACUTE ILLNESS 12/14/2013 Patient Education: Patient Medication Summary Completed 12/14/2013 Visit Plan: Patient using tylenol prn pa in Discussed possible shingles shot for booster in 9-12mos 10/17/2013 Appointment: Najma Og WPtel: [address] [place] [address] FOLLOW UP 10/17/2013 Patient Education: Patient Medication Summary Completed 10/17/2013 Appointment: Jeanie Briceño WPtel: [address] [place] [address] ACUTE ILLNESS 09/23/2013 Patient Education: Patient Medication Summary Completed 09/23/2013 Appointment: Najma Og WPtel: [address] [place] [address] BP CHECK 07/22/2013 Patient Education: Patient Medication Summary Completed 07/22/2013 Visit Plan: Lab discussed Discussed swit arun amlodopine to beta slim to see if helps with tremor BP check in 1mo 06/20/2013 Appointment: Najma Og WPtel: [address] [place] [address] 06/17 no answer FOLLOW UP 06/20/2013 Patient Education: Patient Medication Summary Completed 06/20/2013 Appointment: Najma Og WPtel: [address] [place], [place] [phone] US LAB 06/08/2013 Patient Education: Patient Medication Summary Completed 06/08/2013 Visit Plan: BRAT diet and yogurt and gat orade Lab discussed Continue current meds Spot checks on BS 11/25/2012 Appointment: Najma Og WPtel: [address] [place], [place] [phone] 11/24 FOLLOW UP 11/25/2012 Patient Education: Patient Medication Summary Completed 11/25/2012 Appointment: Najma Og WPtel: [address] [place], [place] [phone] LAB 11/11/2012 Patient Education: Patient Medication Summary Completed 11/11/2012 Appointment: Henrietta Lubin WPtel: [address] [place], [place] [phone] WORK IN 08/27/2012 Patient Education: Patient Medication Summary Completed 08/27/2012 Visit Plan: Pt going to get new home BP moniter Continue crestor and restart fish oil and will check fasting lab in 6mos Lab results discussed 05/11/2012 Appointment: Najma Og WPtel: [address] [place], [place] [id number] 05/10 FOLLOW UP 05/11/2012 Patient Education: Patient Medication Summary Completed 05/11/2012 Appointment: Najma Og WPtel: [address] [place], [place] [id number] LAB 05/04/2012 Patient Education: Patient Medication Summary Completed 05/04/2012 Visit Plan: 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 and forehead 03/02/2012 Appointment: Najma Og WPtel: [address] [place], [place] [id number] 03/01 OFFICE SURGERY 03/02/2012 Patient Education: Patient Medication Summary Completed 03/02/2012 Visit Plan: Labs discussed--recheck lab end of Feb/mar Continue current meds and continue to moniter BS daily and BP 1-2 times a week Plan on cryotherapy this fall so can wear longsleeves after procedure See urology 12/11/2011 Appointment: Najma Og WPtel: [address] [place], [place] [phone] [place] FOLLOW UP 12/11/2011 Patient Education: Patient Medication Summary Completed 12/11/2011 Appointment: Najma Og WPtel: [address] [place], [place] [phone] US LAB 10/29/2011 Patient Education: Patient Medication Summary Completed 10/29/2011 Appointment: Najma Og WPtel: [address] [place] [address] BP CHECK 08/14/2011 Patient Education: Patient Medication Summary Completed 08/14/2011 Appointment: Najma Og WPtel: [address] [place] [address] ACUTE ILLNESS 07/29/2011 Patient Education: Patient Medication Summary Completed 07/29/2011 Appointment: Najma Og WPtel: [address] [place] [address] BP CHECK 07/23/2011 Patient Education: Patient Medication Summary Completed 07/23/2011 Appointment: Najma Og WPtel: [address] [place] [address] BP CHECK 06/24/2011 Patient Education: Patient Medication Summary Completed 06/24/2011 Appointment: Najma Og WPtel: [address] [place] [address] BP CHECK 05/20/2011 Patient Education: Patient Medication Summary Completed 05/20/2011 Appointment: Najma Og WPtel: [address] [place] [address] BP CHECK 04/29/2011 Patient Education: Patient Medication Summary Completed 04/29/2011 Appointment: Najma Og WPtel: [address] [place] [address] BP CHECK 04/15/2011 Patient Education: Patient Medication Summary Completed 04/15/2011 Visit Plan: Continue current meds Add fi sh oil 1gm daily Glucometer given to use for accuchecks prn 03/18/2011 Appointment: Najma Og WPtel: [address] [place], [place] [phone] FOLLOW UP 03/18/2011 Patient Education: Patient Medication Summary Completed 03/18/2011 Appointment: Najma Og WPtel: [address] [place], [place] [phone] [place] LAB 03/14/2011 Patient Education: Patient Medication Summary Completed 03/14/2011 Appointment: Najma Og WPtel: [address] [place] [address] US LAB 11/11/2010 Appointment: Najma Og WPtel: [address] [place], [place] [id number] 11/11/2010 Patient Education: Patient Medication Summary Completed 11/11/2010 Appointment: Najma Og WPtel: [address] [place], [place] [phone] [place] LAB 10/29/2010 Patient Education: Patient Medication Summary Completed 10/29/2010 Appointment: Najma Og WPtel: [address] [place], [place] [phone] [place] FOLLOW UP 07/30/2010 Patient Education: Patient Medication Summary Completed 07/30/2010 Appointment: Namja Og WPtel: [address] [place], [place] [phone] [place] LAB 07/23/2010 Patient Education: Patient Medication Summary Completed 07/23/2010 Appointment: Najma Og WPtel: [address] [place], [place] [phone] [place] LAB 04/26/2010 Patient Education: Patient Medication Summary Completed 04/26/2010 Visit Plan: Add PSA to lab Restart Crest or at 10mg daily Trial of Wellbutrin to aid in smoking cessation Check Lipids and LFTs in 3mos 04/24/2010 Appointment: Najma Og [facility]Ptel[facility] [phone] [facility] [id number] [place] FOLLOW UP 04/24/2010 Patient Education: Patient Medication Summary Completed 04/24/2010 [facility]ment: [facility] [phone] [id number] [facility] 04/19/2010 Patient Education: Patient Medication Summary Completed 04/19/2010 Referral: Donavon Keller WPtel: [address] [id number] [place] Referral Completed Instructions Comment . Lab [...] conservative + labs. CBC & CMP at [facility] Discussed needed oral hydration (preferably with sports [...]
--- OUTSIDE RECORDS SUMMARY | 2019-10-14 22:46 | XMS REPORT | CCD ---
Author Author Inocente Og D.O. Organization 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 PP Unavailable CCM Unavailable Summary Purpose Interface Exchange Insurance Providers Payer name Policy type / Coverage type Covered green party ID Effective Begin Date Effective End Date [employer] MEDICARE Medicare Part B [id number] Unknown [facility] Medicare Part B [id number] Un known Family history Father Diagnosis Age At Onset Diabetes mellitus Type 2 Unknown Myocardial infarction Unknown Brother Diagnosis Age At Onset Diabetes mellitus Type 2 Unknown Mother Diagnosis Age At Onset Osteoarthritis Unknown Cerebrovascular disease Unknown Social History Social History Element Codes Description Effective Dates Tobacco history SNOMED CT: 075413924 Never smoker 12/21/2014 Marital status Unknown 07/30/2010 [...] ER 80 mg capsule,24 hr,extended release RxNorm: 451815 TAKE 1 CAPSULE BY MOUTH ONCE DAILY 06/10/2019 09/07/2019 Active Vitamin D3 25 mcg (1,000 unit) capsule RxNorm: 287671 1 Capsule(s) Oral two times a day 06/02/2019 No Stop Date Active turmeric 400 mg capsule RxNorm: 1 Capsule(s) Oral QD 06/02/2019 No Stop Date Active Fish Oil 120 mg-180 mg-500 mg capsule RxNorm: 2 Capsule(s) Ora l QD 06/02/2019 No Stop Date Active 16.2 mg-0.1037 mg-0.0194 mg tablet RxNorm: 5949229 1 Tablet(s) Oral four times a day as needed abdominal pain/diarrhea 06/02/2019 No Stop D ate Active fenofibrate micronized 134 mg capsule RxNorm: 466819 1 Capsule(s) Oral QD for triglycerides 04/14/2019 07/13/2019 Active amlodipine 5 mg tablet RxNorm: 882848 TAKE 1 TABLET BY MOUTH ON CE DAILY 03/22/2019 06/19/2019 Active metformin ER 500 mg tablet,extended release 24 hr RxNorm: 86 0975 TAKE 1 TABLET BY MOUTH ONCE DAILY 03/15/2019 No Stop Date Active propranolol ER 80 mg capsule,24 hr,extended release RxNorm: 128498 TAKE 1 CAPSULE BY MOUTH ONCE DAILY 03/15/2019 06/09/2019 Inactive amlodipine 5 mg tablet RxNorm: 217752 1 Tablet(s) PO QD 12/27/2018 Inactive fenofibrate micronized 134 mg capsule RxNorm: 465550 TA KE 1 CAPSULE BY MOUTH ONCE DAILY FOR TRIGLYCERIDES 10/11/2018 04/13/2019 Inactive amlodipine 5 mg tablet RxNorm: 347511 1 Tablet(s) PO QD 09/30/2018 Inactive metformin ER 500 mg tablet,extended release 24 hr RxNorm: 86 0975 TAKE 1 TABLET BY MOUTH ONCE DAILY 09/21/2018 03/14/2019 Inactive propranolol ER 80 mg capsule,24 hr,extended release RxNorm: 330998 TAKE 1 CAPSULE BY MOUTH ONCE DAILY 09/21/2018 03/14/2019 Inactive amlodipine 5 mg tablet RxNorm: 673521 1 Tablet(s) PO QD 08/25/2018 Inactive amlodipine 5 mg tablet RxNorm: 828187 1 Tablet(s) PO QD 08/25/2018 Inactive lisinopril 40 mg tablet RxNorm: 350126 TAKE 1 TABLET BY MOUTH O NCE DAILY 07/21/2018 08/24/2018 Inactive fenofibrate micronized 134 mg capsule RxNorm: 969856 TA KE 1 CAPSULE BY MOUTH ONCE DAILY FOR TRIGLYCERIDES 07/12/2018 10/10/2018 Inactive propranolol ER 80 mg capsule,24 hr,extended release RxNorm: 817844 TAKE 1 CAPSULE BY MOUTH ONCE DAILY 06/21/2018 09/20/2018 Inactive lisinopril 40 mg tablet RxNorm: 623819 TAKE 1 TABLET BY MOUTH O NCE DAILY 04/26/2018 07/20/2018 Inactive metformin ER 500 mg tablet,extended release 24 hr RxNorm: 633495 1 Tablet(s) QD 03/31/2018 09/20/2018 Inactive lisinopril 40 mg tablet RxNorm: 029325 TAKE 1 TABLET BY MOUTH O NCE DAILY 01/28/2018 04/25/2018 Inactive Vitamin D3 5,000 unit tablet RxNorm: 174700 1 Tablet(s) PO QD 01/1908/18/2018 Inactive fenofibrate micronized 134 mg capsule RxNorm: 976757 1 Capsule(s) PO QD for triglycerides 01/19/2018 07/11/2018 Inactive metformin ER 500 mg tablet,extended release 24 hr RxNorm: 983758 1 Tablet(s) QD 12/31/2017 03/30/2018 Inactive metformin ER 500 mg tablet,extended release 24 hr RxNorm: 865034 Tablet(s) 12/30/2017 12/30/2017 Inactive propranolol ER 80 mg capsule,24 hr,extended release RxNorm: 835231 1 Capsule(s) PO QD 12/17/2017 06/14/2018 Inactive metformin ER 500 mg tablet,extended release 24 hr RxNorm: 86 0975 1 Tablet(s) PO QD DUE FOR LABS AND APPT 12/02/2017 12/30/2017 Inactive Crestor 10 mg tablet RxNorm: 163165 TAKE ONE TABLET BY MOUTH ON CE DAILY 11/01/2017 01/18/2018 Inactive lisinopril 40 mg tablet RxNorm: 258932 TAKE ONE TABLET BY MOUTH ONCE DAILY [...] ER 80 mg capsule,24 hr,extended release RxNorm: 668381 1 Capsule(s) PO QD DUE FOR APPT 09/08/2017 12/17/2017 Inactive Crestor 10 mg tablet RxNorm: 746283 1 Tablet(s) PO QD T CHELSI ONE TABLET BY MOUTH DAILY 03/11/2017 09/06/2017 Inactive propranolol ER 80 mg capsule,24 hr,extended release RxNorm: 755612 1 Capsule(s) PO QD TAKE ONE CAPSULE BY MOUTH DAILY - REPLACES AMLODOPINE 03/11/2017 09/08/2017 Inactive metformin ER 500 mg tablet,extended release 24 hr RxNorm: 86 0975 1 Tablet(s) PO QD 03/11/2017 09/08/2017 Inactive lisinopril 40 mg tablet RxNorm: 177491 1 Tablet(s) PO QD 03/11/2017 0 09/06/2017 Inactive lisinopril 40 mg tablet RxNorm: 181590 1 Tablet(s) PO QD 02/16/2017 1 05/11/2016 Inactive metformin ER 500 mg tablet,extended release 24 hr RxNorm: 86 0975 1 Tablet(s) PO QD Due for labs and follow up before further refills 02/16/2017 017 Inactive propranolol ER 80 mg capsule,24 hr,extended release RxNorm: 309350 Capsule(s) TAKE ONE CAPSULE BY MOUTH DAILY - REPLACES AMLODOPINE 11/19/20162016 Inactive lisinopril 40 mg tablet RxNorm: 377719 1 Tablet(s) PO QD 11/17/2016 1 04/18/2016 Inactive metformin ER 500 mg tablet,extended release 24 hr RxNorm: 86 0975 1 Tablet(s) PO QD 11/17/2016 02/16/2017 Inactive lisinopril 40 mg tablet RxNorm: 930113 1 Tablet(s) PO Q D TAKE ONE TABLET BY MOUTH DAILY 08/19/2016 11/17/2016 Inactive metformin ER 500 mg tablet,extended release 24 hr RxNorm: 86 0975 Tablet(s) TAKE ONE TABLET BY MOUTH DAILY 08/19/2016 11/16/2016 Inactive propranolol ER 80 mg capsule,24 hr,extended release RxNorm: 112532 Capsule(s) TAKE ONE CAPSULE BY MOUTH DAILY - REPLACES AMLODOPINE 08/19/20162016 Inactive Crestor 10 mg tablet RxNorm: 279499 TAKE ONE TABLET BY MOUTH DAILY 06/16/2016 03/10/2017 Inactive lisinopril 40 mg tablet RxNorm: 832147 1 Tablet(s) PO Q D TAKE ONE TABLET BY MOUTH DAILY 05/23/2016 08/18/2016 Inactive metformin ER 500 mg tablet,extended release 24 hr RxNorm: 86 0975 TAKE ONE TABLET BY MOUTH DAILY 05/23/2016 08/19/2016 Inactive propranolol ER 80 mg capsule,24 hr,extended release RxNorm: 963512 TAKE ONE CAPSULE BY MOUTH DAILY - REPLACES AMLODOPINE 05/23/2016 08/19/2016 Yvonne ctive Crestor 10 mg tablet RxNorm: 383130 TAKE ONE TABLET BY MOUTH DAILY 03/31/2016 06/15/2016 Inactive metformin ER 500 mg tablet,extended release 24 hr RxNorm: 86 0975 TAKE ONE TABLET BY MOUTH DAILY 02/19/2016 05/22/2016 Inactive propranolol ER 80 mg capsule,24 hr,extended release RxNorm: 222184 TAKE ONE CAPSULE BY MOUTH DAILY - REPLACES AMLODOPINE 11/23/2015 05/20/2016 Yvonne ctive metformin ER 500 mg tablet,extended release 24 hr RxNorm: 86 0975 TAKE ONE TABLET BY MOUTH DAILY 11/08/2015 02/05/2016 Inactive Bactroban Nasal 2 % ointment RxNorm: 806461 Apply topic ally to affected area twice daily 09/10/2015 03/09/2016 Inactive Vibramycin 100 mg capsule RxNorm: 056822 1 Capsule(s) PO BID 201509/23/2015 Inactive lisinopril 40 mg tablet RxNorm: 787789 1 Tablet(s) PO Q D TAKE ONE TABLET BY MOUTH DAILY 08/27/2015 02/22/2016 Inactive metformin ER 500 mg tablet,extended release 24 hr RxNorm: 86 0975 TAKE ONE TABLET BY MOUTH DAILY 08/06/2015 11/03/2015 Inactive Levsin/SL 0.125 mg sublingual tablet RxNorm: 9736827 1 T ablet(s) SL Q4H as needed for stomach cramps 06/29/2015 07/03/2015 Inactive lisinopril 40 mg tablet RxNorm: 111673 Tablet(s) TAKE ONE TABLE T BY MOUTH DAILY 06/07/2015 08/26/2015 Inactive propranolol ER 80 mg capsule,24 hr,extended release RxNorm: 598918 TAKE ONE CAPSULE BY MOUTH DAILY - REPLACES AMLODOPINE 05/30/2015 11/22/2015 Yvonne ctive metformin ER 500 mg tablet,extended release 24 hr RxNorm: 86 0975 1 Tablet(s) PO QD 05/10/2015 08/05/2015 Inactive Crestor 10 mg tablet RxNorm: 069432 TAKE ONE TABLET BY MOUTH DAILY 04/18/2015 10/14/2015 Inactive metformin ER 500 mg tablet,extended release 24 hr RxNorm: 86 0975 TAKE ONE TABLET BY MOUTH DAILY 02/07/2015 05/10/2015 Inactive sildenafil 20 mg tablet RxNorm: 694507 1 Tablet(s) PO QD 01/17/2015 1 04/17/2014 Inactive propranolol ER 80 mg capsule,24 hr,extended release RxNorm: 533340 1 Capsule(s) PO QD replaces amlodopine 11/28/2014 05/26/2015 Inactive [[facility] -- BIN:[id number], PCN: [id number], Group: [id number], ID# [id number], Process claim through PreViser, for questions: . THIS IS NOT INSURANCE.] lisinopril 40 mg tablet RxNorm: 129255 TAKE ONE TABLET BY MOUTH DAILY 11/16/2014 06/07/2015 Inactive lisinopril 40 mg tablet RxNorm: 034018 1 Tablet(s) PO QD 08/21/2014 0 11/15/2014 Inactive [AttnRPh: Saving apply/adjudicate RxGRP: [id number] RxBIN:[id number] RxN: ID#:[id number]] lisinopril 40 mg tablet RxNorm: 593869 1 Tablet(s) PO Q D NEEDS SEEN FOR APPOINTMENT 07/14/2014 08/21/2014 Inactive [AttnRPh: Saving apply/adjudicate RxGRP:SG20 RxBIN:[id number] RxPCN: ID#:[id number]] Crestor 10 mg tablet RxNorm: 194976 TAKE ONE TABLET BY MOUTH 07/06/2014 01/01/2015 Inactive metformin ER 500 mg tablet,extended release 24 hr RxNorm: 86 0975 1 Tablet(s) QD TAKE ONE TABLET BY MOUTH ONCE A DAY 06/09/2014 12/05/2014 Inactive propranolol ER 80 mg capsule,24 hr,extended release RxNorm: 469688 1 Capsule(s) PO QD replaces amlodopine 06/05/2014 11/28/2014 Inactive [[facility]INSUR[facility] PATI[facility] -- BIN:[id number], PCN: [id number], Group: [id number], ID# [id number], Process claim through PreViser, for questions: . THIS IS NOT INSURANCE.] propranolol ER 80 mg capsule,24 hr,extended release RxNorm: 812828 1 Capsule(s) PO QD replaces amlodopine 03/07/2014 06/05/2014 Inactive [[facility]UR[facility] -- BIN:[id number], PCN: [id number], Group: [id number], ID# [id number], Process claim through [employer], for questions: . THIS IS NOT INSURANCE.] metformin ER 500 mg tablet,extended release 24 hr RxNorm: 86 0975 TAKE ONE TABLET BY MOUTH ONCE A DAY 12/15/2013 06/09/2014 Inactive propranolol ER 80 mg capsule,24 hr,extended release RxNorm: 504330 1 Capsule(s) PO QD replaces amlodopine 12/09/2013 03/07/2014 Inactive [[facility] -- BIN:388317, PCN: [id number], Group: [id number], ID# [id number], Process claim through PreViser, for questions: . THIS IS NOT INSURANCE.] acyclovir 800 mg tablet RxNorm: 368024 1 Tablet(s) PO QID 09/23/2013 09/29/2013 Inactive gabapentin 300 mg capsule RxNorm: 290785 1 Capsule(s) PO BID 201310/07/2013 Inactive metformin ER 500 mg tablet,extended release 24 hr RxNorm: 86 0975 1 Tablet(s) PO QD 09/19/2013 12/14/2013 Inactive propranolol ER 80 mg capsule,24 hr,extended release RxNorm: 457466 1 Capsule(s) PO QD replaces amlodopine 09/15/2013 12/09/2013 Inactive metformin ER 500 mg 24 hr tablet,extended release RxNorm: 86 0975 1 Tablet(s) PO QD 09/15/2013 09/18/2013 Inactive lisinopril 40 mg tablet RxNorm: 280589 1 Tablet(s) PO QD 07/19/2013 0 07/14/2014 Inactive Crestor 10 mg tablet RxNorm: 162783 Tablet(s) PO TAKE O NE TABLET BY MOUTH EVERY DAY 07/12/2013 07/05/2014 Inactive propranolol ER 80 mg capsule,24 hr,extended release RxNorm: 902150 1 Capsule(s) PO QD replaces amlodopine 06/20/2013 09/15/2013 Inactive triamcinolone acetonide 0.1 % topical ointment RxNorm: 98713 36 Application TOP BID 06/20/2013 06/26/2013 Inactive Crestor 10 mg tablet RxNorm: 923497 1 Tablet(s) PO QD 04/18/201310/2013 Inactive Viagra 100 mg tablet RxNorm: 798489 1 Tablet(s) PO as directed 01/0508/18/2018 Inactive TAKE ONE TABLET BY MOUTH DIRECTED Crestor 10 mg tablet RxNorm: 329242 1 Tablet(s) PO QD 01/17/201304/06 Inactive metformin ER 500 mg tablet,extended release 24 hr RxNorm: 86 0975 1 Tablet(s) PO QD TAKE ONE TABLET BY MOUTH EVERY DAY 12/23/2012 09/15/2013 Inactive triamcinolone acetonide 0.1 % topical ointment RxNorm: 76792 36 Application TOP BID 08/27/2012 09/02/2012 Inactive ketoconazole 2 % topical cream RxNorm: 663021 1 Application TOP QAM 08/27/2012 09/02/2012 Inactive lisinopril 40 mg tablet RxNorm: 943664 1 Tablet(s) PO QD 07/21/2012 0 07/15/2013 Inactive Crestor 10 mg tablet RxNorm: 578174 1 Tablet(s) PO QD 07/21/201210/04 Inactive amlodipine 10 mg tablet RxNorm: 345522 1 Tablet(s) PO QHS 07/21/2012 07/15/2013 Inactive metformin ER 500 mg tablet,extended release 24 hr RxNorm: 86 0977 Tablet(s) PO TAKE ONE TABLET BY MOUTH EVERY DAY 03/31/2012 12/22/2012 Inactive lisinopril 40 mg tablet RxNorm: 687018 1 Tablet(s) PO QD 07/29/2011 0 07/20/2012 Inactive amlodipine 10 mg tablet RxNorm: 418781 1 Tablet(s) PO QHS 07/29/2011 07/20/2012 Inactive amlodipine 10 mg Tab RxNorm: 599297 1 Tablet(s) PO QHS 07/29/2011 Inactive Viagra 100 mg tablet RxNorm: 125966 1 Tablet(s) PO as directed 07/0601/24/2013 Inactive TAKE ONE TABLET BY MOUTH DIRECTED Crestor 10 mg tablet RxNorm: 288013 1 Tablet(s) PO QD 07/29/201107/05 Inactive Norvasc 5 mg Tab RxNorm: 196321 1 Tablet(s) PO QD 07/16/2011 07/28/19 12 Inactive Norvasc 5 mg Tab RxNorm: 407702 1 Tablet(s) PO QD 06/26/2011 07/15/19 12 Inactive lisinopril 40 mg Tab RxNorm: 565382 1 Tablet(s) PO QD 05/13/201107/06 Inactive metformin ER 500 mg tablet,extended release 24 hr RxNorm: 86 0977 1 Tablet(s) PO QD 03/18/2011 07/28/2011 Inactive Crestor 10 mg Tab RxNorm: 379942 1 Tablet(s) PO QHS 01/27/20112011 Inactive metformin ER 500 mg 24 hr Tab RxNorm: 415014 1 Tablet(s) PO QD 11/0403/17/2011 Inactive Viagra 100 mg Tab RxNorm: 863160 Tablet(s) PO TAKE ON E TABLET BY MOUTH DIRECTED 08/26/2010 07/28/2011 Inactive metformin ER 500 mg 24 hr Tab RxNorm: 665521 1 Tablet(s) PO QD 07/0611/18/2010 Inactive Crestor 10 mg Tab RxNorm: 612348 1 Tablet(s) PO QHS 07/30/20102010 Inactive Crestor 10 mg Tab RxNorm: 623545 1 Tablet(s) PO QHS 05/20/20102010 Inactive Wellbutrin SR 150 mg Tab RxNorm: 937719 1 Tablet(s) PO QAM 04/24/19 11 07/22/2010 Inactive Multivitamin And Mineral tablet RxNorm: 1 Tablet(s) PO QD No Start Date Active FreeStyle Lite Strips RxNorm: 1 Unit Dose Miscel laneous AC & HS check blood sugar AC and HS No Start Date Active Co Q-10 200 mg capsule RxNorm: 567430 1 Capsule(s) PO QD No Start Date Active lancets RxNorm: 1 Milliliter(s) Miscellaneous AC & HS No Start Robert e Active Vitamin D3 4,000 unit capsule RxNorm: 5413950 1 Capsule(s) PO QD No Start Date 07/08/2016 Inactive Fish Oil 360 mg-1,200 mg capsule RxNorm: 196872 2 Capsule(s) PO QD No Start Date 01/30/2019 Inactive hydrocodone 5 mg-acetaminophen 325 mg tablet RxNorm: 342257 1 Tablet(s) PO Q4H as needed for severe pain No Start Date 12/30/2015 Inactive Xanax 0.25 mg tablet RxNorm: 248936 1/2 Tablet(s) PO PRN for se andrea stress No Start Date 07/08/2016 Inactive lisinopril 40 mg Tab RxNorm: 657271 1 Tablet(s) PO QD No Start Date 0 05/12/2011 Inactive Fish Oil 1,000 mg capsule RxNorm: 1 Capsule(s) PO QD No Start Date 09/18/2014 Inactive naproxen 500 mg Tab RxNorm: 104158 1 Tablet(s) PO BID No Start Date 0 07/28/2011 Inactive aspirin 81 mg tablet RxNorm: 415590 1 Tablet(s) PO QD No Start Date 0 05/09/2018 Inactive Crestor 10 mg Tab RxNorm: 683751 1 Tablet(s) PO QD No Start Date 07/06 Inactive Crestor 5 mg tablet RxNorm: 347455 1 Tablet(s) PO QD No Start Date Inactive Fish Oil Oral RxNorm: Oral No Start Date 09/18/2014 Inactive Viagra 100 mg Tab RxNorm: 245238 1 Tablet(s) PO as directed No Star [...] Date S ervice Location GLYCOSYLATED HEMOGLOBIN TEST 49275 Hgb A1c 08086-3 6.7 % 0 05/24/2019 Unknown COMPREHENSIVE METABOLIC 20346 AST 21 U/L 2019 Unknown COMPREHENSIVE METABOLIC 79444 ALT 26 U/L 2019 Unknown COMPREHENSIVE METABOLIC 30734 BUN 14 mg/dL 2019 Unknown COMPREHENSIVE METABOLIC 08087 ALBUMIN 4.4 g/dL 2019 Unknown COMPREHENSIVE METABOLIC 61629 CHLORIDE 102 mmol/L 05/24 Unknown COMPREHENSIVE METABOLIC 74033 Bili Total 0.4 mg/dL 05/24 Unknown COMPREHENSIVE METABOLIC 40008 ALK PHOS 55 U/L 2019 Unknown COMPREHENSIVE METABOLIC 05922 SODIUM 139 mmol/L 05/24 Unknown COMPREHENSIVE METABOLIC 78615 CREATININE 1.28 mg/dL 05/07 Unknown COMPREHENSIVE METABOLIC 08015 CALCIUM 9.7 mg/dL 2019 Unknown COMPREHENSIVE METABOLIC 60006 POTASSIUM 4.7 mmol/L 05/24 Unknown COMPREHENSIVE METABOLIC 75958 Total Protein 6.8 g/dL Unknown COMPREHENSIVE METABOLIC 89599 Glucose 130 mg/dL 2019 Unknown COMPREHENSIVE METABOLIC 14063 Bicarbonate 29 mmol/L 05/07 Unknown COMPREHENSIVE METABOLIC 00108 AGAP 8 mmol/L 2019 Unknown MEAN GLUC 0436223 Calc Mean Gluc 146 mg/dL 05/24/2019 Unkn own GFR CALC [id number] GFR Non Afr Amr 56 mL/min 05/24/2019 Unk nown GFR CALC [id number] GFR Afr Amr >60 mL/min 05/24/2019 Unknow n MEAN GLUC 9135403 Calc Mean Gluc 140 mg/dL 01/26/2019 Unkn own GLYCOSYLATED HEMOGLOBIN TEST 29014 Hgb A1c 05275-5 6.5 % 1 Unknown COMPREHENSIVE METABOLIC 32158 AST 17 U/L 2018 Unknown COMPREHENSIVE METABOLIC 09647 ALT 19 U/L 2018 Unknown COMPREHENSIVE METABOLIC 10300 BUN 19 mg/dL 2018 Unknown COMPREHENSIVE METABOLIC 22611 ALBUMIN 4.3 g/dL 2018 Unknown COMPREHENSIVE METABOLIC 76900 CHLORIDE 103 mmol/L 01/26 Unknown COMPREHENSIVE METABOLIC 33981 Bili Total 0.6 mg/dL 01/26 Unknown COMPREHENSIVE METABOLIC 78154 ALK PHOS 60 U/L 2018 Unknown COMPREHENSIVE METABOLIC 10508 SODIUM 140 mmol/L 01/26 Unknown COMPREHENSIVE METABOLIC 57647 CREATININE 1.21 mg/dL 01/05 Unknown COMPREHENSIVE METABOLIC 33673 CALCIUM 9.6 mg/dL 2018 Unknown COMPREHENSIVE METABOLIC 66399 POTASSIUM 4.5 mmol/L 01/26 Unknown COMPREHENSIVE METABOLIC 43124 Total Protein 6.7 g/dL Unknown COMPREHENSIVE METABOLIC 00868 Glucose 111 mg/dL 2018 Unknown COMPREHENSIVE METABOLIC 32874 Bicarbonate 28 mmol/L 01/05 Unknown COMPREHENSIVE METABOLIC 16766 AGAP 9 mmol/L 2018 Unknown COMPLETE BLOOD COUNT 5519551 WBC 10.7 10e9/L 019 Unknown COMPLETE BLOOD COUNT [id number] RBC 4.38 10e12/L 2018 Unknown COMPLETE BLOOD COUNT 2772253 HEMOGLOBIN 13.7 g/dL 01/27/20 19 Unknown COMPLETE BLOOD COUNT 2978454 HEMATOCRIT 42.0 % 01/27/20 19 Unknown COMPLETE BLOOD COUNT 5758346 MCV 95.9 fL 9 Unknown COMPLETE BLOOD COUNT 4907143 MCH 31.3 pg 9 Unknown COMPLETE BLOOD COUNT 7203578 MCHC 32.6 g/dL 9 Unknown COMPLETE BLOOD COUNT 0804473 PLATELET COUNT 232 10e9/L Unknown COMPLETE BLOOD COUNT 9783052 Mean Plt Volume 11.4 fL Unknown COMPLETE BLOOD COUNT 0563980 Neut Auto 68.7 % 9 Unknown COMPLETE BLOOD COUNT 4793285 Lymph Auto 21.2 % 01/27/20 19 Unknown COMPLETE BLOOD COUNT 1293959 Mccone Auto 8.1 % 9 Unknown COMPLETE BLOOD COUNT 2170854 Eos Auto 1.8 % 9 Unknown COMPLETE BLOOD COUNT 1180556 RDW 14.1 % 9 Unknown COMPLETE BLOOD COUNT 6240552 Baso Auto 0.2 % 9 Unknown COMPLETE BLOOD COUNT [id number] Neutrophil Abs 7.35 10e9/L Unknown COMPLETE BLOOD COUNT 3342894 Lymphocyte Abs 2.27 10e9/L Unknown COMPLETE BLOOD COUNT [id number] Monocyte Abs 0.87 10e9/L 01/05 Unknown COMPLETE BLOOD COUNT 4365702 Eosinophil Abs 0.19 10e9/L Unknown COMPLETE BLOOD COUNT 5676851 RDW-SD 47.7 fL 9 Unknown COMPLETE BLOOD COUNT [id number] Basophil Abs 0.02 10e9/L 01/05 Unknown GFR CALC 3311743 GFR Non Afr Amr 59 mL/min 01/26/2019 Unk nown GFR CALC 9891976 GFR Afr Amr >60 mL/min 01/26/2019 Unknow n LIPID GROUP 26170 Cholesterol 215 mg/dL 01/26/2019 Unkno wn LIPID GROUP 52879 Triglyceride 221 mg/dL 01/26/2019 Unkn own LIPID GROUP 12184 HDL CHOLESTEROL 41 mg/dL 01/26/2019 U nknown LIPID GROUP 99803 Chol/HDL Ratio 5.24 ratio 01/26/2019 U nknown LIPID GROUP 33142 NON-HDL Chol 174 mg/dL 01/26/2019 Unkn own LIPID GROUP 29671 LDL Cholesterol 130 mg/dL 01/26/2019 [place] [address] Glucose 104 mg/dL 09/30 [place] [address] CREATININE 1.18 mg/dL [place] [address] BUN 19 mg/dL 09/30 [place] [address] SODIUM 139 mmol/L 09/05 [place] [address] POTASSIUM 4.1 mmol/L 09/05 [place] [address] CHLORIDE 105 mmol/L 09/05 [place] [address] Bicarbonate 26 mmol/L [place] [address] AGAP 8 mmol/L 09/30 [place] [address] CALCIUM 9.3 mg/dL 09/30 Unknown GFR CALC 8779255 GFR Afr Amr >60 mL/min 09/30/2018 Unknow n GFR CALC 1136050 GFR Non Afr Amr >60 mL/min 09/30/2018 Un known MICROALBUMIN URINE RANDOM 19539 U Microalbumin <2.0 mg/L 08/19/2018 Unknown MICROALBUMIN URINE RANDOM 88913 U Creatinine 66 mg/dL 0 08/19/2018 Unknown MICROALBUMIN URINE RANDOM 95046 ALB/CR Ratio <3.0 mg/gCR 08/19/2018 Unknown COMPREHENSIVE METABOLIC 53600 AST 21 U/L 2018 Unknown COMPREHENSIVE METABOLIC 95235 ALT 20 U/L 2018 Unknown COMPREHENSIVE METABOLIC 55565 BUN 31 mg/dL 2018 Unknown COMPREHENSIVE METABOLIC 83421 ALBUMIN 4.4 g/dL 2018 Unknown COMPREHENSIVE METABOLIC 56596 CHLORIDE 105 mmol/L 08/16 Unknown COMPREHENSIVE METABOLIC 79377 Bili Total 0.5 mg/dL 08/16 Unknown COMPREHENSIVE METABOLIC 81023 ALK PHOS 40 U/L 2018 Unknown COMPREHENSIVE METABOLIC 26838 SODIUM 140 mmol/L 08/16 Unknown COMPREHENSIVE METABOLIC 23067 CREATININE 1.45 mg/dL 08/04 Unknown COMPREHENSIVE METABOLIC 24767 CALCIUM 9.8 mg/dL 2018 Unknown COMPREHENSIVE METABOLIC 58964 POTASSIUM 5.1 mmol/L 08/16 Unknown COMPREHENSIVE METABOLIC 99491 Total Protein 6.9 g/dL Unknown COMPREHENSIVE METABOLIC 83445 Glucose 110 mg/dL 2018 Unknown COMPREHENSIVE METABOLIC 81757 Bicarbonate 25 mmol/L 08/04 Unknown COMPREHENSIVE METABOLIC 92135 AGAP 10 mmol/L 2018 Unknown GFR CALC 0961598 GFR Non Afr Amr 48 mL/min 08/16/2018 Unk nown GFR CALC 6761324 GFR Afr Amr 58 mL/min 08/16/2018 Unknown GLYCOSYLATED HEMOGLOBIN TEST 48080 Hgb A1c 08637-3 5.9 % 0 08/16/2018 Unknown LIPID GROUP 45283 Cholesterol 226 mg/dL 08/16/2018 Unkno wn LIPID GROUP 29618 Triglyceride 335 mg/dL 08/16/2018 Unkn own LIPID GROUP 96080 HDL CHOLESTEROL 32 mg/dL 08/16/2018 U nknown LIPID GROUP 41977 Chol/HDL Ratio 7.06 ratio 08/16/2018 U nknown LIPID GROUP 42386 NON-HDL Chol 194 mg/dL 08/16/2018 Unkn own LIPID GROUP 86993 LDL Cholesterol 127 mg/dL 08/16/2018 U nknown THYROID STIMULATING HORMONE 98952 TSH 2.475 uIU/mL 08/16/2018 Unknown COMPLETE BLOOD COUNT 2601769 WBC 7.5 10e9/L 08/17/19 19 Unknown COMPLETE BLOOD COUNT 2426084 RBC 4.09 10e12/L 2018 Unknown COMPLETE BLOOD COUNT 8368814 HEMOGLOBIN 12.9 g/dL 08/17/19 19 Unknown COMPLETE BLOOD COUNT 6997087 HEMATOCRIT 40.0 % 08/17/19 19 Unknown COMPLETE BLOOD COUNT 8263240 MCV 97.8 fL 9 Unknown COMPLETE BLOOD COUNT 9175755 MCH 31.5 pg 9 Unknown COMPLETE BLOOD COUNT 2053160 MCHC 32.3 g/dL 9 Unknown COMPLETE BLOOD COUNT 5990550 PLATELET COUNT 258 10e9/L Unknown COMPLETE BLOOD COUNT 2195849 Mean Plt Volume 11.4 fL Unknown COMPLETE BLOOD COUNT 8581263 Neut Auto 62.9 % 9 Unknown COMPLETE BLOOD COUNT 0567822 Lymph Auto 27.3 % 08/17/19 19 Unknown COMPLETE BLOOD COUNT 3216609 Mccone Auto 8.2 % 9 Unknown COMPLETE BLOOD COUNT 5137794 RDW 13.3 % 9 Unknown COMPLETE BLOOD COUNT 1006203 Eos Auto 1.5 % 9 Unknown COMPLETE BLOOD COUNT 6385762 Baso Auto 0.1 % 9 Unknown COMPLETE BLOOD COUNT 0230536 Neutrophil Abs 4.72 10e9/L Unknown COMPLETE BLOOD COUNT 0260069 Lymphocyte Abs 2.05 10e9/L Unknown COMPLETE BLOOD COUNT 6205162 Monocyte Abs 0.62 10e9/L 08/04 Unknown COMPLETE BLOOD COUNT 6520014 Eosinophil Abs 0.11 10e9/L Unknown COMPLETE BLOOD COUNT 5104281 RDW-SD 46.7 fL 9 Unknown COMPLETE BLOOD COUNT 9942338 Basophil Abs 0.01 10e9/L 08/04 Unknown MEAN GLUC 0145340 Calc Mean Gluc 123 mg/dL 08/16/2018 Unkn own LIPID GROUP 42066 Cholesterol 212 mg/dL 05/05/2018 Unkno wn LIP[facility] GROUP 20345 Triglyceride 271 mg/dL 05/05/2018 Unkn own [facility] 20607 HDL CHOLESTEROL 38 mg/dL 05/05/2018 U nknown LIPID GROUP 97082 Chol/HDL Ratio 5.58 ratio 05/05/2018 U nknown LIPID GROUP 32471 NON-HDL Chol 174 mg/dL 05/05/2018 Unkn own LIP[facility] GROUP 81242 LDL Cholesterol 120 mg/dL 05/05/2018 U nknown GFR CALC [id number] GFR Non Afr Amr 49 mL/min 05/05/2018 Unk nown GFR CALC [id number] GFR Afr Amr 59 mL/min 05/05/2018 Unknown GLYCOSYLATED HEMOGLOBIN TEST 30678 Hgb A1c 32592-8 6.0 % 0 05/05/2018 Unknown MEAN GLUC [id number] Calc Mean Gluc 126 mg/dL 05/05/2018 Unkn own COMPREHENSIVE METABOLIC 03811 AST 18 U/L 2018 Unknown COMPREHENSIVE METABOLIC 86024 ALT 23 U/L 2018 Unknown COMPREHENSIVE METABOLIC 90971 BUN 30 mg/dL 2018 Unknown COMPREHENSIVE METABOLIC 74511 ALBUMIN 4.3 g/dL 2018 Unknown COMPREHENSIVE METABOLIC 90663 CHLORIDE 106 mmol/L 05/05 Unknown COMPREHENSIVE METABOLIC 64370 Bili Total 0.4 mg/dL 05/05 Unknown COMPREHENSIVE METABOLIC 53961 ALK PHOS 39 U/L 2018 Unknown COMPREHENSIVE METABOLIC 14241 SODIUM 139 mmol/L 05/05 Unknown COMPREHENSIVE METABOLIC 72493 CREATININE 1.44 mg/dL 04/08 Unknown COMPREHENSIVE METABOLIC 11288 CALCIUM 9.6 mg/dL 2018 Unknown COMPREHENSIVE METABOLIC 03965 POTASSIUM 4.7 mmol/L 05/05 Unknown COMPREHENSIVE METABOLIC 27206 Total Protein 6.6 g/dL Unknown COMPREHENSIVE METABOLIC 19725 Glucose 112 mg/dL 2018 Unknown COMPREHENSIVE METABOLIC 07905 Bicarbonate 28 mmol/L 04/08 Unknown COMPREHENSIVE METABOLIC 13321 AGAP 5 mmol/L 2018 Unknown THYROID STIMULATING HORMONE 09926 TSH 3.725 uIU/mL 05/05/2018 Unknown COMPLETE BLOOD COUNT 6125167 WBC 8.2 10e9/L 05/05/19 19 Unknown COMPLETE BLOOD COUNT [id number] RBC 4.02 10e12/L 2018 Unknown COMPLETE BLOOD COUNT 1743178 HEMOGLOBIN 12.7 g/dL 05/05/19 19 Unknown COMPLETE BLOOD COUNT [id number] HEMATOCRIT 39.3 % 05/05/19 19 Unknown COMPLETE BLOOD COUNT 8300609 MCV 97.8 fL 9 Unknown COMPLETE BLOOD COUNT 8087514 MCH 31.6 pg 9 Unknown COMPLETE BLOOD COUNT 1505551 MCHC 32.3 g/dL 9 Unknown COMPLETE BLOOD COUNT 6101391 PLATELET COUNT 213 10e9/L Unknown COMPLETE BLOOD COUNT 1806234 Mean Plt Volume 11.7 fL Unknown COMPLETE BLOOD COUNT 2022376 Neut Auto 55.7 % 9 Unknown COMPLETE BLOOD COUNT [id number] Lymph Auto 33.2 % 05/05/19 19 Unknown COMPLETE BLOOD COUNT 1067874 Mccone Auto 8.5 % 9 Unknown COMPLETE BLOOD COUNT 0516622 Eos Auto 2.4 % 9 Unknown COMPLETE BLOOD COUNT 2320992 RDW 13.9 % 9 Unknown COMPLETE BLOOD COUNT 2653519 Baso Auto 0.2 % 9 Unknown COMPLETE BLOOD COUNT 0900713 Neutrophil Abs 4.57 10e9/L Unknown COMPLETE BLOOD COUNT [id number] Lymphocyte Abs 2.72 10e9/L Unknown COMPLETE BLOOD COUNT 1173873 Monocyte Abs 0.70 10e9/L 04/08 Unknown COMPLETE BLOOD COUNT [id number] Eosinophil Abs 0.20 10e9/L Unknown COMPLETE BLOOD COUNT 2446215 RDW-SD 48.8 fL 9 Unknown COMPLETE BLOOD COUNT [id number] Basophil Abs 0.02 10e9/L 04/08 Unknown MICROALBUMIN URINE RANDOM 51247 U Microalbumin 19.3 mg/L 01/19/2018 Unknown MICROALBUMIN URINE RANDOM 22014 U Creatinine 96 mg/dL 1 Unknown MICROALBUMIN URINE RANDOM 94805 ALB/CR Ratio 20.1 mg/gCR 01/19/2018 Unknown LIPID GROUP 90203 Cholesterol 173 mg/dL 01/13/2018 Unkno wn LIPID GROUP 56979 Triglyceride 386 mg/dL 01/13/2018 Unkn own LIPID GROUP 58942 HDL CHOLESTEROL 37 mg/dL 01/13/2018 U nknown LIPID GROUP 33984 Chol/HDL Ratio 4.68 ratio 01/13/2018 U nknown LIPID GROUP 22483 NON-HDL Chol 136 mg/dL 01/13/2018 Unkn own LIPID GROUP 29098 LDL Cholesterol 59 mg/dL 01/13/2018 U nknown COMPLETE BLOOD COUNT 4354548 WBC TNP:Client Request 01/13/2018 Unknown COMPLETE BLOOD COUNT 4698905 RBC TNP:Client Request 01/13/2018 Unknown COMPLETE BLOOD COUNT [id number] HEMOGLOBIN TNP:Client Request 01/13/2018 Unknown COMPLETE BLOOD COUNT 7774014 HEMATOCRIT TNP:Client Request 01/13/2018 Unknown COMPLETE BLOOD COUNT 7970604 MCV TNP:Client Request 01/13/2018 Unknown COMPLETE BLOOD COUNT 4095480 MCH TNP:Client Request 01/13/2018 Unknown COMPLETE BLOOD COUNT 7731365 MCHC TNP:Client Request 01/13/2018 Unknown COMPLETE BLOOD COUNT 0606378 PLATELET COUNT TNP:Client Req uest 01/13/2018 Unknown COMPLETE BLOOD COUNT 4978994 Mean Plt Volume TNP:Client Re quest 01/13/2018 Unknown COMPLETE BLOOD COUNT [id number] Neut Auto TNP:Client Request 01/13/2018 Unknown COMPLETE BLOOD COUNT [id number] Lymph Auto TNP:Client Request 01/13/2018 Unknown COMPLETE BLOOD COUNT [id number] Mccone Auto TNP:Client Request 01/13/2018 Unknown COMPLETE BLOOD COUNT [id number] Eos Auto TNP:Client Request 01/13/2018 Unknown COMPLETE BLOOD COUNT [id number] RDW TNP:Client Request 01/13/2018 Unknown COMPLETE BLOOD COUNT [id number] Baso Auto TNP:Client Request 01/13/2018 Unknown COMPLETE BLOOD COUNT [id number] Neutrophil Abs TNP:Client Req uest 01/13/2018 Unknown COMPLETE BLOOD COUNT [id number] Lymphocyte Abs TNP:Client Req uest 01/13/2018 Unknown COMPLETE BLOOD COUNT [id number] Monocyte Abs TNP:Client Reque st 01/13/2018 Unknown COMPLETE BLOOD COUNT [id number] Eosinophil Abs TNP:Client Req uest 01/13/2018 Unknown COMPLETE BLOOD COUNT [id number] RDW-SD TNP:Client Request 01/13/2018 Unknown COMPLETE BLOOD COUNT [id number] Basophil Abs TNP:Client Reque st 01/13/2018 Unknown GLYCOSYLATED HEMOGLOBIN TEST 81838 Hgb A1c 52528-3 6.2 % 1 Unknown THYROID STIMULATING HORMONE 10007 TSH 2.764 uIU/mL 01/13/2018 Unknown COMPREHENSIVE METABOLIC 30196 AST 19 U/L 2017 Unknown COMPREHENSIVE METABOLIC 89106 ALT 21 U/L 2017 Unknown COMPREHENSIVE METABOLIC 93073 BUN 16 mg/dL 2017 Unknown COMPREHENSIVE METABOLIC 25850 ALBUMIN 4.2 g/dL 2017 Unknown COMPREHENSIVE METABOLIC 60311 CHLORIDE 105 mmol/L 01/13 Unknown COMPREHENSIVE METABOLIC 44681 Bili Total 0.5 mg/dL 01/13 Unknown COMPREHENSIVE METABOLIC 61660 ALK PHOS 85 U/L 2017 Unknown COMPREHENSIVE METABOLIC 83286 SODIUM 139 mmol/L 01/13 Unknown COMPREHENSIVE METABOLIC 84113 CREATININE 1.07 mg/dL 01/04 Unknown COMPREHENSIVE METABOLIC 45518 CALCIUM 9.2 mg/dL 2017 Unknown COMPREHENSIVE METABOLIC 68582 POTASSIUM 4.4 mmol/L 01/13 Unknown COMPREHENSIVE METABOLIC 52679 Total Protein 7.7 g/dL Unknown COMPREHENSIVE METABOLIC 69840 Glucose 130 mg/dL 2017 Unknown COMPREHENSIVE METABOLIC 78353 Bicarbonate 27 mmol/L 01/04 Unknown COMPREHENSIVE METABOLIC 83269 AGAP 7 mmol/L 2017 Unknown PSA EQUIMOLAR JERSON 72505 PSA Total 1.16 ng/mL 8 Unknown MEAN GLUC 0203271 Calc Mean Gluc 131 mg/dL 01/13/2018 Unkn own GFR CALC 4693557 GFR Non Afr Amr >60 mL/min 01/13/2018 Un known GFR CALC 4992389 GFR Afr Amr >60 mL/min 01/13/2018 Unknow n MEAN GLUC 2241681 Calc Mean Gluc 134 mg/dL 10/06/2017 Unkn own GFR CALC 2362864 GFR Non Afr Amr >60 mL/min 10/06/2017 Un known GFR CALC 9940445 GFR Afr Amr >60 mL/min 10/06/2017 Unknow n GLYCOSYLATED HEMOGLOBIN TEST 62918 Hgb A1c 72663-9 6.3 % 0 10/06/2017 Unknown VITAMIN B 12 21283 VITAMIN B12 1202 pg/mL 10/06/2017 Unk nown COMPLETE BLOOD COUNT 7494177 WBC 7.4 10e9/L 10/07/19 18 Unknown COMPLETE BLOOD COUNT [id number] RBC 4.24 10e12/L 2017 Unknown COMPLETE BLOOD COUNT 0040597 HEMOGLOBIN 13.5 g/dL 10/07/19 18 Unknown COMPLETE BLOOD COUNT 8034441 HEMATOCRIT 41.6 % 10/07/19 18 Unknown COMPLETE BLOOD COUNT 9696318 MCV 98.1 fL 8 Unknown COMPLETE BLOOD COUNT 8021961 MCH 31.8 pg 8 Unknown COMPLETE BLOOD COUNT 9328732 MCHC 32.5 g/dL 8 Unknown COMPLETE BLOOD COUNT 8899051 PLATELET COUNT 223 10e9/L 06/2017 Unknown COMPLETE BLOOD COUNT 9168944 Mean Plt Volume 11.9 fL 06/2017 Unknown COMPLETE BLOOD COUNT 3202863 Neut Auto 58.0 % 8 Unknown COMPLETE BLOOD COUNT 7258205 Lymph Auto 29.7 % 10/07/19 18 Unknown COMPLETE BLOOD COUNT 1428579 Mccone Auto 8.3 % 8 Unknown COMPLETE BLOOD COUNT 8934627 RDW 14.0 % 8 Unknown COMPLETE BLOOD COUNT 6624341 Eos Auto 3.7 % 8 Unknown COMPLETE BLOOD COUNT 9140988 Baso Auto 0.3 % 8 Unknown COMPLETE BLOOD COUNT 4143597 Neutrophil Abs 4.29 10e9/L Unknown COMPLETE BLOOD COUNT 3139610 Lymphocyte Abs 2.20 10e9/L Unknown COMPLETE BLOOD COUNT 7085786 Monocyte Abs 0.61 10e9/L 06/2017 Unknown COMPLETE BLOOD COUNT 3187810 Eosinophil Abs 0.27 10e9/L Unknown COMPLETE BLOOD COUNT 8309446 Basophil Abs 0.02 10e9/L 06/2017 Unknown COMPLETE BLOOD COUNT 9539734 RDW-SD 48.6 fL 8 Unknown LIPID GROUP 72573 Cholesterol 216 mg/dL 10/06/2017 Unkno wn LIPID GROUP 47540 Triglyceride 335 mg/dL 10/06/2017 Unkn own LIPID GROUP 15246 HDL CHOLESTEROL 33 mg/dL 10/06/2017 U nknown LIPID GROUP 51537 Chol/HDL Ratio 6.55 ratio 10/06/2017 U nknown LIPID GROUP 34393 NON-HDL Chol 183 mg/dL 10/06/2017 Unkn own LIPID GROUP 22745 LDL Cholesterol 116 mg/dL 10/06/2017 U nknown COMPREHENSIVE METABOLIC 21026 AST 15 U/L 2017 Unknown COMPREHENSIVE METABOLIC 30445 ALT 15 U/L 2017 Unknown COMPREHENSIVE METABOLIC 07224 BUN 21 mg/dL 2017 Unknown COMPREHENSIVE METABOLIC 71384 ALBUMIN 4.1 g/dL 2017 Unknown COMPREHENSIVE METABOLIC 38775 CHLORIDE 107 mmol/L 10/06 Unknown COMPREHENSIVE METABOLIC 34041 Bili Total 0.6 mg/dL 10/06 Unknown COMPREHENSIVE METABOLIC 01970 ALK PHOS 68 U/L 2017 Unknown COMPREHENSIVE METABOLIC 70024 SODIUM 140 mmol/L 10/06 Unknown COMPREHENSIVE METABOLIC 53195 CREATININE 1.12 mg/dL 06/2017 Unknown COMPREHENSIVE METABOLIC 52560 CALCIUM 9.7 mg/dL 2017 Unknown COMPREHENSIVE METABOLIC 85673 POTASSIUM 4.6 mmol/L 10/06 Unknown COMPREHENSIVE METABOLIC 20472 Total Protein 6.6 g/dL Unknown COMPREHENSIVE METABOLIC 84005 Glucose 114 mg/dL 2017 Unknown COMPREHENSIVE METABOLIC 33701 Bicarbonate 26 mmol/L 06/2017 Unknown COMPREHENSIVE METABOLIC 80587 AGAP 7 mmol/L 2017 Unknown GLYCOSYLATED HEMOGLOBIN TEST 81328 Hgb A1c 00499-0 6.1 % 1 05/05/2016 Unknown GFR CALC 4688017 GFR Non Afr Amr >60 mL/min 03/05/2017 Un known GFR CALC 9143654 GFR Afr Amr >60 mL/min 03/05/2017 Unknow n MEAN GLUC 5140986 Calc Mean Gluc 128 mg/dL 03/05/2017 Unkn own COMPREHENSIVE METABOLIC 68031 AST 18 U/L 2016 Unknown COMPREHENSIVE METABOLIC 04961 ALT 20 U/L 2016 Unknown COMPREHENSIVE METABOLIC 29214 BUN 15 mg/dL 2016 Unknown COMPREHENSIVE METABOLIC 86774 ALBUMIN 4.3 g/dL 2016 Unknown COMPREHENSIVE METABOLIC 15766 CHLORIDE 105 mmol/L 03/05 Unknown COMPREHENSIVE METABOLIC 02678 Bili Total 0.5 mg/dL 03/05 Unknown COMPREHENSIVE METABOLIC 00957 ALK PHOS 57 U/L 2016 Unknown COMPREHENSIVE METABOLIC 77558 SODIUM 141 mmol/L 03/05 Unknown COMPREHENSIVE METABOLIC 89003 CREATININE 1.07 mg/dL 02/06 Unknown COMPREHENSIVE METABOLIC 13080 CALCIUM 9.3 mg/dL 2016 Unknown COMPREHENSIVE METABOLIC 80482 POTASSIUM 4.8 mmol/L 03/05 Unknown COMPREHENSIVE METABOLIC 77825 Total Protein 6.2 g/dL Unknown COMPREHENSIVE METABOLIC 89045 Glucose 118 mg/dL 2016 Unknown COMPREHENSIVE METABOLIC 17272 Bicarbonate 29 mmol/L 02/06 Unknown COMPREHENSIVE METABOLIC 16614 AGAP 7 mmol/L 2016 Unknown FREE T4 94108 T4 Free 1.38 ng/dL 03/05/2017 Unknown COMPLETE BLOOD COUNT 8583680 WBC 8.4 10e9/L 03/05/20 17 Unknown COMPLETE BLOOD COUNT 9284274 RBC 4.11 10e12/L 2016 Unknown COMPLETE BLOOD COUNT 7432605 HEMOGLOBIN 12.8 g/dL 03/05/20 17 Unknown COMPLETE BLOOD COUNT 4283397 HEMATOCRIT 40.1 % 03/05/20 17 Unknown COMPLETE BLOOD COUNT 3788366 MCV 97.6 fL 7 Unknown COMPLETE BLOOD COUNT 1129390 MCH 31.1 pg 7 Unknown COMPLETE BLOOD COUNT 5190832 MCHC 31.9 g/dL 7 Unknown COMPLETE BLOOD COUNT 8521336 PLATELET COUNT 184 10e9/L Unknown COMPLETE BLOOD COUNT 6086128 Mean Plt Volume 11.3 fL Unknown COMPLETE BLOOD COUNT 3668916 Neut Auto 62.5 % 7 Unknown COMPLETE BLOOD COUNT 2701303 Lymph Auto 26.4 % 03/05/20 17 Unknown COMPLETE BLOOD COUNT 5756344 Mccone Auto 7.9 % 7 Unknown COMPLETE BLOOD COUNT 7969523 RDW 13.5 % 7 Unknown COMPLETE BLOOD COUNT 0916526 Eos Auto 3.0 % 7 Unknown COMPLETE BLOOD COUNT 8839779 Baso Auto 0.2 % 7 Unknown COMPLETE BLOOD COUNT 6230851 Neutrophil Abs 5.25 10e9/L Unknown COMPLETE BLOOD COUNT 3003900 Lymphocyte Abs 2.22 10e9/L Unknown COMPLETE BLOOD COUNT [id number] Monocyte Abs 0.66 10e9/L 02/06 Unknown COMPLETE BLOOD COUNT 7236226 Eosinophil Abs 0.25 10e9/L Unknown COMPLETE BLOOD COUNT 4184616 Basophil Abs 0.02 10e9/L 02/06 Unknown COMPLETE BLOOD COUNT 5158776 RDW-SD 46.7 fL 7 Unknown THYROID STIMULATING HORMONE 16453 TSH 2.330 uIU/mL 03/05/2017 Unknown LIPID GROUP 06570 Cholesterol 135 mg/dL 03/05/2017 Unkno wn LIPID GROUP 09664 Triglyceride 297 mg/dL 03/05/2017 Unkn own LIPID GROUP 95197 HDL CHOLESTEROL 34 mg/dL 03/05/2017 U nknown LIPID GROUP 33067 Chol/HDL Ratio 3.97 ratio 03/05/2017 U nknown LIPID GROUP 47266 NON-HDL Chol 101 mg/dL 03/05/2017 Unkn own LIPID GROUP 52762 LDL Cholesterol 42 mg/dL 03/05/2017 U nknown GLYCOSYLATED HEMOGLOBIN TEST 02032 Hgb A1c 51214-4 6.5 % 1 05/07/2015 Unknown GFR CALC 6525087 GFR Non Afr Amr 55 mL/min 03/06/2016 Unk nown GFR CALC 3315190 GFR Afr Amr >60 mL/min 03/06/2016 Unknow n COMPLETE BLOOD COUNT 9530243 WBC 8.5 10e9/L 03/06/20 16 Unknown COMPLETE BLOOD COUNT 3318444 RBC 4.32 10e12/L 2015 Unknown COMPLETE BLOOD COUNT 3237408 HEMOGLOBIN 13.5 g/dL 03/06/20 16 Unknown COMPLETE BLOOD COUNT 3630893 HEMATOCRIT 41.3 % 03/06/20 16 Unknown COMPLETE BLOOD COUNT 0552662 MCV 95.6 fL 6 Unknown COMPLETE BLOOD COUNT 2783242 MCH 31.3 pg 6 Unknown COMPLETE BLOOD COUNT 8708429 MCHC 32.7 g/dL 6 Unknown COMPLETE BLOOD COUNT 4195048 PLATELET COUNT 191 10e9/L 04/2015 Unknown COMPLETE BLOOD COUNT 9086488 Mean Plt Volume 11.7 fL 04/2015 Unknown COMPLETE BLOOD COUNT 4548576 Neut Auto 64.2 % 6 Unknown COMPLETE BLOOD COUNT 7644191 Lymph Auto 25.9 % 03/06/20 16 Unknown COMPLETE BLOOD COUNT 7087496 Mccone Auto 7.8 % 6 Unknown COMPLETE BLOOD COUNT 8144233 RDW 13.4 % 6 Unknown COMPLETE BLOOD COUNT 2766397 Eos Auto 2.0 % 6 Unknown COMPLETE BLOOD COUNT 4003968 Baso Auto 0.1 % 6 Unknown COMPLETE BLOOD COUNT 8290634 Neutrophil Abs 5.46 10e9/L Unknown COMPLETE BLOOD COUNT 3302050 Lymphocyte Abs 2.20 10e9/L Unknown COMPLETE BLOOD COUNT 8243970 Monocyte Abs 0.66 10e9/L 04/2015 Unknown COMPLETE BLOOD COUNT 9802077 Eosinophil Abs 0.17 10e9/L Unknown COMPLETE BLOOD COUNT [id number] Basophil Abs 0.01 10e9/L 04/2015 Unknown COMPLETE BLOOD COUNT 8999669 RDW-SD 45.0 fL 6 Unknown FREE T4 73657 T4 Free 1.34 ng/dL 03/06/2016 Unknown MEAN GLUC 1209013 Calc Mean Gluc 140 mg/dL 03/06/2016 Unkn own COMPREHENSIVE METABOLIC 21585 AST 15 U/L 2015 Unknown COMPREHENSIVE METABOLIC 05150 ALT 18 U/L 2015 Unknown COMPREHENSIVE METABOLIC 10317 BUN 21 mg/dL 2015 Unknown COMPREHENSIVE METABOLIC 61141 ALBUMIN 4.3 g/dL 2015 Unknown COMPREHENSIVE METABOLIC 69354 CHLORIDE 103 mmol/L 03/06 Unknown COMPREHENSIVE METABOLIC 61882 Bili Total 0.4 mg/dL 03/06 Unknown COMPREHENSIVE METABOLIC 98647 ALK PHOS 68 U/L 2015 Unknown COMPREHENSIVE METABOLIC 39771 SODIUM 140 mmol/L 03/06 Unknown COMPREHENSIVE METABOLIC 81557 CREATININE 1.31 mg/dL 04/2015 Unknown COMPREHENSIVE METABOLIC 51379 CALCIUM 9.4 mg/dL 2015 Unknown COMPREHENSIVE METABOLIC 80502 POTASSIUM 4.8 mmol/L 03/06 Unknown COMPREHENSIVE METABOLIC 27099 Total Protein 6.6 g/dL Unknown COMPREHENSIVE METABOLIC 25399 Glucose 142 mg/dL 2015 Unknown COMPREHENSIVE METABOLIC 83365 Bicarbonate 29 mmol/L 04/2015 Unknown COMPREHENSIVE METABOLIC 11025 AGAP 8 mmol/L 2015 Unknown THYROID STIMULATING HORMONE 35430 TSH 2.288 uIU/mL 03/06/2016 Unknown LIPID GROUP 59599 Cholesterol 154 mg/dL 03/06/2016 Unkno wn LIPID GROUP 07560 Triglyceride 266 mg/dL 03/06/2016 Unkn own LIPID GROUP 56112 HDL CHOLESTEROL 38 mg/dL 03/06/2016 U nknown LIPID GROUP 89401 Chol/HDL Ratio 4.05 ratio 03/06/2016 U nknown LIPID GROUP 66260 NON-HDL Chol 116 mg/dL 03/06/2016 Unkn own LIPID GROUP 43620 LDL Cholesterol 63 mg/dL 03/06/2016 U nknown MEAN GLUC 1158076 Mean Glucose 128 mg/dL 08/31/2015 Unknow n COMPLETE BLOOD COUNT 1502026 WBC 8.4 10e9/L 08/31/19 16 Unknown COMPLETE BLOOD COUNT 2303234 RBC 4.12 10e12/L 2015 Unknown COMPLETE BLOOD COUNT 3718680 HEMOGLOBIN 12.8 g/dL 08/31/19 16 Unknown COMPLETE BLOOD COUNT 2082531 HEMATOCRIT 39.6 % 08/31/19 16 Unknown COMPLETE BLOOD COUNT 1465478 MCV 96.1 fL 6 Unknown COMPLETE BLOOD COUNT 5506970 MCH 31.1 pg 6 Unknown COMPLETE BLOOD COUNT 6619368 MCHC 32.3 g/dL 6 Unknown COMPLETE BLOOD COUNT 4362907 PLATELET COUNT 184 10e9/L Unknown COMPLETE BLOOD COUNT 5651015 Mean Plt Volume 12.0 fL Unknown COMPLETE BLOOD COUNT 1754882 Neut Auto 59.8 % 6 Unknown COMPLETE BLOOD COUNT 5792952 Lymph Auto 27.9 % 08/31/19 16 Unknown COMPLETE BLOOD COUNT 8844179 Mccone Auto 9.1 % 6 Unknown COMPLETE BLOOD COUNT 6167176 RDW 13.6 % 6 Unknown COMPLETE BLOOD COUNT 0442620 Eos Auto 3.1 % 6 Unknown COMPLETE BLOOD COUNT 2441509 Baso Auto 0.1 % 6 Unknown COMPLETE BLOOD COUNT 0044864 Neutrophil Abs 5.02 10e9/L Unknown COMPLETE BLOOD COUNT 3053038 Lymphoctye Abs 2.34 10e9/L Unknown COMPLETE BLOOD COUNT 7060627 Monocyte Abs 0.76 10e9/L 08/05 Unknown COMPLETE BLOOD COUNT 4592041 Eosinophil Abs 0.26 10e9/L Unknown COMPLETE BLOOD COUNT 4690333 Basophil Abs 0.01 10e9/L 08/05 Unknown COMPLETE BLOOD COUNT 8098975 RDW-SD 46.3 fL 6 Unknown GLYCOSYLATED HEMOGLOBIN TEST 04448 Hgb A1c 85970-0 6.1 % 0 08/31/2015 Unknown GFR CALC 4831950 GFR Afr Amr >60 mL/min 08/31/2015 Unknow n GFR CALC 5608313 GFR Non Afr Amr >60 mL/min 08/31/2015 Un known FREE T4 18350 T4 Free 1.21 ng/dL 08/31/2015 Unknown THYROID STIMULATING HORMONE 02749 TSH 2.988 uIU/mL 08/31/2015 Unknown COMPREHENSIVE METABOLIC 37456 AST 16 U/L 2015 Unknown COMPREHENSIVE METABOLIC 50019 ALT 19 U/L 2015 Unknown COMPREHENSIVE METABOLIC 10410 BUN 17 mg/dL 2015 Unknown COMPREHENSIVE METABOLIC 87316 ALBUMIN 4.3 g/dL 2015 Unknown COMPREHENSIVE METABOLIC 81053 CHLORIDE 107 mmol/L 08/30 Unknown COMPREHENSIVE METABOLIC 56710 Bili Total 0.4 mg/dL 08/30 Unknown COMPREHENSIVE METABOLIC 22748 ALK PHOS 66 U/L 2015 Unknown COMPREHENSIVE METABOLIC 21406 SODIUM 140 mmol/L 08/30 Unknown COMPREHENSIVE METABOLIC 71896 CREATININE 1.07 mg/dL 08/05 Unknown COMPREHENSIVE METABOLIC 03273 CALCIUM 9.5 mg/dL 2015 Unknown COMPREHENSIVE METABOLIC 89130 POTASSIUM 4.5 mmol/L 08/30 Unknown COMPREHENSIVE METABOLIC 66234 Total Protein 6.7 g/dL Unknown COMPREHENSIVE METABOLIC 75286 Glucose 122 mg/dL 2015 Unknown COMPREHENSIVE METABOLIC 71161 Bicarbonate 26 mmol/L 08/05 Unknown COMPREHENSIVE METABOLIC 37125 AGAP 7 mmol/L 2015 Unknown LIPID GROUP 29339 Cholesterol 171 mg/dL 08/31/2015 Unkno wn LIPID GROUP 43816 Triglyceride 428 mg/dL 08/31/2015 Unkn own LIPID GROUP 56600 HDL CHOLESTEROL 35 mg/dL 08/31/2015 U nknown LIPID GROUP 50043 Chol/HDL Ratio 4.89 ratio 08/31/2015 U nknown LIPID GROUP 24980 NON-HDL Chol 136 mg/dL 08/31/2015 Unkn own LIPID GROUP 54438 LDL Cholesterol 50 mg/dL 08/31/2015 U nknown PSA EQUIMOLAR JERSON 01510 PSA Total 0.47 ng/mL 6 Unknown GFR CALC 6079998 GFR AA >60 ML/MIN 01/12/2015 Unknown GFR CALC 4293053 GFR NON-AA >60 ML/MIN 01/12/2015 Unknown COMPREHENSIVE METABOLIC 72868 AST 18 U/L 2014 Unknown COMPREHENSIVE METABOLIC 61285 ALT 19 IU/L 2014 Unknown COMPREHENSIVE METABOLIC 11169 BUN 19 MG/DL 2014 Unknown COMPREHENSIVE METABOLIC 21411 ALBUMIN 4.7 GM/DL 2014 Unknown COMPREHENSIVE METABOLIC 00649 CHLORIDE 104 MMOL/L 01/12 Unknown COMPREHENSIVE METABOLIC 22952 BILI TOT 0.8 MG/DL 2014 Unknown COMPREHENSIVE METABOLIC 08253 ALK PHOS 58 U/L 2014 Unknown COMPREHENSIVE METABOLIC 42496 SODIUM 139 MMOL/L 01/12 Unknown COMPREHENSIVE METABOLIC 92978 CREATININE 1.09 MG/DL 12/2014 Unknown COMPREHENSIVE METABOLIC 96155 CALCIUM 9.6 MG/DL 2014 Unknown COMPREHENSIVE METABOLIC 51110 POTASSIUM 4.4 MMOL/L 01/12 Unknown COMPREHENSIVE METABOLIC 86866 PROT TOT 6.7 GM/DL 2014 Unknown COMPREHENSIVE METABOLIC 54329 Glucose 109 MG/DL 2014 Unknown COMPREHENSIVE METABOLIC 77260 BICARB 27 MMOL/L 2014 Unknown COMPREHENSIVE METABOLIC 14068 ANION GAP 8 MEQ/L 2014 Unknown LIPID GROUP 58544 HDL TEST 36 MG/DL 01/12/2015 Unknown LIPID GROUP 85759 TRIG 220 MG/DL 01/12/2015 Unknown LIPID GROUP 32943 TEST LDL 58 MG/DL 01/12/2015 Unknown LIPID GROUP 36567 CHOL 138 MG/DL 01/12/2015 Unknown LIPID GROUP 78130 RCHOL/HDL 3.83 RATIO 01/12/2015 Unknow n LIPID GROUP 36674 NON-HDL CH 102 MG/DL 01/12/2015 Unknow n GLYCOSYLATED HEMOGLOBIN TEST 45077 A1C HPLC 41101-2 6.1 % 1 Unknown COMPLETE BLOOD COUNT 7949254 WBC 7.1 10e9/L 01/13/20 15 Unknown COMPLETE BLOOD COUNT 5912281 RBC 4.38 10e12/L 2014 Unknown COMPLETE BLOOD COUNT 8553447 HGB 13.7 g/dL 5 Unknown COMPLETE BLOOD COUNT 9005700 HCT DET 41.3 % 5 Unknown COMPLETE BLOOD COUNT 2823131 MCV 94.3 fL 5 Unknown COMPLETE BLOOD COUNT 3550440 MCH 31.3 pg 5 Unknown COMPLETE BLOOD COUNT 2406822 MCHC 33.2 g/dL 5 Unknown COMPLETE BLOOD COUNT 7824735 PLT 174 10e9/L 01/13/20 15 Unknown COMPLETE BLOOD COUNT 7374878 MPV 11.8 fL 5 Unknown COMPLETE BLOOD COUNT 9171260 SAMIR % 61.3 % 5 Unknown COMPLETE BLOOD COUNT 3409315 LY % 28.3 % 5 Unknown COMPLETE BLOOD COUNT 7250661 MON % 7.6 % 5 Unknown COMPLETE BLOOD COUNT 9740072 EOS % 2.7 % 5 Unknown COMPLETE BLOOD COUNT 9977979 BASO % 0.1 % 5 Unknown COMPLETE BLOOD COUNT 5256991 RDW 13.1 % 5 Unknown COMPLETE BLOOD COUNT 4433586 ABS SAMIR 4.35 10e9/L 015 Unknown COMPLETE BLOOD COUNT 6076711 ABS LYMPH 2.01 10e9/L 015 Unknown COMPLETE BLOOD COUNT 5904485 ABS MONO 0.54 10e9/L 015 Unknown COMPLETE BLOOD COUNT 5804806 ABS EOS 0.19 10e9/L 015 Unknown COMPLETE BLOOD COUNT 1924548 ABS BASO 0.01 10e9/L 015 Unknown COMPLETE BLOOD COUNT 5184012 RDW-SD 43.9 fL 5 Unknown GLYCOSYLATED HEMOGLOBIN TEST 35310 A1C HPLC 74986-9 6.1 % 0 08/15/2014 Unknown COMPLETE BLOOD COUNT 3443155 WBC 9.7 10e9/L 08/16/19 15 Unknown COMPLETE BLOOD COUNT 6934586 RBC 4.29 10e12/L 2014 Unknown COMPLETE BLOOD COUNT 6303583 HGB 13.3 g/dL 5 Unknown COMPLETE BLOOD COUNT 9357301 HCT DET 40.5 % 5 Unknown COMPLETE BLOOD COUNT 7908644 MCV 94.4 fL 5 Unknown COMPLETE BLOOD COUNT 3991073 MCH 31.0 pg 5 Unknown COMPLETE BLOOD COUNT 0288146 MCHC 32.8 g/dL 5 Unknown COMPLETE BLOOD COUNT 6820647 PLT 227 10e9/L 08/16/19 15 Unknown COMPLETE BLOOD COUNT 4197887 MPV 11.0 fL 5 Unknown COMPLETE BLOOD COUNT 3797426 SAMIR % 66.4 % 5 Unknown COMPLETE BLOOD COUNT 2237972 LY % 23.7 % 5 Unknown COMPLETE BLOOD COUNT 4701152 MON % 8.1 % 5 Unknown COMPLETE BLOOD COUNT 1050631 EOS % 1.6 % 5 Unknown COMPLETE BLOOD COUNT 2315243 BASO % 0.2 % 5 Unknown COMPLETE BLOOD COUNT 7960396 RDW 13.4 % 5 Unknown COMPLETE BLOOD COUNT 0290198 ABS SAMIR 6.44 10e9/L 015 Unknown COMPLETE BLOOD COUNT 1360948 ABS LYMPH 2.30 10e9/L 015 Unknown COMPLETE BLOOD COUNT 0496122 ABS MONO 0.79 10e9/L 015 Unknown COMPLETE BLOOD COUNT 5682415 ABS EOS 0.16 10e9/L 015 Unknown COMPLETE BLOOD COUNT 0588510 ABS BASO 0.02 10e9/L 015 Unknown COMPLETE BLOOD COUNT 2232582 RDW-SD 44.7 fL 5 Unknown COMPREHENSIVE METABOLIC 37148 AST 17 U/L 2014 Unknown COMPREHENSIVE METABOLIC 49274 ALT 23 IU/L 2014 Unknown COMPREHENSIVE METABOLIC 93551 BUN 16 MG/DL 2014 Unknown COMPREHENSIVE METABOLIC 53144 ALBUMIN 4.3 GM/DL 2014 Unknown COMPREHENSIVE METABOLIC 39547 CHLORIDE 107 MMOL/L 08/15 Unknown COMPREHENSIVE METABOLIC 62917 BILI TOT 0.4 MG/DL 2014 Unknown COMPREHENSIVE METABOLIC 80003 ALK PHOS 91 U/L 2014 Unknown COMPREHENSIVE METABOLIC 18975 SODIUM 139 MMOL/L 08/15 Unknown COMPREHENSIVE METABOLIC 27455 CREATININE 1.07 MG/DL 08/04 Unknown COMPREHENSIVE METABOLIC 67568 CALCIUM 9.6 MG/DL 2014 Unknown COMPREHENSIVE METABOLIC 02123 POTASSIUM 4.6 MMOL/L 08/15 Unknown COMPREHENSIVE METABOLIC 08898 PROT TOT 6.7 GM/DL 2014 Unknown COMPREHENSIVE METABOLIC 22840 Glucose 111 MG/DL 2014 Unknown COMPREHENSIVE METABOLIC 33106 BICARB 27 MMOL/L 2014 Unknown COMPREHENSIVE METABOLIC 94165 ANION GAP 5 MEQ/L 2014 Unknown GFR CALC 6182010 GFR AA >60 ML/MIN 08/15/2014 Unknown GFR CALC [id number] GFR NON-AA >60 ML/MIN 08/15/2014 Unknown THYROID STIMULATING HORMONE 48085 TSH 1.598 uIU/ML 08/15/2014 Unknown LIPID GROUP 67776 HDL TEST 33 MG/DL 08/15/2014 Unknown LIPID GROUP 86984 TRIG 187 MG/DL 08/15/2014 Unknown LIPID GROUP 30157 TEST LDL 58 MG/DL 08/15/2014 Unknown LIPID GROUP 72354 CHOL 128 MG/DL 08/15/2014 Unknown LIPID GROUP 29514 RCHOL/HDL 3.88 RATIO 08/15/2014 Unknow n LIPID GROUP 19549 NON-HDL CH 95 MG/DL 08/15/2014 Unknow n PSA EQUIMOLAR JERSON 06225 PSA EQ 0.70 NG/ML 5 Unknown FREE T4 19668 FREE T4 1.32 NG/DL 08/15/2014 Unknown GFR CALC [id number] GFR AA >60 ML/MIN 12/14/2013 Unknown GFR CALC 7089304 GFR NON-AA 58.0L ML/MIN 12/14/2013 Unkno wn COMPLETE BLOOD COUNT 5993134 WBC 8.7 10e9/L 12/15/19 14 Unknown COMPLETE BLOOD COUNT 8995059 RBC 4.32 10e12/L 2013 Unknown COMPLETE BLOOD COUNT 1515336 HGB 13.5 g/dL 4 Unknown COMPLETE BLOOD COUNT 1430852 HCT DET 40.6 % 4 Unknown COMPLETE BLOOD COUNT 8342913 MCV 94.0 fL 4 Unknown COMPLETE BLOOD COUNT 3880863 MCH 31.3 pg 4 Unknown COMPLETE BLOOD COUNT 9145309 MCHC 33.3 g/dL 4 Unknown COMPLETE BLOOD COUNT 3915259 PLT 205 10e9/L 12/15/19 14 Unknown COMPLETE BLOOD COUNT 6446978 MPV 11.7 fL 4 Unknown COMPLETE BLOOD COUNT 7904460 SAMIR % 62.5 % 4 Unknown COMPLETE BLOOD COUNT 3638949 LY % 26.9 % 4 Unknown COMPLETE BLOOD COUNT 8643246 MON % 8.8 % 4 Unknown COMPLETE BLOOD COUNT 2578486 EOS % 1.7 % 4 Unknown COMPLETE BLOOD COUNT 3961404 BASO % 0.1 % 4 Unknown COMPLETE BLOOD COUNT 3814929 RDW 13.4 % 4 Unknown COMPLETE BLOOD COUNT 7168595 ABS SAMIR 5.44 10e9/L 014 Unknown COMPLETE BLOOD COUNT 4709543 ABS LYMPH 2.34 10e9/L 014 Unknown COMPLETE BLOOD COUNT [id number] ABS MONO 0.77 10e9/L 014 Unknown COMPLETE BLOOD COUNT 6370943 ABS EOS 0.15 10e9/L 014 Unknown COMPLETE BLOOD COUNT 8354103 ABS BASO 0.01 10e9/L 014 Unknown COMPLETE BLOOD COUNT 8116212 RDW-SD 44.7 fL 4 Unknown COMPREHENSIVE METABOLIC 55119 AST 14 U/L 2013 Unknown COMPREHENSIVE METABOLIC 04481 ALT 12 IU/L 2013 Unknown COMPREHENSIVE METABOLIC 47577 BUN 24 MG/DL 2013 Unknown COMPREHENSIVE METABOLIC 26463 ALBUMIN 4.5 GM/DL 2013 Unknown COMPREHENSIVE METABOLIC 53079 CHLORIDE 104 MMOL/L 12/14 Unknown COMPREHENSIVE METABOLIC 89147 BILI TOT 0.6 MG/DL 2013 Unknown COMPREHENSIVE METABOLIC 62403 ALK PHOS 82 U/L 2013 Unknown COMPREHENSIVE METABOLIC 48057 SODIUM 135 MMOL/L 12/14 Unknown COMPREHENSIVE METABOLIC 66527 CREATININE 1.25 MG/DL 12/05 Unknown COMPREHENSIVE METABOLIC 53086 CALCIUM 9.8 MG/DL 2013 Unknown COMPREHENSIVE METABOLIC 55293 POTASSIUM 4.7 MMOL/L 12/14 Unknown COMPREHENSIVE METABOLIC 69035 PROT TOT 6.7 GM/DL 2013 Unknown COMPREHENSIVE METABOLIC 28912 Glucose 126 MG/DL 2013 Unknown COMPREHENSIVE METABOLIC 96751 BICARB 27 MMOL/L 2013 Unknown COMPREHENSIVE METABOLIC 71823 ANION GAP 4 MEQ/L 2013 Unknown THYROID STIMULATING HORMONE 05776 TSH 3.281 uIU/ML 12/14/2013 Unknown FREE T4 61609 FREE T4 1.28 NG/DL 12/14/2013 Unknown LIPID GROUP 47154 HDL TEST 36 MG/DL 12/14/2013 Unknown LIPID GROUP 35134 TRIG 253 MG/DL 12/14/2013 Unknown LIPID GROUP 57112 TEST LDL 56 MG/DL 12/14/2013 Unknown LIPID GROUP 41573 CHOL 143 MG/DL 12/14/2013 Unknown LIPID GROUP 87146 RCHOL/HDL 3.97 RATIO 12/14/2013 Unknow n LIPID GROUP 90253 NON-HDL CH 107 MG/DL 12/14/2013 Unknow n GLYCOSYLATED HEMOGLOBIN TEST 74145 A1C HPLC 22802-5 6.1 % 0 12/14/2013 Unknown GLYCOSYLATED HEMOGLOBIN TEST 89006 A1C HPLC 56033-8 6.0 % 0 06/08/2013 Unknown LIPID GROUP 44301 HDL TEST 39 MG/DL 06/08/2013 Unknown LIPID GROUP 92341 TRIG 166 MG/DL 06/08/2013 Unknown LIPID GROUP 35454 TEST LDL 86 MG/DL 06/08/2013 Unknown LIPID GROUP 45237 CHOL 158 MG/DL 06/08/2013 Unknown LIPID GROUP 36141 RCHOL/HDL 4.05 RATIO 06/08/2013 Unknow n COMPREHENSIVE METABOLIC 68127 AST 17 U/L 2013 Unknown COMPREHENSIVE METABOLIC 94276 ALT 25 IU/L 2013 Unknown COMPREHENSIVE METABOLIC 23344 BUN 18 MG/DL 2013 Unknown COMPREHENSIVE METABOLIC 51764 ALBUMIN 4.5 GM/DL 2013 Unknown COMPREHENSIVE METABOLIC 45753 CHLORIDE 103 MMOL/L 06/08 Unknown COMPREHENSIVE METABOLIC 25956 BILI TOT 0.4 MG/DL 2013 Unknown COMPREHENSIVE METABOLIC 08232 ALK PHOS 72 U/L 2013 Unknown COMPREHENSIVE METABOLIC 63801 SODIUM 137 MMOL/L 06/08 Unknown COMPREHENSIVE METABOLIC 63984 CREATININE 1.07 MG/DL 08/2013 Unknown COMPREHENSIVE METABOLIC 82519 CALCIUM 9.7 MG/DL 2013 Unknown COMPREHENSIVE METABOLIC 46598 POTASSIUM 4.7 MMOL/L 06/08 Unknown COMPREHENSIVE METABOLIC 75612 PROT TOT 6.6 GM/DL 2013 Unknown COMPREHENSIVE METABOLIC 77934 Glucose 130 MG/DL 2013 Unknown COMPREHENSIVE METABOLIC 95203 BICARB 25 MMOL/L 2013 Unknown COMPREHENSIVE METABOLIC 60791 ANION GAP 9 MEQ/L 2013 Unknown FREE T4 49710 FREE T4 1.29 NG/DL 06/08/2013 Unknown THYROID STIMULATING HORMONE 12483 TSH 2.445 uIU/ML 06/08/2013 Unknown GFR CALC 5247733 GFR AA >60 ML/MIN 06/08/2013 Unknown GFR CALC 3244871 GFR NON-AA >60 ML/MIN 06/08/2013 Unknown COMPLETE BLOOD COUNT 8965263 WBC 8.2 10e9/L 06/09/19 14 Unknown COMPLETE BLOOD COUNT 8854539 RBC 4.63 10e12/L 2013 Unknown COMPLETE BLOOD COUNT 4213287 HGB 14.1 g/dL 4 Unknown COMPLETE BLOOD COUNT 3664125 HCT DET 42.6 % 4 Unknown COMPLETE BLOOD COUNT 4395371 MCV 92.0 fL 4 Unknown COMPLETE BLOOD COUNT 0404425 MCH 30.5 pg 4 Unknown COMPLETE BLOOD COUNT 6485339 MCHC 33.1 g/dL 4 Unknown COMPLETE BLOOD COUNT 3887250 PLT 222 10e9/L 06/09/19 14 Unknown COMPLETE BLOOD COUNT 6591566 MPV 10.8 fL 4 Unknown COMPLETE BLOOD COUNT 9918738 SAMIR % 60.8 % 4 Unknown COMPLETE BLOOD COUNT 8221607 LY % 29.2 % 4 Unknown COMPLETE BLOOD COUNT 1826735 MON % 7.6 % 4 Unknown COMPLETE BLOOD COUNT 2989522 EOS % 2.3 % 4 Unknown COMPLETE BLOOD COUNT 8918287 BASO % 0.1 % 4 Unknown COMPLETE BLOOD COUNT 7728532 RDW 13.7 % 4 Unknown COMPLETE BLOOD COUNT 9672954 ABS SAMIR 4.99 10e9/L 014 Unknown COMPLETE BLOOD COUNT 9154791 ABS LYMPH 2.39 10e9/L 014 Unknown COMPLETE BLOOD COUNT 8993737 ABS MONO 0.62 10e9/L 014 Unknown COMPLETE BLOOD COUNT [id number] ABS EOS 0.19 10e9/L 014 Unknown COMPLETE BLOOD COUNT 4178887 ABS BASO 0.01 10e9/L 014 Unknown COMPLETE BLOOD COUNT 1758230 RDW-SD 45.2 fL 4 Unknown LIPID GROUP 73719 HDL TEST 40 MG/DL 11/11/2012 Unknown LIPID GROUP 70636 TRIG 153 MG/DL 11/11/2012 Unknown LIPID GROUP 25352 TEST LDL 71 MG/DL 11/11/2012 Unknown LIPID GROUP 50228 CHOL 142 MG/DL 11/11/2012 Unknown LIPID GROUP 90887 RCHOL/HDL 3.55 RATIO 11/11/2012 Unknow n GFR CALC 9314188 GFR AA >60 ML/MIN 11/11/2012 Unknown GFR CALC 2263230 GFR NON-AA 57.0L ML/MIN 11/11/2012 Unkno wn HEMOGLOBIN A1C (GLYCOSYLATED) 1384709 A1C [facility] 36298-4 5.9 % 11/11/2012 Unknown THYROID STIMULATING HORMONE 22528 TSH 2.439 uIU/ML 11/11/2012 Unknown COMPLETE BLOOD COUNT 8106586 WBC 8.5 10e9/L 11/12/19 13 Unknown COMPLETE BLOOD COUNT 2746430 RBC 4.42 10e12/L 2012 Unknown COMPLETE BLOOD COUNT 7794146 HGB 13.7 g/dL 3 Unknown COMPLETE BLOOD COUNT 7886069 HCT DET 41.3 % 3 Unknown COMPLETE BLOOD COUNT 6566773 MCV 93.4 fL 3 Unknown COMPLETE BLOOD COUNT 6946234 MCH 31.0 pg 3 Unknown COMPLETE BLOOD COUNT 4735612 MCHC 33.2 g/dL 3 Unknown COMPLETE BLOOD COUNT 0630482 PLT 220 10e9/L 11/12/19 13 Unknown COMPLETE BLOOD COUNT 9061254 MPV 10.8 fL 3 Unknown COMPLETE BLOOD COUNT 9807251 SAMIR % 60.4 % 3 Unknown COMPLETE BLOOD COUNT 7743581 LY % 28.7 % 3 Unknown COMPLETE BLOOD COUNT 6466256 MON % 8.0 % 3 Unknown COMPLETE BLOOD COUNT 7677721 EOS % 2.8 % 3 Unknown COMPLETE BLOOD COUNT 3882492 BASO % 0.1 % 3 Unknown COMPLETE BLOOD COUNT 7705592 RDW 13.7 % 3 Unknown COMPLETE BLOOD COUNT 9486484 ABS SAMIR 5.13 10e9/L 013 Unknown COMPLETE BLOOD COUNT 1242028 ABS LYMPH 2.44 10e9/L 013 Unknown COMPLETE BLOOD COUNT 3486934 ABS MONO 0.68 10e9/L 013 Unknown COMPLETE BLOOD COUNT 7767101 ABS EOS 0.24 10e9/L 013 Unknown COMPLETE BLOOD COUNT 8763670 ABS BASO 0.01 10e9/L 013 Unknown COMPLETE BLOOD COUNT 4275744 RDW-SD 45.6 fL 3 Unknown COMPREHENSIVE METABOLIC 86046 AST 19 U/L 2012 Unknown COMPREHENSIVE METABOLIC 93410 ALT 28 IU/L 2012 Unknown COMPREHENSIVE METABOLIC 54214 BUN 31 MG/DL 2012 Unknown COMPREHENSIVE METABOLIC 34174 ALBUMIN 4.7 GM/DL 2012 Unknown COMPREHENSIVE METABOLIC 79644 CHLORIDE 106 MMOL/L 11/11 Unknown COMPREHENSIVE METABOLIC 47833 BILI TOT 0.5 MG/DL 2012 Unknown COMPREHENSIVE METABOLIC 87325 ALK PHOS 64 U/L 2012 Unknown COMPREHENSIVE METABOLIC 19143 SODIUM 136 MMOL/L 11/11 Unknown COMPREHENSIVE METABOLIC 90507 CREATININE 1.27 MG/DL 11/2012 Unknown COMPREHENSIVE METABOLIC 12189 CALCIUM 9.4 MG/DL 2012 Unknown COMPREHENSIVE METABOLIC 37971 POTASSIUM 4.9 MMOL/L 11/11 Unknown COMPREHENSIVE METABOLIC 35788 PROT TOT 6.7 GM/DL 2012 Unknown COMPREHENSIVE METABOLIC 22559 Glucose 108 MG/DL 2012 Unknown COMPREHENSIVE METABOLIC 12621 BICARB 21 MMOL/L 2012 Unknown COMPREHENSIVE METABOLIC 21726 ANION GAP 9 MEQ/L 2012 Unknown THYROID STIMULATING HORMONE 01900 TSH 2.572 uIU/ML 05/04/2012 Unknown COMPLETE BLOOD COUNT 2574852 WBC 9.3 10e9/L 05/04/19 13 Unknown COMPLETE BLOOD COUNT [id number] RBC 4.43 10e12/L 2012 Unknown COMPLETE BLOOD COUNT 6069264 HGB 14.2 g/dL 3 Unknown COMPLETE BLOOD COUNT 8348571 HCT DET 41.1 % 3 Unknown COMPLETE BLOOD COUNT 6228417 MCV 92.8 fL 3 Unknown COMPLETE BLOOD COUNT 0928681 MCH 32.1 pg 3 Unknown COMPLETE BLOOD COUNT 4888219 MCHC 34.5 g/dL 3 Unknown COMPLETE BLOOD COUNT 2636394 PLT 193 10e9/L 05/04/19 13 Unknown COMPLETE BLOOD COUNT 6366563 MPV 10.8 fL 3 Unknown COMPLETE BLOOD COUNT 8452622 SAMIR % 63.0 % 3 Unknown COMPLETE BLOOD COUNT 3081531 LY % 25.3 % 3 Unknown COMPLETE BLOOD COUNT 6764274 MON % 9.1 % 3 Unknown COMPLETE BLOOD COUNT 3566411 EOS % 2.5 % 3 Unknown COMPLETE BLOOD COUNT 2034955 BASO % 0.1 % 3 Unknown COMPLETE BLOOD COUNT 4312368 RDW 12.6 % 3 Unknown COMPLETE BLOOD COUNT 6223183 ABS SAMIR 5.86 10e9/L 013 Unknown COMPLETE BLOOD COUNT 6558935 ABS LYMPH 2.35 10e9/L 013 Unknown COMPLETE BLOOD COUNT 8124308 ABS MONO 0.85 10e9/L 013 Unknown COMPLETE BLOOD COUNT 2590631 ABS EOS 0.23 10e9/L 013 Unknown COMPLETE BLOOD COUNT 3177247 ABS BASO 0.01 10e9/L 013 Unknown COMPLETE BLOOD COUNT 2799556 RDW-SD 41.2 fL 3 Unknown LIPID GROUP 72681 HDL TEST 35 MG/DL 05/04/2012 Unknown LIPID GROUP 25858 TRIG 236 MG/DL 05/04/2012 Unknown LIPID GROUP 53373 TEST LDL 64 MG/DL 05/04/2012 Unknown LIPID GROUP 41915 CHOL 146 MG/DL 05/04/2012 Unknown LIPID GROUP 53874 RCHOL/HDL 4.17 RATIO 05/04/2012 Unknow n COMPREHENSIVE METABOLIC 10628 AST 23 U/L 2012 Unknown COMPREHENSIVE METABOLIC 37758 ALT 33 IU/L 2012 Unknown COMPREHENSIVE METABOLIC 79147 BUN 16 MG/DL 2012 Unknown COMPREHENSIVE METABOLIC 12209 ALBUMIN 4.8 GM/DL 2012 Unknown COMPREHENSIVE METABOLIC 99345 CHLORIDE 104 MMOL/L 05/04 Unknown COMPREHENSIVE METABOLIC 18554 BILI TOT 0.5 MG/DL 2012 Unknown COMPREHENSIVE METABOLIC 05636 ALK PHOS 70 U/L 2012 Unknown COMPREHENSIVE METABOLIC 80509 SODIUM 138 MMOL/L 05/04 Unknown COMPREHENSIVE METABOLIC 09241 CREATININE 1.08 MG/DL 04/07 Unknown COMPREHENSIVE METABOLIC 75440 CALCIUM 9.7 MG/DL 2012 Unknown COMPREHENSIVE METABOLIC 74816 POTASSIUM 4.4 MMOL/L 05/04 Unknown COMPREHENSIVE METABOLIC 03697 PROT TOT 6.8 GM/DL 2012 Unknown COMPREHENSIVE METABOLIC 07036 Glucose 114 MG/DL 2012 Unknown COMPREHENSIVE METABOLIC 62522 BICARB 27 MMOL/L 2012 Unknown COMPREHENSIVE METABOLIC 98820 ANION GAP 7 MEQ/L 2012 Unknown FREE T4 43191 FREE T4 1.11 NG/DL 05/04/2012 Unknown GFR CALC 4564939 GFR AA >60 ML/MIN 05/04/2012 Unknown GFR CALC 1592761 GFR NON-AA >60 ML/MIN 05/04/2012 Unknown GLYCOSYLATED HEMOGLOBIN TEST 42507 A1C HPLC 50041-3 5.8 % 0 10/29/2011 Unknown COMPREHENSIVE METABOLIC 90912 AST 17 U/L 2011 Unknown COMPREHENSIVE METABOLIC 25728 ALT 21 IU/L 2011 Unknown COMPREHENSIVE METABOLIC 75250 BUN 17 MG/DL 2011 Unknown COMPREHENSIVE METABOLIC 93016 ALBUMIN 4.8 GM/DL 2011 Unknown COMPREHENSIVE METABOLIC 82416 CHLORIDE 106 MMOL/L 10/28 Unknown COMPREHENSIVE METABOLIC 53443 BILI TOT 0.6 MG/DL 2011 Unknown COMPREHENSIVE METABOLIC 68901 ALK PHOS 57 U/L 2011 Unknown COMPREHENSIVE METABOLIC 33605 SODIUM 139 MMOL/L 10/28 Unknown COMPREHENSIVE METABOLIC 35550 CREATININE 1.08 MG/DL 10/05 Unknown COMPREHENSIVE METABOLIC 48919 CALCIUM 9.6 MG/DL 2011 Unknown COMPREHENSIVE METABOLIC 73204 POTASSIUM 4.4 MMOL/L 10/28 Unknown COMPREHENSIVE METABOLIC 53298 PROT TOT 6.9 GM/DL 2011 Unknown COMPREHENSIVE METABOLIC 62618 Glucose 104 MG/DL 2011 Unknown COMPREHENSIVE METABOLIC 77614 BICARB 25 MMOL/L 2011 Unknown COMPREHENSIVE METABOLIC 43701 ANION GAP 8 MEQ/L 2011 Unknown LIPID GROUP 68661 HDL TEST 39 MG/DL 10/29/2011 Unknown LIPID GROUP 42033 TRIG 176 MG/DL 10/29/2011 Unknown LIPID GROUP 45789 TEST LDL 70 MG/DL 10/29/2011 Unknown LIPID GROUP 85020 CHOL 144 MG/DL 10/29/2011 Unknown LIPID GROUP 40675 RCHOL/HDL 3.69 RATIO 10/29/2011 Unknow n GFR CALC 5279110 GFR AA >60 ML/MIN 10/29/2011 Unknown GFR CALC 4595808 GFR NON-AA >60 ML/MIN 10/29/2011 Unknown GFR CALC 1854934 GFR AA >60 ML/MIN 03/14/2011 Unknown GFR CALC 8440505 GFR NON-AA >60 ML/MIN 03/14/2011 Unknown GLYCOSYLATED HEMOGLOBIN TEST 82491 A1C HPLC 32552-7 5.7 % 1 05/15/2010 Unknown COMPREHENSIVE METABOLIC 42923 AST 18 U/L 2010 Unknown COMPREHENSIVE METABOLIC 34084 ALT 25 IU/L 2010 Unknown COMPREHENSIVE METABOLIC 84109 BUN 15 MG/DL 2010 Unknown COMPREHENSIVE METABOLIC 84225 ALBUMIN 4.6 GM/DL 2010 Unknown COMPREHENSIVE METABOLIC 30919 CHLORIDE 107 MMOL/L 03/14 Unknown COMPREHENSIVE METABOLIC 88728 BILI TOT 0.6 MG/DL 2010 Unknown COMPREHENSIVE METABOLIC 79979 ALK PHOS 54 U/L 2010 Unknown COMPREHENSIVE METABOLIC 08699 SODIUM 140 MMOL/L 03/14 Unknown COMPREHENSIVE METABOLIC 11617 CREATININE 1.02 MG/DL 12/2010 Unknown COMPREHENSIVE METABOLIC 77288 CALCIUM 9.4 MG/DL 2010 Unknown COMPREHENSIVE METABOLIC 46423 POTASSIUM 4.6 MMOL/L 03/14 Unknown COMPREHENSIVE METABOLIC 40395 PROT TOT 7.0 GM/DL 2010 Unknown COMPREHENSIVE METABOLIC 00567 Glucose 107 MG/DL 2010 Unknown COMPREHENSIVE METABOLIC 04767 BICARB 28 MMOL/L 2010 Unknown COMPREHENSIVE METABOLIC 47640 ANION GAP 5 MEQ/L 2010 Unknown LIPID GROUP 09593 HDL TEST 39 MG/DL 03/14/2011 Unknown LIPID GROUP 13984 TRIG 157 MG/DL 03/14/2011 Unknown LIPID GROUP 16826 TEST LDL 66 MG/DL 03/14/2011 Unknown LIPID GROUP 42446 CHOL 136 MG/DL 03/14/2011 Unknown LIPID GROUP 80823 RCHOL/HDL 3.49 RATIO 03/14/2011 Unknow n GFR CALC 8695151 GFR AA >60 ML/MIN 11/11/2010 Unknown GFR CALC 1774721 GFR NON-AA >60 ML/MIN 11/11/2010 Unknown LIPID GROUP 13895 HDL TEST 39 MG/DL 11/11/2010 Unknown LIPID GROUP 75877 TRIG 212 MG/DL 11/11/2010 Unknown LIPID GROUP 07101 TEST LDL 67 MG/DL 11/11/2010 Unknown LIPID GROUP 58988 CHOL 148 MG/DL 11/11/2010 Unknown LIPID GROUP 36796 RCHOL/HDL 3.79 RATIO 11/11/2010 Unknow n COMPREHENSIVE METABOLIC 95186 AST 17 U/L 2010 Unknown COMPREHENSIVE METABOLIC 22018 ALT 21 IU/L 2010 Unknown COMPREHENSIVE METABOLIC 11182 BUN 16 MG/DL 2010 Unknown COMPREHENSIVE METABOLIC 80505 ALBUMIN 4.6 GM/DL 2010 Unknown COMPREHENSIVE METABOLIC 95050 CHLORIDE 106 MMOL/L 11/11 Unknown COMPREHENSIVE METABOLIC 53353 BILI TOT 0.5 MG/DL 2010 Unknown COMPREHENSIVE METABOLIC 48212 ALK PHOS 61 U/L 2010 Unknown COMPREHENSIVE METABOLIC 53243 SODIUM 139 MMOL/L 11/11 Unknown COMPREHENSIVE METABOLIC 93408 CREATININE 1.00 MG/DL 11/2010 Unknown COMPREHENSIVE METABOLIC 24895 CALCIUM 9.5 MG/DL 2010 Unknown COMPREHENSIVE METABOLIC 67635 POTASSIUM 4.5 MMOL/L 11/11 Unknown COMPREHENSIVE METABOLIC 01909 PROT TOT 6.9 GM/DL 2010 Unknown COMPREHENSIVE METABOLIC 75913 Glucose 111 MG/DL 2010 Unknown COMPREHENSIVE METABOLIC 11275 BICARB 26 MMOL/L 2010 Unknown COMPREHENSIVE METABOLIC 79100 ANION GAP 7 MEQ/L 2010 Unknown HEMOGLOBIN A1C (GLYCOSYLATED) 39843 A1C HPLC 91473-2 5.6 % 07/24/2010 Unknown GFR CALC 9275449 GFR AA >60 ML/MIN 07/23/2010 Unknown GFR CALC 7127574 GFR NON-AA >60 ML/MIN 07/23/2010 Unknown COMPREHENSIVE METABOLIC 97660 AST 19 U/L 2010 Unknown COMPREHENSIVE METABOLIC 84726 ALT 33 IU/L 2010 Unknown COMPREHENSIVE METABOLIC 98321 BUN 14 MG/DL 2010 Unknown COMPREHENSIVE METABOLIC 96362 ALBUMIN 4.7 GM/DL 2010 Unknown COMPREHENSIVE METABOLIC 36259 CHLORIDE 107 MMOL/L 07/23 Unknown COMPREHENSIVE METABOLIC 49398 BILI TOT 0.4 MG/DL 2010 Unknown COMPREHENSIVE METABOLIC 87175 ALK PHOS 80 U/L 2010 Unknown COMPREHENSIVE METABOLIC 78772 SODIUM 141 MMOL/L 07/23 Unknown COMPREHENSIVE METABOLIC 23439 CREATININE 0.97 MG/DL 07/05 Unknown COMPREHENSIVE METABOLIC 96811 CALCIUM 9.5 MG/DL 2010 Unknown COMPREHENSIVE METABOLIC 07894 POTASSIUM 4.1 MMOL/L 07/23 Unknown COMPREHENSIVE METABOLIC 98151 PROT TOT 6.8 GM/DL 2010 Unknown COMPREHENSIVE METABOLIC 66786 Glucose 120 MG/DL 2010 Unknown COMPREHENSIVE METABOLIC 38778 BICARB 26 MMOL/L 2010 Unknown COMPREHENSIVE METABOLIC 87319 ANION GAP 8 MEQ/L 2010 Unknown LIPID GROUP 71387 HDL TEST 41 MG/DL 07/23/2010 Unknown LIPID GROUP 71756 TRIG 175 MG/DL 07/23/2010 Unknown LIPID GROUP 32561 TEST LDL 72 MG/DL 07/23/2010 Unknown LIPID GROUP 76752 CHOL 148 MG/DL 07/23/2010 Unknown LIPID GROUP 18841 RCHOL/HDL 3.61 RATIO 07/23/2010 Unknow n PSA FREE AND TOTAL 68915|16108 % FREE PSA FOOTNOTE % 011 Unknown PSA FREE AND TOTAL 50843|88219 XPSA TOTAL 0.83 NG/ML 011 Unknown PSA FREE AND TOTAL 91468|55122 XPSA FREE 0.13 NG/ML 04/26/19 11 Unknown VITAMIN D TOTAL (25 HYDROXY) 88670 VIT D TOTL 26 NG/ML 04/22/2010 Unknown TESTOSTERONE TOTAL 38491 TESTOS TO 387 NG/DL 04/19/2010 Unknown GFR CALC 8705427 GFR AA >60 ML/MIN 04/19/2010 Unknown GFR CALC 5233292 GFR NON-AA >60 ML/MIN 04/19/2010 Unknown COMPLETE BLOOD COUNT 65624 WBC 7.0 10e9/L 04/19/19 11 Unknown COMPLETE BLOOD COUNT 69603 RBC 5.07 10e12/L 2010 Unknown COMPLETE BLOOD COUNT 52492 HGB 15.6 g/dL 1 Unknown COMPLETE BLOOD COUNT 47624 HCT DET 46.2 % 1 Unknown COMPLETE BLOOD COUNT 30140 MCV 91.1 fL 1 Unknown COMPLETE BLOOD COUNT 18301 MCH 30.8 pg 1 Unknown COMPLETE BLOOD COUNT 28495 MCHC 33.8 g/dL 1 Unknown COMPLETE BLOOD COUNT 65952 PLT 205 10e9/L 04/19/19 11 Unknown COMPLETE BLOOD COUNT 67415 MPV 11.1 fL 1 Unknown COMPLETE BLOOD COUNT 96558 SAMIR % 62.4 % 1 Unknown COMPLETE BLOOD COUNT 30137 LY % 28.5 % 1 Unknown COMPLETE BLOOD COUNT 18494 MON % 6.9 % 1 Unknown COMPLETE BLOOD COUNT 96322 EOS % 2.1 % 1 Unknown COMPLETE BLOOD COUNT 71529 BASO % 0.1 % 1 Unknown COMPLETE BLOOD COUNT 13498 RDW 13.4 % 1 Unknown COMPLETE BLOOD COUNT 01631 ABS SAMIR 4.37 10e9/L 011 Unknown COMPLETE BLOOD COUNT 46479 ABS LYMPH 2.00 10e9/L 011 Unknown COMPLETE BLOOD COUNT 44242 ABS MONO 0.48 10e9/L 011 Unknown COMPLETE BLOOD COUNT 94896 ABS EOS 0.15 10e9/L 011 Unknown COMPLETE BLOOD COUNT 00603 ABS BASO 0.01 10e9/L 011 Unknown COMPLETE BLOOD COUNT 36827 RDW-SD 43.8 fL 1 Unknown LIPID GROUP 71064 HDL TEST 39 MG/DL 04/19/2010 Unknown LIPID GROUP 81767 TRIG 244 MG/DL 04/19/2010 Unknown LIPID GROUP 14394 TEST LDL 168 MG/DL 04/19/2010 Unknown LIPID GROUP 58954 CHOL 256 MG/DL 04/19/2010 Unknown LIPID GROUP 88132 RCHOL/HDL 6.56 RATIO 04/19/2010 Unknow n COMPREHENSIVE METABOLIC 74208 AST 28 U/L 2010 Unknown COMPREHENSIVE METABOLIC 89046 ALT 46 IU/L 2010 Unknown COMPREHENSIVE METABOLIC 10232 BUN 14 MG/DL 2010 Unknown COMPREHENSIVE METABOLIC 66256 ALBUMIN 4.9 GM/DL 2010 Unknown COMPREHENSIVE METABOLIC 81299 CHLORIDE 104 MMOL/L 04/19 Unknown COMPREHENSIVE METABOLIC 07815 BILI TOT 0.8 MG/DL 2010 Unknown COMPREHENSIVE METABOLIC 01489 ALK PHOS 71 U/L 2010 Unknown COMPREHENSIVE METABOLIC 78375 SODIUM 139 MMOL/L 04/19 Unknown COMPREHENSIVE METABOLIC 78959 CREATININE 1.06 MG/DL 04/06 Unknown COMPREHENSIVE METABOLIC 21989 CALCIUM 9.9 MG/DL 2010 Unknown COMPREHENSIVE METABOLIC 63325 POTASSIUM 4.3 MMOL/L 04/19 Unknown COMPREHENSIVE METABOLIC 57994 PROT TOT 7.2 GM/DL 2010 Unknown COMPREHENSIVE METABOLIC 79841 Glucose 99 MG/DL 2010 Unknown COMPREHENSIVE METABOLIC 64308 BICARB 28 MMOL/L 2010 Unknown COMPREHENSIVE METABOLIC 03086 ANION GAP 7 MEQ/L 2010 Unknown FREE T4 68208 FREE T4 1.26 NG/DL 04/19/2010 Unknown Procedures Procedure Codes Date ROUTINE VENIPUNCTURE CPT-4: 43687 05/24/2019 COMPREHEN METABOLIC PANEL CPT-4: 52578 05/24/2019 A1C HPLC CPT-4: 43576 05/24/2019 FLU VACC PRSV FREE INC ANTIG 65 AND OLDER CPT-4: 44885 01/26/2019 FLU VACC PRSV FREE INC ANTIG 65 AND OLDER CPT-4: 01952 01/26/2019 ADMIN INFLUENZA VIRUS VAC CPT-4: G0008 01/26/2019 ROUTINE VENIPUNCTURE CPT-4: 98785 01/26/2019 COMPREHEN METABOLIC PANEL CPT-4: 53084 01/26/2019 COMPLETE CBC W/AUTO DIFF WBC CPT-4: 09771 01/26/2019 LIPID PANEL CPT-4: 00764 01/26/2019 A1C HPLC CPT-4: 24827 01/26/2019 ROUTINE VENIPUNCTURE CPT-4: 99000 09/30/2018 METABOLIC PANEL TOTAL CA CPT-4: 23833 09/30/2018 URINALYSIS NONAUTO W/O SCOPE CPT-4: 49314 08/19/2018 URINE CULTURE/ COLONY COUNT CPT-4: 66182 08/19/2018 MICROALBUMIN QUANTITATIVE CPT-4: 36727 08/19/2018 ROUTINE VENIPUNCTURE CPT-4: 14035 08/16/2018 ASSAY THYROID STIM HORMONE CPT-4: 17072 08/16/2018 COMPREHEN METABOLIC PANEL CPT-4: 55239 08/16/2018 COMPLETE CBC W/AUTO DIFF WBC CPT-4: 55321 08/16/2018 LIPID PANEL CPT-4: 79836 08/16/2018 A1C HPLC CPT-4: 32407 08/16/2018 LIPID PANEL CPT-4: 05964 05/05/2018 COMPREHEN METABOLIC PANEL CPT-4: 68230 05/05/2018 ROUTINE VENIPUNCTURE CPT-4: 73271 05/05/2018 A1C HPLC CPT-4: 51672 05/05/2018 COMPLETE CBC W/AUTO DIFF WBC CPT-4: 76384 05/05/2018 ASSAY THYROID STIM HORMONE CPT-4: 84127 05/05/2018 MICROALBUMIN QUANTITATIVE CPT-4: 43484 01/19/2018 PRESCRIP TRANSMIT VIA ERX SY CPT-4: G8553 01/19/2018 ROUTINE VENIPUNCTURE CPT-4: 16751 01/13/2018 COMPREHEN METABOLIC PANEL CPT-4: 32389 01/13/2018 A1C HPLC CPT-4: 53395 01/13/2018 LIPID PANEL CPT-4: 62173 01/13/2018 ASSAY OF PSA TOTAL CPT-4: 75515 01/13/2018 ASSAY THYROID STIM HORMONE CPT-4: 32439 01/13/2018 ROUTINE VENIPUNCTURE CPT-4: 39797 10/06/2017 COMPREHEN METABOLIC PANEL CPT-4: 32114 10/06/2017 COMPLETE CBC W/AUTO DIFF WBC CPT-4: 80865 10/06/2017 LIPID PANEL CPT-4: 39654 10/06/2017 A1C HPLC CPT-4: 66575 10/06/2017 VITAMIN B-12 CPT-4: 05826 10/06/2017 DESTRUCT PREMALG LESION (Cryosurgery) CPT-4: 93691 DESTRUCT PREMALG LES 2-14 CPT-4: 15420 04/23/2017 PRESCRIP TRANSMIT VIA ERX SY CPT-4: G8553 03/11/2017 ROUTINE VENIPUNCTURE CPT-4: 67025 03/05/2017 ASSAY OF FREE THYROXINE CPT-4: 52094 03/05/2017 ASSAY THYROID STIM HORMONE CPT-4: 01850 03/05/2017 COMPREHEN METABOLIC PANEL CPT-4: 37681 03/05/2017 COMPLETE CBC W/AUTO DIFF WBC CPT-4: 98618 03/05/2017 LIPID PANEL CPT-4: 00865 03/05/2017 A1C HPLC CPT-4: 79256 03/05/2017 ROUTINE VENIPUNCTURE CPT-4: 44466 06/16/2016 ASSAY OF FREE THYROXINE CPT-4: 38493 06/16/2016 ASSAY THYROID STIM HORMONE CPT-4: 59947 06/16/2016 COMPREHEN METABOLIC PANEL CPT-4: 64434 06/16/2016 COMPLETE CBC W/AUTO DIFF WBC CPT-4: 90234 06/16/2016 LIPID PANEL CPT-4: 38615 06/16/2016 A1C HPLC CPT-4: 45223 06/16/2016 ROUTINE VENIPUNCTURE CPT-4: 37082 03/06/2016 ASSAY OF FREE THYROXINE CPT-4: 98275 03/06/2016 ASSAY THYROID STIM HORMONE CPT-4: 18765 03/06/2016 COMPREHEN METABOLIC PANEL CPT-4: 53124 03/06/2016 COMPLETE CBC W/AUTO DIFF WBC CPT-4: 47240 03/06/2016 LIPID PANEL CPT-4: 50710 03/06/2016 A1C HPLC CPT-4: 53027 03/06/2016 PRESCRIP TRANSMIT VIA ERX SY CPT-4: G8553 09/10/2015 PNEUMOCOCCAL VACC 23 ROSANNE IM CPT-4: 11493 09/06/2015 ADMIN PNEUMOCOCCAL VACCINE CPT-4: G0009 09/06/2015 ROUTINE VENIPUNCTURE CPT-4: 36106 08/31/2015 COMPREHEN METABOLIC PANEL CPT-4: 70905 08/31/2015 COMPLETE CBC W/AUTO DIFF WBC CPT-4: 09096 08/31/2015 LIPID PANEL CPT-4: 11266 08/31/2015 ASSAY OF PSA TOTAL CPT-4: 69191 08/31/2015 A1C HPLC CPT-4: 11541 08/31/2015 ASSAY OF FREE THYROXINE CPT-4: 91551 08/31/2015 ASSAY THYROID STIM HORMONE CPT-4: 50134 08/31/2015 PRESCRIP TRANSMIT VIA ERX SY CPT-4: G8553 06/29/2015 FLU VACC PRSV FREE INC ANTIG 65 AND OLDER CPT-4: 10219 01/17/2015 PNEUMOCOCCAL VACC 13 ROSANNE IM CPT-4: 00619 01/17/2015 ADMIN INFLUENZA VIRUS VAC CPT-4: G0008 01/17/2015 ADMIN PNEUMOCOCCAL VACCINE CPT-4: G0009 01/17/2015 DESTRUCT PREMALG LESION (Cryosurgery) CPT-4: 64026 PRESCRIP TRANSMIT VIA ERX SY CPT-4: G8553 01/17/2015 ROUTINE VENIPUNCTURE CPT-4: 81915 01/12/2015 COMPREHEN METABOLIC PANEL CPT-4: 54427 01/12/2015 COMPLETE CBC W/AUTO DIFF WBC CPT-4: 71557 01/12/2015 LIPID PANEL CPT-4: 99348 01/12/2015 A1C HPLC CPT-4: 37204 01/12/2015 DESTRUCT PREMALG LESION (Cryosurgery) CPT-4: 28703 ROUTINE VENIPUNCTURE CPT-4: 05810 08/15/2014 COMPREHEN METABOLIC PANEL CPT-4: 15087 08/15/2014 COMPLETE CBC W/AUTO DIFF WBC CPT-4: 90018 08/15/2014 LIPID PANEL CPT-4: 91793 08/15/2014 A1C HPLC CPT-4: 65952 08/15/2014 ASSAY OF PSA TOTAL CPT-4: 51165 08/15/2014 ASSAY OF FREE THYROXINE CPT-4: 73850 08/15/2014 ASSAY THYROID STIM HORMONE CPT-4: 41886 08/15/2014 ROUTINE VENIPUNCTURE CPT-4: 61644 12/14/2013 ASSAY OF FREE THYROXINE CPT-4: 08228 12/14/2013 ASSAY THYROID STIM HORMONE CPT-4: 93501 12/14/2013 COMPREHEN METABOLIC PANEL CPT-4: 04787 12/14/2013 COMPLETE CBC W/AUTO DIFF WBC CPT-4: 99435 12/14/2013 LIPID PANEL CPT-4: 40501 12/14/2013 A1C HPLC CPT-4: 84734 12/14/2013 ROUTINE VENIPUNCTURE CPT-4: 99455 06/08/2013 ASSAY OF FREE THYROXINE CPT-4: 35911 06/08/2013 ASSAY THYROID STIM HORMONE CPT-4: 94175 06/08/2013 COMPREHEN METABOLIC PANEL CPT-4: 23381 06/08/2013 COMPLETE CBC W/AUTO DIFF WBC CPT-4: 83161 06/08/2013 LIPID PANEL CPT-4: 84717 06/08/2013 A1C HPLC CPT-4: 17191 06/08/2013 ROUTINE VENIPUNCTURE CPT-4: 21981 11/11/2012 COMPREHEN METABOLIC PANEL CPT-4: 38730 11/11/2012 COMPLETE CBC W/AUTO DIFF WBC CPT-4: 74981 11/11/2012 LIPID PANEL CPT-4: 44494 11/11/2012 A1C GLYCOSYLATED HEMOGLOBIN TEST CPT-4: 26676 013 ASSAY THYROID STIM HORMONE CPT-4: 62612 11/11/2012 ROUTINE VENIPUNCTURE CPT-4: 05139 05/04/2012 ASSAY OF FREE THYROXINE CPT-4: 76814 05/04/2012 ASSAY THYROID STIM HORMONE CPT-4: 60923 05/04/2012 COMPREHEN METABOLIC PANEL CPT-4: 62934 05/04/2012 COMPLETE CBC W/AUTO DIFF WBC CPT-4: 54013 05/04/2012 LIPID PANEL CPT-4: 70582 05/04/2012 DESTRUCT PREMALG LESION (Cryosurgery) CPT-4: 44109 DESTRUCT PREMALG LES 2-14 CPT-4: 41807 03/02/2012 ROUTINE VENIPUNCTURE CPT-4: 87460 10/29/2011 COMPREHEN METABOLIC PANEL CPT-4: 39750 10/29/2011 LIPID PANEL CPT-4: 36460 10/29/2011 A1C GLYCOSYLATED HEMOGLOBIN TEST CPT-4: 79195 012 ROUTINE VENIPUNCTURE CPT-4: 12672 07/29/2011 COMPREHEN METABOLIC PANEL CPT-4: 33369 07/29/2011 LIPID PANEL CPT-4: 78062 07/29/2011 A1C GLYCOSYLATED HEMOGLOBIN TEST CPT-4: 84369 012 ROUTINE VENIPUNCTURE CPT-4: 87211 03/14/2011 COMPREHEN METABOLIC PANEL CPT-4: 80128 03/14/2011 LIPID PANEL CPT-4: 56845 03/14/2011 A1C GLYCOSYLATED HEMOGLOBIN TEST CPT-4: 73313 011 ROUTINE VENIPUNCTURE CPT-4: 42642 11/11/2010 COMPREHEN METABOLIC PANEL CPT-4: 67164 11/11/2010 LIPID PANEL CPT-4: 96836 11/11/2010 URINE CULTURE/ COLONY COUNT CPT-4: 88835 11/11/2010 URINALYSIS NONAUTO W/O SCOPE CPT-4: 03543 10/29/2010 URINE CULTURE/ COLONY COUNT CPT-4: 33894 10/29/2010 LIPID PANEL CPT-4: 06602 07/23/2010 COMPREHEN METABOLIC PANEL CPT-4: 85561 07/23/2010 ROUTINE VENIPUNCTURE CPT-4: 58505 07/23/2010 ROUTINE VENIPUNCTURE CPT-4: 56767 04/26/2010 PSA FREE AND TOTAL CPT-4: 07000|38495 04/26/2010 OCCULT BLOOD FECES CPT-4: 66874 04/24/2010 ROUTINE VENIPUNCTURE CPT-4: 39958 04/19/2010 COMPLETE CBC W/AUTO DIFF WBC CPT-4: 81130 04/19/2010 COMPREHEN METABOLIC PANEL CPT-4: 69858 04/19/2010 LIPID PANEL CPT-4: 48519 04/19/2010 TESTOSTERONE TOTAL - MALE CPT-4: 93330 04/19/2010 ASSAY THYROID STIM HORMONE CPT-4: 41520 04/19/2010 ASSAY OF FREE THYROXINE CPT-4: 06933 04/19/2010 VITAMIN D TOTAL (25 HYDROXY) CPT-4: 75968 04/19/2010 Vital Signs Date Vital 06/02/2019 Blood Pressure 1: 132/80 Code: 8480-6 BMI: 29.5 Code: 22301-8 Heart Rate 1: 64 bpm Height: 6'3" [...] 1: 112/70 Code: 8480-6 BMI: 28.9 Code: 19235-2 Heart Rate 1: 60 bpm Height: 6'3" Respiratory Rate: 20 bpm SpO2: 95% Tempera ture: 36.6 (C) / 97.9 (F) Weight: 231 lbs 01/19/2018 Blood Pressure 1: 150/82 Code: 8480-6 Heart Rate 1: 63 bpm Respiratory Rate: 18 bpm SpO2: 98% Temperature: 36.0 (C) / 96.8 (F) We ight: 225 lbs 10/15/2017 Blood Pressure 1: 126/82 Code: 8480-6 BMI: 27.9 Code: 16575-8 Heart Rate 1: 64 bpm Height: 6'3" Respiratory Rate: 20 bpm SpO2: 96% Tempera ture: 36.7 (C) / 98.1 (F) Weight: 223 lbs 04/23/2017 Blood Pressure 1: 136/74 Code: 8480-6 BMI: 28.7 Code: 20376-9 Heart Rate 1: 76 bpm Height: 6'3" Respiratory Rate: 20 bpm Temperature: 37 .0 (C) / 98.6 (F) Weight: 230 lbs 03/11/2017 Blood Pressure 1: 136/66 Code: 8480-6 BMI: 28.6 Code: 26739-9 Heart Rate 1: 60 bpm Height: 6'3" Respiratory Rate: 20 bpm Temperature: 36 .7 (C) / 98.1 (F) Weight: 229 lbs 07/09/2016 Blood Pressure 1: 132/80 Code: 8480-6 BMI: 27.7 Code: 80892-4 Heart Rate 1: 64 bpm Height: 6'3" Respiratory Rate: 20 bpm SpO2: 96% Tempera ture: 36.9 (C) / 98.4 (F) Weight: 222 lbs 03/10/2016 Blood Pressure 1: 134/78 Code: 8480-6 BMI: 28.5 Code: 93025-8 Heart Rate 1: 60 bpm Height: 6'3" Respiratory Rate: 20 bpm SpO2: 96% Tempera ture: 36.7 (C) / 98.1 (F) Weight: 228 lbs 09/12/2015 Blood Pressure 1: 136/78 Code: 8480-6 Heart Rate 1: 84 bpm Height: Respiratory Rate: 24 bpm SpO2: 97% Temperature: 36.4 (C) / 97.6 (F) We ight: 09/10/2015 Blood Pressure 1: 124/76 Code: 8480-6 BMI: 28.5 Code: 56833-8 Heart Rate 1: 76 bpm Height: 6'3" Respiratory Rate: 24 bpm SpO2: 97% Tempera ture: 36.4 (C) / 97.6 (F) Weight: 228 lbs 09/06/2015 Blood Pressure 1: 124/82 Code: 8480-6 BMI: 29.0 Code: 74696-8 Heart Rate 1: 66 bpm Height: 6'3" Respiratory Rate: 20 bpm SpO2: 97% Tempera ture: 36.4 (C) / 97.6 (F) Weight: 232 lbs 06/29/2015 Blood Pressure 1: 124/82 Code: 8480-6 Heart Rate 1: 88 bpm Height: Respiratory Rate: 20 bpm Temperature: 36.7 (C) / 98.1 (F) Weight: 01/17/2015 Blood Pressure 1: 124/78 Code: 8480-6 BMI: 27.7 Code: 20286-5 Heart Rate 1: 76 bpm Height: 6'3" Respiratory Rate: 20 bpm Temperature: 36 .6 (C) / 97.8 (F) Weight: 222 lbs 09/19/2014 Blood Pressure 1: 128/80 Code: 8480-6 BMI: 27.4 Code: 49837-9 Heart Rate 1: 64 bpm Height: 6'3" Respiratory Rate: 20 bpm Temperature: 36 .4 (C) / 97.6 (F) Weight: 219 lbs 10/17/2013 Blood Pressure 1: 116/70 Code: 8480-6 Heart Rate 1: 88 bpm Respiratory Rate: 20 bpm Temperature: 36.9 (C) / 98.4 (F) Weight: 220 lbs 09/23/2013 Blood Pressure 1: 124/80 Code: 8480-6 BMI: 28.7 Code: 87612-1 Heart Rate 1: 76 bpm Height: 6'3" Respiratory Rate: 20 bpm Temperature: 36 .8 (C) / 98.2 (F) Weight: 230 lbs 07/22/2013 Blood Pressure 1: 128/70 Code: 8480-6 He art Rate 1: 78 bpm 06/20/2013 Blood Pressure 1: 144/86 Code: 8480-6 BMI: 28.7 Code: 67759-2 Heart Rate 1: 92 bpm Height: 6'3" Respiratory Rate: 20 bpm Temperature: 36 .4 (C) / 97.6 (F) Weight: 230 lbs 11/25/2012 Blood Pressure 1: 128/80 Code: 8480-6 BMI: 27.5 Code: 11909-9 Heart Rate 1: 92 bpm Height: 6'3" Respiratory Rate: 20 bpm Temperature: 36 .8 (C) / 98.3 (F) Weight: 220 lbs 08/27/2012 Blood Pressure 1: 142/80 Code: 8480-6 BMI: 27.7 Code: 91755-8 Heart Rate 1: 76 bpm Height: 6'3" Respiratory Rate: 20 bpm Temperature: 36 .8 (C) / 98.3 (F) Weight: 222 lbs 05/11/2012 Blood Pressure 1: 136/80 Code: 8480-6 BMI: 27.7 Code: 83131-5 Heart Rate 1: 76 bpm Height: 6'3" Respiratory Rate: 20 bpm Temperature: 36 .8 (C) / 98.3 (F) Weight: 222 lbs 03/02/2012 Blood Pressure 1: 136/70 Code: 8480-6 BMI: 28.0 Code: 46537-5 Heart Rate 1: 80 bpm Height: 6'3" Respiratory Rate: 20 bpm Temperature: 36 .6 (C) / 97.8 (F) Weight: 224 lbs 12/11/2011 Blood Pressure 1: 142/80 Code: 8480-6 BMI: 27.1 Code: 69083-1 Heart Rate 1: 84 bpm Height: 6'3" Respiratory Rate: 20 bpm Temperature: 36 .9 (C) / 98.4 (F) Weight: 217 lbs 08/14/2011 Blood Pressure 1: 130/82 Code: 8480-6 He art Rate 1: 64 bpm 07/29/2011 Blood Pressure 1: 132/64 Code: 8480-6 BMI: 26.7 Code: 45572-2 Heart Rate 1: 72 bpm Height: 6'3" [...] 1: 142/88 Code: 8480-6 BMI: 26.4 Code: 39515-1 Heart Rate 1: 80 bpm Height: 6'3" [...] labs Encounters Encounter Performer Location Codes Date ([id number]) OFFICE/OUTPATIENT VISIT EST Diagnosis: Essential (primary) hypertension[ICD10: I10] Diagnosis: Gastro-esophageal reflux disease without esophagitis[ICD10: K21.9] Diagnosis: Type 2 diabetes mellitus with hyperglycemia[ICD10: E11.65] Najma MCARTHUR [employer] CPT-4: 99946 06/02/2019 ([id number]) NURSE/OUTPATIENT VISIT EST Diagnosis: Type 2 diabetes mellitus without complications[ICD10: E11.9] Diagnosis: Essential (primary) hypertension[ICD10: I10] Diagnosis: Mixed hyperlipidemia[ICD10: E78.2] Najma GODINEZ [employer] CPT-4: 32854 05/24/2019 ([id number]) OFFICE/OUTPATIENT VISIT EST Diagnosis: Essential (primary) hypertension[ICD10: I10] Diagnosis: Type 2 diabetes mellitus without complications[ICD10: E11.9] Diagnosis: Mixed hyperlipidemia[ICD10: E78.2] Najma GODINEZ [employer] CPT-4: 75983 01/31/2019 ([id number]) NURSE/OUTPATIENT VISIT EST Diagnosis: Mixed hyperlipidemia[ICD10: E78.2] Diagnosis: Type 2 diabetes mellitus without complications[ICD10: E11.9] Diagnosis: Essential (primary) hypertension[ICD10: I10] Diagnosis: Chronic kidney disease, unspecified[ICD10: N18.9] Najma MCARTHUR [employer] CPT-4: 66758 01/26/2019 ([id number]) NURSE/OUTPATIENT VISIT EST Diagnosis: Chronic kidney disease, unspecified[ICD10: N18.9] Diagnosis: Essential (primary) hypertension[ICD10: I10] Najma MCARTHUR [employer] CPT-4: 05195 09/30/2018 ([id number]) OFFICE/OUTPATIENT VISIT EST Diagnosis: Essential (primary) hypertension[ICD10: I10] Diagnosis: Type 2 diabetes mellitus without complications[ICD10: E11.9] Diagnosis: Mixed hyperlipidemia[ICD10: E78.2] Diagnosis: Unspecified kidney failure[ICD10: N19] Najma OG [employer] CPT-4: 73488 08/19/2018 ([id number]) NURSE/OUTPATIENT VISIT EST Diagnosis: Essential (primary) hypertension[ICD10: I10] Diagnosis: Type 1 diabetes mellitus with unspecified complications[ICD10: E10.8] Diagnosis: Mixed hyperlipidemia[ICD10: E78.2] Najma OG [employer] CPT-4: 23319 08/16/2018 ([id number]) OFFICE/OUTPATIENT VISIT EST Diagnosis: Essential (primary) hypertension[ICD10: I10] Diagnosis: Type 2 diabetes mellitus without complications[ICD10: E11.9] Diagnosis: Mixed hyperlipidemia[ICD10: E78.2] Najma GODINEZ [employer] CPT-4: 22845 05/10/2018 ([id number]) NURSE/OUTPATIENT VISIT EST Diagnosis: Essential (primary) hypertension[ICD10: I10] Diagnosis: Mixed hyperlipidemia[ICD10: E78.2] Diagnosis: Type 1 diabetes mellitus with unspecified complications[ICD10: E10.8] Najma Kathleenvicentedasha MANUELNAJMA Matilda [email or web address] [facility] CPT-4: 54279 05/05/2018 ([id number]) OFFICE/OUTPATIENT VISIT EST Diagnosis: Type 2 diabetes mellitus without complications[ICD10: E11.9] Diagnosis: Mixed hyperlipidemia[ICD10: E78.2] Diagnosis: Nicotine dependence, unspecified, uncomplicated[ICD10: F17.200] Diagnosis: Essential (primary) hypertension[ICD10: I10] Najma [employer] CPT-4: 71964 01/19/2018 ([id number]) NURSE/OUTPATIENT VISIT EST Diagnosis: Type 1 diabetes mellitus with unspecified complications[ICD10: E10.8] Diagnosis: Essential (primary) hypertension[ICD10: I10] Diagnosis: Male erectile disorder[ICD10: F52.21] Diagnosis: Encounter for screening for malignant neoplasm of prostate[ICD10: Z12.5] Najma OG [employer] [facility] CPT-4: 46130 01/13/2018 ([id number]) OFFICE/OUTPATIENT VISIT EST Diagnosis: Type 2 diabetes mellitus without complications[ICD10: E11.9] Diagnosis: Essential (primary) hypertension[ICD10: I10] Diagnosis: Mixed hyperlipidemia[ICD10: E78.2] Najma OG [facility] CPT-4: 17978 10/15/2017 ([id number]) NURSE/OUTPATIENT VISIT EST Diagnosis: Type 2 diabetes mellitus without complications[ICD10: E11.9] Diagnosis: Mixed hyperlipidemia[ICD10: E78.2] Diagnosis: Essential (primary) hypertension[ICD10: I10] Diagnosis: Glossitis[ICD10: K14.0] Najma THAKKAR [facility]rend[facility] CPT-4: 12767 10/06/2017 ([id number]) OFFICE/OUTPATIENT VISIT EST Diagnosis: Type 2 diabetes mellitus without complications[ICD10: E11.9] Diagnosis: Mixed hyperlipidemia[ICD10: E78.2] Diagnosis: Essential (primary) hypertension[ICD10: I10] Najma OG [facility] CPT-4: 23847 03/11/2017 ([id number]) OFFICE/OUTPATIENT VISIT EST Diagnosis: Type 1 diabetes mellitus with unspecified complications[ICD10: E10.8] Diagnosis: Mixed hyperlipidemia[ICD10: E78.2] Diagnosis: Essential (primary) hypertension[ICD10: I10] Diagnosis: Other fatigue[ICD10: R53.83] Najma OG [facility] CPT-4: 54933 03/05/2017 ([id number]) OFFICE/OUTPATIENT VISIT EST Diagnosis: Type 2 diabetes mellitus without complications[ICD10: E11.9] Diagnosis: Mixed hyperlipidemia[ICD10: E78.2] Diagnosis: Essential (primary) hypertension[ICD10: I10] Diagnosis: Nicotine dependence, unspecified, uncomplicated[ICD10: F17.200] Najma OG [facility] CPT-4: 70129 07/09/2016 ([id number]) OFFICE/OUTPATIENT VISIT EST Diagnosis: Type 1 diabetes mellitus with unspecified complications[ICD10: E10.8] Diagnosis: Mixed hyperlipidemia[ICD10: E78.2] Diagnosis: Essential (primary) hypertension[ICD10: I10] Najma OG DO [facility] CPT-4: 36009 06/16/2016 ([id number]) OFFICE/OUTPATIENT VISIT EST Diagnosis: Type 2 diabetes mellitus without complications[ICD10: E11.9] Diagnosis: Mixed hyperlipidemia[ICD10: E78.2] Diagnosis: Essential (primary) hypertension[ICD10: I10] Najma OG DO [facility] CPT-4: 21642 03/10/2016 ([id number]) OFFICE/OUTPATIENT VISIT EST Diagnosis: Type 1 diabetes mellitus with unspecified complications[ICD10: E10.8] Diagnosis: Mixed hyperlipidemia[ICD10: E78.2] Diagnosis: Essential (primary) hypertension[ICD10: I10] Najma OG [facility] CPT-4: 26892 03/06/2016 ([id number]) OFFICE/OUTPATIENT VISIT EST Diagnosis: Bitten or stung by nonvenomous insect and other nonvenomous arthropods, subsequent encounter[ICD10: W57.XXXD] Diagnosis: Insect bite (nonvenomous), right thigh, subsequent encounter[ICD10: S70.361D] Barbara OG [facility] CPT-4: 75596 11/2015 ([id number]) OFFICE/OUTPATIENT VISIT EST Diagnosis: Bitten or stung by nonvenomous insect and other nonvenomous arthropods, initial encounter[ICD10: W57.XXXA] Diagnosis: Insect bite (nonvenomous), right thigh, initial encounter[ICD10: S70.361A] Barbara OG DO [facility] CPT-4: 26304 09/2015 ([id number]) OFFICE/OUTPATIENT VISIT EST Diagnosis: Mixed hyperlipidemia[ICD10: E78.2] Diagnosis: Essential (primary) hypertension[ICD10: I10] Diagnosis: Type 2 diabetes mellitus without complications[ICD10: E11.9] Diagnosis: Encounter for immunization[ICD10: Z23] Diagnosis: Encounter for screening for malignant neoplasm of colon[ICD10: Z12.11] Diagnosis: Abnormal weight gain[ICD10: R63.5] Barbara Inocente ANUM GODINEZ Matilda LONG UsTrendy [facility] CPT-4: 56209 09/06/2015 ([id number]) OFFICE/OUTPATIENT VISIT EST Diagnosis: Type 2 diabetes mellitus without complications[ICD10: E11.9] Diagnosis: Mixed hyperlipidemia[ICD10: E78.2] Diagnosis: Essential (primary) hypertension[ICD10: I10] Diagnosis: Encounter for screening for malignant neoplasm of prostate[ICD10: Z12.5] Diagnosis: Other fatigue[ICD10: R53.83] Najma MCARTHUR [facility]ena[facility]ilde [facility] CPT-4: 83743 08/31/2015 OFFICE/OUTPATIENT VISIT EST Diagnosis: Diarrhea, unspecified[ICD10: R19.7] Henrietta MCCOY [facility] CPT-4: 26728 06/29/2015 OFFICE/OUTPATIENT VISIT EST Diagnosis: PNEUMOCOCCAL VACCINE[ICD10: Z23] Diagnosis: FLU VACCINE[ICD10: Z23] Diagnosis: Essential (primary) hypertension[ICD10: I10] Diagnosis: Mixed hyperlipidemia[ICD10: E78.2] Diagnosis: Type 1 diabetes mellitus with unspecified complications[ICD10: E10.8] Diagnosis: Actinic keratosis[ICD10: L57.0] Najma Grey [employer] Points[employer]ICENTE [employer] [facility] CPT-4: 46786 01/17/2015 ([id number]) OFFICE/OUTPATIENT VISIT EST Diagnosis: Type 2 diabetes mellitus without complications[ICD10: E11.9] Diagnosis: Impaired fasting glucose[ICD10: R73.01] Diagnosis: Mixed hyperlipidemia[ICD10: E78.2] Diagnosis: Essential (primary) hypertension[ICD10: I10] Najma [facility] CPT-4: 49596 01/12/2015 ([id number]) OFFICE/OUTPATIENT VISIT EST Diagnosis: - I - HYPERLIPIDEMIA NEC/NOS[ICD9: 272.4] Diagnosis: HYPERTENSION[ICD9: 401.9] Diagnosis: DM W/O COMPLICATION TYPE II[ICD9: 250.00] Diagnosis: ACTINIC KERATOSIS[ICD9: 702.0] Najma OG [facility] CPT-4: 85534 09/19/2014 ([id number]) OFFICE/OUTPATIENT VISIT EST Diagnosis: HYPERLIPIDEMIA NEC/NOS[ICD9: 272.4] Diagnosis: HYPERTENSION[ICD9: 401.9] Diagnosis: IMPAIRED FASTING GLUCOSE[ICD9: 790.21] Diagnosis: MALAISE AND FATIGUE[ICD9: 780.79] Najma OG [facility] CPT-4: 71812 08/15/2014 ([id number]) OFFICE/OUTPATIENT VISIT EST Diagnosis: HYPERLIPIDEMIA NEC/NOS[ICD9: 272.4] Diagnosis: HYPERTENSION[ICD9: 401.9] Diagnosis: IMPAIRED FASTING GLUCOSE[ICD9: 790.21] Najma LONG [facility] CPT-4: 99474 12/14/2013 ([id number]) OFFICE/OUTPATIENT VISIT EST Diagnosis: Post herpetic neuralgia[ICD9: 053.19] Najma OG [facility] CPT-4: 80163 10/17/2013 OFFICE/OUTPATIENT VISIT EST Diagnosis: Shingles[ICD9: 053.9] Diagnosis: Post herpetic neuralgia[ICD9: 053.19] Jeanie Briceño CLAUDE OG [facility] CPT-4: 74551 09/23/2013 ([id number]) OFFICE/OUTPATIENT VISIT EST Diagnosis: HYPERTENSION[ICD9: 401.9] Diagnosis: HYPERLIPIDEMIA NEC/NOS[ICD9: 272.4] Diagnosis: IMPAIRED FASTING GLUCOSE[ICD9: 790.21] Najma LONG [facility]Trendy [facility] CPT-4: 51574 06/20/2013 ([id number]) OFFICE/OUTPATIENT VISIT EST Diagnosis: HYPERLIPIDEMIA NEC/NOS[ICD9: 272.4] Diagnosis: MALAISE AND FATIGUE[ICD9: 780.79] Diagnosis: ROUTINE MEDICAL EXAM[ICD9: V70.0] Diagnosis: HYPERTENSION[ICD9: 401.9] Diagnosis: IMPAIRED FASTING GLUCOSE[ICD9: 790.21] Najma OG [facility] CPT-4: 88538 06/08/2013 ([id number]) OFFICE/OUTPATIENT VISIT EST Diagnosis: HYPERLIPIDEMIA NEC/NOS[ICD9: 272.4] Diagnosis: HYPERTENSION[ICD9: 401.9] Diagnosis: IMPAIRED FASTING GLUCOSE[ICD9: 790.21] Diagnosis: DIARRHEA[ICD9: 787.91] Najma Stallings [facility]rend[facility] CPT-4: 33293 11/25/2012 ([id number]) OFFICE/OUTPATIENT VISIT EST Diagnosis: HYPERLIPIDEMIA NEC/NOS[ICD9: 272.4] Diagnosis: HYPERTENSION[ICD9: 401.9] Diagnosis: IMPAIRED FASTING GLUCOSE[ICD9: 790.21] Diagnosis: MALAISE AND FATIGUE[ICD9: 780.79] Najma OG [facility] CPT-4: 85980 11/11/2012 OFFICE/OUTPATIENT VISIT EST Diagnosis: Fungal dermatitis[ICD9: 111.9] Diagnosis: Dry skin dermatitis[ICD9: 692.89] Henrietta Lubin FILI OG [employer] [facility] CPT-4: 34363 08/27/2012 ([id number]) OFFICE/OUTPATIENT VISIT EST Diagnosis: HYPERTENSION[ICD9: 401.9] Diagnosis: HYPERLIPIDEMIA NEC/NOS[ICD9: 272.4] Najma OG [facility] CPT-4: 92691 05/11/2012 ([id number]) OFFICE/OUTPATIENT VISIT EST Diagnosis: HYPERLIPIDEMIA NEC/NOS[ICD9: 272.4] Diagnosis: HYPERTENSION[ICD9: 401.9] Diagnosis: ROUTINE MEDICAL EXAM[ICD9: V70.0] Najma OG [facility] CPT-4: 91334 05/04/2012 ([id number]) OFFICE/OUTPATIENT VISIT EST Diagnosis: HYPERTENSION[ICD9: 401.9] Diagnosis: HYPERLIPIDEMIA NEC/NOS[ICD9: 272.4] Diagnosis: IMPAIRED FASTING GLUCOSE[ICD9: 790.21] Najmaanaid [employer] CPT-4: 54919 12/11/2011 ([id number]) OFFICE/OUTPATIENT VISIT EST Diagnosis: HYPERLIPIDEMIA NEC/NOS[ICD9: 272.4] Diagnosis: HYPERTENSION[ICD9: 401.9] Diagnosis: IMPAIRED FASTING GLUCOSE[ICD9: 790.21] Najma KATHLEENNDER [facility] CPT-4: 43570 10/29/2011 ([id number]) OFFICE/OUTPATIENT VISIT EST Diagnosis: HYPERTENSION[ICD9: 401.9] Najma KATHLEEN NDER DO [facility] CPT-4: 64355 08/14/2011 ([id number]) OFFICE/OUTPATIENT VISIT EST Diagnosis: HYPERTENSION[ICD9: 401.9] Diagnosis: IMPAIRED FASTING GLUCOSE[ICD9: 790.21] Najma KATHLEENNDER [facility] CPT-4: 82504 07/29/2011 ([id number]) OFFICE/OUTPATIENT VISIT EST Diagnosis: HYPERTENSION[ICD9: 401.9] Najma KATHLEEN NDER DO [facility] CPT-4: 13997 07/23/2011 ([id number]) OFFICE/OUTPATIENT VISIT EST Diagnosis: HYPERTENSION[ICD9: 401.9] Najma KATHLEEN NDER DO [facility] CPT-4: 69759 06/24/2011 OFFICE/OUTPATIENT VISIT EST Diagnosis: HYPERTENSION[ICD9: 401.9] Najma KATHLEEN NDER DO [facility] CPT-4: 14844 05/20/2011 OFFICE/OUTPATIENT VISIT EST Diagnosis: HYPERTENSION[ICD9: 401.9] Najma KATHLEEN NDER DO [facility] CPT-4: 79163 04/15/2011 OFFICE/OUTPATIENT VISIT EST Diagnosis: HYPERLIPIDEMIA NEC/NOS[ICD9: 272.4] Diagnosis: IMPAIRED FASTING GLUCOSE[ICD9: 790.21] Najma CHAPMAN SMatilde KATHLEENNDER DO [facility] CPT-4: 58755 03/18/2011 ([id number]) OFFICE/OUTPATIENT VISIT EST Najma KATHLEENNDER [facility] CPT-4: 13672 07/30/2010 ([id number]) PREV VISIT, EST, AGE 40-64 Najma KATHLEENNDER [facility]-4: 89534 04/24/2010 Plan of Care Planned Activity Notes [...] : E11.65 06/02/2019 Appointment: Najma Og WPtel: [address] [place] [address] FOLLOW UP 06/02/2019 Appointment: Najma Og WPtel: [address] [place] [address] [place] LAB 05/24/2019 Visit Diagnosis Plan: Type [...] : I10 01/31/2019 Appointment: Najma Og WPtel: [address] [place], [place] [phone] US FOLLOW UP 01/31/2019 Appointment: Najma Og WPtel: [address] [place], [place] [phone] US LAB 01/26/2019 Appointment: Najma Og WPtel: [address] [place], [place] [phone] US LAB 09/30/2018 Visit Diagnosis Plan: Essential [...] : N19 08/19/2018 Appointment: Najma Og WPtel: [address] [place] [address] FOLLOW UP 08/19/2018 Appointment: Najma Og WPtel: [address] [place] [address] US LAB 08/16/2018 Visit Diagnosis Plan: Type [...] : I10 05/10/2018 Appointment: Najma Og WPtel: [address] [place] [address] US FOLLOW UP 05/10/2018 Patient Education: Low Back Pain Exercises: Illustration Completed 05/10/2018 Patient Education: Low Back Pain Exercises Completed 05/10/2018 Appointment: Najma Og WPtel: [address] [place] [address] US LAB 05/05/2018 Visit Diagnosis Plan: Type [...] : E78.2 01/19/2018 Appointment: Najma Og WPtel: [address] [place], [place] [phone] FOLLOW UP 01/19/2018 Patient Education: Patient Medication Summary Completed 01/19/2018 Appointment: Najma Og WPtel: [address] [place], [place] [phone] LAB 01/13/2018 Patient Education: Patient Medication Summary [...] : E78.2 10/15/2017 Appointment: Najma Og WPtel: [address] [place], [place] [phone] FOLLOW UP 10/15/2017 Patient Education: Patient Medication Summary Completed 10/15/2017 Appointment: Najma Og WPtel: [address] [place], [place] [phone] US LAB 10/06/2017 Patient Education: Patient Medication Summary Completed 10/06/2017 Visit Diagnosis Plan: Actinic keratosis Discussion: Cr yotherapy as above ICD-9 : 702.0 ICD-10 : L57.0 04/23/2017 Appointment: Najma Og WPtel: [address] [place], [place] [phone] OFFICE SURGERY 04/23/2017 Patient Education: Patient Medication [...] 250.00 ICD-10 : E11.9 03/11/2017 Appointment: Najma Ogtel: [address] [place], [place] [phone] US FOLLOW UP 03/11/2017 Patient Education: Patient Medication Summary Completed 03/11/2017 Appointment: Najma Og WPtel: [address] [place], [place] [phone] [place] LAB 03/05/2017 Patient Education: Patient Medication [...] 272.2 ICD-10 : E78.2 07/09/2016 Appointment: Najma Ogtel: [address] [place], [place] [phone] 07/08 lm ~sl 07/09 confirmed~sl FOLLOW UP 08/2016 Patient Education: Patient Medication Summary Completed 07/09/2016 Appointment: Najma Og WPtel: [address] [place], [place] [phone] LAB 06/16/2016 Patient Education: Patient Medication Summary Completed 06/16/2016 Visit Plan: Lab discussed Pura lópez fátima Lifestyle change for 3mos then check CMP, HbA1C in 3mos Has had flu and pneumonia shot 03/10/2016 Appointment: Najma Og WPtel: [facility] 03/06 confirmed `sl FOLLOW UP 03/10/2016 Patient Education: Patient Medication Summary Completed 03/10/2016 Appointment: Najma Og WPtel: [address] [place], [place] [phone] LAB 03/06/2016 Patient Education: Patient Medication Summary Completed 03/06/2016 Referral: Donavon Keller WPtel: [facility] [employer] [id number] [place] Referral Completed 10/22/2015 Visit Plan: Tick bite area looks much be tter Continue current rxs and close monitoring Follow up if any new symptoms or worsening appearance 09/12/2015 Appointment: Barbara Brower [address] [place], [place] [phone] 09/10 confirmed~sl FOLLOW UP 09/12/2015 Patient Education: Patient Medication Summary Completed 09/12/2015 Visit Plan: Cover as above 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 topical steroids to calm down the inflammation(suspect most of redness is due to histamine response vs infection) Monitor closely Follow up in 2 days to recheck 09/10/2015 Appointment: Barbara Brower [address] [place], [place] [phone] ACUTE ILLNESS 09/10/2015 Patient Education: [...] consider shingles vaccine 09/06/2015 Appointment: Barbara Brower [address] [place], [place] [phone] FOLLOW UP 09/06/2015 Patient Education: Patient Medication Summary Completed 09/06/2015 Care Plan: Referral Order SNOMED-CT : 30 [id number] Pending 09/06/2015 Appointment: Najma Og WPtel: [address] [place], [place] [phone] US LAB 08/31/2015 Patient Education: Patient Medication [...] to UC/ER. 06/29/2015 Appointment: Henrietta Lubin WPtel: [address] [place] [address] ACUTE ILLNESS 06/29/2015 Patient Education: Patient Medication Summary Completed 06/29/2015 Visit Plan: Lab discussed Will keep meds the same Discussed diet/exercise at length Cryotherapy as above to AKs of arms Flu and Prevnar 13 given Trial of revatio per patient request for ED--warned of no nitrates Recheck 4mos 01/17/2015 Appointment: Najma Og WPtel: [address] [place], [place] [phone] 01/16 confirmed~sl FOLLOW UP 01/17/2015 Patient Education: Patient Medication Summary Completed 01/17/2015 Appointment: Najma Og WPtel: [address] [place], [place] [phone] US LAB 01/12/2015 Patient Education: Patient Medication Summary Completed 01/12/2015 Visit Plan: Lab discussed Start accuchec ks daily Cryotherapy as above 09/19/2014 Appointment: Najma Og WPtel: [address] [place], [place] [phone] 09/18 confirmed -mf FOLLOW UP 09/19/2014 Patient Education: Patient Medication Summary Completed 09/19/2014 Appointment: Najma Og WPtel: [address] [place] [address] US LAB 08/15/2014 Patient Education: Patient Medication Summary Completed 08/15/2014 Appointment: Najma Og WPtel: [address] [place] [address] ACUTE ILLNESS 12/14/2013 Patient Education: Patient Medication Summary Completed 12/14/2013 Visit Plan: Patient using tylenol prn pa in Discussed possible shingles shot for booster in 9-12mos 10/17/2013 Appointment: Najma Og WPtel: [address] [place] [address] FOLLOW UP 10/17/2013 Patient Education: Patient Medication Summary Completed 10/17/2013 Appointment: Jeanie Briceño WPtel: [address] [place] [address] ACUTE ILLNESS 09/23/2013 Patient Education: Patient Medication Summary Completed 09/23/2013 Appointment: Najma Og WPtel: [address] [place] [address] BP CHECK 07/22/2013 Patient Education: Patient Medication Summary Completed 07/22/2013 Visit Plan: Lab discussed Discussed swit arun amlodopine to beta slim to see if helps with tremor BP check in 1mo 06/20/2013 Appointment: Najma Og WPtel: [address] [place] [address] 06/17 no answer FOLLOW UP 06/20/2013 Patient Education: Patient Medication Summary Completed 06/20/2013 Appointment: Najma Og WPtel: [address] [place] [address] LAB 06/08/2013 Patient Education: Patient Medication Summary Completed 06/08/2013 Visit Plan: BRAT diet and yogurt and gat orade Lab discussed Continue current meds Spot checks on BS 11/25/2012 Appointment: Najma Og WPtel: [address] [place], [place] [id number] 11/24 FOLLOW UP 11/25/2012 Patient Education: Patient Medication Summary Completed 11/25/2012 Appointment: Najma Og WPtel: [address] [place], [place] [id number] [place] LAB 11/11/2012 Patient Education: Patient Medication Summary Completed 11/11/2012 Appointment: Henrietta Lubin WPtel: [address] [place], [place] [id number] WORK IN 08/27/2012 Patient Education: Patient Medication Summary Completed 08/27/2012 Visit Plan: Pt going to get new home BP moniter Continue crestor and restart fish oil and will check fasting lab in 6mos Lab results discussed 05/11/2012 Appointment: Najma Og WPtel: [address] [place], [place] [id number] 05/10 FOLLOW UP 05/11/2012 Patient Education: Patient Medication Summary Completed 05/11/2012 Appointment: Najma Og WPtel: [address] [place], [place] [id number] LAB 05/04/2012 Patient Education: Patient Medication Summary Completed 05/04/2012 Visit Plan: 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 and forehead 03/02/2012 Appointment: Najma Og WPtel: [address] [place], [place] [id number] 03/01 OFFICE SURGERY 03/02/2012 Patient Education: Patient Medication Summary Completed 03/02/2012 Visit Plan: Labs discussed--recheck lab end of Nov/mar Continue current meds and continue to moniter BS daily and BP 1-2 times a week Plan on cryotherapy this fall so can wear longsleeves after procedure See urology 12/11/2011 Appointment: Najma Og WPtel: [address] [place], [place] [id number] FOLLOW UP 12/11/2011 Patient Education: Patient Medication Summary Completed 12/11/2011 Appointment: Najma Og WPtel: [address] [place], [place] [id number] LAB 10/29/2011 Patient Education: Patient Medication Summary Completed 10/29/2011 Appointment: Najma Og WPtel: [address] [place] [address] BP CHECK 08/14/2011 Patient Education: Patient Medication Summary Completed 08/14/2011 Appointment: Najma Og WPtel: [address] [place] [address] ACUTE ILLNESS 07/29/2011 Patient Education: Patient Medication Summary Completed 07/29/2011 Appointment: Najma Og WPtel: [address] [place] [address] BP CHECK 07/23/2011 Patient Education: Patient Medication Summary Completed 07/23/2011 Appointment: Najma Og WPtel: [address] [place] [address] BP CHECK 06/24/2011 Patient Education: Patient Medication Summary Completed 06/24/2011 Appointment: Najma Ogtel: [address] [place] [address] BP CHECK 05/20/2011 Patient Education: Patient Medication Summary Completed 05/20/2011 Appointment: Najma Og WPtel: [address] [place] [address] BP CHECK 04/29/2011 Patient Education: Patient Medication Summary Completed 04/29/2011 Appointment: Najma Ogtel: [address] [place] [address] BP CHECK 04/15/2011 Patient Education: Patient Medication Summary Completed 04/15/2011 Visit Plan: Continue current meds Add fi sh oil 1gm daily Glucometer given to use for accuchecks prn 03/18/2011 Appointment: Najma Ogtel: [address] [place] [id number] [place] FOLLOW UP 03/18/2011 Patient Education: Patient Medication Summary Completed 03/18/2011 Appointment: Najma Og WPtel: [address] [place] [phone] [place] LAB 03/14/2011 Patient Education: Patient Medication Summary Completed 03/14/2011 Appointment: Najma Og WPtel: [address] [place] [phone] [place] LAB 11/11/2010 Appointment: Najma Og WPtel: [address] [place] [phone] [place] UA 11/11/2010 Patient Education: Patient Medication Summary Completed 11/11/2010 Appointment: Najma Og WPtel: [address] [place], [place] [phone] [place] LAB 10/29/2010 Patient Education: Patient Medication Summary Completed 10/29/2010 Appointment: Najma Og WPtel: [address] [place], [place] [phone] [place] FOLLOW UP 07/30/2010 Patient Education: Patient Medication Summary Completed 07/30/2010 Appointment: Najma Og WPtel: [address] [place], [place] [phone] [place] LAB 07/23/2010 Patient Education: Patient Medication Summary Completed 07/23/2010 Appointment: Najma Og WPtel: [address] [place], [place] [phone] [place] LAB 04/26/2010 Patient Education: Patient Medication Summary Completed 04/26/2010 Visit Plan: Add PSA to lab Restart Crest or at 10mg daily Trial of Wellbutrin to aid in smoking cessation Check Lipids and LFTs in 3mos 04/24/2010 Appointment: Najma Og WPtel: [address] [place], [place] [phone] [place] FOLLOW UP 04/24/2010 Patient Education: Patient Medication Summary Completed 04/24/2010 Appointment: Najma Og WPtel: [address] [id number] [place] LAB 04/19/2010 Patient Education: Patient Medication Summary Completed 04/19/2010 Referral: Donavon Keller WPtel: [address] [id number] [place] Referral Completed Instructions Comment . Lab [...]
--- OUTSIDE RECORDS SUMMARY | 2019-10-14 22:47 | XMS REPORT | CCD ---
Author Author Inocente Og D.O. 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 PP Unavailable CCM Unavailable Summary Purpose Interface Exchange Insurance Providers Payer name Policy type / Coverage type Covered constitution party ID Effective Begin Date Effective End Date [employer]RO[employer] MEDICARE Medicare Part B [id number] Unknown [facility] Medicare Part B [id number] Un known Family history Father Diagnosis Age At Onset Diabetes mellitus Type 2 Unknown Myocardial infarction Unknown Brother Diagnosis Age At Onset Diabetes mellitus Type 2 Unknown Mother Diagnosis Age At Onset Osteoarthritis Unknown Cerebrovascular disease Unknown Social History Social History Element Codes Description Effective Dates Tobacco history SNOMED CT: 036887954 Never smoker 12/21/2014 Marital status Unknown 07/30/2010 [...] Start Date Stop Date Status Fill Instructions Vitamin D3 25 mcg (1,000 unit) capsule RxNorm: 884228 1 Capsule(s) Oral two times a day 06/02/2019 No Stop Date Active turmeric 400 mg capsule RxNorm: 1 Capsule(s) Oral QD 06/02/2019 No Stop Date Active Fish Oil 120 mg-180 mg-500 mg capsule RxNorm: 2 Capsule(s) Ora l QD 06/02/2019 No Stop Date Active 16.2 mg-0.1037 mg-0.0194 mg tablet RxNorm: 1740002 1 Tablet(s) Oral four times a day as needed abdominal pain/diarrhea 06/02/2019 No Stop D ate Active fenofibrate micronized 134 mg capsule RxNorm: 089583 1 Capsule(s) Oral QD for triglycerides 04/14/2019 07/13/2019 Active amlodipine 5 mg tablet RxNorm: 836916 TAKE 1 TABLET BY MOUTH ON CE DAILY 03/22/2019 06/19/2019 Active metformin ER 500 mg tablet,extended release 24 hr RxNorm: 86 0975 TAKE 1 TABLET BY MOUTH ONCE DAILY 03/15/2019 No Stop Date Active propranolol ER 80 mg capsule,24 hr,extended release RxNorm: 090590 TAKE 1 CAPSULE BY MOUTH ONCE DAILY 03/15/2019 No Stop Date Active amlodipine 5 mg tablet RxNorm: 997514 1 Tablet(s) PO QD 12/27/2018 Inactive fenofibrate micronized 134 mg capsule RxNorm: 689258 TA KE 1 CAPSULE BY MOUTH ONCE DAILY FOR TRIGLYCERIDES 10/11/2018 04/13/2019 Inactive amlodipine 5 mg tablet RxNorm: 905192 1 Tablet(s) PO QD 09/30/2018 Inactive metformin ER 500 mg tablet,extended release 24 hr RxNorm: 86 0975 TAKE 1 TABLET BY MOUTH ONCE DAILY 09/21/2018 03/14/2019 Inactive propranolol ER 80 mg capsule,24 hr,extended release RxNorm: 040757 TAKE 1 CAPSULE BY MOUTH ONCE DAILY 09/21/2018 03/14/2019 Inactive amlodipine 5 mg tablet RxNorm: 044776 1 Tablet(s) PO QD 08/25/2018 Inactive amlodipine 5 mg tablet RxNorm: 654482 1 Tablet(s) PO QD 08/25/2018 Inactive lisinopril 40 mg tablet RxNorm: 051649 TAKE 1 TABLET BY MOUTH O NCE DAILY 07/21/2018 08/24/2018 Inactive fenofibrate micronized 134 mg capsule RxNorm: 616517 TA KE 1 CAPSULE BY MOUTH ONCE DAILY FOR TRIGLYCERIDES 07/12/2018 10/10/2018 Inactive propranolol ER 80 mg capsule,24 hr,extended release RxNorm: 091321 TAKE 1 CAPSULE BY MOUTH ONCE DAILY 06/21/2018 09/20/2018 Inactive lisinopril 40 mg tablet RxNorm: 924919 TAKE 1 TABLET BY MOUTH O NCE DAILY 04/26/2018 07/20/2018 Inactive metformin ER 500 mg tablet,extended release 24 hr RxNorm: 767005 1 Tablet(s) QD 03/31/2018 09/20/2018 Inactive lisinopril 40 mg tablet RxNorm: 915942 TAKE 1 TABLET BY MOUTH O NCE DAILY 01/28/2018 04/25/2018 Inactive Vitamin D3 5,000 unit tablet RxNorm: 234160 1 Tablet(s) PO QD 01/1908/18/2018 Inactive fenofibrate micronized 134 mg capsule RxNorm: 412134 1 Capsule(s) PO QD for triglycerides 01/19/2018 07/11/2018 Inactive metformin ER 500 mg tablet,extended release 24 hr RxNorm: 828697 1 Tablet(s) QD 12/31/2017 03/30/2018 Inactive metformin ER 500 mg tablet,extended release 24 hr RxNorm: 224700 Tablet(s) 12/30/2017 12/30/2017 Inactive propranolol ER 80 mg capsule,24 hr,extended release RxNorm: 946022 1 Capsule(s) PO QD 12/17/2017 06/14/2018 Inactive metformin ER 500 mg tablet,extended release 24 hr RxNorm: 86 0975 1 Tablet(s) PO QD DUE FOR LABS AND APPT 12/02/2017 12/30/2017 Inactive Crestor 10 mg tablet RxNorm: 868398 TAKE ONE TABLET BY MOUTH ON CE DAILY 11/01/2017 01/18/2018 Inactive lisinopril 40 mg tablet RxNorm: 966590 TAKE ONE TABLET BY MOUTH ONCE DAILY [...] ER 80 mg capsule,24 hr,extended release RxNorm: 379445 1 Capsule(s) PO QD DUE FOR APPT 09/08/2017 12/17/2017 Inactive Crestor 10 mg tablet RxNorm: 817967 1 Tablet(s) PO QD T CHELSI ONE TABLET BY MOUTH DAILY 03/11/2017 09/06/2017 Inactive propranolol ER 80 mg capsule,24 hr,extended release RxNorm: 921835 1 Capsule(s) PO QD TAKE ONE CAPSULE BY MOUTH DAILY - REPLACES AMLODOPINE 03/11/2017 09/08/2017 Inactive metformin ER 500 mg tablet,extended release 24 hr RxNorm: 86 0975 1 Tablet(s) PO QD 03/11/2017 09/08/2017 Inactive lisinopril 40 mg tablet RxNorm: 589434 1 Tablet(s) PO QD 03/11/2017 0 09/06/2017 Inactive lisinopril 40 mg tablet RxNorm: 467666 1 Tablet(s) PO QD 02/16/2017 1 05/11/2016 Inactive metformin ER 500 mg tablet,extended release 24 hr RxNorm: 86 0975 1 Tablet(s) PO QD Due for labs and follow up before further refills 02/16/2017 017 Inactive propranolol ER 80 mg capsule,24 hr,extended release RxNorm: 293036 Capsule(s) TAKE ONE CAPSULE BY MOUTH DAILY - REPLACES AMLODOPINE 11/19/20162016 Inactive lisinopril 40 mg tablet RxNorm: 080952 1 Tablet(s) PO QD 11/17/2016 1 04/18/2016 Inactive metformin ER 500 mg tablet,extended release 24 hr RxNorm: 86 0975 1 Tablet(s) PO QD 11/17/2016 02/16/2017 Inactive lisinopril 40 mg tablet RxNorm: 988042 1 Tablet(s) PO Q D TAKE ONE TABLET BY MOUTH DAILY 08/19/2016 11/17/2016 Inactive metformin ER 500 mg tablet,extended release 24 hr RxNorm: 86 0975 Tablet(s) TAKE ONE TABLET BY MOUTH DAILY 08/19/2016 11/16/2016 Inactive propranolol ER 80 mg capsule,24 hr,extended release RxNorm: 232093 Capsule(s) TAKE ONE CAPSULE BY MOUTH DAILY - REPLACES AMLODOPINE 08/19/20162016 Inactive Crestor 10 mg tablet RxNorm: 474597 TAKE ONE TABLET BY MOUTH DAILY 06/16/2016 03/10/2017 Inactive lisinopril 40 mg tablet RxNorm: 022062 1 Tablet(s) PO Q D TAKE ONE TABLET BY MOUTH DAILY 05/23/2016 08/18/2016 Inactive metformin ER 500 mg tablet,extended release 24 hr RxNorm: 86 0975 TAKE ONE TABLET BY MOUTH DAILY 05/23/2016 08/19/2016 Inactive propranolol ER 80 mg capsule,24 hr,extended release RxNorm: 637721 TAKE ONE CAPSULE BY MOUTH DAILY - REPLACES AMLODOPINE 05/23/2016 08/19/[address] [place] [address] Crestor 10 mg tablet RxNorm: 194804 TAKE ONE TABLET BY MOUTH DAILY 03/31/2016 06/15/2016 Inactive metformin ER 500 mg tablet,extended release 24 hr RxNorm: 86 0975 TAKE ONE TABLET BY MOUTH DAILY 02/19/2016 05/22/2016 Inactive propranolol ER 80 mg capsule,24 hr,extended release RxNorm: 470208 TAKE ONE CAPSULE BY MOUTH DAILY - REPLACES AMLODOPINE 11/23/2015 05/20/2016 [place] [address] metformin ER 500 mg tablet,extended release 24 hr RxNorm: 86 0975 TAKE ONE TABLET BY MOUTH DAILY 11/08/2015 02/05/2016 Inactive Bactroban Nasal 2 % ointment RxNorm: 160548 Apply topic ally to affected area twice daily 09/10/2015 03/09/2016 Inactive Vibramycin 100 mg capsule RxNorm: 702036 1 Capsule(s) PO BID 201509/23/2015 Inactive lisinopril 40 mg tablet RxNorm: 515900 1 Tablet(s) PO Q D TAKE ONE TABLET BY MOUTH DAILY 08/27/2015 02/22/2016 Inactive metformin ER 500 mg tablet,extended release 24 hr RxNorm: 86 0975 TAKE ONE TABLET BY MOUTH DAILY 08/06/2015 11/03/2015 Inactive Levsin/SL 0.125 mg sublingual tablet RxNorm: 7287671 1 T ablet(s) SL Q4H as needed for stomach cramps 06/29/2015 07/03/2015 Inactive lisinopril 40 mg tablet RxNorm: 706695 Tablet(s) TAKE ONE TABLE T BY MOUTH DAILY 06/07/2015 08/26/2015 Inactive propranolol ER 80 mg capsule,24 hr,extended release RxNorm: 164167 TAKE ONE CAPSULE BY MOUTH DAILY - REPLACES AMLODOPINE 05/30/2015 11/22/[address] [place] [address] metformin ER 500 mg tablet,extended release 24 hr RxNorm: 86 0975 1 Tablet(s) PO QD 05/10/2015 08/05/2015 Inactive Crestor 10 mg tablet RxNorm: 870525 TAKE ONE TABLET BY MOUTH DAILY 04/18/2015 10/14/2015 Inactive metformin ER 500 mg tablet,extended release 24 hr RxNorm: 86 0975 TAKE ONE TABLET BY MOUTH DAILY 02/07/2015 05/10/2015 Inactive sildenafil 20 mg tablet RxNorm: 074557 1 Tablet(s) PO QD 01/17/2015 1 04/17/2014 Inactive propranolol ER 80 mg capsule,24 hr,extended release RxNorm: 352285 1 Capsule(s) PO QD replaces amlodopine 11/28/2014 05/26/2015 Inactive [[facility] -- BIN:[id number], PCN: [id number], Group: [facility], ID# [id number], Process claim through [employer], for questions: . THIS IS NOT INSURANCE.] lisinopril 40 mg tablet RxNorm: 784671 TAKE ONE TABLET BY MOUTH DAILY 11/16/2014 06/07/2015 Inactive lisinopril 40 mg tablet RxNorm: 391115 1 Tablet(s) PO QD 08/21/2014 0 11/15/2014 Inactive [AttnRPh: Saving apply/adjudicate RxGRP: [id number] RxBIN:[id number] RxPCN: ID#:[id number]] lisinopril 40 mg tablet RxNorm: 748587 1 Tablet(s) PO Q D NEEDS SEEN FOR APPOINTMENT 07/14/2014 08/21/2014 Inactive [AttnRPh: Saving apply/adjudicate RxGRP:SG20 RxBIN:[id number] RxPCN: ID#:[id number]] Crestor 10 mg tablet RxNorm: 190136 TAKE ONE TABLET BY MOUTH EV 07/06/2014 01/01/2015 Inactive metformin ER 500 mg tablet,extended release 24 hr RxNorm: 86 0975 1 Tablet(s) QD TAKE ONE TABLET BY MOUTH ONCE A DAY 06/09/2014 12/05/2014 Inactive propranolol ER 80 mg capsule,24 hr,extended release RxNorm: 617451 1 Capsule(s) PO QD replaces amlodopine 06/05/2014 11/28/2014 Inactive [[facility] -- BIN:119588, PCN: [id number], Group: [id number], ID# [id number], Process claim through [employer], for questions: . THIS IS NOT INSURANCE.] propranolol ER 80 mg capsule,24 hr,extended release RxNorm: 131491 1 Capsule(s) PO QD replaces amlodopine 03/07/2014 06/05/2014 Inactive [[facility] -- BIN:237003, PCN: [id number], Group: [id number], ID# [id number], Process claim through [employer], for questions: . THIS IS NOT INSURANCE.] metformin ER 500 mg tablet,extended release 24 hr RxNorm: 86 0975 TAKE ONE TABLET BY MOUTH ONCE A DAY 12/15/2013 06/09/2014 Inactive propranolol ER 80 mg capsule,24 hr,extended release RxNorm: 089799 1 Capsule(s) PO QD replaces amlodopine 12/09/2013 03/07/2014 Inactive [[facility] -- BIN:665540, PCN: [id number], Group: [id number], ID# [id number], Process claim through [employer], for questions: . THIS IS NOT INSURANCE.] acyclovir 800 mg tablet RxNorm: 400542 1 Tablet(s) PO QID 09/23/2013 09/29/2013 Inactive gabapentin 300 mg capsule RxNorm: 597001 1 Capsule(s) PO BID 201310/07/2013 Inactive metformin ER 500 mg tablet,extended release 24 hr RxNorm: 86 0975 1 Tablet(s) PO QD 09/19/2013 12/14/2013 Inactive propranolol ER 80 mg capsule,24 hr,extended release RxNorm: 581986 1 Capsule(s) PO QD replaces amlodopine 09/15/2013 12/09/2013 Inactive metformin ER 500 mg 24 hr tablet,extended release RxNorm: 86 0975 1 Tablet(s) PO QD 09/15/2013 09/18/2013 Inactive lisinopril 40 mg tablet RxNorm: 973279 1 Tablet(s) PO QD 07/19/2013 0 07/14/2014 Inactive Crestor 10 mg tablet RxNorm: 189194 Tablet(s) PO TAKE O NE TABLET BY MOUTH EVERY DAY 07/12/2013 07/05/2014 Inactive propranolol ER 80 mg capsule,24 hr,extended release RxNorm: 414490 1 Capsule(s) PO QD replaces amlodopine 06/20/2013 09/15/2013 Inactive triamcinolone acetonide 0.1 % topical ointment RxNorm: 39612 36 Application TOP BID 06/20/2013 06/26/2013 Inactive Crestor 10 mg tablet RxNorm: 370560 1 Tablet(s) PO QD 04/18/201310/2013 Inactive Viagra 100 mg tablet RxNorm: 701915 1 Tablet(s) PO as directed 01/0508/18/2018 Inactive TAKE ONE TABLET BY MOUTH DIRECTED Crestor 10 mg tablet RxNorm: 239851 1 Tablet(s) PO QD 01/17/201304/06 Inactive metformin ER 500 mg tablet,extended release 24 hr RxNorm: 86 0975 1 Tablet(s) PO QD TAKE ONE TABLET BY MOUTH EVERY DAY 12/23/2012 09/15/2013 Inactive triamcinolone acetonide 0.1 % topical ointment RxNorm: 02207 36 Application TOP BID 08/27/2012 09/02/2012 Inactive ketoconazole 2 % topical cream RxNorm: 142269 1 Application TOP QAM 08/27/2012 09/02/2012 Inactive lisinopril 40 mg tablet RxNorm: 879033 1 Tablet(s) PO QD 07/21/2012 0 07/15/2013 Inactive Crestor 10 mg tablet RxNorm: 471590 1 Tablet(s) PO QD 07/21/201210/04 Inactive amlodipine 10 mg tablet RxNorm: 276391 1 Tablet(s) PO QHS 07/21/2012 07/15/2013 Inactive metformin ER 500 mg tablet,extended release 24 hr RxNorm: 86 0977 Tablet(s) PO TAKE ONE TABLET BY MOUTH EVERY DAY 03/31/2012 12/22/2012 Inactive lisinopril 40 mg tablet RxNorm: 747374 1 Tablet(s) PO QD 07/29/2011 0 07/20/2012 Inactive amlodipine 10 mg tablet RxNorm: 286268 1 Tablet(s) PO QHS 07/29/2011 07/20/2012 Inactive amlodipine 10 mg Tab RxNorm: 366744 1 Tablet(s) PO QHS 07/29/2011 Inactive Viagra 100 mg tablet RxNorm: 177133 1 Tablet(s) PO as directed 07/0601/24/2013 Inactive TAKE ONE TABLET BY MOUTH DIRECTED Crestor 10 mg tablet RxNorm: 281441 1 Tablet(s) PO QD 07/29/201107/05 Inactive Norvasc 5 mg Tab RxNorm: 979311 1 Tablet(s) PO QD 07/16/2011 07/28/19 12 Inactive Norvasc 5 mg Tab RxNorm: 232164 1 Tablet(s) PO QD 06/26/2011 07/15/19 12 Inactive lisinopril 40 mg Tab RxNorm: 779770 1 Tablet(s) PO QD 05/13/201107/06 Inactive metformin ER 500 mg tablet,extended release 24 hr RxNorm: 86 0977 1 Tablet(s) PO QD 03/18/2011 07/28/2011 Inactive Crestor 10 mg Tab RxNorm: 759018 1 Tablet(s) PO QHS 01/27/20112011 Inactive metformin ER 500 mg 24 hr Tab RxNorm: 775582 1 Tablet(s) PO QD 11/0403/17/2011 Inactive Viagra 100 mg Tab RxNorm: 270921 Tablet(s) PO TAKE ON E TABLET BY MOUTH DIRECTED 08/26/2010 07/28/2011 Inactive metformin ER 500 mg 24 hr Tab RxNorm: 581240 1 Tablet(s) PO QD 07/0611/18/2010 Inactive Crestor 10 mg Tab RxNorm: 017541 1 Tablet(s) PO QHS 07/30/20102010 Inactive Crestor 10 mg Tab RxNorm: 288969 1 Tablet(s) PO QHS 05/20/20102010 Inactive Wellbutrin SR 150 mg Tab RxNorm: 158880 1 Tablet(s) PO QAM 04/24/19 11 07/22/2010 Inactive Multivitamin And Mineral tablet RxNorm: 1 Tablet(s) PO QD No Start Date Active FreeStyle Lite Strips RxNorm: 1 Unit Dose Miscel laneous AC & HS check blood sugar AC and HS No Start Date Active Co Q-10 200 mg capsule RxNorm: 729603 1 Capsule(s) PO QD No Start Date Active lancets RxNorm: 1 Milliliter(s) Miscellaneous AC & HS No Start Robert e Active Vitamin D3 4,000 unit capsule RxNorm: 3616795 1 Capsule(s) PO QD No Start Date 07/08/2016 Inactive Fish Oil 360 mg-1,200 mg capsule RxNorm: 851516 2 Capsule(s) PO QD No Start Date 01/30/2019 Inactive hydrocodone 5 mg-acetaminophen 325 mg tablet RxNorm: 652670 1 Tablet(s) PO Q4H as needed for severe pain No Start Date 12/30/2015 Inactive Xanax 0.25 mg tablet RxNorm: 912066 1/2 Tablet(s) PO PRN for se andrea stress No Start Date 07/08/2016 Inactive lisinopril 40 mg Tab RxNorm: 892619 1 Tablet(s) PO QD No Start Date 0 05/12/2011 Inactive Fish Oil 1,000 mg capsule RxNorm: 1 Capsule(s) PO QD No Start Date 09/18/2014 Inactive naproxen 500 mg Tab RxNorm: 045373 1 Tablet(s) PO BID No Start Date 0 07/28/2011 Inactive aspirin 81 mg tablet RxNorm: 161602 1 Tablet(s) PO QD No Start Date 0 05/09/2018 Inactive Crestor 10 mg Tab RxNorm: 595826 1 Tablet(s) PO QD No Start Date 07/06 Inactive Crestor 5 mg tablet RxNorm: 685419 1 Tablet(s) PO QD No Start Date Inactive Fish Oil Oral RxNorm: Oral No Start Date 09/18/2014 Inactive Viagra 100 mg Tab RxNorm: 188134 1 Tablet(s) PO as directed No Star [...] Date S vice Location GLYCOSYLATED HEMOGLOBIN TEST 94593 Hgb A1c 22623-4 6.7 % 0 05/24/2019 Unknown COMPREHENSIVE METABOLIC 56463 AST 21 U/L 2019 Unknown COMPREHENSIVE METABOLIC 30169 ALT 26 U/L 2019 Unknown COMPREHENSIVE METABOLIC 76795 BUN 14 mg/dL 2019 Unknown COMPREHENSIVE METABOLIC 42306 ALBUMIN 4.4 g/dL 2019 Unknown COMPREHENSIVE METABOLIC 51660 CHLORIDE 102 mmol/L 05/24 Unknown COMPREHENSIVE METABOLIC 97913 Bili Total 0.4 mg/dL 05/24 Unknown COMPREHENSIVE METABOLIC 78492 ALK PHOS 55 U/L 2019 Unknown COMPREHENSIVE METABOLIC 04783 SODIUM 139 mmol/L 05/24 Unknown COMPREHENSIVE METABOLIC 32379 CREATININE 1.28 mg/dL 05/07 Unknown COMPREHENSIVE METABOLIC 63407 CALCIUM 9.7 mg/dL 2019 Unknown COMPREHENSIVE METABOLIC 95775 POTASSIUM 4.7 mmol/L 05/24 Unknown COMPREHENSIVE METABOLIC 82221 Total Protein 6.8 g/dL Unknown COMPREHENSIVE METABOLIC 93423 Glucose 130 mg/dL 2019 Unknown COMPREHENSIVE METABOLIC 02776 Bicarbonate 29 mmol/L 05/07 Unknown COMPREHENSIVE METABOLIC 48258 AGAP 8 mmol/L 2019 Unknown MEAN GLUC 9897457 Calc Mean Gluc 146 mg/dL 05/24/2019 Unkn own GFR CALC 8015596 GFR Non Afr Amr 56 mL/min 05/24/2019 Unk nown GFR CALC [id number] GFR Afr Amr >60 mL/min 05/24/2019 Unknow n MEAN GLUC 9400767 Calc Mean Gluc 140 mg/dL 01/26/2019 Unkn own GLYCOSYLATED HEMOGLOBIN TEST 18834 Hgb A1c 97209-1 6.5 % 1 Unknown COMPREHENSIVE METABOLIC 58121 AST 17 U/L 2018 Unknown COMPREHENSIVE METABOLIC 23901 ALT 19 U/L 2018 Unknown COMPREHENSIVE METABOLIC 78529 BUN 19 mg/dL 2018 Unknown COMPREHENSIVE METABOLIC 29398 ALBUMIN 4.3 g/dL 2018 Unknown COMPREHENSIVE METABOLIC 19930 CHLORIDE 103 mmol/L 01/26 Unknown COMPREHENSIVE METABOLIC 26401 Bili Total 0.6 mg/dL 01/26 Unknown COMPREHENSIVE METABOLIC 91919 ALK PHOS 60 U/L 2018 Unknown COMPREHENSIVE METABOLIC 71637 SODIUM 140 mmol/L 01/26 Unknown COMPREHENSIVE METABOLIC 13167 CREATININE 1.21 mg/dL 01/05 Unknown COMPREHENSIVE METABOLIC 63678 CALCIUM 9.6 mg/dL 2018 Unknown COMPREHENSIVE METABOLIC 79978 POTASSIUM 4.5 mmol/L 01/26 Unknown COMPREHENSIVE METABOLIC 65948 Total Protein 6.7 g/dL Unknown COMPREHENSIVE METABOLIC 49127 Glucose 111 mg/dL 2018 Unknown COMPREHENSIVE METABOLIC 49649 Bicarbonate 28 mmol/L 01/05 Unknown COMPREHENSIVE METABOLIC 13294 AGAP 9 mmol/L 2018 Unknown COMPLETE BLOOD COUNT [id number] WBC 10.7 10e9/L 019 Unknown COMPLETE BLOOD COUNT 0588763 RBC 4.38 10e12/L 2018 Unknown COMPLETE BLOOD COUNT [id number] HEMOGLOBIN 13.7 g/dL 01/27/20 19 Unknown COMPLETE BLOOD COUNT 1367779 HEMATOCRIT 42.0 % 01/27/20 19 Unknown COMPLETE BLOOD COUNT 0906944 MCV 95.9 fL 9 Unknown COMPLETE BLOOD COUNT 6104346 MCH 31.3 pg 9 Unknown COMPLETE BLOOD COUNT 1623880 MCHC 32.6 g/dL 9 Unknown COMPLETE BLOOD COUNT 8135107 PLATELET COUNT 232 10e9/L Unknown COMPLETE BLOOD COUNT 6415457 Mean Plt Volume 11.4 fL Unknown COMPLETE BLOOD COUNT 2189997 Neut Auto 68.7 % 9 Unknown COMPLETE BLOOD COUNT [id number] Lymph Auto 21.2 % 01/27/20 19 Unknown COMPLETE BLOOD COUNT [id number] [place] Auto 8.1 % 9 Unknown COMPLETE BLOOD COUNT 0403759 RDW 14.1 % 9 Unknown COMPLETE BLOOD COUNT 3212972 Eos Auto 1.8 % 9 Unknown COMPLETE BLOOD COUNT 6561415 Baso Auto 0.2 % 9 Unknown COMPLETE BLOOD COUNT 6358756 Neutrophil Abs 7.35 10e9/L Unknown COMPLETE BLOOD COUNT [id number] Lymphocyte Abs 2.27 10e9/L Unknown COMPLETE BLOOD COUNT [id number] Monocyte Abs 0.87 10e9/L 01/05 Unknown COMPLETE BLOOD COUNT 9391950 Eosinophil Abs 0.19 10e9/L Unknown COMPLETE BLOOD COUNT [id number] RDW-SD 47.7 fL 9 Unknown COMPLETE BLOOD COUNT [id number] Basophil Abs 0.02 10e9/L 01/05 Unknown GFR CALC 7759782 GFR Non Afr Amr 59 mL/min 01/26/2019 Unk nown GFR CALC 9150070 GFR Afr Amr >60 mL/min 01/26/2019 Unknow n LIPID GROUP 18795 Cholesterol 215 mg/dL 01/26/2019 Unkno wn LIPID GROUP 37064 Triglyceride 221 mg/dL 01/26/2019 Unkn own LIPID GROUP 17664 HDL CHOLESTEROL 41 mg/dL 01/26/2019 U nknown LIPID GROUP 96230 Chol/HDL Ratio 5.24 ratio 01/26/2019 U nknown LIPID GROUP 52133 NON-HDL Chol 174 mg/dL 01/26/2019 Unkn own LIPID GROUP 41395 LDL Cholesterol 130 mg/dL 01/26/2019 [place] [address] Glucose 104 mg/dL 09/30 [place] [address] CREATININE 1.18 mg/dL [place] [address] BUN 19 mg/dL 09/30 [place] [address] SODIUM 139 mmol/L 09/05 [place] [address] POTASSIUM 4.1 mmol/L 09/05 [place] [address] CHLORIDE 105 mmol/L 09/05 [place] [address] Bicarbonate 26 mmol/[place] [address] AGAP 8 mmol/L 09/30 [place] [address] CALCIUM 9.3 mg/dL 09/30 Unknown GFR CALC 8668099 GFR Non Afr Amr >60 mL/min 09/30/2018 Un known GFR CALC 1891994 GFR Afr Amr >60 mL/min 09/30/2018 Unknow n MICROALBUMIN URINE RANDOM 13138 U Microalbumin <2.0 mg/L 08/19/2018 Unknown MICROALBUMIN URINE RANDOM 34122 U Creatinine 66 mg/dL 0 08/19/2018 Unknown MICROALBUMIN URINE RANDOM 92410 ALB/CR Ratio <3.0 mg/gCR 08/19/2018 Unknown COMPREHENSIVE METABOLIC 84179 AST 21 U/L 2018 Unknown COMPREHENSIVE METABOLIC 66716 ALT 20 U/L 2018 Unknown COMPREHENSIVE METABOLIC 11825 BUN 31 mg/dL 2018 Unknown COMPREHENSIVE METABOLIC 36820 ALBUMIN 4.4 g/dL 2018 Unknown COMPREHENSIVE METABOLIC 81359 CHLORIDE 105 mmol/L 08/16 Unknown COMPREHENSIVE METABOLIC 21943 Bili Total 0.5 mg/dL 08/16 Unknown COMPREHENSIVE METABOLIC 64249 ALK PHOS 40 U/L 2018 Unknown COMPREHENSIVE METABOLIC 96460 SODIUM 140 mmol/L 08/16 Unknown COMPREHENSIVE METABOLIC 22602 CREATININE 1.45 mg/dL 08/04 Unknown COMPREHENSIVE METABOLIC 81811 CALCIUM 9.8 mg/dL 2018 Unknown COMPREHENSIVE METABOLIC 87270 POTASSIUM 5.1 mmol/L 08/16 Unknown COMPREHENSIVE METABOLIC 66095 Total Protein 6.9 g/dL Unknown COMPREHENSIVE METABOLIC 70573 Glucose 110 mg/dL 2018 Unknown COMPREHENSIVE METABOLIC 41889 Bicarbonate 25 mmol/L 08/04 Unknown COMPREHENSIVE METABOLIC 87269 AGAP 10 mmol/L 2018 Unknown GFR CALC [id number] GFR Non Afr Amr 48 mL/min 08/16/2018 Unk nown GFR CALC 7044115 GFR Afr Amr 58 mL/min 08/16/2018 Unknown GLYCOSYLATED HEMOGLOBIN TEST 34556 Hgb A1c 41762-1 5.9 % 0 08/16/2018 Unknown LIPID GROUP 28962 Cholesterol 226 mg/dL 08/16/2018 Unkno wn LIPID GROUP 36360 Triglyceride 335 mg/dL 08/16/2018 Unkn own LIPID GROUP 39505 HDL CHOLESTEROL 32 mg/dL 08/16/2018 U nknown LIPID GROUP 28668 Chol/HDL Ratio 7.06 ratio 08/16/2018 U nknown LIPID GROUP 08500 NON-HDL Chol 194 mg/dL 08/16/2018 Unkn own LIPID GROUP 09589 LDL Cholesterol 127 mg/dL 08/16/2018 U nknown THYROID STIMULATING HORMONE 48849 TSH 2.475 uIU/mL 08/16/2018 Unknown COMPLETE BLOOD COUNT 5590468 WBC 7.5 10e9/L 08/17/19 19 Unknown COMPLETE BLOOD COUNT 5175535 RBC 4.09 10e12/L 2018 Unknown COMPLETE BLOOD COUNT 2462704 HEMOGLOBIN 12.9 g/dL 08/17/19 19 Unknown COMPLETE BLOOD COUNT 9892760 HEMATOCRIT 40.0 % 08/17/19 19 Unknown COMPLETE BLOOD COUNT 8471944 MCV 97.8 fL 9 Unknown COMPLETE BLOOD COUNT 6234992 MCH 31.5 pg 9 Unknown COMPLETE BLOOD COUNT 8849574 MCHC 32.3 g/dL 9 Unknown COMPLETE BLOOD COUNT 9076964 PLATELET COUNT 258 10e9/L Unknown COMPLETE BLOOD COUNT 5773043 Mean Plt Volume 11.4 fL Unknown COMPLETE BLOOD COUNT 1704350 Neut Auto 62.9 % 9 Unknown COMPLETE BLOOD COUNT 4916196 Lymph Auto 27.3 % 08/17/19 19 Unknown COMPLETE BLOOD COUNT 0585410 [place] Auto 8.2 % 9 Unknown COMPLETE BLOOD COUNT 4880802 RDW 13.3 % 9 Unknown COMPLETE BLOOD COUNT 3657862 Eos Auto 1.5 % 9 Unknown COMPLETE BLOOD COUNT 4438804 Baso Auto 0.1 % 9 Unknown COMPLETE BLOOD COUNT 6859430 Neutrophil Abs 4.72 10e9/L Unknown COMPLETE BLOOD COUNT 0560716 Lymphocyte Abs 2.05 10e9/L Unknown COMPLETE BLOOD COUNT [id number] Monocyte Abs 0.62 10e9/L 08/04 Unknown COMPLETE BLOOD COUNT 8400582 Eosinophil Abs 0.11 10e9/L Unknown COMPLETE BLOOD COUNT 5713177 RDW-SD 46.7 fL 9 Unknown COMPLETE BLOOD COUNT 7105129 Basophil Abs 0.01 10e9/L 08/04 Unknown MEAN GLUC 2654536 Calc Mean Gluc 123 mg/dL 08/16/2018 Unkn own LIPID GROUP 29487 Cholesterol 212 mg/dL 05/05/2018 Unkno wn LIP[facility] GROUP 86481 Triglyceride 271 mg/dL 05/05/2018 Unkn own [facility] 86065 HDL CHOLESTEROL 38 mg/dL 05/05/2018 U nknown LIP[facility] GROUP 06154 Chol/HDL Ratio 5.58 ratio 05/05/2018 U nknown LIPID GROUP 96623 NON-HDL Chol 174 mg/dL 05/05/2018 Unkn own L[facility] GROUP 66265 LDL Cholesterol 120 mg/dL 05/05/2018 U nknown GFR CALC [id number] GFR Non Afr Amr 49 mL/min 05/05/2018 Unk nown GFR CALC [id number] GFR Afr Amr 59 mL/min 05/05/2018 Unknown GLYCOSYLATED HEMOGLOBIN TEST 66724 Hgb A1c 04332-4 6.0 % 0 05/05/2018 Unknown MEAN GLUC [id number] Calc Mean Gluc 126 mg/dL 05/05/2018 Unkn own COMPREHENSIVE METABOLIC 07255 AST 18 U/L 2018 Unknown COMPREHENSIVE METABOLIC 04545 ALT 23 U/L 2018 Unknown COMPREHENSIVE METABOLIC 76809 BUN 30 mg/dL 2018 Unknown COMPREHENSIVE METABOLIC 65041 ALBUMIN 4.3 g/dL 2018 Unknown COMPREHENSIVE METABOLIC 88265 CHLORIDE 106 mmol/L 05/05 Unknown COMPREHENSIVE METABOLIC 03824 Bili Total 0.4 mg/dL 05/05 Unknown COMPREHENSIVE METABOLIC 98924 ALK PHOS 39 U/L 2018 Unknown COMPREHENSIVE METABOLIC 40324 SODIUM 139 mmol/L 05/05 Unknown COMPREHENSIVE METABOLIC 48813 CREATININE 1.44 mg/dL 04/08 Unknown COMPREHENSIVE METABOLIC 74702 CALCIUM 9.6 mg/dL 2018 Unknown COMPREHENSIVE METABOLIC 03962 POTASSIUM 4.7 mmol/L 05/05 Unknown COMPREHENSIVE METABOLIC 03913 Total Protein 6.6 g/dL Unknown COMPREHENSIVE METABOLIC 27975 Glucose 112 mg/dL 2018 Unknown COMPREHENSIVE METABOLIC 64573 Bicarbonate 28 mmol/L 04/08 Unknown COMPREHENSIVE METABOLIC 15363 AGAP 5 mmol/L 2018 Unknown THYROID STIMULATING HORMONE 32033 TSH 3.725 uIU/mL 05/05/2018 Unknown COMPLETE BLOOD COUNT [id number] WBC 8.2 10e9/L 05/05/19 19 Unknown COMPLETE BLOOD COUNT [id number] RBC 4.02 10e12/L 2018 Unknown COMPLETE BLOOD COUNT [id number] HEMOGLOBIN 12.7 g/dL 05/05/19 19 Unknown COMPLETE BLOOD COUNT 8221644 HEMATOCRIT 39.3 % 05/05/19 19 Unknown COMPLETE BLOOD COUNT [id number] MCV 97.8 fL 9 Unknown COMPLETE BLOOD COUNT 6411590 MCH 31.6 pg 9 Unknown COMPLETE BLOOD COUNT 1379630 MCHC 32.3 g/dL 9 Unknown COMPLETE BLOOD COUNT 2522433 PLATELET COUNT 213 10e9/L Unknown COMPLETE BLOOD COUNT 0848615 Mean Plt Volume 11.7 fL Unknown COMPLETE BLOOD COUNT 5308542 Neut Auto 55.7 % 9 Unknown COMPLETE BLOOD COUNT [id number] Lymph Auto 33.2 % 05/05/19 19 Unknown COMPLETE BLOOD COUNT 7849230 [place] Auto 8.5 % 9 Unknown COMPLETE BLOOD COUNT 7748253 RDW 13.9 % 9 Unknown COMPLETE BLOOD COUNT 3178352 Eos Auto 2.4 % 9 Unknown COMPLETE BLOOD COUNT 8826487 Baso Auto 0.2 % 9 Unknown COMPLETE BLOOD COUNT 5505780 Neutrophil Abs 4.57 10e9/L Unknown COMPLETE BLOOD COUNT 7987858 Lymphocyte Abs 2.72 10e9/L Unknown COMPLETE BLOOD COUNT [id number] Monocyte Abs 0.70 10e9/L 04/08 Unknown COMPLETE BLOOD COUNT [id number] Eosinophil Abs 0.20 10e9/L Unknown COMPLETE BLOOD COUNT [id number] RDW-SD 48.8 fL 9 Unknown COMPLETE BLOOD COUNT [id number] Basophil Abs 0.02 10e9/L 04/08 Unknown MICROALBUMIN URINE RANDOM 82567 U Microalbumin 19.3 mg/L 01/19/2018 Unknown MICROALBUMIN URINE RANDOM 94383 U Creatinine 96 mg/dL 1 Unknown MICROALBUMIN URINE RANDOM 95294 ALB/CR Ratio 20.1 mg/gCR 01/19/2018 Unknown LIPID GROUP 36868 Cholesterol 173 mg/dL 01/13/2018 Unkno wn LIPID GROUP 59807 Triglyceride 386 mg/dL 01/13/2018 Unkn own LIPID GROUP 08030 HDL CHOLESTEROL 37 mg/dL 01/13/2018 U nknown LIPID GROUP 41951 Chol/HDL Ratio 4.68 ratio 01/13/2018 U nknown LIPID GROUP 99429 NON-HDL Chol 136 mg/dL 01/13/2018 Unkn own LIPID GROUP 04404 LDL Cholesterol 59 mg/dL 01/13/2018 U nknown COMPLETE BLOOD COUNT [id number] WBC TNP:Client Request 01/13/2018 Unknown COMPLETE BLOOD COUNT 6017902 RBC TNP:Client Request 01/13/2018 Unknown COMPLETE BLOOD COUNT [id number] HEMOGLOBIN TNP:Client Request 01/13/2018 Unknown COMPLETE BLOOD COUNT 7602916 HEMATOCRIT TNP:Client Request 01/13/2018 Unknown COMPLETE BLOOD COUNT 8259903 MCV TNP:Client Request 01/13/2018 Unknown COMPLETE BLOOD COUNT 1984713 MCH TNP:Client Request 01/13/2018 Unknown COMPLETE BLOOD COUNT 6978647 MCHC TNP:Client Request 01/13/2018 Unknown COMPLETE BLOOD COUNT 9935844 PLATELET COUNT TNP:Client Req uest 01/13/2018 Unknown COMPLETE BLOOD COUNT 4574503 Mean Plt Volume TNP:Client Re quest 01/13/2018 Unknown COMPLETE BLOOD COUNT [id number] Neut Auto TNP:Client Request 01/13/2018 Unknown COMPLETE BLOOD COUNT 1268859 Lymph Auto TNP:Client Request 01/13/2018 Unknown COMPLETE BLOOD COUNT [id number] [place] Auto TNP:Client Request 01/13/2018 Unknown COMPLETE BLOOD COUNT [id number] RDW TNP:Client Request 01/13/2018 Unknown COMPLETE BLOOD COUNT 1456921 Eos Auto TNP:Client Request 01/13/2018 Unknown COMPLETE BLOOD COUNT [id number] Baso Auto TNP:Client Request 01/13/2018 Unknown COMPLETE BLOOD COUNT 1237772 Neutrophil Abs TNP:Client Req uest 01/13/2018 Unknown COMPLETE BLOOD COUNT [id number] Lymphocyte Abs TNP:Client Req uest 01/13/2018 Unknown COMPLETE BLOOD COUNT [id number] Monocyte Abs TNP:Client Reque st 01/13/2018 Unknown COMPLETE BLOOD COUNT [id number] Eosinophil Abs TNP:Client Req uest 01/13/2018 Unknown COMPLETE BLOOD COUNT 1440087 RDW-SD TNP:Client Request 01/13/2018 Unknown COMPLETE BLOOD COUNT 8374476 Basophil Abs TNP:Client Reque st 01/13/2018 Unknown GLYCOSYLATED HEMOGLOBIN TEST 77312 Hgb A1c 24709-7 6.2 % 1 Unknown THYROID STIMULATING HORMONE 97408 TSH 2.764 uIU/mL 01/13/2018 Unknown COMPREHENSIVE METABOLIC 55077 AST 19 U/L 2017 Unknown COMPREHENSIVE METABOLIC 53403 ALT 21 U/L 2017 Unknown COMPREHENSIVE METABOLIC 08266 BUN 16 mg/dL 2017 Unknown COMPREHENSIVE METABOLIC 65909 ALBUMIN 4.2 g/dL 2017 Unknown COMPREHENSIVE METABOLIC 57979 CHLORIDE 105 mmol/L 01/13 Unknown COMPREHENSIVE METABOLIC 01617 Bili Total 0.5 mg/dL 01/13 Unknown COMPREHENSIVE METABOLIC 31557 ALK PHOS 85 U/L 2017 Unknown COMPREHENSIVE METABOLIC 88459 SODIUM 139 mmol/L 01/13 Unknown COMPREHENSIVE METABOLIC 57576 CREATININE 1.07 mg/dL 01/04 Unknown COMPREHENSIVE METABOLIC 86543 CALCIUM 9.2 mg/dL 2017 Unknown COMPREHENSIVE METABOLIC 63896 POTASSIUM 4.4 mmol/L 01/13 Unknown COMPREHENSIVE METABOLIC 75101 Total Protein 7.7 g/dL Unknown COMPREHENSIVE METABOLIC 20426 Glucose 130 mg/dL 2017 Unknown COMPREHENSIVE METABOLIC 10464 Bicarbonate 27 mmol/L 01/04 Unknown COMPREHENSIVE METABOLIC 26539 AGAP 7 mmol/L 2017 Unknown PSA EQUIMOLAR JERSON 71223 PSA Total 1.16 ng/mL 8 Unknown MEAN GLUC 4082753 Calc Mean Gluc 131 mg/dL 01/13/2018 Unkn own GFR CALC 7958657 GFR Non Afr Amr >60 mL/min 01/13/2018 Un known GFR CALC 8497234 GFR Afr Amr >60 mL/min 01/13/2018 Unknow n MEAN GLUC 7664604 Calc Mean Gluc 134 mg/dL 10/06/2017 Unkn own GFR CALC 9054270 GFR Non Afr Amr >60 mL/min 10/06/2017 Un known GFR CALC 1318221 GFR Afr Amr >60 mL/min 10/06/2017 Unknow n GLYCOSYLATED HEMOGLOBIN TEST 03080 Hgb A1c 74452-7 6.3 % 0 10/06/2017 Unknown VITAMIN B 12 31202 VITAMIN B12 1202 pg/mL 10/06/2017 Unk nown COMPLETE BLOOD COUNT 0986174 WBC 7.4 10e9/L 10/07/19 18 Unknown COMPLETE BLOOD COUNT 7048081 RBC 4.24 10e12/L 2017 Unknown COMPLETE BLOOD COUNT 5628252 HEMOGLOBIN 13.5 g/dL 10/07/19 18 Unknown COMPLETE BLOOD COUNT [id number] HEMATOCRIT 41.6 % 10/07/19 18 Unknown COMPLETE BLOOD COUNT 7333828 MCV 98.1 fL 8 Unknown COMPLETE BLOOD COUNT 7105263 MCH 31.8 pg 8 Unknown COMPLETE BLOOD COUNT 7603606 MCHC 32.5 g/dL 8 Unknown COMPLETE BLOOD COUNT 5027049 PLATELET COUNT 223 10e9/L 06/2017 Unknown COMPLETE BLOOD COUNT 3625337 Mean Plt Volume 11.9 fL 06/2017 Unknown COMPLETE BLOOD COUNT 7645722 Neut Auto 58.0 % 8 Unknown COMPLETE BLOOD COUNT 3599273 Lymph Auto 29.7 % 10/07/19 18 Unknown COMPLETE BLOOD COUNT 7197759 [place] Auto 8.3 % 8 Unknown COMPLETE BLOOD COUNT 4459733 RDW 14.0 % 8 Unknown COMPLETE BLOOD COUNT 6801476 Eos Auto 3.7 % 8 Unknown COMPLETE BLOOD COUNT 7068169 Baso Auto 0.3 % 8 Unknown COMPLETE BLOOD COUNT 1630756 Neutrophil Abs 4.29 10e9/L Unknown COMPLETE BLOOD COUNT 7356644 Lymphocyte Abs 2.20 10e9/L Unknown COMPLETE BLOOD COUNT 9839116 Monocyte Abs 0.61 10e9/L 06/2017 Unknown COMPLETE BLOOD COUNT 1903855 Eosinophil Abs 0.27 10e9/L Unknown COMPLETE BLOOD COUNT 1872931 RDW-SD 48.6 fL 8 Unknown COMPLETE BLOOD COUNT 5360017 Basophil Abs 0.02 10e9/L 06/2017 Unknown LIPID GROUP 96873 Cholesterol 216 mg/dL 10/06/2017 Unkno wn LIPID GROUP 10541 Triglyceride 335 mg/dL 10/06/2017 Unkn own LIPID GROUP 89946 HDL CHOLESTEROL 33 mg/dL 10/06/2017 U nkno LIPID GROUP 92250 Chol/HDL Ratio 6.55 ratio 10/06/2017 U nknon LIPID GROUP 06193 NON-HDL Chol 183 mg/dL 10/06/2017 Unkn own LIPID GROUP 32863 LDL Cholesterol 116 mg/dL 10/06/2017 U nknown COMPREHENSIVE METABOLIC 73333 AST 15 U/L 2017 Unknown COMPREHENSIVE METABOLIC 35386 ALT 15 U/L 2017 Unknown COMPREHENSIVE METABOLIC 32761 BUN 21 mg/dL 2017 Unknown COMPREHENSIVE METABOLIC 73694 ALBUMIN 4.1 g/dL 2017 Unknown COMPREHENSIVE METABOLIC 42781 CHLORIDE 107 mmol/L 10/06 Unknown COMPREHENSIVE METABOLIC 29278 Bili Total 0.6 mg/dL 10/06 Unknown COMPREHENSIVE METABOLIC 80209 ALK PHOS 68 U/L 2017 Unknown COMPREHENSIVE METABOLIC 08136 SODIUM 140 mmol/L 10/06 Unknown COMPREHENSIVE METABOLIC 60906 CREATININE 1.12 mg/dL 06/2017 Unknown COMPREHENSIVE METABOLIC 08045 CALCIUM 9.7 mg/dL 2017 Unknown COMPREHENSIVE METABOLIC 59656 POTASSIUM 4.6 mmol/L 10/06 Unknown COMPREHENSIVE METABOLIC 47716 Total Protein 6.6 g/dL Unknown COMPREHENSIVE METABOLIC 86950 Glucose 114 mg/dL 2017 Unknown COMPREHENSIVE METABOLIC 00337 Bicarbonate 26 mmol/L 06/2017 Unknown COMPREHENSIVE METABOLIC 74471 AGAP 7 mmol/L 2017 Unknown GLYCOSYLATED HEMOGLOBIN TEST 09971 Hgb A1c 71451-3 6.1 % 1 05/05/2016 Unknown GFR CALC 3570101 GFR Non Afr Amr >60 mL/min 03/05/2017 Un known GFR CALC 0661732 GFR Afr Amr >60 mL/min 03/05/2017 Unknow n MEAN GLUC 9379430 Calc Mean Gluc 128 mg/dL 03/05/2017 Unkn own COMPREHENSIVE METABOLIC 05339 AST 18 U/L 2016 Unknown COMPREHENSIVE METABOLIC 18655 ALT 20 U/L 2016 Unknown COMPREHENSIVE METABOLIC 99147 BUN 15 mg/dL 2016 Unknown COMPREHENSIVE METABOLIC 14487 ALBUMIN 4.3 g/dL 2016 Unknown COMPREHENSIVE METABOLIC 04359 CHLORIDE 105 mmol/L 03/05 Unknown COMPREHENSIVE METABOLIC 67753 Bili Total 0.5 mg/dL 03/05 Unknown COMPREHENSIVE METABOLIC 13530 ALK PHOS 57 U/L 2016 Unknown COMPREHENSIVE METABOLIC 28753 SODIUM 141 mmol/L 03/05 Unknown COMPREHENSIVE METABOLIC 96017 CREATININE 1.07 mg/dL 02/06 Unknown COMPREHENSIVE METABOLIC 11111 CALCIUM 9.3 mg/dL 2016 Unknown COMPREHENSIVE METABOLIC 59753 POTASSIUM 4.8 mmol/L 03/05 Unknown COMPREHENSIVE METABOLIC 37007 Total Protein 6.2 g/dL Unknown COMPREHENSIVE METABOLIC 72970 Glucose 118 mg/dL 2016 Unknown COMPREHENSIVE METABOLIC 91863 Bicarbonate 29 mmol/L 02/06 Unknown COMPREHENSIVE METABOLIC 85178 AGAP 7 mmol/L 2016 Unknown FREE T4 60121 T4 Free 1.38 ng/dL 03/05/2017 Unknown COMPLETE BLOOD COUNT 7068439 WBC 8.4 10e9/L 03/05/20 17 Unknown COMPLETE BLOOD COUNT 7909505 RBC 4.11 10e12/L 2016 Unknown COMPLETE BLOOD COUNT 6326420 HEMOGLOBIN 12.8 g/dL 03/05/20 17 Unknown COMPLETE BLOOD COUNT 3113088 HEMATOCRIT 40.1 % 03/05/20 17 Unknown COMPLETE BLOOD COUNT 1163770 MCV 97.6 fL 7 Unknown COMPLETE BLOOD COUNT 3866317 MCH 31.1 pg 7 Unknown COMPLETE BLOOD COUNT 9359413 MCHC 31.9 g/dL 7 Unknown COMPLETE BLOOD COUNT 2988111 PLATELET COUNT 184 10e9/L Unknown COMPLETE BLOOD COUNT 9433760 Mean Plt Volume 11.3 fL Unknown COMPLETE BLOOD COUNT 5827874 Neut Auto 62.5 % 7 Unknown COMPLETE BLOOD COUNT 5932109 Lymph Auto 26.4 % 03/05/20 17 Unknown COMPLETE BLOOD COUNT 2462123 [place] Auto 7.9 % 7 Unknown COMPLETE BLOOD COUNT 1461069 RDW 13.5 % 7 Unknown COMPLETE BLOOD COUNT 9015735 Eos Auto 3.0 % 7 Unknown COMPLETE BLOOD COUNT 0441216 Baso Auto 0.2 % 7 Unknown COMPLETE BLOOD COUNT 8549171 Neutrophil Abs 5.25 10e9/L Unknown COMPLETE BLOOD COUNT 9098775 Lymphocyte Abs 2.22 10e9/L Unknown COMPLETE BLOOD COUNT 1469170 Monocyte Abs 0.66 10e9/L 02/06 Unknown COMPLETE BLOOD COUNT 7536688 Eosinophil Abs 0.25 10e9/L Unknown COMPLETE BLOOD COUNT 7183746 RDW-SD 46.7 fL 7 Unknown COMPLETE BLOOD COUNT 5110518 Basophil Abs 0.02 10e9/L 02/06 Unknown THYROID STIMULATING HORMONE 42563 TSH 2.330 uIU/mL 03/05/2017 Unknown LIPID GROUP 22962 Cholesterol 135 mg/dL 03/05/2017 Unkno wn LIPID GROUP 20548 Triglyceride 297 mg/dL 03/05/2017 Unkn own LIPID GROUP 62674 HDL CHOLESTEROL 34 mg/dL 03/05/2017 U nknown LIPID GROUP 17678 Chol/HDL Ratio 3.97 ratio 03/05/2017 U nknown LIPID GROUP 45553 NON-HDL Chol 101 mg/dL 03/05/2017 Unkn own LIPID GROUP 84128 LDL Cholesterol 42 mg/dL 03/05/2017 U nknown GLYCOSYLATED HEMOGLOBIN TEST 69261 Hgb A1c 47526-6 6.5 % 1 05/07/2015 Unknown GFR CALC 7190920 GFR Non Afr Amr 55 mL/min 03/06/2016 Unk nown GFR CALC 4418117 GFR Afr Amr >60 mL/min 03/06/2016 Unknow n COMPLETE BLOOD COUNT 3406533 WBC 8.5 10e9/L 03/06/20 16 Unknown COMPLETE BLOOD COUNT 1847437 RBC 4.32 10e12/L 2015 Unknown COMPLETE BLOOD COUNT 7280700 HEMOGLOBIN 13.5 g/dL 03/06/20 16 Unknown COMPLETE BLOOD COUNT 2189776 HEMATOCRIT 41.3 % 03/06/20 16 Unknown COMPLETE BLOOD COUNT 7756742 MCV 95.6 fL 6 Unknown COMPLETE BLOOD COUNT 3994651 MCH 31.3 pg 6 Unknown COMPLETE BLOOD COUNT 1450662 MCHC 32.7 g/dL 6 Unknown COMPLETE BLOOD COUNT 2669891 PLATELET COUNT 191 10e9/L 04/2015 Unknown COMPLETE BLOOD COUNT 2317677 Mean Plt Volume 11.7 fL 04/2015 Unknown COMPLETE BLOOD COUNT 2852556 Neut Auto 64.2 % 6 Unknown COMPLETE BLOOD COUNT 8697811 Lymph Auto 25.9 % 03/06/20 16 Unknown COMPLETE BLOOD COUNT 0118630 [place] Auto 7.8 % 6 Unknown COMPLETE BLOOD COUNT 6631907 RDW 13.4 % 6 Unknown COMPLETE BLOOD COUNT 7297641 Eos Auto 2.0 % 6 Unknown COMPLETE BLOOD COUNT 3480880 Baso Auto 0.1 % 6 Unknown COMPLETE BLOOD COUNT 7342168 Neutrophil Abs 5.46 10e9/L Unknown COMPLETE BLOOD COUNT 4213436 Lymphocyte Abs 2.20 10e9/L Unknown COMPLETE BLOOD COUNT 0797914 Monocyte Abs 0.66 10e9/L 04/2015 Unknown COMPLETE BLOOD COUNT 9347019 Eosinophil Abs 0.17 10e9/L Unknown COMPLETE BLOOD COUNT 9036617 RDW-SD 45.0 fL 6 Unknown COMPLETE BLOOD COUNT 4654599 Basophil Abs 0.01 10e9/L 04/2015 Unknown FREE T4 87285 T4 Free 1.34 ng/dL 03/06/2016 Unknown MEAN GLUC 4300863 Calc Mean Gluc 140 mg/dL 03/06/2016 Unkn own COMPREHENSIVE METABOLIC 87118 AST 15 U/L 2015 Unknown COMPREHENSIVE METABOLIC 22035 ALT 18 U/L 2015 Unknown COMPREHENSIVE METABOLIC 04514 BUN 21 mg/dL 2015 Unknown COMPREHENSIVE METABOLIC 46069 ALBUMIN 4.3 g/dL 2015 Unknown COMPREHENSIVE METABOLIC 82595 CHLORIDE 103 mmol/L 03/06 Unknown COMPREHENSIVE METABOLIC 10709 Bili Total 0.4 mg/dL 03/06 Unknown COMPREHENSIVE METABOLIC 40598 ALK PHOS 68 U/L 2015 Unknown COMPREHENSIVE METABOLIC 63092 SODIUM 140 mmol/L 03/06 Unknown COMPREHENSIVE METABOLIC 64073 CREATININE 1.31 mg/dL 04/2015 Unknown COMPREHENSIVE METABOLIC 50459 CALCIUM 9.4 mg/dL 2015 Unknown COMPREHENSIVE METABOLIC 47492 POTASSIUM 4.8 mmol/L 03/06 Unknown COMPREHENSIVE METABOLIC 94005 Total Protein 6.6 g/dL Unknown COMPREHENSIVE METABOLIC 43818 Glucose 142 mg/dL 2015 Unknown COMPREHENSIVE METABOLIC 45154 Bicarbonate 29 mmol/L 04/2015 Unknown COMPREHENSIVE METABOLIC 66970 AGAP 8 mmol/L 2015 Unknown THYROID STIMULATING HORMONE 67204 TSH 2.288 uIU/mL 03/06/2016 Unknown LIPID GROUP 15403 Cholesterol 154 mg/dL 03/06/2016 Unkno wn LIPID GROUP 23667 Triglyceride 266 mg/dL 03/06/2016 Unkn own LIPID GROUP 50956 HDL CHOLESTEROL 38 mg/dL 03/06/2016 U nknown LIPID GROUP 97468 Chol/HDL Ratio 4.05 ratio 03/06/2016 U nknown LIPID GROUP 15303 NON-HDL Chol 116 mg/dL 03/06/2016 Unkn own LIPID GROUP 50880 LDL Cholesterol 63 mg/dL 03/06/2016 U nknown MEAN GLUC 5764602 Mean Glucose 128 mg/dL 08/31/2015 Unknow n COMPLETE BLOOD COUNT 7979956 WBC 8.4 10e9/L 08/31/19 16 Unknown COMPLETE BLOOD COUNT 1398641 RBC 4.12 10e12/L 2015 Unknown COMPLETE BLOOD COUNT 3707909 HEMOGLOBIN 12.8 g/dL 08/31/19 16 Unknown COMPLETE BLOOD COUNT 0999402 HEMATOCRIT 39.6 % 08/31/19 16 Unknown COMPLETE BLOOD COUNT 8443496 MCV 96.1 fL 6 Unknown COMPLETE BLOOD COUNT 0602981 MCH 31.1 pg 6 Unknown COMPLETE BLOOD COUNT 1765744 MCHC 32.3 g/dL 6 Unknown COMPLETE BLOOD COUNT 6701592 PLATELET COUNT 184 10e9/L Unknown COMPLETE BLOOD COUNT 3585368 Mean Plt Volume 12.0 fL Unknown COMPLETE BLOOD COUNT 9193189 Neut Auto 59.8 % 6 Unknown COMPLETE BLOOD COUNT 0927473 Lymph Auto 27.9 % 08/31/19 16 Unknown COMPLETE BLOOD COUNT 4439732 [place] Auto 9.1 % 6 Unknown COMPLETE BLOOD COUNT 8251435 RDW 13.6 % 6 Unknown COMPLETE BLOOD COUNT 7366207 Eos Auto 3.1 % 6 Unknown COMPLETE BLOOD COUNT 8939082 Baso Auto 0.1 % 6 Unknown COMPLETE BLOOD COUNT 1522532 Neutrophil Abs 5.02 10e9/L Unknown COMPLETE BLOOD COUNT 7314084 Lymphoctye Abs 2.34 10e9/L Unknown COMPLETE BLOOD COUNT 1893268 Monocyte Abs 0.76 10e9/L 08/05 Unknown COMPLETE BLOOD COUNT 5987825 Eosinophil Abs 0.26 10e9/L Unknown COMPLETE BLOOD COUNT 5962634 RDW-SD 46.3 fL 6 Unknown COMPLETE BLOOD COUNT 8944037 Basophil Abs 0.01 10e9/L 08/05 Unknown GLYCOSYLATED HEMOGLOBIN TEST 61095 Hgb A1c 66987-5 6.1 % 0 08/31/2015 Unknown GFR CALC 0030420 GFR Non Afr Amr >60 mL/min 08/31/2015 Un known GFR CALC 3679065 GFR Afr Amr >60 mL/min 08/31/2015 Unknow n FREE T4 03569 T4 Free 1.21 ng/dL 08/31/2015 Unknown THYROID STIMULATING HORMONE 37119 TSH 2.988 uIU/mL 08/31/2015 Unknown COMPREHENSIVE METABOLIC 46099 AST 16 U/L 2015 Unknown COMPREHENSIVE METABOLIC 44492 ALT 19 U/L 2015 Unknown COMPREHENSIVE METABOLIC 90072 BUN 17 mg/dL 2015 Unknown COMPREHENSIVE METABOLIC 81544 ALBUMIN 4.3 g/dL 2015 Unknown COMPREHENSIVE METABOLIC 14501 CHLORIDE 107 mmol/L 08/30 Unknown COMPREHENSIVE METABOLIC 28804 Bili Total 0.4 mg/dL 08/30 Unknown COMPREHENSIVE METABOLIC 07881 ALK PHOS 66 U/L 2015 Unknown COMPREHENSIVE METABOLIC 69392 SODIUM 140 mmol/L 08/30 Unknown COMPREHENSIVE METABOLIC 00588 CREATININE 1.07 mg/dL 08/05 Unknown COMPREHENSIVE METABOLIC 23939 CALCIUM 9.5 mg/dL 2015 Unknown COMPREHENSIVE METABOLIC 70716 POTASSIUM 4.5 mmol/L 08/30 Unknown COMPREHENSIVE METABOLIC 98391 Total Protein 6.7 g/dL Unknown COMPREHENSIVE METABOLIC 02165 Glucose 122 mg/dL 2015 Unknown COMPREHENSIVE METABOLIC 73472 Bicarbonate 26 mmol/L 08/05 Unknown COMPREHENSIVE METABOLIC 69449 AGAP 7 mmol/L 2015 Unknown LIPID GROUP 61127 Cholesterol 171 mg/dL 08/31/2015 Unkno wn LIPID GROUP 84847 Triglyceride 428 mg/dL 08/31/2015 Unkn own LIPID GROUP 09066 HDL CHOLESTEROL 35 mg/dL 08/31/2015 U nknown LIPID GROUP 63685 Chol/HDL Ratio 4.89 ratio 08/31/2015 U nknown LIPID GROUP 67766 NON-HDL Chol 136 mg/dL 08/31/2015 Unkn own LIPID GROUP 58401 LDL Cholesterol 50 mg/dL 08/31/2015 U nknown PSA EQUIMOLAR JERSON 57522 PSA Total 0.47 ng/mL 6 Unknown GFR CALC 4914109 GFR AA >60 ML/MIN 01/12/2015 Unknown GFR CALC 2471238 GFR NON-AA >60 ML/MIN 01/12/2015 Unknown COMPREHENSIVE METABOLIC 08719 AST 18 U/L 2014 Unknown COMPREHENSIVE METABOLIC 02473 ALT 19 IU/L 2014 Unknown COMPREHENSIVE METABOLIC 32349 BUN 19 MG/DL 2014 Unknown COMPREHENSIVE METABOLIC 27763 ALBUMIN 4.7 GM/DL 2014 Unknown COMPREHENSIVE METABOLIC 41119 CHLORIDE 104 MMOL/L 01/12 Unknown COMPREHENSIVE METABOLIC 71038 BILI TOT 0.8 MG/DL 2014 Unknown COMPREHENSIVE METABOLIC 42086 ALK PHOS 58 U/L 2014 Unknown COMPREHENSIVE METABOLIC 01793 SODIUM 139 MMOL/L 01/12 Unknown COMPREHENSIVE METABOLIC 82708 CREATININE 1.09 MG/DL 12/2014 Unknown COMPREHENSIVE METABOLIC 81898 CALCIUM 9.6 MG/DL 2014 Unknown COMPREHENSIVE METABOLIC 98130 POTASSIUM 4.4 MMOL/L 01/12 Unknown COMPREHENSIVE METABOLIC 72298 PROT TOT 6.7 GM/DL 2014 Unknown COMPREHENSIVE METABOLIC 77037 Glucose 109 MG/DL 2014 Unknown COMPREHENSIVE METABOLIC 45127 BICARB 27 MMOL/L 2014 Unknown COMPREHENSIVE METABOLIC 08613 ANION GAP 8 MEQ/L 2014 Unknown LIPID GROUP 69171 HDL TEST 36 MG/DL 01/12/2015 Unknown LIPID GROUP 16459 TRIG 220 MG/DL 01/12/2015 Unknown LIPID GROUP 85677 TEST LDL 58 MG/DL 01/12/2015 Unknown LIPID GROUP 03534 CHOL 138 MG/DL 01/12/2015 Unknown LIPID GROUP 02159 RCHOL/HDL 3.83 RATIO 01/12/2015 Unknow n LIPID GROUP 82089 NON-HDL CH 102 MG/DL 01/12/2015 Unknow n GLYCOSYLATED HEMOGLOBIN TEST 49637 A1C HPLC 44242-4 6.1 % 1 Unknown COMPLETE BLOOD COUNT 7968229 WBC 7.1 10e9/L 01/13/20 15 Unknown COMPLETE BLOOD COUNT 1114366 RBC 4.38 10e12/L 2014 Unknown COMPLETE BLOOD COUNT 5726967 HGB 13.7 g/dL 5 Unknown COMPLETE BLOOD COUNT 6213613 HCT DET 41.3 % 5 Unknown COMPLETE BLOOD COUNT 5414857 MCV 94.3 fL 5 Unknown COMPLETE BLOOD COUNT 4069875 MCH 31.3 pg 5 Unknown COMPLETE BLOOD COUNT 8590320 MCHC 33.2 g/dL 5 Unknown COMPLETE BLOOD COUNT 2240234 PLT 174 10e9/L 01/13/20 15 Unknown COMPLETE BLOOD COUNT 1155264 MPV 11.8 fL 5 Unknown COMPLETE BLOOD COUNT 4683893 SAMIR % 61.3 % 5 Unknown COMPLETE BLOOD COUNT 7035880 LY % 28.3 % 5 Unknown COMPLETE BLOOD COUNT 3960324 MON % 7.6 % 5 Unknown COMPLETE BLOOD COUNT 5832703 EOS % 2.7 % 5 Unknown COMPLETE BLOOD COUNT 9963602 BASO % 0.1 % 5 Unknown COMPLETE BLOOD COUNT 0099500 RDW 13.1 % 5 Unknown COMPLETE BLOOD COUNT 8749945 ABS SAMIR 4.35 10e9/L 015 Unknown COMPLETE BLOOD COUNT 8359332 ABS LYMPH 2.01 10e9/L 015 Unknown COMPLETE BLOOD COUNT 3326349 ABS MONO 0.54 10e9/L 015 Unknown COMPLETE BLOOD COUNT 9280169 ABS EOS 0.19 10e9/L 015 Unknown COMPLETE BLOOD COUNT 3171592 ABS BASO 0.01 10e9/L 015 Unknown COMPLETE BLOOD COUNT 2550021 RDW-SD 43.9 fL 5 Unknown GLYCOSYLATED HEMOGLOBIN TEST 33500 A1C HPLC 43899-9 6.1 % 0 08/15/2014 Unknown COMPLETE BLOOD COUNT 9245833 WBC 9.7 10e9/L 08/16/19 15 Unknown COMPLETE BLOOD COUNT 1426662 RBC 4.29 10e12/L 2014 Unknown COMPLETE BLOOD COUNT 0088592 HGB 13.3 g/dL 5 Unknown COMPLETE BLOOD COUNT 4392569 HCT DET 40.5 % 5 Unknown COMPLETE BLOOD COUNT 4445364 MCV 94.4 fL 5 Unknown COMPLETE BLOOD COUNT 7171248 MCH 31.0 pg 5 Unknown COMPLETE BLOOD COUNT 5749180 MCHC 32.8 g/dL 5 Unknown COMPLETE BLOOD COUNT 8647146 PLT 227 10e9/L 08/16/19 15 Unknown COMPLETE BLOOD COUNT 0173830 MPV 11.0 fL 5 Unknown COMPLETE BLOOD COUNT 3433989 SAMIR % 66.4 % 5 Unknown COMPLETE BLOOD COUNT 6927995 LY % 23.7 % 5 Unknown COMPLETE BLOOD COUNT 5505081 MON % 8.1 % 5 Unknown COMPLETE BLOOD COUNT 4497994 EOS % 1.6 % 5 Unknown COMPLETE BLOOD COUNT 0738093 BASO % 0.2 % 5 Unknown COMPLETE BLOOD COUNT 6181407 RDW 13.4 % 5 Unknown COMPLETE BLOOD COUNT 6951012 ABS SAMIR 6.44 10e9/L 015 Unknown COMPLETE BLOOD COUNT 1646244 ABS LYMPH 2.30 10e9/L 015 Unknown COMPLETE BLOOD COUNT 4880567 ABS MONO 0.79 10e9/L 015 Unknown COMPLETE BLOOD COUNT 9165192 ABS EOS 0.16 10e9/L 015 Unknown COMPLETE BLOOD COUNT 1673426 ABS BASO 0.02 10e9/L 015 Unknown COMPLETE BLOOD COUNT 8208423 RDW-SD 44.7 fL 5 Unknown COMPREHENSIVE METABOLIC 07155 AST 17 U/L 2014 Unknown COMPREHENSIVE METABOLIC 74478 ALT 23 IU/L 2014 Unknown COMPREHENSIVE METABOLIC 37445 BUN 16 MG/DL 2014 Unknown COMPREHENSIVE METABOLIC 66757 ALBUMIN 4.3 GM/DL 2014 Unknown COMPREHENSIVE METABOLIC 93909 CHLORIDE 107 MMOL/L 08/15 Unknown COMPREHENSIVE METABOLIC 60472 BILI TOT 0.4 MG/DL 2014 Unknown COMPREHENSIVE METABOLIC 75940 ALK PHOS 91 U/L 2014 Unknown COMPREHENSIVE METABOLIC 55848 SODIUM 139 MMOL/L 08/15 Unknown COMPREHENSIVE METABOLIC 38540 CREATININE 1.07 MG/DL 08/04 Unknown COMPREHENSIVE METABOLIC 80576 CALCIUM 9.6 MG/DL 2014 Unknown COMPREHENSIVE METABOLIC 75257 POTASSIUM 4.6 MMOL/L 08/15 Unknown COMPREHENSIVE METABOLIC 42598 PROT TOT 6.7 GM/DL 2014 Unknown COMPREHENSIVE METABOLIC 09507 Glucose 111 MG/DL 2014 Unknown COMPREHENSIVE METABOLIC 51086 BICARB 27 MMOL/L 2014 Unknown COMPREHENSIVE METABOLIC 75930 ANION GAP 5 MEQ/L 2014 Unknown GFR CALC [id number] GFR AA >60 ML/MIN 08/15/2014 Unknown GFR CALC [id number] GFR NON-AA >60 ML/MIN 08/15/2014 Unknown THYROID STIMULATING HORMONE 14859 TSH 1.598 uIU/ML 08/15/2014 Unknown LIPID GROUP 76448 HDL TEST 33 MG/DL 08/15/2014 Unknown LIPID GROUP 35461 TRIG 187 MG/DL 08/15/2014 Unknown LIPID GROUP 88041 TEST LDL 58 MG/DL 08/15/2014 Unknown LIPID GROUP 80728 CHOL 128 MG/DL 08/15/2014 Unknown LIPID GROUP 29276 RCHOL/HDL 3.88 RATIO 08/15/2014 Unknow n LIPID GROUP 06193 NON-HDL CH 95 MG/DL 08/15/2014 Unknow n PSA EQUIMOLAR JERSON 23179 PSA EQ 0.70 NG/ML 5 Unknown FREE T4 53310 FREE T4 1.32 NG/DL 08/15/2014 Unknown GFR CALC 5321141 GFR AA >60 ML/MIN 12/14/2013 Unknown GFR CALC 1704870 GFR NON-AA 58.0L ML/MIN 12/14/2013 Unkno wn COMPLETE BLOOD COUNT [id number] WBC 8.7 10e9/L 12/15/19 14 Unknown COMPLETE BLOOD COUNT 0155894 RBC 4.32 10e12/L 2013 Unknown COMPLETE BLOOD COUNT 4247955 HGB 13.5 g/dL 4 Unknown COMPLETE BLOOD COUNT 7938073 HCT DET 40.6 % 4 Unknown COMPLETE BLOOD COUNT 6723830 MCV 94.0 fL 4 Unknown COMPLETE BLOOD COUNT 2894864 MCH 31.3 pg 4 Unknown COMPLETE BLOOD COUNT 7271453 MCHC 33.3 g/dL 4 Unknown COMPLETE BLOOD COUNT 4269137 PLT 205 10e9/L 12/15/19 14 Unknown COMPLETE BLOOD COUNT 3319550 MPV 11.7 fL 4 Unknown COMPLETE BLOOD COUNT [id number] SAMIR % 62.5 % 4 Unknown COMPLETE BLOOD COUNT 9643596 LY % 26.9 % 4 Unknown COMPLETE BLOOD COUNT [id number] MON % 8.8 % 4 Unknown COMPLETE BLOOD COUNT 9133556 EOS % 1.7 % 4 Unknown COMPLETE BLOOD COUNT [id number] BASO % 0.1 % 4 Unknown COMPLETE BLOOD COUNT 7444328 RDW 13.4 % 4 Unknown COMPLETE BLOOD COUNT [id number] ABS SAMIR 5.44 10e9/L 014 Unknown COMPLETE BLOOD COUNT 6310003 ABS LYMPH 2.34 10e9/L 014 Unknown COMPLETE BLOOD COUNT 1928655 ABS MONO 0.77 10e9/L 014 Unknown COMPLETE BLOOD COUNT [id number] ABS EOS 0.15 10e9/L 014 Unknown COMPLETE BLOOD COUNT [id number] ABS BASO 0.01 10e9/L 014 Unknown COMPLETE BLOOD COUNT [id number] RDW-SD 44.7 fL 4 Unknown COMPREHENSIVE METABOLIC 87591 AST 14 U/L 2013 Unknown COMPREHENSIVE METABOLIC 54803 ALT 12 IU/L 2013 Unknown COMPREHENSIVE METABOLIC 55304 BUN 24 MG/DL 2013 Unknown COMPREHENSIVE METABOLIC 55210 ALBUMIN 4.5 GM/DL 2013 Unknown COMPREHENSIVE METABOLIC 54735 CHLORIDE 104 MMOL/L 12/14 Unknown COMPREHENSIVE METABOLIC 96971 BILI TOT 0.6 MG/DL 2013 Unknown COMPREHENSIVE METABOLIC 31626 ALK PHOS 82 U/L 2013 Unknown COMPREHENSIVE METABOLIC 82918 SODIUM 135 MMOL/L 12/14 Unknown COMPREHENSIVE METABOLIC 54270 CREATININE 1.25 MG/DL 12/05 Unknown COMPREHENSIVE METABOLIC 19974 CALCIUM 9.8 MG/DL 2013 Unknown COMPREHENSIVE METABOLIC 88077 POTASSIUM 4.7 MMOL/L 12/14 Unknown COMPREHENSIVE METABOLIC 44439 PROT TOT 6.7 GM/DL 2013 Unknown COMPREHENSIVE METABOLIC 49831 Glucose 126 MG/DL 2013 Unknown COMPREHENSIVE METABOLIC 64540 BICARB 27 MMOL/L 2013 Unknown COMPREHENSIVE METABOLIC 16124 ANION GAP 4 MEQ/L 2013 Unknown THYROID STIMULATING HORMONE 23395 TSH 3.281 uIU/ML 12/14/2013 Unknown FREE T4 13636 FREE T4 1.28 NG/DL 12/14/2013 Unknown LIPID GROUP 92838 HDL TEST 36 MG/DL 12/14/2013 Unknown LIPID GROUP 98025 TRIG 253 MG/DL 12/14/2013 Unknown LIPID GROUP 78317 TEST LDL 56 MG/DL 12/14/2013 Unknown LIPID GROUP 58783 CHOL 143 MG/DL 12/14/2013 Unknown LIPID GROUP 88498 RCHOL/HDL 3.97 RATIO 12/14/2013 Unknow n LIPID GROUP 05922 NON-HDL CH 107 MG/DL 12/14/2013 Unknow n GLYCOSYLATED HEMOGLOBIN TEST 75956 A1C HPLC 36082-5 6.1 % 0 12/14/2013 Unknown GLYCOSYLATED HEMOGLOBIN TEST 04191 A1C HPLC 01911-6 6.0 % 0 06/08/2013 Unknown LIPID GROUP 99584 HDL TEST 39 MG/DL 06/08/2013 Unknown LIPID GROUP 40990 TRIG 166 MG/DL 06/08/2013 Unknown LIPID GROUP 39296 TEST LDL 86 MG/DL 06/08/2013 Unknown LIPID GROUP 53552 CHOL 158 MG/DL 06/08/2013 Unknown LIPID GROUP 43751 RCHOL/HDL 4.05 RATIO 06/08/2013 Unknow n COMPREHENSIVE METABOLIC 82709 AST 17 U/L 2013 Unknown COMPREHENSIVE METABOLIC 52028 ALT 25 IU/L 2013 Unknown COMPREHENSIVE METABOLIC 81038 BUN 18 MG/DL 2013 Unknown COMPREHENSIVE METABOLIC 46075 ALBUMIN 4.5 GM/DL 2013 Unknown COMPREHENSIVE METABOLIC 86473 CHLORIDE 103 MMOL/L 06/08 Unknown COMPREHENSIVE METABOLIC 99130 BILI TOT 0.4 MG/DL 2013 Unknown COMPREHENSIVE METABOLIC 16407 ALK PHOS 72 U/L 2013 Unknown COMPREHENSIVE METABOLIC 26512 SODIUM 137 MMOL/L 06/08 Unknown COMPREHENSIVE METABOLIC 29075 CREATININE 1.07 MG/DL 08/2013 Unknown COMPREHENSIVE METABOLIC 27867 CALCIUM 9.7 MG/DL 2013 Unknown COMPREHENSIVE METABOLIC 80614 POTASSIUM 4.7 MMOL/L 06/08 Unknown COMPREHENSIVE METABOLIC 14441 PROT TOT 6.6 GM/DL 2013 Unknown COMPREHENSIVE METABOLIC 67775 Glucose 130 MG/DL 2013 Unknown COMPREHENSIVE METABOLIC 12789 BICARB 25 MMOL/L 2013 Unknown COMPREHENSIVE METABOLIC 10448 ANION GAP 9 MEQ/L 2013 Unknown FREE T4 33638 FREE T4 1.29 NG/DL 06/08/2013 Unknown THYROID STIMULATING HORMONE 52304 TSH 2.445 uIU/ML 06/08/2013 Unknown GFR CALC 2817126 GFR AA >60 ML/MIN 06/08/2013 Unknown GFR CALC 4356740 GFR NON-AA >60 ML/MIN 06/08/2013 Unknown COMPLETE BLOOD COUNT 2339704 WBC 8.2 10e9/L 06/09/19 14 Unknown COMPLETE BLOOD COUNT [id number] RBC 4.63 10e12/L 2013 Unknown COMPLETE BLOOD COUNT 4834122 HGB 14.1 g/dL 4 Unknown COMPLETE BLOOD COUNT 6086981 HCT DET 42.6 % 4 Unknown COMPLETE BLOOD COUNT 0555206 MCV 92.0 fL 4 Unknown COMPLETE BLOOD COUNT 5588382 MCH 30.5 pg 4 Unknown COMPLETE BLOOD COUNT 7655633 MCHC 33.1 g/dL 4 Unknown COMPLETE BLOOD COUNT 3317593 PLT 222 10e9/L 06/09/19 14 Unknown COMPLETE BLOOD COUNT 7164984 MPV 10.8 fL 4 Unknown COMPLETE BLOOD COUNT [id number] SAMIR % 60.8 % 4 Unknown COMPLETE BLOOD COUNT 1224486 LY % 29.2 % 4 Unknown COMPLETE BLOOD COUNT 1758897 MON % 7.6 % 4 Unknown COMPLETE BLOOD COUNT 6084141 EOS % 2.3 % 4 Unknown COMPLETE BLOOD COUNT 9608629 BASO % 0.1 % 4 Unknown COMPLETE BLOOD COUNT 0732773 RDW 13.7 % 4 Unknown COMPLETE BLOOD COUNT [id number] ABS SAMIR 4.99 10e9/L 014 Unknown COMPLETE BLOOD COUNT 4808085 ABS LYMPH 2.39 10e9/L 014 Unknown COMPLETE BLOOD COUNT [id number] ABS MONO 0.62 10e9/L 014 Unknown COMPLETE BLOOD COUNT 5509148 ABS EOS 0.19 10e9/L 014 Unknown COMPLETE BLOOD COUNT 5475375 ABS BASO 0.01 10e9/L 014 Unknown COMPLETE BLOOD COUNT 8253911 RDW-SD 45.2 fL 4 Unknown LIPID GROUP 98627 HDL TEST 40 MG/DL 11/11/2012 Unknown LIPID GROUP 20845 TRIG 153 MG/DL 11/11/2012 Unknown LIPID GROUP 45955 TEST LDL 71 MG/DL 11/11/2012 Unknown LIPID GROUP 84526 CHOL 142 MG/DL 11/11/2012 Unknown LIPID GROUP 98208 RCHOL/HDL 3.55 RATIO 11/11/2012 Unknow n GFR CALC 1095141 GFR AA >60 ML/MIN 11/11/2012 Unknown GFR CALC 4386578 GFR NON-AA 57.0L ML/MIN 11/11/2012 Unkno wn HEMOGLOBIN A1C (GLYCOSYLATED) 8077488 A1C [facility] 33868-0 5.9 % 11/11/2012 Unknown THYROID STIMULATING HORMONE 22942 TSH 2.439 uIU/ML 11/11/2012 Unknown COMPLETE BLOOD COUNT 3495691 WBC 8.5 10e9/L 11/12/19 13 Unknown COMPLETE BLOOD COUNT [id number] RBC 4.42 10e12/L 2012 Unknown COMPLETE BLOOD COUNT 1122475 HGB 13.7 g/dL 3 Unknown COMPLETE BLOOD COUNT 4210930 HCT DET 41.3 % 3 Unknown COMPLETE BLOOD COUNT 4083608 MCV 93.4 fL 3 Unknown COMPLETE BLOOD COUNT 2435591 MCH 31.0 pg 3 Unknown COMPLETE BLOOD COUNT 2126633 MCHC 33.2 g/dL 3 Unknown COMPLETE BLOOD COUNT 9071306 PLT 220 10e9/L 11/12/19 13 Unknown COMPLETE BLOOD COUNT 2439391 MPV 10.8 fL 3 Unknown COMPLETE BLOOD COUNT 0957386 SAMIR % 60.4 % 3 Unknown COMPLETE BLOOD COUNT 6222065 LY % 28.7 % 3 Unknown COMPLETE BLOOD COUNT 2154478 MON % 8.0 % 3 Unknown COMPLETE BLOOD COUNT 5125995 EOS % 2.8 % 3 Unknown COMPLETE BLOOD COUNT 6260567 BASO % 0.1 % 3 Unknown COMPLETE BLOOD COUNT 3231427 RDW 13.7 % 3 Unknown COMPLETE BLOOD COUNT 0452478 ABS SAMIR 5.13 10e9/L 013 Unknown COMPLETE BLOOD COUNT 0586402 ABS LYMPH 2.44 10e9/L 013 Unknown COMPLETE BLOOD COUNT 7294516 ABS MONO 0.68 10e9/L 013 Unknown COMPLETE BLOOD COUNT 9335645 ABS EOS 0.24 10e9/L 013 Unknown COMPLETE BLOOD COUNT 7835692 ABS BASO 0.01 10e9/L 013 Unknown COMPLETE BLOOD COUNT 8278888 RDW-SD 45.6 fL 3 Unknown COMPREHENSIVE METABOLIC 15283 AST 19 U/L 2012 Unknown COMPREHENSIVE METABOLIC 44617 ALT 28 IU/L 2012 Unknown COMPREHENSIVE METABOLIC 30821 BUN 31 MG/DL 2012 Unknown COMPREHENSIVE METABOLIC 60721 ALBUMIN 4.7 GM/DL 2012 Unknown COMPREHENSIVE METABOLIC 56391 CHLORIDE 106 MMOL/L 11/11 Unknown COMPREHENSIVE METABOLIC 08737 BILI TOT 0.5 MG/DL 2012 Unknown COMPREHENSIVE METABOLIC 07182 ALK PHOS 64 U/L 2012 Unknown COMPREHENSIVE METABOLIC 61443 SODIUM 136 MMOL/L 11/11 Unknown COMPREHENSIVE METABOLIC 07101 CREATININE 1.27 MG/DL 11/2012 Unknown COMPREHENSIVE METABOLIC 87456 CALCIUM 9.4 MG/DL 2012 Unknown COMPREHENSIVE METABOLIC 69713 POTASSIUM 4.9 MMOL/L 11/11 Unknown COMPREHENSIVE METABOLIC 65520 PROT TOT 6.7 GM/DL 2012 Unknown COMPREHENSIVE METABOLIC 81210 Glucose 108 MG/DL 2012 Unknown COMPREHENSIVE METABOLIC 43415 BICARB 21 MMOL/L 2012 Unknown COMPREHENSIVE METABOLIC 64929 ANION GAP 9 MEQ/L 2012 Unknown THYROID STIMULATING HORMONE 61764 TSH 2.572 uIU/ML 05/04/2012 Unknown COMPLETE BLOOD COUNT 0453690 WBC 9.3 10e9/L 05/04/19 13 Unknown COMPLETE BLOOD COUNT 0878490 RBC 4.43 10e12/L 2012 Unknown COMPLETE BLOOD COUNT 7221114 HGB 14.2 g/dL 3 Unknown COMPLETE BLOOD COUNT 3555915 HCT DET 41.1 % 3 Unknown COMPLETE BLOOD COUNT 7105424 MCV 92.8 fL 3 Unknown COMPLETE BLOOD COUNT 4440072 MCH 32.1 pg 3 Unknown COMPLETE BLOOD COUNT 4563175 MCHC 34.5 g/dL 3 Unknown COMPLETE BLOOD COUNT 5125566 PLT 193 10e9/L 05/04/19 13 Unknown COMPLETE BLOOD COUNT 2806793 MPV 10.8 fL 3 Unknown COMPLETE BLOOD COUNT 8556708 SAMIR % 63.0 % 3 Unknown COMPLETE BLOOD COUNT 0116926 LY % 25.3 % 3 Unknown COMPLETE BLOOD COUNT 3187381 MON % 9.1 % 3 Unknown COMPLETE BLOOD COUNT 1755569 EOS % 2.5 % 3 Unknown COMPLETE BLOOD COUNT 2547268 BASO % 0.1 % 3 Unknown COMPLETE BLOOD COUNT 3947533 RDW 12.6 % 3 Unknown COMPLETE BLOOD COUNT 6273096 ABS SAMIR 5.86 10e9/L 013 Unknown COMPLETE BLOOD COUNT 8287232 ABS LYMPH 2.35 10e9/L 013 Unknown COMPLETE BLOOD COUNT 2198355 ABS MONO 0.85 10e9/L 013 Unknown COMPLETE BLOOD COUNT 0968234 ABS EOS 0.23 10e9/L 013 Unknown COMPLETE BLOOD COUNT 5083192 ABS BASO 0.01 10e9/L 013 Unknown COMPLETE BLOOD COUNT 6425931 RDW-SD 41.2 fL 3 Unknown LIPID GROUP 37679 HDL TEST 35 MG/DL 05/04/2012 Unknown LIPID GROUP 53065 TRIG 236 MG/DL 05/04/2012 Unknown LIPID GROUP 11911 TEST LDL 64 MG/DL 05/04/2012 Unknown LIPID GROUP 45263 CHOL 146 MG/DL 05/04/2012 Unknown LIPID GROUP 58537 RCHOL/HDL 4.17 RATIO 05/04/2012 Unknow n COMPREHENSIVE METABOLIC 99113 AST 23 U/L 2012 Unknown COMPREHENSIVE METABOLIC 81319 ALT 33 IU/L 2012 Unknown COMPREHENSIVE METABOLIC 88935 BUN 16 MG/DL 2012 Unknown COMPREHENSIVE METABOLIC 15004 ALBUMIN 4.8 GM/DL 2012 Unknown COMPREHENSIVE METABOLIC 44502 CHLORIDE 104 MMOL/L 05/04 Unknown COMPREHENSIVE METABOLIC 78236 BILI TOT 0.5 MG/DL 2012 Unknown COMPREHENSIVE METABOLIC 67709 ALK PHOS 70 U/L 2012 Unknown COMPREHENSIVE METABOLIC 05382 SODIUM 138 MMOL/L 05/04 Unknown COMPREHENSIVE METABOLIC 56279 CREATININE 1.08 MG/DL 04/07 Unknown COMPREHENSIVE METABOLIC 79509 CALCIUM 9.7 MG/DL 2012 Unknown COMPREHENSIVE METABOLIC 93770 POTASSIUM 4.4 MMOL/L 05/04 Unknown COMPREHENSIVE METABOLIC 46629 PROT TOT 6.8 GM/DL 2012 Unknown COMPREHENSIVE METABOLIC 36781 Glucose 114 MG/DL 2012 Unknown COMPREHENSIVE METABOLIC 93927 BICARB 27 MMOL/L 2012 Unknown COMPREHENSIVE METABOLIC 00039 ANION GAP 7 MEQ/L 2012 Unknown FREE T4 53581 FREE T4 1.11 NG/DL 05/04/2012 Unknown GFR CALC 3524886 GFR AA >60 ML/MIN 05/04/2012 Unknown GFR CALC 7860630 GFR NON-AA >60 ML/MIN 05/04/2012 Unknown GLYCOSYLATED HEMOGLOBIN TEST 73523 A1C HPLC 83650-6 5.8 % 0 10/29/2011 Unknown COMPREHENSIVE METABOLIC 57407 AST 17 U/L 2011 Unknown COMPREHENSIVE METABOLIC 93458 ALT 21 IU/L 2011 Unknown COMPREHENSIVE METABOLIC 14635 BUN 17 MG/DL 2011 Unknown COMPREHENSIVE METABOLIC 10459 ALBUMIN 4.8 GM/DL 2011 Unknown COMPREHENSIVE METABOLIC 94984 CHLORIDE 106 MMOL/L 10/28 Unknown COMPREHENSIVE METABOLIC 79234 BILI TOT 0.6 MG/DL 2011 Unknown COMPREHENSIVE METABOLIC 94364 ALK PHOS 57 U/L 2011 Unknown COMPREHENSIVE METABOLIC 84971 SODIUM 139 MMOL/L 10/28 Unknown COMPREHENSIVE METABOLIC 91854 CREATININE 1.08 MG/DL 10/05 Unknown COMPREHENSIVE METABOLIC 76932 CALCIUM 9.6 MG/DL 2011 Unknown COMPREHENSIVE METABOLIC 89170 POTASSIUM 4.4 MMOL/L 10/28 Unknown COMPREHENSIVE METABOLIC 63702 PROT TOT 6.9 GM/DL 2011 Unknown COMPREHENSIVE METABOLIC 98082 Glucose 104 MG/DL 2011 Unknown COMPREHENSIVE METABOLIC 04637 BICARB 25 MMOL/L 2011 Unknown COMPREHENSIVE METABOLIC 95778 ANION GAP 8 MEQ/L 2011 Unknown LIPID GROUP 20857 HDL TEST 39 MG/DL 10/29/2011 Unknown LIPID GROUP 66060 TRIG 176 MG/DL 10/29/2011 Unknown LIPID GROUP 83595 TEST LDL 70 MG/DL 10/29/2011 Unknown LIPID GROUP 94859 CHOL 144 MG/DL 10/29/2011 Unknown LIPID GROUP 96577 RCHOL/HDL 3.69 RATIO 10/29/2011 Unknow n GFR CALC 6846496 GFR AA >60 ML/MIN 10/29/2011 Unknown GFR CALC 3414238 GFR NON-AA >60 ML/MIN 10/29/2011 Unknown GFR CALC 5473903 GFR AA >60 ML/MIN 03/14/2011 Unknown GFR CALC 4228385 GFR NON-AA >60 ML/MIN 03/14/2011 Unknown GLYCOSYLATED HEMOGLOBIN TEST 77710 A1C HPLC 51516-9 5.7 % 1 05/15/2010 Unknown COMPREHENSIVE METABOLIC 50627 AST 18 U/L 2010 Unknown COMPREHENSIVE METABOLIC 68401 ALT 25 IU/L 2010 Unknown COMPREHENSIVE METABOLIC 69870 BUN 15 MG/DL 2010 Unknown COMPREHENSIVE METABOLIC 27542 ALBUMIN 4.6 GM/DL 2010 Unknown COMPREHENSIVE METABOLIC 35779 CHLORIDE 107 MMOL/L 03/14 Unknown COMPREHENSIVE METABOLIC 31643 BILI TOT 0.6 MG/DL 2010 Unknown COMPREHENSIVE METABOLIC 75898 ALK PHOS 54 U/L 2010 Unknown COMPREHENSIVE METABOLIC 81727 SODIUM 140 MMOL/L 03/14 Unknown COMPREHENSIVE METABOLIC 68767 CREATININE 1.02 MG/DL 12/2010 Unknown COMPREHENSIVE METABOLIC 86318 CALCIUM 9.4 MG/DL 2010 Unknown COMPREHENSIVE METABOLIC 89041 POTASSIUM 4.6 MMOL/L 03/14 Unknown COMPREHENSIVE METABOLIC 09085 PROT TOT 7.0 GM/DL 2010 Unknown COMPREHENSIVE METABOLIC 91560 Glucose 107 MG/DL 2010 Unknown COMPREHENSIVE METABOLIC 79924 BICARB 28 MMOL/L 2010 Unknown COMPREHENSIVE METABOLIC 62103 ANION GAP 5 MEQ/L 2010 Unknown LIPID GROUP 15194 HDL TEST 39 MG/DL 03/14/2011 Unknown LIPID GROUP 32571 TRIG 157 MG/DL 03/14/2011 Unknown LIPID GROUP 70358 TEST LDL 66 MG/DL 03/14/2011 Unknown LIPID GROUP 55432 CHOL 136 MG/DL 03/14/2011 Unknown LIPID GROUP 27238 RCHOL/HDL 3.49 RATIO 03/14/2011 Unknow n GFR CALC 3873744 GFR AA >60 ML/MIN 11/11/2010 Unknown GFR CALC 7745898 GFR NON-AA >60 ML/MIN 11/11/2010 Unknown LIPID GROUP 09289 HDL TEST 39 MG/DL 11/11/2010 Unknown LIPID GROUP 21725 TRIG 212 MG/DL 11/11/2010 Unknown LIPID GROUP 50814 TEST LDL 67 MG/DL 11/11/2010 Unknown LIPID GROUP 89101 CHOL 148 MG/DL 11/11/2010 Unknown LIPID GROUP 43618 RCHOL/HDL 3.79 RATIO 11/11/2010 Unknow n COMPREHENSIVE METABOLIC 77176 AST 17 U/L 2010 Unknown COMPREHENSIVE METABOLIC 73759 ALT 21 IU/L 2010 Unknown COMPREHENSIVE METABOLIC 46544 BUN 16 MG/DL 2010 Unknown COMPREHENSIVE METABOLIC 13157 ALBUMIN 4.6 GM/DL 2010 Unknown COMPREHENSIVE METABOLIC 26677 CHLORIDE 106 MMOL/L 11/11 Unknown COMPREHENSIVE METABOLIC 45483 BILI TOT 0.5 MG/DL 2010 Unknown COMPREHENSIVE METABOLIC 98304 ALK PHOS 61 U/L 2010 Unknown COMPREHENSIVE METABOLIC 14457 SODIUM 139 MMOL/L 11/11 Unknown COMPREHENSIVE METABOLIC 01346 CREATININE 1.00 MG/DL 11/2010 Unknown COMPREHENSIVE METABOLIC 69636 CALCIUM 9.5 MG/DL 2010 Unknown COMPREHENSIVE METABOLIC 09172 POTASSIUM 4.5 MMOL/L 11/11 Unknown COMPREHENSIVE METABOLIC 66216 PROT TOT 6.9 GM/DL 2010 Unknown COMPREHENSIVE METABOLIC 24449 Glucose 111 MG/DL 2010 Unknown COMPREHENSIVE METABOLIC 49340 BICARB 26 MMOL/L 2010 Unknown COMPREHENSIVE METABOLIC 96507 ANION GAP 7 MEQ/L 2010 Unknown HEMOGLOBIN A1C (GLYCOSYLATED) 43915 A1C HPLC 63377-2 5.6 % 07/24/2010 Unknown GFR CALC 9326271 GFR AA >60 ML/MIN 07/23/2010 Unknown GFR CALC 0980585 GFR NON-AA >60 ML/MIN 07/23/2010 Unknown COMPREHENSIVE METABOLIC 04870 AST 19 U/L 2010 Unknown COMPREHENSIVE METABOLIC 40574 ALT 33 IU/L 2010 Unknown COMPREHENSIVE METABOLIC 31619 BUN 14 MG/DL 2010 Unknown COMPREHENSIVE METABOLIC 65502 ALBUMIN 4.7 GM/DL 2010 Unknown COMPREHENSIVE METABOLIC 50958 CHLORIDE 107 MMOL/L 07/23 Unknown COMPREHENSIVE METABOLIC 62865 BILI TOT 0.4 MG/DL 2010 Unknown COMPREHENSIVE METABOLIC 82879 ALK PHOS 80 U/L 2010 Unknown COMPREHENSIVE METABOLIC 77336 SODIUM 141 MMOL/L 07/23 Unknown COMPREHENSIVE METABOLIC 97945 CREATININE 0.97 MG/DL 07/05 Unknown COMPREHENSIVE METABOLIC 37891 CALCIUM 9.5 MG/DL 2010 Unknown COMPREHENSIVE METABOLIC 73106 POTASSIUM 4.1 MMOL/L 07/23 Unknown COMPREHENSIVE METABOLIC 81990 PROT TOT 6.8 GM/DL 2010 Unknown COMPREHENSIVE METABOLIC 78334 Glucose 120 MG/DL 2010 Unknown COMPREHENSIVE METABOLIC 00323 BICARB 26 MMOL/L 2010 Unknown COMPREHENSIVE METABOLIC 45447 ANION GAP 8 MEQ/L 2010 Unknown LIPID GROUP 05057 HDL TEST 41 MG/DL 07/23/2010 Unknown LIPID GROUP 57589 TRIG 175 MG/DL 07/23/2010 Unknown LIPID GROUP 42929 TEST LDL 72 MG/DL 07/23/2010 Unknown LIPID GROUP 48030 CHOL 148 MG/DL 07/23/2010 Unknown LIPID GROUP 75382 RCHOL/HDL 3.61 RATIO 07/23/2010 Unknow n PSA FREE AND TOTAL 12352|95973 % FREE PSA FOOTNOTE % 011 Unknown PSA FREE AND TOTAL 22140|92695 XPSA TOTAL 0.83 NG/ML 011 Unknown PSA FREE AND TOTAL 42910|80728 XPSA FREE 0.13 NG/ML 04/26/19 11 Unknown VITAMIN D TOTAL (25 HYDROXY) 73320 VIT D TOTL 26 NG/ML 04/22/2010 Unknown TESTOSTERONE TOTAL 97916 TESTOS TO 387 NG/DL 04/19/2010 Unknown GFR CALC 4816032 GFR AA >60 ML/MIN 04/19/2010 Unknown GFR CALC 3081924 GFR NON-AA >60 ML/MIN 04/19/2010 Unknown COMPLETE BLOOD COUNT 45314 WBC 7.0 10e9/L 04/19/19 11 Unknown COMPLETE BLOOD COUNT 73209 RBC 5.07 10e12/L 2010 Unknown COMPLETE BLOOD COUNT 62171 HGB 15.6 g/dL 1 Unknown COMPLETE BLOOD COUNT 65428 HCT DET 46.2 % 1 Unknown COMPLETE BLOOD COUNT 88933 MCV 91.1 fL 1 Unknown COMPLETE BLOOD COUNT 16351 MCH 30.8 pg 1 Unknown COMPLETE BLOOD COUNT 12351 MCHC 33.8 g/dL 1 Unknown COMPLETE BLOOD COUNT 66099 PLT 205 10e9/L 04/19/19 11 Unknown COMPLETE BLOOD COUNT 60997 MPV 11.1 fL 1 Unknown COMPLETE BLOOD COUNT 97407 SAMIR % 62.4 % 1 Unknown COMPLETE BLOOD COUNT 15442 LY % 28.5 % 1 Unknown COMPLETE BLOOD COUNT 22134 MON % 6.9 % 1 Unknown COMPLETE BLOOD COUNT 91941 EOS % 2.1 % 1 Unknown COMPLETE BLOOD COUNT 97506 BASO % 0.1 % 1 Unknown COMPLETE BLOOD COUNT 05326 RDW 13.4 % 1 Unknown COMPLETE BLOOD COUNT 25678 ABS SAMIR 4.37 10e9/L 011 Unknown COMPLETE BLOOD COUNT 66347 ABS LYMPH 2.00 10e9/L 011 Unknown COMPLETE BLOOD COUNT 14359 ABS MONO 0.48 10e9/L 011 Unknown COMPLETE BLOOD COUNT 99487 ABS EOS 0.15 10e9/L 011 Unknown COMPLETE BLOOD COUNT 34613 ABS BASO 0.01 10e9/L 011 Unknown COMPLETE BLOOD COUNT 34046 RDW-SD 43.8 fL 1 Unknown LIPID GROUP 09071 HDL TEST 39 MG/DL 04/19/2010 Unknown LIPID GROUP 27631 TRIG 244 MG/DL 04/19/2010 Unknown LIPID GROUP 27384 TEST LDL 168 MG/DL 04/19/2010 Unknown LIPID GROUP 77289 CHOL 256 MG/DL 04/19/2010 Unknown LIPID GROUP 13772 RCHOL/HDL 6.56 RATIO 04/19/2010 Unknow n COMPREHENSIVE METABOLIC 90593 AST 28 U/L 2010 Unknown COMPREHENSIVE METABOLIC 56717 ALT 46 IU/L 2010 Unknown COMPREHENSIVE METABOLIC 96872 BUN 14 MG/DL 2010 Unknown COMPREHENSIVE METABOLIC 05122 ALBUMIN 4.9 GM/DL 2010 Unknown COMPREHENSIVE METABOLIC 49147 CHLORIDE 104 MMOL/L 04/19 Unknown COMPREHENSIVE METABOLIC 14723 BILI TOT 0.8 MG/DL 2010 Unknown COMPREHENSIVE METABOLIC 52282 ALK PHOS 71 U/L 2010 Unknown COMPREHENSIVE METABOLIC 62747 SODIUM 139 MMOL/L 04/19 Unknown COMPREHENSIVE METABOLIC 95126 CREATININE 1.06 MG/DL 04/06 Unknown COMPREHENSIVE METABOLIC 51735 CALCIUM 9.9 MG/DL 2010 Unknown COMPREHENSIVE METABOLIC 63570 POTASSIUM 4.3 MMOL/L 04/19 Unknown COMPREHENSIVE METABOLIC 02046 PROT TOT 7.2 GM/DL 2010 Unknown COMPREHENSIVE METABOLIC 64326 Glucose 99 MG/DL 2010 Unknown COMPREHENSIVE METABOLIC 40118 BICARB 28 MMOL/L 2010 Unknown COMPREHENSIVE METABOLIC 43595 ANION GAP 7 MEQ/L 2010 Unknown FREE T4 57728 FREE T4 1.26 NG/DL 04/19/2010 Unknown Procedures Procedure Codes Date ROUTINE VENIPUNCTURE CPT-4: 04077 05/24/2019 COMPREHEN METABOLIC PANEL CPT-4: 03224 05/24/2019 A1C HPLC CPT-4: 93457 05/24/2019 FLU VACC PRSV FREE INC ANTIG 65 AND OLDER CPT-4: 18924 01/26/2019 FLU VACC PRSV FREE INC ANTIG 65 AND OLDER CPT-4: 11051 01/26/2019 ADMIN INFLUENZA VIRUS VAC CPT-4: G0008 01/26/2019 ROUTINE VENIPUNCTURE CPT-4: 50750 01/26/2019 COMPREHEN METABOLIC PANEL CPT-4: 23231 01/26/2019 COMPLETE CBC W/AUTO DIFF WBC CPT-4: 07666 01/26/2019 LIPID PANEL CPT-4: 95528 01/26/2019 A1C HPLC CPT-4: 31160 01/26/2019 ROUTINE VENIPUNCTURE CPT-4: 84801 09/30/2018 METABOLIC PANEL TOTAL CA CPT-4: 39844 09/30/2018 URINALYSIS NONAUTO W/O SCOPE CPT-4: 19302 08/19/2018 URINE CULTURE/ COLONY COUNT CPT-4: 75383 08/19/2018 MICROALBUMIN QUANTITATIVE CPT-4: 25630 08/19/2018 ROUTINE VENIPUNCTURE CPT-4: 54605 08/16/2018 ASSAY THYROID STIM HORMONE CPT-4: 68014 08/16/2018 COMPREHEN METABOLIC PANEL CPT-4: 19899 08/16/2018 COMPLETE CBC W/AUTO DIFF WBC CPT-4: 11408 08/16/2018 LIPID PANEL CPT-4: 27487 08/16/2018 A1C HPLC CPT-4: 31167 08/16/2018 LIPID PANEL CPT-4: 87057 05/05/2018 COMPREHEN METABOLIC PANEL CPT-4: 77334 05/05/2018 ROUTINE VENIPUNCTURE CPT-4: 47001 05/05/2018 A1C HPLC CPT-4: 90194 05/05/2018 COMPLETE CBC W/AUTO DIFF WBC CPT-4: 15262 05/05/2018 ASSAY THYROID STIM HORMONE CPT-4: 17921 05/05/2018 MICROALBUMIN QUANTITATIVE CPT-4: 70925 01/19/2018 PRESCRIP TRANSMIT VIA ERX SY CPT-4: G8553 01/19/2018 ROUTINE VENIPUNCTURE CPT-4: 69334 01/13/2018 COMPREHEN METABOLIC PANEL CPT-4: 11551 01/13/2018 A1C HPLC CPT-4: 94325 01/13/2018 LIPID PANEL CPT-4: 27243 01/13/2018 ASSAY OF PSA TOTAL CPT-4: 53022 01/13/2018 ASSAY THYROID STIM HORMONE CPT-4: 64549 01/13/2018 ROUTINE VENIPUNCTURE CPT-4: 11720 10/06/2017 COMPREHEN METABOLIC PANEL CPT-4: 89854 10/06/2017 COMPLETE CBC W/AUTO DIFF WBC CPT-4: 11095 10/06/2017 LIPID PANEL CPT-4: 58536 10/06/2017 A1C HPLC CPT-4: 55588 10/06/2017 VITAMIN B-12 CPT-4: 97776 10/06/2017 DESTRUCT PREMALG LESION (Cryosurgery) CPT-4: 11236 DESTRUCT PREMALG LES 2-14 CPT-4: 90905 04/23/2017 PRESCRIP TRANSMIT VIA ERX SY CPT-4: G8553 03/11/2017 ROUTINE VENIPUNCTURE CPT-4: 93624 03/05/2017 ASSAY OF FREE THYROXINE CPT-4: 38627 03/05/2017 ASSAY THYROID STIM HORMONE CPT-4: 93564 03/05/2017 COMPREHEN METABOLIC PANEL CPT-4: 05559 03/05/2017 COMPLETE CBC W/AUTO DIFF WBC CPT-4: 47318 03/05/2017 LIPID PANEL CPT-4: 04647 03/05/2017 A1C HPLC CPT-4: 84649 03/05/2017 ROUTINE VENIPUNCTURE CPT-4: 26044 06/16/2016 ASSAY OF FREE THYROXINE CPT-4: 80817 06/16/2016 ASSAY THYROID STIM HORMONE CPT-4: 53330 06/16/2016 COMPREHEN METABOLIC PANEL CPT-4: 75253 06/16/2016 COMPLETE CBC W/AUTO DIFF WBC CPT-4: 62299 06/16/2016 LIPID PANEL CPT-4: 90899 06/16/2016 A1C HPLC CPT-4: 02333 06/16/2016 ROUTINE VENIPUNCTURE CPT-4: 83008 03/06/2016 ASSAY OF FREE THYROXINE CPT-4: 08760 03/06/2016 ASSAY THYROID STIM HORMONE CPT-4: 16875 03/06/2016 COMPREHEN METABOLIC PANEL CPT-4: 93850 03/06/2016 COMPLETE CBC W/AUTO DIFF WBC CPT-4: 91444 03/06/2016 LIPID PANEL CPT-4: 14538 03/06/2016 A1C HPLC CPT-4: 89666 03/06/2016 PRESCRIP TRANSMIT VIA ERX SY CPT-4: G8553 09/10/2015 PNEUMOCOCCAL VACC 23 ROSANNE IM CPT-4: 62986 09/06/2015 ADMIN PNEUMOCOCCAL VACCINE CPT-4: G0009 09/06/2015 ROUTINE VENIPUNCTURE CPT-4: 43287 08/31/2015 COMPREHEN METABOLIC PANEL CPT-4: 24500 08/31/2015 COMPLETE CBC W/AUTO DIFF WBC CPT-4: 04544 08/31/2015 LIPID PANEL CPT-4: 20891 08/31/2015 ASSAY OF PSA TOTAL CPT-4: 27028 08/31/2015 A1C HPLC CPT-4: 28915 08/31/2015 ASSAY OF FREE THYROXINE CPT-4: 54201 08/31/2015 ASSAY THYROID STIM HORMONE CPT-4: 22696 08/31/2015 PRESCRIP TRANSMIT VIA ERX SY CPT-4: G8553 06/29/2015 FLU VACC PRSV FREE INC ANTIG 65 AND OLDER CPT-4: 62484 01/17/2015 PNEUMOCOCCAL VACC 13 ROSANNE IM CPT-4: 32834 01/17/2015 ADMIN INFLUENZA VIRUS VAC CPT-4: G0008 01/17/2015 ADMIN PNEUMOCOCCAL VACCINE CPT-4: G0009 01/17/2015 DESTRUCT PREMALG LESION (Cryosurgery) CPT-4: 87097 PRESCRIP TRANSMIT VIA ERX SY CPT-4: G8553 01/17/2015 ROUTINE VENIPUNCTURE CPT-4: 86038 01/12/2015 COMPREHEN METABOLIC PANEL CPT-4: 67685 01/12/2015 COMPLETE CBC W/AUTO DIFF WBC CPT-4: 11730 01/12/2015 LIPID PANEL CPT-4: 90784 01/12/2015 A1C HPLC CPT-4: 07580 01/12/2015 DESTRUCT PREMALG LESION (Cryosurgery) CPT-4: 44984 ROUTINE VENIPUNCTURE CPT-4: 34506 08/15/2014 COMPREHEN METABOLIC PANEL CPT-4: 01006 08/15/2014 COMPLETE CBC W/AUTO DIFF WBC CPT-4: 71028 08/15/2014 LIPID PANEL CPT-4: 85680 08/15/2014 A1C HPLC CPT-4: 22968 08/15/2014 ASSAY OF PSA TOTAL CPT-4: 90690 08/15/2014 ASSAY OF FREE THYROXINE CPT-4: 74588 08/15/2014 ASSAY THYROID STIM HORMONE CPT-4: 84109 08/15/2014 ROUTINE VENIPUNCTURE CPT-4: 10050 12/14/2013 ASSAY OF FREE THYROXINE CPT-4: 06625 12/14/2013 ASSAY THYROID STIM HORMONE CPT-4: 69931 12/14/2013 COMPREHEN METABOLIC PANEL CPT-4: 52482 12/14/2013 COMPLETE CBC W/AUTO DIFF WBC CPT-4: 73105 12/14/2013 LIPID PANEL CPT-4: 58642 12/14/2013 A1C HPLC CPT-4: 09794 12/14/2013 ROUTINE VENIPUNCTURE CPT-4: 18182 06/08/2013 ASSAY OF FREE THYROXINE CPT-4: 69013 06/08/2013 ASSAY THYROID STIM HORMONE CPT-4: 08267 06/08/2013 COMPREHEN METABOLIC PANEL CPT-4: 55887 06/08/2013 COMPLETE CBC W/AUTO DIFF WBC CPT-4: 77525 06/08/2013 LIPID PANEL CPT-4: 73765 06/08/2013 A1C HPLC CPT-4: 55104 06/08/2013 ROUTINE VENIPUNCTURE CPT-4: 54801 11/11/2012 COMPREHEN METABOLIC PANEL CPT-4: 84823 11/11/2012 COMPLETE CBC W/AUTO DIFF WBC CPT-4: 77929 11/11/2012 LIPID PANEL CPT-4: 18508 11/11/2012 A1C GLYCOSYLATED HEMOGLOBIN TEST CPT-4: 16239 013 ASSAY THYROID STIM HORMONE CPT-4: 53797 11/11/2012 ROUTINE VENIPUNCTURE CPT-4: 62648 05/04/2012 ASSAY OF FREE THYROXINE CPT-4: 71817 05/04/2012 ASSAY THYROID STIM HORMONE CPT-4: 19239 05/04/2012 COMPREHEN METABOLIC PANEL CPT-4: 16973 05/04/2012 COMPLETE CBC W/AUTO DIFF WBC CPT-4: 88483 05/04/2012 LIPID PANEL CPT-4: 60287 05/04/2012 DESTRUCT PREMALG LESION (Cryosurgery) CPT-4: 28309 DESTRUCT PREMALG LES 2-14 CPT-4: 23693 03/02/2012 ROUTINE VENIPUNCTURE CPT-4: 23575 10/29/2011 COMPREHEN METABOLIC PANEL CPT-4: 58807 10/29/2011 LIPID PANEL CPT-4: 59177 10/29/2011 A1C GLYCOSYLATED HEMOGLOBIN TEST CPT-4: 55189 012 ROUTINE VENIPUNCTURE CPT-4: 14654 07/29/2011 COMPREHEN METABOLIC PANEL CPT-4: 63132 07/29/2011 LIPID PANEL CPT-4: 88523 07/29/2011 A1C GLYCOSYLATED HEMOGLOBIN TEST CPT-4: 08059 012 ROUTINE VENIPUNCTURE CPT-4: 14547 03/14/2011 COMPREHEN METABOLIC PANEL CPT-4: 50884 03/14/2011 LIPID PANEL CPT-4: 11120 03/14/2011 A1C GLYCOSYLATED HEMOGLOBIN TEST CPT-4: 81979 011 ROUTINE VENIPUNCTURE CPT-4: 59624 11/11/2010 COMPREHEN METABOLIC PANEL CPT-4: 78528 11/11/2010 LIPID PANEL CPT-4: 08850 11/11/2010 URINE CULTURE/ COLONY COUNT CPT-4: 33974 11/11/2010 URINALYSIS NONAUTO W/O SCOPE CPT-4: 91792 10/29/2010 URINE CULTURE/ COLONY COUNT CPT-4: 18178 10/29/2010 LIPID PANEL CPT-4: 07282 07/23/2010 COMPREHEN METABOLIC PANEL CPT-4: 11568 07/23/2010 ROUTINE VENIPUNCTURE CPT-4: 74138 07/23/2010 ROUTINE VENIPUNCTURE CPT-4: 15194 04/26/2010 PSA FREE AND TOTAL CPT-4: 27738|65740 04/26/2010 OCCULT BLOOD FECES CPT-4: 90197 04/24/2010 ROUTINE VENIPUNCTURE CPT-4: 94279 04/19/2010 COMPLETE CBC W/AUTO DIFF WBC CPT-4: 95571 04/19/2010 COMPREHEN METABOLIC PANEL CPT-4: 35678 04/19/2010 LIPID PANEL CPT-4: 95790 04/19/2010 TESTOSTERONE TOTAL - MALE CPT-4: 74839 04/19/2010 ASSAY THYROID STIM HORMONE CPT-4: 43350 04/19/2010 ASSAY OF FREE THYROXINE CPT-4: 12229 04/19/2010 VITAMIN D TOTAL (25 HYDROXY) CPT-4: 96002 04/19/2010 Vital Signs Date Vital 06/02/2019 Blood Pressure 1: 132/80 Code: 8480-6 BMI: 29.5 Code: 80383-7 Heart Rate 1: 64 bpm Height: 6'3" [...] 1: 112/70 Code: 8480-6 BMI: 28.9 Code: 48596-4 Heart Rate 1: 60 bpm Height: 6'3" Respiratory Rate: 20 bpm SpO2: 95% Tempera ture: 36.6 (C) / 97.9 (F) Weight: 231 lbs 01/19/2018 Blood Pressure 1: 150/82 Code: 8480-6 Heart Rate 1: 63 bpm Respiratory Rate: 18 bpm SpO2: 98% Temperature: 36.0 (C) / 96.8 (F) We ight: 225 lbs 10/15/2017 Blood Pressure 1: 126/82 Code: 8480-6 BMI: 27.9 Code: 34538-9 Heart Rate 1: 64 bpm Height: 6'3" Respiratory Rate: 20 bpm SpO2: 96% Tempera ture: 36.7 (C) / 98.1 (F) Weight: 223 lbs 04/23/2017 Blood Pressure 1: 136/74 Code: 8480-6 BMI: 28.7 Code: 67487-0 Heart Rate 1: 76 bpm Height: 6'3" Respiratory Rate: 20 bpm Temperature: 37 .0 (C) / 98.6 (F) Weight: 230 lbs 03/11/2017 Blood Pressure 1: 136/66 Code: 8480-6 BMI: 28.6 Code: 46068-8 Heart Rate 1: 60 bpm Height: 6'3" Respiratory Rate: 20 bpm Temperature: 36 .7 (C) / 98.1 (F) Weight: 229 lbs 07/09/2016 Blood Pressure 1: 132/80 Code: 8480-6 BMI: 27.7 Code: 38646-7 Heart Rate 1: 64 bpm Height: 6'3" Respiratory Rate: 20 bpm SpO2: 96% Tempera ture: 36.9 (C) / 98.4 (F) Weight: 222 lbs 03/10/2016 Blood Pressure 1: 134/78 Code: 8480-6 BMI: 28.5 Code: 10068-8 Heart Rate 1: 60 bpm Height: 6'3" Respiratory Rate: 20 bpm SpO2: 96% Tempera ture: 36.7 (C) / 98.1 (F) Weight: 228 lbs 09/12/2015 Blood Pressure 1: 13678 Code: 8480-6 Heart Rate 1: 84 bpm Height: Respiratory Rate: 24 bpm SpO2: 97% Temperature: 36.4 (C) / 97.6 (F) We ight: 09/10/2015 Blood Pressure 1: 124/76 Code: 8480-6 BMI: 28.5 Code: 90399-5 Heart Rate 1: 76 bpm Height: 6'3" Respiratory Rate: 24 bpm SpO2: 97% Tempera ture: 36.4 (C) / 97.6 (F) Weight: 228 lbs 09/06/2015 Blood Pressure 1: 124/82 Code: 8480-6 BMI: 29.0 Code: 92754-2 Heart Rate 1: 66 bpm Height: 6'3" Respiratory Rate: 20 bpm SpO2: 97% Tempera ture: 36.4 (C) / 97.6 (F) Weight: 232 lbs 06/29/2015 Blood Pressure 1: 124/82 Code: 8480-6 Heart Rate 1: 88 bpm Height: Respiratory Rate: 20 bpm Temperature: 36.7 (C) / 98.1 (F) Weight: 01/17/2015 Blood Pressure 1: 124/78 Code: 8480-6 BMI: 27.7 Code: 13884-8 Heart Rate 1: 76 bpm Height: 6'3" Respiratory Rate: 20 bpm Temperature: 36 .6 (C) / 97.8 (F) Weight: 222 lbs 09/19/2014 Blood Pressure 1: 128/80 Code: 8480-6 BMI: 27.4 Code: 44515-9 Heart Rate 1: 64 bpm Height: 6'3" Respiratory Rate: 20 bpm Temperature: 36 .4 (C) / 97.6 (F) Weight: 219 lbs 10/17/2013 Blood Pressure 1: 116/70 Code: 8480-6 Heart Rate 1: 88 bpm Respiratory Rate: 20 bpm Temperature: 36.9 (C) / 98.4 (F) Weight: 220 lbs 09/23/2013 Blood Pressure 1: 124/80 Code: 8480-6 BMI: 28.7 Code: 64507-4 Heart Rate 1: 76 bpm Height: 6'3" Respiratory Rate: 20 bpm Temperature: 36 .8 (C) / 98.2 (F) Weight: 230 lbs 07/22/2013 Blood Pressure 1: 128/70 Code: 8480-6 art Rate 1: 78 bpm 06/20/2013 Blood Pressure 1: 144/86 Code: 8480-6 BMI: 28.7 Code: 89573-8 Heart Rate 1: 92 bpm Height: 6'3" Respiratory Rate: 20 bpm Temperature: 36 .4 (C) / 97.6 (F) Weight: 230 lbs 11/25/2012 Blood Pressure 1: 128/80 Code: 8480-6 BMI: 27.5 Code: 10602-5 Heart Rate 1: 92 bpm Height: 6'3" Respiratory Rate: 20 bpm Temperature: 36 .8 (C) / 98.3 (F) Weight: 220 lbs 08/27/2012 Blood Pressure 1: 142/80 Code: 8480-6 BMI: 27.7 Code: 02241-5 Heart Rate 1: 76 bpm Height: 6'3" Respiratory Rate: 20 bpm Temperature: 36 .8 (C) / 98.3 (F) Weight: 222 lbs 05/11/2012 Blood Pressure 1: 136/80 Code: 8480-6 BMI: 27.7 Code: 31117-2 Heart Rate 1: 76 bpm Height: 6'3" Respiratory Rate: 20 bpm Temperature: 36 .8 (C) / 98.3 (F) Weight: 222 lbs 03/02/2012 Blood Pressure 1: 136/70 Code: 8480-6 BMI: 28.0 Code: 82857-1 Heart Rate 1: 80 bpm Height: 6'3" Respiratory Rate: 20 bpm Temperature: 36 .6 (C) / 97.8 (F) Weight: 224 lbs 12/11/2011 Blood Pressure 1: 142/80 Code: 8480-6 BMI: 27.1 Code: 45758-7 Heart Rate 1: 84 bpm Height: 6'3" Respiratory Rate: 20 bpm Temperature: 36 .9 (C) / 98.4 (F) Weight: 217 lbs 08/14/2011 Blood Pressure 1: 130/82 Code: 8480-6 He art Rate 1: 64 bpm 07/29/2011 Blood Pressure 1: 132/64 Code: 8480-6 BMI: 26.7 Code: 15317-4 Heart Rate 1: 72 bpm Height: 6'3" [...] 1: 142/88 Code: 8480-6 BMI: 26.4 Code: 81044-8 Heart Rate 1: 80 bpm Height: 6'3" [...] labs Encounters Encounter Performer Location Codes Date ([id number]) OFFICE/OUTPATIENT VISIT EST Diagnosis: Essential (primary) hypertension[ICD10: I10] Diagnosis: Gastro-esophageal reflux disease without esophagitis[ICD10: K21.9] Diagnosis: Type 2 diabetes mellitus with hyperglycemia[ICD10: E11.65] Najma MCARTHUR Matilda [employer] CPT-4: 48374 06/02/2019 ([id number]) NURSE/OUTPATIENT VISIT EST Diagnosis: Type 2 diabetes mellitus without complications[ICD10: E11.9] Diagnosis: Essential (primary) hypertension[ICD10: I10] Diagnosis: Mixed hyperlipidemia[ICD10: E78.2] Najma GODINEZ [employer] CPT-4: 37588 05/24/2019 ([id number]) OFFICE/OUTPATIENT VISIT EST Diagnosis: Essential (primary) hypertension[ICD10: I10] Diagnosis: Type 2 diabetes mellitus without complications[ICD10: E11.9] Diagnosis: Mixed hyperlipidemia[ICD10: E78.2] Najma GODINEZ [employer] CPT-4: 66363 01/31/2019 ([id number]) NURSE/OUTPATIENT VISIT EST Diagnosis: Mixed hyperlipidemia[ICD10: E78.2] Diagnosis: Type 2 diabetes mellitus without complications[ICD10: E11.9] Diagnosis: Essential (primary) hypertension[ICD10: I10] Diagnosis: Chronic kidney disease, unspecified[ICD10: N18.9] Najma MCARTHUR Matilda [employer] CPT-4: 23929 01/26/2019 ([id number]) NURSE/OUTPATIENT VISIT EST Diagnosis: Chronic kidney disease, unspecified[ICD10: N18.9] Diagnosis: Essential (primary) hypertension[ICD10: I10] Najma MCARTHUR AmeenaMatilde [employer] CPT-4: 74099 09/30/2018 ([id number]) OFFICE/OUTPATIENT VISIT EST Diagnosis: Essential (primary) hypertension[ICD10: I10] Diagnosis: Type 2 diabetes mellitus without complications[ICD10: E11.9] Diagnosis: Mixed hyperlipidemia[ICD10: E78.2] Diagnosis: Unspecified kidney failure[ICD10: N19] Najma OG [employer] CPT-4: 70446 08/19/2018 ([id number]) NURSE/OUTPATIENT VISIT EST Diagnosis: Essential (primary) hypertension[ICD10: I10] Diagnosis: Type 1 diabetes mellitus with unspecified complications[ICD10: E10.8] Diagnosis: Mixed hyperlipidemia[ICD10: E78.2] Najma GODINEZ [employer] CPT-4: 51613 08/16/2018 ([id number]) OFFICE/OUTPATIENT VISIT EST Diagnosis: Essential (primary) hypertension[ICD10: I10] Diagnosis: Type 2 diabetes mellitus without complications[ICD10: E11.9] Diagnosis: Mixed hyperlipidemia[ICD10: E78.2] Najma GODINEZ [employer] CPT-4: 02498 05/10/2018 ([id number]) NURSE/OUTPATIENT VISIT EST Diagnosis: Essential (primary) hypertension[ICD10: I10] Diagnosis: Mixed hyperlipidemia[ICD10: E78.2] Diagnosis: Type 1 diabetes mellitus with unspecified complications[ICD10: E10.8] Najma OG [employer] CPT-4: 69055 05/05/2018 ([id number]) OFFICE/OUTPATIENT VISIT EST Diagnosis: Type 2 diabetes mellitus without complications[ICD10: E11.9] Diagnosis: Mixed hyperlipidemia[ICD10: E78.2] Diagnosis: Nicotine dependence, unspecified, uncomplicated[ICD10: F17.200] Diagnosis: Essential (primary) hypertension[ICD10: I10] Najma OG [employer] CPT-4: 99020 01/19/2018 ([id number]) NURSE/OUTPATIENT VISIT EST Diagnosis: Type 1 diabetes mellitus with unspecified complications[ICD10: E10.8] Diagnosis: Essential (primary) hypertension[ICD10: I10] Diagnosis: Male erectile disorder[ICD10: F52.21] Diagnosis: Encounter for screening for malignant neoplasm of prostate[ICD10: Z12.5] Najma OG [facility] CPT-4: 44600 01/13/2018 ([id number]) OFFICE/OUTPATIENT VISIT EST Diagnosis: Type 2 diabetes mellitus without complications[ICD10: E11.9] Diagnosis: Essential (primary) hypertension[ICD10: I10] Diagnosis: Mixed hyperlipidemia[ICD10: E78.2] Najma OG [facility] CPT-4: 29190 10/15/2017 ([id number]) NURSE/OUTPATIENT VISIT EST Diagnosis: Type 2 diabetes mellitus without complications[ICD10: E11.9] Diagnosis: Mixed hyperlipidemia[ICD10: E78.2] Diagnosis: Essential (primary) hypertension[ICD10: I10] Diagnosis: Glossitis[ICD10: K14.0] Najma THAKKAR [facility] CPT-4: 62414 10/06/2017 ([id number]) OFFICE/OUTPATIENT VISIT EST Diagnosis: Type 2 diabetes mellitus without complications[ICD10: E11.9] Diagnosis: Mixed hyperlipidemia[ICD10: E78.2] Diagnosis: Essential (primary) hypertension[ICD10: I10] Najma OG [facility] CPT-4: 40090 03/11/2017 ([id number]) OFFICE/OUTPATIENT VISIT EST Diagnosis: Type 1 diabetes mellitus with unspecified complications[ICD10: E10.8] Diagnosis: Mixed hyperlipidemia[ICD10: E78.2] Diagnosis: Essential (primary) hypertension[ICD10: I10] Diagnosis: Other fatigue[ICD10: R53.83] Najma OG [facility] CPT-4: 64407 03/05/2017 ([id number]) OFFICE/OUTPATIENT VISIT EST Diagnosis: Type 2 diabetes mellitus without complications[ICD10: E11.9] Diagnosis: Mixed hyperlipidemia[ICD10: E78.2] Diagnosis: Essential (primary) hypertension[ICD10: I10] Diagnosis: Nicotine dependence, unspecified, uncomplicated[ICD10: F17.200] Najma OG DO [facility] CPT-4: 29986 07/09/2016 ([id number]) OFFICE/OUTPATIENT VISIT EST Diagnosis: Type 1 diabetes mellitus with unspecified complications[ICD10: E10.8] Diagnosis: Mixed hyperlipidemia[ICD10: E78.2] Diagnosis: Essential (primary) hypertension[ICD10: I10] Najma OG [facility] CPT-4: 39967 06/16/2016 ([id number]) OFFICE/OUTPATIENT VISIT EST Diagnosis: Type 2 diabetes mellitus without complications[ICD10: E11.9] Diagnosis: Mixed hyperlipidemia[ICD10: E78.2] Diagnosis: Essential (primary) hypertension[ICD10: I10] Najma OG [facility] CPT-4: 37821 03/10/2016 ([id number]) OFFICE/OUTPATIENT VISIT EST Diagnosis: Type 1 diabetes mellitus with unspecified complications[ICD10: E10.8] Diagnosis: Mixed hyperlipidemia[ICD10: E78.2] Diagnosis: Essential (primary) hypertension[ICD10: I10] Najma OG [facility] CPT-4: 55616 03/06/2016 ([id number]) OFFICE/OUTPATIENT VISIT EST Diagnosis: Bitten or stung by nonvenomous insect and other nonvenomous arthropods, subsequent encounter[ICD10: W57.XXXD] Diagnosis: Insect bite (nonvenomous), right thigh, subsequent encounter[ICD10: S70.361D] Barbara OG [facility] CPT-4: 32686 11/2015 ([id number]) OFFICE/OUTPATIENT VISIT EST Diagnosis: Bitten or stung by nonvenomous insect and other nonvenomous arthropods, initial encounter[ICD10: W57.XXXA] Diagnosis: Insect bite (nonvenomous), right thigh, initial encounter[ICD10: S70.361A] Barbara Grey [employer] [facility] CPT-4: 38221 09/2015 ([id number]) OFFICE/OUTPATIENT VISIT EST Diagnosis: Mixed hyperlipidemia[ICD10: E78.2] Diagnosis: Essential (primary) hypertension[ICD10: I10] Diagnosis: Type 2 diabetes mellitus without complications[ICD10: E11.9] Diagnosis: Encounter for immunization[ICD10: Z23] Diagnosis: Encounter for screening for malignant neoplasm of colon[ICD10: Z12.11] Diagnosis: Abnormal weight gain[ICD10: R63.5] Barbara Brower MAREVELINA GRETCHEN Matilda OG [facility] CPT-4: 60025 09/06/2015 ([id number]) OFFICE/OUTPATIENT VISIT EST Diagnosis: Type 2 diabetes mellitus without complications[ICD10: E11.9] Diagnosis: Mixed hyperlipidemia[ICD10: E78.2] Diagnosis: Essential (primary) hypertension[ICD10: I10] Diagnosis: Encounter for screening for malignant neoplasm of prostate[ICD10: Z12.5] Diagnosis: Other fatigue[ICD10: R53.83] Najma MCARTHUR Matilda OG [facility] CPT-4: 45032 08/31/2015 OFFICE/OUTPATIENT VISIT EST Diagnosis: Diarrhea, unspecified[ICD10: R19.7] Henrietta MCCOY Matilda LONG [facility] CPT-4: 64521 06/29/2015 OFFICE/OUTPATIENT VISIT EST Diagnosis: PNEUMOCOCCAL VACCINE[ICD10: Z23] Diagnosis: FLU VACCINE[ICD10: Z23] Diagnosis: Essential (primary) hypertension[ICD10: I10] Diagnosis: Mixed hyperlipidemia[ICD10: E78.2] Diagnosis: Type 1 diabetes mellitus with unspecified complications[ICD10: E10.8] Diagnosis: Actinic keratosis[ICD10: L57.0] Najma MCARTHUR AmeenaMatilde KAHLIL [facility] CPT-4: 35186 01/17/2015 ([id number]) OFFICE/OUTPATIENT VISIT EST Diagnosis: Type 2 diabetes mellitus without complications[ICD10: E11.9] Diagnosis: Impaired fasting glucose[ICD10: R73.01] Diagnosis: Mixed hyperlipidemia[ICD10: E78.2] Diagnosis: Essential (primary) hypertension[ICD10: I10] Najma MCARTHUR AmeenaMatilde MERCEDES [facility] CPT-4: 23962 01/12/2015 ([id number]) OFFICE/OUTPATIENT VISIT EST Diagnosis: - I - HYPERLIPIDEMIA NEC/NOS[ICD9: 272.4] Diagnosis: HYPERTENSION[ICD9: 401.9] Diagnosis: DM W/O COMPLICATION TYPE II[ICD9: 250.00] Diagnosis: ACTINIC KERATOSIS[ICD9: 702.0] Najma MCARTHUR Ameena Matilde MERCEDES [facility] CPT-4: 23635 09/19/2014 ([id number]) OFFICE/OUTPATIENT VISIT EST Diagnosis: HYPERLIPIDEMIA NEC/NOS[ICD9: 272.4] Diagnosis: HYPERTENSION[ICD9: 401.9] Diagnosis: IMPAIRED FASTING GLUCOSE[ICD9: 790.21] Diagnosis: MALAISE AND FATIGUE[ICD9: 780.79] Najma OG [facility] CPT-4: 87420 08/15/2014 ([id number]) OFFICE/OUTPATIENT VISIT EST Diagnosis: HYPERLIPIDEMIA NEC/NOS[ICD9: 272.4] Diagnosis: HYPERTENSION[ICD9: 401.9] Diagnosis: IMPAIRED FASTING GLUCOSE[ICD9: 790.21] Najma LONG [facility] CPT-4: 20157 12/14/2013 ([id number]) OFFICE/OUTPATIENT VISIT EST Diagnosis: Post herpetic neuralgia[ICD9: 053.19] Najma OG [facility] CPT-4: 09888 10/17/2013 OFFICE/OUTPATIENT VISIT EST Diagnosis: Shingles[ICD9: 053.9] Diagnosis: Post herpetic neuralgia[ICD9: 053.19] Jeanie Navarro CLAUDE LONG [facility] CPT-4: 90478 09/23/2013 ([id number]) OFFICE/OUTPATIENT VISIT EST Diagnosis: HYPERTENSION[ICD9: 401.9] Diagnosis: HYPERLIPIDEMIA NEC/NOS[ICD9: 272.4] Diagnosis: IMPAIRED FASTING GLUCOSE[ICD9: 790.21] Najma LNOG [facility] CPT-4: 09692 06/20/2013 ([id number]) OFFICE/OUTPATIENT VISIT EST Diagnosis: HYPERLIPIDEMIA NEC/NOS[ICD9: 272.4] Diagnosis: MALAISE AND FATIGUE[ICD9: 780.79] Diagnosis: ROUTINE MEDICAL EXAM[ICD9: V70.0] Diagnosis: HYPERTENSION[ICD9: 401.9] Diagnosis: IMPAIRED FASTING GLUCOSE[ICD9: 790.21] Najma LONG [facility] CPT-4: 33368 06/08/2013 ([id number]) OFFICE/OUTPATIENT VISIT EST Diagnosis: HYPERLIPIDEMIA NEC/NOS[ICD9: 272.4] Diagnosis: HYPERTENSION[ICD9: 401.9] Diagnosis: IMPAIRED FASTING GLUCOSE[ICD9: 790.21] Diagnosis: DIARRHEA[ICD9: 787.91] Najma Grey BRITTNI Stallings [facility] CPT-4: 54451 11/25/2012 ([id number]) OFFICE/OUTPATIENT VISIT EST Diagnosis: HYPERLIPIDEMIA NEC/NOS[ICD9: 272.4] Diagnosis: HYPERTENSION[ICD9: 401.9] Diagnosis: IMPAIRED FASTING GLUCOSE[ICD9: 790.21] Diagnosis: MALAISE AND FATIGUE[ICD9: 780.79] Najma Jenkins AmeenaMatilde MERCEDES [facility] CPT-4: 74293 11/11/2012 OFFICE/OUTPATIENT VISIT EST Diagnosis: Fungal dermatitis[ICD9: 111.9] Diagnosis: Dry skin dermatitis[ICD9: 692.89] Henrietta Jenkins AmeenaMatilde MERCEDES [facility] CPT-4: 15019 08/27/2012 ([id number]) OFFICE/OUTPATIENT VISIT EST Diagnosis: HYPERTENSION[ICD9: 401.9] Diagnosis: HYPERLIPIDEMIA NEC/NOS[ICD9: 272.4] Najma MCCOY AmeenaMatilde MERCEDES [facility] CPT-4: 36855 05/11/2012 ([id number]) OFFICE/OUTPATIENT VISIT EST Diagnosis: HYPERLIPIDEMIA NEC/NOS[ICD9: 272.4] Diagnosis: HYPERTENSION[ICD9: 401.9] Diagnosis: ROUTINE MEDICAL EXAM[ICD9: V70.0] Najma Jenkins AmeenaMatilde MERCEDES [facility] CPT-4: 22754 05/04/2012 ([id number]) OFFICE/OUTPATIENT VISIT EST Diagnosis: HYPERTENSION[ICD9: 401.9] Diagnosis: HYPERLIPIDEMIA NEC/NOS[ICD9: 272.4] Diagnosis: IMPAIRED FASTING GLUCOSE[ICD9: 790.21] Najma CHAPMAN AmeenaMatilde KAHLIL [facility] CPT-4: 75295 12/11/2011 ([id number]) OFFICE/OUTPATIENT VISIT EST Diagnosis: HYPERLIPIDEMIA NEC/NOS[ICD9: 272.4] Diagnosis: HYPERTENSION[ICD9: 401.9] Diagnosis: IMPAIRED FASTING GLUCOSE[ICD9: 790.21] Najma LONGER [facility] CPT-4: 14746 10/29/2011 ([id number]) OFFICE/OUTPATIENT VISIT EST Diagnosis: HYPERTENSION[ICD9: 401.9] Najma ZARATER [facility] CPT-4: 14593 08/14/2011 ([id number]) OFFICE/OUTPATIENT VISIT EST Diagnosis: HYPERTENSION[ICD9: 401.9] Diagnosis: IMPAIRED FASTING GLUCOSE[ICD9: 790.21] Najma LONGER [facility] CPT-4: 67507 07/29/2011 ([id number]) OFFICE/OUTPATIENT VISIT EST Diagnosis: HYPERTENSION[ICD9: 401.9] Najma ZARATER [facility] CPT-4: 31014 07/23/2011 ([id number]) OFFICE/OUTPATIENT VISIT EST Diagnosis: HYPERTENSION[ICD9: 401.9] Najma ZARATER [facility] CPT-4: 01894 06/24/2011 OFFICE/OUTPATIENT VISIT EST Diagnosis: HYPERTENSION[ICD9: 401.9] Najma ZARATER [facility] CPT-4: 05939 05/20/2011 OFFICE/OUTPATIENT VISIT EST Diagnosis: HYPERTENSION[ICD9: 401.9] Najma ZARATER [facility] CPT-4: 30225 04/15/2011 OFFICE/OUTPATIENT VISIT EST Diagnosis: HYPERLIPIDEMIA NEC/NOS[ICD9: 272.4] Diagnosis: IMPAIRED FASTING GLUCOSE[ICD9: 790.21] Najma LONGER [facility] CPT-4: 08753 03/18/2011 ([id number]) OFFICE/OUTPATIENT VISIT EST Najma OG DO [facility] CPT-4: 15785 07/30/2010 ([id number]) PREV VISIT, EST, AGE 40-64 Najma GO DO [facility] CPT-4: 79855 04/24/2010 Plan of Care Planned Activity Notes [...] : E11.65 06/02/2019 Appointment: Najma Og WPtel: [address] [place], [place] [phone] [place] LAB 05/24/2019 Visit Diagnosis Plan: Type [...] : I10 01/31/2019 Appointment: Najma Og WPtel: [address] [place], [place] [phone] US FOLLOW UP 01/31/2019 Appointment: Najma Og WPtel: [address] [place] [phone] US LAB 01/26/2019 Appointment: Najma Og WPtel: [address] [place] [phone] US LAB 09/30/2018 Visit Diagnosis Plan: Unspecified [...] : E11.9 08/19/2018 Appointment: Najma Og WPtel: [address] [place] [phone] FOLLOW UP 08/19/2018 Appointment: Najma Og WPtel: [address] [place], [place] [phone] [place] LAB 08/16/2018 Visit Diagnosis Plan: Type [...] : I10 05/10/2018 Appointment: Najma Og WPtel: [address] [place] [phone] FOLLOW UP 05/10/2018 Patient Education: Low Back Pain Exercises: Illustration Completed 05/10/2018 Patient Education: Low Back Pain Exercises Completed 05/10/2018 Appointment: Najma Og WPtel: [address] [place], [place] [phone] [place] LAB 05/05/2018 Visit Diagnosis Plan: Type [...] : E78.2 01/19/2018 Appointment: Najma Og WPtel: [address] [place] [address] FOLLOW UP 01/19/2018 Patient Education: Patient Medication Summary Completed 01/19/2018 Appointment: Najma Og WPtel: [address] [place], [place] [phone] US LAB 01/13/2018 Patient Education: Patient Medication [...] : E78.2 10/15/2017 Appointment: Najma Og WPtel: [address] [place] [address] FOLLOW UP 10/15/2017 Patient Education: Patient Medication Summary Completed 10/15/2017 Appointment: Najma Og WPtel: [address] [place], [place] [phone] LAB 10/06/2017 Patient Education: Patient Medication Summary Completed 10/06/2017 Visit Diagnosis Plan: Actinic keratosis Discussion: Cr yotherapy as above ICD-9 : 702.0 ICD-10 : L57.0 04/23/2017 Appointment: Najma Og WPtel: [address] [place] [address] OFFICE SURGERY 04/23/2017 Patient Education: Patient Medication [...] : E11.9 03/11/2017 Appointment: Najma Og WPtel: [address] [place], [place] [phone] US FOLLOW UP 03/11/2017 Patient Education: Patient Medication Summary Completed 03/11/2017 Appointment: Najma Og WPtel: [address] [place] [address] LAB 03/05/2017 Patient Education: Patient Medication Summary [...] : E78.2 07/09/2016 Appointment: Najma Og WPtel: [address] [place] [phone] US 07/08 lm ~sl 07/09 confirmed~sl FOLLOW UP 08/2016 Patient Education: Patient Medication Summary Completed 07/09/2016 Appointment: Najma Og WPtel: [address] [place] [phone] US LAB 06/16/2016 Patient Education: Patient Medication Summary Completed 06/16/2016 Visit Plan: Lab discussed Accuchecks maribel ly Lifestyle change for 3mos then check CMP, HbA1C in 3mos Has had flu and pneumonia shot 03/10/2016 Appointment: Najma Og WPtel: [phone] [place], [place] [phone] 03/06 confirmed `sl FOLLOW UP 03/10/2016 Patient Education: Patient Medication Summary Completed 03/10/2016 Appointment: Najma Og WPtel: [address] [place] [phone] US LAB 03/06/2016 Patient Education: Patient Medication Summary Completed 03/06/2016 Referral: Donavon Keller WPtel: [address] [place] [address] [employer] [id number] [place] Referral Completed 10/22/2015 Visit Plan: Tick bite area looks much be tter Continue current rxs and close monitoring Follow up if any new symptoms or worsening appearance 09/12/2015 Appointment: Barbara Brower [address] [place], [place] [phone] 09/10 confirmed~sl FOLLOW UP 09/12/2015 Patient Education: Patient Medication Summary Completed 09/12/2015 Visit Plan: Cover as above 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 topical steroids to calm down the inflammation(suspect most of redness is due to histamine response vs infection) Monitor closely Follow up in 2 days to recheck 09/10/2015 Appointment: Barbara Brower [address] [place] [address] ACUTE ILLNESS 09/10/2015 Patient Education: Patient Medication [...] shingles vaccine 09/06/2015 Appointment: Barbara Brower [address] [place], [place] [phone] FOLLOW UP 09/06/2015 Patient Education: Patient Medication Summary Completed 09/06/2015 Care Plan: Referral Order SNOMED-CT : [id number] Pending 09/06/2015 Appointment: Najma Og WPtel: [address] [place] [phone] [place] LAB 08/31/2015 Patient Education: Patient Medication [...] to UC/ER. 06/29/2015 Appointment: Henrietta Lubin WPtel: [address] [place], [place] [phone] ACUTE ILLNESS 06/29/2015 Patient Education: Patient Medication Summary Completed 06/29/2015 Visit Plan: Lab discussed Will keep meds the same Discussed diet/exercise at length Cryotherapy as above to AKs of arms Flu and Prevnar 13 given Trial of revatio per patient request for ED--warned of no nitrates Recheck 4mos 01/17/2015 Appointment: Najma Og WPtel: [address] [place] [address] 01/16 confirmed~sl FOLLOW UP 01/17/2015 Patient Education: Patient Medication Summary Completed 01/17/2015 Appointment: Najma Og WPtel: [address] [place] [phone] US LAB 01/12/2015 Patient Education: Patient Medication Summary Completed 01/12/2015 Visit Plan: Lab discussed Start accuchec ks daily Cryotherapy as above 09/19/2014 Appointment: Najma Og WPtel: [address] [place] [phone] 09/18 confirmed -mf FOLLOW UP 09/19/2014 Patient Education: Patient Medication Summary Completed 09/19/2014 Appointment: Najma Og WPtel: [address] [place] [phone] US LAB 08/15/2014 Patient Education: Patient Medication Summary Completed 08/15/2014 Appointment: Najma Og WPtel: [address] [place], [place] [phone] ACUTE ILLNESS 12/14/2013 Patient Education: Patient Medication Summary Completed 12/14/2013 Visit Plan: Patient using tylenol prn pa in Discussed possible shingles shot for booster in 9-12mos 10/17/2013 Appointment: Najma Og WPtel: [address] [place], [place] [phone] FOLLOW UP 10/17/2013 Patient Education: Patient Medication Summary Completed 10/17/2013 Appointment: Jeanie Briceño WPtel: [address] [place], [place] [id number] ACUTE ILLNESS 09/23/2013 Patient Education: Patient Medication Summary Completed 09/23/2013 Appointment: Najma Og WPtel: [address] [place], [place] [id number] BP CHECK 07/22/2013 Patient Education: Patient Medication Summary Completed 07/22/2013 Visit Plan: Lab discussed Discussed swit arun amlodopine to beta slim to see if helps with tremor BP check in 1mo 06/20/2013 Appointment: Najma Og WPtel: [address] [place] [address] 06/17 no answer FOLLOW UP 06/20/2013 Patient Education: Patient Medication Summary Completed 06/20/2013 Appointment: Najma Og WPtel: [address] [place], [place] [phone] LAB 06/08/2013 Patient Education: Patient Medication Summary Completed 06/08/2013 Visit Plan: BRAT diet and yogurt and gat orade Lab discussed Continue current meds Spot checks on BS 11/25/2012 Appointment: Najma Og WPtel: [address] [place], [place] [phone] 11/24 FOLLOW UP 11/25/2012 Patient Education: Patient Medication Summary Completed 11/25/2012 Appointment: Najma Og WPtel: [address] [place], [place] [phone] [place] LAB 11/11/2012 Patient Education: Patient Medication Summary Completed 11/11/2012 Appointment: Henrietta Lubin WPtel: [address] [place], [place] [id number] WORK IN 08/27/2012 Patient Education: Patient Medication Summary Completed 08/27/2012 Visit Plan: Pt going to get new home BP moniter Continue crestor and restart fish oil and will check fasting lab in 6mos Lab results discussed 05/11/2012 Appointment: Najma Og WPtel: [address] [place], [place] [id number] 05/10 FOLLOW UP 05/11/2012 Patient Education: Patient Medication Summary Completed 05/11/2012 Appointment: Najma Og WPtel: [address] [place], [place] [id number] [place] LAB 05/04/2012 Patient Education: Patient Medication Summary Completed 05/04/2012 Visit Plan: 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 and forehead 03/02/2012 Appointment: Najma Og WPtel: [address] [place], [place] [id number] 03/01 OFFICE SURGERY 03/02/2012 Patient Education: Patient Medication Summary Completed 03/02/2012 Visit Plan: Labs discussed--recheck lab end of Nov/ of Mar Continue current meds and continue to moniter BS daily and BP 1-2 times a week Plan on cryotherapy this fall so can wear longsleeves after procedure See urology 12/11/2011 Appointment: Najma Og WPtel: [address] [place], [place] [id number] FOLLOW UP 12/11/2011 Patient Education: Patient Medication Summary Completed 12/11/2011 Appointment: Najma Og WPtel: [address] [place], [place] [id number] [place] LAB 10/29/2011 Patient Education: Patient Medication Summary Completed 10/29/2011 Appointment: Najma Og WPtel: [address] [place], [place] [id number] BP CHECK 08/14/2011 Patient Education: Patient Medication Summary Completed 08/14/2011 Appointment: Najma Ogtel: [address] [place] [address] ACUTE ILLNESS 07/29/2011 Patient Education: Patient Medication Summary Completed 07/29/2011 Appointment: Najma Og WPtel: [address] [place] [address] BP CHECK 07/23/2011 Patient Education: Patient Medication Summary Completed 07/23/2011 Appointment: Najma Ogtel: [address] [place] [address] BP CHECK 06/24/2011 Patient Education: Patient Medication Summary Completed 06/24/2011 Appointment: Najma Ogtel: [address] [place] [address] BP CHECK 05/20/2011 Patient Education: Patient Medication Summary Completed 05/20/2011 Appointment: Najma Ogtel: [address] [place] [address] BP CHECK 04/29/2011 Patient Education: Patient Medication Summary Completed 04/29/2011 Appointment: Najma Ogtel: [address] [place] [address] BP CHECK 04/15/2011 Patient Education: Patient Medication Summary Completed 04/15/2011 Visit Plan: Continue current meds Add fi sh oil 1gm daily Glucometer given to use for accuchecks prn 03/18/2011 Appointment: Najma Ogtel: [address] [place] [address] FOLLOW UP 03/18/2011 Patient Education: Patient Medication Summary Completed 03/18/2011 Appointment: Najma Ogtel: [address] [place] [address] [place] LAB 03/14/2011 Patient Education: Patient Medication Summary Completed 03/14/2011 Appointment: Najma Og WPtel: [address] [place] [phone] LAB 11/11/2010 Appointment: Najma Og WPtel: [address] [place], [place] [phone] [place] UA 11/11/2010 Patient Education: Patient Medication Summary Completed 11/11/2010 Appointment: Najma Og WPtel: [address] [place], [place] [phone] [place] LAB 10/29/2010 Patient Education: Patient Medication Summary Completed 10/29/2010 Appointment: Najma Og WPtel: [address] [place], [place] [phone] FOLLOW UP 07/30/2010 Patient Education: Patient Medication Summary Completed 07/30/2010 Appointment: Najma Og WPtel: [address] [place] [phone] LAB 07/23/2010 Patient Education: Patient Medication Summary Completed 07/23/2010 Appointment: Najma Og WPtel: [address] [place] [phone] LAB 04/26/2010 Patient Education: Patient Medication Summary Completed 04/26/2010 Visit Plan: Add PSA to lab Restart Crest or at 10mg daily Trial of Wellbutrin to aid in smoking cessation Check Lipids and LFTs in 3mos 04/24/2010 Appointment: Najma Og WPtel: [address] [place] [phone] [place] FOLLOW UP 04/24/2010 Patient Education: Patient Medication Summary Completed 04/24/2010 Appointment: Najma Og WPtel: [address] [place], [place] [phone] [place] LAB 04/19/2010 Patient Education: Patient Medication Summary Completed 04/19/2010 Referral: Donavon Keller WPtel: [address] [place] [address] Drive [id number] [place] Referral Completed Instructions Comment . Lab [...] conservative + labs. CBC & CMP at [facility] Discussed needed oral hydration (preferably [...]
--- OUTSIDE RECORDS SUMMARY | 2019-10-14 22:48 | XMS REPORT | CCD ---
Author Author Inocente Og D.O. Organization [facility] Address [address] [place] [address] Phone Care Team Providers Care Integrated Marketing Manager Name Role Phone Najma Og D.O. PP Unavailable CCM Unavailable Summary Purpose Interface Exchange Insurance Providers Payer name Policy type / Coverage type Covered constitution party ID Effective Begin Date Effective End Date [employer] MEDICARE Medicare Part B [id number] Unknown [facility] Medicare Part B [id number] Un known Family history Father Diagnosis Age At Onset Diabetes mellitus Type 2 Unknown Myocardial infarction Unknown Brother Diagnosis Age At Onset Diabetes mellitus Type 2 Unknown Mother Diagnosis Age At Onset Osteoarthritis Unknown Cerebrovascular disease Unknown Social History Social History Element Codes Description Effective Dates Tobacco history SNOMED CT: 255468345 Never smoker 12/21/2014 Marital status Unknown 07/30/2010 [...] for screening for malignant neoplasm of pros osmmers ICD-9: V76.44 ICD-10: Z12.5 08/30/2015 Active Male [...] D3 25 mcg (1,000 unit) capsule RxNorm: 234493 1 Capsule(s) Oral two times a day 06/02/2019 No Stop Date Active turmeric 400 mg capsule RxNorm: 1 Capsule(s) Oral QD 06/02/2019 No Stop Date Active Fish Oil 120 mg-180 mg-500 mg capsule RxNorm: 2 Capsule(s) Ora l QD 06/02/2019 No Stop Date Active 16.2 mg-0.1037 mg-0.0194 mg tablet RxNorm: 0799371 1 Tablet(s) Oral four times a day as needed abdominal pain/diarrhea 06/02/2019 No Stop D ate Active fenofibrate micronized 134 mg capsule RxNorm: 639917 1 Capsule(s) Oral QD for triglycerides 04/14/2019 07/13/2019 Active amlodipine 5 mg tablet RxNorm: 237785 TAKE 1 TABLET BY MOUTH ON CE DAILY 03/22/2019 06/19/2019 Active metformin ER 500 mg tablet,extended release 24 hr RxNorm: 86 0975 TAKE 1 TABLET BY MOUTH ONCE DAILY 03/15/2019 No Stop Date Active propranolol ER 80 mg capsule,24 hr,extended release RxNorm: 568924 TAKE 1 CAPSULE BY MOUTH ONCE DAILY 03/15/2019 No Stop Date Active amlodipine 5 mg tablet RxNorm: 493913 1 Tablet(s) PO QD 12/27/2018 Inactive fenofibrate micronized 134 mg capsule RxNorm: 510034 TA KE 1 CAPSULE BY MOUTH ONCE DAILY FOR TRIGLYCERIDES 10/11/2018 04/13/2019 Inactive amlodipine 5 mg tablet RxNorm: 688533 1 Tablet(s) PO QD 09/30/2018 Inactive metformin ER 500 mg tablet,extended release 24 hr RxNorm: 86 0975 TAKE 1 TABLET BY MOUTH ONCE DAILY 09/21/2018 03/14/2019 Inactive propranolol ER 80 mg capsule,24 hr,extended release RxNorm: 971661 TAKE 1 CAPSULE BY MOUTH ONCE DAILY 09/21/2018 03/14/2019 Inactive amlodipine 5 mg tablet RxNorm: 389767 1 Tablet(s) PO QD 08/25/2018 Inactive amlodipine 5 mg tablet RxNorm: 412594 1 Tablet(s) PO QD 08/25/2018 Inactive lisinopril 40 mg tablet RxNorm: 319246 TAKE 1 TABLET BY MOUTH O NCE DAILY 07/21/2018 08/24/2018 Inactive fenofibrate micronized 134 mg capsule RxNorm: 459636 TA KE 1 CAPSULE BY MOUTH ONCE DAILY FOR TRIGLYCERIDES 07/12/2018 10/10/2018 Inactive propranolol ER 80 mg capsule,24 hr,extended release RxNorm: 576162 TAKE 1 CAPSULE BY MOUTH ONCE DAILY 06/21/2018 09/20/2018 Inactive lisinopril 40 mg tablet RxNorm: 989520 TAKE 1 TABLET BY MOUTH O NCE DAILY 04/26/2018 07/20/2018 Inactive metformin ER 500 mg tablet,extended release 24 hr RxNorm: 556493 1 Tablet(s) QD 03/31/2018 09/20/2018 Inactive lisinopril 40 mg tablet RxNorm: 153712 TAKE 1 TABLET BY MOUTH O NCE DAILY 01/28/2018 04/25/2018 Inactive Vitamin D3 5,000 unit tablet RxNorm: 828223 1 Tablet(s) PO QD 01/1908/18/2018 Inactive fenofibrate micronized 134 mg capsule RxNorm: 409350 1 Capsule(s) PO QD for triglycerides 01/19/2018 07/11/2018 Inactive metformin ER 500 mg tablet,extended release 24 hr RxNorm: 104817 1 Tablet(s) QD 12/31/2017 03/30/2018 Inactive metformin ER 500 mg tablet,extended release 24 hr RxNorm: 779667 Tablet(s) 12/30/2017 12/30/2017 Inactive propranolol ER 80 mg capsule,24 hr,extended release RxNorm: 417500 1 Capsule(s) PO QD 12/17/2017 06/14/2018 Inactive metformin ER 500 mg tablet,extended release 24 hr RxNorm: 86 0975 1 Tablet(s) PO QD DUE FOR LABS AND APPT 12/02/2017 12/30/2017 Inactive Crestor 10 mg tablet RxNorm: 011012 TAKE ONE TABLET BY MOUTH ON CE DAILY 11/01/2017 01/18/2018 Inactive lisinopril 40 mg tablet RxNorm: 511878 TAKE ONE TABLET BY MOUTH ONCE DAILY [...] ER 80 mg capsule,24 hr,extended release RxNorm: 989756 1 Capsule(s) PO QD DUE FOR APPT 09/08/2017 12/17/2017 Inactive Crestor 10 mg tablet RxNorm: 658020 1 Tablet(s) PO QD T CHELSI ONE TABLET BY MOUTH DAILY 03/11/2017 09/06/2017 Inactive propranolol ER 80 mg capsule,24 hr,extended release RxNorm: 173028 1 Capsule(s) PO QD TAKE ONE CAPSULE BY MOUTH DAILY - REPLACES AMLODOPINE 03/11/2017 09/08/2017 Inactive metformin ER 500 mg tablet,extended release 24 hr RxNorm: 86 0975 1 Tablet(s) PO QD 03/11/2017 09/08/2017 Inactive lisinopril 40 mg tablet RxNorm: 769540 1 Tablet(s) PO QD 03/11/2017 0 09/06/2017 Inactive lisinopril 40 mg tablet RxNorm: 818562 1 Tablet(s) PO QD 02/16/2017 1 05/11/2016 Inactive metformin ER 500 mg tablet,extended release 24 hr RxNorm: 86 0975 1 Tablet(s) PO QD Due for labs and follow up before further refills 02/16/2017 017 Inactive propranolol ER 80 mg capsule,24 hr,extended release RxNorm: 520253 Capsule(s) TAKE ONE CAPSULE BY MOUTH DAILY - REPLACES AMLODOPINE 11/19/20162016 Inactive lisinopril 40 mg tablet RxNorm: 945625 1 Tablet(s) PO QD 11/17/2016 1 04/18/2016 Inactive metformin ER 500 mg tablet,extended release 24 hr RxNorm: 86 0975 1 Tablet(s) PO QD 11/17/2016 02/16/2017 Inactive lisinopril 40 mg tablet RxNorm: 875840 1 Tablet(s) PO Q D TAKE ONE TABLET BY MOUTH DAILY 08/19/2016 11/17/2016 Inactive metformin ER 500 mg tablet,extended release 24 hr RxNorm: 86 0975 Tablet(s) TAKE ONE TABLET BY MOUTH DAILY 08/19/2016 11/16/2016 Inactive propranolol ER 80 mg capsule,24 hr,extended release RxNorm: 785878 Capsule(s) TAKE ONE CAPSULE BY MOUTH DAILY - REPLACES AMLODOPINE 08/19/20162016 Inactive Crestor 10 mg tablet RxNorm: 158231 TAKE ONE TABLET BY MOUTH DAILY 06/16/2016 03/10/2017 Inactive lisinopril 40 mg tablet RxNorm: 208659 1 Tablet(s) PO Q D TAKE ONE TABLET BY MOUTH DAILY 05/23/2016 08/18/2016 Inactive metformin ER 500 mg tablet,extended release 24 hr RxNorm: 86 0975 TAKE ONE TABLET BY MOUTH DAILY 05/23/2016 08/19/2016 Inactive propranolol ER 80 mg capsule,24 hr,extended release RxNorm: 471443 TAKE ONE CAPSULE BY MOUTH DAILY - REPLACES AMLODOPINE 05/23/2016 08/19/2016 [place] [facility] Crestor 10 mg tablet RxNorm: 257717 TAKE ONE TABLET BY MOUTH DAILY 03/31/2016 06/15/2016 Inactive metformin ER 500 mg tablet,extended release 24 hr RxNorm: 86 0975 TAKE ONE TABLET BY MOUTH DAILY 02/19/2016 05/22/2016 Inactive propranolol ER 80 mg capsule,24 hr,extended release RxNorm: 271980 TAKE ONE CAPSULE BY MOUTH DAILY - REPLACES AMLODOPINE 11/23/2015 05/20/2016 [place] [facility] metformin ER 500 mg tablet,extended release 24 hr RxNorm: 86 0975 TAKE ONE TABLET BY MOUTH DAILY 11/08/2015 02/05/2016 Inactive Bactroban Nasal 2 % ointment RxNorm: 700180 Apply topic ally to affected area twice daily 09/10/2015 03/09/2016 Inactive Vibramycin 100 mg capsule RxNorm: 405701 1 Capsule(s) PO BID 201509/23/2015 Inactive lisinopril 40 mg tablet RxNorm: 682300 1 Tablet(s) PO Q D TAKE ONE TABLET BY MOUTH DAILY 08/27/2015 02/22/2016 Inactive metformin ER 500 mg tablet,extended release 24 hr RxNorm: 86 0975 TAKE ONE TABLET BY MOUTH DAILY 08/06/2015 11/03/2015 Inactive Levsin/SL 0.125 mg sublingual tablet RxNorm: 4461426 1 T ablet(s) SL Q4H as needed for stomach cramps 06/29/2015 07/03/2015 Inactive lisinopril 40 mg tablet RxNorm: 975977 Tablet(s) TAKE ONE TABLE T BY MOUTH DAILY 06/07/2015 08/26/2015 Inactive propranolol ER 80 mg capsule,24 hr,extended release RxNorm: 892881 TAKE ONE CAPSULE BY MOUTH DAILY - REPLACES AMLODOPINE 05/30/2015 11/22/[address] [place] [facility] metformin ER 500 mg tablet,extended release 24 hr RxNorm: 86 0975 1 Tablet(s) PO QD 05/10/2015 08/05/2015 Inactive Crestor 10 mg tablet RxNorm: 139278 TAKE ONE TABLET BY MOUTH DAILY 04/18/2015 10/14/2015 Inactive metformin ER 500 mg tablet,extended release 24 hr RxNorm: 86 0975 TAKE ONE TABLET BY MOUTH DAILY 02/07/2015 05/10/2015 Inactive sildenafil 20 mg tablet RxNorm: 856812 1 Tablet(s) PO QD 01/17/2015 1 04/17/2014 Inactive propranolol ER 80 mg capsule,24 hr,extended release RxNorm: 303427 1 Capsule(s) PO QD replaces amlodopine 11/28/2014 05/26/2015 Inactive [[facility] -- BIN:[id number], PCN: [id number], Group: [id number], ID# [id number], Process claim through [employer], for questions: . THIS IS NOT INSURANCE.] lisinopril 40 mg tablet RxNorm: 609127 TAKE ONE TABLET BY MOUTH DAILY 11/16/2014 06/07/2015 Inactive lisinopril 40 mg tablet RxNorm: 817802 1 Tablet(s) PO QD 08/21/2014 0 11/15/2014 Inactive [AttnRPh: Saving apply/adjudicate RxGRP: [id number] RxBIN:[id number] RxPCN: ID#:[id number]] lisinopril 40 mg tablet RxNorm: 169478 1 Tablet(s) PO Q D NEEDS SEEN FOR APPOINTMENT 07/14/2014 08/21/2014 Inactive [AttnRPh: Saving apply/adjudicate RxGRP:SG20 RxBIN:[id number] RxPCN: ID#:[id number]] Crestor 10 mg tablet RxNorm: 357175 TAKE ONE TABLET BY MOUTH EV 07/06/2014 01/01/2015 Inactive metformin ER 500 mg tablet,extended release 24 hr RxNorm: 86 0975 1 Tablet(s) QD TAKE ONE TABLET BY MOUTH ONCE A DAY 06/09/2014 12/05/2014 Inactive propranolol ER 80 mg capsule,24 hr,extended release RxNorm: 061770 1 Capsule(s) PO QD replaces amlodopine 06/05/2014 11/28/2014 Inactive [[facility] -- BIN:[id number], PCN: [id number], Group: [id number], ID# [id number], Process claim through [employer], for questions: . THIS IS NOT INSURANCE.] propranolol ER 80 mg capsule,24 hr,extended release RxNorm: 182719 1 Capsule(s) PO QD replaces amlodopine 03/07/2014 06/05/2014 Inactive [[facility] -- BIN:[id number], PCN: [id number], Group: [id number], ID# [id number], Process claim through [employer], for questions: . THIS IS NOT INSURANCE.] metformin ER 500 mg tablet,extended release 24 hr RxNorm: 86 0975 TAKE ONE TABLET BY MOUTH ONCE A DAY 12/15/2013 06/09/2014 Inactive propranolol ER 80 mg capsule,24 hr,extended release RxNorm: 137085 1 Capsule(s) PO QD replaces amlodopine 12/09/2013 03/07/2014 Inactive [[facility] -- BIN:[id number], PCN: [id number], Group: [id number], ID# [id number], Process claim through [employer], for questions: . THIS IS NOT INSURANCE.] acyclovir 800 mg tablet RxNorm: 077633 1 Tablet(s) PO QID 09/23/2013 09/29/2013 Inactive gabapentin 300 mg capsule RxNorm: 014153 1 Capsule(s) PO BID 201310/07/2013 Inactive metformin ER 500 mg tablet,extended release 24 hr RxNorm: 86 0975 1 Tablet(s) PO QD 09/19/2013 12/14/2013 Inactive propranolol ER 80 mg capsule,24 hr,extended release RxNorm: 708285 1 Capsule(s) PO QD replaces amlodopine 09/15/2013 12/09/2013 Inactive metformin ER 500 mg 24 hr tablet,extended release RxNorm: 86 0975 1 Tablet(s) PO QD 09/15/2013 09/18/2013 Inactive lisinopril 40 mg tablet RxNorm: 107797 1 Tablet(s) PO QD 07/19/2013 0 07/14/2014 Inactive Crestor 10 mg tablet RxNorm: 631981 Tablet(s) PO TAKE O NE TABLET BY MOUTH EVERY DAY 07/12/2013 07/05/2014 Inactive propranolol ER 80 mg capsule,24 hr,extended release RxNorm: 692869 1 Capsule(s) PO QD replaces amlodopine 06/20/2013 09/15/2013 Inactive triamcinolone acetonide 0.1 % topical ointment RxNorm: 62980 36 Application TOP BID 06/20/2013 06/26/2013 Inactive Crestor 10 mg tablet RxNorm: 440397 1 Tablet(s) PO QD 04/18/201310/2013 Inactive Viagra 100 mg tablet RxNorm: 668789 1 Tablet(s) PO as directed 01/0508/18/2018 Inactive TAKE ONE TABLET BY MOUTH DIRECTED Crestor 10 mg tablet RxNorm: 033817 1 Tablet(s) PO QD 01/17/201304/06 Inactive metformin ER 500 mg tablet,extended release 24 hr RxNorm: 86 0975 1 Tablet(s) PO QD TAKE ONE TABLET BY MOUTH EVERY DAY 12/23/2012 09/15/2013 Inactive triamcinolone acetonide 0.1 % topical ointment RxNorm: 62793 36 Application TOP BID 08/27/2012 09/02/2012 Inactive ketoconazole 2 % topical cream RxNorm: 636674 1 Application TOP QAM 08/27/2012 09/02/2012 Inactive lisinopril 40 mg tablet RxNorm: 441696 1 Tablet(s) PO QD 07/21/2012 0 07/15/2013 Inactive Crestor 10 mg tablet RxNorm: 486080 1 Tablet(s) PO QD 07/21/201210/04 Inactive amlodipine 10 mg tablet RxNorm: 332062 1 Tablet(s) PO QHS 07/21/2012 07/15/2013 Inactive metformin ER 500 mg tablet,extended release 24 hr RxNorm: 86 0977 Tablet(s) PO TAKE ONE TABLET BY MOUTH EVERY DAY 03/31/2012 12/22/2012 Inactive lisinopril 40 mg tablet RxNorm: 186607 1 Tablet(s) PO QD 07/29/2011 0 07/20/2012 Inactive amlodipine 10 mg tablet RxNorm: 816116 1 Tablet(s) PO QHS 07/29/2011 07/20/2012 Inactive amlodipine 10 mg Tab RxNorm: 518241 1 Tablet(s) PO QHS 07/29/2011 Inactive Viagra 100 mg tablet RxNorm: 107218 1 Tablet(s) PO as directed 07/0601/24/2013 Inactive TAKE ONE TABLET BY MOUTH DIRECTED Crestor 10 mg tablet RxNorm: 122260 1 Tablet(s) PO QD 07/29/201107/05 Inactive Norvasc 5 mg Tab RxNorm: 613287 1 Tablet(s) PO QD 07/16/2011 07/28/19 12 Inactive Norvasc 5 mg Tab RxNorm: 621291 1 Tablet(s) PO QD 06/26/2011 07/15/19 12 Inactive lisinopril 40 mg Tab RxNorm: 589439 1 Tablet(s) PO QD 05/13/201107/06 Inactive metformin ER 500 mg tablet,extended release 24 hr RxNorm: 86 0977 1 Tablet(s) PO QD 03/18/2011 07/28/2011 Inactive Crestor 10 mg Tab RxNorm: 909488 1 Tablet(s) PO QHS 01/27/20112011 Inactive metformin ER 500 mg 24 hr Tab RxNorm: 924272 1 Tablet(s) PO QD 11/0403/17/2011 Inactive Viagra 100 mg Tab RxNorm: 465953 Tablet(s) PO TAKE ON E TABLET BY MOUTH DIRECTED 08/26/2010 07/28/2011 Inactive metformin ER 500 mg 24 hr Tab RxNorm: 638776 1 Tablet(s) PO QD 07/0611/18/2010 Inactive Crestor 10 mg Tab RxNorm: 123056 1 Tablet(s) PO QHS 07/30/20102010 Inactive Crestor 10 mg Tab RxNorm: 710077 1 Tablet(s) PO QHS 05/20/20102010 Inactive Wellbutrin SR 150 mg Tab RxNorm: 077981 1 Tablet(s) PO QAM 04/24/19 11 07/22/2010 Inactive Multivitamin And Mineral tablet RxNorm: 1 Tablet(s) PO QD No Start Date Active FreeStyle Lite Strips RxNorm: 1 Unit Dose Miscel laneous AC & HS check blood sugar AC and HS No Start Date Active Co Q-10 200 mg capsule RxNorm: 176585 1 Capsule(s) PO QD No Start Date Active lancets RxNorm: 1 Milliliter(s) Miscellaneous AC & HS No Start Robert e Active Vitamin D3 4,000 unit capsule RxNorm: 5886246 1 Capsule(s) PO QD No Start Date 07/08/2016 Inactive Fish Oil 360 mg-1,200 mg capsule RxNorm: 225250 2 Capsule(s) PO QD No Start Date 01/30/2019 Inactive hydrocodone 5 mg-acetaminophen 325 mg tablet RxNorm: 461887 1 Tablet(s) PO Q4H as needed for severe pain No Start Date 12/30/2015 Inactive Xanax 0.25 mg tablet RxNorm: 054715 1/2 Tablet(s) PO PRN for se andrea stress No Start Date 07/08/2016 Inactive lisinopril 40 mg Tab RxNorm: 607450 1 Tablet(s) PO QD No Start Date 0 05/12/2011 Inactive Fish Oil 1,000 mg capsule RxNorm: 1 Capsule(s) PO QD No Start Date 09/18/2014 Inactive naproxen 500 mg Tab RxNorm: 205179 1 Tablet(s) PO BID No Start Date 0 07/28/2011 Inactive aspirin 81 mg tablet RxNorm: 027723 1 Tablet(s) PO QD No Start Date 0 05/09/2018 Inactive Crestor 10 mg Tab RxNorm: 904859 1 Tablet(s) PO QD No Start Date 07/06 Inactive Crestor 5 mg tablet RxNorm: 096843 1 Tablet(s) PO QD No Start Date Inactive Fish Oil Oral RxNorm: Oral No Start Date 09/18/2014 Inactive Viagra 100 mg Tab RxNorm: 975513 1 Tablet(s) PO as directed No Star [...] Date S vice Location GLYCOSYLATED HEMOGLOBIN TEST 78608 Hgb A1c 76192-8 6.7 % 0 05/24/2019 Unknown COMPREHENSIVE METABOLIC 56812 AST 21 U/L 2019 Unknown COMPREHENSIVE METABOLIC 13209 ALT 26 U/L 2019 Unknown COMPREHENSIVE METABOLIC 29517 BUN 14 mg/dL 2019 Unknown COMPREHENSIVE METABOLIC 01836 ALBUMIN 4.4 g/dL 2019 Unknown COMPREHENSIVE METABOLIC 04384 CHLORIDE 102 mmol/L 05/24 Unknown COMPREHENSIVE METABOLIC 20554 Bili Total 0.4 mg/dL 05/24 Unknown COMPREHENSIVE METABOLIC 35388 ALK PHOS 55 U/L 2019 Unknown COMPREHENSIVE METABOLIC 32106 SODIUM 139 mmol/L 05/24 Unknown COMPREHENSIVE METABOLIC 65156 CREATININE 1.28 mg/dL 05/07 Unknown COMPREHENSIVE METABOLIC 43224 CALCIUM 9.7 mg/dL 2019 Unknown COMPREHENSIVE METABOLIC 63160 POTASSIUM 4.7 mmol/L 05/24 Unknown COMPREHENSIVE METABOLIC 03334 Total Protein 6.8 g/dL Unknown COMPREHENSIVE METABOLIC 18990 Glucose 130 mg/dL 2019 Unknown COMPREHENSIVE METABOLIC 69586 Bicarbonate 29 mmol/L 05/07 Unknown COMPREHENSIVE METABOLIC 89904 AGAP 8 mmol/L 2019 Unknown MEAN GLUC 3765876 Calc Mean Gluc 146 mg/dL 05/24/2019 Unkn own GFR CALC [id number] GFR Non Afr Amr 56 mL/min 05/24/2019 Unk nown GFR CALC 9761618 GFR Afr Amr >60 mL/min 05/24/2019 Unknow n MEAN GLUC [id number] Calc Mean Gluc 140 mg/dL 01/26/2019 Unkn own GLYCOSYLATED HEMOGLOBIN TEST 12639 Hgb A1c 32717-3 6.5 % 1 Unknown COMPREHENSIVE METABOLIC 66467 AST 17 U/L 2018 Unknown COMPREHENSIVE METABOLIC 09131 ALT 19 U/L 2018 Unknown COMPREHENSIVE METABOLIC 30941 BUN 19 mg/dL 2018 Unknown COMPREHENSIVE METABOLIC 00358 ALBUMIN 4.3 g/dL 2018 Unknown COMPREHENSIVE METABOLIC 75590 CHLORIDE 103 mmol/L 01/26 Unknown COMPREHENSIVE METABOLIC 55559 Bili Total 0.6 mg/dL 01/26 Unknown COMPREHENSIVE METABOLIC 48521 ALK PHOS 60 U/L 2018 Unknown COMPREHENSIVE METABOLIC 16801 SODIUM 140 mmol/L 01/26 Unknown COMPREHENSIVE METABOLIC 91516 CREATININE 1.21 mg/dL 01/05 Unknown COMPREHENSIVE METABOLIC 46516 CALCIUM 9.6 mg/dL 2018 Unknown COMPREHENSIVE METABOLIC 25405 POTASSIUM 4.5 mmol/L 01/26 Unknown COMPREHENSIVE METABOLIC 58582 Total Protein 6.7 g/dL Unknown COMPREHENSIVE METABOLIC 59998 Glucose 111 mg/dL 2018 Unknown COMPREHENSIVE METABOLIC 36788 Bicarbonate 28 mmol/L 01/05 Unknown COMPREHENSIVE METABOLIC 87315 AGAP 9 mmol/L 2018 Unknown COMPLETE BLOOD COUNT [id number] WBC 10.7 10e9/L 019 Unknown COMPLETE BLOOD COUNT 1121224 RBC 4.38 10e12/L 2018 Unknown COMPLETE BLOOD COUNT 5148425 HEMOGLOBIN 13.7 g/dL 01/27/20 19 Unknown COMPLETE BLOOD COUNT 2448048 HEMATOCRIT 42.0 % 01/27/20 19 Unknown COMPLETE BLOOD COUNT 7374870 MCV 95.9 fL 9 Unknown COMPLETE BLOOD COUNT 8165549 MCH 31.3 pg 9 Unknown COMPLETE BLOOD COUNT 5366819 MCHC 32.6 g/dL 9 Unknown COMPLETE BLOOD COUNT 7154224 PLATELET COUNT 232 10e9/L Unknown COMPLETE BLOOD COUNT 7807922 Mean Plt Volume 11.4 fL Unknown COMPLETE BLOOD COUNT [id number] Neut Auto 68.7 % 9 Unknown COMPLETE BLOOD COUNT [id number] Lymph Auto 21.2 % 01/27/20 19 Unknown COMPLETE BLOOD COUNT 1373643 [place] Auto 8.1 % 9 Unknown COMPLETE BLOOD COUNT 1531891 RDW 14.1 % 9 Unknown COMPLETE BLOOD COUNT 8737741 Eos Auto 1.8 % 9 Unknown COMPLETE BLOOD COUNT 2255879 Baso Auto 0.2 % 9 Unknown COMPLETE BLOOD COUNT 8269706 Neutrophil Abs 7.35 10e9/L Unknown COMPLETE BLOOD COUNT 7650937 Lymphocyte Abs 2.27 10e9/L Unknown COMPLETE BLOOD COUNT [id number] Monocyte Abs 0.87 10e9/L 01/05 Unknown COMPLETE BLOOD COUNT 7588519 Eosinophil Abs 0.19 10e9/L Unknown COMPLETE BLOOD COUNT 8977781 RDW-SD 47.7 fL 9 Unknown COMPLETE BLOOD COUNT [id number] Basophil Abs 0.02 10e9/L 01/05 Unknown GFR CALC 0194160 GFR Non Afr Amr 59 mL/min 01/26/2019 Unk nown GFR CALC 7954312 GFR Afr Amr >60 mL/min 01/26/2019 Unknow n LIPID GROUP 50251 Cholesterol 215 mg/dL 01/26/2019 Unkno wn LIPID GROUP 70466 Triglyceride 221 mg/dL 01/26/2019 Unkn own LIPID GROUP 48133 HDL CHOLESTEROL 41 mg/dL 01/26/2019 U nknown LIPID GROUP 84560 Chol/HDL Ratio 5.24 ratio 01/26/2019 U nknown LIPID GROUP 24365 NON-HDL Chol 174 mg/dL 01/26/2019 Unkn own LIPID GROUP 09886 LDL Cholesterol 130 mg/dL 01/26/2019 [place] [address] Glucose 104 mg/dL 09/30 [place] [address] CREATININE 1.18 mg/dL [place] [address] BUN 19 mg/dL 09/30 [place] [address] SODIUM 139 mmol/L 09/05 [place] [address] POTASSIUM 4.1 mmol/L 09/05 [place] [address] CHLORIDE 105 mmol/L 09/05 [place] [address] Bicarbonate 26 mmol/[place] [address] AGAP 8 mmol/L 09/30 [place] [address] CALCIUM 9.3 mg/dL 09/30 Unknown GFR CALC 5047369 GFR Non Afr Amr >60 mL/min 09/30/2018 Un known GFR CALC [id number] GFR Afr Amr >60 mL/min 09/30/2018 Unknow n MICROALBUMIN URINE RANDOM 05728 U Microalbumin <2.0 mg/L 08/19/2018 Unknown MICROALBUMIN URINE RANDOM 94673 U Creatinine 66 mg/dL 0 08/19/2018 Unknown MICROALBUMIN URINE RANDOM 82408 ALB/CR Ratio <3.0 mg/gCR 08/19/2018 Unknown COMPREHENSIVE METABOLIC 24840 AST 21 U/L 2018 Unknown COMPREHENSIVE METABOLIC 79976 ALT 20 U/L 2018 Unknown COMPREHENSIVE METABOLIC 07970 BUN 31 mg/dL 2018 Unknown COMPREHENSIVE METABOLIC 83111 ALBUMIN 4.4 g/dL 2018 Unknown COMPREHENSIVE METABOLIC 57528 CHLORIDE 105 mmol/L 08/16 Unknown COMPREHENSIVE METABOLIC 62850 Bili Total 0.5 mg/dL 08/16 Unknown COMPREHENSIVE METABOLIC 20821 ALK PHOS 40 U/L 2018 Unknown COMPREHENSIVE METABOLIC 70318 SODIUM 140 mmol/L 08/16 Unknown COMPREHENSIVE METABOLIC 01118 CREATININE 1.45 mg/dL 08/04 Unknown COMPREHENSIVE METABOLIC 24074 CALCIUM 9.8 mg/dL 2018 Unknown COMPREHENSIVE METABOLIC 85183 POTASSIUM 5.1 mmol/L 08/16 Unknown COMPREHENSIVE METABOLIC 84766 Total Protein 6.9 g/dL Unknown COMPREHENSIVE METABOLIC 02418 Glucose 110 mg/dL 2018 Unknown COMPREHENSIVE METABOLIC 52882 Bicarbonate 25 mmol/L 08/04 Unknown COMPREHENSIVE METABOLIC 21335 AGAP 10 mmol/L 2018 Unknown GFR CALC 8590657 GFR Non Afr Amr 48 mL/min 08/16/2018 Unk nown GFR CALC 5611931 GFR Afr Amr 58 mL/min 08/16/2018 Unknown GLYCOSYLATED HEMOGLOBIN TEST 57511 Hgb A1c 05539-6 5.9 % 0 08/16/2018 Unknown LIPID GROUP 20548 Cholesterol 226 mg/dL 08/16/2018 Unkno wn LIPID GROUP 29454 Triglyceride 335 mg/dL 08/16/2018 Unkn own LIPID GROUP 74969 HDL CHOLESTEROL 32 mg/dL 08/16/2018 U nknown LIPID GROUP 73191 Chol/HDL Ratio 7.06 ratio 08/16/2018 U nknown LIPID GROUP 33839 NON-HDL Chol 194 mg/dL 08/16/2018 Unkn own LIPID GROUP 05680 LDL Cholesterol 127 mg/dL 08/16/2018 U nknown THYROID STIMULATING HORMONE 30756 TSH 2.475 uIU/mL 08/16/2018 Unknown COMPLETE BLOOD COUNT 2301305 WBC 7.5 10e9/L 08/17/19 19 Unknown COMPLETE BLOOD COUNT 2165780 RBC 4.09 10e12/L 2018 Unknown COMPLETE BLOOD COUNT 4256257 HEMOGLOBIN 12.9 g/dL 08/17/19 19 Unknown COMPLETE BLOOD COUNT 6349496 HEMATOCRIT 40.0 % 08/17/19 19 Unknown COMPLETE BLOOD COUNT 3192133 MCV 97.8 fL 9 Unknown COMPLETE BLOOD COUNT 8456987 MCH 31.5 pg 9 Unknown COMPLETE BLOOD COUNT 1123886 MCHC 32.3 g/dL 9 Unknown COMPLETE BLOOD COUNT 2129074 PLATELET COUNT 258 10e9/L Unknown COMPLETE BLOOD COUNT 2905813 Mean Plt Volume 11.4 fL Unknown COMPLETE BLOOD COUNT 1249553 Neut Auto 62.9 % 9 Unknown COMPLETE BLOOD COUNT [id number] Lymph Auto 27.3 % 08/17/19 19 Unknown COMPLETE BLOOD COUNT 1735427 [place] Auto 8.2 % 9 Unknown COMPLETE BLOOD COUNT 3376040 RDW 13.3 % 9 Unknown COMPLETE BLOOD COUNT 7458171 Eos Auto 1.5 % 9 Unknown COMPLETE BLOOD COUNT 0641386 Baso Auto 0.1 % 9 Unknown COMPLETE BLOOD COUNT 1820765 Neutrophil Abs 4.72 10e9/L Unknown COMPLETE BLOOD COUNT [id number] Lymphocyte Abs 2.05 10e9/L Unknown COMPLETE BLOOD COUNT [id number] Monocyte Abs 0.62 10e9/L 08/04 Unknown COMPLETE BLOOD COUNT 8912380 Eosinophil Abs 0.11 10e9/L Unknown COMPLETE BLOOD COUNT 6496384 RDW-SD 46.7 fL 9 Unknown COMPLETE BLOOD COUNT 6908238 Basophil Abs 0.01 10e9/L 08/04 Unknown MEAN GLUC 6498647 Calc Mean Gluc 123 mg/dL 08/16/2018 Unkn own LIPID GROUP 05403 Cholesterol 212 mg/dL 05/05/2018 Unkno wn LIPID GROUP 06396 Triglyceride 271 mg/dL 05/05/2018 Unkn own LIPID GROUP 09014 HDL CHOLESTEROL 38 mg/dL 05/05/2018 U nknown LIPID GROUP 96329 Chol/HDL Ratio 5.58 ratio 05/05/2018 U nknown LIPID GROUP 80360 NON-HDL Chol 174 mg/dL 05/05/2018 Unkn own LIPID GROUP 59149 LDL Cholesterol 120 mg/dL 05/05/2018 U nknown GFR CALC [id number] GFR Non Afr Amr 49 mL/min 05/05/2018 Unk nown GFR CALC [id number] GFR Afr Amr 59 mL/min 05/05/2018 Unknown GLYCOSYLATED HEMOGLOBIN TEST 96525 Hgb A1c 51635-4 6.0 % 0 05/05/2018 Unknown MEAN GLUC [id number] Calc Mean Gluc 126 mg/dL 05/05/2018 Unkn own COMPREHENSIVE METABOLIC 66515 AST 18 U/L 2018 Unknown COMPREHENSIVE METABOLIC 25945 ALT 23 U/L 2018 Unknown COMPREHENSIVE METABOLIC 81218 BUN 30 mg/dL 2018 Unknown COMPREHENSIVE METABOLIC 17145 ALBUMIN 4.3 g/dL 2018 Unknown COMPREHENSIVE METABOLIC 87637 CHLORIDE 106 mmol/L 05/05 Unknown COMPREHENSIVE METABOLIC 99916 Bili Total 0.4 mg/dL 05/05 Unknown COMPREHENSIVE METABOLIC 74927 ALK PHOS 39 U/L 2018 Unknown COMPREHENSIVE METABOLIC 55079 SODIUM 139 mmol/L 05/05 Unknown COMPREHENSIVE METABOLIC 09507 CREATININE 1.44 mg/dL 04/08 Unknown COMPREHENSIVE METABOLIC 94065 CALCIUM 9.6 mg/dL 2018 Unknown COMPREHENSIVE METABOLIC 58501 POTASSIUM 4.7 mmol/L 05/05 Unknown COMPREHENSIVE METABOLIC 08806 Total Protein 6.6 g/dL Unknown COMPREHENSIVE METABOLIC 44687 Glucose 112 mg/dL 2018 Unknown COMPREHENSIVE METABOLIC 20985 Bicarbonate 28 mmol/L 04/08 Unknown COMPREHENSIVE METABOLIC 56416 AGAP 5 mmol/L 2018 Unknown THYROID STIMULATING HORMONE 33371 TSH 3.725 uIU/mL 05/05/2018 Unknown COMPLETE BLOOD COUNT [id number] WBC 8.2 10e9/L 05/05/19 19 Unknown COMPLETE BLOOD COUNT [id number] RBC 4.02 10e12/L 2018 Unknown COMPLETE BLOOD COUNT [id number] HEMOGLOBIN 12.7 g/dL 05/05/19 19 Unknown COMPLETE BLOOD COUNT [id number] HEMATOCRIT 39.3 % 05/05/19 19 Unknown COMPLETE BLOOD COUNT [id number] MCV 97.8 fL 9 Unknown COMPLETE BLOOD COUNT [id number] MCH 31.6 pg 9 Unknown COMPLETE BLOOD COUNT 0262126 MCHC 32.3 g/dL 9 Unknown COMPLETE BLOOD COUNT [id number] PLATELET COUNT 213 10e9/L Unknown COMPLETE BLOOD COUNT [id number] Mean Plt Volume 11.7 fL Unknown COMPLETE BLOOD COUNT 3829762 Neut Auto 55.7 % 9 Unknown COMPLETE BLOOD COUNT [id number] Lymph Auto 33.2 % 05/05/19 19 Unknown COMPLETE BLOOD COUNT 0736777 [place] Auto 8.5 % 9 Unknown COMPLETE BLOOD COUNT 1262639 RDW 13.9 % 9 Unknown COMPLETE BLOOD COUNT [id number] Eos Auto 2.4 % 9 Unknown COMPLETE BLOOD COUNT [id number] Baso Auto 0.2 % 9 Unknown COMPLETE BLOOD COUNT [id number] Neutrophil Abs 4.57 10e9/L Unknown COMPLETE BLOOD COUNT [id number] Lymphocyte Abs 2.72 10e9/L Unknown COMPLETE BLOOD COUNT [id number] Monocyte Abs 0.70 10e9/L 04/08 Unknown COMPLETE BLOOD COUNT [id number] Eosinophil Abs 0.20 10e9/L Unknown COMPLETE BLOOD COUNT [id number] RDW-SD 48.8 fL 9 Unknown COMPLETE BLOOD COUNT [id number] Basophil Abs 0.02 10e9/L 04/08 Unknown MICROALBUMIN URINE RANDOM 96340 U Microalbumin 19.3 mg/L 01/19/2018 Unknown MICROALBUMIN URINE RANDOM 85247 U Creatinine 96 mg/dL 1 Unknown MICROALBUMIN URINE RANDOM 97446 ALB/CR Ratio 20.1 mg/gCR 01/19/2018 Unknown LIPID GROUP 77355 Cholesterol 173 mg/dL 01/13/2018 Unkno wn LIPID GROUP 36187 Triglyceride 386 mg/dL 01/13/2018 Unkn own LIPID GROUP 31286 HDL CHOLESTEROL 37 mg/dL 01/13/2018 U nknown LIPID GROUP 13164 Chol/HDL Ratio 4.68 ratio 01/13/2018 U nknown LIPID GROUP 45684 NON-HDL Chol 136 mg/dL 01/13/2018 Unkn own LIPID GROUP 95666 LDL Cholesterol 59 mg/dL 01/13/2018 U nknown COMPLETE BLOOD COUNT 1193970 WBC TNP:Client Request 01/13/2018 Unknown COMPLETE BLOOD COUNT 3286373 RBC TNP:Client Request 01/13/2018 Unknown COMPLETE BLOOD COUNT [id number] HEMOGLOBIN TNP:Client Request 01/13/2018 Unknown COMPLETE BLOOD COUNT [id number] HEMATOCRIT TNP:Client Request 01/13/2018 Unknown COMPLETE BLOOD COUNT [id number] MCV TNP:Client Request 01/13/2018 Unknown COMPLETE BLOOD COUNT [id number] MCH TNP:Client Request 01/13/2018 Unknown COMPLETE BLOOD COUNT [id number] MCHC TNP:Client Request 01/13/2018 Unknown COMPLETE BLOOD COUNT [id number] PLATELET COUNT TNP:Client Req uest 01/13/2018 Unknown COMPLETE BLOOD COUNT 9463580 Mean Plt Volume TNP:Client Re quest 01/13/2018 Unknown COMPLETE BLOOD COUNT [id number] Neut Auto TNP:Client Request 01/13/2018 Unknown COMPLETE BLOOD COUNT [id number] Lymph Auto TNP:Client Request 01/13/2018 Unknown COMPLETE BLOOD COUNT [id number] [place] Auto TNP:Client Request 01/13/2018 Unknown COMPLETE BLOOD COUNT [id number] RDW TNP:Client Request 01/13/2018 Unknown COMPLETE BLOOD COUNT [id number] Eos Auto TNP:Client Request 01/13/2018 Unknown COMPLETE BLOOD COUNT [id number] Baso Auto TNP:Client Request 01/13/2018 Unknown COMPLETE BLOOD COUNT [id number] Neutrophil Abs TNP:Client Req uest 01/13/2018 Unknown COMPLETE BLOOD COUNT [id number] Lymphocyte Abs TNP:Client Req uest 01/13/2018 Unknown COMPLETE BLOOD COUNT [id number] Monocyte Abs TNP:Client Reque st 01/13/2018 Unknown COMPLETE BLOOD COUNT [id number] Eosinophil Abs TNP:Client Req uest 01/13/2018 Unknown COMPLETE BLOOD COUNT [id number] RDW-SD TNP:Client Request 01/13/2018 Unknown COMPLETE BLOOD COUNT [id number] Basophil Abs TNP:Client Reque st 01/13/2018 Unknown GLYCOSYLATED HEMOGLOBIN TEST 91544 Hgb A1c 17914-7 6.2 % 1 Unknown THYROID STIMULATING HORMONE 85327 TSH 2.764 uIU/mL 01/13/2018 Unknown COMPREHENSIVE METABOLIC 74750 AST 19 U/L 2017 Unknown COMPREHENSIVE METABOLIC 37985 ALT 21 U/L 2017 Unknown COMPREHENSIVE METABOLIC 54691 BUN 16 mg/dL 2017 Unknown COMPREHENSIVE METABOLIC 85091 ALBUMIN 4.2 g/dL 2017 Unknown COMPREHENSIVE METABOLIC 05975 CHLORIDE 105 mmol/L 01/13 Unknown COMPREHENSIVE METABOLIC 26100 Bili Total 0.5 mg/dL 01/13 Unknown COMPREHENSIVE METABOLIC 35451 ALK PHOS 85 U/L 2017 Unknown COMPREHENSIVE METABOLIC 42896 SODIUM 139 mmol/L 01/13 Unknown COMPREHENSIVE METABOLIC 84350 CREATININE 1.07 mg/dL 01/04 Unknown COMPREHENSIVE METABOLIC 64387 CALCIUM 9.2 mg/dL 2017 Unknown COMPREHENSIVE METABOLIC 20793 POTASSIUM 4.4 mmol/L 01/13 Unknown COMPREHENSIVE METABOLIC 88047 Total Protein 7.7 g/dL Unknown COMPREHENSIVE METABOLIC 33090 Glucose 130 mg/dL 2017 Unknown COMPREHENSIVE METABOLIC 22906 Bicarbonate 27 mmol/L 01/04 Unknown COMPREHENSIVE METABOLIC 36690 AGAP 7 mmol/L 2017 Unknown PSA EQUIMOLAR JERSON 26923 PSA Total 1.16 ng/mL 8 Unknown MEAN GLUC 8701181 Calc Mean Gluc 131 mg/dL 01/13/2018 Unkn own GFR CALC 1499818 GFR Non Afr Amr >60 mL/min 01/13/2018 Un known GFR CALC 3222437 GFR Afr Amr >60 mL/min 01/13/2018 Unknow n MEAN GLUC 2245281 Calc Mean Gluc 134 mg/dL 10/06/2017 Unkn own GFR CALC 7965728 GFR Non Afr Amr >60 mL/min 10/06/2017 Un known GFR CALC 5918143 GFR Afr Amr >60 mL/min 10/06/2017 Unknow n GLYCOSYLATED HEMOGLOBIN TEST 89873 Hgb A1c 85697-2 6.3 % 0 10/06/2017 Unknown VITAMIN B 12 10547 VITAMIN B12 1202 pg/mL 10/06/2017 Unk nown COMPLETE BLOOD COUNT 1198540 WBC 7.4 10e9/L 10/07/19 18 Unknown COMPLETE BLOOD COUNT [id number] RBC 4.24 10e12/L 2017 Unknown COMPLETE BLOOD COUNT 8229915 HEMOGLOBIN 13.5 g/dL 10/07/19 18 Unknown COMPLETE BLOOD COUNT [id number] HEMATOCRIT 41.6 % 10/07/19 18 Unknown COMPLETE BLOOD COUNT [id number] MCV 98.1 fL 8 Unknown COMPLETE BLOOD COUNT 0732866 MCH 31.8 pg 8 Unknown COMPLETE BLOOD COUNT 7844135 MCHC 32.5 g/dL 8 Unknown COMPLETE BLOOD COUNT 1181483 PLATELET COUNT 223 10e9/L 06/2017 Unknown COMPLETE BLOOD COUNT 2684920 Mean Plt Volume 11.9 fL 06/2017 Unknown COMPLETE BLOOD COUNT 2116026 Neut Auto 58.0 % 8 Unknown COMPLETE BLOOD COUNT 4232225 Lymph Auto 29.7 % 10/07/19 18 Unknown COMPLETE BLOOD COUNT 7027674 [place] Auto 8.3 % 8 Unknown COMPLETE BLOOD COUNT 4779923 RDW 14.0 % 8 Unknown COMPLETE BLOOD COUNT 4849907 Eos Auto 3.7 % 8 Unknown COMPLETE BLOOD COUNT 2867672 Baso Auto 0.3 % 8 Unknown COMPLETE BLOOD COUNT 8895033 Neutrophil Abs 4.29 10e9/L Unknown COMPLETE BLOOD COUNT 8595606 Lymphocyte Abs 2.20 10e9/L Unknown COMPLETE BLOOD COUNT 6168172 Monocyte Abs 0.61 10e9/L 06/2017 Unknown COMPLETE BLOOD COUNT [id number] Eosinophil Abs 0.27 10e9/L Unknown COMPLETE BLOOD COUNT 0257287 RDW-SD 48.6 fL 8 Unknown COMPLETE BLOOD COUNT [id number] Basophil Abs 0.02 10e9/L 06/2017 Unknown LIPID GROUP 42484 Cholesterol 216 mg/dL 10/06/2017 Unkno wn LIPID GROUP 10638 Triglyceride 335 mg/dL 10/06/2017 Unkn own LIPID GROUP 93349 HDL CHOLESTEROL 33 mg/dL 10/06/2017 U nkno LIPID GROUP 11756 Chol/HDL Ratio 6.55 ratio 10/06/2017 U nknon LIPID GROUP 35304 NON-HDL Chol 183 mg/dL 10/06/2017 Unkn own LIPID GROUP 29813 LDL Cholesterol 116 mg/dL 10/06/2017 U nknown COMPREHENSIVE METABOLIC 08951 AST 15 U/L 2017 Unknown COMPREHENSIVE METABOLIC 85076 ALT 15 U/L 2017 Unknown COMPREHENSIVE METABOLIC 94187 BUN 21 mg/dL 2017 Unknown COMPREHENSIVE METABOLIC 24962 ALBUMIN 4.1 g/dL 2017 Unknown COMPREHENSIVE METABOLIC 18004 CHLORIDE 107 mmol/L 10/06 Unknown COMPREHENSIVE METABOLIC 38293 Bili Total 0.6 mg/dL 10/06 Unknown COMPREHENSIVE METABOLIC 73999 ALK PHOS 68 U/L 2017 Unknown COMPREHENSIVE METABOLIC 48303 SODIUM 140 mmol/L 10/06 Unknown COMPREHENSIVE METABOLIC 46383 CREATININE 1.12 mg/dL 06/2017 Unknown COMPREHENSIVE METABOLIC 84942 CALCIUM 9.7 mg/dL 2017 Unknown COMPREHENSIVE METABOLIC 32777 POTASSIUM 4.6 mmol/L 10/06 Unknown COMPREHENSIVE METABOLIC 09942 Total Protein 6.6 g/dL Unknown COMPREHENSIVE METABOLIC 39725 Glucose 114 mg/dL 2017 Unknown COMPREHENSIVE METABOLIC 45304 Bicarbonate 26 mmol/L 06/2017 Unknown COMPREHENSIVE METABOLIC 93569 AGAP 7 mmol/L 2017 Unknown GLYCOSYLATED HEMOGLOBIN TEST 57876 Hgb A1c 81990-3 6.1 % 1 05/05/2016 Unknown GFR CALC 1828273 GFR Non Afr Amr >60 mL/min 03/05/2017 Un known GFR CALC 1506712 GFR Afr Amr >60 mL/min 03/05/2017 Unknow n MEAN GLUC 7044065 Calc Mean Gluc 128 mg/dL 03/05/2017 Unkn own COMPREHENSIVE METABOLIC 13403 AST 18 U/L 2016 Unknown COMPREHENSIVE METABOLIC 22858 ALT 20 U/L 2016 Unknown COMPREHENSIVE METABOLIC 72756 BUN 15 mg/dL 2016 Unknown COMPREHENSIVE METABOLIC 71925 ALBUMIN 4.3 g/dL 2016 Unknown COMPREHENSIVE METABOLIC 02698 CHLORIDE 105 mmol/L 03/05 Unknown COMPREHENSIVE METABOLIC 37867 Bili Total 0.5 mg/dL 03/05 Unknown COMPREHENSIVE METABOLIC 61604 ALK PHOS 57 U/L 2016 Unknown COMPREHENSIVE METABOLIC 64538 SODIUM 141 mmol/L 03/05 Unknown COMPREHENSIVE METABOLIC 44578 CREATININE 1.07 mg/dL 02/06 Unknown COMPREHENSIVE METABOLIC 94963 CALCIUM 9.3 mg/dL 2016 Unknown COMPREHENSIVE METABOLIC 68236 POTASSIUM 4.8 mmol/L 03/05 Unknown COMPREHENSIVE METABOLIC 26757 Total Protein 6.2 g/dL Unknown COMPREHENSIVE METABOLIC 64952 Glucose 118 mg/dL 2016 Unknown COMPREHENSIVE METABOLIC 49246 Bicarbonate 29 mmol/L 02/06 Unknown COMPREHENSIVE METABOLIC 79408 AGAP 7 mmol/L 2016 Unknown FREE T4 68515 T4 Free 1.38 ng/dL 03/05/2017 Unknown COMPLETE BLOOD COUNT 7610895 WBC 8.4 10e9/L 03/05/20 17 Unknown COMPLETE BLOOD COUNT 3654812 RBC 4.11 10e12/L 2016 Unknown COMPLETE BLOOD COUNT 7106462 HEMOGLOBIN 12.8 g/dL 03/05/20 17 Unknown COMPLETE BLOOD COUNT 2576516 HEMATOCRIT 40.1 % 03/05/20 17 Unknown COMPLETE BLOOD COUNT 8282879 MCV 97.6 fL 7 Unknown COMPLETE BLOOD COUNT 4251764 MCH 31.1 pg 7 Unknown COMPLETE BLOOD COUNT 9006129 MCHC 31.9 g/dL 7 Unknown COMPLETE BLOOD COUNT 6604265 PLATELET COUNT 184 10e9/L Unknown COMPLETE BLOOD COUNT 2207086 Mean Plt Volume 11.3 fL Unknown COMPLETE BLOOD COUNT 3008830 Neut Auto 62.5 % 7 Unknown COMPLETE BLOOD COUNT 4961294 Lymph Auto 26.4 % 03/05/20 17 Unknown COMPLETE BLOOD COUNT 6475958 [place] Auto 7.9 % 7 Unknown COMPLETE BLOOD COUNT 1424673 RDW 13.5 % 7 Unknown COMPLETE BLOOD COUNT 3595241 Eos Auto 3.0 % 7 Unknown COMPLETE BLOOD COUNT 1239689 Baso Auto 0.2 % 7 Unknown COMPLETE BLOOD COUNT 8879652 Neutrophil Abs 5.25 10e9/L Unknown COMPLETE BLOOD COUNT 7370690 Lymphocyte Abs 2.22 10e9/L Unknown COMPLETE BLOOD COUNT 1046219 Monocyte Abs 0.66 10e9/L 02/06 Unknown COMPLETE BLOOD COUNT 6230897 Eosinophil Abs 0.25 10e9/L Unknown COMPLETE BLOOD COUNT 4946146 RDW-SD 46.7 fL 7 Unknown COMPLETE BLOOD COUNT 1842373 Basophil Abs 0.02 10e9/L 02/06 Unknown THYROID STIMULATING HORMONE 24248 TSH 2.330 uIU/mL 03/05/2017 Unknown LIPID GROUP 40339 Cholesterol 135 mg/dL 03/05/2017 Unkno wn LIPID GROUP 97460 Triglyceride 297 mg/dL 03/05/2017 Unkn own LIPID GROUP 06567 HDL CHOLESTEROL 34 mg/dL 03/05/2017 U nknown LIPID GROUP 79989 Chol/HDL Ratio 3.97 ratio 03/05/2017 U nknown LIPID GROUP 64797 NON-HDL Chol 101 mg/dL 03/05/2017 Unkn own LIPID GROUP 82667 LDL Cholesterol 42 mg/dL 03/05/2017 U nknown GLYCOSYLATED HEMOGLOBIN TEST 70826 Hgb A1c 95414-6 6.5 % 1 05/07/2015 Unknown GFR CALC 1805889 GFR Non Afr Amr 55 mL/min 03/06/2016 Unk nown GFR CALC 6261383 GFR Afr Amr >60 mL/min 03/06/2016 Unknow n COMPLETE BLOOD COUNT 9305018 WBC 8.5 10e9/L 03/06/20 16 Unknown COMPLETE BLOOD COUNT 6621135 RBC 4.32 10e12/L 2015 Unknown COMPLETE BLOOD COUNT 9981886 HEMOGLOBIN 13.5 g/dL 03/06/20 16 Unknown COMPLETE BLOOD COUNT 4926454 HEMATOCRIT 41.3 % 03/06/20 16 Unknown COMPLETE BLOOD COUNT 3047404 MCV 95.6 fL 6 Unknown COMPLETE BLOOD COUNT 4032496 MCH 31.3 pg 6 Unknown COMPLETE BLOOD COUNT 8221513 MCHC 32.7 g/dL 6 Unknown COMPLETE BLOOD COUNT 4439941 PLATELET COUNT 191 10e9/L 04/2015 Unknown COMPLETE BLOOD COUNT 9011723 Mean Plt Volume 11.7 fL 04/2015 Unknown COMPLETE BLOOD COUNT 3700930 Neut Auto 64.2 % 6 Unknown COMPLETE BLOOD COUNT 8648561 Lymph Auto 25.9 % 03/06/20 16 Unknown COMPLETE BLOOD COUNT 6974106 [place] Auto 7.8 % 6 Unknown COMPLETE BLOOD COUNT 9106057 RDW 13.4 % 6 Unknown COMPLETE BLOOD COUNT 4089628 Eos Auto 2.0 % 6 Unknown COMPLETE BLOOD COUNT 1307871 Baso Auto 0.1 % 6 Unknown COMPLETE BLOOD COUNT 5887478 Neutrophil Abs 5.46 10e9/L Unknown COMPLETE BLOOD COUNT 8864372 Lymphocyte Abs 2.20 10e9/L Unknown COMPLETE BLOOD COUNT 8354115 Monocyte Abs 0.66 10e9/L 04/2015 Unknown COMPLETE BLOOD COUNT 2458248 Eosinophil Abs 0.17 10e9/L Unknown COMPLETE BLOOD COUNT 1247833 RDW-SD 45.0 fL 6 Unknown COMPLETE BLOOD COUNT [id number] Basophil Abs 0.01 10e9/L 04/2015 Unknown FREE T4 90964 T4 Free 1.34 ng/dL 03/06/2016 Unknown MEAN GLUC 6658541 Calc Mean Gluc 140 mg/dL 03/06/2016 Unkn own COMPREHENSIVE METABOLIC 82046 AST 15 U/L 2015 Unknown COMPREHENSIVE METABOLIC 21492 ALT 18 U/L 2015 Unknown COMPREHENSIVE METABOLIC 51542 BUN 21 mg/dL 2015 Unknown COMPREHENSIVE METABOLIC 28213 ALBUMIN 4.3 g/dL 2015 Unknown COMPREHENSIVE METABOLIC 37807 CHLORIDE 103 mmol/L 03/06 Unknown COMPREHENSIVE METABOLIC 00537 Bili Total 0.4 mg/dL 03/06 Unknown COMPREHENSIVE METABOLIC 95012 ALK PHOS 68 U/L 2015 Unknown COMPREHENSIVE METABOLIC 38119 SODIUM 140 mmol/L 03/06 Unknown COMPREHENSIVE METABOLIC 53781 CREATININE 1.31 mg/dL 04/2015 Unknown COMPREHENSIVE METABOLIC 04350 CALCIUM 9.4 mg/dL 2015 Unknown COMPREHENSIVE METABOLIC 02667 POTASSIUM 4.8 mmol/L 03/06 Unknown COMPREHENSIVE METABOLIC 34419 Total Protein 6.6 g/dL Unknown COMPREHENSIVE METABOLIC 20700 Glucose 142 mg/dL 2015 Unknown COMPREHENSIVE METABOLIC 02373 Bicarbonate 29 mmol/L 04/2015 Unknown COMPREHENSIVE METABOLIC 29341 AGAP 8 mmol/L 2015 Unknown THYROID STIMULATING HORMONE 89918 TSH 2.288 uIU/mL 03/06/2016 Unknown LIPID GROUP 63187 Cholesterol 154 mg/dL 03/06/2016 Unkno wn LIPID GROUP 48208 Triglyceride 266 mg/dL 03/06/2016 Unkn own LIPID GROUP 34258 HDL CHOLESTEROL 38 mg/dL 03/06/2016 U nknown LIPID GROUP 33324 Chol/HDL Ratio 4.05 ratio 03/06/2016 U nknown LIPID GROUP 14990 NON-HDL Chol 116 mg/dL 03/06/2016 Unkn own LIPID GROUP 01180 LDL Cholesterol 63 mg/dL 03/06/2016 U nknown MEAN GLUC 8150203 Mean Glucose 128 mg/dL 08/31/2015 Unknow n COMPLETE BLOOD COUNT 8846525 WBC 8.4 10e9/L 08/31/19 16 Unknown COMPLETE BLOOD COUNT 0009990 RBC 4.12 10e12/L 2015 Unknown COMPLETE BLOOD COUNT 1798674 HEMOGLOBIN 12.8 g/dL 08/31/19 16 Unknown COMPLETE BLOOD COUNT 9392495 HEMATOCRIT 39.6 % 08/31/19 16 Unknown COMPLETE BLOOD COUNT 1719220 MCV 96.1 fL 6 Unknown COMPLETE BLOOD COUNT 5710236 MCH 31.1 pg 6 Unknown COMPLETE BLOOD COUNT 4957876 MCHC 32.3 g/dL 6 Unknown COMPLETE BLOOD COUNT 1257874 PLATELET COUNT 184 10e9/L Unknown COMPLETE BLOOD COUNT 8234424 Mean Plt Volume 12.0 fL Unknown COMPLETE BLOOD COUNT 0232786 Neut Auto 59.8 % 6 Unknown COMPLETE BLOOD COUNT 8279937 Lymph Auto 27.9 % 08/31/19 16 Unknown COMPLETE BLOOD COUNT 9160101 [place] Auto 9.1 % 6 Unknown COMPLETE BLOOD COUNT 0945829 RDW 13.6 % 6 Unknown COMPLETE BLOOD COUNT 5405144 Eos Auto 3.1 % 6 Unknown COMPLETE BLOOD COUNT 0264525 Baso Auto 0.1 % 6 Unknown COMPLETE BLOOD COUNT 2048213 Neutrophil Abs 5.02 10e9/L Unknown COMPLETE BLOOD COUNT 2780773 Lymphoctye Abs 2.34 10e9/L Unknown COMPLETE BLOOD COUNT 1911567 Monocyte Abs 0.76 10e9/L 08/05 Unknown COMPLETE BLOOD COUNT 9364016 Eosinophil Abs 0.26 10e9/L Unknown COMPLETE BLOOD COUNT 4411550 RDW-SD 46.3 fL 6 Unknown COMPLETE BLOOD COUNT 8921950 Basophil Abs 0.01 10e9/L 08/05 Unknown GLYCOSYLATED HEMOGLOBIN TEST 99044 Hgb A1c 32062-6 6.1 % 0 08/31/2015 Unknown GFR CALC 8452983 GFR Non Afr Amr >60 mL/min 08/31/2015 Un known GFR CALC 8917886 GFR Afr Amr >60 mL/min 08/31/2015 Unknow n FREE T4 89175 T4 Free 1.21 ng/dL 08/31/2015 Unknown THYROID STIMULATING HORMONE 71076 TSH 2.988 uIU/mL 08/31/2015 Unknown COMPREHENSIVE METABOLIC 31466 AST 16 U/L 2015 Unknown COMPREHENSIVE METABOLIC 98187 ALT 19 U/L 2015 Unknown COMPREHENSIVE METABOLIC 85782 BUN 17 mg/dL 2015 Unknown COMPREHENSIVE METABOLIC 76069 ALBUMIN 4.3 g/dL 2015 Unknown COMPREHENSIVE METABOLIC 09975 CHLORIDE 107 mmol/L 08/30 Unknown COMPREHENSIVE METABOLIC 29969 Bili Total 0.4 mg/dL 08/30 Unknown COMPREHENSIVE METABOLIC 51174 ALK PHOS 66 U/L 2015 Unknown COMPREHENSIVE METABOLIC 35728 SODIUM 140 mmol/L 08/30 Unknown COMPREHENSIVE METABOLIC 95519 CREATININE 1.07 mg/dL 08/05 Unknown COMPREHENSIVE METABOLIC 50193 CALCIUM 9.5 mg/dL 2015 Unknown COMPREHENSIVE METABOLIC 16894 POTASSIUM 4.5 mmol/L 08/30 Unknown COMPREHENSIVE METABOLIC 77147 Total Protein 6.7 g/dL Unknown COMPREHENSIVE METABOLIC 64323 Glucose 122 mg/dL 2015 Unknown COMPREHENSIVE METABOLIC 14512 Bicarbonate 26 mmol/L 08/05 Unknown COMPREHENSIVE METABOLIC 33296 AGAP 7 mmol/L 2015 Unknown LIPID GROUP 21511 Cholesterol 171 mg/dL 08/31/2015 Unkno wn LIPID GROUP 05906 Triglyceride 428 mg/dL 08/31/2015 Unkn own LIPID GROUP 74599 HDL CHOLESTEROL 35 mg/dL 08/31/2015 U nknown LIPID GROUP 80720 Chol/HDL Ratio 4.89 ratio 08/31/2015 U nknown LIPID GROUP 03516 NON-HDL Chol 136 mg/dL 08/31/2015 Unkn own LIPID GROUP 52176 LDL Cholesterol 50 mg/dL 08/31/2015 U nknown PSA EQUIMOLAR JERSON 98251 PSA Total 0.47 ng/mL 6 Unknown GFR CALC 4713438 GFR AA >60 ML/MIN 01/12/2015 Unknown GFR CALC 3597785 GFR NON-AA >60 ML/MIN 01/12/2015 Unknown COMPREHENSIVE METABOLIC 95658 AST 18 U/L 2014 Unknown COMPREHENSIVE METABOLIC 72682 ALT 19 IU/L 2014 Unknown COMPREHENSIVE METABOLIC 52692 BUN 19 MG/DL 2014 Unknown COMPREHENSIVE METABOLIC 96373 ALBUMIN 4.7 GM/DL 2014 Unknown COMPREHENSIVE METABOLIC 65969 CHLORIDE 104 MMOL/L 01/12 Unknown COMPREHENSIVE METABOLIC 79929 BILI TOT 0.8 MG/DL 2014 Unknown COMPREHENSIVE METABOLIC 18549 ALK PHOS 58 U/L 2014 Unknown COMPREHENSIVE METABOLIC 93264 SODIUM 139 MMOL/L 01/12 Unknown COMPREHENSIVE METABOLIC 55570 CREATININE 1.09 MG/DL 12/2014 Unknown COMPREHENSIVE METABOLIC 49176 CALCIUM 9.6 MG/DL 2014 Unknown COMPREHENSIVE METABOLIC 38756 POTASSIUM 4.4 MMOL/L 01/12 Unknown COMPREHENSIVE METABOLIC 80915 PROT TOT 6.7 GM/DL 2014 Unknown COMPREHENSIVE METABOLIC 00986 Glucose 109 MG/DL 2014 Unknown COMPREHENSIVE METABOLIC 84109 BICARB 27 MMOL/L 2014 Unknown COMPREHENSIVE METABOLIC 67311 ANION GAP 8 MEQ/L 2014 Unknown LIPID GROUP 70699 HDL TEST 36 MG/DL 01/12/2015 Unknown LIPID GROUP 29291 TRIG 220 MG/DL 01/12/2015 Unknown LIPID GROUP 77969 TEST LDL 58 MG/DL 01/12/2015 Unknown LIPID GROUP 83081 CHOL 138 MG/DL 01/12/2015 Unknown LIPID GROUP 75202 RCHOL/HDL 3.83 RATIO 01/12/2015 Unknow n LIPID GROUP 99858 NON-HDL CH 102 MG/DL 01/12/2015 Unknow n GLYCOSYLATED HEMOGLOBIN TEST 64856 A1C HPLC 51013-2 6.1 % 1 Unknown COMPLETE BLOOD COUNT 3285210 WBC 7.1 10e9/L 01/13/20 15 Unknown COMPLETE BLOOD COUNT 7171477 RBC 4.38 10e12/L 2014 Unknown COMPLETE BLOOD COUNT 3293511 HGB 13.7 g/dL 5 Unknown COMPLETE BLOOD COUNT 7138133 HCT DET 41.3 % 5 Unknown COMPLETE BLOOD COUNT 7871479 MCV 94.3 fL 5 Unknown COMPLETE BLOOD COUNT 1124532 MCH 31.3 pg 5 Unknown COMPLETE BLOOD COUNT 5997244 MCHC 33.2 g/dL 5 Unknown COMPLETE BLOOD COUNT 4686416 PLT 174 10e9/L 01/13/20 15 Unknown COMPLETE BLOOD COUNT 8490147 MPV 11.8 fL 5 Unknown COMPLETE BLOOD COUNT 8784937 SAMIR % 61.3 % 5 Unknown COMPLETE BLOOD COUNT 2377550 LY % 28.3 % 5 Unknown COMPLETE BLOOD COUNT 6524447 MON % 7.6 % 5 Unknown COMPLETE BLOOD COUNT 2433242 EOS % 2.7 % 5 Unknown COMPLETE BLOOD COUNT 3894594 BASO % 0.1 % 5 Unknown COMPLETE BLOOD COUNT 3013887 RDW 13.1 % 5 Unknown COMPLETE BLOOD COUNT 6097880 ABS SAMIR 4.35 10e9/L 015 Unknown COMPLETE BLOOD COUNT 9613547 ABS LYMPH 2.01 10e9/L 015 Unknown COMPLETE BLOOD COUNT 6947087 ABS MONO 0.54 10e9/L 015 Unknown COMPLETE BLOOD COUNT 2623319 ABS EOS 0.19 10e9/L 015 Unknown COMPLETE BLOOD COUNT 6737981 ABS BASO 0.01 10e9/L 015 Unknown COMPLETE BLOOD COUNT 5347149 RDW-SD 43.9 fL 5 Unknown GLYCOSYLATED HEMOGLOBIN TEST 84525 A1C HPLC 57181-8 6.1 % 0 08/15/2014 Unknown COMPLETE BLOOD COUNT 8062960 WBC 9.7 10e9/L 08/16/19 15 Unknown COMPLETE BLOOD COUNT [id number] RBC 4.29 10e12/L 2014 Unknown COMPLETE BLOOD COUNT 9978493 HGB 13.3 g/dL 5 Unknown COMPLETE BLOOD COUNT 2372922 HCT DET 40.5 % 5 Unknown COMPLETE BLOOD COUNT 3874938 MCV 94.4 fL 5 Unknown COMPLETE BLOOD COUNT 1431433 MCH 31.0 pg 5 Unknown COMPLETE BLOOD COUNT 4428182 MCHC 32.8 g/dL 5 Unknown COMPLETE BLOOD COUNT 2401759 PLT 227 10e9/L 08/16/19 15 Unknown COMPLETE BLOOD COUNT 5469459 MPV 11.0 fL 5 Unknown COMPLETE BLOOD COUNT 3973786 SAMIR % 66.4 % 5 Unknown COMPLETE BLOOD COUNT 0467181 LY % 23.7 % 5 Unknown COMPLETE BLOOD COUNT 3391324 MON % 8.1 % 5 Unknown COMPLETE BLOOD COUNT 7823945 EOS % 1.6 % 5 Unknown COMPLETE BLOOD COUNT 8393382 BASO % 0.2 % 5 Unknown COMPLETE BLOOD COUNT 5866377 RDW 13.4 % 5 Unknown COMPLETE BLOOD COUNT 2511581 ABS SAMIR 6.44 10e9/L 015 Unknown COMPLETE BLOOD COUNT 0128713 ABS LYMPH 2.30 10e9/L 015 Unknown COMPLETE BLOOD COUNT 7746647 ABS MONO 0.79 10e9/L 015 Unknown COMPLETE BLOOD COUNT 8808490 ABS EOS 0.16 10e9/L 015 Unknown COMPLETE BLOOD COUNT 8653576 ABS BASO 0.02 10e9/L 015 Unknown COMPLETE BLOOD COUNT 6221929 RDW-SD 44.7 fL 5 Unknown COMPREHENSIVE METABOLIC 92891 AST 17 U/L 2014 Unknown COMPREHENSIVE METABOLIC 39292 ALT 23 IU/L 2014 Unknown COMPREHENSIVE METABOLIC 30203 BUN 16 MG/DL 2014 Unknown COMPREHENSIVE METABOLIC 94757 ALBUMIN 4.3 GM/DL 2014 Unknown COMPREHENSIVE METABOLIC 70722 CHLORIDE 107 MMOL/L 08/15 Unknown COMPREHENSIVE METABOLIC 02691 BILI TOT 0.4 MG/DL 2014 Unknown COMPREHENSIVE METABOLIC 30905 ALK PHOS 91 U/L 2014 Unknown COMPREHENSIVE METABOLIC 80033 SODIUM 139 MMOL/L 08/15 Unknown COMPREHENSIVE METABOLIC 38458 CREATININE 1.07 MG/DL 08/04 Unknown COMPREHENSIVE METABOLIC 30474 CALCIUM 9.6 MG/DL 2014 Unknown COMPREHENSIVE METABOLIC 89448 POTASSIUM 4.6 MMOL/L 08/15 Unknown COMPREHENSIVE METABOLIC 38829 PROT TOT 6.7 GM/DL 2014 Unknown COMPREHENSIVE METABOLIC 80490 Glucose 111 MG/DL 2014 Unknown COMPREHENSIVE METABOLIC 38450 BICARB 27 MMOL/L 2014 Unknown COMPREHENSIVE METABOLIC 83132 ANION GAP 5 MEQ/L 2014 Unknown GFR CALC [id number] GFR AA >60 ML/MIN 08/15/2014 Unknown GFR CALC [id number] GFR NON-AA >60 ML/MIN 08/15/2014 Unknown THYROID STIMULATING HORMONE 02687 TSH 1.598 uIU/ML 08/15/2014 Unknown LIPID GROUP 94215 HDL TEST 33 MG/DL 08/15/2014 Unknown LIPID GROUP 84881 TRIG 187 MG/DL 08/15/2014 Unknown LIPID GROUP 47026 TEST LDL 58 MG/DL 08/15/2014 Unknown LIPID GROUP 92211 CHOL 128 MG/DL 08/15/2014 Unknown LIPID GROUP 74485 RCHOL/HDL 3.88 RATIO 08/15/2014 Unknow n LIPID GROUP 43945 NON-HDL CH 95 MG/DL 08/15/2014 Unknow n PSA EQUIMOLAR JERSON 98558 PSA EQ 0.70 NG/ML 5 Unknown FREE T4 78633 FREE T4 1.32 NG/DL 08/15/2014 Unknown GFR CALC 6793614 GFR AA >60 ML/MIN 12/14/2013 Unknown GFR CALC 6818975 GFR NON-AA 58.0L ML/MIN 12/14/2013 Unkno wn COMPLETE BLOOD COUNT [id number] WBC 8.7 10e9/L 12/15/19 14 Unknown COMPLETE BLOOD COUNT [id number] RBC 4.32 10e12/L 2013 Unknown COMPLETE BLOOD COUNT 9389387 HGB 13.5 g/dL 4 Unknown COMPLETE BLOOD COUNT 9099179 HCT DET 40.6 % 4 Unknown COMPLETE BLOOD COUNT 2896329 MCV 94.0 fL 4 Unknown COMPLETE BLOOD COUNT 6214503 MCH 31.3 pg 4 Unknown COMPLETE BLOOD COUNT 4104838 MCHC 33.3 g/dL 4 Unknown COMPLETE BLOOD COUNT 5405842 PLT 205 10e9/L 12/15/19 14 Unknown COMPLETE BLOOD COUNT [id number] MPV 11.7 fL 4 Unknown COMPLETE BLOOD COUNT 9291983 SAMIR % 62.5 % 4 Unknown COMPLETE BLOOD COUNT 3775071 LY % 26.9 % 4 Unknown COMPLETE BLOOD COUNT 4882221 MON % 8.8 % 4 Unknown COMPLETE BLOOD COUNT 8746705 EOS % 1.7 % 4 Unknown COMPLETE BLOOD COUNT 8606737 BASO % 0.1 % 4 Unknown COMPLETE BLOOD COUNT 4285259 RDW 13.4 % 4 Unknown COMPLETE BLOOD COUNT [id number] ABS SAMIR 5.44 10e9/L 014 Unknown COMPLETE BLOOD COUNT [id number] ABS LYMPH 2.34 10e9/L 014 Unknown COMPLETE BLOOD COUNT [id number] ABS MONO 0.77 10e9/L 014 Unknown COMPLETE BLOOD COUNT 1324827 ABS EOS 0.15 10e9/L 014 Unknown COMPLETE BLOOD COUNT 7597649 ABS BASO 0.01 10e9/L 014 Unknown COMPLETE BLOOD COUNT [id number] RDW-SD 44.7 fL 4 Unknown COMPREHENSIVE METABOLIC 49734 AST 14 U/L 2013 Unknown COMPREHENSIVE METABOLIC 37496 ALT 12 IU/L 2013 Unknown COMPREHENSIVE METABOLIC 83741 BUN 24 MG/DL 2013 Unknown COMPREHENSIVE METABOLIC 58881 ALBUMIN 4.5 GM/DL 2013 Unknown COMPREHENSIVE METABOLIC 11959 CHLORIDE 104 MMOL/L 12/14 Unknown COMPREHENSIVE METABOLIC 60526 BILI TOT 0.6 MG/DL 2013 Unknown COMPREHENSIVE METABOLIC 34802 ALK PHOS 82 U/L 2013 Unknown COMPREHENSIVE METABOLIC 12943 SODIUM 135 MMOL/L 12/14 Unknown COMPREHENSIVE METABOLIC 30774 CREATININE 1.25 MG/DL 12/05 Unknown COMPREHENSIVE METABOLIC 21314 CALCIUM 9.8 MG/DL 2013 Unknown COMPREHENSIVE METABOLIC 27032 POTASSIUM 4.7 MMOL/L 12/14 Unknown COMPREHENSIVE METABOLIC 81402 PROT TOT 6.7 GM/DL 2013 Unknown COMPREHENSIVE METABOLIC 86444 Glucose 126 MG/DL 2013 Unknown COMPREHENSIVE METABOLIC 58811 BICARB 27 MMOL/L 2013 Unknown COMPREHENSIVE METABOLIC 84036 ANION GAP 4 MEQ/L 2013 Unknown THYROID STIMULATING HORMONE 37322 TSH 3.281 uIU/ML 12/14/2013 Unknown FREE T4 82488 FREE T4 1.28 NG/DL 12/14/2013 Unknown LIPID GROUP 61995 HDL TEST 36 MG/DL 12/14/2013 Unknown LIPID GROUP 91564 TRIG 253 MG/DL 12/14/2013 Unknown LIPID GROUP 04417 TEST LDL 56 MG/DL 12/14/2013 Unknown LIPID GROUP 72238 CHOL 143 MG/DL 12/14/2013 Unknown LIPID GROUP 93093 RCHOL/HDL 3.97 RATIO 12/14/2013 Unknow n LIPID GROUP 10602 NON-HDL CH 107 MG/DL 12/14/2013 Unknow n GLYCOSYLATED HEMOGLOBIN TEST 04074 A1C HPLC 64938-6 6.1 % 0 12/14/2013 Unknown GLYCOSYLATED HEMOGLOBIN TEST 95283 A1C HPLC 59064-1 6.0 % 0 06/08/2013 Unknown LIPID GROUP 86466 HDL TEST 39 MG/DL 06/08/2013 Unknown LIPID GROUP 92195 TRIG 166 MG/DL 06/08/2013 Unknown LIPID GROUP 50377 TEST LDL 86 MG/DL 06/08/2013 Unknown LIPID GROUP 46838 CHOL 158 MG/DL 06/08/2013 Unknown LIPID GROUP 72210 RCHOL/HDL 4.05 RATIO 06/08/2013 Unknow n COMPREHENSIVE METABOLIC 23283 AST 17 U/L 2013 Unknown COMPREHENSIVE METABOLIC 50243 ALT 25 IU/L 2013 Unknown COMPREHENSIVE METABOLIC 65076 BUN 18 MG/DL 2013 Unknown COMPREHENSIVE METABOLIC 95577 ALBUMIN 4.5 GM/DL 2013 Unknown COMPREHENSIVE METABOLIC 26480 CHLORIDE 103 MMOL/L 06/08 Unknown COMPREHENSIVE METABOLIC 14868 BILI TOT 0.4 MG/DL 2013 Unknown COMPREHENSIVE METABOLIC 86372 ALK PHOS 72 U/L 2013 Unknown COMPREHENSIVE METABOLIC 66078 SODIUM 137 MMOL/L 06/08 Unknown COMPREHENSIVE METABOLIC 11254 CREATININE 1.07 MG/DL 08/2013 Unknown COMPREHENSIVE METABOLIC 39899 CALCIUM 9.7 MG/DL 2013 Unknown COMPREHENSIVE METABOLIC 74648 POTASSIUM 4.7 MMOL/L 06/08 Unknown COMPREHENSIVE METABOLIC 91549 PROT TOT 6.6 GM/DL 2013 Unknown COMPREHENSIVE METABOLIC 94101 Glucose 130 MG/DL 2013 Unknown COMPREHENSIVE METABOLIC 29600 BICARB 25 MMOL/L 2013 Unknown COMPREHENSIVE METABOLIC 53000 ANION GAP 9 MEQ/L 2013 Unknown FREE T4 54402 FREE T4 1.29 NG/DL 06/08/2013 Unknown THYROID STIMULATING HORMONE 76974 TSH 2.445 uIU/ML 06/08/2013 Unknown GFR CALC 0645031 GFR AA >60 ML/MIN 06/08/2013 Unknown GFR CALC 6001059 GFR NON-AA >60 ML/MIN 06/08/2013 Unknown COMPLETE BLOOD COUNT 1117195 WBC 8.2 10e9/L 06/09/19 14 Unknown COMPLETE BLOOD COUNT [id number] RBC 4.63 10e12/L 2013 Unknown COMPLETE BLOOD COUNT 4370619 HGB 14.1 g/dL 4 Unknown COMPLETE BLOOD COUNT 6077233 HCT DET 42.6 % 4 Unknown COMPLETE BLOOD COUNT 1671235 MCV 92.0 fL 4 Unknown COMPLETE BLOOD COUNT 3038002 MCH 30.5 pg 4 Unknown COMPLETE BLOOD COUNT 8196813 MCHC 33.1 g/dL 4 Unknown COMPLETE BLOOD COUNT 6274417 PLT 222 10e9/L 06/09/19 14 Unknown COMPLETE BLOOD COUNT 6565437 MPV 10.8 fL 4 Unknown COMPLETE BLOOD COUNT 1183662 SAMIR % 60.8 % 4 Unknown COMPLETE BLOOD COUNT 7018861 LY % 29.2 % 4 Unknown COMPLETE BLOOD COUNT 5183454 MON % 7.6 % 4 Unknown COMPLETE BLOOD COUNT 4209258 EOS % 2.3 % 4 Unknown COMPLETE BLOOD COUNT 3868348 BASO % 0.1 % 4 Unknown COMPLETE BLOOD COUNT 6544754 RDW 13.7 % 4 Unknown COMPLETE BLOOD COUNT 5635657 ABS SAMIR 4.99 10e9/L 014 Unknown COMPLETE BLOOD COUNT [id number] ABS LYMPH 2.39 10e9/L 014 Unknown COMPLETE BLOOD COUNT 2134180 ABS MONO 0.62 10e9/L 014 Unknown COMPLETE BLOOD COUNT 6557445 ABS EOS 0.19 10e9/L 014 Unknown COMPLETE BLOOD COUNT 8131634 ABS BASO 0.01 10e9/L 014 Unknown COMPLETE BLOOD COUNT 2466011 RDW-SD 45.2 fL 4 Unknown LIPID GROUP 55436 HDL TEST 40 MG/DL 11/11/2012 Unknown LIPID GROUP 54446 TRIG 153 MG/DL 11/11/2012 Unknown LIPID GROUP 58963 TEST LDL 71 MG/DL 11/11/2012 Unknown LIPID GROUP 05296 CHOL 142 MG/DL 11/11/2012 Unknown LIPID GROUP 00566 RCHOL/HDL 3.55 RATIO 11/11/2012 Unknow n GFR CALC 9468878 GFR AA >60 ML/MIN 11/11/2012 Unknown GFR CALC 1960159 GFR NON-AA 57.0L ML/MIN 11/11/2012 Unkno wn HEMOGLOBIN A1C (GLYCOSYLATED) 2797514 A1C [facility] 74695-9 5.9 % 11/11/2012 Unknown THYROID STIMULATING HORMONE 79010 TSH 2.439 uIU/ML 11/11/2012 Unknown COMPLETE BLOOD COUNT 6017541 WBC 8.5 10e9/L 11/12/19 13 Unknown COMPLETE BLOOD COUNT 2063974 RBC 4.42 10e12/L 2012 Unknown COMPLETE BLOOD COUNT 9524604 HGB 13.7 g/dL 3 Unknown COMPLETE BLOOD COUNT 4416249 HCT DET 41.3 % 3 Unknown COMPLETE BLOOD COUNT 0495743 MCV 93.4 fL 3 Unknown COMPLETE BLOOD COUNT 6468569 MCH 31.0 pg 3 Unknown COMPLETE BLOOD COUNT 0829598 MCHC 33.2 g/dL 3 Unknown COMPLETE BLOOD COUNT 2733498 PLT 220 10e9/L 11/12/19 13 Unknown COMPLETE BLOOD COUNT 4802285 MPV 10.8 fL 3 Unknown COMPLETE BLOOD COUNT 4297663 SAMIR % 60.4 % 3 Unknown COMPLETE BLOOD COUNT 4742109 LY % 28.7 % 3 Unknown COMPLETE BLOOD COUNT 7293331 MON % 8.0 % 3 Unknown COMPLETE BLOOD COUNT 0085313 EOS % 2.8 % 3 Unknown COMPLETE BLOOD COUNT 2673322 BASO % 0.1 % 3 Unknown COMPLETE BLOOD COUNT 4841630 RDW 13.7 % 3 Unknown COMPLETE BLOOD COUNT 5152611 ABS SAMIR 5.13 10e9/L 013 Unknown COMPLETE BLOOD COUNT 2379589 ABS LYMPH 2.44 10e9/L 013 Unknown COMPLETE BLOOD COUNT 3170164 ABS MONO 0.68 10e9/L 013 Unknown COMPLETE BLOOD COUNT 2575442 ABS EOS 0.24 10e9/L 013 Unknown COMPLETE BLOOD COUNT 5757103 ABS BASO 0.01 10e9/L 013 Unknown COMPLETE BLOOD COUNT 5998533 RDW-SD 45.6 fL 3 Unknown COMPREHENSIVE METABOLIC 90675 AST 19 U/L 2012 Unknown COMPREHENSIVE METABOLIC 61658 ALT 28 IU/L 2012 Unknown COMPREHENSIVE METABOLIC 69182 BUN 31 MG/DL 2012 Unknown COMPREHENSIVE METABOLIC 90760 ALBUMIN 4.7 GM/DL 2012 Unknown COMPREHENSIVE METABOLIC 70738 CHLORIDE 106 MMOL/L 11/11 Unknown COMPREHENSIVE METABOLIC 79845 BILI TOT 0.5 MG/DL 2012 Unknown COMPREHENSIVE METABOLIC 42517 ALK PHOS 64 U/L 2012 Unknown COMPREHENSIVE METABOLIC 97091 SODIUM 136 MMOL/L 11/11 Unknown COMPREHENSIVE METABOLIC 25356 CREATININE 1.27 MG/DL 11/2012 Unknown COMPREHENSIVE METABOLIC 31506 CALCIUM 9.4 MG/DL 2012 Unknown COMPREHENSIVE METABOLIC 52219 POTASSIUM 4.9 MMOL/L 11/11 Unknown COMPREHENSIVE METABOLIC 91592 PROT TOT 6.7 GM/DL 2012 Unknown COMPREHENSIVE METABOLIC 53707 Glucose 108 MG/DL 2012 Unknown COMPREHENSIVE METABOLIC 31544 BICARB 21 MMOL/L 2012 Unknown COMPREHENSIVE METABOLIC 75645 ANION GAP 9 MEQ/L 2012 Unknown THYROID STIMULATING HORMONE 65130 TSH 2.572 uIU/ML 05/04/2012 Unknown COMPLETE BLOOD COUNT 4897382 WBC 9.3 10e9/L 05/04/19 13 Unknown COMPLETE BLOOD COUNT 6094311 RBC 4.43 10e12/L 2012 Unknown COMPLETE BLOOD COUNT 9230690 HGB 14.2 g/dL 3 Unknown COMPLETE BLOOD COUNT 8053348 HCT DET 41.1 % 3 Unknown COMPLETE BLOOD COUNT 8082690 MCV 92.8 fL 3 Unknown COMPLETE BLOOD COUNT 7406291 MCH 32.1 pg 3 Unknown COMPLETE BLOOD COUNT 9860862 MCHC 34.5 g/dL 3 Unknown COMPLETE BLOOD COUNT 0253645 PLT 193 10e9/L 05/04/19 13 Unknown COMPLETE BLOOD COUNT 9126272 MPV 10.8 fL 3 Unknown COMPLETE BLOOD COUNT 6514803 SAMIR % 63.0 % 3 Unknown COMPLETE BLOOD COUNT 9545500 LY % 25.3 % 3 Unknown COMPLETE BLOOD COUNT 9963255 MON % 9.1 % 3 Unknown COMPLETE BLOOD COUNT [id number] EOS % 2.5 % 3 Unknown COMPLETE BLOOD COUNT 6318282 BASO % 0.1 % 3 Unknown COMPLETE BLOOD COUNT 5421413 RDW 12.6 % 3 Unknown COMPLETE BLOOD COUNT 8689835 ABS SAMIR 5.86 10e9/L 013 Unknown COMPLETE BLOOD COUNT 2086449 ABS LYMPH 2.35 10e9/L 013 Unknown COMPLETE BLOOD COUNT 8488002 ABS MONO 0.85 10e9/L 013 Unknown COMPLETE BLOOD COUNT 8770838 ABS EOS 0.23 10e9/L 013 Unknown COMPLETE BLOOD COUNT 4956592 ABS BASO 0.01 10e9/L 013 Unknown COMPLETE BLOOD COUNT 6118679 RDW-SD 41.2 fL 3 Unknown LIPID GROUP 32016 HDL TEST 35 MG/DL 05/04/2012 Unknown LIPID GROUP 50437 TRIG 236 MG/DL 05/04/2012 Unknown LIPID GROUP 65138 TEST LDL 64 MG/DL 05/04/2012 Unknown LIPID GROUP 99053 CHOL 146 MG/DL 05/04/2012 Unknown LIPID GROUP 64903 RCHOL/HDL 4.17 RATIO 05/04/2012 Unknow n COMPREHENSIVE METABOLIC 72561 AST 23 U/L 2012 Unknown COMPREHENSIVE METABOLIC 25390 ALT 33 IU/L 2012 Unknown COMPREHENSIVE METABOLIC 67948 BUN 16 MG/DL 2012 Unknown COMPREHENSIVE METABOLIC 13166 ALBUMIN 4.8 GM/DL 2012 Unknown COMPREHENSIVE METABOLIC 65868 CHLORIDE 104 MMOL/L 05/04 Unknown COMPREHENSIVE METABOLIC 10447 BILI TOT 0.5 MG/DL 2012 Unknown COMPREHENSIVE METABOLIC 01603 ALK PHOS 70 U/L 2012 Unknown COMPREHENSIVE METABOLIC 15097 SODIUM 138 MMOL/L 05/04 Unknown COMPREHENSIVE METABOLIC 02775 CREATININE 1.08 MG/DL 04/07 Unknown COMPREHENSIVE METABOLIC 33457 CALCIUM 9.7 MG/DL 2012 Unknown COMPREHENSIVE METABOLIC 90630 POTASSIUM 4.4 MMOL/L 05/04 Unknown COMPREHENSIVE METABOLIC 78215 PROT TOT 6.8 GM/DL 2012 Unknown COMPREHENSIVE METABOLIC 71434 Glucose 114 MG/DL 2012 Unknown COMPREHENSIVE METABOLIC 31769 BICARB 27 MMOL/L 2012 Unknown COMPREHENSIVE METABOLIC 67066 ANION GAP 7 MEQ/L 2012 Unknown FREE T4 95852 FREE T4 1.11 NG/DL 05/04/2012 Unknown GFR CALC 2757656 GFR AA >60 ML/MIN 05/04/2012 Unknown GFR CALC 4135597 GFR NON-AA >60 ML/MIN 05/04/2012 Unknown GLYCOSYLATED HEMOGLOBIN TEST 48949 A1C HPLC 81032-9 5.8 % 0 10/29/2011 Unknown COMPREHENSIVE METABOLIC 39476 AST 17 U/L 2011 Unknown COMPREHENSIVE METABOLIC 46123 ALT 21 IU/L 2011 Unknown COMPREHENSIVE METABOLIC 14551 BUN 17 MG/DL 2011 Unknown COMPREHENSIVE METABOLIC 80511 ALBUMIN 4.8 GM/DL 2011 Unknown COMPREHENSIVE METABOLIC 69190 CHLORIDE 106 MMOL/L 10/28 Unknown COMPREHENSIVE METABOLIC 53074 BILI TOT 0.6 MG/DL 2011 Unknown COMPREHENSIVE METABOLIC 53136 ALK PHOS 57 U/L 2011 Unknown COMPREHENSIVE METABOLIC 38216 SODIUM 139 MMOL/L 10/28 Unknown COMPREHENSIVE METABOLIC 44037 CREATININE 1.08 MG/DL 10/05 Unknown COMPREHENSIVE METABOLIC 32090 CALCIUM 9.6 MG/DL 2011 Unknown COMPREHENSIVE METABOLIC 24890 POTASSIUM 4.4 MMOL/L 10/28 Unknown COMPREHENSIVE METABOLIC 61390 PROT TOT 6.9 GM/DL 2011 Unknown COMPREHENSIVE METABOLIC 55854 Glucose 104 MG/DL 2011 Unknown COMPREHENSIVE METABOLIC 07171 BICARB 25 MMOL/L 2011 Unknown COMPREHENSIVE METABOLIC 26548 ANION GAP 8 MEQ/L 2011 Unknown LIPID GROUP 35252 HDL TEST 39 MG/DL 10/29/2011 Unknown LIPID GROUP 48881 TRIG 176 MG/DL 10/29/2011 Unknown LIPID GROUP 65588 TEST LDL 70 MG/DL 10/29/2011 Unknown LIPID GROUP 89978 CHOL 144 MG/DL 10/29/2011 Unknown LIPID GROUP 04700 RCHOL/HDL 3.69 RATIO 10/29/2011 Unknow n GFR CALC 1645509 GFR AA >60 ML/MIN 10/29/2011 Unknown GFR CALC 8083323 GFR NON-AA >60 ML/MIN 10/29/2011 Unknown GFR CALC 4168172 GFR AA >60 ML/MIN 03/14/2011 Unknown GFR CALC 0052594 GFR NON-AA >60 ML/MIN 03/14/2011 Unknown GLYCOSYLATED HEMOGLOBIN TEST 46088 A1C HPLC 44227-9 5.7 % 1 05/15/2010 Unknown COMPREHENSIVE METABOLIC 45648 AST 18 U/L 2010 Unknown COMPREHENSIVE METABOLIC 79356 ALT 25 IU/L 2010 Unknown COMPREHENSIVE METABOLIC 18413 BUN 15 MG/DL 2010 Unknown COMPREHENSIVE METABOLIC 83313 ALBUMIN 4.6 GM/DL 2010 Unknown COMPREHENSIVE METABOLIC 21304 CHLORIDE 107 MMOL/L 03/14 Unknown COMPREHENSIVE METABOLIC 28765 BILI TOT 0.6 MG/DL 2010 Unknown COMPREHENSIVE METABOLIC 41277 ALK PHOS 54 U/L 2010 Unknown COMPREHENSIVE METABOLIC 61577 SODIUM 140 MMOL/L 03/14 Unknown COMPREHENSIVE METABOLIC 33071 CREATININE 1.02 MG/DL 12/2010 Unknown COMPREHENSIVE METABOLIC 86416 CALCIUM 9.4 MG/DL 2010 Unknown COMPREHENSIVE METABOLIC 88441 POTASSIUM 4.6 MMOL/L 03/14 Unknown COMPREHENSIVE METABOLIC 06941 PROT TOT 7.0 GM/DL 2010 Unknown COMPREHENSIVE METABOLIC 10546 Glucose 107 MG/DL 2010 Unknown COMPREHENSIVE METABOLIC 28870 BICARB 28 MMOL/L 2010 Unknown COMPREHENSIVE METABOLIC 59865 ANION GAP 5 MEQ/L 2010 Unknown LIPID GROUP 20204 HDL TEST 39 MG/DL 03/14/2011 Unknown LIPID GROUP 16580 TRIG 157 MG/DL 03/14/2011 Unknown LIPID GROUP 86257 TEST LDL 66 MG/DL 03/14/2011 Unknown LIPID GROUP 35230 CHOL 136 MG/DL 03/14/2011 Unknown LIPID GROUP 70638 RCHOL/HDL 3.49 RATIO 03/14/2011 Unknow n GFR CALC 7543104 GFR AA >60 ML/MIN 11/11/2010 Unknown GFR CALC 2381644 GFR NON-AA >60 ML/MIN 11/11/2010 Unknown LIPID GROUP 36493 HDL TEST 39 MG/DL 11/11/2010 Unknown LIPID GROUP 44037 TRIG 212 MG/DL 11/11/2010 Unknown LIPID GROUP 96425 TEST LDL 67 MG/DL 11/11/2010 Unknown LIPID GROUP 64634 CHOL 148 MG/DL 11/11/2010 Unknown LIPID GROUP 21411 RCHOL/HDL 3.79 RATIO 11/11/2010 Unknow n COMPREHENSIVE METABOLIC 22611 AST 17 U/L 2010 Unknown COMPREHENSIVE METABOLIC 99056 ALT 21 IU/L 2010 Unknown COMPREHENSIVE METABOLIC 89500 BUN 16 MG/DL 2010 Unknown COMPREHENSIVE METABOLIC 10899 ALBUMIN 4.6 GM/DL 2010 Unknown COMPREHENSIVE METABOLIC 87351 CHLORIDE 106 MMOL/L 11/11 Unknown COMPREHENSIVE METABOLIC 99366 BILI TOT 0.5 MG/DL 2010 Unknown COMPREHENSIVE METABOLIC 48251 ALK PHOS 61 U/L 2010 Unknown COMPREHENSIVE METABOLIC 86446 SODIUM 139 MMOL/L 11/11 Unknown COMPREHENSIVE METABOLIC 12699 CREATININE 1.00 MG/DL 11/2010 Unknown COMPREHENSIVE METABOLIC 08170 CALCIUM 9.5 MG/DL 2010 Unknown COMPREHENSIVE METABOLIC 42346 POTASSIUM 4.5 MMOL/L 11/11 Unknown COMPREHENSIVE METABOLIC 21594 PROT TOT 6.9 GM/DL 2010 Unknown COMPREHENSIVE METABOLIC 30186 Glucose 111 MG/DL 2010 Unknown COMPREHENSIVE METABOLIC 75526 BICARB 26 MMOL/L 2010 Unknown COMPREHENSIVE METABOLIC 03504 ANION GAP 7 MEQ/L 2010 Unknown HEMOGLOBIN A1C (GLYCOSYLATED) 60219 A1C HPLC 69965-5 5.6 % 07/24/2010 Unknown GFR CALC 7634225 GFR AA >60 ML/MIN 07/23/2010 Unknown GFR CALC 4277891 GFR NON-AA >60 ML/MIN 07/23/2010 Unknown COMPREHENSIVE METABOLIC 08054 AST 19 U/L 2010 Unknown COMPREHENSIVE METABOLIC 16105 ALT 33 IU/L 2010 Unknown COMPREHENSIVE METABOLIC 97996 BUN 14 MG/DL 2010 Unknown COMPREHENSIVE METABOLIC 21077 ALBUMIN 4.7 GM/DL 2010 Unknown COMPREHENSIVE METABOLIC 68166 CHLORIDE 107 MMOL/L 07/23 Unknown COMPREHENSIVE METABOLIC 38194 BILI TOT 0.4 MG/DL 2010 Unknown COMPREHENSIVE METABOLIC 73177 ALK PHOS 80 U/L 2010 Unknown COMPREHENSIVE METABOLIC 07652 SODIUM 141 MMOL/L 07/23 Unknown COMPREHENSIVE METABOLIC 08494 CREATININE 0.97 MG/DL 07/05 Unknown COMPREHENSIVE METABOLIC 54607 CALCIUM 9.5 MG/DL 2010 Unknown COMPREHENSIVE METABOLIC 44282 POTASSIUM 4.1 MMOL/L 07/23 Unknown COMPREHENSIVE METABOLIC 32332 PROT TOT 6.8 GM/DL 2010 Unknown COMPREHENSIVE METABOLIC 54797 Glucose 120 MG/DL 2010 Unknown COMPREHENSIVE METABOLIC 75857 BICARB 26 MMOL/L 2010 Unknown COMPREHENSIVE METABOLIC 91929 ANION GAP 8 MEQ/L 2010 Unknown LIPID GROUP 02358 HDL TEST 41 MG/DL 07/23/2010 Unknown LIPID GROUP 30939 TRIG 175 MG/DL 07/23/2010 Unknown LIPID GROUP 59527 TEST LDL 72 MG/DL 07/23/2010 Unknown LIPID GROUP 91281 CHOL 148 MG/DL 07/23/2010 Unknown LIPID GROUP 25855 RCHOL/HDL 3.61 RATIO 07/23/2010 Unknow n PSA FREE AND TOTAL 26129|28938 % FREE PSA FOOTNOTE % 011 Unknown PSA FREE AND TOTAL 08688|07360 XPSA TOTAL 0.83 NG/ML 011 Unknown PSA FREE AND TOTAL 26004|85305 XPSA FREE 0.13 NG/ML 04/26/19 11 Unknown VITAMIN D TOTAL (25 HYDROXY) 51394 VIT D TOTL 26 NG/ML 04/22/2010 Unknown TESTOSTERONE TOTAL 69857 TESTOS TO 387 NG/DL 04/19/2010 Unknown GFR CALC 8707326 GFR AA >60 ML/MIN 04/19/2010 Unknown GFR CALC 9437569 GFR NON-AA >60 ML/MIN 04/19/2010 Unknown COMPLETE BLOOD COUNT 11304 WBC 7.0 10e9/L 04/19/19 11 Unknown COMPLETE BLOOD COUNT 92996 RBC 5.07 10e12/L 2010 Unknown COMPLETE BLOOD COUNT 88582 HGB 15.6 g/dL 1 Unknown COMPLETE BLOOD COUNT 25073 HCT DET 46.2 % 1 Unknown COMPLETE BLOOD COUNT 82333 MCV 91.1 fL 1 Unknown COMPLETE BLOOD COUNT 50515 MCH 30.8 pg 1 Unknown COMPLETE BLOOD COUNT 92375 MCHC 33.8 g/dL 1 Unknown COMPLETE BLOOD COUNT 00876 PLT 205 10e9/L 04/19/19 11 Unknown COMPLETE BLOOD COUNT 04377 MPV 11.1 fL 1 Unknown COMPLETE BLOOD COUNT 35567 SAMIR % 62.4 % 1 Unknown COMPLETE BLOOD COUNT 64428 LY % 28.5 % 1 Unknown COMPLETE BLOOD COUNT 82698 MON % 6.9 % 1 Unknown COMPLETE BLOOD COUNT 29664 EOS % 2.1 % 1 Unknown COMPLETE BLOOD COUNT 69498 BASO % 0.1 % 1 Unknown COMPLETE BLOOD COUNT 25547 RDW 13.4 % 1 Unknown COMPLETE BLOOD COUNT 81948 ABS SAMIR 4.37 10e9/L 011 Unknown COMPLETE BLOOD COUNT 58127 ABS LYMPH 2.00 10e9/L 011 Unknown COMPLETE BLOOD COUNT 87185 ABS MONO 0.48 10e9/L 011 Unknown COMPLETE BLOOD COUNT 54872 ABS EOS 0.15 10e9/L 011 Unknown COMPLETE BLOOD COUNT 74884 ABS BASO 0.01 10e9/L 011 Unknown COMPLETE BLOOD COUNT 80119 RDW-SD 43.8 fL 1 Unknown LIPID GROUP 13326 HDL TEST 39 MG/DL 04/19/2010 Unknown LIPID GROUP 40321 TRIG 244 MG/DL 04/19/2010 Unknown LIPID GROUP 21780 TEST LDL 168 MG/DL 04/19/2010 Unknown LIPID GROUP 64099 CHOL 256 MG/DL 04/19/2010 Unknown LIPID GROUP 27258 RCHOL/HDL 6.56 RATIO 04/19/2010 Unknow n COMPREHENSIVE METABOLIC 55583 AST 28 U/L 2010 Unknown COMPREHENSIVE METABOLIC 33482 ALT 46 IU/L 2010 Unknown COMPREHENSIVE METABOLIC 94869 BUN 14 MG/DL 2010 Unknown COMPREHENSIVE METABOLIC 78080 ALBUMIN 4.9 GM/DL 2010 Unknown COMPREHENSIVE METABOLIC 43251 CHLORIDE 104 MMOL/L 04/19 Unknown COMPREHENSIVE METABOLIC 85510 BILI TOT 0.8 MG/DL 2010 Unknown COMPREHENSIVE METABOLIC 13169 ALK PHOS 71 U/L 2010 Unknown COMPREHENSIVE METABOLIC 03702 SODIUM 139 MMOL/L 04/19 Unknown COMPREHENSIVE METABOLIC 59057 CREATININE 1.06 MG/DL 04/06 Unknown COMPREHENSIVE METABOLIC 33671 CALCIUM 9.9 MG/DL 2010 Unknown COMPREHENSIVE METABOLIC 09015 POTASSIUM 4.3 MMOL/L 04/19 Unknown COMPREHENSIVE METABOLIC 13027 PROT TOT 7.2 GM/DL 2010 Unknown COMPREHENSIVE METABOLIC 10756 Glucose 99 MG/DL 2010 Unknown COMPREHENSIVE METABOLIC 88098 BICARB 28 MMOL/L 2010 Unknown COMPREHENSIVE METABOLIC 53817 ANION GAP 7 MEQ/L 2010 Unknown FREE T4 57052 FREE T4 1.26 NG/DL 04/19/2010 Unknown Procedures Procedure Codes Date ROUTINE VENIPUNCTURE CPT-4: 41316 05/24/2019 COMPREHEN METABOLIC PANEL CPT-4: 88289 05/24/2019 A1C HPLC CPT-4: 30438 05/24/2019 FLU VACC PRSV FREE INC ANTIG 65 AND OLDER CPT-4: 54134 01/26/2019 FLU VACC PRSV FREE INC ANTIG 65 AND OLDER CPT-4: 95681 01/26/2019 ADMIN INFLUENZA VIRUS VAC CPT-4: G0008 01/26/2019 ROUTINE VENIPUNCTURE CPT-4: 72039 01/26/2019 COMPREHEN METABOLIC PANEL CPT-4: 61423 01/26/2019 COMPLETE CBC W/AUTO DIFF WBC CPT-4: 50887 01/26/2019 LIPID PANEL CPT-4: 24041 01/26/2019 A1C HPLC CPT-4: 90719 01/26/2019 ROUTINE VENIPUNCTURE CPT-4: 10727 09/30/2018 METABOLIC PANEL TOTAL CA CPT-4: 99727 09/30/2018 URINALYSIS NONAUTO W/O SCOPE CPT-4: 24975 08/19/2018 URINE CULTURE/ COLONY COUNT CPT-4: 71957 08/19/2018 MICROALBUMIN QUANTITATIVE CPT-4: 57849 08/19/2018 ROUTINE VENIPUNCTURE CPT-4: 28664 08/16/2018 ASSAY THYROID STIM HORMONE CPT-4: 32945 08/16/2018 COMPREHEN METABOLIC PANEL CPT-4: 06998 08/16/2018 COMPLETE CBC W/AUTO DIFF WBC CPT-4: 94226 08/16/2018 LIPID PANEL CPT-4: 14681 08/16/2018 A1C HPLC CPT-4: 44763 08/16/2018 LIPID PANEL CPT-4: 69591 05/05/2018 COMPREHEN METABOLIC PANEL CPT-4: 11803 05/05/2018 ROUTINE VENIPUNCTURE CPT-4: 60485 05/05/2018 A1C HPLC CPT-4: 72145 05/05/2018 COMPLETE CBC W/AUTO DIFF WBC CPT-4: 37442 05/05/2018 ASSAY THYROID STIM HORMONE CPT-4: 00338 05/05/2018 MICROALBUMIN QUANTITATIVE CPT-4: 65543 01/19/2018 PRESCRIP TRANSMIT VIA ERX SY CPT-4: G8553 01/19/2018 ROUTINE VENIPUNCTURE CPT-4: 99583 01/13/2018 COMPREHEN METABOLIC PANEL CPT-4: 41711 01/13/2018 A1C HPLC CPT-4: 43595 01/13/2018 LIPID PANEL CPT-4: 13910 01/13/2018 ASSAY OF PSA TOTAL CPT-4: 19371 01/13/2018 ASSAY THYROID STIM HORMONE CPT-4: 88595 01/13/2018 ROUTINE VENIPUNCTURE CPT-4: 83099 10/06/2017 COMPREHEN METABOLIC PANEL CPT-4: 33078 10/06/2017 COMPLETE CBC W/AUTO DIFF WBC CPT-4: 61386 10/06/2017 LIPID PANEL CPT-4: 98853 10/06/2017 A1C HPLC CPT-4: 82196 10/06/2017 VITAMIN B-12 CPT-4: 91477 10/06/2017 DESTRUCT PREMALG LESION (Cryosurgery) CPT-4: 79821 DESTRUCT PREMALG LES 2-14 CPT-4: 14604 04/23/2017 PRESCRIP TRANSMIT VIA ERX SY CPT-4: G8553 03/11/2017 ROUTINE VENIPUNCTURE CPT-4: 31769 03/05/2017 ASSAY OF FREE THYROXINE CPT-4: 02361 03/05/2017 ASSAY THYROID STIM HORMONE CPT-4: 37025 03/05/2017 COMPREHEN METABOLIC PANEL CPT-4: 96664 03/05/2017 COMPLETE CBC W/AUTO DIFF WBC CPT-4: 94343 03/05/2017 LIPID PANEL CPT-4: 11033 03/05/2017 A1C HPLC CPT-4: 60552 03/05/2017 ROUTINE VENIPUNCTURE CPT-4: 99619 06/16/2016 ASSAY OF FREE THYROXINE CPT-4: 25517 06/16/2016 ASSAY THYROID STIM HORMONE CPT-4: 54715 06/16/2016 COMPREHEN METABOLIC PANEL CPT-4: 79992 06/16/2016 COMPLETE CBC W/AUTO DIFF WBC CPT-4: 00739 06/16/2016 LIPID PANEL CPT-4: 10345 06/16/2016 A1C HPLC CPT-4: 27783 06/16/2016 ROUTINE VENIPUNCTURE CPT-4: 65637 03/06/2016 ASSAY OF FREE THYROXINE CPT-4: 85074 03/06/2016 ASSAY THYROID STIM HORMONE CPT-4: 50485 03/06/2016 COMPREHEN METABOLIC PANEL CPT-4: 72259 03/06/2016 COMPLETE CBC W/AUTO DIFF WBC CPT-4: 82769 03/06/2016 LIPID PANEL CPT-4: 10242 03/06/2016 A1C HPLC CPT-4: 17358 03/06/2016 PRESCRIP TRANSMIT VIA ERX SY CPT-4: G8553 09/10/2015 PNEUMOCOCCAL VACC 23 ROSANNE IM CPT-4: 41016 09/06/2015 ADMIN PNEUMOCOCCAL VACCINE CPT-4: G0009 09/06/2015 ROUTINE VENIPUNCTURE CPT-4: 62034 08/31/2015 COMPREHEN METABOLIC PANEL CPT-4: 48196 08/31/2015 COMPLETE CBC W/AUTO DIFF WBC CPT-4: 65573 08/31/2015 LIPID PANEL CPT-4: 14949 08/31/2015 ASSAY OF PSA TOTAL CPT-4: 25626 08/31/2015 A1C HPLC CPT-4: 75021 08/31/2015 ASSAY OF FREE THYROXINE CPT-4: 96438 08/31/2015 ASSAY THYROID STIM HORMONE CPT-4: 58663 08/31/2015 PRESCRIP TRANSMIT VIA ERX SY CPT-4: G8553 06/29/2015 FLU VACC PRSV FREE INC ANTIG 65 AND OLDER CPT-4: 47100 01/17/2015 PNEUMOCOCCAL VACC 13 ROSANNE IM CPT-4: 85931 01/17/2015 ADMIN INFLUENZA VIRUS VAC CPT-4: G0008 01/17/2015 ADMIN PNEUMOCOCCAL VACCINE CPT-4: G0009 01/17/2015 DESTRUCT PREMALG LESION (Cryosurgery) CPT-4: 86554 PRESCRIP TRANSMIT VIA ERX SY CPT-4: G8553 01/17/2015 ROUTINE VENIPUNCTURE CPT-4: 72418 01/12/2015 COMPREHEN METABOLIC PANEL CPT-4: 60798 01/12/2015 COMPLETE CBC W/AUTO DIFF WBC CPT-4: 20249 01/12/2015 LIPID PANEL CPT-4: 88805 01/12/2015 A1C HPLC CPT-4: 03973 01/12/2015 DESTRUCT PREMALG LESION (Cryosurgery) CPT-4: 73938 ROUTINE VENIPUNCTURE CPT-4: 99510 08/15/2014 COMPREHEN METABOLIC PANEL CPT-4: 57542 08/15/2014 COMPLETE CBC W/AUTO DIFF WBC CPT-4: 54943 08/15/2014 LIPID PANEL CPT-4: 71005 08/15/2014 A1C HPLC CPT-4: 06073 08/15/2014 ASSAY OF PSA TOTAL CPT-4: 08989 08/15/2014 ASSAY OF FREE THYROXINE CPT-4: 22754 08/15/2014 ASSAY THYROID STIM HORMONE CPT-4: 57626 08/15/2014 ROUTINE VENIPUNCTURE CPT-4: 74078 12/14/2013 ASSAY OF FREE THYROXINE CPT-4: 40647 12/14/2013 ASSAY THYROID STIM HORMONE CPT-4: 38753 12/14/2013 COMPREHEN METABOLIC PANEL CPT-4: 07591 12/14/2013 COMPLETE CBC W/AUTO DIFF WBC CPT-4: 47131 12/14/2013 LIPID PANEL CPT-4: 11717 12/14/2013 A1C HPLC CPT-4: 23468 12/14/2013 ROUTINE VENIPUNCTURE CPT-4: 85540 06/08/2013 ASSAY OF FREE THYROXINE CPT-4: 43951 06/08/2013 ASSAY THYROID STIM HORMONE CPT-4: 15721 06/08/2013 COMPREHEN METABOLIC PANEL CPT-4: 90255 06/08/2013 COMPLETE CBC W/AUTO DIFF WBC CPT-4: 53173 06/08/2013 LIPID PANEL CPT-4: 90696 06/08/2013 A1C HPLC CPT-4: 53014 06/08/2013 ROUTINE VENIPUNCTURE CPT-4: 71588 11/11/2012 COMPREHEN METABOLIC PANEL CPT-4: 99303 11/11/2012 COMPLETE CBC W/AUTO DIFF WBC CPT-4: 85052 11/11/2012 LIPID PANEL CPT-4: 18018 11/11/2012 A1C GLYCOSYLATED HEMOGLOBIN TEST CPT-4: 06932 013 ASSAY THYROID STIM HORMONE CPT-4: 96671 11/11/2012 ROUTINE VENIPUNCTURE CPT-4: 89401 05/04/2012 ASSAY OF FREE THYROXINE CPT-4: 46619 05/04/2012 ASSAY THYROID STIM HORMONE CPT-4: 92421 05/04/2012 COMPREHEN METABOLIC PANEL CPT-4: 86605 05/04/2012 COMPLETE CBC W/AUTO DIFF WBC CPT-4: 34565 05/04/2012 LIPID PANEL CPT-4: 25250 05/04/2012 DESTRUCT PREMALG LESION (Cryosurgery) CPT-4: 32528 DESTRUCT PREMALG LES 2-14 CPT-4: 66572 03/02/2012 ROUTINE VENIPUNCTURE CPT-4: 53915 10/29/2011 COMPREHEN METABOLIC PANEL CPT-4: 87852 10/29/2011 LIPID PANEL CPT-4: 11087 10/29/2011 A1C GLYCOSYLATED HEMOGLOBIN TEST CPT-4: 18922 012 ROUTINE VENIPUNCTURE CPT-4: 94875 07/29/2011 COMPREHEN METABOLIC PANEL CPT-4: 81458 07/29/2011 LIPID PANEL CPT-4: 70935 07/29/2011 A1C GLYCOSYLATED HEMOGLOBIN TEST CPT-4: 48448 012 ROUTINE VENIPUNCTURE CPT-4: 32460 03/14/2011 COMPREHEN METABOLIC PANEL CPT-4: 40453 03/14/2011 LIPID PANEL CPT-4: 34864 03/14/2011 A1C GLYCOSYLATED HEMOGLOBIN TEST CPT-4: 47461 011 ROUTINE VENIPUNCTURE CPT-4: 44126 11/11/2010 COMPREHEN METABOLIC PANEL CPT-4: 06067 11/11/2010 LIPID PANEL CPT-4: 43769 11/11/2010 URINE CULTURE/ COLONY COUNT CPT-4: 33089 11/11/2010 URINALYSIS NONAUTO W/O SCOPE CPT-4: 57262 10/29/2010 URINE CULTURE/ COLONY COUNT CPT-4: 09617 10/29/2010 LIPID PANEL CPT-4: 86875 07/23/2010 COMPREHEN METABOLIC PANEL CPT-4: 47347 07/23/2010 ROUTINE VENIPUNCTURE CPT-4: 32588 07/23/2010 ROUTINE VENIPUNCTURE CPT-4: 37661 04/26/2010 PSA FREE AND TOTAL CPT-4: 06355|31405 04/26/2010 OCCULT BLOOD FECES CPT-4: 41016 04/24/2010 ROUTINE VENIPUNCTURE CPT-4: 90298 04/19/2010 COMPLETE CBC W/AUTO DIFF WBC CPT-4: 24045 04/19/2010 COMPREHEN METABOLIC PANEL CPT-4: 13245 04/19/2010 LIPID PANEL CPT-4: 51880 04/19/2010 TESTOSTERONE TOTAL - MALE CPT-4: 99707 04/19/2010 ASSAY THYROID STIM HORMONE CPT-4: 31075 04/19/2010 ASSAY OF FREE THYROXINE CPT-4: 99732 04/19/2010 VITAMIN D TOTAL (25 HYDROXY) CPT-4: 62840 04/19/2010 Vital Signs Date Vital 06/02/2019 Blood Pressure 1: 132/80 Code: 8480-6 BMI: 29.5 Code: 16435-7 Heart Rate 1: 64 bpm Height: 6'3" [...] 1: 112/70 Code: 8480-6 BMI: 28.9 Code: 83293-6 Heart Rate 1: 60 bpm Height: 6'3" Respiratory Rate: 20 bpm SpO2: 95% Tempera ture: 36.6 (C) / 97.9 (F) Weight: 231 lbs 01/19/2018 Blood Pressure 1: 150/82 Code: 8480-6 Heart Rate 1: 63 bpm Respiratory Rate: 18 bpm SpO2: 98% Temperature: 36.0 (C) / 96.8 (F) We ight: 225 lbs 10/15/2017 Blood Pressure 1: 126/82 Code: 8480-6 BMI: 27.9 Code: 16877-6 Heart Rate 1: 64 bpm Height: 6'3" Respiratory Rate: 20 bpm SpO2: 96% Tempera ture: 36.7 (C) / 98.1 (F) Weight: 223 lbs 04/23/2017 Blood Pressure 1: 136/74 Code: 8480-6 BMI: 28.7 Code: 10101-9 Heart Rate 1: 76 bpm Height: 6'3" Respiratory Rate: 20 bpm Temperature: 37 .0 (C) / 98.6 (F) Weight: 230 lbs 03/11/2017 Blood Pressure 1: 136/66 Code: 8480-6 BMI: 28.6 Code: 65144-5 Heart Rate 1: 60 bpm Height: 6'3" Respiratory Rate: 20 bpm Temperature: 36 .7 (C) / 98.1 (F) Weight: 229 lbs 07/09/2016 Blood Pressure 1: 132/80 Code: 8480-6 BMI: 27.7 Code: 79320-9 Heart Rate 1: 64 bpm Height: 6'3" Respiratory Rate: 20 bpm SpO2: 96% Tempera ture: 36.9 (C) / 98.4 (F) Weight: 222 lbs 03/10/2016 Blood Pressure 1: 134/78 Code: 8480-6 BMI: 28.5 Code: 40504-4 Heart Rate 1: 60 bpm Height: 6'3" Respiratory Rate: 20 bpm SpO2: 96% Tempera ture: 36.7 (C) / 98.1 (F) Weight: 228 lbs 09/12/2015 Blood Pressure 1: 13678 Code: 8480-6 Heart Rate 1: 84 bpm Height: Respiratory Rate: 24 bpm SpO2: 97% Temperature: 36.4 (C) / 97.6 (F) We ight: 09/10/2015 Blood Pressure 1: 124/76 Code: 8480-6 BMI: 28.5 Code: 24837-6 Heart Rate 1: 76 bpm Height: 6'3" Respiratory Rate: 24 bpm SpO2: 97% Tempera ture: 36.4 (C) / 97.6 (F) Weight: 228 lbs 09/06/2015 Blood Pressure 1: 124/82 Code: 8480-6 BMI: 29.0 Code: 35303-1 Heart Rate 1: 66 bpm Height: 6'3" Respiratory Rate: 20 bpm SpO2: 97% Tempera ture: 36.4 (C) / 97.6 (F) Weight: 232 lbs 06/29/2015 Blood Pressure 1: 124/82 Code: 8480-6 Heart Rate 1: 88 bpm Height: Respiratory Rate: 20 bpm Temperature: 36.7 (C) / 98.1 (F) Weight: 01/17/2015 Blood Pressure 1: 124/78 Code: 8480-6 BMI: 27.7 Code: 68796-8 Heart Rate 1: 76 bpm Height: 6'3" Respiratory Rate: 20 bpm Temperature: 36 .6 (C) / 97.8 (F) Weight: 222 lbs 09/19/2014 Blood Pressure 1: 128/80 Code: 8480-6 BMI: 27.4 Code: 19491-7 Heart Rate 1: 64 bpm Height: 6'3" Respiratory Rate: 20 bpm Temperature: 36 .4 (C) / 97.6 (F) Weight: 219 lbs 10/17/2013 Blood Pressure 1: 116/70 Code: 8480-6 Heart Rate 1: 88 bpm Respiratory Rate: 20 bpm Temperature: 36.9 (C) / 98.4 (F) Weight: 220 lbs 09/23/2013 Blood Pressure 1: 124/80 Code: 8480-6 BMI: 28.7 Code: 21146-2 Heart Rate 1: 76 bpm Height: 6'3" Respiratory Rate: 20 bpm Temperature: 36 .8 (C) / 98.2 (F) Weight: 230 lbs 07/22/2013 Blood Pressure 1: 128/70 Code: 8480-6 art Rate 1: 78 bpm 06/20/2013 Blood Pressure 1: 144/86 Code: 8480-6 BMI: 28.7 Code: 39307-4 Heart Rate 1: 92 bpm Height: 6'3" Respiratory Rate: 20 bpm Temperature: 36 .4 (C) / 97.6 (F) Weight: 230 lbs 11/25/2012 Blood Pressure 1: 128/80 Code: 8480-6 BMI: 27.5 Code: 51889-9 Heart Rate 1: 92 bpm Height: 6'3" Respiratory Rate: 20 bpm Temperature: 36 .8 (C) / 98.3 (F) Weight: 220 lbs 08/27/2012 Blood Pressure 1: 142/80 Code: 8480-6 BMI: 27.7 Code: 16192-6 Heart Rate 1: 76 bpm Height: 6'3" Respiratory Rate: 20 bpm Temperature: 36 .8 (C) / 98.3 (F) Weight: 222 lbs 05/11/2012 Blood Pressure 1: 136/80 Code: 8480-6 BMI: 27.7 Code: 11706-7 Heart Rate 1: 76 bpm Height: 6'3" Respiratory Rate: 20 bpm Temperature: 36 .8 (C) / 98.3 (F) Weight: 222 lbs 03/02/2012 Blood Pressure 1: 136/70 Code: 8480-6 BMI: 28.0 Code: 58639-5 Heart Rate 1: 80 bpm Height: 6'3" Respiratory Rate: 20 bpm Temperature: 36 .6 (C) / 97.8 (F) Weight: 224 lbs 12/11/2011 Blood Pressure 1: 142/80 Code: 8480-6 BMI: 27.1 Code: 99162-5 Heart Rate 1: 84 bpm Height: 6'3" Respiratory Rate: 20 bpm Temperature: 36 .9 (C) / 98.4 (F) Weight: 217 lbs 08/14/2011 Blood Pressure 1: 130/82 Code: 8480-6 He art Rate 1: 64 bpm 07/29/2011 Blood Pressure 1: 132/64 Code: 8480-6 BMI: 26.7 Code: 60378-4 Heart Rate 1: 72 bpm Height: 6'3" [...] 1: 142/88 Code: 8480-6 BMI: 26.4 Code: 80932-3 Heart Rate 1: 80 bpm Height: 6'3" [...] labs Encounters Encounter Performer Location Codes Date ([id number]) OFFICE/OUTPATIENT VISIT EST Diagnosis: Essential (primary) hypertension[ICD10: I10] Diagnosis: Gastro-esophageal reflux disease without esophagitis[ICD10: K21.9] Diagnosis: Type 2 diabetes mellitus with hyperglycemia[ICD10: E11.65] Najma MCARTHUR Matilda [facility] [email or web address] CPT-4: 09252 06/02/2019 ([id number]) NURSE/OUTPATIENT VISIT EST Diagnosis: Type 2 diabetes mellitus without complications[ICD10: E11.9] Diagnosis: Essential (primary) hypertension[ICD10: I10] Diagnosis: Mixed hyperlipidemia[ICD10: E78.2] Najma GODINEZ [employer] CPT-4: 53344 05/24/2019 ([id number]) OFFICE/OUTPATIENT VISIT EST Diagnosis: Essential (primary) hypertension[ICD10: I10] Diagnosis: Type 2 diabetes mellitus without complications[ICD10: E11.9] Diagnosis: Mixed hyperlipidemia[ICD10: E78.2] Najma GODINEZ [employer] CPT-4: 76622 01/31/2019 ([id number]) NURSE/OUTPATIENT VISIT EST Diagnosis: Mixed hyperlipidemia[ICD10: E78.2] Diagnosis: Type 2 diabetes mellitus without complications[ICD10: E11.9] Diagnosis: Essential (primary) hypertension[ICD10: I10] Diagnosis: Chronic kidney disease, unspecified[ICD10: N18.9] Najma MCARTHUR Matilda [email or web address] CPT-4: 59820 01/26/2019 ([id number]) NURSE/OUTPATIENT VISIT EST Diagnosis: Chronic kidney disease, unspecified[ICD10: N18.9] Diagnosis: Essential (primary) hypertension[ICD10: I10] Najma MCARTHUR AmeenaMatilde [email or web address] CPT-4: 40957 09/30/2018 ([id number]) OFFICE/OUTPATIENT VISIT EST Diagnosis: Essential (primary) hypertension[ICD10: I10] Diagnosis: Type 2 diabetes mellitus without complications[ICD10: E11.9] Diagnosis: Mixed hyperlipidemia[ICD10: E78.2] Diagnosis: Unspecified kidney failure[ICD10: N19] Najma OG [email or web address] CPT-4: 00566 08/19/2018 ([id number]) NURSE/OUTPATIENT VISIT EST Diagnosis: Essential (primary) hypertension[ICD10: I10] Diagnosis: Type 1 diabetes mellitus with unspecified complications[ICD10: E10.8] Diagnosis: Mixed hyperlipidemia[ICD10: E78.2] Najma GODINEZ [employer]Matilde [employer] CPT-4: 68317 08/16/2018 ([id number]) OFFICE/OUTPATIENT VISIT EST Diagnosis: Essential (primary) hypertension[ICD10: I10] Diagnosis: Type 2 diabetes mellitus without complications[ICD10: E11.9] Diagnosis: Mixed hyperlipidemia[ICD10: E78.2] Najma GODINEZ [employer] CPT-4: 58259 05/10/2018 ([id number]) NURSE/OUTPATIENT VISIT EST Diagnosis: Essential (primary) hypertension[ICD10: I10] Diagnosis: Mixed hyperlipidemia[ICD10: E78.2] Diagnosis: Type 1 diabetes mellitus with unspecified complications[ICD10: E10.8] Najma OG [email or web address] CPT-4: 56193 05/05/2018 ([id number]) OFFICE/OUTPATIENT VISIT EST Diagnosis: Type 2 diabetes mellitus without complications[ICD10: E11.9] Diagnosis: Mixed hyperlipidemia[ICD10: E78.2] Diagnosis: Nicotine dependence, unspecified, uncomplicated[ICD10: F17.200] Diagnosis: Essential (primary) hypertension[ICD10: I10] Najma OG [email or web address] CPT-4: 62011 01/19/2018 ([id number]) NURSE/OUTPATIENT VISIT EST Diagnosis: Type 1 diabetes mellitus with unspecified complications[ICD10: E10.8] Diagnosis: Essential (primary) hypertension[ICD10: I10] Diagnosis: Male erectile disorder[ICD10: F52.21] Diagnosis: Encounter for screening for malignant neoplasm of prostate[ICD10: Z12.5] Najma OG [facility] CPT-4: 20182 01/13/2018 ([id number]) OFFICE/OUTPATIENT VISIT EST Diagnosis: Type 2 diabetes mellitus without complications[ICD10: E11.9] Diagnosis: Essential (primary) hypertension[ICD10: I10] Diagnosis: Mixed hyperlipidemia[ICD10: E78.2] Najma OG [facility] CPT-4: 57472 10/15/2017 ([id number]) NURSE/OUTPATIENT VISIT EST Diagnosis: Type 2 diabetes mellitus without complications[ICD10: E11.9] Diagnosis: Mixed hyperlipidemia[ICD10: E78.2] Diagnosis: Essential (primary) hypertension[ICD10: I10] Diagnosis: Glossitis[ICD10: K14.0] Najma THAKKAR [facility] CPT-4: 57945 10/06/2017 ([id number]) OFFICE/OUTPATIENT VISIT EST Diagnosis: Type 2 diabetes mellitus without complications[ICD10: E11.9] Diagnosis: Mixed hyperlipidemia[ICD10: E78.2] Diagnosis: Essential (primary) hypertension[ICD10: I10] Najma OG [facility] CPT-4: 34016 03/11/2017 ([id number]) OFFICE/OUTPATIENT VISIT EST Diagnosis: Type 1 diabetes mellitus with unspecified complications[ICD10: E10.8] Diagnosis: Mixed hyperlipidemia[ICD10: E78.2] Diagnosis: Essential (primary) hypertension[ICD10: I10] Diagnosis: Other fatigue[ICD10: R53.83] Najma OG [facility] CPT-4: 60336 03/05/2017 ([id number]) OFFICE/OUTPATIENT VISIT EST Diagnosis: Type 2 diabetes mellitus without complications[ICD10: E11.9] Diagnosis: Mixed hyperlipidemia[ICD10: E78.2] Diagnosis: Essential (primary) hypertension[ICD10: I10] Diagnosis: Nicotine dependence, unspecified, uncomplicated[ICD10: F17.200] Najma OG [facility] CPT-4: 45677 07/09/2016 ([id number]) OFFICE/OUTPATIENT VISIT EST Diagnosis: Type 1 diabetes mellitus with unspecified complications[ICD10: E10.8] Diagnosis: Mixed hyperlipidemia[ICD10: E78.2] Diagnosis: Essential (primary) hypertension[ICD10: I10] Najma OG [facility] CPT-4: 85244 06/16/2016 ([id number]) OFFICE/OUTPATIENT VISIT EST Diagnosis: Type 2 diabetes mellitus without complications[ICD10: E11.9] Diagnosis: Mixed hyperlipidemia[ICD10: E78.2] Diagnosis: Essential (primary) hypertension[ICD10: I10] Najma OG [facility] CPT-4: 81329 03/10/2016 ([id number]) OFFICE/OUTPATIENT VISIT EST Diagnosis: Type 1 diabetes mellitus with unspecified complications[ICD10: E10.8] Diagnosis: Mixed hyperlipidemia[ICD10: E78.2] Diagnosis: Essential (primary) hypertension[ICD10: I10] Najma OG [facility] CPT-4: 65213 03/06/2016 ([id number]) OFFICE/OUTPATIENT VISIT EST Diagnosis: Bitten or stung by nonvenomous insect and other nonvenomous arthropods, subsequent encounter[ICD10: W57.XXXD] Diagnosis: Insect bite (nonvenomous), right thigh, subsequent encounter[ICD10: S70.361D] Barbara OG [facility] CPT-4: 86702 11/2015 ([id number]) OFFICE/OUTPATIENT VISIT EST Diagnosis: Bitten or stung by nonvenomous insect and other nonvenomous arthropods, initial encounter[ICD10: W57.XXXA] Diagnosis: Insect bite (nonvenomous), right thigh, initial encounter[ICD10: S70.361A] Barbara Grey [employer] [facility] CPT-4: 59870 09/2015 ([id number]) OFFICE/OUTPATIENT VISIT EST Diagnosis: Mixed hyperlipidemia[ICD10: E78.2] Diagnosis: Essential (primary) hypertension[ICD10: I10] Diagnosis: Type 2 diabetes mellitus without complications[ICD10: E11.9] Diagnosis: Encounter for immunization[ICD10: Z23] Diagnosis: Encounter for screening for malignant neoplasm of colon[ICD10: Z12.11] Diagnosis: Abnormal weight gain[ICD10: R63.5] Barbara Brower MAREVELINA GRETCHEN Matilda OG [facility] CPT-4: 41991 09/06/2015 ([id number]) OFFICE/OUTPATIENT VISIT EST Diagnosis: Type 2 diabetes mellitus without complications[ICD10: E11.9] Diagnosis: Mixed hyperlipidemia[ICD10: E78.2] Diagnosis: Essential (primary) hypertension[ICD10: I10] Diagnosis: Encounter for screening for malignant neoplasm of prostate[ICD10: Z12.5] Diagnosis: Other fatigue[ICD10: R53.83] Najma MCARTHUR Matilda [facility] CPT-4: 71833 08/31/2015 OFFICE/OUTPATIENT VISIT EST Diagnosis: Diarrhea, unspecified[ICD10: R19.7] Henrietta MCCOY Matilda LONG [facility] CPT-4: 06066 06/29/2015 OFFICE/OUTPATIENT VISIT EST Diagnosis: PNEUMOCOCCAL VACCINE[ICD10: Z23] Diagnosis: FLU VACCINE[ICD10: Z23] Diagnosis: Essential (primary) hypertension[ICD10: I10] Diagnosis: Mixed hyperlipidemia[ICD10: E78.2] Diagnosis: Type 1 diabetes mellitus with unspecified complications[ICD10: E10.8] Diagnosis: Actinic keratosis[ICD10: L57.0] Najma MCARTHUR AmeenaMatilde KAHLIL [facility] CPT-4: 89520 01/17/2015 ([id number]) OFFICE/OUTPATIENT VISIT EST Diagnosis: Type 2 diabetes mellitus without complications[ICD10: E11.9] Diagnosis: Impaired fasting glucose[ICD10: R73.01] Diagnosis: Mixed hyperlipidemia[ICD10: E78.2] Diagnosis: Essential (primary) hypertension[ICD10: I10] Najma MCARTHUR AmeenaMatilde [facility] CPT-4: 61884 01/12/2015 ([id number]) OFFICE/OUTPATIENT VISIT EST Diagnosis: - I - HYPERLIPIDEMIA NEC/NOS[ICD9: 272.4] Diagnosis: HYPERTENSION[ICD9: 401.9] Diagnosis: DM W/O COMPLICATION TYPE II[ICD9: 250.00] Diagnosis: ACTINIC KERATOSIS[ICD9: 702.0] Najma MCARTHUR Ameena Matilde [facility] CPT-4: 03264 09/19/2014 ([id number]) OFFICE/OUTPATIENT VISIT EST Diagnosis: HYPERLIPIDEMIA NEC/NOS[ICD9: 272.4] Diagnosis: HYPERTENSION[ICD9: 401.9] Diagnosis: IMPAIRED FASTING GLUCOSE[ICD9: 790.21] Diagnosis: MALAISE AND FATIGUE[ICD9: 780.79] Najma OG [facility] CPT-4: 20658 08/15/2014 ([id number]) OFFICE/OUTPATIENT VISIT EST Diagnosis: HYPERLIPIDEMIA NEC/NOS[ICD9: 272.4] Diagnosis: HYPERTENSION[ICD9: 401.9] Diagnosis: IMPAIRED FASTING GLUCOSE[ICD9: 790.21] Najma LONG [facility] CPT-4: 09504 12/14/2013 ([id number]) OFFICE/OUTPATIENT VISIT EST Diagnosis: Post herpetic neuralgia[ICD9: 053.19] Najma OG [facility] CPT-4: 77439 10/17/2013 OFFICE/OUTPATIENT VISIT EST Diagnosis: Shingles[ICD9: 053.9] Diagnosis: Post herpetic neuralgia[ICD9: 053.19] Jeanie Navarro CLAUDE LONG [facility] CPT-4: 04643 09/23/2013 ([id number]) OFFICE/OUTPATIENT VISIT EST Diagnosis: HYPERTENSION[ICD9: 401.9] Diagnosis: HYPERLIPIDEMIA NEC/NOS[ICD9: 272.4] Diagnosis: IMPAIRED FASTING GLUCOSE[ICD9: 790.21] Najma LONG [facility] CPT-4: 37088 06/20/2013 ([id number]) OFFICE/OUTPATIENT VISIT EST Diagnosis: HYPERLIPIDEMIA NEC/NOS[ICD9: 272.4] Diagnosis: MALAISE AND FATIGUE[ICD9: 780.79] Diagnosis: ROUTINE MEDICAL EXAM[ICD9: V70.0] Diagnosis: HYPERTENSION[ICD9: 401.9] Diagnosis: IMPAIRED FASTING GLUCOSE[ICD9: 790.21] Najma LONG [facility] CPT-4: 87876 06/08/2013 ([id number]) OFFICE/OUTPATIENT VISIT EST Diagnosis: HYPERLIPIDEMIA NEC/NOS[ICD9: 272.4] Diagnosis: HYPERTENSION[ICD9: 401.9] Diagnosis: IMPAIRED FASTING GLUCOSE[ICD9: 790.21] Diagnosis: DIARRHEA[ICD9: 787.91] Najma Grey BRITTNI Stallings [facility] CPT-4: 03124 11/25/2012 ([id number]) OFFICE/OUTPATIENT VISIT EST Diagnosis: HYPERLIPIDEMIA NEC/NOS[ICD9: 272.4] Diagnosis: HYPERTENSION[ICD9: 401.9] Diagnosis: IMPAIRED FASTING GLUCOSE[ICD9: 790.21] Diagnosis: MALAISE AND FATIGUE[ICD9: 780.79] Najma Jenkins AmeenaMatilde [facility] CPT-4: 07702 11/11/2012 OFFICE/OUTPATIENT VISIT EST Diagnosis: Fungal dermatitis[ICD9: 111.9] Diagnosis: Dry skin dermatitis[ICD9: 692.89] Henrietta Jenkins AmeenaMatilde [facility] CPT-4: 46378 08/27/2012 ([id number]) OFFICE/OUTPATIENT VISIT EST Diagnosis: HYPERTENSION[ICD9: 401.9] Diagnosis: HYPERLIPIDEMIA NEC/NOS[ICD9: 272.4] Najma MCCOY AmeenaMatilde [facility] CPT-4: 28419 05/11/2012 ([id number]) OFFICE/OUTPATIENT VISIT EST Diagnosis: HYPERLIPIDEMIA NEC/NOS[ICD9: 272.4] Diagnosis: HYPERTENSION[ICD9: 401.9] Diagnosis: ROUTINE MEDICAL EXAM[ICD9: V70.0] Najma Jenkins AmeenaMatilde [facility] CPT-4: 60128 05/04/2012 ([id number]) OFFICE/OUTPATIENT VISIT EST Diagnosis: HYPERTENSION[ICD9: 401.9] Diagnosis: HYPERLIPIDEMIA NEC/NOS[ICD9: 272.4] Diagnosis: IMPAIRED FASTING GLUCOSE[ICD9: 790.21] Najma CHAPMAN AmeenaMatilde KAHLIL [facility] CPT-4: 00865 12/11/2011 ([id number]) OFFICE/OUTPATIENT VISIT EST Diagnosis: HYPERLIPIDEMIA NEC/NOS[ICD9: 272.4] Diagnosis: HYPERTENSION[ICD9: 401.9] Diagnosis: IMPAIRED FASTING GLUCOSE[ICD9: 790.21] Najma LONGER [facility] CPT-4: 08965 10/29/2011 ([id number]) OFFICE/OUTPATIENT VISIT EST Diagnosis: HYPERTENSION[ICD9: 401.9] Najma SAMSON NDER [facility] CPT-4: 76685 08/14/2011 ([id number]) OFFICE/OUTPATIENT VISIT EST Diagnosis: HYPERTENSION[ICD9: 401.9] Diagnosis: IMPAIRED FASTING GLUCOSE[ICD9: 790.21] Najma [facility]ER [facility] CPT-4: 96148 07/29/2011 ([id number]) OFFICE/OUTPATIENT VISIT EST Diagnosis: HYPERTENSION[ICD9: 401.9] Najma ZARATER [facility] CPT-4: 92669 07/23/2011 ([id number]) OFFICE/OUTPATIENT VISIT EST Diagnosis: HYPERTENSION[ICD9: 401.9] Najma ZARATER [facility] CPT-4: 52355 06/24/2011 OFFICE/OUTPATIENT VISIT EST Diagnosis: HYPERTENSION[ICD9: 401.9] Najma ZARATER DO [facility] CPT-4: 57114 05/20/2011 OFFICE/OUTPATIENT VISIT EST Diagnosis: HYPERTENSION[ICD9: 401.9] Najma SAMSON NDER DO [facility] CPT-4: 18533 04/15/2011 OFFICE/OUTPATIENT VISIT EST Diagnosis: HYPERLIPIDEMIA NEC/NOS[ICD9: 272.4] Diagnosis: IMPAIRED FASTING GLUCOSE[ICD9: 790.21] Najma LONGER [facility] CPT-4: 01115 03/18/2011 ([id number]) OFFICE/OUTPATIENT VISIT EST Najma OG DO [facility] CPT-4: 88013 07/30/2010 ([id number]) PREV VISIT, EST, AGE 40-64 Najma LONGER [facility] CPT-4: 89180 04/24/2010 Plan of Care Planned Activity Notes [...] : K21.9 06/02/2019 Appointment: Najma Og WPtel: [address] [place], [place] [phone] US LAB 05/24/2019 Visit Diagnosis Plan: Essential [...] : E78.2 01/31/2019 Appointment: Najma Og WPtel: [address] [place] [address] US FOLLOW UP 01/31/2019 Appointment: Najma Og WPtel: [address] [place], [place] [phone] US LAB 01/26/2019 Appointment: Najma Og WPtel: [address] [place], [place] [phone] US LAB 09/30/2018 Visit Diagnosis Plan: Unspecified [...] : E11.9 08/19/2018 Appointment: Najma Og WPtel: [address] [place], [place] [phone] US FOLLOW UP 08/19/2018 Appointment: Najma Og WPtel: [address] [place], [place] [phone] US LAB 08/16/2018 Visit Diagnosis Plan: Essential [...] : E78.2 05/10/2018 Appointment: Najma Og WPtel: [address] [place], [place] [phone] FOLLOW UP 05/10/2018 Patient Education: Low Back Pain Exercises: Illustration Completed 05/10/2018 Patient Education: Low Back Pain Exercises Completed 05/10/2018 Appointment: Najma Og WPtel: [address] [place], [place] [phone] [place] LAB 05/05/2018 Visit Diagnosis Plan: Type [...] : E78.2 01/19/2018 Appointment: Najma Og WPtel: [address] [place] [address] FOLLOW UP 01/19/2018 Patient Education: Patient Medication Summary Completed 01/19/2018 Appointment: Najma Og WPtel: [address] [place] [address] US LAB 01/13/2018 Patient Education: Patient Medication [...] : I10 10/15/2017 Appointment: Najma Og WPtel: [address] [place] [address] FOLLOW UP 10/15/2017 Patient Education: Patient Medication Summary Completed 10/15/2017 Appointment: Najma Og WPtel: [address] [place] [address] LAB 10/06/2017 Patient Education: Patient Medication Summary Completed 10/06/2017 Visit Diagnosis Plan: Actinic keratosis Discussion: Cr yotherapy as above ICD-9 : 702.0 ICD-10 : L57.0 04/23/2017 Appointment: Najma Og WPtel: [address] [place] [address] OFFICE SURGERY 04/23/2017 Patient Education: Patient Medication [...] : E78.2 03/11/2017 Appointment: Najma Og WPtel: [address] [place] [address] US FOLLOW UP 03/11/2017 Patient Education: Patient Medication Summary Completed 03/11/2017 Appointment: Najma Og WPtel: [address] [place] [address] LAB 03/05/2017 Patient Education: Patient Medication Summary [...] : F17.200 07/09/2016 Appointment: Najma Og WPtel: [address] [place], [place] [phone] US 07/08 lm ~sl 07/09 confirmed~sl FOLLOW UP 08/2016 Patient Education: Patient Medication Summary Completed 07/09/2016 Appointment: Najma Og WPtel: [address] [place], [place] [phone] US LAB 06/16/2016 Patient Education: Patient Medication Summary Completed 06/16/2016 Visit Plan: Lab discussed Accuchecks maribel ly Lifestyle change for 3mos then check CMP, HbA1C in 3mos Has had flu and pneumonia shot 03/10/2016 Appointment: Najma Og WPtel: [phone] [place], [place] [phone] 03/06 confirmed `sl FOLLOW UP 03/10/2016 Patient Education: Patient Medication Summary Completed 03/10/2016 Appointment: Najma Og WPtel: [address] [place], [place] [phone] US LAB 03/06/2016 Patient Education: Patient Medication Summary Completed 03/06/2016 Referral: Donavon Keller WPtel: [address] [place] [address] [employer] [id number] [place] Referral Completed 10/22/2015 Visit Plan: Tick bite area looks much be tter Continue current rxs and close monitoring Follow up if any new symptoms or worsening appearance 09/12/2015 Appointment: Barbara Brower [address] [place], [place] [phone] 09/10 confirmed~sl FOLLOW UP 09/12/2015 Patient Education: Patient Medication Summary Completed 09/12/2015 Visit Plan: Cover as above 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 topical steroids to calm down the inflammation(suspect most of redness is due to histamine response vs infection) Monitor closely Follow up in 2 days to recheck 09/10/2015 Appointment: Barbara Brower [address] [place] [address] ACUTE ILLNESS 09/10/2015 Patient Education: Patient Medication [...] consider shingles vaccine 09/06/2015 Appointment: Barbara Brower [address] [place], [place] [phone] FOLLOW UP 09/06/2015 Patient Education: Patient Medication Summary Completed 09/06/2015 Care Plan: Referral Order SNOMED-CT : [id number] Pending 09/06/2015 Appointment: Najma Og WPtel: [address] [place], [place] [phone] US LAB 08/31/2015 Patient Education: Patient Medication [...] UC/ER. 06/29/2015 Appointment: Henrietta Lubin WPtel: [address] [place], [place] [phone] ACUTE ILLNESS 06/29/2015 Patient Education: Patient Medication Summary Completed 06/29/2015 Visit Plan: Lab discussed Will keep meds the same Discussed diet/exercise at length Cryotherapy as above to AKs of arms Flu and Prevnar 13 given Trial of revatio per patient request for ED--warned of no nitrates Recheck 4mos 01/17/2015 Appointment: Najma Og WPtel: [address] [place] [address] 01/16 confirmed~sl FOLLOW UP 01/17/2015 Patient Education: Patient Medication Summary Completed 01/17/2015 Appointment: Najma Og WPtel: [address] [place], [place] [phone] US LAB 01/12/2015 Patient Education: Patient Medication Summary Completed 01/12/2015 Visit Plan: Lab discussed Start accuchec ks daily Cryotherapy as above 09/19/2014 Appointment: Najma Og WPtel: [address] [place], [place] [phone] 09/18 confirmed -mf FOLLOW UP 09/19/2014 Patient Education: Patient Medication Summary Completed 09/19/2014 Appointment: Najma Og WPtel: [address] [place], [place] [phone] US LAB 08/15/2014 Patient Education: Patient Medication Summary Completed 08/15/2014 Appointment: Najma Og WPtel: [address] [place], [place] [phone] ACUTE ILLNESS 12/14/2013 Patient Education: Patient Medication Summary Completed 12/14/2013 Visit Plan: Patient using tylenol prn pa in Discussed possible shingles shot for booster in 9-12mos 10/17/2013 Appointment: Najma Og WPtel: [address] [place], [place] [phone] FOLLOW UP 10/17/2013 Patient Education: Patient Medication Summary Completed 10/17/2013 Appointment: Jeanie Briceño WPtel: [address] [place], [place] [phone] ACUTE ILLNESS 09/23/2013 Patient Education: Patient Medication Summary Completed 09/23/2013 Appointment: Najma Og WPtel: [address] [place], [place] [phone] BP CHECK 07/22/2013 Patient Education: Patient Medication Summary Completed 07/22/2013 Visit Plan: Lab discussed Discussed swit arun amlodopine to beta slim to see if helps with tremor BP check in 1mo 06/20/2013 Appointment: Najma Og WPtel: [address] [place] [address] 06/17 no answer FOLLOW UP 06/20/2013 Patient Education: Patient Medication Summary Completed 06/20/2013 Appointment: Najma Og WPtel: [address] [place], [place] [phone] 06/08/2013 Patient Education: Patient Medication Summary Completed 06/08/2013 Visit Plan: BRAT diet and yogurt and gat orade Lab discussed Continue current meds Spot checks on BS 11/25/2012 Appointment: Najma Og WPtel: [address] [place], [place] [phone] 11/24 FOLLOW UP 11/25/2012 Patient Education: Patient Medication Summary Completed 11/25/2012 Appointment: Najma Og WPtel: [address] [place], [place] [phone] [place] LAB 11/11/2012 Patient Education: Patient Medication Summary Completed 11/11/2012 Appointment: Henrietta Lubin WPtel: [address] [place], [place] [id number] WORK IN 08/27/2012 Patient Education: Patient Medication Summary Completed 08/27/2012 Visit Plan: Pt going to get new home BP moniter Continue crestor and restart fish oil and will check fasting lab in 6mos Lab results discussed 05/11/2012 Appointment: Najma Og WPtel: [address] [place], [place] [id number] 05/10 FOLLOW UP 05/11/2012 Patient Education: Patient Medication Summary Completed 05/11/2012 Appointment: Najma Og WPtel: [address] [place], [place] [id number] [place] LAB 05/04/2012 Patient Education: Patient Medication Summary Completed 05/04/2012 Visit Plan: 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 and forehead 03/02/2012 Appointment: Najma Og WPtel: [address] [place], [place] [id number] 03/01 OFFICE SURGERY 03/02/2012 Patient Education: Patient Medication Summary Completed 03/02/2012 Visit Plan: Labs discussed--recheck lab end of Nov/ of Mar Continue current meds and continue to moniter BS daily and BP 1-2 times a week Plan on cryotherapy this fall so can wear longsleeves after procedure See urology 12/11/2011 Appointment: Najma Og WPtel: [address] [place], [place] [phone] FOLLOW UP 12/11/2011 Patient Education: Patient Medication Summary Completed 12/11/2011 Appointment: Najma Og WPtel: [address] [place], [place] [id number] [place] LAB 10/29/2011 Patient Education: Patient Medication Summary Completed 10/29/2011 Appointment: Najma Og WPtel: [address] [place], [place] [id number] BP CHECK 08/14/2011 Patient Education: Patient Medication Summary Completed 08/14/2011 Appointment: Najma Ogtel: [address] [place] [address] ACUTE ILLNESS 07/29/2011 Patient Education: Patient Medication Summary Completed 07/29/2011 Appointment: Najma Og WPtel: [address] [place] [address] BP CHECK 07/23/2011 Patient Education: Patient Medication Summary Completed 07/23/2011 Appointment: Najma Ogtel: [address] [place] [address] BP CHECK 06/24/2011 Patient Education: Patient Medication Summary Completed 06/24/2011 Appointment: Najma Ogtel: [address] [place] [address] BP CHECK 05/20/2011 Patient Education: Patient Medication Summary Completed 05/20/2011 Appointment: Najma Ogtel: [address] [place] [address] BP CHECK 04/29/2011 Patient Education: Patient Medication Summary Completed 04/29/2011 Appointment: Najma Ogtel: [address] [place] [address] BP CHECK 04/15/2011 Patient Education: Patient Medication Summary Completed 04/15/2011 Visit Plan: Continue current meds Add fi sh oil 1gm daily Glucometer given to use for accuchecks prn 03/18/2011 Appointment: Najma Ogtel: [address] [place] [address] FOLLOW UP 03/18/2011 Patient Education: Patient Medication Summary Completed 03/18/2011 Appointment: Najma Ogtel: [address] [place] [address] [place] LAB 03/14/2011 Patient Education: Patient Medication Summary Completed 03/14/2011 Appointment: Najma Og WPtel: [address] [place], [place] [phone] LAB 11/11/2010 Appointment: Najma Og WPtel: [address] [place], [place] [phone] [place] UA 11/11/2010 Patient Education: Patient Medication Summary Completed 11/11/2010 Appointment: Najma Og WPtel: [address] [place], [place] [phone] [place] LAB 10/29/2010 Patient Education: Patient Medication Summary Completed 10/29/2010 Appointment: Najma Og WPtel: [address] [place], [place] [phone] FOLLOW UP 07/30/2010 Patient Education: Patient Medication Summary Completed 07/30/2010 Appointment: Najma Og WPtel: [address] [place], [place] [phone] LAB 07/23/2010 Patient Education: Patient Medication Summary Completed 07/23/2010 Appointment: Najma Og WPtel: [address] [place], [place] [phone] LAB 04/26/2010 Patient Education: Patient Medication Summary Completed 04/26/2010 Visit Plan: Add PSA to lab Restart Crest or at 10mg daily Trial of Wellbutrin to aid in smoking cessation Check Lipids and LFTs in 3mos 04/24/2010 Appointment: Najma Og WPtel: [address] [place], [place] [phone] [place] FOLLOW UP 04/24/2010 Patient Education: Patient Medication Summary Completed 04/24/2010 Appointment: Najma Og WPtel: [address] [place], [place] [phone] [place] LAB 04/19/2010 Patient Education: Patient Medication Summary Completed 04/19/2010 Referral: Donavon Keller WPtel: [address] [place] [address] Drive [id number] [place] Referral Completed Instructions Comment . Lab [...] conservative + labs. CBC & CMP at [facility] Discussed needed oral hydration (preferably [...]
--- OUTSIDE RECORDS SUMMARY | 2019-10-14 22:49 | XMS REPORT | CCD ---
Author Author Inocente Og D.O. Organization [facility] Address [address] [place] [address] Phone Care Team Providers Care Adult Daycare Coordinator Name Role Phone Najma Og D.O. PP Unavailable CCM Unavailable Summary Purpose Interface Exchange Insurance Providers Payer name Policy type / Coverage type Covered green party ID Effective Begin Date Effective End Date [employer] MEDICARE Medicare Part B [id number] Unknown [facility] Medicare Part B [id number] Un known Family history Father Diagnosis Age At Onset Diabetes mellitus Type 2 Unknown Myocardial infarction Unknown Brother Diagnosis Age At Onset Diabetes mellitus Type 2 Unknown Mother Diagnosis Age At Onset Osteoarthritis Unknown Cerebrovascular disease Unknown Social History Social History Element Codes Description Effective Dates Tobacco history SNOMED CT: 342777858 Never smoker 12/21/2014 Marital status Unknown 07/30/2010 [...] hypertension ICD-9: 401.9 ICD-10: I10 07/22/2013 Active Mixed hyperlipidemia ICD-9: 272.2 ICD-10: E78.2 [...] Instructions fenofibrate micronized 134 mg capsule RxNorm: 162345 1 Capsule(s) Oral QD for triglycerides 04/14/2019 07/13/2019 Active amlodipine 5 mg tablet RxNorm: 594981 TAKE 1 TABLET BY MOUTH ON CE DAILY 03/22/2019 06/19/2019 Active metformin ER 500 mg tablet,extended release 24 hr RxNorm: 86 0975 TAKE 1 TABLET BY MOUTH ONCE DAILY 03/15/2019 No Stop Date Active propranolol ER 80 mg capsule,24 hr,extended release RxNorm: 586151 TAKE 1 CAPSULE BY MOUTH ONCE DAILY 03/15/2019 No Stop Date Active amlodipine 5 mg tablet RxNorm: 561082 1 Tablet(s) PO QD 12/27/2018 Inactive fenofibrate micronized 134 mg capsule RxNorm: 481748 TA KE 1 CAPSULE BY MOUTH ONCE DAILY FOR TRIGLYCERIDES 10/11/2018 04/13/2019 Inactive amlodipine 5 mg tablet RxNorm: 104013 1 Tablet(s) PO QD 09/30/2018 Inactive metformin ER 500 mg tablet,extended release 24 hr RxNorm: 86 0975 TAKE 1 TABLET BY MOUTH ONCE DAILY 09/21/2018 03/14/2019 Inactive propranolol ER 80 mg capsule,24 hr,extended release RxNorm: 838910 TAKE 1 CAPSULE BY MOUTH ONCE DAILY 09/21/2018 03/14/2019 Inactive amlodipine 5 mg tablet RxNorm: 467144 1 Tablet(s) PO QD 08/25/2018 Inactive amlodipine 5 mg tablet RxNorm: 399912 1 Tablet(s) PO QD 08/25/2018 Inactive lisinopril 40 mg tablet RxNorm: 080105 TAKE 1 TABLET BY MOUTH O NCE DAILY 07/21/2018 08/24/2018 Inactive fenofibrate micronized 134 mg capsule RxNorm: 199341 TA KE 1 CAPSULE BY MOUTH ONCE DAILY FOR TRIGLYCERIDES 07/12/2018 10/10/2018 Inactive propranolol ER 80 mg capsule,24 hr,extended release RxNorm: 158253 TAKE 1 CAPSULE BY MOUTH ONCE DAILY 06/21/2018 09/20/2018 Inactive lisinopril 40 mg tablet RxNorm: 710544 TAKE 1 TABLET BY MOUTH O NCE DAILY 04/26/2018 07/20/2018 Inactive metformin ER 500 mg tablet,extended release 24 hr RxNorm: 833441 1 Tablet(s) QD 03/31/2018 09/20/2018 Inactive lisinopril 40 mg tablet RxNorm: 897862 TAKE 1 TABLET BY MOUTH O NCE DAILY 01/28/2018 04/25/2018 Inactive Vitamin D3 5,000 unit tablet RxNorm: 122121 1 Tablet(s) PO QD 01/1908/18/2018 Inactive fenofibrate micronized 134 mg capsule RxNorm: 610013 1 Capsule(s) PO QD for triglycerides 01/19/2018 07/11/2018 Inactive metformin ER 500 mg tablet,extended release 24 hr RxNorm: 103515 1 Tablet(s) QD 12/31/2017 03/30/2018 Inactive metformin ER 500 mg tablet,extended release 24 hr RxNorm: 573604 Tablet(s) 12/30/2017 12/30/2017 Inactive propranolol ER 80 mg capsule,24 hr,extended release RxNorm: 166897 1 Capsule(s) PO QD 12/17/2017 06/14/2018 Inactive metformin ER 500 mg tablet,extended release 24 hr RxNorm: 86 0975 1 Tablet(s) PO QD DUE FOR LABS AND APPT 12/02/2017 12/30/2017 Inactive Crestor 10 mg tablet RxNorm: 197889 TAKE ONE TABLET BY MOUTH ON CE DAILY 11/01/2017 01/18/2018 Inactive lisinopril 40 mg tablet RxNorm: 266234 TAKE ONE TABLET BY MOUTH ONCE DAILY [...] ER 80 mg capsule,24 hr,extended release RxNorm: 376944 1 Capsule(s) PO QD DUE FOR APPT 09/08/2017 12/17/2017 Inactive Crestor 10 mg tablet RxNorm: 124537 1 Tablet(s) PO QD T CHELSI ONE TABLET BY MOUTH DAILY 03/11/2017 09/06/2017 Inactive propranolol ER 80 mg capsule,24 hr,extended release RxNorm: 421558 1 Capsule(s) PO QD TAKE ONE CAPSULE BY MOUTH DAILY - REPLACES AMLODOPINE 03/11/2017 09/08/2017 Inactive metformin ER 500 mg tablet,extended release 24 hr RxNorm: 86 0975 1 Tablet(s) PO QD 03/11/2017 09/08/2017 Inactive lisinopril 40 mg tablet RxNorm: 843576 1 Tablet(s) PO QD 03/11/2017 0 09/06/2017 Inactive lisinopril 40 mg tablet RxNorm: 711828 1 Tablet(s) PO QD 02/16/2017 1 05/11/2016 Inactive metformin ER 500 mg tablet,extended release 24 hr RxNorm: 86 0975 1 Tablet(s) PO QD Due for labs and follow up before further refills 02/16/2017 017 Inactive propranolol ER 80 mg capsule,24 hr,extended release RxNorm: 268015 Capsule(s) TAKE ONE CAPSULE BY MOUTH DAILY - REPLACES AMLODOPINE 11/19/20162016 Inactive lisinopril 40 mg tablet RxNorm: 156316 1 Tablet(s) PO QD 11/17/2016 1 04/18/2016 Inactive metformin ER 500 mg tablet,extended release 24 hr RxNorm: 86 0975 1 Tablet(s) PO QD 11/17/2016 02/16/2017 Inactive lisinopril 40 mg tablet RxNorm: 404388 1 Tablet(s) PO Q D TAKE ONE TABLET BY MOUTH DAILY 08/19/2016 11/17/2016 Inactive metformin ER 500 mg tablet,extended release 24 hr RxNorm: 86 0975 Tablet(s) TAKE ONE TABLET BY MOUTH DAILY 08/19/2016 11/16/2016 Inactive propranolol ER 80 mg capsule,24 hr,extended release RxNorm: 695835 Capsule(s) TAKE ONE CAPSULE BY MOUTH DAILY - REPLACES AMLODOPINE 08/19/20162016 Inactive Crestor 10 mg tablet RxNorm: 603301 TAKE ONE TABLET BY MOUTH DAILY 06/16/2016 03/10/2017 Inactive lisinopril 40 mg tablet RxNorm: 918700 1 Tablet(s) PO Q D TAKE ONE TABLET BY MOUTH DAILY 05/23/2016 08/18/2016 Inactive metformin ER 500 mg tablet,extended release 24 hr RxNorm: 86 0975 TAKE ONE TABLET BY MOUTH DAILY 05/23/2016 08/19/2016 Inactive propranolol ER 80 mg capsule,24 hr,extended release RxNorm: 760681 TAKE ONE CAPSULE BY MOUTH DAILY - REPLACES AMLODOPINE 05/23/2016 08/19/2016 [place] ctive Crestor 10 mg tablet RxNorm: 604833 TAKE ONE TABLET BY MOUTH DAILY 03/31/2016 06/15/2016 Inactive metformin ER 500 mg tablet,extended release 24 hr RxNorm: 86 0975 TAKE ONE TABLET BY MOUTH DAILY 02/19/2016 05/22/2016 Inactive propranolol ER 80 mg capsule,24 hr,extended release RxNorm: 780147 TAKE ONE CAPSULE BY MOUTH DAILY - REPLACES AMLODOPINE 11/23/2015 05/20/2016 [place] ctive metformin ER 500 mg tablet,extended release 24 hr RxNorm: 86 0975 TAKE ONE TABLET BY MOUTH DAILY 11/08/2015 02/05/2016 Inactive Bactroban Nasal 2 % ointment RxNorm: 780083 Apply topic ally to affected area twice daily 09/10/2015 03/09/2016 Inactive Vibramycin 100 mg capsule RxNorm: 345677 1 Capsule(s) PO BID 201509/23/2015 Inactive lisinopril 40 mg tablet RxNorm: 865181 1 Tablet(s) PO Q D TAKE ONE TABLET BY MOUTH DAILY 08/27/2015 02/22/2016 Inactive metformin ER 500 mg tablet,extended release 24 hr RxNorm: 86 0975 TAKE ONE TABLET BY MOUTH DAILY 08/06/2015 11/03/2015 Inactive Levsin/SL 0.125 mg sublingual tablet RxNorm: 4265460 1 T ablet(s) SL Q4H as needed for stomach cramps 06/29/2015 07/03/2015 Inactive lisinopril 40 mg tablet RxNorm: 855769 Tablet(s) TAKE ONE TABLE T BY MOUTH DAILY 06/07/2015 08/26/2015 Inactive propranolol ER 80 mg capsule,24 hr,extended release RxNorm: 115169 TAKE ONE CAPSULE BY MOUTH DAILY - REPLACES AMLODOPINE 05/30/2015 11/22/2015 [place] metformin ER 500 mg tablet,extended release 24 hr RxNorm: 86 0975 1 Tablet(s) PO QD 05/10/2015 08/05/2015 Inactive Crestor 10 mg tablet RxNorm: 839913 TAKE ONE TABLET BY MOUTH DAILY 04/18/2015 10/14/2015 Inactive metformin ER 500 mg tablet,extended release 24 hr RxNorm: 86 0975 TAKE ONE TABLET BY MOUTH DAILY 02/07/2015 05/10/2015 Inactive sildenafil 20 mg tablet RxNorm: 963788 1 Tablet(s) PO QD 01/17/2015 1 04/17/2014 Inactive propranolol ER 80 mg capsule,24 hr,extended release RxNorm: 940767 1 Capsule(s) PO QD replaces amlodopine 11/28/2014 05/26/2015 Inactive [SALINASIN GS FOR UNINSURED PATIENTS -- BIN:[id number], PCN: [id number], Group: [id number], ID# [id number], Process claim through [employer], for questions: . THIS IS NOT INSURANCE.] lisinopril 40 mg tablet RxNorm: 144494 TAKE ONE TABLET BY MOUTH DAILY 11/16/2014 06/07/2015 Inactive lisinopril 40 mg tablet RxNorm: 438336 1 Tablet(s) PO QD 08/21/2014 0 11/15/2014 Inactive [AttnRPh: Saving apply/adjudicate RxGRP: [id number] RxBIN:[id number] RxPCN: ID#:[id number]] lisinopril 40 mg tablet RxNorm: 786040 1 Tablet(s) PO Q D NEEDS SEEN FOR APPOINTMENT 07/14/2014 08/21/2014 Inactive [AttnRPh: Saving apply/adjudicate RxGRP:[id number] RxBIN:[id number] RxPCN: ID#:[id number]] Crestor 10 mg tablet RxNorm: 895562 TAKE ONE TABLET BY MOUTH 07/06/2014 01/01/2015 Inactive metformin ER 500 mg tablet,extended release 24 hr RxNorm: 86 0975 1 Tablet(s) QD TAKE ONE TABLET BY MOUTH ONCE A DAY 06/09/2014 12/05/2014 Inactive propranolol ER 80 mg capsule,24 hr,extended release RxNorm: 578902 1 Capsule(s) PO QD replaces amlodopine 06/05/2014 11/28/2014 Inactive [MediaWorksIN GS FOR UNINSURED PATIENTS -- BIN:[id number], PCN: [id number], Group: [id number], ID# [id number], Process claim through [employer], for questions: . THIS IS NOT INSURANCE.] propranolol ER 80 mg capsule,24 hr,extended release RxNorm: 330694 1 Capsule(s) PO QD replaces amlodopine 03/07/2014 06/05/2014 Inactive [SAVIN GS FOR UNINSURED PATIENTS -- BIN:504144, PCN: [id number], Group: [id number], ID# [id number], Process claim through [employer], for questions: . THIS IS NOT INSURANCE.] metformin ER 500 mg tablet,extended release 24 hr RxNorm: 86 0975 TAKE ONE TABLET BY MOUTH ONCE A DAY 12/15/2013 06/09/2014 Inactive propranolol ER 80 mg capsule,24 hr,extended release RxNorm: 271980 1 Capsule(s) PO QD replaces amlodopine 12/09/2013 03/07/2014 Inactive [NICOLAS FOR UNINSURED PATIENTS -- BIN:371048, PCN: [id number], Group: [id number], ID# [id number], Process claim through [employer], for questions: . THIS IS NOT INSURANCE.] acyclovir 800 mg tablet RxNorm: 190368 1 Tablet(s) PO QID 09/23/2013 09/29/2013 Inactive gabapentin 300 mg capsule RxNorm: 271073 1 Capsule(s) PO BID 201310/07/2013 Inactive metformin ER 500 mg tablet,extended release 24 hr RxNorm: 86 0975 1 Tablet(s) PO QD 09/19/2013 12/14/2013 Inactive propranolol ER 80 mg capsule,24 hr,extended release RxNorm: 487169 1 Capsule(s) PO QD replaces amlodopine 09/15/2013 12/09/2013 Inactive metformin ER 500 mg 24 hr tablet,extended release RxNorm: 86 0975 1 Tablet(s) PO QD 09/15/2013 09/18/2013 Inactive lisinopril 40 mg tablet RxNorm: 272159 1 Tablet(s) PO QD 07/19/2013 0 07/14/2014 Inactive Crestor 10 mg tablet RxNorm: 733582 Tablet(s) PO TAKE O NE TABLET BY MOUTH EVERY DAY 07/12/2013 07/05/2014 Inactive propranolol ER 80 mg capsule,24 hr,extended release RxNorm: 746296 1 Capsule(s) PO QD replaces amlodopine 06/20/2013 09/15/2013 Inactive triamcinolone acetonide 0.1 % topical ointment RxNorm: 67548 36 Application TOP BID 06/20/2013 06/26/2013 Inactive Crestor 10 mg tablet RxNorm: 914360 1 Tablet(s) PO QD 04/18/201310/2013 Inactive Viagra 100 mg tablet RxNorm: 163413 1 Tablet(s) PO as directed 01/0508/18/2018 Inactive TAKE ONE TABLET BY MOUTH DIRECTED Crestor 10 mg tablet RxNorm: 123571 1 Tablet(s) PO QD 01/17/201304/06 Inactive metformin ER 500 mg tablet,extended release 24 hr RxNorm: 86 0975 1 Tablet(s) PO QD TAKE ONE TABLET BY MOUTH EVERY DAY 12/23/2012 09/15/2013 Inactive triamcinolone acetonide 0.1 % topical ointment RxNorm: 40292 36 Application TOP BID 08/27/2012 09/02/2012 Inactive ketoconazole 2 % topical cream RxNorm: 640745 1 Application TOP QAM 08/27/2012 09/02/2012 Inactive lisinopril 40 mg tablet RxNorm: 448964 1 Tablet(s) PO QD 07/21/2012 0 07/15/2013 Inactive Crestor 10 mg tablet RxNorm: 685494 1 Tablet(s) PO QD 07/21/201210/04 Inactive amlodipine 10 mg tablet RxNorm: 153328 1 Tablet(s) PO QHS 07/21/2012 07/15/2013 Inactive metformin ER 500 mg tablet,extended release 24 hr RxNorm: 86 0977 Tablet(s) PO TAKE ONE TABLET BY MOUTH EVERY DAY 03/31/2012 12/22/2012 Inactive lisinopril 40 mg tablet RxNorm: 141788 1 Tablet(s) PO QD 07/29/2011 0 07/20/2012 Inactive amlodipine 10 mg tablet RxNorm: 900955 1 Tablet(s) PO QHS 07/29/2011 07/20/2012 Inactive amlodipine 10 mg Tab RxNorm: 248733 1 Tablet(s) PO QHS 07/29/2011 Inactive Viagra 100 mg tablet RxNorm: 776373 1 Tablet(s) PO as directed 07/0601/24/2013 Inactive TAKE ONE TABLET BY MOUTH DIRECTED Crestor 10 mg tablet RxNorm: 407947 1 Tablet(s) PO QD 07/29/201107/05 Inactive Norvasc 5 mg Tab RxNorm: 721769 1 Tablet(s) PO QD 07/16/2011 07/28/19 Inactive Norvasc 5 mg Tab RxNorm: 324279 1 Tablet(s) PO QD 06/26/2011 07/15/19 12 Inactive lisinopril 40 mg Tab RxNorm: 127067 1 Tablet(s) PO QD 05/13/201107/06 Inactive metformin ER 500 mg tablet,extended release 24 hr RxNorm: 86 0977 1 Tablet(s) PO QD 03/18/2011 07/28/2011 Inactive Crestor 10 mg Tab RxNorm: 489515 1 Tablet(s) PO QHS 01/27/20112011 Inactive metformin ER 500 mg 24 hr Tab RxNorm: 368196 1 Tablet(s) PO QD 11/0403/17/2011 Inactive Viagra 100 mg Tab RxNorm: 699870 Tablet(s) PO TAKE ON E TABLET BY MOUTH DIRECTED 08/26/2010 07/28/2011 Inactive metformin ER 500 mg 24 hr Tab RxNorm: 964357 1 Tablet(s) PO QD 07/0611/18/2010 Inactive Crestor 10 mg Tab RxNorm: 183863 1 Tablet(s) PO QHS 07/30/20102010 Inactive Crestor 10 mg Tab RxNorm: 226873 1 Tablet(s) PO QHS 05/20/20102010 Inactive Wellbutrin SR 150 mg Tab RxNorm: 459418 1 Tablet(s) PO QAM 04/24/19 11 07/22/2010 Inactive Multivitamin And Mineral tablet RxNorm: 1 Tablet(s) PO QD No Start Date Active FreeStyle Lite Strips RxNorm: 1 Unit Dose Miscel laneous AC & HS check blood sugar AC and HS No Start Date Active Co Q-10 200 mg capsule RxNorm: 402409 1 Capsule(s) PO QD No Start Date Active lancets RxNorm: 1 Milliliter(s) Miscellaneous AC & HS No Start Robert e Active Vitamin D3 4,000 unit capsule RxNorm: 2769906 1 Capsule(s) PO QD No Start Date 07/08/2016 Inactive Fish Oil 360 mg-1,200 mg capsule RxNorm: 657910 2 Capsule(s) PO QD No Start Date 01/30/2019 Inactive hydrocodone 5 mg-acetaminophen 325 mg tablet RxNorm: 492132 1 Tablet(s) PO Q4H as needed for severe pain No Start Date 12/30/2015 Inactive Xanax 0.25 mg tablet RxNorm: 983844 1/2 Tablet(s) PO PRN for se andrea stress No Start Date 07/08/2016 Inactive lisinopril 40 mg Tab RxNorm: 963744 1 Tablet(s) PO QD No Start Date 0 05/12/2011 Inactive Fish Oil 1,000 mg capsule RxNorm: 1 Capsule(s) PO QD No Start Date 09/18/2014 Inactive naproxen 500 mg Tab RxNorm: 707626 1 Tablet(s) PO BID No Start Date 0 07/28/2011 Inactive aspirin 81 mg tablet RxNorm: 290446 1 Tablet(s) PO QD No Start Date 0 05/09/2018 Inactive Crestor 10 mg Tab RxNorm: 680353 1 Tablet(s) PO QD No Start Date 07/06 Inactive Crestor 5 mg tablet RxNorm: 103712 1 Tablet(s) PO QD No Start Date Inactive Fish Oil Oral RxNorm: Oral No Start Date 09/18/2014 Inactive Viagra 100 mg Tab RxNorm: 509882 1 Tablet(s) PO as directed No Star [...] Item Code Result Date S vice Location COMPREHENSIVE METABOLIC 29100 AST 21 U/L 2019 Unknown COMPREHENSIVE METABOLIC 75762 ALT 26 U/L 2019 Unknown COMPREHENSIVE METABOLIC 70531 BUN 14 mg/dL 2019 Unknown COMPREHENSIVE METABOLIC 02681 ALBUMIN 4.4 g/dL 2019 Unknown COMPREHENSIVE METABOLIC 93099 CHLORIDE 102 mmol/L 05/24 Unknown COMPREHENSIVE METABOLIC 09669 Bili Total 0.4 mg/dL 05/24 Unknown COMPREHENSIVE METABOLIC 08355 ALK PHOS 55 U/L 2019 Unknown COMPREHENSIVE METABOLIC 56111 SODIUM 139 mmol/L 05/24 Unknown COMPREHENSIVE METABOLIC 01778 CREATININE 1.28 mg/dL 05/07 Unknown COMPREHENSIVE METABOLIC 62748 CALCIUM 9.7 mg/dL 2019 Unknown COMPREHENSIVE METABOLIC 78882 POTASSIUM 4.7 mmol/L 05/24 Unknown COMPREHENSIVE METABOLIC 98487 Total Protein 6.8 g/dL Unknown COMPREHENSIVE METABOLIC 16076 Glucose 130 mg/dL 2019 Unknown COMPREHENSIVE METABOLIC 81374 Bicarbonate 29 mmol/L 05/07 Unknown COMPREHENSIVE METABOLIC 44180 AGAP 8 mmol/L 2019 Unknown GFR CALC 3271559 GFR Non Afr Amr 56 mL/min 05/24/2019 Unk nown GFR CALC 3145215 GFR Afr Amr >60 mL/min 05/24/2019 Unknow n MEAN GLUC 2168015 Calc Mean Gluc 140 mg/dL 01/26/2019 Unkn own GLYCOSYLATED HEMOGLOBIN TEST 70385 Hgb A1c 18073-5 6.5 % 1 Unknown COMPREHENSIVE METABOLIC 04927 AST 17 U/L 2018 Unknown COMPREHENSIVE METABOLIC 62818 ALT 19 U/L 2018 Unknown COMPREHENSIVE METABOLIC 09422 BUN 19 mg/dL 2018 Unknown COMPREHENSIVE METABOLIC 52577 ALBUMIN 4.3 g/dL 2018 Unknown COMPREHENSIVE METABOLIC 26122 CHLORIDE 103 mmol/L 01/26 Unknown COMPREHENSIVE METABOLIC 04136 Bili Total 0.6 mg/dL 01/26 Unknown COMPREHENSIVE METABOLIC 54059 ALK PHOS 60 U/L 2018 Unknown COMPREHENSIVE METABOLIC 51079 SODIUM 140 mmol/L 01/26 Unknown COMPREHENSIVE METABOLIC 20753 CREATININE 1.21 mg/dL 01/05 Unknown COMPREHENSIVE METABOLIC 36071 CALCIUM 9.6 mg/dL 2018 Unknown COMPREHENSIVE METABOLIC 56998 POTASSIUM 4.5 mmol/L 01/26 Unknown COMPREHENSIVE METABOLIC 23390 Total Protein 6.7 g/dL Unknown COMPREHENSIVE METABOLIC 96392 Glucose 111 mg/dL 2018 Unknown COMPREHENSIVE METABOLIC 46323 Bicarbonate 28 mmol/L 01/05 Unknown COMPREHENSIVE METABOLIC 28707 AGAP 9 mmol/L 2018 Unknown COMPLETE BLOOD COUNT 1546657 WBC 10.7 10e9/L 019 Unknown COMPLETE BLOOD COUNT [id number] RBC 4.38 10e12/L 2018 Unknown COMPLETE BLOOD COUNT [id number] HEMOGLOBIN 13.7 g/dL 01/27/20 19 Unknown COMPLETE BLOOD COUNT [id number] HEMATOCRIT 42.0 % 01/27/20 19 Unknown COMPLETE BLOOD COUNT 1894010 MCV 95.9 fL 9 Unknown COMPLETE BLOOD COUNT 8736309 MCH 31.3 pg 9 Unknown COMPLETE BLOOD COUNT 7431169 MCHC 32.6 g/dL 9 Unknown COMPLETE BLOOD COUNT 0948187 PLATELET COUNT 232 10e9/L Unknown COMPLETE BLOOD COUNT 1907035 Mean Plt Volume 11.4 fL Unknown COMPLETE BLOOD COUNT 4552888 Neut Auto 68.7 % 9 Unknown COMPLETE BLOOD COUNT [id number] Lymph Auto 21.2 % 01/27/20 19 Unknown COMPLETE BLOOD COUNT 6559615 [place] Auto 8.1 % 9 Unknown COMPLETE BLOOD COUNT 1118428 RDW 14.1 % 9 Unknown COMPLETE BLOOD COUNT 4759295 Eos Auto 1.8 % 9 Unknown COMPLETE BLOOD COUNT 4183934 Baso Auto 0.2 % 9 Unknown COMPLETE BLOOD COUNT 8068887 Neutrophil Abs 7.35 10e9/L Unknown COMPLETE BLOOD COUNT 2187007 Lymphocyte Abs 2.27 10e9/L Unknown COMPLETE BLOOD COUNT 9344101 Monocyte Abs 0.87 10e9/L 01/05 Unknown COMPLETE BLOOD COUNT 2146454 Eosinophil Abs 0.19 10e9/L Unknown COMPLETE BLOOD COUNT 6298404 RDW-SD 47.7 fL 9 Unknown COMPLETE BLOOD COUNT [id number] Basophil Abs 0.02 10e9/L 01/05 Unknown GFR CALC 7871479 GFR Non Afr Amr 59 mL/min 01/26/2019 Unk nown GFR CALC 7025568 GFR Afr Amr >60 mL/min 01/26/2019 Unknow n LIPID GROUP 29677 Cholesterol 215 mg/dL 01/26/2019 Unkno wn LIPID GROUP 42614 Triglyceride 221 mg/dL 01/26/2019 Unkn own LIPID GROUP 43195 HDL CHOLESTEROL 41 mg/dL 01/26/2019 U nknown LIPID GROUP 01893 Chol/HDL Ratio 5.24 ratio 01/26/2019 U nknown LIPID GROUP 75491 NON-HDL Chol 174 mg/dL 01/26/2019 Unkn own LIPID GROUP 95379 LDL Cholesterol 130 mg/dL 01/26/2019 [place] [address] Glucose 104 mg/dL 09/30 [place] [address] CREATININE 1.18 mg/dL [place] [address] BUN 19 mg/dL 09/30 [place] [address] SODIUM 139 mmol/L 09/05 [place] [address] POTASSIUM 4.1 mmol/L 09/05 [place] [address] CHLORIDE 105 mmol/L 09/05 [place] [address] Bicarbonate 26 mmol/L [place] [address] AGAP 8 mmol/L 09/30 [place] [address] CALCIUM 9.3 mg/dL 09/30 Unknown GFR CALC 0017316 GFR Non Afr Amr >60 mL/min 09/30/2018 Un known GFR CALC 4354389 GFR Afr Amr >60 mL/min 09/30/2018 Unknow n MICROALBUMIN URINE RANDOM 22384 U Microalbumin <2.0 mg/L 08/19/2018 Unknown MICROALBUMIN URINE RANDOM 59006 U Creatinine 66 mg/dL 0 08/19/2018 Unknown MICROALBUMIN URINE RANDOM 56532 ALB/CR Ratio <3.0 mg/gCR 08/19/2018 Unknown COMPREHENSIVE METABOLIC 83424 AST 21 U/L 2018 Unknown COMPREHENSIVE METABOLIC 15243 ALT 20 U/L 2018 Unknown COMPREHENSIVE METABOLIC 01432 BUN 31 mg/dL 2018 Unknown COMPREHENSIVE METABOLIC 42868 ALBUMIN 4.4 g/dL 2018 Unknown COMPREHENSIVE METABOLIC 43059 CHLORIDE 105 mmol/L 08/16 Unknown COMPREHENSIVE METABOLIC 11331 Bili Total 0.5 mg/dL 08/16 Unknown COMPREHENSIVE METABOLIC 61832 ALK PHOS 40 U/L 2018 Unknown COMPREHENSIVE METABOLIC 32975 SODIUM 140 mmol/L 08/16 Unknown COMPREHENSIVE METABOLIC 94268 CREATININE 1.45 mg/dL 08/04 Unknown COMPREHENSIVE METABOLIC 02126 CALCIUM 9.8 mg/dL 2018 Unknown COMPREHENSIVE METABOLIC 08527 POTASSIUM 5.1 mmol/L 08/16 Unknown COMPREHENSIVE METABOLIC 06635 Total Protein 6.9 g/dL Unknown COMPREHENSIVE METABOLIC 06273 Glucose 110 mg/dL 2018 Unknown COMPREHENSIVE METABOLIC 38544 Bicarbonate 25 mmol/L 08/04 Unknown COMPREHENSIVE METABOLIC 17356 AGAP 10 mmol/L 2018 Unknown GFR CALC 0893651 GFR Non Afr Amr 48 mL/min 08/16/2018 Unk nown GFR CALC 9339121 GFR Afr Amr 58 mL/min 08/16/2018 Unknown GLYCOSYLATED HEMOGLOBIN TEST 01831 Hgb A1c 59131-4 5.9 % 0 08/16/2018 Unknown LIPID GROUP 67796 Cholesterol 226 mg/dL 08/16/2018 Unkno wn LIPID GROUP 25804 Triglyceride 335 mg/dL 08/16/2018 Unkn own LIPID GROUP 65759 HDL CHOLESTEROL 32 mg/dL 08/16/2018 U nknown LIPID GROUP 80667 Chol/HDL Ratio 7.06 ratio 08/16/2018 U nknown LIPID GROUP 03964 NON-HDL Chol 194 mg/dL 08/16/2018 Unkn own LIPID GROUP 48396 LDL Cholesterol 127 mg/dL 08/16/2018 U nknown THYROID STIMULATING HORMONE 72714 TSH 2.475 uIU/mL 08/16/2018 Unknown COMPLETE BLOOD COUNT 9753896 WBC 7.5 10e9/L 08/17/19 19 Unknown COMPLETE BLOOD COUNT 5175235 RBC 4.09 10e12/L 2018 Unknown COMPLETE BLOOD COUNT 2764395 HEMOGLOBIN 12.9 g/dL 08/17/19 19 Unknown COMPLETE BLOOD COUNT 5233645 HEMATOCRIT 40.0 % 08/17/19 19 Unknown COMPLETE BLOOD COUNT 8297708 MCV 97.8 fL 9 Unknown COMPLETE BLOOD COUNT 2039226 MCH 31.5 pg 9 Unknown COMPLETE BLOOD COUNT 2108717 MCHC 32.3 g/dL 9 Unknown COMPLETE BLOOD COUNT 1564138 PLATELET COUNT 258 10e9/L Unknown COMPLETE BLOOD COUNT 0791546 Mean Plt Volume 11.4 fL Unknown COMPLETE BLOOD COUNT 8820786 Neut Auto 62.9 % 9 Unknown COMPLETE BLOOD COUNT 5099372 Lymph Auto 27.3 % 08/17/19 19 Unknown COMPLETE BLOOD COUNT 9626621 [place] Auto 8.2 % 05/13/201 9 Unknown COMPLETE BLOOD COUNT 7802544 RDW 13.3 % 9 Unknown COMPLETE BLOOD COUNT 3574697 Eos Auto 1.5 % 9 Unknown COMPLETE BLOOD COUNT 8098261 Baso Auto 0.1 % 9 Unknown COMPLETE BLOOD COUNT 9668676 Neutrophil Abs 4.72 10e9/L Unknown COMPLETE BLOOD COUNT 6247050 Lymphocyte Abs 2.05 10e9/L Unknown COMPLETE BLOOD COUNT 8757331 Monocyte Abs 0.62 10e9/L 08/04 Unknown COMPLETE BLOOD COUNT 2274721 Eosinophil Abs 0.11 10e9/L Unknown COMPLETE BLOOD COUNT 1705844 RDW-SD 46.7 fL 9 Unknown COMPLETE BLOOD COUNT 1401976 Basophil Abs 0.01 10e9/L 08/04 Unknown MEAN GLUC 3733842 Calc Mean Gluc 123 mg/dL 08/16/2018 Unkn own LIPID GROUP 64507 Cholesterol 212 mg/dL 05/05/2018 Unkno wn LIPID GROUP 17825 Triglyceride 271 mg/dL 05/05/2018 Unkn own LIPID GROUP 95206 HDL CHOLESTEROL 38 mg/dL 05/05/2018 U nknown LIPID GROUP 93289 Chol/HDL Ratio 5.58 ratio 05/05/2018 U nknown LIPID GROUP 51975 NON-HDL Chol 174 mg/dL 05/05/2018 Unkn own LIPID GROUP 22881 LDL Cholesterol 120 mg/dL 05/05/2018 U nknown GFR CALC 9772186 GFR Non Afr Amr 49 mL/min 05/05/2018 Unk nown GFR CALC 4653321 GFR Afr Amr 59 mL/min 05/05/2018 Unknown GLYCOSYLATED HEMOGLOBIN TEST 47350 Hgb A1c 95938-8 6.0 % 0 05/05/2018 Unknown MEAN GLUC [id number] Calc Mean Gluc 126 mg/dL 05/05/2018 Unkn own COMPREHENSIVE METABOLIC 39535 AST 18 U/L 2018 Unknown COMPREHENSIVE METABOLIC 58285 ALT 23 U/L 2018 Unknown COMPREHENSIVE METABOLIC 13179 BUN 30 mg/dL 2018 Unknown COMPREHENSIVE METABOLIC 59703 ALBUMIN 4.3 g/dL 2018 Unknown COMPREHENSIVE METABOLIC 71346 CHLORIDE 106 mmol/L 05/05 Unknown COMPREHENSIVE METABOLIC 31239 Bili Total 0.4 mg/dL 05/05 Unknown COMPREHENSIVE METABOLIC 47030 ALK PHOS 39 U/L 2018 Unknown COMPREHENSIVE METABOLIC 28447 SODIUM 139 mmol/L 05/05 Unknown COMPREHENSIVE METABOLIC 50563 CREATININE 1.44 mg/dL 04/08 Unknown COMPREHENSIVE METABOLIC 96708 CALCIUM 9.6 mg/dL 2018 Unknown COMPREHENSIVE METABOLIC 81253 POTASSIUM 4.7 mmol/L 05/05 Unknown COMPREHENSIVE METABOLIC 85596 Total Protein 6.6 g/dL Unknown COMPREHENSIVE METABOLIC 69790 Glucose 112 mg/dL 2018 Unknown COMPREHENSIVE METABOLIC 23127 Bicarbonate 28 mmol/L 04/08 Unknown COMPREHENSIVE METABOLIC 13845 AGAP 5 mmol/L 2018 Unknown THYROID STIMULATING HORMONE 26974 TSH 3.725 uIU/mL 05/05/2018 Unknown COMPLETE BLOOD COUNT [id number] WBC 8.2 10e9/L 05/05/19 19 Unknown COMPLETE BLOOD COUNT [id number] RBC 4.02 10e12/L 2018 Unknown COMPLETE BLOOD COUNT [id number] HEMOGLOBIN 12.7 g/dL 05/05/19 19 Unknown COMPLETE BLOOD COUNT [id number] HEMATOCRIT 39.3 % 05/05/19 19 Unknown COMPLETE BLOOD COUNT [id number] MCV 97.8 fL 9 Unknown COMPLETE BLOOD COUNT [id number] MCH 31.6 pg 9 Unknown COMPLETE BLOOD COUNT 1878310 MCHC 32.3 g/dL 9 Unknown COMPLETE BLOOD COUNT [id number] PLATELET COUNT 213 10e9/L Unknown COMPLETE BLOOD COUNT [id number] Mean Plt Volume 11.7 fL Unknown COMPLETE BLOOD COUNT [id number] Neut Auto 55.7 % 9 Unknown COMPLETE BLOOD COUNT [id number] Lymph Auto 33.2 % 05/05/19 19 Unknown COMPLETE BLOOD COUNT [id number] [place] Auto 8.5 % 9 Unknown COMPLETE BLOOD COUNT [id number] RDW 13.9 % 9 Unknown COMPLETE BLOOD COUNT 7598226 Eos Auto 2.4 % 9 Unknown COMPLETE BLOOD COUNT 6046310 Baso Auto 0.2 % 9 Unknown COMPLETE BLOOD COUNT [id number] Neutrophil Abs 4.57 10e9/L Unknown COMPLETE BLOOD COUNT [id number] Lymphocyte Abs 2.72 10e9/L Unknown COMPLETE BLOOD COUNT [id number] Monocyte Abs 0.70 10e9/L 04/08 Unknown COMPLETE BLOOD COUNT [id number] Eosinophil Abs 0.20 10e9/L Unknown COMPLETE BLOOD COUNT [id number] RDW-SD 48.8 fL 9 Unknown COMPLETE BLOOD COUNT [id number] Basophil Abs 0.02 10e9/L 04/08 Unknown MICROALBUMIN URINE RANDOM 32215 U Microalbumin 19.3 mg/L 01/19/2018 Unknown MICROALBUMIN URINE RANDOM 59128 U Creatinine 96 mg/dL 1 Unknown MICROALBUMIN URINE RANDOM 66341 ALB/CR Ratio 20.1 mg/gCR 01/19/2018 Unknown LIPID GROUP 77972 Cholesterol 173 mg/dL 01/13/2018 Unkno wn LIPID GROUP 03284 Triglyceride 386 mg/dL 01/13/2018 Unkn own LIPID GROUP 49613 HDL CHOLESTEROL 37 mg/dL 01/13/2018 U nknown LIPID GROUP 81209 Chol/HDL Ratio 4.68 ratio 01/13/2018 U nknown LIPID GROUP 39846 NON-HDL Chol 136 mg/dL 01/13/2018 Unkn own LIPID GROUP 75349 LDL Cholesterol 59 mg/dL 01/13/2018 U nknown COMPLETE BLOOD COUNT [id number] WBC TNP:Client Request 01/13/2018 Unknown COMPLETE BLOOD COUNT [id number] RBC TNP:Client Request 01/13/2018 Unknown COMPLETE BLOOD COUNT [id number] HEMOGLOBIN TNP:Client Request 01/13/2018 Unknown COMPLETE BLOOD COUNT [id number] HEMATOCRIT TNP:Client Request 01/13/2018 Unknown COMPLETE BLOOD COUNT [id number] MCV TNP:Client Request 01/13/2018 Unknown COMPLETE BLOOD COUNT 6783182 MCH TNP:Client Request 01/13/2018 Unknown COMPLETE BLOOD COUNT [id number] MCHC TNP:Client Request 01/13/2018 Unknown COMPLETE BLOOD COUNT [id number] PLATELET COUNT TNP:Client Req uest 01/13/2018 Unknown COMPLETE BLOOD COUNT [id number] Mean Plt Volume TNP:Client Re quest 01/13/2018 Unknown COMPLETE BLOOD COUNT [id number] Neut Auto TNP:Client Request 01/13/2018 Unknown COMPLETE BLOOD COUNT [id number] Lymph Auto TNP:Client Request 01/13/2018 Unknown COMPLETE BLOOD COUNT [id number] [place] Auto TNP:Client Request 01/13/2018 Unknown COMPLETE BLOOD COUNT [id number] RDW TNP:Client Request 01/13/2018 Unknown COMPLETE BLOOD COUNT [id number] Eos Auto TNP:Client Request 01/13/2018 Unknown COMPLETE BLOOD COUNT [id number] Baso Auto TNP:Client Request 01/13/2018 Unknown COMPLETE BLOOD COUNT [id number] Neutrophil Abs TNP:Client Req uest 01/13/2018 Unknown COMPLETE BLOOD COUNT [id number] Lymphocyte Abs TNP:Client Req uest 01/13/2018 Unknown COMPLETE BLOOD COUNT [id number] Monocyte Abs TNP:Client Reque st 01/13/2018 Unknown COMPLETE BLOOD COUNT [id number] Eosinophil Abs TNP:Client Req uest 01/13/2018 Unknown COMPLETE BLOOD COUNT [id number] RDW-SD TNP:Client Request 01/13/2018 Unknown COMPLETE BLOOD COUNT [id number] Basophil Abs TNP:Client Reque st 01/13/2018 Unknown GLYCOSYLATED HEMOGLOBIN TEST 70733 Hgb A1c 65265-6 6.2 % 1 Unknown THYROID STIMULATING HORMONE 74326 TSH 2.764 uIU/mL 01/13/2018 Unknown COMPREHENSIVE METABOLIC 82079 AST 19 U/L 2017 Unknown COMPREHENSIVE METABOLIC 26015 ALT 21 U/L 2017 Unknown COMPREHENSIVE METABOLIC 53136 BUN 16 mg/dL 2017 Unknown COMPREHENSIVE METABOLIC 09195 ALBUMIN 4.2 g/dL 2017 Unknown COMPREHENSIVE METABOLIC 78621 CHLORIDE 105 mmol/L 01/13 Unknown COMPREHENSIVE METABOLIC 74713 Bili Total 0.5 mg/dL 01/13 Unknown COMPREHENSIVE METABOLIC 20632 ALK PHOS 85 U/L 2017 Unknown COMPREHENSIVE METABOLIC 63272 SODIUM 139 mmol/L 01/13 Unknown COMPREHENSIVE METABOLIC 88376 CREATININE 1.07 mg/dL 01/04 Unknown COMPREHENSIVE METABOLIC 23122 CALCIUM 9.2 mg/dL 2017 Unknown COMPREHENSIVE METABOLIC 92742 POTASSIUM 4.4 mmol/L 01/13 Unknown COMPREHENSIVE METABOLIC 56733 Total Protein 7.7 g/dL Unknown COMPREHENSIVE METABOLIC 97407 Glucose 130 mg/dL 2017 Unknown COMPREHENSIVE METABOLIC 54544 Bicarbonate 27 mmol/L 01/04 Unknown COMPREHENSIVE METABOLIC 43570 AGAP 7 mmol/L 2017 Unknown PSA EQUIMOLAR JERSON 03727 PSA Total 1.16 ng/mL 8 Unknown MEAN GLUC 7322858 Calc Mean Gluc 131 mg/dL 01/13/2018 Unkn own GFR CALC 0892869 GFR Non Afr Amr >60 mL/min 01/13/2018 Un known GFR CALC 6938321 GFR Afr Amr >60 mL/min 01/13/2018 Unknow n MEAN GLUC 9120131 Calc Mean Gluc 134 mg/dL 10/06/2017 Unkn own GFR CALC 2346198 GFR Non Afr Amr >60 mL/min 10/06/2017 Un known GFR CALC 4431659 GFR Afr Amr >60 mL/min 10/06/2017 Unknow n GLYCOSYLATED HEMOGLOBIN TEST 20518 Hgb A1c 85340-3 6.3 % 0 10/06/2017 Unknown VITAMIN B 12 43760 VITAMIN B12 1202 pg/mL 10/06/2017 Unk nown COMPLETE BLOOD COUNT [id number] WBC 7.4 10e9/L 10/07/19 18 Unknown COMPLETE BLOOD COUNT [id number] RBC 4.24 10e12/L 2017 Unknown COMPLETE BLOOD COUNT 8536160 HEMOGLOBIN 13.5 g/dL 10/07/19 18 Unknown COMPLETE BLOOD COUNT [id number] HEMATOCRIT 41.6 % 10/07/19 18 Unknown COMPLETE BLOOD COUNT [id number] MCV 98.1 fL 8 Unknown COMPLETE BLOOD COUNT 8089763 MCH 31.8 pg 8 Unknown COMPLETE BLOOD COUNT 9012179 MCHC 32.5 g/dL 8 Unknown COMPLETE BLOOD COUNT [id number] PLATELET COUNT 223 10e9/L 06/2017 Unknown COMPLETE BLOOD COUNT 4049045 Mean Plt Volume 11.9 fL 06/2017 Unknown COMPLETE BLOOD COUNT 4505830 Neut Auto 58.0 % 8 Unknown COMPLETE BLOOD COUNT 2455990 Lymph Auto 29.7 % 10/07/19 18 Unknown COMPLETE BLOOD COUNT 7793522 [place] Auto 8.3 % 8 Unknown COMPLETE BLOOD COUNT 4800522 RDW 14.0 % 8 Unknown COMPLETE BLOOD COUNT 2793560 Eos Auto 3.7 % 8 Unknown COMPLETE BLOOD COUNT 1683529 Baso Auto 0.3 % 8 Unknown COMPLETE BLOOD COUNT 7159711 Neutrophil Abs 4.29 10e9/L Unknown COMPLETE BLOOD COUNT 8249630 Lymphocyte Abs 2.20 10e9/L Unknown COMPLETE BLOOD COUNT 5207518 Monocyte Abs 0.61 10e9/L 06/2017 Unknown COMPLETE BLOOD COUNT 0805274 Eosinophil Abs 0.27 10e9/L Unknown COMPLETE BLOOD COUNT 9712155 RDW-SD 48.6 fL 8 Unknown COMPLETE BLOOD COUNT [id number] Basophil Abs 0.02 10e9/L 06/2017 Unknown LIPID GROUP 16131 Cholesterol 216 mg/dL 10/06/2017 Unkno wn LIPID GROUP 70561 Triglyceride 335 mg/dL 10/06/2017 Unkn own LIPID GROUP 25380 HDL CHOLESTEROL 33 mg/dL 10/06/2017 U nknown LIPID GROUP 64547 Chol/HDL Ratio 6.55 ratio 10/06/2017 U nknown LIPID GROUP 89650 NON-HDL Chol 183 mg/dL 10/06/2017 Unkn own LIPID GROUP 63358 LDL Cholesterol 116 mg/dL 10/06/2017 U nknown COMPREHENSIVE METABOLIC 70740 AST 15 U/L 2017 Unknown COMPREHENSIVE METABOLIC 48291 ALT 15 U/L 2017 Unknown COMPREHENSIVE METABOLIC 22828 BUN 21 mg/dL 2017 Unknown COMPREHENSIVE METABOLIC 59271 ALBUMIN 4.1 g/dL 2017 Unknown COMPREHENSIVE METABOLIC 05452 CHLORIDE 107 mmol/L 10/06 Unknown COMPREHENSIVE METABOLIC 41254 Bili Total 0.6 mg/dL 10/06 Unknown COMPREHENSIVE METABOLIC 52561 ALK PHOS 68 U/L 2017 Unknown COMPREHENSIVE METABOLIC 66083 SODIUM 140 mmol/L 10/06 Unknown COMPREHENSIVE METABOLIC 59304 CREATININE 1.12 mg/dL 06/2017 Unknown COMPREHENSIVE METABOLIC 34133 CALCIUM 9.7 mg/dL 2017 Unknown COMPREHENSIVE METABOLIC 93812 POTASSIUM 4.6 mmol/L 10/06 Unknown COMPREHENSIVE METABOLIC 03611 Total Protein 6.6 g/dL Unknown COMPREHENSIVE METABOLIC 52411 Glucose 114 mg/dL 2017 Unknown COMPREHENSIVE METABOLIC 36746 Bicarbonate 26 mmol/L 06/2017 Unknown COMPREHENSIVE METABOLIC 27642 AGAP 7 mmol/L 2017 Unknown GLYCOSYLATED HEMOGLOBIN TEST 37497 Hgb A1c 39668-1 6.1 % 1 05/05/2016 Unknown GFR CALC 0062229 GFR Non Afr Amr >60 mL/min 03/05/2017 Un known GFR CALC 5204465 GFR Afr Amr >60 mL/min 03/05/2017 Unknow n MEAN GLUC 4265546 Calc Mean Gluc 128 mg/dL 03/05/2017 Unkn own COMPREHENSIVE METABOLIC 01030 AST 18 U/L 2016 Unknown COMPREHENSIVE METABOLIC 82589 ALT 20 U/L 2016 Unknown COMPREHENSIVE METABOLIC 51906 BUN 15 mg/dL 2016 Unknown COMPREHENSIVE METABOLIC 89086 ALBUMIN 4.3 g/dL 2016 Unknown COMPREHENSIVE METABOLIC 01395 CHLORIDE 105 mmol/L 03/05 Unknown COMPREHENSIVE METABOLIC 35913 Bili Total 0.5 mg/dL 03/05 Unknown COMPREHENSIVE METABOLIC 60330 ALK PHOS 57 U/L 2016 Unknown COMPREHENSIVE METABOLIC 21626 SODIUM 141 mmol/L 03/05 Unknown COMPREHENSIVE METABOLIC 29707 CREATININE 1.07 mg/dL 02/06 Unknown COMPREHENSIVE METABOLIC 80286 CALCIUM 9.3 mg/dL 2016 Unknown COMPREHENSIVE METABOLIC 15874 POTASSIUM 4.8 mmol/L 03/05 Unknown COMPREHENSIVE METABOLIC 96941 Total Protein 6.2 g/dL Unknown COMPREHENSIVE METABOLIC 26583 Glucose 118 mg/dL 2016 Unknown COMPREHENSIVE METABOLIC 07428 Bicarbonate 29 mmol/L 02/06 Unknown COMPREHENSIVE METABOLIC 63148 AGAP 7 mmol/L 2016 Unknown FREE T4 34884 T4 Free 1.38 ng/dL 03/05/2017 Unknown COMPLETE BLOOD COUNT 6437687 WBC 8.4 10e9/L 03/05/20 17 Unknown COMPLETE BLOOD COUNT 1659540 RBC 4.11 10e12/L 2016 Unknown COMPLETE BLOOD COUNT 3204292 HEMOGLOBIN 12.8 g/dL 03/05/20 17 Unknown COMPLETE BLOOD COUNT 1455167 HEMATOCRIT 40.1 % 03/05/20 17 Unknown COMPLETE BLOOD COUNT 9699146 MCV 97.6 fL 7 Unknown COMPLETE BLOOD COUNT 6162661 MCH 31.1 pg 7 Unknown COMPLETE BLOOD COUNT 0440954 MCHC 31.9 g/dL 7 Unknown COMPLETE BLOOD COUNT 2297690 PLATELET COUNT 184 10e9/L Unknown COMPLETE BLOOD COUNT 7959377 Mean Plt Volume 11.3 fL Unknown COMPLETE BLOOD COUNT 1976489 Neut Auto 62.5 % 7 Unknown COMPLETE BLOOD COUNT 7134520 Lymph Auto 26.4 % 03/05/20 17 Unknown COMPLETE BLOOD COUNT 6107891 [place] Auto 7.9 % 7 Unknown COMPLETE BLOOD COUNT 6113111 RDW 13.5 % 7 Unknown COMPLETE BLOOD COUNT 0444899 Eos Auto 3.0 % 7 Unknown COMPLETE BLOOD COUNT 3359854 Baso Auto 0.2 % 7 Unknown COMPLETE BLOOD COUNT 9870842 Neutrophil Abs 5.25 10e9/L Unknown COMPLETE BLOOD COUNT 3428436 Lymphocyte Abs 2.22 10e9/L Unknown COMPLETE BLOOD COUNT [id number] Monocyte Abs 0.66 10e9/L 02/06 Unknown COMPLETE BLOOD COUNT 0782890 Eosinophil Abs 0.25 10e9/L Unknown COMPLETE BLOOD COUNT [id number] RDW-SD 46.7 fL 7 Unknown COMPLETE BLOOD COUNT 1910807 Basophil Abs 0.02 10e9/L 02/06 Unknown THYROID STIMULATING HORMONE 95430 TSH 2.330 uIU/mL 03/05/2017 Unknown LIPID GROUP 66384 Cholesterol 135 mg/dL 03/05/2017 Unkno wn LIPID GROUP 09535 Triglyceride 297 mg/dL 03/05/2017 Unkn own LIPID GROUP 18620 HDL CHOLESTEROL 34 mg/dL 03/05/2017 U nknown LIPID GROUP 02281 Chol/HDL Ratio 3.97 ratio 03/05/2017 U nknown LIPID GROUP 31133 NON-HDL Chol 101 mg/dL 03/05/2017 Unkn own LIPID GROUP 64243 LDL Cholesterol 42 mg/dL 03/05/2017 U nknown GLYCOSYLATED HEMOGLOBIN TEST 65380 Hgb A1c 65332-8 6.5 % 1 05/07/2015 Unknown GFR CALC 9605499 GFR Non Afr Amr 55 mL/min 03/06/2016 Unk nown GFR CALC 8411600 GFR Afr Amr >60 mL/min 03/06/2016 Unknow n COMPLETE BLOOD COUNT 3614485 WBC 8.5 10e9/L 03/06/20 16 Unknown COMPLETE BLOOD COUNT 5337870 RBC 4.32 10e12/L 2015 Unknown COMPLETE BLOOD COUNT 7117006 HEMOGLOBIN 13.5 g/dL 03/06/20 16 Unknown COMPLETE BLOOD COUNT 7475578 HEMATOCRIT 41.3 % 03/06/20 16 Unknown COMPLETE BLOOD COUNT 6525927 MCV 95.6 fL 6 Unknown COMPLETE BLOOD COUNT 0566421 MCH 31.3 pg 6 Unknown COMPLETE BLOOD COUNT 0893555 MCHC 32.7 g/dL 6 Unknown COMPLETE BLOOD COUNT 0188867 PLATELET COUNT 191 10e9/L 04/2015 Unknown COMPLETE BLOOD COUNT 7071121 Mean Plt Volume 11.7 fL 04/2015 Unknown COMPLETE BLOOD COUNT 8536073 Neut Auto 64.2 % 6 Unknown COMPLETE BLOOD COUNT 5542135 Lymph Auto 25.9 % 03/06/20 16 Unknown COMPLETE BLOOD COUNT 4567310 [place] Auto 7.8 % 6 Unknown COMPLETE BLOOD COUNT 6461208 RDW 13.4 % 6 Unknown COMPLETE BLOOD COUNT 3035808 Eos Auto 2.0 % 6 Unknown COMPLETE BLOOD COUNT 3105411 Baso Auto 0.1 % 6 Unknown COMPLETE BLOOD COUNT 5080731 Neutrophil Abs 5.46 10e9/L Unknown COMPLETE BLOOD COUNT 6659924 Lymphocyte Abs 2.20 10e9/L Unknown COMPLETE BLOOD COUNT 7245717 Monocyte Abs 0.66 10e9/L 04/2015 Unknown COMPLETE BLOOD COUNT 8267734 Eosinophil Abs 0.17 10e9/L Unknown COMPLETE BLOOD COUNT 0628825 RDW-SD 45.0 fL 6 Unknown COMPLETE BLOOD COUNT 6571330 Basophil Abs 0.01 10e9/L 04/2015 Unknown FREE T4 83538 T4 Free 1.34 ng/dL 03/06/2016 Unknown MEAN GLUC 3690588 Calc Mean Gluc 140 mg/dL 03/06/2016 Unkn own COMPREHENSIVE METABOLIC 49836 AST 15 U/L 2015 Unknown COMPREHENSIVE METABOLIC 70744 ALT 18 U/L 2015 Unknown COMPREHENSIVE METABOLIC 25109 BUN 21 mg/dL 2015 Unknown COMPREHENSIVE METABOLIC 23186 ALBUMIN 4.3 g/dL 2015 Unknown COMPREHENSIVE METABOLIC 55073 CHLORIDE 103 mmol/L 03/06 Unknown COMPREHENSIVE METABOLIC 00616 Bili Total 0.4 mg/dL 03/06 Unknown COMPREHENSIVE METABOLIC 92404 ALK PHOS 68 U/L 2015 Unknown COMPREHENSIVE METABOLIC 85830 SODIUM 140 mmol/L 03/06 Unknown COMPREHENSIVE METABOLIC 85578 CREATININE 1.31 mg/dL 04/2015 Unknown COMPREHENSIVE METABOLIC 76842 CALCIUM 9.4 mg/dL 2015 Unknown COMPREHENSIVE METABOLIC 86484 POTASSIUM 4.8 mmol/L 03/06 Unknown COMPREHENSIVE METABOLIC 67612 Total Protein 6.6 g/dL Unknown COMPREHENSIVE METABOLIC 82697 Glucose 142 mg/dL 2015 Unknown COMPREHENSIVE METABOLIC 88072 Bicarbonate 29 mmol/L 04/2015 Unknown COMPREHENSIVE METABOLIC 52347 AGAP 8 mmol/L 2015 Unknown THYROID STIMULATING HORMONE 12673 TSH 2.288 uIU/mL 03/06/2016 Unknown LIPID GROUP 66055 Cholesterol 154 mg/dL 03/06/2016 Unkno wn LIPID GROUP 03978 Triglyceride 266 mg/dL 03/06/2016 Unkn own LIPID GROUP 76624 HDL CHOLESTEROL 38 mg/dL 03/06/2016 U nknown LIPID GROUP 90738 Chol/HDL Ratio 4.05 ratio 03/06/2016 U nknown LIPID GROUP 85617 NON-HDL Chol 116 mg/dL 03/06/2016 Unkn own LIPID GROUP 23132 LDL Cholesterol 63 mg/dL 03/06/2016 U nknown MEAN GLUC 5466908 Mean Glucose 128 mg/dL 08/31/2015 Unknow n COMPLETE BLOOD COUNT 8449244 WBC 8.4 10e9/L 08/31/19 16 Unknown COMPLETE BLOOD COUNT [id number] RBC 4.12 10e12/L 2015 Unknown COMPLETE BLOOD COUNT 8078423 HEMOGLOBIN 12.8 g/dL 08/31/19 16 Unknown COMPLETE BLOOD COUNT 6875782 HEMATOCRIT 39.6 % 08/31/19 16 Unknown COMPLETE BLOOD COUNT 1177129 MCV 96.1 fL 6 Unknown COMPLETE BLOOD COUNT 6029435 MCH 31.1 pg 6 Unknown COMPLETE BLOOD COUNT 2742566 MCHC 32.3 g/dL 6 Unknown COMPLETE BLOOD COUNT 5149453 PLATELET COUNT 184 10e9/L Unknown COMPLETE BLOOD COUNT 4635716 Mean Plt Volume 12.0 fL Unknown COMPLETE BLOOD COUNT 8996583 Neut Auto 59.8 % 6 Unknown COMPLETE BLOOD COUNT 1068279 Lymph Auto 27.9 % 08/31/19 16 Unknown COMPLETE BLOOD COUNT 8395280 [place] Auto 9.1 % 6 Unknown COMPLETE BLOOD COUNT 2121381 RDW 13.6 % 6 Unknown COMPLETE BLOOD COUNT 3222718 Eos Auto 3.1 % 6 Unknown COMPLETE BLOOD COUNT 5444943 Baso Auto 0.1 % 6 Unknown COMPLETE BLOOD COUNT 5951038 Neutrophil Abs 5.02 10e9/L Unknown COMPLETE BLOOD COUNT 3749918 Lymphoctye Abs 2.34 10e9/L Unknown COMPLETE BLOOD COUNT [id number] Monocyte Abs 0.76 10e9/L 08/05 Unknown COMPLETE BLOOD COUNT 6655256 Eosinophil Abs 0.26 10e9/L Unknown COMPLETE BLOOD COUNT 0289688 RDW-SD 46.3 fL 6 Unknown COMPLETE BLOOD COUNT [id number] Basophil Abs 0.01 10e9/L 08/05 Unknown GLYCOSYLATED HEMOGLOBIN TEST 30083 Hgb A1c 82656-8 6.1 % 0 08/31/2015 Unknown GFR CALC 9859765 GFR Non Afr Amr >60 mL/min 08/31/2015 Un known GFR CALC 6775172 GFR Afr Amr >60 mL/min 08/31/2015 Unknow n FREE T4 29370 T4 Free 1.21 ng/dL 08/31/2015 Unknown THYROID STIMULATING HORMONE 26261 TSH 2.988 uIU/mL 08/31/2015 Unknown COMPREHENSIVE METABOLIC 08974 AST 16 U/L 2015 Unknown COMPREHENSIVE METABOLIC 68760 ALT 19 U/L 2015 Unknown COMPREHENSIVE METABOLIC 31736 BUN 17 mg/dL 2015 Unknown COMPREHENSIVE METABOLIC 56542 ALBUMIN 4.3 g/dL 2015 Unknown COMPREHENSIVE METABOLIC 34399 CHLORIDE 107 mmol/L 08/30 Unknown COMPREHENSIVE METABOLIC 83992 Bili Total 0.4 mg/dL 08/30 Unknown COMPREHENSIVE METABOLIC 87147 ALK PHOS 66 U/L 2015 Unknown COMPREHENSIVE METABOLIC 54420 SODIUM 140 mmol/L 08/30 Unknown COMPREHENSIVE METABOLIC 33400 CREATININE 1.07 mg/dL 08/05 Unknown COMPREHENSIVE METABOLIC 23729 CALCIUM 9.5 mg/dL 2015 Unknown COMPREHENSIVE METABOLIC 26031 POTASSIUM 4.5 mmol/L 08/30 Unknown COMPREHENSIVE METABOLIC 44005 Total Protein 6.7 g/dL Unknown COMPREHENSIVE METABOLIC 12823 Glucose 122 mg/dL 2015 Unknown COMPREHENSIVE METABOLIC 83305 Bicarbonate 26 mmol/L 08/05 Unknown COMPREHENSIVE METABOLIC 61688 AGAP 7 mmol/L 2015 Unknown LIPID GROUP 59727 Cholesterol 171 mg/dL 08/31/2015 Unkno wn LIPID GROUP 42496 Triglyceride 428 mg/dL 08/31/2015 Unkn own LIPID GROUP 83230 HDL CHOLESTEROL 35 mg/dL 08/31/2015 U nknown LIPID GROUP 74854 Chol/HDL Ratio 4.89 ratio 08/31/2015 U nknown LIPID GROUP 18972 NON-HDL Chol 136 mg/dL 08/31/2015 Unkn own LIPID GROUP 96490 LDL Cholesterol 50 mg/dL 08/31/2015 U nknown PSA EQUIMOLAR JERSON 96754 PSA Total 0.47 ng/mL 6 Unknown GFR CALC 7748168 GFR AA >60 ML/MIN 01/12/2015 Unknown GFR CALC 3896521 GFR NON-AA >60 ML/MIN 01/12/2015 Unknown COMPREHENSIVE METABOLIC 81588 AST 18 U/L 2014 Unknown COMPREHENSIVE METABOLIC 05226 ALT 19 IU/L 2014 Unknown COMPREHENSIVE METABOLIC 95231 BUN 19 MG/DL 2014 Unknown COMPREHENSIVE METABOLIC 89721 ALBUMIN 4.7 GM/DL 2014 Unknown COMPREHENSIVE METABOLIC 79859 CHLORIDE 104 MMOL/L 01/12 Unknown COMPREHENSIVE METABOLIC 15980 BILI TOT 0.8 MG/DL 2014 Unknown COMPREHENSIVE METABOLIC 53792 ALK PHOS 58 U/L 2014 Unknown COMPREHENSIVE METABOLIC 72275 SODIUM 139 MMOL/L 01/12 Unknown COMPREHENSIVE METABOLIC 46827 CREATININE 1.09 MG/DL 12/2014 Unknown COMPREHENSIVE METABOLIC 31210 CALCIUM 9.6 MG/DL 2014 Unknown COMPREHENSIVE METABOLIC 41643 POTASSIUM 4.4 MMOL/L 01/12 Unknown COMPREHENSIVE METABOLIC 53920 PROT TOT 6.7 GM/DL 2014 Unknown COMPREHENSIVE METABOLIC 57190 Glucose 109 MG/DL 2014 Unknown COMPREHENSIVE METABOLIC 58738 BICARB 27 MMOL/L 2014 Unknown COMPREHENSIVE METABOLIC 74367 ANION GAP 8 MEQ/L 2014 Unknown LIPID GROUP 85544 HDL TEST 36 MG/DL 01/12/2015 Unknown LIPID GROUP 87550 TRIG 220 MG/DL 01/12/2015 Unknown LIPID GROUP 97960 TEST LDL 58 MG/DL 01/12/2015 Unknown LIPID GROUP 08702 CHOL 138 MG/DL 01/12/2015 Unknown LIPID GROUP 68183 RCHOL/HDL 3.83 RATIO 01/12/2015 Unknow n LIPID GROUP 61025 NON-HDL CH 102 MG/DL 01/12/2015 Unknow n GLYCOSYLATED HEMOGLOBIN TEST 71007 A1C [facility] 93785-1 6.1 % 1 Unknown COMPLETE BLOOD COUNT 6557743 WBC 7.1 10e9/L 01/13/20 15 Unknown COMPLETE BLOOD COUNT 1980325 RBC 4.38 10e12/L 2014 Unknown COMPLETE BLOOD COUNT 9320909 HGB 13.7 g/dL 5 Unknown COMPLETE BLOOD COUNT 8230062 HCT DET 41.3 % 5 Unknown COMPLETE BLOOD COUNT 5833018 MCV 94.3 fL 5 Unknown COMPLETE BLOOD COUNT 3789141 MCH 31.3 pg 5 Unknown COMPLETE BLOOD COUNT 5414209 MCHC 33.2 g/dL 5 Unknown COMPLETE BLOOD COUNT 3918826 PLT 174 10e9/L 01/13/20 15 Unknown COMPLETE BLOOD COUNT 0952342 MPV 11.8 fL 5 Unknown COMPLETE BLOOD COUNT 6103949 SAMIR % 61.3 % 5 Unknown COMPLETE BLOOD COUNT 7833373 LY % 28.3 % 5 Unknown COMPLETE BLOOD COUNT 3609360 MON % 7.6 % 5 Unknown COMPLETE BLOOD COUNT 5463570 EOS % 2.7 % 5 Unknown COMPLETE BLOOD COUNT 9959734 BASO % 0.1 % 5 Unknown COMPLETE BLOOD COUNT 3264856 RDW 13.1 % 5 Unknown COMPLETE BLOOD COUNT 9048711 ABS SAMIR 4.35 10e9/L 015 Unknown COMPLETE BLOOD COUNT 5548209 ABS LYMPH 2.01 10e9/L 015 Unknown COMPLETE BLOOD COUNT 3557399 ABS MONO 0.54 10e9/L 015 Unknown COMPLETE BLOOD COUNT [id number] ABS EOS 0.19 10e9/L 015 Unknown COMPLETE BLOOD COUNT 0483232 ABS BASO 0.01 10e9/L 015 Unknown COMPLETE BLOOD COUNT 5356191 RDW-SD 43.9 fL 5 Unknown GLYCOSYLATED HEMOGLOBIN TEST 93258 A1C HPLC 70630-5 6.1 % 0 08/15/2014 Unknown COMPLETE BLOOD COUNT 2387043 WBC 9.7 10e9/L 08/16/19 15 Unknown COMPLETE BLOOD COUNT 3950414 RBC 4.29 10e12/L 2014 Unknown COMPLETE BLOOD COUNT 4240239 HGB 13.3 g/dL 5 Unknown COMPLETE BLOOD COUNT 2338421 HCT DET 40.5 % 5 Unknown COMPLETE BLOOD COUNT 6981739 MCV 94.4 fL 5 Unknown COMPLETE BLOOD COUNT 6969537 MCH 31.0 pg 5 Unknown COMPLETE BLOOD COUNT 5951550 MCHC 32.8 g/dL 5 Unknown COMPLETE BLOOD COUNT 2645832 PLT 227 10e9/L 08/16/19 15 Unknown COMPLETE BLOOD COUNT 8208519 MPV 11.0 fL 5 Unknown COMPLETE BLOOD COUNT 6841018 SAMIR % 66.4 % 5 Unknown COMPLETE BLOOD COUNT 4068350 LY % 23.7 % 5 Unknown COMPLETE BLOOD COUNT 7601198 MON % 8.1 % 5 Unknown COMPLETE BLOOD COUNT 8886222 EOS % 1.6 % 5 Unknown COMPLETE BLOOD COUNT 0227819 BASO % 0.2 % 5 Unknown COMPLETE BLOOD COUNT 3101433 RDW 13.4 % 5 Unknown COMPLETE BLOOD COUNT 4840802 ABS SAMIR 6.44 10e9/L 015 Unknown COMPLETE BLOOD COUNT 7149559 ABS LYMPH 2.30 10e9/L 015 Unknown COMPLETE BLOOD COUNT 6401643 ABS MONO 0.79 10e9/L 015 Unknown COMPLETE BLOOD COUNT 4048966 ABS EOS 0.16 10e9/L 015 Unknown COMPLETE BLOOD COUNT 0758504 ABS BASO 0.02 10e9/L 015 Unknown COMPLETE BLOOD COUNT 3738870 RDW-SD 44.7 fL 5 Unknown COMPREHENSIVE METABOLIC 50701 AST 17 U/L 2014 Unknown COMPREHENSIVE METABOLIC 41847 ALT 23 IU/L 2014 Unknown COMPREHENSIVE METABOLIC 66883 BUN 16 MG/DL 2014 Unknown COMPREHENSIVE METABOLIC 58097 ALBUMIN 4.3 GM/DL 2014 Unknown COMPREHENSIVE METABOLIC 72499 CHLORIDE 107 MMOL/L 08/15 Unknown COMPREHENSIVE METABOLIC 64891 BILI TOT 0.4 MG/DL 2014 Unknown COMPREHENSIVE METABOLIC 25079 ALK PHOS 91 U/L 2014 Unknown COMPREHENSIVE METABOLIC 08628 SODIUM 139 MMOL/L 08/15 Unknown COMPREHENSIVE METABOLIC 21321 CREATININE 1.07 MG/DL 08/04 Unknown COMPREHENSIVE METABOLIC 17321 CALCIUM 9.6 MG/DL 2014 Unknown COMPREHENSIVE METABOLIC 32801 POTASSIUM 4.6 MMOL/L 08/15 Unknown COMPREHENSIVE METABOLIC 17728 PROT TOT 6.7 GM/DL 2014 Unknown COMPREHENSIVE METABOLIC 11360 Glucose 111 MG/DL 2014 Unknown COMPREHENSIVE METABOLIC 02391 BICARB 27 MMOL/L 2014 Unknown COMPREHENSIVE METABOLIC 79753 ANION GAP 5 MEQ/L 2014 Unknown GFR CALC 3439189 GFR AA >60 ML/MIN 08/15/2014 Unknown GFR CALC 6228741 GFR NON-AA >60 ML/MIN 08/15/2014 Unknown THYROID STIMULATING HORMONE 03279 TSH 1.598 uIU/ML 08/15/2014 Unknown LIPID GROUP 98894 HDL TEST 33 MG/DL 08/15/2014 Unknown LIPID GROUP 49847 TRIG 187 MG/DL 08/15/2014 Unknown LIPID GROUP 55281 TEST LDL 58 MG/DL 08/15/2014 Unknown LIPID GROUP 37004 CHOL 128 MG/DL 08/15/2014 Unknown LIPID GROUP 13254 RCHOL/HDL 3.88 RATIO 08/15/2014 Unknow n LIPID GROUP 83598 NON-HDL CH 95 MG/DL 08/15/2014 Unknow n PSA EQUIMOLAR JERSON 25043 PSA EQ 0.70 NG/ML 5 Unknown FREE T4 62614 FREE T4 1.32 NG/DL 08/15/2014 Unknown GFR CALC [id number] GFR AA >60 ML/MIN 12/14/2013 Unknown GFR CALC 2926250 GFR NON-AA 58.0L ML/MIN 12/14/2013 Unkno wn COMPLETE BLOOD COUNT [id number] WBC 8.7 10e9/L 12/15/19 14 Unknown COMPLETE BLOOD COUNT [id number] RBC 4.32 10e12/L 2013 Unknown COMPLETE BLOOD COUNT [id number] HGB 13.5 g/dL 4 Unknown COMPLETE BLOOD COUNT 1489247 HCT DET 40.6 % 4 Unknown COMPLETE BLOOD COUNT 7051677 MCV 94.0 fL 4 Unknown COMPLETE BLOOD COUNT [id number] MCH 31.3 pg 4 Unknown COMPLETE BLOOD COUNT [id number] MCHC 33.3 g/dL 4 Unknown COMPLETE BLOOD COUNT 9403191 PLT 205 10e9/L 12/15/19 14 Unknown COMPLETE BLOOD COUNT 0001559 MPV 11.7 fL 4 Unknown COMPLETE BLOOD COUNT [id number] SAMRI % 62.5 % 4 Unknown COMPLETE BLOOD COUNT [id number] LY % 26.9 % 4 Unknown COMPLETE BLOOD COUNT 7241388 MON % 8.8 % 4 Unknown COMPLETE BLOOD COUNT [id number] EOS % 1.7 % 4 Unknown COMPLETE BLOOD COUNT [id number] BASO % 0.1 % 4 Unknown COMPLETE BLOOD COUNT 1016099 RDW 13.4 % 4 Unknown COMPLETE BLOOD COUNT [id number] ABS SAMIR 5.44 10e9/L 014 Unknown COMPLETE BLOOD COUNT 6576354 ABS LYMPH 2.34 10e9/L 014 Unknown COMPLETE BLOOD COUNT [id number] ABS MONO 0.77 10e9/L 014 Unknown COMPLETE BLOOD COUNT [id number] ABS EOS 0.15 10e9/L 014 Unknown COMPLETE BLOOD COUNT [id number] ABS BASO 0.01 10e9/L 014 Unknown COMPLETE BLOOD COUNT [id number] RDW-SD 44.7 fL 4 Unknown COMPREHENSIVE METABOLIC 93713 AST 14 U/L 2013 Unknown COMPREHENSIVE METABOLIC 25005 ALT 12 IU/L 2013 Unknown COMPREHENSIVE METABOLIC 81788 BUN 24 MG/DL 2013 Unknown COMPREHENSIVE METABOLIC 10950 ALBUMIN 4.5 GM/DL 2013 Unknown COMPREHENSIVE METABOLIC 53148 CHLORIDE 104 MMOL/L 12/14 Unknown COMPREHENSIVE METABOLIC 87395 BILI TOT 0.6 MG/DL 2013 Unknown COMPREHENSIVE METABOLIC 75709 ALK PHOS 82 U/L 2013 Unknown COMPREHENSIVE METABOLIC 52640 SODIUM 135 MMOL/L 12/14 Unknown COMPREHENSIVE METABOLIC 38649 CREATININE 1.25 MG/DL 12/05 Unknown COMPREHENSIVE METABOLIC 34133 CALCIUM 9.8 MG/DL 2013 Unknown COMPREHENSIVE METABOLIC 42279 POTASSIUM 4.7 MMOL/L 12/14 Unknown COMPREHENSIVE METABOLIC 89523 PROT TOT 6.7 GM/DL 2013 Unknown COMPREHENSIVE METABOLIC 67439 Glucose 126 MG/DL 2013 Unknown COMPREHENSIVE METABOLIC 41597 BICARB 27 MMOL/L 2013 Unknown COMPREHENSIVE METABOLIC 53988 ANION GAP 4 MEQ/L 2013 Unknown THYROID STIMULATING HORMONE 62792 TSH 3.281 uIU/ML 12/14/2013 Unknown FREE T4 15629 FREE T4 1.28 NG/DL 12/14/2013 Unknown LIPID GROUP 77472 HDL TEST 36 MG/DL 12/14/2013 Unknown LIPID GROUP 40096 TRIG 253 MG/DL 12/14/2013 Unknown LIPID GROUP 05010 TEST LDL 56 MG/DL 12/14/2013 Unknown LIPID GROUP 56497 CHOL 143 MG/DL 12/14/2013 Unknown LIPID GROUP 41317 RCHOL/HDL 3.97 RATIO 12/14/2013 Unknow n LIPID GROUP 35814 NON-HDL CH 107 MG/DL 12/14/2013 Unknow n GLYCOSYLATED HEMOGLOBIN TEST 88181 A1C HPLC 06966-3 6.1 % 0 12/14/2013 Unknown GLYCOSYLATED HEMOGLOBIN TEST 09238 A1C HPLC 08553-9 6.0 % 0 06/08/2013 Unknown LIPID GROUP 79850 HDL TEST 39 MG/DL 06/08/2013 Unknown LIPID GROUP 91446 TRIG 166 MG/DL 06/08/2013 Unknown LIPID GROUP 50699 TEST LDL 86 MG/DL 06/08/2013 Unknown LIPID GROUP 61916 CHOL 158 MG/DL 06/08/2013 Unknown LIPID GROUP 75071 RCHOL/HDL 4.05 RATIO 06/08/2013 Unknow n COMPREHENSIVE METABOLIC 52461 AST 17 U/L 2013 Unknown COMPREHENSIVE METABOLIC 46908 ALT 25 IU/L 2013 Unknown COMPREHENSIVE METABOLIC 14453 BUN 18 MG/DL 2013 Unknown COMPREHENSIVE METABOLIC 50968 ALBUMIN 4.5 GM/DL 2013 Unknown COMPREHENSIVE METABOLIC 61010 CHLORIDE 103 MMOL/L 06/08 Unknown COMPREHENSIVE METABOLIC 78499 BILI TOT 0.4 MG/DL 2013 Unknown COMPREHENSIVE METABOLIC 21906 ALK PHOS 72 U/L 2013 Unknown COMPREHENSIVE METABOLIC 17345 SODIUM 137 MMOL/L 06/08 Unknown COMPREHENSIVE METABOLIC 13111 CREATININE 1.07 MG/DL 08/2013 Unknown COMPREHENSIVE METABOLIC 99810 CALCIUM 9.7 MG/DL 2013 Unknown COMPREHENSIVE METABOLIC 57413 POTASSIUM 4.7 MMOL/L 06/08 Unknown COMPREHENSIVE METABOLIC 05979 PROT TOT 6.6 GM/DL 2013 Unknown COMPREHENSIVE METABOLIC 47247 Glucose 130 MG/DL 2013 Unknown COMPREHENSIVE METABOLIC 20975 BICARB 25 MMOL/L 2013 Unknown COMPREHENSIVE METABOLIC 83969 ANION GAP 9 MEQ/L 2013 Unknown FREE T4 86869 FREE T4 1.29 NG/DL 06/08/2013 Unknown THYROID STIMULATING HORMONE 59379 TSH 2.445 uIU/ML 06/08/2013 Unknown GFR CALC 6432046 GFR AA >60 ML/MIN 06/08/2013 Unknown GFR CALC 3044791 GFR NON-AA >60 ML/MIN 06/08/2013 Unknown COMPLETE BLOOD COUNT 8600693 WBC 8.2 10e9/L 06/09/19 14 Unknown COMPLETE BLOOD COUNT [id number] RBC 4.63 10e12/L 2013 Unknown COMPLETE BLOOD COUNT 3720848 HGB 14.1 g/dL 4 Unknown COMPLETE BLOOD COUNT 4026635 HCT DET 42.6 % 4 Unknown COMPLETE BLOOD COUNT 6301996 MCV 92.0 fL 4 Unknown COMPLETE BLOOD COUNT 6363373 MCH 30.5 pg 4 Unknown COMPLETE BLOOD COUNT 0372161 MCHC 33.1 g/dL 4 Unknown COMPLETE BLOOD COUNT 1187552 PLT 222 10e9/L 06/09/19 14 Unknown COMPLETE BLOOD COUNT 9424997 MPV 10.8 fL 4 Unknown COMPLETE BLOOD COUNT [id number] SAMIR % 60.8 % 4 Unknown COMPLETE BLOOD COUNT 2881702 LY % 29.2 % 4 Unknown COMPLETE BLOOD COUNT 2193723 MON % 7.6 % 4 Unknown COMPLETE BLOOD COUNT 5709875 EOS % 2.3 % 4 Unknown COMPLETE BLOOD COUNT 3385676 BASO % 0.1 % 4 Unknown COMPLETE BLOOD COUNT 4836450 RDW 13.7 % 4 Unknown COMPLETE BLOOD COUNT 3911943 ABS SAMIR 4.99 10e9/L 014 Unknown COMPLETE BLOOD COUNT [id number] ABS LYMPH 2.39 10e9/L 014 Unknown COMPLETE BLOOD COUNT 9922383 ABS MONO 0.62 10e9/L 014 Unknown COMPLETE BLOOD COUNT 1336252 ABS EOS 0.19 10e9/L 014 Unknown COMPLETE BLOOD COUNT 2309091 ABS BASO 0.01 10e9/L 014 Unknown COMPLETE BLOOD COUNT 4282273 RDW-SD 45.2 fL 4 Unknown LIPID GROUP 97456 HDL TEST 40 MG/DL 11/11/2012 Unknown LIPID GROUP 62786 TRIG 153 MG/DL 11/11/2012 Unknown LIPID GROUP 37282 TEST LDL 71 MG/DL 11/11/2012 Unknown LIPID GROUP 18350 CHOL 142 MG/DL 11/11/2012 Unknown LIPID GROUP 03068 RCHOL/HDL 3.55 RATIO 11/11/2012 Unknow n GFR CALC 9336494 GFR AA >60 ML/MIN 11/11/2012 Unknown GFR CALC 6011349 GFR NON-AA 57.0L ML/MIN 11/11/2012 Unkno wn HEMOGLOBIN A1C (GLYCOSYLATED) 0859515 A1C HPLC 41884-9 5.9 % 11/11/2012 Unknown THYROID STIMULATING HORMONE 10229 TSH 2.439 uIU/ML 11/11/2012 Unknown COMPLETE BLOOD COUNT 0509523 WBC 8.5 10e9/L 11/12/19 13 Unknown COMPLETE BLOOD COUNT 3394299 RBC 4.42 10e12/L 2012 Unknown COMPLETE BLOOD COUNT 3663806 HGB 13.7 g/dL 3 Unknown COMPLETE BLOOD COUNT 1999592 HCT DET 41.3 % 3 Unknown COMPLETE BLOOD COUNT 8092012 MCV 93.4 fL 3 Unknown COMPLETE BLOOD COUNT 0216317 MCH 31.0 pg 3 Unknown COMPLETE BLOOD COUNT 8539870 MCHC 33.2 g/dL 3 Unknown COMPLETE BLOOD COUNT 8765133 PLT 220 10e9/L 11/12/19 13 Unknown COMPLETE BLOOD COUNT 5975366 MPV 10.8 fL 3 Unknown COMPLETE BLOOD COUNT 0852174 SAMIR % 60.4 % 3 Unknown COMPLETE BLOOD COUNT 0394421 LY % 28.7 % 3 Unknown COMPLETE BLOOD COUNT 6736475 MON % 8.0 % 3 Unknown COMPLETE BLOOD COUNT 1390866 EOS % 2.8 % 3 Unknown COMPLETE BLOOD COUNT 5957013 BASO % 0.1 % 3 Unknown COMPLETE BLOOD COUNT 5342003 RDW 13.7 % 3 Unknown COMPLETE BLOOD COUNT 4049794 ABS SAMIR 5.13 10e9/L 013 Unknown COMPLETE BLOOD COUNT 1279942 ABS LYMPH 2.44 10e9/L 013 Unknown COMPLETE BLOOD COUNT 1534860 ABS MONO 0.68 10e9/L 013 Unknown COMPLETE BLOOD COUNT 5208019 ABS EOS 0.24 10e9/L 013 Unknown COMPLETE BLOOD COUNT [id number] ABS BASO 0.01 10e9/L 013 Unknown COMPLETE BLOOD COUNT 1010973 RDW-SD 45.6 fL 3 Unknown COMPREHENSIVE METABOLIC 81038 AST 19 U/L 2012 Unknown COMPREHENSIVE METABOLIC 17197 ALT 28 IU/L 2012 Unknown COMPREHENSIVE METABOLIC 74906 BUN 31 MG/DL 2012 Unknown COMPREHENSIVE METABOLIC 85886 ALBUMIN 4.7 GM/DL 2012 Unknown COMPREHENSIVE METABOLIC 90187 CHLORIDE 106 MMOL/L 11/11 Unknown COMPREHENSIVE METABOLIC 12392 BILI TOT 0.5 MG/DL 2012 Unknown COMPREHENSIVE METABOLIC 69572 ALK PHOS 64 U/L 2012 Unknown COMPREHENSIVE METABOLIC 57241 SODIUM 136 MMOL/L 11/11 Unknown COMPREHENSIVE METABOLIC 31627 CREATININE 1.27 MG/DL 11/2012 Unknown COMPREHENSIVE METABOLIC 83274 CALCIUM 9.4 MG/DL 2012 Unknown COMPREHENSIVE METABOLIC 49363 POTASSIUM 4.9 MMOL/L 11/11 Unknown COMPREHENSIVE METABOLIC 77220 PROT TOT 6.7 GM/DL 2012 Unknown COMPREHENSIVE METABOLIC 13305 Glucose 108 MG/DL 2012 Unknown COMPREHENSIVE METABOLIC 56319 BICARB 21 MMOL/L 2012 Unknown COMPREHENSIVE METABOLIC 70448 ANION GAP 9 MEQ/L 2012 Unknown THYROID STIMULATING HORMONE 23493 TSH 2.572 uIU/ML 05/04/2012 Unknown COMPLETE BLOOD COUNT 2013362 WBC 9.3 10e9/L 05/04/19 13 Unknown COMPLETE BLOOD COUNT [id number] RBC 4.43 10e12/L 2012 Unknown COMPLETE BLOOD COUNT 4961219 HGB 14.2 g/dL 3 Unknown COMPLETE BLOOD COUNT 2352378 HCT DET 41.1 % 3 Unknown COMPLETE BLOOD COUNT 5532639 MCV 92.8 fL 3 Unknown COMPLETE BLOOD COUNT 2464864 MCH 32.1 pg 3 Unknown COMPLETE BLOOD COUNT 6638712 MCHC 34.5 g/dL 3 Unknown COMPLETE BLOOD COUNT 7149665 PLT 193 10e9/L 05/04/19 13 Unknown COMPLETE BLOOD COUNT 3042199 MPV 10.8 fL 3 Unknown COMPLETE BLOOD COUNT 8181844 SAMIR % 63.0 % 3 Unknown COMPLETE BLOOD COUNT 5348263 LY % 25.3 % 3 Unknown COMPLETE BLOOD COUNT 8030740 MON % 9.1 % 3 Unknown COMPLETE BLOOD COUNT 6997970 EOS % 2.5 % 3 Unknown COMPLETE BLOOD COUNT 9040056 BASO % 0.1 % 3 Unknown COMPLETE BLOOD COUNT 4372275 RDW 12.6 % 3 Unknown COMPLETE BLOOD COUNT 0715044 ABS SAMIR 5.86 10e9/L 013 Unknown COMPLETE BLOOD COUNT 0587704 ABS LYMPH 2.35 10e9/L 013 Unknown COMPLETE BLOOD COUNT [id number] ABS MONO 0.85 10e9/L 013 Unknown COMPLETE BLOOD COUNT [id number] ABS EOS 0.23 10e9/L 013 Unknown COMPLETE BLOOD COUNT 2904973 ABS BASO 0.01 10e9/L 013 Unknown COMPLETE BLOOD COUNT 1947415 RDW-SD 41.2 fL 3 Unknown LIPID GROUP 95248 HDL TEST 35 MG/DL 05/04/2012 Unknown LIPID GROUP 04323 TRIG 236 MG/DL 05/04/2012 Unknown LIPID GROUP 90070 TEST LDL 64 MG/DL 05/04/2012 Unknown LIPID GROUP 39356 CHOL 146 MG/DL 05/04/2012 Unknown LIPID GROUP 44628 RCHOL/HDL 4.17 RATIO 05/04/2012 Unknow n COMPREHENSIVE METABOLIC 21569 AST 23 U/L 2012 Unknown COMPREHENSIVE METABOLIC 29674 ALT 33 IU/L 2012 Unknown COMPREHENSIVE METABOLIC 12835 BUN 16 MG/DL 2012 Unknown COMPREHENSIVE METABOLIC 39657 ALBUMIN 4.8 GM/DL 2012 Unknown COMPREHENSIVE METABOLIC 29969 CHLORIDE 104 MMOL/L 05/04 Unknown COMPREHENSIVE METABOLIC 56967 BILI TOT 0.5 MG/DL 2012 Unknown COMPREHENSIVE METABOLIC 34365 ALK PHOS 70 U/L 2012 Unknown COMPREHENSIVE METABOLIC 06383 SODIUM 138 MMOL/L 05/04 Unknown COMPREHENSIVE METABOLIC 87767 CREATININE 1.08 MG/DL 04/07 Unknown COMPREHENSIVE METABOLIC 02341 CALCIUM 9.7 MG/DL 2012 Unknown COMPREHENSIVE METABOLIC 37230 POTASSIUM 4.4 MMOL/L 05/04 Unknown COMPREHENSIVE METABOLIC 83183 PROT TOT 6.8 GM/DL 2012 Unknown COMPREHENSIVE METABOLIC 20916 Glucose 114 MG/DL 2012 Unknown COMPREHENSIVE METABOLIC 08993 BICARB 27 MMOL/L 2012 Unknown COMPREHENSIVE METABOLIC 29363 ANION GAP 7 MEQ/L 2012 Unknown FREE T4 65238 FREE T4 1.11 NG/DL 05/04/2012 Unknown GFR CALC 6245346 GFR AA >60 ML/MIN 05/04/2012 Unknown GFR CALC 1473950 GFR NON-AA >60 ML/MIN 05/04/2012 Unknown GLYCOSYLATED HEMOGLOBIN TEST 26428 A1C HPLC 34368-3 5.8 % 0 10/29/2011 Unknown COMPREHENSIVE METABOLIC 45003 AST 17 U/L 2011 Unknown COMPREHENSIVE METABOLIC 29717 ALT 21 IU/L 2011 Unknown COMPREHENSIVE METABOLIC 06023 BUN 17 MG/DL 2011 Unknown COMPREHENSIVE METABOLIC 84123 ALBUMIN 4.8 GM/DL 2011 Unknown COMPREHENSIVE METABOLIC 41234 CHLORIDE 106 MMOL/L 10/28 Unknown COMPREHENSIVE METABOLIC 90265 BILI TOT 0.6 MG/DL 2011 Unknown COMPREHENSIVE METABOLIC 61938 ALK PHOS 57 U/L 2011 Unknown COMPREHENSIVE METABOLIC 33796 SODIUM 139 MMOL/L 10/28 Unknown COMPREHENSIVE METABOLIC 85714 CREATININE 1.08 MG/DL 10/05 Unknown COMPREHENSIVE METABOLIC 15735 CALCIUM 9.6 MG/DL 2011 Unknown COMPREHENSIVE METABOLIC 58411 POTASSIUM 4.4 MMOL/L 10/28 Unknown COMPREHENSIVE METABOLIC 61710 PROT TOT 6.9 GM/DL 2011 Unknown COMPREHENSIVE METABOLIC 98012 Glucose 104 MG/DL 2011 Unknown COMPREHENSIVE METABOLIC 33831 BICARB 25 MMOL/L 2011 Unknown COMPREHENSIVE METABOLIC 57298 ANION GAP 8 MEQ/L 2011 Unknown LIPID GROUP 42518 HDL TEST 39 MG/DL 10/29/2011 Unknown LIPID GROUP 82463 TRIG 176 MG/DL 10/29/2011 Unknown LIPID GROUP 97649 TEST LDL 70 MG/DL 10/29/2011 Unknown LIPID GROUP 00004 CHOL 144 MG/DL 10/29/2011 Unknown LIPID GROUP 91655 RCHOL/HDL 3.69 RATIO 10/29/2011 Unknow n GFR CALC 3291848 GFR AA >60 ML/MIN 10/29/2011 Unknown GFR CALC 3472277 GFR NON-AA >60 ML/MIN 10/29/2011 Unknown GFR CALC 1341622 GFR AA >60 ML/MIN 03/14/2011 Unknown GFR CALC 8061157 GFR NON-AA >60 ML/MIN 03/14/2011 Unknown GLYCOSYLATED HEMOGLOBIN TEST 82275 A1C HPLC 05127-3 5.7 % 1 05/15/2010 Unknown COMPREHENSIVE METABOLIC 37446 AST 18 U/L 2010 Unknown COMPREHENSIVE METABOLIC 02437 ALT 25 IU/L 2010 Unknown COMPREHENSIVE METABOLIC 05838 BUN 15 MG/DL 2010 Unknown COMPREHENSIVE METABOLIC 89190 ALBUMIN 4.6 GM/DL 2010 Unknown COMPREHENSIVE METABOLIC 83250 CHLORIDE 107 MMOL/L 03/14 Unknown COMPREHENSIVE METABOLIC 03945 BILI TOT 0.6 MG/DL 2010 Unknown COMPREHENSIVE METABOLIC 31889 ALK PHOS 54 U/L 2010 Unknown COMPREHENSIVE METABOLIC 77193 SODIUM 140 MMOL/L 03/14 Unknown COMPREHENSIVE METABOLIC 51621 CREATININE 1.02 MG/DL 12/2010 Unknown COMPREHENSIVE METABOLIC 40538 CALCIUM 9.4 MG/DL 2010 Unknown COMPREHENSIVE METABOLIC 13373 POTASSIUM 4.6 MMOL/L 03/14 Unknown COMPREHENSIVE METABOLIC 07756 PROT TOT 7.0 GM/DL 2010 Unknown COMPREHENSIVE METABOLIC 69266 Glucose 107 MG/DL 2010 Unknown COMPREHENSIVE METABOLIC 69624 BICARB 28 MMOL/L 2010 Unknown COMPREHENSIVE METABOLIC 65265 ANION GAP 5 MEQ/L 2010 Unknown LIPID GROUP 62176 HDL TEST 39 MG/DL 03/14/2011 Unknown LIPID GROUP 56476 TRIG 157 MG/DL 03/14/2011 Unknown LIPID GROUP 59309 TEST LDL 66 MG/DL 03/14/2011 Unknown LIPID GROUP 49902 CHOL 136 MG/DL 03/14/2011 Unknown LIPID GROUP 08268 RCHOL/HDL 3.49 RATIO 03/14/2011 Unknow n GFR CALC 3691391 GFR AA >60 ML/MIN 11/11/2010 Unknown GFR CALC 9867614 GFR NON-AA >60 ML/MIN 11/11/2010 Unknown LIPID GROUP 17101 HDL TEST 39 MG/DL 11/11/2010 Unknown LIPID GROUP 01121 TRIG 212 MG/DL 11/11/2010 Unknown LIPID GROUP 74015 TEST LDL 67 MG/DL 11/11/2010 Unknown LIPID GROUP 30479 CHOL 148 MG/DL 11/11/2010 Unknown LIPID GROUP 74090 RCHOL/HDL 3.79 RATIO 11/11/2010 Unknow n COMPREHENSIVE METABOLIC 07930 AST 17 U/L 2010 Unknown COMPREHENSIVE METABOLIC 16140 ALT 21 IU/L 2010 Unknown COMPREHENSIVE METABOLIC 85460 BUN 16 MG/DL 2010 Unknown COMPREHENSIVE METABOLIC 28646 ALBUMIN 4.6 GM/DL 2010 Unknown COMPREHENSIVE METABOLIC 63522 CHLORIDE 106 MMOL/L 11/11 Unknown COMPREHENSIVE METABOLIC 69549 BILI TOT 0.5 MG/DL 2010 Unknown COMPREHENSIVE METABOLIC 31532 ALK PHOS 61 U/L 2010 Unknown COMPREHENSIVE METABOLIC 92620 SODIUM 139 MMOL/L 11/11 Unknown COMPREHENSIVE METABOLIC 18946 CREATININE 1.00 MG/DL 11/2010 Unknown COMPREHENSIVE METABOLIC 70785 CALCIUM 9.5 MG/DL 2010 Unknown COMPREHENSIVE METABOLIC 07194 POTASSIUM 4.5 MMOL/L 11/11 Unknown COMPREHENSIVE METABOLIC 19934 PROT TOT 6.9 GM/DL 2010 Unknown COMPREHENSIVE METABOLIC 03459 Glucose 111 MG/DL 2010 Unknown COMPREHENSIVE METABOLIC 25496 BICARB 26 MMOL/L 2010 Unknown COMPREHENSIVE METABOLIC 52283 ANION GAP 7 MEQ/L 2010 Unknown HEMOGLOBIN A1C (GLYCOSYLATED) 97289 A1C HPLC 73374-9 5.6 % 07/24/2010 Unknown GFR CALC 8732902 GFR AA >60 ML/MIN 07/23/2010 Unknown GFR CALC 6367044 GFR NON-AA >60 ML/MIN 07/23/2010 Unknown COMPREHENSIVE METABOLIC 25877 AST 19 U/L 2010 Unknown COMPREHENSIVE METABOLIC 07312 ALT 33 IU/L 2010 Unknown COMPREHENSIVE METABOLIC 41194 BUN 14 MG/DL 2010 Unknown COMPREHENSIVE METABOLIC 10774 ALBUMIN 4.7 GM/DL 2010 Unknown COMPREHENSIVE METABOLIC 27105 CHLORIDE 107 MMOL/L 07/23 Unknown COMPREHENSIVE METABOLIC 16715 BILI TOT 0.4 MG/DL 2010 Unknown COMPREHENSIVE METABOLIC 43724 ALK PHOS 80 U/L 2010 Unknown COMPREHENSIVE METABOLIC 54833 SODIUM 141 MMOL/L 07/23 Unknown COMPREHENSIVE METABOLIC 78634 CREATININE 0.97 MG/DL 07/05 Unknown COMPREHENSIVE METABOLIC 96277 CALCIUM 9.5 MG/DL 2010 Unknown COMPREHENSIVE METABOLIC 76975 POTASSIUM 4.1 MMOL/L 07/23 Unknown COMPREHENSIVE METABOLIC 83081 PROT TOT 6.8 GM/DL 2010 Unknown COMPREHENSIVE METABOLIC 43969 Glucose 120 MG/DL 2010 Unknown COMPREHENSIVE METABOLIC 45306 BICARB 26 MMOL/L 2010 Unknown COMPREHENSIVE METABOLIC 57238 ANION GAP 8 MEQ/L 2010 Unknown LIPID GROUP 87108 HDL TEST 41 MG/DL 07/23/2010 Unknown LIPID GROUP 03105 TRIG 175 MG/DL 07/23/2010 Unknown LIPID GROUP 25305 TEST LDL 72 MG/DL 07/23/2010 Unknown LIPID GROUP 85365 CHOL 148 MG/DL 07/23/2010 Unknown LIPID GROUP 80418 RCHOL/HDL 3.61 RATIO 07/23/2010 Unknow n PSA FREE AND TOTAL 53676|26126 % FREE PSA FOOTNOTE % 011 Unknown PSA FREE AND TOTAL 71108|96720 XPSA TOTAL 0.83 NG/ML 011 Unknown PSA FREE AND TOTAL 98592|90948 XPSA FREE 0.13 NG/ML 04/26/19 11 Unknown VITAMIN D TOTAL (25 HYDROXY) 19784 VIT D TOTL 26 NG/ML 04/22/2010 Unknown TESTOSTERONE TOTAL 68041 TESTOS TO 387 NG/DL 04/19/2010 Unknown GFR CALC 8640645 GFR AA >60 ML/MIN 04/19/2010 Unknown GFR CALC 3510241 GFR NON-AA >60 ML/MIN 04/19/2010 Unknown COMPLETE BLOOD COUNT 56708 WBC 7.0 10e9/L 04/19/19 11 Unknown COMPLETE BLOOD COUNT 25552 RBC 5.07 10e12/L 2010 Unknown COMPLETE BLOOD COUNT 93180 HGB 15.6 g/dL 1 Unknown COMPLETE BLOOD COUNT 67443 HCT DET 46.2 % 1 Unknown COMPLETE BLOOD COUNT 07552 MCV 91.1 fL 1 Unknown COMPLETE BLOOD COUNT 26859 MCH 30.8 pg 1 Unknown COMPLETE BLOOD COUNT 46634 MCHC 33.8 g/dL 1 Unknown COMPLETE BLOOD COUNT 29910 PLT 205 10e9/L 04/19/19 11 Unknown COMPLETE BLOOD COUNT 95286 MPV 11.1 fL 1 Unknown COMPLETE BLOOD COUNT 28776 SAMIR % 62.4 % 1 Unknown COMPLETE BLOOD COUNT 14345 LY % 28.5 % 1 Unknown COMPLETE BLOOD COUNT 33749 MON % 6.9 % 1 Unknown COMPLETE BLOOD COUNT 48899 EOS % 2.1 % 1 Unknown COMPLETE BLOOD COUNT 65102 BASO % 0.1 % 1 Unknown COMPLETE BLOOD COUNT 01655 RDW 13.4 % 1 Unknown COMPLETE BLOOD COUNT 85945 ABS SAMIR 4.37 10e9/L 011 Unknown COMPLETE BLOOD COUNT 38237 ABS LYMPH 2.00 10e9/L 011 Unknown COMPLETE BLOOD COUNT 02536 ABS MONO 0.48 10e9/L 011 Unknown COMPLETE BLOOD COUNT 63996 ABS EOS 0.15 10e9/L 011 Unknown COMPLETE BLOOD COUNT 13958 ABS BASO 0.01 10e9/L 011 Unknown COMPLETE BLOOD COUNT 80972 RDW-SD 43.8 fL 1 Unknown LIPID GROUP 56225 HDL TEST 39 MG/DL 04/19/2010 Unknown LIPID GROUP 94034 TRIG 244 MG/DL 04/19/2010 Unknown LIPID GROUP 36829 TEST LDL 168 MG/DL 04/19/2010 Unknown LIPID GROUP 99109 CHOL 256 MG/DL 04/19/2010 Unknown LIPID GROUP 84609 RCHOL/HDL 6.56 RATIO 04/19/2010 Unknow n COMPREHENSIVE METABOLIC 50068 AST 28 U/L 2010 Unknown COMPREHENSIVE METABOLIC 28692 ALT 46 IU/L 2010 Unknown COMPREHENSIVE METABOLIC 99731 BUN 14 MG/DL 2010 Unknown COMPREHENSIVE METABOLIC 50635 ALBUMIN 4.9 GM/DL 2010 Unknown COMPREHENSIVE METABOLIC 33468 CHLORIDE 104 MMOL/L 04/19 Unknown COMPREHENSIVE METABOLIC 45124 BILI TOT 0.8 MG/DL 2010 Unknown COMPREHENSIVE METABOLIC 88533 ALK PHOS 71 U/L 2010 Unknown COMPREHENSIVE METABOLIC 22350 SODIUM 139 MMOL/L 04/19 Unknown COMPREHENSIVE METABOLIC 22867 CREATININE 1.06 MG/DL 04/06 Unknown COMPREHENSIVE METABOLIC 83817 CALCIUM 9.9 MG/DL 2010 Unknown COMPREHENSIVE METABOLIC 14138 POTASSIUM 4.3 MMOL/L 04/19 Unknown COMPREHENSIVE METABOLIC 39268 PROT TOT 7.2 GM/DL 2010 Unknown COMPREHENSIVE METABOLIC 35764 Glucose 99 MG/DL 2010 Unknown COMPREHENSIVE METABOLIC 91904 BICARB 28 MMOL/L 2010 Unknown COMPREHENSIVE METABOLIC 63300 ANION GAP 7 MEQ/L 2010 Unknown FREE T4 89113 FREE T4 1.26 NG/DL 04/19/2010 Unknown Procedures Procedure Codes Date ROUTINE VENIPUNCTURE CPT-4: 50727 05/24/2019 COMPREHEN METABOLIC PANEL CPT-4: 79205 05/24/2019 A1C HPLC CPT-4: 11384 05/24/2019 FLU VACC PRSV FREE INC ANTIG 65 AND OLDER CPT-4: 77549 01/26/2019 FLU VACC PRSV FREE INC ANTIG 65 AND OLDER CPT-4: 03270 01/26/2019 ADMIN INFLUENZA VIRUS VAC CPT-4: G0008 01/26/2019 ROUTINE VENIPUNCTURE CPT-4: 74092 01/26/2019 COMPREHEN METABOLIC PANEL CPT-4: 05158 01/26/2019 COMPLETE CBC W/AUTO DIFF WBC CPT-4: 33972 01/26/2019 LIPID PANEL CPT-4: 52872 01/26/2019 A1C HPLC CPT-4: 35664 01/26/2019 ROUTINE VENIPUNCTURE CPT-4: 16344 09/30/2018 METABOLIC PANEL TOTAL CA CPT-4: 19793 09/30/2018 URINALYSIS NONAUTO W/O SCOPE CPT-4: 62363 08/19/2018 URINE CULTURE/ COLONY COUNT CPT-4: 55662 08/19/2018 MICROALBUMIN QUANTITATIVE CPT-4: 92109 08/19/2018 ROUTINE VENIPUNCTURE CPT-4: 50239 08/16/2018 ASSAY THYROID STIM HORMONE CPT-4: 85943 08/16/2018 COMPREHEN METABOLIC PANEL CPT-4: 14463 08/16/2018 COMPLETE CBC W/AUTO DIFF WBC CPT-4: 14416 08/16/2018 LIPID PANEL CPT-4: 37079 08/16/2018 A1C HPLC CPT-4: 54167 08/16/2018 LIPID PANEL CPT-4: 26877 05/05/2018 COMPREHEN METABOLIC PANEL CPT-4: 52162 05/05/2018 ROUTINE VENIPUNCTURE CPT-4: 84706 05/05/2018 A1C HPLC CPT-4: 38162 05/05/2018 COMPLETE CBC W/AUTO DIFF WBC CPT-4: 06558 05/05/2018 ASSAY THYROID STIM HORMONE CPT-4: 80590 05/05/2018 MICROALBUMIN QUANTITATIVE CPT-4: 65980 01/19/2018 PRESCRIP TRANSMIT VIA ERX SY CPT-4: G8553 01/19/2018 ROUTINE VENIPUNCTURE CPT-4: 99963 01/13/2018 COMPREHEN METABOLIC PANEL CPT-4: 48124 01/13/2018 A1C HPLC CPT-4: 36760 01/13/2018 LIPID PANEL CPT-4: 58538 01/13/2018 ASSAY OF PSA TOTAL CPT-4: 71545 01/13/2018 ASSAY THYROID STIM HORMONE CPT-4: 47437 01/13/2018 ROUTINE VENIPUNCTURE CPT-4: 87138 10/06/2017 COMPREHEN METABOLIC PANEL CPT-4: 80441 10/06/2017 COMPLETE CBC W/AUTO DIFF WBC CPT-4: 43734 10/06/2017 LIPID PANEL CPT-4: 34064 10/06/2017 A1C HPLC CPT-4: 16747 10/06/2017 VITAMIN B-12 CPT-4: 78673 10/06/2017 DESTRUCT PREMALG LESION (Cryosurgery) CPT-4: 82802 DESTRUCT PREMALG LES 2-14 CPT-4: 77693 04/23/2017 PRESCRIP TRANSMIT VIA ERX SY CPT-4: G8553 03/11/2017 ROUTINE VENIPUNCTURE CPT-4: 33239 03/05/2017 ASSAY OF FREE THYROXINE CPT-4: 19738 03/05/2017 ASSAY THYROID STIM HORMONE CPT-4: 70478 03/05/2017 COMPREHEN METABOLIC PANEL CPT-4: 60142 03/05/2017 COMPLETE CBC W/AUTO DIFF WBC CPT-4: 33558 03/05/2017 LIPID PANEL CPT-4: 93599 03/05/2017 A1C HPLC CPT-4: 97316 03/05/2017 ROUTINE VENIPUNCTURE CPT-4: 01065 06/16/2016 ASSAY OF FREE THYROXINE CPT-4: 04758 06/16/2016 ASSAY THYROID STIM HORMONE CPT-4: 97865 06/16/2016 COMPREHEN METABOLIC PANEL CPT-4: 20718 06/16/2016 COMPLETE CBC W/AUTO DIFF WBC CPT-4: 08757 06/16/2016 LIPID PANEL CPT-4: 48873 06/16/2016 A1C HPLC CPT-4: 53191 06/16/2016 ROUTINE VENIPUNCTURE CPT-4: 36392 03/06/2016 ASSAY OF FREE THYROXINE CPT-4: 27247 03/06/2016 ASSAY THYROID STIM HORMONE CPT-4: 34231 03/06/2016 COMPREHEN METABOLIC PANEL CPT-4: 90878 03/06/2016 COMPLETE CBC W/AUTO DIFF WBC CPT-4: 40133 03/06/2016 LIPID PANEL CPT-4: 96870 03/06/2016 A1C HPLC CPT-4: 94422 03/06/2016 PRESCRIP TRANSMIT VIA ERX SY CPT-4: G8553 09/10/2015 PNEUMOCOCCAL VACC 23 ROSANNE IM CPT-4: 27336 09/06/2015 ADMIN PNEUMOCOCCAL VACCINE CPT-4: G0009 09/06/2015 ROUTINE VENIPUNCTURE CPT-4: 37304 08/31/2015 COMPREHEN METABOLIC PANEL CPT-4: 76592 08/31/2015 COMPLETE CBC W/AUTO DIFF WBC CPT-4: 02776 08/31/2015 LIPID PANEL CPT-4: 78374 08/31/2015 ASSAY OF PSA TOTAL CPT-4: 97112 08/31/2015 A1C HPLC CPT-4: 88498 08/31/2015 ASSAY OF FREE THYROXINE CPT-4: 27634 08/31/2015 ASSAY THYROID STIM HORMONE CPT-4: 92531 08/31/2015 PRESCRIP TRANSMIT VIA ERX SY CPT-4: G8553 06/29/2015 FLU VACC PRSV FREE INC ANTIG 65 AND OLDER CPT-4: 67400 01/17/2015 PNEUMOCOCCAL VACC 13 ROSANNE IM CPT-4: 29754 01/17/2015 ADMIN INFLUENZA VIRUS VAC CPT-4: G0008 01/17/2015 ADMIN PNEUMOCOCCAL VACCINE CPT-4: G0009 01/17/2015 DESTRUCT PREMALG LESION (Cryosurgery) CPT-4: 03699 PRESCRIP TRANSMIT VIA ERX SY CPT-4: G8553 01/17/2015 ROUTINE VENIPUNCTURE CPT-4: 99288 01/12/2015 COMPREHEN METABOLIC PANEL CPT-4: 58231 01/12/2015 COMPLETE CBC W/AUTO DIFF WBC CPT-4: 61176 01/12/2015 LIPID PANEL CPT-4: 41537 01/12/2015 A1C HPLC CPT-4: 61168 01/12/2015 DESTRUCT PREMALG LESION (Cryosurgery) CPT-4: 73073 ROUTINE VENIPUNCTURE CPT-4: 91706 08/15/2014 COMPREHEN METABOLIC PANEL CPT-4: 76524 08/15/2014 COMPLETE CBC W/AUTO DIFF WBC CPT-4: 60266 08/15/2014 LIPID PANEL CPT-4: 19586 08/15/2014 A1C HPLC CPT-4: 29125 08/15/2014 ASSAY OF PSA TOTAL CPT-4: 20144 08/15/2014 ASSAY OF FREE THYROXINE CPT-4: 96014 08/15/2014 ASSAY THYROID STIM HORMONE CPT-4: 98524 08/15/2014 ROUTINE VENIPUNCTURE CPT-4: 04333 12/14/2013 ASSAY OF FREE THYROXINE CPT-4: 00873 12/14/2013 ASSAY THYROID STIM HORMONE CPT-4: 17995 12/14/2013 COMPREHEN METABOLIC PANEL CPT-4: 67839 12/14/2013 COMPLETE CBC W/AUTO DIFF WBC CPT-4: 99857 12/14/2013 LIPID PANEL CPT-4: 17115 12/14/2013 A1C HPLC CPT-4: 79936 12/14/2013 ROUTINE VENIPUNCTURE CPT-4: 73330 06/08/2013 ASSAY OF FREE THYROXINE CPT-4: 82299 06/08/2013 ASSAY THYROID STIM HORMONE CPT-4: 04997 06/08/2013 COMPREHEN METABOLIC PANEL CPT-4: 99155 06/08/2013 COMPLETE CBC W/AUTO DIFF WBC CPT-4: 28241 06/08/2013 LIPID PANEL CPT-4: 82262 06/08/2013 A1C HPLC CPT-4: 67970 06/08/2013 ROUTINE VENIPUNCTURE CPT-4: 51860 11/11/2012 COMPREHEN METABOLIC PANEL CPT-4: 71948 11/11/2012 COMPLETE CBC W/AUTO DIFF WBC CPT-4: 71879 11/11/2012 LIPID PANEL CPT-4: 56103 11/11/2012 A1C GLYCOSYLATED HEMOGLOBIN TEST CPT-4: 47591 013 ASSAY THYROID STIM HORMONE CPT-4: 06019 11/11/2012 ROUTINE VENIPUNCTURE CPT-4: 76923 05/04/2012 ASSAY OF FREE THYROXINE CPT-4: 09182 05/04/2012 ASSAY THYROID STIM HORMONE CPT-4: 55175 05/04/2012 COMPREHEN METABOLIC PANEL CPT-4: 59680 05/04/2012 COMPLETE CBC W/AUTO DIFF WBC CPT-4: 68030 05/04/2012 LIPID PANEL CPT-4: 79456 05/04/2012 DESTRUCT PREMALG LESION (Cryosurgery) CPT-4: 00113 DESTRUCT PREMALG LES 2-14 CPT-4: 72464 03/02/2012 ROUTINE VENIPUNCTURE CPT-4: 31719 10/29/2011 COMPREHEN METABOLIC PANEL CPT-4: 17970 10/29/2011 LIPID PANEL CPT-4: 13519 10/29/2011 A1C GLYCOSYLATED HEMOGLOBIN TEST CPT-4: 13398 012 ROUTINE VENIPUNCTURE CPT-4: 44509 07/29/2011 COMPREHEN METABOLIC PANEL CPT-4: 93787 07/29/2011 LIPID PANEL CPT-4: 32360 07/29/2011 A1C GLYCOSYLATED HEMOGLOBIN TEST CPT-4: 14168 012 ROUTINE VENIPUNCTURE CPT-4: 51380 03/14/2011 COMPREHEN METABOLIC PANEL CPT-4: 22483 03/14/2011 LIPID PANEL CPT-4: 44592 03/14/2011 A1C GLYCOSYLATED HEMOGLOBIN TEST CPT-4: 94586 011 ROUTINE VENIPUNCTURE CPT-4: 43777 11/11/2010 COMPREHEN METABOLIC PANEL CPT-4: 09733 11/11/2010 LIPID PANEL CPT-4: 44877 11/11/2010 URINE CULTURE/ COLONY COUNT CPT-4: 50934 11/11/2010 URINALYSIS NONAUTO W/O SCOPE CPT-4: 63773 10/29/2010 URINE CULTURE/ COLONY COUNT CPT-4: 50260 10/29/2010 LIPID PANEL CPT-4: 36590 07/23/2010 COMPREHEN METABOLIC PANEL CPT-4: 53949 07/23/2010 ROUTINE VENIPUNCTURE CPT-4: 45220 07/23/2010 ROUTINE VENIPUNCTURE CPT-4: 76877 04/26/2010 PSA FREE AND TOTAL CPT-4: 19910|51512 04/26/2010 OCCULT BLOOD FECES CPT-4: 34409 04/24/2010 ROUTINE VENIPUNCTURE CPT-4: 31814 04/19/2010 COMPLETE CBC W/AUTO DIFF WBC CPT-4: 63972 04/19/2010 COMPREHEN METABOLIC PANEL CPT-4: 01072 04/19/2010 LIPID PANEL CPT-4: 07231 04/19/2010 TESTOSTERONE TOTAL - MALE CPT-4: 26566 04/19/2010 ASSAY THYROID STIM HORMONE CPT-4: 84399 04/19/2010 ASSAY OF FREE THYROXINE CPT-4: 38724 04/19/2010 VITAMIN D TOTAL (25 HYDROXY) CPT-4: 84035 04/19/2010 Vital Signs Date Vital 01/31/2019 Blood Pressure 1: 146/80 Code: 8480-6 [...] 1: 112/70 Code: 8480-6 BMI: 28.9 Code: 78273-3 Heart Rate 1: 60 bpm Height: 6'3" Respiratory Rate: 20 bpm SpO2: 95% Tempera ture: 36.6 (C) / 97.9 (F) Weight: 231 lbs 01/19/2018 Blood Pressure 1: 150/82 Code: 8480-6 Heart Rate 1: 63 bpm Respiratory Rate: 18 bpm SpO2: 98% Temperature: 36.0 (C) / 96.8 (F) We ight: 225 lbs 10/15/2017 Blood Pressure 1: 126/82 Code: 8480-6 BMI: 27.9 Code: 97162-3 Heart Rate 1: 64 bpm Height: 6'3" Respiratory Rate: 20 bpm SpO2: 96% Tempera ture: 36.7 (C) / 98.1 (F) Weight: 223 lbs 04/23/2017 Blood Pressure 1: 136/74 Code: 8480-6 BMI: 28.7 Code: 99627-1 Heart Rate 1: 76 bpm Height: 6'3" Respiratory Rate: 20 bpm Temperature: 37 .0 (C) / 98.6 (F) Weight: 230 lbs 03/11/2017 Blood Pressure 1: 136/66 Code: 8480-6 BMI: 28.6 Code: 59140-1 Heart Rate 1: 60 bpm Height: 6'3" Respiratory Rate: 20 bpm Temperature: 36 .7 (C) / 98.1 (F) Weight: 229 lbs 07/09/2016 Blood Pressure 1: 132/80 Code: 8480-6 BMI: 27.7 Code: 42809-3 Heart Rate 1: 64 bpm Height: 6'3" Respiratory Rate: 20 bpm SpO2: 96% Tempera ture: 36.9 (C) / 98.4 (F) Weight: 222 lbs 03/10/2016 Blood Pressure 1: 134/78 Code: 8480-6 BMI: 28.5 Code: 10170-2 Heart Rate 1: 60 bpm Height: 6'3" Respiratory Rate: 20 bpm SpO2: 96% Tempera ture: 36.7 (C) / 98.1 (F) Weight: 228 lbs 09/12/2015 Blood Pressure 1: 136/78 Code: 8480-6 Heart Rate 1: 84 bpm Height: Respiratory Rate: 24 bpm SpO2: 97% Temperature: 36.4 (C) / 97.6 (F) We ight: 09/10/2015 Blood Pressure 1: 124/76 Code: 8480-6 BMI: 28.5 Code: 32551-4 Heart Rate 1: 76 bpm Height: 6'3" Respiratory Rate: 24 bpm SpO2: 97% Tempera ture: 36.4 (C) / 97.6 (F) Weight: 228 lbs 09/06/2015 Blood Pressure 1: 124 Code: 8480-6 BMI: 29.0 Code: 52603-8 Heart Rate 1: 66 bpm Height: 6'3" Respiratory Rate: 20 bpm SpO2: 97% Tempera ture: 36.4 (C) / 97.6 (F) Weight: 232 lbs 06/29/2015 Blood Pressure 1: 124 Code: 8480-6 Heart Rate 1: 88 bpm Height: Respiratory Rate: 20 bpm Temperature: 36.7 (C) / 98.1 (F) Weight: 01/17/2015 Blood Pressure 1: 124 Code: 8480-6 BMI: 27.7 Code: 46155-0 Heart Rate 1: 76 bpm Height: 6'3" Respiratory Rate: 20 bpm Temperature: 36 .6 (C) / 97.8 (F) Weight: 222 lbs 09/19/2014 Blood Pressure 1: 12880 Code: 8480-6 BMI: 27.4 Code: 58679-5 Heart Rate 1: 64 bpm Height: 6'3" Respiratory Rate: 20 bpm Temperature: 36 .4 (C) / 97.6 (F) Weight: 219 lbs 10/17/2013 Blood Pressure 1: 11670 Code: 8480-6 Heart Rate 1: 88 bpm Respiratory Rate: 20 bpm Temperature: 36.9 (C) / 98.4 (F) Weight: 220 lbs 09/23/2013 Blood Pressure 1: 12480 Code: 8480-6 BMI: 28.7 Code: 27659-8 Heart Rate 1: 76 bpm Height: 6'3" Respiratory Rate: 20 bpm Temperature: 36 .8 (C) / 98.2 (F) Weight: 230 lbs 07/22/2013 Blood Pressure 1: 128/70 Code: 8480-6 He art Rate 1: 78 bpm 06/20/2013 Blood Pressure 1: 144/86 Code: 8480-6 BMI: 28.7 Code: 74060-3 Heart Rate 1: 92 bpm Height: 6'3" Respiratory Rate: 20 bpm Temperature: 36 .4 (C) / 97.6 (F) Weight: 230 lbs 11/25/2012 Blood Pressure 1: 128/80 Code: 8480-6 BMI: 27.5 Code: 71130-6 Heart Rate 1: 92 bpm Height: 6'3" Respiratory Rate: 20 bpm Temperature: 36 .8 (C) / 98.3 (F) Weight: 220 lbs 08/27/2012 Blood Pressure 1: 142/80 Code: 8480-6 BMI: 27.7 Code: 50711-4 Heart Rate 1: 76 bpm Height: 6'3" Respiratory Rate: 20 bpm Temperature: 36 .8 (C) / 98.3 (F) Weight: 222 lbs 05/11/2012 Blood Pressure 1: 136/80 Code: 8480-6 BMI: 27.7 Code: 47333-2 Heart Rate 1: 76 bpm Height: 6'3" Respiratory Rate: 20 bpm Temperature: 36 .8 (C) / 98.3 (F) Weight: 222 lbs 03/02/2012 Blood Pressure 1: 136/70 Code: 8480-6 BMI: 28.0 Code: 01224-2 Heart Rate 1: 80 bpm Height: 6'3" Respiratory Rate: 20 bpm Temperature: 36 .6 (C) / 97.8 (F) Weight: 224 lbs 12/11/2011 Blood Pressure 1: 142/80 Code: 8480-6 BMI: 27.1 Code: 02418-3 Heart Rate 1: 84 bpm Height: 6'3" Respiratory Rate: 20 bpm Temperature: 36 .9 (C) / 98.4 (F) Weight: 217 lbs 08/14/2011 Blood Pressure 1: 130/82 Code: 8480-6 He art Rate 1: 64 bpm 07/29/2011 Blood Pressure 1: 132/64 Code: 8480-6 BMI: 26.7 Code: 24153-0 Heart Rate 1: 72 bpm Height: 6'3" [...] 1: 142/88 Code: 8480-6 BMI: 26.4 Code: 90064-4 Heart Rate 1: 80 bpm Height: 6'3" [...] Visit Reason For Visit Effective Dates Notes lab draw 05/24/2019 follow up 01/31/2019 lab [...] labs Encounters Encounter Performer Location Codes Date ([id number]) NURSE/OUTPATIENT VISIT EST Diagnosis: Type 2 diabetes mellitus without complications[ICD10: E11.9] Diagnosis: Essential (primary) hypertension[ICD10: I10] Diagnosis: Mixed hyperlipidemia[ICD10: E78.2] Najma ROWAN [employer] CPT-4: 25567 05/24/2019 ([id number]) OFFICE/OUTPATIENT VISIT EST Diagnosis: Essential (primary) hypertension[ICD10: I10] Diagnosis: Type 2 diabetes mellitus without complications[ICD10: E11.9] Diagnosis: Mixed hyperlipidemia[ICD10: E78.2] Najma ROWAN [employer] CPT-4: 67850 01/31/2019 ([id number]) NURSE/OUTPATIENT VISIT EST Diagnosis: Mixed hyperlipidemia[ICD10: E78.2] Diagnosis: Type 2 diabetes mellitus without complications[ICD10: E11.9] Diagnosis: Essential (primary) hypertension[ICD10: I10] Diagnosis: Chronic kidney disease, unspecified[ICD10: N18.9] Najma MCARTHUR SSN [employer] CPT-4: 79039 01/26/2019 ([id number]) NURSE/OUTPATIENT VISIT EST Diagnosis: Chronic kidney disease, unspecified[ICD10: N18.9] Diagnosis: Essential (primary) hypertension[ICD10: I10] Najma OG DO [place] CPT-4: 90455 09/30/2018 ([id number]) OFFICE/OUTPATIENT VISIT EST Diagnosis: Essential (primary) hypertension[ICD10: I10] Diagnosis: Type 2 diabetes mellitus without complications[ICD10: E11.9] Diagnosis: Mixed hyperlipidemia[ICD10: E78.2] Diagnosis: Unspecified kidney failure[ICD10: N19] Najma OG [employer] CPT-4: 61703 08/19/2018 ([id number]) NURSE/OUTPATIENT VISIT EST Diagnosis: Essential (primary) hypertension[ICD10: I10] Diagnosis: Type 1 diabetes mellitus with unspecified complications[ICD10: E10.8] Diagnosis: Mixed hyperlipidemia[ICD10: E78.2] Najma SAMSONYododoBIJAN [employer] CPT-4: 58618 08/16/2018 ([id number]) OFFICE/OUTPATIENT VISIT EST Diagnosis: Essential (primary) hypertension[ICD10: I10] Diagnosis: Type 2 diabetes mellitus without complications[ICD10: E11.9] Diagnosis: Mixed hyperlipidemia[ICD10: E78.2] Najma SAMSONTokalas CPT-4: 26746 05/10/2018 ([id number]) NURSE/OUTPATIENT VISIT EST Diagnosis: Essential (primary) hypertension[ICD10: I10] Diagnosis: Mixed hyperlipidemia[ICD10: E78.2] Diagnosis: Type 1 diabetes mellitus with unspecified complications[ICD10: E10.8] Najma OG [employer] CPT-4: 19378 05/05/2018 ([id number]) OFFICE/OUTPATIENT VISIT EST Diagnosis: Type 2 diabetes mellitus without complications[ICD10: E11.9] Diagnosis: Mixed hyperlipidemia[ICD10: E78.2] Diagnosis: Nicotine dependence, unspecified, uncomplicated[ICD10: F17.200] Diagnosis: Essential (primary) hypertension[ICD10: I10] Najma OG [employer] CPT-4: 93218 01/19/2018 ([id number]) NURSE/OUTPATIENT VISIT EST Diagnosis: Type 1 diabetes mellitus with unspecified complications[ICD10: E10.8] Diagnosis: Essential (primary) hypertension[ICD10: I10] Diagnosis: Male erectile disorder[ICD10: F52.21] Diagnosis: Encounter for screening for malignant neoplasm of prostate[ICD10: Z12.5] Najma OG DO [facility] CPT-4: 78338 01/13/2018 ([id number]) OFFICE/OUTPATIENT VISIT EST Diagnosis: Type 2 diabetes mellitus without complications[ICD10: E11.9] Diagnosis: Essential (primary) hypertension[ICD10: I10] Diagnosis: Mixed hyperlipidemia[ICD10: E78.2] Najma OG [facility] CPT-4: 05977 10/15/2017 ([id number]) NURSE/OUTPATIENT VISIT EST Diagnosis: Type 2 diabetes mellitus without complications[ICD10: E11.9] Diagnosis: Mixed hyperlipidemia[ICD10: E78.2] Diagnosis: Essential (primary) hypertension[ICD10: I10] Diagnosis: Glossitis[ICD10: K14.0] Najma THAKKAR [facility] CPT-4: 26199 10/06/2017 ([id number]) OFFICE/OUTPATIENT VISIT EST Diagnosis: Type 2 diabetes mellitus without complications[ICD10: E11.9] Diagnosis: Mixed hyperlipidemia[ICD10: E78.2] Diagnosis: Essential (primary) hypertension[ICD10: I10] Najma OG [facility] CPT-4: 21308 03/11/2017 ([id number]) OFFICE/OUTPATIENT VISIT EST Diagnosis: Type 1 diabetes mellitus with unspecified complications[ICD10: E10.8] Diagnosis: Mixed hyperlipidemia[ICD10: E78.2] Diagnosis: Essential (primary) hypertension[ICD10: I10] Diagnosis: Other fatigue[ICD10: R53.83] Najma OG [facility] CPT-4: 71653 03/05/2017 ([id number]) OFFICE/OUTPATIENT VISIT EST Diagnosis: Type 2 diabetes mellitus without complications[ICD10: E11.9] Diagnosis: Mixed hyperlipidemia[ICD10: E78.2] Diagnosis: Essential (primary) hypertension[ICD10: I10] Diagnosis: Nicotine dependence, unspecified, uncomplicated[ICD10: F17.200] Najma OG [facility] CPT-4: 14505 07/09/2016 ([id number]) OFFICE/OUTPATIENT VISIT EST Diagnosis: Type 1 diabetes mellitus with unspecified complications[ICD10: E10.8] Diagnosis: Mixed hyperlipidemia[ICD10: E78.2] Diagnosis: Essential (primary) hypertension[ICD10: I10] Najma OG DO [facility] CPT-4: 10968 06/16/2016 ([id number]) OFFICE/OUTPATIENT VISIT EST Diagnosis: Type 2 diabetes mellitus without complications[ICD10: E11.9] Diagnosis: Mixed hyperlipidemia[ICD10: E78.2] Diagnosis: Essential (primary) hypertension[ICD10: I10] Najma OG [employer] CPT-4: 01125 03/10/2016 ([id number]) OFFICE/OUTPATIENT VISIT EST Diagnosis: Type 1 diabetes mellitus with unspecified complications[ICD10: E10.8] Diagnosis: Mixed hyperlipidemia[ICD10: E78.2] Diagnosis: Essential (primary) hypertension[ICD10: I10] Najma OG [employer] CPT-4: 42109 03/06/2016 ([id number]) OFFICE/OUTPATIENT VISIT EST Diagnosis: Bitten or stung by nonvenomous insect and other nonvenomous arthropods, subsequent encounter[ICD10: W57.XXXD] Diagnosis: Insect bite (nonvenomous), right thigh, subsequent encounter[ICD10: S70.361D] Barbara OG [facility] CPT-4: 74586 11/2015 ([id number]) OFFICE/OUTPATIENT VISIT EST Diagnosis: Bitten or stung by nonvenomous insect and other nonvenomous arthropods, initial encounter[ICD10: W57.XXXA] Diagnosis: Insect bite (nonvenomous), right thigh, initial encounter[ICD10: S70.361A] Barbara OG [facility] CPT-4: 06106 09/2015 ([id number]) OFFICE/OUTPATIENT VISIT EST Diagnosis: Mixed hyperlipidemia[ICD10: E78.2] Diagnosis: Essential (primary) hypertension[ICD10: I10] Diagnosis: Type 2 diabetes mellitus without complications[ICD10: E11.9] Diagnosis: Encounter for immunization[ICD10: Z23] Diagnosis: Encounter for screening for malignant neoplasm of colon[ICD10: Z12.11] Diagnosis: Abnormal weight gain[ICD10: R63.5] Barbara GODINEZ SSN [employer] CPT-4: 11600 09/06/2015 ([id number]) OFFICE/OUTPATIENT VISIT EST Diagnosis: Type 2 diabetes mellitus without complications[ICD10: E11.9] Diagnosis: Mixed hyperlipidemia[ICD10: E78.2] Diagnosis: Essential (primary) hypertension[ICD10: I10] Diagnosis: Encounter for screening for malignant neoplasm of prostate[ICD10: Z12.5] Diagnosis: Other fatigue[ICD10: R53.83] Najma Grey [employer] CPT-4: 38080 08/31/2015 OFFICE/OUTPATIENT VISIT EST Diagnosis: Diarrhea, unspecified[ICD10: R19.7] Henrietta MCCOY SSN [employer] CPT-4: 51014 06/29/2015 OFFICE/OUTPATIENT VISIT EST Diagnosis: PNEUMOCOCCAL VACCINE[ICD10: Z23] Diagnosis: FLU VACCINE[ICD10: Z23] Diagnosis: Essential (primary) hypertension[ICD10: I10] Diagnosis: Mixed hyperlipidemia[ICD10: E78.2] Diagnosis: Type 1 diabetes mellitus with unspecified complications[ICD10: E10.8] Diagnosis: Actinic keratosis[ICD10: L57.0] Najma MCARTHUR SSN [employer] CPT-4: 16881 01/17/2015 ([id number]) OFFICE/OUTPATIENT VISIT EST Diagnosis: Type 2 diabetes mellitus without complications[ICD10: E11.9] Diagnosis: Impaired fasting glucose[ICD10: R73.01] Diagnosis: Mixed hyperlipidemia[ICD10: E78.2] Diagnosis: Essential (primary) hypertension[ICD10: I10] Najma Grey [employer] CPT-4: 29145 01/12/2015 ([id number]) OFFICE/OUTPATIENT VISIT EST Diagnosis: - I - HYPERLIPIDEMIA NEC/NOS[ICD9: 272.4] Diagnosis: HYPERTENSION[ICD9: 401.9] Diagnosis: DM W/O COMPLICATION TYPE II[ICD9: 250.00] Diagnosis: ACTINIC KERATOSIS[ICD9: 702.0] Najma OG [facility] CPT-4: 92535 09/19/2014 ([id number]) OFFICE/OUTPATIENT VISIT EST Diagnosis: HYPERLIPIDEMIA NEC/NOS[ICD9: 272.4] Diagnosis: HYPERTENSION[ICD9: 401.9] Diagnosis: IMPAIRED FASTING GLUCOSE[ICD9: 790.21] Diagnosis: MALAISE AND FATIGUE[ICD9: 780.79] Najma OG [facility] CPT-4: 25097 08/15/2014 ([id number]) OFFICE/OUTPATIENT VISIT EST Diagnosis: HYPERLIPIDEMIA NEC/NOS[ICD9: 272.4] Diagnosis: HYPERTENSION[ICD9: 401.9] Diagnosis: IMPAIRED FASTING GLUCOSE[ICD9: 790.21] Najma HAQUE [employer] O[employer] CPT-4: 62010 12/14/2013 ([id number]) OFFICE/OUTPATIENT VISIT EST Diagnosis: Post herpetic neuralgia[ICD9: 053.19] Najma OG [facility] CPT-4: 24406 10/17/2013 OFFICE/OUTPATIENT VISIT EST Diagnosis: Shingles[ICD9: 053.9] Diagnosis: Post herpetic neuralgia[ICD9: 053.19] Jeanie Briceño CLAUDE OG [facility] CPT-4: 18667 09/23/2013 ([id number]) OFFICE/OUTPATIENT VISIT EST Diagnosis: HYPERTENSION[ICD9: 401.9] Diagnosis: HYPERLIPIDEMIA NEC/NOS[ICD9: 272.4] Diagnosis: IMPAIRED FASTING GLUCOSE[ICD9: 790.21] Najmaanaid OG [employer] CPT-4: 77817 06/20/2013 ([id number]) OFFICE/OUTPATIENT VISIT EST Diagnosis: HYPERLIPIDEMIA NEC/NOS[ICD9: 272.4] Diagnosis: MALAISE AND FATIGUE[ICD9: 780.79] Diagnosis: ROUTINE MEDICAL EXAM[ICD9: V70.0] Diagnosis: HYPERTENSION[ICD9: 401.9] Diagnosis: IMPAIRED FASTING GLUCOSE[ICD9: 790.21] Najma CHAPMAN AmeenaMatilde KAHLIL [facility] CPT-4: 22165 06/08/2013 ([id number]) OFFICE/OUTPATIENT VISIT EST Diagnosis: HYPERLIPIDEMIA NEC/NOS[ICD9: 272.4] Diagnosis: HYPERTENSION[ICD9: 401.9] Diagnosis: IMPAIRED FASTING GLUCOSE[ICD9: 790.21] Diagnosis: DIARRHEA[ICD9: 787.91] Najma MCARTHUR AmeenaMatilde BRITTNI Stallings [employer] CPT-4: 64872 11/25/2012 ([id number]) OFFICE/OUTPATIENT VISIT EST Diagnosis: HYPERLIPIDEMIA NEC/NOS[ICD9: 272.4] Diagnosis: HYPERTENSION[ICD9: 401.9] Diagnosis: IMPAIRED FASTING GLUCOSE[ICD9: 790.21] Diagnosis: MALAISE AND FATIGUE[ICD9: 780.79] Najma Jenkins AmeenaMatilde KAHLIL [facility] CPT-4: 36064 11/11/2012 OFFICE/OUTPATIENT VISIT EST Diagnosis: Fungal dermatitis[ICD9: 111.9] Diagnosis: Dry skin dermatitis[ICD9: 692.89] Henrietta Jenkins AmeenaMatilde KAHLIL [facility] CPT-4: 22177 08/27/2012 ([id number]) OFFICE/OUTPATIENT VISIT EST Diagnosis: HYPERTENSION[ICD9: 401.9] Diagnosis: HYPERLIPIDEMIA NEC/NOS[ICD9: 272.4] Najma MCCOY AmeenaMatilde KAHLIL [facility] CPT-4: 64084 05/11/2012 ([id number]) OFFICE/OUTPATIENT VISIT EST Diagnosis: HYPERLIPIDEMIA NEC/NOS[ICD9: 272.4] Diagnosis: HYPERTENSION[ICD9: 401.9] Diagnosis: ROUTINE MEDICAL EXAM[ICD9: V70.0] Najma Jenkins A[employer]ena[employer]ilde [employer] CPT-4: 07729 05/04/2012 ([id number]) OFFICE/OUTPATIENT VISIT EST Diagnosis: HYPERTENSION[ICD9: 401.9] Diagnosis: HYPERLIPIDEMIA NEC/NOS[ICD9: 272.4] Diagnosis: IMPAIRED FASTING GLUCOSE[ICD9: 790.21] Najma CHAPMAN SMatilde ORENDER DO [facility] CPT-4: 78942 12/11/2011 ([id number]) OFFICE/OUTPATIENT VISIT EST Diagnosis: HYPERLIPIDEMIA NEC/NOS[ICD9: 272.4] Diagnosis: HYPERTENSION[ICD9: 401.9] Diagnosis: IMPAIRED FASTING GLUCOSE[ICD9: 790.21] Najma CHAPMAN SMatilde ORENDER DO [facility] CPT-4: 46946 10/29/2011 ([id number]) OFFICE/OUTPATIENT VISIT EST Diagnosis: HYPERTENSION[ICD9: 401.9] Najma SAMSON NDER DO [facility] CPT-4: 71602 08/14/2011 ([id number]) OFFICE/OUTPATIENT VISIT EST Diagnosis: HYPERTENSION[ICD9: 401.9] Diagnosis: IMPAIRED FASTING GLUCOSE[ICD9: 790.21] Najma CHAPMAN SMatilde ORENDER DO [facility] CPT-4: 31153 07/29/2011 ([id number]) OFFICE/OUTPATIENT VISIT EST Diagnosis: HYPERTENSION[ICD9: 401.9] Najma SAMSON NDER DO [facility] CPT-4: 32084 07/23/2011 ([id number]) OFFICE/OUTPATIENT VISIT EST Diagnosis: HYPERTENSION[ICD9: 401.9] Najma SAMSON NDER DO [facility] CPT-4: 52442 06/24/2011 OFFICE/OUTPATIENT VISIT EST Diagnosis: HYPERTENSION[ICD9: 401.9] Najma SAMSON NDER DO [facility] CPT-4: 69628 05/20/2011 OFFICE/OUTPATIENT VISIT EST Diagnosis: HYPERTENSION[ICD9: 401.9] Najma SAMSON NDER DO [facility] CPT-4: 51276 04/15/2011 OFFICE/OUTPATIENT VISIT EST Diagnosis: HYPERLIPIDEMIA NEC/NOS[ICD9: 272.4] Diagnosis: IMPAIRED FASTING GLUCOSE[ICD9: 790.21] Najma CHAPMAN SMatilde ORENDER DO [facility] CPT-4: 16780 03/18/2011 ([id number]) OFFICE/OUTPATIENT VISIT EST Najma CHAPMAN SMatilde ORENDER DO [facility] CPT-4: 04579 07/30/2010 ([id number]) PREV VISIT, EST, AGE 40-64 Najma ABBOTTDELTA SOLOMONGRETCHEN OG DO [place] CPT-4: 75155 04/24/2010 Plan of Care Planned Activity Notes [...] : E78.2 01/31/2019 Appointment: Najma Og WPtel: [address] [place] [address] [place] FOLLOW UP 01/31/2019 Appointment: Najma Og WPtel: [address] [place] [address] [place] LAB 01/26/2019 Appointment: Najma Og WPtel: [address] [place] [address] [place] LAB 09/30/2018 Visit Diagnosis Plan: Unspecified [...] : E11.9 08/19/2018 Appointment: Najma Og WPtel: [address] [place] [address] US FOLLOW UP 08/19/2018 Appointment: Najma Og WPtel: [address] [place], [place] [phone] [place] LAB 08/16/2018 Visit Diagnosis Plan: Essential [...] E78.2 05/10/2018 Appointment: Najma Og WPtel: [address] [place] [address] FOLLOW UP 05/10/2018 Patient Education: Low Back Pain Exercises: Illustration Completed 05/10/2018 Patient Education: Low Back Pain Exercises Completed 05/10/2018 Appointment: Najma Ogtel: [address] [place], [place] [phone] [place] LAB 05/05/2018 Visit Diagnosis Plan: Type [...] 272.4 ICD-10 : E78.2 01/19/2018 Appointment: Najma Ogtel: [address] [place], [place] [phone] FOLLOW UP 01/19/2018 Patient Education: Patient Medication Summary Completed 01/19/2018 Appointment: Najma Og WPtel: [address] [place], [place] [phone] [place] LAB 01/13/2018 Patient Education: Patient Medication [...] : I10 10/15/2017 Appointment: Najma Og WPtel: [address] [place], [place] [phone] FOLLOW UP 10/15/2017 Patient Education: Patient Medication Summary Completed 10/15/2017 Appointment: Najma Og WPtel: [address] [place], [place] [phone] LAB 10/06/2017 Patient Education: Patient Medication Summary Completed 10/06/2017 Visit Diagnosis Plan: Actinic keratosis Discussion: Cr yotherapy as above ICD-9 : 702.0 ICD-10 : L57.0 04/23/2017 Appointment: Najma Og WPtel: [address] [place], [place] [phone] OFFICE SURGERY 04/23/2017 Patient Education: Patient Medication [...] E78.2 03/11/2017 Appointment: Najma Og WPtel: [address] [place], [place] [phone] [place] FOLLOW UP 03/11/2017 Patient Education: Patient Medication Summary Completed 03/11/2017 Appointment: Najma Og WPtel: [address] [place], [place] [phone] [place] LAB 03/05/2017 Patient Education: Patient Medication [...] : F17.200 07/09/2016 Appointment: Najma Og WPtel: [address] [place], [place] [phone] [place] 07/08 lm ~sl 07/09 confirmed~sl FOLLOW UP 08/2016 Patient Education: Patient Medication Summary Completed 07/09/2016 Appointment: Najma Og WPtel: [address] [place], [place] [phone] [place] LAB 06/16/2016 Patient Education: Patient Medication Summary Completed 06/16/2016 Visit Plan: Lab discussed Accuchecks mariebl ly Lifestyle change for 3mos then check CMP, HbA1C in 3mos Has had flu and pneumonia shot 03/10/2016 Appointment: Najma Og WPtel: [address] [place], [place] [phone] [place] 03/06 confirmed `sl FOLLOW UP 03/10/2016 Patient Education: Patient Medication Summary Completed 03/10/2016 Appointment: Najma Og WPtel: [address] [place], [place] [phone] [place] LAB 03/06/2016 Patient Education: Patient Medication Summary Completed 03/06/2016 Referral: Donavon Keller WPtel: [address] [place], [place] [phone] [place] Referral Completed 10/22/2015 Visit Plan: Tick bite area looks much be tter Continue current rxs and close monitoring Follow up if any new symptoms or worsening appearance 09/12/2015 Appointment: Barbara Brower [address] [place] [address] 09/10 confirmed~sl FOLLOW UP 09/12/2015 Patient Education: Patient Medication Summary Completed 09/12/2015 Visit Plan: Cover as above 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 topical steroids to calm down the inflammation(suspect most of redness is due to histamine response vs infection) Monitor closely Follow up in 2 days to recheck 09/10/2015 Appointment: Barbara Brower [address] [place], [place] [id number] ACUTE ILLNESS 09/10/2015 Patient Education: [...] shingles vaccine 09/06/2015 Appointment: Barbara Brower [address] [id number] FOLLOW UP 09/06/2015 Patient Education: Patient Medication Summary Completed 09/06/2015 Care Plan: Referral Order SNOMED-CT : [id number] Pending 09/06/2015 Appointment: Najma Og WPtel: [address] [place], [place] [phone] LAB 08/31/2015 Patient Education: Patient Medication Summary [...] of worsening, go to UC/ER. 06/29/2015 Appointment: Shruthi Lubincy WPtel: [address] [place], [place] [phone] ACUTE ILLNESS 06/29/2015 Patient Education: Patient Medication Summary Completed 06/29/2015 Visit Plan: Lab discussed Will keep meds the same Discussed diet/exercise at length Cryotherapy as above to AKs of arms Flu and Prevnar 13 given Trial of revatio per patient request for ED--warned of no nitrates Recheck 4mos 01/17/2015 Appointment: Najma Og WPtel: [address] [place], [place] [phone] 01/16 confirmed~sl FOLLOW UP 01/17/2015 Patient Education: Patient Medication Summary Completed 01/17/2015 Appointment: Najma Og WPtel: [address] [place], [place] [phone] [place] LAB 01/12/2015 Patient Education: Patient Medication Summary Completed 01/12/2015 Visit Plan: Lab discussed Start accuchec ks daily Cryotherapy as above 09/19/2014 Appointment: Najma Og WPtel: [address] [place], [place] [phone] [place] 09/18 confirmed -mf FOLLOW UP 09/19/2014 Patient Education: Patient Medication Summary Completed 09/19/2014 Appointment: Najma Og WPtel: [address] [place], [place] [phone] [place] LAB 08/15/2014 Patient Education: Patient Medication Summary Completed 08/15/2014 Appointment: Najma Og WPtel: [address] [place], [place] [phone] ACUTE ILLNESS 12/14/2013 Patient Education: Patient Medication Summary Completed 12/14/2013 Visit Plan: Patient using tylenol prn pa in Discussed possible shingles shot for booster in 9-12mos 10/17/2013 Appointment: Najma Og WPtel: [address] [place], [place] [phone] US FOLLOW UP 10/17/2013 Patient Education: Patient Medication Summary Completed 10/17/2013 Appointment: Jeanie Briceño WPtel: [address] [place] [address] ACUTE ILLNESS 09/23/2013 Patient Education: Patient Medication Summary Completed 09/23/2013 Appointment: Najma Og WPtel: [address] [place] [address] BP CHECK 07/22/2013 Patient Education: Patient Medication Summary Completed 07/22/2013 Visit Plan: Lab discussed Discussed swit arun amlodopine to beta slim to see if helps with tremor BP check in 1mo 06/20/2013 Appointment: Najma Og WPtel: [address] [place] [address] 06/17 no answer FOLLOW UP 06/20/2013 Patient Education: Patient Medication Summary Completed 06/20/2013 Appointment: Najma Og WPtel: [address] [place], [place] [phone] 06/08/2013 Patient Education: Patient Medication Summary Completed 06/08/2013 Visit Plan: BRAT diet and yogurt and gat orade Lab discussed Continue current meds Spot checks on BS 11/25/2012 Appointment: Najma Og WPtel: [address] [place], [place] [phone] 11/24 FOLLOW UP 11/25/2012 Patient Education: Patient Medication Summary Completed 11/25/2012 Appointment: Najma Og WPtel: [address] [place], [place] [phone] LAB 11/11/2012 Patient Education: Patient Medication Summary Completed 11/11/2012 Appointment: Henrietta Lubin WPtel: [address] [place], [place] [phone] [place] WORK IN 08/27/2012 Patient Education: Patient Medication Summary Completed 08/27/2012 Visit Plan: Pt going to get new home BP moniter Continue crestor and restart fish oil and will check fasting lab in 6mos Lab results discussed 05/11/2012 Appointment: Najma Ogtel: [address] [place], [place] [phone] 05/10 FOLLOW UP 05/11/2012 Patient Education: Patient Medication Summary Completed 05/11/2012 Appointment: Najma Og WPtel: [address] [place], [place] [phone] [place] LAB 05/04/2012 Patient Education: Patient Medication Summary Completed 05/04/2012 Visit Plan: 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 and forehead 03/02/2012 Appointment: Najma Og WPtel: [address] [place], [place] [phone] 03/01 OFFICE SURGERY 03/02/2012 Patient Education: Patient Medication Summary Completed 03/02/2012 Visit Plan: Labs discussed--recheck lab end of Feb/mar Continue current meds and continue to moniter BS daily and BP 1-2 times a week Plan on cryotherapy this fall so can wear longsleeves after procedure See urology 12/11/2011 Appointment: Najma Og WPtel: [address] [place], [place] [phone] FOLLOW UP 12/11/2011 Patient Education: Patient Medication Summary Completed 12/11/2011 Appointment: Najma Og WPtel: [address] [place], [place] [phone] LAB 10/29/2011 Patient Education: Patient Medication Summary Completed 10/29/2011 Appointment: Najma Og WPtel: [address] [place], [place] [phone] BP CHECK 08/14/2011 Patient Education: Patient Medication Summary Completed 08/14/2011 Appointment: Najma Og WPtel: [address] [place], [place] [phone] ACUTE ILLNESS 07/29/2011 Patient Education: Patient Medication Summary Completed 07/29/2011 Appointment: Najma Og WPtel: [address] [place], [place] [phone] [place] BP CHECK 07/23/2011 Patient Education: Patient Medication Summary Completed 07/23/2011 Appointment: Najma Og WPtel: [address] [place], [place] [phone] [place] BP CHECK 06/24/2011 Patient Education: Patient Medication Summary Completed 06/24/2011 Appointment: Najma Og WPtel: [address] [place], [place] [phone] [place] BP CHECK 05/20/2011 Patient Education: Patient Medication Summary Completed 05/20/2011 Appointment: Najma Og WPtel: [address] [place], [place] [phone] [place] BP CHECK 04/29/2011 Patient Education: Patient Medication Summary Completed 04/29/2011 Appointment: Najma Og WPtel: [address] [place], [place] [phone] [place] BP CHECK 04/15/2011 Patient Education: Patient Medication Summary Completed 04/15/2011 Visit Plan: Continue current meds Add fi sh oil 1gm daily Glucometer given to use for accuchecks prn 03/18/2011 Appointment: Najma Og WPtel: [address] [place], [place] [phone] [place] FOLLOW UP 03/18/2011 Patient Education: Patient Medication Summary Completed 03/18/2011 Appointment: Najma Og WPtel: [address] [place], [place] [phone] [place] LAB 03/14/2011 Patient Education: Patient Medication Summary Completed 03/14/2011 Appointment: Najma Og WPtel: [address] [place], [place] [phone] [place] LAB 11/11/2010 Appointment: Najma Og WPtel: [address] [place], [place] [phone] [place] UA 11/11/2010 Patient Education: Patient Medication Summary Completed 11/11/2010 Appointment: Najma Og WPtel: [address] [place] [phone] [place] LAB 10/29/2010 Patient Education: Patient Medication Summary Completed 10/29/2010 Appointment: Najma Og WPtel: [address] [place] [phone] [place] FOLLOW UP 07/30/2010 Patient Education: Patient Medication Summary Completed 07/30/2010 Appointment: Najma Og WPtel: [address] [place], [place] [phone] [place] LAB 07/23/2010 Patient Education: Patient Medication Summary Completed 07/23/2010 Appointment: Najma Og WPtel: [address] [place], [place] [phone] [place] LAB 04/26/2010 Patient Education: Patient Medication Summary Completed 04/26/2010 Visit Plan: Add PSA to lab Restart Crest or at 10mg daily Trial of Wellbutrin to aid in smoking cessation Check Lipids and LFTs in 3mos 04/24/2010 Appointment: Najma Og WPtel: [address] [place], [place] [phone] [place] FOLLOW UP 04/24/2010 Patient Education: Patient Medication Summary Completed 04/24/2010 Appointment: Najma Og WPtel: [address] [place], [place] [phone] [place] LAB 04/19/2010 Patient Education: Patient Medication Summary Completed 04/19/2010 Referral: [id number] [place] Ref[facility] Completed Instructions Comment . Lab [...]
--- OUTSIDE RECORDS SUMMARY | 2019-10-14 22:51 | XMS REPORT | CCD ---
Author Author Inocente Og D.O. 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 PP Unavailable CCM Unavailable Summary Purpose Interface Exchange Insurance Providers Payer name Policy type / Coverage type Covered democrat ID Effective Begin Date Effective End Date [employer] MEDICARE Medicare Part B [id number] Unknown [facility] Medicare Part B [id number] Un known Family history Father Diagnosis Age At Onset Diabetes mellitus Type 2 Unknown Myocardial infarction Unknown Brother Diagnosis Age At Onset Diabetes mellitus Type 2 Unknown Mother Diagnosis Age At Onset Osteoarthritis Unknown Cerebrovascular disease Unknown Social History Social History Element Codes Description Effective Dates Tobacco history SNOMED CT: 278205469 Never smoker 12/21/2014 Marital status Unknown 07/30/2010 [...] Instructions fenofibrate micronized 134 mg capsule RxNorm: 728538 1 Capsule(s) Oral QD for triglycerides 04/14/2019 07/13/2019 Active amlodipine 5 mg tablet RxNorm: 057135 TAKE 1 TABLET BY MOUTH ON CE DAILY 03/22/2019 06/19/2019 Active metformin ER 500 mg tablet,extended release 24 hr RxNorm: 86 0975 TAKE 1 TABLET BY MOUTH ONCE DAILY 03/15/2019 No Stop Date Active propranolol ER 80 mg capsule,24 hr,extended release RxNorm: 999576 TAKE 1 CAPSULE BY MOUTH ONCE DAILY 03/15/2019 No Stop Date Active amlodipine 5 mg tablet RxNorm: 779310 1 Tablet(s) PO QD 12/27/2018 Inactive fenofibrate micronized 134 mg capsule RxNorm: 848345 TA KE 1 CAPSULE BY MOUTH ONCE DAILY FOR TRIGLYCERIDES 10/11/2018 04/13/2019 Inactive amlodipine 5 mg tablet RxNorm: 259573 1 Tablet(s) PO QD 09/30/2018 Inactive metformin ER 500 mg tablet,extended release 24 hr RxNorm: 86 0975 TAKE 1 TABLET BY MOUTH ONCE DAILY 09/21/2018 03/14/2019 Inactive propranolol ER 80 mg capsule,24 hr,extended release RxNorm: 527187 TAKE 1 CAPSULE BY MOUTH ONCE DAILY 09/21/2018 03/14/2019 Inactive amlodipine 5 mg tablet RxNorm: 417139 1 Tablet(s) PO QD 08/25/2018 Inactive amlodipine 5 mg tablet RxNorm: 584592 1 Tablet(s) PO QD 08/25/2018 Inactive lisinopril 40 mg tablet RxNorm: 271122 TAKE 1 TABLET BY MOUTH O NCE DAILY 07/21/2018 08/24/2018 Inactive fenofibrate micronized 134 mg capsule RxNorm: 719590 TA KE 1 CAPSULE BY MOUTH ONCE DAILY FOR TRIGLYCERIDES 07/12/2018 10/10/2018 Inactive propranolol ER 80 mg capsule,24 hr,extended release RxNorm: 719635 TAKE 1 CAPSULE BY MOUTH ONCE DAILY 06/21/2018 09/20/2018 Inactive lisinopril 40 mg tablet RxNorm: 167262 TAKE 1 TABLET BY MOUTH O NCE DAILY 04/26/2018 07/20/2018 Inactive metformin ER 500 mg tablet,extended release 24 hr RxNorm: 290338 1 Tablet(s) QD 03/31/2018 09/20/2018 Inactive lisinopril 40 mg tablet RxNorm: 063862 TAKE 1 TABLET BY MOUTH O NCE DAILY 01/28/2018 04/25/2018 Inactive Vitamin D3 5,000 unit tablet RxNorm: 587461 1 Tablet(s) PO QD 01/1908/18/2018 Inactive fenofibrate micronized 134 mg capsule RxNorm: 451027 1 Capsule(s) PO QD for triglycerides 01/19/2018 07/11/2018 Inactive metformin ER 500 mg tablet,extended release 24 hr RxNorm: 458669 1 Tablet(s) QD 12/31/2017 03/30/2018 Inactive metformin ER 500 mg tablet,extended release 24 hr RxNorm: 140495 Tablet(s) 12/30/2017 12/30/2017 Inactive propranolol ER 80 mg capsule,24 hr,extended release RxNorm: 293533 1 Capsule(s) PO QD 12/17/2017 06/14/2018 Inactive metformin ER 500 mg tablet,extended release 24 hr RxNorm: 86 0975 1 Tablet(s) PO QD DUE FOR LABS AND APPT 12/02/2017 12/30/2017 Inactive Crestor 10 mg tablet RxNorm: 835013 TAKE ONE TABLET BY MOUTH ON CE DAILY 11/01/2017 01/18/2018 Inactive lisinopril 40 mg tablet RxNorm: 766338 TAKE ONE TABLET BY MOUTH ONCE DAILY [...] ER 80 mg capsule,24 hr,extended release RxNorm: 879187 1 Capsule(s) PO QD DUE FOR APPT 09/08/2017 12/17/2017 Inactive Crestor 10 mg tablet RxNorm: 418320 1 Tablet(s) PO QD T CHELSI ONE TABLET BY MOUTH DAILY 03/11/2017 09/06/2017 Inactive propranolol ER 80 mg capsule,24 hr,extended release RxNorm: 492029 1 Capsule(s) PO QD TAKE ONE CAPSULE BY MOUTH DAILY - REPLACES AMLODOPINE 03/11/2017 09/08/2017 Inactive metformin ER 500 mg tablet,extended release 24 hr RxNorm: 86 0975 1 Tablet(s) PO QD 03/11/2017 09/08/2017 Inactive lisinopril 40 mg tablet RxNorm: 382955 1 Tablet(s) PO QD 03/11/2017 0 09/06/2017 Inactive lisinopril 40 mg tablet RxNorm: 482147 1 Tablet(s) PO QD 02/16/2017 1 05/11/2016 Inactive metformin ER 500 mg tablet,extended release 24 hr RxNorm: 86 0975 1 Tablet(s) PO QD Due for labs and follow up before further refills 02/16/2017 017 Inactive propranolol ER 80 mg capsule,24 hr,extended release RxNorm: 140728 Capsule(s) TAKE ONE CAPSULE BY MOUTH DAILY - REPLACES AMLODOPINE 11/19/20162016 Inactive lisinopril 40 mg tablet RxNorm: 598117 1 Tablet(s) PO QD 11/17/2016 1 04/18/2016 Inactive metformin ER 500 mg tablet,extended release 24 hr RxNorm: 86 0975 1 Tablet(s) PO QD 11/17/2016 02/16/2017 Inactive lisinopril 40 mg tablet RxNorm: 804958 1 Tablet(s) PO Q D TAKE ONE TABLET BY MOUTH DAILY 08/19/2016 11/17/2016 Inactive metformin ER 500 mg tablet,extended release 24 hr RxNorm: 86 0975 Tablet(s) TAKE ONE TABLET BY MOUTH DAILY 08/19/2016 11/16/2016 Inactive propranolol ER 80 mg capsule,24 hr,extended release RxNorm: 381750 Capsule(s) TAKE ONE CAPSULE BY MOUTH DAILY - REPLACES AMLODOPINE 08/19/20162016 Inactive Crestor 10 mg tablet RxNorm: 206976 TAKE ONE TABLET BY MOUTH DAILY 06/16/2016 03/10/2017 Inactive lisinopril 40 mg tablet RxNorm: 461360 1 Tablet(s) PO Q D TAKE ONE TABLET BY MOUTH DAILY 05/23/2016 08/18/2016 Inactive metformin ER 500 mg tablet,extended release 24 hr RxNorm: 86 0975 TAKE ONE TABLET BY MOUTH DAILY 05/23/2016 08/19/2016 Inactive propranolol ER 80 mg capsule,24 hr,extended release RxNorm: 117214 TAKE ONE CAPSULE BY MOUTH DAILY - REPLACES AMLODOPINE 05/23/2016 08/19/2016 Benoit ctive Crestor 10 mg tablet RxNorm: 323213 TAKE ONE TABLET BY MOUTH DAILY 03/31/2016 06/15/2016 Inactive metformin ER 500 mg tablet,extended release 24 hr RxNorm: 86 0975 TAKE ONE TABLET BY MOUTH DAILY 02/19/2016 05/22/2016 Inactive propranolol ER 80 mg capsule,24 hr,extended release RxNorm: 523179 TAKE ONE CAPSULE BY MOUTH DAILY - REPLACES AMLODOPINE 11/23/2015 05/20/2016 Benoit ctive metformin ER 500 mg tablet,extended release 24 hr RxNorm: 86 0975 TAKE ONE TABLET BY MOUTH DAILY 11/08/2015 02/05/2016 Inactive Bactroban Nasal 2 % ointment RxNorm: 720302 Apply topic ally to affected area twice daily 09/10/2015 03/09/2016 Inactive Vibramycin 100 mg capsule RxNorm: 910124 1 Capsule(s) PO BID 201509/23/2015 Inactive lisinopril 40 mg tablet RxNorm: 460083 1 Tablet(s) PO Q D TAKE ONE TABLET BY MOUTH DAILY 08/27/2015 02/22/2016 Inactive metformin ER 500 mg tablet,extended release 24 hr RxNorm: 86 0975 TAKE ONE TABLET BY MOUTH DAILY 08/06/2015 11/03/2015 Inactive Levsin/SL 0.125 mg sublingual tablet RxNorm: 3402511 1 T ablet(s) SL Q4H as needed for stomach cramps 06/29/2015 07/03/2015 Inactive lisinopril 40 mg tablet RxNorm: 523145 Tablet(s) TAKE ONE TABLE T BY MOUTH DAILY 06/07/2015 08/26/2015 Inactive propranolol ER 80 mg capsule,24 hr,extended release RxNorm: 603926 TAKE ONE CAPSULE BY MOUTH DAILY - REPLACES AMLODOPINE 05/30/2015 11/22/2015 Yvonne ctive metformin ER 500 mg tablet,extended release 24 hr RxNorm: 86 0975 1 Tablet(s) PO QD 05/10/2015 08/05/2015 Inactive Crestor 10 mg tablet RxNorm: 591595 TAKE ONE TABLET BY MOUTH DAILY 04/18/2015 10/14/2015 Inactive metformin ER 500 mg tablet,extended release 24 hr RxNorm: 86 0975 TAKE ONE TABLET BY MOUTH DAILY 02/07/2015 05/10/2015 Inactive sildenafil 20 mg tablet RxNorm: 574388 1 Tablet(s) PO QD 01/17/2015 1 04/17/2014 Inactive propranolol ER 80 mg capsule,24 hr,extended release RxNorm: 938859 1 Capsule(s) PO QD replaces amlodopine 11/28/2014 05/26/2015 Inactive [SALINASIN GS FOR UNINSURED PATIENTS -- BIN:[id number], PCN: [id number], Group: [id number], ID# [id number], Process claim through [employer], for questions: . THIS IS NOT INSURANCE.] lisinopril 40 mg tablet RxNorm: 686022 TAKE ONE TABLET BY MOUTH DAILY 11/16/2014 06/07/2015 Inactive lisinopril 40 mg tablet RxNorm: 527187 1 Tablet(s) PO QD 08/21/2014 0 11/15/2014 Inactive [AttnRPh: Saving apply/adjudicate RxGRP: [id number] RxBIN:[id number] RxPCN: ID#:[id number]] lisinopril 40 mg tablet RxNorm: 603581 1 Tablet(s) PO Q D NEEDS SEEN FOR APPOINTMENT 07/14/2014 08/21/2014 Inactive [AttnRPh: Saving apply/adjudicate RxGRP:SG20 RxBIN:[id number] RxPCN: ID#:[id number]] Crestor 10 mg tablet RxNorm: 156726 TAKE ONE TABLET BY MOUTH 07/06/2014 01/01/2015 Inactive metformin ER 500 mg tablet,extended release 24 hr RxNorm: 86 0975 1 Tablet(s) QD TAKE ONE TABLET BY MOUTH ONCE A DAY 06/09/2014 12/05/2014 Inactive propranolol ER 80 mg capsule,24 hr,extended release RxNorm: 926291 1 Capsule(s) PO QD replaces amlodopine 06/05/2014 11/28/2014 Inactive [[employer] GS FOR UNINSURED PATIENTS -- BIN:[id number], PCN: [id number], Group: [id number], ID# [id number], Process claim through [employer], for questions: . THIS IS NOT INSURANCE.] propranolol ER 80 mg capsule,24 hr,extended release RxNorm: 645506 1 Capsule(s) PO QD replaces amlodopine 03/07/2014 06/05/2014 Inactive [SAVIN GS FOR UNINSURED PATIENTS -- BIN:[id number], PCN: [id number], Group: [id number], ID# [id number], Process claim through [employer], for questions: . THIS IS NOT INSURANCE.] metformin ER 500 mg tablet,extended release 24 hr RxNorm: 86 0975 TAKE ONE TABLET BY MOUTH ONCE A DAY 12/15/2013 06/09/2014 Inactive propranolol ER 80 mg capsule,24 hr,extended release RxNorm: 600787 1 Capsule(s) PO QD replaces amlodopine 12/09/2013 03/07/2014 Inactive [NICOLAS FOR UNINSURED PATIENTS -- BIN:321580, PCN: [id number], Group: [id number], ID# [id number], Process claim through [employer], for questions: . THIS IS NOT INSURANCE.] acyclovir 800 mg tablet RxNorm: 919802 1 Tablet(s) PO QID 09/23/2013 09/29/2013 Inactive gabapentin 300 mg capsule RxNorm: 520463 1 Capsule(s) PO BID 201310/07/2013 Inactive metformin ER 500 mg tablet,extended release 24 hr RxNorm: 86 0975 1 Tablet(s) PO QD 09/19/2013 12/14/2013 Inactive propranolol ER 80 mg capsule,24 hr,extended release RxNorm: 146174 1 Capsule(s) PO QD replaces amlodopine 09/15/2013 12/09/2013 Inactive metformin ER 500 mg 24 hr tablet,extended release RxNorm: 86 0975 1 Tablet(s) PO QD 09/15/2013 09/18/2013 Inactive lisinopril 40 mg tablet RxNorm: 496262 1 Tablet(s) PO QD 07/19/2013 0 07/14/2014 Inactive Crestor 10 mg tablet RxNorm: 672873 Tablet(s) PO TAKE O NE TABLET BY MOUTH EVERY DAY 07/12/2013 07/05/2014 Inactive propranolol ER 80 mg capsule,24 hr,extended release RxNorm: 769420 1 Capsule(s) PO QD replaces amlodopine 06/20/2013 09/15/2013 Inactive triamcinolone acetonide 0.1 % topical ointment RxNorm: 15460 36 Application TOP BID 06/20/2013 06/26/2013 Inactive Crestor 10 mg tablet RxNorm: 550435 1 Tablet(s) PO QD 04/18/201310/2013 Inactive Viagra 100 mg tablet RxNorm: 827833 1 Tablet(s) PO as directed 01/0508/18/2018 Inactive TAKE ONE TABLET BY MOUTH DIRECTED Crestor 10 mg tablet RxNorm: 912387 1 Tablet(s) PO QD 01/17/201304/06 Inactive metformin ER 500 mg tablet,extended release 24 hr RxNorm: 86 0975 1 Tablet(s) PO QD TAKE ONE TABLET BY MOUTH EVERY DAY 12/23/2012 09/15/2013 Inactive triamcinolone acetonide 0.1 % topical ointment RxNorm: 38771 36 Application TOP BID 08/27/2012 09/02/2012 Inactive ketoconazole 2 % topical cream RxNorm: 839726 1 Application TOP QAM 08/27/2012 09/02/2012 Inactive lisinopril 40 mg tablet RxNorm: 232711 1 Tablet(s) PO QD 07/21/2012 0 07/15/2013 Inactive Crestor 10 mg tablet RxNorm: 400198 1 Tablet(s) PO QD 07/21/201210/04 Inactive amlodipine 10 mg tablet RxNorm: 406990 1 Tablet(s) PO QHS 07/21/2012 07/15/2013 Inactive metformin ER 500 mg tablet,extended release 24 hr RxNorm: 86 0977 Tablet(s) PO TAKE ONE TABLET BY MOUTH EVERY DAY 03/31/2012 12/22/2012 Inactive lisinopril 40 mg tablet RxNorm: 579898 1 Tablet(s) PO QD 07/29/2011 0 07/20/2012 Inactive amlodipine 10 mg tablet RxNorm: 932077 1 Tablet(s) PO QHS 07/29/2011 07/20/2012 Inactive amlodipine 10 mg Tab RxNorm: 513248 1 Tablet(s) PO QHS 07/29/2011 Inactive Viagra 100 mg tablet RxNorm: 153653 1 Tablet(s) PO as directed 07/0601/24/2013 Inactive TAKE ONE TABLET BY MOUTH DIRECTED Crestor 10 mg tablet RxNorm: 723233 1 Tablet(s) PO QD 07/29/201107/05 Inactive Norvasc 5 mg Tab RxNorm: 276683 1 Tablet(s) PO QD 07/16/2011 07/28/19 Inactive Norvasc 5 mg Tab RxNorm: 920563 1 Tablet(s) PO QD 06/26/2011 07/15/19 12 Inactive lisinopril 40 mg Tab RxNorm: 518423 1 Tablet(s) PO QD 05/13/201107/06 Inactive metformin ER 500 mg tablet,extended release 24 hr RxNorm: 86 0977 1 Tablet(s) PO QD 03/18/2011 07/28/2011 Inactive Crestor 10 mg Tab RxNorm: 458985 1 Tablet(s) PO QHS 01/27/20112011 Inactive metformin ER 500 mg 24 hr Tab RxNorm: 160428 1 Tablet(s) PO QD 11/0403/17/2011 Inactive Viagra 100 mg Tab RxNorm: 315417 Tablet(s) PO TAKE ON E TABLET BY MOUTH DIRECTED 08/26/2010 07/28/2011 Inactive metformin ER 500 mg 24 hr Tab RxNorm: 566618 1 Tablet(s) PO QD 07/0611/18/2010 Inactive Crestor 10 mg Tab RxNorm: 932642 1 Tablet(s) PO QHS 07/30/20102010 Inactive Crestor 10 mg Tab RxNorm: 340017 1 Tablet(s) PO QHS 05/20/20102010 Inactive Wellbutrin SR 150 mg Tab RxNorm: 297051 1 Tablet(s) PO QAM 04/24/19 11 07/22/2010 Inactive Multivitamin And Mineral tablet RxNorm: 1 Tablet(s) PO QD No Start Date Active FreeStyle Lite Strips RxNorm: 1 Unit Dose Miscel laneous AC & HS check blood sugar AC and HS No Start Date Active Co Q-10 200 mg capsule RxNorm: 886562 1 Capsule(s) PO QD No Start Date Active lancets RxNorm: 1 Milliliter(s) Miscellaneous AC & HS No Start Robert e Active Vitamin D3 4,000 unit capsule RxNorm: 8942522 1 Capsule(s) PO QD No Start Date 07/08/2016 Inactive Fish Oil 360 mg-1,200 mg capsule RxNorm: 112075 2 Capsule(s) PO QD No Start Date 01/30/2019 Inactive hydrocodone 5 mg-acetaminophen 325 mg tablet RxNorm: 951597 1 Tablet(s) PO Q4H as needed for severe pain No Start Date 12/30/2015 Inactive Xanax 0.25 mg tablet RxNorm: 540741 1/2 Tablet(s) PO PRN for se andrea stress No Start Date 07/08/2016 Inactive lisinopril 40 mg Tab RxNorm: 536339 1 Tablet(s) PO QD No Start Date 0 05/12/2011 Inactive Fish Oil 1,000 mg capsule RxNorm: 1 Capsule(s) PO QD No Start Date 09/18/2014 Inactive naproxen 500 mg Tab RxNorm: 591035 1 Tablet(s) PO BID No Start Date 0 07/28/2011 Inactive aspirin 81 mg tablet RxNorm: 058142 1 Tablet(s) PO QD No Start Date 0 05/09/2018 Inactive Crestor 10 mg Tab RxNorm: 559123 1 Tablet(s) PO QD No Start Date 07/06 Inactive Crestor 5 mg tablet RxNorm: 914649 1 Tablet(s) PO QD No Start Date Inactive Fish Oil Oral RxNorm: Oral No Start Date 09/18/2014 Inactive Viagra 100 mg Tab RxNorm: 044081 1 Tablet(s) PO as directed No Star [...] Item Code Result Date S ervice Location MEAN GLUC 1305587 Calc Mean Gluc 140 mg/dL 01/26/2019 Unkn own GLYCOSYLATED HEMOGLOBIN TEST 18488 Hgb A1c 33351-8 6.5 % 1 Unknown COMPREHENSIVE METABOLIC 15146 AST 17 U/L 2018 Unknown COMPREHENSIVE METABOLIC 81838 ALT 19 U/L 2018 Unknown COMPREHENSIVE METABOLIC 09322 BUN 19 mg/dL 2018 Unknown COMPREHENSIVE METABOLIC 39504 ALBUMIN 4.3 g/dL 2018 Unknown COMPREHENSIVE METABOLIC 31042 CHLORIDE 103 mmol/L 01/26 Unknown COMPREHENSIVE METABOLIC 30208 Bili Total 0.6 mg/dL 01/26 Unknown COMPREHENSIVE METABOLIC 30849 ALK PHOS 60 U/L 2018 Unknown COMPREHENSIVE METABOLIC 50415 SODIUM 140 mmol/L 01/26 Unknown COMPREHENSIVE METABOLIC 97629 CREATININE 1.21 mg/dL 01/05 Unknown COMPREHENSIVE METABOLIC 77432 CALCIUM 9.6 mg/dL 2018 Unknown COMPREHENSIVE METABOLIC 88948 POTASSIUM 4.5 mmol/L 01/26 Unknown COMPREHENSIVE METABOLIC 74974 Total Protein 6.7 g/dL Unknown COMPREHENSIVE METABOLIC 80322 Glucose 111 mg/dL 2018 Unknown COMPREHENSIVE METABOLIC 18356 Bicarbonate 28 mmol/L 01/05 Unknown COMPREHENSIVE METABOLIC 47755 AGAP 9 mmol/L 2018 Unknown COMPLETE BLOOD COUNT 0021508 WBC 10.7 10e9/L 019 Unknown COMPLETE BLOOD COUNT 6755758 RBC 4.38 10e12/L 2018 Unknown COMPLETE BLOOD COUNT 6783087 HEMOGLOBIN 13.7 g/dL 01/27/20 19 Unknown COMPLETE BLOOD COUNT 6170333 HEMATOCRIT 42.0 % 01/27/20 19 Unknown COMPLETE BLOOD COUNT 6758358 MCV 95.9 fL 9 Unknown COMPLETE BLOOD COUNT 9756032 MCH 31.3 pg 9 Unknown COMPLETE BLOOD COUNT 5088023 MCHC 32.6 g/dL 9 Unknown COMPLETE BLOOD COUNT 1156722 PLATELET COUNT 232 10e9/L Unknown COMPLETE BLOOD COUNT 8124495 Mean Plt Volume 11.4 fL Unknown COMPLETE BLOOD COUNT 5896789 Neut Auto 68.7 % 9 Unknown COMPLETE BLOOD COUNT 8213848 Lymph Auto 21.2 % 01/27/20 19 Unknown COMPLETE BLOOD COUNT 9245595 [place] Auto 8.1 % 9 Unknown COMPLETE BLOOD COUNT 8673667 RDW 14.1 % 9 Unknown COMPLETE BLOOD COUNT 2565022 Eos Auto 1.8 % 9 Unknown COMPLETE BLOOD COUNT 4286920 Baso Auto 0.2 % 9 Unknown COMPLETE BLOOD COUNT 9527985 Neutrophil Abs 7.35 10e9/L Unknown COMPLETE BLOOD COUNT [id number] Lymphocyte Abs 2.27 10e9/L Unknown COMPLETE BLOOD COUNT [id number] Monocyte Abs 0.87 10e9/L 01/05 Unknown COMPLETE BLOOD COUNT 6631536 Eosinophil Abs 0.19 10e9/L Unknown COMPLETE BLOOD COUNT 1443490 RDW-SD 47.7 fL 9 Unknown COMPLETE BLOOD COUNT [id number] Basophil Abs 0.02 10e9/L 01/05 Unknown GFR CALC 3984162 GFR Non Afr Amr 59 mL/min 01/26/2019 Unk nown GFR CALC [id number] GFR Afr Amr >60 mL/min 01/26/2019 Unknow n LIPID GROUP 12833 Cholesterol 215 mg/dL 01/26/2019 Unkno wn LIPID GROUP 95799 Triglyceride 221 mg/dL 01/26/2019 Unkn own LIPID GROUP 75765 HDL CHOLESTEROL 41 mg/dL 01/26/2019 U nknown LIPID GROUP 29413 Chol/HDL Ratio 5.24 ratio 01/26/2019 U nknown LIPID GROUP 18241 NON-HDL Chol 174 mg/dL 01/26/2019 Unkn own LIPID GROUP 15366 LDL Cholesterol 130 mg/dL 01/26/2019 [place] [address] Glucose 104 mg/dL 09/30 [place] [address] CREATININE 1.18 mg/dL [place] [address] BUN 19 mg/dL 09/30 [place] [address] SODIUM 139 mmol/L 09/05 [place] [address] POTASSIUM 4.1 mmol/L 09/05 [place] [address] CHLORIDE 105 mmol/L 09/05 [place] [address] Bicarbonate 26 mmol/L [place] [address] AGAP 8 mmol/L 09/30 [place] [address] CALCIUM 9.3 mg/dL 09/30 Unknown GFR CALC 8188571 GFR Non Afr Amr >60 mL/min 09/30/2018 Un known GFR CALC [id number] GFR Afr Amr >60 mL/min 09/30/2018 Unknow n MICROALBUMIN URINE RANDOM 17612 U Microalbumin <2.0 mg/L 08/19/2018 Unknown MICROALBUMIN URINE RANDOM 77765 U Creatinine 66 mg/dL 0 08/19/2018 Unknown MICROALBUMIN URINE RANDOM 48939 ALB/CR Ratio <3.0 mg/gCR 08/19/2018 Unknown COMPREHENSIVE METABOLIC 46091 AST 21 U/L 2018 Unknown COMPREHENSIVE METABOLIC 10461 ALT 20 U/L 2018 Unknown COMPREHENSIVE METABOLIC 99800 BUN 31 mg/dL 2018 Unknown COMPREHENSIVE METABOLIC 58447 ALBUMIN 4.4 g/dL 2018 Unknown COMPREHENSIVE METABOLIC 64924 CHLORIDE 105 mmol/L 08/16 Unknown COMPREHENSIVE METABOLIC 93806 Bili Total 0.5 mg/dL 08/16 Unknown COMPREHENSIVE METABOLIC 84490 ALK PHOS 40 U/L 2018 Unknown COMPREHENSIVE METABOLIC 92973 SODIUM 140 mmol/L 08/16 Unknown COMPREHENSIVE METABOLIC 62294 CREATININE 1.45 mg/dL 08/04 Unknown COMPREHENSIVE METABOLIC 10518 CALCIUM 9.8 mg/dL 2018 Unknown COMPREHENSIVE METABOLIC 50720 POTASSIUM 5.1 mmol/L 08/16 Unknown COMPREHENSIVE METABOLIC 20279 Total Protein 6.9 g/dL Unknown COMPREHENSIVE METABOLIC 40208 Glucose 110 mg/dL 2018 Unknown COMPREHENSIVE METABOLIC 71029 Bicarbonate 25 mmol/L 08/04 Unknown COMPREHENSIVE METABOLIC 90595 AGAP 10 mmol/L 2018 Unknown GFR CALC 6747922 GFR Non Afr Amr 48 mL/min 08/16/2018 Unk nown GFR CALC 5492390 GFR Afr Amr 58 mL/min 08/16/2018 Unknown GLYCOSYLATED HEMOGLOBIN TEST 49278 Hgb A1c 69263-2 5.9 % 0 08/16/2018 Unknown LIPID GROUP 93266 Cholesterol 226 mg/dL 08/16/2018 Unkno wn LIPID GROUP 09994 Triglyceride 335 mg/dL 08/16/2018 Unkn own LIPID GROUP 14601 HDL CHOLESTEROL 32 mg/dL 08/16/2018 U nknown LIPID GROUP 90824 Chol/HDL Ratio 7.06 ratio 08/16/2018 U nknown LIPID GROUP 80299 NON-HDL Chol 194 mg/dL 08/16/2018 Unkn own LIPID GROUP 99708 LDL Cholesterol 127 mg/dL 08/16/2018 U nknown THYROID STIMULATING HORMONE 11393 TSH 2.475 uIU/mL 08/16/2018 Unknown COMPLETE BLOOD COUNT 0744937 WBC 7.5 10e9/L 08/17/19 19 Unknown COMPLETE BLOOD COUNT 4714044 RBC 4.09 10e12/L 2018 Unknown COMPLETE BLOOD COUNT 5850800 HEMOGLOBIN 12.9 g/dL 08/17/19 19 Unknown COMPLETE BLOOD COUNT 3921992 HEMATOCRIT 40.0 % 08/17/19 19 Unknown COMPLETE BLOOD COUNT 3923216 MCV 97.8 fL 9 Unknown COMPLETE BLOOD COUNT 5050272 MCH 31.5 pg 9 Unknown COMPLETE BLOOD COUNT 8473061 MCHC 32.3 g/dL 9 Unknown COMPLETE BLOOD COUNT 0620703 PLATELET COUNT 258 10e9/L Unknown COMPLETE BLOOD COUNT 1240586 Mean Plt Volume 11.4 fL Unknown COMPLETE BLOOD COUNT 7136335 Neut Auto 62.9 % 9 Unknown COMPLETE BLOOD COUNT 9044986 Lymph Auto 27.3 % 08/17/19 19 Unknown COMPLETE BLOOD COUNT 9825688 [place] Auto 8.2 % 9 Unknown COMPLETE BLOOD COUNT 8840569 RDW 13.3 % 9 Unknown COMPLETE BLOOD COUNT 1140586 Eos Auto 1.5 % 9 Unknown COMPLETE BLOOD COUNT 0944050 Baso Auto 0.1 % 9 Unknown COMPLETE BLOOD COUNT 6550122 Neutrophil Abs 4.72 10e9/L Unknown COMPLETE BLOOD COUNT 9115088 Lymphocyte Abs 2.05 10e9/L Unknown COMPLETE BLOOD COUNT 3173254 Monocyte Abs 0.62 10e9/L 08/04 Unknown COMPLETE BLOOD COUNT 7042401 Eosinophil Abs 0.11 10e9/L Unknown COMPLETE BLOOD COUNT 1021210 RDW-SD 46.7 fL 9 Unknown COMPLETE BLOOD COUNT 7681878 Basophil Abs 0.01 10e9/L 08/04 Unknown MEAN GLUC 2722683 Calc Mean Gluc 123 mg/dL 08/16/2018 Unkn own LIPID GROUP 28289 Cholesterol 212 mg/dL 05/05/2018 Unkno wn LIPID GROUP 81936 Triglyceride 271 mg/dL 05/05/2018 Unkn own LIPID GROUP 28546 HDL CHOLESTEROL 38 mg/dL 05/05/2018 U nknown LIPID GROUP 45033 Chol/HDL Ratio 5.58 ratio 05/05/2018 U nknown LIPID GROUP 44667 NON-HDL Chol 174 mg/dL 05/05/2018 Unkn own LIPID GROUP 43341 LDL Cholesterol 120 mg/dL 05/05/2018 U nknown GFR CALC 0909889 GFR Non Afr Amr 49 mL/min 05/05/2018 Unk nown GFR CALC 3530139 GFR Afr Amr 59 mL/min 05/05/2018 Unknown GLYCOSYLATED HEMOGLOBIN TEST 31799 Hgb A1c 44827-7 6.0 % 0 05/05/2018 Unknown MEAN GLUC 9743634 Calc Mean Gluc 126 mg/dL 05/05/2018 Unkn own COMPREHENSIVE METABOLIC 70564 AST 18 U/L 2018 Unknown COMPREHENSIVE METABOLIC 33521 ALT 23 U/L 2018 Unknown COMPREHENSIVE METABOLIC 66402 BUN 30 mg/dL 2018 Unknown COMPREHENSIVE METABOLIC 06609 ALBUMIN 4.3 g/dL 2018 Unknown COMPREHENSIVE METABOLIC 32732 CHLORIDE 106 mmol/L 05/05 Unknown COMPREHENSIVE METABOLIC 30019 Bili Total 0.4 mg/dL 05/05 Unknown COMPREHENSIVE METABOLIC 82961 ALK PHOS 39 U/L 2018 Unknown COMPREHENSIVE METABOLIC 30036 SODIUM 139 mmol/L 05/05 Unknown COMPREHENSIVE METABOLIC 63192 CREATININE 1.44 mg/dL 04/08 Unknown COMPREHENSIVE METABOLIC 79944 CALCIUM 9.6 mg/dL 2018 Unknown COMPREHENSIVE METABOLIC 79437 POTASSIUM 4.7 mmol/L 05/05 Unknown COMPREHENSIVE METABOLIC 15068 Total Protein 6.6 g/dL Unknown COMPREHENSIVE METABOLIC 49507 Glucose 112 mg/dL 2018 Unknown COMPREHENSIVE METABOLIC 93905 Bicarbonate 28 mmol/L 04/08 Unknown COMPREHENSIVE METABOLIC 81300 AGAP 5 mmol/L 2018 Unknown THYROID STIMULATING HORMONE 09725 TSH 3.725 uIU/mL 05/05/2018 Unknown COMPLETE BLOOD COUNT 4518505 WBC 8.2 10e9/L 05/05/19 19 Unknown COMPLETE BLOOD COUNT 6016325 RBC 4.02 10e12/L 2018 Unknown COMPLETE BLOOD COUNT [id number] HEMOGLOBIN 12.7 g/dL 05/05/19 19 Unknown COMPLETE BLOOD COUNT [id number] HEMATOCRIT 39.3 % 05/05/19 19 Unknown COMPLETE BLOOD COUNT [id number] MCV 97.8 fL 9 Unknown COMPLETE BLOOD COUNT [id number] MCH 31.6 pg 9 Unknown COMPLETE BLOOD COUNT 7353936 MCHC 32.3 g/dL 9 Unknown COMPLETE BLOOD COUNT 5093401 PLATELET COUNT 213 10e9/L Unknown COMPLETE BLOOD COUNT 7981541 Mean Plt Volume 11.7 fL Unknown COMPLETE BLOOD COUNT [id number] Neut Auto 55.7 % 9 Unknown COMPLETE BLOOD COUNT 6291998 Lymph Auto 33.2 % 05/05/19 19 Unknown COMPLETE BLOOD COUNT 9180950 [place] Auto 8.5 % 9 Unknown COMPLETE BLOOD COUNT 2548999 RDW 13.9 % 9 Unknown COMPLETE BLOOD COUNT 0043538 Eos Auto 2.4 % 9 Unknown COMPLETE BLOOD COUNT 8804639 Baso Auto 0.2 % 9 Unknown COMPLETE BLOOD COUNT [id number] Neutrophil Abs 4.57 10e9/L Unknown COMPLETE BLOOD COUNT 4941936 Lymphocyte Abs 2.72 10e9/L Unknown COMPLETE BLOOD COUNT [id number] Monocyte Abs 0.70 10e9/L 04/08 Unknown COMPLETE BLOOD COUNT [id number] Eosinophil Abs 0.20 10e9/L Unknown COMPLETE BLOOD COUNT [id number] RDW-SD 48.8 fL 9 Unknown COMPLETE BLOOD COUNT [id number] Basophil Abs 0.02 10e9/L 04/08 Unknown MICROALBUMIN URINE RANDOM 84916 U Microalbumin 19.3 mg/L 01/19/2018 Unknown MICROALBUMIN URINE RANDOM 27830 U Creatinine 96 mg/dL 1 Unknown MICROALBUMIN URINE RANDOM 33250 ALB/CR Ratio 20.1 mg/gCR 01/19/2018 Unknown LIPID GROUP 86499 Cholesterol 173 mg/dL 01/13/2018 Unkno wn LIPID GROUP 62487 Triglyceride 386 mg/dL 01/13/2018 Unkn own LIPID GROUP 81911 HDL CHOLESTEROL 37 mg/dL 01/13/2018 U nknown LIPID GROUP 38052 Chol/HDL Ratio 4.68 ratio 01/13/2018 U nknown LIPID GROUP 92014 NON-HDL Chol 136 mg/dL 01/13/2018 Unkn own LIPID GROUP 39710 LDL Cholesterol 59 mg/dL 01/13/2018 U nknown COMPLETE BLOOD COUNT [id number] WBC TNP:Client Request 01/13/2018 Unknown COMPLETE BLOOD COUNT [id number] RBC TNP:Client Request 01/13/2018 Unknown COMPLETE BLOOD COUNT [id number] HEMOGLOBIN TNP:Client Request 01/13/2018 Unknown COMPLETE BLOOD COUNT [id number] HEMATOCRIT TNP:Client Request 01/13/2018 Unknown COMPLETE BLOOD COUNT [id number] MCV TNP:Client Request 01/13/2018 Unknown COMPLETE BLOOD COUNT [id number] MCH TNP:Client Request 01/13/2018 Unknown COMPLETE BLOOD COUNT [id number] MCHC TNP:Client Request 01/13/2018 Unknown COMPLETE BLOOD COUNT [id number] PLATELET COUNT TNP:Client Req uest 01/13/2018 Unknown COMPLETE BLOOD COUNT [id number] Mean Plt Volume TNP:Client Re quest 01/13/2018 Unknown COMPLETE BLOOD COUNT [id number] Neut Auto TNP:Client Request 01/13/2018 Unknown COMPLETE BLOOD COUNT [id number] Lymph Auto TNP:Client Request 01/13/2018 Unknown COMPLETE BLOOD COUNT [id number] [place] Auto TNP:Client Request 01/13/2018 Unknown COMPLETE BLOOD COUNT [id number] RDW TNP:Client Request 01/13/2018 Unknown COMPLETE BLOOD COUNT [id number] Eos Auto TNP:Client Request 01/13/2018 Unknown COMPLETE BLOOD COUNT [id number] Baso Auto TNP:Client Request 01/13/2018 Unknown COMPLETE BLOOD COUNT [id number] Neutrophil Abs TNP:Client Req uest 01/13/2018 Unknown COMPLETE BLOOD COUNT [id number] Lymphocyte Abs TNP:Client Req uest 01/13/2018 Unknown COMPLETE BLOOD COUNT [id number] Monocyte Abs TNP:Client Reque st 01/13/2018 Unknown COMPLETE BLOOD COUNT [id number] Eosinophil Abs TNP:Client Req uest 01/13/2018 Unknown COMPLETE BLOOD COUNT [id number] RDW-SD TNP:Client Request 01/13/2018 Unknown COMPLETE BLOOD COUNT [id number] Basophil Abs TNP:Client Reque st 01/13/2018 Unknown GLYCOSYLATED HEMOGLOBIN TEST 87848 Hgb A1c 09156-7 6.2 % 1 Unknown THYROID STIMULATING HORMONE 05496 TSH 2.764 uIU/mL 01/13/2018 Unknown COMPREHENSIVE METABOLIC 82459 AST 19 U/L 2017 Unknown COMPREHENSIVE METABOLIC 42077 ALT 21 U/L 2017 Unknown COMPREHENSIVE METABOLIC 18241 BUN 16 mg/dL 2017 Unknown COMPREHENSIVE METABOLIC 93724 ALBUMIN 4.2 g/dL 2017 Unknown COMPREHENSIVE METABOLIC 15713 CHLORIDE 105 mmol/L 01/13 Unknown COMPREHENSIVE METABOLIC 27677 Bili Total 0.5 mg/dL 01/13 Unknown COMPREHENSIVE METABOLIC 04954 ALK PHOS 85 U/L 2017 Unknown COMPREHENSIVE METABOLIC 42351 SODIUM 139 mmol/L 01/13 Unknown COMPREHENSIVE METABOLIC 33180 CREATININE 1.07 mg/dL 01/04 Unknown COMPREHENSIVE METABOLIC 81217 CALCIUM 9.2 mg/dL 2017 Unknown COMPREHENSIVE METABOLIC 07667 POTASSIUM 4.4 mmol/L 01/13 Unknown COMPREHENSIVE METABOLIC 77194 Total Protein 7.7 g/dL Unknown COMPREHENSIVE METABOLIC 45078 Glucose 130 mg/dL 2017 Unknown COMPREHENSIVE METABOLIC 30411 Bicarbonate 27 mmol/L 01/04 Unknown COMPREHENSIVE METABOLIC 48082 AGAP 7 mmol/L 2017 Unknown PSA EQUIMOLAR JERSON 49844 PSA Total 1.16 ng/mL 8 Unknown MEAN GLUC 1594553 Calc Mean Gluc 131 mg/dL 01/13/2018 Unkn own GFR CALC 2676996 GFR Non Afr Amr >60 mL/min 01/13/2018 Un known GFR CALC 2470395 GFR Afr Amr >60 mL/min 01/13/2018 Unknow n MEAN GLUC 0187541 Calc Mean Gluc 134 mg/dL 10/06/2017 Unkn own GFR CALC 6249592 GFR Non Afr Amr >60 mL/min 10/06/2017 Un known GFR CALC 9437632 GFR Afr Amr >60 mL/min 10/06/2017 Unknow n GLYCOSYLATED HEMOGLOBIN TEST 64240 Hgb A1c 48055-7 6.3 % 0 10/06/2017 Unknown VITAMIN B 12 50737 VITAMIN B12 1202 pg/mL 10/06/2017 Unk nown COMPLETE BLOOD COUNT 4372003 WBC 7.4 10e9/L 10/07/19 18 Unknown COMPLETE BLOOD COUNT [id number] RBC 4.24 10e12/L 2017 Unknown COMPLETE BLOOD COUNT [id number] HEMOGLOBIN 13.5 g/dL 10/07/19 18 Unknown COMPLETE BLOOD COUNT [id number] HEMATOCRIT 41.6 % 10/07/19 18 Unknown COMPLETE BLOOD COUNT 5180808 MCV 98.1 fL 8 Unknown COMPLETE BLOOD COUNT 8956881 MCH 31.8 pg 8 Unknown COMPLETE BLOOD COUNT [id number] MCHC 32.5 g/dL 8 Unknown COMPLETE BLOOD COUNT [id number] PLATELET COUNT 223 10e9/L 06/2017 Unknown COMPLETE BLOOD COUNT [id number] Mean Plt Volume 11.9 fL 06/2017 Unknown COMPLETE BLOOD COUNT 6400155 Neut Auto 58.0 % 8 Unknown COMPLETE BLOOD COUNT 6980617 Lymph Auto 29.7 % 10/07/19 18 Unknown COMPLETE BLOOD COUNT 6586451 [place] Auto 8.3 % 8 Unknown COMPLETE BLOOD COUNT 3495845 RDW 14.0 % 8 Unknown COMPLETE BLOOD COUNT 9796977 Eos Auto 3.7 % 8 Unknown COMPLETE BLOOD COUNT 8431586 Baso Auto 0.3 % 8 Unknown COMPLETE BLOOD COUNT [id number] Neutrophil Abs 4.29 10e9/L Unknown COMPLETE BLOOD COUNT 1677147 Lymphocyte Abs 2.20 10e9/L Unknown COMPLETE BLOOD COUNT [id number] Monocyte Abs 0.61 10e9/L 06/2017 Unknown COMPLETE BLOOD COUNT [id number] Eosinophil Abs 0.27 10e9/L Unknown COMPLETE BLOOD COUNT 1559121 RDW-SD 48.6 fL 8 Unknown COMPLETE BLOOD COUNT [id number] Basophil Abs 0.02 10e9/L 06/2017 Unknown LIPID GROUP 59609 Cholesterol 216 mg/dL 10/06/2017 Unkno wn LIPID GROUP 82325 Triglyceride 335 mg/dL 10/06/2017 Unkn own LIPID GROUP 39679 HDL CHOLESTEROL 33 mg/dL 10/06/2017 U nknown LIPID GROUP 57371 Chol/HDL Ratio 6.55 ratio 10/06/2017 U nknown LIPID GROUP 05604 NON-HDL Chol 183 mg/dL 10/06/2017 Unkn own LIPID GROUP 98277 LDL Cholesterol 116 mg/dL 10/06/2017 U nknown COMPREHENSIVE METABOLIC 65620 AST 15 U/L 2017 Unknown COMPREHENSIVE METABOLIC 19428 ALT 15 U/L 2017 Unknown COMPREHENSIVE METABOLIC 86573 BUN 21 mg/dL 2017 Unknown COMPREHENSIVE METABOLIC 79661 ALBUMIN 4.1 g/dL 2017 Unknown COMPREHENSIVE METABOLIC 89002 CHLORIDE 107 mmol/L 10/06 Unknown COMPREHENSIVE METABOLIC 96544 Bili Total 0.6 mg/dL 10/06 Unknown COMPREHENSIVE METABOLIC 94709 ALK PHOS 68 U/L 2017 Unknown COMPREHENSIVE METABOLIC 61302 SODIUM 140 mmol/L 10/06 Unknown COMPREHENSIVE METABOLIC 22630 CREATININE 1.12 mg/dL 06/2017 Unknown COMPREHENSIVE METABOLIC 38461 CALCIUM 9.7 mg/dL 2017 Unknown COMPREHENSIVE METABOLIC 06801 POTASSIUM 4.6 mmol/L 10/06 Unknown COMPREHENSIVE METABOLIC 95465 Total Protein 6.6 g/dL Unknown COMPREHENSIVE METABOLIC 12508 Glucose 114 mg/dL 2017 Unknown COMPREHENSIVE METABOLIC 81612 Bicarbonate 26 mmol/L 06/2017 Unknown COMPREHENSIVE METABOLIC 32687 AGAP 7 mmol/L 2017 Unknown GLYCOSYLATED HEMOGLOBIN TEST 64057 Hgb A1c 31128-9 6.1 % 1 05/05/2016 Unknown GFR CALC 4919700 GFR Non Afr Amr >60 mL/min 03/05/2017 Un known GFR CALC 0471749 GFR Afr Amr >60 mL/min 03/05/2017 Unknow n MEAN GLUC 1017030 Calc Mean Gluc 128 mg/dL 03/05/2017 Unkn own COMPREHENSIVE METABOLIC 46785 AST 18 U/L 2016 Unknown COMPREHENSIVE METABOLIC 57011 ALT 20 U/L 2016 Unknown COMPREHENSIVE METABOLIC 18192 BUN 15 mg/dL 2016 Unknown COMPREHENSIVE METABOLIC 64440 ALBUMIN 4.3 g/dL 2016 Unknown COMPREHENSIVE METABOLIC 73570 CHLORIDE 105 mmol/L 03/05 Unknown COMPREHENSIVE METABOLIC 58612 Bili Total 0.5 mg/dL 03/05 Unknown COMPREHENSIVE METABOLIC 33111 ALK PHOS 57 U/L 2016 Unknown COMPREHENSIVE METABOLIC 93622 SODIUM 141 mmol/L 03/05 Unknown COMPREHENSIVE METABOLIC 27908 CREATININE 1.07 mg/dL 02/06 Unknown COMPREHENSIVE METABOLIC 74237 CALCIUM 9.3 mg/dL 2016 Unknown COMPREHENSIVE METABOLIC 06596 POTASSIUM 4.8 mmol/L 03/05 Unknown COMPREHENSIVE METABOLIC 67926 Total Protein 6.2 g/dL Unknown COMPREHENSIVE METABOLIC 38857 Glucose 118 mg/dL 2016 Unknown COMPREHENSIVE METABOLIC 90942 Bicarbonate 29 mmol/L 02/06 Unknown COMPREHENSIVE METABOLIC 57894 AGAP 7 mmol/L 2016 Unknown FREE T4 40116 T4 Free 1.38 ng/dL 03/05/2017 Unknown COMPLETE BLOOD COUNT 1706288 WBC 8.4 10e9/L 03/05/20 17 Unknown COMPLETE BLOOD COUNT [id number] RBC 4.11 10e12/L 2016 Unknown COMPLETE BLOOD COUNT [id number] HEMOGLOBIN 12.8 g/dL 03/05/20 17 Unknown COMPLETE BLOOD COUNT 1216975 HEMATOCRIT 40.1 % 03/05/20 17 Unknown COMPLETE BLOOD COUNT 2412605 MCV 97.6 fL 7 Unknown COMPLETE BLOOD COUNT 5602455 MCH 31.1 pg 7 Unknown COMPLETE BLOOD COUNT 7025719 MCHC 31.9 g/dL 7 Unknown COMPLETE BLOOD COUNT 8522502 PLATELET COUNT 184 10e9/L Unknown COMPLETE BLOOD COUNT 6076264 Mean Plt Volume 11.3 fL Unknown COMPLETE BLOOD COUNT 1743435 Neut Auto 62.5 % 7 Unknown COMPLETE BLOOD COUNT 5083591 Lymph Auto 26.4 % 03/05/20 17 Unknown COMPLETE BLOOD COUNT 6726188 [place] Auto 7.9 % 7 Unknown COMPLETE BLOOD COUNT 4011493 RDW 13.5 % 7 Unknown COMPLETE BLOOD COUNT 8440086 Eos Auto 3.0 % 7 Unknown COMPLETE BLOOD COUNT 6742435 Baso Auto 0.2 % 7 Unknown COMPLETE BLOOD COUNT [id number] Neutrophil Abs 5.25 10e9/L Unknown COMPLETE BLOOD COUNT 9069804 Lymphocyte Abs 2.22 10e9/L Unknown COMPLETE BLOOD COUNT 8283827 Monocyte Abs 0.66 10e9/L 02/06 Unknown COMPLETE BLOOD COUNT 5563824 Eosinophil Abs 0.25 10e9/L Unknown COMPLETE BLOOD COUNT 3481964 RDW-SD 46.7 fL 7 Unknown COMPLETE BLOOD COUNT [id number] Basophil Abs 0.02 10e9/L 02/06 Unknown THYROID STIMULATING HORMONE 92869 TSH 2.330 uIU/mL 03/05/2017 Unknown LIPID GROUP 08041 Cholesterol 135 mg/dL 03/05/2017 Unkno wn LIPID GROUP 97442 Triglyceride 297 mg/dL 03/05/2017 Unkn own LIPID GROUP 26935 HDL CHOLESTEROL 34 mg/dL 03/05/2017 U nknown LIPID GROUP 77336 Chol/HDL Ratio 3.97 ratio 03/05/2017 U nknown LIPID GROUP 90194 NON-HDL Chol 101 mg/dL 03/05/2017 Unkn own LIPID GROUP 24765 LDL Cholesterol 42 mg/dL 03/05/2017 U nknown GLYCOSYLATED HEMOGLOBIN TEST 24331 Hgb A1c 54264-5 6.5 % 1 05/07/2015 Unknown GFR CALC 4801928 GFR Non Afr Amr 55 mL/min 03/06/2016 Unk nown GFR CALC 0101307 GFR Afr Amr >60 mL/min 03/06/2016 Unknow n COMPLETE BLOOD COUNT 1721161 WBC 8.5 10e9/L 03/06/20 16 Unknown COMPLETE BLOOD COUNT [id number] RBC 4.32 10e12/L 2015 Unknown COMPLETE BLOOD COUNT 8551782 HEMOGLOBIN 13.5 g/dL 03/06/20 16 Unknown COMPLETE BLOOD COUNT 6574823 HEMATOCRIT 41.3 % 03/06/20 16 Unknown COMPLETE BLOOD COUNT 7708692 MCV 95.6 fL 6 Unknown COMPLETE BLOOD COUNT 7460201 MCH 31.3 pg 6 Unknown COMPLETE BLOOD COUNT 7633698 MCHC 32.7 g/dL 6 Unknown COMPLETE BLOOD COUNT 3432505 PLATELET COUNT 191 10e9/L 04/2015 Unknown COMPLETE BLOOD COUNT 5785625 Mean Plt Volume 11.7 fL 04/2015 Unknown COMPLETE BLOOD COUNT 0323633 Neut Auto 64.2 % 6 Unknown COMPLETE BLOOD COUNT 1752911 Lymph Auto 25.9 % 03/06/20 16 Unknown COMPLETE BLOOD COUNT 2424973 [place] Auto 7.8 % 6 Unknown COMPLETE BLOOD COUNT 2146281 RDW 13.4 % 6 Unknown COMPLETE BLOOD COUNT 6817487 Eos Auto 2.0 % 6 Unknown COMPLETE BLOOD COUNT 2717677 Baso Auto 0.1 % 6 Unknown COMPLETE BLOOD COUNT 1100571 Neutrophil Abs 5.46 10e9/L Unknown COMPLETE BLOOD COUNT 0673553 Lymphocyte Abs 2.20 10e9/L Unknown COMPLETE BLOOD COUNT [id number] Monocyte Abs 0.66 10e9/L 04/2015 Unknown COMPLETE BLOOD COUNT 4159516 Eosinophil Abs 0.17 10e9/L Unknown COMPLETE BLOOD COUNT 7516572 RDW-SD 45.0 fL 6 Unknown COMPLETE BLOOD COUNT [id number] Basophil Abs 0.01 10e9/L 04/2015 Unknown FREE T4 12963 T4 Free 1.34 ng/dL 03/06/2016 Unknown MEAN GLUC 7062223 Calc Mean Gluc 140 mg/dL 03/06/2016 Unkn own COMPREHENSIVE METABOLIC 67116 AST 15 U/L 2015 Unknown COMPREHENSIVE METABOLIC 63680 ALT 18 U/L 2015 Unknown COMPREHENSIVE METABOLIC 21736 BUN 21 mg/dL 2015 Unknown COMPREHENSIVE METABOLIC 78809 ALBUMIN 4.3 g/dL 2015 Unknown COMPREHENSIVE METABOLIC 40585 CHLORIDE 103 mmol/L 03/06 Unknown COMPREHENSIVE METABOLIC 29380 Bili Total 0.4 mg/dL 03/06 Unknown COMPREHENSIVE METABOLIC 12144 ALK PHOS 68 U/L 2015 Unknown COMPREHENSIVE METABOLIC 18626 SODIUM 140 mmol/L 03/06 Unknown COMPREHENSIVE METABOLIC 01525 CREATININE 1.31 mg/dL 04/2015 Unknown COMPREHENSIVE METABOLIC 08466 CALCIUM 9.4 mg/dL 2015 Unknown COMPREHENSIVE METABOLIC 73945 POTASSIUM 4.8 mmol/L 03/06 Unknown COMPREHENSIVE METABOLIC 05601 Total Protein 6.6 g/dL Unknown COMPREHENSIVE METABOLIC 34240 Glucose 142 mg/dL 2015 Unknown COMPREHENSIVE METABOLIC 68069 Bicarbonate 29 mmol/L 04/2015 Unknown COMPREHENSIVE METABOLIC 46567 AGAP 8 mmol/L 2015 Unknown THYROID STIMULATING HORMONE 38768 TSH 2.288 uIU/mL 03/06/2016 Unknown LIPID GROUP 63495 Cholesterol 154 mg/dL 03/06/2016 Unkno wn LIPID GROUP 20175 Triglyceride 266 mg/dL 03/06/2016 Unkn own LIPID GROUP 98867 HDL CHOLESTEROL 38 mg/dL 03/06/2016 U nknown LIPID GROUP 87107 Chol/HDL Ratio 4.05 ratio 03/06/2016 U nknown LIPID GROUP 57663 NON-HDL Chol 116 mg/dL 03/06/2016 Unkn own LIPID GROUP 95170 LDL Cholesterol 63 mg/dL 03/06/2016 U nknown MEAN GLUC Mean Glucose 128 mg/dL 08/31/2015 Unknow n COMPLETE BLOOD COUNT [id number] WBC 8.4 10e9/L 08/31/19 16 Unknown COMPLETE BLOOD COUNT 2757105 RBC 4.12 10e12/L 2015 Unknown COMPLETE BLOOD COUNT 9768130 HEMOGLOBIN 12.8 g/dL 08/31/19 16 Unknown COMPLETE BLOOD COUNT [id number] HEMATOCRIT 39.6 % 08/31/19 16 Unknown COMPLETE BLOOD COUNT 4198136 MCV 96.1 fL 6 Unknown COMPLETE BLOOD COUNT 3361500 MCH 31.1 pg 6 Unknown COMPLETE BLOOD COUNT 7512412 MCHC 32.3 g/dL 6 Unknown COMPLETE BLOOD COUNT 3684218 PLATELET COUNT 184 10e9/L Unknown COMPLETE BLOOD COUNT 2799377 Mean Plt Volume 12.0 fL Unknown COMPLETE BLOOD COUNT 3258385 Neut Auto 59.8 % 6 Unknown COMPLETE BLOOD COUNT 7848595 Lymph Auto 27.9 % 08/31/19 16 Unknown COMPLETE BLOOD COUNT 8924400 [place] Auto 9.1 % 6 Unknown COMPLETE BLOOD COUNT 4239981 RDW 13.6 % 6 Unknown COMPLETE BLOOD COUNT 3904632 Eos Auto 3.1 % 6 Unknown COMPLETE BLOOD COUNT 7647693 Baso Auto 0.1 % 6 Unknown COMPLETE BLOOD COUNT 9193221 Neutrophil Abs 5.02 10e9/L Unknown COMPLETE BLOOD COUNT 6974213 Lymphoctye Abs 2.34 10e9/L Unknown COMPLETE BLOOD COUNT 1305041 Monocyte Abs 0.76 10e9/L 08/05 Unknown COMPLETE BLOOD COUNT 3069977 Eosinophil Abs 0.26 10e9/L Unknown COMPLETE BLOOD COUNT 8511762 RDW-SD 46.3 fL 6 Unknown COMPLETE BLOOD COUNT [id number] Basophil Abs 0.01 10e9/L 08/05 Unknown GLYCOSYLATED HEMOGLOBIN TEST 77102 Hgb A1c 84332-1 6.1 % 0 08/31/2015 Unknown GFR CALC 2043451 GFR Non Afr Amr >60 mL/min 08/31/2015 Un known GFR CALC 3652671 GFR Afr Amr >60 mL/min 08/31/2015 Unknow n FREE T4 13859 T4 Free 1.21 ng/dL 08/31/2015 Unknown THYROID STIMULATING HORMONE 11809 TSH 2.988 uIU/mL 08/31/2015 Unknown COMPREHENSIVE METABOLIC 08442 AST 16 U/L 2015 Unknown COMPREHENSIVE METABOLIC 79960 ALT 19 U/L 2015 Unknown COMPREHENSIVE METABOLIC 38688 BUN 17 mg/dL 2015 Unknown COMPREHENSIVE METABOLIC 90676 ALBUMIN 4.3 g/dL 2015 Unknown COMPREHENSIVE METABOLIC 15515 CHLORIDE 107 mmol/L 08/30 Unknown COMPREHENSIVE METABOLIC 21472 Bili Total 0.4 mg/dL 08/30 Unknown COMPREHENSIVE METABOLIC 11231 ALK PHOS 66 U/L 2015 Unknown COMPREHENSIVE METABOLIC 80366 SODIUM 140 mmol/L 08/30 Unknown COMPREHENSIVE METABOLIC 09778 CREATININE 1.07 mg/dL 08/05 Unknown COMPREHENSIVE METABOLIC 54058 CALCIUM 9.5 mg/dL 2015 Unknown COMPREHENSIVE METABOLIC 15741 POTASSIUM 4.5 mmol/L 08/30 Unknown COMPREHENSIVE METABOLIC 30037 Total Protein 6.7 g/dL Unknown COMPREHENSIVE METABOLIC 00957 Glucose 122 mg/dL 2015 Unknown COMPREHENSIVE METABOLIC 98209 Bicarbonate 26 mmol/L 08/05 Unknown COMPREHENSIVE METABOLIC 28686 AGAP 7 mmol/L 2015 Unknown LIPID GROUP 08385 Cholesterol 171 mg/dL 08/31/2015 Unkno wn LIPID GROUP 92637 Triglyceride 428 mg/dL 08/31/2015 Unkn own LIPID GROUP 98506 HDL CHOLESTEROL 35 mg/dL 08/31/2015 U nknown LIPID GROUP 57685 Chol/HDL Ratio 4.89 ratio 08/31/2015 U nknown LIPID GROUP 76088 NON-HDL Chol 136 mg/dL 08/31/2015 Unkn own LIPID GROUP 82053 LDL Cholesterol 50 mg/dL 08/31/2015 U nknown PSA EQUIMOLAR JERSON 82822 PSA Total 0.47 ng/mL 6 Unknown GFR CALC 2706387 GFR AA >60 ML/MIN 01/12/2015 Unknown GFR CALC 7286091 GFR NON-AA >60 ML/MIN 01/12/2015 Unknown COMPREHENSIVE METABOLIC 50470 AST 18 U/L 2014 Unknown COMPREHENSIVE METABOLIC 43406 ALT 19 IU/L 2014 Unknown COMPREHENSIVE METABOLIC 31577 BUN 19 MG/DL 2014 Unknown COMPREHENSIVE METABOLIC 99526 ALBUMIN 4.7 GM/DL 2014 Unknown COMPREHENSIVE METABOLIC 36572 CHLORIDE 104 MMOL/L 01/12 Unknown COMPREHENSIVE METABOLIC 75603 BILI TOT 0.8 MG/DL 2014 Unknown COMPREHENSIVE METABOLIC 40216 ALK PHOS 58 U/L 2014 Unknown COMPREHENSIVE METABOLIC 96326 SODIUM 139 MMOL/L 01/12 Unknown COMPREHENSIVE METABOLIC 69833 CREATININE 1.09 MG/DL 12/2014 Unknown COMPREHENSIVE METABOLIC 08404 CALCIUM 9.6 MG/DL 2014 Unknown COMPREHENSIVE METABOLIC 18901 POTASSIUM 4.4 MMOL/L 01/12 Unknown COMPREHENSIVE METABOLIC 22126 PROT TOT 6.7 GM/DL 2014 Unknown COMPREHENSIVE METABOLIC 88866 Glucose 109 MG/DL 2014 Unknown COMPREHENSIVE METABOLIC 51033 BICARB 27 MMOL/L 2014 Unknown COMPREHENSIVE METABOLIC 80795 ANION GAP 8 MEQ/L 2014 Unknown LIPID GROUP 62006 HDL TEST 36 MG/DL 01/12/2015 Unknown LIPID GROUP 25316 TRIG 220 MG/DL 01/12/2015 Unknown LIPID GROUP 19644 TEST LDL 58 MG/DL 01/12/2015 Unknown LIPID GROUP 99332 CHOL 138 MG/DL 01/12/2015 Unknown LIPID GROUP 98238 RCHOL/HDL 3.83 RATIO 01/12/2015 Unknow n LIPID GROUP 34242 NON-HDL CH 102 MG/DL 01/12/2015 Unknow n GLYCOSYLATED HEMOGLOBIN TEST 23280 A1C HPLC 37686-9 6.1 % 1 Unknown COMPLETE BLOOD COUNT 6000711 WBC 7.1 10e9/L 01/13/20 15 Unknown COMPLETE BLOOD COUNT 2878617 RBC 4.38 10e12/L 2014 Unknown COMPLETE BLOOD COUNT 3403869 HGB 13.7 g/dL 5 Unknown COMPLETE BLOOD COUNT 2335637 HCT DET 41.3 % 5 Unknown COMPLETE BLOOD COUNT 8236696 MCV 94.3 fL 5 Unknown COMPLETE BLOOD COUNT 7321650 MCH 31.3 pg 5 Unknown COMPLETE BLOOD COUNT 8395404 MCHC 33.2 g/dL 5 Unknown COMPLETE BLOOD COUNT 4162001 PLT 174 10e9/L 01/13/20 15 Unknown COMPLETE BLOOD COUNT 2310681 MPV 11.8 fL 5 Unknown COMPLETE BLOOD COUNT 4496049 SAMIR % 61.3 % 5 Unknown COMPLETE BLOOD COUNT 6927525 LY % 28.3 % 5 Unknown COMPLETE BLOOD COUNT 1879310 MON % 7.6 % 5 Unknown COMPLETE BLOOD COUNT 7740157 EOS % 2.7 % 5 Unknown COMPLETE BLOOD COUNT 5945806 BASO % 0.1 % 5 Unknown COMPLETE BLOOD COUNT 6615700 RDW 13.1 % 5 Unknown COMPLETE BLOOD COUNT 1685323 ABS SAMIR 4.35 10e9/L 015 Unknown COMPLETE BLOOD COUNT 5636675 ABS LYMPH 2.01 10e9/L 015 Unknown COMPLETE BLOOD COUNT 4904721 ABS MONO 0.54 10e9/L 015 Unknown COMPLETE BLOOD COUNT 2143145 ABS EOS 0.19 10e9/L 015 Unknown COMPLETE BLOOD COUNT 4252086 ABS BASO 0.01 10e9/L 015 Unknown COMPLETE BLOOD COUNT 5568052 RDW-SD 43.9 fL 5 Unknown GLYCOSYLATED HEMOGLOBIN TEST 48531 A1C HPLC 89775-4 6.1 % 0 08/15/2014 Unknown COMPLETE BLOOD COUNT 1256347 WBC 9.7 10e9/L 08/16/19 15 Unknown COMPLETE BLOOD COUNT 1744254 RBC 4.29 10e12/L 2014 Unknown COMPLETE BLOOD COUNT 7851717 HGB 13.3 g/dL 5 Unknown COMPLETE BLOOD COUNT 3863350 HCT DET 40.5 % 5 Unknown COMPLETE BLOOD COUNT 6820911 MCV 94.4 fL 5 Unknown COMPLETE BLOOD COUNT 8165256 MCH 31.0 pg 5 Unknown COMPLETE BLOOD COUNT 2472115 MCHC 32.8 g/dL 5 Unknown COMPLETE BLOOD COUNT 0415621 PLT 227 10e9/L 08/16/19 15 Unknown COMPLETE BLOOD COUNT 6810943 MPV 11.0 fL 5 Unknown COMPLETE BLOOD COUNT 8430832 SAMIR % 66.4 % 5 Unknown COMPLETE BLOOD COUNT 1570620 LY % 23.7 % 5 Unknown COMPLETE BLOOD COUNT 9545846 MON % 8.1 % 5 Unknown COMPLETE BLOOD COUNT 3257401 EOS % 1.6 % 5 Unknown COMPLETE BLOOD COUNT 1111513 BASO % 0.2 % 5 Unknown COMPLETE BLOOD COUNT 1133864 RDW 13.4 % 5 Unknown COMPLETE BLOOD COUNT 0478185 ABS SAMIR 6.44 10e9/L 015 Unknown COMPLETE BLOOD COUNT 5664901 ABS LYMPH 2.30 10e9/L 015 Unknown COMPLETE BLOOD COUNT 9730743 ABS MONO 0.79 10e9/L 015 Unknown COMPLETE BLOOD COUNT 5987713 ABS EOS 0.16 10e9/L 015 Unknown COMPLETE BLOOD COUNT 5490825 ABS BASO 0.02 10e9/L 015 Unknown COMPLETE BLOOD COUNT 1963259 RDW-SD 44.7 fL 5 Unknown COMPREHENSIVE METABOLIC 25295 AST 17 U/L 2014 Unknown COMPREHENSIVE METABOLIC 90834 ALT 23 IU/L 2014 Unknown COMPREHENSIVE METABOLIC 49838 BUN 16 MG/DL 2014 Unknown COMPREHENSIVE METABOLIC 85143 ALBUMIN 4.3 GM/DL 2014 Unknown COMPREHENSIVE METABOLIC 73782 CHLORIDE 107 MMOL/L 08/15 Unknown COMPREHENSIVE METABOLIC 34442 BILI TOT 0.4 MG/DL 2014 Unknown COMPREHENSIVE METABOLIC 76212 ALK PHOS 91 U/L 2014 Unknown COMPREHENSIVE METABOLIC 73890 SODIUM 139 MMOL/L 08/15 Unknown COMPREHENSIVE METABOLIC 93464 CREATININE 1.07 MG/DL 08/04 Unknown COMPREHENSIVE METABOLIC 85728 CALCIUM 9.6 MG/DL 2014 Unknown COMPREHENSIVE METABOLIC 70930 POTASSIUM 4.6 MMOL/L 08/15 Unknown COMPREHENSIVE METABOLIC 80064 PROT TOT 6.7 GM/DL 2014 Unknown COMPREHENSIVE METABOLIC 36883 Glucose 111 MG/DL 2014 Unknown COMPREHENSIVE METABOLIC 41662 BICARB 27 MMOL/L 2014 Unknown COMPREHENSIVE METABOLIC 04517 ANION GAP 5 MEQ/L 2014 Unknown GFR CALC 3528303 GFR AA >60 ML/MIN 08/15/2014 Unknown GFR CALC 8665698 GFR NON-AA >60 ML/MIN 08/15/2014 Unknown THYROID STIMULATING HORMONE 86718 TSH 1.598 uIU/ML 08/15/2014 Unknown LIPID GROUP 02022 HDL TEST 33 MG/DL 08/15/2014 Unknown LIPID GROUP 54364 TRIG 187 MG/DL 08/15/2014 Unknown LIPID GROUP 26226 TEST LDL 58 MG/DL 08/15/2014 Unknown LIPID GROUP 43813 CHOL 128 MG/DL 08/15/2014 Unknown LIPID GROUP 35988 RCHOL/HDL 3.88 RATIO 08/15/2014 Unknow n LIPID GROUP 30568 NON-HDL CH 95 MG/DL 08/15/2014 Unknow n PSA EQUIMOLAR JERSON 85513 PSA EQ 0.70 NG/ML 5 Unknown FREE T4 16297 FREE T4 1.32 NG/DL 08/15/2014 Unknown GFR CALC 1787534 GFR AA >60 ML/MIN 12/14/2013 Unknown GFR CALC 6390949 GFR NON-AA 58.0L ML/MIN 12/14/2013 Unkno wn COMPLETE BLOOD COUNT 1164029 WBC 8.7 10e9/L 12/15/19 14 Unknown COMPLETE BLOOD COUNT 3267539 RBC 4.32 10e12/L 2013 Unknown COMPLETE BLOOD COUNT 9676325 HGB 13.5 g/dL 4 Unknown COMPLETE BLOOD COUNT 3195820 HCT DET 40.6 % 4 Unknown COMPLETE BLOOD COUNT 7410539 MCV 94.0 fL 4 Unknown COMPLETE BLOOD COUNT 0134382 MCH 31.3 pg 4 Unknown COMPLETE BLOOD COUNT 5840221 MCHC 33.3 g/dL 4 Unknown COMPLETE BLOOD COUNT 1803695 PLT 205 10e9/L 12/15/19 14 Unknown COMPLETE BLOOD COUNT 9746308 MPV 11.7 fL 4 Unknown COMPLETE BLOOD COUNT 1356225 SAMIR % 62.5 % 4 Unknown COMPLETE BLOOD COUNT 3006433 LY % 26.9 % 4 Unknown COMPLETE BLOOD COUNT 3869295 MON % 8.8 % 4 Unknown COMPLETE BLOOD COUNT 1973144 EOS % 1.7 % 4 Unknown COMPLETE BLOOD COUNT 1611851 BASO % 0.1 % 4 Unknown COMPLETE BLOOD COUNT 1832375 RDW 13.4 % 4 Unknown COMPLETE BLOOD COUNT 2421237 ABS SAMIR 5.44 10e9/L 014 Unknown COMPLETE BLOOD COUNT [id number] ABS LYMPH 2.34 10e9/L 014 Unknown COMPLETE BLOOD COUNT [id number] ABS MONO 0.77 10e9/L 014 Unknown COMPLETE BLOOD COUNT [id number] ABS EOS 0.15 10e9/L 014 Unknown COMPLETE BLOOD COUNT [id number] ABS BASO 0.01 10e9/L 014 Unknown COMPLETE BLOOD COUNT [id number] RDW-SD 44.7 fL 4 Unknown COMPREHENSIVE METABOLIC 31950 AST 14 U/L 2013 Unknown COMPREHENSIVE METABOLIC 17337 ALT 12 IU/L 2013 Unknown COMPREHENSIVE METABOLIC 65933 BUN 24 MG/DL 2013 Unknown COMPREHENSIVE METABOLIC 54532 ALBUMIN 4.5 GM/DL 2013 Unknown COMPREHENSIVE METABOLIC 40595 CHLORIDE 104 MMOL/L 12/14 Unknown COMPREHENSIVE METABOLIC 21140 BILI TOT 0.6 MG/DL 2013 Unknown COMPREHENSIVE METABOLIC 54529 ALK PHOS 82 U/L 2013 Unknown COMPREHENSIVE METABOLIC 79391 SODIUM 135 MMOL/L 12/14 Unknown COMPREHENSIVE METABOLIC 20881 CREATININE 1.25 MG/DL 12/05 Unknown COMPREHENSIVE METABOLIC 25192 CALCIUM 9.8 MG/DL 2013 Unknown COMPREHENSIVE METABOLIC 58983 POTASSIUM 4.7 MMOL/L 12/14 Unknown COMPREHENSIVE METABOLIC 37960 PROT TOT 6.7 GM/DL 2013 Unknown COMPREHENSIVE METABOLIC 66080 Glucose 126 MG/DL 2013 Unknown COMPREHENSIVE METABOLIC 50352 BICARB 27 MMOL/L 2013 Unknown COMPREHENSIVE METABOLIC 69777 ANION GAP 4 MEQ/L 2013 Unknown THYROID STIMULATING HORMONE 06187 TSH 3.281 uIU/ML 12/14/2013 Unknown FREE T4 54473 FREE T4 1.28 NG/DL 12/14/2013 Unknown LIPID GROUP 11001 HDL TEST 36 MG/DL 12/14/2013 Unknown LIPID GROUP 94283 TRIG 253 MG/DL 12/14/2013 Unknown LIPID GROUP 84669 TEST LDL 56 MG/DL 12/14/2013 Unknown LIPID GROUP 31806 CHOL 143 MG/DL 12/14/2013 Unknown LIPID GROUP 16705 RCHOL/HDL 3.97 RATIO 12/14/2013 Unknow n LIPID GROUP 89852 NON-HDL CH 107 MG/DL 12/14/2013 Unknow n GLYCOSYLATED HEMOGLOBIN TEST 53523 A1C HPLC 26952-1 6.1 % 0 12/14/2013 Unknown GLYCOSYLATED HEMOGLOBIN TEST 20964 A1C HPLC 51610-3 6.0 % 0 06/08/2013 Unknown LIPID GROUP 71613 HDL TEST 39 MG/DL 06/08/2013 Unknown LIPID GROUP 86998 TRIG 166 MG/DL 06/08/2013 Unknown LIPID GROUP 29665 TEST LDL 86 MG/DL 06/08/2013 Unknown LIPID GROUP 30025 CHOL 158 MG/DL 06/08/2013 Unknown LIPID GROUP 10382 RCHOL/HDL 4.05 RATIO 06/08/2013 Unknow n COMPREHENSIVE METABOLIC 66005 AST 17 U/L 2013 Unknown COMPREHENSIVE METABOLIC 84901 ALT 25 IU/L 2013 Unknown COMPREHENSIVE METABOLIC 15320 BUN 18 MG/DL 2013 Unknown COMPREHENSIVE METABOLIC 61188 ALBUMIN 4.5 GM/DL 2013 Unknown COMPREHENSIVE METABOLIC 20009 CHLORIDE 103 MMOL/L 06/08 Unknown COMPREHENSIVE METABOLIC 68773 BILI TOT 0.4 MG/DL 2013 Unknown COMPREHENSIVE METABOLIC 66348 ALK PHOS 72 U/L 2013 Unknown COMPREHENSIVE METABOLIC 15687 SODIUM 137 MMOL/L 06/08 Unknown COMPREHENSIVE METABOLIC 97728 CREATININE 1.07 MG/DL 08/2013 Unknown COMPREHENSIVE METABOLIC 73770 CALCIUM 9.7 MG/DL 2013 Unknown COMPREHENSIVE METABOLIC 58077 POTASSIUM 4.7 MMOL/L 06/08 Unknown COMPREHENSIVE METABOLIC 61674 PROT TOT 6.6 GM/DL 2013 Unknown COMPREHENSIVE METABOLIC 26852 Glucose 130 MG/DL 2013 Unknown COMPREHENSIVE METABOLIC 35334 BICARB 25 MMOL/L 2013 Unknown COMPREHENSIVE METABOLIC 60654 ANION GAP 9 MEQ/L 2013 Unknown FREE T4 49992 FREE T4 1.29 NG/DL 06/08/2013 Unknown THYROID STIMULATING HORMONE 35671 TSH 2.445 uIU/ML 06/08/2013 Unknown GFR CALC 5023663 GFR AA >60 ML/MIN 06/08/2013 Unknown GFR CALC 8993094 GFR NON-AA >60 ML/MIN 06/08/2013 Unknown COMPLETE BLOOD COUNT 3305888 WBC 8.2 10e9/L 06/09/19 14 Unknown COMPLETE BLOOD COUNT [id number] RBC 4.63 10e12/L 2013 Unknown COMPLETE BLOOD COUNT 1787860 HGB 14.1 g/dL 4 Unknown COMPLETE BLOOD COUNT 3507055 HCT DET 42.6 % 4 Unknown COMPLETE BLOOD COUNT 0319913 MCV 92.0 fL 4 Unknown COMPLETE BLOOD COUNT 5042874 MCH 30.5 pg 4 Unknown COMPLETE BLOOD COUNT 5335713 MCHC 33.1 g/dL 4 Unknown COMPLETE BLOOD COUNT 7981733 PLT 222 10e9/L 06/09/19 14 Unknown COMPLETE BLOOD COUNT 3201831 MPV 10.8 fL 4 Unknown COMPLETE BLOOD COUNT 2028507 SAMIR % 60.8 % 4 Unknown COMPLETE BLOOD COUNT 8711537 LY % 29.2 % 4 Unknown COMPLETE BLOOD COUNT 0466613 MON % 7.6 % 4 Unknown COMPLETE BLOOD COUNT 7877733 EOS % 2.3 % 4 Unknown COMPLETE BLOOD COUNT 0390693 BASO % 0.1 % 4 Unknown COMPLETE BLOOD COUNT 1772794 RDW 13.7 % 4 Unknown COMPLETE BLOOD COUNT 2621701 ABS SAMIR 4.99 10e9/L 014 Unknown COMPLETE BLOOD COUNT [id number] ABS LYMPH 2.39 10e9/L 014 Unknown COMPLETE BLOOD COUNT 2863664 ABS MONO 0.62 10e9/L 014 Unknown COMPLETE BLOOD COUNT [id number] ABS EOS 0.19 10e9/L 014 Unknown COMPLETE BLOOD COUNT 5493161 ABS BASO 0.01 10e9/L 014 Unknown COMPLETE BLOOD COUNT 9595329 RDW-SD 45.2 fL 4 Unknown LIPID GROUP 54709 HDL TEST 40 MG/DL 11/11/2012 Unknown LIPID GROUP 86244 TRIG 153 MG/DL 11/11/2012 Unknown LIPID GROUP 86742 TEST LDL 71 MG/DL 11/11/2012 Unknown LIPID GROUP 33185 CHOL 142 MG/DL 11/11/2012 Unknown LIPID GROUP 50606 RCHOL/HDL 3.55 RATIO 11/11/2012 Unknow n GFR CALC 8776171 GFR AA >60 ML/MIN 11/11/2012 Unknown GFR CALC 7644790 GFR NON-AA 57.0L ML/MIN 11/11/2012 Unkno wn HEMOGLOBIN A1C (GLYCOSYLATED) 6167970 A1C HPLC 72836-4 5.9 % 11/11/2012 Unknown THYROID STIMULATING HORMONE 04199 TSH 2.439 uIU/ML 11/11/2012 Unknown COMPLETE BLOOD COUNT 9963243 WBC 8.5 10e9/L 11/12/19 13 Unknown COMPLETE BLOOD COUNT 3536985 RBC 4.42 10e12/L 2012 Unknown COMPLETE BLOOD COUNT 6521649 HGB 13.7 g/dL 3 Unknown COMPLETE BLOOD COUNT 9314846 HCT DET 41.3 % 3 Unknown COMPLETE BLOOD COUNT 5059490 MCV 93.4 fL 3 Unknown COMPLETE BLOOD COUNT 6789591 MCH 31.0 pg 3 Unknown COMPLETE BLOOD COUNT 8617817 MCHC 33.2 g/dL 3 Unknown COMPLETE BLOOD COUNT 6795265 PLT 220 10e9/L 11/12/19 13 Unknown COMPLETE BLOOD COUNT 4659609 MPV 10.8 fL 3 Unknown COMPLETE BLOOD COUNT 7545504 SAMIR % 60.4 % 3 Unknown COMPLETE BLOOD COUNT 6189964 LY % 28.7 % 3 Unknown COMPLETE BLOOD COUNT 8670987 MON % 8.0 % 3 Unknown COMPLETE BLOOD COUNT 4642377 EOS % 2.8 % 3 Unknown COMPLETE BLOOD COUNT 2705780 BASO % 0.1 % 3 Unknown COMPLETE BLOOD COUNT 0748928 RDW 13.7 % 3 Unknown COMPLETE BLOOD COUNT 2174739 ABS SAMIR 5.13 10e9/L 013 Unknown COMPLETE BLOOD COUNT 4087290 ABS LYMPH 2.44 10e9/L 013 Unknown COMPLETE BLOOD COUNT 1308683 ABS MONO 0.68 10e9/L 013 Unknown COMPLETE BLOOD COUNT 9899362 ABS EOS 0.24 10e9/L 013 Unknown COMPLETE BLOOD COUNT 9290747 ABS BASO 0.01 10e9/L 013 Unknown COMPLETE BLOOD COUNT 7556763 RDW-SD 45.6 fL 3 Unknown COMPREHENSIVE METABOLIC 47531 AST 19 U/L 2012 Unknown COMPREHENSIVE METABOLIC 17421 ALT 28 IU/L 2012 Unknown COMPREHENSIVE METABOLIC 74591 BUN 31 MG/DL 2012 Unknown COMPREHENSIVE METABOLIC 90894 ALBUMIN 4.7 GM/DL 2012 Unknown COMPREHENSIVE METABOLIC 80441 CHLORIDE 106 MMOL/L 11/11 Unknown COMPREHENSIVE METABOLIC 76810 BILI TOT 0.5 MG/DL 2012 Unknown COMPREHENSIVE METABOLIC 79580 ALK PHOS 64 U/L 2012 Unknown COMPREHENSIVE METABOLIC 99572 SODIUM 136 MMOL/L 11/11 Unknown COMPREHENSIVE METABOLIC 69928 CREATININE 1.27 MG/DL 11/2012 Unknown COMPREHENSIVE METABOLIC 72844 CALCIUM 9.4 MG/DL 2012 Unknown COMPREHENSIVE METABOLIC 60088 POTASSIUM 4.9 MMOL/L 11/11 Unknown COMPREHENSIVE METABOLIC 86752 PROT TOT 6.7 GM/DL 2012 Unknown COMPREHENSIVE METABOLIC 45756 Glucose 108 MG/DL 2012 Unknown COMPREHENSIVE METABOLIC 75631 BICARB 21 MMOL/L 2012 Unknown COMPREHENSIVE METABOLIC 98833 ANION GAP 9 MEQ/L 2012 Unknown THYROID STIMULATING HORMONE 22397 TSH 2.572 uIU/ML 05/04/2012 Unknown COMPLETE BLOOD COUNT 3832755 WBC 9.3 10e9/L 05/04/19 13 Unknown COMPLETE BLOOD COUNT 0675151 RBC 4.43 10e12/L 2012 Unknown COMPLETE BLOOD COUNT 5952965 HGB 14.2 g/dL 3 Unknown COMPLETE BLOOD COUNT 7227242 HCT DET 41.1 % 3 Unknown COMPLETE BLOOD COUNT 2373268 MCV 92.8 fL 3 Unknown COMPLETE BLOOD COUNT 9041998 MCH 32.1 pg 3 Unknown COMPLETE BLOOD COUNT 8746835 MCHC 34.5 g/dL 3 Unknown COMPLETE BLOOD COUNT 7541209 PLT 193 10e9/L 05/04/19 13 Unknown COMPLETE BLOOD COUNT 1615727 MPV 10.8 fL 3 Unknown COMPLETE BLOOD COUNT 7864969 SAMIR % 63.0 % 3 Unknown COMPLETE BLOOD COUNT 5018182 LY % 25.3 % 3 Unknown COMPLETE BLOOD COUNT 5408831 MON % 9.1 % 3 Unknown COMPLETE BLOOD COUNT 7394698 EOS % 2.5 % 3 Unknown COMPLETE BLOOD COUNT 0718168 BASO % 0.1 % 3 Unknown COMPLETE BLOOD COUNT 6201743 RDW 12.6 % 3 Unknown COMPLETE BLOOD COUNT 0201219 ABS SAMIR 5.86 10e9/L 013 Unknown COMPLETE BLOOD COUNT 1526854 ABS LYMPH 2.35 10e9/L 013 Unknown COMPLETE BLOOD COUNT 7086531 ABS MONO 0.85 10e9/L 013 Unknown COMPLETE BLOOD COUNT 1005310 ABS EOS 0.23 10e9/L 013 Unknown COMPLETE BLOOD COUNT [id number] ABS BASO 0.01 10e9/L 013 Unknown COMPLETE BLOOD COUNT 7578587 RDW-SD 41.2 fL 3 Unknown LIPID GROUP 90956 HDL TEST 35 MG/DL 05/04/2012 Unknown LIPID GROUP 98589 TRIG 236 MG/DL 05/04/2012 Unknown LIPID GROUP 69699 TEST LDL 64 MG/DL 05/04/2012 Unknown LIPID GROUP 80904 CHOL 146 MG/DL 05/04/2012 Unknown LIPID GROUP 26273 RCHOL/HDL 4.17 RATIO 05/04/2012 Unknow n COMPREHENSIVE METABOLIC 38923 AST 23 U/L 2012 Unknown COMPREHENSIVE METABOLIC 04019 ALT 33 IU/L 2012 Unknown COMPREHENSIVE METABOLIC 80058 BUN 16 MG/DL 2012 Unknown COMPREHENSIVE METABOLIC 31461 ALBUMIN 4.8 GM/DL 2012 Unknown COMPREHENSIVE METABOLIC 28830 CHLORIDE 104 MMOL/L 05/04 Unknown COMPREHENSIVE METABOLIC 05968 BILI TOT 0.5 MG/DL 2012 Unknown COMPREHENSIVE METABOLIC 97269 ALK PHOS 70 U/L 2012 Unknown COMPREHENSIVE METABOLIC 09413 SODIUM 138 MMOL/L 05/04 Unknown COMPREHENSIVE METABOLIC 21497 CREATININE 1.08 MG/DL 04/07 Unknown COMPREHENSIVE METABOLIC 29733 CALCIUM 9.7 MG/DL 2012 Unknown COMPREHENSIVE METABOLIC 72764 POTASSIUM 4.4 MMOL/L 05/04 Unknown COMPREHENSIVE METABOLIC 94259 PROT TOT 6.8 GM/DL 2012 Unknown COMPREHENSIVE METABOLIC 65065 Glucose 114 MG/DL 2012 Unknown COMPREHENSIVE METABOLIC 30968 BICARB 27 MMOL/L 2012 Unknown COMPREHENSIVE METABOLIC 39002 ANION GAP 7 MEQ/L 2012 Unknown FREE T4 32570 FREE T4 1.11 NG/DL 05/04/2012 Unknown GFR CALC 0835861 GFR AA >60 ML/MIN 05/04/2012 Unknown GFR CALC 5446344 GFR NON-AA >60 ML/MIN 05/04/2012 Unknown GLYCOSYLATED HEMOGLOBIN TEST 81405 A1C HPLC 57384-7 5.8 % 0 10/29/2011 Unknown COMPREHENSIVE METABOLIC 77930 AST 17 U/L 2011 Unknown COMPREHENSIVE METABOLIC 09625 ALT 21 IU/L 2011 Unknown COMPREHENSIVE METABOLIC 61295 BUN 17 MG/DL 2011 Unknown COMPREHENSIVE METABOLIC 14408 ALBUMIN 4.8 GM/DL 2011 Unknown COMPREHENSIVE METABOLIC 38353 CHLORIDE 106 MMOL/L 10/28 Unknown COMPREHENSIVE METABOLIC 99092 BILI TOT 0.6 MG/DL 2011 Unknown COMPREHENSIVE METABOLIC 22260 ALK PHOS 57 U/L 2011 Unknown COMPREHENSIVE METABOLIC 04227 SODIUM 139 MMOL/L 10/28 Unknown COMPREHENSIVE METABOLIC 39129 CREATININE 1.08 MG/DL 10/05 Unknown COMPREHENSIVE METABOLIC 93657 CALCIUM 9.6 MG/DL 2011 Unknown COMPREHENSIVE METABOLIC 00183 POTASSIUM 4.4 MMOL/L 10/28 Unknown COMPREHENSIVE METABOLIC 38850 PROT TOT 6.9 GM/DL 2011 Unknown COMPREHENSIVE METABOLIC 11967 Glucose 104 MG/DL 2011 Unknown COMPREHENSIVE METABOLIC 00377 BICARB 25 MMOL/L 2011 Unknown COMPREHENSIVE METABOLIC 25370 ANION GAP 8 MEQ/L 2011 Unknown LIPID GROUP 28997 HDL TEST 39 MG/DL 10/29/2011 Unknown LIPID GROUP 29204 TRIG 176 MG/DL 10/29/2011 Unknown LIPID GROUP 04206 TEST LDL 70 MG/DL 10/29/2011 Unknown LIPID GROUP 34987 CHOL 144 MG/DL 10/29/2011 Unknown LIPID GROUP 56060 RCHOL/HDL 3.69 RATIO 10/29/2011 Unknow n GFR CALC 4479898 GFR AA >60 ML/MIN 10/29/2011 Unknown GFR CALC 1332029 GFR NON-AA >60 ML/MIN 10/29/2011 Unknown GFR CALC 7061242 GFR AA >60 ML/MIN 03/14/2011 Unknown GFR CALC 5765287 GFR NON-AA >60 ML/MIN 03/14/2011 Unknown GLYCOSYLATED HEMOGLOBIN TEST 83979 A1C HPLC 44879-5 5.7 % 1 05/15/2010 Unknown COMPREHENSIVE METABOLIC 17908 AST 18 U/L 2010 Unknown COMPREHENSIVE METABOLIC 32079 ALT 25 IU/L 2010 Unknown COMPREHENSIVE METABOLIC 64056 BUN 15 MG/DL 2010 Unknown COMPREHENSIVE METABOLIC 70887 ALBUMIN 4.6 GM/DL 2010 Unknown COMPREHENSIVE METABOLIC 98874 CHLORIDE 107 MMOL/L 03/14 Unknown COMPREHENSIVE METABOLIC 73183 BILI TOT 0.6 MG/DL 2010 Unknown COMPREHENSIVE METABOLIC 94246 ALK PHOS 54 U/L 2010 Unknown COMPREHENSIVE METABOLIC 76062 SODIUM 140 MMOL/L 03/14 Unknown COMPREHENSIVE METABOLIC 06187 CREATININE 1.02 MG/DL 12/2010 Unknown COMPREHENSIVE METABOLIC 47065 CALCIUM 9.4 MG/DL 2010 Unknown COMPREHENSIVE METABOLIC 35494 POTASSIUM 4.6 MMOL/L 03/14 Unknown COMPREHENSIVE METABOLIC 43948 PROT TOT 7.0 GM/DL 2010 Unknown COMPREHENSIVE METABOLIC 73138 Glucose 107 MG/DL 2010 Unknown COMPREHENSIVE METABOLIC 33142 BICARB 28 MMOL/L 2010 Unknown COMPREHENSIVE METABOLIC 73334 ANION GAP 5 MEQ/L 2010 Unknown LIPID GROUP 13181 HDL TEST 39 MG/DL 03/14/2011 Unknown LIPID GROUP 33873 TRIG 157 MG/DL 03/14/2011 Unknown LIPID GROUP 48601 TEST LDL 66 MG/DL 03/14/2011 Unknown LIPID GROUP 06478 CHOL 136 MG/DL 03/14/2011 Unknown LIPID GROUP 78778 RCHOL/HDL 3.49 RATIO 03/14/2011 Unknow n GFR CALC 2254939 GFR AA >60 ML/MIN 11/11/2010 Unknown GFR CALC 8799441 GFR NON-AA >60 ML/MIN 11/11/2010 Unknown LIPID GROUP 62252 HDL TEST 39 MG/DL 11/11/2010 Unknown LIPID GROUP 88350 TRIG 212 MG/DL 11/11/2010 Unknown LIPID GROUP 43670 TEST LDL 67 MG/DL 11/11/2010 Unknown LIPID GROUP 30767 CHOL 148 MG/DL 11/11/2010 Unknown LIPID GROUP 97151 RCHOL/HDL 3.79 RATIO 11/11/2010 Unknow n COMPREHENSIVE METABOLIC 44681 AST 17 U/L 2010 Unknown COMPREHENSIVE METABOLIC 10136 ALT 21 IU/L 2010 Unknown COMPREHENSIVE METABOLIC 84464 BUN 16 MG/DL 2010 Unknown COMPREHENSIVE METABOLIC 17291 ALBUMIN 4.6 GM/DL 2010 Unknown COMPREHENSIVE METABOLIC 18470 CHLORIDE 106 MMOL/L 11/11 Unknown COMPREHENSIVE METABOLIC 24006 BILI TOT 0.5 MG/DL 2010 Unknown COMPREHENSIVE METABOLIC 79468 ALK PHOS 61 U/L 2010 Unknown COMPREHENSIVE METABOLIC 48319 SODIUM 139 MMOL/L 11/11 Unknown COMPREHENSIVE METABOLIC 75427 CREATININE 1.00 MG/DL 11/2010 Unknown COMPREHENSIVE METABOLIC 01200 CALCIUM 9.5 MG/DL 2010 Unknown COMPREHENSIVE METABOLIC 45949 POTASSIUM 4.5 MMOL/L 11/11 Unknown COMPREHENSIVE METABOLIC 34337 PROT TOT 6.9 GM/DL 2010 Unknown COMPREHENSIVE METABOLIC 07458 Glucose 111 MG/DL 2010 Unknown COMPREHENSIVE METABOLIC 44995 BICARB 26 MMOL/L 2010 Unknown COMPREHENSIVE METABOLIC 09687 ANION GAP 7 MEQ/L 2010 Unknown HEMOGLOBIN A1C (GLYCOSYLATED) [address] [facility] 35902-7 5.6 % 07/24/2010 Unknown GFR CALC 5926112 GFR AA >60 ML/MIN 07/23/2010 Unknown GFR CALC 2985939 GFR NON-AA >60 ML/MIN 07/23/2010 Unknown COMPREHENSIVE METABOLIC 06163 AST 19 U/L 2010 Unknown COMPREHENSIVE METABOLIC 27197 ALT 33 IU/L 2010 Unknown COMPREHENSIVE METABOLIC 45183 BUN 14 MG/DL 2010 Unknown COMPREHENSIVE METABOLIC 12727 ALBUMIN 4.7 GM/DL 2010 Unknown COMPREHENSIVE METABOLIC 28992 CHLORIDE 107 MMOL/L 07/23 Unknown COMPREHENSIVE METABOLIC 84356 BILI TOT 0.4 MG/DL 2010 Unknown COMPREHENSIVE METABOLIC 97416 ALK PHOS 80 U/L 2010 Unknown COMPREHENSIVE METABOLIC 32210 SODIUM 141 MMOL/L 07/23 Unknown COMPREHENSIVE METABOLIC 61110 CREATININE 0.97 MG/DL 07/05 Unknown COMPREHENSIVE METABOLIC 63294 CALCIUM 9.5 MG/DL 2010 Unknown COMPREHENSIVE METABOLIC 44482 POTASSIUM 4.1 MMOL/L 07/23 Unknown COMPREHENSIVE METABOLIC 63003 PROT TOT 6.8 GM/DL 2010 Unknown COMPREHENSIVE METABOLIC 66214 Glucose 120 MG/DL 2010 Unknown COMPREHENSIVE METABOLIC 55004 BICARB 26 MMOL/L 2010 Unknown COMPREHENSIVE METABOLIC 73468 ANION GAP 8 MEQ/L 2010 Unknown LIPID GROUP 87858 HDL TEST 41 MG/DL 07/23/2010 Unknown LIPID GROUP 60599 TRIG 175 MG/DL 07/23/2010 Unknown LIPID GROUP 72709 TEST LDL 72 MG/DL 07/23/2010 Unknown LIPID GROUP 78772 CHOL 148 MG/DL 07/23/2010 Unknown LIPID GROUP 63751 RCHOL/HDL 3.61 RATIO 07/23/2010 Unknow n PSA FREE AND TOTAL 02201|16288 % FREE PSA FOOTNOTE % 011 Unknown PSA FREE AND TOTAL 09377|76809 XPSA TOTAL 0.83 NG/ML 011 Unknown PSA FREE AND TOTAL 52397|34579 XPSA FREE 0.13 NG/ML 04/26/19 11 Unknown VITAMIN D TOTAL (25 HYDROXY) 81652 VIT D TOTL 26 NG/ML 04/22/2010 Unknown TESTOSTERONE TOTAL 77249 TESTOS TO 387 NG/DL 04/19/2010 Unknown GFR CALC 6843266 GFR AA >60 ML/MIN 04/19/2010 Unknown GFR CALC 7087297 GFR NON-AA >60 ML/MIN 04/19/2010 Unknown COMPLETE BLOOD COUNT 77123 WBC 7.0 10e9/L 04/19/19 11 Unknown COMPLETE BLOOD COUNT 82552 RBC 5.07 10e12/L 2010 Unknown COMPLETE BLOOD COUNT 23144 HGB 15.6 g/dL 1 Unknown COMPLETE BLOOD COUNT 13460 HCT DET 46.2 % 1 Unknown COMPLETE BLOOD COUNT 46103 MCV 91.1 fL 1 Unknown COMPLETE BLOOD COUNT 02843 MCH 30.8 pg 1 Unknown COMPLETE BLOOD COUNT 73474 MCHC 33.8 g/dL 1 Unknown COMPLETE BLOOD COUNT 55411 PLT 205 10e9/L 04/19/19 11 Unknown COMPLETE BLOOD COUNT 88414 MPV 11.1 fL 1 Unknown COMPLETE BLOOD COUNT 77391 SAMIR % 62.4 % 1 Unknown COMPLETE BLOOD COUNT 99897 LY % 28.5 % 1 Unknown COMPLETE BLOOD COUNT 34712 MON % 6.9 % 1 Unknown COMPLETE BLOOD COUNT 76282 EOS % 2.1 % 1 Unknown COMPLETE BLOOD COUNT 25757 BASO % 0.1 % 1 Unknown COMPLETE BLOOD COUNT 17865 RDW 13.4 % 1 Unknown COMPLETE BLOOD COUNT 40174 ABS SAMIR 4.37 10e9/L 011 Unknown COMPLETE BLOOD COUNT 31975 ABS LYMPH 2.00 10e9/L 011 Unknown COMPLETE BLOOD COUNT 92658 ABS MONO 0.48 10e9/L 011 Unknown COMPLETE BLOOD COUNT 14310 ABS EOS 0.15 10e9/L 011 Unknown COMPLETE BLOOD COUNT 38485 ABS BASO 0.01 10e9/L 011 Unknown COMPLETE BLOOD COUNT 63826 RDW-SD 43.8 fL 1 Unknown LIPID GROUP 23125 HDL TEST 39 MG/DL 04/19/2010 Unknown LIPID GROUP 29202 TRIG 244 MG/DL 04/19/2010 Unknown LIPID GROUP 44227 TEST LDL 168 MG/DL 04/19/2010 Unknown LIPID GROUP 87316 CHOL 256 MG/DL 04/19/2010 Unknown LIPID GROUP 33144 RCHOL/HDL 6.56 RATIO 04/19/2010 Unknow n COMPREHENSIVE METABOLIC 04725 AST 28 U/L 2010 Unknown COMPREHENSIVE METABOLIC 41739 ALT 46 IU/L 2010 Unknown COMPREHENSIVE METABOLIC 48265 BUN 14 MG/DL 2010 Unknown COMPREHENSIVE METABOLIC 86900 ALBUMIN 4.9 GM/DL 2010 Unknown COMPREHENSIVE METABOLIC 50210 CHLORIDE 104 MMOL/L 04/19 Unknown COMPREHENSIVE METABOLIC 45227 BILI TOT 0.8 MG/DL 2010 Unknown COMPREHENSIVE METABOLIC 44074 ALK PHOS 71 U/L 2010 Unknown COMPREHENSIVE METABOLIC 83337 SODIUM 139 MMOL/L 04/19 Unknown COMPREHENSIVE METABOLIC 50959 CREATININE 1.06 MG/DL 04/06 Unknown COMPREHENSIVE METABOLIC 91291 CALCIUM 9.9 MG/DL 2010 Unknown COMPREHENSIVE METABOLIC 05161 POTASSIUM 4.3 MMOL/L 04/19 Unknown COMPREHENSIVE METABOLIC 17979 PROT TOT 7.2 GM/DL 2010 Unknown COMPREHENSIVE METABOLIC 28132 Glucose 99 MG/DL 2010 Unknown COMPREHENSIVE METABOLIC 34618 BICARB 28 MMOL/L 2010 Unknown COMPREHENSIVE METABOLIC 07410 ANION GAP 7 MEQ/L 2010 Unknown FREE T4 41242 FREE T4 1.26 NG/DL 04/19/2010 Unknown Procedures Procedure Codes Date ROUTINE VENIPUNCTURE CPT-4: 09338 05/24/2019 COMPREHEN METABOLIC PANEL CPT-4: 90003 05/24/2019 A1C HPLC CPT-4: 14894 05/24/2019 FLU VACC PRSV FREE INC ANTIG 65 AND OLDER CPT-4: 91891 01/26/2019 FLU VACC PRSV FREE INC ANTIG 65 AND OLDER CPT-4: 75839 01/26/2019 ADMIN INFLUENZA VIRUS VAC CPT-4: G0008 01/26/2019 ROUTINE VENIPUNCTURE CPT-4: 89094 01/26/2019 COMPREHEN METABOLIC PANEL CPT-4: 84615 01/26/2019 COMPLETE CBC W/AUTO DIFF WBC CPT-4: 09248 01/26/2019 LIPID PANEL CPT-4: 11687 01/26/2019 A1C HPLC CPT-4: 43996 01/26/2019 ROUTINE VENIPUNCTURE CPT-4: 93111 09/30/2018 METABOLIC PANEL TOTAL CA CPT-4: 60085 09/30/2018 URINALYSIS NONAUTO W/O SCOPE CPT-4: 64470 08/19/2018 URINE CULTURE/ COLONY COUNT CPT-4: 46285 08/19/2018 MICROALBUMIN QUANTITATIVE CPT-4: 63406 08/19/2018 ROUTINE VENIPUNCTURE CPT-4: 93950 08/16/2018 ASSAY THYROID STIM HORMONE CPT-4: 07322 08/16/2018 COMPREHEN METABOLIC PANEL CPT-4: 06556 08/16/2018 COMPLETE CBC W/AUTO DIFF WBC CPT-4: 61663 08/16/2018 LIPID PANEL CPT-4: 87446 08/16/2018 A1C HPLC CPT-4: 04725 08/16/2018 LIPID PANEL CPT-4: 64655 05/05/2018 COMPREHEN METABOLIC PANEL CPT-4: 81245 05/05/2018 ROUTINE VENIPUNCTURE CPT-4: 06729 05/05/2018 A1C HPLC CPT-4: 49207 05/05/2018 COMPLETE CBC W/AUTO DIFF WBC CPT-4: 14880 05/05/2018 ASSAY THYROID STIM HORMONE CPT-4: 36473 05/05/2018 MICROALBUMIN QUANTITATIVE CPT-4: 45858 01/19/2018 PRESCRIP TRANSMIT VIA ERX SY CPT-4: G8553 01/19/2018 ROUTINE VENIPUNCTURE CPT-4: 32694 01/13/2018 COMPREHEN METABOLIC PANEL CPT-4: 96681 01/13/2018 A1C HPLC CPT-4: 34855 01/13/2018 LIPID PANEL CPT-4: 96171 01/13/2018 ASSAY OF PSA TOTAL CPT-4: 23290 01/13/2018 ASSAY THYROID STIM HORMONE CPT-4: 69153 01/13/2018 ROUTINE VENIPUNCTURE CPT-4: 22422 10/06/2017 COMPREHEN METABOLIC PANEL CPT-4: 19162 10/06/2017 COMPLETE CBC W/AUTO DIFF WBC CPT-4: 45576 10/06/2017 LIPID PANEL CPT-4: 54615 10/06/2017 A1C HPLC CPT-4: 17417 10/06/2017 VITAMIN B-12 CPT-4: 89435 10/06/2017 DESTRUCT PREMALG LESION (Cryosurgery) CPT-4: 60800 DESTRUCT PREMALG LES 2-14 CPT-4: 40796 04/23/2017 PRESCRIP TRANSMIT VIA ERX SY CPT-4: G8553 03/11/2017 ROUTINE VENIPUNCTURE CPT-4: 24137 03/05/2017 ASSAY OF FREE THYROXINE CPT-4: 11648 03/05/2017 ASSAY THYROID STIM HORMONE CPT-4: 26947 03/05/2017 COMPREHEN METABOLIC PANEL CPT-4: 02750 03/05/2017 COMPLETE CBC W/AUTO DIFF WBC CPT-4: 09249 03/05/2017 LIPID PANEL CPT-4: 72416 03/05/2017 A1C HPLC CPT-4: 41943 03/05/2017 ROUTINE VENIPUNCTURE CPT-4: 41579 06/16/2016 ASSAY OF FREE THYROXINE CPT-4: 92736 06/16/2016 ASSAY THYROID STIM HORMONE CPT-4: 28599 06/16/2016 COMPREHEN METABOLIC PANEL CPT-4: 39065 06/16/2016 COMPLETE CBC W/AUTO DIFF WBC CPT-4: 93196 06/16/2016 LIPID PANEL CPT-4: 73167 06/16/2016 A1C HPLC CPT-4: 83546 06/16/2016 ROUTINE VENIPUNCTURE CPT-4: 52553 03/06/2016 ASSAY OF FREE THYROXINE CPT-4: 77719 03/06/2016 ASSAY THYROID STIM HORMONE CPT-4: 76642 03/06/2016 COMPREHEN METABOLIC PANEL CPT-4: 39235 03/06/2016 COMPLETE CBC W/AUTO DIFF WBC CPT-4: 93862 03/06/2016 LIPID PANEL CPT-4: 95411 03/06/2016 A1C HPLC CPT-4: 95210 03/06/2016 PRESCRIP TRANSMIT VIA ERX SY CPT-4: G8553 09/10/2015 PNEUMOCOCCAL VACC 23 ROSANNE IM CPT-4: 96249 09/06/2015 ADMIN PNEUMOCOCCAL VACCINE CPT-4: G0009 09/06/2015 ROUTINE VENIPUNCTURE CPT-4: 68745 08/31/2015 COMPREHEN METABOLIC PANEL CPT-4: 68666 08/31/2015 COMPLETE CBC W/AUTO DIFF WBC CPT-4: 46260 08/31/2015 LIPID PANEL CPT-4: 39642 08/31/2015 ASSAY OF PSA TOTAL CPT-4: 29913 08/31/2015 A1C HPLC CPT-4: 50914 08/31/2015 ASSAY OF FREE THYROXINE CPT-4: 90208 08/31/2015 ASSAY THYROID STIM HORMONE CPT-4: 86090 08/31/2015 PRESCRIP TRANSMIT VIA ERX SY CPT-4: G8553 06/29/2015 FLU VACC PRSV FREE INC ANTIG 65 AND OLDER CPT-4: 96084 01/17/2015 PNEUMOCOCCAL VACC 13 ROSANNE IM CPT-4: 51108 01/17/2015 ADMIN INFLUENZA VIRUS VAC CPT-4: G0008 01/17/2015 ADMIN PNEUMOCOCCAL VACCINE CPT-4: G0009 01/17/2015 DESTRUCT PREMALG LESION (Cryosurgery) CPT-4: 58789 PRESCRIP TRANSMIT VIA ERX SY CPT-4: G8553 01/17/2015 ROUTINE VENIPUNCTURE CPT-4: 07813 01/12/2015 COMPREHEN METABOLIC PANEL CPT-4: 57537 01/12/2015 COMPLETE CBC W/AUTO DIFF WBC CPT-4: 25787 01/12/2015 LIPID PANEL CPT-4: 43551 01/12/2015 A1C HPLC CPT-4: 01784 01/12/2015 DESTRUCT PREMALG LESION (Cryosurgery) CPT-4: 45080 ROUTINE VENIPUNCTURE CPT-4: 97895 08/15/2014 COMPREHEN METABOLIC PANEL CPT-4: 04455 08/15/2014 COMPLETE CBC W/AUTO DIFF WBC CPT-4: 63987 08/15/2014 LIPID PANEL CPT-4: 56050 08/15/2014 A1C HPLC CPT-4: 45772 08/15/2014 ASSAY OF PSA TOTAL CPT-4: 46751 08/15/2014 ASSAY OF FREE THYROXINE CPT-4: 40793 08/15/2014 ASSAY THYROID STIM HORMONE CPT-4: 60372 08/15/2014 ROUTINE VENIPUNCTURE CPT-4: 84426 12/14/2013 ASSAY OF FREE THYROXINE CPT-4: 62789 12/14/2013 ASSAY THYROID STIM HORMONE CPT-4: 92442 12/14/2013 COMPREHEN METABOLIC PANEL CPT-4: 54119 12/14/2013 COMPLETE CBC W/AUTO DIFF WBC CPT-4: 51835 12/14/2013 LIPID PANEL CPT-4: 62495 12/14/2013 A1C HPLC CPT-4: 76139 12/14/2013 ROUTINE VENIPUNCTURE CPT-4: 05693 06/08/2013 ASSAY OF FREE THYROXINE CPT-4: 61437 06/08/2013 ASSAY THYROID STIM HORMONE CPT-4: 40239 06/08/2013 COMPREHEN METABOLIC PANEL CPT-4: 94234 06/08/2013 COMPLETE CBC W/AUTO DIFF WBC CPT-4: 43695 06/08/2013 LIPID PANEL CPT-4: 44694 06/08/2013 A1C HPLC CPT-4: 91432 06/08/2013 ROUTINE VENIPUNCTURE CPT-4: 73206 11/11/2012 COMPREHEN METABOLIC PANEL CPT-4: 77751 11/11/2012 COMPLETE CBC W/AUTO DIFF WBC CPT-4: 14622 11/11/2012 LIPID PANEL CPT-4: 24523 11/11/2012 A1C GLYCOSYLATED HEMOGLOBIN TEST CPT-4: 91994 013 ASSAY THYROID STIM HORMONE CPT-4: 59163 11/11/2012 ROUTINE VENIPUNCTURE CPT-4: 96119 05/04/2012 ASSAY OF FREE THYROXINE CPT-4: 18891 05/04/2012 ASSAY THYROID STIM HORMONE CPT-4: 47789 05/04/2012 COMPREHEN METABOLIC PANEL CPT-4: 34663 05/04/2012 COMPLETE CBC W/AUTO DIFF WBC CPT-4: 58435 05/04/2012 LIPID PANEL CPT-4: 77373 05/04/2012 DESTRUCT PREMALG LESION (Cryosurgery) CPT-4: 71176 DESTRUCT PREMALG LES 2-14 CPT-4: 46465 03/02/2012 ROUTINE VENIPUNCTURE CPT-4: 02703 10/29/2011 COMPREHEN METABOLIC PANEL CPT-4: 51916 10/29/2011 LIPID PANEL CPT-4: 43643 10/29/2011 A1C GLYCOSYLATED HEMOGLOBIN TEST CPT-4: 50291 012 ROUTINE VENIPUNCTURE CPT-4: 20671 07/29/2011 COMPREHEN METABOLIC PANEL CPT-4: 83157 07/29/2011 LIPID PANEL CPT-4: 85403 07/29/2011 A1C GLYCOSYLATED HEMOGLOBIN TEST CPT-4: 60012 012 ROUTINE VENIPUNCTURE CPT-4: 83084 03/14/2011 COMPREHEN METABOLIC PANEL CPT-4: 05956 03/14/2011 LIPID PANEL CPT-4: 73192 03/14/2011 A1C GLYCOSYLATED HEMOGLOBIN TEST CPT-4: 04189 011 ROUTINE VENIPUNCTURE CPT-4: 45140 11/11/2010 COMPREHEN METABOLIC PANEL CPT-4: 92299 11/11/2010 LIPID PANEL CPT-4: 39565 11/11/2010 URINE CULTURE/ COLONY COUNT CPT-4: 49910 11/11/2010 URINALYSIS NONAUTO W/O SCOPE CPT-4: 41573 10/29/2010 URINE CULTURE/ COLONY COUNT CPT-4: 77082 10/29/2010 LIPID PANEL CPT-4: 30489 07/23/2010 COMPREHEN METABOLIC PANEL CPT-4: 27048 07/23/2010 ROUTINE VENIPUNCTURE CPT-4: 01092 07/23/2010 ROUTINE VENIPUNCTURE CPT-4: 69488 04/26/2010 PSA FREE AND TOTAL CPT-4: 06651|95279 04/26/2010 OCCULT BLOOD FECES CPT-4: 93276 04/24/2010 ROUTINE VENIPUNCTURE CPT-4: 27599 04/19/2010 COMPLETE CBC W/AUTO DIFF WBC CPT-4: 89575 04/19/2010 COMPREHEN METABOLIC PANEL CPT-4: 17373 04/19/2010 LIPID PANEL CPT-4: 13936 04/19/2010 TESTOSTERONE TOTAL - MALE CPT-4: 63973 04/19/2010 ASSAY THYROID STIM HORMONE CPT-4: 93424 04/19/2010 ASSAY OF FREE THYROXINE CPT-4: 65039 04/19/2010 VITAMIN D TOTAL (25 HYDROXY) CPT-4: 71694 04/19/2010 Vital Signs Date Vital 01/31/2019 Blood [...] 1: 112/70 Code: 8480-6 BMI: 28.9 Code: 35346-6 Heart Rate 1: 60 bpm Height: 6'3" Respiratory Rate: 20 bpm SpO2: 95% Tempera ture: 36.6 (C) / 97.9 (F) Weight: 231 lbs 01/19/2018 Blood Pressure 1: 150/82 Code: 8480-6 Heart Rate 1: 63 bpm Respiratory Rate: 18 bpm SpO2: 98% Temperature: 36.0 (C) / 96.8 (F) We ight: 225 lbs 10/15/2017 Blood Pressure 1: 126/82 Code: 8480-6 BMI: 27.9 Code: 07174-1 Heart Rate 1: 64 bpm Height: 6'3" Respiratory Rate: 20 bpm SpO2: 96% Tempera ture: 36.7 (C) / 98.1 (F) Weight: 223 lbs 04/23/2017 Blood Pressure 1: 136/74 Code: 8480-6 BMI: 28.7 Code: 00893-7 Heart Rate 1: 76 bpm Height: 6'3" Respiratory Rate: 20 bpm Temperature: 37 .0 (C) / 98.6 (F) Weight: 230 lbs 03/11/2017 Blood Pressure 1: 136/66 Code: 8480-6 BMI: 28.6 Code: 81204-8 Heart Rate 1: 60 bpm Height: 6'3" Respiratory Rate: 20 bpm Temperature: 36 .7 (C) / 98.1 (F) Weight: 229 lbs 07/09/2016 Blood Pressure 1: 132/80 Code: 8480-6 BMI: 27.7 Code: 26169-8 Heart Rate 1: 64 bpm Height: 6'3" Respiratory Rate: 20 bpm SpO2: 96% Tempera ture: 36.9 (C) / 98.4 (F) Weight: 222 lbs 03/10/2016 Blood Pressure 1: 134/78 Code: 8480-6 BMI: 28.5 Code: 79720-5 Heart Rate 1: 60 bpm Height: 6'3" Respiratory Rate: 20 bpm SpO2: 96% Tempera ture: 36.7 (C) / 98.1 (F) Weight: 228 lbs 09/12/2015 Blood Pressure 1: 13678 Code: 8480-6 Heart Rate 1: 84 bpm Height: Respiratory Rate: 24 bpm SpO2: 97% Temperature: 36.4 (C) / 97.6 (F) We ight: 09/10/2015 Blood Pressure 1: 124/76 Code: 8480-6 BMI: 28.5 Code: 39688-0 Heart Rate 1: 76 bpm Height: 6'3" Respiratory Rate: 24 bpm SpO2: 97% Tempera ture: 36.4 (C) / 97.6 (F) Weight: 228 lbs 09/06/2015 Blood Pressure 1: 12482 Code: 8480-6 BMI: 29.0 Code: 30777-1 Heart Rate 1: 66 bpm Height: 6'3" Respiratory Rate: 20 bpm SpO2: 97% Tempera ture: 36.4 (C) / 97.6 (F) Weight: 232 lbs 06/29/2015 Blood Pressure 1: 124/82 Code: 8480-6 Heart Rate 1: 88 bpm Height: Respiratory Rate: 20 bpm Temperature: 36.7 (C) / 98.1 (F) Weight: 01/17/2015 Blood Pressure 1: 124/78 Code: 8480-6 BMI: 27.7 Code: 98216-6 Heart Rate 1: 76 bpm Height: 6'3" Respiratory Rate: 20 bpm Temperature: 36 .6 (C) / 97.8 (F) Weight: 222 lbs 09/19/2014 Blood Pressure 1: 128/80 Code: 8480-6 BMI: 27.4 Code: 85461-5 Heart Rate 1: 64 bpm Height: 6'3" Respiratory Rate: 20 bpm Temperature: 36 .4 (C) / 97.6 (F) Weight: 219 lbs 10/17/2013 Blood Pressure 1: 116/70 Code: 8480-6 Heart Rate 1: 88 bpm Respiratory Rate: 20 bpm Temperature: 36.9 (C) / 98.4 (F) Weight: 220 lbs 09/23/2013 Blood Pressure 1: 124/80 Code: 8480-6 BMI: 28.7 Code: 12644-5 Heart Rate 1: 76 bpm Height: 6'3" Respiratory Rate: 20 bpm Temperature: 36 .8 (C) / 98.2 (F) Weight: 230 lbs 07/22/2013 Blood Pressure 1: 128/70 Code: 8480-6 He art Rate 1: 78 bpm 06/20/2013 Blood Pressure 1: 144/86 Code: 8480-6 BMI: 28.7 Code: 04876-1 Heart Rate 1: 92 bpm Height: 6'3" Respiratory Rate: 20 bpm Temperature: 36 .4 (C) / 97.6 (F) Weight: 230 lbs 11/25/2012 Blood Pressure 1: 128/80 Code: 8480-6 BMI: 27.5 Code: 72151-7 Heart Rate 1: 92 bpm Height: 6'3" Respiratory Rate: 20 bpm Temperature: 36 .8 (C) / 98.3 (F) Weight: 220 lbs 08/27/2012 Blood Pressure 1: 142/80 Code: 8480-6 BMI: 27.7 Code: 40497-8 Heart Rate 1: 76 bpm Height: 6'3" Respiratory Rate: 20 bpm Temperature: 36 .8 (C) / 98.3 (F) Weight: 222 lbs 05/11/2012 Blood Pressure 1: 136/80 Code: 8480-6 BMI: 27.7 Code: 19697-3 Heart Rate 1: 76 bpm Height: 6'3" Respiratory Rate: 20 bpm Temperature: 36 .8 (C) / 98.3 (F) Weight: 222 lbs 03/02/2012 Blood Pressure 1: 136/70 Code: 8480-6 BMI: 28.0 Code: 57755-8 Heart Rate 1: 80 bpm Height: 6'3" Respiratory Rate: 20 bpm Temperature: 36 .6 (C) / 97.8 (F) Weight: 224 lbs 12/11/2011 Blood Pressure 1: 142/80 Code: 8480-6 BMI: 27.1 Code: 11066-0 Heart Rate 1: 84 bpm Height: 6'3" Respiratory Rate: 20 bpm Temperature: 36 .9 (C) / 98.4 (F) Weight: 217 lbs 08/14/2011 Blood Pressure 1: 130/82 Code: 8480-6 He art Rate 1: 64 bpm 07/29/2011 Blood Pressure 1: 132/64 Code: 8480-6 BMI: 26.7 Code: 31057-4 Heart Rate 1: 72 bpm Height: 6'3" [...] 1: 142/88 Code: 8480-6 BMI: 26.4 Code: 78054-3 Heart Rate 1: 80 bpm Height: 6'3" [...] labs Encounters Encounter Performer Location Codes Date ([id number]) NURSE/OUTPATIENT VISIT EST Diagnosis: Type 2 diabetes mellitus without complications[ICD10: E11.9] Diagnosis: Essential (primary) hypertension[ICD10: I10] Diagnosis: Mixed hyperlipidemia[ICD10: E78.2] Najma OG [facility] CPT-4: 73427 05/24/2019 ([id number]) OFFICE/OUTPATIENT VISIT EST Diagnosis: Essential (primary) hypertension[ICD10: I10] Diagnosis: Type 2 diabetes mellitus without complications[ICD10: E11.9] Diagnosis: Mixed hyperlipidemia[ICD10: E78.2] Najma OG [facility] CPT-4: 60378 01/31/2019 ([id number]) NURSE/OUTPATIENT VISIT EST Diagnosis: Mixed hyperlipidemia[ICD10: E78.2] Diagnosis: Type 2 diabetes mellitus without complications[ICD10: E11.9] Diagnosis: Essential (primary) hypertension[ICD10: I10] Diagnosis: Chronic kidney disease, unspecified[ICD10: N18.9] Najma OG DO [facility] CPT-4: 07012 01/26/2019 ([id number]) NURSE/OUTPATIENT VISIT EST Diagnosis: Chronic kidney disease, unspecified[ICD10: N18.9] Diagnosis: Essential (primary) hypertension[ICD10: I10] Najma OG [facility] CPT-4: 96514 09/30/2018 ([id number]) OFFICE/OUTPATIENT VISIT EST Diagnosis: Essential (primary) hypertension[ICD10: I10] Diagnosis: Type 2 diabetes mellitus without complications[ICD10: E11.9] Diagnosis: Mixed hyperlipidemia[ICD10: E78.2] Diagnosis: Unspecified kidney failure[ICD10: N19] Najma HAQUE ADELA Matilda OG [facility] CPT-4: 51503 08/19/2018 ([id number]) NURSE/OUTPATIENT VISIT EST Diagnosis: Essential (primary) hypertension[ICD10: I10] Diagnosis: Type 1 diabetes mellitus with unspecified complications[ICD10: E10.8] Diagnosis: Mixed hyperlipidemia[ICD10: E78.2] Najma OG [facility] CPT-4: 37720 08/16/2018 ([id number]) OFFICE/OUTPATIENT VISIT EST Diagnosis: Essential (primary) hypertension[ICD10: I10] Diagnosis: Type 2 diabetes mellitus without complications[ICD10: E11.9] Diagnosis: Mixed hyperlipidemia[ICD10: E78.2] Najma OG [email or web address] CPT-4: 55739 05/10/2018 ([id number]) NURSE/OUTPATIENT VISIT EST Diagnosis: Essential (primary) hypertension[ICD10: I10] Diagnosis: Mixed hyperlipidemia[ICD10: E78.2] Diagnosis: Type 1 diabetes mellitus with unspecified complications[ICD10: E10.8] Najma OG DO [employer] CPT-4: 63315 05/05/2018 ([id number]) OFFICE/OUTPATIENT VISIT EST Diagnosis: Type 2 diabetes mellitus without complications[ICD10: E11.9] Diagnosis: Mixed hyperlipidemia[ICD10: E78.2] Diagnosis: Nicotine dependence, unspecified, uncomplicated[ICD10: F17.200] Diagnosis: Essential (primary) hypertension[ICD10: I10] Najma OG [email or web address] CPT-4: 26529 01/19/2018 ([id number]) NURSE/OUTPATIENT VISIT EST Diagnosis: Type 1 diabetes mellitus with unspecified complications[ICD10: E10.8] Diagnosis: Essential (primary) hypertension[ICD10: I10] Diagnosis: Male erectile disorder[ICD10: F52.21] Diagnosis: Encounter for screening for malignant neoplasm of prostate[ICD10: Z12.5] Najma OG [email or web address] CPT-4: 49725 01/13/2018 ([id number]) OFFICE/OUTPATIENT VISIT EST Diagnosis: Type 2 diabetes mellitus without complications[ICD10: E11.9] Diagnosis: Essential (primary) hypertension[ICD10: I10] Diagnosis: Mixed hyperlipidemia[ICD10: E78.2] Najma OG [email or web address] CPT-4: 89940 10/15/2017 ([id number]) NURSE/OUTPATIENT VISIT EST Diagnosis: Type 2 diabetes mellitus without complications[ICD10: E11.9] Diagnosis: Mixed hyperlipidemia[ICD10: E78.2] Diagnosis: Essential (primary) hypertension[ICD10: I10] Diagnosis: Glossitis[ICD10: K14.0] Najma THAKKAR [email or web address] CPT-4: 17071 10/06/2017 ([id number]) OFFICE/OUTPATIENT VISIT EST Diagnosis: Type 2 diabetes mellitus without complications[ICD10: E11.9] Diagnosis: Mixed hyperlipidemia[ICD10: E78.2] Diagnosis: Essential (primary) hypertension[ICD10: I10] Najma OG [email or web address] CPT-4: 25636 03/11/2017 ([id number]) OFFICE/OUTPATIENT VISIT EST Diagnosis: Type 1 diabetes mellitus with unspecified complications[ICD10: E10.8] Diagnosis: Mixed hyperlipidemia[ICD10: E78.2] Diagnosis: Essential (primary) hypertension[ICD10: I10] Diagnosis: Other fatigue[ICD10: R53.83] Najma OG [email or web address] CPT-4: 44164 03/05/2017 ([id number]) OFFICE/OUTPATIENT VISIT EST Diagnosis: Type 2 diabetes mellitus without complications[ICD10: E11.9] Diagnosis: Mixed hyperlipidemia[ICD10: E78.2] Diagnosis: Essential (primary) hypertension[ICD10: I10] Diagnosis: Nicotine dependence, unspecified, uncomplicated[ICD10: F17.200] Najma OG [email or web address] CPT-4: 70740 07/09/2016 ([id number]) OFFICE/OUTPATIENT VISIT EST Diagnosis: Type 1 diabetes mellitus with unspecified complications[ICD10: E10.8] Diagnosis: Mixed hyperlipidemia[ICD10: E78.2] Diagnosis: Essential (primary) hypertension[ICD10: I10] Najma OG [email or web address] CPT-4: 59315 06/16/2016 ([id number]) OFFICE/OUTPATIENT VISIT EST Diagnosis: Type 2 diabetes mellitus without complications[ICD10: E11.9] Diagnosis: Mixed hyperlipidemia[ICD10: E78.2] Diagnosis: Essential (primary) hypertension[ICD10: I10] Najma OG [email or web address] CPT-4: 54580 03/10/2016 ([id number]) OFFICE/OUTPATIENT VISIT EST Diagnosis: Type 1 diabetes mellitus with unspecified complications[ICD10: E10.8] Diagnosis: Mixed hyperlipidemia[ICD10: E78.2] Diagnosis: Essential (primary) hypertension[ICD10: I10] Najma OG [facility] CPT-4: 48539 03/06/2016 ([id number]) OFFICE/OUTPATIENT VISIT EST Diagnosis: Bitten or stung by nonvenomous insect and other nonvenomous arthropods, subsequent encounter[ICD10: W57.XXXD] Diagnosis: Insect bite (nonvenomous), right thigh, subsequent encounter[ICD10: S70.361D] Barbara Brower NAJMA Matilda LONG [facility] CPT-4: 55200 11/2015 ([id number]) OFFICE/OUTPATIENT VISIT EST Diagnosis: Bitten or stung by nonvenomous insect and other nonvenomous arthropods, initial encounter[ICD10: W57.XXXA] Diagnosis: Insect bite (nonvenomous), right thigh, initial encounter[ICD10: S70.361A] Barbara Brower NAJMA AmeenaMatilde MERCEDES [facility] CPT-4: 84047 09/2015 ([id number]) OFFICE/OUTPATIENT VISIT EST Diagnosis: Mixed hyperlipidemia[ICD10: E78.2] Diagnosis: Essential (primary) hypertension[ICD10: I10] Diagnosis: Type 2 diabetes mellitus without complications[ICD10: E11.9] Diagnosis: Encounter for immunization[ICD10: Z23] Diagnosis: Encounter for screening for malignant neoplasm of colon[ICD10: Z12.11] Diagnosis: Abnormal weight gain[ICD10: R63.5] Barbara Brower ANUM GODINEZ Matilda LONG [facility] CPT-4: 52902 09/06/2015 ([id number]) OFFICE/OUTPATIENT VISIT EST Diagnosis: Type 2 diabetes mellitus without complications[ICD10: E11.9] Diagnosis: Mixed hyperlipidemia[ICD10: E78.2] Diagnosis: Essential (primary) hypertension[ICD10: I10] Diagnosis: Encounter for screening for malignant neoplasm of prostate[ICD10: Z12.5] Diagnosis: Other fatigue[ICD10: R53.83] Najma MCARTHUR AmeenaMatilde MERCEDES [facility] CPT-4: 98689 08/31/2015 OFFICE/OUTPATIENT VISIT EST Diagnosis: Diarrhea, unspecified[ICD10: R19.7] Henrietta MCCOY [employer] [facility] CPT-4: 92375 06/29/2015 OFFICE/OUTPATIENT VISIT EST Diagnosis: PNEUMOCOCCAL VACCINE[ICD10: Z23] Diagnosis: FLU VACCINE[ICD10: Z23] Diagnosis: Essential (primary) hypertension[ICD10: I10] Diagnosis: Mixed hyperlipidemia[ICD10: E78.2] Diagnosis: Type 1 diabetes mellitus with unspecified complications[ICD10: E10.8] Diagnosis: Actinic keratosis[ICD10: L57.0] Najma MANUELLINE Matilda OG [facility] CPT-4: 04910 01/17/2015 ([id number]) OFFICE/OUTPATIENT VISIT EST Diagnosis: Type 2 diabetes mellitus without complications[ICD10: E11.9] Diagnosis: Impaired fasting glucose[ICD10: R73.01] Diagnosis: Mixed hyperlipidemia[ICD10: E78.2] Diagnosis: Essential (primary) hypertension[ICD10: I10] Najma Heverlane NAJMA Matilda OG [employer] CPT-4: 08845 01/12/2015 ([id number]) OFFICE/OUTPATIENT VISIT EST Diagnosis: - I - HYPERLIPIDEMIA NEC/NOS[ICD9: 272.4] Diagnosis: HYPERTENSION[ICD9: 401.9] Diagnosis: DM W/O COMPLICATION TYPE II[ICD9: 250.00] Diagnosis: ACTINIC KERATOSIS[ICD9: 702.0] Najma Heverlane MCARTHUR Ameena Clayton [employer] CPT-4: 31227 09/19/2014 ([id number]) OFFICE/OUTPATIENT VISIT EST Diagnosis: HYPERLIPIDEMIA NEC/NOS[ICD9: 272.4] Diagnosis: HYPERTENSION[ICD9: 401.9] Diagnosis: IMPAIRED FASTING GLUCOSE[ICD9: 790.21] Diagnosis: MALAISE AND FATIGUE[ICD9: 780.79] Najma Jenkins Matilda [employer] CPT-4: 50263 08/15/2014 ([id number]) OFFICE/OUTPATIENT VISIT EST Diagnosis: HYPERLIPIDEMIA NEC/NOS[ICD9: 272.4] Diagnosis: HYPERTENSION[ICD9: 401.9] Diagnosis: IMPAIRED FASTING GLUCOSE[ICD9: 790.21] Najma CHAPMAN Matilda [employer] CPT-4: 32925 12/14/2013 ([id number]) OFFICE/OUTPATIENT VISIT EST Diagnosis: Post herpetic neuralgia[ICD9: 053.19] Najma Kathleenpepperbijan OG [facility] CPT-4: 64139 10/17/2013 OFFICE/OUTPATIENT VISIT EST Diagnosis: Shingles[ICD9: 053.9] Diagnosis: Post herpetic neuralgia[ICD9: 053.19] [facility]: 80603 09/23/2013 ([id number]) OFFICE/OUTPATIENT VISIT EST Diagnosis: HYPERTENSION[ICD9: 401.9] Diagnosis: HYPERLIPIDEMIA NEC/NOS[ICD9: 272.4] Diagnosis: IMPAIRED FASTING GLUCOSE[ICD9: 790.21] Najma Kathleenpepperbijan [facility]: 20636 06/20/2013 ([id number]) OFFICE/OUTPATIENT VISIT EST Diagnosis: HYPERLIPIDEMIA NEC/NOS[ICD9: 272.4] Diagnosis: MALAISE AND FATIGUE[ICD9: 780.79] Diagnosis: ROUTINE MEDICAL EXAM[ICD9: V70.0] Diagnosis: HYPERTENSION[ICD9: 401.9] Diagnosis: IMPAIRED FASTING GLUCOSE[ICD9: 790.21] Najma Heverpepperbijan ABBOTTQ ADELA LONG [facility] CPT-4: 08123 06/08/2013 ([id number]) OFFICE/OUTPATIENT VISIT EST Diagnosis: HYPERLIPIDEMIA NEC/NOS[ICD9: 272.4] Diagnosis: HYPERTENSION[ICD9: 401.9] Diagnosis: IMPAIRED FASTING GLUCOSE[ICD9: 790.21] Diagnosis: DIARRHEA[ICD9: 787.91] Najma MCARTHUR AmeenaMatilde BRITTNI Stallings [facility] CPT-4: 44104 11/25/2012 ([id number]) OFFICE/OUTPATIENT VISIT EST Diagnosis: HYPERLIPIDEMIA NEC/NOS[ICD9: 272.4] Diagnosis: HYPERTENSION[ICD9: 401.9] Diagnosis: IMPAIRED FASTING GLUCOSE[ICD9: 790.21] Diagnosis: MALAISE AND FATIGUE[ICD9: 780.79] Najma Jenkins Matilda LONG [facility] CPT-4: 23647 11/11/2012 OFFICE/OUTPATIENT VISIT EST Diagnosis: Fungal dermatitis[ICD9: 111.9] Diagnosis: Dry skin dermatitis[ICD9: 692.89] Henrietta Sow-Fernandez FILI OG DO [facility] CPT-4: 14926 08/27/2012 ([id number]) OFFICE/OUTPATIENT VISIT EST Diagnosis: HYPERTENSION[ICD9: 401.9] Diagnosis: HYPERLIPIDEMIA NEC/NOS[ICD9: 272.4] Najma OG DO [facility] CPT-4: 58583 05/11/2012 ([id number]) OFFICE/OUTPATIENT VISIT EST Diagnosis: HYPERLIPIDEMIA NEC/NOS[ICD9: 272.4] Diagnosis: HYPERTENSION[ICD9: 401.9] Diagnosis: ROUTINE MEDICAL EXAM[ICD9: V70.0] Najma OG DO [facility] CPT-4: 14833 05/04/2012 ([id number]) OFFICE/OUTPATIENT VISIT EST Diagnosis: HYPERTENSION[ICD9: 401.9] Diagnosis: HYPERLIPIDEMIA NEC/NOS[ICD9: 272.4] Diagnosis: IMPAIRED FASTING GLUCOSE[ICD9: 790.21] Najma OG DO [facility] CPT-4: 13210 12/11/2011 ([id number]) OFFICE/OUTPATIENT VISIT EST Diagnosis: HYPERLIPIDEMIA NEC/NOS[ICD9: 272.4] Diagnosis: HYPERTENSION[ICD9: 401.9] Diagnosis: IMPAIRED FASTING GLUCOSE[ICD9: 790.21] Najma OG DO [facility] CPT-4: 72519 10/29/2011 ([id number]) OFFICE/OUTPATIENT VISIT EST Diagnosis: HYPERTENSION[ICD9: 401.9] Najma PAYAN DO [facility] CPT-4: 94820 08/14/2011 ([id number]) OFFICE/OUTPATIENT VISIT EST Diagnosis: HYPERTENSION[ICD9: 401.9] Diagnosis: IMPAIRED FASTING GLUCOSE[ICD9: 790.21] Najma KATHLEENNDBIJAN WADE [facility] CPT-4: 59697 07/29/2011 ([id number]) OFFICE/OUTPATIENT VISIT EST Diagnosis: HYPERTENSION[ICD9: 401.9] Najma ZARATER [facility] CPT-4: 43050 07/23/2011 ([id number]) OFFICE/OUTPATIENT VISIT EST Diagnosis: HYPERTENSION[ICD9: 401.9] Najma ZARATER [employer] CPT-4: 72072 06/24/2011 OFFICE/OUTPATIENT VISIT EST Diagnosis: HYPERTENSION[ICD9: 401.9] Najma ZARATER DO [employer] CPT-4: 90280 05/20/2011 OFFICE/OUTPATIENT VISIT EST Diagnosis: HYPERTENSION[ICD9: 401.9] Najma KATHLEEN NDER DO [employer] CPT-4: 29927 04/15/2011 OFFICE/OUTPATIENT VISIT EST Diagnosis: HYPERLIPIDEMIA NEC/NOS[ICD9: 272.4] Diagnosis: IMPAIRED FASTING GLUCOSE[ICD9: 790.21] Najma KATHLEENNDER [employer] CPT-4: 03390 03/18/2011 ([id number]) OFFICE/OUTPATIENT VISIT EST Najma LONGER [employer] CPT-4: 02188 07/30/2010 ([id number]) PREV VISIT, EST, AGE 40-64 Najma OG DO [employer] CPT-4: 85417 04/24/2010 Plan of Care Planned Activity Notes [...] : I10 01/31/2019 Appointment: Najma Og WPtel: [address] [place], [place] [id number] [place] FOLLOW UP 01/31/2019 Appointment: [facility] [phone] [facility] [facility] 01/26/2019 Appointment: Najma Og WPtel: [address] [place], [place] [phone] US LAB 09/30/2018 Visit Diagnosis Plan: Unspecified [...] : E11.9 08/19/2018 Appointment: Najma Og WPtel: [address] [place] [address] US FOLLOW UP 08/19/2018 Appointment: Najma Og WPtel: [address] [place] [address] US LAB 08/16/2018 Visit Diagnosis Plan: Type [...] : I10 05/10/2018 Appointment: Najma Og WPtel: [address] [place], [place] [phone] US FOLLOW UP 05/10/2018 Patient Education: Low Back Pain Exercises: Illustration Completed 05/10/2018 Patient Education: Low Back Pain Exercises Completed 05/10/2018 Appointment: Najma Og WPtel: [address] [place], [place] [phone] US LAB 05/05/2018 Visit Diagnosis Plan: Type [...] : E78.2 01/19/2018 Appointment: Najma Og WPtel: [address] [place] [address] FOLLOW UP 01/19/2018 Patient Education: Patient Medication Summary Completed 01/19/2018 Appointment: Najma Og WPtel: [address] [place], [place] [phone] US LAB 01/13/2018 Patient Education: Patient Medication [...] : E78.2 10/15/2017 Appointment: Najma Og WPtel: [address] [place] [phone] US FOLLOW UP 10/15/2017 Patient Education: Patient Medication Summary Completed 10/15/2017 Appointment: Najma Og WPtel: [address] [place], [place] [phone] US LAB 10/06/2017 Patient Education: Patient Medication Summary Completed 10/06/2017 Visit Diagnosis Plan: Actinic keratosis Discussion: Cr yotherapy as above ICD-9 : 702.0 ICD-10 : L57.0 04/23/2017 Appointment: Najma Og WPtel: [address] [place], [place] [phone] OFFICE SURGERY 04/23/2017 Patient Education: Patient Medication [...] : E11.9 03/11/2017 Appointment: Najma Og WPtel: [address] [place], [place] [phone] US FOLLOW UP 03/11/2017 Patient Education: Patient Medication Summary Completed 03/11/2017 Appointment: Najma Og WPtel: [address] [place], [place] [phone] US LAB 03/05/2017 Patient Education: Patient Medication [...] : F17.200 07/09/2016 Appointment: Najma Og WPtel: [address] [place], [place] [phone] US 07/08 lm ~sl 4/ confirmed~sl FOLLOW UP 08/2016 Patient Education: Patient Medication Summary Completed 07/09/2016 Appointment: Najma Og WPtel: [address] [place] [phone] US LAB 06/16/2016 Patient Education: Patient Medication Summary Completed 06/16/2016 Visit Plan: Lab discussed Accuchecks maribel ly Lifestyle change for 3mos then check CMP, HbA1C in 3mos Has had flu and pneumonia shot 03/10/2016 Appointment: Najma Og WPtel: [address] [place], [place] [phone] 03/06 confirmed `sl FOLLOW UP 03/10/2016 Patient Education: Patient Medication Summary Completed 03/10/2016 Appointment: Najma Og WPtel: [address] [place] [phone] LAB 03/06/2016 Patient Education: Patient Medication Summary Completed 03/06/2016 Referral: Donavon Keller WPtel: [address] [place] [address] [employer] [id number] Referral Completed 10/22/2015 Visit Plan: Tick bite area looks much be tter Continue current rxs and close monitoring Follow up if any new symptoms or worsening appearance 09/12/2015 Appointment: Barbara Brower [address] [place], [place] [phone] 09/10 confirmed~sl FOLLOW UP 09/12/2015 Patient Education: Patient Medication Summary Completed 09/12/2015 Visit Plan: Cover as above 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 topical steroids to calm down the inflammation(suspect most of redness is due to histamine response vs infection) Monitor closely Follow up in 2 days to recheck 09/10/2015 Appointment: Barbara Brower [address] [place] [address] ACUTE ILLNESS 09/10/2015 Patient Education: Patient Medication [...] shingles vaccine 09/06/2015 Appointment: Barbara Brower [address] [facility] FOLLOW UP 09/06/2015 Patient Education: Patient Medication Summary Completed 09/06/2015 Care Plan: Referral Order SNOMED-CT : [id number] Pending 09/06/2015 Appointment: Najma Og WPtel: [address] [place], [place] [phone] US LAB 08/31/2015 Patient Education: Patient Medication [...] to UC/ER. 06/29/2015 Appointment: Henrietta Lubin WPtel: [address] [place], [place] [phone] ACUTE ILLNESS 06/29/2015 Patient Education: Patient Medication Summary Completed 06/29/2015 Visit Plan: Lab discussed Will keep meds the same Discussed diet/exercise at length Cryotherapy as above to AKs of arms Flu and Prevnar 13 given Trial of revatio per patient request for ED--warned of no nitrates Recheck 4mos 01/17/2015 Appointment: Najma Og WPtel: [address] [place] [phone] [place] 01/16 confirmed~sl FOLLOW UP 01/17/2015 Patient Education: Patient Medication Summary Completed 01/17/2015 Appointment: Najma Og WPtel: [address] [place], [place] [phone] US LAB 01/12/2015 Patient Education: Patient Medication Summary Completed 01/12/2015 Visit Plan: Lab discussed Start accuchec ks daily Cryotherapy as above 09/19/2014 Appointment: Najma Og WPtel: [address] 09/18 confirmed -mf FOLLOW UP 09/19/2014 Patient Education: Patient Medication Summary Completed 09/19/2014 Appointment: Najma Og WPtel: [address] [place], [place] [phone] US LAB 08/15/2014 Patient Education: Patient Medication Summary Completed 08/15/2014 Appointment: Najma Og WPtel: [address] [place] [address] ACUTE ILLNESS 12/14/2013 Patient Education: Patient Medication Summary Completed 12/14/2013 Visit Plan: Patient using tylenol prn pa in Discussed possible shingles shot for booster in 9-12mos 10/17/2013 Appointment: Najma Og WPtel: [address] [place] [address] FOLLOW UP 10/17/2013 Patient Education: Patient Medication Summary Completed 10/17/2013 Appointment: Jeanie Briceño WPtel: [address] [place] [address] ACUTE ILLNESS 09/23/2013 Patient Education: Patient Medication Summary Completed 09/23/2013 Appointment: Najma Og WPtel: [address] [place] [address] BP CHECK 07/22/2013 Patient Education: Patient Medication Summary Completed 07/22/2013 Visit Plan: Lab discussed Discussed swit arun amlodopine to beta slim to see if helps with tremor BP check in 1mo 06/20/2013 Appointment: Najma Og WPtel: [address] [place] [address] 06/17 no answer FOLLOW UP 06/20/2013 Patient Education: Patient Medication Summary Completed 06/20/2013 Appointment: Najma Og WPtel: [address] [place], [place] [phone] US LAB 06/08/2013 Patient Education: Patient Medication Summary Completed 06/08/2013 Visit Plan: BRAT diet and yogurt and gat orade Lab discussed Continue current meds Spot checks on BS 11/25/2012 Appointment: Najma Og WPtel: [address] [place], [place] [id number] 11/24 FOLLOW UP 11/25/2012 Patient Education: Patient Medication Summary Completed 11/25/2012 Appointment: Najma Og WPtel: [address] [place], [place] [phone] LAB 11/11/2012 Patient Education: Patient Medication Summary Completed 11/11/2012 Appointment: Henrietta Lubin WPtel: [address] [place], [place] [phone] WORK IN 08/27/2012 Patient Education: Patient Medication Summary Completed 08/27/2012 Visit Plan: Pt going to get new home BP moniter Continue crestor and restart fish oil and will check fasting lab in 6mos Lab results discussed 05/11/2012 Appointment: Najma Og WPtel: [address] [place], [place] [phone] 05/10 FOLLOW UP 05/11/2012 Patient Education: Patient Medication Summary Completed 05/11/2012 Appointment: Najma Og WPtel: [address] [place] [phone] LAB 05/04/2012 Patient Education: Patient Medication Summary Completed 05/04/2012 Visit Plan: 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 and forehead 03/02/2012 Appointment: Najma Og WPtel: [address] [place] [phone] 03/01 OFFICE SURGERY 03/02/2012 Patient Education: Patient Medication Summary Completed 03/02/2012 Visit Plan: Labs discussed--recheck lab end of Nov/ of Mar Continue current meds and continue to moniter BS daily and BP 1-2 times a week Plan on cryotherapy this fall so can wear longsleeves after procedure See urology 12/11/2011 Appointment: Najma Og WPtel: [address] [place], [place] [id number] [place] FOLLOW UP 12/11/2011 Patient Education: Patient Medication Summary Completed 12/11/2011 Appointment: Najma Og WPtel: [address] [place], [place] [id number] 10/29/2011 Patient Education: Patient Medication Summary Completed 10/29/2011 Appointment: Najma Og WPtel: [address] [place], [place] [id number] BP CHECK 08/14/2011 Patient Education: Patient Medication Summary Completed 08/14/2011 Appointment: Najma Og WPtel: [address] [place] [address] ACUTE ILLNESS 07/29/2011 Patient Education: Patient Medication Summary Completed 07/29/2011 Appointment: Najma Og WPtel: [address] [place] [address] BP CHECK 07/23/2011 Patient Education: Patient Medication Summary Completed 07/23/2011 Appointment: Najma Og WPtel: [address] [place] [address] BP CHECK 06/24/2011 Patient Education: Patient Medication Summary Completed 06/24/2011 Appointment: Najma Og WPtel: [address] [place] [address] BP CHECK 05/20/2011 Patient Education: Patient Medication Summary Completed 05/20/2011 Appointment: Najma Og WPtel: [address] [place] [address] [place] BP CHECK 04/29/2011 Patient Education: Patient Medication Summary Completed 04/29/2011 Appointment: Najma Og WPtel: [address] [place] [address] BP CHECK 04/15/2011 Patient Education: Patient Medication Summary Completed 04/15/2011 Visit Plan: Continue current meds Add fi sh oil 1gm daily Glucometer given to use for accuchecks prn 03/18/2011 Appointment: Najma Ogtel: [address] [place], [place] [phone] FOLLOW UP 03/18/2011 Patient Education: Patient Medication Summary Completed 03/18/2011 Appointment: Najma Og WPtel: [address] [place], [place] [phone] [place] LAB 03/14/2011 Patient Education: Patient Medication Summary Completed 03/14/2011 Appointment: Najma Og WPtel: [address] [place], [place] [phone] [place] LAB 11/11/2010 Appointment: Najma Og WPtel: [address] [place] [phone] [place] UA 11/11/2010 Patient Education: Patient Medication Summary Completed 11/11/2010 Appointment: Najma Og WPtel: [address] [place], [place] [phone] [place] LAB 10/29/2010 Patient Education: Patient Medication Summary Completed 10/29/2010 Appointment: Najma Og WPtel: [address] [place], [place] [phone] [place] FOLLOW UP 07/30/2010 Patient Education: Patient Medication Summary Completed 07/30/2010 Appointment: Najma Og WPtel: [address] [place], [place] [phone] [place] LAB 07/23/2010 Patient Education: Patient Medication Summary Completed 07/23/2010 Appointment: Najma Ogtel: [address] [place], [place] [phone] [place] LAB 04/26/2010 Patient Education: Patient Medication Summary Completed 04/26/2010 Visit Plan: Add PSA to lab Restart Crest or at 10mg daily Trial of Wellbutrin to aid in smoking cessation Check Lipids and LFTs in 3mos 04/24/2010 [facility]ment: [facility]aj[facility] Og [facility]Ptel[facility] [address] [facility] [id number] FOLLOW UP 04/24/2010 Patient Education: Patient Medication Summary Completed 04/24/2010 Appointment: Najma Og WPtel: [address] [facility] [id number] [place] LAB 04/19/2010 Patient Education: Patient Medication Summary Completed 04/19/2010 Referral: Donavon Keller WPtel: [facility] [employer] [id number] [place] Referral Completed Instructions Comment . Lab [...] conservative + labs. CBC & CMP at [facility] Discussed needed oral hydration (preferably with [...]
--- OUTSIDE RECORDS SUMMARY | 2019-10-14 22:52 | XMS REPORT | CCD ---
Author Author Inocente Og D.O. 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 PP Unavailable CCM Unavailable Summary Purpose Interface Exchange Insurance Providers Payer name Policy type / Coverage type Covered constitution party ID Effective Begin Date Effective End Date [employer] MEDICARE Medicare Part B [id number] Unknown [facility] Medicare Part B [id number] Un known Family history Father Diagnosis Age At Onset Diabetes mellitus Type 2 Unknown Myocardial infarction Unknown Brother Diagnosis Age At Onset Diabetes mellitus Type 2 Unknown Mother Diagnosis Age At Onset Osteoarthritis Unknown Cerebrovascular disease Unknown Social History Social History Element Codes Description Effective Dates Tobacco history SNOMED CT: 851153630 Never smoker 12/21/2014 Marital status Unknown 07/30/2010 [...] Instructions fenofibrate micronized 134 mg capsule RxNorm: 884991 1 Capsule(s) Oral QD for triglycerides 04/14/2019 07/13/2019 Active amlodipine 5 mg tablet RxNorm: 691085 TAKE 1 TABLET BY MOUTH ON CE DAILY 03/22/2019 06/19/2019 Active metformin ER 500 mg tablet,extended release 24 hr RxNorm: 86 0975 TAKE 1 TABLET BY MOUTH ONCE DAILY 03/15/2019 No Stop Date Active propranolol ER 80 mg capsule,24 hr,extended release RxNorm: 474455 TAKE 1 CAPSULE BY MOUTH ONCE DAILY 03/15/2019 No Stop Date Active amlodipine 5 mg tablet RxNorm: 012767 1 Tablet(s) PO QD 12/27/2018 Inactive fenofibrate micronized 134 mg capsule RxNorm: 289593 TA KE 1 CAPSULE BY MOUTH ONCE DAILY FOR TRIGLYCERIDES 10/11/2018 04/13/2019 Inactive amlodipine 5 mg tablet RxNorm: 226924 1 Tablet(s) PO QD 09/30/2018 Inactive metformin ER 500 mg tablet,extended release 24 hr RxNorm: 86 0975 TAKE 1 TABLET BY MOUTH ONCE DAILY 09/21/2018 03/14/2019 Inactive propranolol ER 80 mg capsule,24 hr,extended release RxNorm: 239308 TAKE 1 CAPSULE BY MOUTH ONCE DAILY 09/21/2018 03/14/2019 Inactive amlodipine 5 mg tablet RxNorm: 746768 1 Tablet(s) PO QD 08/25/2018 Inactive amlodipine 5 mg tablet RxNorm: 863473 1 Tablet(s) PO QD 08/25/2018 Inactive lisinopril 40 mg tablet RxNorm: 556335 TAKE 1 TABLET BY MOUTH O NCE DAILY 07/21/2018 08/24/2018 Inactive fenofibrate micronized 134 mg capsule RxNorm: 166015 TA KE 1 CAPSULE BY MOUTH ONCE DAILY FOR TRIGLYCERIDES 07/12/2018 10/10/2018 Inactive propranolol ER 80 mg capsule,24 hr,extended release RxNorm: 346997 TAKE 1 CAPSULE BY MOUTH ONCE DAILY 06/21/2018 09/20/2018 Inactive lisinopril 40 mg tablet RxNorm: 616540 TAKE 1 TABLET BY MOUTH O NCE DAILY 04/26/2018 07/20/2018 Inactive metformin ER 500 mg tablet,extended release 24 hr RxNorm: 801635 1 Tablet(s) QD 03/31/2018 09/20/2018 Inactive lisinopril 40 mg tablet RxNorm: 468783 TAKE 1 TABLET BY MOUTH O NCE DAILY 01/28/2018 04/25/2018 Inactive Vitamin D3 5,000 unit tablet RxNorm: 044780 1 Tablet(s) PO QD 01/1908/18/2018 Inactive fenofibrate micronized 134 mg capsule RxNorm: 055696 1 Capsule(s) PO QD for triglycerides 01/19/2018 07/11/2018 Inactive metformin ER 500 mg tablet,extended release 24 hr RxNorm: 658928 1 Tablet(s) QD 12/31/2017 03/30/2018 Inactive metformin ER 500 mg tablet,extended release 24 hr RxNorm: 602853 Tablet(s) 12/30/2017 12/30/2017 Inactive propranolol ER 80 mg capsule,24 hr,extended release RxNorm: 402523 1 Capsule(s) PO QD 12/17/2017 06/14/2018 Inactive metformin ER 500 mg tablet,extended release 24 hr RxNorm: 86 0975 1 Tablet(s) PO QD DUE FOR LABS AND APPT 12/02/2017 12/30/2017 Inactive Crestor 10 mg tablet RxNorm: 342016 TAKE ONE TABLET BY MOUTH ON CE DAILY 11/01/2017 01/18/2018 Inactive lisinopril 40 mg tablet RxNorm: 887270 TAKE ONE TABLET BY MOUTH ONCE DAILY [...] ER 80 mg capsule,24 hr,extended release RxNorm: 699258 1 Capsule(s) PO QD DUE FOR APPT 09/08/2017 12/17/2017 Inactive Crestor 10 mg tablet RxNorm: 957271 1 Tablet(s) PO QD T CHELSI ONE TABLET BY MOUTH DAILY 03/11/2017 09/06/2017 Inactive propranolol ER 80 mg capsule,24 hr,extended release RxNorm: 496409 1 Capsule(s) PO QD TAKE ONE CAPSULE BY MOUTH DAILY - REPLACES AMLODOPINE 03/11/2017 09/08/2017 Inactive metformin ER 500 mg tablet,extended release 24 hr RxNorm: 86 0975 1 Tablet(s) PO QD 03/11/2017 09/08/2017 Inactive lisinopril 40 mg tablet RxNorm: 967715 1 Tablet(s) PO QD 03/11/2017 0 09/06/2017 Inactive lisinopril 40 mg tablet RxNorm: 216387 1 Tablet(s) PO QD 02/16/2017 1 05/11/2016 Inactive metformin ER 500 mg tablet,extended release 24 hr RxNorm: 86 0975 1 Tablet(s) PO QD Due for labs and follow up before further refills 02/16/2017 017 Inactive propranolol ER 80 mg capsule,24 hr,extended release RxNorm: 127493 Capsule(s) TAKE ONE CAPSULE BY MOUTH DAILY - REPLACES AMLODOPINE 11/19/20162016 Inactive lisinopril 40 mg tablet RxNorm: 757785 1 Tablet(s) PO QD 11/17/2016 1 04/18/2016 Inactive metformin ER 500 mg tablet,extended release 24 hr RxNorm: 86 0975 1 Tablet(s) PO QD 11/17/2016 02/16/2017 Inactive lisinopril 40 mg tablet RxNorm: 165670 1 Tablet(s) PO Q D TAKE ONE TABLET BY MOUTH DAILY 08/19/2016 11/17/2016 Inactive metformin ER 500 mg tablet,extended release 24 hr RxNorm: 86 0975 Tablet(s) TAKE ONE TABLET BY MOUTH DAILY 08/19/2016 11/16/2016 Inactive propranolol ER 80 mg capsule,24 hr,extended release RxNorm: 572667 Capsule(s) TAKE ONE CAPSULE BY MOUTH DAILY - REPLACES AMLODOPINE 08/19/20162016 Inactive Crestor 10 mg tablet RxNorm: 530979 TAKE ONE TABLET BY MOUTH DAILY 06/16/2016 03/10/2017 Inactive lisinopril 40 mg tablet RxNorm: 510310 1 Tablet(s) PO Q D TAKE ONE TABLET BY MOUTH DAILY 05/23/2016 08/18/2016 Inactive metformin ER 500 mg tablet,extended release 24 hr RxNorm: 86 0975 TAKE ONE TABLET BY MOUTH DAILY 05/23/2016 08/19/2016 Inactive propranolol ER 80 mg capsule,24 hr,extended release RxNorm: 406540 TAKE ONE CAPSULE BY MOUTH DAILY - REPLACES AMLODOPINE 05/23/2016 08/19/2016 [facility] Crestor 10 mg tablet RxNorm: 219394 TAKE ONE TABLET BY MOUTH DAILY 03/31/2016 06/15/2016 Inactive metformin ER 500 mg tablet,extended release 24 hr RxNorm: 86 0975 TAKE ONE TABLET BY MOUTH DAILY 02/19/2016 05/22/2016 Inactive propranolol ER 80 mg capsule,24 hr,extended release RxNorm: 244501 TAKE ONE CAPSULE BY MOUTH DAILY - REPLACES AMLODOPINE 11/23/2015 05/20/2016 [facility] metformin ER 500 mg tablet,extended release 24 hr RxNorm: 86 0975 TAKE ONE TABLET BY MOUTH DAILY 11/08/2015 02/05/2016 Inactive Bactroban Nasal 2 % ointment RxNorm: 543604 Apply topic ally to affected area twice daily 09/10/2015 03/09/2016 Inactive Vibramycin 100 mg capsule RxNorm: 691465 1 Capsule(s) PO BID 201509/23/2015 Inactive lisinopril 40 mg tablet RxNorm: 345362 1 Tablet(s) PO Q D TAKE ONE TABLET BY MOUTH DAILY 08/27/2015 02/22/2016 Inactive metformin ER 500 mg tablet,extended release 24 hr RxNorm: 86 0975 TAKE ONE TABLET BY MOUTH DAILY 08/06/2015 11/03/2015 Inactive Levsin/SL 0.125 mg sublingual tablet RxNorm: 2448384 1 T ablet(s) SL Q4H as needed for stomach cramps 06/29/2015 07/03/2015 Inactive lisinopril 40 mg tablet RxNorm: 890111 Tablet(s) TAKE ONE TABLE T BY MOUTH DAILY 06/07/2015 08/26/2015 Inactive propranolol ER 80 mg capsule,24 hr,extended release RxNorm: 559517 TAKE ONE CAPSULE BY MOUTH DAILY - REPLACES AMLODOPINE 05/30/2015 11/22/2015 [facility] metformin ER 500 mg tablet,extended release 24 hr RxNorm: 86 0975 1 Tablet(s) PO QD 05/10/2015 08/05/2015 Inactive Crestor 10 mg tablet RxNorm: 545096 TAKE ONE TABLET BY MOUTH DAILY 04/18/2015 10/14/2015 Inactive metformin ER 500 mg tablet,extended release 24 hr RxNorm: 86 0975 TAKE ONE TABLET BY MOUTH DAILY 02/07/2015 05/10/2015 Inactive sildenafil 20 mg tablet RxNorm: 369555 1 Tablet(s) PO QD 01/17/2015 1 04/17/2014 Inactive propranolol ER 80 mg capsule,24 hr,extended release RxNorm: 293717 1 Capsule(s) PO QD replaces amlodopine 11/28/2014 05/26/2015 Inactive [SALINASIN GS FOR UNINSURED PATIENTS -- BIN:[id number], PCN: [id number], Group: [id number], ID# [id number], Process claim through [employer], for questions: . THIS IS NOT INSURANCE.] lisinopril 40 mg tablet RxNorm: 351131 TAKE ONE TABLET BY MOUTH DAILY 11/16/2014 06/07/2015 Inactive lisinopril 40 mg tablet RxNorm: 583625 1 Tablet(s) PO QD 08/21/2014 0 11/15/2014 Inactive [AttnRPh: Saving apply/adjudicate RxGRP: [id number] RxBIN:[id number] RxPCN: ID#:[id number]] lisinopril 40 mg tablet RxNorm: 855899 1 Tablet(s) PO Q D NEEDS SEEN FOR APPOINTMENT 07/14/2014 08/21/2014 Inactive [AttnRPh: Saving apply/adjudicate RxGRP:[id number] RxBIN:[id number] RxPCN: ID#:[id number]] Crestor 10 mg tablet RxNorm: 791393 TAKE ONE TABLET BY MOUTH 07/06/2014 01/01/2015 Inactive metformin ER 500 mg tablet,extended release 24 hr RxNorm: 86 0975 1 Tablet(s) QD TAKE ONE TABLET BY MOUTH ONCE A DAY 06/09/2014 12/05/2014 Inactive propranolol ER 80 mg capsule,24 hr,extended release RxNorm: 970852 1 Capsule(s) PO QD replaces amlodopine 06/05/2014 11/28/2014 Inactive [GanjiIN GS FOR UNINSURED PATIENTS -- BIN:[id number], PCN: [id number], Group: [id number], ID# [id number], Process claim through [employer], for questions: . THIS IS NOT INSURANCE.] propranolol ER 80 mg capsule,24 hr,extended release RxNorm: 866339 1 Capsule(s) PO QD replaces amlodopine 03/07/2014 06/05/2014 Inactive [SAVIN GS FOR UNINSURED PATIENTS -- BIN:[id number], PCN: [id number], Group: [id number], ID# [id number], Process claim through [employer] for questions: . THIS IS NOT INSURANCE.] metformin ER 500 mg tablet,extended release 24 hr RxNorm: 86 0975 TAKE ONE TABLET BY MOUTH ONCE A DAY 12/15/2013 06/09/2014 Inactive propranolol ER 80 mg capsule,24 hr,extended release RxNorm: 568172 1 Capsule(s) PO QD replaces amlodopine 12/09/2013 03/07/2014 Inactive [NICOLAS FOR UNINSURED PATIENTS -- BIN:864195, PCN: [id number], Group: [id number], ID# [id number], Process claim through [employer], for questions: . THIS IS NOT INSURANCE.] acyclovir 800 mg tablet RxNorm: 082114 1 Tablet(s) PO QID 09/23/2013 09/29/2013 Inactive gabapentin 300 mg capsule RxNorm: 562607 1 Capsule(s) PO BID 201310/07/2013 Inactive metformin ER 500 mg tablet,extended release 24 hr RxNorm: 86 0975 1 Tablet(s) PO QD 09/19/2013 12/14/2013 Inactive propranolol ER 80 mg capsule,24 hr,extended release RxNorm: 437931 1 Capsule(s) PO QD replaces amlodopine 09/15/2013 12/09/2013 Inactive metformin ER 500 mg 24 hr tablet,extended release RxNorm: 86 0975 1 Tablet(s) PO QD 09/15/2013 09/18/2013 Inactive lisinopril 40 mg tablet RxNorm: 294844 1 Tablet(s) PO QD 07/19/2013 0 07/14/2014 Inactive Crestor 10 mg tablet RxNorm: 928768 Tablet(s) PO TAKE O NE TABLET BY MOUTH EVERY DAY 07/12/2013 07/05/2014 Inactive propranolol ER 80 mg capsule,24 hr,extended release RxNorm: 113727 1 Capsule(s) PO QD replaces amlodopine 06/20/2013 09/15/2013 Inactive triamcinolone acetonide 0.1 % topical ointment RxNorm: 87796 36 Application TOP BID 06/20/2013 06/26/2013 Inactive Crestor 10 mg tablet RxNorm: 520197 1 Tablet(s) PO QD 04/18/201310/2013 Inactive Viagra 100 mg tablet RxNorm: 855058 1 Tablet(s) PO as directed 01/0508/18/2018 Inactive TAKE ONE TABLET BY MOUTH DIRECTED Crestor 10 mg tablet RxNorm: 344627 1 Tablet(s) PO QD 01/17/201304/06 Inactive metformin ER 500 mg tablet,extended release 24 hr RxNorm: 86 0975 1 Tablet(s) PO QD TAKE ONE TABLET BY MOUTH EVERY DAY 12/23/2012 09/15/2013 Inactive triamcinolone acetonide 0.1 % topical ointment RxNorm: 69750 36 Application TOP BID 08/27/2012 09/02/2012 Inactive ketoconazole 2 % topical cream RxNorm: 657434 1 Application TOP QAM 08/27/2012 09/02/2012 Inactive lisinopril 40 mg tablet RxNorm: 498280 1 Tablet(s) PO QD 07/21/2012 0 07/15/2013 Inactive Crestor 10 mg tablet RxNorm: 915310 1 Tablet(s) PO QD 07/21/201210/04 Inactive amlodipine 10 mg tablet RxNorm: 418602 1 Tablet(s) PO QHS 07/21/2012 07/15/2013 Inactive metformin ER 500 mg tablet,extended release 24 hr RxNorm: 86 0977 Tablet(s) PO TAKE ONE TABLET BY MOUTH EVERY DAY 03/31/2012 12/22/2012 Inactive lisinopril 40 mg tablet RxNorm: 360685 1 Tablet(s) PO QD 07/29/2011 0 07/20/2012 Inactive amlodipine 10 mg tablet RxNorm: 580688 1 Tablet(s) PO QHS 07/29/2011 07/20/2012 Inactive amlodipine 10 mg Tab RxNorm: 753518 1 Tablet(s) PO QHS 07/29/2011 Inactive Viagra 100 mg tablet RxNorm: 415790 1 Tablet(s) PO as directed 07/0601/24/2013 Inactive TAKE ONE TABLET BY MOUTH DIRECTED Crestor 10 mg tablet RxNorm: 882054 1 Tablet(s) PO QD 07/29/201107/05 Inactive Norvasc 5 mg Tab RxNorm: 437231 1 Tablet(s) PO QD 07/16/2011 07/28/19 Inactive Norvasc 5 mg Tab RxNorm: 554601 1 Tablet(s) PO QD 06/26/2011 07/15/19 12 Inactive lisinopril 40 mg Tab RxNorm: 685500 1 Tablet(s) PO QD 05/13/201107/06 Inactive metformin ER 500 mg tablet,extended release 24 hr RxNorm: 86 0977 1 Tablet(s) PO QD 03/18/2011 07/28/2011 Inactive Crestor 10 mg Tab RxNorm: 404050 1 Tablet(s) PO QHS 01/27/20112011 Inactive metformin ER 500 mg 24 hr Tab RxNorm: 467301 1 Tablet(s) PO QD 11/0403/17/2011 Inactive Viagra 100 mg Tab RxNorm: 986044 Tablet(s) PO TAKE ON E TABLET BY MOUTH DIRECTED 08/26/2010 07/28/2011 Inactive metformin ER 500 mg 24 hr Tab RxNorm: 805304 1 Tablet(s) PO QD 07/0611/18/2010 Inactive Crestor 10 mg Tab RxNorm: 143779 1 Tablet(s) PO QHS 07/30/20102010 Inactive Crestor 10 mg Tab RxNorm: 253711 1 Tablet(s) PO QHS 05/20/20102010 Inactive Wellbutrin SR 150 mg Tab RxNorm: 907569 1 Tablet(s) PO QAM 04/24/19 11 07/22/2010 Inactive Multivitamin And Mineral tablet RxNorm: 1 Tablet(s) PO QD No Start Date Active FreeStyle Lite Strips RxNorm: 1 Unit Dose Miscel laneous AC & HS check blood sugar AC and HS No Start Date Active Co Q-10 200 mg capsule RxNorm: 963876 1 Capsule(s) PO QD No Start Date Active lancets RxNorm: 1 Milliliter(s) Miscellaneous AC & HS No Start Robert e Active Vitamin D3 4,000 unit capsule RxNorm: 8299215 1 Capsule(s) PO QD No Start Date 07/08/2016 Inactive Fish Oil 360 mg-1,200 mg capsule RxNorm: 375983 2 Capsule(s) PO QD No Start Date 01/30/2019 Inactive hydrocodone 5 mg-acetaminophen 325 mg tablet RxNorm: 350628 1 Tablet(s) PO Q4H as needed for severe pain No Start Date 12/30/2015 Inactive Xanax 0.25 mg tablet RxNorm: 688430 1/2 Tablet(s) PO PRN for se andrea stress No Start Date 07/08/2016 Inactive lisinopril 40 mg Tab RxNorm: 861018 1 Tablet(s) PO QD No Start Date 0 05/12/2011 Inactive Fish Oil 1,000 mg capsule RxNorm: 1 Capsule(s) PO QD No Start Date 09/18/2014 Inactive naproxen 500 mg Tab RxNorm: 334568 1 Tablet(s) PO BID No Start Date 0 07/28/2011 Inactive aspirin 81 mg tablet RxNorm: 088867 1 Tablet(s) PO QD No Start Date 0 05/09/2018 Inactive Crestor 10 mg Tab RxNorm: 839117 1 Tablet(s) PO QD No Start Date 07/06 Inactive Crestor 5 mg tablet RxNorm: 455139 1 Tablet(s) PO QD No Start Date Inactive Fish Oil Oral RxNorm: Oral No Start Date 09/18/2014 Inactive Viagra 100 mg Tab RxNorm: 500039 1 Tablet(s) PO as directed No Star [...] Result Date S ervice Location MEAN GLUC 7402387 Calc Mean Gluc 140 mg/dL 01/26/2019 Unkn own GLYCOSYLATED HEMOGLOBIN TEST 96399 Hgb A1c 27729-8 6.5 % 1 Unknown COMPREHENSIVE METABOLIC 01111 AST 17 U/L 2018 Unknown COMPREHENSIVE METABOLIC 41025 ALT 19 U/L 2018 Unknown COMPREHENSIVE METABOLIC 39124 BUN 19 mg/dL 2018 Unknown COMPREHENSIVE METABOLIC 26514 ALBUMIN 4.3 g/dL 2018 Unknown COMPREHENSIVE METABOLIC 11556 CHLORIDE 103 mmol/L 01/26 Unknown COMPREHENSIVE METABOLIC 99684 Bili Total 0.6 mg/dL 01/26 Unknown COMPREHENSIVE METABOLIC 99669 ALK PHOS 60 U/L 2018 Unknown COMPREHENSIVE METABOLIC 38445 SODIUM 140 mmol/L 01/26 Unknown COMPREHENSIVE METABOLIC 73545 CREATININE 1.21 mg/dL 01/05 Unknown COMPREHENSIVE METABOLIC 81502 CALCIUM 9.6 mg/dL 2018 Unknown COMPREHENSIVE METABOLIC 28189 POTASSIUM 4.5 mmol/L 01/26 Unknown COMPREHENSIVE METABOLIC 50577 Total Protein 6.7 g/dL Unknown COMPREHENSIVE METABOLIC 62471 Glucose 111 mg/dL 2018 Unknown COMPREHENSIVE METABOLIC 47220 Bicarbonate 28 mmol/L 01/05 Unknown COMPREHENSIVE METABOLIC 87340 AGAP 9 mmol/L 2018 Unknown COMPLETE BLOOD COUNT 6087509 WBC 10.7 10e9/L 019 Unknown COMPLETE BLOOD COUNT 9785023 RBC 4.38 10e12/L 2018 Unknown COMPLETE BLOOD COUNT 1220362 HEMOGLOBIN 13.7 g/dL 01/27/20 19 Unknown COMPLETE BLOOD COUNT 3183814 HEMATOCRIT 42.0 % 01/27/20 19 Unknown COMPLETE BLOOD COUNT 3246545 MCV 95.9 fL 9 Unknown COMPLETE BLOOD COUNT 0004030 MCH 31.3 pg 9 Unknown COMPLETE BLOOD COUNT 5275688 MCHC 32.6 g/dL 9 Unknown COMPLETE BLOOD COUNT 8272708 PLATELET COUNT 232 10e9/L Unknown COMPLETE BLOOD COUNT 7127657 Mean Plt Volume 11.4 fL Unknown COMPLETE BLOOD COUNT 8687114 Neut Auto 68.7 % 9 Unknown COMPLETE BLOOD COUNT 7116697 Lymph Auto 21.2 % 01/27/20 19 Unknown COMPLETE BLOOD COUNT 7617495 Hickman Auto 8.1 % 9 Unknown COMPLETE BLOOD COUNT 7054754 RDW 14.1 % 9 Unknown COMPLETE BLOOD COUNT 3577582 Eos Auto 1.8 % 9 Unknown COMPLETE BLOOD COUNT 6272830 Baso Auto 0.2 % 9 Unknown COMPLETE BLOOD COUNT 9088890 Neutrophil Abs 7.35 10e9/L Unknown COMPLETE BLOOD COUNT 6286094 Lymphocyte Abs 2.27 10e9/L Unknown COMPLETE BLOOD COUNT 3110831 Monocyte Abs 0.87 10e9/L 01/05 Unknown COMPLETE BLOOD COUNT 1681515 Eosinophil Abs 0.19 10e9/L Unknown COMPLETE BLOOD COUNT 1634387 RDW-SD 47.7 fL 9 Unknown COMPLETE BLOOD COUNT 9574388 Basophil Abs 0.02 10e9/L 01/05 Unknown GFR CALC 5089675 GFR Non Afr Amr 59 mL/min 01/26/2019 Unk nown GFR CALC [id number] GFR Afr Amr >60 mL/min 01/26/2019 Unknow n [facility] 71324 Cholesterol 215 mg/dL 01/26/2019 Unkno wn [facility] GROUP 18972 Triglyceride 221 mg/dL 01/26/2019 Unkn own [facility] 94675 HDL CHOLESTEROL 41 mg/dL 01/26/2019 U nknown L[facility] GROUP 58720 Chol/HDL Ratio 5.24 ratio 01/26/2019 U nknown LIP[facility] GROUP 67267 NON-HDL Chol 174 mg/dL 01/26/2019 Unkn own [facility] 07164 LDL Cholesterol 130 mg/dL 01/26/2019 [place] [address] Glucose 104 mg/dL 09/30 [place] [address] CREATININE 1.18 mg/dL [place] [address] BUN 19 mg/dL 09/30 [place] [address] SODIUM 139 mmol/L 09/05 [place] [address] POTASSIUM 4.1 mmol/L 09/05 [place] [address] CHLORIDE 105 mmol/L 09/05 [place] [address] Bicarbonate 26 mmol/L [place] [address] AGAP 8 mmol/L 09/30 [place] [address] CALCIUM 9.3 mg/dL 09/30 Unknown GFR CALC 8604320 GFR Non Afr Amr >60 mL/min 09/30/2018 Un known GFR CALC [id number] GFR Afr Amr >60 mL/min 09/30/2018 Unknow n MICROALBUMIN URINE RANDOM 12031 U Microalbumin <2.0 mg/L 08/19/2018 Unknown MICROALBUMIN URINE RANDOM 83757 U Creatinine 66 mg/dL 0 08/19/2018 Unknown MICROALBUMIN URINE RANDOM 56609 ALB/CR Ratio <3.0 mg/gCR 08/19/2018 Unknown COMPREHENSIVE METABOLIC 62986 AST 21 U/L 2018 Unknown COMPREHENSIVE METABOLIC 30575 ALT 20 U/L 2018 Unknown COMPREHENSIVE METABOLIC 99479 BUN 31 mg/dL 2018 Unknown COMPREHENSIVE METABOLIC 20213 ALBUMIN 4.4 g/dL 2018 Unknown COMPREHENSIVE METABOLIC 73960 CHLORIDE 105 mmol/L 08/16 Unknown COMPREHENSIVE METABOLIC 39432 Bili Total 0.5 mg/dL 08/16 Unknown COMPREHENSIVE METABOLIC 21861 ALK PHOS 40 U/L 2018 Unknown COMPREHENSIVE METABOLIC 58847 SODIUM 140 mmol/L 08/16 Unknown COMPREHENSIVE METABOLIC 76433 CREATININE 1.45 mg/dL 08/04 Unknown COMPREHENSIVE METABOLIC 85616 CALCIUM 9.8 mg/dL 2018 Unknown COMPREHENSIVE METABOLIC 15374 POTASSIUM 5.1 mmol/L 08/16 Unknown COMPREHENSIVE METABOLIC 95000 Total Protein 6.9 g/dL Unknown COMPREHENSIVE METABOLIC 73188 Glucose 110 mg/dL 2018 Unknown COMPREHENSIVE METABOLIC 86748 Bicarbonate 25 mmol/L 08/04 Unknown COMPREHENSIVE METABOLIC 18129 AGAP 10 mmol/L 2018 Unknown GFR CALC 2296051 GFR Non Afr Amr 48 mL/min 08/16/2018 Unk nown GFR CALC 5956838 GFR Afr Amr 58 mL/min 08/16/2018 Unknown GLYCOSYLATED HEMOGLOBIN TEST 65360 Hgb A1c 27229-4 5.9 % 0 08/16/2018 Unknown LIP[facility] GROUP 58273 Cholesterol 226 mg/dL 08/16/2018 Unkno wn LIPID GROUP 90424 Triglyceride 335 mg/dL 08/16/2018 Unkn own L[facility] GROUP 24911 HDL CHOLESTEROL 32 mg/dL 08/16/2018 U nknown LIP[facility] GROUP 75367 Chol/HDL Ratio 7.06 ratio 08/16/2018 U nknown L[facility] GROUP 23609 NON-HDL Chol 194 mg/dL 08/16/2018 Unkn own LIP[facility] GROUP 02722 LDL Cholesterol 127 mg/dL 08/16/2018 U nknown THYROID STIMULATING HORMONE 08029 TSH 2.475 uIU/mL 08/16/2018 Unknown COMPLETE BLOOD COUNT 4937570 WBC 7.5 10e9/L 08/17/19 19 Unknown COMPLETE BLOOD COUNT 8276311 RBC 4.09 10e12/L 2018 Unknown COMPLETE BLOOD COUNT 2671484 HEMOGLOBIN 12.9 g/dL 08/17/19 19 Unknown COMPLETE BLOOD COUNT 9357255 HEMATOCRIT 40.0 % 08/17/19 19 Unknown COMPLETE BLOOD COUNT 6350957 MCV 97.8 fL 9 Unknown COMPLETE BLOOD COUNT 4651226 MCH 31.5 pg 9 Unknown COMPLETE BLOOD COUNT 7295072 MCHC 32.3 g/dL 9 Unknown COMPLETE BLOOD COUNT 0813234 PLATELET COUNT 258 10e9/L Unknown COMPLETE BLOOD COUNT 5839426 Mean Plt Volume 11.4 fL Unknown COMPLETE BLOOD COUNT 9285628 Neut Auto 62.9 % 9 Unknown COMPLETE BLOOD COUNT 0624386 Lymph Auto 27.3 % 08/17/19 19 Unknown COMPLETE BLOOD COUNT 8061171 Hickman Auto 8.2 % 9 Unknown COMPLETE BLOOD COUNT 3798305 RDW 13.3 % 9 Unknown COMPLETE BLOOD COUNT 7525054 Eos Auto 1.5 % 9 Unknown COMPLETE BLOOD COUNT 4831648 Baso Auto 0.1 % 9 Unknown COMPLETE BLOOD COUNT 3911301 Neutrophil Abs 4.72 10e9/L Unknown COMPLETE BLOOD COUNT 6832436 Lymphocyte Abs 2.05 10e9/L Unknown COMPLETE BLOOD COUNT 2252080 Monocyte Abs 0.62 10e9/L 08/04 Unknown COMPLETE BLOOD COUNT 9012004 Eosinophil Abs 0.11 10e9/L Unknown COMPLETE BLOOD COUNT 0250208 RDW-SD 46.7 fL 9 Unknown COMPLETE BLOOD COUNT 8799970 Basophil Abs 0.01 10e9/L 08/04 Unknown MEAN GLUC 8906104 Calc Mean Gluc 123 mg/dL 08/16/2018 Unkn own [facility] 05054 Cholesterol 212 mg/dL 05/05/2018 Unkno wn [facility] 31936 Triglyceride 271 mg/dL 05/05/2018 Unkn own [facility] 54221 HDL CHOLESTEROL 38 mg/dL 05/05/2018 U nknown [facility] 54732 Chol/HDL Ratio 5.58 ratio 05/05/2018 U nknown [facility] 36540 NON-HDL Chol 174 mg/dL 05/05/2018 Unkn own [facility] GROUP 82502 LDL Cholesterol 120 mg/dL 05/05/2018 U nknown GFR CALC 0324065 GFR Non Afr Amr 49 mL/min 05/05/2018 Unk nown GFR CALC 4237427 GFR Afr Amr 59 mL/min 05/05/2018 Unknown GLYCOSYLATED HEMOGLOBIN TEST 78235 Hgb A1c 30691-3 6.0 % 0 05/05/2018 Unknown [facility] GLUC 7980045 Calc Mean Gluc 126 mg/dL 05/05/2018 Unkn own COMPREHENSIVE METABOLIC 10377 AST 18 U/L 2018 Unknown COMPREHENSIVE METABOLIC 02686 ALT 23 U/L 2018 Unknown COMPREHENSIVE METABOLIC 59762 BUN 30 mg/dL 2018 Unknown COMPREHENSIVE METABOLIC 84387 ALBUMIN 4.3 g/dL 2018 Unknown COMPREHENSIVE METABOLIC 56135 CHLORIDE 106 mmol/L 05/05 Unknown COMPREHENSIVE METABOLIC 94436 Bili Total 0.4 mg/dL 05/05 Unknown COMPREHENSIVE METABOLIC 04919 ALK PHOS 39 U/L 2018 Unknown COMPREHENSIVE METABOLIC 28610 SODIUM 139 mmol/L 05/05 Unknown COMPREHENSIVE METABOLIC 84711 CREATININE 1.44 mg/dL 04/08 Unknown COMPREHENSIVE METABOLIC 98475 CALCIUM 9.6 mg/dL 2018 Unknown COMPREHENSIVE METABOLIC 39193 POTASSIUM 4.7 mmol/L 05/05 Unknown COMPREHENSIVE METABOLIC 28687 Total Protein 6.6 g/dL Unknown COMPREHENSIVE METABOLIC 47921 Glucose 112 mg/dL 2018 Unknown COMPREHENSIVE METABOLIC 80154 Bicarbonate 28 mmol/L 04/08 Unknown COMPREHENSIVE METABOLIC 11644 AGAP 5 mmol/L 2018 Unknown THYROID STIMULATING HORMONE 44864 TSH 3.725 uIU/mL 05/05/2018 Unknown COMPLETE BLOOD COUNT 8229971 WBC 8.2 10e9/L 05/05/19 19 Unknown COMPLETE BLOOD COUNT 9374499 RBC 4.02 10e12/L 2018 Unknown COMPLETE BLOOD COUNT [id number] HEMOGLOBIN 12.7 g/dL 05/05/19 19 Unknown COMPLETE BLOOD COUNT [id number] HEMATOCRIT 39.3 % 05/05/19 19 Unknown COMPLETE BLOOD COUNT [id number] MCV 97.8 fL 9 Unknown COMPLETE BLOOD COUNT [id number] MCH 31.6 pg 9 Unknown COMPLETE BLOOD COUNT [id number] MCHC 32.3 g/dL 9 Unknown COMPLETE BLOOD COUNT [id number] PLATELET COUNT 213 10e9/L Unknown COMPLETE BLOOD COUNT [id number] Mean Plt Volume 11.7 fL Unknown COMPLETE BLOOD COUNT [id number] Neut Auto 55.7 % 9 Unknown COMPLETE BLOOD COUNT [id number] Lymph Auto 33.2 % 05/05/19 19 Unknown COMPLETE BLOOD COUNT [id number] [place]man Auto 8.5 % 9 Unknown COMPLETE BLOOD COUNT [id number] RDW 13.9 % 9 Unknown COMPLETE BLOOD COUNT [id number] Eos Auto 2.4 % 9 Unknown COMPLETE BLOOD COUNT [id number] Baso Auto 0.2 % 9 Unknown COMPLETE BLOOD COUNT [id number] Neutrophil Abs 4.57 10e9/L Unknown COMPLETE BLOOD COUNT [id number] Lymphocyte Abs 2.72 10e9/L Unknown COMPLETE BLOOD COUNT [id number] Monocyte Abs 0.70 10e9/L 04/08 Unknown COMPLETE BLOOD COUNT [id number] Eosinophil Abs 0.20 10e9/L Unknown COMPLETE BLOOD COUNT [id number] RDW-SD 48.8 fL 9 Unknown COMPLETE BLOOD COUNT [id number] Basophil Abs 0.02 10e9/L 04/08 Unknown MICROALBUMIN URINE RANDOM 76041 U Microalbumin 19.3 mg/L 01/19/2018 Unknown MICROALBUMIN URINE RANDOM 47377 U Creatinine 96 mg/dL 1 Unknown MICROALBUMIN URINE RANDOM 91483 ALB/CR Ratio 20.1 mg/gCR 01/19/2018 Unknown LIPID GROUP 36276 Cholesterol 173 mg/dL 01/13/2018 Unkno wn LIPID GROUP 28994 Triglyceride 386 mg/dL 01/13/2018 Unkn own LIPID GROUP 04287 HDL CHOLESTEROL 37 mg/dL 01/13/2018 U nknown LIPID GROUP 86140 Chol/HDL Ratio 4.68 ratio 01/13/2018 U nknown LIPID GROUP 02497 NON-HDL Chol 136 mg/dL 01/13/2018 Unkn own LIPID GROUP 99081 LDL Cholesterol 59 mg/dL 01/13/2018 U nknown COMPLETE BLOOD COUNT [id number] WBC TNP:Client Request 01/13/2018 Unknown COMPLETE BLOOD COUNT [id number] RBC TNP:Client Request 01/13/2018 Unknown COMPLETE BLOOD COUNT [id number] HEMOGLOBIN TNP:Client Request 01/13/2018 Unknown COMPLETE BLOOD COUNT [id number] HEMATOCRIT TNP:Client Request 01/13/2018 Unknown COMPLETE BLOOD COUNT [id number] MCV TNP:Client Request 01/13/2018 Unknown COMPLETE BLOOD COUNT [id number] MCH TNP:Client Request 01/13/2018 Unknown COMPLETE BLOOD COUNT [id number] MCHC TNP:Client Request 01/13/2018 Unknown COMPLETE BLOOD COUNT [id number] PLATELET COUNT TNP:Client Req uest 01/13/2018 Unknown COMPLETE BLOOD COUNT [id number] Mean Plt Volume TNP:Client Re quest 01/13/2018 Unknown COMPLETE BLOOD COUNT [id number] Neut Auto TNP:Client Request 01/13/2018 Unknown COMPLETE BLOOD COUNT [id number] Lymph Auto TNP:Client Request 01/13/2018 Unknown COMPLETE BLOOD COUNT [id number] Hickman Auto TNP:Client Request 01/13/2018 Unknown COMPLETE BLOOD COUNT [id number] RDW TNP:Client Request 01/13/2018 Unknown COMPLETE BLOOD COUNT [id number] Eos Auto TNP:Client Request 01/13/2018 Unknown COMPLETE BLOOD COUNT [id number] Baso Auto TNP:Client Request 01/13/2018 Unknown COMPLETE BLOOD COUNT [id number] Neutrophil Abs TNP:Client Req uest 01/13/2018 Unknown COMPLETE BLOOD COUNT [id number] Lymphocyte Abs TNP:Client Req uest 01/13/2018 Unknown COMPLETE BLOOD COUNT [id number] Monocyte Abs TNP:Client Reque st 01/13/2018 Unknown COMPLETE BLOOD COUNT [id number] Eosinophil Abs TNP:Client Req uest 01/13/2018 Unknown COMPLETE BLOOD COUNT [id number] RDW-SD TNP:Client Request 01/13/2018 Unknown COMPLETE BLOOD COUNT [id number] Basophil Abs TNP:Client Reque st 01/13/2018 Unknown GLYCOSYLATED HEMOGLOBIN TEST 14861 Hgb A1c 59103-4 6.2 % 1 Unknown THYROID STIMULATING HORMONE 02915 TSH 2.764 uIU/mL 01/13/2018 Unknown COMPREHENSIVE METABOLIC 35766 AST 19 U/L 2017 Unknown COMPREHENSIVE METABOLIC 78427 ALT 21 U/L 2017 Unknown COMPREHENSIVE METABOLIC 73347 BUN 16 mg/dL 2017 Unknown COMPREHENSIVE METABOLIC 75353 ALBUMIN 4.2 g/dL 2017 Unknown COMPREHENSIVE METABOLIC 83023 CHLORIDE 105 mmol/L 01/13 Unknown COMPREHENSIVE METABOLIC 97353 Bili Total 0.5 mg/dL 01/13 Unknown COMPREHENSIVE METABOLIC 86523 ALK PHOS 85 U/L 2017 Unknown COMPREHENSIVE METABOLIC 49450 SODIUM 139 mmol/L 01/13 Unknown COMPREHENSIVE METABOLIC 09079 CREATININE 1.07 mg/dL 01/04 Unknown COMPREHENSIVE METABOLIC 13522 CALCIUM 9.2 mg/dL 2017 Unknown COMPREHENSIVE METABOLIC 52975 POTASSIUM 4.4 mmol/L 01/13 Unknown COMPREHENSIVE METABOLIC 72535 Total Protein 7.7 g/dL Unknown COMPREHENSIVE METABOLIC 06126 Glucose 130 mg/dL 2017 Unknown COMPREHENSIVE METABOLIC 59707 Bicarbonate 27 mmol/L 01/04 Unknown COMPREHENSIVE METABOLIC 45320 AGAP 7 mmol/L 2017 Unknown PSA EQUIMOLAR JERSON 99646 PSA Total 1.16 ng/mL 8 Unknown MEAN GLUC 9335347 Calc Mean Gluc 131 mg/dL 01/13/2018 Unkn own GFR CALC 5109096 GFR Non Afr Amr >60 mL/min 01/13/2018 Un known GFR CALC 4373554 GFR Afr Amr >60 mL/min 01/13/2018 Unknow n MEAN GLUC 3892334 Calc Mean Gluc 134 mg/dL 10/06/2017 Unkn own GFR CALC 0818043 GFR Non Afr Amr >60 mL/min 10/06/2017 Un known GFR CALC 6303579 GFR Afr Amr >60 mL/min 10/06/2017 Unknow n GLYCOSYLATED HEMOGLOBIN TEST 09437 Hgb A1c 89177-5 6.3 % 0 10/06/2017 Unknown VITAMIN B 12 50871 VITAMIN B12 1202 pg/mL 10/06/2017 Unk nown COMPLETE BLOOD COUNT [id number] WBC 7.4 10e9/L 10/07/19 18 Unknown COMPLETE BLOOD COUNT [id number] RBC 4.24 10e12/L 2017 Unknown COMPLETE BLOOD COUNT [id number] HEMOGLOBIN 13.5 g/dL 10/07/19 18 Unknown COMPLETE BLOOD COUNT 7931992 HEMATOCRIT 41.6 % 10/07/19 18 Unknown COMPLETE BLOOD COUNT 9040006 MCV 98.1 fL 8 Unknown COMPLETE BLOOD COUNT 8685091 MCH 31.8 pg 8 Unknown COMPLETE BLOOD COUNT 7742531 MCHC 32.5 g/dL 8 Unknown COMPLETE BLOOD COUNT [id number] PLATELET COUNT 223 10e9/L 06/2017 Unknown COMPLETE BLOOD COUNT [id number] Mean Plt Volume 11.9 fL 06/2017 Unknown COMPLETE BLOOD COUNT 8180993 Neut Auto 58.0 % 8 Unknown COMPLETE BLOOD COUNT [id number] Lymph Auto 29.7 % 10/07/19 18 Unknown COMPLETE BLOOD COUNT [id number] Hickman Auto 8.3 % 8 Unknown COMPLETE BLOOD COUNT [id number] RDW 14.0 % 8 Unknown COMPLETE BLOOD COUNT 0453000 Eos Auto 3.7 % 8 Unknown COMPLETE BLOOD COUNT [id number] Baso Auto 0.3 % 8 Unknown COMPLETE BLOOD COUNT [id number] Neutrophil Abs 4.29 10e9/L Unknown COMPLETE BLOOD COUNT 9227100 Lymphocyte Abs 2.20 10e9/L Unknown COMPLETE BLOOD COUNT [id number] Monocyte Abs 0.61 10e9/L 06/2017 Unknown COMPLETE BLOOD COUNT 0950507 Eosinophil Abs 0.27 10e9/L Unknown COMPLETE BLOOD COUNT 6195001 RDW-SD 48.6 fL 8 Unknown COMPLETE BLOOD COUNT [id number] Basophil Abs 0.02 10e9/L 06/2017 Unknown LIPID GROUP 98673 Cholesterol 216 mg/dL 10/06/2017 Unkno wn LIPID GROUP 65814 Triglyceride 335 mg/dL 10/06/2017 Unkn own LIPID GROUP 05621 HDL CHOLESTEROL 33 mg/dL 10/06/2017 U nknown LIPID GROUP 09239 Chol/HDL Ratio 6.55 ratio 10/06/2017 U nknown LIPID GROUP 62709 NON-HDL Chol 183 mg/dL 10/06/2017 Unkn own LIPID GROUP 96774 LDL Cholesterol 116 mg/dL 10/06/2017 U nknown COMPREHENSIVE METABOLIC 89991 AST 15 U/L 2017 Unknown COMPREHENSIVE METABOLIC 29027 ALT 15 U/L 2017 Unknown COMPREHENSIVE METABOLIC 09467 BUN 21 mg/dL 2017 Unknown COMPREHENSIVE METABOLIC 31705 ALBUMIN 4.1 g/dL 2017 Unknown COMPREHENSIVE METABOLIC 88369 CHLORIDE 107 mmol/L 10/06 Unknown COMPREHENSIVE METABOLIC 37208 Bili Total 0.6 mg/dL 10/06 Unknown COMPREHENSIVE METABOLIC 28158 ALK PHOS 68 U/L 2017 Unknown COMPREHENSIVE METABOLIC 69583 SODIUM 140 mmol/L 10/06 Unknown COMPREHENSIVE METABOLIC 73159 CREATININE 1.12 mg/dL 06/2017 Unknown COMPREHENSIVE METABOLIC 47947 CALCIUM 9.7 mg/dL 2017 Unknown COMPREHENSIVE METABOLIC 16944 POTASSIUM 4.6 mmol/L 10/06 Unknown COMPREHENSIVE METABOLIC 53435 Total Protein 6.6 g/dL Unknown COMPREHENSIVE METABOLIC 61931 Glucose 114 mg/dL 2017 Unknown COMPREHENSIVE METABOLIC 58342 Bicarbonate 26 mmol/L 06/2017 Unknown COMPREHENSIVE METABOLIC 64442 AGAP 7 mmol/L 2017 Unknown GLYCOSYLATED HEMOGLOBIN TEST 49202 Hgb A1c 95956-5 6.1 % 1 05/05/2016 Unknown GFR CALC 0154025 GFR Non Afr Amr >60 mL/min 03/05/2017 Un known GFR CALC 0336662 GFR Afr Amr >60 mL/min 03/05/2017 Unknow n MEAN GLUC 4414803 Calc Mean Gluc 128 mg/dL 03/05/2017 Unkn own COMPREHENSIVE METABOLIC 71194 AST 18 U/L 2016 Unknown COMPREHENSIVE METABOLIC 78901 ALT 20 U/L 2016 Unknown COMPREHENSIVE METABOLIC 36719 BUN 15 mg/dL 2016 Unknown COMPREHENSIVE METABOLIC 57000 ALBUMIN 4.3 g/dL 2016 Unknown COMPREHENSIVE METABOLIC 67345 CHLORIDE 105 mmol/L 03/05 Unknown COMPREHENSIVE METABOLIC 73778 Bili Total 0.5 mg/dL 03/05 Unknown COMPREHENSIVE METABOLIC 59788 ALK PHOS 57 U/L 2016 Unknown COMPREHENSIVE METABOLIC 68149 SODIUM 141 mmol/L 03/05 Unknown COMPREHENSIVE METABOLIC 95877 CREATININE 1.07 mg/dL 02/06 Unknown COMPREHENSIVE METABOLIC 06919 CALCIUM 9.3 mg/dL 2016 Unknown COMPREHENSIVE METABOLIC 44863 POTASSIUM 4.8 mmol/L 03/05 Unknown COMPREHENSIVE METABOLIC 52758 Total Protein 6.2 g/dL Unknown COMPREHENSIVE METABOLIC 78867 Glucose 118 mg/dL 2016 Unknown COMPREHENSIVE METABOLIC 73169 Bicarbonate 29 mmol/L 02/06 Unknown COMPREHENSIVE METABOLIC 43479 AGAP 7 mmol/L 2016 Unknown FREE T4 19811 T4 Free 1.38 ng/dL 03/05/2017 Unknown COMPLETE BLOOD COUNT [id number] WBC 8.4 10e9/L 03/05/20 17 Unknown COMPLETE BLOOD COUNT [id number] RBC 4.11 10e12/L 2016 Unknown COMPLETE BLOOD COUNT [id number] HEMOGLOBIN 12.8 g/dL 03/05/20 17 Unknown COMPLETE BLOOD COUNT 0365196 HEMATOCRIT 40.1 % 03/05/20 17 Unknown COMPLETE BLOOD COUNT 4422165 MCV 97.6 fL 7 Unknown COMPLETE BLOOD COUNT 3348832 MCH 31.1 pg 7 Unknown COMPLETE BLOOD COUNT 2299503 MCHC 31.9 g/dL 7 Unknown COMPLETE BLOOD COUNT 1873749 PLATELET COUNT 184 10e9/L Unknown COMPLETE BLOOD COUNT 9340074 Mean Plt Volume 11.3 fL Unknown COMPLETE BLOOD COUNT 1429707 Neut Auto 62.5 % 7 Unknown COMPLETE BLOOD COUNT 2546852 Lymph Auto 26.4 % 03/05/20 17 Unknown COMPLETE BLOOD COUNT 1514285 Hickman Auto 7.9 % 7 Unknown COMPLETE BLOOD COUNT 1050384 RDW 13.5 % 7 Unknown COMPLETE BLOOD COUNT 1889498 Eos Auto 3.0 % 7 Unknown COMPLETE BLOOD COUNT 5636556 Baso Auto 0.2 % 7 Unknown COMPLETE BLOOD COUNT 0354296 Neutrophil Abs 5.25 10e9/L Unknown COMPLETE BLOOD COUNT [id number] Lymphocyte Abs 2.22 10e9/L Unknown COMPLETE BLOOD COUNT [id number] Monocyte Abs 0.66 10e9/L 02/06 Unknown COMPLETE BLOOD COUNT 4166789 Eosinophil Abs 0.25 10e9/L Unknown COMPLETE BLOOD COUNT [id number] RDW-SD 46.7 fL 7 Unknown COMPLETE BLOOD COUNT [id number] Basophil Abs 0.02 10e9/L 02/06 Unknown THYROID STIMULATING HORMONE 08441 TSH 2.330 uIU/mL 03/05/2017 Unknown LIPID GROUP 76129 Cholesterol 135 mg/dL 03/05/2017 Unkno wn LIPID GROUP 44606 Triglyceride 297 mg/dL 03/05/2017 Unkn own LIPID GROUP 10117 HDL CHOLESTEROL 34 mg/dL 03/05/2017 U nknown LIPID GROUP 66256 Chol/HDL Ratio 3.97 ratio 03/05/2017 U nknown LIPID GROUP 86130 NON-HDL Chol 101 mg/dL 03/05/2017 Unkn own LIPID GROUP 53182 LDL Cholesterol 42 mg/dL 03/05/2017 U nknown GLYCOSYLATED HEMOGLOBIN TEST 05584 Hgb A1c 27357-4 6.5 % 1 05/07/2015 Unknown GFR CALC 0083924 GFR Non Afr Amr 55 mL/min 03/06/2016 Unk nown GFR CALC 4538564 GFR Afr Amr >60 mL/min 03/06/2016 Unknow n COMPLETE BLOOD COUNT 3807626 WBC 8.5 10e9/L 03/06/20 16 Unknown COMPLETE BLOOD COUNT [id number] RBC 4.32 10e12/L 2015 Unknown COMPLETE BLOOD COUNT 1442588 HEMOGLOBIN 13.5 g/dL 03/06/20 16 Unknown COMPLETE BLOOD COUNT 0090533 HEMATOCRIT 41.3 % 03/06/20 16 Unknown COMPLETE BLOOD COUNT 8053533 MCV 95.6 fL 6 Unknown COMPLETE BLOOD COUNT 5235057 MCH 31.3 pg 6 Unknown COMPLETE BLOOD COUNT 7387049 MCHC 32.7 g/dL 6 Unknown COMPLETE BLOOD COUNT 3091733 PLATELET COUNT 191 10e9/L 04/2015 Unknown COMPLETE BLOOD COUNT 0799841 Mean Plt Volume 11.7 fL 04/2015 Unknown COMPLETE BLOOD COUNT 1028454 Neut Auto 64.2 % 6 Unknown COMPLETE BLOOD COUNT 2534819 Lymph Auto 25.9 % 03/06/20 16 Unknown COMPLETE BLOOD COUNT 5945676 Hickman Auto 7.8 % 6 Unknown COMPLETE BLOOD COUNT 0561865 RDW 13.4 % 6 Unknown COMPLETE BLOOD COUNT 3173558 Eos Auto 2.0 % 6 Unknown COMPLETE BLOOD COUNT 0905014 Baso Auto 0.1 % 6 Unknown COMPLETE BLOOD COUNT [id number] Neutrophil Abs 5.46 10e9/L Unknown COMPLETE BLOOD COUNT 9431652 Lymphocyte Abs 2.20 10e9/L Unknown COMPLETE BLOOD COUNT [id number] Monocyte Abs 0.66 10e9/L 04/2015 Unknown COMPLETE BLOOD COUNT [id number] Eosinophil Abs 0.17 10e9/L Unknown COMPLETE BLOOD COUNT 8045677 RDW-SD 45.0 fL 6 Unknown COMPLETE BLOOD COUNT [id number] Basophil Abs 0.01 10e9/L 04/2015 Unknown FREE T4 94782 T4 Free 1.34 ng/dL 03/06/2016 Unknown MEAN GLUC 4283786 Calc Mean Gluc 140 mg/dL 03/06/2016 Unkn own COMPREHENSIVE METABOLIC 62928 AST 15 U/L 2015 Unknown COMPREHENSIVE METABOLIC 28421 ALT 18 U/L 2015 Unknown COMPREHENSIVE METABOLIC 23793 BUN 21 mg/dL 2015 Unknown COMPREHENSIVE METABOLIC 87760 ALBUMIN 4.3 g/dL 2015 Unknown COMPREHENSIVE METABOLIC 88055 CHLORIDE 103 mmol/L 03/06 Unknown COMPREHENSIVE METABOLIC 83478 Bili Total 0.4 mg/dL 03/06 Unknown COMPREHENSIVE METABOLIC 81269 ALK PHOS 68 U/L 2015 Unknown COMPREHENSIVE METABOLIC 29404 SODIUM 140 mmol/L 03/06 Unknown COMPREHENSIVE METABOLIC 74682 CREATININE 1.31 mg/dL 04/2015 Unknown COMPREHENSIVE METABOLIC 60125 CALCIUM 9.4 mg/dL 2015 Unknown COMPREHENSIVE METABOLIC 97947 POTASSIUM 4.8 mmol/L 03/06 Unknown COMPREHENSIVE METABOLIC 19597 Total Protein 6.6 g/dL Unknown COMPREHENSIVE METABOLIC 52166 Glucose 142 mg/dL 2015 Unknown COMPREHENSIVE METABOLIC 83102 Bicarbonate 29 mmol/L 04/2015 Unknown COMPREHENSIVE METABOLIC 48369 AGAP 8 mmol/L 2015 Unknown THYROID STIMULATING HORMONE 46895 TSH 2.288 uIU/mL 03/06/2016 Unknown LIPID GROUP 73093 Cholesterol 154 mg/dL 03/06/2016 Unkno wn LIPID GROUP 07701 Triglyceride 266 mg/dL 03/06/2016 Unkn own LIPID GROUP 20546 HDL CHOLESTEROL 38 mg/dL 03/06/2016 U nknown LIPID GROUP 79422 Chol/HDL Ratio 4.05 ratio 03/06/2016 U nknown LIPID GROUP 49683 NON-HDL Chol 116 mg/dL 03/06/2016 Unkn own LIPID GROUP 13572 LDL Cholesterol 63 mg/dL 03/06/2016 U nknown MEAN GLUC Mean Glucose 128 mg/dL 08/31/2015 Unknow n COMPLETE BLOOD COUNT 8526792 WBC 8.4 10e9/L 08/31/19 16 Unknown COMPLETE BLOOD COUNT [id number] RBC 4.12 10e12/L 2015 Unknown COMPLETE BLOOD COUNT [id number] HEMOGLOBIN 12.8 g/dL 08/31/19 16 Unknown COMPLETE BLOOD COUNT 4424362 HEMATOCRIT 39.6 % 08/31/19 16 Unknown COMPLETE BLOOD COUNT 3574153 MCV 96.1 fL 6 Unknown COMPLETE BLOOD COUNT 8774404 MCH 31.1 pg 6 Unknown COMPLETE BLOOD COUNT 2647139 MCHC 32.3 g/dL 6 Unknown COMPLETE BLOOD COUNT 7818525 PLATELET COUNT 184 10e9/L Unknown COMPLETE BLOOD COUNT 1355462 Mean Plt Volume 12.0 fL Unknown COMPLETE BLOOD COUNT 3196749 Neut Auto 59.8 % 6 Unknown COMPLETE BLOOD COUNT 5751455 Lymph Auto 27.9 % 08/31/19 16 Unknown COMPLETE BLOOD COUNT 9070567 Hickman Auto 9.1 % 6 Unknown COMPLETE BLOOD COUNT 8321608 RDW 13.6 % 6 Unknown COMPLETE BLOOD COUNT 0070604 Eos Auto 3.1 % 6 Unknown COMPLETE BLOOD COUNT 2929741 Baso Auto 0.1 % 6 Unknown COMPLETE BLOOD COUNT 5386981 Neutrophil Abs 5.02 10e9/L Unknown COMPLETE BLOOD COUNT 9745005 Lymphoctye Abs 2.34 10e9/L Unknown COMPLETE BLOOD COUNT 8122912 Monocyte Abs 0.76 10e9/L 08/05 Unknown COMPLETE BLOOD COUNT 0596352 Eosinophil Abs 0.26 10e9/L Unknown COMPLETE BLOOD COUNT 4367518 RDW-SD 46.3 fL 6 Unknown COMPLETE BLOOD COUNT 0585662 Basophil Abs 0.01 10e9/L 08/05 Unknown GLYCOSYLATED HEMOGLOBIN TEST 42038 Hgb A1c 33580-9 6.1 % 0 08/31/2015 Unknown GFR CALC 0098734 GFR Non Afr Amr >60 mL/min 08/31/2015 Un known GFR CALC 7112489 GFR Afr Amr >60 mL/min 08/31/2015 Unknow n FREE T4 62910 T4 Free 1.21 ng/dL 08/31/2015 Unknown THYROID STIMULATING HORMONE 93561 TSH 2.988 uIU/mL 08/31/2015 Unknown COMPREHENSIVE METABOLIC 08342 AST 16 U/L 2015 Unknown COMPREHENSIVE METABOLIC 89466 ALT 19 U/L 2015 Unknown COMPREHENSIVE METABOLIC 66357 BUN 17 mg/dL 2015 Unknown COMPREHENSIVE METABOLIC 23933 ALBUMIN 4.3 g/dL 2015 Unknown COMPREHENSIVE METABOLIC 31867 CHLORIDE 107 mmol/L 08/30 Unknown COMPREHENSIVE METABOLIC 76803 Bili Total 0.4 mg/dL 08/30 Unknown COMPREHENSIVE METABOLIC 83340 ALK PHOS 66 U/L 2015 Unknown COMPREHENSIVE METABOLIC 71464 SODIUM 140 mmol/L 08/30 Unknown COMPREHENSIVE METABOLIC 64119 CREATININE 1.07 mg/dL 08/05 Unknown COMPREHENSIVE METABOLIC 91724 CALCIUM 9.5 mg/dL 2015 Unknown COMPREHENSIVE METABOLIC 15906 POTASSIUM 4.5 mmol/L 08/30 Unknown COMPREHENSIVE METABOLIC 45522 Total Protein 6.7 g/dL Unknown COMPREHENSIVE METABOLIC 90740 Glucose 122 mg/dL 2015 Unknown COMPREHENSIVE METABOLIC 67299 Bicarbonate 26 mmol/L 08/05 Unknown COMPREHENSIVE METABOLIC 99400 AGAP 7 mmol/L 2015 Unknown LIPID GROUP 35833 Cholesterol 171 mg/dL 08/31/2015 Unkno wn LIPID GROUP 01246 Triglyceride 428 mg/dL 08/31/2015 Unkn own LIPID GROUP 88085 HDL CHOLESTEROL 35 mg/dL 08/31/2015 U nknown LIPID GROUP 59002 Chol/HDL Ratio 4.89 ratio 08/31/2015 U nknown LIPID GROUP 05642 NON-HDL Chol 136 mg/dL 08/31/2015 Unkn own LIPID GROUP 71699 LDL Cholesterol 50 mg/dL 08/31/2015 U nknown PSA EQUIMOLAR JERSON 88499 PSA Total 0.47 ng/mL 6 Unknown GFR CALC 9848320 GFR AA >60 ML/MIN 01/12/2015 Unknown GFR CALC 9869274 GFR NON-AA >60 ML/MIN 01/12/2015 Unknown COMPREHENSIVE METABOLIC 00465 AST 18 U/L 2014 Unknown COMPREHENSIVE METABOLIC 51066 ALT 19 IU/L 2014 Unknown COMPREHENSIVE METABOLIC 52409 BUN 19 MG/DL 2014 Unknown COMPREHENSIVE METABOLIC 31826 ALBUMIN 4.7 GM/DL 2014 Unknown COMPREHENSIVE METABOLIC 52748 CHLORIDE 104 MMOL/L 01/12 Unknown COMPREHENSIVE METABOLIC 18127 BILI TOT 0.8 MG/DL 2014 Unknown COMPREHENSIVE METABOLIC 29077 ALK PHOS 58 U/L 2014 Unknown COMPREHENSIVE METABOLIC 91969 SODIUM 139 MMOL/L 01/12 Unknown COMPREHENSIVE METABOLIC 58760 CREATININE 1.09 MG/DL 12/2014 Unknown COMPREHENSIVE METABOLIC 98584 CALCIUM 9.6 MG/DL 2014 Unknown COMPREHENSIVE METABOLIC 82538 POTASSIUM 4.4 MMOL/L 01/12 Unknown COMPREHENSIVE METABOLIC 59475 PROT TOT 6.7 GM/DL 2014 Unknown COMPREHENSIVE METABOLIC 86856 Glucose 109 MG/DL 2014 Unknown COMPREHENSIVE METABOLIC 45565 BICARB 27 MMOL/L 2014 Unknown COMPREHENSIVE METABOLIC 51462 ANION GAP 8 MEQ/L 2014 Unknown LIPID GROUP 26806 HDL TEST 36 MG/DL 01/12/2015 Unknown LIPID GROUP 75796 TRIG 220 MG/DL 01/12/2015 Unknown LIPID GROUP 20267 TEST LDL 58 MG/DL 01/12/2015 Unknown LIPID GROUP 75232 CHOL 138 MG/DL 01/12/2015 Unknown LIPID GROUP 97317 RCHOL/HDL 3.83 RATIO 01/12/2015 Unknow n LIPID GROUP 49257 NON-HDL CH 102 MG/DL 01/12/2015 Unknow n GLYCOSYLATED HEMOGLOBIN TEST 35476 A1C HPLC 57683-6 6.1 % 1 Unknown COMPLETE BLOOD COUNT 9894684 WBC 7.1 10e9/L 01/13/20 15 Unknown COMPLETE BLOOD COUNT 7200439 RBC 4.38 10e12/L 2014 Unknown COMPLETE BLOOD COUNT 7438265 HGB 13.7 g/dL 5 Unknown COMPLETE BLOOD COUNT 5677184 HCT DET 41.3 % 5 Unknown COMPLETE BLOOD COUNT 3511489 MCV 94.3 fL 5 Unknown COMPLETE BLOOD COUNT 1847167 MCH 31.3 pg 5 Unknown COMPLETE BLOOD COUNT 0352471 MCHC 33.2 g/dL 5 Unknown COMPLETE BLOOD COUNT 3159036 PLT 174 10e9/L 01/13/20 15 Unknown COMPLETE BLOOD COUNT 7056954 MPV 11.8 fL 5 Unknown COMPLETE BLOOD COUNT 3037250 SAMIR % 61.3 % 5 Unknown COMPLETE BLOOD COUNT 6142020 LY % 28.3 % 5 Unknown COMPLETE BLOOD COUNT 6780639 MON % 7.6 % 5 Unknown COMPLETE BLOOD COUNT 7038933 EOS % 2.7 % 5 Unknown COMPLETE BLOOD COUNT 4192542 BASO % 0.1 % 5 Unknown COMPLETE BLOOD COUNT 2906603 RDW 13.1 % 5 Unknown COMPLETE BLOOD COUNT 1893526 ABS SAMIR 4.35 10e9/L 015 Unknown COMPLETE BLOOD COUNT 3989614 ABS LYMPH 2.01 10e9/L 015 Unknown COMPLETE BLOOD COUNT [id number] ABS MONO 0.54 10e9/L 015 Unknown COMPLETE BLOOD COUNT 0346630 ABS EOS 0.19 10e9/L 015 Unknown COMPLETE BLOOD COUNT 2993416 ABS BASO 0.01 10e9/L 015 Unknown COMPLETE BLOOD COUNT 9664665 RDW-SD 43.9 fL 5 Unknown GLYCOSYLATED HEMOGLOBIN TEST 12081 A1C HPLC 48861-5 6.1 % 0 08/15/2014 Unknown COMPLETE BLOOD COUNT [id number] WBC 9.7 10e9/L 08/16/19 15 Unknown COMPLETE BLOOD COUNT 6873450 RBC 4.29 10e12/L 2014 Unknown COMPLETE BLOOD COUNT 0268648 HGB 13.3 g/dL 5 Unknown COMPLETE BLOOD COUNT 3981429 HCT DET 40.5 % 5 Unknown COMPLETE BLOOD COUNT 7116484 MCV 94.4 fL 5 Unknown COMPLETE BLOOD COUNT 5688351 MCH 31.0 pg 5 Unknown COMPLETE BLOOD COUNT 9065555 MCHC 32.8 g/dL 5 Unknown COMPLETE BLOOD COUNT 1038650 PLT 227 10e9/L 08/16/19 15 Unknown COMPLETE BLOOD COUNT 6101329 MPV 11.0 fL 5 Unknown COMPLETE BLOOD COUNT 9216755 SAMIR % 66.4 % 5 Unknown COMPLETE BLOOD COUNT 7565537 LY % 23.7 % 5 Unknown COMPLETE BLOOD COUNT 9997769 MON % 8.1 % 5 Unknown COMPLETE BLOOD COUNT 5339583 EOS % 1.6 % 5 Unknown COMPLETE BLOOD COUNT 0321573 BASO % 0.2 % 5 Unknown COMPLETE BLOOD COUNT 1853694 RDW 13.4 % 5 Unknown COMPLETE BLOOD COUNT 6133281 ABS SAMIR 6.44 10e9/L 015 Unknown COMPLETE BLOOD COUNT 2407300 ABS LYMPH 2.30 10e9/L 015 Unknown COMPLETE BLOOD COUNT 5495074 ABS MONO 0.79 10e9/L 015 Unknown COMPLETE BLOOD COUNT 6278324 ABS EOS 0.16 10e9/L 015 Unknown COMPLETE BLOOD COUNT 9606973 ABS BASO 0.02 10e9/L 015 Unknown COMPLETE BLOOD COUNT 2035862 RDW-SD 44.7 fL 5 Unknown COMPREHENSIVE METABOLIC 50432 AST 17 U/L 2014 Unknown COMPREHENSIVE METABOLIC 64635 ALT 23 IU/L 2014 Unknown COMPREHENSIVE METABOLIC 72849 BUN 16 MG/DL 2014 Unknown COMPREHENSIVE METABOLIC 14611 ALBUMIN 4.3 GM/DL 2014 Unknown COMPREHENSIVE METABOLIC 29306 CHLORIDE 107 MMOL/L 08/15 Unknown COMPREHENSIVE METABOLIC 65012 BILI TOT 0.4 MG/DL 2014 Unknown COMPREHENSIVE METABOLIC 44495 ALK PHOS 91 U/L 2014 Unknown COMPREHENSIVE METABOLIC 25291 SODIUM 139 MMOL/L 08/15 Unknown COMPREHENSIVE METABOLIC 45252 CREATININE 1.07 MG/DL 08/04 Unknown COMPREHENSIVE METABOLIC 29216 CALCIUM 9.6 MG/DL 2014 Unknown COMPREHENSIVE METABOLIC 16360 POTASSIUM 4.6 MMOL/L 08/15 Unknown COMPREHENSIVE METABOLIC 68344 PROT TOT 6.7 GM/DL 2014 Unknown COMPREHENSIVE METABOLIC 08263 Glucose 111 MG/DL 2014 Unknown COMPREHENSIVE METABOLIC 96124 BICARB 27 MMOL/L 2014 Unknown COMPREHENSIVE METABOLIC 47757 ANION GAP 5 MEQ/L 2014 Unknown GFR CALC 7229603 GFR AA >60 ML/MIN 08/15/2014 Unknown GFR CALC 7316678 GFR NON-AA >60 ML/MIN 08/15/2014 Unknown THYROID STIMULATING HORMONE 19595 TSH 1.598 uIU/ML 08/15/2014 Unknown LIPID GROUP 64365 HDL TEST 33 MG/DL 08/15/2014 Unknown LIPID GROUP 78662 TRIG 187 MG/DL 08/15/2014 Unknown LIPID GROUP 79097 TEST LDL 58 MG/DL 08/15/2014 Unknown LIPID GROUP 94068 CHOL 128 MG/DL 08/15/2014 Unknown LIPID GROUP 48521 RCHOL/HDL 3.88 RATIO 08/15/2014 Unknow n LIPID GROUP 44351 NON-HDL CH 95 MG/DL 08/15/2014 Unknow n PSA EQUIMOLAR JERSON 30119 PSA EQ 0.70 NG/ML 5 Unknown FREE T4 05116 FREE T4 1.32 NG/DL 08/15/2014 Unknown GFR CALC 0880769 GFR AA >60 ML/MIN 12/14/2013 Unknown GFR CALC 0138654 GFR NON-AA 58.0L ML/MIN 12/14/2013 Unkno wn COMPLETE BLOOD COUNT 2676899 WBC 8.7 10e9/L 12/15/19 14 Unknown COMPLETE BLOOD COUNT 7231394 RBC 4.32 10e12/L 2013 Unknown COMPLETE BLOOD COUNT 9289411 HGB 13.5 g/dL 4 Unknown COMPLETE BLOOD COUNT 2214316 HCT DET 40.6 % 4 Unknown COMPLETE BLOOD COUNT 3575739 MCV 94.0 fL 4 Unknown COMPLETE BLOOD COUNT 9495016 MCH 31.3 pg 4 Unknown COMPLETE BLOOD COUNT 0394258 MCHC 33.3 g/dL 4 Unknown COMPLETE BLOOD COUNT 0747390 PLT 205 10e9/L 12/15/19 14 Unknown COMPLETE BLOOD COUNT 7430771 MPV 11.7 fL 4 Unknown COMPLETE BLOOD COUNT 3023845 SAMIR % 62.5 % 4 Unknown COMPLETE BLOOD COUNT 5184575 LY % 26.9 % 4 Unknown COMPLETE BLOOD COUNT 4824721 MON % 8.8 % 4 Unknown COMPLETE BLOOD COUNT 3625626 EOS % 1.7 % 4 Unknown COMPLETE BLOOD COUNT 6817600 BASO % 0.1 % 4 Unknown COMPLETE BLOOD COUNT 5026232 RDW 13.4 % 4 Unknown COMPLETE BLOOD COUNT 0257781 ABS SAMIR 5.44 10e9/L 014 Unknown COMPLETE BLOOD COUNT 2112510 ABS LYMPH 2.34 10e9/L 014 Unknown COMPLETE BLOOD COUNT [id number] ABS MONO 0.77 10e9/L 014 Unknown COMPLETE BLOOD COUNT [id number] ABS EOS 0.15 10e9/L 014 Unknown COMPLETE BLOOD COUNT [id number] ABS BASO 0.01 10e9/L 014 Unknown COMPLETE BLOOD COUNT [id number] RDW-SD 44.7 fL 4 Unknown COMPREHENSIVE METABOLIC 52105 AST 14 U/L 2013 Unknown COMPREHENSIVE METABOLIC 45208 ALT 12 IU/L 2013 Unknown COMPREHENSIVE METABOLIC 02596 BUN 24 MG/DL 2013 Unknown COMPREHENSIVE METABOLIC 78114 ALBUMIN 4.5 GM/DL 2013 Unknown COMPREHENSIVE METABOLIC 59372 CHLORIDE 104 MMOL/L 12/14 Unknown COMPREHENSIVE METABOLIC 71363 BILI TOT 0.6 MG/DL 2013 Unknown COMPREHENSIVE METABOLIC 19702 ALK PHOS 82 U/L 2013 Unknown COMPREHENSIVE METABOLIC 24360 SODIUM 135 MMOL/L 12/14 Unknown COMPREHENSIVE METABOLIC 92939 CREATININE 1.25 MG/DL 12/05 Unknown COMPREHENSIVE METABOLIC 41389 CALCIUM 9.8 MG/DL 2013 Unknown COMPREHENSIVE METABOLIC 41372 POTASSIUM 4.7 MMOL/L 12/14 Unknown COMPREHENSIVE METABOLIC 97918 PROT TOT 6.7 GM/DL 2013 Unknown COMPREHENSIVE METABOLIC 66835 Glucose 126 MG/DL 2013 Unknown COMPREHENSIVE METABOLIC 74477 BICARB 27 MMOL/L 2013 Unknown COMPREHENSIVE METABOLIC 35261 ANION GAP 4 MEQ/L 2013 Unknown THYROID STIMULATING HORMONE 43235 TSH 3.281 uIU/ML 12/14/2013 Unknown FREE T4 50432 FREE T4 1.28 NG/DL 12/14/2013 Unknown LIPID GROUP 28996 HDL TEST 36 MG/DL 12/14/2013 Unknown LIPID GROUP 81735 TRIG 253 MG/DL 12/14/2013 Unknown LIPID GROUP 50442 TEST LDL 56 MG/DL 12/14/2013 Unknown LIPID GROUP 27744 CHOL 143 MG/DL 12/14/2013 Unknown LIPID GROUP 39125 RCHOL/HDL 3.97 RATIO 12/14/2013 Unknow n LIPID GROUP 11521 NON-HDL CH 107 MG/DL 12/14/2013 Unknow n GLYCOSYLATED HEMOGLOBIN TEST 73656 A1C HPLC 59710-7 6.1 % 0 12/14/2013 Unknown GLYCOSYLATED HEMOGLOBIN TEST 46985 A1C HPLC 24232-1 6.0 % 0 06/08/2013 Unknown LIPID GROUP 50802 HDL TEST 39 MG/DL 06/08/2013 Unknown LIPID GROUP 61275 TRIG 166 MG/DL 06/08/2013 Unknown LIPID GROUP 60957 TEST LDL 86 MG/DL 06/08/2013 Unknown LIPID GROUP 82226 CHOL 158 MG/DL 06/08/2013 Unknown LIPID GROUP 37742 RCHOL/HDL 4.05 RATIO 06/08/2013 Unknow n COMPREHENSIVE METABOLIC 06751 AST 17 U/L 2013 Unknown COMPREHENSIVE METABOLIC 49189 ALT 25 IU/L 2013 Unknown COMPREHENSIVE METABOLIC 72556 BUN 18 MG/DL 2013 Unknown COMPREHENSIVE METABOLIC 60000 ALBUMIN 4.5 GM/DL 2013 Unknown COMPREHENSIVE METABOLIC 05771 CHLORIDE 103 MMOL/L 06/08 Unknown COMPREHENSIVE METABOLIC 28486 BILI TOT 0.4 MG/DL 2013 Unknown COMPREHENSIVE METABOLIC 95600 ALK PHOS 72 U/L 2013 Unknown COMPREHENSIVE METABOLIC 32886 SODIUM 137 MMOL/L 06/08 Unknown COMPREHENSIVE METABOLIC 30903 CREATININE 1.07 MG/DL 08/2013 Unknown COMPREHENSIVE METABOLIC 24029 CALCIUM 9.7 MG/DL 2013 Unknown COMPREHENSIVE METABOLIC 11345 POTASSIUM 4.7 MMOL/L 06/08 Unknown COMPREHENSIVE METABOLIC 66741 PROT TOT 6.6 GM/DL 2013 Unknown COMPREHENSIVE METABOLIC 76136 Glucose 130 MG/DL 2013 Unknown COMPREHENSIVE METABOLIC 88365 BICARB 25 MMOL/L 2013 Unknown COMPREHENSIVE METABOLIC 86472 ANION GAP 9 MEQ/L 2013 Unknown FREE T4 81581 FREE T4 1.29 NG/DL 06/08/2013 Unknown THYROID STIMULATING HORMONE 35148 TSH 2.445 uIU/ML 06/08/2013 Unknown GFR CALC 8794000 GFR AA >60 ML/MIN 06/08/2013 Unknown GFR CALC 2825301 GFR NON-AA >60 ML/MIN 06/08/2013 Unknown COMPLETE BLOOD COUNT 2241977 WBC 8.2 10e9/L 06/09/19 14 Unknown COMPLETE BLOOD COUNT [id number] RBC 4.63 10e12/L 2013 Unknown COMPLETE BLOOD COUNT 1222211 HGB 14.1 g/dL 4 Unknown COMPLETE BLOOD COUNT [id number] HCT DET 42.6 % 4 Unknown COMPLETE BLOOD COUNT 5464496 MCV 92.0 fL 4 Unknown COMPLETE BLOOD COUNT 7810473 MCH 30.5 pg 4 Unknown COMPLETE BLOOD COUNT 1662518 MCHC 33.1 g/dL 4 Unknown COMPLETE BLOOD COUNT [id number] PLT 222 10e9/L 06/09/19 14 Unknown COMPLETE BLOOD COUNT 7148950 MPV 10.8 fL 4 Unknown COMPLETE BLOOD COUNT 9968044 SAMIR % 60.8 % 4 Unknown COMPLETE BLOOD COUNT 3156781 LY % 29.2 % 4 Unknown COMPLETE BLOOD COUNT [id number] MON % 7.6 % 4 Unknown COMPLETE BLOOD COUNT [id number] EOS % 2.3 % 4 Unknown COMPLETE BLOOD COUNT 0466001 BASO % 0.1 % 4 Unknown COMPLETE BLOOD COUNT 0254285 RDW 13.7 % 4 Unknown COMPLETE BLOOD COUNT 0343992 ABS SAMIR 4.99 10e9/L 014 Unknown COMPLETE BLOOD COUNT [id number] ABS LYMPH 2.39 10e9/L 014 Unknown COMPLETE BLOOD COUNT 2784625 ABS MONO 0.62 10e9/L 014 Unknown COMPLETE BLOOD COUNT [id number] ABS EOS 0.19 10e9/L 014 Unknown COMPLETE BLOOD COUNT [id number] ABS BASO 0.01 10e9/L 014 Unknown COMPLETE BLOOD COUNT [id number] RDW-SD 45.2 fL 4 Unknown LIPID GROUP 55442 HDL TEST 40 MG/DL 11/11/2012 Unknown LIPID GROUP 61855 TRIG 153 MG/DL 11/11/2012 Unknown LIPID GROUP 52399 TEST LDL 71 MG/DL 11/11/2012 Unknown LIPID GROUP 27275 CHOL 142 MG/DL 11/11/2012 Unknown LIPID GROUP 15740 RCHOL/HDL 3.55 RATIO 11/11/2012 Unknow n GFR CALC 0252554 GFR AA >60 ML/MIN 11/11/2012 Unknown GFR CALC 8050658 GFR NON-AA 57.0L ML/MIN 11/11/2012 Unkno wn HEMOGLOBIN A1C (GLYCOSYLATED) 5150272 A1C HPLC 75404-3 5.9 % 11/11/2012 Unknown THYROID STIMULATING HORMONE 84686 TSH 2.439 uIU/ML 11/11/2012 Unknown COMPLETE BLOOD COUNT 2383691 WBC 8.5 10e9/L 11/12/19 13 Unknown COMPLETE BLOOD COUNT [id number] RBC 4.42 10e12/L 2012 Unknown COMPLETE BLOOD COUNT 0750415 HGB 13.7 g/dL 3 Unknown COMPLETE BLOOD COUNT 9372958 HCT DET 41.3 % 3 Unknown COMPLETE BLOOD COUNT 4992765 MCV 93.4 fL 3 Unknown COMPLETE BLOOD COUNT 7881361 MCH 31.0 pg 3 Unknown COMPLETE BLOOD COUNT 4579918 MCHC 33.2 g/dL 3 Unknown COMPLETE BLOOD COUNT 6137259 PLT 220 10e9/L 11/12/19 13 Unknown COMPLETE BLOOD COUNT 8196936 MPV 10.8 fL 3 Unknown COMPLETE BLOOD COUNT 4141263 SAMIR % 60.4 % 3 Unknown COMPLETE BLOOD COUNT 6862994 LY % 28.7 % 3 Unknown COMPLETE BLOOD COUNT 4111554 MON % 8.0 % 3 Unknown COMPLETE BLOOD COUNT 6416940 EOS % 2.8 % 3 Unknown COMPLETE BLOOD COUNT 0789883 BASO % 0.1 % 3 Unknown COMPLETE BLOOD COUNT 2158602 RDW 13.7 % 3 Unknown COMPLETE BLOOD COUNT [id number] ABS SAMIR 5.13 10e9/L 013 Unknown COMPLETE BLOOD COUNT 1270418 ABS LYMPH 2.44 10e9/L 013 Unknown COMPLETE BLOOD COUNT [id number] ABS MONO 0.68 10e9/L 013 Unknown COMPLETE BLOOD COUNT 8490711 ABS EOS 0.24 10e9/L 013 Unknown COMPLETE BLOOD COUNT [id number] ABS BASO 0.01 10e9/L 013 Unknown COMPLETE BLOOD COUNT 6640204 RDW-SD 45.6 fL 3 Unknown COMPREHENSIVE METABOLIC 85096 AST 19 U/L 2012 Unknown COMPREHENSIVE METABOLIC 57292 ALT 28 IU/L 2012 Unknown COMPREHENSIVE METABOLIC 43431 BUN 31 MG/DL 2012 Unknown COMPREHENSIVE METABOLIC 26449 ALBUMIN 4.7 GM/DL 2012 Unknown COMPREHENSIVE METABOLIC 65462 CHLORIDE 106 MMOL/L 11/11 Unknown COMPREHENSIVE METABOLIC 37056 BILI TOT 0.5 MG/DL 2012 Unknown COMPREHENSIVE METABOLIC 49858 ALK PHOS 64 U/L 2012 Unknown COMPREHENSIVE METABOLIC 29265 SODIUM 136 MMOL/L 11/11 Unknown COMPREHENSIVE METABOLIC 50411 CREATININE 1.27 MG/DL 11/2012 Unknown COMPREHENSIVE METABOLIC 59783 CALCIUM 9.4 MG/DL 2012 Unknown COMPREHENSIVE METABOLIC 08543 POTASSIUM 4.9 MMOL/L 11/11 Unknown COMPREHENSIVE METABOLIC 49542 PROT TOT 6.7 GM/DL 2012 Unknown COMPREHENSIVE METABOLIC 41787 Glucose 108 MG/DL 2012 Unknown COMPREHENSIVE METABOLIC 49996 BICARB 21 MMOL/L 2012 Unknown COMPREHENSIVE METABOLIC 19343 ANION GAP 9 MEQ/L 2012 Unknown THYROID STIMULATING HORMONE 66421 TSH 2.572 uIU/ML 05/04/2012 Unknown COMPLETE BLOOD COUNT 9001991 WBC 9.3 10e9/L 05/04/19 13 Unknown COMPLETE BLOOD COUNT [id number] RBC 4.43 10e12/L 2012 Unknown COMPLETE BLOOD COUNT 5394175 HGB 14.2 g/dL 3 Unknown COMPLETE BLOOD COUNT 1935365 HCT DET 41.1 % 3 Unknown COMPLETE BLOOD COUNT 8735250 MCV 92.8 fL 3 Unknown COMPLETE BLOOD COUNT 2143845 MCH 32.1 pg 3 Unknown COMPLETE BLOOD COUNT 4278858 MCHC 34.5 g/dL 3 Unknown COMPLETE BLOOD COUNT 6852396 PLT 193 10e9/L 05/04/19 13 Unknown COMPLETE BLOOD COUNT 6177134 MPV 10.8 fL 3 Unknown COMPLETE BLOOD COUNT 3868648 SAMIR % 63.0 % 3 Unknown COMPLETE BLOOD COUNT 9003344 LY % 25.3 % 3 Unknown COMPLETE BLOOD COUNT 0670417 MON % 9.1 % 3 Unknown COMPLETE BLOOD COUNT 1990247 EOS % 2.5 % 3 Unknown COMPLETE BLOOD COUNT 7856362 BASO % 0.1 % 3 Unknown COMPLETE BLOOD COUNT 0187276 RDW 12.6 % 3 Unknown COMPLETE BLOOD COUNT 1823711 ABS SAMIR 5.86 10e9/L 013 Unknown COMPLETE BLOOD COUNT 2545247 ABS LYMPH 2.35 10e9/L 013 Unknown COMPLETE BLOOD COUNT 9017721 ABS MONO 0.85 10e9/L 013 Unknown COMPLETE BLOOD COUNT 9691887 ABS EOS 0.23 10e9/L 013 Unknown COMPLETE BLOOD COUNT [id number] ABS BASO 0.01 10e9/L 013 Unknown COMPLETE BLOOD COUNT 3379383 RDW-SD 41.2 fL 3 Unknown LIPID GROUP 31346 HDL TEST 35 MG/DL 05/04/2012 Unknown LIPID GROUP 97027 TRIG 236 MG/DL 05/04/2012 Unknown LIPID GROUP 32567 TEST LDL 64 MG/DL 05/04/2012 Unknown LIPID GROUP 89178 CHOL 146 MG/DL 05/04/2012 Unknown LIPID GROUP 45585 RCHOL/HDL 4.17 RATIO 05/04/2012 Unknow n COMPREHENSIVE METABOLIC 89932 AST 23 U/L 2012 Unknown COMPREHENSIVE METABOLIC 70112 ALT 33 IU/L 2012 Unknown COMPREHENSIVE METABOLIC 87493 BUN 16 MG/DL 2012 Unknown COMPREHENSIVE METABOLIC 76235 ALBUMIN 4.8 GM/DL 2012 Unknown COMPREHENSIVE METABOLIC 34493 CHLORIDE 104 MMOL/L 05/04 Unknown COMPREHENSIVE METABOLIC 58345 BILI TOT 0.5 MG/DL 2012 Unknown COMPREHENSIVE METABOLIC 37270 ALK PHOS 70 U/L 2012 Unknown COMPREHENSIVE METABOLIC 18939 SODIUM 138 MMOL/L 05/04 Unknown COMPREHENSIVE METABOLIC 74632 CREATININE 1.08 MG/DL 04/07 Unknown COMPREHENSIVE METABOLIC 23309 CALCIUM 9.7 MG/DL 2012 Unknown COMPREHENSIVE METABOLIC 86817 POTASSIUM 4.4 MMOL/L 05/04 Unknown COMPREHENSIVE METABOLIC 88411 PROT TOT 6.8 GM/DL 2012 Unknown COMPREHENSIVE METABOLIC 35419 Glucose 114 MG/DL 2012 Unknown COMPREHENSIVE METABOLIC 84931 BICARB 27 MMOL/L 2012 Unknown COMPREHENSIVE METABOLIC 43732 ANION GAP 7 MEQ/L 2012 Unknown FREE T4 08255 FREE T4 1.11 NG/DL 05/04/2012 Unknown GFR CALC 6056868 GFR AA >60 ML/MIN 05/04/2012 Unknown GFR CALC 2577722 GFR NON-AA >60 ML/MIN 05/04/2012 Unknown GLYCOSYLATED HEMOGLOBIN TEST 98219 A1C HPLC 72154-8 5.8 % 0 10/29/2011 Unknown COMPREHENSIVE METABOLIC 78965 AST 17 U/L 2011 Unknown COMPREHENSIVE METABOLIC 63717 ALT 21 IU/L 2011 Unknown COMPREHENSIVE METABOLIC 85072 BUN 17 MG/DL 2011 Unknown COMPREHENSIVE METABOLIC 52192 ALBUMIN 4.8 GM/DL 2011 Unknown COMPREHENSIVE METABOLIC 05605 CHLORIDE 106 MMOL/L 10/28 Unknown COMPREHENSIVE METABOLIC 87985 BILI TOT 0.6 MG/DL 2011 Unknown COMPREHENSIVE METABOLIC 45008 ALK PHOS 57 U/L 2011 Unknown COMPREHENSIVE METABOLIC 12602 SODIUM 139 MMOL/L 10/28 Unknown COMPREHENSIVE METABOLIC 04935 CREATININE 1.08 MG/DL 10/05 Unknown COMPREHENSIVE METABOLIC 57652 CALCIUM 9.6 MG/DL 2011 Unknown COMPREHENSIVE METABOLIC 43884 POTASSIUM 4.4 MMOL/L 10/28 Unknown COMPREHENSIVE METABOLIC 11007 PROT TOT 6.9 GM/DL 2011 Unknown COMPREHENSIVE METABOLIC 44683 Glucose 104 MG/DL 2011 Unknown COMPREHENSIVE METABOLIC 22785 BICARB 25 MMOL/L 2011 Unknown COMPREHENSIVE METABOLIC 25045 ANION GAP 8 MEQ/L 2011 Unknown LIPID GROUP 23626 HDL TEST 39 MG/DL 10/29/2011 Unknown LIPID GROUP 53783 TRIG 176 MG/DL 10/29/2011 Unknown LIPID GROUP 01398 TEST LDL 70 MG/DL 10/29/2011 Unknown LIPID GROUP 23971 CHOL 144 MG/DL 10/29/2011 Unknown LIPID GROUP 13780 RCHOL/HDL 3.69 RATIO 10/29/2011 Unknow n GFR CALC 7488454 GFR AA >60 ML/MIN 10/29/2011 Unknown GFR CALC 4900488 GFR NON-AA >60 ML/MIN 10/29/2011 Unknown GFR CALC 1129485 GFR AA >60 ML/MIN 03/14/2011 Unknown GFR CALC 3386942 GFR NON-AA >60 ML/MIN 03/14/2011 Unknown GLYCOSYLATED HEMOGLOBIN TEST 97421 A1C HPLC 96731-1 5.7 % 1 05/15/2010 Unknown COMPREHENSIVE METABOLIC 13132 AST 18 U/L 2010 Unknown COMPREHENSIVE METABOLIC 79612 ALT 25 IU/L 2010 Unknown COMPREHENSIVE METABOLIC 10705 BUN 15 MG/DL 2010 Unknown COMPREHENSIVE METABOLIC 72347 ALBUMIN 4.6 GM/DL 2010 Unknown COMPREHENSIVE METABOLIC 37229 CHLORIDE 107 MMOL/L 03/14 Unknown COMPREHENSIVE METABOLIC 11120 BILI TOT 0.6 MG/DL 2010 Unknown COMPREHENSIVE METABOLIC 22538 ALK PHOS 54 U/L 2010 Unknown COMPREHENSIVE METABOLIC 85420 SODIUM 140 MMOL/L 03/14 Unknown COMPREHENSIVE METABOLIC 18890 CREATININE 1.02 MG/DL 12/2010 Unknown COMPREHENSIVE METABOLIC 71493 CALCIUM 9.4 MG/DL 2010 Unknown COMPREHENSIVE METABOLIC 25474 POTASSIUM 4.6 MMOL/L 03/14 Unknown COMPREHENSIVE METABOLIC 31486 PROT TOT 7.0 GM/DL 2010 Unknown COMPREHENSIVE METABOLIC 87453 Glucose 107 MG/DL 2010 Unknown COMPREHENSIVE METABOLIC 74700 BICARB 28 MMOL/L 2010 Unknown COMPREHENSIVE METABOLIC 78376 ANION GAP 5 MEQ/L 2010 Unknown LIPID GROUP 87866 HDL TEST 39 MG/DL 03/14/2011 Unknown LIPID GROUP 05323 TRIG 157 MG/DL 03/14/2011 Unknown LIPID GROUP 15566 TEST LDL 66 MG/DL 03/14/2011 Unknown LIPID GROUP 02763 CHOL 136 MG/DL 03/14/2011 Unknown LIPID GROUP 98204 RCHOL/HDL 3.49 RATIO 03/14/2011 Unknow n GFR CALC 2440117 GFR AA >60 ML/MIN 11/11/2010 Unknown GFR CALC 2923196 GFR NON-AA >60 ML/MIN 11/11/2010 Unknown LIPID GROUP 19912 HDL TEST 39 MG/DL 11/11/2010 Unknown LIPID GROUP 97777 TRIG 212 MG/DL 11/11/2010 Unknown LIPID GROUP 20639 TEST LDL 67 MG/DL 11/11/2010 Unknown LIPID GROUP 47603 CHOL 148 MG/DL 11/11/2010 Unknown LIPID GROUP 45548 RCHOL/HDL 3.79 RATIO 11/11/2010 Unknow n COMPREHENSIVE METABOLIC 56945 AST 17 U/L 2010 Unknown COMPREHENSIVE METABOLIC 51699 ALT 21 IU/L 2010 Unknown COMPREHENSIVE METABOLIC 90015 BUN 16 MG/DL 2010 Unknown COMPREHENSIVE METABOLIC 34120 ALBUMIN 4.6 GM/DL 2010 Unknown COMPREHENSIVE METABOLIC 39135 CHLORIDE 106 MMOL/L 11/11 Unknown COMPREHENSIVE METABOLIC 05209 BILI TOT 0.5 MG/DL 2010 Unknown COMPREHENSIVE METABOLIC 99849 ALK PHOS 61 U/L 2010 Unknown COMPREHENSIVE METABOLIC 99581 SODIUM 139 MMOL/L 11/11 Unknown COMPREHENSIVE METABOLIC 66855 CREATININE 1.00 MG/DL 11/2010 Unknown COMPREHENSIVE METABOLIC 28162 CALCIUM 9.5 MG/DL 2010 Unknown COMPREHENSIVE METABOLIC 52940 POTASSIUM 4.5 MMOL/L 11/11 Unknown COMPREHENSIVE METABOLIC 84936 PROT TOT 6.9 GM/DL 2010 Unknown COMPREHENSIVE METABOLIC 31092 Glucose 111 MG/DL 2010 Unknown COMPREHENSIVE METABOLIC 50391 BICARB 26 MMOL/L 2010 Unknown COMPREHENSIVE METABOLIC 00133 ANION GAP 7 MEQ/L 2010 Unknown HEMOGLOBIN A1C (GLYCOSYLATED) 49687 A1C [facility] 94260-1 5.6 % 07/24/2010 Unknown GFR CALC 6504234 GFR AA >60 ML/MIN 07/23/2010 Unknown GFR CALC 9099177 GFR NON-AA >60 ML/MIN 07/23/2010 Unknown COMPREHENSIVE METABOLIC 30464 AST 19 U/L 2010 Unknown COMPREHENSIVE METABOLIC 14413 ALT 33 IU/L 2010 Unknown COMPREHENSIVE METABOLIC 23908 BUN 14 MG/DL 2010 Unknown COMPREHENSIVE METABOLIC 03269 ALBUMIN 4.7 GM/DL 2010 Unknown COMPREHENSIVE METABOLIC 19999 CHLORIDE 107 MMOL/L 07/23 Unknown COMPREHENSIVE METABOLIC 44835 BILI TOT 0.4 MG/DL 2010 Unknown COMPREHENSIVE METABOLIC 91427 ALK PHOS 80 U/L 2010 Unknown COMPREHENSIVE METABOLIC 30862 SODIUM 141 MMOL/L 07/23 Unknown COMPREHENSIVE METABOLIC 70322 CREATININE 0.97 MG/DL 07/05 Unknown COMPREHENSIVE METABOLIC 37893 CALCIUM 9.5 MG/DL 2010 Unknown COMPREHENSIVE METABOLIC 96925 POTASSIUM 4.1 MMOL/L 07/23 Unknown COMPREHENSIVE METABOLIC 79664 PROT TOT 6.8 GM/DL 2010 Unknown COMPREHENSIVE METABOLIC 76381 Glucose 120 MG/DL 2010 Unknown COMPREHENSIVE METABOLIC 94912 BICARB 26 MMOL/L 2010 Unknown COMPREHENSIVE METABOLIC 03321 ANION GAP 8 MEQ/L 2010 Unknown LIPID GROUP 73545 HDL TEST 41 MG/DL 07/23/2010 Unknown LIPID GROUP 24839 TRIG 175 MG/DL 07/23/2010 Unknown LIPID GROUP 68618 TEST LDL 72 MG/DL 07/23/2010 Unknown LIPID GROUP 43013 CHOL 148 MG/DL 07/23/2010 Unknown LIPID GROUP 24382 RCHOL/HDL 3.61 RATIO 07/23/2010 Unknow n PSA FREE AND TOTAL 12402|37765 % FREE PSA FOOTNOTE % 011 Unknown PSA FREE AND TOTAL 88808|86167 XPSA TOTAL 0.83 NG/ML 011 Unknown PSA FREE AND TOTAL 38119|44637 XPSA FREE 0.13 NG/ML 04/26/19 11 Unknown VITAMIN D TOTAL (25 HYDROXY) 24326 VIT D TOTL 26 NG/ML 04/22/2010 Unknown TESTOSTERONE TOTAL 72838 TESTOS TO 387 NG/DL 04/19/2010 Unknown GFR CALC 6252745 GFR AA >60 ML/MIN 04/19/2010 Unknown GFR CALC 6551401 GFR NON-AA >60 ML/MIN 04/19/2010 Unknown COMPLETE BLOOD COUNT 93022 WBC 7.0 10e9/L 04/19/19 11 Unknown COMPLETE BLOOD COUNT 09804 RBC 5.07 10e12/L 2010 Unknown COMPLETE BLOOD COUNT 87616 HGB 15.6 g/dL 1 Unknown COMPLETE BLOOD COUNT 04618 HCT DET 46.2 % 1 Unknown COMPLETE BLOOD COUNT 11589 MCV 91.1 fL 1 Unknown COMPLETE BLOOD COUNT 02906 MCH 30.8 pg 1 Unknown COMPLETE BLOOD COUNT 83771 MCHC 33.8 g/dL 1 Unknown COMPLETE BLOOD COUNT 48510 PLT 205 10e9/L 04/19/19 11 Unknown COMPLETE BLOOD COUNT 23449 MPV 11.1 fL 1 Unknown COMPLETE BLOOD COUNT 64377 SAMIR % 62.4 % 1 Unknown COMPLETE BLOOD COUNT 31862 LY % 28.5 % 1 Unknown COMPLETE BLOOD COUNT 43624 MON % 6.9 % 1 Unknown COMPLETE BLOOD COUNT 52794 EOS % 2.1 % 1 Unknown COMPLETE BLOOD COUNT 30863 BASO % 0.1 % 1 Unknown COMPLETE BLOOD COUNT 92026 RDW 13.4 % 1 Unknown COMPLETE BLOOD COUNT 17662 ABS SAMIR 4.37 10e9/L 011 Unknown COMPLETE BLOOD COUNT 69386 ABS LYMPH 2.00 10e9/L 011 Unknown COMPLETE BLOOD COUNT 95385 ABS MONO 0.48 10e9/L 011 Unknown COMPLETE BLOOD COUNT 47830 ABS EOS 0.15 10e9/L 011 Unknown COMPLETE BLOOD COUNT 40477 ABS BASO 0.01 10e9/L 011 Unknown COMPLETE BLOOD COUNT 61420 RDW-SD 43.8 fL 1 Unknown LIPID GROUP 87010 HDL TEST 39 MG/DL 04/19/2010 Unknown LIPID GROUP 05124 TRIG 244 MG/DL 04/19/2010 Unknown LIPID GROUP 13804 TEST LDL 168 MG/DL 04/19/2010 Unknown LIPID GROUP 24623 CHOL 256 MG/DL 04/19/2010 Unknown LIPID GROUP 19422 RCHOL/HDL 6.56 RATIO 04/19/2010 Unknow n COMPREHENSIVE METABOLIC 85482 AST 28 U/L 2010 Unknown COMPREHENSIVE METABOLIC 16439 ALT 46 IU/L 2010 Unknown COMPREHENSIVE METABOLIC 39638 BUN 14 MG/DL 2010 Unknown COMPREHENSIVE METABOLIC 26373 ALBUMIN 4.9 GM/DL 2010 Unknown COMPREHENSIVE METABOLIC 79290 CHLORIDE 104 MMOL/L 04/19 Unknown COMPREHENSIVE METABOLIC 73895 BILI TOT 0.8 MG/DL 2010 Unknown COMPREHENSIVE METABOLIC 94275 ALK PHOS 71 U/L 2010 Unknown COMPREHENSIVE METABOLIC 95667 SODIUM 139 MMOL/L 04/19 Unknown COMPREHENSIVE METABOLIC 68291 CREATININE 1.06 MG/DL 04/06 Unknown COMPREHENSIVE METABOLIC 70831 CALCIUM 9.9 MG/DL 2010 Unknown COMPREHENSIVE METABOLIC 38884 POTASSIUM 4.3 MMOL/L 04/19 Unknown COMPREHENSIVE METABOLIC 35023 PROT TOT 7.2 GM/DL 2010 Unknown COMPREHENSIVE METABOLIC 85922 Glucose 99 MG/DL 2010 Unknown COMPREHENSIVE METABOLIC 61201 BICARB 28 MMOL/L 2010 Unknown COMPREHENSIVE METABOLIC 25401 ANION GAP 7 MEQ/L 2010 Unknown FREE T4 78643 FREE T4 1.26 NG/DL 04/19/2010 Unknown Procedures Procedure Codes Date ROUTINE VENIPUNCTURE CPT-4: 99089 05/24/2019 COMPREHEN METABOLIC PANEL CPT-4: 61744 05/24/2019 A1C HPLC CPT-4: 54695 05/24/2019 FLU VACC PRSV FREE INC ANTIG 65 AND OLDER CPT-4: 42422 01/26/2019 FLU VACC PRSV FREE INC ANTIG 65 AND OLDER CPT-4: 64812 01/26/2019 ADMIN INFLUENZA VIRUS VAC CPT-4: G0008 01/26/2019 ROUTINE VENIPUNCTURE CPT-4: 27020 01/26/2019 COMPREHEN METABOLIC PANEL CPT-4: 24716 01/26/2019 COMPLETE CBC W/AUTO DIFF WBC CPT-4: 59014 01/26/2019 LIPID PANEL CPT-4: 31050 01/26/2019 A1C HPLC CPT-4: 20938 01/26/2019 ROUTINE VENIPUNCTURE CPT-4: 06305 09/30/2018 METABOLIC PANEL TOTAL CA CPT-4: 78559 09/30/2018 URINALYSIS NONAUTO W/O SCOPE CPT-4: 72624 08/19/2018 URINE CULTURE/ COLONY COUNT CPT-4: 31917 08/19/2018 MICROALBUMIN QUANTITATIVE CPT-4: 58364 08/19/2018 ROUTINE VENIPUNCTURE CPT-4: 46441 08/16/2018 ASSAY THYROID STIM HORMONE CPT-4: 31427 08/16/2018 COMPREHEN METABOLIC PANEL CPT-4: 94815 08/16/2018 COMPLETE CBC W/AUTO DIFF WBC CPT-4: 31196 08/16/2018 LIPID PANEL CPT-4: 87203 08/16/2018 A1C HPLC CPT-4: 06128 08/16/2018 LIPID PANEL CPT-4: 79565 05/05/2018 COMPREHEN METABOLIC PANEL CPT-4: 29794 05/05/2018 ROUTINE VENIPUNCTURE CPT-4: 59698 05/05/2018 A1C HPLC CPT-4: 36431 05/05/2018 COMPLETE CBC W/AUTO DIFF WBC CPT-4: 41128 05/05/2018 ASSAY THYROID STIM HORMONE CPT-4: 69085 05/05/2018 MICROALBUMIN QUANTITATIVE CPT-4: 83304 01/19/2018 PRESCRIP TRANSMIT VIA ERX SY CPT-4: G8553 01/19/2018 ROUTINE VENIPUNCTURE CPT-4: 30459 01/13/2018 COMPREHEN METABOLIC PANEL CPT-4: 63153 01/13/2018 A1C HPLC CPT-4: 04852 01/13/2018 LIPID PANEL CPT-4: 35844 01/13/2018 ASSAY OF PSA TOTAL CPT-4: 46097 01/13/2018 ASSAY THYROID STIM HORMONE CPT-4: 79486 01/13/2018 ROUTINE VENIPUNCTURE CPT-4: 74136 10/06/2017 COMPREHEN METABOLIC PANEL CPT-4: 20688 10/06/2017 COMPLETE CBC W/AUTO DIFF WBC CPT-4: 90925 10/06/2017 LIPID PANEL CPT-4: 78660 10/06/2017 A1C HPLC CPT-4: 76782 10/06/2017 VITAMIN B-12 CPT-4: 15829 10/06/2017 DESTRUCT PREMALG LESION (Cryosurgery) CPT-4: 82640 DESTRUCT PREMALG LES 2-14 CPT-4: 03261 04/23/2017 PRESCRIP TRANSMIT VIA ERX SY CPT-4: G8553 03/11/2017 ROUTINE VENIPUNCTURE CPT-4: 72273 03/05/2017 ASSAY OF FREE THYROXINE CPT-4: 57129 03/05/2017 ASSAY THYROID STIM HORMONE CPT-4: 31853 03/05/2017 COMPREHEN METABOLIC PANEL CPT-4: 86089 03/05/2017 COMPLETE CBC W/AUTO DIFF WBC CPT-4: 15611 03/05/2017 LIPID PANEL CPT-4: 92767 03/05/2017 A1C HPLC CPT-4: 34687 03/05/2017 ROUTINE VENIPUNCTURE CPT-4: 40616 06/16/2016 ASSAY OF FREE THYROXINE CPT-4: 47828 06/16/2016 ASSAY THYROID STIM HORMONE CPT-4: 37817 06/16/2016 COMPREHEN METABOLIC PANEL CPT-4: 40705 06/16/2016 COMPLETE CBC W/AUTO DIFF WBC CPT-4: 73101 06/16/2016 LIPID PANEL CPT-4: 92736 06/16/2016 A1C HPLC CPT-4: 77836 06/16/2016 ROUTINE VENIPUNCTURE CPT-4: 45618 03/06/2016 ASSAY OF FREE THYROXINE CPT-4: 44665 03/06/2016 ASSAY THYROID STIM HORMONE CPT-4: 95053 03/06/2016 COMPREHEN METABOLIC PANEL CPT-4: 60314 03/06/2016 COMPLETE CBC W/AUTO DIFF WBC CPT-4: 78065 03/06/2016 LIPID PANEL CPT-4: 38061 03/06/2016 A1C HPLC CPT-4: 58027 03/06/2016 PRESCRIP TRANSMIT VIA ERX SY CPT-4: G8553 09/10/2015 PNEUMOCOCCAL VACC 23 ROSANNE IM CPT-4: 90165 09/06/2015 ADMIN PNEUMOCOCCAL VACCINE CPT-4: G0009 09/06/2015 ROUTINE VENIPUNCTURE CPT-4: 60266 08/31/2015 COMPREHEN METABOLIC PANEL CPT-4: 40595 08/31/2015 COMPLETE CBC W/AUTO DIFF WBC CPT-4: 02235 08/31/2015 LIPID PANEL CPT-4: 03204 08/31/2015 ASSAY OF PSA TOTAL CPT-4: 12725 08/31/2015 A1C HPLC CPT-4: 18297 08/31/2015 ASSAY OF FREE THYROXINE CPT-4: 82592 08/31/2015 ASSAY THYROID STIM HORMONE CPT-4: 65774 08/31/2015 PRESCRIP TRANSMIT VIA ERX SY CPT-4: G8553 06/29/2015 FLU VACC PRSV FREE INC ANTIG 65 AND OLDER CPT-4: 66585 01/17/2015 PNEUMOCOCCAL VACC 13 ROSANNE IM CPT-4: 66517 01/17/2015 ADMIN INFLUENZA VIRUS VAC CPT-4: G0008 01/17/2015 ADMIN PNEUMOCOCCAL VACCINE CPT-4: G0009 01/17/2015 DESTRUCT PREMALG LESION (Cryosurgery) CPT-4: 59383 PRESCRIP TRANSMIT VIA ERX SY CPT-4: G8553 01/17/2015 ROUTINE VENIPUNCTURE CPT-4: 56824 01/12/2015 COMPREHEN METABOLIC PANEL CPT-4: 79319 01/12/2015 COMPLETE CBC W/AUTO DIFF WBC CPT-4: 69246 01/12/2015 LIPID PANEL CPT-4: 92715 01/12/2015 A1C HPLC CPT-4: 84379 01/12/2015 DESTRUCT PREMALG LESION (Cryosurgery) CPT-4: 38974 ROUTINE VENIPUNCTURE CPT-4: 84161 08/15/2014 COMPREHEN METABOLIC PANEL CPT-4: 09197 08/15/2014 COMPLETE CBC W/AUTO DIFF WBC CPT-4: 68395 08/15/2014 LIPID PANEL CPT-4: 44071 08/15/2014 A1C HPLC CPT-4: 85729 08/15/2014 ASSAY OF PSA TOTAL CPT-4: 24573 08/15/2014 ASSAY OF FREE THYROXINE CPT-4: 00325 08/15/2014 ASSAY THYROID STIM HORMONE CPT-4: 06131 08/15/2014 ROUTINE VENIPUNCTURE CPT-4: 17861 12/14/2013 ASSAY OF FREE THYROXINE CPT-4: 89432 12/14/2013 ASSAY THYROID STIM HORMONE CPT-4: 54997 12/14/2013 COMPREHEN METABOLIC PANEL CPT-4: 18051 12/14/2013 COMPLETE CBC W/AUTO DIFF WBC CPT-4: 29333 12/14/2013 LIPID PANEL CPT-4: 65813 12/14/2013 A1C HPLC CPT-4: 64565 12/14/2013 ROUTINE VENIPUNCTURE CPT-4: 86070 06/08/2013 ASSAY OF FREE THYROXINE CPT-4: 62273 06/08/2013 ASSAY THYROID STIM HORMONE CPT-4: 09978 06/08/2013 COMPREHEN METABOLIC PANEL CPT-4: 40435 06/08/2013 COMPLETE CBC W/AUTO DIFF WBC CPT-4: 73961 06/08/2013 LIPID PANEL CPT-4: 24781 06/08/2013 A1C HPLC CPT-4: 91629 06/08/2013 ROUTINE VENIPUNCTURE CPT-4: 81712 11/11/2012 COMPREHEN METABOLIC PANEL CPT-4: 58862 11/11/2012 COMPLETE CBC W/AUTO DIFF WBC CPT-4: 40778 11/11/2012 LIPID PANEL CPT-4: 48038 11/11/2012 A1C GLYCOSYLATED HEMOGLOBIN TEST CPT-4: 72776 013 ASSAY THYROID STIM HORMONE CPT-4: 73798 11/11/2012 ROUTINE VENIPUNCTURE CPT-4: 50862 05/04/2012 ASSAY OF FREE THYROXINE CPT-4: 97896 05/04/2012 ASSAY THYROID STIM HORMONE CPT-4: 48414 05/04/2012 COMPREHEN METABOLIC PANEL CPT-4: 28154 05/04/2012 COMPLETE CBC W/AUTO DIFF WBC CPT-4: 66994 05/04/2012 LIPID PANEL CPT-4: 70999 05/04/2012 DESTRUCT PREMALG LESION (Cryosurgery) CPT-4: 28670 DESTRUCT PREMALG LES 2-14 CPT-4: 48963 03/02/2012 ROUTINE VENIPUNCTURE CPT-4: 95045 10/29/2011 COMPREHEN METABOLIC PANEL CPT-4: 24870 10/29/2011 LIPID PANEL CPT-4: 76334 10/29/2011 A1C GLYCOSYLATED HEMOGLOBIN TEST CPT-4: 87194 012 ROUTINE VENIPUNCTURE CPT-4: 98586 07/29/2011 COMPREHEN METABOLIC PANEL CPT-4: 96230 07/29/2011 LIPID PANEL CPT-4: 21179 07/29/2011 A1C GLYCOSYLATED HEMOGLOBIN TEST CPT-4: 76198 012 ROUTINE VENIPUNCTURE CPT-4: 99600 03/14/2011 COMPREHEN METABOLIC PANEL CPT-4: 71299 03/14/2011 LIPID PANEL CPT-4: 99595 03/14/2011 A1C GLYCOSYLATED HEMOGLOBIN TEST CPT-4: 10238 011 ROUTINE VENIPUNCTURE CPT-4: 72833 11/11/2010 COMPREHEN METABOLIC PANEL CPT-4: 87541 11/11/2010 LIPID PANEL CPT-4: 40624 11/11/2010 URINE CULTURE/ COLONY COUNT CPT-4: 57112 11/11/2010 URINALYSIS NONAUTO W/O SCOPE CPT-4: 41995 10/29/2010 URINE CULTURE/ COLONY COUNT CPT-4: 11534 10/29/2010 LIPID PANEL CPT-4: 96634 07/23/2010 COMPREHEN METABOLIC PANEL CPT-4: 31963 07/23/2010 ROUTINE VENIPUNCTURE CPT-4: 01478 07/23/2010 ROUTINE VENIPUNCTURE CPT-4: 28663 04/26/2010 PSA FREE AND TOTAL CPT-4: 61066|22714 04/26/2010 OCCULT BLOOD FECES CPT-4: 97649 04/24/2010 ROUTINE VENIPUNCTURE CPT-4: 76252 04/19/2010 COMPLETE CBC W/AUTO DIFF WBC CPT-4: 22118 04/19/2010 COMPREHEN METABOLIC PANEL CPT-4: 27023 04/19/2010 LIPID PANEL CPT-4: 04715 04/19/2010 TESTOSTERONE TOTAL - MALE CPT-4: 39053 04/19/2010 ASSAY THYROID STIM HORMONE CPT-4: 68792 04/19/2010 ASSAY OF FREE THYROXINE CPT-4: 27118 04/19/2010 VITAMIN D TOTAL (25 HYDROXY) CPT-4: 10139 04/19/2010 Vital Signs Date Vital 01/31/2019 Blood [...] 1: 112/70 Code: 8480-6 BMI: 28.9 Code: 49455-5 Heart Rate 1: 60 bpm Height: 6'3" Respiratory Rate: 20 bpm SpO2: 95% Tempera ture: 36.6 (C) / 97.9 (F) Weight: 231 lbs 01/19/2018 Blood Pressure 1: 150/82 Code: 8480-6 Heart Rate 1: 63 bpm Respiratory Rate: 18 bpm SpO2: 98% Temperature: 36.0 (C) / 96.8 (F) We ight: 225 lbs 10/15/2017 Blood Pressure 1: 126/82 Code: 8480-6 BMI: 27.9 Code: 69238-3 Heart Rate 1: 64 bpm Height: 6'3" Respiratory Rate: 20 bpm SpO2: 96% Tempera ture: 36.7 (C) / 98.1 (F) Weight: 223 lbs 04/23/2017 Blood Pressure 1: 136/74 Code: 8480-6 BMI: 28.7 Code: 65504-3 Heart Rate 1: 76 bpm Height: 6'3" Respiratory Rate: 20 bpm Temperature: 37 .0 (C) / 98.6 (F) Weight: 230 lbs 03/11/2017 Blood Pressure 1: 136/66 Code: 8480-6 BMI: 28.6 Code: 11702-2 Heart Rate 1: 60 bpm Height: 6'3" Respiratory Rate: 20 bpm Temperature: 36 .7 (C) / 98.1 (F) Weight: 229 lbs 07/09/2016 Blood Pressure 1: 132/80 Code: 8480-6 BMI: 27.7 Code: 46956-9 Heart Rate 1: 64 bpm Height: 6'3" Respiratory Rate: 20 bpm SpO2: 96% Tempera ture: 36.9 (C) / 98.4 (F) Weight: 222 lbs 03/10/2016 Blood Pressure 1: 134/78 Code: 8480-6 BMI: 28.5 Code: 36701-4 Heart Rate 1: 60 bpm Height: 6'3" Respiratory Rate: 20 bpm SpO2: 96% Tempera ture: 36.7 (C) / 98.1 (F) Weight: 228 lbs 09/12/2015 Blood Pressure 1: 13678 Code: 8480-6 Heart Rate 1: 84 bpm Height: Respiratory Rate: 24 bpm SpO2: 97% Temperature: 36.4 (C) / 97.6 (F) We ight: 09/10/2015 Blood Pressure 1: 124/76 Code: 8480-6 BMI: 28.5 Code: 90380-6 Heart Rate 1: 76 bpm Height: 6'3" Respiratory Rate: 24 bpm SpO2: 97% Tempera ture: 36.4 (C) / 97.6 (F) Weight: 228 lbs 09/06/2015 Blood Pressure 1: 12482 Code: 8480-6 BMI: 29.0 Code: 42934-1 Heart Rate 1: 66 bpm Height: 6'3" Respiratory Rate: 20 bpm SpO2: 97% Tempera ture: 36.4 (C) / 97.6 (F) Weight: 232 lbs 06/29/2015 Blood Pressure 1: 124/82 Code: 8480-6 Heart Rate 1: 88 bpm Height: Respiratory Rate: 20 bpm Temperature: 36.7 (C) / 98.1 (F) Weight: 01/17/2015 Blood Pressure 1: 124/78 Code: 8480-6 BMI: 27.7 Code: 85888-0 Heart Rate 1: 76 bpm Height: 6'3" Respiratory Rate: 20 bpm Temperature: 36 .6 (C) / 97.8 (F) Weight: 222 lbs 09/19/2014 Blood Pressure 1: 128/80 Code: 8480-6 BMI: 27.4 Code: 37058-1 Heart Rate 1: 64 bpm Height: 6'3" Respiratory Rate: 20 bpm Temperature: 36 .4 (C) / 97.6 (F) Weight: 219 lbs 10/17/2013 Blood Pressure 1: 116/70 Code: 8480-6 Heart Rate 1: 88 bpm Respiratory Rate: 20 bpm Temperature: 36.9 (C) / 98.4 (F) Weight: 220 lbs 09/23/2013 Blood Pressure 1: 124/80 Code: 8480-6 BMI: 28.7 Code: 25509-1 Heart Rate 1: 76 bpm Height: 6'3" Respiratory Rate: 20 bpm Temperature: 36 .8 (C) / 98.2 (F) Weight: 230 lbs 07/22/2013 Blood Pressure 1: 128/70 Code: 8480-6 He art Rate 1: 78 bpm 06/20/2013 Blood Pressure 1: 144/86 Code: 8480-6 BMI: 28.7 Code: 54020-5 Heart Rate 1: 92 bpm Height: 6'3" Respiratory Rate: 20 bpm Temperature: 36 .4 (C) / 97.6 (F) Weight: 230 lbs 11/25/2012 Blood Pressure 1: 128/80 Code: 8480-6 BMI: 27.5 Code: 55404-9 Heart Rate 1: 92 bpm Height: 6'3" Respiratory Rate: 20 bpm Temperature: 36 .8 (C) / 98.3 (F) Weight: 220 lbs 08/27/2012 Blood Pressure 1: 142/80 Code: 8480-6 BMI: 27.7 Code: 36074-8 Heart Rate 1: 76 bpm Height: 6'3" Respiratory Rate: 20 bpm Temperature: 36 .8 (C) / 98.3 (F) Weight: 222 lbs 05/11/2012 Blood Pressure 1: 136/80 Code: 8480-6 BMI: 27.7 Code: 32326-5 Heart Rate 1: 76 bpm Height: 6'3" Respiratory Rate: 20 bpm Temperature: 36 .8 (C) / 98.3 (F) Weight: 222 lbs 03/02/2012 Blood Pressure 1: 136/70 Code: 8480-6 BMI: 28.0 Code: 49764-1 Heart Rate 1: 80 bpm Height: 6'3" Respiratory Rate: 20 bpm Temperature: 36 .6 (C) / 97.8 (F) Weight: 224 lbs 12/11/2011 Blood Pressure 1: 142/80 Code: 8480-6 BMI: 27.1 Code: 11710-9 Heart Rate 1: 84 bpm Height: 6'3" Respiratory Rate: 20 bpm Temperature: 36 .9 (C) / 98.4 (F) Weight: 217 lbs 08/14/2011 Blood Pressure 1: 130/82 Code: 8480-6 He art Rate 1: 64 bpm 07/29/2011 Blood Pressure 1: 132/64 Code: 8480-6 BMI: 26.7 Code: 35773-7 Heart Rate 1: 72 bpm Height: 6'3" [...] 1: 142/88 Code: 8480-6 BMI: 26.4 Code: 25232-4 Heart Rate 1: 80 bpm Height: 6'3" [...] labs Encounters Encounter Performer Location Codes Date ([id number]) NURSE/OUTPATIENT VISIT EST Diagnosis: Type 2 diabetes mellitus without complications[ICD10: E11.9] Diagnosis: Essential (primary) hypertension[ICD10: I10] Diagnosis: Mixed hyperlipidemia[ICD10: E78.2] Najma OG [employer] [facility] CPT-4: 21848 05/24/2019 ([id number]) OFFICE/OUTPATIENT VISIT EST Diagnosis: Essential (primary) hypertension[ICD10: I10] Diagnosis: Type 2 diabetes mellitus without complications[ICD10: E11.9] Diagnosis: Mixed hyperlipidemia[ICD10: E78.2] Najma OG [employer] [facility] CPT-4: 04206 01/31/2019 ([id number]) NURSE/OUTPATIENT VISIT EST Diagnosis: Mixed hyperlipidemia[ICD10: E78.2] Diagnosis: Type 2 diabetes mellitus without complications[ICD10: E11.9] Diagnosis: Essential (primary) hypertension[ICD10: I10] Diagnosis: Chronic kidney disease, unspecified[ICD10: N18.9] Najma OG DO [facility] CPT-4: 81519 01/26/2019 ([id number]) NURSE/OUTPATIENT VISIT EST Diagnosis: Chronic kidney disease, unspecified[ICD10: N18.9] Diagnosis: Essential (primary) hypertension[ICD10: I10] Najma OG [employer] [facility] CPT-4: 49645 09/30/2018 ([id number]) OFFICE/OUTPATIENT VISIT EST Diagnosis: Essential (primary) hypertension[ICD10: I10] Diagnosis: Type 2 diabetes mellitus without complications[ICD10: E11.9] Diagnosis: Mixed hyperlipidemia[ICD10: E78.2] Diagnosis: Unspecified kidney failure[ICD10: N19] Najma HAQUE ADELA Matilda OG [employer] [facility] CPT-4: 09227 08/19/2018 ([id number]) NURSE/OUTPATIENT VISIT EST Diagnosis: Essential (primary) hypertension[ICD10: I10] Diagnosis: Type 1 diabetes mellitus with unspecified complications[ICD10: E10.8] Diagnosis: Mixed hyperlipidemia[ICD10: E78.2] Najma OG [employer] [facility] CPT-4: 68834 08/16/2018 ([id number]) OFFICE/OUTPATIENT VISIT EST Diagnosis: Essential (primary) hypertension[ICD10: I10] Diagnosis: Type 2 diabetes mellitus without complications[ICD10: E11.9] Diagnosis: Mixed hyperlipidemia[ICD10: E78.2] Najma OG [employer] CPT-4: 85208 05/10/2018 ([id number]) NURSE/OUTPATIENT VISIT EST Diagnosis: Essential (primary) hypertension[ICD10: I10] Diagnosis: Mixed hyperlipidemia[ICD10: E78.2] Diagnosis: Type 1 diabetes mellitus with unspecified complications[ICD10: E10.8] Najma OG DO [employer] CPT-4: 98589 05/05/2018 ([id number]) OFFICE/OUTPATIENT VISIT EST Diagnosis: Type 2 diabetes mellitus without complications[ICD10: E11.9] Diagnosis: Mixed hyperlipidemia[ICD10: E78.2] Diagnosis: Nicotine dependence, unspecified, uncomplicated[ICD10: F17.200] Diagnosis: Essential (primary) hypertension[ICD10: I10] Najma OG [facility] CPT-4: 51221 01/19/2018 ([id number]) NURSE/OUTPATIENT VISIT EST Diagnosis: Type 1 diabetes mellitus with unspecified complications[ICD10: E10.8] Diagnosis: Essential (primary) hypertension[ICD10: I10] Diagnosis: Male erectile disorder[ICD10: F52.21] Diagnosis: Encounter for screening for malignant neoplasm of prostate[ICD10: Z12.5] Najma OG [employer] CPT-4: 87868 01/13/2018 ([id number]) OFFICE/OUTPATIENT VISIT EST Diagnosis: Type 2 diabetes mellitus without complications[ICD10: E11.9] Diagnosis: Essential (primary) hypertension[ICD10: I10] Diagnosis: Mixed hyperlipidemia[ICD10: E78.2] Najma OG [employer] CPT-4: 19238 10/15/2017 ([id number]) NURSE/OUTPATIENT VISIT EST Diagnosis: Type 2 diabetes mellitus without complications[ICD10: E11.9] Diagnosis: Mixed hyperlipidemia[ICD10: E78.2] Diagnosis: Essential (primary) hypertension[ICD10: I10] Diagnosis: Glossitis[ICD10: K14.0] Najma THAKKAR [facility] CPT-4: 16726 10/06/2017 ([id number]) OFFICE/OUTPATIENT VISIT EST Diagnosis: Type 2 diabetes mellitus without complications[ICD10: E11.9] Diagnosis: Mixed hyperlipidemia[ICD10: E78.2] Diagnosis: Essential (primary) hypertension[ICD10: I10] Najma OG [employer] CPT-4: 94410 03/11/2017 ([id number]) OFFICE/OUTPATIENT VISIT EST Diagnosis: Type 1 diabetes mellitus with unspecified complications[ICD10: E10.8] Diagnosis: Mixed hyperlipidemia[ICD10: E78.2] Diagnosis: Essential (primary) hypertension[ICD10: I10] Diagnosis: Other fatigue[ICD10: R53.83] Najma OG [employer] CPT-4: 85820 03/05/2017 ([id number]) OFFICE/OUTPATIENT VISIT EST Diagnosis: Type 2 diabetes mellitus without complications[ICD10: E11.9] Diagnosis: Mixed hyperlipidemia[ICD10: E78.2] Diagnosis: Essential (primary) hypertension[ICD10: I10] Diagnosis: Nicotine dependence, unspecified, uncomplicated[ICD10: F17.200] Najma OG [facility] CPT-4: 41975 07/09/2016 ([id number]) OFFICE/OUTPATIENT VISIT EST Diagnosis: Type 1 diabetes mellitus with unspecified complications[ICD10: E10.8] Diagnosis: Mixed hyperlipidemia[ICD10: E78.2] Diagnosis: Essential (primary) hypertension[ICD10: I10] Najma OG [employer] CPT-4: 11604 06/16/2016 ([id number]) OFFICE/OUTPATIENT VISIT EST Diagnosis: Type 2 diabetes mellitus without complications[ICD10: E11.9] Diagnosis: Mixed hyperlipidemia[ICD10: E78.2] Diagnosis: Essential (primary) hypertension[ICD10: I10] Najma OG [employer] CPT-4: 74037 03/10/2016 ([id number]) OFFICE/OUTPATIENT VISIT EST Diagnosis: Type 1 diabetes mellitus with unspecified complications[ICD10: E10.8] Diagnosis: Mixed hyperlipidemia[ICD10: E78.2] Diagnosis: Essential (primary) hypertension[ICD10: I10] Najma OG [employer] [facility] CPT-4: 83104 03/06/2016 ([id number]) OFFICE/OUTPATIENT VISIT EST Diagnosis: Bitten or stung by nonvenomous insect and other nonvenomous arthropods, subsequent encounter[ICD10: W57.XXXD] Diagnosis: Insect bite (nonvenomous), right thigh, subsequent encounter[ICD10: S70.361D] Barbara Brower NAJMA Matilda LONG [employer] [facility] CPT-4: 52534 11/2015 ([id number]) OFFICE/OUTPATIENT VISIT EST Diagnosis: Bitten or stung by nonvenomous insect and other nonvenomous arthropods, initial encounter[ICD10: W57.XXXA] Diagnosis: Insect bite (nonvenomous), right thigh, initial encounter[ICD10: S70.361A] Barbara Brower NAJMA AmeenaMatilde MERCEDES [employer] [facility] CPT-4: 88511 09/2015 ([id number]) OFFICE/OUTPATIENT VISIT EST Diagnosis: Mixed hyperlipidemia[ICD10: E78.2] Diagnosis: Essential (primary) hypertension[ICD10: I10] Diagnosis: Type 2 diabetes mellitus without complications[ICD10: E11.9] Diagnosis: Encounter for immunization[ICD10: Z23] Diagnosis: Encounter for screening for malignant neoplasm of colon[ICD10: Z12.11] Diagnosis: Abnormal weight gain[ICD10: R63.5] Barbara Brower ANUM GODINEZ Matilda LONG [employer] [facility] CPT-4: 70890 09/06/2015 ([id number]) OFFICE/OUTPATIENT VISIT EST Diagnosis: Type 2 diabetes mellitus without complications[ICD10: E11.9] Diagnosis: Mixed hyperlipidemia[ICD10: E78.2] Diagnosis: Essential (primary) hypertension[ICD10: I10] Diagnosis: Encounter for screening for malignant neoplasm of prostate[ICD10: Z12.5] Diagnosis: Other fatigue[ICD10: R53.83] Najma MCARTHUR AmeenaMatilde MERCEDES [employer] [facility] CPT-4: 29255 08/31/2015 OFFICE/OUTPATIENT VISIT EST Diagnosis: Diarrhea, unspecified[ICD10: R19.7] Henrietta MCCOY [employer] [facility] CPT-4: 67691 06/29/2015 OFFICE/OUTPATIENT VISIT EST Diagnosis: PNEUMOCOCCAL VACCINE[ICD10: Z23] Diagnosis: FLU VACCINE[ICD10: Z23] Diagnosis: Essential (primary) hypertension[ICD10: I10] Diagnosis: Mixed hyperlipidemia[ICD10: E78.2] Diagnosis: Type 1 diabetes mellitus with unspecified complications[ICD10: E10.8] Diagnosis: Actinic keratosis[ICD10: L57.0] Najma MANUELLINE Matilda OG [employer] [facility] CPT-4: 20205 01/17/2015 ([id number]) OFFICE/OUTPATIENT VISIT EST Diagnosis: Type 2 diabetes mellitus without complications[ICD10: E11.9] Diagnosis: Impaired fasting glucose[ICD10: R73.01] Diagnosis: Mixed hyperlipidemia[ICD10: E78.2] Diagnosis: Essential (primary) hypertension[ICD10: I10] Najma Heverlane NAJMA Matilda OG [facility] CPT-4: 38058 01/12/2015 ([id number]) OFFICE/OUTPATIENT VISIT EST Diagnosis: - I - HYPERLIPIDEMIA NEC/NOS[ICD9: 272.4] Diagnosis: HYPERTENSION[ICD9: 401.9] Diagnosis: DM W/O COMPLICATION TYPE II[ICD9: 250.00] Diagnosis: ACTINIC KERATOSIS[ICD9: 702.0] Najma Heverlane MCARTHUR Ameena Clayton [employer] [facility] CPT-4: 90251 09/19/2014 ([id number]) OFFICE/OUTPATIENT VISIT EST Diagnosis: HYPERLIPIDEMIA NEC/NOS[ICD9: 272.4] Diagnosis: HYPERTENSION[ICD9: 401.9] Diagnosis: IMPAIRED FASTING GLUCOSE[ICD9: 790.21] Diagnosis: MALAISE AND FATIGUE[ICD9: 780.79] Najma Jenkins Matilda [employer] CPT-4: 28281 08/15/2014 ([id number]) OFFICE/OUTPATIENT VISIT EST Diagnosis: HYPERLIPIDEMIA NEC/NOS[ICD9: 272.4] Diagnosis: HYPERTENSION[ICD9: 401.9] Diagnosis: IMPAIRED FASTING GLUCOSE[ICD9: 790.21] Najma CHAPMAN Matilda [employer] CPT-4: 29407 12/14/2013 ([id number]) OFFICE/OUTPATIENT VISIT EST Diagnosis: Post herpetic neuralgia[ICD9: 053.19] Najma Kathleenpepperbijan OG [employer] [facility] CPT-4: 32133 10/17/2013 OFFICE/OUTPATIENT VISIT EST Diagnosis: Shingles[ICD9: 053.9] Diagnosis: Post herpetic neuralgia[ICD9: 053.19] [facility]: 45460 09/23/2013 ([id number]) OFFICE/OUTPATIENT VISIT EST Diagnosis: HYPERTENSION[ICD9: 401.9] Diagnosis: HYPERLIPIDEMIA NEC/NOS[ICD9: 272.4] Diagnosis: IMPAIRED FASTING GLUCOSE[ICD9: 790.21] [facility]pperbijan [facility]PT[facility]: 84937 06/20/2013 ([id number]) OFFICE/OUTPATIENT VISIT EST Diagnosis: HYPERLIPIDEMIA NEC/NOS[ICD9: 272.4] Diagnosis: MALAISE AND FATIGUE[ICD9: 780.79] Diagnosis: ROUTINE MEDICAL EXAM[ICD9: V70.0] Diagnosis: HYPERTENSION[ICD9: 401.9] Diagnosis: IMPAIRED FASTING GLUCOSE[ICD9: 790.21] Najma Heverpepperbijan ABBOTTQ ADELA LONG [employer] [facility] CPT-4: 10937 06/08/2013 ([id number]) OFFICE/OUTPATIENT VISIT EST Diagnosis: HYPERLIPIDEMIA NEC/NOS[ICD9: 272.4] Diagnosis: HYPERTENSION[ICD9: 401.9] Diagnosis: IMPAIRED FASTING GLUCOSE[ICD9: 790.21] Diagnosis: DIARRHEA[ICD9: 787.91] Najma MCARTHUR AmeenaMatilde BRITTNI Stallings [employer] [facility] CPT-4: 66908 11/25/2012 ([id number]) OFFICE/OUTPATIENT VISIT EST Diagnosis: HYPERLIPIDEMIA NEC/NOS[ICD9: 272.4] Diagnosis: HYPERTENSION[ICD9: 401.9] Diagnosis: IMPAIRED FASTING GLUCOSE[ICD9: 790.21] Diagnosis: MALAISE AND FATIGUE[ICD9: 780.79] Najma Jenkins Matilda LONG [employer] [facility] CPT-4: 51407 11/11/2012 OFFICE/OUTPATIENT VISIT EST Diagnosis: Fungal dermatitis[ICD9: 111.9] Diagnosis: Dry skin dermatitis[ICD9: 692.89] Henrietta Sow-Fernandez FILI OG DO [facility] CPT-4: 90733 08/27/2012 ([id number]) OFFICE/OUTPATIENT VISIT EST Diagnosis: HYPERTENSION[ICD9: 401.9] Diagnosis: HYPERLIPIDEMIA NEC/NOS[ICD9: 272.4] Najma OG DO [facility] CPT-4: 94866 05/11/2012 ([id number]) OFFICE/OUTPATIENT VISIT EST Diagnosis: HYPERLIPIDEMIA NEC/NOS[ICD9: 272.4] Diagnosis: HYPERTENSION[ICD9: 401.9] Diagnosis: ROUTINE MEDICAL EXAM[ICD9: V70.0] Najma OG DO [facility] CPT-4: 02523 05/04/2012 ([id number]) OFFICE/OUTPATIENT VISIT EST Diagnosis: HYPERTENSION[ICD9: 401.9] Diagnosis: HYPERLIPIDEMIA NEC/NOS[ICD9: 272.4] Diagnosis: IMPAIRED FASTING GLUCOSE[ICD9: 790.21] Najma OG DO [facility] CPT-4: 46319 12/11/2011 ([id number]) OFFICE/OUTPATIENT VISIT EST Diagnosis: HYPERLIPIDEMIA NEC/NOS[ICD9: 272.4] Diagnosis: HYPERTENSION[ICD9: 401.9] Diagnosis: IMPAIRED FASTING GLUCOSE[ICD9: 790.21] Najma OG DO [facility] CPT-4: 29137 10/29/2011 ([id number]) OFFICE/OUTPATIENT VISIT EST Diagnosis: HYPERTENSION[ICD9: 401.9] Najma PAYAN DO [facility] CPT-4: 85537 08/14/2011 ([id number]) OFFICE/OUTPATIENT VISIT EST Diagnosis: HYPERTENSION[ICD9: 401.9] Diagnosis: IMPAIRED FASTING GLUCOSE[ICD9: 790.21] Najma KATHLEENNDBIJAN WADE [facility] CPT-4: 12765 07/29/2011 ([id number]) OFFICE/OUTPATIENT VISIT EST Diagnosis: HYPERTENSION[ICD9: 401.9] Najma ZARATER [facility] CPT-4: 28533 07/23/2011 ([id number]) OFFICE/OUTPATIENT VISIT EST Diagnosis: HYPERTENSION[ICD9: 401.9] Najma KATHLEEN NDER DO [facility] CPT-4: 81493 06/24/2011 OFFICE/OUTPATIENT VISIT EST Diagnosis: HYPERTENSION[ICD9: 401.9] Najma KATHLEEN NDER DO [employer] CPT-4: 88526 05/20/2011 OFFICE/OUTPATIENT VISIT EST Diagnosis: HYPERTENSION[ICD9: 401.9] Najma KATHLEEN NDER DO [employer] CPT-4: 71835 04/15/2011 OFFICE/OUTPATIENT VISIT EST Diagnosis: HYPERLIPIDEMIA NEC/NOS[ICD9: 272.4] Diagnosis: IMPAIRED FASTING GLUCOSE[ICD9: 790.21] Najma KATHLEENNDER [employer] CPT-4: 41762 03/18/2011 ([id number]) OFFICE/OUTPATIENT VISIT EST Najma LONGER [employer] CPT-4: 89698 07/30/2010 ([id number]) PREV VISIT, EST, AGE 40-64 Najma OG DO [employer] CPT-4: 53452 04/24/2010 Plan of Care Planned Activity Notes [...] : E78.2 01/31/2019 Appointment: Najma Og WPtel: [address] [place], [place] [phone] US FOLLOW UP 01/31/2019 Appointment: [facility] [phone] [facility] [facility] 01/26/2019 Appointment: Najma Og WPtel: [address] [place], [place] [phone] US LAB 09/30/2018 Visit Diagnosis Plan: Unspecified [...] : E11.9 08/19/2018 Appointment: Najma Og WPtel: [address] [place] [address] US FOLLOW UP 08/19/2018 Appointment: Najma Og WPtel: [address] [place] [address] US LAB 08/16/2018 Visit Diagnosis Plan: Essential [...] : E78.2 05/10/2018 Appointment: Najma Og WPtel: [address] [place], [place] [phone] US FOLLOW UP 05/10/2018 Patient Education: Low Back Pain Exercises: Illustration Completed 05/10/2018 Patient Education: Low Back Pain Exercises Completed 05/10/2018 Appointment: Najma Og WPtel: [address] [place], [place] [phone] [place] LAB 05/05/2018 Visit Diagnosis Plan: Type [...] : E78.2 01/19/2018 Appointment: Najma Og WPtel: [address] [place] [address] FOLLOW UP 01/19/2018 Patient Education: Patient Medication Summary Completed 01/19/2018 Appointment: Najma Og WPtel: [address] [place], [place] [phone] [place] LAB 01/13/2018 Patient Education: Patient Medication [...] : I10 10/15/2017 Appointment: Najma Og WPtel: [address] [place], [place] [phone] US FOLLOW UP 10/15/2017 Patient Education: Patient Medication Summary Completed 10/15/2017 Appointment: Najma Og WPtel: [address] [place], [place] [phone] [place] LAB 10/06/2017 Patient Education: Patient Medication Summary Completed 10/06/2017 Visit Diagnosis Plan: Actinic keratosis Discussion: Cr yotherapy as above ICD-9 : 702.0 ICD-10 : L57.0 04/23/2017 Appointment: Najma Og WPtel: [address] [place], [place] [phone] OFFICE SURGERY 04/23/2017 Patient Education: Patient Medication [...] : E78.2 03/11/2017 Appointment: Najma Og WPtel: [address] [place], [place] [phone] US FOLLOW UP 03/11/2017 Patient Education: Patient Medication Summary Completed 03/11/2017 Appointment: Najma Og WPtel: [address] [place], [place] [phone] [place] LAB 03/05/2017 Patient Education: Patient Medication [...] : F17.200 07/09/2016 Appointment: Najma Og WPtel: [address] [place], [place] [phone] US 07/08 lm ~sl 4/ confirmed~sl FOLLOW UP 08/2016 Patient Education: Patient Medication Summary Completed 07/09/2016 Appointment: Najma Og WPtel: [address] [place], [place] [phone] US LAB 06/16/2016 Patient Education: Patient Medication Summary Completed 06/16/2016 Visit Plan: Lab discussed Accuchecks maribel ly Lifestyle change for 3mos then check CMP, HbA1C in 3mos Has had flu and pneumonia shot 03/10/2016 Appointment: Najma Og WPtel: [address] [place], [place] [phone] 03/06 confirmed `sl FOLLOW UP 03/10/2016 Patient Education: Patient Medication Summary Completed 03/10/2016 Appointment: Najma Og WPtel: [address] [place], [place] [phone] LAB 03/06/2016 Patient Education: Patient Medication Summary Completed 03/06/2016 Referral: Donavon Keller WPtel: [address] [place] [address] [facility] [id number] Referral Completed 10/22/2015 Visit Plan: Tick bite area looks much be tter Continue current rxs and close monitoring Follow up if any new symptoms or worsening appearance 09/12/2015 Appointment: Barbara Brower [address] [place], [place] [phone] 09/10 confirmed~sl FOLLOW UP 09/12/2015 Patient Education: Patient Medication Summary Completed 09/12/2015 Visit Plan: Cover as above 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 topical steroids to calm down the inflammation(suspect most of redness is due to histamine response vs infection) Monitor closely Follow up in 2 days to recheck 09/10/2015 Appointment: Barbara Brower [address] [place] [address] ACUTE ILLNESS 09/10/2015 Patient Education: Patient Medication [...] shingles vaccine 09/06/2015 Appointment: Barbara Brower [address] [facility] FOLLOW UP 09/06/2015 Patient Education: Patient Medication Summary Completed 09/06/2015 Care Plan: Referral Order SNOMED-CT : [id number] Pending 09/06/2015 Appointment: Najma Og WPtel: [address] [place], [place] [phone] [place] LAB 08/31/2015 Patient Education: Patient Medication [...] to UC/ER. 06/29/2015 Appointment: Henrietta Lubin WPtel: [address] [place], [place] [phone] ACUTE ILLNESS 06/29/2015 Patient Education: Patient Medication Summary Completed 06/29/2015 Visit Plan: Lab discussed Will keep meds the same Discussed diet/exercise at length Cryotherapy as above to AKs of arms Flu and Prevnar 13 given Trial of revatio per patient request for ED--warned of no nitrates Recheck 4mos 01/17/2015 Appointment: Najma Og WPtel: [address] [place], [place] [phone] [place] 01/16 confirmed~sl FOLLOW UP 01/17/2015 Patient Education: Patient Medication Summary Completed 01/17/2015 Appointment: Najma Og WPtel: [address] [place], [place] [phone] US LAB 01/12/2015 Patient Education: Patient Medication Summary Completed 01/12/2015 Visit Plan: Lab discussed Start accuchec ks daily Cryotherapy as above 09/19/2014 Appointment: Najma Og WPtel: [address] 09/18 confirmed -mf FOLLOW UP 09/19/2014 Patient Education: Patient Medication Summary Completed 09/19/2014 Appointment: Najma Og WPtel: [address] [place], [place] [phone] [place] LAB 08/15/2014 Patient Education: Patient Medication Summary Completed 08/15/2014 Appointment: Najma Og WPtel: [address] [place] [address] ACUTE ILLNESS 12/14/2013 Patient Education: Patient Medication Summary Completed 12/14/2013 Visit Plan: Patient using tylenol prn pa in Discussed possible shingles shot for booster in 9-12mos 10/17/2013 Appointment: Najma Og WPtel: [address] [place] [address] FOLLOW UP 10/17/2013 Patient Education: Patient Medication Summary Completed 10/17/2013 Appointment: Jeanie Briceño WPtel: [address] [place] [address] ACUTE ILLNESS 09/23/2013 Patient Education: Patient Medication Summary Completed 09/23/2013 Appointment: Najma Og WPtel: [address] [place] [address] BP CHECK 07/22/2013 Patient Education: Patient Medication Summary Completed 07/22/2013 Visit Plan: Lab discussed Discussed swit arun amlodopine to beta slim to see if helps with tremor BP check in 1mo 06/20/2013 Appointment: Najma Og WPtel: [address] [place] [address] 06/17 no answer FOLLOW UP 06/20/2013 Patient Education: Patient Medication Summary Completed 06/20/2013 Appointment: Najma Og WPtel: [address] [place], [place] [phone] [place] LAB 06/08/2013 Patient Education: Patient Medication Summary Completed 06/08/2013 Visit Plan: BRAT diet and yogurt and gat orade Lab discussed Continue current meds Spot checks on BS 11/25/2012 Appointment: Najma Og WPtel: [address] [place], [place] [phone] 11/24 FOLLOW UP 11/25/2012 Patient Education: Patient Medication Summary Completed 11/25/2012 Appointment: Najma Og WPtel: [address] [place], [place] [phone] LAB 11/11/2012 Patient Education: Patient Medication Summary Completed 11/11/2012 Appointment: Henrietta Lubin WPtel: [address] [place], [place] [phone] WORK IN 08/27/2012 Patient Education: Patient Medication Summary Completed 08/27/2012 Visit Plan: Pt going to get new home BP moniter Continue crestor and restart fish oil and will check fasting lab in 6mos Lab results discussed 05/11/2012 Appointment: Najma Og WPtel: [address] [place], [place] [phone] 05/10 FOLLOW UP 05/11/2012 Patient Education: Patient Medication Summary Completed 05/11/2012 Appointment: Najma Og WPtel: [address] [place], [place] [phone] LAB 05/04/2012 Patient Education: Patient Medication Summary Completed 05/04/2012 Visit Plan: 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 and forehead 03/02/2012 Appointment: Najma Og WPtel: [address] [place], [place] [phone] 03/01 OFFICE SURGERY 03/02/2012 Patient Education: Patient Medication Summary Completed 03/02/2012 Visit Plan: Labs discussed--recheck lab end of Nov/ of Mar Continue current meds and continue to moniter BS daily and BP 1-2 times a week Plan on cryotherapy this fall so can wear longsleeves after procedure See urology 12/11/2011 Appointment: Najma Og WPtel: [address] [place], [place] [phone] [place] FOLLOW UP 12/11/2011 Patient Education: Patient Medication Summary Completed 12/11/2011 Appointment: Najma Og WPtel: [address] [place], [place] [phone] LAB 10/29/2011 Patient Education: Patient Medication Summary Completed 10/29/2011 Appointment: Najma Og WPtel: [address] [place], [place] [id number] BP CHECK 08/14/2011 Patient Education: Patient Medication Summary Completed 08/14/2011 Appointment: Najma Og WPtel: [address] [place] [address] ACUTE ILLNESS 07/29/2011 Patient Education: Patient Medication Summary Completed 07/29/2011 Appointment: Najma Og WPtel: [address] [place] [address] BP CHECK 07/23/2011 Patient Education: Patient Medication Summary Completed 07/23/2011 Appointment: Najma Og WPtel: [address] [place] [address] BP CHECK 06/24/2011 Patient Education: Patient Medication Summary Completed 06/24/2011 Appointment: Najma Og WPtel: [address] [place] [address] BP CHECK 05/20/2011 Patient Education: Patient Medication Summary Completed 05/20/2011 Appointment: Najma Og WPtel: [address] [place] [address] [place] BP CHECK 04/29/2011 Patient Education: Patient Medication Summary Completed 04/29/2011 Appointment: Najma Og WPtel: [address] [place] [address] BP CHECK 04/15/2011 Patient Education: Patient Medication Summary Completed 04/15/2011 Visit Plan: Continue current meds Add fi sh oil 1gm daily Glucometer given to use for accuchecks prn 03/18/2011 Appointment: Najma Ogtel: [address] [place], [place] [phone] FOLLOW UP 03/18/2011 Patient Education: Patient Medication Summary Completed 03/18/2011 Appointment: Najma Og WPtel: [address] [place], [place] [phone] [place] LAB 03/14/2011 Patient Education: Patient Medication Summary Completed 03/14/2011 Appointment: Najma Og WPtel: [address] [place], [place] [id number] [place] LAB 11/11/2010 Appointment: Najma Og WPtel: [address] [place], [place] [phone] [place] UA 11/11/2010 Patient Education: Patient Medication Summary Completed 11/11/2010 Appointment: Najma Og WPtel: [address] [place], [place] [phone] [place] LAB 10/29/2010 Patient Education: Patient Medication Summary Completed 10/29/2010 Appointment: Najma Og WPtel: [address] [place], [place] [phone] [place] FOLLOW UP 07/30/2010 Patient Education: Patient Medication Summary Completed 07/30/2010 Appointment: Najma Og WPtel: [address] [place], [place] [phone] [place] LAB 07/23/2010 Patient Education: Patient Medication Summary Completed 07/23/2010 Appointment: Najma Ogtel: [address] [place], [place] [phone] [place] LAB 04/26/2010 Patient Education: Patient Medication Summary Completed 04/26/2010 Visit Plan: Add PSA to lab Restart Crest or at 10mg daily Trial of Wellbutrin to aid in smoking cessation Check Lipids and LFTs in 3mos 04/24/2010 [facility]ment: [facility]el[facility] [phone] [facility] [id number] FOLLOW UP 04/24/2010 Patient Education: Patient Medication Summary Completed 04/24/2010 Appointment: [facility]aj[facility] Og WPtel: [address] [facility] [id number] [facility] LAB 04/19/2010 Patient Education: Patient Medication Summary Completed 04/19/2010 Referral: Donavon Keller WPtel: [facility] [place] [id number] [place] Referral Completed Instructions Comment . Lab [...] conservative + labs. CBC & CMP at [facility] Discussed needed oral hydration (preferably [...]
[2019-10-14 22:53] LABS: BILIRUBIN,URINE NEGATIVE (NEGATIVE); CLARITY,URINE CLEAR; COLOR,URINE YELLOW; GLUCOSE, URINE (UA) NEGATIVE (NEGATIVE); KETONES,URINE NEGATIVE (NEGATIVE); LEUKOCYTE ESTERASE ,URINE NEGATIVE (NEGATIVE); NITRITE,URINE NEGATIVE (NEGATIVE); PH,URINE 5.5 (5-9); PROTEIN,URINE NEGATIVE (NEGATIVE)
--- OUTSIDE RECORDS SUMMARY | 2019-10-14 22:53 | XMS REPORT | CCD ---
Author Author Inocente Og D.O. Organization [facility] Address [address] [place] [address] Phone Care Team Providers Care Manager Library Name Role Phone Najma Og D.O. PP Unavailable CCM Unavailable Summary Purpose Interface Exchange Insurance Providers Payer name Policy type / Coverage type Covered republican ID Effective Begin Date Effective End Date [employer] MEDICARE Medicare Part B [id number] Unknown [facility] Medicare Part B [id number] Un known Family history Father Diagnosis Age At Onset Diabetes mellitus Type 2 Unknown Myocardial infarction Unknown Brother Diagnosis Age At Onset Diabetes mellitus Type 2 Unknown Mother Diagnosis Age At Onset Osteoarthritis Unknown Cerebrovascular disease Unknown Social History Social History Element Codes Description Effective Dates Tobacco history SNOMED CT: 025592166 Never smoker 12/21/2014 Marital status Unknown 07/30/2010 [...] Instructions fenofibrate micronized 134 mg capsule RxNorm: 688022 1 Capsule(s) Oral QD for triglycerides 04/14/2019 07/13/2019 Active amlodipine 5 mg tablet RxNorm: 692003 TAKE 1 TABLET BY MOUTH ON CE DAILY 03/22/2019 06/19/2019 Active metformin ER 500 mg tablet,extended release 24 hr RxNorm: 86 0975 TAKE 1 TABLET BY MOUTH ONCE DAILY 03/15/2019 No Stop Date Active propranolol ER 80 mg capsule,24 hr,extended release RxNorm: 331948 TAKE 1 CAPSULE BY MOUTH ONCE DAILY 03/15/2019 No Stop Date Active amlodipine 5 mg tablet RxNorm: 557426 1 Tablet(s) PO QD 12/27/2018 Inactive fenofibrate micronized 134 mg capsule RxNorm: 668815 TA KE 1 CAPSULE BY MOUTH ONCE DAILY FOR TRIGLYCERIDES 10/11/2018 04/13/2019 Inactive amlodipine 5 mg tablet RxNorm: 685085 1 Tablet(s) PO QD 09/30/2018 Inactive metformin ER 500 mg tablet,extended release 24 hr RxNorm: 86 0975 TAKE 1 TABLET BY MOUTH ONCE DAILY 09/21/2018 03/14/2019 Inactive propranolol ER 80 mg capsule,24 hr,extended release RxNorm: 817079 TAKE 1 CAPSULE BY MOUTH ONCE DAILY 09/21/2018 03/14/2019 Inactive amlodipine 5 mg tablet RxNorm: 440959 1 Tablet(s) PO QD 08/25/2018 Inactive amlodipine 5 mg tablet RxNorm: 439342 1 Tablet(s) PO QD 08/25/2018 Inactive lisinopril 40 mg tablet RxNorm: 693177 TAKE 1 TABLET BY MOUTH O NCE DAILY 07/21/2018 08/24/2018 Inactive fenofibrate micronized 134 mg capsule RxNorm: 210571 TA KE 1 CAPSULE BY MOUTH ONCE DAILY FOR TRIGLYCERIDES 07/12/2018 10/10/2018 Inactive propranolol ER 80 mg capsule,24 hr,extended release RxNorm: 181185 TAKE 1 CAPSULE BY MOUTH ONCE DAILY 06/21/2018 09/20/2018 Inactive lisinopril 40 mg tablet RxNorm: 436085 TAKE 1 TABLET BY MOUTH O NCE DAILY 04/26/2018 07/20/2018 Inactive metformin ER 500 mg tablet,extended release 24 hr RxNorm: 672528 1 Tablet(s) QD 03/31/2018 09/20/2018 Inactive lisinopril 40 mg tablet RxNorm: 029323 TAKE 1 TABLET BY MOUTH O NCE DAILY 01/28/2018 04/25/2018 Inactive Vitamin D3 5,000 unit tablet RxNorm: 932864 1 Tablet(s) PO QD 01/1908/18/2018 Inactive fenofibrate micronized 134 mg capsule RxNorm: 536442 1 Capsule(s) PO QD for triglycerides 01/19/2018 07/11/2018 Inactive metformin ER 500 mg tablet,extended release 24 hr RxNorm: 126486 1 Tablet(s) QD 12/31/2017 03/30/2018 Inactive metformin ER 500 mg tablet,extended release 24 hr RxNorm: 930861 Tablet(s) 12/30/2017 12/30/2017 Inactive propranolol ER 80 mg capsule,24 hr,extended release RxNorm: 924795 1 Capsule(s) PO QD 12/17/2017 06/14/2018 Inactive metformin ER 500 mg tablet,extended release 24 hr RxNorm: 86 0975 1 Tablet(s) PO QD DUE FOR LABS AND APPT 12/02/2017 12/30/2017 Inactive Crestor 10 mg tablet RxNorm: 257818 TAKE ONE TABLET BY MOUTH ON CE DAILY 11/01/2017 01/18/2018 Inactive lisinopril 40 mg tablet RxNorm: 521902 TAKE ONE TABLET BY MOUTH ONCE DAILY [...] ER 80 mg capsule,24 hr,extended release RxNorm: 833457 1 Capsule(s) PO QD DUE FOR APPT 09/08/2017 12/17/2017 Inactive Crestor 10 mg tablet RxNorm: 895908 1 Tablet(s) PO QD T CHELSI ONE TABLET BY MOUTH DAILY 03/11/2017 09/06/2017 Inactive propranolol ER 80 mg capsule,24 hr,extended release RxNorm: 515744 1 Capsule(s) PO QD TAKE ONE CAPSULE BY MOUTH DAILY - REPLACES AMLODOPINE 03/11/2017 09/08/2017 Inactive metformin ER 500 mg tablet,extended release 24 hr RxNorm: 86 0975 1 Tablet(s) PO QD 03/11/2017 09/08/2017 Inactive lisinopril 40 mg tablet RxNorm: 242586 1 Tablet(s) PO QD 03/11/2017 0 09/06/2017 Inactive lisinopril 40 mg tablet RxNorm: 759514 1 Tablet(s) PO QD 02/16/2017 1 05/11/2016 Inactive metformin ER 500 mg tablet,extended release 24 hr RxNorm: 86 0975 1 Tablet(s) PO QD Due for labs and follow up before further refills 02/16/2017 017 Inactive propranolol ER 80 mg capsule,24 hr,extended release RxNorm: 980010 Capsule(s) TAKE ONE CAPSULE BY MOUTH DAILY - REPLACES AMLODOPINE 11/19/20162016 Inactive lisinopril 40 mg tablet RxNorm: 550209 1 Tablet(s) PO QD 11/17/2016 1 04/18/2016 Inactive metformin ER 500 mg tablet,extended release 24 hr RxNorm: 86 0975 1 Tablet(s) PO QD 11/17/2016 02/16/2017 Inactive lisinopril 40 mg tablet RxNorm: 754936 1 Tablet(s) PO Q D TAKE ONE TABLET BY MOUTH DAILY 08/19/2016 11/17/2016 Inactive metformin ER 500 mg tablet,extended release 24 hr RxNorm: 86 0975 Tablet(s) TAKE ONE TABLET BY MOUTH DAILY 08/19/2016 11/16/2016 Inactive propranolol ER 80 mg capsule,24 hr,extended release RxNorm: 916509 Capsule(s) TAKE ONE CAPSULE BY MOUTH DAILY - REPLACES AMLODOPINE 08/19/20162016 Inactive Crestor 10 mg tablet RxNorm: 274368 TAKE ONE TABLET BY MOUTH DAILY 06/16/2016 03/10/2017 Inactive lisinopril 40 mg tablet RxNorm: 263964 1 Tablet(s) PO Q D TAKE ONE TABLET BY MOUTH DAILY 05/23/2016 08/18/2016 Inactive metformin ER 500 mg tablet,extended release 24 hr RxNorm: 86 0975 TAKE ONE TABLET BY MOUTH DAILY 05/23/2016 08/19/2016 Inactive propranolol ER 80 mg capsule,24 hr,extended release RxNorm: 130865 TAKE ONE CAPSULE BY MOUTH DAILY - REPLACES AMLODOPINE 05/23/2016 08/19/2016 [place] [facility] Crestor 10 mg tablet RxNorm: 889662 TAKE ONE TABLET BY MOUTH DAILY 03/31/2016 06/15/2016 Inactive metformin ER 500 mg tablet,extended release 24 hr RxNorm: 86 0975 TAKE ONE TABLET BY MOUTH DAILY 02/19/2016 05/22/2016 Inactive propranolol ER 80 mg capsule,24 hr,extended release RxNorm: 520039 TAKE ONE CAPSULE BY MOUTH DAILY - REPLACES AMLODOPINE 11/23/2015 05/20/2016 [place] [facility] metformin ER 500 mg tablet,extended release 24 hr RxNorm: 86 0975 TAKE ONE TABLET BY MOUTH DAILY 11/08/2015 02/05/2016 Inactive Bactroban Nasal 2 % ointment RxNorm: 507920 Apply topic ally to affected area twice daily 09/10/2015 03/09/2016 Inactive Vibramycin 100 mg capsule RxNorm: 485789 1 Capsule(s) PO BID 201509/23/2015 Inactive lisinopril 40 mg tablet RxNorm: 308012 1 Tablet(s) PO Q D TAKE ONE TABLET BY MOUTH DAILY 08/27/2015 02/22/2016 Inactive metformin ER 500 mg tablet,extended release 24 hr RxNorm: 86 0975 TAKE ONE TABLET BY MOUTH DAILY 08/06/2015 11/03/2015 Inactive Levsin/SL 0.125 mg sublingual tablet RxNorm: 7142124 1 T ablet(s) SL Q4H as needed for stomach cramps 06/29/2015 07/03/2015 Inactive lisinopril 40 mg tablet RxNorm: 591625 Tablet(s) TAKE ONE TABLE T BY MOUTH DAILY 06/07/2015 08/26/2015 Inactive propranolol ER 80 mg capsule,24 hr,extended release RxNorm: 242133 TAKE ONE CAPSULE BY MOUTH DAILY - REPLACES AMLODOPINE 05/30/2015 11/22/2015 [place] [facility] metformin ER 500 mg tablet,extended release 24 hr RxNorm: 86 0975 1 Tablet(s) PO QD 05/10/2015 08/05/2015 Inactive Crestor 10 mg tablet RxNorm: 313813 TAKE ONE TABLET BY MOUTH DAILY 04/18/2015 10/14/2015 Inactive metformin ER 500 mg tablet,extended release 24 hr RxNorm: 86 0975 TAKE ONE TABLET BY MOUTH DAILY 02/07/2015 05/10/2015 Inactive sildenafil 20 mg tablet RxNorm: 425971 1 Tablet(s) PO QD 01/17/2015 1 04/17/2014 Inactive propranolol ER 80 mg capsule,24 hr,extended release RxNorm: 737233 1 Capsule(s) PO QD replaces amlodopine 11/28/2014 05/26/2015 Inactive [SALINASIN GS FOR UNINSURED PATIENTS -- BIN:813432, PCN: [id number], Group: [id number], ID# [id number], Process claim through [employer], for questions: . THIS IS NOT INSURANCE.] lisinopril 40 mg tablet RxNorm: 847114 TAKE ONE TABLET BY MOUTH DAILY 11/16/2014 06/07/2015 Inactive lisinopril 40 mg tablet RxNorm: 825648 1 Tablet(s) PO QD 08/21/2014 0 11/15/2014 Inactive [AttnRPh: Saving apply/adjudicate RxGRP: [id number] RxBIN:[id number] RxPCN: ID#:[id number]] lisinopril 40 mg tablet RxNorm: 394229 1 Tablet(s) PO Q D NEEDS SEEN FOR APPOINTMENT 07/14/2014 08/21/2014 Inactive [AttnRPh: Saving apply/adjudicate RxGRP:SG20 RxBIN:[id number] RxPCN: ID#:[id number]] Crestor 10 mg tablet RxNorm: 382329 TAKE ONE TABLET BY MOUTH 07/06/2014 01/01/2015 Inactive metformin ER 500 mg tablet,extended release 24 hr RxNorm: 86 0975 1 Tablet(s) QD TAKE ONE TABLET BY MOUTH ONCE A DAY 06/09/2014 12/05/2014 Inactive propranolol ER 80 mg capsule,24 hr,extended release RxNorm: 543445 1 Capsule(s) PO QD replaces amlodopine 06/05/2014 11/28/2014 Inactive [Astro ApeIN GS FOR UNINSURED PATIENTS -- BIN:[id number], PCN: [id number], Group: [id number], ID# [id number], Process claim through [employer], for questions: . THIS IS NOT INSURANCE.] propranolol ER 80 mg capsule,24 hr,extended release RxNorm: 507640 1 Capsule(s) PO QD replaces amlodopine 03/07/2014 06/05/2014 Inactive [SAVIN GS FOR UNINSURED PATIENTS -- BIN:668051, PCN: [id number], Group: [id number], ID# [id number], Process claim through [employer], for questions: . THIS IS NOT INSURANCE.] metformin ER 500 mg tablet,extended release 24 hr RxNorm: 86 0975 TAKE ONE TABLET BY MOUTH ONCE A DAY 12/15/2013 06/09/2014 Inactive propranolol ER 80 mg capsule,24 hr,extended release RxNorm: 544724 1 Capsule(s) PO QD replaces amlodopine 12/09/2013 03/07/2014 Inactive [NICOLAS FOR UNINSURED PATIENTS -- BIN:177583, PCN: [id number], Group: [id number], ID# [id number], Process claim through [employer], for questions: . THIS IS NOT INSURANCE.] acyclovir 800 mg tablet RxNorm: 597961 1 Tablet(s) PO QID 09/23/2013 09/29/2013 Inactive gabapentin 300 mg capsule RxNorm: 506797 1 Capsule(s) PO BID 201310/07/2013 Inactive metformin ER 500 mg tablet,extended release 24 hr RxNorm: 86 0975 1 Tablet(s) PO QD 09/19/2013 12/14/2013 Inactive propranolol ER 80 mg capsule,24 hr,extended release RxNorm: 429339 1 Capsule(s) PO QD replaces amlodopine 09/15/2013 12/09/2013 Inactive metformin ER 500 mg 24 hr tablet,extended release RxNorm: 86 0975 1 Tablet(s) PO QD 09/15/2013 09/18/2013 Inactive lisinopril 40 mg tablet RxNorm: 584775 1 Tablet(s) PO QD 07/19/2013 0 07/14/2014 Inactive Crestor 10 mg tablet RxNorm: 738155 Tablet(s) PO TAKE O NE TABLET BY MOUTH EVERY DAY 07/12/2013 07/05/2014 Inactive propranolol ER 80 mg capsule,24 hr,extended release RxNorm: 202204 1 Capsule(s) PO QD replaces amlodopine 06/20/2013 09/15/2013 Inactive triamcinolone acetonide 0.1 % topical ointment RxNorm: 74730 36 Application TOP BID 06/20/2013 06/26/2013 Inactive Crestor 10 mg tablet RxNorm: 455708 1 Tablet(s) PO QD 04/18/201310/2013 Inactive Viagra 100 mg tablet RxNorm: 623333 1 Tablet(s) PO as directed 01/0508/18/2018 Inactive TAKE ONE TABLET BY MOUTH DIRECTED Crestor 10 mg tablet RxNorm: 146377 1 Tablet(s) PO QD 01/17/201304/06 Inactive metformin ER 500 mg tablet,extended release 24 hr RxNorm: 86 0975 1 Tablet(s) PO QD TAKE ONE TABLET BY MOUTH EVERY DAY 12/23/2012 09/15/2013 Inactive triamcinolone acetonide 0.1 % topical ointment RxNorm: 70205 36 Application TOP BID 08/27/2012 09/02/2012 Inactive ketoconazole 2 % topical cream RxNorm: 324025 1 Application TOP QAM 08/27/2012 09/02/2012 Inactive lisinopril 40 mg tablet RxNorm: 052690 1 Tablet(s) PO QD 07/21/2012 0 07/15/2013 Inactive Crestor 10 mg tablet RxNorm: 645553 1 Tablet(s) PO QD 07/21/201210/04 Inactive amlodipine 10 mg tablet RxNorm: 933372 1 Tablet(s) PO QHS 07/21/2012 07/15/2013 Inactive metformin ER 500 mg tablet,extended release 24 hr RxNorm: 86 0977 Tablet(s) PO TAKE ONE TABLET BY MOUTH EVERY DAY 03/31/2012 12/22/2012 Inactive lisinopril 40 mg tablet RxNorm: 188567 1 Tablet(s) PO QD 07/29/2011 0 07/20/2012 Inactive amlodipine 10 mg tablet RxNorm: 395389 1 Tablet(s) PO QHS 07/29/2011 07/20/2012 Inactive amlodipine 10 mg Tab RxNorm: 298751 1 Tablet(s) PO QHS 07/29/2011 Inactive Viagra 100 mg tablet RxNorm: 289974 1 Tablet(s) PO as directed 07/0601/24/2013 Inactive TAKE ONE TABLET BY MOUTH DIRECTED Crestor 10 mg tablet RxNorm: 779240 1 Tablet(s) PO QD 07/29/201107/05 Inactive Norvasc 5 mg Tab RxNorm: 838500 1 Tablet(s) PO QD 07/16/2011 07/28/19 Inactive Norvasc 5 mg Tab RxNorm: 241173 1 Tablet(s) PO QD 06/26/2011 07/15/19 12 Inactive lisinopril 40 mg Tab RxNorm: 766209 1 Tablet(s) PO QD 05/13/201107/06 Inactive metformin ER 500 mg tablet,extended release 24 hr RxNorm: 86 0977 1 Tablet(s) PO QD 03/18/2011 07/28/2011 Inactive Crestor 10 mg Tab RxNorm: 754815 1 Tablet(s) PO QHS 01/27/20112011 Inactive metformin ER 500 mg 24 hr Tab RxNorm: 372894 1 Tablet(s) PO QD 11/0403/17/2011 Inactive Viagra 100 mg Tab RxNorm: 423210 Tablet(s) PO TAKE ON E TABLET BY MOUTH DIRECTED 08/26/2010 07/28/2011 Inactive metformin ER 500 mg 24 hr Tab RxNorm: 677539 1 Tablet(s) PO QD 07/0611/18/2010 Inactive Crestor 10 mg Tab RxNorm: 721311 1 Tablet(s) PO QHS 07/30/20102010 Inactive Crestor 10 mg Tab RxNorm: 353229 1 Tablet(s) PO QHS 05/20/20102010 Inactive Wellbutrin SR 150 mg Tab RxNorm: 303177 1 Tablet(s) PO QAM 04/24/19 11 07/22/2010 Inactive Multivitamin And Mineral tablet RxNorm: 1 Tablet(s) PO QD No Start Date Active FreeStyle Lite Strips RxNorm: 1 Unit Dose Miscel laneous AC & HS check blood sugar AC and HS No Start Date Active Co Q-10 200 mg capsule RxNorm: 678684 1 Capsule(s) PO QD No Start Date Active lancets RxNorm: 1 Milliliter(s) Miscellaneous AC & HS No Start Robert e Active Vitamin D3 4,000 unit capsule RxNorm: 2095622 1 Capsule(s) PO QD No Start Date 07/08/2016 Inactive Fish Oil 360 mg-1,200 mg capsule RxNorm: 587492 2 Capsule(s) PO QD No Start Date 01/30/2019 Inactive hydrocodone 5 mg-acetaminophen 325 mg tablet RxNorm: 235802 1 Tablet(s) PO Q4H as needed for severe pain No Start Date 12/30/2015 Inactive Xanax 0.25 mg tablet RxNorm: 842974 1/2 Tablet(s) PO PRN for se andrea stress No Start Date 07/08/2016 Inactive lisinopril 40 mg Tab RxNorm: 265199 1 Tablet(s) PO QD No Start Date 0 05/12/2011 Inactive Fish Oil 1,000 mg capsule RxNorm: 1 Capsule(s) PO QD No Start Date 09/18/2014 Inactive naproxen 500 mg Tab RxNorm: 207740 1 Tablet(s) PO BID No Start Date 0 07/28/2011 Inactive aspirin 81 mg tablet RxNorm: 309839 1 Tablet(s) PO QD No Start Date 0 05/09/2018 Inactive Crestor 10 mg Tab RxNorm: 226556 1 Tablet(s) PO QD No Start Date 07/06 Inactive Crestor 5 mg tablet RxNorm: 452544 1 Tablet(s) PO QD No Start Date Inactive Fish Oil Oral RxNorm: Oral No Start Date 09/18/2014 Inactive Viagra 100 mg Tab RxNorm: 971157 1 Tablet(s) PO as directed No Star [...] Result Date S ervice Location MEAN GLUC 7700847 Calc Mean Gluc 140 mg/dL 01/26/2019 Unkn own GLYCOSYLATED HEMOGLOBIN TEST 22305 Hgb A1c 19178-5 6.5 % 1 Unknown COMPREHENSIVE METABOLIC 98183 AST 17 U/L 2018 Unknown COMPREHENSIVE METABOLIC 24518 ALT 19 U/L 2018 Unknown COMPREHENSIVE METABOLIC 91146 BUN 19 mg/dL 2018 Unknown COMPREHENSIVE METABOLIC 85420 ALBUMIN 4.3 g/dL 2018 Unknown COMPREHENSIVE METABOLIC 50962 CHLORIDE 103 mmol/L 01/26 Unknown COMPREHENSIVE METABOLIC 11301 Bili Total 0.6 mg/dL 01/26 Unknown COMPREHENSIVE METABOLIC 68389 ALK PHOS 60 U/L 2018 Unknown COMPREHENSIVE METABOLIC 42179 SODIUM 140 mmol/L 01/26 Unknown COMPREHENSIVE METABOLIC 00772 CREATININE 1.21 mg/dL 01/05 Unknown COMPREHENSIVE METABOLIC 16140 CALCIUM 9.6 mg/dL 2018 Unknown COMPREHENSIVE METABOLIC 13963 POTASSIUM 4.5 mmol/L 01/26 Unknown COMPREHENSIVE METABOLIC 00116 Total Protein 6.7 g/dL Unknown COMPREHENSIVE METABOLIC 70703 Glucose 111 mg/dL 2018 Unknown COMPREHENSIVE METABOLIC 17571 Bicarbonate 28 mmol/L 01/05 Unknown COMPREHENSIVE METABOLIC 28085 AGAP 9 mmol/L 2018 Unknown COMPLETE BLOOD COUNT 8444295 WBC 10.7 10e9/L 019 Unknown COMPLETE BLOOD COUNT [id number] RBC 4.38 10e12/L 2018 Unknown COMPLETE BLOOD COUNT [id number] HEMOGLOBIN 13.7 g/dL 01/27/20 19 Unknown COMPLETE BLOOD COUNT [id number] HEMATOCRIT 42.0 % 01/27/20 19 Unknown COMPLETE BLOOD COUNT [id number] MCV 95.9 fL 9 Unknown COMPLETE BLOOD COUNT [id number] MCH 31.3 pg 9 Unknown COMPLETE BLOOD COUNT 6094255 MCHC 32.6 g/dL 9 Unknown COMPLETE BLOOD COUNT [id number] PLATELET COUNT 232 10e9/L Unknown COMPLETE BLOOD COUNT 0177651 Mean Plt Volume 11.4 fL Unknown COMPLETE BLOOD COUNT 7528200 Neut Auto 68.7 % 9 Unknown COMPLETE BLOOD COUNT 5795113 Lymph Auto 21.2 % 01/27/20 19 Unknown COMPLETE BLOOD COUNT 9790917 Winston Auto 8.1 % 9 Unknown COMPLETE BLOOD COUNT 3130116 RDW 14.1 % 9 Unknown COMPLETE BLOOD COUNT [id number] Eos Auto 1.8 % 9 Unknown COMPLETE BLOOD COUNT [id number] Baso Auto 0.2 % 9 Unknown COMPLETE BLOOD COUNT 9198749 Neutrophil Abs 7.35 10e9/L Unknown COMPLETE BLOOD COUNT 0093288 Lymphocyte Abs 2.27 10e9/L Unknown COMPLETE BLOOD COUNT 3148009 Monocyte Abs 0.87 10e9/L 01/05 Unknown COMPLETE BLOOD COUNT [id number] Eosinophil Abs 0.19 10e9/L Unknown COMPLETE BLOOD COUNT 6149281 RDW-SD 47.7 fL 9 Unknown COMPLETE BLOOD COUNT 8300716 Basophil Abs 0.02 10e9/L 01/05 Unknown GFR CALC [id number] GFR Non Afr Amr 59 mL/min 01/26/2019 Unk nown GFR CALC [id number] GFR Afr Amr >60 mL/min 01/26/2019 Unknow n LIPID GROUP 48422 Cholesterol 215 mg/dL 01/26/2019 Unkno wn LIPID GROUP 33685 Triglyceride 221 mg/dL 01/26/2019 Unkn own [facility] GROUP 95795 HDL CHOLESTEROL 41 mg/dL 01/26/2019 U nknown LIPID GROUP 89171 Chol/HDL Ratio 5.24 ratio 01/26/2019 U nknown LIP[facility] GROUP 28421 NON-HDL Chol 174 mg/dL 01/26/2019 Unkn own LIP[facility] GROUP 33818 LDL Cholesterol 130 mg/dL 01/26/2019 [place] [address] Glucose 104 mg/dL 09/30 [place] [address] CREATININE 1.18 mg/dL [place] [address] BUN 19 mg/dL 09/30 [place] [address] SODIUM 139 mmol/L 09/05 [place] [address] POTASSIUM 4.1 mmol/L 09/05 [place] [address] CHLORIDE 105 mmol/L 09/05 [place] [address] Bicarbonate 26 mmol/L [place] [address] AGAP 8 mmol/L 09/30 [place] [address] CALCIUM 9.3 mg/dL 09/30 Unknown GFR CALC [id number] GFR Non Afr Amr >60 mL/min 09/30/2018 Un known GFR CALC 7484550 GFR Afr Amr >60 mL/min 09/30/2018 Unknow n MICROALBUMIN URINE RANDOM 25468 U Microalbumin <2.0 mg/L 08/19/2018 Unknown MICROALBUMIN URINE RANDOM 28971 U Creatinine 66 mg/dL 0 08/19/2018 Unknown MICROALBUMIN URINE RANDOM 04036 ALB/CR Ratio <3.0 mg/gCR 08/19/2018 Unknown COMPREHENSIVE METABOLIC 13069 AST 21 U/L 2018 Unknown COMPREHENSIVE METABOLIC 44292 ALT 20 U/L 2018 Unknown COMPREHENSIVE METABOLIC 64967 BUN 31 mg/dL 2018 Unknown COMPREHENSIVE METABOLIC 32828 ALBUMIN 4.4 g/dL 2018 Unknown COMPREHENSIVE METABOLIC 41859 CHLORIDE 105 mmol/L 08/16 Unknown COMPREHENSIVE METABOLIC 39413 Bili Total 0.5 mg/dL 08/16 Unknown COMPREHENSIVE METABOLIC 58820 ALK PHOS 40 U/L 2018 Unknown COMPREHENSIVE METABOLIC 75649 SODIUM 140 mmol/L 08/16 Unknown COMPREHENSIVE METABOLIC 70199 CREATININE 1.45 mg/dL 08/04 Unknown COMPREHENSIVE METABOLIC 14003 CALCIUM 9.8 mg/dL 2018 Unknown COMPREHENSIVE METABOLIC 84514 POTASSIUM 5.1 mmol/L 08/16 Unknown COMPREHENSIVE METABOLIC 86629 Total Protein 6.9 g/dL Unknown COMPREHENSIVE METABOLIC 55506 Glucose 110 mg/dL 2018 Unknown COMPREHENSIVE METABOLIC 92144 Bicarbonate 25 mmol/L 08/04 Unknown COMPREHENSIVE METABOLIC 52591 AGAP 10 mmol/L 2018 Unknown GFR CALC [id number] GFR Non Afr Amr 48 mL/min 08/16/2018 Unk nown GFR CALC 0897632 GFR Afr Amr 58 mL/min 08/16/2018 Unknown GLYCOSYLATED HEMOGLOBIN TEST 77476 Hgb A1c 96369-8 5.9 % 0 08/16/2018 Unknown LIPID GROUP 26254 Cholesterol 226 mg/dL 08/16/2018 Unkno wn LIPID GROUP 48009 Triglyceride 335 mg/dL 08/16/2018 Unkn own LIPID GROUP 59409 HDL CHOLESTEROL 32 mg/dL 08/16/2018 U nknown LIPID GROUP 86787 Chol/HDL Ratio 7.06 ratio 08/16/2018 U nknown LIPID GROUP 82044 NON-HDL Chol 194 mg/dL 08/16/2018 Unkn own LIPID GROUP 22702 LDL Cholesterol 127 mg/dL 08/16/2018 U nknown THYROID STIMULATING HORMONE 94917 TSH 2.475 uIU/mL 08/16/2018 Unknown COMPLETE BLOOD COUNT 8163041 WBC 7.5 10e9/L 08/17/19 19 Unknown COMPLETE BLOOD COUNT [id number] RBC 4.09 10e12/L 2018 Unknown COMPLETE BLOOD COUNT 5326570 HEMOGLOBIN 12.9 g/dL 08/17/19 19 Unknown COMPLETE BLOOD COUNT 0256605 HEMATOCRIT 40.0 % 08/17/19 19 Unknown COMPLETE BLOOD COUNT 9270396 MCV 97.8 fL 9 Unknown COMPLETE BLOOD COUNT 3600003 MCH 31.5 pg 9 Unknown COMPLETE BLOOD COUNT 0846855 MCHC 32.3 g/dL 9 Unknown COMPLETE BLOOD COUNT 1185353 PLATELET COUNT 258 10e9/L Unknown COMPLETE BLOOD COUNT 7570579 Mean Plt Volume 11.4 fL Unknown COMPLETE BLOOD COUNT 8362244 Neut Auto 62.9 % 9 Unknown COMPLETE BLOOD COUNT 2436871 Lymph Auto 27.3 % 08/17/19 19 Unknown COMPLETE BLOOD COUNT 7321649 Winston Auto 8.2 % 9 Unknown COMPLETE BLOOD COUNT 7557419 RDW 13.3 % 9 Unknown COMPLETE BLOOD COUNT 1490157 Eos Auto 1.5 % 9 Unknown COMPLETE BLOOD COUNT 6912671 Baso Auto 0.1 % 9 Unknown COMPLETE BLOOD COUNT 0373511 Neutrophil Abs 4.72 10e9/L Unknown COMPLETE BLOOD COUNT 4736061 Lymphocyte Abs 2.05 10e9/L Unknown COMPLETE BLOOD COUNT 3012615 Monocyte Abs 0.62 10e9/L 08/04 Unknown COMPLETE BLOOD COUNT 9923741 Eosinophil Abs 0.11 10e9/L Unknown COMPLETE BLOOD COUNT 2413844 RDW-SD 46.7 fL 9 Unknown COMPLETE BLOOD COUNT 7258262 Basophil Abs 0.01 10e9/L 08/04 Unknown MEAN GLUC 4610013 Calc Mean Gluc 123 mg/dL 08/16/2018 Unkn own LIPID GROUP 26551 Cholesterol 212 mg/dL 05/05/2018 Unkno wn LIPID GROUP 48468 Triglyceride 271 mg/dL 05/05/2018 Unkn own [facility] 38244 HDL CHOLESTEROL 38 mg/dL 05/05/2018 U nknown LIPID GROUP 14385 Chol/HDL Ratio 5.58 ratio 05/05/2018 U nknown LIPID GROUP 03109 NON-HDL Chol 174 mg/dL 05/05/2018 Unkn own LIP[facility] GROUP 74299 LDL Cholesterol 120 mg/dL 05/05/2018 U nknown GFR CALC 7215139 GFR Non Afr Amr 49 mL/min 05/05/2018 Unk nown GFR CALC [id number] GFR Afr Amr 59 mL/min 05/05/2018 Unknown GLYCOSYLATED HEMOGLOBIN TEST 67460 Hgb A1c 09716-9 6.0 % 0 05/05/2018 Unknown MEAN GLUC 4296436 Calc Mean Gluc 126 mg/dL 05/05/2018 Unkn own COMPREHENSIVE METABOLIC 03317 AST 18 U/L 2018 Unknown COMPREHENSIVE METABOLIC 33060 ALT 23 U/L 2018 Unknown COMPREHENSIVE METABOLIC 12133 BUN 30 mg/dL 2018 Unknown COMPREHENSIVE METABOLIC 87142 ALBUMIN 4.3 g/dL 2018 Unknown COMPREHENSIVE METABOLIC 09955 CHLORIDE 106 mmol/L 05/05 Unknown COMPREHENSIVE METABOLIC 22893 Bili Total 0.4 mg/dL 05/05 Unknown COMPREHENSIVE METABOLIC 96215 ALK PHOS 39 U/L 2018 Unknown COMPREHENSIVE METABOLIC 07028 SODIUM 139 mmol/L 05/05 Unknown COMPREHENSIVE METABOLIC 52513 CREATININE 1.44 mg/dL 04/08 Unknown COMPREHENSIVE METABOLIC 53553 CALCIUM 9.6 mg/dL 2018 Unknown COMPREHENSIVE METABOLIC 87729 POTASSIUM 4.7 mmol/L 05/05 Unknown COMPREHENSIVE METABOLIC 69443 Total Protein 6.6 g/dL Unknown COMPREHENSIVE METABOLIC 75529 Glucose 112 mg/dL 2018 Unknown COMPREHENSIVE METABOLIC 07113 Bicarbonate 28 mmol/L 04/08 Unknown COMPREHENSIVE METABOLIC 63741 AGAP 5 mmol/L 2018 Unknown THYROID STIMULATING HORMONE 88116 TSH 3.725 uIU/mL 05/05/2018 Unknown COMPLETE BLOOD COUNT 6142143 WBC 8.2 10e9/L 05/05/19 19 Unknown COMPLETE BLOOD COUNT [id number] RBC 4.02 10e12/L 2018 Unknown COMPLETE BLOOD COUNT [id number] HEMOGLOBIN 12.7 g/dL 05/05/19 19 Unknown COMPLETE BLOOD COUNT [id number] HEMATOCRIT 39.3 % 05/05/19 19 Unknown COMPLETE BLOOD COUNT [id number] MCV 97.8 fL 9 Unknown COMPLETE BLOOD COUNT [id number] MCH 31.6 pg 9 Unknown COMPLETE BLOOD COUNT [id number] MCHC 32.3 g/dL 9 Unknown COMPLETE BLOOD COUNT [id number] PLATELET COUNT 213 10e9/L Unknown COMPLETE BLOOD COUNT [id number] Mean Plt Volume 11.7 fL Unknown COMPLETE BLOOD COUNT [id number] Neut Auto 55.7 % 9 Unknown COMPLETE BLOOD COUNT [id number] Lymph Auto 33.2 % 05/05/19 19 Unknown COMPLETE BLOOD COUNT [id number] Winston Auto 8.5 % 9 Unknown COMPLETE BLOOD COUNT [id number] RDW 13.9 % 9 Unknown COMPLETE BLOOD COUNT [id number] Eos Auto 2.4 % 9 Unknown COMPLETE BLOOD COUNT [id number] Baso Auto 0.2 % 9 Unknown COMPLETE BLOOD COUNT [id number] Neutrophil Abs 4.57 10e9/L Unknown COMPLETE BLOOD COUNT [id number] Lymphocyte Abs 2.72 10e9/L Unknown COMPLETE BLOOD COUNT [id number] Monocyte Abs 0.70 10e9/L 04/08 Unknown COMPLETE BLOOD COUNT [id number] Eosinophil Abs 0.20 10e9/L Unknown COMPLETE BLOOD COUNT [id number] RDW-SD 48.8 fL 9 Unknown COMPLETE BLOOD COUNT [id number] Basophil Abs 0.02 10e9/L 04/08 Unknown MICROALBUMIN URINE RANDOM 04170 U Microalbumin 19.3 mg/L 01/19/2018 Unknown MICROALBUMIN URINE RANDOM 91657 U Creatinine 96 mg/dL 1 Unknown MICROALBUMIN URINE RANDOM 85025 ALB/CR Ratio 20.1 mg/gCR 01/19/2018 Unknown LIPID GROUP 02774 Cholesterol 173 mg/dL 01/13/2018 Unkno wn LIPID GROUP 67341 Triglyceride 386 mg/dL 01/13/2018 Unkn own LIPID GROUP 96602 HDL CHOLESTEROL 37 mg/dL 01/13/2018 U nknown LIPID GROUP 53876 Chol/HDL Ratio 4.68 ratio 01/13/2018 U nknown LIPID GROUP 78554 NON-HDL Chol 136 mg/dL 01/13/2018 Unkn own LIPID GROUP 01737 LDL Cholesterol 59 mg/dL 01/13/2018 U nknown COMPLETE BLOOD COUNT [id number] WBC TNP:Client Request 01/13/2018 Unknown COMPLETE BLOOD COUNT [id number] RBC TNP:Client Request 01/13/2018 Unknown COMPLETE BLOOD COUNT [id number] HEMOGLOBIN TNP:Client Request 01/13/2018 Unknown COMPLETE BLOOD COUNT [id number] HEMATOCRIT TNP:Client Request 01/13/2018 Unknown COMPLETE BLOOD COUNT [id number] MCV TNP:Client Request 01/13/2018 Unknown COMPLETE BLOOD COUNT [id number] MCH TNP:Client Request 01/13/2018 Unknown COMPLETE BLOOD COUNT [id number] MCHC TNP:Client Request 01/13/2018 Unknown COMPLETE BLOOD COUNT [id number] PLATELET COUNT TNP:Client Req uest 01/13/2018 Unknown COMPLETE BLOOD COUNT 7558492 Mean Plt Volume TNP:Client Re quest 01/13/2018 Unknown COMPLETE BLOOD COUNT [id number] Neut Auto TNP:Client Request 01/13/2018 Unknown COMPLETE BLOOD COUNT [id number] Lymph Auto TNP:Client Request 01/13/2018 Unknown COMPLETE BLOOD COUNT [id number] Winston Auto TNP:Client Request 01/13/2018 Unknown COMPLETE BLOOD COUNT [id number] RDW TNP:Client Request 01/13/2018 Unknown COMPLETE BLOOD COUNT [id number] Eos Auto TNP:Client Request 01/13/2018 Unknown COMPLETE BLOOD COUNT [id number] Baso Auto TNP:Client Request 01/13/2018 Unknown COMPLETE BLOOD COUNT [id number] Neutrophil Abs TNP:Client Req uest 01/13/2018 Unknown COMPLETE BLOOD COUNT [id number] Lymphocyte Abs TNP:Client Req uest 01/13/2018 Unknown COMPLETE BLOOD COUNT [id number] Monocyte Abs TNP:Client Reque st 01/13/2018 Unknown COMPLETE BLOOD COUNT [id number] Eosinophil Abs TNP:Client Req uest 01/13/2018 Unknown COMPLETE BLOOD COUNT [id number] RDW-SD TNP:Client Request 01/13/2018 Unknown COMPLETE BLOOD COUNT [id number] Basophil Abs TNP:Client Reque st 01/13/2018 Unknown GLYCOSYLATED HEMOGLOBIN TEST 39512 Hgb A1c 39697-3 6.2 % 1 Unknown THYROID STIMULATING HORMONE 35868 TSH 2.764 uIU/mL 01/13/2018 Unknown COMPREHENSIVE METABOLIC 08624 AST 19 U/L 2017 Unknown COMPREHENSIVE METABOLIC 03217 ALT 21 U/L 2017 Unknown COMPREHENSIVE METABOLIC 24268 BUN 16 mg/dL 2017 Unknown COMPREHENSIVE METABOLIC 49364 ALBUMIN 4.2 g/dL 2017 Unknown COMPREHENSIVE METABOLIC 58023 CHLORIDE 105 mmol/L 01/13 Unknown COMPREHENSIVE METABOLIC 52898 Bili Total 0.5 mg/dL 01/13 Unknown COMPREHENSIVE METABOLIC 89387 ALK PHOS 85 U/L 2017 Unknown COMPREHENSIVE METABOLIC 46456 SODIUM 139 mmol/L 01/13 Unknown COMPREHENSIVE METABOLIC 92796 CREATININE 1.07 mg/dL 01/04 Unknown COMPREHENSIVE METABOLIC 39377 CALCIUM 9.2 mg/dL 2017 Unknown COMPREHENSIVE METABOLIC 08742 POTASSIUM 4.4 mmol/L 01/13 Unknown COMPREHENSIVE METABOLIC 74209 Total Protein 7.7 g/dL Unknown COMPREHENSIVE METABOLIC 35778 Glucose 130 mg/dL 2017 Unknown COMPREHENSIVE METABOLIC 21887 Bicarbonate 27 mmol/L 01/04 Unknown COMPREHENSIVE METABOLIC 77842 AGAP 7 mmol/L 2017 Unknown PSA EQUIMOLAR JERSON 43500 PSA Total 1.16 ng/mL 8 Unknown MEAN GLUC 8106141 Calc Mean Gluc 131 mg/dL 01/13/2018 Unkn own GFR CALC 0643762 GFR Non Afr Amr >60 mL/min 01/13/2018 Un known GFR CALC 7374122 GFR Afr Amr >60 mL/min 01/13/2018 Unknow n MEAN GLUC 6641783 Calc Mean Gluc 134 mg/dL 10/06/2017 Unkn own GFR CALC 0405497 GFR Non Afr Amr >60 mL/min 10/06/2017 Un known GFR CALC 3479892 GFR Afr Amr >60 mL/min 10/06/2017 Unknow n GLYCOSYLATED HEMOGLOBIN TEST 80391 Hgb A1c 28476-4 6.3 % 0 10/06/2017 Unknown VITAMIN B 12 07514 VITAMIN B12 1202 pg/mL 10/06/2017 Unk nown COMPLETE BLOOD COUNT [id number] WBC 7.4 10e9/L 10/07/19 18 Unknown COMPLETE BLOOD COUNT [id number] RBC 4.24 10e12/L 2017 Unknown COMPLETE BLOOD COUNT 5108954 HEMOGLOBIN 13.5 g/dL 10/07/19 18 Unknown COMPLETE BLOOD COUNT [id number] HEMATOCRIT 41.6 % 10/07/19 18 Unknown COMPLETE BLOOD COUNT 6785229 MCV 98.1 fL 8 Unknown COMPLETE BLOOD COUNT 8881370 MCH 31.8 pg 8 Unknown COMPLETE BLOOD COUNT 4586440 MCHC 32.5 g/dL 8 Unknown COMPLETE BLOOD COUNT 3957063 PLATELET COUNT 223 10e9/L 06/2017 Unknown COMPLETE BLOOD COUNT [id number] Mean Plt Volume 11.9 fL 06/2017 Unknown COMPLETE BLOOD COUNT 6813295 Neut Auto 58.0 % 8 Unknown COMPLETE BLOOD COUNT 7736575 Lymph Auto 29.7 % 10/07/19 18 Unknown COMPLETE BLOOD COUNT 4129034 Winston Auto 8.3 % 8 Unknown COMPLETE BLOOD COUNT 8187777 RDW 14.0 % 8 Unknown COMPLETE BLOOD COUNT 4794550 Eos Auto 3.7 % 8 Unknown COMPLETE BLOOD COUNT 5740172 Baso Auto 0.3 % 8 Unknown COMPLETE BLOOD COUNT [id number] Neutrophil Abs 4.29 10e9/L Unknown COMPLETE BLOOD COUNT [id number] Lymphocyte Abs 2.20 10e9/L Unknown COMPLETE BLOOD COUNT [id number] Monocyte Abs 0.61 10e9/L 06/2017 Unknown COMPLETE BLOOD COUNT 8775048 Eosinophil Abs 0.27 10e9/L Unknown COMPLETE BLOOD COUNT 2153206 RDW-SD 48.6 fL 8 Unknown COMPLETE BLOOD COUNT 7586013 Basophil Abs 0.02 10e9/L 06/2017 Unknown LIPID GROUP 05506 Cholesterol 216 mg/dL 10/06/2017 Unkno wn LIPID GROUP 19225 Triglyceride 335 mg/dL 10/06/2017 Unkn own LIPID GROUP 30743 HDL CHOLESTEROL 33 mg/dL 10/06/2017 U nknown LIPID GROUP 07241 Chol/HDL Ratio 6.55 ratio 10/06/2017 U nknown LIPID GROUP 22538 NON-HDL Chol 183 mg/dL 10/06/2017 Unkn own LIPID GROUP 14373 LDL Cholesterol 116 mg/dL 10/06/2017 U nknown COMPREHENSIVE METABOLIC 96870 AST 15 U/L 2017 Unknown COMPREHENSIVE METABOLIC 90702 ALT 15 U/L 2017 Unknown COMPREHENSIVE METABOLIC 73500 BUN 21 mg/dL 2017 Unknown COMPREHENSIVE METABOLIC 96597 ALBUMIN 4.1 g/dL 2017 Unknown COMPREHENSIVE METABOLIC 61856 CHLORIDE 107 mmol/L 10/06 Unknown COMPREHENSIVE METABOLIC 89746 Bili Total 0.6 mg/dL 10/06 Unknown COMPREHENSIVE METABOLIC 27644 ALK PHOS 68 U/L 2017 Unknown COMPREHENSIVE METABOLIC 52209 SODIUM 140 mmol/L 10/06 Unknown COMPREHENSIVE METABOLIC 23072 CREATININE 1.12 mg/dL 06/2017 Unknown COMPREHENSIVE METABOLIC 78496 CALCIUM 9.7 mg/dL 2017 Unknown COMPREHENSIVE METABOLIC 13780 POTASSIUM 4.6 mmol/L 10/06 Unknown COMPREHENSIVE METABOLIC 18509 Total Protein 6.6 g/dL Unknown COMPREHENSIVE METABOLIC 31660 Glucose 114 mg/dL 2017 Unknown COMPREHENSIVE METABOLIC 66435 Bicarbonate 26 mmol/L 06/2017 Unknown COMPREHENSIVE METABOLIC 85833 AGAP 7 mmol/L 2017 Unknown GLYCOSYLATED HEMOGLOBIN TEST 52739 Hgb A1c 91095-2 6.1 % 1 05/05/2016 Unknown GFR CALC 7001397 GFR Non Afr Amr >60 mL/min 03/05/2017 Un known GFR CALC 1447854 GFR Afr Amr >60 mL/min 03/05/2017 Unknow n MEAN GLUC 9846072 Calc Mean Gluc 128 mg/dL 03/05/2017 Unkn own COMPREHENSIVE METABOLIC 68321 AST 18 U/L 2016 Unknown COMPREHENSIVE METABOLIC 38166 ALT 20 U/L 2016 Unknown COMPREHENSIVE METABOLIC 01385 BUN 15 mg/dL 2016 Unknown COMPREHENSIVE METABOLIC 12507 ALBUMIN 4.3 g/dL 2016 Unknown COMPREHENSIVE METABOLIC 29777 CHLORIDE 105 mmol/L 03/05 Unknown COMPREHENSIVE METABOLIC 49285 Bili Total 0.5 mg/dL 03/05 Unknown COMPREHENSIVE METABOLIC 13567 ALK PHOS 57 U/L 2016 Unknown COMPREHENSIVE METABOLIC 73301 SODIUM 141 mmol/L 03/05 Unknown COMPREHENSIVE METABOLIC 94274 CREATININE 1.07 mg/dL 02/06 Unknown COMPREHENSIVE METABOLIC 84450 CALCIUM 9.3 mg/dL 2016 Unknown COMPREHENSIVE METABOLIC 90340 POTASSIUM 4.8 mmol/L 03/05 Unknown COMPREHENSIVE METABOLIC 64247 Total Protein 6.2 g/dL Unknown COMPREHENSIVE METABOLIC 05496 Glucose 118 mg/dL 2016 Unknown COMPREHENSIVE METABOLIC 08874 Bicarbonate 29 mmol/L 02/06 Unknown COMPREHENSIVE METABOLIC 86280 AGAP 7 mmol/L 2016 Unknown FREE T4 64648 T4 Free 1.38 ng/dL 03/05/2017 Unknown COMPLETE BLOOD COUNT 3046601 WBC 8.4 10e9/L 03/05/20 17 Unknown COMPLETE BLOOD COUNT [id number] RBC 4.11 10e12/L 2016 Unknown COMPLETE BLOOD COUNT 2185560 HEMOGLOBIN 12.8 g/dL 03/05/20 17 Unknown COMPLETE BLOOD COUNT 4318895 HEMATOCRIT 40.1 % 03/05/20 17 Unknown COMPLETE BLOOD COUNT 9405134 MCV 97.6 fL 7 Unknown COMPLETE BLOOD COUNT 4376044 MCH 31.1 pg 7 Unknown COMPLETE BLOOD COUNT 0789288 MCHC 31.9 g/dL 7 Unknown COMPLETE BLOOD COUNT 4998156 PLATELET COUNT 184 10e9/L Unknown COMPLETE BLOOD COUNT 6480736 Mean Plt Volume 11.3 fL Unknown COMPLETE BLOOD COUNT 5496207 Neut Auto 62.5 % 7 Unknown COMPLETE BLOOD COUNT 5491784 Lymph Auto 26.4 % 03/05/20 17 Unknown COMPLETE BLOOD COUNT 4870961 Winston Auto 7.9 % 7 Unknown COMPLETE BLOOD COUNT 3709775 RDW 13.5 % 7 Unknown COMPLETE BLOOD COUNT 3081056 Eos Auto 3.0 % 7 Unknown COMPLETE BLOOD COUNT 9988816 Baso Auto 0.2 % 7 Unknown COMPLETE BLOOD COUNT 3133141 Neutrophil Abs 5.25 10e9/L Unknown COMPLETE BLOOD COUNT 8264424 Lymphocyte Abs 2.22 10e9/L Unknown COMPLETE BLOOD COUNT [id number] Monocyte Abs 0.66 10e9/L 02/06 Unknown COMPLETE BLOOD COUNT 0645698 Eosinophil Abs 0.25 10e9/L Unknown COMPLETE BLOOD COUNT 2068844 RDW-SD 46.7 fL 7 Unknown COMPLETE BLOOD COUNT [id number] Basophil Abs 0.02 10e9/L 02/06 Unknown THYROID STIMULATING HORMONE 58653 TSH 2.330 uIU/mL 03/05/2017 Unknown LIPID GROUP 68027 Cholesterol 135 mg/dL 03/05/2017 Unkno wn LIPID GROUP 00496 Triglyceride 297 mg/dL 03/05/2017 Unkn own LIPID GROUP 00143 HDL CHOLESTEROL 34 mg/dL 03/05/2017 U nknown LIPID GROUP 59037 Chol/HDL Ratio 3.97 ratio 03/05/2017 U nknown LIPID GROUP 00276 NON-HDL Chol 101 mg/dL 03/05/2017 Unkn own LIPID GROUP 13240 LDL Cholesterol 42 mg/dL 03/05/2017 U nknown GLYCOSYLATED HEMOGLOBIN TEST 15288 Hgb A1c 95756-8 6.5 % 1 05/07/2015 Unknown GFR CALC 5213290 GFR Non Afr Amr 55 mL/min 03/06/2016 Unk nown GFR CALC 0363903 GFR Afr Amr >60 mL/min 03/06/2016 Unknow n COMPLETE BLOOD COUNT [id number] WBC 8.5 10e9/L 03/06/20 16 Unknown COMPLETE BLOOD COUNT [id number] RBC 4.32 10e12/L 2015 Unknown COMPLETE BLOOD COUNT 0356123 HEMOGLOBIN 13.5 g/dL 03/06/20 16 Unknown COMPLETE BLOOD COUNT 2322655 HEMATOCRIT 41.3 % 03/06/20 16 Unknown COMPLETE BLOOD COUNT 6552109 MCV 95.6 fL 6 Unknown COMPLETE BLOOD COUNT 3595676 MCH 31.3 pg 6 Unknown COMPLETE BLOOD COUNT 5006768 MCHC 32.7 g/dL 6 Unknown COMPLETE BLOOD COUNT 6990732 PLATELET COUNT 191 10e9/L 04/2015 Unknown COMPLETE BLOOD COUNT 6728240 Mean Plt Volume 11.7 fL 04/2015 Unknown COMPLETE BLOOD COUNT 1856086 Neut Auto 64.2 % 6 Unknown COMPLETE BLOOD COUNT 1104288 Lymph Auto 25.9 % 03/06/20 16 Unknown COMPLETE BLOOD COUNT 9184151 Winston Auto 7.8 % 6 Unknown COMPLETE BLOOD COUNT 3574835 RDW 13.4 % 6 Unknown COMPLETE BLOOD COUNT 8697566 Eos Auto 2.0 % 6 Unknown COMPLETE BLOOD COUNT 0281938 Baso Auto 0.1 % 6 Unknown COMPLETE BLOOD COUNT 9818111 Neutrophil Abs 5.46 10e9/L Unknown COMPLETE BLOOD COUNT [id number] Lymphocyte Abs 2.20 10e9/L Unknown COMPLETE BLOOD COUNT [id number] Monocyte Abs 0.66 10e9/L 04/2015 Unknown COMPLETE BLOOD COUNT 5686367 Eosinophil Abs 0.17 10e9/L Unknown COMPLETE BLOOD COUNT 3030110 RDW-SD 45.0 fL 6 Unknown COMPLETE BLOOD COUNT 7599110 Basophil Abs 0.01 10e9/L 04/2015 Unknown FREE T4 76221 T4 Free 1.34 ng/dL 03/06/2016 Unknown MEAN GLUC 9648362 Calc Mean Gluc 140 mg/dL 03/06/2016 Unkn own COMPREHENSIVE METABOLIC 68413 AST 15 U/L 2015 Unknown COMPREHENSIVE METABOLIC 89561 ALT 18 U/L 2015 Unknown COMPREHENSIVE METABOLIC 98909 BUN 21 mg/dL 2015 Unknown COMPREHENSIVE METABOLIC 32769 ALBUMIN 4.3 g/dL 2015 Unknown COMPREHENSIVE METABOLIC 38247 CHLORIDE 103 mmol/L 03/06 Unknown COMPREHENSIVE METABOLIC 76800 Bili Total 0.4 mg/dL 03/06 Unknown COMPREHENSIVE METABOLIC 78248 ALK PHOS 68 U/L 2015 Unknown COMPREHENSIVE METABOLIC 98698 SODIUM 140 mmol/L 03/06 Unknown COMPREHENSIVE METABOLIC 98597 CREATININE 1.31 mg/dL 04/2015 Unknown COMPREHENSIVE METABOLIC 71014 CALCIUM 9.4 mg/dL 2015 Unknown COMPREHENSIVE METABOLIC 02481 POTASSIUM 4.8 mmol/L 03/06 Unknown COMPREHENSIVE METABOLIC 81347 Total Protein 6.6 g/dL Unknown COMPREHENSIVE METABOLIC 72229 Glucose 142 mg/dL 2015 Unknown COMPREHENSIVE METABOLIC 66947 Bicarbonate 29 mmol/L 04/2015 Unknown COMPREHENSIVE METABOLIC 99341 AGAP 8 mmol/L 2015 Unknown THYROID STIMULATING HORMONE 32664 TSH 2.288 uIU/mL 03/06/2016 Unknown LIPID GROUP 40090 Cholesterol 154 mg/dL 03/06/2016 Unkno wn LIPID GROUP 08356 Triglyceride 266 mg/dL 03/06/2016 Unkn own LIPID GROUP 61275 HDL CHOLESTEROL 38 mg/dL 03/06/2016 U nknown LIPID GROUP 41405 Chol/HDL Ratio 4.05 ratio 03/06/2016 U nknown LIPID GROUP 06139 NON-HDL Chol 116 mg/dL 03/06/2016 Unkn own LIPID GROUP 33052 LDL Cholesterol 63 mg/dL 03/06/2016 U nknown MEAN GLUC Mean Glucose 128 mg/dL 08/31/2015 Unknow n COMPLETE BLOOD COUNT 4256604 WBC 8.4 10e9/L 08/31/19 16 Unknown COMPLETE BLOOD COUNT 3489386 RBC 4.12 10e12/L 2015 Unknown COMPLETE BLOOD COUNT 1571600 HEMOGLOBIN 12.8 g/dL 08/31/19 16 Unknown COMPLETE BLOOD COUNT 5092899 HEMATOCRIT 39.6 % 08/31/19 16 Unknown COMPLETE BLOOD COUNT 9138628 MCV 96.1 fL 6 Unknown COMPLETE BLOOD COUNT 6968509 MCH 31.1 pg 6 Unknown COMPLETE BLOOD COUNT 1884361 MCHC 32.3 g/dL 6 Unknown COMPLETE BLOOD COUNT 2491742 PLATELET COUNT 184 10e9/L Unknown COMPLETE BLOOD COUNT 6148225 Mean Plt Volume 12.0 fL Unknown COMPLETE BLOOD COUNT 6458668 Neut Auto 59.8 % 6 Unknown COMPLETE BLOOD COUNT [id number] Lymph Auto 27.9 % 08/31/19 16 Unknown COMPLETE BLOOD COUNT 5269516 Winston Auto 9.1 % 6 Unknown COMPLETE BLOOD COUNT 7272615 RDW 13.6 % 6 Unknown COMPLETE BLOOD COUNT 4866855 Eos Auto 3.1 % 6 Unknown COMPLETE BLOOD COUNT 9916858 Baso Auto 0.1 % 6 Unknown COMPLETE BLOOD COUNT 9398798 Neutrophil Abs 5.02 10e9/L Unknown COMPLETE BLOOD COUNT 8976088 Lymphoctye Abs 2.34 10e9/L Unknown COMPLETE BLOOD COUNT 0276827 Monocyte Abs 0.76 10e9/L 08/05 Unknown COMPLETE BLOOD COUNT 7955974 Eosinophil Abs 0.26 10e9/L Unknown COMPLETE BLOOD COUNT 9845661 RDW-SD 46.3 fL 6 Unknown COMPLETE BLOOD COUNT [id number] Basophil Abs 0.01 10e9/L 08/05 Unknown GLYCOSYLATED HEMOGLOBIN TEST 56100 Hgb A1c 36764-8 6.1 % 0 08/31/2015 Unknown GFR CALC 0990482 GFR Non Afr Amr >60 mL/min 08/31/2015 Un known GFR CALC 7676801 GFR Afr Amr >60 mL/min 08/31/2015 Unknow n FREE T4 40195 T4 Free 1.21 ng/dL 08/31/2015 Unknown THYROID STIMULATING HORMONE 88568 TSH 2.988 uIU/mL 08/31/2015 Unknown COMPREHENSIVE METABOLIC 75803 AST 16 U/L 2015 Unknown COMPREHENSIVE METABOLIC 23873 ALT 19 U/L 2015 Unknown COMPREHENSIVE METABOLIC 78119 BUN 17 mg/dL 2015 Unknown COMPREHENSIVE METABOLIC 48436 ALBUMIN 4.3 g/dL 2015 Unknown COMPREHENSIVE METABOLIC 54783 CHLORIDE 107 mmol/L 08/30 Unknown COMPREHENSIVE METABOLIC 42851 Bili Total 0.4 mg/dL 08/30 Unknown COMPREHENSIVE METABOLIC 45013 ALK PHOS 66 U/L 2015 Unknown COMPREHENSIVE METABOLIC 25247 SODIUM 140 mmol/L 08/30 Unknown COMPREHENSIVE METABOLIC 78433 CREATININE 1.07 mg/dL 08/05 Unknown COMPREHENSIVE METABOLIC 89033 CALCIUM 9.5 mg/dL 2015 Unknown COMPREHENSIVE METABOLIC 54410 POTASSIUM 4.5 mmol/L 08/30 Unknown COMPREHENSIVE METABOLIC 87649 Total Protein 6.7 g/dL Unknown COMPREHENSIVE METABOLIC 38230 Glucose 122 mg/dL 2015 Unknown COMPREHENSIVE METABOLIC 85794 Bicarbonate 26 mmol/L 08/05 Unknown COMPREHENSIVE METABOLIC 26415 AGAP 7 mmol/L 2015 Unknown LIPID GROUP 05979 Cholesterol 171 mg/dL 08/31/2015 Unkno wn LIPID GROUP 93907 Triglyceride 428 mg/dL 08/31/2015 Unkn own LIPID GROUP 03605 HDL CHOLESTEROL 35 mg/dL 08/31/2015 U nknown LIPID GROUP 37201 Chol/HDL Ratio 4.89 ratio 08/31/2015 U nknown LIPID GROUP 97534 NON-HDL Chol 136 mg/dL 08/31/2015 Unkn own LIPID GROUP 05048 LDL Cholesterol 50 mg/dL 08/31/2015 U nknown PSA EQUIMOLAR JERSON 50276 PSA Total 0.47 ng/mL 6 Unknown GFR CALC 6267209 GFR AA >60 ML/MIN 01/12/2015 Unknown GFR CALC 3980422 GFR NON-AA >60 ML/MIN 01/12/2015 Unknown COMPREHENSIVE METABOLIC 47417 AST 18 U/L 2014 Unknown COMPREHENSIVE METABOLIC 57934 ALT 19 IU/L 2014 Unknown COMPREHENSIVE METABOLIC 97297 BUN 19 MG/DL 2014 Unknown COMPREHENSIVE METABOLIC 42097 ALBUMIN 4.7 GM/DL 2014 Unknown COMPREHENSIVE METABOLIC 85889 CHLORIDE 104 MMOL/L 01/12 Unknown COMPREHENSIVE METABOLIC 01891 BILI TOT 0.8 MG/DL 2014 Unknown COMPREHENSIVE METABOLIC 14700 ALK PHOS 58 U/L 2014 Unknown COMPREHENSIVE METABOLIC 95568 SODIUM 139 MMOL/L 01/12 Unknown COMPREHENSIVE METABOLIC 55022 CREATININE 1.09 MG/DL 12/2014 Unknown COMPREHENSIVE METABOLIC 27486 CALCIUM 9.6 MG/DL 2014 Unknown COMPREHENSIVE METABOLIC 99364 POTASSIUM 4.4 MMOL/L 01/12 Unknown COMPREHENSIVE METABOLIC 96134 PROT TOT 6.7 GM/DL 2014 Unknown COMPREHENSIVE METABOLIC 18457 Glucose 109 MG/DL 2014 Unknown COMPREHENSIVE METABOLIC 41612 BICARB 27 MMOL/L 2014 Unknown COMPREHENSIVE METABOLIC 94129 ANION GAP 8 MEQ/L 2014 Unknown LIPID GROUP 48159 HDL TEST 36 MG/DL 01/12/2015 Unknown LIPID GROUP 60901 TRIG 220 MG/DL 01/12/2015 Unknown LIPID GROUP 25388 TEST LDL 58 MG/DL 01/12/2015 Unknown LIPID GROUP 88986 CHOL 138 MG/DL 01/12/2015 Unknown LIPID GROUP 77423 RCHOL/HDL 3.83 RATIO 01/12/2015 Unknow n LIPID GROUP 49137 NON-HDL CH 102 MG/DL 01/12/2015 Unknow n GLYCOSYLATED HEMOGLOBIN TEST 45339 A1C HPLC 86619-5 6.1 % 1 Unknown COMPLETE BLOOD COUNT 0817513 WBC 7.1 10e9/L 01/13/20 15 Unknown COMPLETE BLOOD COUNT 9523123 RBC 4.38 10e12/L 2014 Unknown COMPLETE BLOOD COUNT 7402304 HGB 13.7 g/dL 5 Unknown COMPLETE BLOOD COUNT 3374683 HCT DET 41.3 % 5 Unknown COMPLETE BLOOD COUNT 4441438 MCV 94.3 fL 5 Unknown COMPLETE BLOOD COUNT 5502467 MCH 31.3 pg 5 Unknown COMPLETE BLOOD COUNT 7859834 MCHC 33.2 g/dL 5 Unknown COMPLETE BLOOD COUNT 3851539 PLT 174 10e9/L 01/13/20 15 Unknown COMPLETE BLOOD COUNT 0614637 MPV 11.8 fL 5 Unknown COMPLETE BLOOD COUNT 8980501 SAMIR % 61.3 % 5 Unknown COMPLETE BLOOD COUNT 6281342 LY % 28.3 % 5 Unknown COMPLETE BLOOD COUNT 0800042 MON % 7.6 % 5 Unknown COMPLETE BLOOD COUNT 0636344 EOS % 2.7 % 5 Unknown COMPLETE BLOOD COUNT 3265235 BASO % 0.1 % 5 Unknown COMPLETE BLOOD COUNT 3406704 RDW 13.1 % 5 Unknown COMPLETE BLOOD COUNT 2832126 ABS SAMIR 4.35 10e9/L 015 Unknown COMPLETE BLOOD COUNT 3452383 ABS LYMPH 2.01 10e9/L 015 Unknown COMPLETE BLOOD COUNT 4326834 ABS MONO 0.54 10e9/L 015 Unknown COMPLETE BLOOD COUNT 3405709 ABS EOS 0.19 10e9/L 015 Unknown COMPLETE BLOOD COUNT 4687554 ABS BASO 0.01 10e9/L 015 Unknown COMPLETE BLOOD COUNT 5277408 RDW-SD 43.9 fL 5 Unknown GLYCOSYLATED HEMOGLOBIN TEST 18812 A1C HPLC 80342-4 6.1 % 0 08/15/2014 Unknown COMPLETE BLOOD COUNT 7180320 WBC 9.7 10e9/L 08/16/19 15 Unknown COMPLETE BLOOD COUNT 0308759 RBC 4.29 10e12/L 2014 Unknown COMPLETE BLOOD COUNT 2625187 HGB 13.3 g/dL 5 Unknown COMPLETE BLOOD COUNT 7784644 HCT DET 40.5 % 5 Unknown COMPLETE BLOOD COUNT 8507631 MCV 94.4 fL 5 Unknown COMPLETE BLOOD COUNT 3644154 MCH 31.0 pg 5 Unknown COMPLETE BLOOD COUNT 6331623 MCHC 32.8 g/dL 5 Unknown COMPLETE BLOOD COUNT 8443841 PLT 227 10e9/L 08/16/19 15 Unknown COMPLETE BLOOD COUNT 6985424 MPV 11.0 fL 5 Unknown COMPLETE BLOOD COUNT 1815123 SAMIR % 66.4 % 5 Unknown COMPLETE BLOOD COUNT 9240789 LY % 23.7 % 5 Unknown COMPLETE BLOOD COUNT 2651543 MON % 8.1 % 5 Unknown COMPLETE BLOOD COUNT 2077553 EOS % 1.6 % 5 Unknown COMPLETE BLOOD COUNT 8234832 BASO % 0.2 % 5 Unknown COMPLETE BLOOD COUNT 3823988 RDW 13.4 % 5 Unknown COMPLETE BLOOD COUNT 2572887 ABS SAMIR 6.44 10e9/L 015 Unknown COMPLETE BLOOD COUNT 2000272 ABS LYMPH 2.30 10e9/L 015 Unknown COMPLETE BLOOD COUNT 6153692 ABS MONO 0.79 10e9/L 015 Unknown COMPLETE BLOOD COUNT 2548695 ABS EOS 0.16 10e9/L 015 Unknown COMPLETE BLOOD COUNT 9466152 ABS BASO 0.02 10e9/L 015 Unknown COMPLETE BLOOD COUNT 7964765 RDW-SD 44.7 fL 5 Unknown COMPREHENSIVE METABOLIC 04208 AST 17 U/L 2014 Unknown COMPREHENSIVE METABOLIC 37524 ALT 23 IU/L 2014 Unknown COMPREHENSIVE METABOLIC 11830 BUN 16 MG/DL 2014 Unknown COMPREHENSIVE METABOLIC 09961 ALBUMIN 4.3 GM/DL 2014 Unknown COMPREHENSIVE METABOLIC 14821 CHLORIDE 107 MMOL/L 08/15 Unknown COMPREHENSIVE METABOLIC 52663 BILI TOT 0.4 MG/DL 2014 Unknown COMPREHENSIVE METABOLIC 05943 ALK PHOS 91 U/L 2014 Unknown COMPREHENSIVE METABOLIC 27714 SODIUM 139 MMOL/L 08/15 Unknown COMPREHENSIVE METABOLIC 00278 CREATININE 1.07 MG/DL 08/04 Unknown COMPREHENSIVE METABOLIC 15260 CALCIUM 9.6 MG/DL 2014 Unknown COMPREHENSIVE METABOLIC 92555 POTASSIUM 4.6 MMOL/L 08/15 Unknown COMPREHENSIVE METABOLIC 81747 PROT TOT 6.7 GM/DL 2014 Unknown COMPREHENSIVE METABOLIC 69169 Glucose 111 MG/DL 2014 Unknown COMPREHENSIVE METABOLIC 84423 BICARB 27 MMOL/L 2014 Unknown COMPREHENSIVE METABOLIC 95302 ANION GAP 5 MEQ/L 2014 Unknown GFR CALC 9842263 GFR AA >60 ML/MIN 08/15/2014 Unknown GFR CALC 0957327 GFR NON-AA >60 ML/MIN 08/15/2014 Unknown THYROID STIMULATING HORMONE 37806 TSH 1.598 uIU/ML 08/15/2014 Unknown LIPID GROUP 51779 HDL TEST 33 MG/DL 08/15/2014 Unknown LIPID GROUP 63548 TRIG 187 MG/DL 08/15/2014 Unknown LIPID GROUP 34316 TEST LDL 58 MG/DL 08/15/2014 Unknown LIPID GROUP 23759 CHOL 128 MG/DL 08/15/2014 Unknown LIPID GROUP 04184 RCHOL/HDL 3.88 RATIO 08/15/2014 Unknow n LIPID GROUP 64137 NON-HDL CH 95 MG/DL 08/15/2014 Unknow n PSA EQUIMOLAR JERSON 89606 PSA EQ 0.70 NG/ML 5 Unknown FREE T4 21698 FREE T4 1.32 NG/DL 08/15/2014 Unknown GFR CALC 8577118 GFR AA >60 ML/MIN 12/14/2013 Unknown GFR CALC 0706829 GFR NON-AA 58.0L ML/MIN 12/14/2013 Unkno wn COMPLETE BLOOD COUNT 0553424 WBC 8.7 10e9/L 12/15/19 14 Unknown COMPLETE BLOOD COUNT 6332063 RBC 4.32 10e12/L 2013 Unknown COMPLETE BLOOD COUNT 9697168 HGB 13.5 g/dL 4 Unknown COMPLETE BLOOD COUNT 1668514 HCT DET 40.6 % 4 Unknown COMPLETE BLOOD COUNT 9769927 MCV 94.0 fL 4 Unknown COMPLETE BLOOD COUNT 2992245 MCH 31.3 pg 4 Unknown COMPLETE BLOOD COUNT 6915691 MCHC 33.3 g/dL 4 Unknown COMPLETE BLOOD COUNT 4761719 PLT 205 10e9/L 12/15/19 14 Unknown COMPLETE BLOOD COUNT 9800924 MPV 11.7 fL 4 Unknown COMPLETE BLOOD COUNT 0593505 SAMIR % 62.5 % 4 Unknown COMPLETE BLOOD COUNT 4276503 LY % 26.9 % 4 Unknown COMPLETE BLOOD COUNT 2321153 MON % 8.8 % 4 Unknown COMPLETE BLOOD COUNT 1325489 EOS % 1.7 % 4 Unknown COMPLETE BLOOD COUNT 2783570 BASO % 0.1 % 4 Unknown COMPLETE BLOOD COUNT 0726173 RDW 13.4 % 4 Unknown COMPLETE BLOOD COUNT 6196039 ABS SAMIR 5.44 10e9/L 014 Unknown COMPLETE BLOOD COUNT 4972270 ABS LYMPH 2.34 10e9/L 014 Unknown COMPLETE BLOOD COUNT 1620952 ABS MONO 0.77 10e9/L 014 Unknown COMPLETE BLOOD COUNT [id number] ABS EOS 0.15 10e9/L 014 Unknown COMPLETE BLOOD COUNT [id number] ABS BASO 0.01 10e9/L 014 Unknown COMPLETE BLOOD COUNT [id number] RDW-SD 44.7 fL 4 Unknown COMPREHENSIVE METABOLIC 54423 AST 14 U/L 2013 Unknown COMPREHENSIVE METABOLIC 79975 ALT 12 IU/L 2013 Unknown COMPREHENSIVE METABOLIC 30607 BUN 24 MG/DL 2013 Unknown COMPREHENSIVE METABOLIC 49081 ALBUMIN 4.5 GM/DL 2013 Unknown COMPREHENSIVE METABOLIC 88774 CHLORIDE 104 MMOL/L 12/14 Unknown COMPREHENSIVE METABOLIC 94520 BILI TOT 0.6 MG/DL 2013 Unknown COMPREHENSIVE METABOLIC 28218 ALK PHOS 82 U/L 2013 Unknown COMPREHENSIVE METABOLIC 73494 SODIUM 135 MMOL/L 12/14 Unknown COMPREHENSIVE METABOLIC 67501 CREATININE 1.25 MG/DL 12/05 Unknown COMPREHENSIVE METABOLIC 28185 CALCIUM 9.8 MG/DL 2013 Unknown COMPREHENSIVE METABOLIC 38471 POTASSIUM 4.7 MMOL/L 12/14 Unknown COMPREHENSIVE METABOLIC 30394 PROT TOT 6.7 GM/DL 2013 Unknown COMPREHENSIVE METABOLIC 43515 Glucose 126 MG/DL 2013 Unknown COMPREHENSIVE METABOLIC 69660 BICARB 27 MMOL/L 2013 Unknown COMPREHENSIVE METABOLIC 98343 ANION GAP 4 MEQ/L 2013 Unknown THYROID STIMULATING HORMONE 59632 TSH 3.281 uIU/ML 12/14/2013 Unknown FREE T4 65795 FREE T4 1.28 NG/DL 12/14/2013 Unknown LIPID GROUP 75890 HDL TEST 36 MG/DL 12/14/2013 Unknown LIPID GROUP 88371 TRIG 253 MG/DL 12/14/2013 Unknown LIPID GROUP 41264 TEST LDL 56 MG/DL 12/14/2013 Unknown LIPID GROUP 28256 CHOL 143 MG/DL 12/14/2013 Unknown LIPID GROUP 94241 RCHOL/HDL 3.97 RATIO 12/14/2013 Unknow n LIPID GROUP 75879 NON-HDL CH 107 MG/DL 12/14/2013 Unknow n GLYCOSYLATED HEMOGLOBIN TEST 42744 A1C HPLC 64156-5 6.1 % 0 12/14/2013 Unknown GLYCOSYLATED HEMOGLOBIN TEST 42301 A1C HPLC 16072-8 6.0 % 0 06/08/2013 Unknown LIPID GROUP 75510 HDL TEST 39 MG/DL 06/08/2013 Unknown LIPID GROUP 19859 TRIG 166 MG/DL 06/08/2013 Unknown LIPID GROUP 60898 TEST LDL 86 MG/DL 06/08/2013 Unknown LIPID GROUP 43898 CHOL 158 MG/DL 06/08/2013 Unknown LIPID GROUP 45423 RCHOL/HDL 4.05 RATIO 06/08/2013 Unknow n COMPREHENSIVE METABOLIC 39502 AST 17 U/L 2013 Unknown COMPREHENSIVE METABOLIC 72123 ALT 25 IU/L 2013 Unknown COMPREHENSIVE METABOLIC 68607 BUN 18 MG/DL 2013 Unknown COMPREHENSIVE METABOLIC 62973 ALBUMIN 4.5 GM/DL 2013 Unknown COMPREHENSIVE METABOLIC 23920 CHLORIDE 103 MMOL/L 06/08 Unknown COMPREHENSIVE METABOLIC 14098 BILI TOT 0.4 MG/DL 2013 Unknown COMPREHENSIVE METABOLIC 91912 ALK PHOS 72 U/L 2013 Unknown COMPREHENSIVE METABOLIC 55764 SODIUM 137 MMOL/L 06/08 Unknown COMPREHENSIVE METABOLIC 39963 CREATININE 1.07 MG/DL 08/2013 Unknown COMPREHENSIVE METABOLIC 41730 CALCIUM 9.7 MG/DL 2013 Unknown COMPREHENSIVE METABOLIC 63895 POTASSIUM 4.7 MMOL/L 06/08 Unknown COMPREHENSIVE METABOLIC 75801 PROT TOT 6.6 GM/DL 2013 Unknown COMPREHENSIVE METABOLIC 64103 Glucose 130 MG/DL 2013 Unknown COMPREHENSIVE METABOLIC 10008 BICARB 25 MMOL/L 2013 Unknown COMPREHENSIVE METABOLIC 49640 ANION GAP 9 MEQ/L 2013 Unknown FREE T4 30182 FREE T4 1.29 NG/DL 06/08/2013 Unknown THYROID STIMULATING HORMONE 23000 TSH 2.445 uIU/ML 06/08/2013 Unknown GFR CALC 3515365 GFR AA >60 ML/MIN 06/08/2013 Unknown GFR CALC 4695590 GFR NON-AA >60 ML/MIN 06/08/2013 Unknown COMPLETE BLOOD COUNT [id number] WBC 8.2 10e9/L 06/09/19 14 Unknown COMPLETE BLOOD COUNT [id number] RBC 4.63 10e12/L 2013 Unknown COMPLETE BLOOD COUNT [id number] HGB 14.1 g/dL 4 Unknown COMPLETE BLOOD COUNT [id number] HCT DET 42.6 % 4 Unknown COMPLETE BLOOD COUNT 4798738 MCV 92.0 fL 4 Unknown COMPLETE BLOOD COUNT 8054974 MCH 30.5 pg 4 Unknown COMPLETE BLOOD COUNT 3601327 MCHC 33.1 g/dL 4 Unknown COMPLETE BLOOD COUNT 9369365 PLT 222 10e9/L 06/09/19 14 Unknown COMPLETE BLOOD COUNT 9265765 MPV 10.8 fL 4 Unknown COMPLETE BLOOD COUNT 6521808 SAMIR % 60.8 % 4 Unknown COMPLETE BLOOD COUNT 7093550 LY % 29.2 % 4 Unknown COMPLETE BLOOD COUNT [id number] MON % 7.6 % 4 Unknown COMPLETE BLOOD COUNT [id number] EOS % 2.3 % 4 Unknown COMPLETE BLOOD COUNT 5174829 BASO % 0.1 % 4 Unknown COMPLETE BLOOD COUNT [id number] RDW 13.7 % 4 Unknown COMPLETE BLOOD COUNT 4283588 ABS SAMIR 4.99 10e9/L 014 Unknown COMPLETE BLOOD COUNT [id number] ABS LYMPH 2.39 10e9/L 014 Unknown COMPLETE BLOOD COUNT 8258447 ABS MONO 0.62 10e9/L 014 Unknown COMPLETE BLOOD COUNT [id number] ABS EOS 0.19 10e9/L 014 Unknown COMPLETE BLOOD COUNT 8447565 ABS BASO 0.01 10e9/L 014 Unknown COMPLETE BLOOD COUNT [id number] RDW-SD 45.2 fL 4 Unknown LIPID GROUP 38664 HDL TEST 40 MG/DL 11/11/2012 Unknown LIPID GROUP 07888 TRIG 153 MG/DL 11/11/2012 Unknown LIPID GROUP 04030 TEST LDL 71 MG/DL 11/11/2012 Unknown LIPID GROUP 74160 CHOL 142 MG/DL 11/11/2012 Unknown LIPID GROUP 75693 RCHOL/HDL 3.55 RATIO 11/11/2012 Unknow n GFR CALC 7411194 GFR AA >60 ML/MIN 11/11/2012 Unknown GFR CALC 8092492 GFR NON-AA 57.0L ML/MIN 11/11/2012 Unkno wn HEMOGLOBIN A1C (GLYCOSYLATED) 5699178 A1C HPLC 87767-3 5.9 % 11/11/2012 Unknown THYROID STIMULATING HORMONE 96967 TSH 2.439 uIU/ML 11/11/2012 Unknown COMPLETE BLOOD COUNT 0751983 WBC 8.5 10e9/L 11/12/19 13 Unknown COMPLETE BLOOD COUNT 7289216 RBC 4.42 10e12/L 2012 Unknown COMPLETE BLOOD COUNT 5152766 HGB 13.7 g/dL 3 Unknown COMPLETE BLOOD COUNT 4646165 HCT DET 41.3 % 3 Unknown COMPLETE BLOOD COUNT 9314683 MCV 93.4 fL 3 Unknown COMPLETE BLOOD COUNT 8906346 MCH 31.0 pg 3 Unknown COMPLETE BLOOD COUNT 0925442 MCHC 33.2 g/dL 3 Unknown COMPLETE BLOOD COUNT [id number] PLT 220 10e9/L 11/12/19 13 Unknown COMPLETE BLOOD COUNT 7022539 MPV 10.8 fL 3 Unknown COMPLETE BLOOD COUNT [id number] SAMIR % 60.4 % 3 Unknown COMPLETE BLOOD COUNT 1860279 LY % 28.7 % 3 Unknown COMPLETE BLOOD COUNT 7741276 MON % 8.0 % 3 Unknown COMPLETE BLOOD COUNT 8896000 EOS % 2.8 % 3 Unknown COMPLETE BLOOD COUNT 8593296 BASO % 0.1 % 3 Unknown COMPLETE BLOOD COUNT 5505555 RDW 13.7 % 3 Unknown COMPLETE BLOOD COUNT [id number] ABS SAMIR 5.13 10e9/L 013 Unknown COMPLETE BLOOD COUNT 8079654 ABS LYMPH 2.44 10e9/L 013 Unknown COMPLETE BLOOD COUNT [id number] ABS MONO 0.68 10e9/L 013 Unknown COMPLETE BLOOD COUNT 9128704 ABS EOS 0.24 10e9/L 013 Unknown COMPLETE BLOOD COUNT [id number] ABS BASO 0.01 10e9/L 013 Unknown COMPLETE BLOOD COUNT [id number] RDW-SD 45.6 fL 3 Unknown COMPREHENSIVE METABOLIC 24617 AST 19 U/L 2012 Unknown COMPREHENSIVE METABOLIC 70144 ALT 28 IU/L 2012 Unknown COMPREHENSIVE METABOLIC 61572 BUN 31 MG/DL 2012 Unknown COMPREHENSIVE METABOLIC 14369 ALBUMIN 4.7 GM/DL 2012 Unknown COMPREHENSIVE METABOLIC 04873 CHLORIDE 106 MMOL/L 11/11 Unknown COMPREHENSIVE METABOLIC 26697 BILI TOT 0.5 MG/DL 2012 Unknown COMPREHENSIVE METABOLIC 37096 ALK PHOS 64 U/L 2012 Unknown COMPREHENSIVE METABOLIC 23295 SODIUM 136 MMOL/L 11/11 Unknown COMPREHENSIVE METABOLIC 59401 CREATININE 1.27 MG/DL 11/2012 Unknown COMPREHENSIVE METABOLIC 55687 CALCIUM 9.4 MG/DL 2012 Unknown COMPREHENSIVE METABOLIC 79384 POTASSIUM 4.9 MMOL/L 11/11 Unknown COMPREHENSIVE METABOLIC 36613 PROT TOT 6.7 GM/DL 2012 Unknown COMPREHENSIVE METABOLIC 27471 Glucose 108 MG/DL 2012 Unknown COMPREHENSIVE METABOLIC 57123 BICARB 21 MMOL/L 2012 Unknown COMPREHENSIVE METABOLIC 83311 ANION GAP 9 MEQ/L 2012 Unknown THYROID STIMULATING HORMONE 94931 TSH 2.572 uIU/ML 05/04/2012 Unknown COMPLETE BLOOD COUNT 6401416 WBC 9.3 10e9/L 05/04/19 13 Unknown COMPLETE BLOOD COUNT [id number] RBC 4.43 10e12/L 2012 Unknown COMPLETE BLOOD COUNT 5280048 HGB 14.2 g/dL 3 Unknown COMPLETE BLOOD COUNT 1605838 HCT DET 41.1 % 3 Unknown COMPLETE BLOOD COUNT 7886694 MCV 92.8 fL 3 Unknown COMPLETE BLOOD COUNT 9295568 MCH 32.1 pg 3 Unknown COMPLETE BLOOD COUNT 0926187 MCHC 34.5 g/dL 3 Unknown COMPLETE BLOOD COUNT 0590405 PLT 193 10e9/L 05/04/19 13 Unknown COMPLETE BLOOD COUNT 3159797 MPV 10.8 fL 3 Unknown COMPLETE BLOOD COUNT 3015288 SAMIR % 63.0 % 3 Unknown COMPLETE BLOOD COUNT [id number] LY % 25.3 % 3 Unknown COMPLETE BLOOD COUNT [id number] MON % 9.1 % 3 Unknown COMPLETE BLOOD COUNT [id number] EOS % 2.5 % 3 Unknown COMPLETE BLOOD COUNT 1217987 BASO % 0.1 % 3 Unknown COMPLETE BLOOD COUNT 4317437 RDW 12.6 % 3 Unknown COMPLETE BLOOD COUNT [id number] ABS SAMIR 5.86 10e9/L 013 Unknown COMPLETE BLOOD COUNT 8499122 ABS LYMPH 2.35 10e9/L 013 Unknown COMPLETE BLOOD COUNT 5747608 ABS MONO 0.85 10e9/L 013 Unknown COMPLETE BLOOD COUNT 6774566 ABS EOS 0.23 10e9/L 013 Unknown COMPLETE BLOOD COUNT 8606924 ABS BASO 0.01 10e9/L 013 Unknown COMPLETE BLOOD COUNT 5618924 RDW-SD 41.2 fL 3 Unknown LIPID GROUP 08966 HDL TEST 35 MG/DL 05/04/2012 Unknown LIPID GROUP 65522 TRIG 236 MG/DL 05/04/2012 Unknown LIPID GROUP 44544 TEST LDL 64 MG/DL 05/04/2012 Unknown LIPID GROUP 77716 CHOL 146 MG/DL 05/04/2012 Unknown LIPID GROUP 97664 RCHOL/HDL 4.17 RATIO 05/04/2012 Unknow n COMPREHENSIVE METABOLIC 34944 AST 23 U/L 2012 Unknown COMPREHENSIVE METABOLIC 73527 ALT 33 IU/L 2012 Unknown COMPREHENSIVE METABOLIC 67698 BUN 16 MG/DL 2012 Unknown COMPREHENSIVE METABOLIC 99701 ALBUMIN 4.8 GM/DL 2012 Unknown COMPREHENSIVE METABOLIC 69240 CHLORIDE 104 MMOL/L 05/04 Unknown COMPREHENSIVE METABOLIC 12944 BILI TOT 0.5 MG/DL 2012 Unknown COMPREHENSIVE METABOLIC 59681 ALK PHOS 70 U/L 2012 Unknown COMPREHENSIVE METABOLIC 94631 SODIUM 138 MMOL/L 05/04 Unknown COMPREHENSIVE METABOLIC 66594 CREATININE 1.08 MG/DL 04/07 Unknown COMPREHENSIVE METABOLIC 87635 CALCIUM 9.7 MG/DL 2012 Unknown COMPREHENSIVE METABOLIC 80164 POTASSIUM 4.4 MMOL/L 05/04 Unknown COMPREHENSIVE METABOLIC 89208 PROT TOT 6.8 GM/DL 2012 Unknown COMPREHENSIVE METABOLIC 19253 Glucose 114 MG/DL 2012 Unknown COMPREHENSIVE METABOLIC 69890 BICARB 27 MMOL/L 2012 Unknown COMPREHENSIVE METABOLIC 66571 ANION GAP 7 MEQ/L 2012 Unknown FREE T4 80836 FREE T4 1.11 NG/DL 05/04/2012 Unknown GFR CALC 4607786 GFR AA >60 ML/MIN 05/04/2012 Unknown GFR CALC 1877488 GFR NON-AA >60 ML/MIN 05/04/2012 Unknown GLYCOSYLATED HEMOGLOBIN TEST 33749 A1C HPLC 64391-8 5.8 % 0 10/29/2011 Unknown COMPREHENSIVE METABOLIC 57218 AST 17 U/L 2011 Unknown COMPREHENSIVE METABOLIC 07921 ALT 21 IU/L 2011 Unknown COMPREHENSIVE METABOLIC 73962 BUN 17 MG/DL 2011 Unknown COMPREHENSIVE METABOLIC 21314 ALBUMIN 4.8 GM/DL 2011 Unknown COMPREHENSIVE METABOLIC 64790 CHLORIDE 106 MMOL/L 10/28 Unknown COMPREHENSIVE METABOLIC 50225 BILI TOT 0.6 MG/DL 2011 Unknown COMPREHENSIVE METABOLIC 66353 ALK PHOS 57 U/L 2011 Unknown COMPREHENSIVE METABOLIC 52486 SODIUM 139 MMOL/L 10/28 Unknown COMPREHENSIVE METABOLIC 60689 CREATININE 1.08 MG/DL 10/05 Unknown COMPREHENSIVE METABOLIC 15132 CALCIUM 9.6 MG/DL 2011 Unknown COMPREHENSIVE METABOLIC 88612 POTASSIUM 4.4 MMOL/L 10/28 Unknown COMPREHENSIVE METABOLIC 11803 PROT TOT 6.9 GM/DL 2011 Unknown COMPREHENSIVE METABOLIC 01729 Glucose 104 MG/DL 2011 Unknown COMPREHENSIVE METABOLIC 30697 BICARB 25 MMOL/L 2011 Unknown COMPREHENSIVE METABOLIC 61291 ANION GAP 8 MEQ/L 2011 Unknown LIPID GROUP 69940 HDL TEST 39 MG/DL 10/29/2011 Unknown LIPID GROUP 51773 TRIG 176 MG/DL 10/29/2011 Unknown LIPID GROUP 34381 TEST LDL 70 MG/DL 10/29/2011 Unknown LIPID GROUP 50000 CHOL 144 MG/DL 10/29/2011 Unknown LIPID GROUP 46645 RCHOL/HDL 3.69 RATIO 10/29/2011 Unknow n GFR CALC 0514057 GFR AA >60 ML/MIN 10/29/2011 Unknown GFR CALC 6300745 GFR NON-AA >60 ML/MIN 10/29/2011 Unknown GFR CALC 8647188 GFR AA >60 ML/MIN 03/14/2011 Unknown GFR CALC 2189945 GFR NON-AA >60 ML/MIN 03/14/2011 Unknown GLYCOSYLATED HEMOGLOBIN TEST 11938 A1C HPLC 89125-0 5.7 % 1 05/15/2010 Unknown COMPREHENSIVE METABOLIC 81643 AST 18 U/L 2010 Unknown COMPREHENSIVE METABOLIC 09734 ALT 25 IU/L 2010 Unknown COMPREHENSIVE METABOLIC 87148 BUN 15 MG/DL 2010 Unknown COMPREHENSIVE METABOLIC 53195 ALBUMIN 4.6 GM/DL 2010 Unknown COMPREHENSIVE METABOLIC 43426 CHLORIDE 107 MMOL/L 03/14 Unknown COMPREHENSIVE METABOLIC 68953 BILI TOT 0.6 MG/DL 2010 Unknown COMPREHENSIVE METABOLIC 37188 ALK PHOS 54 U/L 2010 Unknown COMPREHENSIVE METABOLIC 71823 SODIUM 140 MMOL/L 03/14 Unknown COMPREHENSIVE METABOLIC 73313 CREATININE 1.02 MG/DL 12/2010 Unknown COMPREHENSIVE METABOLIC 70092 CALCIUM 9.4 MG/DL 2010 Unknown COMPREHENSIVE METABOLIC 59441 POTASSIUM 4.6 MMOL/L 03/14 Unknown COMPREHENSIVE METABOLIC 34715 PROT TOT 7.0 GM/DL 2010 Unknown COMPREHENSIVE METABOLIC 15320 Glucose 107 MG/DL 2010 Unknown COMPREHENSIVE METABOLIC 40317 BICARB 28 MMOL/L 2010 Unknown COMPREHENSIVE METABOLIC 63696 ANION GAP 5 MEQ/L 2010 Unknown LIPID GROUP 68321 HDL TEST 39 MG/DL 03/14/2011 Unknown LIPID GROUP 51554 TRIG 157 MG/DL 03/14/2011 Unknown LIPID GROUP 39738 TEST LDL 66 MG/DL 03/14/2011 Unknown LIPID GROUP 71470 CHOL 136 MG/DL 03/14/2011 Unknown LIPID GROUP 47909 RCHOL/HDL 3.49 RATIO 03/14/2011 Unknow n GFR CALC 4684511 GFR AA >60 ML/MIN 11/11/2010 Unknown GFR CALC 5085380 GFR NON-AA >60 ML/MIN 11/11/2010 Unknown LIPID GROUP 50527 HDL TEST 39 MG/DL 11/11/2010 Unknown LIPID GROUP 64410 TRIG 212 MG/DL 11/11/2010 Unknown LIPID GROUP 37279 TEST LDL 67 MG/DL 11/11/2010 Unknown LIPID GROUP 12100 CHOL 148 MG/DL 11/11/2010 Unknown LIPID GROUP 40559 RCHOL/HDL 3.79 RATIO 11/11/2010 Unknow n COMPREHENSIVE METABOLIC 74793 AST 17 U/L 2010 Unknown COMPREHENSIVE METABOLIC 97388 ALT 21 IU/L 2010 Unknown COMPREHENSIVE METABOLIC 01488 BUN 16 MG/DL 2010 Unknown COMPREHENSIVE METABOLIC 32420 ALBUMIN 4.6 GM/DL 2010 Unknown COMPREHENSIVE METABOLIC 52867 CHLORIDE 106 MMOL/L 11/11 Unknown COMPREHENSIVE METABOLIC 97781 BILI TOT 0.5 MG/DL 2010 Unknown COMPREHENSIVE METABOLIC 63233 ALK PHOS 61 U/L 2010 Unknown COMPREHENSIVE METABOLIC 03898 SODIUM 139 MMOL/L 11/11 Unknown COMPREHENSIVE METABOLIC 95223 CREATININE 1.00 MG/DL 11/2010 Unknown COMPREHENSIVE METABOLIC 12503 CALCIUM 9.5 MG/DL 2010 Unknown COMPREHENSIVE METABOLIC 60660 POTASSIUM 4.5 MMOL/L 11/11 Unknown COMPREHENSIVE METABOLIC 03508 PROT TOT 6.9 GM/DL 2010 Unknown COMPREHENSIVE METABOLIC 53471 Glucose 111 MG/DL 2010 Unknown COMPREHENSIVE METABOLIC 49358 BICARB 26 MMOL/L 2010 Unknown COMPREHENSIVE METABOLIC 97717 ANION GAP 7 MEQ/L 2010 Unknown HEMOGLOBIN A1C (GLYCOSYLATED) 50964 A1C [facility] 46454-1 5.6 % 07/24/2010 Unknown GFR CALC 0471432 GFR AA >60 ML/MIN 07/23/2010 Unknown GFR CALC 4591182 GFR NON-AA >60 ML/MIN 07/23/2010 Unknown COMPREHENSIVE METABOLIC 18468 AST 19 U/L 2010 Unknown COMPREHENSIVE METABOLIC 70339 ALT 33 IU/L 2010 Unknown COMPREHENSIVE METABOLIC 13898 BUN 14 MG/DL 2010 Unknown COMPREHENSIVE METABOLIC 65050 ALBUMIN 4.7 GM/DL 2010 Unknown COMPREHENSIVE METABOLIC 48454 CHLORIDE 107 MMOL/L 07/23 Unknown COMPREHENSIVE METABOLIC 45934 BILI TOT 0.4 MG/DL 2010 Unknown COMPREHENSIVE METABOLIC 67627 ALK PHOS 80 U/L 2010 Unknown COMPREHENSIVE METABOLIC 55855 SODIUM 141 MMOL/L 07/23 Unknown COMPREHENSIVE METABOLIC 41582 CREATININE 0.97 MG/DL 07/05 Unknown COMPREHENSIVE METABOLIC 85560 CALCIUM 9.5 MG/DL 2010 Unknown COMPREHENSIVE METABOLIC 61895 POTASSIUM 4.1 MMOL/L 07/23 Unknown COMPREHENSIVE METABOLIC 58860 PROT TOT 6.8 GM/DL 2010 Unknown COMPREHENSIVE METABOLIC 37523 Glucose 120 MG/DL 2010 Unknown COMPREHENSIVE METABOLIC 21442 BICARB 26 MMOL/L 2010 Unknown COMPREHENSIVE METABOLIC 58459 ANION GAP 8 MEQ/L 2010 Unknown LIPID GROUP 23861 HDL TEST 41 MG/DL 07/23/2010 Unknown LIPID GROUP 81318 TRIG 175 MG/DL 07/23/2010 Unknown LIPID GROUP 48552 TEST LDL 72 MG/DL 07/23/2010 Unknown LIPID GROUP 09112 CHOL 148 MG/DL 07/23/2010 Unknown LIPID GROUP 84208 RCHOL/HDL 3.61 RATIO 07/23/2010 Unknow n PSA FREE AND TOTAL 01136|17400 % FREE PSA FOOTNOTE % 011 Unknown PSA FREE AND TOTAL 29603|42823 XPSA TOTAL 0.83 NG/ML 011 Unknown PSA FREE AND TOTAL 75896|69715 XPSA FREE 0.13 NG/ML 04/26/19 11 Unknown VITAMIN D TOTAL (25 HYDROXY) 80590 VIT D TOTL 26 NG/ML 04/22/2010 Unknown TESTOSTERONE TOTAL 37187 TESTOS TO 387 NG/DL 04/19/2010 Unknown GFR CALC 8158479 GFR AA >60 ML/MIN 04/19/2010 Unknown GFR CALC 6260549 GFR NON-AA >60 ML/MIN 04/19/2010 Unknown COMPLETE BLOOD COUNT 74053 WBC 7.0 10e9/L 04/19/19 11 Unknown COMPLETE BLOOD COUNT 21154 RBC 5.07 10e12/L 2010 Unknown COMPLETE BLOOD COUNT 83833 HGB 15.6 g/dL 1 Unknown COMPLETE BLOOD COUNT 86674 HCT DET 46.2 % 1 Unknown COMPLETE BLOOD COUNT 28952 MCV 91.1 fL 1 Unknown COMPLETE BLOOD COUNT 62019 MCH 30.8 pg 1 Unknown COMPLETE BLOOD COUNT 48320 MCHC 33.8 g/dL 1 Unknown COMPLETE BLOOD COUNT 64144 PLT 205 10e9/L 04/19/19 11 Unknown COMPLETE BLOOD COUNT 02064 MPV 11.1 fL 1 Unknown COMPLETE BLOOD COUNT 47776 SAMIR % 62.4 % 1 Unknown COMPLETE BLOOD COUNT 55604 LY % 28.5 % 1 Unknown COMPLETE BLOOD COUNT 76268 MON % 6.9 % 1 Unknown COMPLETE BLOOD COUNT 74302 EOS % 2.1 % 1 Unknown COMPLETE BLOOD COUNT 06197 BASO % 0.1 % 1 Unknown COMPLETE BLOOD COUNT 68973 RDW 13.4 % 1 Unknown COMPLETE BLOOD COUNT 78109 ABS SAMIR 4.37 10e9/L 011 Unknown COMPLETE BLOOD COUNT 58346 ABS LYMPH 2.00 10e9/L 011 Unknown COMPLETE BLOOD COUNT 19920 ABS MONO 0.48 10e9/L 011 Unknown COMPLETE BLOOD COUNT 67926 ABS EOS 0.15 10e9/L 011 Unknown COMPLETE BLOOD COUNT 74544 ABS BASO 0.01 10e9/L 011 Unknown COMPLETE BLOOD COUNT 88009 RDW-SD 43.8 fL 1 Unknown LIPID GROUP 40163 HDL TEST 39 MG/DL 04/19/2010 Unknown LIPID GROUP 89237 TRIG 244 MG/DL 04/19/2010 Unknown LIPID GROUP 92883 TEST LDL 168 MG/DL 04/19/2010 Unknown LIPID GROUP 96826 CHOL 256 MG/DL 04/19/2010 Unknown LIPID GROUP 51581 RCHOL/HDL 6.56 RATIO 04/19/2010 Unknow n COMPREHENSIVE METABOLIC 33068 AST 28 U/L 2010 Unknown COMPREHENSIVE METABOLIC 38867 ALT 46 IU/L 2010 Unknown COMPREHENSIVE METABOLIC 71881 BUN 14 MG/DL 2010 Unknown COMPREHENSIVE METABOLIC 47721 ALBUMIN 4.9 GM/DL 2010 Unknown COMPREHENSIVE METABOLIC 92307 CHLORIDE 104 MMOL/L 04/19 Unknown COMPREHENSIVE METABOLIC 59624 BILI TOT 0.8 MG/DL 2010 Unknown COMPREHENSIVE METABOLIC 29807 ALK PHOS 71 U/L 2010 Unknown COMPREHENSIVE METABOLIC 40337 SODIUM 139 MMOL/L 04/19 Unknown COMPREHENSIVE METABOLIC 65430 CREATININE 1.06 MG/DL 04/06 Unknown COMPREHENSIVE METABOLIC 08186 CALCIUM 9.9 MG/DL 2010 Unknown COMPREHENSIVE METABOLIC 39951 POTASSIUM 4.3 MMOL/L 04/19 Unknown COMPREHENSIVE METABOLIC 10537 PROT TOT 7.2 GM/DL 2010 Unknown COMPREHENSIVE METABOLIC 66474 Glucose 99 MG/DL 2010 Unknown COMPREHENSIVE METABOLIC 04004 BICARB 28 MMOL/L 2010 Unknown COMPREHENSIVE METABOLIC 29328 ANION GAP 7 MEQ/L 2010 Unknown FREE T4 12768 FREE T4 1.26 NG/DL 04/19/2010 Unknown Procedures Procedure Codes Date ROUTINE VENIPUNCTURE CPT-4: 40626 05/24/2019 COMPREHEN METABOLIC PANEL CPT-4: 34405 05/24/2019 A1C HPLC CPT-4: 89478 05/24/2019 FLU VACC PRSV FREE INC ANTIG 65 AND OLDER CPT-4: 89583 01/26/2019 FLU VACC PRSV FREE INC ANTIG 65 AND OLDER CPT-4: 93410 01/26/2019 ADMIN INFLUENZA VIRUS VAC CPT-4: G0008 01/26/2019 ROUTINE VENIPUNCTURE CPT-4: 19877 01/26/2019 COMPREHEN METABOLIC PANEL CPT-4: 00530 01/26/2019 COMPLETE CBC W/AUTO DIFF WBC CPT-4: 13656 01/26/2019 LIPID PANEL CPT-4: 90250 01/26/2019 A1C HPLC CPT-4: 03398 01/26/2019 ROUTINE VENIPUNCTURE CPT-4: 79218 09/30/2018 METABOLIC PANEL TOTAL CA CPT-4: 53824 09/30/2018 URINALYSIS NONAUTO W/O SCOPE CPT-4: 31544 08/19/2018 URINE CULTURE/ COLONY COUNT CPT-4: 89067 08/19/2018 MICROALBUMIN QUANTITATIVE CPT-4: 12682 08/19/2018 ROUTINE VENIPUNCTURE CPT-4: 14634 08/16/2018 ASSAY THYROID STIM HORMONE CPT-4: 62162 08/16/2018 COMPREHEN METABOLIC PANEL CPT-4: 39467 08/16/2018 COMPLETE CBC W/AUTO DIFF WBC CPT-4: 18675 08/16/2018 LIPID PANEL CPT-4: 65958 08/16/2018 A1C HPLC CPT-4: 61535 08/16/2018 LIPID PANEL CPT-4: 10422 05/05/2018 COMPREHEN METABOLIC PANEL CPT-4: 59072 05/05/2018 ROUTINE VENIPUNCTURE CPT-4: 87886 05/05/2018 A1C HPLC CPT-4: 48507 05/05/2018 COMPLETE CBC W/AUTO DIFF WBC CPT-4: 46233 05/05/2018 ASSAY THYROID STIM HORMONE CPT-4: 70150 05/05/2018 MICROALBUMIN QUANTITATIVE CPT-4: 00553 01/19/2018 PRESCRIP TRANSMIT VIA ERX SY CPT-4: G8553 01/19/2018 ROUTINE VENIPUNCTURE CPT-4: 22594 01/13/2018 COMPREHEN METABOLIC PANEL CPT-4: 81955 01/13/2018 A1C HPLC CPT-4: 77372 01/13/2018 LIPID PANEL CPT-4: 86596 01/13/2018 ASSAY OF PSA TOTAL CPT-4: 29875 01/13/2018 ASSAY THYROID STIM HORMONE CPT-4: 87731 01/13/2018 ROUTINE VENIPUNCTURE CPT-4: 76603 10/06/2017 COMPREHEN METABOLIC PANEL CPT-4: 55678 10/06/2017 COMPLETE CBC W/AUTO DIFF WBC CPT-4: 54660 10/06/2017 LIPID PANEL CPT-4: 19058 10/06/2017 A1C HPLC CPT-4: 57118 10/06/2017 VITAMIN B-12 CPT-4: 15791 10/06/2017 DESTRUCT PREMALG LESION (Cryosurgery) CPT-4: 02816 DESTRUCT PREMALG LES 2-14 CPT-4: 87993 04/23/2017 PRESCRIP TRANSMIT VIA ERX SY CPT-4: G8553 03/11/2017 ROUTINE VENIPUNCTURE CPT-4: 61572 03/05/2017 ASSAY OF FREE THYROXINE CPT-4: 00041 03/05/2017 ASSAY THYROID STIM HORMONE CPT-4: 93702 03/05/2017 COMPREHEN METABOLIC PANEL CPT-4: 45110 03/05/2017 COMPLETE CBC W/AUTO DIFF WBC CPT-4: 53276 03/05/2017 LIPID PANEL CPT-4: 78852 03/05/2017 A1C HPLC CPT-4: 65193 03/05/2017 ROUTINE VENIPUNCTURE CPT-4: 46306 06/16/2016 ASSAY OF FREE THYROXINE CPT-4: 97747 06/16/2016 ASSAY THYROID STIM HORMONE CPT-4: 81708 06/16/2016 COMPREHEN METABOLIC PANEL CPT-4: 36029 06/16/2016 COMPLETE CBC W/AUTO DIFF WBC CPT-4: 67941 06/16/2016 LIPID PANEL CPT-4: 78902 06/16/2016 A1C HPLC CPT-4: 68615 06/16/2016 ROUTINE VENIPUNCTURE CPT-4: 86882 03/06/2016 ASSAY OF FREE THYROXINE CPT-4: 90814 03/06/2016 ASSAY THYROID STIM HORMONE CPT-4: 42151 03/06/2016 COMPREHEN METABOLIC PANEL CPT-4: 17328 03/06/2016 COMPLETE CBC W/AUTO DIFF WBC CPT-4: 53684 03/06/2016 LIPID PANEL CPT-4: 32235 03/06/2016 A1C HPLC CPT-4: 37127 03/06/2016 PRESCRIP TRANSMIT VIA ERX SY CPT-4: G8553 09/10/2015 PNEUMOCOCCAL VACC 23 ROSANNE IM CPT-4: 70880 09/06/2015 ADMIN PNEUMOCOCCAL VACCINE CPT-4: G0009 09/06/2015 ROUTINE VENIPUNCTURE CPT-4: 94216 08/31/2015 COMPREHEN METABOLIC PANEL CPT-4: 85881 08/31/2015 COMPLETE CBC W/AUTO DIFF WBC CPT-4: 20250 08/31/2015 LIPID PANEL CPT-4: 18322 08/31/2015 ASSAY OF PSA TOTAL CPT-4: 06279 08/31/2015 A1C HPLC CPT-4: 25352 08/31/2015 ASSAY OF FREE THYROXINE CPT-4: 65528 08/31/2015 ASSAY THYROID STIM HORMONE CPT-4: 47037 08/31/2015 PRESCRIP TRANSMIT VIA ERX SY CPT-4: G8553 06/29/2015 FLU VACC PRSV FREE INC ANTIG 65 AND OLDER CPT-4: 08184 01/17/2015 PNEUMOCOCCAL VACC 13 ROSANNE IM CPT-4: 19776 01/17/2015 ADMIN INFLUENZA VIRUS VAC CPT-4: G0008 01/17/2015 ADMIN PNEUMOCOCCAL VACCINE CPT-4: G0009 01/17/2015 DESTRUCT PREMALG LESION (Cryosurgery) CPT-4: 82169 PRESCRIP TRANSMIT VIA ERX SY CPT-4: G8553 01/17/2015 ROUTINE VENIPUNCTURE CPT-4: 51781 01/12/2015 COMPREHEN METABOLIC PANEL CPT-4: 51564 01/12/2015 COMPLETE CBC W/AUTO DIFF WBC CPT-4: 87589 01/12/2015 LIPID PANEL CPT-4: 38034 01/12/2015 A1C HPLC CPT-4: 40057 01/12/2015 DESTRUCT PREMALG LESION (Cryosurgery) CPT-4: 83680 ROUTINE VENIPUNCTURE CPT-4: 44656 08/15/2014 COMPREHEN METABOLIC PANEL CPT-4: 81292 08/15/2014 COMPLETE CBC W/AUTO DIFF WBC CPT-4: 72207 08/15/2014 LIPID PANEL CPT-4: 92324 08/15/2014 A1C HPLC CPT-4: 74569 08/15/2014 ASSAY OF PSA TOTAL CPT-4: 59267 08/15/2014 ASSAY OF FREE THYROXINE CPT-4: 19371 08/15/2014 ASSAY THYROID STIM HORMONE CPT-4: 15678 08/15/2014 ROUTINE VENIPUNCTURE CPT-4: 58625 12/14/2013 ASSAY OF FREE THYROXINE CPT-4: 09102 12/14/2013 ASSAY THYROID STIM HORMONE CPT-4: 87840 12/14/2013 COMPREHEN METABOLIC PANEL CPT-4: 27689 12/14/2013 COMPLETE CBC W/AUTO DIFF WBC CPT-4: 10796 12/14/2013 LIPID PANEL CPT-4: 33326 12/14/2013 A1C HPLC CPT-4: 56099 12/14/2013 ROUTINE VENIPUNCTURE CPT-4: 17490 06/08/2013 ASSAY OF FREE THYROXINE CPT-4: 83829 06/08/2013 ASSAY THYROID STIM HORMONE CPT-4: 85738 06/08/2013 COMPREHEN METABOLIC PANEL CPT-4: 42479 06/08/2013 COMPLETE CBC W/AUTO DIFF WBC CPT-4: 15252 06/08/2013 LIPID PANEL CPT-4: 65769 06/08/2013 A1C HPLC CPT-4: 47655 06/08/2013 ROUTINE VENIPUNCTURE CPT-4: 47255 11/11/2012 COMPREHEN METABOLIC PANEL CPT-4: 98325 11/11/2012 COMPLETE CBC W/AUTO DIFF WBC CPT-4: 34077 11/11/2012 LIPID PANEL CPT-4: 80616 11/11/2012 A1C GLYCOSYLATED HEMOGLOBIN TEST CPT-4: 01054 013 ASSAY THYROID STIM HORMONE CPT-4: 64144 11/11/2012 ROUTINE VENIPUNCTURE CPT-4: 44115 05/04/2012 ASSAY OF FREE THYROXINE CPT-4: 80205 05/04/2012 ASSAY THYROID STIM HORMONE CPT-4: 97640 05/04/2012 COMPREHEN METABOLIC PANEL CPT-4: 94094 05/04/2012 COMPLETE CBC W/AUTO DIFF WBC CPT-4: 32326 05/04/2012 LIPID PANEL CPT-4: 16127 05/04/2012 DESTRUCT PREMALG LESION (Cryosurgery) CPT-4: 28143 DESTRUCT PREMALG LES 2-14 CPT-4: 46047 03/02/2012 ROUTINE VENIPUNCTURE CPT-4: 25297 10/29/2011 COMPREHEN METABOLIC PANEL CPT-4: 54535 10/29/2011 LIPID PANEL CPT-4: 96662 10/29/2011 A1C GLYCOSYLATED HEMOGLOBIN TEST CPT-4: 45719 012 ROUTINE VENIPUNCTURE CPT-4: 37557 07/29/2011 COMPREHEN METABOLIC PANEL CPT-4: 17315 07/29/2011 LIPID PANEL CPT-4: 49766 07/29/2011 A1C GLYCOSYLATED HEMOGLOBIN TEST CPT-4: 50008 012 ROUTINE VENIPUNCTURE CPT-4: 49440 03/14/2011 COMPREHEN METABOLIC PANEL CPT-4: 89624 03/14/2011 LIPID PANEL CPT-4: 65217 03/14/2011 A1C GLYCOSYLATED HEMOGLOBIN TEST CPT-4: 27088 011 ROUTINE VENIPUNCTURE CPT-4: 90755 11/11/2010 COMPREHEN METABOLIC PANEL CPT-4: 70234 11/11/2010 LIPID PANEL CPT-4: 81585 11/11/2010 URINE CULTURE/ COLONY COUNT CPT-4: 61153 11/11/2010 URINALYSIS NONAUTO W/O SCOPE CPT-4: 73783 10/29/2010 URINE CULTURE/ COLONY COUNT CPT-4: 40193 10/29/2010 LIPID PANEL CPT-4: 66854 07/23/2010 COMPREHEN METABOLIC PANEL CPT-4: 10297 07/23/2010 ROUTINE VENIPUNCTURE CPT-4: 51259 07/23/2010 ROUTINE VENIPUNCTURE CPT-4: 24441 04/26/2010 PSA FREE AND TOTAL CPT-4: 63467|58476 04/26/2010 OCCULT BLOOD FECES CPT-4: 64416 04/24/2010 ROUTINE VENIPUNCTURE CPT-4: 35322 04/19/2010 COMPLETE CBC W/AUTO DIFF WBC CPT-4: 00952 04/19/2010 COMPREHEN METABOLIC PANEL CPT-4: 67364 04/19/2010 LIPID PANEL CPT-4: 42461 04/19/2010 TESTOSTERONE TOTAL - MALE CPT-4: 57023 04/19/2010 ASSAY THYROID STIM HORMONE CPT-4: 57420 04/19/2010 ASSAY OF FREE THYROXINE CPT-4: 74936 04/19/2010 VITAMIN D TOTAL (25 HYDROXY) CPT-4: 35579 04/19/2010 Vital Signs Date Vital 01/31/2019 Blood [...] 1: 112/70 Code: 8480-6 BMI: 28.9 Code: 57056-3 Heart Rate 1: 60 bpm Height: 6'3" Respiratory Rate: 20 bpm SpO2: 95% Tempera ture: 36.6 (C) / 97.9 (F) Weight: 231 lbs 01/19/2018 Blood Pressure 1: 150/82 Code: 8480-6 Heart Rate 1: 63 bpm Respiratory Rate: 18 bpm SpO2: 98% Temperature: 36.0 (C) / 96.8 (F) We ight: 225 lbs 10/15/2017 Blood Pressure 1: 126/82 Code: 8480-6 BMI: 27.9 Code: 08719-7 Heart Rate 1: 64 bpm Height: 6'3" Respiratory Rate: 20 bpm SpO2: 96% Tempera ture: 36.7 (C) / 98.1 (F) Weight: 223 lbs 04/23/2017 Blood Pressure 1: 136/74 Code: 8480-6 BMI: 28.7 Code: 19494-6 Heart Rate 1: 76 bpm Height: 6'3" Respiratory Rate: 20 bpm Temperature: 37 .0 (C) / 98.6 (F) Weight: 230 lbs 03/11/2017 Blood Pressure 1: 136/66 Code: 8480-6 BMI: 28.6 Code: 99578-0 Heart Rate 1: 60 bpm Height: 6'3" Respiratory Rate: 20 bpm Temperature: 36 .7 (C) / 98.1 (F) Weight: 229 lbs 07/09/2016 Blood Pressure 1: 132/80 Code: 8480-6 BMI: 27.7 Code: 11573-1 Heart Rate 1: 64 bpm Height: 6'3" Respiratory Rate: 20 bpm SpO2: 96% Tempera ture: 36.9 (C) / 98.4 (F) Weight: 222 lbs 03/10/2016 Blood Pressure 1: 134/78 Code: 8480-6 BMI: 28.5 Code: 65223-8 Heart Rate 1: 60 bpm Height: 6'3" Respiratory Rate: 20 bpm SpO2: 96% Tempera ture: 36.7 (C) / 98.1 (F) Weight: 228 lbs 09/12/2015 Blood Pressure 1: 13678 Code: 8480-6 Heart Rate 1: 84 bpm Height: Respiratory Rate: 24 bpm SpO2: 97% Temperature: 36.4 (C) / 97.6 (F) We ight: 09/10/2015 Blood Pressure 1: 124/76 Code: 8480-6 BMI: 28.5 Code: 17863-6 Heart Rate 1: 76 bpm Height: 6'3" Respiratory Rate: 24 bpm SpO2: 97% Tempera ture: 36.4 (C) / 97.6 (F) Weight: 228 lbs 09/06/2015 Blood Pressure 1: 12482 Code: 8480-6 BMI: 29.0 Code: 93911-3 Heart Rate 1: 66 bpm Height: 6'3" Respiratory Rate: 20 bpm SpO2: 97% Tempera ture: 36.4 (C) / 97.6 (F) Weight: 232 lbs 06/29/2015 Blood Pressure 1: 124/82 Code: 8480-6 Heart Rate 1: 88 bpm Height: Respiratory Rate: 20 bpm Temperature: 36.7 (C) / 98.1 (F) Weight: 01/17/2015 Blood Pressure 1: 124/78 Code: 8480-6 BMI: 27.7 Code: 27049-2 Heart Rate 1: 76 bpm Height: 6'3" Respiratory Rate: 20 bpm Temperature: 36 .6 (C) / 97.8 (F) Weight: 222 lbs 09/19/2014 Blood Pressure 1: 128/80 Code: 8480-6 BMI: 27.4 Code: 49684-5 Heart Rate 1: 64 bpm Height: 6'3" Respiratory Rate: 20 bpm Temperature: 36 .4 (C) / 97.6 (F) Weight: 219 lbs 10/17/2013 Blood Pressure 1: 116/70 Code: 8480-6 Heart Rate 1: 88 bpm Respiratory Rate: 20 bpm Temperature: 36.9 (C) / 98.4 (F) Weight: 220 lbs 09/23/2013 Blood Pressure 1: 124/80 Code: 8480-6 BMI: 28.7 Code: 74326-8 Heart Rate 1: 76 bpm Height: 6'3" Respiratory Rate: 20 bpm Temperature: 36 .8 (C) / 98.2 (F) Weight: 230 lbs 07/22/2013 Blood Pressure 1: 128/70 Code: 8480-6 He art Rate 1: 78 bpm 06/20/2013 Blood Pressure 1: 144/86 Code: 8480-6 BMI: 28.7 Code: 95059-2 Heart Rate 1: 92 bpm Height: 6'3" Respiratory Rate: 20 bpm Temperature: 36 .4 (C) / 97.6 (F) Weight: 230 lbs 11/25/2012 Blood Pressure 1: 128/80 Code: 8480-6 BMI: 27.5 Code: 21536-3 Heart Rate 1: 92 bpm Height: 6'3" Respiratory Rate: 20 bpm Temperature: 36 .8 (C) / 98.3 (F) Weight: 220 lbs 08/27/2012 Blood Pressure 1: 142/80 Code: 8480-6 BMI: 27.7 Code: 61320-1 Heart Rate 1: 76 bpm Height: 6'3" Respiratory Rate: 20 bpm Temperature: 36 .8 (C) / 98.3 (F) Weight: 222 lbs 05/11/2012 Blood Pressure 1: 136/80 Code: 8480-6 BMI: 27.7 Code: 94035-8 Heart Rate 1: 76 bpm Height: 6'3" Respiratory Rate: 20 bpm Temperature: 36 .8 (C) / 98.3 (F) Weight: 222 lbs 03/02/2012 Blood Pressure 1: 136/70 Code: 8480-6 BMI: 28.0 Code: 82975-7 Heart Rate 1: 80 bpm Height: 6'3" Respiratory Rate: 20 bpm Temperature: 36 .6 (C) / 97.8 (F) Weight: 224 lbs 12/11/2011 Blood Pressure 1: 142/80 Code: 8480-6 BMI: 27.1 Code: 65705-1 Heart Rate 1: 84 bpm Height: 6'3" Respiratory Rate: 20 bpm Temperature: 36 .9 (C) / 98.4 (F) Weight: 217 lbs 08/14/2011 Blood Pressure 1: 130/82 Code: 8480-6 He art Rate 1: 64 bpm 07/29/2011 Blood Pressure 1: 132/64 Code: 8480-6 BMI: 26.7 Code: 75182-3 Heart Rate 1: 72 bpm Height: 6'3" [...] 1: 142/88 Code: 8480-6 BMI: 26.4 Code: 20550-5 Heart Rate 1: 80 bpm Height: 6'3" [...] labs Encounters Encounter Performer Location Codes Date ([id number]) NURSE/OUTPATIENT VISIT EST Diagnosis: Type 2 diabetes mellitus without complications[ICD10: E11.9] Diagnosis: Essential (primary) hypertension[ICD10: I10] Diagnosis: Mixed hyperlipidemia[ICD10: E78.2] Najma OG [employer] [facility] CPT-4: 79288 05/24/2019 ([id number]) OFFICE/OUTPATIENT VISIT EST Diagnosis: Essential (primary) hypertension[ICD10: I10] Diagnosis: Type 2 diabetes mellitus without complications[ICD10: E11.9] Diagnosis: Mixed hyperlipidemia[ICD10: E78.2] Najma OG [employer] [facility] CPT-4: 54800 01/31/2019 ([id number]) NURSE/OUTPATIENT VISIT EST Diagnosis: Mixed hyperlipidemia[ICD10: E78.2] Diagnosis: Type 2 diabetes mellitus without complications[ICD10: E11.9] Diagnosis: Essential (primary) hypertension[ICD10: I10] Diagnosis: Chronic kidney disease, unspecified[ICD10: N18.9] Najma OG DO [facility] CPT-4: 04794 01/26/2019 ([id number]) NURSE/OUTPATIENT VISIT EST Diagnosis: Chronic kidney disease, unspecified[ICD10: N18.9] Diagnosis: Essential (primary) hypertension[ICD10: I10] Najma OG [employer] [facility] CPT-4: 32158 09/30/2018 ([id number]) OFFICE/OUTPATIENT VISIT EST Diagnosis: Essential (primary) hypertension[ICD10: I10] Diagnosis: Type 2 diabetes mellitus without complications[ICD10: E11.9] Diagnosis: Mixed hyperlipidemia[ICD10: E78.2] Diagnosis: Unspecified kidney failure[ICD10: N19] Najma HAQUE ADELA Matilda OG [employer] [facility] CPT-4: 46942 08/19/2018 ([id number]) NURSE/OUTPATIENT VISIT EST Diagnosis: Essential (primary) hypertension[ICD10: I10] Diagnosis: Type 1 diabetes mellitus with unspecified complications[ICD10: E10.8] Diagnosis: Mixed hyperlipidemia[ICD10: E78.2] Najma OG [employer] [facility] CPT-4: 62952 08/16/2018 ([id number]) OFFICE/OUTPATIENT VISIT EST Diagnosis: Essential (primary) hypertension[ICD10: I10] Diagnosis: Type 2 diabetes mellitus without complications[ICD10: E11.9] Diagnosis: Mixed hyperlipidemia[ICD10: E78.2] Najma OG [employer] CPT-4: 23833 05/10/2018 ([id number]) NURSE/OUTPATIENT VISIT EST Diagnosis: Essential (primary) hypertension[ICD10: I10] Diagnosis: Mixed hyperlipidemia[ICD10: E78.2] Diagnosis: Type 1 diabetes mellitus with unspecified complications[ICD10: E10.8] Najma OG DO [employer] CPT-4: 65455 05/05/2018 ([id number]) OFFICE/OUTPATIENT VISIT EST Diagnosis: Type 2 diabetes mellitus without complications[ICD10: E11.9] Diagnosis: Mixed hyperlipidemia[ICD10: E78.2] Diagnosis: Nicotine dependence, unspecified, uncomplicated[ICD10: F17.200] Diagnosis: Essential (primary) hypertension[ICD10: I10] Najma OG [employer] CPT-4: 40978 01/19/2018 ([id number]) NURSE/OUTPATIENT VISIT EST Diagnosis: Type 1 diabetes mellitus with unspecified complications[ICD10: E10.8] Diagnosis: Essential (primary) hypertension[ICD10: I10] Diagnosis: Male erectile disorder[ICD10: F52.21] Diagnosis: Encounter for screening for malignant neoplasm of prostate[ICD10: Z12.5] Najma OG [employer] CPT-4: 18743 01/13/2018 ([id number]) OFFICE/OUTPATIENT VISIT EST Diagnosis: Type 2 diabetes mellitus without complications[ICD10: E11.9] Diagnosis: Essential (primary) hypertension[ICD10: I10] Diagnosis: Mixed hyperlipidemia[ICD10: E78.2] Najma OG [employer] CPT-4: 62648 10/15/2017 ([id number]) NURSE/OUTPATIENT VISIT EST Diagnosis: Type 2 diabetes mellitus without complications[ICD10: E11.9] Diagnosis: Mixed hyperlipidemia[ICD10: E78.2] Diagnosis: Essential (primary) hypertension[ICD10: I10] Diagnosis: Glossitis[ICD10: K14.0] Najma THAKKAR [employer] CPT-4: 47078 10/06/2017 ([id number]) OFFICE/OUTPATIENT VISIT EST Diagnosis: Type 2 diabetes mellitus without complications[ICD10: E11.9] Diagnosis: Mixed hyperlipidemia[ICD10: E78.2] Diagnosis: Essential (primary) hypertension[ICD10: I10] Najma OG [employer] CPT-4: 26709 03/11/2017 ([id number]) OFFICE/OUTPATIENT VISIT EST Diagnosis: Type 1 diabetes mellitus with unspecified complications[ICD10: E10.8] Diagnosis: Mixed hyperlipidemia[ICD10: E78.2] Diagnosis: Essential (primary) hypertension[ICD10: I10] Diagnosis: Other fatigue[ICD10: R53.83] Najma OG [employer] CPT-4: 08263 03/05/2017 ([id number]) OFFICE/OUTPATIENT VISIT EST Diagnosis: Type 2 diabetes mellitus without complications[ICD10: E11.9] Diagnosis: Mixed hyperlipidemia[ICD10: E78.2] Diagnosis: Essential (primary) hypertension[ICD10: I10] Diagnosis: Nicotine dependence, unspecified, uncomplicated[ICD10: F17.200] Najma OG [employer] CPT-4: 09698 07/09/2016 ([id number]) OFFICE/OUTPATIENT VISIT EST Diagnosis: Type 1 diabetes mellitus with unspecified complications[ICD10: E10.8] Diagnosis: Mixed hyperlipidemia[ICD10: E78.2] Diagnosis: Essential (primary) hypertension[ICD10: I10] Najma OG [employer] CPT-4: 01971 06/16/2016 ([id number]) OFFICE/OUTPATIENT VISIT EST Diagnosis: Type 2 diabetes mellitus without complications[ICD10: E11.9] Diagnosis: Mixed hyperlipidemia[ICD10: E78.2] Diagnosis: Essential (primary) hypertension[ICD10: I10] Najma OG [employer] CPT-4: 26456 03/10/2016 ([id number]) OFFICE/OUTPATIENT VISIT EST Diagnosis: Type 1 diabetes mellitus with unspecified complications[ICD10: E10.8] Diagnosis: Mixed hyperlipidemia[ICD10: E78.2] Diagnosis: Essential (primary) hypertension[ICD10: I10] Najma OG [employer] [facility] CPT-4: 39393 03/06/2016 ([id number]) OFFICE/OUTPATIENT VISIT EST Diagnosis: Bitten or stung by nonvenomous insect and other nonvenomous arthropods, subsequent encounter[ICD10: W57.XXXD] Diagnosis: Insect bite (nonvenomous), right thigh, subsequent encounter[ICD10: S70.361D] Barbara Brower NAJMA Matilda LONG [employer] [facility] CPT-4: 74490 11/2015 ([id number]) OFFICE/OUTPATIENT VISIT EST Diagnosis: Bitten or stung by nonvenomous insect and other nonvenomous arthropods, initial encounter[ICD10: W57.XXXA] Diagnosis: Insect bite (nonvenomous), right thigh, initial encounter[ICD10: S70.361A] Barbara Brower NAJMA AmeenaMatilde MERCEDES [employer] [facility] CPT-4: 79225 09/2015 ([id number]) OFFICE/OUTPATIENT VISIT EST Diagnosis: Mixed hyperlipidemia[ICD10: E78.2] Diagnosis: Essential (primary) hypertension[ICD10: I10] Diagnosis: Type 2 diabetes mellitus without complications[ICD10: E11.9] Diagnosis: Encounter for immunization[ICD10: Z23] Diagnosis: Encounter for screening for malignant neoplasm of colon[ICD10: Z12.11] Diagnosis: Abnormal weight gain[ICD10: R63.5] Barbara Brower ANUM GODINEZ Matilda LONG [employer] [facility] CPT-4: 97514 09/06/2015 ([id number]) OFFICE/OUTPATIENT VISIT EST Diagnosis: Type 2 diabetes mellitus without complications[ICD10: E11.9] Diagnosis: Mixed hyperlipidemia[ICD10: E78.2] Diagnosis: Essential (primary) hypertension[ICD10: I10] Diagnosis: Encounter for screening for malignant neoplasm of prostate[ICD10: Z12.5] Diagnosis: Other fatigue[ICD10: R53.83] Najma MCARTHUR AmeenaMatilde MERCEDES [employer] [facility] CPT-4: 16160 08/31/2015 OFFICE/OUTPATIENT VISIT EST Diagnosis: Diarrhea, unspecified[ICD10: R19.7] Henrietta MCCOY [employer] [facility] CPT-4: 21470 06/29/2015 OFFICE/OUTPATIENT VISIT EST Diagnosis: PNEUMOCOCCAL VACCINE[ICD10: Z23] Diagnosis: FLU VACCINE[ICD10: Z23] Diagnosis: Essential (primary) hypertension[ICD10: I10] Diagnosis: Mixed hyperlipidemia[ICD10: E78.2] Diagnosis: Type 1 diabetes mellitus with unspecified complications[ICD10: E10.8] Diagnosis: Actinic keratosis[ICD10: L57.0] Najma MANUELLINE Matilda OG [employer] [facility] CPT-4: 09637 01/17/2015 ([id number]) OFFICE/OUTPATIENT VISIT EST Diagnosis: Type 2 diabetes mellitus without complications[ICD10: E11.9] Diagnosis: Impaired fasting glucose[ICD10: R73.01] Diagnosis: Mixed hyperlipidemia[ICD10: E78.2] Diagnosis: Essential (primary) hypertension[ICD10: I10] Najma Heverlane NAJMA Matilda OG [employer] CPT-4: 46367 01/12/2015 ([id number]) OFFICE/OUTPATIENT VISIT EST Diagnosis: - I - HYPERLIPIDEMIA NEC/NOS[ICD9: 272.4] Diagnosis: HYPERTENSION[ICD9: 401.9] Diagnosis: DM W/O COMPLICATION TYPE II[ICD9: 250.00] Diagnosis: ACTINIC KERATOSIS[ICD9: 702.0] Najma Heverlane MCARTHUR Ameena Clayton [employer] CPT-4: 11782 09/19/2014 ([id number]) OFFICE/OUTPATIENT VISIT EST Diagnosis: HYPERLIPIDEMIA NEC/NOS[ICD9: 272.4] Diagnosis: HYPERTENSION[ICD9: 401.9] Diagnosis: IMPAIRED FASTING GLUCOSE[ICD9: 790.21] Diagnosis: MALAISE AND FATIGUE[ICD9: 780.79] Najma Jenkins Matilda [email or web address] CPT-4: 05170 08/15/2014 ([id number]) OFFICE/OUTPATIENT VISIT EST Diagnosis: HYPERLIPIDEMIA NEC/NOS[ICD9: 272.4] Diagnosis: HYPERTENSION[ICD9: 401.9] Diagnosis: IMPAIRED FASTING GLUCOSE[ICD9: 790.21] Najma CHAPMAN Matilda [employer] CPT-4: 59841 12/14/2013 ([id number]) OFFICE/OUTPATIENT VISIT EST Diagnosis: Post herpetic neuralgia[ICD9: 053.19] Najma Kathleenpepperbijan OG [employer] [facility] CPT-4: 69680 10/17/2013 OFFICE/OUTPATIENT VISIT EST Diagnosis: Shingles[ICD9: 053.9] Diagnosis: Post herpetic neuralgia[ICD9: 053.19] [facility] 674[facility] 09/23/2013 ([id number]) OFFICE/OUTPATIENT VISIT EST Diagnosis: HYPERTENSION[ICD9: 401.9] Diagnosis: HYPERLIPIDEMIA NEC/NOS[ICD9: 272.4] Diagnosis: IMPAIRED FASTING GLUCOSE[ICD9: 790.21] [facility]pperbijan [facility] 67952 06/20/2013 ([id number]) OFFICE/OUTPATIENT VISIT EST Diagnosis: HYPERLIPIDEMIA NEC/NOS[ICD9: 272.4] Diagnosis: MALAISE AND FATIGUE[ICD9: 780.79] Diagnosis: ROUTINE MEDICAL EXAM[ICD9: V70.0] Diagnosis: HYPERTENSION[ICD9: 401.9] Diagnosis: IMPAIRED FASTING GLUCOSE[ICD9: 790.21] Najma Heverpepperbijan ABBOTTQ ADELA LONG [employer] [facility] CPT-4: 99391 06/08/2013 ([id number]) OFFICE/OUTPATIENT VISIT EST Diagnosis: HYPERLIPIDEMIA NEC/NOS[ICD9: 272.4] Diagnosis: HYPERTENSION[ICD9: 401.9] Diagnosis: IMPAIRED FASTING GLUCOSE[ICD9: 790.21] Diagnosis: DIARRHEA[ICD9: 787.91] Najma MCARTHUR AmeenaMatilde BRITTNI Stallings [employer] [facility] CPT-4: 31209 11/25/2012 ([id number]) OFFICE/OUTPATIENT VISIT EST Diagnosis: HYPERLIPIDEMIA NEC/NOS[ICD9: 272.4] Diagnosis: HYPERTENSION[ICD9: 401.9] Diagnosis: IMPAIRED FASTING GLUCOSE[ICD9: 790.21] Diagnosis: MALAISE AND FATIGUE[ICD9: 780.79] Najma Jenkins Matilda LONG [employer] [facility] CPT-4: 23484 11/11/2012 OFFICE/OUTPATIENT VISIT EST Diagnosis: Fungal dermatitis[ICD9: 111.9] Diagnosis: Dry skin dermatitis[ICD9: 692.89] Henrietta Sow-Fernandez FILI OG DO [facility] CPT-4: 14536 08/27/2012 ([id number]) OFFICE/OUTPATIENT VISIT EST Diagnosis: HYPERTENSION[ICD9: 401.9] Diagnosis: HYPERLIPIDEMIA NEC/NOS[ICD9: 272.4] Najma OG DO [facility] CPT-4: 41784 05/11/2012 ([id number]) OFFICE/OUTPATIENT VISIT EST Diagnosis: HYPERLIPIDEMIA NEC/NOS[ICD9: 272.4] Diagnosis: HYPERTENSION[ICD9: 401.9] Diagnosis: ROUTINE MEDICAL EXAM[ICD9: V70.0] Najma OG DO [facility] CPT-4: 00319 05/04/2012 ([id number]) OFFICE/OUTPATIENT VISIT EST Diagnosis: HYPERTENSION[ICD9: 401.9] Diagnosis: HYPERLIPIDEMIA NEC/NOS[ICD9: 272.4] Diagnosis: IMPAIRED FASTING GLUCOSE[ICD9: 790.21] Najma OG DO [facility] CPT-4: 51479 12/11/2011 ([id number]) OFFICE/OUTPATIENT VISIT EST Diagnosis: HYPERLIPIDEMIA NEC/NOS[ICD9: 272.4] Diagnosis: HYPERTENSION[ICD9: 401.9] Diagnosis: IMPAIRED FASTING GLUCOSE[ICD9: 790.21] Najma OG DO [facility] CPT-4: 14064 10/29/2011 ([id number]) OFFICE/OUTPATIENT VISIT EST Diagnosis: HYPERTENSION[ICD9: 401.9] Najma PAYAN DO [facility] CPT-4: 48821 08/14/2011 ([id number]) OFFICE/OUTPATIENT VISIT EST Diagnosis: HYPERTENSION[ICD9: 401.9] Diagnosis: IMPAIRED FASTING GLUCOSE[ICD9: 790.21] Najma KATHLEENNDBIJAN WADE [facility] CPT-4: 88576 07/29/2011 ([id number]) OFFICE/OUTPATIENT VISIT EST Diagnosis: HYPERTENSION[ICD9: 401.9] Najma ZARATER [facility] CPT-4: 47128 07/23/2011 ([id number]) OFFICE/OUTPATIENT VISIT EST Diagnosis: HYPERTENSION[ICD9: 401.9] Najma KATHLEEN NDER DO [facility] CPT-4: 63120 06/24/2011 OFFICE/OUTPATIENT VISIT EST Diagnosis: HYPERTENSION[ICD9: 401.9] Najma KATHLEEN NDER DO [facility] CPT-4: 91102 05/20/2011 OFFICE/OUTPATIENT VISIT EST Diagnosis: HYPERTENSION[ICD9: 401.9] Najma KATHLEEN NDER DO [facility] CPT-4: 16551 04/15/2011 OFFICE/OUTPATIENT VISIT EST Diagnosis: HYPERLIPIDEMIA NEC/NOS[ICD9: 272.4] Diagnosis: IMPAIRED FASTING GLUCOSE[ICD9: 790.21] Najma KATHLEENNDER [facility] CPT-4: 76392 03/18/2011 ([id number]) OFFICE/OUTPATIENT VISIT EST Najma LONGER [facility] CPT-4: 38838 07/30/2010 ([id number]) PREV VISIT, EST, AGE 40-64 Najma OG DO [facility] CPT-4: 35446 04/24/2010 Plan of Care Planned Activity Notes [...] : E78.2 01/31/2019 Appointment: Najma Og WPtel: [address] [place], [place] [phone] [place] FOLLOW UP 01/31/2019 Appointment: [facility] [address] [facility] [facility] 01/26/2019 Appointment: Najma Og WPtel: [address] [place], [place] [phone] US LAB 09/30/2018 Visit Diagnosis Plan: Unspecified [...] : E11.9 08/19/2018 Appointment: Najma Og WPtel: [address] [place] [address] [place] FOLLOW UP 08/19/2018 Appointment: Najma Og WPtel: [address] [place] [address] US LAB 08/16/2018 Visit Diagnosis Plan: Essential [...] : E78.2 05/10/2018 Appointment: Najma Og WPtel: [address] [place], [place] [phone] [place] FOLLOW UP 05/10/2018 Patient Education: Low Back Pain Exercises: Illustration Completed 05/10/2018 Patient Education: Low Back Pain Exercises Completed 05/10/2018 Appointment: Najma Og WPtel: [address] [place], [place] [phone] [place] LAB 05/05/2018 Visit Diagnosis Plan: Type [...] : E78.2 01/19/2018 Appointment: Najma Og WPtel: [address] [place] [address] FOLLOW UP 01/19/2018 Patient Education: Patient Medication Summary Completed 01/19/2018 Appointment: Najma Og WPtel: [address] [place], [place] [phone] [place] LAB 01/13/2018 Patient Education: Patient Medication [...] : I10 10/15/2017 Appointment: Najma Og WPtel: [address] [place], [place] [phone] [place] FOLLOW UP 10/15/2017 Patient Education: Patient Medication Summary Completed 10/15/2017 Appointment: Najma Og WPtel: [address] [place], [place] [phone] US LAB 10/06/2017 Patient Education: Patient Medication Summary Completed 10/06/2017 Visit Diagnosis Plan: Actinic keratosis Discussion: Cr yotherapy as above ICD-9 : 702.0 ICD-10 : L57.0 04/23/2017 Appointment: Najma Og WPtel: [address] [place], [place] [phone] OFFICE SURGERY 04/23/2017 Patient Education: Patient Medication [...] : E78.2 03/11/2017 Appointment: Najma Og WPtel: [address] [place], [place] [phone] [place] FOLLOW UP 03/11/2017 Patient Education: Patient Medication Summary Completed 03/11/2017 Appointment: Najma Og WPtel: [address] [place], [place] [phone] [place] LAB 03/05/2017 Patient Education: Patient Medication [...] : F17.200 07/09/2016 Appointment: Najma Og WPtel: [address] [place], [place] [phone] [place] 07/08 lm ~sl 4/ confirmed~sl FOLLOW UP 08/2016 Patient Education: Patient Medication Summary Completed 07/09/2016 Appointment: Najma Og WPtel: [address] [place], [place] [phone] [place] LAB 06/16/2016 Patient Education: Patient Medication Summary Completed 06/16/2016 Visit Plan: Lab discussed Accuchecks maribel ly Lifestyle change for 3mos then check CMP, HbA1C in 3mos Has had flu and pneumonia shot 03/10/2016 Appointment: Najma Og WPtel: [address] [place], [place] [phone] 03/06 confirmed `sl FOLLOW UP 03/10/2016 Patient Education: Patient Medication Summary Completed 03/10/2016 Appointment: Najma Og WPtel: [address] [place], [place] [phone] LAB 03/06/2016 Patient Education: Patient Medication Summary Completed 03/06/2016 Referral: Donavon Keller WPtel: [address] [place] [address] [employer]elt[employer] [id number] Referral Completed 10/22/2015 Visit Plan: Tick bite area looks much be tter Continue current rxs and close monitoring Follow up if any new symptoms or worsening appearance 09/12/2015 Appointment: Barbara Brower [address] [place], [place] [phone] 09/10 confirmed~sl FOLLOW UP 09/12/2015 Patient Education: Patient Medication Summary Completed 09/12/2015 Visit Plan: Cover as above 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 topical steroids to calm down the inflammation(suspect most of redness is due to histamine response vs infection) Monitor closely Follow up in 2 days to recheck 09/10/2015 Appointment: Barbara Brower [address] [place] [address] ACUTE ILLNESS 09/10/2015 Patient Education: Patient Medication [...] shingles vaccine 09/06/2015 Appointment: Barbara Brower [address] [facility] FOLLOW UP 09/06/2015 Patient Education: Patient Medication Summary Completed 09/06/2015 Care Plan: Referral Order SNOMED-CT : [id number] Pending 09/06/2015 Appointment: Najma Og WPtel: [address] [place], [place] [phone] [place] LAB 08/31/2015 Patient Education: Patient Medication Summary Completed 08/31/2015 Visit Plan: Offered aggressive (KUB, IV fluids, Labs) vs. conservative (oral hydration, treat symptoms, watchful waiting). Elects for conservative + labs. CBC & CMP at [facility] Discussed needed oral hydration (preferably with sports drinks), 24 hour clear liquid followed by BRAT diet and advance as tolerated Discussed s/s of worsening, go to UC/ER. 06/29/2015 Appointment: Henrietta Lubin WPtel: [address] [place], [place] [phone] ACUTE ILLNESS 06/29/2015 Patient Education: Patient Medication Summary Completed 06/29/2015 Visit Plan: Lab discussed Will keep meds the same Discussed diet/exercise at length Cryotherapy as above to AKs of arms Flu and Prevnar 13 given Trial of revatio per patient request for ED--warned of no nitrates Recheck 4mos 01/17/2015 Appointment: Najma Og WPtel: [address] [place], [place] [phone] [place] 01/16 confirmed~sl FOLLOW UP 01/17/2015 Patient Education: Patient Medication Summary Completed 01/17/2015 Appointment: Najma Og WPtel: [address] [place], [place] [phone] [place] LAB 01/12/2015 Patient Education: Patient Medication Summary Completed 01/12/2015 Visit Plan: Lab discussed Start accuchec ks daily Cryotherapy as above 09/19/2014 Appointment: Najma Og WPtel: [address] 09/18 confirmed -mf FOLLOW UP 09/19/2014 Patient Education: Patient Medication Summary Completed 09/19/2014 Appointment: Najma Og WPtel: [address] [place], [place] [phone] [place] LAB 08/15/2014 Patient Education: Patient Medication Summary Completed 08/15/2014 Appointment: Najma Og WPtel: [address] [place] [address] ACUTE ILLNESS 12/14/2013 Patient Education: Patient Medication Summary Completed 12/14/2013 Visit Plan: Patient using tylenol prn pa in Discussed possible shingles shot for booster in 9-12mos 10/17/2013 Appointment: Najma Og WPtel: [address] [place] [address] FOLLOW UP 10/17/2013 Patient Education: Patient Medication Summary Completed 10/17/2013 Appointment: Jeanie Briceño WPtel: [address] [place] [address] ACUTE ILLNESS 09/23/2013 Patient Education: Patient Medication Summary Completed 09/23/2013 Appointment: Najma Og WPtel: [address] [place] [address] BP CHECK 07/22/2013 Patient Education: Patient Medication Summary Completed 07/22/2013 Visit Plan: Lab discussed Discussed swit arun amlodopine to beta slim to see if helps with tremor BP check in 1mo 06/20/2013 Appointment: Najma Og WPtel: [address] [place] [address] 06/17 no answer FOLLOW UP 06/20/2013 Patient Education: Patient Medication Summary Completed 06/20/2013 Appointment: Najma Og WPtel: [address] [place], [place] [phone] [place] LAB 06/08/2013 Patient Education: Patient Medication Summary Completed 06/08/2013 Visit Plan: BRAT diet and yogurt and gat orade Lab discussed Continue current meds Spot checks on BS 11/25/2012 Appointment: Najma Og WPtel: [address] [place], [place] [phone] 11/24 FOLLOW UP 11/25/2012 Patient Education: Patient Medication Summary Completed 11/25/2012 Appointment: Najma Og WPtel: [address] [place], [place] [phone] LAB 11/11/2012 Patient Education: Patient Medication Summary Completed 11/11/2012 Appointment: Henrietta Lubin WPtel: [address] [place], [place] [phone] WORK IN 08/27/2012 Patient Education: Patient Medication Summary Completed 08/27/2012 Visit Plan: Pt going to get new home BP moniter Continue crestor and restart fish oil and will check fasting lab in 6mos Lab results discussed 05/11/2012 Appointment: Najma Og WPtel: [address] [place] [phone] 05/10 FOLLOW UP 05/11/2012 Patient Education: Patient Medication Summary Completed 05/11/2012 Appointment: Najma Og WPtel: [address] [place] [phone] LAB 05/04/2012 Patient Education: Patient Medication Summary Completed 05/04/2012 Visit Plan: 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 and forehead 03/02/2012 Appointment: Najma Og WPtel: [address] [place], [place] [id number] 03/01 OFFICE SURGERY 03/02/2012 Patient Education: Patient Medication Summary Completed 03/02/2012 Visit Plan: Labs discussed--recheck lab end of Nov/ of Mar Continue current meds and continue to moniter BS daily and BP 1-2 times a week Plan on cryotherapy this fall so can wear longsleeves after procedure See urology 12/11/2011 Appointment: Najma Og WPtel: [address] [place], [place] [phone] [place] FOLLOW UP 12/11/2011 Patient Education: Patient Medication Summary Completed 12/11/2011 Appointment: Najma Og WPtel: [address] [place], [place] [phone] 10/29/2011 Patient Education: Patient Medication Summary Completed 10/29/2011 Appointment: Najma Og WPtel: [address] [place], [place] [id number] BP CHECK 08/14/2011 Patient Education: Patient Medication Summary Completed 08/14/2011 Appointment: Najma Og WPtel: [address] [place] [address] ACUTE ILLNESS 07/29/2011 Patient Education: Patient Medication Summary Completed 07/29/2011 Appointment: Najma Og WPtel: [address] [place] [address] BP CHECK 07/23/2011 Patient Education: Patient Medication Summary Completed 07/23/2011 Appointment: Najma Og WPtel: [address] [place] [address] BP CHECK 06/24/2011 Patient Education: Patient Medication Summary Completed 06/24/2011 Appointment: Najma Og WPtel: [address] [place] [address] BP CHECK 05/20/2011 Patient Education: Patient Medication Summary Completed 05/20/2011 Appointment: Najma Og WPtel: [address] [place] [address] [place] BP CHECK 04/29/2011 Patient Education: Patient Medication Summary Completed 04/29/2011 Appointment: Najma Og WPtel: [address] [place] [address] BP CHECK 04/15/2011 Patient Education: Patient Medication Summary Completed 04/15/2011 Visit Plan: Continue current meds Add fi sh oil 1gm daily Glucometer given to use for accuchecks prn 03/18/2011 Appointment: Najma Ogtel: [address] [place], [place] [phone] FOLLOW UP 03/18/2011 Patient Education: Patient Medication Summary Completed 03/18/2011 Appointment: Najma Og WPtel: [address] [place], [place] [phone] [place] LAB 03/14/2011 Patient Education: Patient Medication Summary Completed 03/14/2011 Appointment: Najma Og WPtel: [address] [place], [place] [phone] [place] LAB 11/11/2010 Appointment: Najma Og WPtel: [address] [place], [place] [phone] [place] UA 11/11/2010 Patient Education: Patient Medication Summary Completed 11/11/2010 Appointment: Najma Og WPtel: [address] [place], [place] [phone] [place] LAB 10/29/2010 Patient Education: Patient Medication Summary Completed 10/29/2010 Appointment: Najma Og WPtel: [address] [place], [place] [phone] [place] FOLLOW UP 07/30/2010 Patient Education: Patient Medication Summary Completed 07/30/2010 Appointment: Najma Og WPtel: [address] [place], [place] [phone] [place] LAB 07/23/2010 Patient Education: Patient Medication Summary Completed 07/23/2010 Appointment: Najma Ogtel: [address] [place], [place] [phone] [place] LAB 04/26/2010 Patient Education: Patient Medication Summary Completed 04/26/2010 Visit Plan: Add PSA to lab Restart Crest or at 10mg daily Trial of Wellbutrin to aid in smoking cessation Check Lipids and LFTs in 3mos 04/24/2010 [facility]ment[phone] [id number] FOLLOW UP 04/24/2010 Patient Education: Patient Medication Summary Completed 04/24/2010 [facility]ment: [facility] [facility] [id number] [facility] LAB 04/19/2010 Patient Education: Patient Medication Summary Completed 04/19/2010 Referral: Donavon Keller WPtel: [facility] [place] [id number] [place] Referral Completed Instructions Comment . Lab [...] conservative + labs. CBC & CMP at [facility] Discussed needed oral hydration (preferably with [...]
--- OUTSIDE RECORDS SUMMARY | 2019-10-14 22:54 | XMS REPORT | CCD ---
Author Author Inocente Og D.O. Organization [facility] Address [address] [place] [address] Phone Care Team Providers Care [employer] Name Role Phone Najma Og D.O. PP Unavailable CCM Unavailable Summary Purpose Interface Exchange Insurance Providers Payer name Policy type / Coverage type Covered libertarian ID Effective Begin Date Effective End Date [employer] MEDICARE Medicare Part B [id number] Unknown [facility] Medicare Part B [id number] Un known Family history Father Diagnosis Age At Onset Diabetes mellitus Type 2 Unknown Myocardial infarction Unknown Brother Diagnosis Age At Onset Diabetes mellitus Type 2 Unknown Mother Diagnosis Age At Onset Osteoarthritis Unknown Cerebrovascular disease Unknown Social History Social History Element Codes Description Effective Dates Tobacco history SNOMED CT: 574010128 Never smoker 12/21/2014 Marital status Unknown 07/30/2010 [...] Instructions fenofibrate micronized 134 mg capsule RxNorm: 788344 1 Capsule(s) Oral QD for triglycerides 04/14/2019 07/13/2019 Active amlodipine 5 mg tablet RxNorm: 973201 TAKE 1 TABLET BY MOUTH ON CE DAILY 03/22/2019 06/19/2019 Active metformin ER 500 mg tablet,extended release 24 hr RxNorm: 86 0975 TAKE 1 TABLET BY MOUTH ONCE DAILY 03/15/2019 No Stop Date Active propranolol ER 80 mg capsule,24 hr,extended release RxNorm: 697323 TAKE 1 CAPSULE BY MOUTH ONCE DAILY 03/15/2019 No Stop Date Active amlodipine 5 mg tablet RxNorm: 619208 1 Tablet(s) PO QD 12/27/2018 Inactive fenofibrate micronized 134 mg capsule RxNorm: 181099 TA KE 1 CAPSULE BY MOUTH ONCE DAILY FOR TRIGLYCERIDES 10/11/2018 04/13/2019 Inactive amlodipine 5 mg tablet RxNorm: 133257 1 Tablet(s) PO QD 09/30/2018 Inactive metformin ER 500 mg tablet,extended release 24 hr RxNorm: 86 0975 TAKE 1 TABLET BY MOUTH ONCE DAILY 09/21/2018 03/14/2019 Inactive propranolol ER 80 mg capsule,24 hr,extended release RxNorm: 068029 TAKE 1 CAPSULE BY MOUTH ONCE DAILY 09/21/2018 03/14/2019 Inactive amlodipine 5 mg tablet RxNorm: 688541 1 Tablet(s) PO QD 08/25/2018 Inactive amlodipine 5 mg tablet RxNorm: 015285 1 Tablet(s) PO QD 08/25/2018 Inactive lisinopril 40 mg tablet RxNorm: 162067 TAKE 1 TABLET BY MOUTH O NCE DAILY 07/21/2018 08/24/2018 Inactive fenofibrate micronized 134 mg capsule RxNorm: 649920 TA KE 1 CAPSULE BY MOUTH ONCE DAILY FOR TRIGLYCERIDES 07/12/2018 10/10/2018 Inactive propranolol ER 80 mg capsule,24 hr,extended release RxNorm: 503661 TAKE 1 CAPSULE BY MOUTH ONCE DAILY 06/21/2018 09/20/2018 Inactive lisinopril 40 mg tablet RxNorm: 828823 TAKE 1 TABLET BY MOUTH O NCE DAILY 04/26/2018 07/20/2018 Inactive metformin ER 500 mg tablet,extended release 24 hr RxNorm: 801283 1 Tablet(s) QD 03/31/2018 09/20/2018 Inactive lisinopril 40 mg tablet RxNorm: 478895 TAKE 1 TABLET BY MOUTH O NCE DAILY 01/28/2018 04/25/2018 Inactive Vitamin D3 5,000 unit tablet RxNorm: 228293 1 Tablet(s) PO QD 01/1908/18/2018 Inactive fenofibrate micronized 134 mg capsule RxNorm: 427875 1 Capsule(s) PO QD for triglycerides 01/19/2018 07/11/2018 Inactive metformin ER 500 mg tablet,extended release 24 hr RxNorm: 184777 1 Tablet(s) QD 12/31/2017 03/30/2018 Inactive metformin ER 500 mg tablet,extended release 24 hr RxNorm: 388610 Tablet(s) 12/30/2017 12/30/2017 Inactive propranolol ER 80 mg capsule,24 hr,extended release RxNorm: 315771 1 Capsule(s) PO QD 12/17/2017 06/14/2018 Inactive metformin ER 500 mg tablet,extended release 24 hr RxNorm: 86 0975 1 Tablet(s) PO QD DUE FOR LABS AND APPT 12/02/2017 12/30/2017 Inactive Crestor 10 mg tablet RxNorm: 604758 TAKE ONE TABLET BY MOUTH ON CE DAILY 11/01/2017 01/18/2018 Inactive lisinopril 40 mg tablet RxNorm: 086801 TAKE ONE TABLET BY MOUTH ONCE DAILY [...] ER 80 mg capsule,24 hr,extended release RxNorm: 643689 1 Capsule(s) PO QD DUE FOR APPT 09/08/2017 12/17/2017 Inactive Crestor 10 mg tablet RxNorm: 187749 1 Tablet(s) PO QD T CHELSI ONE TABLET BY MOUTH DAILY 03/11/2017 09/06/2017 Inactive propranolol ER 80 mg capsule,24 hr,extended release RxNorm: 221156 1 Capsule(s) PO QD TAKE ONE CAPSULE BY MOUTH DAILY - REPLACES AMLODOPINE 03/11/2017 09/08/2017 Inactive metformin ER 500 mg tablet,extended release 24 hr RxNorm: 86 0975 1 Tablet(s) PO QD 03/11/2017 09/08/2017 Inactive lisinopril 40 mg tablet RxNorm: 593499 1 Tablet(s) PO QD 03/11/2017 0 09/06/2017 Inactive lisinopril 40 mg tablet RxNorm: 259158 1 Tablet(s) PO QD 02/16/2017 1 05/11/2016 Inactive metformin ER 500 mg tablet,extended release 24 hr RxNorm: 86 0975 1 Tablet(s) PO QD Due for labs and follow up before further refills 02/16/2017 017 Inactive propranolol ER 80 mg capsule,24 hr,extended release RxNorm: 194179 Capsule(s) TAKE ONE CAPSULE BY MOUTH DAILY - REPLACES AMLODOPINE 11/19/20162016 Inactive lisinopril 40 mg tablet RxNorm: 499295 1 Tablet(s) PO QD 11/17/2016 1 04/18/2016 Inactive metformin ER 500 mg tablet,extended release 24 hr RxNorm: 86 0975 1 Tablet(s) PO QD 11/17/2016 02/16/2017 Inactive lisinopril 40 mg tablet RxNorm: 297029 1 Tablet(s) PO Q D TAKE ONE TABLET BY MOUTH DAILY 08/19/2016 11/17/2016 Inactive metformin ER 500 mg tablet,extended release 24 hr RxNorm: 86 0975 Tablet(s) TAKE ONE TABLET BY MOUTH DAILY 08/19/2016 11/16/2016 Inactive propranolol ER 80 mg capsule,24 hr,extended release RxNorm: 058614 Capsule(s) TAKE ONE CAPSULE BY MOUTH DAILY - REPLACES AMLODOPINE 08/19/20162016 Inactive Crestor 10 mg tablet RxNorm: 531419 TAKE ONE TABLET BY MOUTH DAILY 06/16/2016 03/10/2017 Inactive lisinopril 40 mg tablet RxNorm: 282219 1 Tablet(s) PO Q D TAKE ONE TABLET BY MOUTH DAILY 05/23/2016 08/18/2016 Inactive metformin ER 500 mg tablet,extended release 24 hr RxNorm: 86 0975 TAKE ONE TABLET BY MOUTH DAILY 05/23/2016 08/19/2016 Inactive propranolol ER 80 mg capsule,24 hr,extended release RxNorm: 602939 TAKE ONE CAPSULE BY MOUTH DAILY - REPLACES AMLODOPINE 05/23/2016 08/19/2016 [place] [facility] Crestor 10 mg tablet RxNorm: 115408 TAKE ONE TABLET BY MOUTH DAILY 03/31/2016 06/15/2016 Inactive metformin ER 500 mg tablet,extended release 24 hr RxNorm: 86 0975 TAKE ONE TABLET BY MOUTH DAILY 02/19/2016 05/22/2016 Inactive propranolol ER 80 mg capsule,24 hr,extended release RxNorm: 621911 TAKE ONE CAPSULE BY MOUTH DAILY - REPLACES AMLODOPINE 11/23/2015 05/20/2016 [place] ct[facility] metformin ER 500 mg tablet,extended release 24 hr RxNorm: 86 0975 TAKE ONE TABLET BY MOUTH DAILY 11/08/2015 02/05/2016 Inactive Bactroban Nasal 2 % ointment RxNorm: 685504 Apply topic ally to affected area twice daily 09/10/2015 03/09/2016 Inactive Vibramycin 100 mg capsule RxNorm: 254719 1 Capsule(s) PO BID 201509/23/2015 Inactive lisinopril 40 mg tablet RxNorm: 827891 1 Tablet(s) PO Q D TAKE ONE TABLET BY MOUTH DAILY 08/27/2015 02/22/2016 Inactive metformin ER 500 mg tablet,extended release 24 hr RxNorm: 86 0975 TAKE ONE TABLET BY MOUTH DAILY 08/06/2015 11/03/2015 Inactive Levsin/SL 0.125 mg sublingual tablet RxNorm: 9839987 1 T ablet(s) SL Q4H as needed for stomach cramps 06/29/2015 07/03/2015 Inactive lisinopril 40 mg tablet RxNorm: 482400 Tablet(s) TAKE ONE TABLE T BY MOUTH DAILY 06/07/2015 08/26/2015 Inactive propranolol ER 80 mg capsule,24 hr,extended release RxNorm: 753748 TAKE ONE CAPSULE BY MOUTH DAILY - REPLACES AMLODOPINE 05/30/2015 11/22/2015 [place] [facility] metformin ER 500 mg tablet,extended release 24 hr RxNorm: 86 0975 1 Tablet(s) PO QD 05/10/2015 08/05/2015 Inactive Crestor 10 mg tablet RxNorm: 291707 TAKE ONE TABLET BY MOUTH DAILY 04/18/2015 10/14/2015 Inactive metformin ER 500 mg tablet,extended release 24 hr RxNorm: 86 0975 TAKE ONE TABLET BY MOUTH DAILY 02/07/2015 05/10/2015 Inactive sildenafil 20 mg tablet RxNorm: 396622 1 Tablet(s) PO QD 01/17/2015 1 04/17/2014 Inactive propranolol ER 80 mg capsule,24 hr,extended release RxNorm: 511522 1 Capsule(s) PO QD replaces amlodopine 11/28/2014 05/26/2015 Inactive [SALINASIN GS FOR UNINSURED PATIENTS -- BIN:[id number], PCN: [id number], Group: [id number], ID# [id number], Process claim through [employer], for questions: . THIS IS NOT INSURANCE.] lisinopril 40 mg tablet RxNorm: 570983 TAKE ONE TABLET BY MOUTH DAILY 11/16/2014 06/07/2015 Inactive lisinopril 40 mg tablet RxNorm: 259678 1 Tablet(s) PO QD 08/21/2014 0 11/15/2014 Inactive [AttnRPh: Saving apply/adjudicate RxGRP: [id number] RxBIN:[id number] RxPCN: ID#:[id number]] lisinopril 40 mg tablet RxNorm: 835456 1 Tablet(s) PO Q D NEEDS SEEN FOR APPOINTMENT 07/14/2014 08/21/2014 Inactive [AttnRPh: Saving apply/adjudicate RxGRP:SG20 RxBIN:[id number] RxPCN: ID#:[id number]] Crestor 10 mg tablet RxNorm: 625157 TAKE ONE TABLET BY MOUTH 07/06/2014 01/01/2015 Inactive metformin ER 500 mg tablet,extended release 24 hr RxNorm: 86 0975 1 Tablet(s) QD TAKE ONE TABLET BY MOUTH ONCE A DAY 06/09/2014 12/05/2014 Inactive propranolol ER 80 mg capsule,24 hr,extended release RxNorm: 128606 1 Capsule(s) PO QD replaces amlodopine 06/05/2014 11/28/2014 Inactive [PlatedIN GS FOR UNINSURED PATIENTS -- BIN:[id number], PCN: [id number], Group: [id number], ID# [id number], Process claim through [employer], for questions: . THIS IS NOT INSURANCE.] propranolol ER 80 mg capsule,24 hr,extended release RxNorm: 237469 1 Capsule(s) PO QD replaces amlodopine 03/07/2014 06/05/2014 Inactive [SAVIN GS FOR UNINSURED PATIENTS -- BIN:[id number], PCN: [id number], Group: [id number], ID# [id number], Process claim through [employer], for questions: . THIS IS NOT INSURANCE.] metformin ER 500 mg tablet,extended release 24 hr RxNorm: 86 0975 TAKE ONE TABLET BY MOUTH ONCE A DAY 12/15/2013 06/09/2014 Inactive propranolol ER 80 mg capsule,24 hr,extended release RxNorm: 716066 1 Capsule(s) PO QD replaces amlodopine 12/09/2013 03/07/2014 Inactive [NICOLAS FOR UNINSURED PATIENTS -- BIN:261732, PCN: [id number], Group: [id number], ID# [id number], Process claim through [employer], for questions: . THIS IS NOT INSURANCE.] acyclovir 800 mg tablet RxNorm: 869431 1 Tablet(s) PO QID 09/23/2013 09/29/2013 Inactive gabapentin 300 mg capsule RxNorm: 459779 1 Capsule(s) PO BID 201310/07/2013 Inactive metformin ER 500 mg tablet,extended release 24 hr RxNorm: 86 0975 1 Tablet(s) PO QD 09/19/2013 12/14/2013 Inactive propranolol ER 80 mg capsule,24 hr,extended release RxNorm: 538844 1 Capsule(s) PO QD replaces amlodopine 09/15/2013 12/09/2013 Inactive metformin ER 500 mg 24 hr tablet,extended release RxNorm: 86 0975 1 Tablet(s) PO QD 09/15/2013 09/18/2013 Inactive lisinopril 40 mg tablet RxNorm: 754908 1 Tablet(s) PO QD 07/19/2013 0 07/14/2014 Inactive Crestor 10 mg tablet RxNorm: 220429 Tablet(s) PO TAKE O NE TABLET BY MOUTH EVERY DAY 07/12/2013 07/05/2014 Inactive propranolol ER 80 mg capsule,24 hr,extended release RxNorm: 826798 1 Capsule(s) PO QD replaces amlodopine 06/20/2013 09/15/2013 Inactive triamcinolone acetonide 0.1 % topical ointment RxNorm: 31916 36 Application TOP BID 06/20/2013 06/26/2013 Inactive Crestor 10 mg tablet RxNorm: 602264 1 Tablet(s) PO QD 04/18/201310/2013 Inactive Viagra 100 mg tablet RxNorm: 361857 1 Tablet(s) PO as directed 01/0508/18/2018 Inactive TAKE ONE TABLET BY MOUTH DIRECTED Crestor 10 mg tablet RxNorm: 618273 1 Tablet(s) PO QD 01/17/201304/06 Inactive metformin ER 500 mg tablet,extended release 24 hr RxNorm: 86 0975 1 Tablet(s) PO QD TAKE ONE TABLET BY MOUTH EVERY DAY 12/23/2012 09/15/2013 Inactive triamcinolone acetonide 0.1 % topical ointment RxNorm: 52993 36 Application TOP BID 08/27/2012 09/02/2012 Inactive ketoconazole 2 % topical cream RxNorm: 063551 1 Application TOP QAM 08/27/2012 09/02/2012 Inactive lisinopril 40 mg tablet RxNorm: 439517 1 Tablet(s) PO QD 07/21/2012 0 07/15/2013 Inactive Crestor 10 mg tablet RxNorm: 054468 1 Tablet(s) PO QD 07/21/201210/04 Inactive amlodipine 10 mg tablet RxNorm: 331333 1 Tablet(s) PO QHS 07/21/2012 07/15/2013 Inactive metformin ER 500 mg tablet,extended release 24 hr RxNorm: 86 0977 Tablet(s) PO TAKE ONE TABLET BY MOUTH EVERY DAY 03/31/2012 12/22/2012 Inactive lisinopril 40 mg tablet RxNorm: 607248 1 Tablet(s) PO QD 07/29/2011 0 07/20/2012 Inactive amlodipine 10 mg tablet RxNorm: 740752 1 Tablet(s) PO QHS 07/29/2011 07/20/2012 Inactive amlodipine 10 mg Tab RxNorm: 055887 1 Tablet(s) PO QHS 07/29/2011 Inactive Viagra 100 mg tablet RxNorm: 023876 1 Tablet(s) PO as directed 07/0601/24/2013 Inactive TAKE ONE TABLET BY MOUTH DIRECTED Crestor 10 mg tablet RxNorm: 395292 1 Tablet(s) PO QD 07/29/201107/05 Inactive Norvasc 5 mg Tab RxNorm: 205183 1 Tablet(s) PO QD 07/16/2011 07/28/19 Inactive Norvasc 5 mg Tab RxNorm: 590089 1 Tablet(s) PO QD 06/26/2011 07/15/19 12 Inactive lisinopril 40 mg Tab RxNorm: 662754 1 Tablet(s) PO QD 05/13/201107/06 Inactive metformin ER 500 mg tablet,extended release 24 hr RxNorm: 86 0977 1 Tablet(s) PO QD 03/18/2011 07/28/2011 Inactive Crestor 10 mg Tab RxNorm: 128866 1 Tablet(s) PO QHS 01/27/20112011 Inactive metformin ER 500 mg 24 hr Tab RxNorm: 846095 1 Tablet(s) PO QD 11/0403/17/2011 Inactive Viagra 100 mg Tab RxNorm: 725145 Tablet(s) PO TAKE ON E TABLET BY MOUTH DIRECTED 08/26/2010 07/28/2011 Inactive metformin ER 500 mg 24 hr Tab RxNorm: 341991 1 Tablet(s) PO QD 07/0611/18/2010 Inactive Crestor 10 mg Tab RxNorm: 268290 1 Tablet(s) PO QHS 07/30/20102010 Inactive Crestor 10 mg Tab RxNorm: 616084 1 Tablet(s) PO QHS 05/20/20102010 Inactive Wellbutrin SR 150 mg Tab RxNorm: 448930 1 Tablet(s) PO QAM 04/24/19 11 07/22/2010 Inactive Multivitamin And Mineral tablet RxNorm: 1 Tablet(s) PO QD No Start Date Active FreeStyle Lite Strips RxNorm: 1 Unit Dose Miscel laneous AC & HS check blood sugar AC and HS No Start Date Active Co Q-10 200 mg capsule RxNorm: 739838 1 Capsule(s) PO QD No Start Date Active lancets RxNorm: 1 Milliliter(s) Miscellaneous AC & HS No Start Robert e Active Vitamin D3 4,000 unit capsule RxNorm: 3911128 1 Capsule(s) PO QD No Start Date 07/08/2016 Inactive Fish Oil 360 mg-1,200 mg capsule RxNorm: 221476 2 Capsule(s) PO QD No Start Date 01/30/2019 Inactive hydrocodone 5 mg-acetaminophen 325 mg tablet RxNorm: 559379 1 Tablet(s) PO Q4H as needed for severe pain No Start Date 12/30/2015 Inactive Xanax 0.25 mg tablet RxNorm: 257670 1/2 Tablet(s) PO PRN for se andrea stress No Start Date 07/08/2016 Inactive lisinopril 40 mg Tab RxNorm: 637786 1 Tablet(s) PO QD No Start Date 0 05/12/2011 Inactive Fish Oil 1,000 mg capsule RxNorm: 1 Capsule(s) PO QD No Start Date 09/18/2014 Inactive naproxen 500 mg Tab RxNorm: 515685 1 Tablet(s) PO BID No Start Date 0 07/28/2011 Inactive aspirin 81 mg tablet RxNorm: 799048 1 Tablet(s) PO QD No Start Date 0 05/09/2018 Inactive Crestor 10 mg Tab RxNorm: 755480 1 Tablet(s) PO QD No Start Date 07/06 Inactive Crestor 5 mg tablet RxNorm: 225986 1 Tablet(s) PO QD No Start Date Inactive Fish Oil Oral RxNorm: Oral No Start Date 09/18/2014 Inactive Viagra 100 mg Tab RxNorm: 211287 1 Tablet(s) PO as directed No Star [...] Result Date S ervice Location MEAN GLUC 7625980 Calc Mean Gluc 140 mg/dL 01/26/2019 Unkn own GLYCOSYLATED HEMOGLOBIN TEST 42953 Hgb A1c 37404-6 6.5 % 1 Unknown COMPREHENSIVE METABOLIC 50775 AST 17 U/L 2018 Unknown COMPREHENSIVE METABOLIC 19597 ALT 19 U/L 2018 Unknown COMPREHENSIVE METABOLIC 76966 BUN 19 mg/dL 2018 Unknown COMPREHENSIVE METABOLIC 01690 ALBUMIN 4.3 g/dL 2018 Unknown COMPREHENSIVE METABOLIC 31874 CHLORIDE 103 mmol/L 01/26 Unknown COMPREHENSIVE METABOLIC 90052 Bili Total 0.6 mg/dL 01/26 Unknown COMPREHENSIVE METABOLIC 91079 ALK PHOS 60 U/L 2018 Unknown COMPREHENSIVE METABOLIC 02840 SODIUM 140 mmol/L 01/26 Unknown COMPREHENSIVE METABOLIC 81409 CREATININE 1.21 mg/dL 01/05 Unknown COMPREHENSIVE METABOLIC 28200 CALCIUM 9.6 mg/dL 2018 Unknown COMPREHENSIVE METABOLIC 93013 POTASSIUM 4.5 mmol/L 01/26 Unknown COMPREHENSIVE METABOLIC 39116 Total Protein 6.7 g/dL Unknown COMPREHENSIVE METABOLIC 15212 Glucose 111 mg/dL 2018 Unknown COMPREHENSIVE METABOLIC 13271 Bicarbonate 28 mmol/L 01/05 Unknown COMPREHENSIVE METABOLIC 50688 AGAP 9 mmol/L 2018 Unknown COMPLETE BLOOD COUNT 0834493 WBC 10.7 10e9/L 019 Unknown COMPLETE BLOOD COUNT [id number] RBC 4.38 10e12/L 2018 Unknown COMPLETE BLOOD COUNT [id number] HEMOGLOBIN 13.7 g/dL 01/27/20 19 Unknown COMPLETE BLOOD COUNT [id number] HEMATOCRIT 42.0 % 01/27/20 19 Unknown COMPLETE BLOOD COUNT [id number] MCV 95.9 fL 9 Unknown COMPLETE BLOOD COUNT [id number] MCH 31.3 pg 9 Unknown COMPLETE BLOOD COUNT 1748439 MCHC 32.6 g/dL 9 Unknown COMPLETE BLOOD COUNT [id number] PLATELET COUNT 232 10e9/L Unknown COMPLETE BLOOD COUNT 1792071 Mean Plt Volume 11.4 fL Unknown COMPLETE BLOOD COUNT 3528169 Neut Auto 68.7 % 9 Unknown COMPLETE BLOOD COUNT 4005681 Lymph Auto 21.2 % 01/27/20 19 Unknown COMPLETE BLOOD COUNT 8200226 Leake Auto 8.1 % 9 Unknown COMPLETE BLOOD COUNT 0355098 RDW 14.1 % 9 Unknown COMPLETE BLOOD COUNT 5456414 Eos Auto 1.8 % 9 Unknown COMPLETE BLOOD COUNT 6084839 Baso Auto 0.2 % 9 Unknown COMPLETE BLOOD COUNT [id number] Neutrophil Abs 7.35 10e9/L Unknown COMPLETE BLOOD COUNT [id number] Lymphocyte Abs 2.27 10e9/L Unknown COMPLETE BLOOD COUNT [id number] Monocyte Abs 0.87 10e9/L 01/05 Unknown COMPLETE BLOOD COUNT [id number] Eosinophil Abs 0.19 10e9/L Unknown COMPLETE BLOOD COUNT [id number] RDW-SD 47.7 fL 9 Unknown COMPLETE BLOOD COUNT [id number] Basophil Abs 0.02 10e9/L 01/05 Unknown GFR CALC [id number] GFR Non Afr Amr 59 mL/min 01/26/2019 Unk nown GFR CALC [id number] GFR Afr Amr >60 mL/min 01/26/2019 Unknow n LIPID GROUP 94993 Cholesterol 215 mg/dL 01/26/2019 Unkno wn LIPID GROUP 49148 Triglyceride 221 mg/dL 01/26/2019 Unkn own [facility] 32668 HDL CHOLESTEROL 41 mg/dL 01/26/2019 U nknown L[facility] GROUP 79684 Chol/HDL Ratio 5.24 ratio 01/26/2019 U nknown LIPID GROUP 62971 NON-HDL Chol 174 mg/dL 01/26/2019 Unkn own LIP[facility] GROUP 27800 LDL Cholesterol 130 mg/dL 01/26/2019 [place] [address] Glucose 104 mg/dL 09/30 [place] [address] CREATININE 1.18 mg/dL [place] [address] BUN 19 mg/dL 09/30 [place] [address] SODIUM 139 mmol/L 09/05 [place] [address] POTASSIUM 4.1 mmol/L 09/05 [place] [address] CHLORIDE 105 mmol/L 09/05 [place] [address] Bicarbonate 26 mmol/L [place] [address] AGAP 8 mmol/L 09/30 [place] [address] CALCIUM 9.3 mg/dL 09/30 Unknown GFR CALC [id number] GFR Non Afr Amr >60 mL/min 09/30/2018 Un known GFR CALC [id number] GFR Afr Amr >60 mL/min 09/30/2018 Unknow n MICROALBUMIN URINE RANDOM 46431 U Microalbumin <2.0 mg/L 08/19/2018 Unknown MICROALBUMIN URINE RANDOM 46677 U Creatinine 66 mg/dL 0 08/19/2018 Unknown MICROALBUMIN URINE RANDOM 95416 ALB/CR Ratio <3.0 mg/gCR 08/19/2018 Unknown COMPREHENSIVE METABOLIC 47526 AST 21 U/L 2018 Unknown COMPREHENSIVE METABOLIC 44970 ALT 20 U/L 2018 Unknown COMPREHENSIVE METABOLIC 84040 BUN 31 mg/dL 2018 Unknown COMPREHENSIVE METABOLIC 90098 ALBUMIN 4.4 g/dL 2018 Unknown COMPREHENSIVE METABOLIC 17903 CHLORIDE 105 mmol/L 08/16 Unknown COMPREHENSIVE METABOLIC 05622 Bili Total 0.5 mg/dL 08/16 Unknown COMPREHENSIVE METABOLIC 77352 ALK PHOS 40 U/L 2018 Unknown COMPREHENSIVE METABOLIC 28069 SODIUM 140 mmol/L 08/16 Unknown COMPREHENSIVE METABOLIC 94104 CREATININE 1.45 mg/dL 08/04 Unknown COMPREHENSIVE METABOLIC 93334 CALCIUM 9.8 mg/dL 2018 Unknown COMPREHENSIVE METABOLIC 91269 POTASSIUM 5.1 mmol/L 08/16 Unknown COMPREHENSIVE METABOLIC 50113 Total Protein 6.9 g/dL Unknown COMPREHENSIVE METABOLIC 24985 Glucose 110 mg/dL 2018 Unknown COMPREHENSIVE METABOLIC 17884 Bicarbonate 25 mmol/L 08/04 Unknown COMPREHENSIVE METABOLIC 82620 AGAP 10 mmol/L 2018 Unknown GFR CALC [id number] GFR Non Afr Amr 48 mL/min 08/16/2018 Unk nown GFR CALC [id number] GFR Afr Amr 58 mL/min 08/16/2018 Unknown GLYCOSYLATED HEMOGLOBIN TEST 46537 Hgb A1c 65742-9 5.9 % 0 08/16/2018 Unknown LIPID GROUP 37413 Cholesterol 226 mg/dL 08/16/2018 Unkno wn LIPID GROUP 23789 Triglyceride 335 mg/dL 08/16/2018 Unkn own LIPID GROUP 46372 HDL CHOLESTEROL 32 mg/dL 08/16/2018 U nknown LIPID GROUP 88513 Chol/HDL Ratio 7.06 ratio 08/16/2018 U nknown LIPID GROUP 73513 NON-HDL Chol 194 mg/dL 08/16/2018 Unkn own LIP[facility] GROUP 32931 LDL Cholesterol 127 mg/dL 08/16/2018 U nknown THYROID STIMULATING HORMONE 91317 TSH 2.475 uIU/mL 08/16/2018 Unknown COMPLETE BLOOD COUNT 9431608 WBC 7.5 10e9/L 08/17/19 19 Unknown COMPLETE BLOOD COUNT [id number] RBC 4.09 10e12/L 2018 Unknown COMPLETE BLOOD COUNT 5717005 HEMOGLOBIN 12.9 g/dL 08/17/19 19 Unknown COMPLETE BLOOD COUNT 4709087 HEMATOCRIT 40.0 % 08/17/19 19 Unknown COMPLETE BLOOD COUNT 3099575 MCV 97.8 fL 9 Unknown COMPLETE BLOOD COUNT 3980675 MCH 31.5 pg 9 Unknown COMPLETE BLOOD COUNT 6465110 MCHC 32.3 g/dL 9 Unknown COMPLETE BLOOD COUNT 6361940 PLATELET COUNT 258 10e9/L Unknown COMPLETE BLOOD COUNT 7347079 Mean Plt Volume 11.4 fL Unknown COMPLETE BLOOD COUNT 6570602 Neut Auto 62.9 % 9 Unknown COMPLETE BLOOD COUNT 7757890 Lymph Auto 27.3 % 08/17/19 19 Unknown COMPLETE BLOOD COUNT 0850184 Leake Auto 8.2 % 9 Unknown COMPLETE BLOOD COUNT 1303942 RDW 13.3 % 9 Unknown COMPLETE BLOOD COUNT 5018034 Eos Auto 1.5 % 9 Unknown COMPLETE BLOOD COUNT 1735417 Baso Auto 0.1 % 9 Unknown COMPLETE BLOOD COUNT [id number] Neutrophil Abs 4.72 10e9/L Unknown COMPLETE BLOOD COUNT 9349469 Lymphocyte Abs 2.05 10e9/L Unknown COMPLETE BLOOD COUNT [id number] Monocyte Abs 0.62 10e9/L 08/04 Unknown COMPLETE BLOOD COUNT 4821171 Eosinophil Abs 0.11 10e9/L Unknown COMPLETE BLOOD COUNT 3837254 RDW-SD 46.7 fL 9 Unknown COMPLETE BLOOD COUNT [id number] Basophil Abs 0.01 10e9/L 08/04 Unknown MEAN GLUC 7240503 Calc Mean Gluc 123 mg/dL 08/16/2018 Unkn own [facility] GROUP 22931 Cholesterol 212 mg/dL 05/05/2018 Unkno wn L[facility] 25411 Triglyceride 271 mg/dL 05/05/2018 Unkn own [facility] 55465 HDL CHOLESTEROL 38 mg/dL 05/05/2018 U nknown LIP[facility] GROUP 58629 Chol/HDL Ratio 5.58 ratio 05/05/2018 U nknown L[facility] GROUP 14963 NON-HDL Chol 174 mg/dL 05/05/2018 Unkn own [facility] GROUP 88324 LDL Cholesterol 120 mg/dL 05/05/2018 U nknown GFR CALC 5142047 GFR Non Afr Amr 49 mL/min 05/05/2018 Unk nown GFR CALC 7989600 GFR Afr Amr 59 mL/min 05/05/2018 Unknown GLYCOSYLATED HEMOGLOBIN TEST 14553 Hgb A1c 51405-7 6.0 % 0 05/05/2018 Unknown MEAN GLUC 0927792 Calc Mean Gluc 126 mg/dL 05/05/2018 Unkn own COMPREHENSIVE METABOLIC 98000 AST 18 U/L 2018 Unknown COMPREHENSIVE METABOLIC 26525 ALT 23 U/L 2018 Unknown COMPREHENSIVE METABOLIC 58138 BUN 30 mg/dL 2018 Unknown COMPREHENSIVE METABOLIC 82732 ALBUMIN 4.3 g/dL 2018 Unknown COMPREHENSIVE METABOLIC 44318 CHLORIDE 106 mmol/L 05/05 Unknown COMPREHENSIVE METABOLIC 71770 Bili Total 0.4 mg/dL 05/05 Unknown COMPREHENSIVE METABOLIC 09632 ALK PHOS 39 U/L 2018 Unknown COMPREHENSIVE METABOLIC 83292 SODIUM 139 mmol/L 05/05 Unknown COMPREHENSIVE METABOLIC 94745 CREATININE 1.44 mg/dL 04/08 Unknown COMPREHENSIVE METABOLIC 24417 CALCIUM 9.6 mg/dL 2018 Unknown COMPREHENSIVE METABOLIC 60948 POTASSIUM 4.7 mmol/L 05/05 Unknown COMPREHENSIVE METABOLIC 80464 Total Protein 6.6 g/dL Unknown COMPREHENSIVE METABOLIC 21322 Glucose 112 mg/dL 2018 Unknown COMPREHENSIVE METABOLIC 43579 Bicarbonate 28 mmol/L 04/08 Unknown COMPREHENSIVE METABOLIC 15848 AGAP 5 mmol/L 2018 Unknown THYROID STIMULATING HORMONE 77094 TSH 3.725 uIU/mL 05/05/2018 Unknown COMPLETE BLOOD COUNT 2166643 WBC 8.2 10e9/L 05/05/19 19 Unknown COMPLETE BLOOD COUNT [id number] RBC 4.02 10e12/L 2018 Unknown COMPLETE BLOOD COUNT [id number] HEMOGLOBIN 12.7 g/dL 05/05/19 19 Unknown COMPLETE BLOOD COUNT [id number] HEMATOCRIT 39.3 % 05/05/19 19 Unknown COMPLETE BLOOD COUNT [id number] MCV 97.8 fL 9 Unknown COMPLETE BLOOD COUNT [id number] MCH 31.6 pg 9 Unknown COMPLETE BLOOD COUNT [id number] MCHC 32.3 g/dL 9 Unknown COMPLETE BLOOD COUNT [id number] PLATELET COUNT 213 10e9/L Unknown COMPLETE BLOOD COUNT 1109127 Mean Plt Volume 11.7 fL Unknown COMPLETE BLOOD COUNT [id number] Neut Auto 55.7 % 9 Unknown COMPLETE BLOOD COUNT [id number] Lymph Auto 33.2 % 05/05/19 19 Unknown COMPLETE BLOOD COUNT [id number] [place] Auto 8.5 % 9 Unknown COMPLETE BLOOD COUNT [id number] RDW 13.9 % 9 Unknown COMPLETE BLOOD COUNT [id number] Eos Auto 2.4 % 9 Unknown COMPLETE BLOOD COUNT [id number] Baso Auto 0.2 % 9 Unknown COMPLETE BLOOD COUNT [id number] Neutrophil Abs 4.57 10e9/L Unknown COMPLETE BLOOD COUNT [id number] Lymphocyte Abs 2.72 10e9/L Unknown COMPLETE BLOOD COUNT [id number] Monocyte Abs 0.70 10e9/L 04/08 Unknown COMPLETE BLOOD COUNT [id number] Eosinophil Abs 0.20 10e9/L Unknown COMPLETE BLOOD COUNT [id number] RDW-SD 48.8 fL 9 Unknown COMPLETE BLOOD COUNT [id number] Basophil Abs 0.02 10e9/L 04/08 Unknown MICROALBUMIN URINE RANDOM 30013 U Microalbumin 19.3 mg/L 01/19/2018 Unknown MICROALBUMIN URINE RANDOM 64021 U Creatinine 96 mg/dL 1 Unknown MICROALBUMIN URINE RANDOM 92744 ALB/CR Ratio 20.1 mg/gCR 01/19/2018 Unknown LIPID GROUP 38520 Cholesterol 173 mg/dL 01/13/2018 Unkno wn LIPID GROUP 20989 Triglyceride 386 mg/dL 01/13/2018 Unkn own LIPID GROUP 16072 HDL CHOLESTEROL 37 mg/dL 01/13/2018 U nknown LIPID GROUP 69337 Chol/HDL Ratio 4.68 ratio 01/13/2018 U nknown LIPID GROUP 56331 NON-HDL Chol 136 mg/dL 01/13/2018 Unkn own LIPID GROUP 06238 LDL Cholesterol 59 mg/dL 01/13/2018 U nknown COMPLETE BLOOD COUNT [id number] WBC TNP:Client Request 01/13/2018 Unknown COMPLETE BLOOD COUNT [id number] RBC TNP:Client Request 01/13/2018 Unknown COMPLETE BLOOD COUNT [id number] HEMOGLOBIN TNP:Client Request 01/13/2018 Unknown COMPLETE BLOOD COUNT [id number] HEMATOCRIT TNP:Client Request 01/13/2018 Unknown COMPLETE BLOOD COUNT [id number] MCV TNP:Client Request 01/13/2018 Unknown COMPLETE BLOOD COUNT 6889677 MCH TNP:Client Request 01/13/2018 Unknown COMPLETE BLOOD COUNT 7109363 MCHC TNP:Client Request 01/13/2018 Unknown COMPLETE BLOOD COUNT [id number] PLATELET COUNT TNP:Client Req uest 01/13/2018 Unknown COMPLETE BLOOD COUNT 2444655 Mean Plt Volume TNP:Client Re quest 01/13/2018 Unknown COMPLETE BLOOD COUNT 1443157 Neut Auto TNP:Client Request 01/13/2018 Unknown COMPLETE BLOOD COUNT [id number] Lymph Auto TNP:Client Request 01/13/2018 Unknown COMPLETE BLOOD COUNT [id number] Leake Auto TNP:Client Request 01/13/2018 Unknown COMPLETE BLOOD COUNT 5345446 RDW TNP:Client Request 01/13/2018 Unknown COMPLETE BLOOD COUNT [id number] Eos Auto TNP:Client Request 01/13/2018 Unknown COMPLETE BLOOD COUNT [id number] Baso Auto TNP:Client Request 01/13/2018 Unknown COMPLETE BLOOD COUNT [id number] Neutrophil Abs TNP:Client Req uest 01/13/2018 Unknown COMPLETE BLOOD COUNT [id number] Lymphocyte Abs TNP:Client Req uest 01/13/2018 Unknown COMPLETE BLOOD COUNT [id number] Monocyte Abs TNP:Client Reque st 01/13/2018 Unknown COMPLETE BLOOD COUNT [id number] Eosinophil Abs TNP:Client Req uest 01/13/2018 Unknown COMPLETE BLOOD COUNT [id number] RDW-SD TNP:Client Request 01/13/2018 Unknown COMPLETE BLOOD COUNT [id number] Basophil Abs TNP:Client Reque st 01/13/2018 Unknown GLYCOSYLATED HEMOGLOBIN TEST 53220 Hgb A1c 82863-5 6.2 % 1 Unknown THYROID STIMULATING HORMONE 48591 TSH 2.764 uIU/mL 01/13/2018 Unknown COMPREHENSIVE METABOLIC 81822 AST 19 U/L 2017 Unknown COMPREHENSIVE METABOLIC 52910 ALT 21 U/L 2017 Unknown COMPREHENSIVE METABOLIC 79911 BUN 16 mg/dL 2017 Unknown COMPREHENSIVE METABOLIC 22780 ALBUMIN 4.2 g/dL 2017 Unknown COMPREHENSIVE METABOLIC 89761 CHLORIDE 105 mmol/L 01/13 Unknown COMPREHENSIVE METABOLIC 98173 Bili Total 0.5 mg/dL 01/13 Unknown COMPREHENSIVE METABOLIC 35575 ALK PHOS 85 U/L 2017 Unknown COMPREHENSIVE METABOLIC 03653 SODIUM 139 mmol/L 01/13 Unknown COMPREHENSIVE METABOLIC 57381 CREATININE 1.07 mg/dL 01/04 Unknown COMPREHENSIVE METABOLIC 71321 CALCIUM 9.2 mg/dL 2017 Unknown COMPREHENSIVE METABOLIC 43606 POTASSIUM 4.4 mmol/L 01/13 Unknown COMPREHENSIVE METABOLIC 58298 Total Protein 7.7 g/dL Unknown COMPREHENSIVE METABOLIC 36031 Glucose 130 mg/dL 2017 Unknown COMPREHENSIVE METABOLIC 72332 Bicarbonate 27 mmol/L 01/04 Unknown COMPREHENSIVE METABOLIC 23124 AGAP 7 mmol/L 2017 Unknown PSA EQUIMOLAR JERSON 58999 PSA Total 1.16 ng/mL 8 Unknown MEAN GLUC 3338483 Calc Mean Gluc 131 mg/dL 01/13/2018 Unkn own GFR CALC 7109617 GFR Non Afr Amr >60 mL/min 01/13/2018 Un known GFR CALC 5313451 GFR Afr Amr >60 mL/min 01/13/2018 Unknow n MEAN GLUC 4554320 Calc Mean Gluc 134 mg/dL 10/06/2017 Unkn own GFR CALC 8199974 GFR Non Afr Amr >60 mL/min 10/06/2017 Un known GFR CALC 5892675 GFR Afr Amr >60 mL/min 10/06/2017 Unknow n GLYCOSYLATED HEMOGLOBIN TEST 75685 Hgb A1c 85287-4 6.3 % 0 10/06/2017 Unknown VITAMIN B 12 05657 VITAMIN B12 1202 pg/mL 10/06/2017 Unk nown COMPLETE BLOOD COUNT [id number] WBC 7.4 10e9/L 10/07/19 18 Unknown COMPLETE BLOOD COUNT 1296106 RBC 4.24 10e12/L 2017 Unknown COMPLETE BLOOD COUNT [id number] HEMOGLOBIN 13.5 g/dL 10/07/19 18 Unknown COMPLETE BLOOD COUNT [id number] HEMATOCRIT 41.6 % 10/07/19 18 Unknown COMPLETE BLOOD COUNT [id number] MCV 98.1 fL 8 Unknown COMPLETE BLOOD COUNT 2823749 MCH 31.8 pg 8 Unknown COMPLETE BLOOD COUNT 6901825 MCHC 32.5 g/dL 8 Unknown COMPLETE BLOOD COUNT 0446387 PLATELET COUNT 223 10e9/L 06/2017 Unknown COMPLETE BLOOD COUNT 9377297 Mean Plt Volume 11.9 fL 06/2017 Unknown COMPLETE BLOOD COUNT 9884026 Neut Auto 58.0 % 8 Unknown COMPLETE BLOOD COUNT 4881260 Lymph Auto 29.7 % 10/07/19 18 Unknown COMPLETE BLOOD COUNT 8265941 Leake Auto 8.3 % 8 Unknown COMPLETE BLOOD COUNT 1567510 RDW 14.0 % 8 Unknown COMPLETE BLOOD COUNT 1693184 Eos Auto 3.7 % 8 Unknown COMPLETE BLOOD COUNT 3230350 Baso Auto 0.3 % 8 Unknown COMPLETE BLOOD COUNT 6586142 Neutrophil Abs 4.29 10e9/L Unknown COMPLETE BLOOD COUNT [id number] Lymphocyte Abs 2.20 10e9/L Unknown COMPLETE BLOOD COUNT 2996014 Monocyte Abs 0.61 10e9/L 06/2017 Unknown COMPLETE BLOOD COUNT 8125654 Eosinophil Abs 0.27 10e9/L Unknown COMPLETE BLOOD COUNT 7741018 RDW-SD 48.6 fL 8 Unknown COMPLETE BLOOD COUNT 1367755 Basophil Abs 0.02 10e9/L 06/2017 Unknown LIPID GROUP 33014 Cholesterol 216 mg/dL 10/06/2017 Unkno wn LIPID GROUP 11144 Triglyceride 335 mg/dL 10/06/2017 Unkn own LIPID GROUP 19984 HDL CHOLESTEROL 33 mg/dL 10/06/2017 U nknown LIPID GROUP 91166 Chol/HDL Ratio 6.55 ratio 10/06/2017 U nknown LIPID GROUP 00288 NON-HDL Chol 183 mg/dL 10/06/2017 Unkn own LIPID GROUP 60339 LDL Cholesterol 116 mg/dL 10/06/2017 U nknown COMPREHENSIVE METABOLIC 65777 AST 15 U/L 2017 Unknown COMPREHENSIVE METABOLIC 47309 ALT 15 U/L 2017 Unknown COMPREHENSIVE METABOLIC 05625 BUN 21 mg/dL 2017 Unknown COMPREHENSIVE METABOLIC 85653 ALBUMIN 4.1 g/dL 2017 Unknown COMPREHENSIVE METABOLIC 53140 CHLORIDE 107 mmol/L 10/06 Unknown COMPREHENSIVE METABOLIC 53410 Bili Total 0.6 mg/dL 10/06 Unknown COMPREHENSIVE METABOLIC 55372 ALK PHOS 68 U/L 2017 Unknown COMPREHENSIVE METABOLIC 43863 SODIUM 140 mmol/L 10/06 Unknown COMPREHENSIVE METABOLIC 46969 CREATININE 1.12 mg/dL 06/2017 Unknown COMPREHENSIVE METABOLIC 96810 CALCIUM 9.7 mg/dL 2017 Unknown COMPREHENSIVE METABOLIC 16325 POTASSIUM 4.6 mmol/L 10/06 Unknown COMPREHENSIVE METABOLIC 66791 Total Protein 6.6 g/dL Unknown COMPREHENSIVE METABOLIC 56672 Glucose 114 mg/dL 2017 Unknown COMPREHENSIVE METABOLIC 73215 Bicarbonate 26 mmol/L 06/2017 Unknown COMPREHENSIVE METABOLIC 48411 AGAP 7 mmol/L 2017 Unknown GLYCOSYLATED HEMOGLOBIN TEST 00117 Hgb A1c 28183-0 6.1 % 1 05/05/2016 Unknown GFR CALC 8008310 GFR Non Afr Amr >60 mL/min 03/05/2017 Un known GFR CALC 3003887 GFR Afr Amr >60 mL/min 03/05/2017 Unknow n MEAN GLUC 0386823 Calc Mean Gluc 128 mg/dL 03/05/2017 Unkn own COMPREHENSIVE METABOLIC 64242 AST 18 U/L 2016 Unknown COMPREHENSIVE METABOLIC 55408 ALT 20 U/L 2016 Unknown COMPREHENSIVE METABOLIC 89612 BUN 15 mg/dL 2016 Unknown COMPREHENSIVE METABOLIC 27307 ALBUMIN 4.3 g/dL 2016 Unknown COMPREHENSIVE METABOLIC 11055 CHLORIDE 105 mmol/L 03/05 Unknown COMPREHENSIVE METABOLIC 32782 Bili Total 0.5 mg/dL 03/05 Unknown COMPREHENSIVE METABOLIC 27807 ALK PHOS 57 U/L 2016 Unknown COMPREHENSIVE METABOLIC 53298 SODIUM 141 mmol/L 03/05 Unknown COMPREHENSIVE METABOLIC 10935 CREATININE 1.07 mg/dL 02/06 Unknown COMPREHENSIVE METABOLIC 81524 CALCIUM 9.3 mg/dL 2016 Unknown COMPREHENSIVE METABOLIC 24113 POTASSIUM 4.8 mmol/L 03/05 Unknown COMPREHENSIVE METABOLIC 69180 Total Protein 6.2 g/dL Unknown COMPREHENSIVE METABOLIC 09568 Glucose 118 mg/dL 2016 Unknown COMPREHENSIVE METABOLIC 31614 Bicarbonate 29 mmol/L 02/06 Unknown COMPREHENSIVE METABOLIC 65621 AGAP 7 mmol/L 2016 Unknown FREE T4 03235 T4 Free 1.38 ng/dL 03/05/2017 Unknown COMPLETE BLOOD COUNT 6774335 WBC 8.4 10e9/L 03/05/20 17 Unknown COMPLETE BLOOD COUNT 1987475 RBC 4.11 10e12/L 2016 Unknown COMPLETE BLOOD COUNT 5993031 HEMOGLOBIN 12.8 g/dL 03/05/20 17 Unknown COMPLETE BLOOD COUNT 7457307 HEMATOCRIT 40.1 % 03/05/20 17 Unknown COMPLETE BLOOD COUNT 9581358 MCV 97.6 fL 7 Unknown COMPLETE BLOOD COUNT 5958490 MCH 31.1 pg 7 Unknown COMPLETE BLOOD COUNT 3017437 MCHC 31.9 g/dL 7 Unknown COMPLETE BLOOD COUNT 0562612 PLATELET COUNT 184 10e9/L Unknown COMPLETE BLOOD COUNT 7568914 Mean Plt Volume 11.3 fL Unknown COMPLETE BLOOD COUNT 0617844 Neut Auto 62.5 % 7 Unknown COMPLETE BLOOD COUNT 2276439 Lymph Auto 26.4 % 03/05/20 17 Unknown COMPLETE BLOOD COUNT 8877552 Leake Auto 7.9 % 7 Unknown COMPLETE BLOOD COUNT 5224019 RDW 13.5 % 7 Unknown COMPLETE BLOOD COUNT 0323724 Eos Auto 3.0 % 7 Unknown COMPLETE BLOOD COUNT 8988864 Baso Auto 0.2 % 7 Unknown COMPLETE BLOOD COUNT 8258258 Neutrophil Abs 5.25 10e9/L Unknown COMPLETE BLOOD COUNT 8097062 Lymphocyte Abs 2.22 10e9/L Unknown COMPLETE BLOOD COUNT 7072442 Monocyte Abs 0.66 10e9/L 02/06 Unknown COMPLETE BLOOD COUNT 9657282 Eosinophil Abs 0.25 10e9/L Unknown COMPLETE BLOOD COUNT 0645484 RDW-SD 46.7 fL 7 Unknown COMPLETE BLOOD COUNT 7254855 Basophil Abs 0.02 10e9/L 02/06 Unknown THYROID STIMULATING HORMONE 83339 TSH 2.330 uIU/mL 03/05/2017 Unknown LIPID GROUP 24386 Cholesterol 135 mg/dL 03/05/2017 Unkno wn LIPID GROUP 70722 Triglyceride 297 mg/dL 03/05/2017 Unkn own LIPID GROUP 65594 HDL CHOLESTEROL 34 mg/dL 03/05/2017 U nknown LIPID GROUP 97128 Chol/HDL Ratio 3.97 ratio 03/05/2017 U nknown LIPID GROUP 14762 NON-HDL Chol 101 mg/dL 03/05/2017 Unkn own LIPID GROUP 71569 LDL Cholesterol 42 mg/dL 03/05/2017 U nknown GLYCOSYLATED HEMOGLOBIN TEST 14232 Hgb A1c 29209-3 6.5 % 1 05/07/2015 Unknown GFR CALC 5748851 GFR Non Afr Amr 55 mL/min 03/06/2016 Unk nown GFR CALC 6273111 GFR Afr Amr >60 mL/min 03/06/2016 Unknow n COMPLETE BLOOD COUNT 8848175 WBC 8.5 10e9/L 03/06/20 16 Unknown COMPLETE BLOOD COUNT 7490019 RBC 4.32 10e12/L 2015 Unknown COMPLETE BLOOD COUNT 7112842 HEMOGLOBIN 13.5 g/dL 03/06/20 16 Unknown COMPLETE BLOOD COUNT 6318382 HEMATOCRIT 41.3 % 03/06/20 16 Unknown COMPLETE BLOOD COUNT 7389033 MCV 95.6 fL 6 Unknown COMPLETE BLOOD COUNT 1041242 MCH 31.3 pg 6 Unknown COMPLETE BLOOD COUNT 0802163 MCHC 32.7 g/dL 6 Unknown COMPLETE BLOOD COUNT 7452202 PLATELET COUNT 191 10e9/L 04/2015 Unknown COMPLETE BLOOD COUNT 2640022 Mean Plt Volume 11.7 fL 04/2015 Unknown COMPLETE BLOOD COUNT 4478326 Neut Auto 64.2 % 6 Unknown COMPLETE BLOOD COUNT 9669903 Lymph Auto 25.9 % 03/06/20 16 Unknown COMPLETE BLOOD COUNT 4807596 Leake Auto 7.8 % 6 Unknown COMPLETE BLOOD COUNT 9337252 RDW 13.4 % 6 Unknown COMPLETE BLOOD COUNT 3625303 Eos Auto 2.0 % 6 Unknown COMPLETE BLOOD COUNT 1515704 Baso Auto 0.1 % 6 Unknown COMPLETE BLOOD COUNT 7073831 Neutrophil Abs 5.46 10e9/L Unknown COMPLETE BLOOD COUNT 8933537 Lymphocyte Abs 2.20 10e9/L Unknown COMPLETE BLOOD COUNT 7487115 Monocyte Abs 0.66 10e9/L 04/2015 Unknown COMPLETE BLOOD COUNT 3747100 Eosinophil Abs 0.17 10e9/L Unknown COMPLETE BLOOD COUNT 5697816 RDW-SD 45.0 fL 6 Unknown COMPLETE BLOOD COUNT 9743879 Basophil Abs 0.01 10e9/L 04/2015 Unknown FREE T4 11225 T4 Free 1.34 ng/dL 03/06/2016 Unknown MEAN GLUC 1290266 Calc Mean Gluc 140 mg/dL 03/06/2016 Unkn own COMPREHENSIVE METABOLIC 82559 AST 15 U/L 2015 Unknown COMPREHENSIVE METABOLIC 42619 ALT 18 U/L 2015 Unknown COMPREHENSIVE METABOLIC 51948 BUN 21 mg/dL 2015 Unknown COMPREHENSIVE METABOLIC 79637 ALBUMIN 4.3 g/dL 2015 Unknown COMPREHENSIVE METABOLIC 11385 CHLORIDE 103 mmol/L 03/06 Unknown COMPREHENSIVE METABOLIC 83272 Bili Total 0.4 mg/dL 03/06 Unknown COMPREHENSIVE METABOLIC 35897 ALK PHOS 68 U/L 2015 Unknown COMPREHENSIVE METABOLIC 13676 SODIUM 140 mmol/L 03/06 Unknown COMPREHENSIVE METABOLIC 76070 CREATININE 1.31 mg/dL 04/2015 Unknown COMPREHENSIVE METABOLIC 97639 CALCIUM 9.4 mg/dL 2015 Unknown COMPREHENSIVE METABOLIC 71918 POTASSIUM 4.8 mmol/L 03/06 Unknown COMPREHENSIVE METABOLIC 09357 Total Protein 6.6 g/dL Unknown COMPREHENSIVE METABOLIC 14565 Glucose 142 mg/dL 2015 Unknown COMPREHENSIVE METABOLIC 83150 Bicarbonate 29 mmol/L 04/2015 Unknown COMPREHENSIVE METABOLIC 97393 AGAP 8 mmol/L 2015 Unknown THYROID STIMULATING HORMONE 36107 TSH 2.288 uIU/mL 03/06/2016 Unknown LIPID GROUP 52046 Cholesterol 154 mg/dL 03/06/2016 Unkno wn LIPID GROUP 21844 Triglyceride 266 mg/dL 03/06/2016 Unkn own LIPID GROUP 23228 HDL CHOLESTEROL 38 mg/dL 03/06/2016 U nknown LIPID GROUP 95321 Chol/HDL Ratio 4.05 ratio 03/06/2016 U nknown LIPID GROUP 22487 NON-HDL Chol 116 mg/dL 03/06/2016 Unkn own LIPID GROUP 31656 LDL Cholesterol 63 mg/dL 03/06/2016 U nknown MEAN GLUC Mean Glucose 128 mg/dL 08/31/2015 Unknow n COMPLETE BLOOD COUNT 9233886 WBC 8.4 10e9/L 08/31/19 16 Unknown COMPLETE BLOOD COUNT 8956105 RBC 4.12 10e12/L 2015 Unknown COMPLETE BLOOD COUNT 3272748 HEMOGLOBIN 12.8 g/dL 08/31/19 16 Unknown COMPLETE BLOOD COUNT 2395631 HEMATOCRIT 39.6 % 08/31/19 16 Unknown COMPLETE BLOOD COUNT 6177978 MCV 96.1 fL 6 Unknown COMPLETE BLOOD COUNT 4147875 MCH 31.1 pg 6 Unknown COMPLETE BLOOD COUNT 9705438 MCHC 32.3 g/dL 6 Unknown COMPLETE BLOOD COUNT 6744027 PLATELET COUNT 184 10e9/L Unknown COMPLETE BLOOD COUNT 1444737 Mean Plt Volume 12.0 fL Unknown COMPLETE BLOOD COUNT 5047659 Neut Auto 59.8 % 6 Unknown COMPLETE BLOOD COUNT 5971835 Lymph Auto 27.9 % 08/31/19 16 Unknown COMPLETE BLOOD COUNT 5004298 Leake Auto 9.1 % 6 Unknown COMPLETE BLOOD COUNT 9766346 RDW 13.6 % 6 Unknown COMPLETE BLOOD COUNT 8200447 Eos Auto 3.1 % 6 Unknown COMPLETE BLOOD COUNT 9974349 Baso Auto 0.1 % 6 Unknown COMPLETE BLOOD COUNT 5484006 Neutrophil Abs 5.02 10e9/L Unknown COMPLETE BLOOD COUNT 0632334 Lymphoctye Abs 2.34 10e9/L Unknown COMPLETE BLOOD COUNT 5292298 Monocyte Abs 0.76 10e9/L 08/05 Unknown COMPLETE BLOOD COUNT 4823949 Eosinophil Abs 0.26 10e9/L Unknown COMPLETE BLOOD COUNT 2393514 RDW-SD 46.3 fL 6 Unknown COMPLETE BLOOD COUNT 1784902 Basophil Abs 0.01 10e9/L 08/05 Unknown GLYCOSYLATED HEMOGLOBIN TEST 74023 Hgb A1c 68369-5 6.1 % 0 08/31/2015 Unknown GFR CALC 6121735 GFR Non Afr Amr >60 mL/min 08/31/2015 Un known GFR CALC 9060865 GFR Afr Amr >60 mL/min 08/31/2015 Unknow n FREE T4 86405 T4 Free 1.21 ng/dL 08/31/2015 Unknown THYROID STIMULATING HORMONE 64478 TSH 2.988 uIU/mL 08/31/2015 Unknown COMPREHENSIVE METABOLIC 48137 AST 16 U/L 2015 Unknown COMPREHENSIVE METABOLIC 65263 ALT 19 U/L 2015 Unknown COMPREHENSIVE METABOLIC 28962 BUN 17 mg/dL 2015 Unknown COMPREHENSIVE METABOLIC 90939 ALBUMIN 4.3 g/dL 2015 Unknown COMPREHENSIVE METABOLIC 10326 CHLORIDE 107 mmol/L 08/30 Unknown COMPREHENSIVE METABOLIC 53211 Bili Total 0.4 mg/dL 08/30 Unknown COMPREHENSIVE METABOLIC 08381 ALK PHOS 66 U/L 2015 Unknown COMPREHENSIVE METABOLIC 48266 SODIUM 140 mmol/L 08/30 Unknown COMPREHENSIVE METABOLIC 89895 CREATININE 1.07 mg/dL 08/05 Unknown COMPREHENSIVE METABOLIC 09205 CALCIUM 9.5 mg/dL 2015 Unknown COMPREHENSIVE METABOLIC 52964 POTASSIUM 4.5 mmol/L 08/30 Unknown COMPREHENSIVE METABOLIC 88155 Total Protein 6.7 g/dL Unknown COMPREHENSIVE METABOLIC 40075 Glucose 122 mg/dL 2015 Unknown COMPREHENSIVE METABOLIC 62474 Bicarbonate 26 mmol/L 08/05 Unknown COMPREHENSIVE METABOLIC 06804 AGAP 7 mmol/L 2015 Unknown LIPID GROUP 42609 Cholesterol 171 mg/dL 08/31/2015 Unkno wn LIPID GROUP 09819 Triglyceride 428 mg/dL 08/31/2015 Unkn own LIPID GROUP 52768 HDL CHOLESTEROL 35 mg/dL 08/31/2015 U nknown LIPID GROUP 61619 Chol/HDL Ratio 4.89 ratio 08/31/2015 U nknown LIPID GROUP 51201 NON-HDL Chol 136 mg/dL 08/31/2015 Unkn own LIPID GROUP 17229 LDL Cholesterol 50 mg/dL 08/31/2015 U nknown PSA EQUIMOLAR JERSON 21676 PSA Total 0.47 ng/mL 6 Unknown GFR CALC 7675037 GFR AA >60 ML/MIN 01/12/2015 Unknown GFR CALC 3721615 GFR NON-AA >60 ML/MIN 01/12/2015 Unknown COMPREHENSIVE METABOLIC 42586 AST 18 U/L 2014 Unknown COMPREHENSIVE METABOLIC 55870 ALT 19 IU/L 2014 Unknown COMPREHENSIVE METABOLIC 53146 BUN 19 MG/DL 2014 Unknown COMPREHENSIVE METABOLIC 96285 ALBUMIN 4.7 GM/DL 2014 Unknown COMPREHENSIVE METABOLIC 10035 CHLORIDE 104 MMOL/L 01/12 Unknown COMPREHENSIVE METABOLIC 72230 BILI TOT 0.8 MG/DL 2014 Unknown COMPREHENSIVE METABOLIC 77826 ALK PHOS 58 U/L 2014 Unknown COMPREHENSIVE METABOLIC 25647 SODIUM 139 MMOL/L 01/12 Unknown COMPREHENSIVE METABOLIC 69515 CREATININE 1.09 MG/DL 12/2014 Unknown COMPREHENSIVE METABOLIC 21939 CALCIUM 9.6 MG/DL 2014 Unknown COMPREHENSIVE METABOLIC 35777 POTASSIUM 4.4 MMOL/L 01/12 Unknown COMPREHENSIVE METABOLIC 67736 PROT TOT 6.7 GM/DL 2014 Unknown COMPREHENSIVE METABOLIC 44846 Glucose 109 MG/DL 2014 Unknown COMPREHENSIVE METABOLIC 74664 BICARB 27 MMOL/L 2014 Unknown COMPREHENSIVE METABOLIC 59737 ANION GAP 8 MEQ/L 2014 Unknown LIPID GROUP 90576 HDL TEST 36 MG/DL 01/12/2015 Unknown LIPID GROUP 56983 TRIG 220 MG/DL 01/12/2015 Unknown LIPID GROUP 76021 TEST LDL 58 MG/DL 01/12/2015 Unknown LIPID GROUP 22525 CHOL 138 MG/DL 01/12/2015 Unknown LIPID GROUP 32495 RCHOL/HDL 3.83 RATIO 01/12/2015 Unknow n LIPID GROUP 88126 NON-HDL CH 102 MG/DL 01/12/2015 Unknow n GLYCOSYLATED HEMOGLOBIN TEST 23568 A1C HPLC 72189-2 6.1 % 1 Unknown COMPLETE BLOOD COUNT 7324032 WBC 7.1 10e9/L 01/13/20 15 Unknown COMPLETE BLOOD COUNT 1837943 RBC 4.38 10e12/L 2014 Unknown COMPLETE BLOOD COUNT 1755152 HGB 13.7 g/dL 5 Unknown COMPLETE BLOOD COUNT 9095892 HCT DET 41.3 % 5 Unknown COMPLETE BLOOD COUNT 4848528 MCV 94.3 fL 5 Unknown COMPLETE BLOOD COUNT 2399703 MCH 31.3 pg 5 Unknown COMPLETE BLOOD COUNT 3211726 MCHC 33.2 g/dL 5 Unknown COMPLETE BLOOD COUNT 2784489 PLT 174 10e9/L 01/13/20 15 Unknown COMPLETE BLOOD COUNT 2497441 MPV 11.8 fL 5 Unknown COMPLETE BLOOD COUNT 7521276 SAMIR % 61.3 % 5 Unknown COMPLETE BLOOD COUNT 8150824 LY % 28.3 % 5 Unknown COMPLETE BLOOD COUNT 7651881 MON % 7.6 % 5 Unknown COMPLETE BLOOD COUNT 5557258 EOS % 2.7 % 5 Unknown COMPLETE BLOOD COUNT 2043092 BASO % 0.1 % 5 Unknown COMPLETE BLOOD COUNT 3758927 RDW 13.1 % 5 Unknown COMPLETE BLOOD COUNT 8799975 ABS SAMIR 4.35 10e9/L 015 Unknown COMPLETE BLOOD COUNT 5150904 ABS LYMPH 2.01 10e9/L 015 Unknown COMPLETE BLOOD COUNT 2495824 ABS MONO 0.54 10e9/L 015 Unknown COMPLETE BLOOD COUNT 8512471 ABS EOS 0.19 10e9/L 015 Unknown COMPLETE BLOOD COUNT 6184689 ABS BASO 0.01 10e9/L 015 Unknown COMPLETE BLOOD COUNT 5335648 RDW-SD 43.9 fL 5 Unknown GLYCOSYLATED HEMOGLOBIN TEST 25583 A1C HPLC 77115-4 6.1 % 0 08/15/2014 Unknown COMPLETE BLOOD COUNT 9561426 WBC 9.7 10e9/L 08/16/19 15 Unknown COMPLETE BLOOD COUNT 1917074 RBC 4.29 10e12/L 2014 Unknown COMPLETE BLOOD COUNT 1839289 HGB 13.3 g/dL 5 Unknown COMPLETE BLOOD COUNT 2419832 HCT DET 40.5 % 5 Unknown COMPLETE BLOOD COUNT 3052460 MCV 94.4 fL 5 Unknown COMPLETE BLOOD COUNT 1508962 MCH 31.0 pg 5 Unknown COMPLETE BLOOD COUNT 1751848 MCHC 32.8 g/dL 5 Unknown COMPLETE BLOOD COUNT 2079007 PLT 227 10e9/L 08/16/19 15 Unknown COMPLETE BLOOD COUNT 0677542 MPV 11.0 fL 5 Unknown COMPLETE BLOOD COUNT 9801512 SAMIR % 66.4 % 5 Unknown COMPLETE BLOOD COUNT 5514100 LY % 23.7 % 5 Unknown COMPLETE BLOOD COUNT 5510902 MON % 8.1 % 5 Unknown COMPLETE BLOOD COUNT 8901548 EOS % 1.6 % 5 Unknown COMPLETE BLOOD COUNT 9612419 BASO % 0.2 % 5 Unknown COMPLETE BLOOD COUNT 1643176 RDW 13.4 % 5 Unknown COMPLETE BLOOD COUNT 3682314 ABS SAMIR 6.44 10e9/L 015 Unknown COMPLETE BLOOD COUNT 9679829 ABS LYMPH 2.30 10e9/L 015 Unknown COMPLETE BLOOD COUNT 3298302 ABS MONO 0.79 10e9/L 015 Unknown COMPLETE BLOOD COUNT 5255291 ABS EOS 0.16 10e9/L 015 Unknown COMPLETE BLOOD COUNT 3105616 ABS BASO 0.02 10e9/L 015 Unknown COMPLETE BLOOD COUNT 9070716 RDW-SD 44.7 fL 5 Unknown COMPREHENSIVE METABOLIC 21049 AST 17 U/L 2014 Unknown COMPREHENSIVE METABOLIC 37577 ALT 23 IU/L 2014 Unknown COMPREHENSIVE METABOLIC 37694 BUN 16 MG/DL 2014 Unknown COMPREHENSIVE METABOLIC 90277 ALBUMIN 4.3 GM/DL 2014 Unknown COMPREHENSIVE METABOLIC 22444 CHLORIDE 107 MMOL/L 08/15 Unknown COMPREHENSIVE METABOLIC 58235 BILI TOT 0.4 MG/DL 2014 Unknown COMPREHENSIVE METABOLIC 33065 ALK PHOS 91 U/L 2014 Unknown COMPREHENSIVE METABOLIC 90364 SODIUM 139 MMOL/L 08/15 Unknown COMPREHENSIVE METABOLIC 25103 CREATININE 1.07 MG/DL 08/04 Unknown COMPREHENSIVE METABOLIC 69372 CALCIUM 9.6 MG/DL 2014 Unknown COMPREHENSIVE METABOLIC 16161 POTASSIUM 4.6 MMOL/L 08/15 Unknown COMPREHENSIVE METABOLIC 28668 PROT TOT 6.7 GM/DL 2014 Unknown COMPREHENSIVE METABOLIC 11182 Glucose 111 MG/DL 2014 Unknown COMPREHENSIVE METABOLIC 39097 BICARB 27 MMOL/L 2014 Unknown COMPREHENSIVE METABOLIC 20637 ANION GAP 5 MEQ/L 2014 Unknown GFR CALC 7426707 GFR AA >60 ML/MIN 08/15/2014 Unknown GFR CALC 1945285 GFR NON-AA >60 ML/MIN 08/15/2014 Unknown THYROID STIMULATING HORMONE 00423 TSH 1.598 uIU/ML 08/15/2014 Unknown LIPID GROUP 70055 HDL TEST 33 MG/DL 08/15/2014 Unknown LIPID GROUP 87556 TRIG 187 MG/DL 08/15/2014 Unknown LIPID GROUP 65405 TEST LDL 58 MG/DL 08/15/2014 Unknown LIPID GROUP 35081 CHOL 128 MG/DL 08/15/2014 Unknown LIPID GROUP 01156 RCHOL/HDL 3.88 RATIO 08/15/2014 Unknow n LIPID GROUP 63913 NON-HDL CH 95 MG/DL 08/15/2014 Unknow n PSA EQUIMOLAR JERSON 97363 PSA EQ 0.70 NG/ML 5 Unknown FREE T4 60649 FREE T4 1.32 NG/DL 08/15/2014 Unknown GFR CALC 6754738 GFR AA >60 ML/MIN 12/14/2013 Unknown GFR CALC 3472201 GFR NON-AA 58.0L ML/MIN 12/14/2013 Unkno wn COMPLETE BLOOD COUNT 6946077 WBC 8.7 10e9/L 12/15/19 14 Unknown COMPLETE BLOOD COUNT 2960226 RBC 4.32 10e12/L 2013 Unknown COMPLETE BLOOD COUNT 6025218 HGB 13.5 g/dL 4 Unknown COMPLETE BLOOD COUNT 4874300 HCT DET 40.6 % 4 Unknown COMPLETE BLOOD COUNT 5101874 MCV 94.0 fL 4 Unknown COMPLETE BLOOD COUNT 8009135 MCH 31.3 pg 4 Unknown COMPLETE BLOOD COUNT 4537803 MCHC 33.3 g/dL 4 Unknown COMPLETE BLOOD COUNT 3498250 PLT 205 10e9/L 12/15/19 14 Unknown COMPLETE BLOOD COUNT 7360701 MPV 11.7 fL 4 Unknown COMPLETE BLOOD COUNT 6322289 SAMIR % 62.5 % 4 Unknown COMPLETE BLOOD COUNT 2813974 LY % 26.9 % 4 Unknown COMPLETE BLOOD COUNT 0680822 MON % 8.8 % 4 Unknown COMPLETE BLOOD COUNT 5719159 EOS % 1.7 % 4 Unknown COMPLETE BLOOD COUNT 2956413 BASO % 0.1 % 4 Unknown COMPLETE BLOOD COUNT 5848988 RDW 13.4 % 4 Unknown COMPLETE BLOOD COUNT 4152549 ABS SAMIR 5.44 10e9/L 014 Unknown COMPLETE BLOOD COUNT 4993226 ABS LYMPH 2.34 10e9/L 014 Unknown COMPLETE BLOOD COUNT 7417280 ABS MONO 0.77 10e9/L 014 Unknown COMPLETE BLOOD COUNT [id number] ABS EOS 0.15 10e9/L 014 Unknown COMPLETE BLOOD COUNT [id number] ABS BASO 0.01 10e9/L 014 Unknown COMPLETE BLOOD COUNT [id number] RDW-SD 44.7 fL 4 Unknown COMPREHENSIVE METABOLIC 06368 AST 14 U/L 2013 Unknown COMPREHENSIVE METABOLIC 91647 ALT 12 IU/L 2013 Unknown COMPREHENSIVE METABOLIC 24417 BUN 24 MG/DL 2013 Unknown COMPREHENSIVE METABOLIC 52904 ALBUMIN 4.5 GM/DL 2013 Unknown COMPREHENSIVE METABOLIC 98478 CHLORIDE 104 MMOL/L 12/14 Unknown COMPREHENSIVE METABOLIC 36999 BILI TOT 0.6 MG/DL 2013 Unknown COMPREHENSIVE METABOLIC 40509 ALK PHOS 82 U/L 2013 Unknown COMPREHENSIVE METABOLIC 08824 SODIUM 135 MMOL/L 12/14 Unknown COMPREHENSIVE METABOLIC 87723 CREATININE 1.25 MG/DL 12/05 Unknown COMPREHENSIVE METABOLIC 39104 CALCIUM 9.8 MG/DL 2013 Unknown COMPREHENSIVE METABOLIC 41515 POTASSIUM 4.7 MMOL/L 12/14 Unknown COMPREHENSIVE METABOLIC 55519 PROT TOT 6.7 GM/DL 2013 Unknown COMPREHENSIVE METABOLIC 08824 Glucose 126 MG/DL 2013 Unknown COMPREHENSIVE METABOLIC 11827 BICARB 27 MMOL/L 2013 Unknown COMPREHENSIVE METABOLIC 57964 ANION GAP 4 MEQ/L 2013 Unknown THYROID STIMULATING HORMONE 33072 TSH 3.281 uIU/ML 12/14/2013 Unknown FREE T4 60793 FREE T4 1.28 NG/DL 12/14/2013 Unknown LIPID GROUP 83752 HDL TEST 36 MG/DL 12/14/2013 Unknown LIPID GROUP 34517 TRIG 253 MG/DL 12/14/2013 Unknown LIPID GROUP 89358 TEST LDL 56 MG/DL 12/14/2013 Unknown LIPID GROUP 68833 CHOL 143 MG/DL 12/14/2013 Unknown LIPID GROUP 88966 RCHOL/HDL 3.97 RATIO 12/14/2013 Unknow n LIPID GROUP 15943 NON-HDL CH 107 MG/DL 12/14/2013 Unknow n GLYCOSYLATED HEMOGLOBIN TEST 09115 A1C HPLC 06998-0 6.1 % 0 12/14/2013 Unknown GLYCOSYLATED HEMOGLOBIN TEST 82886 A1C HPLC 25977-2 6.0 % 0 06/08/2013 Unknown LIPID GROUP 51195 HDL TEST 39 MG/DL 06/08/2013 Unknown LIPID GROUP 80244 TRIG 166 MG/DL 06/08/2013 Unknown LIPID GROUP 73460 TEST LDL 86 MG/DL 06/08/2013 Unknown LIPID GROUP 53648 CHOL 158 MG/DL 06/08/2013 Unknown LIPID GROUP 64457 RCHOL/HDL 4.05 RATIO 06/08/2013 Unknow n COMPREHENSIVE METABOLIC 39617 AST 17 U/L 2013 Unknown COMPREHENSIVE METABOLIC 15008 ALT 25 IU/L 2013 Unknown COMPREHENSIVE METABOLIC 34008 BUN 18 MG/DL 2013 Unknown COMPREHENSIVE METABOLIC 78430 ALBUMIN 4.5 GM/DL 2013 Unknown COMPREHENSIVE METABOLIC 23482 CHLORIDE 103 MMOL/L 06/08 Unknown COMPREHENSIVE METABOLIC 40762 BILI TOT 0.4 MG/DL 2013 Unknown COMPREHENSIVE METABOLIC 86192 ALK PHOS 72 U/L 2013 Unknown COMPREHENSIVE METABOLIC 92176 SODIUM 137 MMOL/L 06/08 Unknown COMPREHENSIVE METABOLIC 13123 CREATININE 1.07 MG/DL 08/2013 Unknown COMPREHENSIVE METABOLIC 41792 CALCIUM 9.7 MG/DL 2013 Unknown COMPREHENSIVE METABOLIC 85880 POTASSIUM 4.7 MMOL/L 06/08 Unknown COMPREHENSIVE METABOLIC 39735 PROT TOT 6.6 GM/DL 2013 Unknown COMPREHENSIVE METABOLIC 51081 Glucose 130 MG/DL 2013 Unknown COMPREHENSIVE METABOLIC 71702 BICARB 25 MMOL/L 2013 Unknown COMPREHENSIVE METABOLIC 31841 ANION GAP 9 MEQ/L 2013 Unknown FREE T4 06989 FREE T4 1.29 NG/DL 06/08/2013 Unknown THYROID STIMULATING HORMONE 67299 TSH 2.445 uIU/ML 06/08/2013 Unknown GFR CALC 0155794 GFR AA >60 ML/MIN 06/08/2013 Unknown GFR CALC 5814185 GFR NON-AA >60 ML/MIN 06/08/2013 Unknown COMPLETE BLOOD COUNT 2875017 WBC 8.2 10e9/L 06/09/19 14 Unknown COMPLETE BLOOD COUNT [id number] RBC 4.63 10e12/L 2013 Unknown COMPLETE BLOOD COUNT 1360207 HGB 14.1 g/dL 4 Unknown COMPLETE BLOOD COUNT 5752710 HCT DET 42.6 % 4 Unknown COMPLETE BLOOD COUNT 1896933 MCV 92.0 fL 4 Unknown COMPLETE BLOOD COUNT 7723595 MCH 30.5 pg 4 Unknown COMPLETE BLOOD COUNT 2479091 MCHC 33.1 g/dL 4 Unknown COMPLETE BLOOD COUNT 0531102 PLT 222 10e9/L 06/09/19 14 Unknown COMPLETE BLOOD COUNT 7673804 MPV 10.8 fL 4 Unknown COMPLETE BLOOD COUNT 3543422 SAMIR % 60.8 % 4 Unknown COMPLETE BLOOD COUNT 5111791 LY % 29.2 % 4 Unknown COMPLETE BLOOD COUNT 7397481 MON % 7.6 % 4 Unknown COMPLETE BLOOD COUNT [id number] EOS % 2.3 % 4 Unknown COMPLETE BLOOD COUNT 7187732 BASO % 0.1 % 4 Unknown COMPLETE BLOOD COUNT 9846910 RDW 13.7 % 4 Unknown COMPLETE BLOOD COUNT 1755553 ABS SAMIR 4.99 10e9/L 014 Unknown COMPLETE BLOOD COUNT 0196507 ABS LYMPH 2.39 10e9/L 014 Unknown COMPLETE BLOOD COUNT 0120752 ABS MONO 0.62 10e9/L 014 Unknown COMPLETE BLOOD COUNT 7169751 ABS EOS 0.19 10e9/L 014 Unknown COMPLETE BLOOD COUNT 1277666 ABS BASO 0.01 10e9/L 014 Unknown COMPLETE BLOOD COUNT 4709121 RDW-SD 45.2 fL 4 Unknown LIPID GROUP 55304 HDL TEST 40 MG/DL 11/11/2012 Unknown LIPID GROUP 38923 TRIG 153 MG/DL 11/11/2012 Unknown LIPID GROUP 17894 TEST LDL 71 MG/DL 11/11/2012 Unknown LIPID GROUP 31767 CHOL 142 MG/DL 11/11/2012 Unknown LIPID GROUP 50971 RCHOL/HDL 3.55 RATIO 11/11/2012 Unknow n GFR CALC 8913352 GFR AA >60 ML/MIN 11/11/2012 Unknown GFR CALC 4506806 GFR NON-AA 57.0L ML/MIN 11/11/2012 Unkno wn HEMOGLOBIN A1C (GLYCOSYLATED) 4547779 A1C HPLC 27209-8 5.9 % 11/11/2012 Unknown THYROID STIMULATING HORMONE 85746 TSH 2.439 uIU/ML 11/11/2012 Unknown COMPLETE BLOOD COUNT 4138030 WBC 8.5 10e9/L 11/12/19 13 Unknown COMPLETE BLOOD COUNT 2432888 RBC 4.42 10e12/L 2012 Unknown COMPLETE BLOOD COUNT 1316603 HGB 13.7 g/dL 3 Unknown COMPLETE BLOOD COUNT 1160132 HCT DET 41.3 % 3 Unknown COMPLETE BLOOD COUNT 6365983 MCV 93.4 fL 3 Unknown COMPLETE BLOOD COUNT 7081807 MCH 31.0 pg 3 Unknown COMPLETE BLOOD COUNT 2501871 MCHC 33.2 g/dL 3 Unknown COMPLETE BLOOD COUNT 5562124 PLT 220 10e9/L 11/12/19 13 Unknown COMPLETE BLOOD COUNT 5178748 MPV 10.8 fL 3 Unknown COMPLETE BLOOD COUNT 9725890 SAMIR % 60.4 % 3 Unknown COMPLETE BLOOD COUNT 7664945 LY % 28.7 % 3 Unknown COMPLETE BLOOD COUNT 9027444 MON % 8.0 % 3 Unknown COMPLETE BLOOD COUNT 3261796 EOS % 2.8 % 3 Unknown COMPLETE BLOOD COUNT 2838602 BASO % 0.1 % 3 Unknown COMPLETE BLOOD COUNT 7662937 RDW 13.7 % 3 Unknown COMPLETE BLOOD COUNT 6740536 ABS ASMIR 5.13 10e9/L 013 Unknown COMPLETE BLOOD COUNT [id number] ABS LYMPH 2.44 10e9/L 013 Unknown COMPLETE BLOOD COUNT 4015194 ABS MONO 0.68 10e9/L 013 Unknown COMPLETE BLOOD COUNT 1748049 ABS EOS 0.24 10e9/L 013 Unknown COMPLETE BLOOD COUNT 0488420 ABS BASO 0.01 10e9/L 013 Unknown COMPLETE BLOOD COUNT 7447531 RDW-SD 45.6 fL 3 Unknown COMPREHENSIVE METABOLIC 50467 AST 19 U/L 2012 Unknown COMPREHENSIVE METABOLIC 38164 ALT 28 IU/L 2012 Unknown COMPREHENSIVE METABOLIC 01001 BUN 31 MG/DL 2012 Unknown COMPREHENSIVE METABOLIC 12380 ALBUMIN 4.7 GM/DL 2012 Unknown COMPREHENSIVE METABOLIC 58863 CHLORIDE 106 MMOL/L 11/11 Unknown COMPREHENSIVE METABOLIC 50339 BILI TOT 0.5 MG/DL 2012 Unknown COMPREHENSIVE METABOLIC 26356 ALK PHOS 64 U/L 2012 Unknown COMPREHENSIVE METABOLIC 59067 SODIUM 136 MMOL/L 11/11 Unknown COMPREHENSIVE METABOLIC 08398 CREATININE 1.27 MG/DL 11/2012 Unknown COMPREHENSIVE METABOLIC 12252 CALCIUM 9.4 MG/DL 2012 Unknown COMPREHENSIVE METABOLIC 48828 POTASSIUM 4.9 MMOL/L 11/11 Unknown COMPREHENSIVE METABOLIC 88551 PROT TOT 6.7 GM/DL 2012 Unknown COMPREHENSIVE METABOLIC 99970 Glucose 108 MG/DL 2012 Unknown COMPREHENSIVE METABOLIC 05716 BICARB 21 MMOL/L 2012 Unknown COMPREHENSIVE METABOLIC 13168 ANION GAP 9 MEQ/L 2012 Unknown THYROID STIMULATING HORMONE 13580 TSH 2.572 uIU/ML 05/04/2012 Unknown COMPLETE BLOOD COUNT 7984512 WBC 9.3 10e9/L 05/04/19 13 Unknown COMPLETE BLOOD COUNT [id number] RBC 4.43 10e12/L 2012 Unknown COMPLETE BLOOD COUNT [id number] HGB 14.2 g/dL 3 Unknown COMPLETE BLOOD COUNT 3193559 HCT DET 41.1 % 3 Unknown COMPLETE BLOOD COUNT 8840572 MCV 92.8 fL 3 Unknown COMPLETE BLOOD COUNT 9985829 MCH 32.1 pg 3 Unknown COMPLETE BLOOD COUNT 3472409 MCHC 34.5 g/dL 3 Unknown COMPLETE BLOOD COUNT 1689903 PLT 193 10e9/L 05/04/19 13 Unknown COMPLETE BLOOD COUNT 7196951 MPV 10.8 fL 3 Unknown COMPLETE BLOOD COUNT 9304343 SAMIR % 63.0 % 3 Unknown COMPLETE BLOOD COUNT 8124015 LY % 25.3 % 3 Unknown COMPLETE BLOOD COUNT 0194649 MON % 9.1 % 3 Unknown COMPLETE BLOOD COUNT 8789665 EOS % 2.5 % 3 Unknown COMPLETE BLOOD COUNT 6692455 BASO % 0.1 % 3 Unknown COMPLETE BLOOD COUNT 8856180 RDW 12.6 % 3 Unknown COMPLETE BLOOD COUNT 0729624 ABS SAMIR 5.86 10e9/L 013 Unknown COMPLETE BLOOD COUNT [id number] ABS LYMPH 2.35 10e9/L 013 Unknown COMPLETE BLOOD COUNT 6784615 ABS MONO 0.85 10e9/L 013 Unknown COMPLETE BLOOD COUNT 7339055 ABS EOS 0.23 10e9/L 013 Unknown COMPLETE BLOOD COUNT [id number] ABS BASO 0.01 10e9/L 013 Unknown COMPLETE BLOOD COUNT [id number] RDW-SD 41.2 fL 3 Unknown LIPID GROUP 41906 HDL TEST 35 MG/DL 05/04/2012 Unknown LIPID GROUP 88923 TRIG 236 MG/DL 05/04/2012 Unknown LIPID GROUP 37648 TEST LDL 64 MG/DL 05/04/2012 Unknown LIPID GROUP 08817 CHOL 146 MG/DL 05/04/2012 Unknown LIPID GROUP 93357 RCHOL/HDL 4.17 RATIO 05/04/2012 Unknow n COMPREHENSIVE METABOLIC 87248 AST 23 U/L 2012 Unknown COMPREHENSIVE METABOLIC 40480 ALT 33 IU/L 2012 Unknown COMPREHENSIVE METABOLIC 60803 BUN 16 MG/DL 2012 Unknown COMPREHENSIVE METABOLIC 87789 ALBUMIN 4.8 GM/DL 2012 Unknown COMPREHENSIVE METABOLIC 15018 CHLORIDE 104 MMOL/L 05/04 Unknown COMPREHENSIVE METABOLIC 37034 BILI TOT 0.5 MG/DL 2012 Unknown COMPREHENSIVE METABOLIC 11522 ALK PHOS 70 U/L 2012 Unknown COMPREHENSIVE METABOLIC 34227 SODIUM 138 MMOL/L 05/04 Unknown COMPREHENSIVE METABOLIC 53809 CREATININE 1.08 MG/DL 04/07 Unknown COMPREHENSIVE METABOLIC 84010 CALCIUM 9.7 MG/DL 2012 Unknown COMPREHENSIVE METABOLIC 55629 POTASSIUM 4.4 MMOL/L 05/04 Unknown COMPREHENSIVE METABOLIC 68835 PROT TOT 6.8 GM/DL 2012 Unknown COMPREHENSIVE METABOLIC 31250 Glucose 114 MG/DL 2012 Unknown COMPREHENSIVE METABOLIC 96898 BICARB 27 MMOL/L 2012 Unknown COMPREHENSIVE METABOLIC 39479 ANION GAP 7 MEQ/L 2012 Unknown FREE T4 51997 FREE T4 1.11 NG/DL 05/04/2012 Unknown GFR CALC 3350476 GFR AA >60 ML/MIN 05/04/2012 Unknown GFR CALC 9262346 GFR NON-AA >60 ML/MIN 05/04/2012 Unknown GLYCOSYLATED HEMOGLOBIN TEST 04596 A1C HPLC 52109-6 5.8 % 0 10/29/2011 Unknown COMPREHENSIVE METABOLIC 88605 AST 17 U/L 2011 Unknown COMPREHENSIVE METABOLIC 78521 ALT 21 IU/L 2011 Unknown COMPREHENSIVE METABOLIC 06104 BUN 17 MG/DL 2011 Unknown COMPREHENSIVE METABOLIC 03003 ALBUMIN 4.8 GM/DL 2011 Unknown COMPREHENSIVE METABOLIC 24808 CHLORIDE 106 MMOL/L 10/28 Unknown COMPREHENSIVE METABOLIC 83394 BILI TOT 0.6 MG/DL 2011 Unknown COMPREHENSIVE METABOLIC 03169 ALK PHOS 57 U/L 2011 Unknown COMPREHENSIVE METABOLIC 12843 SODIUM 139 MMOL/L 10/28 Unknown COMPREHENSIVE METABOLIC 09514 CREATININE 1.08 MG/DL 10/05 Unknown COMPREHENSIVE METABOLIC 66333 CALCIUM 9.6 MG/DL 2011 Unknown COMPREHENSIVE METABOLIC 19781 POTASSIUM 4.4 MMOL/L 10/28 Unknown COMPREHENSIVE METABOLIC 28573 PROT TOT 6.9 GM/DL 2011 Unknown COMPREHENSIVE METABOLIC 39128 Glucose 104 MG/DL 2011 Unknown COMPREHENSIVE METABOLIC 31406 BICARB 25 MMOL/L 2011 Unknown COMPREHENSIVE METABOLIC 46485 ANION GAP 8 MEQ/L 2011 Unknown LIPID GROUP 62664 HDL TEST 39 MG/DL 10/29/2011 Unknown LIPID GROUP 01287 TRIG 176 MG/DL 10/29/2011 Unknown LIPID GROUP 72441 TEST LDL 70 MG/DL 10/29/2011 Unknown LIPID GROUP 38591 CHOL 144 MG/DL 10/29/2011 Unknown LIPID GROUP 55658 RCHOL/HDL 3.69 RATIO 10/29/2011 Unknow n GFR CALC 9700185 GFR AA >60 ML/MIN 10/29/2011 Unknown GFR CALC 6080919 GFR NON-AA >60 ML/MIN 10/29/2011 Unknown GFR CALC 1692206 GFR AA >60 ML/MIN 03/14/2011 Unknown GFR CALC 5594459 GFR NON-AA >60 ML/MIN 03/14/2011 Unknown GLYCOSYLATED HEMOGLOBIN TEST 76512 A1C HPLC 08173-3 5.7 % 1 05/15/2010 Unknown COMPREHENSIVE METABOLIC 82199 AST 18 U/L 2010 Unknown COMPREHENSIVE METABOLIC 89655 ALT 25 IU/L 2010 Unknown COMPREHENSIVE METABOLIC 81408 BUN 15 MG/DL 2010 Unknown COMPREHENSIVE METABOLIC 81213 ALBUMIN 4.6 GM/DL 2010 Unknown COMPREHENSIVE METABOLIC 87351 CHLORIDE 107 MMOL/L 03/14 Unknown COMPREHENSIVE METABOLIC 50514 BILI TOT 0.6 MG/DL 2010 Unknown COMPREHENSIVE METABOLIC 58929 ALK PHOS 54 U/L 2010 Unknown COMPREHENSIVE METABOLIC 28212 SODIUM 140 MMOL/L 03/14 Unknown COMPREHENSIVE METABOLIC 38642 CREATININE 1.02 MG/DL 12/2010 Unknown COMPREHENSIVE METABOLIC 95799 CALCIUM 9.4 MG/DL 2010 Unknown COMPREHENSIVE METABOLIC 68699 POTASSIUM 4.6 MMOL/L 03/14 Unknown COMPREHENSIVE METABOLIC 13813 PROT TOT 7.0 GM/DL 2010 Unknown COMPREHENSIVE METABOLIC 29646 Glucose 107 MG/DL 2010 Unknown COMPREHENSIVE METABOLIC 95193 BICARB 28 MMOL/L 2010 Unknown COMPREHENSIVE METABOLIC 37598 ANION GAP 5 MEQ/L 2010 Unknown LIPID GROUP 56136 HDL TEST 39 MG/DL 03/14/2011 Unknown LIPID GROUP 82614 TRIG 157 MG/DL 03/14/2011 Unknown LIPID GROUP 62006 TEST LDL 66 MG/DL 03/14/2011 Unknown LIPID GROUP 47609 CHOL 136 MG/DL 03/14/2011 Unknown LIPID GROUP 57257 RCHOL/HDL 3.49 RATIO 03/14/2011 Unknow n GFR CALC 0713054 GFR AA >60 ML/MIN 11/11/2010 Unknown GFR CALC 5005665 GFR NON-AA >60 ML/MIN 11/11/2010 Unknown LIPID GROUP 83539 HDL TEST 39 MG/DL 11/11/2010 Unknown LIPID GROUP 26930 TRIG 212 MG/DL 11/11/2010 Unknown LIPID GROUP 80761 TEST LDL 67 MG/DL 11/11/2010 Unknown LIPID GROUP 85153 CHOL 148 MG/DL 11/11/2010 Unknown LIPID GROUP 08480 RCHOL/HDL 3.79 RATIO 11/11/2010 Unknow n COMPREHENSIVE METABOLIC 92215 AST 17 U/L 2010 Unknown COMPREHENSIVE METABOLIC 08704 ALT 21 IU/L 2010 Unknown COMPREHENSIVE METABOLIC 39124 BUN 16 MG/DL 2010 Unknown COMPREHENSIVE METABOLIC 32631 ALBUMIN 4.6 GM/DL 2010 Unknown COMPREHENSIVE METABOLIC 17056 CHLORIDE 106 MMOL/L 11/11 Unknown COMPREHENSIVE METABOLIC 27742 BILI TOT 0.5 MG/DL 2010 Unknown COMPREHENSIVE METABOLIC 04395 ALK PHOS 61 U/L 2010 Unknown COMPREHENSIVE METABOLIC 89782 SODIUM 139 MMOL/L 11/11 Unknown COMPREHENSIVE METABOLIC 85333 CREATININE 1.00 MG/DL 11/2010 Unknown COMPREHENSIVE METABOLIC 79446 CALCIUM 9.5 MG/DL 2010 Unknown COMPREHENSIVE METABOLIC 02420 POTASSIUM 4.5 MMOL/L 11/11 Unknown COMPREHENSIVE METABOLIC 43439 PROT TOT 6.9 GM/DL 2010 Unknown COMPREHENSIVE METABOLIC 05203 Glucose 111 MG/DL 2010 Unknown COMPREHENSIVE METABOLIC 08685 BICARB 26 MMOL/L 2010 Unknown COMPREHENSIVE METABOLIC 02020 ANION GAP 7 MEQ/L 2010 Unknown HEMOGLOBIN A1C (GLYCOSYLATED) 04035 A1C [facility] 71906-9 5.6 % 07/24/2010 Unknown GFR CALC 6336693 GFR AA >60 ML/MIN 07/23/2010 Unknown GFR CALC 5875163 GFR NON-AA >60 ML/MIN 07/23/2010 Unknown COMPREHENSIVE METABOLIC 63322 AST 19 U/L 2010 Unknown COMPREHENSIVE METABOLIC 41218 ALT 33 IU/L 2010 Unknown COMPREHENSIVE METABOLIC 10673 BUN 14 MG/DL 2010 Unknown COMPREHENSIVE METABOLIC 60238 ALBUMIN 4.7 GM/DL 2010 Unknown COMPREHENSIVE METABOLIC 20914 CHLORIDE 107 MMOL/L 07/23 Unknown COMPREHENSIVE METABOLIC 61146 BILI TOT 0.4 MG/DL 2010 Unknown COMPREHENSIVE METABOLIC 72502 ALK PHOS 80 U/L 2010 Unknown COMPREHENSIVE METABOLIC 07335 SODIUM 141 MMOL/L 07/23 Unknown COMPREHENSIVE METABOLIC 51165 CREATININE 0.97 MG/DL 07/05 Unknown COMPREHENSIVE METABOLIC 24797 CALCIUM 9.5 MG/DL 2010 Unknown COMPREHENSIVE METABOLIC 77395 POTASSIUM 4.1 MMOL/L 07/23 Unknown COMPREHENSIVE METABOLIC 98656 PROT TOT 6.8 GM/DL 2010 Unknown COMPREHENSIVE METABOLIC 06866 Glucose 120 MG/DL 2010 Unknown COMPREHENSIVE METABOLIC 33664 BICARB 26 MMOL/L 2010 Unknown COMPREHENSIVE METABOLIC 00368 ANION GAP 8 MEQ/L 2010 Unknown LIPID GROUP 53852 HDL TEST 41 MG/DL 07/23/2010 Unknown LIPID GROUP 90923 TRIG 175 MG/DL 07/23/2010 Unknown LIPID GROUP 05352 TEST LDL 72 MG/DL 07/23/2010 Unknown LIPID GROUP 78567 CHOL 148 MG/DL 07/23/2010 Unknown LIPID GROUP 42038 RCHOL/HDL 3.61 RATIO 07/23/2010 Unknow n PSA FREE AND TOTAL 66836|05568 % FREE PSA FOOTNOTE % 011 Unknown PSA FREE AND TOTAL 37877|65656 XPSA TOTAL 0.83 NG/ML 011 Unknown PSA FREE AND TOTAL 33670|26446 XPSA FREE 0.13 NG/ML 04/26/19 11 Unknown VITAMIN D TOTAL (25 HYDROXY) 62765 VIT D TOTL 26 NG/ML 04/22/2010 Unknown TESTOSTERONE TOTAL 13216 TESTOS TO 387 NG/DL 04/19/2010 Unknown GFR CALC 8395203 GFR AA >60 ML/MIN 04/19/2010 Unknown GFR CALC 8795667 GFR NON-AA >60 ML/MIN 04/19/2010 Unknown COMPLETE BLOOD COUNT 42563 WBC 7.0 10e9/L 04/19/19 11 Unknown COMPLETE BLOOD COUNT 13330 RBC 5.07 10e12/L 2010 Unknown COMPLETE BLOOD COUNT 44753 HGB 15.6 g/dL 1 Unknown COMPLETE BLOOD COUNT 02369 HCT DET 46.2 % 1 Unknown COMPLETE BLOOD COUNT 80868 MCV 91.1 fL 1 Unknown COMPLETE BLOOD COUNT 62239 MCH 30.8 pg 1 Unknown COMPLETE BLOOD COUNT 11500 MCHC 33.8 g/dL 1 Unknown COMPLETE BLOOD COUNT 10842 PLT 205 10e9/L 04/19/19 11 Unknown COMPLETE BLOOD COUNT 55459 MPV 11.1 fL 1 Unknown COMPLETE BLOOD COUNT 26876 SAMIR % 62.4 % 1 Unknown COMPLETE BLOOD COUNT 23361 LY % 28.5 % 1 Unknown COMPLETE BLOOD COUNT 88719 MON % 6.9 % 1 Unknown COMPLETE BLOOD COUNT 31332 EOS % 2.1 % 1 Unknown COMPLETE BLOOD COUNT 41277 BASO % 0.1 % 1 Unknown COMPLETE BLOOD COUNT 66574 RDW 13.4 % 1 Unknown COMPLETE BLOOD COUNT 88445 ABS SAMIR 4.37 10e9/L 011 Unknown COMPLETE BLOOD COUNT 72205 ABS LYMPH 2.00 10e9/L 011 Unknown COMPLETE BLOOD COUNT 42143 ABS MONO 0.48 10e9/L 011 Unknown COMPLETE BLOOD COUNT 37356 ABS EOS 0.15 10e9/L 011 Unknown COMPLETE BLOOD COUNT 66595 ABS BASO 0.01 10e9/L 011 Unknown COMPLETE BLOOD COUNT 29567 RDW-SD 43.8 fL 1 Unknown LIPID GROUP 31529 HDL TEST 39 MG/DL 04/19/2010 Unknown LIPID GROUP 62122 TRIG 244 MG/DL 04/19/2010 Unknown LIPID GROUP 07669 TEST LDL 168 MG/DL 04/19/2010 Unknown LIPID GROUP 12234 CHOL 256 MG/DL 04/19/2010 Unknown LIPID GROUP 71979 RCHOL/HDL 6.56 RATIO 04/19/2010 Unknow n COMPREHENSIVE METABOLIC 18612 AST 28 U/L 2010 Unknown COMPREHENSIVE METABOLIC 77427 ALT 46 IU/L 2010 Unknown COMPREHENSIVE METABOLIC 98588 BUN 14 MG/DL 2010 Unknown COMPREHENSIVE METABOLIC 16079 ALBUMIN 4.9 GM/DL 2010 Unknown COMPREHENSIVE METABOLIC 49898 CHLORIDE 104 MMOL/L 04/19 Unknown COMPREHENSIVE METABOLIC 55000 BILI TOT 0.8 MG/DL 2010 Unknown COMPREHENSIVE METABOLIC 48260 ALK PHOS 71 U/L 2010 Unknown COMPREHENSIVE METABOLIC 83631 SODIUM 139 MMOL/L 04/19 Unknown COMPREHENSIVE METABOLIC 18234 CREATININE 1.06 MG/DL 04/06 Unknown COMPREHENSIVE METABOLIC 59720 CALCIUM 9.9 MG/DL 2010 Unknown COMPREHENSIVE METABOLIC 85503 POTASSIUM 4.3 MMOL/L 04/19 Unknown COMPREHENSIVE METABOLIC 55729 PROT TOT 7.2 GM/DL 2010 Unknown COMPREHENSIVE METABOLIC 35647 Glucose 99 MG/DL 2010 Unknown COMPREHENSIVE METABOLIC 63032 BICARB 28 MMOL/L 2010 Unknown COMPREHENSIVE METABOLIC 75273 ANION GAP 7 MEQ/L 2010 Unknown FREE T4 90819 FREE T4 1.26 NG/DL 04/19/2010 Unknown Procedures Procedure Codes Date ROUTINE VENIPUNCTURE CPT-4: 88558 05/24/2019 COMPREHEN METABOLIC PANEL CPT-4: 65120 05/24/2019 A1C HPLC CPT-4: 27212 05/24/2019 FLU VACC PRSV FREE INC ANTIG 65 AND OLDER CPT-4: 10943 01/26/2019 FLU VACC PRSV FREE INC ANTIG 65 AND OLDER CPT-4: 99844 01/26/2019 ADMIN INFLUENZA VIRUS VAC CPT-4: G0008 01/26/2019 ROUTINE VENIPUNCTURE CPT-4: 73222 01/26/2019 COMPREHEN METABOLIC PANEL CPT-4: 14831 01/26/2019 COMPLETE CBC W/AUTO DIFF WBC CPT-4: 08510 01/26/2019 LIPID PANEL CPT-4: 75405 01/26/2019 A1C HPLC CPT-4: 82161 01/26/2019 ROUTINE VENIPUNCTURE CPT-4: 06971 09/30/2018 METABOLIC PANEL TOTAL CA CPT-4: 76672 09/30/2018 URINALYSIS NONAUTO W/O SCOPE CPT-4: 43860 08/19/2018 URINE CULTURE/ COLONY COUNT CPT-4: 57023 08/19/2018 MICROALBUMIN QUANTITATIVE CPT-4: 55540 08/19/2018 ROUTINE VENIPUNCTURE CPT-4: 11505 08/16/2018 ASSAY THYROID STIM HORMONE CPT-4: 81721 08/16/2018 COMPREHEN METABOLIC PANEL CPT-4: 19302 08/16/2018 COMPLETE CBC W/AUTO DIFF WBC CPT-4: 53736 08/16/2018 LIPID PANEL CPT-4: 89185 08/16/2018 A1C HPLC CPT-4: 00624 08/16/2018 LIPID PANEL CPT-4: 72151 05/05/2018 COMPREHEN METABOLIC PANEL CPT-4: 41267 05/05/2018 ROUTINE VENIPUNCTURE CPT-4: 79580 05/05/2018 A1C HPLC CPT-4: 86477 05/05/2018 COMPLETE CBC W/AUTO DIFF WBC CPT-4: 96493 05/05/2018 ASSAY THYROID STIM HORMONE CPT-4: 08991 05/05/2018 MICROALBUMIN QUANTITATIVE CPT-4: 54229 01/19/2018 PRESCRIP TRANSMIT VIA ERX SY CPT-4: G8553 01/19/2018 ROUTINE VENIPUNCTURE CPT-4: 02561 01/13/2018 COMPREHEN METABOLIC PANEL CPT-4: 67979 01/13/2018 A1C HPLC CPT-4: 63395 01/13/2018 LIPID PANEL CPT-4: 81185 01/13/2018 ASSAY OF PSA TOTAL CPT-4: 60978 01/13/2018 ASSAY THYROID STIM HORMONE CPT-4: 59228 01/13/2018 ROUTINE VENIPUNCTURE CPT-4: 53614 10/06/2017 COMPREHEN METABOLIC PANEL CPT-4: 52280 10/06/2017 COMPLETE CBC W/AUTO DIFF WBC CPT-4: 72701 10/06/2017 LIPID PANEL CPT-4: 40805 10/06/2017 A1C HPLC CPT-4: 41457 10/06/2017 VITAMIN B-12 CPT-4: 21018 10/06/2017 DESTRUCT PREMALG LESION (Cryosurgery) CPT-4: 81156 DESTRUCT PREMALG LES 2-14 CPT-4: 72463 04/23/2017 PRESCRIP TRANSMIT VIA ERX SY CPT-4: G8553 03/11/2017 ROUTINE VENIPUNCTURE CPT-4: 38757 03/05/2017 ASSAY OF FREE THYROXINE CPT-4: 92594 03/05/2017 ASSAY THYROID STIM HORMONE CPT-4: 72347 03/05/2017 COMPREHEN METABOLIC PANEL CPT-4: 22004 03/05/2017 COMPLETE CBC W/AUTO DIFF WBC CPT-4: 12704 03/05/2017 LIPID PANEL CPT-4: 54781 03/05/2017 A1C HPLC CPT-4: 05533 03/05/2017 ROUTINE VENIPUNCTURE CPT-4: 51950 06/16/2016 ASSAY OF FREE THYROXINE CPT-4: 57926 06/16/2016 ASSAY THYROID STIM HORMONE CPT-4: 70858 06/16/2016 COMPREHEN METABOLIC PANEL CPT-4: 14738 06/16/2016 COMPLETE CBC W/AUTO DIFF WBC CPT-4: 50727 06/16/2016 LIPID PANEL CPT-4: 14833 06/16/2016 A1C HPLC CPT-4: 84433 06/16/2016 ROUTINE VENIPUNCTURE CPT-4: 27502 03/06/2016 ASSAY OF FREE THYROXINE CPT-4: 64791 03/06/2016 ASSAY THYROID STIM HORMONE CPT-4: 07668 03/06/2016 COMPREHEN METABOLIC PANEL CPT-4: 35070 03/06/2016 COMPLETE CBC W/AUTO DIFF WBC CPT-4: 73737 03/06/2016 LIPID PANEL CPT-4: 35058 03/06/2016 A1C HPLC CPT-4: 79142 03/06/2016 PRESCRIP TRANSMIT VIA ERX SY CPT-4: G8553 09/10/2015 PNEUMOCOCCAL VACC 23 ROSANNE IM CPT-4: 18125 09/06/2015 ADMIN PNEUMOCOCCAL VACCINE CPT-4: G0009 09/06/2015 ROUTINE VENIPUNCTURE CPT-4: 88723 08/31/2015 COMPREHEN METABOLIC PANEL CPT-4: 74119 08/31/2015 COMPLETE CBC W/AUTO DIFF WBC CPT-4: 86410 08/31/2015 LIPID PANEL CPT-4: 09011 08/31/2015 ASSAY OF PSA TOTAL CPT-4: 34905 08/31/2015 A1C HPLC CPT-4: 15522 08/31/2015 ASSAY OF FREE THYROXINE CPT-4: 09093 08/31/2015 ASSAY THYROID STIM HORMONE CPT-4: 95165 08/31/2015 PRESCRIP TRANSMIT VIA ERX SY CPT-4: G8553 06/29/2015 FLU VACC PRSV FREE INC ANTIG 65 AND OLDER CPT-4: 90985 01/17/2015 PNEUMOCOCCAL VACC 13 ROSANNE IM CPT-4: 21424 01/17/2015 ADMIN INFLUENZA VIRUS VAC CPT-4: G0008 01/17/2015 ADMIN PNEUMOCOCCAL VACCINE CPT-4: G0009 01/17/2015 DESTRUCT PREMALG LESION (Cryosurgery) CPT-4: 43445 PRESCRIP TRANSMIT VIA ERX SY CPT-4: G8553 01/17/2015 ROUTINE VENIPUNCTURE CPT-4: 98488 01/12/2015 COMPREHEN METABOLIC PANEL CPT-4: 60657 01/12/2015 COMPLETE CBC W/AUTO DIFF WBC CPT-4: 13924 01/12/2015 LIPID PANEL CPT-4: 79718 01/12/2015 A1C HPLC CPT-4: 16501 01/12/2015 DESTRUCT PREMALG LESION (Cryosurgery) CPT-4: 99358 ROUTINE VENIPUNCTURE CPT-4: 80794 08/15/2014 COMPREHEN METABOLIC PANEL CPT-4: 04678 08/15/2014 COMPLETE CBC W/AUTO DIFF WBC CPT-4: 60779 08/15/2014 LIPID PANEL CPT-4: 91236 08/15/2014 A1C HPLC CPT-4: 54773 08/15/2014 ASSAY OF PSA TOTAL CPT-4: 01803 08/15/2014 ASSAY OF FREE THYROXINE CPT-4: 30264 08/15/2014 ASSAY THYROID STIM HORMONE CPT-4: 05427 08/15/2014 ROUTINE VENIPUNCTURE CPT-4: 43926 12/14/2013 ASSAY OF FREE THYROXINE CPT-4: 23201 12/14/2013 ASSAY THYROID STIM HORMONE CPT-4: 19901 12/14/2013 COMPREHEN METABOLIC PANEL CPT-4: 10459 12/14/2013 COMPLETE CBC W/AUTO DIFF WBC CPT-4: 65415 12/14/2013 LIPID PANEL CPT-4: 32010 12/14/2013 A1C HPLC CPT-4: 69167 12/14/2013 ROUTINE VENIPUNCTURE CPT-4: 55486 06/08/2013 ASSAY OF FREE THYROXINE CPT-4: 78370 06/08/2013 ASSAY THYROID STIM HORMONE CPT-4: 00927 06/08/2013 COMPREHEN METABOLIC PANEL CPT-4: 83540 06/08/2013 COMPLETE CBC W/AUTO DIFF WBC CPT-4: 80592 06/08/2013 LIPID PANEL CPT-4: 88945 06/08/2013 A1C HPLC CPT-4: 27771 06/08/2013 ROUTINE VENIPUNCTURE CPT-4: 80771 11/11/2012 COMPREHEN METABOLIC PANEL CPT-4: 62232 11/11/2012 COMPLETE CBC W/AUTO DIFF WBC CPT-4: 32287 11/11/2012 LIPID PANEL CPT-4: 33725 11/11/2012 A1C GLYCOSYLATED HEMOGLOBIN TEST CPT-4: 54220 013 ASSAY THYROID STIM HORMONE CPT-4: 71577 11/11/2012 ROUTINE VENIPUNCTURE CPT-4: 05156 05/04/2012 ASSAY OF FREE THYROXINE CPT-4: 86458 05/04/2012 ASSAY THYROID STIM HORMONE CPT-4: 45252 05/04/2012 COMPREHEN METABOLIC PANEL CPT-4: 52803 05/04/2012 COMPLETE CBC W/AUTO DIFF WBC CPT-4: 67064 05/04/2012 LIPID PANEL CPT-4: 88961 05/04/2012 DESTRUCT PREMALG LESION (Cryosurgery) CPT-4: 24192 DESTRUCT PREMALG LES 2-14 CPT-4: 80281 03/02/2012 ROUTINE VENIPUNCTURE CPT-4: 88879 10/29/2011 COMPREHEN METABOLIC PANEL CPT-4: 83916 10/29/2011 LIPID PANEL CPT-4: 90649 10/29/2011 A1C GLYCOSYLATED HEMOGLOBIN TEST CPT-4: 86577 012 ROUTINE VENIPUNCTURE CPT-4: 46369 07/29/2011 COMPREHEN METABOLIC PANEL CPT-4: 31433 07/29/2011 LIPID PANEL CPT-4: 29810 07/29/2011 A1C GLYCOSYLATED HEMOGLOBIN TEST CPT-4: 02983 012 ROUTINE VENIPUNCTURE CPT-4: 60157 03/14/2011 COMPREHEN METABOLIC PANEL CPT-4: 64492 03/14/2011 LIPID PANEL CPT-4: 81475 03/14/2011 A1C GLYCOSYLATED HEMOGLOBIN TEST CPT-4: 53682 011 ROUTINE VENIPUNCTURE CPT-4: 87237 11/11/2010 COMPREHEN METABOLIC PANEL CPT-4: 01532 11/11/2010 LIPID PANEL CPT-4: 52876 11/11/2010 URINE CULTURE/ COLONY COUNT CPT-4: 77424 11/11/2010 URINALYSIS NONAUTO W/O SCOPE CPT-4: 96316 10/29/2010 URINE CULTURE/ COLONY COUNT CPT-4: 11845 10/29/2010 LIPID PANEL CPT-4: 82610 07/23/2010 COMPREHEN METABOLIC PANEL CPT-4: 78363 07/23/2010 ROUTINE VENIPUNCTURE CPT-4: 87249 07/23/2010 ROUTINE VENIPUNCTURE CPT-4: 43763 04/26/2010 PSA FREE AND TOTAL CPT-4: 98398|11049 04/26/2010 OCCULT BLOOD FECES CPT-4: 94028 04/24/2010 ROUTINE VENIPUNCTURE CPT-4: 68381 04/19/2010 COMPLETE CBC W/AUTO DIFF WBC CPT-4: 65409 04/19/2010 COMPREHEN METABOLIC PANEL CPT-4: 91860 04/19/2010 LIPID PANEL CPT-4: 19885 04/19/2010 TESTOSTERONE TOTAL - MALE CPT-4: 98401 04/19/2010 ASSAY THYROID STIM HORMONE CPT-4: 20257 04/19/2010 ASSAY OF FREE THYROXINE CPT-4: 72528 04/19/2010 VITAMIN D TOTAL (25 HYDROXY) CPT-4: 37032 04/19/2010 Vital Signs Date Vital 01/31/2019 Blood [...] 1: 112/70 Code: 8480-6 BMI: 28.9 Code: 53606-0 Heart Rate 1: 60 bpm Height: 6'3" Respiratory Rate: 20 bpm SpO2: 95% Tempera ture: 36.6 (C) / 97.9 (F) Weight: 231 lbs 01/19/2018 Blood Pressure 1: 150/82 Code: 8480-6 Heart Rate 1: 63 bpm Respiratory Rate: 18 bpm SpO2: 98% Temperature: 36.0 (C) / 96.8 (F) We ight: 225 lbs 10/15/2017 Blood Pressure 1: 126/82 Code: 8480-6 BMI: 27.9 Code: 81206-0 Heart Rate 1: 64 bpm Height: 6'3" Respiratory Rate: 20 bpm SpO2: 96% Tempera ture: 36.7 (C) / 98.1 (F) Weight: 223 lbs 04/23/2017 Blood Pressure 1: 136/74 Code: 8480-6 BMI: 28.7 Code: 02426-5 Heart Rate 1: 76 bpm Height: 6'3" Respiratory Rate: 20 bpm Temperature: 37 .0 (C) / 98.6 (F) Weight: 230 lbs 03/11/2017 Blood Pressure 1: 136/66 Code: 8480-6 BMI: 28.6 Code: 10956-8 Heart Rate 1: 60 bpm Height: 6'3" Respiratory Rate: 20 bpm Temperature: 36 .7 (C) / 98.1 (F) Weight: 229 lbs 07/09/2016 Blood Pressure 1: 132/80 Code: 8480-6 BMI: 27.7 Code: 99799-6 Heart Rate 1: 64 bpm Height: 6'3" Respiratory Rate: 20 bpm SpO2: 96% Tempera ture: 36.9 (C) / 98.4 (F) Weight: 222 lbs 03/10/2016 Blood Pressure 1: 134/78 Code: 8480-6 BMI: 28.5 Code: 03972-2 Heart Rate 1: 60 bpm Height: 6'3" Respiratory Rate: 20 bpm SpO2: 96% Tempera ture: 36.7 (C) / 98.1 (F) Weight: 228 lbs 09/12/2015 Blood Pressure 1: 13678 Code: 8480-6 Heart Rate 1: 84 bpm Height: Respiratory Rate: 24 bpm SpO2: 97% Temperature: 36.4 (C) / 97.6 (F) We ight: 09/10/2015 Blood Pressure 1: 124/76 Code: 8480-6 BMI: 28.5 Code: 95664-9 Heart Rate 1: 76 bpm Height: 6'3" Respiratory Rate: 24 bpm SpO2: 97% Tempera ture: 36.4 (C) / 97.6 (F) Weight: 228 lbs 09/06/2015 Blood Pressure 1: 12482 Code: 8480-6 BMI: 29.0 Code: 67411-2 Heart Rate 1: 66 bpm Height: 6'3" Respiratory Rate: 20 bpm SpO2: 97% Tempera ture: 36.4 (C) / 97.6 (F) Weight: 232 lbs 06/29/2015 Blood Pressure 1: 124/82 Code: 8480-6 Heart Rate 1: 88 bpm Height: Respiratory Rate: 20 bpm Temperature: 36.7 (C) / 98.1 (F) Weight: 01/17/2015 Blood Pressure 1: 124/78 Code: 8480-6 BMI: 27.7 Code: 49853-7 Heart Rate 1: 76 bpm Height: 6'3" Respiratory Rate: 20 bpm Temperature: 36 .6 (C) / 97.8 (F) Weight: 222 lbs 09/19/2014 Blood Pressure 1: 128/80 Code: 8480-6 BMI: 27.4 Code: 27134-6 Heart Rate 1: 64 bpm Height: 6'3" Respiratory Rate: 20 bpm Temperature: 36 .4 (C) / 97.6 (F) Weight: 219 lbs 10/17/2013 Blood Pressure 1: 116/70 Code: 8480-6 Heart Rate 1: 88 bpm Respiratory Rate: 20 bpm Temperature: 36.9 (C) / 98.4 (F) Weight: 220 lbs 09/23/2013 Blood Pressure 1: 124/80 Code: 8480-6 BMI: 28.7 Code: 85749-1 Heart Rate 1: 76 bpm Height: 6'3" Respiratory Rate: 20 bpm Temperature: 36 .8 (C) / 98.2 (F) Weight: 230 lbs 07/22/2013 Blood Pressure 1: 128/70 Code: 8480-6 He art Rate 1: 78 bpm 06/20/2013 Blood Pressure 1: 144/86 Code: 8480-6 BMI: 28.7 Code: 06347-4 Heart Rate 1: 92 bpm Height: 6'3" Respiratory Rate: 20 bpm Temperature: 36 .4 (C) / 97.6 (F) Weight: 230 lbs 11/25/2012 Blood Pressure 1: 128/80 Code: 8480-6 BMI: 27.5 Code: 21064-8 Heart Rate 1: 92 bpm Height: 6'3" Respiratory Rate: 20 bpm Temperature: 36 .8 (C) / 98.3 (F) Weight: 220 lbs 08/27/2012 Blood Pressure 1: 142/80 Code: 8480-6 BMI: 27.7 Code: 66913-1 Heart Rate 1: 76 bpm Height: 6'3" Respiratory Rate: 20 bpm Temperature: 36 .8 (C) / 98.3 (F) Weight: 222 lbs 05/11/2012 Blood Pressure 1: 136/80 Code: 8480-6 BMI: 27.7 Code: 55656-5 Heart Rate 1: 76 bpm Height: 6'3" Respiratory Rate: 20 bpm Temperature: 36 .8 (C) / 98.3 (F) Weight: 222 lbs 03/02/2012 Blood Pressure 1: 136/70 Code: 8480-6 BMI: 28.0 Code: 40263-5 Heart Rate 1: 80 bpm Height: 6'3" Respiratory Rate: 20 bpm Temperature: 36 .6 (C) / 97.8 (F) Weight: 224 lbs 12/11/2011 Blood Pressure 1: 142/80 Code: 8480-6 BMI: 27.1 Code: 87696-5 Heart Rate 1: 84 bpm Height: 6'3" Respiratory Rate: 20 bpm Temperature: 36 .9 (C) / 98.4 (F) Weight: 217 lbs 08/14/2011 Blood Pressure 1: 130/82 Code: 8480-6 He art Rate 1: 64 bpm 07/29/2011 Blood Pressure 1: 132/64 Code: 8480-6 BMI: 26.7 Code: 28452-6 Heart Rate 1: 72 bpm Height: 6'3" [...] 1: 142/88 Code: 8480-6 BMI: 26.4 Code: 36109-5 Heart Rate 1: 80 bpm Height: 6'3" [...] labs Encounters Encounter Performer Location Codes Date ([id number]) NURSE/OUTPATIENT VISIT EST Diagnosis: Type 2 diabetes mellitus without complications[ICD10: E11.9] Diagnosis: Essential (primary) hypertension[ICD10: I10] Diagnosis: Mixed hyperlipidemia[ICD10: E78.2] Najma OG [employer] [facility] CPT-4: 94780 05/24/2019 ([id number]) OFFICE/OUTPATIENT VISIT EST Diagnosis: Essential (primary) hypertension[ICD10: I10] Diagnosis: Type 2 diabetes mellitus without complications[ICD10: E11.9] Diagnosis: Mixed hyperlipidemia[ICD10: E78.2] Najma OG [employer] [facility] CPT-4: 18076 01/31/2019 ([id number]) NURSE/OUTPATIENT VISIT EST Diagnosis: Mixed hyperlipidemia[ICD10: E78.2] Diagnosis: Type 2 diabetes mellitus without complications[ICD10: E11.9] Diagnosis: Essential (primary) hypertension[ICD10: I10] Diagnosis: Chronic kidney disease, unspecified[ICD10: N18.9] Najma OG DO [facility] CPT-4: 71871 01/26/2019 ([id number]) NURSE/OUTPATIENT VISIT EST Diagnosis: Chronic kidney disease, unspecified[ICD10: N18.9] Diagnosis: Essential (primary) hypertension[ICD10: I10] Najma OG [employer] [facility] CPT-4: 95933 09/30/2018 ([id number]) OFFICE/OUTPATIENT VISIT EST Diagnosis: Essential (primary) hypertension[ICD10: I10] Diagnosis: Type 2 diabetes mellitus without complications[ICD10: E11.9] Diagnosis: Mixed hyperlipidemia[ICD10: E78.2] Diagnosis: Unspecified kidney failure[ICD10: N19] Najma HAQUE ADELA Matilda OG [employer] [facility] CPT-4: 93891 08/19/2018 ([id number]) NURSE/OUTPATIENT VISIT EST Diagnosis: Essential (primary) hypertension[ICD10: I10] Diagnosis: Type 1 diabetes mellitus with unspecified complications[ICD10: E10.8] Diagnosis: Mixed hyperlipidemia[ICD10: E78.2] Najma OG [employer] [facility] CPT-4: 65678 08/16/2018 ([id number]) OFFICE/OUTPATIENT VISIT EST Diagnosis: Essential (primary) hypertension[ICD10: I10] Diagnosis: Type 2 diabetes mellitus without complications[ICD10: E11.9] Diagnosis: Mixed hyperlipidemia[ICD10: E78.2] Najma OG [employer] CPT-4: 33999 05/10/2018 ([id number]) NURSE/OUTPATIENT VISIT EST Diagnosis: Essential (primary) hypertension[ICD10: I10] Diagnosis: Mixed hyperlipidemia[ICD10: E78.2] Diagnosis: Type 1 diabetes mellitus with unspecified complications[ICD10: E10.8] Najma OG DO [employer] CPT-4: 51190 05/05/2018 ([id number]) OFFICE/OUTPATIENT VISIT EST Diagnosis: Type 2 diabetes mellitus without complications[ICD10: E11.9] Diagnosis: Mixed hyperlipidemia[ICD10: E78.2] Diagnosis: Nicotine dependence, unspecified, uncomplicated[ICD10: F17.200] Diagnosis: Essential (primary) hypertension[ICD10: I10] Najma OG [employer] CPT-4: 01874 01/19/2018 ([id number]) NURSE/OUTPATIENT VISIT EST Diagnosis: Type 1 diabetes mellitus with unspecified complications[ICD10: E10.8] Diagnosis: Essential (primary) hypertension[ICD10: I10] Diagnosis: Male erectile disorder[ICD10: F52.21] Diagnosis: Encounter for screening for malignant neoplasm of prostate[ICD10: Z12.5] Najma OG [employer] CPT-4: 46780 01/13/2018 ([id number]) OFFICE/OUTPATIENT VISIT EST Diagnosis: Type 2 diabetes mellitus without complications[ICD10: E11.9] Diagnosis: Essential (primary) hypertension[ICD10: I10] Diagnosis: Mixed hyperlipidemia[ICD10: E78.2] Najma OG [employer] CPT-4: 50066 10/15/2017 ([id number]) NURSE/OUTPATIENT VISIT EST Diagnosis: Type 2 diabetes mellitus without complications[ICD10: E11.9] Diagnosis: Mixed hyperlipidemia[ICD10: E78.2] Diagnosis: Essential (primary) hypertension[ICD10: I10] Diagnosis: Glossitis[ICD10: K14.0] Najma THAKKAR [employer] CPT-4: 35893 10/06/2017 ([id number]) OFFICE/OUTPATIENT VISIT EST Diagnosis: Type 2 diabetes mellitus without complications[ICD10: E11.9] Diagnosis: Mixed hyperlipidemia[ICD10: E78.2] Diagnosis: Essential (primary) hypertension[ICD10: I10] Najma OG [employer] CPT-4: 37524 03/11/2017 ([id number]) OFFICE/OUTPATIENT VISIT EST Diagnosis: Type 1 diabetes mellitus with unspecified complications[ICD10: E10.8] Diagnosis: Mixed hyperlipidemia[ICD10: E78.2] Diagnosis: Essential (primary) hypertension[ICD10: I10] Diagnosis: Other fatigue[ICD10: R53.83] Najma OG [employer] CPT-4: 81263 03/05/2017 ([id number]) OFFICE/OUTPATIENT VISIT EST Diagnosis: Type 2 diabetes mellitus without complications[ICD10: E11.9] Diagnosis: Mixed hyperlipidemia[ICD10: E78.2] Diagnosis: Essential (primary) hypertension[ICD10: I10] Diagnosis: Nicotine dependence, unspecified, uncomplicated[ICD10: F17.200] Najma OG [employer] CPT-4: 42417 07/09/2016 ([id number]) OFFICE/OUTPATIENT VISIT EST Diagnosis: Type 1 diabetes mellitus with unspecified complications[ICD10: E10.8] Diagnosis: Mixed hyperlipidemia[ICD10: E78.2] Diagnosis: Essential (primary) hypertension[ICD10: I10] Najma OG [employer] CPT-4: 55402 06/16/2016 ([id number]) OFFICE/OUTPATIENT VISIT EST Diagnosis: Type 2 diabetes mellitus without complications[ICD10: E11.9] Diagnosis: Mixed hyperlipidemia[ICD10: E78.2] Diagnosis: Essential (primary) hypertension[ICD10: I10] Najma OG [employer] CPT-4: 94089 03/10/2016 ([id number]) OFFICE/OUTPATIENT VISIT EST Diagnosis: Type 1 diabetes mellitus with unspecified complications[ICD10: E10.8] Diagnosis: Mixed hyperlipidemia[ICD10: E78.2] Diagnosis: Essential (primary) hypertension[ICD10: I10] Najma OG [employer] [facility] CPT-4: 62541 03/06/2016 ([id number]) OFFICE/OUTPATIENT VISIT EST Diagnosis: Bitten or stung by nonvenomous insect and other nonvenomous arthropods, subsequent encounter[ICD10: W57.XXXD] Diagnosis: Insect bite (nonvenomous), right thigh, subsequent encounter[ICD10: S70.361D] Barbara Brower NAJMA Matilda LONG [employer] [facility] CPT-4: 52974 11/2015 ([id number]) OFFICE/OUTPATIENT VISIT EST Diagnosis: Bitten or stung by nonvenomous insect and other nonvenomous arthropods, initial encounter[ICD10: W57.XXXA] Diagnosis: Insect bite (nonvenomous), right thigh, initial encounter[ICD10: S70.361A] Barbara Brower NAJMA AmeenaMatilde MERCEDES [employer] [facility] CPT-4: 64503 09/2015 ([id number]) OFFICE/OUTPATIENT VISIT EST Diagnosis: Mixed hyperlipidemia[ICD10: E78.2] Diagnosis: Essential (primary) hypertension[ICD10: I10] Diagnosis: Type 2 diabetes mellitus without complications[ICD10: E11.9] Diagnosis: Encounter for immunization[ICD10: Z23] Diagnosis: Encounter for screening for malignant neoplasm of colon[ICD10: Z12.11] Diagnosis: Abnormal weight gain[ICD10: R63.5] Barbara Brower ANUM GODINEZ Matilda LONG [employer] [facility] CPT-4: 13476 09/06/2015 ([id number]) OFFICE/OUTPATIENT VISIT EST Diagnosis: Type 2 diabetes mellitus without complications[ICD10: E11.9] Diagnosis: Mixed hyperlipidemia[ICD10: E78.2] Diagnosis: Essential (primary) hypertension[ICD10: I10] Diagnosis: Encounter for screening for malignant neoplasm of prostate[ICD10: Z12.5] Diagnosis: Other fatigue[ICD10: R53.83] Najma MCARTHUR AmeenaMatilde MERCEDES [employer] [facility] CPT-4: 85587 08/31/2015 OFFICE/OUTPATIENT VISIT EST Diagnosis: Diarrhea, unspecified[ICD10: R19.7] Henrietta MCCOY [employer] [facility] CPT-4: 85042 06/29/2015 OFFICE/OUTPATIENT VISIT EST Diagnosis: PNEUMOCOCCAL VACCINE[ICD10: Z23] Diagnosis: FLU VACCINE[ICD10: Z23] Diagnosis: Essential (primary) hypertension[ICD10: I10] Diagnosis: Mixed hyperlipidemia[ICD10: E78.2] Diagnosis: Type 1 diabetes mellitus with unspecified complications[ICD10: E10.8] Diagnosis: Actinic keratosis[ICD10: L57.0] Najma MANUELLINE Matilda OG [employer] [facility] CPT-4: 72695 01/17/2015 ([id number]) OFFICE/OUTPATIENT VISIT EST Diagnosis: Type 2 diabetes mellitus without complications[ICD10: E11.9] Diagnosis: Impaired fasting glucose[ICD10: R73.01] Diagnosis: Mixed hyperlipidemia[ICD10: E78.2] Diagnosis: Essential (primary) hypertension[ICD10: I10] Najma Heverlane NAJMA Matilda OG [employer] CPT-4: 93920 01/12/2015 ([id number]) OFFICE/OUTPATIENT VISIT EST Diagnosis: - I - HYPERLIPIDEMIA NEC/NOS[ICD9: 272.4] Diagnosis: HYPERTENSION[ICD9: 401.9] Diagnosis: DM W/O COMPLICATION TYPE II[ICD9: 250.00] Diagnosis: ACTINIC KERATOSIS[ICD9: 702.0] Najma Heverlane MCARTHUR Ameena Clayton [employer] CPT-4: 46436 09/19/2014 ([id number]) OFFICE/OUTPATIENT VISIT EST Diagnosis: HYPERLIPIDEMIA NEC/NOS[ICD9: 272.4] Diagnosis: HYPERTENSION[ICD9: 401.9] Diagnosis: IMPAIRED FASTING GLUCOSE[ICD9: 790.21] Diagnosis: MALAISE AND FATIGUE[ICD9: 780.79] Najma Jenkins Matilda [facility] CPT-4: 97826 08/15/2014 ([id number]) OFFICE/OUTPATIENT VISIT EST Diagnosis: HYPERLIPIDEMIA NEC/NOS[ICD9: 272.4] Diagnosis: HYPERTENSION[ICD9: 401.9] Diagnosis: IMPAIRED FASTING GLUCOSE[ICD9: 790.21] Najma CHAPMAN Matilda [employer] CPT-4: 91883 12/14/2013 ([id number]) OFFICE/OUTPATIENT VISIT EST Diagnosis: Post herpetic neuralgia[ICD9: 053.19] Najma Kathleenpepperbijan OG [employer] [facility] CPT-4: 14075 10/17/2013 OFFICE/OUTPATIENT VISIT EST Diagnosis: Shingles[ICD9: 053.9] Diagnosis: Post herpetic neuralgia[ICD9: 053.19] [facility] 76053 09/23/2013 ([id number]) OFFICE/OUTPATIENT VISIT EST Diagnosis: HYPERTENSION[ICD9: 401.9] Diagnosis: HYPERLIPIDEMIA NEC/NOS[ICD9: 272.4] Diagnosis: IMPAIRED FASTING GLUCOSE[ICD9: 790.21] [facility]ajma [facility]pepperbijan [facility]: 08339 06/20/2013 ([id number]) OFFICE/OUTPATIENT VISIT EST Diagnosis: HYPERLIPIDEMIA NEC/NOS[ICD9: 272.4] Diagnosis: MALAISE AND FATIGUE[ICD9: 780.79] Diagnosis: ROUTINE MEDICAL EXAM[ICD9: V70.0] Diagnosis: HYPERTENSION[ICD9: 401.9] Diagnosis: IMPAIRED FASTING GLUCOSE[ICD9: 790.21] Najma Heverpepperbijan ABBOTTQ ADELA LONG [employer] [facility] CPT-4: 69330 06/08/2013 ([id number]) OFFICE/OUTPATIENT VISIT EST Diagnosis: HYPERLIPIDEMIA NEC/NOS[ICD9: 272.4] Diagnosis: HYPERTENSION[ICD9: 401.9] Diagnosis: IMPAIRED FASTING GLUCOSE[ICD9: 790.21] Diagnosis: DIARRHEA[ICD9: 787.91] Najma MCARTHUR AmeenaMatilde BRITTNI Stallings [employer] [facility] CPT-4: 97037 11/25/2012 ([id number]) OFFICE/OUTPATIENT VISIT EST Diagnosis: HYPERLIPIDEMIA NEC/NOS[ICD9: 272.4] Diagnosis: HYPERTENSION[ICD9: 401.9] Diagnosis: IMPAIRED FASTING GLUCOSE[ICD9: 790.21] Diagnosis: MALAISE AND FATIGUE[ICD9: 780.79] Najma Jenkins Matilda LONG [employer] [facility] CPT-4: 50557 11/11/2012 OFFICE/OUTPATIENT VISIT EST Diagnosis: Fungal dermatitis[ICD9: 111.9] Diagnosis: Dry skin dermatitis[ICD9: 692.89] Henrietta Sow-Fernandez FILI OG DO [facility] CPT-4: 19508 08/27/2012 ([id number]) OFFICE/OUTPATIENT VISIT EST Diagnosis: HYPERTENSION[ICD9: 401.9] Diagnosis: HYPERLIPIDEMIA NEC/NOS[ICD9: 272.4] Najma OG DO [facility] CPT-4: 58023 05/11/2012 ([id number]) OFFICE/OUTPATIENT VISIT EST Diagnosis: HYPERLIPIDEMIA NEC/NOS[ICD9: 272.4] Diagnosis: HYPERTENSION[ICD9: 401.9] Diagnosis: ROUTINE MEDICAL EXAM[ICD9: V70.0] Najma OG DO [facility] CPT-4: 79261 05/04/2012 ([id number]) OFFICE/OUTPATIENT VISIT EST Diagnosis: HYPERTENSION[ICD9: 401.9] Diagnosis: HYPERLIPIDEMIA NEC/NOS[ICD9: 272.4] Diagnosis: IMPAIRED FASTING GLUCOSE[ICD9: 790.21] Najma OG DO [facility] CPT-4: 20799 12/11/2011 ([id number]) OFFICE/OUTPATIENT VISIT EST Diagnosis: HYPERLIPIDEMIA NEC/NOS[ICD9: 272.4] Diagnosis: HYPERTENSION[ICD9: 401.9] Diagnosis: IMPAIRED FASTING GLUCOSE[ICD9: 790.21] Najma OG DO [facility] CPT-4: 62449 10/29/2011 ([id number]) OFFICE/OUTPATIENT VISIT EST Diagnosis: HYPERTENSION[ICD9: 401.9] Najma PAYAN DO [facility] CPT-4: 05976 08/14/2011 ([id number]) OFFICE/OUTPATIENT VISIT EST Diagnosis: HYPERTENSION[ICD9: 401.9] Diagnosis: IMPAIRED FASTING GLUCOSE[ICD9: 790.21] Najma KATHLEENNDBIJAN WADE [facility] CPT-4: 42439 07/29/2011 ([id number]) OFFICE/OUTPATIENT VISIT EST Diagnosis: HYPERTENSION[ICD9: 401.9] Najma ZARATER [facility] CPT-4: 15124 07/23/2011 ([id number]) OFFICE/OUTPATIENT VISIT EST Diagnosis: HYPERTENSION[ICD9: 401.9] Najma ZARATER [facility] CPT-4: 66568 06/24/2011 OFFICE/OUTPATIENT VISIT EST Diagnosis: HYPERTENSION[ICD9: 401.9] Najma ZARATER DO [facility] CPT-4: 82319 05/20/2011 OFFICE/OUTPATIENT VISIT EST Diagnosis: HYPERTENSION[ICD9: 401.9] Najma KATHLEEN NDER DO [facility] CPT-4: 78765 04/15/2011 OFFICE/OUTPATIENT VISIT EST Diagnosis: HYPERLIPIDEMIA NEC/NOS[ICD9: 272.4] Diagnosis: IMPAIRED FASTING GLUCOSE[ICD9: 790.21] Najma KATHLEENNDER [facility] CPT-4: 47430 03/18/2011 ([id number]) OFFICE/OUTPATIENT VISIT EST Najma LONGER [facility] CPT-4: 76193 07/30/2010 ([id number]) PREV VISIT, EST, AGE 40-64 Najma OG DO [facility] CPT-4: 45684 04/24/2010 Plan of Care Planned Activity Notes [...] : I10 01/31/2019 Appointment: Najma Og WPtel: [address] [place], [place] [id number] [place] FOLLOW UP 01/31/2019 Appointment[facility] [phone] [facility] [facility] 01/26/2019 Appointment: Najma Og WPtel: [address] [place], [place] [phone] [place] LAB 09/30/2018 Visit Diagnosis Plan: Unspecified [...] : E11.9 08/19/2018 Appointment: Najma Og WPtel: [address] [place] [address] US FOLLOW UP 08/19/2018 Appointment: Najma Og WPtel: [address] [place] [address] [place] LAB 08/16/2018 Visit Diagnosis Plan: Type [...] : I10 05/10/2018 Appointment: Najma Og WPtel: [address] [place], [place] [phone] [place] FOLLOW UP 05/10/2018 Patient Education: Low Back Pain Exercises: Illustration Completed 05/10/2018 Patient Education: Low Back Pain Exercises Completed 05/10/2018 Appointment: Najma Og WPtel: [address] [place], [place] [phone] [place] LAB 05/05/2018 Visit Diagnosis Plan: Type [...] : E78.2 01/19/2018 Appointment: Najma Og WPtel: [address] [place] [address] FOLLOW UP 01/19/2018 Patient Education: Patient Medication Summary Completed 01/19/2018 Appointment: Najma Og WPtel: [address] [place], [place] [phone] [place] LAB 01/13/2018 Patient Education: Patient Medication [...] : E78.2 10/15/2017 Appointment: Najma Og WPtel: [address] [place] [phone] [place] FOLLOW UP 10/15/2017 Patient Education: Patient Medication Summary Completed 10/15/2017 Appointment: Najma Og WPtel: [address] [place], [place] [phone] [place] LAB 10/06/2017 Patient Education: Patient Medication Summary Completed 10/06/2017 Visit Diagnosis Plan: Actinic keratosis Discussion: Cr yotherapy as above ICD-9 : 702.0 ICD-10 : L57.0 04/23/2017 Appointment: Najma Og WPtel: [address] [place], [place] [phone] OFFICE SURGERY 04/23/2017 Patient Education: Patient Medication [...] : E11.9 03/11/2017 Appointment: Najma Og WPtel: [address] [place], [place] [phone] [place] FOLLOW UP 03/11/2017 Patient Education: Patient Medication Summary Completed 03/11/2017 Appointment: Najma Og WPtel: [address] [place] [phone] [place] LAB 03/05/2017 Patient Education: Patient Medication [...] : E78.2 07/09/2016 Appointment: Najma Og WPtel: [address] [place], [place] [phone] [place] 07/08 lm ~sl 07/09 confirmed~sl FOLLOW UP 08/2016 Patient Education: Patient Medication Summary Completed 07/09/2016 Appointment: Najma Og WPtel: [address] [place], [place] [phone] [place] LAB 06/16/2016 Patient Education: Patient Medication Summary Completed 06/16/2016 Visit Plan: Lab discussed Accuchecks maribel ly Lifestyle change for 3mos then check CMP, HbA1C in 3mos Has had flu and pneumonia shot 03/10/2016 Appointment: Najma Og WPtel: [address] [place], [place] [phone] 03/06 confirmed `sl FOLLOW UP 03/10/2016 Patient Education: Patient Medication Summary Completed 03/10/2016 Appointment: Najma Og WPtel: [address] [place], [place] [phone] LAB 03/06/2016 Patient Education: Patient Medication Summary Completed 03/06/2016 Referral: Donavon Keller WPtel: [address] [place] [address] Bleacher Report [id number] Referral Completed 10/22/2015 Visit Plan: Tick bite area looks much be tter Continue current rxs and close monitoring Follow up if any new symptoms or worsening appearance 09/12/2015 Appointment: Barbara Brower [address] [place], [place] [phone] 09/10 confirmed~sl FOLLOW UP 09/12/2015 Patient Education: Patient Medication Summary Completed 09/12/2015 Visit Plan: Cover as above 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 topical steroids to calm down the inflammation(suspect most of redness is due to histamine response vs infection) Monitor closely Follow up in 2 days to recheck 09/10/2015 Appointment: Barbara Brower [address] [place] [address] ACUTE ILLNESS 09/10/2015 Patient Education: Patient Medication [...] [id number] [facility] FOLLOW UP 09/06/2015 Patient Education: Patient Medication Summary Completed 09/06/2015 Care Plan: Referral Order SNOMED-CT : [id number] Pending 09/06/2015 Appointment: Najma Og WPtel: [address] [place], [place] [phone] [place] LAB 08/31/2015 Patient Education: Patient Medication [...] UC/ER. 06/29/2015 Appointment: Henrietta Lubin WPtel: [address] [place], [place] [phone] ACUTE ILLNESS 06/29/2015 Patient Education: Patient Medication Summary Completed 06/29/2015 Visit Plan: Lab discussed Will keep meds the same Discussed diet/exercise at length Cryotherapy as above to AKs of arms Flu and Prevnar 13 given Trial of revatio per patient request for ED--warned of no nitrates Recheck 4mos 01/17/2015 Appointment: Najma Og WPtel: [address] [place] [phone] [place] 01/16 confirmed~sl FOLLOW UP 01/17/2015 Patient Education: Patient Medication Summary Completed 01/17/2015 Appointment: Najma Og WPtel: [address] [place] [phone] US LAB 01/12/2015 Patient Education: Patient Medication Summary Completed 01/12/2015 Visit Plan: Lab discussed Start accuchec ks daily Cryotherapy as above 09/19/2014 Appointment: Najma Og WPtel: [address] 09/18 confirmed -mf FOLLOW UP 09/19/2014 Patient Education: Patient Medication Summary Completed 09/19/2014 Appointment: Najma Og WPtel: [address] [place] [phone] [place] LAB 08/15/2014 Patient Education: Patient Medication Summary Completed 08/15/2014 Appointment: Najma Og WPtel: [address] [place] [address] ACUTE ILLNESS 12/14/2013 Patient Education: Patient Medication Summary Completed 12/14/2013 Visit Plan: Patient using tylenol prn pa in Discussed possible shingles shot for booster in 9-12mos 10/17/2013 Appointment: Najma Og WPtel: [address] [place] [address] FOLLOW UP 10/17/2013 Patient Education: Patient Medication Summary Completed 10/17/2013 Appointment: Jeanie Briceño WPtel: [address] [place] [address] ACUTE ILLNESS 09/23/2013 Patient Education: Patient Medication Summary Completed 09/23/2013 Appointment: Najma Og WPtel: [address] [place] [address] BP CHECK 07/22/2013 Patient Education: Patient Medication Summary Completed 07/22/2013 Visit Plan: Lab discussed Discussed swit arun amlodopine to beta slim to see if helps with tremor BP check in 1mo 06/20/2013 Appointment: Najma Og WPtel: [address] [place] [address] 06/17 no answer FOLLOW UP 06/20/2013 Patient Education: Patient Medication Summary Completed 06/20/2013 Appointment: Najma Og WPtel: [address] [place] [phone] [place] LAB 06/08/2013 Patient Education: Patient Medication Summary Completed 06/08/2013 Visit Plan: BRAT diet and yogurt and gat orade Lab discussed Continue current meds Spot checks on BS 11/25/2012 Appointment: Najma Og WPtel: [address] [place] [phone] 11/24 FOLLOW UP 11/25/2012 Patient Education: Patient Medication Summary Completed 11/25/2012 Appointment: Najma Og WPtel: [address] [place], [place] [phone] LAB 11/11/2012 Patient Education: Patient Medication Summary Completed 11/11/2012 Appointment: Henrietta Lubin WPtel: [address] [place], [place] [phone] WORK IN 08/27/2012 Patient Education: Patient Medication Summary Completed 08/27/2012 Visit Plan: Pt going to get new home BP moniter Continue crestor and restart fish oil and will check fasting lab in 6mos Lab results discussed 05/11/2012 Appointment: Najma Og WPtel: [address] [place] [phone] 05/10 FOLLOW UP 05/11/2012 Patient Education: Patient Medication Summary Completed 05/11/2012 Appointment: Najma Og WPtel: [address] [place] [phone] LAB 05/04/2012 Patient Education: Patient Medication Summary Completed 05/04/2012 Visit Plan: 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 and forehead 03/02/2012 Appointment: Najma Og WPtel: [address] [place] [phone] 03/01 OFFICE SURGERY 03/02/2012 Patient Education: Patient Medication Summary Completed 03/02/2012 Visit Plan: Labs discussed--recheck lab end of Nov/ of Mar Continue current meds and continue to moniter BS daily and BP 1-2 times a week Plan on cryotherapy this fall so can wear longsleeves after procedure See urology 12/11/2011 Appointment: Najma Og WPtel: [address] [place], [place] [phone] [place] FOLLOW UP 12/11/2011 Patient Education: Patient Medication Summary Completed 12/11/2011 Appointment: Najma Og WPtel: [address] [place] [phone] LAB 10/29/2011 Patient Education: Patient Medication Summary Completed 10/29/2011 Appointment: Najma Og WPtel: [address] [place], [place] [phone] BP CHECK 08/14/2011 Patient Education: Patient Medication Summary Completed 08/14/2011 Appointment: Najma Og WPtel: [address] [place] [address] ACUTE ILLNESS 07/29/2011 Patient Education: Patient Medication Summary Completed 07/29/2011 Appointment: Najma Og WPtel: [address] [place] [address] BP CHECK 07/23/2011 Patient Education: Patient Medication Summary Completed 07/23/2011 Appointment: Najma Og WPtel: [address] [place] [address] BP CHECK 06/24/2011 Patient Education: Patient Medication Summary Completed 06/24/2011 Appointment: Najma Og WPtel: [address] [place] [address] BP CHECK 05/20/2011 Patient Education: Patient Medication Summary Completed 05/20/2011 Appointment: Najma Og WPtel: [address] [place] [address] [place] BP CHECK 04/29/2011 Patient Education: Patient Medication Summary Completed 04/29/2011 Appointment: Najma Og WPtel: [address] [place] [address] BP CHECK 04/15/2011 Patient Education: Patient Medication Summary Completed 04/15/2011 Visit Plan: Continue current meds Add fi sh oil 1gm daily Glucometer given to use for accuchecks prn 03/18/2011 Appointment: Najma Ogtel: [address] [place], [place] [phone] FOLLOW UP 03/18/2011 Patient Education: Patient Medication Summary Completed 03/18/2011 Appointment: Najma Og WPtel: [address] [place], [place] [phone] US LAB 03/14/2011 Patient Education: Patient Medication Summary Completed 03/14/2011 Appointment: Najma Og WPtel: [address] [place], [place] [phone] [place] LAB 11/11/2010 Appointment: Najma Og WPtel: [address] [place], [place] [phone] [place] UA 11/11/2010 Patient Education: Patient Medication Summary Completed 11/11/2010 Appointment: Najma Og WPtel: [address] [place], [place] [phone] [place] LAB 10/29/2010 Patient Education: Patient Medication Summary Completed 10/29/2010 Appointment: Najma Og WPtel: [address] [place], [place] [phone] [place] FOLLOW UP 07/30/2010 Patient Education: Patient Medication Summary Completed 07/30/2010 Appointment: Najma Og WPtel: [address] [place], [place] [phone] [place] LAB 07/23/2010 Patient Education: Patient Medication Summary Completed 07/23/2010 Appointment: Najma Ogtel: [address] [place], [place] [phone] [place] LAB 04/26/2010 Patient Education: Patient Medication Summary Completed 04/26/2010 Visit Plan: Add PSA to lab Restart Crest or at 10mg daily Trial of Wellbutrin to aid in smoking cessation Check Lipids and LFTs in 3mos 04/24/2010 [facility]ment[id number] FOLLOW UP 04/24/2010 Patient Education: Patient Medication Summary Completed 04/24/2010 [facility]ment[phone] [facility] [id number] LAB 04/19/2010 Patient Education: Patient Medication Summary Completed 04/19/2010 Referral: Donavon Keller WPtel: [address] [facility] Bleacher Report [id number] [place] Referral Completed Instructions Comment . Lab [...] conservative + labs. CBC & CMP at [facility] Discussed needed oral hydration (preferably with [...]
--- OUTSIDE RECORDS SUMMARY | 2019-10-14 22:55 | XMS REPORT | CCD ---
Author Author Inocente Og D.O. Organization 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 PP Unavailable CCM Unavailable Summary Purpose Interface Exchange Insurance Providers Payer name Policy type / Coverage type Covered constitution party ID Effective Begin Date Effective End Date [employer] MEDICARE Medicare Part B [id number] Unknown [facility] Medicare Part B [id number] Un known Family history Father Diagnosis Age At Onset Diabetes mellitus Type 2 Unknown Myocardial infarction Unknown Brother Diagnosis Age At Onset Diabetes mellitus Type 2 Unknown Mother Diagnosis Age At Onset Osteoarthritis Unknown Cerebrovascular disease Unknown Social History Social History Element Codes Description Effective Dates Tobacco history SNOMED CT: 463590626 Never smoker 12/21/2014 Marital status Unknown 07/30/2010 [...] Active Mixed hyperlipidemia ICD-9: 272.2 ICD-10: E78.2 01/31/2019 Active Type 2 diabetes mellitus without complications [...] Instructions fenofibrate micronized 134 mg capsule RxNorm: 590494 1 Capsule(s) Oral QD for triglycerides 04/14/2019 07/13/2019 Active amlodipine 5 mg tablet RxNorm: 021220 TAKE 1 TABLET BY MOUTH ON CE DAILY 03/22/2019 06/19/2019 Active metformin ER 500 mg tablet,extended release 24 hr RxNorm: 86 0975 TAKE 1 TABLET BY MOUTH ONCE DAILY 03/15/2019 No Stop Date Active propranolol ER 80 mg capsule,24 hr,extended release RxNorm: 330458 TAKE 1 CAPSULE BY MOUTH ONCE DAILY 03/15/2019 No Stop Date Active amlodipine 5 mg tablet RxNorm: 456315 1 Tablet(s) PO QD 12/27/2018 Inactive fenofibrate micronized 134 mg capsule RxNorm: 592409 TA KE 1 CAPSULE BY MOUTH ONCE DAILY FOR TRIGLYCERIDES 10/11/2018 04/13/2019 Inactive amlodipine 5 mg tablet RxNorm: 096563 1 Tablet(s) PO QD 09/30/2018 Inactive metformin ER 500 mg tablet,extended release 24 hr RxNorm: 86 0975 TAKE 1 TABLET BY MOUTH ONCE DAILY 09/21/2018 03/14/2019 Inactive propranolol ER 80 mg capsule,24 hr,extended release RxNorm: 118050 TAKE 1 CAPSULE BY MOUTH ONCE DAILY 09/21/2018 03/14/2019 Inactive amlodipine 5 mg tablet RxNorm: 171086 1 Tablet(s) PO QD 08/25/2018 Inactive amlodipine 5 mg tablet RxNorm: 683193 1 Tablet(s) PO QD 08/25/2018 Inactive lisinopril 40 mg tablet RxNorm: 254200 TAKE 1 TABLET BY MOUTH O NCE DAILY 07/21/2018 08/24/2018 Inactive fenofibrate micronized 134 mg capsule RxNorm: 908608 TA KE 1 CAPSULE BY MOUTH ONCE DAILY FOR TRIGLYCERIDES 07/12/2018 10/10/2018 Inactive propranolol ER 80 mg capsule,24 hr,extended release RxNorm: 179700 TAKE 1 CAPSULE BY MOUTH ONCE DAILY 06/21/2018 09/20/2018 Inactive lisinopril 40 mg tablet RxNorm: 465926 TAKE 1 TABLET BY MOUTH O NCE DAILY 04/26/2018 07/20/2018 Inactive metformin ER 500 mg tablet,extended release 24 hr RxNorm: 592614 1 Tablet(s) QD 03/31/2018 09/20/2018 Inactive lisinopril 40 mg tablet RxNorm: 508483 TAKE 1 TABLET BY MOUTH O NCE DAILY 01/28/2018 04/25/2018 Inactive Vitamin D3 5,000 unit tablet RxNorm: 810676 1 Tablet(s) PO QD 01/1908/18/2018 Inactive fenofibrate micronized 134 mg capsule RxNorm: 928304 1 Capsule(s) PO QD for triglycerides 01/19/2018 07/11/2018 Inactive metformin ER 500 mg tablet,extended release 24 hr RxNorm: 354851 1 Tablet(s) QD 12/31/2017 03/30/2018 Inactive metformin ER 500 mg tablet,extended release 24 hr RxNorm: 418046 Tablet(s) 12/30/2017 12/30/2017 Inactive propranolol ER 80 mg capsule,24 hr,extended release RxNorm: 644430 1 Capsule(s) PO QD 12/17/2017 06/14/2018 Inactive metformin ER 500 mg tablet,extended release 24 hr RxNorm: 86 0975 1 Tablet(s) PO QD DUE FOR LABS AND APPT 12/02/2017 12/30/2017 Inactive Crestor 10 mg tablet RxNorm: 280565 TAKE ONE TABLET BY MOUTH ON CE DAILY 11/01/2017 01/18/2018 Inactive lisinopril 40 mg tablet RxNorm: 873383 TAKE ONE TABLET BY MOUTH ONCE DAILY [...] ER 80 mg capsule,24 hr,extended release RxNorm: 617172 1 Capsule(s) PO QD DUE FOR APPT 09/08/2017 12/17/2017 Inactive Crestor 10 mg tablet RxNorm: 817619 1 Tablet(s) PO QD T CHELSI ONE TABLET BY MOUTH DAILY 03/11/2017 09/06/2017 Inactive propranolol ER 80 mg capsule,24 hr,extended release RxNorm: 506761 1 Capsule(s) PO QD TAKE ONE CAPSULE BY MOUTH DAILY - REPLACES AMLODOPINE 03/11/2017 09/08/2017 Inactive metformin ER 500 mg tablet,extended release 24 hr RxNorm: 86 0975 1 Tablet(s) PO QD 03/11/2017 09/08/2017 Inactive lisinopril 40 mg tablet RxNorm: 565240 1 Tablet(s) PO QD 03/11/2017 0 09/06/2017 Inactive lisinopril 40 mg tablet RxNorm: 649605 1 Tablet(s) PO QD 02/16/2017 1 05/11/2016 Inactive metformin ER 500 mg tablet,extended release 24 hr RxNorm: 86 0975 1 Tablet(s) PO QD Due for labs and follow up before further refills 02/16/2017 017 Inactive propranolol ER 80 mg capsule,24 hr,extended release RxNorm: 041583 Capsule(s) TAKE ONE CAPSULE BY MOUTH DAILY - REPLACES AMLODOPINE 11/19/20162016 Inactive lisinopril 40 mg tablet RxNorm: 256430 1 Tablet(s) PO QD 11/17/2016 1 04/18/2016 Inactive metformin ER 500 mg tablet,extended release 24 hr RxNorm: 86 0975 1 Tablet(s) PO QD 11/17/2016 02/16/2017 Inactive lisinopril 40 mg tablet RxNorm: 319355 1 Tablet(s) PO Q D TAKE ONE TABLET BY MOUTH DAILY 08/19/2016 11/17/2016 Inactive metformin ER 500 mg tablet,extended release 24 hr RxNorm: 86 0975 Tablet(s) TAKE ONE TABLET BY MOUTH DAILY 08/19/2016 11/16/2016 Inactive propranolol ER 80 mg capsule,24 hr,extended release RxNorm: 496320 Capsule(s) TAKE ONE CAPSULE BY MOUTH DAILY - REPLACES AMLODOPINE 08/19/20162016 Inactive Crestor 10 mg tablet RxNorm: 248081 TAKE ONE TABLET BY MOUTH DAILY 06/16/2016 03/10/2017 Inactive lisinopril 40 mg tablet RxNorm: 351897 1 Tablet(s) PO Q D TAKE ONE TABLET BY MOUTH DAILY 05/23/2016 08/18/2016 Inactive metformin ER 500 mg tablet,extended release 24 hr RxNorm: 86 0975 TAKE ONE TABLET BY MOUTH DAILY 05/23/2016 08/19/2016 Inactive propranolol ER 80 mg capsule,24 hr,extended release RxNorm: 311616 TAKE ONE CAPSULE BY MOUTH DAILY - REPLACES AMLODOPINE 05/23/2016 08/19/2016 [place] [facility] Crestor 10 mg tablet RxNorm: 117855 TAKE ONE TABLET BY MOUTH DAILY 03/31/2016 06/15/2016 Inactive metformin ER 500 mg tablet,extended release 24 hr RxNorm: 86 0975 TAKE ONE TABLET BY MOUTH DAILY 02/19/2016 05/22/2016 Inactive propranolol ER 80 mg capsule,24 hr,extended release RxNorm: 161592 TAKE ONE CAPSULE BY MOUTH DAILY - REPLACES AMLODOPINE 11/23/2015 05/20/2016 [place] [facility] metformin ER 500 mg tablet,extended release 24 hr RxNorm: 86 0975 TAKE ONE TABLET BY MOUTH DAILY 11/08/2015 02/05/2016 Inactive Bactroban Nasal 2 % ointment RxNorm: 371475 Apply topic ally to affected area twice daily 09/10/2015 03/09/2016 Inactive Vibramycin 100 mg capsule RxNorm: 002523 1 Capsule(s) PO BID 201509/23/2015 Inactive lisinopril 40 mg tablet RxNorm: 751687 1 Tablet(s) PO Q D TAKE ONE TABLET BY MOUTH DAILY 08/27/2015 02/22/2016 Inactive metformin ER 500 mg tablet,extended release 24 hr RxNorm: 86 0975 TAKE ONE TABLET BY MOUTH DAILY 08/06/2015 11/03/2015 Inactive Levsin/SL 0.125 mg sublingual tablet RxNorm: 3678824 1 T ablet(s) SL Q4H as needed for stomach cramps 06/29/2015 07/03/2015 Inactive lisinopril 40 mg tablet RxNorm: 171090 Tablet(s) TAKE ONE TABLE T BY MOUTH DAILY 06/07/2015 08/26/2015 Inactive propranolol ER 80 mg capsule,24 hr,extended release RxNorm: 077462 TAKE ONE CAPSULE BY MOUTH DAILY - REPLACES AMLODOPINE 05/30/2015 11/22/2015 [place] [facility] metformin ER 500 mg tablet,extended release 24 hr RxNorm: 86 0975 1 Tablet(s) PO QD 05/10/2015 08/05/2015 Inactive Crestor 10 mg tablet RxNorm: 879765 TAKE ONE TABLET BY MOUTH DAILY 04/18/2015 10/14/2015 Inactive metformin ER 500 mg tablet,extended release 24 hr RxNorm: 86 0975 TAKE ONE TABLET BY MOUTH DAILY 02/07/2015 05/10/2015 Inactive sildenafil 20 mg tablet RxNorm: 792888 1 Tablet(s) PO QD 01/17/2015 1 04/17/2014 Inactive propranolol ER 80 mg capsule,24 hr,extended release RxNorm: 719012 1 Capsule(s) PO QD replaces amlodopine 11/28/2014 05/26/2015 Inactive [SALINASIN GS FOR UNINSURED PATIENTS -- BIN:[id number], PCN: [id number], Group: [id number], ID# [id number], Process claim through [employer], for questions: . THIS IS NOT INSURANCE.] lisinopril 40 mg tablet RxNorm: 449887 TAKE ONE TABLET BY MOUTH DAILY 11/16/2014 06/07/2015 Inactive lisinopril 40 mg tablet RxNorm: 468103 1 Tablet(s) PO QD 08/21/2014 0 11/15/2014 Inactive [AttnRPh: Saving apply/adjudicate RxGRP: [id number] RxBIN:[id number] RxPCN: ID#:[id number]] lisinopril 40 mg tablet RxNorm: 677411 1 Tablet(s) PO Q D NEEDS SEEN FOR APPOINTMENT 07/14/2014 08/21/2014 Inactive [AttnRPh: Saving apply/adjudicate RxGRP:SG20 RxBIN:[id number] RxPCN: ID#:[id number]] Crestor 10 mg tablet RxNorm: 299280 TAKE ONE TABLET BY MOUTH 07/06/2014 01/01/2015 Inactive metformin ER 500 mg tablet,extended release 24 hr RxNorm: 86 0975 1 Tablet(s) QD TAKE ONE TABLET BY MOUTH ONCE A DAY 06/09/2014 12/05/2014 Inactive propranolol ER 80 mg capsule,24 hr,extended release RxNorm: 158254 1 Capsule(s) PO QD replaces amlodopine 06/05/2014 11/28/2014 Inactive [Loop SurveyIN GS FOR UNINSURED PATIENTS -- BIN:[id number], PCN: [id number], Group: [id number], ID# [id number], Process claim through [employer], for questions: . THIS IS NOT INSURANCE.] propranolol ER 80 mg capsule,24 hr,extended release RxNorm: 289588 1 Capsule(s) PO QD replaces amlodopine 03/07/2014 06/05/2014 Inactive [SAVIN GS FOR UNINSURED PATIENTS -- BIN:772167, PCN: [id number], Group: [id number], ID# [id number], Process claim through [employer], for questions: . THIS IS NOT INSURANCE.] metformin ER 500 mg tablet,extended release 24 hr RxNorm: 86 0975 TAKE ONE TABLET BY MOUTH ONCE A DAY 12/15/2013 06/09/2014 Inactive propranolol ER 80 mg capsule,24 hr,extended release RxNorm: 647996 1 Capsule(s) PO QD replaces amlodopine 12/09/2013 03/07/2014 Inactive [NICOLAS FOR UNINSURED PATIENTS -- BIN:749863, PCN: [id number], Group: [id number], ID# [id number], Process claim through [employer], for questions: . THIS IS NOT INSURANCE.] acyclovir 800 mg tablet RxNorm: 883380 1 Tablet(s) PO QID 09/23/2013 09/29/2013 Inactive gabapentin 300 mg capsule RxNorm: 098928 1 Capsule(s) PO BID 201310/07/2013 Inactive metformin ER 500 mg tablet,extended release 24 hr RxNorm: 86 0975 1 Tablet(s) PO QD 09/19/2013 12/14/2013 Inactive propranolol ER 80 mg capsule,24 hr,extended release RxNorm: 637134 1 Capsule(s) PO QD replaces amlodopine 09/15/2013 12/09/2013 Inactive metformin ER 500 mg 24 hr tablet,extended release RxNorm: 86 0975 1 Tablet(s) PO QD 09/15/2013 09/18/2013 Inactive lisinopril 40 mg tablet RxNorm: 979931 1 Tablet(s) PO QD 07/19/2013 0 07/14/2014 Inactive Crestor 10 mg tablet RxNorm: 436747 Tablet(s) PO TAKE O NE TABLET BY MOUTH EVERY DAY 07/12/2013 07/05/2014 Inactive propranolol ER 80 mg capsule,24 hr,extended release RxNorm: 086755 1 Capsule(s) PO QD replaces amlodopine 06/20/2013 09/15/2013 Inactive triamcinolone acetonide 0.1 % topical ointment RxNorm: 74923 36 Application TOP BID 06/20/2013 06/26/2013 Inactive Crestor 10 mg tablet RxNorm: 106605 1 Tablet(s) PO QD 04/18/201310/2013 Inactive Viagra 100 mg tablet RxNorm: 229707 1 Tablet(s) PO as directed 01/0508/18/2018 Inactive TAKE ONE TABLET BY MOUTH DIRECTED Crestor 10 mg tablet RxNorm: 367091 1 Tablet(s) PO QD 01/17/201304/06 Inactive metformin ER 500 mg tablet,extended release 24 hr RxNorm: 86 0975 1 Tablet(s) PO QD TAKE ONE TABLET BY MOUTH EVERY DAY 12/23/2012 09/15/2013 Inactive triamcinolone acetonide 0.1 % topical ointment RxNorm: 76839 36 Application TOP BID 08/27/2012 09/02/2012 Inactive ketoconazole 2 % topical cream RxNorm: 130249 1 Application TOP QAM 08/27/2012 09/02/2012 Inactive lisinopril 40 mg tablet RxNorm: 003783 1 Tablet(s) PO QD 07/21/2012 0 07/15/2013 Inactive Crestor 10 mg tablet RxNorm: 461193 1 Tablet(s) PO QD 07/21/201210/04 Inactive amlodipine 10 mg tablet RxNorm: 649350 1 Tablet(s) PO QHS 07/21/2012 07/15/2013 Inactive metformin ER 500 mg tablet,extended release 24 hr RxNorm: 86 0977 Tablet(s) PO TAKE ONE TABLET BY MOUTH EVERY DAY 03/31/2012 12/22/2012 Inactive lisinopril 40 mg tablet RxNorm: 699421 1 Tablet(s) PO QD 07/29/2011 0 07/20/2012 Inactive amlodipine 10 mg tablet RxNorm: 885790 1 Tablet(s) PO QHS 07/29/2011 07/20/2012 Inactive amlodipine 10 mg Tab RxNorm: 161547 1 Tablet(s) PO QHS 07/29/2011 Inactive Viagra 100 mg tablet RxNorm: 152816 1 Tablet(s) PO as directed 07/0601/24/2013 Inactive TAKE ONE TABLET BY MOUTH DIRECTED Crestor 10 mg tablet RxNorm: 004835 1 Tablet(s) PO QD 07/29/201107/05 Inactive Norvasc 5 mg Tab RxNorm: 845691 1 Tablet(s) PO QD 07/16/2011 07/28/19 Inactive Norvasc 5 mg Tab RxNorm: 651293 1 Tablet(s) PO QD 06/26/2011 07/15/19 12 Inactive lisinopril 40 mg Tab RxNorm: 216824 1 Tablet(s) PO QD 05/13/201107/06 Inactive metformin ER 500 mg tablet,extended release 24 hr RxNorm: 86 0977 1 Tablet(s) PO QD 03/18/2011 07/28/2011 Inactive Crestor 10 mg Tab RxNorm: 064500 1 Tablet(s) PO QHS 01/27/20112011 Inactive metformin ER 500 mg 24 hr Tab RxNorm: 853561 1 Tablet(s) PO QD 11/0403/17/2011 Inactive Viagra 100 mg Tab RxNorm: 663677 Tablet(s) PO TAKE ON E TABLET BY MOUTH DIRECTED 08/26/2010 07/28/2011 Inactive metformin ER 500 mg 24 hr Tab RxNorm: 167560 1 Tablet(s) PO QD 07/0611/18/2010 Inactive Crestor 10 mg Tab RxNorm: 642944 1 Tablet(s) PO QHS 07/30/20102010 Inactive Crestor 10 mg Tab RxNorm: 655701 1 Tablet(s) PO QHS 05/20/20102010 Inactive Wellbutrin SR 150 mg Tab RxNorm: 877810 1 Tablet(s) PO QAM 04/24/19 11 07/22/2010 Inactive Multivitamin And Mineral tablet RxNorm: 1 Tablet(s) PO QD No Start Date Active FreeStyle Lite Strips RxNorm: 1 Unit Dose Miscel laneous AC & HS check blood sugar AC and HS No Start Date Active Co Q-10 200 mg capsule RxNorm: 496437 1 Capsule(s) PO QD No Start Date Active lancets RxNorm: 1 Milliliter(s) Miscellaneous AC & HS No Start Robert e Active Vitamin D3 4,000 unit capsule RxNorm: 9963370 1 Capsule(s) PO QD No Start Date 07/08/2016 Inactive Fish Oil 360 mg-1,200 mg capsule RxNorm: 746106 2 Capsule(s) PO QD No Start Date 01/30/2019 Inactive hydrocodone 5 mg-acetaminophen 325 mg tablet RxNorm: 622691 1 Tablet(s) PO Q4H as needed for severe pain No Start Date 12/30/2015 Inactive Xanax 0.25 mg tablet RxNorm: 438105 1/2 Tablet(s) PO PRN for se andrea stress No Start Date 07/08/2016 Inactive lisinopril 40 mg Tab RxNorm: 559799 1 Tablet(s) PO QD No Start Date 0 05/12/2011 Inactive Fish Oil 1,000 mg capsule RxNorm: 1 Capsule(s) PO QD No Start Date 09/18/2014 Inactive naproxen 500 mg Tab RxNorm: 363246 1 Tablet(s) PO BID No Start Date 0 07/28/2011 Inactive aspirin 81 mg tablet RxNorm: 062363 1 Tablet(s) PO QD No Start Date 0 05/09/2018 Inactive Crestor 10 mg Tab RxNorm: 605138 1 Tablet(s) PO QD No Start Date 07/06 Inactive Crestor 5 mg tablet RxNorm: 465421 1 Tablet(s) PO QD No Start Date Inactive Fish Oil Oral RxNorm: Oral No Start Date 09/18/2014 Inactive Viagra 100 mg Tab RxNorm: 184497 1 Tablet(s) PO as directed No Star [...] Result Date S ervice Location MEAN GLUC 9621661 Calc Mean Gluc 140 mg/dL 01/26/2019 Unkn own GLYCOSYLATED HEMOGLOBIN TEST 83951 Hgb A1c 39292-1 6.5 % 1 Unknown COMPREHENSIVE METABOLIC 60391 AST 17 U/L 2018 Unknown COMPREHENSIVE METABOLIC 06348 ALT 19 U/L 2018 Unknown COMPREHENSIVE METABOLIC 33007 BUN 19 mg/dL 2018 Unknown COMPREHENSIVE METABOLIC 50179 ALBUMIN 4.3 g/dL 2018 Unknown COMPREHENSIVE METABOLIC 49139 CHLORIDE 103 mmol/L 01/26 Unknown COMPREHENSIVE METABOLIC 04515 Bili Total 0.6 mg/dL 01/26 Unknown COMPREHENSIVE METABOLIC 27399 ALK PHOS 60 U/L 2018 Unknown COMPREHENSIVE METABOLIC 04224 SODIUM 140 mmol/L 01/26 Unknown COMPREHENSIVE METABOLIC 41935 CREATININE 1.21 mg/dL 01/05 Unknown COMPREHENSIVE METABOLIC 15437 CALCIUM 9.6 mg/dL 2018 Unknown COMPREHENSIVE METABOLIC 08137 POTASSIUM 4.5 mmol/L 01/26 Unknown COMPREHENSIVE METABOLIC 15763 Total Protein 6.7 g/dL Unknown COMPREHENSIVE METABOLIC 29104 Glucose 111 mg/dL 2018 Unknown COMPREHENSIVE METABOLIC 83371 Bicarbonate 28 mmol/L 01/05 Unknown COMPREHENSIVE METABOLIC 21104 AGAP 9 mmol/L 2018 Unknown COMPLETE BLOOD COUNT [id number] WBC 10.7 10e9/L 019 Unknown COMPLETE BLOOD COUNT [id number] RBC 4.38 10e12/L 2018 Unknown COMPLETE BLOOD COUNT [id number] HEMOGLOBIN 13.7 g/dL 01/27/20 19 Unknown COMPLETE BLOOD COUNT [id number] HEMATOCRIT 42.0 % 01/27/20 19 Unknown COMPLETE BLOOD COUNT [id number] MCV 95.9 fL 9 Unknown COMPLETE BLOOD COUNT [id number] MCH 31.3 pg 9 Unknown COMPLETE BLOOD COUNT [id number] MCHC 32.6 g/dL 9 Unknown COMPLETE BLOOD COUNT [id number] PLATELET COUNT 232 10e9/L Unknown COMPLETE BLOOD COUNT [id number] Mean Plt Volume 11.4 fL Unknown COMPLETE BLOOD COUNT 7372839 Neut Auto 68.7 % 9 Unknown COMPLETE BLOOD COUNT [id number] Lymph Auto 21.2 % 01/27/20 19 Unknown COMPLETE BLOOD COUNT [id number] [place] Auto 8.1 % 9 Unknown COMPLETE BLOOD COUNT 4151111 RDW 14.1 % 9 Unknown COMPLETE BLOOD COUNT 0624274 Eos Auto 1.8 % 9 Unknown COMPLETE BLOOD COUNT 0828861 Baso Auto 0.2 % 9 Unknown COMPLETE BLOOD COUNT [id number] Neutrophil Abs 7.35 10e9/L Unknown COMPLETE BLOOD COUNT [id number] Lymphocyte Abs 2.27 10e9/L Unknown COMPLETE BLOOD COUNT [id number] Monocyte Abs 0.87 10e9/L 01/05 Unknown COMPLETE BLOOD COUNT 8400127 Eosinophil Abs 0.19 10e9/L Unknown COMPLETE BLOOD COUNT [id number] RDW-SD 47.7 fL 9 Unknown COMPLETE BLOOD COUNT [id number] Basophil Abs 0.02 10e9/L 01/05 Unknown GFR CALC 9421866 GFR Non Afr Amr 59 mL/min 01/26/2019 Unk nown GFR CALC [id number] GFR Afr Amr >60 mL/min 01/26/2019 Unknow n LIP[facility] 82979 Cholesterol 215 mg/dL 01/26/2019 Unkno wn L[facility] GROUP 37580 Triglyceride 221 mg/dL 01/26/2019 Unkn own [facility] 26171 HDL CHOLESTEROL 41 mg/dL 01/26/2019 U nknown L[facility] 23715 Chol/HDL Ratio 5.24 ratio 01/26/2019 U nknown L[facility] 19987 NON-HDL Chol 174 mg/dL 01/26/2019 Unkn own [facility] GROUP 10100 LDL Cholesterol 130 mg/dL 01/26/2019 [place] [address] Glucose 104 mg/dL 09/30 [place] [address] CREATININE 1.18 mg/dL [place] [address] BUN 19 mg/dL 09/30 [place] [address] SODIUM 139 mmol/L 09/05 [place] [address] POTASSIUM 4.1 mmol/L 09/05 [place] [address] CHLORIDE 105 mmol/L 09/05 [place] [address] Bicarbonate 26 mmol/[place] [address] AGAP 8 mmol/L 09/30 [place] [address] CALCIUM 9.3 mg/dL 09/30 Unknown GFR CALC [id number] GFR Non Afr Amr >60 mL/min 09/30/2018 Un known GFR CALC [id number] GFR Afr Amr >60 mL/min 09/30/2018 Unknow n MICROALBUMIN URINE RANDOM 51546 U Microalbumin <2.0 mg/L 08/19/2018 Unknown MICROALBUMIN URINE RANDOM 99124 U Creatinine 66 mg/dL 0 08/19/2018 Unknown MICROALBUMIN URINE RANDOM 04756 ALB/CR Ratio <3.0 mg/gCR 08/19/2018 Unknown COMPREHENSIVE METABOLIC 52357 AST 21 U/L 2018 Unknown COMPREHENSIVE METABOLIC 76081 ALT 20 U/L 2018 Unknown COMPREHENSIVE METABOLIC 68824 BUN 31 mg/dL 2018 Unknown COMPREHENSIVE METABOLIC 67328 ALBUMIN 4.4 g/dL 2018 Unknown COMPREHENSIVE METABOLIC 03976 CHLORIDE 105 mmol/L 08/16 Unknown COMPREHENSIVE METABOLIC 12185 Bili Total 0.5 mg/dL 08/16 Unknown COMPREHENSIVE METABOLIC 70090 ALK PHOS 40 U/L 2018 Unknown COMPREHENSIVE METABOLIC 91806 SODIUM 140 mmol/L 08/16 Unknown COMPREHENSIVE METABOLIC 80831 CREATININE 1.45 mg/dL 08/04 Unknown COMPREHENSIVE METABOLIC 23885 CALCIUM 9.8 mg/dL 2018 Unknown COMPREHENSIVE METABOLIC 03738 POTASSIUM 5.1 mmol/L 08/16 Unknown COMPREHENSIVE METABOLIC 99862 Total Protein 6.9 g/dL Unknown COMPREHENSIVE METABOLIC 86615 Glucose 110 mg/dL 2018 Unknown COMPREHENSIVE METABOLIC 99461 Bicarbonate 25 mmol/L 08/04 Unknown COMPREHENSIVE METABOLIC 70564 AGAP 10 mmol/L 2018 Unknown GFR CALC 9395092 GFR Non Afr Amr 48 mL/min 08/16/2018 Unk nown GFR CALC 9492891 GFR Afr Amr 58 mL/min 08/16/2018 Unknown GLYCOSYLATED HEMOGLOBIN TEST 82179 Hgb A1c 71445-9 5.9 % 0 08/16/2018 Unknown [facility] 61442 Cholesterol 226 mg/dL 08/16/2018 Unkno wn LIP[facility] GROUP 34318 Triglyceride 335 mg/dL 08/16/2018 Unkn own [facility] 49349 HDL CHOLESTEROL 32 mg/dL 08/16/2018 U nknown LIP[facility] GROUP 00850 Chol/HDL Ratio 7.06 ratio 08/16/2018 U nknown L[facility] GROUP 20589 NON-HDL Chol 194 mg/dL 08/16/2018 Unkn own [facility] GROUP 42912 LDL Cholesterol 127 mg/dL 08/16/2018 U nknown THYROID STIMULATING HORMONE 38835 TSH 2.475 uIU/mL 08/16/2018 Unknown COMPLETE BLOOD COUNT 8558399 WBC 7.5 10e9/L 08/17/19 19 Unknown COMPLETE BLOOD COUNT [id number] RBC 4.09 10e12/L 2018 Unknown COMPLETE BLOOD COUNT 2641182 HEMOGLOBIN 12.9 g/dL 08/17/19 19 Unknown COMPLETE BLOOD COUNT 9724474 HEMATOCRIT 40.0 % 08/17/19 19 Unknown COMPLETE BLOOD COUNT [id number] MCV 97.8 fL 9 Unknown COMPLETE BLOOD COUNT [id number] MCH 31.5 pg 9 Unknown COMPLETE BLOOD COUNT 6018056 MCHC 32.3 g/dL 9 Unknown COMPLETE BLOOD COUNT 7793080 PLATELET COUNT 258 10e9/L Unknown COMPLETE BLOOD COUNT 5491174 Mean Plt Volume 11.4 fL Unknown COMPLETE BLOOD COUNT 8810360 Neut Auto 62.9 % 9 Unknown COMPLETE BLOOD COUNT 0027147 Lymph Auto 27.3 % 08/17/19 19 Unknown COMPLETE BLOOD COUNT 5301842 [place] Auto 8.2 % 9 Unknown COMPLETE BLOOD COUNT 3836486 RDW 13.3 % 9 Unknown COMPLETE BLOOD COUNT 2489047 Eos Auto 1.5 % 9 Unknown COMPLETE BLOOD COUNT 1386984 Baso Auto 0.1 % 9 Unknown COMPLETE BLOOD COUNT 2032328 Neutrophil Abs 4.72 10e9/L Unknown COMPLETE BLOOD COUNT 6197045 Lymphocyte Abs 2.05 10e9/L Unknown COMPLETE BLOOD COUNT 6271930 Monocyte Abs 0.62 10e9/L 08/04 Unknown COMPLETE BLOOD COUNT 2959104 Eosinophil Abs 0.11 10e9/L Unknown COMPLETE BLOOD COUNT 2316607 RDW-SD 46.7 fL 9 Unknown COMPLETE BLOOD COUNT [id number] Basophil Abs 0.01 10e9/L 08/04 Unknown MEAN GLUC 4071152 Calc Mean Gluc 123 mg/dL 08/16/2018 Unkn own [facility] 28290 Cholesterol 212 mg/dL 05/05/2018 Unkno wn [facility] 35444 Triglyceride 271 mg/dL 05/05/2018 Unkn own [facility] 52258 HDL CHOLESTEROL 38 mg/dL 05/05/2018 U nknown L[facility] 79689 Chol/HDL Ratio 5.58 ratio 05/05/2018 U nknown L[facility] 14485 NON-HDL Chol 174 mg/dL 05/05/2018 Unkn own [facility] 23334 LDL Cholesterol 120 mg/dL 05/05/2018 U nknown GFR CALC 0397065 GFR Afr Amr 59 mL/min 05/05/2018 Unknown GFR CALC 1998876 GFR Non Afr Amr 49 mL/min 05/05/2018 Unk nown GLYCOSYLATED HEMOGLOBIN TEST 06206 Hgb A1c 14522-0 6.0 % 0 05/05/2018 Unknown MEAN GLUC 5178067 Calc Mean Gluc 126 mg/dL 05/05/2018 Unkn own COMPREHENSIVE METABOLIC 65381 AST 18 U/L 2018 Unknown COMPREHENSIVE METABOLIC 62195 ALT 23 U/L 2018 Unknown COMPREHENSIVE METABOLIC 49451 BUN 30 mg/dL 2018 Unknown COMPREHENSIVE METABOLIC 51372 ALBUMIN 4.3 g/dL 2018 Unknown COMPREHENSIVE METABOLIC 11227 CHLORIDE 106 mmol/L 05/05 Unknown COMPREHENSIVE METABOLIC 45182 Bili Total 0.4 mg/dL 05/05 Unknown COMPREHENSIVE METABOLIC 35116 ALK PHOS 39 U/L 2018 Unknown COMPREHENSIVE METABOLIC 26561 SODIUM 139 mmol/L 05/05 Unknown COMPREHENSIVE METABOLIC 80695 CREATININE 1.44 mg/dL 04/08 Unknown COMPREHENSIVE METABOLIC 91430 CALCIUM 9.6 mg/dL 2018 Unknown COMPREHENSIVE METABOLIC 12412 POTASSIUM 4.7 mmol/L 05/05 Unknown COMPREHENSIVE METABOLIC 50734 Total Protein 6.6 g/dL Unknown COMPREHENSIVE METABOLIC 29063 Glucose 112 mg/dL 2018 Unknown COMPREHENSIVE METABOLIC 79145 Bicarbonate 28 mmol/L 04/08 Unknown COMPREHENSIVE METABOLIC 91460 AGAP 5 mmol/L 2018 Unknown THYROID STIMULATING HORMONE 42659 TSH 3.725 uIU/mL 05/05/2018 Unknown COMPLETE BLOOD COUNT [id number] WBC 8.2 10e9/L 05/05/19 19 Unknown COMPLETE BLOOD COUNT [id number] RBC 4.02 10e12/L 2018 Unknown COMPLETE BLOOD COUNT [id number] HEMOGLOBIN 12.7 g/dL 05/05/19 19 Unknown COMPLETE BLOOD COUNT [id number] HEMATOCRIT 39.3 % 05/05/19 19 Unknown COMPLETE BLOOD COUNT [id number] MCV 97.8 fL 9 Unknown COMPLETE BLOOD COUNT [id number] MCH 31.6 pg 9 Unknown COMPLETE BLOOD COUNT [id number] MCHC 32.3 g/dL 9 Unknown COMPLETE BLOOD COUNT [id number] PLATELET COUNT 213 10e9/L Unknown COMPLETE BLOOD COUNT [id number] Mean Plt Volume 11.7 fL Unknown COMPLETE BLOOD COUNT [id number] Neut Auto 55.7 % 9 Unknown COMPLETE BLOOD COUNT [id number] Lymph Auto 33.2 % 05/05/19 19 Unknown COMPLETE BLOOD COUNT [id number] [place] Auto 8.5 % 9 Unknown COMPLETE BLOOD COUNT [id number] RDW 13.9 % 9 Unknown COMPLETE BLOOD COUNT 9443060 Eos Auto 2.4 % 9 Unknown COMPLETE BLOOD COUNT [id number] Baso Auto 0.2 % 9 Unknown COMPLETE BLOOD COUNT [id number] Neutrophil Abs 4.57 10e9/L Unknown COMPLETE BLOOD COUNT [id number] Lymphocyte Abs 2.72 10e9/L Unknown COMPLETE BLOOD COUNT [id number] Monocyte Abs 0.70 10e9/L 04/08 Unknown COMPLETE BLOOD COUNT [id number] Eosinophil Abs 0.20 10e9/L Unknown COMPLETE BLOOD COUNT [id number] RDW-SD 48.8 fL 9 Unknown COMPLETE BLOOD COUNT [id number] Basophil Abs 0.02 10e9/L 04/08 Unknown MICROALBUMIN URINE RANDOM 45489 U Microalbumin 19.3 mg/L 01/19/2018 Unknown MICROALBUMIN URINE RANDOM 79315 U Creatinine 96 mg/dL 1 Unknown MICROALBUMIN URINE RANDOM 36496 ALB/CR Ratio 20.1 mg/gCR 01/19/2018 Unknown LIPID GROUP 25453 Cholesterol 173 mg/dL 01/13/2018 Unkno wn LIPID GROUP 61811 Triglyceride 386 mg/dL 01/13/2018 Unkn own LIPID GROUP 34633 HDL CHOLESTEROL 37 mg/dL 01/13/2018 U nknown LIPID GROUP 35151 Chol/HDL Ratio 4.68 ratio 01/13/2018 U nknown LIPID GROUP 15026 NON-HDL Chol 136 mg/dL 01/13/2018 Unkn own LIPID GROUP 82825 LDL Cholesterol 59 mg/dL 01/13/2018 U nknown COMPLETE BLOOD COUNT [id number] WBC TNP:Client Request 01/13/2018 Unknown COMPLETE BLOOD COUNT [id number] RBC TNP:Client Request 01/13/2018 Unknown COMPLETE BLOOD COUNT [id number] HEMOGLOBIN TNP:Client Request 01/13/2018 Unknown COMPLETE BLOOD COUNT [id number] HEMATOCRIT TNP:Client Request 01/13/2018 Unknown COMPLETE BLOOD COUNT [id number] MCV TNP:Client Request 01/13/2018 Unknown COMPLETE BLOOD COUNT [id number] MCH TNP:Client Request 01/13/2018 Unknown COMPLETE BLOOD COUNT [id number] MCHC TNP:Client Request 01/13/2018 Unknown COMPLETE BLOOD COUNT [id number] PLATELET COUNT TNP:Client Req uest 01/13/2018 Unknown COMPLETE BLOOD COUNT [id number] Mean Plt Volume TNP:Client Re quest 01/13/2018 Unknown COMPLETE BLOOD COUNT [id number] Neut Auto TNP:Client Request 01/13/2018 Unknown COMPLETE BLOOD COUNT [id number] Lymph Auto TNP:Client Request 01/13/2018 Unknown COMPLETE BLOOD COUNT [id number] Custer Auto TNP:Client Request 01/13/2018 Unknown COMPLETE BLOOD COUNT [id number] RDW TNP:Client Request 01/13/2018 Unknown COMPLETE BLOOD COUNT [id number] Eos Auto TNP:Client Request 01/13/2018 Unknown COMPLETE BLOOD COUNT [id number] Baso Auto TNP:Client Request 01/13/2018 Unknown COMPLETE BLOOD COUNT [id number] Neutrophil Abs TNP:Client Req uest 01/13/2018 Unknown COMPLETE BLOOD COUNT [id number] Lymphocyte Abs TNP:Client Req uest 01/13/2018 Unknown COMPLETE BLOOD COUNT [id number] Monocyte Abs TNP:Client Reque st 01/13/2018 Unknown COMPLETE BLOOD COUNT [id number] Eosinophil Abs TNP:Client Req uest 01/13/2018 Unknown COMPLETE BLOOD COUNT [id number] RDW-SD TNP:Client Request 01/13/2018 Unknown COMPLETE BLOOD COUNT [id number] Basophil Abs TNP:Client Reque st 01/13/2018 Unknown GLYCOSYLATED HEMOGLOBIN TEST 50996 Hgb A1c 37901-9 6.2 % 1 Unknown THYROID STIMULATING HORMONE 07417 TSH 2.764 uIU/mL 01/13/2018 Unknown COMPREHENSIVE METABOLIC 70184 AST 19 U/L 2017 Unknown COMPREHENSIVE METABOLIC 47643 ALT 21 U/L 2017 Unknown COMPREHENSIVE METABOLIC 58861 BUN 16 mg/dL 2017 Unknown COMPREHENSIVE METABOLIC 98316 ALBUMIN 4.2 g/dL 2017 Unknown COMPREHENSIVE METABOLIC 41312 CHLORIDE 105 mmol/L 01/13 Unknown COMPREHENSIVE METABOLIC 49933 Bili Total 0.5 mg/dL 01/13 Unknown COMPREHENSIVE METABOLIC 34973 ALK PHOS 85 U/L 2017 Unknown COMPREHENSIVE METABOLIC 35216 SODIUM 139 mmol/L 01/13 Unknown COMPREHENSIVE METABOLIC 46941 CREATININE 1.07 mg/dL 01/04 Unknown COMPREHENSIVE METABOLIC 15210 CALCIUM 9.2 mg/dL 2017 Unknown COMPREHENSIVE METABOLIC 95025 POTASSIUM 4.4 mmol/L 01/13 Unknown COMPREHENSIVE METABOLIC 63337 Total Protein 7.7 g/dL Unknown COMPREHENSIVE METABOLIC 37038 Glucose 130 mg/dL 2017 Unknown COMPREHENSIVE METABOLIC 76323 Bicarbonate 27 mmol/L 01/04 Unknown COMPREHENSIVE METABOLIC 69150 AGAP 7 mmol/L 2017 Unknown PSA EQUIMOLAR JERSON 65025 PSA Total 1.16 ng/mL 8 Unknown MEAN GLUC 0220705 Calc Mean Gluc 131 mg/dL 01/13/2018 Unkn own GFR CALC 1411606 GFR Non Afr Amr >60 mL/min 01/13/2018 Un known GFR CALC 8763848 GFR Afr Amr >60 mL/min 01/13/2018 Unknow n MEAN GLUC 2360698 Calc Mean Gluc 134 mg/dL 10/06/2017 Unkn own GFR CALC 3768334 GFR Non Afr Amr >60 mL/min 10/06/2017 Un known GFR CALC 2291840 GFR Afr Amr >60 mL/min 10/06/2017 Unknow n GLYCOSYLATED HEMOGLOBIN TEST 95877 Hgb A1c 38503-1 6.3 % 0 10/06/2017 Unknown VITAMIN B 12 92427 VITAMIN B12 1202 pg/mL 10/06/2017 Unk nown COMPLETE BLOOD COUNT [id number] WBC 7.4 10e9/L 10/07/19 18 Unknown COMPLETE BLOOD COUNT [id number] RBC 4.24 10e12/L 2017 Unknown COMPLETE BLOOD COUNT [id number] HEMOGLOBIN 13.5 g/dL 10/07/19 18 Unknown COMPLETE BLOOD COUNT [id number] HEMATOCRIT 41.6 % 10/07/19 18 Unknown COMPLETE BLOOD COUNT 1480350 MCV 98.1 fL 8 Unknown COMPLETE BLOOD COUNT 8423111 MCH 31.8 pg 8 Unknown COMPLETE BLOOD COUNT 5853244 MCHC 32.5 g/dL 8 Unknown COMPLETE BLOOD COUNT [id number] PLATELET COUNT 223 10e9/L 06/2017 Unknown COMPLETE BLOOD COUNT [id number] Mean Plt Volume 11.9 fL 06/2017 Unknown COMPLETE BLOOD COUNT [id number] Neut Auto 58.0 % 8 Unknown COMPLETE BLOOD COUNT 1371212 Lymph Auto 29.7 % 10/07/19 18 Unknown COMPLETE BLOOD COUNT 6742818 [place] Auto 8.3 % 8 Unknown COMPLETE BLOOD COUNT 9430022 Eos Auto 3.7 % 8 Unknown COMPLETE BLOOD COUNT 0953915 RDW 14.0 % 8 Unknown COMPLETE BLOOD COUNT 7776272 Baso Auto 0.3 % 8 Unknown COMPLETE BLOOD COUNT 9436048 Neutrophil Abs 4.29 10e9/L Unknown COMPLETE BLOOD COUNT 9797637 Lymphocyte Abs 2.20 10e9/L Unknown COMPLETE BLOOD COUNT [id number] Monocyte Abs 0.61 10e9/L 06/2017 Unknown COMPLETE BLOOD COUNT [id number] Eosinophil Abs 0.27 10e9/L Unknown COMPLETE BLOOD COUNT [id number] Basophil Abs 0.02 10e9/L 06/2017 Unknown COMPLETE BLOOD COUNT 2370038 RDW-SD 48.6 fL 8 Unknown LIPID GROUP 17899 Cholesterol 216 mg/dL 10/06/2017 Unkno wn LIPID GROUP 92423 Triglyceride 335 mg/dL 10/06/2017 Unkn own LIPID GROUP 85291 HDL CHOLESTEROL 33 mg/dL 10/06/2017 U nknown LIPID GROUP 54436 Chol/HDL Ratio 6.55 ratio 10/06/2017 U nknown LIPID GROUP 95838 NON-HDL Chol 183 mg/dL 10/06/2017 Unkn own LIPID GROUP 37074 LDL Cholesterol 116 mg/dL 10/06/2017 U nknown COMPREHENSIVE METABOLIC 15074 AST 15 U/L 2017 Unknown COMPREHENSIVE METABOLIC 86058 ALT 15 U/L 2017 Unknown COMPREHENSIVE METABOLIC 48917 BUN 21 mg/dL 2017 Unknown COMPREHENSIVE METABOLIC 55820 ALBUMIN 4.1 g/dL 2017 Unknown COMPREHENSIVE METABOLIC 92816 CHLORIDE 107 mmol/L 10/06 Unknown COMPREHENSIVE METABOLIC 37111 Bili Total 0.6 mg/dL 10/06 Unknown COMPREHENSIVE METABOLIC 34800 ALK PHOS 68 U/L 2017 Unknown COMPREHENSIVE METABOLIC 53216 SODIUM 140 mmol/L 10/06 Unknown COMPREHENSIVE METABOLIC 35445 CREATININE 1.12 mg/dL 06/2017 Unknown COMPREHENSIVE METABOLIC 19394 CALCIUM 9.7 mg/dL 2017 Unknown COMPREHENSIVE METABOLIC 84621 POTASSIUM 4.6 mmol/L 10/06 Unknown COMPREHENSIVE METABOLIC 73708 Total Protein 6.6 g/dL Unknown COMPREHENSIVE METABOLIC 75498 Glucose 114 mg/dL 2017 Unknown COMPREHENSIVE METABOLIC 90093 Bicarbonate 26 mmol/L 06/2017 Unknown COMPREHENSIVE METABOLIC 59610 AGAP 7 mmol/L 2017 Unknown GLYCOSYLATED HEMOGLOBIN TEST 26613 Hgb A1c 08024-6 6.1 % 1 05/05/2016 Unknown GFR CALC 3803922 GFR Non Afr Amr >60 mL/min 03/05/2017 Un known GFR CALC 6302838 GFR Afr Amr >60 mL/min 03/05/2017 Unknow n MEAN GLUC 3956805 Calc Mean Gluc 128 mg/dL 03/05/2017 Unkn own COMPREHENSIVE METABOLIC 71744 AST 18 U/L 2016 Unknown COMPREHENSIVE METABOLIC 07096 ALT 20 U/L 2016 Unknown COMPREHENSIVE METABOLIC 06314 BUN 15 mg/dL 2016 Unknown COMPREHENSIVE METABOLIC 63693 ALBUMIN 4.3 g/dL 2016 Unknown COMPREHENSIVE METABOLIC 67134 CHLORIDE 105 mmol/L 03/05 Unknown COMPREHENSIVE METABOLIC 66885 Bili Total 0.5 mg/dL 03/05 Unknown COMPREHENSIVE METABOLIC 24098 ALK PHOS 57 U/L 2016 Unknown COMPREHENSIVE METABOLIC 14761 SODIUM 141 mmol/L 03/05 Unknown COMPREHENSIVE METABOLIC 62086 CREATININE 1.07 mg/dL 02/06 Unknown COMPREHENSIVE METABOLIC 61885 CALCIUM 9.3 mg/dL 2016 Unknown COMPREHENSIVE METABOLIC 57332 POTASSIUM 4.8 mmol/L 03/05 Unknown COMPREHENSIVE METABOLIC 95356 Total Protein 6.2 g/dL Unknown COMPREHENSIVE METABOLIC 01146 Glucose 118 mg/dL 2016 Unknown COMPREHENSIVE METABOLIC 57422 Bicarbonate 29 mmol/L 02/06 Unknown COMPREHENSIVE METABOLIC 87392 AGAP 7 mmol/L 2016 Unknown FREE T4 09596 T4 Free 1.38 ng/dL 03/05/2017 Unknown COMPLETE BLOOD COUNT 7004107 WBC 8.4 10e9/L 03/05/20 17 Unknown COMPLETE BLOOD COUNT 2879815 RBC 4.11 10e12/L 2016 Unknown COMPLETE BLOOD COUNT 6196395 HEMOGLOBIN 12.8 g/dL 03/05/20 17 Unknown COMPLETE BLOOD COUNT 3866946 HEMATOCRIT 40.1 % 03/05/20 17 Unknown COMPLETE BLOOD COUNT 6439183 MCV 97.6 fL 7 Unknown COMPLETE BLOOD COUNT 7269950 MCH 31.1 pg 7 Unknown COMPLETE BLOOD COUNT 4723534 MCHC 31.9 g/dL 7 Unknown COMPLETE BLOOD COUNT 6512413 PLATELET COUNT 184 10e9/L Unknown COMPLETE BLOOD COUNT 5474297 Mean Plt Volume 11.3 fL Unknown COMPLETE BLOOD COUNT 3369043 Neut Auto 62.5 % 7 Unknown COMPLETE BLOOD COUNT 2881312 Lymph Auto 26.4 % 03/05/20 17 Unknown COMPLETE BLOOD COUNT 1234698 [place] Auto 7.9 % 7 Unknown COMPLETE BLOOD COUNT 7685820 RDW 13.5 % 7 Unknown COMPLETE BLOOD COUNT 5461050 Eos Auto 3.0 % 7 Unknown COMPLETE BLOOD COUNT 6249949 Baso Auto 0.2 % 7 Unknown COMPLETE BLOOD COUNT 5286238 Neutrophil Abs 5.25 10e9/L Unknown COMPLETE BLOOD COUNT 7716806 Lymphocyte Abs 2.22 10e9/L Unknown COMPLETE BLOOD COUNT 0187502 Monocyte Abs 0.66 10e9/L 02/06 Unknown COMPLETE BLOOD COUNT 1928009 Eosinophil Abs 0.25 10e9/L Unknown COMPLETE BLOOD COUNT 4017489 RDW-SD 46.7 fL 7 Unknown COMPLETE BLOOD COUNT 9265284 Basophil Abs 0.02 10e9/L 02/06 Unknown THYROID STIMULATING HORMONE 57270 TSH 2.330 uIU/mL 03/05/2017 Unknown LIPID GROUP 68405 Cholesterol 135 mg/dL 03/05/2017 Unkno wn LIPID GROUP 18140 Triglyceride 297 mg/dL 03/05/2017 Unkn own LIPID GROUP 79555 HDL CHOLESTEROL 34 mg/dL 03/05/2017 U nknown LIPID GROUP 95076 Chol/HDL Ratio 3.97 ratio 03/05/2017 U nknown LIPID GROUP 38489 NON-HDL Chol 101 mg/dL 03/05/2017 Unkn own LIPID GROUP 11440 LDL Cholesterol 42 mg/dL 03/05/2017 U nknown GLYCOSYLATED HEMOGLOBIN TEST 36831 Hgb A1c 62885-2 6.5 % 1 05/07/2015 Unknown GFR CALC 8022208 GFR Non Afr Amr 55 mL/min 03/06/2016 Unk nown GFR CALC 3218689 GFR Afr Amr >60 mL/min 03/06/2016 Unknow n COMPLETE BLOOD COUNT 9849453 WBC 8.5 10e9/L 03/06/20 16 Unknown COMPLETE BLOOD COUNT 9229530 RBC 4.32 10e12/L 2015 Unknown COMPLETE BLOOD COUNT 4181205 HEMOGLOBIN 13.5 g/dL 03/06/20 16 Unknown COMPLETE BLOOD COUNT 1512379 HEMATOCRIT 41.3 % 03/06/20 16 Unknown COMPLETE BLOOD COUNT 6438724 MCV 95.6 fL 6 Unknown COMPLETE BLOOD COUNT 2364155 MCH 31.3 pg 6 Unknown COMPLETE BLOOD COUNT 1399010 MCHC 32.7 g/dL 6 Unknown COMPLETE BLOOD COUNT 4782972 PLATELET COUNT 191 10e9/L 04/2015 Unknown COMPLETE BLOOD COUNT 9862587 Mean Plt Volume 11.7 fL 04/2015 Unknown COMPLETE BLOOD COUNT 8606026 Neut Auto 64.2 % 6 Unknown COMPLETE BLOOD COUNT 3180221 Lymph Auto 25.9 % 03/06/20 16 Unknown COMPLETE BLOOD COUNT 2673449 [place] Auto 7.8 % 6 Unknown COMPLETE BLOOD COUNT 7904976 RDW 13.4 % 6 Unknown COMPLETE BLOOD COUNT 8065704 Eos Auto 2.0 % 6 Unknown COMPLETE BLOOD COUNT 5472324 Baso Auto 0.1 % 6 Unknown COMPLETE BLOOD COUNT 1080648 Neutrophil Abs 5.46 10e9/L Unknown COMPLETE BLOOD COUNT 9690510 Lymphocyte Abs 2.20 10e9/L Unknown COMPLETE BLOOD COUNT 0431014 Monocyte Abs 0.66 10e9/L 04/2015 Unknown COMPLETE BLOOD COUNT 2486524 Eosinophil Abs 0.17 10e9/L Unknown COMPLETE BLOOD COUNT 5126590 RDW-SD 45.0 fL 6 Unknown COMPLETE BLOOD COUNT 1145602 Basophil Abs 0.01 10e9/L 04/2015 Unknown FREE T4 69741 T4 Free 1.34 ng/dL 03/06/2016 Unknown MEAN GLUC 7689015 Calc Mean Gluc 140 mg/dL 03/06/2016 Unkn own COMPREHENSIVE METABOLIC 64105 AST 15 U/L 2015 Unknown COMPREHENSIVE METABOLIC 36306 ALT 18 U/L 2015 Unknown COMPREHENSIVE METABOLIC 38954 BUN 21 mg/dL 2015 Unknown COMPREHENSIVE METABOLIC 22121 ALBUMIN 4.3 g/dL 2015 Unknown COMPREHENSIVE METABOLIC 82814 CHLORIDE 103 mmol/L 03/06 Unknown COMPREHENSIVE METABOLIC 08097 Bili Total 0.4 mg/dL 03/06 Unknown COMPREHENSIVE METABOLIC 96898 ALK PHOS 68 U/L 2015 Unknown COMPREHENSIVE METABOLIC 09556 SODIUM 140 mmol/L 03/06 Unknown COMPREHENSIVE METABOLIC 33855 CREATININE 1.31 mg/dL 04/2015 Unknown COMPREHENSIVE METABOLIC 37787 CALCIUM 9.4 mg/dL 2015 Unknown COMPREHENSIVE METABOLIC 37933 POTASSIUM 4.8 mmol/L 03/06 Unknown COMPREHENSIVE METABOLIC 84278 Total Protein 6.6 g/dL Unknown COMPREHENSIVE METABOLIC 39159 Glucose 142 mg/dL 2015 Unknown COMPREHENSIVE METABOLIC 35561 Bicarbonate 29 mmol/L 04/2015 Unknown COMPREHENSIVE METABOLIC 26984 AGAP 8 mmol/L 2015 Unknown THYROID STIMULATING HORMONE 45664 TSH 2.288 uIU/mL 03/06/2016 Unknown LIPID GROUP 36149 Cholesterol 154 mg/dL 03/06/2016 Unkno wn LIPID GROUP 06508 Triglyceride 266 mg/dL 03/06/2016 Unkn own LIPID GROUP 63484 HDL CHOLESTEROL 38 mg/dL 03/06/2016 U nknown LIPID GROUP 16023 Chol/HDL Ratio 4.05 ratio 03/06/2016 U nknown LIPID GROUP 84970 NON-HDL Chol 116 mg/dL 03/06/2016 Unkn own LIPID GROUP 18358 LDL Cholesterol 63 mg/dL 03/06/2016 U nknown MEAN GLUC Mean Glucose 128 mg/dL 08/31/2015 Unknow n COMPLETE BLOOD COUNT 9782335 WBC 8.4 10e9/L 08/31/19 16 Unknown COMPLETE BLOOD COUNT 5606916 RBC 4.12 10e12/L 2015 Unknown COMPLETE BLOOD COUNT 2176316 HEMOGLOBIN 12.8 g/dL 08/31/19 16 Unknown COMPLETE BLOOD COUNT 0719928 HEMATOCRIT 39.6 % 08/31/19 16 Unknown COMPLETE BLOOD COUNT 6961053 MCV 96.1 fL 6 Unknown COMPLETE BLOOD COUNT 2226663 MCH 31.1 pg 6 Unknown COMPLETE BLOOD COUNT 4785725 MCHC 32.3 g/dL 6 Unknown COMPLETE BLOOD COUNT 7297444 PLATELET COUNT 184 10e9/L Unknown COMPLETE BLOOD COUNT 7655430 Mean Plt Volume 12.0 fL Unknown COMPLETE BLOOD COUNT 6826365 Neut Auto 59.8 % 6 Unknown COMPLETE BLOOD COUNT 9472600 Lymph Auto 27.9 % 08/31/19 16 Unknown COMPLETE BLOOD COUNT 0385633 [place] Auto 9.1 % 6 Unknown COMPLETE BLOOD COUNT 0446089 RDW 13.6 % 6 Unknown COMPLETE BLOOD COUNT 7524496 Eos Auto 3.1 % 6 Unknown COMPLETE BLOOD COUNT 4080178 Baso Auto 0.1 % 6 Unknown COMPLETE BLOOD COUNT 0571631 Neutrophil Abs 5.02 10e9/L Unknown COMPLETE BLOOD COUNT 7435800 Lymphoctye Abs 2.34 10e9/L Unknown COMPLETE BLOOD COUNT 8368566 Monocyte Abs 0.76 10e9/L 08/05 Unknown COMPLETE BLOOD COUNT 3787992 Eosinophil Abs 0.26 10e9/L Unknown COMPLETE BLOOD COUNT 0047987 RDW-SD 46.3 fL 6 Unknown COMPLETE BLOOD COUNT 1081933 Basophil Abs 0.01 10e9/L 08/05 Unknown GLYCOSYLATED HEMOGLOBIN TEST 22882 Hgb A1c 05185-8 6.1 % 0 08/31/2015 Unknown GFR CALC 2549651 GFR Non Afr Amr >60 mL/min 08/31/2015 Un known GFR CALC 2586453 GFR Afr Amr >60 mL/min 08/31/2015 Unknow n FREE T4 75084 T4 Free 1.21 ng/dL 08/31/2015 Unknown THYROID STIMULATING HORMONE 47185 TSH 2.988 uIU/mL 08/31/2015 Unknown COMPREHENSIVE METABOLIC 70101 AST 16 U/L 2015 Unknown COMPREHENSIVE METABOLIC 60652 ALT 19 U/L 2015 Unknown COMPREHENSIVE METABOLIC 65865 BUN 17 mg/dL 2015 Unknown COMPREHENSIVE METABOLIC 04345 ALBUMIN 4.3 g/dL 2015 Unknown COMPREHENSIVE METABOLIC 50073 CHLORIDE 107 mmol/L 08/30 Unknown COMPREHENSIVE METABOLIC 14487 Bili Total 0.4 mg/dL 08/30 Unknown COMPREHENSIVE METABOLIC 31826 ALK PHOS 66 U/L 2015 Unknown COMPREHENSIVE METABOLIC 05729 SODIUM 140 mmol/L 08/30 Unknown COMPREHENSIVE METABOLIC 72701 CREATININE 1.07 mg/dL 08/05 Unknown COMPREHENSIVE METABOLIC 61474 CALCIUM 9.5 mg/dL 2015 Unknown COMPREHENSIVE METABOLIC 46206 POTASSIUM 4.5 mmol/L 08/30 Unknown COMPREHENSIVE METABOLIC 92053 Total Protein 6.7 g/dL Unknown COMPREHENSIVE METABOLIC 46512 Glucose 122 mg/dL 2015 Unknown COMPREHENSIVE METABOLIC 72645 Bicarbonate 26 mmol/L 08/05 Unknown COMPREHENSIVE METABOLIC 72678 AGAP 7 mmol/L 2015 Unknown LIPID GROUP 27337 Cholesterol 171 mg/dL 08/31/2015 Unkno wn LIPID GROUP 40437 Triglyceride 428 mg/dL 08/31/2015 Unkn own LIPID GROUP 66116 HDL CHOLESTEROL 35 mg/dL 08/31/2015 U nknown LIPID GROUP 50052 Chol/HDL Ratio 4.89 ratio 08/31/2015 U nknown LIPID GROUP 23693 NON-HDL Chol 136 mg/dL 08/31/2015 Unkn own LIPID GROUP 96465 LDL Cholesterol 50 mg/dL 08/31/2015 U nknown PSA EQUIMOLAR JERSON 91949 PSA Total 0.47 ng/mL 6 Unknown GFR CALC 3656199 GFR AA >60 ML/MIN 01/12/2015 Unknown GFR CALC 4715894 GFR NON-AA >60 ML/MIN 01/12/2015 Unknown COMPREHENSIVE METABOLIC 19290 AST 18 U/L 2014 Unknown COMPREHENSIVE METABOLIC 89714 ALT 19 IU/L 2014 Unknown COMPREHENSIVE METABOLIC 73139 BUN 19 MG/DL 2014 Unknown COMPREHENSIVE METABOLIC 88878 ALBUMIN 4.7 GM/DL 2014 Unknown COMPREHENSIVE METABOLIC 54097 CHLORIDE 104 MMOL/L 01/12 Unknown COMPREHENSIVE METABOLIC 04525 BILI TOT 0.8 MG/DL 2014 Unknown COMPREHENSIVE METABOLIC 18429 ALK PHOS 58 U/L 2014 Unknown COMPREHENSIVE METABOLIC 37977 SODIUM 139 MMOL/L 01/12 Unknown COMPREHENSIVE METABOLIC 32690 CREATININE 1.09 MG/DL 12/2014 Unknown COMPREHENSIVE METABOLIC 23606 CALCIUM 9.6 MG/DL 2014 Unknown COMPREHENSIVE METABOLIC 26602 POTASSIUM 4.4 MMOL/L 01/12 Unknown COMPREHENSIVE METABOLIC 61396 PROT TOT 6.7 GM/DL 2014 Unknown COMPREHENSIVE METABOLIC 09348 Glucose 109 MG/DL 2014 Unknown COMPREHENSIVE METABOLIC 58441 BICARB 27 MMOL/L 2014 Unknown COMPREHENSIVE METABOLIC 38538 ANION GAP 8 MEQ/L 2014 Unknown LIPID GROUP 05358 HDL TEST 36 MG/DL 01/12/2015 Unknown LIPID GROUP 57973 TRIG 220 MG/DL 01/12/2015 Unknown LIPID GROUP 67158 TEST LDL 58 MG/DL 01/12/2015 Unknown LIPID GROUP 05550 CHOL 138 MG/DL 01/12/2015 Unknown LIPID GROUP 51669 RCHOL/HDL 3.83 RATIO 01/12/2015 Unknow n LIPID GROUP 02832 NON-HDL CH 102 MG/DL 01/12/2015 Unknow n GLYCOSYLATED HEMOGLOBIN TEST 24824 A1C HPLC 36935-4 6.1 % 1 Unknown COMPLETE BLOOD COUNT 0100286 WBC 7.1 10e9/L 01/13/20 15 Unknown COMPLETE BLOOD COUNT [id number] RBC 4.38 10e12/L 2014 Unknown COMPLETE BLOOD COUNT 0454596 HGB 13.7 g/dL 5 Unknown COMPLETE BLOOD COUNT 8801611 HCT DET 41.3 % 5 Unknown COMPLETE BLOOD COUNT 5623782 MCV 94.3 fL 5 Unknown COMPLETE BLOOD COUNT 5681731 MCH 31.3 pg 5 Unknown COMPLETE BLOOD COUNT 8958784 MCHC 33.2 g/dL 5 Unknown COMPLETE BLOOD COUNT 2926942 PLT 174 10e9/L 01/13/20 15 Unknown COMPLETE BLOOD COUNT 8183823 MPV 11.8 fL 5 Unknown COMPLETE BLOOD COUNT 6606217 SAMIR % 61.3 % 5 Unknown COMPLETE BLOOD COUNT 0149185 LY % 28.3 % 5 Unknown COMPLETE BLOOD COUNT 3809180 MON % 7.6 % 5 Unknown COMPLETE BLOOD COUNT 5015505 EOS % 2.7 % 5 Unknown COMPLETE BLOOD COUNT 6251159 BASO % 0.1 % 5 Unknown COMPLETE BLOOD COUNT 5892881 RDW 13.1 % 5 Unknown COMPLETE BLOOD COUNT 7297862 ABS SAMIR 4.35 10e9/L 015 Unknown COMPLETE BLOOD COUNT 2618465 ABS LYMPH 2.01 10e9/L 015 Unknown COMPLETE BLOOD COUNT [id number] ABS MONO 0.54 10e9/L 015 Unknown COMPLETE BLOOD COUNT 4447642 ABS EOS 0.19 10e9/L 015 Unknown COMPLETE BLOOD COUNT 5260993 ABS BASO 0.01 10e9/L 015 Unknown COMPLETE BLOOD COUNT 2951637 RDW-SD 43.9 fL 5 Unknown GLYCOSYLATED HEMOGLOBIN TEST 07896 A1C HPLC 86736-0 6.1 % 0 08/15/2014 Unknown COMPLETE BLOOD COUNT 8242745 WBC 9.7 10e9/L 08/16/19 15 Unknown COMPLETE BLOOD COUNT 6096373 RBC 4.29 10e12/L 2014 Unknown COMPLETE BLOOD COUNT 5765282 HGB 13.3 g/dL 5 Unknown COMPLETE BLOOD COUNT 2151576 HCT DET 40.5 % 5 Unknown COMPLETE BLOOD COUNT 3500109 MCV 94.4 fL 5 Unknown COMPLETE BLOOD COUNT 0932751 MCH 31.0 pg 5 Unknown COMPLETE BLOOD COUNT 3864979 MCHC 32.8 g/dL 5 Unknown COMPLETE BLOOD COUNT 0481702 PLT 227 10e9/L 08/16/19 15 Unknown COMPLETE BLOOD COUNT 0372577 MPV 11.0 fL 5 Unknown COMPLETE BLOOD COUNT 2095258 SAMIR % 66.4 % 5 Unknown COMPLETE BLOOD COUNT 8496598 LY % 23.7 % 5 Unknown COMPLETE BLOOD COUNT 3892603 MON % 8.1 % 5 Unknown COMPLETE BLOOD COUNT 5101018 EOS % 1.6 % 5 Unknown COMPLETE BLOOD COUNT 0712328 BASO % 0.2 % 5 Unknown COMPLETE BLOOD COUNT 3743500 RDW 13.4 % 5 Unknown COMPLETE BLOOD COUNT 1616038 ABS SAMIR 6.44 10e9/L 015 Unknown COMPLETE BLOOD COUNT 0516103 ABS LYMPH 2.30 10e9/L 015 Unknown COMPLETE BLOOD COUNT [id number] ABS MONO 0.79 10e9/L 015 Unknown COMPLETE BLOOD COUNT 5601138 ABS EOS 0.16 10e9/L 015 Unknown COMPLETE BLOOD COUNT 8092861 ABS BASO 0.02 10e9/L 015 Unknown COMPLETE BLOOD COUNT 1145910 RDW-SD 44.7 fL 5 Unknown COMPREHENSIVE METABOLIC 76813 AST 17 U/L 2014 Unknown COMPREHENSIVE METABOLIC 51106 ALT 23 IU/L 2014 Unknown COMPREHENSIVE METABOLIC 72203 BUN 16 MG/DL 2014 Unknown COMPREHENSIVE METABOLIC 47745 ALBUMIN 4.3 GM/DL 2014 Unknown COMPREHENSIVE METABOLIC 39384 CHLORIDE 107 MMOL/L 08/15 Unknown COMPREHENSIVE METABOLIC 75251 BILI TOT 0.4 MG/DL 2014 Unknown COMPREHENSIVE METABOLIC 01580 ALK PHOS 91 U/L 2014 Unknown COMPREHENSIVE METABOLIC 71280 SODIUM 139 MMOL/L 08/15 Unknown COMPREHENSIVE METABOLIC 85434 CREATININE 1.07 MG/DL 08/04 Unknown COMPREHENSIVE METABOLIC 98586 CALCIUM 9.6 MG/DL 2014 Unknown COMPREHENSIVE METABOLIC 61835 POTASSIUM 4.6 MMOL/L 08/15 Unknown COMPREHENSIVE METABOLIC 21551 PROT TOT 6.7 GM/DL 2014 Unknown COMPREHENSIVE METABOLIC 94841 Glucose 111 MG/DL 2014 Unknown COMPREHENSIVE METABOLIC 84972 BICARB 27 MMOL/L 2014 Unknown COMPREHENSIVE METABOLIC 15697 ANION GAP 5 MEQ/L 2014 Unknown GFR CALC 7133759 GFR AA >60 ML/MIN 08/15/2014 Unknown GFR CALC 0090223 GFR NON-AA >60 ML/MIN 08/15/2014 Unknown THYROID STIMULATING HORMONE 04974 TSH 1.598 uIU/ML 08/15/2014 Unknown LIPID GROUP 08477 HDL TEST 33 MG/DL 08/15/2014 Unknown LIPID GROUP 00358 TRIG 187 MG/DL 08/15/2014 Unknown LIPID GROUP 40987 TEST LDL 58 MG/DL 08/15/2014 Unknown LIPID GROUP 94121 CHOL 128 MG/DL 08/15/2014 Unknown LIPID GROUP 52565 RCHOL/HDL 3.88 RATIO 08/15/2014 Unknow n LIPID GROUP 21466 NON-HDL CH 95 MG/DL 08/15/2014 Unknow n PSA EQUIMOLAR JERSON 24448 PSA EQ 0.70 NG/ML 5 Unknown FREE T4 77466 FREE T4 1.32 NG/DL 08/15/2014 Unknown GFR CALC 8032643 GFR AA >60 ML/MIN 12/14/2013 Unknown GFR CALC 6651682 GFR NON-AA 58.0L ML/MIN 12/14/2013 Unkno wn COMPLETE BLOOD COUNT 3688330 WBC 8.7 10e9/L 12/15/19 14 Unknown COMPLETE BLOOD COUNT 4126009 RBC 4.32 10e12/L 2013 Unknown COMPLETE BLOOD COUNT 1420068 HGB 13.5 g/dL 4 Unknown COMPLETE BLOOD COUNT 7698572 HCT DET 40.6 % 4 Unknown COMPLETE BLOOD COUNT 3491878 MCV 94.0 fL 4 Unknown COMPLETE BLOOD COUNT 4882804 MCH 31.3 pg 4 Unknown COMPLETE BLOOD COUNT 5424671 MCHC 33.3 g/dL 4 Unknown COMPLETE BLOOD COUNT 9448057 PLT 205 10e9/L 12/15/19 14 Unknown COMPLETE BLOOD COUNT 4489611 MPV 11.7 fL 4 Unknown COMPLETE BLOOD COUNT 0129643 SAMIR % 62.5 % 4 Unknown COMPLETE BLOOD COUNT 0377212 LY % 26.9 % 4 Unknown COMPLETE BLOOD COUNT 7164528 MON % 8.8 % 4 Unknown COMPLETE BLOOD COUNT 8841101 EOS % 1.7 % 4 Unknown COMPLETE BLOOD COUNT 6821907 BASO % 0.1 % 4 Unknown COMPLETE BLOOD COUNT 9802257 RDW 13.4 % 4 Unknown COMPLETE BLOOD COUNT 9350412 ABS SAMIR 5.44 10e9/L 014 Unknown COMPLETE BLOOD COUNT [id number] ABS LYMPH 2.34 10e9/L 014 Unknown COMPLETE BLOOD COUNT [id number] ABS MONO 0.77 10e9/L 014 Unknown COMPLETE BLOOD COUNT [id number] ABS EOS 0.15 10e9/L 014 Unknown COMPLETE BLOOD COUNT [id number] ABS BASO 0.01 10e9/L 014 Unknown COMPLETE BLOOD COUNT [id number] RDW-SD 44.7 fL 4 Unknown COMPREHENSIVE METABOLIC 50575 AST 14 U/L 2013 Unknown COMPREHENSIVE METABOLIC 21082 ALT 12 IU/L 2013 Unknown COMPREHENSIVE METABOLIC 75407 BUN 24 MG/DL 2013 Unknown COMPREHENSIVE METABOLIC 87467 ALBUMIN 4.5 GM/DL 2013 Unknown COMPREHENSIVE METABOLIC 52937 CHLORIDE 104 MMOL/L 12/14 Unknown COMPREHENSIVE METABOLIC 57634 BILI TOT 0.6 MG/DL 2013 Unknown COMPREHENSIVE METABOLIC 32468 ALK PHOS 82 U/L 2013 Unknown COMPREHENSIVE METABOLIC 60425 SODIUM 135 MMOL/L 12/14 Unknown COMPREHENSIVE METABOLIC 02713 CREATININE 1.25 MG/DL 12/05 Unknown COMPREHENSIVE METABOLIC 66649 CALCIUM 9.8 MG/DL 2013 Unknown COMPREHENSIVE METABOLIC 80272 POTASSIUM 4.7 MMOL/L 12/14 Unknown COMPREHENSIVE METABOLIC 51840 PROT TOT 6.7 GM/DL 2013 Unknown COMPREHENSIVE METABOLIC 25855 Glucose 126 MG/DL 2013 Unknown COMPREHENSIVE METABOLIC 23812 BICARB 27 MMOL/L 2013 Unknown COMPREHENSIVE METABOLIC 10978 ANION GAP 4 MEQ/L 2013 Unknown THYROID STIMULATING HORMONE 13569 TSH 3.281 uIU/ML 12/14/2013 Unknown FREE T4 65771 FREE T4 1.28 NG/DL 12/14/2013 Unknown LIPID GROUP 74900 HDL TEST 36 MG/DL 12/14/2013 Unknown LIPID GROUP 21543 TRIG 253 MG/DL 12/14/2013 Unknown LIPID GROUP 41818 TEST LDL 56 MG/DL 12/14/2013 Unknown LIPID GROUP 27027 CHOL 143 MG/DL 12/14/2013 Unknown LIPID GROUP 37006 RCHOL/HDL 3.97 RATIO 12/14/2013 Unknow n LIPID GROUP 15500 NON-HDL CH 107 MG/DL 12/14/2013 Unknow n GLYCOSYLATED HEMOGLOBIN TEST 35674 A1C HPLC 26954-9 6.1 % 0 12/14/2013 Unknown GLYCOSYLATED HEMOGLOBIN TEST 46826 A1C HPLC 90037-3 6.0 % 0 06/08/2013 Unknown LIPID GROUP 71715 HDL TEST 39 MG/DL 06/08/2013 Unknown LIPID GROUP 67658 TRIG 166 MG/DL 06/08/2013 Unknown LIPID GROUP 03513 TEST LDL 86 MG/DL 06/08/2013 Unknown LIPID GROUP 95120 CHOL 158 MG/DL 06/08/2013 Unknown LIPID GROUP 11035 RCHOL/HDL 4.05 RATIO 06/08/2013 Unknow n COMPREHENSIVE METABOLIC 26934 AST 17 U/L 2013 Unknown COMPREHENSIVE METABOLIC 47225 ALT 25 IU/L 2013 Unknown COMPREHENSIVE METABOLIC 41657 BUN 18 MG/DL 2013 Unknown COMPREHENSIVE METABOLIC 25525 ALBUMIN 4.5 GM/DL 2013 Unknown COMPREHENSIVE METABOLIC 80873 CHLORIDE 103 MMOL/L 06/08 Unknown COMPREHENSIVE METABOLIC 32048 BILI TOT 0.4 MG/DL 2013 Unknown COMPREHENSIVE METABOLIC 35862 ALK PHOS 72 U/L 2013 Unknown COMPREHENSIVE METABOLIC 27327 SODIUM 137 MMOL/L 06/08 Unknown COMPREHENSIVE METABOLIC 46602 CREATININE 1.07 MG/DL 08/2013 Unknown COMPREHENSIVE METABOLIC 62600 CALCIUM 9.7 MG/DL 2013 Unknown COMPREHENSIVE METABOLIC 50536 POTASSIUM 4.7 MMOL/L 06/08 Unknown COMPREHENSIVE METABOLIC 90712 PROT TOT 6.6 GM/DL 2013 Unknown COMPREHENSIVE METABOLIC 22713 Glucose 130 MG/DL 2013 Unknown COMPREHENSIVE METABOLIC 33528 BICARB 25 MMOL/L 2013 Unknown COMPREHENSIVE METABOLIC 99379 ANION GAP 9 MEQ/L 2013 Unknown FREE T4 61094 FREE T4 1.29 NG/DL 06/08/2013 Unknown THYROID STIMULATING HORMONE 82324 TSH 2.445 uIU/ML 06/08/2013 Unknown GFR CALC 2281428 GFR AA >60 ML/MIN 06/08/2013 Unknown GFR CALC 9494899 GFR NON-AA >60 ML/MIN 06/08/2013 Unknown COMPLETE BLOOD COUNT 5571072 WBC 8.2 10e9/L 06/09/19 14 Unknown COMPLETE BLOOD COUNT 7346207 RBC 4.63 10e12/L 2013 Unknown COMPLETE BLOOD COUNT 3543212 HGB 14.1 g/dL 4 Unknown COMPLETE BLOOD COUNT [id number] HCT DET 42.6 % 4 Unknown COMPLETE BLOOD COUNT 3791748 MCV 92.0 fL 4 Unknown COMPLETE BLOOD COUNT 8351047 MCH 30.5 pg 4 Unknown COMPLETE BLOOD COUNT 6145157 MCHC 33.1 g/dL 4 Unknown COMPLETE BLOOD COUNT [id number] PLT 222 10e9/L 06/09/19 14 Unknown COMPLETE BLOOD COUNT 8443123 MPV 10.8 fL 4 Unknown COMPLETE BLOOD COUNT 9991639 SAMIR % 60.8 % 4 Unknown COMPLETE BLOOD COUNT 1368831 LY % 29.2 % 4 Unknown COMPLETE BLOOD COUNT [id number] MON % 7.6 % 4 Unknown COMPLETE BLOOD COUNT 8463405 EOS % 2.3 % 4 Unknown COMPLETE BLOOD COUNT 3688419 BASO % 0.1 % 4 Unknown COMPLETE BLOOD COUNT 8499881 RDW 13.7 % 4 Unknown COMPLETE BLOOD COUNT [id number] ABS SAMIR 4.99 10e9/L 014 Unknown COMPLETE BLOOD COUNT 3650581 ABS LYMPH 2.39 10e9/L 014 Unknown COMPLETE BLOOD COUNT 8440841 ABS MONO 0.62 10e9/L 014 Unknown COMPLETE BLOOD COUNT [id number] ABS EOS 0.19 10e9/L 014 Unknown COMPLETE BLOOD COUNT 7243148 ABS BASO 0.01 10e9/L 014 Unknown COMPLETE BLOOD COUNT [id number] RDW-SD 45.2 fL 4 Unknown LIPID GROUP 31827 HDL TEST 40 MG/DL 11/11/2012 Unknown LIPID GROUP 86720 TRIG 153 MG/DL 11/11/2012 Unknown LIPID GROUP 03516 TEST LDL 71 MG/DL 11/11/2012 Unknown LIPID GROUP 70644 CHOL 142 MG/DL 11/11/2012 Unknown LIPID GROUP 60863 RCHOL/HDL 3.55 RATIO 11/11/2012 Unknow n GFR CALC 1475644 GFR AA >60 ML/MIN 11/11/2012 Unknown GFR CALC 3683711 GFR NON-AA 57.0L ML/MIN 11/11/2012 Unkno wn HEMOGLOBIN A1C (GLYCOSYLATED) 6768050 A1C HPLC 39120-3 5.9 % 11/11/2012 Unknown THYROID STIMULATING HORMONE 19280 TSH 2.439 uIU/ML 11/11/2012 Unknown COMPLETE BLOOD COUNT 4944591 WBC 8.5 10e9/L 11/12/19 13 Unknown COMPLETE BLOOD COUNT 3284304 RBC 4.42 10e12/L 2012 Unknown COMPLETE BLOOD COUNT 9172042 HGB 13.7 g/dL 3 Unknown COMPLETE BLOOD COUNT 5400423 HCT DET 41.3 % 3 Unknown COMPLETE BLOOD COUNT 0025237 MCV 93.4 fL 3 Unknown COMPLETE BLOOD COUNT 0519899 MCH 31.0 pg 3 Unknown COMPLETE BLOOD COUNT 6710331 MCHC 33.2 g/dL 3 Unknown COMPLETE BLOOD COUNT 5531553 PLT 220 10e9/L 11/12/19 13 Unknown COMPLETE BLOOD COUNT 6196863 MPV 10.8 fL 3 Unknown COMPLETE BLOOD COUNT 3790765 SAMIR % 60.4 % 3 Unknown COMPLETE BLOOD COUNT 8461798 LY % 28.7 % 3 Unknown COMPLETE BLOOD COUNT 0538532 MON % 8.0 % 3 Unknown COMPLETE BLOOD COUNT 6926036 EOS % 2.8 % 3 Unknown COMPLETE BLOOD COUNT 6014269 BASO % 0.1 % 3 Unknown COMPLETE BLOOD COUNT 2714510 RDW 13.7 % 3 Unknown COMPLETE BLOOD COUNT 3697896 ABS SAMIR 5.13 10e9/L 013 Unknown COMPLETE BLOOD COUNT 9929883 ABS LYMPH 2.44 10e9/L 013 Unknown COMPLETE BLOOD COUNT [id number] ABS MONO 0.68 10e9/L 013 Unknown COMPLETE BLOOD COUNT 6864002 ABS EOS 0.24 10e9/L 013 Unknown COMPLETE BLOOD COUNT 5679125 ABS BASO 0.01 10e9/L 013 Unknown COMPLETE BLOOD COUNT 2753651 RDW-SD 45.6 fL 3 Unknown COMPREHENSIVE METABOLIC 55449 AST 19 U/L 2012 Unknown COMPREHENSIVE METABOLIC 80817 ALT 28 IU/L 2012 Unknown COMPREHENSIVE METABOLIC 66312 BUN 31 MG/DL 2012 Unknown COMPREHENSIVE METABOLIC 53921 ALBUMIN 4.7 GM/DL 2012 Unknown COMPREHENSIVE METABOLIC 04153 CHLORIDE 106 MMOL/L 11/11 Unknown COMPREHENSIVE METABOLIC 11191 BILI TOT 0.5 MG/DL 2012 Unknown COMPREHENSIVE METABOLIC 87979 ALK PHOS 64 U/L 2012 Unknown COMPREHENSIVE METABOLIC 44433 SODIUM 136 MMOL/L 11/11 Unknown COMPREHENSIVE METABOLIC 18320 CREATININE 1.27 MG/DL 11/2012 Unknown COMPREHENSIVE METABOLIC 02062 CALCIUM 9.4 MG/DL 2012 Unknown COMPREHENSIVE METABOLIC 48979 POTASSIUM 4.9 MMOL/L 11/11 Unknown COMPREHENSIVE METABOLIC 98817 PROT TOT 6.7 GM/DL 2012 Unknown COMPREHENSIVE METABOLIC 93717 Glucose 108 MG/DL 2012 Unknown COMPREHENSIVE METABOLIC 37632 BICARB 21 MMOL/L 2012 Unknown COMPREHENSIVE METABOLIC 09722 ANION GAP 9 MEQ/L 2012 Unknown THYROID STIMULATING HORMONE 29800 TSH 2.572 uIU/ML 05/04/2012 Unknown COMPLETE BLOOD COUNT 9513930 WBC 9.3 10e9/L 05/04/19 13 Unknown COMPLETE BLOOD COUNT 5238111 RBC 4.43 10e12/L 2012 Unknown COMPLETE BLOOD COUNT 9815595 HGB 14.2 g/dL 3 Unknown COMPLETE BLOOD COUNT 5402507 HCT DET 41.1 % 3 Unknown COMPLETE BLOOD COUNT 5299778 MCV 92.8 fL 3 Unknown COMPLETE BLOOD COUNT 9361789 MCH 32.1 pg 3 Unknown COMPLETE BLOOD COUNT [id number] MCHC 34.5 g/dL 3 Unknown COMPLETE BLOOD COUNT 9299729 PLT 193 10e9/L 05/04/19 13 Unknown COMPLETE BLOOD COUNT 9516330 MPV 10.8 fL 3 Unknown COMPLETE BLOOD COUNT 2568363 SAMIR % 63.0 % 3 Unknown COMPLETE BLOOD COUNT 1383845 LY % 25.3 % 3 Unknown COMPLETE BLOOD COUNT 6464474 MON % 9.1 % 3 Unknown COMPLETE BLOOD COUNT 3725725 EOS % 2.5 % 3 Unknown COMPLETE BLOOD COUNT 9236631 BASO % 0.1 % 3 Unknown COMPLETE BLOOD COUNT 5912439 RDW 12.6 % 3 Unknown COMPLETE BLOOD COUNT 7221538 ABS SAMIR 5.86 10e9/L 013 Unknown COMPLETE BLOOD COUNT 5443628 ABS LYMPH 2.35 10e9/L 013 Unknown COMPLETE BLOOD COUNT 4002227 ABS MONO 0.85 10e9/L 013 Unknown COMPLETE BLOOD COUNT 6129612 ABS EOS 0.23 10e9/L 013 Unknown COMPLETE BLOOD COUNT 2542931 ABS BASO 0.01 10e9/L 013 Unknown COMPLETE BLOOD COUNT 2945194 RDW-SD 41.2 fL 3 Unknown LIPID GROUP 61805 HDL TEST 35 MG/DL 05/04/2012 Unknown LIPID GROUP 83630 TRIG 236 MG/DL 05/04/2012 Unknown LIPID GROUP 32729 TEST LDL 64 MG/DL 05/04/2012 Unknown LIPID GROUP 60281 CHOL 146 MG/DL 05/04/2012 Unknown LIPID GROUP 95560 RCHOL/HDL 4.17 RATIO 05/04/2012 Unknow n COMPREHENSIVE METABOLIC 20582 AST 23 U/L 2012 Unknown COMPREHENSIVE METABOLIC 18130 ALT 33 IU/L 2012 Unknown COMPREHENSIVE METABOLIC 95080 BUN 16 MG/DL 2012 Unknown COMPREHENSIVE METABOLIC 74633 ALBUMIN 4.8 GM/DL 2012 Unknown COMPREHENSIVE METABOLIC 50277 CHLORIDE 104 MMOL/L 05/04 Unknown COMPREHENSIVE METABOLIC 96839 BILI TOT 0.5 MG/DL 2012 Unknown COMPREHENSIVE METABOLIC 31830 ALK PHOS 70 U/L 2012 Unknown COMPREHENSIVE METABOLIC 25918 SODIUM 138 MMOL/L 05/04 Unknown COMPREHENSIVE METABOLIC 61700 CREATININE 1.08 MG/DL 04/07 Unknown COMPREHENSIVE METABOLIC 69577 CALCIUM 9.7 MG/DL 2012 Unknown COMPREHENSIVE METABOLIC 07203 POTASSIUM 4.4 MMOL/L 05/04 Unknown COMPREHENSIVE METABOLIC 53335 PROT TOT 6.8 GM/DL 2012 Unknown COMPREHENSIVE METABOLIC 55269 Glucose 114 MG/DL 2012 Unknown COMPREHENSIVE METABOLIC 95898 BICARB 27 MMOL/L 2012 Unknown COMPREHENSIVE METABOLIC 98700 ANION GAP 7 MEQ/L 2012 Unknown FREE T4 58721 FREE T4 1.11 NG/DL 05/04/2012 Unknown GFR CALC 6656172 GFR AA >60 ML/MIN 05/04/2012 Unknown GFR CALC 6537678 GFR NON-AA >60 ML/MIN 05/04/2012 Unknown GLYCOSYLATED HEMOGLOBIN TEST 52999 A1C HPLC 84237-5 5.8 % 0 10/29/2011 Unknown COMPREHENSIVE METABOLIC 07430 AST 17 U/L 2011 Unknown COMPREHENSIVE METABOLIC 93806 ALT 21 IU/L 2011 Unknown COMPREHENSIVE METABOLIC 23805 BUN 17 MG/DL 2011 Unknown COMPREHENSIVE METABOLIC 31271 ALBUMIN 4.8 GM/DL 2011 Unknown COMPREHENSIVE METABOLIC 59906 CHLORIDE 106 MMOL/L 10/28 Unknown COMPREHENSIVE METABOLIC 11332 BILI TOT 0.6 MG/DL 2011 Unknown COMPREHENSIVE METABOLIC 11805 ALK PHOS 57 U/L 2011 Unknown COMPREHENSIVE METABOLIC 03844 SODIUM 139 MMOL/L 10/28 Unknown COMPREHENSIVE METABOLIC 91816 CREATININE 1.08 MG/DL 10/05 Unknown COMPREHENSIVE METABOLIC 53632 CALCIUM 9.6 MG/DL 2011 Unknown COMPREHENSIVE METABOLIC 67278 POTASSIUM 4.4 MMOL/L 10/28 Unknown COMPREHENSIVE METABOLIC 98515 PROT TOT 6.9 GM/DL 2011 Unknown COMPREHENSIVE METABOLIC 00361 Glucose 104 MG/DL 2011 Unknown COMPREHENSIVE METABOLIC 47815 BICARB 25 MMOL/L 2011 Unknown COMPREHENSIVE METABOLIC 23578 ANION GAP 8 MEQ/L 2011 Unknown LIPID GROUP 08154 HDL TEST 39 MG/DL 10/29/2011 Unknown LIPID GROUP 02926 TRIG 176 MG/DL 10/29/2011 Unknown LIPID GROUP 09261 TEST LDL 70 MG/DL 10/29/2011 Unknown LIPID GROUP 06056 CHOL 144 MG/DL 10/29/2011 Unknown LIPID GROUP 89357 RCHOL/HDL 3.69 RATIO 10/29/2011 Unknow n GFR CALC 5824759 GFR AA >60 ML/MIN 10/29/2011 Unknown GFR CALC 5461248 GFR NON-AA >60 ML/MIN 10/29/2011 Unknown GFR CALC 3959765 GFR AA >60 ML/MIN 03/14/2011 Unknown GFR CALC 4600608 GFR NON-AA >60 ML/MIN 03/14/2011 Unknown GLYCOSYLATED HEMOGLOBIN TEST 16086 A1C HPLC 49658-8 5.7 % 1 05/15/2010 Unknown COMPREHENSIVE METABOLIC 92288 AST 18 U/L 2010 Unknown COMPREHENSIVE METABOLIC 60668 ALT 25 IU/L 2010 Unknown COMPREHENSIVE METABOLIC 87457 BUN 15 MG/DL 2010 Unknown COMPREHENSIVE METABOLIC 07925 ALBUMIN 4.6 GM/DL 2010 Unknown COMPREHENSIVE METABOLIC 92272 CHLORIDE 107 MMOL/L 03/14 Unknown COMPREHENSIVE METABOLIC 06012 BILI TOT 0.6 MG/DL 2010 Unknown COMPREHENSIVE METABOLIC 50476 ALK PHOS 54 U/L 2010 Unknown COMPREHENSIVE METABOLIC 79358 SODIUM 140 MMOL/L 03/14 Unknown COMPREHENSIVE METABOLIC 86378 CREATININE 1.02 MG/DL 12/2010 Unknown COMPREHENSIVE METABOLIC 66500 CALCIUM 9.4 MG/DL 2010 Unknown COMPREHENSIVE METABOLIC 66431 POTASSIUM 4.6 MMOL/L 03/14 Unknown COMPREHENSIVE METABOLIC 82736 PROT TOT 7.0 GM/DL 2010 Unknown COMPREHENSIVE METABOLIC 12194 Glucose 107 MG/DL 2010 Unknown COMPREHENSIVE METABOLIC 48444 BICARB 28 MMOL/L 2010 Unknown COMPREHENSIVE METABOLIC 24638 ANION GAP 5 MEQ/L 2010 Unknown LIPID GROUP 16029 HDL TEST 39 MG/DL 03/14/2011 Unknown LIPID GROUP 76243 TRIG 157 MG/DL 03/14/2011 Unknown LIPID GROUP 95806 TEST LDL 66 MG/DL 03/14/2011 Unknown LIPID GROUP 98272 CHOL 136 MG/DL 03/14/2011 Unknown LIPID GROUP 63306 RCHOL/HDL 3.49 RATIO 03/14/2011 Unknow n GFR CALC 1104661 GFR AA >60 ML/MIN 11/11/2010 Unknown GFR CALC 2798251 GFR NON-AA >60 ML/MIN 11/11/2010 Unknown LIPID GROUP 19801 HDL TEST 39 MG/DL 11/11/2010 Unknown LIPID GROUP 38690 TRIG 212 MG/DL 11/11/2010 Unknown LIPID GROUP 90320 TEST LDL 67 MG/DL 11/11/2010 Unknown LIPID GROUP 90412 CHOL 148 MG/DL 11/11/2010 Unknown LIPID GROUP 64584 RCHOL/HDL 3.79 RATIO 11/11/2010 Unknow n COMPREHENSIVE METABOLIC 31841 AST 17 U/L 2010 Unknown COMPREHENSIVE METABOLIC 50552 ALT 21 IU/L 2010 Unknown COMPREHENSIVE METABOLIC 24450 BUN 16 MG/DL 2010 Unknown COMPREHENSIVE METABOLIC 14810 ALBUMIN 4.6 GM/DL 2010 Unknown COMPREHENSIVE METABOLIC 27557 CHLORIDE 106 MMOL/L 11/11 Unknown COMPREHENSIVE METABOLIC 57890 BILI TOT 0.5 MG/DL 2010 Unknown COMPREHENSIVE METABOLIC 90752 ALK PHOS 61 U/L 2010 Unknown COMPREHENSIVE METABOLIC 26465 SODIUM 139 MMOL/L 11/11 Unknown COMPREHENSIVE METABOLIC 82339 CREATININE 1.00 MG/DL 11/2010 Unknown COMPREHENSIVE METABOLIC 07370 CALCIUM 9.5 MG/DL 2010 Unknown COMPREHENSIVE METABOLIC 13331 POTASSIUM 4.5 MMOL/L 11/11 Unknown COMPREHENSIVE METABOLIC 42994 PROT TOT 6.9 GM/DL 2010 Unknown COMPREHENSIVE METABOLIC 81684 Glucose 111 MG/DL 2010 Unknown COMPREHENSIVE METABOLIC 30428 BICARB 26 MMOL/L 2010 Unknown COMPREHENSIVE METABOLIC 31493 ANION GAP 7 MEQ/L 2010 Unknown HEMOGLOBIN A1C (GLYCOSYLATED) 64536 A1C [facility] 76994-4 5.6 % 07/24/2010 Unknown GFR CALC 7856732 GFR AA >60 ML/MIN 07/23/2010 Unknown GFR CALC 3877589 GFR NON-AA >60 ML/MIN 07/23/2010 Unknown COMPREHENSIVE METABOLIC 65071 AST 19 U/L 2010 Unknown COMPREHENSIVE METABOLIC 03177 ALT 33 IU/L 2010 Unknown COMPREHENSIVE METABOLIC 19544 BUN 14 MG/DL 2010 Unknown COMPREHENSIVE METABOLIC 32350 ALBUMIN 4.7 GM/DL 2010 Unknown COMPREHENSIVE METABOLIC 90593 CHLORIDE 107 MMOL/L 07/23 Unknown COMPREHENSIVE METABOLIC 37048 BILI TOT 0.4 MG/DL 2010 Unknown COMPREHENSIVE METABOLIC 82867 ALK PHOS 80 U/L 2010 Unknown COMPREHENSIVE METABOLIC 33550 SODIUM 141 MMOL/L 07/23 Unknown COMPREHENSIVE METABOLIC 80754 CREATININE 0.97 MG/DL 07/05 Unknown COMPREHENSIVE METABOLIC 99294 CALCIUM 9.5 MG/DL 2010 Unknown COMPREHENSIVE METABOLIC 98479 POTASSIUM 4.1 MMOL/L 07/23 Unknown COMPREHENSIVE METABOLIC 89667 PROT TOT 6.8 GM/DL 2010 Unknown COMPREHENSIVE METABOLIC 44443 Glucose 120 MG/DL 2010 Unknown COMPREHENSIVE METABOLIC 09658 BICARB 26 MMOL/L 2010 Unknown COMPREHENSIVE METABOLIC 96589 ANION GAP 8 MEQ/L 2010 Unknown LIPID GROUP 17041 HDL TEST 41 MG/DL 07/23/2010 Unknown LIPID GROUP 16170 TRIG 175 MG/DL 07/23/2010 Unknown LIPID GROUP 38142 TEST LDL 72 MG/DL 07/23/2010 Unknown LIPID GROUP 88046 CHOL 148 MG/DL 07/23/2010 Unknown LIPID GROUP 66250 RCHOL/HDL 3.61 RATIO 07/23/2010 Unknow n PSA FREE AND TOTAL 04587|03221 % FREE PSA FOOTNOTE % 011 Unknown PSA FREE AND TOTAL 58740|33648 XPSA TOTAL 0.83 NG/ML 011 Unknown PSA FREE AND TOTAL 51152|17927 XPSA FREE 0.13 NG/ML 04/26/19 11 Unknown VITAMIN D TOTAL (25 HYDROXY) 94270 VIT D TOTL 26 NG/ML 04/22/2010 Unknown TESTOSTERONE TOTAL 66998 TESTOS TO 387 NG/DL 04/19/2010 Unknown GFR CALC 4179675 GFR AA >60 ML/MIN 04/19/2010 Unknown GFR CALC 6505338 GFR NON-AA >60 ML/MIN 04/19/2010 Unknown COMPLETE BLOOD COUNT 63646 WBC 7.0 10e9/L 04/19/19 11 Unknown COMPLETE BLOOD COUNT 73767 RBC 5.07 10e12/L 2010 Unknown COMPLETE BLOOD COUNT 38713 HGB 15.6 g/dL 1 Unknown COMPLETE BLOOD COUNT 55577 HCT DET 46.2 % 1 Unknown COMPLETE BLOOD COUNT 40665 MCV 91.1 fL 1 Unknown COMPLETE BLOOD COUNT 21656 MCH 30.8 pg 1 Unknown COMPLETE BLOOD COUNT 96342 MCHC 33.8 g/dL 1 Unknown COMPLETE BLOOD COUNT 48764 PLT 205 10e9/L 04/19/19 11 Unknown COMPLETE BLOOD COUNT 83127 MPV 11.1 fL 1 Unknown COMPLETE BLOOD COUNT 05334 SAMIR % 62.4 % 1 Unknown COMPLETE BLOOD COUNT 68405 LY % 28.5 % 1 Unknown COMPLETE BLOOD COUNT 62754 MON % 6.9 % 1 Unknown COMPLETE BLOOD COUNT 71624 EOS % 2.1 % 1 Unknown COMPLETE BLOOD COUNT 23705 BASO % 0.1 % 1 Unknown COMPLETE BLOOD COUNT 80415 RDW 13.4 % 1 Unknown COMPLETE BLOOD COUNT 07003 ABS SAMIR 4.37 10e9/L 011 Unknown COMPLETE BLOOD COUNT 69213 ABS LYMPH 2.00 10e9/L 011 Unknown COMPLETE BLOOD COUNT 84844 ABS MONO 0.48 10e9/L 011 Unknown COMPLETE BLOOD COUNT 98612 ABS EOS 0.15 10e9/L 011 Unknown COMPLETE BLOOD COUNT 09591 ABS BASO 0.01 10e9/L 011 Unknown COMPLETE BLOOD COUNT 40083 RDW-SD 43.8 fL 1 Unknown LIPID GROUP 65384 HDL TEST 39 MG/DL 04/19/2010 Unknown LIPID GROUP 37148 TRIG 244 MG/DL 04/19/2010 Unknown LIPID GROUP 51455 TEST LDL 168 MG/DL 04/19/2010 Unknown LIPID GROUP 95239 CHOL 256 MG/DL 04/19/2010 Unknown LIPID GROUP 28060 RCHOL/HDL 6.56 RATIO 04/19/2010 Unknow n COMPREHENSIVE METABOLIC 96213 AST 28 U/L 2010 Unknown COMPREHENSIVE METABOLIC 50433 ALT 46 IU/L 2010 Unknown COMPREHENSIVE METABOLIC 66361 BUN 14 MG/DL 2010 Unknown COMPREHENSIVE METABOLIC 47223 ALBUMIN 4.9 GM/DL 2010 Unknown COMPREHENSIVE METABOLIC 42977 CHLORIDE 104 MMOL/L 04/19 Unknown COMPREHENSIVE METABOLIC 64168 BILI TOT 0.8 MG/DL 2010 Unknown COMPREHENSIVE METABOLIC 42429 ALK PHOS 71 U/L 2010 Unknown COMPREHENSIVE METABOLIC 25323 SODIUM 139 MMOL/L 04/19 Unknown COMPREHENSIVE METABOLIC 00169 CREATININE 1.06 MG/DL 04/06 Unknown COMPREHENSIVE METABOLIC 98572 CALCIUM 9.9 MG/DL 2010 Unknown COMPREHENSIVE METABOLIC 39995 POTASSIUM 4.3 MMOL/L 04/19 Unknown COMPREHENSIVE METABOLIC 97537 PROT TOT 7.2 GM/DL 2010 Unknown COMPREHENSIVE METABOLIC 72249 Glucose 99 MG/DL 2010 Unknown COMPREHENSIVE METABOLIC 54619 BICARB 28 MMOL/L 2010 Unknown COMPREHENSIVE METABOLIC 53765 ANION GAP 7 MEQ/L 2010 Unknown FREE T4 16731 FREE T4 1.26 NG/DL 04/19/2010 Unknown Procedures Procedure Codes Date FLU VACC PRSV FREE INC ANTIG 65 AND OLDER CPT-4: 98695 01/26/2019 FLU VACC PRSV FREE INC ANTIG 65 AND OLDER CPT-4: 92001 01/26/2019 ADMIN INFLUENZA VIRUS VAC CPT-4: G0008 01/26/2019 ROUTINE VENIPUNCTURE CPT-4: 57787 01/26/2019 COMPREHEN METABOLIC PANEL CPT-4: 18332 01/26/2019 COMPLETE CBC W/AUTO DIFF WBC CPT-4: 31776 01/26/2019 LIPID PANEL CPT-4: 50903 01/26/2019 A1C HPLC CPT-4: 66551 01/26/2019 ROUTINE VENIPUNCTURE CPT-4: 50450 09/30/2018 METABOLIC PANEL TOTAL CA CPT-4: 28533 09/30/2018 URINALYSIS NONAUTO W/O SCOPE CPT-4: 59231 08/19/2018 URINE CULTURE/ COLONY COUNT CPT-4: 81939 08/19/2018 MICROALBUMIN QUANTITATIVE CPT-4: 82238 08/19/2018 ROUTINE VENIPUNCTURE CPT-4: 47530 08/16/2018 ASSAY THYROID STIM HORMONE CPT-4: 33363 08/16/2018 COMPREHEN METABOLIC PANEL CPT-4: 61043 08/16/2018 COMPLETE CBC W/AUTO DIFF WBC CPT-4: 73249 08/16/2018 LIPID PANEL CPT-4: 42201 08/16/2018 A1C HPLC CPT-4: 05636 08/16/2018 LIPID PANEL CPT-4: 40514 05/05/2018 COMPREHEN METABOLIC PANEL CPT-4: 22029 05/05/2018 ROUTINE VENIPUNCTURE CPT-4: 33244 05/05/2018 A1C HPLC CPT-4: 58249 05/05/2018 COMPLETE CBC W/AUTO DIFF WBC CPT-4: 43419 05/05/2018 ASSAY THYROID STIM HORMONE CPT-4: 77496 05/05/2018 MICROALBUMIN QUANTITATIVE CPT-4: 88884 01/19/2018 PRESCRIP TRANSMIT VIA ERX SY CPT-4: G8553 01/19/2018 ROUTINE VENIPUNCTURE CPT-4: 67891 01/13/2018 COMPREHEN METABOLIC PANEL CPT-4: 93022 01/13/2018 A1C HPLC CPT-4: 04472 01/13/2018 LIPID PANEL CPT-4: 90574 01/13/2018 ASSAY OF PSA TOTAL CPT-4: 64144 01/13/2018 ASSAY THYROID STIM HORMONE CPT-4: 49838 01/13/2018 ROUTINE VENIPUNCTURE CPT-4: 23043 10/06/2017 COMPREHEN METABOLIC PANEL CPT-4: 80169 10/06/2017 COMPLETE CBC W/AUTO DIFF WBC CPT-4: 65739 10/06/2017 LIPID PANEL CPT-4: 75186 10/06/2017 A1C HPLC CPT-4: 45118 10/06/2017 VITAMIN B-12 CPT-4: 62438 10/06/2017 DESTRUCT PREMALG LESION (Cryosurgery) CPT-4: 57226 DESTRUCT PREMALG LES 2-14 CPT-4: 07438 04/23/2017 PRESCRIP TRANSMIT VIA ERX SY CPT-4: G8553 03/11/2017 ROUTINE VENIPUNCTURE CPT-4: 18751 03/05/2017 ASSAY OF FREE THYROXINE CPT-4: 15679 03/05/2017 ASSAY THYROID STIM HORMONE CPT-4: 20211 03/05/2017 COMPREHEN METABOLIC PANEL CPT-4: 62041 03/05/2017 COMPLETE CBC W/AUTO DIFF WBC CPT-4: 73359 03/05/2017 LIPID PANEL CPT-4: 20734 03/05/2017 A1C HPLC CPT-4: 45614 03/05/2017 ROUTINE VENIPUNCTURE CPT-4: 23240 06/16/2016 ASSAY OF FREE THYROXINE CPT-4: 29448 06/16/2016 ASSAY THYROID STIM HORMONE CPT-4: 82627 06/16/2016 COMPREHEN METABOLIC PANEL CPT-4: 19570 06/16/2016 COMPLETE CBC W/AUTO DIFF WBC CPT-4: 39070 06/16/2016 LIPID PANEL CPT-4: 68659 06/16/2016 A1C HPLC CPT-4: 96469 06/16/2016 ROUTINE VENIPUNCTURE CPT-4: 03230 03/06/2016 ASSAY OF FREE THYROXINE CPT-4: 05858 03/06/2016 ASSAY THYROID STIM HORMONE CPT-4: 16378 03/06/2016 COMPREHEN METABOLIC PANEL CPT-4: 31400 03/06/2016 COMPLETE CBC W/AUTO DIFF WBC CPT-4: 26172 03/06/2016 LIPID PANEL CPT-4: 70012 03/06/2016 A1C HPLC CPT-4: 20070 03/06/2016 PRESCRIP TRANSMIT VIA ERX SY CPT-4: G8553 09/10/2015 PNEUMOCOCCAL VACC 23 ROSANNE IM CPT-4: 30524 09/06/2015 ADMIN PNEUMOCOCCAL VACCINE CPT-4: G0009 09/06/2015 ROUTINE VENIPUNCTURE CPT-4: 30913 08/31/2015 COMPREHEN METABOLIC PANEL CPT-4: 01810 08/31/2015 COMPLETE CBC W/AUTO DIFF WBC CPT-4: 99553 08/31/2015 LIPID PANEL CPT-4: 25422 08/31/2015 ASSAY OF PSA TOTAL CPT-4: 99377 08/31/2015 A1C HPLC CPT-4: 96551 08/31/2015 ASSAY OF FREE THYROXINE CPT-4: 25791 08/31/2015 ASSAY THYROID STIM HORMONE CPT-4: 94761 08/31/2015 PRESCRIP TRANSMIT VIA ERX SY CPT-4: G8553 06/29/2015 FLU VACC PRSV FREE INC ANTIG 65 AND OLDER CPT-4: 58117 01/17/2015 PNEUMOCOCCAL VACC 13 ROSANNE IM CPT-4: 68818 01/17/2015 ADMIN INFLUENZA VIRUS VAC CPT-4: G0008 01/17/2015 ADMIN PNEUMOCOCCAL VACCINE CPT-4: G0009 01/17/2015 DESTRUCT PREMALG LESION (Cryosurgery) CPT-4: 23736 PRESCRIP TRANSMIT VIA ERX SY CPT-4: G8553 01/17/2015 ROUTINE VENIPUNCTURE CPT-4: 79910 01/12/2015 COMPREHEN METABOLIC PANEL CPT-4: 76697 01/12/2015 COMPLETE CBC W/AUTO DIFF WBC CPT-4: 59323 01/12/2015 LIPID PANEL CPT-4: 08688 01/12/2015 A1C HPLC CPT-4: 63355 01/12/2015 DESTRUCT PREMALG LESION (Cryosurgery) CPT-4: 77106 ROUTINE VENIPUNCTURE CPT-4: 23691 08/15/2014 COMPREHEN METABOLIC PANEL CPT-4: 98188 08/15/2014 COMPLETE CBC W/AUTO DIFF WBC CPT-4: 57070 08/15/2014 LIPID PANEL CPT-4: 97728 08/15/2014 A1C HPLC CPT-4: 65698 08/15/2014 ASSAY OF PSA TOTAL CPT-4: 72823 08/15/2014 ASSAY OF FREE THYROXINE CPT-4: 10925 08/15/2014 ASSAY THYROID STIM HORMONE CPT-4: 96643 08/15/2014 ROUTINE VENIPUNCTURE CPT-4: 98839 12/14/2013 ASSAY OF FREE THYROXINE CPT-4: 24281 12/14/2013 ASSAY THYROID STIM HORMONE CPT-4: 84182 12/14/2013 COMPREHEN METABOLIC PANEL CPT-4: 23485 12/14/2013 COMPLETE CBC W/AUTO DIFF WBC CPT-4: 79116 12/14/2013 LIPID PANEL CPT-4: 47965 12/14/2013 A1C HPLC CPT-4: 97920 12/14/2013 ROUTINE VENIPUNCTURE CPT-4: 24779 06/08/2013 ASSAY OF FREE THYROXINE CPT-4: 13543 06/08/2013 ASSAY THYROID STIM HORMONE CPT-4: 56937 06/08/2013 COMPREHEN METABOLIC PANEL CPT-4: 26031 06/08/2013 COMPLETE CBC W/AUTO DIFF WBC CPT-4: 21152 06/08/2013 LIPID PANEL CPT-4: 05046 06/08/2013 A1C HPLC CPT-4: 71595 06/08/2013 ROUTINE VENIPUNCTURE CPT-4: 57756 11/11/2012 COMPREHEN METABOLIC PANEL CPT-4: 27535 11/11/2012 COMPLETE CBC W/AUTO DIFF WBC CPT-4: 69883 11/11/2012 LIPID PANEL CPT-4: 74668 11/11/2012 A1C GLYCOSYLATED HEMOGLOBIN TEST CPT-4: 64371 013 ASSAY THYROID STIM HORMONE CPT-4: 41335 11/11/2012 ROUTINE VENIPUNCTURE CPT-4: 61431 05/04/2012 ASSAY OF FREE THYROXINE CPT-4: 11272 05/04/2012 ASSAY THYROID STIM HORMONE CPT-4: 57406 05/04/2012 COMPREHEN METABOLIC PANEL CPT-4: 05223 05/04/2012 COMPLETE CBC W/AUTO DIFF WBC CPT-4: 64311 05/04/2012 LIPID PANEL CPT-4: 74962 05/04/2012 DESTRUCT PREMALG LESION (Cryosurgery) CPT-4: 97302 DESTRUCT PREMALG LES 2-14 CPT-4: 00670 03/02/2012 ROUTINE VENIPUNCTURE CPT-4: 65647 10/29/2011 COMPREHEN METABOLIC PANEL CPT-4: 85797 10/29/2011 LIPID PANEL CPT-4: 67113 10/29/2011 A1C GLYCOSYLATED HEMOGLOBIN TEST CPT-4: 67602 012 ROUTINE VENIPUNCTURE CPT-4: 50909 07/29/2011 COMPREHEN METABOLIC PANEL CPT-4: 42936 07/29/2011 LIPID PANEL CPT-4: 21051 07/29/2011 A1C GLYCOSYLATED HEMOGLOBIN TEST CPT-4: 49828 012 ROUTINE VENIPUNCTURE CPT-4: 66888 03/14/2011 COMPREHEN METABOLIC PANEL CPT-4: 53852 03/14/2011 LIPID PANEL CPT-4: 53220 03/14/2011 A1C GLYCOSYLATED HEMOGLOBIN TEST CPT-4: 11804 011 ROUTINE VENIPUNCTURE CPT-4: 29426 11/11/2010 COMPREHEN METABOLIC PANEL CPT-4: 21719 11/11/2010 LIPID PANEL CPT-4: 08022 11/11/2010 URINE CULTURE/ COLONY COUNT CPT-4: 20813 11/11/2010 URINALYSIS NONAUTO W/O SCOPE CPT-4: 62934 10/29/2010 URINE CULTURE/ COLONY COUNT CPT-4: 62090 10/29/2010 LIPID PANEL CPT-4: 89849 07/23/2010 COMPREHEN METABOLIC PANEL CPT-4: 33823 07/23/2010 ROUTINE VENIPUNCTURE CPT-4: 75593 07/23/2010 ROUTINE VENIPUNCTURE CPT-4: 81047 04/26/2010 PSA FREE AND TOTAL CPT-4: 29315|19968 04/26/2010 OCCULT BLOOD FECES CPT-4: 28340 04/24/2010 ROUTINE VENIPUNCTURE CPT-4: 57910 04/19/2010 COMPLETE CBC W/AUTO DIFF WBC CPT-4: 35011 04/19/2010 COMPREHEN METABOLIC PANEL CPT-4: 99202 04/19/2010 LIPID PANEL CPT-4: 91305 04/19/2010 TESTOSTERONE TOTAL - MALE CPT-4: 99595 04/19/2010 ASSAY THYROID STIM HORMONE CPT-4: 98641 04/19/2010 ASSAY OF FREE THYROXINE CPT-4: 82497 04/19/2010 VITAMIN D TOTAL (25 HYDROXY) CPT-4: 07066 04/19/2010 Vital Signs Date Vital 01/31/2019 Blood [...] 1: 112/70 Code: 8480-6 BMI: 28.9 Code: 95507-7 Heart Rate 1: 60 bpm Height: 6'3" Respiratory Rate: 20 bpm SpO2: 95% Tempera ture: 36.6 (C) / 97.9 (F) Weight: 231 lbs 01/19/2018 Blood Pressure 1: 150/82 Code: 8480-6 Heart Rate 1: 63 bpm Respiratory Rate: 18 bpm SpO2: 98% Temperature: 36.0 (C) / 96.8 (F) We ight: 225 lbs 10/15/2017 Blood Pressure 1: 126/82 Code: 8480-6 BMI: 27.9 Code: 09958-3 Heart Rate 1: 64 bpm Height: 6'3" Respiratory Rate: 20 bpm SpO2: 96% Tempera ture: 36.7 (C) / 98.1 (F) Weight: 223 lbs 04/23/2017 Blood Pressure 1: 136/74 Code: 8480-6 BMI: 28.7 Code: 28369-0 Heart Rate 1: 76 bpm Height: 6'3" Respiratory Rate: 20 bpm Temperature: 37 .0 (C) / 98.6 (F) Weight: 230 lbs 03/11/2017 Blood Pressure 1: 136/66 Code: 8480-6 BMI: 28.6 Code: 38451-0 Heart Rate 1: 60 bpm Height: 6'3" Respiratory Rate: 20 bpm Temperature: 36 .7 (C) / 98.1 (F) Weight: 229 lbs 07/09/2016 Blood Pressure 1: 132/80 Code: 8480-6 BMI: 27.7 Code: 67909-3 Heart Rate 1: 64 bpm Height: 6'3" Respiratory Rate: 20 bpm SpO2: 96% Tempera ture: 36.9 (C) / 98.4 (F) Weight: 222 lbs 03/10/2016 Blood Pressure 1: 134/78 Code: 8480-6 BMI: 28.5 Code: 01433-9 Heart Rate 1: 60 bpm Height: 6'3" Respiratory Rate: 20 bpm SpO2: 96% Tempera ture: 36.7 (C) / 98.1 (F) Weight: 228 lbs 09/12/2015 Blood Pressure 1: 136/78 Code: 8480-6 Heart Rate 1: 84 bpm Height: Respiratory Rate: 24 bpm SpO2: 97% Temperature: 36.4 (C) / 97.6 (F) We ight: 09/10/2015 Blood Pressure 1: 124/76 Code: 8480-6 BMI: 28.5 Code: 84668-6 Heart Rate 1: 76 bpm Height: 6'3" Respiratory Rate: 24 bpm SpO2: 97% Tempera ture: 36.4 (C) / 97.6 (F) Weight: 228 lbs 09/06/2015 Blood Pressure 1: 12482 Code: 8480-6 BMI: 29.0 Code: 73892-8 Heart Rate 1: 66 bpm Height: 6'3" Respiratory Rate: 20 bpm SpO2: 97% Tempera ture: 36.4 (C) / 97.6 (F) Weight: 232 lbs 06/29/2015 Blood Pressure 1: 12482 Code: 8480-6 Heart Rate 1: 88 bpm Height: Respiratory Rate: 20 bpm Temperature: 36.7 (C) / 98.1 (F) Weight: 01/17/2015 Blood Pressure 1: 12478 Code: 8480-6 BMI: 27.7 Code: 32312-6 Heart Rate 1: 76 bpm Height: 6'3" Respiratory Rate: 20 bpm Temperature: 36 .6 (C) / 97.8 (F) Weight: 222 lbs 09/19/2014 Blood Pressure 1: 128/80 Code: 8480-6 BMI: 27.4 Code: 44278-3 Heart Rate 1: 64 bpm Height: 6'3" Respiratory Rate: 20 bpm Temperature: 36 .4 (C) / 97.6 (F) Weight: 219 lbs 10/17/2013 Blood Pressure 1: 116/70 Code: 8480-6 Heart Rate 1: 88 bpm Respiratory Rate: 20 bpm Temperature: 36.9 (C) / 98.4 (F) Weight: 220 lbs 09/23/2013 Blood Pressure 1: 124/80 Code: 8480-6 BMI: 28.7 Code: 50135-2 Heart Rate 1: 76 bpm Height: 6'3" Respiratory Rate: 20 bpm Temperature: 36 .8 (C) / 98.2 (F) Weight: 230 lbs 07/22/2013 Blood Pressure 1: 128/70 Code: 8480-6 He art Rate 1: 78 bpm 06/20/2013 Blood Pressure 1: 144/86 Code: 8480-6 BMI: 28.7 Code: 99480-1 Heart Rate 1: 92 bpm Height: 6'3" Respiratory Rate: 20 bpm Temperature: 36 .4 (C) / 97.6 (F) Weight: 230 lbs 11/25/2012 Blood Pressure 1: 128/80 Code: 8480-6 BMI: 27.5 Code: 01393-8 Heart Rate 1: 92 bpm Height: 6'3" Respiratory Rate: 20 bpm Temperature: 36 .8 (C) / 98.3 (F) Weight: 220 lbs 08/27/2012 Blood Pressure 1: 142/80 Code: 8480-6 BMI: 27.7 Code: 08226-9 Heart Rate 1: 76 bpm Height: 6'3" Respiratory Rate: 20 bpm Temperature: 36 .8 (C) / 98.3 (F) Weight: 222 lbs 05/11/2012 Blood Pressure 1: 136/80 Code: 8480-6 BMI: 27.7 Code: 82264-8 Heart Rate 1: 76 bpm Height: 6'3" Respiratory Rate: 20 bpm Temperature: 36 .8 (C) / 98.3 (F) Weight: 222 lbs 03/02/2012 Blood Pressure 1: 136/70 Code: 8480-6 BMI: 28.0 Code: 80953-9 Heart Rate 1: 80 bpm Height: 6'3" Respiratory Rate: 20 bpm Temperature: 36 .6 (C) / 97.8 (F) Weight: 224 lbs 12/11/2011 Blood Pressure 1: 142/80 Code: 8480-6 BMI: 27.1 Code: 63835-8 Heart Rate 1: 84 bpm Height: 6'3" Respiratory Rate: 20 bpm Temperature: 36 .9 (C) / 98.4 (F) Weight: 217 lbs 08/14/2011 Blood Pressure 1: 130/82 Code: 8480-6 He art Rate 1: 64 bpm 07/29/2011 Blood Pressure 1: 132/64 Code: 8480-6 BMI: 26.7 Code: 54532-2 Heart Rate 1: 72 bpm Height: 6'3" [...] 1: 142/88 Code: 8480-6 BMI: 26.4 Code: 37204-9 Heart Rate 1: 80 bpm Height: 6'3" [...] For Visit Effective Dates Notes follow up 01/31/2019 lab draw 01/26/2019 Flu [...] labs Encounters Encounter Performer Location Codes Date ([id number]) OFFICE/OUTPATIENT VISIT EST Diagnosis: Essential (primary) hypertension[ICD10: I10] Diagnosis: Type 2 diabetes mellitus without complications[ICD10: E11.9] Diagnosis: Mixed hyperlipidemia[ICD10: E78.2] Najma CLINTON CPT-4: 13690 01/31/2019 ([id number]) NURSE/OUTPATIENT VISIT EST Diagnosis: Mixed hyperlipidemia[ICD10: E78.2] Diagnosis: Type 2 diabetes mellitus without complications[ICD10: E11.9] Diagnosis: Essential (primary) hypertension[ICD10: I10] Diagnosis: Chronic kidney disease, unspecified[ICD10: N18.9] Najma OG DO [facility] CPT-4: 81401 01/26/2019 ([id number]) NURSE/OUTPATIENT VISIT EST Diagnosis: Chronic kidney disease, unspecified[ICD10: N18.9] Diagnosis: Essential (primary) hypertension[ICD10: I10] Najma OG [facility] CPT-4: 36495 09/30/2018 ([id number]) OFFICE/OUTPATIENT VISIT EST Diagnosis: Essential (primary) hypertension[ICD10: I10] Diagnosis: Type 2 diabetes mellitus without complications[ICD10: E11.9] Diagnosis: Mixed hyperlipidemia[ICD10: E78.2] Diagnosis: Unspecified kidney failure[ICD10: N19] Najma OG [employer] CPT-4: 02962 08/19/2018 ([id number]) NURSE/OUTPATIENT VISIT EST Diagnosis: Essential (primary) hypertension[ICD10: I10] Diagnosis: Type 1 diabetes mellitus with unspecified complications[ICD10: E10.8] Diagnosis: Mixed hyperlipidemia[ICD10: E78.2] Najma GODINEZ [employer] CPT-4: 22981 08/16/2018 ([id number]) OFFICE/OUTPATIENT VISIT EST Diagnosis: Essential (primary) hypertension[ICD10: I10] Diagnosis: Type 2 diabetes mellitus without complications[ICD10: E11.9] Diagnosis: Mixed hyperlipidemia[ICD10: E78.2] Najma GODINEZ [employer] CPT-4: 41742 05/10/2018 ([id number]) NURSE/OUTPATIENT VISIT EST Diagnosis: Essential (primary) hypertension[ICD10: I10] Diagnosis: Mixed hyperlipidemia[ICD10: E78.2] Diagnosis: Type 1 diabetes mellitus with unspecified complications[ICD10: E10.8] Najma SAMSONAccessPayBIJAN [employer] CPT-4: 92281 05/05/2018 ([id number]) OFFICE/OUTPATIENT VISIT EST Diagnosis: Type 2 diabetes mellitus without complications[ICD10: E11.9] Diagnosis: Mixed hyperlipidemia[ICD10: E78.2] Diagnosis: Nicotine dependence, unspecified, uncomplicated[ICD10: F17.200] Diagnosis: Essential (primary) hypertension[ICD10: I10] Najma OG [employer] CPT-4: 44262 01/19/2018 ([id number]) NURSE/OUTPATIENT VISIT EST Diagnosis: Type 1 diabetes mellitus with unspecified complications[ICD10: E10.8] Diagnosis: Essential (primary) hypertension[ICD10: I10] Diagnosis: Male erectile disorder[ICD10: F52.21] Diagnosis: Encounter for screening for malignant neoplasm of prostate[ICD10: Z12.5] Najma OG [employer] CPT-4: 35086 01/13/2018 ([id number]) OFFICE/OUTPATIENT VISIT EST Diagnosis: Type 2 diabetes mellitus without complications[ICD10: E11.9] Diagnosis: Essential (primary) hypertension[ICD10: I10] Diagnosis: Mixed hyperlipidemia[ICD10: E78.2] Najma GODINEZ [employer] CPT-4: 18473 10/15/2017 ([id number]) NURSE/OUTPATIENT VISIT EST Diagnosis: Type 2 diabetes mellitus without complications[ICD10: E11.9] Diagnosis: Mixed hyperlipidemia[ICD10: E78.2] Diagnosis: Essential (primary) hypertension[ICD10: I10] Diagnosis: Glossitis[ICD10: K14.0] Najma THAKKAR [employer] CPT-4: 98463 10/06/2017 ([id number]) OFFICE/OUTPATIENT VISIT EST Diagnosis: Type 2 diabetes mellitus without complications[ICD10: E11.9] Diagnosis: Mixed hyperlipidemia[ICD10: E78.2] Diagnosis: Essential (primary) hypertension[ICD10: I10] Najma OG [employer] CPT-4: 34323 03/11/2017 ([id number]) OFFICE/OUTPATIENT VISIT EST Diagnosis: Type 1 diabetes mellitus with unspecified complications[ICD10: E10.8] Diagnosis: Mixed hyperlipidemia[ICD10: E78.2] Diagnosis: Essential (primary) hypertension[ICD10: I10] Diagnosis: Other fatigue[ICD10: R53.83] Najma GO [facility] CPT-4: 66254 03/05/2017 ([id number]) OFFICE/OUTPATIENT VISIT EST Diagnosis: Type 2 diabetes mellitus without complications[ICD10: E11.9] Diagnosis: Mixed hyperlipidemia[ICD10: E78.2] Diagnosis: Essential (primary) hypertension[ICD10: I10] Diagnosis: Nicotine dependence, unspecified, uncomplicated[ICD10: F17.200] Najma OG DO [facility] CPT-4: 36533 07/09/2016 ([id number]) OFFICE/OUTPATIENT VISIT EST Diagnosis: Type 1 diabetes mellitus with unspecified complications[ICD10: E10.8] Diagnosis: Mixed hyperlipidemia[ICD10: E78.2] Diagnosis: Essential (primary) hypertension[ICD10: I10] Najma OG DO [facility] CPT-4: 03823 06/16/2016 ([id number]) OFFICE/OUTPATIENT VISIT EST Diagnosis: Type 2 diabetes mellitus without complications[ICD10: E11.9] Diagnosis: Mixed hyperlipidemia[ICD10: E78.2] Diagnosis: Essential (primary) hypertension[ICD10: I10] Najma OG [facility] CPT-4: 03189 03/10/2016 ([id number]) OFFICE/OUTPATIENT VISIT EST Diagnosis: Type 1 diabetes mellitus with unspecified complications[ICD10: E10.8] Diagnosis: Mixed hyperlipidemia[ICD10: E78.2] Diagnosis: Essential (primary) hypertension[ICD10: I10] Najma OG [facility] CPT-4: 08227 03/06/2016 ([id number]) OFFICE/OUTPATIENT VISIT EST Diagnosis: Bitten or stung by nonvenomous insect and other nonvenomous arthropods, subsequent encounter[ICD10: W57.XXXD] Diagnosis: Insect bite (nonvenomous), right thigh, subsequent encounter[ICD10: S70.361D] Barbara Brower NAJMA OG [facility] AS [facility] CPT-4: 19560 11/2015 ([id number]) OFFICE/OUTPATIENT VISIT EST Diagnosis: Bitten or stung by nonvenomous insect and other nonvenomous arthropods, initial encounter[ICD10: W57.XXXA] Diagnosis: Insect bite (nonvenomous), right thigh, initial encounter[ICD10: S70.361A] Barbara Brower NAJMA [employer] CPT-4: 76511 09/2015 ([id number]) OFFICE/OUTPATIENT VISIT EST Diagnosis: Mixed hyperlipidemia[ICD10: E78.2] Diagnosis: Essential (primary) hypertension[ICD10: I10] Diagnosis: Type 2 diabetes mellitus without complications[ICD10: E11.9] Diagnosis: Encounter for immunization[ICD10: Z23] Diagnosis: Encounter for screening for malignant neoplasm of colon[ICD10: Z12.11] Diagnosis: Abnormal weight gain[ICD10: R63.5] Barbara Brower ANUM GODINEZ [employer] CPT-4: 18789 09/06/2015 ([id number]) OFFICE/OUTPATIENT VISIT EST Diagnosis: Type 2 diabetes mellitus without complications[ICD10: E11.9] Diagnosis: Mixed hyperlipidemia[ICD10: E78.2] Diagnosis: Essential (primary) hypertension[ICD10: I10] Diagnosis: Encounter for screening for malignant neoplasm of prostate[ICD10: Z12.5] Diagnosis: Other fatigue[ICD10: R53.83] Najma MCARTHUR [employer] CPT-4: 98948 08/31/2015 OFFICE/OUTPATIENT VISIT EST Diagnosis: Diarrhea, unspecified[ICD10: R19.7] Henrietta MCCOY [facility] CPT-4: 31138 06/29/2015 OFFICE/OUTPATIENT VISIT EST Diagnosis: PNEUMOCOCCAL VACCINE[ICD10: Z23] Diagnosis: FLU VACCINE[ICD10: Z23] Diagnosis: Essential (primary) hypertension[ICD10: I10] Diagnosis: Mixed hyperlipidemia[ICD10: E78.2] Diagnosis: Type 1 diabetes mellitus with unspecified complications[ICD10: E10.8] Diagnosis: Actinic keratosis[ICD10: L57.0] Najma MCARTHUR [employer] CPT-4: 89551 01/17/2015 ([id number]) OFFICE/OUTPATIENT VISIT EST Diagnosis: Type 2 diabetes mellitus without complications[ICD10: E11.9] Diagnosis: Impaired fasting glucose[ICD10: R73.01] Diagnosis: Mixed hyperlipidemia[ICD10: E78.2] Diagnosis: Essential (primary) hypertension[ICD10: I10] Najma OG DO [facility] CPT-4: 10181 01/12/2015 ([id number]) OFFICE/OUTPATIENT VISIT EST Diagnosis: - I - HYPERLIPIDEMIA NEC/NOS[ICD9: 272.4] Diagnosis: HYPERTENSION[ICD9: 401.9] Diagnosis: DM W/O COMPLICATION TYPE II[ICD9: 250.00] Diagnosis: ACTINIC KERATOSIS[ICD9: 702.0] Najma OG [facility] CPT-4: 23415 09/19/2014 ([id number]) OFFICE/OUTPATIENT VISIT EST Diagnosis: HYPERLIPIDEMIA NEC/NOS[ICD9: 272.4] Diagnosis: HYPERTENSION[ICD9: 401.9] Diagnosis: IMPAIRED FASTING GLUCOSE[ICD9: 790.21] Diagnosis: MALAISE AND FATIGUE[ICD9: 780.79] Najma LONG [facility] CPT-4: 31461 08/15/2014 ([id number]) OFFICE/OUTPATIENT VISIT EST Diagnosis: HYPERLIPIDEMIA NEC/NOS[ICD9: 272.4] Diagnosis: HYPERTENSION[ICD9: 401.9] Diagnosis: IMPAIRED FASTING GLUCOSE[ICD9: 790.21] Najma LONG [facility] CPT-4: 42068 12/14/2013 ([id number]) OFFICE/OUTPATIENT VISIT EST Diagnosis: Post herpetic neuralgia[ICD9: 053.19] Najma OG [facility] CPT-4: 21761 10/17/2013 OFFICE/OUTPATIENT VISIT EST Diagnosis: Shingles[ICD9: 053.9] Diagnosis: Post herpetic neuralgia[ICD9: 053.19] Jeanie Briceño CLAUDE SOLOMONNE Matilda OG [facility] AS [facility] CPT-4: 46337 09/23/2013 ([id number]) OFFICE/OUTPATIENT VISIT EST Diagnosis: HYPERTENSION[ICD9: 401.9] Diagnosis: HYPERLIPIDEMIA NEC/NOS[ICD9: 272.4] Diagnosis: IMPAIRED FASTING GLUCOSE[ICD9: 790.21] Najma OG [facility] AS [facility] CPT-4: 85716 06/20/2013 ([id number]) OFFICE/OUTPATIENT VISIT EST Diagnosis: HYPERLIPIDEMIA NEC/NOS[ICD9: 272.4] Diagnosis: MALAISE AND FATIGUE[ICD9: 780.79] Diagnosis: ROUTINE MEDICAL EXAM[ICD9: V70.0] Diagnosis: HYPERTENSION[ICD9: 401.9] Diagnosis: IMPAIRED FASTING GLUCOSE[ICD9: 790.21] Najma OG [facility] AS [facility] CPT-4: 76109 06/08/2013 ([id number]) OFFICE/OUTPATIENT VISIT EST Diagnosis: HYPERLIPIDEMIA NEC/NOS[ICD9: 272.4] Diagnosis: HYPERTENSION[ICD9: 401.9] Diagnosis: IMPAIRED FASTING GLUCOSE[ICD9: 790.21] Diagnosis: DIARRHEA[ICD9: 787.91] Najma MANUELLINE Matilda Stallings [facility] CPT-4: 39946 11/25/2012 ([id number]) OFFICE/OUTPATIENT VISIT EST Diagnosis: HYPERLIPIDEMIA NEC/NOS[ICD9: 272.4] Diagnosis: HYPERTENSION[ICD9: 401.9] Diagnosis: IMPAIRED FASTING GLUCOSE[ICD9: 790.21] Diagnosis: MALAISE AND FATIGUE[ICD9: 780.79] Najma MANUELLIN Gregory OG [employer] CPT-4: 47225 11/11/2012 OFFICE/OUTPATIENT VISIT EST Diagnosis: Fungal dermatitis[ICD9: 111.9] Diagnosis: Dry skin dermatitis[ICD9: 692.89] Henrietta Lubin FILI E Matilda LONG [facility] CPT-4: 25477 08/27/2012 ([id number]) OFFICE/OUTPATIENT VISIT EST Diagnosis: HYPERTENSION[ICD9: 401.9] Diagnosis: HYPERLIPIDEMIA NEC/NOS[ICD9: 272.4] Najma Heverpepperbijan KAYLEY MCCOY Matilda LONG [facility] CPT-4: 55309 05/11/2012 ([id number]) OFFICE/OUTPATIENT VISIT EST Diagnosis: HYPERLIPIDEMIA NEC/NOS[ICD9: 272.4] Diagnosis: HYPERTENSION[ICD9: 401.9] Diagnosis: ROUTINE MEDICAL EXAM[ICD9: V70.0] Najma SAMSONNDER [facility] CPT-4: 27923 05/04/2012 ([id number]) OFFICE/OUTPATIENT VISIT EST Diagnosis: HYPERTENSION[ICD9: 401.9] Diagnosis: HYPERLIPIDEMIA NEC/NOS[ICD9: 272.4] Diagnosis: IMPAIRED FASTING GLUCOSE[ICD9: 790.21] Najma OG DO [facility] CPT-4: 55265 12/11/2011 ([id number]) OFFICE/OUTPATIENT VISIT EST Diagnosis: HYPERLIPIDEMIA NEC/NOS[ICD9: 272.4] Diagnosis: HYPERTENSION[ICD9: 401.9] Diagnosis: IMPAIRED FASTING GLUCOSE[ICD9: 790.21] Najma SAMSONNDBIJAN WADE [facility] CPT-4: 97287 10/29/2011 ([id number]) OFFICE/OUTPATIENT VISIT EST Diagnosis: HYPERTENSION[ICD9: 401.9] Najma SAMSON NDER DO [facility] CPT-4: 30789 08/14/2011 ([id number]) OFFICE/OUTPATIENT VISIT EST Diagnosis: HYPERTENSION[ICD9: 401.9] Diagnosis: IMPAIRED FASTING GLUCOSE[ICD9: 790.21] Najma SAMSONNDER [facility] CPT-4: 79093 07/29/2011 ([id number]) OFFICE/OUTPATIENT VISIT EST Diagnosis: HYPERTENSION[ICD9: 401.9] Najma SAMSON NDER DO [facility] CPT-4: 82787 07/23/2011 ([id number]) OFFICE/OUTPATIENT VISIT EST Diagnosis: HYPERTENSION[ICD9: 401.9] Najma SAMSON NDER DO [facility] CPT-4: 74677 06/24/2011 OFFICE/OUTPATIENT VISIT EST Diagnosis: HYPERTENSION[ICD9: 401.9] Najma SAMSON NDER DO [facility] CPT-4: 39142 05/20/2011 OFFICE/OUTPATIENT VISIT EST Diagnosis: HYPERTENSION[ICD9: 401.9] Najma SAMSON NDER DO [facility] CPT-4: 34555 04/15/2011 OFFICE/OUTPATIENT VISIT EST Diagnosis: HYPERLIPIDEMIA NEC/NOS[ICD9: 272.4] Diagnosis: IMPAIRED FASTING GLUCOSE[ICD9: 790.21] Najma OG DO [facility] CPT-4: 10539 03/18/2011 ([id number]) OFFICE/OUTPATIENT VISIT EST Najma OG DO [facility] CPT-4: 81693 07/30/2010 ([id number]) PREV VISIT, EST, AGE 40-64 Najma OG DO [facility] CPT-4: 08183 04/24/2010 Plan of Care Planned Activity Notes [...] : E78.2 01/31/2019 Appointment: Najma Og WPtel: [address] [place] [address] US FOLLOW UP 01/31/2019 Appointment: Najma Og WPtel: [address] [place], [place] [phone] [place] LAB 01/26/2019 Appointment: Najma Og WPtel: [address] [place], [place] [phone] [place] LAB 09/30/2018 Visit Diagnosis Plan: Unspecified [...] : E11.9 08/19/2018 Appointment: Najma Og WPtel: [address] [place], [place] [phone] FOLLOW UP 08/19/2018 Appointment: Najma Og WPtel: [address] [place], [place] [phone] [place] LAB 08/16/2018 Visit Diagnosis Plan: Essential [...] : E78.2 05/10/2018 Appointment: Najma Og WPtel: [address] [place], [place] [phone] FOLLOW UP 05/10/2018 Patient Education: Low Back Pain Exercises: Illustration Completed 05/10/2018 Patient Education: Low Back Pain Exercises Completed 05/10/2018 Appointment: Najma Og WPtel: [address] [place], [place] [phone] [place] LAB 05/05/2018 Visit Diagnosis Plan: Type [...] : E78.2 01/19/2018 Appointment: Najma Og WPtel: [address] [place], [place] [phone] FOLLOW UP 01/19/2018 Patient Education: Patient Medication Summary Completed 01/19/2018 Appointment: Najma Og WPtel: [address] [place], [place] [phone] [place] LAB 01/13/2018 Patient Education: Patient Medication [...] : I10 10/15/2017 Appointment: Najma Og WPtel: [address] [place], [place] [phone] FOLLOW UP 10/15/2017 Patient Education: Patient Medication Summary Completed 10/15/2017 Appointment: Najma Og WPtel: [address] [place], [place] [phone] [place] LAB 10/06/2017 Patient Education: Patient Medication Summary Completed 10/06/2017 Visit Diagnosis Plan: Actinic keratosis Discussion: Cr yotherapy as above ICD-9 : 702.0 ICD-10 : L57.0 04/23/2017 Appointment: Najma Og WPtel: [address] [place], [place] [phone] OFFICE SURGERY 04/23/2017 Patient Education: [...] : E78.2 03/11/2017 Appointment: Najma Og WPtel: [address] [place], [place] [phone] [place] FOLLOW UP 03/11/2017 Patient Education: Patient Medication Summary Completed 03/11/2017 Appointment: Najma Og WPtel: [address] [place], [place] [phone] LAB 03/05/2017 Patient Education: Patient Medication Summary [...] : F17.200 07/09/2016 Appointment: Najma Og WPtel: [address] [place], [place] [phone] 07/08 lm ~sl 07/09 confirmed~sl FOLLOW UP 08/2016 Patient Education: Patient Medication Summary Completed 07/09/2016 Appointment: Najma Og WPtel: [address] [place], [place] [phone] [place] LAB 06/16/2016 Patient Education: Patient Medication Summary Completed 06/16/2016 Visit Plan: Lab discussed Accuchecks maribel ly Lifestyle change for 3mos then check CMP, HbA1C in 3mos Has had flu and pneumonia shot 03/10/2016 Appointment: Najma Og WPtel: [phone] [facility] 03/06 confirmed `sl FOLLOW UP 03/10/2016 Patient Education: Patient Medication Summary Completed 03/10/2016 Appointment: Najma Og WPtel: [address] [place], [place] [phone] LAB 03/06/2016 Patient Education: Patient Medication Summary Completed 03/06/2016 Referral: Donavon Keller WPtel: [address] [place], [place] [phone] [place] Referral Completed 10/22/2015 Visit Plan: Tick bite area looks much be tter Continue current rxs and close monitoring Follow up if any new symptoms or worsening appearance 09/12/2015 Appointment: Barbara Brower [address] [place] [address] 09/10 confirmed~sl FOLLOW UP 09/12/2015 Patient Education: Patient Medication Summary Completed 09/12/2015 Visit Plan: Cover as above 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 topical steroids to calm down the inflammation(suspect most of redness is due to histamine response vs infection) Monitor closely Follow up in 2 days to recheck 09/10/2015 Appointment: Barbara Brower [address] [place] [address] ACUTE ILLNESS 09/10/2015 Patient Education: Patient Medication [...] consider shingles vaccine 09/06/2015 Appointment: Barbara Brower [address] [place], [place] [phone] FOLLOW UP 09/06/2015 Patient Education: Patient Medication Summary Completed 09/06/2015 Care Plan: Referral Order SNOMED-CT : [id number] Pending 09/06/2015 Appointment: Najma Og WPtel: [facility] LAB 08/31/2015 Patient Education: Patient Medication Summary [...] to UC/ER. 06/29/2015 Appointment: Henrietta Lubin WPtel: [address] [place] [address] ACUTE ILLNESS 06/29/2015 Patient Education: Patient Medication Summary Completed 06/29/2015 Visit Plan: Lab discussed Will keep meds the same Discussed diet/exercise at length Cryotherapy as above to AKs of arms Flu and Prevnar 13 given Trial of revatio per patient request for ED--warned of no nitrates Recheck 4mos 01/17/2015 Appointment: Najma Og WPtel: [address] [place] [address] 01/16 confirmed~sl FOLLOW UP 01/17/2015 Patient Education: Patient Medication Summary Completed 01/17/2015 Appointment: Najma Og WPtel: [address] [place] [address] LAB 01/12/2015 Patient Education: Patient Medication Summary Completed 01/12/2015 Visit Plan: Lab discussed Start accuchec ks daily Cryotherapy as above 09/19/2014 Appointment: Najma Og WPtel: [address] [place], [place] [phone] 09/18 confirmed -mf FOLLOW UP 09/19/2014 Patient Education: Patient Medication Summary Completed 09/19/2014 Appointment: Najma Og WPtel: [address] [place], [place] [phone] [place] LAB 08/15/2014 Patient Education: Patient Medication Summary Completed 08/15/2014 Appointment: Najma Og WPtel: [address] [place], [place] [phone] ACUTE ILLNESS 12/14/2013 Patient Education: Patient Medication Summary Completed 12/14/2013 Visit Plan: Patient using tylenol prn pa in Discussed possible shingles shot for booster in 9-12mos 10/17/2013 Appointment: Najma Og WPtel: [address] [place] [address] FOLLOW UP 10/17/2013 Patient Education: Patient Medication Summary Completed 10/17/2013 Appointment: Jeanie Briceño WPtel: [address] [place] [address] ACUTE ILLNESS 09/23/2013 Patient Education: Patient Medication Summary Completed 09/23/2013 Appointment: Najma Og WPtel: [address] [place] [address] BP CHECK 07/22/2013 Patient Education: Patient Medication Summary Completed 07/22/2013 Visit Plan: Lab discussed Discussed swit arun amlodopine to beta slim to see if helps with tremor BP check in 1mo 06/20/2013 Appointment: Najma Og WPtel: [address] [place] [address] 06/17 no answer FOLLOW UP 06/20/2013 Patient Education: Patient Medication Summary Completed 06/20/2013 Appointment: Najma Og WPtel: [address] [place], [place] [phone] LAB 06/08/2013 Patient Education: Patient Medication Summary Completed 06/08/2013 Visit Plan: BRAT diet and yogurt and gat orade Lab discussed Continue current meds Spot checks on BS 11/25/2012 Appointment: Najma Og WPtel: [address] [place] [address] 11/24 FOLLOW UP 11/25/2012 Patient Education: Patient Medication Summary Completed 11/25/2012 Appointment: Najma Og WPtel: [address] [place], [place] [phone] LAB 11/11/2012 Patient Education: Patient Medication Summary Completed 11/11/2012 Appointment: Henrietta Lubin WPtel: [address] [place], [place] [phone] WORK IN 08/27/2012 Patient Education: Patient Medication Summary Completed 08/27/2012 Visit Plan: Pt going to get new home BP moniter Continue crestor and restart fish oil and will check fasting lab in 6mos Lab results discussed 05/11/2012 Appointment: Najma Og WPtel: [address] [place], [place] [phone] 05/10 FOLLOW UP 05/11/2012 Patient Education: Patient Medication Summary Completed 05/11/2012 Appointment: Najma Og WPtel: [address] [place], [place] [phone] [place] LAB 05/04/2012 Patient Education: Patient Medication Summary Completed 05/04/2012 Visit Plan: 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 and forehead 03/02/2012 Appointment: Najma Og WPtel: [address] [place], [place] [phone] 03/01 OFFICE SURGERY 03/02/2012 Patient Education: Patient Medication Summary Completed 03/02/2012 Visit Plan: Labs discussed--recheck lab end of Feb/mar Continue current meds and continue to moniter BS daily and BP 1-2 times a week Plan on cryotherapy this fall so can wear longsleeves after procedure See urology 12/11/2011 Appointment: Najma Og WPtel: [address] [place] [phone] FOLLOW UP 12/11/2011 Patient Education: Patient Medication Summary Completed 12/11/2011 Appointment: Najma Og WPtel: [address] [place] [phone] [place] LAB 10/29/2011 Patient Education: Patient Medication Summary Completed 10/29/2011 Appointment: Najma Og WPtel: [phone] BP CHECK 08/14/2011 Patient Education: Patient Medication Summary Completed 08/14/2011 Appointment: Najma Og WPtel: [address] [place] [address] ACUTE ILLNESS 07/29/2011 Patient Education: Patient Medication Summary Completed 07/29/2011 Appointment: Najma Og WPtel: [address] [place] [address] BP CHECK 07/23/2011 Patient Education: Patient Medication Summary Completed 07/23/2011 Appointment: Najma Og WPtel: [address] [place] [address] BP CHECK 06/24/2011 Patient Education: Patient Medication Summary Completed 06/24/2011 Appointment: Najma Og WPtel: [address] [place] [address] BP CHECK 05/20/2011 Patient Education: Patient Medication Summary Completed 05/20/2011 Appointment: Najma Og WPtel: [address] [place] [address] BP CHECK 04/29/2011 Patient Education: Patient Medication Summary Completed 04/29/2011 Appointment: Najma Og WPtel: [address] [place] [address] BP CHECK 04/15/2011 Patient Education: Patient Medication Summary Completed 04/15/2011 Visit Plan: Continue current meds Add fi sh oil 1gm daily Glucometer given to use for accuchecks prn 03/18/2011 Appointment: Najma Ogtel: [address] [place] [address] FOLLOW UP 03/18/2011 Patient Education: Patient Medication Summary Completed 03/18/2011 Appointment: Najma Ogtel: [address] [place] [address] LAB 03/14/2011 Patient Education: Patient Medication Summary Completed 03/14/2011 Appointment: Najma Og WPtel: [address] [place], [place] [id number] [place] LAB 11/11/2010 Appointment: Najma Og WPtel: [address] [place], [place] [phone] [place] UA 11/11/2010 Patient Education: Patient Medication Summary Completed 11/11/2010 Appointment: Najma Og WPtel: [address] [place], [place] [id number] [place] LAB 10/29/2010 Patient Education: Patient Medication Summary Completed 10/29/2010 Appointment: Najma Og WPtel: [address] [place], [place] [id number] [place] FOLLOW UP 07/30/2010 Patient Education: Patient Medication Summary Completed 07/30/2010 Appointment: Najma Og WPtel: [address] [place], [place] [phone] [place] LAB 07/23/2010 Patient Education: Patient Medication Summary Completed 07/23/2010 Appointment: Najma Ogtel: [address] [place], [place] [phone] [place] LAB 04/26/2010 Patient Education: Patient Medication Summary Completed 04/26/2010 Visit Plan: Add PSA to lab Restart Crest or at 10mg daily Trial of Wellbutrin to aid in smoking cessation Check Lipids and LFTs in 3mos 04/24/2010 Appointment: Najma Og WPtel: [address] [place], [place] [phone] [place] FOLLOW UP 04/24/2010 Patient Education: Patient Medication Summary Completed 04/24/2010 Appointment: Najma Og WPtel: [address] [place], [place] [phone] [place] LAB 04/19/2010 Patient Education: Patient Medication Summary Completed 04/19/2010 Referral: Donavon Keller WPtel: [address] [id number] [place] Referral Completed Instructions Comment . Lab [...] conservative + labs. CBC & CMP at [facility] Discussed needed oral hydration [...]
[2019-10-14 22:56] LABS: BASOPHILS % (AUTO) 0 % (0-10); EOSINOPHILS # (AUTO) 0.2 10^3/uL (0.0-0.3); EOSINOPHILS % (AUTO) 2 % (0-10); HEMATOCRIT 42 % (40-54); HEMOGLOBIN 14.4 G/DL (13.3-17.7); LYMPHOCYTES % (AUTO) 21 % (12-44); MEAN CORPUSCULAR HEMOGLOBIN 32 PG (25-34); MEAN CORPUSCULAR HGB CONC 34 G/DL (32-36); MEAN CORPUSCULAR VOLUME 94 FL (80-99); MEAN PLATELET VOLUME 10.7 FL (7.4-10.4); MONOCYTES # (AUTO) 0.8 X 10^3 (0.0-1.0); MONOCYTES % (AUTO) 9 % (0-12); NEUTROPHILS # (AUTO) 6.2 X 10^3 (1.8-7.8); NEUTROPHILS % (AUTO) 68 % (42-75); PLATELET COUNT 225 10^3/uL (130-400); RED CELL DISTRIBUTION WIDTH 13.4 % (10.0-14.5); WHITE BLOOD COUNT 9.1 10^3/uL (4.3-11.0)
--- OUTSIDE RECORDS SUMMARY | 2019-10-14 22:56 | XMS REPORT | CCD ---
Author Author Inocente Og D.O. Organization [facility] Address [address] [place] [address] Phone Care Team Providers Care Paper Inspector Name Role Phone Najma Og D.O. PP Unavailable CCM Unavailable Summary Purpose Interface Exchange Insurance Providers Payer name Policy type / Coverage type Covered republican ID Effective Begin Date Effective End Date [employer] MEDICARE Medicare Part B [id number] Unknown [facility] Medicare Part B [id number] Un known Family history Father Diagnosis Age At Onset Diabetes mellitus Type 2 Unknown Myocardial infarction Unknown Brother Diagnosis Age At Onset Diabetes mellitus Type 2 Unknown Mother Diagnosis Age At Onset Osteoarthritis Unknown Cerebrovascular disease Unknown Social History Social History Element Codes Description Effective Dates Tobacco history SNOMED CT: 271301723 Never smoker 12/21/2014 Marital status Unknown 07/30/2010 [...] Fill Instructions amlodipine 5 mg tablet RxNorm: 098183 TAKE 1 TABLET BY MOUTH ON CE DAILY 03/22/2019 06/19/2019 Active metformin ER 500 mg tablet,extended release 24 hr RxNorm: 86 0975 TAKE 1 TABLET BY MOUTH ONCE DAILY 03/15/2019 No Stop Date Active propranolol ER 80 mg capsule,24 hr,extended release RxNorm: 554138 TAKE 1 CAPSULE BY MOUTH ONCE DAILY 03/15/2019 No Stop Date Active amlodipine 5 mg tablet RxNorm: 235911 1 Tablet(s) PO QD 12/27/2018 Inactive fenofibrate micronized 134 mg capsule RxNorm: 724090 TA KE 1 CAPSULE BY MOUTH ONCE DAILY FOR TRIGLYCERIDES 10/11/2018 No Stop Date Active amlodipine 5 mg tablet RxNorm: 580445 1 Tablet(s) PO QD 09/30/2018 Inactive metformin ER 500 mg tablet,extended release 24 hr RxNorm: 86 0975 TAKE 1 TABLET BY MOUTH ONCE DAILY 09/21/2018 03/14/2019 Inactive propranolol ER 80 mg capsule,24 hr,extended release RxNorm: 811882 TAKE 1 CAPSULE BY MOUTH ONCE DAILY 09/21/2018 03/14/2019 Inactive amlodipine 5 mg tablet RxNorm: 865510 1 Tablet(s) PO QD 08/25/2018 Inactive amlodipine 5 mg tablet RxNorm: 318507 1 Tablet(s) PO QD 08/25/2018 Inactive lisinopril 40 mg tablet RxNorm: 431153 TAKE 1 TABLET BY MOUTH O NCE DAILY 07/21/2018 08/24/2018 Inactive fenofibrate micronized 134 mg capsule RxNorm: 523035 TA KE 1 CAPSULE BY MOUTH ONCE DAILY FOR TRIGLYCERIDES 07/12/2018 10/10/2018 Inactive propranolol ER 80 mg capsule,24 hr,extended release RxNorm: 362793 TAKE 1 CAPSULE BY MOUTH ONCE DAILY 06/21/2018 09/20/2018 Inactive lisinopril 40 mg tablet RxNorm: 196864 TAKE 1 TABLET BY MOUTH O NCE DAILY 04/26/2018 07/20/2018 Inactive metformin ER 500 mg tablet,extended release 24 hr RxNorm: 085953 1 Tablet(s) QD 03/31/2018 09/20/2018 Inactive lisinopril 40 mg tablet RxNorm: 699854 TAKE 1 TABLET BY MOUTH O NCE DAILY 01/28/2018 04/25/2018 Inactive Vitamin D3 5,000 unit tablet RxNorm: 128416 1 Tablet(s) PO QD 01/1908/18/2018 Inactive fenofibrate micronized 134 mg capsule RxNorm: 628316 1 Capsule(s) PO QD for triglycerides 01/19/2018 07/11/2018 Inactive metformin ER 500 mg tablet,extended release 24 hr RxNorm: 615971 1 Tablet(s) QD 12/31/2017 03/30/2018 Inactive metformin ER 500 mg tablet,extended release 24 hr RxNorm: 621984 Tablet(s) 12/30/2017 12/30/2017 Inactive propranolol ER 80 mg capsule,24 hr,extended release RxNorm: 049278 1 Capsule(s) PO QD 12/17/2017 06/14/2018 Inactive metformin ER 500 mg tablet,extended release 24 hr RxNorm: 86 0975 1 Tablet(s) PO QD DUE FOR LABS AND APPT 12/02/2017 12/30/2017 Inactive Crestor 10 mg tablet RxNorm: 777088 TAKE ONE TABLET BY MOUTH ON CE DAILY 11/01/2017 01/18/2018 Inactive lisinopril 40 mg tablet RxNorm: 577667 TAKE ONE TABLET BY MOUTH ONCE DAILY [...] ER 80 mg capsule,24 hr,extended release RxNorm: 624058 1 Capsule(s) PO QD DUE FOR APPT 09/08/2017 12/17/2017 Inactive Crestor 10 mg tablet RxNorm: 168903 1 Tablet(s) PO QD T CHELSI ONE TABLET BY MOUTH DAILY 03/11/2017 09/06/2017 Inactive propranolol ER 80 mg capsule,24 hr,extended release RxNorm: 637597 1 Capsule(s) PO QD TAKE ONE CAPSULE BY MOUTH DAILY - REPLACES AMLODOPINE 03/11/2017 09/08/2017 Inactive metformin ER 500 mg tablet,extended release 24 hr RxNorm: 86 0975 1 Tablet(s) PO QD 03/11/2017 09/08/2017 Inactive lisinopril 40 mg tablet RxNorm: 660237 1 Tablet(s) PO QD 03/11/2017 0 09/06/2017 Inactive lisinopril 40 mg tablet RxNorm: 603540 1 Tablet(s) PO QD 02/16/2017 1 05/11/2016 Inactive metformin ER 500 mg tablet,extended release 24 hr RxNorm: 86 0975 1 Tablet(s) PO QD Due for labs and follow up before further refills 02/16/2017 017 Inactive propranolol ER 80 mg capsule,24 hr,extended release RxNorm: 531896 Capsule(s) TAKE ONE CAPSULE BY MOUTH DAILY - REPLACES AMLODOPINE 11/19/20162016 Inactive lisinopril 40 mg tablet RxNorm: 854847 1 Tablet(s) PO QD 11/17/2016 1 04/18/2016 Inactive metformin ER 500 mg tablet,extended release 24 hr RxNorm: 86 0975 1 Tablet(s) PO QD 11/17/2016 02/16/2017 Inactive lisinopril 40 mg tablet RxNorm: 949092 1 Tablet(s) PO Q D TAKE ONE TABLET BY MOUTH DAILY 08/19/2016 11/17/2016 Inactive metformin ER 500 mg tablet,extended release 24 hr RxNorm: 86 0975 Tablet(s) TAKE ONE TABLET BY MOUTH DAILY 08/19/2016 11/16/2016 Inactive propranolol ER 80 mg capsule,24 hr,extended release RxNorm: 894024 Capsule(s) TAKE ONE CAPSULE BY MOUTH DAILY - REPLACES AMLODOPINE 08/19/20162016 Inactive Crestor 10 mg tablet RxNorm: 590833 TAKE ONE TABLET BY MOUTH DAILY 06/16/2016 03/10/2017 Inactive lisinopril 40 mg tablet RxNorm: 928164 1 Tablet(s) PO Q D TAKE ONE TABLET BY MOUTH DAILY 05/23/2016 08/18/2016 Inactive metformin ER 500 mg tablet,extended release 24 hr RxNorm: 86 0975 TAKE ONE TABLET BY MOUTH DAILY 05/23/2016 08/19/2016 Inactive propranolol ER 80 mg capsule,24 hr,extended release RxNorm: 647023 TAKE ONE CAPSULE BY MOUTH DAILY - REPLACES AMLODOPINE 05/23/2016 08/19/2016 [place]ne [facility]ive Crestor 10 mg tablet RxNorm: 860255 TAKE ONE TABLET BY MOUTH DAILY 03/31/2016 06/15/2016 Inactive metformin ER 500 mg tablet,extended release 24 hr RxNorm: 86 0975 TAKE ONE TABLET BY MOUTH DAILY 02/19/2016 05/22/2016 Inactive propranolol ER 80 mg capsule,24 hr,extended release RxNorm: 080585 TAKE ONE CAPSULE BY MOUTH DAILY - REPLACES AMLODOPINE 11/23/2015 05/20/2016 [place] [facility]ive metformin ER 500 mg tablet,extended release 24 hr RxNorm: 86 0975 TAKE ONE TABLET BY MOUTH DAILY 11/08/2015 02/05/2016 Inactive Bactroban Nasal 2 % ointment RxNorm: 231832 Apply topic ally to affected area twice daily 09/10/2015 03/09/2016 Inactive Vibramycin 100 mg capsule RxNorm: 479430 1 Capsule(s) PO BID 201509/23/2015 Inactive lisinopril 40 mg tablet RxNorm: 905204 1 Tablet(s) PO Q D TAKE ONE TABLET BY MOUTH DAILY 08/27/2015 02/22/2016 Inactive metformin ER 500 mg tablet,extended release 24 hr RxNorm: 86 0975 TAKE ONE TABLET BY MOUTH DAILY 08/06/2015 11/03/2015 Inactive Levsin/SL 0.125 mg sublingual tablet RxNorm: 7121172 1 T ablet(s) SL Q4H as needed for stomach cramps 06/29/2015 07/03/2015 Inactive lisinopril 40 mg tablet RxNorm: 792478 Tablet(s) TAKE ONE TABLE T BY MOUTH DAILY 06/07/2015 08/26/2015 Inactive propranolol ER 80 mg capsule,24 hr,extended release RxNorm: 970170 TAKE ONE CAPSULE BY MOUTH DAILY - REPLACES AMLODOPINE 05/30/2015 11/22/2015 Yvonne ctive metformin ER 500 mg tablet,extended release 24 hr RxNorm: 86 0975 1 Tablet(s) PO QD 05/10/2015 08/05/2015 Inactive Crestor 10 mg tablet RxNorm: 837721 TAKE ONE TABLET BY MOUTH DAILY 04/18/2015 10/14/2015 Inactive metformin ER 500 mg tablet,extended release 24 hr RxNorm: 86 0975 TAKE ONE TABLET BY MOUTH DAILY 02/07/2015 05/10/2015 Inactive sildenafil 20 mg tablet RxNorm: 873846 1 Tablet(s) PO QD 01/17/2015 1 04/17/2014 Inactive propranolol ER 80 mg capsule,24 hr,extended release RxNorm: 695730 1 Capsule(s) PO QD replaces amlodopine 11/28/2014 05/26/2015 Inactive [NICOLAS FOR UNINSURED PATIENTS -- BIN:066989, PCN: [id number], Group: [id number], ID# [id number], Process claim through [employer], for questions: . THIS IS NOT INSURANCE.] lisinopril 40 mg tablet RxNorm: 169456 TAKE ONE TABLET BY MOUTH DAILY 11/16/2014 06/07/2015 Inactive lisinopril 40 mg tablet RxNorm: 782327 1 Tablet(s) PO QD 08/21/2014 0 11/15/2014 Inactive [AttnRPh: Saving apply/adjudicate RxGRP: [id number] RxBIN:[id number] RxPCN: ID#:[id number]] lisinopril 40 mg tablet RxNorm: 727072 1 Tablet(s) PO Q D NEEDS SEEN FOR APPOINTMENT 07/14/2014 08/21/2014 Inactive [AttnRPh: Saving apply/adjudicate RxGRP:SG20 RxBIN:[id number] RxPCN: ID#:[id number]] Crestor 10 mg tablet RxNorm: 557962 TAKE ONE TABLET BY MOUTH EV EILEEN DAY 07/06/2014 01/01/2015 Inactive metformin ER 500 mg tablet,extended release 24 hr RxNorm: 86 0975 1 Tablet(s) QD TAKE ONE TABLET BY MOUTH ONCE A DAY 06/09/2014 12/05/2014 Inactive propranolol ER 80 mg capsule,24 hr,extended release RxNorm: 386537 1 Capsule(s) PO QD replaces amlodopine 06/05/2014 11/28/2014 Inactive [VamoIN GS FOR UNINSURED PATIENTS -- BIN:[id number], PCN: ASPROD1, Group: [id number], ID# [id number], Process claim through [employer], for questions: . THIS IS NOT INSURANCE.] propranolol ER 80 mg capsule,24 hr,extended release RxNorm: 527272 1 Capsule(s) PO QD replaces amlodopine 03/07/2014 06/05/2014 Inactive [SAVIN GS FOR UNINSURED PATIENTS -- BIN:296648, PCN: ASPROD1, Group: [id number], ID# [id number], Process claim through [employer], for questions: . THIS IS NOT INSURANCE.] metformin ER 500 mg tablet,extended release 24 hr RxNorm: 86 0975 TAKE ONE TABLET BY MOUTH ONCE A DAY 12/15/2013 06/09/2014 Inactive propranolol ER 80 mg capsule,24 hr,extended release RxNorm: 515637 1 Capsule(s) PO QD replaces amlodopine 12/09/2013 03/07/2014 Inactive [NICOLAS FOR UNINSURED PATIENTS -- BIN:031683, PCN: [id number], Group: [id number], ID# [id number], Process claim through [employer], for questions: . THIS IS NOT INSURANCE.] acyclovir 800 mg tablet RxNorm: 366372 1 Tablet(s) PO QID 09/23/2013 09/29/2013 Inactive gabapentin 300 mg capsule RxNorm: 548867 1 Capsule(s) PO BID 201310/07/2013 Inactive metformin ER 500 mg tablet,extended release 24 hr RxNorm: 86 0975 1 Tablet(s) PO QD 09/19/2013 12/14/2013 Inactive propranolol ER 80 mg capsule,24 hr,extended release RxNorm: 063210 1 Capsule(s) PO QD replaces amlodopine 09/15/2013 12/09/2013 Inactive metformin ER 500 mg 24 hr tablet,extended release RxNorm: 86 0975 1 Tablet(s) PO QD 09/15/2013 09/18/2013 Inactive lisinopril 40 mg tablet RxNorm: 855858 1 Tablet(s) PO QD 07/19/2013 0 07/14/2014 Inactive Crestor 10 mg tablet RxNorm: 872791 Tablet(s) PO TAKE O NE TABLET BY MOUTH EVERY DAY 07/12/2013 07/05/2014 Inactive propranolol ER 80 mg capsule,24 hr,extended release RxNorm: 492418 1 Capsule(s) PO QD replaces amlodopine 06/20/2013 09/15/2013 Inactive triamcinolone acetonide 0.1 % topical ointment RxNorm: 27606 36 Application TOP BID 06/20/2013 06/26/2013 Inactive Crestor 10 mg tablet RxNorm: 760041 1 Tablet(s) PO QD 04/18/201310/2013 Inactive Viagra 100 mg tablet RxNorm: 876244 1 Tablet(s) PO as directed 01/0508/18/2018 Inactive TAKE ONE TABLET BY MOUTH DIRECTED Crestor 10 mg tablet RxNorm: 743714 1 Tablet(s) PO QD 01/17/201304/06 Inactive metformin ER 500 mg tablet,extended release 24 hr RxNorm: 86 0975 1 Tablet(s) PO QD TAKE ONE TABLET BY MOUTH EVERY DAY 12/23/2012 09/15/2013 Inactive triamcinolone acetonide 0.1 % topical ointment RxNorm: 77150 36 Application TOP BID 08/27/2012 09/02/2012 Inactive ketoconazole 2 % topical cream RxNorm: 142377 1 Application TOP QAM 08/27/2012 09/02/2012 Inactive lisinopril 40 mg tablet RxNorm: 674641 1 Tablet(s) PO QD 07/21/2012 0 07/15/2013 Inactive Crestor 10 mg tablet RxNorm: 269624 1 Tablet(s) PO QD 07/21/201210/04 Inactive amlodipine 10 mg tablet RxNorm: 995693 1 Tablet(s) PO QHS 07/21/2012 07/15/2013 Inactive metformin ER 500 mg tablet,extended release 24 hr RxNorm: 86 0977 Tablet(s) PO TAKE ONE TABLET BY MOUTH EVERY DAY 03/31/2012 12/22/2012 Inactive lisinopril 40 mg tablet RxNorm: 222866 1 Tablet(s) PO QD 07/29/2011 0 07/20/2012 Inactive amlodipine 10 mg tablet RxNorm: 467438 1 Tablet(s) PO QHS 07/29/2011 07/20/2012 Inactive amlodipine 10 mg Tab RxNorm: 214724 1 Tablet(s) PO QHS 07/29/2011 Inactive Viagra 100 mg tablet RxNorm: 058894 1 Tablet(s) PO as directed 07/0601/24/2013 Inactive TAKE ONE TABLET BY MOUTH DIRECTED Crestor 10 mg tablet RxNorm: 643189 1 Tablet(s) PO QD 07/29/201107/05 Inactive Norvasc 5 mg Tab RxNorm: 162745 1 Tablet(s) PO QD 07/16/2011 07/28/19 12 Inactive Norvasc 5 mg Tab RxNorm: 740047 1 Tablet(s) PO QD 06/26/2011 07/15/19 12 Inactive lisinopril 40 mg Tab RxNorm: 609278 1 Tablet(s) PO QD 05/13/201107/06 Inactive metformin ER 500 mg tablet,extended release 24 hr RxNorm: 86 0977 1 Tablet(s) PO QD 03/18/2011 07/28/2011 Inactive Crestor 10 mg Tab RxNorm: 628247 1 Tablet(s) PO QHS 01/27/20112011 Inactive metformin ER 500 mg 24 hr Tab RxNorm: 661637 1 Tablet(s) PO QD 11/0403/17/2011 Inactive Viagra 100 mg Tab RxNorm: 081747 Tablet(s) PO TAKE ON E TABLET BY MOUTH DIRECTED 08/26/2010 07/28/2011 Inactive metformin ER 500 mg 24 hr Tab RxNorm: 504210 1 Tablet(s) PO QD 07/0611/18/2010 Inactive Crestor 10 mg Tab RxNorm: 934049 1 Tablet(s) PO QHS 07/30/20102010 Inactive Crestor 10 mg Tab RxNorm: 416764 1 Tablet(s) PO QHS 05/20/20102010 Inactive Wellbutrin SR 150 mg Tab RxNorm: 938150 1 Tablet(s) PO QAM 04/24/19 11 07/22/2010 Inactive Multivitamin And Mineral tablet RxNorm: 1 Tablet(s) PO QD No Start Date Active FreeStyle Lite Strips RxNorm: 1 Unit Dose Miscel laneous AC & HS check blood sugar AC and HS No Start Date Active Co Q-10 200 mg capsule RxNorm: 096088 1 Capsule(s) PO QD No Start Date Active lancets RxNorm: 1 Milliliter(s) Miscellaneous AC & HS No Start Robert e Active Vitamin D3 4,000 unit capsule RxNorm: 9519666 1 Capsule(s) PO QD No Start Date 07/08/2016 Inactive Fish Oil 360 mg-1,200 mg capsule RxNorm: 549144 2 Capsule(s) PO QD No Start Date 01/30/2019 Inactive hydrocodone 5 mg-acetaminophen 325 mg tablet RxNorm: 405634 1 Tablet(s) PO Q4H as needed for severe pain No Start Date 12/30/2015 Inactive Xanax 0.25 mg tablet RxNorm: 732829 1/2 Tablet(s) PO PRN for se andrea stress No Start Date 07/08/2016 Inactive lisinopril 40 mg Tab RxNorm: 999405 1 Tablet(s) PO QD No Start Date 0 05/12/2011 Inactive Fish Oil 1,000 mg capsule RxNorm: 1 Capsule(s) PO QD No Start Date 09/18/2014 Inactive naproxen 500 mg Tab RxNorm: 551542 1 Tablet(s) PO BID No Start Date 0 07/28/2011 Inactive aspirin 81 mg tablet RxNorm: 300861 1 Tablet(s) PO QD No Start Date 0 05/09/2018 Inactive Crestor 10 mg Tab RxNorm: 667494 1 Tablet(s) PO QD No Start Date 07/06 Inactive Crestor 5 mg tablet RxNorm: 309934 1 Tablet(s) PO QD No Start Date Inactive Fish Oil Oral RxNorm: Oral No Start Date 09/18/2014 Inactive Viagra 100 mg Tab RxNorm: 974807 1 Tablet(s) PO as directed No Star [...] Code Item Item Code Result Date S [facility] Location MEAN GLUC 7308129 Calc Mean Gluc 140 mg/dL 01/26/2019 Unkn own GLYCOSYLATED HEMOGLOBIN TEST 29704 Hgb A1c 80322-4 6.5 % 1 Unknown COMPREHENSIVE METABOLIC 19616 AST 17 U/L 2018 Unknown COMPREHENSIVE METABOLIC 22907 ALT 19 U/L 2018 Unknown COMPREHENSIVE METABOLIC 27900 BUN 19 mg/dL 2018 Unknown COMPREHENSIVE METABOLIC 62148 ALBUMIN 4.3 g/dL 2018 Unknown COMPREHENSIVE METABOLIC 00597 CHLORIDE 103 mmol/L 01/26 Unknown COMPREHENSIVE METABOLIC 15153 Bili Total 0.6 mg/dL 01/26 Unknown COMPREHENSIVE METABOLIC 07516 ALK PHOS 60 U/L 2018 Unknown COMPREHENSIVE METABOLIC 12171 SODIUM 140 mmol/L 01/26 Unknown COMPREHENSIVE METABOLIC 53772 CREATININE 1.21 mg/dL 01/05 Unknown COMPREHENSIVE METABOLIC 21338 CALCIUM 9.6 mg/dL 2018 Unknown COMPREHENSIVE METABOLIC 22672 POTASSIUM 4.5 mmol/L 01/26 Unknown COMPREHENSIVE METABOLIC 97363 Total Protein 6.7 g/dL Unknown COMPREHENSIVE METABOLIC 19124 Glucose 111 mg/dL 2018 Unknown COMPREHENSIVE METABOLIC 19054 Bicarbonate 28 mmol/L 01/05 Unknown COMPREHENSIVE METABOLIC 83607 AGAP 9 mmol/L 2018 Unknown COMPLETE BLOOD COUNT 0591778 WBC 10.7 10e9/L 019 Unknown COMPLETE BLOOD COUNT [id number] RBC 4.38 10e12/L 2018 Unknown COMPLETE BLOOD COUNT [id number] HEMOGLOBIN 13.7 g/dL 01/27/20 19 Unknown COMPLETE BLOOD COUNT [id number] HEMATOCRIT 42.0 % 01/27/20 19 Unknown COMPLETE BLOOD COUNT 0999858 MCV 95.9 fL 9 Unknown COMPLETE BLOOD COUNT [id number] MCH 31.3 pg 9 Unknown COMPLETE BLOOD COUNT 7616792 MCHC 32.6 g/dL 9 Unknown COMPLETE BLOOD COUNT [id number] PLATELET COUNT 232 10e9/L Unknown COMPLETE BLOOD COUNT 2998645 Mean Plt Volume 11.4 fL Unknown COMPLETE BLOOD COUNT 8348454 Neut Auto 68.7 % 9 Unknown COMPLETE BLOOD COUNT [id number] Lymph Auto 21.2 % 01/27/20 19 Unknown COMPLETE BLOOD COUNT [id number] [place] Auto 8.1 % 9 Unknown COMPLETE BLOOD COUNT 8127928 Eos Auto 1.8 % 9 Unknown COMPLETE BLOOD COUNT [id number] RDW 14.1 % 9 Unknown COMPLETE BLOOD COUNT 2679458 Baso Auto 0.2 % 9 Unknown COMPLETE BLOOD COUNT [id number] Neutrophil Abs 7.35 10e9/L Unknown COMPLETE BLOOD COUNT [id number] Lymphocyte Abs 2.27 10e9/L Unknown COMPLETE BLOOD COUNT [id number] Monocyte Abs 0.87 10e9/L 01/05 Unknown COMPLETE BLOOD COUNT [id number] Eosinophil Abs 0.19 10e9/L Unknown COMPLETE BLOOD COUNT [id number] RDW-SD 47.7 fL 9 Unknown COMPLETE BLOOD COUNT [id number] Basophil Abs 0.02 10e9/L 01/05 Unknown GFR CALC [id number] GFR Non Afr Amr 59 mL/min 01/26/2019 Unk nown GFR CALC [id number] GFR Afr Amr >60 mL/min 01/26/2019 Unknow n LIPID GROUP 25487 Cholesterol 215 mg/dL 01/26/2019 Unkno wn LIPID GROUP 73389 Triglyceride 221 mg/dL 01/26/2019 Unkn own LIPID GROUP 37221 HDL CHOLESTEROL 41 mg/dL 01/26/2019 U nknown LIPID GROUP 29273 Chol/HDL Ratio 5.24 ratio 01/26/2019 U nknown LIPID GROUP 41889 NON-HDL Chol 174 mg/dL 01/26/2019 Unkn own LIPID GROUP 21884 LDL Cholesterol 130 mg/dL 01/26/2019 [place] [address] Glucose 104 mg/dL 09/30 [place] [address] CREATININE 1.18 mg/dL [place] [address] BUN 19 mg/dL 09/30 [place] [address] SODIUM 139 mmol/L 09/05 [place] [address] POTASSIUM 4.1 mmol/L 09/05 [place] [address] CHLORIDE 105 mmol/L 09/05 [place] [address] Bicarbonate 26 mmol/L [place] [address] AGAP 8 mmol/L 09/30 [place] [address] CALCIUM 9.3 mg/dL 09/30 Unknown GFR CALC [id number] GFR Afr Amr >60 mL/min 09/30/2018 Unknow n GFR CALC [id number] GFR Non Afr Amr >60 mL/min 09/30/2018 Un known MICROALBUMIN URINE RANDOM 36911 U Microalbumin <2.0 mg/L 08/19/2018 Unknown MICROALBUMIN URINE RANDOM 42811 U Creatinine 66 mg/dL 0 08/19/2018 Unknown MICROALBUMIN URINE RANDOM 42367 ALB/CR Ratio <3.0 mg/gCR 08/19/2018 Unknown COMPREHENSIVE METABOLIC 54603 AST 21 U/L 2018 Unknown COMPREHENSIVE METABOLIC 07595 ALT 20 U/L 2018 Unknown COMPREHENSIVE METABOLIC 23781 BUN 31 mg/dL 2018 Unknown COMPREHENSIVE METABOLIC 30660 ALBUMIN 4.4 g/dL 2018 Unknown COMPREHENSIVE METABOLIC 02327 CHLORIDE 105 mmol/L 08/16 Unknown COMPREHENSIVE METABOLIC 15861 Bili Total 0.5 mg/dL 08/16 Unknown COMPREHENSIVE METABOLIC 39263 ALK PHOS 40 U/L 2018 Unknown COMPREHENSIVE METABOLIC 56770 SODIUM 140 mmol/L 08/16 Unknown COMPREHENSIVE METABOLIC 91773 CREATININE 1.45 mg/dL 08/04 Unknown COMPREHENSIVE METABOLIC 99560 CALCIUM 9.8 mg/dL 2018 Unknown COMPREHENSIVE METABOLIC 05223 POTASSIUM 5.1 mmol/L 08/16 Unknown COMPREHENSIVE METABOLIC 79898 Total Protein 6.9 g/dL Unknown COMPREHENSIVE METABOLIC 28920 Glucose 110 mg/dL 2018 Unknown COMPREHENSIVE METABOLIC 03794 Bicarbonate 25 mmol/L 08/04 Unknown COMPREHENSIVE METABOLIC 23224 AGAP 10 mmol/L 2018 Unknown GFR CALC 3010668 GFR Non Afr Amr 48 mL/min 08/16/2018 Unk nown GFR CALC 2009282 GFR Afr Amr 58 mL/min 08/16/2018 Unknown GLYCOSYLATED HEMOGLOBIN TEST 56496 Hgb A1c 46510-9 5.9 % 0 08/16/2018 Unknown LIPID GROUP 60196 Cholesterol 226 mg/dL 08/16/2018 Unkno wn LIPID GROUP 78463 Triglyceride 335 mg/dL 08/16/2018 Unkn own LIPID GROUP 60782 HDL CHOLESTEROL 32 mg/dL 08/16/2018 U nknown LIPID GROUP 53486 Chol/HDL Ratio 7.06 ratio 08/16/2018 U nknown LIPID GROUP 15558 NON-HDL Chol 194 mg/dL 08/16/2018 Unkn own LIPID GROUP 92404 LDL Cholesterol 127 mg/dL 08/16/2018 U nknown THYROID STIMULATING HORMONE 57304 TSH 2.475 uIU/mL 08/16/2018 Unknown COMPLETE BLOOD COUNT [id number] WBC 7.5 10e9/L 08/17/19 19 Unknown COMPLETE BLOOD COUNT [id number] RBC 4.09 10e12/L 2018 Unknown COMPLETE BLOOD COUNT [id number] HEMOGLOBIN 12.9 g/dL 08/17/19 19 Unknown COMPLETE BLOOD COUNT 7404659 HEMATOCRIT 40.0 % 08/17/19 19 Unknown COMPLETE BLOOD COUNT [id number] MCV 97.8 fL 9 Unknown COMPLETE BLOOD COUNT 7550799 MCH 31.5 pg 9 Unknown COMPLETE BLOOD COUNT [id number] MCHC 32.3 g/dL 9 Unknown COMPLETE BLOOD COUNT 1353236 PLATELET COUNT 258 10e9/L Unknown COMPLETE BLOOD COUNT 7069972 Mean Plt Volume 11.4 fL Unknown COMPLETE BLOOD COUNT 6026486 Neut Auto 62.9 % 9 Unknown COMPLETE BLOOD COUNT 0885330 Lymph Auto 27.3 % 08/17/19 19 Unknown COMPLETE BLOOD COUNT 4248602 [place] Auto 8.2 % 9 Unknown COMPLETE BLOOD COUNT 6809002 RDW 13.3 % 9 Unknown COMPLETE BLOOD COUNT 6503235 Eos Auto 1.5 % 9 Unknown COMPLETE BLOOD COUNT 8529121 Baso Auto 0.1 % 9 Unknown COMPLETE BLOOD COUNT 5531758 Neutrophil Abs 4.72 10e9/L Unknown COMPLETE BLOOD COUNT 2716550 Lymphocyte Abs 2.05 10e9/L Unknown COMPLETE BLOOD COUNT [id number] Monocyte Abs 0.62 10e9/L 08/04 Unknown COMPLETE BLOOD COUNT 1644041 Eosinophil Abs 0.11 10e9/L Unknown COMPLETE BLOOD COUNT 5387552 Basophil Abs 0.01 10e9/L 08/04 Unknown COMPLETE BLOOD COUNT [id number] RDW-SD 46.7 fL 9 Unknown MEAN GLUC 5544406 Calc Mean Gluc 123 mg/dL 08/16/2018 Unkn own LIPID GROUP 84659 Cholesterol 212 mg/dL 05/05/2018 Unkno wn LIPID GROUP 62432 Triglyceride 271 mg/dL 05/05/2018 Unkn own LIPID GROUP 12081 HDL CHOLESTEROL 38 mg/dL 05/05/2018 U nknown LIPID GROUP 82696 Chol/HDL Ratio 5.58 ratio 05/05/2018 U nknown LIPID GROUP 43616 NON-HDL Chol 174 mg/dL 05/05/2018 Unkn own LIPID GROUP 28751 LDL Cholesterol 120 mg/dL 05/05/2018 U nknown GFR CALC 9405901 GFR Non Afr Amr 49 mL/min 05/05/2018 Unk nown GFR CALC 4590691 GFR Afr Amr 59 mL/min 05/05/2018 Unknown GLYCOSYLATED HEMOGLOBIN TEST 11323 Hgb A1c 02364-7 6.0 % 0 05/05/2018 Unknown MEAN GLUC 7696025 Calc Mean Gluc 126 mg/dL 05/05/2018 Unkn own COMPREHENSIVE METABOLIC 18881 AST 18 U/L 2018 Unknown COMPREHENSIVE METABOLIC 54429 ALT 23 U/L 2018 Unknown COMPREHENSIVE METABOLIC 08402 BUN 30 mg/dL 2018 Unknown COMPREHENSIVE METABOLIC 78069 ALBUMIN 4.3 g/dL 2018 Unknown COMPREHENSIVE METABOLIC 30350 CHLORIDE 106 mmol/L 05/05 Unknown COMPREHENSIVE METABOLIC 56975 Bili Total 0.4 mg/dL 05/05 Unknown COMPREHENSIVE METABOLIC 63291 ALK PHOS 39 U/L 2018 Unknown COMPREHENSIVE METABOLIC 13174 SODIUM 139 mmol/L 05/05 Unknown COMPREHENSIVE METABOLIC 82293 CREATININE 1.44 mg/dL 04/08 Unknown COMPREHENSIVE METABOLIC 63062 CALCIUM 9.6 mg/dL 2018 Unknown COMPREHENSIVE METABOLIC 68111 POTASSIUM 4.7 mmol/L 05/05 Unknown COMPREHENSIVE METABOLIC 83811 Total Protein 6.6 g/dL Unknown COMPREHENSIVE METABOLIC 01619 Glucose 112 mg/dL 2018 Unknown COMPREHENSIVE METABOLIC 70413 Bicarbonate 28 mmol/L 04/08 Unknown COMPREHENSIVE METABOLIC 12964 AGAP 5 mmol/L 2018 Unknown THYROID STIMULATING HORMONE 83619 TSH 3.725 uIU/mL 05/05/2018 Unknown COMPLETE BLOOD COUNT [id number] WBC 8.2 10e9/L 05/05/19 19 Unknown COMPLETE BLOOD COUNT [id number] RBC 4.02 10e12/L 2018 Unknown COMPLETE BLOOD COUNT 5187347 HEMOGLOBIN 12.7 g/dL 05/05/19 19 Unknown COMPLETE BLOOD COUNT [id number] HEMATOCRIT 39.3 % 05/05/19 19 Unknown COMPLETE BLOOD COUNT [id number] MCV 97.8 fL 9 Unknown COMPLETE BLOOD COUNT [id number] MCH 31.6 pg 9 Unknown COMPLETE BLOOD COUNT [id number] MCHC 32.3 g/dL 9 Unknown COMPLETE BLOOD COUNT [id number] PLATELET COUNT 213 10e9/L Unknown COMPLETE BLOOD COUNT [id number] Mean Plt Volume 11.7 fL Unknown COMPLETE BLOOD COUNT [id number] Neut Auto 55.7 % 9 Unknown COMPLETE BLOOD COUNT [id number] Lymph Auto 33.2 % 05/05/19 19 Unknown COMPLETE BLOOD COUNT [id number] [place] Auto 8.5 % 9 Unknown COMPLETE BLOOD COUNT [id number] Eos Auto 2.4 % 9 Unknown COMPLETE BLOOD COUNT [id number] RDW 13.9 % 9 Unknown COMPLETE BLOOD COUNT 1132908 Baso Auto 0.2 % 9 Unknown COMPLETE BLOOD COUNT [id number] Neutrophil Abs 4.57 10e9/L Unknown COMPLETE BLOOD COUNT [id number] Lymphocyte Abs 2.72 10e9/L Unknown COMPLETE BLOOD COUNT [id number] Monocyte Abs 0.70 10e9/L 04/08 Unknown COMPLETE BLOOD COUNT [id number] Eosinophil Abs 0.20 10e9/L Unknown COMPLETE BLOOD COUNT [id number] Basophil Abs 0.02 10e9/L 04/08 Unknown COMPLETE BLOOD COUNT [id number] RDW-SD 48.8 fL 9 Unknown MICROALBUMIN URINE RANDOM 36097 U Microalbumin 19.3 mg/L 01/19/2018 Unknown MICROALBUMIN URINE RANDOM 01812 U Creatinine 96 mg/dL 1 Unknown MICROALBUMIN URINE RANDOM 98459 ALB/CR Ratio 20.1 mg/gCR 01/19/2018 Unknown LIPID GROUP 79099 Cholesterol 173 mg/dL 01/13/2018 Unkno wn LIPID GROUP 58503 Triglyceride 386 mg/dL 01/13/2018 Unkn own LIPID GROUP 65167 HDL CHOLESTEROL 37 mg/dL 01/13/2018 U nknown LIPID GROUP 75547 Chol/HDL Ratio 4.68 ratio 01/13/2018 U nknown LIPID GROUP 01703 NON-HDL Chol 136 mg/dL 01/13/2018 Unkn own LIPID GROUP 99211 LDL Cholesterol 59 mg/dL 01/13/2018 U nknown COMPLETE BLOOD COUNT [id number] WBC TNP:Client Request 01/13/2018 Unknown COMPLETE BLOOD COUNT [id number] RBC TNP:Client Request 01/13/2018 Unknown COMPLETE BLOOD COUNT [id number] HEMOGLOBIN TNP:Client Request 01/13/2018 Unknown COMPLETE BLOOD COUNT [id number] HEMATOCRIT TNP:Client Request 01/13/2018 Unknown COMPLETE BLOOD COUNT [id number] MCV TNP:Client Request 01/13/2018 Unknown COMPLETE BLOOD COUNT [id number] MCH TNP:Client Request 01/13/2018 Unknown COMPLETE BLOOD COUNT [id number] MCHC TNP:Client Request 01/13/2018 Unknown COMPLETE BLOOD COUNT [id number] PLATELET COUNT TNP:Client Req uest 01/13/2018 Unknown COMPLETE BLOOD COUNT [id number] Mean Plt Volume TNP:Client Re quest 01/13/2018 Unknown COMPLETE BLOOD COUNT [id number] Neut Auto TNP:Client Request 01/13/2018 Unknown COMPLETE BLOOD COUNT [id number] Lymph Auto TNP:Client Request 01/13/2018 Unknown COMPLETE BLOOD COUNT [id number] [place] Auto TNP:Client Request 01/13/2018 Unknown COMPLETE BLOOD COUNT [id number] RDW TNP:Client Request 01/13/2018 Unknown COMPLETE BLOOD COUNT [id number] Eos Auto TNP:Client Request 01/13/2018 Unknown COMPLETE BLOOD COUNT [id number] Baso Auto TNP:Client Request 01/13/2018 Unknown COMPLETE BLOOD COUNT [id number] Neutrophil Abs TNP:Client Req uest 01/13/2018 Unknown COMPLETE BLOOD COUNT [id number] Lymphocyte Abs TNP:Client Req uest 01/13/2018 Unknown COMPLETE BLOOD COUNT [id number] Monocyte Abs TNP:Client Reque st 01/13/2018 Unknown COMPLETE BLOOD COUNT [id number] Eosinophil Abs TNP:Client Req uest 01/13/2018 Unknown COMPLETE BLOOD COUNT [id number] Basophil Abs TNP:Client Reque st 01/13/2018 Unknown COMPLETE BLOOD COUNT [id number] RDW-SD TNP:Client Request 01/13/2018 Unknown GLYCOSYLATED HEMOGLOBIN TEST 89272 Hgb A1c 78095-7 6.2 % 1 Unknown THYROID STIMULATING HORMONE 36697 TSH 2.764 uIU/mL 01/13/2018 Unknown COMPREHENSIVE METABOLIC 04713 AST 19 U/L 2017 Unknown COMPREHENSIVE METABOLIC 60157 ALT 21 U/L 2017 Unknown COMPREHENSIVE METABOLIC 36825 BUN 16 mg/dL 2017 Unknown COMPREHENSIVE METABOLIC 76329 ALBUMIN 4.2 g/dL 2017 Unknown COMPREHENSIVE METABOLIC 95060 CHLORIDE 105 mmol/L 01/13 Unknown COMPREHENSIVE METABOLIC 86065 Bili Total 0.5 mg/dL 01/13 Unknown COMPREHENSIVE METABOLIC 57016 ALK PHOS 85 U/L 2017 Unknown COMPREHENSIVE METABOLIC 59175 SODIUM 139 mmol/L 01/13 Unknown COMPREHENSIVE METABOLIC 48149 CREATININE 1.07 mg/dL 01/04 Unknown COMPREHENSIVE METABOLIC 87754 CALCIUM 9.2 mg/dL 2017 Unknown COMPREHENSIVE METABOLIC 02949 POTASSIUM 4.4 mmol/L 01/13 Unknown COMPREHENSIVE METABOLIC 07017 Total Protein 7.7 g/dL Unknown COMPREHENSIVE METABOLIC 65856 Glucose 130 mg/dL 2017 Unknown COMPREHENSIVE METABOLIC 37284 Bicarbonate 27 mmol/L 01/04 Unknown COMPREHENSIVE METABOLIC 28484 AGAP 7 mmol/L 2017 Unknown PSA EQUIMOLAR JERSON 99748 PSA Total 1.16 ng/mL 8 Unknown MEAN GLUC 6325533 Calc Mean Gluc 131 mg/dL 01/13/2018 Unkn own GFR CALC 1796899 GFR Non Afr Amr >60 mL/min 01/13/2018 Un known GFR CALC [id number] GFR Afr Amr >60 mL/min 01/13/2018 Unknow n MEAN GLUC 0738803 Calc Mean Gluc 134 mg/dL 10/06/2017 Unkn own GFR CALC 6786552 GFR Non Afr Amr >60 mL/min 10/06/2017 Un known GFR CALC 1951104 GFR Afr Amr >60 mL/min 10/06/2017 Unknow n GLYCOSYLATED HEMOGLOBIN TEST 43087 Hgb A1c 23147-1 6.3 % 0 10/06/2017 Unknown VITAMIN B 12 01983 VITAMIN B12 1202 pg/mL 10/06/2017 Unk nown COMPLETE BLOOD COUNT [id number] WBC 7.4 10e9/L 10/07/19 18 Unknown COMPLETE BLOOD COUNT [id number] RBC 4.24 10e12/L 2017 Unknown COMPLETE BLOOD COUNT [id number] HEMOGLOBIN 13.5 g/dL 10/07/19 18 Unknown COMPLETE BLOOD COUNT 2305544 HEMATOCRIT 41.6 % 10/07/19 18 Unknown COMPLETE BLOOD COUNT 2327317 MCV 98.1 fL 8 Unknown COMPLETE BLOOD COUNT [id number] MCH 31.8 pg 8 Unknown COMPLETE BLOOD COUNT 1955836 MCHC 32.5 g/dL 8 Unknown COMPLETE BLOOD COUNT [id number] PLATELET COUNT 223 10e9/L 06/2017 Unknown COMPLETE BLOOD COUNT [id number] Mean Plt Volume 11.9 fL 06/2017 Unknown COMPLETE BLOOD COUNT 6746781 Neut Auto 58.0 % 8 Unknown COMPLETE BLOOD COUNT 4323671 Lymph Auto 29.7 % 10/07/19 18 Unknown COMPLETE BLOOD COUNT [id number] [place] Auto 8.3 % 8 Unknown COMPLETE BLOOD COUNT 6754830 RDW 14.0 % 8 Unknown COMPLETE BLOOD COUNT 9292038 Eos Auto 3.7 % 8 Unknown COMPLETE BLOOD COUNT [id number] Baso Auto 0.3 % 8 Unknown COMPLETE BLOOD COUNT [id number] Neutrophil Abs 4.29 10e9/L Unknown COMPLETE BLOOD COUNT [id number] Lymphocyte Abs 2.20 10e9/L Unknown COMPLETE BLOOD COUNT [id number] Monocyte Abs 0.61 10e9/L 06/2017 Unknown COMPLETE BLOOD COUNT [id number] Eosinophil Abs 0.27 10e9/L Unknown COMPLETE BLOOD COUNT [id number] RDW-SD 48.6 fL 8 Unknown COMPLETE BLOOD COUNT [id number] Basophil Abs 0.02 10e9/L 06/2017 Unknown LIPID GROUP 03823 Cholesterol 216 mg/dL 10/06/2017 Unkno wn LIPID GROUP 35731 Triglyceride 335 mg/dL 10/06/2017 Unkn own LIPID GROUP 76904 HDL CHOLESTEROL 33 mg/dL 10/06/2017 U nknown LIPID GROUP 05253 Chol/HDL Ratio 6.55 ratio 10/06/2017 U nknown LIPID GROUP 91049 NON-HDL Chol 183 mg/dL 10/06/2017 Unkn own LIPID GROUP 70095 LDL Cholesterol 116 mg/dL 10/06/2017 U nknown COMPREHENSIVE METABOLIC 07973 AST 15 U/L 2017 Unknown COMPREHENSIVE METABOLIC 73792 ALT 15 U/L 2017 Unknown COMPREHENSIVE METABOLIC 31680 BUN 21 mg/dL 2017 Unknown COMPREHENSIVE METABOLIC 14563 ALBUMIN 4.1 g/dL 2017 Unknown COMPREHENSIVE METABOLIC 67701 CHLORIDE 107 mmol/L 10/06 Unknown COMPREHENSIVE METABOLIC 10421 Bili Total 0.6 mg/dL 10/06 Unknown COMPREHENSIVE METABOLIC 66065 ALK PHOS 68 U/L 2017 Unknown COMPREHENSIVE METABOLIC 38955 SODIUM 140 mmol/L 10/06 Unknown COMPREHENSIVE METABOLIC 13853 CREATININE 1.12 mg/dL 06/2017 Unknown COMPREHENSIVE METABOLIC 57899 CALCIUM 9.7 mg/dL 2017 Unknown COMPREHENSIVE METABOLIC 58655 POTASSIUM 4.6 mmol/L 10/06 Unknown COMPREHENSIVE METABOLIC 79557 Total Protein 6.6 g/dL Unknown COMPREHENSIVE METABOLIC 31229 Glucose 114 mg/dL 2017 Unknown COMPREHENSIVE METABOLIC 87090 Bicarbonate 26 mmol/L 06/2017 Unknown COMPREHENSIVE METABOLIC 12879 AGAP 7 mmol/L 2017 Unknown GLYCOSYLATED HEMOGLOBIN TEST 78288 Hgb A1c 78755-1 6.1 % 1 05/05/2016 Unknown GFR CALC 7658551 GFR Non Afr Amr >60 mL/min 03/05/2017 Un known GFR CALC 9940744 GFR Afr Amr >60 mL/min 03/05/2017 Unknow n MEAN GLUC 1151005 Calc Mean Gluc 128 mg/dL 03/05/2017 Unkn own COMPREHENSIVE METABOLIC 94748 AST 18 U/L 2016 Unknown COMPREHENSIVE METABOLIC 43001 ALT 20 U/L 2016 Unknown COMPREHENSIVE METABOLIC 18893 BUN 15 mg/dL 2016 Unknown COMPREHENSIVE METABOLIC 01553 ALBUMIN 4.3 g/dL 2016 Unknown COMPREHENSIVE METABOLIC 93246 CHLORIDE 105 mmol/L 03/05 Unknown COMPREHENSIVE METABOLIC 04370 Bili Total 0.5 mg/dL 03/05 Unknown COMPREHENSIVE METABOLIC 29903 ALK PHOS 57 U/L 2016 Unknown COMPREHENSIVE METABOLIC 54999 SODIUM 141 mmol/L 03/05 Unknown COMPREHENSIVE METABOLIC 91926 CREATININE 1.07 mg/dL 02/06 Unknown COMPREHENSIVE METABOLIC 69429 CALCIUM 9.3 mg/dL 2016 Unknown COMPREHENSIVE METABOLIC 08238 POTASSIUM 4.8 mmol/L 03/05 Unknown COMPREHENSIVE METABOLIC 90910 Total Protein 6.2 g/dL Unknown COMPREHENSIVE METABOLIC 75014 Glucose 118 mg/dL 2016 Unknown COMPREHENSIVE METABOLIC 47087 Bicarbonate 29 mmol/L 02/06 Unknown COMPREHENSIVE METABOLIC 01720 AGAP 7 mmol/L 2016 Unknown FREE T4 51631 T4 Free 1.38 ng/dL 03/05/2017 Unknown COMPLETE BLOOD COUNT [id number] WBC 8.4 10e9/L 03/05/20 17 Unknown COMPLETE BLOOD COUNT [id number] RBC 4.11 10e12/L 2016 Unknown COMPLETE BLOOD COUNT [id number] HEMOGLOBIN 12.8 g/dL 03/05/20 17 Unknown COMPLETE BLOOD COUNT 9694893 HEMATOCRIT 40.1 % 03/05/20 17 Unknown COMPLETE BLOOD COUNT [id number] MCV 97.6 fL 7 Unknown COMPLETE BLOOD COUNT 4841390 MCH 31.1 pg 7 Unknown COMPLETE BLOOD COUNT 7059152 MCHC 31.9 g/dL 7 Unknown COMPLETE BLOOD COUNT 7939004 PLATELET COUNT 184 10e9/L Unknown COMPLETE BLOOD COUNT 3972264 Mean Plt Volume 11.3 fL Unknown COMPLETE BLOOD COUNT 7078361 Neut Auto 62.5 % 7 Unknown COMPLETE BLOOD COUNT 7643779 Lymph Auto 26.4 % 03/05/20 17 Unknown COMPLETE BLOOD COUNT 5975712 [place] Auto 7.9 % 7 Unknown COMPLETE BLOOD COUNT 8783255 RDW 13.5 % 7 Unknown COMPLETE BLOOD COUNT 6634358 Eos Auto 3.0 % 7 Unknown COMPLETE BLOOD COUNT 9220240 Baso Auto 0.2 % 7 Unknown COMPLETE BLOOD COUNT 1241662 Neutrophil Abs 5.25 10e9/L Unknown COMPLETE BLOOD COUNT [id number] Lymphocyte Abs 2.22 10e9/L Unknown COMPLETE BLOOD COUNT [id number] Monocyte Abs 0.66 10e9/L 02/06 Unknown COMPLETE BLOOD COUNT [id number] Eosinophil Abs 0.25 10e9/L Unknown COMPLETE BLOOD COUNT [id number] RDW-SD 46.7 fL 7 Unknown COMPLETE BLOOD COUNT [id number] Basophil Abs 0.02 10e9/L 02/06 Unknown THYROID STIMULATING HORMONE 69354 TSH 2.330 uIU/mL 03/05/2017 Unknown LIPID GROUP 11017 Cholesterol 135 mg/dL 03/05/2017 Unkno wn LIPID GROUP 75198 Triglyceride 297 mg/dL 03/05/2017 Unkn own LIPID GROUP 61070 HDL CHOLESTEROL 34 mg/dL 03/05/2017 U nknown LIPID GROUP 51677 Chol/HDL Ratio 3.97 ratio 03/05/2017 U nknown LIPID GROUP 58352 NON-HDL Chol 101 mg/dL 03/05/2017 Unkn own LIPID GROUP 19967 LDL Cholesterol 42 mg/dL 03/05/2017 U nknown GLYCOSYLATED HEMOGLOBIN TEST 52964 Hgb A1c 14087-5 6.5 % 1 05/07/2015 Unknown GFR CALC 2639751 GFR Afr Amr >60 mL/min 03/06/2016 Unknow n GFR CALC 1752558 GFR Non Afr Amr 55 mL/min 03/06/2016 Unk nown COMPLETE BLOOD COUNT 4445842 WBC 8.5 10e9/L 03/06/20 16 Unknown COMPLETE BLOOD COUNT [id number] RBC 4.32 10e12/L 2015 Unknown COMPLETE BLOOD COUNT 1844816 HEMOGLOBIN 13.5 g/dL 03/06/20 16 Unknown COMPLETE BLOOD COUNT 2537220 HEMATOCRIT 41.3 % 03/06/20 16 Unknown COMPLETE BLOOD COUNT 2975603 MCV 95.6 fL 6 Unknown COMPLETE BLOOD COUNT 6624131 MCH 31.3 pg 6 Unknown COMPLETE BLOOD COUNT 3536140 MCHC 32.7 g/dL 6 Unknown COMPLETE BLOOD COUNT 9123449 PLATELET COUNT 191 10e9/L 04/2015 Unknown COMPLETE BLOOD COUNT 5107923 Mean Plt Volume 11.7 fL 04/2015 Unknown COMPLETE BLOOD COUNT 1834033 Neut Auto 64.2 % 6 Unknown COMPLETE BLOOD COUNT 0063121 Lymph Auto 25.9 % 03/06/20 16 Unknown COMPLETE BLOOD COUNT 6849608 [place] Auto 7.8 % 6 Unknown COMPLETE BLOOD COUNT 9562843 RDW 13.4 % 6 Unknown COMPLETE BLOOD COUNT 3865011 Eos Auto 2.0 % 6 Unknown COMPLETE BLOOD COUNT 3497377 Baso Auto 0.1 % 6 Unknown COMPLETE BLOOD COUNT 2837241 Neutrophil Abs 5.46 10e9/L Unknown COMPLETE BLOOD COUNT [id number] Lymphocyte Abs 2.20 10e9/L Unknown COMPLETE BLOOD COUNT [id number] Monocyte Abs 0.66 10e9/L 04/2015 Unknown COMPLETE BLOOD COUNT 3232125 Eosinophil Abs 0.17 10e9/L Unknown COMPLETE BLOOD COUNT 8597530 RDW-SD 45.0 fL 6 Unknown COMPLETE BLOOD COUNT [id number] Basophil Abs 0.01 10e9/L 04/2015 Unknown FREE T4 60965 T4 Free 1.34 ng/dL 03/06/2016 Unknown MEAN GLUC 2629482 Calc Mean Gluc 140 mg/dL 03/06/2016 Unkn own COMPREHENSIVE METABOLIC 07836 AST 15 U/L 2015 Unknown COMPREHENSIVE METABOLIC 43518 ALT 18 U/L 2015 Unknown COMPREHENSIVE METABOLIC 76430 BUN 21 mg/dL 2015 Unknown COMPREHENSIVE METABOLIC 69952 ALBUMIN 4.3 g/dL 2015 Unknown COMPREHENSIVE METABOLIC 35715 CHLORIDE 103 mmol/L 03/06 Unknown COMPREHENSIVE METABOLIC 49526 Bili Total 0.4 mg/dL 03/06 Unknown COMPREHENSIVE METABOLIC 44146 ALK PHOS 68 U/L 2015 Unknown COMPREHENSIVE METABOLIC 96132 SODIUM 140 mmol/L 03/06 Unknown COMPREHENSIVE METABOLIC 59256 CREATININE 1.31 mg/dL 04/2015 Unknown COMPREHENSIVE METABOLIC 87708 CALCIUM 9.4 mg/dL 2015 Unknown COMPREHENSIVE METABOLIC 19190 POTASSIUM 4.8 mmol/L 03/06 Unknown COMPREHENSIVE METABOLIC 90109 Total Protein 6.6 g/dL Unknown COMPREHENSIVE METABOLIC 89925 Glucose 142 mg/dL 2015 Unknown COMPREHENSIVE METABOLIC 58568 Bicarbonate 29 mmol/L 04/2015 Unknown COMPREHENSIVE METABOLIC 86260 AGAP 8 mmol/L 2015 Unknown THYROID STIMULATING HORMONE 94319 TSH 2.288 uIU/mL 03/06/2016 Unknown LIPID GROUP 79784 Cholesterol 154 mg/dL 03/06/2016 Unkno wn LIPID GROUP 74464 Triglyceride 266 mg/dL 03/06/2016 Unkn own LIPID GROUP 51285 HDL CHOLESTEROL 38 mg/dL 03/06/2016 U nknown LIPID GROUP 33070 Chol/HDL Ratio 4.05 ratio 03/06/2016 U nknown LIPID GROUP 49559 NON-HDL Chol 116 mg/dL 03/06/2016 Unkn own LIPID GROUP 50589 LDL Cholesterol 63 mg/dL 03/06/2016 U nknown MEAN GLUC 5666066 Mean Glucose 128 mg/dL 08/31/2015 Unknow n COMPLETE BLOOD COUNT 6732313 WBC 8.4 10e9/L 08/31/19 16 Unknown COMPLETE BLOOD COUNT [id number] RBC 4.12 10e12/L 2015 Unknown COMPLETE BLOOD COUNT 5510889 HEMOGLOBIN 12.8 g/dL 08/31/19 16 Unknown COMPLETE BLOOD COUNT 1167015 HEMATOCRIT 39.6 % 08/31/19 16 Unknown COMPLETE BLOOD COUNT 1773787 MCV 96.1 fL 6 Unknown COMPLETE BLOOD COUNT 2689984 MCH 31.1 pg 6 Unknown COMPLETE BLOOD COUNT 8211798 MCHC 32.3 g/dL 6 Unknown COMPLETE BLOOD COUNT 4255288 PLATELET COUNT 184 10e9/L Unknown COMPLETE BLOOD COUNT 7005176 Mean Plt Volume 12.0 fL Unknown COMPLETE BLOOD COUNT 2861924 Neut Auto 59.8 % 6 Unknown COMPLETE BLOOD COUNT 0726348 Lymph Auto 27.9 % 08/31/19 16 Unknown COMPLETE BLOOD COUNT 3927894 [place] Auto 9.1 % 6 Unknown COMPLETE BLOOD COUNT 6469446 Eos Auto 3.1 % 6 Unknown COMPLETE BLOOD COUNT 4312727 RDW 13.6 % 6 Unknown COMPLETE BLOOD COUNT 9666634 Baso Auto 0.1 % 6 Unknown COMPLETE BLOOD COUNT [id number] Neutrophil Abs 5.02 10e9/L Unknown COMPLETE BLOOD COUNT 0513203 Lymphoctye Abs 2.34 10e9/L Unknown COMPLETE BLOOD COUNT [id number] Monocyte Abs 0.76 10e9/L 08/05 Unknown COMPLETE BLOOD COUNT 7501109 Eosinophil Abs 0.26 10e9/L Unknown COMPLETE BLOOD COUNT 2166320 RDW-SD 46.3 fL 6 Unknown COMPLETE BLOOD COUNT [id number] Basophil Abs 0.01 10e9/L 08/05 Unknown GLYCOSYLATED HEMOGLOBIN TEST 86873 Hgb A1c 72992-4 6.1 % 0 08/31/2015 Unknown GFR CALC 9940983 GFR Afr Amr >60 mL/min 08/31/2015 Unknow n GFR CALC 0335051 GFR Non Afr Amr >60 mL/min 08/31/2015 Un known FREE T4 23823 T4 Free 1.21 ng/dL 08/31/2015 Unknown THYROID STIMULATING HORMONE 75469 TSH 2.988 uIU/mL 08/31/2015 Unknown COMPREHENSIVE METABOLIC 10313 AST 16 U/L 2015 Unknown COMPREHENSIVE METABOLIC 98994 ALT 19 U/L 2015 Unknown COMPREHENSIVE METABOLIC 06605 BUN 17 mg/dL 2015 Unknown COMPREHENSIVE METABOLIC 63169 ALBUMIN 4.3 g/dL 2015 Unknown COMPREHENSIVE METABOLIC 71854 CHLORIDE 107 mmol/L 08/30 Unknown COMPREHENSIVE METABOLIC 14848 Bili Total 0.4 mg/dL 08/30 Unknown COMPREHENSIVE METABOLIC 91157 ALK PHOS 66 U/L 2015 Unknown COMPREHENSIVE METABOLIC 03370 SODIUM 140 mmol/L 08/30 Unknown COMPREHENSIVE METABOLIC 28631 CREATININE 1.07 mg/dL 08/05 Unknown COMPREHENSIVE METABOLIC 10138 CALCIUM 9.5 mg/dL 2015 Unknown COMPREHENSIVE METABOLIC 62902 POTASSIUM 4.5 mmol/L 08/30 Unknown COMPREHENSIVE METABOLIC 80892 Total Protein 6.7 g/dL Unknown COMPREHENSIVE METABOLIC 90938 Glucose 122 mg/dL 2015 Unknown COMPREHENSIVE METABOLIC 00001 Bicarbonate 26 mmol/L 08/05 Unknown COMPREHENSIVE METABOLIC 69583 AGAP 7 mmol/L 2015 Unknown LIPID GROUP 93443 Cholesterol 171 mg/dL 08/31/2015 Unkno wn LIPID GROUP 62766 Triglyceride 428 mg/dL 08/31/2015 Unkn own LIPID GROUP 59847 HDL CHOLESTEROL 35 mg/dL 08/31/2015 U nknown LIPID GROUP 74915 Chol/HDL Ratio 4.89 ratio 08/31/2015 U nknown LIPID GROUP 79059 NON-HDL Chol 136 mg/dL 08/31/2015 Unkn own LIPID GROUP 40930 LDL Cholesterol 50 mg/dL 08/31/2015 U nknown PSA EQUIMOLAR JERSON 81904 PSA Total 0.47 ng/mL 6 Unknown GFR CALC 9059149 GFR AA >60 ML/MIN 01/12/2015 Unknown GFR CALC 0032815 GFR NON-AA >60 ML/MIN 01/12/2015 Unknown COMPREHENSIVE METABOLIC 26674 AST 18 U/L 2014 Unknown COMPREHENSIVE METABOLIC 22343 ALT 19 IU/L 2014 Unknown COMPREHENSIVE METABOLIC 38481 BUN 19 MG/DL 2014 Unknown COMPREHENSIVE METABOLIC 00090 ALBUMIN 4.7 GM/DL 2014 Unknown COMPREHENSIVE METABOLIC 20576 CHLORIDE 104 MMOL/L 01/12 Unknown COMPREHENSIVE METABOLIC 80619 BILI TOT 0.8 MG/DL 2014 Unknown COMPREHENSIVE METABOLIC 33316 ALK PHOS 58 U/L 2014 Unknown COMPREHENSIVE METABOLIC 08547 SODIUM 139 MMOL/L 01/12 Unknown COMPREHENSIVE METABOLIC 03530 CREATININE 1.09 MG/DL 12/2014 Unknown COMPREHENSIVE METABOLIC 76632 CALCIUM 9.6 MG/DL 2014 Unknown COMPREHENSIVE METABOLIC 83021 POTASSIUM 4.4 MMOL/L 01/12 Unknown COMPREHENSIVE METABOLIC 58809 PROT TOT 6.7 GM/DL 2014 Unknown COMPREHENSIVE METABOLIC 93692 Glucose 109 MG/DL 2014 Unknown COMPREHENSIVE METABOLIC 08034 BICARB 27 MMOL/L 2014 Unknown COMPREHENSIVE METABOLIC 81847 ANION GAP 8 MEQ/L 2014 Unknown LIPID GROUP 94138 HDL TEST 36 MG/DL 01/12/2015 Unknown LIPID GROUP 29132 TRIG 220 MG/DL 01/12/2015 Unknown LIPID GROUP 72046 TEST LDL 58 MG/DL 01/12/2015 Unknown LIPID GROUP 64649 CHOL 138 MG/DL 01/12/2015 Unknown LIPID GROUP 36153 RCHOL/HDL 3.83 RATIO 01/12/2015 Unknow n LIPID GROUP 92521 NON-HDL CH 102 MG/DL 01/12/2015 Unknow n GLYCOSYLATED HEMOGLOBIN TEST 67173 A1C HPLC 65668-4 6.1 % 1 Unknown COMPLETE BLOOD COUNT 7693969 WBC 7.1 10e9/L 01/13/20 15 Unknown COMPLETE BLOOD COUNT [id number] RBC 4.38 10e12/L 2014 Unknown COMPLETE BLOOD COUNT 5954065 HGB 13.7 g/dL 5 Unknown COMPLETE BLOOD COUNT 9070136 HCT DET 41.3 % 5 Unknown COMPLETE BLOOD COUNT 7960678 MCV 94.3 fL 5 Unknown COMPLETE BLOOD COUNT 9606788 MCH 31.3 pg 5 Unknown COMPLETE BLOOD COUNT 9681739 MCHC 33.2 g/dL 5 Unknown COMPLETE BLOOD COUNT 4458774 PLT 174 10e9/L 01/13/20 15 Unknown COMPLETE BLOOD COUNT 7155522 MPV 11.8 fL 5 Unknown COMPLETE BLOOD COUNT 6580389 SAMIR % 61.3 % 5 Unknown COMPLETE BLOOD COUNT 7607620 LY % 28.3 % 5 Unknown COMPLETE BLOOD COUNT 4078293 MON % 7.6 % 5 Unknown COMPLETE BLOOD COUNT 4791080 EOS % 2.7 % 5 Unknown COMPLETE BLOOD COUNT 1718137 BASO % 0.1 % 5 Unknown COMPLETE BLOOD COUNT 3304522 RDW 13.1 % 5 Unknown COMPLETE BLOOD COUNT 3145286 ABS SAMIR 4.35 10e9/L 015 Unknown COMPLETE BLOOD COUNT 4442283 ABS LYMPH 2.01 10e9/L 015 Unknown COMPLETE BLOOD COUNT 7470724 ABS MONO 0.54 10e9/L 015 Unknown COMPLETE BLOOD COUNT 7835411 ABS EOS 0.19 10e9/L 015 Unknown COMPLETE BLOOD COUNT 4312218 ABS BASO 0.01 10e9/L 015 Unknown COMPLETE BLOOD COUNT 1763022 RDW-SD 43.9 fL 5 Unknown GLYCOSYLATED HEMOGLOBIN TEST 05222 A1C [facility] 87580-3 6.1 % 0 08/15/2014 Unknown COMPLETE BLOOD COUNT 6838098 WBC 9.7 10e9/L 08/16/19 15 Unknown COMPLETE BLOOD COUNT 3627745 RBC 4.29 10e12/L 2014 Unknown COMPLETE BLOOD COUNT 1633263 HGB 13.3 g/dL 5 Unknown COMPLETE BLOOD COUNT 1293686 HCT DET 40.5 % 5 Unknown COMPLETE BLOOD COUNT 5777907 MCV 94.4 fL 5 Unknown COMPLETE BLOOD COUNT 0022179 MCH 31.0 pg 5 Unknown COMPLETE BLOOD COUNT 6432509 MCHC 32.8 g/dL 5 Unknown COMPLETE BLOOD COUNT 7749388 PLT 227 10e9/L 08/16/19 15 Unknown COMPLETE BLOOD COUNT 8760523 MPV 11.0 fL 5 Unknown COMPLETE BLOOD COUNT 9112418 SAMIR % 66.4 % 5 Unknown COMPLETE BLOOD COUNT 9587567 LY % 23.7 % 5 Unknown COMPLETE BLOOD COUNT 5687373 MON % 8.1 % 5 Unknown COMPLETE BLOOD COUNT 5296120 EOS % 1.6 % 05/12/201 5 Unknown COMPLETE BLOOD COUNT 6053635 BASO % 0.2 % 5 Unknown COMPLETE BLOOD COUNT 8305161 RDW 13.4 % 5 Unknown COMPLETE BLOOD COUNT 0378173 ABS SAMIR 6.44 10e9/L 015 Unknown COMPLETE BLOOD COUNT 7352826 ABS LYMPH 2.30 10e9/L 015 Unknown COMPLETE BLOOD COUNT 6582659 ABS MONO 0.79 10e9/L 015 Unknown COMPLETE BLOOD COUNT 9961462 ABS EOS 0.16 10e9/L 015 Unknown COMPLETE BLOOD COUNT 8105867 ABS BASO 0.02 10e9/L 015 Unknown COMPLETE BLOOD COUNT 3401647 RDW-SD 44.7 fL 5 Unknown COMPREHENSIVE METABOLIC 61709 AST 17 U/L 2014 Unknown COMPREHENSIVE METABOLIC 70215 ALT 23 IU/L 2014 Unknown COMPREHENSIVE METABOLIC 12565 BUN 16 MG/DL 2014 Unknown COMPREHENSIVE METABOLIC 67092 ALBUMIN 4.3 GM/DL 2014 Unknown COMPREHENSIVE METABOLIC 88544 CHLORIDE 107 MMOL/L 08/15 Unknown COMPREHENSIVE METABOLIC 79983 BILI TOT 0.4 MG/DL 2014 Unknown COMPREHENSIVE METABOLIC 89485 ALK PHOS 91 U/L 2014 Unknown COMPREHENSIVE METABOLIC 00302 SODIUM 139 MMOL/L 08/15 Unknown COMPREHENSIVE METABOLIC 71199 CREATININE 1.07 MG/DL 08/04 Unknown COMPREHENSIVE METABOLIC 40686 CALCIUM 9.6 MG/DL 2014 Unknown COMPREHENSIVE METABOLIC 21452 POTASSIUM 4.6 MMOL/L 08/15 Unknown COMPREHENSIVE METABOLIC 47952 PROT TOT 6.7 GM/DL 2014 Unknown COMPREHENSIVE METABOLIC 83689 Glucose 111 MG/DL 2014 Unknown COMPREHENSIVE METABOLIC 06706 BICARB 27 MMOL/L 2014 Unknown COMPREHENSIVE METABOLIC 58401 ANION GAP 5 MEQ/L 2014 Unknown GFR CALC 3265089 GFR AA >60 ML/MIN 08/15/2014 Unknown GFR CALC 3221614 GFR NON-AA >60 ML/MIN 08/15/2014 Unknown THYROID STIMULATING HORMONE 83556 TSH 1.598 uIU/ML 08/15/2014 Unknown LIPID GROUP 36177 HDL TEST 33 MG/DL 08/15/2014 Unknown LIPID GROUP 47436 TRIG 187 MG/DL 08/15/2014 Unknown LIPID GROUP 92042 TEST LDL 58 MG/DL 08/15/2014 Unknown LIPID GROUP 04811 CHOL 128 MG/DL 08/15/2014 Unknown LIPID GROUP 60468 RCHOL/HDL 3.88 RATIO 08/15/2014 Unknow n LIPID GROUP 37572 NON-HDL CH 95 MG/DL 08/15/2014 Unknow n PSA EQUIMOLAR JERSON 60328 PSA EQ 0.70 NG/ML 5 Unknown FREE T4 23171 FREE T4 1.32 NG/DL 08/15/2014 Unknown GFR CALC 1974421 GFR AA >60 ML/MIN 12/14/2013 Unknown GFR CALC 7209130 GFR NON-AA 58.0L ML/MIN 12/14/2013 Unkno wn COMPLETE BLOOD COUNT 5845781 WBC 8.7 10e9/L 12/15/19 14 Unknown COMPLETE BLOOD COUNT 5807420 RBC 4.32 10e12/L 2013 Unknown COMPLETE BLOOD COUNT 7627443 HGB 13.5 g/dL 4 Unknown COMPLETE BLOOD COUNT 9838518 HCT DET 40.6 % 4 Unknown COMPLETE BLOOD COUNT 1221052 MCV 94.0 fL 4 Unknown COMPLETE BLOOD COUNT 5637755 MCH 31.3 pg 4 Unknown COMPLETE BLOOD COUNT 3046812 MCHC 33.3 g/dL 4 Unknown COMPLETE BLOOD COUNT 6244411 PLT 205 10e9/L 12/15/19 14 Unknown COMPLETE BLOOD COUNT 2890830 MPV 11.7 fL 4 Unknown COMPLETE BLOOD COUNT 9257304 SAMIR % 62.5 % 4 Unknown COMPLETE BLOOD COUNT 7466358 LY % 26.9 % 4 Unknown COMPLETE BLOOD COUNT 5442544 MON % 8.8 % 4 Unknown COMPLETE BLOOD COUNT 0467244 EOS % 1.7 % 4 Unknown COMPLETE BLOOD COUNT 7617062 BASO % 0.1 % 4 Unknown COMPLETE BLOOD COUNT 6906440 RDW 13.4 % 4 Unknown COMPLETE BLOOD COUNT 8965825 ABS SAMIR 5.44 10e9/L 014 Unknown COMPLETE BLOOD COUNT [id number] ABS LYMPH 2.34 10e9/L 014 Unknown COMPLETE BLOOD COUNT [id number] ABS MONO 0.77 10e9/L 014 Unknown COMPLETE BLOOD COUNT [id number] ABS EOS 0.15 10e9/L 014 Unknown COMPLETE BLOOD COUNT [id number] ABS BASO 0.01 10e9/L 014 Unknown COMPLETE BLOOD COUNT [id number] RDW-SD 44.7 fL 4 Unknown COMPREHENSIVE METABOLIC 19721 AST 14 U/L 2013 Unknown COMPREHENSIVE METABOLIC 58937 ALT 12 IU/L 2013 Unknown COMPREHENSIVE METABOLIC 81439 BUN 24 MG/DL 2013 Unknown COMPREHENSIVE METABOLIC 66883 ALBUMIN 4.5 GM/DL 2013 Unknown COMPREHENSIVE METABOLIC 71583 CHLORIDE 104 MMOL/L 12/14 Unknown COMPREHENSIVE METABOLIC 19340 BILI TOT 0.6 MG/DL 2013 Unknown COMPREHENSIVE METABOLIC 65284 ALK PHOS 82 U/L 2013 Unknown COMPREHENSIVE METABOLIC 68571 SODIUM 135 MMOL/L 12/14 Unknown COMPREHENSIVE METABOLIC 20125 CREATININE 1.25 MG/DL 12/05 Unknown COMPREHENSIVE METABOLIC 36521 CALCIUM 9.8 MG/DL 2013 Unknown COMPREHENSIVE METABOLIC 31817 POTASSIUM 4.7 MMOL/L 12/14 Unknown COMPREHENSIVE METABOLIC 56700 PROT TOT 6.7 GM/DL 2013 Unknown COMPREHENSIVE METABOLIC 45085 Glucose 126 MG/DL 2013 Unknown COMPREHENSIVE METABOLIC 59613 BICARB 27 MMOL/L 2013 Unknown COMPREHENSIVE METABOLIC 31490 ANION GAP 4 MEQ/L 2013 Unknown THYROID STIMULATING HORMONE 15663 TSH 3.281 uIU/ML 12/14/2013 Unknown FREE T4 24634 FREE T4 1.28 NG/DL 12/14/2013 Unknown LIPID GROUP 71114 HDL TEST 36 MG/DL 12/14/2013 Unknown LIPID GROUP 86443 TRIG 253 MG/DL 12/14/2013 Unknown LIPID GROUP 84302 TEST LDL 56 MG/DL 12/14/2013 Unknown LIPID GROUP 16433 CHOL 143 MG/DL 12/14/2013 Unknown LIPID GROUP 89181 RCHOL/HDL 3.97 RATIO 12/14/2013 Unknow n LIPID GROUP 97642 NON-HDL CH 107 MG/DL 12/14/2013 Unknow n GLYCOSYLATED HEMOGLOBIN TEST 19304 A1C [facility] 91228-7 6.1 % 0 12/14/2013 Unknown GLYCOSYLATED HEMOGLOBIN TEST 06709 A1C HPLC 50375-1 6.0 % 0 06/08/2013 Unknown LIPID GROUP 41867 HDL TEST 39 MG/DL 06/08/2013 Unknown LIPID GROUP 57421 TRIG 166 MG/DL 06/08/2013 Unknown LIPID GROUP 62736 TEST LDL 86 MG/DL 06/08/2013 Unknown LIPID GROUP 35376 CHOL 158 MG/DL 06/08/2013 Unknown LIPID GROUP 96754 RCHOL/HDL 4.05 RATIO 06/08/2013 Unknow n COMPREHENSIVE METABOLIC 09085 AST 17 U/L 2013 Unknown COMPREHENSIVE METABOLIC 78821 ALT 25 IU/L 2013 Unknown COMPREHENSIVE METABOLIC 86013 BUN 18 MG/DL 2013 Unknown COMPREHENSIVE METABOLIC 66251 ALBUMIN 4.5 GM/DL 2013 Unknown COMPREHENSIVE METABOLIC 76034 CHLORIDE 103 MMOL/L 06/08 Unknown COMPREHENSIVE METABOLIC 49051 BILI TOT 0.4 MG/DL 2013 Unknown COMPREHENSIVE METABOLIC 11745 ALK PHOS 72 U/L 2013 Unknown COMPREHENSIVE METABOLIC 18990 SODIUM 137 MMOL/L 06/08 Unknown COMPREHENSIVE METABOLIC 94237 CREATININE 1.07 MG/DL 08/2013 Unknown COMPREHENSIVE METABOLIC 09854 CALCIUM 9.7 MG/DL 2013 Unknown COMPREHENSIVE METABOLIC 52009 POTASSIUM 4.7 MMOL/L 06/08 Unknown COMPREHENSIVE METABOLIC 21232 PROT TOT 6.6 GM/DL 2013 Unknown COMPREHENSIVE METABOLIC 05761 Glucose 130 MG/DL 2013 Unknown COMPREHENSIVE METABOLIC 61031 BICARB 25 MMOL/L 2013 Unknown COMPREHENSIVE METABOLIC 56708 ANION GAP 9 MEQ/L 2013 Unknown FREE T4 48330 FREE T4 1.29 NG/DL 06/08/2013 Unknown THYROID STIMULATING HORMONE 06564 TSH 2.445 uIU/ML 06/08/2013 Unknown GFR CALC 9520506 GFR AA >60 ML/MIN 06/08/2013 Unknown GFR CALC 8732898 GFR NON-AA >60 ML/MIN 06/08/2013 Unknown COMPLETE BLOOD COUNT 0616187 WBC 8.2 10e9/L 06/09/19 14 Unknown COMPLETE BLOOD COUNT [id number] RBC 4.63 10e12/L 2013 Unknown COMPLETE BLOOD COUNT 1232688 HGB 14.1 g/dL 4 Unknown COMPLETE BLOOD COUNT 5259837 HCT DET 42.6 % 4 Unknown COMPLETE BLOOD COUNT 8270581 MCV 92.0 fL 4 Unknown COMPLETE BLOOD COUNT 9116579 MCH 30.5 pg 4 Unknown COMPLETE BLOOD COUNT 1626110 MCHC 33.1 g/dL 4 Unknown COMPLETE BLOOD COUNT 9087075 PLT 222 10e9/L 06/09/19 14 Unknown COMPLETE BLOOD COUNT 7353168 MPV 10.8 fL 4 Unknown COMPLETE BLOOD COUNT 0313066 SAMIR % 60.8 % 4 Unknown COMPLETE BLOOD COUNT 8361642 LY % 29.2 % 4 Unknown COMPLETE BLOOD COUNT 0167410 MON % 7.6 % 4 Unknown COMPLETE BLOOD COUNT 8096034 EOS % 2.3 % 4 Unknown COMPLETE BLOOD COUNT 9453946 BASO % 0.1 % 4 Unknown COMPLETE BLOOD COUNT 2664216 RDW 13.7 % 4 Unknown COMPLETE BLOOD COUNT 6420210 ABS SAMIR 4.99 10e9/L 014 Unknown COMPLETE BLOOD COUNT 6056312 ABS LYMPH 2.39 10e9/L 014 Unknown COMPLETE BLOOD COUNT 9153466 ABS MONO 0.62 10e9/L 014 Unknown COMPLETE BLOOD COUNT [id number] ABS EOS 0.19 10e9/L 014 Unknown COMPLETE BLOOD COUNT [id number] ABS BASO 0.01 10e9/L 014 Unknown COMPLETE BLOOD COUNT 7872942 RDW-SD 45.2 fL 4 Unknown LIPID GROUP 79114 HDL TEST 40 MG/DL 11/11/2012 Unknown LIPID GROUP 64578 TRIG 153 MG/DL 11/11/2012 Unknown LIPID GROUP 11404 TEST LDL 71 MG/DL 11/11/2012 Unknown LIPID GROUP 88330 CHOL 142 MG/DL 11/11/2012 Unknown LIPID GROUP 92032 RCHOL/HDL 3.55 RATIO 11/11/2012 Unknow n GFR CALC 4608670 GFR AA >60 ML/MIN 11/11/2012 Unknown GFR CALC 6647666 GFR NON-AA 57.0L ML/MIN 11/11/2012 Unkno wn HEMOGLOBIN A1C (GLYCOSYLATED) 5434668 A1C HPLC 76847-5 5.9 % 11/11/2012 Unknown THYROID STIMULATING HORMONE 73083 TSH 2.439 uIU/ML 11/11/2012 Unknown COMPLETE BLOOD COUNT 1354328 WBC 8.5 10e9/L 11/12/19 13 Unknown COMPLETE BLOOD COUNT 5938102 RBC 4.42 10e12/L 2012 Unknown COMPLETE BLOOD COUNT 6774391 HGB 13.7 g/dL 3 Unknown COMPLETE BLOOD COUNT 2482255 HCT DET 41.3 % 3 Unknown COMPLETE BLOOD COUNT 7635754 MCV 93.4 fL 3 Unknown COMPLETE BLOOD COUNT 9991133 MCH 31.0 pg 3 Unknown COMPLETE BLOOD COUNT 6767509 MCHC 33.2 g/dL 3 Unknown COMPLETE BLOOD COUNT 5887730 PLT 220 10e9/L 11/12/19 13 Unknown COMPLETE BLOOD COUNT 4268717 MPV 10.8 fL 3 Unknown COMPLETE BLOOD COUNT 8716909 SAMIR % 60.4 % 3 Unknown COMPLETE BLOOD COUNT 0674654 LY % 28.7 % 3 Unknown COMPLETE BLOOD COUNT 2259293 MON % 8.0 % 3 Unknown COMPLETE BLOOD COUNT 7436320 EOS % 2.8 % 3 Unknown COMPLETE BLOOD COUNT 6217007 BASO % 0.1 % 3 Unknown COMPLETE BLOOD COUNT 4755549 RDW 13.7 % 3 Unknown COMPLETE BLOOD COUNT 9551075 ABS SAMIR 5.13 10e9/L 013 Unknown COMPLETE BLOOD COUNT [id number] ABS LYMPH 2.44 10e9/L 013 Unknown COMPLETE BLOOD COUNT 7994298 ABS MONO 0.68 10e9/L 013 Unknown COMPLETE BLOOD COUNT 4189971 ABS EOS 0.24 10e9/L 013 Unknown COMPLETE BLOOD COUNT 5989552 ABS BASO 0.01 10e9/L 013 Unknown COMPLETE BLOOD COUNT 4872213 RDW-SD 45.6 fL 3 Unknown COMPREHENSIVE METABOLIC 99858 AST 19 U/L 2012 Unknown COMPREHENSIVE METABOLIC 34516 ALT 28 IU/L 2012 Unknown COMPREHENSIVE METABOLIC 51599 BUN 31 MG/DL 2012 Unknown COMPREHENSIVE METABOLIC 45447 ALBUMIN 4.7 GM/DL 2012 Unknown COMPREHENSIVE METABOLIC 57250 CHLORIDE 106 MMOL/L 11/11 Unknown COMPREHENSIVE METABOLIC 94282 BILI TOT 0.5 MG/DL 2012 Unknown COMPREHENSIVE METABOLIC 31219 ALK PHOS 64 U/L 2012 Unknown COMPREHENSIVE METABOLIC 89221 SODIUM 136 MMOL/L 11/11 Unknown COMPREHENSIVE METABOLIC 39171 CREATININE 1.27 MG/DL 11/2012 Unknown COMPREHENSIVE METABOLIC 97184 CALCIUM 9.4 MG/DL 2012 Unknown COMPREHENSIVE METABOLIC 06610 POTASSIUM 4.9 MMOL/L 11/11 Unknown COMPREHENSIVE METABOLIC 32327 PROT TOT 6.7 GM/DL 2012 Unknown COMPREHENSIVE METABOLIC 21979 Glucose 108 MG/DL 2012 Unknown COMPREHENSIVE METABOLIC 62369 BICARB 21 MMOL/L 2012 Unknown COMPREHENSIVE METABOLIC 11034 ANION GAP 9 MEQ/L 2012 Unknown THYROID STIMULATING HORMONE 63541 TSH 2.572 uIU/ML 05/04/2012 Unknown COMPLETE BLOOD COUNT [id number] WBC 9.3 10e9/L 05/04/19 13 Unknown COMPLETE BLOOD COUNT [id number] RBC 4.43 10e12/L 2012 Unknown COMPLETE BLOOD COUNT 1396176 HGB 14.2 g/dL 3 Unknown COMPLETE BLOOD COUNT 6679599 HCT DET 41.1 % 3 Unknown COMPLETE BLOOD COUNT 0595710 MCV 92.8 fL 3 Unknown COMPLETE BLOOD COUNT 4254359 MCH 32.1 pg 3 Unknown COMPLETE BLOOD COUNT 6931564 MCHC 34.5 g/dL 3 Unknown COMPLETE BLOOD COUNT 2537746 PLT 193 10e9/L 05/04/19 13 Unknown COMPLETE BLOOD COUNT 9815375 MPV 10.8 fL 3 Unknown COMPLETE BLOOD COUNT 1883759 SAMIR % 63.0 % 3 Unknown COMPLETE BLOOD COUNT 8073959 LY % 25.3 % 3 Unknown COMPLETE BLOOD COUNT 8340685 MON % 9.1 % 3 Unknown COMPLETE BLOOD COUNT 9733729 EOS % 2.5 % 3 Unknown COMPLETE BLOOD COUNT 1059440 BASO % 0.1 % 3 Unknown COMPLETE BLOOD COUNT 4735989 RDW 12.6 % 3 Unknown COMPLETE BLOOD COUNT 5174921 ABS SAMIR 5.86 10e9/L 013 Unknown COMPLETE BLOOD COUNT 8775230 ABS LYMPH 2.35 10e9/L 013 Unknown COMPLETE BLOOD COUNT 2047551 ABS MONO 0.85 10e9/L 013 Unknown COMPLETE BLOOD COUNT 3135882 ABS EOS 0.23 10e9/L 013 Unknown COMPLETE BLOOD COUNT 6224260 ABS BASO 0.01 10e9/L 013 Unknown COMPLETE BLOOD COUNT 6564594 RDW-SD 41.2 fL 3 Unknown LIPID GROUP 97679 HDL TEST 35 MG/DL 05/04/2012 Unknown LIPID GROUP 65521 TRIG 236 MG/DL 05/04/2012 Unknown LIPID GROUP 88920 TEST LDL 64 MG/DL 05/04/2012 Unknown LIPID GROUP 54192 CHOL 146 MG/DL 05/04/2012 Unknown LIPID GROUP 49321 RCHOL/HDL 4.17 RATIO 05/04/2012 Unknow n COMPREHENSIVE METABOLIC 37747 AST 23 U/L 2012 Unknown COMPREHENSIVE METABOLIC 09614 ALT 33 IU/L 2012 Unknown COMPREHENSIVE METABOLIC 15051 BUN 16 MG/DL 2012 Unknown COMPREHENSIVE METABOLIC 36199 ALBUMIN 4.8 GM/DL 2012 Unknown COMPREHENSIVE METABOLIC 29636 CHLORIDE 104 MMOL/L 05/04 Unknown COMPREHENSIVE METABOLIC 21418 BILI TOT 0.5 MG/DL 2012 Unknown COMPREHENSIVE METABOLIC 98562 ALK PHOS 70 U/L 2012 Unknown COMPREHENSIVE METABOLIC 06109 SODIUM 138 MMOL/L 05/04 Unknown COMPREHENSIVE METABOLIC 81604 CREATININE 1.08 MG/DL 04/07 Unknown COMPREHENSIVE METABOLIC 47071 CALCIUM 9.7 MG/DL 2012 Unknown COMPREHENSIVE METABOLIC 21004 POTASSIUM 4.4 MMOL/L 05/04 Unknown COMPREHENSIVE METABOLIC 07136 PROT TOT 6.8 GM/DL 2012 Unknown COMPREHENSIVE METABOLIC 51992 Glucose 114 MG/DL 2012 Unknown COMPREHENSIVE METABOLIC 62384 BICARB 27 MMOL/L 2012 Unknown COMPREHENSIVE METABOLIC 91932 ANION GAP 7 MEQ/L 2012 Unknown FREE T4 67648 FREE T4 1.11 NG/DL 05/04/2012 Unknown GFR CALC 4691770 GFR AA >60 ML/MIN 05/04/2012 Unknown GFR CALC 4121241 GFR NON-AA >60 ML/MIN 05/04/2012 Unknown GLYCOSYLATED HEMOGLOBIN TEST 94653 A1C HPLC 95701-1 5.8 % 0 10/29/2011 Unknown COMPREHENSIVE METABOLIC 46641 AST 17 U/L 2011 Unknown COMPREHENSIVE METABOLIC 45911 ALT 21 IU/L 2011 Unknown COMPREHENSIVE METABOLIC 17089 BUN 17 MG/DL 2011 Unknown COMPREHENSIVE METABOLIC 68474 ALBUMIN 4.8 GM/DL 2011 Unknown COMPREHENSIVE METABOLIC 89020 CHLORIDE 106 MMOL/L 10/28 Unknown COMPREHENSIVE METABOLIC 50170 BILI TOT 0.6 MG/DL 2011 Unknown COMPREHENSIVE METABOLIC 38621 ALK PHOS 57 U/L 2011 Unknown COMPREHENSIVE METABOLIC 06944 SODIUM 139 MMOL/L 10/28 Unknown COMPREHENSIVE METABOLIC 56588 CREATININE 1.08 MG/DL 10/05 Unknown COMPREHENSIVE METABOLIC 52126 CALCIUM 9.6 MG/DL 2011 Unknown COMPREHENSIVE METABOLIC 44187 POTASSIUM 4.4 MMOL/L 10/28 Unknown COMPREHENSIVE METABOLIC 46068 PROT TOT 6.9 GM/DL 2011 Unknown COMPREHENSIVE METABOLIC 86306 Glucose 104 MG/DL 2011 Unknown COMPREHENSIVE METABOLIC 89075 BICARB 25 MMOL/L 2011 Unknown COMPREHENSIVE METABOLIC 01778 ANION GAP 8 MEQ/L 2011 Unknown LIPID GROUP 25599 HDL TEST 39 MG/DL 10/29/2011 Unknown LIPID GROUP 16310 TRIG 176 MG/DL 10/29/2011 Unknown LIPID GROUP 75110 TEST LDL 70 MG/DL 10/29/2011 Unknown LIPID GROUP 05173 CHOL 144 MG/DL 10/29/2011 Unknown LIPID GROUP 39654 RCHOL/HDL 3.69 RATIO 10/29/2011 Unknow n GFR CALC 3946479 GFR AA >60 ML/MIN 10/29/2011 Unknown GFR CALC 9160700 GFR NON-AA >60 ML/MIN 10/29/2011 Unknown GFR CALC 0829996 GFR AA >60 ML/MIN 03/14/2011 Unknown GFR CALC 2298122 GFR NON-AA >60 ML/MIN 03/14/2011 Unknown GLYCOSYLATED HEMOGLOBIN TEST 50487 A1C HPLC 06144-3 5.7 % 1 05/15/2010 Unknown COMPREHENSIVE METABOLIC 17582 AST 18 U/L 2010 Unknown COMPREHENSIVE METABOLIC 45988 ALT 25 IU/L 2010 Unknown COMPREHENSIVE METABOLIC 78391 BUN 15 MG/DL 2010 Unknown COMPREHENSIVE METABOLIC 87038 ALBUMIN 4.6 GM/DL 2010 Unknown COMPREHENSIVE METABOLIC 76756 CHLORIDE 107 MMOL/L 03/14 Unknown COMPREHENSIVE METABOLIC 75073 BILI TOT 0.6 MG/DL 2010 Unknown COMPREHENSIVE METABOLIC 76210 ALK PHOS 54 U/L 2010 Unknown COMPREHENSIVE METABOLIC 61960 SODIUM 140 MMOL/L 03/14 Unknown COMPREHENSIVE METABOLIC 01342 CREATININE 1.02 MG/DL 12/2010 Unknown COMPREHENSIVE METABOLIC 06328 CALCIUM 9.4 MG/DL 2010 Unknown COMPREHENSIVE METABOLIC 50894 POTASSIUM 4.6 MMOL/L 03/14 Unknown COMPREHENSIVE METABOLIC 53217 PROT TOT 7.0 GM/DL 2010 Unknown COMPREHENSIVE METABOLIC 76914 Glucose 107 MG/DL 2010 Unknown COMPREHENSIVE METABOLIC 13096 BICARB 28 MMOL/L 2010 Unknown COMPREHENSIVE METABOLIC 25492 ANION GAP 5 MEQ/L 2010 Unknown LIPID GROUP 82918 HDL TEST 39 MG/DL 03/14/2011 Unknown LIPID GROUP 29932 TRIG 157 MG/DL 03/14/2011 Unknown LIPID GROUP 61905 TEST LDL 66 MG/DL 03/14/2011 Unknown LIPID GROUP 71769 CHOL 136 MG/DL 03/14/2011 Unknown LIPID GROUP 34157 RCHOL/HDL 3.49 RATIO 03/14/2011 Unknow n GFR CALC 7538581 GFR AA >60 ML/MIN 11/11/2010 Unknown GFR CALC 7714965 GFR NON-AA >60 ML/MIN 11/11/2010 Unknown LIPID GROUP 43255 HDL TEST 39 MG/DL 11/11/2010 Unknown LIPID GROUP 49912 TRIG 212 MG/DL 11/11/2010 Unknown LIPID GROUP 27577 TEST LDL 67 MG/DL 11/11/2010 Unknown LIPID GROUP 42740 CHOL 148 MG/DL 11/11/2010 Unknown LIPID GROUP 36181 RCHOL/HDL 3.79 RATIO 11/11/2010 Unknow n COMPREHENSIVE METABOLIC 34455 AST 17 U/L 2010 Unknown COMPREHENSIVE METABOLIC 57936 ALT 21 IU/L 2010 Unknown COMPREHENSIVE METABOLIC 26549 BUN 16 MG/DL 2010 Unknown COMPREHENSIVE METABOLIC 69617 ALBUMIN 4.6 GM/DL 2010 Unknown COMPREHENSIVE METABOLIC 07353 CHLORIDE 106 MMOL/L 11/11 Unknown COMPREHENSIVE METABOLIC 38673 BILI TOT 0.5 MG/DL 2010 Unknown COMPREHENSIVE METABOLIC 53881 ALK PHOS 61 U/L 2010 Unknown COMPREHENSIVE METABOLIC 94487 SODIUM 139 MMOL/L 11/11 Unknown COMPREHENSIVE METABOLIC 12386 CREATININE 1.00 MG/DL 11/2010 Unknown COMPREHENSIVE METABOLIC 20310 CALCIUM 9.5 MG/DL 2010 Unknown COMPREHENSIVE METABOLIC 67549 POTASSIUM 4.5 MMOL/L 11/11 Unknown COMPREHENSIVE METABOLIC 94573 PROT TOT 6.9 GM/DL 2010 Unknown COMPREHENSIVE METABOLIC 00802 Glucose 111 MG/DL 2010 Unknown COMPREHENSIVE METABOLIC 71685 BICARB 26 MMOL/L 2010 Unknown COMPREHENSIVE METABOLIC 07434 ANION GAP 7 MEQ/L 2010 Unknown HEMOGLOBIN A1C (GLYCOSYLATED) 98335 A1C HPLC 01086-0 5.6 % 07/24/2010 Unknown GFR CALC 7142410 GFR AA >60 ML/MIN 07/23/2010 Unknown GFR CALC 5097826 GFR NON-AA >60 ML/MIN 07/23/2010 Unknown COMPREHENSIVE METABOLIC 78786 AST 19 U/L 2010 Unknown COMPREHENSIVE METABOLIC 47331 ALT 33 IU/L 2010 Unknown COMPREHENSIVE METABOLIC 48305 BUN 14 MG/DL 2010 Unknown COMPREHENSIVE METABOLIC 48069 ALBUMIN 4.7 GM/DL 2010 Unknown COMPREHENSIVE METABOLIC 86422 CHLORIDE 107 MMOL/L 07/23 Unknown COMPREHENSIVE METABOLIC 52483 BILI TOT 0.4 MG/DL 2010 Unknown COMPREHENSIVE METABOLIC 74233 ALK PHOS 80 U/L 2010 Unknown COMPREHENSIVE METABOLIC 69993 SODIUM 141 MMOL/L 07/23 Unknown COMPREHENSIVE METABOLIC 70871 CREATININE 0.97 MG/DL 07/05 Unknown COMPREHENSIVE METABOLIC 87645 CALCIUM 9.5 MG/DL 2010 Unknown COMPREHENSIVE METABOLIC 05937 POTASSIUM 4.1 MMOL/L 07/23 Unknown COMPREHENSIVE METABOLIC 83730 PROT TOT 6.8 GM/DL 2010 Unknown COMPREHENSIVE METABOLIC 03171 Glucose 120 MG/DL 2010 Unknown COMPREHENSIVE METABOLIC 62453 BICARB 26 MMOL/L 2010 Unknown COMPREHENSIVE METABOLIC 00120 ANION GAP 8 MEQ/L 2010 Unknown LIPID GROUP 21710 HDL TEST 41 MG/DL 07/23/2010 Unknown LIPID GROUP 19455 TRIG 175 MG/DL 07/23/2010 Unknown LIPID GROUP 92645 TEST LDL 72 MG/DL 07/23/2010 Unknown LIPID GROUP 87993 CHOL 148 MG/DL 07/23/2010 Unknown LIPID GROUP 94396 RCHOL/HDL 3.61 RATIO 07/23/2010 Unknow n PSA FREE AND TOTAL 44344|83825 % FREE PSA FOOTNOTE % 011 Unknown PSA FREE AND TOTAL 17536|85962 XPSA TOTAL 0.83 NG/ML 011 Unknown PSA FREE AND TOTAL 89330|93265 XPSA FREE 0.13 NG/ML 04/26/19 11 Unknown VITAMIN D TOTAL (25 HYDROXY) 66994 VIT D TOTL 26 NG/ML 04/22/2010 Unknown TESTOSTERONE TOTAL 89892 TESTOS TO 387 NG/DL 04/19/2010 Unknown GFR CALC 7561893 GFR AA >60 ML/MIN 04/19/2010 Unknown GFR CALC 3741766 GFR NON-AA >60 ML/MIN 04/19/2010 Unknown COMPLETE BLOOD COUNT 24591 WBC 7.0 10e9/L 04/19/19 11 Unknown COMPLETE BLOOD COUNT 44653 RBC 5.07 10e12/L 2010 Unknown COMPLETE BLOOD COUNT 87097 HGB 15.6 g/dL 1 Unknown COMPLETE BLOOD COUNT 05762 HCT DET 46.2 % 1 Unknown COMPLETE BLOOD COUNT 95758 MCV 91.1 fL 1 Unknown COMPLETE BLOOD COUNT 37132 MCH 30.8 pg 1 Unknown COMPLETE BLOOD COUNT 71768 MCHC 33.8 g/dL 1 Unknown COMPLETE BLOOD COUNT 01708 PLT 205 10e9/L 04/19/19 11 Unknown COMPLETE BLOOD COUNT 79416 MPV 11.1 fL 1 Unknown COMPLETE BLOOD COUNT 19255 SAMIR % 62.4 % 1 Unknown COMPLETE BLOOD COUNT 43859 LY % 28.5 % 1 Unknown COMPLETE BLOOD COUNT 04079 MON % 6.9 % 1 Unknown COMPLETE BLOOD COUNT 02041 EOS % 2.1 % 1 Unknown COMPLETE BLOOD COUNT 47410 BASO % 0.1 % 1 Unknown COMPLETE BLOOD COUNT 98052 RDW 13.4 % 1 Unknown COMPLETE BLOOD COUNT 13064 ABS SAMIR 4.37 10e9/L 011 Unknown COMPLETE BLOOD COUNT 11559 ABS LYMPH 2.00 10e9/L 011 Unknown COMPLETE BLOOD COUNT 34276 ABS MONO 0.48 10e9/L 011 Unknown COMPLETE BLOOD COUNT 89814 ABS EOS 0.15 10e9/L 011 Unknown COMPLETE BLOOD COUNT 79701 ABS BASO 0.01 10e9/L 011 Unknown COMPLETE BLOOD COUNT 31376 RDW-SD 43.8 fL 1 Unknown LIPID GROUP 88022 HDL TEST 39 MG/DL 04/19/2010 Unknown LIPID GROUP 96804 TRIG 244 MG/DL 04/19/2010 Unknown LIPID GROUP 40424 TEST LDL 168 MG/DL 04/19/2010 Unknown LIPID GROUP 16793 CHOL 256 MG/DL 04/19/2010 Unknown LIPID GROUP 20278 RCHOL/HDL 6.56 RATIO 04/19/2010 Unknow n COMPREHENSIVE METABOLIC 14493 AST 28 U/L 2010 Unknown COMPREHENSIVE METABOLIC 19950 ALT 46 IU/L 2010 Unknown COMPREHENSIVE METABOLIC 11675 BUN 14 MG/DL 2010 Unknown COMPREHENSIVE METABOLIC 93665 ALBUMIN 4.9 GM/DL 2010 Unknown COMPREHENSIVE METABOLIC 74251 CHLORIDE 104 MMOL/L 04/19 Unknown COMPREHENSIVE METABOLIC 90926 BILI TOT 0.8 MG/DL 2010 Unknown COMPREHENSIVE METABOLIC 70964 ALK PHOS 71 U/L 2010 Unknown COMPREHENSIVE METABOLIC 52539 SODIUM 139 MMOL/L 04/19 Unknown COMPREHENSIVE METABOLIC 88288 CREATININE 1.06 MG/DL 04/06 Unknown COMPREHENSIVE METABOLIC 18718 CALCIUM 9.9 MG/DL 2010 Unknown COMPREHENSIVE METABOLIC 46646 POTASSIUM 4.3 MMOL/L 04/19 Unknown COMPREHENSIVE METABOLIC 80992 PROT TOT 7.2 GM/DL 2010 Unknown COMPREHENSIVE METABOLIC 87546 Glucose 99 MG/DL 2010 Unknown COMPREHENSIVE METABOLIC 07708 BICARB 28 MMOL/L 2010 Unknown COMPREHENSIVE METABOLIC 15703 ANION GAP 7 MEQ/L 2010 Unknown FREE T4 24752 FREE T4 1.26 NG/DL 04/19/2010 Unknown Procedures Procedure Codes Date FLU VACC PRSV FREE INC ANTIG 65 AND OLDER CPT-4: 64007 01/26/2019 FLU VACC PRSV FREE INC ANTIG 65 AND OLDER CPT-4: 82500 01/26/2019 ADMIN INFLUENZA VIRUS VAC CPT-4: G0008 01/26/2019 ROUTINE VENIPUNCTURE CPT-4: 68134 01/26/2019 COMPREHEN METABOLIC PANEL CPT-4: 07152 01/26/2019 COMPLETE CBC W/AUTO DIFF WBC CPT-4: 45413 01/26/2019 LIPID PANEL CPT-4: 03198 01/26/2019 A1C HPLC CPT-4: 51512 01/26/2019 ROUTINE VENIPUNCTURE CPT-4: 87263 09/30/2018 METABOLIC PANEL TOTAL CA CPT-4: 25237 09/30/2018 URINALYSIS NONAUTO W/O SCOPE CPT-4: 05510 08/19/2018 URINE CULTURE/ COLONY COUNT CPT-4: 66654 08/19/2018 MICROALBUMIN QUANTITATIVE CPT-4: 97312 08/19/2018 ROUTINE VENIPUNCTURE CPT-4: 59535 08/16/2018 ASSAY THYROID STIM HORMONE CPT-4: 81935 08/16/2018 COMPREHEN METABOLIC PANEL CPT-4: 37244 08/16/2018 COMPLETE CBC W/AUTO DIFF WBC CPT-4: 95160 08/16/2018 LIPID PANEL CPT-4: 35592 08/16/2018 A1C HPLC CPT-4: 10399 08/16/2018 LIPID PANEL CPT-4: 51393 05/05/2018 COMPREHEN METABOLIC PANEL CPT-4: 79775 05/05/2018 ROUTINE VENIPUNCTURE CPT-4: 14253 05/05/2018 A1C HPLC CPT-4: 97043 05/05/2018 COMPLETE CBC W/AUTO DIFF WBC CPT-4: 67328 05/05/2018 ASSAY THYROID STIM HORMONE CPT-4: 22989 05/05/2018 MICROALBUMIN QUANTITATIVE CPT-4: 22725 01/19/2018 PRESCRIP TRANSMIT VIA ERX SY CPT-4: G8553 01/19/2018 ROUTINE VENIPUNCTURE CPT-4: 58251 01/13/2018 COMPREHEN METABOLIC PANEL CPT-4: 09340 01/13/2018 A1C HPLC CPT-4: 68933 01/13/2018 LIPID PANEL CPT-4: 28616 01/13/2018 ASSAY OF PSA TOTAL CPT-4: 55391 01/13/2018 ASSAY THYROID STIM HORMONE CPT-4: 05139 01/13/2018 ROUTINE VENIPUNCTURE CPT-4: 96490 10/06/2017 COMPREHEN METABOLIC PANEL CPT-4: 31231 10/06/2017 COMPLETE CBC W/AUTO DIFF WBC CPT-4: 40655 10/06/2017 LIPID PANEL CPT-4: 48252 10/06/2017 A1C HPLC CPT-4: 78702 10/06/2017 VITAMIN B-12 CPT-4: 09024 10/06/2017 DESTRUCT PREMALG LESION (Cryosurgery) CPT-4: 96880 DESTRUCT PREMALG LES 2-14 CPT-4: 36387 04/23/2017 PRESCRIP TRANSMIT VIA ERX SY CPT-4: G8553 03/11/2017 ROUTINE VENIPUNCTURE CPT-4: 61659 03/05/2017 ASSAY OF FREE THYROXINE CPT-4: 60582 03/05/2017 ASSAY THYROID STIM HORMONE CPT-4: 52638 03/05/2017 COMPREHEN METABOLIC PANEL CPT-4: 16419 03/05/2017 COMPLETE CBC W/AUTO DIFF WBC CPT-4: 01859 03/05/2017 LIPID PANEL CPT-4: 31485 03/05/2017 A1C HPLC CPT-4: 60843 03/05/2017 ROUTINE VENIPUNCTURE CPT-4: 30233 06/16/2016 ASSAY OF FREE THYROXINE CPT-4: 89834 06/16/2016 ASSAY THYROID STIM HORMONE CPT-4: 33862 06/16/2016 COMPREHEN METABOLIC PANEL CPT-4: 40424 06/16/2016 COMPLETE CBC W/AUTO DIFF WBC CPT-4: 09998 06/16/2016 LIPID PANEL CPT-4: 68588 06/16/2016 A1C HPLC CPT-4: 25918 06/16/2016 ROUTINE VENIPUNCTURE CPT-4: 84484 03/06/2016 ASSAY OF FREE THYROXINE CPT-4: 36954 03/06/2016 ASSAY THYROID STIM HORMONE CPT-4: 61271 03/06/2016 COMPREHEN METABOLIC PANEL CPT-4: 88750 03/06/2016 COMPLETE CBC W/AUTO DIFF WBC CPT-4: 18088 03/06/2016 LIPID PANEL CPT-4: 46123 03/06/2016 A1C HPLC CPT-4: 59841 03/06/2016 PRESCRIP TRANSMIT VIA ERX SY CPT-4: G8553 09/10/2015 PNEUMOCOCCAL VACC 23 ROSANNE IM CPT-4: 37246 09/06/2015 ADMIN PNEUMOCOCCAL VACCINE CPT-4: G0009 09/06/2015 ROUTINE VENIPUNCTURE CPT-4: 49303 08/31/2015 COMPREHEN METABOLIC PANEL CPT-4: 82345 08/31/2015 COMPLETE CBC W/AUTO DIFF WBC CPT-4: 52801 08/31/2015 LIPID PANEL CPT-4: 97349 08/31/2015 ASSAY OF PSA TOTAL CPT-4: 03563 08/31/2015 A1C HPLC CPT-4: 60467 08/31/2015 ASSAY OF FREE THYROXINE CPT-4: 15790 08/31/2015 ASSAY THYROID STIM HORMONE CPT-4: 05989 08/31/2015 PRESCRIP TRANSMIT VIA ERX SY CPT-4: G8553 06/29/2015 FLU VACC PRSV FREE INC ANTIG 65 AND OLDER CPT-4: 63236 01/17/2015 PNEUMOCOCCAL VACC 13 ROSANNE IM CPT-4: 66811 01/17/2015 ADMIN INFLUENZA VIRUS VAC CPT-4: G0008 01/17/2015 ADMIN PNEUMOCOCCAL VACCINE CPT-4: G0009 01/17/2015 DESTRUCT PREMALG LESION (Cryosurgery) CPT-4: 47821 PRESCRIP TRANSMIT VIA ERX SY CPT-4: G8553 01/17/2015 ROUTINE VENIPUNCTURE CPT-4: 26506 01/12/2015 COMPREHEN METABOLIC PANEL CPT-4: 16012 01/12/2015 COMPLETE CBC W/AUTO DIFF WBC CPT-4: 98903 01/12/2015 LIPID PANEL CPT-4: 23552 01/12/2015 A1C HPLC CPT-4: 65035 01/12/2015 DESTRUCT PREMALG LESION (Cryosurgery) CPT-4: 90289 ROUTINE VENIPUNCTURE CPT-4: 74890 08/15/2014 COMPREHEN METABOLIC PANEL CPT-4: 27710 08/15/2014 COMPLETE CBC W/AUTO DIFF WBC CPT-4: 59480 08/15/2014 LIPID PANEL CPT-4: 66127 08/15/2014 A1C HPLC CPT-4: 84663 08/15/2014 ASSAY OF PSA TOTAL CPT-4: 95271 08/15/2014 ASSAY OF FREE THYROXINE CPT-4: 74048 08/15/2014 ASSAY THYROID STIM HORMONE CPT-4: 54507 08/15/2014 ROUTINE VENIPUNCTURE CPT-4: 06966 12/14/2013 ASSAY OF FREE THYROXINE CPT-4: 85056 12/14/2013 ASSAY THYROID STIM HORMONE CPT-4: 50572 12/14/2013 COMPREHEN METABOLIC PANEL CPT-4: 90117 12/14/2013 COMPLETE CBC W/AUTO DIFF WBC CPT-4: 87819 12/14/2013 LIPID PANEL CPT-4: 29511 12/14/2013 A1C HPLC CPT-4: 18722 12/14/2013 ROUTINE VENIPUNCTURE CPT-4: 63101 06/08/2013 ASSAY OF FREE THYROXINE CPT-4: 67095 06/08/2013 ASSAY THYROID STIM HORMONE CPT-4: 94797 06/08/2013 COMPREHEN METABOLIC PANEL CPT-4: 54343 06/08/2013 COMPLETE CBC W/AUTO DIFF WBC CPT-4: 68396 06/08/2013 LIPID PANEL CPT-4: 06752 06/08/2013 A1C HPLC CPT-4: 99184 06/08/2013 ROUTINE VENIPUNCTURE CPT-4: 41789 11/11/2012 COMPREHEN METABOLIC PANEL CPT-4: 28533 11/11/2012 COMPLETE CBC W/AUTO DIFF WBC CPT-4: 35913 11/11/2012 LIPID PANEL CPT-4: 66752 11/11/2012 A1C GLYCOSYLATED HEMOGLOBIN TEST CPT-4: 40590 013 ASSAY THYROID STIM HORMONE CPT-4: 34215 11/11/2012 ROUTINE VENIPUNCTURE CPT-4: 66857 05/04/2012 ASSAY OF FREE THYROXINE CPT-4: 50572 05/04/2012 ASSAY THYROID STIM HORMONE CPT-4: 72554 05/04/2012 COMPREHEN METABOLIC PANEL CPT-4: 63143 05/04/2012 COMPLETE CBC W/AUTO DIFF WBC CPT-4: 64928 05/04/2012 LIPID PANEL CPT-4: 73657 05/04/2012 DESTRUCT PREMALG LESION (Cryosurgery) CPT-4: 87976 DESTRUCT PREMALG LES 2-14 CPT-4: 20402 03/02/2012 ROUTINE VENIPUNCTURE CPT-4: 92799 10/29/2011 COMPREHEN METABOLIC PANEL CPT-4: 49449 10/29/2011 LIPID PANEL CPT-4: 32194 10/29/2011 A1C GLYCOSYLATED HEMOGLOBIN TEST CPT-4: 90166 012 ROUTINE VENIPUNCTURE CPT-4: 38110 07/29/2011 COMPREHEN METABOLIC PANEL CPT-4: 09717 07/29/2011 LIPID PANEL CPT-4: 65763 07/29/2011 A1C GLYCOSYLATED HEMOGLOBIN TEST CPT-4: 96428 012 ROUTINE VENIPUNCTURE CPT-4: 23715 03/14/2011 COMPREHEN METABOLIC PANEL CPT-4: 01813 03/14/2011 LIPID PANEL CPT-4: 58830 03/14/2011 A1C GLYCOSYLATED HEMOGLOBIN TEST CPT-4: 01141 011 ROUTINE VENIPUNCTURE CPT-4: 15426 11/11/2010 COMPREHEN METABOLIC PANEL CPT-4: 73570 11/11/2010 LIPID PANEL CPT-4: 90463 11/11/2010 URINE CULTURE/ COLONY COUNT CPT-4: 17825 11/11/2010 URINALYSIS NONAUTO W/O SCOPE CPT-4: 14446 10/29/2010 URINE CULTURE/ COLONY COUNT CPT-4: 45824 10/29/2010 LIPID PANEL CPT-4: 97765 07/23/2010 COMPREHEN METABOLIC PANEL CPT-4: 49279 07/23/2010 ROUTINE VENIPUNCTURE CPT-4: 30566 07/23/2010 ROUTINE VENIPUNCTURE CPT-4: 63553 04/26/2010 PSA FREE AND TOTAL CPT-4: 03347|51237 04/26/2010 OCCULT BLOOD FECES CPT-4: 31974 04/24/2010 ROUTINE VENIPUNCTURE CPT-4: 32773 04/19/2010 COMPLETE CBC W/AUTO DIFF WBC CPT-4: 58284 04/19/2010 COMPREHEN METABOLIC PANEL CPT-4: 55587 04/19/2010 LIPID PANEL CPT-4: 51670 04/19/2010 TESTOSTERONE TOTAL - MALE CPT-4: 12461 04/19/2010 ASSAY THYROID STIM HORMONE CPT-4: 27510 04/19/2010 ASSAY OF FREE THYROXINE CPT-4: 47712 04/19/2010 VITAMIN D TOTAL (25 HYDROXY) CPT-4: 23436 04/19/2010 Vital Signs Date Vital 01/31/2019 Blood [...] 1: 112/70 Code: 8480-6 BMI: 28.9 Code: 60198-8 Heart Rate 1: 60 bpm Height: 6'3" Respiratory Rate: 20 bpm SpO2: 95% Tempera ture: 36.6 (C) / 97.9 (F) Weight: 231 lbs 01/19/2018 Blood Pressure 1: 150/82 Code: 8480-6 Heart Rate 1: 63 bpm Respiratory Rate: 18 bpm SpO2: 98% Temperature: 36.0 (C) / 96.8 (F) We ight: 225 lbs 10/15/2017 Blood Pressure 1: 126/82 Code: 8480-6 BMI: 27.9 Code: 73672-9 Heart Rate 1: 64 bpm Height: 6'3" Respiratory Rate: 20 bpm SpO2: 96% Tempera ture: 36.7 (C) / 98.1 (F) Weight: 223 lbs 04/23/2017 Blood Pressure 1: 136/74 Code: 8480-6 BMI: 28.7 Code: 26549-1 Heart Rate 1: 76 bpm Height: 6'3" Respiratory Rate: 20 bpm Temperature: 37 .0 (C) / 98.6 (F) Weight: 230 lbs 03/11/2017 Blood Pressure 1: 136/66 Code: 8480-6 BMI: 28.6 Code: 23062-2 Heart Rate 1: 60 bpm Height: 6'3" Respiratory Rate: 20 bpm Temperature: 36 .7 (C) / 98.1 (F) Weight: 229 lbs 07/09/2016 Blood Pressure 1: 132/80 Code: 8480-6 BMI: 27.7 Code: 62777-3 Heart Rate 1: 64 bpm Height: 6'3" Respiratory Rate: 20 bpm SpO2: 96% Tempera ture: 36.9 (C) / 98.4 (F) Weight: 222 lbs 03/10/2016 Blood Pressure 1: 134/78 Code: 8480-6 BMI: 28.5 Code: 93648-8 Heart Rate 1: 60 bpm Height: 6'3" Respiratory Rate: 20 bpm SpO2: 96% Tempera ture: 36.7 (C) / 98.1 (F) Weight: 228 lbs 09/12/2015 Blood Pressure 1: 136 Code: 8480-6 Heart Rate 1: 84 bpm Height: Respiratory Rate: 24 bpm SpO2: 97% Temperature: 36.4 (C) / 97.6 (F) We ight: 09/10/2015 Blood Pressure 1: 124 Code: 8480-6 BMI: 28.5 Code: 35615-9 Heart Rate 1: 76 bpm Height: 6'3" Respiratory Rate: 24 bpm SpO2: 97% Tempera ture: 36.4 (C) / 97.6 (F) Weight: 228 lbs 09/06/2015 Blood Pressure 1: 124 Code: 8480-6 BMI: 29.0 Code: 66717-2 Heart Rate 1: 66 bpm Height: 6'3" Respiratory Rate: 20 bpm SpO2: 97% Tempera ture: 36.4 (C) / 97.6 (F) Weight: 232 lbs 06/29/2015 Blood Pressure 1: 124 Code: 8480-6 Heart Rate 1: 88 bpm Height: Respiratory Rate: 20 bpm Temperature: 36.7 (C) / 98.1 (F) Weight: 01/17/2015 Blood Pressure 1: 124 Code: 8480-6 BMI: 27.7 Code: 12680-6 Heart Rate 1: 76 bpm Height: 6'3" Respiratory Rate: 20 bpm Temperature: 36 .6 (C) / 97.8 (F) Weight: 222 lbs 09/19/2014 Blood Pressure 1: 12880 Code: 8480-6 BMI: 27.4 Code: 75273-1 Heart Rate 1: 64 bpm Height: 6'3" Respiratory Rate: 20 bpm Temperature: 36 .4 (C) / 97.6 (F) Weight: 219 lbs 10/17/2013 Blood Pressure 1: 116/70 Code: 8480-6 Heart Rate 1: 88 bpm Respiratory Rate: 20 bpm Temperature: 36.9 (C) / 98.4 (F) Weight: 220 lbs 09/23/2013 Blood Pressure 1: 124 Code: 8480-6 BMI: 28.7 Code: 48954-3 Heart Rate 1: 76 bpm Height: 6'3" Respiratory Rate: 20 bpm Temperature: 36 .8 (C) / 98.2 (F) Weight: 230 lbs 07/22/2013 Blood Pressure 1: 128/70 Code: 8480-6 He art Rate 1: 78 bpm 06/20/2013 Blood Pressure 1: 144/86 Code: 8480-6 BMI: 28.7 Code: 57412-2 Heart Rate 1: 92 bpm Height: 6'3" Respiratory Rate: 20 bpm Temperature: 36 .4 (C) / 97.6 (F) Weight: 230 lbs 11/25/2012 Blood Pressure 1: 128/80 Code: 8480-6 BMI: 27.5 Code: 39634-6 Heart Rate 1: 92 bpm Height: 6'3" Respiratory Rate: 20 bpm Temperature: 36 .8 (C) / 98.3 (F) Weight: 220 lbs 08/27/2012 Blood Pressure 1: 142/80 Code: 8480-6 BMI: 27.7 Code: 35405-0 Heart Rate 1: 76 bpm Height: 6'3" Respiratory Rate: 20 bpm Temperature: 36 .8 (C) / 98.3 (F) Weight: 222 lbs 05/11/2012 Blood Pressure 1: 136/80 Code: 8480-6 BMI: 27.7 Code: 43606-6 Heart Rate 1: 76 bpm Height: 6'3" Respiratory Rate: 20 bpm Temperature: 36 .8 (C) / 98.3 (F) Weight: 222 lbs 03/02/2012 Blood Pressure 1: 136/70 Code: 8480-6 BMI: 28.0 Code: 03794-1 Heart Rate 1: 80 bpm Height: 6'3" Respiratory Rate: 20 bpm Temperature: 36 .6 (C) / 97.8 (F) Weight: 224 lbs 12/11/2011 Blood Pressure 1: 142/80 Code: 8480-6 BMI: 27.1 Code: 39957-5 Heart Rate 1: 84 bpm Height: 6'3" Respiratory Rate: 20 bpm Temperature: 36 .9 (C) / 98.4 (F) Weight: 217 lbs 08/14/2011 Blood Pressure 1: 130/82 Code: 8480-6 He art Rate 1: 64 bpm 07/29/2011 Blood Pressure 1: 132/64 Code: 8480-6 BMI: 26.7 Code: 33689-1 Heart Rate 1: 72 bpm Height: 6'3" [...] 1: 142/88 Code: 8480-6 BMI: 26.4 Code: 02271-7 Heart Rate 1: 80 bpm Height: 6'3" [...] labs Encounters Encounter Performer Location Codes Date ([id number]) OFFICE/OUTPATIENT VISIT EST Diagnosis: Essential (primary) hypertension[ICD10: I10] Diagnosis: Type 2 diabetes mellitus without complications[ICD10: E11.9] Diagnosis: Mixed hyperlipidemia[ICD10: E78.2] Najma CLINTON CPT-4: 58891 01/31/2019 ([id number]) NURSE/OUTPATIENT VISIT EST Diagnosis: Mixed hyperlipidemia[ICD10: E78.2] Diagnosis: Type 2 diabetes mellitus without complications[ICD10: E11.9] Diagnosis: Essential (primary) hypertension[ICD10: I10] Diagnosis: Chronic kidney disease, unspecified[ICD10: N18.9] Najma OG [employer] CPT-4: 94702 01/26/2019 ([id number]) NURSE/OUTPATIENT VISIT EST Diagnosis: Chronic kidney disease, unspecified[ICD10: N18.9] Diagnosis: Essential (primary) hypertension[ICD10: I10] Najma OG [employer] CPT-4: 19223 09/30/2018 ([id number]) OFFICE/OUTPATIENT VISIT EST Diagnosis: Essential (primary) hypertension[ICD10: I10] Diagnosis: Type 2 diabetes mellitus without complications[ICD10: E11.9] Diagnosis: Mixed hyperlipidemia[ICD10: E78.2] Diagnosis: Unspecified kidney failure[ICD10: N19] Najma OG [employer] CPT-4: 26018 08/19/2018 ([id number]) NURSE/OUTPATIENT VISIT EST Diagnosis: Essential (primary) hypertension[ICD10: I10] Diagnosis: Type 1 diabetes mellitus with unspecified complications[ICD10: E10.8] Diagnosis: Mixed hyperlipidemia[ICD10: E78.2] Najma GODINEZ [employer] CPT-4: 60160 08/16/2018 ([id number]) OFFICE/OUTPATIENT VISIT EST Diagnosis: Essential (primary) hypertension[ICD10: I10] Diagnosis: Type 2 diabetes mellitus without complications[ICD10: E11.9] Diagnosis: Mixed hyperlipidemia[ICD10: E78.2] Najma Grey [employer] CPT-4: 46158 05/10/2018 ([id number]) NURSE/OUTPATIENT VISIT EST Diagnosis: Essential (primary) hypertension[ICD10: I10] Diagnosis: Mixed hyperlipidemia[ICD10: E78.2] Diagnosis: Type 1 diabetes mellitus with unspecified complications[ICD10: E10.8] Najma OG [employer] CPT-4: 77600 05/05/2018 ([id number]) OFFICE/OUTPATIENT VISIT EST Diagnosis: Type 2 diabetes mellitus without complications[ICD10: E11.9] Diagnosis: Mixed hyperlipidemia[ICD10: E78.2] Diagnosis: Nicotine dependence, unspecified, uncomplicated[ICD10: F17.200] Diagnosis: Essential (primary) hypertension[ICD10: I10] Najma GO DO [facility] CPT-4: 04436 01/19/2018 ([id number]) NURSE/OUTPATIENT VISIT EST Diagnosis: Type 1 diabetes mellitus with unspecified complications[ICD10: E10.8] Diagnosis: Essential (primary) hypertension[ICD10: I10] Diagnosis: Male erectile disorder[ICD10: F52.21] Diagnosis: Encounter for screening for malignant neoplasm of prostate[ICD10: Z12.5] Najma OG DO [facility] CPT-4: 02687 01/13/2018 ([id number]) OFFICE/OUTPATIENT VISIT EST Diagnosis: Type 2 diabetes mellitus without complications[ICD10: E11.9] Diagnosis: Essential (primary) hypertension[ICD10: I10] Diagnosis: Mixed hyperlipidemia[ICD10: E78.2] Najma OG Con[employer] [facility] CPT-4: 70043 10/15/2017 ([id number]) NURSE/OUTPATIENT VISIT EST Diagnosis: Type 2 diabetes mellitus without complications[ICD10: E11.9] Diagnosis: Mixed hyperlipidemia[ICD10: E78.2] Diagnosis: Essential (primary) hypertension[ICD10: I10] Diagnosis: Glossitis[ICD10: K14.0] Najma THAKKAR [employer] CPT-4: 90766 10/06/2017 ([id number]) OFFICE/OUTPATIENT VISIT EST Diagnosis: Type 2 diabetes mellitus without complications[ICD10: E11.9] Diagnosis: Mixed hyperlipidemia[ICD10: E78.2] Diagnosis: Essential (primary) hypertension[ICD10: I10] Najma OG DO [facility] CPT-4: 62786 03/11/2017 ([id number]) OFFICE/OUTPATIENT VISIT EST Diagnosis: Type 1 diabetes mellitus with unspecified complications[ICD10: E10.8] Diagnosis: Mixed hyperlipidemia[ICD10: E78.2] Diagnosis: Essential (primary) hypertension[ICD10: I10] Diagnosis: Other fatigue[ICD10: R53.83] Najma OG [employer] CPT-4: 46637 03/05/2017 ([id number]) OFFICE/OUTPATIENT VISIT EST Diagnosis: Type 2 diabetes mellitus without complications[ICD10: E11.9] Diagnosis: Mixed hyperlipidemia[ICD10: E78.2] Diagnosis: Essential (primary) hypertension[ICD10: I10] Diagnosis: Nicotine dependence, unspecified, uncomplicated[ICD10: F17.200] Najma OG [employer] CPT-4: 06493 07/09/2016 ([id number]) OFFICE/OUTPATIENT VISIT EST Diagnosis: Type 1 diabetes mellitus with unspecified complications[ICD10: E10.8] Diagnosis: Mixed hyperlipidemia[ICD10: E78.2] Diagnosis: Essential (primary) hypertension[ICD10: I10] Najma OG [employer] CPT-4: 57333 06/16/2016 ([id number]) OFFICE/OUTPATIENT VISIT EST Diagnosis: Type 2 diabetes mellitus without complications[ICD10: E11.9] Diagnosis: Mixed hyperlipidemia[ICD10: E78.2] Diagnosis: Essential (primary) hypertension[ICD10: I10] Najma OG [employer] CPT-4: 24797 03/10/2016 ([id number]) OFFICE/OUTPATIENT VISIT EST Diagnosis: Type 1 diabetes mellitus with unspecified complications[ICD10: E10.8] Diagnosis: Mixed hyperlipidemia[ICD10: E78.2] Diagnosis: Essential (primary) hypertension[ICD10: I10] Najma OG [employer] CPT-4: 25794 03/06/2016 ([id number]) OFFICE/OUTPATIENT VISIT EST Diagnosis: Bitten or stung by nonvenomous insect and other nonvenomous arthropods, subsequent encounter[ICD10: W57.XXXD] Diagnosis: Insect bite (nonvenomous), right thigh, subsequent encounter[ICD10: S70.361D] Barbara Brower NAJMA OG [employer] CPT-4: 27094 11/2015 ([id number]) OFFICE/OUTPATIENT VISIT EST Diagnosis: Bitten or stung by nonvenomous insect and other nonvenomous arthropods, initial encounter[ICD10: W57.XXXA] Diagnosis: Insect bite (nonvenomous), right thigh, initial encounter[ICD10: S70.361A] Barbara Brower NAJMA [employer] CPT-4: 00229 09/2015 ([id number]) OFFICE/OUTPATIENT VISIT EST Diagnosis: Mixed hyperlipidemia[ICD10: E78.2] Diagnosis: Essential (primary) hypertension[ICD10: I10] Diagnosis: Type 2 diabetes mellitus without complications[ICD10: E11.9] Diagnosis: Encounter for immunization[ICD10: Z23] Diagnosis: Encounter for screening for malignant neoplasm of colon[ICD10: Z12.11] Diagnosis: Abnormal weight gain[ICD10: R63.5] Barbaralinnette Brower ANUM GODINEZ [employer] CPT-4: 96472 09/06/2015 ([id number]) OFFICE/OUTPATIENT VISIT EST Diagnosis: Type 2 diabetes mellitus without complications[ICD10: E11.9] Diagnosis: Mixed hyperlipidemia[ICD10: E78.2] Diagnosis: Essential (primary) hypertension[ICD10: I10] Diagnosis: Encounter for screening for malignant neoplasm of prostate[ICD10: Z12.5] Diagnosis: Other fatigue[ICD10: R53.83] Najma MCARTHUR [employer] CPT-4: 24357 08/31/2015 OFFICE/OUTPATIENT VISIT EST Diagnosis: Diarrhea, unspecified[ICD10: R19.7] Henrietta MCCOY [employer] CPT-4: 25406 06/29/2015 OFFICE/OUTPATIENT VISIT EST Diagnosis: PNEUMOCOCCAL VACCINE[ICD10: Z23] Diagnosis: FLU VACCINE[ICD10: Z23] Diagnosis: Essential (primary) hypertension[ICD10: I10] Diagnosis: Mixed hyperlipidemia[ICD10: E78.2] Diagnosis: Type 1 diabetes mellitus with unspecified complications[ICD10: E10.8] Diagnosis: Actinic keratosis[ICD10: L57.0] Najma MCARTHUR [employer] CPT-4: 48350 01/17/2015 ([id number]) OFFICE/OUTPATIENT VISIT EST Diagnosis: Type 2 diabetes mellitus without complications[ICD10: E11.9] Diagnosis: Impaired fasting glucose[ICD10: R73.01] Diagnosis: Mixed hyperlipidemia[ICD10: E78.2] Diagnosis: Essential (primary) hypertension[ICD10: I10] Najma OG [employer] [facility] CPT-4: 21154 01/12/2015 ([id number]) OFFICE/OUTPATIENT VISIT EST Diagnosis: - I - HYPERLIPIDEMIA NEC/NOS[ICD9: 272.4] Diagnosis: HYPERTENSION[ICD9: 401.9] Diagnosis: DM W/O COMPLICATION TYPE II[ICD9: 250.00] Diagnosis: ACTINIC KERATOSIS[ICD9: 702.0] Najma OG DO [facility] CPT-4: 35948 09/19/2014 ([id number]) OFFICE/OUTPATIENT VISIT EST Diagnosis: HYPERLIPIDEMIA NEC/NOS[ICD9: 272.4] Diagnosis: HYPERTENSION[ICD9: 401.9] Diagnosis: IMPAIRED FASTING GLUCOSE[ICD9: 790.21] Diagnosis: MALAISE AND FATIGUE[ICD9: 780.79] Najma OG Conferen[employer] [facility] CPT-4: 35379 08/15/2014 ([id number]) OFFICE/OUTPATIENT VISIT EST Diagnosis: HYPERLIPIDEMIA NEC/NOS[ICD9: 272.4] Diagnosis: HYPERTENSION[ICD9: 401.9] Diagnosis: IMPAIRED FASTING GLUCOSE[ICD9: 790.21] Najma Longdasha SHABNAM ADELA LONG [employer] [facility] CPT-4: 39930 12/14/2013 ([id number]) OFFICE/OUTPATIENT VISIT EST Diagnosis: Post herpetic neuralgia[ICD9: 053.19] Najma ARCE CECILIA AmeenaMatilde KAHLIL [employer] [facility] CPT-4: 67405 10/17/2013 OFFICE/OUTPATIENT VISIT EST Diagnosis: Shingles[ICD9: 053.9] Diagnosis: Post herpetic neuralgia[ICD9: 053.19] Jeanie ARCE CECILIA Matilda OG [employer] [facility] CPT-4: 17580 09/23/2013 ([id number]) OFFICE/OUTPATIENT VISIT EST Diagnosis: HYPERTENSION[ICD9: 401.9] Diagnosis: HYPERLIPIDEMIA NEC/NOS[ICD9: 272.4] Diagnosis: IMPAIRED FASTING GLUCOSE[ICD9: 790.21] Najma HAQUE ADELA OG [employer] [facility] CPT-4: 42186 06/20/2013 ([id number]) OFFICE/OUTPATIENT VISIT EST Diagnosis: HYPERLIPIDEMIA NEC/NOS[ICD9: 272.4] Diagnosis: MALAISE AND FATIGUE[ICD9: 780.79] Diagnosis: ROUTINE MEDICAL EXAM[ICD9: V70.0] Diagnosis: HYPERTENSION[ICD9: 401.9] Diagnosis: IMPAIRED FASTING GLUCOSE[ICD9: 790.21] Najma CHAPMAN AmeenaMatilde MALIORA [facility] CPT-4: 26760 06/08/2013 ([id number]) OFFICE/OUTPATIENT VISIT EST Diagnosis: HYPERLIPIDEMIA NEC/NOS[ICD9: 272.4] Diagnosis: HYPERTENSION[ICD9: 401.9] Diagnosis: IMPAIRED FASTING GLUCOSE[ICD9: 790.21] Diagnosis: DIARRHEA[ICD9: 787.91] Najma Grey MALIELLIOT Stallings [facility] CPT-4: 72270 11/25/2012 ([id number]) OFFICE/OUTPATIENT VISIT EST Diagnosis: HYPERLIPIDEMIA NEC/NOS[ICD9: 272.4] Diagnosis: HYPERTENSION[ICD9: 401.9] Diagnosis: IMPAIRED FASTING GLUCOSE[ICD9: 790.21] Diagnosis: MALAISE AND FATIGUE[ICD9: 780.79] Najma Grey MALIORA [facility] CPT-4: 25108 11/11/2012 OFFICE/OUTPATIENT VISIT EST Diagnosis: Fungal dermatitis[ICD9: 111.9] Diagnosis: Dry skin dermatitis[ICD9: 692.89] Henrietta Grey MALIORA [facility] CPT-4: 54125 08/27/2012 ([id number]) OFFICE/OUTPATIENT VISIT EST Diagnosis: HYPERTENSION[ICD9: 401.9] Diagnosis: HYPERLIPIDEMIA NEC/NOS[ICD9: 272.4] Najma Grey MALIORA [facility] CPT-4: 17519 05/11/2012 ([id number]) OFFICE/OUTPATIENT VISIT EST Diagnosis: HYPERLIPIDEMIA NEC/NOS[ICD9: 272.4] Diagnosis: HYPERTENSION[ICD9: 401.9] Diagnosis: ROUTINE MEDICAL EXAM[ICD9: V70.0] Najma Grey MALIORA [facility] CPT-4: 36972 05/04/2012 ([id number]) OFFICE/OUTPATIENT VISIT EST Diagnosis: HYPERTENSION[ICD9: 401.9] Diagnosis: HYPERLIPIDEMIA NEC/NOS[ICD9: 272.4] Diagnosis: IMPAIRED FASTING GLUCOSE[ICD9: 790.21] Najma SAMSONNDER [facility] CPT-4: 42590 12/11/2011 ([id number]) OFFICE/OUTPATIENT VISIT EST Diagnosis: HYPERLIPIDEMIA NEC/NOS[ICD9: 272.4] Diagnosis: HYPERTENSION[ICD9: 401.9] Diagnosis: IMPAIRED FASTING GLUCOSE[ICD9: 790.21] Najma SAMSONNDER [facility] CPT-4: 53745 10/29/2011 ([id number]) OFFICE/OUTPATIENT VISIT EST Diagnosis: HYPERTENSION[ICD9: 401.9] Najma SAMSON NDER DO [facility] CPT-4: 12054 08/14/2011 ([id number]) OFFICE/OUTPATIENT VISIT EST Diagnosis: HYPERTENSION[ICD9: 401.9] Diagnosis: IMPAIRED FASTING GLUCOSE[ICD9: 790.21] Najma CHAPMAN SMatilde SAMSONNDER [facility] CPT-4: 31606 07/29/2011 ([id number]) OFFICE/OUTPATIENT VISIT EST Diagnosis: HYPERTENSION[ICD9: 401.9] Najma SAMSON NDER DO [facility] CPT-4: 63345 07/23/2011 ([id number]) OFFICE/OUTPATIENT VISIT EST Diagnosis: HYPERTENSION[ICD9: 401.9] Najma SAMSON NDER DO [facility] CPT-4: 98814 06/24/2011 OFFICE/OUTPATIENT VISIT EST Diagnosis: HYPERTENSION[ICD9: 401.9] Najma SAMSON NDER DO [facility] CPT-4: 47153 05/20/2011 OFFICE/OUTPATIENT VISIT EST Diagnosis: HYPERTENSION[ICD9: 401.9] Najma SAMSON NDER DO [facility] CPT-4: 19293 04/15/2011 OFFICE/OUTPATIENT VISIT EST Diagnosis: HYPERLIPIDEMIA NEC/NOS[ICD9: 272.4] Diagnosis: IMPAIRED FASTING GLUCOSE[ICD9: 790.21] Najma SAMSONNDER DO [facility] CPT-4: 41736 03/18/2011 ([id number]) OFFICE/OUTPATIENT VISIT EST Najma OG DO [employer] CPT-4: 17114 07/30/2010 ([id number]) PREV VISIT, EST, AGE 40-64 Najma OG DO [employer] CPT-4: 41046 04/24/2010 Plan of Care Planned Activity Notes Codes Status Date Visit Diagnosis Plan: Mixed hyperlipidemia Discussion: Mediterranean [...] ICD-9 : 250.00 ICD-10 : E11.9 01/31/2019 Appointment: Najma Og WPtel: [address] [place] [address] [place] FOLLOW UP 01/31/2019 Appointment: Najma Og WPtel: [address] [place] [address] [place] LAB 01/26/2019 Appointment: Najma Og WPtel: [address] [place] [address] [place] LAB 09/30/2018 Visit Diagnosis Plan: Unspecified [...] : E11.9 08/19/2018 Appointment: Najma Og WPtel: [address] [place], [place] [phone] [place] FOLLOW UP 08/19/2018 Appointment: Najma Og WPtel: [address] [place], [place] [phone] [place] LAB 08/16/2018 Visit Diagnosis Plan: Type [...] : I10 05/10/2018 Appointment: Najma Og WPtel: [address] [place] [address] FOLLOW UP 05/10/2018 Patient Education: Low Back Pain Exercises: Illustration Completed 05/10/2018 Patient Education: Low Back Pain Exercises Completed 05/10/2018 Appointment: Najma Og WPtel: [address] [place] [address] [place] LAB 05/05/2018 Visit Diagnosis Plan: Type [...] : E78.2 01/19/2018 Appointment: Najma Og WPtel: [address] [place], [place] [phone] [place] FOLLOW UP 01/19/2018 Patient Education: Patient Medication Summary Completed 01/19/2018 Appointment: Najma Og WPtel: [address] [place], [place] [phone] LAB 01/13/2018 Patient Education: Patient Medication Summary [...] : E78.2 10/15/2017 Appointment: Najma Og WPtel: [address] [place], [place] [phone] FOLLOW UP 10/15/2017 Patient Education: Patient Medication Summary Completed 10/15/2017 Appointment: Najma Og WPtel: [address] [place], [place] [phone] LAB 10/06/2017 Patient Education: Patient Medication Summary Completed 10/06/2017 Visit Diagnosis Plan: Actinic keratosis Discussion: Cr yotherapy as above ICD-9 : 702.0 ICD-10 : L57.0 04/23/2017 Appointment: Najma Og WPtel: [address] [place], [place] [phone] OFFICE SURGERY 04/23/2017 Patient Education: Patient Medication [...] : E11.9 03/11/2017 Appointment: Najma Og WPtel: [address] [place], [place] [phone] [place] FOLLOW UP 03/11/2017 Patient Education: Patient Medication Summary Completed 03/11/2017 Appointment: Najma Og WPtel: [address] [place], [place] [phone] [place] LAB 03/05/2017 Patient Education: Patient Medication [...] : E78.2 07/09/2016 Appointment: Najma Og WPtel: [address] [place], [place] [phone] [place] 07/08 lm ~sl 07/09 confirmed~sl FOLLOW UP 08/2016 Patient Education: Patient Medication Summary Completed 07/09/2016 Appointment: Najma Og WPtel: [address] [place], [place] [phone] [place] LAB 06/16/2016 Patient Education: Patient Medication Summary Completed 06/16/2016 Visit Plan: Lab discussed Accuchecks maribel ly Lifestyle change for 3mos then check CMP, HbA1C in 3mos Has had flu and pneumonia shot 03/10/2016 Appointment: Najma Og WPtel: [address] [place], [place] [phone] [place] 03/06 confirmed `sl FOLLOW UP 03/10/2016 Patient Education: Patient Medication Summary Completed 03/10/2016 Appointment: Najma Og WPtel: [id number] LAB 03/06/2016 Patient Education: Patient Medication Summary Completed 03/06/2016 Referral: Donavon Keller WPtel: [address] [place], [place] [phone] [place] Referral Completed 10/22/2015 Visit Plan: Tick bite area looks much be tter Continue current rxs and close monitoring Follow up if any new symptoms or worsening appearance 09/12/2015 Appointment: Barbara Brower [address] [place] [address] 09/10 confirmed~sl FOLLOW UP 09/12/2015 Patient Education: Patient Medication Summary Completed 09/12/2015 Visit Plan: Cover as above 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 topical steroids to calm down the inflammation(suspect most of redness is due to histamine response vs infection) Monitor closely Follow up in 2 days to recheck 09/10/2015 Appointment: Barbara Brower [address] [place], [place] [phone] ACUTE ILLNESS 09/10/2015 Patient Education: Patient [...] consider shingles vaccine 09/06/2015 Appointment: Barbara Brower [address] [place], [place] [phone] FOLLOW UP 09/06/2015 Patient Education: Patient Medication Summary Completed 09/06/2015 Care Plan: Referral Order SNOMED-CT : [id number] Pending 09/06/2015 Appointment: Najma Og WPtel: [id number] LAB 08/31/2015 Patient Education: Patient Medication Summary Completed 08/31/2015 Visit Plan: Offered aggressive (KUB, IV fluids, Labs) vs. conservative (oral hydration, treat symptoms, watchful waiting). Elects for conservative + labs. CBC & CMP at [facility] Discussed needed oral hydration (preferably with sports drinks), 24 hour clear liquid followed by BRAT diet and advance as tolerated Discussed s/s of worsening, go to UC/ER. 06/29/2015 Appointment: Henrietta Lubin WPtel: [address] [place], [place] [phone] ACUTE ILLNESS 06/29/2015 Patient Education: Patient Medication Summary Completed 06/29/2015 Visit Plan: Lab discussed Will keep meds the same Discussed diet/exercise at length Cryotherapy as above to AKs of arms Flu and Prevnar 13 given Trial of revatio per patient request for ED--warned of no nitrates Recheck 4mos 01/17/2015 Appointment: Najma Og WPtel: [address] [place], [place] [phone] 01/16 confirmed~sl FOLLOW UP 01/17/2015 Patient Education: Patient Medication Summary Completed 01/17/2015 Appointment: Najma Og WPtel: [address] [place], [place] [phone] [place] LAB 01/12/2015 Patient Education: Patient Medication Summary Completed 01/12/2015 Visit Plan: Lab discussed Start accuchec ks daily Cryotherapy as above 09/19/2014 Appointment: Najma Og WPtel: [address] [place], [place] [phone] 09/18 confirmed -mf FOLLOW UP 09/19/2014 Patient Education: Patient Medication Summary Completed 09/19/2014 Appointment: Najma Og WPtel: [address] [place], [place] [phone] [place] LAB 08/15/2014 Patient Education: Patient Medication Summary Completed 08/15/2014 Appointment: Najma Ogtel: [address] [place], [place] [phone] ACUTE ILLNESS 12/14/2013 Patient Education: Patient Medication Summary Completed 12/14/2013 Visit Plan: Patient using tylenol prn pa in Discussed possible shingles shot for booster in 9-12mos 10/17/2013 Appointment: Najma Og WPtel: [address] [place], [place] [phone] FOLLOW UP 10/17/2013 Patient Education: Patient Medication Summary Completed 10/17/2013 Appointment: Jeanie Briceño WPtel: [address] [place], [place] [phone] ACUTE ILLNESS 09/23/2013 Patient Education: Patient Medication Summary Completed 09/23/2013 Appointment: Najma Og WPtel: [address] [place], [place] [phone] BP CHECK 07/22/2013 Patient Education: Patient Medication Summary Completed 07/22/2013 Visit Plan: Lab discussed Discussed swit arun amlodopine to beta slim to see if helps with tremor BP check in 1mo 06/20/2013 Appointment: Najma Og WPtel: [address] [place], [place] [phone] 06/17 no answer FOLLOW UP 06/20/2013 Patient Education: Patient Medication Summary Completed 06/20/2013 Appointment: Najma Og WPtel: [address] [place], [place] [phone] LAB 06/08/2013 Patient Education: Patient Medication Summary Completed 06/08/2013 Visit Plan: BRAT diet and yogurt and gat orade Lab discussed Continue current meds Spot checks on BS 11/25/2012 Appointment: Najma Og WPtel: [address] [place], [place] [phone] 11/24 FOLLOW UP 11/25/2012 Patient Education: Patient Medication Summary Completed 11/25/2012 Appointment: Najma Og WPtel: [address] [place], [place] [phone] LAB 11/11/2012 Patient Education: Patient Medication Summary Completed 11/11/2012 Appointment: Henrietta Lubin WPtel: [address] [place], [place] [phone] WORK IN 08/27/2012 Patient Education: Patient Medication Summary Completed 08/27/2012 Visit Plan: Pt going to get new home BP moniter Continue crestor and restart fish oil and will check fasting lab in 6mos Lab results discussed 05/11/2012 Appointment: Najma Og WPtel: [address] [place], [place] [phone] 05/10 FOLLOW UP 05/11/2012 Patient Education: Patient Medication Summary Completed 05/11/2012 Appointment: Najma Og WPtel: [address] [place], [place] [phone] [place] LAB 05/04/2012 Patient Education: Patient Medication Summary Completed 05/04/2012 Visit Plan: 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 and forehead 03/02/2012 Appointment: Najma Og WPtel: [address] [place], [place] [phone] 03/01 OFFICE SURGERY 03/02/2012 Patient Education: Patient Medication Summary Completed 03/02/2012 Visit Plan: Labs discussed--recheck lab end of Nov/mar Continue current meds and continue to moniter BS daily and BP 1-2 times a week Plan on cryotherapy this fall so can wear longsleeves after procedure See urology 12/11/2011 Appointment: Najma Og WPtel: [address] [place], [place] [id number] FOLLOW UP 12/11/2011 Patient Education: Patient Medication Summary Completed 12/11/2011 Appointment: Najma Og WPtel: [address] [place], [place] [id number] [place] LAB 10/29/2011 Patient Education: Patient Medication Summary Completed 10/29/2011 Appointment: Najma Og WPtel: [address] [place], [place] [phone] [place] BP CHECK 08/14/2011 Patient Education: Patient Medication Summary Completed 08/14/2011 Appointment: Najma Og WPtel: [address] [place], [place] [id number] ACUTE ILLNESS 07/29/2011 Patient Education: Patient Medication Summary Completed 07/29/2011 Appointment: Najma Og WPtel: [address] [place], [place] [phone] [place] BP CHECK 07/23/2011 Patient Education: Patient Medication Summary Completed 07/23/2011 Appointment: Najma Og WPtel: [address] [place] [address] BP CHECK 06/24/2011 Patient Education: Patient Medication Summary Completed 06/24/2011 Appointment: Najma Og WPtel: [address] [place] [address] BP CHECK 05/20/2011 Patient Education: Patient Medication Summary Completed 05/20/2011 Appointment: Najma Og WPtel: [address] [place] [address] BP CHECK 04/29/2011 Patient Education: Patient Medication Summary Completed 04/29/2011 Appointment: Najma Ogtel: [address] [place] [address] BP CHECK 04/15/2011 Patient Education: Patient Medication Summary Completed 04/15/2011 Visit Plan: Continue current meds Add fi sh oil 1gm daily Glucometer given to use for accuchecks prn 03/18/2011 Appointment: Najma Og WPtel: [address] [place], [place] [phone] [place] FOLLOW UP 03/18/2011 Patient Education: Patient Medication Summary Completed 03/18/2011 Appointment: Najma Ogtel: [address] [place], [place] [phone] [place] LAB 03/14/2011 Patient Education: Patient Medication Summary Completed 03/14/2011 Appointment: Najma Og WPtel: [address] [place], [place] [phone] LAB 11/11/2010 Appointment: Najma Og WPtel: [address] [place], [place] [phone] UA 11/11/2010 Patient Education: Patient Medication Summary Completed 11/11/2010 Appointment: Najma Og WPtel: [address] [place], [place] [phone] LAB 10/29/2010 Patient Education: Patient Medication Summary Completed 10/29/2010 Appointment: Najma Og WPtel: [address] [place] [address] FOLLOW UP 07/30/2010 Patient Education: Patient Medication Summary Completed 07/30/2010 Appointment: Najma Og WPtel: [address] [place] [address] LAB 07/23/2010 Patient Education: Patient Medication Summary Completed 07/23/2010 Appointment: Najma Og WPtel: [address] [place], [place] [phone] LAB 04/26/2010 Patient Education: Patient Medication Summary Completed 04/26/2010 Visit Plan: Add PSA to lab Restart Crest or at 10mg daily Trial of Wellbutrin to aid in smoking cessation Check Lipids and LFTs in 3mos 04/24/2010 Appointment: Najma Og WPtel: [address] [place] [address] FOLLOW UP 04/24/2010 Patient Education: Patient Medication Summary Completed 04/24/2010 Appointment: Najma Og WPtel: [address] [place], [place] [phone] LAB 04/19/2010 Patient Education: Patient Medication Summary Completed 04/19/2010 Referral: Donavon Keller WPtel: [address] [place], [place] [phone] [place] Referral Completed Instructions Comment . Lab [...] . Labs discussed--recheck lab end of Feb / of Mar Continue current meds and continue [...]
--- OUTSIDE RECORDS SUMMARY | 2019-10-14 22:58 | XMS REPORT | CCD ---
Author Author Inocente Og D.O. 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 PP Unavailable CCM Unavailable Summary Purpose Interface Exchange Insurance Providers Payer name Policy type / Coverage type Covered republican ID Effective Begin Date Effective End Date [employer] MEDICARE Medicare Part B [id number] Unknown [facility] Medicare Part B [id number] Un known Family history Father Diagnosis Age At Onset Diabetes mellitus Type 2 Unknown Myocardial infarction Unknown Brother Diagnosis Age At Onset Diabetes mellitus Type 2 Unknown Mother Diagnosis Age At Onset Osteoarthritis Unknown Cerebrovascular disease Unknown Social History Social History Element Codes Description Effective Dates Tobacco history SNOMED CT: 487511531 Never smoker 12/21/2014 Marital status Unknown 07/30/2010 [...] ER 80 mg capsule,24 hr,extended release RxNorm: 861045 TAKE 1 CAPSULE BY MOUTH ONCE DAILY 03/15/2019 No Stop Date Active amlodipine 5 mg tablet RxNorm: 691214 1 Tablet(s) PO QD 12/27/2018 Active fenofibrate micronized 134 mg capsule RxNorm: 548007 TA KE 1 CAPSULE BY MOUTH ONCE DAILY FOR TRIGLYCERIDES 10/11/2018 No Stop Date Active amlodipine 5 mg tablet RxNorm: 944459 1 Tablet(s) PO QD 09/30/2018 Inactive metformin ER 500 mg tablet,extended release 24 hr RxNorm: 86 0975 TAKE 1 TABLET BY MOUTH ONCE DAILY 09/21/2018 03/14/2019 Inactive propranolol ER 80 mg capsule,24 hr,extended release RxNorm: 120055 TAKE 1 CAPSULE BY MOUTH ONCE DAILY 09/21/2018 03/14/2019 Inactive amlodipine 5 mg tablet RxNorm: 481275 1 Tablet(s) PO QD 08/25/2018 Inactive amlodipine 5 mg tablet RxNorm: 223244 1 Tablet(s) PO QD 08/25/2018 Inactive lisinopril 40 mg tablet RxNorm: 078470 TAKE 1 TABLET BY MOUTH O NCE DAILY 07/21/2018 08/24/2018 Inactive fenofibrate micronized 134 mg capsule RxNorm: 358475 TA KE 1 CAPSULE BY MOUTH ONCE DAILY FOR TRIGLYCERIDES 07/12/2018 10/10/2018 Inactive propranolol ER 80 mg capsule,24 hr,extended release RxNorm: 258626 TAKE 1 CAPSULE BY MOUTH ONCE DAILY 06/21/2018 09/20/2018 Inactive lisinopril 40 mg tablet RxNorm: 258549 TAKE 1 TABLET BY MOUTH O NCE DAILY 04/26/2018 07/20/2018 Inactive metformin ER 500 mg tablet,extended release 24 hr RxNorm: 973330 1 Tablet(s) QD 03/31/2018 09/20/2018 Inactive lisinopril 40 mg tablet RxNorm: 439679 TAKE 1 TABLET BY MOUTH O NCE DAILY 01/28/2018 04/25/2018 Inactive Vitamin D3 5,000 unit tablet RxNorm: 963951 1 Tablet(s) PO QD 01/1908/18/2018 Inactive fenofibrate micronized 134 mg capsule RxNorm: 625735 1 Capsule(s) PO QD for triglycerides 01/19/2018 07/11/2018 Inactive metformin ER 500 mg tablet,extended release 24 hr RxNorm: 155522 1 Tablet(s) QD 12/31/2017 03/30/2018 Inactive metformin ER 500 mg tablet,extended release 24 hr RxNorm: 953131 Tablet(s) 12/30/2017 12/30/2017 Inactive propranolol ER 80 mg capsule,24 hr,extended release RxNorm: 701569 1 Capsule(s) PO QD 12/17/2017 06/14/2018 Inactive metformin ER 500 mg tablet,extended release 24 hr RxNorm: 86 0975 1 Tablet(s) PO QD DUE FOR LABS AND APPT 12/02/2017 12/30/2017 Inactive Crestor 10 mg tablet RxNorm: 067310 TAKE ONE TABLET BY MOUTH ON CE DAILY 11/01/2017 01/18/2018 Inactive lisinopril 40 mg tablet RxNorm: 049102 TAKE ONE TABLET BY MOUTH ONCE DAILY [...] ER 80 mg capsule,24 hr,extended release RxNorm: 933992 1 Capsule(s) PO QD DUE FOR APPT 09/08/2017 12/17/2017 Inactive Crestor 10 mg tablet RxNorm: 780037 1 Tablet(s) PO QD T CHELSI ONE TABLET BY MOUTH DAILY 03/11/2017 09/06/2017 Inactive propranolol ER 80 mg capsule,24 hr,extended release RxNorm: 794508 1 Capsule(s) PO QD TAKE ONE CAPSULE BY MOUTH DAILY - REPLACES AMLODOPINE 03/11/2017 09/08/2017 Inactive metformin ER 500 mg tablet,extended release 24 hr RxNorm: 86 0975 1 Tablet(s) PO QD 03/11/2017 09/08/2017 Inactive lisinopril 40 mg tablet RxNorm: 552875 1 Tablet(s) PO QD 03/11/2017 0 09/06/2017 Inactive lisinopril 40 mg tablet RxNorm: 247902 1 Tablet(s) PO QD 02/16/2017 1 05/11/2016 Inactive metformin ER 500 mg tablet,extended release 24 hr RxNorm: 86 0975 1 Tablet(s) PO QD Due for labs and follow up before further refills 02/16/2017 017 Inactive propranolol ER 80 mg capsule,24 hr,extended release RxNorm: 879887 Capsule(s) TAKE ONE CAPSULE BY MOUTH DAILY - REPLACES AMLODOPINE 11/19/20162016 Inactive lisinopril 40 mg tablet RxNorm: 381413 1 Tablet(s) PO QD 11/17/2016 1 04/18/2016 Inactive metformin ER 500 mg tablet,extended release 24 hr RxNorm: 86 0975 1 Tablet(s) PO QD 11/17/2016 02/16/2017 Inactive lisinopril 40 mg tablet RxNorm: 703714 1 Tablet(s) PO Q D TAKE ONE TABLET BY MOUTH DAILY 08/19/2016 11/17/2016 Inactive metformin ER 500 mg tablet,extended release 24 hr RxNorm: 86 0975 Tablet(s) TAKE ONE TABLET BY MOUTH DAILY 08/19/2016 11/16/2016 Inactive propranolol ER 80 mg capsule,24 hr,extended release RxNorm: 989212 Capsule(s) TAKE ONE CAPSULE BY MOUTH DAILY - REPLACES AMLODOPINE 08/19/20162016 Inactive Crestor 10 mg tablet RxNorm: 307770 TAKE ONE TABLET BY MOUTH DAILY 06/16/2016 03/10/2017 Inactive lisinopril 40 mg tablet RxNorm: 625855 1 Tablet(s) PO Q D TAKE ONE TABLET BY MOUTH DAILY 05/23/2016 08/18/2016 Inactive metformin ER 500 mg tablet,extended release 24 hr RxNorm: 86 0975 TAKE ONE TABLET BY MOUTH DAILY 05/23/2016 08/19/2016 Inactive propranolol ER 80 mg capsule,24 hr,extended release RxNorm: 243958 TAKE ONE CAPSULE BY MOUTH DAILY - REPLACES AMLODOPINE 05/23/2016 08/19/2016 [facility] Crestor 10 mg tablet RxNorm: 958524 TAKE ONE TABLET BY MOUTH DAILY 03/31/2016 06/15/2016 Inactive metformin ER 500 mg tablet,extended release 24 hr RxNorm: 86 0975 TAKE ONE TABLET BY MOUTH DAILY 02/19/2016 05/22/2016 Inactive propranolol ER 80 mg capsule,24 hr,extended release RxNorm: 311852 TAKE ONE CAPSULE BY MOUTH DAILY - REPLACES AMLODOPINE 11/23/2015 05/20/2016 [facility] metformin ER 500 mg tablet,extended release 24 hr RxNorm: 86 0975 TAKE ONE TABLET BY MOUTH DAILY 11/08/2015 02/05/2016 Inactive Bactroban Nasal 2 % ointment RxNorm: 043052 Apply topic ally to affected area twice daily 09/10/2015 03/09/2016 Inactive Vibramycin 100 mg capsule RxNorm: 564623 1 Capsule(s) PO BID 201509/23/2015 Inactive lisinopril 40 mg tablet RxNorm: 895850 1 Tablet(s) PO Q D TAKE ONE TABLET BY MOUTH DAILY 08/27/2015 02/22/2016 Inactive metformin ER 500 mg tablet,extended release 24 hr RxNorm: 86 0975 TAKE ONE TABLET BY MOUTH DAILY 08/06/2015 11/03/2015 Inactive Levsin/SL 0.125 mg sublingual tablet RxNorm: 1660309 1 T ablet(s) SL Q4H as needed for stomach cramps 06/29/2015 07/03/2015 Inactive lisinopril 40 mg tablet RxNorm: 518045 Tablet(s) TAKE ONE TABLE T BY MOUTH DAILY 06/07/2015 08/26/2015 Inactive propranolol ER 80 mg capsule,24 hr,extended release RxNorm: 405017 TAKE ONE CAPSULE BY MOUTH DAILY - REPLACES AMLODOPINE 05/30/2015 11/22/2015 [facility]ive metformin ER 500 mg tablet,extended release 24 hr RxNorm: 86 0975 1 Tablet(s) PO QD 05/10/2015 08/05/2015 Inactive Crestor 10 mg tablet RxNorm: 160191 TAKE ONE TABLET BY MOUTH DAILY 04/18/2015 10/14/2015 Inactive metformin ER 500 mg tablet,extended release 24 hr RxNorm: 86 0975 TAKE ONE TABLET BY MOUTH DAILY 02/07/2015 05/10/2015 Inactive sildenafil 20 mg tablet RxNorm: 631055 1 Tablet(s) PO QD 01/17/2015 1 04/17/2014 Inactive propranolol ER 80 mg capsule,24 hr,extended release RxNorm: 962923 1 Capsule(s) PO QD replaces amlodopine 11/28/2014 05/26/2015 Inactive [[facility] -- BIN:[id number], PCN: [id number], Group: [id number], ID# [id number], Process claim through Uni-Control, for questions: . THIS IS NOT INSURANCE.] lisinopril 40 mg tablet RxNorm: 603373 TAKE ONE TABLET BY MOUTH DAILY 11/16/2014 06/07/2015 Inactive lisinopril 40 mg tablet RxNorm: 399581 1 Tablet(s) PO QD 08/21/2014 0 11/15/2014 Inactive [AttnRPh: Saving apply/adjudicate RxGRP: [id number] RxBIN:[id number] RxPCN: ID#:[id number]] lisinopril 40 mg tablet RxNorm: 196412 1 Tablet(s) PO Q D NEEDS SEEN FOR APPOINTMENT 07/14/2014 08/21/2014 Inactive [AttnRPh: Saving apply/adjudicate RxGRP:SG20 RxBIN:[id number] RxPCN: ID#:[id number]] Crestor 10 mg tablet RxNorm: 311814 TAKE ONE TABLET BY MOUTH 07/06/2014 01/01/2015 Inactive metformin ER 500 mg tablet,extended release 24 hr RxNorm: 86 0975 1 Tablet(s) QD TAKE ONE TABLET BY MOUTH ONCE A DAY 06/09/2014 12/05/2014 Inactive propranolol ER 80 mg capsule,24 hr,extended release RxNorm: 467717 1 Capsule(s) PO QD replaces amlodopine 06/05/2014 11/28/2014 Inactive [[employer] [facility] -- BIN:[id number], PCN: [id number], Group: [id number], ID# [id number], Process claim through Uni-Control, for questions: . THIS IS NOT INSURANCE.] propranolol ER 80 mg capsule,24 hr,extended release RxNorm: 635408 1 Capsule(s) PO QD replaces amlodopine 03/07/2014 06/05/2014 Inactive [[facility] -- BIN:[id number], PCN: [id number], Group: [id number], ID# [id number], Process claim through Uni-Control, for questions: . THIS IS NOT INSURANCE.] metformin ER 500 mg tablet,extended release 24 hr RxNorm: 86 0975 TAKE ONE TABLET BY MOUTH ONCE A DAY 12/15/2013 06/09/2014 Inactive propranolol ER 80 mg capsule,24 hr,extended release RxNorm: 340774 1 Capsule(s) PO QD replaces amlodopine 12/09/2013 03/07/2014 Inactive [[facility] BIN:089157, PCN: [id number], Group: [id number], ID# [id number], Process claim through Uni-Control, for questions: . THIS IS NOT INSURANCE.] acyclovir 800 mg tablet RxNorm: 582493 1 Tablet(s) PO QID 09/23/2013 09/29/2013 Inactive gabapentin 300 mg capsule RxNorm: 880685 1 Capsule(s) PO BID 201310/07/2013 Inactive metformin ER 500 mg tablet,extended release 24 hr RxNorm: 86 0975 1 Tablet(s) PO QD 09/19/2013 12/14/2013 Inactive propranolol ER 80 mg capsule,24 hr,extended release RxNorm: 296484 1 Capsule(s) PO QD replaces amlodopine 09/15/2013 12/09/2013 Inactive metformin ER 500 mg 24 hr tablet,extended release RxNorm: 86 0975 1 Tablet(s) PO QD 09/15/2013 09/18/2013 Inactive lisinopril 40 mg tablet RxNorm: 063502 1 Tablet(s) PO QD 07/19/2013 0 07/14/2014 Inactive Crestor 10 mg tablet RxNorm: 473833 Tablet(s) PO TAKE O NE TABLET BY MOUTH EVERY DAY 07/12/2013 07/05/2014 Inactive propranolol ER 80 mg capsule,24 hr,extended release RxNorm: 214354 1 Capsule(s) PO QD replaces amlodopine 06/20/2013 09/15/2013 Inactive triamcinolone acetonide 0.1 % topical ointment RxNorm: 03902 36 Application TOP BID 06/20/2013 06/26/2013 Inactive Crestor 10 mg tablet RxNorm: 117977 1 Tablet(s) PO QD 04/18/201310/2013 Inactive Viagra 100 mg tablet RxNorm: 646540 1 Tablet(s) PO as directed 01/0508/18/2018 Inactive TAKE ONE TABLET BY MOUTH DIRECTED Crestor 10 mg tablet RxNorm: 023833 1 Tablet(s) PO QD 01/17/201304/06 Inactive metformin ER 500 mg tablet,extended release 24 hr RxNorm: 86 0975 1 Tablet(s) PO QD TAKE ONE TABLET BY MOUTH EVERY DAY 12/23/2012 09/15/2013 Inactive triamcinolone acetonide 0.1 % topical ointment RxNorm: 48402 36 Application TOP BID 08/27/2012 09/02/2012 Inactive ketoconazole 2 % topical cream RxNorm: 124387 1 Application TOP QAM 08/27/2012 09/02/2012 Inactive lisinopril 40 mg tablet RxNorm: 986687 1 Tablet(s) PO QD 07/21/2012 0 07/15/2013 Inactive Crestor 10 mg tablet RxNorm: 730038 1 Tablet(s) PO QD 07/21/201210/04 Inactive amlodipine 10 mg tablet RxNorm: 719707 1 Tablet(s) PO QHS 07/21/2012 07/15/2013 Inactive metformin ER 500 mg tablet,extended release 24 hr RxNorm: 86 0977 Tablet(s) PO TAKE ONE TABLET BY MOUTH EVERY DAY 03/31/2012 12/22/2012 Inactive lisinopril 40 mg tablet RxNorm: 661401 1 Tablet(s) PO QD 07/29/2011 0 07/20/2012 Inactive amlodipine 10 mg tablet RxNorm: 123207 1 Tablet(s) PO QHS 07/29/2011 07/20/2012 Inactive amlodipine 10 mg Tab RxNorm: 681637 1 Tablet(s) PO QHS 07/29/2011 Inactive Viagra 100 mg tablet RxNorm: 033400 1 Tablet(s) PO as directed 07/0601/24/2013 Inactive TAKE ONE TABLET BY MOUTH DIRECTED Crestor 10 mg tablet RxNorm: 951948 1 Tablet(s) PO QD 07/29/201107/05 Inactive Norvasc 5 mg Tab RxNorm: 266334 1 Tablet(s) PO QD 07/16/2011 07/28/19 12 Inactive Norvasc 5 mg Tab RxNorm: 213093 1 Tablet(s) PO QD 06/26/2011 07/15/19 12 Inactive lisinopril 40 mg Tab RxNorm: 962848 1 Tablet(s) PO QD 05/13/201107/06 Inactive metformin ER 500 mg tablet,extended release 24 hr RxNorm: 86 0977 1 Tablet(s) PO QD 03/18/2011 07/28/2011 Inactive Crestor 10 mg Tab RxNorm: 609637 1 Tablet(s) PO QHS 01/27/20112011 Inactive metformin ER 500 mg 24 hr Tab RxNorm: 965982 1 Tablet(s) PO QD 11/0403/17/2011 Inactive Viagra 100 mg Tab RxNorm: 931467 Tablet(s) PO TAKE ON E TABLET BY MOUTH DIRECTED 08/26/2010 07/28/2011 Inactive metformin ER 500 mg 24 hr Tab RxNorm: 571676 1 Tablet(s) PO QD 07/0611/18/2010 Inactive Crestor 10 mg Tab RxNorm: 908725 1 Tablet(s) PO QHS 07/30/20102010 Inactive Crestor 10 mg Tab RxNorm: 300534 1 Tablet(s) PO QHS 05/20/20102010 Inactive Wellbutrin SR 150 mg Tab RxNorm: 301966 1 Tablet(s) PO QAM 04/24/1907/22/2010 Inactive Multivitamin And Mineral tablet RxNorm: 1 Tablet(s) PO QD No Start Date Active FreeStyle Lite Strips RxNorm: 1 Unit Dose Miscel laneous AC & HS check blood sugar AC and HS No Start Date Active Co Q-10 200 mg capsule RxNorm: 223579 1 Capsule(s) PO QD No Start Date Active lancets RxNorm: 1 Milliliter(s) Miscellaneous AC & HS No Start Robert e Active Vitamin D3 4,000 unit capsule RxNorm: 5909180 1 Capsule(s) PO QD No Start Date 07/08/2016 Inactive Fish Oil 360 mg-1,200 mg capsule RxNorm: 134980 2 Capsule(s) PO QD No Start Date 01/30/2019 Inactive hydrocodone 5 mg-acetaminophen 325 mg tablet RxNorm: 351471 1 Tablet(s) PO Q4H as needed for severe pain No Start Date 12/30/2015 Inactive Xanax 0.25 mg tablet RxNorm: 627388 1/2 Tablet(s) PO PRN for se andrea stress No Start Date 07/08/2016 Inactive lisinopril 40 mg Tab RxNorm: 038738 1 Tablet(s) PO QD No Start Date 0 05/12/2011 Inactive Fish Oil 1,000 mg capsule RxNorm: 1 Capsule(s) PO QD No Start Date 09/18/2014 Inactive naproxen 500 mg Tab RxNorm: 824857 1 Tablet(s) PO BID No Start Date 0 07/28/2011 Inactive aspirin 81 mg tablet RxNorm: 166222 1 Tablet(s) PO QD No Start Date 0 05/09/2018 Inactive Crestor 10 mg Tab RxNorm: 998836 1 Tablet(s) PO QD No Start Date 07/06 Inactive Crestor 5 mg tablet RxNorm: 021260 1 Tablet(s) PO QD No Start Date Inactive Fish Oil Oral RxNorm: Oral No Start Date 09/18/2014 Inactive Viagra 100 mg Tab RxNorm: 791998 1 Tablet(s) PO as directed No Star [...] Code Item Item Code Result Date S [facility] Location MEAN GLUC 1772639 Calc Mean Gluc 140 mg/dL 01/26/2019 Unkn own GLYCOSYLATED HEMOGLOBIN TEST 45709 Hgb A1c 30887-5 6.5 % 1 Unknown COMPREHENSIVE METABOLIC 84689 AST 17 U/L 2018 Unknown COMPREHENSIVE METABOLIC 81446 ALT 19 U/L 2018 Unknown COMPREHENSIVE METABOLIC 45010 BUN 19 mg/dL 2018 Unknown COMPREHENSIVE METABOLIC 63444 ALBUMIN 4.3 g/dL 2018 Unknown COMPREHENSIVE METABOLIC 41123 CHLORIDE 103 mmol/L 01/26 Unknown COMPREHENSIVE METABOLIC 50737 Bili Total 0.6 mg/dL 01/26 Unknown COMPREHENSIVE METABOLIC 31076 ALK PHOS 60 U/L 2018 Unknown COMPREHENSIVE METABOLIC 29585 SODIUM 140 mmol/L 01/26 Unknown COMPREHENSIVE METABOLIC 24522 CREATININE 1.21 mg/dL 01/05 Unknown COMPREHENSIVE METABOLIC 82664 CALCIUM 9.6 mg/dL 2018 Unknown COMPREHENSIVE METABOLIC 08788 POTASSIUM 4.5 mmol/L 01/26 Unknown COMPREHENSIVE METABOLIC 55641 Total Protein 6.7 g/dL Unknown COMPREHENSIVE METABOLIC 49834 Glucose 111 mg/dL 2018 Unknown COMPREHENSIVE METABOLIC 31344 Bicarbonate 28 mmol/L 01/05 Unknown COMPREHENSIVE METABOLIC 11686 AGAP 9 mmol/L 2018 Unknown COMPLETE BLOOD COUNT [id number] WBC 10.7 10e9/L 019 Unknown COMPLETE BLOOD COUNT [id number] RBC 4.38 10e12/L 2018 Unknown COMPLETE BLOOD COUNT [id number] HEMOGLOBIN 13.7 g/dL 01/27/20 19 Unknown COMPLETE BLOOD COUNT [id number] HEMATOCRIT 42.0 % 01/27/20 19 Unknown COMPLETE BLOOD COUNT [id number] MCV 95.9 fL 9 Unknown COMPLETE BLOOD COUNT [id number] MCH 31.3 pg 9 Unknown COMPLETE BLOOD COUNT 7223240 MCHC 32.6 g/dL 9 Unknown COMPLETE BLOOD COUNT [id number] PLATELET COUNT 232 10e9/L Unknown COMPLETE BLOOD COUNT [id number] Mean Plt Volume 11.4 fL Unknown COMPLETE BLOOD COUNT [id number] Neut Auto 68.7 % 9 Unknown COMPLETE BLOOD COUNT [id number] Lymph Auto 21.2 % 01/27/20 19 Unknown COMPLETE BLOOD COUNT [id number] Leon Auto 8.1 % 9 Unknown COMPLETE BLOOD COUNT [id number] RDW 14.1 % 9 Unknown COMPLETE BLOOD COUNT 9646528 Eos Auto 1.8 % 9 Unknown COMPLETE BLOOD COUNT 3484906 Baso Auto 0.2 % 9 Unknown COMPLETE BLOOD COUNT [id number] Neutrophil Abs 7.35 10e9/L Unknown COMPLETE BLOOD COUNT [id number] Lymphocyte Abs 2.27 10e9/L Unknown COMPLETE BLOOD COUNT [id number] Monocyte Abs 0.87 10e9/L 01/05 Unknown COMPLETE BLOOD COUNT [id number] Eosinophil Abs 0.19 10e9/L Unknown COMPLETE BLOOD COUNT 9697528 RDW-SD 47.7 fL 9 Unknown COMPLETE BLOOD COUNT [id number] Basophil Abs 0.02 10e9/L 01/05 Unknown GFR CALC 8304879 GFR Non Afr Amr 59 mL/min 01/26/2019 Unk nown GFR CALC 1079480 GFR Afr Amr >60 mL/min 01/26/2019 Unknow n LIPID GROUP 90510 Cholesterol 215 mg/dL 01/26/2019 Unkno wn LIPID GROUP 04874 Triglyceride 221 mg/dL 01/26/2019 Unkn own LIPID GROUP 45637 HDL CHOLESTEROL 41 mg/dL 01/26/2019 U nknown LIPID GROUP 26367 Chol/HDL Ratio 5.24 ratio 01/26/2019 U nknown LIPID GROUP 11255 NON-HDL Chol 174 mg/dL 01/26/2019 Unkn own LIPID GROUP 97058 LDL Cholesterol 130 mg/dL 01/26/2019 [place] [address] Glucose 104 mg/dL 09/30 [place] [address] CREATININE 1.18 mg/dL [place] [address] BUN 19 mg/dL 09/30 [place] [address] SODIUM 139 mmol/L 09/05 [place] [address] POTASSIUM 4.1 mmol/L 09/05 [place] [address] CHLORIDE 105 mmol/L 09/05 [place] [address] Bicarbonate 26 mmol/L [place] [address] AGAP 8 mmol/L 09/30 [place] [address] CALCIUM 9.3 mg/dL 09/30 Unknown GFR CALC [id number] GFR Non Afr Amr >60 mL/min 09/30/2018 Un known GFR CALC [id number] GFR Afr Amr >60 mL/min 09/30/2018 Unknow n MICROALBUMIN URINE RANDOM 70804 U Microalbumin <2.0 mg/L 08/19/2018 Unknown MICROALBUMIN URINE RANDOM 41701 U Creatinine 66 mg/dL 0 08/19/2018 Unknown MICROALBUMIN URINE RANDOM 75540 ALB/CR Ratio <3.0 mg/gCR 08/19/2018 Unknown COMPREHENSIVE METABOLIC 90486 AST 21 U/L 2018 Unknown COMPREHENSIVE METABOLIC 38162 ALT 20 U/L 2018 Unknown COMPREHENSIVE METABOLIC 92363 BUN 31 mg/dL 2018 Unknown COMPREHENSIVE METABOLIC 59768 ALBUMIN 4.4 g/dL 2018 Unknown COMPREHENSIVE METABOLIC 20792 CHLORIDE 105 mmol/L 08/16 Unknown COMPREHENSIVE METABOLIC 79569 Bili Total 0.5 mg/dL 08/16 Unknown COMPREHENSIVE METABOLIC 47258 ALK PHOS 40 U/L 2018 Unknown COMPREHENSIVE METABOLIC 82980 SODIUM 140 mmol/L 08/16 Unknown COMPREHENSIVE METABOLIC 98640 CREATININE 1.45 mg/dL 08/04 Unknown COMPREHENSIVE METABOLIC 57781 CALCIUM 9.8 mg/dL 2018 Unknown COMPREHENSIVE METABOLIC 67668 POTASSIUM 5.1 mmol/L 08/16 Unknown COMPREHENSIVE METABOLIC 49484 Total Protein 6.9 g/dL Unknown COMPREHENSIVE METABOLIC 49446 Glucose 110 mg/dL 2018 Unknown COMPREHENSIVE METABOLIC 09043 Bicarbonate 25 mmol/L 08/04 Unknown COMPREHENSIVE METABOLIC 20873 AGAP 10 mmol/L 2018 Unknown GFR CALC [id number] GFR Non Afr Amr 48 mL/min 08/16/2018 Unk nown GFR CALC 9174868 GFR Afr Amr 58 mL/min 08/16/2018 Unknown GLYCOSYLATED HEMOGLOBIN TEST 74414 Hgb A1c 22255-0 5.9 % 0 08/16/2018 Unknown LIPID GROUP 04308 Cholesterol 226 mg/dL 08/16/2018 Unkno wn LIPID GROUP 71373 Triglyceride 335 mg/dL 08/16/2018 Unkn own LIPID GROUP 41636 HDL CHOLESTEROL 32 mg/dL 08/16/2018 U nknown LIPID GROUP 75020 Chol/HDL Ratio 7.06 ratio 08/16/2018 U nknown LIPID GROUP 65953 NON-HDL Chol 194 mg/dL 08/16/2018 Unkn own LIPID GROUP 52265 LDL Cholesterol 127 mg/dL 08/16/2018 U nknown THYROID STIMULATING HORMONE 76898 TSH 2.475 uIU/mL 08/16/2018 Unknown COMPLETE BLOOD COUNT 7620828 WBC 7.5 10e9/L 08/17/19 19 Unknown COMPLETE BLOOD COUNT [id number] RBC 4.09 10e12/L 2018 Unknown COMPLETE BLOOD COUNT 6800551 HEMOGLOBIN 12.9 g/dL 08/17/19 19 Unknown COMPLETE BLOOD COUNT 3068705 HEMATOCRIT 40.0 % 08/17/19 19 Unknown COMPLETE BLOOD COUNT [id number] MCV 97.8 fL 9 Unknown COMPLETE BLOOD COUNT [id number] MCH 31.5 pg 9 Unknown COMPLETE BLOOD COUNT 1593592 MCHC 32.3 g/dL 9 Unknown COMPLETE BLOOD COUNT 8322886 PLATELET COUNT 258 10e9/L Unknown COMPLETE BLOOD COUNT 8671646 Mean Plt Volume 11.4 fL Unknown COMPLETE BLOOD COUNT 2477636 Neut Auto 62.9 % 9 Unknown COMPLETE BLOOD COUNT 7104563 Lymph Auto 27.3 % 08/17/19 19 Unknown COMPLETE BLOOD COUNT 3490751 Leon Auto 8.2 % 9 Unknown COMPLETE BLOOD COUNT 7137351 RDW 13.3 % 9 Unknown COMPLETE BLOOD COUNT 3494991 Eos Auto 1.5 % 9 Unknown COMPLETE BLOOD COUNT 2699398 Baso Auto 0.1 % 9 Unknown COMPLETE BLOOD COUNT 3414087 Neutrophil Abs 4.72 10e9/L Unknown COMPLETE BLOOD COUNT [id number] Lymphocyte Abs 2.05 10e9/L Unknown COMPLETE BLOOD COUNT [id number] Monocyte Abs 0.62 10e9/L 08/04 Unknown COMPLETE BLOOD COUNT 6049245 Eosinophil Abs 0.11 10e9/L Unknown COMPLETE BLOOD COUNT 8127585 RDW-SD 46.7 fL 9 Unknown COMPLETE BLOOD COUNT [id number] Basophil Abs 0.01 10e9/L 08/04 Unknown MEAN GLUC 5318740 Calc Mean Gluc 123 mg/dL 08/16/2018 Unkn own LIPID GROUP 38883 Cholesterol 212 mg/dL 05/05/2018 Unkno wn LIPID GROUP 83293 Triglyceride 271 mg/dL 05/05/2018 Unkn own LIPID GROUP 07691 HDL CHOLESTEROL 38 mg/dL 05/05/2018 U nknown LIPID GROUP 72400 Chol/HDL Ratio 5.58 ratio 05/05/2018 U nknown LIPID GROUP 03390 NON-HDL Chol 174 mg/dL 05/05/2018 Unkn own LIPID GROUP 84851 LDL Cholesterol 120 mg/dL 05/05/2018 U nknown GFR CALC 7740200 GFR Non Afr Amr 49 mL/min 05/05/2018 Unk nown GFR CALC 2662384 GFR Afr Amr 59 mL/min 05/05/2018 Unknown GLYCOSYLATED HEMOGLOBIN TEST 85820 Hgb A1c 48925-2 6.0 % 0 05/05/2018 Unknown MEAN GLUC 8091408 Calc Mean Gluc 126 mg/dL 05/05/2018 Unkn own COMPREHENSIVE METABOLIC 20230 AST 18 U/L 2018 Unknown COMPREHENSIVE METABOLIC 10341 ALT 23 U/L 2018 Unknown COMPREHENSIVE METABOLIC 74836 BUN 30 mg/dL 2018 Unknown COMPREHENSIVE METABOLIC 41063 ALBUMIN 4.3 g/dL 2018 Unknown COMPREHENSIVE METABOLIC 95794 CHLORIDE 106 mmol/L 05/05 Unknown COMPREHENSIVE METABOLIC 12864 Bili Total 0.4 mg/dL 05/05 Unknown COMPREHENSIVE METABOLIC 94780 ALK PHOS 39 U/L 2018 Unknown COMPREHENSIVE METABOLIC 21485 SODIUM 139 mmol/L 05/05 Unknown COMPREHENSIVE METABOLIC 67880 CREATININE 1.44 mg/dL 04/08 Unknown COMPREHENSIVE METABOLIC 09882 CALCIUM 9.6 mg/dL 2018 Unknown COMPREHENSIVE METABOLIC 42154 POTASSIUM 4.7 mmol/L 05/05 Unknown COMPREHENSIVE METABOLIC 04597 Total Protein 6.6 g/dL Unknown COMPREHENSIVE METABOLIC 02650 Glucose 112 mg/dL 2018 Unknown COMPREHENSIVE METABOLIC 88656 Bicarbonate 28 mmol/L 04/08 Unknown COMPREHENSIVE METABOLIC 01441 AGAP 5 mmol/L 2018 Unknown THYROID STIMULATING HORMONE 70135 TSH 3.725 uIU/mL 05/05/2018 Unknown COMPLETE BLOOD COUNT 3551600 WBC 8.2 10e9/L 05/05/19 19 Unknown COMPLETE BLOOD COUNT [id number] RBC 4.02 10e12/L 2018 Unknown COMPLETE BLOOD COUNT 5669885 HEMOGLOBIN 12.7 g/dL 05/05/19 19 Unknown COMPLETE BLOOD COUNT [id number] HEMATOCRIT 39.3 % 05/05/19 19 Unknown COMPLETE BLOOD COUNT [id number] MCV 97.8 fL 9 Unknown COMPLETE BLOOD COUNT 2983475 MCH 31.6 pg 9 Unknown COMPLETE BLOOD COUNT [id number] MCHC 32.3 g/dL 9 Unknown COMPLETE BLOOD COUNT [id number] PLATELET COUNT 213 10e9/L Unknown COMPLETE BLOOD COUNT [id number] Mean Plt Volume 11.7 fL Unknown COMPLETE BLOOD COUNT [id number] Neut Auto 55.7 % 9 Unknown COMPLETE BLOOD COUNT [id number] Lymph Auto 33.2 % 05/05/19 19 Unknown COMPLETE BLOOD COUNT [id number] Leon Auto 8.5 % 9 Unknown COMPLETE BLOOD COUNT [id number] RDW 13.9 % 9 Unknown COMPLETE BLOOD COUNT [id number] Eos Auto 2.4 % 9 Unknown COMPLETE BLOOD COUNT [id number] Baso Auto 0.2 % 9 Unknown COMPLETE BLOOD COUNT [id number] Neutrophil Abs 4.57 10e9/L Unknown COMPLETE BLOOD COUNT [id number] Lymphocyte Abs 2.72 10e9/L Unknown COMPLETE BLOOD COUNT [id number] Monocyte Abs 0.70 10e9/L 04/08 Unknown COMPLETE BLOOD COUNT [id number] Eosinophil Abs 0.20 10e9/L Unknown COMPLETE BLOOD COUNT [id number] RDW-SD 48.8 fL 9 Unknown COMPLETE BLOOD COUNT [id number] Basophil Abs 0.02 10e9/L 04/08 Unknown MICROALBUMIN URINE RANDOM 22249 U Microalbumin 19.3 mg/L 01/19/2018 Unknown MICROALBUMIN URINE RANDOM 19540 U Creatinine 96 mg/dL 1 Unknown MICROALBUMIN URINE RANDOM 63585 ALB/CR Ratio 20.1 mg/gCR 01/19/2018 Unknown L[facility] 41152 Cholesterol 173 mg/dL 01/13/2018 Unkno wn [facility] 06523 Triglyceride 386 mg/dL 01/13/2018 Unkn own [facility] 97091 HDL CHOLESTEROL 37 mg/dL 01/13/2018 U nknown L[facility] 42465 Chol/HDL Ratio 4.68 ratio 01/13/2018 U nknown [facility] 73941 NON-HDL Chol 136 mg/dL 01/13/2018 Unkn own [facility] 18879 LDL Cholesterol 59 mg/dL 01/13/2018 U nknown COMPLETE BLOOD COUNT [id number] WBC TNP:Client Request 01/13/2018 Unknown COMPLETE BLOOD COUNT [id number] RBC TNP:Client Request 01/13/2018 Unknown COMPLETE BLOOD COUNT [id number] HEMOGLOBIN TNP:Client Request 01/13/2018 Unknown COMPLETE BLOOD COUNT [id number] HEMATOCRIT TNP:Client Request 01/13/2018 Unknown COMPLETE BLOOD COUNT [id number] MCV TNP:Client Request 01/13/2018 Unknown COMPLETE BLOOD COUNT [id number] MCH TNP:Client Request 01/13/2018 Unknown COMPLETE BLOOD COUNT [id number] MCHC TNP:Client Request 01/13/2018 Unknown COMPLETE BLOOD COUNT [id number] PLATELET COUNT TNP:Client Req uest 01/13/2018 Unknown COMPLETE BLOOD COUNT [id number] Mean Plt Volume TNP:Client Re quest 01/13/2018 Unknown COMPLETE BLOOD COUNT [id number] Neut Auto TNP:Client Request 01/13/2018 Unknown COMPLETE BLOOD COUNT [id number] Lymph Auto TNP:Client Request 01/13/2018 Unknown COMPLETE BLOOD COUNT [id number] Leon Auto TNP:Client Request 01/13/2018 Unknown COMPLETE BLOOD COUNT [id number] RDW TNP:Client Request 01/13/2018 Unknown COMPLETE BLOOD COUNT [id number] Eos Auto TNP:Client Request 01/13/2018 Unknown COMPLETE BLOOD COUNT [id number] Baso Auto TNP:Client Request 01/13/2018 Unknown COMPLETE BLOOD COUNT [id number] Neutrophil Abs TNP:Client Req uest 01/13/2018 Unknown COMPLETE BLOOD COUNT [id number] Lymphocyte Abs TNP:Client Req uest 01/13/2018 Unknown COMPLETE BLOOD COUNT [id number] Monocyte Abs TNP:Client Reque st 01/13/2018 Unknown COMPLETE BLOOD COUNT [id number] Eosinophil Abs TNP:Client Req uest 01/13/2018 Unknown COMPLETE BLOOD COUNT [id number] RDW-SD TNP:Client Request 01/13/2018 Unknown COMPLETE BLOOD COUNT [id number] Basophil Abs TNP:Client Reque st 01/13/2018 Unknown GLYCOSYLATED HEMOGLOBIN TEST 62642 Hgb A1c 48488-1 6.2 % 1 Unknown THYROID STIMULATING HORMONE 11264 TSH 2.764 uIU/mL 01/13/2018 Unknown COMPREHENSIVE METABOLIC 46324 AST 19 U/L 2017 Unknown COMPREHENSIVE METABOLIC 30139 ALT 21 U/L 2017 Unknown COMPREHENSIVE METABOLIC 75869 BUN 16 mg/dL 2017 Unknown COMPREHENSIVE METABOLIC 42968 ALBUMIN 4.2 g/dL 2017 Unknown COMPREHENSIVE METABOLIC 00042 CHLORIDE 105 mmol/L 01/13 Unknown COMPREHENSIVE METABOLIC 10761 Bili Total 0.5 mg/dL 01/13 Unknown COMPREHENSIVE METABOLIC 91299 ALK PHOS 85 U/L 2017 Unknown COMPREHENSIVE METABOLIC 39850 SODIUM 139 mmol/L 01/13 Unknown COMPREHENSIVE METABOLIC 20468 CREATININE 1.07 mg/dL 01/04 Unknown COMPREHENSIVE METABOLIC 02242 CALCIUM 9.2 mg/dL 2017 Unknown COMPREHENSIVE METABOLIC 94138 POTASSIUM 4.4 mmol/L 01/13 Unknown COMPREHENSIVE METABOLIC 61247 Total Protein 7.7 g/dL Unknown COMPREHENSIVE METABOLIC 26971 Glucose 130 mg/dL 2017 Unknown COMPREHENSIVE METABOLIC 35712 Bicarbonate 27 mmol/L 01/04 Unknown COMPREHENSIVE METABOLIC 26829 AGAP 7 mmol/L 2017 Unknown PSA EQUIMOLAR JERSON 95006 PSA Total 1.16 ng/mL 8 Unknown MEAN GLUC [id number] Calc Mean Gluc 131 mg/dL 01/13/2018 Unkn own GFR CALC 8064264 GFR Non Afr Amr >60 mL/min 01/13/2018 Un known GFR CALC 6020400 GFR Afr Amr >60 mL/min 01/13/2018 Unknow n MEAN GLUC 0773500 Calc Mean Gluc 134 mg/dL 10/06/2017 Unkn own GFR CALC 5818246 GFR Non Afr Amr >60 mL/min 10/06/2017 Un known GFR CALC [id number] GFR Afr Amr >60 mL/min 10/06/2017 Unknow n GLYCOSYLATED HEMOGLOBIN TEST 84145 Hgb A1c 20546-5 6.3 % 0 10/06/2017 Unknown VITAMIN B 12 99248 VITAMIN B12 1202 pg/mL 10/06/2017 Unk nown COMPLETE BLOOD COUNT [id number] WBC 7.4 10e9/L 10/07/19 18 Unknown COMPLETE BLOOD COUNT [id number] RBC 4.24 10e12/L 2017 Unknown COMPLETE BLOOD COUNT 6941301 HEMOGLOBIN 13.5 g/dL 10/07/19 18 Unknown COMPLETE BLOOD COUNT [id number] HEMATOCRIT 41.6 % 10/07/19 18 Unknown COMPLETE BLOOD COUNT [id number] MCV 98.1 fL 8 Unknown COMPLETE BLOOD COUNT 5275411 MCH 31.8 pg 8 Unknown COMPLETE BLOOD COUNT [id number] MCHC 32.5 g/dL 8 Unknown COMPLETE BLOOD COUNT [id number] PLATELET COUNT 223 10e9/L 06/2017 Unknown COMPLETE BLOOD COUNT 2997526 Mean Plt Volume 11.9 fL 06/2017 Unknown COMPLETE BLOOD COUNT 0159478 Neut Auto 58.0 % 8 Unknown COMPLETE BLOOD COUNT [id number] Lymph Auto 29.7 % 10/07/19 18 Unknown COMPLETE BLOOD COUNT [id number] Leon Auto 8.3 % 8 Unknown COMPLETE BLOOD COUNT 3058399 RDW 14.0 % 8 Unknown COMPLETE BLOOD COUNT 6020969 Eos Auto 3.7 % 8 Unknown COMPLETE BLOOD COUNT 5104262 Baso Auto 0.3 % 8 Unknown COMPLETE BLOOD COUNT [id number] Neutrophil Abs 4.29 10e9/L Unknown COMPLETE BLOOD COUNT [id number] Lymphocyte Abs 2.20 10e9/L Unknown COMPLETE BLOOD COUNT 8040024 Monocyte Abs 0.61 10e9/L 06/2017 Unknown COMPLETE BLOOD COUNT [id number] Eosinophil Abs 0.27 10e9/L Unknown COMPLETE BLOOD COUNT 1959188 RDW-SD 48.6 fL 8 Unknown COMPLETE BLOOD COUNT [id number] Basophil Abs 0.02 10e9/L 06/2017 Unknown LIPID GROUP 60441 Cholesterol 216 mg/dL 10/06/2017 Unkno wn [facility] 71792 Triglyceride 335 mg/dL 10/06/2017 Unkn own [facility] 46319 HDL CHOLESTEROL 33 mg/dL 10/06/2017 U nknown [facility] 11800 Chol/HDL Ratio 6.55 ratio 10/06/2017 U nknown L[facility] GROUP 57846 NON-HDL Chol 183 mg/dL 10/06/2017 Unkn own [facility] 75008 LDL Cholesterol 116 mg/dL 10/06/2017 U nknown COMPREHENSIVE METABOLIC 85785 AST 15 U/L 2017 Unknown COMPREHENSIVE METABOLIC 61702 ALT 15 U/L 2017 Unknown COMPREHENSIVE METABOLIC 15631 BUN 21 mg/dL 2017 Unknown COMPREHENSIVE METABOLIC 84801 ALBUMIN 4.1 g/dL 2017 Unknown COMPREHENSIVE METABOLIC 29947 CHLORIDE 107 mmol/L 10/06 Unknown COMPREHENSIVE METABOLIC 10397 Bili Total 0.6 mg/dL 10/06 Unknown COMPREHENSIVE METABOLIC 08374 ALK PHOS 68 U/L 2017 Unknown COMPREHENSIVE METABOLIC 24979 SODIUM 140 mmol/L 10/06 Unknown COMPREHENSIVE METABOLIC 04046 CREATININE 1.12 mg/dL 06/2017 Unknown COMPREHENSIVE METABOLIC 02041 CALCIUM 9.7 mg/dL 2017 Unknown COMPREHENSIVE METABOLIC 69698 POTASSIUM 4.6 mmol/L 10/06 Unknown COMPREHENSIVE METABOLIC 56496 Total Protein 6.6 g/dL Unknown COMPREHENSIVE METABOLIC 30332 Glucose 114 mg/dL 2017 Unknown COMPREHENSIVE METABOLIC 71044 Bicarbonate 26 mmol/L 06/2017 Unknown COMPREHENSIVE METABOLIC 34479 AGAP 7 mmol/L 2017 Unknown GLYCOSYLATED HEMOGLOBIN TEST 14025 Hgb A1c 57831-2 6.1 % 1 05/05/2016 Unknown GFR CALC 1691822 GFR Non Afr Amr >60 mL/min 03/05/2017 Un known GFR CALC 2499633 GFR Afr Amr >60 mL/min 03/05/2017 Unknow n MEAN GLUC 1169673 Calc Mean Gluc 128 mg/dL 03/05/2017 Unkn own COMPREHENSIVE METABOLIC 59605 AST 18 U/L 2016 Unknown COMPREHENSIVE METABOLIC 01632 ALT 20 U/L 2016 Unknown COMPREHENSIVE METABOLIC 46866 BUN 15 mg/dL 2016 Unknown COMPREHENSIVE METABOLIC 53441 ALBUMIN 4.3 g/dL 2016 Unknown COMPREHENSIVE METABOLIC 11107 CHLORIDE 105 mmol/L 03/05 Unknown COMPREHENSIVE METABOLIC 82194 Bili Total 0.5 mg/dL 03/05 Unknown COMPREHENSIVE METABOLIC 68041 ALK PHOS 57 U/L 2016 Unknown COMPREHENSIVE METABOLIC 15408 SODIUM 141 mmol/L 03/05 Unknown COMPREHENSIVE METABOLIC 31045 CREATININE 1.07 mg/dL 02/06 Unknown COMPREHENSIVE METABOLIC 17949 CALCIUM 9.3 mg/dL 2016 Unknown COMPREHENSIVE METABOLIC 64198 POTASSIUM 4.8 mmol/L 03/05 Unknown COMPREHENSIVE METABOLIC 26921 Total Protein 6.2 g/dL Unknown COMPREHENSIVE METABOLIC 19443 Glucose 118 mg/dL 2016 Unknown COMPREHENSIVE METABOLIC 17323 Bicarbonate 29 mmol/L 02/06 Unknown COMPREHENSIVE METABOLIC 19012 AGAP 7 mmol/L 2016 Unknown FREE T4 53082 T4 Free 1.38 ng/dL 03/05/2017 Unknown COMPLETE BLOOD COUNT [id number] WBC 8.4 10e9/L 03/05/20 17 Unknown COMPLETE BLOOD COUNT [id number] RBC 4.11 10e12/L 2016 Unknown COMPLETE BLOOD COUNT 0968431 HEMOGLOBIN 12.8 g/dL 03/05/20 17 Unknown COMPLETE BLOOD COUNT [id number] HEMATOCRIT 40.1 % 03/05/20 17 Unknown COMPLETE BLOOD COUNT 7048820 MCV 97.6 fL 7 Unknown COMPLETE BLOOD COUNT 7579891 MCH 31.1 pg 7 Unknown COMPLETE BLOOD COUNT 8781818 MCHC 31.9 g/dL 7 Unknown COMPLETE BLOOD COUNT 0637899 PLATELET COUNT 184 10e9/L Unknown COMPLETE BLOOD COUNT 7753589 Mean Plt Volume 11.3 fL Unknown COMPLETE BLOOD COUNT 9658969 Neut Auto 62.5 % 7 Unknown COMPLETE BLOOD COUNT 5849265 Lymph Auto 26.4 % 03/05/20 17 Unknown COMPLETE BLOOD COUNT 2343562 Leon Auto 7.9 % 7 Unknown COMPLETE BLOOD COUNT 4233641 RDW 13.5 % 7 Unknown COMPLETE BLOOD COUNT 3452727 Eos Auto 3.0 % 7 Unknown COMPLETE BLOOD COUNT 1377931 Baso Auto 0.2 % 7 Unknown COMPLETE BLOOD COUNT 1801262 Neutrophil Abs 5.25 10e9/L Unknown COMPLETE BLOOD COUNT [id number] Lymphocyte Abs 2.22 10e9/L Unknown COMPLETE BLOOD COUNT [id number] Monocyte Abs 0.66 10e9/L 02/06 Unknown COMPLETE BLOOD COUNT [id number] Eosinophil Abs 0.25 10e9/L Unknown COMPLETE BLOOD COUNT 7414622 RDW-SD 46.7 fL 7 Unknown COMPLETE BLOOD COUNT 1748717 Basophil Abs 0.02 10e9/L 02/06 Unknown THYROID STIMULATING HORMONE 26927 TSH 2.330 uIU/mL 03/05/2017 Unknown LIPID GROUP 52106 Cholesterol 135 mg/dL 03/05/2017 Unkno wn [facility] GROUP 85699 Triglyceride 297 mg/dL 03/05/2017 Unkn own LIP[facility] GROUP 90605 HDL CHOLESTEROL 34 mg/dL 03/05/2017 U nknown LIP[facility] GROUP 74058 Chol/HDL Ratio 3.97 ratio 03/05/2017 U nknown L[facility] GROUP 55755 NON-HDL Chol 101 mg/dL 03/05/2017 Unkn own LIP[facility] GROUP 95718 LDL Cholesterol 42 mg/dL 03/05/2017 U nknown GLYCOSYLATED HEMOGLOBIN TEST 49190 Hgb A1c 68940-4 6.5 % 1 05/07/2015 Unknown GFR CALC 6175459 GFR Non Afr Amr 55 mL/min 03/06/2016 Unk nown GFR CALC 3497186 GFR Afr Amr >60 mL/min 03/06/2016 Unknow n COMPLETE BLOOD COUNT 9472273 WBC 8.5 10e9/L 03/06/20 16 Unknown COMPLETE BLOOD COUNT 5963017 RBC 4.32 10e12/L 2015 Unknown COMPLETE BLOOD COUNT 8375767 HEMOGLOBIN 13.5 g/dL 03/06/20 16 Unknown COMPLETE BLOOD COUNT 9642929 HEMATOCRIT 41.3 % 03/06/20 16 Unknown COMPLETE BLOOD COUNT 5077071 MCV 95.6 fL 6 Unknown COMPLETE BLOOD COUNT 9346901 MCH 31.3 pg 6 Unknown COMPLETE BLOOD COUNT 1789471 MCHC 32.7 g/dL 6 Unknown COMPLETE BLOOD COUNT 8859534 PLATELET COUNT 191 10e9/L 04/2015 Unknown COMPLETE BLOOD COUNT 3901292 Mean Plt Volume 11.7 fL 04/2015 Unknown COMPLETE BLOOD COUNT 0173323 Neut Auto 64.2 % 6 Unknown COMPLETE BLOOD COUNT 0650755 Lymph Auto 25.9 % 03/06/20 16 Unknown COMPLETE BLOOD COUNT 1562868 Leon Auto 7.8 % 6 Unknown COMPLETE BLOOD COUNT 3641420 RDW 13.4 % 6 Unknown COMPLETE BLOOD COUNT 6576154 Eos Auto 2.0 % 6 Unknown COMPLETE BLOOD COUNT 0799461 Baso Auto 0.1 % 6 Unknown COMPLETE BLOOD COUNT 7803192 Neutrophil Abs 5.46 10e9/L Unknown COMPLETE BLOOD COUNT 8941679 Lymphocyte Abs 2.20 10e9/L Unknown COMPLETE BLOOD COUNT 6441961 Monocyte Abs 0.66 10e9/L 04/2015 Unknown COMPLETE BLOOD COUNT 4264936 Eosinophil Abs 0.17 10e9/L Unknown COMPLETE BLOOD COUNT 4761753 RDW-SD 45.0 fL 6 Unknown COMPLETE BLOOD COUNT 3697860 Basophil Abs 0.01 10e9/L 04/2015 Unknown FREE T4 29219 T4 Free 1.34 ng/dL 03/06/2016 Unknown MEAN GLUC 6478387 Calc Mean Gluc 140 mg/dL 03/06/2016 Unkn own COMPREHENSIVE METABOLIC 80816 AST 15 U/L 2015 Unknown COMPREHENSIVE METABOLIC 44273 ALT 18 U/L 2015 Unknown COMPREHENSIVE METABOLIC 05005 BUN 21 mg/dL 2015 Unknown COMPREHENSIVE METABOLIC 59974 ALBUMIN 4.3 g/dL 2015 Unknown COMPREHENSIVE METABOLIC 60663 CHLORIDE 103 mmol/L 03/06 Unknown COMPREHENSIVE METABOLIC 18620 Bili Total 0.4 mg/dL 03/06 Unknown COMPREHENSIVE METABOLIC 29894 ALK PHOS 68 U/L 2015 Unknown COMPREHENSIVE METABOLIC 53662 SODIUM 140 mmol/L 03/06 Unknown COMPREHENSIVE METABOLIC 52365 CREATININE 1.31 mg/dL 04/2015 Unknown COMPREHENSIVE METABOLIC 23832 CALCIUM 9.4 mg/dL 2015 Unknown COMPREHENSIVE METABOLIC 32268 POTASSIUM 4.8 mmol/L 03/06 Unknown COMPREHENSIVE METABOLIC 46606 Total Protein 6.6 g/dL Unknown COMPREHENSIVE METABOLIC 82290 Glucose 142 mg/dL 2015 Unknown COMPREHENSIVE METABOLIC 92480 Bicarbonate 29 mmol/L 04/2015 Unknown COMPREHENSIVE METABOLIC 15098 AGAP 8 mmol/L 2015 Unknown THYROID STIMULATING HORMONE 73988 TSH 2.288 uIU/mL 03/06/2016 Unknown LIPID GROUP 33337 Cholesterol 154 mg/dL 03/06/2016 Unkno wn LIP[facility] GROUP 14494 Triglyceride 266 mg/dL 03/06/2016 Unkn own LIP[facility] GROUP 14099 HDL CHOLESTEROL 38 mg/dL 03/06/2016 U nknown LIPID GROUP 65669 Chol/HDL Ratio 4.05 ratio 03/06/2016 U nknown LIPID GROUP 86510 NON-HDL Chol 116 mg/dL 03/06/2016 Unkn own LIP[facility] GROUP 56060 LDL Cholesterol 63 mg/dL 03/06/2016 U nknown MEAN GLUC Mean Glucose 128 mg/dL 08/31/2015 Unknow n COMPLETE BLOOD COUNT 1407096 WBC 8.4 10e9/L 08/31/19 16 Unknown COMPLETE BLOOD COUNT 5405110 RBC 4.12 10e12/L 2015 Unknown COMPLETE BLOOD COUNT 9248636 HEMOGLOBIN 12.8 g/dL 08/31/19 16 Unknown COMPLETE BLOOD COUNT 2952620 HEMATOCRIT 39.6 % 08/31/19 16 Unknown COMPLETE BLOOD COUNT 7852361 MCV 96.1 fL 6 Unknown COMPLETE BLOOD COUNT 9455414 MCH 31.1 pg 6 Unknown COMPLETE BLOOD COUNT 7800534 MCHC 32.3 g/dL 6 Unknown COMPLETE BLOOD COUNT [id number] PLATELET COUNT 184 10e9/L Unknown COMPLETE BLOOD COUNT 7178711 Mean Plt Volume 12.0 fL Unknown COMPLETE BLOOD COUNT 4570779 Neut Auto 59.8 % 6 Unknown COMPLETE BLOOD COUNT 4323783 Lymph Auto 27.9 % 08/31/19 16 Unknown COMPLETE BLOOD COUNT 2198661 Leon Auto 9.1 % 6 Unknown COMPLETE BLOOD COUNT 5916945 RDW 13.6 % 6 Unknown COMPLETE BLOOD COUNT 2924320 Eos Auto 3.1 % 6 Unknown COMPLETE BLOOD COUNT 9111885 Baso Auto 0.1 % 6 Unknown COMPLETE BLOOD COUNT 4651664 Neutrophil Abs 5.02 10e9/L Unknown COMPLETE BLOOD COUNT 9159258 Lymphoctye Abs 2.34 10e9/L Unknown COMPLETE BLOOD COUNT [id number] Monocyte Abs 0.76 10e9/L 08/05 Unknown COMPLETE BLOOD COUNT 6984740 Eosinophil Abs 0.26 10e9/L Unknown COMPLETE BLOOD COUNT 9616000 RDW-SD 46.3 fL 6 Unknown COMPLETE BLOOD COUNT 6373433 Basophil Abs 0.01 10e9/L 08/05 Unknown GLYCOSYLATED HEMOGLOBIN TEST 82687 Hgb A1c 71694-4 6.1 % 0 08/31/2015 Unknown GFR CALC 3091359 GFR Non Afr Amr >60 mL/min 08/31/2015 Un known GFR CALC 3471475 GFR Afr Amr >60 mL/min 08/31/2015 Unknow n FREE T4 71946 T4 Free 1.21 ng/dL 08/31/2015 Unknown THYROID STIMULATING HORMONE 69476 TSH 2.988 uIU/mL 08/31/2015 Unknown COMPREHENSIVE METABOLIC 81738 AST 16 U/L 2015 Unknown COMPREHENSIVE METABOLIC 55877 ALT 19 U/L 2015 Unknown COMPREHENSIVE METABOLIC 90715 BUN 17 mg/dL 2015 Unknown COMPREHENSIVE METABOLIC 15038 ALBUMIN 4.3 g/dL 2015 Unknown COMPREHENSIVE METABOLIC 50337 CHLORIDE 107 mmol/L 08/30 Unknown COMPREHENSIVE METABOLIC 92082 Bili Total 0.4 mg/dL 08/30 Unknown COMPREHENSIVE METABOLIC 74633 ALK PHOS 66 U/L 2015 Unknown COMPREHENSIVE METABOLIC 21261 SODIUM 140 mmol/L 08/30 Unknown COMPREHENSIVE METABOLIC 87947 CREATININE 1.07 mg/dL 08/05 Unknown COMPREHENSIVE METABOLIC 32392 CALCIUM 9.5 mg/dL 2015 Unknown COMPREHENSIVE METABOLIC 57559 POTASSIUM 4.5 mmol/L 08/30 Unknown COMPREHENSIVE METABOLIC 67302 Total Protein 6.7 g/dL Unknown COMPREHENSIVE METABOLIC 13989 Glucose 122 mg/dL 2015 Unknown COMPREHENSIVE METABOLIC 60655 Bicarbonate 26 mmol/L 08/05 Unknown COMPREHENSIVE METABOLIC 75762 AGAP 7 mmol/L 2015 Unknown LIPID GROUP 37655 Cholesterol 171 mg/dL 08/31/2015 Unkno wn LIPID GROUP 69963 Triglyceride 428 mg/dL 08/31/2015 Unkn own LIPID GROUP 41533 HDL CHOLESTEROL 35 mg/dL 08/31/2015 U nknown LIPID GROUP 91850 Chol/HDL Ratio 4.89 ratio 08/31/2015 U nknown LIPID GROUP 68009 NON-HDL Chol 136 mg/dL 08/31/2015 Unkn own LIPID GROUP 33160 LDL Cholesterol 50 mg/dL 08/31/2015 U nknown PSA EQUIMOLAR JERSON 37714 PSA Total 0.47 ng/mL 201 6 Unknown GFR CALC 7963767 GFR AA >60 ML/MIN 01/12/2015 Unknown GFR CALC 6125960 GFR NON-AA >60 ML/MIN 01/12/2015 Unknown COMPREHENSIVE METABOLIC 70811 AST 18 U/L 2014 Unknown COMPREHENSIVE METABOLIC 06995 ALT 19 IU/L 2014 Unknown COMPREHENSIVE METABOLIC 40495 BUN 19 MG/DL 2014 Unknown COMPREHENSIVE METABOLIC 52803 ALBUMIN 4.7 GM/DL 2014 Unknown COMPREHENSIVE METABOLIC 44302 CHLORIDE 104 MMOL/L 01/12 Unknown COMPREHENSIVE METABOLIC 81802 BILI TOT 0.8 MG/DL 2014 Unknown COMPREHENSIVE METABOLIC 11798 ALK PHOS 58 U/L 2014 Unknown COMPREHENSIVE METABOLIC 84950 SODIUM 139 MMOL/L 01/12 Unknown COMPREHENSIVE METABOLIC 77750 CREATININE 1.09 MG/DL 12/2014 Unknown COMPREHENSIVE METABOLIC 14810 CALCIUM 9.6 MG/DL 2014 Unknown COMPREHENSIVE METABOLIC 04383 POTASSIUM 4.4 MMOL/L 01/12 Unknown COMPREHENSIVE METABOLIC 47869 PROT TOT 6.7 GM/DL 2014 Unknown COMPREHENSIVE METABOLIC 46694 Glucose 109 MG/DL 2014 Unknown COMPREHENSIVE METABOLIC 17909 BICARB 27 MMOL/L 2014 Unknown COMPREHENSIVE METABOLIC 43217 ANION GAP 8 MEQ/L 2014 Unknown LIPID GROUP 83620 HDL TEST 36 MG/DL 01/12/2015 Unknown LIPID GROUP 49860 TRIG 220 MG/DL 01/12/2015 Unknown LIPID GROUP 87795 TEST LDL 58 MG/DL 01/12/2015 Unknown LIPID GROUP 13307 CHOL 138 MG/DL 01/12/2015 Unknown LIPID GROUP 96810 RCHOL/HDL 3.83 RATIO 01/12/2015 Unknow n LIPID GROUP 14921 NON-HDL CH 102 MG/DL 01/12/2015 Unknow n GLYCOSYLATED HEMOGLOBIN TEST 50557 A1C [facility] 81355-1 6.1 % 1 Unknown COMPLETE BLOOD COUNT 8766980 WBC 7.1 10e9/L 01/13/20 15 Unknown COMPLETE BLOOD COUNT 3742358 RBC 4.38 10e12/L 2014 Unknown COMPLETE BLOOD COUNT 1423869 HGB 13.7 g/dL 5 Unknown COMPLETE BLOOD COUNT 3146098 HCT DET 41.3 % 5 Unknown COMPLETE BLOOD COUNT 2832403 MCV 94.3 fL 5 Unknown COMPLETE BLOOD COUNT 8671573 MCH 31.3 pg 5 Unknown COMPLETE BLOOD COUNT 3556275 MCHC 33.2 g/dL 5 Unknown COMPLETE BLOOD COUNT 5477327 PLT 174 10e9/L 01/13/20 15 Unknown COMPLETE BLOOD COUNT 0581306 MPV 11.8 fL 5 Unknown COMPLETE BLOOD COUNT 2109556 SAMIR % 61.3 % 5 Unknown COMPLETE BLOOD COUNT 6305327 LY % 28.3 % 5 Unknown COMPLETE BLOOD COUNT 3531348 MON % 7.6 % 5 Unknown COMPLETE BLOOD COUNT 4447389 EOS % 2.7 % 5 Unknown COMPLETE BLOOD COUNT 1472147 BASO % 0.1 % 5 Unknown COMPLETE BLOOD COUNT 5788064 RDW 13.1 % 5 Unknown COMPLETE BLOOD COUNT [id number] ABS SAMIR 4.35 10e9/L 015 Unknown COMPLETE BLOOD COUNT 8488975 ABS LYMPH 2.01 10e9/L 015 Unknown COMPLETE BLOOD COUNT 9583548 ABS MONO 0.54 10e9/L 015 Unknown COMPLETE BLOOD COUNT 9148781 ABS EOS 0.19 10e9/L 015 Unknown COMPLETE BLOOD COUNT 6709309 ABS BASO 0.01 10e9/L 015 Unknown COMPLETE BLOOD COUNT 8946514 RDW-SD 43.9 fL 5 Unknown GLYCOSYLATED HEMOGLOBIN TEST 32313 A1C HPLC 90479-6 6.1 % 0 08/15/2014 Unknown COMPLETE BLOOD COUNT 4101730 WBC 9.7 10e9/L 08/16/19 15 Unknown COMPLETE BLOOD COUNT 8398783 RBC 4.29 10e12/L 2014 Unknown COMPLETE BLOOD COUNT 5219415 HGB 13.3 g/dL 5 Unknown COMPLETE BLOOD COUNT 1473928 HCT DET 40.5 % 5 Unknown COMPLETE BLOOD COUNT 5896661 MCV 94.4 fL 5 Unknown COMPLETE BLOOD COUNT 5241719 MCH 31.0 pg 5 Unknown COMPLETE BLOOD COUNT 9907663 MCHC 32.8 g/dL 5 Unknown COMPLETE BLOOD COUNT 6755913 PLT 227 10e9/L 08/16/19 15 Unknown COMPLETE BLOOD COUNT 0248641 MPV 11.0 fL 5 Unknown COMPLETE BLOOD COUNT 0569289 SAMIR % 66.4 % 5 Unknown COMPLETE BLOOD COUNT 8077206 LY % 23.7 % 5 Unknown COMPLETE BLOOD COUNT 7807347 MON % 8.1 % 5 Unknown COMPLETE BLOOD COUNT 5645221 EOS % 1.6 % 5 Unknown COMPLETE BLOOD COUNT 6053646 BASO % 0.2 % 5 Unknown COMPLETE BLOOD COUNT 9170574 RDW 13.4 % 5 Unknown COMPLETE BLOOD COUNT 8959480 ABS SAMIR 6.44 10e9/L 015 Unknown COMPLETE BLOOD COUNT 0561537 ABS LYMPH 2.30 10e9/L 015 Unknown COMPLETE BLOOD COUNT 6996108 ABS MONO 0.79 10e9/L 015 Unknown COMPLETE BLOOD COUNT 7917647 ABS EOS 0.16 10e9/L 015 Unknown COMPLETE BLOOD COUNT 9437615 ABS BASO 0.02 10e9/L 015 Unknown COMPLETE BLOOD COUNT 4503133 RDW-SD 44.7 fL 5 Unknown COMPREHENSIVE METABOLIC 49498 AST 17 U/L 2014 Unknown COMPREHENSIVE METABOLIC 92419 ALT 23 IU/L 2014 Unknown COMPREHENSIVE METABOLIC 96813 BUN 16 MG/DL 2014 Unknown COMPREHENSIVE METABOLIC 34793 ALBUMIN 4.3 GM/DL 2014 Unknown COMPREHENSIVE METABOLIC 00151 CHLORIDE 107 MMOL/L 08/15 Unknown COMPREHENSIVE METABOLIC 94432 BILI TOT 0.4 MG/DL 2014 Unknown COMPREHENSIVE METABOLIC 60649 ALK PHOS 91 U/L 2014 Unknown COMPREHENSIVE METABOLIC 56066 SODIUM 139 MMOL/L 08/15 Unknown COMPREHENSIVE METABOLIC 51583 CREATININE 1.07 MG/DL 08/04 Unknown COMPREHENSIVE METABOLIC 05607 CALCIUM 9.6 MG/DL 2014 Unknown COMPREHENSIVE METABOLIC 66924 POTASSIUM 4.6 MMOL/L 08/15 Unknown COMPREHENSIVE METABOLIC 80304 PROT TOT 6.7 GM/DL 2014 Unknown COMPREHENSIVE METABOLIC 60190 Glucose 111 MG/DL 2014 Unknown COMPREHENSIVE METABOLIC 95248 BICARB 27 MMOL/L 2014 Unknown COMPREHENSIVE METABOLIC 98103 ANION GAP 5 MEQ/L 2014 Unknown GFR CALC 4790550 GFR AA >60 ML/MIN 08/15/2014 Unknown GFR CALC 5045892 GFR NON-AA >60 ML/MIN 08/15/2014 Unknown THYROID STIMULATING HORMONE 95325 TSH 1.598 uIU/ML 08/15/2014 Unknown LIPID GROUP 36884 HDL TEST 33 MG/DL 08/15/2014 Unknown LIPID GROUP 50973 TRIG 187 MG/DL 08/15/2014 Unknown LIPID GROUP 21807 TEST LDL 58 MG/DL 08/15/2014 Unknown LIPID GROUP 32820 CHOL 128 MG/DL 08/15/2014 Unknown LIPID GROUP 73997 RCHOL/HDL 3.88 RATIO 08/15/2014 Unknow n LIPID GROUP 18427 NON-HDL CH 95 MG/DL 08/15/2014 Unknow n PSA EQUIMOLAR JERSON 00222 PSA EQ 0.70 NG/ML 5 Unknown FREE T4 29972 FREE T4 1.32 NG/DL 08/15/2014 Unknown GFR CALC 4653243 GFR AA >60 ML/MIN 12/14/2013 Unknown GFR CALC 9164007 GFR NON-AA 58.0L ML/MIN 12/14/2013 Unkno wn COMPLETE BLOOD COUNT 3885098 WBC 8.7 10e9/L 12/15/19 14 Unknown COMPLETE BLOOD COUNT 9830785 RBC 4.32 10e12/L 2013 Unknown COMPLETE BLOOD COUNT 2443202 HGB 13.5 g/dL 4 Unknown COMPLETE BLOOD COUNT 9135168 HCT DET 40.6 % 4 Unknown COMPLETE BLOOD COUNT 1004914 MCV 94.0 fL 4 Unknown COMPLETE BLOOD COUNT 8157968 MCH 31.3 pg 4 Unknown COMPLETE BLOOD COUNT 3604701 MCHC 33.3 g/dL 4 Unknown COMPLETE BLOOD COUNT 3719144 PLT 205 10e9/L 12/15/19 14 Unknown COMPLETE BLOOD COUNT 9516931 MPV 11.7 fL 4 Unknown COMPLETE BLOOD COUNT 8206538 SAMIR % 62.5 % 4 Unknown COMPLETE BLOOD COUNT 1677972 LY % 26.9 % 4 Unknown COMPLETE BLOOD COUNT 1209368 MON % 8.8 % 4 Unknown COMPLETE BLOOD COUNT 5773803 EOS % 1.7 % 4 Unknown COMPLETE BLOOD COUNT 4761959 BASO % 0.1 % 4 Unknown COMPLETE BLOOD COUNT 4331858 RDW 13.4 % 4 Unknown COMPLETE BLOOD COUNT 8643018 ABS SAMIR 5.44 10e9/L 014 Unknown COMPLETE BLOOD COUNT 2150508 ABS LYMPH 2.34 10e9/L 014 Unknown COMPLETE BLOOD COUNT 9893162 ABS MONO 0.77 10e9/L 014 Unknown COMPLETE BLOOD COUNT 3920296 ABS EOS 0.15 10e9/L 014 Unknown COMPLETE BLOOD COUNT 8790598 ABS BASO 0.01 10e9/L 014 Unknown COMPLETE BLOOD COUNT 0201863 RDW-SD 44.7 fL 4 Unknown COMPREHENSIVE METABOLIC 13281 AST 14 U/L 2013 Unknown COMPREHENSIVE METABOLIC 14698 ALT 12 IU/L 2013 Unknown COMPREHENSIVE METABOLIC 69449 BUN 24 MG/DL 2013 Unknown COMPREHENSIVE METABOLIC 44235 ALBUMIN 4.5 GM/DL 2013 Unknown COMPREHENSIVE METABOLIC 46327 CHLORIDE 104 MMOL/L 12/14 Unknown COMPREHENSIVE METABOLIC 08068 BILI TOT 0.6 MG/DL 2013 Unknown COMPREHENSIVE METABOLIC 60427 ALK PHOS 82 U/L 2013 Unknown COMPREHENSIVE METABOLIC 88257 SODIUM 135 MMOL/L 12/14 Unknown COMPREHENSIVE METABOLIC 20615 CREATININE 1.25 MG/DL 12/05 Unknown COMPREHENSIVE METABOLIC 59272 CALCIUM 9.8 MG/DL 2013 Unknown COMPREHENSIVE METABOLIC 92196 POTASSIUM 4.7 MMOL/L 12/14 Unknown COMPREHENSIVE METABOLIC 55009 PROT TOT 6.7 GM/DL 2013 Unknown COMPREHENSIVE METABOLIC 19286 Glucose 126 MG/DL 2013 Unknown COMPREHENSIVE METABOLIC 51852 BICARB 27 MMOL/L 2013 Unknown COMPREHENSIVE METABOLIC 37062 ANION GAP 4 MEQ/L 2013 Unknown THYROID STIMULATING HORMONE 29033 TSH 3.281 uIU/ML 12/14/2013 Unknown FREE T4 05035 FREE T4 1.28 NG/DL 12/14/2013 Unknown LIPID GROUP 97435 HDL TEST 36 MG/DL 12/14/2013 Unknown LIPID GROUP 85275 TRIG 253 MG/DL 12/14/2013 Unknown LIPID GROUP 70642 TEST LDL 56 MG/DL 12/14/2013 Unknown LIPID GROUP 67679 CHOL 143 MG/DL 12/14/2013 Unknown LIPID GROUP 95558 RCHOL/HDL 3.97 RATIO 12/14/2013 Unknow n LIPID GROUP 52582 NON-HDL CH 107 MG/DL 12/14/2013 Unknow n GLYCOSYLATED HEMOGLOBIN TEST 63170 A1C HPLC 33918-4 6.1 % 0 12/14/2013 Unknown GLYCOSYLATED HEMOGLOBIN TEST 75191 A1C HPLC 36328-4 6.0 % 0 06/08/2013 Unknown LIPID GROUP 93825 HDL TEST 39 MG/DL 06/08/2013 Unknown LIPID GROUP 82102 TRIG 166 MG/DL 06/08/2013 Unknown LIPID GROUP 15547 TEST LDL 86 MG/DL 06/08/2013 Unknown LIPID GROUP 08815 CHOL 158 MG/DL 06/08/2013 Unknown LIPID GROUP 97195 RCHOL/HDL 4.05 RATIO 06/08/2013 Unknow n COMPREHENSIVE METABOLIC 31597 AST 17 U/L 2013 Unknown COMPREHENSIVE METABOLIC 83229 ALT 25 IU/L 2013 Unknown COMPREHENSIVE METABOLIC 75190 BUN 18 MG/DL 2013 Unknown COMPREHENSIVE METABOLIC 02727 ALBUMIN 4.5 GM/DL 2013 Unknown COMPREHENSIVE METABOLIC 40547 CHLORIDE 103 MMOL/L 06/08 Unknown COMPREHENSIVE METABOLIC 03024 BILI TOT 0.4 MG/DL 2013 Unknown COMPREHENSIVE METABOLIC 69111 ALK PHOS 72 U/L 2013 Unknown COMPREHENSIVE METABOLIC 56035 SODIUM 137 MMOL/L 06/08 Unknown COMPREHENSIVE METABOLIC 30338 CREATININE 1.07 MG/DL 08/2013 Unknown COMPREHENSIVE METABOLIC 83209 CALCIUM 9.7 MG/DL 2013 Unknown COMPREHENSIVE METABOLIC 43459 POTASSIUM 4.7 MMOL/L 06/08 Unknown COMPREHENSIVE METABOLIC 97489 PROT TOT 6.6 GM/DL 2013 Unknown COMPREHENSIVE METABOLIC 78368 Glucose 130 MG/DL 2013 Unknown COMPREHENSIVE METABOLIC 72732 BICARB 25 MMOL/L 2013 Unknown COMPREHENSIVE METABOLIC 34904 ANION GAP 9 MEQ/L 2013 Unknown FREE T4 00830 FREE T4 1.29 NG/DL 06/08/2013 Unknown THYROID STIMULATING HORMONE 63892 TSH 2.445 uIU/ML 06/08/2013 Unknown GFR CALC 5437814 GFR AA >60 ML/MIN 06/08/2013 Unknown GFR CALC 2579777 GFR NON-AA >60 ML/MIN 06/08/2013 Unknown COMPLETE BLOOD COUNT 0693256 WBC 8.2 10e9/L 06/09/19 14 Unknown COMPLETE BLOOD COUNT [id number] RBC 4.63 10e12/L 2013 Unknown COMPLETE BLOOD COUNT 2062665 HGB 14.1 g/dL 4 Unknown COMPLETE BLOOD COUNT [id number] HCT DET 42.6 % 4 Unknown COMPLETE BLOOD COUNT 6597465 MCV 92.0 fL 4 Unknown COMPLETE BLOOD COUNT 9072080 MCH 30.5 pg 4 Unknown COMPLETE BLOOD COUNT 0085365 MCHC 33.1 g/dL 4 Unknown COMPLETE BLOOD COUNT 6343737 PLT 222 10e9/L 06/09/19 14 Unknown COMPLETE BLOOD COUNT 7343715 MPV 10.8 fL 4 Unknown COMPLETE BLOOD COUNT [id number] SAMIR % 60.8 % 4 Unknown COMPLETE BLOOD COUNT 1231946 LY % 29.2 % 4 Unknown COMPLETE BLOOD COUNT [id number] MON % 7.6 % 4 Unknown COMPLETE BLOOD COUNT [id number] EOS % 2.3 % 4 Unknown COMPLETE BLOOD COUNT 9172765 BASO % 0.1 % 4 Unknown COMPLETE BLOOD COUNT 5367477 RDW 13.7 % 4 Unknown COMPLETE BLOOD COUNT [id number] ABS SAMIR 4.99 10e9/L 014 Unknown COMPLETE BLOOD COUNT [id number] ABS LYMPH 2.39 10e9/L 014 Unknown COMPLETE BLOOD COUNT [id number] ABS MONO 0.62 10e9/L 014 Unknown COMPLETE BLOOD COUNT [id number] ABS EOS 0.19 10e9/L 014 Unknown COMPLETE BLOOD COUNT [id number] ABS BASO 0.01 10e9/L 014 Unknown COMPLETE BLOOD COUNT [id number] RDW-SD 45.2 fL 4 Unknown LIPID GROUP 63771 HDL TEST 40 MG/DL 11/11/2012 Unknown LIPID GROUP 28288 TRIG 153 MG/DL 11/11/2012 Unknown LIPID GROUP 38486 TEST LDL 71 MG/DL 11/11/2012 Unknown LIPID GROUP 56982 CHOL 142 MG/DL 11/11/2012 Unknown LIPID GROUP 09997 RCHOL/HDL 3.55 RATIO 11/11/2012 Unknow n GFR CALC 5954286 GFR AA >60 ML/MIN 11/11/2012 Unknown GFR CALC 4323772 GFR NON-AA 57.0L ML/MIN 11/11/2012 Unkno wn HEMOGLOBIN A1C (GLYCOSYLATED) 8451555 A1C HPLC 79379-6 5.9 % 11/11/2012 Unknown THYROID STIMULATING HORMONE 66032 TSH 2.439 uIU/ML 11/11/2012 Unknown COMPLETE BLOOD COUNT 5684423 WBC 8.5 10e9/L 11/12/19 13 Unknown COMPLETE BLOOD COUNT [id number] RBC 4.42 10e12/L 2012 Unknown COMPLETE BLOOD COUNT 9863361 HGB 13.7 g/dL 3 Unknown COMPLETE BLOOD COUNT 1395740 HCT DET 41.3 % 3 Unknown COMPLETE BLOOD COUNT 1596591 MCV 93.4 fL 3 Unknown COMPLETE BLOOD COUNT 5036629 MCH 31.0 pg 3 Unknown COMPLETE BLOOD COUNT 3584610 MCHC 33.2 g/dL 3 Unknown COMPLETE BLOOD COUNT 4163631 PLT 220 10e9/L 11/12/19 13 Unknown COMPLETE BLOOD COUNT 6679664 MPV 10.8 fL 3 Unknown COMPLETE BLOOD COUNT 3739629 SAMIR % 60.4 % 3 Unknown COMPLETE BLOOD COUNT 4104837 LY % 28.7 % 3 Unknown COMPLETE BLOOD COUNT [id number] MON % 8.0 % 3 Unknown COMPLETE BLOOD COUNT 1033485 EOS % 2.8 % 3 Unknown COMPLETE BLOOD COUNT [id number] BASO % 0.1 % 3 Unknown COMPLETE BLOOD COUNT 5644855 RDW 13.7 % 3 Unknown COMPLETE BLOOD COUNT [id number] ABS SAMIR 5.13 10e9/L 013 Unknown COMPLETE BLOOD COUNT 5228741 ABS LYMPH 2.44 10e9/L 013 Unknown COMPLETE BLOOD COUNT 1187589 ABS MONO 0.68 10e9/L 013 Unknown COMPLETE BLOOD COUNT 0796177 ABS EOS 0.24 10e9/L 013 Unknown COMPLETE BLOOD COUNT [id number] ABS BASO 0.01 10e9/L 013 Unknown COMPLETE BLOOD COUNT 6068274 RDW-SD 45.6 fL 3 Unknown COMPREHENSIVE METABOLIC 72762 AST 19 U/L 2012 Unknown COMPREHENSIVE METABOLIC 25277 ALT 28 IU/L 2012 Unknown COMPREHENSIVE METABOLIC 49856 BUN 31 MG/DL 2012 Unknown COMPREHENSIVE METABOLIC 73849 ALBUMIN 4.7 GM/DL 2012 Unknown COMPREHENSIVE METABOLIC 26793 CHLORIDE 106 MMOL/L 11/11 Unknown COMPREHENSIVE METABOLIC 03652 BILI TOT 0.5 MG/DL 2012 Unknown COMPREHENSIVE METABOLIC 52199 ALK PHOS 64 U/L 2012 Unknown COMPREHENSIVE METABOLIC 29109 SODIUM 136 MMOL/L 11/11 Unknown COMPREHENSIVE METABOLIC 67235 CREATININE 1.27 MG/DL 11/2012 Unknown COMPREHENSIVE METABOLIC 70901 CALCIUM 9.4 MG/DL 2012 Unknown COMPREHENSIVE METABOLIC 95025 POTASSIUM 4.9 MMOL/L 11/11 Unknown COMPREHENSIVE METABOLIC 21456 PROT TOT 6.7 GM/DL 2012 Unknown COMPREHENSIVE METABOLIC 38752 Glucose 108 MG/DL 2012 Unknown COMPREHENSIVE METABOLIC 94986 BICARB 21 MMOL/L 2012 Unknown COMPREHENSIVE METABOLIC 82237 ANION GAP 9 MEQ/L 2012 Unknown THYROID STIMULATING HORMONE 22530 TSH 2.572 uIU/ML 05/04/2012 Unknown COMPLETE BLOOD COUNT [id number] WBC 9.3 10e9/L 05/04/19 13 Unknown COMPLETE BLOOD COUNT [id number] RBC 4.43 10e12/L 2012 Unknown COMPLETE BLOOD COUNT [id number] HGB 14.2 g/dL 3 Unknown COMPLETE BLOOD COUNT 4151864 HCT DET 41.1 % 3 Unknown COMPLETE BLOOD COUNT 5912122 MCV 92.8 fL 3 Unknown COMPLETE BLOOD COUNT 7493642 MCH 32.1 pg 3 Unknown COMPLETE BLOOD COUNT 2313007 MCHC 34.5 g/dL 3 Unknown COMPLETE BLOOD COUNT 6224403 PLT 193 10e9/L 05/04/19 13 Unknown COMPLETE BLOOD COUNT 7604823 MPV 10.8 fL 3 Unknown COMPLETE BLOOD COUNT 2012153 SAMIR % 63.0 % 3 Unknown COMPLETE BLOOD COUNT 7595679 LY % 25.3 % 3 Unknown COMPLETE BLOOD COUNT 1037246 MON % 9.1 % 3 Unknown COMPLETE BLOOD COUNT 7589308 EOS % 2.5 % 3 Unknown COMPLETE BLOOD COUNT 3786312 BASO % 0.1 % 3 Unknown COMPLETE BLOOD COUNT 6265017 RDW 12.6 % 3 Unknown COMPLETE BLOOD COUNT 6553491 ABS SAMIR 5.86 10e9/L 013 Unknown COMPLETE BLOOD COUNT 1972156 ABS LYMPH 2.35 10e9/L 013 Unknown COMPLETE BLOOD COUNT 3834180 ABS MONO 0.85 10e9/L 013 Unknown COMPLETE BLOOD COUNT [id number] ABS EOS 0.23 10e9/L 013 Unknown COMPLETE BLOOD COUNT 6054962 ABS BASO 0.01 10e9/L 013 Unknown COMPLETE BLOOD COUNT 0570405 RDW-SD 41.2 fL 3 Unknown LIPID GROUP 37221 HDL TEST 35 MG/DL 05/04/2012 Unknown LIPID GROUP 09757 TRIG 236 MG/DL 05/04/2012 Unknown LIPID GROUP 16475 TEST LDL 64 MG/DL 05/04/2012 Unknown LIPID GROUP 23210 CHOL 146 MG/DL 05/04/2012 Unknown LIPID GROUP 71133 RCHOL/HDL 4.17 RATIO 05/04/2012 Unknow n COMPREHENSIVE METABOLIC 07885 AST 23 U/L 2012 Unknown COMPREHENSIVE METABOLIC 99393 ALT 33 IU/L 2012 Unknown COMPREHENSIVE METABOLIC 35025 BUN 16 MG/DL 2012 Unknown COMPREHENSIVE METABOLIC 50936 ALBUMIN 4.8 GM/DL 2012 Unknown COMPREHENSIVE METABOLIC 32692 CHLORIDE 104 MMOL/L 05/04 Unknown COMPREHENSIVE METABOLIC 03223 BILI TOT 0.5 MG/DL 2012 Unknown COMPREHENSIVE METABOLIC 72064 ALK PHOS 70 U/L 2012 Unknown COMPREHENSIVE METABOLIC 98158 SODIUM 138 MMOL/L 05/04 Unknown COMPREHENSIVE METABOLIC 61180 CREATININE 1.08 MG/DL 04/07 Unknown COMPREHENSIVE METABOLIC 55450 CALCIUM 9.7 MG/DL 2012 Unknown COMPREHENSIVE METABOLIC 04723 POTASSIUM 4.4 MMOL/L 05/04 Unknown COMPREHENSIVE METABOLIC 20812 PROT TOT 6.8 GM/DL 2012 Unknown COMPREHENSIVE METABOLIC 54007 Glucose 114 MG/DL 2012 Unknown COMPREHENSIVE METABOLIC 85500 BICARB 27 MMOL/L 2012 Unknown COMPREHENSIVE METABOLIC 19717 ANION GAP 7 MEQ/L 2012 Unknown FREE T4 69364 FREE T4 1.11 NG/DL 05/04/2012 Unknown GFR CALC 2821881 GFR AA >60 ML/MIN 05/04/2012 Unknown GFR CALC 7009503 GFR NON-AA >60 ML/MIN 05/04/2012 Unknown GLYCOSYLATED HEMOGLOBIN TEST 99831 A1C HPLC 42243-4 5.8 % 0 10/29/2011 Unknown COMPREHENSIVE METABOLIC 33470 AST 17 U/L 2011 Unknown COMPREHENSIVE METABOLIC 39736 ALT 21 IU/L 2011 Unknown COMPREHENSIVE METABOLIC 30790 BUN 17 MG/DL 2011 Unknown COMPREHENSIVE METABOLIC 20313 ALBUMIN 4.8 GM/DL 2011 Unknown COMPREHENSIVE METABOLIC 14714 CHLORIDE 106 MMOL/L 10/28 Unknown COMPREHENSIVE METABOLIC 97387 BILI TOT 0.6 MG/DL 2011 Unknown COMPREHENSIVE METABOLIC 35778 ALK PHOS 57 U/L 2011 Unknown COMPREHENSIVE METABOLIC 63669 SODIUM 139 MMOL/L 10/28 Unknown COMPREHENSIVE METABOLIC 56091 CREATININE 1.08 MG/DL 10/05 Unknown COMPREHENSIVE METABOLIC 11970 CALCIUM 9.6 MG/DL 2011 Unknown COMPREHENSIVE METABOLIC 32741 POTASSIUM 4.4 MMOL/L 10/28 Unknown COMPREHENSIVE METABOLIC 42164 PROT TOT 6.9 GM/DL 2011 Unknown COMPREHENSIVE METABOLIC 27592 Glucose 104 MG/DL 2011 Unknown COMPREHENSIVE METABOLIC 51732 BICARB 25 MMOL/L 2011 Unknown COMPREHENSIVE METABOLIC 11570 ANION GAP 8 MEQ/L 2011 Unknown LIPID GROUP 75750 HDL TEST 39 MG/DL 10/29/2011 Unknown LIPID GROUP 04344 TRIG 176 MG/DL 10/29/2011 Unknown LIPID GROUP 95413 TEST LDL 70 MG/DL 10/29/2011 Unknown LIPID GROUP 15099 CHOL 144 MG/DL 10/29/2011 Unknown LIPID GROUP 74033 RCHOL/HDL 3.69 RATIO 10/29/2011 Unknow n GFR CALC 2217712 GFR AA >60 ML/MIN 10/29/2011 Unknown GFR CALC 0173317 GFR NON-AA >60 ML/MIN 10/29/2011 Unknown GFR CALC 0738872 GFR AA >60 ML/MIN 03/14/2011 Unknown GFR CALC 4955842 GFR NON-AA >60 ML/MIN 03/14/2011 Unknown GLYCOSYLATED HEMOGLOBIN TEST 87296 A1C HPLC 09646-6 5.7 % 1 05/15/2010 Unknown COMPREHENSIVE METABOLIC 79235 AST 18 U/L 2010 Unknown COMPREHENSIVE METABOLIC 12372 ALT 25 IU/L 2010 Unknown COMPREHENSIVE METABOLIC 58622 BUN 15 MG/DL 2010 Unknown COMPREHENSIVE METABOLIC 35066 ALBUMIN 4.6 GM/DL 2010 Unknown COMPREHENSIVE METABOLIC 93508 CHLORIDE 107 MMOL/L 03/14 Unknown COMPREHENSIVE METABOLIC 89263 BILI TOT 0.6 MG/DL 2010 Unknown COMPREHENSIVE METABOLIC 47359 ALK PHOS 54 U/L 2010 Unknown COMPREHENSIVE METABOLIC 46279 SODIUM 140 MMOL/L 03/14 Unknown COMPREHENSIVE METABOLIC 63253 CREATININE 1.02 MG/DL 12/2010 Unknown COMPREHENSIVE METABOLIC 70719 CALCIUM 9.4 MG/DL 2010 Unknown COMPREHENSIVE METABOLIC 29235 POTASSIUM 4.6 MMOL/L 03/14 Unknown COMPREHENSIVE METABOLIC 03475 PROT TOT 7.0 GM/DL 2010 Unknown COMPREHENSIVE METABOLIC 31080 Glucose 107 MG/DL 2010 Unknown COMPREHENSIVE METABOLIC 12159 BICARB 28 MMOL/L 2010 Unknown COMPREHENSIVE METABOLIC 06118 ANION GAP 5 MEQ/L 2010 Unknown LIPID GROUP 11749 HDL TEST 39 MG/DL 03/14/2011 Unknown LIPID GROUP 41378 TRIG 157 MG/DL 03/14/2011 Unknown LIPID GROUP 63289 TEST LDL 66 MG/DL 03/14/2011 Unknown LIPID GROUP 25837 CHOL 136 MG/DL 03/14/2011 Unknown LIPID GROUP 43798 RCHOL/HDL 3.49 RATIO 03/14/2011 Unknow n GFR CALC 9807604 GFR AA >60 ML/MIN 11/11/2010 Unknown GFR CALC 5446173 GFR NON-AA >60 ML/MIN 11/11/2010 Unknown LIPID GROUP 48845 HDL TEST 39 MG/DL 11/11/2010 Unknown LIPID GROUP 43204 TRIG 212 MG/DL 11/11/2010 Unknown LIPID GROUP 41456 TEST LDL 67 MG/DL 11/11/2010 Unknown LIPID GROUP 59940 CHOL 148 MG/DL 11/11/2010 Unknown LIPID GROUP 51575 RCHOL/HDL 3.79 RATIO 11/11/2010 Unknow n COMPREHENSIVE METABOLIC 44011 AST 17 U/L 2010 Unknown COMPREHENSIVE METABOLIC 96929 ALT 21 IU/L 2010 Unknown COMPREHENSIVE METABOLIC 75469 BUN 16 MG/DL 2010 Unknown COMPREHENSIVE METABOLIC 89203 ALBUMIN 4.6 GM/DL 2010 Unknown COMPREHENSIVE METABOLIC 65997 CHLORIDE 106 MMOL/L 11/11 Unknown COMPREHENSIVE METABOLIC 53308 BILI TOT 0.5 MG/DL 2010 Unknown COMPREHENSIVE METABOLIC 21039 ALK PHOS 61 U/L 2010 Unknown COMPREHENSIVE METABOLIC 70937 SODIUM 139 MMOL/L 11/11 Unknown COMPREHENSIVE METABOLIC 12224 CREATININE 1.00 MG/DL 11/2010 Unknown COMPREHENSIVE METABOLIC 98973 CALCIUM 9.5 MG/DL 2010 Unknown COMPREHENSIVE METABOLIC 39759 POTASSIUM 4.5 MMOL/L 11/11 Unknown COMPREHENSIVE METABOLIC 92024 PROT TOT 6.9 GM/DL 2010 Unknown COMPREHENSIVE METABOLIC 15089 Glucose 111 MG/DL 2010 Unknown COMPREHENSIVE METABOLIC 25106 BICARB 26 MMOL/L 2010 Unknown COMPREHENSIVE METABOLIC 63986 ANION GAP 7 MEQ/L 2010 Unknown HEMOGLOBIN A1C (GLYCOSYLATED) 51032 A1C HPLC 22866-9 5.6 % 07/24/2010 Unknown GFR CALC 8585169 GFR AA >60 ML/MIN 07/23/2010 Unknown GFR CALC 1001540 GFR NON-AA >60 ML/MIN 07/23/2010 Unknown COMPREHENSIVE METABOLIC 21984 AST 19 U/L 2010 Unknown COMPREHENSIVE METABOLIC 87882 ALT 33 IU/L 2010 Unknown COMPREHENSIVE METABOLIC 96165 BUN 14 MG/DL 2010 Unknown COMPREHENSIVE METABOLIC 91067 ALBUMIN 4.7 GM/DL 2010 Unknown COMPREHENSIVE METABOLIC 63287 CHLORIDE 107 MMOL/L 07/23 Unknown COMPREHENSIVE METABOLIC 62044 BILI TOT 0.4 MG/DL 2010 Unknown COMPREHENSIVE METABOLIC 85386 ALK PHOS 80 U/L 2010 Unknown COMPREHENSIVE METABOLIC 15177 SODIUM 141 MMOL/L 07/23 Unknown COMPREHENSIVE METABOLIC 23768 CREATININE 0.97 MG/DL 07/05 Unknown COMPREHENSIVE METABOLIC 73259 CALCIUM 9.5 MG/DL 2010 Unknown COMPREHENSIVE METABOLIC 37569 POTASSIUM 4.1 MMOL/L 07/23 Unknown COMPREHENSIVE METABOLIC 62906 PROT TOT 6.8 GM/DL 2010 Unknown COMPREHENSIVE METABOLIC 99239 Glucose 120 MG/DL 2010 Unknown COMPREHENSIVE METABOLIC 92461 BICARB 26 MMOL/L 2010 Unknown COMPREHENSIVE METABOLIC 62506 ANION GAP 8 MEQ/L 2010 Unknown LIPID GROUP 78207 HDL TEST 41 MG/DL 07/23/2010 Unknown LIPID GROUP 57289 TRIG 175 MG/DL 07/23/2010 Unknown LIPID GROUP 77168 TEST LDL 72 MG/DL 07/23/2010 Unknown LIPID GROUP 79486 CHOL 148 MG/DL 07/23/2010 Unknown LIPID GROUP 47063 RCHOL/HDL 3.61 RATIO 07/23/2010 Unknow n PSA FREE AND TOTAL 30901|38544 % FREE PSA FOOTNOTE % 011 Unknown PSA FREE AND TOTAL 88036|02130 XPSA TOTAL 0.83 NG/ML 011 Unknown PSA FREE AND TOTAL 27611|17556 XPSA FREE 0.13 NG/ML 04/26/19 11 Unknown VITAMIN D TOTAL (25 HYDROXY) 82197 VIT D TOTL 26 NG/ML 04/22/2010 Unknown TESTOSTERONE TOTAL 14251 TESTOS TO 387 NG/DL 04/19/2010 Unknown GFR CALC 1673314 GFR AA >60 ML/MIN 04/19/2010 Unknown GFR CALC 8238039 GFR NON-AA >60 ML/MIN 04/19/2010 Unknown COMPLETE BLOOD COUNT 54825 WBC 7.0 10e9/L 04/19/19 11 Unknown COMPLETE BLOOD COUNT 89207 RBC 5.07 10e12/L 2010 Unknown COMPLETE BLOOD COUNT 55024 HGB 15.6 g/dL 1 Unknown COMPLETE BLOOD COUNT 11078 HCT DET 46.2 % 1 Unknown COMPLETE BLOOD COUNT 77790 MCV 91.1 fL 1 Unknown COMPLETE BLOOD COUNT 20565 MCH 30.8 pg 1 Unknown COMPLETE BLOOD COUNT 74246 MCHC 33.8 g/dL 1 Unknown COMPLETE BLOOD COUNT 54884 PLT 205 10e9/L 04/19/19 11 Unknown COMPLETE BLOOD COUNT 03290 MPV 11.1 fL 1 Unknown COMPLETE BLOOD COUNT 59752 SAMIR % 62.4 % 1 Unknown COMPLETE BLOOD COUNT 13355 LY % 28.5 % 1 Unknown COMPLETE BLOOD COUNT 09594 MON % 6.9 % 1 Unknown COMPLETE BLOOD COUNT 46348 EOS % 2.1 % 1 Unknown COMPLETE BLOOD COUNT 56006 BASO % 0.1 % 1 Unknown COMPLETE BLOOD COUNT 41339 RDW 13.4 % 1 Unknown COMPLETE BLOOD COUNT 54014 ABS SAMIR 4.37 10e9/L 011 Unknown COMPLETE BLOOD COUNT 94502 ABS LYMPH 2.00 10e9/L 011 Unknown COMPLETE BLOOD COUNT 63323 ABS MONO 0.48 10e9/L 011 Unknown COMPLETE BLOOD COUNT 01760 ABS EOS 0.15 10e9/L 011 Unknown COMPLETE BLOOD COUNT 13403 ABS BASO 0.01 10e9/L 011 Unknown COMPLETE BLOOD COUNT 00817 RDW-SD 43.8 fL 1 Unknown LIPID GROUP 22762 HDL TEST 39 MG/DL 04/19/2010 Unknown LIPID GROUP 95190 TRIG 244 MG/DL 04/19/2010 Unknown LIPID GROUP 46248 TEST LDL 168 MG/DL 04/19/2010 Unknown LIPID GROUP 55460 CHOL 256 MG/DL 04/19/2010 Unknown LIPID GROUP 44145 RCHOL/HDL 6.56 RATIO 04/19/2010 Unknow n COMPREHENSIVE METABOLIC 85350 AST 28 U/L 2010 Unknown COMPREHENSIVE METABOLIC 05162 ALT 46 IU/L 2010 Unknown COMPREHENSIVE METABOLIC 02683 BUN 14 MG/DL 2010 Unknown COMPREHENSIVE METABOLIC 27945 ALBUMIN 4.9 GM/DL 2010 Unknown COMPREHENSIVE METABOLIC 03704 CHLORIDE 104 MMOL/L 04/19 Unknown COMPREHENSIVE METABOLIC 09634 BILI TOT 0.8 MG/DL 2010 Unknown COMPREHENSIVE METABOLIC 18083 ALK PHOS 71 U/L 2010 Unknown COMPREHENSIVE METABOLIC 44401 SODIUM 139 MMOL/L 04/19 Unknown COMPREHENSIVE METABOLIC 72986 CREATININE 1.06 MG/DL 04/06 Unknown COMPREHENSIVE METABOLIC 18178 CALCIUM 9.9 MG/DL 2010 Unknown COMPREHENSIVE METABOLIC 52627 POTASSIUM 4.3 MMOL/L 04/19 Unknown COMPREHENSIVE METABOLIC 10907 PROT TOT 7.2 GM/DL 2010 Unknown COMPREHENSIVE METABOLIC 80518 Glucose 99 MG/DL 2010 Unknown COMPREHENSIVE METABOLIC 80249 BICARB 28 MMOL/L 2010 Unknown COMPREHENSIVE METABOLIC 54530 ANION GAP 7 MEQ/L 2010 Unknown FREE T4 78191 FREE T4 1.26 NG/DL 04/19/2010 Unknown Procedures Procedure Codes Date FLU VACC PRSV FREE INC ANTIG 65 AND OLDER CPT-4: 25774 01/26/2019 FLU VACC PRSV FREE INC ANTIG 65 AND OLDER CPT-4: 11957 01/26/2019 ADMIN INFLUENZA VIRUS VAC CPT-4: G0008 01/26/2019 ROUTINE VENIPUNCTURE CPT-4: 74663 01/26/2019 COMPREHEN METABOLIC PANEL CPT-4: 74494 01/26/2019 COMPLETE CBC W/AUTO DIFF WBC CPT-4: 69549 01/26/2019 LIPID PANEL CPT-4: 21112 01/26/2019 A1C HPLC CPT-4: 94176 01/26/2019 ROUTINE VENIPUNCTURE CPT-4: 61692 09/30/2018 METABOLIC PANEL TOTAL CA CPT-4: 05601 09/30/2018 URINALYSIS NONAUTO W/O SCOPE CPT-4: 82450 08/19/2018 URINE CULTURE/ COLONY COUNT CPT-4: 21282 08/19/2018 MICROALBUMIN QUANTITATIVE CPT-4: 94925 08/19/2018 ROUTINE VENIPUNCTURE CPT-4: 54744 08/16/2018 ASSAY THYROID STIM HORMONE CPT-4: 04139 08/16/2018 COMPREHEN METABOLIC PANEL CPT-4: 19248 08/16/2018 COMPLETE CBC W/AUTO DIFF WBC CPT-4: 85011 08/16/2018 LIPID PANEL CPT-4: 14445 08/16/2018 A1C HPLC CPT-4: 38798 08/16/2018 LIPID PANEL CPT-4: 23012 05/05/2018 COMPREHEN METABOLIC PANEL CPT-4: 55672 05/05/2018 ROUTINE VENIPUNCTURE CPT-4: 32856 05/05/2018 A1C HPLC CPT-4: 31399 05/05/2018 COMPLETE CBC W/AUTO DIFF WBC CPT-4: 84415 05/05/2018 ASSAY THYROID STIM HORMONE CPT-4: 65295 05/05/2018 MICROALBUMIN QUANTITATIVE CPT-4: 93789 01/19/2018 PRESCRIP TRANSMIT VIA ERX SY CPT-4: G8553 01/19/2018 ROUTINE VENIPUNCTURE CPT-4: 71112 01/13/2018 COMPREHEN METABOLIC PANEL CPT-4: 56952 01/13/2018 A1C HPLC CPT-4: 66155 01/13/2018 LIPID PANEL CPT-4: 18466 01/13/2018 ASSAY OF PSA TOTAL CPT-4: 11031 01/13/2018 ASSAY THYROID STIM HORMONE CPT-4: 68318 01/13/2018 ROUTINE VENIPUNCTURE CPT-4: 83485 10/06/2017 COMPREHEN METABOLIC PANEL CPT-4: 05664 10/06/2017 COMPLETE CBC W/AUTO DIFF WBC CPT-4: 03859 10/06/2017 LIPID PANEL CPT-4: 30154 10/06/2017 A1C HPLC CPT-4: 71478 10/06/2017 VITAMIN B-12 CPT-4: 90806 10/06/2017 DESTRUCT PREMALG LESION (Cryosurgery) CPT-4: 49128 DESTRUCT PREMALG LES 2-14 CPT-4: 66351 04/23/2017 PRESCRIP TRANSMIT VIA ERX SY CPT-4: G8553 03/11/2017 ROUTINE VENIPUNCTURE CPT-4: 33648 03/05/2017 ASSAY OF FREE THYROXINE CPT-4: 93321 03/05/2017 ASSAY THYROID STIM HORMONE CPT-4: 40334 03/05/2017 COMPREHEN METABOLIC PANEL CPT-4: 67058 03/05/2017 COMPLETE CBC W/AUTO DIFF WBC CPT-4: 43863 03/05/2017 LIPID PANEL CPT-4: 24569 03/05/2017 A1C HPLC CPT-4: 81923 03/05/2017 ROUTINE VENIPUNCTURE CPT-4: 35452 06/16/2016 ASSAY OF FREE THYROXINE CPT-4: 04650 06/16/2016 ASSAY THYROID STIM HORMONE CPT-4: 56691 06/16/2016 COMPREHEN METABOLIC PANEL CPT-4: 98124 06/16/2016 COMPLETE CBC W/AUTO DIFF WBC CPT-4: 17119 06/16/2016 LIPID PANEL CPT-4: 60185 06/16/2016 A1C HPLC CPT-4: 16403 06/16/2016 ROUTINE VENIPUNCTURE CPT-4: 90792 03/06/2016 ASSAY OF FREE THYROXINE CPT-4: 46485 03/06/2016 ASSAY THYROID STIM HORMONE CPT-4: 41496 03/06/2016 COMPREHEN METABOLIC PANEL CPT-4: 18804 03/06/2016 COMPLETE CBC W/AUTO DIFF WBC CPT-4: 63619 03/06/2016 LIPID PANEL CPT-4: 78714 03/06/2016 A1C HPLC CPT-4: 68851 03/06/2016 PRESCRIP TRANSMIT VIA ERX SY CPT-4: G8553 09/10/2015 PNEUMOCOCCAL VACC 23 ROSANNE IM CPT-4: 53568 09/06/2015 ADMIN PNEUMOCOCCAL VACCINE CPT-4: G0009 09/06/2015 ROUTINE VENIPUNCTURE CPT-4: 34120 08/31/2015 COMPREHEN METABOLIC PANEL CPT-4: 41087 08/31/2015 COMPLETE CBC W/AUTO DIFF WBC CPT-4: 62454 08/31/2015 LIPID PANEL CPT-4: 99577 08/31/2015 ASSAY OF PSA TOTAL CPT-4: 97520 08/31/2015 A1C HPLC CPT-4: 12484 08/31/2015 ASSAY OF FREE THYROXINE CPT-4: 15565 08/31/2015 ASSAY THYROID STIM HORMONE CPT-4: 57148 08/31/2015 PRESCRIP TRANSMIT VIA ERX SY CPT-4: G8553 06/29/2015 FLU VACC PRSV FREE INC ANTIG 65 AND OLDER CPT-4: 01986 01/17/2015 PNEUMOCOCCAL VACC 13 ROSANNE IM CPT-4: 04900 01/17/2015 ADMIN INFLUENZA VIRUS VAC CPT-4: G0008 01/17/2015 ADMIN PNEUMOCOCCAL VACCINE CPT-4: G0009 01/17/2015 DESTRUCT PREMALG LESION (Cryosurgery) CPT-4: 37346 PRESCRIP TRANSMIT VIA ERX SY CPT-4: G8553 01/17/2015 ROUTINE VENIPUNCTURE CPT-4: 21225 01/12/2015 COMPREHEN METABOLIC PANEL CPT-4: 59647 01/12/2015 COMPLETE CBC W/AUTO DIFF WBC CPT-4: 28273 01/12/2015 LIPID PANEL CPT-4: 68396 01/12/2015 A1C HPLC CPT-4: 45052 01/12/2015 DESTRUCT PREMALG LESION (Cryosurgery) CPT-4: 82472 ROUTINE VENIPUNCTURE CPT-4: 93466 08/15/2014 COMPREHEN METABOLIC PANEL CPT-4: 11378 08/15/2014 COMPLETE CBC W/AUTO DIFF WBC CPT-4: 31029 08/15/2014 LIPID PANEL CPT-4: 19437 08/15/2014 A1C HPLC CPT-4: 21855 08/15/2014 ASSAY OF PSA TOTAL CPT-4: 96614 08/15/2014 ASSAY OF FREE THYROXINE CPT-4: 45505 08/15/2014 ASSAY THYROID STIM HORMONE CPT-4: 44686 08/15/2014 ROUTINE VENIPUNCTURE CPT-4: 61500 12/14/2013 ASSAY OF FREE THYROXINE CPT-4: 34693 12/14/2013 ASSAY THYROID STIM HORMONE CPT-4: 10025 12/14/2013 COMPREHEN METABOLIC PANEL CPT-4: 54416 12/14/2013 COMPLETE CBC W/AUTO DIFF WBC CPT-4: 47278 12/14/2013 LIPID PANEL CPT-4: 75120 12/14/2013 A1C HPLC CPT-4: 04315 12/14/2013 ROUTINE VENIPUNCTURE CPT-4: 37977 06/08/2013 ASSAY OF FREE THYROXINE CPT-4: 83907 06/08/2013 ASSAY THYROID STIM HORMONE CPT-4: 04511 06/08/2013 COMPREHEN METABOLIC PANEL CPT-4: 23647 06/08/2013 COMPLETE CBC W/AUTO DIFF WBC CPT-4: 84850 06/08/2013 LIPID PANEL CPT-4: 50133 06/08/2013 A1C HPLC CPT-4: 09669 06/08/2013 ROUTINE VENIPUNCTURE CPT-4: 52196 11/11/2012 COMPREHEN METABOLIC PANEL CPT-4: 65532 11/11/2012 COMPLETE CBC W/AUTO DIFF WBC CPT-4: 12790 11/11/2012 LIPID PANEL CPT-4: 19279 11/11/2012 A1C GLYCOSYLATED HEMOGLOBIN TEST CPT-4: 36585 013 ASSAY THYROID STIM HORMONE CPT-4: 88346 11/11/2012 ROUTINE VENIPUNCTURE CPT-4: 07611 05/04/2012 ASSAY OF FREE THYROXINE CPT-4: 28681 05/04/2012 ASSAY THYROID STIM HORMONE CPT-4: 26643 05/04/2012 COMPREHEN METABOLIC PANEL CPT-4: 39908 05/04/2012 COMPLETE CBC W/AUTO DIFF WBC CPT-4: 11114 05/04/2012 LIPID PANEL CPT-4: 66185 05/04/2012 DESTRUCT PREMALG LESION (Cryosurgery) CPT-4: 63959 DESTRUCT PREMALG LES 2-14 CPT-4: 69169 03/02/2012 ROUTINE VENIPUNCTURE CPT-4: 55774 10/29/2011 COMPREHEN METABOLIC PANEL CPT-4: 98381 10/29/2011 LIPID PANEL CPT-4: 20521 10/29/2011 A1C GLYCOSYLATED HEMOGLOBIN TEST CPT-4: 63171 012 ROUTINE VENIPUNCTURE CPT-4: 91855 07/29/2011 COMPREHEN METABOLIC PANEL CPT-4: 64052 07/29/2011 LIPID PANEL CPT-4: 41325 07/29/2011 A1C GLYCOSYLATED HEMOGLOBIN TEST CPT-4: 23243 012 ROUTINE VENIPUNCTURE CPT-4: 07637 03/14/2011 COMPREHEN METABOLIC PANEL CPT-4: 07749 03/14/2011 LIPID PANEL CPT-4: 82063 03/14/2011 A1C GLYCOSYLATED HEMOGLOBIN TEST CPT-4: 15839 011 ROUTINE VENIPUNCTURE CPT-4: 28739 11/11/2010 COMPREHEN METABOLIC PANEL CPT-4: 02668 11/11/2010 LIPID PANEL CPT-4: 01470 11/11/2010 URINE CULTURE/ COLONY COUNT CPT-4: 77525 11/11/2010 URINALYSIS NONAUTO W/O SCOPE CPT-4: 45153 10/29/2010 URINE CULTURE/ COLONY COUNT CPT-4: 22567 10/29/2010 LIPID PANEL CPT-4: 21137 07/23/2010 COMPREHEN METABOLIC PANEL CPT-4: 35610 07/23/2010 ROUTINE VENIPUNCTURE CPT-4: 24803 07/23/2010 ROUTINE VENIPUNCTURE CPT-4: 74238 04/26/2010 PSA FREE AND TOTAL CPT-4: 90631|32490 04/26/2010 OCCULT BLOOD FECES CPT-4: 12579 04/24/2010 ROUTINE VENIPUNCTURE CPT-4: 65356 04/19/2010 COMPLETE CBC W/AUTO DIFF WBC CPT-4: 96255 04/19/2010 COMPREHEN METABOLIC PANEL CPT-4: 81675 04/19/2010 LIPID PANEL CPT-4: 79489 04/19/2010 TESTOSTERONE TOTAL - MALE CPT-4: 63933 04/19/2010 ASSAY THYROID STIM HORMONE CPT-4: 86473 04/19/2010 ASSAY OF FREE THYROXINE CPT-4: 22568 04/19/2010 VITAMIN D TOTAL (25 HYDROXY) CPT-4: 71228 04/19/2010 Vital Signs Date Vital 01/31/2019 Blood [...] 1: 112/70 Code: 8480-6 BMI: 28.9 Code: 93865-8 Heart Rate 1: 60 bpm Height: 6'3" Respiratory Rate: 20 bpm SpO2: 95% Tempera ture: 36.6 (C) / 97.9 (F) Weight: 231 lbs 01/19/2018 Blood Pressure 1: 150/82 Code: 8480-6 Heart Rate 1: 63 bpm Respiratory Rate: 18 bpm SpO2: 98% Temperature: 36.0 (C) / 96.8 (F) We ight: 225 lbs 10/15/2017 Blood Pressure 1: 126/82 Code: 8480-6 BMI: 27.9 Code: 52049-9 Heart Rate 1: 64 bpm Height: 6'3" Respiratory Rate: 20 bpm SpO2: 96% Tempera ture: 36.7 (C) / 98.1 (F) Weight: 223 lbs 04/23/2017 Blood Pressure 1: 136/74 Code: 8480-6 BMI: 28.7 Code: 36253-3 Heart Rate 1: 76 bpm Height: 6'3" Respiratory Rate: 20 bpm Temperature: 37 .0 (C) / 98.6 (F) Weight: 230 lbs 03/11/2017 Blood Pressure 1: 136/66 Code: 8480-6 BMI: 28.6 Code: 21212-7 Heart Rate 1: 60 bpm Height: 6'3" Respiratory Rate: 20 bpm Temperature: 36 .7 (C) / 98.1 (F) Weight: 229 lbs 07/09/2016 Blood Pressure 1: 132/80 Code: 8480-6 BMI: 27.7 Code: 68375-6 Heart Rate 1: 64 bpm Height: 6'3" Respiratory Rate: 20 bpm SpO2: 96% Tempera ture: 36.9 (C) / 98.4 (F) Weight: 222 lbs 03/10/2016 Blood Pressure 1: 134/78 Code: 8480-6 BMI: 28.5 Code: 50694-3 Heart Rate 1: 60 bpm Height: 6'3" Respiratory Rate: 20 bpm SpO2: 96% Tempera ture: 36.7 (C) / 98.1 (F) Weight: 228 lbs 09/12/2015 Blood Pressure 1: 136 Code: 8480-6 Heart Rate 1: 84 bpm Height: Respiratory Rate: 24 bpm SpO2: 97% Temperature: 36.4 (C) / 97.6 (F) We ight: 09/10/2015 Blood Pressure 1: 124/76 Code: 8480-6 BMI: 28.5 Code: 49676-2 Heart Rate 1: 76 bpm Height: 6'3" Respiratory Rate: 24 bpm SpO2: 97% Tempera ture: 36.4 (C) / 97.6 (F) Weight: 228 lbs 09/06/2015 Blood Pressure 1: 12482 Code: 8480-6 BMI: 29.0 Code: 36794-8 Heart Rate 1: 66 bpm Height: 6'3" Respiratory Rate: 20 bpm SpO2: 97% Tempera ture: 36.4 (C) / 97.6 (F) Weight: 232 lbs 06/29/2015 Blood Pressure 1: 124 Code: 8480-6 Heart Rate 1: 88 bpm Height: Respiratory Rate: 20 bpm Temperature: 36.7 (C) / 98.1 (F) Weight: 01/17/2015 Blood Pressure 1: 124 Code: 8480-6 BMI: 27.7 Code: 02562-3 Heart Rate 1: 76 bpm Height: 6'3" Respiratory Rate: 20 bpm Temperature: 36 .6 (C) / 97.8 (F) Weight: 222 lbs 09/19/2014 Blood Pressure 1: 128/80 Code: 8480-6 BMI: 27.4 Code: 24444-2 Heart Rate 1: 64 bpm Height: 6'3" Respiratory Rate: 20 bpm Temperature: 36 .4 (C) / 97.6 (F) Weight: 219 lbs 10/17/2013 Blood Pressure 1: 116/70 Code: 8480-6 Heart Rate 1: 88 bpm Respiratory Rate: 20 bpm Temperature: 36.9 (C) / 98.4 (F) Weight: 220 lbs 09/23/2013 Blood Pressure 1: 124/80 Code: 8480-6 BMI: 28.7 Code: 36359-2 Heart Rate 1: 76 bpm Height: 6'3" Respiratory Rate: 20 bpm Temperature: 36 .8 (C) / 98.2 (F) Weight: 230 lbs 07/22/2013 Blood Pressure 1: 128/70 Code: 8480-6 He art Rate 1: 78 bpm 06/20/2013 Blood Pressure 1: 144/86 Code: 8480-6 BMI: 28.7 Code: 35261-6 Heart Rate 1: 92 bpm Height: 6'3" Respiratory Rate: 20 bpm Temperature: 36 .4 (C) / 97.6 (F) Weight: 230 lbs 11/25/2012 Blood Pressure 1: 128/80 Code: 8480-6 BMI: 27.5 Code: 69780-3 Heart Rate 1: 92 bpm Height: 6'3" Respiratory Rate: 20 bpm Temperature: 36 .8 (C) / 98.3 (F) Weight: 220 lbs 08/27/2012 Blood Pressure 1: 142/80 Code: 8480-6 BMI: 27.7 Code: 63674-5 Heart Rate 1: 76 bpm Height: 6'3" Respiratory Rate: 20 bpm Temperature: 36 .8 (C) / 98.3 (F) Weight: 222 lbs 05/11/2012 Blood Pressure 1: 136/80 Code: 8480-6 BMI: 27.7 Code: 89143-3 Heart Rate 1: 76 bpm Height: 6'3" Respiratory Rate: 20 bpm Temperature: 36 .8 (C) / 98.3 (F) Weight: 222 lbs 03/02/2012 Blood Pressure 1: 136/70 Code: 8480-6 BMI: 28.0 Code: 00517-2 Heart Rate 1: 80 bpm Height: 6'3" Respiratory Rate: 20 bpm Temperature: 36 .6 (C) / 97.8 (F) Weight: 224 lbs 12/11/2011 Blood Pressure 1: 142/80 Code: 8480-6 BMI: 27.1 Code: 75739-9 Heart Rate 1: 84 bpm Height: 6'3" Respiratory Rate: 20 bpm Temperature: 36 .9 (C) / 98.4 (F) Weight: 217 lbs 08/14/2011 Blood Pressure 1: 130/82 Code: 8480-6 He art Rate 1: 64 bpm 07/29/2011 Blood Pressure 1: 132/64 Code: 8480-6 BMI: 26.7 Code: 03286-1 Heart Rate 1: 72 bpm Height: 6'3" [...] 1: 142/88 Code: 8480-6 BMI: 26.4 Code: 70418-5 Heart Rate 1: 80 bpm Height: 6'3" [...] labs Encounters Encounter Performer Location Codes Date ([id number]) OFFICE/OUTPATIENT VISIT EST Diagnosis: Essential (primary) hypertension[ICD10: I10] Diagnosis: Type 2 diabetes mellitus without complications[ICD10: E11.9] Diagnosis: Mixed hyperlipidemia[ICD10: E78.2] Najma GODINEZ [employer] CPT-4: 85144 01/31/2019 ([id number]) NURSE/OUTPATIENT VISIT EST Diagnosis: Mixed hyperlipidemia[ICD10: E78.2] Diagnosis: Type 2 diabetes mellitus without complications[ICD10: E11.9] Diagnosis: Essential (primary) hypertension[ICD10: I10] Diagnosis: Chronic kidney disease, unspecified[ICD10: N18.9] Najma MCARTHUR [employer] [facility] CPT-4: 59731 01/26/2019 ([id number]) NURSE/OUTPATIENT VISIT EST Diagnosis: Chronic kidney disease, unspecified[ICD10: N18.9] Diagnosis: Essential (primary) hypertension[ICD10: I10] Najma OG DO [facility] CPT-4: 60215 09/30/2018 ([id number]) OFFICE/OUTPATIENT VISIT EST Diagnosis: Essential (primary) hypertension[ICD10: I10] Diagnosis: Type 2 diabetes mellitus without complications[ICD10: E11.9] Diagnosis: Mixed hyperlipidemia[ICD10: E78.2] Diagnosis: Unspecified kidney failure[ICD10: N19] Najma OG [facility] CPT-4: 47667 08/19/2018 ([id number]) NURSE/OUTPATIENT VISIT EST Diagnosis: Essential (primary) hypertension[ICD10: I10] Diagnosis: Type 1 diabetes mellitus with unspecified complications[ICD10: E10.8] Diagnosis: Mixed hyperlipidemia[ICD10: E78.2] Najma ABBOTTHARPALEVELINA OG [facility] CPT-4: 76701 08/16/2018 ([id number]) OFFICE/OUTPATIENT VISIT EST Diagnosis: Essential (primary) hypertension[ICD10: I10] Diagnosis: Type 2 diabetes mellitus without complications[ICD10: E11.9] Diagnosis: Mixed hyperlipidemia[ICD10: E78.2] Najma OG [facility] CPT-4: 43709 05/10/2018 ([id number]) NURSE/OUTPATIENT VISIT EST Diagnosis: Essential (primary) hypertension[ICD10: I10] Diagnosis: Mixed hyperlipidemia[ICD10: E78.2] Diagnosis: Type 1 diabetes mellitus with unspecified complications[ICD10: E10.8] Najma MANUELLINE Matilda OG [facility] CPT-4: 69217 05/05/2018 ([id number]) OFFICE/OUTPATIENT VISIT EST Diagnosis: Type 2 diabetes mellitus without complications[ICD10: E11.9] Diagnosis: Mixed hyperlipidemia[ICD10: E78.2] Diagnosis: Nicotine dependence, unspecified, uncomplicated[ICD10: F17.200] Diagnosis: Essential (primary) hypertension[ICD10: I10] Najma Orelane OG [facility] CPT-4: 25477 01/19/2018 ([id number]) NURSE/OUTPATIENT VISIT EST Diagnosis: Type 1 diabetes mellitus with unspecified complications[ICD10: E10.8] Diagnosis: Essential (primary) hypertension[ICD10: I10] Diagnosis: Male erectile disorder[ICD10: F52.21] Diagnosis: Encounter for screening for malignant neoplasm of prostate[ICD10: Z12.5] Najma OG [facility] CPT-4: 77821 01/13/2018 ([id number]) OFFICE/OUTPATIENT VISIT EST Diagnosis: Type 2 diabetes mellitus without complications[ICD10: E11.9] Diagnosis: Essential (primary) hypertension[ICD10: I10] Diagnosis: Mixed hyperlipidemia[ICD10: E78.2] Najma OG [facility] CPT-4: 33899 10/15/2017 ([id number]) NURSE/OUTPATIENT VISIT EST Diagnosis: Type 2 diabetes mellitus without complications[ICD10: E11.9] Diagnosis: Mixed hyperlipidemia[ICD10: E78.2] Diagnosis: Essential (primary) hypertension[ICD10: I10] Diagnosis: Glossitis[ICD10: K14.0] Najma THAKKAR [facility] CPT-4: 13826 10/06/2017 ([id number]) OFFICE/OUTPATIENT VISIT EST Diagnosis: Type 2 diabetes mellitus without complications[ICD10: E11.9] Diagnosis: Mixed hyperlipidemia[ICD10: E78.2] Diagnosis: Essential (primary) hypertension[ICD10: I10] Najma OG [facility] CPT-4: 22100 03/11/2017 ([id number]) OFFICE/OUTPATIENT VISIT EST Diagnosis: Type 1 diabetes mellitus with unspecified complications[ICD10: E10.8] Diagnosis: Mixed hyperlipidemia[ICD10: E78.2] Diagnosis: Essential (primary) hypertension[ICD10: I10] Diagnosis: Other fatigue[ICD10: R53.83] Najma OG [facility] CPT-4: 58917 03/05/2017 ([id number]) OFFICE/OUTPATIENT VISIT EST Diagnosis: Type 2 diabetes mellitus without complications[ICD10: E11.9] Diagnosis: Mixed hyperlipidemia[ICD10: E78.2] Diagnosis: Essential (primary) hypertension[ICD10: I10] Diagnosis: Nicotine dependence, unspecified, uncomplicated[ICD10: F17.200] Najma OG DO [facility] CPT-4: 96158 07/09/2016 ([id number]) OFFICE/OUTPATIENT VISIT EST Diagnosis: Type 1 diabetes mellitus with unspecified complications[ICD10: E10.8] Diagnosis: Mixed hyperlipidemia[ICD10: E78.2] Diagnosis: Essential (primary) hypertension[ICD10: I10] Najma OG DO [facility] CPT-4: 49813 06/16/2016 ([id number]) OFFICE/OUTPATIENT VISIT EST Diagnosis: Type 2 diabetes mellitus without complications[ICD10: E11.9] Diagnosis: Mixed hyperlipidemia[ICD10: E78.2] Diagnosis: Essential (primary) hypertension[ICD10: I10] Najma OG DO [facility] CPT-4: 61032 03/10/2016 ([id number]) OFFICE/OUTPATIENT VISIT EST Diagnosis: Type 1 diabetes mellitus with unspecified complications[ICD10: E10.8] Diagnosis: Mixed hyperlipidemia[ICD10: E78.2] Diagnosis: Essential (primary) hypertension[ICD10: I10] Najma OG DO [facility] CPT-4: 24845 03/06/2016 ([id number]) OFFICE/OUTPATIENT VISIT EST Diagnosis: Bitten or stung by nonvenomous insect and other nonvenomous arthropods, subsequent encounter[ICD10: W57.XXXD] Diagnosis: Insect bite (nonvenomous), right thigh, subsequent encounter[ICD10: S70.361D] Barbaradale Brower NAJMA OG [facility] CPT-4: 01288 11/2015 ([id number]) OFFICE/OUTPATIENT VISIT EST Diagnosis: Bitten or stung by nonvenomous insect and other nonvenomous arthropods, initial encounter[ICD10: W57.XXXA] Diagnosis: Insect bite (nonvenomous), right thigh, initial encounter[ICD10: S70.361A] Barbara Brower NAJMA OG DO [facility] CPT-4: 26116 09/2015 ([id number]) OFFICE/OUTPATIENT VISIT EST Diagnosis: Mixed hyperlipidemia[ICD10: E78.2] Diagnosis: Essential (primary) hypertension[ICD10: I10] Diagnosis: Type 2 diabetes mellitus without complications[ICD10: E11.9] Diagnosis: Encounter for immunization[ICD10: Z23] Diagnosis: Encounter for screening for malignant neoplasm of colon[ICD10: Z12.11] Diagnosis: Abnormal weight gain[ICD10: R63.5] Barbara Inocente ANUM GODINEZ [employer]me[employer]Matilde [employer] [facility] CPT-4: 49532 09/06/2015 ([id number]) OFFICE/OUTPATIENT VISIT EST Diagnosis: Type 2 diabetes mellitus without complications[ICD10: E11.9] Diagnosis: Mixed hyperlipidemia[ICD10: E78.2] Diagnosis: Essential (primary) hypertension[ICD10: I10] Diagnosis: Encounter for screening for malignant neoplasm of prostate[ICD10: Z12.5] Diagnosis: Other fatigue[ICD10: R53.83] Najma [employer] [facility] CPT-4: 93406 08/31/2015 OFFICE/OUTPATIENT VISIT EST Diagnosis: Diarrhea, unspecified[ICD10: R19.7] Henrietta MCCOY RECESS[employer] [employer] [facility] CPT-4: 70594 06/29/2015 OFFICE/OUTPATIENT VISIT EST Diagnosis: PNEUMOCOCCAL VACCINE[ICD10: Z23] Diagnosis: FLU VACCINE[ICD10: Z23] Diagnosis: Essential (primary) hypertension[ICD10: I10] Diagnosis: Mixed hyperlipidemia[ICD10: E78.2] Diagnosis: Type 1 diabetes mellitus with unspecified complications[ICD10: E10.8] Diagnosis: Actinic keratosis[ICD10: L57.0] Najma MCARTHUR REC[employer] [facility] CPT-4: 87049 01/17/2015 ([id number]) OFFICE/OUTPATIENT VISIT EST Diagnosis: Type 2 diabetes mellitus without complications[ICD10: E11.9] Diagnosis: Impaired fasting glucose[ICD10: R73.01] Diagnosis: Mixed hyperlipidemia[ICD10: E78.2] Diagnosis: Essential (primary) hypertension[ICD10: I10] Najma [employer] [facility] CPT-4: 82753 01/12/2015 ([id number]) OFFICE/OUTPATIENT VISIT EST Diagnosis: - I - HYPERLIPIDEMIA NEC/NOS[ICD9: 272.4] Diagnosis: HYPERTENSION[ICD9: 401.9] Diagnosis: DM W/O COMPLICATION TYPE II[ICD9: 250.00] Diagnosis: ACTINIC KERATOSIS[ICD9: 702.0] Najma OG [facility] CPT-4: 23721 09/19/2014 ([id number]) OFFICE/OUTPATIENT VISIT EST Diagnosis: HYPERLIPIDEMIA NEC/NOS[ICD9: 272.4] Diagnosis: HYPERTENSION[ICD9: 401.9] Diagnosis: IMPAIRED FASTING GLUCOSE[ICD9: 790.21] Diagnosis: MALAISE AND FATIGUE[ICD9: 780.79] Najma OG [facility] CPT-4: 60565 08/15/2014 ([id number]) OFFICE/OUTPATIENT VISIT EST Diagnosis: HYPERLIPIDEMIA NEC/NOS[ICD9: 272.4] Diagnosis: HYPERTENSION[ICD9: 401.9] Diagnosis: IMPAIRED FASTING GLUCOSE[ICD9: 790.21] Najma LONG [facility] CPT-4: 52463 12/14/2013 ([id number]) OFFICE/OUTPATIENT VISIT EST Diagnosis: Post herpetic neuralgia[ICD9: 053.19] Najma OG [facility] CPT-4: 27636 10/17/2013 OFFICE/OUTPATIENT VISIT EST Diagnosis: Shingles[ICD9: 053.9] Diagnosis: Post herpetic neuralgia[ICD9: 053.19] Jeanie Briceño CLAUDE OG [facility] CPT-4: 77535 09/23/2013 ([id number]) OFFICE/OUTPATIENT VISIT EST Diagnosis: HYPERTENSION[ICD9: 401.9] Diagnosis: HYPERLIPIDEMIA NEC/NOS[ICD9: 272.4] Diagnosis: IMPAIRED FASTING GLUCOSE[ICD9: 790.21] Najmaanaid OG [facility] CPT-4: 28078 06/20/2013 ([id number]) OFFICE/OUTPATIENT VISIT EST Diagnosis: HYPERLIPIDEMIA NEC/NOS[ICD9: 272.4] Diagnosis: MALAISE AND FATIGUE[ICD9: 780.79] Diagnosis: ROUTINE MEDICAL EXAM[ICD9: V70.0] Diagnosis: HYPERTENSION[ICD9: 401.9] Diagnosis: IMPAIRED FASTING GLUCOSE[ICD9: 790.21] Najma Earle SHABNAM UCECILIA Matilda OG [facility] CPT-4: 17767 06/08/2013 ([id number]) OFFICE/OUTPATIENT VISIT EST Diagnosis: HYPERLIPIDEMIA NEC/NOS[ICD9: 272.4] Diagnosis: HYPERTENSION[ICD9: 401.9] Diagnosis: IMPAIRED FASTING GLUCOSE[ICD9: 790.21] Diagnosis: DIARRHEA[ICD9: 787.91] Najma MCARTHUR AmeenaMatilde MERCEDESGregory Haylie [facility] CPT-4: 14497 11/25/2012 ([id number]) OFFICE/OUTPATIENT VISIT EST Diagnosis: HYPERLIPIDEMIA NEC/NOS[ICD9: 272.4] Diagnosis: HYPERTENSION[ICD9: 401.9] Diagnosis: IMPAIRED FASTING GLUCOSE[ICD9: 790.21] Diagnosis: MALAISE AND FATIGUE[ICD9: 780.79] Najma Heverlane Jenkins [facility] CPT-4: 44132 11/11/2012 OFFICE/OUTPATIENT VISIT EST Diagnosis: Fungal dermatitis[ICD9: 111.9] Diagnosis: Dry skin dermatitis[ICD9: 692.89] Henrietta Jenkins Matilda [facility] CPT-4: 62571 08/27/2012 ([id number]) OFFICE/OUTPATIENT VISIT EST Diagnosis: HYPERTENSION[ICD9: 401.9] Diagnosis: HYPERLIPIDEMIA NEC/NOS[ICD9: 272.4] Najma MCCOY AmeenaMatilde MERCEDES [facility] CPT-4: 11120 05/11/2012 ([id number]) OFFICE/OUTPATIENT VISIT EST Diagnosis: HYPERLIPIDEMIA NEC/NOS[ICD9: 272.4] Diagnosis: HYPERTENSION[ICD9: 401.9] Diagnosis: ROUTINE MEDICAL EXAM[ICD9: V70.0] Najma Heverlane Jenkins AmeenaMatilde [facility] CPT-4: 90856 05/04/2012 ([id number]) OFFICE/OUTPATIENT VISIT EST Diagnosis: HYPERTENSION[ICD9: 401.9] Diagnosis: HYPERLIPIDEMIA NEC/NOS[ICD9: 272.4] Diagnosis: IMPAIRED FASTING GLUCOSE[ICD9: 790.21] Najma Grey [facility] CPT-4: 70153 12/11/2011 ([id number]) OFFICE/OUTPATIENT VISIT EST Diagnosis: HYPERLIPIDEMIA NEC/NOS[ICD9: 272.4] Diagnosis: HYPERTENSION[ICD9: 401.9] Diagnosis: IMPAIRED FASTING GLUCOSE[ICD9: 790.21] Najma Grey [facility] DO [facility] CPT-4: 84979 10/29/2011 ([id number]) OFFICE/OUTPATIENT VISIT EST Diagnosis: HYPERTENSION[ICD9: 401.9] Najma SAMSON NDER DO [facility] CPT-4: 09137 08/14/2011 ([id number]) OFFICE/OUTPATIENT VISIT EST Diagnosis: HYPERTENSION[ICD9: 401.9] Diagnosis: IMPAIRED FASTING GLUCOSE[ICD9: 790.21] Najma Grey [facility] CPT-4: 60998 07/29/2011 ([id number]) OFFICE/OUTPATIENT VISIT EST Diagnosis: HYPERTENSION[ICD9: 401.9] Najma SAMSON NDER DO [facility] CPT-4: 18606 07/23/2011 ([id number]) OFFICE/OUTPATIENT VISIT EST Diagnosis: HYPERTENSION[ICD9: 401.9] Najma SAMSON NDER DO [facility] CPT-4: 19013 06/24/2011 OFFICE/OUTPATIENT VISIT EST Diagnosis: HYPERTENSION[ICD9: 401.9] Najma SAMSON NDER DO [facility] CPT-4: 23038 05/20/2011 OFFICE/OUTPATIENT VISIT EST Diagnosis: HYPERTENSION[ICD9: 401.9] Najma SAMSON NDER DO [facility] CPT-4: 84300 04/15/2011 OFFICE/OUTPATIENT VISIT EST Diagnosis: HYPERLIPIDEMIA NEC/NOS[ICD9: 272.4] Diagnosis: IMPAIRED FASTING GLUCOSE[ICD9: 790.21] Najma Grey ORENDER DO [facility] CPT-4: 58060 03/18/2011 ([id number]) OFFICE/OUTPATIENT VISIT EST Najma HAQUE UELINE S. ORENDER DO [facility] CPT-4: 19808 07/30/2010 ([id number]) PREV VISIT, EST, AGE 40-64 Najma OG DO [facility] CPT-4: 49548 04/24/2010 Plan of Care Planned Activity Notes [...] : E78.2 01/31/2019 Appointment: Najma Og WPtel: [address] [place] [address] [place] FOLLOW UP 01/31/2019 Appointment: Najma Og WPtel: [address] [place] [address] US LAB 01/26/2019 Appointment: Najma Og WPtel: [address] [place] [address] US LAB 09/30/2018 Visit Diagnosis Plan: Unspecified [...] : E11.9 08/19/2018 Appointment: Najma Og WPtel: [address] [place] [address] US FOLLOW UP 08/19/2018 Appointment: Najma Og WPtel: [address] [place], [place] [phone] [place] LAB 08/16/2018 Visit Diagnosis Plan: Essential [...] : E78.2 05/10/2018 Appointment: Najma Og WPtel: [address] [place], [place] [phone] FOLLOW UP 05/10/2018 Patient Education: Low Back Pain Exercises: Illustration Completed 05/10/2018 Patient Education: Low Back Pain Exercises Completed 05/10/2018 Appointment: Najma Og WPtel: [address] [place], [place] [phone] [place] LAB 05/05/2018 Visit Diagnosis Plan: Type [...] : E78.2 01/19/2018 Appointment: Najma Og WPtel: [facility] [address] [facility] US FOLLOW UP 01/19/2018 Patient Education: Patient Medication Summary Completed 01/19/2018 Appointment: Najma Og WPtel: [address] [place], [place] [id number] [place] LAB 01/13/2018 Patient Education: Patient Medication [...] : I10 10/15/2017 Appointment: Najma Og WPtel: [address] [place], [place] [phone] FOLLOW UP 10/15/2017 Patient Education: Patient Medication Summary Completed 10/15/2017 Appointment: Najma Og WPtel: [address] [place], [place] [id number] LAB 10/06/2017 Patient Education: Patient Medication Summary Completed 10/06/2017 Visit Diagnosis Plan: Actinic keratosis Discussion: Cr yotherapy as above ICD-9 : 702.0 ICD-10 : L57.0 04/23/2017 Appointment: Najma Og WPtel: [address] [place], [place] [id number] OFFICE SURGERY 04/23/2017 Patient Education: Patient Medication [...] : E78.2 03/11/2017 Appointment: Najma Og WPtel: [address] [place] [address] US FOLLOW UP 03/11/2017 Patient Education: Patient Medication Summary Completed 03/11/2017 Appointment: Najma Og WPtel: [address] [place] [address] US LAB 03/05/2017 Patient Education: Patient Medication [...] : F17.200 07/09/2016 Appointment: Najma Og WPtel: [address] [place] [address] 07/08 lm ~sl 07/09 confirmed~sl FOLLOW UP 08/2016 Patient Education: Patient Medication Summary Completed 07/09/2016 Appointment: Najma Og WPtel: [address] [place] [address] US LAB 06/16/2016 Patient Education: Patient Medication Summary Completed 06/16/2016 Visit Plan: Lab discussed Accuchecks maribel ly Lifestyle change for 3mos then check CMP, HbA1C in 3mos Has had flu and pneumonia shot 03/10/2016 Appointment: Najma Og WPtel: [address] [place] [address] 03/06 confirmed `sl FOLLOW UP 03/10/2016 Patient Education: Patient Medication Summary Completed 03/10/2016 Appointment: [facility] [phone] [facility] [facility] 03/06/2016 Patient Education: Patient Medication Summary Completed 03/06/2016 Referral: Donavon Keller WPtel: [address] [place], [place] [id number] [place] Referral Completed 10/22/2015 Visit Plan: Tick bite area looks much be tter Continue current rxs and close monitoring Follow up if any new symptoms or worsening appearance 09/12/2015 Appointment: Barbara Brower [address] [place], [place] [phone] 09/10 confirmed~sl FOLLOW UP 09/12/2015 Patient Education: Patient Medication Summary Completed 09/12/2015 Visit Plan: Cover as above 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 topical steroids to calm down the inflammation(suspect most of redness is due to histamine response vs infection) Monitor closely Follow up in 2 days to recheck 09/10/2015 Appointment: Barbara Brower [address] [place] [address] ACUTE ILLNESS 09/10/2015 Patient Education: Patient Medication [...] consider shingles vaccine 09/06/2015 Appointment: Barbara Brower [address] [place], [place] [phone] FOLLOW UP 09/06/2015 Patient Education: Patient Medication Summary Completed 09/06/2015 Care Plan: Referral Order SNOMED-CT : [id number] Pending 09/06/2015 Appointment: Najma Og WPtel: [facility] [address] [facility] LAB 08/31/2015 Patient Education: Patient Medication Summary Completed 08/31/2015 Visit Plan: Offered aggressive (KUB, IV fluids, Labs) vs. conservative (oral hydration, treat symptoms, watchful waiting). Elects for conservative + labs. CBC & CMP at [facility] Discussed needed oral hydration (preferably with sports drinks), 24 hour clear liquid followed by BRAT diet and advance as tolerated Discussed s/s of worsening, go to UC/ER. 06/29/2015 Appointment: Henrietta Lubin WPtel: [address] [place] [address] ACUTE ILLNESS 06/29/2015 Patient Education: Patient Medication Summary Completed 06/29/2015 Visit Plan: Lab discussed Will keep meds the same Discussed diet/exercise at length Cryotherapy as above to AKs of arms Flu and Prevnar 13 given Trial of revatio per patient request for ED--warned of no nitrates Recheck 4mos 01/17/2015 Appointment: Najma Og WPtel: [address] [place] [address] 01/16 confirmed~sl FOLLOW UP 01/17/2015 Patient Education: Patient Medication Summary Completed 01/17/2015 Appointment: Najma Og WPtel: [address] [place] [address] LAB 01/12/2015 Patient Education: Patient Medication Summary Completed 01/12/2015 Visit Plan: Lab discussed Start accuchec ks daily Cryotherapy as above 09/19/2014 Appointment: Najma Og WPtel: [address] [place] [address] 09/18 confirmed -mf FOLLOW UP 09/19/2014 Patient Education: Patient Medication Summary Completed 09/19/2014 Appointment: Najma Og WPtel: [address] [place] [address] US LAB 08/15/2014 Patient Education: Patient Medication Summary Completed 08/15/2014 Appointment: Najma Og WPtel: [address] [place] [address] ACUTE ILLNESS 12/14/2013 Patient Education: Patient Medication Summary Completed 12/14/2013 Visit Plan: Patient using tylenol prn pa in Discussed possible shingles shot for booster in 9-12mos 10/17/2013 Appointment: Najma Og WPtel: [address] [place], [place] [phone] FOLLOW UP 10/17/2013 Patient Education: Patient Medication Summary Completed 10/17/2013 Appointment: Jeanie Briceño WPtel: [address] [place], [place] [phone] ACUTE ILLNESS 09/23/2013 Patient Education: Patient Medication Summary Completed 09/23/2013 Appointment: Najma Og WPtel: [address] [place] [address] BP CHECK 07/22/2013 Patient Education: Patient Medication Summary Completed 07/22/2013 Visit Plan: Lab discussed Discussed swit arun amlodopine to beta slim to see if helps with tremor BP check in 1mo 06/20/2013 Appointment: Najma Og WPtel: [address] [place] [address] 06/17 no answer FOLLOW UP 06/20/2013 Patient Education: Patient Medication Summary Completed 06/20/2013 Appointment: Najma Og WPtel: [address] [place], [place] [phone] LAB 06/08/2013 Patient Education: Patient Medication Summary Completed 06/08/2013 Visit Plan: BRAT diet and yogurt and gat orade Lab discussed Continue current meds Spot checks on BS 11/25/2012 Appointment: Najma Og WPtel: [address] [place], [place] [phone] 11/24 FOLLOW UP 11/25/2012 Patient Education: Patient Medication Summary Completed 11/25/2012 Appointment: Najma Og WPtel: [address] [place], [place] [phone] [place] LAB 11/11/2012 Patient Education: Patient Medication Summary Completed 11/11/2012 Appointment: Henrietta Lubin WPtel: [address] [place], [place] [phone] [place] WORK IN 08/27/2012 Patient Education: Patient Medication Summary Completed 08/27/2012 Visit Plan: Pt going to get new home BP moniter Continue crestor and restart fish oil and will check fasting lab in 6mos Lab results discussed 05/11/2012 Appointment: Najma Ogtel: [address] [place], [place] [phone] 05/10 FOLLOW UP 05/11/2012 Patient Education: Patient Medication Summary Completed 05/11/2012 Appointment: Najma Og WPtel: [address] [place], [place] [phone] [place] LAB 05/04/2012 Patient Education: Patient Medication Summary Completed 05/04/2012 Visit Plan: 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 and forehead 03/02/2012 Appointment: Najma Og WPtel: [address] [place], [place] [phone] 03/01 OFFICE SURGERY 03/02/2012 Patient Education: Patient Medication Summary Completed 03/02/2012 Visit Plan: Labs discussed--recheck lab end of Feb/first of Mar Continue current meds and continue to moniter BS daily and BP 1-2 times a week Plan on cryotherapy this fall so can wear longsleeves after procedure See urology 12/11/2011 Appointment: Najma Og WPtel: [address] [place], [place] [phone] FOLLOW UP 12/11/2011 Patient Education: Patient Medication Summary Completed 12/11/2011 Appointment: Najma Og WPtel: [address] [place], [place] [phone] [place] LAB 10/29/2011 Patient Education: Patient Medication Summary Completed 10/29/2011 Appointment: Najma Og WPtel: [address] [place], [place] [id number] BP CHECK 08/14/2011 Patient Education: Patient Medication Summary Completed 08/14/2011 Appointment: Najma Og WPtel: [address] [place], [place] [phone] ACUTE ILLNESS 07/29/2011 Patient Education: Patient Medication Summary Completed 07/29/2011 Appointment: Najma Og WPtel: [address] [place] [address] BP CHECK 07/23/2011 Patient Education: Patient Medication Summary Completed 07/23/2011 Appointment: Najma Og WPtel: [address] [place] [address] BP CHECK 06/24/2011 Patient Education: Patient Medication Summary Completed 06/24/2011 Appointment: Najma Og WPtel: [address] [place] [address] BP CHECK 05/20/2011 Patient Education: Patient Medication Summary Completed 05/20/2011 Appointment: Najma Og WPtel: [address] [place] [address] BP CHECK 04/29/2011 Patient Education: Patient Medication Summary Completed 04/29/2011 Appointment: Najma Og WPtel: [address] [place] [address] BP CHECK 04/15/2011 Patient Education: Patient Medication Summary Completed 04/15/2011 Visit Plan: Continue current meds Add fi sh oil 1gm daily Glucometer given to use for accuchecks prn 03/18/2011 Appointment: Najma Og WPtel: [address] [place] [address] US FOLLOW UP 03/18/2011 Patient Education: Patient Medication Summary Completed 03/18/2011 Appointment: Najma Og WPtel: [address] [place] [address] US LAB 03/14/2011 Patient Education: Patient Medication Summary Completed 03/14/2011 Appointment: Najma Ogtel: [address] [place], [place] [phone] [place] LAB 11/11/2010 Appointment: Najma Og WPtel: [address] [place], [place] [phone] [place] UA 11/11/2010 Patient Education: Patient Medication Summary Completed 11/11/2010 Appointment: Najma Og WPtel: [address] [place], [place] [phone] [place] LAB 10/29/2010 Patient Education: Patient Medication Summary Completed 10/29/2010 Appointment: Najma Og WPtel: [address] [place], [place] [phone] [place] FOLLOW UP 07/30/2010 Patient Education: Patient Medication Summary Completed 07/30/2010 Appointment: Najma Og WPtel: [address] [place], [place] [phone] [place] LAB 07/23/2010 Patient Education: Patient Medication Summary Completed 07/23/2010 Appointment: Najma Og WPtel: [address] [place], [place] [phone] [place] LAB 04/26/2010 Patient Education: Patient Medication Summary Completed 04/26/2010 Visit Plan: Add PSA to lab Restart Crest or at 10mg daily Trial of Wellbutrin to aid in smoking cessation Check Lipids and LFTs in 3mos 04/24/2010 Appointment: Najma Og WPtel: [address] [place], [place] [phone] [place] FOLLOW UP 04/24/2010 Patient Education: Patient Medication Summary Completed 04/24/2010 Appointment: Najma Og WPtel: [address] [place], [place] [phone] [place] LAB 04/19/2010 Patient Education: Patient Medication Summary Completed 04/19/2010 Referral: Donavon Keller WPtel: [address] [facility] [id number] [place] Referral Completed Instructions Comment . Lab [...]
--- OUTSIDE RECORDS SUMMARY | 2019-10-14 22:59 | XMS REPORT | CCD ---
Author Author Inocente Og D.O. 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 PP Unavailable CCM Unavailable Summary Purpose Interface Exchange Insurance Providers Payer name Policy type / Coverage type Covered republican ID Effective Begin Date Effective End Date [employer] MEDICARE Medicare Part B [id number] Unknown [facility] Medicare Part B [id number] Un known Family history Father Diagnosis Age At Onset Diabetes mellitus Type 2 Unknown Myocardial infarction Unknown Brother Diagnosis Age At Onset Diabetes mellitus Type 2 Unknown Mother Diagnosis Age At Onset Osteoarthritis Unknown Cerebrovascular disease Unknown Social History Social History Element Codes Description Effective Dates Tobacco history SNOMED CT: 185434647 Never smoker 12/21/2014 Marital status Unknown 07/30/2010 [...] ER 80 mg capsule,24 hr,extended release RxNorm: 585301 TAKE 1 CAPSULE BY MOUTH ONCE DAILY 03/15/2019 No Stop Date Active amlodipine 5 mg tablet RxNorm: 806802 1 Tablet(s) PO QD 12/27/2018 Active fenofibrate micronized 134 mg capsule RxNorm: 144819 TA KE 1 CAPSULE BY MOUTH ONCE DAILY FOR TRIGLYCERIDES 10/11/2018 No Stop Date Active amlodipine 5 mg tablet RxNorm: 086946 1 Tablet(s) PO QD 09/30/2018 Inactive metformin ER 500 mg tablet,extended release 24 hr RxNorm: 86 0975 TAKE 1 TABLET BY MOUTH ONCE DAILY 09/21/2018 No Stop Date Active propranolol ER 80 mg capsule,24 hr,extended release RxNorm: 600660 TAKE 1 CAPSULE BY MOUTH ONCE DAILY 09/21/2018 03/14/2019 Inactive amlodipine 5 mg tablet RxNorm: 072471 1 Tablet(s) PO QD 08/25/2018 Inactive amlodipine 5 mg tablet RxNorm: 416299 1 Tablet(s) PO QD 08/25/2018 Inactive lisinopril 40 mg tablet RxNorm: 912493 TAKE 1 TABLET BY MOUTH O NCE DAILY 07/21/2018 08/24/2018 Inactive fenofibrate micronized 134 mg capsule RxNorm: 376888 TA KE 1 CAPSULE BY MOUTH ONCE DAILY FOR TRIGLYCERIDES 07/12/2018 10/10/2018 Inactive propranolol ER 80 mg capsule,24 hr,extended release RxNorm: 939893 TAKE 1 CAPSULE BY MOUTH ONCE DAILY 06/21/2018 09/20/2018 Inactive lisinopril 40 mg tablet RxNorm: 438885 TAKE 1 TABLET BY MOUTH O NCE DAILY 04/26/2018 07/20/2018 Inactive metformin ER 500 mg tablet,extended release 24 hr RxNorm: 400671 1 Tablet(s) QD 03/31/2018 09/20/2018 Inactive lisinopril 40 mg tablet RxNorm: 925359 TAKE 1 TABLET BY MOUTH O NCE DAILY 01/28/2018 04/25/2018 Inactive Vitamin D3 5,000 unit tablet RxNorm: 122005 1 Tablet(s) PO QD 01/1908/18/2018 Inactive fenofibrate micronized 134 mg capsule RxNorm: 309194 1 Capsule(s) PO QD for triglycerides 01/19/2018 07/11/2018 Inactive metformin ER 500 mg tablet,extended release 24 hr RxNorm: 086389 1 Tablet(s) QD 12/31/2017 03/30/2018 Inactive metformin ER 500 mg tablet,extended release 24 hr RxNorm: 492282 Tablet(s) 12/30/2017 12/30/2017 Inactive propranolol ER 80 mg capsule,24 hr,extended release RxNorm: 570369 1 Capsule(s) PO QD 12/17/2017 06/14/2018 Inactive metformin ER 500 mg tablet,extended release 24 hr RxNorm: 86 0975 1 Tablet(s) PO QD DUE FOR LABS AND APPT 12/02/2017 12/30/2017 Inactive Crestor 10 mg tablet RxNorm: 086263 TAKE ONE TABLET BY MOUTH ON CE DAILY 11/01/2017 01/18/2018 Inactive lisinopril 40 mg tablet RxNorm: 206067 TAKE ONE TABLET BY MOUTH ONCE DAILY [...] ER 80 mg capsule,24 hr,extended release RxNorm: 542775 1 Capsule(s) PO QD DUE FOR APPT 09/08/2017 12/17/2017 Inactive Crestor 10 mg tablet RxNorm: 627461 1 Tablet(s) PO QD T CHELSI ONE TABLET BY MOUTH DAILY 03/11/2017 09/06/2017 Inactive propranolol ER 80 mg capsule,24 hr,extended release RxNorm: 954639 1 Capsule(s) PO QD TAKE ONE CAPSULE BY MOUTH DAILY - REPLACES AMLODOPINE 03/11/2017 09/08/2017 Inactive metformin ER 500 mg tablet,extended release 24 hr RxNorm: 86 0975 1 Tablet(s) PO QD 03/11/2017 09/08/2017 Inactive lisinopril 40 mg tablet RxNorm: 427258 1 Tablet(s) PO QD 03/11/2017 0 09/06/2017 Inactive lisinopril 40 mg tablet RxNorm: 665823 1 Tablet(s) PO QD 02/16/2017 1 05/11/2016 Inactive metformin ER 500 mg tablet,extended release 24 hr RxNorm: 86 0975 1 Tablet(s) PO QD Due for labs and follow up before further refills 02/16/2017 017 Inactive propranolol ER 80 mg capsule,24 hr,extended release RxNorm: 045973 Capsule(s) TAKE ONE CAPSULE BY MOUTH DAILY - REPLACES AMLODOPINE 11/19/20162016 Inactive lisinopril 40 mg tablet RxNorm: 248813 1 Tablet(s) PO QD 11/17/2016 1 04/18/2016 Inactive metformin ER 500 mg tablet,extended release 24 hr RxNorm: 86 0975 1 Tablet(s) PO QD 11/17/2016 02/16/2017 Inactive lisinopril 40 mg tablet RxNorm: 220125 1 Tablet(s) PO Q D TAKE ONE TABLET BY MOUTH DAILY 08/19/2016 11/17/2016 Inactive metformin ER 500 mg tablet,extended release 24 hr RxNorm: 86 0975 Tablet(s) TAKE ONE TABLET BY MOUTH DAILY 08/19/2016 11/16/2016 Inactive propranolol ER 80 mg capsule,24 hr,extended release RxNorm: 658368 Capsule(s) TAKE ONE CAPSULE BY MOUTH DAILY - REPLACES AMLODOPINE 08/19/20162016 Inactive Crestor 10 mg tablet RxNorm: 777436 TAKE ONE TABLET BY MOUTH DAILY 06/16/2016 03/10/2017 Inactive lisinopril 40 mg tablet RxNorm: 030180 1 Tablet(s) PO Q D TAKE ONE TABLET BY MOUTH DAILY 05/23/2016 08/18/2016 Inactive metformin ER 500 mg tablet,extended release 24 hr RxNorm: 86 0975 TAKE ONE TABLET BY MOUTH DAILY 05/23/2016 08/19/2016 Inactive propranolol ER 80 mg capsule,24 hr,extended release RxNorm: 455002 TAKE ONE CAPSULE BY MOUTH DAILY - REPLACES AMLODOPINE 05/23/2016 08/19/2016 [facility] Crestor 10 mg tablet RxNorm: 549009 TAKE ONE TABLET BY MOUTH DAILY 03/31/2016 06/15/2016 Inactive metformin ER 500 mg tablet,extended release 24 hr RxNorm: 86 0975 TAKE ONE TABLET BY MOUTH DAILY 02/19/2016 05/22/2016 Inactive propranolol ER 80 mg capsule,24 hr,extended release RxNorm: 486990 TAKE ONE CAPSULE BY MOUTH DAILY - REPLACES AMLODOPINE 11/23/2015 05/20/2016 [facility] metformin ER 500 mg tablet,extended release 24 hr RxNorm: 86 0975 TAKE ONE TABLET BY MOUTH DAILY 11/08/2015 02/05/2016 Inactive Bactroban Nasal 2 % ointment RxNorm: 953429 Apply topic ally to affected area twice daily 09/10/2015 03/09/2016 Inactive Vibramycin 100 mg capsule RxNorm: 507852 1 Capsule(s) PO BID 201509/23/2015 Inactive lisinopril 40 mg tablet RxNorm: 412150 1 Tablet(s) PO Q D TAKE ONE TABLET BY MOUTH DAILY 08/27/2015 02/22/2016 Inactive metformin ER 500 mg tablet,extended release 24 hr RxNorm: 86 0975 TAKE ONE TABLET BY MOUTH DAILY 08/06/2015 11/03/2015 Inactive Levsin/SL 0.125 mg sublingual tablet RxNorm: 3492495 1 T ablet(s) SL Q4H as needed for stomach cramps 06/29/2015 07/03/2015 Inactive lisinopril 40 mg tablet RxNorm: 312724 Tablet(s) TAKE ONE TABLE T BY MOUTH DAILY 06/07/2015 08/26/2015 Inactive propranolol ER 80 mg capsule,24 hr,extended release RxNorm: 110584 TAKE ONE CAPSULE BY MOUTH DAILY - REPLACES AMLODOPINE 05/30/2015 11/22/2015 [facility] metformin ER 500 mg tablet,extended release 24 hr RxNorm: 86 0975 1 Tablet(s) PO QD 05/10/2015 08/05/2015 Inactive Crestor 10 mg tablet RxNorm: 704722 TAKE ONE TABLET BY MOUTH DAILY 04/18/2015 10/14/2015 Inactive metformin ER 500 mg tablet,extended release 24 hr RxNorm: 86 0975 TAKE ONE TABLET BY MOUTH DAILY 02/07/2015 05/10/2015 Inactive sildenafil 20 mg tablet RxNorm: 636249 1 Tablet(s) PO QD 01/17/2015 1 04/17/2014 Inactive propranolol ER 80 mg capsule,24 hr,extended release RxNorm: 484973 1 Capsule(s) PO QD replaces amlodopine 11/28/2014 05/26/2015 Inactive [[facility] -- BIN:[id number], PCN: [id number], Group: [id number], ID# [id number], Process claim through Kod[employer], for questions: . THIS IS NOT INSURANCE.] lisinopril 40 mg tablet RxNorm: 069197 TAKE ONE TABLET BY MOUTH DAILY 11/16/2014 06/07/2015 Inactive lisinopril 40 mg tablet RxNorm: 632829 1 Tablet(s) PO QD 08/21/2014 0 11/15/2014 Inactive [AttnRPh: Saving apply/adjudicate RxGRP: [id number] RxBIN:[id number] RxPCN: ID#:[id number]] lisinopril 40 mg tablet RxNorm: 698109 1 Tablet(s) PO Q D NEEDS SEEN FOR APPOINTMENT 07/14/2014 08/21/2014 Inactive [AttnRPh: Saving apply/adjudicate RxGRP:SG20 RxBIN:[id number] RxPCN: ID#:[id number]] Crestor 10 mg tablet RxNorm: 668772 TAKE ONE TABLET BY MOUTH EV EILEEN07/06/2014 01/01/2015 Inactive metformin ER 500 mg tablet,extended release 24 hr RxNorm: 86 0975 1 Tablet(s) QD TAKE ONE TABLET BY MOUTH ONCE A DAY 06/09/2014 12/05/2014 Inactive propranolol ER 80 mg capsule,24 hr,extended release RxNorm: 185016 1 Capsule(s) PO QD replaces amlodopine 06/05/2014 11/28/2014 Inactive [[facility] -- BIN:[id number], PCN: [id number], Group: [id number], ID# [id number], Process claim through [employer], for questions: . THIS IS NOT INSURANCE.] propranolol ER 80 mg capsule,24 hr,extended release RxNorm: 485677 1 Capsule(s) PO QD replaces amlodopine 03/07/2014 06/05/2014 Inactive [[facility] -- BIN:[id number], PCN: [id number], Group: [id number], ID# [id number], Process claim through [employer], for questions: . THIS IS NOT INSURANCE.] metformin ER 500 mg tablet,extended release 24 hr RxNorm: 86 0975 TAKE ONE TABLET BY MOUTH ONCE A DAY 12/15/2013 06/09/2014 Inactive propranolol ER 80 mg capsule,24 hr,extended release RxNorm: 067215 1 Capsule(s) PO QD replaces amlodopine 12/09/2013 03/07/2014 Inactive [[facility] -- BIN:867867, PCN: [id number], Group: [id number], ID# [id number], Process claim through [employer], for questions: . THIS IS NOT INSURANCE.] acyclovir 800 mg tablet RxNorm: 816884 1 Tablet(s) PO QID 09/23/2013 09/29/2013 Inactive gabapentin 300 mg capsule RxNorm: 261293 1 Capsule(s) PO BID 201310/07/2013 Inactive metformin ER 500 mg tablet,extended release 24 hr RxNorm: 86 0975 1 Tablet(s) PO QD 09/19/2013 12/14/2013 Inactive propranolol ER 80 mg capsule,24 hr,extended release RxNorm: 272517 1 Capsule(s) PO QD replaces amlodopine 09/15/2013 12/09/2013 Inactive metformin ER 500 mg 24 hr tablet,extended release RxNorm: 86 0975 1 Tablet(s) PO QD 09/15/2013 09/18/2013 Inactive lisinopril 40 mg tablet RxNorm: 249783 1 Tablet(s) PO QD 07/19/2013 0 07/14/2014 Inactive Crestor 10 mg tablet RxNorm: 997308 Tablet(s) PO TAKE O NE TABLET BY MOUTH EVERY DAY 07/12/2013 07/05/2014 Inactive propranolol ER 80 mg capsule,24 hr,extended release RxNorm: 329283 1 Capsule(s) PO QD replaces amlodopine 06/20/2013 09/15/2013 Inactive triamcinolone acetonide 0.1 % topical ointment RxNorm: 84179 36 Application TOP BID 06/20/2013 06/26/2013 Inactive Crestor 10 mg tablet RxNorm: 989655 1 Tablet(s) PO QD 04/18/201310/2013 Inactive Viagra 100 mg tablet RxNorm: 894152 1 Tablet(s) PO as directed 01/0508/18/2018 Inactive TAKE ONE TABLET BY MOUTH DIRECTED Crestor 10 mg tablet RxNorm: 498642 1 Tablet(s) PO QD 01/17/201304/06 Inactive metformin ER 500 mg tablet,extended release 24 hr RxNorm: 86 0975 1 Tablet(s) PO QD TAKE ONE TABLET BY MOUTH EVERY DAY 12/23/2012 09/15/2013 Inactive triamcinolone acetonide 0.1 % topical ointment RxNorm: 16859 36 Application TOP BID 08/27/2012 09/02/2012 Inactive ketoconazole 2 % topical cream RxNorm: 421847 1 Application TOP QAM 08/27/2012 09/02/2012 Inactive lisinopril 40 mg tablet RxNorm: 662580 1 Tablet(s) PO QD 07/21/2012 0 07/15/2013 Inactive Crestor 10 mg tablet RxNorm: 904634 1 Tablet(s) PO QD 07/21/201210/04 Inactive amlodipine 10 mg tablet RxNorm: 779257 1 Tablet(s) PO QHS 07/21/2012 07/15/2013 Inactive metformin ER 500 mg tablet,extended release 24 hr RxNorm: 86 0977 Tablet(s) PO TAKE ONE TABLET BY MOUTH EVERY DAY 03/31/2012 12/22/2012 Inactive lisinopril 40 mg tablet RxNorm: 362478 1 Tablet(s) PO QD 07/29/2011 0 07/20/2012 Inactive amlodipine 10 mg tablet RxNorm: 797593 1 Tablet(s) PO QHS 07/29/2011 07/20/2012 Inactive amlodipine 10 mg Tab RxNorm: 951132 1 Tablet(s) PO QHS 07/29/2011 Inactive Viagra 100 mg tablet RxNorm: 841203 1 Tablet(s) PO as directed 07/0601/24/2013 Inactive TAKE ONE TABLET BY MOUTH DIRECTED Crestor 10 mg tablet RxNorm: 006335 1 Tablet(s) PO QD 07/29/201107/05 Inactive Norvasc 5 mg Tab RxNorm: 017312 1 Tablet(s) PO QD 07/16/2011 07/28/19 12 Inactive Norvasc 5 mg Tab RxNorm: 168798 1 Tablet(s) PO QD 06/26/2011 07/15/19 12 Inactive lisinopril 40 mg Tab RxNorm: 339936 1 Tablet(s) PO QD 05/13/201107/06 Inactive metformin ER 500 mg tablet,extended release 24 hr RxNorm: 86 0977 1 Tablet(s) PO QD 03/18/2011 07/28/2011 Inactive Crestor 10 mg Tab RxNorm: 190347 1 Tablet(s) PO QHS 01/27/20112011 Inactive metformin ER 500 mg 24 hr Tab RxNorm: 513870 1 Tablet(s) PO QD 11/0403/17/2011 Inactive Viagra 100 mg Tab RxNorm: 148647 Tablet(s) PO TAKE ON E TABLET BY MOUTH DIRECTED 08/26/2010 07/28/2011 Inactive metformin ER 500 mg 24 hr Tab RxNorm: 341233 1 Tablet(s) PO QD 07/0611/18/2010 Inactive Crestor 10 mg Tab RxNorm: 724633 1 Tablet(s) PO QHS 07/30/20102010 Inactive Crestor 10 mg Tab RxNorm: 367546 1 Tablet(s) PO QHS 05/20/20102010 Inactive Wellbutrin SR 150 mg Tab RxNorm: 939553 1 Tablet(s) PO QAM 04/24/19 11 07/22/2010 Inactive Multivitamin And Mineral tablet RxNorm: 1 Tablet(s) PO QD No Start Date Active FreeStyle Lite Strips RxNorm: 1 Unit Dose Miscel laneous AC & HS check blood sugar AC and HS No Start Date Active Co Q-10 200 mg capsule RxNorm: 316189 1 Capsule(s) PO QD No Start Date Active lancets RxNorm: 1 Milliliter(s) Miscellaneous AC & HS No Start Robert e Active Vitamin D3 4,000 unit capsule RxNorm: 6379293 1 Capsule(s) PO QD No Start Date 07/08/2016 Inactive Fish Oil 360 mg-1,200 mg capsule RxNorm: 511168 2 Capsule(s) PO QD No Start Date 01/30/2019 Inactive hydrocodone 5 mg-acetaminophen 325 mg tablet RxNorm: 765906 1 Tablet(s) PO Q4H as needed for severe pain No Start Date 12/30/2015 Inactive Xanax 0.25 mg tablet RxNorm: 269610 1/2 Tablet(s) PO PRN for se andrea stress No Start Date 07/08/2016 Inactive lisinopril 40 mg Tab RxNorm: 032878 1 Tablet(s) PO QD No Start Date 0 05/12/2011 Inactive Fish Oil 1,000 mg capsule RxNorm: 1 Capsule(s) PO QD No Start Date 09/18/2014 Inactive naproxen 500 mg Tab RxNorm: 537847 1 Tablet(s) PO BID No Start Date 0 07/28/2011 Inactive aspirin 81 mg tablet RxNorm: 266474 1 Tablet(s) PO QD No Start Date 0 05/09/2018 Inactive Crestor 10 mg Tab RxNorm: 375468 1 Tablet(s) PO QD No Start Date 07/06 Inactive Crestor 5 mg tablet RxNorm: 347042 1 Tablet(s) PO QD No Start Date Inactive Fish Oil Oral RxNorm: Oral No Start Date 09/18/2014 Inactive Viagra 100 mg Tab RxNorm: 655339 1 Tablet(s) PO as directed No Star [...] Code Item Item Code Result Date S [facility] Location MEAN GLUC 3867954 Calc Mean Gluc 140 mg/dL 01/26/2019 Unkn own GLYCOSYLATED HEMOGLOBIN TEST 55368 Hgb A1c 93970-6 6.5 % 1 Unknown COMPREHENSIVE METABOLIC 93949 AST 17 U/L 2018 Unknown COMPREHENSIVE METABOLIC 78439 ALT 19 U/L 2018 Unknown COMPREHENSIVE METABOLIC 07115 BUN 19 mg/dL 2018 Unknown COMPREHENSIVE METABOLIC 03673 ALBUMIN 4.3 g/dL 2018 Unknown COMPREHENSIVE METABOLIC 22095 CHLORIDE 103 mmol/L 01/26 Unknown COMPREHENSIVE METABOLIC 47946 Bili Total 0.6 mg/dL 01/26 Unknown COMPREHENSIVE METABOLIC 29273 ALK PHOS 60 U/L 2018 Unknown COMPREHENSIVE METABOLIC 05586 SODIUM 140 mmol/L 01/26 Unknown COMPREHENSIVE METABOLIC 44765 CREATININE 1.21 mg/dL 01/05 Unknown COMPREHENSIVE METABOLIC 88481 CALCIUM 9.6 mg/dL 2018 Unknown COMPREHENSIVE METABOLIC 69037 POTASSIUM 4.5 mmol/L 01/26 Unknown COMPREHENSIVE METABOLIC 07999 Total Protein 6.7 g/dL Unknown COMPREHENSIVE METABOLIC 24299 Glucose 111 mg/dL 2018 Unknown COMPREHENSIVE METABOLIC 48617 Bicarbonate 28 mmol/L 01/05 Unknown COMPREHENSIVE METABOLIC 10952 AGAP 9 mmol/L 2018 Unknown COMPLETE BLOOD COUNT 8703739 WBC 10.7 10e9/L 019 Unknown COMPLETE BLOOD COUNT [id number] RBC 4.38 10e12/L 2018 Unknown COMPLETE BLOOD COUNT [id number] HEMOGLOBIN 13.7 g/dL 01/27/20 19 Unknown COMPLETE BLOOD COUNT [id number] HEMATOCRIT 42.0 % 01/27/20 19 Unknown COMPLETE BLOOD COUNT [id number] MCV 95.9 fL 9 Unknown COMPLETE BLOOD COUNT [id number] MCH 31.3 pg 9 Unknown COMPLETE BLOOD COUNT 2747242 MCHC 32.6 g/dL 9 Unknown COMPLETE BLOOD COUNT 5148993 PLATELET COUNT 232 10e9/L Unknown COMPLETE BLOOD COUNT 2955095 Mean Plt Volume 11.4 fL Unknown COMPLETE BLOOD COUNT [id number] Neut Auto 68.7 % 9 Unknown COMPLETE BLOOD COUNT [id number] Lymph Auto 21.2 % 01/27/20 19 Unknown COMPLETE BLOOD COUNT 0517633 [place] Auto 8.1 % 9 Unknown COMPLETE BLOOD COUNT 6297581 RDW 14.1 % 9 Unknown COMPLETE BLOOD COUNT 6809517 Eos Auto 1.8 % 9 Unknown COMPLETE BLOOD COUNT 9339961 Baso Auto 0.2 % 9 Unknown COMPLETE BLOOD COUNT [id number] Neutrophil Abs 7.35 10e9/L Unknown COMPLETE BLOOD COUNT [id number] Lymphocyte Abs 2.27 10e9/L Unknown COMPLETE BLOOD COUNT [id number] Monocyte Abs 0.87 10e9/L 01/05 Unknown COMPLETE BLOOD COUNT 6853751 Eosinophil Abs 0.19 10e9/L Unknown COMPLETE BLOOD COUNT [id number] RDW-SD 47.7 fL 9 Unknown COMPLETE BLOOD COUNT [id number] Basophil Abs 0.02 10e9/L 01/05 Unknown GFR CALC [id number] GFR Non Afr Amr 59 mL/min 01/26/2019 Unk nown GFR CALC [id number] GFR Afr Amr >60 mL/min 01/26/2019 Unknow n LIPID GROUP 84684 Cholesterol 215 mg/dL 01/26/2019 Unkno wn LIP[facility] GROUP 81378 Triglyceride 221 mg/dL 01/26/2019 Unkn own LIP[facility] GROUP 66751 HDL CHOLESTEROL 41 mg/dL 01/26/2019 U nknown LIP[facility] GROUP 30200 Chol/HDL Ratio 5.24 ratio 01/26/2019 U nknown LIP[facility] GROUP 36111 NON-HDL Chol 174 mg/dL 01/26/2019 Unkn own LIP[facility] GROUP 48869 LDL Cholesterol 130 mg/dL 01/26/2019 [place] [address] Glucose 104 mg/dL 09/30 [place] [address] CREATININE 1.18 mg/dL [place] [address] BUN 19 mg/dL 09/30 [place] [address] SODIUM 139 mmol/L 09/05 [place] [address] POTASSIUM 4.1 mmol/L 09/05 [place] [address] CHLORIDE 105 mmol/L 09/05 [place] [address] Bicarbonate 26 mmol/L [place] [address] AGAP 8 mmol/L 09/30 [place] [address] CALCIUM 9.3 mg/dL 09/30 Unknown GFR CALC 7114773 GFR Afr Amr >60 mL/min 09/30/2018 Unknow n GFR CALC [id number] GFR Non Afr Amr >60 mL/min 09/30/2018 Un known MICROALBUMIN URINE RANDOM 04295 U Microalbumin <2.0 mg/L 08/19/2018 Unknown MICROALBUMIN URINE RANDOM 18407 U Creatinine 66 mg/dL 0 08/19/2018 Unknown MICROALBUMIN URINE RANDOM 18629 ALB/CR Ratio <3.0 mg/gCR 08/19/2018 Unknown COMPREHENSIVE METABOLIC 69464 AST 21 U/L 2018 Unknown COMPREHENSIVE METABOLIC 22996 ALT 20 U/L 2018 Unknown COMPREHENSIVE METABOLIC 70643 BUN 31 mg/dL 2018 Unknown COMPREHENSIVE METABOLIC 38750 ALBUMIN 4.4 g/dL 2018 Unknown COMPREHENSIVE METABOLIC 77038 CHLORIDE 105 mmol/L 08/16 Unknown COMPREHENSIVE METABOLIC 08403 Bili Total 0.5 mg/dL 08/16 Unknown COMPREHENSIVE METABOLIC 50769 ALK PHOS 40 U/L 2018 Unknown COMPREHENSIVE METABOLIC 26363 SODIUM 140 mmol/L 08/16 Unknown COMPREHENSIVE METABOLIC 04695 CREATININE 1.45 mg/dL 08/04 Unknown COMPREHENSIVE METABOLIC 52433 CALCIUM 9.8 mg/dL 2018 Unknown COMPREHENSIVE METABOLIC 24293 POTASSIUM 5.1 mmol/L 08/16 Unknown COMPREHENSIVE METABOLIC 05892 Total Protein 6.9 g/dL Unknown COMPREHENSIVE METABOLIC 67459 Glucose 110 mg/dL 2018 Unknown COMPREHENSIVE METABOLIC 33226 Bicarbonate 25 mmol/L 08/04 Unknown COMPREHENSIVE METABOLIC 05095 AGAP 10 mmol/L 2018 Unknown GFR CALC 6836685 GFR Afr Amr 58 mL/min 08/16/2018 Unknown GFR CALC 9013038 GFR Non Afr Amr 48 mL/min 08/16/2018 Unk nown GLYCOSYLATED HEMOGLOBIN TEST 27995 Hgb A1c 37444-3 5.9 % 0 08/16/2018 Unknown LIPID GROUP 80174 Cholesterol 226 mg/dL 08/16/2018 Unkno wn LIPID GROUP 86717 Triglyceride 335 mg/dL 08/16/2018 Unkn own LIPID GROUP 71153 HDL CHOLESTEROL 32 mg/dL 08/16/2018 U nknown LIPID GROUP 51013 Chol/HDL Ratio 7.06 ratio 08/16/2018 U nknown LIPID GROUP 67028 NON-HDL Chol 194 mg/dL 08/16/2018 Unkn own LIPID GROUP 24104 LDL Cholesterol 127 mg/dL 08/16/2018 U nknown THYROID STIMULATING HORMONE 42853 TSH 2.475 uIU/mL 08/16/2018 Unknown COMPLETE BLOOD COUNT 3410589 WBC 7.5 10e9/L 08/17/19 19 Unknown COMPLETE BLOOD COUNT [id number] RBC 4.09 10e12/L 2018 Unknown COMPLETE BLOOD COUNT 2466267 HEMOGLOBIN 12.9 g/dL 08/17/19 19 Unknown COMPLETE BLOOD COUNT 7282219 HEMATOCRIT 40.0 % 08/17/19 19 Unknown COMPLETE BLOOD COUNT 9986669 MCV 97.8 fL 9 Unknown COMPLETE BLOOD COUNT 0161618 MCH 31.5 pg 9 Unknown COMPLETE BLOOD COUNT 8905324 MCHC 32.3 g/dL 9 Unknown COMPLETE BLOOD COUNT 0553912 PLATELET COUNT 258 10e9/L Unknown COMPLETE BLOOD COUNT 7892724 Mean Plt Volume 11.4 fL Unknown COMPLETE BLOOD COUNT 3074038 Neut Auto 62.9 % 9 Unknown COMPLETE BLOOD COUNT 3681115 Lymph Auto 27.3 % 08/17/19 19 Unknown COMPLETE BLOOD COUNT 6402953 [place] Auto 8.2 % 9 Unknown COMPLETE BLOOD COUNT 9928729 RDW 13.3 % 9 Unknown COMPLETE BLOOD COUNT 6568670 Eos Auto 1.5 % 9 Unknown COMPLETE BLOOD COUNT 6784827 Baso Auto 0.1 % 9 Unknown COMPLETE BLOOD COUNT 2652619 Neutrophil Abs 4.72 10e9/L Unknown COMPLETE BLOOD COUNT 6825473 Lymphocyte Abs 2.05 10e9/L Unknown COMPLETE BLOOD COUNT 5302765 Monocyte Abs 0.62 10e9/L 08/04 Unknown COMPLETE BLOOD COUNT 0884775 Eosinophil Abs 0.11 10e9/L Unknown COMPLETE BLOOD COUNT [id number] Basophil Abs 0.01 10e9/L 08/04 Unknown COMPLETE BLOOD COUNT [id number] RDW-SD 46.7 fL 9 Unknown MEAN GLUC 4953016 Calc Mean Gluc 123 mg/dL 08/16/2018 Unkn own LIPID GROUP 48575 Cholesterol 212 mg/dL 05/05/2018 Unkno wn LIPID GROUP 15484 Triglyceride 271 mg/dL 05/05/2018 Unkn own [facility] 49089 HDL CHOLESTEROL 38 mg/dL 05/05/2018 U nknown LIPID GROUP 65652 Chol/HDL Ratio 5.58 ratio 05/05/2018 U nknown LIPID GROUP 66496 NON-HDL Chol 174 mg/dL 05/05/2018 Unkn own LIP[facility] GROUP 80088 LDL Cholesterol 120 mg/dL 05/05/2018 U nknown GFR CALC 0795190 GFR Non Afr Amr 49 mL/min 05/05/2018 Unk nown GFR CALC 5301582 GFR Afr Amr 59 mL/min 05/05/2018 Unknown GLYCOSYLATED HEMOGLOBIN TEST 01662 Hgb A1c 51915-1 6.0 % 0 05/05/2018 Unknown MEAN GLUC 6352804 Calc Mean Gluc 126 mg/dL 05/05/2018 Unkn own COMPREHENSIVE METABOLIC 74395 AST 18 U/L 2018 Unknown COMPREHENSIVE METABOLIC 89667 ALT 23 U/L 2018 Unknown COMPREHENSIVE METABOLIC 13568 BUN 30 mg/dL 2018 Unknown COMPREHENSIVE METABOLIC 43445 ALBUMIN 4.3 g/dL 2018 Unknown COMPREHENSIVE METABOLIC 12298 CHLORIDE 106 mmol/L 05/05 Unknown COMPREHENSIVE METABOLIC 03756 Bili Total 0.4 mg/dL 05/05 Unknown COMPREHENSIVE METABOLIC 08888 ALK PHOS 39 U/L 2018 Unknown COMPREHENSIVE METABOLIC 86228 SODIUM 139 mmol/L 05/05 Unknown COMPREHENSIVE METABOLIC 31680 CREATININE 1.44 mg/dL 04/08 Unknown COMPREHENSIVE METABOLIC 54757 CALCIUM 9.6 mg/dL 2018 Unknown COMPREHENSIVE METABOLIC 89595 POTASSIUM 4.7 mmol/L 05/05 Unknown COMPREHENSIVE METABOLIC 63072 Total Protein 6.6 g/dL Unknown COMPREHENSIVE METABOLIC 88434 Glucose 112 mg/dL 2018 Unknown COMPREHENSIVE METABOLIC 25947 Bicarbonate 28 mmol/L 04/08 Unknown COMPREHENSIVE METABOLIC 18976 AGAP 5 mmol/L 2018 Unknown THYROID STIMULATING HORMONE 59699 TSH 3.725 uIU/mL 05/05/2018 Unknown COMPLETE BLOOD COUNT 6425179 WBC 8.2 10e9/L 05/05/19 19 Unknown COMPLETE BLOOD COUNT [id number] RBC 4.02 10e12/L 2018 Unknown COMPLETE BLOOD COUNT 4545887 HEMOGLOBIN 12.7 g/dL 05/05/19 19 Unknown COMPLETE BLOOD COUNT 6010292 HEMATOCRIT 39.3 % 05/05/19 19 Unknown COMPLETE BLOOD COUNT [id number] MCV 97.8 fL 9 Unknown COMPLETE BLOOD COUNT 4063660 MCH 31.6 pg 9 Unknown COMPLETE BLOOD COUNT 0915689 MCHC 32.3 g/dL 9 Unknown COMPLETE BLOOD COUNT [id number] PLATELET COUNT 213 10e9/L Unknown COMPLETE BLOOD COUNT [id number] Mean Plt Volume 11.7 fL Unknown COMPLETE BLOOD COUNT [id number] Neut Auto 55.7 % 9 Unknown COMPLETE BLOOD COUNT [id number] Lymph Auto 33.2 % 05/05/19 19 Unknown COMPLETE BLOOD COUNT [id number] [place] Auto 8.5 % 9 Unknown COMPLETE BLOOD COUNT [id number] RDW 13.9 % 9 Unknown COMPLETE BLOOD COUNT [id number] Eos Auto 2.4 % 9 Unknown COMPLETE BLOOD COUNT [id number] Baso Auto 0.2 % 9 Unknown COMPLETE BLOOD COUNT [id number] Neutrophil Abs 4.57 10e9/L Unknown COMPLETE BLOOD COUNT [id number] Lymphocyte Abs 2.72 10e9/L Unknown COMPLETE BLOOD COUNT [id number] Monocyte Abs 0.70 10e9/L 04/08 Unknown COMPLETE BLOOD COUNT [id number] Eosinophil Abs 0.20 10e9/L Unknown COMPLETE BLOOD COUNT [id number] RDW-SD 48.8 fL 9 Unknown COMPLETE BLOOD COUNT [id number] Basophil Abs 0.02 10e9/L 04/08 Unknown MICROALBUMIN URINE RANDOM [id number] U Microalbumin 19.3 mg/L 01/19/2018 Unknown MICROALBUMIN URINE RANDOM 21787 U Creatinine 96 mg/dL 1 Unknown MICROALBUMIN URINE RANDOM 51945 ALB/CR Ratio 20.1 mg/gCR 01/19/2018 Unknown [facility] 91596 Cholesterol 173 mg/dL 01/13/2018 Unkno wn [facility] 61873 Triglyceride 386 mg/dL 01/13/2018 Unkn own [facility] 04320 HDL CHOLESTEROL 37 mg/dL 01/13/2018 U nknown [facility] 27185 Chol/HDL Ratio 4.68 ratio 01/13/2018 U nknown [facility] 34554 NON-HDL Chol 136 mg/dL 01/13/2018 Unkn own [facility] 46730 LDL Cholesterol 59 mg/dL 01/13/2018 U nknown COMPLETE BLOOD COUNT [id number] WBC TNP:Client Request 01/13/2018 Unknown COMPLETE BLOOD COUNT [id number] RBC TNP:Client Request 01/13/2018 Unknown COMPLETE BLOOD COUNT [id number] HEMOGLOBIN TNP:Client Request 01/13/2018 Unknown COMPLETE BLOOD COUNT [id number] HEMATOCRIT TNP:Client Request 01/13/2018 Unknown COMPLETE BLOOD COUNT [id number] MCV TNP:Client Request 01/13/2018 Unknown COMPLETE BLOOD COUNT [id number] MCH TNP:Client Request 01/13/2018 Unknown COMPLETE BLOOD COUNT [id number] MCHC TNP:Client Request 01/13/2018 Unknown COMPLETE BLOOD COUNT [id number] PLATELET COUNT TNP:Client Req uest 01/13/2018 Unknown COMPLETE BLOOD COUNT [id number] Mean Plt Volume TNP:Client Re quest 01/13/2018 Unknown COMPLETE BLOOD COUNT [id number] Neut Auto TNP:Client Request 01/13/2018 Unknown COMPLETE BLOOD COUNT [id number] Lymph Auto TNP:Client Request 01/13/2018 Unknown COMPLETE BLOOD COUNT [id number] [place] Auto TNP:Client Request 01/13/2018 Unknown COMPLETE BLOOD COUNT [id number] RDW TNP:Client Request 01/13/2018 Unknown COMPLETE BLOOD COUNT [id number] Eos Auto TNP:Client Request 01/13/2018 Unknown COMPLETE BLOOD COUNT [id number] Baso Auto TNP:Client Request 01/13/2018 Unknown COMPLETE BLOOD COUNT [id number] Neutrophil Abs TNP:Client Req uest 01/13/2018 Unknown COMPLETE BLOOD COUNT [id number] Lymphocyte Abs TNP:Client Req uest 01/13/2018 Unknown COMPLETE BLOOD COUNT [id number] Monocyte Abs TNP:Client Reque st 01/13/2018 Unknown COMPLETE BLOOD COUNT [id number] Eosinophil Abs TNP:Client Req uest 01/13/2018 Unknown COMPLETE BLOOD COUNT [id number] Basophil Abs TNP:Client Reque st 01/13/2018 Unknown COMPLETE BLOOD COUNT [id number] RDW-SD TNP:Client Request 01/13/2018 Unknown GLYCOSYLATED HEMOGLOBIN TEST 64758 Hgb A1c 20996-4 6.2 % 1 Unknown THYROID STIMULATING HORMONE 95532 TSH 2.764 uIU/mL 01/13/2018 Unknown COMPREHENSIVE METABOLIC 49823 AST 19 U/L 2017 Unknown COMPREHENSIVE METABOLIC 30018 ALT 21 U/L 2017 Unknown COMPREHENSIVE METABOLIC 03256 BUN 16 mg/dL 2017 Unknown COMPREHENSIVE METABOLIC 43027 ALBUMIN 4.2 g/dL 2017 Unknown COMPREHENSIVE METABOLIC 22931 CHLORIDE 105 mmol/L 01/13 Unknown COMPREHENSIVE METABOLIC 14666 Bili Total 0.5 mg/dL 01/13 Unknown COMPREHENSIVE METABOLIC 90856 ALK PHOS 85 U/L 2017 Unknown COMPREHENSIVE METABOLIC 31428 SODIUM 139 mmol/L 01/13 Unknown COMPREHENSIVE METABOLIC 19302 CREATININE 1.07 mg/dL 01/04 Unknown COMPREHENS[facility] MET[facility]OLIC 19372 CALCIUM 9.2 mg/dL 2017 Unknown COMPREHENSIVE METABOLIC 61321 POTASSIUM 4.4 mmol/L 01/13 Unknown COMPREHENSIVE METABOLIC 88265 Total Protein 7.7 g/dL Unknown COMPREHENSIVE METABOLIC 60802 Glucose 130 mg/dL 2017 Unknown COMPREHENSIVE METABOLIC 89274 Bicarbonate 27 mmol/L 01/04 Unknown COMPREHENSIVE METABOLIC 72583 AGAP 7 mmol/L 2017 Unknown PSA EQUIMOLAR JERSON 36892 PSA Total 1.16 ng/mL 8 Unknown MEAN GLUC 0005274 Calc Mean Gluc 131 mg/dL 01/13/2018 Unkn own GFR CALC 8967707 GFR Non Afr Amr >60 mL/min 01/13/2018 Un known GFR CALC 2101313 GFR Afr Amr >60 mL/min 01/13/2018 Unknow n MEAN GLUC 3474501 Calc Mean Gluc 134 mg/dL 10/06/2017 Unkn own GFR CALC 9637200 GFR Non Afr Amr >60 mL/min 10/06/2017 Un known GFR CALC 4052902 GFR Afr Amr >60 mL/min 10/06/2017 Unknow n GLYCOSYLATED HEMOGLOBIN TEST 99651 Hgb A1c 63944-5 6.3 % 0 10/06/2017 Unknown VITAMIN B 12 13690 VITAMIN B12 1202 pg/mL 10/06/2017 Unk nown COMPLETE BLOOD COUNT [id number] WBC 7.4 10e9/L 10/07/19 18 Unknown COMPLETE BLOOD COUNT [id number] RBC 4.24 10e12/L 2017 Unknown COMPLETE BLOOD COUNT [id number] HEMOGLOBIN 13.5 g/dL 10/07/19 18 Unknown COMPLETE BLOOD COUNT [id number] HEMATOCRIT 41.6 % 10/07/19 18 Unknown COMPLETE BLOOD COUNT [id number] MCV 98.1 fL 8 Unknown COMPLETE BLOOD COUNT 9762949 MCH 31.8 pg 8 Unknown COMPLETE BLOOD COUNT 2565999 MCHC 32.5 g/dL 8 Unknown COMPLETE BLOOD COUNT 4543906 PLATELET COUNT 223 10e9/L 06/2017 Unknown COMPLETE BLOOD COUNT [id number] Mean Plt Volume 11.9 fL 06/2017 Unknown COMPLETE BLOOD COUNT 5940721 Neut Auto 58.0 % 8 Unknown COMPLETE BLOOD COUNT 6127203 Lymph Auto 29.7 % 10/07/19 18 Unknown COMPLETE BLOOD COUNT 3015971 [place] Auto 8.3 % 8 Unknown COMPLETE BLOOD COUNT 0721198 RDW 14.0 % 8 Unknown COMPLETE BLOOD COUNT 4359216 Eos Auto 3.7 % 8 Unknown COMPLETE BLOOD COUNT 6309888 Baso Auto 0.3 % 8 Unknown COMPLETE BLOOD COUNT [id number] Neutrophil Abs 4.29 10e9/L Unknown COMPLETE BLOOD COUNT 8767504 Lymphocyte Abs 2.20 10e9/L Unknown COMPLETE BLOOD COUNT [id number] Monocyte Abs 0.61 10e9/L 06/2017 Unknown COMPLETE BLOOD COUNT [id number] Eosinophil Abs 0.27 10e9/L Unknown COMPLETE BLOOD COUNT 8177305 RDW-SD 48.6 fL 8 Unknown COMPLETE BLOOD COUNT [id number] Basophil Abs 0.02 10e9/L 06/2017 Unknown [facility] 65129 Cholesterol 216 mg/dL 10/06/2017 Unkno wn [facility] 93968 Triglyceride 335 mg/dL 10/06/2017 Unkn own [facility] 62360 HDL CHOLESTEROL 33 mg/dL 10/06/2017 U nknown [facility] 79460 Chol/HDL Ratio 6.55 ratio 10/06/2017 U nknown [facility] 31170 NON-HDL Chol 183 mg/dL 10/06/2017 Unkn own [facility] 13117 LDL Cholesterol 116 mg/dL 10/06/2017 U nknown COMPREHENSIVE METABOLIC 11325 AST 15 U/L 2017 Unknown COMPREHENSIVE METABOLIC 06479 ALT 15 U/L 2017 Unknown COMPREHENSIVE METABOLIC 46159 BUN 21 mg/dL 2017 Unknown COMPREHENSIVE METABOLIC 91457 ALBUMIN 4.1 g/dL 2017 Unknown COMPREHENSIVE METABOLIC 12681 CHLORIDE 107 mmol/L 10/06 Unknown COMPREHENSIVE METABOLIC 52550 Bili Total 0.6 mg/dL 10/06 Unknown COMPREHENSIVE METABOLIC 64406 ALK PHOS 68 U/L 2017 Unknown COMPREHENSIVE METABOLIC 16874 SODIUM 140 mmol/L 10/06 Unknown COMPREHENSIVE METABOLIC 10666 CREATININE 1.12 mg/dL 06/2017 Unknown COMPREHENSIVE METABOLIC 90438 CALCIUM 9.7 mg/dL 2017 Unknown COMPREHENSIVE METABOLIC 22658 POTASSIUM 4.6 mmol/L 10/06 Unknown COMPREHENSIVE METABOLIC 00849 Total Protein 6.6 g/dL Unknown COMPREHENSIVE METABOLIC 79192 Glucose 114 mg/dL 2017 Unknown COMPREHENSIVE METABOLIC 44421 Bicarbonate 26 mmol/L 06/2017 Unknown COMPREHENSIVE METABOLIC 17192 AGAP 7 mmol/L 2017 Unknown GLYCOSYLATED HEMOGLOBIN TEST 60566 Hgb A1c 40630-0 6.1 % 1 05/05/2016 Unknown GFR CALC 0839401 GFR Afr Amr >60 mL/min 03/05/2017 Unknow n GFR CALC 2442459 GFR Non Afr Amr >60 mL/min 03/05/2017 Un known MEAN GLUC 7213665 Calc Mean Gluc 128 mg/dL 03/05/2017 Unkn own COMPREHENSIVE METABOLIC 59595 AST 18 U/L 2016 Unknown COMPREHENSIVE METABOLIC 41609 ALT 20 U/L 2016 Unknown COMPREHENSIVE METABOLIC 28168 BUN 15 mg/dL 2016 Unknown COMPREHENSIVE METABOLIC 79102 ALBUMIN 4.3 g/dL 2016 Unknown COMPREHENSIVE METABOLIC 59264 CHLORIDE 105 mmol/L 03/05 Unknown COMPREHENSIVE METABOLIC 14618 Bili Total 0.5 mg/dL 03/05 Unknown COMPREHENSIVE METABOLIC 98078 ALK PHOS 57 U/L 2016 Unknown COMPREHENSIVE METABOLIC 19366 SODIUM 141 mmol/L 03/05 Unknown COMPREHENSIVE METABOLIC 20378 CREATININE 1.07 mg/dL 02/06 Unknown COMPREHENSIVE METABOLIC 82996 CALCIUM 9.3 mg/dL 2016 Unknown COMPREHENSIVE METABOLIC 98862 POTASSIUM 4.8 mmol/L 03/05 Unknown COMPREHENSIVE METABOLIC 29972 Total Protein 6.2 g/dL Unknown COMPREHENSIVE METABOLIC 53740 Glucose 118 mg/dL 2016 Unknown COMPREHENSIVE METABOLIC 83463 Bicarbonate 29 mmol/L 02/06 Unknown COMPREHENSIVE METABOLIC 40868 AGAP 7 mmol/L 2016 Unknown FREE T4 22430 T4 Free 1.38 ng/dL 03/05/2017 Unknown COMPLETE BLOOD COUNT [id number] WBC 8.4 10e9/L 03/05/20 17 Unknown COMPLETE BLOOD COUNT [id number] RBC 4.11 10e12/L 2016 Unknown COMPLETE BLOOD COUNT 2972251 HEMOGLOBIN 12.8 g/dL 03/05/20 17 Unknown COMPLETE BLOOD COUNT 3227696 HEMATOCRIT 40.1 % 03/05/20 17 Unknown COMPLETE BLOOD COUNT 1140705 MCV 97.6 fL 7 Unknown COMPLETE BLOOD COUNT 0169653 MCH 31.1 pg 7 Unknown COMPLETE BLOOD COUNT 8940989 MCHC 31.9 g/dL 7 Unknown COMPLETE BLOOD COUNT 2105717 PLATELET COUNT 184 10e9/L Unknown COMPLETE BLOOD COUNT 7841841 Mean Plt Volume 11.3 fL Unknown COMPLETE BLOOD COUNT 4153007 Neut Auto 62.5 % 7 Unknown COMPLETE BLOOD COUNT 7074473 Lymph Auto 26.4 % 03/05/20 17 Unknown COMPLETE BLOOD COUNT 8717198 [place] Auto 7.9 % 7 Unknown COMPLETE BLOOD COUNT 5722525 RDW 13.5 % 7 Unknown COMPLETE BLOOD COUNT 2816695 Eos Auto 3.0 % 7 Unknown COMPLETE BLOOD COUNT 4309695 Baso Auto 0.2 % 7 Unknown COMPLETE BLOOD COUNT 3158821 Neutrophil Abs 5.25 10e9/L Unknown COMPLETE BLOOD COUNT 9277952 Lymphocyte Abs 2.22 10e9/L Unknown COMPLETE BLOOD COUNT [id number] Monocyte Abs 0.66 10e9/L 02/06 Unknown COMPLETE BLOOD COUNT [id number] Eosinophil Abs 0.25 10e9/L Unknown COMPLETE BLOOD COUNT [id number] RDW-SD 46.7 fL 7 Unknown COMPLETE BLOOD COUNT 3603956 Basophil Abs 0.02 10e9/L 02/06 Unknown THYROID STIMULATING HORMONE 10495 TSH 2.330 uIU/mL 03/05/2017 Unknown [facility] 99676 Cholesterol 135 mg/dL 03/05/2017 Unkno wn [facility] 38522 Triglyceride 297 mg/dL 03/05/2017 Unkn own [facility] 24702 HDL CHOLESTEROL 34 mg/dL 03/05/2017 U nknown [facility] 92100 Chol/HDL Ratio 3.97 ratio 03/05/2017 U nknown [facility] 16159 NON-HDL Chol 101 mg/dL 03/05/2017 Unkn own [facility] 08670 LDL Cholesterol 42 mg/dL 03/05/2017 U nknown GLYCOSYLATED HEMOGLOBIN TEST 17165 Hgb A1c 21421-1 6.5 % 1 05/07/2015 Unknown GFR CALC 4456492 GFR Afr Amr >60 mL/min 03/06/2016 Unknow n GFR CALC 8707964 GFR Non Afr Amr 55 mL/min 03/06/2016 Unk nown COMPLETE BLOOD COUNT 7574098 WBC 8.5 10e9/L 03/06/20 16 Unknown COMPLETE BLOOD COUNT 2357576 RBC 4.32 10e12/L 2015 Unknown COMPLETE BLOOD COUNT 9489966 HEMOGLOBIN 13.5 g/dL 03/06/20 16 Unknown COMPLETE BLOOD COUNT 7238973 HEMATOCRIT 41.3 % 03/06/20 16 Unknown COMPLETE BLOOD COUNT 6037145 MCV 95.6 fL 6 Unknown COMPLETE BLOOD COUNT 5860565 MCH 31.3 pg 6 Unknown COMPLETE BLOOD COUNT 6232943 MCHC 32.7 g/dL 6 Unknown COMPLETE BLOOD COUNT 5570262 PLATELET COUNT 191 10e9/L 04/2015 Unknown COMPLETE BLOOD COUNT 4496270 Mean Plt Volume 11.7 fL 04/2015 Unknown COMPLETE BLOOD COUNT 4312133 Neut Auto 64.2 % 6 Unknown COMPLETE BLOOD COUNT 2846208 Lymph Auto 25.9 % 03/06/20 16 Unknown COMPLETE BLOOD COUNT 9517983 [place] Auto 7.8 % 6 Unknown COMPLETE BLOOD COUNT 4514160 RDW 13.4 % 6 Unknown COMPLETE BLOOD COUNT 3009498 Eos Auto 2.0 % 6 Unknown COMPLETE BLOOD COUNT 9632998 Baso Auto 0.1 % 6 Unknown COMPLETE BLOOD COUNT 2031721 Neutrophil Abs 5.46 10e9/L Unknown COMPLETE BLOOD COUNT 7560893 Lymphocyte Abs 2.20 10e9/L Unknown COMPLETE BLOOD COUNT 5286679 Monocyte Abs 0.66 10e9/L 04/2015 Unknown COMPLETE BLOOD COUNT [id number] Eosinophil Abs 0.17 10e9/L Unknown COMPLETE BLOOD COUNT [id number] Basophil Abs 0.01 10e9/L 04/2015 Unknown COMPLETE BLOOD COUNT 1110150 RDW-SD 45.0 fL 6 Unknown FREE T4 19793 T4 Free 1.34 ng/dL 03/06/2016 Unknown MEAN GLUC 1714080 Calc Mean Gluc 140 mg/dL 03/06/2016 Unkn own COMPREHENSIVE METABOLIC 06210 AST 15 U/L 2015 Unknown COMPREHENSIVE METABOLIC 61424 ALT 18 U/L 2015 Unknown COMPREHENSIVE METABOLIC 60832 BUN 21 mg/dL 2015 Unknown COMPREHENSIVE METABOLIC 27086 ALBUMIN 4.3 g/dL 2015 Unknown COMPREHENSIVE METABOLIC 16148 CHLORIDE 103 mmol/L 03/06 Unknown COMPREHENSIVE METABOLIC 55304 Bili Total 0.4 mg/dL 03/06 Unknown COMPREHENSIVE METABOLIC 68947 ALK PHOS 68 U/L 2015 Unknown COMPREHENSIVE METABOLIC 34974 SODIUM 140 mmol/L 03/06 Unknown COMPREHENSIVE METABOLIC 35073 CREATININE 1.31 mg/dL 04/2015 Unknown COMPREHENSIVE METABOLIC 32677 CALCIUM 9.4 mg/dL 2015 Unknown COMPREHENSIVE METABOLIC 81897 POTASSIUM 4.8 mmol/L 03/06 Unknown COMPREHENSIVE METABOLIC 91986 Total Protein 6.6 g/dL Unknown COMPREHENSIVE METABOLIC 36739 Glucose 142 mg/dL 2015 Unknown COMPREHENSIVE METABOLIC 46567 Bicarbonate 29 mmol/L 04/2015 Unknown COMPREHENSIVE METABOLIC 79259 AGAP 8 mmol/L 2015 Unknown THYROID STIMULATING HORMONE 59044 TSH 2.288 uIU/mL 03/06/2016 Unknown [facility] 64235 Cholesterol 154 mg/dL 03/06/2016 Unkno wn [facility] 33748 Triglyceride 266 mg/dL 03/06/2016 Unkn own [facility] 90510 HDL CHOLESTEROL 38 mg/dL 03/06/2016 U nknown [facility] 56596 Chol/HDL Ratio 4.05 ratio 03/06/2016 U nknown [facility] 17162 NON-HDL Chol 116 mg/dL 03/06/2016 Unkn own [facility] 34660 LDL Cholesterol 63 mg/dL 03/06/2016 U nknown MEAN GLUC 5785336 Mean Glucose 128 mg/dL 08/31/2015 Unknow n COMPLETE BLOOD COUNT 7947390 WBC 8.4 10e9/L 08/31/19 16 Unknown COMPLETE BLOOD COUNT 6333562 RBC 4.12 10e12/L 2015 Unknown COMPLETE BLOOD COUNT 6143856 HEMOGLOBIN 12.8 g/dL 08/31/19 16 Unknown COMPLETE BLOOD COUNT 7276904 HEMATOCRIT 39.6 % 08/31/19 16 Unknown COMPLETE BLOOD COUNT 7743224 MCV 96.1 fL 6 Unknown COMPLETE BLOOD COUNT 7356390 MCH 31.1 pg 6 Unknown COMPLETE BLOOD COUNT 3445554 MCHC 32.3 g/dL 6 Unknown COMPLETE BLOOD COUNT 7410286 PLATELET COUNT 184 10e9/L Unknown COMPLETE BLOOD COUNT 3638754 Mean Plt Volume 12.0 fL Unknown COMPLETE BLOOD COUNT 8331215 Neut Auto 59.8 % 6 Unknown COMPLETE BLOOD COUNT [id number] Lymph Auto 27.9 % 08/31/19 16 Unknown COMPLETE BLOOD COUNT 6626382 [place] Auto 9.1 % 6 Unknown COMPLETE BLOOD COUNT 6416302 RDW 13.6 % 6 Unknown COMPLETE BLOOD COUNT 0940824 Eos Auto 3.1 % 6 Unknown COMPLETE BLOOD COUNT 4340444 Baso Auto 0.1 % 6 Unknown COMPLETE BLOOD COUNT 4469245 Neutrophil Abs 5.02 10e9/L Unknown COMPLETE BLOOD COUNT 4531384 Lymphoctye Abs 2.34 10e9/L Unknown COMPLETE BLOOD COUNT 4659879 Monocyte Abs 0.76 10e9/L 08/05 Unknown COMPLETE BLOOD COUNT 5041256 Eosinophil Abs 0.26 10e9/L Unknown COMPLETE BLOOD COUNT 2769012 RDW-SD 46.3 fL 6 Unknown COMPLETE BLOOD COUNT 2877501 Basophil Abs 0.01 10e9/L 08/05 Unknown GLYCOSYLATED HEMOGLOBIN TEST 72125 Hgb A1c 81714-8 6.1 % 0 08/31/2015 Unknown GFR CALC 5240709 GFR Afr Amr >60 mL/min 08/31/2015 Unknow n GFR CALC 4162360 GFR Non Afr Amr >60 mL/min 08/31/2015 Un known FREE T4 20867 T4 Free 1.21 ng/dL 08/31/2015 Unknown THYROID STIMULATING HORMONE 76036 TSH 2.988 uIU/mL 08/31/2015 Unknown COMPREHENSIVE METABOLIC 86529 AST 16 U/L 2015 Unknown COMPREHENSIVE METABOLIC 11237 ALT 19 U/L 2015 Unknown COMPREHENSIVE METABOLIC 74935 BUN 17 mg/dL 2015 Unknown COMPREHENSIVE METABOLIC 62235 ALBUMIN 4.3 g/dL 2015 Unknown COMPREHENSIVE METABOLIC 97990 CHLORIDE 107 mmol/L 08/30 Unknown COMPREHENSIVE METABOLIC 54053 Bili Total 0.4 mg/dL 08/30 Unknown COMPREHENSIVE METABOLIC 03256 ALK PHOS 66 U/L 2015 Unknown COMPREHENSIVE METABOLIC 87767 SODIUM 140 mmol/L 08/30 Unknown COMPREHENSIVE METABOLIC 18369 CREATININE 1.07 mg/dL 08/05 Unknown COMPREHENSIVE METABOLIC 22097 CALCIUM 9.5 mg/dL 2015 Unknown COMPREHENSIVE METABOLIC 70922 POTASSIUM 4.5 mmol/L 08/30 Unknown COMPREHENSIVE METABOLIC 70347 Total Protein 6.7 g/dL Unknown COMPREHENSIVE METABOLIC 50786 Glucose 122 mg/dL 2015 Unknown COMPREHENSIVE METABOLIC 06370 Bicarbonate 26 mmol/L 08/05 Unknown COMPREHENSIVE METABOLIC 06927 AGAP 7 mmol/L 2015 Unknown [facility] 60109 Cholesterol 171 mg/dL 08/31/2015 Unkno wn [facility] 54496 Triglyceride 428 mg/dL 08/31/2015 Unkn own [facility] 81063 HDL CHOLESTEROL 35 mg/dL 08/31/2015 U nknown [facility] 13239 Chol/HDL Ratio 4.89 ratio 08/31/2015 U nknown [facility] 16217 NON-HDL Chol 136 mg/dL 08/31/2015 Unkn own [facility] 38931 LDL Cholesterol 50 mg/dL 08/31/2015 U nknown PSA EQUIMOLAR JERSON 78197 PSA Total 0.47 ng/mL 6 Unknown GFR CALC 5702327 GFR AA >60 ML/MIN 01/12/2015 Unknown GFR CALC 6148167 GFR NON-AA >60 ML/MIN 01/12/2015 Unknown COMPREHENSIVE METABOLIC 01887 AST 18 U/L 2014 Unknown COMPREHENSIVE METABOLIC 82103 ALT 19 IU/L 2014 Unknown COMPREHENSIVE METABOLIC 73875 BUN 19 MG/DL 2014 Unknown COMPREHENSIVE METABOLIC 15315 ALBUMIN 4.7 GM/DL 2014 Unknown COMPREHENSIVE METABOLIC 49559 CHLORIDE 104 MMOL/L 01/12 Unknown COMPREHENSIVE METABOLIC 98145 BILI TOT 0.8 MG/DL 2014 Unknown COMPREHENSIVE METABOLIC 66281 ALK PHOS 58 U/L 2014 Unknown COMPREHENSIVE METABOLIC 82708 SODIUM 139 MMOL/L 01/12 Unknown COMPREHENSIVE METABOLIC 54220 CREATININE 1.09 MG/DL 12/2014 Unknown COMPREHENSIVE METABOLIC 21003 CALCIUM 9.6 MG/DL 2014 Unknown COMPREHENSIVE METABOLIC 05132 POTASSIUM 4.4 MMOL/L 01/12 Unknown COMPREHENSIVE METABOLIC 94651 PROT TOT 6.7 GM/DL 2014 Unknown COMPREHENSIVE METABOLIC 70032 Glucose 109 MG/DL 2014 Unknown COMPREHENSIVE METABOLIC 15348 BICARB 27 MMOL/L 2014 Unknown COMPREHENSIVE METABOLIC 89800 ANION GAP 8 MEQ/L 2014 Unknown [facility] 53406 HDL TEST 36 MG/DL 01/12/2015 Unknown [facility] 78012 TRIG 220 MG/DL 01/12/2015 Unknown [facility] 75870 TEST LDL 58 MG/DL 01/12/2015 Unknown [facility] 93772 CHOL 138 MG/DL 01/12/2015 Unknown [facility] 81026 RCHOL/HDL 3.83 RATIO 01/12/2015 Unknow n [facility] 59139 NON-HDL CH 102 MG/DL 01/12/2015 Unknow n GLYCOSYLATED HEMOGLOBIN TEST 27850 A1C HPLC 53949-1 6.1 % 1 Unknown COMPLETE BLOOD COUNT 4174805 WBC 7.1 10e9/L 01/13/20 15 Unknown COMPLETE BLOOD COUNT 2443038 RBC 4.38 10e12/L 2014 Unknown COMPLETE BLOOD COUNT 1512465 HGB 13.7 g/dL 5 Unknown COMPLETE BLOOD COUNT 7317347 HCT DET 41.3 % 5 Unknown COMPLETE BLOOD COUNT 4430335 MCV 94.3 fL 5 Unknown COMPLETE BLOOD COUNT 7755607 MCH 31.3 pg 5 Unknown COMPLETE BLOOD COUNT 2183627 MCHC 33.2 g/dL 5 Unknown COMPLETE BLOOD COUNT 3390905 PLT 174 10e9/L 01/13/20 15 Unknown COMPLETE BLOOD COUNT 0078615 MPV 11.8 fL 5 Unknown COMPLETE BLOOD COUNT 0917431 SAMIR % 61.3 % 5 Unknown COMPLETE BLOOD COUNT 0301263 LY % 28.3 % 5 Unknown COMPLETE BLOOD COUNT 8198696 MON % 7.6 % 5 Unknown COMPLETE BLOOD COUNT 2609989 EOS % 2.7 % 5 Unknown COMPLETE BLOOD COUNT 5196956 BASO % 0.1 % 5 Unknown COMPLETE BLOOD COUNT 8040718 RDW 13.1 % 5 Unknown COMPLETE BLOOD COUNT 4870045 ABS SAMIR 4.35 10e9/L 015 Unknown COMPLETE BLOOD COUNT 4769210 ABS LYMPH 2.01 10e9/L 015 Unknown COMPLETE BLOOD COUNT 3955029 ABS MONO 0.54 10e9/L 015 Unknown COMPLETE BLOOD COUNT 4165320 ABS EOS 0.19 10e9/L 015 Unknown COMPLETE BLOOD COUNT 4005062 ABS BASO 0.01 10e9/L 015 Unknown COMPLETE BLOOD COUNT 7198435 RDW-SD 43.9 fL 5 Unknown GLYCOSYLATED HEMOGLOBIN TEST 63477 A1C HPLC 25711-4 6.1 % 0 08/15/2014 Unknown COMPLETE BLOOD COUNT 7929672 WBC 9.7 10e9/L 08/16/19 15 Unknown COMPLETE BLOOD COUNT 8260981 RBC 4.29 10e12/L 2014 Unknown COMPLETE BLOOD COUNT 7931738 HGB 13.3 g/dL 5 Unknown COMPLETE BLOOD COUNT 6049224 HCT DET 40.5 % 5 Unknown COMPLETE BLOOD COUNT 1945851 MCV 94.4 fL 5 Unknown COMPLETE BLOOD COUNT 3667583 MCH 31.0 pg 5 Unknown COMPLETE BLOOD COUNT 8206212 MCHC 32.8 g/dL 5 Unknown COMPLETE BLOOD COUNT 6435850 PLT 227 10e9/L 08/16/19 15 Unknown COMPLETE BLOOD COUNT 4854473 MPV 11.0 fL 5 Unknown COMPLETE BLOOD COUNT 8658754 SAMIR % 66.4 % 5 Unknown COMPLETE BLOOD COUNT 5019886 LY % 23.7 % 5 Unknown COMPLETE BLOOD COUNT 9778670 MON % 8.1 % 5 Unknown COMPLETE BLOOD COUNT 8699691 EOS % 1.6 % 5 Unknown COMPLETE BLOOD COUNT 8187923 BASO % 0.2 % 5 Unknown COMPLETE BLOOD COUNT 2972180 RDW 13.4 % 5 Unknown COMPLETE BLOOD COUNT 5755706 ABS SAMIR 6.44 10e9/L 015 Unknown COMPLETE BLOOD COUNT 0324463 ABS LYMPH 2.30 10e9/L 015 Unknown COMPLETE BLOOD COUNT 7557158 ABS MONO 0.79 10e9/L 015 Unknown COMPLETE BLOOD COUNT 5493848 ABS EOS 0.16 10e9/L 015 Unknown COMPLETE BLOOD COUNT 1515740 ABS BASO 0.02 10e9/L 015 Unknown COMPLETE BLOOD COUNT 7721631 RDW-SD 44.7 fL 5 Unknown COMPREHENSIVE METABOLIC 41408 AST 17 U/L 2014 Unknown COMPREHENSIVE METABOLIC 34212 ALT 23 IU/L 2014 Unknown COMPREHENSIVE METABOLIC 85879 BUN 16 MG/DL 2014 Unknown COMPREHENSIVE METABOLIC 52698 ALBUMIN 4.3 GM/DL 2014 Unknown COMPREHENSIVE METABOLIC 80479 CHLORIDE 107 MMOL/L 08/15 Unknown COMPREHENSIVE METABOLIC 66601 BILI TOT 0.4 MG/DL 2014 Unknown COMPREHENSIVE METABOLIC 39838 ALK PHOS 91 U/L 2014 Unknown COMPREHENSIVE METABOLIC 37865 SODIUM 139 MMOL/L 08/15 Unknown COMPREHENSIVE METABOLIC 67069 CREATININE 1.07 MG/DL 08/04 Unknown COMPREHENSIVE METABOLIC 59552 CALCIUM 9.6 MG/DL 2014 Unknown COMPREHENSIVE METABOLIC 04035 POTASSIUM 4.6 MMOL/L 08/15 Unknown COMPREHENSIVE METABOLIC 51828 PROT TOT 6.7 GM/DL 2014 Unknown COMPREHENSIVE METABOLIC 27027 Glucose 111 MG/DL 2014 Unknown COMPREHENSIVE METABOLIC 30503 BICARB 27 MMOL/L 2014 Unknown COMPREHENSIVE METABOLIC 74013 ANION GAP 5 MEQ/L 2014 Unknown GFR CALC 4451902 GFR AA >60 ML/MIN 08/15/2014 Unknown GFR CALC 0875299 GFR NON-AA >60 ML/MIN 08/15/2014 Unknown THYROID STIMULATING HORMONE 78109 TSH 1.598 uIU/ML 08/15/2014 Unknown LIPID GROUP 43736 HDL TEST 33 MG/DL 08/15/2014 Unknown L[facility] GROUP 09324 TRIG 187 MG/DL 08/15/2014 Unknown LIP[facility] GROUP 05561 TEST LDL 58 MG/DL 08/15/2014 Unknown LIP[facility] GROUP 50640 CHOL 128 MG/DL 08/15/2014 Unknown LIP[facility] GROUP 43214 RCHOL/HDL 3.88 RATIO 08/15/2014 Unknow n LIPID GROUP 38804 NON-HDL CH 95 MG/DL 08/15/2014 Unknow n PSA EQUIMOLAR JERSON 77367 PSA EQ 0.70 NG/ML 5 Unknown FREE T4 33096 FREE T4 1.32 NG/DL 08/15/2014 Unknown GFR CALC 6700038 GFR AA >60 ML/MIN 12/14/2013 Unknown GFR CALC 6749456 GFR NON-AA 58.0L ML/MIN 12/14/2013 Unkno wn COMPLETE BLOOD COUNT 3129974 WBC 8.7 10e9/L 12/15/19 14 Unknown COMPLETE BLOOD COUNT 2651019 RBC 4.32 10e12/L 2013 Unknown COMPLETE BLOOD COUNT 9102475 HGB 13.5 g/dL 4 Unknown COMPLETE BLOOD COUNT 9238572 HCT DET 40.6 % 4 Unknown COMPLETE BLOOD COUNT 5047624 MCV 94.0 fL 4 Unknown COMPLETE BLOOD COUNT 5063717 MCH 31.3 pg 4 Unknown COMPLETE BLOOD COUNT 6200511 MCHC 33.3 g/dL 4 Unknown COMPLETE BLOOD COUNT 1575475 PLT 205 10e9/L 12/15/19 14 Unknown COMPLETE BLOOD COUNT 5036402 MPV 11.7 fL 4 Unknown COMPLETE BLOOD COUNT 0584897 SAMIR % 62.5 % 4 Unknown COMPLETE BLOOD COUNT 5306263 LY % 26.9 % 4 Unknown COMPLETE BLOOD COUNT 4366155 MON % 8.8 % 4 Unknown COMPLETE BLOOD COUNT 0015835 EOS % 1.7 % 4 Unknown COMPLETE BLOOD COUNT 7101338 BASO % 0.1 % 4 Unknown COMPLETE BLOOD COUNT 1405166 RDW 13.4 % 4 Unknown COMPLETE BLOOD COUNT 6057178 ABS SAMIR 5.44 10e9/L 014 Unknown COMPLETE BLOOD COUNT 7452666 ABS LYMPH 2.34 10e9/L 014 Unknown COMPLETE BLOOD COUNT [id number] ABS MONO 0.77 10e9/L 014 Unknown COMPLETE BLOOD COUNT 4739659 ABS EOS 0.15 10e9/L 014 Unknown COMPLETE BLOOD COUNT 1294104 ABS BASO 0.01 10e9/L 014 Unknown COMPLETE BLOOD COUNT 1594278 RDW-SD 44.7 fL 4 Unknown COMPREHENSIVE METABOLIC 82389 AST 14 U/L 2013 Unknown COMPREHENSIVE METABOLIC 05998 ALT 12 IU/L 2013 Unknown COMPREHENSIVE METABOLIC 54815 BUN 24 MG/DL 2013 Unknown COMPREHENSIVE METABOLIC 18452 ALBUMIN 4.5 GM/DL 2013 Unknown COMPREHENSIVE METABOLIC 65745 CHLORIDE 104 MMOL/L 12/14 Unknown COMPREHENSIVE METABOLIC 33315 BILI TOT 0.6 MG/DL 2013 Unknown COMPREHENSIVE METABOLIC 49875 ALK PHOS 82 U/L 2013 Unknown COMPREHENSIVE METABOLIC 73121 SODIUM 135 MMOL/L 12/14 Unknown COMPREHENSIVE METABOLIC 45364 CREATININE 1.25 MG/DL 12/05 Unknown COMPREHENSIVE METABOLIC 15381 CALCIUM 9.8 MG/DL 2013 Unknown COMPREHENSIVE METABOLIC 01051 POTASSIUM 4.7 MMOL/L 12/14 Unknown COMPREHENSIVE METABOLIC 46133 PROT TOT 6.7 GM/DL 2013 Unknown COMPREHENSIVE METABOLIC 06401 Glucose 126 MG/DL 2013 Unknown COMPREHENSIVE METABOLIC 89541 BICARB 27 MMOL/L 2013 Unknown COMPREHENSIVE METABOLIC 74262 ANION GAP 4 MEQ/L 2013 Unknown THYROID STIMULATING HORMONE 40873 TSH 3.281 uIU/ML 12/14/2013 Unknown FREE T4 71401 FREE T4 1.28 NG/DL 12/14/2013 Unknown LIPID GROUP 41568 HDL TEST 36 MG/DL 12/14/2013 Unknown LIPID GROUP 08013 TRIG 253 MG/DL 12/14/2013 Unknown LIPID GROUP 24418 TEST LDL 56 MG/DL 12/14/2013 Unknown LIPID GROUP 17332 CHOL 143 MG/DL 12/14/2013 Unknown LIPID GROUP 72228 RCHOL/HDL 3.97 RATIO 12/14/2013 Unknow n LIPID GROUP 22087 NON-HDL CH 107 MG/DL 12/14/2013 Unknow n GLYCOSYLATED HEMOGLOBIN TEST 31141 A1C HPLC 92599-7 6.1 % 0 12/14/2013 Unknown GLYCOSYLATED HEMOGLOBIN TEST 56071 A1C HPLC 88112-9 6.0 % 0 06/08/2013 Unknown LIPID GROUP 54506 HDL TEST 39 MG/DL 06/08/2013 Unknown LIPID GROUP 99821 TRIG 166 MG/DL 06/08/2013 Unknown LIPID GROUP 35969 TEST LDL 86 MG/DL 06/08/2013 Unknown LIPID GROUP 58112 CHOL 158 MG/DL 06/08/2013 Unknown LIPID GROUP 28387 RCHOL/HDL 4.05 RATIO 06/08/2013 Unknow n COMPREHENSIVE METABOLIC 79555 AST 17 U/L 2013 Unknown COMPREHENSIVE METABOLIC 42356 ALT 25 IU/L 2013 Unknown COMPREHENSIVE METABOLIC 38806 BUN 18 MG/DL 2013 Unknown COMPREHENSIVE METABOLIC 25355 ALBUMIN 4.5 GM/DL 2013 Unknown COMPREHENSIVE METABOLIC 37240 CHLORIDE 103 MMOL/L 06/08 Unknown COMPREHENSIVE METABOLIC 44271 BILI TOT 0.4 MG/DL 2013 Unknown COMPREHENSIVE METABOLIC 33308 ALK PHOS 72 U/L 2013 Unknown COMPREHENSIVE METABOLIC 10276 SODIUM 137 MMOL/L 06/08 Unknown COMPREHENSIVE METABOLIC 08600 CREATININE 1.07 MG/DL 08/2013 Unknown COMPREHENSIVE METABOLIC 84671 CALCIUM 9.7 MG/DL 2013 Unknown COMPREHENSIVE METABOLIC 52650 POTASSIUM 4.7 MMOL/L 06/08 Unknown COMPREHENSIVE METABOLIC 27147 PROT TOT 6.6 GM/DL 2013 Unknown COMPREHENSIVE METABOLIC 34921 Glucose 130 MG/DL 2013 Unknown COMPREHENSIVE METABOLIC 91762 BICARB 25 MMOL/L 2013 Unknown COMPREHENSIVE METABOLIC 94888 ANION GAP 9 MEQ/L 2013 Unknown FREE T4 31014 FREE T4 1.29 NG/DL 06/08/2013 Unknown THYROID STIMULATING HORMONE 68852 TSH 2.445 uIU/ML 06/08/2013 Unknown GFR CALC 1823405 GFR AA >60 ML/MIN 06/08/2013 Unknown GFR CALC 8725834 GFR NON-AA >60 ML/MIN 06/08/2013 Unknown COMPLETE BLOOD COUNT 9460950 WBC 8.2 10e9/L 06/09/19 14 Unknown COMPLETE BLOOD COUNT [id number] RBC 4.63 10e12/L 2013 Unknown COMPLETE BLOOD COUNT 9621788 HGB 14.1 g/dL 4 Unknown COMPLETE BLOOD COUNT [id number] HCT DET 42.6 % 4 Unknown COMPLETE BLOOD COUNT 7761031 MCV 92.0 fL 4 Unknown COMPLETE BLOOD COUNT 1558145 MCH 30.5 pg 4 Unknown COMPLETE BLOOD COUNT [id number] MCHC 33.1 g/dL 4 Unknown COMPLETE BLOOD COUNT [id number] PLT 222 10e9/L 06/09/19 14 Unknown COMPLETE BLOOD COUNT [id number] MPV 10.8 fL 4 Unknown COMPLETE BLOOD COUNT 2837335 SAMIR % 60.8 % 4 Unknown COMPLETE BLOOD COUNT [id number] LY % 29.2 % 4 Unknown COMPLETE BLOOD COUNT [id number] MON % 7.6 % 4 Unknown COMPLETE BLOOD COUNT 7784004 EOS % 2.3 % 4 Unknown COMPLETE BLOOD COUNT [id number] BASO % 0.1 % 4 Unknown COMPLETE BLOOD COUNT 2968969 RDW 13.7 % 4 Unknown COMPLETE BLOOD COUNT [id number] ABS SAMIR 4.99 10e9/L 014 Unknown COMPLETE BLOOD COUNT [id number] ABS LYMPH 2.39 10e9/L 014 Unknown COMPLETE BLOOD COUNT 1786883 ABS MONO 0.62 10e9/L 014 Unknown COMPLETE BLOOD COUNT [id number] ABS EOS 0.19 10e9/L 014 Unknown COMPLETE BLOOD COUNT [id number] ABS BASO 0.01 10e9/L 014 Unknown COMPLETE BLOOD COUNT 8609645 RDW-SD 45.2 fL 4 Unknown LIPID GROUP 87594 HDL TEST 40 MG/DL 11/11/2012 Unknown LIPID GROUP 50266 TRIG 153 MG/DL 11/11/2012 Unknown LIPID GROUP 82348 TEST LDL 71 MG/DL 11/11/2012 Unknown LIPID GROUP 29184 CHOL 142 MG/DL 11/11/2012 Unknown LIPID GROUP 83964 RCHOL/HDL 3.55 RATIO 11/11/2012 Unknow n GFR CALC 0757849 GFR AA >60 ML/MIN 11/11/2012 Unknown GFR CALC 4450451 GFR NON-AA 57.0L ML/MIN 11/11/2012 Unkno wn HEMOGLOBIN A1C (GLYCOSYLATED) 8745018 A1C HPLC 50122-7 5.9 % 11/11/2012 Unknown THYROID STIMULATING HORMONE 29885 TSH 2.439 uIU/ML 11/11/2012 Unknown COMPLETE BLOOD COUNT 1432471 WBC 8.5 10e9/L 11/12/19 13 Unknown COMPLETE BLOOD COUNT [id number] RBC 4.42 10e12/L 2012 Unknown COMPLETE BLOOD COUNT 8351794 HGB 13.7 g/dL 3 Unknown COMPLETE BLOOD COUNT 7617858 HCT DET 41.3 % 3 Unknown COMPLETE BLOOD COUNT 2205808 MCV 93.4 fL 3 Unknown COMPLETE BLOOD COUNT 6372061 MCH 31.0 pg 3 Unknown COMPLETE BLOOD COUNT 5705818 MCHC 33.2 g/dL 3 Unknown COMPLETE BLOOD COUNT [id number] PLT 220 10e9/L 11/12/19 13 Unknown COMPLETE BLOOD COUNT 8763411 MPV 10.8 fL 3 Unknown COMPLETE BLOOD COUNT 1727908 SAMIR % 60.4 % 3 Unknown COMPLETE BLOOD COUNT 8132094 LY % 28.7 % 3 Unknown COMPLETE BLOOD COUNT 1115454 MON % 8.0 % 3 Unknown COMPLETE BLOOD COUNT 3716132 EOS % 2.8 % 3 Unknown COMPLETE BLOOD COUNT [id number] BASO % 0.1 % 3 Unknown COMPLETE BLOOD COUNT 2161727 RDW 13.7 % 3 Unknown COMPLETE BLOOD COUNT 1058373 ABS SAMRI 5.13 10e9/L 013 Unknown COMPLETE BLOOD COUNT [id number] ABS LYMPH 2.44 10e9/L 013 Unknown COMPLETE BLOOD COUNT [id number] ABS MONO 0.68 10e9/L 013 Unknown COMPLETE BLOOD COUNT [id number] ABS EOS 0.24 10e9/L 013 Unknown COMPLETE BLOOD COUNT 8547684 ABS BASO 0.01 10e9/L 013 Unknown COMPLETE BLOOD COUNT 1338453 RDW-SD 45.6 fL 3 Unknown COMPREHENSIVE METABOLIC 21910 AST 19 U/L 2012 Unknown COMPREHENSIVE METABOLIC 69098 ALT 28 IU/L 2012 Unknown COMPREHENSIVE METABOLIC 74127 BUN 31 MG/DL 2012 Unknown COMPREHENSIVE METABOLIC 95158 ALBUMIN 4.7 GM/DL 2012 Unknown COMPREHENSIVE METABOLIC 32540 CHLORIDE 106 MMOL/L 11/11 Unknown COMPREHENSIVE METABOLIC 39695 BILI TOT 0.5 MG/DL 2012 Unknown COMPREHENSIVE METABOLIC 98401 ALK PHOS 64 U/L 2012 Unknown COMPREHENSIVE METABOLIC 80274 SODIUM 136 MMOL/L 11/11 Unknown COMPREHENSIVE METABOLIC 93111 CREATININE 1.27 MG/DL 11/2012 Unknown COMPREHENSIVE METABOLIC 73205 CALCIUM 9.4 MG/DL 2012 Unknown COMPREHENSIVE METABOLIC 72654 POTASSIUM 4.9 MMOL/L 11/11 Unknown COMPREHENSIVE METABOLIC 05631 PROT TOT 6.7 GM/DL 2012 Unknown COMPREHENSIVE METABOLIC 29947 Glucose 108 MG/DL 2012 Unknown COMPREHENSIVE METABOLIC 22393 BICARB 21 MMOL/L 2012 Unknown COMPREHENSIVE METABOLIC 65549 ANION GAP 9 MEQ/L 2012 Unknown THYROID STIMULATING HORMONE 29647 TSH 2.572 uIU/ML 05/04/2012 Unknown COMPLETE BLOOD COUNT [id number] WBC 9.3 10e9/L 05/04/19 13 Unknown COMPLETE BLOOD COUNT [id number] RBC 4.43 10e12/L 2012 Unknown COMPLETE BLOOD COUNT 3883380 HGB 14.2 g/dL 3 Unknown COMPLETE BLOOD COUNT 5848175 HCT DET 41.1 % 3 Unknown COMPLETE BLOOD COUNT 1806081 MCV 92.8 fL 3 Unknown COMPLETE BLOOD COUNT [id number] MCH 32.1 pg 3 Unknown COMPLETE BLOOD COUNT 6804567 MCHC 34.5 g/dL 3 Unknown COMPLETE BLOOD COUNT 9780091 PLT 193 10e9/L 05/04/19 13 Unknown COMPLETE BLOOD COUNT [id number] MPV 10.8 fL 3 Unknown COMPLETE BLOOD COUNT [id number] SAMIR % 63.0 % 3 Unknown COMPLETE BLOOD COUNT 3718012 LY % 25.3 % 3 Unknown COMPLETE BLOOD COUNT 7771003 MON % 9.1 % 3 Unknown COMPLETE BLOOD COUNT 5452561 EOS % 2.5 % 3 Unknown COMPLETE BLOOD COUNT 7015051 BASO % 0.1 % 3 Unknown COMPLETE BLOOD COUNT 7449201 RDW 12.6 % 3 Unknown COMPLETE BLOOD COUNT 7506701 ABS SAMIR 5.86 10e9/L 013 Unknown COMPLETE BLOOD COUNT 9310706 ABS LYMPH 2.35 10e9/L 013 Unknown COMPLETE BLOOD COUNT [id number] ABS MONO 0.85 10e9/L 013 Unknown COMPLETE BLOOD COUNT 2740600 ABS EOS 0.23 10e9/L 013 Unknown COMPLETE BLOOD COUNT 1739649 ABS BASO 0.01 10e9/L 013 Unknown COMPLETE BLOOD COUNT 3515443 RDW-SD 41.2 fL 3 Unknown LIPID GROUP 48246 HDL TEST 35 MG/DL 05/04/2012 Unknown LIPID GROUP 34301 TRIG 236 MG/DL 05/04/2012 Unknown LIPID GROUP 80673 TEST LDL 64 MG/DL 05/04/2012 Unknown LIPID GROUP 91261 CHOL 146 MG/DL 05/04/2012 Unknown LIPID GROUP 31749 RCHOL/HDL 4.17 RATIO 05/04/2012 Unknow n COMPREHENSIVE METABOLIC 86982 AST 23 U/L 2012 Unknown COMPREHENSIVE METABOLIC 60004 ALT 33 IU/L 2012 Unknown COMPREHENSIVE METABOLIC 66621 BUN 16 MG/DL 2012 Unknown COMPREHENSIVE METABOLIC 39474 ALBUMIN 4.8 GM/DL 2012 Unknown COMPREHENSIVE METABOLIC 84042 CHLORIDE 104 MMOL/L 05/04 Unknown COMPREHENSIVE METABOLIC 56606 BILI TOT 0.5 MG/DL 2012 Unknown COMPREHENSIVE METABOLIC 83634 ALK PHOS 70 U/L 2012 Unknown COMPREHENSIVE METABOLIC 00238 SODIUM 138 MMOL/L 05/04 Unknown COMPREHENSIVE METABOLIC 72760 CREATININE 1.08 MG/DL 04/07 Unknown COMPREHENSIVE METABOLIC 40514 CALCIUM 9.7 MG/DL 2012 Unknown COMPREHENSIVE METABOLIC 18126 POTASSIUM 4.4 MMOL/L 05/04 Unknown COMPREHENSIVE METABOLIC 08970 PROT TOT 6.8 GM/DL 2012 Unknown COMPREHENSIVE METABOLIC 77727 Glucose 114 MG/DL 2012 Unknown COMPREHENSIVE METABOLIC 69518 BICARB 27 MMOL/L 2012 Unknown COMPREHENSIVE METABOLIC 93869 ANION GAP 7 MEQ/L 2012 Unknown FREE T4 64174 FREE T4 1.11 NG/DL 05/04/2012 Unknown GFR CALC 0944477 GFR AA >60 ML/MIN 05/04/2012 Unknown GFR CALC 7057671 GFR NON-AA >60 ML/MIN 05/04/2012 Unknown GLYCOSYLATED HEMOGLOBIN TEST 81126 A1C HPLC 36880-7 5.8 % 0 10/29/2011 Unknown COMPREHENSIVE METABOLIC 38126 AST 17 U/L 2011 Unknown COMPREHENSIVE METABOLIC 29363 ALT 21 IU/L 2011 Unknown COMPREHENSIVE METABOLIC 97430 BUN 17 MG/DL 2011 Unknown COMPREHENSIVE METABOLIC 76741 ALBUMIN 4.8 GM/DL 2011 Unknown COMPREHENSIVE METABOLIC 41615 CHLORIDE 106 MMOL/L 10/28 Unknown COMPREHENSIVE METABOLIC 07039 BILI TOT 0.6 MG/DL 2011 Unknown COMPREHENSIVE METABOLIC 36062 ALK PHOS 57 U/L 2011 Unknown COMPREHENSIVE METABOLIC 20937 SODIUM 139 MMOL/L 10/28 Unknown COMPREHENSIVE METABOLIC 32282 CREATININE 1.08 MG/DL 10/05 Unknown COMPREHENSIVE METABOLIC 53385 CALCIUM 9.6 MG/DL 2011 Unknown COMPREHENSIVE METABOLIC 45898 POTASSIUM 4.4 MMOL/L 10/28 Unknown COMPREHENSIVE METABOLIC 07969 PROT TOT 6.9 GM/DL 2011 Unknown COMPREHENSIVE METABOLIC 55912 Glucose 104 MG/DL 2011 Unknown COMPREHENSIVE METABOLIC 03161 BICARB 25 MMOL/L 2011 Unknown COMPREHENSIVE METABOLIC 82542 ANION GAP 8 MEQ/L 2011 Unknown LIPID GROUP 69270 HDL TEST 39 MG/DL 10/29/2011 Unknown LIPID GROUP 82777 TRIG 176 MG/DL 10/29/2011 Unknown LIPID GROUP 16430 TEST LDL 70 MG/DL 10/29/2011 Unknown LIPID GROUP 85065 CHOL 144 MG/DL 10/29/2011 Unknown LIPID GROUP 48599 RCHOL/HDL 3.69 RATIO 10/29/2011 Unknow n GFR CALC 8767873 GFR AA >60 ML/MIN 10/29/2011 Unknown GFR CALC 4339254 GFR NON-AA >60 ML/MIN 10/29/2011 Unknown GFR CALC 0263864 GFR AA >60 ML/MIN 03/14/2011 Unknown GFR CALC 8363276 GFR NON-AA >60 ML/MIN 03/14/2011 Unknown GLYCOSYLATED HEMOGLOBIN TEST 84015 A1C HPLC 72785-0 5.7 % 1 05/15/2010 Unknown COMPREHENSIVE METABOLIC 91751 AST 18 U/L 2010 Unknown COMPREHENSIVE METABOLIC 43006 ALT 25 IU/L 2010 Unknown COMPREHENSIVE METABOLIC 09455 BUN 15 MG/DL 2010 Unknown COMPREHENSIVE METABOLIC 99872 ALBUMIN 4.6 GM/DL 2010 Unknown COMPREHENSIVE METABOLIC 60020 CHLORIDE 107 MMOL/L 03/14 Unknown COMPREHENSIVE METABOLIC 70223 BILI TOT 0.6 MG/DL 2010 Unknown COMPREHENSIVE METABOLIC 78339 ALK PHOS 54 U/L 2010 Unknown COMPREHENSIVE METABOLIC 96644 SODIUM 140 MMOL/L 03/14 Unknown COMPREHENSIVE METABOLIC 86217 CREATININE 1.02 MG/DL 12/2010 Unknown COMPREHENSIVE METABOLIC 28735 CALCIUM 9.4 MG/DL 2010 Unknown COMPREHENSIVE METABOLIC 61384 POTASSIUM 4.6 MMOL/L 03/14 Unknown COMPREHENSIVE METABOLIC 63541 PROT TOT 7.0 GM/DL 2010 Unknown COMPREHENSIVE METABOLIC 10905 Glucose 107 MG/DL 2010 Unknown COMPREHENSIVE METABOLIC 25223 BICARB 28 MMOL/L 2010 Unknown COMPREHENSIVE METABOLIC 05437 ANION GAP 5 MEQ/L 2010 Unknown LIPID GROUP 65645 HDL TEST 39 MG/DL 03/14/2011 Unknown LIPID GROUP 46896 TRIG 157 MG/DL 03/14/2011 Unknown LIPID GROUP 98331 TEST LDL 66 MG/DL 03/14/2011 Unknown LIPID GROUP 23286 CHOL 136 MG/DL 03/14/2011 Unknown LIPID GROUP 60949 RCHOL/HDL 3.49 RATIO 03/14/2011 Unknow n GFR CALC 7320214 GFR AA >60 ML/MIN 11/11/2010 Unknown GFR CALC 6757929 GFR NON-AA >60 ML/MIN 11/11/2010 Unknown LIPID GROUP 05911 HDL TEST 39 MG/DL 11/11/2010 Unknown LIPID GROUP 03930 TRIG 212 MG/DL 11/11/2010 Unknown LIPID GROUP 37804 TEST LDL 67 MG/DL 11/11/2010 Unknown LIPID GROUP 69608 CHOL 148 MG/DL 11/11/2010 Unknown LIPID GROUP 63127 RCHOL/HDL 3.79 RATIO 11/11/2010 Unknow n COMPREHENSIVE METABOLIC 30069 AST 17 U/L 2010 Unknown COMPREHENSIVE METABOLIC 59731 ALT 21 IU/L 2010 Unknown COMPREHENSIVE METABOLIC 61962 BUN 16 MG/DL 2010 Unknown COMPREHENSIVE METABOLIC 76275 ALBUMIN 4.6 GM/DL 2010 Unknown COMPREHENSIVE METABOLIC 59543 CHLORIDE 106 MMOL/L 11/11 Unknown COMPREHENSIVE METABOLIC 03344 BILI TOT 0.5 MG/DL 2010 Unknown COMPREHENSIVE METABOLIC 54350 ALK PHOS 61 U/L 2010 Unknown COMPREHENSIVE METABOLIC 99289 SODIUM 139 MMOL/L 11/11 Unknown COMPREHENSIVE METABOLIC 75009 CREATININE 1.00 MG/DL 11/2010 Unknown COMPREHENSIVE METABOLIC 05247 CALCIUM 9.5 MG/DL 2010 Unknown COMPREHENSIVE METABOLIC 65708 POTASSIUM 4.5 MMOL/L 11/11 Unknown COMPREHENSIVE METABOLIC 35503 PROT TOT 6.9 GM/DL 2010 Unknown COMPREHENSIVE METABOLIC 02369 Glucose 111 MG/DL 2010 Unknown COMPREHENSIVE METABOLIC 45049 BICARB 26 MMOL/L 2010 Unknown COMPREHENSIVE METABOLIC 93567 ANION GAP 7 MEQ/L 2010 Unknown HEMOGLOBIN A1C (GLYCOSYLATED) 62783 A1C HPLC 24683-7 5.6 % 07/24/2010 Unknown GFR CALC 9446998 GFR AA >60 ML/MIN 07/23/2010 Unknown GFR CALC 0901611 GFR NON-AA >60 ML/MIN 07/23/2010 Unknown COMPREHENSIVE METABOLIC 60995 AST 19 U/L 2010 Unknown COMPREHENSIVE METABOLIC 67508 ALT 33 IU/L 2010 Unknown COMPREHENSIVE METABOLIC 43240 BUN 14 MG/DL 2010 Unknown COMPREHENSIVE METABOLIC 78819 ALBUMIN 4.7 GM/DL 2010 Unknown COMPREHENSIVE METABOLIC 43290 CHLORIDE 107 MMOL/L 07/23 Unknown COMPREHENSIVE METABOLIC 53386 BILI TOT 0.4 MG/DL 2010 Unknown COMPREHENSIVE METABOLIC 52908 ALK PHOS 80 U/L 2010 Unknown COMPREHENSIVE METABOLIC 08645 SODIUM 141 MMOL/L 07/23 Unknown COMPREHENSIVE METABOLIC 40415 CREATININE 0.97 MG/DL 07/05 Unknown COMPREHENSIVE METABOLIC 11902 CALCIUM 9.5 MG/DL 2010 Unknown COMPREHENSIVE METABOLIC 46574 POTASSIUM 4.1 MMOL/L 07/23 Unknown COMPREHENSIVE METABOLIC 48478 PROT TOT 6.8 GM/DL 2010 Unknown COMPREHENSIVE METABOLIC 23984 Glucose 120 MG/DL 2010 Unknown COMPREHENSIVE METABOLIC 34071 BICARB 26 MMOL/L 2010 Unknown COMPREHENSIVE METABOLIC 92429 ANION GAP 8 MEQ/L 2010 Unknown LIPID GROUP 39738 HDL TEST 41 MG/DL 07/23/2010 Unknown LIPID GROUP 97001 TRIG 175 MG/DL 07/23/2010 Unknown LIPID GROUP 06083 TEST LDL 72 MG/DL 07/23/2010 Unknown LIPID GROUP 24848 CHOL 148 MG/DL 07/23/2010 Unknown LIPID GROUP 76299 RCHOL/HDL 3.61 RATIO 07/23/2010 Unknow n PSA FREE AND TOTAL 27326|13269 % FREE PSA FOOTNOTE % 011 Unknown PSA FREE AND TOTAL 19055|42062 XPSA TOTAL 0.83 NG/ML 011 Unknown PSA FREE AND TOTAL 96399|23595 XPSA FREE 0.13 NG/ML 04/26/19 11 Unknown VITAMIN D TOTAL (25 HYDROXY) 07042 VIT D TOTL 26 NG/ML 04/22/2010 Unknown TESTOSTERONE TOTAL 31347 TESTOS TO 387 NG/DL 04/19/2010 Unknown GFR CALC 3610200 GFR AA >60 ML/MIN 04/19/2010 Unknown GFR CALC 5193224 GFR NON-AA >60 ML/MIN 04/19/2010 Unknown COMPLETE BLOOD COUNT 96140 WBC 7.0 10e9/L 04/19/19 11 Unknown COMPLETE BLOOD COUNT 81167 RBC 5.07 10e12/L 2010 Unknown COMPLETE BLOOD COUNT 76209 HGB 15.6 g/dL 1 Unknown COMPLETE BLOOD COUNT 02710 HCT DET 46.2 % 1 Unknown COMPLETE BLOOD COUNT 47066 MCV 91.1 fL 1 Unknown COMPLETE BLOOD COUNT 21353 MCH 30.8 pg 1 Unknown COMPLETE BLOOD COUNT 92493 MCHC 33.8 g/dL 1 Unknown COMPLETE BLOOD COUNT 58453 PLT 205 10e9/L 04/19/19 11 Unknown COMPLETE BLOOD COUNT 61875 MPV 11.1 fL 1 Unknown COMPLETE BLOOD COUNT 90631 SAMIR % 62.4 % 1 Unknown COMPLETE BLOOD COUNT 82420 LY % 28.5 % 1 Unknown COMPLETE BLOOD COUNT 58568 MON % 6.9 % 1 Unknown COMPLETE BLOOD COUNT 75167 EOS % 2.1 % 1 Unknown COMPLETE BLOOD COUNT 25458 BASO % 0.1 % 1 Unknown COMPLETE BLOOD COUNT 09445 RDW 13.4 % 1 Unknown COMPLETE BLOOD COUNT 23208 ABS SAMIR 4.37 10e9/L 011 Unknown COMPLETE BLOOD COUNT 50134 ABS LYMPH 2.00 10e9/L 011 Unknown COMPLETE BLOOD COUNT 15407 ABS MONO 0.48 10e9/L 011 Unknown COMPLETE BLOOD COUNT 39127 ABS EOS 0.15 10e9/L 011 Unknown COMPLETE BLOOD COUNT 74531 ABS BASO 0.01 10e9/L 011 Unknown COMPLETE BLOOD COUNT 91455 RDW-SD 43.8 fL 1 Unknown LIPID GROUP 25830 HDL TEST 39 MG/DL 04/19/2010 Unknown LIPID GROUP 62373 TRIG 244 MG/DL 04/19/2010 Unknown LIPID GROUP 38995 TEST LDL 168 MG/DL 04/19/2010 Unknown LIPID GROUP 89127 CHOL 256 MG/DL 04/19/2010 Unknown LIPID GROUP 29426 RCHOL/HDL 6.56 RATIO 04/19/2010 Unknow n COMPREHENSIVE METABOLIC 00861 AST 28 U/L 2010 Unknown COMPREHENSIVE METABOLIC 75783 ALT 46 IU/L 2010 Unknown COMPREHENSIVE METABOLIC 31429 BUN 14 MG/DL 2010 Unknown COMPREHENSIVE METABOLIC 20482 ALBUMIN 4.9 GM/DL 2010 Unknown COMPREHENSIVE METABOLIC 19245 CHLORIDE 104 MMOL/L 04/19 Unknown COMPREHENSIVE METABOLIC 84791 BILI TOT 0.8 MG/DL 2010 Unknown COMPREHENSIVE METABOLIC 04415 ALK PHOS 71 U/L 2010 Unknown COMPREHENSIVE METABOLIC 94308 SODIUM 139 MMOL/L 04/19 Unknown COMPREHENSIVE METABOLIC 08069 CREATININE 1.06 MG/DL 04/06 Unknown COMPREHENSIVE METABOLIC 98397 CALCIUM 9.9 MG/DL 2010 Unknown COMPREHENSIVE METABOLIC 26088 POTASSIUM 4.3 MMOL/L 04/19 Unknown COMPREHENSIVE METABOLIC 75668 PROT TOT 7.2 GM/DL 2010 Unknown COMPREHENSIVE METABOLIC 27869 Glucose 99 MG/DL 2010 Unknown COMPREHENSIVE METABOLIC 79860 BICARB 28 MMOL/L 2010 Unknown COMPREHENSIVE METABOLIC 67871 ANION GAP 7 MEQ/L 2010 Unknown FREE T4 59597 FREE T4 1.26 NG/DL 04/19/2010 Unknown Procedures Procedure Codes Date FLU VACC PRSV FREE INC ANTIG 65 AND OLDER CPT-4: 62819 01/26/2019 FLU VACC PRSV FREE INC ANTIG 65 AND OLDER CPT-4: 40148 01/26/2019 ADMIN INFLUENZA VIRUS VAC CPT-4: G0008 01/26/2019 ROUTINE VENIPUNCTURE CPT-4: 21187 01/26/2019 COMPREHEN METABOLIC PANEL CPT-4: 28783 01/26/2019 COMPLETE CBC W/AUTO DIFF WBC CPT-4: 32476 01/26/2019 LIPID PANEL CPT-4: 67286 01/26/2019 A1C HPLC CPT-4: 00797 01/26/2019 ROUTINE VENIPUNCTURE CPT-4: 29978 09/30/2018 METABOLIC PANEL TOTAL CA CPT-4: 13273 09/30/2018 URINALYSIS NONAUTO W/O SCOPE CPT-4: 39140 08/19/2018 URINE CULTURE/ COLONY COUNT CPT-4: 37096 08/19/2018 MICROALBUMIN QUANTITATIVE CPT-4: 61129 08/19/2018 ROUTINE VENIPUNCTURE CPT-4: 36485 08/16/2018 ASSAY THYROID STIM HORMONE CPT-4: 39855 08/16/2018 COMPREHEN METABOLIC PANEL CPT-4: 41188 08/16/2018 COMPLETE CBC W/AUTO DIFF WBC CPT-4: 33239 08/16/2018 LIPID PANEL CPT-4: 18693 08/16/2018 A1C HPLC CPT-4: 46413 08/16/2018 LIPID PANEL CPT-4: 37416 05/05/2018 COMPREHEN METABOLIC PANEL CPT-4: 07308 05/05/2018 ROUTINE VENIPUNCTURE CPT-4: 65105 05/05/2018 A1C HPLC CPT-4: 53602 05/05/2018 COMPLETE CBC W/AUTO DIFF WBC CPT-4: 32612 05/05/2018 ASSAY THYROID STIM HORMONE CPT-4: 28588 05/05/2018 MICROALBUMIN QUANTITATIVE CPT-4: 70045 01/19/2018 PRESCRIP TRANSMIT VIA ERX SY CPT-4: G8553 01/19/2018 ROUTINE VENIPUNCTURE CPT-4: 66066 01/13/2018 COMPREHEN METABOLIC PANEL CPT-4: 54889 01/13/2018 A1C HPLC CPT-4: 94009 01/13/2018 LIPID PANEL CPT-4: 07426 01/13/2018 ASSAY OF PSA TOTAL CPT-4: 11396 01/13/2018 ASSAY THYROID STIM HORMONE CPT-4: 90048 01/13/2018 ROUTINE VENIPUNCTURE CPT-4: 68001 10/06/2017 COMPREHEN METABOLIC PANEL CPT-4: 34711 10/06/2017 COMPLETE CBC W/AUTO DIFF WBC CPT-4: 40047 10/06/2017 LIPID PANEL CPT-4: 00056 10/06/2017 A1C HPLC CPT-4: 41593 10/06/2017 VITAMIN B-12 CPT-4: 68789 10/06/2017 DESTRUCT PREMALG LESION (Cryosurgery) CPT-4: 22413 DESTRUCT PREMALG LES 2-14 CPT-4: 68356 04/23/2017 PRESCRIP TRANSMIT VIA ERX SY CPT-4: G8553 03/11/2017 ROUTINE VENIPUNCTURE CPT-4: 22712 03/05/2017 ASSAY OF FREE THYROXINE CPT-4: 30909 03/05/2017 ASSAY THYROID STIM HORMONE CPT-4: 42409 03/05/2017 COMPREHEN METABOLIC PANEL CPT-4: 00518 03/05/2017 COMPLETE CBC W/AUTO DIFF WBC CPT-4: 98755 03/05/2017 LIPID PANEL CPT-4: 98277 03/05/2017 A1C HPLC CPT-4: 05518 03/05/2017 ROUTINE VENIPUNCTURE CPT-4: 50308 06/16/2016 ASSAY OF FREE THYROXINE CPT-4: 83117 06/16/2016 ASSAY THYROID STIM HORMONE CPT-4: 98327 06/16/2016 COMPREHEN METABOLIC PANEL CPT-4: 88410 06/16/2016 COMPLETE CBC W/AUTO DIFF WBC CPT-4: 84798 06/16/2016 LIPID PANEL CPT-4: 49331 06/16/2016 A1C HPLC CPT-4: 78360 06/16/2016 ROUTINE VENIPUNCTURE CPT-4: 34270 03/06/2016 ASSAY OF FREE THYROXINE CPT-4: 89996 03/06/2016 ASSAY THYROID STIM HORMONE CPT-4: 38555 03/06/2016 COMPREHEN METABOLIC PANEL CPT-4: 12628 03/06/2016 COMPLETE CBC W/AUTO DIFF WBC CPT-4: 58821 03/06/2016 LIPID PANEL CPT-4: 10777 03/06/2016 A1C HPLC CPT-4: 34030 03/06/2016 PRESCRIP TRANSMIT VIA ERX SY CPT-4: G8553 09/10/2015 PNEUMOCOCCAL VACC 23 ROSANNE IM CPT-4: 57685 09/06/2015 ADMIN PNEUMOCOCCAL VACCINE CPT-4: G0009 09/06/2015 ROUTINE VENIPUNCTURE CPT-4: 43951 08/31/2015 COMPREHEN METABOLIC PANEL CPT-4: 72258 08/31/2015 COMPLETE CBC W/AUTO DIFF WBC CPT-4: 88833 08/31/2015 LIPID PANEL CPT-4: 35717 08/31/2015 ASSAY OF PSA TOTAL CPT-4: 04951 08/31/2015 A1C HPLC CPT-4: 90437 08/31/2015 ASSAY OF FREE THYROXINE CPT-4: 66280 08/31/2015 ASSAY THYROID STIM HORMONE CPT-4: 25958 08/31/2015 PRESCRIP TRANSMIT VIA ERX SY CPT-4: G8553 06/29/2015 FLU VACC PRSV FREE INC ANTIG 65 AND OLDER CPT-4: 83172 01/17/2015 PNEUMOCOCCAL VACC 13 ROSANNE IM CPT-4: 93274 01/17/2015 ADMIN INFLUENZA VIRUS VAC CPT-4: G0008 01/17/2015 ADMIN PNEUMOCOCCAL VACCINE CPT-4: G0009 01/17/2015 DESTRUCT PREMALG LESION (Cryosurgery) CPT-4: 22314 PRESCRIP TRANSMIT VIA ERX SY CPT-4: G8553 01/17/2015 ROUTINE VENIPUNCTURE CPT-4: 41740 01/12/2015 COMPREHEN METABOLIC PANEL CPT-4: 20360 01/12/2015 COMPLETE CBC W/AUTO DIFF WBC CPT-4: 31756 01/12/2015 LIPID PANEL CPT-4: 68946 01/12/2015 A1C HPLC CPT-4: 70482 01/12/2015 DESTRUCT PREMALG LESION (Cryosurgery) CPT-4: 20240 ROUTINE VENIPUNCTURE CPT-4: 10673 08/15/2014 COMPREHEN METABOLIC PANEL CPT-4: 91029 08/15/2014 COMPLETE CBC W/AUTO DIFF WBC CPT-4: 09959 08/15/2014 LIPID PANEL CPT-4: 59816 08/15/2014 A1C HPLC CPT-4: 23283 08/15/2014 ASSAY OF PSA TOTAL CPT-4: 46034 08/15/2014 ASSAY OF FREE THYROXINE CPT-4: 97684 08/15/2014 ASSAY THYROID STIM HORMONE CPT-4: 67087 08/15/2014 ROUTINE VENIPUNCTURE CPT-4: 51934 12/14/2013 ASSAY OF FREE THYROXINE CPT-4: 57961 12/14/2013 ASSAY THYROID STIM HORMONE CPT-4: 07230 12/14/2013 COMPREHEN METABOLIC PANEL CPT-4: 25711 12/14/2013 COMPLETE CBC W/AUTO DIFF WBC CPT-4: 81424 12/14/2013 LIPID PANEL CPT-4: 64523 12/14/2013 A1C HPLC CPT-4: 83236 12/14/2013 ROUTINE VENIPUNCTURE CPT-4: 99679 06/08/2013 ASSAY OF FREE THYROXINE CPT-4: 69434 06/08/2013 ASSAY THYROID STIM HORMONE CPT-4: 70987 06/08/2013 COMPREHEN METABOLIC PANEL CPT-4: 77109 06/08/2013 COMPLETE CBC W/AUTO DIFF WBC CPT-4: 76070 06/08/2013 LIPID PANEL CPT-4: 15790 06/08/2013 A1C HPLC CPT-4: 57595 06/08/2013 ROUTINE VENIPUNCTURE CPT-4: 87328 11/11/2012 COMPREHEN METABOLIC PANEL CPT-4: 14956 11/11/2012 COMPLETE CBC W/AUTO DIFF WBC CPT-4: 47795 11/11/2012 LIPID PANEL CPT-4: 16945 11/11/2012 A1C GLYCOSYLATED HEMOGLOBIN TEST CPT-4: 07499 013 ASSAY THYROID STIM HORMONE CPT-4: 87695 11/11/2012 ROUTINE VENIPUNCTURE CPT-4: 26776 05/04/2012 ASSAY OF FREE THYROXINE CPT-4: 73541 05/04/2012 ASSAY THYROID STIM HORMONE CPT-4: 38350 05/04/2012 COMPREHEN METABOLIC PANEL CPT-4: 78584 05/04/2012 COMPLETE CBC W/AUTO DIFF WBC CPT-4: 94596 05/04/2012 LIPID PANEL CPT-4: 59340 05/04/2012 DESTRUCT PREMALG LESION (Cryosurgery) CPT-4: 81790 DESTRUCT PREMALG LES 2-14 CPT-4: 19769 03/02/2012 ROUTINE VENIPUNCTURE CPT-4: 97214 10/29/2011 COMPREHEN METABOLIC PANEL CPT-4: 08270 10/29/2011 LIPID PANEL CPT-4: 78284 10/29/2011 A1C GLYCOSYLATED HEMOGLOBIN TEST CPT-4: 67162 012 ROUTINE VENIPUNCTURE CPT-4: 03867 07/29/2011 COMPREHEN METABOLIC PANEL CPT-4: 21173 07/29/2011 LIPID PANEL CPT-4: 64738 07/29/2011 A1C GLYCOSYLATED HEMOGLOBIN TEST CPT-4: 90004 012 ROUTINE VENIPUNCTURE CPT-4: 15294 03/14/2011 COMPREHEN METABOLIC PANEL CPT-4: 53004 03/14/2011 LIPID PANEL CPT-4: 85673 03/14/2011 A1C GLYCOSYLATED HEMOGLOBIN TEST CPT-4: 20903 011 ROUTINE VENIPUNCTURE CPT-4: 92400 11/11/2010 COMPREHEN METABOLIC PANEL CPT-4: 30833 11/11/2010 LIPID PANEL CPT-4: 58857 11/11/2010 URINE CULTURE/ COLONY COUNT CPT-4: 11071 11/11/2010 URINALYSIS NONAUTO W/O SCOPE CPT-4: 57691 10/29/2010 URINE CULTURE/ COLONY COUNT CPT-4: 28484 10/29/2010 LIPID PANEL CPT-4: 59102 07/23/2010 COMPREHEN METABOLIC PANEL CPT-4: 61803 07/23/2010 ROUTINE VENIPUNCTURE CPT-4: 48644 07/23/2010 ROUTINE VENIPUNCTURE CPT-4: 59004 04/26/2010 PSA FREE AND TOTAL CPT-4: 67237|98622 04/26/2010 OCCULT BLOOD FECES CPT-4: 28773 04/24/2010 ROUTINE VENIPUNCTURE CPT-4: 23813 04/19/2010 COMPLETE CBC W/AUTO DIFF WBC CPT-4: 00259 04/19/2010 COMPREHEN METABOLIC PANEL CPT-4: 00392 04/19/2010 LIPID PANEL CPT-4: 06325 04/19/2010 TESTOSTERONE TOTAL - MALE CPT-4: 00462 04/19/2010 ASSAY THYROID STIM HORMONE CPT-4: 26218 04/19/2010 ASSAY OF FREE THYROXINE CPT-4: 76229 04/19/2010 VITAMIN D TOTAL (25 HYDROXY) CPT-4: 48106 04/19/2010 Vital Signs Date Vital 01/31/2019 Blood [...] 1: 112/70 Code: 8480-6 BMI: 28.9 Code: 64223-4 Heart Rate 1: 60 bpm Height: 6'3" Respiratory Rate: 20 bpm SpO2: 95% Tempera ture: 36.6 (C) / 97.9 (F) Weight: 231 lbs 01/19/2018 Blood Pressure 1: 150/82 Code: 8480-6 Heart Rate 1: 63 bpm Respiratory Rate: 18 bpm SpO2: 98% Temperature: 36.0 (C) / 96.8 (F) We ight: 225 lbs 10/15/2017 Blood Pressure 1: 126/82 Code: 8480-6 BMI: 27.9 Code: 48977-4 Heart Rate 1: 64 bpm Height: 6'3" Respiratory Rate: 20 bpm SpO2: 96% Tempera ture: 36.7 (C) / 98.1 (F) Weight: 223 lbs 04/23/2017 Blood Pressure 1: 136/74 Code: 8480-6 BMI: 28.7 Code: 46180-9 Heart Rate 1: 76 bpm Height: 6'3" Respiratory Rate: 20 bpm Temperature: 37 .0 (C) / 98.6 (F) Weight: 230 lbs 03/11/2017 Blood Pressure 1: 136/66 Code: 8480-6 BMI: 28.6 Code: 71201-4 Heart Rate 1: 60 bpm Height: 6'3" Respiratory Rate: 20 bpm Temperature: 36 .7 (C) / 98.1 (F) Weight: 229 lbs 07/09/2016 Blood Pressure 1: 132/80 Code: 8480-6 BMI: 27.7 Code: 62847-3 Heart Rate 1: 64 bpm Height: 6'3" Respiratory Rate: 20 bpm SpO2: 96% Tempera ture: 36.9 (C) / 98.4 (F) Weight: 222 lbs 03/10/2016 Blood Pressure 1: 134/78 Code: 8480-6 BMI: 28.5 Code: 38174-6 Heart Rate 1: 60 bpm Height: 6'3" Respiratory Rate: 20 bpm SpO2: 96% Tempera ture: 36.7 (C) / 98.1 (F) Weight: 228 lbs 09/12/2015 Blood Pressure 1: 136/78 Code: 8480-6 Heart Rate 1: 84 bpm Height: Respiratory Rate: 24 bpm SpO2: 97% Temperature: 36.4 (C) / 97.6 (F) We ight: 09/10/2015 Blood Pressure 1: 124/ Code: 8480-6 BMI: 28.5 Code: 25005-6 Heart Rate 1: 76 bpm Height: 6'3" Respiratory Rate: 24 bpm SpO2: 97% Tempera ture: 36.4 (C) / 97.6 (F) Weight: 228 lbs 09/06/2015 Blood Pressure 1: 124 Code: 8480-6 BMI: 29.0 Code: 86932-7 Heart Rate 1: 66 bpm Height: 6'3" Respiratory Rate: 20 bpm SpO2: 97% Tempera ture: 36.4 (C) / 97.6 (F) Weight: 232 lbs 06/29/2015 Blood Pressure 1: 124 Code: 8480-6 Heart Rate 1: 88 bpm Height: Respiratory Rate: 20 bpm Temperature: 36.7 (C) / 98.1 (F) Weight: 01/17/2015 Blood Pressure 1: 124 Code: 8480-6 BMI: 27.7 Code: 08735-6 Heart Rate 1: 76 bpm Height: 6'3" Respiratory Rate: 20 bpm Temperature: 36 .6 (C) / 97.8 (F) Weight: 222 lbs 09/19/2014 Blood Pressure 1: 12880 Code: 8480-6 BMI: 27.4 Code: 92960-4 Heart Rate 1: 64 bpm Height: 6'3" Respiratory Rate: 20 bpm Temperature: 36 .4 (C) / 97.6 (F) Weight: 219 lbs 10/17/2013 Blood Pressure 1: 11670 Code: 8480-6 Heart Rate 1: 88 bpm Respiratory Rate: 20 bpm Temperature: 36.9 (C) / 98.4 (F) Weight: 220 lbs 09/23/2013 Blood Pressure 1: 12480 Code: 8480-6 BMI: 28.7 Code: 07603-9 Heart Rate 1: 76 bpm Height: 6'3" Respiratory Rate: 20 bpm Temperature: 36 .8 (C) / 98.2 (F) Weight: 230 lbs 07/22/2013 Blood Pressure 1: 128/70 Code: 8480-6 He art Rate 1: 78 bpm 06/20/2013 Blood Pressure 1: 144/86 Code: 8480-6 BMI: 28.7 Code: 43242-2 Heart Rate 1: 92 bpm Height: 6'3" Respiratory Rate: 20 bpm Temperature: 36 .4 (C) / 97.6 (F) Weight: 230 lbs 11/25/2012 Blood Pressure 1: 128/80 Code: 8480-6 BMI: 27.5 Code: 46176-6 Heart Rate 1: 92 bpm Height: 6'3" Respiratory Rate: 20 bpm Temperature: 36 .8 (C) / 98.3 (F) Weight: 220 lbs 08/27/2012 Blood Pressure 1: 142/80 Code: 8480-6 BMI: 27.7 Code: 59935-6 Heart Rate 1: 76 bpm Height: 6'3" Respiratory Rate: 20 bpm Temperature: 36 .8 (C) / 98.3 (F) Weight: 222 lbs 05/11/2012 Blood Pressure 1: 136/80 Code: 8480-6 BMI: 27.7 Code: 21422-0 Heart Rate 1: 76 bpm Height: 6'3" Respiratory Rate: 20 bpm Temperature: 36 .8 (C) / 98.3 (F) Weight: 222 lbs 03/02/2012 Blood Pressure 1: 136/70 Code: 8480-6 BMI: 28.0 Code: 15307-9 Heart Rate 1: 80 bpm Height: 6'3" Respiratory Rate: 20 bpm Temperature: 36 .6 (C) / 97.8 (F) Weight: 224 lbs 12/11/2011 Blood Pressure 1: 142/80 Code: 8480-6 BMI: 27.1 Code: 76749-9 Heart Rate 1: 84 bpm Height: 6'3" Respiratory Rate: 20 bpm Temperature: 36 .9 (C) / 98.4 (F) Weight: 217 lbs 08/14/2011 Blood Pressure 1: 130/82 Code: 8480-6 He art Rate 1: 64 bpm 07/29/2011 Blood Pressure 1: 132/64 Code: 8480-6 BMI: 26.7 Code: 14516-3 Heart Rate 1: 72 bpm Height: 6'3" [...] 1: 142/88 Code: 8480-6 BMI: 26.4 Code: 50909-3 Heart Rate 1: 80 bpm Height: 6'3" [...] labs Encounters Encounter Performer Location Codes Date ([id number]) OFFICE/OUTPATIENT VISIT EST Diagnosis: Essential (primary) hypertension[ICD10: I10] Diagnosis: Type 2 diabetes mellitus without complications[ICD10: E11.9] Diagnosis: Mixed hyperlipidemia[ICD10: E78.2] Najma GODINEZ [employer] CPT-4: 25344 01/31/2019 ([id number]) NURSE/OUTPATIENT VISIT EST Diagnosis: Mixed hyperlipidemia[ICD10: E78.2] Diagnosis: Type 2 diabetes mellitus without complications[ICD10: E11.9] Diagnosis: Essential (primary) hypertension[ICD10: I10] Diagnosis: Chronic kidney disease, unspecified[ICD10: N18.9] Najma MCARTHUR [employer] CPT-4: 83412 01/26/2019 ([id number]) NURSE/OUTPATIENT VISIT EST Diagnosis: Chronic kidney disease, unspecified[ICD10: N18.9] Diagnosis: Essential (primary) hypertension[ICD10: I10] Najma OG [employer] CPT-4: 22929 09/30/2018 ([id number]) OFFICE/OUTPATIENT VISIT EST Diagnosis: Essential (primary) hypertension[ICD10: I10] Diagnosis: Type 2 diabetes mellitus without complications[ICD10: E11.9] Diagnosis: Mixed hyperlipidemia[ICD10: E78.2] Diagnosis: Unspecified kidney failure[ICD10: N19] Najma OG [employer] CPT-4: 23356 08/19/2018 ([id number]) NURSE/OUTPATIENT VISIT EST Diagnosis: Essential (primary) hypertension[ICD10: I10] Diagnosis: Type 1 diabetes mellitus with unspecified complications[ICD10: E10.8] Diagnosis: Mixed hyperlipidemia[ICD10: E78.2] Najma [employer] CPT-4: 11242 08/16/2018 ([id number]) OFFICE/OUTPATIENT VISIT EST Diagnosis: Essential (primary) hypertension[ICD10: I10] Diagnosis: Type 2 diabetes mellitus without complications[ICD10: E11.9] Diagnosis: Mixed hyperlipidemia[ICD10: E78.2] Najma GODINEZ [employer] CPT-4: 43637 05/10/2018 ([id number]) NURSE/OUTPATIENT VISIT EST Diagnosis: Essential (primary) hypertension[ICD10: I10] Diagnosis: Mixed hyperlipidemia[ICD10: E78.2] Diagnosis: Type 1 diabetes mellitus with unspecified complications[ICD10: E10.8] Najma [employer] CPT-4: 51537 05/05/2018 ([id number]) OFFICE/OUTPATIENT VISIT EST Diagnosis: Type 2 diabetes mellitus without complications[ICD10: E11.9] Diagnosis: Mixed hyperlipidemia[ICD10: E78.2] Diagnosis: Nicotine dependence, unspecified, uncomplicated[ICD10: F17.200] Diagnosis: Essential (primary) hypertension[ICD10: I10] Najma OG [employer] CPT-4: 44764 01/19/2018 ([id number]) NURSE/OUTPATIENT VISIT EST Diagnosis: Type 1 diabetes mellitus with unspecified complications[ICD10: E10.8] Diagnosis: Essential (primary) hypertension[ICD10: I10] Diagnosis: Male erectile disorder[ICD10: F52.21] Diagnosis: Encounter for screening for malignant neoplasm of prostate[ICD10: Z12.5] Najma OG [employer] CPT-4: 62927 01/13/2018 ([id number]) OFFICE/OUTPATIENT VISIT EST Diagnosis: Type 2 diabetes mellitus without complications[ICD10: E11.9] Diagnosis: Essential (primary) hypertension[ICD10: I10] Diagnosis: Mixed hyperlipidemia[ICD10: E78.2] Najma OG [employer] CPT-4: 07982 10/15/2017 ([id number]) NURSE/OUTPATIENT VISIT EST Diagnosis: Type 2 diabetes mellitus without complications[ICD10: E11.9] Diagnosis: Mixed hyperlipidemia[ICD10: E78.2] Diagnosis: Essential (primary) hypertension[ICD10: I10] Diagnosis: Glossitis[ICD10: K14.0] Najma THAKKAR [employer] CPT-4: 22756 10/06/2017 ([id number]) OFFICE/OUTPATIENT VISIT EST Diagnosis: Type 2 diabetes mellitus without complications[ICD10: E11.9] Diagnosis: Mixed hyperlipidemia[ICD10: E78.2] Diagnosis: Essential (primary) hypertension[ICD10: I10] Najma OG [employer] CPT-4: 25238 03/11/2017 ([id number]) OFFICE/OUTPATIENT VISIT EST Diagnosis: Type 1 diabetes mellitus with unspecified complications[ICD10: E10.8] Diagnosis: Mixed hyperlipidemia[ICD10: E78.2] Diagnosis: Essential (primary) hypertension[ICD10: I10] Diagnosis: Other fatigue[ICD10: R53.83] Najma OG [employer] CPT-4: 93721 03/05/2017 ([id number]) OFFICE/OUTPATIENT VISIT EST Diagnosis: Type 2 diabetes mellitus without complications[ICD10: E11.9] Diagnosis: Mixed hyperlipidemia[ICD10: E78.2] Diagnosis: Essential (primary) hypertension[ICD10: I10] Diagnosis: Nicotine dependence, unspecified, uncomplicated[ICD10: F17.200] Najma OG [employer] [facility] CPT-4: 78168 07/09/2016 ([id number]) OFFICE/OUTPATIENT VISIT EST Diagnosis: Type 1 diabetes mellitus with unspecified complications[ICD10: E10.8] Diagnosis: Mixed hyperlipidemia[ICD10: E78.2] Diagnosis: Essential (primary) hypertension[ICD10: I10] Najma OG DO [facility] CPT-4: 55343 06/16/2016 ([id number]) OFFICE/OUTPATIENT VISIT EST Diagnosis: Type 2 diabetes mellitus without complications[ICD10: E11.9] Diagnosis: Mixed hyperlipidemia[ICD10: E78.2] Diagnosis: Essential (primary) hypertension[ICD10: I10] Najma OG DO [facility] CPT-4: 15472 03/10/2016 ([id number]) OFFICE/OUTPATIENT VISIT EST Diagnosis: Type 1 diabetes mellitus with unspecified complications[ICD10: E10.8] Diagnosis: Mixed hyperlipidemia[ICD10: E78.2] Diagnosis: Essential (primary) hypertension[ICD10: I10] Najma OG DO [facility] CPT-4: 64527 03/06/2016 ([id number]) OFFICE/OUTPATIENT VISIT EST Diagnosis: Bitten or stung by nonvenomous insect and other nonvenomous arthropods, subsequent encounter[ICD10: W57.XXXD] Diagnosis: Insect bite (nonvenomous), right thigh, subsequent encounter[ICD10: S70.361D] Barbara OG [employer] [facility] CPT-4: 51583 11/2015 ([id number]) OFFICE/OUTPATIENT VISIT EST Diagnosis: Bitten or stung by nonvenomous insect and other nonvenomous arthropods, initial encounter[ICD10: W57.XXXA] Diagnosis: Insect bite (nonvenomous), right thigh, initial encounter[ICD10: S70.361A] Barbara OG [employer] [facility] CPT-4: 48250 09/2015 ([id number]) OFFICE/OUTPATIENT VISIT EST Diagnosis: Mixed hyperlipidemia[ICD10: E78.2] Diagnosis: Essential (primary) hypertension[ICD10: I10] Diagnosis: Type 2 diabetes mellitus without complications[ICD10: E11.9] Diagnosis: Encounter for immunization[ICD10: Z23] Diagnosis: Encounter for screening for malignant neoplasm of colon[ICD10: Z12.11] Diagnosis: Abnormal weight gain[ICD10: R63.5] Barbara Brower ANUM GODINEZ [employer] [facility] CPT-4: 14085 09/06/2015 ([id number]) OFFICE/OUTPATIENT VISIT EST Diagnosis: Type 2 diabetes mellitus without complications[ICD10: E11.9] Diagnosis: Mixed hyperlipidemia[ICD10: E78.2] Diagnosis: Essential (primary) hypertension[ICD10: I10] Diagnosis: Encounter for screening for malignant neoplasm of prostate[ICD10: Z12.5] Diagnosis: Other fatigue[ICD10: R53.83] Najma MCARTHUR [employer] [facility] CPT-4: 15893 08/31/2015 OFFICE/OUTPATIENT VISIT EST Diagnosis: Diarrhea, unspecified[ICD10: R19.7] Henrietta MCCOY [employer] [facility] CPT-4: 82118 06/29/2015 OFFICE/OUTPATIENT VISIT EST Diagnosis: PNEUMOCOCCAL VACCINE[ICD10: Z23] Diagnosis: FLU VACCINE[ICD10: Z23] Diagnosis: Essential (primary) hypertension[ICD10: I10] Diagnosis: Mixed hyperlipidemia[ICD10: E78.2] Diagnosis: Type 1 diabetes mellitus with unspecified complications[ICD10: E10.8] Diagnosis: Actinic keratosis[ICD10: L57.0] Najma MCARTHUR [employer] [facility] CPT-4: 16502 01/17/2015 ([id number]) OFFICE/OUTPATIENT VISIT EST Diagnosis: Type 2 diabetes mellitus without complications[ICD10: E11.9] Diagnosis: Impaired fasting glucose[ICD10: R73.01] Diagnosis: Mixed hyperlipidemia[ICD10: E78.2] Diagnosis: Essential (primary) hypertension[ICD10: I10] Najma MCARTHUR [employer] [facility] CPT-4: 87633 01/12/2015 ([id number]) OFFICE/OUTPATIENT VISIT EST Diagnosis: - I - HYPERLIPIDEMIA NEC/NOS[ICD9: 272.4] Diagnosis: HYPERTENSION[ICD9: 401.9] Diagnosis: DM W/O COMPLICATION TYPE II[ICD9: 250.00] Diagnosis: ACTINIC KERATOSIS[ICD9: 702.0] Najma OG DO [facility] CPT-4: 20832 09/19/2014 ([id number]) OFFICE/OUTPATIENT VISIT EST Diagnosis: HYPERLIPIDEMIA NEC/NOS[ICD9: 272.4] Diagnosis: HYPERTENSION[ICD9: 401.9] Diagnosis: IMPAIRED FASTING GLUCOSE[ICD9: 790.21] Diagnosis: MALAISE AND FATIGUE[ICD9: 780.79] Najma OG [employer] [facility] CPT-4: 72190 08/15/2014 ([id number]) OFFICE/OUTPATIENT VISIT EST Diagnosis: HYPERLIPIDEMIA NEC/NOS[ICD9: 272.4] Diagnosis: HYPERTENSION[ICD9: 401.9] Diagnosis: IMPAIRED FASTING GLUCOSE[ICD9: 790.21] Najma HAQUE [employer]IA LONG [employer] [facility] CPT-4: 56848 12/14/2013 ([id number]) OFFICE/OUTPATIENT VISIT EST Diagnosis: Post herpetic neuralgia[ICD9: 053.19] Najma OG [employer] [facility] CPT-4: 06981 10/17/2013 OFFICE/OUTPATIENT VISIT EST Diagnosis: Shingles[ICD9: 053.9] Diagnosis: Post herpetic neuralgia[ICD9: 053.19] Jeanie Briceño CLAUDE OG [employer] [facility] CPT-4: 11393 09/23/2013 ([id number]) OFFICE/OUTPATIENT VISIT EST Diagnosis: HYPERTENSION[ICD9: 401.9] Diagnosis: HYPERLIPIDEMIA NEC/NOS[ICD9: 272.4] Diagnosis: IMPAIRED FASTING GLUCOSE[ICD9: 790.21] Najma OG [employer] [facility] CPT-4: 82988 06/20/2013 ([id number]) OFFICE/OUTPATIENT VISIT EST Diagnosis: HYPERLIPIDEMIA NEC/NOS[ICD9: 272.4] Diagnosis: MALAISE AND FATIGUE[ICD9: 780.79] Diagnosis: ROUTINE MEDICAL EXAM[ICD9: V70.0] Diagnosis: HYPERTENSION[ICD9: 401.9] Diagnosis: IMPAIRED FASTING GLUCOSE[ICD9: 790.21] Najma LundCECILIA OG [employer] [facility] CPT-4: 75224 06/08/2013 ([id number]) OFFICE/OUTPATIENT VISIT EST Diagnosis: HYPERLIPIDEMIA NEC/NOS[ICD9: 272.4] Diagnosis: HYPERTENSION[ICD9: 401.9] Diagnosis: IMPAIRED FASTING GLUCOSE[ICD9: 790.21] Diagnosis: DIARRHEA[ICD9: 787.91] Najma MCARTHUR AmeenaMatilde BRITTNI Stallings [employer] [facility] CPT-4: 21400 11/25/2012 ([id number]) OFFICE/OUTPATIENT VISIT EST Diagnosis: HYPERLIPIDEMIA NEC/NOS[ICD9: 272.4] Diagnosis: HYPERTENSION[ICD9: 401.9] Diagnosis: IMPAIRED FASTING GLUCOSE[ICD9: 790.21] Diagnosis: MALAISE AND FATIGUE[ICD9: 780.79] Najma Jenkins AmeenaMaitlde KAHLIL [employer] [facility] CPT-4: 16008 11/11/2012 OFFICE/OUTPATIENT VISIT EST Diagnosis: Fungal dermatitis[ICD9: 111.9] Diagnosis: Dry skin dermatitis[ICD9: 692.89] Henrietta Jenkins AmeenaMatilde MERCEDES [employer] [facility] CPT-4: 01010 08/27/2012 ([id number]) OFFICE/OUTPATIENT VISIT EST Diagnosis: HYPERTENSION[ICD9: 401.9] Diagnosis: HYPERLIPIDEMIA NEC/NOS[ICD9: 272.4] Najma MCCOY AmeenaMatilde KAHLIL [employer] [facility] CPT-4: 68679 05/11/2012 ([id number]) OFFICE/OUTPATIENT VISIT EST Diagnosis: HYPERLIPIDEMIA NEC/NOS[ICD9: 272.4] Diagnosis: HYPERTENSION[ICD9: 401.9] Diagnosis: ROUTINE MEDICAL EXAM[ICD9: V70.0] Najma Jenkins AmeenaMatilde KAHLIL [employer] [facility] CPT-4: 69760 05/04/2012 ([id number]) OFFICE/OUTPATIENT VISIT EST Diagnosis: HYPERTENSION[ICD9: 401.9] Diagnosis: HYPERLIPIDEMIA NEC/NOS[ICD9: 272.4] Diagnosis: IMPAIRED FASTING GLUCOSE[ICD9: 790.21] Najma CHAPMAN SMatilde OG DO [facility] CPT-4: 54224 12/11/2011 ([id number]) OFFICE/OUTPATIENT VISIT EST Diagnosis: HYPERLIPIDEMIA NEC/NOS[ICD9: 272.4] Diagnosis: HYPERTENSION[ICD9: 401.9] Diagnosis: IMPAIRED FASTING GLUCOSE[ICD9: 790.21] Najma LONGER [facility] CPT-4: 93657 10/29/2011 ([id number]) OFFICE/OUTPATIENT VISIT EST Diagnosis: HYPERTENSION[ICD9: 401.9] Najma ZARATER [facility] CPT-4: 79461 08/14/2011 ([id number]) OFFICE/OUTPATIENT VISIT EST Diagnosis: HYPERTENSION[ICD9: 401.9] Diagnosis: IMPAIRED FASTING GLUCOSE[ICD9: 790.21] Najma LONGER [facility] CPT-4: 17116 07/29/2011 ([id number]) OFFICE/OUTPATIENT VISIT EST Diagnosis: HYPERTENSION[ICD9: 401.9] Najma ZARATER [facility] CPT-4: 95321 07/23/2011 ([id number]) OFFICE/OUTPATIENT VISIT EST Diagnosis: HYPERTENSION[ICD9: 401.9] Najma ZARATER [facility] CPT-4: 99003 06/24/2011 OFFICE/OUTPATIENT VISIT EST Diagnosis: HYPERTENSION[ICD9: 401.9] Najma ZARATER [facility] CPT-4: 72212 05/20/2011 OFFICE/OUTPATIENT VISIT EST Diagnosis: HYPERTENSION[ICD9: 401.9] Najma SAMSON NDER [facility] CPT-4: 94891 04/15/2011 OFFICE/OUTPATIENT VISIT EST Diagnosis: HYPERLIPIDEMIA NEC/NOS[ICD9: 272.4] Diagnosis: IMPAIRED FASTING GLUCOSE[ICD9: 790.21] Najma LONGER [facility] CPT-4: 07731 03/18/2011 ([id number]) OFFICE/OUTPATIENT VISIT EST Najma LONGER [facility] CPT-4: 28544 07/30/2010 ([id number]) PREV VISIT, EST, AGE 40-64 Najma ARCE CECILIAGRETCHEN OG DO [facility] CPT-4: 30387 04/24/2010 Plan of Care Planned Activity Notes [...] : E11.9 01/31/2019 Appointment: Najma Og WPtel: [address] [place] [address] [place] FOLLOW UP 01/31/2019 Appointment: Najma Og WPtel: [address] [place] [address] US LAB 01/26/2019 Appointment: Najma Og WPtel: [address] [place] [address] US LAB 09/30/2018 Visit Diagnosis Plan: Unspecified [...] : E11.9 08/19/2018 Appointment: Najma Og WPtel: [address] [place] [address] US FOLLOW UP 08/19/2018 Appointment: Najma Og WPtel: [address] [place] [address] [place] LAB 08/16/2018 Visit Diagnosis Plan: Type [...] : I10 05/10/2018 Appointment: Najma Og WPtel: [address] [place], [place] [phone] FOLLOW UP 05/10/2018 Patient Education: Low Back Pain Exercises: Illustration Completed 05/10/2018 Patient Education: Low Back Pain Exercises Completed 05/10/2018 Appointment: Najma Og WPtel: [address] [place], [place] [phone] LAB 05/05/2018 Visit Diagnosis Plan: Type 2 [...] : E78.2 01/19/2018 Appointment: Najma Og WPtel: [address] [place], [place] [id number] [place] FOLLOW UP 01/19/2018 Patient Education: Patient Medication Summary Completed 01/19/2018 Appointment: Najma Og WPtel: [address] [place], [place] [id number] [place] LAB 01/13/2018 Patient Education: Patient Medication [...] : E78.2 10/15/2017 Appointment: Najma Og WPtel: [address] [place] [address] FOLLOW UP 10/15/2017 Patient Education: Patient Medication Summary Completed 10/15/2017 Appointment: Najma Og WPtel: [address] [place] [address] LAB 10/06/2017 Patient Education: Patient Medication Summary Completed 10/06/2017 Visit Diagnosis Plan: Actinic keratosis Discussion: Cr yotherapy as above ICD-9 : 702.0 ICD-10 : L57.0 04/23/2017 Appointment: Najma Og WPtel: [address] [place], [place] [phone] 04/23/2017 Patient Education: Patient Medication [...] : E11.9 03/11/2017 Appointment: Najma Og WPtel: [address] [place], [place] [phone] [place] FOLLOW UP 03/11/2017 Patient Education: Patient Medication Summary Completed 03/11/2017 Appointment: Najma Og WPtel: [address] [place], [place] [phone] [place] LAB 03/05/2017 Patient Education: Patient Medication [...] : E78.2 07/09/2016 Appointment: Najma Og WPtel: [address] [place] [address] [place] 07/08 lm ~sl 07/09 confirmed~sl FOLLOW UP 08/2016 Patient Education: Patient Medication Summary Completed 07/09/2016 Appointment: Najma Og WPtel: [address] [place], [place] [phone] [place] LAB 06/16/2016 Patient Education: Patient Medication Summary Completed 06/16/2016 Visit Plan: Lab discussed Accuchecks maribel ly Lifestyle change for 3mos then check CMP, HbA1C in 3mos Has had flu and pneumonia shot 03/10/2016 Appointment: Najma Og WPtel: [address] [place], [place] [phone] [place] 03/06 confirmed `sl FOLLOW UP 03/10/2016 Patient Education: Patient Medication Summary Completed 03/10/2016 Appointment: Najma Og WPtel: [address] [place], [place] [phone] [place] LAB 03/06/2016 Patient Education: Patient Medication Summary Completed 03/06/2016 Referral: Donavon Keller WPtel: [address] [place] [address] Drive [id number] Referral Completed 10/22/2015 Visit Plan: Tick bite area looks much be tter Continue current rxs and close monitoring Follow up if any new symptoms or worsening appearance 09/12/2015 Appointment: Barbara Brower [address] [place] [address] 09/10 confirmed~sl FOLLOW UP 09/12/2015 Patient Education: Patient Medication Summary Completed 09/12/2015 Visit Plan: Cover as above 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 topical steroids to calm down the inflammation(suspect most of redness is due to histamine response vs infection) Monitor closely Follow up in 2 days to recheck 09/10/2015 Appointment: Barbara Brower [address] [place] [address] ACUTE ILLNESS 09/10/2015 Patient Education: Patient Medication [...] consider shingles vaccine 09/06/2015 Appointment: Barbara Brower [address] [place] [address] FOLLOW UP 09/06/2015 Patient Education: Patient Medication Summary Completed 09/06/2015 Care Plan: Referral Order SNOMED-CT : [id number] Pending 09/06/2015 Appointment: Najma Og WPtel: [facility] [place] [id number] 08/31/2015 Patient Education: Patient Medication Summary [...] to UC/ER. 06/29/2015 Appointment: Henrietta Lubin WPtel: [address] [place], [place] [phone] 06/29/2015 Patient Education: Patient Medication Summary Completed 06/29/2015 Visit Plan: Lab discussed Will keep meds the same Discussed diet/exercise at length Cryotherapy as above to AKs of arms Flu and Prevnar 13 given Trial of revatio per patient request for ED--warned of no nitrates Recheck 4mos 01/17/2015 Appointment: Najma Og WPtel: [address] [place], [place] [address] 01/16 confirmed~sl FOLLOW UP 01/17/2015 Patient Education: Patient Medication Summary Completed 01/17/2015 Appointment: Najma Ogtel: [address] [place], [place] [phone] [place] LAB 01/12/2015 Patient Education: Patient Medication Summary Completed 01/12/2015 Visit Plan: Lab discussed Start accuchec ks daily Cryotherapy as above 09/19/2014 Appointment: Najma Og WPtel: [address] [place] [address] [place] 09/18 confirmed -mf FOLLOW UP 09/19/2014 Patient Education: Patient Medication Summary Completed 09/19/2014 Appointment: Najma Og WPtel: [address] [place], [place] [phone] [place] LAB 08/15/2014 Patient Education: Patient Medication Summary Completed 08/15/2014 Appointment: Najma Og WPtel: [address] [place], [place] [phone] 12/14/2013 Patient Education: Patient Medication Summary Completed 12/14/2013 Visit Plan: Patient using tylenol prn pa in Discussed possible shingles shot for booster in 9-12mos 10/17/2013 Appointment: Najma Ogtel: [address] [place], [place] [phone] [place] FOLLOW UP 10/17/2013 Patient Education: Patient Medication Summary Completed 10/17/2013 Appointment: Jeanie Briceño WPtel: [address] [place], [place] [phone] 09/23/2013 Patient Education: Patient Medication Summary Completed 09/23/2013 Appointment: Najma Og WPtel: [address] [place], [place] [phone] BP CHECK 07/22/2013 Patient Education: Patient Medication Summary Completed 07/22/2013 Visit Plan: Lab discussed Discussed swit arun amlodopine to beta slim to see if helps with tremor BP check in 1mo 06/20/2013 Appointment: Najma Og WPtel: [address] [place], [place] [phone] 06/17 no answer FOLLOW UP 06/20/2013 Patient Education: Patient Medication Summary Completed 06/20/2013 Appointment: Najma Og WPtel: [address] [place], [place] [phone] LAB 06/08/2013 Patient Education: Patient Medication Summary Completed 06/08/2013 Visit Plan: BRAT diet and yogurt and gat orade Lab discussed Continue current meds Spot checks on BS 11/25/2012 Appointment: Najma Og WPtel: [address] [place], [place] [phone] 11/24 vm FOLLOW UP 11/25/2012 Patient Education: Patient Medication Summary Completed 11/25/2012 Appointment: Najma Og WPtel: [address] [place], [place] [phone] LAB 11/11/2012 Patient Education: Patient Medication Summary Completed 11/11/2012 Appointment: Henrietta Lubin WPtel: [address] [place], [place] [phone] WORK IN 08/27/2012 Patient Education: Patient Medication Summary Completed 08/27/2012 Visit Plan: Pt going to get new home BP moniter Continue crestor and restart fish oil and will check fasting lab in 6mos Lab results discussed 05/11/2012 Appointment: Najma Og WPtel: [address] [place], [place] [phone] 05/10 FOLLOW UP 05/11/2012 Patient Education: Patient Medication Summary Completed 05/11/2012 Appointment: Najma Og WPtel: [address] [place], [place] [phone] [place] LAB 05/04/2012 Patient Education: Patient Medication Summary Completed 05/04/2012 Visit Plan: 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 and forehead 03/02/2012 Appointment: Najma Og WPtel: [address] [place], [place] [phone] 03/01 OFFICE SURGERY 03/02/2012 Patient Education: Patient Medication Summary Completed 03/02/2012 Visit Plan: Labs discussed--recheck lab end of Feb/first mar Continue current meds and continue to moniter BS daily and BP 1-2 times a week Plan on cryotherapy this fall so can wear longsleeves after procedure See urology 12/11/2011 Appointment: Najma Og WPtel: [address] [place], [place] [phone] FOLLOW UP 12/11/2011 Patient Education: Patient Medication Summary Completed 12/11/2011 Appointment: Najma Og WPtel: [address] [place], [place] [phone] LAB 10/29/2011 Patient Education: Patient Medication Summary Completed 10/29/2011 Appointment: Najma Og WPtel: [address] [place], [place] [phone] BP CHECK 08/14/2011 Patient Education: Patient Medication Summary Completed 08/14/2011 Appointment: Najma Og WPtel: [address] [place], [place] [phone] ACUTE ILLNESS 07/29/2011 Patient Education: Patient Medication Summary Completed 07/29/2011 Appointment: Najma Og WPtel: [address] [place], [place] [phone] US BP CHECK 07/23/2011 Patient Education: Patient Medication Summary Completed 07/23/2011 Appointment: Najma Og WPtel: [address] [place], [place] [phone] US BP CHECK 06/24/2011 Patient Education: Patient Medication Summary Completed 06/24/2011 Appointment: Najma Og WPtel: [address] [place], [place] [phone] US BP CHECK 05/20/2011 Patient Education: Patient Medication Summary Completed 05/20/2011 Appointment: Najma Og WPtel: [address] [place] [address] BP CHECK 04/29/2011 Patient Education: Patient Medication Summary Completed 04/29/2011 Appointment: Najma Og WPtel: [address] [place] [address] BP CHECK 04/15/2011 Patient Education: Patient Medication Summary Completed 04/15/2011 Visit Plan: Continue current meds Add fi sh oil 1gm daily Glucometer given to use for accuchecks prn 03/18/2011 Appointment: Najma Og WPtel: [address] [place], [place] [phone] US FOLLOW UP 03/18/2011 Patient Education: Patient Medication Summary Completed 03/18/2011 Appointment: Najma Og WPtel: [address] [place], [place] [phone] US LAB 03/14/2011 Patient Education: Patient Medication Summary Completed 03/14/2011 Appointment: Najma Og WPtel: [address] [place], [place] [phone] US LAB 11/11/2010 Appointment: Najma Og WPtel: [address] [place], [place] [phone] [place] UA 11/11/2010 Patient Education: Patient Medication Summary Completed 11/11/2010 Appointment: Najma Og WPtel: [address] [place] [address] US LAB 10/29/2010 Patient Education: Patient Medication Summary Completed 10/29/2010 Appointment: Najma Og WPtel: [address] [place], [place] [phone] FOLLOW UP 07/30/2010 Patient Education: Patient Medication Summary Completed 07/30/2010 Appointment: Najma Og WPtel: [address] [place], [place] [phone] LAB 07/23/2010 Patient Education: Patient Medication Summary Completed 07/23/2010 Appointment: Najma Og WPtel: [address] [place] [address] LAB 04/26/2010 Patient Education: Patient Medication Summary Completed 04/26/2010 Visit Plan: Add PSA to lab Restart Crest or at 10mg daily Trial of Wellbutrin to aid in smoking cessation Check Lipids and LFTs in 3mos 04/24/2010 Appointment: Najma Og WPtel: [address] [place] [address] FOLLOW UP 04/24/2010 Patient Education: Patient Medication Summary Completed 04/24/2010 Appointment: Najma Og WPtel: [address] [place], [place] [phone] LAB 04/19/2010 Patient Education: Patient Medication Summary Completed 04/19/2010 Referral: Donavon Keller WPtel: [address] [id number] US Referral Completed Instructions Comment . Lab [...]
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
[2019-10-14 23:01] LABS: BACTERIA,URINE NEGATIVE /HPF; SQUAMOUS EPITHELIAL CELL,UR 0-2 /HPF
[2019-10-14 23:05] LABS: POTASSIUM 3.8 MMOL/L (3.6-5.0)
[2019-10-14 23:06] LABS: CALCIUM 9.4 MG/DL (8.5-10.1)
[2019-10-14 23:10] LABS: CREATININE SERUM 1.36 MG/DL (0.60-1.30)
--- NOTE | 2019-10-14 23:42 | ED General ---
General Chief Complaint: - Urinary Stated Complaint: DECREASE IN URINATION Nursing Triage Note: REPORTS DIFFICULTY STARTING URINARY STREAM, DECREASED URINARY OUTPUT TODAY. DENIES PAIN. Nursing Sepsis Screen: No Definite Risk Source of Information: Patient Exam Limitations: No Limitations History of Present Illness Date Seen by Provider: Oct 14, 2019 Time Seen by Provider: 21:53 Initial Comments This 69-year-old gentleman presents to the emergency room with concerns about decreased urination. He notes an abrupt change control analyst the last 24-48 hours. He states his urine does seem a little darker. He has not necessarily voiding more often and reports only getting up once at night if at all to urinate. He feels like he is able to completely empty his bladder. He was briefly without air-conditioning today but he denies spending a lot of time out in the heat. He has tried to increase his fluid intake but admits to drinking a lot of caffeinated beverages. He has borderline diabetes but does not monitor his blood sugars frequently. He denies any recent swelling or shortness of breath. Allergies and Home Medications Allergies Coded Allergies: No Known Drug Allergies (Unverified , 11/16/13) Home Medications Metformin Hcl 500 Mg Tablet, 1 EACH PO DAILY, (Reported) Propranolol Hcl 80 Mg Cap.sa.24h, 80 PO CLARA, (Reported) Patient Home Medication List Home Medication List Reviewed: Yes Review of Systems Review of Systems Constitutional: no symptoms reported EENTM: no symptoms reported Respiratory: no symptoms reported Cardiovascular: no symptoms reported Gastrointestinal: no symptoms reported Genitourinary: see HPI Musculoskeletal: no symptoms reported Skin: no symptoms reported Psychiatric/Neurological: No Symptoms Reported Hematologic/Lymphatic: No Symptoms Reported Immunological/Allergic: no symptoms reported Past Szpgjxv-Clfncv-Doaklc Hx Past Med/Social Hx: Reviewed Nursing Past Med/Soc Hx Patient Social History Alcohol Use: Rarely Uses Alcohol Beverage of Choice: Beer Recreational Drug Use: No Smoking Status: Current Everyday Smoker Type Used: Cigarettes 2nd Hand Smoke Exposure: Yes Recent Foreign Travel: No Contact w/Someone Who Travel: No Recent Infectious Disease Expo: No Recent Hopitalizations: No Physical Abuse: No Sexual Abuse: No Mistreated: No Fear: No Immunizations Up To Date Tetanus Booster (TDap): Less than 5yrs Seasonal Allergies Seasonal Allergies: No Past Medical History Surgeries: Yes Appendectomy, Tonsillectomy Respiratory: No Cardiac: Yes Hypertension Neurological: No Genitourinary: No Gastrointestinal: No Musculoskeletal: No Endocrine: Yes Diabetes, Non-Insulin dep HEENT: No Cancer: No Psychosocial: No Integumentary: No Blood Disorders: No Physical Exam Vital Signs Vital Signs - First Documented 10/14/19 22:36 Temp 36.0 Pulse 87 Resp 16 B/P (MAP) 173/89 (117) Pulse Ox 95 O2 Delivery Room Air Capillary Refill : Less Than 3 Seconds Height, Weight, BMI Height: 6'3" Weight: 223lbs. oz. 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016-1.022 Urine Protein NEGATIVE NEGATIVE Urine Glucose (UA) NEGATIVE NEGATIVE Urine Ketones NEGATIVE NEGATIVE Urine Nitrite NEGATIVE NEGATIVE Urine Bilirubin NEGATIVE NEGATIVE Urine Urobilinogen 1.0 < = 1.0 MG/DL Urine Leukocyte Esterase NEGATIVE NEGATIVE Urine RBC (Auto) NEGATIVE NEGATIVE Urine RBC NONE /HPF Urine WBC NONE /HPF Urine Squamous Epithelial Cells 0-2 /HPF Urine Crystals NONE /LPF Urine Bacteria NEGATIVE /HPF Urine Casts NONE /LPF Urine Mucus SMALL H /LPF Urine Culture Indicated NO White Blood Count 9.1 4.3-11.0 10^3/uL Red Blood Count 4.52 4.35-5.85 10^6/uL Hemoglobin 14.4 13.3-17.7 G/DL Hematocrit 42 40-54 % Mean Corpuscular Volume 94 80-99 FL Mean Corpuscular Hemoglobin 32 25-34 PG Mean Corpuscular Hemoglobin Concent 34 32-36 G/DL Red Cell Distribution Width 13.4 10.0-14.5 % Platelet Count 225 130-400 10^3/uL Mean Platelet Volume 10.7 H 7.4-10.4 FL Neutrophils (%) (Auto) 68 42-75 % Lymphocytes (%) (Auto) 21 12-44 % Monocytes (%) (Auto) 9 0-12 % Eosinophils (%) (Auto) 2 0-10 % Basophils (%) (Auto) 0 0-10 % Neutrophils # (Auto) 6.2 1.8-7.8 X 10^3 Lymphocytes # (Auto) 2.0 1.0-4.0 X 10^3 Monocytes # (Auto) 0.8 0.0-1.0 X 10^3 Eosinophils # (Auto) 0.2 0.0-0.3 10^3/uL Basophils # (Auto) 0.0 0.0-0.1 10^3/uL Sodium Level 137 135-145 MMOL/L Potassium Level 3.8 3.6-5.0 MMOL/L Chloride Level 103 98-107 MMOL/L Carbon Dioxide Level 22 21-32 MMOL/L Anion Gap 12 5-14 MMOL/L Blood Urea Nitrogen 20 H 7-18 MG/DL Creatinine 1.36 H 0.60-1.30 MG/DL Estimat Glomerular Filtration Rate 52 BUN/Creatinine Ratio 15 Glucose Level 200 H 70-105 MG/DL Calcium Level 9.4 8.5-10.1 MG/DL Vital Signs/I&O Capillary Refill : Less Than 3 Seconds Blood Pressure Mean: 117 Progress Note : Progress Note Bladder scan revealed less than 30 ML of retained urine. Urine was concentrated and BUN and creatinine were mildly elevated. Patient was encouraged to decrease intake of caffeine and increase other clear liquids. I advised him to follow-up with his primary care provider regarding his renal function. I also advised that he watch his carbohydrate and sugar intake as periodic hyperglycemia may be causing some hypovolemia from diuresis. Departure Impression Primary Impression: Oligouria Additional Impressions: Renal insufficiency Hyperglycemia Disposition: HOME, SELF-CARE Condition: Stable Departure-Patient Inst. Decision time for Depature: 23:40 Referrals: BLUE GUILLORY DO (PCP/Family) Primary Care Physician Patient Instructions: Hyperglycemia, Adult Add. Discharge Instructions: Increase your non-caffeinated fluid intake. You should be urinating every couple of hours and your urine should be light yellow to clearish in color. Follow-up with Dr. Guillory next week. Talk about repeating blood work with her at that time. Eat a low sugar, low carbohydrate diet to improve your blood sugars. Drink caffeinated beverages only in moderation. Return to care if you have worsening symptoms despite following these measures. All discharge instructions reviewed with patient and/or family. Voiced understanding. Copy Copies To 1: BLUE GUILLORY JOSHUA T MD Oct 14, 2019 23:42
[2019-10-14 23:44] VITALS: BP 149/92
== END 2019-10-14 23:46 | disposition home or self-care (01) ==
LOC: EDUNIT# 21:51 → ER 21:53
DX: R34 Anuria and oliguria (principal); N28.9 Disorder of kidney and ureter, unspecified; E11.65 Type 2 diabetes mellitus with hyperglycemia; I10 Essential (primary) hypertension; F17.210 Nicotine dependence, cigarettes, uncomplicated; Z79.84 Long term (current) use of oral hypoglycemic drugs
CPT/HCPCS: 36415; 80048; 81000; 85025

== ENCOUNTER → 2020-07-04 | Outpatient (CLI) | payer MEDICARE ==
[~2020-07-04] MED LIST changes: +AMLO-250; +ESCI-2; +FENO134C
--- NOTE | 2020-07-04 17:23 | Diagnostic Imaging Report ---
EXAMINATION: CT Lung Screening. INDICATION:50 pack-year history of smoking. TECHNIQUE: Noncontrast, low-dose CT imaging performed according to the lung cancer screening protocol. Auto Exposure Controls were utilize during the CT exam to meet ALARA standards for radiation dose reduction. COMPARISON:None FINDINGS:Evaluation of the lung potts demonstrates small subpleural micronodule within the lateral margins of the right upper lobe (image 54, series 2). Small micronodule is also seen within the superior margin of the lateral segment of the right middle lobe (image 120, series 2). These measure approximately 3-4 mm in diameter. There is no focal consolidation, large effusion, nor pneumothorax. Cardiomediastinal structures show normal heart size. There is no large pericardial effusion. Mild scattered calcified aortic and coronary atherosclerosis is present. Several subcentimeter mediastinal lymph nodes are noted. Otherwise, no pathologically enlarged or morphologically abnormal adenopathy is seen within the mediastinum, cindy, nor axilla on this noncontrast study. Osseous structures show age-related degenerative changes. No lytic or blastic bony lesions are seen. Included portions of the upper abdomen are unremarkable as well. IMPRESSION: 1. Small micronodules of the right upper and right middle lobes. Given their small size, continued follow-up with annual low-dose CT chest is recommended. 2. No acute cardiopulmonary process. LUNG-RADS CATEGORY:2 MODIFIER:None OTHER SIGNIFICANT FINDINGS:None Dictated by: Dictated on workstation # [id number]
== END ==
LOC: RAD 15:15
PROVIDERS: ATTEND Family Medicine
DX: Z12.2 Encounter for screening for malignant neoplasm of respiratory organs (principal); R91.8 Other nonspecific abnormal finding of lung field; F17.210 Nicotine dependence, cigarettes, uncomplicated
CPT/HCPCS: 71271

== ENCOUNTER 2021-01-07 05:56 | Outpatient (CLI) | payer MEDICARE ==
[~2021-01-07] VITALS: Ht 190.5 cm; Wt 101.2 kg
[2021-01-07] MEDS ORDERED: METF-397 PO (12:34)
[2021-01-07] MEDS ORDERED: ROSU5TAB13 PO (12:34)
[2021-01-07] MEDS ORDERED: PROP80TA3 PO (12:34)
== END 2021-01-07 14:50 | disposition home or self-care (01) ==
LOC: PREOP 05:56
PROVIDERS: ATTEND Internal Medicine
DX: Z01.818 Encounter for other preprocedural examination (principal)

== ENCOUNTER → 2021-01-11 | Day surgery (SDC) | payer MEDICARE ==
--- NOTE | 2021-01-04 06:18 | HISTORY AND PHYSICAL ---
DATE OF SERVICE: COLONOSCOPY H AND P HISTORY: The patient is a 70-year-old white male referred by Dr. Og for screening colonoscopy. He had last colonoscopy over 5 years ago, at which time he had an adenomatous colonic polyp removed. Per his report, it was significant enough that while he states it was benign. He had a 6-month followup to ensure that there was nothing left. It was recommended that he repeat colonoscopy in 5 years and he reports it has been longer than 5 years. He denies abdominal pain, has some mild chronic constipation controlled with fiber supplementation and denies bright red blood per rectum or melena. He has a history of hyperlipidemia and hypertension with no reported history of coronary artery disease. PAST SURGICAL HISTORY: Only pertinent for tonsillectomy and adenoidectomy. FAMILY HISTORY: He is not aware of any family history for GI tract malignancy including colon cancer. SOCIAL HISTORY: He denies any significant past drinking history and no past smoking history. MEDICATIONS ON ADMISSION: Include fenofibrate 134 mg daily, propranolol 80 mg daily, metformin 500 mg daily, rosuvastatin 3 times weekly I believe 10 mg, amlodipine 5 mg daily and tadalafil 20 mg prior to sexual relations. PHYSICAL EXAMINATION: GENERAL: Reveals a rather fit appearing 70-year-old, did not appear to be in acute distress. He was alert and oriented, articulate. VITAL SIGNS: Weight 222 pounds, blood pressure 110/80. HEENT: Unremarkable. Sclerae nonicteric. CHEST: Clear to auscultation. CARDIOVASCULAR: Revealed a regular rate and rhythm without significant murmur, S3 or S4. ABDOMEN: Soft, supple without mass, organomegaly or tenderness. Evidence for diastasis recti, for which the patient was reassured and is noted. Bowel sounds positive. No mass or organomegaly. EXTREMITIES: Reveal no cyanosis, clubbing or edema. ASSESSMENT AND PLAN: The patient is being set up for surveillance colonoscopy due to past history of colon polyps on 11/11/2020. Prep instructions were given and questions were answered. I thank you for the referral of this pleasant gentleman. Job ID: [id number] DocumentID: [id number] Dictated Date: 12/24/2020 13:56:54 Care Manager Date: 12/24/2020 14:11:52 Dictated By: MARCELO BURNETT MD
[~2021-01-11] VITALS: Ht 190.5 cm; Wt 101.2 kg
[~2021-01-11] MED LIST changes: +LACTATED RINGERS 1,000 ML IV ONE; +LACTATED RINGERS 1,000 ML IV STA; +LIDOCAINE JELLY 2% 6 ML SYRINGE MM PRN; +METF-397 PO; +PROP80TA3 PO; +ROSU5TAB13 PO; +proPOfol 200 MG/20 ML (DIPRIVAN) VIAL IV ONE
--- NOTE | 2021-01-11 08:02 | Pre-Op Note & Conscious Sedat ---
Pre-Operative Progress Note H&P Reviewed The H&P was reviewed, patient examined and no changes noted. Date H&P Reviewed: Jan 11, 2021 Time H&P Reviewed: 08:02 Conscious Sedation Pre-Proced ASA Score 2 For ASA 3 and 4: Consider anesthesia and medical clearance. Also, for patients with a history of failed moderate sedation consider anesthesia. Airway Lungs Heart ASA score ASA 1: a normal healthy patient ASA 2: a patient with a mild systemic disease (mid diabetes, controlled hypertension, obesity ASA 3: a patient with a severe systemic disease that limits activity (angina, COPD, prior Myocardial infarction) ASA 4: a patient with an incapacitating disease that is a constant threat to life (CHF, renal failure) ASA 5: a moribund patient not expected to survive 24 hrs. (ruptured aneurysm) ASA 6: a declared brain- patient whose organs are being harvested. For emergent operations, add the letter E after the classification Mallampati Classification Grade 2 Sedation Plan Analgesia, Amnesia, Plan communicated to team members, Discussed options with patient/fam, Discussed risks with patient/fam The patient is an appropriate candidate to undergo the planned procedure, sedation, and anesthesia. The patient immediately re-assessed prior to indication. MARCELO BURNETT MD Jan 11, 2021 08:02
[2021-01-11 08:10] VITALS: BP 145/72
[2021-01-11 09:25] VITALS: BP 117/62
[2021-01-11 09:30] VITALS: BP 105/57
[2021-01-11 09:50] VITALS: BP 139/76
[2021-01-11 10:00] VITALS: BP 139/76
--- NOTE | 2021-01-11 12:26 | Anesthesia-General Post-Op ---
MAC Patient Condition Mental Status/LOC: Same as Preop Cardiovascular: Satisfactory Nausea/Vomiting: Absent Respiratory: Satisfactory Pain: Controlled Complications: Absent Post Op Complications Complications None Follow Up Care/Instructions Patient Instructions None needed. Anesthesiology Discharge Order Discharge Order Patient is doing well, no complaints, stable vital signs, no apparent adverse anesthesia problems. No complications reported per nursing. AWA GALVAN CRNA Jan 11, 2021 12:26
--- NOTE | 2021-01-11 18:14 | OPERATIVE REPORT ---
DATE OF SERVICE: COLONOSCOPY SUMMARY INDICATION FOR THE PROCEDURE: Surveillance colonoscopy and history of colon polyps. DESCRIPTION OF PROCEDURE: The patient was placed in the left lateral decubitus position. Prior to undergoing colonoscopy, a digital rectal evaluation was performed. Anal sphincter tone was normal and the perianal reflexes intact. The prostate is normal in size and anodular on digital inspection. No abnormalities were noted on digital inspection of anal canal or distal rectal vault. The colonoscope was then inserted into the rectum and under direct visualization advanced to the cecum. The cecum was identified by identification of the ileocecal valve and cecal strap. Photographic documentation was obtained. Quality of prep was good. The patient tolerated the procedure well. FINDINGS: There was no evidence for internal or external hemorrhoids. The rectum was unremarkable. Several small sigmoid diverticulum were present without evidence for diverticulitis. No other sigmoid colonic abnormalities were appreciated. The descending colon, splenic flexure, transverse colon, hepatic flexure, ascending colon and cecum were unremarkable. ASSESSMENT: Mild diverticular disease confined to the sigmoid colon was present with otherwise normal colonoscopy to the cecum. Considering this patient's age, it is debatable as to the benefits of future screening colonoscopy, but I would advocate only consideration in 10 years. I thank you for the referral of this pleasant gentleman. Job ID: [id number] DocumentID: [id number] Dictated Date: 01/11/2021 09:27:23 Equity Research Analyst Date: 01/11/2021 18:13:22 Dictated By: MARCELO BURNETT MD [facility]
== END ==
LOC: ENDO 07:57
PROVIDERS: ATTEND Internal Medicine
DX: Z12.11 Encounter for screening for malignant neoplasm of colon (principal); K57.30 Diverticulosis of large intestine without perforation or abscess without bleeding; E11.9 Type 2 diabetes mellitus without complications; E78.5 Hyperlipidemia, unspecified; I10 Essential (primary) hypertension; F17.210 Nicotine dependence, cigarettes, uncomplicated; Z79.84 Long term (current) use of oral hypoglycemic drugs; Z86.010 Personal history of colon polyps; Z79.899 Other long term (current) drug therapy